=== PATIENT | male | born 1975 | race African-American/Black ===

== ENCOUNTER 2017-09-12 15:11 | Inpatient (IN) | payer OTHER, SELFPAY ==
[2017-09-12 17:13] LABS: Absolute Lymphocytes (CBC) 0.6 K/uL (0.7-4.9); Absolute Monocytes 0.4 K/uL (0.1-1.3); Absolute Neutrophil 1.8 K/uL (1.8-8.0); Basophils % 1.1 % (0-1.3); Eosinophils % 9.7 % (0-4.4); Hematocrit 29.4 % (39.6-49.0); Lymphocytes % 19.4 % (15.3-44.8); MCH 25.6 pg (27.0-35.0); MCV 79.4 fL (80-100); Monocytes % 11.7 % (3.3-12.3)
[2017-09-12 17:22] LABS: Protime INR 1.03
[2017-09-12 17:29] LABS: Albumin 4.4 g/dL (3.2-5.5); Bilirubin Direct 0.1 mg/dL (0-0.2); Bilirubin Total 0.9 mg/dL (0.3-1.2); Magnesium 2.2 mg/dL (1.8-2.5); Protein, Total 7.5 g/dL (6.0-8.3)
[2017-09-12 17:32] LABS: CKMB Creatine Kinase MB 6.7 ng/ml (0.3-4.0)
--- NOTE | 2017-09-12 17:41 | EDPHYS ---
Physician Documentation [facility] Name: Jermaine Rivera Age: 42 yrs Sex: Male : 1975 Arrival Date: 09/12/2017 Time: 15:15 Bed 19 Private MD: ED Physician Riley Stovall HPI: 09/12 17:35 This 42 yrs old Black Male presents to ER via Ambulatory with complaints of Vomiting, iris Feet Swelling. 17:35 The patient presents to the emergency department with nausea. Onset: The iris symptoms/episode began/occurred 3 day(s) ago. 17:36 The patient presents with swelling. Modifying factors: The symptoms are alleviated by iris nothing. the symptoms are aggravated by nothing. Associated signs and symptoms: The patient has no apparent associated signs or symptoms. Possible causes: renal failure. The symptoms are aggravated by nothing. The symptoms are alleviated by nothing. Historical: - Allergies: 15:19 No Known Allergies; hj - PMHx: 15:19 Hypertension; Renal Disease; hj - PSHx: 15:19 None; hj - Immunization history:: Adult Immunizations unknown. - Social history:: Smoking status: Patient/guardian denies using tobacco. - Family history:: not pertinent. ROS: 17:37 Constitutional: Negative for fever, chills, and weight loss, Eyes: Negative for injury, iris pain, redness, and discharge, ENT: Negative for injury, pain, and discharge, Neck: Negative for injury, pain, and swelling, Cardiovascular: Negative for chest pain, palpitations, and edema, Abdomen/GI: Negative for abdominal pain, nausea, vomiting, diarrhea, and constipation, Back: Negative for injury and pain, : Negative for injury, bleeding, discharge, and swelling, MS/Extremity: Negative for injury and deformity, Skin: Negative for injury, rash, and discoloration, Neuro: Negative for headache, weakness, numbness, tingling, and seizure, Psych: Negative for depression, anxiety, suicide ideation, homicidal ideation, and hallucinations, Allergy/Immunology: Negative for hives, rash, and allergies, Endocrine: Negative for neck swelling, polydipsia, polyuria, polyphagia, and marked weight changes, Hematologic/Lymphatic: Negative for swollen nodes, abnormal bleeding, and unusual bruising. 17:37 Respiratory: Positive for cough, shortness of breath. Exam: 17:37 Constitutional: This is a well developed, well nourished patient who is awake, alert, iris and in no acute distress. Head/Face: Normocephalic, atraumatic. Eyes: Pupils equal round and reactive to light, extra-ocular motions intact. Lids and lashes normal. Conjunctiva and sclera are non-icteric and not injected. Cornea within normal limits. Periorbital areas with no swelling, redness, or edema. ENT: Nares patent. No nasal discharge, no septal abnormalities noted. Tympanic membranes are normal and external auditory canals are clear. Oropharynx with no redness, swelling, or masses, exudates, or evidence of obstruction, uvula midline. Mucous membranes moist. Neck: Trachea midline, no thyromegaly or masses palpated, and no cervical lymphadenopathy. Supple, full range of motion without nuchal rigidity, or vertebral point tenderness. No Meningismus. Chest/axilla: Normal chest wall appearance and motion. Nontender with no deformity. No lesions are appreciated. Cardiovascular: Regular rate and rhythm with a normal S1 and S2. No gallops, murmurs, or rubs. Normal PMI, no JVD. No pulse deficits. Respiratory: Lungs have equal breath sounds bilaterally, clear to auscultation and percussion. No rales, rhonchi or wheezes noted. No increased work of breathing, no retractions or nasal flaring. Abdomen/GI: Soft, non-tender, with normal bowel sounds. No distension or tympany. No guarding or rebound. No evidence of tenderness throughout. Back: No spinal tenderness. No costovertebral tenderness. Full range of motion. Skin: Warm, dry with normal turgor. Normal color with no rashes, no lesions, and no evidence of cellulitis. Neuro: Awake and alert, GCS 15, oriented to person, place, time, and situation. Cranial nerves II-XII grossly intact. Motor strength 5/5 in all extremities. Sensory grossly intact. Cerebellar exam normal. Normal gait. Psych: Awake, alert, with orientation to person, place and time. Behavior, mood, and affect are within normal limits. 17:37 Musculoskeletal/extremity: Extremities: grossly normal except: swelling, ROM: full active range of motion, full passive range of motion, Circulation is intact in all extremities. Compartment Syndrome exam of affected extremity: is normal. DVT Exam: no pain, no tenderness, negative Homans' sign noted on exam, no appreciated bluish discoloration, no erythema, no increased warmth, swelling. Vital Signs: 15:19 BP 166 / 103; Pulse 87; Resp 18; Temp 98.4(TE); Pulse Ox 100% on R/A; Weight 83.91 kg; hj Height 6 ft. 1 in. (185.42 cm); 17:04 BP 165 / 105; Pulse 74; Resp 18; Temp 98.1; Pulse Ox 99% on R/A; Pain 8/10; ch 19:18 BP 171 / 105; Pulse 81; Resp 20; Temp 98.2; Pulse Ox 99% on R/A; Pain 7/10; ch 15:19 Body Mass Index 24.41 (83.91 kg, 185.42 cm) hj MDM: 15:47 Patient medically screened. [facility] 17:38 Data reviewed: vital signs, nurses notes, lab test result(s), EKG, radiologic studies, iris plain films. 09/12 16:38 Order name: Basic Metabolic Panel [facility] 09/12 16:38 Order name: BNP; Complete Time: 17:54 [facility] 09/12 16:38 Order name: CBC with Diff; Complete Time: 17:14 [facility] 09/12 16:38 Order name: Ckmb [facility] 09/12 16:38 Order name: CPK [facility] 09/12 16:38 Order name: LFT's 09/12 16:38 Order name: Magnesium [facility] 09/12 16:38 Order name: PT-INR; Complete Time: 17:54 09/12 16:38 Order name: Ptt, Activated; Complete Time: 17:54 [facility] 09/12 16:38 Order name: Troponin (emerg Dept Use Only); Complete Time: 17:32 09/12 16:38 Order name: XRAY Chest (1 view) 09/12 16:38 Order name: EKG; Complete Time: 16:39 09/12 16:38 Order name: Cardiac monitoring; Complete Time: 17:08 09/12 16:38 Order name: EKG - Nurse/Tech; Complete Time: 18:35 09/12 16:38 Order name: IV Saline Lock; Complete Time: 17:09 09/12 16:38 Order name: Labs collected and sent; Complete Time: 17:09 [facility] 09/12 16:38 Order name: O2 Per Protocol; Complete Time: 17: [facility] 09/12 16:38 Order name: O2 Sat Monitoring; Complete Time: 17: [facility] 09/12 17:44 Order name: CONS Physician Consult EDMS Administered Medications: 17:55 Drug: Kayexalate 45 grams Route: PO; ch 18:38 Follow up: Response: No adverse reaction; Marked relief of symptoms ch 17:55 Drug: Zofran 4 mg Route: IVP; Site: left forearm; ch 18:37 Follow up: Response: No adverse reaction; Marked relief of symptoms ch 18:00 Drug: D50W 50 ml Route: IVP; Site: left forearm; ch 18:37 Follow up: Response: No adverse reaction; Marked relief of symptoms ch 18:00 Drug: Albuterol - atroVENT (3:1) (2.5 mg - 0.5 mg) 3 ml Route: Nebulizer; ch 18:37 Follow up: Response: No adverse reaction; Marked relief of symptoms ch 18:05 Drug: Sodium Bicarbonate 1 amp Route: IVP; Site: left forearm; ch 19:20 Follow up: Response: No adverse reaction; Marked relief of symptoms ch 18:05 Drug: Insulin Regular Human 10 units {Co-Signature: ae1 (Teja Lao RN).} Route: ch IVP; Site: left forearm; 19:30 Follow up: Response: No adverse reaction ch 18:15 Drug: Calcium Gluconate 1 grams Route: IVPB; Infused Over: 20 mins; Site: left forearm; ch 18:38 Follow up: IV Status: Completed infusion ch 19:20 Follow up: IV Status: Completed infusion ch Disposition: 09/12/17 17:40 Hospitalization ordered by Jeferson Mccrary for Inpatient Admission. Preliminary diagnosis are Unspecified kidney failure - acute on chronic, Hyperkalemia, Essential (primary) hypertension. - Bed requested for Telemetry/MedSurg (Inpatient). - Status is Inpatient Admission. ch - Condition is Fair. - Problem is new. - Symptoms have improved. UTI on Admission? No Signatures: Dispatcher [employer] EDMS Vanessa Maravilla RN RN ch Anderson, Corey, MD MD cha Joaquin, Henry, RN RN Kate Tan RN RN yaya Lao RN ae1
--- NOTE | 2017-09-12 17:41 | ER ---
Nurse's Notes [facility] Name: Jermaine Rivera Age: 42 yrs Sex: Male : 1975 Arrival Date: 09/12/2017 Time: 15:15 Bed 19 Private MD: Diagnosis: Unspecified kidney failure-acute on chronic;Hyperkalemia;Essential (primary) hypertension Presentation: 09/12 15:17 Presenting complaint: Patient states: i noticed my feet is swollen for a week now, hx hj of renal failure, haven't had dialysis for a month; reports nausea;. Transition of care: patient was not received from another setting of care. Onset of symptoms was September 12, 2017. Care prior to arrival: None. 15:17 Method Of Arrival: Ambulatory 15:17 Acuity: FERNANDA 3 hj Triage Assessment: 15:19 General: Appears in no apparent distress. uncomfortable, Behavior is calm, cooperative, hj appropriate for age. Pain: Complains of pain in right leg and left leg. GI: Reports lower abdominal pain, upper abdominal pain, nausea. Historical: - Allergies: 15:19 No Known Allergies; hj - PMHx: 15:19 Hypertension; Renal Disease; hj - PSHx: 15:19 None; hj - Immunization history:: Adult Immunizations unknown. - Social history:: Smoking status: Patient/guardian denies using tobacco. - Family history:: not pertinent. Screenin:04 Abuse screen: Denies threats or abuse. Denies injuries from another. Nutritional ch screening: No deficits noted. Tuberculosis screening: No symptoms or risk factors identified. Fall Risk None identified. Assessment: 15:19 GI: Abdomen is non-distended. hj 17:04 General: Appears in no apparent distress. uncomfortable, Behavior is calm, cooperative, ch appropriate for age. Pain: Complains of pain in abdomen, right foot, left foot, right cruz, anterior aspect of right ankle, dorsum of right foot, left cruz, anterior aspect of left ankle and dorsum of left foot Pain currently is 8 out of 10 on a pain scale. Pain began suddenly. Neuro: No deficits noted. Respiratory: Airway is patent Respiratory effort is even, unlabored, Breath sounds are coarse bilaterally. GI: Bowel sounds present X 4 quads. Abd is soft X 4 quads Abd is non tender X 4 quads. : Reports PT STATES HE URINATES BUT NOT MUCH. Derm: Skin is intact, Skin is dry, Skin is normal, Skin temperature is warm. Musculoskeletal: Reports pain in abdomen, right foot, left foot, right leg and left leg. 18:12 Reassessment: duck tape removed from dialysis port, wound cleaned very well with galdino vail and re dressed with central line dressing kit. pt tolerated well. 18:36 Reassessment: Patient appears in no apparent distress at this time. No changes from previously documented assessment. Patient and/or family updated on plan of care and expected duration. Pain level reassessed. Patient is alert, oriented x 3, equal unlabored respirations, skin warm/dry/pink. 19:18 Reassessment: Patient appears in no apparent distress at this time. Patient and/or ch family updated on plan of care and expected duration. Pain level reassessed. Patient is alert, oriented x 3, equal unlabored respirations, skin warm/dry/pink. Patient states symptoms have improved. 19:31 Reassessment: Patient appears in no apparent distress at this time. pt cannot urinate ch for me in the room. report given to Dialysis nurse, and dialysis nurse takes pt from room. she states she will take the pt to his room in 3-4 hours when the dialysis is finished. 19:43 Reassessment: Patient appears in no apparent distress at this time. report given to Hetal Meng on floor. pt will be transported to floor after dialysis by the dialysis nurse. family verb understanding of where pt will be, family takes all fo pt belongings. Vital Signs: 15:19 BP 166 / 103; Pulse 87; Resp 18; Temp 98.4(TE); Pulse Ox 100% on R/A; Weight 83.91 kg; Height 6 ft. 1 in. (185.42 cm); 17:04 BP 165 / 105; Pulse 74; Resp 18; Temp 98.1; Pulse Ox 99% on R/A; Pain 8/10; ch 19:18 BP 171 / 105; Pulse 81; Resp 20; Temp 98.2; Pulse Ox 99% on R/A; Pain 7/10; ch 15:19 Body Mass Index 24.41 (83.91 kg, 185.42 cm) ED Course: 15:15 Patient arrived in ED. mr 15:18 Triage completed. hj 15:19 Arm band placed on left wrist. hj 15:47 Riley Stovall MD is Attending Physician. iris 16:46 Vanessa Maravilla, CHRISTOPHE is Primary Nurse. ch 17:04 No apparent distress. Resting quietly. ch 17:04 Patient has correct armband on for positive identification. Placed in gown. Bed in low ch position. Call light in reach. Side rails up X 1. street department dispatcher on. Pulse ox on. NIBP on. Warm blanket given. 17:04 No provider procedures requiring assistance completed. Initial lab(s) drawn, by hi, ch sent to lab. Inserted saline lock: 22 gauge in left forearm, using aseptic technique. Blood collected. 17:32 EKG done, by therapy technician. reviewed by Riley Stovall MD. at1 17:34 X-ray completed. Portable x-ray completed in exam room. Patient tolerated procedure ag1 well. 17:36 XRAY Chest (1 view) In Process Unspecified. EDCT 17:39 Jeferson Mccrary DO is Hospitalizing Provider. iris 19:18 Patient admitted, IV remains in place. ch Administered Medications: 17:55 Drug: Kayexalate 45 grams Route: PO; ch 18:38 Follow up: Response: No adverse reaction; Marked relief of symptoms ch 17:55 Drug: Zofran 4 mg Route: IVP; Site: left forearm; ch 18:37 Follow up: Response: No adverse reaction; Marked relief of symptoms ch 18:00 Drug: D50W 50 ml Route: IVP; Site: left forearm; ch 18:37 Follow up: Response: No adverse reaction; Marked relief of symptoms ch 18:00 Drug: Albuterol - atroVENT (3:1) (2.5 mg - 0.5 mg) 3 ml Route: Nebulizer; ch 18:37 Follow up: Response: No adverse reaction; Marked relief of symptoms ch 18:05 Drug: Sodium Bicarbonate 1 amp Route: IVP; Site: left forearm; ch 19:20 Follow up: Response: No adverse reaction; Marked relief of symptoms ch 18:05 Drug: Insulin Regular Human 10 units {Co-Signature: ae1 (Teja Lao RN).} Route: ch IVP; Site: left forearm; 19:30 Follow up: Response: No adverse reaction ch 18:15 Drug: Calcium Gluconate 1 grams Route: IVPB; Infused Over: 20 mins; Site: left forearm; 18:38 Follow up: IV Status: Completed infusion 19:20 Follow up: IV Status: Completed infusion Outcome: 17:40 Decision to Hospitalize by Provider. [facility] 19:19 Admitted to Med/surg 19:19 Condition: stable 19:44 Patient left the ED. Signatures: Dispatcher [employer] EDMS Vanessa Maravilla RN RN Riley Johns MD MD cha Rivera, Maria mr Britt moses, chief contract officer EKG Tat1 Rukhsana Neri ag1 Alex Ozuna RN RN Teja Lao RN ae1
--- NOTE | 2017-09-12 17:53 | RAD REPORT ---
EXAM DESCRIPTION: RAD - Chest Single View - 09/12/2017 5:36 pm CLINICAL HISTORY: Chest pain, nausea COMPARISON: 08/15/2017 FINDINGS: Portable technique limits examination quality. The lungs are grossly clear. The heart is normal in size. No displaced fractures.Right-sided venous c atheter its tip in the SVC. IMPRESSION: No acute intrathoracic process suspected.
[2017-09-12 17:57] LABS: Potassium 6.4 mEq/L (3.6-5.0)
[2017-09-12] MEDS ORDERED: CALCIUM GLUCONATE 1gm/100 ML NS (4.65 mEq/100mL) IV ONE ×2 (18:00)
[2017-09-12] MEDS ORDERED: IPRATROPIUM BROM 0.5MG/2.5ML ONE (18:04)
[2017-09-12] MEDS ORDERED: ALBUTEROL 2.5 MG/3 ML NEB SOL ONE (18:04)
[2017-09-12] MEDS ORDERED: INSULIN -REGULAR HUMAN 50 UNIT/0.5 ML ML ONE (18:04)
[2017-09-12] MEDS ORDERED: SOD POLYSTYREN SUL 15 GM/60 ML UCUP ONE (18:05)
[2017-09-12] MEDS ORDERED: SODIUM BICARB 50 MEQ/50ML VIAL ONE (18:05)
[2017-09-12] MEDS ORDERED: D50W 25 GM/50 ML SYRINGE IV ONE (18:06)
[2017-09-12] MEDS ORDERED: ACETAMINOPHEN 500 MG TAB PO PRN (18:10)
[2017-09-12] MEDS ORDERED: ONDANSETRON 4 MG/2 ML VIAL IV PRN (18:10)
[2017-09-12] MEDS ORDERED: ONDANSETRON 4 MG/2 ML VIAL ONE (18:13)
--- NOTE | 2017-09-12 18:29 | P.HP ---
Certification for Inpatient Patient admitted to: Inpatient With expected LOS: >2 Midnights Patient will require the following post-hospital care: Other Practitioner: I am a practitioner with admitting privileges, knowledge of patient current condition, hospital course, and medical plan of care. Services: Services provided to patient in accordance with Admission requirements found in Title 42 Section 412.3 of the Code of Federal Regulations Patient History Date of Service: 09/12/17 Primary Care Provider: Dr. Lomeli Reason for admission: Fatigue, acute renal failure History of Present Illness: 42-year-old male presented emergency room with increasing fatigue, lower extremity pain and acute renal failure. Patient has history of end-stage renal disease and hypertension. He is not able to get dialysis due to insurance purposes. He is waiting to get Medicare. Once Medicare approves for him to get dialysis then he will start. Today he was complaining of pain to the lower extremities. He had some mild shortness of breath. No chest pain was noted. Increasing nausea and vomiting was noted. He reported some fatigue and poor appetite. He has not eaten well over the last week. His last dialysis was about 1 month ago. In the ER the patient was evaluated. White count 3.0, hemoglobin 9.5, platelet count of 86. Chest x-ray unremarkable. Sodium 133, potassium 6.4, BUN of 167. Creatinine 40. GFR of 1. Glucose 81. Alk-phos 32. CK of 6.7. Troponin 0.21. BNP 231. The patient was treated for his hyperkalemia in the emergency room. He will be admitted for dialysis. Nephrology has been consulted. When I saw the patient ER, he appeared comfortable. He did report some fatigue. No significant nausea vomiting noted. Patient appears compliant with his medications. Allergies No Known Allergies Allergy (Verified 08/06/17 01:36) Home medications list reviewed: Yes Home Medications: Metoprolol Tartrate [Lopressor*] 100 mg PO BID #60 tab 05/17/17 Terazosin HCl [Hytrin*] 10 mg PO BID #60 cap 05/17/17 Calcitrol [Rocaltrol*] 0.5 mcg PO DAILY #30 cap 08/12/17 Cholecalciferol (Vitamin D3) [Vitamin D 5,000 IU Cap*] 5,000 unit PO DAILY #30 cap 08/12/17 Hydralazine HCl [Apresoline] 100 mg PO TID #90 tablet 08/12/17 Levofloxacin [Levaquin*] 500 mg PO Q48H #5 tab 08/12/17 Nifedipine [Procardia Xl] 90 mg PO BID #60 tab.er.24 08/12/17 Ramipril [Altace] 10 mg PO DAILY #30 capsule 08/12/17 Sevelamer Carbonate [Renvela*] 1,600 mg PO TIDWM #90 tablet 08/12/17 - Past Medical/Surgical History Diabetic: No -: Hypertension -: End-stage renal disease -: Diastolic CHF -: Anemia of chronic disease -: Thrombocytopenia -: Left foot sx Psychosocial/ Personal History: The patient is single. He has 9 children. He does not work. He recently got out of residential in May of 2016. - Family History Mother -: Heart disease, Hypertension, Kidney disease - Social History Smoking Status: Unknown if ever smoked Alcohol use: No CD- Drugs: No Caffeine use: Yes Place of Residence: Home Review of Systems General: Weakness, Malaise, As per HPI Eyes: Unremarkable ENT: Unremarkable Respiratory: Shortness of Breath, As per HPI Cardiovascular: As per HPI Gastrointestinal: Nausea, Vomiting, As per HPI Genitourinary: Unremarkable Musculoskeletal: Leg Pain, As per HPI Integumentary: Unremarkable Neurological: Weakness, As per HPI Lymphatics: Unremarkable Physical Examination - Physical Exam General: Alert, In no apparent distress, Oriented x3, Cooperative HEENT: Atraumatic, Normocephalic, PERRLA, Other (Dry mucous membranes) Neck: Supple, No Thyromegaly Respiratory: Clear to auscultation bilaterally, Normal air movement Cardiovascular: Normal pulses, Regular rate/rhythm Gastrointestinal: Normal bowel sounds, Soft and benign, Non-distended, No tenderness, No masses, No rebound, No guarding Musculoskeletal: No erythema, No warmth, Tenderness (Pain to the lower extremities bilateral. No significant edema noted.) Integumentary: No tenderness/swelling, No erythema, No warmth, No cyanosis Neurological: Normal speech, Normal strength at 5/5 x4 extr, Normal tone, Normal affect Lymphatics: No axilla or inguinal lymphadenopathy - Studies Laboratory Data (last 24 hrs) 09/12/17 17:00: PT 12.2, INR 1.03, APTT 26.8 09/12/17 17:00: WBC 3.0 L, Hgb 9.5 L, Hct 29.4 L, Plt Count 86 L 09/12/17 17:00: B-Natriuretic Peptide 238 H 09/12/17 17:00: Sodium 133 L, Potassium 6.4 H*, BUN 162 H, Creatinine 40.46 H*, Glucose 81, Magnesium 2.2, Total Bilirubin 0.9, AST 21, ALT 10, Alkaline Phosphatase 32 L Assessment and Plan - Problems (Diagnosis) (1) Chronic renal disease Current Visit: Yes Status: Acute Plan: His last dialysis was 1 month ago. Patient will need a emergent dialysis. ER has contacted nephrology. Patient will be given medication for hyperkalemia. Will continue with his blood pressure medication. Anticipate better control of blood pressure and symptoms after dialysis. Will monitor closely. Qualifiers: Chronic kidney disease stage: stage 5, not on chronic dialysis Qualified Code(s): N18.5 - Chronic kidney disease, stage 5 (2) CHF (congestive heart failure) Current Visit: Yes Status: Chronic Plan: Patient with chronic CHF. Will monitor closely. Qualifiers: Heart failure type: diastolic Heart failure chronicity: chronic Qualified Code(s): I50.32 - Chronic diastolic (congestive) heart failure (3) Pulmonary hypertension Current Visit: Yes Status: Chronic Plan: Patient with chronic pulmonary hypertension. Will restart home medications. (4) Thrombocytopenia Current Visit: Yes Status: Chronic Plan: Thrombocytopenia noted. Likely from chronic disease. Will monitor closely. (5) Hyperkalemia Current Visit: Yes Status: Acute Plan: Patient given medication in the ER. Patient will need dialysis. Nephrology consulted. (6) Nausea and vomiting Current Visit: Yes Status: Acute Plan: Will provide medication as needed. This is likely from uremia. Qualifiers: Vomiting type: unspecified Vomiting Intractability: unspecified Qualified Code(s): R11.2 - Nausea with vomiting, unspecified (7) Anemia Onset Date: 08/07/17 Current Visit: No Status: Chronic Plan: This is likely from chronic disease. Will monitor closely. Qualifiers: Anemia type: due to chronic kidney disease Chronic kidney disease stage: stage 5, not on chronic dialysis Qualified Code(s): N18.5 - Chronic kidney disease, stage 5; D63.1 - Anemia in chronic kidney disease; D63.1 - Anemia in chronic kidney disease Discharge Plan: Home Plan to discharge in: Greater than 2 days - Advance Directives Does patient have a Living Will: No Does patient have a Durable POA for Healthcare: No - Code Status/Comfort Care Code Status Assessed: Yes Time Spent Managing Pts Care (In Minutes): 55
--- NOTE | 2017-09-12 19:06 | EKG ---
Test Date: 2017-09-12 Test Time: 17:20:46 [employer] Mason: NATALIA MEASUREMENT RESULTS: Intervals: Rate: 87 NC: 132 QRSD: 94 QT: 396 QTc: 476 [place]: P: 79 NC: 132 QRS: 53 T: 121 INTERPRETIVE STATEMENTS: Normal sinus rhythm Minimal voltage criteria for LVH, may be normal variant T wave abnormality, consider lateral ischemia Prolonged QT Abnormal ECG Compared to ECG 08/15/2017 13:28:12 Left ventricular hypertrophy now present Prolonged QT interval now present T-wave abnormality still present Electronically Signed On 09-12-17 19:05:36 CDT by Naveen Vasquez
[2017-09-12] MEDS: NIFEDIPINE XL 90 MG TABLET PO SCH (21:49)
[2017-09-12] MEDS: METOPROLOL TAR 50 MG TAB PO SCH (21:49)
[2017-09-12] MEDS ORDERED: SODIUM CHLORIDE 0.9% 10ML INJ IV PRN (21:49)
[2017-09-12] MEDS: HYDRALAZINE HCL 25 MG TABLET PO SCH (21:49)
[2017-09-12] MEDS: TERAZOSIN HCL 5 MG CAP PO SCH (21:49)
[2017-09-12] MEDS: ENOXAPARIN 30 MG/0.3 ML SQ SCH (22:40)
[2017-09-12 23:44] VITALS: BMI 19.3
[2017-09-13] MEDS ORDERED: HYDRALAZINE HCL 20 MG/ML VIAL IV PRN (03:02)
[2017-09-13] MEDS ORDERED: ZOLPIDEM TARTRATE 10 MG TABLET PO ONE (03:22)
[2017-09-13 06:12] LABS: Absolute Lymphocytes (CBC) 0.6 K/uL (0.7-4.9); Absolute Monocytes 0.3 K/uL (0.1-1.3); Absolute Neutrophil 1.9 K/uL (1.8-8.0); Basophils % 0.9 % (0-1.3); Eosinophils % 5.3 % (0-4.4); Hematocrit 27.6 % (39.6-49.0); Lymphocytes % 20.9 % (15.3-44.8); MCH 26.3 pg (27.0-35.0); MCV 77.4 fL (80-100); MPV 8.1 fL (7.6-11.3); Monocytes % 10.9 % (3.3-12.3); RBC Red Blood Cell Count 3.57 M/uL (4.33-5.43)
[2017-09-13 08:07] LABS: Blood Morphology Comment NOT SEEN (NOT SEEN); Platelet Estimate DECR; Urine White Blood Cell Casts OK
--- NOTE | 2017-09-13 08:26 | P.PN ---
Subjective Date of Service: 09/13/17 Primary Care Provider: Dr. Lomeli Chief Complaint: Fatigue, acute renal failure Subjective: Improving (Patient doing better than yesterday. Patient did receive dialysis yesterday) Physical Examination - Vital Signs Temperature: 98.4 F Blood Pressure: 165/79 Pulse: 92 Respirations: 16 Pulse Ox (%): 98 - Physical Exam General: Alert, In no apparent distress, Oriented x3, Cooperative HEENT: Atraumatic Neck: Supple, No Thyromegaly Respiratory: Clear to auscultation bilaterally, Normal air movement Cardiovascular: Normal pulses, Regular rate/rhythm Gastrointestinal: Normal bowel sounds, Soft and benign, Non-distended, No tenderness, No masses, No rebound, No guarding Musculoskeletal: No erythema, No tenderness, No warmth Integumentary: No tenderness/swelling, No erythema, No warmth, No cyanosis Neurological: Normal speech, Normal strength at 5/5 x4 extr, Normal tone, Normal affect - Studies Laboratory Data (last 24 hrs) 09/12/17 17:00: PT 12.2, INR 1.03, APTT 26.8 09/12/17 17:00: WBC 3.0 L, Hgb 9.5 L, Hct 29.4 L, Plt Count 86 L 09/12/17 17:00: B-Natriuretic Peptide 238 H 09/12/17 17:00: Sodium 133 L, Potassium 6.4 H*, BUN 162 H, Creatinine 40.46 H*, Glucose 81, Magnesium 2.2, Total Bilirubin 0.9, AST 21, ALT 10, Alkaline Phosphatase 32 L Medications List Reviewed: Yes Assessment & Plan - Problems (Diagnosis) (1) Chronic renal disease Current Visit: Yes Status: Acute Plan: His last dialysis was 1 month ago. Patient did receive dialysis yesterday. Anticipate he received it again today peer away to review lab. Will discuss with nephrology. Will have social service consulted to see if chronic dialysis can be expedited. Patient waiting to get on chronic dialysis. I will be out of town this weekend. Dr. Green will cover for me. Qualifiers: Chronic kidney disease stage: stage 5, not on chronic dialysis Qualified Code(s): N18.5 - Chronic kidney disease, stage 5 (2) CHF (congestive heart failure) Current Visit: Yes Status: Chronic Plan: Patient with chronic CHF. Will monitor closely. Qualifiers: Heart failure type: diastolic Heart failure chronicity: chronic Qualified Code(s): I50.32 - Chronic diastolic (congestive) heart failure (3) Pulmonary hypertension Current Visit: Yes Status: Chronic Plan: Patient with chronic pulmonary hypertension. Will continue to adjust blood pressure medication. Overall improved. (4) Thrombocytopenia Current Visit: Yes Status: Chronic Plan: Thrombocytopenia noted. Likely from chronic disease. Will monitor closely. (5) Hyperkalemia Current Visit: Yes Status: Acute Plan: Patient given medication in the ER. Patient did receive dialysis yesterday. Patient to get dialysis again today. (6) Nausea and vomiting Current Visit: Yes Status: Acute Plan: Will provide medication as needed. This is likely from uremia. Overall this has improved. Qualifiers: Vomiting type: unspecified Vomiting Intractability: unspecified Qualified Code(s): R11.2 - Nausea with vomiting, unspecified (7) Anemia Onset Date: 08/07/17 Current Visit: No Status: Chronic Plan: This is likely from chronic disease. Will monitor closely. Qualifiers: Anemia type: due to chronic kidney disease Chronic kidney disease stage: stage 5, not on chronic dialysis Qualified Code(s): N18.5 - Chronic kidney disease, stage 5; D63.1 - Anemia in chronic kidney disease; D63.1 - Anemia in chronic kidney disease Discharge Plan: Home Plan to discharge in: 48 Hours Time Spent Managing Pts Care (In Minutes): 55
[2017-09-13] MEDS: TERAZOSIN HCL 5 MG CAP PO SCH ×2 (09:00→20:41)
[2017-09-13] MEDS: HYDRALAZINE HCL 25 MG TABLET PO SCH ×3 (09:00→20:42)
[2017-09-13] MEDS: NIFEDIPINE XL 90 MG TABLET PO SCH ×2 (09:00→20:42)
[2017-09-13 10:17] LABS: Magnesium 1.9 mg/dL (1.8-2.5); Potassium 3.9 mEq/L (3.6-5.0); Thyroid Stimulating Hormone 0.61 uIU/mL (0.34-5.60)
[2017-09-13] MEDS: ENOXAPARIN 30 MG/0.3 ML SQ SCH (10:55)
[2017-09-13] MEDS: PANTOPRAZOLE 40 MG INJ IVP SCH (11:41)
[2017-09-13] MEDS: METOPROLOL TAR 50 MG TAB PO SCH ×2 (11:41→20:41)
[2017-09-13] MEDS ORDERED: MANNITOL 25% 12.5 GM/50 ML VIAL IV PRN (14:10)
[2017-09-13] MEDS ORDERED: NA CHLORIDE 0.9% 1,000 ML IV PRN (14:10)
--- NOTE | 2017-09-13 14:17 | P.CNS ---
Date of Consult: 09/13/17 Reason for Consult: ESRD Requesting Physician: Jeferson Mccrray Primary Care Provider: Dr. Lomeli Chief Complaint: Fatigue, acute renal failure History of Present Illness: 42-year-old male presented emergency room with increasing fatigue, lower extremity pain and acute renal failure. Patient has history of end-stage renal disease and hypertension. He is not able to get dialysis due to insurance purposes. He is waiting to get Medicare. Once Medicare approves for him to get dialysis then he will start. Today he was complaining of pain to the lower extremities. He had some mild shortness of breath. No chest pain was noted. Increasing nausea and vomiting was noted. He reported some fatigue and poor appetite. He has not eaten well over the last week. His last dialysis was about 1 month ago. 17:35 This 42 yrs old Black Male presents to ER via Ambulatory with complaints of Vomiting, iris Feet Swelling. 17:35 The patient presents to the emergency department with nausea. Onset: The iris symptoms/episode began/occurred 3 day(s) ago. 17:36 The patient presents with swelling. Modifying factors: The symptoms are alleviated by iris nothing. the symptoms are aggravated by nothing. Associated signs and symptoms: The patient has no apparent associated signs or symptoms. Possible causes: renal failure. The symptoms are aggravated by nothing. The symptoms are alleviated by nothing. Allergies No Known Allergies Allergy (Verified 08/06/17 01:36) Home medications list reviewed: Yes Home Medications: Calcitrol [Rocaltrol*] 0.5 mcg PO DAILY #30 cap 08/12/17 Cholecalciferol (Vitamin D3) [Vitamin D 5,000 IU Cap*] 5,000 unit PO DAILY #30 cap 08/12/17 Hydralazine HCl [Apresoline] 100 mg PO TID #90 tablet 08/12/17 Levofloxacin [Levaquin*] 500 mg PO Q48H #5 tab 08/12/17 Nifedipine [Procardia Xl] 90 mg PO BID #60 tab.er.24 08/12/17 Ramipril [Altace] 10 mg PO DAILY #30 capsule 08/12/17 Sevelamer Carbonate [Renvela*] 1,600 mg PO TIDWM #90 tablet 08/12/17 - Past Medical/Surgical History Diabetic: No -: Hypertension -: End-stage renal disease -: Diastolic CHF -: Anemia of chronic disease -: Thrombocytopenia -: Left foot sx Psychosocial/ Personal History: The patient is single. He has 9 children. He does not work. He recently got out of [facility] in May of 2016. - Family History Mother Medical History: Heart disease, Hypertension, Kidney disease - Social History Alcohol use: No CD- Drugs: No Caffeine use: No Place of Residence: Home Review of Systems 10-point ROS is otherwise unremarkable General: Weakness, Malaise Respiratory: SOB with Excertion Physical Examination Temp Pulse Resp BP Pulse Ox 98.7 F 97 H 16 179/88 H 99 09/13/17 11:36 09/13/17 11:41 09/13/17 11:36 09/13/17 11:41 09/13/17 11:36 General: Oriented x3, Cooperative HEENT: Atraumatic Neck: Supple Cardiovascular: No edema, Regular rate/rhythm Gastrointestinal: Soft and benign, Non-distended, No guarding Musculoskeletal: No clubbing, No contractures Integumentary: No rashes, No cyanosis Neurological: Normal speech Laboratory Data (last 24 hrs) 09/12/17 17:00: PT 12.2, INR 1.03, APTT 26.8 09/12/17 17:00: WBC 3.0 L, Hgb 9.5 L, Hct 29.4 L, Plt Count 86 L 09/12/17 17:00: B-Natriuretic Peptide 238 H 09/12/17 17:00: Sodium 133 L, Potassium 6.4 H*, BUN 162 H, Creatinine 40.46 H*, Glucose 81, Magnesium 2.2, Total Bilirubin 0.9, AST 21, ALT 10, Alkaline Phosphatase 32 L Imagings Data: EXAM DESCRIPTION: RAD - Chest Single View - 09/12/2017 5:36 pm CLINICAL HISTORY: Chest pain, nausea COMPARISON: 08/15/2017 FINDINGS: Portable technique limits examination quality. The lungs are grossly clear. The heart is normal in size. No displaced fractures.Right-sided venous catheter its tip in the SVC. IMPRESSION: No acute intrathoracic process suspected. Conclusions/Impression: A/ ESRD. Hyponatremia. HTN with CKD. Diastolic CHF, chronic. Anemia in CKD. Iron deficiency. GRAY/ Secondary HyperPTH. P/ Continue current POC and medications. Arrange for acute HD. Restart home medications as indicated. No NSAIDs. AM labs. Daily weight. Medicaid pending. Thank you kindly for the consultation. Case discussed with Dr. Mccrary.
[2017-09-13] MEDS ORDERED: ALBUMIN HUMAN 25% 50 ML IV SCH (15:00)
[2017-09-13] MEDS: EPOETIN ALFA 10,000 UNIT/ML VIAL IV SCH (17:34)
[2017-09-14 07:21] LABS: Absolute Lymphocytes (CBC) 0.5 K/uL (0.7-4.9); Absolute Monocytes 0.4 K/uL (0.1-1.3); Absolute Neutrophil 1.5 K/uL (1.8-8.0); Basophils % 0.7 % (0-1.3); Eosinophils % 7.3 % (0-4.4); Hematocrit 29.4 % (39.6-49.0); Lymphocytes % 20.5 % (15.3-44.8); MCH 25.5 pg (27.0-35.0); MCV 78.7 fL (80-100); MPV 8.4 fL (7.6-11.3); Monocytes % 14.3 % (3.3-12.3); RBC Red Blood Cell Count 3.74 M/uL (4.33-5.43)
[2017-09-14 07:38] LABS: Urine Appearance CLOUDY; Urine Blood NEGATIVE (NEG); Urine Color YELLOW; Urine Glucose NEGATIVE (NEG); Urine Protein 2+ (NEG); Urine Specific Gravity 1.015 (1.005-1.030); Urine Urobilinogen 0.2 mg/dL (0.2-1.0)
[2017-09-14 07:39] LABS: Phosphorus 7.7 mg/dL (2.5-4.3); Potassium 4.5 mEq/L (3.6-5.0)
[2017-09-14 08:02] LABS: Anisocytosis 1+; Blood Morphology Comment NOTED (NOT SEEN); Platelet Estimate DECR; Urine White Blood Cell Casts OK
[2017-09-14 08:11] LABS: Urine Bilirubin NEGATIVE (NEG); Urine Microscopic Reflex ORDER UMIC
[2017-09-14 08:12] LABS: Urine Amorphous Sediment 3+ /HPF (NONE SEEN); Urine Bacteria <20 /HPF (NONE SEEN); Urine Culture Reflex Order NOT NEEDED; Urine RBC <5 /HPF (NONE SEEN)
[2017-09-14] MEDS: PANTOPRAZOLE 40 MG INJ IVP SCH (08:53)
[2017-09-14] MEDS ORDERED: VITAMIN D 5,000 UNIT CAP PO SCH (09:00)
[2017-09-14] MEDS: HYDRALAZINE HCL 25 MG TABLET PO SCH ×2 (09:00→14:00)
[2017-09-14] MEDS: METOPROLOL TAR 50 MG TAB PO SCH (09:00)
[2017-09-14] MEDS: TERAZOSIN HCL 5 MG CAP PO SCH (09:00)
[2017-09-14] MEDS: ENOXAPARIN 30 MG/0.3 ML SQ SCH (09:00)
[2017-09-14] MEDS: NIFEDIPINE XL 90 MG TABLET PO SCH (09:00)
[2017-09-14] MEDS ORDERED: CALCITROL 0.25 MCG CAP PO SCH (09:00)
--- NOTE | 2017-09-14 10:54 | P.DS ---
Admission Date: 09/12/17 Discharge Date: 09/14/17 Primary Care Provider: Dr. Lomeli Disposition: ROUTINE DISCHARGE Discharge Condition: FAIR Reason for Admission: Fatigue, acute renal failure Brief History of Present Illness: Patient is 42 years of age admitted with fatigue had renal failure Hospital Course: No problems during the course of the stay he underwent dialysis that day of discharge was complaining feeling dizzy vital signs all stable orthostatics blood pressures ordered mild anemia nephrology consulted At the time of discharge he was alert oriented responsive claimed that he had and slept for 5 days this feeling a little dizzy this chest is clear cardiovascular system AH sounds normal abdomen soft extremities minimal edema laboratory dated patient in satisfactory condition prior to discharge Vital Signs/Physical Exam: Temp Pulse Resp BP Pulse Ox 99.3 F 58 16 133/84 95 09/14/17 08:00 09/14/17 08:00 09/14/17 08:00 09/14/17 08:00 09/14/17 08:00 Laboratory Data at Discharge: WBC 2.7 K/uL (4.3-10.9) L 09/14/17 05:37 Hgb 9.5 g/dL (13.6-17.9) L 09/14/17 05:37 Hct 29.4 % (39.6-49.0) L 09/14/17 05:37 Plt Count 80 K/uL (152-406) L 09/14/17 05:37 PT 12.2 SECONDS (9.5-12.5) 09/12/17 17:00 INR 1.03 09/12/17 17:00 APTT 26.8 SECONDS (24.3-36.9) 09/12/17 17:00 Sodium 135 mEq/L (135-145) 09/14/17 05:37 Potassium 4.5 mEq/L (3.6-5.0) 09/14/17 05:37 BUN 70 mg/dL (6-20) H D 09/14/17 05:37 Creatinine 22.63 mg/dL (0.61-1.24) H* D 09/14/17 05:37 Glucose 100 mg/dL (65-120) 09/14/17 05:37 Phosphorus 7.7 mg/dL (2.5-4.3) H 09/14/17 05:37 Magnesium 2.0 mg/dL (1.8-2.5) 09/14/17 05:37 Total Bilirubin 0.9 mg/dL (0.3-1.2) 09/12/17 17:00 AST 21 IU/L (10-42) 09/12/17 17:00 ALT 10 IU/L (10-60) 09/12/17 17:00 Alkaline Phosphatase 32 IU/L (42-121) L 09/12/17 17:00 Troponin I 0.27 ng/mL (<0.03) H 09/13/17 10:30 B-Natriuretic Peptide 238 pg/ml (<=100) H 09/12/17 17:00 Triglycerides 85 mg/dL (35-160) 09/13/17 05:52 Cholesterol 174 mg/dL (<200) 09/13/17 05:52 HDL Cholesterol 49 mg/dL (27-67) 09/13/17 05:52 Cholesterol/HDL Ratio 3.55 09/13/17 05:52 Home Medications: Calcitrol [Rocaltrol*] 0.5 mcg PO DAILY #30 cap 08/12/17 Cholecalciferol (Vitamin D3) [Vitamin D 5,000 IU Cap*] 5,000 unit PO DAILY #30 cap 08/12/17 Hydralazine HCl [Apresoline] 100 mg PO TID #90 tablet 08/12/17 Nifedipine [Procardia Xl] 90 mg PO BID #60 tab.er.24 08/12/17 Ramipril [Altace] 10 mg PO DAILY #30 capsule 08/12/17 Sevelamer Carbonate [Renvela*] 1,600 mg PO TIDWM #90 tablet 08/12/17 Patient Discharge Instructions: Patient up to follow up with Nephrology Diet: Low sodium Activity: Ad lisa
[2017-09-14 11:30] VITALS: O2SAT 95
[2017-09-14] MEDS ORDERED: CA ACETATE 667 MG CAP PO SCH (12:00)
[2017-09-14 12:31] VITALS: BP 137/85; TEMP 98.4
[2017-09-14] MEDS: EPOETIN ALFA 10,000 UNIT/ML VIAL IV SCH (13:08)
[2017-09-16 03:34] LABS: HBsAG Nonreactive (Nonreactive); Hepatitis A IgM Antibody Nonreactive
== END 2017-09-14 16:39 | disposition home or self-care (01) | DRG 291 ==
LOC: ER 15:11 → ERHOLD 17:42 → 4TH 19:09
PROVIDERS: ADMIT Family Medicine; ATTEND Internal Medicine Sleep Medicine
PROC: 5A1D70Z Performance of Urinary Filtration, Intermittent, Less than 6 Hours Per Day (ICD-10-PCS; principal; 2017-09-12)
PROC: 5A1D70Z Performance of Urinary Filtration, Intermittent, Less than 6 Hours Per Day (ICD-10-PCS; 2017-09-13)
PROC: 5A1D70Z Performance of Urinary Filtration, Intermittent, Less than 6 Hours Per Day (ICD-10-PCS; 2017-09-14)
DX: I13.2 Hypertensive heart and chronic kidney disease with heart failure and with stage 5 chronic kidney disease, or end stage renal disease (principal); N18.6 End stage renal disease; I50.32 Chronic diastolic (congestive) heart failure; N17.9 Acute kidney failure, unspecified; E21.3 Hyperparathyroidism, unspecified; I27.20 Pulmonary hypertension, unspecified; E87.5 Hyperkalemia; D63.1 Anemia in chronic kidney disease; D69.6 Thrombocytopenia, unspecified; Z99.2 Dependence on renal dialysis
CPT/HCPCS: 36415; 71045; 80048; 80061; 80074; 80076; 81003; 81015; 82550; 82553; 83735; 83880; 84100; 84439; 84443; 84484; 85025; 85610; 85730; 86317; 90935; 93005; 94640; 96365; 96375; 99285; C9113; G0257; J0360; J0610; J1650; J2405; P9047; Q4081

== ENCOUNTER 2017-09-30 22:24 | Inpatient (IN) | payer OTHER, SELFPAY ==
[2017-09-30] MEDS ORDERED: cloNIDine HCl 0.1 MG TAB ONE (23:17)
[2017-09-30] MEDS ORDERED: NA CHLORIDE 0.9% 500 ML ONE (23:18)
[2017-09-30] MEDS ORDERED: MORPHINE 4 MG/ML SYR ONE (23:18)
[2017-09-30] MEDS ORDERED: ONDANSETRON 4 MG/2 ML VIAL ONE (23:18)
[2017-09-30] MEDS ORDERED: FAMOTIDINE 20 MG/2 ML VIAL IV ONE (23:18)
[2017-10-01 00:26] LABS: Absolute Lymphocytes (CBC) 0.5 K/uL (0.7-4.9); Absolute Monocytes 0.4 K/uL (0.1-1.3); Absolute Neutrophil 2.8 K/uL (1.8-8.0); Basophils % 1.1 % (0-1.3); Eosinophils % 2.2 % (0-4.4); Hematocrit 23.9 % (39.6-49.0); Lymphocytes % 12.9 % (15.3-44.8); MCV 79.9 fL (80-100); MPV 7.6 fL (7.6-11.3); Monocytes % 9.8 % (3.3-12.3)
[2017-10-01 00:37] LABS: Albumin 3.6 g/dL (3.2-5.5); Bilirubin Direct 0.1 mg/dL (0-0.2); Bilirubin Total 0.9 mg/dL (0.3-1.2)
[2017-10-01 00:49] LABS: Potassium 6.4 mEq/L (3.6-5.0)
[2017-10-01] MEDS ORDERED: SOD POLYSTYREN SUL 15 GM/60 ML UCUP ONE (01:07)
[2017-10-01] MEDS ORDERED: LISINOPRIL 20 MG TAB ONE (01:07)
[2017-10-01] MEDS ORDERED: INSULIN -REGULAR HUMAN 50 UNIT/0.5 ML ML ONE (01:07)
[2017-10-01] MEDS ORDERED: D50W 25 GM/50 ML SYRINGE IV ONE (01:07)
[2017-10-01] MEDS ORDERED: ALBUTEROL 2.5 MG/3 ML NEB SOL ONE ×2 (01:07→01:42)
[2017-10-01] MEDS ORDERED: CALCIUM GLUCONATE 1 GM IVPB 1 GM/50 ML BAG IV ONE (01:12)
--- NOTE | 2017-10-01 01:53 | EDPHYS ---
Physician Documentation [facility] Name: Jermaine Rivera Age: 42 yrs Sex: Male : 1975 Arrival Date: 09/30/2017 Time: 22:25 Bed 5 Private MD: Fredrick Lomeli ED Physician Roger Chowdhury HPI: 10/01 01:13 This 42 yrs old Black Male presents to ER via Ambulatory with complaints of Abdominal kdr Pain, Feet Swelling. 01:13 The patient states that she has not been to dialysis for about three weeks and has been kdr having worsening abdominal pain. Onset: The symptoms/episode began/occurred gradually, 3 week(s) ago. Severity of symptoms: At their worst the symptoms were mild moderate just prior to arrival, in the emergency department the symptoms are unchanged. It is unknown whether or not the patient has had similar symptoms in the past. The patient has not recently seen a physician. Historical: - Allergies: 09/30 22:37 No Known Allergies; aa1 - PMHx: 22:37 Hypertension; Renal Disease; Dialysis; aa1 - PSHx: 22:37 None; aa1 - Immunization history:: Flu vaccine is up to date. - Social history:: Smoking status: Patient/guardian denies using tobacco. ROS: 10/01 01:13 Constitutional: Negative for fever, chills, and weight loss, Eyes: Negative for injury, kdr pain, redness, and discharge, ENT: Negative for injury, pain, and discharge, Neck: Negative for injury, pain, and swelling, Cardiovascular: Negative for chest pain, palpitations, and edema, Respiratory: Negative for shortness of breath, cough, wheezing, and pleuritic chest pain, Back: Negative for injury and pain, : Negative for injury, bleeding, discharge, and swelling, MS/Extremity: Negative for injury and deformity, Skin: Negative for injury, rash, and discoloration, Neuro: Negative for headache, weakness, numbness, tingling, and seizure activity. Psych: Negative for depression, anxiety, suicide ideation, homicidal ideation, and hallucinations, Allergy/Immunology: Negative for hives, rash, and allergies, Endocrine: Negative for neck swelling, polydipsia, polyuria, polyphagia, and marked weight changes, Hematologic/Lymphatic: Negative for swollen nodes, abnormal bleeding, and unusual bruising. Abdomen/GI: Positive for abdominal pain. Exam: 01:57 Constitutional: This is a well developed, well nourished patient who is awake, alert, kdr and in mild distress. Head/Face: Normocephalic, atraumatic. Eyes: Pupils equal round and reactive to light, extra-ocular motions intact. Lids and lashes normal. Conjunctiva and sclera are non-icteric and not injected. Cornea within normal limits. Periorbital areas with no swelling, redness, or edema. Neck: Trachea midline, no thyromegaly or masses palpated, and no cervical lymphadenopathy. Supple, full range of motion without nuchal rigidity, or vertebral point tenderness. No Meningismus. Chest/axilla: Normal chest wall appearance and motion. Nontender with no deformity. No lesions are appreciated. Cardiovascular: Regular rate and rhythm with a normal S1 and S2. No gallops, murmurs, or rubs. Normal PMI, no JVD. No pulse deficits. Respiratory: Lungs have equal breath sounds bilaterally, clear to auscultation and percussion. No rales, rhonchi or wheezes noted. No increased work of breathing, no retractions or nasal flaring. Back: No spinal tenderness. No costovertebral tenderness. Full range of motion. Skin: Warm, dry with normal turgor. Normal color with no rashes, no lesions, and no evidence of cellulitis. MS/ Extremity: Pulses equal, no cyanosis. Neurovascular intact. Full, normal range of motion. Neuro: Awake and alert, GCS 15, oriented to person, place, time, and situation. Cranial nerves II-XII grossly intact. Motor strength 5/5 in all extremities. Sensory grossly intact. Cerebellar exam normal. Normal gait. Psych: Awake, alert, with orientation to person, place and time. Behavior, mood, and affect are within normal limits. 01:57 Abdomen/GI: Inspection: abdomen appears normal, Bowel sounds: active, diminished, in all quadrants, Palpation: soft, mild abdominal tenderness, in all quadrants. Vital Signs: 09/30 22:37 BP 231 / 150; Pulse 100; Resp 18; Temp 99.0; Pulse Ox 100% on R/A; Weight 74.84 kg; aa1 Height 6 ft. 1 in. (185.42 cm); Pain 9/10; 23:29 BP 230 / 153; Pulse 98; Resp 18; Pulse Ox 100% on R/A; mt 10/01 00:09 BP 221 / 148; Pulse 96; Resp 18; Pulse Ox 100% on R/A; mt 00:55 BP 194 / 124; Pulse 100; Resp 18 S; Pulse Ox 98% on R/A; Pain 0/10; ea 01:15 BP 186 / 122; Pulse 99; Resp 18; Pulse Ox 100% ; ea 01:45 BP 177 / 113; Pulse 120; Resp 20 S; Pulse Ox 100% on 8% Nebulizer Mask; bb 02:45 BP 165 / 95; Pulse 110; Resp 18; Pulse Ox 97% on R/A; Pain 0/10; ea 09/30 22:37 Body Mass Index 21.77 (74.84 kg, 185.42 cm) aa1 MDM: 09/30 22:43 Patient medically screened. kdr 10/01 01:57 Data reviewed: vital signs, nurses notes, lab test result(s), radiologic studies. kdr Counseling: I had a detailed discussion with the patient and/or guardian regarding: the historical points, exam findings, and any diagnostic results supporting the discharge/admit diagnosis, lab results, radiology results, the need for further work-up and treatment in the hospital. 09/30 23:14 Order name: Amylase, Serum; Complete Time: 01:45 kdr 09/30 23:14 Order name: Basic Metabolic Panel; Complete Time: 01:45 kdr 09/30 23:14 Order name: CBC with Diff; Complete Time: 01:45 kdr 09/30 23:14 Order name: Hepatic Function; Complete Time: 01:45 kdr 09/30 23:14 Order name: Lipase; Complete Time: 01:45 kdr 09/30 23:14 Order name: Urine Microscopic Only kdr 09/30 23:36 Order name: Abdomen EDMS 09/30 23:14 Order name: IV Saline Lock; Complete Time: 00:15 kdr 09/30 23:14 Order name: Labs collected and sent; Complete Time: 00:15 kdr Administered Medications: 09/30 23:20 Drug: cloNIDine 0.2 mg Route: PO; ea 10/01 01:15 Follow up: BP 186 / 122; Pulse 99 bpm; Resp 18 bpm; Pulse Ox 100% ea 00:00 Drug: Pepcid 20 mg Route: IVP; Site: right antecubital; ea 01:14 Follow up: Response: No adverse reaction ea 00:10 Drug: morphine 4 mg Route: IVP; Site: right antecubital; ea 01:00 Follow up: Response: Pain is decreased ea 00:10 Drug: Zofran 4 mg Route: IVP; Site: right antecubital; ea 01:14 Follow up: Response: No adverse reaction ea 00:21 Drug: NS 0.9% 250 ml Route: IV; Rate: bolus; Site: right antecubital; ea 03:11 Follow up: Response: No adverse reaction; IV Status: Completed infusion ea 03:31 Follow up: IV Intake: 250ml bb 01:10 Drug: Lisinopril 20 mg Route: PO; bb 03:09 Follow up: Response: No adverse reaction ea 03:09 Follow up: Response: Blood pressure is lowered ea 01:13 Drug: Albuterol 2.5 mg Route: Inhalation; bb 01:16 Drug: Insulin Regular Human 10 units {Co-Signature: aminta (Raeann Worley RN).} Route: IVP; bb Site: right antecubital; 03:08 Follow up: Response: No adverse reaction ea 01:16 Drug: D50W 50 ml Route: IVP; Site: right antecubital; bb 03:08 Follow up: Response: No adverse reaction ea 01:19 Drug: Sodium Bicarbonate 1 amp Route: IVP; Site: right antecubital; bb 03:08 Follow up: Response: No adverse reaction ea 01:30 Drug: Calcium Gluconate 1 grams Route: IVPB; Infused Over: 60 mins; Site: right bb antecubital; 02:30 Follow up: IV Intake: 100ml bb 03:10 Follow up: Response: No adverse reaction; IV Status: Completed infusion ea 01:33 Drug: Albuterol 2.5 mg Route: Inhalation; bb 01:39 Drug: Kayexalate 60 grams Route: PO; bb 03:08 Follow up: Response: No adverse reaction ea 01:44 Drug: Albuterol 2.5 mg Route: Inhalation; bb 03:09 Follow up: Response: No adverse reaction ea Disposition: 10/01/17 01:52 Hospitalization ordered by Alta Pace for Inpatient Admission. Preliminary diagnosis is Acute on Chronic renal failure, Hypertension, abdominal pain. - Bed requested for Telemetry/MedSurg (Inpatient). - Status is Inpatient Admission. bb - Condition is Fair. - Problem is an acute exacerbation. - Symptoms have improved. UTI on Admission? No Signatures: Dispatcher [employer] EDMS Bobbi Laura, RN Jayla Marquez RN RN aa1 Roger Chowdhury MD MD kdr Ballard, Brenda, RN RN bb Antunez, Elena, RN RN ea Elena Antunez RN ea Corrections: (The following items were deleted from the chart) 09/30 23:36 23:16 Abdomen Pelvis W Con+CT.RAD.BRZ ordered. EDMS EDMS 10/01 00:22 09/30 23:14 Creatinine for Radiology+C.LAB.BRZ ordered. EDMS EDMS
--- NOTE | 2017-10-01 01:53 | ER ---
Nurse's Notes [facility] Name: Jermaine Rivera Age: 42 yrs Sex: Male : 1975 Arrival Date: 09/30/2017 Time: 22:25 Bed 5 Private MD: Fredrick Lomeli Diagnosis: Acute on Chronic renal failure, Hypertension, abdominal pain Presentation: 09/30 22:35 Presenting complaint: Patient states: abd pain, N/V, and swelling in feet x 2 days. aa1 Reports he has missed about 3 weeks of dialysis. Transition of care: patient was not received from another setting of care. Onset of symptoms was September 28, 2017. Initial Sepsis Screen: Does the patient meet any 2 criteria? No. Patient's initial sepsis screen is negative. Does the patient have a suspected source of infection? No. Patient's initial sepsis screen is negative. Care prior to arrival: None. 22:35 Method Of Arrival: Ambulatory aa1 22:35 Acuity: FERNANDA 2 aa1 Triage Assessment: 22:37 General: Appears in no apparent distress. comfortable, Behavior is calm, cooperative, aa1 appropriate for age. Historical: - Allergies: 22:37 No Known Allergies; aa1 - PMHx: 22:37 Hypertension; Renal Disease; Dialysis; aa1 - PSHx: 22:37 None; aa1 - Immunization history:: Flu vaccine is up to date. - Social history:: Smoking status: Patient/guardian denies using tobacco. Screenin:35 Abuse screen: Denies threats or abuse. Nutritional screening: No deficits noted. ea Tuberculosis screening: No symptoms or risk factors identified. Fall Risk None identified. Assessment: 23:20 General: Appears uncomfortable, Behavior is calm, cooperative. Pain: Complains of pain ea in right upper quadrant and left upper quadrant Pain currently is 9 out of 10 on a pain scale. Quality of pain is described as aching. Neuro: Level of Consciousness is awake, alert, obeys commands, Oriented to person, place, time, situation. Cardiovascular: Heart tones present Patient's skin is warm and dry. Respiratory: Airway is patent Respiratory effort is even, unlabored, Respiratory pattern is regular, symmetrical, Breath sounds are clear bilaterally. GI: Bowel sounds present X 4 quads. Abd is soft X 4 quads Abdomen is tender to palpation in right upper quadrant and left upper quadrant. : No signs and/or symptoms were reported regarding the genitourinary system. EENT: No signs and/or symptoms were reported regarding the EENT system. Derm: Skin is dry, Skin is normal, Skin temperature is warm. 10/01 01:44 Reassessment: Patient and/or family updated on plan of care and expected duration. Pain bb level reassessed. Patient is alert, oriented x 3, equal unlabored respirations, skin warm/dry/pink. resting quietly, IV site patent, intact. 02:40 Reassessment: Pt resting with eyes closed, respirations even and unlabored, chest ea expansions even and symmetrical. No s/s of pain or discomfort noted at this time. 03:34 Reassessment: Patient is alert, oriented x 3, equal unlabored respirations, skin bb warm/dry/pink. IV site intact, no signs of distress noted. Vital Signs: 09/30 22:37 BP 231 / 150; Pulse 100; Resp 18; Temp 99.0; Pulse Ox 100% on R/A; Weight 74.84 kg; aa1 Height 6 ft. 1 in. (185.42 cm); Pain 9/10; 23:29 BP 230 / 153; Pulse 98; Resp 18; Pulse Ox 100% on R/A; mt 10/01 00:09 BP 221 / 148; Pulse 96; Resp 18; Pulse Ox 100% on R/A; mt 00:55 BP 194 / 124; Pulse 100; Resp 18 S; Pulse Ox 98% on R/A; Pain 0/10; ea 01:15 BP 186 / 122; Pulse 99; Resp 18; Pulse Ox 100% ; ea 01:45 BP 177 / 113; Pulse 120; Resp 20 S; Pulse Ox 100% on 8% Nebulizer Mask; bb 02:45 BP 165 / 95; Pulse 110; Resp 18; Pulse Ox 97% on R/A; Pain 0/10; ea 09/30 22:37 Body Mass Index 21.77 (74.84 kg, 185.42 cm) aa1 ED Course: 09/30 22:25 Patient arrived in ED. am2 22:25 Fredrick Lomeli DO is Private Physician. am2 22:36 Triage completed. aa1 22:37 Arm band placed on right wrist. Patient placed in an exam room, on a stretcher. aa1 22:43 Rittger, Roger, MD is Attending Physician. kdr 23:20 Patient has correct armband on for positive identification. Bed in low position. Call ea light in reach. Side rails up X 1. 23:20 Missed attempt(s): 20 gauge in left forearm. Bleeding controlled, band aid applied, ea catheter tip intact. 23:34 Raeann Worley, RN is Primary Nurse. ea 23:39 Abdomen In Process Unspecified. EDMS 23:58 Missed attempt(s): 22 gauge in right hand. Bleeding controlled, band aid applied, ea catheter tip intact. 10/01 00:09 Inserted saline lock: 22 gauge in right antecubital area, using aseptic technique. mt Blood collected. 00:50 Notified ED physician of a critical lab result(s). potassium 6.4, Co2 13, Creat 36.86, fc Hgb 7.8. 01:50 Alta Pace MD is Hospitalizing Provider. kdr 03:06 No provider procedures requiring assistance completed. Patient admitted, IV remains in ea place. Administered Medications: 09/30 23:20 Drug: cloNIDine 0.2 mg Route: PO; ea 10/01 01:15 Follow up: BP 186 / 122; Pulse 99 bpm; Resp 18 bpm; Pulse Ox 100% ea 00:00 Drug: Pepcid 20 mg Route: IVP; Site: right antecubital; ea 01:14 Follow up: Response: No adverse reaction ea 00:10 Drug: morphine 4 mg Route: IVP; Site: right antecubital; ea 01:00 Follow up: Response: Pain is decreased ea 00:10 Drug: Zofran 4 mg Route: IVP; Site: right antecubital; ea 01:14 Follow up: Response: No adverse reaction ea 00:21 Drug: NS 0.9% 250 ml Route: IV; Rate: bolus; Site: right antecubital; ea 03:11 Follow up: Response: No adverse reaction; IV Status: Completed infusion ea 03:31 Follow up: IV Intake: 250ml bb 01:10 Drug: Lisinopril 20 mg Route: PO; bb 03:09 Follow up: Response: No adverse reaction ea 03:09 Follow up: Response: Blood pressure is lowered ea 01:13 Drug: Albuterol 2.5 mg Route: Inhalation; bb 01:16 Drug: Insulin Regular Human 10 units {Co-Signature: aminta (Reaann Worley RN).} Route: IVP; bb Site: right antecubital; 03:08 Follow up: Response: No adverse reaction ea 01:16 Drug: D50W 50 ml Route: IVP; Site: right antecubital; bb 03:08 Follow up: Response: No adverse reaction ea 01:19 Drug: Sodium Bicarbonate 1 amp Route: IVP; Site: right antecubital; bb 03:08 Follow up: Response: No adverse reaction ea 01:30 Drug: Calcium Gluconate 1 grams Route: IVPB; Infused Over: 60 mins; Site: right bb antecubital; 02:30 Follow up: IV Intake: 100ml bb 03:10 Follow up: Response: No adverse reaction; IV Status: Completed infusion ea 01:33 Drug: Albuterol 2.5 mg Route: Inhalation; bb 01:39 Drug: Kayexalate 60 grams Route: PO; bb 03:08 Follow up: Response: No adverse reaction ea 01:44 Drug: Albuterol 2.5 mg Route: Inhalation; bb 03:09 Follow up: Response: No adverse reaction ea Intake: 02:30 IV: 100ml; Total: 100ml. bb 03:31 IV: 250ml; Total: 350ml. bb Outcome: 01:52 Decision to Hospitalize by Provider. kdr 02:00 Instructed on the need for admit. ea 03:26 Admitted to Tele accompanied by tech, via wheelchair, room 411, with chart, Report bb called to Rossy SAEED 03:26 Condition: improved 03:37 Patient left the ED. bb Signatures: Dispatcher [employer] Jayla Navarro RN RN [email or web address] Roger Chowdhury MD MD kdr Chretien, Felicia RN Stefany Lagos RN RN bb Moreno, Amanda am2 Thompson, Moriah mt Antunez, Elena, RN RN ea Elena Antunez RN ea
[2017-10-01] MEDS ORDERED: ACETAMINOPHEN 500 MG TAB PO PRN (02:32)
[2017-10-01] MEDS ORDERED: ONDANSETRON 4 MG/2 ML VIAL IV PRN (02:32)
[2017-10-01] MEDS ORDERED: MORPHINE 2 MG/ML SYR IV PRN (02:32)
[2017-10-01] MEDS: FUROSEMIDE 40 MG/4 ML VIAL IV SCH ×4 (04:05→20:12)
[2017-10-01 05:48] LABS: Absolute Lymphocytes (CBC) 0.5 K/uL (0.7-4.9); Absolute Monocytes 0.5 K/uL (0.1-1.3); Absolute Neutrophil 1.9 K/uL (1.8-8.0); Basophils % 1.1 % (0-1.3); Eosinophils % 4.3 % (0-4.4); Hematocrit 23.3 % (39.6-49.0); MCH 25.9 pg (27.0-35.0); MCV 79.1 fL (80-100); MPV 8.1 fL (7.6-11.3); Monocytes % 15.9 % (3.3-12.3); RBC Red Blood Cell Count 2.94 M/uL (4.33-5.43)
--- NOTE | 2017-10-01 07:01 | RAD REPORT ---
EXAM DESCRIPTION: CT - Abdomen Pelvis Wo Contrast - 10/01/2017 4:42 am CLINICAL HISTORY: Abdominal pain, nausea and vomiting ; lower extremity swelling, dialysis patient o verdue for dialysis A preliminary written report was provided at the time of the study, and the report was reviewed prio r to final dictation. COMPARISON: CT study August 05 TECHNIQUE: Axial [address] imaging of the abdomen and pelvis was performed without IV contrast. No IV contrast was given because of allergy, abnormal renal function, patient refusal or physician re quest. No oral contrast administered. All CT scans are performed using dose optimization technique as appropriate and may include automated exposure control or mA/KV adjustment according to patient size. FINDINGS: Lung base pneumonia changes have cleared since July examination. No acute lung base fi nding. Heart size is upper normal. No pericardial effusion. The liver, spleen and pancreas show no suspicious findings on non-contrast imaging. Gallbladder and b iliary tree are also without suspicious finding. Gallstones can be occult. No hydronephrosis or suspicious renal mass. Right kidney is incompletely rotated and positioned more in the anterior mid right abdomen. No significant adrenal finding. Isodense renal masses and pyelonep hritis cannot be excluded in the absence of IV contrast. Urinary bladder is mostly contracted. No dilated bowel loops or bowel wall thickening. Minimal hyperdensity within the colon is presumed to be contrast from a remote study or an ingested medication. Patient has scattered diverticulosis but no specific finding for diverticulitis. No hernia, mass or bulky lymphadenopathy. Mild to moderate fluid retention in the peritoneal and subcutaneous fatty tissues. No suspicious bony findings. IMPRESSION: Mild to moderate ascites/anasarca pattern due to delayed dialysis. No bowel obstruction or surgically emergent finding seen. Full assessment is limited is the absence of IV contrast.
[2017-10-01 07:05] LABS: Albumin 3.5 g/dL (3.2-5.5); Bilirubin Total 0.9 mg/dL (0.3-1.2); Potassium 4.1 mEq/L (3.6-5.0); Protein, Total 6.7 g/dL (6.0-8.3)
--- NOTE | 2017-10-01 07:06 | P.HP ---
Certification for Inpatient Patient admitted to: Inpatient With expected LOS: >2 Midnights Patient will require the following post-hospital care: None Practitioner: I am a practitioner with admitting privileges, knowledge of patient current condition, hospital course, and medical plan of care. Services: Services provided to patient in accordance with Admission requirements found in Title 42 Section 412.3 of the Code of Federal Regulations Patient History Date of Service: 09/30/17 Reason for admission: Hyperkalemia and metabolic acidosis History of Present Illness: Patient is a 42-year-old gentleman who came into the hospital with shortness of breath. Patient was worked up in the emergency room and was found to be hyperkalemic with a metabolic acidosis. Patient has a history of end-stage renal disease and apparently was supposed to have a chair time on his last admission. For whatever reason this did not work out. Patient has not had hemodialysis for 3 weeks. Patient came into the hospital short of breath and was found to have a metabolic acidosis and multiple electrolyte abnormalities. Patient will be admitted to the hospital for further evaluation and treatment with hemodialysis. Patient is high risk of having morbidity or mortality if he is not hemodialyzed regularly. I did explain this to him. He is hoping he can get a chair time prior to discharge. Allergies No Known Allergies Allergy (Verified 08/06/17 01:36) Home Medications: Calcitrol [Rocaltrol*] 0.5 mcg PO DAILY #30 cap 08/12/17 Cholecalciferol (Vitamin D3) [Vitamin D 5,000 IU Cap*] 5,000 unit PO DAILY #30 cap 08/12/17 Hydralazine HCl [Apresoline] 100 mg PO TID #90 tablet 08/12/17 Nifedipine [Procardia Xl] 90 mg PO BID #60 tab.er.24 08/12/17 Ramipril [Altace] 10 mg PO DAILY #30 capsule 08/12/17 Sevelamer Carbonate [Renvela*] 1,600 mg PO TIDWM #90 tablet 08/12/17 - Past Medical/Surgical History Has patient received pneumonia vaccine in the past: No Diabetic: No -: Hypertension -: End-stage renal disease -: Diastolic CHF -: Anemia of chronic disease -: Thrombocytopenia -: Left foot sx Psychosocial/ Personal History: The patient is single. He has 9 children. He does not work. He recently got out of [facility] May of 2016. - Family History Mother Medical History: Heart disease, Hypertension, Kidney disease - Social History Smoking Status: Never smoker Alcohol use: Yes CD- Drugs: No Caffeine use: No Place of Residence: Home Review of Systems 10-point ROS is otherwise unremarkable Physical Examination - Vital Signs Temperature: 98.0 F Blood Pressure: 156/90 Pulse: 112 Respirations: 20 Pulse Ox (%): 96 - Physical Exam General: Alert, In no apparent distress, Oriented x3 HEENT: Atraumatic, PERRLA, Mucous membr. moist/pink, EOMI, Sclerae nonicteric Neck: Supple, 2+ carotid pulse no bruit, No LAD, Without JVD or thyroid abnormality Respiratory: Clear to auscultation bilaterally, Normal air movement Cardiovascular: Regular rate/rhythm, Normal S1 S2, No murmurs Gastrointestinal: Normal bowel sounds, Soft and benign, Non-distended, No tenderness Musculoskeletal: No clubbing, No swelling, No tenderness Integumentary: No rashes Neurological: Normal gait, Normal speech, Normal strength at 5/5 x4 extr, Normal tone, Sensation intact, Cranial nerves 3-12 intact, Normal affect Lymphatics: No axilla or inguinal lymphadenopathy - Studies Laboratory Data (last 24 hrs) 09/30/17 23:59: Creatinine Cancelled 09/30/17 23:59: WBC 3.7 L, Hgb 7.8 L*, Hct 23.9 L, Plt Count 105 L 09/30/17 23:59: Sodium 133 L, Potassium 6.4 H*, BUN 164 H, Creatinine 36.86 H*, Glucose 85, Total Bilirubin 0.9, AST 21, ALT 11, Alkaline Phosphatase 33 L, Amylase 197 H, Lipase 44 Assessment & Plan - Problems (Diagnosis) (1) End stage renal disease Current Visit: Yes Status: Acute (2) Hyperkalemia Current Visit: Yes Status: Acute (3) Metabolic acidosis Current Visit: Yes Status: Acute (4) Anemia Current Visit: Yes Status: Acute (5) Malignant hypertension Onset Date: 08/07/17 Current Visit: No Status: Acute - Plan Plan: 1. Nephrology consultation for hemodialysis 2. IV bicarb along with 1 amp of D 50 and insulin to keep potassium level down 3. IV Lasix high dosage 4. Monitor electrolytes 5. Bicarb supplementation as well as additional renal medications to keep electrolytes stable 6. GI and DVT prophylaxis Discharge Plan: Home Plan to discharge in: 24 Hours - Advance Directives Does patient have a Living Will: No Does patient have a Durable POA for Healthcare: No - Code Status/Comfort Care Code Status Assessed: Yes Code Status: Full Code Critical Care: No Time Spent Managing PTS Care (In Minutes): 50
[2017-10-01] MEDS ORDERED: Morphine 2 MG/2 ML SYR IV PRN (07:40)
[2017-10-01 08:12] LABS: Blood Morphology Comment NOT SEEN (NOT SEEN); Platelet Estimate ADEQ; Urine White Blood Cell Casts OK
[2017-10-01] MEDS ORDERED: MANNITOL 25% 12.5 GM/50 ML VIAL IV PRN (09:12)
[2017-10-01] MEDS ORDERED: NA CHLORIDE 0.9% 1,000 ML IV PRN (09:12)
[2017-10-01] MEDS: METOPROLOL TAR 50 MG TAB PO SCH ×2 (09:58→20:13)
[2017-10-01] MEDS: NIFEDIPINE XL 90 MG TABLET PO SCH ×2 (10:00→20:13)
[2017-10-01] MEDS ORDERED: ALBUMIN HUMAN 25% 50 ML IV SCH (10:00)
--- NOTE | 2017-10-01 11:24 | EKG ---
Test Date: 2017-10-01 Test Time: 09:31:01 Plastic Tool Maker: NATALIA MEASUREMENT RESULTS: Intervals: Rate: 158 MD: QRSD: 98 QT: 314 QTc: 509 [place]: P: MD: QRS: 25 T: 127 INTERPRETIVE STATEMENTS: Atrial fibrillation with rapid ventricular response with premature ventricular or aberrantly conducted complexes ST & T wave abnormality, consider lateral ischemia or digitalis effect Abnormal ECG Compared to ECG 09/12/2017 17:20:46 Ventricular premature complex(es) now present ST (T wave) deviation now present Sinus rhythm no longer present Left ventricular hypertrophy no longer present T-wave abnormality no longer present Prolonged QT interval no longer present Possible ischemia still present Electronically Signed On 10-01-17 11:23:33 CDT by Loki Mitchell
[2017-10-01] MEDS: EPOETIN ALFA 10,000 UNIT/ML VIAL IV SCH (12:56)
[2017-10-01] MEDS: HYDRALAZINE HCL 25 MG TABLET PO SCH ×2 (13:47→20:13)
[2017-10-01] MEDS: SEVELAMER CARBONATE 800 MG TABLET PO SCH ×2 (13:47→16:48)
--- NOTE | 2017-10-01 15:35 | P.PN ---
Subjective Date of Service: 10/01/17 Chief Complaint: Hyperkalemia and metabolic acidosis Patient seen and examined at bedside with RN. Chart reviewed. Case discussed with nephrology. Currently patient is in AFib with RVR. Has home medication metoprolol 100 mg b.i.d.. Is given 1st dose now. We will get a stat EKG and nephrology will be doing stat dialysis for the patient today. Review of Systems General: As per HPI Physical Examination - Vital Signs Temperature: 98.0 F Blood Pressure: 170/96 Pulse: 82 Respirations: 18 Pulse Ox (%): 96 - Physical Exam General: Alert, In no apparent distress HEENT: Atraumatic, PERRLA, EOMI Neck: Supple, JVD not distended Respiratory: Clear to auscultation bilaterally, Normal air movement Cardiovascular: Normal S1 S2, Irregular heart rate/rhythm Gastrointestinal: Normal bowel sounds, No tenderness Musculoskeletal: No tenderness Integumentary: No rashes Neurological: Normal speech, Normal tone, Normal affect Lymphatics: No axilla or inguinal lymphadenopathy - Studies Laboratory Data (last 24 hrs) 09/30/17 23:59: Creatinine Cancelled 09/30/17 23:59: WBC 3.7 L, Hgb 7.8 L*, Hct 23.9 L, Plt Count 105 L 09/30/17 23:59: Sodium 133 L, Potassium 6.4 H*, BUN 164 H, Creatinine 36.86 H*, Glucose 85, Total Bilirubin 0.9, AST 21, ALT 11, Alkaline Phosphatase 33 L, Amylase 197 H, Lipase 44 Medications List Reviewed: Yes Assessment & Plan - Problems (Diagnosis) (1) Afib Current Visit: Yes Status: Acute Plan: New Onset AFib with RVR. Could be secondary to Electrolyte abnormality due to Missed dialysis -Currently on Started on metoprolol 100mg BID -Will get ECHO and Start on Anticoagulation if continues to be in Afib Qualifiers: Atrial fibrillation type: unspecified Qualified Code(s): I48.91 - Unspecified atrial fibrillation (2) End stage renal disease Onset Date: 10/01/17 Current Visit: Yes Status: Chronic Plan: On HD. Currently Unfunded to setup dialysis -Pt will need to be setup for dialysis outpt and will need to f.u with Nephrology -BUN/CR elevated -pt to get dialysis today and jose here in the hospital (3) CHF (congestive heart failure) Onset Date: 09/13/17 Current Visit: No Status: Chronic Qualifiers: Heart failure type: diastolic Heart failure chronicity: chronic Qualified Code(s): I50.32 - Chronic diastolic (congestive) heart failure (4) Pulmonary hypertension Onset Date: 09/13/17 Current Visit: No Status: Chronic Discharge Plan: Home Plan to discharge in: 48 Hours - Code Status/Comfort Care Code Status Assessed: Yes Critical Care: No
[2017-10-01 21:47] LABS: Urine Appearance CLOUDY; Urine Bilirubin NEGATIVE (NEG); Urine Blood NEGATIVE (NEG); Urine Color YELLOW; Urine Glucose NEGATIVE (NEG); Urine Protein 2+ (NEG); Urine Specific Gravity 1.015 (1.005-1.030); Urine Urobilinogen 0.2 mg/dL (0.2-1.0); Urine pH 5.5 (5.0-7.0)
[2017-10-01 22:33] LABS: Urine Amorphous Sediment 1+ /HPF (NONE SEEN); Urine Bacteria <20 /HPF (NONE SEEN); Urine Culture Reflex Order NOT NEEDED; Urine RBC <5 /HPF (NONE SEEN)
--- NOTE | 2017-10-01 23:34 | P.CNS ---
Date of Consult: 10/01/17 Reason for Consult: ESRD Requesting Physician: Cathy Apple Chief Complaint: Hyperkalemia and metabolic acidosis History of Present Illness: Patient is a 42-year-old gentleman who came into the hospital with shortness of breath. Patient was worked up in the emergency room and was found to be hyperkalemic with a metabolic acidosis. Patient has a history of end-stage renal disease and apparently was supposed to have a chair time on his last admission. For whatever reason this did not work out. Patient has not had hemodialysis for 3 weeks. Patient came into the hospital short of breath and was found to have a metabolic acidosis and multiple electrolyte abnormalities. Patient will be admitted to the hospital for further evaluation and treatment with hemodialysis. Patient is high risk of having morbidity or mortality if he is not hemodialyzed regularly. I did explain this to him. He is hoping he can get a chair time prior to discharge. 01:13 This 42 yrs old Black Male presents to ER via Ambulatory with complaints of Abdominal kdr Pain, Feet Swelling. 01:13 The patient states that she has not been to dialysis for about three weeks and has been kdr having worsening abdominal pain. Onset: The symptoms/episode began/ occurred gradually, 3 week(s) ago. Severity of symptoms: At their worst the symptoms were mild moderate just prior to arrival, in the emergency department the symptoms are unchanged. It is unknown whether or not the patient has had similar symptoms in the past. The patient has not recently seen a physician. Allergies No Known Allergies Allergy (Verified 08/06/17 01:36) Home medications list reviewed: Yes Home Medications: Calcitrol [Rocaltrol*] 0.5 mcg PO DAILY #30 cap 08/12/17 Cholecalciferol (Vitamin D3) [Vitamin D 5,000 IU Cap*] 5,000 unit PO DAILY #30 cap 08/12/17 Hydralazine HCl [Apresoline] 100 mg PO TID #90 tablet 08/12/17 Nifedipine [Procardia Xl] 90 mg PO BID #60 tab.er.24 08/12/17 Ramipril [Altace] 10 mg PO DAILY #30 capsule 08/12/17 Sevelamer Carbonate [Renvela*] 1,600 mg PO TIDWM #90 tablet 08/12/17 - Past Medical/Surgical History Diabetic: No -: Hypertension -: End-stage renal disease -: Diastolic CHF -: Anemia of chronic disease -: Thrombocytopenia -: Left foot sx Psychosocial/ Personal History: The patient is single. He has 9 children. He does not work. [facility] out of [facility] of [facility]. - Family History Mother Medical History: Heart disease, Hypertension, Kidney disease - Social History Alcohol use: Yes CD- Drugs: No Caffeine use: No Place of Residence: Home Review of Systems 10-point ROS is otherwise unremarkable General: Weakness, Malaise Physical Examination Temp Pulse Resp BP Pulse Ox 98.5 F 95 H 17 140/86 95 10/01/17 20:00 10/01/17 20:13 10/01/17 20:00 10/01/17 20:13 10/01/17 20:00 General: In no apparent distress, Oriented x3, Cooperative HEENT: Atraumatic, Mucous membr. moist/pink Neck: Supple Respiratory: Clear to auscultation bilaterally Cardiovascular: No edema, Regular rate/rhythm, No rubs Gastrointestinal: Soft and benign, Non-distended Musculoskeletal: No clubbing, No contractures Integumentary: No rashes, No cyanosis Neurological: Normal speech Laboratory Data (last 24 hrs) 09/30/17 23:59: Creatinine Cancelled 09/30/17 23:59: WBC 3.7 L, Hgb 7.8 L*, Hct 23.9 L, Plt Count 105 L 09/30/17 23:59: Sodium 133 L, Potassium 6.4 H*, BUN 164 H, Creatinine 36.86 H*, Glucose 85, Total Bilirubin 0.9, AST 21, ALT 11, Alkaline Phosphatase 33 L, Amylase 197 H, Lipase 44 Imagings Data: Reason for Exam: ABD PAIN Report Status: Signed EXAM DESCRIPTION: CT - Abdomen Pelvis Wo Contrast - 10/01/2017 4:42 am CLINICAL HISTORY: Abdominal pain, nausea and vomiting ; lower extremity swelling, dialysis patient overdue for dialysis A preliminary written report was provided at the time of the study, and the report was reviewed prior to final dictation. COMPARISON: CT study August 05 TECHNIQUE: Axial [address] imaging of the abdomen and pelvis was performed without IV contrast. No IV contrast was given because of allergy, abnormal renal function, patient refusal or physician request. No oral contrast administered. All CT scans are performed using dose optimization technique as appropriate and may include automated exposure control or mA/KV adjustment according to patient size. FINDINGS: Lung base pneumonia changes have cleared since July examination. No acute lung base finding. Heart size is upper normal. No pericardial effusion. The liver, spleen and pancreas show no suspicious findings on non-contrast imaging. Gallbladder and biliary tree are also without suspicious finding. Gallstones can be occult. No hydronephrosis or suspicious renal mass. Right kidney is incompletely rotated and positioned more in the anterior mid right abdomen. No significant adrenal finding. Isodense renal masses and pyelonephritis cannot be excluded in the absence of IV contrast. Urinary bladder is mostly contracted. No dilated bowel loops or bowel wall thickening. Minimal hyperdensity within the colon is presumed to be contrast from a remote study or an ingested medication. Patient has scattered diverticulosis but no specific finding for diverticulitis. No hernia, mass or bulky lymphadenopathy. Mild to moderate fluid retention in the peritoneal and subcutaneous fatty tissues. No suspicious bony findings. IMPRESSION: Mild to moderate ascites/anasarca pattern due to delayed dialysis. No bowel obstruction or surgically emergent finding seen. Full assessment is limited is the absence of IV contrast. Conclusions/Impression: A/ ESRD on HD. HTN with CKD. Diastolic CHF, chronic. Anemia in CKD. Acidosis. P/ Continue current POC and Medications. Arrange for acute HD today. Next HD tomorrow. Restart home medications as indicated. Give Epo. AM labs. Daily weight. No NSAIDs. Thank you kindly for the consultation.
[2017-10-02 04:21] LABS: Absolute Lymphocytes (CBC) 0.4 K/uL (0.7-4.9); Absolute Monocytes 0.4 K/uL (0.1-1.3); Absolute Neutrophil 1.8 K/uL (1.8-8.0); Eosinophils % 5.6 % (0-4.4); Lymphocytes % 14.2 % (15.3-44.8); MCH 25.8 pg (27.0-35.0); MCV 78.8 fL (80-100); MPV 7.7 fL (7.6-11.3); Monocytes % 15.6 % (3.3-12.3); RBC Red Blood Cell Count 3.04 M/uL (4.33-5.43)
[2017-10-02 04:34] LABS: Albumin 3.5 g/dL (3.2-5.5); Bilirubin Total 0.7 mg/dL (0.3-1.2); Potassium 3.7 mEq/L (3.6-5.0); Protein, Total 6.2 g/dL (6.0-8.3)
[2017-10-02 06:48] VITALS: BMI 20.4
[2017-10-02] MEDS: SEVELAMER CARBONATE 800 MG TABLET PO SCH ×2 (08:00→12:57)
[2017-10-02 08:51] VITALS: TEMP 98.8
[2017-10-02] MEDS: FUROSEMIDE 40 MG/4 ML VIAL IV SCH ×2 (09:00→12:58)
[2017-10-02] MEDS ORDERED: VITAMIN D 5,000 UNIT CAP PO SCH (09:00)
[2017-10-02] MEDS ORDERED: CALCITROL 0.25 MCG CAP PO SCH (09:00)
[2017-10-02] MEDS ORDERED: RAMIPRIL 5 MG CAP PO SCH (09:00)
[2017-10-02] MEDS: HYDRALAZINE HCL 25 MG TABLET PO SCH ×2 (09:00→12:59)
[2017-10-02 09:51] VITALS: O2SAT 96
[2017-10-02] MEDS: EPOETIN ALFA 10,000 UNIT/ML VIAL IV SCH (09:52)
--- NOTE | 2017-10-02 10:32 | P.PN ---
Subjective Date of Service: 10/02/17 Chief Complaint: Hyperkalemia and metabolic acidosis Patient seen and examined at bedside with RN. Chart reviewed. Case discussed with nephrology. Currently in Dialysis. Sitting on the chair comfortably. No other complains to offer. Review of Systems General: As per HPI Physical Examination - Vital Signs Temperature: 98.8 F Blood Pressure: 156/92 Pulse: 76 Respirations: 18 Pulse Ox (%): 96 - Physical Exam General: Alert, In no apparent distress, Oriented x3 HEENT: Atraumatic, PERRLA, EOMI Neck: Supple, JVD not distended Respiratory: Clear to auscultation bilaterally, Normal air movement Cardiovascular: Regular rate/rhythm, Normal S1 S2 Gastrointestinal: Normal bowel sounds, No tenderness Musculoskeletal: No tenderness Integumentary: No rashes Neurological: Normal speech, Normal tone, Normal affect Lymphatics: No axilla or inguinal lymphadenopathy - Studies Medications List Reviewed: Yes Assessment & Plan - Problems (Diagnosis) (1) Afib Current Visit: Yes Status: Acute Plan: Prosxymal AFib with RVR. Could be secondary to Electrolyte abnormality due to Missed dialysis. Now in sinus rhythm -Currently on Started on metoprolol 100mg BID -ECHO in jul with EF of >50% Qualifiers: Atrial fibrillation type: paroxysmal Qualified Code(s): I48.0 - Paroxysmal atrial fibrillation (2) End stage renal disease Onset Date: 10/01/17 Current Visit: Yes Status: Chronic Plan: On HD. Currently Unfunded to setup dialysis -Pt will need to be setup for dialysis outpt and will need to f.u with Nephrology -BUN/CR elevated -pt to get dialysis today here in the hospital (3) CHF (congestive heart failure) Onset Date: 09/13/17 Current Visit: No Status: Chronic Qualifiers: Heart failure type: diastolic Heart failure chronicity: chronic Qualified Code(s): I50.32 - Chronic diastolic (congestive) heart failure (4) Pulmonary hypertension Onset Date: 09/13/17 Current Visit: No Status: Chronic
[2017-10-02] MEDS: METOPROLOL TAR 50 MG TAB PO SCH (12:58)
[2017-10-02 12:59] VITALS: BP 144/82
[2017-10-02] MEDS: NIFEDIPINE XL 90 MG TABLET PO SCH (12:59)
--- NOTE | 2017-10-02 13:35 | P.DS ---
Admission Date: 10/01/17 Discharge Date: 10/02/17 Disposition: ROUTINE DISCHARGE Discharge Condition: GOOD Reason for Admission: Hyperkalemia and metabolic acidosis Consultations: Nephrology Procedures: HD - Problems (1) Afib Current Visit: Yes Status: Resolved Qualifiers: Atrial fibrillation type: paroxysmal Qualified Code(s): I48.0 - Paroxysmal atrial fibrillation (2) End stage renal disease Onset Date: 10/01/17 Current Visit: Yes Status: Chronic (3) CHF (congestive heart failure) Onset Date: 09/13/17 Current Visit: No Status: Chronic Qualifiers: Heart failure type: diastolic Heart failure chronicity: chronic Qualified Code(s): I50.32 - Chronic diastolic (congestive) heart failure (4) Pulmonary hypertension Onset Date: 09/13/17 Current Visit: No Status: Chronic Brief History of Present Illness: See HPI Hospital Course: Overall during the hospital stay patient remained stable. The patient was initially admitted to the hospital for Volume overload due to Missed dialysis. Dr. Sanchez from nephrology was consulted who saw the patient here in the hospital and recommended that pt get Dialysis here in the hospital for 2 days. Pt received HD for 2 days and his symptoms improved. The patient was then seen by social workers and case management, who assisted the patient in attempting to set up dialysis chair. However, due to patient's previous incarceration and no work history pt is not regularly accepted for medicaid. The patient will have a hearing soon for disability evaluation and has also applied for [facility]. For the meantime pt wants to be discharged home and will be a floater in the ER. He will be coming to the ER for his HD. The patient was discharged home in fair condition. Vital Signs/Physical Exam: Temp Pulse Resp BP Pulse Ox 98.8 F 98 H 18 144/82 H 96 10/02/17 10:32 10/02/17 12:59 10/02/17 10:32 10/02/17 12:59 10/02/17 10:32 General: Alert, In no apparent distress HEENT: Atraumatic, PERRLA, EOMI Neck: Supple, JVD not distended Respiratory: Clear to auscultation bilaterally, Normal air movement Cardiovascular: Regular rate/rhythm, Normal S1 S2 Gastrointestinal: Normal bowel sounds, No tenderness Musculoskeletal: No tenderness Integumentary: No rashes Neurological: Normal speech, Normal tone, Normal affect Lymphatics: No axilla or inguinal lymphadenopathy Laboratory Data at Discharge: WBC 2.8 K/uL (4.3-10.9) L 10/02/17 03:43 Hgb 7.8 g/dL (13.6-17.9) L* 10/02/17 03:43 Hct 24.0 % (39.6-49.0) L 10/02/17 03:43 Plt Count 118 K/uL (152-406) L 10/02/17 03:43 Sodium 138 mEq/L (135-145) 10/02/17 03:43 Potassium 3.7 mEq/L (3.6-5.0) 10/02/17 03:43 BUN 77 mg/dL (6-20) H D 10/02/17 03:43 Creatinine 20.39 mg/dL (0.61-1.24) H* D 10/02/17 03:43 Glucose 111 mg/dL (65-120) 10/02/17 03:43 Total Bilirubin 0.7 mg/dL (0.3-1.2) 10/02/17 03:43 AST 18 IU/L (10-42) 10/02/17 03:43 ALT 7 IU/L (10-60) L 10/02/17 03:43 Alkaline Phosphatase 31 IU/L (42-121) L 10/02/17 03:43 Amylase 197 U/L (28-100) H 09/30/17 23:59 Lipase 44 U/L (22-51) 09/30/17 23:59 Home Medications: Calcitrol [Rocaltrol*] 0.5 mcg PO DAILY #30 cap 08/12/17 Cholecalciferol (Vitamin D3) [Vitamin D 5,000 IU Cap*] 5,000 unit PO DAILY #30 cap 08/12/17 Hydralazine HCl [Apresoline] 100 mg PO TID #90 tablet 08/12/17 Nifedipine [Procardia Xl] 90 mg PO BID #60 tab.er.24 08/12/17 Ramipril [Altace] 10 mg PO DAILY #30 capsule 08/12/17 Sevelamer Carbonate [Renvela*] 1,600 mg PO TIDWM #90 tablet 08/12/17 Furosemide [Lasix] 20 mg PO BIDL #60 tab 10/02/17 Metoprolol Tartrate [Lopressor*] 100 mg PO BID #60 tab 10/02/17 New Medications: Furosemide [Lasix] 20 mg PO BIDL #60 tab Metoprolol Tartrate [Lopressor*] 100 mg PO BID #60 tab Patient Discharge Instructions: Please f/u with Nephrology in 1 to 2 week post discharge. New medication. Metoprolol 100mg BID. Lasix 20mg BID daily. You will need to come to the ER for your HD Diet: Regular Activity: Ad lisa Followup: Fredrick Lomeli DO [Primary Care Provider] - 1-2 Weeks (please diallo the office to make an appointment in 1-2 weeks. )
== END 2017-10-02 14:17 | disposition home or self-care (01) | DRG 291 ==
LOC: ER 22:24 → ERHOLD 10-01 01:48 → 4TH 10-01 03:18
PROVIDERS: ADMIT Hospitalist; ATTEND Family Medicine
PROC: 5A1D70Z Performance of Urinary Filtration, Intermittent, Less than 6 Hours Per Day (ICD-10-PCS; principal; 2017-10-01)
PROC: 5A1D70Z Performance of Urinary Filtration, Intermittent, Less than 6 Hours Per Day (ICD-10-PCS; 2017-10-02)
DX: I13.2 Hypertensive heart and chronic kidney disease with heart failure and with stage 5 chronic kidney disease, or end stage renal disease (principal); N18.6 End stage renal disease; I50.30 Unspecified diastolic (congestive) heart failure; R18.8 Other ascites; E87.2 Acidosis; E87.5 Hyperkalemia; D63.1 Anemia in chronic kidney disease; I27.20 Pulmonary hypertension, unspecified; I48.0 Paroxysmal atrial fibrillation; Z99.2 Dependence on renal dialysis
CPT/HCPCS: 36415; 74176; 80048; 80053; 80076; 81001; 82150; 83690; 85025; 90935; 93005; 96365; 96366; 96375; 99285; G0257; J0610; J2270; J2405; Q4081

== ENCOUNTER 2017-10-13 07:10 | Inpatient (IN) | payer OTHER, SELFPAY ==
[2017-10-13] MEDS ORDERED: FUROSEMIDE 20 MG/ 2ML VIAL ONE (07:39)
[2017-10-13] MEDS ORDERED: NITROGLYCERIN 1 GM PKT TD ONE (07:39)
[2017-10-13] MEDS ORDERED: FUROSEMIDE 40 MG/4 ML VIAL ONE (07:39)
[2017-10-13 07:48] LABS: Absolute Lymphocytes (CBC) 0.6 K/uL (0.7-4.9); Absolute Monocytes 0.5 K/uL (0.1-1.3); Absolute Neutrophil 3.9 K/uL (1.8-8.0); Basophils % 1.2 % (0-1.3); Eosinophils % 1.7 % (0-4.4); Hematocrit 23.5 % (39.6-49.0); MCH 25.9 pg (27.0-35.0); MCV 82.2 fL (80-100); MPV 7.2 fL (7.6-11.3); Monocytes % 10.2 % (3.3-12.3); RBC Red Blood Cell Count 2.86 M/uL (4.33-5.43)
[2017-10-13 08:14] LABS: Potassium 5.4 mEq/L (3.6-5.0)
[2017-10-13] MEDS ORDERED: D50W 25 GM/50 ML SYRINGE IV ONE (08:46)
[2017-10-13] MEDS ORDERED: INSULIN -REGULAR HUMAN 50 UNIT/0.5 ML ML ONE (08:46)
[2017-10-13] MEDS ORDERED: HYDRALAZINE HCL 20 MG/ML VIAL ONE (08:46)
--- NOTE | 2017-10-13 08:52 | ER ---
Nurse's Notes [facility] Emergency Department Name: Jermaine Rivera Age: 42 yrs Sex: Male : 1975 Arrival Date: 10/13/2017 Time: 07:13 Bed 7 Private MD: Diagnosis: Pulmonary edema;End stage renal disease;Hyperkalemia;Acidosis Presentation: 10/13 07:23 Presenting complaint: Patient states: shortness of breath, abd pain and leg swelling x ss 3 weeks. Pt reports last dialysis session was 3 weeks ago. Transition of care: patient was not received from another setting of care. Onset of symptoms is unknown. Initial Sepsis Screen: Does the patient meet any 2 criteria? RR > 20 per min. HR > 90 bpm. Does the patient have a suspected source of infection? No. Patient's initial sepsis screen is negative. Care prior to arrival: None. 07:23 Method Of Arrival: Ambulatory ss 07:23 Acuity: FERNANDA 2 ss Triage Assessment: 07:25 General: Behavior is calm, cooperative. Respiratory: the patient has moderate shortness aa5 of breath. Respiratory: Respiratory pattern is tachypnea. 07:25 General: Appears comfortable. aa5 Historical: - Allergies: 07:25 No Known Allergies; ss - PMHx: 07:25 Dialysis; Hypertension; Renal Disease; ss - Immunization history:: Adult Immunizations up to date. - Social history:: Smoking status: Patient/guardian denies using tobacco. - Family history:: not pertinent. - Hospitalizations: : No recent hospitalization is reported. Screenin:54 Abuse screen: Denies threats or abuse. Nutritional screening: No deficits noted. aa5 Tuberculosis screening: No symptoms or risk factors identified. Fall Risk IV access (20 points). Total Ceja Fall Scale indicates No Risk (0-24 pts). Assessment: 07:25 General: Appears uncomfortable. Pain: Complains of pain in right upper quadrant, left aa5 upper quadrant, right lower quadrant and left lower quadrant Pain does not radiate. Pain currently is 8 out of 10 on a pain scale. Quality of pain is described as pressure, Pain began 2-3 days ago. Is continuous. Neuro: Level of Consciousness is awake, alert, obeys commands, Oriented to person, place, time, situation. Cardiovascular: Heart tones S1 S2 present Dialysis catheter noted to right upper chest . Edema 2+ pitting edema noted to frank lower extremities Rhythm is sinus tachycardia. Respiratory: Reports shortness of breath cough that is productive, since yesterday Airway is patent Respiratory effort is even, unlabored, Respiratory pattern is tachypnea Breath sounds are clear in right upper lobe, left upper lobe, right middle lobe, left lower lobe, right lower lobe, left posterior upper lobe and right posterior upper lobe Breath sounds with crackles in left posterior lower lobe, right posterior middle lobe and right posterior lower lobe. GI: Abdomen is flat, non-distended, Bowel sounds present X 4 quads. Abd is soft and non tender X 4 quads. Patient currently denies nausea, vomiting. : No signs and/or symptoms were reported regarding the genitourinary system. EENT: No signs and/or symptoms were reported regarding the EENT system. Derm: Skin is dry, Skin is normal, Skin temperature is warm. Musculoskeletal: Range of motion: intact in all extremities. 07:25 Reassessment: Pt states "the last time I had dialysis was in the hospital and I am aa5 still trying to get outpatient dialysis set up due to insurance problems" . 08:30 Reassessment: Patient and/or family updated on plan of care and expected duration. Pain aa5 level reassessed. Neuro: Level of Consciousness is awake, alert, obeys commands, Oriented to person, place, time, situation. Respiratory: Airway is patent Respiratory effort is even, unlabored, Respiratory pattern is tachypnea. Derm: Skin is dry, Skin is normal, Skin temperature is warm. 09:14 Reassessment: Patient and/or family updated on plan of care and expected duration. Pain aa5 level reassessed. Pt reports SOB has improved, pt currently denies abd pain. Neuro: Level of Consciousness is awake, alert, obeys commands, Oriented to person, place, time, situation. Cardiovascular: Rhythm is sinus rhythm. Respiratory: Airway is patent Respiratory effort is even, unlabored, Respiratory pattern is tachypnea. Derm: Skin is dry, Skin is normal, Skin temperature is warm. 10:15 Reassessment: Patient and/or family updated on plan of care and expected duration. Pain aa5 level reassessed. Patient denies pain at this time. Pt resting in bed with eyes closed, respirations even and unlabored. Skin is normal/warm/dry . 11:15 Reassessment: Pt continues to rest in bed with eyes closed, respirations even and aa5 unlabored. . Vital Signs: 07:25 BP 235 / 168; Pulse 112; Resp 34; Pulse Ox 92% on R/A; Weight 81.65 kg (R); Height 6 ss ft. 1 in. (185.42 cm); 07:27 Temp 97.8(O); aa5 07:35 BP 222 / 161; Pulse 106; Resp 30 S; Pulse Ox 95% on 2 lpm NC; aa5 07:50 BP 215 / 155; Pulse 105; Resp 30 S; Pulse Ox 97% on 2 lpm NC; aa5 08:00 BP 217 / 155; Pulse 105; Resp 28; Pulse Ox 97% on 2 lpm NC; aa5 08:11 BP 213 / 154; Pulse 101; Resp 28 S; Pulse Ox 96% on 2 lpm NC; aa5 08:30 BP 210 / 151; Pulse 98; Resp 28 S; Pulse Ox 97% on 2 lpm NC; aa5 08:50 BP 204 / 145; Pulse 105; Resp 26 S; Pulse Ox 96% on 2 lpm NC; Pain 0/10; aa5 09:05 BP 204 / 138; Pulse 99; Resp 28 S; Pulse Ox 96% on 2 lpm NC; aa5 09:53 BP 198 / 142; Pulse 105; Resp 26 S; Pulse Ox 96% on 2 lpm NC; aa5 10:19 BP 180 / 129; Pulse 108; Resp 24 S; Pulse Ox 96% on 2 lpm NC; aa5 11:20 BP 190 / 128; Pulse 105; Resp 24 S; Temp 98.0(O); Pulse Ox 96% on 2 lpm NC; Pain 0/10; aa5 07:25 Body Mass Index 23.75 (81.65 kg, 185.42 cm) ED Course: 07:13 Patient arrived in ED. sb2 07:14 Kumar Kimbrough MD is Attending Physician. rn 07:19 Cris Cagle, CHRISTOPHE is Primary Nurse. aa5 07:24 Triage completed. ss 07:25 Arm band placed on right wrist. ss 07:25 Patient has correct armband on for positive identification. Placed in gown. Bed in low aa5 position. Call light in reach. Side rails up X2. alarm security or surveillance monitor on. Pulse ox on. NIBP on. 07:30 Initial lab(s) drawn, by me, sent to lab. Inserted saline lock: 20 gauge in right aa5 forearm, using aseptic technique. Blood collected. 07:30 No provider procedures requiring assistance completed. aa5 08:01 X-ray completed. Portable x-ray completed in exam room. Patient tolerated procedure la2 well. 08:50 Jeferson Mccrary DO is Hospitalizing Provider. rn 11:45 Patient admitted, IV remains in place. aa5 Administered Medications: 07:40 Drug: Nitro-Bid Ointment 2 % 1 inches Route: Transdermal; Site: anterior chest wall; aa5 07:42 Drug: Lasix 60 mg Route: IVP; Site: right forearm; aa5 07:50 Follow up: Response: No adverse reaction aa5 08:42 Drug: hydrALAZINE 10 mg Route: IV; Rate: 1 calculated rate; Site: right forearm; aa5 08:57 Follow up: Response: No adverse reaction aa5 08:43 Drug: D50W 50 ml Route: IVP; Site: right forearm; aa5 08:57 Follow up: Response: No adverse reaction aa5 08:48 Drug: Insulin Regular Human 5 units {Co-Signature: [email or web address] (Annemarie Obregon RN).} Route: IVP; aa5 Site: right forearm; 08:57 Follow up: Response: No adverse reaction aa5 08:57 Drug: Sodium Bicarbonate 1 amp Route: IVP; Site: right forearm; aa5 09:13 Follow up: Response: No adverse reaction aa5 09:53 Drug: hydrALAZINE 10 mg Route: IV; Rate: bolus; Site: right forearm; aa5 Outcome: 08:51 Decision to Hospitalize by Provider. rn 11:45 Admitted to Med/surg accompanied by tech, via wheelchair, with oxygen, Report called to aa5 CHRISTOPHE Hernandez 11:45 Condition: stable 11:45 Instructed on the need for admit, Demonstrated understanding of instructions. 11:48 Patient left the ED. aa5 Signatures: Kumar Kimbrough MD MD rn Calderon, Audri, RN RN aa5 Iza Sousa RN RN ss Ardoin, Leslie la2 Rowena Sol 2 Annemarie Obregon RN [email or web address]
--- NOTE | 2017-10-13 08:52 | EDPHYS ---
Physician Documentation [facility] Name: Jermaine Rivera Age: 42 yrs Sex: Male : 1975 Arrival Date: 10/13/2017 Time: 07:13 Bed 7 Private MD: ED Physician Kumar Kimbrough HPI: 10/13 07:28 This 42 yrs old Black Male presents to ER via Ambulatory with complaints of Shortness rn Of Breath, Abdominal Pain, Feet Swelling. 07:28 The patient has shortness of breath at rest, with light activity. Onset: The rn symptoms/episode began/occurred at an unknown time. Duration: The symptoms are continuous. The patient's shortness of breath is aggravated by light activity, supine position, talking, walking. Associated signs and symptoms: Pertinent positives: productive cough, Pertinent negatives: fever, hemoptysis, loss of consciousness. Severity of symptoms: At their worst the symptoms were moderate in the emergency department the symptoms are unchanged. The patient has experienced similar episodes in the past. Reports began dialysis 90 days ago, hasn't had dialysis for 3 weeks for unclear reason, reports sob, cough of yellow sputum, no fever, + abd pain, similar symptoms in past when needed dialysis last time. No vomiting/diarrhea. Does make urine. . Historical: - Allergies: 07:25 No Known Allergies; ss - PMHx: 07:25 Dialysis; Hypertension; Renal Disease; ss - Immunization history:: Adult Immunizations up to date. - Social history:: Smoking status: Patient/guardian denies using tobacco. - Family history:: not pertinent. - Hospitalizations: : No recent hospitalization is reported. ROS: 07:28 Constitutional: Negative for fever, chills, and weight loss, Eyes: Negative for injury, rn pain, redness, and discharge, Neck: Negative for injury, pain, and swelling, Cardiovascular: Negative for chest pain, palpitations, and edema, Respiratory: Negative for wheezing, and pleuritic chest pain, Abdomen/GI: Negative for vomiting, diarrhea, and constipation, MS/Extremity: Negative for injury and deformity, Skin: Negative for injury, rash, and discoloration, Neuro: Negative for headache, weakness, numbness, tingling, and seizure. Exam: 07:28 Constitutional: This is a well developed, well nourished patient who is awake, alert, rn and in no acute distress. Head/Face: Normocephalic, atraumatic. Eyes: Pupils equal round and reactive to light, extra-ocular motions intact. Lids and lashes normal. Conjunctiva and sclera are non-icteric and not injected. Cornea within normal limits. Periorbital areas with no swelling, redness, or edema. Cardiovascular: tachycardic, regular, no murmur Respiratory: + mild tachypnea with intercostal retractions, + bibasilar crackles Abdomen/GI: Soft, non-tender, with normal bowel sounds. No distension or tympany. No guarding or rebound. No evidence of tenderness throughout. MS/ Extremity: 2+ pitting edema bilateral lower ext Neuro: Awake and alert, GCS 15, oriented to person, place, time, and situation. Cranial nerves II-XII grossly intact. Motor strength 5/5 in all extremities. Sensory grossly intact. Cerebellar exam normal. Normal gait. Vital Signs: 07:25 BP 235 / 168; Pulse 112; Resp 34; Pulse Ox 92% on R/A; Weight 81.65 kg (R); Height 6 ss ft. 1 in. (185.42 cm); 07:27 Temp 97.8(O); aa5 07:35 BP 222 / 161; Pulse 106; Resp 30 S; Pulse Ox 95% on 2 lpm NC; aa5 07:50 BP 215 / 155; Pulse 105; Resp 30 S; Pulse Ox 97% on 2 lpm NC; aa5 08:00 BP 217 / 155; Pulse 105; Resp 28; Pulse Ox 97% on 2 lpm NC; aa5 08:11 BP 213 / 154; Pulse 101; Resp 28 S; Pulse Ox 96% on 2 lpm NC; aa5 08:30 BP 210 / 151; Pulse 98; Resp 28 S; Pulse Ox 97% on 2 lpm NC; aa5 08:50 BP 204 / 145; Pulse 105; Resp 26 S; Pulse Ox 96% on 2 lpm NC; Pain 0/10; aa5 09:05 BP 204 / 138; Pulse 99; Resp 28 S; Pulse Ox 96% on 2 lpm NC; aa5 09:53 BP 198 / 142; Pulse 105; Resp 26 S; Pulse Ox 96% on 2 lpm NC; aa5 10:19 BP 180 / 129; Pulse 108; Resp 24 S; Pulse Ox 96% on 2 lpm NC; aa5 11:20 BP 190 / 128; Pulse 105; Resp 24 S; Temp 98.0(O); Pulse Ox 96% on 2 lpm NC; Pain 0/10; aa5 07:25 Body Mass Index 23.75 (81.65 kg, 185.42 cm) ss MDM: 07:14 Patient medically screened. rn 08:49 Differential diagnosis: Anemia pulmonary edema. Data reviewed: vital signs, nurses rn notes, lab test result(s), EKG, radiologic studies, plain films, and as a result, I will admit patient. Counseling: I had a detailed discussion with the patient and/or guardian regarding: the historical points, exam findings, and any diagnostic results supporting the discharge/admit diagnosis, the presence of at least one elevated blood pressure reading (>120/80) during this emergency department visit, lab results, radiology results, the need for further work-up and treatment in the hospital. Response to treatment: the patient's symptoms have mildly improved after treatment, and as a result, I will admit patient. Admission orders: after a detailed discussion of the patient's condition and case, the admit orders are written by me. ED course: Paging Dr Yepez, regarding patient's need for dialysis. 08:56 ED course: Spoke with Dr. yepez, will arrange dialysis today.. rn 10/13 07:24 Order name: CBC with Diff; Complete Time: 08:37 rn 10/13 07:24 Order name: Basic Metabolic Panel; Complete Time: 08:37 rn 10/13 07:24 Order name: BNP; Complete Time: 08:37 rn 10/13 07:24 Order name: Troponin (emerg Dept Use Only); Complete Time: 08:37 rn 10/13 07:24 Order name: XRAY Chest (1 view) rn 10/13 07:24 Order name: IV Start; Complete Time: 07:37 rn 10/13 07:24 Order name: EKG; Complete Time: 07:25 rn 10/13 07:24 Order name: EKG - Nurse/Tech; Complete Time: 07:37 rn Administered Medications: 07:40 Drug: Nitro-Bid Ointment 2 % 1 inches Route: Transdermal; Site: anterior chest wall; aa5 07:42 Drug: Lasix 60 mg Route: IVP; Site: right forearm; aa5 07:50 Follow up: Response: No adverse reaction aa5 08:42 Drug: hydrALAZINE 10 mg Route: IV; Rate: 1 calculated rate; Site: right forearm; aa5 08:57 Follow up: Response: No adverse reaction aa5 08:43 Drug: D50W 50 ml Route: IVP; Site: right forearm; aa5 08:57 Follow up: Response: No adverse reaction aa5 08:48 Drug: Insulin Regular Human 5 units {Co-Signature: [email or web address] (Annemarie Obregon RN).} Route: IVP; aa5 Site: right forearm; 08:57 Follow up: Response: No adverse reaction aa5 08:57 Drug: Sodium Bicarbonate 1 amp Route: IVP; Site: right forearm; aa5 09:13 Follow up: Response: No adverse reaction aa5 09:53 Drug: hydrALAZINE 10 mg Route: IV; Rate: bolus; Site: right forearm; aa5 Disposition: 10/13/17 08:51 Hospitalization ordered by Jeferson Mccrary for Inpatient Admission. Preliminary diagnosis are Pulmonary edema, End stage renal disease, Hyperkalemia, Acidosis. - Bed requested for Telemetry/MedSurg (Inpatient). - Status is Inpatient Admission. aa5 - Condition is Stable. - Problem is an ongoing problem. - Symptoms have improved. UTI on Admission? No Signatures: Dispatcher [employer] EDMS Kumar Kimbrough MD MD rn Calderon, Audri, RN RN aa5 Iza Sousa RN RN Jes Paredes Annemarie Obregon RN [email or web address] Corrections: (The following items were deleted from the chart) 09:02 08:51 Hospitalization Ordered by Jeferson Mccrary DO for Inpatient Admission. Preliminary eb diagnosis is Pulmonary edema; End stage renal disease; Hyperkalemia; Acidosis. Bed requested for Telemetry/MedSurg (Inpatient). Status is Inpatient Admission. Condition is Stable. Problem is an ongoing problem. Symptoms have improved. UTI on Admission? No. rn 10:00 09:02 10/13/2017 08:51 Hospitalization Ordered by Jeferson Mccrary DO for Inpatient eb Admission. Preliminary diagnosis is Pulmonary edema; End stage renal disease; Hyperkalemia; Acidosis. Bed requested for Telemetry/MedSurg (Inpatient). Status is Inpatient Admission. Condition is Stable. Problem is an ongoing problem. Symptoms have improved. UTI on Admission? No. eb 10:26 10:00 10/13/2017 08:51 Hospitalization Ordered by Jeferson Mccrary DO for Inpatient eb Admission. Preliminary diagnosis is Pulmonary edema; End stage renal disease; Hyperkalemia; Acidosis. Bed requested for Telemetry/MedSurg (Inpatient). Status is Inpatient Admission. Condition is Stable. Problem is an ongoing problem. Symptoms have improved. UTI on Admission? No. eb 10:40 10:26 10/13/2017 08:51 Hospitalization Ordered by Jeferson Mccrary DO for Inpatient eb Admission. Preliminary diagnosis is Pulmonary edema; End stage renal disease; Hyperkalemia; Acidosis. Bed requested for Telemetry/MedSurg (Inpatient). Status is Inpatient Admission. Condition is Stable. Problem is an ongoing problem. Symptoms have improved. UTI on Admission? No. eb 11:48 10:40 10/13/2017 08:51 Hospitalization Ordered by Jeferson Mccrary DO for Inpatient aa5 Admission. Preliminary diagnosis is Pulmonary edema; End stage renal disease; Hyperkalemia; Acidosis. Bed requested for Telemetry/MedSurg (Inpatient). Status is Inpatient Admission. Condition is Stable. Problem is an ongoing problem. Symptoms have improved. UTI on Admission? No. eb
[2017-10-13] MEDS ORDERED: NA CHLORIDE 0.9% 1,000 ML IV PRN (11:18)
[2017-10-13] MEDS ORDERED: MANNITOL 25% 12.5 GM/50 ML VIAL IV PRN (11:18)
[2017-10-13] MEDS ORDERED: EPOETIN ALFA 10,000 UNIT/ML VIAL IV SCH (11:30)
[2017-10-13] MEDS ORDERED: ALBUMIN HUMAN 25% 50 ML IV SCH (12:00)
--- NOTE | 2017-10-13 12:05 | RAD REPORT ---
EXAM DESCRIPTION: RAD - Chest Single View - 10/13/2017 10:52 am CLINICAL HISTORY: Shortness of breath COMPARISON: 09/12/2017 FINDINGS: Portable technique limits examination quality. Since the comparative study, an area of airspace opacity has developed in the right lower lobe. Most likely, this represents an area of pneumonia. The heart is mildly to moderately enlarged. Right-sided venous catheter tip in the SVC. No displaced fractures.
[2017-10-13] MEDS ORDERED: ACETAMINOPHEN 500 MG TAB PO PRN (17:22)
--- NOTE | 2017-10-13 17:30 | P.HP ---
Certification for Inpatient With expected LOS: >2 Midnights Patient will require the following post-hospital care: None Practitioner: I am a practitioner with admitting privileges, knowledge of patient current condition, hospital course, and medical plan of care. Services: Services provided to patient in accordance with Admission requirements found in Title 42 Section 412.3 of the Code of Federal Regulations Patient History Date of Service: 10/13/17 Reason for admission: shortness of breath History of Present Illness: 42 year old male with history of DM II,hypertension, ESRD not on routine HD due to funding issues who presented with complaint of shortness of breath.Per patient symptom has been ongoing for weeks but appears to slowly get owrse with each day.SOB said to occur both at rest and on exertion.Associated with cough and lower extremity edema.He denies any fever, chest pain , hemoptysis, PND or orthopnea.Patient states that he was started on HD about 3 months ago but has not had any dialysis in 3 weeks.He still makes urine.Denies any abdominal pain, nausea or vomiting. Allergies No Known Allergies Allergy (Verified 08/06/17 01:36) Home Medications: Calcitrol [Rocaltrol*] 0.5 mcg PO DAILY #30 cap 08/12/17 Cholecalciferol (Vitamin D3) [Vitamin D 5,000 IU Cap*] 5,000 unit PO DAILY #30 cap 08/12/17 Hydralazine HCl [Apresoline] 100 mg PO TID #90 tablet 08/12/17 Nifedipine [Procardia Xl] 90 mg PO BID #60 tab.er.24 08/12/17 Ramipril [Altace] 10 mg PO DAILY #30 capsule 08/12/17 Sevelamer Carbonate [Renvela*] 1,600 mg PO TIDWM #90 tablet 08/12/17 Metoprolol Tartrate [Lopressor*] 100 mg PO BID #60 tab 10/02/17 Terazosin HCl [Hytrin] 10 mg PO BID 10/13/17 - Past Medical/Surgical History Has patient received pneumonia vaccine in the past: No Diabetic: No -: Hypertension -: End-stage renal disease -: Diastolic CHF -: Anemia of chronic disease -: Thrombocytopenia -: Left foot sx Psychosocial/ Personal History: The patient is single. He has 9 children. He does not work. He recently got out of correction in May of 2016. - Family History Mother -: Heart disease, Hypertension, Kidney disease - Social History Smoking Status: Never smoker Alcohol use: No CD- Drugs: No Caffeine use: Yes Place of Residence: Home Review of Systems 10-point ROS is otherwise unremarkable Physical Examination - Vital Signs Temperature: 98.7 F Blood Pressure: 187/119 Pulse: 104 Respirations: 18 Pulse Ox (%): 99 - Physical Exam General: Alert, Oriented x3, Mild distress HEENT: Atraumatic, Normocephalic, PERRLA Neck: Supple, No Thyromegaly, No LAD Respiratory: Crackles/rales Cardiovascular: Regular rate/rhythm, Normal S1 S2, Other (tachycardia), Edema Gastrointestinal: Normal bowel sounds, Soft and benign, W/out hepatosplenomegaly , No tenderness, No masses, No rebound, No guarding Neurological: Normal gait, Normal speech, Normal strength at 5/5 x4 extr, Normal tone, Sensation intact - Studies Laboratory Data (last 24 hrs) 10/13/17 07:30: B-Natriuretic Peptide > 48709 H 10/13/17 07:30: Sodium 137, Potassium 5.4 H, BUN 120 H D, Creatinine 24.47 H* D , Glucose 101 10/13/17 07:30: WBC 5.2 D, Hgb 7.4 L*, Hct 23.5 L, Plt Count 176 D Assessment and Plan - Problems (Diagnosis) (1) Acute pulmonary edema Onset Date: 05/13/17 Current Visit: No Status: Acute Plan: secondary to volume overload from ESRD stat HD per renal continue lasix post HD (2) Anemia Onset Date: 10/01/17 Current Visit: No Status: Acute Plan: likely secondary to chronic disease blood transfusion with HD continue epo denies any bleeding Qualifiers: Anemia type: due to chronic kidney disease Chronic kidney disease stage: on chronic dialysis Qualified Code(s): N18.6 - End stage renal disease; D63.1 - Anemia in chronic kidney disease; Z99.2 - Dependence on renal dialysis (3) Malignant hypertension Onset Date: 08/07/17 Current Visit: No Status: Acute Plan: stat HD resume home meds will adjust medications post HD as needed (4) End stage renal disease Onset Date: 10/01/17 Current Visit: No Status: Chronic Plan: Renal consulted, plan to dialyze immediately resume home medications I/O Discharge Plan: Home - Advance Directives Does patient have a Living Will: No Does patient have a Durable POA for Healthcare: Yes Physician Review: Patient Assessed, Agree with Above Assessment and Plan Time Spent Managing Pts Care (In Minutes): 40
[2017-10-13] MEDS ORDERED: GLUCAGON 1 MG/VIAL IM PRN (17:45)
[2017-10-13] MEDS ORDERED: D50W 25 GM/50 ML SYRINGE IV PRN (17:45)
[2017-10-13] MEDS: RAMIPRIL 5 MG CAP PO SCH (18:33)
[2017-10-13] MEDS: CALCITROL 0.25 MCG CAP PO SCH (18:33)
[2017-10-13] MEDS: INSULIN -REGULAR HUMAN 50 UNIT/0.5 ML ML SQ SCH (21:00)
[2017-10-13] MEDS ORDERED: HOME MED 1 EA UNK (Hydralazine Hcl [Apresoline] 100 MG) PO SCH (21:00)
[2017-10-13] MEDS ORDERED: TERAZOSIN HCL 10 MG PO SCH (21:00)
[2017-10-13] MEDS: HYDRALAZINE HCL 25 MG TABLET PO SCH (21:02)
[2017-10-13] MEDS: TERAZOSIN HCL 5 MG CAP PO SCH (21:02)
[2017-10-13] MEDS: NIFEDIPINE XL 90 MG TABLET PO SCH (21:02)
[2017-10-13] MEDS: METOPROLOL TAR 50 MG TAB PO SCH (21:03)
[2017-10-14 02:19] LABS: Urine Appearance CLEAR; Urine Bilirubin NEGATIVE (NEG); Urine Blood NEGATIVE (NEG); Urine Color YELLOW; Urine Glucose NEGATIVE (NEG); Urine Protein 2+ (NEG); Urine Urobilinogen 0.2 mg/dL (0.2-1.0)
[2017-10-14 02:20] LABS: Urine Microscopic Reflex ORDER UMIC
[2017-10-14 05:03] LABS: Urine Bacteria <20 /HPF (NONE SEEN); Urine Culture Reflex Order NOT NEEDED; Urine RBC <5 /HPF (NONE SEEN)
[2017-10-14 05:32] LABS: Absolute Lymphocytes (CBC) 0.7 K/uL (0.7-4.9); Absolute Monocytes 0.6 K/uL (0.1-1.3); Absolute Neutrophil 1.7 K/uL (1.8-8.0); Basophils % 1.3 % (0-1.3); Eosinophils % 4.6 % (0-4.4); Lymphocytes % 23.1 % (15.3-44.8); MCH 26.2 pg (27.0-35.0); MCV 80.1 fL (80-100); MPV 7.5 fL (7.6-11.3); Monocytes % 17.4 % (3.3-12.3); RBC Red Blood Cell Count 2.58 M/uL (4.33-5.43)
[2017-10-14 05:39] LABS: Hematocrit 20.6 % (39.6-49.0)
[2017-10-14 06:00] LABS: Magnesium 1.6 mg/dL (1.8-2.5); Phosphorus 6.3 mg/dL (2.5-4.3); Potassium 4.1 mEq/L (3.6-5.0)
[2017-10-14 06:17] LABS: Anisocytosis 2+; Blood Morphology Comment NOTED (NOT SEEN); Hypochromasia 1+; Platelet Estimate ADEQ; Urine White Blood Cell Casts OK
--- NOTE | 2017-10-14 06:56 | EKG ---
Test Date: 2017-10-13 Test Time: 07:45:38 Chemical Production Machine Operator: DIANDRA MEASUREMENT RESULTS: Intervals: Rate: 104 LA: 142 QRSD: 88 QT: 390 QTc: 512 Archie: P: 67 LA: 142 QRS: -11 T: 63 INTERPRETIVE STATEMENTS: Sinus tachycardia Otherwise normal ECG Compared to ECG 10/01/2017 09:31:01 Atrial fibrillation no longer present Ventricular premature complex(es) no longer present ST (T wave) deviation no longer present Possible ischemia no longer present Electronically Signed On 10-14-17 06:53:52 CDT by Loki Mitchell
[2017-10-14 07:21] VITALS: BMI 23.0
[2017-10-14] MEDS: INSULIN -REGULAR HUMAN 50 UNIT/0.5 ML ML SQ SCH ×3 (07:30→16:30)
[2017-10-14] MEDS: RAMIPRIL 5 MG CAP PO SCH ×2 (09:00→15:10)
[2017-10-14] MEDS: HYDRALAZINE HCL 25 MG TABLET PO SCH ×2 (09:00→13:09)
[2017-10-14] MEDS: TERAZOSIN HCL 5 MG CAP PO SCH (09:00)
[2017-10-14] MEDS: METOPROLOL TAR 50 MG TAB PO SCH ×2 (09:00→13:09)
[2017-10-14] MEDS ORDERED: HOME MED 1 EA UNK (Ramipril [Altace] 10 MG) PO SCH (09:00)
[2017-10-14] MEDS ORDERED: VITAMIN D 5,000 UNIT CAP PO SCH (09:00)
[2017-10-14] MEDS: NIFEDIPINE XL 90 MG TABLET PO SCH (09:00)
[2017-10-14] MEDS: CALCITROL 0.25 MCG CAP PO SCH (10:11)
[2017-10-14] MEDS: SEVELAMER CARBONATE 800 MG TABLET PO SCH ×3 (10:11→16:47)
[2017-10-14 10:19] LABS: A1c Component 0.26 mg/dL; Hemoglobin A1c 5.5 % (4-6.0)
[2017-10-14] MEDS ORDERED: NA CHLORIDE 0.9% 250 ML ONE (10:57)
[2017-10-14 11:35] VITALS: O2SAT 98
[2017-10-14 12:50] VITALS: BP 159/102; TEMP 97.9
[2017-10-14 17:08] LABS: Hematocrit 27.4 % (39.6-49.0)
--- NOTE | 2017-10-14 17:09 | P.PN ---
Subjective Date of Service: 10/14/17 Primary Care Provider: none Chief Complaint: shortness of breath Subjective: Improving Physical Examination - Vital Signs Temperature: 97.9 F Blood Pressure: 159/102 Pulse: 73 Respirations: 18 Pulse Ox (%): 99 - Physical Exam General: Alert, In no apparent distress, Oriented x3, Cooperative HEENT: Atraumatic Neck: Supple Respiratory: Diminished (Slightly diminished) Cardiovascular: Normal pulses, Regular rate/rhythm Gastrointestinal: Normal bowel sounds, Soft and benign, Non-distended, No tenderness, No masses, No rebound, No guarding Musculoskeletal: No erythema, No tenderness, No warmth Integumentary: No erythema, No warmth, No cyanosis, Tenderness/swelling (mild edema to the lower ext) Neurological: Normal speech, Normal strength at 5/5 x4 extr, Normal tone, Normal affect - Studies Medications List Reviewed: Yes Assessment & Plan - Problems (Diagnosis) (1) Pulmonary edema Current Visit: Yes Status: Acute Plan: Improved with dialysis. Will monitor. Spoke with nephrology. Patient will have dialysis again today. Will discuss with social work job titles about the possibility of set up for chronic dialysis as an outpatient. Will recheck chest x-ray. Qualifiers: Chronicity: acute Qualified Code(s): J81.0 - Acute pulmonary edema (2) HTN (hypertension) Current Visit: Yes Status: Chronic Plan: Continue with medication. Will monitor and adjust appropriately. Qualifiers: Hypertension type: essential hypertension Qualified Code(s): I10 - Essential (primary) hypertension (3) End stage renal disease Onset Date: 10/01/17 Current Visit: Yes Status: Chronic Plan: Patient has end-stage renal disease. Will continue with dialysis at this time. Will discuss with social work job titles and nephrology about setting up dialysis as an outpatient. Possible discharge soon if this can be arranged. Discharge Plan: Home Plan to discharge in: 24 Hours Time Spent Managing Pts Care (In Minutes): 55
--- NOTE | 2017-10-14 17:24 | P.DS ---
Admission Date: 10/13/17 Discharge Date: 10/14/17 Primary Care Provider: none Disposition: ROUTINE DISCHARGE Discharge Condition: GOOD Reason for Admission: shortness of breath Consultations: Nephrology-Dr. Lomeli - Problems (1) Pulmonary edema Current Visit: Yes Status: Acute Qualifiers: Chronicity: acute Qualified Code(s): J81.0 - Acute pulmonary edema (2) HTN (hypertension) Current Visit: Yes Status: Chronic Qualifiers: Hypertension type: essential hypertension Qualified Code(s): I10 - Essential (primary) hypertension (3) End stage renal disease Onset Date: 10/01/17 Current Visit: Yes Status: Chronic (4) Anemia Onset Date: 10/01/17 Current Visit: Yes Status: Acute Qualifiers: Anemia type: due to chronic kidney disease Chronic kidney disease stage: on chronic dialysis Qualified Code(s): N18.6 - End stage renal disease; D63.1 - Anemia in chronic kidney disease; Z99.2 - Dependence on renal dialysis Brief History of Present Illness: 42-year-old male presented emergency room with increasing shortness of breath. Patient found to be in acute pulmonary edema secondary to end-stage renal disease. Patient is in the process of trying to obtain outpatient dialysis. Patient was evaluated the emergency room. He was admitted for dialysis treatment. Hospital Course: During his hospital stay his condition improved. Shortness of breath resolved. Repeat x-ray showed improvement. Patient did not require any oxygen at discharge. At discharge patient will need to follow up with Nephrology to further assess his end-stage renal disease. He is to follow up with social science teacher to help arrange for outpatient dialysis. He will hopefully get some information from the State soon concerning this. Patient has a history of hypertension. Patient will continue with his medication. Further adjustment can be done by his PCP or nephrology. Patient has anemia of chronic disease. Hemoglobin was low. Patient did receive 2 units of blood during dialysis. This can be followed up as an outpatient. Vital Signs/Physical Exam: Temp Pulse Resp BP Pulse Ox 97.9 F 73 18 159/102 H 99 10/14/17 17:09 10/14/17 17:09 10/14/17 17:09 10/14/17 17:09 10/14/17 17:09 General: Alert, In no apparent distress, Oriented x3, Cooperative HEENT: Atraumatic, Mucous membr. moist/pink Neck: Supple, No Thyromegaly Respiratory: Clear to auscultation bilaterally, Normal air movement Cardiovascular: Normal pulses, Regular rate/rhythm Gastrointestinal: Normal bowel sounds, Soft and benign, Non-distended, No tenderness, No masses, No rebound, No guarding Musculoskeletal: No erythema, No tenderness, No warmth Integumentary: No tenderness/swelling, No erythema, No warmth, No cyanosis Neurological: Normal speech, Normal strength at 5/5 x4 extr, Normal tone, Normal affect Lymphatics: No axilla or inguinal lymphadenopathy Laboratory Data at Discharge: WBC 3.2 K/uL (4.3-10.9) L D 10/14/17 04:30 Hgb 8.9 g/dL (13.6-17.9) L 10/14/17 16:23 Hct 27.4 % (39.6-49.0) L D 10/14/17 16:23 Plt Count 144 K/uL (152-406) L 10/14/17 04:30 Sodium 137 mEq/L (135-145) 10/14/17 04:30 Potassium 4.1 mEq/L (3.6-5.0) 10/14/17 04:30 BUN 78 mg/dL (6-20) H D 10/14/17 04:30 Creatinine 16.96 mg/dL (0.61-1.24) H* D 10/14/17 04:30 Glucose 105 mg/dL (65-120) 10/14/17 04:30 Phosphorus 6.3 mg/dL (2.5-4.3) H 10/14/17 04:30 Magnesium 1.6 mg/dL (1.8-2.5) L 10/14/17 04:30 B-Natriuretic Peptide > 73552 pg/ml (<=100) H 10/13/17 07:30 Home Medications: Calcitrol [Rocaltrol*] 0.5 mcg PO DAILY #30 cap 08/12/17 Cholecalciferol (Vitamin D3) [Vitamin D 5,000 IU Cap*] 5,000 unit PO DAILY #30 cap 08/12/17 Hydralazine HCl [Apresoline] 100 mg PO TID #90 tablet 08/12/17 Nifedipine [Procardia Xl] 90 mg PO BID #60 tab.er.24 08/12/17 Ramipril [Altace] 10 mg PO DAILY #30 capsule 08/12/17 Sevelamer Carbonate [Renvela*] 1,600 mg PO TIDWM #90 tablet 08/12/17 Metoprolol Tartrate [Lopressor*] 100 mg PO BID #60 tab 10/02/17 Terazosin HCl [Hytrin] 10 mg PO BID 10/13/17 Patient Discharge Instructions: 1. Patient will need to follow up with his PCP to further monitor and follow up this hospitalization. 2. Patient presented with acute pulmonary edema secondary to end-stage renal disease. Patient received dialysis. Patient will follow up with nephrology as an outpatient. Patient making arrangements to set up outpatient hemodialysis. He is to follow up with social science teacher to further address. 3. Patient has hypertension. Patient will continue with his medications. 4. Patient will continue with his renal medications. 5. Patient with anemia of chronic disease. Patient received 2 units of blood during dialysis. This can be followed up as an outpatient. Diet: Renal Activity: Ad lisa Time spent managing pt's care (in minutes): 55
== END 2017-10-14 18:52 | disposition home or self-care (01) | DRG 291 ==
LOC: ER 07:10 → ERHOLD 08:51 → 2ND 11:13
PROVIDERS: ADMIT Internal Medicine; ATTEND Internal Medicine
PROC: 30233N1 Transfusion of Nonautologous Red Blood Cells into Peripheral Vein, Percutaneous Approach (ICD-10-PCS; principal; 2017-10-13)
PROC: 5A1D70Z Performance of Urinary Filtration, Intermittent, Less than 6 Hours Per Day (ICD-10-PCS; 2017-10-13)
PROC: 5A1D70Z Performance of Urinary Filtration, Intermittent, Less than 6 Hours Per Day (ICD-10-PCS; 2017-10-13)
DX: I13.2 Hypertensive heart and chronic kidney disease with heart failure and with stage 5 chronic kidney disease, or end stage renal disease (principal); N18.6 End stage renal disease; I50.32 Chronic diastolic (congestive) heart failure; D63.1 Anemia in chronic kidney disease
CPT/HCPCS: 36415; 71045; 80048; 81003; 81015; 82962; 83036; 83735; 83880; 84100; 84484; 85014; 85018; 85025; 86850; 86900; 86901; 90935; 93005; 96374; 96375; 99285; J0360; J1940; P9016; Q4081

== ENCOUNTER 2017-10-21 02:16 | Inpatient (IN) | payer OTHER ==
[2017-10-21] MEDS ORDERED: HYDRALAZINE HCL 20 MG/ML VIAL ONE (02:51)
[2017-10-21 03:42] LABS: Absolute Lymphocytes (CBC) 0.7 K/uL (0.7-4.9); Absolute Monocytes 0.5 K/uL (0.1-1.3); Absolute Neutrophil 4.3 K/uL (1.8-8.0); Basophils % 1.1 % (0-1.3); Hematocrit 26.1 % (39.6-49.0); Lymphocytes % 12.6 % (15.3-44.8); MCH 26.9 pg (27.0-35.0); MCV 84.1 fL (80-100); MPV 7.8 fL (7.6-11.3); Monocytes % 8.5 % (3.3-12.3)
--- NOTE | 2017-10-21 04:02 | EDPHYS ---
Physician Documentation [facility] Name: Jermaine Rivera Age: 42 yrs Sex: Male : 1975 Arrival Date: 10/21/2017 Time: 02:16 Bed 2 Private MD: ED Physician Yonis Edward HPI: 10/21 03:52 This 42 yrs old Black Male presents to ER via Ambulatory with complaints of Shortness tw4 Of Breath. 03:52 The patient has shortness of breath at rest. Onset: The symptoms/episode began/occurred tw4 2 day(s) ago. Duration: The symptoms are continuous, and are steadily getting worse. The patient's shortness of breath is aggravated by exertion. Associated signs and symptoms: The patient has no apparent associated signs or symptoms. Severity of symptoms: At their worst the symptoms were moderate in the emergency department the symptoms are unchanged. The patient has not experienced similar symptoms in the past. Historical: - Allergies: 02:25 No Known Allergies; aa1 - PMHx: 02:25 Dialysis; Hypertension; Renal Disease; aa1 - PSHx: 02:25 None; aa1 - Immunization history:: Flu vaccine is up to date. - Social history:: Smoking status: Patient/guardian denies using tobacco. ROS: 03:52 Constitutional: Negative for fever, chills, and weight loss, Neck: Negative for injury, tw4 pain, and swelling, Cardiovascular: Negative for chest pain, palpitations, and edema, Abdomen/GI: Negative for abdominal pain, nausea, vomiting, diarrhea, and constipation, Back: Negative for injury and pain. 03:52 Respiratory: Positive for shortness of breath, Negative for cough, dyspnea on exertion, hemoptysis, orthopnea, pleurisy. Exam: 03:52 Head/Face: Normocephalic, atraumatic. tw4 03:52 MS/ Extremity: Pulses equal, no cyanosis. Neurovascular intact. Full, normal range of motion. Neuro: Awake and alert, GCS 15, oriented to person, place, time, and situation. Cranial nerves II-XII grossly intact. Motor strength 5/5 in all extremities. Sensory grossly intact. Cerebellar exam normal. Normal gait. 03:52 Constitutional: The patient appears in obvious distress, mildly distressed, uncomfortable. 03:52 Cardiovascular: Rate: tachycardic, Rhythm: regular. 03:52 Respiratory: moderate respiratory distress is noted, Respirations: labored breathing, Breath sounds: rales. Vital Signs: 02:25 BP 214 / 131; Pulse 105; Resp 22; Temp 98.8; Pulse Ox 84% on R/A; Weight 77.11 kg; aa1 Height 6 ft. 1 in. (185.42 cm); Pain 8/10; 03:30 BP 177 / 114; Pulse 103; Resp 14; Pulse Ox 100% on BiPAP; ao 04:45 BP 146 / 96; Pulse 104; Resp 18; Pulse Ox 97% on 2 lpm NC; Pain 0/10; ao 02:25 Body Mass Index 22.43 (77.11 kg, 185.42 cm) aa1 MDM: 02:45 Patient medically screened. tw4 03:52 Differential diagnosis: Anemia Anxiety Reaction. Immunization status:. Data reviewed: vital signs, nurses notes. Counseling: I had a detailed discussion with the patient and/or guardian regarding: the historical points, exam findings, and any diagnostic results supporting the discharge/admit diagnosis, lab results, radiology results. Physician consultation: Alta Pace MD regarding admission, patient's condition, need to come to ED to see patient, and will see patient in ED. 10/21 02:32 Order name: Basic Metabolic Panel 10/21 02:32 Order name: BNP; Complete Time: 04:49 10/21 02:32 Order name: CBC with Diff; Complete Time: 04:49 10/21 02:32 Order name: Ckmb 10/21 02:32 Order name: CPK 10/21 02:32 Order name: LFT's 10/21 02:32 Order name: Magnesium 10/21 02:32 Order name: PT-INR; Complete Time: 04:49 10/21 02:32 Order name: Ptt, Activated; Complete Time: 04:49 10/21 02:32 Order name: Troponin (emerg Dept Use Only) 10/21 05:05 Order name: CBC with Automated Diff EDMS 10/21 05:05 Order name: CBC with Automated Diff EDMS 10/21 05:05 Order name: Comprehensive Metabolic Panel EDMS 10/21 05:05 Order name: Comprehensive Metabolic Panel DC 10/21 02:32 Order name: XRAY Chest (1 view) tw 10/21 02:32 Order name: EKG; Complete Time: 02:33 tw4 10/21 02:32 Order name: Cardiac monitoring; Complete Time: 02:57 tw4 10/21 02:32 Order name: EKG - Nurse/Tech; Complete Time: 02:57 tw4 10/21 02:32 Order name: IV Saline Lock; Complete Time: 02:57 tw4 10/21 02:32 Order name: Labs collected and sent; Complete Time: 02:57 tw4 10/21 02:32 Order name: O2 Per Protocol; Complete Time: 02:57 tw 10/21 03:11 Order name: BIPAP snw 10/21 05:05 Order name: CONS Pharmacy Consult EDDC 10/21 05:05 Order name: CONS Physician Consult EDDC 10/21 05:05 Order name: Renal EDDC 10/21 05:05 Order name: Chest Single View EDDC 10/21 05:05 Order name: Chest Single View EDDC 10/21 05:08 Order name: ABG Arterial Blood Gas EDDC Administered Medications: 02:57 Drug: hydrALAZINE 10 mg Route: IV; Rate: bolus; Site: left antecubital; ao Disposition: 10/21/17 04:01 Hospitalization ordered by Alta Pace for Inpatient Admission. Preliminary diagnosis is Acute pulmonary edema. - Bed requested for Telemetry/MedSurg (observation). - Status is Inpatient Admission. ao - Condition is Fair. - Problem is an ongoing problem. - Symptoms have worsened. UTI on Admission? No Signatures: Dispatcher [employer] EDDC Cristel Mora RN RN mw Kern, Alissa RN RN aa1 Olvin Preston RN Yonis Medel MD MD tw4 Corrections: (The following items were deleted from the chart) 04:27 04:01 Hospitalization Ordered by Alta Pace MD for Inpatient Admission. Preliminary jose diagnosis is Acute pulmonary edema. Bed requested for Telemetry/MedSurg (observation). Status is Inpatient Admission. Condition is Fair. Problem is an ongoing problem. Symptoms have worsened. UTI on Admission? No. tw4 05:57 04:27 10/21/2017 04:01 Hospitalization Ordered by Alta Pace MD for Inpatient ao Admission. Preliminary diagnosis is Acute pulmonary edema. Bed requested for Telemetry/MedSurg (observation). Status is Inpatient Admission. Condition is Fair. Problem is an ongoing problem. Symptoms have worsened. UTI on Admission? No. mw
--- NOTE | 2017-10-21 04:02 | ER ---
Nurse's Notes [facility] Name: Jermaine Rivera Age: 42 yrs Sex: Male : 1975 Arrival Date: 10/21/2017 Time: 02:16 Bed 2 Private MD: Diagnosis: Acute pulmonary edema Presentation: 10/21 02:23 Presenting complaint: Patient states: SOB, abd pain, and swelling in feet since last aa1 night. Pt reports he has missed dialysis for the past week. Transition of care: patient was not received from another setting of care. Onset of symptoms was October 20, 2017. Initial Sepsis Screen: Does the patient meet any 2 criteria? RR > 20 per min. HR > 90 bpm. Yes Does the patient have a suspected source of infection? Yes: Acute abdominal pain. Care prior to arrival: None. 02:23 Method Of Arrival: Ambulatory aa1 02:23 Acuity: FERNANDA 2 aa1 Triage Assessment: 02:25 General:. aa1 03:00 Respiratory: Reports shortness of breath Onset: The symptoms/episode began/occurred at ao an unknown time. the patient has moderate shortness of breath. Historical: - Allergies: 02:25 No Known Allergies; aa1 - PMHx: 02:25 Dialysis; Hypertension; Renal Disease; aa1 - PSHx: 02:25 None; aa1 - Immunization history:: Flu vaccine is up to date. - Social history:: Smoking status: Patient/guardian denies using tobacco. Screenin:59 Abuse screen: Denies threats or abuse. Denies injuries from another. Nutritional ao screening: No deficits noted. Tuberculosis screening: No symptoms or risk factors identified. Fall Risk None identified. Assessment: 02:57 General: Appears in no apparent distress. uncomfortable, Behavior is cooperative. Pain: ao Complains of pain in chest. Neuro: Level of Consciousness is awake, alert, obeys commands, Oriented to person, place, time, situation, Appropriate for age Moves all extremities. Speech is normal, Facial symmetry appears normal. Cardiovascular: Capillary refill < 3 seconds Patient's skin is warm and dry. Rhythm is regular. Respiratory: Airway is patent Respiratory effort is labored, Respiratory pattern is regular, symmetrical, Patient in BIPAP at this moment. GI: Abdomen is non-distended. : No signs and/or symptoms were reported regarding the genitourinary system. EENT: No signs and/or symptoms were reported regarding the EENT system. Derm: No signs and/or symptoms reported regarding the dermatologic system. Musculoskeletal: No signs and/or symptoms reported regarding the musculoskeletal system. 02:57 Respiratory: Breath sounds with wheezes bilaterally. ao 03:55 Reassessment: Patient appears in no apparent distress at this time. Patient and/or ao family updated on plan of care and expected duration. Pain level reassessed. Patient is alert, oriented x 3, equal unlabored respirations, skin warm/dry/pink. 04:55 Reassessment: Patient appears in no apparent distress at this time. Patient and/or ao family updated on plan of care and expected duration. Pain level reassessed. Patient is alert, oriented x 3, equal unlabored respirations, skin warm/dry/pink. Waiting on Dr orders to take patient to his room. Vital Signs: 02:25 BP 214 / 131; Pulse 105; Resp 22; Temp 98.8; Pulse Ox 84% on R/A; Weight 77.11 kg; aa1 Height 6 ft. 1 in. (185.42 cm); Pain 8/10; 03:30 BP 177 / 114; Pulse 103; Resp 14; Pulse Ox 100% on BiPAP; ao 04:45 BP 146 / 96; Pulse 104; Resp 18; Pulse Ox 97% on 2 lpm NC; Pain 0/10; ao 02:25 Body Mass Index 22.43 (77.11 kg, 185.42 cm) aa1 ED Course: 02:16 Patient arrived in ED. ds1 02:24 Triage completed. aa1 02:25 Arm band placed on right wrist. Patient placed in an exam room, on a stretcher, on aa1 oxygen. 02:31 Yonis Edward MD is Attending Physician. tw4 02:38 Olvin Preston, CHRISTOPHE is Primary Nurse. ao 02:41 X-ray completed. Portable x-ray completed in exam room. Patient tolerated procedure kw well. 02:41 XRAY Chest (1 view) In Process Unspecified. EDMS 02:50 Inserted saline lock: 20 gauge in right forearm, using aseptic technique. Blood ao collected. 02:59 Patient has correct armband on for positive identification. clinical research monitor on. Pulse ao ox on. NIBP on. 04:00 Alta Pace MD is Hospitalizing Provider. tw4 05:55 No provider procedures requiring assistance completed. Patient admitted, IV remains in ao place. Administered Medications: 02:57 Drug: hydrALAZINE 10 mg Route: IV; Rate: bolus; Site: left antecubital; ao Outcome: 04:01 Decision to Hospitalize by Provider. tw4 05:56 Admitted to Tele accompanied by nurse, room 430. ao 05:56 Condition: stable 05:56 Instructed on the need for admit. 05:57 Patient left the ED. ao Signatures: Dispatcher [employer] EDJayla Nath, RN RN aa1 Dorothy Connor ds1 Dionna Vidal Alex, RN RN ao Yonis Edward MD MD tw4 Corrections: (The following items were deleted from the chart) 02:26 02:23 Presenting complaint: Patient states: SOB, abd pain, and swelling in feet since aa1 last night aa1 02:27 02:23 Acuity: FERNANDA 3 aa1 aa1
[2017-10-21] MEDS ORDERED: ONDANSETRON 4 MG/2 ML VIAL IV PRN (05:02)
[2017-10-21] MEDS ORDERED: MORPHINE 2 MG/ML SYR IV PRN (05:02)
[2017-10-21] MEDS ORDERED: ACETAMINOPHEN 500 MG TAB PO PRN (05:02)
[2017-10-21] MEDS ORDERED: FUROSEMIDE 40 MG/4 ML VIAL IV ONE (05:04)
[2017-10-21 05:09] LABS: Arterial Blood Carboxyhemoglob 1.3 % (0-1.5); Blood Gas Oxyhemoglobin 88.6 % (94-97); Blood O2 Saturation 91.1 % (92-98.5)
--- NOTE | 2017-10-21 05:13 | P.HP ---
Certification for Inpatient Patient admitted to: Inpatient With expected LOS: >2 Midnights Patient will require the following post-hospital care: None Practitioner: I am a practitioner with admitting privileges, knowledge of patient current condition, hospital course, and medical plan of care. Services: Services provided to patient in accordance with Admission requirements found in Title 42 Section 412.3 of the Code of Federal Regulations Patient History Date of Service: 10/21/17 Reason for admission: Respiratory distress History of Present Illness: Patient is a 42-year-old gentleman who came into the hospital with respiratory distress. Patient has end-stage renal disease but has not been able to get dialysis. He comes into the hospital repeatedly and is discharge after being dialyze. However he does not have any place to going he becomes short of breath a few days later. He requires readmission and urgent to emergent hemodialysis. Patient's prognosis is poor a less he is able to get hemodialysis. He will be admitted to the hospital for hemodialysis. Allergies No Known Allergies Allergy (Verified 08/06/17 01:36) Home Medications: Calcitrol [Rocaltrol*] 0.5 mcg PO DAILY #30 cap 08/12/17 Cholecalciferol (Vitamin D3) [Vitamin D 5,000 IU Cap*] 5,000 unit PO DAILY #30 cap 08/12/17 Hydralazine HCl [Apresoline] 100 mg PO TID #90 tablet 08/12/17 Nifedipine [Procardia Xl] 90 mg PO BID #60 tab.er.24 08/12/17 Ramipril [Altace] 10 mg PO DAILY #30 capsule 08/12/17 Sevelamer Carbonate [Renvela*] 1,600 mg PO TIDWM #90 tablet 08/12/17 Metoprolol Tartrate [Lopressor*] 100 mg PO BID #60 tab 10/02/17 Terazosin HCl [Hytrin] 10 mg PO BID 10/13/17 - Past Medical/Surgical History Diabetic: No -: Hypertension -: End-stage renal disease -: Diastolic CHF -: Anemia of chronic disease -: Thrombocytopenia -: Left foot sx Psychosocial/ Personal History: The patient is single. He has 9 children. He does not work. He recently got out of half-way in May of 2016. - Family History Mother Medical History: Heart disease, Hypertension, Kidney disease - Social History Alcohol use: No CD- Drugs: No Caffeine use: Yes Review of Systems 10-point ROS is otherwise unremarkable Physical Examination - Vital Signs Temperature: 98 F Blood Pressure: 190/110 Pulse: 90 Respirations: 28 Pulse Ox (%): 90 - Physical Exam General: Alert, In no apparent distress, Oriented x3 HEENT: Atraumatic, PERRLA, Mucous membr. moist/pink, EOMI, Sclerae nonicteric Neck: Supple, 2+ carotid pulse no bruit, No LAD, Without JVD or thyroid abnormality Respiratory: Clear to auscultation bilaterally, Normal air movement Cardiovascular: Regular rate/rhythm, Normal S1 S2, No murmurs Gastrointestinal: Normal bowel sounds, Soft and benign, Non-distended, No tenderness Musculoskeletal: No clubbing, No tenderness, Swelling Integumentary: No rashes Neurological: Normal gait, Normal speech, Normal strength at 5/5 x4 extr, Normal tone, Sensation intact, Cranial nerves 3-12 intact, Normal affect Lymphatics: No axilla or inguinal lymphadenopathy - Studies Laboratory Data (last 24 hrs) 10/21/17 02:45: PT 11.8, INR 1.00, APTT 28.5 10/21/17 02:45: B-Natriuretic Peptide 6980 H 10/21/17 02:32: WBC 5.6 D, Hgb 8.3 L, Hct 26.1 L, Plt Count 181 D Assessment & Plan - Problems (Diagnosis) (1) End-stage renal disease Current Visit: Yes Status: Acute (2) Hypoxemia Current Visit: Yes Status: Acute (3) Acute pulmonary edema Onset Date: 05/13/17 Current Visit: No Status: Acute (4) Pulmonary edema Current Visit: No Status: Acute Qualifiers: Chronicity: acute Qualified Code(s): J81.0 - Acute pulmonary edema (5) HTN (hypertension) Current Visit: No Status: Chronic Qualifiers: Hypertension type: essential hypertension Qualified Code(s): I10 - Essential (primary) hypertension - Plan Plan: 1. Nephrology consultation 2. Hemodialysis 3. IV diuretics 4. Strict blood pressure control 5. Patient states he has contacted social sciences chair but is waiting for a return call. He has had multiple Re admissions for similar complaints. He will be admitted to the hospital for further evaluation 6. GI and DVT prophylaxis - Advance Directives Does patient have a Living Will: No Does patient have a Durable POA for Healthcare: Yes - Code Status/Comfort Care Code Status Assessed: Yes Code Status: Full Code Critical Care: No Time Spent Managing PTS Care (In Minutes): 50
[2017-10-21] MEDS ORDERED: Morphine 2 MG/2 ML SYR IV PRN (07:03)
[2017-10-21] MEDS: SEVELAMER CARBONATE 800 MG TABLET PO SCH ×3 (07:21→17:12)
[2017-10-21 08:03] LABS: Albumin 3.9 g/dL (3.2-5.5); Bilirubin Direct 0.1 mg/dL (0-0.2); Bilirubin Total 0.7 mg/dL (0.3-1.2); CKMB Creatine Kinase MB 5.1 ng/ml (0.3-4.0); Magnesium 1.9 mg/dL (1.8-2.5); Potassium 5.5 mEq/L (3.6-5.0)
[2017-10-21] MEDS: SOD POLYSTYREN SUL 15 GM/60 ML UCUP PO ONE ×2 (08:16→08:43)
[2017-10-21] MEDS: CALCITROL 0.25 MCG CAP PO SCH (08:46)
[2017-10-21] MEDS: VITAMIN D 5,000 UNIT CAP PO SCH (08:46)
--- NOTE | 2017-10-21 08:57 | RAD REPORT ---
EXAM DESCRIPTION: RAD - Chest Single View - 10/21/2017 2:52 am CLINICAL HISTORY: Shortness of breath. COMPARISON: 10/13/2017 FINDINGS: Portable technique limits examination quality. Bilateral pulmonary opacities, greater on the right, appear mildly progressive since the comparative study. The heart is mildly enlarged in size. Right-sided venous catheter its tip in the SVC. No displ aced fractures. IMPRESSION: Mild worsening in lung aeration since comparative study.
[2017-10-21] MEDS: METOPROLOL TAR 50 MG TAB PO SCH ×3 (09:00→22:40)
[2017-10-21] MEDS: TERAZOSIN HCL 5 MG CAP PO SCH ×3 (09:00→22:41)
[2017-10-21] MEDS: HYDRALAZINE HCL 25 MG TABLET PO SCH ×3 (09:00→22:40)
--- NOTE | 2017-10-21 13:42 | P.PN ---
Subjective Date of Service: 10/21/17 Primary Care Provider: None; Nephrology-Dr. Lomeli Chief Complaint: Respiratory distress Subjective: Other (Edema to the lower ext. Feels weak. SOB is slightly improved. ) Physical Examination - Vital Signs Temperature: 99.6 F Blood Pressure: 207/128 Pulse: 95 Respirations: 18 Pulse Ox (%): 98 - Physical Exam General: Alert, In no apparent distress, Oriented x3, Cooperative HEENT: Atraumatic Neck: Supple Respiratory: Diminished (to the bases bilaterally) Cardiovascular: Normal pulses, Regular rate/rhythm Gastrointestinal: Normal bowel sounds, Soft and benign, Non-distended Musculoskeletal: No tenderness, No warmth Integumentary: Tenderness/swelling (1-2 pluss pitting edema to the lower ext. ) Neurological: Normal speech, Normal strength at 5/5 x4 extr, Normal tone - Studies Laboratory Data (last 24 hrs) 10/21/17 02:45: PT 11.8, INR 1.00, APTT 28.5 10/21/17 02:45: B-Natriuretic Peptide 6980 H 10/21/17 02:32: WBC 5.6 D, Hgb 8.3 L, Hct 26.1 L, Plt Count 181 D Medications List Reviewed: Yes Assessment & Plan - Problems (Diagnosis) (1) End-stage renal disease Onset Date: 10/21/17 Current Visit: Yes Status: Acute Plan: Patient needing dialysis. It has been over a week since his last dialysis. He is still waiting on confirmation from insurance to see if they will approve for him to get dialysis as outpatient. Nephrology consulted. Await recommendations. Will have social service help in the status of his outpatient dialysis approval. (2) Pulmonary edema Onset Date: 10/21/17 Current Visit: Yes Status: Acute Plan: Will provide Lasix. Will need dialysis soon to help with this. Will maintain oxygen above 90%. Qualifiers: Chronicity: acute Qualified Code(s): J81.0 - Acute pulmonary edema (3) HTN (hypertension) Onset Date: 10/21/17 Current Visit: Yes Status: Chronic Plan: Will restart his multiple meds. Will need dialysis for improvement. Qualifiers: Hypertension type: essential hypertension Qualified Code(s): I10 - Essential (primary) hypertension (4) Anemia Onset Date: 10/01/17 Current Visit: No Status: Chronic Plan: Overall stable. Will monitor Qualifiers: Anemia type: due to chronic kidney disease Chronic kidney disease stage: on chronic dialysis Qualified Code(s): N18.6 - End stage renal disease; D63.1 - Anemia in chronic kidney disease; Z99.2 - Dependence on renal dialysis (5) Hyperkalemia Onset Date: 09/13/17 Current Visit: No Status: Acute Plan: Kaxeylate given. Lasix also given. Will get dialysis today. (6) Metabolic acidosis Onset Date: 10/01/17 Current Visit: No Status: Acute Plan: Will need dialysis. Will monitor lab. Discharge Plan: Home Plan to discharge in: 48 Hours Time Spent Managing Pts Care (In Minutes): 55
[2017-10-21] MEDS: NIFEDIPINE XL 90 MG TABLET PO SCH ×2 (13:54→22:42)
[2017-10-21] MEDS: FUROSEMIDE 40 MG/4 ML VIAL IV SCH ×2 (13:54→17:12)
--- NOTE | 2017-10-21 14:43 | EKG ---
Test Date: 2017-10-21 Test Time: 03:04:40 Hygiene Teacher: [place] MEASUREMENT RESULTS: Intervals: Rate: 105 [place]: 142 QRSD: 86 QT: 370 QTc: 489 [place]: P: 75 [place]: 142 QRS: 19 T: 33 INTERPRETIVE STATEMENTS: Sinus tachycardia Otherwise normal ECG Compared to ECG 10/13/2017 07:45:38 No significant changes Electronically Signed On 10-21-17 14:43:27 CDT by Naveen Vasquez
[2017-10-21] MEDS ORDERED: MANNITOL 25% 12.5 GM/50 ML VIAL IV PRN (16:01)
[2017-10-21] MEDS ORDERED: NA CHLORIDE 0.9% 1,000 ML IV PRN (16:01)
[2017-10-21] MEDS ORDERED: LABETALOL 20 MG/4ML SYRINGE IV PRN (16:05)
[2017-10-21] MEDS ORDERED: EPOETIN ALFA 10,000 UNIT/ML VIAL IV SCH (16:15)
[2017-10-21] MEDS ORDERED: ALBUMIN HUMAN 25% 50 ML IV SCH (17:00)
--- NOTE | 2017-10-21 21:43 | P.CNS ---
Date of Consult: 10/21/17 Reason for Consult: ESRD Requesting Physician: Jeferson Mccrary Primary Care Provider: None; Nephrology-Dr. Lomeli Chief Complaint: Respiratory distress History of Present Illness: Patient is a 42-year-old gentleman who came into the hospital with respiratory distress. Patient has end-stage renal disease but has not been able to get dialysis. He comes into the hospital repeatedly and is discharge after being dialyze. However he does not have any place to going he becomes short of breath a few days later. He requires readmission and urgent to emergent hemodialysis. Patient's prognosis is poor a less he is able to get hemodialysis. He will be admitted to the hospital for hemodialysis. 03:52 This 42 yrs old Black Male presents to ER via Ambulatory with complaints of Shortness tw4 Of Breath. 03:52 The patient has shortness of breath at rest. Onset: The symptoms/episode began/occurred tw4 2 day(s) ago. Duration: The symptoms are continuous, and are steadily getting worse. The patient's shortness of breath is aggravated by exertion. Associated signs and symptoms: The patient has no apparent associated signs or symptoms. Severity of symptoms: At their worst the symptoms were moderate in the emergency department the symptoms are unchanged. The patient has not experienced similar symptoms in the past. Allergies No Known Allergies Allergy (Verified 08/06/17 01:36) Home medications list reviewed: Yes Home Medications: Calcitrol [Rocaltrol*] 0.5 mcg PO DAILY #30 cap 08/12/17 Cholecalciferol (Vitamin D3) [Vitamin D 5,000 IU Cap*] 5,000 unit PO DAILY #30 cap 08/12/17 Hydralazine HCl [Apresoline] 100 mg PO TID #90 tablet 08/12/17 Nifedipine [Procardia Xl] 90 mg PO BID #60 tab.er.24 08/12/17 Sevelamer Carbonate [Renvela*] 1,600 mg PO TIDWM #90 tablet 08/12/17 Metoprolol Tartrate [Lopressor*] 100 mg PO BID #60 tab 10/02/17 - Past Medical/Surgical History Diabetic: No -: Hypertension -: End-stage renal disease -: Diastolic CHF -: Anemia of chronic disease -: Thrombocytopenia -: Left foot sx Psychosocial/ Personal History: The patient is single. He has 9 children. He does not work. He recently got out of detention in May of 2016. - Family History Mother Medical History: Heart disease, Hypertension, Kidney disease - Social History Alcohol use: No CD- Drugs: No Caffeine use: No Place of Residence: Home Review of Systems 10-point ROS is otherwise unremarkable General: Weakness, Malaise Physical Examination Temp Pulse Resp BP Pulse Ox 99.1 F 75 20 204/128 H 99 10/21/17 16:00 10/21/17 18:53 10/21/17 16:00 10/21/17 18:53 10/21/17 16:00 General: Oriented x3 HEENT: Atraumatic Neck: Supple Respiratory: Clear to auscultation bilaterally Cardiovascular: Edema Gastrointestinal: Soft and benign, Non-distended Musculoskeletal: No clubbing, No contractures Integumentary: No rashes, No cyanosis Neurological: Normal speech Laboratory Data (last 24 hrs) 10/21/17 06:13: Sodium 135, Potassium 5.5 H, BUN 120 H D, Creatinine 18.96 H* D , Glucose 102, Magnesium 1.9, Total Bilirubin 0.7, AST 68 H, ALT 57, Alkaline Phosphatase 80 10/21/17 02:45: PT 11.8, INR 1.00, APTT 28.5 10/21/17 02:45: B-Natriuretic Peptide 6980 H 10/21/17 02:32: WBC 5.6 D, Hgb 8.3 L, Hct 26.1 L, Plt Count 181 D Imagings Data: EXAM DESCRIPTION: RAD - Chest Single View - 10/21/2017 2:52 am CLINICAL HISTORY: Shortness of breath. COMPARISON: 10/13/2017 FINDINGS: Portable technique limits examination quality. Bilateral pulmonary opacities, greater on the right, appear mildly progressive since the comparative study. The heart is mildly enlarged in size. Right-sided venous catheter its tip in the SVC. No displaced fractures. IMPRESSION: Mild worsening in lung aeration since comparative study. Conclusions/Impression: A/ ESRD on HD. HTN with CKD. Diastolic CHF, chronic. Anemia in CKD. GRAY/ Secondary HyperPTH. P/ Continue current POC and Medications. Acute HD today and tomorrow as ordered. Restart home medications. Give Epo. No NSAIDs. AM labs. Daily weight. Thank you kindly for the consultation.
[2017-10-21 21:44] VITALS: O2SAT 97
[2017-10-22 04:52] LABS: Albumin 3.2 g/dL (3.2-5.5); Bilirubin Total 0.6 mg/dL (0.3-1.2); Magnesium 1.9 mg/dL (1.8-2.5); Potassium 3.4 mEq/L (3.6-5.0); Protein, Total 5.5 g/dL (6.0-8.3)
[2017-10-22 04:58] LABS: Absolute Lymphocytes (CBC) 0.7 K/uL (0.7-4.9); Absolute Monocytes 0.4 K/uL (0.1-1.3); Absolute Neutrophil 1.5 K/uL (1.8-8.0); Basophils % 1.5 % (0-1.3); Eosinophils % 4.6 % (0-4.4); Hematocrit 22.3 % (39.6-49.0); Lymphocytes % 25.4 % (15.3-44.8); MCH 27.3 pg (27.0-35.0); MCV 82.1 fL (80-100); MPV 7.5 fL (7.6-11.3); Monocytes % 14.8 % (3.3-12.3); RBC Red Blood Cell Count 2.72 M/uL (4.33-5.43)
[2017-10-22 05:05] VITALS: BMI 24.7
[2017-10-22 05:48] LABS: Blood Morphology Comment NOTED (NOT SEEN); Hypochromasia 1+; Platelet Estimate ADEQ; Urine White Blood Cell Casts OK
--- NOTE | 2017-10-22 07:11 | RAD REPORT ---
EXAM DESCRIPTION: RAD - Chest Single View - 10/22/2017 6:30 am CLINICAL HISTORY: Pulmonary edema COMPARISON: October 21 TECHNIQUE: AP portable chest image was obtained 0617 hours . FINDINGS: Lung volumes are similar to the prior study. The mid and lower lung field airspace opacifi cation has substantially improved. There is minimal remnant airspace disease. Heart remains mildly en larged and central vasculature is mildly prominent but improved. Trachea is midline. Double-lumen kaushal lysis catheter is in place. No measurable pleural effusion and no pneumothorax. No gross bony abnorma lity seen. No acute aortic findings suspected. IMPRESSION: Substantial improvement in the pulmonary edema pattern. Heart size is prominent but probably improved slightly. Vasculature has decreased in prominence.
[2017-10-22] MEDS: SEVELAMER CARBONATE 800 MG TABLET PO SCH ×2 (08:18→12:48)
[2017-10-22] MEDS: VITAMIN D 5,000 UNIT CAP PO SCH (08:42)
[2017-10-22] MEDS: FUROSEMIDE 40 MG/4 ML VIAL IV SCH (08:42)
[2017-10-22] MEDS: CALCITROL 0.25 MCG CAP PO SCH (08:44)
[2017-10-22] MEDS: TERAZOSIN HCL 5 MG CAP PO SCH ×2 (08:48→14:40)
[2017-10-22] MEDS: HYDRALAZINE HCL 25 MG TABLET PO SCH ×2 (08:48→14:40)
[2017-10-22] MEDS: NIFEDIPINE XL 90 MG TABLET PO SCH ×2 (08:49→14:39)
[2017-10-22] MEDS: METOPROLOL TAR 50 MG TAB PO SCH ×2 (08:49→14:40)
[2017-10-22 15:06] LABS: Hematocrit 25.1 % (39.6-49.0)
--- NOTE | 2017-10-22 15:33 | P.DS ---
Admission Date: 10/21/17 Discharge Date: 10/22/17 Primary Care Provider: None; Nephrology-Dr. Lomeli Disposition: ROUTINE DISCHARGE Discharge Condition: FAIR Reason for Admission: Respiratory distress Consultations: Nephrology Dr. Lomeli - Problems (1) End-stage renal disease Onset Date: 10/21/17 Current Visit: Yes Status: Acute (2) Pulmonary edema Onset Date: 10/21/17 Current Visit: Yes Status: Acute Qualifiers: Chronicity: acute Qualified Code(s): J81.0 - Acute pulmonary edema (3) HTN (hypertension) Onset Date: 10/21/17 Current Visit: Yes Status: Chronic Qualifiers: Hypertension type: essential hypertension Qualified Code(s): I10 - Essential (primary) hypertension (4) Hyperkalemia Onset Date: 09/13/17 Current Visit: No Status: Acute (5) Anemia Onset Date: 09/13/17 Current Visit: No Status: Chronic Qualifiers: Anemia type: due to chronic kidney disease Chronic kidney disease stage: on chronic dialysis Qualified Code(s): N18.6 - End stage renal disease; D63.1 - Anemia in chronic kidney disease; Z99.2 - Dependence on renal dialysis Brief History of Present Illness: From H and P Patient is a 42-year-old gentleman who came into the hospital with respiratory distress. Patient has end-stage renal disease but has not been able to get dialysis. He comes into the hospital repeatedly and is discharge after being dialyze. However he does not have any place to going he becomes short of breath a few days later. He requires readmission and urgent to emergent hemodialysis. Patient's prognosis is poor a less he is able to get hemodialysis. He will be admitted to the hospital for hemodialysis. Hospital Course: Patient is a 42-year-old male with past medical history of end-stage renal disease on hemodialysis who had not had dialysis for over a week came in with the shortness of breath. Patient was found to have fluid overload pulmonary edema and effusion. Patient was seen by nephrology and had [id number] dialysis. Patient's condition improved. His repeat chest x-ray showed resolution of the effusion. Patient was no longer on supplemental oxygen and able to ambulate without getting hypoxic 97% on room air. Patient was then cleared for discharge from nephrology standpoint. Patient's insurance still pending therefore cannot have dialysis chair time setup. Patient was treated for the hyperkalemia which corrected. Patient was then cleared for discharge and sent home in a stable condition Vital Signs/Physical Exam: Temp Pulse Resp BP Pulse Ox 99.8 F 85 16 193/97 H 97 10/22/17 07:49 10/22/17 14:40 10/22/17 07:49 10/22/17 14:40 10/22/17 07:49 Other Physical/Emotional Findings: FOR PHYSICAL EXAM FINDINGS PLEASE SEE PROGRESS NOTE DICTATED ON THE DAY OF DISCHARGE Laboratory Data at Discharge: WBC 2.8 K/uL (4.3-10.9) L D 10/22/17 03:45 Hgb 8.1 g/dL (13.6-17.9) L 10/22/17 14:54 Hct 25.1 % (39.6-49.0) L 10/22/17 14:54 Plt Count 145 K/uL (152-406) L 10/22/17 03:45 PT 11.8 SECONDS (9.5-12.5) 10/21/17 02:45 INR 1.00 10/21/17 02:45 APTT 28.5 SECONDS (24.3-36.9) 10/21/17 02:45 Sodium 138 mEq/L (135-145) 10/22/17 03:45 Potassium 3.4 mEq/L (3.6-5.0) L 10/22/17 03:45 BUN 78 mg/dL (6-20) H D 10/22/17 03:45 Creatinine 14.07 mg/dL (0.61-1.24) H* D 10/22/17 03:45 Glucose 104 mg/dL (65-120) 10/22/17 03:45 Magnesium 1.9 mg/dL (1.8-2.5) 10/22/17 03:45 Total Bilirubin 0.6 mg/dL (0.3-1.2) 10/22/17 03:45 AST 32 IU/L (10-42) 10/22/17 03:45 ALT 38 IU/L (10-60) 10/22/17 03:45 Alkaline Phosphatase 61 IU/L (42-121) 10/22/17 03:45 B-Natriuretic Peptide 6980 pg/ml (<=100) H 10/21/17 02:45 Home Medications: Calcitrol [Rocaltrol*] 0.5 mcg PO DAILY #30 cap 08/12/17 Cholecalciferol (Vitamin D3) [Vitamin D 5,000 IU Cap*] 5,000 unit PO DAILY #30 cap 08/12/17 Hydralazine HCl [Apresoline] 100 mg PO TID #90 tablet 08/12/17 Nifedipine [Procardia Xl] 90 mg PO BID #60 tab.er.24 08/12/17 Sevelamer Carbonate [Renvela*] 1,600 mg PO TIDWM #90 tablet 08/12/17 Metoprolol Tartrate [Lopressor*] 100 mg PO BID #60 tab 10/02/17 Furosemide [Lasix] 40 mg PO DAILY #30 tab 10/22/17 Terazosin HCl [Hytrin*] 10 mg PO BID #60 cap 10/22/17 New Medications: Furosemide [Lasix] 40 mg PO DAILY #30 tab Terazosin HCl [Hytrin*] 10 mg PO BID #60 cap Patient Discharge Instructions: Establish care with primary care physician. Follow up with casting supervisor in 1 week. return to ER for worsening condition Diet: Renal Activity: Ad lisa Time spent managing pt's care (in minutes): 41
[2017-10-22 16:25] VITALS: BP 170/90
[2017-10-22 16:57] VITALS: TEMP 98.2
--- NOTE | 2017-10-22 20:52 | PN ---
Date of Progress Note: 10/22/2017 Subjective: The patient seen and examined, chart reviewed and case discussed with RN. The patient is going for hemodialysis again today. Treatment plan explained, all questions answered. Review of Systems: Negative except as above. Medications: Reviewed. Physical Examination: Vital Signs: Temperature 99.8, heart rate 80, blood pressure 147/89, respirations 16, O2 97% on room air. General: Awake, alert, oriented x3, not in any acute distress. CV: S1, S2. No murmurs. Regular rate and rhythm. Peripheral pulses present. Respiratory: Diminished breath sounds. No wheezing or crackles. Gastrointestinal: Abdomen is soft, nontender, nondistended. Positive bowel sounds. Extremities: No clubbing, cyanosis, peripheral edema is present. Neurologic: Nonfocal. Laboratory Data: Sodium 138, potassium 3.4, chloride 99, CO2 28, BUN 78, creatinine 2.7, glucose 104, calcium 7.6, magnesium 1.9. Hepatitis panel pending. INR 1. WBC 2.8, H and H 7.4, 22.3. Platelets 145, neutrophils 83.7. Chest x-ray, personally reviewed, shows substantial improvement in pulmonary edema pattern. Heart size prominent but probably improved slightly. Vasculature has decreased in prominence. Assessment And Plan: A 42-year-old male with known pulmonary edema likely secondary to end-stage renal disease, currently requiring oxygen. We will wean off as tolerated. Chest x-ray shows improvement with dialysis. 1. End-stage renal disease. The patient has not had dialysis for 1 week and is still waiting on confirmation from insurance to approve dialysis as outpatient. Appreciate Nephrology input. The patient was on dialysis again today. 2. Essential hypertension, stable. Resume home medications. 3. Anemia of chronic disease. H and H dropped slightly. We will continue to monitor. Transfuse if less than 7. 4. Hyperkalemia, corrected. We will continue to monitor. 5. Metabolic acidosis. We will continue to monitor, improving. Plan: Continue dialysis. DM Voice ID: [id number] Report ID: [id number] KIARA
[2017-10-23 14:04] LABS: HBsAG Nonreactive (Nonreactive)
== END 2017-10-22 16:32 | disposition home or self-care (01) | DRG 291 ==
LOC: ER 02:16 → 4TH 05:29 → OBSVTOIN 14:37
PROVIDERS: ADMIT Hospitalist; ATTEND Hospitalist
PROC: 5A1D70Z Performance of Urinary Filtration, Intermittent, Less than 6 Hours Per Day (ICD-10-PCS; principal; 2017-10-21)
PROC: 5A1D70Z Performance of Urinary Filtration, Intermittent, Less than 6 Hours Per Day (ICD-10-PCS; 2017-10-22)
DX: I13.2 Hypertensive heart and chronic kidney disease with heart failure and with stage 5 chronic kidney disease, or end stage renal disease (principal); N18.6 End stage renal disease; I50.32 Chronic diastolic (congestive) heart failure; E87.2 Acidosis; R09.02 Hypoxemia; E87.5 Hyperkalemia; D63.1 Anemia in chronic kidney disease
CPT/HCPCS: 36415; 71045; 80048; 80053; 80076; 82550; 82553; 82805; 83735; 83880; 84484; 85014; 85018; 85025; 85610; 85730; 86317; 86704; 86706; 87340; 90935; 93005; 94660; 96374; 99285; G0378; J0360; J2270; Q4081

== ENCOUNTER 2017-11-04 01:55 | Observation (INO) | payer OTHER ==
[2017-11-04] MEDS ORDERED: ASPIRIN 81 MG CHEWABLE TABLET ONE (02:22)
[2017-11-04 02:33] LABS: Absolute Lymphocytes (CBC) 0.9 K/uL (0.7-4.9); Absolute Monocytes 0.5 K/uL (0.1-1.3); Absolute Neutrophil 3.6 K/uL (1.8-8.0); Basophils % 0.8 % (0-1.3); Eosinophils % 4.2 % (0-4.4); Hematocrit 27.7 % (39.6-49.0); Lymphocytes % 17.4 % (15.3-44.8); MCH 27.1 pg (27.0-35.0); MCV 85.7 fL (80-100); MPV 8.4 fL (7.6-11.3); Monocytes % 8.6 % (3.3-12.3); RBC Red Blood Cell Count 3.24 M/uL (4.33-5.43)
[2017-11-04 02:47] LABS: Protime INR 1.04
[2017-11-04 02:48] LABS: Potassium 3.9 mEq/L (3.6-5.0)
[2017-11-04 03:10] LABS: Albumin 3.6 g/dL (3.2-5.5); Bilirubin Direct 0.1 mg/dL (0-0.2); Bilirubin Total 0.5 mg/dL (0.3-1.2); Magnesium 1.9 mg/dL (1.8-2.5)
--- NOTE | 2017-11-04 04:32 | ER ---
Nurse's Notes [facility] Name: Jermaine Rivera Age: 42 yrs Sex: Male : 1975 Arrival Date: 11/04/2017 Time: 01:56 Bed 2 Private MD: Fredrick Lomeli Diagnosis: acute dyspnea;hypertensive emergency;CHF Presentation: 11/04 02:11 Presenting complaint: Patient states: he is having SOB since approx 1400 yesterday bb afternoon and he has swelling in both feet, pt is a dialysis pt and had dialysis on Saturday. Transition of care: patient was not received from another setting of care. Onset of symptoms was November 03, 2017 at 14:00. Risk Assessment: Do you want to hurt yourself or someone else? Patient reports no desire to harm self or others. Initial Sepsis Screen: Does the patient meet any 2 criteria? No. Patient's initial sepsis screen is negative. Does the patient have a suspected source of infection? No. Patient's initial sepsis screen is negative. Care prior to arrival: None. 02:11 Method Of Arrival: Wheelchair bb 02:11 Acuity: FERNANDA 1 bb Triage Assessment: 02:45 General: Behavior is cooperative. Respiratory: Reports shortness of breath at rest ak1 Onset: The symptoms/episode began/occurred this morning, the patient has moderate shortness of breath. Historical: - Allergies: 02:18 No Known Allergies; bb - Home Meds: 02:18 furosemide 40 mg Oral tab 1 tab once daily [Active]; calcitriol 0.5 mcg oral cap 1 cap bb once daily [Active]; terazosin 5 mg oral cap 2 caps twice a day [Active]; hydralazine 100 mg Oral tab 1 tab 3 times per day [Active]; sevelamer HCl oral oral [Active]; nifedipine 90 mg Oral TbER 1 tab twice a day [Active]; metoprolol tartrate 50 mg Oral tab 2 tabs 2 times per day [Active]; - PMHx: 02:18 Dialysis; Hypertension; Renal Disease; bb - Immunization history:: Adult Immunizations up to date. - Ebola Screening: : No symptoms or risks identified at this time. - Social history:: Smoking status: unknown. Screenin:44 Abuse screen: Denies threats or abuse. Denies injuries from another. Nutritional ak1 screening: No deficits noted. Tuberculosis screening: No symptoms or risk factors identified. Fall Risk None identified. Assessment: 02:44 General: Appears distressed, uncomfortable. Pain: Denies pain. Neuro: No deficits ak1 noted. Cardiovascular: Rhythm is regular. Respiratory: Airway is patent Respiratory effort is labored, Breath sounds are clear. GI: No signs and/or symptoms were reported involving the gastrointestinal system. : No signs and/or symptoms were reported regarding the genitourinary system. EENT: No signs and/or symptoms were reported regarding the EENT system. Derm: Reports swelling to bilateral feet. Musculoskeletal: Swelling present in right leg and left leg. 03:27 Reassessment: Pt resting with eyes closed, respirations even and unlabored, chest ea expansions even and symmetrical. No s/s of pain or discomfort noted at this time. Pt remains on bipap, tolerating well. 04:10 Reassessment: Resting with eyes closed, respirations even and unlabored, chest ea expansions even and symmetrical. No s/s of pain or discomfort noted at this time. Pt remains on BiPAP, tolerating well. 05:09 Reassessment: Patient appears in no apparent distress at this time. No changes from ak1 previously documented assessment. Vital Signs: 02:18 BP 242 / 148; Pulse 105; Resp 24 S; Temp 98.6(O); Pulse Ox 83% on R/A; Weight 90.72 kg bb (R); Height 6 ft. 1 in. (185.42 cm) (R); Pain 2/10; 02:38 BP 232 / 157; Pulse 93; Resp 30; Pulse Ox 98% on 60% BiPAP; ak1 03:22 BP 222 / 144; Pulse 104; Resp 28; Pulse Ox 92% on 60% BiPAP; ak1 03:44 BP 217 / 140; Pulse 101; Resp 24; Pulse Ox 97% on 60% BiPAP; ak1 04:25 BP 208 / 133; Pulse 96; Resp 26; Temp 98.6; Pulse Ox 100% on 60% BiPAP; ak1 05:08 BP 215 / 137; Pulse 95; Resp 22; Temp 98.6; Pulse Ox 100% on 60% BiPAP; ak1 05:47 BP 186 / ???; Pulse 131; Resp 21; Pulse Ox 98% on 60% BiPAP; cb2 07:07 BP 184 / 128; Pulse 84; Resp 16; Pulse Ox 97% on 60% BiPAP; sv 02:18 Body Mass Index 26.39 (90.72 kg, 185.42 cm) bb ED Course: 01:56 Patient arrived in ED. ds1 01:56 Fredrick Lomeli DO is Private Physician. ds1 02:12 Triage completed. bb 02:12 Satish Garcia MD is Attending Physician. wa 02:17 Initial lab(s) drawn, by me, sent to lab. EKG done, by ED staff, reviewed by Satish Garcia MD. Inserted saline lock: 20 gauge in left antecubital area, using aseptic technique. Blood collected. O2 via Bipap - IPap 12, EPap 6, rate 12, 60% oxygen. 02:18 Arm band placed on Patient placed in an exam room, on a stretcher, on oxygen, on bb quality assurance monitor, on pulse oximetry, pt placed on Bipap 100% oxygen. 02:22 X-ray completed. Portable x-ray completed in exam room. Patient tolerated procedure jw2 well. 02:23 XRAY CXR (1 view) In Process Unspecified. EDMS 02:43 No provider procedures requiring assistance completed. ak1 02:46 Patient has correct armband on for positive identification. Bed in low position. Call ak1 light in reach. Side rails up X 1. child monitor on. Pulse ox on. NIBP on. 03:20 Notified ED physician of a critical lab result(s). 10.02 creatin. ak1 04:25 Laura Helms, RN is Primary Nurse. ak1 04:31 Alta Pace MD is Hospitalizing Provider. wa 05:07 Patient admitted, IV remains in place. ak1 Administered Medications: 02:16 Drug: Nitroglycerin 0.4 mg Route: Sublingual; ak1 03:10 Follow up: Response: Blood pressure is lowered ak1 02:20 Drug: Aspirin Chewable Tablet 324 mg Route: PO; ak1 03:11 Follow up: Response: No adverse reaction ak1 Outcome: 04:32 Decision to Hospitalize by Provider. wa 05:08 Instructed on the need for admit. ak1 05:08 Condition: improved ak1 07:36 Admitted to Tele accompanied by tech, via stretcher, room 207, with oxygen, with chart, sv Report called to Fozia SAEED 07:46 Patient left the ED. Signatures: Dispatcher [employer] EDSwati Enamorado RN Dorothy Ramos ds1 Stefany Luis RN RN bb Krenek, Amber, RN RN ak1 Alyssa Mejia jw2 Paxton Christian Elena, RN RN ea Appiah, William, MD MD wa Corrections: (The following items were deleted from the chart) 02:20 02:11 Acuity: FERNANDA 2 bb sharri
--- NOTE | 2017-11-04 04:32 | EDPHYS ---
Physician Documentation [facility] Name: Jermaine Rivera Age: 42 yrs Sex: Male : 1975 Arrival Date: 11/04/2017 Time: 01:56 Bed 2 Private MD: Fredrick Lomeli ED Physician Satish Garcia HPI: 11/04 02:25 This 42 yrs old Black Male presents to ER via Wheelchair with complaints of Shortness wa Of Breath. 02:25 The patient has shortness of breath at rest, and the patient has a history of ESRD and wa HTN. Onset: The symptoms/episode began/occurred yesterday. Duration: The symptoms are continuous, and are steadily getting worse. The patient's shortness of breath is aggravated by exertion, is alleviated by nothing. Associated signs and symptoms: Pertinent positives: lower extremity swelling, Pertinent negatives: chest pain, non-productive cough, productive cough, dizziness, fever. Severity of symptoms: At their worst the symptoms were moderate in the emergency department the symptoms are worse markedly. The patient has experienced similar episodes in the past, several times. The patient has not recently seen a physician. Historical: - Allergies: 02:18 No Known Allergies; bb - Home Meds: 02:18 furosemide 40 mg Oral tab 1 tab once daily [Active]; calcitriol 0.5 mcg oral cap 1 cap bb once daily [Active]; terazosin 5 mg oral cap 2 caps twice a day [Active]; hydralazine 100 mg Oral tab 1 tab 3 times per day [Active]; sevelamer HCl oral oral [Active]; nifedipine 90 mg Oral TbER 1 tab twice a day [Active]; metoprolol tartrate 50 mg Oral tab 2 tabs 2 times per day [Active]; - PMHx: 02:18 Dialysis; Hypertension; Renal Disease; bb - Immunization history:: Adult Immunizations up to date. - Ebola Screening: : No symptoms or risks identified at this time. - Social history:: Smoking status: unknown. ROS: 02:27 Constitutional: Negative for fever, chills, and weight loss, Eyes: Negative for injury, wa pain, redness, and discharge, ENT: Negative for injury, pain, and discharge, Neck: Negative for injury, pain, and swelling, Abdomen/GI: Negative for abdominal pain, nausea, vomiting, diarrhea, and constipation, Back: Negative for injury and pain, : Negative for injury, bleeding, discharge, and swelling, Skin: Negative for injury, rash, and discoloration, Neuro: Negative for headache, weakness, numbness, tingling, and seizure, Psych: Negative for depression, anxiety, suicide ideation, homicidal ideation, and hallucinations. 02:27 Cardiovascular: Positive for edema, Negative for chest pain, palpitations, paroxysmal nocturnal dyspnea. 02:27 Respiratory: Positive for shortness of breath, on exertion. Negative for cough. 02:27 MS/extremity: Positive for swelling, both legs. Exam: 02:29 Constitutional: This is a well developed, well nourished patient who is awake, alert, wa and in no acute distress. Head/Face: Normocephalic, atraumatic. Eyes: Pupils equal round and reactive to light, extra-ocular motions intact. Lids and lashes normal. Conjunctiva and sclera are non-icteric and not injected. Cornea within normal limits. Periorbital areas with no swelling, redness, or edema. ENT: Nares patent. No nasal discharge, no septal abnormalities noted. Tympanic membranes are normal and external auditory canals are clear. Oropharynx with no redness, swelling, or masses, exudates, or evidence of obstruction, uvula midline. Mucous membranes moist. Neck: Trachea midline, no thyromegaly or masses palpated, and no cervical lymphadenopathy. Supple, full range of motion without nuchal rigidity, or vertebral point tenderness. No Meningismus. Chest/axilla: Normal chest wall appearance and motion. Nontender with no deformity. No lesions are appreciated. Abdomen/GI: Soft, non-tender, with normal bowel sounds. No distension or tympany. No guarding or rebound. No evidence of tenderness throughout. Back: No spinal tenderness. No costovertebral tenderness. Full range of motion. Skin: Warm, dry with normal turgor. Normal color with no rashes, no lesions, and no evidence of cellulitis. Neuro: Awake and alert, GCS 15, oriented to person, place, time, and situation. Cranial nerves II-XII grossly intact. Motor strength 5/5 in all extremities. Sensory grossly intact. Cerebellar exam normal. Normal gait. Psych: Awake, alert, with orientation to person, place and time. Behavior, mood, and affect are within normal limits. 02:29 Cardiovascular: Rate: tachycardic, Rhythm: regular, Heart sounds: normal, Edema: 2+ edema to level of left midcalf, left ankle, left foot, right midcalf, right ankle and right foot, JVD: is not appreciated. 02:29 Respiratory: mild respiratory distress is noted, Respirations: normal, Breath sounds: bilateral crackles auscultated, Respiratory rate: tachypneic Vital Signs: 02:18 BP 242 / 148; Pulse 105; Resp 24 S; Temp 98.6(O); Pulse Ox 83% on R/A; Weight 90.72 kg bb (R); Height 6 ft. 1 in. (185.42 cm) (R); Pain 2/10; 02:38 BP 232 / 157; Pulse 93; Resp 30; Pulse Ox 98% on 60% BiPAP; ak1 03:22 BP 222 / 144; Pulse 104; Resp 28; Pulse Ox 92% on 60% BiPAP; ak1 03:44 BP 217 / 140; Pulse 101; Resp 24; Pulse Ox 97% on 60% BiPAP; ak1 04:25 BP 208 / 133; Pulse 96; Resp 26; Temp 98.6; Pulse Ox 100% on 60% BiPAP; ak1 05:08 BP 215 / 137; Pulse 95; Resp 22; Temp 98.6; Pulse Ox 100% on 60% BiPAP; ak1 05:47 BP 186 / ???; Pulse 131; Resp 21; Pulse Ox 98% on 60% BiPAP; cb2 07:07 BP 184 / 128; Pulse 84; Resp 16; Pulse Ox 97% on 60% BiPAP; sv 02:18 Body Mass Index 26.39 (90.72 kg, 185.42 cm) MDM: 02:12 Patient medically screened. 02:31 Differential diagnosis: severely elevated BP in a pt with ESRD. consider fluid wa overload. r/o acute hypertensive emergency. Data reviewed: vital signs, nurses notes. Test interpretation: by ED physician or midlevel provider: EKG: HR 87. non-specific ST-T changes. 11/04 02:14 Order name: BMP; Complete Time: 03:11/04 02:14 Order name: BNP; Complete Time: 03:11/04 02:14 Order name: CBC with Diff; Complete Time: 03:11/04 02:14 Order name: CPK; Complete Time: 03:11/04 02:14 Order name: Hepatic Function; Complete Time: 03:11/04 02:14 Order name: Magnesium; Complete Time: 03:11/04 02:14 Order name: XRAY CXR (1 view) nj 11/04 02:14 Order name: PT-INR; Complete Time: 03:11/04 02:14 Order name: Troponin (emerg Dept Use Only); Complete Time: 03:11/04 02:14 Order name: EKG; Complete Time: 02:15 11/04 02:14 Order name: Cardiac monitoring; Complete Time: 02:11/04 03:10 Order name: BIPAP [facility] 11/04 02:14 Order name: EKG - Nurse/Tech; Complete Time: 02:17 11/04 02:14 Order name: IV Saline Lock; Complete Time: 02:17 11/04 02:14 Order name: Labs collected and sent; Complete Time: 02:11/04 02:14 Order name: O2 Per Protocol; Complete Time: 02: nj 11/04 02:14 Order name: O2 Sat Monitoring; Complete Time: 02:17 nj Administered Medications: 02:16 Drug: Nitroglycerin 0.4 mg Route: Sublingual; ak1 03:10 Follow up: Response: Blood pressure is lowered ak1 02:20 Drug: Aspirin Chewable Tablet 324 mg Route: PO; ak1 03:11 Follow up: Response: No adverse reaction ak1 Disposition: 11/04/17 04:32 Hospitalization ordered by Alta Pace for Inpatient Admission. Preliminary diagnosis are acute dyspnea, hypertensive emergency, CHF. - Bed requested for Telemetry/MedSurg (Inpatient). - Status is Inpatient Admission. sv - Condition is Stable. - Problem is an acute exacerbation. - Symptoms have improved. UTI on Admission? No Signatures: Dispatcher [employer] Swati Dial RN Cristel Shepard RN Stefany Villarreal RN RN bb Krenek, Amber, RN RN ak1 Satish Garcia MD MD nj Corrections: (The following items were deleted from the chart) 04:50 04:32 Hospitalization Ordered by Alta Pace MD for Inpatient Admission. Preliminary mw diagnosis is acute dyspnea; hypertensive emergency; CHF. Bed requested for Telemetry/MedSurg (Inpatient). Status is Inpatient Admission. Condition is Stable. Problem is an acute exacerbation. Symptoms have improved. UTI on Admission? No. wa 07:46 04:50 11/04/2017 04:32 Hospitalization Ordered by Alta Pace MD for Inpatient sv Admission. Preliminary diagnosis is acute dyspnea; hypertensive emergency; CHF. Bed requested for Telemetry/MedSurg (Inpatient). Status is Inpatient Admission. Condition is Stable. Problem is an acute exacerbation. Symptoms have improved. UTI on Admission? No. mw
[2017-11-04] MEDS ORDERED: ONDANSETRON 4 MG/2 ML VIAL IV PRN (05:35)
[2017-11-04] MEDS ORDERED: FUROSEMIDE 40 MG/4 ML VIAL IV ONE (05:35)
[2017-11-04] MEDS ORDERED: ALPRAZOLAM 0.25 MG TABLET PO PRN (05:35)
[2017-11-04] MEDS ORDERED: ACETAMINOPHEN 500 MG TAB PO PRN (05:35)
[2017-11-04] MEDS ORDERED: MAGNESIUM HYDROXIDE 8% 30 ML PO PRN (05:35)
[2017-11-04 08:00] VITALS: O2SAT 97
--- NOTE | 2017-11-04 08:07 | P.HP ---
Certification for Inpatient Patient admitted to: Observation With expected LOS: <2 Midnights Patient will require the following post-hospital care: None Practitioner: I am a practitioner with admitting privileges, knowledge of patient current condition, hospital course, and medical plan of care. Services: Services provided to patient in accordance with Admission requirements found in Title 42 Section 412.3 of the Code of Federal Regulations Patient History Date of Service: 11/04/17 Reason for admission: Fluid overload/hypertensive emergency History of Present Illness: Patient is a 42-year-old gentleman who came into the hospital with shortness of breath. Patient once again is fluid overloaded. He states that he started going to hemodialysis clinic and Saturday. He went on Saturday and he states he has been tolerating dialysis well. He did not have any problems. However, yesterday he started becoming more short of breath. By the time he arrived to the hospital his blood pressure was significantly elevated and he was volume overloaded. He was placed on BiPAP. His admitted for observation and we Consulted nephrology for hemodialysis this morning. Anticipate he will be able to go home after this is done as long as is blood pressure is stable. He will need at least 24 hrs of hospital care pending dialysis and further testing. Allergies No Known Allergies Allergy (Verified 08/06/17 01:36) Home Medications: Calcitrol [Rocaltrol*] 0.5 mcg PO DAILY #30 cap 08/12/17 Cholecalciferol (Vitamin D3) [Vitamin D 5,000 IU Cap*] 5,000 unit PO DAILY #30 cap 08/12/17 Hydralazine HCl [Apresoline] 100 mg PO TID #90 tablet 08/12/17 Nifedipine [Procardia Xl] 90 mg PO BID #60 tab.er.24 08/12/17 Sevelamer Carbonate [Renvela*] 1,600 mg PO TIDWM #90 tablet 08/12/17 Metoprolol Tartrate [Lopressor*] 100 mg PO BID #60 tab 10/02/17 Furosemide [Lasix] 40 mg PO DAILY #30 tab 10/22/17 Terazosin HCl [Hytrin*] 10 mg PO BID #60 cap 10/22/17 - Past Medical/Surgical History Diabetic: No -: Hypertension -: End-stage renal disease -: Diastolic CHF -: Anemia of chronic disease -: Thrombocytopenia -: Left foot sx Psychosocial/ Personal History: The patient is single. He has 9 children. He does not work. He recently got out of long term in May of 2016. - Family History Mother Medical History: Heart disease, Hypertension, Kidney disease - Social History Alcohol use: No CD- Drugs: No Caffeine use: No Review of Systems 10-point ROS is otherwise unremarkable Physical Examination - Vital Signs Temperature: 98.6 F Blood Pressure: 184/128 Pulse: 84 Respirations: 16 Pulse Ox (%): 89 - Physical Exam General: Alert, In no apparent distress, Oriented x3, Other (Currently on BiPAP) HEENT: Atraumatic, PERRLA, Mucous membr. moist/pink, EOMI, Sclerae nonicteric Neck: Supple, 2+ carotid pulse no bruit, No LAD, Without JVD or thyroid abnormality Respiratory: Clear to auscultation bilaterally, Normal air movement Cardiovascular: Regular rate/rhythm, Normal S1 S2, No murmurs Gastrointestinal: Normal bowel sounds, Soft and benign, Non-distended, No tenderness Musculoskeletal: No clubbing, No erythema, No tenderness, Swelling Integumentary: No rashes Neurological: Normal gait, Normal speech, Normal strength at 5/5 x4 extr, Normal tone, Sensation intact, Cranial nerves 3-12 intact, Normal affect Lymphatics: No axilla or inguinal lymphadenopathy - Studies Laboratory Data (last 24 hrs) 11/04/17 02:24: PT 12.3, INR 1.04 11/04/17 02:24: WBC 5.2 D, Hgb 8.8 L, Hct 27.7 L, Plt Count 200 D 11/04/17 02:24: B-Natriuretic Peptide 5816 H 11/04/17 02:24: Sodium 138, Potassium 3.9, BUN 43 H D, Creatinine 10.02 H* D, Glucose 93, Magnesium 1.9, Total Bilirubin 0.5, AST 70 H, ALT 59, Alkaline Phosphatase 93 Assessment & Plan - Problems (Diagnosis) (1) Fluid overload Current Visit: Yes Status: Acute (2) Acute pulmonary edema Onset Date: 05/13/17 Current Visit: No Status: Acute (3) End-stage renal disease Onset Date: 10/21/17 Current Visit: No Status: Acute (4) Anemia Onset Date: 09/13/17 Current Visit: No Status: Chronic Qualifiers: Anemia type: due to chronic kidney disease Chronic kidney disease stage: on chronic dialysis Qualified Code(s): N18.6 - End stage renal disease; D63.1 - Anemia in chronic kidney disease; Z99.2 - Dependence on renal dialysis (5) HTN (hypertension) Onset Date: 10/21/17 Current Visit: No Status: Chronic Qualifiers: Hypertension type: essential hypertension Qualified Code(s): I10 - Essential (primary) hypertension (6) Afib Current Visit: No Status: Resolved Qualifiers: Atrial fibrillation type: paroxysmal Qualified Code(s): I48.0 - Paroxysmal atrial fibrillation - Plan Plan: 1. Diuresis 2. Nephrology consultation 3. Continue Beta amna 4. Strict I's and O's 5. Repeat CXR 6. Daily weights 7. Education regarding diet and treatment of congestive heart failure - Advance Directives Does patient have a Living Will: No Does patient have a Durable POA for Healthcare: No - Code Status/Comfort Care Code Status Assessed: Yes Code Status: Full Code Critical Care: No Time Spent Managing PTS Care (In Minutes): 50
[2017-11-04 08:13] VITALS: BMI 26.4
[2017-11-04] MEDS: ALBUTEROL 2.5 MG/3 ML NEB SOL NEB SCH ×3 (08:46→20:00)
[2017-11-04] MEDS: IPRATROPIUM BROM 0.5MG/2.5ML NEB SCH ×3 (08:46→20:00)
[2017-11-04] MEDS ORDERED: EPOETIN ALFA 10,000 UNIT/ML SQ ONE (08:50)
[2017-11-04] MEDS ORDERED: LABETALOL HCL 100 MG/20 ML IV PRN (08:51)
[2017-11-04] MEDS ORDERED: NIFEDIPINE XL 90 MG TABLET PO SCH (09:00)
[2017-11-04] MEDS ORDERED: VITAMIN D 5,000 UNIT CAP PO SCH (09:00)
[2017-11-04] MEDS ORDERED: CALCITROL 0.25 MCG CAP PO SCH (09:00)
[2017-11-04] MEDS ORDERED: TERAZOSIN HCL 5 MG CAP PO SCH (09:00)
[2017-11-04] MEDS ORDERED: METOPROLOL TAR 50 MG TAB PO SCH (09:00)
[2017-11-04 09:07] LABS: Urine Appearance CLEAR; Urine Bilirubin NEGATIVE (NEG); Urine Blood NEGATIVE (NEG); Urine Color YELLOW; Urine Glucose NEGATIVE (NEG); Urine Protein 2+ (NEG); Urine Urobilinogen 0.2 mg/dL (0.2-1.0); Urine pH 7.5 (5.0-7.0)
[2017-11-04 09:31] LABS: Urine Microscopic Reflex ORDER UMIC
--- NOTE | 2017-11-04 09:46 | RAD REPORT ---
EXAM DESCRIPTION: RAD - Chest Single View - 11/04/2017 2:24 am CLINICAL HISTORY: Shortness of breath COMPARISON: October 22 TECHNIQUE: AP portable chest image was obtained 0213 hours . FINDINGS: Lung volumes are normal. Dialysis catheter remains in place on the right. There is new rig ht base airspace opacification obscuring the right hemidiaphragm. Left base opacification is present to a lesser degree. Left heart border and left hemidiaphragm are still defined. Heart size is promine nt but not substantially different. Mild vascular engorgement compared to prior study. Trachea is mid line. No pneumothorax. No acute aortic findings suspected. IMPRESSION: Vascular engorgement, increased lung parenchymal opacification and right greater than le ft pleural effusions. Failure or volume overload are favored over pneumonia.
[2017-11-04 10:08] LABS: Urine Bacteria <20 /HPF (NONE SEEN); Urine Culture Reflex Order NOT NEEDED; Urine RBC <5 /HPF (NONE SEEN)
[2017-11-04] MEDS: SEVELAMER CARBONATE 800 MG TABLET PO SCH ×2 (11:24→17:00)
--- NOTE | 2017-11-04 12:44 | EKG ---
Test Date: 2017-11-04 Test Time: 02:12:02 [place] Custodian: TITA MEASUREMENT RESULTS: Intervals: Rate: 87 NV: 138 QRSD: 94 QT: 418 QTc: 502 [place]: P: 61 NV: 138 QRS: -4 T: 82 INTERPRETIVE STATEMENTS: Normal sinus rhythm Possible Left atrial enlargement Nonspecific T wave abnormality Prolonged QT Abnormal ECG Compared to ECG 10/21/2017 03:04:40 T-wave abnormality now present Prolonged QT interval now present Sinus tachycardia no longer present Electronically Signed On 11-04-17 12:43:26 CDT by Loki Mitchell
[2017-11-04] MEDS ORDERED: HYDRALAZINE HCL 25 MG TABLET PO SCH (14:00)
[2017-11-04] MEDS ORDERED: NA CHLORIDE 0.9% 1,000 ML IV PRN (14:05)
[2017-11-04] MEDS ORDERED: MANNITOL 25% 12.5 GM/50 ML VIAL IV PRN (14:05)
[2017-11-04] MEDS ORDERED: EPOETIN ALFA 10,000 UNIT/ML VIAL IV SCH (14:15)
--- NOTE | 2017-11-04 14:40 | PN ---
Date of Progress Note: 11/04/2017 Subjective: The patient seen and examined. Chart reviewed and case discussed with RN and Dr. Cary benavidez. The patient states his breathing is better, however, still on supplemental oxygen. Has lower ext remity edema. Review of Systems: Negative except as above. Medications: Reviewed. Physical Examination: Vital Signs: Temperature 97.9, heart rate 95, blood pressure 184/128, respirations 18, O2 96% on 3 L via nasal cannula. General: Awake, alert, oriented x3, not in any acute distress. CV: S1, S2. Regular rate and rhythm. Peripheral pulses present. No murmurs. Respiratory: Diminished breath sounds. Some crackles are heard. No wheezing or stridor. No use of accessory muscles. Gastrointestinal: Abdomen is soft, nontender, nondistended. Positive bowel sounds. Extremities: No clubbing, cyanosis. 3+ lower extremity edema up to the shins. Neurologic: Nonfocal. Skin: Dialysis catheter in place, right chest. Laboratory Data: Troponin 0.10. BNP 5816. Chest x-ray personally reviewed, shows vascular engorgem ent, increased lung parenchymal opacification, right greater than left pleural effusions. Failure or volume overload are favored over pneumonia. Assessment And Plan: A 42-year-old male with. 1.Acute pulmonary edema secondary to end-stage renal disease. Chest x-ray shows bilateral pleural e ffusions. 2.Fluid overload with bilateral pleural effusions. We will anticipate improvement with dialysis. 3.End-stage renal disease, on hemodialysis. Appreciate Dr. Lomeli's input. We will dialyze the pa tient today. 4.Anemia of chronic disease. We will monitor H and H. 5.With accelerated hypertension, we will add p.r.n. medications, resume home medications. 6.Paroxysmal atrial fibrillation, currently in sinus rhythm. 7.Diastolic congestive heart failure, chronic. SA/MODL Voice ID: [id number] Report ID: [id number]
[2017-11-04] MEDS ORDERED: ALBUMIN HUMAN 25% 50 ML IV SCH (15:00)
[2017-11-04 20:02] VITALS: BP 173/103; TEMP 98.9
[2017-11-04] MEDS ORDERED: RAMIPRIL 5 MG CAP PO SCH (21:00)
[2017-11-05] MEDS ORDERED: FUROSEMIDE 40 MG TABLET PO SCH (09:00)
--- NOTE | 2017-11-07 05:08 | DS ---
Date of Discharge: 11/04/2017 The patient left AMA same day. Discharge Diagnoses: 1.Acute pulmonary edema. 2.End-stage renal disease, on hemodialysis. 3.Fluid overload. 4.Bilateral pleural effusions. 5.Anemia of chronic disease. 6.Accelerated hypertension. 7.Paroxysmal atrial fibrillation, currently in sinus rhythm. 8.Diastolic congestive heart failure, chronic. Hospital Course: The patient is a 42-year-old male who has history of end-stage renal disease, comes in with shortness of breath, acute pulmonary edema secondary to his end-stage renal disease. The celine joel's chest x-ray showed effusion. He was hypoxic and required supplemental oxygen. The patient w as seen by Dr. Lomeli with Nephrology, and dialysis was initiated on the day of admission to relieve his symptoms. After dialysis, the patient, however, decided to leave against medical advice. /ANTHONY Voice ID: [id number] Report ID: [id number]
[2017-11-07 13:31] LABS: HBsAG Nonreactive (Nonreactive)
== END 2017-11-04 20:25 | disposition left against medical advice (07) ==
LOC: ER 01:55 → ERHOLD 04:50 → INTOOBSV 04:50 → 2ND 05:54
PROVIDERS: ADMIT Hospitalist; ATTEND Hospitalist
PROC: 5A09357 Assistance with Respiratory Ventilation, Less than 24 Consecutive Hours, Continuous Positive Airway Pressure (ICD-10-PCS; principal; 2017-11-04)
DX: I13.2 Hypertensive heart and chronic kidney disease with heart failure and with stage 5 chronic kidney disease, or end stage renal disease (principal); N18.6 End stage renal disease; I50.32 Chronic diastolic (congestive) heart failure; I48.0 Paroxysmal atrial fibrillation; D63.1 Anemia in chronic kidney disease; E87.70 Fluid overload, unspecified
CPT/HCPCS: 36415; 71045; 80048; 80076; 81003; 81015; 82550; 82962; 83735; 83880; 84484; 85025; 85610; 86317; 86704; 86706; 87340; 90935; 93005; 94640; 94660; 99291; 99292; G0378; J0885; Q4081

== ENCOUNTER 2017-11-18 00:06 | Observation (INO) | payer OTHER ==
[2017-11-18 00:50] LABS: Arterial Blood Carboxyhemoglob 1.5 % (0-1.5); Blood O2 Saturation 92.4 % (92-98.5)
[2017-11-18] MEDS ORDERED: NITROGLYCERIN 0.4 MG/TAB SL ONE (00:51)
[2017-11-18 00:58] LABS: Absolute Lymphocytes (CBC) 0.7 K/uL (0.7-4.9); Absolute Monocytes 0.4 K/uL (0.1-1.3); Basophils % 0.9 % (0-1.3); Eosinophils % 2.5 % (0-4.4); Hematocrit 26.3 % (39.6-49.0); Lymphocytes % 9.5 % (15.3-44.8); MCH 27.8 pg (27.0-35.0); MCV 85.3 fL (80-100); MPV 7.6 fL (7.6-11.3); RBC Red Blood Cell Count 3.08 M/uL (4.33-5.43)
[2017-11-18 01:02] LABS: Protime INR 1.12
[2017-11-18 01:15] LABS: Bicarbonate 20 mEq/L (21-31); Glucose Level 102 mg/dL (65-120); Potassium 4.3 mEq/L (3.6-5.0); Sodium Level 141 mEq/L (135-145)
[2017-11-18 01:21] LABS: ALT/SGPT 63 IU/L (10-60); AST/SGOT 65 IU/L (10-42); Albumin 3.7 g/dL (3.2-5.5); Alkaline Phosphatase 125 IU/L (42-121); BUN Blood Urea Nitrogen 76 mg/dL (6-20); Bilirubin Direct < 0.1 mg/dL (0-0.2); Bilirubin Total 0.4 mg/dL (0.3-1.2); Creatine Phosphokinase 145 IU/L (22-269); Magnesium 1.9 mg/dL (1.8-2.5); Protein, Total 7.5 g/dL (6.0-8.3)
[2017-11-18 01:22] LABS: CKMB Creatine Kinase MB 2.1 ng/ml (0.3-4.0)
[2017-11-18] MEDS ORDERED: ASPIRIN 81 MG CHEWABLE TABLET ONE (01:58)
[2017-11-18] MEDS ORDERED: FUROSEMIDE 100 MG/10 ML VIAL IV ONE (01:58)
--- NOTE | 2017-11-18 02:09 | ER ---
Nurse's Notes [facility] Name: Jermaine Rivera Age: 42 yrs Sex: Male : 1975 Arrival Date: 11/18/2017 Time: 00:07 Bed 17 Private MD: Fredrick Lomeli Diagnosis: Hypoxemia;Pulmonary edema;End stage renal disease;Hypertensive heart and chronic kidney disease Presentation: 11/18 00:20 Presenting complaint: Patient states: SOB x 3 hrs. Pt reports last dialysis was 11/16 and aa1 4L fluid removed. Initial RA O2 sat of 78% which increased to 90% on 5L NC. Transition of care: patient was not received from another setting of care. Onset of symptoms was November 17, 2017 at 21:00. Risk Assessment: Do you want to hurt yourself or someone else? Patient reports no desire to harm self or others. Initial Sepsis Screen: Does the patient meet any 2 criteria? No. Patient's initial sepsis screen is negative. Does the patient have a suspected source of infection? No. Patient's initial sepsis screen is negative. Care prior to arrival: None. 00:20 Method Of Arrival: Ambulatory aa1 00:20 Acuity: FERNANDA 2 aa1 Triage Assessment: 03:42 General: Appears uncomfortable, Behavior is cooperative, appropriate for age. jd3 Respiratory: Onset: The symptoms/episode began/occurred suddenly, the patient has moderate shortness of breath. Historical: - Allergies: 00:32 No Known Allergies; aa1 - PMHx: 00:32 Dialysis; Hypertension; Renal Disease; aa1 - Immunization history:: Adult Immunizations up to date. - Social history:: Smoking status: Patient/guardian denies using tobacco. - Ebola Screening: : No symptoms or risks identified at this time. Screenin:43 Abuse screen: Denies threats or abuse. Nutritional screening: No deficits noted. jd3 Tuberculosis screening: No symptoms or risk factors identified. Fall Risk IV access (20 points). Ambulatory Aid- None/Bed Rest/Nurse Assist (0 pts). Gait- Weak (10 pts.). Mental Status- Oriented to own ability (0 pts). Total Ceja Fall Scale indicates Low Risk Score (25-44 pts). Fall prevention measures have been instituted. Side Rails Up X 2 Placed close to Nursing Station Frequent Obs/Assesments occuring. Assessment: 00:45 General: Appears uncomfortable, Behavior is cooperative. Pain: Complains of pain in jd3 chest Quality of pain is described as aching, pressure, Is continuous. Neuro: Level of Consciousness is awake, alert, obeys commands, Oriented to person, place, time, situation. Cardiovascular: Heart tones S1 S2 present Murmur present Capillary refill < 3 seconds Patient's skin is warm and dry. Rhythm is sinus rhythm. Respiratory: Reports shortness of breath at rest Airway is patent Respiratory effort is labored, Respiratory pattern is regular, symmetrical, Breath sounds are clear bilaterally. GI: Abdomen is flat, Bowel sounds present X 4 quads. Abd is soft and non tender X 4 quads. : No signs and/or symptoms were reported regarding the genitourinary system. EENT: No signs and/or symptoms were reported regarding the EENT system. Derm: Skin is intact, Skin is moist, Skin is normal, Skin temperature is warm. Musculoskeletal: Circulation, motion, and sensation intact. Range of motion: intact in all extremities. 01:41 Reassessment: Patient appears in no apparent distress at this time. Patient and/or jd3 family updated on plan of care and expected duration. Pain level reassessed. Patient is alert, oriented x 3, equal unlabored respirations, skin warm/dry/pink. Patient states feeling better. 01:41 Respiratory: Airway is patent Respiratory effort is even, unlabored, Respiratory jd3 pattern is regular, symmetrical. 02:45 Reassessment: Patient appears in no apparent distress at this time. Patient and/or jd3 family updated on plan of care and expected duration. Pain level reassessed. Patient is alert, oriented x 3, equal unlabored respirations, skin warm/dry/pink. pt resting in bed, eyes closed, even and unlabored respirations, call mohan in reach, no distress noted at this time. Patient states feeling better. 03:36 Reassessment: Patient appears in no apparent distress at this time. No changes from jd3 previously documented assessment. Patient and/or family updated on plan of care and expected duration. Pain level reassessed. Patient is alert, oriented x 3, equal unlabored respirations, skin warm/dry/pink. 04:15 Reassessment: Patient appears in no apparent distress at this time. Patient and/or jd3 family updated on plan of care and expected duration. Pain level reassessed. Patient is alert, oriented x 3, equal unlabored respirations, skin warm/dry/pink. pt reported understanding of need for admission. Vital Signs: 00:20 BP 199 / 124; Pulse 89; Resp 22; Temp 98.3; Pulse Ox 78% on R/A; Weight 86.18 kg; aa1 Height 6 ft. 1 in. (185.42 cm); Pain 0/10; 00:25 Pulse Ox 90% on 5 lpm NC; aa1 01:40 BP 185 / 125; Pulse 88; Resp 20 S; Pulse Ox 98% on R/A; Pain 0/10; jd3 02:44 BP 189 / 128; Pulse 82; Resp 18 S; Pulse Ox 98% on BiPAP; Pain 0/10; jd3 03:35 BP 171 / 110; Pulse 83; Resp 18 S; Pulse Ox 98% on R/A; Pain 0/10; jd3 04:19 BP 161 / 103; Pulse 80; Resp 18 S; Pulse Ox 99% on R/A; Pain 0/10; jd3 00:20 Body Mass Index 25.07 (86.18 kg, 185.42 cm) aa1 ED Course: 00:07 Patient arrived in ED. ds1 00:07 Fredrick Lomeli DO is Private Physician. ds1 00:20 Arm band placed on right wrist. Patient placed in an exam room, on a stretcher. aa1 00:21 Oxygen administration via nasal cannula \T\ 5L/min. aa1 00:25 EKG done, by ED staff, reviewed by Odilon Burgess MD. aa1 00:31 Triage completed. aa1 00:32 Riley Jaquez PA is PHCP. cp 00:32 Odilon Burgess MD is Attending Physician. cp 00:40 Initial lab(s) drawn, by me, sent to lab. Inserted saline lock: 20 gauge in left aa1 antecubital area, using aseptic technique. Blood collected. 00:47 Adonis Parra, CHRISTOPHE is Primary Nurse. jd3 00:59 X-ray completed. Portable x-ray completed in exam room. Patient tolerated procedure kw well. 01:00 XRAY Chest (1 view) In Process Unspecified. EDMS 02:06 Alta Pace MD is Hospitalizing Provider. cp 03:43 Patient has correct armband on for positive identification. Placed in gown. Bed in low jd3 position. Call light in reach. Side rails up X2. 03:43 No provider procedures requiring assistance completed. Patient admitted, IV remains in jd3 place. Administered Medications: 00:54 Drug: Nitroglycerin 0.4 mg Route: Sublingual; jd3 01:40 Drug: Nitroglycerin 0.4 mg Route: Sublingual; jd3 02:53 Follow up: Response: No adverse reaction; Pain is decreased jd3 02:53 Follow up: Response: No adverse reaction; Pain is decreased jd3 02:02 Drug: Aspirin Chewable Tablet 324 mg Route: PO; jd3 02:54 Follow up: Response: No adverse reaction jd3 02:02 Drug: Lasix 100 mg Route: IVP; Site: left antecubital; jd3 02:54 Follow up: Response: No adverse reaction jd3 03:07 Drug: hydrALAZINE 10 mg Route: IV; Rate: calculated rate; Site: left antecubital; jd3 03:44 Follow up: Response: No adverse reaction; IV Status: Completed infusion jd3 Outcome: 02:08 Decision to Hospitalize by Provider. cp 04:14 Admitted to Tele accompanied by tech, via stretcher, room 403, with oxygen, with chart, jd3 Report called to Sujey SAEED 04:14 Admitted to 04:14 Condition: stable 04:14 Instructed on the need for admit, Demonstrated understanding of instructions. 04:17 Patient left the ED. jd3 Signatures: Dispatcher [employer] EDJayla Nath RN RN [email or web address] Dorothy Connor ds1 Dionna Vidal Corey, SOURAV PA Adonis Martin RN RN jd3
--- NOTE | 2017-11-18 02:09 | EDPHYS ---
Physician Documentation [facility] Name: Jermaine Rivera Age: 42 yrs Sex: Male : 1975 Arrival Date: 11/18/2017 Time: 00:07 Bed 17 Private MD: Fredrick Lomeli ED Physician Odilon Burgess HPI: 11/18 00:40 This 42 yrs old Black Male presents to ER via Ambulatory with complaints of Shortness cp Of Breath. 00:40 The patient has shortness of breath at rest. Onset: The symptoms/episode began/occurred cp suddenly, 3 hour(s) ago. Duration: The symptoms are continuous, and are steadily getting worse. 00:40 Associated signs and symptoms: Pertinent positives: non-productive cough, Pertinent cp negatives: chest pain, fever, headache. 00:40 Severity of symptoms: in the emergency department the symptoms are unchanged despite cp home interventions. Patient reports he may have ingested too much fluids today. Reports he was last dialyzed Saturday. Historical: - Allergies: 00:32 No Known Allergies; aa1 - PMHx: 00:32 Dialysis; Hypertension; Renal Disease; aa1 - Immunization history:: Adult Immunizations up to date. - Social history:: Smoking status: Patient/guardian denies using tobacco. - Ebola Screening: : No symptoms or risks identified at this time. ROS: 00:45 Constitutional: Negative for body aches, chills, fever, poor PO intake. cp 00:45 Eyes: Negative for injury, pain, redness, and discharge. cp 00:45 ENT: Negative for drainage from ear(s), ear pain, sore throat, difficulty swallowing, difficulty handling secretions. 00:45 Cardiovascular: Positive for edema, Negative for chest pain, palpitations. 00:45 Respiratory: Positive for cough, shortness of breath, at rest. Negative for hemoptysis. 00:45 Abdomen/GI: Negative for abdominal pain, nausea, vomiting, and diarrhea, black/tarry stool, rectal bleeding. 00:45 Back: Negative for pain at rest, pain with movement, radiated pain. 00:45 : Negative for urinary symptoms. 00:45 MS/extremity: Positive for swelling, of the right lower leg and left lower leg, Negative for injury or acute deformity, decreased range of motion, pain. 00:45 Skin: Negative for cellulitis, rash. 00:45 Neuro: Negative for altered mental status, headache, syncope, near syncope. 00:45 All other systems are negative. Exam: 00:30 ECG was reviewed by the Attending Physician. cp 00:49 Head/Face: Normocephalic, atraumatic. Eyes: Pupils equal round and reactive to light, cp extra-ocular motions intact. Lids and lashes normal. Conjunctiva and sclera are non-icteric and not injected. Cornea within normal limits. Periorbital areas with no swelling, redness, or edema. ENT: Nares patent. No nasal discharge, no septal abnormalities noted. Tympanic membranes are normal and external auditory canals are clear. Oropharynx with no redness, swelling, or masses, exudates, or evidence of obstruction, uvula midline. Mucous membranes moist. Neck: Trachea midline, no thyromegaly or masses palpated, and no cervical lymphadenopathy. Supple, full range of motion without nuchal rigidity, or vertebral point tenderness. No Meningismus. Chest/axilla: Normal chest wall appearance and motion. Nontender with no deformity. No lesions are appreciated. 00:49 Constitutional: The patient appears alert, awake, non-diaphoretic, non-toxic, well developed, well nourished, in obvious distress, mildly distressed. 00:49 Cardiovascular: Rate: normal, Rhythm: regular, Pulses: Pulses are 2+ in right radial artery and left radial artery. Edema: ankle edema, that is moderate, JVD: is not appreciated. 00:49 Respiratory: mild respiratory distress is noted, Respirations: labored breathing, that is mild, shallow respirations, that is mild, tachypnea, that is mild, Breath sounds: rales, that are moderate, are located in both bases, decreased breath sounds, that are mild, throughout, stridor, is not appreciated. 00:49 Abdomen/GI: Inspection: abdomen appears normal, Bowel sounds: active, all quadrants, Palpation: abdomen is soft and non-tender, in all quadrants. 00:49 Back: pain, is absent, ROM is normal. 00:49 Skin: cellulitis, is not appreciated, no rash present. cp 00:49 Neuro: Orientation: to person, place \T\ time. Mentation: lucid, able to follow commands, Cerebellar function: is grossly normal, Motor: moves all fours, strength is normal, Sensation: no obvious gross deficits. Vital Signs: 00:20 BP 199 / 124; Pulse 89; Resp 22; Temp 98.3; Pulse Ox 78% on R/A; Weight 86.18 kg; aa1 Height 6 ft. 1 in. (185.42 cm); Pain 0/10; 00:25 Pulse Ox 90% on 5 lpm NC; aa1 01:40 BP 185 / 125; Pulse 88; Resp 20 S; Pulse Ox 98% on R/A; Pain 0/10; jd3 02:44 BP 189 / 128; Pulse 82; Resp 18 S; Pulse Ox 98% on BiPAP; Pain 0/10; jd3 03:35 BP 171 / 110; Pulse 83; Resp 18 S; Pulse Ox 98% on R/A; Pain 0/10; jd3 04:19 BP 161 / 103; Pulse 80; Resp 18 S; Pulse Ox 99% on R/A; Pain 0/10; jd3 00:20 Body Mass Index 25.07 (86.18 kg, 185.42 cm) aa1 MDM: 00:39 Patient medically screened. cp 01:48 Physician consultation: Alta Pace MD was called at 01:49, was contacted at 01:49, cp regarding admission, to the telemetry unit. patient's condition. 02:05 Data reviewed: vital signs, nurses notes, lab test result(s), EKG, radiologic studies, cp plain films. 02:05 Test interpretation: by ED physician or midlevel provider: ECG, plain radiologic cp studies. Counseling: I had a detailed discussion with the patient and/or guardian regarding: the historical points, exam findings, and any diagnostic results supporting the discharge/admit diagnosis, lab results, radiology results, the need for further work-up and treatment in the hospital. Response to treatment: the patient's symptoms have markedly improved after treatment. 11/18 00:35 Order name: Basic Metabolic Panel; Complete Time: 01:30 cp 11/18 01:30 Interpretation: Normal except: CO2 20; CA 8.2; BUN 76; GFR 6. cp 11/18 00:35 Order name: BNP; Complete Time: 02:01 cp 11/18 02:01 Interpretation: BNP 5361; Reviewed. cp 11/18 00:35 Order name: CBC with Diff; Complete Time: 01:30 cp 11/18 01:30 Interpretation: Normal except: WBC 7.3; RBC 3.08; HGB 8.6; HCT 26.3; RDW 17.7; ZACK% cp 82.1; LYM% 9.5. 11/18 00:35 Order name: Ckmb; Complete Time: 01:30 cp 11/18 00:35 Order name: CPK; Complete Time: :30 cp 11/18 00:35 Order name: LFT's; Complete Time: :30 cp 11/18 01:30 Interpretation: Normal except: SGOT 65; SGPT 63; ALK 125; GLOB 3.8; A/G 1.0. cp 11/18 00:35 Order name: Magnesium; Complete Time: :30 cp 11/18 00:35 Order name: PT-INR; Complete Time: 30 cp 11/18 00:35 Order name: Ptt, Activated; Complete Time: :30 cp 11/18 00:35 Order name: Troponin (emerg Dept Use Only); Complete Time: :30 cp 11/18 01:31 Interpretation: Abnormal: TROPED 0.08. cp 11/18 00:35 Order name: XRAY Chest (1 view) cp 11/18 00:35 Order name: ABG; Complete Time: :30 cp 11/18 00:35 Order name: EKG; Complete Time: 00:35 cp 11/18 00:35 Order name: Cardiac monitoring; Complete Time: 00:47 cp 11/18 00:35 Order name: EKG - Nurse/Tech; Complete Time: 00:47 cp 11/18 00:35 Order name: IV Saline Lock; Complete Time: 00:47 cp 11/18 00:35 Order name: Labs collected and sent; Complete Time: 00:47 cp 11/18 00:35 Order name: O2 Per Protocol; Complete Time: 00:47 cp 11/18 00:35 Order name: O2 Sat Monitoring; Complete Time: 00:47 cp 11/18 01:34 Order name: Vital Signs; Complete Time: 01:42 cp 11/18 02:13 Order name: CONS Physician Consult EDMS EC:30 Rate is 86 beats/min. Rhythm is regular. MS interval is normal. QRS interval is normal. cp QT interval is normal. T waves are Inverted in lead aVL. No ST changes noted. Interpreted by me. Reviewed by me. Administered Medications: 00:54 Drug: Nitroglycerin 0.4 mg Route: Sublingual; jd3 01:40 Drug: Nitroglycerin 0.4 mg Route: Sublingual; jd3 02:53 Follow up: Response: No adverse reaction; Pain is decreased jd3 02:53 Follow up: Response: No adverse reaction; Pain is decreased jd3 02:02 Drug: Aspirin Chewable Tablet 324 mg Route: PO; jd3 02:54 Follow up: Response: No adverse reaction jd3 02:02 Drug: Lasix 100 mg Route: IVP; Site: left antecubital; jd3 02:54 Follow up: Response: No adverse reaction jd3 03:07 Drug: hydrALAZINE 10 mg Route: IV; Rate: calculated rate; Site: left antecubital; jd3 03:44 Follow up: Response: No adverse reaction; IV Status: Completed infusion jd3 Disposition: 06:13 Co-signature as Attending Physician, Odilon Burgess MD. pklaura Disposition: 11/18/17 02:08 Hospitalization ordered by Alta Pace for Observation. Preliminary diagnosis are Hypoxemia, Pulmonary edema, End stage renal disease, Hypertensive heart and chronic kidney disease. - Bed requested for Telemetry/MedSurg (observation). - Status is Observation. jd3 - Condition is Stable. - Problem is an acute exacerbation. - Symptoms have improved. UTI on Admission? No Signatures: Dispatcher [employer] EDMS Jayla Sneed RN RN aa1 Odilon Burgess MD MD pkl Riley Jaquez PA PA cp Thompson, Moriah mt Davies, Jonathon, RN RN jd3 Corrections: (The following items were deleted from the chart) 00:51 00:35 Urine Dipstick-Ancillary ordered. cp aa1 02:09 02:08 Hospitalization Ordered by Alta Pace MD for Observation. Preliminary cp diagnosis is Hypoxemia; Pulmonary edema; End stage renal disease. Bed requested for Telemetry/MedSurg (observation). Status is Observation. Condition is Stable. Problem is an acute exacerbation. Symptoms have improved. UTI on Admission? No. cp 02:09 02:09 11/18/2017 02:08 Hospitalization Ordered by Alta Pace MD for Observation. mt Preliminary diagnosis is Hypoxemia; Pulmonary edema; End stage renal disease; Hypertensive heart and chronic kidney disease. Bed requested for Telemetry/MedSurg (observation). Status is Observation. Condition is Stable. Problem is an acute exacerbation. Symptoms have improved. UTI on Admission? No. cp 04:17 02:09 11/18/2017 02:08 Hospitalization Ordered by Alta Pace MD for Observation. jd3 Preliminary diagnosis is Hypoxemia; Pulmonary edema; End stage renal disease. Bed requested for Telemetry/MedSurg (observation). Status is Observation. Condition is Stable. Problem is an acute exacerbation. Symptoms have improved. UTI on Admission? No. mt
[2017-11-18] MEDS ORDERED: HYDRALAZINE HCL 20 MG/ML VIAL ONE (03:01)
[2017-11-18] MEDS ORDERED: ACETAMINOPHEN 500 MG TAB PO PRN (03:04)
[2017-11-18] MEDS ORDERED: MORPHINE 2 MG/ML SYR IV PRN (03:04)
[2017-11-18] MEDS ORDERED: ONDANSETRON 4 MG/2 ML VIAL IV PRN (03:04)
[2017-11-18 04:36] VITALS: BMI 25.3
[2017-11-18] MEDS ORDERED: FUROSEMIDE 40 MG/4 ML VIAL IV ONE (06:00)
[2017-11-18] MEDS ORDERED: FUROSEMIDE 40 MG/4 ML VIAL ONE (06:19)
--- NOTE | 2017-11-18 06:29 | EKG ---
Test Date: 2017-11-18 Test Time: 00:24:28 Casting Machine Service Operator: ROCHELLE MEASUREMENT RESULTS: Intervals: Rate: 86 HI: 144 QRSD: 90 QT: 420 QTc: 502 Rollins: P: 63 HI: 144 QRS: 19 T: 77 INTERPRETIVE STATEMENTS: Sinus rhythm with occasional premature ventricular complexes Nonspecific T wave abnormality Prolonged QT Abnormal ECG Compared to ECG 11/04/2017 02:12:02 Ventricular premature complex(es) now present T-wave abnormality still present Electronically Signed On 11-18-17 06:28:02 CDT by Naveen Vasquez
[2017-11-18] MEDS ORDERED: MORPHINE 4 MG/ML SYR IV PRN (07:17)
--- NOTE | 2017-11-18 07:23 | P.HP ---
Certification for Inpatient Patient admitted to: Observation With expected LOS: <2 Midnights Patient will require the following post-hospital care: None Practitioner: I am a practitioner with admitting privileges, knowledge of patient current condition, hospital course, and medical plan of care. Services: Services provided to patient in accordance with Admission requirements found in Title 42 Section 412.3 of the Code of Federal Regulations Patient History Date of Service: 11/18/17 Reason for admission: Volume overload/ESRD History of Present Illness: Patient is a 42-year-old gentleman who was admitted to the hospital with volume overload. Patient was recently started on hemodialysis and has been going to the hemodialysis clinic lately. Over the we can, he was going to watching his son play baseball. He states that during the week and his volume intake was higher than it should then. This resulted in him going into volume overload. He was started on BiPAP in the emergency room. He came into the emergency room and we gave him IV diuretics. His symptoms are improving. Await hemodialysis this morning and possible discharge after hemodialysis is completed Allergies No Known Allergies Allergy (Verified 11/04/17 08:13) Home Medications: Calcitriol [Rocaltrol] 0.5 mcg PO DAILY 11/04/17 Furosemide 40 mg PO DAILY 11/04/17 Hydralazine HCl [Apresoline] 100 mg PO TID 11/04/17 Metoprolol Succinate [Toprol Xl*] 100 mg PO BID 11/04/17 Nifedipine [Nifedipine ER] 90 mg PO BID 11/04/17 Sevelamer Carbonate [Renvela*] 1,600 mg PO TID 11/04/17 Terazosin HCl 5 mg PO BID 11/04/17 Ramipril [Altace] 10 mg PO 11/18/17 - Past Medical/Surgical History Has patient received pneumonia vaccine in the past: Yes Diabetic: No -: Hypertension -: End-stage renal disease -: Diastolic CHF -: Anemia of chronic disease -: Thrombocytopenia -: Left foot sx -: dialysis access Psychosocial/ Personal History: The patient is single. He has 9 children. He does not work. He recently got out of senior living in May of 2016. - Family History Mother Medical History: Heart disease, Hypertension, Kidney disease - Social History Smoking Status: Never smoker Alcohol use: No CD- Drugs: No Caffeine use: No Place of Residence: Home Review of Systems 10-point ROS is otherwise unremarkable Physical Examination - Vital Signs Temperature: 98.6 F Blood Pressure: 170/105 Pulse: 78 Respirations: 18 Pulse Ox (%): 97 - Physical Exam General: Alert, In no apparent distress, Oriented x3 HEENT: Atraumatic, PERRLA, Mucous membr. moist/pink, EOMI, Sclerae nonicteric Neck: Supple, 2+ carotid pulse no bruit, No LAD, Without JVD or thyroid abnormality Respiratory: Crackles/rales, Expiratory wheezes Cardiovascular: Regular rate/rhythm, Normal S1 S2, No murmurs Gastrointestinal: Normal bowel sounds, Soft and benign, Non-distended, No tenderness Musculoskeletal: No clubbing, No tenderness, Swelling Integumentary: No rashes Neurological: Normal gait, Normal speech, Normal strength at 5/5 x4 extr, Normal tone, Sensation intact, Cranial nerves 3-12 intact, Normal affect Lymphatics: No axilla or inguinal lymphadenopathy - Studies Laboratory Data (last 24 hrs) 11/18/17 00:40: PT 13.2 H, INR 1.12, APTT 30.5 11/18/17 00:40: WBC 7.3 D, Hgb 8.6 L, Hct 26.3 L, Plt Count 219 11/18/17 00:40: B-Natriuretic Peptide 5361 H 11/18/17 00:40: Sodium 141, Potassium 4.3, BUN 76 H D, Creatinine 11.59 H* D, Glucose 102, Magnesium 1.9, Total Bilirubin 0.4, AST 65 H, ALT 63 H, Alkaline Phosphatase 125 H Assessment & Plan - Problems (Diagnosis) (1) Acute pulmonary edema Onset Date: 05/13/17 Current Visit: No Status: Acute (2) End-stage renal disease Onset Date: 10/21/17 Current Visit: No Status: Acute (3) Fluid overload Current Visit: No Status: Acute (4) Pulmonary edema Onset Date: 10/21/17 Current Visit: No Status: Acute Qualifiers: (5) Pulmonary hypertension Onset Date: 09/13/17 Current Visit: No Status: Chronic (6) Afib Current Visit: No Status: Resolved Qualifiers: (7) Malignant hypertension Onset Date: 08/07/17 Current Visit: No Status: Acute - Plan Plan: 1. IV Lasix 2. Nephrology Consult for hemodialysis 3. Rubbing Bed Operator regarding fluid intake 4. Monitor blood pressure closely 5. Monitor electrolytes 6. GI and DVT prophylaxis Discharge Plan: Home Plan to discharge in: 24 Hours - Advance Directives Does patient have a Living Will: No Does patient have a Durable POA for Healthcare: Yes - Code Status/Comfort Care Code Status Assessed: Yes Code Status: Full Code Critical Care: No Time Spent Managing PTS Care (In Minutes): 50
[2017-11-18] MEDS: TERAZOSIN HCL 5 MG CAP PO SCH ×2 (08:15→20:30)
[2017-11-18] MEDS: HYDRALAZINE HCL 25 MG TABLET PO SCH ×4 (08:16→20:36)
[2017-11-18] MEDS: METOPROLOL XL 100 MG TAB PO SCH ×2 (08:16→20:30)
[2017-11-18] MEDS: NIFEDIPINE XL 90 MG TABLET PO SCH ×2 (08:17→20:30)
--- NOTE | 2017-11-18 08:20 | RAD REPORT ---
EXAM DESCRIPTION: [facility] Single View11/18/2017 1:00 am CLINICAL HISTORY: Shortness of breath COMPARISON: Nov 04 2017 FINDINGS: Extensive bilateral pulmonary opacities are present. The heart is enlarged. A central sonia ous catheter remains in place. IMPRESSION: Extensive bilateral pulmonary opacities probably represent pulmonary edema. Pneumonia ca n also have this appearance
[2017-11-18] MEDS ORDERED: RAMIPRIL 5 MG CAP PO SCH (09:00)
[2017-11-18] MEDS ORDERED: HYDRALAZINE HCL 25 MG TABLET PO SCH (09:00)
[2017-11-18 10:48] VITALS: O2SAT 96
[2017-11-18 11:20] LABS: Absolute Lymphocytes (CBC) 0.8 K/uL (0.7-4.9); Absolute Monocytes 0.4 K/uL (0.1-1.3); Absolute Neutrophil 4.5 K/uL (1.8-8.0); Basophils % 0.8 % (0-1.3); Eosinophils % 2.7 % (0-4.4); Hematocrit 22.4 % (39.6-49.0); Lymphocytes % 14.2 % (15.3-44.8); MCH 27.5 pg (27.0-35.0); MCV 85.3 fL (80-100); MPV 7.6 fL (7.6-11.3); Monocytes % 7.2 % (3.3-12.3); RBC Red Blood Cell Count 2.62 M/uL (4.33-5.43)
[2017-11-18] MEDS: HYDRALAZINE HCL 20 MG/ML VIAL IV PRN ×2 (11:56→20:31)
[2017-11-18 12:09] LABS: Magnesium 1.9 mg/dL (1.8-2.5); Potassium 4.7 mEq/L (3.6-5.0)
[2017-11-18] MEDS ORDERED: MANNITOL 25% 12.5 GM/50 ML VIAL IV PRN (14:19)
[2017-11-18] MEDS ORDERED: NA CHLORIDE 0.9% 1,000 ML IV PRN (14:19)
[2017-11-18] MEDS ORDERED: EPOETIN ALFA 10,000 UNIT/ML VIAL IV SCH (14:30)
[2017-11-18] MEDS ORDERED: ALBUMIN HUMAN 25% 50 ML IV SCH (15:00)
[2017-11-18] MEDS ORDERED: NA CHLORIDE 0.9% 250 ML ONE ×2 (15:43→16:55)
[2017-11-18 20:31] VITALS: BP 179/96
[2017-11-18 21:38] VITALS: TEMP 98.7
--- NOTE | 2017-11-18 21:59 | P.CNS ---
Date of Consult: 11/18/17 Reason for Consult: ESRD Requesting Physician: Alta Pace Chief Complaint: Volume overload/ESRD History of Present Illness: Patient is a 42-year-old gentleman who was admitted to the hospital with volume overload. Patient was recently started on hemodialysis and has been going to the hemodialysis clinic lately. Over the we can, he was going to watching his son play baseball. He states that during the week and his volume intake was higher than it should then. This resulted in him going into volume overload. He was started on BiPAP in the emergency room. He came into the emergency room and we gave him IV diuretics. His symptoms are improving. Await hemodialysis this morning and possible discharge after hemodialysis is completed 00:40 This 42 yrs old Black Male presents to ER via Ambulatory with complaints of Shortness cp Of Breath. 00:40 The patient has shortness of breath at rest. Onset: The symptoms/episode began/occurred cp suddenly, 3 hour(s) ago. Duration: The symptoms are continuous, and are steadily getting worse. Allergies No Known Allergies Allergy (Verified 11/04/17 08:13) Home medications list reviewed: Yes Home Medications: Calcitriol [Rocaltrol] 0.5 mcg PO DAILY 11/04/17 Hydralazine HCl [Apresoline] 100 mg PO TID 11/04/17 Metoprolol Succinate [Toprol Xl*] 100 mg PO BID 11/04/17 Nifedipine [Nifedipine ER] 90 mg PO BID 11/04/17 Sevelamer Carbonate [Renvela*] 1,600 mg PO TID 11/04/17 Terazosin HCl 5 mg PO BID 11/04/17 Furosemide 40 mg PO DAILY #30 tablet 11/18/17 Ramipril [Altace] 10 mg PO 11/18/17 - Past Medical/Surgical History Diabetic: No -: Hypertension -: End-stage renal disease -: Diastolic CHF -: Anemia of chronic disease -: Thrombocytopenia -: Left foot sx -: dialysis access Psychosocial/ Personal History: The patient is single. He has 9 children. He does not work. He recently got out of residential in May of 2016. - Family History Mother Medical History: Heart disease, Hypertension, Kidney disease - Social History Smoking Status: Unknown if ever smoked Alcohol use: No CD- Drugs: No Caffeine use: No Place of Residence: Home Review of Systems 10-point ROS is otherwise unremarkable General: Weakness, Malaise Respiratory: SOB with Excertion Cardiovascular: Edema Physical Examination Temp Pulse Resp BP Pulse Ox 98.7 F 83 18 179/96 H 96 11/18/17 20:00 11/18/17 20:30 11/18/17 20:00 11/18/17 20:30 11/18/17 20:00 General: In no apparent distress, Oriented x3, Cooperative HEENT: Atraumatic, Mucous membr. moist/pink Neck: Supple, JVD distended Respiratory: Clear to auscultation bilaterally, Diminished Cardiovascular: Regular rate/rhythm, No rubs, Edema Gastrointestinal: Soft and benign, Non-distended, No guarding Musculoskeletal: No clubbing, No contractures Integumentary: No rashes, No cyanosis Neurological: Normal speech Laboratory Data (last 24 hrs) 11/18/17 00:40: PT 13.2 H, INR 1.12, APTT 30.5 11/18/17 00:40: WBC 7.3 D, Hgb 8.6 L, Hct 26.3 L, Plt Count 219 11/18/17 00:40: B-Natriuretic Peptide 5361 H 11/18/17 00:40: Sodium 141, Potassium 4.3, BUN 76 H D, Creatinine 11.59 H* D, Glucose 102, Magnesium 1.9, Total Bilirubin 0.4, AST 65 H, ALT 63 H, Alkaline Phosphatase 125 H Imagings Data: EXAM DESCRIPTION: [facility] Single View11/18/2017 1:00 am CLINICAL HISTORY: Shortness of breath COMPARISON: Nov 04 2017 FINDINGS: Extensive bilateral pulmonary opacities are present. The heart is enlarged. A central venous catheter remains in place. IMPRESSION: Extensive bilateral pulmonary opacities probably represent pulmonary edema. Pneumonia can also have this appearance Conclusions/Impression: A/ ESRD on HD. HTN with CKD. Acidosis. Diastolic CHF, A/C. Anemia in CKD. GRAY/ Secondary HyperPTH. HyperPO4. P/ Continue current POC and Medications. Arrange for acute HD. Next HD tomorrow. Seen and examined on HD. Give PRBCs X2 with HD. Restart home medications as indicated. Give Epo. No NSAIDs. AM labs. Daily weight. Thank you kindly for the consultation.
--- NOTE | 2017-11-19 07:31 | P.DS ---
Discharge Date: 11/18/17 Disposition: ROUTINE DISCHARGE Discharge Condition: GOOD Reason for Admission: Volume overload/ESRD - Problems (1) Acute pulmonary edema Onset Date: 05/13/17 Status: Acute (2) End-stage renal disease Onset Date: 10/21/17 Status: Acute (3) Fluid overload Onset Date: 11/18/17 Status: Acute (4) Pulmonary edema Onset Date: 10/21/17 Status: Acute Qualifiers: (5) Pulmonary hypertension Onset Date: 09/13/17 Status: Chronic (6) Afib Status: Resolved Qualifiers: (7) Malignant hypertension Onset Date: 08/07/17 Status: Acute Brief History of Present Illness: Patient is a 42-year-old gentleman who was admitted to the hospital with volume overload. Patient was recently started on hemodialysis and has been going to the hemodialysis clinic lately. Over the we can, he was going to watching his son play baseball. He states that during the week and his volume intake was higher than it should then. This resulted in him going into volume overload. He was started on BiPAP in the emergency room. He came into the emergency room and we gave him IV diuretics. His symptoms are improving. Await hemodialysis this morning and possible discharge after hemodialysis is completed Hospital Course: Patient did well during his hospital stay. He was initially given IV Lasix and made a few 100 cc of urine. Afterwards he was dialyzed. He was re- educated on the amount of fluids to take and how to use Lasix in addition if he starts feeling short of breath prior to coming to the hospital. Clinically he appears to be doing better and will be discharged home once dialysis is completed. Vital Signs/Physical Exam: Temp Pulse Resp BP Pulse Ox 98.7 F 83 18 179/96 H 96 11/18/17 20:00 11/18/17 20:30 11/18/17 20:00 11/18/17 20:30 11/18/17 20:00 General: Alert, In no apparent distress, Oriented x3 Laboratory Data at Discharge: WBC 6.0 K/uL (4.3-10.9) D 11/18/17 10:38 Hgb 7.2 g/dL (13.6-17.9) L* 11/18/17 10:38 Hct 22.4 % (39.6-49.0) L 11/18/17 10:38 Plt Count 180 K/uL (152-406) 11/18/17 10:38 PT 13.2 SECONDS (9.5-12.5) H 11/18/17 00:40 INR 1.12 11/18/17 00:40 APTT 30.5 SECONDS (24.3-36.9) 11/18/17 00:40 Sodium 141 mEq/L (135-145) 11/18/17 10:38 Potassium 4.7 mEq/L (3.6-5.0) 11/18/17 10:38 BUN 79 mg/dL (6-20) H 11/18/17 10:38 Creatinine 11.80 mg/dL (0.61-1.24) H* 11/18/17 10:38 Glucose 89 mg/dL (65-120) 11/18/17 10:38 Phosphorus 8.0 mg/dL (2.5-4.3) H 11/18/17 10:38 Magnesium 1.9 mg/dL (1.8-2.5) 11/18/17 10:38 Total Bilirubin 0.4 mg/dL (0.3-1.2) 11/18/17 00:40 AST 65 IU/L (10-42) H 11/18/17 00:40 ALT 63 IU/L (10-60) H 11/18/17 00:40 Alkaline Phosphatase 125 IU/L (42-121) H 11/18/17 00:40 B-Natriuretic Peptide 5361 pg/ml (<=100) H 11/18/17 00:40 Home Medications: Calcitriol [Rocaltrol] 0.5 mcg PO DAILY 11/04/17 Hydralazine HCl [Apresoline] 100 mg PO TID 11/04/17 Metoprolol Succinate [Toprol Xl*] 100 mg PO BID 11/04/17 Nifedipine [Nifedipine ER] 90 mg PO BID 11/04/17 Sevelamer Carbonate [Renvela*] 1,600 mg PO TID 11/04/17 Terazosin HCl 5 mg PO BID 11/04/17 Furosemide 40 mg PO DAILY #30 tablet 11/18/17 Ramipril [Altace] 10 mg PO 11/18/17 New Medications: Furosemide 40 mg PO DAILY #30 tablet Patient Discharge Instructions: OK TO DC IV AND DC HOME after hemodialysis and if okay with Nephrology. FOLLOW-UP WITH PRIMARY CARE PROVIDER IN 1-2 WEEKS. FOLLOW-UP WITH Nephrology in 1-[address] or TEXT [address] CASTAÑEDA AT [phone] IF ANY QUESTIONS REGARDING HOSPITAL STAY. PLEASE CALL THE FLOOR AT IF ANY MEDICATION OR NURSING QUESTIONS. Diet: Renal Activity: Fall precautions Followup: Fredrick Lomeli DO [Primary Care Provider] - 1-2 Weeks (call the office to make an appointment in 1-2 weeks. ) Time spent managing pt's care (in minutes): 30
== END 2017-11-18 22:21 | disposition home or self-care (01) ==
LOC: ER 00:06 → ERHOLD 02:10 → 4TH 03:11
PROVIDERS: ADMIT Hospitalist; ATTEND Hospitalist
PROC: 30233H1 Transfusion of Nonautologous Whole Blood into Peripheral Vein, Percutaneous Approach (ICD-10-PCS; principal; 2017-11-18)
PROC: 5A1D70Z Performance of Urinary Filtration, Intermittent, Less than 6 Hours Per Day (ICD-10-PCS; 2017-11-18)
DX: I13.2 Hypertensive heart and chronic kidney disease with heart failure and with stage 5 chronic kidney disease, or end stage renal disease (principal); N18.6 End stage renal disease; I50.33 Acute on chronic diastolic (congestive) heart failure; D63.1 Anemia in chronic kidney disease
CPT/HCPCS: 36415; 36430; 71045; 80048; 80076; 82550; 82553; 82805; 83735; 83880; 84100; 84484; 85025; 85610; 85730; 86850; 86900; 86901; 90935; 93005; 94660; 96365; 96375; 99285; G0378; J0360; J2270; P9016; Q4081

== ENCOUNTER 2018-02-04 01:50 | Observation (INO) | payer OTHER ==
--- OUTSIDE RECORDS SUMMARY | 2018-02-04 01:52 | XMS REPORT | Clinical Summary ---
:1975 Author Organization [facility] Address [address] [place] [address] Phone Care Team Providers Name Role Phone Unavailable Primary Care Provider Unavailable Allergies No Known Allergies Current Medications Not on file Active Problems Not on file Encounters Date Type Specialty Care Team Description 01/08/2018 Documentation Transplant Andressa Mina 01/01/2018 Office Visit Transplant ESRD (end stage renal disease) on dialysis (HCC) (Primary Dx);Pre-transplant evaluation for chronic kidney disease;Hypertensive renal disease 01/01/2018 Telephone Transplant Elva Ruiz Kidney Transplant Pre- evaluation 12/31/2017 Documentation Transplant Andressa Mina 12/27/2017 Abstract Transplant Elva Ruiz 12/18/2017 Abstract Transplant Elva Ruiz 12/09/2017 Telephone Transplant Elva Ruiz Kidney Transplant Pre- evaluation 12/09/2017 Abstract Elva Trimble after 02/03/2017 Social History Tobacco Use Types Packs/Day Years Used Date Never Assessed Sex Assigned at Date Recorded Not on file Last Filed Vital Signs Vital Sign Reading Time Taken Blood Pressure - - Pulse - - Temperature - - Respiratory Rate - - Oxygen Saturation - - Inhaled Oxygen Concentration - - Weight 86.2 kg (190 lb) 12/09/2017 2:49 PM CDT Height 185.4 cm (6' 1") 12/09/2017 2:49 PM CDT Body Mass Index 25.07 12/09/2017 2:49 PM CDT Plan of Treatment Date Type Specialty Care Team Description 02/07/2018 Orders Only Lab Lnidsey Almonte MD [address] [id number] 02/07/2018 Appointment Cardiology Lindsey Almonte MD [address] [id number] 02/07/2018 Appointment Cardiology Lindsey Almonte MD [address] [phone] 02/07/2018 Appointment Lindsey Almonte MD [address] [id number] 02/07/2018 Appointment Radiology Lindsey Almonte MD [address] [phone] 02/26/2018 Office Visit Transplant 02/26/2018 Orders Only Transplant Hepatology Results Not on fileafter 02/03/2017
[2018-02-04] MEDS ORDERED: ACETAMINOPHEN 325 MG TABLET ONE (02:42)
[2018-02-04] MEDS ORDERED: VANCOMYCIN 1 GM/250 ML BAG ONE (04:06)
[2018-02-04] MEDS ORDERED: PIPER/TAZO/NS 2.25gm 2.25 GM/50 ML BAG ONE (04:06)
[2018-02-04 04:11] LABS: Absolute Lymphocytes (CBC) 0.7 K/uL (0.7-4.9); Absolute Neutrophil 8.9 K/uL (1.8-8.0); Basophils % 0.3 % (0-1.3); Eosinophils % 0.8 % (0-4.4); Hematocrit 30.2 % (39.6-49.0); Lymphocytes % 6.6 % (15.3-44.8); MCH 28.3 pg (27.0-35.0); MCV 83.6 fL (80-100); MPV 8.4 fL (7.6-11.3); Monocytes % 9.6 % (3.3-12.3); RBC Red Blood Cell Count 3.62 M/uL (4.33-5.43)
[2018-02-04] MEDS ORDERED: ACETAMINOPHEN 500 MG TAB PO PRN (04:24)
[2018-02-04] MEDS ORDERED: ONDANSETRON 4 MG/2 ML VIAL IV PRN (04:24)
--- NOTE | 2018-02-04 04:30 | EDPHYS ---
Physician Documentation [facility] Name: Jermaine Rivera Age: 42 yrs Sex: Male : 1975 Arrival Date: 02/04/2018 Time: 01:51 Bed 15 Private MD: ED Physician Yonis Edward HPI: 02/04 06:02 This 42 yrs old Black Male presents to ER via Ambulatory with complaints of Shortness tw4 Of Breath. 06:02 The patient has shortness of breath at rest. Onset: The symptoms/episode began/occurred tw4 today. Duration: The symptoms are continuous, and are unchanged since they started. The patient's shortness of breath has no apparent modifying factors. Associated signs and symptoms: The patient has no apparent associated signs or symptoms. Severity of symptoms: At their worst the symptoms were mild. The patient has not experienced similar symptoms in the past. Historical: - Allergies: 02:11 No Known Allergies; bs1 - Home Meds: 02:11 metoprolol tartrate 50 mg Oral tab 2 tabs 2 times per day [Active]; nifedipine 90 mg bs1 Oral TbER 1 tab twice a day [Active]; hydralazine 100 mg Oral tab 1 tab 3 times per day [Active]; terazosin 5 mg Oral cap 2 caps twice a day [Active]; Crystal-Angie oral oral [Active]; Renagel Oral [Active]; - PMHx: 02:11 Dialysis; Hypertension; Renal Disease; bs1 - PSHx: 02:11 dialysis port; foot sx; bs1 - Immunization history:: Adult Immunizations up to date. - Social history:: Smoking status: Patient/guardian denies using tobacco. - Ebola Screening: : Patient negative for fever greater than or equal to 101.5 degrees Fahrenheit, and additional compatible Ebola Virus Disease symptoms Patient denies exposure to infectious person. ROS: 06:02 Constitutional: Negative for fever, chills, and weight loss, Cardiovascular: Negative tw4 for chest pain, palpitations, and edema, Abdomen/GI: Negative for abdominal pain, nausea, vomiting, diarrhea, and constipation, Back: Negative for injury and pain. 06:02 MS/Extremity: Negative for injury and deformity, Skin: Negative for injury, rash, and discoloration, Neuro: Negative for headache, weakness, numbness, tingling, and seizure. 06:02 : Positive for testicular pain Exam: 06:02 Constitutional: This is a well developed, well nourished patient who is awake, alert, tw4 and in no acute distress. Head/Face: Normocephalic, atraumatic. Chest/axilla: Normal chest wall appearance and motion. Nontender with no deformity. No lesions are appreciated. Cardiovascular: Regular rate and rhythm with a normal S1 and S2. No gallops, murmurs, or rubs. Normal PMI, no JVD. No pulse deficits. Respiratory: Lungs have equal breath sounds bilaterally, clear to auscultation and percussion. No rales, rhonchi or wheezes noted. No increased work of breathing, no retractions or nasal flaring. Abdomen/GI: Soft, non-tender, with normal bowel sounds. No distension or tympany. No guarding or rebound. No evidence of tenderness throughout. 06:02 : Male external genitalia: swelling, of the right testicle is noted, scrotal, is noted in the right inguinal area, that is moderate, tenderness. Vital Signs: 02:00 BP 136 / 74; Pulse 89; Resp 18; Temp 100.4(O); Pulse Ox 97% on R/A; Weight 83.46 kg; bs1 Height 6 ft. 1 in. (185.42 cm); Pain 5/10; 03:00 BP 124 / 61; Pulse 85; Resp 16; Pulse Ox 97% on R/A; bs1 03:40 BP 118 / 56; Pulse 78; Resp 16; Pulse Ox 99% on R/A; bs1 03:46 Temp 99.5(O); bs1 04:40 BP 126 / 71; Pulse 75; Resp 16; Pulse Ox 97% on R/A; bs1 05:40 BP 125 / 66; Pulse 78; Resp 16; Pulse Ox 96% on R/A; bs1 06:00 BP 132 / 65; Pulse 75; Resp 16 S; Pulse Ox 92% on R/A; bs1 07:15 BP 125 / 65; Pulse 79; Resp 18; Temp 98.5(O); Pulse Ox 96% on R/A; Pain 0/10; cc3 02:00 Body Mass Index 24.28 (83.46 kg, 185.42 cm) bs1 MDM: 01:52 Patient medically screened. tw4 06:02 Differential diagnosis: Anemia Anxiety Reaction reactive airway disease. Data reviewed: tw4 vital signs, nurses notes. Data interpreted: Pulse oximetry: Interpretation: normal. Counseling: I had a detailed discussion with the patient and/or guardian regarding: the historical points, exam findings, and any diagnostic results supporting the discharge/admit diagnosis. Physician consultation: Alta Pace MD regarding admission, need to evaluate the patient as soon as possible, and will see patient in inpatient room. 02/04 03:15 Order name: CBC with Diff; Complete Time: 04:24 tw4 02/04 03:15 Order name: CMP tw4 02/04 03:15 Order name: Blood Culture Adult (2) tw 02/04 04:28 Order name: CBC with Automated Diff EDMS 02/04 04:28 Order name: CBC with Automated Diff EDWI 02/04 04:28 Order name: Comprehensive Metabolic Panel EDWI 02/04 02:01 Order name: Chest Single View XRAY tw 02/04 03:32 Order name: US Scrotum Testicles tw4 02/04 04:28 Order name: Comprehensive Metabolic Panel EDMS 02/04 04:28 Order name: Protime (+INR) EDMS 02/04 04:28 Order name: Protime (+INR) EDWI 02/04 04:28 Order name: PTT, Activated Partial Thromb EDMS 02/04 04:28 Order name: PTT, Activated Partial Thromb EDMS 02/04 03:18 Order name: EKG; Complete Time: 03:18 ak1 02/04 03:18 Order name: EKG - Nurse/Tech; Complete Time: 03:18 ak1 02/04 04:28 Order name: CONS Pharmacy Consult EDMS 02/04 04:28 Order name: CONS Physician Consult EDMS 02/04 04:28 Order name: Renal EDMS EC:06 Rate is 86 beats/min. Rhythm is regular. QRS [place] is Normal. DE interval is normal. QRS tw4 interval is normal. QT interval is normal. No Q waves. T waves are Inverted in leads V2, V4, V5, V6. No ST changes noted. Clinical impression: Abnormal EKG without significant change. Interpreted by me. Reviewed by me. Administered Medications: 02:39 Drug: Tylenol 650 mg Route: PO; bs1 03:45 Follow up: Response: No adverse reaction bs1 04:28 Drug: Zosyn 2.25 grams Route: IVPB; Infused Over: 60 mins; Site: right antecubital; bs1 06:14 Follow up: IV Status: Completed infusion bs1 05:02 Drug: vancoMYCIN 1 grams Route: IVPB; Infused Over: 2 hrs; Site: right antecubital; bs1 07:11 Follow up: IV Status: Completed infusion bs1 Disposition: 02/04/18 04:29 Hospitalization ordered by Alta Pace for Inpatient Admission. Preliminary diagnosis are Cellulitis of other sites, Cellulitis and acute lymphangitis of other sites, Chronic kidney disease, stage 5. - Bed requested for Telemetry/MedSurg (Inpatient). - Status is Inpatient Admission. hj - Condition is Stable. - Problem is new. - Symptoms are unchanged. UTI on Admission? No Signatures: Dispatcher [employer] EDMS Pia Sloan [place] rg2 Laura Helms RN RN ak1 Alex Ozuna RN RN hj Salazar, Brittany, RN RN bs1 Yonis Edward MD MD tw4 Corrections: (The following items were deleted from the chart) 06:22 04:29 Hospitalization Ordered by Alta Pace MD for Inpatient Admission. Preliminary rg2 diagnosis is Cellulitis of other sites; Cellulitis and acute lymphangitis of other sites; Chronic kidney disease, stage 5. Bed requested for Telemetry/MedSurg (Inpatient). Status is Inpatient Admission. Condition is Stable. Problem is new. Symptoms are unchanged. UTI on Admission? No. tw4 09:49 06:22 02/04/2018 04:29 Hospitalization Ordered by Alta Pace MD for Inpatient bd Admission. Preliminary diagnosis is Cellulitis of other sites; Cellulitis and acute lymphangitis of other sites; Chronic kidney disease, stage 5. Bed requested for [facility] ER HOLD. Status is Inpatient Admission. Condition is Stable. Problem is new. Symptoms are unchanged. UTI on Admission? No. rg2 11:31 09:49 02/04/2018 04:29 Hospitalization Ordered by Alta Pace MD for Inpatient hj Admission. Preliminary diagnosis is Cellulitis of other sites; Cellulitis and acute lymphangitis of other sites; Chronic kidney disease, stage 5. Bed requested for Telemetry/MedSurg (Inpatient). Status is Inpatient Admission. Condition is Stable. Problem is new. Symptoms are unchanged. UTI on Admission? No. bd
--- NOTE | 2018-02-04 04:30 | ER ---
Nurse's Notes [facility] Name: Jermaine Rivera Age: 42 yrs Sex: Male : 1975 Arrival Date: 02/04/2018 Time: 01:51 Bed 15 Private MD: Diagnosis: Cellulitis of other sites;Cellulitis and acute lymphangitis of other sites;Chronic kidney disease, stage 5 Presentation: 02/04 02:06 Presenting complaint: Patient states: "I have been feeling short of breathe for about 2 bs1 days, I was out in the heat and I think I drank too much water, I also think I have a staph infection on my testicle.". Transition of care: patient was not received from another setting of care. Onset of symptoms was February 02, 2018. Risk Assessment: Do you want to hurt yourself or someone else? Patient reports no desire to harm self or others. Initial Sepsis Screen: Does the patient meet any 2 criteria? Temp <36.0*C (96.8*F)) or > 38.3*C (100.4*F). Does the patient have a suspected source of infection? No. Patient's initial sepsis screen is negative. Care prior to arrival: None. 02:06 Method Of Arrival: Ambulatory bs1 02:06 Acuity: FERNANDA 3 bs1 Triage Assessment: 02:34 General: Appears in no apparent distress. Respiratory: Onset: The symptoms/episode bs1 began/occurred gradually, the patient has mild shortness of breath. Respiratory: Reports shortness of breath at rest on exertion Airway is patent. Historical: - Allergies: 02:11 No Known Allergies; bs1 - Home Meds: 02:11 metoprolol tartrate 50 mg Oral tab 2 tabs 2 times per day [Active]; nifedipine 90 mg bs1 Oral TbER 1 tab twice a day [Active]; hydralazine 100 mg Oral tab 1 tab 3 times per day [Active]; terazosin 5 mg Oral cap 2 caps twice a day [Active]; Crystal-Angie oral oral [Active]; Renagel Oral [Active]; - PMHx: 02:11 Dialysis; Hypertension; Renal Disease; bs1 - PSHx: 02:11 dialysis port; foot sx; bs1 - Immunization history:: Adult Immunizations up to date. - Social history:: Smoking status: Patient/guardian denies using tobacco. - Ebola Screening: : Patient negative for fever greater than or equal to 101.5 degrees Fahrenheit, and additional compatible Ebola Virus Disease symptoms Patient denies exposure to infectious person. Screenin:29 Abuse screen: Denies threats or abuse. Denies injuries from another. Nutritional bs1 screening: No deficits noted. Tuberculosis screening: No symptoms or risk factors identified. Fall Risk None identified. Assessment: 02:13 General: Appears in no apparent distress. uncomfortable, Behavior is calm, cooperative, bs1 appropriate for age. Pain: Complains of pain in testicle. Neuro: Level of Consciousness is awake, alert, obeys commands, Oriented to person, place, time, situation, Appropriate for age. Cardiovascular: Denies chest pain, shortness of breath, Heart tones S1 S2 present Capillary refill < 3 seconds Edema is 2+ to left ankle, left foot, right ankle and right foot Rhythm is regular. Respiratory: Reports shortness of breath at rest on exertion Airway is patent Trachea midline Respiratory effort is even, unlabored, Respiratory pattern is regular, symmetrical, Breath sounds are clear bilaterally. GI: No signs and/or symptoms were reported involving the gastrointestinal system. : Reports pain testicle. EENT: No signs and/or symptoms were reported regarding the EENT system. Derm: No signs and/or symptoms reported regarding the dermatologic system. Musculoskeletal: Capillary refill < 3 seconds, Range of motion: intact in all extremities. 03:30 Reassessment: Per patient, he did not want a female in the room to examine his bs1 testicles with Dr Edward. Dr Edward and [facility] at bedside. 05:04 Reassessment: pending results of US. Patient admitted to hospital ER Hold. bs1 06:09 Reassessment: Patient appears in no apparent distress at this time. Pending Bed bs1 assignment, patient resting in bed. No further needs. 07:10 Reassessment: Report given to CHRISTOPHE Johnson. bs1 07:15 Reassessment: Patient appears in no apparent distress at this time. Patient and/or cc3 family updated on plan of care and expected duration. Pain level reassessed. Patient is alert, oriented x 3, equal unlabored respirations, skin warm/dry/pink. Received from film processing shift supervisor with IV cannula gauge 20 at the right antecubital area, with right upper chest porth for hemodialysis access noted, with dressing dry and intact. Patient denies pain at this time. 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 11:00 Reassessment: Patient admitted to room 205 in stable condition and not in distress and cc3 report handed over to RN Merlyn Harrison for continuity of care. Vital Signs: 02:00 BP 136 / 74; Pulse 89; Resp 18; Temp 100.4(O); Pulse Ox 97% on R/A; Weight 83.46 kg; bs1 Height 6 ft. 1 in. (185.42 cm); Pain 5/10; 03:00 BP 124 / 61; Pulse 85; Resp 16; Pulse Ox 97% on R/A; bs1 03:40 BP 118 / 56; Pulse 78; Resp 16; Pulse Ox 99% on R/A; bs1 03:46 Temp 99.5(O); bs1 04:40 BP 126 / 71; Pulse 75; Resp 16; Pulse Ox 97% on R/A; bs1 05:40 BP 125 / 66; Pulse 78; Resp 16; Pulse Ox 96% on R/A; bs1 06:00 BP 132 / 65; Pulse 75; Resp 16 S; Pulse Ox 92% on R/A; bs1 07:15 BP 125 / 65; Pulse 79; Resp 18; Temp 98.5(O); Pulse Ox 96% on R/A; Pain 0/10; cc3 02:00 Body Mass Index 24.28 (83.46 kg, 185.42 cm) bs1 ED Course: 01:51 Patient arrived in ED. ds1 01:52 Yonis Edward MD is Attending Physician. tw4 02:06 Aniya Bella, CHRISTOPHE is Primary Nurse. bs1 02:08 Triage completed. bs1 02:16 X-ray completed. Portable x-ray completed in exam room. Patient tolerated procedure kw well. 02:17 Chest Single View XRAY In Process Unspecified. EDMS 02:29 Patient has correct armband on for positive identification. Bed in low position. Call bs1 light in reach. Side rails up X 1. Pulse ox on. NIBP on. 02:29 Arm band placed on right wrist. bs1 03:40 Inserted saline lock: 20 gauge in right antecubital area, using aseptic technique. bs1 Blood collected. 03:55 First set of blood cultures drawn by me, Second set of blood cultures drawn by me. bs1 04:01 US Scrotum Testicles In Process Unspecified. EDMS 04:25 Ultrasound completed. hr 04:28 Alta Pace MD is Hospitalizing Provider. tw4 04:32 Notified ED physician of a critical lab result(s). creatinine 15.8, no further orders. bs1 06:09 No provider procedures requiring assistance completed. Patient admitted, IV remains in bs1 place. intact. Administered Medications: 02:39 Drug: Tylenol 650 mg Route: PO; bs1 03:45 Follow up: Response: No adverse reaction bs1 04:28 Drug: Zosyn 2.25 grams Route: IVPB; Infused Over: 60 mins; Site: right antecubital; bs1 06:14 Follow up: IV Status: Completed infusion bs1 05:02 Drug: vancoMYCIN 1 grams Route: IVPB; Infused Over: 2 hrs; Site: right antecubital; bs1 07:11 Follow up: IV Status: Completed infusion bs1 Outcome: 04:29 Decision to Hospitalize by Provider. tw4 11:00 Admitted to Med/surg accompanied by nurse, via wheelchair, room 205, Other with SBAR cc3 Report called to CHRISTOPHE Harrison 11:00 Condition: stable 11:00 Instructed on the need for admit. 11:31 Patient left the ED. Signatures: Dispatcher [employer] EDVT Vania Zepeda Demi ds1 Dionna Vidal Henry RN RN hj Aniya Bella RN RN bs1 Yonis Edward MD MD tw4 Joyce Abdul cc3
[2018-02-04 04:31] LABS: Albumin 3.2 g/dL (3.4-5.0); Bilirubin Total 0.6 mg/dL (0.2-1.0); Potassium 4.2 mmol/L (3.5-5.1); Protein, Total 6.8 g/dL (6.4-8.2)
[2018-02-04] MEDS ORDERED: VANCOMYCIN 1 GM in NA CHLORIDE 0.9% 250 ML IVPB SCH (05:00)
--- NOTE | 2018-02-04 06:44 | EKG ---
Test Date: 2018-02-04 Test Time: 02:03:52 Substation Manager: HARSHA MEASUREMENT RESULTS: Intervals: Rate: 86 VA: 134 QRSD: 86 QT: 380 QTc: 454 [place]: P: 75 VA: 134 QRS: 0 T: 93 INTERPRETIVE STATEMENTS: Sinus rhythm with premature atrial complexes Nonspecific T wave abnormality Abnormal ECG Compared to ECG 11/18/2017 00:24:28 Atrial premature complex(es) now present Ventricular premature complex(es) no longer present Prolonged QT interval no longer present T-wave abnormality still present Electronically Signed On 02-04-18 06:44:03 CDT by Naveen Vasquez
[2018-02-04] MEDS ORDERED: PNEUMOCOCCAL VACCINE 0.5 ML IMVAC ONE (08:00)
[2018-02-04] MEDS ORDERED: Levofloxacin500mg IV 500 MG/100 ML BAG IV ONE ×2 (08:00→08:57)
--- NOTE | 2018-02-04 08:08 | RAD REPORT ---
EXAM DESCRIPTION: US - Scrotum Testicles - 02/04/2018 4:18 am CLINICAL HISTORY: PAIN<Reason For Exam>PAIN Right-sided scrotal pain and swelling COMPARISON: No comparisons<Comparisons> FINDINGS: Right testicle is 3.7 x 2.0 x 2.9 cm. Left testicle is 2.4 x 3.0 x 1.8 cm. No focal intrat esticular mass lesion. Doppler evaluation shows both testicles to be hyperemic. There is prominent ed wilmar and hypervascularity of the surrounding scrotal wall tissue. There is hyperemia of the extratesti cular tissue. This is probably enlarged and hyperemic epididymal tissue. Clearly discrete or distinct margins of the epididymal tissue not seen. Patient may have a left varicocele. This is difficult to analyze in the setting of edematous and hyperemic tissue. No discrete, drainable fluid collections se en. . IMPRESSION: Hyperemic testicular and epididymal tissue consistent with an epididymo orchitis pattern . No torsion or focal testicular mass. Diffuse scrotal wall thickening and edema with hyperemia of the extratesticular tissue as well. A discrete abscess or drainable fluid collection is not seen.
[2018-02-04] MEDS ORDERED: ASPIRIN EC 81 MG TAB PO ONE (08:43)
--- NOTE | 2018-02-04 09:26 | RAD REPORT ---
EXAM DESCRIPTION: RAD - Chest Single View - 02/04/2018 2:17 am CLINICAL HISTORY: SOB<Reason For Exam>SOB COMPARISON: Chest Single View dated 11/18/2017; Chest Single View dated 11/04/2017; Chest Single View dated 10/22/2017; Chest Single View dated 10/21/2017<Comparisons> TECHNIQUE: AP portable chest image was obtained 0211 hours . FINDINGS: No focal mass or consolidation. There is some hazy opacification over the lower lung field s. Dialysis catheter is in place. Cardiomegaly is present without significant vascular engorgement. H eart size and vasculature are slightly less than seen on November 18. No measurable pleural effusion and no pneumothorax. No gross bony abnormality seen. No acute aortic findings suspected. IMPRESSION: Cardiomegaly and mild vascular engorgement improved from the November 18 study. Hazy a lung base opacification. A mild failure or volume overload is suspected.
--- NOTE | 2018-02-04 09:50 | P.HP ---
Certification for Inpatient Patient admitted to: Inpatient With expected LOS: >2 Midnights Patient will require the following post-hospital care: None Practitioner: I am a practitioner with admitting privileges, knowledge of patient current condition, hospital course, and medical plan of care. Services: Services provided to patient in accordance with Admission requirements found in Title 42 Section 412.3 of the Code of Federal Regulations Patient History Date of Service: 02/04/18 Reason for admission: Scrotal cellulitis History of Present Illness: Patient is a 42-year-old gentleman who comes into the hospital with fever shakes and chills. Patient apparently has missed dialysis over the last week although he did go on his last dialysis session on Saturday. He apparently had been out of town on vacation so he missed a few of his dialysis sessions over the last couple weeks. He has become more swollen and edematous in his lower extremity. He also developed some scrotal edema. He started developing fever shakes and chills. It appears he has some cellulitic changes of the scrotum. He will be admitted to the hospital with IV antibiotic therapy and will get urology consultation. Will also do blood cultures. Will look for other sources of infection as he does have some mild erythema but no significant tenderness is noted. Patient has been not compliant with his medical care for quite a while. He jeopardizes his health whenever he becomes not compliant and we have spoken to him regarding this. Hopefully he starts becoming more compliant with his care in the future. Allergies No Known Allergies Allergy (Verified 11/04/17 08:13) Home Medications: Hydralazine HCl [Apresoline] 100 mg PO TID 11/04/17 Metoprolol Succinate [Toprol Xl*] 50 mg PO BID 11/04/17 Nifedipine [Nifedipine ER] 90 mg PO BID 11/04/17 Terazosin HCl 10 mg PO BID 11/04/17 Minoxidil [Loniten*] 2.5 mg PO DAILY 02/04/18 Sevelamer HCl [Renagel] 800 mg PO TID 02/04/18 - Past Medical/Surgical History Has patient received pneumonia vaccine in the past: No Diabetic: No -: Hypertension -: End-stage renal disease -: Diastolic CHF -: Anemia of chronic disease -: Thrombocytopenia -: pulmonary edema -: hx-afib- resolved -: Left foot sx -: dialysis access-right chest wall Psychosocial/ Personal History: The patient is single. He has 9 children. He does not work. He recently got out of shelter in May of 2016. - Family History Mother Medical History: Heart disease, Hypertension, Kidney disease - Social History Smoking Status: Never smoker Alcohol use: No CD- Drugs: No Caffeine use: No Place of Residence: Home Review of Systems 10-point ROS is otherwise unremarkable Physical Examination - Vital Signs Temperature: 99.9 F Blood Pressure: 150/80 Pulse: 99 Respirations: 18 Pulse Ox (%): 98 - Physical Exam General: Alert, In no apparent distress, Oriented x3 HEENT: Atraumatic, PERRLA, Mucous membr. moist/pink, EOMI, Sclerae nonicteric Neck: Supple, 2+ carotid pulse no bruit, No LAD, Without JVD or thyroid abnormality Respiratory: Clear to auscultation bilaterally, Normal air movement Cardiovascular: Regular rate/rhythm, Normal S1 S2 Gastrointestinal: Normal bowel sounds, Soft and benign, Non-distended, No tenderness Musculoskeletal: No clubbing, No tenderness, Swelling Integumentary: No rashes, No breakdown, No significant lesion Neurological: Normal gait, Normal speech, Normal strength at 5/5 x4 extr, Normal tone, Sensation intact, Cranial nerves 3-12 intact, Normal affect Lymphatics: No axilla or inguinal lymphadenopathy External genitalia: Edema, Tenderness, Other (Scrotal edema) - Studies Laboratory Data (last 24 hrs) 02/04/18 03:40: Sodium 138, Potassium 4.2, BUN 75 H, Creatinine 15.80 H*, Glucose 103, Total Bilirubin 0.6, AST 27, ALT 28, Alkaline Phosphatase 89 02/04/18 03:40: WBC 10.7, Hgb 10.2 L, Hct 30.2 L, Plt Count 161 Male Exam - Male Exam Scrotum: Edema, Tenderness Assessment & Plan - Problems (Diagnosis) (1) Scrotal edema Current Visit: Yes Status: Acute (2) Fluid overload Current Visit: Yes Status: Acute (3) End-stage renal disease Onset Date: 10/21/17 Current Visit: No Status: Acute (4) Fever Onset Date: 08/07/17 Current Visit: No Status: Acute (5) Malignant hypertension Onset Date: 08/07/17 Current Visit: No Status: Acute (6) HTN (hypertension) Onset Date: 10/21/17 Current Visit: No Status: Chronic Qualifiers: - Plan Plan: 1. IV antibiotics 2. Pain control 3. Nephrology consultation 4. Urology consultation 5. Blood culture x2 6. Monitor for other source of infection 7. Strict blood pressure and blood sugar control 8. GI and DVT prophylax Discharge Plan: Home Plan to discharge in: Greater than 2 days - Advance Directives Does patient have a Living Will: No Does patient have a Durable POA for Healthcare: Yes - Code Status/Comfort Care Code Status Assessed: Yes Code Status: Full Code Critical Care: No Time Spent Managing PTS Care (In Minutes): 50
[2018-02-04] MEDS ORDERED: MANNITOL 25% 12.5 GM/50 ML VIAL IV PRN (13:29)
[2018-02-04] MEDS ORDERED: NA CHLORIDE 0.9% 1,000 ML IV PRN (13:29)
[2018-02-04] MEDS ORDERED: EPOETIN ALFA 10,000 UNIT/ML VIAL IV SCH (13:30)
[2018-02-04] MEDS ORDERED: ALBUMIN HUMAN 25% 50 ML IV SCH (14:00)
--- NOTE | 2018-02-04 15:44 | CON ---
History Of Present Illness: A 42-year-old gentleman, history of hypertension, on dialysis, missed dialysis over the last week, he was out of town on vacation , he thought he could do without it and now he comes in with a fever, shakes, right scrotal cellulitis and scrotal edema, also trouble breathing. He said he was admitted to the hospital for IV antibiotic therapy. I was consulted for the scrotum. Normally he does not have any kidney stones or urinary issues. He urinates about 2 cups of urine a day due to being on dialysis 3 times daily. But he says when he drinks any extra fluid he swells up, feet falls up. He has been noncompliant with therapy. Hopefully, he will become more compliant now. Allergies: NO KNOWN DRUG ALLERGIES. Home Medication: Hydralazine, metoprolol, nifedipine, terazosin, minoxidil, sevelamer. Past Medical History: Hypertension, end-stage renal disease, diastolic CHF, anemia of chronic disease, thrombocytopenia, pulmonary edema. History of atrial fibrillation, resolved. Left foot symptoms. Dialysis access to the right chest wall. Psychosocial History: He is single, has 9 children. He does not work. He is recently out of senior care in 2015. Family History: Significant for heart disease, hypertension, kidney disease. Social History: Never smoked. No alcohol. No drug use. No caffeine use. Resides at home. Review of Systems: A 10-point review of systems unremarkable. Physical Examination: Vital Signs: Temperature 99.9, BP 150/80, pulse 99, respirations 18. General Appearance: In no acute distress. Alert and oriented x3. Normal appearing male. HEENT: Atraumatic, normocephalic. Neck: Supple. Respiratory: Clear. Cardiovascular: S1, S2. Gastrointestinal: Soft, benign. Musculoskeletal: No clubbing. Skin: No breakdown. Rash in the right scrotum. Neurologic: Alert and oriented. Lymphatics: Negative. External Genitalia: Left testicle palpable, nontender. Right scrotum is swollen, not red, nontender. Right testis not palp due to swelling of scrotal skin. Phallus normal. Laboratory Data: White count 10.7, H and H 10 and 30, platelet count 161. Chemistry: Sodium 131, potassium 4.3, chloride 103, carbon dioxide 22, BUN 75, creatinine 15.8, GFR 4, ___. Glucose 103, calcium 8.6. No urine studies so far. Assessment: Right scrotal cellulitis. The patient is on gram negative coverage and will add vancomycin. I will just see how he does, try to send a UA , micro and culture if possible. He also needs to be dialyzed. We will follow the patient with you. Also scrotal support recommended. RICO/ANTHONY Voice ID: [id number] Report ID: [id number] MTDD
[2018-02-04] MEDS: SEVELAMER CARBONATE 800 MG TABLET PO SCH (17:26)
[2018-02-05 05:24] VITALS: BMI 23.2
[2018-02-05 06:02] LABS: Absolute Lymphocytes (CBC) 0.4 K/uL (0.7-4.9); Absolute Monocytes 0.6 K/uL (0.1-1.3); Absolute Neutrophil 6.2 K/uL (1.8-8.0); Basophils % 0.4 % (0-1.3); Hematocrit 31.6 % (39.6-49.0); Lymphocytes % 5.2 % (15.3-44.8); MCV 82.9 fL (80-100); Monocytes % 8.5 % (3.3-12.3); RBC Red Blood Cell Count 3.82 M/uL (4.33-5.43)
[2018-02-05 06:07] LABS: Protime INR 1.17
[2018-02-05 06:11] LABS: Albumin 3.3 g/dL (3.4-5.0); Bilirubin Total 0.5 mg/dL (0.2-1.0); Potassium 3.6 mmol/L (3.5-5.1); Protein, Total 7.7 g/dL (6.4-8.2)
[2018-02-05] MEDS: SEVELAMER CARBONATE 800 MG TABLET PO SCH ×3 (08:31→17:21)
[2018-02-05] MEDS: CALCITROL 0.25 MCG CAP PO SCH (08:31)
[2018-02-05] MEDS: VITAMIN D 5,000 UNIT CAP PO SCH (08:31)
[2018-02-05] MEDS: HYDRALAZINE HCL 20 MG/ML VIAL ONE ×2 (11:36→13:08)
[2018-02-05] MEDS ORDERED: HYDRALAZINE HCL 20 MG/ML VIAL IV ONE (12:53)
[2018-02-05] MEDS ORDERED: NA CHLORIDE 0.9% 500 ML ONE (13:07)
[2018-02-05] MEDS ORDERED: BACITRACIN OINTMENT 15 GM TUBE TOP ONE (13:09)
[2018-02-05] MEDS ORDERED: LIDOCAINE 1% MPF 2 ML AMPULE ONE (13:09)
[2018-02-05] MEDS ORDERED: PROPOFOL 200 MG/20 ML VIAL IV ONE (13:14)
[2018-02-05] MEDS ORDERED: MIDAZOLAM HCL 2 MG/2 ML INJ ONE (13:15)
[2018-02-05] MEDS ORDERED: FENTANYL CITR 250 MCG/5 ML ONE (13:15)
[2018-02-05] MEDS ORDERED: ONDANSETRON HCL 40 MG/20 ML VIAL ONE (13:16)
[2018-02-05] MEDS: BUPIVACAINE 0.25% PF 10 ML VIAL ONE ×2 (13:26→13:50)
[2018-02-05] MEDS: HYDRALAZINE HCL 25 MG TABLET PO SCH ×2 (14:00→21:26)
[2018-02-05] MEDS ORDERED: HOME MED 1 EA UNK (Sevelamer Hcl 800 MG) PO SCH (14:00)
[2018-02-05] MEDS ORDERED: HOME MED 1 EA UNK (Hydralazine Hcl [Apresoline] 100 MG) PO SCH (14:00)
[2018-02-05] MEDS ORDERED: COLLAGENASE 30 GM OINTMENT TOP ONE (14:24)
--- NOTE | 2018-02-05 14:32 | P.OP ---
Preoperative diagnosis: Right Buttock Abscess Postoperative diagnosis: Right Buttock Abscess Primary procedure: Incision and Drainage of Right Buttock Abscess Anesthesia: GETA + Local Estimated blood loss: <10cc Specimen: cultures from buttock abscess obtained Findings: small ~3cm loculated abscess of right buttock Complications: None Transferred to: Recovery Room Condition: Good
--- NOTE | 2018-02-05 16:37 | P.PN ---
Subjective Date of Service: 02/05/18 Chief Complaint: Scrotal cellulitis Patient seen and examined at bedside with RN. Chart reviewed. No complaints to offer overnight. States that he has been feeling well overall. Has been having some purulent discharge in the right scrotal area. No other complaints to offer at this time. Review of Systems 10-point ROS is otherwise unremarkable General: As per HPI Physical Examination - Vital Signs Temperature: 98.3 F Blood Pressure: 185/97 Pulse: 97 Respirations: 20 Pulse Ox (%): 95 - Physical Exam General: Alert, In no apparent distress HEENT: Atraumatic, PERRLA, EOMI Neck: Supple, JVD not distended Respiratory: Clear to auscultation bilaterally, Normal air movement Cardiovascular: Regular rate/rhythm, Normal S1 S2 Gastrointestinal: Normal bowel sounds, Soft and benign, Non-distended, No tenderness Integumentary: No rashes, Tenderness/swelling, Erythema, Warmth Neurological: Normal speech, Normal tone, Normal affect Lymphatics: No axilla or inguinal lymphadenopathy - Studies Medications List Reviewed: Yes Assessment And Plan - Current Problems (Diagnosis) (1) Scrotal abscess Current Visit: Yes Status: Acute Plan: Scrotal abscess on physical examination. -urology consulted. Currently patient is made NPO for possible surgical procedure. -on IV Levaquin and vanc at this time. (2) Chronic renal disease Onset Date: 09/13/17 Current Visit: No Status: Acute Plan: Acute on chronic kidney disease. Patient missed dialysis for 1 week as he was out on vacation. -nephrology consulted will resume dialysis here in the hospital. Qualifiers: Chronic kidney disease stage: stage 5, not on chronic dialysis Qualified Code(s): N18.5 - Chronic kidney disease, stage 5 (3) CHF (congestive heart failure) Onset Date: 09/13/17 Current Visit: No Status: Chronic Qualifiers: Heart failure type: diastolic Heart failure chronicity: chronic Qualified Code(s): I50.32 - Chronic diastolic (congestive) heart failure (4) End stage renal disease Onset Date: 10/01/17 Current Visit: No Status: Chronic (5) HTN (hypertension) Onset Date: 10/21/17 Current Visit: No Status: Chronic Qualifiers: (6) Pulmonary hypertension Onset Date: 09/13/17 Current Visit: No Status: Chronic - Plan Currently awaiting clinical improvement. Patient scrotal area had purulent discharge today. Urology was consulted who recommended the patient be placed NPO and having a surgical procedure today. Currently awaiting surgical procedure. Initially patient did wanted to leave AMA however after having extensive conversation patient did agree to stay for the procedure and to talk to the urologist. Discharge Plan: Home Plan to discharge in: 48 Hours - Code Status/Comfort Care Code Status Assessed: Yes Critical Care: No
[2018-02-05] MEDS: NIFEDIPINE XL 90 MG TABLET PO SCH ×2 (17:22→21:27)
[2018-02-05] MEDS: METOPROLOL XL 50 MG TAB PO SCH ×2 (17:22→21:26)
--- NOTE | 2018-02-05 18:55 | CON ---
Date of Consultation: 02/05/2018 INTRAOPERATIVE SURGICAL CONSULTATION Brief History Of Present Illness: The patient is a 42-year-old gentleman who comes to the hospital with fever, shakes, and chills. He is dialysis dependent with a history of end-stage renal disease, who had missed his last week of dialysis while on vacation, and as such, came to the emergency room with shaking chills, some swelling, edema in lower extremities, scrotal edema, and jaime lulitic changes over the area of the scrotum. He was seen in the emergency room and admitted for ant ibiotics as well as initiation of dialysis. He has had some noncompliance issues. Past Medical History: Significant for hypertension, end-stage renal disease, diastolic CHF, anemia, chronic disease, thrombocytopenia, pulmonary edema, atrial fibrillation, currently resolved. Past Surgical History: Dialysis access to the right chest wall and left foot surgery. Psychosocial History: Single, 9 children. Does not work. He recently got out of assisted in May 2016. Home Medications: Include hydralazine, Toprol, nifedipine, terazosin, minoxidil, sevelamer. Review of Systems: Unable to obtain. Physical Examination: This is an intraoperative consult, and as such it was a focused examination of the right buttock and scrotal area. He has a right scrotal abscess and a right buttock abscess. They do not appear to com municate as there is significant distance between them. The gluteal abscess is beyond the ischium on the right, on the gluteal wall with an area of necrosis over the top, approximately 2-3 cm fluctuant area. There does not appear to be a tract that I can discern on the outside at this time or any com munication in any other direction. This seems to be an isolated abscess of this region, which is par tially drained through a skin wound. Laboratory Data: Reveals a white blood count of 7.5, hemoglobin 10.7, hematocrit 31.6, platelet coun t is 184. His sodium is 141, potassium 3.4, chloride 104, carbon dioxide 28, BUN 48, creatinine 11.9 , it was 15.8 on admission. His glucose is 145. He had imaging including a chest x-ray performed on 02/04/2018, which was officially read as cardiomegaly, mild vascular engorgement, improved from [facility] 11 study, hazy lung base opacification, mild failure of volume overload is suspected. He additional ly had a scrotal ultrasound on 02/04/2018 officially read as hyperemic testicular and epididymal tiss ue consistent with epididymo-orchitis pattern. No torsion or focal testicular mass, diffuse growth, wall thickening, and edema with hyperemia of the extratesticular tissue as well. A discrete abscess draining fluid collection is not seen at this time. Assessment And Plan: This is a 42-year-old male who presents with signs and symptoms of a possible s crotal abscess and gluteal buttock abscess on the right. 1.The patient is currently in the operating room as this is an intraoperative consult. He has recei chadd IV antibiotics and IV fluid hydration. He is receiving medical management with respect to dialys is. 2.I will perform an incision and drainage of his buttock abscess. Dr. Dye has explained the risks , benefits, alternatives prior to surgical intervention that he would likely need incision and draina ge of this buttock abscess prior to my arrival and the patient agreed to proceed per his signature of the form. However, I did not have the opportunity to speak with the patient directly prior to surgi diallo intervention, and as this is an intraoperative consult, we will perform the incision and drainage of the abscess. Thank you for this interesting consult. SUMIT/ANTHONY Voice ID: [id number] Report ID: [id number]
[2018-02-05] MEDS ORDERED: HOME MED 1 EA UNK (Nifedipine [Nifedipine Er] 90 MG) PO SCH (21:00)
[2018-02-05] MEDS ORDERED: METOPROLOL XL 50 MG TAB PO SCH (21:00)
--- NOTE | 2018-02-05 21:27 | P.CNS ---
Date of Consult: 02/05/18 Reason for Consult: ESRD Requesting Physician: Cathy Apple Chief Complaint: Scrotal cellulitis History of Present Illness: 42 yo BM CKD presented to the ER with several days of moderate, progressive malaise with associated fever and chills in the setting of scrotal cellulitis. Patient is a 42-year-old gentleman who comes into the hospital with fever shakes and chills. Patient apparently has missed dialysis over the last week although he did go on his last dialysis session on Saturday. He apparently had been out of town on vacation so he missed a few of his dialysis sessions over the last couple weeks. He has become more swollen and edematous in his lower extremity. He also developed some scrotal edema. He started developing fever shakes and chills. It appears he has some cellulitic changes of the scrotum. He will be admitted to the hospital with IV antibiotic therapy and will get urology consultation. Will also do blood cultures. Will look for other sources of infection as he does have some mild erythema but no significant tenderness is noted. Patient has been not compliant with his medical care for quite a while. He jeopardizes his health whenever he becomes not compliant and we have spoken to him regarding this. Hopefully he starts becoming more compliant with his care in the future. Allergies No Known Allergies Allergy (Verified 11/04/17 08:13) Home medications list reviewed: Yes Home Medications: Hydralazine HCl [Apresoline] 100 mg PO TID 11/04/17 Metoprolol Succinate [Toprol Xl*] 50 mg PO BID 11/04/17 Nifedipine [Nifedipine ER] 90 mg PO BID 11/04/17 Terazosin HCl 10 mg PO BID 11/04/17 Minoxidil [Loniten*] 2.5 mg PO DAILY 02/04/18 Sevelamer HCl [Renagel] 800 mg PO TID 02/04/18 - Past Medical/Surgical History Diabetic: No -: Hypertension -: End-stage renal disease -: Diastolic CHF -: Anemia of chronic disease -: Thrombocytopenia -: pulmonary edema -: hx-afib- resolved -: Left foot sx -: dialysis access-right chest wall Psychosocial/ Personal History: The patient is single. He has 9 children. He does not work. He recently got out of detention in May of 2016. - Family History Mother Medical History: Heart disease, Hypertension, Kidney disease - Social History Smoking Status: Unknown if ever smoked Alcohol use: No CD- Drugs: No Caffeine use: No Place of Residence: Home Review of Systems 10-point ROS is otherwise unremarkable General: Malaise Cardiovascular: Edema Neurological: Confusion Physical Examination Temp Pulse Resp BP Pulse Ox 98.3 F 94 H 20 164/103 H 95 02/05/18 16:40 02/05/18 17:22 02/05/18 16:40 02/05/18 17:22 02/05/18 16:40 General: In no apparent distress, Cooperative HEENT: Mucous membr. moist/pink Neck: Supple Respiratory: Normal air movement Cardiovascular: Regular rate/rhythm, No rubs, Edema Gastrointestinal: Soft and benign, Non-distended, No guarding Musculoskeletal: No clubbing, No contractures Integumentary: No rashes, No cyanosis Neurological: Normal speech Hgb 10.7 Blood work reviewed in the chart. Imagings Data: EXAM DESCRIPTION: RAD - Chest Single View - 02/04/2018 2:17 am CLINICAL HISTORY: SOB<Reason For Exam>SOB COMPARISON: Chest Single View dated 11/18/2017; Chest Single View dated 2017; Chest Single View dated 10/22/2017; Chest Single View dated 10/21/2017< Comparisons> TECHNIQUE: AP portable chest image was obtained 0211 hours . FINDINGS: No focal mass or consolidation. There is some hazy opacification over the lower lung montiel. Dialysis catheter is in place. Cardiomegaly is present without significant vascular engorgement. Heart size and vasculature are slightly less than seen on November 18. No measurable pleural effusion and no pneumothorax. No gross bony abnormality seen. No acute aortic findings suspected. IMPRESSION: Cardiomegaly and mild vascular engorgement improved from the November 18 study. Hazy a lung base opacification. A mild failure or volume overload is suspected. Conclusions/Impression: A/ ESRD on HD. HTN with CKD. Diastolic CHF, chronic. Anemia in CKD. GRAY/ Secondary HyperPTH. Buttock/ Scrotal Abscess. P/ Continue current POC and Medications. Acute HD on Saturday and . Restart home medications as indicated. Give Epo. Follow up with surgery. No NSAIDs. AM labs. Daily weight. Thank you kindly for the consultation. Case discussed with Dr. Apple.
[2018-02-05] MEDS: TERAZOSIN HCL 5 MG CAP PO SCH (21:28)
--- NOTE | 2018-02-06 01:41 | OP ---
Date of Procedure: 02/05/2018 Surgeon: Akshat Warner MD, Preoperative Diagnosis: Right buttock abscess. Postoperative Diagnosis: Right buttock abscess. Procedure Performed: Incision and drainage of right buttock abscess. Anesthesia: General endotracheal plus local with 0.25% Marcaine. Estimated Blood Loss: Less than 10 cc. Specimen: Culture from buttock abscess obtained for both aerobic and anaerobic. Findings: A small approximately 3 cm loculated abscess of the right buttock. No communication to th e scrotal tissue. Complications: None. Disposition: Transferred to recovery room in good condition. Procedure In Detail: After informed consent was obtained, the patient was brought to the operating r oom, prepped and draped in the usual sterile fashion. After adequate anesthesia was achieved, a line ar incision was made over an area of necrosis on the right buttock area approximately 2 cm in size. The necrotic tissue was excised completely. The abscess was encountered immediately. I digitized th e abscess to break up any loculations as there was no communication beyond this. After completely di gitizing the area and ensuring the abscess was completely drained, the area was copiously irrigated m ultiple times. Hemostasis was achieved with electrocautery, and the wound was then packed with half- inch iodoform packing after placing Santyl into the area. A sterile dressing was placed over the top . The patient tolerated the procedure well without evidence of complication. I will transfer to Dr. Dye's care at this point, who will proceed with the incision and drainage of the scrotal abscess. All counts were correct at my portion of the procedure. Please see Dr. Dye's note for complete det ails. TK/MODL Voice ID: [id number] Report ID: [id number]
--- NOTE | 2018-02-06 01:41 | OP ---
Surgeon: Tong Dye MD Preoperative Diagnosis: Right hemiscrotal abscess. Postoperative Diagnoses: 1. Right hemiscrotal abscess. 2. Right buttock abscess. Procedure Performed: Incision and drainage of right hemiscrotal abscess , culture sent. Anesthesia: General. Indication: A 42-year-old male with history of hypertension, kidney disease, end-stage renal disease, on dialysis, noncompliant, who came in for his dialysis through the ER, but was found to have a right hemiscrotal abscess that started to drain today, so it was deemed necessary to drain the pus. In preop, it showed me a right buttock abscess for which we consulted Dr. Warner for and got informed consent to do both procedures. Description Of Procedure: He was properly identified, taken to the operative suite, placed in a supine position. Area was shaved, prepped and draped in usual sterile fashion. Dr. Warner went ahead and did his first I and D of the right buttock abscess, packed with iodoform gauze, Santyl, and gauze on top. I did similar on the right hemiscrotal, a small superficial abscess that I drained , cultured, packed with Santyl and iodoform gauze and dry 4x4 with Tegaderm on top. Dressing will be changed in the morning. The patient tolerated the procedure well, was awoken, and went to recovery room in stable condition. No complications. Both abscesses were not communicating. RICO/ANTHONY Voice ID: [id number] Report ID: [id number] KIARA
[2018-02-06] MEDS: MORPHINE 2 MG/ML SYR IV PRN ×2 (04:57→13:22)
[2018-02-06] MEDS: SEVELAMER CARBONATE 800 MG TABLET PO SCH ×3 (08:00→18:22)
[2018-02-06] MEDS ORDERED: Levofloxacin 250mg IV 250 MG/50 ML BAG IV SCH (08:00)
[2018-02-06] MEDS: NIFEDIPINE XL 90 MG TABLET PO SCH ×2 (09:00→22:21)
[2018-02-06] MEDS: HYDRALAZINE HCL 25 MG TABLET PO SCH ×3 (09:00→22:20)
[2018-02-06] MEDS: TERAZOSIN HCL 5 MG CAP PO SCH ×2 (09:00→22:19)
[2018-02-06] MEDS: VITAMIN D 5,000 UNIT CAP PO SCH (09:00)
[2018-02-06] MEDS: CALCITROL 0.25 MCG CAP PO SCH (09:00)
[2018-02-06] MEDS ORDERED: MINOXIDIL 2.5 MG TAB PO SCH (09:00)
[2018-02-06] MEDS: METOPROLOL XL 50 MG TAB PO SCH ×2 (09:00→22:21)
[2018-02-06 11:24] LABS: Absolute Lymphocytes (CBC) 0.7 K/uL (0.7-4.9); Absolute Monocytes 0.8 K/uL (0.1-1.3); Absolute Neutrophil 3.4 K/uL (1.8-8.0); Basophils % 0.6 % (0-1.3); Eosinophils % 3.8 % (0-4.4); Hematocrit 32.3 % (39.6-49.0); Lymphocytes % 13.2 % (15.3-44.8); MCH 27.4 pg (27.0-35.0); MCV 82.8 fL (80-100); MPV 7.6 fL (7.6-11.3); Monocytes % 15.8 % (3.3-12.3); RBC Red Blood Cell Count 3.89 M/uL (4.33-5.43)
[2018-02-06 11:44] LABS: Albumin 3.3 g/dL (3.4-5.0); Bilirubin Total 0.5 mg/dL (0.2-1.0); Potassium 4.2 mmol/L (3.5-5.1); Protein, Total 7.8 g/dL (6.4-8.2)
--- NOTE | 2018-02-06 13:30 | P.PN ---
Subjective Date of Service: 02/06/18 Chief Complaint: Scrotal cellulitis Patient seen and examined at bedside with RN. Chart reviewed. No complaints to offer overnight. States that he has been feeling well overall. Now s/p I&d of the scrotum and right buttock area. Currently in Dialysis Review of Systems 10-point ROS is otherwise unremarkable Physical Examination - Vital Signs Temperature: 98.6 F Blood Pressure: 160/80 Pulse: 92 Respirations: 18 Pulse Ox (%): 95 - Physical Exam General: Alert, In no apparent distress HEENT: Atraumatic, PERRLA, EOMI Neck: Supple, JVD not distended Respiratory: Clear to auscultation bilaterally, Normal air movement Cardiovascular: Regular rate/rhythm, Normal S1 S2 Gastrointestinal: Normal bowel sounds, No tenderness Musculoskeletal: No tenderness Integumentary: No rashes, Tenderness/swelling, Erythema Neurological: Normal speech, Normal tone, Normal affect Lymphatics: No axilla or inguinal lymphadenopathy External genitalia: Edema, Tenderness, Other (Right scrotal packing and right buttock packing in place ) - Studies Medications List Reviewed: Yes Assessment And Plan - Current Problems (Diagnosis) (1) Scrotal abscess Onset Date: 02/05/18 Current Visit: Yes Status: Acute Plan: Scrotal abscess on physical examination. -urology consulted. Appreciate Reccs -S.p I&D of the scrotal Abscess POD # 1 -on IV Levaquin and vanc at this time. (2) Abscess of right buttock Current Visit: Yes Status: Acute Plan: -S/P I&D POD # 1 with General Surgery -Culture pending -Packing in place - for Wound care (3) Chronic renal disease Onset Date: 09/13/17 Current Visit: No Status: Acute Plan: Acute on chronic kidney disease. Patient missed dialysis for 1 week as he was out on vacation. -Pt to get Dialysis here in the hospital Qualifiers: Chronic kidney disease stage: stage 5, not on chronic dialysis Qualified Code(s): N18.5 - Chronic kidney disease, stage 5 (4) CHF (congestive heart failure) Onset Date: 09/13/17 Current Visit: No Status: Chronic Qualifiers: Heart failure type: diastolic Heart failure chronicity: chronic Qualified Code(s): I50.32 - Chronic diastolic (congestive) heart failure (5) End stage renal disease Onset Date: 10/01/17 Current Visit: No Status: Chronic (6) HTN (hypertension) Onset Date: 10/21/17 Current Visit: No Status: Chronic Qualifiers: (7) Pulmonary hypertension Onset Date: 09/13/17 Current Visit: No Status: Chronic - Plan Currently awaiting clinical improvement. The patient is status post incision and debridement of the right scrotal abscess and the right buttock abscess. The will follow up with wound culture at this time. Currently patient is receiving dialysis. Will follow up with nephrology for further dialysis order. Discharge Plan: Home Plan to discharge in: 24 Hours - Code Status/Comfort Care Code Status Assessed: Yes Critical Care: No
--- NOTE | 2018-02-06 19:09 | PN ---
Subjective: The patient is stable. Had I and D of his buttock abscess and right scrotal abscess. Stable. Doing well. Objective: Vital Signs: 98.6, 92, 18, 160/80, 95% saturation. I's and O's 1216 taken, 427 output. Laboratory Data: White count down to 5.7, was as high as 10.7, H and H stable at 10 and 32. Platelet count 196. Microbiology, all pending. Assessment: The patient has been attempting to sign out AMA for some reason. He felt like in the past he got barely the minimum care, and if only he had insurance he felt like more would have been done for him. He is disappointed in that I guess. Anyway, it does not matter if he has insurance or not, especially if there is an emergency. The wound dressing was taken down scrotally, looks good, nice red, beefy red and fresh, was packed with wet-to- dry. The buttock wound will be checked by Dr. Warner. From my point of view, he can go home with dressing changes wet-to-dry once or twice a day. Follow up with Dr. Warner for both wounds [facility] and should be good from my point of view. He will go home on some pain medication, antibiotics per Dr. Warner. RICO/ANTHONY Voice ID: [id number] Report ID: [id number] MTDD
--- NOTE | 2018-02-06 21:55 | P.PN ---
Date of Service: 02/06/18 Vital Signs Temp Pulse Resp BP Pulse Ox 99.7 F 77 18 166/98 H 98 02/06/18 20:00 02/06/18 20:00 02/06/18 20:00 02/06/18 20:00 02/06/18 20:00 Medications Acetaminophen (Tylenol -Extra Strength) 500 mg PO Q6H PRN PRN Reason: [id number]-xo-[id number] Stop: 03/06/18 04:25 Calcitriol (Rocaltrol) 0.5 mcg PO DAILY MADHAV Stop: 03/07/18 09:01 Last Admin: 02/06/18 09:00 Dose: Not Given Cholecalciferol (Vitamin D 5,000 Iu Cap) 5,000 unit PO DAILY MADHAV Stop: 03/07/18 09:01 Last Admin: 02/06/18 09:00 Dose: Not Given Epoetin Anselmo (Procrit) 10,000 unit IV EVERY HD MADHAV Stop: 03/06/18 13:31 Last Admin: 02/06/18 08:39 Dose: 10,000 unit Heparin Sodium (Porcine) (Heparin 1,000 Units/Ml) 6,000 unit IV EVERY HD PRN PRN Reason: FLUSH AFTER EACH USE Stop: 03/06/18 13:30 Last Admin: 02/06/18 08:39 Dose: 6,000 unit Hydralazine HCl (Apresoline) 100 mg PO TID MADHAV Stop: 03/07/18 14:01 Last Admin: 02/06/18 14:59 Dose: 100 mg Vancomycin HCl 1 gm/ Sodium (Chloride) 250 mls @ 125 mls/hr IVPB AFTER EACH DIALYSIS MADHAV; Protocol Stop: 03/06/18 05:01 Last Admin: 02/06/18 10:49 Dose: 250 mls Levofloxacin/Dextrose (Levaquin 250mg/50 Ml Ivpb) 250 mg in 50 mls @ 50 mls/hr IV Q48H MADHAV Stop: 03/08/18 08:01 Last Admin: 02/06/18 08:00 Dose: Not Given Albumin Human (Albumin 25%) 50 mls @ 100 mls/hr IV EVERY HD MADHAV Stop: 03/06/18 14:01 Mannitol (Mannitol 12.5 Gm/50 Ml Vial) 12.5 gm IV EVERY HD PRN PRN Reason: BP support at hemodialysis Stop: 03/06/18 13:30 Metoprolol Succinate (Toprol Xl) 50 mg PO BID [facility] Stop: 03/07/18 14:01 Last Admin: 02/06/18 09:00 Dose: Not Given Minoxidil (Loniten) 2.5 mg PO BID [facility] Stop: 03/09/18 09:01 Morphine Sulfate (Morphine Sulfate) 2 mg IV Q4H PRN PRN Reason: PAIN MODERATE TO SEVERE Stop: 03/06/18 04:25 Last Admin: 02/06/18 13:22 Dose: 2 mg Nifedipine (Procardia Xl) 90 mg PO BID [facility] Stop: 03/07/18 14:01 Last Admin: 02/06/18 09:00 Dose: Not Given Ondansetron HCl (Zofran) 4 mg IV Q4H PRN PRN Reason: NAUSEA / VOMITING Stop: 03/06/18 04:25 Sevelamer Carbonate (Renvela) 800 mg PO TIDWM [facility] Stop: 03/07/18 17:01 Last Admin: 02/06/18 18:22 Dose: 800 mg Sodium Chloride (Normal Saline Flush) 10 ml IV BID [facility] Stop: 03/06/18 09:01 Last Admin: 02/06/18 09:00 Dose: Not Given Terazosin HCl (Hytrin) 10 mg PO BID [facility] Stop: 03/07/18 21:01 Last Admin: 02/06/18 09:00 Dose: Not Given Microbiology Results 02/04/18 03:55 Blood - Blood Aerobic Blood Culture - Preliminary No growth in 24 hours. 02/04/18 03:55 Blood - Blood Anaerobic Blood Culture - Preliminary No growth in 24 hours. 02/04/18 03:40 Blood - Blood Aerobic Blood Culture - Preliminary No growth in 24 hours. 02/04/18 03:40 Blood - Blood Anaerobic Blood Culture - Preliminary No growth in 24 hours. Assessment/ Plan: Nephrology. Feeling much better today. CPS stable without CP or SOB. No acute events overnight. Vitals, medications, blood work and imaging reviewed in the chart. General: In no apparent distress, Cooperative HEENT: Mucous membr. moist/pink Neck: Supple Respiratory: Normal air movement Cardiovascular: Regular rate/rhythm, No rubs, Edema Gastrointestinal: Soft and benign, Non-distended, No guarding Musculoskeletal: No clubbing, No contractures Integumentary: No rashes, No cyanosis Neurological: Normal speech Hgb 10.7 Blood work reviewed in the chart. Imagings Data: EXAM DESCRIPTION: RAD - Chest Single View - 02/04/2018 2:17 am CLINICAL HISTORY: SOB<Reason For Exam>SOB COMPARISON: Chest Single View dated 11/18/2017; Chest Single View dated 2017; Chest Single View dated 10/22/2017; Chest Single View dated 10/21/2017< Comparisons> TECHNIQUE: AP portable chest image was obtained 0211 hours . FINDINGS: No focal mass or consolidation. There is some hazy opacification over the lower lung montiel. Dialysis catheter is in place. Cardiomegaly is present without significant vascular engorgement. Heart size and vasculature are slightly less than seen on November 18. No measurable pleural effusion and no pneumothorax. No gross bony abnormality seen. No acute aortic findings suspected. IMPRESSION: Cardiomegaly and mild vascular engorgement improved from the November 18 study. Hazy a lung base opacification. A mild failure or volume overload is suspected. Conclusions/Impression: A/ ESRD on HD. HTN with CKD. Diastolic CHF, chronic. Anemia in CKD. GRAY/ Secondary HyperPTH. Buttock/ Scrotal Abscess. P/ Continue current POC and Medications. Seen and examined on HD; doing well. Agree with abx. Medications reviewed with the patient. Follow up with surgery. No NSAIDs. AM labs. Daily weight.
[2018-02-07 05:39] VITALS: O2SAT 97
[2018-02-07 08:21] VITALS: BP 167/99; TEMP 97.5
[2018-02-07] MEDS: CALCITROL 0.25 MCG CAP PO SCH (08:31)
[2018-02-07] MEDS: TERAZOSIN HCL 5 MG CAP PO SCH (08:32)
[2018-02-07] MEDS: SEVELAMER CARBONATE 800 MG TABLET PO SCH (08:32)
[2018-02-07] MEDS: VITAMIN D 5,000 UNIT CAP PO SCH (08:33)
[2018-02-07] MEDS: METOPROLOL XL 50 MG TAB PO SCH (08:33)
[2018-02-07] MEDS: NIFEDIPINE XL 90 MG TABLET PO SCH (08:33)
[2018-02-07] MEDS: HYDRALAZINE HCL 25 MG TABLET PO SCH (08:34)
[2018-02-07] MEDS ORDERED: MINOXIDIL 2.5 MG TAB PO SCH (09:00)
--- NOTE | 2018-02-07 16:35 | P.DS ---
Admission Date: 02/04/18 Discharge Date: 02/07/18 Disposition: ROUTINE DISCHARGE Reason for Admission: Scrotal cellulitis Consultations: General Surgery Urology - Problems (1) Scrotal abscess Onset Date: 02/05/18 Status: Acute (2) Abscess of right buttock Status: Acute (3) Chronic renal disease Onset Date: 09/13/17 Status: Acute Qualifiers: Chronic kidney disease stage: stage 5, not on chronic dialysis Qualified Code(s): N18.5 - Chronic kidney disease, stage 5 (4) CHF (congestive heart failure) Onset Date: 09/13/17 Status: Chronic Qualifiers: Heart failure type: diastolic Heart failure chronicity: chronic Qualified Code(s): I50.32 - Chronic diastolic (congestive) heart failure (5) End stage renal disease Onset Date: 10/01/17 Status: Chronic (6) HTN (hypertension) Onset Date: 10/21/17 Status: Chronic Qualifiers: (7) Pulmonary hypertension Onset Date: 09/13/17 Status: Chronic Brief History of Present Illness: Patient is a 42-year-old gentleman who comes into the hospital with fever shakes and chills. Patient apparently has missed dialysis over the last week although he did go on his last dialysis session on Saturday. He apparently had been out of town on vacation so he missed a few of his dialysis sessions over the last couple weeks. He has become more swollen and edematous in his lower extremity. He also developed some scrotal edema. He started developing fever shakes and chills. It appears he has some cellulitic changes of the scrotum. He will be admitted to the hospital with IV antibiotic therapy and will get urology consultation. Will also do blood cultures. Will look for other sources of infection as he does have some mild erythema but no significant tenderness is noted. Patient has been not compliant with his medical care for quite a while. He jeopardizes his health whenever he becomes not compliant and we have spoken to him regarding this. Hopefully he starts becoming more compliant with his care in the future. Hospital Course: Overall during the hospital stay patient remained stable Patient was initially admitted to the hospital for scrotal cellulites after he missed dialysis for over a week. Patient was found to have acute kidney injury on chronic kidney disease due to noncompliance with dialysis. Patient received dialysis here in the hospital and had marked improvement in symptoms. Patient scrotal cellulitis initially had no purulent discharge over 24 hr developed purulent discharge urology was consulted who took the patient to the OR for incision and drainage. Patient was also found to have a but talked abscess which general surgery was consulted from the OR and had successful incision and drainage of the buttock area as well. Cultures were still pending. Patient however was insisting on going home this was discharged home under stable condition. Wound care was set up for the patient for wound packing. Patient was to continue with dialysis from tomorrow. Patient was given oral antibiotics to go home with for total of 10 days. No other complaints to offer. Patient was then discharged home under stable condition under the understanding of continuing the antibiotics and wound care at home. Vital Signs/Physical Exam: Temp Pulse Resp BP Pulse Ox 97.5 F 75 16 167/99 H 98 02/07/18 08:00 02/07/18 08:33 02/07/18 08:00 02/07/18 08:33 02/07/18 08:00 General: Alert, In no apparent distress HEENT: Atraumatic, PERRLA, EOMI Neck: Supple, JVD not distended Respiratory: Clear to auscultation bilaterally, Normal air movement Cardiovascular: Regular rate/rhythm, Normal S1 S2 Gastrointestinal: Normal bowel sounds, No tenderness Musculoskeletal: No tenderness Integumentary: No rashes Neurological: Normal speech, Normal tone, Normal affect Lymphatics: No axilla or inguinal lymphadenopathy External genitalia: Edema, Lesions Laboratory Data at Discharge: WBC 5.1 K/uL (4.3-10.9) D 02/06/18 11:07 Hgb 10.7 g/dL (13.6-17.9) L 02/06/18 11:07 Hct 32.3 % (39.6-49.0) L 02/06/18 11:07 Plt Count 196 K/uL (152-406) 02/06/18 11:07 PT 13.8 SECONDS (9.5-12.5) H 02/05/18 05:30 INR 1.17 02/05/18 05:30 APTT 30.6 SECONDS (24.3-36.9) 02/05/18 05:30 Sodium 141 mmol/L (136-145) 02/06/18 11:07 Potassium 4.2 mmol/L (3.5-5.1) 02/06/18 11:07 BUN 31 mg/dL (7-18) H 02/06/18 11:07 Creatinine 8.20 mg/dL (0.55-1.3) H* D 02/06/18 11:07 Glucose 115 mg/dL (74-106) H 02/06/18 11:07 Total Bilirubin 0.5 mg/dL (0.2-1.0) 02/06/18 11:07 AST 13 U/L (15-37) L 02/06/18 11:07 ALT 22 U/L (12-78) 02/06/18 11:07 Alkaline Phosphatase 88 U/L (45-117) 02/06/18 11:07 Home Medications: RX: Hydralazine HCl [Apresoline] 100 mg PO TID 11/04/17 RX: Metoprolol Succinate [Toprol Xl*] 50 mg PO BID 11/04/17 RX: Nifedipine [Nifedipine ER] 90 mg PO BID 11/04/17 RX: Terazosin HCl 10 mg PO BID 11/04/17 RX: Minoxidil [Loniten*] 2.5 mg PO DAILY 02/04/18 Sevelamer HCl [Renagel] 800 mg PO TID 02/04/18 Followup: Akshat Warner MD [ACTIVE - CAN ADMIT] -
--- NOTE | 2018-02-07 21:34 | P.PN ---
Date of Service: 02/07/18 Vital Signs Temp Pulse Resp BP Pulse Ox 97.5 F 75 16 167/99 H 98 02/07/18 08:00 02/07/18 08:33 02/07/18 08:00 02/07/18 08:33 02/07/18 08:00 Microbiology Results 02/04/18 03:55 Blood - Blood Aerobic Blood Culture - Preliminary No growth in 24 hours. 02/04/18 03:55 Blood - Blood Anaerobic Blood Culture - Preliminary No growth in 24 hours. 02/04/18 03:40 Blood - Blood Aerobic Blood Culture - Preliminary No growth in 24 hours. 02/04/18 03:40 Blood - Blood Anaerobic Blood Culture - Preliminary No growth in 24 hours. Assessment/ Plan: Nephrology. Feeling much better today. CPS stable without CP or SOB. No acute events overnight. Vitals, medications, blood work and imaging reviewed in the chart. General: In no apparent distress, Cooperative HEENT: Mucous membr. moist/pink Neck: Supple Respiratory: Normal air movement Cardiovascular: Regular rate/rhythm, No rubs, Edema Gastrointestinal: Soft and benign, Non-distended, No guarding Musculoskeletal: No clubbing, No contractures Integumentary: No rashes, No cyanosis Neurological: Normal speech Hgb 10.7 Blood work reviewed in the chart. Imagings Data: EXAM DESCRIPTION: RAD - Chest Single View - 02/04/2018 2:17 am CLINICAL HISTORY: SOB<Reason For Exam>SOB COMPARISON: Chest Single View dated 11/18/2017; Chest Single View dated 2017; Chest Single View dated 10/22/2017; Chest Single View dated 10/21/2017< Comparisons> TECHNIQUE: AP portable chest image was obtained 0211 hours . FINDINGS: No focal mass or consolidation. There is some hazy opacification over the lower lung montiel. Dialysis catheter is in place. Cardiomegaly is present without significant vascular engorgement. Heart size and vasculature are slightly less than seen on November 18. No measurable pleural effusion and no pneumothorax. No gross bony abnormality seen. No acute aortic findings suspected. IMPRESSION: Cardiomegaly and mild vascular engorgement improved from the November 18 study. Hazy a lung base opacification. A mild failure or volume overload is suspected. Conclusions/Impression: A/ ESRD on HD. HTN with CKD. Diastolic CHF, chronic. Anemia in CKD. GRAY/ Secondary HyperPTH. Buttock/ Scrotal Abscess. P/ Continue current POC and Medications. Next HD Saturday. Agree with abx. Follow up with surgery. No NSAIDs. AM labs. Daily weight.
[2018-02-08 19:08] LABS: HBsAG Nonreactive (Nonreactive)
== END 2018-02-07 10:40 | disposition home health service (06) ==
LOC: ER 01:50 → INTOOBSV 04:30 → ERHOLD 04:30 → 2ND 10:25
PROVIDERS: ADMIT Hospitalist; ATTEND Family Medicine
PROC: 0J990ZZ Drainage of Buttock Subcutaneous Tissue and Fascia, Open Approach (ICD-10-PCS; principal; 2018-02-05 13:00)
DX: N50.89 Other specified disorders of the male genital organs (principal); N18.6 End stage renal disease; L02.31 Cutaneous abscess of buttock; I13.2 Hypertensive heart and chronic kidney disease with heart failure and with stage 5 chronic kidney disease, or end stage renal disease; I50.32 Chronic diastolic (congestive) heart failure; N25.81 Secondary hyperparathyroidism of renal origin; E87.70 Fluid overload, unspecified; D63.1 Anemia in chronic kidney disease; Z99.2 Dependence on renal dialysis; Z28.21 Immunization not carried out because of patient refusal
CPT/HCPCS: 36415; 71045; 76870; 80053; 80202; 85025; 85610; 85730; 86317; 86704; 86706; 87040; 87070; 87075; 87077; 87186; 87205; 87340; 88304; 90935; 93005; 96365; 96366; 96368; 99285; G0378; J0360; J2001; J2250; J2270; J2405; J2543; J3370; J3590; Q4081

== ENCOUNTER 2019-02-02 10:25 | Emergency (ER) | payer OTHER ==
--- OUTSIDE RECORDS SUMMARY | 2019-02-02 10:32 | XMS REPORT ---
:1975 Author Organization [facility] Address [address] [place] [address] Care Team Providers Name Role Phone Unavailable Unavailable Unavailable Problems This patient has no known problems. Allergies, Adverse Reactions, Alerts This patient has no known allergies or adverse reactions. Medications This patient has no known medications.
--- OUTSIDE RECORDS SUMMARY | 2019-02-02 10:32 | XMS REPORT | Clinical Summary ---
:1975 Author Organization [facility] Address [address] [place] [address] Care Team Providers Name Role Phone Pcp, No Primary Care Provider Unavailable Allergies No Known Allergies Medications Medication Sig Dispensed Refills Start Date End Date Status calcitriol (ROCALTROL) Take 0.5 mcg by 0 Active 0.5 MCG capsule mouth daily. cholecalciferol, vitamin Take 5,000 Units 0 Active D3, 5,000 unit Tab by mouth daily. hydrALAZINE (APRESOLINE) Take 100 mg by 0 Active 100 MG tablet mouth 3 (three) times daily. levoFLOXacin (LEVAQUIN) Take 500 mg by 0 Active 500 MG tablet mouth every other day. NIFEdipine (ADALAT CC) Take 90 mg by 0 Active 90 MG 24 hr tablet mouth 2 (two) times daily. ramipril (ALTACE) 10 MG Take 10 mg by 0 Active capsule mouth daily. sevelamer (RENVELA) 800 Take 800 mg by 0 Active mg tablet mouth 3 (three) times daily with meals. Active Problems Not on file Encounters Date Type Specialty Care Team Description 01/13/2019 Documentation Transplant Toshia Car RN 05/29/2018 Abstract Transplant Kimber Martinez RN 02/26/2018 Orders Only Transplant Lindsey Almonte ESRD (end stage renal disease ) on dialysis (HCC); Hepatology MD Luc Pre-transplant evaluation for chronic kidney disease; Hypertensive renal disease 02/26/2018 Office Visit Transplant Lindsey Almonte ESRD (end stage renal disease) (HCC) (Primary Dx); MD Luc Pre-transplant evaluation for chronic kidney disease; [place], Hypertension, unspecified type; Toshia Still RN Diastolic congestive heart failure, unspecified HF chronicity (HCC); Anemia of renal disease 02/07/2018 Hospital Encounter Radiology Lindsey Almonte ESRD (end stage renal disease) on dialysis ([facility]); MD Luc Pre-transplant evaluation for chronic kidney disease; Hypertensive renal disease after 02/01/2018 Social History Tobacco Use Types Packs/Day Years Used Date Never Assessed Sex Assigned at Date Recorded Not on file Job Start Date Occupation Industry Not on file Not on file Not on file Travel History Travel Start Travel End No recent travel history available. Last Filed Vital Signs Not on file Plan of Treatment Not on file Procedures Procedure Name Priority Date/Time Associated Comments Diagnosis TRANSFUSION SERVICE 02/27/2018 5:55 REPORT - SCAN PM CDT TYPE AND SCREEN, Routine 02/26/2018 10:56 ESRD (end stage Results for this AUTOMATED AM CDT renal disease) on procedure are in dialysis ([facility]) the results Pre-transplant section. evaluation for chronic kidney disease Hypertensive renal disease after 02/01/2018 Results TRANSFUSION SERVICE REPORT - SCAN (02/27/2018 5:55 PM CDT) Narrative Performed At Type and Screen, Automated (02/26/2018 10:56 AM CDT) ABO/RH AUTOMATED (BEAKER) O NEGATIVE [facility] Ab Scrn NEGATIVE [facility] Specimen Blood Performing Organization Address City/State/Zipcode Phone Number [facility] [address] [place] [address] after 02/01/2018 Insurance Payer Benefit Plan / Group Subscriber ID Type Phone Address OPTUM NON UNITED - [employer]UM NON-UNITED [place]AR xxxxxxxxx MEDICAID [place] MEDICAID MEDICAID OF [place] xxxxxxxxx Medicaid (Home) [address] [place] [address]
[2019-02-02 11:33] LABS: Absolute Lymphocytes (CBC) 0.6 K/uL (0.7-4.9); Basophils % 0.9 % (0-1.3); Hematocrit 25.8 % (39.6-49.0); Lymphocytes % 16.7 % (15.3-44.8); MPV 8.2 fL (7.6-11.3); RBC Red Blood Cell Count 2.87 M/uL (4.33-5.43)
[2019-02-02 11:56] LABS: Potassium 6.5 mmol/L (3.5-5.1)
[2019-02-02] MEDS ORDERED: INSULIN -REGULAR HUMAN 50 UNIT/0.5 ML ML ONE (12:20)
[2019-02-02] MEDS ORDERED: D50W 25 GM/50 ML SYRINGE IV ONE ×2 (12:21→14:05)
[2019-02-02] MEDS ORDERED: CALCIUM GLUCONATE 1gm/100 ML NS (4.65 mEq/100mL) IV ONE ×2 (12:30)
--- NOTE | 2019-02-02 12:41 | EKG ---
Test Date: 2019-02-02 Test Time: 11:07:40 Sand Filler: FAISAL MEASUREMENT RESULTS: Intervals: Rate: 71 GA: 146 QRSD: 88 QT: 408 QTc: 443 Forbes: P: 67 GA: 146 QRS: -6 T: 100 INTERPRETIVE STATEMENTS: Normal sinus rhythm T wave abnormality, consider lateral ischemia Abnormal ECG Compared to ECG 02/04/2018 02:03:52 Possible ischemia now present Atrial premature complex(es) no longer present T-wave abnormality still present Electronically Signed On 02-02-19 12:40:26 CDT by Naveen Vasquez
[2019-02-02] MEDS ORDERED: SOD POLYSTYREN SUL 15 GM/60 ML UCUP ONE (15:04)
--- NOTE | 2019-02-02 15:26 | ER ---
Nurse's Notes [facility] Name: Jermaine Rivera Age: 43 yrs Sex: Male : 1975 Arrival Date: 02/02/2019 Time: 10:29 Bed 25 Private MD: Diagnosis: Hyperkalemia;Other complication of vascular dialysis catheter Presentation: 02/02 10:42 Presenting complaint: Patient states: SCHEDULED DIALYSIS PT, LAST HD ON SATURDAY, [place] bp PORT REVISIONS, RECENTLY PORT REMOVED AND NOT REPLACED. Transition of care: patient was not received from another setting of care. Onset of symptoms is unknown. Risk Assessment: Do you want to hurt yourself or someone else? Patient reports no desire to harm self or others. Initial Sepsis Screen: Does the patient meet any 2 criteria? No. Patient's initial sepsis screen is negative. Does the patient have a suspected source of infection? No. Patient's initial sepsis screen is negative. Care prior to arrival: None. 10:42 Method Of Arrival: Ambulatory bp 10:42 Acuity: FERNANDA 3 bp Triage Assessment: 10:45 General: Appears in no apparent distress. comfortable, Behavior is calm, cooperative, bp appropriate for age. Pain: Denies pain. EENT: No deficits noted. Neuro: No deficits noted. Cardiovascular: No deficits noted. Respiratory: No deficits noted. GI: No signs and/or symptoms were reported involving the gastrointestinal system. : No signs and/or symptoms were reported regarding the genitourinary system. Derm: No deficits noted. Musculoskeletal: No deficits noted. Historical: - Allergies: 10:45 No Known Allergies; bp - Home Meds: 10:45 hydralazine 100 mg Oral tab 1 tab 3 times per day [Active]; metoprolol tartrate 50 mg bp Oral tab 2 tabs 2 times per day [Active]; nifedipine 90 mg Oral cpER 1 tab twice a day [Active]; Renagel Oral [Active]; Crystal-Angie Oral [Active]; terazosin 5 mg Oral cap 2 caps twice a day [Active]; - PMHx: 10:45 Dialysis; Hypertension; Renal Disease; bp - Immunization history:: Adult Immunizations up to date. - Social history:: Smoking status: Patient/guardian denies using tobacco. - Ebola Screening: : No symptoms or risks identified at this time. Screenin:45 Abuse screen: Denies threats or abuse. Denies injuries from another. Nutritional bp screening: No deficits noted. Tuberculosis screening: No symptoms or risk factors identified. Fall Risk None identified. Assessment: 10:45 General: SEE TRIAGE NOTE. bp 12:15 Reassessment: MEDICATION PENDING FROM PHARMACY, TRANSFER INITIATED FOR VASCULAR SURGERY.bp 13:37 Reassessment: AWAITING NEPHROLOGY RESPONSE FOR DISPO. bp 14:49 Reassessment: PT EATING. DISPOSITION PENDING. bp 15:42 Reassessment: REPORT TO ZACKERY SAEED AT [facility], TRANSPORT PENDING. bp 16:21 Reassessment: [facility] AT B/S FOR TRANSPORT. bp Vital Signs: 10:45 BP 123 / 74; Pulse 73; Resp 16; Temp 98; Pulse Ox 99% ; Weight 87.09 kg; Height 6 ft. 1 bp in. (185.42 cm); 12:16 BP 123 / 82; Pulse 65; Resp 16; Pulse Ox 100% ; bp 13:36 BP 135 / 75; Pulse 69; Resp 16; Pulse Ox 97% ; bp 14:48 BP 121 / 68; Pulse 83; Resp 18; Pulse Ox 98% ; bp 15:42 BP 136 / 76; Pulse 78; Resp 14; Temp 98; Pulse Ox 98% ; bp 10:45 Body Mass Index 25.33 (87.09 kg, 185.42 cm) bp ED Course: 10:29 Patient arrived in ED. mr 10:36 Gabriel Booth MD is Attending Physician. gs 10:36 Jeffrey Vickers, CHRISTOPHE is Primary Nurse. bp 10:43 Triage completed. bp 10:45 Arm band placed on. bp 10:45 Patient has correct armband on for positive identification. Placed in gown. Bed in low bp position. Call light in reach. Side rails up X2. 11:14 Inserted saline lock: 20 gauge in left forearm, using aseptic technique. Blood bp collected. 11:15 EKG done, by program technician. reviewed by Gabriel Booth MD. sm3 14:01 Diet: Patient given water. jp3 15:43 No provider procedures requiring assistance completed. Patient transferred, IV remains bp in place. Administered Medications: 13:00 Drug: Calcium Gluconate 1 grams Route: IVPB; Infused Over: 60 mins; Site: left forearm; bp 14:00 Follow up: IV Status: Completed infusion; IV Intake: 100ml bp 13:00 Drug: Insulin Regular Human 10 units {Co-Signature: paulina (Melissa Roth RN).} Route: bp IVP; Site: left forearm; 13:35 Follow up: Response: No adverse reaction bp 13:00 Drug: D50W 50 ml Route: IVP; Site: left forearm; bp 13:35 Follow up: Response: No adverse reaction bp 15:07 Drug: Kayexalate 30 grams Route: PO; bp 15:44 Follow up: Response: No adverse reaction bp Point of Care Testing: Blood Glucose: 13:46 Blood Glucose: 63 mg/dL; bp Ranges: Intake: 14:00 IV: 100ml; Total: 100ml. bp Outcome: 15:24 ER care complete, transfer ordered by . 15:43 Transferred by [facility] to [facility], Transfer form completed. bp 15:43 Condition: stable 15:43 Instructed on the need for transfer. 16:24 Patient left the ED. bp Signatures: Nazanin Stroud Gregory, MD MD gs Peltier, Brian, RN RN bp Kiana Pace sm3 Radhames Perez jp3 Melissa gallardo
--- NOTE | 2019-02-02 15:26 | EDPHYS ---
Physician Documentation [facility] Name: Jermiane Rivera Age: 43 yrs Sex: Male : 1975 Arrival Date: 02/02/2019 Time: 10:29 Bed 25 Private MD: ED Physician Gabriel Booth HPI: 02/02 15:46 This 43 yrs old Black Male presents to ER via Ambulatory with complaints of Dialysis gs port not working. 15:46 Onset: The symptoms/episode began/occurred last week. Severity of symptoms: At their gs worst the symptoms were severe. The patient has experienced similar episodes in the past, a few times. replaced dialysis catheter wasn't working removed attempted replacement unsuccessful here to get fixed. Historical: - Allergies: 10:45 No Known Allergies; bp - Home Meds: 10:45 hydralazine 100 mg Oral tab 1 tab 3 times per day [Active]; metoprolol tartrate 50 mg bp Oral tab 2 tabs 2 times per day [Active]; nifedipine 90 mg Oral cpER 1 tab twice a day [Active]; Renagel Oral [Active]; Crystal-Angie Oral [Active]; terazosin 5 mg Oral cap 2 caps twice a day [Active]; - PMHx: 10:45 Dialysis; Hypertension; Renal Disease; bp - Immunization history:: Adult Immunizations up to date. - Social history:: Smoking status: Patient/guardian denies using tobacco. - Ebola Screening: : No symptoms or risks identified at this time. ROS: 15:46 All other systems are negative. gs Exam: 15:46 Head/Face: Normocephalic, atraumatic. Eyes: Pupils equal round and reactive to light, gs extra-ocular motions intact. Lids and lashes normal. Conjunctiva and sclera are non-icteric and not injected. Cornea within normal limits. Periorbital areas with no swelling, redness, or edema. ENT: Nares patent. No nasal discharge, no septal abnormalities noted. Tympanic membranes are normal and external auditory canals are clear. Oropharynx with no redness, swelling, or masses, exudates, or evidence of obstruction, uvula midline. Mucous membranes moist. Neck: Trachea midline, no thyromegaly or masses palpated, and no cervical lymphadenopathy. Supple, full range of motion without nuchal rigidity, or vertebral point tenderness. No Meningismus. Chest/axilla: Normal chest wall appearance and motion. Nontender with no deformity. No lesions are appreciated. Cardiovascular: Regular rate and rhythm with a normal S1 and S2. No gallops, murmurs, or rubs. Normal PMI, no JVD. No pulse deficits. Respiratory: Lungs have equal breath sounds bilaterally, clear to auscultation and percussion. No rales, rhonchi or wheezes noted. No increased work of breathing, no retractions or nasal flaring. Abdomen/GI: Soft, non-tender, with normal bowel sounds. No distension or tympany. No guarding or rebound. No evidence of tenderness throughout. Back: No spinal tenderness. No costovertebral tenderness. Full range of motion. Skin: Warm, dry with normal turgor. Normal color with no rashes, no lesions, and no evidence of cellulitis. MS/ Extremity: Pulses equal, no cyanosis. Neurovascular intact. Full, normal range of motion. Neuro: Awake and alert, GCS 15, oriented to person, place, time, and situation. Cranial nerves II-XII grossly intact. Motor strength 5/5 in all extremities. Sensory grossly intact. Cerebellar exam normal. Normal gait. 15:46 Constitutional: The patient appears alert, awake. 15:46 ECG was reviewed by the Attending Physician. Vital Signs: 10:45 BP 123 / 74; Pulse 73; Resp 16; Temp 98; Pulse Ox 99% ; Weight 87.09 kg; Height 6 ft. 1 bp in. (185.42 cm); 12:16 BP 123 / 82; Pulse 65; Resp 16; Pulse Ox 100% ; bp 13:36 BP 135 / 75; Pulse 69; Resp 16; Pulse Ox 97% ; bp 14:48 BP 121 / 68; Pulse 83; Resp 18; Pulse Ox 98% ; bp 15:42 BP 136 / 76; Pulse 78; Resp 14; Temp 98; Pulse Ox 98% ; bp 10:45 Body Mass Index 25.33 (87.09 kg, 185.42 cm) bp MDM: 10:50 Patient medically screened. 15:46 Data reviewed: vital signs, nurses notes. ED course: spoke with yeimy, says pt needs IR to fix sc vein stenosis higher level of care so transfer. they want to dialyze at receiving facility not here.. 02/02 10:51 Order name: CBC with Diff; Complete Time: 11:55 02/02 10:51 Order name: Basic Metabolic Panel; Complete Time: 12:24 02/02 10:51 Order name: Protime (+inr); Complete Time: 11:55 02/02 13:30 Order name: Potassium; Complete Time: 14:12 02/02 10:51 Order name: EKG; Complete Time: 10:53 02/02 10:51 Order name: EKG - Nurse/Tech; Complete Time: 11:14 02/02 13:33 Order name: Accucheck Blood Glucose; Complete Time: 13:46 gs EC:46 Rate is 71 beats/min. KS interval is normal. QRS interval is normal. T waves are gs Normal. Clinical impression: Normal ECG. Interpreted by me. Administered Medications: 13:00 Drug: Calcium Gluconate 1 grams Route: IVPB; Infused Over: 60 mins; Site: left forearm; bp 14:00 Follow up: IV Status: Completed infusion; IV Intake: 100ml bp 13:00 Drug: Insulin Regular Human 10 units {Co-Signature: iw (Melissa Roth RN).} Route: bp IVP; Site: left forearm; 13:35 Follow up: Response: No adverse reaction bp 13:00 Drug: D50W 50 ml Route: IVP; Site: left forearm; bp 13:35 Follow up: Response: No adverse reaction bp 15:07 Drug: Kayexalate 30 grams Route: PO; bp 15:44 Follow up: Response: No adverse reaction bp Point of Care Testing: Blood Glucose: 13:46 Blood Glucose: 63 mg/dL; bp Ranges: Critical Glucose Levels:Adult <50 mg/dl or >400 mg/dl <40 mg/dl or >180 mg/dl Disposition: 02/02/19 15:[address] [facility]. Diagnosis are Hyperkalemia, Other complication of vascular dialysis catheter. - Reason for transfer: Higher level of care. - Accepting physician is nalam. - Condition is Stable. - Problem is new. - Symptoms are unchanged. Signatures: Dispatcher [facility] Gabriel Arnold MD MD gs Peltier, Brian RN RN bp Melissa Roth RN iw Corrections: (The following items were deleted from the chart) 16:24 15:24 02/02/2019 15:[address] [facility]. Diagnosis is bp Hyperkalemia; Other complication of vascular dialysis catheter. Reason for transfer: Higher level of care. Accepting physician is raciel. Condition is Stable. Problem is new. Symptoms are unchanged. gs
[2019-02-02 16:29] VITALS: TEMP 98
[2019-02-02 16:36] VITALS: BP 136/76; O2SAT 98
== END 2019-02-02 16:24 | disposition short-term general hospital (02) ==
LOC: ER 10:25
DX: E87.5 Hyperkalemia (principal); I12.0 Hypertensive chronic kidney disease with stage 5 chronic kidney disease or end stage renal disease; N18.6 End stage renal disease; Z99.2 Dependence on renal dialysis
CPT/HCPCS: 96365; 93005; 85025; 80048; 36415; 84132; 85610; 82962; 96375; 99285; J0610

== ENCOUNTER 2019-03-15 15:30 | Emergency (ER) | payer OTHER ==
[2019-03-15] MEDS ORDERED: Nicardipine/NS 25 MG/250 ML KIT IV ONE (15:38)
[2019-03-15] MEDS ORDERED: ONDANSETRON 4 MG/2 ML VIAL ONE (15:48)
[2019-03-15] MEDS ORDERED: levETIRAcetam 1,000 MG in NA CHLORIDE 0.9% 100 ML IV ONE (16:00)
[2019-03-15] MEDS ORDERED: LABETALOL HCL 100 MG/20 ML ONE (16:01)
[2019-03-15 16:06] LABS: Absolute Lymphocytes (CBC) 0.9 K/uL (0.7-4.9); Basophils % 0.8 % (0-1.3); Lymphocytes % 21.4 % (15.3-44.8); MPV 8.2 fL (7.6-11.3); RBC Red Blood Cell Count 3.81 M/uL (4.33-5.43)
[2019-03-15 16:08] LABS: Protime INR 1.03
--- NOTE | 2019-03-15 16:13 | EDPHYS ---
Physician Documentation [facility] Name: Jermaine Rivera Age: 43 yrs Sex: Male : 1975 Arrival Date: 03/15/2019 Time: 15:34 Bed 4 Private MD: ED Physician Kumar Kimbrough HPI: 03/15 15:57 This 43 yrs old Black Male presents to ER via Unassigned with complaints of left arm rn weakness. 15:57 The patient presents to the emergency department with weakness of the left upper rn extremity. Onset: The symptoms/episode began/occurred at 15:00. Associated signs and symptoms: Pertinent positives: paresthesias, weakness. Severity of symptoms: At their worst the symptoms were moderate in the emergency department the symptoms are unchanged. Current symptoms: paralysis or paresis, that is moderate. The patient has not experienced similar symptoms in the past. Reports sudden onset of left arm weakness and numbness, began at 3pm today, no trauma, has afib and supposed to take blood thinner but has not in last 2 weeks. Reports mild headache. . Historical: - Allergies: 15:40 No Known Allergies; aa5 - PMHx: 15:40 Dialysis; Hypertension; Renal Disease; aa5 - PSHx: 15:40 Dialysis catheter to left side of chest; aa5 - Family history:: not pertinent. - Ebola Screening: : No symptoms or risks identified at this time. - Hospitalizations: : No recent hospitalization is reported. ROS: 15:57 Constitutional: Negative for fever, chills, and weight loss, Eyes: Negative for injury, rn pain, redness, and discharge, Neck: Negative for injury, pain, and swelling, Cardiovascular: Negative for chest pain, palpitations, and edema, Respiratory: Negative for shortness of breath, cough, wheezing, and pleuritic chest pain, Abdomen/GI: Negative for abdominal pain, nausea, vomiting, diarrhea, and constipation, MS/Extremity: Negative for injury and deformity, Skin: Negative for injury, rash, and discoloration, Neuro: + headache and left arm weakness Exam: 15:57 Constitutional: This is a well developed, well nourished patient who is awake, alert, rn appears anxious Head/Face: Normocephalic, atraumatic. Eyes: Pupils equal round and reactive to light, extra-ocular motions intact. Lids and lashes normal. Conjunctiva and sclera are non-icteric and not injected. Cornea within normal limits. Periorbital areas with no swelling, redness, or edema. Cardiovascular: Tachycardic, regular, no murmur Respiratory: + mild tachypnea, no retractions Abdomen/GI: soft, nontender MS/ Extremity: Pulses equal, no cyanosis. Neurovascular intact. Neuro: Awake and alert, GCS 15, oriented to person, place, time, and situation. Cranial nerves II-XII grossly intact. Some effort against gravity but + drift, + decreased sensation to soft touch left arm, normal strength and sensation rest of body. Vital Signs: 15:37 BP 216 / 129; Pulse 102; Resp 20 S; Temp 98.0(TE); Pulse Ox 98% on R/A; Pain 0/10; aa5 15:42 BP 211 / 124; Pulse 105; Resp 18 S; Pulse Ox 98% on R/A; aa5 15:50 BP 203 / 132; Pulse 107; Resp 18 S; Pulse Ox 99% on R/A; aa5 15:57 BP 203 / 131; Pulse 109; Resp 20 S; Pulse Ox 99% on R/A; aa5 16:06 BP 189 / 115; Pulse 109; Resp 20 S; Pulse Ox 99% on R/A; aa5 16:10 BP 185 / 114; Pulse 100; Resp 22 S; Pulse Ox 98% on R/A; aa5 16:15 BP 186 / 118; Pulse 102; Resp 18 S; Pulse Ox 98% on R/A; aa5 16:25 BP 188 / 104; Pulse 110; Resp 16 S; Temp 98.1(TE); Pulse Ox 98% on R/A; aa5 16:45 BP 185 / 111; Pulse 111; Resp 20 S; Pulse Ox 98% on R/A; aa5 17:00 BP 183 / 112; Pulse 106; Resp 20 S; Pulse Ox 99% on R/A; aa5 NIH Stroke Scale Scores: 15:38 NIHSS Score: 3 aa5 16:00 NIHSS Score: 3 aa5 16:30 NIHSS Score: 3 aa5 MDM: 15:34 Patient medically screened. rn 15:57 Data reviewed: vital signs, nurses notes, radiologic studies, CT scan, and as a result, rn I will admit patient. Counseling: I had a detailed discussion with the patient and/or guardian regarding: the historical points, exam findings, and any diagnostic results supporting the discharge/admit diagnosis, radiology results, the need to transfer to another facility, for higher level of care, [facility] does not immediately have the required specialist. Response to treatment: the patient's symptoms have mildly improved after treatment. Admission orders: after a detailed discussion of the patient's condition and case, the admit orders are written by me. ED course: initiated transfer to [facility], for life flight for hypertensive hemorrhage right thalamus, cardene drip started, and keppra given. requests [facility] for care. Explained results and treatment to family, as well as need for transfer. . 16:11 ED course: Accepted for transfer to [facility] by Dr. Stephens. . rn 03/15 15:38 Order name: Basic Metabolic Panel; Complete Time: 17:03 hb 03/15 15:38 Order name: CBC with Diff; Complete Time: 17:03 hb 03/15 15:38 Order name: Protime (+inr); Complete Time: 17:03 hb 03/15 15:38 Order name: Ptt, Activated; Complete Time: 17:03 hb 03/15 15:38 Order name: CT Stroke Brain w/o Contrast; Complete Time: 17:03 hb 03/15 15:38 Order name: Stroke CXR 1 View; Complete Time: 17:03 hb 03/15 15:38 Order name: EKG; Complete Time: 15:38 hb 03/15 15:38 Order name: Accucheck; Complete Time: 15:54 hb 03/15 15:38 Order name: Cardiac monitoring; Complete Time: 15:54 hb 03/15 15:38 Order name: EKG - Nurse/Tech; Complete Time: 15:54 hb 03/15 15:38 Order name: IV Saline Lock; Complete Time: 15:54 hb 03/15 15:38 Order name: Labs collected and sent; Complete Time: 15:54 hb 03/15 15:38 Order name: NPO; Complete Time: 15:54 hb 03/15 15:38 Order name: O2 Per Protocol; Complete Time: 15:55 hb 03/15 15:38 Order name: O2 Sat Monitoring; Complete Time: 15:55 hb 03/15 15:38 Order name: Stroke Swallow Screen; Complete Time: 16:42 hb Administered Medications: 15:42 Drug: niCARdipine (25mg/250ml) 5 mg/hr {Note: VO received at 1540.} Route: IV; Rate: 1 aa5 calculated rate; Site: right antecubital; 15:57 Follow up: Started infusion at 5mg/hr at 1542, increased to 10mg/hr at 1550 per MD, aa5 increased to 15mg/hr per MD at 1557. 16:00 Drug: Keppra 1000 mg Route: IV; Rate: calculated rate; Site: left forearm; aa5 16:15 Follow up: Response: No adverse reaction; IV Status: Completed infusion aa5 16:04 Drug: Labetalol 10 mg Route: IVP; Site: left forearm; aa5 16:06 Follow up: Response: No adverse reaction; No adverse reaction. Blood pressure has aa5 improved. 16:11 CANCELLED (Patient Refused): Zofran 4 mg IVP once; over 2 minutes aa5 Point of Care Testing: Blood Glucose: 15:40 Blood Glucose: 93 mg/dL; aa5 Ranges: Critical Glucose Levels:Adult <50 mg/dl or >400 mg/dl <40 mg/dl or >180 mg/dl Disposition: 03/15/19 16:13 Transfer ordered to [facility]. Diagnosis are Intracerebral hemorrhage, right thalamus, Malignant Hypertension. - Reason for transfer: Higher level of care. - Accepting physician is Dr. Stephens. - Condition is Fair. - Problem is new. - Symptoms have improved. Critical care time excluding procedures: 16:11 Critical care time: Bedside Care: 25 minutes, Consultation: 5 minutes. Total time: 30 rn minutes NIH Stroke Scale - NIH Stroke Score Date: 03/15/2019 Time: 15:38 Total Score = 3 1a. Level of Consciousness (LOC) - 0(Alert) 1b. Level of Consciousness (LOC) (Year \T\ Age) - 0(Both) 1c. LOC Commands (Open \T\ Closes Eyes/Installation Supervisor) - 0(Both) 2. Best Gaze (Lateral Gaze Paresis) - 0(Normal) 3. Visual Field Loss - 0(No visual loss) 4. Facial Palsy - 0(Normal) 5a. Left Arm: Motor (10-second hold) - 2(Drift, some effort against gravity) 5b. Right Arm: Motor (10-second hold) - 0(No drift) 6a. Left Leg: Motor (5-second hold - always test supine) - 0(No drift) 6b. Right Leg: Motor (5-second hold - always test supine) - 0(No drift) 7. Limb Ataxia (finger/nose \T\ heel/cruz - test with eyes open) - 0(Absent) 8. Sensory Loss (pinprick arms/legs/face) - 1(Mild to moderate loss) 9. Best Language: Aphasia (description/naming/reading) - 0(No aphasia) 10. Dysarthria (speech clarity - read or repeat words) - 0(Normal) 11. Extinction and Inattention (visual/tactile/auditory/spatial/personal) - 0(No abnormality) Initials: [facility] NIH Stroke Scale - NIH Stroke Score Date: 03/15/2019 Time: 16:00 Total Score = 3 1a. Level of Consciousness (LOC) - 0(Alert) 1b. Level of Consciousness (LOC) (Year \T\ Age) - 0(Both) 1c. LOC Commands (Open \T\ Closes Eyes/Installation Supervisor) - 0(Both) 2. Best Gaze (Lateral Gaze Paresis) - 0(Normal) 3. Visual Field Loss - 0(No visual loss) 4. Facial Palsy - 0(Normal) 5a. Left Arm: Motor (10-second hold) - 2(Drift, some effort against gravity) 5b. Right Arm: Motor (10-second hold) - 0(No drift) 6a. Left Leg: Motor (5-second hold - always test supine) - 0(No drift) 6b. Right Leg: Motor (5-second hold - always test supine) - 0(No drift) 7. Limb Ataxia (finger/nose \T\ heel/cruz - test with eyes open) - 0(Absent) 8. Sensory Loss (pinprick arms/legs/face) - 1(Mild to moderate loss) 9. Best Language: Aphasia (description/naming/reading) - 0(No aphasia) 10. Dysarthria (speech clarity - read or repeat words) - 0(Normal) 11. Extinction and Inattention (visual/tactile/auditory/spatial/personal) - 0(No abnormality) Initials: aa5 NIH Stroke Scale - NIH Stroke Score Date: 03/15/2019 Time: 16:30 Total Score = 3 1a. Level of Consciousness (LOC) - 0(Alert) 1b. Level of Consciousness (LOC) (Year \T\ Age) - 0(Both) 1c. LOC Commands (Open \T\ Closes Eyes/Installation Supervisor) - 0(Both) 2. Best Gaze (Lateral Gaze Paresis) - 0(Normal) 3. Visual Field Loss - 0(No visual loss) 4. Facial Palsy - 0(Normal) 5a. Left Arm: Motor (10-second hold) - 2(Drift, some effort against gravity) 5b. Right Arm: Motor (10-second hold) - 0(No drift) 6a. Left Leg: Motor (5-second hold - always test supine) - 0(No drift) 6b. Right Leg: Motor (5-second hold - always test supine) - 0(No drift) 7. Limb Ataxia (finger/nose \T\ heel/cruz - test with eyes open) - 0(Absent) 8. Sensory Loss (pinprick arms/legs/face) - 1(Mild to moderate loss) 9. Best Language: Aphasia (description/naming/reading) - 0(No aphasia) 10. Dysarthria (speech clarity - read or repeat words) - 0(Normal) 11. Extinction and Inattention (visual/tactile/auditory/spatial/personal) - 0(No abnormality) Initials: christine Signatures: Dispatcher [employer] EDKumar Andres MD MD rn Calderon, Audri, RN RN aa5 Baxter, Heather, RN RN Corrections: (The following items were deleted from the chart) 16:11 15:44 Zofran 4 mg IVP once; over 2 minutes ordered. joann king 17:05 16:13 03/15/2019 16:13 Transfer ordered to [address] Diagnosis is Intracerebral hemorrhage, right thalamus; Malignant Hypertension. Reason for transfer: Higher level of care. Accepting physician is Dr. Stephens. Condition is Fair. Problem is new. Symptoms have improved. joann
--- NOTE | 2019-03-15 16:13 | ER ---
Nurse's Notes [facility] Name: Jermaine Rivera Age: 43 yrs Sex: Male : 1975 Arrival Date: 03/15/2019 Time: 15:34 Bed 4 Private MD: Diagnosis: Intracerebral hemorrhage, right thalamus;Malignant Hypertension Presentation: 03/15 15:34 Note Pt currently in CT accompanied by Gladys Zarco RN. aa5 15:37 Presenting complaint: EMS states: pt was in the shower when left arm weakness began at aa5 1500. Pt reports decreased sensation to left arm. Left arm drift noted. 15:37 Transition of care: patient was not received from another setting of care. Onset of aa5 symptoms was March 15, 2019. Risk Assessment: Do you want to hurt yourself or someone else? Patient reports no desire to harm self or others. Initial Sepsis Screen: Does the patient meet any 2 criteria? HR > 90 bpm. Does the patient have a suspected source of infection? No. Patient's initial sepsis screen is negative. Care prior to arrival: IV initiated. 18 GA, in the right antecubital area. 15:37 Method Of Arrival: EMS: [facility] aa5 15:37 Acuity: FERNANDA 2 aa5 15:37 An acute neurological deficit is present. The patients blood glucose was checked before aa5 arriving to the hospital and was found to be normal. Triage Assessment: 15:37 The onset of the patients symptoms was March 15, 2019 at 15:00. aa5 Stroke Activation: Symptom onset < 3 hours Physician: Stroke Attending; Name: ; Notified At: ; Arrived At: Physician: Chief Stroke Resident; Name: ; Notified At: ; Arrived At: Physician: Stroke Resident; Name: ; Notified At: ; Arrived At: Physician: ED Attending; Name: ; Notified At: ; Arrived At: Physician: ED Resident; Name: ; Notified At: ; Arrived At: Historical: - Allergies: 15:40 No Known Allergies; aa5 - PMHx: 15:40 Dialysis; Hypertension; Renal Disease; aa5 - PSHx: 15:40 Dialysis catheter to left side of chest; aa5 - Family history:: not pertinent. - Ebola Screening: : No symptoms or risks identified at this time. - Hospitalizations: : No recent hospitalization is reported. Screenin:00 Abuse screen: Denies threats or abuse. Nutritional screening: No deficits noted. aa5 Tuberculosis screening: No symptoms or risk factors identified. Fall Risk Secondary diagnosis (15 points) CVA, IV access (20 points). Total Ceja Fall Scale indicates Low Risk Score (25-44 pts). Fall prevention measures have been instituted. Side Rails Up X 2 Placed close to Nursing Station. Assessment: 15:37 Reassessment: Pt back from CT . aa5 15:37 General: Appears comfortable, Behavior is calm, cooperative. Pain: Denies pain. Neuro: aa5 Level of Consciousness is awake, alert, obeys commands, Oriented to person, place, time, situation, Broke Worker are weak on left Moves all extremities. Weakness in left leg(s) Speech is normal, Facial symmetry appears normal, Pupils are PERRLA, Decreased sensation to left arm . Cardiovascular: Heart tones S1 S2 present Rhythm is regular. Respiratory: Airway is patent Respiratory effort is even, unlabored, Respiratory pattern is regular, symmetrical, Breath sounds are clear bilaterally. GI: Abdomen is round non-distended, Bowel sounds present X 4 quads. Abd is soft and non tender X 4 quads. : No signs and/or symptoms were reported regarding the genitourinary system. EENT: No signs and/or symptoms were reported regarding the EENT system. Derm: Skin is dry, Skin is normal, Skin temperature is warm. Musculoskeletal: Range of motion: intact in all extremities. 15:37 Reassessment: Pt states "I am supposed to be taking a blood thinner but I stopped aa5 taking it about 2 weeks ago" . 15:38 VAN Scoring: Arm Drift: Severe drift Visual Disturbance: No visual disturbance noted. aa5 Aphasia: No aphasia noted. Neglect: No neglect noted. 15:40 T-PA (Activase) Screening: Contraindications: Intracranial hemorrhage and its risk aa5 factor and suspicion of subarachnoid bleed: Yes. 16:00 Neuro: Level of Consciousness is awake, alert, obeys commands, Oriented to person, aa5 place, time, situation. Respiratory: Airway is patent Respiratory effort is even, unlabored, Respiratory pattern is regular, symmetrical. Derm: Skin is dry, Skin is normal, Skin temperature is warm. 16:30 Patient has been NPO before screening. The patient is alert, and able to follow aa5 commands. The patient does not exhibit slurred or garbled speech. The patient is not exhibiting difficulty speaking. The patient does not exhibit difficulty understanding words. The patient is able to swallow own secretions with no drooling or need for suction. Patient tolerated one teaspoon of water. No drooling, immediate coughing, gurgling, or clearing of the throat was noted. The patient tolerated 90mL of water. No drooling, immediate coughing, gurgling, or clearing of the throat was noted. The patient passed the bedside swallow screening. Oral medications may be given as ordered. Contact Physician for further diet orders. Provider notified of bedside swallow screening results: Kumar Kimbrough MD. 16:30 Neuro: Level of Consciousness is awake, alert, obeys commands, Oriented to person, aa5 place, time, situation, Broke Worker are weak on left Moves all extremities. Weakness in left leg(s) Speech is normal, Facial symmetry appears normal, Pupils are PERRLA, decreased sensation to left arm . Respiratory: Airway is patent Respiratory effort is even, unlabored, Respiratory pattern is regular, symmetrical. Derm: Skin is dry, Skin is normal, Skin temperature is warm. 16:45 Reassessment: Life flight at bedside. . aa5 Vital Signs: 15:37 BP 216 / 129; Pulse 102; Resp 20 S; Temp 98.0(TE); Pulse Ox 98% on R/A; Pain 0/10; aa5 15:42 BP 211 / 124; Pulse 105; Resp 18 S; Pulse Ox 98% on R/A; aa5 15:50 BP 203 / 132; Pulse 107; Resp 18 S; Pulse Ox 99% on R/A; aa5 15:57 BP 203 / 131; Pulse 109; Resp 20 S; Pulse Ox 99% on R/A; aa5 16:06 BP 189 / 115; Pulse 109; Resp 20 S; Pulse Ox 99% on R/A; aa5 16:10 BP 185 / 114; Pulse 100; Resp 22 S; Pulse Ox 98% on R/A; aa5 16:15 BP 186 / 118; Pulse 102; Resp 18 S; Pulse Ox 98% on R/A; aa5 16:25 BP 188 / 104; Pulse 110; Resp 16 S; Temp 98.1(TE); Pulse Ox 98% on R/A; aa5 16:45 BP 185 / 111; Pulse 111; Resp 20 S; Pulse Ox 98% on R/A; aa5 17:00 BP 183 / 112; Pulse 106; Resp 20 S; Pulse Ox 99% on R/A; aa5 NIH Stroke Scale Scores: 15:38 NIHSS Score: 3 aa5 16:00 NIHSS Score: 3 aa5 16:30 NIHSS Score: 3 aa5 ED Course: 15:30 No provider procedures requiring assistance completed. aa5 15:34 Patient arrived in ED. hb 15:34 Kumar Kimbrough MD is Attending Physician. rn 15:37 Arm band placed on. aa5 15:37 Patient has correct armband on for positive identification. Placed in gown. Bed in low aa5 position. Call light in reach. Side rails up X2. 15:42 CT Stroke Brain w/o Contrast In Process Unspecified. EDMS 15:55 EKG done, by ED staff, reviewed by Kumar Kimbrough MD. ms 15:55 Inserted saline lock: 22 gauge in left forearm, using aseptic technique. aa5 15:55 Maintain EMS IV. Gauge \\T\\ site: 18 G to R AC . aa5 16:11 Cris Cagle, CHRISTOPHE is Primary Nurse. aa5 16:18 Triage completed. aa5 16:23 Stroke CXR 1 View In Process Unspecified. EDMS 16:25 initiated transfer to [facility]. spoke with sylwia ponce. \\T\\[id number]. 16:28 \\T\\1610 dr kimbrough spoke with dr burrell. 16:29 \\T\\1615 sylwia ponce gave administrative approval patient going to [facility] neuro icu. 16:30 faxed facesheet and MOT to [phone]. 17:00 Patient transferred, IV remains in place. aa5 Administered Medications: 15:42 Drug: niCARdipine (25mg/250ml) 5 mg/hr {Note: VO received at 1540.} Route: IV; Rate: 1 aa5 calculated rate; Site: right antecubital; 15:57 Follow up: Started infusion at 5mg/hr at 1542, increased to 10mg/hr at 1550 per MD, aa5 increased to 15mg/hr per MD at 1557. 16:00 Drug: Keppra 1000 mg Route: IV; Rate: calculated rate; Site: left forearm; aa5 16:15 Follow up: Response: No adverse reaction; IV Status: Completed infusion aa5 16:04 Drug: Labetalol 10 mg Route: IVP; Site: left forearm; aa5 16:06 Follow up: Response: No adverse reaction; No adverse reaction. Blood pressure has aa5 improved. 16:11 CANCELLED (Patient Refused): Zofran 4 mg IVP once; over 2 minutes aa5 Point of Care Testing: Blood Glucose: 15:40 Blood Glucose: 93 mg/dL; aa5 Ranges: Intake: Outcome: 16:13 ER care complete, transfer ordered by . rn 17:00 Transferred by helicopter Transfer form completed. X-rays sent w/ patient. Note: To aa5 [facility] ICU bed 4. Report given to life flight. 17:00 Condition: stable aa5 17:00 Discharge instructions given to patient, significant other, Instructed on the need for transfer, Demonstrated understanding of instructions. 17:05 Patient left the ED. aa5 NIH Stroke Scale - NIH Stroke Score Date: 03/15/2019 Time: 15:38 Total Score = 3 1a. Level of Consciousness (LOC) - 0(Alert) 1b. Level of Consciousness (LOC) (Year \\T\\ Age) - 0(Both) 1c. LOC Commands (Open \\T\\ Closes Eyes/Foam Machine Operator) - 0(Both) 2. Best Gaze (Lateral Gaze Paresis) - 0(Normal) 3. Visual Field Loss - 0(No visual loss) 4. Facial Palsy - 0(Normal) 5a. Left Arm: Motor (10-second hold) - 2(Drift, some effort against gravity) 5b. Right Arm: Motor (10-second hold) - 0(No drift) 6a. Left Leg: Motor (5-second hold - always test supine) - 0(No drift) 6b. Right Leg: Motor (5-second hold - always test supine) - 0(No drift) 7. Limb Ataxia (finger/nose \\T\\ heel/cruz - test with eyes open) - 0(Absent) 8. Sensory Loss (pinprick arms/legs/face) - 1(Mild to moderate loss) 9. Best Language: Aphasia (description/naming/reading) - 0(No aphasia) 10. Dysarthria (speech clarity - read or repeat words) - 0(Normal) 11. Extinction and Inattention (visual/tactile/auditory/spatial/personal) - 0(No abnormality) Initials: aa5 NIH Stroke Scale - NIH Stroke Score Date: 03/15/2019 Time: 16:00 Total Score = 3 1a. Level of Consciousness (LOC) - 0(Alert) 1b. Level of Consciousness (LOC) (Year \\T\\ Age) - 0(Both) 1c. LOC Commands (Open \\T\\ Closes Eyes/Foam Machine Operator) - 0(Both) 2. Best Gaze (Lateral Gaze Paresis) - 0(Normal) 3. Visual Field Loss - 0(No visual loss) 4. Facial Palsy - 0(Normal) 5a. Left Arm: Motor (10-second hold) - 2(Drift, some effort against gravity) 5b. Right Arm: Motor (10-second hold) - 0(No drift) 6a. Left Leg: Motor (5-second hold - always test supine) - 0(No drift) 6b. Right Leg: Motor (5-second hold - always test supine) - 0(No drift) 7. Limb Ataxia (finger/nose \\T\\ heel/cruz - test with eyes open) - 0(Absent) 8. Sensory Loss (pinprick arms/legs/face) - 1(Mild to moderate loss) 9. Best Language: Aphasia (description/naming/reading) - 0(No aphasia) 10. Dysarthria (speech clarity - read or repeat words) - 0(Normal) 11. Extinction and Inattention (visual/tactile/auditory/spatial/personal) - 0(No abnormality) Initials: aa5 NIH Stroke Scale - NIH Stroke Score Date: 03/15/2019 Time: 16:30 Total Score = 3 1a. Level of Consciousness (LOC) - 0(Alert) 1b. Level of Consciousness (LOC) (Year \\T\\ Age) - 0(Both) 1c. LOC Commands (Open \\T\\ Closes Eyes/Foam Machine Operator) - 0(Both) 2. Best Gaze (Lateral Gaze Paresis) - 0(Normal) 3. Visual Field Loss - 0(No visual loss) 4. Facial Palsy - 0(Normal) 5a. Left Arm: Motor (10-second hold) - 2(Drift, some effort against gravity) 5b. Right Arm: Motor (10-second hold) - 0(No drift) 6a. Left Leg: Motor (5-second hold - always test supine) - 0(No drift) 6b. Right Leg: Motor (5-second hold - always test supine) - 0(No drift) 7. Limb Ataxia (finger/nose \\T\\ heel/cruz - test with eyes open) - 0(Absent) 8. Sensory Loss (pinprick arms/legs/face) - 1(Mild to moderate loss) 9. Best Language: Aphasia (description/naming/reading) - 0(No aphasia) 10. Dysarthria (speech clarity - read or repeat words) - 0(Normal) 11. Extinction and Inattention (visual/tactile/auditory/spatial/personal) - 0(No abnormality) Initials: aa5 Signatures: Dispatcher [employer] EDMS Lenora Gonzales ms, Roman, MD MD rn Calderon, Audri, RN RN aa5 Gladys Zarco RN RN hb Moya, Gabriella gm Corrections: (The following items were deleted from the chart) 17:46 16:13 Patient transferred, IV remains in place. aa5 aa5
--- NOTE | 2019-03-15 16:17 | RAD REPORT ---
EXAM DESCRIPTION: CT - Ct Stroke Brain Wo Cont - 03/15/2019 3:41 pm CLINICAL HISTORY: Acute stroke symptoms CLINICAL HISTORY: CT head July 2017 TECHNIQUE: Axial 5 millimeter thick images of the head were obtained without IV contrast. All CT scans are performed using dose optimization technique as appropriate and may include automated exposure control or mA/KV adjustment according to patient size. FINDINGS: A 3.5 centimeter intraparenchymal acute hemorrhage is present centered in the lateral aspe ct of the right thalamus at the posterior limb internal capsule. This extends superiorly into the marija p periventricular white matter of the posterior right frontal lobe. No midline shift. No other site o f hemorrhage. No cortical edema. No intraventricular extension. No vascular malformation or AVN ident ified. No acute infarction identifiable. No extra-axial fluid collections. Muro matter-white matter differe ntiation is preserved. No globe or orbital content abnormality. Ventricles are normal. Visualized portions of the mastoid air cells, paranasal sinuses, and orbits are unremarkable. Images were initially only available in the exceptions folder which precludes immediate dictation of the report. Findings were telephoned to the referring clinician 1539 hours. IMPRESSION: Acute 3.5 centimeter intraparenchymal bleed in the lateral right thalamus posterior limb internal capsule region. This bleed extends superiorly into the deep periventricular white matter of the posterior right frontal lobe.
[2019-03-15 16:32] LABS: Potassium 3.5 mmol/L (3.5-5.1)
--- NOTE | 2019-03-15 16:41 | RAD REPORT ---
EXAM DESCRIPTION: RAD - Chest Single View - 03/15/2019 4:22 pm CLINICAL HISTORY: Code stroke chest film COMPARISON: January 2018 TECHNIQUE: AP portable chest image was obtained 1614 hours . FINDINGS: No focal mass or consolidation. Cardiomegaly is present increased slightly from comparison . Vascular engorgement is seen centrally. Left-sided dialysis catheter has been placed. Catheter has been repositioned since the prior imaging. Trachea is midline. No measurable pleural effusion and no pneumothorax. No acute bony abnormality seen. No acute aortic findings suspected. IMPRESSION: Cardiomegaly and vascular engorgement without significant interstitial edema in the nicole pheral lung montiel. No focal mass or consolidation.
[2019-03-15 18:26] VITALS: TEMP 98; O2SAT 98
[2019-03-15 18:28] VITALS: BP 185/114
--- NOTE | 2019-03-16 09:46 | EKG ---
Test Date: 2019-03-15 Test Time: 15:50:52 Storage Architect: MEASUREMENT RESULTS: Intervals: Rate: 108 DE: 142 QRSD: 92 QT: 358 QTc: 479 [place]: P: 76 DE: 142 QRS: 9 T: 104 INTERPRETIVE STATEMENTS: Sinus tachycardia with occasional premature ventricular complexes T wave abnormality, consider lateral ischemia Abnormal ECG Compared to ECG 02/02/2019 11:07:40 Ventricular premature complex(es) now present Sinus rhythm no longer present T-wave abnormality still present Possible ischemia still present Electronically Signed On 03-16-19 09:46:25 CDT by Naveen Vasquez
== END 2019-03-15 17:05 | disposition short-term general hospital (02) ==
LOC: ER 15:30
DX: I61.8 Other nontraumatic intracerebral hemorrhage (principal); I10 Essential (primary) hypertension
CPT/HCPCS: 93005; 85025; 80048; 36415; 85610; 82962; 85730; 70450; 71045; 96375; 96374; 99285; J1953; J2405

== ENCOUNTER 2019-03-21 22:29 | Emergency (ER) | payer OTHER ==
[~2019-03-21 22:29] MED LIST: ALBUTEROL 2.5 MG/3 ML NEB SOL ONE; IPRATROPIUM BROM 0.5MG/2.5ML ONE
[2019-03-21 23:40] LABS: Absolute Lymphocytes (CBC) 0.4 K/uL (0.7-4.9); Hematocrit 29.9 % (39.6-49.0); Lymphocytes % 13.7 % (15.3-44.8); MPV 7.7 fL (7.6-11.3); Protime INR 1.04; RBC Red Blood Cell Count 3.49 M/uL (4.33-5.43)
[2019-03-22 00:07] LABS: Albumin 3.4 g/dL (3.4-5.0); Bilirubin Direct 0.1 mg/dL (0-0.2); Bilirubin Total 0.3 mg/dL (0.2-1.0); Protein, Total 7.3 g/dL (6.4-8.2)
[2019-03-22 00:08] LABS: Magnesium 2.4 mg/dL (1.8-2.4); Troponin (Emerg Dept Use Only) 0.1 ng/mL (0.0-0.045)
--- NOTE | 2019-03-22 03:10 | EDPHYS ---
Physician Documentation [facility] Name: Jermaine Rivera Age: 43 yrs Sex: Male : 1975 Arrival Date: 03/21/2019 Time: 22:33 Bed 20 Private MD: ED Physician Gabriel Booth HPI: 03/22 04:32 This 43 yrs old Black Male presents to ER via EMS with complaints of Anxiety. gs 04:32 The patient has shortness of breath at rest. Onset: The symptoms/episode began/occurred gs 2 hour(s) ago. 04:39 Duration: The symptoms lasted 10 minutes then resolved. The patient's shortness of gs breath is alleviated by nothing. Associated signs and symptoms: Pertinent negatives: chest pain, diaphoresis, visual changes, vomiting. Severity of symptoms: At their worst the symptoms were moderate in the emergency department the symptoms have resolved. The patient has experienced similar episodes in the past, a few times. Historical: - Allergies: 03/21 22:43 No Known Allergies; rr5 - Home Meds: 22:43 hydralazine 100 mg Oral tab 1 tab 3 times per day [Active]; metoprolol tartrate 50 mg rr5 Oral tab 2 tabs 2 times per day [Active]; nifedipine 90 mg Oral cpER 1 tab twice a day [Active]; Renagel Oral [Active]; Crystal-Angie Oral [Active]; terazosin 5 mg Oral cap 2 caps twice a day [Active]; - PMHx: 22:43 Dialysis; Hypertension; Renal Disease; brain bleed; rr5 - PSHx: 22:43 None; rr5 - Immunization history:: Adult Immunizations up to date. - Social history:: Smoking status: Patient/guardian denies using tobacco, Patient/guardian denies using alcohol, street drugs. - Ebola Screening: : Patient negative for fever greater than or equal to 101.5 degrees Fahrenheit, and additional compatible Ebola Virus Disease symptoms Patient denies exposure to infectious person Patient denies travel to an Ebola-affected area in the 21 days before illness onset. ROS: 03/22 04:39 All other systems are negative. gs Exam: 04:39 Head/Face: Normocephalic, atraumatic. Eyes: Pupils equal round and reactive to light, gs extra-ocular motions intact. Lids and lashes normal. Conjunctiva and sclera are non-icteric and not injected. Cornea within normal limits. Periorbital areas with no swelling, redness, or edema. ENT: Nares patent. No nasal discharge, no septal abnormalities noted. Tympanic membranes are normal and external auditory canals are clear. Oropharynx with no redness, swelling, or masses, exudates, or evidence of obstruction, uvula midline. Mucous membranes moist. Neck: Trachea midline, no thyromegaly or masses palpated, and no cervical lymphadenopathy. Supple, full range of motion without nuchal rigidity, or vertebral point tenderness. No Meningismus. Chest/axilla: Normal chest wall appearance and motion. Nontender with no deformity. No lesions are appreciated. Cardiovascular: Regular rate and rhythm with a normal S1 and S2. No gallops, murmurs, or rubs. Normal PMI, no JVD. No pulse deficits. Respiratory: Lungs have equal breath sounds bilaterally, clear to auscultation and percussion. No rales, rhonchi or wheezes noted. No increased work of breathing, no retractions or nasal flaring. Abdomen/GI: Soft, non-tender, with normal bowel sounds. No distension or tympany. No guarding or rebound. No evidence of tenderness throughout. Back: No spinal tenderness. No costovertebral tenderness. Full range of motion. Skin: Warm, dry with normal turgor. Normal color with no rashes, no lesions, and no evidence of cellulitis. MS/ Extremity: Pulses equal, no cyanosis. Neurovascular intact. Full, normal range of motion. 04:39 Constitutional: The patient appears alert, awake. 04:39 Neuro: Exam negative for acute changes, Orientation: to person, place, time \T\ situation. Motor: left sided paresis recent cva. Vital Signs: 03/21 22:35 BP 112 / 58; Pulse 87; Resp 17; Temp 99; Pulse Ox 97% ; Weight 90.72 kg; Height 6 ft. rr5 (182.88 cm); Pain 0/10; 23:29 BP 92 / 42; Pulse 84; Resp 15; Pulse Ox 98% on R/A; rr5 03/22 00:08 BP 100 / 46; Pulse 87; Resp 19; Pulse Ox 98% on R/A; rr5 01:00 BP 115 / 79; Pulse 85; Resp 16; Pulse Ox 100% ; rr5 01:46 BP 121 / 67; Pulse 90; Resp 14; Pulse Ox 98% ; Pain 0/10; rr5 03:00 BP 97 / 41; Pulse 93; Resp 16; Pulse Ox 97% ; rr5 03:23 BP 105 / 62; Pulse 88; Resp 16; Temp 99.2; Pulse Ox 99% ; Pain 0/10; rr5 03/21 22:35 Body Mass Index 27.12 (90.72 kg, 182.88 cm) rr5 MDM: 03/21 23:08 Patient medically screened. 03/22 04:39 Differential diagnosis: CHF exacerbation, Myocardial Infarction pneumonia. Data gs reviewed: vital signs, nurses notes, old medical records, lab test result(s), EKG, radiologic studies. Counseling: I had a detailed discussion with the patient and/or guardian regarding: the historical points, exam findings, and any diagnostic results supporting the discharge/admit diagnosis, lab results, radiology results, the need for outpatient follow up. Response to treatment: the patient's symptoms have resolved after treatment, the patient's condition has returned to base line. 03/21 23:10 Order name: Basic Metabolic Panel; Complete Time: 00:17 03/21 23:10 Order name: CBC with Diff; Complete Time: 00:17 03/21 23:10 Order name: LFT's; Complete Time: 00:17 03/21 23:10 Order name: Magnesium; Complete Time: 00:17 03/21 23:10 Order name: NT PRO-BNP; Complete Time: 00:17 03/21 23:10 Order name: PT-INR; Complete Time: 00:17 03/21 23:10 Order name: Troponin (emerg Dept Use Only); Complete Time: 00:17 03/21 23:10 Order name: XRAY Chest (1 view) 03/21 23:10 Order name: EKG; Complete Time: 23:11 03/21 23:10 Order name: Cardiac monitoring; Complete Time: 23:11 03/21 23:10 Order name: EKG - Nurse/Tech; Complete Time: 23:28 03/21 23:10 Order name: IV Saline Lock; Complete Time: : 03/21 23:10 Order name: Labs collected and sent; Complete Time: 23:28 03/22 00:59 Order name: Troponin (emerg Dept Use Only); Complete Time: 02:46 gs 03/21 23:10 Order name: O2 Per Protocol; Complete Time: 23:30 gs 03/21 23:10 Order name: O2 Sat Monitoring; Complete Time: 23:30 gs Administered Medications: No medications were administered Disposition: 03/22/19 03:10 Discharged to Home. Impression: Dyspnea. - Condition is Stable. - Discharge Instructions: Shortness of Breath, [id number]. - Medication Reconciliation Form, Thank You Letter, Antibiotic Education, Prescription Opioid Use form. - Follow up: Private Physician; When: 2 - 3 days; Reason: Re-evaluation by your physician. - Problem is new. - Symptoms are resolved. Signatures: Dispatcher [employer] EDGabriel Hillman MD MD gs Roque, Raymond RN RN rr5 Corrections: (The following items were deleted from the chart) 03:24 03:10 03/22/2019 03:10 Discharged to Home. Impression: Dyspnea. Condition is Stable. rr5 Forms are Medication Reconciliation Form, Thank You Letter, Antibiotic Education, Prescription Opioid Use. Follow up: Private Physician; When: 2 - 3 days; Reason: Re-evaluation by your physician. Problem is new. Symptoms are resolved.
--- NOTE | 2019-03-22 03:10 | ER ---
Nurse's Notes [facility] Name: Jermaine Rivera Age: 43 yrs Sex: Male : 1975 Arrival Date: 03/21/2019 Time: 22:33 Bed 20 Private MD: Diagnosis: Dyspnea Presentation: 03/21 22:30 Presenting complaint: EMS states: patient complaint of SOB. he was here couple of days rr5 ago for the diagnosis of brain bleed and was transfer, with left side deficit. vitally stable. 22:30 Transition of care: patient was not received from another setting of care. Onset of rr5 symptoms was March 21, 2019 at 21:30. Risk Assessment: Do you want to hurt yourself or someone else? Patient reports no desire to harm self or others. Initial Sepsis Screen: Does the patient meet any 2 criteria? No. Patient's initial sepsis screen is negative. Does the patient have a suspected source of infection? No. Patient's initial sepsis screen is negative. Note patient states had a shortness of breath started 2130H and got panic attack, called 911. right now i feel fine denies any pain. Care prior to arrival: None. 22:30 Method Of Arrival: EMS: [facility] rr5 22:30 Acuity: FERNANDA 3 rr5 Historical: - Allergies: 22:43 No Known Allergies; rr5 - Home Meds: 22:43 hydralazine 100 mg Oral tab 1 tab 3 times per day [Active]; metoprolol tartrate 50 mg rr5 Oral tab 2 tabs 2 times per day [Active]; nifedipine 90 mg Oral cpER 1 tab twice a day [Active]; Renagel Oral [Active]; Crystal-Angie Oral [Active]; terazosin 5 mg Oral cap 2 caps twice a day [Active]; - PMHx: 22:43 Dialysis; Hypertension; Renal Disease; brain bleed; rr5 - PSHx: 22:43 None; rr5 - Immunization history:: Adult Immunizations up to date. - Social history:: Smoking status: Patient/guardian denies using tobacco, Patient/guardian denies using alcohol, street drugs. - Ebola Screening: : Patient negative for fever greater than or equal to 101.5 degrees Fahrenheit, and additional compatible Ebola Virus Disease symptoms Patient denies exposure to infectious person Patient denies travel to an Ebola-affected area in the 21 days before illness onset. Screenin:35 Abuse screen: Denies threats or abuse. Denies injuries from another. Nutritional rr5 screening: No deficits noted. Tuberculosis screening: No symptoms or risk factors identified. Fall Risk Ambulatory Aid- Crutches/Cane/Walker (15 pts). Gait- Impaired (20 pts.). Mental Status- Oriented to own ability (0 pts). Total Ceja Fall Scale indicates Low Risk Score (25-44 pts). Fall prevention measures have been instituted. Side Rails Up X 2 Placed close to Nursing Station Frequent Obs/Assesments occuring Family Present and informed to notify staff if they need to leave bedside As available Patient and Family Educated on Fall Prevention Program and strategies. Assessment: 22:35 General: Appears in no apparent distress. comfortable, Behavior is calm, cooperative, rr5 appropriate for age. 22:35 Pain: Denies pain. Neuro: Level of Consciousness is awake, alert, obeys commands, rr5 Oriented to person, place, time, situation, Appropriate for age Weakness in left hand(s) arm(s) leg(s) foot/feet Speech is normal. Cardiovascular: Capillary refill < 3 seconds Patient's skin is warm and dry. Respiratory: Airway is patent Respiratory effort is even, unlabored, Respiratory pattern is regular, symmetrical. GI: No signs and/or symptoms were reported involving the gastrointestinal system. : No signs and/or symptoms were reported regarding the genitourinary system. EENT: No signs and/or symptoms were reported regarding the EENT system. Derm: Skin is intact, Skin temperature is warm. Musculoskeletal: Capillary refill < 3 seconds, Range of motion: limited in left arm and left leg. 23:29 Reassessment: Patient appears in no apparent distress at this time. No changes from rr5 previously documented assessment. Patient and/or family updated on plan of care and expected duration. Pain level reassessed. Patient is alert, oriented x 3, equal unlabored respirations, skin warm/dry/pink. 03/22 00:30 Reassessment: Patient appears in no apparent distress at this time. No changes from rr5 previously documented assessment. Patient and/or family updated on plan of care and expected duration. Pain level reassessed. Patient is alert, oriented x 3, equal unlabored respirations, skin warm/dry/pink. chatting with his day treatment clinician/art therapist no complaints made. 01:35 Reassessment: Patient appears in no apparent distress at this time. Patient is alert, rr5 oriented x 3, equal unlabored respirations, skin warm/dry/pink. repeat troponin extracted and sent to laboratory. 02:20 Reassessment: Patient appears in no apparent distress at this time. No changes from rr5 previously documented assessment. 03:03 Reassessment: Patient appears in no apparent distress at this time. Patient is alert, rr5 oriented x 3, equal unlabored respirations, skin warm/dry/pink. ED provider spoke to patient patient agreed for the plan of care. 03:22 Reassessment: Patient appears in no apparent distress at this time. Patient is alert, rr5 oriented x 3, equal unlabored respirations, skin warm/dry/pink. discharge instruction given and explained without complaints made, verbalized understanding. Patient states feeling better. Patient states symptoms have improved. Vital Signs: 03/21 22:35 BP 112 / 58; Pulse 87; Resp 17; Temp 99; Pulse Ox 97% ; Weight 90.72 kg; Height 6 ft. rr5 (182.88 cm); Pain 0/10; 23:29 BP 92 / 42; Pulse 84; Resp 15; Pulse Ox 98% on R/A; rr5 13 00:08 BP 100 / 46; Pulse 87; Resp 19; Pulse Ox 98% on R/A; rr5 01:00 BP 115 / 79; Pulse 85; Resp 16; Pulse Ox 100% ; rr5 01:46 BP 121 / 67; Pulse 90; Resp 14; Pulse Ox 98% ; Pain 0/10; rr5 03:00 BP 97 / 41; Pulse 93; Resp 16; Pulse Ox 97% ; rr5 03:23 BP 105 / 62; Pulse 88; Resp 16; Temp 99.2; Pulse Ox 99% ; Pain 0/10; rr5 03/21 22:35 Body Mass Index 27.12 (90.72 kg, 182.88 cm) rr5 ED Course: 03/21 22:33 Patient arrived in ED. bb 22:33 Carlos Carpenter, CHRISTOPHE is Primary Nurse. rr5 22:38 Triage completed. rr5 22:38 Gabriel Booth MD is Attending Physician. gs 22:43 Arm band placed on. rr5 22:49 Patient has correct armband on for positive identification. Bed in low position. Call rr5 light in reach. Side rails up X2. nurse monitoring on. Pulse ox on. NIBP on. 23:25 Inserted saline lock: 22 gauge in right forearm, using aseptic technique. Blood rr5 collected. 23:25 EKG done, by ED staff, reviewed by Gabriel Booth MD. rr5 23:40 X-ray completed. Portable x-ray completed in exam room. Patient tolerated procedure mh1 well. 23:41 XRAY Chest (1 view) In Process Unspecified. EDVT 03/22 01:35 Repeat lab(s) drawn. by hi, sent to lab. rr5 03:24 No provider procedures requiring assistance completed. IV discontinued, intact, rr5 bleeding controlled, No redness/swelling at site. Pressure dressing applied. Administered Medications: No medications were administered Outcome: 03:10 Discharge ordered by . 03:24 Discharged to home via wheelchair, with family. rr5 03:24 Condition: stable 03:24 Discharge instructions given to patient, Instructed on discharge instructions, follow up and referral plans. Demonstrated understanding of instructions, follow-up care. 03:24 Patient left the ED. rr5 Signatures: Dispatcher [employer] EDVT [facility] Stefany Luis, RN RN Gabriel Booth MD MD Carlos Carpenter RN RN rr5 Corrections: (The following items were deleted from the chart) 03:11 03:03 Reassessment: Patient appears in no apparent distress at this time. Patient is rr5 alert, oriented x 3, equal unlabored respirations, skin warm/dry/pink. ED provider spoke to patient and advised for admission. patient agreed for the plan of care. rr5
[2019-03-22 03:38] VITALS: BP 105/62; TEMP 99.2; O2SAT 99
--- NOTE | 2019-03-22 08:14 | RAD REPORT ---
EXAM DESCRIPTION: RAD - Chest Single View - 03/21/2019 11:41 pm CLINICAL HISTORY: Shortness of breath, history of recent right-sided intracranial hemorrhage COMPARISON: March 15 TECHNIQUE: AP portable chest image was obtained 2335 hours . FINDINGS: No focal mass or consolidation. Heart size is normal, much smaller than March 15 imaging. Central vasculature is mildly prominent. Interstitial markings are mildly prominent. Left-sided dial ysis catheter is in place. Heart and vasculature are normal. No measurable pleural effusion and no pn eumothorax. No acute bony abnormality seen. No acute aortic findings suspected. IMPRESSION: No focal lung parenchymal process seen. Central vasculature and lung markings are minimally prominent. No significant failure or volume overl oad. Chest findings are improved from March 15.
--- NOTE | 2019-03-22 13:04 | EKG ---
Test Date: 2019-03-21 Test Time: 23:18:07 X Ray Operator: RR MEASUREMENT RESULTS: Intervals: Rate: 84 HI: 136 QRSD: 92 QT: 408 QTc: 482 [place]: P: 68 HI: 136 QRS: 9 T: 104 INTERPRETIVE STATEMENTS: Normal sinus rhythm ST & T wave abnormality, consider lateral ischemia Prolonged QT Abnormal ECG Compared to ECG 03/15/2019 15:50:52 ST (T wave) deviation now present Prolonged QT interval now present Sinus tachycardia no longer present Ventricular premature complex(es) no longer present T-wave abnormality no longer present Possible ischemia still present Electronically Signed On 03-22-19 13:03:23 CDT by Loki Mitchell
== END 2019-03-22 03:24 | disposition home or self-care (01) ==
LOC: ER 22:29
DX: R06.00 Dyspnea, unspecified (principal); I10 Essential (primary) hypertension
CPT/HCPCS: 36415; 71045; 80048; 80076; 83735; 83880; 84484; 85025; 85610; 93005; 99284

== ENCOUNTER 2019-04-14 21:51 | Emergency (ER) | payer OTHER ==
[2019-04-14] MEDS ORDERED: MUPIROCIN 2% OINT 22GM TUBE TOP ONE (23:12)
--- NOTE | 2019-04-14 23:24 | EDPHYS ---
Physician Documentation [facility] Name: Jermaine Rivera Age: 44 yrs Sex: Male : 1975 Arrival Date: 04/14/2019 Time: 22:03 Bed 17 Private MD: ED Physician Kumar Kimbrough HPI: 04/14 22:50 This 44 yrs old Black Male presents to ER via Wheelchair with complaints of Arm snw swelling, Eye Problem. 22:50 Onset: The symptoms/episode began/occurred suddenly. Associated signs and symptoms: The snw patient has no apparent associated signs or symptoms. 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 The patient has not experienced similar symptoms in the past. started PT s/p CVA, using left arm/elbow with increased frequency. Historical: - Allergies: 22:15 No Known Allergies; lp1 - Home Meds: 22:15 hydralazine 100 mg Oral tab 1 tab 3 times per day [Active]; metoprolol tartrate 50 mg lp1 Oral tab 2 tabs 2 times per day [Active]; nifedipine 90 mg Oral cpER 1 tab twice a day [Active]; terazosin 5 mg Oral cap 2 caps twice a day [Active]; Renagel Oral [Active]; Crystal-Angie Oral [Active]; - PMHx: 22:15 Brain bleed; Dialysis; Hypertension; Renal Disease; CVA; lp1 - PSHx: 22:15 None; lp1 - Immunization history:: Adult Immunizations up to date. - Social history:: Smoking status: Patient/guardian denies using tobacco. - Ebola Screening: : No symptoms or risks identified at this time. ROS: 22:49 Constitutional: Negative for fever, chills, and weight loss, ENT: Negative for injury, snw pain, and discharge, Neck: Negative for injury, pain, and swelling, Cardiovascular: Negative for chest pain, palpitations, and edema, Respiratory: Negative for shortness of breath, cough, wheezing, and pleuritic chest pain, Abdomen/GI: Negative for abdominal pain, nausea, vomiting, diarrhea, and constipation, Back: Negative for injury and pain, : Negative for injury, bleeding, discharge, and swelling, Skin: Negative for injury, rash, and discoloration, Neuro: Negative for headache, weakness, numbness, tingling, and seizure, Psych: Negative for depression, anxiety, suicide ideation, homicidal ideation, and hallucinations. 22:49 Eyes: Positive for blood red area in left medial eye, no pain, no visual changes. 22:49 MS/extremity: Positive for swelling, tenderness, of the left elbow. Exam: 22:41 Constitutional: This is a well developed, well nourished patient who is awake, alert, snw and in no acute distress. Head/Face: Normocephalic, atraumatic. Eyes: Pupils equal round and reactive to light, extra-ocular motions intact. Lids and lashes normal. Conjunctiva and sclera are non-icteric and not injected. Subconjunctival hemorrhage in medial aspect of left eye. Cornea within normal limits. Periorbital areas with no swelling, redness, or edema. ENT: Nares patent. No nasal discharge, no septal abnormalities noted. Tympanic membranes are normal and external auditory canals are clear. Oropharynx with no redness, swelling, or masses, exudates, or evidence of obstruction, uvula midline. Mucous membranes moist. Neck: Trachea midline, no thyromegaly or masses palpated, and no cervical lymphadenopathy. Supple, full range of motion without nuchal rigidity, or vertebral point tenderness. No Meningismus. Chest/axilla: Normal chest wall appearance and motion. Nontender with no deformity. No lesions are appreciated. Cardiovascular: Regular rate and rhythm with a normal S1 and S2. No gallops or rubs. + murmur. Normal PMI, no JVD. No pulse deficits. Respiratory: Lungs have equal breath sounds bilaterally, clear to auscultation and percussion. No rales, rhonchi or wheezes noted. No increased work of breathing, no retractions or nasal flaring. Abdomen/GI: Soft, non-tender, with normal bowel sounds. No distension or tympany. No guarding or rebound. No evidence of tenderness throughout. Back: No spinal tenderness. No costovertebral tenderness. Full range of motion. Neuro: Awake and alert, GCS 15, oriented to person, place, time, and situation. Cranial nerves II-XII grossly intact. Motor strength 5/5 in all extremities. Sensory grossly intact. Cerebellar exam normal. Normal gait. Psych: Awake, alert, with orientation to person, place and time. Behavior, mood, and affect are within normal limits. 22:41 Skin: Appearance: normal except for affected area, lesion(s), noted, and can be described as erythematous, ruptured pustule with mild scabbing, no surrounding erythema, at lateral elbow, FROM to bilateral elbows. Left posterior elbow with some edema, minimal increase in warmth to left. . Vital Signs: 22:12 BP 136 / 77; Pulse 74; Resp 18; Temp 98.3(O); Pulse Ox 98% on R/A; Weight 86.18 kg; lp1 Height 6 ft. 1 in. (185.42 cm); Pain 2/10; 23:45 BP 132 / 81; Pulse 76; Resp 18; Pulse Ox 99% on R/A; wh 22:12 Body Mass Index 25.07 (86.18 kg, 185.42 cm) lp1 MDM: 22:36 Patient medically screened. snw 23:24 Data reviewed: vital signs, nurses notes. Data interpreted: Pulse oximetry: on room air snw is 98 %. Interpretation: normal. Counseling: I had a detailed discussion with the patient and/or guardian regarding: the historical points, exam findings, and any diagnostic results supporting the discharge/admit diagnosis, radiology results, the need for outpatient follow up, to return to the emergency department if symptoms worsen or persist or if there are any questions or concerns that arise at home. Special discussion: Based on the history and exam findings, there is no indication for further emergent testing or inpatient evaluation. I discussed with the patient/guardian the need to see the orthopedic surgeon for further evaluation of the symptoms. I discussed with the patient/guardian the need to see the primary care provider for further evaluation of the symptoms. 04/14 22:48 Order name: US Extremity Venous Unilateral Ltd snw 04/14 23:22 Order name: Shalom; Complete Time: 23:35 snw Administered Medications: 23:23 Drug: Bactroban Ointment 2 % 1 application Route: Topical; Site: affected area; wh 23:40 Drug: [place] 5 mg-325 mg 1 tabs Route: PO; wh 23:57 Follow up: Response: No adverse reaction; Pain is decreased; RASS: Alert and Calm (0) wh Disposition: 04/15 00:46 Co-signature as Attending Physician, Kumar Kimbrough MD. rn Disposition: 04/14/19 23:23 Discharged to Home. Impression: Other bursitis of elbow, left elbow, Subconjunctival hemorrhage. - Condition is Stable. - Discharge Instructions: Bursitis, Repetitive Strain Injuries, Subconjunctival Hemorrhage, Heat Therapy. - Prescriptions for Bactroban 2 % Topical Ointment - apply 1 application by INTRANASAL route every 12 hours for 5 days; 15 gram. - Medication Reconciliation Form, Thank You Letter, Antibiotic Education, Prescription Opioid Use form. - Follow up: Emergency Department; When: As needed; Reason: Worsening of condition. Signatures: Dispatcher [employer] EDMS Mckenzie Boyer, FARHEEN-C UNISHEAR OPERATOR-Csnw Kumar Kimbrough MD MD rn Pena, Laura, RN RN lp1 Giuseppe Favainsusan Corrections: (The following items were deleted from the chart) 04/14 23:58 23:23 04/14/2019 23:23 Discharged to Home. Impression: Other bursitis of elbow, left wh elbow; Subconjunctival hemorrhage. Condition is Stable. Forms are Medication Reconciliation Form, Thank You Letter, Antibiotic Education, Prescription Opioid Use. Follow up: Emergency Department; When: As needed; Reason: Worsening of condition. snw
--- NOTE | 2019-04-14 23:24 | ER ---
Nurse's Notes [facility] Name: Jermaine Rivera Age: 44 yrs Sex: Male : 1975 Arrival Date: 04/14/2019 Time: 22:03 Bed 17 Private MD: Diagnosis: Other bursitis of elbow, left elbow;Subconjunctival hemorrhage Presentation: 04/14 22:13 Presenting complaint: Patient states: redness to left eye that he noticed this morning; lp1 Swelling to left elbow that began yesterday; Denies any fever at home. Transition of care: patient was not received from another setting of care. Onset of symptoms was April 14, 2019. Risk Assessment: Do you want to hurt yourself or someone else? Patient reports no desire to harm self or others. Initial Sepsis Screen: Does the patient meet any 2 criteria? No. Patient's initial sepsis screen is negative. Does the patient have a suspected source of infection? No. Patient's initial sepsis screen is negative. Care prior to arrival: None. 22:13 Method Of Arrival: Wheelchair lp1 22:13 Acuity: FERNANDA 3 lp1 Historical: - Allergies: 22:15 No Known Allergies; lp1 - Home Meds: 22:15 hydralazine 100 mg Oral tab 1 tab 3 times per day [Active]; metoprolol tartrate 50 mg lp1 Oral tab 2 tabs 2 times per day [Active]; nifedipine 90 mg Oral cpER 1 tab twice a day [Active]; terazosin 5 mg Oral cap 2 caps twice a day [Active]; Renagel Oral [Active]; Crystal-Angie Oral [Active]; - PMHx: 22:15 Brain bleed; Dialysis; Hypertension; Renal Disease; CVA; lp1 - PSHx: 22:15 None; lp1 - Immunization history:: Adult Immunizations up to date. - Social history:: Smoking status: Patient/guardian denies using tobacco. - Ebola Screening: : No symptoms or risks identified at this time. Screenin:16 Abuse screen: Denies threats or abuse. Denies injuries from another. Nutritional lp1 screening: No deficits noted. Tuberculosis screening: No symptoms or risk factors identified. 22:30 Fall Risk None identified. wh Assessment: 22:30 General: Appears in no apparent distress. Behavior is calm, cooperative, appropriate wh for age. Pain: Complains of pain in left elbow Pain does not radiate. Pain currently is 6 out of 10 on a pain scale. Quality of pain is described as aching, Pain began gradually. Neuro: Level of Consciousness is awake, alert, obeys commands, Oriented to person, place, time, situation, Appropriate for age. Cardiovascular: Capillary refill < 3 seconds Dialysis shunt: Left Upper Chest wall. Respiratory: Airway is patent Respiratory effort is even, unlabored, Respiratory pattern is regular, symmetrical. GI: Abdomen is flat, non-distended. : No signs and/or symptoms were reported regarding the genitourinary system. EENT: No signs and/or symptoms were reported regarding the EENT system. Derm: Skin is intact, is healthy with good turgor, Skin is pink, warm \T\ dry. normal. Musculoskeletal: Circulation, motion, and sensation intact. Hx of Stroke with some weakness. 23:50 Reassessment: Patient appears in no apparent distress at this time. No changes from previously documented assessment. Patient and/or family updated on plan of care and expected duration. Pain level reassessed. Patient is alert, oriented x 3, equal unlabored respirations, skin warm/dry/pink. Patient states feeling better. Patient states symptoms have improved. Vital Signs: 22:12 BP 136 / 77; Pulse 74; Resp 18; Temp 98.3(O); Pulse Ox 98% on R/A; Weight 86.18 kg; lp1 Height 6 ft. 1 in. (185.42 cm); Pain 2/10; 23:45 BP 132 / 81; Pulse 76; Resp 18; Pulse Ox 99% on R/A; wh 22:12 Body Mass Index 25.07 (86.18 kg, 185.42 cm) lp1 ED Course: 22:03 Patient arrived in ED. cf2 22:14 Triage completed. lp1 22:16 Arm band placed on right wrist. lp1 22:17 Andreia Chin is Primary Nurse. wh 22:30 Patient has correct armband on for positive identification. Bed in low position. Call light in reach. Side rails up X 1. Pulse ox on. NIBP on. 22:35 Mckenzie Boyer FNP-C is PHCP. snw 22:35 Kumra Kimbrough MD is Attending Physician. snw 23:28 Extremity Venous Unilateral Ltd In Process Unspecified. EDMS 23:48 No provider procedures requiring assistance completed. Patient did not have IV access during this emergency room visit. Administered Medications: 23:23 Drug: Bactroban Ointment 2 % 1 application Route: Topical; Site: affected area; 23:40 Drug: [place] 5 mg-325 mg 1 tabs Route: PO; 23:57 Follow up: Response: No adverse reaction; Pain is decreased; RASS: Alert and Calm (0) Outcome: 23:23 Discharge ordered by . snw 23:48 Discharged to home via wheelchair, with family. 23:48 Condition: stable 23:48 Discharge instructions given to patient, family, Instructed on discharge instructions, follow up and referral plans. medication usage, POC Bursitis Demonstrated understanding of instructions, follow-up care, medications, POC Prescriptions given X 1. 23:58 Patient left the ED. Signatures: Dispatcher [employer] EDMS Mckenzie Boyer, LINEN SORTER-C LINEN SORTER-Csnw Ara Colindres, RN RN lp1 Andreia Chin Najma Green cf2
[2019-04-14] MEDS ORDERED: HYDROCODONE/APAP 5/325 MG TAB ONE (23:29)
[2019-04-15 02:20] VITALS: TEMP 98.3
[2019-04-15 02:21] VITALS: BP 132/81; O2SAT 99
--- NOTE | 2019-04-15 07:08 | RAD REPORT ---
EXAM DESCRIPTION: US - Extremity Venous Uni Ltd - 04/14/2019 11:28 pm CLINICAL HISTORY: Left arm pain and swelling COMPARISON: None. TECHNIQUE: Real-time sonographic evaluation of the left upper extremity deep venous systems was perf ormed. FINDINGS: Normal compressibility, flow augmentation, phasic flow and spontaneous flow are identified in the left upper extremity deep venous system. No intraluminal filling defects seen. Internal jugul ar and subclavian veins are normal as well. IMPRESSION: No DVT in the left upper extremity.
--- OUTSIDE RECORDS SUMMARY | 2019-04-20 00:12 | XMS REPORT ---
:1975 [facility] [address] [place] [address] Care Team Providers Name Role Phone RIVKA PATIÑO Unavailable Unavailable Problems This patient has no known problems. Allergies, Adverse Reactions, Alerts This patient has no known allergies or adverse reactions. Medications This patient has no known medications. Encounters Start End Encounter Admission Attending Care Care Encounter Date/Time Date/Time Type Type Clinicians Facility Department ID 2019-03-15 Inpatient [facility]UL [id number] 17:40:00 Results Test Description Test Time Test Comments Text Results Atomic Results Result Comments ANG, TUNNELED CATHETER 2019-02-03 10:49:00 FINAL REPORT PATIENT ID: INSERTION [id number] TUNNELED DIALYSIS CATHETER PLACEMENT, UNDER FLUOROSCOPY History provided: Renal failure PROCEDURE: Informed consent was obtained. Patient's medication list was reviewed. Timeout procedure was performed. All elements of strict sterile barrier were employed, including cap, mask, sterile gloves, and sterile drape. Moderate conscious sedation was achieved utilizing two mg IV Versed and 150 ug IV Fentanyl while continuously monitoring cardiorespiratory function. The patient was monitored by the radiology nurse. Sedation time was 30 minutes. Ultrasound evaluation of potential access sites was performed. Sterile ultrasound techniques were employed, including sterile gel and sterile probe cover. 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 After successfully identifying a patent left internal jugular vein , real-time ultrasound guidance was used to puncture the vessel. A permanent recording was created for the patient's record. Over a guidewire, a large peel-away sheath was placed. A 23 cm tip to cuff Duraflow catheter was tunneled from a left anterior chest wall approach and brought out adjacent to the peel-away sheath. The catheter was inserted down the peel-away sheath, which was then removed. Both ports were packed with heparin. Skin puncture site was closed with two 2-0 silk sutures. Catheter secured at the exit site with a single 2-0 proline suture. Sterile dressing applied. Spot film performed for documentation. Catheter is ready for immediate use. Fluoroscopy time: 0.5 minutes Radiation dose (Ka,r): 10 mGy Signed: Riky Boone MDReport Verified Date/Time: 02/03/2019 10:49:11 Reading Location: [facility] [id number] Angio Body Reading Room REHENSIVE METABOLIC PANEL 2019-02-03 07:04:00 Test Item Value Reference Range Comments TOTAL PROTEIN (BEAKER) (test 6.4 gm/dL 6.0-8.3 vwcb=769) ALBUMIN (BEAKER) (test 3.6 g/dL 3.5-5.0 bsrk=5005) ALKALINE PHOSPHATASE (BEAKER) 50 U/L 40-150 (test ruzy=491) BILIRUBIN TOTAL (BEAKER) 0.4 mg/dL 0.2-1.2 (test qhiz=220) SODIUM (BEAKER) (test 136 meq/L 136-145 lxuk=522) POTASSIUM (BEAKER) (test 5.0 meq/L 3.5-5.1 amqb=245) CHLORIDE (BEAKER) (test 104 meq/L 98-107 wlmv=557) CO2 (BEAKER) (test dgce=388) 19 meq/L 22-29 BLOOD UREA NITROGEN (BEAKER) 97 mg/dL 7-21 (test ljhg=283) CREATININE (BEAKER) (test 25.95 mg/dL 0.57-1.25 ixrp=470) GLUCOSE RANDOM (BEAKER) (test 115 mg/dL 70-105 inip=859) CALCIUM (BEAKER) (test 8.6 mg/dL 8.4-10.2 aqts=486) AST (SGOT) (BEAKER) (test 9 U/L 5-34 cker=595) ALT (SGPT) (BEAKER) (test < U/L 6-55 jpet=111) EGFR (BEAKER) (test 2 mL/min/1.73 sq m ESTIMATED GFR IS NOT bsaw=4115) ACCURATE CREATININE CLEARANCE IN PREDICTING GLOMERULAR FILTRATION RATE. ESTIMATED GFR IS NOT APPLICABLE FOR DIALYSIS PATIENTS. CBC (HEMOGRAM ONLY)2019-02-03 06:04:00 Test Item Value Reference Range Comments WHITE BLOOD CELL COUNT (BEAKER) (test yykl=611) 3.7 K/ L 3.5-10.5 RED BLOOD CELL COUNT (BEAKER) (test nkpa=014) 2.81 M/ L 4.63-6.08 HEMOGLOBIN (BEAKER) (test dnia=341) 8.3 GM/DL 13.7-17.5 HEMATOCRIT (BEAKER) (test ccgd=406) 25.5 % 40.1-51.0 MEAN CORPUSCULAR VOLUME (BEAKER) (test gpmt=904) 90.7 fL 79.0-92.2 MEAN CORPUSCULAR HEMOGLOBIN (BEAKER) (test 29.5 pg 25.7-32.2 wsjc=918) MEAN CORPUSCULAR HEMOGLOBIN CONC (BEAKER) (test 32.5 GM/DL 32.3-36.5 ozbo=693) RED CELL DISTRIBUTION WIDTH (BEAKER) (test 14.8 % 11.6-14.4 lkmw=348) PLATELET COUNT (BEAKER) (test cjdv=390) 150 K/CU MM 150-450 MEAN PLATELET VOLUME (BEAKER) (test rxrv=940) 10.2 fL 9.4-12.4 NUCLEATED RED BLOOD CELLS (BEAKER) (test 0 /100 WBC 0-0 amjw=101) HEPATITIS B SURFACE [id number] 01:25:00 Test Item Value Reference Range Comments HEPATITIS B SURFACE ANTIGEN (2) (BEAKER) (test Nonreactive Nonreactive qoet=9179) BASIC METABOLIC [id number] 01:10:00 Test Item Value Reference Range Comments SODIUM (BEAKER) (test 136 meq/L 136-145 yofa=543) POTASSIUM (BEAKER) (test 5.4 meq/L 3.5-5.1 tcjq=897) CHLORIDE (BEAKER) (test 105 meq/L 98-107 hspd=713) CO2 (BEAKER) (test 17 meq/L 22-29 tweg=553) BLOOD UREA NITROGEN 100 mg/dL 7-21 (BEAKER) (test dvfy=414) CREATININE (BEAKER) (test 26.64 mg/dL 0.57-1.25 cikx=127) GLUCOSE RANDOM (BEAKER) 69 mg/dL 70-105 (test gzop=755) CALCIUM (BEAKER) (test 8.8 mg/dL 8.4-10.2 yovi=060) EGFR (BEAKER) (test 2 mL/min/1.73 sq m ESTIMATED GFR IS NOT zfzm=0640) ACCURATE CREATININE CLEARANCE IN PREDICTING GLOMERULAR FILTRATION RATE. ESTIMATED GFR IS NOT APPLICABLE FOR DIALYSIS PATIENTS. [id number] 01:03:00 Test Item Value Reference Range Comments POTASSIUM (BEAKER) (test ivoe=049) 5.4 meq/L 3.5-5.1 PROTHROMBIN TIME/[id number] 01:01:00 Test Item Value Reference Range Comments PROTIME (BEAKER) (test nlba=933) 14.1 seconds 11.9-14.2 INR (BEAKER) (test esac=665) 1.1 <=5.9 Effective 11/05/2018: PT Reference Range ChangeNew: 11.9-14.2 Previous: 11.7- 14.7RECOMMENDED COUMADIN/WARFARIN INR THERAPY RANGESSTANDARD DOSE: 2.0-3.0 Includes: PROPHYLAXIS for venous thrombosis, systemic embolization; TREATMENT for venous thrombosis and/or pulmonary embolus.HIGH RISK: Target INR is2.5-3.5 for patients wiht mechanical heart valves.BASIC METABOLIC [id number] 19:02: 00 Test Item Value Reference Range Comments SODIUM (BEAKER) (test 137 meq/L 136-145 qisv=137) POTASSIUM (BEAKER) (test 6.1 meq/L 3.5-5.1 sogj=658) CHLORIDE (BEAKER) (test 104 meq/L 98-107 sokc=223) CO2 (BEAKER) (test 18 meq/L 22-29 vcjm=450) BLOOD UREA NITROGEN 97 mg/dL 7-21 (BEAKER) (test apyu=784) CREATININE (BEAKER) (test 26.82 mg/dL 0.57-1.25 lcjc=974) GLUCOSE RANDOM (BEAKER) 120 mg/dL 70-105 (test ogsb=466) CALCIUM (BEAKER) (test 9.0 mg/dL 8.4-10.2 appv=601) EGFR (BEAKER) (test 2 mL/min/1.73 sq m ESTIMATED GFR IS NOT dhkj=9288) ACCURATE CREATININE CLEARANCE IN PREDICTING GLOMERULAR FILTRATION RATE. ESTIMATED GFR IS NOT APPLICABLE FOR DIALYSIS PATIENTS.
== END 2019-04-14 23:58 | disposition home or self-care (01) ==
LOC: ER 21:51
DX: M71.522 Other bursitis, not elsewhere classified, left elbow (principal); H11.32 Conjunctival hemorrhage, left eye; I12.0 Hypertensive chronic kidney disease with stage 5 chronic kidney disease or end stage renal disease; N18.6 End stage renal disease; Z99.2 Dependence on renal dialysis; Z86.73 Personal history of transient ischemic attack (TIA), and cerebral infarction without residual deficits
CPT/HCPCS: 93971; 99284

== ENCOUNTER 2020-09-12 21:25 | Emergency (ER) | payer OTHER ==
--- OUTSIDE RECORDS SUMMARY | 2020-09-12 21:28 | XMS REPORT | Continuity of Care Document ---
:1975 Author Organization [facility] t Address [address] [place] [address] Care Team Providers Name Role Phone Pcp Primary Care Physician Unavailable Jona King Attending Clinician Faculty, Surg Attending Clinician Unavailable Andrés FAYE Attending Clinician Joceline RN, P Attending Clinician Unavailable Burns Attending Clinician Unavailable RACHEL PATIÑO Attending Clinician Unavailable RACHEL PATIÑO Admitting Clinician Unavailable Payers Payer Name Policy Type Policy Effective Date Expiration Date Sour ce Number MEDICAID - [id number] 2018 [facility] MEDICAID MGD 00:00:00 - Medical CARED [facility]LY [facility] Center STAR [id number] /2018-PresentMedi caid Contracted Problems Condition Condition Condition Status Onset Resolution Last Treating Co mments Source Name Details Category Date Date Treatment Clinician Date HYPERTENSI Diagnosis Active 2018-062019-04-02 Memoria VE THALAMI 0-06 22:34:00 l 00:00: Demond HYPERTENSI 00 VE THALAMI Active 03/15/2019 [facility] Hyperkalem Hyperkalem Disease Active 2018- [facility] 02-02 kes - 00:00: [place] [address] Center HYPERTENSI Diagnosis Active 2019-04-02 Memoria VE 22:34:00 l EMERGENCY Demond HYPERTENSI VE EMERGENCY Active [facility] Allergies, Adverse Reactions, Alerts This patient has no known allergies or adverse reactions. Social History Social Habit Start Date Stop Date Quantity Comments Source Sex [facility] At [facility] History SDOH [facility] Std Drinks [facility] History SDOH [facility] - Alcohol Binge Medical Eleuterio ter Tobacco use and 2019-02-18 2019-02-[address] [facility] - exposure 00:00:00 00:00:00 Medical Center Alcohol intake 2019-02-18 2019-02-[address] [facility] - 00:00:00 00:00:00 non-drinker of Medical Ce nter alcohol (finding) History [facility] 2019-02-18 2019-02-[address] [facility] - Alcohol Frequency 00:00:00 00:00:00 Medical Center Smoking Status Start Date Stop Date Source Never smoker [facility] Medications Ordered Filled Start Stop Current Ordering Indication Dosage Frequency Signature Comments Components Source Medication Medication Date Date Medication? Clinician (SIG) Name Name calcitriol 2018- Yes .5ug QD Take 0.[address] [facility] [address] (ROCALTROL) 9-11 mcg by [facility] - 0.5 MCG 13:41: mouth Medical capsule 30 daily. Center cholecalcif Yes 5000U QD Take 5,[address] [facility] [address] dori, 9-11 Units by [facility] - vitamin D3, 13:41: mouth Medic al 5,000 unit 30 daily. Center Tab hydrALAZINE Yes 100mg [id number] Take [address] (APRESOLINE 9-11 [id number] mg by L ukes - ) 100 MG 13:41: 3D mouth 3 Medica l tablet 30 (three) Center times daily. NIFEdipine Yes 90mg Q.5D Take [address] (ADALAT CC) 9-11 by mouth 2 [facility] - 90 MG 24 hr 13:41: (two) Medic al tablet 30 times Center daily. ramipril Yes 10mg QD Take [address] (ALTACE) 10 9-11 by mouth Luke s - MG capsule 13:41: daily. Medic al 30 Center sevelamer Yes 800mg Take [address] (RENVELA) 9-11 mg by [facility]ukes - 800 mg 13:41: mouth 3 Medical tablet 30 (three) Center times daily with meals. acetaminoph 2020- No 650mg Take [address] en 02-03 08-21 tablets [facility] - (TYLENOL) 00:00: 23:59 (650 mg Medi diallo 325 MG 00 :00 total) by Center tablet mouth every 6 (six) hours as needed for up to 360 days. Procedures This patient has no known procedures. Plan of Care Planned Activity Planned Date Details Comments Source Future Scheduled 2020-02-[address] [facility] - Test 00:00:00 (#1) [code = [facility] INFLUENZA VACCINE (#1)] Future Scheduled [address] [facility] Test 00:00:00 (procedure) [code = [facility] [id number]] Encounters Start End Encounter Admission Attending Care Care Encounter Source Date/Time Date/Time Type Type Clinicians Facility Department ID 2019-03-15 Inpatient [facility] PUL [id number] [facility] W 17:40:00 2020-02-01 2020-02-01 Telephone [facility] [id number] 00:00:00 00:00:00 [facility] R SPECIALTY [id number] CARE [id number] CENTER AT [id number] [address] 2019-12-22 2019-12-22 Telephone [facility], [facility] [id number] 00:00:00 00:00:00 Vascular Y HEALTH [id number] Surg CLINICS [id number] 2019-11-19 2019-11-19 Telephone [facility] [id number] 00:00:00 00:00:00 Ted HEALTH [id number] CLINICS [id number] 2019-11-04 2019-11-04 [id number] 00:00:00 00:00:00 [facility] [id number] CLINICS [id number] Results Test Description Test Time Test Comments Results Result [facility] e Comments HANNA CARLOS 2019-02-03 FINAL REPORT PATIENT CATHETER 10:49:00 ID: [id number] TUNNELED INSERTION DIALYSIS CATHETER PLACEMENT, UNDER FLUOROSCOPY History provided: [...] minutes Radiation dose (Ka,r): 10 mGy Signed: Barby Boone MDReport Verified Date/Time: 02/03/2019 10:49:11 Reading Location: [place] [address] Angio Body Reading Room REHENSIVE METABOLIC PANEL 2019-02-03 07:04:00 Test Item Value Reference Range Interpretation Comme nts TOTAL PROTEIN (BEAKER) (test 6.4 gm/dL 6.0-8.3 code = 770) ALBUMIN (BEAKER) (test code 3.6 g/dL 3.5-5.0 = 1145) ALKALINE PHOSPHATASE 50 U/L 40-150 (BEAKER) (test code = 346) BILIRUBIN TOTAL (BEAKER) 0.4 mg/dL 0.2-1.2 (test code = 377) SODIUM (BEAKER) (test code = 136 meq/L 136-145 381) POTASSIUM (BEAKER) (test 5.0 meq/L 3.5-5.1 code = 379) CHLORIDE (BEAKER) (test code 104 meq/L 98-107 = 382) CO2 (BEAKER) (test code = 19 meq/L 22-29 L 355) BLOOD UREA NITROGEN (BEAKER) 97 mg/dL 7-21 H (test code = 354) CREATININE (BEAKER) (test 25.95 mg/dL 0.57-1.25 H code = 358) GLUCOSE RANDOM (BEAKER) 115 mg/dL 70-105 H (test code = 652) CALCIUM (BEAKER) (test code 8.6 mg/dL 8.4-10.2 = 697) AST (SGOT) (BEAKER) (test 9 U/L 5-34 code = 353) ALT (SGPT) (BEAKER) (test < U/L 6-55 L code = 347) EGFR (BEAKER) (test code = 2 mL/min/1.73 sq m ESTIMATED GFR IS NOT 1092) ACCURATE CRE ATININE CLEARANCE IN [place] EDICTING GLOMERULAR FILT RATION RATE. ESTIMATED GFR IS NOT APPLICABLE FOR DIALYSIS PATIENTS. CBC (HEMOGRAM ONLY)2019-02-03 06:04:00 Test Item Value Reference Range Interpretation Comments WHITE BLOOD CELL COUNT (BEAKER) 3.7 K/ L 3.5-10.5 (test code = 775) RED BLOOD CELL COUNT (BEAKER) 2.81 M/ L 4.63-6.08 L (test code = 761) HEMOGLOBIN (BEAKER) (test code = 8.3 GM/DL 13.7-17.5 L 410) HEMATOCRIT (BEAKER) (test code = 25.5 % 40.1-51.0 L 411) MEAN CORPUSCULAR VOLUME (BEAKER) 90.7 fL 79.0-92.2 (test code = 753) MEAN CORPUSCULAR HEMOGLOBIN 29.5 pg 25.7-32.2 (BEAKER) (test code = 751) MEAN CORPUSCULAR HEMOGLOBIN CONC 32.5 GM/DL 32.3-36.5 (BEAKER) (test code = 752) RED CELL DISTRIBUTION WIDTH 14.8 % 11.6-14.4 H (BEAKER) (test code = 412) PLATELET COUNT (BEAKER) (test 150 K/CU MM 150-450 code = 756) MEAN PLATELET VOLUME (BEAKER) 10.2 fL 9.4-12.4 (test code = 754) NUCLEATED RED BLOOD CELLS 0 /100 WBC 0-0 (BEAKER) (test code = 413) HEPATITIS B SURFACE [id number] 01:25:00 Test Item Value Reference Range Interpretation Comments HEPATITIS B SURFACE ANTIGEN (2) Nonreactive Nonreactive (BEAKER) (test code = 2585) BASIC METABOLIC [id number] 01:10:00 Test Item Value Reference Range Interpretation Comments SODIUM (BEAKER) 136 meq/L 136-145 (test code = 381) POTASSIUM (BEAKER) 5.4 meq/L 3.5-5.1 H (test code = 379) CHLORIDE (BEAKER) 105 meq/L 98-107 (test code = 382) CO2 (BEAKER) (test 17 meq/L 22-29 L code = 355) BLOOD UREA NITROGEN 100 mg/dL 7-21 H (BEAKER) (test code = 354) CREATININE (BEAKER) 26.64 mg/dL 0.57-1.25 H (test code = 358) GLUCOSE RANDOM 69 mg/dL 70-105 L (BEAKER) (test code = 652) CALCIUM (BEAKER) 8.8 mg/dL 8.4-10.2 (test code = 697) EGFR (BEAKER) (test 2 mL/min/1.73 ESTIMAT ED GFR IS code = 1092) sq m NOT ACCURATE CREATININE CLEARANCE IN PREDICTING GLOMERULAR FILTRATION RATE . ESTIMATED GFR I S NOT APPLICABLE FOR DIALYSIS PATIEN TS. [id number] 01:03:00 Test Item Value Reference Range Interpretation Comments POTASSIUM (BEAKER) (test code = 5.4 meq/L 3.5-5.1 H 379) PROTHROMBIN TIME/[id number] 01:01:00 Test Item Value Reference Range Interpretation Comments PROTIME (BEAKER) (test code = 14.1 seconds 11.9-14.2 759) INR (BEAKER) (test code = 370) 1.1 <=5.9 Effective 11/05/2018: PT Reference Range ChangeNew: 11.9-14.2 Previous: 11.7- 14.7RECOMMENDED COUMADIN/WARFARIN INR THERAPY RANGESSTANDARD DOSE: 2.0-3.0 Includes: PROPHYLAXIS for venous thrombosis, systemic embolization; TREATMENT for venous thrombosis and/or pulmonary embolus.HIGH RISK: Target INR is2.5-3.5 for patients wiht mechanical heart valves.BASIC METABOLIC [id number] 19:02:00 Test Item Value Reference Range Interpretation Comments SODIUM (BEAKER) 137 meq/L 136-145 (test code = 381) POTASSIUM (BEAKER) 6.1 meq/L 3.5-5.1 HH (test code = 379) CHLORIDE (BEAKER) 104 meq/L 98-107 (test code = 382) CO2 (BEAKER) (test 18 meq/L 22-29 L code = 355) BLOOD UREA NITROGEN 97 mg/dL 7-21 H (BEAKER) (test code = 354) CREATININE (BEAKER) 26.82 mg/dL 0.57-1.25 H (test code = 358) GLUCOSE RANDOM 120 mg/dL 70-105 H (BEAKER) (test code = 652) CALCIUM (BEAKER) 9.0 mg/dL 8.4-10.2 (test code = 697) EGFR (BEAKER) (test 2 mL/min/1.73 ESTIMAT ED GFR IS code = 1092) sq m NOT ACCURATE CREATININE CLEARANCE IN PREDICTING GLOMERULAR FILTRATION RATE . ESTIMATED GFR I S NOT APPLICABLE FOR DIALYSIS PATIEN TS.
[2020-09-13 01:02] LABS: Absolute Lymphocytes (CBC) 0.5 K/uL (0.7-4.9); Basophils % 0.7 % (0-1.3); Hematocrit 24.4 % (39.6-49.0); Lymphocytes % 7.9 % (15.3-44.8); MPV 7.2 fL (7.6-11.3); RBC Red Blood Cell Count 2.87 M/uL (4.33-5.43)
[2020-09-13 01:22] LABS: Albumin 2.9 g/dL (3.4-5.0); Bilirubin Direct 0.1 mg/dL (0-0.2); Bilirubin Total 0.4 mg/dL (0.2-1.0); Potassium 4.5 mmol/L (3.5-5.1); Protein, Total 7.1 g/dL (6.4-8.2)
[2020-09-13] MEDS ORDERED: HYDROCODONE/APAP 5/325 MG TAB ONE ×2 (01:49→06:03)
--- NOTE | 2020-09-13 05:50 | ER ---
Nurse's Notes [facility] Name: Jermaine Rivera Age: 45 yrs Sex: Male : 1975 Arrival Date: 09/12/2020 Time: 21:28 Bed 6 Private MD: Diagnosis: Left flank pain. Chronic renal disease Presentation: 09/12 21:43 Chief complaint: Patient states: Fever 100.1 today, L back pain, and entire L side of ll1 body pain for 1 day. States he thinks he has a kidney infection now. They wouldn't do his dialysis today because a of fever. Last dialysis Saturday. Coronavirus screen: Client denies travel out of the [place] in the last 14 days. At this time, the client does not indicate any symptoms associated with coronavirus-19. Ebola Screen: Patient denies travel to an Ebola-affected area in the 21 days before illness onset. Initial Sepsis Screen: Does the patient meet any 2 criteria? No. Patient's initial sepsis screen is negative. Does the patient have a suspected source of infection? Yes: Dysuria/Frequency/Urgency/UTI. Risk Assessment: Do you want to hurt yourself or someone else? Patient reports no desire to harm self or others. Onset of symptoms was September 12, 2020. 21:43 Method Of Arrival: Wheelchair ll1 21:43 Acuity: FERNANDA 3 ll1 Historical: - Allergies: 21:48 No Known Allergies; ll1 - PMHx: 21:48 Brain bleed; CVA; Dialysis; Hypertension; Renal Disease; ll1 - PSHx: 21:48 None; ll1 - Immunization history:: Flu vaccine is up to date. - Social history:: Smoking status: Patient denies any tobacco usage or history of. Screenin/06 00:26 Abuse screen: Denies threats or abuse. Denies injuries from another. Nutritional mg2 screening: No deficits noted. Tuberculosis screening: No symptoms or risk factors identified. Fall Risk IV access (20 points). Assessment: 00:27 General: Appears in no apparent distress. comfortable, Behavior is calm, cooperative. mg2 Pain: Complains of pain in back. Neuro: Level of Consciousness is awake, alert, obeys commands, Oriented to person, place, time, situation. Cardiovascular: Capillary refill < 3 seconds Patient's skin is warm and dry. Respiratory: Airway is patent Respiratory effort is even, unlabored, Respiratory pattern is regular, symmetrical. GI: No signs and/or symptoms were reported involving the gastrointestinal system. : Reports pain flank(s). EENT: No signs and/or symptoms were reported regarding the EENT system. Derm: Skin is intact, is healthy with good turgor, Skin is pink, warm \T\ dry. normal. Musculoskeletal: Circulation, motion, and sensation intact. Capillary refill < 3 seconds. 01:30 Reassessment: Patient appears in no apparent distress at this time. Patient and/or jb4 family updated on plan of care and expected duration. Pain level reassessed. Patient is alert, oriented x 3, equal unlabored respirations, skin warm/dry/pink. 03:00 Reassessment: Patient appears in no apparent distress at this time. Patient and/or jb4 family updated on plan of care and expected duration. Pain level reassessed. Patient is alert, oriented x 3, equal unlabored respirations, skin warm/dry/pink. Patient denies pain at this time. 04:00 Reassessment: Patient appears in no apparent distress at this time. Patient and/or jb4 family updated on plan of care and expected duration. Pain level reassessed. Patient is alert, oriented x 3, equal unlabored respirations, skin warm/dry/pink. 05:56 Reassessment: Patient appears in no apparent distress at this time. Patient and/or mg2 family updated on plan of care and expected duration. Pain level reassessed. Vital Signs: 09/12 21:43 BP 134 / 86; Pulse 86; Resp 17; Temp 98.3; Pulse Ox 98% ; Weight 89.36 kg; Height 5 ft. ll1 11 in. (180.34 cm); Pain 6/10; 09/13 02:00 BP 174 / 113; Pulse 93; Resp 18; Pulse Ox 100% ; jb4 03:31 BP 169 / 119; Pulse 89; Resp 16; Pulse Ox 95% on R/A; jb4 05:36 BP 178 / 119; Pulse 80; Resp 18; Pulse Ox 95% on R/A; mg2 09/12 21:43 Body Mass Index 27.48 (89.36 kg, 180.34 cm) ll1 ED Course: 09/12 21:28 Patient arrived in ED. cf2 21:47 Triage completed. ll1 21:48 Arm band placed on. ll1 04 00:23 Chidi Wei, RN is Primary Nurse. mg2 00:26 No provider procedures requiring assistance completed. mg2 00:27 Patient has correct armband on for positive identification. mg2 00:49 Inserted saline lock: 20 gauge in right forearm, using aseptic technique. Blood mg2 collected. 01:01 Primary Nurse role handed off by Chidi Wei RN jb4 01:01 Michael Edge, RN is Primary Nurse. jb4 01:06 Odilon Burgess MD is Attending Physician. pkl 01:12 Notified ED physician of a critical lab result(s). HGB of 7.9 Dr Burgess notified. bb 01:23 Notified ED physician of a critical lab result(s). creatinine of 16.4 Dr Burgess notified. bb 02:40 CT Abd/Pelvis - Without Contrast In Process Unspecified. EDMS 04:00 Door closed. mg2 05:56 IV discontinued, intact, bleeding controlled, No redness/swelling at site. Pressure mg2 dressing applied. Administered Medications: 01:15 Drug: HYDROcodone-acetaminophen 5 mg-325 mg 1 tabs Route: PO; jb4 05:47 Drug: [place] (HYDROcodone-acetaminophen) 5 mg-325 mg 1 tabs Route: PO; mg2 Outcome: 05:50 Discharge ordered by . pkl 05:56 Discharged to home via wheelchair. mg2 05:56 Condition: good 05:56 Discharge instructions given to patient, Instructed on discharge instructions, follow up and referral plans. medication usage, Demonstrated understanding of instructions, follow-up care, medications. 05:57 Patient left the ED. mg2 Signatures: Dispatcher [employer] EDMS Odilon Burgess MD MD pkStefany Blackwell RN RN bb Michael Edge, RN RN jb4 Chidi Wei, CHRISTOPHE RN mg2 Najma Green cf2 Hipolito Laura RN RN ll1 Corrections: (The following items were deleted from the chart) 02:15 01:30 BP 174 / 113; Pulse 93bpm; Resp 18bpm; Pulse Ox 100%; jb4 jb4
--- NOTE | 2020-09-13 05:50 | EDPHYS ---
Physician Documentation [facility] Name: Jermaine Rivera Age: 45 yrs Sex: Male : 1975 Arrival Date: 09/12/2020 Time: 21:28 Bed 6 Private MD: ED Physician Odilon Burgess HPI: 09/13 05:38 This 45 yrs old Black Male presents to ER via Wheelchair with complaints of Fever, Back pkl Pain. 05:38 The patient complains of pain in the left flank. The pain does not radiate. Onset: The pkl symptoms/episode began/occurred today. Associated signs and symptoms: Pertinent positives: low grade fever. 05:40 Patient has H/O Chronic renal disease and on dialysis. pkl Historical: - Allergies: 09/12 21:48 No Known Allergies; ll1 - PMHx: 21:48 Brain bleed; CVA; Dialysis; Hypertension; Renal Disease; ll1 - PSHx: 21:48 None; ll1 - Immunization history:: Flu vaccine is up to date. - Social history:: Smoking status: Patient denies any tobacco usage or history of. ROS: 09/13 05:40 Eyes: Negative for injury, pain, redness, and discharge, ENT: Negative for injury, pkl pain, and discharge, Neck: Negative for injury, pain, and swelling, Cardiovascular: Negative for chest pain, palpitations, and edema, Respiratory: Negative for shortness of breath, cough, wheezing, and pleuritic chest pain, Abdomen/GI: Negative for abdominal pain, nausea, vomiting, diarrhea, and constipation. Back: Positive for flank pain, on the left. : Negative for urinary symptoms. MS/extremity: Negative for acute changes. Skin: Negative for rash. Neuro: Negative for altered mental status. Exam: 05:40 Head/Face: Normocephalic, atraumatic. Eyes: Pupils equal round and reactive to light, pkl extra-ocular motions intact. Lids and lashes normal. Conjunctiva and sclera are non-icteric and not injected. Cornea within normal limits. Periorbital areas with no swelling, redness, or edema. ENT: Nares patent. No nasal discharge, no septal abnormalities noted. Tympanic membranes are normal and external auditory canals are clear. Oropharynx with no redness, swelling, or masses, exudates, or evidence of obstruction, uvula midline. Mucous membranes moist. Neck: Trachea midline, no thyromegaly or masses palpated, and no cervical lymphadenopathy. Supple, full range of motion without nuchal rigidity, or vertebral point tenderness. No Meningismus. Chest/axilla: Normal chest wall appearance and motion. Nontender with no deformity. No lesions are appreciated. Cardiovascular: Regular rate and rhythm with a normal S1 and S2. No gallops, murmurs, or rubs. Normal PMI, no JVD. No pulse deficits. Respiratory: Lungs have equal breath sounds bilaterally, clear to auscultation and percussion. No rales, rhonchi or wheezes noted. No increased work of breathing, no retractions or nasal flaring. Abdomen/GI: Soft, non-tender, with normal bowel sounds. No distension or tympany. No guarding or rebound. No evidence of tenderness throughout. Back: No spinal tenderness. No costovertebral tenderness. Full range of motion. Skin: Warm, dry with normal turgor. Normal color with no rashes, no lesions, and no evidence of cellulitis. MS/ Extremity: Pulses equal, no cyanosis. Neurovascular intact. Full, normal range of motion. Neuro: Awake and alert, GCS 15, oriented to person, place, time, and situation. Cranial nerves II-XII grossly intact. Motor strength 5/5 in all extremities. Sensory grossly intact. Cerebellar exam normal. Normal gait. Vital Signs: 09/12 21:43 BP 134 / 86; Pulse 86; Resp 17; Temp 98.3; Pulse Ox 98% ; Weight 89.36 kg; Height 5 ft. ll1 11 in. (180.34 cm); Pain 6/10; 09/13 02:00 BP 174 / 113; Pulse 93; Resp 18; Pulse Ox 100% ; jb4 03:31 BP 169 / 119; Pulse 89; Resp 16; Pulse Ox 95% on R/A; jb4 05:36 BP 178 / 119; Pulse 80; Resp 18; Pulse Ox 95% on R/A; mg2 09/12 21:43 Body Mass Index 27.48 (89.36 kg, 180.34 cm) ll1 MDM: 01:06 Patient medically screened. pkl 05:46 Data reviewed: vital signs, nurses notes, lab test result(s), radiologic studies, CT pkl scan. ED course: Patient feeling better. Discussed lab and CT Scan results with patient. Advised to continue dialysis today and see his Finance Controller. Patient understood instructions. 04 00:26 Order name: Basic Metabolic Panel mg2 09/13 00:26 Order name: CBC with Diff mg2 09/13 00:26 Order name: Hepatic Function; Complete Time: 05:40 mg2 09/13 00:26 Order name: Lipase; Complete Time: 05:40 mg2 09/13 00:28 Order name: Basic Metabolic Panel; Complete Time: 05:40 EDMS 04 00:28 Order name: CBC with Automated Diff; Complete Time: 01:16 EDMS 09/13 00:26 Order name: IV Saline Lock; Complete Time: 00:49 mg2 09/13 00:26 Order name: Labs collected and sent; Complete Time: 00:49 mg2 09/13 01:24 Order name: CT Abd/Pelvis - Without Contrast pkl Administered Medications: 01:15 Drug: HYDROcodone-acetaminophen 5 mg-325 mg 1 tabs Route: PO; jb4 05:47 Drug: [place] (HYDROcodone-acetaminophen) 5 mg-325 mg 1 tabs Route: PO; mg2 Disposition: 09/13/20 05:50 Discharged to Home. Impression: Left flank pain. Chronic renal disease. - Condition is Stable. - Medication Reconciliation Form, Thank You Letter, Antibiotic Education, Prescription Opioid Use form. - Follow up: Private Physician; When: Today; Reason: Re-evaluation by your physician. - Problem is new. - Symptoms have improved. Signatures: Dispatcher [employer] EDIA Odilon Burgess MD MD pkl Michael Edge RN RN jb4 Chidi Wei RN RN mg2 Hipolito Laura RN RN ll1 Corrections: (The following items were deleted from the chart) 05:57 05:50 09/13/2020 05:50 Discharged to Home. Impression: Left flank pain. Chronic renal mg2 disease. Condition is Stable. Forms are Medication Reconciliation Form, Thank You Letter, Antibiotic Education, Prescription Opioid Use. Follow up: Private Physician; When: Today; Reason: Re-evaluation by your physician. Problem is new. Symptoms have improved. pkl
[2020-09-13 06:32] VITALS: TEMP 98.3
[2020-09-13 06:35] VITALS: O2SAT 95
[2020-09-13 06:36] VITALS: BP 178/119
--- NOTE | 2020-09-13 10:35 | RAD REPORT ---
EXAM DESCRIPTION: CT - Abdomen Pelvis Wo Contrast - 09/13/2020 6:30 am CLINICAL HISTORY: Left flank pain TECHNIQUE: Contiguous axial images obtained through the abdomen and pelvis without IV contrast. Angelo nal and sagittal reformatted images were provided. This exam was performed according to our departmental dose-optimization program, which includes autom ated exposure control, adjustment of the mA and/or kV according to patient size and/or use of iterati ve reconstruction technique. COMPARISON: 09/30/2017 FINDINGS: Artifacts: Streak artifact from patient arm positioning and external leads. Lung bases: Mild mosaic attenuation of the lung bases bilaterally. The heart is enlarged. Coronary ar debora and mitral annular calcification. Liver: The liver is enlarged. Gallbladder and biliary system: The gallbladder is not definitively visualized, possibly contracted o r surgically absent. Pancreas: Grossly unremarkable Spleen: Grossly unremarkable Adrenals: Unremarkable Kidneys: Ptotic right kidney. Multiple bilateral cysts, progressed from the prior. Subtle punctate ca lcifications bilaterally which may be within the collecting system or cortical. No definite hydroneph rosis. Bowel: Moderate stool. Colonic diverticula without definite adjacent inflammatory change. No obstruct ion. No appreciable mucosal thickening. Appendix: Normal caliber appendix. No findings to suggest acute appendicitis. Urinary bladder: Decompressed Reproductive: Unremarkable as visualized Lymph nodes: Bilateral inguinal lymph nodes measuring up to 15 mm in short axis. Technically limited evaluation for lymphadenopathy within the abdomen and pelvis. Peritoneum: Small amount of free fluid within the abdomen and pelvis. No free air. Vessels: Mild atherosclerotic disease. No abdominal aortic aneurysm. Abdominal wall: Generalized body wall edema. Bones: Unremarkable IMPRESSION: 1. Technically limited study. Subtle punctate renal calcifications bilaterally which m ay be within the collecting system or cortical. No definite ureteral or bladder calculi. No definite evidence for renal obstruction. 2. Small amount of free fluid within the abdomen and pelvis. 3. Mild mosaic attenuation of the lung bases bilaterally. This can be seen in the setting of small airways disease. 4. Other findings as above. Electronically signed by: Arpit Wesley MD 09/13/2020 3:03 AM CDT Due to temporary technical issues with the PACS/Fluency reporting system, reports are being signed by the in house radiologist without review as a courtesy to ensure prompt reporting. The interpreting r adiologist is fully responsible for the content of the report.
== END 2020-09-13 05:57 | disposition home or self-care (01) ==
LOC: ER 21:25
DX: R10.9 Unspecified abdominal pain (principal); I12.0 Hypertensive chronic kidney disease with stage 5 chronic kidney disease or end stage renal disease; N18.6 End stage renal disease; Z99.2 Dependence on renal dialysis
CPT/HCPCS: 36415; 74176; 80048; 80076; 83690; 85025; 99284

== ENCOUNTER 2020-09-30 00:35 | Emergency (ER) | payer OTHER ==
--- OUTSIDE RECORDS SUMMARY | 2020-09-30 00:38 | XMS REPORT | Continuity of Care Document ---
:1975 Author Organization [facility] t Address [address] [place] [address] Care Team Providers Name Role Phone Pcp Primary Care Physician Unavailable Vesta BENJAMIN R Attending Clinician Faculty, Surg Attending Clinician Unavailable Andrés FAYE Attending Clinician Joceline RN, P Attending Clinician Unavailable RACHEL PATIÑO Attending Clinician Unavailable RACHEL PATIÑO Admitting Clinician Unavailable Payers Payer Name Policy Type Policy Effective Date Expiration Date Sour ce Number MEDICAID - [id number] 2018 [facility] MEDICAID MGD 00:00:00 - Medical CARED [facility] STAR [id number] caid Contracted Problems Condition Condition Condition Status Onset Resolution Last Treating Co mments Source Name Details Category Date Date Treatment Clinician Date Hyperkalem Hyperkalem Disease Active [facility] - [facility]00: Medical 00 Center Allergies, Adverse Reactions, Alerts This patient has no known allergies or adverse reactions. Social History Social Habit Start Date Stop Date Quantity Comments Source History SDOH [facility] - Alcohol Std Drinks Medica l Center History SDOH [facility] Gonzalo - Alcohol Binge Medical Eleuterio ter Sex Assigned At [facility] Tobacco use and 2019-02-18 2019-02-18 Never used [facility] - exposure 00:00:00 00:00:00 Medical Center Alcohol intake 2019-02-18 2019-02-[address] [facility] - 00:00:00 00:00:00 non-drinker of Medical Ce nter alcohol (finding) History SDOH 2019-02-18 2019-02-[address] [facility] - Alcohol Frequency 00:00:00 00:00:00 [facility] Center Smoking Status Start Date Stop Date Source Never smoker [facility] M ed[facility] Center Medications Ordered Filled Start Stop Current Ordering Indication Dosage Frequency Signature Comments Components Source Medication Medication Date Date Medication? Clinician (SIG) Name Name calcitriol 2019- Yes .5ug QD Take 0.[address] [facility] (ROCALTROL) 9-11 mcg by [facility] - 0.5 MCG 13:41: mouth Medical capsule 30 daily. Center cholecalcif Yes 5000U QD Take 5,[address] [facility] dori, 9-11 Units by [facility] - vitamin D3, 13:41: mouth Medic al 5,000 unit 30 daily. Center Tab hydrALAZINE Yes 100mg [id number] Take [address] (APRESOLINE 9-11 [id number] mg by L ukes - ) 100 MG 13:41: 3D mouth 3 Medica l tablet 30 (three) Center times daily. NIFEdipine 2018- Yes 90mg Q.5D Take 90 mg C [...] (three) Center times daily with meals. acetaminoph 2019- No 650mg Take [address] [facility] 8 08-21 tablets [facility] - (TYLENOL) 00:00: 23:59 (650 mg Medi diallo 325 MG 00 :00 total) by Center tablet mouth every 6 (six) hours as needed for up to 360 days. Procedures This patient has no known procedures. Plan of Care Planned Activity Planned Date Details Comments Source Future Scheduled 2020-02-[address] [facility] - Test 00:00:00 (#1) [code = [facility] INFLUENZA VACCINE (#1)] Future Scheduled [address] [facility] - Test 00:00:00 (procedure) [code = [facility] [id number]] Encounters Start End Encounter Admission Attending Care Care Encounter Source Date/Time Date/Time Type Type Clinicians Facility Department ID 2019-03-15 Inpatient [facility] [id number] [facility] W 17:40:00 2020-02-01 2020-02-01 Telephone Vesta [facility] [id number] 00:00:00 00:00:00 Agus R SPECIALTY [id number] CARE [id number] [facility] [id number] [address] 2019-12-22 2019-12-22 Telephone [facility] [id number] 00:00:00 00:00:00 Vascular Y HEALTH [id number] Surg CLINICS [id number] 2019-11-19 2019-11-19 Telephone Count includes the [facility] [id number] 00:00:00 00:00:00 [facility] [id number] CLINICS [id number] 2019-11-04 2019-11-04 Telephone [facility] [id number] 00:00:00 00:00:00 [facility] [id number] CLINICS [id number] Results Test Description Test Time Test Comments Results Result [facility] e Comments BREANNA TUNNELED 2019-02-03 FINAL REPORT PATIENT CATHETER 10:49:00 ID: [id number] TUNNELED INSERTION DIALYSIS CATHETER PLACEMENT, UNDER FLUOROSCOPY [...] MDReport Verified Date/Time: 02/03/2019 10:49:11 Reading Location: [place] [address] Angio Body Reading Room REHENSIVE METABOLIC PANEL [...] NOT 1092) ACCURATE CRE ATININE CLEARANCE IN [place] EDICTING GLOMERULAR FILT RATION RATE. ESTIMATED GFR [...] (test code = 413) HEPATITIS B SURFACE [id number] 01:25:00 Test Item Value Reference Range Interpretation Comments HEPATITIS B SURFACE ANTIGEN (2) Nonreactive Nonreactive (BEAKER) (test code = 2585) BASIC METABOLIC [id number] 01:10:00 Test Item Value Reference Range Interpretation [...] S NOT APPLICABLE FOR DIALYSIS PATIEN TS. [id number] 01:03:00 Test Item Value Reference Range Interpretation Comments POTASSIUM (BEAKER) (test code = 5.4 meq/L 3.5-5.1 H 379) PROTHROMBIN TIME/[id number] 01:01:00 Test Item Value Reference Range Interpretation [...] for patients wiht mechanical heart valves.BASIC METABOLIC [id number] 19:02:00 Test Item Value Reference Range Interpretation [...]
--- NOTE | 2020-09-30 01:39 | ER ---
Nurse's Notes [facility] Name: Jermaine Rivera Age: 45 yrs Sex: Male : 1975 Arrival Date: 09/30/2020 Time: 00:36 Bed 3 Private MD: Diagnosis: Displacement of vascular dialysis catheter Presentation: 09/30 00:53 Chief complaint: Patient states: just had his dialysis catheter replaced in his chest iw yesterday, started bleeding about an hour ago, bright red blood noted under Tegaderm dressing, is a pt od Dr. Lomeli, had catheter replaced in [place]. Coronavirus screen: At this time, the client does not indicate any symptoms associated with coronavirus-19. Ebola Screen: Patient negative for fever greater than or equal to 101.5 degrees Fahrenheit, and additional compatible Ebola Virus Disease symptoms Patient denies exposure to infectious person. Patient denies travel to an Ebola-affected area in the 21 days before illness onset. No symptoms or risks identified at this time. Initial Sepsis Screen: Does the patient meet any 2 criteria? No. Patient's initial sepsis screen is negative. Does the patient have a suspected source of infection? No. Patient's initial sepsis screen is negative. Risk Assessment: Do you want to hurt yourself or someone else? Patient reports no desire to harm self or others. Onset of symptoms was September 30, 2020. 00:53 Method Of Arrival: Ambulatory iw 00:53 Acuity: FERNANDA 3 iw Historical: - Allergies: 00:57 No Known Allergies; iw - Home Meds: 00:57 hydralazine 100 mg Oral tab 1 tab 3 times per day [Active]; metoprolol tartrate 50 mg iw Oral tab 2 tabs 2 times per day [Active]; nifedipine 90 mg Oral cpER 1 tab twice a day [Active]; Crystal-Angie Oral [Active]; terazosin 5 mg Oral cap 2 caps twice a day [Active]; Renagel Oral [Active]; - PMHx: 00:57 Brain bleed; CVA; Dialysis; Hypertension; Renal Disease; iw - PSHx: 00:57 None; iw - Immunization history:: Adult Immunizations not up to date. - Social history:: Smoking status: Patient denies any tobacco usage or history of. Screenin:10 Abuse screen: Denies threats or abuse. Denies injuries from another. Nutritional rr5 screening: No deficits noted. Tuberculosis screening: No symptoms or risk factors identified. Fall Risk None identified. Total Ceja Fall Scale indicates No Risk (0-24 pts). Assessment: 01:10 General: Appears in no apparent distress. uncomfortable, Behavior is calm, cooperative, rr5 appropriate for age. 01:10 Pain: Denies pain. Neuro: Level of Consciousness is awake, alert, obeys commands, rr5 Oriented to person, place, time. Cardiovascular: Capillary refill < 3 seconds Patient's skin is warm and dry. dialysis prot left chest, blood on the dressing noted. Respiratory: Airway is patent Respiratory effort is even, unlabored, Respiratory pattern is regular, symmetrical. Derm: Skin is intact, is healthy with good turgor, Skin temperature is warm. Musculoskeletal: Capillary refill < 3 seconds. 01:50 Reassessment: Patient appears in no apparent distress at this time. Patient is alert, rr5 oriented x 3, equal unlabored respirations, skin warm/dry/pink. discharge instruction given and explained without complaints made. Vital Signs: 00:53 BP 141 / 73; Pulse 84; Resp 16; Temp 98.3(TE); Pulse Ox 98% on R/A; Weight 88 kg; iw Height 5 ft. 11 in. (180.34 cm); 01:55 BP 140 / 70; Pulse 80; Resp 17; Pulse Ox 99% ; rr5 00:53 Body Mass Index 27.06 (88.00 kg, 180.34 cm) iw ED Course: 00:36 Patient arrived in ED. am4 00:56 Triage completed. iw 00:57 Arm band placed on. iw 01:10 Patient has correct armband on for positive identification. Bed in low position. Call rr5 light in reach. 01:18 Yonis Edward MD is Attending Physician. tw4 01:26 Carlos Carpenter RN is Primary Nurse. rr5 01:30 Wound care: to dialysis port left chest located on left clavicle was cleaned with rr5 Hibiclens, dressed with 4X4s, surgicel, Patient tolerated well. 01:40 No provider procedures requiring assistance completed. Patient did not have IV access rr5 during this emergency room visit. intact, bleeding controlled, No redness/swelling at site. Pressure dressing applied. Administered Medications: No medications were administered Outcome: 01:38 Discharge ordered by . tw4 01:55 Discharged to home ambulatory. rr5 01:55 Condition: stable 01:55 Discharge instructions given to patient, Instructed on discharge instructions, follow rr5 up and referral plans. Demonstrated understanding of instructions, follow-up care. 01:55 Patient left the ED. rr5 Signatures: Melissa Roth RN RN iw Yonis Edward MD MD tw4 Carlos Carpenter RN RN rr5 Rukhsana Lopez [facility] Corrections: (The following items were deleted from the chart) 01:24 00:53 BP 141 / 73; Pulse 84bpm; Resp 16bpm; Pulse Ox 98% RA; 88 kg; Height 5 ft. 11 iw in.; BMI: 27.0; iw
--- NOTE | 2020-09-30 01:39 | EDPHYS ---
Physician Documentation [facility] Name: Jermaine Rivera Age: 45 yrs Sex: Male : 1975 Arrival Date: 09/30/2020 Time: 00:36 Bed 3 Private MD: ED Physician Yonis Edward HPI: 09/30 01:32 This 45 yrs old Black Male presents to ER via Ambulatory with complaints of Dialysis tw4 Catheter Problem. 01:32 Type of problem: bleeding at site. Onset: The symptoms/episode began/occurred today. tw4 The malfunction was discovered at home. Dialysis schedule: . Associated signs and symptoms: Pertinent positives: None. Pertinent negatives: None. The patient has not experienced similar symptoms in the past. 01:35 The patient has a dialysis catheter in the left subclavian area. Type of problem: tw4 bleeding at site. Historical: - Allergies: 00:57 No Known Allergies; iw - Home Meds: 00:57 hydralazine 100 mg Oral tab 1 tab 3 times per day [Active]; metoprolol tartrate 50 mg iw Oral tab 2 tabs 2 times per day [Active]; nifedipine 90 mg Oral cpER 1 tab twice a day [Active]; Crystal-Angie Oral [Active]; terazosin 5 mg Oral cap 2 caps twice a day [Active]; Renagel Oral [Active]; - PMHx: 00:57 Brain bleed; CVA; Dialysis; Hypertension; Renal Disease; iw - PSHx: 00:57 None; iw - Immunization history:: Adult Immunizations not up to date. - Social history:: Smoking status: Patient denies any tobacco usage or history of. ROS: 01:32 Constitutional: Negative for fever, chills, and weight loss, Eyes: Negative for injury, tw4 pain, redness, and discharge, Cardiovascular: Negative for chest pain, palpitations, and edema, Respiratory: Negative for shortness of breath, cough, wheezing, and pleuritic chest pain, Abdomen/GI: Negative for abdominal pain, nausea, vomiting, diarrhea, and constipation, Back: Negative for injury and pain, MS/Extremity: Negative for injury and deformity, Skin: Negative for injury, rash, and discoloration, Neuro: Negative for headache, weakness, numbness, tingling, and seizure, Psych: Negative for depression, anxiety, suicide ideation, homicidal ideation, and hallucinations. Exam: 01:32 Constitutional: This is a well developed, well nourished patient who is awake, alert, tw4 and in no acute distress. Head/Face: Normocephalic, atraumatic. Cardiovascular: Regular rate and rhythm with a normal S1 and S2. No gallops, murmurs, or rubs. Normal PMI, no JVD. No pulse deficits. Respiratory: Lungs have equal breath sounds bilaterally, clear to auscultation and percussion. No rales, rhonchi or wheezes noted. No increased work of breathing, no retractions or nasal flaring. Abdomen/GI: Soft, non-tender, with normal bowel sounds. No distension or tympany. No guarding or rebound. No evidence of tenderness throughout. Back: No spinal tenderness. No costovertebral tenderness. Full range of motion. Skin: Warm, dry with normal turgor. Normal color with no rashes, no lesions, and no evidence of cellulitis. MS/ Extremity: Pulses equal, no cyanosis. Neurovascular intact. Full, normal range of motion. 01:32 Chest/axilla: Inspection: dialysis catheter in left chest mild bleeding at insertion site. Vital Signs: 00:53 BP 141 / 73; Pulse 84; Resp 16; Temp 98.3(TE); Pulse Ox 98% on R/A; Weight 88 kg; iw Height 5 ft. 11 in. (180.34 cm); 01:55 BP 140 / 70; Pulse 80; Resp 17; Pulse Ox 99% ; rr5 00:53 Body Mass Index 27.06 (88.00 kg, 180.34 cm) iw MDM: 01:19 Patient medically screened. tw4 01:36 Differential diagnosis: shunt malfunction, infected shunt. Data reviewed: vital signs, tw4 nurses notes. Data interpreted: Pulse oximetry: Interpretation: normal. Counseling: I had a detailed discussion with the patient and/or guardian regarding: the historical points, exam findings, and any diagnostic results supporting the discharge/admit diagnosis. Special discussion: I discussed with the patient/guardian in detail that at this point there is no indication for admission to the hospital. It is understood, however, that if the symptoms persist or worsen the patient needs to return immediately for re-evaluation. 09/30 01:50 Order name: Dressing - Wound: change dressing, put surgicel on affected area(around rr5 dialysis port); Complete Time: 01:50 Administered Medications: No medications were administered Disposition: 09/30/20 01:38 Discharged to Home. Impression: Displacement of vascular dialysis catheter. - Condition is Stable. - Discharge Instructions: Dialysis Vascular Access Malfunction. - Medication Reconciliation Form, Thank You Letter, Antibiotic Education, Prescription Opioid Use form. - Follow up: Private Physician; When: Upon discharge from the Emergency Department; Reason: Recheck today's complaints, Continuance of care, Re-evaluation by your physician. - Problem is new. - Symptoms have improved. Signatures: Melissa Roth RN RN iw Yonis Edward MD MD tw4 Carlos Carpenter RN RN rr5 Corrections: (The following items were deleted from the chart) 01:35 01:32 The patient has a dialysis catheter in the right subclavian area, tw4 tw4 01:55 01:38 09/30/2020 01:38 Discharged to Home. Impression: Displacement of vascular rr5 dialysis catheter. Condition is Stable. Forms are Medication Reconciliation Form, Thank You Letter, Antibiotic Education, Prescription Opioid Use. Follow up: Private Physician; When: Upon discharge from the Emergency Department; Reason: Recheck today's complaints, Continuance of care, Re-evaluation by your physician. Problem is new. Symptoms have improved. tw4
[2020-09-30 02:07] VITALS: TEMP 98.3
[2020-09-30 02:09] VITALS: BP 140/70; O2SAT 99
== END 2020-09-30 01:55 | disposition home or self-care (01) ==
LOC: ER 00:35
DX: T82.42XA Displacement of vascular dialysis catheter, initial encounter (principal); I12.0 Hypertensive chronic kidney disease with stage 5 chronic kidney disease or end stage renal disease; N18.6 End stage renal disease; Z99.2 Dependence on renal dialysis; Z86.73 Personal history of transient ischemic attack (TIA), and cerebral infarction without residual deficits
CPT/HCPCS: 99283

== ENCOUNTER 2020-12-07 00:12 | Emergency (ER) | payer OTHER ==
--- OUTSIDE RECORDS SUMMARY | 2020-12-07 00:15 | XMS REPORT | Continuity of Care Document ---
:1975 Author Organization [facility] t Address [address] [place] [address] Care Team Providers Name Role Phone Pcp Primary Care Physician Unavailable Jona King Attending Clinician Faculty, Surg Attending Clinician Unavailable Andrés FAYE Attending Clinician RACHEL PATIÑO Attending Clinician Unavailable RACHEL PATIÑO Admitting Clinician Unavailable Problems Condition Condition Condition Status Onset Resolution Last Treating Co mments Source Name Details Category Date Date Treatment Clinician Date HYPERTENSI Diagnosis Active 2018-062019-04-02 Memoria VE THALAMI 0-06 22:34:00 l 00:00: Demond HYPERTENSI 00 VE THALAMI Active 03/15/2019 [facility] Hyperkalem Hyperkalem Disease [facility] HYPERTENSI Diagnosis Active 2019-04-02 Memoria VE 22:34:00 l EMERGENCY [place] HYPERTENSI VE EMERGENCY Active [facility] [place] Allergies, Adverse Reactions, Alerts This patient has no known allergies or adverse reactions. Social History Social Habit Start Date Stop Date Quantity Comments Source History SDOH [facility] - Alcohol Std Drinks Medica l Center History SDOH [facility] - Alcohol Binge Medical Eleuterio ter Sex Assigned At [facility] Tobacco use and 2019-02-18 2019-02-18 Never used [facility] - exposure 00:00:00 00:00:00 [facility] Alcohol intake 2019-02-18 2019-02-18 Current [facility] [...] 30 daily. Center Tab hydrALAZINE Yes 100mg [id number] Take [address] (APRESOLINE 9-11 [id number] mg by L ukes - ) 100 [...] [facility] - Test 00:00:00 (#1) [code = [facility] INFLUENZA VACCINE (#1)] Future Scheduled [address] [facility] Test 00:00:00 (procedure) [code = [facility] [id number]] Encounters Start End Encounter Admission Attending Care Care Encounter Source Date/Time Date/Time Type Type Clinicians Facility Department ID 2019-03-15 Inpatient [facility] [id number] [facility] W 17:40:00 2020-02-01 2020-02-01 Telephone [facility] [id number] 00:00:00 00:00:00 [facility] R SPECIALTY [id number] [facility] [id number] [facility] [id number] [address] 2019-12-22 2019-12-22 Telephone [facility] [id number] 00:00:00 00:00:00 Vascular Y HEALTH [id number] Surg CLINICS [id number] 2019-11-19 2019-11-[address]114 [id number] 00:00:00 00:00:00 [facility] [id number] [employer] [id number] 2019-11-04 2019-11-04 [address]114 [id number] 00:00:00 00:00:00 [facility] [id number] [employer] [id number] [id number] Results Test Description Test Time Test Comments Results Result [facility] e Comments BREANNA MATHEUSDIANNA 2019-02-03 FINAL REPORT PATIENT CATHETER 10:49:00 ID: [id number] TUNNELED INSERTION DIALYSIS CATHETER PLACEMENT, UNDER FLUOROSCOPY [...] MDReport Verified Date/Time: 02/03/2019 10:49:11 Reading Location: [place] [address] Angio Body Reading Room REHENSIVE METABOLIC PANEL [...] NOT 1092) ACCURATE CRE ATININE CLEARANCE IN [place] EDICTING GLOMERULAR FILT RATION RATE. ESTIMATED GFR [...] (test code = 413) HEPATITIS B SURFACE [id number] 01:25:00 Test Item Value Reference Range Interpretation Comments HEPATITIS B SURFACE ANTIGEN (2) Nonreactive Nonreactive (BEAKER) (test code = 2585) BASIC METABOLIC [id number] 01:10:00 Test Item Value Reference Range Interpretation [...] S NOT APPLICABLE FOR DIALYSIS PATIEN TS. [id number] 01:03:00 Test Item Value Reference Range Interpretation Comments POTASSIUM (BEAKER) (test code = 5.4 meq/L 3.5-5.1 H 379) PROTHROMBIN TIME/[id number] 01:01:00 Test Item Value Reference Range Interpretation [...] for patients wiht mechanical heart valves.BASIC METABOLIC [id number] 19:02:00 Test Item Value Reference Range Interpretation [...]
--- NOTE | 2020-12-07 00:49 | EDPHYS ---
Physician Documentation [facility] Name: Jermaine Rivera Age: 45 yrs Sex: Male : 1975 Arrival Date: 12/07/2020 Time: 00:15 Bed 5 Private MD: ED Physician Alta Garner HPI: 12/07 00:45 This 45 yrs old Black Male presents to ER via Ambulatory with complaints of ma2 Palpitations. 00:45 This 45 yrs old Black Male presents to ER via Ambulatory with complaints of send from ma2 dialysis for evaluation. 00:45 Onset: The symptoms/episode began/occurred gradually, 2 year(s) ago. Associated signs ma2 and symptoms: Pertinent negatives: anxiety, chest pain, cough, fever, lightheadedness, near-syncope, vertigo, vomiting. The patient has experienced similar episodes in the past. patient has always been having irregular heart rate, he is here because dialysis team told him to go to er for evaluation of irregular heart beat. he has no symptoms, no recnt change to medication he has a cereal popper and scheduled appointmtn in 3 weeks, does not want to do any test in er or any blood work.. i explained that we need to check troponin, potassium and h/h, and rule out emergency he insisted on not doing any blood and states he had this for long time and has no symptoms at this time and feels great . Historical: - Allergies: 00:28 No Known Allergies; em - PMHx: 00:28 Hypertension; Dialysis; CVA; Brain bleed; Renal Disease; em - PSHx: 00:28 None; em - Immunization history:: Adult Immunizations up to date, Client reports having NOT received the Covid vaccine. - Social history:: Smoking status: Patient denies any tobacco usage or history of. - Family history:: not pertinent. ROS: 00:45 Constitutional: Negative for fever, chills, and weight loss. ma2 00:45 All other systems are negative. Exam: 00:45 Constitutional: This is a well developed, well nourished patient who is awake, alert, ma2 and in no acute distress. Neck: Trachea midline, no thyromegaly or masses palpated, and no cervical lymphadenopathy. Supple, full range of motion without nuchal rigidity, or vertebral point tenderness. No Meningismus. Chest/axilla: Normal chest wall appearance and motion. Nontender with no deformity. No lesions are appreciated. Cardiovascular: Regular rate and rhythm with a normal S1 and S2. No gallops, murmurs, or rubs. Normal PMI, no JVD. No pulse deficits. Respiratory: Lungs have equal breath sounds bilaterally, clear to auscultation and percussion. No rales, rhonchi or wheezes noted. No increased work of breathing, no retractions or nasal flaring. Abdomen/GI: Soft, non-tender, with normal bowel sounds. No distension or tympany. No guarding or rebound. No evidence of tenderness throughout. MS/ Extremity: Pulses equal, no cyanosis. Neurovascular intact. Full, normal range of motion. Neuro: Awake and alert, GCS 15, oriented to person, place, time, and situation. Cranial nerves II-XII grossly intact. Motor strength 5/5 in all extremities. Sensory grossly intact. Cerebellar exam normal. Normal gait. Vital Signs: 00:26 BP 144 / 86; Pulse 64; Resp 18; Temp 97.6; Pulse Ox 99% on R/A; Weight 84.82 kg; Height em 5 ft. 11 in. (180.34 cm); Pain 4/10; 00:26 Body Mass Index 26.08 (84.82 kg, 180.34 cm) em MDM: 00:45 Patient medically screened. ma2 00:45 Data reviewed: vital signs, nurses notes. Counseling: I had a detailed discussion with ma2 the patient and/or guardian regarding: the historical points, exam findings, and any diagnostic results supporting the discharge/admit diagnosis, the presence of at least one elevated blood pressure reading (>120/80) during this emergency department visit, the need for outpatient follow up. Administered Medications: No medications were administered Disposition Summary: 12/07/20 00:49 Discharge Ordered Location: Home ma2 Condition: Stable ma2 Diagnosis - Essential (primary) hypertension ma2 Followup: ma2 - With: Private Physician - When: Tomorrow - Reason: Continuance of care Discharge Instructions: - Discharge Summary Sheet ma2 - Hypertension, Adult ma2 Forms: - Medication Reconciliation Form ma2 - Thank You Letter ma2 - Antibiotic Education ma2 - Prescription Opioid Use ma2 Signatures: Kelechi Richey Alta Pina RN, MD MD ma2 Corrections: (The following items were deleted from the chart) 00:50 00:49 Chronic systolic (congestive) heart failure morteza ma2
--- NOTE | 2020-12-07 00:49 | ER ---
Nurse's Notes [facility] Name: Jermaine Rivera Age: 45 yrs Sex: Male : 1975 Arrival Date: 12/07/2020 Time: 00:15 Bed 5 Private MD: Diagnosis: Essential (primary) hypertension Presentation: 12/07 00:26 Chief complaint: Patient states: was at dialysis on Saturday and was told to come to the em ED because he had an irregular, denies chest pain or shortness of breath. Coronavirus screen: Client denies travel out of the [place] in the last 14 days. Ebola Screen: Patient negative for fever greater than or equal to 101.5 degrees Fahrenheit, and additional compatible Ebola Virus Disease symptoms Patient denies exposure to infectious person. Patient denies travel to an Ebola-affected area in the 21 days before illness onset. No symptoms or risks identified at this time. Initial Sepsis Screen: Does the patient meet any 2 criteria? No. Patient's initial sepsis screen is negative. Does the patient have a suspected source of infection? No. Patient's initial sepsis screen is negative. Risk Assessment: Do you want to hurt yourself or someone else? Patient reports no desire to harm self or others. Onset of symptoms was December 07, 2020. 00:26 Method Of Arrival: Ambulatory em 00:26 Acuity: FERNANDA 3 em Historical: - Allergies: 00:28 No Known Allergies; em - PMHx: 00:28 Hypertension; Dialysis; CVA; Brain bleed; Renal Disease; em - PSHx: 00:28 None; em - Immunization history:: Adult Immunizations up to date, Client reports having NOT received the Covid vaccine. - Social history:: Smoking status: Patient denies any tobacco usage or history of. - Family history:: not pertinent. Screenin:50 Abuse screen: Denies threats or abuse. Nutritional screening: No deficits noted. bb Tuberculosis screening: No symptoms or risk factors identified. Fall Risk None identified. Assessment: 00:50 General: Appears in no apparent distress. slender, Behavior is calm, cooperative. Pain: bb Denies pain. Neuro: Level of Consciousness is awake, alert, obeys commands, Oriented to person, place, time, situation. Cardiovascular: Capillary refill < 3 seconds Patient's skin is warm and dry. Rhythm is irregular. Respiratory: Airway is patent Respiratory effort is even, unlabored, Respiratory pattern is regular. GI: No signs and/or symptoms were reported involving the gastrointestinal system. Derm: Skin is dry, Skin is normal, Skin temperature is warm. Musculoskeletal: Circulation, motion, and sensation intact. 00:52 Reassessment: Dr Trammell at bedside for discussion of pt's complaint pt denies symptoms bb at this time is aware of his irregular heart rate and had appt with rodding machine tender December 25, 2020. After long discussion pt decided to leave with out treatment. Vital Signs: 00:26 BP 144 / 86; Pulse 64; Resp 18; Temp 97.6; Pulse Ox 99% on R/A; Weight 84.82 kg; Height em 5 ft. 11 in. (180.34 cm); Pain 4/10; 00:26 Body Mass Index 26.08 (84.82 kg, 180.34 cm) em ED Course: 00:15 Patient arrived in ED. cf2 00:28 Triage completed. em 00:28 Arm band placed on. em 00:38 EKG done, by ED staff, reviewed by Alta Garner MD. em 00:45 Alta Garner MD is Attending Physician. ma2 00:50 Stefany Luis RN is Primary Nurse. bb 00:50 Patient has correct armband on for positive identification. Placed in gown. Bed in low bb position. Call light in reach. Side rails up X 1. Pulse ox on. NIBP on. 00:50 No provider procedures requiring assistance completed. Patient did not have IV access bb during this emergency room visit. Administered Medications: No medications were administered Outcome: 00:49 Discharge ordered by . ma2 00:54 Discharged to home ambulatory. bb 00:54 Condition: stable 00:54 Discharge instructions given to patient, Instructed on discharge instructions, follow up and referral plans. Demonstrated understanding of instructions, follow-up care. 00:54 Patient left the ED. bb Signatures: Kelechi Richey, RN RN Stefany Luis, CHRISTOPHE RN Alta Garner MD MD [facility] Najma Green cf2
[2020-12-07 01:06] VITALS: BP 144/86; TEMP 97.6; O2SAT 99
--- NOTE | 2020-12-07 16:34 | EKG ---
Test Date: 2020-12-07 Test Time: 00:36:46 [employer] Starcher: FABIÁN MEASUREMENT RESULTS: Intervals: Rate: 94 DC: 216 QRSD: 88 QT: 348 QTc: 435 Anthony: P: DC: 216 QRS: -27 T: 97 INTERPRETIVE STATEMENTS: Sinus rhythm with 1st degree AV block with premature supraventricular complexes with frequent and consecutive premature ventric Nonspecific T wave abnormality Abnormal ECG Compared to ECG 03/21/2019 23:18:07 Atrial premature complex(es) now present First degree AV block now present T-wave abnormality now present ST (T wave) deviation no longer present Possible ischemia no longer present Prolonged QT interval no longer present Electronically Signed On 12-07-20 16:33:00 CDT by Loki Mitchell
== END 2020-12-07 00:54 | disposition home or self-care (01) ==
LOC: ER 00:12
DX: I12.0 Hypertensive chronic kidney disease with stage 5 chronic kidney disease or end stage renal disease (principal); N18.6 End stage renal disease; Z99.2 Dependence on renal dialysis
CPT/HCPCS: 93005

== ENCOUNTER 2021-01-05 15:38 | Emergency (ER) | payer OTHER ==
--- OUTSIDE RECORDS SUMMARY | 2021-01-05 15:41 | XMS REPORT | Continuity of Care Document ---
:1975 Author Organization [facility] t Address [address] [place] [address] Care Team Providers Name Role Phone Pcp [...] Memoria VE THALAMI 0-06 22:34:00 l 00:00: [place] HYPERTENSI 00 VE THALAMI Active 03/15/2019 [facility] Hyperkalem Hyperkalem Disease Active 2018- [facility] H[facility]SI Diagnosis Active 2019-04-02 Memoria VE 22:34:00 l EMERGENCY [place] HYPERTENSI VE EMERGENCY Active [facility] Allergies, Adverse Reactions, Alerts This patient has no known allergies or adverse reactions. Social History Social Habit Start Date Stop Date Quantity Comments Source History SDOH [facility] Std Drinks [facility] Binge Medical Eleuterio ter Sex Assigned At [facility] Tobacco use and 2019-02-18 2019-02-18 Never used [facility] kes - exposure 00:00:00 00:00:00 [facility] Alcohol intake 2019-02-18 2019-02-18 Current [...] 30 daily. Center Tab hydrALAZINE Yes 100mg [id number] Take [address] (APRESOLINE 9-11 [id number] mg by L ukes - ) 100 [...] [facility] - Test 00:00:00 (#1) [code = Medical Center INFLUENZA VACCINE (#1)] Future Scheduled [address] [facility] - Test 00:00:00 (procedure) [code = [facility] [id number]] Encounters Start End Encounter Admission Attending Care Care Encounter Source Date/Time Date/Time Type Type Clinicians Facility Department ID 2019-03-15 Inpatient [facility] [id number] [facility] 17:40:00 2020-02-01 2020-02-01 Telephone [facility] [id number] 00:00:00 00:00:00 [facility] R SPECIALTY [id number] CARE [id number] [facility] [id number] 2019-12-22 2019-12-22 Telephone [facility] [id number] 00:00:00 00:00:00 Vascular Y HEALTH [id number] Surg CLINICS [id number] 2019-11-19 2019-11-19 Telephone [facility] [id number] 00:00:00 00:00:00 Ted [facility] [id number] CLINICS [id number] 2019-11-04 2019-11-04 Telephone [facility] [id number] 00:00:00 00:00:00 [facility] [id number] CLINICS [id number] Results Test Description Test Time Test Comments Results Result [facility] e Comments BREANNA TUNNELED 2019-02-03 FINAL REPORT PATIENT CATHETER 10:49:00 ID: [id number] TUNNELED INSERTION DIALYSIS CATHETER PLACEMENT, UNDER FLUOROSCOPY [...] MDReport Verified Date/Time: 02/03/2019 10:49:11 Reading Location: [place] [address] Angio Body Reading Room REHENSIVE METABOLIC PANEL [...] NOT 1092) ACCURATE CRE ATININE CLEARANCE IN NC EDICTING GLOMERULAR FILT RATION RATE. ESTIMATED GFR [...] (test code = 413) HEPATITIS B SURFACE [id number] 01:25:00 Test Item Value Reference Range Interpretation Comments HEPATITIS B SURFACE ANTIGEN (2) Nonreactive Nonreactive (BEAKER) (test code = 2585) BASIC METABOLIC [id number] 01:10:00 Test Item Value Reference Range Interpretation [...] S NOT APPLICABLE FOR DIALYSIS PATIEN TS. [id number] 01:03:00 Test Item Value Reference Range Interpretation Comments POTASSIUM (BEAKER) (test code = 5.4 meq/L 3.5-5.1 H 379) PROTHROMBIN TIME/[id number] 01:01:00 Test Item Value Reference Range Interpretation [...] for patients wiht mechanical heart valves.BASIC METABOLIC [id number] 19:02:00 Test Item Value Reference Range Interpretation [...]
[2021-01-05 16:02] LABS: Absolute Lymphocytes (CBC) 0.2 K/uL (0.7-4.9); Basophils % 0.3 % (0-1.3); Hematocrit 34.9 % (39.6-49.0); Lymphocytes % 1.7 % (15.3-44.8); MPV 7.6 fL (7.6-11.3); RBC Red Blood Cell Count 3.99 M/uL (4.33-5.43)
[2021-01-05 16:03] LABS: Protime INR 1.29
[2021-01-05 16:27] LABS: Albumin 2.4 g/dL (3.4-5.0); Bilirubin Direct 0.3 mg/dL (0-0.2); Bilirubin Total 0.6 mg/dL (0.2-1.0); Magnesium 1.9 mg/dL (1.8-2.4); Potassium 4.5 mmol/L (3.5-5.1); Protein, Total 6.2 g/dL (6.4-8.2)
[2021-01-05 16:28] LABS: Troponin (Emerg Dept Use Only) 1.03 ng/mL (0.0-0.045)
[2021-01-05] MEDS ORDERED: ACETAMINOPHEN 500 MG TAB ONE ×2 (16:33→18:51)
--- NOTE | 2021-01-05 16:42 | RAD REPORT ---
EXAM DESCRIPTION: RAD - Chest Single View - 01/05/2021 4:33 pm CLINICAL HISTORY: SOB COMPARISON: Chest Single View dated 03/21/2019; Chest Single View dated 03/15/2019; Chest Single View dated 02/04/2018; Chest Single View dated 11/18/2017 FINDINGS: Cardiomegaly. Left IJ approach dialysis catheter. Increased prominence of the pulmonary in terstitium. No acute osseous abnormality. No significant pleural effusions or pneumothorax. IMPRESSION: Developing pulmonary edema.
[2021-01-05 16:43] LABS: Platelet Estimate DECR; White Blood Cell Scan OK (OK)
[2021-01-05 16:44] LABS: Blood Morphology Comment NOT SEEN (NOT SEEN)
--- NOTE | 2021-01-05 17:55 | RAD REPORT ---
EXAM DESCRIPTION: CT - Chest Abd Pelvis Wo Con - 01/05/2021 5:44 pm CLINICAL HISTORY: Chest and abdomen pain. diarrhea COMPARISON: Chest Single View dated 01/05/2021; Abdomen Pelvis Wo Contrast dated 09/13/2020 TECHNIQUE: Approximately 100 mL nonionic IV contrast was not administered to the patient. All CT scans are performed using dose optimization technique as appropriate and may include automated exposure control or mA/KV adjustment according to patient size. FINDINGS: Diffuse interlobular septal thickening and mild scattered ground-glass opacities. Subpleur al nodularity in the right lung base similar. Cardiomegaly. Multi-vessel coronary artery disease. Lef t upper chest wall dialysis catheter.No pleural or pericardial effusion.No intrathoracic adenopathy. Hepatomegaly. No focal liver lesions are identified. Gallbladder is not well assessed without contras t. The kidneys are not well assessed without contrast. There are multiple left renal lesions which ar e not well characterized. The right kidney is not well-visualized. Small volume of ascites. Mild pros tatomegaly. No bowel obstruction is seen. Nonspecific sclerotic foci in the right iliac bone are unch anged. Anasarca. Likely reactive inguinal lymph nodes. IMPRESSION: 1. Anasarca including mild pulmonary edema, body wall edema, and ascites. 2. No significant change or definite acute finding is present within the abdomen or pelvis. Limited d ue to lack of intra-abdominal fat and lack of contrast.
--- NOTE | 2021-01-05 18:34 | EDPHYS ---
Physician Documentation [facility] Name: Jermaine Rivera Age: 45 yrs Sex: Male : 1975 Arrival Date: 01/05/2021 Time: 15:39 Bed 23 Private MD: ED Physician Riley Stovall HPI: 01/05 15:53 This 45 yrs old Black Male presents to ER via EMS with complaints of Diarrhea. cp 15:53 The patient presents to the emergency department with vomiting, that is intermittent, cp diarrhea, that is continuous. 15:54 Onset: The symptoms/episode began/occurred 2 day(s) ago. Possible causes: bad food cp exposure, mother's gumbo. Associated signs and symptoms: Pertinent positives: abdominal pain, fever, shortness of breath, Pertinent negatives: GI bleeding, chest pain. Severity of symptoms: in the emergency department the symptoms are unchanged despite home interventions. Historical: - Allergies: 16:05 No Known Allergies; aa5 - Home Meds: 15:42 hydralazine 100 mg Oral tab 1 tab 3 times per day [Active]; metoprolol tartrate 50 mg iw Oral tab 2 tabs 2 times per day [Active]; nifedipine 90 mg Oral cpER 1 tab twice a day [Active]; Renagel Oral [Active]; terazosin 5 mg Oral cap 2 caps twice a day [Active]; Crystal-Angie Oral [Active]; - PMHx: 15:42 Brain bleed; CVA; Dialysis; Hypertension; Renal Disease; iw - Immunization history:: Client reports having NOT received the Covid vaccine. Flu vaccine is not up to date. - Social history:: Smoking status: Patient denies any tobacco usage or history of. ROS: 15:55 Eyes: Negative for pain, redness. cp 15:55 Respiratory: Negative for cough, wheezing. 15:55 Abdomen/GI: Positive for abdominal pain, nausea, vomiting, and diarrhea, anorexia, Negative for constipation, hematemesis, black/tarry stool, rectal bleeding. 15:55 Neuro: Negative for altered mental status, headache, syncope, weakness. 15:55 All other systems are negative. Exam: 15:56 Head/Face: Normocephalic, atraumatic. cp 15:56 Constitutional: The patient appears in no acute distress, alert, awake, non-diaphoretic, non-toxic, well developed, well nourished. 15:56 Eyes: Periorbital structures: appear normal, Conjunctiva: normal, no exudate, no injection, Sclera: no appreciated abnormality, Lids and lashes: appear normal, bilaterally. 15:56 ENT: External ear(s): are unremarkable, Nose: is normal, Mouth: Lips: moist, Oral mucosa: moist, Posterior pharynx: Airway: no evidence of obstruction, patent. 15:56 Chest/axilla: Inspection: normal. 15:56 Respiratory: the patient does not display signs of respiratory distress, Respirations: normal, no use of accessory muscles, no retractions, labored breathing, is not present, Breath sounds: are clear throughout, no decreased breath sounds. 15:56 Abdomen/GI: Inspection: abdomen appears normal, Bowel sounds: active, all quadrants, Palpation: soft, in all quadrants, mild abdominal tenderness, in all quadrants. 15:56 Back: pain, is absent, ROM is normal. 15:56 Neuro: Orientation: to person, place \T\ time. Mentation: is normal. 17:24 ECG was reviewed by the Attending Physician. Vital Signs: 16:00 BP 107 / 59; Pulse 99; Resp 20 S; Temp 101.5(O); Pulse Ox 96% on R/A; Weight 86.18 kg aa5 (R); Height 6 ft. 1 in. (185.42 cm) (R); 19:15 BP 111 / 75; Pulse 85; Resp 18; Pulse Ox 97% on 2 lpm NC; tr6 16:00 Body Mass Index 25.07 (86.18 kg, 185.42 cm) aa5 MDM: 16:00 Differential diagnosis: gastritis, pancreatitis, appendicitis, diverticulitis, viral cp gastroenteritis, gastroenteritis, sepsis, acute MA. 17:08 Patient medically screened. 18:00 Data reviewed: vital signs, nurses notes, lab test result(s), EKG, radiologic studies, cp CT scan, plain films, I have discussed the patient's presentation/case with the attending Emergency Department Physician; and as a result, I will admit patient. 18:00 Counseling: I had a detailed discussion with the patient and/or guardian regarding: the historical points, exam findings, and any diagnostic results supporting the discharge/admit diagnosis, lab results, radiology results, the need for further work-up and treatment in the hospital. 01/05 15:44 Order name: Basic Metabolic Panel 01/05 15:44 Order name: CBC with Diff 01/05 15:44 Order name: LFT's 01/05 15:44 Order name: Magnesium; Complete Time: 16:30 01/05 15:44 Order name: NT PRO-BNP; Complete Time: 16:30 01/05 16:30 Interpretation: Abnormal: NT PRO-BNP [id number]. 01/05 15:44 Order name: PT-INR; Complete Time: 16:30 01/05 15:44 Order name: Troponin (emerg Dept Use Only); Complete Time: 16:30 01/05 16:30 Interpretation: Abnormal: TROPED 1.03. 01/05 15:44 Order name: Lipase; Complete Time: 16:30 01/05 15:44 Order name: Basic Metabolic Panel; Complete Time: 16:30 [facility] 01/05 17:09 Interpretation: Normal except: BUN 52; CRE 11.10; GFR 6. 01/05 15:44 Order name: CBC with Automated Diff; Complete Time: 17:09 [facility] 01/05 16:31 Interpretation: Normal except: RBC 3.99; HGB 11.3; HCT 34.9; PLT 94; ZACK% 91.5; LYM% cp 1.7; NEUT A 9.5; LYMA 0.2. 01/05 15:44 Order name: Liver (Hepatic) Function; Complete Time: 16:30 [facility] 01/05 16:43 Order name: CBC Smear Scan; Complete Time: 17:09 [facility] 01/05 17:10 Order name: Influenza Screen (a \T\ B) 01/05 15:44 Order name: XRAY Chest (1 view); Complete Time: 17:09 01/05 17:16 Order name: Blood Culture Adult (2) 01/05 17:16 Order name: Lactate 01/05 17:16 Order name: Procalcitonin 01/05 17:16 Order name: CT Chest Abdomen Pelvis W/O Contrast; Complete Time: 17:57 01/05 17:54 Order name: Fecal Leukocyte Stain [facility] 01/05 17:54 Order name: Ova And Parasites [facility] 01/05 17:54 Order name: Stool Culture [facility] 01/05 17:54 Order name: C.difficile [facility] 01/05 15:44 Order name: EKG; Complete Time: 15:44 01/05 15:44 Order name: Cardiac monitoring; Complete Time: 18:33 01/05 15:44 Order name: EKG - Nurse/Tech; Complete Time: 18:33 01/05 15:44 Order name: IV Saline Lock; Complete Time: 18: 01/05 15:44 Order name: Labs collected and sent; Complete Time: 18: 01/05 15:44 Order name: O2 Per Protocol; Complete Time: 18: 01/05 15:44 Order name: O2 Sat Monitoring; Complete Time: 18: EC:24 Rate is 92 beats/min. Rhythm is regular. HI interval is normal. QRS interval is normal. cp QT interval is normal. T waves are Inverted in leads I, aVR, V6. Interpreted by me. Reviewed by me. Administered Medications: 16:12 Drug: Tylenol 1000 mg Route: PO; aa5 18:33 Drug: Aspirin Chewable Tablet 324 mg Route: PO; tr6 Disposition: 19:30 Chart complete. cp 01/06 06:28 Co-signature as Attending Physician, Riley Stovall MD I agree with the assessment and iris plan of care. Disposition Summary: 01/05/21 19:24 Left Against Medical Advice Location: Home(01/05/21 19:24) cp Problem: new(01/05/21 19:24) cp Symptoms: have improved(01/05/21 19:24) cp Condition: Stable(01/05/21 19:24) cp Diagnosis - Subsequent non-ST elevation (NSTEMI) myocardial infarction(01/05/21 19:24) cp - Fever, unspecified(01/05/21 19:24) cp - Diarrhea, unspecified(01/05/21 19:24) cp Followup: cp - With: Emergency Department - When: As needed - Reason: Worsening of condition Signatures: Dispatcher [employer] EDRiley Mueller MD MD cha Williams, Irene, RN RN Cris Cagle RN RN aa5 Kang Malone, WEIGHT TRAINING INSTRUCTOR-C WEIGHT TRAINING INSTRUCTOR-Cla1 Riley Jaquez PA PA cp Ramnanan, Tiffany, RN RN tr6 Corrections: (The following items were deleted from the chart) 01/05 18:40 17:11 CORONAVIRUS+MR.LAB.BRZ ordered. EDMS EDMS 19:23 18:34 Inpatient Admission cp cp 19:23 18:34 NuhaStan benavidez cp cp 19:23 18:34 Telemetry/MedSurg (Inpatient) cp cp 19:23 18:34 Stable cp cp 19:23 18:34 new cp cp 19:23 18:34 have improved cp cp 19:23 18:34 Standard cp cp 19:23 18:34 cp cp 19:23 18:34 Diarrhea, unspecified cp cp 19:23 18:34 Fever, unspecified cp cp 19:23 18:34 Subsequent non-ST elevation (NSTEMI) myocardial infarction cp cp 01/06 16:34 01/05 15:54 Associated signs and symptoms: Pertinent positives: abdominal pain, fever, cp Pertinent negatives: GI bleeding, cp
--- NOTE | 2021-01-05 18:34 | ER ---
Nurse's Notes [facility] Name: Jermaine Rivera Age: 45 yrs Sex: Male : 1975 Arrival Date: 01/05/2021 Time: 15:39 Bed 23 Private MD: Diagnosis: Subsequent non-ST elevation (NSTEMI) myocardial infarction;Fever, unspecified;Diarrhea, unspecified Presentation: 01/05 15:41 Chief complaint: EMS states: diarrhea since Saturday after eating gumbo, also reports iw some SOB, temp was 99.8 , hx of dialysis, last dialyzed yesterday. Coronavirus screen: diarrhea, fever, Client presents with at least one sign or symptom that may indicate coronavirus-19. Ebola Screen: Patient negative for fever greater than or equal to 101.5 degrees Fahrenheit, and additional compatible Ebola Virus Disease symptoms Patient denies exposure to infectious person. Patient denies travel to an Ebola-affected area in the 21 days before illness onset. No symptoms or risks identified at this time. Risk Assessment: Do you want to hurt yourself or someone else? Patient reports no desire to harm self or others. Onset of symptoms was January 03, 2021. 15:41 Method Of Arrival: EMS: [facility] iw 16:00 Initial Sepsis Screen: Does the patient meet any 2 criteria? Temp <36.0*C (96.8*F)) or aa5 > 38.3*C (100.9*F). HR > 90 bpm. Yes Does the patient have a suspected source of infection? Yes:. 16:00 Acuity: FERNANDA 2 aa5 Historical: - Allergies: 16:05 No Known Allergies; aa5 - Home Meds: 15:42 hydralazine 100 mg Oral tab 1 tab 3 times per day [Active]; metoprolol tartrate 50 mg iw Oral tab 2 tabs 2 times per day [Active]; nifedipine 90 mg Oral cpER 1 tab twice a day [Active]; Renagel Oral [Active]; terazosin 5 mg Oral cap 2 caps twice a day [Active]; Crystal-Angie Oral [Active]; - PMHx: 15:42 Brain bleed; CVA; Dialysis; Hypertension; Renal Disease; iw - Immunization history:: Client reports having NOT received the Covid vaccine. Flu vaccine is not up to date. - Social history:: Smoking status: Patient denies any tobacco usage or history of. Assessment: 18:00 General: Appears in no apparent distress. Behavior is appropriate for age. Pain: Denies tr6 pain. Neuro: No deficits noted. Level of Consciousness is awake, alert, obeys commands, Oriented to person, place, time, situation, Appropriate for age. Cardiovascular: No deficits noted. Respiratory: No deficits noted. GI: Parent/caregiver reports the patient having diarrhea. : No deficits noted. EENT: No deficits noted. Derm: No deficits noted. Musculoskeletal: No deficits noted. 19:13 Reassessment: pt AOx3, family at bedside. pt wishes to sign out AMA. PA Page at bedside tr6 to discuss risks of signing out AMA. pt verbalized understanding. AMA form signed. pt d/c via wheelchair with family. Vital Signs: 16:00 BP 107 / 59; Pulse 99; Resp 20 S; Temp 101.5(O); Pulse Ox 96% on R/A; Weight 86.18 kg aa5 (R); Height 6 ft. 1 in. (185.42 cm) (R); 19:15 BP 111 / 75; Pulse 85; Resp 18; Pulse Ox 97% on 2 lpm NC; tr6 16:00 Body Mass Index 25.07 (86.18 kg, 185.42 cm) aa5 ED Course: 15:39 Patient arrived in ED. iw 15:42 Triage completed. iw 15:43 Arm band placed on. iw 15:53 Riley Jaquez PA is PHCP. cp 15:53 Riley Stovall MD is Attending Physician. cp 16:33 XRAY Chest (1 view) In Process Unspecified. EDMS 17:44 CT Chest Abdomen Pelvis W/O Contrast In Process Unspecified. EDMS 17:46 Ana Harrison, CHRISTOPHE is Primary Nurse. tr6 18:33 Stan Chaudhary is Hospitalizing Provider. cp 18:37 Patient has correct armband on for positive identification. Bed in low position. Call 5 light in reach. Side rails up X 1. Pillow given. Pulse ox on. NIBP on. 18:37 COVID swab sent to lab. 5 Administered Medications: 16:12 Drug: Tylenol 1000 mg Route: PO; aa5 18:33 Drug: Aspirin Chewable Tablet 324 mg Route: PO; tr6 Outcome: 18:34 Decision to Hospitalize by Provider. cp 19:34 Patient left the ED. ld1 Signatures: Dispatcher [employer] Melissa Sprague RN RN Cris Cagle RN RN aa5 Riley Jaquez PA PA cp Martinez, Maria [facility] Saloni Jason RN RN ld1 Ana Harrison RN RN tr6 Corrections: (The following items were deleted from the chart) 16:04 15:41 Coronavirus screen: diarrhea, Client presents with at least one sign or symptom aa5 that may indicate coronavirus-19. 16:04 15:41 Initial Sepsis Screen: Does the patient meet any 2 criteria? No. Patient's aa5 initial sepsis screen is negative. Does the patient have a suspected source of infection? No. Patient's initial sepsis screen is negative. 16:05 16:00 Initial Sepsis Screen: Does the patient meet any 2 criteria? Temp <36.0*C aa5 (96.8*F)) or > 38.3*C (100.9*F). HR > 90 bpm. Yes Does the patient have a suspected source of infection? Yes: aa5 16:06 15:41 Acuity: FERNANDA 3 iw aa5 18:40 18:36 CORONAVIRUS+ drawn and sent. [facility]
[2021-01-05] MEDS ORDERED: ASPIRIN 81 MG CHEWABLE TABLET ONE (18:51)
[2021-01-06 01:21] VITALS: TEMP 101.5
[2021-01-06 01:23] VITALS: BP 111/75; O2SAT 97
== END 2021-01-05 19:34 | disposition left against medical advice (07) ==
LOC: ER 15:38
DX: I21.4 Non-ST elevation (NSTEMI) myocardial infarction (principal); R19.7 Diarrhea, unspecified; I12.0 Hypertensive chronic kidney disease with stage 5 chronic kidney disease or end stage renal disease; N18.6 End stage renal disease; Z99.2 Dependence on renal dialysis; Z86.73 Personal history of transient ischemic attack (TIA), and cerebral infarction without residual deficits; Z20.822 Contact with and (suspected) exposure to COVID-19
CPT/HCPCS: 93005; 87040 ×2; 85025; 80048; 36415; 83735; 87205 ×4; 85610; 80076; 83605; 87077 ×2; 87186 ×2; 84484; 83690; 84145; 83880; 87804 ×2; 71250; 74176; 71045; 99284; U0003

== ENCOUNTER 2021-01-06 10:08 | Inpatient (IN) | payer OTHER ==
--- OUTSIDE RECORDS SUMMARY | 2021-01-06 10:12 | XMS REPORT | Continuity of Care Document ---
:1975 Author Organization [facility] t Address [address] [place] [address] Care Team Providers Name Role Phone Pcp [...] Memoria VE THALAMI 0-06 22:34:00 l 00:00: [place] HYPERTENSI 00 VE THALAMI Active 03/15/2019 [facility] Hyperkalem Hyperkalem Disease Active 2018- [facility] HYP[facility]ENSI Diagnosis Active 2019-04-02 Memoria VE 22:34:00 l EMERGENCY Dem[facility] HYPERTENSI VE EMERGENCY Active [facility] Allergies, Adverse Reactions, Alerts This patient has no known allergies or adverse reactions. Social History Social Habit Start Date Stop Date Quantity Comments Source History SDOH [facility] Std Drinks [facility] History [facility] Binge Medical Eleuterio ter Sex Assigned At [facility] Tobacco use and 2019-02-18 2019-02-18 Never used [facility] kes - exposure 00:00:00 00:00:00 [facility] Center Alcohol intake 2019-02-18 2019-02-18 Current [facility] [...] 30 daily. Center Tab hydrALAZINE Yes 100mg [id number] Take [address] (APRESOLINE 9-11 [id number] mg by L ukes - ) 100 [...] s - Test 00:00:00 (procedure) [code = [facility] [id number]] Encounters Start End Encounter Admission Attending Care Care Encounter Source Date/Time Date/Time Type Type Clinicians Facility Department ID 2019-03-15 Inpatient [facility] PUL [id number] [facility] W 17:40:00 2020-02-01 2020-02-01 Telephone [facility] [id number] 00:00:00 00:00:00 Agus R SPECIALTY [id number] CARE [id number] [facility] [id number] 2019-12-22 2019-12-22 Telephone [facility] [id number] 00:00:00 00:00:00 Vascular Y HEALTH [id number] Surg CLINICS [id number] 2019-11-19 2019-11-19 Telephone [facility] [id number] 00:00:00 00:00:[address] [facility] [id number] CLINICS [id number] 2019-11-04 2019-11-04 Telephone [facility] [id number] 00:00:00 00:00:00 [facility] [id number] CLINICS [id number] Results Test Description Test Time Test Comments Results Result [facility] e Comments BREANNA TUNNELED 2019-02-03 FINAL REPORT PATIENT CATHETER 10:49:00 ID: [id number] TUNNELED INSERTION DIALYSIS CATHETER PLACEMENT, UNDER FLUOROSCOPY [...] MDReport Verified Date/Time: 02/03/2019 10:49:11 Reading Location: [place] [address] Angio Body Reading Room REHENSIVE METABOLIC PANEL [...] NOT 1092) ACCURATE CRE ATININE CLEARANCE IN CT EDICTING GLOMERULAR FILT RATION RATE. ESTIMATED GFR [...] (test code = 413) HEPATITIS B SURFACE [id number] 01:25:00 Test Item Value Reference Range Interpretation Comments HEPATITIS B SURFACE ANTIGEN (2) Nonreactive Nonreactive (BEAKER) (test code = 2585) BASIC METABOLIC [id number] 01:10:00 Test Item Value Reference Range Interpretation [...] S NOT APPLICABLE FOR DIALYSIS PATIEN TS. [id number] 01:03:00 Test Item Value Reference Range Interpretation Comments POTASSIUM (BEAKER) (test code = 5.4 meq/L 3.5-5.1 H 379) PROTHROMBIN TIME/[id number] 01:01:00 Test Item Value Reference Range Interpretation [...] for patients wiht mechanical heart valves.BASIC METABOLIC [id number] 19:02:00 Test Item Value Reference Range Interpretation [...]
[2021-01-06 10:32] LABS: Absolute Lymphocytes (CBC) 0.2 K/uL (0.7-4.9); Basophils % 0.5 % (0-1.3); Hematocrit 35.8 % (39.6-49.0); Lymphocytes % 1.5 % (15.3-44.8); MPV 8.4 fL (7.6-11.3); RBC Red Blood Cell Count 4.15 M/uL (4.33-5.43)
[2021-01-06 10:39] LABS: Protime INR 1.29
--- NOTE | 2021-01-06 10:41 | RAD REPORT ---
EXAM DESCRIPTION: CT - Ct Stroke Brain Wo Cont - 01/06/2021 10:24 am CLINICAL HISTORY: Left-sided weakness COMPARISON: 2019 TECHNIQUE: Computed axial tomography of the head was obtained. All CT scans are performed using dose optimization technique as appropriate and may include automated exposure control or mA/KV adjustment according to patient size. FINDINGS: An intracranial bleed is not seen . The ventricles are normal in caliber. No extra-axial fluid collection is noted. Low-density within the right cerebrum secondary to an old bleed. Mild low-density areas within deep and subcortical white matter presumably chronic. Fluid within the sinuses/ mastoids is not seen. IMPRESSION: No acute intracranial abnormality is seen. If patient's symptoms persist MRI of the bra in would be recommended. Dr Stovall of the emergency room was notified at 10:25 a.m. January 06, 2021
[2021-01-06 10:51] LABS: Potassium 4.7 mmol/L (3.5-5.1)
[2021-01-06 11:02] LABS: Toxic Granulation PRESENT
[2021-01-06 11:03] LABS: Blood Morphology Comment NOT SEEN (NOT SEEN); Platelet Estimate DECR
--- NOTE | 2021-01-06 11:10 | RAD REPORT ---
EXAM DESCRIPTION: [facility] Single View01/06/2021 10:56 am CLINICAL HISTORY: Code stroke/cardiomegaly COMPARISON: January 05, 2021 FINDINGS: Mild bilateral pulmonary opacities. Marked cardiomegaly. Central venous catheter in place IMPRESSION: Mild pulmonary edema
[2021-01-06 11:13] LABS: Troponin (Emerg Dept Use Only) 1.19 ng/mL (0.0-0.045)
[2021-01-06] MEDS ORDERED: VANCOMYCIN/NS 1 gm 1 GM/250 ML BAG IV ONE (11:15)
[2021-01-06] MEDS ORDERED: CEFEPIME/SWI 1gm 10 ML ONE (11:33)
[2021-01-06] MEDS ORDERED: ACETAMINOPHEN 500 MG TAB ONE (11:41)
--- NOTE | 2021-01-06 13:00 | ER ---
Nurse's Notes [facility] Name: Jermaine Rivera Age: 45 yrs Sex: Male : 1975 Arrival Date: 01/06/2021 Time: 10:12 Bed 5 Private MD: Diagnosis: Altered mental status, unspecified;Severe sepsis without septic shock Presentation: 01/06 10:15 Chief complaint: EMS states: were called out for AMS and weakness, was seen here last iw night and left AMA, pt was confused and uncooperative on scene, pt presents with left sided weakness and confused about time and place, pt last known well was last night. Coronavirus screen: At this time, the client does not indicate any symptoms associated with coronavirus-19. Ebola Screen: Patient negative for fever greater than or equal to 101.5 degrees Fahrenheit, and additional compatible Ebola Virus Disease symptoms Patient denies exposure to infectious person. Patient denies travel to an Ebola-affected area in the 21 days before illness onset. No symptoms or risks identified at this time. Risk Assessment: Do you want to hurt yourself or someone else? Patient reports no desire to harm self or others. 10:15 Method Of Arrival: EMS: [facility] iw 10:15 Acuity: FERNANDA 2 iw 10:26 Onset of symptoms was January 05, 2021. iw 10:32 Initial Sepsis Screen: Does the patient have a suspected source of infection? No. iw Patient's initial sepsis screen is negative. Historical: - Allergies: 10:22 No Known Allergies; sv - PMHx: 10:22 CVA; sv - Immunization history:: Adult Immunizations unknown. - Social history:: Smoking status: unknown. Screenin:53 Abuse screen: Denies threats or abuse. Denies injuries from another. Nutritional hb screening: No deficits noted. Tuberculosis screening: No symptoms or risk factors identified. Fall Risk Total Ceja Fall Scale indicates High Risk Score (45 or more points). Fall prevention measures have been instituted. Side Rails Up X 2 Frequent Obs/Assessments Occuring As available patient and family educated on Fall Prevention Program and Strategies. Assessment: 10:12 Reassessment: Code Stroke called. sv 10:15 Reassessment: Pt to CT. hb 10:57 Reassessment: Pt agitated, swinging towards staff with closed fist, wants to go home. SOURAV Ybarra notified. 10:59 Reassessment: SOURAV Ybarra at Charge Nurse Melissa SAEED at bedside. hb 11:16 Reassessment: pt uncooperative, trying to get out of bed, refusing treatment SOURAV Ybarra iw at bedside , pt still confused to time and place, pt encouraged to stay in bed, pt agrees to have antibiotics. 11:39 Reassessment: Family at bedside, NAD. VSS. hb 12:16 Reassessment: Pt agitated, sitting up in bed, stated "get the fuck out of here, you hb said this shit three fucking hours ago" after IV medication started. NAD. VSS. 13:20 Reassessment: Swati [phone]. hb 13:35 Reassessment: Patient appears in no apparent distress at this time. Patient and/or hb family updated on plan of care and expected duration. Pain level reassessed. 14:27 Reassessment: Patient appears in no apparent distress at this time. No changes from hb previously documented assessment. 16:19 Reassessment: Patient appears in no apparent distress at this time. No changes from hb previously documented assessment. Patient and/or family updated on plan of care and expected duration. Pain level reassessed. 17:43 Reassessment: Patient appears in no apparent distress at this time. No changes from hb previously documented assessment. Patient and/or family updated on plan of care and expected duration. Pain level reassessed. 18:29 Reassessment: Patient appears in no apparent distress at this time. No changes from hb previously documented assessment. Patient and/or family updated on plan of care and expected duration. Pain level reassessed. 20:14 Reassessment: Patient and/or family updated on plan of care and expected duration. Pain ea level reassessed. Pt admitted to second floor, left ED via stretcher per a&p technician, pt tolerating well. Vital Signs: 10:34 BP 106 / 64; Pulse 104; Resp 16 S; Temp 100.5(TE); Pulse Ox 96% on R/A; iw 11:00 BP 110 / 71; Pulse 102; Resp 16; Pulse Ox 96% ; sv 12:00 BP 116 / 76; Pulse 100; Resp 15; Temp 98.9; Pulse Ox 100% on R/A; hb 13:35 BP 122 / 74; Pulse 92; Resp 15; Pulse Ox 99% on R/A; hb 14:45 BP 107 / 68; Pulse 106; Resp 14; Pulse Ox 100% ; sv 15:30 BP 115 / 75; Pulse 116; Resp 16; Pulse Ox 100% ; sv 16:19 BP 107 / 75; Pulse 109; Resp 19; Pulse Ox 99% on R/A; sv 17:00 BP 104 / 74; Pulse 112; Resp 16; Pulse Ox 99% ; sv 17:45 BP 125 / 99; Pulse 112; Resp 16; Pulse Ox 99% ; sv 18:30 BP 101 / 45; Pulse 116; Resp 19; Pulse Ox 98% on R/A; hb 20:13 BP 116 / 72; Pulse 113; Resp 18; Pulse Ox 99% ; ea NIH Stroke Scale Scores: 12:36 NIHSS Score: 9 jr8 ED Course: 10:12 Patient arrived in ED. jr8 10:17 Tate Stanley PA is PHCP. jr8 10:17 Riley Stovall MD is Attending Physician. jr8 10:17 Inserted saline lock: 20 gauge in right antecubital area, using aseptic technique. sv Blood collected. Flushed right antecubital with 5 ml normal saline. 10:[address] via stretcher. sv 10:22 Arm band placed on. sv 10:24 CT Stroke Brain w/o Contrast In Process Unspecified. EDMS 10:26 Triage completed. iw 10:26 Gladys Zarco, RN is Primary Nurse. hb 10:53 Patient has correct armband on for positive identification. Placed in gown. Bed in low hb position. Call light in reach. Side rails up X2. hospital monitor on. Pulse ox on. NIBP on. 10:56 Stroke CXR 1 View In Process Unspecified. EDMS 12:04 Patient moved back from MRI. sv 12:59 Stan Chaudhary is Hospitalizing Provider. jr8 19:10 Report given to Raeann SAEED and Johnathon RN. sv 19:34 No provider procedures requiring assistance completed. Patient admitted, IV remains in ea place. 19:54 Primary Nurse role handed off by Gladys Zarco, RN mw2 Administered Medications: 11:15 Drug: Cefepime 1 grams Route: IVPB; Rate: 200 ml/hr; Infused Over: 30 mins; Site: right iw antecubital; 11:18 Follow up: Response: No adverse reaction; IV Status: Completed infusion; IV Intake: 10mlsv 11:23 Drug: Tylenol 1000 mg Route: PO; iw 12:00 Follow up: Response: No adverse reaction sv 12:00 Drug: vancoMYCIN 1 grams Route: IVPB; Infused Over: 2 hrs; Site: right antecubital; hb 13:23 Drug: Ativan (LORazepam) 1 mg Route: IVP; Site: right antecubital; sv 14:36 Follow up: Response: No adverse reaction sv 16:39 Drug: NS 0.9% 250 ml Route: IV; Rate: bolus; Site: right antecubital; sv 16:58 Follow up: Response: No adverse reaction; IV Status: Completed infusion; IV Intake: sv 250ml Point of Care Testing: Blood Glucose: 10:15 Blood Glucose: 104 mg/dL; sv Ranges: Intake: 11:18 IV: 10ml; Total: 10ml. sv 16:58 IV: 250ml; Total: 260ml. sv Outcome: 13:00 Decision to Hospitalize by Provider. jacqueline 19:34 Admitted to Med/surg accompanied by tech. lemos 19:34 Condition: stable 19:34 Discharge instructions given to patient, Instructed on the need for admit, Demonstrated understanding of instructions. 20:13 Patient left the ED. aminta NIH Stroke Scale - NIH Stroke Score Date: 01/06/2021 Time: 12:36 Total Score = 9 1a. Level of Consciousness (LOC) - 0(Alert) 1b. Level of Consciousness (LOC) (Month \\T\\ Age) - 2(Neither) 1c. LOC Commands (Open \\T\\ Closes Eyes/Public Health Worker) - 0(Both) 2. Best Gaze (Lateral Gaze Paresis) - 0(Normal) 3. Visual Field Loss - 0(No visual loss) 4. Facial Palsy - 0(Normal) 5a. Left Arm: Motor (10-second hold) - 2(Drift, some effort against gravity) 5b. Right Arm: Motor (10-second hold) - 0(No drift) 6a. Left Leg: Motor (5-second hold - always test supine) - 3(No effort against gravity) 6b. Right Leg: Motor (5-second hold - always test supine) - 0(No drift) 7. Limb Ataxia (finger/nose \\T\\ heel/cruz - test with eyes open) - 0(Absent) 8. Sensory Loss (pinprick arms/legs/face) - 0(Normal) 9. Best Language: Aphasia (description/naming/reading) - 1(Mild to moderate aphasia) 10. Dysarthria (speech clarity - read or repeat words) - 1(Mild to Moderate) 11. Extinction and Inattention (visual/tactile/auditory/spatial/personal) - 0(No abnormality) Initials: jacqueline Signatures: Dispatcher [employer] Swati Dial, RN CHRISTOPHE Melissa Roth RN RN iw Tate Stanley PA PA jr8 Gladys Zarco RN RN Raeann Worley, RN Mauri Pollock ea mw2 Corrections: (The following items were deleted from the chart) 10:35 10:34 BP 106 / 64; Pulse 104bpm; Resp 16bpm; Spontaneous; Pulse Ox 96% RA; iw iw 16:51 16:19 BP 101 / 75; Pulse 109bpm; Resp 19bpm; Pulse Ox 99% RA; hb sv
--- NOTE | 2021-01-06 13:00 | EDPHYS ---
Physician Documentation [facility] Name: Jermaine Rivera Age: 45 yrs Sex: Male : 1975 Arrival Date: 01/06/2021 Time: 10:12 Bed 5 Private MD: ED Physician Riley Stovall HPI: 01/06 12:36 This 45 yrs old Black Male presents to ER via EMS with complaints of S/S of Possible jr8 Stroke. 12:36 The patient presents with confusion, decreased mental status. Onset: The jr8 symptoms/episode began/occurred acutely, today. Possible causes: CVA or TIA, also reports dysphasia. Associated signs and symptoms: Pertinent positives: fever. Current symptoms: In the emergency department the patient's symptoms are unchanged from the initial presentation. Patient's baseline: Neuro: alert and fully oriented, Motor: left-sided weakness, Speech: normal. It is unknown whether or not the patient has had similar symptoms in the past. The patient has been recently seen by a physician:. Patient was seen yesterday for diarrhea and general weakness. Patient was worked up in the emergency room and found to have fever with infectious findings on blood work. Intent was to admit patient for further evaluation and antibiotic therapy but refused and left AGAINST MEDICAL ADVICE. Family stated that they called EMS again this morning because patient now was altered and appeared to be having worsening neurologic deficits. Patient has a history of stroke in the past with left-sided weakness but was more pronounced today and was having aphasia.. Historical: - Allergies: 10:22 No Known Allergies; sv - PMHx: 10:22 CVA; sv - Immunization history:: Adult Immunizations unknown. - Social history:: Smoking status: unknown. ROS: 12:36 Constitutional: Positive for fever. jr8 12:36 Neuro: Positive for altered mental status, speech changes, weakness. 12:36 All other systems are negative. Exam: 12:36 Eyes: Pupils equal round and reactive to light, extra-ocular motions intact. Lids and jr8 lashes normal. Conjunctiva and sclera are non-icteric and not injected. Cornea within normal limits. Periorbital areas with no swelling, redness, or edema. ENT: Nares patent. No nasal discharge, no septal abnormalities noted. Tympanic membranes are normal and external auditory canals are clear. Oropharynx with no redness, swelling, or masses, exudates, or evidence of obstruction, uvula midline. Mucous membranes dry Neck: Trachea midline, no thyromegaly or masses palpated, and no cervical lymphadenopathy. Supple, full range of motion without nuchal rigidity, or vertebral point tenderness. No Meningismus. Cardiovascular: Tachycardic rate with a normal S1 and S2. No gallops, murmurs, or rubs. Normal PMI, no JVD. No pulse deficits. Respiratory: Lungs have equal breath sounds bilaterally, clear to auscultation and percussion. No rales, rhonchi or wheezes noted. No increased work of breathing, no retractions or nasal flaring. Abdomen/GI: Soft, non-tender, with normal bowel sounds. No distension or tympany. No guarding or rebound. No evidence of tenderness throughout. Back: No spinal tenderness. No costovertebral tenderness. Full range of motion. Skin: Warm, dry with normal turgor. Normal color with no rashes, no lesions, and no evidence of cellulitis. MS/ Extremity: Pulses equal, no cyanosis. Neurovascular intact. 12:36 Neuro: Orientation: to person, Mentation: able to follow commands, slow to respond, confused, Cranial nerves: CN I not tested, CN II- XII are normal as tested, extraocular movements are intact, Facial palsy and sensory deficits are absent. Speech is slowed, slurred, Tongue strength is normal, Cerebellar function: normal finger to nose testing, heel to cruz testing is normal, Motor: strength is 5/5 in the right arm and right leg, Sensation: no obvious gross deficits, seizure activity, is not displayed by the patient, Abnormal movements: there are no abnormal movements. Vital Signs: 10:34 BP 106 / 64; Pulse 104; Resp 16 S; Temp 100.5(TE); Pulse Ox 96% on R/A; iw 11:00 BP 110 / 71; Pulse 102; Resp 16; Pulse Ox 96% ; sv 12:00 BP 116 / 76; Pulse 100; Resp 15; Temp 98.9; Pulse Ox 100% on R/A; hb 13:35 BP 122 / 74; Pulse 92; Resp 15; Pulse Ox 99% on R/A; hb 14:45 BP 107 / 68; Pulse 106; Resp 14; Pulse Ox 100% ; sv 15:30 BP 115 / 75; Pulse 116; Resp 16; Pulse Ox 100% ; sv 16:19 BP 107 / 75; Pulse 109; Resp 19; Pulse Ox 99% on R/A; sv 17:00 BP 104 / 74; Pulse 112; Resp 16; Pulse Ox 99% ; sv 17:45 BP 125 / 99; Pulse 112; Resp 16; Pulse Ox 99% ; sv 18:30 BP 101 / 45; Pulse 116; Resp 19; Pulse Ox 98% on R/A; hb 20:13 BP 116 / 72; Pulse 113; Resp 18; Pulse Ox 99% ; ea NIH Stroke Scale Scores: 12:36 NIHSS Score: 9 jr8 MDM: 10:17 Patient medically screened. jr8 12:36 Differential Diagnosis: CVA, electrolyte abnormality, hypoglycemia, intracranial bleed, jr8 meningitis, overdose, pneumonia, sepsis, UTI, volume depletion. Data reviewed: vital signs, nurses notes, lab test result(s), EKG, radiologic studies, CT scan, plain films. Data interpreted: Pulse oximetry: on room air is 100 %. Interpretation: normal. Counseling: I had a detailed discussion with the patient and/or guardian regarding: the historical points, exam findings, and any diagnostic results supporting the discharge/admit diagnosis, lab results, radiology results, the need for further work-up and treatment in the hospital. 12:50 ED course: Patient continues to refuse MRI. Has been objecting to staying as well. jr8 Explained to him that he remains confused. Will admit for further evaluation. Mother and brother of patient has been up here and agrees that he is not himself and needs to be admitted. They have also talked to patient . 01/06 10:13 Order name: Basic Metabolic Panel; Complete Time: 10:55 01/06 10:13 Order name: CBC with Diff; Complete Time: 11:15 01/06 10:13 Order name: Protime (+inr); Complete Time: 10:53 01/06 10:13 Order name: Ptt, Activated; Complete Time: 10:53 01/06 10:24 Order name: Troponin (emerg Dept Use Only); Complete Time: 11:15 [facility] 01/06 10:24 Order name: BNP; Complete Time: 11:15 [facility] 01/06 10:25 Order name: Magnesium; Complete Time: 11:15 01/06 10:27 Order name: Glucose, Ancillary Testing; Complete Time: 10:30 EDMS 01/06 10:33 Order name: Blood Culture Adult (2) 01/06 10:33 Order name: Procal; Complete Time: 12:29 01/06 10:53 Order name: Lactate; Complete Time: 11:42 01/06 11:02 Order name: Manual Differential; Complete Time: 11:15 EDMS 01/06 11:16 Order name: Urine Microscopic Only 01/06 12:56 Order name: UDS; Complete Time: 14:19 iw 01/06 10:13 Order name: CT Stroke Brain w/o Contrast; Complete Time: 10:53 sv 01/06 10:13 Order name: Stroke CXR 1 View; Complete Time: 11:15 sv 01/06 10:13 Order name: EKG; Complete Time: 10:13 sv 01/06 10:13 Order name: Accucheck; Complete Time: 10:24 sv 01/06 10:13 Order name: Cardiac monitoring; Complete Time: 10:24 sv 01/06 10:13 Order name: EKG - Nurse/Tech; Complete Time: 10:51 sv 01/06 10:13 Order name: IV Saline Lock; Complete Time: 10:24 sv 01/06 10:13 Order name: Labs collected and sent; Complete Time: 10:24 sv 01/06 10:13 Order name: NPO; Complete Time: 10:24 sv 01/06 10:13 Order name: O2 Per Protocol; Complete Time: 10:24 sv 01/06 10:30 Order name: MRI - Brain Wo Cont 01/06 10:13 Order name: O2 Sat Monitoring; Complete Time: 10: sv 01/06 10:13 Order name: Stroke Swallow Screen; Complete Time: 10:51 sv Administered Medications: 11:15 Drug: Cefepime 1 grams Route: IVPB; Rate: 200 ml/hr; Infused Over: 30 mins; Site: right iw antecubital; 11:18 Follow up: Response: No adverse reaction; IV Status: Completed infusion; IV Intake: 10mlsv 11:23 Drug: Tylenol 1000 mg Route: PO; iw 12:00 Follow up: Response: No adverse reaction sv 12:00 Drug: vancoMYCIN 1 grams Route: IVPB; Infused Over: 2 hrs; Site: right antecubital; hb 13:23 Drug: Ativan (LORazepam) 1 mg Route: IVP; Site: right antecubital; sv 14:36 Follow up: Response: No adverse reaction sv 16:39 Drug: NS 0.9% 250 ml Route: IV; Rate: bolus; Site: right antecubital; sv 16:58 Follow up: Response: No adverse reaction; IV Status: Completed infusion; IV Intake: sv 250ml Point of Care Testing: Blood Glucose: 10:15 Blood Glucose: 104 mg/dL; sv Ranges: Critical Glucose Levels:Adult <50 mg/dl or >400 mg/dl <40 mg/dl or >180 mg/dl Disposition Summary: 01/06/21 13:00 Hospitalization Ordered Hospitalization Status: Inpatient Admission jr8 Provider: Stan Chaudhary Location: Telemetry/MedSurg (Inpatient) jr8 Condition: Fair jr8 Problem: new jr8 Symptoms: are unchanged jr8 Bed/Room Type: [facility] Room Assignment: 220(01/06/21 18:38) dw Diagnosis - Altered mental status, unspecified jr8 - Severe sepsis without septic shock jr8 Forms: - Medication Reconciliation Form jr8 - SBAR form jr8 NIH Stroke Scale - NIH Stroke Score Date: 01/06/2021 Time: 12:36 Total Score = 9 1a. Level of Consciousness (LOC) - 0(Alert) 1b. Level of Consciousness (LOC) (Month \T\ Age) - 2(Neither) 1c. LOC Commands (Open \T\ Closes Eyes/Risk Control Product Liability Director) - 0(Both) 2. Best Gaze (Lateral Gaze Paresis) - 0(Normal) 3. Visual Field Loss - 0(No visual loss) 4. Facial Palsy - 0(Normal) 5a. Left Arm: Motor (10-second hold) - 2(Drift, some effort against gravity) 5b. Right Arm: Motor (10-second hold) - 0(No drift) 6a. Left Leg: Motor (5-second hold - always test supine) - 3(No effort against gravity) 6b. Right Leg: Motor (5-second hold - always test supine) - 0(No drift) 7. Limb Ataxia (finger/nose \T\ heel/cruz - test with eyes open) - 0(Absent) 8. Sensory Loss (pinprick arms/legs/face) - 0(Normal) 9. Best Language: Aphasia (description/naming/reading) - 1(Mild to moderate aphasia) 10. Dysarthria (speech clarity - read or repeat words) - 1(Mild to Moderate) 11. Extinction and Inattention (visual/tactile/auditory/spatial/personal) - 0(No abnormality) Initials: jacqueline Addendum: 01/09/2021 06:48 Co-signature as Attending Physician, Riley Stovall MD I agree with the [facility] assessment and plan of care. Signatures: Dispatcher [employer] EDSwati Enamorado, RN RN Griselda Lutz RN RN dw Anderson, Corey, MD MD cha Williams, Irene RN Tate Richard PA PA jrGladys Godfrey, CHRISTOPHE SAEED Corrections: (The following items were deleted from the chart) 01/06 18:38 13:00 jacqueline abrams
[2021-01-06 13:46] LABS: Barbiturates NEGATIVE (NEGATIVE); Benzodiazepines NEGATIVE (NEGATIVE); Cocaine NEGATIVE (NEGATIVE); METHAMPHETAM NEGATIVE (NEGATIVE); Methadone NEGATIVE (NEGATIVE); Opiates NEGATIVE (NEGATIVE); Phencyclidine NEGATIVE (NEGATIVE); THC Cannibis NEGATIVE (NEGATIVE)
--- NOTE | 2021-01-06 15:51 | P.HP ---
Certification for Inpatient Patient admitted to: Inpatient With expected LOS: >2 Midnights Practitioner: I am a practitioner with admitting privileges, knowledge of patient current condition, hospital course, and medical plan of care. Services: Services provided to patient in accordance with Admission requirements found in Title 42 Section 412.3 of the Code of Federal Regulations Patient History Date of Service: 01/06/21 Reason for admission: Altered mental status History of Present Illness: 45-year-old gentleman with a history of end-stage renal disease on hemodialysis was brought to the emergency department due to altered mental status. Patient was in the emergency department last night but left against medical advice. No seizures reported. Workup in the emergency department shows markedly elevated pro calcitonin, WBC count of 12,000, tachycardia and temperature of 100.5. Patient meets criteria for sepsis. Lactic acid level is normal. Patient with altered mental status and could not provide any history. Sepsis protocol initiated in the ED. He was given 250 mL normal saline bolus. He is admitted for further management. Allergies No Known Allergies Allergy (Verified 11/04/17 08:13) Home Medications: Hydralazine HCl [Apresoline] 100 mg PO TID 11/04/17 Metoprolol Succinate [Toprol Xl*] 50 mg PO BID 11/04/17 Nifedipine [Nifedipine ER] 90 mg PO BID 11/04/17 Terazosin HCl 10 mg PO BID 11/04/17 Sevelamer HCl [Renagel] 800 mg PO TID 02/04/18 minoxidiL [Loniten*] 2.5 mg PO DAILY 02/04/18 Clindamycin HCl 600 mg PO TID #21 capsule 02/08/18 Tramadol HCl [Ultram] 50 mg PO TID PRN #21 tablet 02/08/18 - Past Medical/Surgical History Diabetic: No -: Hypertension -: End-stage renal disease -: Diastolic CHF -: Anemia of chronic disease -: Thrombocytopenia -: pulmonary edema -: hx-afib- resolved -: Left foot sx -: dialysis access-right chest wall Psychosocial/ Personal History: The patient is single. He has 9 children. He does not work. He recently got out of [facility] in May of 2016. - Family History Mother -: Heart disease, Hypertension, Kidney disease - Social History Alcohol use: No CD- Drugs: No Caffeine use: No Review of Systems is unable to be obtained (Due to altered mental status) Physical Examination - Physical Exam General: Unresponsive HEENT: Other (Dry oral mucosa) Neck: Supple, JVD not distended Respiratory: Clear to auscultation bilaterally, Normal air movement Cardiovascular: No edema, Normal S1 S2, Other (Tachycardia) Gastrointestinal: Normal bowel sounds, Soft and benign, Non-distended, No tenderness Musculoskeletal: No contractures, Swelling (Right elbow reported as chronic.) Integumentary: No rashes, No erythema Neurological: Other (unresponse. He moves all extremities, no focal deficit.) Lymphatics: No axilla or inguinal lymphadenopathy - Studies Laboratory Data (last 24 hrs) 01/06/21 10:19: PT 14.9 H, INR 1.29, APTT 29.2 01/06/21 10:19: WBC 12.50 H D, Hgb 11.4 L, Hct 35.8 L, Plt Count 95 L 01/06/21 10:19: Sodium 136, Potassium 4.7, BUN 74 H D, Creatinine 12.60 H* D, Glucose 103 01/06/21 10:10: Magnesium 2.0 Assessment and Plan - Problems (Diagnosis) (1) Sepsis Current Visit: Yes Status: Acute (2) End-stage renal disease Onset Date: 10/21/17 Current Visit: No Status: Acute (3) Elevated troponin Current Visit: No Status: Acute - Plan Sepsis of unknown source. Admit to the medical floor. Sepsis protocol initiated Hydrate slowly IV normal saline. Aggressive antibiotic-cefepime and vancomycin. Follow cultures. Monitor vitals closely. Consult to nephrology-Dr. Lomeli. Elevated troponin likely secondary to decreased clearance from ESRD. Monitor troponin. - Advance Directives Does patient have a Living Will: No Does patient have a Durable POA for Healthcare: Yes
[2021-01-06] MEDS ORDERED: NA CHLORIDE 0.9% 250 ML ONE (16:53)
[2021-01-06] MEDS ORDERED: NA CHLORIDE 0.9% 500 ML IV ONE (20:20)
[2021-01-06] MEDS ORDERED: ONDANSETRON 4 MG/2 ML VIAL IV PRN (20:20)
[2021-01-06] MEDS ORDERED: CEFEPIME 2 GM VIAL IV SCH (20:20)
[2021-01-06] MEDS ORDERED: ACETAMINOPHEN 500 MG TAB PO PRN (20:20)
[2021-01-06 20:46] LABS: Arterial Blood Carboxyhemoglob 1.5 % (0-1.5); Blood Gas Oxyhemoglobin 93.1 % (94-97); Blood O2 Saturation 95.5 % (92-98.5)
[2021-01-06] MEDS ORDERED: NA CHLORIDE 0.9% 0 ML ONE (21:12)
[2021-01-06] MEDS: HEPARIN 5000 UNIT/ML 1 ML VIAL SQ SCH (21:27)
[2021-01-06] MEDS ORDERED: LORazepam 2 MG/ML VIAL IV ONE (21:48)
[2021-01-07] MEDS: HEPARIN 5000 UNIT/ML 1 ML VIAL SQ SCH (01:00)
[2021-01-07] MEDS ORDERED: HEPARIN 5000 UNIT/ML 1 ML VIAL SQ SCH (03:00)
[2021-01-07] MEDS ORDERED: METOPROLOL TARTRATE 5 MG/5 ML INJ IV STA ×2 (03:25→05:55)
[2021-01-07] MEDS ORDERED: DIGOXIN 0.25 MG/ML AMP IV ONE (04:03)
[2021-01-07] MEDS ORDERED: NA CHLORIDE 0.9% 250 ML IV ONE (05:36)
[2021-01-07 05:50] LABS: Absolute Lymphocytes (CBC) 0.3 K/uL (0.7-4.9); Basophils % 0.6 % (0-1.3); Hematocrit 33.3 % (39.6-49.0); MPV 8.4 fL (7.6-11.3); RBC Red Blood Cell Count 3.89 M/uL (4.33-5.43)
[2021-01-07] MEDS ORDERED: DILTIAZEM INJ 125 MG in NA CHLORIDE 0.9% 100 ML IVPB PRN (06:03)
--- NOTE | 2021-01-07 06:06 | P.PN ---
Date of Service: 01/07/21 Patient with tachycardia this morning, combination PAC/A. fib RVR/SVT periodically with rates between 110 and 180. Given multiple rounds of Lopressor IV/1 dose of digoxin 0.5 IV. Blood pressure has maintained around 100-110 systolic throughout this time. Patient appears to be decompensating, second troponin was elevated as well at 2. Started on heparin drip, case was discussed with hospitalist attending recommendation for Cardizem drip as well, this has been ordered. Case discussed with joss house keeper will transfer patient to ICU for higher level of care. Patient may also need additional access, hospitalist attending to discuss case further with general surgery. Cardiology has also been consulted.
[2021-01-07] MEDS: HEPARIN/D5W 25,000 UNIT/500 ML BAG IV SCH (06:10)
[2021-01-07 06:11] LABS: Albumin 2.2 g/dL (3.4-5.0); Bilirubin Total 0.6 mg/dL (0.2-1.0); Potassium 5.2 mmol/L (3.5-5.1); Protein, Total 5.8 g/dL (6.4-8.2)
[2021-01-07 07:49] VITALS: BMI 24.3
[2021-01-07 08:50] LABS: Magnesium 2.3 mg/dL (1.8-2.4)
[2021-01-07] MEDS ORDERED: CEFEPIME 1 GM in WATER FOR INJ,STERILE 10 ML IV SCH (09:00)
[2021-01-07] MEDS ORDERED: VANCOMYCIN 1 GM in NA CHLORIDE 0.9% 250 ML IVPB SCH ×2 (09:00→13:00)
[2021-01-07] MEDS: CEFEPIME/SWI 1gm 10 ML IV SCH (09:46)
[2021-01-07] MEDS ORDERED: CEFEPIME/SWI 1gm 10 ML ONE (09:50)
--- NOTE | 2021-01-07 11:11 | P.CNS ---
Date of Consult: 01/06/21 Reason for Consult: ESRD Requesting Physician: taya kamara Chief Complaint: Altered mental status History of Present Illness: 45-year-old gentleman with a history of end-stage renal disease on hemodialysis was brought to the emergency department due to altered mental status. Patient was in the emergency department last night but left against medical advice. No seizures reported. Workup in the emergency department shows markedly elevated pro calcitonin, WBC count of 12,000, tachycardia and temperature of 100.5. Patient meets criteria for sepsis. Lactic acid level is normal. Patient with altered mental status and could not provide any history. Sepsis protocol initiated in the ED. He was given 250 mL normal saline bolus. He is admitted for further management. 12:36 This 45 yrs old Black Male presents to ER via EMS with complaints of S/S of Possible jr8 Stroke. 12:36 The patient presents with confusion, decreased mental status. Onset: The jr8 symptoms/episode began/occurred acutely, today. Possible causes: CVA or TIA, also reports dysphasia. Associated signs and symptoms: Pertinent positives: fever. Current symptoms: In the emergency department the patient's symptoms are unchanged from the initial presentation. Patient's baseline: Neuro: alert and fully oriented, Motor: left-sided weakness, Speech: normal. It is unknown whether or not the patient has had similar symptoms in the past. The patient has been recently seen by a physician:. Patient was seen yesterday for diarrhea and general weakness. Patient was worked up in the emergency room and found to have fever with infectious findings on blood work. Intent was to admit patient for further evaluation and antibiotic therapy but refused and left AGAINST MEDICAL ADVICE. Family stated that they called EMS again this morning because patient now was altered and appeared to be having worsening neurologic deficits. Patient has a history of stroke in the past with left-sided weakness but was more pronounced today and was having aphasia.. Allergies No Known Allergies Allergy (Verified 11/04/17 08:13) Home medications list reviewed: Yes Home Medications: Hydralazine HCl [Apresoline] 100 mg PO TID 11/04/17 Metoprolol Succinate [Toprol Xl*] 50 mg PO BID 11/04/17 Nifedipine [Nifedipine ER] 90 mg PO BID 11/04/17 Terazosin HCl 10 mg PO BID 11/04/17 Sevelamer HCl [Renagel] 800 mg PO TID 02/04/18 minoxidiL [Loniten*] 2.5 mg PO DAILY 02/04/18 Clindamycin HCl 600 mg PO TID #21 capsule 02/08/18 Tramadol HCl [Ultram] 50 mg PO TID PRN #21 tablet 02/08/18 - Past Medical/Surgical History Diabetic: No -: Hypertension -: End-stage renal disease -: Diastolic CHF -: Anemia of chronic disease -: Thrombocytopenia -: pulmonary edema -: hx-afib- resolved -: Dialysis access placement-rt chest wall -: dialysis access-right chest wall Psychosocial/ Personal History: The patient is single. He has 9 children. He does not work. He recently got out of [facility] in May of 2016. - Family History Mother Medical History: Heart disease Father History Unknown: Yes - Social History Smoking Status: Unknown if ever smoked Alcohol use: No CD- Drugs: No Caffeine use: Yes Place of Residence: Home Review of Systems 10-point ROS is otherwise unremarkable General: Malaise Neurological: Confusion Physical Examination Temp Pulse Resp BP Pulse Ox 100.3 F 127 H 36 H 114/68 98 01/07/21 08:00 01/07/21 11:00 01/07/21 11:00 01/07/21 11:00 01/07/21 11:00 General: Moderate distress, Delirious, Other (Not cooperative) HEENT: Atraumatic Neck: Supple Respiratory: Clear to auscultation bilaterally Cardiovascular: No edema, Regular rate/rhythm, Systolic murmur Gastrointestinal: Soft and benign, Non-distended Musculoskeletal: No clubbing, No contractures Integumentary: No rashes, No cyanosis, Skin lesion Neurological: Normal speech Laboratory Data (last 24 hrs) 01/06/21 10:10: Magnesium 2.0 Imagings Data: EXAM DESCRIPTION: [facility] Single View01/06/2021 10:56 am CLINICAL HISTORY: Code stroke/cardiomegaly COMPARISON: January 05, 2021 FINDINGS: Mild bilateral pulmonary opacities. Marked cardiomegaly. Central venous catheter in place IMPRESSION: Mild pulmonary edema EXAM DESCRIPTION: CT - Ct Stroke Brain Wo Cont - 01/06/2021 10:24 am CLINICAL HISTORY: Left-sided weakness COMPARISON: 2018 TECHNIQUE: Computed axial tomography of the head was obtained. All CT scans are performed using dose optimization technique as appropriate and may include automated exposure control or mA/KV adjustment according to patient size. FINDINGS: An intracranial bleed is not seen . The ventricles are normal in caliber. No extra-axial fluid collection is noted. Low-density within the right cerebrum secondary to an old bleed. Mild low-density areas within deep and subcortical white matter presumably chronic. Fluid within the sinuses/ mastoids is not seen. IMPRESSION: No acute intracranial abnormality is seen. If patient's symptoms persist MRI of the brain would be recommended. Conclusions/Impression: ESRD on HD -Arrange for acute HD Saturday Hyperkalemia -HD TIW -Renal diet HTN with CKD/ CHF complicated by hypotension -IVF bolus as needed Diastolic CHF, chronic -Low sodium diet -Daily weight Moderate malnutrition -Encourage nutrition -Start Nepro Anemia in chronic illness -Start Retacrit GRAY/ Secondary HyperPTH -Start Vitamin D3 and Calcitriol Sepsis with GPC -Follow up culture -Continue Vanco and Cefepime Thank you kindly for the consultation. Case reviewed with the ER provider.
--- NOTE | 2021-01-07 11:57 | P.PN ---
Date of Service: 01/07/21 Vital Signs Temp Pulse Resp BP Pulse Ox 100.3 F 127 H 36 H 114/68 98 01/07/21 08:00 01/07/21 11:00 01/07/21 11:00 01/07/21 11:00 01/07/21 11:00 Medications Acetaminophen (Acetaminophen 500 Mg Tab) 500 mg PO Q4HP PRN PRN Reason: TEMP > 100' F Heparin Sodium (Porcine) (Heparin 1,000 Unit/Ml Vial) 0 unit IV PRN PRN PRN Reason: Heparin Re-Bolus Per Protocol Last Admin: 01/07/21 11:07 Dose: 3,000 unit Documented by: Vancomycin HCl 1 gm/ Sodium (Chloride) 250 mls @ 125 mls/hr IVPB Q48H [facility]; Protocol Heparin Sodium/Dextrose (Heparin Drip 25,000 Units/5oo Ml Premix) 25,000 unit in 500 mls @ 0 mls/hr IV UD [facility]; Protocol Last Admin: 01/07/21 06:10 Dose: 500 mls Documented by: Diltiazem HCl 125 mg/ Sodium (Chloride) 125 mls @ 5 mls/hr IVPB PRN PRN; Protocol PRN Reason: Hemodynamic Parameters Last Admin: 01/07/21 07:26 Dose: 125 mls Documented by: Cefepime HCl (Maxipime 1 Gm/10 Ml Ivp) 10 mls @ 60 mls/hr IV Q24H [facility] Last Admin: 01/07/21 09:46 Dose: 10 mls Documented by: Ondansetron HCl (Ondansetron 4 Mg/2 Ml Vial) 4 mg IV Q6HP PRN PRN Reason: NAUSEA / VOMITING Sodium Chloride (Flush Normal Saline 10 Ml) 10 ml IV BID [facility] Last Admin: 01/07/21 09:47 Dose: 10 ml Documented by: Lab Results (last 24 hrs) 01/06/21 13:22: Opiates Screen Negative, Methadone Screen Negative, Ur Barbiturates Screen Negative, Ur Phencyclidine Scrn Negative, Amphetamines Screen Negative, Benzodiazepines Screen Negative, Cocaine Screen Negative, Ur THC Screen Negative 01/06/21 11:16: Urine RBC Cancelled, Urine WBC Cancelled, Ur Squamous Epith Cells Cancelled, Ur Urothelial Cells Cancelled, Calcium Oxalate Crystal Cancelled, Uric Acid Crystals Cancelled, Triple Phos Crystals Cancelled, Other Crystals Cancelled, Amorphous Sediment Cancelled, Glitter Cells Cancelled, Urine Bacteria Cancelled, Hyaline Casts Cancelled, Fine Granular Casts Cancelled, Coarse Granular Casts Cancelled, Waxy Casts Cancelled, RBC Casts Cancelled, WBC Casts Cancelled, Urine Mucus Cancelled, Urine Other Cancelled, Urine Trichomonas Cancelled, Urine Yeast Cancelled, Ur Yeast w Hyphae Cancelled, Urine Yeast (Budding) Cancelled, Urine Sperm Cancelled, Urine Culture Reflexed Cancelled, Urine Total Volume Cancelled 01/06/21 10:45: Procalcitonin 106.60 H Microbiology Results 01/06/21 11:00 Blood - Blood Aerobic Blood Culture - Preliminary 01/06/21 11:00 Blood - Blood Blood Culture Gram Stain - Preliminary 01/06/21 11:00 Blood - Blood Anaerobic Blood Culture - Preliminary 01/06/21 11:00 Blood - Blood Gram Stain - Preliminary 01/06/21 10:45 Blood - Blood Aerobic Blood Culture - Preliminary 01/06/21 10:45 Blood - Blood Blood Culture Gram Stain - Preliminary 01/06/21 10:45 Blood - Blood Anaerobic Blood Culture - Preliminary 01/06/21 10:45 Blood - Blood Gram Stain - Preliminary Assessment/ Plan: Nephrology Limited IH/ ROS due to delirium. Rapid heart rate Restless Vitals, medications, blood work and imaging reviewed in the chart. General: Moderate distress, Delirious HEENT: Atraumatic Neck: Supple Respiratory: Clear to auscultation bilaterally Cardiovascular: No edema, Regular rate/rhythm, Systolic murmur Gastrointestinal: Soft and benign, Non-distended Musculoskeletal: No clubbing, No contractures Integumentary: No rashes, No cyanosis, Skin lesion Neurological: Normal speech Greater than 30min patient care Laboratory Data (last 24 hrs) 01/06/21 10:10: Magnesium 2.0 Imagings Data: EXAM DESCRIPTION: [facility] Single View01/06/2021 10:56 am CLINICAL HISTORY: Code stroke/cardiomegaly COMPARISON: January 05, 2021 FINDINGS: Mild bilateral pulmonary opacities. Marked cardiomegaly. Central venous catheter in place IMPRESSION: Mild pulmonary edema EXAM DESCRIPTION: CT - Ct Stroke Brain Wo Cont - 01/06/2021 10:24 am CLINICAL HISTORY: Left-sided weakness COMPARISON: 2018 TECHNIQUE: Computed axial tomography of the head was obtained. FINDINGS: An intracranial bleed is not seen . The ventricles are normal in caliber. No extra-axial fluid collection is noted. Low-density within the right cerebrum secondary to an old bleed. Mild low-density areas within deep and subcortical white matter presumably chronic. Fluid within the sinuses/ mastoids is not seen. IMPRESSION: No acute intracranial abnormality is seen. If patient's symptoms persist MRI of the brain would be recommended. Conclusions/Impression: ESRD on HD -Arrange for acute HD today Hyperkalemia -HD TIW -Renal diet HTN with CKD/ CHF complicated by hypotension Rapid Afib -IVF bolus as needed -Cardiology to evaluate Diastolic CHF, chronic -Low sodium diet -Daily weight Moderate malnutrition -Encourage nutrition Anemia in chronic illness -Start Retacrit GRAY/ Secondary HyperPTH -Start Vitamin D3 and Calcitriol Sepsis/ Septic Shock with GPC -Follow up cultures -Continue Vanco and Cefepime -Start gentle IVF -IVF bolus prn -Check echocardiogram Case reviewed with Dr. Chaudhary
[2021-01-07] MEDS ORDERED: D5 0.9 NS 1,000 ML IV SCH (12:00)
[2021-01-07] MEDS ORDERED: MANNITOL 25% 12.5 GM/50 ML VIAL IV PRN (12:01)
[2021-01-07] MEDS ORDERED: NA CHLORIDE 0.9% 1,000 ML IV PRN (12:01)
[2021-01-07] MEDS ORDERED: ALBUMIN HUMAN 25% 100 ML IV ONE ×2 (12:08→13:53)
[2021-01-07] MEDS ORDERED: ALBUMIN HUMAN 25% 50 ML IV SCH (13:00)
[2021-01-07] MEDS ORDERED: D5 0.9 NS 1,000 ML IV ONE (13:24)
--- NOTE | 2021-01-07 14:28 | P.PN ---
Subjective Date of Service: 01/07/21 Chief Complaint: Altered mental status Patient remained confused. He went to atrial fibrillation last night. Also has frequent PVC and occasional nonsustained VT. He has intermittent fever. Physical Examination - Vital Signs Temperature: 100.3 F Blood Pressure: 103/65 Pulse: 100 Respirations: 32 Pulse Ox (%): 98 - Physical Exam General: Unresponsive HEENT: Other (Dry mouth) Neck: Supple, JVD not distended Respiratory: Clear to auscultation bilaterally, Normal air movement Cardiovascular: No edema, Irregular heart rate/rhythm, Systolic murmur Gastrointestinal: Soft and benign, Non-distended Musculoskeletal: Other (Swelling right elbow-chronic.) Integumentary: No rashes Neurological: Other (No focal motor deficit. Patient moves all his extremities spontaneously) Lymphatics: No axilla or inguinal lymphadenopathy Assessment And Plan - Current Problems (Diagnosis) (1) Sepsis Current Visit: Yes Status: Acute (2) End-stage renal disease Onset Date: 10/21/17 Current Visit: No Status: Acute (3) Elevated troponin Current Visit: No Status: Acute - Plan Sepsis of unknown source. Patient transferred to the ICU given atrial fibrillation and nonsustained VT. Blood pressure is soft. Continue IV cefepime and vancomycin. Troponin trended up to 2. Patient started on heparin drip. Also started on Cardizem drip for atrial fibrillation. Was switched Cardizem drip to amiodarone drip. Discussed volume status with nephrology-Dr. Lomeli. Patient is NPO. Dr. Lomeli plans intermittent boluses for fluid maintenance Blood cultures growing Gram positive cocci. Monitor vitals closely. Dr. Lomeli input appreciated. Hemodialysis per Dr. Lomeli. Obtain blood culture from the dialysis catheter Cardiology consulted for AFib, nonsustained VT and elevated troponin. Obtain echocardiogram.
[2021-01-07] MEDS ORDERED: LORazepam 2 MG/ML VIAL ONE ×2 (14:55→22:01)
[2021-01-07 16:00] LABS: Magnesium 2.3 mg/dL (1.8-2.4)
[2021-01-07] MEDS ORDERED: AMIODARONE HCL 150 MG in D5W 100 ML IV ONE (16:00)
--- NOTE | 2021-01-07 16:52 | CON ---
Date of Consultation: 01/07/2021 Reason For Consultation: [id number] myocardial infarction. History Of Present Illness: This is a 45-year-old male on hemodialysis, who was in the hospital rece ntly and signed out against medical advice. The patient has history of hypertension; end-stage renal disease, on hemodialysis; diastolic heart failure, anemia, presented with altered mental status, fou nd to be septic and was started on treatment for sepsis. The patient apparently was having runs of f ast atrial fibrillation with rapid ventricular response. He was started on a Cardizem drip. He also had multiple short runs of nonsustained ventricular tachycardia. The patient is altered and unable to get history from him. Past Medical History: As outlined above in HPI. Medications: Refer reconciliation sheet for detailed list. Allergies: NO KNOWN DRUG ALLERGIES. Social History: Smoker. Does not drink. Family History: No premature coronary artery disease or cancer. Review of Systems: All systems reviewed and they were negative except for mentioned in HPI. Physical Examination: Vital Signs: Reviewed. Head and Neck: Pupils are reactive to light. Mucous membranes are dry. Lungs: Decreased breathing sounds with rhonchi bilaterally. No accessory muscle use or muscle retra ction. Heart: Irregularly irregular. No extra sounds. Abdomen: Soft. Bowel sounds positive. No rigidity or rebound. Extremities: No clubbing or cyanosis. Skin: No rashes. Neuro: He is altered. Moving all extremities. Lymph Nodes: No cervical or axillary lymphadenopathy. Investigations: Troponin peaked at 2.07, so far creatinine is 14. White blood cell count is 14.5, h emoglobin 10.8. Assessment And Recommendations: 1.Atrial fibrillation with rapid ventricular response. I will discontinue Cardizem drip and start h im on amiodarone load with 150 mg over 10 minutes and then 1 mg/minute for 6 hours and then 0.5 mg/mi nute for 16 hours. 2.Shc-JE-efipwyjow myocardial infarction. Recommend full anticoagulation with heparin, aspirin thro ugh an NG tube or rectally and monitor troponins further. Keep trending them until they trend down. This could be demand ischemia. However, the patient could be also a coronary artery disease as he h as significant risk factors. At this point, I recommend once the sepsis condition is under control, we will proceed with coronary angiogram. Meanwhile, we will treat medically unless the patient's con dition becomes unstable. 3.Ventricular tachycardia, short runs. It could be a combination of the sepsis and the [id number] tion NE. We are using amiodarone for now to control the heart rate and hopefully prevent further sonia tricular tachycardia episodes. Please maintain potassium level above 4 and magnesium above 2, and tr end the cardiac troponins further until they trend down. Thank you for the consult. /ANTHONY Voice ID: [id number] Report ID: [id number]
[2021-01-07] MEDS: AMIODARONE HCL 900 MG in Dextrose 5%-Water 482 ML IV SCH (17:05)
[2021-01-07] MEDS ORDERED: ACETAMINOPHEN 500 MG TAB ONE (21:15)
[2021-01-07] MEDS: LORazepam 2 MG/ML VIAL IV PRN (21:41)
[2021-01-07] MEDS ORDERED: HEPARIN 5000 UNIT/ML 1 ML VIAL ONE (22:33)
[2021-01-08] MEDS ORDERED: METOPROLOL TARTRATE 5 MG/5 ML INJ IV STA ×2 (02:27→05:04)
[2021-01-08] MEDS ORDERED: METOPROLOL TARTRATE 5 MG/5 ML INJ IV ONE ×2 (02:47→05:24)
[2021-01-08] MEDS: LORazepam 2 MG/ML VIAL IV PRN ×2 (04:35→22:50)
[2021-01-08] MEDS ORDERED: LORazepam 2 MG/ML VIAL ONE ×2 (04:56→23:10)
[2021-01-08 05:07] LABS: Absolute Lymphocytes (CBC) 0.4 K/uL (0.7-4.9); Basophils % 0.1 % (0-1.3); Hematocrit 32.9 % (39.6-49.0); Lymphocytes % 2.6 % (15.3-44.8); MPV 8.5 fL (7.6-11.3); RBC Red Blood Cell Count 3.84 M/uL (4.33-5.43)
[2021-01-08 05:35] LABS: Albumin 2.1 g/dL (3.4-5.0); Phosphorus 6.8 mg/dL (2.5-4.9)
[2021-01-08] MEDS: ACETAMINOPHEN 650MG/RECT SUPP PR PRN ×2 (07:52→17:48)
[2021-01-08] MEDS ORDERED: ACETAMINOPHEN 650MG/RECT SUPP PR ONE ×2 (08:14→17:48)
[2021-01-08] MEDS: AMIODARONE HCL 900 MG in Dextrose 5%-Water 482 ML IV SCH (08:41)
[2021-01-08] MEDS: HEPARIN/D5W 25,000 UNIT/500 ML BAG IV SCH (08:41)
[2021-01-08] MEDS ORDERED: CEFEPIME/SWI 1gm 10 ML ONE (09:11)
[2021-01-08] MEDS: CEFEPIME/SWI 1gm 10 ML IV SCH (09:27)
--- NOTE | 2021-01-08 09:57 | RAD REPORT ---
EXAM DESCRIPTION: RAD - Chest Single View - 01/08/2021 9:45 am CLINICAL HISTORY: Hypoxia Chest pain. COMPARISON: Chest Single View dated 01/06/2021; Chest Single View dated 01/05/2021; Chest Single View dated 03/21/2019; Chest Single View dated 03/15/2019 FINDINGS: Portable technique limits examination quality. Significant asymmetric lung opacity is present, greater on the right, most compatible with asymmetric pulmonary edema. The heart is enlarged in size. Left-sided venous catheter has tip in the SVC. IMPRESSION: Worsening in lung aeration is seen with significant asymmetric pulmonary edema suspected involving the right lung.
[2021-01-08 10:42] LABS: Arterial Blood Carboxyhemoglob 1.6 % (0-1.5); Blood Gas Oxyhemoglobin 86.1 % (94-97); Blood O2 Saturation 88.5 % (92-98.5)
--- NOTE | 2021-01-08 16:17 | P.PN ---
Subjective Date of Service: 01/08/21 Chief Complaint: Altered mental status Patient remain unresponsive. He is in atrial fibrillation with a rate from 110 to 120. Blood pressure is soft. Also has frequent PVC and occasional nonsustained VT. He has intermittent fever. Patient coughing up blood this morning. Blood cultures growing coagulase positive Staph. Blood culture from the dialysis catheter growing Gram positive cocci. Physical Examination - Vital Signs Temperature: 99.8 F Blood Pressure: 99/73 Pulse: 115 Respirations: 44 Pulse Ox (%): 91 - Physical Exam General: Unresponsive HEENT: Other (Dry mucous membrane) Neck: JVD not distended Respiratory: Diminished, Crackles/rales (Bibasilar crackles) Cardiovascular: Normal S1 S2, Irregular heart rate/rhythm, Systolic murmur Gastrointestinal: Normal bowel sounds, Non-distended, No tenderness Musculoskeletal: No contractures, No tenderness Integumentary: No rashes Neurological: Other (Moves all extremities spontaneously.) Assessment And Plan - Current Problems (Diagnosis) (1) Sepsis Current Visit: Yes Status: Acute (2) End-stage renal disease Onset Date: 10/21/17 Current Visit: No Status: Acute (3) Elevated troponin Current Visit: No Status: Acute - Plan Patient growing Gram positive cocci/coagulase positive Staph. Continue IV cefepime and vancomycin. Follow blood cultures. Catheter-related bacteremia. Removed dialysis catheter per Dr. Lomeli. General surgery consulted for central line placement. Heparin drip discontinued due to hemoptysis. Chest x-ray shows dense opacity in the right lung. Suspecting pneumonia/infiltrate more than fluid. Patient currently requiring high-flow oxygen with 100% FiO2. Pulmonary consulted to assist with management. Infectious disease consulted for Gram positive bacteremia. He is on amiodarone drip for atrial fibrillation and nonsustained VT. Patient is NPO. Status post hemodialysis yesterday. Hemodialysis was stopped given patient's arrhythmia. Fluid boluses as needed. Patient may require Jame catheter if he need emergent hemodialysis Hemodialysis per Dr. Lomeli. Cardiology-Dr. Curran's input appreciated. Obtain echocardiogram.
[2021-01-08] MEDS ORDERED: BUPIVACAINE 0.5% PF 10 ML VIAL ONE (17:52)
--- NOTE | 2021-01-08 17:54 | P.CNS ---
Date of Consult: 01/08/21 PC: I was asked to see this 45-year-old male regards to having a dialysis catheter removed HPC: Patient apparently is septic, and the source was felt to be his dialysis catheter. Nephrology has requested its removal PSHx: Insertion of a dialysis catheter July PMHx: End-stage renal disease Social Hx: No known allergies O/E: Clinical appearance of sepsis, has bloodstained sputum HEENT: Within normal limits Chest: Has a left subclavian catheter that appears to have been placed supraclavicularly Abd: Negative [place]: No evidence of any clavicular fractures Impression: Sepsis due to possible infected catheter Plan: I have discussed this case with the medical physician. The patient is going to require intubation, as well as removal of this catheter and will require a central line. The central line [femoral line] was placed by our ER colleagues. He will be taken to the OR where he will be intubated and while a sleep, we can remove this catheter with appropriate conditions including lighting and instrumentation. We will also send the catheter for culture and sensitivity. The risks of this procedure was explained to his significant other. She understands and wants to proceed.
--- NOTE | 2021-01-08 18:14 | PN ---
Date of Progress Note: 01/08/2021 Subjective: The patient was seen by bedside. He is very lethargic, unable to answer questions. He has been febrile, tachypneic, hypoxic with borderline blood pressure. Heart rate has been running be tween 110 and 120 to 125. Still in AFib and still on amiodarone drip. Physical Examination: Vital Signs: Temperature is 99.8, heart rate 115, breathing at 44, blood pressure is 99/70, saturati ng 91% with high-flow oxygen. General: This is a young male, appears ill. Head and Neck: Pupils are equal, reactive to light. Intact eye movements. No JVD. No cervical lym phadenopathy. Neck: Supple. Thyroid is not enlarged. Lungs: Rhonchi bilaterally. No accessory muscle use or muscle retraction. Heart: Irregularly irregular. Tachycardiac. Abdomen: Soft, nontender. Bowel sounds positive. No organomegaly. No masses or hernia. No rigidi ty or rebound. Extremities: No clubbing, cyanosis. Skin: No rashes. Neuro: He is very lethargic. Unable to examine further due to mental status. Investigations: No further troponins were done after the last one that was reported as 1.19. His bl ood cultures are all positive and likely it is line sepsis. Assessment And Recommendations: 1.Elevated troponin suggestive of non-ST elevation myocardial infarction. This could be demand isch emia. Please obtain another troponin now until it trends down and obtain echocardiogram. We will co ntinue efforts to try to control his heart rate; however, his heart rate is being affected significan tly with the sepsis status. Continue aspirin rectally and the patient started to have hemoptysis, so heparin was held. We will plan to do a complete ischemic workup on this patient once the sepsis con dition is cleared and his blood cultures are sterilized. 2.Atrial fibrillation. Rate is acceptable for now. Continue amiodarone drip and please obtain live r function tests on daily basis. Again, obtain liver function tests on a daily basis while on amioda dania drip. Thank you for allowing me to help care for your patient. SR/MODL Voice ID: [id number] Report ID: [id number]
[2021-01-08] MEDS ORDERED: SUCCINYLCHOLINE 20 MG/ML (10 ML) IV ONE (18:23)
[2021-01-08] MEDS ORDERED: propofoL 200 MG/20 ML VIAL IV ONE (18:25)
[2021-01-08] MEDS ORDERED: FENTANYL CITR 100 MCG/2 ML ONE ×2 (18:25→20:04)
--- NOTE | 2021-01-08 18:40 | P.OP ---
Preoperative diagnosis: Sepsis Postoperative diagnosis: Sepsis Primary procedure: Removal of left tunneled subclavian Dialysis catheter Secondary procedure: Intubating patient Anesthesia: General Estimated blood loss: Less than 10 cc Specimen: Tip of catheter sent for culture and sensitivity Operative Technique: The patient brought to the operating room on a rebreather mask. While on the transfer bed, the patient was intubated under general anesthesia by the anesthesiologist. The endotracheal tube having been placed, and is position clinically confirmed, the area of the left clavicular area neck and chest was prepped with a DuraPrep solution and draped in the usual manner. The insertion site was inspected. An old suture was removed. The area was now infiltrated with 0.25% Marcaine. A skin incision was made just at the junction of the catheter with the skin. Here we encountered the cuff that was helping to hold it in position. The cuff was dissected free from the surrounding tissue. The catheter was now removed. Attention was turned back towards the insertion site. There was some chronic granulation tissue in that area. It was treated with electrocautery. The skin was then loosely approximated with an interrupted suture of 2-0 chromic. Adequate hemostasis having been achieved, a sterile dressing was applied. He was stable, intubated, when discharged from the OR. Complications: None Transferred to: ICU Condition: Serious
[2021-01-08] MEDS ORDERED: ROCURONIUM 50 MG/5 ML VIAL IV ONE (19:04)
[2021-01-08] MEDS ORDERED: HALOPERIDOL LACT 5 MG/ML INJ IV PRN (19:15)
[2021-01-08] MEDS ORDERED: MIDAZOLAM HCL 2 MG/2 ML INJ IV PRN (19:15)
[2021-01-08] MEDS ORDERED: NA CHLORIDE 0.9% 1,000 ML ONE (19:42)
[2021-01-08] MEDS: FENTANYL CITR 100 MCG/2 ML IV PRN (19:43)
[2021-01-08] MEDS ORDERED: FAMOTIDINE 20 MG/2 ML VIAL IV ONE (20:00)
--- NOTE | 2021-01-08 20:05 | RAD REPORT ---
EXAM DESCRIPTION: RAD - Chest Single View - 01/08/2021 7:42 pm CLINICAL HISTORY: Patient was intubated Chest pain. COMPARISON: Chest Single View dated 01/08/2021; Chest Single View dated 01/06/2021; Chest Single View d ated 01/05/2021; Chest Single View dated 03/21/2019 FINDINGS: Portable technique limits examination quality. Tip of the endotracheal tube is at the level of the superior aortic arch. Enteric tube tip is proxima l stomach near the esophagogastric junction. Asymmetric bilateral pulmonary opacities are noted, sign ificantly greater on the right. Heart is moderately enlarged.
--- NOTE | 2021-01-08 20:17 | P.PN ---
Date of Service: 01/08/21 Vital Signs Temp Pulse Resp BP Pulse Ox 100.5 F 135 H 30 H 110/67 99 01/08/21 17:48 01/08/21 18:00 01/08/21 19:43 01/08/21 18:00 01/08/21 19:43 Medications Acetaminophen (Acetaminophen 500 Mg Tab) 500 mg PO Q4HP PRN PRN Reason: TEMP > 100' F Last Admin: 01/07/21 21:00 Dose: 500 mg Documented by: Acetaminophen (Acetaminophen 650mg/Rect Supp) 650 mg IL Q6H PRN PRN Reason: TEMP > 100' F Last Admin: 01/08/21 17:48 Dose: 650 mg Documented by: Famotidine (Famotidine 20 Mg/2 Ml Vial) 20 mg IV BID MADHAV Fentanyl Citrate (Fentanyl Citr 100 Mcg/2 Ml) 25 mcg IV Q4HP PRN PRN Reason: Pain scale 8-10 (Severe) Last Admin: 01/08/21 19:43 Dose: 25 mcg Documented by: Haloperidol Lactate (Haloperidol Lact 5 Mg/Ml Inj) 2 mg IV Q4HP PRN PRN Reason: AGITATION Heparin Sodium (Porcine) (Heparin 1,000 Unit/Ml Vial) 0 unit IV PRN PRN PRN Reason: Heparin Re-Bolus Per Protocol Last Admin: 01/08/21 05:59 Dose: 3,000 unit Documented by: Heparin Sodium (Porcine) (Heparin 1,000 Unit/Ml Vial) 6,000 unit IV EVERY HD PRN PRN Reason: AFTER EACH Heparin Sodium/Dextrose (Heparin Drip 25,000 Units/5oo Ml Premix) 25,000 unit in 500 mls @ 0 mls/hr IV UD MADHAV; Protocol Last Admin: 01/08/21 08:41 Dose: 500 mls Documented by: Cefepime HCl (Maxipime 1 Gm/10 Ml Ivp) 10 mls @ 60 mls/hr IV Q24H MADHAV Last Admin: 01/08/21 09:27 Dose: 10 mls Documented by: Albumin Human (Albumin 25%) 50 mls @ 100 mls/hr IV EVERY HD MADAHV Vancomycin HCl 1 gm/ Sodium (Chloride) 250 mls @ 125 mls/hr IVPB EVERY HD MADHAV; Protocol Last Admin: 01/07/21 18:42 Dose: 250 mls Documented by: Amiodarone HCl 900 mg/ (Dextrose) 500 mls @ 0 mls/hr IV CONT MADHAV; Protocol Last Admin: 01/08/21 08:41 Dose: 500 mls Documented by: Lorazepam (Lorazepam 2 Mg/Ml Vial) 2 mg IV Q2HP PRN PRN Reason: SEDATION Mannitol (Mannitol 25% 12.5 Gm/50 Ml Vial) 12.5 gm IV EVERY HD PRN PRN Reason: Titrate to SBP (MUST DEFINE) Midazolam HCl (Midazolam Hcl 2 Mg/2 Ml Inj) 2 mg IV Q2HP PRN PRN Reason: SEDATION Ondansetron HCl (Ondansetron 4 Mg/2 Ml Vial) 4 mg IV Q6HP PRN PRN Reason: NAUSEA / VOMITING Sodium Chloride (Flush Normal Saline 10 Ml) 10 ml IV BID [facility] Last Admin: 01/08/21 07:53 Dose: 10 ml Documented by: Microbiology Results 01/06/21 11:00 Blood - Blood Aerobic Blood Culture - Preliminary 01/06/21 11:00 Blood - Blood Blood Culture Gram Stain - Preliminary 01/06/21 11:00 Blood - Blood Anaerobic Blood Culture - Preliminary 01/06/21 11:00 Blood - Blood Gram Stain - Preliminary 01/06/21 10:45 Blood - Blood Aerobic Blood Culture - Preliminary 01/06/21 10:45 Blood - Blood Blood Culture Gram Stain - Preliminary 01/06/21 10:45 Blood - Blood Anaerobic Blood Culture - Preliminary 01/06/21 10:45 Blood - Blood Gram Stain - Preliminary Assessment/ Plan: Nephrology/ ICU Limited IH/ ROS due to intubation. Intubated today due to worsening dyspnea Vitals, medications, blood work and imaging reviewed in the chart. General: Moderate distress, Delirious HEENT: Atraumatic Neck: Supple Respiratory: Rhonchi bilaterally Cardiovascular: No edema, Regular rate/rhythm, Systolic murmur Gastrointestinal: Soft and benign, Non-distended Musculoskeletal: No clubbing, No contractures Integumentary: No rashes, No cyanosis, Skin lesion Neurological: Normal speech Greater than 30min patient care Laboratory Data (last 24 hrs) 01/06/21 10:10: Magnesium 2.0 Imagings Data: EXAM DESCRIPTION: [facility] Single View01/06/2021 10:56 am CLINICAL HISTORY: Code stroke/cardiomegaly COMPARISON: January 05, 2021 FINDINGS: Mild bilateral pulmonary opacities. Marked cardiomegaly. Central venous catheter in place IMPRESSION: Mild pulmonary edema EXAM DESCRIPTION: CT - Ct Stroke Brain Wo Cont - 01/06/2021 10:24 am CLINICAL HISTORY: Left-sided weakness COMPARISON: 2018 TECHNIQUE: Computed axial tomography of the head was obtained. FINDINGS: An intracranial bleed is not seen . The ventricles are normal in caliber. No extra-axial fluid collection is noted. Low-density within the right cerebrum secondary to an old bleed. Mild low-density areas within deep and subcortical white matter presumably chronic. Fluid within the sinuses/ mastoids is not seen. IMPRESSION: No acute intracranial abnormality is seen. If patient's symptoms persist MRI of the brain would be recommended. Conclusions/Impression: ESRD on HD -HD PRN -Remove HD CVC and send for culture -May need a temporary CVC due to sepsis -Insert rodriguez Hyperkalemia -NPO HTN with CKD/ CHF complicated by hypotension Rapid Afib -IVF bolus as needed -Continue Amiodarone Diastolic CHF, chronic -Low sodium diet -Daily weight Moderate malnutrition -Consider tube feeds Anemia in chronic illness -Continue Retacrit GRAY/ Secondary HyperPTH -Continue Vitamin D3 and Calcitriol Sepsis/ Septic Shock with GPC -Follow up cultures -Continue Vanco and Cefepime -Stop IVF -IVF bolus prn -Check echocardiogram -ID Consult Acute hypoxic respiratory failure suspicious for ARDS -Intubated 01-08-21 -Pulmonary consult Case reviewed with Dr. Chaudhary
[2021-01-08 21:43] LABS: Hematocrit 33.1 % (39.6-49.0); RBC Red Blood Cell Count 3.77 M/uL (4.33-5.43)
[2021-01-08 22:26] LABS: Protime INR 1.1
[2021-01-09] MEDS: FENTANYL CITR 100 MCG/2 ML IV PRN (00:36)
[2021-01-09 05:20] LABS: Absolute Lymphocytes (CBC) 2.1 K/uL (0.7-4.9); Basophils % 0.2 % (0-1.3); Hematocrit 33.5 % (39.6-49.0); Lymphocytes % 11.8 % (15.3-44.8); MPV 9.1 fL (7.6-11.3); RBC Red Blood Cell Count 3.86 M/uL (4.33-5.43)
[2021-01-09 05:50] LABS: Blood Gas Oxyhemoglobin 93.4 % (94-97); Blood O2 Saturation 95.4 % (92-98.5)
[2021-01-09 06:02] LABS: Albumin 2.2 g/dL (3.4-5.0); Bilirubin Direct 0.3 mg/dL (0-0.2); Bilirubin Total 0.7 mg/dL (0.2-1.0); Protein, Total 6.3 g/dL (6.4-8.2); Uric Acid 9.2 mg/dL (3.5-7.2)
[2021-01-09 06:16] LABS: Potassium 6.3 mmol/L (3.5-5.1)
[2021-01-09 06:17] LABS: Phosphorus 9.9 mg/dL (2.5-4.9)
[2021-01-09] MEDS: LORazepam 2 MG/ML VIAL IV PRN ×3 (07:30→17:36)
[2021-01-09] MEDS ORDERED: LORazepam 2 MG/ML VIAL ONE ×3 (07:34→17:52)
--- NOTE | 2021-01-09 08:25 | P.CNS ---
Date of Consult: 01/09/21 (PT agreed to TV) Reason for Consult: REsp failure Chief Complaint: Resp failure and septic shock History of Present Illness: PT AW septic shock and resp failure/ Has ESRD / On vent / Dialysis catheter was remoed yesterday/ Stable Allergies No Known Allergies Allergy (Verified 11/04/17 08:13) Home Medications: Hydralazine HCl [Apresoline] 100 mg PO TID 11/04/17 Metoprolol Succinate [Toprol Xl*] 50 mg PO BID 11/04/17 Nifedipine [Nifedipine ER] 90 mg PO BID 11/04/17 Terazosin HCl 10 mg PO BID 11/04/17 Sevelamer HCl [Renagel] 800 mg PO TID 02/04/18 minoxidiL [Loniten*] 2.5 mg PO DAILY 02/04/18 Clindamycin HCl 600 mg PO TID #21 capsule 02/08/18 Tramadol HCl [Ultram] 50 mg PO TID PRN #21 tablet 02/08/18 - Past Medical/Surgical History Diabetic: No -: Hypertension -: End-stage renal disease -: Diastolic CHF -: Anemia of chronic disease -: Thrombocytopenia -: pulmonary edema -: hx-afib- resolved -: Dialysis access placement-rt chest wall -: dialysis access-right chest wall Psychosocial/ Personal History: The patient is single. He has 9 children. He does not work. He recently got out of custodial in May of 2016. - Family History Mother Medical History: Heart disease Father History Unknown: Yes - Social History Smoking Status: Unknown if ever smoked Alcohol use: No CD- Drugs: No Caffeine use: Yes Place of Residence: Home Review of Systems is unable to be obtained Physical Examination Temp Pulse Resp BP Pulse Ox 97.1 F 107 H 31 H 111/69 98 01/09/21 04:00 01/09/21 06:00 01/09/21 06:00 01/09/21 06:00 01/09/21 06:00 General: Unresponsive - Problems (1) Septic shock Current Visit: Yes Status: Acute Plan: Aw septic shock now stable. BC os for Staph/ on vent/ Dialysis catheter removed/ Labs removed/cxry most likley pulmonary edema/ Wean doen on Fio2/ pt onAfib on vanc and cefepime/ NE of GIb/DC cefepime
--- NOTE | 2021-01-09 09:07 | EKG ---
Test Date: 2021-01-07 Test Time: 05:54:02 Boring Machine Set Up Operator: RT-O MEASUREMENT RESULTS: Intervals: Rate: 148 VA: QRSD: 84 QT: 274 QTc: 430 [place]: P: VA: QRS: 40 T: -63 INTERPRETIVE STATEMENTS: Atrial fibrillation with rapid ventricular response with premature ventricular or aberrantly conducted complexes Inferior infarct, age undetermined T wave abnormality, consider lateral ischemia or digitalis effect Abnormal ECG Compared to ECG 01/06/2021 10:30:58 Ventricular premature complex(es) now present Myocardial infarct finding now present Sinus tachycardia no longer present Atrial premature complex(es) no longer present Aberrant conduction of supraventricular beat(s) no longer present T-wave abnormality still present Possible ischemia still present Electronically Signed On 01-09-21 09:04:11 CDT by Loki Mitchell
[2021-01-09] MEDS: CEFEPIME/SWI 1gm 10 ML IV SCH (10:00)
[2021-01-09] MEDS ORDERED: CEFEPIME/SWI 1gm 10 ML IV SCH (11:00)
[2021-01-09] MEDS ORDERED: HALOPERIDOL LACT 5 MG/ML INJ ONE (11:18)
--- NOTE | 2021-01-09 11:19 | RAD REPORT ---
EXAM DESCRIPTION: RAD - Chest Single View - 01/09/2021 10:58 am CLINICAL HISTORY: ETT r/o pulm edema COMPARISON: January 08 TECHNIQUE: AP portable chest image was obtained 01/09/2021 10:58 am . FINDINGS: ET tube in place with the tip 2.5 cm above the nitin. NG tube extends below the diaphragm , off the field of view. There has been substantial resolution of the airspace opacification in the r ight hemithorax. Residual interstitial and alveolar opacities are present but far less prominent. Air space opacification of the left lung field is not substantially different. Cardiomegaly remains. Pulmonary vasculature is prominent. No measurable pleural effusion and no pneum othorax. No acute bony abnormality seen. No acute aortic findings suspected. IMPRESSION: Very substantial but incomplete resolution of pulmonary opacities in the right hemithora x. Left hemithorax opacification not substantially different. ET tube tip in good position 2.5 cm above the nitin. NG tube tip and side port of the tubing within the lumen of the stomach.
--- NOTE | 2021-01-09 11:21 | RAD REPORT ---
EXAM DESCRIPTION: RAD - Abdomen 1 View (KUB) - 01/09/2021 10:58 am CLINICAL HISTORY: OGT placement COMPARISON: Chest Single View dated 01/09/2021; Chest Single View dated 01/08/2021 FINDINGS: OG tube is in place. Tip of the tube is in the lateral left upper quadrant corresponding t o the greater curvature proximal stomach. Side port of the tubing within the lumen of the stomach promise r the GE junction. Tube is well positioned. Remainder the examination without acute or significant finding.
[2021-01-09] MEDS ORDERED: SOD POLYSTYREN SUL 15 GM/60 ML UCUP FT ONE (11:58)
--- NOTE | 2021-01-09 12:27 | PREOPCON ---
Date of Consultation: 01/09/2021 Reason: The patient needs urgent dialysis. History Of Present Illness: The patient is a 45-year-old gentleman who came in with altered mental s tatus on January 06 and was found being in sepsis. He had his catheter removed. He was growing out s taph and he needs urgent dialysis. He has hyperkalemia right now. His potassium is 6.3. I was call ed a few minutes ago by Dr. Bucio stating that he wants to urgently dialyze this patient. Therefore, I evaluated the patient, he is intubated. He is unable to give any review of systems. He is sedated . Review of Systems: Otherwise unremarkable. Medical History: Significant for hypertension, end-stage renal disease, diastolic CHF, anemia of chr onic disease, thrombocytopenia, pulmonary edema, history of AFib. Past Surgical History: Dialysis access, left foot surgery. Social History: The patient does not drink or smoke. No alcohol. Family History: Significant for heart disease, hypertension and kidney disease. Physical Examination: Vital signs: He is tachycardic slightly and tachypneic and afebrile currently. Head and neck: Intubated. Chest: Clear. Heart: S1, S2. Abdomen: Soft. Extremities: Neurovascularly intact. Neurologic: Nonfocal. Laboratory Data: Reviewed. White count is 18.1 with a left shift. INR is 1.10. Blood gas reviewed . Chemistry reviewed. Potassium is 6.3. BUN is 96, creatinine is 12.8. Phosphorus is 9.9. Procal citonin was 61.4. Cultures reviewed. Blood cultures growing Staph aureus. Assessment: Sepsis. The patient with end-stage renal disease requiring urgent dialysis for hyperkal emia. Recommendations: I discussed the case in detail with Dr. Bucio. We will proceed with a Jame jessica ter placement in the femoral region because this will need to be removed when the patient is not sept ic and then a new catheter will be placed in a different location. Family understands risks, benefit s, and alternatives and agrees to procedure. /MODL Voice ID: [id number] Report ID: [id number]
[2021-01-09] MEDS ORDERED: propofoL 200 MG/20 ML VIAL IV ONE (12:35)
[2021-01-09] MEDS ORDERED: EPHEDRINE SULF 50 MG/ML VIAL ONE (12:35)
[2021-01-09] MEDS ORDERED: HEPARIN 5000 UNIT/ML 1 ML VIAL ONE (12:48)
[2021-01-09] MEDS ORDERED: NA CHLORIDE 0.9% 100 ML IV ONE (12:48)
[2021-01-09] MEDS ORDERED: NS 0.9% VIAL 10 ML ONE ×2 (12:48→13:19)
[2021-01-09] MEDS ORDERED: LIDOCAINE 1% 20 ML MDV ONE (12:49)
[2021-01-09] MEDS ORDERED: propofoL 1,000 MG/100 ML VIAL IV PRN (12:58)
[2021-01-09] MEDS ORDERED: OXACILLIN SODIUM 2 GM in NA CHLORIDE 0.9% 100 ML IVPB SCH (13:00)
[2021-01-09] MEDS ORDERED: NAFCILLIN SODIUM 2 GM in NA CHLORIDE 0.9% 100 ML IVPB SCH (13:00)
[2021-01-09] MEDS: NA CHLORIDE 0.9% 500 ML ONE ×2 (13:10→13:40)
[2021-01-09] MEDS ORDERED: FENTANYL CITR 100 MCG/2 ML ONE (13:15)
[2021-01-09] MEDS ORDERED: ROCURONIUM 50 MG/5 ML VIAL IV ONE (13:18)
--- NOTE | 2021-01-09 13:18 | ECHO ---
HEIGHT: 6 ft 1 in WEIGHT: 184 lb 0 oz DATE OF STUDY: 01/09/[address]: Fredrick Lomeli DO 2-DIMENSIONAL: YES M.MODE: YES DOPPLER: YES COLOR FLOW: YES TDS: NO PORTABLE: NO DEFINITY: NO BUBBLE STUDY: NO DIAGNOSIS: SYSTOLIC MURMUR, BACTERMIA CARDIAC HISTORY: CATHERIZATION: SURGERY: PROSTHETIC VALVE: PACEMAKER: MEASUREMENTS (cm) DIASTOLIC (NORMALS) SYSTOLIC (NORMALS) IVSd 1.5 (0.6-1.2) LA Diam 5.0 (1.9-4.0) LVEF 72% LVIDd 5.2 (3.5-5.7) LVIDs 3.0 (2.0-3.5) %FS 42% LVPWd 1.8 (0.6-1.2) Ao Diam 3.3 (2.0-3.7) 2 DIMENSIONAL ASSESSMENT: RIGHT ATRIUM: NORMAL LEFT ATRIUM: DILATED RIGHT VENTRICLE: NORMAL LEFT VENTRICLE: LEFT VENTRICULAR HYPERTROPHY TRICUSPID VALVE: NORMAL MITRAL VALVE: PULMONIC VALVE: NORMAL AORTIC VALVE: NORMAL PERICARDIAL EFFUSION: TRACE AORTIC ROOT: NORMAL LEFT VENTRICULAR WALL MOTION: NORMAL DOPPLER/COLOR FLOW: MODERATE TRICUSPID REGURGITATION. SEVERE PULMONARY HYPERTENSION. SEVERE MITRAL REGURGITATION. COMMENTS: SEVERE PULMONARY HYPERTENSION. RIGHT VENTRICULAR SYSTOLIC PRESSURE >100 NORMAL LEFT VENTRICULAR EJECTION FRACTION. TRACE PERICARDIAL EFFUSION. LEFT VENTRICULAR HYPERTROPHY CONCENTRIC. LARGE MITRAL VALVE POSTERIOR LEAFLET VEGETATION WITH SEVERE MITRAL REGURGITATION. INDICTIVE OF MITRAL VALVE ENDOCARDITIS. TECHNOLOGIST: Pricila IZQUIERDO
--- NOTE | 2021-01-09 13:25 | P.OP ---
Stem Setter: NONE,NONE Preoperative diagnosis: Septic Endocarditis and Hyperkalemia (ESRD) Postoperative diagnosis: same Primary procedure: Left Femoral Jame Catheter Placement Anesthesia: General Estimated blood loss: min Specimen: none Findings: as above Complications: None Transferred to: ICU Condition: Serious
[2021-01-09] MEDS ORDERED: Phenylephrine HCl 10 MG/ML 1 ML VIAL ONE (13:38)
--- NOTE | 2021-01-09 13:51 | PN ---
The patient is seen in emergency room hold in room 11. Subjective: The patient is intubated. He is not alert to answer questions. He did have fever last night up to a temperature of 100.5. His blood pressure is running low with a range of 90 to 110. Hi s potassium is elevated. He does seem to have some volume overload with crackles in the lungs and al so has lower extremity trace swelling. His dialysis catheter has been removed over the weekend to gi ve him a holiday from that as he had Staph aureus growing in the blood. He had an echocardiogram jus t done and the report to me was that he may have endocarditis. I discussed the case with the cardiol ogist, Dr. Yaw Curran who reviewed the echocardiogram and advises me that the patient does have si gnificant mitral regurgitation with huge vegetation on the mitral valve area. The patient at this po int is in the OR to get a femoral catheter temporary done as we were planning on dialyzing him today given his lab work, shortness of breath and given his potassium of 6.3. The patient has also been gi sonia Kayexalate 30 g. He also has had imaging of his head done because of his decreased mentation. T here was also some thought of getting maybe EEG done. At this point, the patient's heart rate has be en running on the higher side at about 110 to 120 with atrial fibrillation and blood pressure is runn ing between 90 to 110. The patient has been on heparin. He has been on amiodarone. He has been see n by Cardiology. Dr. Curran has evaluated him as well. Objective: Vital signs: Currently show systolic blood pressure running in the 90 to 110 range. His pulse is running about 120, irregularly irregular. Abdomen: Soft. Extremities: Reveal trace edema. Lungs: Do reveal some crackles at the bases. Neurologic: The patient is not able to respond. He is intubated. He does have an OG tube placed. Laboratory Data: Reviewed. Labs show WBC 18.1. This is an increase from 12.5 on 01/06 and an incre ase from yesterday when it was 17.3. Hemoglobin, hematocrit at 10.9 and 35.5. Platelet count of 85. Chemistry shows sodium 139, potassium 6.3, chloride 104, bicarb is 23, BUN is 96, creatinine 12.8, uric acid level 9.2, phosphorus 9.9, magnesium 2.3. C-reactive protein at 178. ProBNP at 173,949. Albumin at 2.2. Prolactin level at 61.4. Cortisol level at 50.49. Assessment And Plan: The patient with end-stage renal disease, on dialysis, currently getting a dial ysis holiday with Staphylococcus aureus bacteremia; septic shock; currently in very guarded condition ; mitral valve regurgitation with vegetation reported to me by the outer diameter technician who just reviewed the echocardiogram. The patient was going to be dialyzed today. We were planning to dialyze him with a temporary catheter given his sepsis. His potassium in the dialysate, I kept it at 4 due to the becky mmendations of the outer diameter technician also that they would like to keep the potassium higher than 4 to keep the patient's rhythm better controlled. He is currently in RVR with heart rate of about 120, blood pressure running between 90 to 110. He has low-grade fever. His mentation is still declined and not sure if he has had some brain damage or if he has had some anoxic brain injury from his shock. His CT scan of the brain done on January 06 did not reveal any evidence of bleeding. It did not show any intracranial abnormalities. At this point, if the patient is still in this hospital, I have put in d ialysis orders for 2 hours to get 1.5 L of fluid off him with caution and to [facility], especially given his blood pressure issues and septic shock and intubation st atus. I discussed the case also with outer diameter technician and the patient's hospitalist, Dr. Chaudhary. Given his guarded condition, given the mitral valve regurgitation, the patient would likely benefit from [facility] level of care where cardiothoracic surgery is available in case the patient is needing to go in that route. The patient's overall condition with multiorgan failure, septic shock, now with mitral r egurgitation and cardiac vegetation in the setting of endocarditis puts him at a very high risk and e sonia with dialysis, it will be difficult to dialyze him given his low blood pressures and atrial fibri llation and his septic shock. The patient if stays stable enough for dialysis, may benefit from CRRT . Given these facts, I recommend the patient be transferred to a tertiary setting if a bed can be fo und and this is acceptable to the primary team. I have discussed the case with Dr. Chaudhary, the hospitalist and also with Dr. Curran, the [facility] ologist. /ANTHONY Voice ID: [id number] Report ID: [id number]
[2021-01-09] MEDS ORDERED: CEFAZOLIN/SWI 2gm 2 GM/20 ML SYR IVP SCH (14:00)
--- NOTE | 2021-01-09 14:03 | OP ---
Date of Procedure: 01/09/2021 Surgeon: Nikita Rodriguez MD Merchandising Stock Associate: None. Preoperative Diagnoses: Septic endocarditis and hyperkalemia in a patient with end-stage renal disea se. Postoperative Diagnoses: Septic endocarditis and hyperkalemia in a patient with end-stage renal dise ase. Procedure: Placement of left femoral Jame catheter placement. Doppler device was used to help id entify the location of the femoral vein. Estimated Blood Loss: Minimal. Specimen: None. Findings: Normal anatomy. Anesthesia: General. Complication: None. Disposition: The patient tolerated the procedure, taken back to ICU in serious, but stable condition . Procedure In Detail: The patient was prepped and draped in usual sterile fashion in the left groin. Lidocaine 1% infiltrated locally and a Doppler device was used to identify the left femoral artery, immediately to that the left femoral vein was accessed via an 18-gauge needle. Guidewire was passed. Seldinger technique was used, vein dilated, and then catheter was placed and secured with 2-0 nylon . Jame catheter was flushed with heparin and packed with heparin. Sterile dressing was applied. The patient tolerated the procedure, in stable condition. There was good blood flow in the catheter and the patient was taken back to ICU intubated in serious, but stable condition. /MODL Voice ID: [id number] Report ID: [id number]
[2021-01-09] MEDS: AMIODARONE HCL 900 MG in Dextrose 5%-Water 482 ML IV SCH (14:14)
--- NOTE | 2021-01-09 14:33 | CON ---
Reason For Consultation: Consulted for bacteremia secondary to Staphylococcus aureus. History Of Present Illness: The patient is currently being treated with vancomycin and cefepime. Th e patient just has received drug to sedate him, so he is not able to give much of any history. Most of the history was obtained from the staff and medical records. The patient came to the emergency ro on 01/06 growing Staph aureus in his blood, also a dialysis patient secondary to hypertension, kaushal stolic congestive heart failure, anemia of chronic disease, thrombocytopenia, history of atrial fibri llation, left foot surgery, dialysis access to right chest wall. The patient is going to get a new c atheter today. Past Medical History: As per HPI. Social History: Nonsmoker, nondrinker. Family History: Noncontributory. Medications: Vancomycin and cefepime. See MAR for other medications. Allergies: NO KNOWN DRUG ALLERGIES. Review of Systems: Unable to obtain. Physical Examination: General: This is a 45-year-old unfortunate male, lying in bed, not in any acute distress, on ventila tor at this time. Vital Signs: Currently on 40% FiO2, afebrile, pulse 116, respirations 39, blood pressure 123/92. HEENT: ET tube in place. Neck: Supple. Lungs: Clear to auscultation. Heart: S1, S2. Regular. Abdomen: Soft. Bowel sounds present. Extremities: No edema. No petechiae noted on his feet, sole and palms. Laboratory Data: Shows WBC 18,000, hemoglobin 10.9, platelets are 85. Chemistry shows sodium 139, p otassium 6.3, chloride 104, bicarb 23, BUN 96, creatinine 12.8, glucose is 109. AST is 236, ALT is 1 10, albumin level is 2.2. Micro data; blood cultures growing Staph aureus, sensitive to oxacillin. Assessment And Plan: Bacteremia and sepsis secondary to Staphylococcus aureus, possible from his IV line for dialysis. For the source of infection, we will recommend to switch antibiotic to nafcillin 2 g IV q.4 hours. Continue antibiotic for 2 more weeks for the blood cultures being negative. The p atient is being also checked for possible endocarditis. Quite likely in his case, the patient has a dialysis catheter possible source of infection. If that is the case, we will continue the antibiotic for 4 weeks. Consider long-term acute care, continue supportive care, and antibiotic and we will fo llow the patient closely. Thank you Dr. Chaudhary for consult. NOE/ANTHONY Voice ID: [id number] Report ID: [id number]
--- NOTE | 2021-01-09 16:13 | P.PN ---
Subjective Date of Service: 01/09/21 Chief Complaint: Resp failure and septic shock Patient remain altered. He is in atrial fibrillation with a rate from 110 to 120. Blood pressure is soft. Intermittent fever Multiple blood cultures growing Staph aureus Physical Examination - Vital Signs Temperature: 97.5 F Blood Pressure: 94/64 Pulse: 103 Respirations: 20 Pulse Ox (%): 96 - Physical Exam General: Unresponsive, Other (Look sick) HEENT: PERRLA, Sclerae nonicteric Neck: JVD not distended Respiratory: Normal air movement, Crackles/rales (Right greater than left) Cardiovascular: No edema, Irregular heart rate/rhythm, Systolic murmur Gastrointestinal: Normal bowel sounds, Soft and benign, Non-distended Musculoskeletal: No swelling Integumentary: No erythema, No cyanosis Neurological: Other (Moves all extremities spontaneously.) - Studies Microbiology Data (last 24 hrs): 01/06/21 10:45 Blood - Blood Aerobic Blood Culture - Final Staph Aureus 01/06/21 10:45 Blood - Blood Blood Culture Gram Stain - Final 01/06/21 10:45 Blood - Blood Anaerobic Blood Culture - Final Staph Aureus 01/06/21 10:45 Blood - Blood Gram Stain - Final 01/06/21 11:00 Blood - Blood Aerobic Blood Culture - Final Staph Aureus 01/06/21 11:00 Blood - Blood Blood Culture Gram Stain - Final 01/06/21 11:00 Blood - Blood Anaerobic Blood Culture - Final Staph Aureus 01/06/21 11:00 Blood - Blood Gram Stain - Final Assessment And Plan - Current Problems (Diagnosis) (1) Sepsis Current Visit: Yes Status: Acute (2) End-stage renal disease Onset Date: 10/21/17 Current Visit: No Status: Acute (3) Elevated troponin Current Visit: No Status: Acute (4) Endocarditis Current Visit: Yes Status: Acute - Plan Multiple blood cultures; MSSA. Echocardiogram suggest large mitral endocarditis with mitral insufficiency Cardiology recommended transfer to a tertiary center for CT surgery intervention. Dialysis catheter removed yesterday. Seen by infectious disease-Dr. Lemus was recommended nafcillin. Patient noted to be hyperkalemic. Nephrology recommend dialysis today. Dr. Rodriguez placed placed Jame catheter for urgent hemodialysis today. Follow blood cultures. Femoral catheter placed. Heparin drip discontinued due to hemoptysis. Chest x-ray shows dense opacity in the right lung. Suspecting pneumonia/infiltrate more than fluid. Patient currently requiring high-flow oxygen with 100% FiO2. Pulmonary consulted to assist with management. He is on amiodarone drip for atrial fibrillation and nonsustained VT. Cardiology is following. Patient is NPO. Hemodialysis and fluid management per nephrology. Critical Care: Yes (Critical care time spent on bacteremia, respiratory failure, afib is 40 min) Time Spent Managing PTS Care (In Minutes): 62
[2021-01-09] MEDS ORDERED: ALBUMIN HUMAN 25% 100 ML IV ONE (16:14)
--- NOTE | 2021-01-09 19:57 | PN ---
Date of Progress Note: 01/09/2021 Subjective: The patient was seen by bedside. He is intubated and unable to give any history; howeve r, he has been lethargic, febrile throughout. Physical Examination: Vital Signs: Temperature is 97.5, heart rate 103, breathing at 20, blood pressure is 94/64, saturati ng 96%. General: This is a young male, appears ill. Head and Neck: Pupils are equal, reactive to light. No JVD. No cervical lymphadenopathy. Lungs: Crackles in both lungs. No accessory muscle use or muscle retraction. Heart: Irregularly irregular with systolic murmur. Abdomen: Soft, nontender. Bowel sounds positive. No organomegaly. No masses or hernia. No rigidi ty or rebound. Extremities: No clubbing, cyanosis. Intact pulses. Skin: No rash. Neuro: He is sedated on the vent. Investigations: Creatinine 12.8, last troponin was 1.48, and potassium 6.3. White blood cell count is 18.1, hemoglobin 10.9. Echo was done today, evaluated. The patient has a large posterior leaflet of the mitral valve regurgitation with severe mitral valve regurgitation. Assessment And Recommendations: 1.Mitral valve endocarditis with large regurgitation of the posterior leaflet and severe mitral valv e regurgitation. The patient needs to be transferred to higher level care facility for mitral valve replacement. I discussed the case with Dr. Trey Nelson from Cardiac Surgery at [facility] and the patient was accepted for a transfer. Meanwhile, continue wid e-spectrum antibiotics to cover methicillin-resistant Staphylococcus aureus that was isolated from bl ood. 2.Respiratory failure, likely due to acute heart failure from the severe mitral regurgitation and de finitive management will be with a valve replacement. 3.Atrial fibrillation, rate is controlled. Continue amiodarone infusion. SR/MODL Voice ID: [id number] Report ID: [id number]
--- NOTE | 2021-01-09 20:45 | P.DS ---
Admission Date: 01/06/21 Discharge Date: 01/09/21 Disposition: TRANSFER TO [facility] Discharge Condition: CRITICAL Reason for Admission: Resp failure and septic shock - Problems (1) Sepsis Current Visit: Yes Status: Acute (2) End-stage renal disease Onset Date: 10/21/17 Current Visit: No Status: Acute (3) Elevated troponin Current Visit: No Status: Acute (4) Endocarditis Current Visit: Yes Status: Acute Brief History of Present Illness: 45-year-old gentleman with a history of end-stage renal disease on hemodialysis was brought to the emergency department due to altered mental status. Patient was in the emergency department last night but left against medical advice. No seizures reported. Workup in the emergency department shows markedly elevated pro calcitonin, WBC count of 12,000, tachycardia and temperature of 100.5. Patient meets criteria for sepsis. Lactic acid level is normal. Patient with altered mental status and could not provide any history. Sepsis protocol initiated in the ED. He was given 250 mL normal saline bolus. He is admitted for further management. Hospital Course: Patient admitted to the ICU on sepsis protocol initiated. Patient initially treated with IV cefepime and vancomycin. Multiple blood cultures; MSSA. Echocardiogram suggest large mitral endocarditis with mitral insufficiency Cardiology recommended transfer to a tertiary center for CT surgery intervention. Had permanent Dialysis catheter which was removed yesterday. Nephrology saw patient and performed hemodialysis x2. He has a new Jame catheter. Dr. Rodriguez placed placed Jame catheter for urgent hemodialysis today. Seen by infectious disease-Dr. Lemus who recommended nafcillin. Femoral catheter also placed. Initially on Heparin drip for elevated troponin but this was discontinued due to hemoptysis. Chest x-ray shows dense opacity in the right lung. Suspecting pneumonia /infiltrate more than fluid. Intubated and on mechanical ventilation. Pulmonary consulted to assist with management. He is on amiodarone drip for atrial fibrillation and nonsustained VT. Patient is NPO. No improvement in altered mental status. Patient need urgent CT surgery for large mitral endocarditis with severe mitral regurgitation per cardiology-Dr. Curran. Dr. Nelson CT surgery has accepted patient for transfer to [facility]. Vital Signs/Physical Exam: Temp Pulse Resp BP Pulse Ox 97.5 F 107 H 16 96/54 L 99 01/09/21 16:18 01/09/21 18:00 01/09/21 18:00 01/09/21 18:00 01/09/21 18:00 General: Unresponsive HEENT: Other (Intubated) Respiratory: Diminished, Crackles/rales (Bilateral bases worse on the right) Cardiovascular: No edema, Irregular heart rate/rhythm, Systolic murmur Gastrointestinal: Soft and benign, Non-distended Musculoskeletal: No swelling Laboratory Data at Discharge: WBC 18.10 K/uL (4.3-10.9) H 01/09/21 04:24 Hgb 10.9 g/dL (13.6-17.9) L 01/09/21 04:24 Hct 33.5 % (39.6-49.0) L 01/09/21 04:24 Plt Count 85 K/uL (152-406) L 01/09/21 04:24 PT 12.7 SECONDS (9.5-12.5) H 01/08/21 21:21 INR 1.10 01/08/21 21:21 APTT 28.7 SECONDS (24.3-36.9) 01/08/21 21:21 Sodium 139 mmol/L (136-145) 01/09/21 04:24 Potassium 6.3 mmol/L (3.5-5.1) H* 01/09/21 04:24 BUN 96 mg/dL (7-18) H D 01/09/21 04:24 Creatinine 12.80 mg/dL (0.55-1.3) H* D 01/09/21 04:24 Glucose 109 mg/dL (74-106) H 01/09/21 04:24 Uric Acid 9.2 mg/dL (3.5-7.2) H 01/09/21 04:24 Phosphorus 9.9 mg/dL (2.5-4.9) H* 01/09/21 04:24 Magnesium 2.3 mg/dL (1.8-2.4) 01/08/21 04:56 Total Bilirubin 0.7 mg/dL (0.2-1.0) 01/09/21 04:24 AST 236 U/L (15-37) H D 01/09/21 04:24 ALT 120 U/L (12-78) H 01/09/21 04:24 Alkaline Phosphatase 111 U/L (45-117) 01/09/21 04:24 Troponin I 1.48 ng/mL (0.0-0.045) H* 01/08/21 16:41 Home Medications: Hydralazine HCl [Apresoline] 100 mg PO TID 11/04/17 Metoprolol Succinate [Toprol Xl*] 50 mg PO BID 11/04/17 Nifedipine [Nifedipine ER] 90 mg PO BID 11/04/17 Terazosin HCl 10 mg PO BID 11/04/17 Sevelamer HCl [Renagel] 800 mg PO TID 02/04/18 minoxidiL [Loniten*] 2.5 mg PO DAILY 02/04/18 Clindamycin HCl 600 mg PO TID #21 capsule 02/08/18 Tramadol HCl [Ultram] 50 mg PO TID PRN #21 tablet 02/08/18 Followup: Unknown,U [Primary Care Provider] - Time spent managing pt's care (in minutes): 40
[2021-01-09] MEDS ORDERED: METOPROLOL TARTRATE 5 MG/5 ML INJ IV STA ×2 (20:54→22:00)
[2021-01-09] MEDS ORDERED: METOPROLOL TARTRATE 5 MG/5 ML INJ IV ONE ×2 (21:18→22:20)
[2021-01-10] MEDS: ACETAMINOPHEN 650MG/RECT SUPP PR PRN (00:09)
[2021-01-10] MEDS: FENTANYL CITR 100 MCG/2 ML IV PRN ×2 (00:19→12:18)
[2021-01-10] MEDS ORDERED: ACETAMINOPHEN 650MG/RECT SUPP PR ONE (00:29)
[2021-01-10] MEDS: LORazepam 2 MG/ML VIAL IV PRN ×2 (01:15→08:31)
[2021-01-10] MEDS ORDERED: LORazepam 2 MG/ML VIAL ONE ×2 (01:33→08:52)
[2021-01-10 02:08] VITALS: TEMP 98.3
[2021-01-10 04:57] LABS: Absolute Lymphocytes (CBC) 1.2 K/uL (0.7-4.9); Basophils % 0.5 % (0-1.3); Hematocrit 30.2 % (39.6-49.0); Lymphocytes % 7.4 % (15.3-44.8); MPV 9.6 fL (7.6-11.3); RBC Red Blood Cell Count 3.48 M/uL (4.33-5.43)
[2021-01-10 05:22] LABS: Albumin 2.2 g/dL (3.4-5.0); Bilirubin Direct 0.4 mg/dL (0-0.2); Bilirubin Total 0.9 mg/dL (0.2-1.0); Potassium 4.8 mmol/L (3.5-5.1); Protein, Total 5.8 g/dL (6.4-8.2)
[2021-01-10 07:39] LABS: Blood Morphology Comment NOTED (NOT SEEN); Platelet Estimate DECR
[2021-01-10 07:40] LABS: Burr Cells 1+; Poikilocytosis SLIGHT; Target Cells 1+
[2021-01-10] MEDS ORDERED: FAMOTIDINE 20 MG/2 ML VIAL IV ONE (08:52)
[2021-01-10] MEDS ORDERED: FAMOTIDINE 20 MG/2 ML VIAL IV SCH (09:00)
[2021-01-10 09:14] VITALS: O2SAT 97
--- NOTE | 2021-01-10 10:44 | P.PN ---
Subjective Date of Service: 01/10/21 Chief Complaint: Resp failure and septic shock Patient seen examined at bedside, intubated. Review of Systems 10-point ROS is otherwise unremarkable Physical Examination - Vital Signs Temperature: 98.3 F Blood Pressure: 96/68 Pulse: 104 Respirations: 19 Pulse Ox (%): 96 - Physical Exam General: Cachectic, Other (Intubated) HEENT: Atraumatic, Normocephalic Neck: Supple, 2+ carotid pulse no bruit, JVD not distended Respiratory: Crackles/rales (bilaterally ) Cardiovascular: Irregular heart rate/rhythm, Systolic murmur Capillary refill: <2 Seconds Gastrointestinal: Soft and benign, Non-distended Musculoskeletal: No clubbing, No swelling, No contractures Integumentary: No rashes, No breakdown - Studies Laboratory Last Values WBC 12.50 K/uL (4.3-10.9) H D 01/06/21 10:19 RBC 4.15 M/uL (4.33-5.43) L 01/06/21 10:19 Hgb 11.4 g/dL (13.6-17.9) L 01/06/21 10:19 Hct 35.8 % (39.6-49.0) L 01/06/21 10:19 MCV 86.1 fL (80-100) 01/06/21 10:19 MCH 27.5 pg (27.0-35.0) 01/06/21 10:19 MCHC 32.0 g/dL (32.0-36.0) 01/06/21 10:19 RDW 15.3 % (12.1-15.2) H 01/06/21 10:19 Plt Count 95 K/uL (152-406) L 01/06/21 10:19 MPV 8.4 fL (7.6-11.3) D 01/06/21 10:19 Neutrophils % 89.9 % (41.7-73.7) H 01/06/21 10:19 Lymphocytes % 1.5 % (15.3-44.8) L 01/06/21 10:19 Monocytes % 7.4 % (3.3-12.3) 01/06/21 10:19 Eosinophils % 0.7 % (0-4.4) 01/06/21 10:19 Basophils % 0.5 % (0-1.3) 01/06/21 10:19 Absolute Neutrophils 11.2 K/uL (1.8-8.0) H 01/06/21 10:19 Segmented Neutrophils 88 % (40-80) H 01/06/21 10:19 Absolute Lymphocytes 0.2 K/uL (0.7-4.9) L 01/06/21 10:19 Lymphocytes 3 % (15-42) L 01/06/21 10:19 Monocytes 9 % (0-10) 01/06/21 10:19 Absolute Monocytes 0.9 K/uL (0.1-1.3) 01/06/21 10:19 Absolute Eosinophils 0.1 K/uL (0-0.5) 01/06/21 10:19 Absolute Basophils 0.1 K/uL (0-0.5) 01/06/21 10:19 Toxic Granulation Present 01/06/21 10:19 Platelet Estimate Decr 01/06/21 10:19 Morphology Comment Not seen (NOT SEEN) 01/06/21 10:19 PT 14.9 SECONDS (9.5-12.5) H 01/06/21 10:19 INR 1.29 01/06/21 10:19 APTT 29.2 SECONDS (24.3-36.9) 01/06/21 10:19 Sodium 136 mmol/L (136-145) 01/06/21 10:19 Potassium 4.7 mmol/L (3.5-5.1) 01/06/21 10:19 Chloride 101 mmol/L (98-107) 01/06/21 10:19 Carbon Dioxide 24 mmol/L (21-32) 01/06/21 10:19 BUN 74 mg/dL (7-18) H D 01/06/21 10:19 Creatinine 12.60 mg/dL (0.55-1.3) H* D 01/06/21 10:19 Estimated GFR 5 mL/min (=/>90) L 01/06/21 10:19 Glucose 103 mg/dL (74-106) 01/06/21 10:19 POC Glucose 104 mg/dL (65-120) 01/06/21 10:13 Lactic Acid 1.3 mmol/L (0.4-2.0) 01/06/21 10:58 Calcium 8.4 mg/dL (8.5-10.1) L 01/06/21 10:19 Magnesium 2.0 mg/dL (1.8-2.4) 01/06/21 10:10 Rapid Troponin I 1.19 ng/mL (0.0-0.045) H* 01/06/21 10:10 NT-Pro-B Natriuret Pep 178795 pg/mL (<125) H 01/06/21 10:10 Procalcitonin 106.60 ng/mL (<0.050) H 01/06/21 10:45 Urine RBC Cancelled 01/06/21 11:16 Urine WBC Cancelled 01/06/21 11:16 Ur Squamous Epith Cells Cancelled 01/06/21 11:16 Ur Urothelial Cells Cancelled 01/06/21 11:16 Calcium Oxalate Crystal Cancelled 01/06/21 11:16 Uric Acid Crystals Cancelled 01/06/21 11:16 Triple Phos Crystals Cancelled 01/06/21 11:16 Other Crystals Cancelled 01/06/21 11:16 Amorphous Sediment Cancelled 01/06/21 11:16 Glitter Cells Cancelled 01/06/21 11:16 Urine Bacteria Cancelled 01/06/21 11:16 Hyaline Casts Cancelled 01/06/21 11:16 Fine Granular Casts Cancelled 01/06/21 11:16 Coarse Granular Casts Cancelled 01/06/21 11:16 Waxy Casts Cancelled 01/06/21 11:16 RBC Casts Cancelled 01/06/21 11:16 WBC Casts Cancelled 01/06/21 11:16 Urine Mucus Cancelled 01/06/21 11:16 Urine Other Cancelled 01/06/21 11:16 Urine Trichomonas Cancelled 01/06/21 11:16 Urine Yeast Cancelled 01/06/21 11:16 Ur Yeast w Hyphae Cancelled 01/06/21 11:16 Urine Yeast (Budding) Cancelled 01/06/21 11:16 Urine Sperm Cancelled 01/06/21 11:16 Urine Culture Reflexed Cancelled 01/06/21 11:16 Urine Total Volume Cancelled 01/06/21 11:16 Opiates Screen Negative (NEGATIVE) 01/06/21 13:22 Methadone Screen Negative (NEGATIVE) 01/06/21 13:22 Ur Barbiturates Screen Negative (NEGATIVE) 01/06/21 13:22 Ur Phencyclidine Scrn Negative (NEGATIVE) 01/06/21 13:22 Amphetamines Screen Negative (NEGATIVE) 01/06/21 13:22 Benzodiazepines Screen Negative (NEGATIVE) 01/06/21 13:22 Cocaine Screen Negative (NEGATIVE) 01/06/21 13:22 Ur THC Screen Negative (NEGATIVE) 01/06/21 13:22 Microbiology Data (last 24 hrs): 01/06/21 10:45 Blood - Blood Aerobic Blood Culture - Final Staph Aureus 01/06/21 10:45 Blood - Blood Blood Culture Gram Stain - Final 01/06/21 10:45 Blood - Blood Anaerobic Blood Culture - Final Staph Aureus 01/06/21 10:45 Blood - Blood Gram Stain - Final 01/06/21 11:00 Blood - Blood Aerobic Blood Culture - Final Staph Aureus 01/06/21 11:00 Blood - Blood Blood Culture Gram Stain - Final 01/06/21 11:00 Blood - Blood Anaerobic Blood Culture - Final Staph Aureus 01/06/21 11:00 Blood - Blood Gram Stain - Final Assessment And Plan - Plan Assessment: -MSSA bacteremia source of infection: dialysis catheter -ESRD on HD -mitral valve endocarditis -atrial fibrillation -thrombocytopenia -anemia -elevated liver enzymes AST>ALT -protein caloric malnutrition Plan: -blood cultures growing methicillin-susceptible Staphylococcus aureus. Continue IV cefazolin. Patient will need at least 2 weeks of IV antibiotics following a negative blood culture. Source of infection: Dialysis catheter. Dialysis catheter has been removed and temporary femoral line has been placed for emergent dialysis. Echocardiogram showed mitral valve endocarditis, patient will need mitral valve replacement. Currently awaiting transfer. -medical management per primary team -continue monitor CBC and BMP Plan of care discussed with Dr. Lemus Thank you for consultation
[2021-01-10] MEDS ORDERED: FENTANYL CITR 100 MCG/2 ML ONE (12:25)
--- NOTE | 2021-01-10 12:25 | PN ---
Date of Progress Note: 01/10/2021 Subjective: The patient is seen in Emergency Room HOLD in the Intensive Care HOLD. The patient's co ndition continues to be critical. He is still intubated, requiring sedation p.r.n. He is unresponsi ve. He was found to have severe MR and he is in atrial fibrillation with rate somewhat uncontrolled with rate going anywhere from 90s to 130s in atrial fibrillation. His blood pressures have been runn ing in the 90 systolic range and were down to 80s on dialysis yesterday. The patient did tolerate di alysis yesterday and a 2-hour treatment was completed. His numbers have improved. His potassium, bi carb are in reasonably normal range currently. His volume status seems to be somewhat stable, but hi s blood pressures are low and he has severe MR, which makes difficult to even dialyze him and perhaps if the condition continues to worsen, he may need CRRT at some point. He also is awaiting surgery f or treatment of his MR seems like the mitral valve is severely impacted with vegetation, which is lik elisabeth secondary to the blood infection that the patient has with Staph aureus. He is currently on anti biotics and awaiting transfer. Objective: Vital Signs: Last blood pressure around 96/68, pulse was about 105-110 and irregularly i rregular, respirations on ventilator. The patient is tolerating ventilation well with AC setting of 12, O2 of 40%, and PEEP of 5, tidal volume setting at about 600. Lungs: His lungs are clear anteriorly with few crackles at the very bases. He has a better air entry and better air movement compared to yesterday. Abdomen: Soft. Extremities: Reveal no edema. Heart: Sounds are irregularly irregular with a murmur. Laboratory Data: Reviewed. Labs show WBC of 16.1, improved from 18.1 yesterday. Hemoglobin and hem atocrit are relatively stable at 9.7 and 30.2, platelet count of 102. Chemistry shows sodium 144, po tassium 4.8, chloride 106, bicarb is 26, BUN is 91, creatinine 10.8, glucose 108. His BUN and creati nine were 96 and 12.8 yesterday. Potassium was 6.3 yesterday. This is improved down to 4.8 today. His CRP level is still 171, was 178 yesterday. His prolactin level day before yesterday was 61, yest erday was 50.5. Assessment And Plan: The patient is in critical condition with Staphylococcus aureus bacteremia with endocarditis with mitral valve regurgitation with wall destruction with vegetation, awaiting surgery . At this point, the patient seems to be reasonably stable from his electrolytes and kidney point of view. He is going to require dialysis, perhaps by tomorrow. I do not see an urgent emergent need f or dialysis today. Would also possibly need CRRT if his blood pressures continue to drop and special ly post cardiac surgery. If the blood pressure is low and the patient is going to be dialyzed, may n eed to be transferred to CRRT. CRRT is not available at this hospital, but the patient is awaiting t [facility] to [facility] where I am sure CRRT and other modalities will be available as w ell if the patient will need so. The patient's condition continues to be critical and will need to b e continued to monitor in ICU setting. Will likely need cardiac surgery with valve replacement or va lve vegetation surgery JARRED to allow the patient to get well from this endocarditis episode and also to stabilize his cardiac condition. The patient's atrial fibrillation and volume issues are partly r elated to the fact that he has wide-open MR currently. /ANTHONY Voice ID: [id number] Report ID: [id number]
--- NOTE | 2021-01-10 12:29 | P.DS ---
Admission Date: 01/06/21 Discharge Date: 01/10/21 Disposition: TRANSFER TO [facility] Discharge Condition: CRITICAL Reason for Admission: Resp failure and septic shock, endocarditis Consultations: Infectious diseaseDrJennifer Lemus Nephrology - Dr. Bucio / Dr. Lomeli Cardiology - Dr. Curran / Dr. Mitchell General Surgery - Dr. Mcfarland / Dr. Rodriguez Procedures: CT brain (01/06): FINDINGS: An intracranial bleed is not seen . The ventricles are normal in caliber. No extra-axial fluid collection is noted. Low-density within the right cerebrum secondary to an old bleed. Mild low-density areas within deep and subcortical white matter presumably chronic. Fluid within the sinuses/ mastoids is not seen. IMPRESSION: No acute intracranial abnormality is seen. If patient's symptoms persist MRI of the brain would be recommended. CXR (01/06): FINDINGS: Mild bilateral pulmonary opacities. Marked cardiomegaly. Central venous catheter in place IMPRESSION: Mild pulmonary edema CXR (01/08): Tip of the endotracheal tube is at the level of the superior aortic arch. Enteric tube tip is proximal stomach near the esophagogastric junction. Asymmetric bilateral pulmonary opacities are noted, significantly greater on the right. Heart is moderately enlarged. CXR (01/09): FINDINGS: ET tube in place with the tip 2.5 cm above the nitin. NG tube extends below the diaphragm, off the field of view. There has been substantial resolution of the airspace opacification in the right hemithorax. Residual interstitial and alveolar opacities are present but far less prominent. Airspace opacification of the left lung field is not substantially different. Cardiomegaly remains. Pulmonary vasculature is prominent. No measurable pleural effusion and no pneumothorax. No acute bony abnormality seen. No acute aortic findings suspected. IMPRESSION: Very substantial but incomplete resolution of pulmonary opacities in the right hemithorax. Left hemithorax opacification not substantially different. ET tube tip in good position 2.5 cm above the nitin. NG tube tip and side port of the tubing within the lumen of the stomach. KUB (01/09): FINDINGS: OG tube is in place. Tip of the tube is in the lateral left upper quadrant corresponding to the greater curvature proximal stomach. Side port of the tubing within the lumen of the stomach near the GE junction. Tube is well positioned. Remainder the examination without acute or significant finding. TTE (01/09): Severe pulmonary hypertension. Right ventricular systolic pressure > 100. Normal LVEF (72%). Trace pericardial effusion. LV hypertrophy concentric. Large mitral valve posterior leaflet vegetation with severe mitral regurgitation. Indicative of mitral valve endocarditis. Removal of left tunneled subclavian dialysis catheter (01/08) by Crow Mcfarland Left femoral Jame catheter placement (01/09) by Dr. Rodriguez Problem List Mitral valve endocarditis Sepsis secondary to MSSA bacteremia, source: dialysis catheter ESRD on HD Atrial fibrillation Thrombocytopenia Elevated liver enzymes moderate protein calorie malnutrition Brief History of Present Illness: 45-year-old gentleman with a history of end-stage renal disease on hemodialysis was brought to the emergency department due to altered mental status. Patient was in the emergency department last night but left against medical advice. No seizures reported. Workup in the emergency department shows markedly elevated pro calcitonin, WBC count of 12,000, tachycardia and temperature of 100.5. Patient meets criteria for sepsis. Lactic acid level is normal. Patient with altered mental status and could not provide any history. Sepsis protocol initiated in the ED. He was given 250 mL normal saline bolus. He is admitted for further management. Hospital Course: Patient admitted to the ICU on sepsis protocol initiated. Patient initially treated with IV cefepime and vancomycin. Multiple blood cultures; MSSA. Echocardiogram suggestive of large mitral endocarditis with mitral insufficiency Cardiology recommended transfer to a tertiary center for CT surgery intervention. Had permanent Dialysis catheter removed. and a new Jame catheter was placed. Nephrology saw patient and performed hemodialysis x2. Seen by infectious disease-Dr. Lemus who recommended nafcillin. Initially on Heparin drip for elevated troponin but this was discontinued due to hemoptysis. Chest x-ray shows dense opacity in the right lung. Suspecting pneumonia/infiltrate more than fluid. Intubated and on mechanical ventilation. Pulmonary was consulted to assist with management. He is on amiodarone drip for atrial fibrillation and nonsustained VT. Patient is NPO. No improvement in altered mental status. Patient need urgent CT surgery for large mitral endocarditis with severe mitral regurgitation per cardiology-Dr. Curran. Dr. Nelson CT surgery has accepted patient for transfer to [facility]. Vital Signs/Physical Exam: Physical exam General: Unresponsive, on ventilator HEENT: Intubated, normal conjunctiva Respiratory: Diminished, Crackles/rales (Bilateral bases worse on the right) Cardiovascular: No edema, Irregular heart rate/rhythm, Systolic murmur Gastrointestinal: Soft and benign, Non-distended Musculoskeletal: No swelling Temp Pulse Resp BP Pulse Ox 98.3 F 107 H 18 126/82 97 01/10/21 10:44 01/10/21 12:00 01/10/21 12:18 01/10/21 12:00 01/10/21 12:18 Laboratory Data at Discharge: WBC 16.10 K/uL (4.3-10.9) H 01/10/21 04:30 Hgb 9.7 g/dL (13.6-17.9) L 01/10/21 04:30 Hct 30.2 % (39.6-49.0) L 01/10/21 04:30 Plt Count 102 K/uL (152-406) L 01/10/21 04:30 PT 12.7 SECONDS (9.5-12.5) H 01/08/21 21:21 INR 1.10 01/08/21 21:21 APTT 28.7 SECONDS (24.3-36.9) 01/08/21 21:21 Sodium 144 mmol/L (136-145) 01/10/21 04:30 Potassium 4.8 mmol/L (3.5-5.1) 01/10/21 04:30 BUN 91 mg/dL (7-18) H 01/10/21 04:30 Creatinine 10.80 mg/dL (0.55-1.3) H* D 01/10/21 04:30 Glucose 108 mg/dL (74-106) H 01/10/21 04:30 Uric Acid 9.2 mg/dL (3.5-7.2) H 01/09/21 04:24 Phosphorus 9.0 mg/dL (2.5-4.9) H* 01/10/21 04:30 Magnesium 2.7 mg/dL (1.8-2.4) H 01/10/21 04:30 Total Bilirubin 0.9 mg/dL (0.2-1.0) 01/10/21 04:30 AST 284 U/L (15-37) H 01/10/21 04:30 ALT 203 U/L (12-78) H 01/10/21 04:30 Alkaline Phosphatase 92 U/L (45-117) 01/10/21 04:30 Troponin I 1.48 ng/mL (0.0-0.045) H* 01/08/21 16:41 Home Medications: Hydralazine HCl [Apresoline] 100 mg PO TID 11/04/17 Metoprolol Succinate [Toprol Xl*] 50 mg PO BID 11/04/17 Nifedipine [Nifedipine ER] 90 mg PO BID 11/04/17 Terazosin HCl 10 mg PO BID 11/04/17 Sevelamer HCl [Renagel] 800 mg PO TID 02/04/18 minoxidiL [Loniten*] 2.5 mg PO DAILY 02/04/18 Clindamycin HCl 600 mg PO TID #21 capsule 02/08/18 Tramadol HCl [Ultram] 50 mg PO TID PRN #21 tablet 02/08/18 Followup: Unknown,U [Primary Care Provider] - Time spent managing pt's care (in minutes): 45
[2021-01-10 13:05] VITALS: BP 112/83
[2021-01-11 18:18] LABS: HBsAG Nonreactive (Nonreactive)
--- NOTE | 2021-01-12 11:27 | PN ---
Date of Progress Note: 01/10/2021 Mr. Rivera had came in with sepsis, possible endocarditis, end-stage renal disease. Echocardiogram s howed severe pulmonary hypertension, right ventricular systolic pressure more than 100, trace pericar dial effusion, severe mitral regurgitation with posterior mitral valve leaflet vegetation indicative of mitral valve endocarditis. Plan is to transfer the patient to Dr. Lomeli. Primary care physicia n is aware. We are awaiting his transfer to [facility]. DEBO/ANTHONY Voice ID: [id number] Report ID: [id number]
== END 2021-01-10 13:39 | disposition short-term general hospital (02) | DRG 252 ==
LOC: ER 10:08 → ERHOLD 15:35 → 2ND 19:31 → ERHOLD 01-07 06:29
PROVIDERS: ADMIT Internal Medicine; ATTEND Internal Medicine
PROC: 05PY03Z Removal of Infusion Device from Upper Vein, Open Approach (ICD-10-PCS; 2021-01-08)
PROC: 0BH17EZ Insertion of Endotracheal Airway into Trachea, Via Natural or Artificial Opening (ICD-10-PCS; 2021-01-08)
PROC: 5A1945Z Respiratory Ventilation, 24-96 Consecutive Hours (ICD-10-PCS; 2021-01-08)
PROC: 5A1D70Z Performance of Urinary Filtration, Intermittent, Less than 6 Hours Per Day (ICD-10-PCS; 2021-01-09)
PROC: 06HN33Z Insertion of Infusion Device into Left Femoral Vein, Percutaneous Approach (ICD-10-PCS; principal; 2021-01-09 10:45)
DX: T82.7XXA Infection and inflammatory reaction due to other cardiac and vascular devices, implants and grafts, initial encounter (principal); A41.01 Sepsis due to Methicillin susceptible Staphylococcus aureus; N18.6 End stage renal disease; J96.01 Acute respiratory failure with hypoxia; I33.0 Acute and subacute infective endocarditis; J18.9 Pneumonia, unspecified organism; R65.21 Severe sepsis with septic shock; E44.0 Moderate protein-calorie malnutrition; I13.2 Hypertensive heart and chronic kidney disease with heart failure and with stage 5 chronic kidney disease, or end stage renal disease; I50.32 Chronic diastolic (congestive) heart failure; I31.3 Pericardial effusion (noninflammatory); G93.40 Encephalopathy, unspecified; I48.91 Unspecified atrial fibrillation; D69.6 Thrombocytopenia, unspecified; R74.8 Abnormal levels of other serum enzymes; Z68.24 Body mass index [BMI] 24.0-24.9, adult; E87.5 Hyperkalemia; D63.8 Anemia in other chronic diseases classified elsewhere; I27.20 Pulmonary hypertension, unspecified; I34.0 Nonrheumatic mitral (valve) insufficiency; Z20.822 Contact with and (suspected) exposure to COVID-19
CPT/HCPCS: 36415; 70450; 71045; 71250; 74018; 74176; 80048; 80053; 80069; 80076; 80202; 80307; 82533; 82805; 82947; 83605; 83690; 83735; 83880; 84100; 84145; 84484; 84550; 85025; 85027; 85379; 85384; 85610; 85652; 85730; 86140; 86317; 86704; 87040; 87070; 87077; 87186; 87205; 87340; 87804; 90935; 93005; 93306; 94002; 94003; 96365; 96375; 99284; 99285; J0282; J0330; J0690; J0692; J1160; J1630; J1644; J2370; J2700; J2704; J3010; J3370; J7030; J7040; J7042; J7050; J7060; P9047; U0003

== ENCOUNTER → 2021-04-19 | Day surgery (SDC) | payer OTHER ==
[~2021-04-19] MED LIST changes: -ALBUTEROL 2.5 MG/3 ML NEB SOL ONE; -IPRATROPIUM BROM 0.5MG/2.5ML ONE; +NA CHLORIDE 0.9% 250 ML ONE; +cloNIDine HCL 0.1 MG TAB PO ONE
[2021-04-19 11:41] VITALS: BMI 22.4
[2021-04-19 13:52] VITALS: TEMP 99; O2SAT 98
[2021-04-19 14:13] VITALS: BP 164/103
[2021-04-19 16:29] LABS: Hematocrit 26.8 % (39.6-49.0)
== END ==
LOC: DS 10:23
PROVIDERS: ATTEND Internal Medicine Nephrology
DX: D64.9 Anemia, unspecified (principal)
CPT/HCPCS: 36415; 86900; 86850; 86901; 85018; 85014; 36430; P9016; J7050

== ENCOUNTER 2021-07-08 00:56 | Emergency (ER) | payer OTHER ==
--- OUTSIDE RECORDS SUMMARY | 2021-07-08 01:36 | XMS REPORT | Continuity of Care Document ---
:1975 Author Organization [facility] t Address [address] [place] [address] Care Team Providers Name Role Phone Pcp MD Primary Care Physician Unavailable ELICIA Attending Clinician Unavailable KARLENE WITT Attending Clinician Unavailable STAN Attending Clinician Unavailable SUE ORTIZ Attending Clinician Unavailable Xena Galvez MD Attending Clinician Annita FAYE Attending Clinician Vikash Arias MD Attending Clinician Layne Dash Attending Clinician Unavailable Naveen Richardson MD Attending Clinician Nithin Mendez MD Attending Clinician Ignacia FAYE Attending Clinician XENA GALVEZ Attending Clinician Unavailable Elias STRAUSS Attending Clinician Unavailable Tam King Attending Clinician Faculty, Surg Attending Clinician Unavailable Elicia FAYE Attending Clinician Doctor Unassigned, Name Attending Clinician Unavailable RACHEL PATIÑO Attending Clinician Unavailable ELICIA Admitting Clinician Unavailable KARLENE WITT Admitting Clinician Unavailable NIXON GRIGGS Admitting Clinician Unavailable RACHEL PATIÑO Admitting Clinician Unavailable Payers Payer Name Policy Type Policy Number Effective Date Expiration Date S harish [facility] STAR [id number] 2017 PLUS 00:00:00 MEDICAID OF [place] [id number] 2019 00:00:00 FORMERLY [facility] STAR [id number] 2018 PLAN 00:00:00 Problems Condition Condition Condition Status Onset Resolution Last Treating Co mments Source Name Details Category Date Date Treatment Clinician Date s/p s/p Disease Active [facility] MV[facility] MVReplace 01-11 [facility] - [facility] - [facility]) - 00:00: Medica l Omar - Omar - 00 Cent er 01/11/21 01/11/21 Endocardit Endocardit Disease Active [facility] is is [facility]11 [facility] - 00:[facility]: Medical 00 [place] Mitral Mitral Disease Active [facility]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 01-11 [facility] - regurgitat regurgitat 00:00: Me dical ion ion 00 Center ESRD (end ESRD (end Disease Active Overview: Univers stage stage 3-11 Added ity of renal renal 00:00: automatic [place] disease) disease) 00 ally from [facility] request Branch for surgery [id number] HYPERTENSI Diagnosis Active 2018-062019-04-02 Memoria VE THALAMI 0-06 22:34:00 l 00:00: [place] HYPERTENSI 00 VE THALAMI Active 03/15/2019 [facility] Hyperkalem Hyperkalem Disease Active [facility] ia ia 02-02kes - 00:00: Medical 00 Center Shock Shock Disease Active [facility] Right Right Disease Active [facility] ventricula ventricula [facility] - r r Medical dysfunctio dysfunctio Ce nter n n Acute Acute Disease Active [facility] blood loss blood loss [facility] anemia anemia [facility] Thrombocyt Thrombocyt Disease Active [facility] openia openia [facility] Hyperglyce Hyperglyce Disease Active [facility] sylwia sylwia [facility] ESRD (end ESRD (end Disease Active [facility] stage stage [facility] - renal renal Medical disease) disease) Center on on dialysis dialysis Delirium Delirium Disease Active [facility] t due to due to [facility] medical medical Medical condition condition Cent er with with behavioral behavioral disturbanc disturbanc e e Essential Essential Disease Active [facility] hypertensi hypertensi [facility] - on on Medical Center Cardiac Cardiac Disease Active [facility] arrest arrest [facility] Cardiogeni Cardiogeni Disease Active [facility] c shock c shock [facility] PEA PEA Disease Active [facility] (Pulseless (Pulseless [facility] - electrical electrical Me dical activity) activity) Cent er Hypovolemi Hypovolemi Disease Active [facility] c shock c shock [facility] Hemorrhagi Hemorrhagi Disease Active [facility] c shock c shock [facility] Metabolic Metabolic Disease Active [facility] acidosis acidosis [facility] Lactic Lactic Disease Active [facility] acidosis acidosis [facility] Hypoglycem Hypoglycem Disease Active [facility] ia ia [facility] Hemothorax Hemothorax Disease Active [facility] on left on left [facility] Coagulopat Coagulopat Disease Active [facility] hy hy [facility] Vasogenic Vasogenic Disease Active [facility] shock shock [facility] Anemia, Anemia, Disease Active [facility] unspecifie unspecifie [facility] - d type d type [facility] Center Acute Acute Disease Active [facility] respirator respirator [facility] - y failure y failure Medi diallo with with Center hypoxia hypoxia HYPERTENSI Diagnosis Active 2019-04-02 Memoria VE 22:34:00 l EMERGENCY [place] HYPERTENSI VE EMERGENCY Active [facility] Allergies, Adverse Reactions, Alerts Allergy Allergy Status Severity Reaction(s) Onset Inactive Treating Comm ents Source Name Type Date Date Clinician NO KNOWN Allergy Active [facility] ALLERGIE [facility] NO KNOWN Drug Active [facility] ALLERGIE Class ity of [facility] Social History Social Habit Start Date Stop Date Quantity Comments Source [facility] History SDOH [facility] - Alcohol Std Medical Cente r Drinks History SDDE [facility] - Alcohol Binge Medical Eleuterio ter Exposure to Not sure [facility] - SARS-CoV-2 [facility] (event) Alcohol intake 2021-01-23 2021-01-[address] [facility] - 00:00:00 00:00:00 non-drinker of Medical Ce nter alcohol (finding) Tobacco use and 2019-08-19 2019-08-19 Never used Universit y of exposure 00:00:00 00:00:00 [facility] History SDOH 2019-02-18 2019-02-[address] [facility] - Alcohol Frequency 00:00:00 00:00:00 Medical Center Smoking Status Start Date Stop Date Source Never smoker [facility] - edical [place] Unknown if ever smoked [facility] Medications Ordered Filled Start Stop Current Ordering Indication Dosage Frequency Signature Comments Components Source Medication Medication Date Date Medication? Clinician (SIG) Name Name NIFEdipine 0 2020- No 90mg Q.5D Take [address] (ADALAT CC) 8 08-04 by mouth 2 L ukes - 90 MG 24 hr 22:58: 00:00 (two) Medi diallo tablet 20 :00 times Center daily. NIFEdipine 2020-0 2020- No 90mg Q.5D Take [address] (ADALAT CC) 8 08-04 by mouth 2 L ukes - 90 MG 24 hr 22:58: 00:00 (two) Medi diallo tablet 20 :00 times Center daily. NIFEdipine 2020-0 2020- No 90mg Q.5D Take [address] (ADALAT CC) 01-11 08-04 by mouth 2 L ukes - 90 MG 24 hr 22:58: 00:00 (two) Medi diallo tablet 20 :00 times Center daily. calcitriol Yes .5ug QD Take 0.[address] (ROCALTROL) 8-03 mcg by Lukes - 0.5 MCG 16:49: mouth Medical capsule 21 daily. [place] cholecalcif Yes 5000U QD Take 5,[address] dori, 8-03 Units by [facility]ukes - vitamin D3, 16:49: mouth Medic al 5,000 unit 21 daily. [place] Tab hydrALAZINE Yes 100mg Q.[id number] Take [address] (APRESOLINE 8-03 [id number] mg by L ukes - ) 100 MG 16:49: 3D mouth 3 Medica l tablet 21 (three) Center times daily. ramipril Yes 10mg QD Take [address] (ALTACE) 10 8-03 by mouth Luke s - MG capsule 16:49: daily. Medic al 21 [place] sevelamer 0 Yes 800mg Take [address] (RENVELA) 8-03 mg by [facility]ukes - 800 mg 16:49: mouth 3 Medical tablet 21 (three) Center times daily with meals. calcitriol Yes .5ug QD Take 0.[address] (ROCALTROL) 8-03 mcg by Lukes - 0.5 MCG 16:49: mouth Medical capsule 21 daily. [place] cholecalcif Yes 5000U QD Take 5,[address] dori, 8-03 Units by [facility] - vitamin D3, 16:49: mouth Medic al 5,000 unit 21 daily. Center Tab hydrALAZINE 0 Yes 100mg Q.[id number] Take [address] (APRESOLINE 8-03 [id number] mg by L ukes - ) 100 MG 16:49: 3D mouth 3 Medica l tablet 21 (three) Center times daily. ramipril 0 Yes 10mg QD Take [address] (ALTACE) 10 8-03 by mouth Luke s - MG capsule 16:49: daily. Medic al 21 Center sevelamer 0 Yes 800mg Take [address] (RENVELA) 8-03 mg by [facility]ukes - 800 mg 16:49: mouth 3 Medical tablet 21 (three) Center times daily with meals. calcitriol Yes .5ug QD Take 0.[address] (ROCALTROL) 8-03 mcg by [facility]ukes - 0.5 MCG 16:49: mouth Medical capsule 21 daily. Center cholecalcif Yes 5000U QD Take 5,[address] dori, 8-03 Units by [facility]ukes - vitamin D3, 16:49: mouth Medic al 5,000 unit 21 daily. Center Tab hydrALAZINE Yes 100mg Q.[id number] Take [address] (APRESOLINE 8-03 [id number] mg by L ukes - ) 100 MG 16:49: 3D mouth 3 Medica l tablet 21 (three) Center times daily. ramipril 0 Yes 10mg QD Take [address] (ALTACE) 10 8-03 by mouth Luke s - MG capsule 16:49: daily. Medic al 21 Center sevelamer 0 Yes 800mg Take [address] (RENVELA) 8-03 mg by [facility]ukes - 800 mg 16:49: mouth 3 Medical tablet 21 (three) Center times daily with meals. minoxidiL 0 Yes 1{tbl} QD Take [address] (LONITEN) 5-24 tablet by [facility]ukes - 2.5 MG 00:00: mouth Medical tablet 00 daily. Center terazosin 0 Yes 1{capsu Take [address] (HYTRIN) 10 5-24 le} capsule by [facility] - MG capsule 00:00: mouth 2 Medi diallo 00 (two) Center times daily as needed. minoxidiL 0 Yes 1{tbl} QD Take [address] (LONITEN) 5-24 tablet by [facility]ukes - 2.5 MG 00:00: mouth Medical tablet 00 daily. [place] terazosin 0 Yes 1{capsu Take [address] (HYTRIN) 10 5-24 le} capsule by [facility] - MG capsule 00:00: mouth 2 Medi diallo 00 (two) Center times daily as needed. minoxidiL Yes 1{tbl} QD Take [address] (LONITEN) 5-24 tablet by [facility]ukes - 2.5 MG 00:00: mouth Medical tablet 00 daily. [place] terazosin Yes 1{capsu Take [address] (HYTRIN) 10 5-24 le} capsule by [facility] - MG capsule 00:00: mouth 2 Medi diallo 00 (two) Center times daily as needed. metoprolol Yes 1{tbl} QD Take [address] tartrate 5-17 tablet by Lukes - (LOPRESSOR) 00:00: mouth Medic al 100 MG 00 daily. [place] tablet metoprolol 0 Yes 1{tbl} QD Take [address] tartrate 5-17 tablet by [facility]ukes - (LOPRESSOR) 00:00: mouth Medic al 100 MG 00 daily. [place] tablet metoprolol Yes 1{tbl} QD Take [address] tartrate 5-17 tablet by Lukes - (LOPRESSOR) 00:00: mouth Medic al 100 MG 00 daily. [place] tablet SEVELAMER 2019-0 Yes Take by [facility] ers HCL ORAL 6-08 mouth. ity of 14:19: [address] METOPROLOL 2019-0 Yes Take by Uni vers TARTRATE 6-08 mouth. ity of ORAL 14:19: [address] terazosin 2019-0 Yes Take by [facility] ers HCl (HYTRIN 6-08 mouth. ity of ORAL) 14:19: [address] RAMIPRIL 2019-0 Yes [facility] 6-08 mouth. ity of 14:19: [address] SEVELAMER 2020-0 Yes Take by Univ ers HCL ORAL 6-08 mouth. ity of 14:19: [address] METOPROLOL 0 Yes Take by Uni vers TARTRATE 6-08 mouth. ity of ORAL 14:19: [address] terazosin 2019-0 Yes Take by Univ ers HCl (HYTRIN 6-08 mouth. ity of ORAL) 14:19: [address] RAMIPRIL Yes Take by Unive rs ORAL 6-08 mouth. ity of 14:19: [address] SEVELAMER 2019-0 Yes Take by Univ ers HCL ORAL 6-08 mouth. ity of 14:19: [address] METOPROLOL Yes Take by Uni vers TARTRATE 6-08 mouth. ity of ORAL 14:19: [address] terazosin 2019-0 Yes Take by Univ ers HCl (HYTRIN 6-08 mouth. ity of ORAL) 14:19: [address] RAMIPRIL Yes Take by Unive rs ORAL 6-08 mouth. ity of 14:19: [address] No known No Univers medications ity [facility] No known No Univers medications ity [facility] No known No Univers medications ity [facility] No known No Univers medications ity [facility] No known No Univers medications ity [facility] No known No Univers medications ity [facility] No known No [facility] Vital Name Observation Time Observation Value Comments Source HEIGHT 2021-04-05 15:33:00 188 cm WEIGHT 2021-04-05 15:33:00 63.504 kg WEIGHT 2021-03-22 09:00:00 63.866 kg WEIGHT 2021-03-20 18:01:00 62.4 kg WEIGHT 2021-03-17 12:00:00 66.4 kg WEIGHT 2021-03-15 12:20:00 71.4 kg WEIGHT 2021-03-14 06:00:00 71.4 kg WEIGHT 2021-03-13 10:30:00 71.4 kg WEIGHT 2021-03-13 04:00:00 76.4 kg WEIGHT 2021-03-11 10:37:00 77.2 kg WEIGHT 2021-03-09 11:00:00 80.2 kg WEIGHT 2021-03-07 16:11:00 74 kg WEIGHT 2021-03-04 11:00:00 77 kg WEIGHT 2021-03-04 08:15:00 80 kg WEIGHT 2021-03-02 14:10:00 69 kg WEIGHT 2021-02-28 17:45:00 69 kg WEIGHT 2021-02-28 14:30:00 72 kg WEIGHT 2021-02-24 15:35:00 72 kg WEIGHT 2021-02-22 11:30:00 73 kg WEIGHT 2021-02-22 08:45:00 76 kg WEIGHT 2021-02-20 12:15:00 76 kg WEIGHT 2021-02-20 09:10:00 79 kg WEIGHT 2021-02-18 12:45:00 78.9 kg WEIGHT 2021-02-17 12:00:00 81.9 kg WEIGHT 2021-02-15 15:45:00 82.6 kg WEIGHT 2021-02-15 06:00:00 85.6 kg WEIGHT 2021-02-14 01:00:00 88.5 kg WEIGHT 2021-02-12 13:00:00 84.6 kg WEIGHT 2021-02-11 05:00:00 82.736 kg WEIGHT 2021-02-10 11:45:00 81.5 kg WEIGHT 2021-02-10 06:00:00 84.505 kg WEIGHT 2021-02-09 05:00:00 79.788 kg WEIGHT 2021-02-08 13:45:00 78.1 kg WEIGHT 2021-02-08 06:00:00 81.103 kg WEIGHT 2021-02-06 15:10:00 72.4 kg WEIGHT 2021-02-05 03:00:00 72.394 kg WEIGHT 2021-02-03 05:00:00 72.213 kg WEIGHT 2021-01-31 06:00:00 70.217 kg WEIGHT 2021-01-30 17:30:00 68.2 kg WEIGHT 2021-01-30 13:30:00 70.2 kg WEIGHT 2021-01-30 04:15:00 70.217 kg WEIGHT 2021-01-29 05:15:00 69 kg WEIGHT 2021-01-28 13:00:00 69.6 kg WEIGHT 2021-01-28 06:00:00 73.074 kg WEIGHT 2021-01-27 05:00:00 72.621 kg WEIGHT 2021-01-26 06:00:00 73.301 kg WEIGHT 2021-01-24 06:00:00 79.7 kg WEIGHT 2021-01-23 06:00:00 80.8 kg WEIGHT 2021-01-21 06:00:00 76.4 kg WEIGHT 2021-01-19 04:00:00 78.5 kg WEIGHT 2021-01-18 06:00:00 79.5 kg WEIGHT 2021-01-17 05:00:00 80.6 kg WEIGHT 2021-01-16 06:09:00 77.021 kg WEIGHT 2021-01-15 06:00:00 77.6 kg WEIGHT 2021-01-14 16:00:00 75.8 kg WEIGHT 2021-01-14 12:00:00 79.3 kg WEIGHT 2021-01-14 06:00:00 79.3 kg WEIGHT 2021-01-11 04:00:00 81.5 kg HEIGHT 2021-01-10 15:00:00 188 cm WEIGHT 2021-01-10 15:00:00 84 kg WEIGHT 2021-03-22 09:00:00 63.866 kg WEIGHT 2021-03-20 18:01:00 62.4 kg WEIGHT 2021-03-17 12:00:00 66.4 kg WEIGHT 2021-03-15 12:20:00 71.4 kg WEIGHT 2021-03-14 06:00:00 71.4 kg WEIGHT 2021-03-13 10:30:00 71.4 kg WEIGHT 2021-03-13 04:00:00 76.4 kg WEIGHT 2021-03-11 10:37:00 77.2 kg WEIGHT 2021-03-09 11:00:00 80.2 kg WEIGHT 2021-03-07 16:11:00 74 kg WEIGHT 2021-03-04 11:00:00 77 kg WEIGHT 2021-03-04 08:15:00 80 kg WEIGHT 2021-03-02 14:10:00 69 kg WEIGHT 2021-02-28 17:45:00 69 kg WEIGHT 2021-02-28 14:30:00 72 kg WEIGHT 2021-02-24 15:35:00 72 kg WEIGHT 2021-02-22 11:30:00 73 kg WEIGHT 2021-02-22 08:45:00 76 kg WEIGHT 2021-02-20 12:15:00 76 kg WEIGHT 2021-02-20 09:10:00 79 kg WEIGHT 2021-02-18 12:45:00 78.9 kg WEIGHT 2021-02-17 12:00:00 81.9 kg WEIGHT 2021-02-15 15:45:00 82.6 kg WEIGHT 2021-02-15 06:00:00 85.6 kg WEIGHT 2021-02-14 01:00:00 88.5 kg WEIGHT 2021-02-12 13:00:00 84.6 kg WEIGHT 2021-02-11 05:00:00 82.736 kg WEIGHT 2021-02-10 11:45:00 81.5 kg WEIGHT 2021-02-10 06:00:00 84.505 kg WEIGHT 2021-02-09 05:00:00 79.788 kg WEIGHT 2021-02-08 13:45:00 78.1 kg WEIGHT 2021-02-08 06:00:00 81.103 kg WEIGHT 2021-02-06 15:10:00 72.4 kg WEIGHT 2021-02-05 03:00:00 72.394 kg WEIGHT 2021-02-03 05:00:00 72.213 kg WEIGHT 2021-01-31 06:00:00 70.217 kg WEIGHT 2021-01-30 17:30:00 68.2 kg WEIGHT 2021-01-30 13:30:00 70.2 kg WEIGHT 2021-01-30 04:15:00 70.217 kg WEIGHT 2021-01-29 05:15:00 69 kg WEIGHT 2021-01-28 13:00:00 69.6 kg WEIGHT 2021-01-28 06:00:00 73.074 kg WEIGHT 2021-01-27 05:00:00 72.621 kg WEIGHT 2021-01-26 06:00:00 73.301 kg WEIGHT 2021-01-24 06:00:00 79.7 kg WEIGHT 2021-01-23 06:00:00 80.8 kg WEIGHT 2021-01-21 06:00:00 76.4 kg WEIGHT 2021-01-19 04:00:00 78.5 kg WEIGHT 2021-01-18 06:00:00 79.5 kg WEIGHT 2021-01-17 05:00:00 80.6 kg WEIGHT 2021-01-16 06:09:00 77.021 kg WEIGHT 2021-01-15 06:00:00 77.6 kg WEIGHT 2021-01-14 16:00:00 75.8 kg WEIGHT 2021-01-14 12:00:00 79.3 kg WEIGHT 2021-01-14 06:00:00 79.3 kg WEIGHT 2021-01-11 04:00:00 81.5 kg HEIGHT 2021-01-10 15:00:00 188 cm WEIGHT 2021-01-10 15:00:00 84 kg Systolic blood 2019-08-19 16:08:00 121 mm[Hg] [facility] Diastolic blood 2019-08-19 16:08:00 57 mm[Hg] Unive rsity [facility] Heart rate 2019-08-19 16:08:00 76 /min [facility] Body temperature 2019-08-19 16:08:00 36.5 [place] [facility] Respiratory rate 2019-08-19 16:08:00 18 /min [facility] height 2019-08-19 16:08:00 180.3 cm [facility] Body weight 2019-08-19 16:08:00 86.773 kg [facility] BMI 2019-08-19 16:08:00 26.68 kg/m2 [facility] Heart rate 2021-02-02 12:00:00 63 /min [facility] Body temperature 2021-02-02 12:00:00 37.44 [place] [facility] Respiratory rate 2021-02-02 12:00:00 21 /min [facility] Oxygen saturation in 2021-02-02 12:00:00 100 /min [facility] - Arterial blood by Medical Ce nter Pulse oximetry Heart rate 2021-02-02 10:45:00 63 /min [facility] Respiratory rate 2021-02-02 10:45:00 20 /min [facility] Oxygen saturation in 2021-02-02 10:45:00 100 /min [facility] - Arterial blood by Medical Ce nter Pulse oximetry Body temperature 2021-02-02 08:00:00 37.33 [place] [facility] Systolic blood 2021-02-02 03:46:00 172 mm[Hg] [facility] Diastolic blood 2021-02-02 03:46:00 89 mm[Hg] [facility] Body weight 2021-01-31 06:00:00 70.217 kg [facility] BMI 2021-01-31 06:00:00 19.88 kg/m2 [facility] Body height 2021-01-10 15:00:00 188 cm [facility] Procedures Procedure Date / Time Performing Clinician Source Performed POCT-GLUCOSE METER 2021-02-[address] [facility] - 07:25:00 [facility] POCT-GLUCOSE METER 2021-02-[address] [facility] - 03:45:00 [facility] PROTHROMBIN TIME/INR 2021-02-[address] [facility] - 03:36:00 [facility] CALCIUM, IONIZED 2021-02-[address] [facility] - 03:36:00 [facility] CBC W/PLT COUNT & AUTO [facility] - DIFFERENTIAL 03:36:00 [facility] MAGNESIUM 2021-02-02 [facility] Kasia Mcgrath [facility] - 03:36:00 [facility] PHOSPHORUS 2021-02-02 [facility] - 03:36:00 [facility] BASIC METABOLIC PANEL (7) 2021-02-[address] [place] [address] [facility] - 03:36:00 [facility] PTH, INTACT 2021-02-[address] [facility] - 03:36:00 [facility] XR CHEST 1 VIEW PORTABLE / 2021-02-[address] [facility] - BEDSIDE 00:16:00 [facility] POCT-GLUCOSE METER 2021-02-[address] [facility] - 23:57:00 [facility] POCT-GLUCOSE METER 2021-02-[address] [facility] - 15:26:00 [facility] HEMODIALYSIS INPATIENT 2021-02-[address] [facility] - 14:59:53 [facility] POCT-GLUCOSE METER 2021-02-[address] [facility] - 14:47:[address] [facility] CT CHEST WITHOUT IV CONTRAST 2021-02-[address] [facility] - 12:29:00 [facility] POCT-GLUCOSE METER 2021-02-[address] [facility] - 11:36:00 [facility] CALCIUM, IONIZED 2021-02-[address] [facility] - 04:21:00 [facility] CBC W/PLT COUNT & AUTO 2021-02-[address] [facility] - DIFFERENTIAL 04:21:00 [facility] MAGNESIUM 2021-02-[address] [facility] - 04:21:00 [facility] PHOSPHORUS 2021-02-[address] [facility] - 04:21:00 [facility] BASIC METABOLIC PANEL (7) 2021-02-[address] [place] [facility] - 04:21:00 [facility] PROTHROMBIN TIME/INR 2021-02-[address] [facility] - 04:21:00 [facility] POCT-GLUCOSE METER 2021-02-[address] [facility] - 01:05:00 [facility] XR CHEST 1 VIEW PORTABLE / 2021-02-[address] [facility] BED[facility] 00:21:00 [facility] POCT-GLUCOSE METER 2021-01-[address] [facility] - 21:51:00 [facility] HEMOGLOBIN AND HEMATOCRIT 2021-01-[address] [facility] - 17:12:00 [facility] POCT-GLUCOSE METER 2021-01-[address] [facility] - 11:25:00 [facility] POCT-GLUCOSE METER 2021-01-[address] [facility] - 07:13:00 [facility] PT/APTT 2021-01-[address] [facility] - 04:25:00 [facility] APTT 2021-01-31 Beram, Luz [facility] - 04:25:00 [facility] BLOOD GAS, ARTERIAL 2021-01-31 Beram, Jihad [facility] - 04:25:00 [facility] CALCIUM, IONIZED 2021-01-31 Beram, Jihad [facility] - 04:25:00 [facility] Center LACTIC ACID, ARTERIAL 2021-01-31 Richeybulmaro Mcgrath, Kasia [facility]00 [facility] CBC W/PLT COUNT & AUTO 2021-01-[address] [facility] - DIFFERENTIAL 04:25:00 [facility] MAGNESIUM 2021-01-31 Richey Mcgrath, Kasia [facility] - 04:[facility]:00 [facility] PHOSPHORUS 2021-01-31 Richey Mcgrath, Kasia [facility] - 04:[facility]:00 [facility] BASIC METABOLIC PANEL (7) 2021-01-[address] [facility] - 04:25:00 [facility] XR CHEST 1 VIEW PORTABLE / 2021-01-[address] [facility] 00:45:00 [facility] PREPARE LEUKO-REDUCED RBC 2021-01-[address] [facility] - 23:54:00 [facility] Center BLOOD GAS, ARTERIAL 2021-01-[address] [facility] - 21:04:00 [facility] BLOOD GAS, ARTERIAL 2021-01-[address] [facility] - 21:03:00 [facility] SODIUM NA-STAT LAB 2021-01-[address] [facility] - 21:03:00 [facility] POTASSIUM-STAT LAB 2021-01-[address] [facility] - 21:03:00 [facility] GLUCOSE-STAT LAB 2021-01-[address] [facility] - 21:03:00 [facility] HGB/HCT (H&H) - STAT LAB 2021-01-[address] [facility] - 21:03:00 [facility] PROTHROMBIN TIME/INR 2021-01-[address] [facility] - 19:20:00 Medical Center MAGNESIUM 2021-01-30 Beram, Luz [facility] - 19:20:00 [facility] CALCIUM, IONIZED 2021-01-30 Beram, Jihad [facility] - 19:20:00 [facility] BASIC METABOLIC PANEL (7) 2021-01-[address] [facility]00 [facility] POCT-GLUCOSE METER 2021-01-[address] [facility] - 18:36:00 [facility] HEMODIALYSIS INPATIENT 2021-01-[address] [facility] - 14:24:20 [facility] Center POCT-GLUCOSE METER 2021-01-[address] [facility] - 12:27:00 [facility] Center PROTHROMBIN TIME/INR 2021-01-[address] [facility] - 12:18:00 [facility] Center POCT-GLUCOSE METER 2021-01-[address] [facility] - 06:08:00 [facility] Center BLOOD GAS, ARTERIAL 2021-01-30 Beram, Jijoe [facility] - 04:30:00 [facility] Center BLOOD GAS, ARTERIAL 2021-01-30 Beram, Luz [facility] - 02:05:00 [facility] Center CALCIUM, IONIZED 2021-01-30 Beram, Luz [facility] - 02:05:00 [facility] Center LACTIC ACID, ARTERIAL 2021-01-30 Kaiden Mcgrath, Kasia [facility] 02:05:00 [facility] OXYGEN SATURATION, MEASURED 2021-01-[address] [facility] - 02:05:00 [facility] PT/APTT 2021-01-[address] [facility] - 02:04:00 [facility] APTT 2021-01-[address] [facility] - 02:04:00 [facility] CBC W/PLT COUNT & AUTO 2021-01-30 [facility] Mcgrath, Kasia [facility] - DIFFERENTIAL 02:04:00 [facility] MAGNESIUM 2021-01-30 [facility] Mcgrath, Kasia [facility]:00 [facility] PHOSPHORUS 2021-01-30 [facility] Mcgrath, Kasia [facility] - 02:04:00 [facility] BASIC METABOLIC PANEL (7) 2021-01-30 [facility] Alcides, Kasia [facility] 02:[facility]:00 [facility] XR CHEST 1 VIEW PORTABLE / 2021-01-30 [facility] TulsajiaKasia [facility] - BEDSIDE 00:36:00 [facility] POCT-GLUCOSE METER 2021-01-29 Valluri Yuk[address] Hailetik [facility] - 23:18:00 [facility] TRANSFUSE LEUKO-REDUCED RED 2021-01-[address] [facility] - BLOOD CELLS 23:08:22 [facility] CBC W/PLT COUNT & AUTO 2021-01-29 [facility] Alcides, Kasia [facility] - DIFFERENTIAL 19:08:00 [facility] TRANSFUSE LEUKO-REDUCED RED 2021-01-29 Dilshad Vera Back [facility] - BLOOD CELLS 18:10:59 [facility] POCT-GLUCOSE METER 2021-01-29 Valluri Yuko Nixon [facility] - 18:04:00 [facility] PROTHROMBIN TIME/INR 2021-01-29 Martin Yungbud Back [facility] - 17:57:[address] [facility] [address] BRAIN WITHOUT IV CONTRAST 2021-01-29 [address]in [facility] - 17:28:00 [facility] CTA BRAIN 2021-01-29 Vera Yung Nazanin [facility] - 17:28:00 [facility] APTT 2021-01-[address] [facility] - 15:06:00 [facility] PROTHROMBIN TIME/INR 2021-01-[address] [facility] - 15:06:00 [facility] ABORH, MANUAL 2021-01-[address] [facility] - 13:49:00 [facility] POCT-GLUCOSE METER 2021-01-[address] [facility] - 12:15:[address] [facility] [address] BRAIN WITHOUT IV CONTRAST 2021-01-[address] [facility] - 09:32:00 [facility] RED BLOOD CELL COUNT 2021-01-[address] [facility] - 09:12:00 [facility] PT/APTT 2021-01-[address] [facility] - 09:12:00 [facility] POCT-GLUCOSE METER 2021-01-[address] [facility] - 07:18:00 [facility] PHOSPHORUS 2021-01-[address] [facility] - 06:11:00 [facility] MAGNESIUM 2021-01-[address] [facility] - 06:11:00 [facility] APTT 2021-01-[address] [facility] - 06:11:00 [facility] BLOOD GAS, ARTERIAL 2021-01-[address] [facility] - 06:11:00 [facility] CALCIUM, IONIZED 2021-01-29 [facility], Luz [facility] - 06:11:00 [facility] LACTIC ACID, ARTERIAL 2021-01-29 K[facility] Rubio [facility]00 [facility] OXYGEN SATURATION, MEASURED 2021-01-[address] [facility] - 06:11:00 [facility] CBC W/PLT COUNT & AUTO 2021-01-[address] [facility] - DIFFERENTIAL 06:11:00 [facility] HEPATIC FUNCTION PANEL 2021-01-[address] [facility] - 06:11:00 [facility] DIGOXIN LEVEL 2021-01-[address] [facility] - 06:11:00 [facility] BASIC METABOLIC PANEL (7) 2021-01-[address] [facility] - 06:11:00 [facility] XR CHEST 1 VIEW PORTABLE / 2021-01-[address] [facility] - BEDSIDE 00:52:00 [facility] POCT-GLUCOSE METER 2021-01-[address] [facility] [facility] - 00:43:00 [facility] POCT-GLUCOSE METER 2021-01-28 Valluri, Yuko Alicea [facility] - 18:17:00 [facility] BLOOD GAS, ARTERIAL 2021-01-[address] [facility] - 18:13:00 [facility] POTASSIUM 2021-01-[address] [facility] - 18:11:00 [facility] MAGNESIUM 2021-01-[address] [facility] - 18:11:00 [facility] PHOSPHORUS 2021-01-[address] [facility] - 18:11:00 [facility] SODIUM 2021-01-[address] [facility] - 18:11:00 [facility] XR CHEST 1 VIEW PORTABLE / 2021-01-28 Darya [facility]kson [facility] 17:33:00 [facility] HEMODIALYSIS INPATIENT 2021-01-28 Vasile Moran [facility] - 12:55:00 [facility] POCT-GLUCOSE METER 2021-01-[address] [facility] - 11:44:00 [facility] BASIC METABOLIC PANEL (7) 2021-01-[address] [facility] - 08:38:00 [facility] MAGNESIUM 2021-01-[address] [facility] - 08:38:00 [facility] PHOSPHORUS 2021-01-[address] [facility] - 08:38:00 [facility] PROTHROMBIN TIME/INR 2021-01-[address] [facility] - 08:36:00 [facility] POCT-GLUCOSE METER 2021-01-[address] [facility] - 06:13:00 [facility] POTASSIUM 2021-01-28 Valluana maria, Yuko Nixon [facility] - 04:58:00 [facility] APTT 2021-01-28 Beram, Luz [facility] - 04:58:00 [facility] BLOOD GAS, ARTERIAL 2021-01-28 Beram, Joyceremy [facility] - 04:58:00 [facility] LACTIC ACID, ARTERIAL 2021-01-28 [facility] OXYGEN SATURATION, MEASURED 2021-01-28 [facility], Kasia [facility] 04:[facility]00 [facility] CBC W/PLT COUNT & AUTO 2021-01-28 [facility], Kasia [facility] - DIFFERENTIAL 04:58:00 [facility] MAGNESIUM 2021-01-28 [facility], Kasia [facility] - 04:58:00 [facility] PHOSPHORUS 2021-01-28 [facility], Kasia [facility] - 04:58:00 [facility] HEPATIC FUNCTION PANEL 2021-01-[address] [facility] - 04:58:00 [facility] PROTHROMBIN TIME/INR 2021-01-[address] [facility] - 04:58:00 [facility] CALCIUM, IONIZED 2021-01-28 Ber, Jessejoe [facility] - 04:57:00 [facility] XR CHEST 1 VIEW PORTABLE / 2021-01-28 [facility] 03:13:00 [facility] POCT-GLUCOSE METER 2021-01-[address] [facility] - 23:51:00 [facility] POTASSIUM 2021-01-[address] [facility] - 20:43:00 [facility] BLOOD GAS, ARTERIAL 2021-01-27 Uk, Nddorian Bowen [facility] - 20:43:00 [facility] LACTIC ACID, ARTERIAL 2021-01-27 Ukah, Nduka Bowen [facility] - 20:43:00 [facility] Center CBC (HEMOGRAM ONLY) 2021-01-[address] [facility] - 20:43:00 [facility] XR CHEST 1 VIEW PORTABLE / 2021-01-[address] [facility] 20:25:00 [facility] POTASSIUM 2021-01-27 Beatriz, Yuko Hailetik [facility] - 18:02:00 [facility] MAGNESIUM 2021-01-27 Neagra, Vasile [facility] - 18:02:00 [facility] PHOSPHORUS 2021-01-27 Neagra, Christopher [facility] - 18:02:00 [facility] SODIUM 2021-01-27 Neagra, Christopher [facility] - 18:02:00 [facility] POCT-GLUCOSE METER 2021-01-27 Elizabethri, Yuko Hailetik [facility] - 11:42:00 [facility] MAGNESIUM 2021-01-27 Beram, Luz [facility] - 11:18:00 [facility] PHOSPHORUS 2021-01-27 Neagra, Vasile [facility] - 11:18:00 [facility] POTASSIUM 2021-01-27 Valluri, Yuko Nixon [facility] - 11:18:00 [facility] Center PROTHROMBIN TIME/INR 2021-01-[address] [facility] - 06:40:00 [facility] BASIC METABOLIC PANEL (7) 2021-01-[address] [facility] - 06:40[facility]00 [facility] POTASSIUM 2021-01-27 Valluri, Yuko Alicea [facility] - 03:31:00 [facility] Center APTT 2021-01-27 Beram, Luz [facility] - 03:31:00 [facility] Center CALCIUM, IONIZED 2021-01-27 Beram, Jihad [facility] - 03:31:00 [facility] Center LACTIC ACID, ARTERIAL 2021-01-27 [facility] Rubio [facility] OXYGEN SATURATION, MEASURED 2021-01-[address] [facility] - 03:31:00 [facility] CBC W/PLT COUNT & AUTO 2021-01-27 Richey Mcgrath, Kasia [facility] - DIFFERENTIAL 03:31:00 [facility] MAGNESIUM 2021-01-27 Richeybulmaro Pickarda, Kasia [facility] - 03:31:00 [facility] PHOSPHORUS 2021-01-27 Kaiden Pickarda, Kasia [facility] - 03:31:00 [facility] HEPATIC FUNCTION PANEL 2021-01-[address] [facility] - 03:31:00 [facility] BLOOD GAS, ARTERIAL 2021-01-27 Beram, Luz [facility] - 03:30:00 [facility] XR CHEST 1 VIEW PORTABLE / 2021-01-27 [facility] Alcides, Kasia [facility] 00:45:00 [facility] ID INSERT 2021-01-[address] [facility] - CATH,ART,PERCUT,SHORTTERM 23:51:37 [facility] POCT-GLUCOSE METER 2021-01-26 Valluri, Yuko Lillyk [facility] - 22:02:00 [facility] PHOSPHORUS 2021-01-26 Neagra, Chuckyopher [facility] - 20:28:00 [facility] CALCIUM, IONIZED 2021-01-26 Beram, Jihad [facility] - 20:28:00 [facility] MAGNESIUM 2021-01-26 Beram, Jihad [facility] - 20:28:00 [facility] BASIC METABOLIC PANEL (7) 2021-01-26 Richey McgrathKasia hermosillo [facility]:28:00 [facility] POTASSIUM 2021-01-26 Valluri, Yuko Nixon [facility] - 16:49:00 [facility] POCT-GLUCOSE METER 2021-01-26 Valluri, Sri Nixon [facility] - 16:41:00 [facility] POTASSIUM 2021-01-26 Valluri, Sri Nixon [facility] - 12:13:00 [facility] POCT-GLUCOSE METER 2021-01-26 Valluri, Sri Nixon [facility] - 12:06:00 [facility] PREPARE RBC 2021-01-[address] [facility] - 08:26:[address] [facility] PREPARE RBC 2021-01-[address] [facility] - 08:24:[address] [facility] MAGNESIUM 2021-01-[address] [facility] - 08:13:00 [facility] PHOSPHORUS 2021-01-26 Neagra, Vasile [facility] - 08:13:00 [facility] POTASSIUM 2021-01-[address] [facility] - 08:13:00 [facility] Center POCT-GLUCOSE METER 2021-01-26 Valluri, Yuko Alicea [facility] - 08:13:00 [facility] BLOOD GAS, ARTERIAL 2021-01-26 Beram, Jessehad [facility] - 06:16:00 [facility] BLOOD GAS, ARTERIAL 2021-01-26 Beram, Jihad [facility] - 04:48:00 [facility] BLOOD GAS, ARTERIAL 2021-01-26 Beram, Jihad [facility] - 04:04:00 [facility] Center APTT 2021-01-26 Beram, Jessehad [facility] - 04:02:00 [facility] CALCIUM, IONIZED 2021-01-26 Beram, Jihad [facility] - 04:02:00 [facility] LACTIC ACID, ARTERIAL 2021-01-26 RicheyKasia Aguirre [facility] OXYGEN SATURATION, MEASURED 2021-01-[address] [facility] - 04:02:00 [facility] CBC W/PLT COUNT & AUTO 2021-01-26 Richey Kasia Mcgrath [facility] DIFFERENTIAL 04:02:00 [facility] MAGNESIUM 2021-01-26 Richey Mcgrath, Kasia [facility] - 04:[facility]:00 [facility] PHOSPHORUS 2021-01-26 Richey Mcgrath, Kasia [facility] - 04:02:00 [facility] PROTHROMBIN TIME/INR 2021-01-26 Richey Mcgrath, Kasia [facility] - 04:02:00 [facility] DIGOXIN LEVEL 2021-01-[address] [facility] - 04:02:00 [facility] BASIC METABOLIC PANEL (7) 2021-01-[address] [facility] - 04:02:00 [facility] XR CHEST 1 VIEW PORTABLE / 2021-01-[address] [facility] - BED[facility]IDE 00:20:00 [facility] POCT-GLUCOSE METER 2021-01-25 Valluri, Yuko Alicea [facility] - 21:59:00 [facility] BASIC METABOLIC PANEL (7) 2021-01-[address] [facility]00 [facility] MAGNESIUM 2021-01-25 Beram, Joyceremy [facility] - 20:28:00 [facility] POCT-GLUCOSE METER 2021-01-25 Valluri, Yuko Alicea [facility] - 18:07:00 [facility] XR ABDOMEN / KUB 1 VIEW 2021-01-[address] [facility] - 18:01:00 [facility] POTASSIUM 2021-01-25 Neagra, Rafater [facility] - 16:07:00 [facility] PHOSPHORUS 2021-01-25 Beram, Luz [facility] - 16:07:00 [facility] MAGNESIUM 2021-01-25 Neagra, Christopher [facility] - 16:07:00 [facility] SODIUM 2021-01-25 Neagra, Christopher [facility] - 16:07:00 [facility] BLOOD GAS, ARTERIAL 2021-01-25 Beram, Jihad [facility] - 16:07:00 [facility] CBC W/PLT COUNT & AUTO 2021-01-[address] [facility] - DIFFERENTIAL 13:55:00 [facility] POCT-GLUCOSE METER 2021-01-25 Valluri, Yuko Alicea [facility] - 13:20:00 [facility] PHOSPHORUS 2021-01-25 Beram, Jihad [facility] - 11:42:00 [facility] BASIC METABOLIC PANEL (7) 2021-01-25 Vas[address] [facility] - 11:42:00 [facility] MAGNESIUM 2021-01-25 Neagra, Christopher [facility] - 11:42:00 [facility] Center CALCIUM, IONIZED 2021-01-25 Neagra, Christopher [facility] - 11:42:00 [facility] POCT-GLUCOSE METER 2021-01-[address] [facility] - 08:07:00 [facility] BLOOD GAS, ARTERIAL 2021-01-25 Beram, Jihad [facility] - 03:29:00 [facility] APTT 2021-01-25 Beram, Jihad [facility] - 03:28:00 [facility] CALCIUM, IONIZED 2021-01-25 Beram, Jihad [facility] - 03:28:00 [facility] LACTIC ACID, ARTERIAL 2021-01-25 [facility], Kasia [facility] - 03:28:00 [facility] OXYGEN SATURATION, MEASURED 2021-01-25 [facility]00 [facility] CBC W/PLT COUNT & AUTO 2021-01-25 [facility] - DIFFERENTIAL 03:28:00 [facility] BASIC METABOLIC PANEL (7) 2021-01-25 Richey McgrathKasia hermosillo [facility] 03:28[facility]00 [facility] MAGNESIUM 2021-01-25 Richey Mcgrath, Kasia [facility]00 [facility] PHOSPHORUS 2021-01-25 Richey Mcgrath, Kasia [facility] - 03:[facility]:00 [facility] PROTHROMBIN TIME/INR 2021-01-25 [facility] 03:28:00 [facility] XR CHEST 1 VIEW PORTABLE / 2021-01-[address] [facility] B[facility]IDE 02:31:00 [facility] POCT-GLUCOSE METER 2021-01-[address] [facility] - 00:13:00 [facility] PREPARE LEUKO-REDUCED 2021-01-[address] [facility] - PLATELETS 23:55:00 [facility] PREPARE PLASMA 2021-01-[address] [facility] - 23:55:00 [facility] PREPARE PLATELETS 2021-01-[address] [facility] - 23:55:[address] [facility] PREPARE PLASMA 2021-01-[address] [facility] - 23:54:00 [facility] PREPARE RBC 2021-01-[address] [facility] - 23:54:[address] [facility] PREPARE LEUKO-REDUCED 2021-01-[address] - PLATELETS 23:54:00 [facility] SODIUM NA-STAT LAB 2021-01-[address] [facility] - 21:42:00 [facility] POTASSIUM-STAT LAB 2021-01-[address] [facility] - 21:42:00 [facility] GLUCOSE-STAT LAB 2021-01-[address] [facility] - 21:42:00 [facility] HGB/HCT (H&H) - STAT LAB 2021-01-[address] [facility] - 21:42:00 [facility] BLOOD GAS, ARTERIAL 2021-01-[address] [facility] - 21:41:00 [facility] PHOSPHORUS 2021-01-24 Beram, Luz [facility] - 18:16:00 [facility] BASIC METABOLIC PANEL (7) 2021-01-[address] [facility] - 18:16:00 [facility] MAGNESIUM 2021-01-24 Beram, Luz [facility] - 18:16:00 [facility] CBC W/PLT COUNT & AUTO 2021-01-[address] [facility] - DIFFERENTIAL 12:21:00 [facility] PHOSPHORUS 2021-01-24 Beram, Jihad [facility] - 10:25:00 [facility] POTASSIUM 2021-01-24 Beram, Jihad [facility] - 10:25:00 [facility] Center MAGNESIUM 2021-01-24 Beram, Jihad [facility] - 10:25:00 [facility] BLOOD GAS, ARTERIAL 2021-01-24 Beram, Jihad [facility] - 10:25:00 [facility] POCT-GLUCOSE METER 2021-01-[address] [facility] - 08:56:00 [facility] APTT 2021-01-24 Beram, Jessesabinoremy [facility] - 03:18:00 [facility] BLOOD GAS, ARTERIAL 2021-01-24 Beram, Jihad [facility] - 03:18:00 [facility] CALCIUM, IONIZED 2021-01-24 Beram, Jihad [facility] - 03:18:00 [facility] LACTIC ACID, ARTERIAL 2021-01-24 [facility]:18[facility]00 [facility] OXYGEN SATURATION, MEASURED 2021-01-24 [facility], Kasia [facility] - 03:18:00 [facility] BASIC METABOLIC PANEL (7) 2021-01-24 [facility]00 [facility] MAGNESIUM 2021-01-24 [facility], Kasia [facility]00 [facility] PHOSPHORUS 2021-01-24 [facility], Kasia [facility] - 03:[facility]:00 [facility] PROTHROMBIN TIME/INR 2021-01-24 [facility], Kasia [facility] - 03:18:00 [facility] CBC W/PLT COUNT & AUTO 2021-01-[address] [facility] - DIFFERENTIAL 03:18:00 [facility] HEPATIC FUNCTION PANEL 2021-01-[address] [facility] - 03:18:00 [facility] XR CHEST 1 VIEW PORTABLE / 2021-01-24 [facility] 01:39:00 [facility] CBC W/PLT COUNT & AUTO 2021-01-[address] [facility] - DIFFERENTIAL 00:31:00 [facility] BLOOD GAS, ARTERIAL 2021-01-24 [place], Uselyn [facility] - 00:31:00 [facility] LACTIC ACID, ARTERIAL 2021-01-24 [place], Usejosiah [facility] - 00:31:00 [facility] PREPARE LEUKO-REDUCED RBC 2021-01-23 Elin [facility]quez [facility] 23:54:00 [facility] PREPARE RBC 2021-01-[address] [facility] - 23:54:00 [facility] TRANSFUSE LEUKO-REDUCED RED 2021-01-23 [place], Uselyn [facility] - BLOOD CELLS 23:42:34 [facility] POCT-GLUCOSE METER 2021-01-[address] [facility] - 23:10:00 [facility] TRANSFUSE PLASMA 2021-01-23 Jeanette, Zaira [facility] - 21:55:06 [facility] BASIC METABOLIC PANEL (7) 2021-01-[address] [facility] 21:26:00 [facility] PROTHROMBIN TIME/INR 2021-01-[address] [facility] - 21:26:00 [facility] APTT 2021-01-23 [place], Uselyn [facility] - 21:26:00 [facility] FIBRINOGEN 2021-01-23 [place], Uselyn [facility] - 21:26:00 [facility] MAGNESIUM 2021-01-23 [place], Uselyn [facility] - 21:26:00 [facility] PHOSPHORUS 2021-01-23 [place], Uselyn [facility] - 21:26:00 [facility] CALCIUM, IONIZED 2021-01-23 [place], Uselyn [facility] - 21:26:00 [facility] CBC W/PLT COUNT & AUTO 2021-01-23 [place], Uselyn [facility] - DIFFERENTIAL 21:26:00 [facility] BLOOD GAS, ARTERIAL 2021-01-23 [place], Uselyn [facility] - 21:26:00 [facility] TRANSFUSE LEUKO-REDUCED 2021-01-23 Jeanette, Zaira [facility] - PLATELETS 20:46:34 [facility] TRANSFUSE LEUKO-REDUCED RED 2021-01-23 Richey Kasia Mcgrath [facility] - BLOOD CELLS 19:36:37 [facility] POCT-GLUCOSE METER 2021-01-[address] [facility] - 18:47:00 [facility] CBC W/PLT COUNT & AUTO 2021-01-23 Richey McgrathKasia cain [facility] - DIFFERENTIAL 17:47:00 [facility] OXYGEN SATURATION, MEASURED 2021-01-[address] - 17:43:00 [facility] XR CHEST 1 VIEW PORTABLE / 2021-01-23 Richeybulmaro PickardKasia cain [facility] - BEDSIDE 15:54:00 [facility] BLOOD GAS, ARTERIAL 2021-01-23 Richeybulmaro Mcgrath, Kasia [facility] 15:[facility]:00 [facility] CBC W/PLT COUNT & AUTO 2021-01-23 [facility] McgrathKasia [facility] - DIFFERENTIAL 15:48:00 [facility] COMPREHENSIVE METABOLIC 2021-01-[address] [facility] - PANEL 15:48:00 [facility] MAGNESIUM 2021-01-[address] [facility] 15:48:00 [facility] PHOSPHORUS 2021-01-[address] [facility] - 15:48:00 [facility] LACTIC ACID, ARTERIAL 2021-01-23 [facility] McgrathKasia [facility]00 [facility] BLOOD GAS, ARTERIAL 2021-01-[address] [facility] - 15:48:00 [facility] PROTHROMBIN TIME/INR 2021-01-[address] [facility] - 15:48:00 [facility] APTT 2021-01-[address] [facility] - 15:48:00 [facility] FIBRINOGEN 2021-01-[address] [facility] - 15:48:00 [facility] SODIUM NA-STAT LAB 2021-01-[address] [facility] - 15:48:00 [facility] POTASSIUM-STAT LAB 2021-01-23 [facility] McgrathKasia [facility] - 15:48:00 [facility] GLUCOSE-STAT LAB 2021-01-[address] [facility] - 15:48:00 [facility] HGB/HCT (H&H) - STAT LAB 2021-01-[address] [facility]00 [facility] TRANSFUSE PLASMA 2021-01-23 Royalnanci, Alyce [facility] - 14:22:50 [facility] TRANSFUSE LEUKO-REDUCED 2021-01-[address] [facility] - PLATELETS 14:17:35 [facility] TRANSFUSE PLASMA 2021-01-23 Royalnanci, [facility]ce [facility] - 14:16:35 [facility] BLOOD GAS, ARTERIAL 2021-01-23 Prasanna, [facility]lyce [facility] - 13:33:39 [facility] CALCIUM, IONIZED 2021-01-23 Royalnanci, Alyce [facility] - 13:33:39 [facility] APTT 2021-01-23 Prasanna, Alyce [facility] - 13:33:39 [facility] PROTHROMBIN TIME/INR 2021-01-[address] [facility] - 13:33:39 [facility] FIBRINOGEN 2021-01-23 Royalnanci, [facility]ce [facility] - 13:33:39 [facility] PLATELET COUNT 2021-01-23 Prasanna, [facility]lyce [facility] - 13:33:39 [facility] SODIUM NA-STAT LAB 2021-01-[address] [facility] - 13:33:39 [facility] POTASSIUM-STAT LAB 2021-01-23 Royalnanci[facility] - 13:33:39 [facility] GLUCOSE-STAT LAB 2021-01-23 Royalnanci, [facility]ce [facility] - 13:33:39 [facility] HGB/HCT (H&H) - STAT LAB 2021-01-23 [facility] - 13:33:39 [facility] TRANSFUSE PLASMA 2021-01-23 Chapo Kennedy [facility] - 13:18:07 [facility] TRANSFUSE LEUKO-REDUCED 2021-01-[address] [facility] - [facility] 13:14:42 [facility] EXPLORATION,MEDIASTINAL 2021-01-[address] [facility] - 12:39:[address] [facility] TRANSFUSE LEUKO-REDUCED 2021-01-[address] [facility] - PLATELETS 11:04:16 [facility] POCT-GLUCOSE METER 2021-01-[address] [facility] - 09:50:00 [facility] TRANSFUSE PLASMA 2021-01-[address] [facility] - 09:36:12 [facility] PHOSPHORUS 2021-01-23 Beram, Jessesabinoremy [facility] - 09:32:00 [facility] CBC (HEMOGRAM ONLY) 2021-01-23 Beram, Luz [facility] - 09:32:00 [facility] MAGNESIUM 2021-01-23 Beram, Luz [facility] - 09:32:00 [facility] LACTIC ACID, ARTERIAL 2021-01-[address] [facility] - 04:04:00 [facility] XR CHEST 1 VIEW PORTABLE / 2021-01-23 Leonidas [facility]campo [facility] B[facility] 03:53:00 [facility] BLOOD GAS, ARTERIAL 2021-01-23 Zhaoam, [facility] - 03:49:00 [facility] OXYGEN SATURATION, MEASURED 2021-01-[address] [facility] - 03:49:00 [facility] APTT 2021-01-23 Bob, Luz [facility] - 03:48:00 [facility] CBC W/PLT COUNT & AUTO 2021-01-[address] [facility] - DIFFERENTIAL 03:48:00 [facility] PROTHROMBIN TIME/INR 2021-01-[address] [facility] - 03:48:00 [facility] MAGNESIUM 2021-01-[address] [facility] - 03:48:00 [facility] PHOSPHORUS 2021-01-[address] [facility] - 03:48:00 [facility] CALCIUM, IONIZED 2021-01-23 Zhaoam, Luz [facility] - 03:48:00 [facility] BASIC METABOLIC PANEL (7) 2021-01-23 [facility] - 03:48:00 [facility] (CELLAVISION MANUAL DIFF) 2021-01-23 [facility] - 03:48:00 [facility] TRANSFUSE LEUKO-REDUCED RED 2021-01-[address] [facility] - BLOOD CELLS 01:18:21 [facility] LACTIC ACID, ARTERIAL 2021-01-[address] [facility] - 00:14:00 [facility] MAGNESIUM 2021-01-23 Beram, Jessesabinoremy [facility] - 00:14:00 [facility] CALCIUM, IONIZED 2021-01-23 Beram, Jihad [facility] - 00:14:00 [facility] BLOOD GAS, ARTERIAL 2021-01-23 Beram, Jisabinod [facility] - 00:14:00 [facility] BASIC METABOLIC PANEL (7) 2021-01-23 [facility] - 00:14:00 [facility] TRANSFUSE LEUKO-REDUCED RED 2021-01-[address] [facility] - BLOOD CELLS 21:28:48 [facility] BLOOD GAS, ARTERIAL 2021-01-22 Zhao, Luz [facility] - 20:16:00 [facility] CBC (HEMOGRAM ONLY) 2021-01-[address] [facility] - 20:15:00 [facility] LACTIC ACID, ARTERIAL 2021-01-22 [facility] - 20:14:00 [facility] OXYGEN SATURATION, MEASURED 2021-01-22 Elin Vasquez [facility] - 20:14:00 [facility] SODIUM NA-STAT LAB 2021-01-[address] [facility] - 20:14:00 [facility] POTASSIUM-STAT LAB 2021-01-[address] [facility] - 20:14:00 [facility] GLUCOSE-STAT LAB 2021-01-[address] [facility] - 20:14:00 [facility] HGB/HCT (H&H) - STAT LAB 2021-01-22 [facility] - 20:14:00 [facility] PHOSPHORUS 2021-01-[address] [facility] - 20:14:00 [facility] PROTHROMBIN TIME/INR 2021-01-22 Ramos, Jes [facility] - 20:14:00 [facility] APTT 2021-01-[address] [facility] - 20:14:00 [facility] FIBRINOGEN 2021-01-22 Ramos, Jes [facility] - 20:14:00 [facility] TRANSFUSE LEUKO-REDUCED RED 2021-01-22 [facility] - BLOOD CELLS 19:33:22 [facility] CT CHEST WITH IV CONTRAST 2021-01-22 [facility] - 19:16:00 [facility] CT ABDOMEN/PELVIS WITH IV 2021-01-22 Elin Vasquez [facility] - CONTRAST 19:16:00 [facility] BLOOD GAS, ARTERIAL 2021-01-22 Elin Vasquez [facility] - 18:20:00 [facility] XR CHEST 1 VIEW PORTABLE / 2021-01-22 Elin Vasquez [facility] - BEDSIDE 17:57:00 [facility] POCT-GLUCOSE METER 2021-01-[address] [facility] - 16:31:00 [facility] PREPARE PLASMA 2021-01-22 Elin Vasquez [facility] - 14:56:00 [facility] BLOOD GAS, ARTERIAL 2021-01-22 Elin Vasquez [facility] - 14:41:00 [facility] POCT-GLUCOSE METER 2021-01-22 [facility] - 14:21:00 [facility] OXYGEN SATURATION, MEASURED 2021-01-22 Elin Vasquez [facility] - 13:58:00 [facility] POCT-GLUCOSE METER 2021-01-[address] [facility] - 13:57:00 [facility] SODIUM NA-STAT LAB 2021-01-22 [facility] - 13:56:00 [facility] POTASSIUM-STAT LAB 2021-01-22 Elin Vasquez [facility] - 13:56:00 [facility] GLUCOSE-STAT LAB 2021-01-22 Elin Vasquez [facility] - 13:56:00 [facility] HGB/HCT (H&H) - STAT LAB 2021-01-[address] [facility] - 13:56:00 [facility] CALCIUM, IONIZED 2021-01-22 Pedro, [facility]in [facility] - 13:56:00 [facility] CBC W/PLT COUNT & AUTO 2021-01-22 Elin Vasquez [facility] - DIFFERENTIAL 13:56:00 [facility] BLOOD GAS, ARTERIAL 2021-01-22 Pedro, [facility] - 13:56:00 [facility] (CELLAVISION MANUAL DIFF) 2021-01-22 [facility] - 13:56:00 [facility] LACTIC ACID, ARTERIAL 2021-01-[address] [facility] - 13:55:00 [facility] BASIC METABOLIC PANEL (7) 2021-01-22 [facility] - 13:55:00 [facility] MAGNESIUM 2021-01-[address] [facility] - 13:55:00 [facility] PHOSPHORUS 2021-01-[address] [facility] - 13:55:00 [facility] PROTHROMBIN TIME/INR 2021-01-[address] [facility] - 13:54:00 [facility] APTT 2021-01-22 [facility]quezloni [facility] - 13:54:00 [facility] FIBRINOGEN 2021-01-22 [facility]as[facility]inder [facility]quezloni [facility] - 13:54:00 [facility] POCT-GLUCOSE METER 2021-01-22 Ca Nolan [facility] - 13:23:00 [facility] BLOOD GAS, ARTERIAL 2021-01-[address] [facility] - 12:04:00 [facility] POCT-GLUCOSE METER 2021-01-22 Ca Nolan [facility] - 11:45:00 [facility] TRANSFUSE LEUKO-REDUCED RED 2021-01-22 Elin Vasquez [facility] - BLOOD CELLS 11:30:51 [facility] POCT-GLUCOSE METER 2021-01-22 Ca Nolan [facility] - 11:19:00 [facility] POCT-GLUCOSE METER 2021-01-22 [facility], Ca DominguezJennifer [facility] - 11:06:00 [facility] POCT-GLUCOSE METER 2021-01-22 [facility], Ca Irizarry [facility] - 10:55:00 [facility] POCT-GLUCOSE METER 2021-01-22 [facility], Ca AngelicaJennifer [facility] - 10:48:00 [facility] 2D ECHO W/ DOPPLER 2021-01-22 Jes Ramos [facility] - (CW/PW/COLOR) 10:39:48 [facility] LACTIC ACID, ARTERIAL 2021-01-22 Elin Vasquez [facility] - 10:36:00 [facility] OXYGEN SATURATION, MEASURED 2021-01-22 Elin Vasquez [facility] - 10:36:00 [facility] SODIUM NA-STAT LAB 2021-01-22 Elin Vasquez [facility] - 10:36:00 [facility] POTASSIUM-STAT LAB 2021-01-22 Elin Vasquez [facility] - 10:36:00 [facility] GLUCOSE-STAT LAB 2021-01-[address] [facility] - 10:36:00 [facility] HGB/HCT (H&H) - STAT LAB 2021-01-22 Elin Vasquez [facility] - 10:36:00 [facility] TRANSFUSE LEUKO-REDUCED RED 2021-01-22 Jes Ramos [facility] - BLOOD CELLS 09:58:57 [facility] CONTINUOUS VENOVENOUS 2021-01-22 [facility], Luz [facility] - HEMODIALYSIS 09:18:10 [facility] APTT 2021-01-22 [facility], Luz [facility] - 09:13:00 [facility] XR CHEST 1 VIEW PORTABLE / 2021-01-22 Elin Vasquez [facility] - BEDSIDE 08:57:00 [facility] LACTIC ACID, ARTERIAL 2021-01-22 Elin Vasquez [facility] - 08:09:00 [facility] OXYGEN SATURATION, MEASURED 2021-01-22 Elin Vasquez [facility] - 08:09:00 [facility] SODIUM NA-STAT LAB 2021-01-[address] [facility] - 08:09:00 [facility] POTASSIUM-STAT LAB 2021-01-22 Pedro, [facility] - 08:09:00 [facility] GLUCOSE-STAT LAB 2021-01-22 ePdro, [facility]in [facility] - 08:09:00 [facility] HGB/HCT (H&H) - STAT LAB 2021-01-[address] [facility] - 08:09:00 [facility] BLOOD GAS, ARTERIAL 2021-01-22 Pedro, [facility] - 08:09:00 [facility] APTT 2021-01-[address] [facility] - 07:42:00 [facility] XR CHEST 1 VIEW PORTABLE / 2021-01-[address] [facility] - BEDSIDE 07:08:00 [facility] HEMOGLOBIN AND HEMATOCRIT 2021-01-22 Jes [facility] - 06:37:00 [facility] BASIC METABOLIC PANEL (7) 2021-01-22 Jse Ramos [facility] - 06:35:00 [facility] CALCIUM, IONIZED 2021-01-[address] [facility] - 06:35:00 [facility] PROTHROMBIN TIME/INR 2021-01-[address] [facility] [facility] - 06:35:00 [facility] APTT 2021-01-[address] [facility] - 06:35:00 [facility] FIBRINOGEN 2021-01-[address] [facility] - 06:35:00 [facility] B-TYPE NATRIURETIC FACTOR 2021-01-22 Jes [facility] - (BNP) 06:35:00 [facility] HEPATIC FUNCTION PANEL 2021-01-[address] [facility] - 06:35:00 [facility] MAGNESIUM 2021-01-[address] [facility] - 06:35:00 [facility] [place] PHOSPHORUS 2021-01-[address] [facility] - 06:35:00 [facility] LACTIC ACID, ARTERIAL 2021-01-[address] [facility] [facility] - 06:31:00 [facility] BLOOD GAS, ARTERIAL 2021-01-[address] [facility] - 06:31:00 [facility] OXYGEN SATURATION, MEASURED 2021-01-[address] [facility] - 06:30:00 [facility] TYPE AND SCREEN, AUTOMATED 2021-01-[address] [facility] - 04:55:00 [facility] BLOOD GAS, ARTERIAL 2021-01-22 Zhaoam, Luz [facility] - 02:28:00 [facility] CBC W/PLT COUNT & AUTO 2021-01-[address] [facility] - DIFFERENTIAL 02:28:00 [facility] PROTHROMBIN TIME/INR 2021-01-[address] [facility] - 02:28:00 [facility] MAGNESIUM 2021-01-[address] [facility] - 02:28:00 [facility] PHOSPHORUS 2021-01-[address] [facility] - 02:28:00 [facility] CALCIUM, IONIZED 2021-01-22 Bob, Luz [facility] - 02:28:00 [facility] LACTIC ACID, ARTERIAL 2021-01-[address] [facility] - 02:28:00 [facility] BASIC METABOLIC PANEL (7) 2021-01-22 Nanette [facility]azael [facility] - 02:28:00 [facility] OXYGEN SATURATION, MEASURED 2021-01-[address] [facility] - 02:28:00 [facility] XR CHEST 1 VIEW PORTABLE / 2021-01-22 Leonidas [facility]campo [facility] 01:25:00 [facility] APTT 2021-01-[address] [facility] - 01:11:00 [facility] PREPARE LEUKO-REDUCED RBC 2021-01-21 [facility] - 23:54:00 [facility] HEMOGLOBIN AND HEMATOCRIT 2021-01-21 Jes [facility] - 22:41:00 [facility] APTT 2021-01-[address] [facility] - 22:41:00 [facility] ECG 12-LEAD 2021-01-21 Unknown, Hl7 Doctor [facility] - 22:11:18 [facility] POCT-GLUCOSE METER 2021-01-21 An [address] [facility] - 21:40:00 [facility] BASIC METABOLIC PANEL (7) 2021-01-21 Omi, Omar [facility] - 21:32:00 [facility] PHOSPHORUS 2021-01-21 Omi, Omar [facility] - 21:32:00 [facility] MAGNESIUM 2021-01-21 Omi, Omar [facility] - 21:32:00 [facility] BLOOD GAS, ARTERIAL 2021-01-[address] [facility] - 18:59:00 [facility] POCT-GLUCOSE METER 2021-01-[address] [facility] - 18:23:00 [facility] PT/APTT 2021-01-[address] [facility] - 17:17:00 [facility] POCT-GLUCOSE METER 2021-01-[address] [facility] - 12:07:00 [facility] BLOOD GAS, ARTERIAL 2021-01-[address] [facility] - 11:50:00 [facility] PT/APTT 2021-01-[address] [facility] - 11:49:00 [facility] MAGNESIUM 2021-01-[address] [facility] - 09:06:00 [facility] PHOSPHORUS 2021-01-[address] [facility] - 09:06:00 [facility] POTASSIUM 2021-01-[address] [facility] - 09:06:00 [facility] POCT-GLUCOSE METER 2021-01-21 Ca Nolan [address] [facility] - 08:39:00 [facility] PH, ARTERIAL 2021-01-[address] [facility] - 08:18:00 [facility] XR CHEST 1 VIEW PORTABLE / 2021-01-21 Leonidas [facility]campo [facility] 03:14:00 [facility] BLOOD GAS, ARTERIAL 2021-01-[address] [facility] - 03:10:00 [facility] CALCIUM, IONIZED 2021-01-[address] [facility] - 03:10:00 [facility] CBC W/PLT COUNT & AUTO 2021-01-[address] [facility] - DIFFERENTIAL 03:09:00 [facility] MAGNESIUM 2021-01-[address] [facility] - 03:09:00 [facility] APTT 2021-01-[address] [facility] - 03:09:00 [facility] HEPATIC FUNCTION PANEL 2021-01-[address] [facility] - 03:09:00 [facility] PROTHROMBIN TIME/INR 2021-01-[address] [facility] - 03:09:00 [facility] BASIC METABOLIC PANEL (7) 2021-01-[address] [facility] - 03:09:00 [facility] PREPARE LEUKO-REDUCED RBC 2021-01-[address] [facility] - 23:54:00 [facility] POCT-GLUCOSE METER 2021-01-[address] [facility] - 23:46:00 [facility] POTASSIUM 2021-01-[address] [facility] - 21:38:00 [facility] MAGNESIUM 2021-01-[address] [facility] - 21:38:00 [facility] PH, ARTERIAL 2021-01-20 Jarod, Jingyin [facility] - 21:38:00 [facility] PHOSPHORUS 2021-01-[address] [facility] - 21:38:00 [facility] POTASSIUM 2021-01-[address] [facility] - 18:19:00 [facility] POCT-GLUCOSE METER 2021-01-20 Ca Nolan [address] [facility] - 18:08:00 [facility] IR TUNNELED CATHETER 2021-01-[address] [facility] - INSERTION 17:08:00 [facility] TRANSFUSE LEUKO-REDUCED RED 2021-01-[address] [facility] - BLOOD CELLS 13:47:22 [facility] POTASSIUM 2021-01-[address] [facility] - 13:16:00 [facility] POCT-GLUCOSE METER 2021-01-[address] [facility] - 11:45:00 [facility] APTT 2021-01-20 Bertoro[facility] Joyceremy [facility] - 09:08:00 [facility] MAGNESIUM 2021-01-20 Jarod, Sadi [facility] - 09:07:00 [facility] PH, ARTERIAL 2021-01-20 Jarod, Sadi [facility] - 09:07:00 [facility] PHOSPHORUS 2021-01-20 Jarod, Sadi [facility] - 09:07:00 [facility] BLOOD GAS, ARTERIAL 2021-01-20 Bob, Luz [facility] - 03:49:00 [facility] CBC W/PLT COUNT & AUTO 2021-01-[address] [facility] - DIFFERENTIAL 03:48:00 [facility] MAGNESIUM 2021-01-[address] [facility] - 03:48:00 [facility] CALCIUM, IONIZED 2021-01-[address] [facility] - 03:48:00 [facility] PROTHROMBIN TIME/INR 2021-01-[address] [facility] - 03:48:00 [facility] BASIC METABOLIC PANEL (7) 2021-01-20 Jarod, Sadi [facility] - 03:48:00 [facility] HEPATIC FUNCTION PANEL 2021-01-[address] [facility] - 03:48:00 [facility] APTT 2021-01-20 Zhaotoro, [facility]z [facility] - 02:04:00 [facility] XR CHEST 1 VIEW PORTABLE / 2021-01-20 Leonidas [facility]campo [facility] - BED[facility] 01:18:00 [facility] POTASSIUM 2021-01-[address] [facility] - 00:38:00 [facility] POCT-GLUCOSE METER 2021-01-[address] [facility] - 00:20:00 [facility] HEMOGLOBIN AND HEMATOCRIT 2021-01-20 Jes Ramos [facility] - 00:19:00 [facility] TRANSFUSE LEUKO-REDUCED RED 2021-01-[address] [facility] - BLOOD CELLS 22:29:21 [facility] PH, ARTERIAL 2021-01-[address] [facility] - 20:23:00 [facility] POTASSIUM 2021-01-[address] [facility] - 20:19:00 [facility] MAGNESIUM 2021-01-[address] [facility] - 20:19:00 [facility] PHOSPHORUS 2021-01-[address] [facility] - 20:19:00 [facility] Center APTT 2021-01-[address] [facility] - 20:19:00 [facility] POTASSIUM 2021-01-[address] [facility] - 17:12:00 [facility] Center VANCOMYCIN LEVEL, TROUGH 2021-01-[address] [facility] - 17:12:00 [facility] CBC W/PLT COUNT & AUTO 2021-01-[address] [facility] [facility] - DIFFERENTIAL 17:12:00 [facility] POCT-GLUCOSE METER 2021-01-[address] [facility] - 11:39:00 [facility] POTASSIUM 2021-01-[address] [facility] - 11:24:00 [facility] PT/APTT 2021-01-[address] [facility] - 11:24:00 [facility] PHOSPHORUS 2021-01-[address] [facility] - 08:49:00 [facility] BLOOD GAS, ARTERIAL 2021-01-[address] [facility] - 08:49:00 [facility] POCT-GLUCOSE METER 2021-01-[address] [facility] - 06:23:00 [facility] HEMOGLOBIN AND HEMATOCRIT 2021-01-[address] [facility] - 05:41:00 [facility] CBC W/PLT COUNT & AUTO 2021-01-[address] [facility] - DIFFERENTIAL 05:41:00 [facility] BLOOD GAS, ARTERIAL 2021-01-19 Beram, Jihad [facility] - 03:47:00 [facility] CBC W/PLT COUNT & AUTO 2021-01-[address] [facility] - DIFFERENTIAL 03:46:00 [facility] MAGNESIUM 2021-01-[address] [facility] - 03:46:00 [facility] APTT 2021-01-[address] [facility] - 03:46:00 [facility] COMPREHENSIVE METABOLIC 2021-01-[address] [facility] - PANEL 03:46:00 [facility] CALCIUM, IONIZED 2021-01-[address] [facility] - 03:46:00 [facility] HEPATIC FUNCTION PANEL 2021-01-[address] [facility] - 03:46:00 [facility] PROTHROMBIN TIME/INR 2021-01-[address] [facility] - 03:46:00 [facility] (CELLAVISION MANUAL DIFF) 2021-01-[address] [facility] - 03:46:00 [facility] XR CHEST 1 VIEW PORTABLE / 2021-01-19 [facility] - [facility] 01:50:00 [facility] XR ABDOMEN / KUB 1 VIEW 2021-01-[address] [facility] - 01:50:00 [facility] POCT-GLUCOSE METER 2021-01-[address] [facility] - 01:38:00 [facility] POCT-GLUCOSE METER 2021-01-19 [facility] - 00:22:00 [facility] PREPARE PLASMA 2021-01-[address] [facility] - 23:55:00 [facility] PREPARE LEUKO-REDUCED RBC 2021-01-18 [facility] - 23:55:00 [facility] POTASSIUM 2021-01-[address] [facility] - 20:05:00 [facility] MAGNESIUM 2021-01-[address] [facility] - 20:05:00 [facility] PH, ARTERIAL 2021-01-[address] [facility] - 20:05:00 [facility] PHOSPHORUS 2021-01-[address] [facility] - 20:05:00 [facility] Center HEMOGLOBIN AND HEMATOCRIT 2021-01-18 [facility] - 20:05:00 [facility] POCT-GLUCOSE METER 2021-01-18 Kendrickkluis Ca T. [facility] - 17:48:00 [facility] POTASSIUM 2021-01-[address] [facility] - 15:40:00 [facility] POTASSIUM 2021-01-[address] [facility] - 12:28:00 [facility] POCT-GLUCOSE METER 2021-01-18 [place], Ca T. [facility] - 12:28:00 [facility] XR CHEST 1 VIEW PORTABLE / 2021-01-18 Estefany Mcwilliams [facility] - BEDSIDE 08:24:00 [facility] POTASSIUM 2021-01-[address] [facility] - 08:09:00 [facility] MAGNESIUM 2021-01-[address] [facility] - 08:09:00 [facility] PHOSPHORUS 2021-01-[address] [facility] - 08:09:00 [facility] HEMOGLOBIN AND HEMATOCRIT 2021-01-18 Jes [facility] - 04:31:00 [facility] BLOOD GAS, ARTERIAL 2021-01-[address] [facility] - 03:20:00 [facility] SARS-COV2/RT-PCR (HS & REF 2021-01-[address] [facility] - LABS) 03:16:00 [facility] CBC W/PLT COUNT & AUTO 2021-01-[address] [facility] - DIFFERENTIAL 03:13:00 [facility] MAGNESIUM 2021-01-[address] [facility] - 03:13:00 [facility] APTT 2021-01-[address] [facility] - 03:13:00 [facility] COMPREHENSIVE METABOLIC 2021-01-[address] [facility] - PANEL 03:13:00 [facility] PROTHROMBIN TIME/INR 2021-01-[address] [facility] - 03:13:00 [facility] Center LACTIC ACID, ARTERIAL 2021-01-[address] [facility] - 03:13:00 [facility] POCT-GLUCOSE METER 2021-01-[address] [facility] - 01:05:00 [facility] XR CHEST 1 VIEW PORTABLE / 2021-01-18 Leonidas [facility]campo [facility] - BED[facility] 00:21:00 [facility] PREPARE LEUKO-REDUCED RBC 2021-01-17 Jes Ramos [facility] - 23:55:00 [facility] HEMOGLOBIN AND HEMATOCRIT 2021-01-17 Jes Ramos [facility] - 19:55:00 [facility] POTASSIUM 2021-01-[address] [facility] - 19:49:00 [facility] MAGNESIUM 2021-01-[address] [facility] - 19:49:00 [facility] PH, ARTERIAL 2021-01-17 Jarod, Sadi [facility] - 19:49:00 [facility] PHOSPHORUS 2021-01-[address] - 19:49:00 [facility] TRANSFUSE LEUKO-REDUCED RED 2021-01-[address] [facility] - BLOOD CELLS 19:14:33 [facility] POCT-GLUCOSE METER 2021-01-[address] [facility] - 18:19:00 [facility] PROTHROMBIN TIME/INR 2021-01-[address] [facility] - 14:41:00 [facility] APTT 2021-01-[address] [facility] - 14:41:00 [facility] FIBRINOGEN 2021-01-[address] [facility] - 14:41:00 [facility] PLATELET COUNT 2021-01-[address] [facility] - 14:41:00 [facility] HEMOGLOBIN AND HEMATOCRIT 2021-01-[address] [facility] - 14:06:00 [facility] POCT-GLUCOSE METER 2021-01-[address] [facility] - 12:31:00 [facility] XR ABDOMEN / KUB 1 VIEW 2021-01-[address] [facility] - 12:11:00 [facility] POTASSIUM 2021-01-17 Jarod, Sadi [facility] 11[facility]43:00 [facility] TRANSFUSE PLASMA 2021-01-[address] [facility] - 11:34:18 [facility] POTASSIUM 2021-01-17 Jarod, [facility] - 07:59:00 [facility] MAGNESIUM 2021-01-17 Jarod, Sadi [facility] - 07:59:00 [facility] PH, ARTERIAL 2021-01-17 Jarod, Edelin [facility] - 07:59:00 [facility] PHOSPHORUS 2021-01-17 [facility], [facility] - 07:59:00 [facility] HEMOGLOBIN AND HEMATOCRIT 2021-01-[address] [facility] - 07:59:00 [facility] LACTIC ACID, ARTERIAL 2021-01-[address] [facility] - 04:08:00 [facility] CBC W/PLT COUNT & AUTO 2021-01-[address] [facility] - DIFFERENTIAL 04:08:00 [facility] MAGNESIUM 2021-01-[address] [facility] - 04:08:00 [facility] APTT 2021-01-[address] [facility] - 04:08:00 [facility] COMPREHENSIVE METABOLIC 2021-01-[address] [facility] - PANEL 04:08:00 [facility] HEPATIC FUNCTION PANEL 2021-01-[address] [facility] - 04:08:00 [facility] BLOOD GAS, ARTERIAL 2021-01-[address] [facility] - 04:08:00 [facility] PROTHROMBIN TIME/INR 2021-01-[address] [facility] 04:08:00 [facility] TYPE AND SCREEN, AUTOMATED 2021-01-[address] [facility] - 04:08:00 [facility] (CELLAVISION MANUAL DIFF) 2021-01-[address] [facility] - 04:08:00 [facility] TRANSFUSE LEUKO-REDUCED RED 2021-01-[address] [facility] - BLOOD CELLS 03:55:34 [facility] POCT-GLUCOSE METER 2021-01-[address] [facility] - 03:32:00 [facility] Center XR CHEST 1 VIEW PORTABLE / 2021-01-17 Leon[facility]o [facility] 00:37:00 Medical Center POTASSIUM 2021-01-16 Jarod, Jinarias [facility] - 23:11:00 [facility] PROTHROMBIN TIME/INR 2021-01-16 Ramos, Jes [facility] - 23:11:00 Medical Center APTT 2021-01-16 Ramos, Jes [facility] - 23:11:00 [facility] FIBRINOGEN 2021-01-16 Ramos, Jes [facility] - 23:11:00 Medical Center POCT-GLUCOSE METER 2021-01-16 [place], Ca Irizarry [facility] - 22:09:00 [facility] TRANSFUSE LEUKO-REDUCED RED 2021-01-[address] [facility] - BLOOD CELLS 20:31:58 [facility] LACTIC ACID, ARTERIAL 2021-01-[address] [facility] [facility] - 20:29:00 Medical Center POTASSIUM 2021-01-16 Jarod, Jingyin [facility] - 20:29:00 [facility] Center MAGNESIUM 2021-01-16 Jarod, Jingyin [facility] - 20:29:00 Medical Center PH, ARTERIAL 2021-01-16 Jarod, Jingyin [facility] - 20:29:00 Medical Center PHOSPHORUS 2021-01-16 Jarod, Jingyin [facility] - 20:29:00 Medical Center PT/APTT 2021-01-[address] [facility] - 20:29:00 Medical Center HEMOGLOBIN AND HEMATOCRIT 2021-01-[address] [facility] - 20:29:00 Medical Center BLOOD CULTURE 2021-01-[address] [facility] - 18:23:00 [facility] BLOOD CULTURE 2021-01-[address] [facility] - 18:11:00 [facility] TRANSFUSE LEUKO-REDUCED RED 2021-01-[address] [facility] - BLOOD CELLS 18:01:26 [facility] BLOOD GAS, ARTERIAL 2021-01-16 Kenny, Ara Magdaleno [facility] - 17:03:00 [facility] LACTIC ACID, ARTERIAL 2021-01-16 Kenny, Ara Sharla [facility] - 17:02:00 [facility] SPUTUM CULTURE + GRAM STAIN 2021-01-16 Kenny, [facility] - 17:02:00 [facility] ID INSERT 2021-01-[address] [facility] - CATH,ART,PERCUT,SHORTTERM 16:45:00 [facility] XR CHEST 1 VIEW PORTABLE / 2021-01-[address] [facility] - [facility] 16:18:00 [facility] PREPARE PLASMA 2021-01-16 Kenny, Ara Magdaleno [facility] - 16:15:00 [facility] XR CHEST 1 VIEW PORTABLE / 2021-01-[address] [facility] - BEDSIDE 15:43:00 [facility] BLOOD GAS, ARTERIAL 2021-01-16 Kenny, Ara Magdaleno [facility] - 15:41:00 [facility] BLOOD GAS, ARTERIAL 2021-01-16 Kenny, Ara Magdaleno [facility] - 15:17:00 [facility] 2D ECHO W/ DOPPLER 2021-01-[address] [facility] - (CW/PW/COLOR) 15:12:45 [facility] CBC W/PLT COUNT & AUTO 2021-01-[address] [facility] - DIFFERENTIAL 15:08:00 [facility] COMPREHENSIVE METABOLIC 2021-01-16 Kenny, Ara Magdaleno [facility] - PANEL 15:08:00 [facility] MAGNESIUM 2021-01-16 Kenny, Ara Magdaleno [facility] - 15:08:00 [facility] PHOSPHORUS 2021-01-16 Kenny, Ara Magdaleno [facility] - 15:08:00 [facility] CALCIUM, IONIZED 2021-01-16 Kenny, [facility]eno [facility] - 15:08:00 [facility] LACTIC ACID, ARTERIAL 2021-01-16 Kenny, [facility] 15:08:00 [facility] PT/APTT 2021-01-16 Gillet, Ara Magdaleno [facility] - 15:08:00 Medical Center TYPE AND SCREEN, AUTOMATED 2021-01-16 Gillet, Ara Magdaleno [facility] - 15:08:00 [facility] (CELLAVISION MANUAL DIFF) 2021-01-16 Gillet, Ara Magdaleno [facility] - 15:08:00 Medical Center POCT-BLOOD GASES, ARTERIAL 2021-01-16 Tyrel, [facility] 14:32[facility]00 [facility] POCT-SODIUM 2021-01-16 Tyrel, Zakia [facility] - 14:32:00 Medical Center POCT-POTASSIUM 2021-01-16 Tyrel, Zakia [facility] - 14:32:00 Medical Center POCT-HEMOGLOBIN 2021-01-16 Tyrel, Zakia [facility] - 14:32:00 Medical Center POCT-HEMATOCRIT 2021-01-16 Tyrel, Zakia [facility] - 14:32:00 Medical Center POCT-GLUCOSE 2021-01-16 Tyrel, Zakia [facility] - 14:32:00 Medical Center POCT-GLUCOSE METER 2021-01-16 Tyrel, Zakia [facility] - 14:21:00 [facility] POCT-BLOOD GASES, VENOUS 2021-01-16 Tyrel, Zakia [facility] - 14:14:00 Medical Center POCT-SODIUM 2021-01-16 Tyrel, Zakia [facility] - 14:14:00 Medical Center POCT-POTASSIUM 2021-01-16 Tyrel, Zakia [facility] - 14:14:00 Medical Center POCT-HEMOGLOBIN 2021-01-16 Tryel, Zakia [facility] - 14:14:00 Medical Center POCT-HEMATOCRIT 2021-01-16 Tyrel, Zakia [facility] - 14:14:00 Medical Center POCT-GLUCOSE 2021-01-16 Tyrel, Zakia [facility] - 14:14:00 Medical Center ECG 12-LEAD 2021-01-16 Unknown, Hl7 Doctor [facility] - 09:23:17 Medical Center ECG 12-LEAD 2021-01-16 Unknown, Hl7 Doctor [facility] - 09:22:46 Medical Center APTT 2021-01-[address] [facility] - 07:04:00 [facility] APTT 2021-01-[address] [facility] - 04:47:00 [facility] PROTHROMBIN TIME/INR 2021-01-[address] 04:47:00 [facility] CBC W/PLT COUNT & AUTO 2021-01-[address] [facility] - DIFFERENTIAL 03:24:00 [facility] MAGNESIUM 2021-01-[address] [facility] - 03:24:00 [facility] BASIC METABOLIC PANEL (7) 2021-01-[address] [facility] - 03:24:00 [facility] PHOSPHORUS 2021-01-[address] [facility] - 03:24:00 [facility] (CELLAVISION MANUAL DIFF) 2021-01-[address] [facility] - 03:24:00 [facility] XR CHEST 1 VIEW PORTABLE / 2021-01-16 Leon[facility]o [facility] 00:28:00 [facility] POCT-GLUCOSE METER 2021-01-[address] [facility] - 00:04:00 [facility] LIPID PANEL 2021-01-[address] [facility] - 22:24:00 [facility] APTT 2021-01-[address] [facility] - 22:24:00 [facility] POCT-GLUCOSE METER 2021-01-[address] [facility] - 12:14:00 [facility] XR CHEST 1 VIEW PORTABLE / 2021-01-15 Leonidas [facility]campo [facility] 09:00:00 [facility] APTT 2021-01-[address] [facility] - 08:48:00 [facility] POCT-GLUCOSE METER 2021-01-[address] [facility] - 08:12:00 [facility] CBC W/PLT COUNT & AUTO 2021-01-[address] [facility] - DIFFERENTIAL 03:16:00 [facility] COMPREHENSIVE METABOLIC 2021-01-15 [facility] PANEL 03:16:00 [facility] MAGNESIUM 2021-01-[address] [facility] - 03:16:00 [facility] PROTHROMBIN TIME/INR 2021-01-[address] [facility] - 03:16:00 [facility] (CELLAVISION MANUAL DIFF) 2021-01-[address] [facility] - 03:16:00 [facility] POCT-GLUCOSE METER 2021-01-[address] [facility] - 21:14:00 [facility] PROTHROMBIN TIME/INR 2021-01-[address] [facility] - 13:01:00 [facility] HEMODIALYSIS INPATIENT 2021-01-14 [facility] - 12:00:15 [facility] ECG 12-LEAD 2021-01-14 Unknown, Hl7 Doctor [facility] - 11:17:11 [facility] HEPATITIS B SURFACE ANTIGEN 2021-01-[address] [facility] - 10:41:00 [facility] POCT-GLUCOSE METER 2021-01-[address] [facility] - 07:20:[address] [facility] POCT-GLUCOSE METER 2021-01-14 [facility] 03:[facility] [facility] CBC W/PLT COUNT & AUTO 2021-01-14 Taye [facility]atoro [facility] - DIFFERENTIAL 03:29:00 [facility] COMPREHENSIVE METABOLIC 2021-01-14 [facility] PANEL 03:29:00 [facility] MAGNESIUM 2021-01-[address] [facility] - 03:29:00 [facility] (CELLAVISION MANUAL DIFF) 2021-01-[address] [facility] - 03:29:00 [facility] XR CHEST 1 VIEW PORTABLE / 2021-01-14 [facility] 01:35:00 [facility] XR CHEST 1 VIEW PORTABLE / 2021-01-13 Chapo Kennedy [facility] 19:12:00 [facility] INSERT NON-TUNNEL CV CATH 2021-01-13 [facility] 18:52:29 [facility] POCT-GLUCOSE METER 2021-01-[address] [facility] - 17:25:[address] [facility] BASIC METABOLIC PANEL (7) 2021-01-[address] [facility] - 15:28:00 [facility] MAGNESIUM 2021-01-[address] [facility] - 15:28:00 [facility] BLOOD GAS, ARTERIAL 2021-01-[address] [facility] - 15:28:00 [facility] POTASSIUM 2021-01-[address] [facility] - 12:29:00 [facility] BLOOD GAS, ARTERIAL 2021-01-[address] [facility] - 11:59:00 [facility] POCT-GLUCOSE METER 2021-01-[address] [facility] - 11:47:[address] [facility] BLOOD GAS, ARTERIAL 2021-01-[address] [facility] - 09:15:[address] [facility] SODIUM NA-STAT LAB 2021-01-[address] [facility] - 09:15:[address] [facility] POTASSIUM-STAT LAB 2021-01-[address] [facility] - 09:15:[address] [facility] GLUCOSE-STAT LAB 2021-01-[address] [facility] - 09:15:[address] [facility] HGB/HCT (H&H) - STAT LAB 2021-01-[address] [facility] - 09:15:[address] [facility] POTASSIUM 2021-01-[address] [facility] - 09:14:00 [facility] MAGNESIUM 2021-01-13 [facility], Galen [facility] - 09:14:00 [facility] PHOSPHORUS 2021-01-[address] [facility] - 09:14:00 [facility] (CELLAVISION MANUAL DIFF) 2021-01-[address] [facility] - 03:51:00 [facility] CBC W/PLT COUNT & AUTO 2021-01-13 Taye Villatoro [facility] - DIFFERENTIAL 03:51:00 [facility] COMPREHENSIVE METABOLIC 2021-01-13 [facility] PANEL 03:51:00 [facility] Center MAGNESIUM 2021-01-[address] [facility] - 03:51:00 [facility] Center PHOSPHORUS 2021-01-[address] [facility] - 03:51:00 [facility] XR CHEST 1 VIEW PORTABLE / 2021-01-13 [facility] 00:14:00 [facility] PREPARE PLASMA 2021-01-[address] [facility] - 23:56:[address] [facility] PREPARE RBC 2021-01-[address] [facility] - 23:55:[address] [facility] PREPARE PLATELETS 2021-01-[address] [facility] - 23:55:[address] [facility] PH, ARTERIAL 2021-01-12 [place], Galen [facility] - 21:20:00 Medical Center POTASSIUM 2021-01-12 [place], Galen [facility] - 21:20:00 [facility] Center MAGNESIUM 2021-01-12 [place], Galen [facility] - 21:20:00 Medical Center PHOSPHORUS 2021-01-12 [place], Galen [facility] - 21:20:00 Medical Center BASIC METABOLIC PANEL (7) 2021-01-12 [place], Galen [facility] - 14:27:00 Medical Center PHOSPHORUS 2021-01-12 [place], Galen [facility] - 14:27:00 Medical Center MAGNESIUM 2021-01-12 [place], Galen [facility] - 14:27:00 Medical Center SPUTUM CULTURE + GRAM STAIN 2021-01-[address] [facility] - 12:19:00 [facility] BRONCHIAL CULTURE + GRAM 2021-01-[address] [facility] - STAIN 12:19:00 [facility] MAGNESIUM 2021-01-12 [place], Galen [facility] - 09:17:00 Medical Center PHOSPHORUS 2021-01-12 [place], Galen [facility] - 09:17:00 Medical Center BASIC METABOLIC PANEL (7) 2021-01-12 [place], Galen [facility] - 09:17:00 Medical Center POCT-GLUCOSE METER 2021-01-[address] [facility] - 06:29:[address] [facility] POCT-GLUCOSE METER 2021-01-[address] [facility] - 03:26:[address] [facility] CALCIUM, IONIZED 2021-01-12 , Nacho Wiseman [facility] - 03:15:00 [facility] LACTIC ACID, ARTERIAL 2021-01-12 Uk, Nacho Wiseman [facility] - 03:15:00 [facility] OXYGEN SATURATION, MEASURED 2021-01-12 Uk, Nacho Wiseman [facility] - 03:15:00 [facility] (CELLAVISION MANUAL DIFF) 2021-01-[address] [facility] - 03:07:00 [facility] PHOSPHORUS 2021-01-12 Wor[facility] - 03:07:00 [facility] MAGNESIUM 2021-01-12 Wor, Galen [facility] - 03:07:00 [facility] CBC W/PLT COUNT & AUTO 2021-01-[address] [facility] - DIFFERENTIAL 03:07:00 [facility] COMPREHENSIVE METABOLIC 2021-01-12 T[facility] PANEL 03:07:00 [facility] BLOOD GAS, ARTERIAL 2021-01-[address] [facility] - 03:07:00 [facility] XR CHEST 1 VIEW PORTABLE / 2021-01-12 Scotty [facility] 00:18:00 [facility] BLOOD GAS, ARTERIAL 2021-01-11 Uk, Nach[facility] Wiseman [facility] - 22:20:00 [facility] BASIC METABOLIC PANEL (7) 2021-01-11 Uk, [facility]neth [facility] - 22:20:00 [facility] LACTIC ACID, ARTERIAL 2021-01-11 Uk, Nacho Wiseman [facility] - 22:20:00 [facility] BLOOD GAS, ARTERIAL 2021-01-[address] [facility] - 20:48:00 [facility] OXYGEN SATURATION, MEASURED 2021-01-[address] [facility] - 20:46:00 [facility] XR CHEST 1 VIEW PORTABLE / 2021-01-11 , Ndu[facility] 19:44:00 [facility] BLOOD GAS, ARTERIAL 2021-01-11 [facility], Nach[facility] Wiseman [facility] - 19:36:00 Medical Center PROTHROMBIN TIME/INR 2021-01-11 [facility], Nacho Wiseman [facility] - 19:36:00 Medical Center APTT 2021-01-11 [facility], Nacho Wiseman [facility] - 19:36:00 Medical Center FIBRINOGEN 2021-01-11 [facility], Nacho Wiseman [facility] - 19:36:00 [facility] THROMBOELASTOGRAPH (TEG) 2021-01-11 [facility], Nacho Wiseman [facility] - 19:36:00 [facility] CALCIUM, IONIZED 2021-01-11 Wor, Galen [facility] - 19:35:00 [facility] BASIC METABOLIC PANEL (7) 2021-01-11 Mcwilliams, Ramires-Vu Mcwilliams [facility] - 19:35:00 [facility] MAGNESIUM 2021-01-11 Mcwilliams, Ramires-Vu Mcwilliams [facility] - 19:35:00 [facility] PHOSPHORUS 2021-01-11 Mcwilliams, Ramires-Vu Mcwilliams [facility] - 19:35:00 [facility] BLOOD GAS, ARTERIAL 2021-01-11 [facility], Nach[facility] Wiseman [facility] - 19:35:00 [facility] LACTIC ACID, ARTERIAL 2021-01-11 [facility], Nacho Wiseman [facility] - 19:35:00 [facility] Center CBC (HEMOGRAM ONLY) 2021-01-11 [facility], Nach[facility] Wiseman [facility] - 19:35:00 [facility] Center SODIUM NA-STAT LAB 2021-01-11 [facility], [facility] Wis[facility] - 19:35:00 [facility] POTASSIUM-STAT LAB 2021-01-11 [facility], Nach[facility] Wiseman [facility] - 19:35:00 [facility] GLUCOSE-STAT LAB 2021-01-11 [facility], Nach[facility] Wismean [facility] - 19:35:00 [facility] HGB/HCT (H&H) - STAT LAB 2021-01-11 [facility], Nacho Wiseman [facility] - 19:35:00 [facility] [place] TRANSFUSE PLASMA 2021-01-[address] [facility] - 18:01:22 [facility] BLOOD GAS, ARTERIAL 2021-01-[address] [facility] - 17:36:44 [facility] CALCIUM, IONIZED 2021-01-[address] [facility] - 17:36:44 [facility] SODIUM NA-STAT LAB 2021-01-[address] [facility] - 17:36:44 [facility] POTASSIUM-STAT LAB 2021-01-[address] [facility] - 17:36:44 [facility] GLUCOSE-STAT LAB 2021-01-[address] [facility] - 17:36:44 [facility] HGB/HCT (H&H) - STAT LAB 2021-01-[address] [facility] - 17:36:44 [facility] TRANSFUSE LEUKO-REDUCED RED 2021-01-11 Andrea Sharon Weller [facility] - BLOOD CELLS 17:35:09 [facility] TRANSFUSE LEUKO-REDUCED 2021-01-[address] [facility] - PLATELETS 17:34:22 [facility] TRANSFUSE LEUKO-REDUCED 2021-01-[address] [facility] - PLATELETS 17:33:58 [facility] POCT-ACT 2021-01-[address] [facility] - 17:28:00 [facility] BLOOD GAS, ARTERIAL 2021-01-[address] [facility] - 17:09:25 [facility] CALCIUM, IONIZED 2021-01-[address] [facility] - 17:09:25 [facility] PROTHROMBIN TIME/INR 2021-01-[address] [facility] - 17:09:25 [facility] APTT 2021-01-[address] [facility] - 17:09:25 [facility] FIBRINOGEN 2021-01-[address] [facility] - 17:09:25 [facility] PLATELET COUNT 2021-01-[address] [facility] - 17:09:25 [facility] SODIUM NA-STAT LAB 2021-01-[address] [facility] - 17:09:25 [facility] POTASSIUM-STAT LAB 2021-01-[address] [facility] - 17:09:25 [facility] GLUCOSE-STAT LAB 2021-01-[address] [facility] - 17:09:25 [facility] HGB/HCT (H&H) - STAT LAB 2021-01-[address] [facility] - 17:09:25 [facility] (CELLAVISION MANUAL DIFF) 2021-01-11 Estef[address] Mcwilliams [facility] - 17:09:00 [facility] CBC W/PLT COUNT & AUTO 2021-01-11 Estef[facility]illiams [facility] - DIFFERENTIAL 17:09:00 [facility] POCT-ACT 2021-01-[address] - 17:08:00 [facility] BLOOD GAS, ARTERIAL 2021-01-[address] [facility] - 16:42:49 [facility] CALCIUM, IONIZED 2021-01-[address] [facility] - 16:42:49 [facility] SODIUM NA-STAT LAB 2021-01-[address] [facility] - 16:42:49 [facility] POTASSIUM-STAT LAB 2021-01-[address] [facility] - 16:42:49 [facility] GLUCOSE-STAT LAB 2021-01-[address] [facility] - 16:42:49 [facility] HGB/HCT (H&H) - STAT LAB 2021-01-[address] [facility] - 16:42:49 [facility] FUNGUS CULTURE + SMEAR 2021-01-[address] [facility] - 16:15:[address] [facility] SURGICALLY OBTAINED CULTURE 2021-01-[address] [facility] - + GRAM STAIN 16:15:[address] [facility] POCT-ACT 2021-01-[address] [facility] - 16:01:00 [facility] BLOOD GAS, ARTERIAL 2021-01-[address] [facility] - 15:58:[address] [facility] SODIUM NA-STAT LAB 2021-01-[address] [facility] - 15:58:[address] [facility] POTASSIUM-STAT LAB 2021-01-[address] [facility] - 15:58:[address] [facility] GLUCOSE-STAT LAB 2021-01-[address] [facility] - 15:58:[address] [facility] HGB/HCT (H&H) - STAT LAB 2021-01-[address] [facility] - 15:58:[address] [facility] TISSUE EXAM 2021-01-[address] [facility] - 15:53:[address] [facility] POCT-ACT 2021-01-11 Benedicto Witt [facility] - 15:33:00 [facility] BLOOD GAS, ARTERIAL 2021-01-[address] [facility] - 15:30:[address] [facility] SODIUM NA-STAT LAB 2021-01-[address] [facility] - 15:30:[address] [facility] POTASSIUM-STAT LAB 2021-01-[address] [facility] - 15:30:[address] [facility] GLUCOSE-STAT LAB 2021-01-[address] [facility] - 15:30:[address] [facility] HGB/HCT (H&H) - STAT LAB 2021-01-[address] [facility] - 15:30:[address] [facility] BLOOD GAS, ARTERIAL 2021-01-[address] [facility] - 14:57:[address] [facility] SODIUM NA-STAT LAB 2021-01-[address] [facility] - 14:57:[address] [facility] POTASSIUM-STAT LAB 2021-01-[address] [facility] - 14:57:[address] [facility] GLUCOSE-STAT LAB 2021-01-[address] [facility] - 14:57:[address] [facility] HGB/HCT (H&H) - STAT LAB 2021-01-[address] [facility] - 14:57:[address] [facility] POCT-ACT 2021-01-[address] [facility] - 14:48:00 [facility] ANESTHESIA VANCE 2021-01-[address] [facility] - 14:31:03 [facility] POCT-ACT 2021-01-[address] [facility] - 14:28:00 [facility] BLOOD GAS, ARTERIAL 2021-01-[address] [facility] - 14:06:20 [facility] SODIUM NA-STAT LAB 2021-01-[address] [facility] - 14:06:20 [facility] POTASSIUM-STAT LAB 2021-01-[address] [facility] - 14:06:20 [facility] GLUCOSE-STAT LAB 2021-01-[address] [facility] - 14:06:20 [facility] HGB/HCT (H&H) - STAT LAB 2021-01-[address] [facility] - 14:06:20 [facility] REPLACEMENT,VALVE MITRAL 2021-01-[address] [facility] - 13:12:[address] [facility] VANCE,3D 2021-01-[address] [facility] - 13:12:[address] [facility] POCT-GLUCOSE METER 2021-01-[address] [facility] - 12:41:00 [facility] [facility] BLOOD GAS, ARTERIAL 2021-01-[address] [facility] 09:38:00 [facility] BASIC METABOLIC PANEL (7) 2021-01-11 [facility] [place] [facility] - 09:22:00 [facility] CALCIUM, IONIZED 2021-01-11 [facility] [place] [facility] - 09:22:00 [facility] Center PHOSPHORUS 2021-01-11 [facility] [place] [facility] - 09:22:00 [facility] MAGNESIUM 2021-01-11 [facility] [place] [facility] - 09:22:00 [facility] XR CHEST 1 VIEW PORTABLE / 2021-01-11 Benedicto Witt [facility] - BEDSIDE 09:19:00 [facility] POCT-GLUCOSE METER 2021-01-[address] [facility] - 06:47:00 [facility] COMPREHENSIVE METABOLIC 2021-01-11 [facility]o [facility] - PANEL 04:05:00 [facility] MAGNESIUM 2021-01-[address] [place] [facility] - 04:05:00 [facility] PHOSPHORUS 2021-01-[address] [facility] - 04:05:00 [facility] BLOOD GAS, ARTERIAL 2021-01-[address] [facility] - 04:05:00 [facility] (CELLAVISION MANUAL DIFF) 2021-01-[address] [facility] - 04:04:00 [facility] CBC W/PLT COUNT & AUTO 2021-01-[address] [facility] - DIFFERENTIAL 04:04:00 [facility] CALCIUM, IONIZED 2021-01-[address] [facility] [facility] - 04:04:00 [facility] POCT-GLUCOSE METER 2021-01-[address] [facility] - 00:08:00 [facility] SARS-COV2/RT-PCR (HS & REF 2021-01-[address] [facility] - LABS) 23:17:00 [facility] BASIC METABOLIC PANEL (7) 2021-01-10 [facility]:14[facility]00 [facility] CALCIUM, IONIZED 2021-01-10 [facility] [place] [facility] - 23:14:00 [facility] PHOSPHORUS 2021-01-10 [facility] [place] [facility] - 23:14:00 [facility] MAGNESIUM 2021-01-10 [facility] [place] [facility] - 23:14:00 [facility] ID INSERT 2021-01-[address] [facility] - CATH,ART,PERCUT,SHORTTERM 19:00:12 [facility] SPUTUM CULTURE + GRAM STAIN 2021-01-[address] [facility] - 17:15:00 [facility] BLOOD CULTURE 2021-01-[address] [facility] - 17:15:00 [facility] 2D ECHO W/ DOPPLER 2021-01-10 Taye Villatoro [facility] - (CW/PW/COLOR) 16:47:17 [facility] PROTHROMBIN TIME/INR 2021-01-[address] [facility] - 16:25:00 [facility] APTT 2021-01-10 Irving, Taye Kapadia [facility] - 16:25:00 [facility] Center FIBRINOGEN 2021-01-10 Irving, Taye Kapadia [facility] - 16:25:00 [facility] BLOOD GAS, VENOUS 2021-01-10 [place], Taye [facility]adia [facility] - 16:25:00 [facility] XR CHEST 1 VIEW PORTABLE / 2021-01-10 [place], [facility]ia [facility] 15:41:00 [facility] Center TYPE AND SCREEN, AUTOMATED 2021-01-10 [place], [facility]ia [facility] - 15:38:00 [facility] (CELLAVISION MANUAL DIFF) 2021-01-10 [place], [place] [facility] - 15:38:00 [facility] CBC W/PLT COUNT & AUTO 2021-01-10 [place], [place]Kang Soloriokes - DIFFERENTIAL 15:38:00 [facility] COMPREHENSIVE METABOLIC 2021-01-10 [place], [place] [facility] - PANEL 15:38:00 [facility] MAGNESIUM 2021-01-10 Irving, Taye Kapadia [facility] - 15:38:00 [facility] PHOSPHORUS 2021-01-10 Irving, Taye Kapadia [facility] - 15:38:00 [facility] LACTIC ACID, VENOUS 2021-01-10 Irving, Taye Kapadia [facility] St [facility]idi [facility] - 15:38:00 [facility] POCT-GLUCOSE METER 2021-01-10 Trey Galvez [facility] - 15:01:[address] [facility] ECG 12-LEAD 2021-01-10 Unknown, Hl[facility] Doctor [facility] - 14:08:05 [facility] EXTERNAL PROVIDER RECORDS 2019-08-03 Doctor Unassigned, [facility] 06:01:00 [facility] Plan of Care Planned Activity Planned Date Details Comments Source Future Scheduled 2024-01-[address] [facility] Test 00:00:00 (procedure) [code = [facility] [id number]] Future Scheduled 2024-01-[address] [facility] Test 00:00:00 (procedure) [code = [facility] [id number]] Future Scheduled 2024-01-[address] [facility] Test 00:00:00 (procedure) [code = [facility] [id number]] Future Scheduled 2021-02-[address] [facility] Test 00:00:00 (#1) [code = Medical Center INFLUENZA VACCINE (#1)] Future Scheduled 2021-02-[address] [facility] - Test 00:00:00 (#1) [code = Medical Center INFLUENZA VACCINE (#1)] Future Scheduled 2021-02-[address] [facility] - Test 00:00:00 (#1) [code = Medical Center INFLUENZA VACCINE (#1)] Future Scheduled 2020-06-[address] [facility] - Test 00:00:00 (12+) [code = Medical Center DEPRESSION SCREENING (12+)] Future Scheduled 2020-06-[address] [facility] - Test 00:00:00 (12+) [code = Medical Center DEPRESSION SCREENING (12+)] Future Scheduled 2020-06-[address] [facility] - Test 00:00:00 (12+) [code = Medical Center DEPRESSION SCREENING (12+)] Future Scheduled 1996 DTAP/TDAP/TD VACCINES [facility] 00:00:00 (1 - Tdap) [code = Medical C enter DTAP/TDAP/TD VACCINES (1 - Tdap)] Future Scheduled 1996 DTAP/TDAP/TD VACCINES [facility] 00:00:00 (1 - Tdap) [code = Medical C enter DTAP/TDAP/TD VACCINES (1 - Tdap)] Future Scheduled 1996 DTAP/TDAP/TD VACCINES [facility] 00:00:00 (1 - Tdap) [code = Medical C enter DTAP/TDAP/TD VACCINES (1 - Tdap)] Future Scheduled 1995 HEPATITIS C [facility]CRE[facility]ING [facility]00 [code = HEPATITIS C Medical Center SCREENING] Future Scheduled 1995 HEPATITIS C [facility]00 [code = HEPATITIS C Medical Center SCREENING] Future Scheduled 1995 HE[facility]ITIS C [facility]00 [code = HEPATITIS C Medical Center SCREENING] Future Scheduled 1989 COVID-19 VACCINE (1) [facility] Test 00:00:00 [code = COVID-[address] VACCINE (1)] Future Scheduled 1989 COVID-19 VACCINE (1) [facility] Test 00:00:00 [code = COVID-[address] VACCINE (1)] Future Scheduled 1989 COVID-19 VACCINE (1) [facility] Test 00:00:00 [code = COVID-[address] VACCINE (1)] Encounters Start End Encounter Admission Attending Care Care Encounter Source Date/Time Date/Time Type Type Clinicians Facility Department ID 2021-04-06 Outpatient [facility] [id number] Univers 23:36:40 [facility] 2021-04-06 Outpatient [facility] [id number] Univers 13:49:25 [facility] 2021-03-14 Outpatient [id number] Memoria 16:36:28 [id number] [place] [id number] 2021-01-09 [facility] [id number] 00:00:00 Encounter [facility] 2019-03-15 Inpatient [facility] PUL [id number] [facility] W 17:40:00 2021-04-12 2021-04-12 Outpatient DEDE [facility] [id number] [facility] 13:05:26 13:05:26 [facility] 2021-04-04 2021-04-04 [facility] [id number] [facility] 00:00:00 00:00:00 [facility] 2021-03-27 2021-03-27 [facility]patient [facility] [id number] [facility] 00:00:00 00:00:00 [facility] 2021-03-27 2021-03-27 Outpatient [facility] [id number] [facility] 00:00:00 00:00:00 [facility] 2021-01-10 2021-03-25 Inpatient DEDE ORTIZ [facility] Emergency [id number] [facility] 14:49:00 17:10:00 AHMED 2021-03-20 2021-03-20 Outpatient STAN [facility] [id number] [facility] 00:00:00 00:00:00 [facility] 2021-03-20 2021-03-20 Outpatient STAN, [facility] [id number] [facility] 00:00:00 00:00:00 [facility] 2021-03-10 2021-03-10 Outpatient STAN [facility] [id number] [facility] 00:00:00 00:00:00 [facility] 2021-03-01 2021-03-01 Outpatient STAN [facility] [id number] [facility] 00:00:00 00:00:00 [facility] 2021-02-15 2021-02-15 Outpatient STAN [facility] [id number] [facility] 00:00:00 00:00:00 [facility] 2021-02-15 2021-02-15 Outpatient STAN [facility] [id number] [facility] 00:00:00 00:00:00 [facility] 2021-01-31 2021-01-31 Outpatient STAN [facility] [id number] [facility] 00:00:00 00:00:00 [facility] 2021-01-23 2021-01-23 Outpatient [facility] [id number] [facility] 11:45:00 23:59:00 Ellie 2021-01-23 2021-01-23 Surgery Omar, [facility] [id number] [facility] 14:18:00 16:57:00 [facility] 2021-01-23 2021-01-23 Anesthesia Jaison Ariza [facility] [id number] 12:46:00 15:41:00 Event Alden Arias [facility] 2021-01-22 2021-01-22 Anesthesia Ekta, [facility] [id number] 06:27:40 06:27:40 Event Francheska [facility] 2021-01-21 2021-01-21 Travel [facility] [id number] [facility] 00:00:00 00:00:00 [facility] 2021-01-16 2021-01-16 Outpatient BCM BC [id number] [facility] 00:00:00 23:59:00 [facility] 2021-01-16 2021-01-16 Anesthesia Debra, [facility] [id number] 14:00:00 14:00:00 Event Arcadio Hodge [facility] 2021-01-11 2021-01-11 Anesthesia Sharon Mendez [facility] [id number] 13:02:00 19:30:00 Event Suzie Beth [facility] 2021-01-11 2021-01-11 Surgery Omar [facility] [id number] 13:43:00 16:58:00 Man [facility] 2021-01-10 2021-01-10 Outpatient BCM BCM [id number] [facility] 14:49:00 23:59:00 [facility] 2021-01-10 2021-01-10 Outpatient BCM BC [id number] [facility] 14:49:00 14:49:00 [facility] 2021-01-10 2021-01-10 Orders [facility] [id number] 00:00:00 00:00:00 Only [facility] 2020-12-15 2020-12-15 Outpatient [facility] [id number] Univers 13:30:00 13:30:00 WONDIFUL [id number] ity o f [facility] 2020-12-15 2020-12-15 Outpatient Tam [facility] [id number] Univers 13:30:00 13:30:00 WONDIFUL ity o f [facility] 2020-02-01 2020-02-01 [facility] [id number] 00:00:00 00:00:00 Agus Tenorio SPECIALTY [id number] [facility] 4.2.7.2.686 CENTER AT [id number] [address] 2020-02-01 2020-02-01 [facility]phone [facility] [id number] Univers 00:00:00 00:00:00 Agus R SPECIALTY [id number] it[place] [phone] Ut beth PEREZ [address] [place] [address] 2019-12-22 2019-12-22 Telephone Faculty, [facility] [id number] 00:00:00 00:00:00 Vascular Y HEALTH [id number] Surg CLINICS [id number] [facility] 2019-12-22 2019-12-22 Telephone Faculty, [facility] [id number] Univers 00:00:00 00:00:00 Vascular Y HEALTH [id number] ity of Surg CL[place]ICS [place] [phone] [facility] [address] 2019-11-19 2019-11-19 Telephone [facility], [facility] [id number] 00:00:00 00:00:00 Ted Y HEALTH [id number] CLINICS [id number] [id number] [facility] 2019-11-19 2019-11-19 Telephone [facility], [facility] 1.2.840.114 [id number] Univers 00:00:00 00:00:00 Ted Y HEALTH [id number] i ty of [place] [id number] [place] [address] [address] 2019-11-04 2019-11-04 Telephone [facility], [facility] 1.2.840.114 [id number] 00:00:00 00:00:00 Ted Y HEALTH [id number] CLINICS [id number] [id number] [facility] 2019-11-04 2019-11-04 Telephone Bowen, [facility] 1.2.840.114 [id number] Univers 00:00:00 00:00:00 Ted Y HEALTH [id number] i [place] [id number] [address] 2019-08-19 2019-09-01 Office NICOLE Bowen [id number] Univers 11:01:36 12:14:59 Visit Ted Dyson [facility] 350.1.13.10 i ty of CLINICS 4.2.7.2.686 [place] maurer [phone] [address] 2019-08-19 2019-08-19 Outpatient R [facility] [id number] Univers 10:15:00 10:15:00 TED ity of [facility] 2019-08-03 2019-08-03 Orders Doctor BRENT 1.2.840.114 [id number] Univers 00:00:00 00:00:00 Only Unassigned, ROXIE [id number] ity of [place] [facility] 4.2.7.2.686 Mark as [phone] [address] Results Test Description Test Time Test Comments Results Result Comments Source PROTHROMBIN TIME/INR 2021-03-25 06:33:53 Test Item Value Reference Range Interpretation Comme nts PROTIME (BEAKER) (test code 28.1 seconds 11.9-14.2 H = 759) INR (BEAKER) (test code = 2.67 See_Comment [ Automated message] The [employer]) system which ge nerated this result transmit ari reference range: <=5.90. The reference range was not u sed to interpret this result as normal/abnormal . RECOMMENDED COUMADIN/WARFARIN INR THERAPY RANGESSTANDARD DOSE: 2.0 - 3.0 Includes: PROPHYLAXIS forvenous thrombosis, systemic embolization; TREATMENT for venous thrombosis and/or pulmonary embolus.HIGH RISK: Target INR is 2.5-3.5 for patients with mechanical heart valves.SARS-COV2/RT-PCR ([facility]) 2021-03-25 03:01:02 Test Item Value Reference Range Interpretation Comments SARS-COV2/RT-PCR (test code = Negative Negative [id number]) Negative result for this test determines that SARS-CoV-2 RNA was not present in the specimen above the Limit of Detection (LOD). However, Negative results do not preclude SARS-CoV-2 infection and should not be used as the sole basis for treatment or patient management decisions. Negative results must be combined with clinical observations, patient history, and epidemiological information. A false negative result may occur if a specimen is improperly collected, transported, or handled. A false negative result should be considered if patient's recent exposures or clinical presentation indicate that COVID-19 (SARS-CoV-2) is likely and diagnostic tests for other causes of illness are negative. Re-testing should be considered in cases of suspected false negatives.The limit of detection for this assay is 100 copies/mL.This SARS-CoV-2 test is a real-time RT_PCR test intended for the qualitative detection of nucleic acid from SARS-CoV-2 in a nasopharyngeal swab specimen collected from individuals suspected of COVID-19 by their healthcare provider.This test has not been Food and Drug Administration (FDA) cleared or approved. This is a modified version of an approved Emergency Use Authorization (EUA) and is in the process of review by the FDA. Once authorized by the FDA, the issued EUA will be e ffective until the declaration that circumstances exist justifying the authorization of the emergency use of in vitro diagnostic tests for detection and/or diagnosis of COVID-19 is terminated under Section 564(b)(2) of the Act or the EUA is revoked under Section 564(g) of the Act.Testing was performedusing the Mcdonald SARS-CoV-2 assay.Fact Sheet for Healthcare Providers:https://www.molecular.mcdonald/jermaine/RT SARS-CoV-2 HCP Fact Sheet 51- 415580.pdfFact Sheet for Healthcare Patients:https://www.molecular.mcdonald/jermaine/RT SARS-CoV-2 Patient Fact Sheet EN 51-512925I2.pdfBASI METABOLIC [id number] 16:24:38 Test Item Value Reference Range Interpretation Comments SODIUM (BEAKER) 135 meq/L 136-145 L (test code = 381) POTASSIUM (BEAKER) 4.7 meq/L 3.5-5.1 Specimen slightly (test code = 379) hemolyzed CHLORIDE (BEAKER) 99 meq/L 98-107 (test code = 382) CO2 (BEAKER) (test 21 meq/L 22-29 L code = 355) BLOOD UREA NITROGEN 49 mg/dL 7-21 H (BEAKER) (test code = 354) CREATININE (BEAKER) 6.27 mg/dL 0.57-1.25 H Specimen slightly (test code = 358) hemolyzed GLUCOSE RANDOM 100 mg/dL 70-105 (BEAKER) (test code = 652) CALCIUM (BEAKER) 9.6 mg/dL 8.4-10.2 (test code = 697) EGFR (BEAKER) (test 12 mL/min/1.73 ESTIMA ARI GFR IS code = 1092) sq m NOT ACCURATE CREATININE CLEARANCE IN PREDICTING GLOMERULAR FILTRATION RATE . ESTIMATED GFR I S NOT APPLICABLE FOR DIALYSIS PATIEN TS. Stock Driver ID - [id number] (HEMOGRAM ONLY)2021-03-24 16:04:46 Test Item Value Reference Range Interpretation Comments WHITE BLOOD CELL COUNT (BEAKER) 7.2 K/ L 3.5-10.5 (test code = 775) RED BLOOD CELL COUNT (BEAKER) 2.93 M/ L 4.63-6.08 L (test code = 761) HEMOGLOBIN (BEAKER) (test code = 8.3 GM/DL 13.7-17.5 L 410) HEMATOCRIT (BEAKER) (test code = 27.1 % 40.1-51.0 L 411) MEAN CORPUSCULAR VOLUME (BEAKER) 92.5 fL 79.0-92.2 H (test code = 753) MEAN CORPUSCULAR HEMOGLOBIN 28.3 pg 25.7-32.2 (BEAKER) (test code = 751) MEAN CORPUSCULAR HEMOGLOBIN CONC 30.6 GM/DL 32.3-36.5 L (BEAKER) (test code = 752) RED CELL DISTRIBUTION WIDTH 14.5 % 11.6-14.4 H (BEAKER) (test code = 412) PLATELET COUNT (BEAKER) (test 247 K/CU MM 150-450 code = 756) MEAN PLATELET VOLUME (BEAKER) 8.9 fL 9.4-12.4 L (test code = 754) NUCLEATED RED BLOOD CELLS 0 /100 WBC 0-0 (BEAKER) (test code = 413) RAD, CHEST, 1 VIEW, NON [id number] 15:20:00Reason for exam:->chfShould this be performed at the bedside?->Yes [facility] CROW KAUR : 1975 Sex: MAddendum BeginsREPORT STATUS:A Addendum: No evidence of active tuberculosis. Signed: Re Cantueport Verified Date/Time: 03/24/2021 15:20:26 Reading Location: [address] Neuro Reading RoomAddendum EndsFINAL REPORT RAD, CHEST, 1 VIEW, NON DEPT INDICATION: chf COMPARISON: Prior day's exam FINDINGS: Portable frontal view of the chest. I MPRESSION: Support Lines: Dialysis catheter tip overlies the atriocaval junction Lungs and pleura:Bilateral airspace opacities concerning for multifocal pneumonia versus multifocal edema. No significant pneumothorax. Heart and mediastinum: Stable contours. Additional findings: None. Signed: Re Cantuort Verified Date/Time: 03/14/2021 07:27:07 Reading Location: [facility] Reading Room PROTHROMBIN TIME/[id number] 04:54:57 Test Item Value Reference Range Interpretation Comments PROTIME (BEAKER) 27.8 seconds 11.9-14.2 H (test code = 759) INR (BEAKER) (test 2.63 See_Comment [Automat ed message] code = 370) The system Umeng generated this result transmitted ref erence range: <=5.90. The reference range was not used to int erpret this result as normal/abnormal . RECOMMENDED COUMADIN/WARFARIN INR THERAPY RANGESSTANDARD DOSE: 2.0 - 3.0 Includes: PROPHYLAXIS forvenous thrombosis, systemic embolization; TREATMENT for venous thrombosis and/or pulmonary embolus.HIGH RISK: Target INR is 2.5-3.5 for patients with mechanical heart valves.PROTHROMBIN TIME/[id number] 05:42:02 Test Item Value Reference Range Interpretation Comments PROTIME (BEAKER) 25.9 seconds 11.9-14.2 H (test code = 759) INR (BEAKER) (test 2.40 See_Comment [Automat ed message] code = 370) The system Umeng generated this result transmitted ref erence range: <=5.90. The reference range was not used to int erpret this result as normal/abnormal . RECOMMENDED COUMADIN/WARFARIN INR THERAPY RANGESSTANDARD DOSE: 2.0 - 3.0 Includes: PROPHYLAXIS forvenous thrombosis, systemic embolization; TREATMENT for venous thrombosis and/or pulmonary embolus.HIGH RISK: Target INR is 2.5-3.5 for patients with mechanical heart valves.BASIC METABOLIC [id number] 07:39:53 Test Item Value Reference Range Interpretation Comments SODIUM (BEAKER) 134 meq/L 136-145 L (test code = 381) POTASSIUM (BEAKER) 4.6 meq/L 3.5-5.1 (test code = 379) CHLORIDE (BEAKER) 101 meq/L 98-107 (test code = 382) CO2 (BEAKER) (test 26 meq/L 22-29 code = 355) BLOOD UREA NITROGEN 37 mg/dL 7-21 H (BEAKER) (test code = 354) CREATININE (BEAKER) 6.36 mg/dL 0.57-1.25 H (test code = 358) GLUCOSE RANDOM 99 mg/dL 70-105 (BEAKER) (test code = 652) CALCIUM (BEAKER) 9.4 mg/dL 8.4-10.2 (test code = 697) EGFR (BEAKER) (test 12 mL/min/1.73 ESTIMA ARI GFR IS code = 1092) sq m NOT ACCURATE CREATININE CLEARANCE IN PREDICTING GLOMERULAR FILTRATION RATE . ESTIMATED GFR I S NOT APPLICABLE FOR DIALYSIS PATIEN TS. Stock Driver ID - PIAYA LPROTHROMBIN TIME/[id number] 06:23:41 Test Item Value Reference Range Interpretation Comments PROTIME (BEAKER) 26.2 seconds 11.9-14.2 H (test code = 759) INR (BEAKER) (test 2.43 See_Comment [Automat ed message] code = 370) The system Umeng generated this result transmitted ref erence range: <=5.90. The reference range was not used to int erpret this result as normal/abnormal . RECOMMENDED COUMADIN/WARFARIN INR THERAPY RANGESSTANDARD DOSE: 2.0 - 3.0 Includes: PROPHYLAXIS forvenous thrombosis, systemic embolization; TREATMENT for venous thrombosis and/or pulmonary embolus.HIGH RISK: Target INR is 2.5-3.5 for patients with mechanical heart valves.CBC W/PLT COUNT & AUTO DIFFERENTIAL 2021-03-22 06:03:13 Test Item Value Reference Range Interpretation Comments WHITE BLOOD CELL COUNT (BEAKER) 8.0 K/ L 3.5-10.5 (test code = 775) RED BLOOD CELL COUNT (BEAKER) 3.10 M/ L 4.63-6.08 L (test code = 761) HEMOGLOBIN (BEAKER) (test code = 8.9 GM/DL 13.7-17.5 L 410) HEMATOCRIT (BEAKER) (test code = 28.8 % 40.1-51.0 L 411) MEAN CORPUSCULAR VOLUME (BEAKER) 92.9 fL 79.0-92.2 H (test code = 753) MEAN CORPUSCULAR HEMOGLOBIN 28.7 pg 25.7-32.2 (BEAKER) (test code = 751) MEAN CORPUSCULAR HEMOGLOBIN CONC 30.9 GM/DL 32.3-36.5 L (BEAKER) (test code = 752) RED CELL DISTRIBUTION WIDTH 14.7 % 11.6-14.4 H (BEAKER) (test code = 412) PLATELET COUNT (BEAKER) (test 238 K/CU MM 150-450 code = 756) MEAN PLATELET VOLUME (BEAKER) 8.4 fL 9.4-12.4 L (test code = 754) NUCLEATED RED BLOOD CELLS 0 /100 WBC 0-0 (BEAKER) (test code = 413) NEUTROPHILS RELATIVE PERCENT 65 % (BEAKER) (test code = 429) LYMPHOCYTES RELATIVE PERCENT 18 % (BEAKER) (test code = 430) MONOCYTES RELATIVE PERCENT 11 % (BEAKER) (test code = 431) EOSINOPHILS RELATIVE PERCENT 5 % (BEAKER) (test code = 432) BASOPHILS RELATIVE PERCENT 1 % (BEAKER) (test code = 437) NEUTROPHILS ABSOLUTE COUNT 5.19 K/ L 1.78-5.38 (BEAKER) (test code = 670) LYMPHOCYTES ABSOLUTE COUNT 1.41 K/ L 1.32-3.57 (BEAKER) (test code = 414) MONOCYTES ABSOLUTE COUNT (BEAKER) 0.84 K/ L 0.30-0.82 H (test code = 415) EOSINOPHILS ABSOLUTE COUNT 0.40 K/ L 0.04-0.54 (BEAKER) (test code = 416) BASOPHILS ABSOLUTE COUNT (BEAKER) 0.08 K/ L 0.01-0.08 (test code = 417) IMMATURE GRANULOCYTES-RELATIVE 0 % 0-1 PERCENT (BEAKER) (test code = 2801) BASIC METABOLIC [id number] 07:28:56 Test Item Value Reference Range Interpretation Comments SODIUM (BEAKER) 137 meq/L 136-145 (test code = 381) POTASSIUM (BEAKER) 3.9 meq/L 3.5-5.1 (test code = 379) CHLORIDE (BEAKER) 103 meq/L 98-107 (test code = 382) CO2 (BEAKER) (test 23 meq/L 22-29 code = 355) BLOOD UREA NITROGEN 19 mg/dL 7-21 (BEAKER) (test code = 354) CREATININE (BEAKER) 4.33 mg/dL 0.57-1.25 H (test code = 358) GLUCOSE RANDOM 90 mg/dL 70-105 (BEAKER) (test code = 652) CALCIUM (BEAKER) 9.1 mg/dL 8.4-10.2 (test code = 697) EGFR (BEAKER) (test 18 mL/min/1.73 ESTIMA ARI GFR IS code = 1092) sq m NOT ACCURATE CREATININE CLEARANCE IN PREDICTING GLOMERULAR FILTRATION RATE . ESTIMATED GFR I S NOT APPLICABLE FOR DIALYSIS PATIEN TS. Stock Driver ID - [id number] 05:52:11 Test Item Value Reference Range Interpretation Comments PROTIME (BEAKER) 25.3 seconds 11.9-14.2 H (test code = 759) INR (BEAKER) (test 2.33 See_Comment [Automat ed message] code = 370) The system [employer] generated this result transmitted ref erence range: <=5.90. The reference range was not used to int erpret this result as normal/abnormal . RECOMMENDED COUMADIN/WARFARIN INR THERAPY RANGESSTANDARD DOSE: 2.0 - 3.0 Includes: PROPHYLAXIS forvenous thrombosis, systemic embolization; TREATMENT for venous thrombosis and/or pulmonary embolus.HIGH RISK: Target INR is 2.5-3.5 for patients with mechanical heart valves.CBC W/PLT COUNT & AUTO DIFFERENTIAL 2021-03-21 05:43:50 Test Item Value Reference Range Interpretation Comments WHITE BLOOD CELL COUNT (BEAKER) 5.8 K/ L 3.5-10.5 (test code = 775) RED BLOOD CELL COUNT (BEAKER) 3.18 M/ L 4.63-6.08 L (test code = 761) HEMOGLOBIN (BEAKER) (test code = 9.0 GM/DL 13.7-17.5 L 410) HEMATOCRIT (BEAKER) (test code = 28.6 % 40.1-51.0 L 411) MEAN CORPUSCULAR VOLUME (BEAKER) 89.9 fL 79.0-92.2 (test code = 753) MEAN CORPUSCULAR HEMOGLOBIN 28.3 pg 25.7-32.2 (BEAKER) (test code = 751) MEAN CORPUSCULAR HEMOGLOBIN CONC 31.5 GM/DL 32.3-36.5 L (BEAKER) (test code = 752) RED CELL DISTRIBUTION WIDTH 14.4 % 11.6-14.4 (BEAKER) (test code = 412) PLATELET COUNT (BEAKER) (test 231 K/CU MM 150-450 code = 756) MEAN PLATELET VOLUME (BEAKER) 8.9 fL 9.4-12.4 L (test code = 754) NUCLEATED RED BLOOD CELLS 0 /100 WBC 0-0 (BEAKER) (test code = 413) NEUTROPHILS RELATIVE PERCENT 58 % (BEAKER) (test code = 429) LYMPHOCYTES RELATIVE PERCENT 20 % (BEAKER) (test code = 430) MONOCYTES RELATIVE PERCENT 15 % (BEAKER) (test code = 431) EOSINOPHILS RELATIVE PERCENT 5 % (BEAKER) (test code = 432) BASOPHILS RELATIVE PERCENT 1 % (BEAKER) (test code = 437) NEUTROPHILS ABSOLUTE COUNT 3.39 K/ L 1.78-5.38 (BEAKER) (test code = 670) LYMPHOCYTES ABSOLUTE COUNT 1.18 K/ L 1.32-3.57 L (BEAKER) (test code = 414) MONOCYTES ABSOLUTE COUNT (BEAKER) 0.86 K/ L 0.30-0.82 H (test code = 415) EOSINOPHILS ABSOLUTE COUNT 0.31 K/ L 0.04-0.54 (BEAKER) (test code = 416) BASOPHILS ABSOLUTE COUNT (BEAKER) 0.07 K/ L 0.01-0.08 (test code = 417) IMMATURE GRANULOCYTES-RELATIVE 0 % 0-1 PERCENT (BEAKER) (test code = 2801) BASIC METABOLIC [id number] 06:54:24 Test Item Value Reference Range Interpretation Comments SODIUM (BEAKER) 133 meq/L 136-145 L (test code = 381) POTASSIUM (BEAKER) 4.2 meq/L 3.5-5.1 (test code = 379) CHLORIDE (BEAKER) 99 meq/L 98-107 (test code = 382) CO2 (BEAKER) (test 26 meq/L 22-29 code = 355) BLOOD UREA NITROGEN 42 mg/dL 7-21 H (BEAKER) (test code = 354) CREATININE (BEAKER) 7.21 mg/dL 0.57-1.25 H (test code = 358) GLUCOSE RANDOM 90 mg/dL 70-105 (BEAKER) (test code = 652) CALCIUM (BEAKER) 8.7 mg/dL 8.4-10.2 (test code = 697) EGFR (BEAKER) (test 10 mL/min/1.73 ESTIMA ARI GFR IS code = 1092) sq m NOT ACCURATE CREATININE CLEARANCE IN PREDICTING GLOMERULAR FILTRATION RATE . ESTIMATED GFR I S NOT APPLICABLE FOR DIALYSIS PATIEN TS. Stock Driver ID - PIAYA [id number] 06:42:10 Test Item Value Reference Range Interpretation Comments MAGNESIUM (BEAKER) (test code = 2.4 mg/dL 1.6-2.6 627) Stock Driver ID - PIAYA LPROTHROMBIN [id number] 04:45:47 Test Item Value Reference Range Interpretation Comments PROTIME (BEAKER) 27.8 seconds 11.9-14.2 H (test code = 759) INR (BEAKER) (test 2.62 See_Comment [Automat ed message] code = 370) The system [employer] generated this result transmitted ref erence range: <=5.90. The reference range was not used to int erpret this result as normal/abnormal . RECOMMENDED COUMADIN/WARFARIN INR THERAPY RANGESSTANDARD DOSE: 2.0 - 3.0 Includes: PROPHYLAXIS forvenous thrombosis, systemic embolization; TREATMENT for venous thrombosis and/or pulmonary embolus.HIGH RISK: Target INR is 2.5-3.5 for patients with mechanical heart valves.CBC W/PLT COUNT & AUTO DIFFERENTIAL 2021-03-20 04:40:30 Test Item Value Reference Range Interpretation Comments WHITE BLOOD CELL COUNT (BEAKER) 6.8 K/ L 3.5-10.5 (test code = 775) RED BLOOD CELL COUNT (BEAKER) 3.06 M/ L 4.63-6.08 L (test code = 761) HEMOGLOBIN (BEAKER) (test code = 8.8 GM/DL 13.7-17.5 L 410) HEMATOCRIT (BEAKER) (test code = 27.1 % 40.1-51.0 L 411) MEAN CORPUSCULAR VOLUME (BEAKER) 88.6 fL 79.0-92.2 (test code = 753) MEAN CORPUSCULAR HEMOGLOBIN 28.8 pg 25.7-32.2 (BEAKER) (test code = 751) MEAN CORPUSCULAR HEMOGLOBIN CONC 32.5 GM/DL 32.3-36.5 (BEAKER) (test code = 752) RED CELL DISTRIBUTION WIDTH 14.2 % 11.6-14.4 (BEAKER) (test code = 412) PLATELET COUNT (BEAKER) (test 207 K/CU MM 150-450 code = 756) MEAN PLATELET VOLUME (BEAKER) 8.8 fL 9.4-12.4 L (test code = 754) NUCLEATED RED BLOOD CELLS 0 /100 WBC 0-0 (BEAKER) (test code = 413) NEUTROPHILS RELATIVE PERCENT 63 % (BEAKER) (test code = 429) LYMPHOCYTES RELATIVE PERCENT 18 % (BEAKER) (test code = 430) MONOCYTES RELATIVE PERCENT 11 % (BEAKER) (test code = 431) EOSINOPHILS RELATIVE PERCENT 7 % (BEAKER) (test code = 432) BASOPHILS RELATIVE PERCENT 1 % (BEAKER) (test code = 437) NEUTROPHILS ABSOLUTE COUNT 4.25 K/ L 1.78-5.38 (BEAKER) (test code = 670) LYMPHOCYTES ABSOLUTE COUNT 1.23 K/ L 1.32-3.57 L (BEAKER) (test code = 414) MONOCYTES ABSOLUTE COUNT (BEAKER) 0.72 K/ L 0.30-0.82 (test code = 415) EOSINOPHILS ABSOLUTE COUNT 0.46 K/ L 0.04-0.54 (BEAKER) (test code = 416) BASOPHILS ABSOLUTE COUNT (BEAKER) 0.09 K/ L 0.01-0.08 H (test code = 417) IMMATURE GRANULOCYTES-RELATIVE 1 % 0-1 PERCENT (BEAKER) (test code = 2801) BASIC METABOLIC [id number] 06:18:33 Test Item Value Reference Range Interpretation Comments SODIUM (BEAKER) 135 meq/L 136-145 L (test code = 381) POTASSIUM (BEAKER) 4.3 meq/L 3.5-5.1 (test code = 379) CHLORIDE (BEAKER) 100 meq/L 98-107 (test code = 382) CO2 (BEAKER) (test 26 meq/L 22-29 code = 355) BLOOD UREA NITROGEN 30 mg/dL 7-21 H (BEAKER) (test code = 354) CREATININE (BEAKER) 5.80 mg/dL 0.57-1.25 H (test code = 358) GLUCOSE RANDOM 84 mg/dL 70-105 (BEAKER) (test code = 652) CALCIUM (BEAKER) 9.0 mg/dL 8.4-10.2 (test code = 697) EGFR (BEAKER) (test 13 mL/min/1.73 ESTIMA ARI GFR IS code = 1092) sq m NOT ACCURATE CREATININE CLEARANCE IN PREDICTING GLOMERULAR FILTRATION RATE . ESTIMATED GFR I S NOT APPLICABLE FOR DIALYSIS PATIEN TS. Stock Driver ID - LINA [id number] 06:17:36 Test Item Value Reference Range Interpretation Comments MAGNESIUM (BEAKER) (test code = 2.3 mg/dL 1.6-2.6 627) Stock Driver ID - LINA LPROTHROMBIN TIME/[id number] 05:08:54 Test Item Value Reference Range Interpretation Comments PROTIME (BEAKER) 25.0 seconds 11.9-14.2 H (test code = 759) INR (BEAKER) (test 2.30 See_Comment [Automat ed message] code = 370) The system [employer] generated this result transmitted ref erence range: <=5.90. The reference range was not used to int erpret this result as normal/abnormal . RECOMMENDED COUMADIN/WARFARIN INR THERAPY RANGESSTANDARD DOSE: 2.0 - 3.0 Includes: PROPHYLAXIS forvenous thrombosis, systemic embolization; TREATMENT for venous thrombosis and/or pulmonary embolus.HIGH RISK: Target INR is 2.5-3.5 for patients with mechanical heart valves.CBC W/PLT COUNT & AUTO DIFFERENTIAL 2021-03-19 04:44:43 Test Item Value Reference Range Interpretation Comments WHITE BLOOD CELL COUNT (BEAKER) 6.0 K/ L 3.5-10.5 (test code = 775) RED BLOOD CELL COUNT (BEAKER) 3.27 M/ L 4.63-6.08 L (test code = 761) HEMOGLOBIN (BEAKER) (test code = 9.5 GM/DL 13.7-17.5 L 410) HEMATOCRIT (BEAKER) (test code = 29.8 % 40.1-51.0 L 411) MEAN CORPUSCULAR VOLUME (BEAKER) 91.1 fL 79.0-92.2 (test code = 753) MEAN CORPUSCULAR HEMOGLOBIN 29.1 pg 25.7-32.2 (BEAKER) (test code = 751) MEAN CORPUSCULAR HEMOGLOBIN CONC 31.9 GM/DL 32.3-36.5 L (BEAKER) (test code = 752) RED CELL DISTRIBUTION WIDTH 14.1 % 11.6-14.4 (BEAKER) (test code = 412) PLATELET COUNT (BEAKER) (test 207 K/CU MM 150-450 code = 756) MEAN PLATELET VOLUME (BEAKER) 8.6 fL 9.4-12.4 L (test code = 754) NUCLEATED RED BLOOD CELLS 0 /100 WBC 0-0 (BEAKER) (test code = 413) NEUTROPHILS RELATIVE PERCENT 64 % (BEAKER) (test code = 429) LYMPHOCYTES RELATIVE PERCENT 19 % (BEAKER) (test code = 430) MONOCYTES RELATIVE PERCENT 10 % (BEAKER) (test code = 431) EOSINOPHILS RELATIVE PERCENT 6 % (BEAKER) (test code = 432) BASOPHILS RELATIVE PERCENT 1 % (BEAKER) (test code = 437) NEUTROPHILS ABSOLUTE COUNT 3.84 K/ L 1.78-5.38 (BEAKER) (test code = 670) LYMPHOCYTES ABSOLUTE COUNT 1.14 K/ L 1.32-3.57 L (BEAKER) (test code = 414) MONOCYTES ABSOLUTE COUNT (BEAKER) 0.57 K/ L 0.30-0.82 (test code = 415) EOSINOPHILS ABSOLUTE COUNT 0.33 K/ L 0.04-0.54 (BEAKER) (test code = 416) BASOPHILS ABSOLUTE COUNT (BEAKER) 0.07 K/ L 0.01-0.08 (test code = 417) IMMATURE GRANULOCYTES-RELATIVE 0 % 0-1 PERCENT (BEAKER) (test code = 2801) PROTHROMBIN TIME/[id number] 08:29:25 Test Item Value Reference Range Interpretation Comments PROTIME (BEAKER) 21.5 seconds 11.9-14.2 H (test code = 759) INR (BEAKER) (test 1.90 See_Comment [Automat ed message] code = 370) The system [employer] generated this result transmitted ref erence range: <=5.90. The reference range was not used to int erpret this result as normal/abnormal . RECOMMENDED COUMADIN/WARFARIN INR THERAPY RANGESSTANDARD DOSE: 2.0 - 3.0 Includes: PROPHYLAXIS forvenous thrombosis, systemic embolization; TREATMENT for venous thrombosis and/or pulmonary embolus.HIGH RISK: Target INR is 2.5-3.5 for patients with mechanical heart valves.BASIC METABOLIC [id number] 08:04:03 Test Item Value Reference Range Interpretation Comments SODIUM (BEAKER) 134 meq/L 136-145 L (test code = 381) POTASSIUM (BEAKER) 3.7 meq/L 3.5-5.1 (test code = 379) CHLORIDE (BEAKER) 100 meq/L 98-107 (test code = 382) CO2 (BEAKER) (test 26 meq/L 22-29 code = 355) BLOOD UREA NITROGEN 18 mg/dL 7-21 (BEAKER) (test code = 354) CREATININE (BEAKER) 4.25 mg/dL 0.57-1.25 H (test code = 358) GLUCOSE RANDOM 83 mg/dL 70-105 (BEAKER) (test code = 652) CALCIUM (BEAKER) 8.9 mg/dL 8.4-10.2 (test code = 697) EGFR (BEAKER) (test 19 mL/min/1.73 ESTIMA ARI GFR IS code = 1092) sq m NOT ACCURATE CREATININE CLEARANCE IN PREDICTING GLOMERULAR FILTRATION RATE . ESTIMATED GFR I S NOT APPLICABLE FOR DIALYSIS PATIEN TS. Stock Driver ID - [id number] 07:56:20 Test Item Value Reference Range Interpretation Comments MAGNESIUM (BEAKER) (test code = 2.2 mg/dL 1.6-2.6 627) Stock Driver ID - DBCBC W/PLT COUNT & AUTO [id number] 06:24:39 Test Item Value Reference Range Interpretation Comments WHITE BLOOD CELL COUNT (BEAKER) 5.7 K/ L 3.5-10.5 (test code = 775) RED BLOOD CELL COUNT (BEAKER) 2.97 M/ L 4.63-6.08 L (test code = 761) HEMOGLOBIN (BEAKER) (test code = 8.5 GM/DL 13.7-17.5 L 410) HEMATOCRIT (BEAKER) (test code = 26.9 % 40.1-51.0 L 411) MEAN CORPUSCULAR VOLUME (BEAKER) 90.6 fL 79.0-92.2 (test code = 753) MEAN CORPUSCULAR HEMOGLOBIN 28.6 pg 25.7-32.2 (BEAKER) (test code = 751) MEAN CORPUSCULAR HEMOGLOBIN CONC 31.6 GM/DL 32.3-36.5 L (BEAKER) (test code = 752) RED CELL DISTRIBUTION WIDTH 14.3 % 11.6-14.4 (BEAKER) (test code = 412) PLATELET COUNT (BEAKER) (test 201 K/CU MM 150-450 code = 756) MEAN PLATELET VOLUME (BEAKER) 8.9 fL 9.4-12.4 L (test code = 754) NUCLEATED RED BLOOD CELLS 0 /100 WBC 0-0 (BEAKER) (test code = 413) NEUTROPHILS RELATIVE PERCENT 56 % (BEAKER) (test code = 429) LYMPHOCYTES RELATIVE PERCENT 24 % (BEAKER) (test code = 430) MONOCYTES RELATIVE PERCENT 13 % (BEAKER) (test code = 431) EOSINOPHILS RELATIVE PERCENT 6 % (BEAKER) (test code = 432) BASOPHILS RELATIVE PERCENT 1 % (BEAKER) (test code = 437) NEUTROPHILS ABSOLUTE COUNT 3.20 K/ L 1.78-5.38 (BEAKER) (test code = 670) LYMPHOCYTES ABSOLUTE COUNT 1.38 K/ L 1.32-3.57 (BEAKER) (test code = 414) MONOCYTES ABSOLUTE COUNT (BEAKER) 0.71 K/ L 0.30-0.82 (test code = 415) EOSINOPHILS ABSOLUTE COUNT 0.32 K/ L 0.04-0.54 (BEAKER) (test code = 416) BASOPHILS ABSOLUTE COUNT (BEAKER) 0.06 K/ L 0.01-0.08 (test code = 417) IMMATURE GRANULOCYTES-RELATIVE 0 % 0-1 PERCENT (BEAKER) (test code = 2801) BASIC METABOLIC [id number] 05:13:11 Test Item Value Reference Range Interpretation Comments SODIUM (BEAKER) 137 meq/L 136-145 (test code = 381) POTASSIUM (BEAKER) 4.1 meq/L 3.5-5.1 (test code = 379) CHLORIDE (BEAKER) 100 meq/L 98-107 (test code = 382) CO2 (BEAKER) (test 29 meq/L 22-29 code = 355) BLOOD UREA NITROGEN 25 mg/dL 7-21 H (BEAKER) (test code = 354) CREATININE (BEAKER) 5.23 mg/dL 0.57-1.25 H (test code = 358) GLUCOSE RANDOM 82 mg/dL 70-105 (BEAKER) (test code = 652) CALCIUM (BEAKER) 9.2 mg/dL 8.4-10.2 (test code = 697) EGFR (BEAKER) (test 15 mL/min/1.73 ESTIMA ARI GFR IS code = 1092) sq m NOT ACCURATE CREATININE CLEARANCE IN PREDICTING GLOMERULAR FILTRATION RATE . ESTIMATED GFR I S NOT APPLICABLE FOR DIALYSIS PATIEN TS. Stock Driver ID - [id number] 05:12:41 Test Item Value Reference Range Interpretation Comments MAGNESIUM (BEAKER) (test code = 2.0 mg/dL 1.6-2.6 627) Stock Driver ID - jrlPROTHROMBIN TIME/[id number] 04:43:24 Test Item Value Reference Range Interpretation Comments PROTIME (BEAKER) 19.8 seconds 11.9-14.2 H (test code = 759) INR (BEAKER) (test 1.70 See_Comment [Automat ed message] code = 370) The system [employer] generated this result transmitted ref erence range: <=5.90. The reference range was not used to int erpret this result as normal/abnormal . RECOMMENDED COUMADIN/WARFARIN INR THERAPY RANGESSTANDARD DOSE: 2.0 - 3.0 Includes: PROPHYLAXIS forvenous thrombosis, systemic embolization; TREATMENT for venous thrombosis and/or pulmonary embolus.HIGH RISK: Target INR is 2.5-3.5 for patients with mechanical heart valves.CBC W/PLT COUNT & AUTO DIFFERENTIAL 2021-03-17 04:35:16 Test Item Value Reference Range Interpretation Comments WHITE BLOOD CELL COUNT (BEAKER) 5.0 K/ L 3.5-10.5 (test code = 775) RED BLOOD CELL COUNT (BEAKER) 2.80 M/ L 4.63-6.08 L (test code = 761) HEMOGLOBIN (BEAKER) (test code = 8.1 GM/DL 13.7-17.5 L 410) HEMATOCRIT (BEAKER) (test code = 24.4 % 40.1-51.0 L 411) MEAN CORPUSCULAR VOLUME (BEAKER) 87.1 fL 79.0-92.2 (test code = 753) MEAN CORPUSCULAR HEMOGLOBIN 28.9 pg 25.7-32.2 (BEAKER) (test code = 751) MEAN CORPUSCULAR HEMOGLOBIN CONC 33.2 GM/DL 32.3-36.5 (BEAKER) (test code = 752) RED CELL DISTRIBUTION WIDTH 14.3 % 11.6-14.4 (BEAKER) (test code = 412) PLATELET COUNT (BEAKER) (test 187 K/CU MM 150-450 code = 756) MEAN PLATELET VOLUME (BEAKER) 8.9 fL 9.4-12.4 L (test code = 754) NUCLEATED RED BLOOD CELLS 0 /100 WBC 0-0 (BEAKER) (test code = 413) NEUTROPHILS RELATIVE PERCENT 59 % (BEAKER) (test code = 429) LYMPHOCYTES RELATIVE PERCENT 21 % (BEAKER) (test code = 430) MONOCYTES RELATIVE PERCENT 12 % (BEAKER) (test code = 431) EOSINOPHILS RELATIVE PERCENT 7 % (BEAKER) (test code = 432) BASOPHILS RELATIVE PERCENT 1 % (BEAKER) (test code = 437) NEUTROPHILS ABSOLUTE COUNT 2.92 K/ L 1.78-5.38 (BEAKER) (test code = 670) LYMPHOCYTES ABSOLUTE COUNT 1.05 K/ L 1.32-3.57 L (BEAKER) (test code = 414) MONOCYTES ABSOLUTE COUNT (BEAKER) 0.58 K/ L 0.30-0.82 (test code = 415) EOSINOPHILS ABSOLUTE COUNT 0.37 K/ L 0.04-0.54 (BEAKER) (test code = 416) BASOPHILS ABSOLUTE COUNT (BEAKER) 0.06 K/ L 0.01-0.08 (test code = 417) IMMATURE GRANULOCYTES-RELATIVE 0 % 0-1 PERCENT (BEAKER) (test code = 2801) BASIC METABOLIC [id number] 06:02:17 Test Item Value Reference Range Interpretation Comments SODIUM (BEAKER) 136 meq/L 136-145 (test code = 381) POTASSIUM (BEAKER) 3.8 meq/L 3.5-5.1 (test code = 379) CHLORIDE (BEAKER) 101 meq/L 98-107 (test code = 382) CO2 (BEAKER) (test 28 meq/L 22-29 code = 355) BLOOD UREA NITROGEN 18 mg/dL 7-21 (BEAKER) (test code = 354) CREATININE (BEAKER) 3.58 mg/dL 0.57-1.25 H (test code = 358) GLUCOSE RANDOM 79 mg/dL 70-105 (BEAKER) (test code = 652) CALCIUM (BEAKER) 9.1 mg/dL 8.4-10.2 (test code = 697) EGFR (BEAKER) (test 23 mL/min/1.73 ESTIMA ARI GFR IS code = 1092) sq m NOT ACCURATE CREATININE CLEARANCE IN PREDICTING GLOMERULAR FILTRATION RATE . ESTIMATED GFR I S NOT APPLICABLE FOR DIALYSIS PATIEN TS. Stock Driver ID - LINA [id number] 05:58:16 Test Item Value Reference Range Interpretation Comments PHOSPHORUS (BEAKER) (test code = 3.5 mg/dL 2.3-4.7 604) Stock Driver ID - LINA [id number] 05:58:15 Test Item Value Reference Range Interpretation Comments MAGNESIUM (BEAKER) (test code = 2.0 mg/dL 1.6-2.6 627) Stock Driver ID - LINA LCBC W/PLT COUNT & AUTO [id number] 05:27:17 Test Item Value Reference Range Interpretation Comments WHITE BLOOD CELL COUNT (BEAKER) 5.7 K/ L 3.5-10.5 (test code = 775) RED BLOOD CELL COUNT (BEAKER) 3.09 M/ L 4.63-6.08 L (test code = 761) HEMOGLOBIN (BEAKER) (test code = 8.9 GM/DL 13.7-17.5 L 410) HEMATOCRIT (BEAKER) (test code = 28.1 % 40.1-51.0 L 411) MEAN CORPUSCULAR VOLUME (BEAKER) 90.9 fL 79.0-92.2 (test code = 753) MEAN CORPUSCULAR HEMOGLOBIN 28.8 pg 25.7-32.2 (BEAKER) (test code = 751) MEAN CORPUSCULAR HEMOGLOBIN CONC 31.7 GM/DL 32.3-36.5 L (BEAKER) (test code = 752) RED CELL DISTRIBUTION WIDTH 14.6 % 11.6-14.4 H (BEAKER) (test code = 412) PLATELET COUNT (BEAKER) (test 205 K/CU MM 150-450 code = 756) MEAN PLATELET VOLUME (BEAKER) 8.8 fL 9.4-12.4 L (test code = 754) NUCLEATED RED BLOOD CELLS 0 /100 WBC 0-0 (BEAKER) (test code = 413) NEUTROPHILS RELATIVE PERCENT 65 % (BEAKER) (test code = 429) LYMPHOCYTES RELATIVE PERCENT 16 % (BEAKER) (test code = 430) MONOCYTES RELATIVE PERCENT 11 % (BEAKER) (test code = 431) EOSINOPHILS RELATIVE PERCENT 7 % (BEAKER) (test code = 432) BASOPHILS RELATIVE PERCENT 1 % (BEAKER) (test code = 437) NEUTROPHILS ABSOLUTE COUNT 3.73 K/ L 1.78-5.38 (BEAKER) (test code = 670) LYMPHOCYTES ABSOLUTE COUNT 0.89 K/ L 1.32-3.57 L (BEAKER) (test code = 414) MONOCYTES ABSOLUTE COUNT (BEAKER) 0.62 K/ L 0.30-0.82 (test code = 415) EOSINOPHILS ABSOLUTE COUNT 0.40 K/ L 0.04-0.54 (BEAKER) (test code = 416) BASOPHILS ABSOLUTE COUNT (BEAKER) 0.08 K/ L 0.01-0.08 (test code = 417) IMMATURE GRANULOCYTES-RELATIVE 0 % 0-1 PERCENT (BEAKER) (test code = 2801) PROTHROMBIN [id number] 05:24:58 Test Item Value Reference Range Interpretation Comments PROTIME (BEAKER) 19.3 seconds 11.9-14.2 H (test code = 759) INR (BEAKER) (test 1.65 See_Comment [Automat ed message] code = 370) The system [employer] generated this result transmitted ref erence range: <=5.90. The reference range was not used to int erpret this result as normal/abnormal . RECOMMENDED COUMADIN/WARFARIN INR THERAPY RANGESSTANDARD DOSE: 2.0 - 3.0 Includes: PROPHYLAXIS forvenous thrombosis, systemic embolization; TREATMENT for venous thrombosis and/or pulmonary embolus.HIGH RISK: Target INR is 2.5-3.5 for patients with mechanical heart valves.CALCIUM, [id number] 05:17:50 Test Item Value Reference Range Interpretation Comments CALCIUM IONIZED (BEAKER) (test 1.18 mmol/L 1.12-1.27 code = 698) PH, BLOOD (BEAKER) (test code = 7.44 1810) BASIC METABOLIC [id number] 04:50:11 Test Item Value Reference Range Interpretation Comments SODIUM (BEAKER) 135 meq/L 136-145 L (test code = 381) POTASSIUM (BEAKER) 4.8 meq/L 3.5-5.1 (test code = 379) CHLORIDE (BEAKER) 100 meq/L 98-107 (test code = 382) CO2 (BEAKER) (test 26 meq/L 22-29 code = 355) BLOOD UREA NITROGEN 37 mg/dL 7-21 H (BEAKER) (test code = 354) CREATININE (BEAKER) 5.52 mg/dL 0.57-1.25 H (test code = 358) GLUCOSE RANDOM 83 mg/dL 70-105 (BEAKER) (test code = 652) CALCIUM (BEAKER) 9.8 mg/dL 8.4-10.2 (test code = 697) EGFR (BEAKER) (test 14 mL/min/1.73 ESTIMA ARI GFR IS code = 1092) sq m NOT ACCURATE CREATININE CLEARANCE IN PREDICTING GLOMERULAR FILTRATION RATE . ESTIMATED GFR I S NOT APPLICABLE FOR DIALYSIS PATIEN TS. Stock Driver ID - [id number] 04:37:45 Test Item Value Reference Range Interpretation Comments MAGNESIUM (BEAKER) (test code = 2.1 mg/dL 1.6-2.6 627) Stock Driver ID - jrlPROTHROMBIN TIME/[id number] 04:31:43 Test Item Value Reference Range Interpretation Comments PROTIME (BEAKER) 17.3 seconds 11.9-14.2 H (test code = 759) INR (BEAKER) (test 1.44 See_Comment [Automat ed message] code = 370) The system [employer] generated this result transmitted ref erence range: <=5.90. The reference range was not used to int erpret this result as normal/abnormal . RECOMMENDED COUMADIN/WARFARIN INR THERAPY RANGESSTANDARD DOSE: 2.0 - 3.0 Includes: PROPHYLAXIS forvenous thrombosis, systemic embolization; TREATMENT for venous thrombosis and/or pulmonary embolus.HIGH RISK: Target INR is 2.5-3.5 for patients with mechanical heart valves.CBC W/PLT COUNT & AUTO DIFFERENTIAL 2021-03-15 04:16:33 Test Item Value Reference Range Interpretation Comments WHITE BLOOD CELL COUNT (BEAKER) 5.7 K/ L 3.5-10.5 (test code = 775) RED BLOOD CELL COUNT (BEAKER) 3.20 M/ L 4.63-6.08 L (test code = 761) HEMOGLOBIN (BEAKER) (test code = 9.2 GM/DL 13.7-17.5 L 410) HEMATOCRIT (BEAKER) (test code = 29.5 % 40.1-51.0 L 411) MEAN CORPUSCULAR VOLUME (BEAKER) 92.2 fL 79.0-92.2 (test code = 753) MEAN CORPUSCULAR HEMOGLOBIN 28.8 pg 25.7-32.2 (BEAKER) (test code = 751) MEAN CORPUSCULAR HEMOGLOBIN CONC 31.2 GM/DL 32.3-36.5 L (BEAKER) (test code = 752) RED CELL DISTRIBUTION WIDTH 14.8 % 11.6-14.4 H (BEAKER) (test code = 412) PLATELET COUNT (BEAKER) (test 228 K/CU MM 150-450 code = 756) MEAN PLATELET VOLUME (BEAKER) 8.9 fL 9.4-12.4 L (test code = 754) NUCLEATED RED BLOOD CELLS 0 /100 WBC 0-0 (BEAKER) (test code = 413) NEUTROPHILS RELATIVE PERCENT 65 % (BEAKER) (test code = 429) LYMPHOCYTES RELATIVE PERCENT 18 % (BEAKER) (test code = 430) MONOCYTES RELATIVE PERCENT 8 % (BEAKER) (test code = 431) EOSINOPHILS RELATIVE PERCENT 7 % (BEAKER) (test code = 432) BASOPHILS RELATIVE PERCENT 2 % (BEAKER) (test code = 437) NEUTROPHILS ABSOLUTE COUNT 3.69 K/ L 1.78-5.38 (BEAKER) (test code = 670) LYMPHOCYTES ABSOLUTE COUNT 1.03 K/ L 1.32-3.57 L (BEAKER) (test code = 414) MONOCYTES ABSOLUTE COUNT (BEAKER) 0.47 K/ L 0.30-0.82 (test code = 415) EOSINOPHILS ABSOLUTE COUNT 0.37 K/ L 0.04-0.54 (BEAKER) (test code = 416) BASOPHILS ABSOLUTE COUNT (BEAKER) 0.09 K/ L 0.01-0.08 H (test code = 417) IMMATURE GRANULOCYTES-RELATIVE 1 % 0-1 PERCENT (BEAKER) (test code = 2801) PROTHROMBIN TIME/[id number] 07:23:37 Test Item Value Reference Range Interpretation Comments PROTIME (BEAKER) 18.6 seconds 11.9-14.2 H (test code = 759) INR (BEAKER) (test 1.58 See_Comment [Automat ed message] code = 370) The system [employer] generated this result transmitted ref erence range: <=5.90. The reference range was not used to int erpret this result as normal/abnormal . RECOMMENDED COUMADIN/WARFARIN INR THERAPY RANGESSTANDARD DOSE: 2.0 - 3.0 Includes: PROPHYLAXIS forvenous thrombosis, systemic embolization; TREATMENT for venous thrombosis and/or pulmonary embolus.HIGH RISK: Target INR is 2.5-3.5 for patients with mechanical heart valves.SARS-COV2/RT-PCR ([facility]) 2021-03-14 05:57:12 Test Item Value Reference Range Interpretation Comments SARS-COV2/RT-PCR (test code = Negative Negative [id number]) Negative result for this test determines that SARS-CoV-2 RNA was not present in the specimen above the Limit of Detection (LOD). However, Negative results do not preclude SARS-CoV-2 infection and should not be used as the sole basis for treatment or patient management decisions. Negative results must be combined with clinical observations, patient history, and epidemiological information. A false negative result may occur if a specimen is improperly collected, transported, or handled. A false negative result should be considered if patient's recent exposures or clinical presentation indicate that COVID-19 (SARS-CoV-2) is likely and diagnostic tests for other causes of illness are negative. Re-testing should be considered in cases of suspected false negatives.The limit of detection for this assay is 100 copies/mL.This SARS-CoV-2 test is a real-time RT_PCR test intended for the qualitative detection of nucleic acid from SARS-CoV-2 in a nasopharyngeal swab specimen collected from individuals suspected of COVID-19 by their healthcare provider.This test has not been Food and Drug Administration (FDA) cleared or approved. This is a modified version of an approved Emergency Use Authorization (EUA) and is in the process of review by the FDA. Once authorized by the FDA, the issued EUA will be e ffective until the declaration that circumstances exist justifying the authorization of the emergency use of in vitro diagnostic tests for detection and/or diagnosis of COVID-19 is terminated under Section 564(b)(2) of the Act or the EUA is revoked under Section 564(g) of the Act.Testing was performedusing the Mcdonald SARS-CoV-2 assay.Fact Sheet for Healthcare Providers:https://www.molecular.mcdonald/jermaine/RT SARS-CoV-2 HCP Fact Sheet 51- 871376.pdfFact Sheet for Healthcare Patients:https://www.molecular.mcdonald/jermaine/RT SARS-CoV-2 Patient Fact Sheet EN 51-206626H9.[id number] 02:21:39 Test Item Value Reference Range Interpretation Comments MAGNESIUM (BEAKER) (test code = 1.9 mg/dL 1.6-2.6 627) Stock Driver ID - VALDEZ MBASIC METABOLIC [id number] 02:14:15 Test Item Value Reference Range Interpretation Comments SODIUM (BEAKER) 137 meq/L 136-145 (test code = 381) POTASSIUM (BEAKER) 3.9 meq/L 3.5-5.1 (test code = 379) CHLORIDE (BEAKER) 102 meq/L 98-107 (test code = 382) CO2 (BEAKER) (test 26 meq/L 22-29 code = 355) BLOOD UREA NITROGEN 26 mg/dL 7-21 H (BEAKER) (test code = 354) CREATININE (BEAKER) 4.10 mg/dL 0.57-1.25 H (test code = 358) GLUCOSE RANDOM 115 mg/dL 70-105 H (BEAKER) (test code = 652) CALCIUM (BEAKER) 9.3 mg/dL 8.4-10.2 (test code = 697) EGFR (BEAKER) (test 19 mL/min/1.73 ESTIMA ARI GFR IS code = 1092) sq m NOT ACCURATE CREATININE CLEARANCE IN PREDICTING GLOMERULAR FILTRATION RATE . ESTIMATED GFR I S NOT APPLICABLE FOR DIALYSIS PATIEN TS. Stock Driver ID - VALDEZ MHEMOGLOBIN AND [id number] 01:40:58 Test Item Value Reference Range Interpretation Comments HEMOGLOBIN (BEAKER) (test code = 8.2 GM/DL 13.7-17.5 L 410) HEMATOCRIT (BEAKER) (test code = 25.5 % 40.1-51.0 L 411) Stock Driver ID - [id number], [id number] 23:45:00Unlisted Reason for Exam - Click Yes and Enter Reason Below->NoWill this procedure require oral co ntrast?->NoRAN[facility]: [facility] : 1975 Sex: MFINAL REPORT CLINICAL HISTORY: GI bleed FINDINGS: Multiple axial iliana ges of the abdomen and pelvis were performed without intravenous contrast. Oral contrast was not given. This exam was performed according to our departmental dose-optimization program, which includes automated exposure control, adjustment of the mA and/or kV according to patient size and/or use of theiterative reconstruction technique. The examination is limited by lack of IV contrast. Comparison:01/22/2021 Lower chest: Calcified granulomas in the right lower lung. Small bilateral pleural effusions and right greater than left basilar opacities. Elevated left hemidiaphragm. Cardiomegaly. Previous mitral valve replacement. Liver: Hepatomegaly, measuring 18.4 cm in craniocaudal dimension of the right midclavicular line. Gallbladder and biliary tree: No significant findings. Spleen: No significant findings. Adrenal Glands: No significant findings. Kidneys and ureters: Poor visualization of the involuted, multicystic kidneys. Stomach and Duodenum: No significant findings. Pancreas: No significant fin dings. Bowel: Moderate fecal burden, including a large ball of formed stool in the rectum. Right colonic diverticulosis. No bowel obstruction or pneumatosis intestinalis. Appendix: Normal. Bladder: Decompressed Major vascular structures: Atherosclerotic calcifications. Engorgement of the IVC and hepatic veins suggesting right heart dysfunction. Reproductive organs: No significant findings. Other: Diffuse mesenteric edema and diffuse subcutaneous edema. No free intraperitoneal air. Skeleton: No acutebony abnormality. IMPRESSION: The examination is limited by lack of IV contrast and minimal intra-abdominal fat, as well as extensive mesenteric edema. Moderate fecal burden in normal caliber large intestine, possibly constipation. There is a significant ball of formed stool in the rectum which could reflect fecal impaction. No definite source of gastrointestinal bleeding is identified on this limited examination. Evaluation with nuclear medicine tagged red blood cell scan can be considered, if indic ated. Right colonic diverticulosis. Small bilateral pleural effusions. Left greater than right pulmonary opacities which may reflect some combination of atelectasis and edema. Pneumonitis should be excluded clinically. Cardiomegaly. Hepatomegaly. Poor visualization of the involuted, multicystic kidneys. Signed: Domingo Duron MDReport Verified Date/Time: 03/13/2021 23:45:08 HAPTOGLOBIN 2021-03-13 16:59:02 Test Item Value Reference Range Interpretation Comments HAPTOGLOBIN (BEAKER) (test code = 25 mg/dL 14-258 366) Stock Driver ID - [id number] 15:44:30 Test Item Value Reference Range Interpretation Comments FERRITIN (BEAKER) (test code = 1918.52 ng/mL 5.00-275.00 H 361) Stock Driver ID - DBOperator ID - DBVITAMIN B12 AND [id number] 15:41:58 Test Item Value Reference Range Interpretation Comments VITAMIN B12 (BEAKER) 524 pg/mL 213-816 (test code = 774) FOLATE (BEAKER) 6.10 ng/mL See_Comment L [Automated message] (test code = 362) The system which generated this result transmitted ref erence range: >=7.00. The reference range was not used to interpr et this result as normal/abnormal . Stock Driver ID - DBOperator ID - DBLACTATE DEHYDROGENASE (LDH)2021-03-13 14:43:19 Test Item Value Reference Range Interpretation Comments LACTATE DEHYDROGENASE 580 U/L 125-220 H Specim en moderately (BEAKER) (test code = hemoly zed 635) Stock Driver ID - GEMINI GILBERTYRN, TIBC, % SAT. (WITHOUT FERRITIN)2021-03-13 14:39:07 Test Item Value Reference Range Interpretation Comments IRON (BEAKER) (test code = 547) 63.0 ug/dL 40.0-160.0 TOTAL IRON BINDING CAPACITY 155 ug/dL 250-450 L (BEAKER) (test code = 769) IRON % SATURATION (2) (BEAKER) 41 % 20-55 (test code = 2590) Stock Driver ID - GEMINI FPLASMA FREE [id number] 14:30:24 Test Item Value Reference Range Interpretation Comments HEMOGLOBIN PLASMA (BEAKER) (test 90.0 mg/dl 0.0-30.0 H code = 1054) HEMOGLOBIN AND [id number] 14:23:29 Test Item Value Reference Range Interpretation Comments HEMOGLOBIN (BEAKER) (test code = 8.2 GM/DL 13.7-17.5 L 410) HEMATOCRIT (BEAKER) (test code = 24.8 % 40.1-51.0 L 411) Stock Driver ID - GretaRETICULOCYTE [id number] 14:23:27 Test Item Value Reference Range Interpretation Comments RETICULOCYTE COUNT PCT (BEAKER) (test 2.3 % 0.5-1.8 H code = 575) Stock Driver ID - [id number], CHEST, 1 VIEW, NON [id number] 09:09:00Reason for exam:->chfShould this be performed at the bedside?->Yesafter HD today qt [facility] : 1975 Sex: MFINAL REPORT RAD, CHEST, 1 VIEW, NON DEPT INDICATION: chf COMPARISON: Prior day's exam FINDINGS: Portable frontal view of the chest. IMPRESSION: Support Lines: Dialysis catheter tip overlies the atriocaval junction Lungs and pleura: Bilateral airspace opacities concerning for multifocal pneumonia versus multifocal edema. No significant pneumothorax. Heart and mediastinum: Normal contours. Additional findings: None. Signed: Re Cantu Verified Date/Time: 03/13/2021 09:09:22 Reading Location: [facility] Reading Room BASIC METABOLIC [id number] 04:12:57 Test Item Value Reference Range Interpretation Comments SODIUM (BEAKER) 137 meq/L 136-145 (test code = 381) POTASSIUM (BEAKER) 4.7 meq/L 3.5-5.1 (test code = 379) CHLORIDE (BEAKER) 104 meq/L 98-107 (test code = 382) CO2 (BEAKER) (test 24 meq/L 22-29 code = 355) BLOOD UREA NITROGEN 49 mg/dL 7-21 H (BEAKER) (test code = 354) CREATININE (BEAKER) 6.39 mg/dL 0.57-1.25 H (test code = 358) GLUCOSE RANDOM 84 mg/dL 70-105 (BEAKER) (test code = 652) CALCIUM (BEAKER) 9.5 mg/dL 8.4-10.2 (test code = 697) EGFR (BEAKER) (test 12 mL/min/1.73 ESTIMA ARI GFR IS code = 1092) sq m NOT ACCURATE CREATININE CLEARANCE IN PREDICTING GLOMERULAR FILTRATION RATE . ESTIMATED GFR I S NOT APPLICABLE FOR DIALYSIS PATIEN TS. Stock Driver ID - KENNETH [id number] 04:09:45 Test Item Value Reference Range Interpretation Comments MAGNESIUM (BEAKER) (test code = 2.3 mg/dL 1.6-2.6 627) Stock Driver ID Doretha COOPER WPROTHROMBIN TIME/[id number] 03:56:35 Test Item Value Reference Range Interpretation Comments PROTIME (BEAKER) 19.0 seconds 11.9-14.2 H (test code = 759) INR (BEAKER) (test 1.62 See_Comment [Automat ed message] code = 370) The system Umeng generated this result transmitted ref erence range: <=5.90. The reference range was not used to int erpret this result as normal/abnormal . RECOMMENDED COUMADIN/WARFARIN INR THERAPY RANGESSTANDARD DOSE: 2.0 - 3.0 Includes: PROPHYLAXIS forvenous thrombosis, systemic embolization; TREATMENT for venous thrombosis and/or pulmonary embolus.HIGH RISK: Target INR is 2.5-3.5 for patients with mechanical heart valves.CBC W/PLT COUNT & AUTO DIFFERENTIAL 2021-03-13 03:46:11 Test Item Value Reference Range Interpretation Comments WHITE BLOOD CELL COUNT (BEAKER) 7.1 K/ L 3.5-10.5 (test code = 775) RED BLOOD CELL COUNT (BEAKER) 2.31 M/ L 4.63-6.08 L (test code = 761) HEMOGLOBIN (BEAKER) (test code = 6.8 GM/DL 13.7-17.5 L 410) HEMATOCRIT (BEAKER) (test code = 20.9 % 40.1-51.0 L 411) MEAN CORPUSCULAR VOLUME (BEAKER) 90.5 fL 79.0-92.2 (test code = 753) MEAN CORPUSCULAR HEMOGLOBIN 29.4 pg 25.7-32.2 (BEAKER) (test code = 751) MEAN CORPUSCULAR HEMOGLOBIN CONC 32.5 GM/DL 32.3-36.5 (BEAKER) (test code = 752) RED CELL DISTRIBUTION WIDTH 14.6 % 11.6-14.4 H (BEAKER) (test code = 412) PLATELET COUNT (BEAKER) (test 167 K/CU MM 150-450 code = 756) MEAN PLATELET VOLUME (BEAKER) 9.0 fL 9.4-12.4 L (test code = 754) NUCLEATED RED BLOOD CELLS 0 /100 WBC 0-0 (BEAKER) (test code = 413) NEUTROPHILS RELATIVE PERCENT 68 % (BEAKER) (test code = 429) LYMPHOCYTES RELATIVE PERCENT 18 % (BEAKER) (test code = 430) MONOCYTES RELATIVE PERCENT 9 % (BEAKER) (test code = 431) EOSINOPHILS RELATIVE PERCENT 4 % (BEAKER) (test code = 432) BASOPHILS RELATIVE PERCENT 1 % (BEAKER) (test code = 437) NEUTROPHILS ABSOLUTE COUNT 4.86 K/ L 1.78-5.38 (BEAKER) (test code = 670) LYMPHOCYTES ABSOLUTE COUNT 1.26 K/ L 1.32-3.57 L (BEAKER) (test code = 414) MONOCYTES ABSOLUTE COUNT (BEAKER) 0.66 K/ L 0.30-0.82 (test code = 415) EOSINOPHILS ABSOLUTE COUNT 0.26 K/ L 0.04-0.54 (BEAKER) (test code = 416) BASOPHILS ABSOLUTE COUNT (BEAKER) 0.06 K/ L 0.01-0.08 (test code = 417) IMMATURE GRANULOCYTES-RELATIVE 0 % 0-1 PERCENT (BEAKER) (test code = 2801) SARS-COV2/RT-PCR ([facility])2021-03-12 10:44:31 Test Item Value Reference Range Interpretation Comments SARS-COV2/RT-PCR (test Negative Not Detected, Negative, code = 3160412) See external report for linked test SARS-COV-2 PERFORMING LAB [facility] (test code = 4848221) Negative result for this test determines that SARS-CoV-2 RNA was not present in the specimen above the Limit of Detection (LOD). However, Negative results do not preclude SARS-CoV-2 infection and should not be used as the sole basis for treatment or patient management decisions. Negative results mustbe combined with clinical observations, patient history, and epidemiological information. A false negative result may occur if a specimen is improperly collected, transported or handled. A false negative result should be considered if patient's recent exposures or clinical presentation indicate that COVID-19 (SARS-CoV-2) is likely and diagnostic tests for other causes of illness are negative. Re-testing should be considered in cases of suspected false negatives.The limit of detection for this assay is 800 copies/mL.This SARS CoV-2 test is a real-time RT-PCR test intended for the qualitative detection of nucleic acid from SARS-CoV-2 in a nasopharyngeal swab specimen collected from individuals susp ected of COVID-19 by their healthcare provider.This test has not been Food and Drug Administration (FDA) cleared or approved. This is a modified version of an approved Emergency Use Authorization (EUA) and is in the process of review by the FDA. Once authorized by the FDA, the issued EUA will be effective until the declaration that circumstances exist justifying the authorization of the emergency use of in vitro diagnostic tests for detection and/or diagnosis of COVID-19 is terminated under Section 564(b)(2) of the Act or the EUA is revoked under Section 564(g) of the Act.Fact Sheet for Healthcare Providers:https://www.Shot Stats.Lookback/sites/default/files/product/documents/Fact_Shee q_GI_Ubtfxofvf_Vkcd_GDBR-YiK-3.pdfFact Sheet for Healthcare Patients:https://www.Shot Stats.Lookback/sites/default/files/product/ documents/Qehm_Cuhfb_Mdpcdkvp_Mltv_EOCN-WyA-4.pdfPerforming Laboratory:[facility], [place] [address]DOC, CHEST, 1 VIEW, NON [id number] 08:32:00Reason for exam:->Assess cardiopulmonary statusShould this be performed at the bedside?->Yes [facility] : 1975 Sex: MFINAL REPORT TECHNIQUE: Frontal view of the chest. INDICATION: Assess cardiopulmonary status COMPARISON: 03/11/2021. FINDINGS: LINES/TUBES: Right IJ dialysis catheter tip terminates over the right atrium. LUNGS: Diffuse bilateral pleural and parenchymal opacities are not significantly changed since previous exam. No new consolidation. No pneumothorax. HEART AND MEDIASTINUM: The cardiomediastinal silhouette is stable status post median sternotomy. SOFT TISSUES AND BONES: Unremarkable. IMPRESSION:No significant interval change.. Signed: Jarrell [facility] Verified Date/Time: 03/12/2021 08:32:05 Reading Location: [facility] B1 C013Y CT Body Reading Room BASIC METABOLIC [id number] 07:41:58 Test Item Value Reference Range Interpretation Comments SODIUM (BEAKER) 138 meq/L 136-145 (test code = 381) POTASSIUM (BEAKER) 4.9 meq/L 3.5-5.1 Specimen slightly (test code = 379) hemolyzed CHLORIDE (BEAKER) 104 meq/L 98-107 (test code = 382) CO2 (BEAKER) (test 25 meq/L 22-29 code = 355) BLOOD UREA NITROGEN 35 mg/dL 7-21 H (BEAKER) (test code = 354) CREATININE (BEAKER) 5.12 mg/dL 0.57-1.25 H Specimen slightly (test code = 358) hemolyzed GLUCOSE RANDOM 88 mg/dL 70-105 (BEAKER) (test code = 652) CALCIUM (BEAKER) 9.2 mg/dL 8.4-10.2 (test code = 697) EGFR (BEAKER) (test 15 mL/min/1.73 ESTIMA ARI GFR IS code = 1092) sq m NOT ACCURATE CREATININE CLEARANCE IN PREDICTING GLOMERULAR FILTRATION RATE . ESTIMATED GFR I S NOT APPLICABLE FOR DIALYSIS PATIEN TS. Stock Driver ID Doretha COOPER [facility] (HEMOGRAM ONLY)2021-03-12 05:39:27 Test Item Value Reference Range Interpretation Comments WHITE BLOOD CELL COUNT 12.1 K/ L 3.5-10.5 H (BEAKER) (test code = 775) RED BLOOD CELL COUNT 2.52 M/ L 4.63-6.08 L (BEAKER) (test code = 761) HEMOGLOBIN (BEAKER) 7.3 GM/DL 13.7-17.5 L (test code = 410) HEMATOCRIT (BEAKER) 22.6 % 40.1-51.0 L (test code = 411) MEAN CORPUSCULAR 89.7 fL 79.0-92.2 Discordant MCV VOLUME (BEAKER) (test result s compared to code = 753) previous result s; clinical correl ation required. MEAN CORPUSCULAR 29.0 pg 25.7-32.2 HEMOGLOBIN (BEAKER) (test code = 751) MEAN CORPUSCULAR 32.3 GM/DL 32.3-36.5 HEMOGLOBIN CONC (BEAKER) (test code = 752) RED CELL DISTRIBUTION 14.7 % 11.6-14.4 H WIDTH (BEAKER) (test code = 412) PLATELET COUNT 181 K/CU MM 150-450 (BEAKER) (test code = 756) MEAN PLATELET VOLUME 9.0 fL 9.4-12.4 L (BEAKER) (test code = 754) NUCLEATED RED BLOOD 0 /100 WBC 0-0 CELLS (BEAKER) (test code = 413) BASIC METABOLIC [id number] 04:49:56 Test Item Value Reference Range Interpretation Comments SODIUM (BEAKER) 138 meq/L 136-145 (test code = 381) POTASSIUM (BEAKER) 4.7 meq/L 3.5-5.1 (test code = 379) CHLORIDE (BEAKER) 105 meq/L 98-107 (test code = 382) CO2 (BEAKER) (test 24 meq/L 22-29 code = 355) BLOOD UREA NITROGEN 35 mg/dL 7-21 H (BEAKER) (test code = 354) CREATININE (BEAKER) 4.98 mg/dL 0.57-1.25 H (test code = 358) GLUCOSE RANDOM 89 mg/dL 70-105 (BEAKER) (test code = 652) CALCIUM (BEAKER) 9.1 mg/dL 8.4-10.2 (test code = 697) EGFR (BEAKER) (test 16 mL/min/1.73 ESTIMA ARI GFR IS code = 1092) sq m NOT ACCURATE CREATININE CLEARANCE IN PREDICTING GLOMERULAR FILTRATION RATE . ESTIMATED GFR I S NOT APPLICABLE FOR DIALYSIS PATIEN TS. Stock Driver ID - KENNETH RUBIYOHANA SENSITIVITY TROPONIN [id number] 04:31:11 Test Item Value Reference Range Interpretation Comments HIGH SENSITIVITY 113 pg/ml See_Comment H [Automated message] TROPONIN I (test code The sy stem which = [id number]) generated this result transmitted ref erence range: <=35. Th e reference range was not used to int erpret this result as normal/abnormal . Stock Driver ID - KENNETH WThe DIRECTOR [facility] STAT High Sensitivity Troponin-I results should be used in conjunction with other diagnostic information such as ECG, clinical observations and information, and patient symptoms to aid in the diagnosis of OK.PROTHROMBIN TIME/[id number] 04:20:43 Test Item Value Reference Range Interpretation Comments PROTIME (BEAKER) 19.7 seconds 11.9-14.2 H (test code = 759) INR (BEAKER) (test 1.69 See_Comment [Automat ed message] code = 370) The system Umeng generated this result transmitted ref erence range: <=5.90. The reference range was not used to int erpret this result as normal/abnormal . RECOMMENDED COUMADIN/WARFARIN INR THERAPY RANGESSTANDARD DOSE: 2.0 - 3.0 Includes: PROPHYLAXIS forvenous thrombosis, systemic embolization; TREATMENT for venous thrombosis and/or pulmonary embolus.HIGH RISK: Target INR is 2.5-3.5 for patients with mechanical heart valves.BASIC METABOLIC [id number] 21:53:20 Test Item Value Reference Range Interpretation Comments SODIUM (BEAKER) 137 meq/L 136-145 (test code = 381) POTASSIUM (BEAKER) 4.2 meq/L 3.5-5.1 (test code = 379) CHLORIDE (BEAKER) 102 meq/L 98-107 (test code = 382) CO2 (BEAKER) (test 25 meq/L 22-29 code = 355) BLOOD UREA NITROGEN 33 mg/dL 7-21 H (BEAKER) (test code = 354) CREATININE (BEAKER) 4.86 mg/dL 0.57-1.25 H (test code = 358) GLUCOSE RANDOM 97 mg/dL 70-105 (BEAKER) (test code = 652) CALCIUM (BEAKER) 9.0 mg/dL 8.4-10.2 (test code = 697) EGFR (BEAKER) (test 16 mL/min/1.73 ESTIMA ARI GFR IS code = 1092) sq m NOT ACCURATE CREATININE CLEARANCE IN PREDICTING GLOMERULAR FILTRATION RATE . ESTIMATED GFR I S NOT APPLICABLE FOR DIALYSIS PATIEN TS. Stock Driver ID - [id number] 21:52:49 Test Item Value Reference Range Interpretation Comments PHOSPHORUS (BEAKER) (test code = 3.7 mg/dL 2.3-4.7 604) Stock Driver ID - DBCBC W/PLT COUNT & AUTO [id number] 21:37:55 Test Item Value Reference Range Interpretation Comments WHITE BLOOD CELL COUNT (BEAKER) 11.6 K/ L 3.5-10.5 H (test code = 775) RED BLOOD CELL COUNT (BEAKER) 2.87 M/ L 4.63-6.08 L (test code = 761) HEMOGLOBIN (BEAKER) (test code = 8.4 GM/DL 13.7-17.5 L 410) HEMATOCRIT (BEAKER) (test code = 27.5 % 40.1-51.0 L 411) MEAN CORPUSCULAR VOLUME (BEAKER) 95.8 fL 79.0-92.2 H (test code = 753) MEAN CORPUSCULAR HEMOGLOBIN 29.3 pg 25.7-32.2 (BEAKER) (test code = 751) MEAN CORPUSCULAR HEMOGLOBIN CONC 30.5 GM/DL 32.3-36.5 L (BEAKER) (test code = 752) RED CELL DISTRIBUTION WIDTH 15.0 % 11.6-14.4 H (BEAKER) (test code = 412) PLATELET COUNT (BEAKER) (test 199 K/CU MM 150-450 code = 756) MEAN PLATELET VOLUME (BEAKER) 9.0 fL 9.4-12.4 L (test code = 754) NUCLEATED RED BLOOD CELLS 0 /100 WBC 0-0 (BEAKER) (test code = 413) NEUTROPHILS RELATIVE PERCENT 87 % (BEAKER) (test code = 429) LYMPHOCYTES RELATIVE PERCENT 7 % (BEAKER) (test code = 430) MONOCYTES RELATIVE PERCENT 5 % (BEAKER) (test code = 431) EOSINOPHILS RELATIVE PERCENT 1 % (BEAKER) (test code = 432) BASOPHILS RELATIVE PERCENT 1 % (BEAKER) (test code = 437) NEUTROPHILS ABSOLUTE COUNT 10.01 K/ L 1.78-5.38 H (BEAKER) (test code = 670) LYMPHOCYTES ABSOLUTE COUNT 0.75 K/ L 1.32-3.57 L (BEAKER) (test code = 414) MONOCYTES ABSOLUTE COUNT (BEAKER) 0.57 K/ L 0.30-0.82 (test code = 415) EOSINOPHILS ABSOLUTE COUNT 0.15 K/ L 0.04-0.54 (BEAKER) (test code = 416) BASOPHILS ABSOLUTE COUNT (BEAKER) 0.06 K/ L 0.01-0.08 (test code = 417) IMMATURE GRANULOCYTES-RELATIVE 0 % 0-1 PERCENT (BEAKER) (test code = 2801) B-TYPE NATRIURETIC FACTOR (BNP)2021-03-11 20:09:11 Test Item Value Reference Range Interpretation Comments B-TYPE NATRIURETIC PEPTIDE 4884 pg/mL 0-100 H (BEAKER) (test code = 700) Stock Driver ID - KT GRAD, CHEST, 1 VIEW, NON [id number] 19:27:00Reason for exam:->[facility] : 1975 Sex: MFINAL REPORT History: Shortness of breath. Comparison: 02/25/2021 Michele jimenezs: A single view of the chest is submitted. There is stable enlargement of the cardiac silhouette. The patient has undergone previous cardiac valve replacement. There are extensive bilateral interstitial and airspace opacities, which could reflect some combination of pulmonary edema and atelectasis. Multifocal pneumonitis should be excluded clinically. There is no pneumothorax or acute bony abnormality. A tunneled right IJ dialysis catheter is in stable position. Signed: Domingo Duron MDReport Verified Date/Time: 03/11/2021 19:27:48 [id number] 19:26:03 Test Item Value Reference Range Interpretation Comments POC-GLUCOSE ([facility] 101 mg/dL 70-110 : TESTE D AT [place] [address] (test code = 1855) [facility], [address]: Stock Driver/Techni won ID = [id number] for MARF [place], LUCA [id number] 19:26:01 Test Item Value Reference Range Interpretation Comments POC-HEMATOCRIT 27 % 40-50 L : Stock Driver/Te chnician ID = ([facility] (test code = 749088 for MARFIL, LUCA 185) [id number] 19:25:59 Test Item Value Reference Range Interpretation Comments POC-HEMOGLOBIN 9.2 g/dL 13.0-16.8 L : TESTED AT [place] [address] ([facility] (test code = NORM [place] [facility], 1856) [address]: Stock Driver/Techni won ID = [id number] for MARF [place], [place] [id number] 19:25:57 Test Item Value Reference Range Interpretation Comments POC-POTASSIUM 4.1 meq/L 3.6-5.5 : TESTED AT [place] [address] ([facility] (test code [facility], = 1540) [address]: Stock Driver/Techni won ID = [id number] for MARF [place], [place] [id number] 19:25:55 Test Item Value Reference Range Interpretation Comments POC-SODIUM ([facility] 140 meq/L 135-148 : TESTED AT [facility] [address] (test code = 1542) [place] [facility] [place], [address]: Stock Driver/Techni won ID = [id number] for LUCA ARAMBULA POCT-BLOOD GASES, [id number] 19:25:53 Test Item Value Reference Range Interpretation Comments TEMP, CELSIUS-POC 98.0 (BEAKER) (test code = 1834) FIO2-POC (BEAKER) 40 (test code = 1835) PH, ARTERIAL-POC 7.375 7.350-7.450 (BEAKER) (test code = 1836) PCO2, ARTERIAL-POC 52.1 mm Hg 35.0-45.0 H If pO2 is >180, pCO2 may (BEAKER) (test code be posit ively biased = 1837) PO2, ARTERIAL-POC 26.0 mm Hg 80.0-90.0 LL (BEAKER) (test code = 1838) SO2, ARTERIAL-POC 46.0 % 96.0-97.0 L (BEAKER) (test code = 1839) HCO3, ARTERIAL-POC 30.6 meq/L 21.0-29.0 H (BEAKER) (test code = 1840) BASE EXCESS, 5.0 meq/L -2.0-3.0 H : TESTED AT [facility] [address] ARTERIAL-POC [facility], (BEAKER) (test code [address]: = 1841) Stock Driver/Techni won ID = [id number] for LUCA ARAMBULA PROTHROMBIN [id number] 05:38:58 Test Item Value Reference Range Interpretation Comments PROTIME (BEAKER) 22.0 seconds 11.9-14.2 H (test code = 759) INR (BEAKER) (test 1.95 See_Comment [Automat ed message] code = 370) The system [employer] generated this result transmitted ref erence range: <=5.90. The reference range was not used to int erpret this result as normal/abnormal . RECOMMENDED COUMADIN/WARFARIN INR THERAPY RANGESSTANDARD DOSE: 2.0 - 3.0 Includes: PROPHYLAXIS forvenous thrombosis, systemic embolization; TREATMENT for venous thrombosis and/or pulmonary embolus.HIGH RISK: Target INR is 2.5-3.5 for patients with mechanical heart valves.BASIC METABOLIC [id number] 07:13:10 Test Item Value Reference Range Interpretation Comments SODIUM (BEAKER) 137 meq/L 136-145 (test code = 381) POTASSIUM (BEAKER) 4.5 meq/L 3.5-5.1 (test code = 379) CHLORIDE (BEAKER) 102 meq/L 98-107 (test code = 382) CO2 (BEAKER) (test 26 meq/L 22-29 code = 355) BLOOD UREA NITROGEN 50 mg/dL 7-21 H (BEAKER) (test code = 354) CREATININE (BEAKER) 6.71 mg/dL 0.57-1.25 H (test code = 358) GLUCOSE RANDOM 82 mg/dL 70-105 (BEAKER) (test code = 652) CALCIUM (BEAKER) 9.2 mg/dL 8.4-10.2 (test code = 697) EGFR (BEAKER) (test 11 mL/min/1.73 ESTIMA ARI GFR IS code = 1092) sq m NOT ACCURATE CREATININE CLEARANCE IN PREDICTING GLOMERULAR FILTRATION RATE . ESTIMATED GFR I S NOT APPLICABLE FOR DIALYSIS PATIEN TS. Stock Driver ID - [id number] 07:11:21 Test Item Value Reference Range Interpretation Comments PHOSPHORUS (BEAKER) (test code = 5.0 mg/dL 2.3-4.7 H 604) Stock Driver ID - ADMINPROTHROMBIN TIME/[id number] 06:33:50 Test Item Value Reference Range Interpretation Comments PROTIME (BEAKER) 33.3 seconds 11.9-14.2 H (test code = 759) INR (BEAKER) (test 3.30 See_Comment [Automat ed message] code = 370) The system Umeng generated this result transmitted ref erence range: <=5.90. The reference range was not used to int erpret this result as normal/abnormal . RECOMMENDED COUMADIN/WARFARIN INR THERAPY RANGESSTANDARD DOSE: 2.0 - 3.0 Includes: PROPHYLAXIS forvenous thrombosis, systemic embolization; TREATMENT for venous thrombosis and/or pulmonary embolus.HIGH RISK: Target INR is 2.5-3.5 for patients with mechanical heart valves.BASIC METABOLIC [id number] 08:17:53 Test Item Value Reference Range Interpretation Comments SODIUM (BEAKER) 137 meq/L 136-145 (test code = 381) POTASSIUM (BEAKER) 4.0 meq/L 3.5-5.1 (test code = 379) CHLORIDE (BEAKER) 103 meq/L 98-107 (test code = 382) CO2 (BEAKER) (test 25 meq/L 22-29 code = 355) BLOOD UREA NITROGEN 38 mg/dL 7-21 H (BEAKER) (test code = 354) CREATININE (BEAKER) 5.31 mg/dL 0.57-1.25 H (test code = 358) GLUCOSE RANDOM 89 mg/dL 70-105 (BEAKER) (test code = 652) CALCIUM (BEAKER) 8.7 mg/dL 8.4-10.2 (test code = 697) EGFR (BEAKER) (test 14 mL/min/1.73 ESTIMA ARI GFR IS code = 1092) sq m NOT ACCURATE CREATININE CLEARANCE IN PREDICTING GLOMERULAR FILTRATION RATE . ESTIMATED GFR I S NOT APPLICABLE FOR DIALYSIS PATIEN TS. Stock Driver ID - ADMINPROTHROMBIN TIME/[id number] 06:12:32 Test Item Value Reference Range Interpretation Comments PROTIME (BEAKER) 35.0 seconds 11.9-14.2 H (test code = 759) INR (BEAKER) (test 3.52 See_Comment [Automat ed message] code = 370) The system Umeng generated this result transmitted ref erence range: <=5.90. The reference range was not used to int erpret this result as normal/abnormal . RECOMMENDED COUMADIN/WARFARIN INR THERAPY RANGESSTANDARD DOSE: 2.0 - 3.0 Includes: PROPHYLAXIS forvenous thrombosis, systemic embolization; TREATMENT for venous thrombosis and/or pulmonary embolus.HIGH RISK: Target INR is 2.5-3.5 for patients with mechanical heart valves.CBC W/PLT COUNT & AUTO DIFFERENTIAL 2021-03-08 06:09:25 Test Item Value Reference Range Interpretation Comments WHITE BLOOD CELL COUNT (BEAKER) 6.7 K/ L 3.5-10.5 (test code = 775) RED BLOOD CELL COUNT (BEAKER) 2.57 M/ L 4.63-6.08 L (test code = 761) HEMOGLOBIN (BEAKER) (test code = 7.5 GM/DL 13.7-17.5 L 410) HEMATOCRIT (BEAKER) (test code = 23.9 % 40.1-51.0 L 411) MEAN CORPUSCULAR VOLUME (BEAKER) 93.0 fL 79.0-92.2 H (test code = 753) MEAN CORPUSCULAR HEMOGLOBIN 29.2 pg 25.7-32.2 (BEAKER) (test code = 751) MEAN CORPUSCULAR HEMOGLOBIN CONC 31.4 GM/DL 32.3-36.5 L (BEAKER) (test code = 752) RED CELL DISTRIBUTION WIDTH 15.4 % 11.6-14.4 H (BEAKER) (test code = 412) PLATELET COUNT (BEAKER) (test 171 K/CU MM 150-450 code = 756) MEAN PLATELET VOLUME (BEAKER) 8.7 fL 9.4-12.4 L (test code = 754) NUCLEATED RED BLOOD CELLS 0 /100 WBC 0-0 (BEAKER) (test code = 413) NEUTROPHILS RELATIVE PERCENT 68 % (BEAKER) (test code = 429) LYMPHOCYTES RELATIVE PERCENT 15 % (BEAKER) (test code = 430) MONOCYTES RELATIVE PERCENT 10 % (BEAKER) (test code = 431) EOSINOPHILS RELATIVE PERCENT 5 % (BEAKER) (test code = 432) BASOPHILS RELATIVE PERCENT 1 % (BEAKER) (test code = 437) NEUTROPHILS ABSOLUTE COUNT 4.56 K/ L 1.78-5.38 (BEAKER) (test code = 670) LYMPHOCYTES ABSOLUTE COUNT 1.02 K/ L 1.32-3.57 L (BEAKER) (test code = 414) MONOCYTES ABSOLUTE COUNT (BEAKER) 0.65 K/ L 0.30-0.82 (test code = 415) EOSINOPHILS ABSOLUTE COUNT 0.34 K/ L 0.04-0.54 (BEAKER) (test code = 416) BASOPHILS ABSOLUTE COUNT (BEAKER) 0.07 K/ L 0.01-0.08 (test code = 417) IMMATURE GRANULOCYTES-RELATIVE 1 % 0-1 PERCENT (BEAKER) (test code = 2801) HEMOGLOBIN AND [id number] 08:45:35 Test Item Value Reference Range Interpretation Comments HEMOGLOBIN (BEAKER) (test code = 6.7 GM/DL 13.7-17.5 L 410) HEMATOCRIT (BEAKER) (test code = 21.5 % 40.1-51.0 L 411) Stock Driver ID - [id number] METABOLIC [id number] 07:38:51 Test Item Value Reference Range Interpretation Comments SODIUM (BEAKER) 134 meq/L 136-145 L (test code = 381) POTASSIUM (BEAKER) 4.8 meq/L 3.5-5.1 (test code = 379) CHLORIDE (BEAKER) 101 meq/L 98-107 (test code = 382) CO2 (BEAKER) (test 24 meq/L 22-29 code = 355) BLOOD UREA NITROGEN 61 mg/dL 7-21 H (BEAKER) (test code = 354) CREATININE (BEAKER) 7.42 mg/dL 0.57-1.25 H (test code = 358) GLUCOSE RANDOM 83 mg/dL 70-105 (BEAKER) (test code = 652) CALCIUM (BEAKER) 8.8 mg/dL 8.4-10.2 (test code = 697) EGFR (BEAKER) (test 10 mL/min/1.73 ESTIMA ARI GFR IS code = 1092) sq m NOT ACCURATE CREATININE CLEARANCE IN PREDICTING GLOMERULAR FILTRATION RATE . ESTIMATED GFR I S NOT APPLICABLE FOR DIALYSIS PATIEN TS. Stock Driver ID - GEMINI FPROTHROMBIN TIME/[id number] 07:17:17 Test Item Value Reference Range Interpretation Comments PROTIME (BEAKER) 38.7 seconds 11.9-14.2 H (test code = 759) INR (BEAKER) (test 4.00 See_Comment [Automat ed message] code = 370) The system Umeng generated this result transmitted ref erence range: <=5.90. The reference range was not used to int erpret this result as normal/abnormal . RECOMMENDED COUMADIN/WARFARIN INR THERAPY RANGESSTANDARD DOSE: 2.0 - 3.0 Includes: PROPHYLAXIS forvenous thrombosis, systemic embolization; TREATMENT for venous thrombosis and/or pulmonary embolus.HIGH RISK: Target INR is 2.5-3.5 for patients with mechanical heart valves.CBC W/PLT COUNT & AUTO DIFFERENTIAL 2021-03-07 07:01:38 Test Item Value Reference Range Interpretation Comments WHITE BLOOD CELL COUNT (BEAKER) 6.8 K/ L 3.5-10.5 (test code = 775) RED BLOOD CELL COUNT (BEAKER) 2.27 M/ L 4.63-6.08 L (test code = 761) HEMOGLOBIN (BEAKER) (test code = 6.6 GM/DL 13.7-17.5 L 410) HEMATOCRIT (BEAKER) (test code = 21.5 % 40.1-51.0 L 411) MEAN CORPUSCULAR VOLUME (BEAKER) 94.7 fL 79.0-92.2 H (test code = 753) MEAN CORPUSCULAR HEMOGLOBIN 29.1 pg 25.7-32.2 (BEAKER) (test code = 751) MEAN CORPUSCULAR HEMOGLOBIN CONC 30.7 GM/DL 32.3-36.5 L (BEAKER) (test code = 752) RED CELL DISTRIBUTION WIDTH 15.7 % 11.6-14.4 H (BEAKER) (test code = 412) PLATELET COUNT (BEAKER) (test 166 K/CU MM 150-450 code = 756) MEAN PLATELET VOLUME (BEAKER) 9.0 fL 9.4-12.4 L (test code = 754) NUCLEATED RED BLOOD CELLS 0 /100 WBC 0-0 (BEAKER) (test code = 413) NEUTROPHILS RELATIVE PERCENT 68 % (BEAKER) (test code = 429) LYMPHOCYTES RELATIVE PERCENT 18 % (BEAKER) (test code = 430) MONOCYTES RELATIVE PERCENT 9 % (BEAKER) (test code = 431) EOSINOPHILS RELATIVE PERCENT 4 % (BEAKER) (test code = 432) BASOPHILS RELATIVE PERCENT 1 % (BEAKER) (test code = 437) NEUTROPHILS ABSOLUTE COUNT 4.60 K/ L 1.78-5.38 (BEAKER) (test code = 670) LYMPHOCYTES ABSOLUTE COUNT 1.25 K/ L 1.32-3.57 L (BEAKER) (test code = 414) MONOCYTES ABSOLUTE COUNT (BEAKER) 0.60 K/ L 0.30-0.82 (test code = 415) EOSINOPHILS ABSOLUTE COUNT 0.26 K/ L 0.04-0.54 (BEAKER) (test code = 416) BASOPHILS ABSOLUTE COUNT (BEAKER) 0.07 K/ L 0.01-0.08 (test code = 417) IMMATURE GRANULOCYTES-RELATIVE 0 % 0-1 PERCENT (BEAKER) (test code = 2801) PROTHROMBIN TIME/[id number] 06:57:22 Test Item Value Reference Range Interpretation Comments PROTIME (BEAKER) 39.4 seconds 11.9-14.2 H (test code = 759) INR (BEAKER) (test 4.08 See_Comment [Automat ed message] code = 370) The system Umeng generated this result transmitted ref erence range: <=5.90. The reference range was not used to int erpret this result as normal/abnormal . RECOMMENDED COUMADIN/WARFARIN INR THERAPY RANGESSTANDARD DOSE: 2.0 - 3.0 Includes: PROPHYLAXIS forvenous thrombosis, systemic embolization; TREATMENT for venous thrombosis and/or pulmonary embolus.HIGH RISK: Target INR is 2.5-3.5 for patients with mechanical heart valves.PROTHROMBIN TIME/[id number] 05:52:25 Test Item Value Reference Range Interpretation Comments PROTIME (BEAKER) 36.7 seconds 11.9-14.2 H (test code = 759) INR (BEAKER) (test 3.74 See_Comment [Automat ed message] code = 370) The system Umeng generated this result transmitted ref erence range: <=5.90. The reference range was not used to int erpret this result as normal/abnormal . RECOMMENDED COUMADIN/WARFARIN INR THERAPY RANGESSTANDARD DOSE: 2.0 - 3.0 Includes: PROPHYLAXIS forvenous thrombosis, systemic embolization; TREATMENT for venous thrombosis and/or pulmonary embolus.HIGH RISK: Target INR is 2.5-3.5 for patients with mechanical heart valves.BASIC METABOLIC [id number] 05:13:18 Test Item Value Reference Range Interpretation Comments SODIUM (BEAKER) 138 meq/L 136-145 (test code = 381) POTASSIUM (BEAKER) 4.1 meq/L 3.5-5.1 (test code = 379) CHLORIDE (BEAKER) 103 meq/L 98-107 (test code = 382) CO2 (BEAKER) (test 24 meq/L 22-29 code = 355) BLOOD UREA NITROGEN 49 mg/dL 7-21 H (BEAKER) (test code = 354) CREATININE (BEAKER) 6.10 mg/dL 0.57-1.25 H (test code = 358) GLUCOSE RANDOM 102 mg/dL 70-105 (BEAKER) (test code = 652) CALCIUM (BEAKER) 9.0 mg/dL 8.4-10.2 (test code = 697) EGFR (BEAKER) (test 12 mL/min/1.73 ESTIMA ARI GFR IS code = 1092) sq m NOT ACCURATE CREATININE CLEARANCE IN PREDICTING GLOMERULAR FILTRATION RATE . ESTIMATED GFR I S NOT APPLICABLE FOR DIALYSIS PATIEN TS. Stock Driver ID - VALDEZ MCBC W/PLT COUNT & AUTO [id number] 05:00:45 Test Item Value Reference Range Interpretation Comments WHITE BLOOD CELL COUNT (BEAKER) 7.7 K/ L 3.5-10.5 (test code = 775) RED BLOOD CELL COUNT (BEAKER) 2.54 M/ L 4.63-6.08 L (test code = 761) HEMOGLOBIN (BEAKER) (test code = 7.5 GM/DL 13.7-17.5 L 410) HEMATOCRIT (BEAKER) (test code = 23.1 % 40.1-51.0 L 411) MEAN CORPUSCULAR VOLUME (BEAKER) 90.9 fL 79.0-92.2 (test code = 753) MEAN CORPUSCULAR HEMOGLOBIN 29.5 pg 25.7-32.2 (BEAKER) (test code = 751) MEAN CORPUSCULAR HEMOGLOBIN CONC 32.5 GM/DL 32.3-36.5 (BEAKER) (test code = 752) RED CELL DISTRIBUTION WIDTH 15.3 % 11.6-14.4 H (BEAKER) (test code = 412) PLATELET COUNT (BEAKER) (test 162 K/CU MM 150-450 code = 756) MEAN PLATELET VOLUME (BEAKER) 9.2 fL 9.4-12.4 L (test code = 754) NUCLEATED RED BLOOD CELLS 0 /100 WBC 0-0 (BEAKER) (test code = 413) NEUTROPHILS RELATIVE PERCENT 70 % (BEAKER) (test code = 429) LYMPHOCYTES RELATIVE PERCENT 16 % (BEAKER) (test code = 430) MONOCYTES RELATIVE PERCENT 9 % (BEAKER) (test code = 431) EOSINOPHILS RELATIVE PERCENT 4 % (BEAKER) (test code = 432) BASOPHILS RELATIVE PERCENT 1 % (BEAKER) (test code = 437) NEUTROPHILS ABSOLUTE COUNT 5.35 K/ L 1.78-5.38 (BEAKER) (test code = 670) LYMPHOCYTES ABSOLUTE COUNT 1.21 K/ L 1.32-3.57 L (BEAKER) (test code = 414) MONOCYTES ABSOLUTE COUNT (BEAKER) 0.72 K/ L 0.30-0.82 (test code = 415) EOSINOPHILS ABSOLUTE COUNT 0.28 K/ L 0.04-0.54 (BEAKER) (test code = 416) BASOPHILS ABSOLUTE COUNT (BEAKER) 0.06 K/ L 0.01-0.08 (test code = 417) IMMATURE GRANULOCYTES-RELATIVE 1 % 0-1 PERCENT (BEAKER) (test code = 2801) PROTHROMBIN TIME/[id number] 04:50:41 Test Item Value Reference Range Interpretation Comments PROTIME (BEAKER) 32.7 seconds 11.9-14.2 H (test code = 759) INR (BEAKER) (test 3.23 See_Comment [Automat ed message] code = 370) The system Umeng generated this result transmitted ref erence range: <=5.90. The reference range was not used to int erpret this result as normal/abnormal . RECOMMENDED COUMADIN/WARFARIN INR THERAPY RANGESSTANDARD DOSE: 2.0 - 3.0 Includes: PROPHYLAXIS forvenous thrombosis, systemic embolization; TREATMENT for venous thrombosis and/or pulmonary embolus.HIGH RISK: Target INR is 2.5-3.5 for patients with mechanical heart valves.HEPATITIS B [id number] 07:32:34 Test Item Value Reference Range Interpretation Comments HEPATITIS B CORE TOTAL ANTIBODY Nonreactive Nonreactive (BEAKER) (test code = 497) HEPATITIS B SURFACE ANTIBODY 2822.9 mIU/mL <8.0 H (BEAKER) (test code = 647) HEPATITIS B SURFACE ANTIGEN (2) Nonreactive Nonreactive (BEAKER) (test code = 2585) Stock Driver ID - EMERSONOperator ID - EMERSONBASIC METABOLIC [id number] 06:32:52 Test Item Value Reference Range Interpretation Comments SODIUM (BEAKER) 139 meq/L 136-145 (test code = 381) POTASSIUM (BEAKER) 4.2 meq/L 3.5-5.1 (test code = 379) CHLORIDE (BEAKER) 104 meq/L 98-107 (test code = 382) CO2 (BEAKER) (test 27 meq/L 22-29 code = 355) BLOOD UREA NITROGEN 37 mg/dL 7-21 H (BEAKER) (test code = 354) CREATININE (BEAKER) 4.87 mg/dL 0.57-1.25 H (test code = 358) GLUCOSE RANDOM 82 mg/dL 70-105 (BEAKER) (test code = 652) CALCIUM (BEAKER) 8.7 mg/dL 8.4-10.2 (test code = 697) EGFR (BEAKER) (test 16 mL/min/1.73 ESTIMA ARI GFR IS code = 1092) sq m NOT ACCURATE CREATININE CLEARANCE IN PREDICTING GLOMERULAR FILTRATION RATE . ESTIMATED GFR I S NOT APPLICABLE FOR DIALYSIS PATIEN TS. Stock Driver ID - JRLPROTHROMBIN TIME/[id number] 05:58:24 Test Item Value Reference Range Interpretation Comments PROTIME (BEAKER) 32.5 seconds 11.9-14.2 H (test code = 759) INR (BEAKER) (test 3.20 See_Comment [Automat ed message] code = 370) The system Umeng generated this result transmitted ref erence range: <=5.90. The reference range was not used to int erpret this result as normal/abnormal . RECOMMENDED COUMADIN/WARFARIN INR THERAPY RANGESSTANDARD DOSE: 2.0 - 3.0 Includes: PROPHYLAXIS forvenous thrombosis, systemic embolization; TREATMENT for venous thrombosis and/or pulmonary embolus.HIGH RISK: Target INR is 2.5-3.5 for patients with mechanical heart valves.CBC W/PLT COUNT & AUTO DIFFERENTIAL 2021-03-03 05:52:02 Test Item Value Reference Range Interpretation Comments WHITE BLOOD CELL COUNT (BEAKER) 7.9 K/ L 3.5-10.5 (test code = 775) RED BLOOD CELL COUNT (BEAKER) 2.55 M/ L 4.63-6.08 L (test code = 761) HEMOGLOBIN (BEAKER) (test code = 7.5 GM/DL 13.7-17.5 L 410) HEMATOCRIT (BEAKER) (test code = 22.9 % 40.1-51.0 L 411) MEAN CORPUSCULAR VOLUME (BEAKER) 89.8 fL 79.0-92.2 (test code = 753) MEAN CORPUSCULAR HEMOGLOBIN 29.4 pg 25.7-32.2 (BEAKER) (test code = 751) MEAN CORPUSCULAR HEMOGLOBIN CONC 32.8 GM/DL 32.3-36.5 (BEAKER) (test code = 752) RED CELL DISTRIBUTION WIDTH 15.7 % 11.6-14.4 H (BEAKER) (test code = 412) PLATELET COUNT (BEAKER) (test 158 K/CU MM 150-450 code = 756) MEAN PLATELET VOLUME (BEAKER) 9.2 fL 9.4-12.4 L (test code = 754) NUCLEATED RED BLOOD CELLS 0 /100 WBC 0-0 (BEAKER) (test code = 413) NEUTROPHILS RELATIVE PERCENT 73 % (BEAKER) (test code = 429) LYMPHOCYTES RELATIVE PERCENT 14 % (BEAKER) (test code = 430) MONOCYTES RELATIVE PERCENT 9 % (BEAKER) (test code = 431) EOSINOPHILS RELATIVE PERCENT 4 % (BEAKER) (test code = 432) BASOPHILS RELATIVE PERCENT 1 % (BEAKER) (test code = 437) NEUTROPHILS ABSOLUTE COUNT 5.77 K/ L 1.78-5.38 H (BEAKER) (test code = 670) LYMPHOCYTES ABSOLUTE COUNT 1.09 K/ L 1.32-3.57 L (BEAKER) (test code = 414) MONOCYTES ABSOLUTE COUNT (BEAKER) 0.68 K/ L 0.30-0.82 (test code = 415) EOSINOPHILS ABSOLUTE COUNT 0.29 K/ L 0.04-0.54 (BEAKER) (test code = 416) BASOPHILS ABSOLUTE COUNT (BEAKER) 0.07 K/ L 0.01-0.08 (test code = 417) IMMATURE GRANULOCYTES-RELATIVE 0 % 0-1 PERCENT (BEAKER) (test code = 2801) BASIC METABOLIC [id number] 08:24:48 Test Item Value Reference Range Interpretation Comments SODIUM (BEAKER) 135 meq/L 136-145 L (test code = 381) POTASSIUM (BEAKER) 4.5 meq/L 3.5-5.1 (test code = 379) CHLORIDE (BEAKER) 102 meq/L 98-107 (test code = 382) CO2 (BEAKER) (test 23 meq/L 22-29 code = 355) BLOOD UREA NITROGEN 54 mg/dL 7-21 H (BEAKER) (test code = 354) CREATININE (BEAKER) 6.48 mg/dL 0.57-1.25 H (test code = 358) GLUCOSE RANDOM 81 mg/dL 70-105 (BEAKER) (test code = 652) CALCIUM (BEAKER) 8.8 mg/dL 8.4-10.2 (test code = 697) EGFR (BEAKER) (test 11 mL/min/1.73 ESTIMA ARI GFR IS code = 1092) sq m NOT ACCURATE CREATININE CLEARANCE IN PREDICTING GLOMERULAR FILTRATION RATE . ESTIMATED GFR I S NOT APPLICABLE FOR DIALYSIS PATIEN TS. Stock Driver ID - PIAYA LPROTHROMBIN TIME/[id number] 07:16:29 Test Item Value Reference Range Interpretation Comments PROTIME (BEAKER) 28.4 seconds 11.9-14.2 H (test code = 759) INR (BEAKER) (test 2.70 See_Comment [Automat ed message] code = 370) The system Umeng generated this result transmitted ref erence range: <=5.90. The reference range was not used to int erpret this result as normal/abnormal . RECOMMENDED COUMADIN/WARFARIN INR THERAPY RANGESSTANDARD DOSE: 2.0 - 3.0 Includes: PROPHYLAXIS forvenous thrombosis, systemic embolization; TREATMENT for venous thrombosis and/or pulmonary embolus.HIGH RISK: Target INR is 2.5-3.5 for patients with mechanical heart valves.CBC W/PLT COUNT & AUTO DIFFERENTIAL 2021-03-02 07:11:58 Test Item Value Reference Range Interpretation Comments WHITE BLOOD CELL COUNT (BEAKER) 7.5 K/ L 3.5-10.5 (test code = 775) RED BLOOD CELL COUNT (BEAKER) 2.79 M/ L 4.63-6.08 L (test code = 761) HEMOGLOBIN (BEAKER) (test code = 8.1 GM/DL 13.7-17.5 L 410) HEMATOCRIT (BEAKER) (test code = 26.0 % 40.1-51.0 L 411) MEAN CORPUSCULAR VOLUME (BEAKER) 93.2 fL 79.0-92.2 H (test code = 753) MEAN CORPUSCULAR HEMOGLOBIN 29.0 pg 25.7-32.2 (BEAKER) (test code = 751) MEAN CORPUSCULAR HEMOGLOBIN CONC 31.2 GM/DL 32.3-36.5 L (BEAKER) (test code = 752) RED CELL DISTRIBUTION WIDTH 15.7 % 11.6-14.4 H (BEAKER) (test code = 412) PLATELET COUNT (BEAKER) (test 168 K/CU MM 150-450 code = 756) MEAN PLATELET VOLUME (BEAKER) 8.5 fL 9.4-12.4 L (test code = 754) NUCLEATED RED BLOOD CELLS 0 /100 WBC 0-0 (BEAKER) (test code = 413) NEUTROPHILS RELATIVE PERCENT 72 % (BEAKER) (test code = 429) LYMPHOCYTES RELATIVE PERCENT 15 % (BEAKER) (test code = 430) MONOCYTES RELATIVE PERCENT 8 % (BEAKER) (test code = 431) EOSINOPHILS RELATIVE PERCENT 4 % (BEAKER) (test code = 432) BASOPHILS RELATIVE PERCENT 1 % (BEAKER) (test code = 437) NEUTROPHILS ABSOLUTE COUNT 5.33 K/ L 1.78-5.38 (BEAKER) (test code = 670) LYMPHOCYTES ABSOLUTE COUNT 1.14 K/ L 1.32-3.57 L (BEAKER) (test code = 414) MONOCYTES ABSOLUTE COUNT (BEAKER) 0.58 K/ L 0.30-0.82 (test code = 415) EOSINOPHILS ABSOLUTE COUNT 0.30 K/ L 0.04-0.54 (BEAKER) (test code = 416) BASOPHILS ABSOLUTE COUNT (BEAKER) 0.07 K/ L 0.01-0.08 (test code = 417) IMMATURE GRANULOCYTES-RELATIVE 0 % 0-1 PERCENT (BEAKER) (test code = 2801) SARS-COV2/RT-PCR ([facility])2021-03-01 11:26:13 Test Item Value Reference Range Interpretation Comments SARS-COV2/RT-PCR (test Negative Not Detected, Negative, code = 2418255) See external report for linked test SARS-COV-2 PERFORMING LAB [facility] (test code = 5697444) Negative result for this test determines that SARS-CoV-2 RNA was not present in the specimen above the Limit of Detection (LOD). However, Negative results do not preclude SARS-CoV-2 infection and should not be used as the sole basis for treatment or patient management decisions. Negative results mustbe combined with clinical observations, patient history, and epidemiological information. A false negative result may occur if a specimen is improperly collected, transported or handled. A false negative result should be considered if patient's recent exposures or clinical presentation indicate that COVID-19 (SARS-CoV-2) is likely and diagnostic tests for other causes of illness are negative. Re-testing should be considered in cases of suspected false negatives.The limit of detection for this assay is 800 copies/mL.This SARS CoV-2 test is a real-time RT-PCR test intended for the qualitative detection of nucleic acid from SARS-CoV-2 in a nasopharyngeal swab specimen collected from individuals susp ected of COVID-19 by their healthcare provider.This test has not been Food and Drug Administration (FDA) cleared or approved. This is a modified version of an approved Emergency Use Authorization (EUA) and is in the process of review by the FDA. Once authorized by the FDA, the issued EUA will be effective until the declaration that circumstances exist justifying the authorization of the emergency use of in vitro diagnostic tests for detection and/or diagnosis of COVID-19 is terminated under Section 564(b)(2) of the Act or the EUA is revoked under Section 564(g) of the Act.Fact Sheet for Healthcare Providers:https://www.[employer]/sites/default/files/product/documents/Fact_Shee k_GF_Dbrcrfmjk_Mokc_WEPE-VoS-0.pdfFact Sheet for Healthcare Patients:https://www.[employer]/sites/default/files/product/ documents/Ckua_Fhuhq_Kaosvubz_Rsbf_SWXW-VqW-0.pdfPerforming Laboratory:[facility].[place], [place] [address]GYVASROFSGH TIME/INR 2021-03-01 04:16:38 Test Item Value Reference Range Interpretation Comments PROTIME (BEAKER) 25.5 seconds 11.9-14.2 H (test code = 759) INR (BEAKER) (test 2.35 See_Comment [Automat ed message] code = 370) The system Umeng generated this result transmitted ref erence range: <=5.90. The reference range was not used to int erpret this result as normal/abnormal . RECOMMENDED COUMADIN/WARFARIN INR THERAPY RANGESSTANDARD DOSE: 2.0 - 3.0 Includes: PROPHYLAXIS forvenous thrombosis, systemic embolization; TREATMENT for venous thrombosis and/or pulmonary embolus.HIGH RISK: Target INR is 2.5-3.5 for patients with mechanical heart valves.CBC W/PLT COUNT & AUTO DIFFERENTIAL 2021-03-01 04:10:26 Test Item Value Reference Range Interpretation Comments WHITE BLOOD CELL COUNT (BEAKER) 7.5 K/ L 3.5-10.5 (test code = 775) RED BLOOD CELL COUNT (BEAKER) 2.53 M/ L 4.63-6.08 L (test code = 761) HEMOGLOBIN (BEAKER) (test code = 7.3 GM/DL 13.7-17.5 L 410) HEMATOCRIT (BEAKER) (test code = 22.7 % 40.1-51.0 L 411) MEAN CORPUSCULAR VOLUME (BEAKER) 89.7 fL 79.0-92.2 (test code = 753) MEAN CORPUSCULAR HEMOGLOBIN 28.9 pg 25.7-32.2 (BEAKER) (test code = 751) MEAN CORPUSCULAR HEMOGLOBIN CONC 32.2 GM/DL 32.3-36.5 L (BEAKER) (test code = 752) RED CELL DISTRIBUTION WIDTH 16.0 % 11.6-14.4 H (BEAKER) (test code = 412) PLATELET COUNT (BEAKER) (test 166 K/CU MM 150-450 code = 756) MEAN PLATELET VOLUME (BEAKER) 8.7 fL 9.4-12.4 L (test code = 754) NUCLEATED RED BLOOD CELLS 0 /100 WBC 0-0 (BEAKER) (test code = 413) NEUTROPHILS RELATIVE PERCENT 69 % (BEAKER) (test code = 429) LYMPHOCYTES RELATIVE PERCENT 15 % (BEAKER) (test code = 430) MONOCYTES RELATIVE PERCENT 10 % (BEAKER) (test code = 431) EOSINOPHILS RELATIVE PERCENT 4 % (BEAKER) (test code = 432) BASOPHILS RELATIVE PERCENT 1 % (BEAKER) (test code = 437) NEUTROPHILS ABSOLUTE COUNT 5.21 K/ L 1.78-5.38 (BEAKER) (test code = 670) LYMPHOCYTES ABSOLUTE COUNT 1.15 K/ L 1.32-3.57 L (BEAKER) (test code = 414) MONOCYTES ABSOLUTE COUNT (BEAKER) 0.75 K/ L 0.30-0.82 (test code = 415) EOSINOPHILS ABSOLUTE COUNT 0.33 K/ L 0.04-0.54 (BEAKER) (test code = 416) BASOPHILS ABSOLUTE COUNT (BEAKER) 0.06 K/ L 0.01-0.08 (test code = 417) IMMATURE GRANULOCYTES-RELATIVE 1 % 0-1 PERCENT (BEAKER) (test code = 2801) PROTHROMBIN TIME/[id number] 04:21:23 Test Item Value Reference Range Interpretation Comments PROTIME (BEAKER) 23.9 seconds 11.9-14.2 H (test code = 759) INR (BEAKER) (test 2.17 See_Comment [Automat ed message] code = 370) The system [employer] generated this result transmitted ref erence range: <=5.90. The reference range was not used to int erpret this result as normal/abnormal . RECOMMENDED COUMADIN/WARFARIN INR THERAPY RANGESSTANDARD DOSE: 2.0 - 3.0 Includes: PROPHYLAXIS forvenous thrombosis, systemic embolization; TREATMENT for venous thrombosis and/or pulmonary embolus.HIGH RISK: Target INR is 2.5-3.5 for patients with mechanical heart valves.CBC W/PLT COUNT & AUTO DIFFERENTIAL 2021-02-28 04:09:33 Test Item Value Reference Range Interpretation Comments WHITE BLOOD CELL COUNT (BEAKER) 7.6 K/ L 3.5-10.5 (test code = 775) RED BLOOD CELL COUNT (BEAKER) 2.33 M/ L 4.63-6.08 L (test code = 761) HEMOGLOBIN (BEAKER) (test code = 6.8 GM/DL 13.7-17.5 L 410) HEMATOCRIT (BEAKER) (test code = 21.1 % 40.1-51.0 L 411) MEAN CORPUSCULAR VOLUME (BEAKER) 90.6 fL 79.0-92.2 (test code = 753) MEAN CORPUSCULAR HEMOGLOBIN 29.2 pg 25.7-32.2 (BEAKER) (test code = 751) MEAN CORPUSCULAR HEMOGLOBIN CONC 32.2 GM/DL 32.3-36.5 L (BEAKER) (test code = 752) RED CELL DISTRIBUTION WIDTH 16.3 % 11.6-14.4 H (BEAKER) (test code = 412) PLATELET COUNT (BEAKER) (test 146 K/CU MM 150-450 L code = 756) MEAN PLATELET VOLUME (BEAKER) 8.4 fL 9.4-12.4 L (test code = 754) NUCLEATED RED BLOOD CELLS 0 /100 WBC 0-0 (BEAKER) (test code = 413) NEUTROPHILS RELATIVE PERCENT 70 % (BEAKER) (test code = 429) LYMPHOCYTES RELATIVE PERCENT 15 % (BEAKER) (test code = 430) MONOCYTES RELATIVE PERCENT 9 % (BEAKER) (test code = 431) EOSINOPHILS RELATIVE PERCENT 5 % (BEAKER) (test code = 432) BASOPHILS RELATIVE PERCENT 1 % (BEAKER) (test code = 437) NEUTROPHILS ABSOLUTE COUNT 5.28 K/ L 1.78-5.38 (BEAKER) (test code = 670) LYMPHOCYTES ABSOLUTE COUNT 1.15 K/ L 1.32-3.57 L (BEAKER) (test code = 414) MONOCYTES ABSOLUTE COUNT (BEAKER) 0.66 K/ L 0.30-0.82 (test code = 415) EOSINOPHILS ABSOLUTE COUNT 0.36 K/ L 0.04-0.54 (BEAKER) (test code = 416) BASOPHILS ABSOLUTE COUNT (BEAKER) 0.06 K/ L 0.01-0.08 (test code = 417) IMMATURE GRANULOCYTES-RELATIVE 1 % 0-1 PERCENT (BEAKER) (test code = 2801) BASIC METABOLIC [id number] 05:21:01 Test Item Value Reference Range Interpretation Comments SODIUM (BEAKER) 137 meq/L 136-145 (test code = 381) POTASSIUM (BEAKER) 4.3 meq/L 3.5-5.1 Specimen slightly (test code = 379) hemolyzed CHLORIDE (BEAKER) 103 meq/L 98-107 (test code = 382) CO2 (BEAKER) (test 25 meq/L 22-29 code = 355) BLOOD UREA NITROGEN 41 mg/dL 7-21 H (BEAKER) (test code = 354) CREATININE (BEAKER) 5.14 mg/dL 0.57-1.25 H Specimen slightly (test code = 358) hemolyzed GLUCOSE RANDOM 85 mg/dL 70-105 (BEAKER) (test code = 652) CALCIUM (BEAKER) 8.4 mg/dL 8.4-10.2 (test code = 697) EGFR (BEAKER) (test 15 mL/min/1.73 ESTIMA ARI GFR IS code = 1092) sq m NOT ACCURATE CREATININE CLEARANCE IN PREDICTING GLOMERULAR FILTRATION RATE . ESTIMATED GFR I S NOT APPLICABLE FOR DIALYSIS PATIEN TS. Stock Driver ID - KT [facility] (HEMOGRAM ONLY)2021-02-27 05:14:08 Test Item Value Reference Range Interpretation Comments WHITE BLOOD CELL COUNT (BEAKER) 10.3 K/ L 3.5-10.5 (test code = 775) RED BLOOD CELL COUNT (BEAKER) 2.36 M/ L 4.63-6.08 L (test code = 761) HEMOGLOBIN (BEAKER) (test code = 7.0 GM/DL 13.7-17.5 L 410) HEMATOCRIT (BEAKER) (test code = 21.3 % 40.1-51.0 L 411) MEAN CORPUSCULAR VOLUME (BEAKER) 90.3 fL 79.0-92.2 (test code = 753) MEAN CORPUSCULAR HEMOGLOBIN 29.7 pg 25.7-32.2 (BEAKER) (test code = 751) MEAN CORPUSCULAR HEMOGLOBIN CONC 32.9 GM/DL 32.3-36.5 (BEAKER) (test code = 752) RED CELL DISTRIBUTION WIDTH 16.6 % 11.6-14.4 H (BEAKER) (test code = 412) PLATELET COUNT (BEAKER) (test 167 K/CU MM 150-450 code = 756) MEAN PLATELET VOLUME (BEAKER) 9.3 fL 9.4-12.4 L (test code = 754) NUCLEATED RED BLOOD CELLS 0 /100 WBC 0-0 (BEAKER) (test code = 413) B-TYPE NATRIURETIC FACTOR (BNP)2021-02-27 05:13:25 Test Item Value Reference Range Interpretation Comments B-TYPE NATRIURETIC PEPTIDE 4485 pg/mL 0-100 H (BEAKER) (test code = 700) Stock Driver ID - ADMINPROTHROMBIN [id number] 04:56:59 Test Item Value Reference Range Interpretation Comments PROTIME (BEAKER) 22.7 seconds 11.9-14.2 H (test code = 759) INR (BEAKER) (test 2.03 See_Comment [Automat ed message] code = 370) The system Umeng generated this result transmitted ref erence range: <=5.90. The reference range was not used to int erpret this result as normal/abnormal . RECOMMENDED COUMADIN/WARFARIN INR THERAPY RANGESSTANDARD DOSE: 2.0 - 3.0 Includes: PROPHYLAXIS forvenous thrombosis, systemic embolization; TREATMENT for venous thrombosis and/or pulmonary embolus.HIGH RISK: Target INR is 2.5-3.5 for patients with mechanical heart valves.PROTHROMBIN [id number] 15:31:42 Test Item Value Reference Range Interpretation Comments PROTIME (BEAKER) 23.5 seconds 11.9-14.2 H (test code = 759) INR (BEAKER) (test 2.12 See_Comment [Automat ed message] code = 370) The system Umeng generated this result transmitted ref erence range: <=5.90. The reference range was not used to int erpret this result as normal/abnormal . RECOMMENDED COUMADIN/WARFARIN INR THERAPY RANGESSTANDARD DOSE: 2.0 - 3.0 Includes: PROPHYLAXIS forvenous thrombosis, systemic embolization; TREATMENT for venous thrombosis and/or pulmonary embolus.HIGH RISK: Target INR is 2.5-3.5 for patients with mechanical heart valves.BLOOD GAS, [id number] 05:16:22 Test Item Value Reference Range Interpretation Comments PH ARTERIAL (BEAKER) (test code = 7.47 7.35-7.45 H 383) PCO2 ARTERIAL (BEAKER) (test code 35 mm Hg 35-45 = 384) PO2 ARTERIAL (BEAKER) (test code = 203 mm Hg 80-90 H 385) O2 SATURATION ARTERIAL (BEAKER) 99.5 % 96.0-97.0 H (test code = 386) HCO3 ARTERIAL (BEAKER) (test code 25 mmol/L 21-29 = 388) BASE EXCESS ARTERIAL (BEAKER) 1.3 mmol/L -2.0-3.0 (test code = 387) PATIENT TEMPERATURE (BEAKER) (test 37.0 code = 1818) FIO2 (BEAKER) (test code = 1819) 50.0 COMPREHENSIVE METABOLIC [id number] 23:42:13 Test Item Value Reference Range Interpretation Comments TOTAL PROTEIN 7.1 gm/dL 6.0-8.3 Specimen sligh tly (BEAKER) (test code = hemoly zed 770) ALBUMIN (BEAKER) 2.3 g/dL 3.5-5.0 L Specimen sl ightly (test code = 1145) hemolyzed ALKALINE PHOSPHATASE 115 U/L 40-150 (BEAKER) (test code = 346) BILIRUBIN TOTAL 0.4 mg/dL 0.2-1.2 Specimen sli ghtly (BEAKER) (test code = hemoly zed 377) SODIUM (BEAKER) (test 134 meq/L 136-145 L code = 381) POTASSIUM (BEAKER) 4.7 meq/L 3.5-5.1 Specimen slightly (test code = 379) hemolyzed CHLORIDE (BEAKER) 100 meq/L 98-107 (test code = 382) CO2 (BEAKER) (test 23 meq/L 22-29 code = 355) BLOOD UREA NITROGEN 55 mg/dL 7-21 H (BEAKER) (test code = 354) CREATININE (BEAKER) 6.26 mg/dL 0.57-1.25 H Specimen slightly (test code = 358) hemolyzed GLUCOSE RANDOM 96 mg/dL 70-105 (BEAKER) (test code = 652) CALCIUM (BEAKER) 8.9 mg/dL 8.4-10.2 (test code = 697) AST (SGOT) (BEAKER) 27 U/L 5-34 Specimen slightly (test code = 353) hemolyzed ALT (SGPT) (BEAKER) 14 U/L 6-55 Specimen slightly (test code = 347) hemolyzed EGFR (BEAKER) (test 12 mL/min/1.73 ESTIMA ARI GFR IS code = 1092) sq m NOT ACCURATE CREATININE CLEARANCE IN PREDICTING GLOMERULAR FILTRATION RATE . ESTIMATED GFR I S NOT APPLICABLE FOR DIALYSIS PATIEN TS. Stock Driver ID - DBHIGH SENSITIVITY TROPONIN [id number] 23:38:42 Test Item Value Reference Range Interpretation Comments HIGH SENSITIVITY 128 pg/ml See_Comment H [Automated message] TROPONIN I (test code The stem which = [id number]) generated this result transmitted ref erence range: <=35. Th e reference range was not used to int erpret this result as normal/abnormal . Stock Driver ID - DBThe [facility] STAT High Sensitivity Troponin-I results should be used in conjunctionwith other diagnostic information such as ECG, clinical observations and information, and patient symptoms to aid in the diagnosis of [place].LACTIC ACID, [id number] 23:28:44 Test Item Value Reference Range Interpretation Comments LACTATE BLOOD VENOUS 0.82 mmol/L 0.50-2.20 Specime n slightly (2) (BEAKER) (test hemolyzed code = 2872) Stock Driver ID - DBCBC W/PLT COUNT & AUTO [id number] 23:13:06 Test Item Value Reference Range Interpretation Comments WHITE BLOOD CELL COUNT (BEAKER) 11.3 K/ L 3.5-10.5 H (test code = 775) RED BLOOD CELL COUNT (BEAKER) 2.75 M/ L 4.63-6.08 L (test code = 761) HEMOGLOBIN (BEAKER) (test code = 8.1 GM/DL 13.7-17.5 L 410) HEMATOCRIT (BEAKER) (test code = 25.1 % 40.1-51.0 L 411) MEAN CORPUSCULAR VOLUME (BEAKER) 91.3 fL 79.0-92.2 (test code = 753) MEAN CORPUSCULAR HEMOGLOBIN 29.5 pg 25.7-32.2 (BEAKER) (test code = 751) MEAN CORPUSCULAR HEMOGLOBIN CONC 32.3 GM/DL 32.3-36.5 (BEAKER) (test code = 752) RED CELL DISTRIBUTION WIDTH 16.8 % 11.6-14.4 H (BEAKER) (test code = 412) PLATELET COUNT (BEAKER) (test 191 K/CU MM 150-450 code = 756) MEAN PLATELET VOLUME (BEAKER) 8.9 fL 9.4-12.4 L (test code = 754) NUCLEATED RED BLOOD CELLS 0 /100 WBC 0-0 (BEAKER) (test code = 413) NEUTROPHILS RELATIVE PERCENT 82 % (BEAKER) (test code = 429) LYMPHOCYTES RELATIVE PERCENT 7 % (BEAKER) (test code = 430) MONOCYTES RELATIVE PERCENT 8 % (BEAKER) (test code = 431) EOSINOPHILS RELATIVE PERCENT 2 % (BEAKER) (test code = 432) BASOPHILS RELATIVE PERCENT 1 % (BEAKER) (test code = 437) NEUTROPHILS ABSOLUTE COUNT 9.25 K/ L 1.78-5.38 H (BEAKER) (test code = 670) LYMPHOCYTES ABSOLUTE COUNT 0.83 K/ L 1.32-3.57 L (BEAKER) (test code = 414) MONOCYTES ABSOLUTE COUNT (BEAKER) 0.85 K/ L 0.30-0.82 H (test code = 415) EOSINOPHILS ABSOLUTE COUNT 0.22 K/ L 0.04-0.54 (BEAKER) (test code = 416) BASOPHILS ABSOLUTE COUNT (BEAKER) 0.08 K/ L 0.01-0.08 (test code = 417) IMMATURE GRANULOCYTES-RELATIVE 0 % 0-1 PERCENT (BEAKER) (test code = 2801) RAD, CHEST, 1 VIEW, NON [id number] 23:11:00Reason for exam:- >hypoxiaShould this be performed at the bedside?->Yes [facility] : 1975 Sex: MFINAL REPORT EXAM: Chest one view COMPARISON: February 19, 2021 CLIN ICAL HISTORY: Hypoxia FINDINGS: Interval Development of bilateral airway opacities are noted which may represent edema versus pneumonitis. The right internal jugular tunneled dialysis catheter appears unchanged in position. There is persistent severe cardiomegaly. There is no evidence of pneumothorax. Bilateral hemidiaphragms are not well seen which may represent effusion. The regional osseous structures are unremarkable. Signed: Kelsie Briones MDRthe institute of living Verified Date/Time: 02/25/2021 23:11:55 [id number] 22:36:53 Test Item Value Reference Range Interpretation Comments POC-GLUCOSE (BEAKER) 96 mg/dL 70-110 : TESTE D AT [facility] 67[address] (test code = 1855) [place], [address]: Stock Driver/Techni won ID = [id number] for JESUS MANUEL SAENZ [id number] 22:36:52 Test Item Value Reference Range Interpretation Comments POC-HEMATOCRIT 25 % 40-50 L : Stock Driver/Te chnician ID = (BEAKER) (test code = 409582 for JESUS MANUEL ZAYAS 1857) [id number] 22:36:51 Test Item Value Reference Range Interpretation Comments POC-HEMOGLOBIN 8.5 g/dL 13.0-16.8 L : TESTED AT [facility] 67[address] (BEAKER) (test code = NORM [place] [facility], 185) [id number]: Stock Driver/Techni won ID = [id number] for RUMB AOA, JESUS MANUEL [id number] 22:36:50 Test Item Value Reference Range Interpretation Comments POC-SODIUM (BEAKER) 135 meq/L 135-148 : TESTED AT [facility] [address] (test code = 1542) [place] [facility], [address]: Stock Driver/Techni won ID = [id number] for RUMB AOA, JESUS MANUEL [id number] 22:36:50 Test Item Value Reference Range Interpretation Comments POC-POTASSIUM 4.2 meq/L 3.6-5.5 : TESTED AT [facility] 67 (BEAKER) (test code [facility], = 1540) [id number]: Stock Driver/Techni won ID = [id number] for RUMB AOA, JESUS MANUEL POCT-BLOOD GASES, [id number] 22:36:49 Test Item Value Reference Range Interpretation Comments TEMP, CELSIUS-POC 97.3 (BEAKER) (test code = 1834) FIO2-POC (BEAKER) 50 (test code = 1835) PH, ARTERIAL-POC 7.423 7.350-7.450 (BEAKER) (test code = 1836) PCO2, ARTERIAL-POC 39.1 mm Hg 35.0-45.0 If pO2 is >180, pCO2 may (BEAKER) (test code be posit ively biased = 1837) PO2, ARTERIAL-POC 63.0 mm Hg 80.0-90.0 L (BEAKER) (test code = 1838) SO2, ARTERIAL-POC 93.0 % 96.0-97.0 L (BEAKER) (test code = 1839) HCO3, ARTERIAL-POC 25.7 meq/L 21.0-29.0 (BEAKER) (test code = 1840) BASE EXCESS, 1.0 meq/L -2.0-3.0 : TESTED AT [facility] 6720 ARTERIAL-POC [facility], (BEAKER) (test code [address]: = 1841) Stock Driver/Techni won ID = [id number] for JESUS MANUEL SAENZ CBC W/PLT COUNT & AUTO [id number] 07:09:54 Test Item Value Reference Range Interpretation Comments WHITE BLOOD CELL COUNT (BEAKER) 8.6 K/ L 3.5-10.5 (test code = 775) RED BLOOD CELL COUNT (BEAKER) 2.67 M/ L 4.63-6.08 L (test code = 761) HEMOGLOBIN (BEAKER) (test code = 8.0 GM/DL 13.7-17.5 L 410) HEMATOCRIT (BEAKER) (test code = 24.4 % 40.1-51.0 L 411) MEAN CORPUSCULAR VOLUME (BEAKER) 91.4 fL 79.0-92.2 (test code = 753) MEAN CORPUSCULAR HEMOGLOBIN 30.0 pg 25.7-32.2 (BEAKER) (test code = 751) MEAN CORPUSCULAR HEMOGLOBIN CONC 32.8 GM/DL 32.3-36.5 (BEAKER) (test code = 752) RED CELL DISTRIBUTION WIDTH 16.9 % 11.6-14.4 H (BEAKER) (test code = 412) PLATELET COUNT (BEAKER) (test 169 K/CU MM 150-450 code = 756) MEAN PLATELET VOLUME (BEAKER) 9.2 fL 9.4-12.4 L (test code = 754) NUCLEATED RED BLOOD CELLS 0 /100 WBC 0-0 (BEAKER) (test code = 413) NEUTROPHILS RELATIVE PERCENT 74 % (BEAKER) (test code = 429) LYMPHOCYTES RELATIVE PERCENT 13 % (BEAKER) (test code = 430) MONOCYTES RELATIVE PERCENT 9 % (BEAKER) (test code = 431) EOSINOPHILS RELATIVE PERCENT 3 % (BEAKER) (test code = 432) BASOPHILS RELATIVE PERCENT 1 % (BEAKER) (test code = 437) NEUTROPHILS ABSOLUTE COUNT 6.41 K/ L 1.78-5.38 H (BEAKER) (test code = 670) LYMPHOCYTES ABSOLUTE COUNT 1.09 K/ L 1.32-3.57 L (BEAKER) (test code = 414) MONOCYTES ABSOLUTE COUNT (BEAKER) 0.81 K/ L 0.30-0.82 (test code = 415) EOSINOPHILS ABSOLUTE COUNT 0.22 K/ L 0.04-0.54 (BEAKER) (test code = 416) BASOPHILS ABSOLUTE COUNT (BEAKER) 0.07 K/ L 0.01-0.08 (test code = 417) IMMATURE GRANULOCYTES-RELATIVE 1 % 0-1 PERCENT (BEAKER) (test code = 2801) BASIC METABOLIC [id number] 06:39:44 Test Item Value Reference Range Interpretation Comments SODIUM (BEAKER) 137 meq/L 136-145 (test code = 381) POTASSIUM (BEAKER) 4.5 meq/L 3.5-5.1 (test code = 379) CHLORIDE (BEAKER) 103 meq/L 98-107 (test code = 382) CO2 (BEAKER) (test 25 meq/L 22-29 code = 355) BLOOD UREA NITROGEN 45 mg/dL 7-21 H (BEAKER) (test code = 354) CREATININE (BEAKER) 5.18 mg/dL 0.57-1.25 H (test code = 358) GLUCOSE RANDOM 84 mg/dL 70-105 (BEAKER) (test code = 652) CALCIUM (BEAKER) 8.5 mg/dL 8.4-10.2 (test code = 697) EGFR (BEAKER) (test 15 mL/min/1.73 ESTIMA ARI GFR IS code = 1092) sq m NOT ACCURATE CREATININE CLEARANCE IN PREDICTING GLOMERULAR FILTRATION RATE . ESTIMATED GFR I S NOT APPLICABLE FOR DIALYSIS PATIEN TS. Stock Driver ID - KT GCALCIUM, [id number] 06:23:23 Test Item Value Reference Range Interpretation Comments CALCIUM IONIZED (BEAKER) (test 1.14 mmol/L 1.12-1.27 code = 698) PH, BLOOD (BEAKER) (test code = 7.40 1810) [id number] 06:05:48 Test Item Value Reference Range Interpretation Comments PHOSPHORUS (BEAKER) (test code = 4.7 mg/dL 2.3-4.7 604) Stock Driver ID - KT [id number] 06:05:46 Test Item Value Reference Range Interpretation Comments MAGNESIUM (BEAKER) (test code = 2.1 mg/dL 1.6-2.6 627) Stock Driver ID - KT GPROTHROMBIN [id number] 05:51:22 Test Item Value Reference Range Interpretation Comments PROTIME (BEAKER) 21.2 seconds 11.9-14.2 H (test code = 759) INR (BEAKER) (test 1.86 See_Comment [Automat ed message] code = 370) The system Umeng generated this result transmitted ref erence range: <=5.90. The reference range was not used to int erpret this result as normal/abnormal . RECOMMENDED COUMADIN/WARFARIN INR THERAPY RANGESSTANDARD DOSE: 2.0 - 3.0 Includes: PROPHYLAXIS forvenous thrombosis, systemic embolization; TREATMENT for venous thrombosis and/or pulmonary embolus.HIGH RISK: Target INR is 2.5-3.5 for patients with mechanical heart valves.BASIC METABOLIC [id number] 04:44:34 Test Item Value Reference Range Interpretation Comments SODIUM (BEAKER) 137 meq/L 136-145 (test code = 381) POTASSIUM (BEAKER) 4.8 meq/L 3.5-5.1 (test code = 379) CHLORIDE (BEAKER) 103 meq/L 98-107 (test code = 382) CO2 (BEAKER) (test 24 meq/L 22-29 code = 355) BLOOD UREA NITROGEN 60 mg/dL 7-21 H (BEAKER) (test code = 354) CREATININE (BEAKER) 6.68 mg/dL 0.57-1.25 H (test code = 358) GLUCOSE RANDOM 106 mg/dL 70-105 H (BEAKER) (test code = 652) CALCIUM (BEAKER) 8.6 mg/dL 8.4-10.2 (test code = 697) EGFR (BEAKER) (test 11 mL/min/1.73 ESTIMA ARI GFR IS code = 1092) sq m NOT ACCURATE CREATININE CLEARANCE IN PREDICTING GLOMERULAR FILTRATION RATE . ESTIMATED GFR I S NOT APPLICABLE FOR DIALYSIS PATIEN TS. Stock Driver ID - KT [id number] 04:43:05 Test Item Value Reference Range Interpretation Comments PHOSPHORUS (BEAKER) (test code = 6.2 mg/dL 2.3-4.7 H 604) Stock Driver ID - KT [id number] 04:43:03 Test Item Value Reference Range Interpretation Comments MAGNESIUM (BEAKER) (test code = 2.2 mg/dL 1.6-2.6 627) Stock Driver ID - KT GPROTHROMBIN [id number] 04:31:37 Test Item Value Reference Range Interpretation Comments PROTIME (BEAKER) 24.3 seconds 11.9-14.2 H (test code = 759) INR (BEAKER) (test 2.21 See_Comment [Automat ed message] code = 370) The system Umeng generated this result transmitted ref erence range: <=5.90. The reference range was not used to int erpret this result as normal/abnormal . RECOMMENDED COUMADIN/WARFARIN INR THERAPY RANGESSTANDARD DOSE: 2.0 - 3.0 Includes: PROPHYLAXIS forvenous thrombosis, systemic embolization; TREATMENT for venous thrombosis and/or pulmonary embolus.HIGH RISK: Target INR is 2.5-3.5 for patients with mechanical heart valves.CBC W/PLT COUNT & AUTO DIFFERENTIAL 2021-02-24 04:30:06 Test Item Value Reference Range Interpretation Comments WHITE BLOOD CELL COUNT (BEAKER) 7.7 K/ L 3.5-10.5 (test code = 775) RED BLOOD CELL COUNT (BEAKER) 2.33 M/ L 4.63-6.08 L (test code = 761) HEMOGLOBIN (BEAKER) (test code = 6.9 GM/DL 13.7-17.5 L 410) HEMATOCRIT (BEAKER) (test code = 21.6 % 40.1-51.0 L 411) MEAN CORPUSCULAR VOLUME (BEAKER) 92.7 fL 79.0-92.2 H (test code = 753) MEAN CORPUSCULAR HEMOGLOBIN 29.6 pg 25.7-32.2 (BEAKER) (test code = 751) MEAN CORPUSCULAR HEMOGLOBIN CONC 31.9 GM/DL 32.3-36.5 L (BEAKER) (test code = 752) RED CELL DISTRIBUTION WIDTH 16.4 % 11.6-14.4 H (BEAKER) (test code = 412) PLATELET COUNT (BEAKER) (test 167 K/CU MM 150-450 code = 756) MEAN PLATELET VOLUME (BEAKER) 8.8 fL 9.4-12.4 L (test code = 754) NUCLEATED RED BLOOD CELLS 0 /100 WBC 0-0 (BEAKER) (test code = 413) NEUTROPHILS RELATIVE PERCENT 74 % (BEAKER) (test code = 429) LYMPHOCYTES RELATIVE PERCENT 13 % (BEAKER) (test code = 430) MONOCYTES RELATIVE PERCENT 9 % (BEAKER) (test code = 431) EOSINOPHILS RELATIVE PERCENT 3 % (BEAKER) (test code = 432) BASOPHILS RELATIVE PERCENT 1 % (BEAKER) (test code = 437) NEUTROPHILS ABSOLUTE COUNT 5.72 K/ L 1.78-5.38 H (BEAKER) (test code = 670) LYMPHOCYTES ABSOLUTE COUNT 0.96 K/ L 1.32-3.57 L (BEAKER) (test code = 414) MONOCYTES ABSOLUTE COUNT (BEAKER) 0.72 K/ L 0.30-0.82 (test code = 415) EOSINOPHILS ABSOLUTE COUNT 0.21 K/ L 0.04-0.54 (BEAKER) (test code = 416) BASOPHILS ABSOLUTE COUNT (BEAKER) 0.06 K/ L 0.01-0.08 (test code = 417) IMMATURE GRANULOCYTES-RELATIVE 1 % 0-1 PERCENT (BEAKER) (test code = 2801) CALCIUM, [id number] 04:16:25 Test Item Value Reference Range Interpretation Comments CALCIUM IONIZED (BEAKER) (test 1.14 mmol/L 1.12-1.27 code = 698) PH, BLOOD (BEAKER) (test code = 7.43 1810) BASIC METABOLIC [id number] 06:34:09 Test Item Value Reference Range Interpretation Comments SODIUM (BEAKER) 137 meq/L 136-145 (test code = 381) POTASSIUM (BEAKER) 4.4 meq/L 3.5-5.1 (test code = 379) CHLORIDE (BEAKER) 104 meq/L 98-107 (test code = 382) CO2 (BEAKER) (test 25 meq/L 22-29 code = 355) BLOOD UREA NITROGEN 46 mg/dL 7-21 H (BEAKER) (test code = 354) CREATININE (BEAKER) 5.50 mg/dL 0.57-1.25 H (test code = 358) GLUCOSE RANDOM 88 mg/dL 70-105 (BEAKER) (test code = 652) CALCIUM (BEAKER) 8.4 mg/dL 8.4-10.2 (test code = 697) EGFR (BEAKER) (test 14 mL/min/1.73 ESTIMA ARI GFR IS code = 1092) sq m NOT ACCURATE CREATININE CLEARANCE IN PREDICTING GLOMERULAR FILTRATION RATE . ESTIMATED GFR I S NOT APPLICABLE FOR DIALYSIS PATIEN TS. Stock Driver ID - KT GCBC W/PLT COUNT & AUTO [id number] 06:34:05 Test Item Value Reference Range Interpretation Comments WHITE BLOOD CELL COUNT (BEAKER) 7.0 K/ L 3.5-10.5 (test code = 775) RED BLOOD CELL COUNT (BEAKER) 2.28 M/ L 4.63-6.08 L (test code = 761) HEMOGLOBIN (BEAKER) (test code = 6.7 GM/DL 13.7-17.5 L 410) HEMATOCRIT (BEAKER) (test code = 21.7 % 40.1-51.0 L 411) MEAN CORPUSCULAR VOLUME (BEAKER) 95.2 fL 79.0-92.2 H (test code = 753) MEAN CORPUSCULAR HEMOGLOBIN 29.4 pg 25.7-32.2 (BEAKER) (test code = 751) MEAN CORPUSCULAR HEMOGLOBIN CONC 30.9 GM/DL 32.3-36.5 L (BEAKER) (test code = 752) RED CELL DISTRIBUTION WIDTH 17.0 % 11.6-14.4 H (BEAKER) (test code = 412) PLATELET COUNT (BEAKER) (test 155 K/CU MM 150-450 code = 756) MEAN PLATELET VOLUME (BEAKER) 8.6 fL 9.4-12.4 L (test code = 754) NUCLEATED RED BLOOD CELLS 0 /100 WBC 0-0 (BEAKER) (test code = 413) NEUTROPHILS RELATIVE PERCENT 69 % (BEAKER) (test code = 429) LYMPHOCYTES RELATIVE PERCENT 16 % (BEAKER) (test code = 430) MONOCYTES RELATIVE PERCENT 10 % (BEAKER) (test code = 431) EOSINOPHILS RELATIVE PERCENT 4 % (BEAKER) (test code = 432) BASOPHILS RELATIVE PERCENT 1 % (BEAKER) (test code = 437) NEUTROPHILS ABSOLUTE COUNT 4.82 K/ L 1.78-5.38 (BEAKER) (test code = 670) LYMPHOCYTES ABSOLUTE COUNT 1.12 K/ L 1.32-3.57 L (BEAKER) (test code = 414) MONOCYTES ABSOLUTE COUNT (BEAKER) 0.69 K/ L 0.30-0.82 (test code = 415) EOSINOPHILS ABSOLUTE COUNT 0.26 K/ L 0.04-0.54 (BEAKER) (test code = 416) BASOPHILS ABSOLUTE COUNT (BEAKER) 0.06 K/ L 0.01-0.08 (test code = 417) IMMATURE GRANULOCYTES-RELATIVE 0 % 0-1 PERCENT (BEAKER) (test code = 2801) [id number] 06:25:36 Test Item Value Reference Range Interpretation Comments MAGNESIUM (BEAKER) (test code = 2.0 mg/dL 1.6-2.6 627) Stock Driver ID - KT [id number] 06:25:36 Test Item Value Reference Range Interpretation Comments PHOSPHORUS (BEAKER) (test code = 5.7 mg/dL 2.3-4.7 H 604) Stock Driver ID - KT GCALCIUM, [id number] 06:03:49 Test Item Value Reference Range Interpretation Comments CALCIUM IONIZED (BEAKER) (test 1.16 mmol/L 1.12-1.27 code = 698) PH, BLOOD (BEAKER) (test code = 7.37 1810) PROTHROMBIN [id number] 06:02:59 Test Item Value Reference Range Interpretation Comments PROTIME (BEAKER) 29.9 seconds 11.9-14.2 H (test code = 759) INR (BEAKER) (test 2.89 See_Comment [Automat ed message] code = 370) The system [employer] generated this result transmitted ref erence range: <=5.90. The reference range was not used to int erpret this result as normal/abnormal . RECOMMENDED COUMADIN/WARFARIN INR THERAPY RANGESSTANDARD DOSE: 2.0 - 3.0 Includes: PROPHYLAXIS forvenous thrombosis, systemic embolization; TREATMENT for venous thrombosis and/or pulmonary embolus.HIGH RISK: Target INR is 2.5-3.5 for patients with mechanical heart valves.HEPATITIS PANEL, [id number] 13:18:27 Test Item Value Reference Range Interpretation Comments HEPATITIS A IGM ANTIBODY (BEAKER) Nonreactive Nonreactive (test code = 498) HEPATITIS B CORE IGM ANTIBODY Nonreactive Nonreactive (BEAKER) (test code = 645) HEPATITIS C ANTIBODY (BEAKER) Nonreactive Nonreactive (test code = 367) HEPATITIS B SURFACE ANTIGEN (2) Nonreactive Nonreactive (BEAKER) (test code = 2585) Stock Driver ID - VALDEZ MBASIC METABOLIC [id number] 06:25:00 Test Item Value Reference Range Interpretation Comments SODIUM (BEAKER) 136 meq/L 136-145 (test code = 381) POTASSIUM (BEAKER) 5.3 meq/L 3.5-5.1 H Specimen slightly (test code = 379) hemolyzed CHLORIDE (BEAKER) 103 meq/L 98-107 (test code = 382) CO2 (BEAKER) (test 23 meq/L 22-29 code = 355) BLOOD UREA NITROGEN 63 mg/dL 7-21 H (BEAKER) (test code = 354) CREATININE (BEAKER) 6.64 mg/dL 0.57-1.25 H Specimen slightly (test code = 358) hemolyzed GLUCOSE RANDOM 77 mg/dL 70-105 (BEAKER) (test code = 652) CALCIUM (BEAKER) 8.9 mg/dL 8.4-10.2 (test code = 697) EGFR (BEAKER) (test 11 mL/min/1.73 ESTIMA ARI GFR IS code = 1092) sq m NOT ACCURATE CREATININE CLEARANCE IN PREDICTING GLOMERULAR FILTRATION RATE . ESTIMATED GFR I S NOT APPLICABLE FOR DIALYSIS PATIEN TS. Stock Driver ID - VALDEZ [id number] 06:02:13 Test Item Value Reference Range Interpretation Comments PHOSPHORUS (BEAKER) 7.5 mg/dL 2.3-4.7 H Specimen slightly (test code = 604) hemolyzed Stock Driver ID - VALDEZ [id number] 06:02:12 Test Item Value Reference Range Interpretation Comments MAGNESIUM (BEAKER) 2.2 mg/dL 1.6-2.6 Specimen slightly (test code = 627) hemolyzed Stock Driver ID - VALDEZ MCALCIUM, [id number] 05:35:58 Test Item Value Reference Range Interpretation Comments CALCIUM IONIZED (BEAKER) (test 1.12 mmol/L 1.12-1.27 code = 698) PH, BLOOD (BEAKER) (test code = 7.35 1810) CBC W/PLT COUNT & AUTO [id number] 05:09:10 Test Item Value Reference Range Interpretation Comments WHITE BLOOD CELL COUNT (BEAKER) 10.3 K/ L 3.5-10.5 (test code = 775) RED BLOOD CELL COUNT (BEAKER) 2.47 M/ L 4.63-6.08 L (test code = 761) HEMOGLOBIN (BEAKER) (test code = 7.3 GM/DL 13.7-17.5 L 410) HEMATOCRIT (BEAKER) (test code = 23.2 % 40.1-51.0 L 411) MEAN CORPUSCULAR VOLUME (BEAKER) 93.9 fL 79.0-92.2 H (test code = 753) MEAN CORPUSCULAR HEMOGLOBIN 29.6 pg 25.7-32.2 (BEAKER) (test code = 751) MEAN CORPUSCULAR HEMOGLOBIN CONC 31.5 GM/DL 32.3-36.5 L (BEAKER) (test code = 752) RED CELL DISTRIBUTION WIDTH 16.9 % 11.6-14.4 H (BEAKER) (test code = 412) PLATELET COUNT (BEAKER) (test 180 K/CU MM 150-450 code = 756) MEAN PLATELET VOLUME (BEAKER) 10.0 fL 9.4-12.4 (test code = 754) NUCLEATED RED BLOOD CELLS 0 /100 WBC 0-0 (BEAKER) (test code = 413) NEUTROPHILS RELATIVE PERCENT 77 % (BEAKER) (test code = 429) LYMPHOCYTES RELATIVE PERCENT 12 % (BEAKER) (test code = 430) MONOCYTES RELATIVE PERCENT 8 % (BEAKER) (test code = 431) EOSINOPHILS RELATIVE PERCENT 3 % (BEAKER) (test code = 432) BASOPHILS RELATIVE PERCENT 1 % (BEAKER) (test code = 437) NEUTROPHILS ABSOLUTE COUNT 7.87 K/ L 1.78-5.38 H (BEAKER) (test code = 670) LYMPHOCYTES ABSOLUTE COUNT 1.18 K/ L 1.32-3.57 L (BEAKER) (test code = 414) MONOCYTES ABSOLUTE COUNT (BEAKER) 0.78 K/ L 0.30-0.82 (test code = 415) EOSINOPHILS ABSOLUTE COUNT 0.30 K/ L 0.04-0.54 (BEAKER) (test code = 416) BASOPHILS ABSOLUTE COUNT (BEAKER) 0.08 K/ L 0.01-0.08 (test code = 417) IMMATURE GRANULOCYTES-RELATIVE 0 % 0-1 PERCENT (BEAKER) (test code = 2801) PROTHROMBIN [id number] 05:08:20 Test Item Value Reference Range Interpretation Comments PROTIME (BEAKER) 32.7 seconds 11.9-14.2 H (test code = 759) INR (BEAKER) (test 3.22 See_Comment [Automat ed message] code = 370) The system Umeng generated this result transmitted ref erence range: <=5.90. The reference range was not used to int erpret this result as normal/abnormal . RECOMMENDED COUMADIN/WARFARIN INR THERAPY RANGESSTANDARD DOSE: 2.0 - 3.0 Includes: PROPHYLAXIS forvenous thrombosis, systemic embolization; TREATMENT for venous thrombosis and/or pulmonary embolus.HIGH RISK: Target INR is 2.5-3.5 for patients with mechanical heart valves.PROTHROMBIN TIME/[id number] 05:04:40 Test Item Value Reference Range Interpretation Comments PROTIME (BEAKER) 32.1 seconds 11.9-14.2 H (test code = 759) INR (BEAKER) (test 3.15 See_Comment [Automat ed message] code = 370) The system Umeng generated this result transmitted ref erence range: <=5.90. The reference range was not used to int erpret this result as normal/abnormal . RECOMMENDED COUMADIN/WARFARIN INR THERAPY RANGESSTANDARD DOSE: 2.0 - 3.0 Includes: PROPHYLAXIS forvenous thrombosis, systemic embolization; TREATMENT for venous thrombosis and/or pulmonary embolus.HIGH RISK: Target INR is 2.5-3.5 for patients with mechanical heart valves.SARS-COV2/RT-PCR ([facility]) 2021-02-21 20:29:02 Test Item Value Reference Range Interpretation Comments SARS-COV2/RT-PCR (test code = Negative Negative [id number]) Negative result for this test determines that SARS-CoV-2 RNA was not present in the specimen above the Limit of Detection (LOD). However, Negative results do not preclude SARS-CoV-2 infection and should not be used as the sole basis for treatment or patient management decisions. Negative results must be combined with clinical observations, patient history, and epidemiological information. A false negative result may occur if a specimen is improperly collected, transported, or handled. A false negative result should be considered if patient's recent exposures or clinical presentation indicate that COVID-19 (SARS-CoV-2) is likely and diagnostic tests for other causes of illness are negative. Re-testing should be considered in cases of suspected false negatives.The limit of detection for this assay is 100 copies/mL.This SARS-CoV-2 test is a real-time RT_PCR test intended for the qualitative detection of nucleic acid from SARS-CoV-2 in a nasopharyngeal swab specimen collected from individuals suspected of COVID-19 by their healthcare provider.This test has not been Food and Drug Administration (FDA) cleared or approved. This is a modified version of an approved Emergency Use Authorization (EUA) and is in the process of review by the FDA. Once authorized by the FDA, the issued EUA will be e ffective until the declaration that circumstances exist justifying the authorization of the emergency use of in vitro diagnostic tests for detection and/or diagnosis of COVID-19 is terminated under Section 564(b)(2) of the Act or the EUA is revoked under Section 564(g) of the Act.Testing was performedusing the Mcdonald SARS-CoV-2 assay.Fact Sheet for Healthcare Providers:https://www.molecular.mcdonald/jermaine/RT SARS-CoV-2 HCP Fact Sheet 51- 161501.pdfFact Sheet for Healthcare Patients:[email or web address]://www.molecular.mcdonald/jermaine/RT SARS-CoV-2 Patient Fact Sheet EN 51-149975V6.pdfBASI METABOLIC [id number] 06:13:04 Test Item Value Reference Range Interpretation Comments SODIUM (BEAKER) 136 meq/L 136-145 (test code = 381) POTASSIUM (BEAKER) 4.6 meq/L 3.5-5.1 (test code = 379) CHLORIDE (BEAKER) 103 meq/L 98-107 (test code = 382) CO2 (BEAKER) (test 24 meq/L 22-29 code = 355) BLOOD UREA NITROGEN 48 mg/dL 7-21 H (BEAKER) (test code = 354) CREATININE (BEAKER) 5.62 mg/dL 0.57-1.25 H (test code = 358) GLUCOSE RANDOM 94 mg/dL 70-105 (BEAKER) (test code = 652) CALCIUM (BEAKER) 8.2 mg/dL 8.4-10.2 L (test code = 697) EGFR (BEAKER) (test 13 mL/min/1.73 ESTIMA ARI GFR IS code = 1092) sq m NOT ACCURATE CREATININE CLEARANCE IN PREDICTING GLOMERULAR FILTRATION RATE . ESTIMATED GFR I S NOT APPLICABLE FOR DIALYSIS PATIEN TS. Stock Driver ID - [id number] 05:59:30 Test Item Value Reference Range Interpretation Comments PHOSPHORUS (BEAKER) (test code = 5.6 mg/dL 2.3-4.7 H 604) Stock Driver ID - [id number] 05:59:28 Test Item Value Reference Range Interpretation Comments MAGNESIUM (BEAKER) (test code = 2.0 mg/dL 1.6-2.6 627) Stock Driver ID - BSCBC W/PLT COUNT & AUTO [id number] 05:39:00 Test Item Value Reference Range Interpretation Comments WHITE BLOOD CELL COUNT (BEAKER) 10.7 K/ L 3.5-10.5 H (test code = 775) RED BLOOD CELL COUNT (BEAKER) 2.21 M/ L 4.63-6.08 L (test code = 761) HEMOGLOBIN (BEAKER) (test code = 6.5 GM/DL 13.7-17.5 L 410) HEMATOCRIT (BEAKER) (test code = 21.0 % 40.1-51.0 L 411) MEAN CORPUSCULAR VOLUME (BEAKER) 95.0 fL 79.0-92.2 H (test code = 753) MEAN CORPUSCULAR HEMOGLOBIN 29.4 pg 25.7-32.2 (BEAKER) (test code = 751) MEAN CORPUSCULAR HEMOGLOBIN CONC 31.0 GM/DL 32.3-36.5 L (BEAKER) (test code = 752) RED CELL DISTRIBUTION WIDTH 17.4 % 11.6-14.4 H (BEAKER) (test code = 412) PLATELET COUNT (BEAKER) (test 168 K/CU MM 150-450 code = 756) MEAN PLATELET VOLUME (BEAKER) 8.8 fL 9.4-12.4 L (test code = 754) NUCLEATED RED BLOOD CELLS 0 /100 WBC 0-0 (BEAKER) (test code = 413) NEUTROPHILS RELATIVE PERCENT 79 % (BEAKER) (test code = 429) LYMPHOCYTES RELATIVE PERCENT 10 % (BEAKER) (test code = 430) MONOCYTES RELATIVE PERCENT 8 % (BEAKER) (test code = 431) EOSINOPHILS RELATIVE PERCENT 3 % (BEAKER) (test code = 432) BASOPHILS RELATIVE PERCENT 1 % (BEAKER) (test code = 437) NEUTROPHILS ABSOLUTE COUNT 8.47 K/ L 1.78-5.38 H (BEAKER) (test code = 670) LYMPHOCYTES ABSOLUTE COUNT 1.03 K/ L 1.32-3.57 L (BEAKER) (test code = 414) MONOCYTES ABSOLUTE COUNT (BEAKER) 0.83 K/ L 0.30-0.82 H (test code = 415) EOSINOPHILS ABSOLUTE COUNT 0.28 K/ L 0.04-0.54 (BEAKER) (test code = 416) BASOPHILS ABSOLUTE COUNT (BEAKER) 0.07 K/ L 0.01-0.08 (test code = 417) IMMATURE GRANULOCYTES-RELATIVE 1 % 0-1 PERCENT (BEAKER) (test code = 2801) PROTHROMBIN TIME/[id number] 05:38:20 Test Item Value Reference Range Interpretation Comments PROTIME (BEAKER) 37.7 seconds 11.9-14.2 H (test code = 759) INR (BEAKER) (test 3.86 See_Comment [Automat ed message] code = 370) The system Umeng generated this result transmitted ref erence range: <=5.90. The reference range was not used to int erpret this result as normal/abnormal . RECOMMENDED COUMADIN/WARFARIN INR THERAPY RANGESSTANDARD DOSE: 2.0 - 3.0 Includes: PROPHYLAXIS forvenous thrombosis, systemic embolization; TREATMENT for venous thrombosis and/or pulmonary embolus.HIGH RISK: Target INR is 2.5-3.5 for patients with mechanical heart valves.PROTHROMBIN TIME/[id number] 05:38:15 Test Item Value Reference Range Interpretation Comments PROTIME (BEAKER) 38.1 seconds 11.9-14.2 H (test code = 759) INR (BEAKER) (test 3.92 See_Comment [Automat ed message] code = 370) The system Umeng generated this result transmitted ref erence range: <=5.90. The reference range was not used to int erpret this result as normal/abnormal . RECOMMENDED COUMADIN/WARFARIN INR THERAPY RANGESSTANDARD DOSE: 2.0 - 3.0 Includes: PROPHYLAXIS forvenous thrombosis, systemic embolization; TREATMENT for venous thrombosis and/or pulmonary embolus.HIGH RISK: Target INR is 2.5-3.5 for patients with mechanical heart valves.CALCIUM, [id number] 05:28:08 Test Item Value Reference Range Interpretation Comments CALCIUM IONIZED (BEAKER) (test 1.12 mmol/L 1.12-1.27 code = 698) PH, BLOOD (BEAKER) (test code = 7.41 1810) PERIPHERAL BLOOD SMEAR - PATHOLOGIST [id number] 14:07:25 Test Item Value Reference Range Interpretation Comments PERIPHERAL SMR Normocytic normochromic REVIEW (BEAKER) anemia with mild (test code = 7121) anisopoikilocytosis and polychromasia. Rare schistocytes (0.6 per HPF). WBCs include predominantly mature granulocytes. Platelets are decreased, no clumping/satellitism seen. [id number] Anita Zamora, 112 (BEAKER) (test M.D code = 2849) RETICULOCYTE [id number] 11:37:09 Test Item Value Reference Range Interpretation Comments RETICULOCYTE COUNT PCT (BEAKER) (test 3.6 % 0.5-1.8 H code = 575) Stock Driver ID - [id number], [id number] 08:12:42 Test Item Value Reference Range Interpretation Comments CALCIUM IONIZED (BEAKER) (test 1.12 mmol/L 1.12-1.27 code = 698) PH, BLOOD (BEAKER) (test code = 7.41 1810) CBC W/PLT COUNT & AUTO [id number] 07:49:07 Test Item Value Reference Range Interpretation Comments WHITE BLOOD CELL COUNT (BEAKER) 11.5 K/ L 3.5-10.5 H (test code = 775) RED BLOOD CELL COUNT (BEAKER) 2.51 M/ L 4.63-6.08 L (test code = 761) HEMOGLOBIN (BEAKER) (test code = 7.3 GM/DL 13.7-17.5 L 410) HEMATOCRIT (BEAKER) (test code = 23.0 % 40.1-51.0 L 411) MEAN CORPUSCULAR VOLUME (BEAKER) 91.6 fL 79.0-92.2 (test code = 753) MEAN CORPUSCULAR HEMOGLOBIN 29.1 pg 25.7-32.2 (BEAKER) (test code = 751) MEAN CORPUSCULAR HEMOGLOBIN CONC 31.7 GM/DL 32.3-36.5 L (BEAKER) (test code = 752) RED CELL DISTRIBUTION WIDTH 16.8 % 11.6-14.4 H (BEAKER) (test code = 412) PLATELET COUNT (BEAKER) (test 190 K/CU MM 150-450 code = 756) MEAN PLATELET VOLUME (BEAKER) 9.4 fL 9.4-12.4 (test code = 754) NUCLEATED RED BLOOD CELLS 0 /100 WBC 0-0 (BEAKER) (test code = 413) NEUTROPHILS RELATIVE PERCENT 81 % (BEAKER) (test code = 429) LYMPHOCYTES RELATIVE PERCENT 10 % (BEAKER) (test code = 430) MONOCYTES RELATIVE PERCENT 6 % (BEAKER) (test code = 431) EOSINOPHILS RELATIVE PERCENT 2 % (BEAKER) (test code = 432) BASOPHILS RELATIVE PERCENT 1 % (BEAKER) (test code = 437) NEUTROPHILS ABSOLUTE COUNT 9.26 K/ L 1.78-5.38 H (BEAKER) (test code = 670) LYMPHOCYTES ABSOLUTE COUNT 1.17 K/ L 1.32-3.57 L (BEAKER) (test code = 414) MONOCYTES ABSOLUTE COUNT (BEAKER) 0.67 K/ L 0.30-0.82 (test code = 415) EOSINOPHILS ABSOLUTE COUNT 0.25 K/ L 0.04-0.54 (BEAKER) (test code = 416) BASOPHILS ABSOLUTE COUNT (BEAKER) 0.07 K/ L 0.01-0.08 (test code = 417) IMMATURE GRANULOCYTES-RELATIVE 1 % 0-1 PERCENT (BEAKER) (test code = 2801) BASIC METABOLIC [id number] 07:19:01 Test Item Value Reference Range Interpretation Comments SODIUM (BEAKER) 136 meq/L 136-145 (test code = 381) POTASSIUM (BEAKER) 4.8 meq/L 3.5-5.1 Specimen slightly (test code = 379) hemolyzed CHLORIDE (BEAKER) 103 meq/L 98-107 (test code = 382) CO2 (BEAKER) (test 24 meq/L 22-29 code = 355) BLOOD UREA NITROGEN 49 mg/dL 7-21 H (BEAKER) (test code = 354) CREATININE (BEAKER) 5.25 mg/dL 0.57-1.25 H Specimen slightly (test code = 358) hemolyzed GLUCOSE RANDOM 86 mg/dL 70-105 (BEAKER) (test code = 652) CALCIUM (BEAKER) 8.3 mg/dL 8.4-10.2 L (test code = 697) EGFR (BEAKER) (test 15 mL/min/1.73 ESTIMA ARI GFR IS code = 1092) sq m NOT ACCURATE CREATININE CLEARANCE IN PREDICTING GLOMERULAR FILTRATION RATE . ESTIMATED GFR I S NOT APPLICABLE FOR DIALYSIS PATIEN TS. Stock Driver ID - VALDEZ [id number] 07:18:50 Test Item Value Reference Range Interpretation Comments PHOSPHORUS (BEAKER) 5.4 mg/dL 2.3-4.7 H Specimen slightly (test code = 604) hemolyzed Stock Driver ID - VALDEZ [id number] 07:18:49 Test Item Value Reference Range Interpretation Comments MAGNESIUM (BEAKER) 2.0 mg/dL 1.6-2.6 Specimen slightly (test code = 627) hemolyzed Stock Driver ID - VALDEZ MPROTHROMBIN TIME/[id number] 06:39:12 Test Item Value Reference Range Interpretation Comments PROTIME (BEAKER) 33.7 seconds 11.9-14.2 H (test code = 759) INR (BEAKER) (test 3.35 See_Comment [Automat ed message] code = 370) The system Umeng generated this result transmitted ref erence range: <=5.90. The reference range was not used to int erpret this result as normal/abnormal . RECOMMENDED COUMADIN/WARFARIN INR THERAPY RANGESSTANDARD DOSE: 2.0 - 3.0 Includes: PROPHYLAXIS forvenous thrombosis, systemic embolization; TREATMENT for venous thrombosis and/or pulmonary embolus.HIGH RISK: Target INR is 2.5-3.5 for patients with mechanical heart valves.RAD, CHEST, 1 VIEW, NON [id number] 06:01:00Reason for exam:->intubatedShould this be performed at the bedside?->Yes[facility] : 1975 Sex: MFINAL REPORT RAD, CHEST, 1 VIEW, NON DEPT INDICATION: intubated TESFAYE RISON: Prior day's exam FINDINGS: Portable frontal view of the chest. IMPRESSION: Support Lines: Dialysis catheter tip overlies right atrium. Sternotomy wires. Lungs and pleura: Unchanged bilateralairspace opacities concerning for multifocal pneumonia versus multifocal edema. No significant pneumothorax. Heart and mediastinum: Stable contours. Additional findings: None. Signed: Re Cantu MDReport Verified Date/Time: 02/19/2021 06:01:44 , CHEST, 1 VIEW, NON [id number] 07:41:00Reason for exam:- >intubatedShould this be performed at the bedside?->Yes [facility] : 1975 Sex: MFINAL REPORT RAD, CHEST, 1 VIEW, NON DEPT INDICATION: intubated TESFAYE RISON: Prior day's exam FINDINGS: Portable frontal view of the chest. IMPRESSION: Support Lines: Dialysis catheter tip overlies right atrium. Sternotomy wires. Lungs and pleura: Unchanged bilateralairspace opacities concerning for multifocal pneumonia versus multifocal edema. No significant pneumothorax. Heart and mediastinum: Stable contours. Additional findings: None. Signed: Re Cantueport Verified Date/Time: 02/18/2021 07:41:38 B- TYPE NATRIURETIC FACTOR (BNP)2021-02-18 06:52:03 Test Item Value Reference Range Interpretation Comments B-TYPE NATRIURETIC PEPTIDE 8228 pg/mL 0-100 H (BEAKER) (test code = 700) Stock Driver ID - DBOperator ID - DBBASIC METABOLIC [id number] 06:26:54 Test Item Value Reference Range Interpretation Comments SODIUM (BEAKER) 136 meq/L 136-145 (test code = 381) POTASSIUM (BEAKER) 4.5 meq/L 3.5-5.1 (test code = 379) CHLORIDE (BEAKER) 101 meq/L 98-107 (test code = 382) CO2 (BEAKER) (test 28 meq/L 22-29 code = 355) BLOOD UREA NITROGEN 35 mg/dL 7-21 H (BEAKER) (test code = 354) CREATININE (BEAKER) 3.86 mg/dL 0.57-1.25 H (test code = 358) GLUCOSE RANDOM 81 mg/dL 70-105 (BEAKER) (test code = 652) CALCIUM (BEAKER) 8.2 mg/dL 8.4-10.2 L (test code = 697) EGFR (BEAKER) (test 21 mL/min/1.73 ESTIMA ARI GFR IS code = 1092) sq m NOT ACCURATE CREATININE CLEARANCE IN PREDICTING GLOMERULAR FILTRATION RATE . ESTIMATED GFR I S NOT APPLICABLE FOR DIALYSIS PATIEN TS. Stock Driver ID - VALDEZ MPROTHROMBIN TIME/[id number] 06:17:35 Test Item Value Reference Range Interpretation Comments PROTIME (BEAKER) 29.3 seconds 11.9-14.2 H (test code = 759) INR (BEAKER) (test 2.80 See_Comment [Automat ed message] code = 370) The system Umeng generated this result transmitted ref erence range: <=5.90. The reference range was not used to int erpret this result as normal/abnormal . RECOMMENDED COUMADIN/WARFARIN INR THERAPY RANGESSTANDARD DOSE: 2.0 - 3.0 Includes: PROPHYLAXIS forvenous thrombosis, systemic embolization; TREATMENT for venous thrombosis and/or pulmonary embolus.HIGH RISK: Target INR is 2.5-3.5 for patients with mechanical heart valves.CBC W/PLT COUNT & AUTO DIFFERENTIAL 2021-02-18 06:15:58 Test Item Value Reference Range Interpretation Comments WHITE BLOOD CELL COUNT (BEAKER) 8.1 K/ L 3.5-10.5 (test code = 775) RED BLOOD CELL COUNT (BEAKER) 2.40 M/ L 4.63-6.08 L (test code = 761) HEMOGLOBIN (BEAKER) (test code = 7.0 GM/DL 13.7-17.5 L 410) HEMATOCRIT (BEAKER) (test code = 22.1 % 40.1-51.0 L 411) MEAN CORPUSCULAR VOLUME (BEAKER) 92.1 fL 79.0-92.2 (test code = 753) MEAN CORPUSCULAR HEMOGLOBIN 29.2 pg 25.7-32.2 (BEAKER) (test code = 751) MEAN CORPUSCULAR HEMOGLOBIN CONC 31.7 GM/DL 32.3-36.5 L (BEAKER) (test code = 752) RED CELL DISTRIBUTION WIDTH 16.6 % 11.6-14.4 H (BEAKER) (test code = 412) PLATELET COUNT (BEAKER) (test 165 K/CU MM 150-450 code = 756) MEAN PLATELET VOLUME (BEAKER) 9.3 fL 9.4-12.4 L (test code = 754) NUCLEATED RED BLOOD CELLS 0 /100 WBC 0-0 (BEAKER) (test code = 413) NEUTROPHILS RELATIVE PERCENT 71 % (BEAKER) (test code = 429) LYMPHOCYTES RELATIVE PERCENT 15 % (BEAKER) (test code = 430) MONOCYTES RELATIVE PERCENT 8 % (BEAKER) (test code = 431) EOSINOPHILS RELATIVE PERCENT 4 % (BEAKER) (test code = 432) BASOPHILS RELATIVE PERCENT 1 % (BEAKER) (test code = 437) NEUTROPHILS ABSOLUTE COUNT 5.81 K/ L 1.78-5.38 H (BEAKER) (test code = 670) LYMPHOCYTES ABSOLUTE COUNT 1.23 K/ L 1.32-3.57 L (BEAKER) (test code = 414) MONOCYTES ABSOLUTE COUNT (BEAKER) 0.67 K/ L 0.30-0.82 (test code = 415) EOSINOPHILS ABSOLUTE COUNT 0.31 K/ L 0.04-0.54 (BEAKER) (test code = 416) BASOPHILS ABSOLUTE COUNT (BEAKER) 0.08 K/ L 0.01-0.08 (test code = 417) IMMATURE GRANULOCYTES-RELATIVE 1 % 0-1 PERCENT (BEAKER) (test code = 2801) [id number] 06:10:34 Test Item Value Reference Range Interpretation Comments PHOSPHORUS (BEAKER) (test code = 4.2 mg/dL 2.3-4.7 604) Stock Driver ID - VALDEZ [id number] 06:10:33 Test Item Value Reference Range Interpretation Comments MAGNESIUM (BEAKER) (test code = 1.9 mg/dL 1.6-2.6 627) Stock Driver ID - VALDEZ MBLOOD GAS, [id number] 05:54:10 Test Item Value Reference Range Interpretation Comments PH VENOUS (BEAKER) (test code = 7.41 7.32-7.42 701) PCO2 VENOUS (BEAKER) (test code = 46 mm Hg 41-51 755) PO2 VENOUS (BEAKER) (test code = 64 mm Hg 25-40 H 702) O2 SATURATION VENOUS (BEAKER) 93.0 % 40.0-70.0 H (test code = 703) HCO3 VENOUS (BEAKER) (test code = 29 mmol/L 21-29 705) BASE EXCESS VENOUS (BEAKER) (test 3.6 mmol/L -2.0-3.0 H code = 704) PATIENT TEMPERATURE (BEAKER) (test 36.6 code = 1818) FIO2 (BEAKER) (test code = 1819) 21.0 CALCIUM, [id number] 05:53:59 Test Item Value Reference Range Interpretation Comments CALCIUM IONIZED (BEAKER) (test 1.14 mmol/L 1.12-1.27 code = 698) PH, BLOOD (BEAKER) (test code = 7.40 1810) VITAMIN B12 AND [id number] 10:29:00 Test Item Value Reference Range Interpretation Comments VITAMIN B12 (BEAKER) 816 pg/mL 213-816 (test code = 774) FOLATE (BEAKER) 8.40 ng/mL See_Comment [Automated message] (test code = 362) The system which generated this result transmitted ref erence range: >=7.00. The reference range was not used to interpr et this result as normal/abnormal . Stock Driver ID - JESUS CBASIC METABOLIC [id number] 08:43:00 Test Item Value Reference Range Interpretation Comments SODIUM (BEAKER) 135 meq/L 136-145 L (test code = 381) POTASSIUM (BEAKER) 5.1 meq/L 3.5-5.1 Specimen slightly (test code = 379) hemolyzed CHLORIDE (BEAKER) 103 meq/L 98-107 (test code = 382) CO2 (BEAKER) (test 22 meq/L 22-29 code = 355) BLOOD UREA NITROGEN 43 mg/dL 7-21 H (BEAKER) (test code = 354) CREATININE (BEAKER) 5.09 mg/dL 0.57-1.25 H Specimen slightly (test code = 358) hemolyzed GLUCOSE RANDOM 82 mg/dL 70-105 (BEAKER) (test code = 652) CALCIUM (BEAKER) 8.4 mg/dL 8.4-10.2 (test code = 697) EGFR (BEAKER) (test 15 mL/min/1.73 ESTIMA ARI GFR IS code = 1092) sq m NOT ACCURATE CREATININE CLEARANCE IN PREDICTING GLOMERULAR FILTRATION RATE . ESTIMATED GFR I S NOT APPLICABLE FOR DIALYSIS PATIEN TS. Stock Driver ID - SAROJAYA LRAD, CHEST, 1 VIEW, NON [id number] 08:32:00Reason for exam:->intubatedShould this be performed at the bedside?->Yes [facility] 1975 Sex: MFINAL REPORT Chest AP portable Comparison exam: 02/16/2021 History prov ided: Intubated Despite history provided, no ET tube is visualized. Heart size magnified by projection. Dialysis catheter in place. Widespread bilateral airspace disease unchanged. Signed: Riky BooneMDReport Verified Date/Time: 02/17/2021 08:32:52 Reading Location: [facility] Radiology Reading Room MAGNESIUM 2021-02-17 07:55:00 Test Item Value Reference Range Interpretation Comments MAGNESIUM (BEAKER) 2.0 mg/dL 1.6-2.6 Specimen slightly (test code = 627) hemolyzed Stock Driver ID - PIAYA [id number] 07:55:00 Test Item Value Reference Range Interpretation Comments PHOSPHORUS (BEAKER) 4.7 mg/dL 2.3-4.7 Specimen slightly (test code = 604) hemolyzed Stock Driver ID - PIAYA LPROTHROMBIN TIME/[id number] 06:54:00 Test Item Value Reference Range Interpretation Comments PROTIME (BEAKER) 29.4 seconds 11.9-14.2 H (test code = 759) INR (BEAKER) (test 2.82 See_Comment [Automat ed message] code = 370) The system Umeng generated this result transmitted ref erence range: <=5.90. The reference range was not used to int erpret this result as normal/abnormal . RECOMMENDED COUMADIN/WARFARIN INR THERAPY RANGESSTANDARD DOSE: 2.0 - 3.0 Includes: PROPHYLAXIS forvenous thrombosis, systemic embolization; TREATMENT for venous thrombosis and/or pulmonary embolus.HIGH RISK: Target INR is 2.5-3.5 for patients with mechanical heart valves.CALCIUM, [id number] 06:54:00 Test Item Value Reference Range Interpretation Comments CALCIUM IONIZED (BEAKER) (test 1.16 mmol/L 1.12-1.27 code = 698) PH, BLOOD (BEAKER) (test code = 7.39 1810) CBC W/PLT COUNT & AUTO [id number] 06:53:00 Test Item Value Reference Range Interpretation Comments WHITE BLOOD CELL COUNT (BEAKER) 8.4 K/ L 3.5-10.5 (test code = 775) RED BLOOD CELL COUNT (BEAKER) 2.59 M/ L 4.63-6.08 L (test code = 761) HEMOGLOBIN (BEAKER) (test code = 7.7 GM/DL 13.7-17.5 L 410) HEMATOCRIT (BEAKER) (test code = 23.9 % 40.1-51.0 L 411) MEAN CORPUSCULAR VOLUME (BEAKER) 92.3 fL 79.0-92.2 H (test code = 753) MEAN CORPUSCULAR HEMOGLOBIN 29.7 pg 25.7-32.2 (BEAKER) (test code = 751) MEAN CORPUSCULAR HEMOGLOBIN CONC 32.2 GM/DL 32.3-36.5 L (BEAKER) (test code = 752) RED CELL DISTRIBUTION WIDTH 16.6 % 11.6-14.4 H (BEAKER) (test code = 412) PLATELET COUNT (BEAKER) (test 164 K/CU MM 150-450 code = 756) MEAN PLATELET VOLUME (BEAKER) 9.4 fL 9.4-12.4 (test code = 754) NUCLEATED RED BLOOD CELLS 0 /100 WBC 0-0 (BEAKER) (test code = 413) NEUTROPHILS RELATIVE PERCENT 72 % (BEAKER) (test code = 429) LYMPHOCYTES RELATIVE PERCENT 15 % (BEAKER) (test code = 430) MONOCYTES RELATIVE PERCENT 9 % (BEAKER) (test code = 431) EOSINOPHILS RELATIVE PERCENT 3 % (BEAKER) (test code = 432) BASOPHILS RELATIVE PERCENT 1 % (BEAKER) (test code = 437) NEUTROPHILS ABSOLUTE COUNT 5.99 K/ L 1.78-5.38 H (BEAKER) (test code = 670) LYMPHOCYTES ABSOLUTE COUNT 1.22 K/ L 1.32-3.57 L (BEAKER) (test code = 414) MONOCYTES ABSOLUTE COUNT (BEAKER) 0.73 K/ L 0.30-0.82 (test code = 415) EOSINOPHILS ABSOLUTE COUNT 0.28 K/ L 0.04-0.54 (BEAKER) (test code = 416) BASOPHILS ABSOLUTE COUNT (BEAKER) 0.09 K/ L 0.01-0.08 H (test code = 417) IMMATURE GRANULOCYTES-RELATIVE 1 % 0-1 PERCENT (BEAKER) (test code = 2801) POCT-GLUCOSE [id number] 21:32:00 Test Item Value Reference Range Interpretation Comments POC-GLUCOSE METER 103 mg/dL 70-110 : TESTED A T [facility] 6720 (BEAKER) (test code = [employer] [facility], 1538) 45164: Stock Driver/Techni won ID = [id number] for MARÍA AMAYA POCT-GLUCOSE [id number] 16:27:00 Test Item Value Reference Range Interpretation Comments POC-GLUCOSE METER 101 mg/dL 70-110 : TESTED A T [facility] 6720 (BEAKER) (test code = [employer] [facility], 1538) 769[address]: Stock Driver/Techni won ID = [id number] for Delmer Janelle Daly RAD, ANKLE, MIN 3 VIEWS, [id number] 13:26:00Reason for exam:->Ankle pain [facility] : 1975 Sex: MFINAL REPORT CLINICAL HISTORY: Ankle pain TECHNIQUE: Three views of t he left ankle COMPARISON: None IMPRESSION: There is diffuse soft tissue swelling throughout the ankle with an ankle joint effusion. There is no evidence for fracture or dislocation. There is a dorsal calcaneal spur. Signed: Melodie Zarate MDReport Verified Date/Time: 02/16/2021 13:26:52 Reading Location: [facility] Reading Room POCT-GLUCOSE [id number] 12:24:00 Test Item Value Reference Range Interpretation Comments POC-GLUCOSE METER 97 mg/dL 70-110 : TESTED A T [facility] 6720 (BEAKER) (test code = [place], 1538) 05652: Stock Driver/Techni won ID = [id number] for Janelle Powers BASIC METABOLIC [id number] 12:00:00 Test Item Value Reference Range Interpretation Comments SODIUM (BEAKER) 135 meq/L 136-145 L (test code = 381) POTASSIUM (BEAKER) 4.4 meq/L 3.5-5.1 (test code = 379) CHLORIDE (BEAKER) 102 meq/L 98-107 (test code = 382) CO2 (BEAKER) (test 29 meq/L 22-29 code = 355) BLOOD UREA NITROGEN 30 mg/dL 7-21 H (BEAKER) (test code = 354) CREATININE (BEAKER) 3.66 mg/dL 0.57-1.25 H (test code = 358) GLUCOSE RANDOM 85 mg/dL 70-105 (BEAKER) (test code = 652) CALCIUM (BEAKER) 8.0 mg/dL 8.4-10.2 L (test code = 697) EGFR (BEAKER) (test 22 mL/min/1.73 ESTIMA ARI GFR IS code = 1092) sq m NOT ACCURATE CREATININE CLEARANCE IN PREDICTING GLOMERULAR FILTRATION RATE . ESTIMATED GFR I S NOT APPLICABLE FOR DIALYSIS PATIEN TS. Stock Driver ID - GEMINI [id number] 11:52:00 Test Item Value Reference Range Interpretation Comments MAGNESIUM (BEAKER) (test code = 1.8 mg/dL 1.6-2.6 627) Stock Driver ID - GEMINI [id number] 11:52:00 Test Item Value Reference Range Interpretation Comments PHOSPHORUS (BEAKER) (test code = 4.0 mg/dL 2.3-4.7 604) Stock Driver ID - GEMINI BRUNO, CHEST, 1 VIEW, NON [id number] 10:51:00Reason for exam:->Pulmonary vascular congestion; ESRD on HDShould this be performed at the bedside?->Yes [facility] 1975 Sex: MFINAL REPORT CLINICAL HISTORY: Pulmonary vascular congestion; ESRD on HD TECHNIQUE: 1 view of the chest. COMPARISON: 02/15/2021 IMPRESSION: The right central line is unchanged. Diffuse bilateral airspace opacities appear slightly decreased. A small left pleural effusion is again noted. The cardiomediastinal silhouette is magnified by technique with sternotomy wires. Signed: Melodie Zarate Verified Date/Time: 02/16/2021 10:51:39 Reading Location: [facility] Reading Room POCT-GLUCOSE [id number] 07:52:00 Test Item Value Reference Range Interpretation Comments POC-GLUCOSE METER 100 mg/dL 70-110 : TESTED A T [facility] 6720 (BEAKER) (test code = RAYMONJACQUELINE Tenorio [facility], 1538) [address]: Stock Driver/Techni won ID = [id number] for Delmer Janelle Daly CALCIUM, [id number] 06:46:00 Test Item Value Reference Range Interpretation Comments CALCIUM IONIZED (BEAKER) (test 1.14 mmol/L 1.12-1.27 code = 698) PH, BLOOD (BEAKER) (test code = 7.43 1810) PROTHROMBIN [id number] 06:38:00 Test Item Value Reference Range Interpretation Comments PROTIME (BEAKER) 29.2 seconds 11.9-14.2 H (test code = 759) INR (BEAKER) (test 2.80 See_Comment [Automat ed message] code = 370) The system Umeng generated this result transmitted ref erence range: <=5.90. The reference range was not used to int erpret this result as normal/abnormal . RECOMMENDED COUMADIN/WARFARIN INR THERAPY RANGESSTANDARD DOSE: 2.0 - 3.0 Includes: PROPHYLAXIS forvenous thrombosis, systemic embolization; TREATMENT for venous thrombosis and/or pulmonary embolus.HIGH RISK: Target INR is 2.5-3.5 for patients with mechanical heart valves.CBC W/PLT COUNT & AUTO DIFFERENTIAL 2021-02-16 06:36:00 Test Item Value Reference Range Interpretation Comments WHITE BLOOD CELL COUNT (BEAKER) 7.1 K/ L 3.5-10.5 (test code = 775) RED BLOOD CELL COUNT (BEAKER) 2.29 M/ L 4.63-6.08 L (test code = 761) HEMOGLOBIN (BEAKER) (test code = 6.7 GM/DL 13.7-17.5 L 410) HEMATOCRIT (BEAKER) (test code = 21.4 % 40.1-51.0 L 411) MEAN CORPUSCULAR VOLUME (BEAKER) 93.4 fL 79.0-92.2 H (test code = 753) MEAN CORPUSCULAR HEMOGLOBIN 29.3 pg 25.7-32.2 (BEAKER) (test code = 751) MEAN CORPUSCULAR HEMOGLOBIN CONC 31.3 GM/DL 32.3-36.5 L (BEAKER) (test code = 752) RED CELL DISTRIBUTION WIDTH 16.8 % 11.6-14.4 H (BEAKER) (test code = 412) PLATELET COUNT (BEAKER) (test 157 K/CU MM 150-450 code = 756) MEAN PLATELET VOLUME (BEAKER) 8.9 fL 9.4-12.4 L (test code = 754) NUCLEATED RED BLOOD CELLS 0 /100 WBC 0-0 (BEAKER) (test code = 413) NEUTROPHILS RELATIVE PERCENT 69 % (BEAKER) (test code = 429) LYMPHOCYTES RELATIVE PERCENT 16 % (BEAKER) (test code = 430) MONOCYTES RELATIVE PERCENT 10 % (BEAKER) (test code = 431) EOSINOPHILS RELATIVE PERCENT 4 % (BEAKER) (test code = 432) BASOPHILS RELATIVE PERCENT 1 % (BEAKER) (test code = 437) NEUTROPHILS ABSOLUTE COUNT 4.88 K/ L 1.78-5.38 (BEAKER) (test code = 670) LYMPHOCYTES ABSOLUTE COUNT 1.13 K/ L 1.32-3.57 L (BEAKER) (test code = 414) MONOCYTES ABSOLUTE COUNT (BEAKER) 0.71 K/ L 0.30-0.82 (test code = 415) EOSINOPHILS ABSOLUTE COUNT 0.25 K/ L 0.04-0.54 (BEAKER) (test code = 416) BASOPHILS ABSOLUTE COUNT (BEAKER) 0.07 K/ L 0.01-0.08 (test code = 417) IMMATURE GRANULOCYTES-RELATIVE 0 % 0-1 PERCENT (BEAKER) (test code = 2801) PROTHROMBIN [id number] 23:36:00 Test Item Value Reference Range Interpretation Comments PROTIME (BEAKER) 28.8 seconds 11.9-14.2 H (test code = 759) INR (BEAKER) (test 2.74 See_Comment [Automat ed message] code = 370) The system Umeng generated this result transmitted ref erence range: <=5.90. The reference range was not used to int erpret this result as normal/abnormal . RECOMMENDED COUMADIN/WARFARIN INR THERAPY RANGESSTANDARD DOSE: 2.0 - 3.0 Includes: PROPHYLAXIS forvenous thrombosis, systemic embolization; TREATMENT for venous thrombosis and/or pulmonary embolus.HIGH RISK: Target INR is 2.5-3.5 for patients with mechanical heart valves.HEMOGLOBIN AND [id number] 23:26:00 Test Item Value Reference Range Interpretation Comments HEMOGLOBIN (BEAKER) (test code = 6.9 GM/DL 13.7-17.5 L 410) HEMATOCRIT (BEAKER) (test code = 21.4 % 40.1-51.0 L 411) Stock Driver ID - 6000POCT-GLUCOSE [id number] 12:19:00 Test Item Value Reference Range Interpretation Comments POC-GLUCOSE METER 123 mg/dL 70-110 H : TESTED A T [facility] 6720 (BEAKER) (test code [facility], = 1538) 11207: Stock Driver/Techni won ID = [id number] for Maikel robledo (contract), Syt damien RAD, CHEST, 1 VIEW, NON [id number] 07:27:00Reason for exam:->Pulmonary vascular congestion; ESRD on HDShould this be performed at the bedside?->Yes [facility] : 1975 Sex: MFINAL REPORT CLINICAL HISTORY: Pulmonary vascular congestion; ESRD on HD TECHNIQUE: 1 view of the chest. COMPARISON: 02/14/2021 IMPRESSION: The right central line is unchanged. Diffuse bilateral airspace opacities appear slightly increased. Small pleural effusions cannot be excluded. Cardiomegaly is again seen poststernotomy with valvular repair. Signed: Melodie Zarate MDReport Verified Date/Time: 02/15/2021 07:27:43 Reading Location: [facility] Reading Room BASIC METABOLIC [id number] 06:32:00 Test Item Value Reference Range Interpretation Comments SODIUM (BEAKER) 137 meq/L 136-145 (test code = 381) POTASSIUM (BEAKER) 3.7 meq/L 3.5-5.1 (test code = 379) CHLORIDE (BEAKER) 105 meq/L 98-107 (test code = 382) CO2 (BEAKER) (test 24 meq/L 22-29 code = 355) BLOOD UREA NITROGEN 30 mg/dL 7-21 H (BEAKER) (test code = 354) CREATININE (BEAKER) 3.14 mg/dL 0.57-1.25 H (test code = 358) GLUCOSE RANDOM 82 mg/dL 70-105 (BEAKER) (test code = 652) CALCIUM (BEAKER) 7.9 mg/dL 8.4-10.2 L (test code = 697) EGFR (BEAKER) (test 26 mL/min/1.73 ESTIMA ARI GFR IS code = 1092) sq m NOT ACCURATE CREATININE CLEARANCE IN PREDICTING GLOMERULAR FILTRATION RATE . ESTIMATED GFR I S NOT APPLICABLE FOR DIALYSIS PATIEN TS. Stock Driver ID - LINA [id number] 06:31:00 Test Item Value Reference Range Interpretation Comments MAGNESIUM (BEAKER) (test code = 1.7 mg/dL 1.6-2.6 627) Stock Driver ID - LINA [id number] 06:31:00 Test Item Value Reference Range Interpretation Comments PHOSPHORUS (BEAKER) (test code = 3.6 mg/dL 2.3-4.7 604) Stock Driver ID - LINA LCBC W/PLT COUNT & AUTO [id number] 06:22:00 Test Item Value Reference Range Interpretation Comments WHITE BLOOD CELL COUNT (BEAKER) 5.1 K/ L 3.5-10.5 (test code = 775) RED BLOOD CELL COUNT (BEAKER) 2.33 M/ L 4.63-6.08 L (test code = 761) HEMOGLOBIN (BEAKER) (test code = 6.8 GM/DL 13.7-17.5 L 410) HEMATOCRIT (BEAKER) (test code = 21.6 % 40.1-51.0 L 411) MEAN CORPUSCULAR VOLUME (BEAKER) 92.7 fL 79.0-92.2 H (test code = 753) MEAN CORPUSCULAR HEMOGLOBIN 29.2 pg 25.7-32.2 (BEAKER) (test code = 751) MEAN CORPUSCULAR HEMOGLOBIN CONC 31.5 GM/DL 32.3-36.5 L (BEAKER) (test code = 752) RED CELL DISTRIBUTION WIDTH 16.8 % 11.6-14.4 H (BEAKER) (test code = 412) PLATELET COUNT (BEAKER) (test 147 K/CU MM 150-450 L code = 756) MEAN PLATELET VOLUME (BEAKER) 9.5 fL 9.4-12.4 (test code = 754) NUCLEATED RED BLOOD CELLS 0 /100 WBC 0-0 (BEAKER) (test code = 413) NEUTROPHILS RELATIVE PERCENT 67 % (BEAKER) (test code = 429) LYMPHOCYTES RELATIVE PERCENT 18 % (BEAKER) (test code = 430) MONOCYTES RELATIVE PERCENT 10 % (BEAKER) (test code = 431) EOSINOPHILS RELATIVE PERCENT 4 % (BEAKER) (test code = 432) BASOPHILS RELATIVE PERCENT 1 % (BEAKER) (test code = 437) NEUTROPHILS ABSOLUTE COUNT 3.44 K/ L 1.78-5.38 (BEAKER) (test code = 670) LYMPHOCYTES ABSOLUTE COUNT 0.92 K/ L 1.32-3.57 L (BEAKER) (test code = 414) MONOCYTES ABSOLUTE COUNT (BEAKER) 0.50 K/ L 0.30-0.82 (test code = 415) EOSINOPHILS ABSOLUTE COUNT 0.20 K/ L 0.04-0.54 (BEAKER) (test code = 416) BASOPHILS ABSOLUTE COUNT (BEAKER) 0.06 K/ L 0.01-0.08 (test code = 417) IMMATURE GRANULOCYTES-RELATIVE 0 % 0-1 PERCENT (BEAKER) (test code = 2801) CALCIUM, [id number] 06:13:00 Test Item Value Reference Range Interpretation Comments CALCIUM IONIZED (BEAKER) (test 1.18 mmol/L 1.12-1.27 code = 698) PH, BLOOD (BEAKER) (test code = 7.41 1810) SARS-COV2/RT-PCR ([facility])2021-02-15 02:44:00 Test Item Value Reference Range Interpretation Comments SARS-COV2/RT-PCR (test code = Negative Negative [id number]) Negative result for this test determines that SARS-CoV-2 RNA was not present in the specimen above the Limit of Detection (LOD). However, Negative results do not preclude SARS-CoV-2 infection and should not be used as the sole basis for treatment or patient management decisions. Negative results must be combined with clinical observations, patient history, and epidemiological information. A false negative result may occur if a specimen is improperly collected, transported, or handled. A false negative result should be considered if patient's recent exposures or clinical presentation indicate that COVID-19 (SARS-CoV-2) is likely and diagnostic tests for other causes of illness are negative. Re-testing should be considered in cases of suspected false negatives.The limit of detection for this assay is 100 copies/mL.This SARS-CoV-2 test is a real-time RT_PCR test intended for the qualitative detection of nucleic acid from SARS-CoV-2 in a nasopharyngeal swab specimen collected from individuals suspected of COVID-19 by their healthcare provider.This test has not been Food and Drug Administration (FDA) cleared or approved. This is a modified version of an approved Emergency Use Authorization (EUA) and is in the process of review by the FDA. Once authorized by the FDA, the issued EUA will be e ffective until the declaration that circumstances exist justifying the authorization of the emergency use of in vitro diagnostic tests for detection and/or diagnosis of COVID-19 is terminated under Section 564(b)(2) of the Act or the EUA is revoked under Section 564(g) of the Act.Testing was performedusing the Mcdonald SARS-CoV-2 assay.Fact Sheet for Healthcare Providers:https://www.[email or web address]/jermaine/RT SARS-CoV-2 HCP Fact Sheet 51- 838171.pdfFact Sheet for Healthcare Patients:https://www.[email or web address].mcdonald/jermaine/RT SARS-CoV-2 Patient Fact Sheet EN 51-207734J1.pdfBASIC METABOLIC [id number] 23:48:00 Test Item Value Reference Range Interpretation Comments SODIUM (BEAKER) 135 meq/L 136-145 L (test code = 381) POTASSIUM (BEAKER) 5.1 meq/L 3.5-5.1 Specimen slightly (test code = 379) hemolyzed CHLORIDE (BEAKER) 103 meq/L 98-107 (test code = 382) CO2 (BEAKER) (test 22 meq/L 22-29 code = 355) BLOOD UREA NITROGEN 49 mg/dL 7-21 H (BEAKER) (test code = 354) CREATININE (BEAKER) 4.94 mg/dL 0.57-1.25 H Specimen slightly (test code = 358) hemolyzed GLUCOSE RANDOM 86 mg/dL 70-105 (BEAKER) (test code = 652) CALCIUM (BEAKER) 8.2 mg/dL 8.4-10.2 L (test code = 697) EGFR (BEAKER) (test 16 mL/min/1.73 ESTIMA ARI GFR IS code = 1092) sq m NOT ACCURATE CREATININE CLEARANCE IN PREDICTING GLOMERULAR FILTRATION RATE . ESTIMATED GFR I S NOT APPLICABLE FOR DIALYSIS PATIEN TS. Stock Driver ID - LINA [id number] 23:39:00 Test Item Value Reference Range Interpretation Comments MAGNESIUM (BEAKER) 2.0 mg/dL 1.6-2.6 Specimen slightly (test code = 627) hemolyzed Stock Driver ID - LINA [id number] 23:39:00 Test Item Value Reference Range Interpretation Comments PHOSPHORUS (BEAKER) 6.0 mg/dL 2.3-4.7 H Specimen slightly (test code = 604) hemolyzed Stock Driver ID - LINA LPOCT-GLUCOSE [id number] 18:16:00 Test Item Value Reference Range Interpretation Comments POC-GLUCOSE METER 130 mg/dL 70-110 H : TESTED A T [facility] 6720 (BEAKER) (test code = NORM Tenorio [facility], 1538) [address]: Stock Driver/Techni won ID = [id number] for Da vis, Paige RAD, CHEST, 1 VIEW, NON [id number] 08:33:00Reason for exam:->Pulmonary vascular congestion; ESRD on HDShould this be performed at the bedside?->Yes [facility] : 1975 Sex: MFINAL REPORT RAD, CHEST, 1 VIEW, NON DEPT TECHNIQUE: Frontal view(s)of the chest. INDICATION: Pulmonary vascular congestion; ESRD on HD. COMPARISON: Chest radiograph one day prior FINDINGS/IMPRESSION: Lines/Tubes: Unchanged Lungs/pleura: Mid to lower lung predominant airspace opacities bilaterally have partially improved since 02/13/2021. No definite pleural effusion. No pneumothorax. Heart and Mediastinum: Unchanged. Soft Tissues and Bones: Unchanged. Signed: Delano Castro Verified Date/Time: 02/14/2021 08:33:43 Reading Location: [facility] Diagnostic Imaging Reading Room - [place] [address] HEPATITIS B SURFACE [id number] 07:31:00 Test Item Value Reference Range Interpretation Comments HEPATITIS B SURFACE ANTIGEN (2) Nonreactive Nonreactive (BEAKER) (test code = 2585) Specimen is considered negative for HBsAg.BASIC METABOLIC [id number] 06:29:00 Test Item Value Reference Range Interpretation Comments SODIUM (BEAKER) 138 meq/L 136-145 (test code = 381) POTASSIUM (BEAKER) 3.8 meq/L 3.5-5.1 (test code = 379) CHLORIDE (BEAKER) 102 meq/L 98-107 (test code = 382) CO2 (BEAKER) (test 25 meq/L 22-29 code = 355) BLOOD UREA NITROGEN 23 mg/dL 7-21 H (BEAKER) (test code = 354) CREATININE (BEAKER) 3.45 mg/dL 0.57-1.25 H (test code = 358) GLUCOSE RANDOM 81 mg/dL 70-105 (BEAKER) (test code = 652) CALCIUM (BEAKER) 8.7 mg/dL 8.4-10.2 (test code = 697) EGFR (BEAKER) (test 24 mL/min/1.73 ESTIMA ARI GFR IS code = 1092) sq m NOT ACCURATE CREATININE CLEARANCE IN PREDICTING GLOMERULAR FILTRATION RATE . ESTIMATED GFR I S NOT APPLICABLE FOR DIALYSIS PATIEN TS. Stock Driver ID - VALDEZ [id number] 06:12:00 Test Item Value Reference Range Interpretation Comments MAGNESIUM (BEAKER) (test code = 1.9 mg/dL 1.6-2.6 627) Stock Driver ID - VALDEZ [id number] 06:12:00 Test Item Value Reference Range Interpretation Comments PHOSPHORUS (BEAKER) (test code = 4.1 mg/dL 2.3-4.7 604) Stock Driver ID - VALDEZ MPROTHROMBIN [id number] 06:07:00 Test Item Value Reference Range Interpretation Comments PROTIME (BEAKER) 24.0 seconds 11.9-14.2 H (test code = 759) INR (BEAKER) (test 2.17 See_Comment [Automat ed message] code = 370) The system Umeng generated this result transmitted ref erence range: <=5.90. The reference range was not used to int erpret this result as normal/abnormal . RECOMMENDED COUMADIN/WARFARIN INR THERAPY RANGESSTANDARD DOSE: 2.0 - 3.0 Includes: PROPHYLAXIS forvenous thrombosis, systemic embolization; TREATMENT for venous thrombosis and/or pulmonary embolus.HIGH RISK: Target INR is 2.5-3.5 for patients with mechanical heart valves.CBC W/PLT COUNT & AUTO DIFFERENTIAL 2021-02-14 05:56:00 Test Item Value Reference Range Interpretation Comments WHITE BLOOD CELL COUNT (BEAKER) 11.4 K/ L 3.5-10.5 H (test code = 775) RED BLOOD CELL COUNT (BEAKER) 3.05 M/ L 4.63-6.08 L (test code = 761) HEMOGLOBIN (BEAKER) (test code = 8.9 GM/DL 13.7-17.5 L 410) HEMATOCRIT (BEAKER) (test code = 27.8 % 40.1-51.0 L 411) MEAN CORPUSCULAR VOLUME (BEAKER) 91.1 fL 79.0-92.2 (test code = 753) MEAN CORPUSCULAR HEMOGLOBIN 29.2 pg 25.7-32.2 (BEAKER) (test code = 751) MEAN CORPUSCULAR HEMOGLOBIN CONC 32.0 GM/DL 32.3-36.5 L (BEAKER) (test code = 752) RED CELL DISTRIBUTION WIDTH 16.9 % 11.6-14.4 H (BEAKER) (test code = 412) PLATELET COUNT (BEAKER) (test 187 K/CU MM 150-450 code = 756) MEAN PLATELET VOLUME (BEAKER) 9.3 fL 9.4-12.4 L (test code = 754) NUCLEATED RED BLOOD CELLS 0 /100 WBC 0-0 (BEAKER) (test code = 413) NEUTROPHILS RELATIVE PERCENT 83 % (BEAKER) (test code = 429) LYMPHOCYTES RELATIVE PERCENT 10 % (BEAKER) (test code = 430) MONOCYTES RELATIVE PERCENT 7 % (BEAKER) (test code = 431) EOSINOPHILS RELATIVE PERCENT 0 % (BEAKER) (test code = 432) BASOPHILS RELATIVE PERCENT 1 % (BEAKER) (test code = 437) NEUTROPHILS ABSOLUTE COUNT 9.41 K/ L 1.78-5.38 H (BEAKER) (test code = 670) LYMPHOCYTES ABSOLUTE COUNT 1.09 K/ L 1.32-3.57 L (BEAKER) (test code = 414) MONOCYTES ABSOLUTE COUNT (BEAKER) 0.74 K/ L 0.30-0.82 (test code = 415) EOSINOPHILS ABSOLUTE COUNT 0.02 K/ L 0.04-0.54 L (BEAKER) (test code = 416) BASOPHILS ABSOLUTE COUNT (BEAKER) 0.07 K/ L 0.01-0.08 (test code = 417) IMMATURE GRANULOCYTES-RELATIVE 0 % 0-1 PERCENT (BEAKER) (test code = 2801) BLOOD GAS, [id number] 05:49:00 Test Item Value Reference Range Interpretation Comments PH VENOUS (BEAKER) (test code = 7.41 7.32-7.42 701) PCO2 VENOUS (BEAKER) (test code = 46 mm Hg 41-51 755) PO2 VENOUS (BEAKER) (test code = 44 mm Hg 25-40 H 702) O2 SATURATION VENOUS (BEAKER) 80.6 % 40.0-70.0 H (test code = 703) HCO3 VENOUS (BEAKER) (test code = 29 mmol/L 21-29 705) BASE EXCESS VENOUS (BEAKER) (test 3.7 mmol/L -2.0-3.0 H code = 704) PATIENT TEMPERATURE (BEAKER) (test 36.7 code = 1818) FIO2 (BEAKER) (test code = 1819) 40.0 CALCIUM, [id number] 05:48:00 Test Item Value Reference Range Interpretation Comments CALCIUM IONIZED (BEAKER) (test 1.12 mmol/L 1.12-1.27 code = 698) PH, BLOOD (BEAKER) (test code = 7.41 1810) BASIC METABOLIC [id number] 04:12:00 Test Item Value Reference Range Interpretation Comments SODIUM (BEAKER) 137 meq/L 136-145 (test code = 381) POTASSIUM (BEAKER) 5.8 meq/L 3.5-5.1 H (test code = 379) CHLORIDE (BEAKER) 102 meq/L 98-107 (test code = 382) CO2 (BEAKER) (test 21 meq/L 22-29 L code = 355) BLOOD UREA NITROGEN 67 mg/dL 7-21 H (BEAKER) (test code = 354) CREATININE (BEAKER) 6.96 mg/dL 0.57-1.25 H (test code = 358) GLUCOSE RANDOM 78 mg/dL 70-105 (BEAKER) (test code = 652) CALCIUM (BEAKER) 8.9 mg/dL 8.4-10.2 (test code = 697) EGFR (BEAKER) (test 11 mL/min/1.73 ESTIMA ARI GFR IS code = 1092) sq m NOT ACCURATE CREATININE CLEARANCE IN PREDICTING GLOMERULAR FILTRATION RATE . ESTIMATED GFR I S NOT APPLICABLE FOR DIALYSIS PATIEN TS. Stock Driver ID - VALDEZ MOperator SHELBI - LINA LPROTHROMBIN [id number] 03:42:00 Test Item Value Reference Range Interpretation Comments PROTIME (BEAKER) 25.4 seconds 11.9-14.2 H (test code = 759) INR (BEAKER) (test 2.34 See_Comment [Automat ed message] code = 370) The system Umeng generated this result transmitted ref erence range: <=5.90. The reference range was not used to int erpret this result as normal/abnormal . RECOMMENDED COUMADIN/WARFARIN INR THERAPY RANGESSTANDARD DOSE: 2.0 - 3.0 Includes: PROPHYLAXIS forvenous thrombosis, systemic embolization; TREATMENT for venous thrombosis and/or pulmonary embolus.HIGH RISK: Target INR is 2.5-3.5 for patients with mechanical heart valves.[id number] 03:40:00 Test Item Value Reference Range Interpretation Comments MAGNESIUM (BEAKER) (test code = 2.0 mg/dL 1.6-2.6 627) Stock Driver ID - LINA [id number] 03:19:00 Test Item Value Reference Range Interpretation Comments PHOSPHORUS (BEAKER) (test code = 7.9 mg/dL 2.3-4.7 H 604) Stock Driver ID - VALDEZ MCBC W/PLT COUNT & AUTO [id number] 03:06:00 Test Item Value Reference Range Interpretation Comments WHITE BLOOD CELL COUNT (BEAKER) 11.7 K/ L 3.5-10.5 H (test code = 775) RED BLOOD CELL COUNT (BEAKER) 2.86 M/ L 4.63-6.08 L (test code = 761) HEMOGLOBIN (BEAKER) (test code = 8.4 GM/DL 13.7-17.5 L 410) HEMATOCRIT (BEAKER) (test code = 25.8 % 40.1-51.0 L 411) MEAN CORPUSCULAR VOLUME (BEAKER) 90.2 fL 79.0-92.2 (test code = 753) MEAN CORPUSCULAR HEMOGLOBIN 29.4 pg 25.7-32.2 (BEAKER) (test code = 751) MEAN CORPUSCULAR HEMOGLOBIN CONC 32.6 GM/DL 32.3-36.5 (BEAKER) (test code = 752) RED CELL DISTRIBUTION WIDTH 16.8 % 11.6-14.4 H (BEAKER) (test code = 412) PLATELET COUNT (BEAKER) (test 187 K/CU MM 150-450 code = 756) MEAN PLATELET VOLUME (BEAKER) 9.4 fL 9.4-12.4 (test code = 754) NUCLEATED RED BLOOD CELLS 0 /100 WBC 0-0 (BEAKER) (test code = 413) NEUTROPHILS RELATIVE PERCENT 85 % (BEAKER) (test code = 429) LYMPHOCYTES RELATIVE PERCENT 7 % (BEAKER) (test code = 430) MONOCYTES RELATIVE PERCENT 7 % (BEAKER) (test code = 431) EOSINOPHILS RELATIVE PERCENT 0 % (BEAKER) (test code = 432) BASOPHILS RELATIVE PERCENT 1 % (BEAKER) (test code = 437) NEUTROPHILS ABSOLUTE COUNT 9.91 K/ L 1.78-5.38 H (BEAKER) (test code = 670) LYMPHOCYTES ABSOLUTE COUNT 0.79 K/ L 1.32-3.57 L (BEAKER) (test code = 414) MONOCYTES ABSOLUTE COUNT (BEAKER) 0.86 K/ L 0.30-0.82 H (test code = 415) EOSINOPHILS ABSOLUTE COUNT 0.02 K/ L 0.04-0.54 L (BEAKER) (test code = 416) BASOPHILS ABSOLUTE COUNT (BEAKER) 0.06 K/ L 0.01-0.08 (test code = 417) IMMATURE GRANULOCYTES-RELATIVE 0 % 0-1 PERCENT (BEAKER) (test code = 2801) BLOOD GAS, [id number] 03:01:00 Test Item Value Reference Range Interpretation Comments PH VENOUS (BEAKER) (test code = 7.35 7.32-7.42 701) PCO2 VENOUS (BEAKER) (test code = 44 mm Hg 41-51 755) PO2 VENOUS (BEAKER) (test code = 76 mm Hg 25-40 H 702) O2 SATURATION VENOUS (BEAKER) 94.5 % 40.0-70.0 H (test code = 703) HCO3 VENOUS (BEAKER) (test code = 23 mmol/L 21-29 705) BASE EXCESS VENOUS (BEAKER) (test -2.2 mmol/L -2.0-3.0 L code = 704) PATIENT TEMPERATURE (BEAKER) 37.0 (test code = 1818) FIO2 (BEAKER) (test code = 1819) 100.0 CALCIUM, [id number] 03:01:00 Test Item Value Reference Range Interpretation Comments CALCIUM IONIZED (BEAKER) (test 1.12 mmol/L 1.12-1.27 code = 698) PH, BLOOD (BEAKER) (test code = 7.35 1810) RAD, CHEST, 1 VIEW, NON [id number] 23:28:00Reason for exam:->assess volume statusShould this be performed at the bedside?->Yes [facility] : 1975 Sex: MFINAL REPORT RAD, CHEST, 1 VIEW, NON DEPT INDICATION: assess volume s tatus COMPARISON: Prior day's exam FINDINGS: Portable frontal view of the chest. IMPRESSION: Support Lines: Stable. Lungs and pleura: Unchanged moderately extensive bilateral hazy airspace opacitiescompatible with edema and left pleural effusion. No pneumothorax.Heart and mediastinum: Stable contou rs.Additional findings: None. Signed: Sharon Krishnan Verified Date/Time: 02/13/2021 23:28:46 RAD, CHEST, 1 VIEW, NON [id number] 23:20:00Reason for exam:->difficulty of breathingShould this be performed at the bedside?->Yes[facility] : 1975 Sex: MFINAL REPORT RAD, CHEST, 1 VIEW, NON DEPT INDICATION: difficulty of b reathing COMPARISON: Exam from two hours prior FINDINGS: Portable frontal view of the chest. IMPRESSION: Support Lines: Stable. Lungs and pleura: There are increasing bilateral airspace opacities compatible with worsening edema or pneumonia. Small to moderate bilateral pleural effusions are likely present. No pneumothorax.Heart and mediastinum: Stable contours and postsurgical changes.Additional findings: None. Signed: Sharon Krishnan Verified Date/Time: 02/13/2021 23:20:13 POCT-BLOOD GASES, [id number] 23:09:00 Test Item Value Reference Range Interpretation Comments TEMP, CELSIUS-POC (BEAKER) (test code = 1834) FIO2-POC (BEAKER) (test code = 1835) PH, ARTERIAL-POC 7.405 7.350-7.450 (BEAKER) (test code = 1836) PCO2, ARTERIAL-POC 37.7 mm Hg 35.0-45.0 If pO2 is >180, pCO2 may (BEAKER) (test code be posit ively biased = 1837) PO2, ARTERIAL-POC 57.0 mm Hg 80.0-90.0 L (BEAKER) (test code = 1838) SO2, ARTERIAL-POC 90.0 % 96.0-97.0 L (BEAKER) (test code = 1839) HCO3, ARTERIAL-POC 23.6 meq/L 21.0-29.0 (BEAKER) (test code = 1840) BASE EXCESS, -1.0 meq/L -2.0-3.0 : TESTED AT [facility] 6720 ARTERIAL-POC [facility], (BEAKER) (test code 12064: = 1841) Stock Driver/Techni won ID = [id number] for SUBI A, ARGELIA [id number] 23:09:00 Test Item Value Reference Range Interpretation Comments POC-SODIUM (BEAKER) 135 meq/L 135-148 : TESTED AT [place] [address] (test code = 1542) [facility], [address]: Stock Driver/Techni won ID = [id number] for SUBI A, ARGELIA [id number] 23:09:00 Test Item Value Reference Range Interpretation Comments POC-POTASSIUM 5.7 meq/L 3.6-5.5 H : TESTED AT [place] [address] (BEAKER) (test code [facility], = 1540) [address]: Stock Driver/Techni won ID = [id number] for SUBI A, ARGELIA [id number] 23:09:00 Test Item Value Reference Range Interpretation Comments POC-HEMOGLOBIN 9.5 g/dL 13.0-16.8 L : TESTED AT [place] [address] (BEAKER) (test code = [facility], 1856) [address]: Stock Driver/Techni won ID = [id number] for SUBI A, ARGELIA [id number] 23:09:00 Test Item Value Reference Range Interpretation Comments POC-HEMATOCRIT 28 % 40-50 L : Stock Driver/Te chnician ID = (BEAKER) (test code = 615012 for ARGELIA ORTEGA 1857) [id number] 23:09:00 Test Item Value Reference Range Interpretation Comments POC-GLUCOSE (BEAKER) 97 mg/dL 70-110 : [facility] (test code = 1855[facility], [address]: Stock Driver/Techni won ID = [id number] for SUBI A, ARGELIA POCT-GLUCOSE [id number] 22:30:00 Test Item Value Reference Range Interpretation Comments POC-GLUCOSE METER 102 mg/dL 70-110 : [facility] (BE[facility]ER[facility] (test code = [facility], 1538) [address]: Stock Driver/Techni won ID = [id number] for DE NNJERAMIE, FRED POCT-GLUCOSE [id number] 17:26:00 Test Item Value Reference Range Interpretation Comments POC-GLUCOSE METER 85 mg/dL 70-110 : [facility] (test code [facility], = 1538) [address]: Stock Driver/Techni won ID = [id number] for DORIAN SHAHID BASIC METABOLIC [id number] 07:01:00 Test Item Value Reference Range Interpretation Comments SODIUM (BEAKER) 135 meq/L 136-145 L (test code = 381) POTASSIUM (BEAKER) 4.9 meq/L 3.5-5.1 (test code = 379) CHLORIDE (BEAKER) 102 meq/L 98-107 (test code = 382) CO2 (BEAKER) (test 24 meq/L 22-29 code = 355) BLOOD UREA NITROGEN 50 mg/dL 7-21 H (BEAKER) (test code = 354) CREATININE (BEAKER) 5.68 mg/dL 0.57-1.25 H (test code = 358) GLUCOSE RANDOM 82 mg/dL 70-105 (BEAKER) (test code = 652) CALCIUM (BEAKER) 8.6 mg/dL 8.4-10.2 (test code = 697) EGFR (BEAKER) (test 13 mL/min/1.73 ESTIMA ARI GFR IS code = 1092) sq m NOT ACCURATE CREATININE CLEARANCE IN PREDICTING GLOMERULAR FILTRATION RATE . ESTIMATED GFR I S NOT APPLICABLE FOR DIALYSIS PATIEN TS. Stock Driver ID - KENNETH [id number] 06:57:00 Test Item Value Reference Range Interpretation Comments MAGNESIUM (BEAKER) (test code = 2.0 mg/dL 1.6-2.6 627) Stock Driver ID - KENNETH [id number] 06:57:00 Test Item Value Reference Range Interpretation Comments PHOSPHORUS (BEAKER) (test code = 6.2 mg/dL 2.3-4.7 H 604) Stock Driver ID Doretha COOPER WPROTHROMBIN [id number] 06:18:00 Test Item Value Reference Range Interpretation Comments PROTIME (BEAKER) 25.8 seconds 11.9-14.2 H (test code = 759) INR (BEAKER) (test 2.39 See_Comment [Automat ed message] code = 370) The system Umeng generated this result transmitted ref erence range: <=5.90. The reference range was not used to int erpret this result as normal/abnormal . RECOMMENDED COUMADIN/WARFARIN INR THERAPY RANGESSTANDARD DOSE: 2.0 - 3.0 Includes: PROPHYLAXIS forvenous thrombosis, systemic embolization; TREATMENT for venous thrombosis and/or pulmonary embolus.HIGH RISK: Target INR is 2.5-3.5 for patients with mechanical heart valves.CALCIUM, [id number] 06:05:00 Test Item Value Reference Range Interpretation Comments CALCIUM IONIZED (BEAKER) (test 1.17 mmol/L 1.12-1.27 code = 698) PH, BLOOD (BEAKER) (test code = 7.39 6670) CBC W/PLT COUNT & AUTO [id number] 05:52:00 Test Item Value Reference Range Interpretation Comments WHITE BLOOD CELL COUNT (BEAKER) 6.9 K/ L 3.5-10.5 (test code = 775) RED BLOOD CELL COUNT (BEAKER) 2.60 M/ L 4.63-6.08 L (test code = 761) HEMOGLOBIN (BEAKER) (test code = 7.7 GM/DL 13.7-17.5 L 410) HEMATOCRIT (BEAKER) (test code = 23.9 % 40.1-51.0 L 411) MEAN CORPUSCULAR VOLUME (BEAKER) 91.9 fL 79.0-92.2 (test code = 753) MEAN CORPUSCULAR HEMOGLOBIN 29.6 pg 25.7-32.2 (BEAKER) (test code = 751) MEAN CORPUSCULAR HEMOGLOBIN CONC 32.2 GM/DL 32.3-36.5 L (BEAKER) (test code = 752) RED CELL DISTRIBUTION WIDTH 16.7 % 11.6-14.4 H (BEAKER) (test code = 412) PLATELET COUNT (BEAKER) (test 146 K/CU MM 150-450 L code = 756) MEAN PLATELET VOLUME (BEAKER) 9.6 fL 9.4-12.4 (test code = 754) NUCLEATED RED BLOOD CELLS 0 /100 WBC 0-0 (BEAKER) (test code = 413) NEUTROPHILS RELATIVE PERCENT 70 % (BEAKER) (test code = 429) LYMPHOCYTES RELATIVE PERCENT 15 % (BEAKER) (test code = 430) MONOCYTES RELATIVE PERCENT 10 % (BEAKER) (test code = 431) EOSINOPHILS RELATIVE PERCENT 4 % (BEAKER) (test code = 432) BASOPHILS RELATIVE PERCENT 1 % (BEAKER) (test code = 437) NEUTROPHILS ABSOLUTE COUNT 4.84 K/ L 1.78-5.38 (BEAKER) (test code = 670) LYMPHOCYTES ABSOLUTE COUNT 1.03 K/ L 1.32-3.57 L (BEAKER) (test code = 414) MONOCYTES ABSOLUTE COUNT (BEAKER) 0.68 K/ L 0.30-0.82 (test code = 415) EOSINOPHILS ABSOLUTE COUNT 0.26 K/ L 0.04-0.54 (BEAKER) (test code = 416) BASOPHILS ABSOLUTE COUNT (BEAKER) 0.06 K/ L 0.01-0.08 (test code = 417) IMMATURE GRANULOCYTES-RELATIVE 1 % 0-1 PERCENT (BEAKER) (test code = 2801) POCT-GLUCOSE [id number] 20:40:00 Test Item Value Reference Range Interpretation Comments POC-GLUCOSE METER 94 mg/dL 70-110 : Notified RN/MD: TESTED (BEAKER) (test code = AT [facility] 67[address] [facility] 1538) [facility], [address]: Stock Driver/Techni won ID = [id number] for MICHELLE DAMIAN POCT-GLUCOSE [id number] 18:06:00 Test Item Value Reference Range Interpretation Comments POC-GLUCOSE METER 114 mg/dL 70-110 H : TESTED A T [facility] 6720 (BEAKER) (test code = [facility], 1538) [address]: Stock Driver/Techni won ID = [id number] for Kendy Sparrow HEMOGLOBIN AND [id number] 13:01:00 Test Item Value Reference Range Interpretation Comments HEMOGLOBIN (BEAKER) (test code = 8.7 GM/DL 13.7-17.5 L 410) HEMATOCRIT (BEAKER) (test code = 27.0 % 40.1-51.0 L 411) Stock Driver ID - 6000POCT-GLUCOSE [id number] 11:48:00 Test Item Value Reference Range Interpretation Comments POC-GLUCOSE METER 96 mg/dL 70-110 : TESTED A T [facility] 6720 (BEAKER) (test code = [facility], 1538) [address]: Stock Driver/Techni won ID = [id number] for Bent on, Gladys [id number] 10:57:00 Test Item Value Reference Range Interpretation Comments HAPTOGLOBIN (BEAKER) (test code = < mg/dL 14-258 L 366) Stock Driver ID - AAHAMIDPLASMA FREE [id number] 10:29:00 Test Item Value Reference Range Interpretation Comments HEMOGLOBIN PLASMA (BEAKER) (test 20.0 mg/dl 0.0-30.0 code = 1054) HEPATIC FUNCTION [id number] 10:21:00 Test Item Value Reference Range Interpretation Comments TOTAL PROTEIN (BEAKER) (test code = 5.4 gm/dL 6.0-8.3 L 770) ALBUMIN (BEAKER) (test code = 1145) 1.9 g/dL 3.5-5.0 L BILIRUBIN TOTAL (BEAKER) (test code 0.4 mg/dL 0.2-1.2 = 377) BILIRUBIN DIRECT (BEAKER) (test 0.2 mg/dL 0.1-0.5 code = 706) ALKALINE PHOSPHATASE (BEAKER) (test 127 U/L 40-150 code = 346) AST (SGOT) (BEAKER) (test code = 46 U/L 5-34 H 353) ALT (SGPT) (BEAKER) (test code = 42 U/L 6-55 347) Stock Driver ID - KENNETH MADERAAD, CHEST, 1 VIEW, NON [id number] 07:07:00Reason for exam:->intubatedShould this be performed at the bedside?->Yes [facility] : 1975 Sex: MFINAL REPORT RAD, CHEST, 1 VIEW, NON DEPT INDICATION: intubated TESFAYE RISON: Prior day's exam FINDINGS: Portable frontal view of the chest. IMPRESSION: Support Lines: Dialysis catheter tip overlies right atrium. Lungs and pleura: Bilateral lower lobe airspace diseaseis increased compared to prior exam concerning for worsening volume overload, or, possibly, worsening infection. Lungs are again hypoinflated. No significant pneumothorax. Heart and mediastinum: Stablecontours. Additional findings: None. Signed: Re Cantu Verified Date/Time: 02/12/2021 07:07:38 LACTATE DEHYDROGENASE (LDH) 2021-02-12 06:46:00 Test Item Value Reference Range Interpretation Comments LACTATE DEHYDROGENASE (BEAKER) (test 444 U/L 125-220 H code = 635) Stock Driver ID - KENNETH WBASIC METABOLIC [id number] 05:03:00 Test Item Value Reference Range Interpretation Comments SODIUM (BEAKER) 136 meq/L 136-145 (test code = 381) POTASSIUM (BEAKER) 4.9 meq/L 3.5-5.1 (test code = 379) CHLORIDE (BEAKER) 102 meq/L 98-107 (test code = 382) CO2 (BEAKER) (test 24 meq/L 22-29 code = 355) BLOOD UREA NITROGEN 61 mg/dL 7-21 H (BEAKER) (test code = 354) CREATININE (BEAKER) 6.60 mg/dL 0.57-1.25 H (test code = 358) GLUCOSE RANDOM 103 mg/dL 70-105 (BEAKER) (test code = 652) CALCIUM (BEAKER) 8.7 mg/dL 8.4-10.2 (test code = 697) EGFR (BEAKER) (test 11 mL/min/1.73 ESTIMA ARI GFR IS code = 1092) sq m NOT ACCURATE CREATININE CLEARANCE IN PREDICTING GLOMERULAR FILTRATION RATE . ESTIMATED GFR I S NOT APPLICABLE FOR DIALYSIS PATIEN TS. Stock Driver ID - KENNETH [id number] 04:57:00 Test Item Value Reference Range Interpretation Comments MAGNESIUM (BEAKER) (test code = 2.1 mg/dL 1.6-2.6 627) Stock Driver ID - KENNETH [id number] 04:57:00 Test Item Value Reference Range Interpretation Comments PHOSPHORUS (BEAKER) (test code = 7.1 mg/dL 2.3-4.7 H 604) Stock Driver ID - KENNETH WCALCIUM, [id number] 04:35:00 Test Item Value Reference Range Interpretation Comments CALCIUM IONIZED (BEAKER) (test 1.09 mmol/L 1.12-1.27 L code = 698) PH, BLOOD (BEAKER) (test code = 7.37 1810) PROTHROMBIN [id number] 04:31:00 Test Item Value Reference Range Interpretation Comments PROTIME (BEAKER) 22.9 seconds 11.9-14.2 H (test code = 759) INR (BEAKER) (test 2.05 See_Comment [Automat ed message] code = 370) The system Umeng generated this result transmitted ref erence range: <=5.90. The reference range was not used to int erpret this result as normal/abnormal . RECOMMENDED COUMADIN/WARFARIN INR THERAPY RANGESSTANDARD DOSE: 2.0 - 3.0 Includes: PROPHYLAXIS forvenous thrombosis, systemic embolization; TREATMENT for venous thrombosis and/or pulmonary embolus.HIGH RISK: Target INR is 2.5-3.5 for patients with mechanical heart valves.CBC W/PLT COUNT & AUTO DIFFERENTIAL 2021-02-12 04:20:00 Test Item Value Reference Range Interpretation Comments WHITE BLOOD CELL COUNT (BEAKER) 7.8 K/ L 3.5-10.5 (test code = 775) RED BLOOD CELL COUNT (BEAKER) 2.59 M/ L 4.63-6.08 L (test code = 761) HEMOGLOBIN (BEAKER) (test code = 7.6 GM/DL 13.7-17.5 L 410) HEMATOCRIT (BEAKER) (test code = 23.6 % 40.1-51.0 L 411) MEAN CORPUSCULAR VOLUME (BEAKER) 91.1 fL 79.0-92.2 (test code = 753) MEAN CORPUSCULAR HEMOGLOBIN 29.3 pg 25.7-32.2 (BEAKER) (test code = 751) MEAN CORPUSCULAR HEMOGLOBIN CONC 32.2 GM/DL 32.3-36.5 L (BEAKER) (test code = 752) RED CELL DISTRIBUTION WIDTH 16.5 % 11.6-14.4 H (BEAKER) (test code = 412) PLATELET COUNT (BEAKER) (test 156 K/CU MM 150-450 code = 756) MEAN PLATELET VOLUME (BEAKER) 9.2 fL 9.4-12.4 L (test code = 754) NUCLEATED RED BLOOD CELLS 0 /100 WBC 0-0 (BEAKER) (test code = 413) NEUTROPHILS RELATIVE PERCENT 71 % (BEAKER) (test code = 429) LYMPHOCYTES RELATIVE PERCENT 14 % (BEAKER) (test code = 430) MONOCYTES RELATIVE PERCENT 10 % (BEAKER) (test code = 431) EOSINOPHILS RELATIVE PERCENT 4 % (BEAKER) (test code = 432) BASOPHILS RELATIVE PERCENT 1 % (BEAKER) (test code = 437) NEUTROPHILS ABSOLUTE COUNT 5.54 K/ L 1.78-5.38 H (BEAKER) (test code = 670) LYMPHOCYTES ABSOLUTE COUNT 1.10 K/ L 1.32-3.57 L (BEAKER) (test code = 414) MONOCYTES ABSOLUTE COUNT (BEAKER) 0.74 K/ L 0.30-0.82 (test code = 415) EOSINOPHILS ABSOLUTE COUNT 0.29 K/ L 0.04-0.54 (BEAKER) (test code = 416) BASOPHILS ABSOLUTE COUNT (BEAKER) 0.07 K/ L 0.01-0.08 (test code = 417) IMMATURE GRANULOCYTES-RELATIVE 1 % 0-1 PERCENT (BEAKER) (test code = 2801) POCT-GLUCOSE [id number] 21:06:00 Test Item Value Reference Range Interpretation Comments POC-GLUCOSE METER 108 mg/dL 70-110 : TESTED A T [facility] 6720 (BEAKER) (test code [facility], = 1538) [address]: Stock Driver/Techni won ID = [id number] for Moni szymanski (contract)Rola faustino LACTATE DEHYDROGENASE (LDH)2021-02-11 10:34:00 Test Item Value Reference Range Interpretation Comments LACTATE DEHYDROGENASE (BEAKER) (test 559 U/L 125-220 H code = 635) Stock Driver ID - AAHAMIDPOCT-GLUCOSE [id number] 07:41:00 Test Item Value Reference Range Interpretation Comments POC-GLUCOSE METER 86 mg/dL 70-110 : TESTED A T [facility] 6720 (BEAKER) (test code = [facility], 1538) [address]: Stock Driver/Techni won ID = [id number] for COSME NORMAN BASIC METABOLIC [id number] 06:26:00 Test Item Value Reference Range Interpretation Comments SODIUM (BEAKER) 133 meq/L 136-145 L (test code = 381) POTASSIUM (BEAKER) 4.8 meq/L 3.5-5.1 (test code = 379) CHLORIDE (BEAKER) 102 meq/L 98-107 (test code = 382) CO2 (BEAKER) (test 21 meq/L 22-29 L code = 355) BLOOD UREA NITROGEN 48 mg/dL 7-21 H (BEAKER) (test code = 354) CREATININE (BEAKER) 5.68 mg/dL 0.57-1.25 H (test code = 358) GLUCOSE RANDOM 97 mg/dL 70-105 (BEAKER) (test code = 652) CALCIUM (BEAKER) 8.5 mg/dL 8.4-10.2 (test code = 697) EGFR (BEAKER) (test 13 mL/min/1.73 ESTIMA ARI GFR IS code = 1092) sq m NOT ACCURATE CREATININE CLEARANCE IN PREDICTING GLOMERULAR FILTRATION RATE . ESTIMATED GFR I S NOT APPLICABLE FOR DIALYSIS PATIEN TS. Stock Driver ID - [id number] 06:07:00 Test Item Value Reference Range Interpretation Comments MAGNESIUM (BEAKER) (test code = 2.0 mg/dL 1.6-2.6 627) Stock Driver ID - [id number] 06:07:00 Test Item Value Reference Range Interpretation Comments PHOSPHORUS (BEAKER) (test code = 6.1 mg/dL 2.3-4.7 H 604) Stock Driver ID - DBRAD, CHEST, 1 VIEW, NON [id number] 05:49:00Reason for exam:- >intubatedShould this be performed at the bedside?->Yes [facility] : 1975 Sex: MFINAL REPORT RAD, CHEST, 1 VIEW, NON DEPT INDICATION: intubated TESFAYE RISON: Prior day's exam FINDINGS: Portable frontal view of the chest. IMPRESSION: Support Lines: Dialysis catheter tip overlies right atrium. Sternotomy wires. Lungs and pleura: Obscuration of lefthemidiaphragm concerning for small effusion. Unchanged bilateral airspace disease. No significant pne umothorax. Heart and mediastinum: Stable contours. Additional findings: None. Signed: Re Cantu Verified Date/Time: 02/11/2021 05:49:15 CBC W/PLT COUNT & AUTO [id number] 05:29:00 Test Item Value Reference Range Interpretation Comments WHITE BLOOD CELL COUNT (BEAKER) 7.9 K/ L 3.5-10.5 (test code = 775) RED BLOOD CELL COUNT (BEAKER) 2.84 M/ L 4.63-6.08 L (test code = 761) HEMOGLOBIN (BEAKER) (test code = 8.2 GM/DL 13.7-17.5 L 410) HEMATOCRIT (BEAKER) (test code = 25.9 % 40.1-51.0 L 411) MEAN CORPUSCULAR VOLUME (BEAKER) 91.2 fL 79.0-92.2 (test code = 753) MEAN CORPUSCULAR HEMOGLOBIN 28.9 pg 25.7-32.2 (BEAKER) (test code = 751) MEAN CORPUSCULAR HEMOGLOBIN CONC 31.7 GM/DL 32.3-36.5 L (BEAKER) (test code = 752) RED CELL DISTRIBUTION WIDTH 16.5 % 11.6-14.4 H (BEAKER) (test code = 412) PLATELET COUNT (BEAKER) (test 132 K/CU MM 150-450 L code = 756) MEAN PLATELET VOLUME (BEAKER) 9.9 fL 9.4-12.4 (test code = 754) NUCLEATED RED BLOOD CELLS 0 /100 WBC 0-0 (BEAKER) (test code = 413) NEUTROPHILS RELATIVE PERCENT 76 % (BEAKER) (test code = 429) LYMPHOCYTES RELATIVE PERCENT 12 % (BEAKER) (test code = 430) MONOCYTES RELATIVE PERCENT 7 % (BEAKER) (test code = 431) EOSINOPHILS RELATIVE PERCENT 4 % (BEAKER) (test code = 432) BASOPHILS RELATIVE PERCENT 1 % (BEAKER) (test code = 437) NEUTROPHILS ABSOLUTE COUNT 5.98 K/ L 1.78-5.38 H (BEAKER) (test code = 670) LYMPHOCYTES ABSOLUTE COUNT 0.92 K/ L 1.32-3.57 L (BEAKER) (test code = 414) MONOCYTES ABSOLUTE COUNT (BEAKER) 0.58 K/ L 0.30-0.82 (test code = 415) EOSINOPHILS ABSOLUTE COUNT 0.30 K/ L 0.04-0.54 (BEAKER) (test code = 416) BASOPHILS ABSOLUTE COUNT (BEAKER) 0.08 K/ L 0.01-0.08 (test code = 417) IMMATURE GRANULOCYTES-RELATIVE 1 % 0-1 PERCENT (BEAKER) (test code = 2801) POCT-GLUCOSE [id number] 21:00:00 Test Item Value Reference Range Interpretation Comments POC-GLUCOSE METER 137 mg/dL 70-110 H : TESTED A T [facility] 6720 (BEAKER) (test code = NORM Tenorio [facility], 1538) [address]: Stock Driver/Techni won ID = [id number] for Manuelito Chavez BASIC METABOLIC [id number] 17:01:00 Test Item Value Reference Range Interpretation Comments SODIUM (BEAKER) 137 meq/L 136-145 (test code = 381) POTASSIUM (BEAKER) 4.2 meq/L 3.5-5.1 (test code = 379) CHLORIDE (BEAKER) 102 meq/L 98-107 (test code = 382) CO2 (BEAKER) (test 25 meq/L 22-29 code = 355) BLOOD UREA NITROGEN 40 mg/dL 7-21 H (BEAKER) (test code = 354) CREATININE (BEAKER) 4.95 mg/dL 0.57-1.25 H (test code = 358) GLUCOSE RANDOM 122 mg/dL 70-105 H (BEAKER) (test code = 652) CALCIUM (BEAKER) 8.9 mg/dL 8.4-10.2 (test code = 697) EGFR (BEAKER) (test 16 mL/min/1.73 ESTIMA ARI GFR IS code = 1092) sq m NOT ACCURATE CREATININE CLEARANCE IN PREDICTING GLOMERULAR FILTRATION RATE . ESTIMATED GFR I S NOT APPLICABLE FOR DIALYSIS PATIEN TS. Stock Driver ID - [id number] 17:00:00 Test Item Value Reference Range Interpretation Comments POTASSIUM (BEAKER) (test code = 4.2 meq/L 3.5-5.1 379) [id number] 17:00:00 Test Item Value Reference Range Interpretation Comments MAGNESIUM (BEAKER) (test code = 2.0 mg/dL 1.6-2.6 627) Stock Driver ID - DBLACTATE DEHYDROGENASE (LDH)2021-02-10 17:00:00 Test Item Value Reference Range Interpretation Comments LACTATE DEHYDROGENASE (BEAKER) (test 506 U/L 125-220 H code = 635) Stock Driver ID - DBCBC W/PLT COUNT & AUTO [id number] 16:38:00 Test Item Value Reference Range Interpretation Comments WHITE BLOOD CELL COUNT (BEAKER) 8.5 K/ L 3.5-10.5 (test code = 775) RED BLOOD CELL COUNT (BEAKER) 3.08 M/ L 4.63-6.08 L (test code = 761) HEMOGLOBIN (BEAKER) (test code = 9.1 GM/DL 13.7-17.5 L 410) HEMATOCRIT (BEAKER) (test code = 27.2 % 40.1-51.0 L 411) MEAN CORPUSCULAR VOLUME (BEAKER) 88.3 fL 79.0-92.2 (test code = 753) MEAN CORPUSCULAR HEMOGLOBIN 29.5 pg 25.7-32.2 (BEAKER) (test code = 751) MEAN CORPUSCULAR HEMOGLOBIN CONC 33.5 GM/DL 32.3-36.5 (BEAKER) (test code = 752) RED CELL DISTRIBUTION WIDTH 16.1 % 11.6-14.4 H (BEAKER) (test code = 412) PLATELET COUNT (BEAKER) (test 186 K/CU MM 150-450 code = 756) MEAN PLATELET VOLUME (BEAKER) 9.1 fL 9.4-12.4 L (test code = 754) NUCLEATED RED BLOOD CELLS 0 /100 WBC 0-0 (BEAKER) (test code = 413) NEUTROPHILS RELATIVE PERCENT 75 % (BEAKER) (test code = 429) LYMPHOCYTES RELATIVE PERCENT 11 % (BEAKER) (test code = 430) MONOCYTES RELATIVE PERCENT 9 % (BEAKER) (test code = 431) EOSINOPHILS RELATIVE PERCENT 3 % (BEAKER) (test code = 432) BASOPHILS RELATIVE PERCENT 1 % (BEAKER) (test code = 437) NEUTROPHILS ABSOLUTE COUNT 6.43 K/ L 1.78-5.38 H (BEAKER) (test code = 670) LYMPHOCYTES ABSOLUTE COUNT 0.96 K/ L 1.32-3.57 L (BEAKER) (test code = 414) MONOCYTES ABSOLUTE COUNT (BEAKER) 0.73 K/ L 0.30-0.82 (test code = 415) EOSINOPHILS ABSOLUTE COUNT 0.29 K/ L 0.04-0.54 (BEAKER) (test code = 416) BASOPHILS ABSOLUTE COUNT (BEAKER) 0.08 K/ L 0.01-0.08 (test code = 417) IMMATURE GRANULOCYTES-RELATIVE 1 % 0-1 PERCENT (BEAKER) (test code = 2801) POCT-GLUCOSE [id number] 14:15:00 Test Item Value Reference Range Interpretation Comments POC-GLUCOSE METER 135 mg/dL 70-110 H : TESTED A T [facility] 6720 (BEAKER) (test code = [place], 1538) [address]: Stock Driver/Techni won ID = [id number] for Paige Russell [id number] 11:35:00 Test Item Value Reference Range Interpretation Comments PREALBUMIN (BEAKER) (test code = 20 mg/dL 14-45 586) Stock Driver ID - DBC-REACTIVE [id number] 10:53:00 Test Item Value Reference Range Interpretation Comments C-REACTIVE PROTEIN (BEAKER) (test 2.09 mg/dL 0.00-0.50 H code = 676) Stock Driver ID - DBRAD, CHEST, 1 VIEW, NON [id number] 07:13:00Reason for exam:- >intubatedShould this be performed at the bedside?->Yes [facility] : 1975 Sex: MFINAL REPORT RAD, CHEST, 1 VIEW, NON DEPT INDICATION: intubated TESFAYE RISON: Prior day's exam FINDINGS: Portable frontal view of the chest. IMPRESSION: Support Lines: Stable. Lungs and pleura: Unchanged interstitial, airspace, and pleural opacities. No pneumothorax.Heart and mediastinum: Stable contours. Stable surgical changes.Additional findings: None. Signed: Monico lindsay JR, Taye Taylor Verified Date/Time: 02/10/2021 07:13:47 Reading Location: [facility] Reading Room CALCIUM, [id number] 03:42:00 Test Item Value Reference Range Interpretation Comments CALCIUM IONIZED (BEAKER) (test 1.24 mmol/L 1.12-1.27 code = 698) PH, BLOOD (BEAKER) (test code = 7.40 1810) BASIC METABOLIC [id number] 03:33:00 Test Item Value Reference Range Interpretation Comments SODIUM (BEAKER) 135 meq/L 136-145 L (test code = 381) POTASSIUM (BEAKER) 5.0 meq/L 3.5-5.1 (test code = 379) CHLORIDE (BEAKER) 103 meq/L 98-107 (test code = 382) CO2 (BEAKER) (test 21 meq/L 22-29 L code = 355) BLOOD UREA NITROGEN 58 mg/dL 7-21 H (BEAKER) (test code = 354) CREATININE (BEAKER) 7.14 mg/dL 0.57-1.25 H (test code = 358) GLUCOSE RANDOM 92 mg/dL 70-105 (BEAKER) (test code = 652) CALCIUM (BEAKER) 9.6 mg/dL 8.4-10.2 (test code = 697) EGFR (BEAKER) (test 10 mL/min/1.73 ESTIMA ARI GFR IS code = 1092) sq m NOT ACCURATE CREATININE CLEARANCE IN PREDICTING GLOMERULAR FILTRATION RATE . ESTIMATED GFR I S NOT APPLICABLE FOR DIALYSIS PATIEN TS. Stock Driver ID - KENNETH [id number] 03:32:00 Test Item Value Reference Range Interpretation Comments MAGNESIUM (BEAKER) (test code = 2.3 mg/dL 1.6-2.6 627) Stock Driver ID - KENNETH [id number] 03:32:00 Test Item Value Reference Range Interpretation Comments PHOSPHORUS (BEAKER) (test code = 7.1 mg/dL 2.3-4.7 H 604) Stock Driver SHELBI COOPER WPROTHROMBIN TIME/[id number] 03:31:00 Test Item Value Reference Range Interpretation Comments PROTIME (BEAKER) 18.9 seconds 11.9-14.2 H (test code = 759) INR (BEAKER) (test 1.61 See_Comment [Automat ed message] code = 370) The system Umeng generated this result transmitted ref erence range: <=5.90. The reference range was not used to int erpret this result as normal/abnormal . RECOMMENDED COUMADIN/WARFARIN INR THERAPY RANGESSTANDARD DOSE: 2.0 - 3.0 Includes: PROPHYLAXIS forvenous thrombosis, systemic embolization; TREATMENT for venous thrombosis and/or pulmonary embolus.HIGH RISK: Target INR is 2.5-3.5 for patients with mechanical heart valves.CBC W/PLT COUNT & AUTO DIFFERENTIAL 2021-02-10 03:17:00 Test Item Value Reference Range Interpretation Comments WHITE BLOOD CELL COUNT (BEAKER) 10.1 K/ L 3.5-10.5 (test code = 775) RED BLOOD CELL COUNT (BEAKER) 3.09 M/ L 4.63-6.08 L (test code = 761) HEMOGLOBIN (BEAKER) (test code = 9.0 GM/DL 13.7-17.5 L 410) HEMATOCRIT (BEAKER) (test code = 26.9 % 40.1-51.0 L 411) MEAN CORPUSCULAR VOLUME (BEAKER) 87.1 fL 79.0-92.2 (test code = 753) MEAN CORPUSCULAR HEMOGLOBIN 29.1 pg 25.7-32.2 (BEAKER) (test code = 751) MEAN CORPUSCULAR HEMOGLOBIN CONC 33.5 GM/DL 32.3-36.5 (BEAKER) (test code = 752) RED CELL DISTRIBUTION WIDTH 16.3 % 11.6-14.4 H (BEAKER) (test code = 412) PLATELET COUNT (BEAKER) (test 169 K/CU MM 150-450 code = 756) MEAN PLATELET VOLUME (BEAKER) 8.4 fL 9.4-12.4 L (test code = 754) NUCLEATED RED BLOOD CELLS 0 /100 WBC 0-0 (BEAKER) (test code = 413) NEUTROPHILS RELATIVE PERCENT 77 % (BEAKER) (test code = 429) LYMPHOCYTES RELATIVE PERCENT 11 % (BEAKER) (test code = 430) MONOCYTES RELATIVE PERCENT 8 % (BEAKER) (test code = 431) EOSINOPHILS RELATIVE PERCENT 3 % (BEAKER) (test code = 432) BASOPHILS RELATIVE PERCENT 1 % (BEAKER) (test code = 437) NEUTROPHILS ABSOLUTE COUNT 7.70 K/ L 1.78-5.38 H (BEAKER) (test code = 670) LYMPHOCYTES ABSOLUTE COUNT 1.12 K/ L 1.32-3.57 L (BEAKER) (test code = 414) MONOCYTES ABSOLUTE COUNT (BEAKER) 0.79 K/ L 0.30-0.82 (test code = 415) EOSINOPHILS ABSOLUTE COUNT 0.29 K/ L 0.04-0.54 (BEAKER) (test code = 416) BASOPHILS ABSOLUTE COUNT (BEAKER) 0.11 K/ L 0.01-0.08 H (test code = 417) IMMATURE GRANULOCYTES-RELATIVE 0 % 0-1 PERCENT (BEAKER) (test code = 2801) POCT-GLUCOSE [id number] 22:04:00 Test Item Value Reference Range Interpretation Comments POC-GLUCOSE METER 125 mg/dL 70-110 H : TESTED A T [facility] 6720 (BEAKER) (test code = [facility], 153) [id number]: Stock Driver/Techni won ID = [id number] for September POCT-GLUCOSE [id number] 16:29:00 Test Item Value Reference Range Interpretation Comments POC-GLUCOSE METER 112 mg/dL 70-110 H : TESTED A T [facility] 6720 (BEAKER) (test code = [facility], 153) 00005: Stock Driver/Techni won ID = [id number] for DELMER SHANTHIMARSHALLTHOMAS POCT-GLUCOSE [id number] 11:26:00 Test Item Value Reference Range Interpretation Comments POC-GLUCOSE METER 97 mg/dL 70-110 : TESTED A T [facility] 6720 (BEAKER) (test code = [facility], 1538) 76432: Stock Driver/Techni won ID = [id number] for DIPESH Rubi, THOMAS POCT-GLUCOSE [id number] 07:49:00 Test Item Value Reference Range Interpretation Comments POC-GLUCOSE METER 82 mg/dL 70-110 : TESTED A T [facility] 6720 (BEAKER) (test code = [facility] [place], 1538) 82[address]: Stock Driver/Techni won ID = [id number] for THOMAS STEVENS BASIC METABOLIC [id number] 05:07:00 Test Item Value Reference Range Interpretation Comments SODIUM (BEAKER) 135 meq/L 136-145 L (test code = 381) POTASSIUM (BEAKER) 4.4 meq/L 3.5-5.1 (test code = 379) CHLORIDE (BEAKER) 104 meq/L 98-107 (test code = 382) CO2 (BEAKER) (test 23 meq/L 22-29 code = 355) BLOOD UREA NITROGEN 44 mg/dL 7-21 H (BEAKER) (test code = 354) CREATININE (BEAKER) 5.67 mg/dL 0.57-1.25 H (test code = 358) GLUCOSE RANDOM 99 mg/dL 70-105 (BEAKER) (test code = 652) CALCIUM (BEAKER) 8.7 mg/dL 8.4-10.2 (test code = 697) EGFR (BEAKER) (test 13 mL/min/1.73 ESTIMA ARI GFR IS code = 1092) sq m NOT ACCURATE CREATININE CLEARANCE IN PREDICTING GLOMERULAR FILTRATION RATE . ESTIMATED GFR I S NOT APPLICABLE FOR DIALYSIS PATIEN TS. Stock Driver ID - VALDEZ [id number] 05:01:00 Test Item Value Reference Range Interpretation Comments MAGNESIUM (BEAKER) (test code = 2.2 mg/dL 1.6-2.6 627) Stock Driver ID - VALDEZ [id number] 05:01:00 Test Item Value Reference Range Interpretation Comments PHOSPHORUS (BEAKER) (test code = 5.4 mg/dL 2.3-4.7 H 604) Stock Driver ID - VALDEZ MCALCIUM, [id number] 04:47:00 Test Item Value Reference Range Interpretation Comments CALCIUM IONIZED (BEAKER) (test 1.22 mmol/L 1.12-1.27 code = 698) PH, BLOOD (BEAKER) (test code = 7.42 1810) PROTHROMBIN [id number] 04:38:00 Test Item Value Reference Range Interpretation Comments PROTIME (BEAKER) 18.8 seconds 11.9-14.2 H (test code = 759) INR (BEAKER) (test 1.60 See_Comment [Automat ed message] code = 370) The system Umeng generated this result transmitted ref erence range: <=5.90. The reference range was not used to int erpret this result as normal/abnormal . RECOMMENDED COUMADIN/WARFARIN INR THERAPY RANGESSTANDARD DOSE: 2.0 - 3.0 Includes: PROPHYLAXIS forvenous thrombosis, systemic embolization; TREATMENT for venous thrombosis and/or pulmonary embolus.HIGH RISK: Target INR is 2.5-3.5 for patients with mechanical heart valves.CBC W/PLT COUNT & AUTO DIFFERENTIAL 2021-02-09 04:30:00 Test Item Value Reference Range Interpretation Comments WHITE BLOOD CELL COUNT (BEAKER) 8.4 K/ L 3.5-10.5 (test code = 775) RED BLOOD CELL COUNT (BEAKER) 2.56 M/ L 4.63-6.08 L (test code = 761) HEMOGLOBIN (BEAKER) (test code = 7.4 GM/DL 13.7-17.5 L 410) HEMATOCRIT (BEAKER) (test code = 22.9 % 40.1-51.0 L 411) MEAN CORPUSCULAR VOLUME (BEAKER) 89.5 fL 79.0-92.2 (test code = 753) MEAN CORPUSCULAR HEMOGLOBIN 28.9 pg 25.7-32.2 (BEAKER) (test code = 751) MEAN CORPUSCULAR HEMOGLOBIN CONC 32.3 GM/DL 32.3-36.5 (BEAKER) (test code = 752) RED CELL DISTRIBUTION WIDTH 16.5 % 11.6-14.4 H (BEAKER) (test code = 412) PLATELET COUNT (BEAKER) (test 179 K/CU MM 150-450 code = 756) MEAN PLATELET VOLUME (BEAKER) 9.1 fL 9.4-12.4 L (test code = 754) NUCLEATED RED BLOOD CELLS 0 /100 WBC 0-0 (BEAKER) (test code = 413) NEUTROPHILS RELATIVE PERCENT 76 % (BEAKER) (test code = 429) LYMPHOCYTES RELATIVE PERCENT 11 % (BEAKER) (test code = 430) MONOCYTES RELATIVE PERCENT 7 % (BEAKER) (test code = 431) EOSINOPHILS RELATIVE PERCENT 3 % (BEAKER) (test code = 432) BASOPHILS RELATIVE PERCENT 1 % (BEAKER) (test code = 437) NEUTROPHILS ABSOLUTE COUNT 6.42 K/ L 1.78-5.38 H (BEAKER) (test code = 670) LYMPHOCYTES ABSOLUTE COUNT 0.94 K/ L 1.32-3.57 L (BEAKER) (test code = 414) MONOCYTES ABSOLUTE COUNT (BEAKER) 0.59 K/ L 0.30-0.82 (test code = 415) EOSINOPHILS ABSOLUTE COUNT 0.29 K/ L 0.04-0.54 (BEAKER) (test code = 416) BASOPHILS ABSOLUTE COUNT (BEAKER) 0.10 K/ L 0.01-0.08 H (test code = 417) IMMATURE GRANULOCYTES-RELATIVE 1 % 0-1 PERCENT (BEAKER) (test code = 2801) RAD, CHEST, 1 VIEW, NON [id number] 04:04:00Reason for exam:- >intubatedShould this be performed at the bedside?->Yes [facility] : 1975 Sex: MFINAL REPORT RAD, CHEST, 1 VIEW, NON DEPT INDICATION: intubated TESFAYE RISON: Prior day's exam FINDINGS: Portable frontal view of the chest. IMPRESSION: Support Lines: Stable. Lungs and pleura: Unchanged bilateral airspace and pleural opacities. No pneumothorax.Heart and mediastinum: Stable contours and postsurgical changes.Additional findings: None. Signed: Pedro Krishnan [facility] SYSTEMeport Verified Date/Time: 02/09/2021 04:04:14 POCT-GLUCOSE [id number] 22:18:00 Test Item Value Reference Range Interpretation Comments POC-GLUCOSE METER 98 mg/dL 70-110 : TESTED A T [facility] 6720 (BEAKER) (test code = [facility], 1538) 69704: Stock Driver/Techni won ID = [id number] for MESERET DELVALLESeptember [id number] 19:37:00 Test Item Value Reference Range Interpretation Comments MAGNESIUM (BEAKER) 1.9 mg/dL 1.6-2.6 Specimen slightly (test code = 627) hemolyzed Stock Driver ID - BSHEMOGLOBIN AND [id number] 19:16:00 Test Item Value Reference Range Interpretation Comments HEMOGLOBIN (BEAKER) (test code = 8.3 GM/DL 13.7-17.5 L 410) HEMATOCRIT (BEAKER) (test code = 24.9 % 40.1-51.0 L 411) Stock Driver ID - [id number]-GLUCOSE [id number] 17:27:00 Test Item Value Reference Range Interpretation Comments POC-GLUCOSE METER 82 mg/dL 70-110 : TESTED A T [facility] 6720 (BEAKER) (test code = [facility], 1538) 25298: Stock Driver/Techni won ID = [id number] for RONAL BROCK [id number] 15:52:00 Test Item Value Reference Range Interpretation Comments FERRITIN (BEAKER) (test code = 2985.27 ng/mL 5.00-275.00 H 361) Stock Driver ID - BSOperator ID - BSIRON, TIBC, % SAT. (WITHOUT FERRITIN)2021-02-08 14:59:00 Test Item Value Reference Range Interpretation Comments IRON (BEAKER) (test code = 547) 68.0 ug/dL 40.0-160.0 TOTAL IRON BINDING CAPACITY 136 ug/dL 250-450 L (BEAKER) (test code = 769) IRON % SATURATION (2) (BEAKER) 50 % 20-55 (test code = 2590) Stock Driver ID - BSPROTHROMBIN TIME/[id number] 14:45:00 Test Item Value Reference Range Interpretation Comments PROTIME (BEAKER) 19.5 seconds 11.9-14.2 H (test code = 759) INR (BEAKER) (test 1.67 See_Comment [Automat ed message] code = 370) The system Umeng generated this result transmitted ref erence range: <=5.90. The reference range was not used to int erpret this result as normal/abnormal . RECOMMENDED COUMADIN/WARFARIN INR THERAPY RANGESSTANDARD DOSE: 2.0 - 3.0 Includes: PROPHYLAXIS forvenous thrombosis, systemic embolization; TREATMENT for venous thrombosis and/or pulmonary embolus.HIGH RISK: Target INR is 2.5-3.5 for patients with mechanical heart valves.POCT-GLUCOSE [id number] 11:26:00 Test Item Value Reference Range Interpretation Comments POC-GLUCOSE METER 112 mg/dL 70-110 H : TESTED A T [facility] 6720 (BEAKER) (test code = [facility], 1538) 69029: Stock Driver/Techni won ID = [id number] for BETH PEREZAN POCT-GLUCOSE [id number] 07:47:00 Test Item Value Reference Range Interpretation Comments POC-GLUCOSE METER 75 mg/dL 70-110 : TESTED A T [facility] 6720 (BEAKER) (test code = [employer] [place] [facility], 1538) 68323: Stock Driver/Techni won ID = [id number] for RONAL BROCK RAD, CHEST, 1 VIEW, NON [id number] 07:43:00Reason for exam:- >intubatedShould this be performed at the bedside?->Yes [facility] : 1975 Sex: MFINAL REPORT RAD, CHEST, 1 VIEW, NON DEPT INDICATION: intubated TESFAYE RISON: Prior day's exam FINDINGS: Portable frontal view of the chest. IMPRESSION: Support Lines: Stable. Lungs and pleura: Worsening interstitial edema and effusions. No pneumothorax.Heart and mediastinum: Stable contours. Stable surgical changes.Additional findings: None. Signed: JR Tate Robert MDReport Verified Date/Time: 02/08/2021 07:43:26 Reading Location: [facility] Reading Room BASIC METABOLIC [id number] 04:08:00 Test Item Value Reference Range Interpretation Comments SODIUM (BEAKER) 133 meq/L 136-145 L (test code = 381) POTASSIUM (BEAKER) 4.8 meq/L 3.5-5.1 (test code = 379) CHLORIDE (BEAKER) 102 meq/L 98-107 (test code = 382) CO2 (BEAKER) (test 20 meq/L 22-29 L code = 355) BLOOD UREA NITROGEN 50 mg/dL 7-21 H (BEAKER) (test code = 354) CREATININE (BEAKER) 6.64 mg/dL 0.57-1.25 H (test code = 358) GLUCOSE RANDOM 99 mg/dL 70-105 (BEAKER) (test code = 652) CALCIUM (BEAKER) 8.5 mg/dL 8.4-10.2 (test code = 697) EGFR (BEAKER) (test 11 mL/min/1.73 ESTIMA ARI GFR IS code = 1092) sq m NOT ACCURATE CREATININE CLEARANCE IN PREDICTING GLOMERULAR FILTRATION RATE . ESTIMATED GFR I S NOT APPLICABLE FOR DIALYSIS PATIEN TS. Stock Driver ID - PIRAFY [id number] 04:07:00 Test Item Value Reference Range Interpretation Comments MAGNESIUM (BEAKER) (test code = 1.7 mg/dL 1.6-2.6 627) Stock Driver ID - LINA [id number] 04:07:00 Test Item Value Reference Range Interpretation Comments PHOSPHORUS (BEAKER) (test code = 6.1 mg/dL 2.3-4.7 H 604) Stock Driver ID - PIRAFY LCALCIUM, [id number] 04:02:00 Test Item Value Reference Range Interpretation Comments CALCIUM IONIZED (BEAKER) (test 1.19 mmol/L 1.12-1.27 code = 698) PH, BLOOD (BEAKER) (test code = 7.40 1810) CBC W/PLT COUNT & AUTO [id number] 03:56:00 Test Item Value Reference Range Interpretation Comments WHITE BLOOD CELL COUNT (BEAKER) 9.1 K/ L 3.5-10.5 (test code = 775) RED BLOOD CELL COUNT (BEAKER) 2.52 M/ L 4.63-6.08 L (test code = 761) HEMOGLOBIN (BEAKER) (test code = 7.4 GM/DL 13.7-17.5 L 410) HEMATOCRIT (BEAKER) (test code = 22.6 % 40.1-51.0 L 411) MEAN CORPUSCULAR VOLUME (BEAKER) 89.7 fL 79.0-92.2 (test code = 753) MEAN CORPUSCULAR HEMOGLOBIN 29.4 pg 25.7-32.2 (BEAKER) (test code = 751) MEAN CORPUSCULAR HEMOGLOBIN CONC 32.7 GM/DL 32.3-36.5 (BEAKER) (test code = 752) RED CELL DISTRIBUTION WIDTH 16.0 % 11.6-14.4 H (BEAKER) (test code = 412) PLATELET COUNT (BEAKER) (test 198 K/CU MM 150-450 code = 756) MEAN PLATELET VOLUME (BEAKER) 8.8 fL 9.4-12.4 L (test code = 754) NUCLEATED RED BLOOD CELLS 0 /100 WBC 0-0 (BEAKER) (test code = 413) NEUTROPHILS RELATIVE PERCENT 80 % (BEAKER) (test code = 429) LYMPHOCYTES RELATIVE PERCENT 9 % (BEAKER) (test code = 430) MONOCYTES RELATIVE PERCENT 6 % (BEAKER) (test code = 431) EOSINOPHILS RELATIVE PERCENT 3 % (BEAKER) (test code = 432) BASOPHILS RELATIVE PERCENT 1 % (BEAKER) (test code = 437) NEUTROPHILS ABSOLUTE COUNT 7.31 K/ L 1.78-5.38 H (BEAKER) (test code = 670) LYMPHOCYTES ABSOLUTE COUNT 0.81 K/ L 1.32-3.57 L (BEAKER) (test code = 414) MONOCYTES ABSOLUTE COUNT (BEAKER) 0.57 K/ L 0.30-0.82 (test code = 415) EOSINOPHILS ABSOLUTE COUNT 0.27 K/ L 0.04-0.54 (BEAKER) (test code = 416) BASOPHILS ABSOLUTE COUNT (BEAKER) 0.08 K/ L 0.01-0.08 (test code = 417) IMMATURE GRANULOCYTES-RELATIVE 1 % 0-1 PERCENT (BEAKER) (test code = 2801) PROTHROMBIN [id number] 03:52:00 Test Item Value Reference Range Interpretation Comments PROTIME (BEAKER) 19.3 seconds 11.9-14.2 H (test code = 759) INR (BEAKER) (test 1.65 See_Comment [Automat ed message] code = 370) The system Umeng generated this result transmitted ref erence range: <=5.90. The reference range was not used to int erpret this result as normal/abnormal . RECOMMENDED COUMADIN/WARFARIN INR THERAPY RANGESSTANDARD DOSE: 2.0 - 3.0 Includes: PROPHYLAXIS forvenous thrombosis, systemic embolization; TREATMENT for venous thrombosis and/or pulmonary embolus.HIGH RISK: Target INR is 2.5-3.5 for patients with mechanical heart valves.POCT-GLUCOSE [id number] 22:32:00 Test Item Value Reference Range Interpretation Comments POC-GLUCOSE METER 93 mg/dL 70-110 : TESTED A T [facility] 6720 (BEAKER) (test code = [employer] [facility], 1538) 65124: Stock Driver/Techni won ID = [id number] for MESERET DELVALLESeptember POCT-GLUCOSE [id number] 17:21:00 Test Item Value Reference Range Interpretation Comments POC-GLUCOSE METER 81 mg/dL 70-110 : TESTED A T [facility] 6720 (BEAKER) (test code = [employer] [facility], 1538) 74930: Stock Driver/Techni won ID = [id number] for RONAL BROCK HEMOGLOBIN AND [id number] 13:35:00 Test Item Value Reference Range Interpretation Comments HEMOGLOBIN (BEAKER) (test code = 7.1 GM/DL 13.7-17.5 L 410) HEMATOCRIT (BEAKER) (test code = 21.6 % 40.1-51.0 L 411) Stock Driver ID - [id number]-GLUCOSE [id number] 12:35:00 Test Item Value Reference Range Interpretation Comments POC-GLUCOSE METER 90 mg/dL 70-110 : TESTED Elias Dominguez [facility] 6720 (TAMARA) (test code = [facility], 1538) 589[address]: Stock Driver/Techni won ID = [id number] for RONAL BROCK CT, BRAIN, WITHOUT [id number] 11:47:00Reason for exam:->lt hemiparesis What is the patient's sedation requirement?->No Sedation [facility] : 1975 Sex: MAddendum BeginsREPORT STATUS:A Addendum: Questionable subcentimeter region of infarction within the right inferior frontal lobe (axial image 19), not seen on prior exam.Findings discussed with ordering provider by Dr. Cantu at time of this addendum. Signed: Re Cantu MDReport Verified Date/Time: 02/07/2021 11:47:29 Reading Location: [facility] C013V Neuro Reading RoomAddendum EndsFINAL REPORT CT, BRAIN, WITHOUT CONTRAST CLINICAL INDICATION: Neuro deficit, acute, persistent or progressinglt hemiparesis COMPARISON: 01/29/2021 TECHNIQUE: Noncontrast axial CT imaging of the brain and skull. DOSE REDUCTION: Dose modulation, iterative reconstruction, and/or weight-based adjustment of the mA/kV was utilized to reduce the radiation dose to as low as reasonably achievable. FINDINGS:There is some residual subarachnoid hemorrhage within the left parietal sulci, not significantly increased from prior exam. Although hemorrhage appears linear onsagittal and coronal series, axial images demonstrate questionable underlying hemorrhagic lesion, which may represent residual contusion, small hemorrhagic infarct and/or hemorrhagic metastasis. No newintracranial hemorrhage. 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 Scattered foci of hypoattenuation are present throughout the periventricular and subcortical white matter, and, although nonspecific by imaging, statistically represent mild chronic microvascular ischemic changes in this age group. No hydrocephalus. Orbits are within normal limits. No obstructiveparanasal sinus disease. IMPRESSION: There is some residual subarachnoid hemorrhage within the left parietal sulci, not significantly increased from prior exam. Although hemorrhage appears linear on sagittal and coronal series, axial images demonstrate questionable underlying hemorrhagic lesion, which may represent residual contusion, small hemorrhagic infarct and/or hemorrhagic metastasis. MRI brain with and without contrast is suggested when clinically feasible for further assessment. No new intracranial hemorrhage. If there is persistent clinical concern for intracranial pathology, MR examination is recommended for further characterization. Signed: Re Cantu MDReport Verified Date/Time:02/07/2021 10:56:22 Reading Location: [address] Neuro Reading Room POCT-GLUCOSE METER 2021-02-07 07:42:00 Test Item Value Reference Range Interpretation Comments POC-GLUCOSE METER 104 mg/dL 70-110 : TESTED A T [facility] 6720 (BEAKER) (test code = [facility] [place] [facility], 1538) 17534: Stock Driver/Techni won ID = [id number] for LACY Karis RONAL RAD, CHEST, 1 VIEW, NON [id number] 07:24:00Reason for exam:- >intubatedShould this be performed at the bedside?->Yes [facility] : 1975 Sex: MFINAL REPORT RAD, CHEST, 1 VIEW, NON DEPT INDICATION: intubated TESFAYE RISON: Prior day's exam FINDINGS: Portable frontal view of the chest. IMPRESSION: Support Lines: Stable. Lungs and pleura: Improved but persistent interstitial edema. No pneumothorax.Heart and mediastinum: Stable contours. Stable surgical changes.Additional findings: None. Signed: JR Bebeto, Taye Taylor Verified Date/Time: 02/07/2021 07:24:30 Reading Location: [facility] Reading Room CALCIUM, [id number] 05:07:00 Test Item Value Reference Range Interpretation Comments CALCIUM IONIZED (BEAKER) (test 1.17 mmol/L 1.12-1.27 code = 698) PH, BLOOD (BEAKER) (test code = 7.45 1810) BASIC METABOLIC [id number] 03:45:00 Test Item Value Reference Range Interpretation Comments SODIUM (BEAKER) 136 meq/L 136-145 (test code = 381) POTASSIUM (BEAKER) 4.1 meq/L 3.5-5.1 (test code = 379) CHLORIDE (BEAKER) 102 meq/L 98-107 (test code = 382) CO2 (BEAKER) (test 24 meq/L 22-29 code = 355) BLOOD UREA NITROGEN 36 mg/dL 7-21 H (BEAKER) (test code = 354) CREATININE (BEAKER) 5.28 mg/dL 0.57-1.25 H (test code = 358) GLUCOSE RANDOM 97 mg/dL 70-105 (BEAKER) (test code = 652) CALCIUM (BEAKER) 8.6 mg/dL 8.4-10.2 (test code = 697) EGFR (BEAKER) (test 14 mL/min/1.73 ESTIMA ARI GFR IS code = 1092) sq m NOT ACCURATE CREATININE CLEARANCE IN PREDICTING GLOMERULAR FILTRATION RATE . ESTIMATED GFR I S NOT APPLICABLE FOR DIALYSIS PATIEN TS. Stock Driver ID - VALDEZ [id number] 03:40:00 Test Item Value Reference Range Interpretation Comments MAGNESIUM (BEAKER) (test code = 1.7 mg/dL 1.6-2.6 627) Stock Driver ID - VALDEZ [id number] 03:40:00 Test Item Value Reference Range Interpretation Comments PHOSPHORUS (BEAKER) (test code = 4.9 mg/dL 2.3-4.7 H 604) Stock Driver ID - VALDEZ MPROTHROMBIN [id number] 03:29:00 Test Item Value Reference Range Interpretation Comments PROTIME (BEAKER) 18.4 seconds 11.9-14.2 H (test code = 759) INR (BEAKER) (test 1.55 See_Comment [Automat ed message] code = 370) The system Um[employer] generated this result transmitted ref erence range: <=5.90. The reference range was not used to int erpret this result as normal/abnormal . RECOMMENDED COUMADIN/WARFARIN INR THERAPY RANGESSTANDARD DOSE: 2.0 - 3.0 Includes: PROPHYLAXIS forvenous thrombosis, systemic embolization; TREATMENT for venous thrombosis and/or pulmonary embolus.HIGH RISK: Target INR is 2.5-3.5 for patients with mechanical heart valves.CBC W/PLT COUNT & AUTO DIFFERENTIAL 2021-02-07 03:13:00 Test Item Value Reference Range Interpretation Comments WHITE BLOOD CELL COUNT (BEAKER) 9.2 K/ L 3.5-10.5 (test code = 775) RED BLOOD CELL COUNT (BEAKER) 2.51 M/ L 4.63-6.08 L (test code = 761) HEMOGLOBIN (BEAKER) (test code = 7.4 GM/DL 13.7-17.5 L 410) HEMATOCRIT (BEAKER) (test code = 22.5 % 40.1-51.0 L 411) MEAN CORPUSCULAR VOLUME (BEAKER) 89.6 fL 79.0-92.2 (test code = 753) MEAN CORPUSCULAR HEMOGLOBIN 29.5 pg 25.7-32.2 (BEAKER) (test code = 751) MEAN CORPUSCULAR HEMOGLOBIN CONC 32.9 GM/DL 32.3-36.5 (BEAKER) (test code = 752) RED CELL DISTRIBUTION WIDTH 16.1 % 11.6-14.4 H (BEAKER) (test code = 412) PLATELET COUNT (BEAKER) (test 233 K/CU MM 150-450 code = 756) MEAN PLATELET VOLUME (BEAKER) 9.3 fL 9.4-12.4 L (test code = 754) NUCLEATED RED BLOOD CELLS 0 /100 WBC 0-0 (BEAKER) (test code = 413) NEUTROPHILS RELATIVE PERCENT 79 % (BEAKER) (test code = 429) LYMPHOCYTES RELATIVE PERCENT 10 % (BEAKER) (test code = 430) MONOCYTES RELATIVE PERCENT 7 % (BEAKER) (test code = 431) EOSINOPHILS RELATIVE PERCENT 3 % (BEAKER) (test code = 432) BASOPHILS RELATIVE PERCENT 1 % (BEAKER) (test code = 437) NEUTROPHILS ABSOLUTE COUNT 7.29 K/ L 1.78-5.38 H (BEAKER) (test code = 670) LYMPHOCYTES ABSOLUTE COUNT 0.93 K/ L 1.32-3.57 L (BEAKER) (test code = 414) MONOCYTES ABSOLUTE COUNT (BEAKER) 0.60 K/ L 0.30-0.82 (test code = 415) EOSINOPHILS ABSOLUTE COUNT 0.30 K/ L 0.04-0.54 (BEAKER) (test code = 416) BASOPHILS ABSOLUTE COUNT (BEAKER) 0.08 K/ L 0.01-0.08 (test code = 417) IMMATURE GRANULOCYTES-RELATIVE 0 % 0-1 PERCENT (BEAKER) (test code = 2801) FUNGUS CULTURE + [id number] 22:52:00 Test Item Value Reference Range Interpretation Comments CULTURE (BEAKER) (test No fungus isolated in code = 1095) 28 days FUNGUS SMEAR (BEAKER) No fungi seen (test code = 1406) POCT-GLUCOSE [id number] 16:41:00 Test Item Value Reference Range Interpretation Comments POC-GLUCOSE METER 97 mg/dL 70-110 : TESTED A T [facility] 6720 (BEAKER) (test code = NORM PARDO, 1538) 16781: Stock Driver/Techni won ID = [id number] for IVONE ZHAO POCT-GLUCOSE [id number] 11:40:00 Test Item Value Reference Range Interpretation Comments POC-GLUCOSE METER 102 mg/dL 70-110 : TESTED A T [facility] 6720 (BEAKER) (test code = NORM [place], 1538) 09152: Stock Driver/Techni won ID = [id number] for IVONE RIBEIRO HEPATIC FUNCTION [id number] 08:31:00 Test Item Value Reference Range Interpretation Comments TOTAL PROTEIN (BEAKER) (test code = 5.6 gm/dL 6.0-8.3 L 770) ALBUMIN (BEAKER) (test code = 1145) 2.1 g/dL 3.5-5.0 L BILIRUBIN TOTAL (BEAKER) (test code 0.5 mg/dL 0.2-1.2 = 377) BILIRUBIN DIRECT (BEAKER) (test 0.3 mg/dL 0.1-0.5 code = 706) ALKALINE PHOSPHATASE (BEAKER) (test 106 U/L 40-150 code = 346) AST (SGOT) (BEAKER) (test code = 33 U/L 5-34 353) ALT (SGPT) (BEAKER) (test code = 37 U/L 6-55 347) Stock Driver ID - VALDEZ CAROLD, CHEST, 1 VIEW, NON [id number] 07:58:00Reason for exam:->intubatedShould this be performed at the bedside?->Yes [facility] : 1975 Sex: MFINAL REPORT RAD, CHEST, 1 VIEW, NON DEPT INDICATION: intubated TESFAYE RISON: Prior day's exam FINDINGS: Portable frontal view of the chest. IMPRESSION: Support Lines: Stable. Lungs and pleura: Unchanged airspace and pleural opacities. No pneumothorax.Heart and mediastinum: Stable contours. Stable surgical changes.Additional findings: None. Signed: JR Tate Ro bert MDReport Verified Date/Time: 02/06/2021 07:58:22 Reading Location: [facility] Reading Room POCT-GLUCOSE [id number] 06:40:00 Test Item Value Reference Range Interpretation Comments POC-GLUCOSE METER 102 mg/dL 70-110 : TESTED A T [facility] 6720 (BEAKER) (test code = NORM [place], 1538) [address]: Stock Driver/Techni won ID = [id number] for Cynthia Laird BASIC METABOLIC [id number] 04:44:00 Test Item Value Reference Range Interpretation Comments SODIUM (BEAKER) 133 meq/L 136-145 L (test code = 381) POTASSIUM (BEAKER) 4.4 meq/L 3.5-5.1 (test code = 379) CHLORIDE (BEAKER) 100 meq/L 98-107 (test code = 382) CO2 (BEAKER) (test 22 meq/L 22-29 code = 355) BLOOD UREA NITROGEN 47 mg/dL 7-21 H (BEAKER) (test code = 354) CREATININE (BEAKER) 6.51 mg/dL 0.57-1.25 H (test code = 358) GLUCOSE RANDOM 111 mg/dL 70-105 H (BEAKER) (test code = 652) CALCIUM (BEAKER) 8.7 mg/dL 8.4-10.2 (test code = 697) EGFR (BEAKER) (test 11 mL/min/1.73 ESTIMA ARI GFR IS code = 1092) sq m NOT ACCURATE CREATININE CLEARANCE IN PREDICTING GLOMERULAR FILTRATION RATE . ESTIMATED GFR I S NOT APPLICABLE FOR DIALYSIS PATIEN TS. Stock Driver ID - [id number] 04:20:00 Test Item Value Reference Range Interpretation Comments MAGNESIUM (BEAKER) (test code = 1.8 mg/dL 1.6-2.6 627) Stock Driver ID - [id number] 04:20:00 Test Item Value Reference Range Interpretation Comments PHOSPHORUS (BEAKER) (test code = 6.3 mg/dL 2.3-4.7 H 604) Stock Driver ID - DBPROTHROMBIN [id number] 04:19:00 Test Item Value Reference Range Interpretation Comments PROTIME (BEAKER) 22.0 seconds 11.9-14.2 H (test code = 759) INR (BEAKER) (test 1.95 See_Comment [Automat ed message] code = 370) The system Umeng generated this result transmitted ref erence range: <=5.90. The reference range was not used to int erpret this result as normal/abnormal . RECOMMENDED COUMADIN/WARFARIN INR THERAPY RANGESSTANDARD DOSE: 2.0 - 3.0 Includes: PROPHYLAXIS forvenous thrombosis, systemic embolization; TREATMENT for venous thrombosis and/or pulmonary embolus.HIGH RISK: Target INR is 2.5-3.5 for patients with mechanical heart valves.CALCIUM, [id number] 03:29:00 Test Item Value Reference Range Interpretation Comments CALCIUM IONIZED (BEAKER) (test 1.18 mmol/L 1.12-1.27 code = 698) PH, BLOOD (BEAKER) (test code = 7.43 1810) CBC W/PLT COUNT & AUTO [id number] 03:28:00 Test Item Value Reference Range Interpretation Comments WHITE BLOOD CELL COUNT (BEAKER) 9.8 K/ L 3.5-10.5 (test code = 775) RED BLOOD CELL COUNT (BEAKER) 2.80 M/ L 4.63-6.08 L (test code = 761) HEMOGLOBIN (BEAKER) (test code = 8.0 GM/DL 13.7-17.5 L 410) HEMATOCRIT (BEAKER) (test code = 24.1 % 40.1-51.0 L 411) MEAN CORPUSCULAR VOLUME (BEAKER) 86.1 fL 79.0-92.2 (test code = 753) MEAN CORPUSCULAR HEMOGLOBIN 28.6 pg 25.7-32.2 (BEAKER) (test code = 751) MEAN CORPUSCULAR HEMOGLOBIN CONC 33.2 GM/DL 32.3-36.5 (BEAKER) (test code = 752) RED CELL DISTRIBUTION WIDTH 15.9 % 11.6-14.4 H (BEAKER) (test code = 412) PLATELET COUNT (BEAKER) (test 230 K/CU MM 150-450 code = 756) MEAN PLATELET VOLUME (BEAKER) 8.7 fL 9.4-12.4 L (test code = 754) NUCLEATED RED BLOOD CELLS 0 /100 WBC 0-0 (BEAKER) (test code = 413) NEUTROPHILS RELATIVE PERCENT 79 % (BEAKER) (test code = 429) LYMPHOCYTES RELATIVE PERCENT 10 % (BEAKER) (test code = 430) MONOCYTES RELATIVE PERCENT 7 % (BEAKER) (test code = 431) EOSINOPHILS RELATIVE PERCENT 3 % (BEAKER) (test code = 432) BASOPHILS RELATIVE PERCENT 1 % (BEAKER) (test code = 437) NEUTROPHILS ABSOLUTE COUNT 7.67 K/ L 1.78-5.38 H (BEAKER) (test code = 670) LYMPHOCYTES ABSOLUTE COUNT 0.98 K/ L 1.32-3.57 L (BEAKER) (test code = 414) MONOCYTES ABSOLUTE COUNT (BEAKER) 0.70 K/ L 0.30-0.82 (test code = 415) EOSINOPHILS ABSOLUTE COUNT 0.27 K/ L 0.04-0.54 (BEAKER) (test code = 416) BASOPHILS ABSOLUTE COUNT (BEAKER) 0.10 K/ L 0.01-0.08 H (test code = 417) IMMATURE GRANULOCYTES-RELATIVE 1 % 0-1 PERCENT (BEAKER) (test code = 2801) POCT-GLUCOSE [id number] 21:26:00 Test Item Value Reference Range Interpretation Comments POC-GLUCOSE METER 115 mg/dL 70-110 H : TESTED A T [facility] 6720 (BEAKER) (test code = [facility], 1538) [address]: Stock Driver/Techni won ID = [id number] for Go Cynthia slaughter [id number] 18:57:00 Test Item Value Reference Range Interpretation Comments MAGNESIUM (BEAKER) (test code = 1.8 mg/dL 1.6-2.6 627) Stock Driver ID - LINA LPOCT-GLUCOSE [id number] 18:44:00 Test Item Value Reference Range Interpretation Comments POC-GLUCOSE METER 102 mg/dL 70-110 : TESTED A T [facility] 6720 (BEAKER) (test code = [facility], 153) [address]: Stock Driver/Techni won ID = [id number] for Am inu, Aleksandarfayat POCT-GLUCOSE [id number] 12:50:00 Test Item Value Reference Range Interpretation Comments POC-GLUCOSE METER 84 mg/dL 70-110 : TESTED A T [facility] 6720 (TAMARA) (test code = NORM [place] [facility], 1538) [address]: Stock Driver/Techni won ID = [id number] for RONAL BROCK POCT-GLUCOSE [id number] 07:48:00 Test Item Value Reference Range Interpretation Comments POC-GLUCOSE METER 88 mg/dL 70-110 : TESTED A T [facility] 6720 (TAMARA) (test code = NORM [place] [facility], 1538) [address]: Stock Driver/Techni won ID = [id number] for RONAL BROCK RAD, CHEST, 1 VIEW, NON [id number] 06:09:00Reason for exam:- >intubatedShould this be performed at the bedside?->Yes [facility] : 1975 Sex: MFINAL REPORT RAD, CHEST, 1 VIEW, NON DEPT INDICATION: intubated TESFAYE RISON: Prior day's exam FINDINGS: Portable frontal view of the chest. IMPRESSION: Support Lines: Central catheter tip overlies right atrium. Cardiac valvular prosthesis. Prior sternotomy. Lungs and pleura: Increased basilar airspace disease. Superimposed small bilateral effusions are suspected. No pneumothorax. Heart and mediastinum: Stable contours. Stable surgical changes.Additional findings: None. Signed: Re Cantu Verified Date/Time: 02/05/2021 06:09:25 BASIC METABOLIC [id number] 04:35:00 Test Item Value Reference Range Interpretation Comments SODIUM (BEAKER) 133 meq/L 136-145 L (test code = 381) POTASSIUM (BEAKER) 4.2 meq/L 3.5-5.1 (test code = 379) CHLORIDE (BEAKER) 101 meq/L 98-107 (test code = 382) CO2 (BEAKER) (test 23 meq/L 22-29 code = 355) BLOOD UREA NITROGEN 32 mg/dL 7-21 H (BEAKER) (test code = 354) CREATININE (BEAKER) 5.02 mg/dL 0.57-1.25 H (test code = 358) GLUCOSE RANDOM 96 mg/dL 70-105 (BEAKER) (test code = 652) CALCIUM (BEAKER) 8.1 mg/dL 8.4-10.2 L (test code = 697) EGFR (BEAKER) (test 15 mL/min/1.73 ESTIMA ARI GFR IS code = 1092) sq m NOT ACCURATE CREATININE CLEARANCE IN PREDICTING GLOMERULAR FILTRATION RATE . ESTIMATED GFR I S NOT APPLICABLE FOR DIALYSIS PATIEN TS. Stock Driver ID - LINA [id number] 04:16:00 Test Item Value Reference Range Interpretation Comments MAGNESIUM (BEAKER) (test code = 1.6 mg/dL 1.6-2.6 627) Stock Driver ID - LINA [id number] 04:16:00 Test Item Value Reference Range Interpretation Comments PHOSPHORUS (BEAKER) (test code = 5.1 mg/dL 2.3-4.7 H 604) Stock Driver ID - LINA LCBC W/PLT COUNT & AUTO [id number] 04:13:00 Test Item Value Reference Range Interpretation Comments WHITE BLOOD CELL COUNT (BEAKER) 10.9 K/ L 3.5-10.5 H (test code = 775) RED BLOOD CELL COUNT (BEAKER) 2.60 M/ L 4.63-6.08 L (test code = 761) HEMOGLOBIN (BEAKER) (test code = 7.5 GM/DL 13.7-17.5 L 410) HEMATOCRIT (BEAKER) (test code = 22.9 % 40.1-51.0 L 411) MEAN CORPUSCULAR VOLUME (BEAKER) 88.1 fL 79.0-92.2 (test code = 753) MEAN CORPUSCULAR HEMOGLOBIN 28.8 pg 25.7-32.2 (BEAKER) (test code = 751) MEAN CORPUSCULAR HEMOGLOBIN CONC 32.8 GM/DL 32.3-36.5 (BEAKER) (test code = 752) RED CELL DISTRIBUTION WIDTH 16.2 % 11.6-14.4 H (BEAKER) (test code = 412) PLATELET COUNT (BEAKER) (test 233 K/CU MM 150-450 code = 756) MEAN PLATELET VOLUME (BEAKER) 8.8 fL 9.4-12.4 L (test code = 754) NUCLEATED RED BLOOD CELLS 0 /100 WBC 0-0 (BEAKER) (test code = 413) NEUTROPHILS RELATIVE PERCENT 80 % (BEAKER) (test code = 429) LYMPHOCYTES RELATIVE PERCENT 10 % (BEAKER) (test code = 430) MONOCYTES RELATIVE PERCENT 6 % (BEAKER) (test code = 431) EOSINOPHILS RELATIVE PERCENT 3 % (BEAKER) (test code = 432) BASOPHILS RELATIVE PERCENT 1 % (BEAKER) (test code = 437) NEUTROPHILS ABSOLUTE COUNT 8.66 K/ L 1.78-5.38 H (BEAKER) (test code = 670) LYMPHOCYTES ABSOLUTE COUNT 1.06 K/ L 1.32-3.57 L (BEAKER) (test code = 414) MONOCYTES ABSOLUTE COUNT (BEAKER) 0.64 K/ L 0.30-0.82 (test code = 415) EOSINOPHILS ABSOLUTE COUNT 0.37 K/ L 0.04-0.54 (BEAKER) (test code = 416) BASOPHILS ABSOLUTE COUNT (BEAKER) 0.09 K/ L 0.01-0.08 H (test code = 417) IMMATURE GRANULOCYTES-RELATIVE 1 % 0-1 PERCENT (BEAKER) (test code = 2801) PROTHROMBIN [id number] 03:39:00 Test Item Value Reference Range Interpretation Comments PROTIME (BEAKER) 27.9 seconds 11.9-14.2 H (test code = 759) INR (BEAKER) (test 2.64 See_Comment [Automat ed message] code = 370) The system Umeng generated this result transmitted ref erence range: <=5.90. The reference range was not used to int erpret this result as normal/abnormal . RECOMMENDED COUMADIN/WARFARIN INR THERAPY RANGESSTANDARD DOSE: 2.0 - 3.0 Includes: PROPHYLAXIS forvenous thrombosis, systemic embolization; TREATMENT for venous thrombosis and/or pulmonary embolus.HIGH RISK: Target INR is 2.5-3.5 for patients with mechanical heart valves.CALCIUM, [id number] 03:35:00 Test Item Value Reference Range Interpretation Comments CALCIUM IONIZED (BEAKER) (test 1.11 mmol/L 1.12-1.27 L code = 698) PH, BLOOD (BEAKER) (test code = 7.48 1810) POCT-GLUCOSE [id number] 21:54:00 Test Item Value Reference Range Interpretation Comments POC-GLUCOSE METER 105 mg/dL 70-110 : TESTED A T [facility] 6720 (BEPBC Lasers) (test code = NORM [place] [facility], 1538) [address]: Stock Driver/Techni won ID = [id number] for September PROTHROMBIN [id number] 20:05:00 Test Item Value Reference Range Interpretation Comments PROTIME (BEAKER) 30.9 seconds 11.9-14.2 H (test code = 759) INR (BEAKER) (test 3.01 See_Comment [Automat ed message] code = 370) The system Umeng generated this result transmitted ref erence range: <=5.90. The reference range was not used to int erpret this result as normal/abnormal . RECOMMENDED COUMADIN/WARFARIN INR THERAPY RANGESSTANDARD DOSE: 2.0 - 3.0 Includes: PROPHYLAXIS forvenous thrombosis, systemic embolization; TREATMENT for venous thrombosis and/or pulmonary embolus.HIGH RISK: Target INR is 2.5-3.5 for patients with mechanical heart valves.POCT-GLUCOSE [id number] 19:04:00 Test Item Value Reference Range Interpretation Comments POC-GLUCOSE METER 128 mg/dL 70-110 H : TESTED A T [facility] 6720 (BEPBC Lasers) (test code = NORM [place] [facility], 1538) [address]: Stock Driver/Techni won ID = [id number] for Fo ntenotSengLevy CBC W/PLT COUNT & AUTO [id number] 15:37:00 Test Item Value Reference Range Interpretation Comments WHITE BLOOD CELL COUNT (BEAKER) 8.5 K/ L 3.5-10.5 (test code = 775) RED BLOOD CELL COUNT (BEAKER) 2.50 M/ L 4.63-6.08 L (test code = 761) HEMOGLOBIN (BEAKER) (test code = 7.4 GM/DL 13.7-17.5 L 410) HEMATOCRIT (BEAKER) (test code = 22.1 % 40.1-51.0 L 411) MEAN CORPUSCULAR VOLUME (BEAKER) 88.4 fL 79.0-92.2 (test code = 753) MEAN CORPUSCULAR HEMOGLOBIN 29.6 pg 25.7-32.2 (BEAKER) (test code = 751) MEAN CORPUSCULAR HEMOGLOBIN CONC 33.5 GM/DL 32.3-36.5 (BEAKER) (test code = 752) RED CELL DISTRIBUTION WIDTH 15.8 % 11.6-14.4 H (BEAKER) (test code = 412) PLATELET COUNT (BEAKER) (test 234 K/CU MM 150-450 code = 756) MEAN PLATELET VOLUME (BEAKER) 8.9 fL 9.4-12.4 L (test code = 754) NUCLEATED RED BLOOD CELLS 0 /100 WBC 0-0 (BEAKER) (test code = 413) NEUTROPHILS RELATIVE PERCENT 79 % (BEAKER) (test code = 429) LYMPHOCYTES RELATIVE PERCENT 9 % (BEAKER) (test code = 430) MONOCYTES RELATIVE PERCENT 6 % (BEAKER) (test code = 431) EOSINOPHILS RELATIVE PERCENT 5 % (BEAKER) (test code = 432) BASOPHILS RELATIVE PERCENT 1 % (BEAKER) (test code = 437) NEUTROPHILS ABSOLUTE COUNT 6.70 K/ L 1.78-5.38 H (BEAKER) (test code = 670) LYMPHOCYTES ABSOLUTE COUNT 0.78 K/ L 1.32-3.57 L (BEAKER) (test code = 414) MONOCYTES ABSOLUTE COUNT (BEAKER) 0.49 K/ L 0.30-0.82 (test code = 415) EOSINOPHILS ABSOLUTE COUNT 0.39 K/ L 0.04-0.54 (BEAKER) (test code = 416) BASOPHILS ABSOLUTE COUNT (BEAKER) 0.05 K/ L 0.01-0.08 (test code = 417) IMMATURE GRANULOCYTES-RELATIVE 1 % 0-1 PERCENT (BEAKER) (test code = 2801) POCT-GLUCOSE [id number] 11:48:00 Test Item Value Reference Range Interpretation Comments POC-GLUCOSE METER 113 mg/dL 70-110 H : TESTED A T [facility] 6720 (BEAKER) (test code = NORM [place] [facility], 1538) [address]: Stock Driver/Techni won ID = [id number] for THOMAS BRYANT POCT-GLUCOSE [id number] 07:41:00 Test Item Value Reference Range Interpretation Comments POC-GLUCOSE METER 119 mg/dL 70-110 H : TESTED A T [facility] 6720 (BEAKER) (test code = NORM [place] [facility], 1538) [address]: Stock Driver/Techni won ID = [id number] for THOMAS BRYANT PROTHROMBIN [id number] 06:34:00 Test Item Value Reference Range Interpretation Comments PROTIME (BEAKER) 35.3 seconds 11.9-14.2 H (test code = 759) INR (BEAKER) (test 3.56 See_Comment [Automat ed message] code = 370) The system Umeng generated this result transmitted ref erence range: <=5.90. The reference range was not used to int erpret this result as normal/abnormal . RECOMMENDED COUMADIN/WARFARIN INR THERAPY RANGESSTANDARD DOSE: 2.0 - 3.0 Includes: PROPHYLAXIS forvenous thrombosis, systemic embolization; TREATMENT for venous thrombosis and/or pulmonary embolus.HIGH RISK: Target INR is 2.5-3.5 for patients with mechanical heart valves.RAD, CHEST, 1 VIEW, NON [id number] 06:02:00Reason for exam:->intubatedShould this be performed at the bedside?->Yes[facility] : 1975 Sex: MFINAL REPORT RAD, CHEST, 1 VIEW, NON DEPT INDICATION: intubated TESFAYE CHE: Prior day's exam FINDINGS: Portable frontal view of the chest. IMPRESSION: Support Lines: Central catheter tip overlies right atrium. Cardiac valvular prosthesis. Prior sternotomy. Lungs and pleura: Basilar effusions and adjacent compressive atelectasis, likely with basilar airspace edema, all unchanged. No pneumothorax.Heart and mediastinum: Stable contours. Stable surgical changes.Additional findings: None. Signed: Re Cantu MDReport Verified Date/Time: 02/04/2021 06:02:13 BASIC METABOLIC [id number] 05:16:00 Test Item Value Reference Range Interpretation Comments SODIUM (BEAKER) 138 meq/L 136-145 (test code = 381) POTASSIUM (BEAKER) 4.8 meq/L 3.5-5.1 (test code = 379) CHLORIDE (BEAKER) 102 meq/L 98-107 (test code = 382) CO2 (BEAKER) (test 24 meq/L 22-29 code = 355) BLOOD UREA NITROGEN 62 mg/dL 7-21 H (BEAKER) (test code = 354) CREATININE (BEAKER) 7.48 mg/dL 0.57-1.25 H (test code = 358) GLUCOSE RANDOM 109 mg/dL 70-105 H (BEAKER) (test code = 652) CALCIUM (BEAKER) 8.2 mg/dL 8.4-10.2 L (test code = 697) EGFR (BEAKER) (test 10 mL/min/1.73 ESTIMA ARI GFR IS code = 1092) sq m NOT ACCURATE CREATININE CLEARANCE IN PREDICTING GLOMERULAR FILTRATION RATE . ESTIMATED GFR I S NOT APPLICABLE FOR DIALYSIS PATIEN TS. Stock Driver ID - VALDEZ [id number] 05:09:00 Test Item Value Reference Range Interpretation Comments PHOSPHORUS (BEAKER) (test code = 6.8 mg/dL 2.3-4.7 H 604) Stock Driver ID - VALDEZ [id number] 05:08:00 Test Item Value Reference Range Interpretation Comments MAGNESIUM (BEAKER) (test code = 1.9 mg/dL 1.6-2.6 627) Stock Driver ID - VALDEZ MCALCIUM, [id number] 05:01:00 Test Item Value Reference Range Interpretation Comments CALCIUM IONIZED (BEAKER) (test 1.12 mmol/L 1.12-1.27 code = 698) PH, BLOOD (BEAKER) (test code = 7.43 1810) CBC W/PLT COUNT & AUTO [id number] 04:49:00 Test Item Value Reference Range Interpretation Comments WHITE BLOOD CELL COUNT (BEAKER) 9.1 K/ L 3.5-10.5 (test code = 775) RED BLOOD CELL COUNT (BEAKER) 2.40 M/ L 4.63-6.08 L (test code = 761) HEMOGLOBIN (BEAKER) (test code = 7.0 GM/DL 13.7-17.5 L 410) HEMATOCRIT (BEAKER) (test code = 21.0 % 40.1-51.0 L 411) MEAN CORPUSCULAR VOLUME (BEAKER) 87.5 fL 79.0-92.2 (test code = 753) MEAN CORPUSCULAR HEMOGLOBIN 29.2 pg 25.7-32.2 (BEAKER) (test code = 751) MEAN CORPUSCULAR HEMOGLOBIN CONC 33.3 GM/DL 32.3-36.5 (BEAKER) (test code = 752) RED CELL DISTRIBUTION WIDTH 16.0 % 11.6-14.4 H (BEAKER) (test code = 412) PLATELET COUNT (BEAKER) (test 255 K/CU MM 150-450 code = 756) MEAN PLATELET VOLUME (BEAKER) 9.4 fL 9.4-12.4 (test code = 754) NUCLEATED RED BLOOD CELLS 0 /100 WBC 0-0 (BEAKER) (test code = 413) NEUTROPHILS RELATIVE PERCENT 78 % (BEAKER) (test code = 429) LYMPHOCYTES RELATIVE PERCENT 9 % (BEAKER) (test code = 430) MONOCYTES RELATIVE PERCENT 7 % (BEAKER) (test code = 431) EOSINOPHILS RELATIVE PERCENT 4 % (BEAKER) (test code = 432) BASOPHILS RELATIVE PERCENT 1 % (BEAKER) (test code = 437) NEUTROPHILS ABSOLUTE COUNT 7.15 K/ L 1.78-5.38 H ([facility] (test code = 670) LYMPHOCYTES ABSOLUTE COUNT 0.85 K/ L 1.32-3.57 L (BEAKER) (test code = 414) MONOCYTES ABSOLUTE COUNT (BEAKER) 0.67 K/ L 0.30-0.82 (test code = 415) EOSINOPHILS ABSOLUTE COUNT 0.37 K/ L 0.04-0.54 (BEAKER) (test code = 416) BASOPHILS ABSOLUTE COUNT (BEAKER) 0.06 K/ L 0.01-0.08 (test code = 417) IMMATURE GRANULOCYTES-RELATIVE 0 % 0-1 PERCENT ([facility] (test code = 2801) POCT-GLUCOSE [id number] 00:50:00 Test Item Value Reference Range Interpretation Comments POC-GLUCOSE METER 115 mg/dL 70-110 H : Notified RN/MD: ([facility] (test code = TESTED AT [place] [address]) [facility], [address]: Stock Driver/Techni won ID = [id number] for Vinod Canas POCT-GLUCOSE [id number] 17:39:00 Test Item Value Reference Range Interpretation Comments POC-GLUCOSE METER 101 mg/dL 70-110 : TESTED A T [place] [address] ([facility] (test code = [facility], 153) [address]: Stock Driver/Techni won ID = [id number] for RONAL PEREZ POCT-GLUCOSE [id number] 11:33:00 Test Item Value Reference Range Interpretation Comments POC-GLUCOSE METER 90 mg/dL 70-110 : TESTED A T [place] [address] ([facility] (test code = [facility], [facility]) [address]: Stock Driver/Techni won ID = [id number] for VINOD, RONAL RAD, CHEST, 1 VIEW, NON [id number] 09:24:00Reason for exam:- >intubatedShould this be performed at the bedside?->Yes [facility] : 1975 Sex: MFINAL REPORT RAD, CHEST, 1 VIEW, NON DEPT INDICATION: intubated TESFAYE RISON: Prior day's exam FINDINGS: Portable frontal view of the chest. IMPRESSION: Support Lines: DOS is catheter tip overlies right atrium Lungs and pleura: The lateral airspace opacities, predominantly within the lower lobes, unchanged, representing multifocal edema and/or multifocal pneumonia. No pneumothorax.Heart and mediastinum: Stable contours.Additional findings: None. Signed: Re Cantu Verified Date/Time: 02/03/2021 09:24:45 Reading Location: [facility] Reading Room POCT-GLUCOSE METER 2021-02-03 07:45:00 Test Item Value Reference Range Interpretation Comments POC-GLUCOSE METER 87 mg/dL 70-110 : TESTED A T [facility] 6720 (BEAKER) (test code [facility], = 1538) [address]: Stock Driver/Techni won ID = [id number] for Timmy hernandez [id number]), [facility] BASIC METABOLIC [id number] 05:08:00 Test Item Value Reference Range Interpretation Comments SODIUM (BEAKER) 136 meq/L 136-145 (test code = 381) POTASSIUM (BEAKER) 4.7 meq/L 3.5-5.1 (test code = 379) CHLORIDE (BEAKER) 103 meq/L 98-107 (test code = 382) CO2 (BEAKER) (test 23 meq/L 22-29 code = 355) BLOOD UREA NITROGEN 50 mg/dL 7-21 H (BEAKER) (test code = 354) CREATININE (BEAKER) 5.87 mg/dL 0.57-1.25 H (test code = 358) GLUCOSE RANDOM 92 mg/dL 70-105 (BEAKER) (test code = 652) CALCIUM (BEAKER) 8.3 mg/dL 8.4-10.2 L (test code = 697) EGFR (BEAKER) (test 13 mL/min/1.73 ESTIMA ARI GFR IS code = 1092) sq m NOT ACCURATE CREATININE CLEARANCE IN PREDICTING GLOMERULAR FILTRATION RATE . ESTIMATED GFR I S NOT APPLICABLE FOR DIALYSIS PATIEN TS. Stock Driver ID - PIRAFY [id number] 05:07:00 Test Item Value Reference Range Interpretation Comments MAGNESIUM (BEAKER) (test code = 1.9 mg/dL 1.6-2.6 627) Stock Driver ID - PIRAFY [id number] 05:07:00 Test Item Value Reference Range Interpretation Comments PHOSPHORUS (BEAKER) (test code = 5.9 mg/dL 2.3-4.7 H 604) Stock Driver ID - PIRAFY LCALCIUM, [id number] 03:59:00 Test Item Value Reference Range Interpretation Comments CALCIUM IONIZED (BEAKER) (test 1.13 mmol/L 1.12-1.27 code = 698) PH, BLOOD (BEAKER) (test code = 7.43 1810) CBC W/PLT COUNT & AUTO [id number] 03:45:00 Test Item Value Reference Range Interpretation Comments WHITE BLOOD CELL COUNT (BEAKER) 9.6 K/ L 3.5-10.5 (test code = 775) RED BLOOD CELL COUNT (BEAKER) 2.51 M/ L 4.63-6.08 L (test code = 761) HEMOGLOBIN (BEAKER) (test code = 7.3 GM/DL 13.7-17.5 L 410) HEMATOCRIT (BEAKER) (test code = 22.6 % 40.1-51.0 L 411) MEAN CORPUSCULAR VOLUME (BEAKER) 90.0 fL 79.0-92.2 (test code = 753) MEAN CORPUSCULAR HEMOGLOBIN 29.1 pg 25.7-32.2 (BEAKER) (test code = 751) MEAN CORPUSCULAR HEMOGLOBIN CONC 32.3 GM/DL 32.3-36.5 (BEAKER) (test code = 752) RED CELL DISTRIBUTION WIDTH 16.7 % 11.6-14.4 H (BEAKER) (test code = 412) PLATELET COUNT (BEAKER) (test 233 K/CU MM 150-450 code = 756) MEAN PLATELET VOLUME (BEAKER) 9.5 fL 9.4-12.4 (test code = 754) NUCLEATED RED BLOOD CELLS 0 /100 WBC 0-0 (BEAKER) (test code = 413) NEUTROPHILS RELATIVE PERCENT 79 % (BEAKER) (test code = 429) LYMPHOCYTES RELATIVE PERCENT 8 % (BEAKER) (test code = 430) MONOCYTES RELATIVE PERCENT 7 % (BEAKER) (test code = 431) EOSINOPHILS RELATIVE PERCENT 4 % (BEAKER) (test code = 432) BASOPHILS RELATIVE PERCENT 1 % (BEAKER) (test code = 437) NEUTROPHILS ABSOLUTE COUNT 7.57 K/ L 1.78-5.38 H (BEAKER) (test code = 670) LYMPHOCYTES ABSOLUTE COUNT 0.80 K/ L 1.32-3.57 L (BEAKER) (test code = 414) MONOCYTES ABSOLUTE COUNT (BEAKER) 0.70 K/ L 0.30-0.82 (test code = 415) EOSINOPHILS ABSOLUTE COUNT 0.40 K/ L 0.04-0.54 (BEAKER) (test code = 416) BASOPHILS ABSOLUTE COUNT (BEAKER) 0.07 K/ L 0.01-0.08 (test code = 417) IMMATURE GRANULOCYTES-RELATIVE 1 % 0-1 PERCENT (BEAKER) (test code = 2801) PROTHROMBIN [id number] 03:38:00 Test Item Value Reference Range Interpretation Comments PROTIME (BEAKER) 28.4 seconds 11.9-14.2 H (test code = 759) INR (BEAKER) (test 2.70 See_Comment [Automat ed message] code = 370) The system [employer] generated this result transmitted ref erence range: <=5.90. The reference range was not used to int erpret this result as normal/abnormal . RECOMMENDED COUMADIN/WARFARIN INR THERAPY RANGESSTANDARD DOSE: 2.0 - 3.0 Includes: PROPHYLAXIS forvenous thrombosis, systemic embolization; TREATMENT for venous thrombosis and/or pulmonary embolus.HIGH RISK: Target INR is 2.5-3.5 for patients with mechanical heart valves.POCT-GLUCOSE [id number] 22:10:00 Test Item Value Reference Range Interpretation Comments POC-GLUCOSE METER 85 mg/dL 70-110 : [facility] A T [facility] (test code = [facility], 1538) [address]: Stock Driver/Techni won ID = [id number] for MESERET DE SOUZA AUBREY POCT-GLUCOSE [id number] 16:43:00 Test Item Value Reference Range Interpretation Comments POC-GLUCOSE METER 88 mg/dL 70-110 : TESTED A T [facility] 6720 [facility] (test code = [facility], 1538) [address]: Stock Driver/Techni won ID = [id number] for IVONE ZHAO POCT-GLUCOSE [id number] 12:16:00 Test Item Value Reference Range Interpretation Comments POC-GLUCOSE METER 94 mg/dL 70-110 : [facility]ED A T [facility] 67[facility] (test code = [facility], 1538) [address]: Stock Driver/Techni won ID = [id number] for IVONE ZHAO RAD, CHEST, 1 VIEW, NON [id number] 08:20:00Reason for exam:- >intubatedShould this be performed at the bedside?->Yes [facility] : 1975 Sex: MFINAL REPORT RAD, CHEST, 1 VIEW, NON DEPT INDICATION: intubated TESFAYE RISON: Prior day's exam FINDINGS: Portable frontal view of the chest. IMPRESSION: Support Lines: Dialysis catheter tip overlies right atrium. Sternotomy wires. Lungs and pleura: Bilateral effusions with adjacent compressive atelectasis. No pneumothorax.Heart and mediastinum: Stable contours. Stablesurgical changes.Additional findings: None. Signed: Re Cantu Verified Date/Time: 02/02/2021 08:20:25 Reading Location: [facility] Reading Room XR chest 1 view portable / [id number] 08:20:00Interface, External Ris In - 02/02/2021 8:22 AM CDTFINAL REPORT RAD, CHEST, 1 VIEW, NON DEPT INDICATION: intubated COMPARISON: Prior day's exam FINDINGS: Portable frontal view of the chest. IMPRESSION: Support Lines: Dialysis catheter tip overlies right atrium. Sternotomy wires. Lungs and pleura: Bilateral effusions with adjacent compressive atelectasis. No pneumothorax.Heart and mediastinum: Stable contours. Stable surgical changes.Additional findings: None. Signed: Re Cantu Verified Date/Time: 02/02/2021 08:20:25 Reading Location[facility] / [id number] 08:20:00Interface, External Ris In - 02/02/2021 8:22 AM CDTFINAL REPORT RAD, CHEST, 1 VIEW, NON DEPT INDICATION: intubated COMPARISON: Prior day's exam FINDINGS: Portable frontal view of the chest. IMPRESSION: Support Lines: Dialysis catheter tip overlies right atrium. Sternotomy wires. Lungs and pleura: Bilateral effusions with adjacent compressive atelectasis. No pneumothorax.Heart and mediastinum: Stable contours. Stable surgical changes.Additional findings: None. Signed: Re Cantu Verified Date/Time: 02/02/2021 08:20:25 Reading Location: [facility] / [id number] 08:20:00Interface, External Ris In - 02/02/2021 8:22 AM CDTFINAL REPORT RAD, CHEST, 1 VIEW, NON DEPT INDICATION: intubated COMPARISON: Prior day's exam FINDINGS: Portable frontal view of the chest. IMPRESSION: Support Lines: Dialysis catheter tip overlies right atrium. Sternotomy wires. Lungs and pleura: Bilateral effusions with adjacent compressive atelectasis. No pneumothorax.Heart and mediastinum: Stable contours. Stable surgical changes.Additional findings: None. Signed: Re Cantu Verified Date/Time: 02/02/2021 08:20:25 Reading Location: [facility] Reading Room [facility]-Glucose [id number] 07:38:00 Test Item Value Reference Range Interpretation Comments POC-Glucose Meter (test 83 mg/dL 70-110 : TE STED AT [facility] code = 1538) [address] [place] [address], 770 30: Stock Driver/Techni won ID = [id number] for VINOD, RONAL Lab Interpretation (test Normal code = 00771-6) [facility]-Glucose [id number] 07:38:00 Test Item Value Reference Range Interpretation Comments POC-Glucose Meter (test 83 mg/dL 70-110 : TE STED AT [facility] code = 1538) [address] [place] [address], 770 30: Stock Driver/Techni won ID = [id number] for VINOD, RONAL Lab Interpretation (test Normal code = 12698-5) [facility]-Glucose [id number] 07:38:00 Test Item Value Reference Range Interpretation Comments POC-Glucose Meter (test 83 mg/dL 70-110 : TE STED AT [facility] code = 1538) [address] [place] [address], 770 30: Stock Driver/Techni won ID = [id number] for VINOD, RONAL Lab Interpretation (test Normal code = 75404-4) [facility]-GLUCOSE [id number] 07:38:00 Test Item Value Reference Range Interpretation Comments POC-GLUCOSE METER 83 mg/dL 70-110 : TESTED A T [facility] 6720 (BEAKER) (test code = [facility], 1538) [address]: Stock Driver/Techni won ID = [id number] for RONAL BROCK Calcium, [id number] 06:32:00 Test Item Value Reference Range Interpretation Comments Calcium, Ion (test code = 1993-08) 1.09 mmol/L 1.12-1.27 L pH, Blood (test code = 15430-7) 7.42 Lab Interpretation (test code = Abnormal 77975-9) [facility] [id number] 06:32:00 Test Item Value Reference Range Interpretation Comments Calcium, Ion (test code = 1993-08) 1.09 mmol/L 1.12-1.27 L pH, Blood (test code = 87828-9) 7.42 Lab Interpretation (test code = Abnormal 49642-2) [facility], [id number] 06:32:00 Test Item Value Reference Range Interpretation Comments Calcium, Ion (test code = 1993-08) 1.09 mmol/L 1.12-1.27 L pH, Blood (test code = 77683-9) 7.42 Lab Interpretation (test code = Abnormal 87473-6) [facility], [id number] 06:32:00 Test Item Value Reference Range Interpretation Comments CALCIUM IONIZED (BEAKER) (test 1.09 mmol/L 1.12-1.27 L code = 698) PH, BLOOD (BEAKER) (test code = 7.42 1810) CBC with platelet count + automated [id number] 04:38:00 Test Item Value Reference Range Interpretation Comments WBC (test code = 6690-2) 8.8 See_Comment [A utomated message] The system Umeng generated this result transmitted ref erence range: 3.5 - 10 .5 K/L. The refe rence range was not u sed to interpret this result as normal/abnor mal. RBC (test code = 789-8) 2.72 See_Comment L [Au tomated message] The system Umeng generated this result transmitted ref erence range: 4.63 - 6 .08 M/L. The refe rence range was not u sed to interpret this result as normal/abnor mal. MCHC (test code = 786-4) 32.2 See_Comment L [A utomated message] The system Umeng generated this result transmitted ref erence range: 32.3 - 3 6.5 GM/DL. The refe rence range was not u sed to interpret this result as normal/abnor mal. Hematocrit (test code = 24.5 % 40.1-51 L 4544-3) MCV (test code = 787-2) 90.1 fL 79-92.2 MCH (test code = 785-6) 29.0 pg 25.7-32.2 RDW (test code = 788-0) 16.9 % 11.6-14.4 H Platelets (test code = 233 See_Comment [Aut omated message] 777-3) The system Umeng generated this result transmitted ref erence range: 150 - 45 0 K/CU MM. The referen ce range was not u sed to interpret this result as normal/abnor mal. MPV (test code = 9.9 fL 9.4-12.4 59447-7) nRBC (test code = 413) 0 See_Comment [Aut omated message] The system Umeng generated this result transmitted ref erence range: 0 - 0 /1 00 WBC. The refere nce range was not u sed to interpret this result as normal/abnor mal. % Neutros (test code = 78 % 429) % Lymphs (test code = 7 % 430) % Monos (test code = 9 % 431) % Eos (test code = 432) 5 % % Baso (test code = 437) 1 % # Neutros (test code = 6.88 See_Comment H [Aut omated message] 670) The system Umeng generated this result transmitted ref erence range: 1.78 - 5 .38 K/L. The refe rence range was not u sed to interpret this result as normal/abnor mal. # Lymphs (test code = 0.63 See_Comment L [Auto mated message] 414) The system Umeng generated this result transmitted ref erence range: 1.32 - 3 .57 K/L. The refe rence range was not u sed to interpret this result as normal/abnor mal. # Monos (test code = 0.76 See_Comment [Autom ated message] 415) The system Umeng generated this result transmitted ref erence range: 0.30 - 0 .82 K/L. The refe rence range was not u sed to interpret this result as normal/abnor mal. # Eos (test code = 416) 0.44 See_Comment [Au tomated message] The system Umeng generated this result transmitted ref erence range: 0.04 - 0 .54 K/L. The refe rence range was not u sed to interpret this result as normal/abnor mal. # Baso (test code = 417) 0.07 See_Comment [A utomated message] The system Umeng generated this result transmitted ref erence range: 0.01 - 0 .08 K/L. The refe rence range was not u sed to interpret this result as normal/abnor mal. Immature 1 % 0-1 Granulocytes-Relative (test code = 2801) Lab Interpretation (test Abnormal code = 31770-0) [facility] with platelet count + automated [id number] 04:38:00 Test Item Value Reference Range Interpretation Comments WBC (test code = 6690-2) 8.8 See_Comment [A utomated message] The system Umeng generated this result transmitted ref erence range: 3.5 - 10 .5 K/L. The refe rence range was not u sed to interpret this result as normal/abnor mal. RBC (test code = 789-8) 2.72 See_Comment L [Au tomated message] The system Umeng generated this result transmitted ref erence range: 4.63 - 6 .08 M/L. The refe rence range was not u sed to interpret this result as normal/abnor mal. MCHC (test code = 786-4) 32.2 See_Comment L [A utomated message] The system Umeng generated this result transmitted ref erence range: 32.3 - 3 6.5 GM/DL. The refe rence range was not u sed to interpret this result as normal/abnor mal. Hematocrit (test code = 24.5 % 40.1-51 L 4544-3) MCV (test code = 787-2) 90.1 fL 79-92.2 MCH (test code = 785-6) 29.0 pg 25.7-32.2 RDW (test code = 788-0) 16.9 % 11.6-14.4 H Platelets (test code = 233 See_Comment [Aut omated message] 777-3) The system Umeng generated this result transmitted ref erence range: 150 - 45 0 K/CU MM. The referen ce range was not u sed to interpret this result as normal/abnor mal. MPV (test code = 9.9 fL 9.4-12.4 02791-7) nRBC (test code = 413) 0 See_Comment [Aut omated message] The system Umeng generated this result transmitted ref erence range: 0 - 0 /1 00 WBC. The refere nce range was not u sed to interpret this result as normal/abnor mal. % Neutros (test code = 78 % 429) % Lymphs (test code = 7 % 430) % Monos (test code = 9 % 431) % Eos (test code = 432) 5 % % Baso (test code = 437) 1 % # Neutros (test code = 6.88 See_Comment H [Aut omated message] 670) The system Umeng generated this result transmitted ref erence range: 1.78 - 5 .38 K/L. The refe rence range was not u sed to interpret this result as normal/abnor mal. # Lymphs (test code = 0.63 See_Comment L [Auto mated message] 414) The system Umeng generated this result transmitted ref erence range: 1.32 - 3 .57 K/L. The refe rence range was not u sed to interpret this result as normal/abnor mal. # Monos (test code = 0.76 See_Comment [Autom ated message] 415) The system Umeng generated this result transmitted ref erence range: 0.30 - 0 .82 K/L. The refe rence range was not u sed to interpret this result as normal/abnor mal. # Eos (test code = 416) 0.44 See_Comment [Au tomated message] The system Umeng generated this result transmitted ref erence range: 0.04 - 0 .54 K/L. The refe rence range was not u sed to interpret this result as normal/abnor mal. # Baso (test code = 417) 0.07 See_Comment [A utomated message] The system Umeng generated this result transmitted ref erence range: 0.01 - 0 .08 K/L. The refe rence range was not u sed to interpret this result as normal/abnor mal. Immature 1 % 0-1 Granulocytes-Relative (test code = 2801) Lab Interpretation (test Abnormal code = 61237-2) [facility] with platelet count + automated [id number] 04:38:00 Test Item Value Reference Range Interpretation Comments WBC (test code = 6690-2) 8.8 See_Comment [A utomated message] The system Umeng generated this result transmitted ref erence range: 3.5 - 10 .5 K/L. The refe rence range was not u sed to interpret this result as normal/abnor mal. RBC (test code = 789-8) 2.72 See_Comment L [Au tomated message] The system Umeng generated this result transmitted ref erence range: 4.63 - 6 .08 M/L. The refe rence range was not u sed to interpret this result as normal/abnor mal. MCHC (test code = 786-4) 32.2 See_Comment L [A utomated message] The system Umeng generated this result transmitted ref erence range: 32.3 - 3 6.5 GM/DL. The refe rence range was not u sed to interpret this result as normal/abnor mal. Hematocrit (test code = 24.5 % 40.1-51 L 4544-3) MCV (test code = 787-2) 90.1 fL 79-92.2 MCH (test code = 785-6) 29.0 pg 25.7-32.2 RDW (test code = 788-0) 16.9 % 11.6-14.4 H Platelets (test code = 233 See_Comment [Aut omated message] 727-3) The system Umeng generated this result transmitted ref erence range: 150 - 45 0 K/CU MM. The referen ce range was not u sed to interpret this result as normal/abnor mal. MPV (test code = 9.9 fL 9.4-12.4 13413-0) nRBC (test code = 413) 0 See_Comment [Aut omated message] The system Umeng generated this result transmitted ref erence range: 0 - 0 /1 00 WBC. The refere nce range was not u sed to interpret this result as normal/abnor mal. % Neutros (test code = 78 % 429) % Lymphs (test code = 7 % 430) % Monos (test code = 9 % 431) % Eos (test code = 432) 5 % % Baso (test code = 437) 1 % # Neutros (test code = 6.88 See_Comment H [Aut omated message] 670) The system Umeng generated this result transmitted ref erence range: 1.78 - 5 .38 K/L. The refe rence range was not u sed to interpret this result as normal/abnor mal. # Lymphs (test code = 0.63 See_Comment L [Auto mated message] 414) The system Umeng generated this result transmitted ref erence range: 1.32 - 3 .57 K/L. The refe rence range was not u sed to interpret this result as normal/abnor mal. # Monos (test code = 0.76 See_Comment [Autom ated message] 415) The system Umeng generated this result transmitted ref erence range: 0.30 - 0 .82 K/L. The refe rence range was not u sed to interpret this result as normal/abnor mal. # Eos (test code = 416) 0.44 See_Comment [Au tomated message] The system Umeng generated this result transmitted ref erence range: 0.04 - 0 .54 K/L. The refe rence range was not u sed to interpret this result as normal/abnor mal. # Baso (test code = 417) 0.07 See_Comment [A utomated message] The system Umeng generated this result transmitted ref erence range: 0.01 - 0 .08 K/L. The refe rence range was not u sed to interpret this result as normal/abnor mal. Immature 1 % 0-1 Granulocytes-Relative (test code = 2801) Lab Interpretation (test Abnormal code = 48907-0) [facility] W/PLT COUNT & AUTO [id number] 04:38:00 Test Item Value Reference Range Interpretation Comments WHITE BLOOD CELL COUNT (BEAKER) 8.8 K/ L 3.5-10.5 (test code = 775) RED BLOOD CELL COUNT (BEAKER) 2.72 M/ L 4.63-6.08 L (test code = 761) HEMOGLOBIN (BEAKER) (test code = 7.9 GM/DL 13.7-17.5 L 410) HEMATOCRIT (BEAKER) (test code = 24.5 % 40.1-51.0 L 411) MEAN CORPUSCULAR VOLUME (BEAKER) 90.1 fL 79.0-92.2 (test code = 753) MEAN CORPUSCULAR HEMOGLOBIN 29.0 pg 25.7-32.2 (BEAKER) (test code = 751) MEAN CORPUSCULAR HEMOGLOBIN CONC 32.2 GM/DL 32.3-36.5 L (BEAKER) (test code = 752) RED CELL DISTRIBUTION WIDTH 16.9 % 11.6-14.4 H (BEAKER) (test code = 412) PLATELET COUNT (BEAKER) (test 233 K/CU MM 150-450 code = 756) MEAN PLATELET VOLUME (BEAKER) 9.9 fL 9.4-12.4 (test code = 754) NUCLEATED RED BLOOD CELLS 0 /100 WBC 0-0 (BEAKER) (test code = 413) NEUTROPHILS RELATIVE PERCENT 78 % (BEAKER) (test code = 429) LYMPHOCYTES RELATIVE PERCENT 7 % (BEAKER) (test code = 430) MONOCYTES RELATIVE PERCENT 9 % (BEAKER) (test code = 431) EOSINOPHILS RELATIVE PERCENT 5 % (BEAKER) (test code = 432) BASOPHILS RELATIVE PERCENT 1 % (BEAKER) (test code = 437) NEUTROPHILS ABSOLUTE COUNT 6.88 K/ L 1.78-5.38 H (BEAKER) (test code = 670) LYMPHOCYTES ABSOLUTE COUNT 0.63 K/ L 1.32-3.57 L (BEAKER) (test code = 414) MONOCYTES ABSOLUTE COUNT (BEAKER) 0.76 K/ L 0.30-0.82 (test code = 415) EOSINOPHILS ABSOLUTE COUNT 0.44 K/ L 0.04-0.54 (BEAKER) (test code = 416) BASOPHILS ABSOLUTE COUNT (BEAKER) 0.07 K/ L 0.01-0.08 (test code = 417) IMMATURE GRANULOCYTES-RELATIVE 1 % 0-1 PERCENT (BEAKER) (test code = 2801) Basic Metabolic [id number] 04:28:00 Test Item Value Reference Range Interpretation Comments Sodium (test code = 138 meq/L 360-438 1636-2) Potassium (test code = 4.4 meq/L 3.5-5.1 2823-3) Chloride (test code = 104 meq/L 98-107 2075-0) CO2 (test code = 24 meq/L -2027-) BUN (test code = 40 mg/dL 7-21 H 3094-0) Creatinine (test code 4.27 mg/dL 0.57-1.25 H = 2160-0) Glucose (test code = 94 mg/dL 70-105 2345-7) Calcium (test code = 8.3 mg/dL 8.4-10.2 L 71875-8) EGFR (test code = 19 mL/min/1.[place] [address]-7) NOT ACCURATE CREATININE CLEARANCE IN PREDICTING GLOMERULAR FILTRATION RATE . ESTIMATED GFR I S NOT APPLICABLE FOR DIALYSIS PATIENTS. CARLEY (test code = CARLEY) Stock Driver ID - VALDEZ M Lab Interpretation Abnormal (test code = 25395-3) [facility] Met[facility] [id number] 04:28:00 Test Item Value Reference Range Interpretation Comments Sodium (test code = 138 meq/L 423-369 2454-2) Potassium (test code = 4.4 meq/L 3.5-5.1 2823-3) Chloride (test code = 104 meq/L 98-107 2075-0) CO2 (test code = 24 meq/L -9) BUN (test code = 40 mg/dL 7-21 H 3094-0) Creatinine (test code 4.27 mg/dL 0.57-1.25 H = 2160-0) Glucose (test code = 94 mg/dL 70-105 2345-7) Calcium (test code = 8.3 mg/dL 8.4-10.2 L 54053-5) EGFR (test code = 19 mL/min/1.[place] [address]-3) NOT ACCURATE CREATININE CLEARANCE IN PREDICTING GLOMERULAR FILTRATION RATE . ESTIMATED GFR I S NOT APPLICABLE FOR DIALYSIS PATIENTS. CARLEY (test code = CARLEY) Stock Driver ID - VALDEZ M Lab Interpretation Abnormal (test code = 85884-0) [facility] Metabolic [id number] 04:28:00 Test Item Value Reference Range Interpretation Comments Sodium (test code = 138 meq/L 518-219 2906-2) Potassium (test code = 4.4 meq/L 3.5-5.1 2823-3) Chloride (test code = 104 meq/L 98-107 5-0) CO2 (test code = 24 meq/L 22-29 8-9) BUN (test code = 40 mg/dL 7-21 H 3094-0) Creatinine (test code 4.27 mg/dL 0.57-1.25 H = 2160-0) Glucose (test code = 94 mg/dL 70-105 2345-7) Calcium (test code = 8.3 mg/dL 8.4-10.2 L 48298-4) EGFR (test code = 19 mL/min/1.[place] [address]-7) NOT ACCURATE CREATININE CLEARANCE IN PREDICTING GLOMERULAR FILTRATION RATE . ESTIMATED GFR I S NOT APPLICABLE FOR DIALYSIS PATIENTS. CARLEY (test code = CARLEY) Stock Driver ID - VALDEZ M Lab Interpretation Abnormal (test code = 88332-1) [facility] METABOLIC [id number] 04:28:00 Test Item Value Reference Range Interpretation Comments SODIUM (BEAKER) 138 meq/L 136-145 (test code = 381) POTASSIUM (BEAKER) 4.4 meq/L 3.5-5.1 (test code = 379) CHLORIDE (BEAKER) 104 meq/L 98-107 (test code = 382) CO2 (BEAKER) (test 24 meq/L 22-29 code = 355) BLOOD UREA NITROGEN 40 mg/dL 7-21 H (BEAKER) (test code = 354) CREATININE (BEAKER) 4.27 mg/dL 0.57-1.25 H (test code = 358) GLUCOSE RANDOM 94 mg/dL 70-105 (BEAKER) (test code = 652) CALCIUM (AKER) 8.3 mg/dL 8.4-10.2 L (test code = 697) EGFR (BEAKER) (test 19 mL/min/1.73 ESTIMA ARI GFR IS code = 1092) sq m NOT ACCURATE CREATININE CLEARANCE IN PREDICTING GLOMERULAR FILTRATION RATE . ESTIMATED GFR I S NOT APPLICABLE FOR DIALYSIS PATIEN TS. [facility] 04:14:00 Test Item Value Reference Range Interpretation Comments Magnesium (test code = 2.0 mg/dL 1.6-2.6 62176-5) CARLEY (test code = CARLEY) Stock Driver ID - [facility] Lab Interpretation (test Normal code = 20226-7) [facility]2021-08-26 04:14:00 Test Item Value Reference Range Interpretation Comments Phosphorus (test code = 4.6 mg/dL 2.3-4.7 2777-1) CARLEY (test code = CARLEY) Stock Driver ID - [facility] Lab Interpretation (test Normal code = 08193-0) [facility] 04:14:00 Test Item Value Reference Range Interpretation Comments Magnesium (test code = 2.0 mg/dL 1.6-2.6 46178-0) CARLEY (test code = CARLEY) Stock Driver ID - [facility] Lab Interpretation (test Normal code = 81103-0) [facility]2021-08-26 04:14:00 Test Item Value Reference Range Interpretation Comments Phosphorus (test code = 4.6 mg/dL 2.3-4.7 2777-1) CARLEY (test code = CARLEY) Stock Driver ID - [facility] Lab Interpretation (test Normal code = 85128-7) [facility] 04:14:00 Test Item Value Reference Range Interpretation Comments Magnesium (test code = 2.0 mg/dL 1.6-2.6 44550-4) CARLEY (test code = CARLEY) Stock Driver ID - [facility] Lab Interpretation (test Normal code = 98951-7) [facility]2021-08-26 04:14:00 Test Item Value Reference Range Interpretation Comments Phosphorus (test code = 4.6 mg/dL 2.3-4.7 2777-1) CARLEY (test code = CARLEY) Stock Driver ID Doretha KELLOGG M Lab Interpretation (test Normal code = 44230-2) [facility] 04:14:00 Test Item Value Reference Range Interpretation Comments MAGNESIUM (BEAKER) (test code = 2.0 mg/dL 1.6-2.6 627) Stock Driver ID - VALDEZ [id number] 04:14:00 Test Item Value Reference Range Interpretation Comments PHOSPHORUS (BEAKER) (test code = 4.6 mg/dL 2.3-4.7 604) Stock Driver ID - [facility], [id number] 04:12:00 Test Item Value Reference Range Interpretation Comments PTH (test code = 2731-8) 237.8 pg/mL 8.5-72.5 H CARLEY (test code = CARLEY) Stock Driver SHELBI KELLOGG Lab Interpretation (test Abnormal code = 33545-7) [facility], [id number] 04:12:00 Test Item Value Reference Range Interpretation Comments PTH (test code = 2731-8) 237.8 pg/mL 8.5-72.5 H CARLEY (test code = CARLEY) Stock Driver SHELBI KELLOGG Lab Interpretation (test Abnormal code = 51788-7) [facility], [id number] 04:12:00 Test Item Value Reference Range Interpretation Comments PTH (test code = 2731-8) 237.8 pg/mL 8.5-72.5 H CARLEY (test code = CARLEY) Stock Driver SHELBI KELLOGG Lab Interpretation (test Abnormal code = 40673-1) [facility], [id number] 04:12:00 Test Item Value Reference Range Interpretation Comments PARATHYROID HORMONE INTACT 237.8 pg/mL 8.5-72.5 H (BEAKER) (test code = 577) Stock Driver SHELBI Chen Prothrombin time/INR while on [id number] 03:58:00 Test Item Value Reference Interpretation Comments Range Protime (test code = 19.8 See_Comment H [Autom ated 5902-2) message] The system which generated this result transmitted reference range : 11.9 - 14.2 seconds. The reference range was not used to interpret this result as normal/abnormal . INR (test code = 1.71 See_Comment [Automated Gigamon1-6) message] The system which generated this result transmitted reference range : <=5.90. The reference range was not used to interpret this result as normal/abnormal . CARLEY (test code = RECOMMENDED CARLEY) COUMADIN/WARFARIN INR THERAPY RANGESSTANDARD DOSE: 2.0 - 3.0 Includes: PROPHYLAXIS for venous thrombosis, systemic embolization; TREATMENT for venous thrombosis and/or pulmonary embolus.HIGH RISK: Target INR is 2.5-3.5 for patients with mechanical heart valves. Lab Interpretation Abnormal (test code = 09104-1) [facility]R while on warfarin 2021-02-02 03:58:00 Test Item Value Reference Interpretation Comments Range Protime (test code = 19.8 See_Comment H [Autom ated 5902-2) message] The system which generated this result transmitted reference range : 11.9 - 14.2 seconds. The reference range was not used to interpret this result as normal/abnormal . INR (test code = 1.71 See_Comment [Automated Gigamon1-6) message] The system which generated this result transmitted reference range : <=5.90. The reference range was not used to interpret this result as normal/abnormal . CARLEY (test code = RECOMMENDED CARLEY) COUMADIN/WARFARIN INR THERAPY RANGESSTANDARD DOSE: 2.0 - 3.0 Includes: PROPHYLAXIS for venous thrombosis, systemic embolization; TREATMENT for venous thrombosis and/or pulmonary embolus.HIGH RISK: Target INR is 2.5-3.5 for patients with mechanical heart valves. Lab Interpretation Abnormal (test code = 51524-8) [facility] while on warfarin 2021-02-02 03:58:00 Test Item Value Reference Interpretation Comments Range Protime (test code = 19.8 See_Comment H [Autom ated 5902-2) message] The system which generated this result transmitted reference range : 11.9 - 14.2 seconds. The reference range was not used to interpret this result as normal/abnormal . INR (test code = 1.71 See_Comment [Automated 6301-6) message] The system which generated this result transmitted reference range : <=5.90. The reference range was not used to interpret this result as normal/abnormal . CARLEY (test code = RECOMMENDED CARLEY) COUMADIN/WARFARIN INR THERAPY RANGESSTANDARD DOSE: 2.0 - 3.0 Includes: PROPHYLAXIS for venous thrombosis, systemic embolization; TREATMENT for venous thrombosis and/or pulmonary embolus.HIGH RISK: Target INR is 2.5-3.5 for patients with mechanical heart valves. Lab Interpretation Abnormal (test code = 66665-9) [facility] CenterPROTHROMBIN [id number] 03:58:00 Test Item Value Reference Range Interpretation Comments PROTIME (BEAKER) 19.8 seconds 11.9-14.2 H (test code = 759) INR (BEAKER) (test 1.71 See_Comment [Automat ed message] code = 370) The system Umeng generated this result transmitted ref erence range: <=5.90. The reference range was not used to int erpret this result as normal/abnormal . RECOMMENDED COUMADIN/WARFARIN INR THERAPY RANGESSTANDARD DOSE: 2.0 - 3.0 Includes: PROPHYLAXIS forvenous thrombosis, systemic embolization; TREATMENT for venous thrombosis and/or pulmonary embolus.HIGH RISK: Target INR is 2.5-3.5 for patients with mechanical heart valves.POCT-GLUCOSE [id number] 03:56:00 Test Item Value Reference Range Interpretation Comments POC-GLUCOSE METER 94 mg/dL 70-110 : TESTED A T [facility] 6720 (Stkr.it) (test code = [employer] [facility], 153) 85593: Stock Driver/Techni won ID = [id number] for Comp uesto, Ana Mariazacaseyo POCT-GLUCOSE [id number] 00:10:00 Test Item Value Reference Range Interpretation Comments POC-GLUCOSE METER 83 mg/dL 70-110 : TESTED A T [facility] 6720 (Stkr.it) (test code = [employer] [facility], 153) 72342: Stock Driver/Techni won ID = [id number] for Brody Ovalle POCT-GLUCOSE [id number] 15:37:00 Test Item Value Reference Range Interpretation Comments POC-GLUCOSE METER 73 mg/dL 70-110 : TESTED A T [facility] 6720 (Stkr.it) (test code = [employer] [facility], 1538) 68834: Stock Driver/Techni won ID = [id number] for Atwo od (V), Anurag POCT-GLUCOSE [id number] 14:59:00 Test Item Value Reference Range Interpretation Comments POC-GLUCOSE METER 68 mg/dL 70-110 L : TESTED A T [facility] 6720 (BEAKER) (test code = NORM Tenorio [facility], 1538) 22031: Stock Driver/Techni won ID = [id number] for Atwo od (V), Anurag CT, CHEST, WITHOUT [id number] 14:15:00ICU attending Dr. SteveUnlisted Reason for Exam - Click Yes and Enter Reason Below->YesUnlisted Reason for Exam->Evaluate pleural effusion [facility] : 1975 Sex: MFINAL REPORT TECHNIQUE: CT of the chest WITHOUT intravenous contras t. Dose modulation, iterative reconstruction, and/or weight-based adjustment of the mA/kV was utilized to reduce the radiation dose to as low as reasonably achievable. INDICATION: 45-year-old man with pleural effusion. COMPARISON: Chest CT 01/22/2021. FINDINGS: ABSENCE OF INTRAVENOUS CONTRAST DECREASES SENSITIVITY FOR DETECTION OF FOCAL LESIONS AND VASCULAR PATHOLOGY. LINES/TUBES: Right internal jugular dual lumen catheter terminates in the right atrium. LUNGS AND AIRWAYS: Consolidative opacities in the dependent portions of both lungs, left greater than right. Groundglass attenuation throughout both lungs. PLEURA: Previously described left hemothorax has essentially resolved with residual small simple left pleural effusion. Small simple right pleural effusion. HEART AND MEDIASTINUM: Visualized thyroid gland is normal. No significant mediastinal, hilar, or axillary lymphadenopathy. Cardiomegaly. Unchanged prosthetic mitral valve. Marked decrease in size of the hemopericardium, now trace. Athero sclerotic coronary artery calcifications. BONES AND SOFT TISSUES: No acute osseous abnormality. No sternal dehiscence. Anasarca. UPPER ABDOMEN: Persistent 1.5 x 1 cm hypodensity in the spleen, likely benign. IMPRESSION:Markedly decreased size of the hemopericardium, now trace. Essentially resolved left hemothorax. Small simple bilateral pleural effusions. Consolidative opacities in the dependent portions of both lungs likely represent atelectasis. Superimposed aspiration/pneumonia cannot be excluded. Groundglass attenuation in both lungs may represent pulmonary edema. Signed: Araseli Browning MDReport Verified Date/Time: 02/01/2021 14:15:18 Reading Location: [facility] C013Y CT Body Reading Room CT chest without IV [id number] 14:15:00Interface, External Ris In - 02/01/2021 2:17 PM CDTFINAL REPORT TECHNIQUE:CT of the chest WITHOUT intravenous contrast. Dose modulation, iterative reconstruction, and/or weight-based adjustment of the mA/kV was utilized to reduce the radiation dose to as low as reasonably achievable. INDICATION: 45-year-old man with pleural effusion. COMPARISON: Chest CT 01/22/2021. FINDINGS: ABSENCE OF INTRAVENOUS CONTRAST DECREASES SENSITIVITY FOR DETECTION OF FOCAL LESIONS AND VASCULARPATHOLOGY. LINES/TUBES: Right internal jugular dual lumen catheter terminates in the right atrium. LUNGS AND AIRWAYS: Consolidative opacities in the dependent portions of both lungs, left greater than right. Groundglass attenuation throughout both lungs. PLEURA: Previously described left hemothorax has essentially resolved with residual small simple left pleural effusion. Small simple right pleural effusion. HEART AND MEDIASTINUM: Visualized thyroid gland is normal. No significant mediastinal, hilar, or axillary lymphadenopathy. Cardiomegaly. Unchanged prosthetic mitral valve. Marked decrease in size of the hemopericardium, now trace. Atherosclerotic coronary artery calcifications. BONES AND SOFT TISSUES: No acute osseous abnormality. No sternal dehiscence. Anasarca. UPPER ABDOMEN: Persistent 1.5x 1 cm hypodensity in the spleen, likely benign. IMPRESSION:Markedly decreased size of the hemopericardium, now trace. Essentially resolved left hemothorax. Small simple bilateral pleural effusions. Consolidative opacities in the dependent portions of both lungs likely represent atelectasis. Superimposed aspiration/pneumonia cannot be excluded. Groundglass attenuation in both lungs may represent pulmonary edema. Signed: Araseli Browning MDReport Verified Date/Time: 02/01/2021 14:15:18 Reading Location: [facility] C013Y CT [facility] 2021-02-01 14:15:00Interface, External Ris In - 02/01/2021 2:17 PM CDTFINAL REPORT TECHNIQUE:CT of the chest WITHOUT intravenous contrast. Dose modulation, iterative reconstruction, and/or weight-based adjustment of the mA/kV was utilized to reduce the radiation dose to as low as reasonably achievable. INDICATION: 45-year-old man with pleural effusion. COMPARISON: Chest CT 01/22/2021. FINDINGS: ABSENCE OF INTRAVENOUS CONTRAST DECREASES SENSITIVITY FOR DETECTION OF FOCAL LESIONS AND VASCULARPATHOLOGY. LINES/TUBES: Right internal jugular dual lumen catheter terminates in the right atrium. LUNGS AND AIRWAYS: Consolidative opacities in the dependent portions of both lungs, left greater than right. Groundglass attenuation throughout both lungs. PLEURA: Previously described left hemothorax has essentially resolved with residual small simple left pleural effusion. Small simple right pleural ef fusion. HEART AND MEDIASTINUM: Visualized thyroid gland is normal. No significant mediastinal, hilar, or axillary lymphadenopathy. Cardiomegaly. Unchanged prosthetic mitral valve. Marked decrease in size of the hemopericardium, now trace. Atherosclerotic coronary artery calcifications. BONES AND SOFT TISSUES: No acute osseous abnormality. No sternal dehiscence. Anasarca. UPPER ABDOMEN: Persistent 1.5x 1 cm hypodensity in the spleen, likely benign. IMPRESSION:Markedly decreased size of the hemopericardium, now trace. Essentially resolved left hemothorax. Small simple bilateral pleural effusions. Consolidative opacities in the dependent portions of both lungs likely represent atelectasis. Superimposed aspiration/pneumonia cannot be excluded. Groundglass attenuation in both lungs may represent pulmonary edema. Signed: Araseli Browning MDReport Verified Date/Time: 02/01/2021 14:15:18 Reading Location: [facility] C013Y CT [facility] 2021-02-01 14:15:00Interface, External Ris In - 02/01/2021 2:17 PM CDTFINAL REPORT TECHNIQUE:CT of the chest WITHOUT intravenous contrast. Dose modulation, iterative reconstruction, and/or weight-based adjustment of the mA/kV was utilized to reduce the radiation dose to as low as reasonably achievable. INDICATION: 45-year-old man with pleural effusion. COMPARISON: Chest CT 01/22/2021. FINDINGS: ABSENCE OF INTRAVENOUS CONTRAST DECREASES SENSITIVITY FOR DETECTION OF FOCAL LESIONS AND VASCULARPATHOLOGY. LINES/TUBES: Right internal jugular dual lumen catheter terminates in the right atrium. LUNGS AND AIRWAYS: Consolidative opacities in the dependent portions of both lungs, left greater than right. Groundglass attenuation throughout both lungs. PLEURA: Previously described left hemothorax has essentially resolved with residual small simple left pleural effusion. Small simple right pleural ef fusion. HEART AND MEDIASTINUM: Visualized thyroid gland is normal. No significant mediastinal, hilar, or axillary lymphadenopathy. Cardiomegaly. Unchanged prosthetic mitral valve. Marked decrease in size of the hemopericardium, now trace. Atherosclerotic coronary artery calcifications. BONES AND SOFT TISSUES: No acute osseous abnormality. No sternal dehiscence. Anasarca. UPPER ABDOMEN: Persistent 1.5x 1 cm hypodensity in the spleen, likely benign. IMPRESSION:Markedly decreased size of the hemopericardium, now trace. Essentially resolved left hemothorax. Small simple bilateral pleural effusions. Consolidative opacities in the dependent portions of both lungs likely represent atelectasis. Superimposed aspiration/pneumonia cannot be excluded. Groundglass attenuation in both lungs may represent pulmonary edema. Signed: Araseli Browning MDReport Verified Date/Time: 02/01/2021 14:15:18 Reading Location: [facility] B1 C013Y CT Body Reading [facility] [id number] 11:48:00 Test Item Value Reference Range Interpretation Comments POC-GLUCOSE METER 64 mg/dL 70-110 L : TESTED A T [facility] 6720 (BEAKER) (test code = NORM [place], 1538) 207[address]: Stock Driver/Techni won ID = [id number] for Edwin gardner (contract)Terence RAD, CHEST, 1 VIEW, NON [id number] 07:53:00Reason for exam:- >intubatedShould this be performed at the bedside?->Yes [facility] : 1975 Sex: MFINAL REPORT RAD, CHEST, 1 VIEW, NON DEPT INDICATION: intubated TESFAYE RISON: Prior day's exam FINDINGS: Portable frontal view of the chest. IMPRESSION: Support Lines: Dialysis catheter tip overlies right atrium. Sternotomy wires. Lungs and pleura: Bilateral airspace opacities concerning for multifocal pneumonia versus multifocal edema. Bilateral effusions are increased. No pneumothorax.Heart and mediastinum: Stable contours. Stable surgical changes.Additional findings: None. Signed: Re Cantu Verified Date/Time: 02/01/2021 07:53:28 Reading Location:[facility] Reading Room CALCIUM, [id number] 05:25:00 Test Item Value Reference Range Interpretation Comments CALCIUM IONIZED (BEAKER) (test 1.09 mmol/L 1.12-1.27 L code = 698) PH, BLOOD (BEAKER) (test code = 7.44 1810) BASIC METABOLIC [id number] 05:19:00 Test Item Value Reference Range Interpretation Comments SODIUM (BEAKER) 134 meq/L 136-145 L (test code = 381) POTASSIUM (BEAKER) 4.8 meq/L 3.5-5.1 (test code = 379) CHLORIDE (BEAKER) 101 meq/L 98-107 (test code = 382) CO2 (BEAKER) (test 24 meq/L 22-29 code = 355) BLOOD UREA NITROGEN 60 mg/dL 7-21 H (BEAKER) (test code = 354) CREATININE (BEAKER) 5.14 mg/dL 0.57-1.25 H (test code = 358) GLUCOSE RANDOM 94 mg/dL 70-105 (BEAKER) (test code = 652) CALCIUM (BEAKER) 8.1 mg/dL 8.4-10.2 L (test code = 697) EGFR (BEAKER) (test 15 mL/min/1.73 ESTIMA ARI GFR IS code = 1092) sq m NOT ACCURATE CREATININE CLEARANCE IN PREDICTING GLOMERULAR FILTRATION RATE . ESTIMATED GFR I S NOT APPLICABLE FOR DIALYSIS PATIEN TS. Stock Driver ID - PIRAFY [id number] 05:13:00 Test Item Value Reference Range Interpretation Comments MAGNESIUM (BEAKER) (test code = 2.0 mg/dL 1.6-2.6 627) Stock Driver ID - LINA [id number] 05:13:00 Test Item Value Reference Range Interpretation Comments PHOSPHORUS (BEAKER) (test code = 4.9 mg/dL 2.3-4.7 H 604) Stock Driver ID - LINA LPROTHROMBIN TIME/[id number] 04:50:00 Test Item Value Reference Range Interpretation Comments PROTIME (BEAKER) 17.7 seconds 11.9-14.2 H (test code = 759) INR (BEAKER) (test 1.48 See_Comment [Automat ed message] code = 370) The system Umeng generated this result transmitted ref erence range: <=5.90. The reference range was not used to int erpret this result as normal/abnormal . RECOMMENDED COUMADIN/WARFARIN INR THERAPY RANGESSTANDARD DOSE: 2.0 - 3.0 Includes: PROPHYLAXIS forvenous thrombosis, systemic embolization; TREATMENT for venous thrombosis and/or pulmonary embolus.HIGH RISK: Target INR is 2.5-3.5 for patients with mechanical heart valves.CBC W/PLT COUNT & AUTO DIFFERENTIAL 2021-02-01 04:41:00 Test Item Value Reference Range Interpretation Comments WHITE BLOOD CELL COUNT (BEAKER) 10.9 K/ L 3.5-10.5 H (test code = 775) RED BLOOD CELL COUNT (BEAKER) 2.57 M/ L 4.63-6.08 L (test code = 761) HEMOGLOBIN (BEAKER) (test code = 7.5 GM/DL 13.7-17.5 L 410) HEMATOCRIT (BEAKER) (test code = 23.1 % 40.1-51.0 L 411) MEAN CORPUSCULAR VOLUME (BEAKER) 89.9 fL 79.0-92.2 (test code = 753) MEAN CORPUSCULAR HEMOGLOBIN 29.2 pg 25.7-32.2 (BEAKER) (test code = 751) MEAN CORPUSCULAR HEMOGLOBIN CONC 32.5 GM/DL 32.3-36.5 (BEAKER) (test code = 752) RED CELL DISTRIBUTION WIDTH 16.8 % 11.6-14.4 H (BEAKER) (test code = 412) PLATELET COUNT (BEAKER) (test 207 K/CU MM 150-450 code = 756) MEAN PLATELET VOLUME (BEAKER) 10.3 fL 9.4-12.4 (test code = 754) NUCLEATED RED BLOOD CELLS 0 /100 WBC 0-0 (BEAKER) (test code = 413) NEUTROPHILS RELATIVE PERCENT 83 % (BEAKER) (test code = 429) LYMPHOCYTES RELATIVE PERCENT 6 % (BEAKER) (test code = 430) MONOCYTES RELATIVE PERCENT 7 % (BEAKER) (test code = 431) EOSINOPHILS RELATIVE PERCENT 3 % (BEAKER) (test code = 432) BASOPHILS RELATIVE PERCENT 1 % (BEAKER) (test code = 437) NEUTROPHILS ABSOLUTE COUNT 9.02 K/ L 1.78-5.38 H (BEAKER) (test code = 670) LYMPHOCYTES ABSOLUTE COUNT 0.64 K/ L 1.32-3.57 L (BEAKER) (test code = 414) MONOCYTES ABSOLUTE COUNT (BEAKER) 0.78 K/ L 0.30-0.82 (test code = 415) EOSINOPHILS ABSOLUTE COUNT 0.29 K/ L 0.04-0.54 (BEAKER) (test code = 416) BASOPHILS ABSOLUTE COUNT (BEAKER) 0.06 K/ L 0.01-0.08 (test code = 417) IMMATURE GRANULOCYTES-RELATIVE 1 % 0-1 PERCENT (BEAKER) (test code = 2801) POCT-GLUCOSE [id number] 01:16:00 Test Item Value Reference Range Interpretation Comments POC-GLUCOSE METER 79 mg/dL 70-110 : TESTED A T [facility] 6720 (BEAKER) (test code = [facility], 1538) 82685: Stock Driver/Techni won ID = [id number] for MUSE BE, CRESCENCIO POCT-GLUCOSE [id number] 22:03:00 Test Item Value Reference Range Interpretation Comments POC-GLUCOSE METER 83 mg/dL 70-110 : TESTED A T [facility] 6720 (BEAKER) (test code = [facility] [employer] [facility], 1538) 99134: Stock Driver/Techni won ID = [id number] for MUSE BE, CRESCENCIO Hemoglobin and [id number] 17:25:00 Test Item Value Reference Range Interpretation Comments Hemoglobin (test code 7.5 See_Comment L [Auto mated = 786-4) message] The system which generated this result transmit ari reference range : 13.7 - 17.5 GM/ DL. The reference range was not u sed to interpret th is result as normal/abnormal . Hematocrit (test code 23.1 % 40.1-51 L = 4544-3) CARLEY (test code = CARLEY) Stock Driver ID - [id number] Lab Interpretation Abnormal (test code = 60334-8) [facility] Center[facility]em[facility] and [id number] 17:25:00 Test Item Value Reference Range Interpretation Comments Hemoglobin (test code 7.5 See_Comment L [Auto mated = 786-4) message] The system which generated this result transmit ari reference range : 13.7 - 17.5 GM/ DL. The reference range was not u sed to interpret th is result as normal/abnormal . Hematocrit (test code 23.1 % 40.1-51 L = 4544-3) CARLEY (test code = CARLEY) Stock Driver ID - [id number] Lab Interpretation Abnormal (test code = 95954-4) [facility] CenterHemoglobin and [id number] 17:25:00 Test Item Value Reference Range Interpretation Comments Hemoglobin (test code 7.5 See_Comment L [Auto mated = 786-4) message] The system which generated this result transmit ari reference range : 13.7 - 17.5 GM/ DL. The reference range was not u sed to interpret th is result as normal/abnormal . Hematocrit (test code 23.1 % 40.1-51 L = 4544-3) CARLEY (test code = CARLEY) Stock Driver ID - [id number] Lab Interpretation Abnormal (test code = 98733-9) [facility] CenterHEMOGLOBIN AND [id number] 17:25:00 Test Item Value Reference Range Interpretation Comments HEMOGLOBIN (BEAKER) (test code = 7.5 GM/DL 13.7-17.5 L 410) HEMATOCRIT (BEAKER) (test code = 23.1 % 40.1-51.0 L 411) Stock Driver ID - [id number]-GLUCOSE [id number] 11:36:00 Test Item Value Reference Range Interpretation Comments POC-GLUCOSE METER 105 mg/dL 70-110 : TESTED A T [facility] 6720 (BEAKER) (test code = [facility] [employer] [facility], 1538) 26394: Stock Driver/Techni won ID = [id number] for RONAL PEREZ POCT-GLUCOSE [id number] 07:26:00 Test Item Value Reference Range Interpretation Comments POC-GLUCOSE METER 69 mg/dL 70-110 L : TESTED A T [facility] 6720 (BEAKER) (test code = [employer] [facility], 1538) 23754: Stock Driver/Techni won ID = [id number] for RONAL BROCK BASIC METABOLIC [id number] 05:40:00 Test Item Value Reference Range Interpretation Comments SODIUM (BEAKER) 137 meq/L 136-145 (test code = 381) POTASSIUM (BEAKER) 4.5 meq/L 3.5-5.1 (test code = 379) CHLORIDE (BEAKER) 103 meq/L 98-107 (test code = 382) CO2 (BEAKER) (test 27 meq/L 22-29 code = 355) BLOOD UREA NITROGEN 40 mg/dL 7-21 H (BEAKER) (test code = 354) CREATININE (BEAKER) 3.43 mg/dL 0.57-1.25 H (test code = 358) GLUCOSE RANDOM 85 mg/dL 70-105 (BEAKER) (test code = 652) CALCIUM (BEAKER) 8.3 mg/dL 8.4-10.2 L (test code = 697) EGFR (BEAKER) (test 24 mL/min/1.73 ESTIMA ARI GFR IS code = 1092) sq m NOT ACCURATE CREATININE CLEARANCE IN PREDICTING GLOMERULAR FILTRATION RATE . ESTIMATED GFR I S NOT APPLICABLE FOR DIALYSIS PATIEN TS. Stock Driver ID - LINA [id number] 05:24:00 Test Item Value Reference Range Interpretation Comments MAGNESIUM (BEAKER) (test code = 2.0 mg/dL 1.6-2.6 627) Stock Driver ID - LINA [id number] 05:24:00 Test Item Value Reference Range Interpretation Comments PHOSPHORUS (BEAKER) (test code = 4.1 mg/dL 2.3-4.7 604) Stock Driver ID - LINA LCBC W/PLT COUNT & AUTO [id number] 05:04:00 Test Item Value Reference Range Interpretation Comments WHITE BLOOD CELL COUNT (BEAKER) 9.1 K/ L 3.5-10.5 (test code = 775) RED BLOOD CELL COUNT (BEAKER) 2.62 M/ L 4.63-6.08 L (test code = 761) HEMOGLOBIN (BEAKER) (test code = 7.6 GM/DL 13.7-17.5 L 410) HEMATOCRIT (BEAKER) (test code = 23.9 % 40.1-51.0 L 411) MEAN CORPUSCULAR VOLUME (BEAKER) 91.2 fL 79.0-92.2 (test code = 753) MEAN CORPUSCULAR HEMOGLOBIN 29.0 pg 25.7-32.2 (BEAKER) (test code = 751) MEAN CORPUSCULAR HEMOGLOBIN CONC 31.8 GM/DL 32.3-36.5 L (BEAKER) (test code = 752) RED CELL DISTRIBUTION WIDTH 17.1 % 11.6-14.4 H (BEAKER) (test code = 412) PLATELET COUNT (BEAKER) (test 165 K/CU MM 150-450 code = 756) MEAN PLATELET VOLUME (BEAKER) 10.8 fL 9.4-12.4 (test code = 754) NUCLEATED RED BLOOD CELLS 0 /100 WBC 0-0 (BEAKER) (test code = 413) NEUTROPHILS RELATIVE PERCENT 81 % (BEAKER) (test code = 429) LYMPHOCYTES RELATIVE PERCENT 6 % (BEAKER) (test code = 430) MONOCYTES RELATIVE PERCENT 8 % (BEAKER) (test code = 431) EOSINOPHILS RELATIVE PERCENT 5 % (BEAKER) (test code = 432) BASOPHILS RELATIVE PERCENT 0 % (BEAKER) (test code = 437) NEUTROPHILS ABSOLUTE COUNT 7.34 K/ L 1.78-5.38 H (BEAKER) (test code = 670) LYMPHOCYTES ABSOLUTE COUNT 0.56 K/ L 1.32-3.57 L (BEAKER) (test code = 414) MONOCYTES ABSOLUTE COUNT (BEAKER) 0.69 K/ L 0.30-0.82 (test code = 415) EOSINOPHILS ABSOLUTE COUNT 0.41 K/ L 0.04-0.54 (BEAKER) (test code = 416) BASOPHILS ABSOLUTE COUNT (BEAKER) 0.04 K/ L 0.01-0.08 (test code = 417) IMMATURE GRANULOCYTES-RELATIVE 1 % 0-1 PERCENT (BEAKER) (test code = 2801) Lactic Acid, [id number] 04:53:00 Test Item Value Reference Range Interpretation Comments Lactate, Art (test code = 0.4 mmol/L 0.5-2.2 L 2874) CARLEY (test code = CARLEY) Stock Driver ID - PIAYA L Lab Interpretation (test Abnormal code = 61956-7) [facility] CenterL[facility], [id number] 04:53:00 Test Item Value Reference Range Interpretation Comments Lactate, Art (test code = 0.4 mmol/L 0.5-2.2 L 2874) CARLEY (test code = CARLEY) Stock Driver ID - PIAYA L Lab Interpretation (test Abnormal code = 05490-6) [facility] CenterL[facility], [id number] 04:53:00 Test Item Value Reference Range Interpretation Comments Lactate, Art (test code = 0.4 mmol/L 0.5-2.2 L 2874) CARLEY (test code = CARLEY) Stock Driver ID - PIAYA L Lab Interpretation (test Abnormal code = 83306-7) [facility] CenterLACTIC ACID, [id number] 04:53:00 Test Item Value Reference Range Interpretation Comments LACTATE BLOOD ARTERIAL (2) 0.4 mmol/L 0.5-2.2 L (BEAKER) (test code = 2874) Stock Driver ID - LINA [id number] 04:49:00 Test Item Value Reference Range Interpretation Comments PTT (test code = 40.1 See_Comment H [Automated message] 90825-6) The system Umeng generated this result transmitted ref erence range: 22.5 - 3 6.0 seconds. The reference range was not used to int erpret this result as normal/abnormal . Lab Interpretation (test Abnormal code = 68509-2) [facility] CenterPT/[id number] 04:49:00 Test Item Value Reference Interpretation Comments Range Protime (test code = 17.9 See_Comment H [Autom ated 5902-2) message] The system which generated this result transmitted reference range : 11.9 - 14.2 seconds. The reference range was not used to interpret this result as normal/abnormal . INR (test code = 1.50 See_Comment [Automated 8944-6) message] The system which generated this result transmitted reference range : <=5.90. The reference range was not used to interpret this result as normal/abnormal . PTT (test code = 40.1 See_Comment H [Automated 12403-3) message] The system which generated this result transmitted reference range : 22.5 - 36.0 seconds. The reference range was not used to interpret this result as normal/abnormal . CARLEY (test code = RECOMMENDED CARLEY) COUMADIN/WARFARIN INR THERAPY RANGESSTANDARD DOSE: 2.0 - 3.0 Includes: PROPHYLAXIS for venous thrombosis, systemic embolization; TREATMENT for venous thrombosis and/or pulmonary embolus.HIGH RISK: Target INR is 2.5-3.5 for patients with mechanical heart valves. Lab Interpretation Abnormal (test code = 02301-9) [facility] [id number] 04:49:00 Test Item Value Reference Range Interpretation Comments PTT (test code = 40.1 See_Comment H [Automated message] 71562-6) The system Um[employer] generated this result transmitted ref erence range: 22.5 - 3 6.0 seconds. The reference range was not used to int erpret this result as normal/abnormal . Lab Interpretation (test Abnormal code = 71688-4) [id number] 04:[facility]:00 Test Item Value Reference Interpretation Comments Range Protime (test code = 17.9 See_Comment H [Autom ated 5902-2) message] The system which generated this result transmitted reference range : 11.9 - 14.2 seconds. The reference range was not used to interpret this result as normal/abnormal . INR (test code = 1.50 See_Comment [Automated 6201-6) message] The system which generated this result transmitted reference range : <=5.90. The reference range was not used to interpret this result as normal/abnormal . PTT (test code = 40.1 See_Comment H [Automated 94118-9) message] The system which generated this result transmitted reference range : 22.5 - 36.0 seconds. The reference range was not used to interpret this result as normal/abnormal . CARLEY (test code = RECOMMENDED CARLEY) COUMADIN/WARFARIN INR THERAPY RANGESSTANDARD DOSE: 2.0 - 3.0 Includes: PROPHYLAXIS for venous thrombosis, systemic embolization; TREATMENT for venous thrombosis and/or pulmonary embolus.HIGH RISK: Target INR is 2.5-3.5 for patients with mechanical heart valves. Lab Interpretation Abnormal (test code = 44557-1) [facility] Test Item Value Reference Range Interpretation Comments PTT (test code = 40.1 See_Comment H [Automated message] 94775-5) The system [employer] h generated this result transmitted ref erence range: 22.5 - 3 6.0 seconds. The reference range was not used to int erpret this result as normal/abnormal . Lab Interpretation (test Abnormal code = 64914-5) [facility][id number] 04:49:00 Test Item Value Reference Interpretation Comments Range Protime (test code = 17.9 See_Comment H [Autom ated 5902-2) message] The system which generated this result transmitted reference range : 11.9 - 14.2 seconds. The reference range was not used to interpret this result as normal/abnormal . INR (test code = 1.50 See_Comment [Automated 6521-6) message] The system which generated this result transmitted reference range : <=5.90. The reference range was not used to interpret this result as normal/abnormal . PTT (test code = 40.1 See_Comment H [Automated 94184-7) message] The system which generated this result transmitted reference range : 22.5 - 36.0 seconds. The reference range was not used to interpret this result as normal/abnormal . CARLEY (test code = RECOMMENDED CARLEY) COUMADIN/WARFARIN INR THERAPY RANGESSTANDARD DOSE: 2.0 - 3.0 Includes: PROPHYLAXIS for venous thrombosis, systemic embolization; TREATMENT for venous thrombosis and/or pulmonary embolus.HIGH RISK: Target INR is 2.5-3.5 for patients with mechanical heart valves. Lab Interpretation Abnormal (test code = 79740-5) [facility] Test Item Value Reference Range Interpretation Comments PARTIAL THROMBOPLASTIN TIME 40.1 seconds 22.5-36.0 H (BEAKER) (test code = 760) [id number] 04:49:00 Test Item Value Reference Range Interpretation Comments PROTIME (BEAKER) (test 17.9 seconds 11.9-14.2 H code = 759) INR (BEAKER) (test 1.50 See_Comment [Automat ed code = 370) message] The sy stem which generated this result transmitted reference range : <=5.90. The reference range was not used to interpret this result as normal/abnormal . PARTIAL THROMBOPLASTIN 40.1 seconds 22.5-36.0 H TIME (BEAKER) (test code = 760) RECOMMENDED COUMADIN/WARFARIN INR THERAPY RANGESSTANDARD DOSE: 2.0 - 3.0 Includes: PROPHYLAXIS forvenous thrombosis, systemic embolization; TREATMENT for venous thrombosis and/or pulmonary embolus.HIGH RISK: Target INR is 2.5-3.5 for patients with mechanical heart valves.PROTHROMBIN TIME/[id number] 04:48:00 Test Item Value Reference Range Interpretation Comments PROTIME (BEAKER) 17.9 seconds 11.9-14.2 H (test code = 759) INR (BEAKER) (test 1.50 See_Comment [Automat ed message] code = 370) The system whic h generated this result transmitted ref erence range: <=5.90. The reference range was not used to int erpret this result as normal/abnormal . RECOMMENDED COUMADIN/WARFARIN INR THERAPY RANGESSTANDARD DOSE: 2.0 - 3.0 Includes: PROPHYLAXIS forvenous thrombosis, systemic embolization; TREATMENT for venous thrombosis and/or pulmonary embolus.HIGH RISK: Target INR is 2.5-3.5 for patients with mechanical heart valves.Blood gas, [id number] 04:44:00 Test Item Value Reference Range Interpretation Comments pH, Arterial (test code 7.49 7.35-7.45 H = 2744-1) pCO2, Arterial (test 37 See_Comment [Autom ated message] code = 2019-01) The system [facility] generated this result transmit ari reference range : 35 - 45 mm Hg. The reference range was not used to interpret this result as normal/abnormal . pO2, Arterial (test 130 See_Comment H [Automa ari message] code = 2703-7) The system [facility] generated this result transmit ari reference range : 80 - 90 mm Hg. The reference range was not used to interpret this result as normal/abnormal . O2 Sat, Arterial (test 98.8 % 96-97 H code = 2708-6) HCO3, Arterial (test 28 mmol/L 21-29 code = 1960-4) Base Excess, Arterial 4.6 mmol/L -2-3 H (test code = 1925-7) Patient Temperature 37.0 (test code = 8310-5) FIO2 (test code = 1819) 35 Lab Interpretation Abnormal (test code = 24746-4) [facility], [id number] 04:44:00 Test Item Value Reference Range Interpretation Comments pH, Arterial (test code 7.49 7.35-7.45 H = 2744-1) pCO2, Arterial (test 37 See_Comment [Autom ated message] code = 2019-01) The system [facility] generated this result transmit ari reference range : 35 - 45 mm Hg. The reference range was not used to interpret this result as normal/abnormal . pO2, Arterial (test 130 See_Comment H [Automa ari message] code = 2703-7) The system [facility] generated this result transmit ari reference range : 80 - 90 mm Hg. The reference range was not used to interpret this result as normal/abnormal . O2 Sat, Arterial (test 98.8 % 96-97 H code = 2708-6) HCO3, Arterial (test 28 mmol/L 21-29 code = 1960-4) Base Excess, Arterial 4.6 mmol/L -2-3 H (test code = 1925-7) Patient Temperature 37.0 (test code = 8310-5) FIO2 (test code = 1819) 35 Lab Interpretation Abnormal (test code = 03745-5) [facility], [id number] 04:44:00 Test Item Value Reference Range Interpretation Comments pH, Arterial (test code 7.49 7.35-7.45 H = 2744-1) pCO2, Arterial (test 37 See_Comment [Autom ated message] code = 2019-8) The system [employer] generated this result transmit ari reference range : 35 - 45 mm Hg. The reference range was not used to interpret this result as normal/abnormal . pO2, Arterial (test 130 See_Comment H [Automa ari message] code = 2703-7) The system [employer] generated this result transmit ari reference range : 80 - 90 mm Hg. The reference range was not used to interpret this result as normal/abnormal . O2 Sat, Arterial (test 98.8 % 96-97 H code = 2708-6) HCO3, Arterial (test 28 mmol/L 21-29 code = 1960-4) Base Excess, Arterial 4.6 mmol/L -2-3 H (test code = 1925-7) Patient Temperature 37.0 (test code = 8310-5) FIO2 (test code = 1819) 35 Lab Interpretation Abnormal (test code = 97537-9) [facility] GAS, [id number] 04:44:00 Test Item Value Reference Range Interpretation Comments PH ARTERIAL (BEAKER) (test code = 7.49 7.35-7.45 H 383) PCO2 ARTERIAL (BEAKER) (test code 37 mm Hg 35-45 = 384) PO2 ARTERIAL (BEAKER) (test code = 130 mm Hg 80-90 H 385) O2 SATURATION ARTERIAL (BEAKER) 98.8 % 96.0-97.0 H (test code = 386) HCO3 ARTERIAL (BEAKER) (test code 28 mmol/L 21-29 = 388) BASE EXCESS ARTERIAL (BEAKER) 4.6 mmol/L -2.0-3.0 H (test code = 387) PATIENT TEMPERATURE (BEAKER) (test 37.0 code = 1818) FIO2 (BEAKER) (test code = 1819) 35.0 CALCIUM, [id number] 04:44:00 Test Item Value Reference Range Interpretation Comments CALCIUM IONIZED (BEAKER) (test 1.11 mmol/L 1.12-1.27 L code = 698) PH, BLOOD (BEAKER) (test code = 7.49 1810) RAD, CHEST, 1 VIEW, NON [id number] 04:44:00Reason for exam:- >intubatedShould this be performed at the bedside?->Yes [facility] : 1975 Sex: MFINAL REPORT Chest one view. Clinical history: intubated Comparison: Chest radiograph 01/30/2021. Technique: A single frontal view of the chest was obtained. Findings:There is a right IJ central venous catheter with tip in the right atrium. There is a left axillary line. There has been interval removal of enteric tube. An endotracheal tube is not identified. There is a cardiac valve prosthesis. There are median sternotomy wires.The cardiomediastinal contours are stable. There are persistent diffuse bilateral airspace opacities. There are small bilateral perfusions. There is no pneumothorax. Signed: Buck Warren MDReport Verified Date/Time: 01/31/2021 04:44:53 Prepare Leuko-Red [id number] 23:54:00 Test Item Value Reference Range Interpretation Comments CROSSMATCH (test code = 2264) COMPATIBLE Unit ABO (test code = O Neg 6260515) UNIT NUMBER (test code = [id number] 934-0) Status (test code = 7597362) TX_TIMEINCHART Blood Bank Product (test code RED BLOOD CELLS = 2263) PRODUCT CODE (test code = N6931E02 933-2) [facility] [id number] 23:54:00 Test Item Value Reference Range Interpretation Comments CROSSMATCH (test code = 2264) COMPATIBLE Unit ABO (test code = O Neg 1373541) UNIT NUMBER (test code = [id number] 934-0) Status (test code = 1860967) TX_TIMEINCHART Blood Bank Product (test code RED BLOOD CELLS = 2263) PRODUCT CODE (test code = R3548V12 933-2) [facility] [id number] 23:54:00 Test Item Value Reference Range Interpretation Comments CROSSMATCH (test code = 2264) COMPATIBLE Unit ABO (test code = O Neg 6452893) UNIT NUMBER (test code = [id number] 934-0) Status (test code = 3187318) TX_TIMEINCHART Blood Bank Product (test code RED BLOOD CELLS = 2263) PRODUCT CODE (test code = M0098P35 933-2) [facility]Stat [id number] 21:11:00 Test Item Value Reference Range Interpretation Comments Hemoglobin (test code = 7.8 See_Comment L [Au tomated message] 786-4) The system [employer] generated this result transmitted ref erence range: 13.0 - 1 6.8 GM/DL. The refe rence range was not u sed to interpret this result as normal/abnor mal. Hematocrit (test code = 23.0 % 40-50 L 4544-3) Lab Interpretation (test Abnormal code = 22067-2) [facility] [id number] 21:11:00 Test Item Value Reference Range Interpretation Comments Hemoglobin (test code = 7.8 See_Comment L [Au tomated message] 786-4) The system [employer] generated this result transmitted ref erence range: 13.0 - 1 6.8 GM/DL. The refe rence range was not u sed to interpret this result as normal/abnor mal. Hematocrit (test code = 23.0 % 40-50 L 4544-3) Lab Interpretation (test Abnormal code = 73524-4) [facility] [id number] 21:11:00 Test Item Value Reference Range Interpretation Comments Hemoglobin (test code = 7.8 See_Comment L [Au tomated message] 786-4) The system [employer] generated this result transmitted ref erence range: 13.0 - 1 6.8 GM/DL. The refe rence range was not u sed to interpret this result as normal/abnor mal. Hematocrit (test code = 23.0 % 40-50 L 4544-3) Lab Interpretation (test Abnormal code = 77317-4) [facility], [id number] 21:11:00 Test Item Value Reference Range Interpretation Comments PH ARTERIAL (BEAKER) (test code = 7.50 7.35-7.45 H 383) PCO2 ARTERIAL (BEAKER) (test code 38 mm Hg 35-45 = 384) PO2 ARTERIAL (BEAKER) (test code = 97 mm Hg 80-90 H 385) O2 SATURATION ARTERIAL (BEAKER) 97.9 % 96.0-97.0 H (test code = 386) HCO3 ARTERIAL (BEAKER) (test code 29 mmol/L 21-29 = 388) BASE EXCESS ARTERIAL (BEAKER) 5.8 mmol/L -2.0-3.0 H (test code = 387) PATIENT TEMPERATURE (BEAKER) (test 37.0 code = 1818) FIO2 (BEAKER) (test code = 1819) 35.0 HGB/HCT (H&H) - STAT [id number] 21:11:00 Test Item Value Reference Range Interpretation Comments HEMOGLOBIN (BEAKER) (test code = 7.8 GM/DL 13.0-16.8 L 410) HEMATOCRIT (BEAKER) (test code = 23.0 % 40.0-50.0 L 411) Glucose-Stat [id number] 21:10:00 Test Item Value Reference Range Interpretation Comments Glucose (test code = 2345-7) 106 mg/dL 70-110 Lab Interpretation (test code = Normal 39607-0) [facility] [id number] 21:10:00 Test Item Value Reference Range Interpretation Comments Sodium (test code = 2951-2) 135 meq/L 136-145 L Lab Interpretation (test code = Abnormal 29241-0) [facility] [id number] 21:10:00 Test Item Value Reference Range Interpretation Comments Potassium (test code = 2823-3) 3.8 meq/L 3.6-5.5 Lab Interpretation (test code = Normal 37382-6) [facility] [id number] 21:10:00 Test Item Value Reference Range Interpretation Comments Glucose (test code = 2345-7) 106 mg/dL 70-110 Lab Interpretation (test code = Normal 52655-2) [facility] Na-Stat [id number] 21:10:00 Test Item Value Reference Range Interpretation Comments Sodium (test code = 2951-2) 135 meq/L 136-145 L Lab Interpretation (test code = Abnormal 90322-2) [facility]Stat [id number] 21:10:00 Test Item Value Reference Range Interpretation Comments Potassium (test code = 2823-3) 3.8 meq/L 3.6-5.5 Lab Interpretation (test code = Normal 23671-6) [facility]Stat [id number] 21:10:00 Test Item Value Reference Range Interpretation Comments Glucose (test code = 2345-7) 106 mg/dL 70-110 Lab Interpretation (test code = Normal 79084-1) [facility] Na-Stat [id number] 21:10:00 Test Item Value Reference Range Interpretation Comments Sodium (test code = 2951-2) 135 meq/L 136-145 L Lab Interpretation (test code = Abnormal 84167-5) [facility]assium[facility]Stat [id number] 21:10:00 Test Item Value Reference Range Interpretation Comments Potassium (test code = 2823-3) 3.8 meq/L 3.6-5.5 Lab Interpretation (test code = Normal 32574-1) [facility]SE[facility] [id number] 21:10:00 Test Item Value Reference Range Interpretation Comments GLUCOSE RANDOM (BEAKER) (test code 106 mg/dL 70-110 = 652) SODIUM NA-STAT [id number] 21:10:00 Test Item Value Reference Range Interpretation Comments SODIUM (BEAKER) (test code = 381) 135 meq/L 136-145 L POTASSIUM-STAT [id number] 21:10:00 Test Item Value Reference Range Interpretation Comments POTASSIUM (BEAKER) (test code = 3.8 meq/L 3.6-5.5 379) BASIC METABOLIC [id number] 19:47:00 Test Item Value Reference Range Interpretation Comments SODIUM (BEAKER) 137 meq/L 136-145 (test code = 381) POTASSIUM (BEAKER) 3.8 meq/L 3.5-5.1 (test code = 379) CHLORIDE (BEAKER) 103 meq/L 98-107 (test code = 382) CO2 (BEAKER) (test 25 meq/L 22-29 code = 355) BLOOD UREA NITROGEN 32 mg/dL 7-21 H (BEAKER) (test code = 354) CREATININE (BEAKER) 2.77 mg/dL 0.57-1.25 H (test code = 358) GLUCOSE RANDOM 111 mg/dL 70-105 H (BEAKER) (test code = 652) CALCIUM (BEAKER) 8.0 mg/dL 8.4-10.2 L (test code = 697) EGFR (BEAKER) (test 31 mL/min/1.73 ESTIMA ARI GFR IS code = 1092) sq m NOT ACCURATE CREATININE CLEARANCE IN PREDICTING GLOMERULAR FILTRATION RATE . ESTIMATED GFR I S NOT APPLICABLE FOR DIALYSIS PATIEN TS. Stock Driver ID - [id number] 19:47:00 Test Item Value Reference Range Interpretation Comments MAGNESIUM (BEAKER) (test code = 1.8 mg/dL 1.6-2.6 627) Stock Driver ID - [id number] TIME/[id number] 19:36:00 Test Item Value Reference Range Interpretation Comments PROTIME (BEAKER) 19.1 seconds 11.9-14.2 H (test code = 759) INR (BEAKER) (test 1.63 See_Comment [Automat ed message] code = 370) The system [employer] generated this result transmitted ref erence range: <=5.90. The reference range was not used to int erpret this result as normal/abnormal . RECOMMENDED COUMADIN/WARFARIN INR THERAPY RANGESSTANDARD DOSE: 2.0 - 3.0 Includes: PROPHYLAXIS forvenous thrombosis, systemic embolization; TREATMENT for venous thrombosis and/or pulmonary embolus.HIGH RISK: Target INR is 2.5-3.5 for patients with mechanical heart valves.CALCIUM, [id number] 19:26:00 Test Item Value Reference Range Interpretation Comments CALCIUM IONIZED (BEAKER) (test 1.15 mmol/L 1.12-1.27 code = 698) PH, BLOOD (BEAKER) (test code = 7.50 1810) POCT-GLUCOSE [id number] 18:48:00 Test Item Value Reference Range Interpretation Comments POC-GLUCOSE METER 94 mg/dL 70-110 : TESTED A T [facility] 6720 (BEAKER) (test code = [employer] [facility], 1538) [address]: Stock Driver/Techni won ID = [id number] for Gianfranco s, Paige POCT-GLUCOSE [id number] 12:38:00 Test Item Value Reference Range Interpretation Comments POC-GLUCOSE METER 111 mg/dL 70-110 H : TESTED A T [facility] 6720 (BEAKER) (test code = [employer] [facility], 1538) 13793: Stock Driver/Techni won ID = [id number] for Da vis, Paige PROTHROMBIN TIME/[id number] 12:37:00 Test Item Value Reference Range Interpretation Comments PROTIME (BEAKER) 19.6 seconds 11.9-14.2 H (test code = 759) INR (BEAKER) (test 1.68 See_Comment [Automat ed message] code = 370) The system [employer] generated this result transmitted ref erence range: <=5.90. The reference range was not used to int erpret this result as normal/abnormal . RECOMMENDED COUMADIN/WARFARIN INR THERAPY RANGESSTANDARD DOSE: 2.0 - 3.0 Includes: PROPHYLAXIS forvenous thrombosis, systemic embolization; TREATMENT for venous thrombosis and/or pulmonary embolus.HIGH RISK: Target INR is 2.5-3.5 for patients with mechanical heart valves.POCT-GLUCOSE [id number] 06:19:00 Test Item Value Reference Range Interpretation Comments POC-GLUCOSE METER 100 mg/dL 70-110 : TESTED A T [facility] 6720 (BEAKER) (test code = [employer] [facility], 1538) [address]86: Stock Driver/Techni won ID = [id number] for VINOD CHAUDHARY BLOOD GAS, [id number] 05:07:00 Test Item Value Reference Range Interpretation Comments PH ARTERIAL (BEAKER) (test code = 7.46 7.35-7.45 H 383) PCO2 ARTERIAL (BEAKER) (test code 37 mm Hg 35-45 = 384) PO2 ARTERIAL (BEAKER) (test code = 124 mm Hg 80-90 H 385) O2 SATURATION ARTERIAL (BEAKER) 98.6 % 96.0-97.0 H (test code = 386) HCO3 ARTERIAL (BEAKER) (test code 25 mmol/L 21-29 = 388) BASE EXCESS ARTERIAL (BEAKER) 1.4 mmol/L -2.0-3.0 (test code = 387) PATIENT TEMPERATURE (BEAKER) (test 37.1 code = 1818) FIO2 (BEAKER) (test code = 1819) 60.0 RAD, CHEST, 1 VIEW, NON [id number] 04:36:00Reason for exam:- >intubatedShould this be performed at the bedside?->Yes [facility] : 1975 Sex: MFINAL REPORT Chest one view. Clinical history: intubated Comparison: Chest radiograph 01/29/2021. Technique: A single frontal view of the chest was obtained. Findings:Support lines and tubes are in satisfactory positions. There are median sternotomy wires. There is a cardiac valve prosthesis.The cardiomediastinal contours are stable. There are diffuse bilateral airspace opacities, not significantly changed. There are small bilateral pleural effusions. There is no pneumothorax. Signed: Buck Warren Verified Date/Time: 01/30/2021 04:36:28 BASIC METABOLIC [id number] 02:59:00 Test Item Value Reference Range Interpretation Comments SODIUM (BEAKER) 136 meq/L 136-145 (test code = 381) POTASSIUM (BEAKER) 4.4 meq/L 3.5-5.1 (test code = 379) CHLORIDE (BEAKER) 103 meq/L 98-107 (test code = 382) CO2 (BEAKER) (test 23 meq/L 22-29 code = 355) BLOOD UREA NITROGEN 62 mg/dL 7-21 H (BEAKER) (test code = 354) CREATININE (BEAKER) 4.32 mg/dL 0.57-1.25 H (test code = 358) GLUCOSE RANDOM 113 mg/dL 70-105 H (BEAKER) (test code = 652) CALCIUM (BEAKER) 8.4 mg/dL 8.4-10.2 (test code = 697) EGFR (BEAKER) (test 18 mL/min/1.73 ESTIMA ARI GFR IS code = 1092) sq m NOT ACCURATE CREATININE CLEARANCE IN PREDICTING GLOMERULAR FILTRATION RATE . ESTIMATED GFR I S NOT APPLICABLE FOR DIALYSIS PATIEN TS. Stock Driver ID - [id number] 02:45:00 Test Item Value Reference Range Interpretation Comments MAGNESIUM (BEAKER) (test code = 2.1 mg/dL 1.6-2.6 627) Stock Driver ID - [id number] 02:45:00 Test Item Value Reference Range Interpretation Comments PHOSPHORUS (BEAKER) (test code = 4.6 mg/dL 2.3-4.7 604) Stock Driver ID - [id number] 02:42:00 Test Item Value Reference Range Interpretation Comments PARTIAL THROMBOPLASTIN TIME 44.4 seconds 22.5-36.0 H (BEAKER) (test code = 760) [id number] 02:42:00 Test Item Value Reference Range Interpretation Comments PROTIME (BEAKER) (test 20.9 seconds 11.9-14.2 H code = 759) INR (BEAKER) (test 1.83 See_Comment [Automat ed code = 370) message] The [employer] stem which generated this result transmitted reference range : <=5.90. The reference range was not used to interpret this result as normal/abnormal . PARTIAL THROMBOPLASTIN 44.4 seconds 22.5-36.0 H TIME (BEAKER) (test code = 760) RECOMMENDED COUMADIN/WARFARIN INR THERAPY RANGESSTANDARD DOSE: 2.0 - 3.0 Includes: PROPHYLAXIS forvenous thrombosis, systemic embolization; TREATMENT for venous thrombosis and/or pulmonary embolus.HIGH RISK: Target INR is 2.5-3.5 for patients with mechanical heart valves.PROTHROMBIN TIME/[id number] 02:41:00 Test Item Value Reference Range Interpretation Comments PROTIME (BEAKER) 20.9 seconds 11.9-14.2 H (test code = 759) INR (BEAKER) (test 1.83 See_Comment [Automat ed message] code = 370) The system [employer] generated this result transmitted ref erence range: <=5.90. The reference range was not used to int erpret this result as normal/abnormal . RECOMMENDED COUMADIN/WARFARIN INR THERAPY RANGESSTANDARD DOSE: 2.0 - 3.0 Includes: PROPHYLAXIS forvenous thrombosis, systemic embolization; TREATMENT for venous thrombosis and/or pulmonary embolus.HIGH RISK: Target INR is 2.5-3.5 for patients with mechanical heart valves.LACTIC ACID, [id number] 02:40:00 Test Item Value Reference Range Interpretation Comments LACTATE BLOOD ARTERIAL (2) 0.6 mmol/L 0.5-2.2 (BEAKER) (test code = 2874) Stock Driver ID - DBCALCIUM, [id number] 02:34:00 Test Item Value Reference Range Interpretation Comments CALCIUM IONIZED (BEAKER) (test 1.15 mmol/L 1.12-1.27 code = 698) PH, BLOOD (BEAKER) (test code = 7.47 1810) BLOOD GAS, [id number] 02:34:00 Test Item Value Reference Range Interpretation Comments PH ARTERIAL (BEAKER) (test code = 7.47 7.35-7.45 H 383) PCO2 ARTERIAL (BEAKER) (test code 35 mm Hg 35-45 = 384) PO2 ARTERIAL (BEAKER) (test code = 79 mm Hg 80-90 L 385) O2 SATURATION ARTERIAL (BEAKER) 96.4 % 96.0-97.0 (test code = 386) HCO3 ARTERIAL (BEAKER) (test code 25 mmol/L 21-29 = 388) BASE EXCESS ARTERIAL (BEAKER) 1.5 mmol/L -2.0-3.0 (test code = 387) PATIENT TEMPERATURE (BEAKER) (test 37.1 code = 1818) FIO2 (BEAKER) (test code = 1819) 50.0 CBC W/PLT COUNT & AUTO [id number] 02:33:00 Test Item Value Reference Range Interpretation Comments WHITE BLOOD CELL COUNT (BEAKER) 11.9 K/ L 3.5-10.5 H (test code = 775) RED BLOOD CELL COUNT (BEAKER) 2.63 M/ L 4.63-6.08 L (test code = 761) HEMOGLOBIN (BEAKER) (test code = 7.7 GM/DL 13.7-17.5 L 410) HEMATOCRIT (BEAKER) (test code = 23.8 % 40.1-51.0 L 411) MEAN CORPUSCULAR VOLUME (BEAKER) 90.5 fL 79.0-92.2 (test code = 753) MEAN CORPUSCULAR HEMOGLOBIN 29.3 pg 25.7-32.2 (BEAKER) (test code = 751) MEAN CORPUSCULAR HEMOGLOBIN CONC 32.4 GM/DL 32.3-36.5 (BEAKER) (test code = 752) RED CELL DISTRIBUTION WIDTH 17.2 % 11.6-14.4 H (BEAKER) (test code = 412) PLATELET COUNT (BEAKER) (test 137 K/CU MM 150-450 L code = 756) MEAN PLATELET VOLUME (BEAKER) 10.6 fL 9.4-12.4 (test code = 754) NUCLEATED RED BLOOD CELLS 0 /100 WBC 0-0 (BEAKER) (test code = 413) NEUTROPHILS RELATIVE PERCENT 84 % (BEAKER) (test code = 429) LYMPHOCYTES RELATIVE PERCENT 5 % (BEAKER) (test code = 430) MONOCYTES RELATIVE PERCENT 8 % (BEAKER) (test code = 431) EOSINOPHILS RELATIVE PERCENT 2 % (BEAKER) (test code = 432) BASOPHILS RELATIVE PERCENT 0 % (BEAKER) (test code = 437) NEUTROPHILS ABSOLUTE COUNT 9.94 K/ L 1.78-5.38 H (BEAKER) (test code = 670) LYMPHOCYTES ABSOLUTE COUNT 0.57 K/ L 1.32-3.57 L (BEAKER) (test code = 414) MONOCYTES ABSOLUTE COUNT (BEAKER) 0.93 K/ L 0.30-0.82 H (test code = 415) EOSINOPHILS ABSOLUTE COUNT 0.29 K/ L 0.04-0.54 (BEAKER) (test code = 416) BASOPHILS ABSOLUTE COUNT (BEAKER) 0.03 K/ L 0.01-0.08 (test code = 417) IMMATURE GRANULOCYTES-RELATIVE 1 % 0-1 PERCENT (BEAKER) (test code = 2801) Oxygen saturation, [id number] 02:32:00 Test Item Value Reference Range Interpretation Comments O2 Saturation (Measured) (test code = 66.8 % 18883-0) [facility] [id number] 02:32:00 Test Item Value Reference Range Interpretation Comments O2 Saturation (Measured) (test code = 66.8 % 39321-7) [facility], [id number] 02:32:00 Test Item Value Reference Range Interpretation Comments O2 Saturation (Measured) (test code = 66.8 % 10080-2) [facility]ATION, [id number] 02:32:00 Test Item Value Reference Range Interpretation Comments O2 SATURATION (MEASURED) (BEAKER) 66.8 % (test code = 1455) CT, BRAIN, WITHOUT [id number] 02:20:00Unlisted Reason for Exam - Click Yes and Enter Reason Below->No [facility] 1975 Sex: MFINAL REPORT EXAM: CT, CT Angio, Brain. CT Carotid Angio CLINICAL HI STORY: Subarachnoid hemorrhage, follow-up. Unlisted Reason for Examr/o mycotic aneurysm. COMPARISON:Noncontrast Head CT 01/29/2021, 9:24 AM. TECHNIQUE: Noncontrast head CT was performed. CT angiogram of the head was performed with intravenous contrast. 2-D and 3-D reformatted images were obtained. This exam was performed according to our departmental dose optimization program which includes automated exposure control, adjustment of the mA and/or kV according to patient's size and/or use of iterative reconstructive technique. Stenosis evaluation reported in compliance with NASCET criteria. FINDINGS: Noncontrast CT head: There is small volume subarachnoid hemorrhage in the left parietal lobe. There are mild white matter microvascular ischemic changes. There are chronic lacunar infarcts in the right centrum semiovale and bilateral thalami. There is a small chronic right cerebellar infarct. There is no extra-axial fluid collection, mass effect, herniation or hydrocephalus. The basal cisterns are p atent. There is no large demarcated acute territorial infarct. The visualized orbits are normal. The visualized paranasal sinuses and tympanomastoid cavities are clear. The skull base and calvarium are intact. There is an indwelling nasogastric tube. CTA head: There is mild intracranial calcific atherosclerosis. There is good flow related enhancement of the bilateral anterior, middle and posteriorcerebral arteries and within the basilar artery. The intracranial and skull base internal carotid arteries as well as the vertebral arteries demonstrate normal flow-related enhancement.The dural venous sinuses are patent.There is no vessel occlusion or flow-limiting stenosis.There is no aneurysm. IMPRESSION: Noncontrast CT head:Small volume left parietal subarachnoid hemorrhage, not significantly changed.Mild white matter microvascular ischemic changes.Chronic infarcts as described. CTA head:No intr acranial aneurysm. Signed: Buck Warren [facility] Verified Date/Time: 01/30/2021 02:20:02 [facility] [place], CTANGIO [id number] 02:20:00Unlisted Reason for Exam - Click Yes and Enter Reason Below->YesUnlisted Reason for Exam->r/o m ycotic anuerysmRAN[facility] : 1975 Sex: MFINAL REPORT EXAM: CT, CT Angio, Brain. CT Carotid Angio CLINICAL HI STORY: Subarachnoid hemorrhage, follow-up. Unlisted Reason for Examr/o mycotic aneurysm. COMPARISON:Noncontrast Head CT 01/29/2021, 9:24 AM. TECHNIQUE: Noncontrast head CT was performed. CT angiogram of the head was performed with intravenous contrast. 2-D and 3-D reformatted images were obtained. This exam was performed according to our departmental dose optimization program which includes automated exposure control, adjustment of the mA and/or kV according to patient's size and/or use of iterative reconstructive technique. Stenosis evaluation reported in compliance with NASCET criteria. FINDINGS: Noncontrast CT head: There is small volume subarachnoid hemorrhage in the left parietal lobe. There are mild white matter microvascular ischemic changes. There are chronic lacunar infarcts in the right centrum semiovale and bilateral thalami. There is a small chronic right cerebellar infarct. There is no extra-axial fluid collection, mass effect, herniation or hydrocephalus. The basal cisterns are p atent. There is no large demarcated acute territorial infarct. The visualized orbits are normal. The visualized paranasal sinuses and tympanomastoid cavities are clear. The skull base and calvarium are intact. There is an indwelling nasogastric tube. CTA head: There is mild intracranial calcific atherosclerosis. There is good flow related enhancement of the bilateral anterior, middle and posteriorcerebral arteries and within the basilar artery. The intracranial and skull base internal carotid arteries as well as the vertebral arteries demonstrate normal flow-related enhancement.The dural venous sinuses are patent.There is no vessel occlusion or flow-limiting stenosis.There is no aneurysm. IMPRESSION: Noncontrast CT head:Small volume left parietal subarachnoid hemorrhage, not significantly changed.Mild white matter microvascular ischemic changes.Chronic infarcts as described. CTA head:No intr acranial aneurysm. Signed: Buck Warren [facility] Verified Date/Time: 01/30/2021 02:20:02 [facility] [id number] 02:20:00Interface, External Ris In - 01/30/2021 2:23 AM CDTFINAL REPORT EXAM: CT, CTAngio, Brain. CT Carotid Angio CLINICAL HISTORY: Subarachnoid hemorrhage, follow-up. Unlisted Reason for Examr/o mycotic aneurysm. COMPARISON: Noncontrast Head CT 01/29/2021, 9:24 AM. TECHNIQUE: Noncontrast head CT was performed. CT angiogram of the head was performed with intravenous contrast. 2-D and 3-D reformatted images were obtained. This exam was performed according to our departmental dose optimization program which includes automated exposure control, adjustment of the mA and/or kV according to patient's size and/or use of iterative reconstructive technique. Stenosis evaluation reported in compliance with NASCET criteria. FINDINGS: Noncontrast CT head: There is small volume subarachnoid hemorrhage in the left parietal lobe. There are mild white matter microvascular ischemic changes. There are chronic lacunar infarcts in the right centrum semiovale and bilateral thalami. There is a small chronic right cerebellar infarct. There is no extra-axial fluid collection, mass effect, herniation or hydrocephalus. The basal cisterns are patent. There is no large demarcated acute territorial infarct. The visualized orbits are normal. The visualized paranasal sinuses and tympanomastoid cavities are clear. The skull base and calvarium are intact. There is an indwelling nasogastric tube. CTA head: There is mild intracranial calcific atherosclerosis. There is good flow related enhancement of the bilateral anterior, middle and posterior cerebral arteries and within the basilar artery. The intracranial and skull base internal carotid arteries as well as the vertebral arteries demonstrate normal flow-related enhancement.The dural venous sinuses are patent.There is no vessel occlusion or flow-limiting stenosis.There is no aneurysm. IMPRESSION: Noncontrast CT head:Small volume left parietal subarachnoid hemorrhage, not significantly changed.Mild white matter microvascular ischemic changes.Chronic infarcts as described. CTA head:No intracranial aneurysm. Signed: Buck Warren [facility] Verified Date/Time: 01/30/2021 02:20:02 [facility] [id number] 02:20:00Interface, External Ris In - 01/30/2021 2:23 AM CDTFINAL REPORT EXAM: CT, CTAngio, Brain. CT Carotid Angio CLINICAL HISTORY: Subarachnoid hemorrhage, follow-up. Unlisted Reason for Examr/o mycotic aneurysm. COMPARISON: Noncontrast Head CT 01/29/2021, 9:24 AM. TECHNIQUE: Noncontrast head CT was performed. CT angiogram of the head was performed with intravenous contrast. 2-D and 3-D reformatted images were obtained. This exam was performed according to our departmental dose op timization program which includes automated exposure control, adjustment of the mA and/or kV according to patient's size and/or use of iterative reconstructive technique. Stenosis evaluation reported in compliance with NASCET criteria. FINDINGS: Noncontrast CT head: There is small volume subarachnoidhemorrhage in the left parietal lobe. There are mild white matter microvascular ischemic changes. There are chronic lacunar infarcts in the right centrum semiovale and bilateral thalami. There is a small chronic right cerebellar infarct. There is no extra-axial fluid collection, mass effect, herniation or hydrocephalus. The basal cisterns are patent. There is no large demarcated acute territorial inf arct. The visualized orbits are normal. The visualized paranasal sinuses and tympanomastoid cavities are clear. The skull base and calvarium are intact. There is an indwelling nasogastric tube. CTA head: There is mild intracranial calcific atherosclerosis. There is good flow related enhancement of the bilateral anterior, middle and posterior cerebral arteries and within the basilar artery. The intracranial and skull base internal carotid arteries as well as the vertebral arteries demonstrate normal flow-related enhancement.The dural venous sinuses are patent.There is no vessel occlusion or flow-limiting stenosis.There is no aneurysm. IMPRESSION: Noncontrast CT head:Small volume left parietal subarachnoid hemorrhage, not significantly changed.Mild white matter microvascular ischemic changes.Chronic infarcts as described. CTA head:No intracranial aneurysm. Signed: [facility] Verified Date/Time: 01/30/2021 02:20:02 [facility]CT[facility] [id number] 02:20:00 Interface, External Ris In - 01/30/2021 2:23 AM CDTFINAL REPORT EXAM: CT, CTAngio, Brain. CT Carotid Angio CLINICAL HISTORY: Subarachnoid hemorrhage, follow-up. Unlisted Reason for Examr/o mycotic aneurysm. COMPARISON: Noncontrast Head CT 01/29/2021, 9:24 AM. TECHNIQUE: Noncont rast head CT was performed. CT angiogram of the head was performed with intravenous contrast. 2-D and 3-D reformatted images were obtained. This exam was performed according to our departmental dose optimization program which includes automated exposure control, adjustment of the mA and/or kV according to patient's size and/or use of iterative reconstructive technique. Stenosis evaluation reported in compliance with NASCET criteria. FINDINGS: Noncontrast CT head: There is small volume subarachnoidhemorrhage in the left parietal lobe. There are mild white matter microvascular ischemic changes. There are chronic lacunar infarcts in the right centrum semiovale and bilateral thalami. There is a small chronic right cerebellar infarct. There is no extra-axial fluid collection, mass effect, herniation or hydrocephalus. The basal cisterns are patent. There is no large demarcated acute territorial infarct. The visualized orbits are normal. The visualized paranasal sinuses and tympanomastoid cavities are clear. The skull base and calvarium are intact. There is an indwelling nasogastric tube. CTA head: There is mild intracranial calcific atherosclerosis. There is good flow related enhancement of the bilateral anterior, middle and posterior cerebral arteries and within the basilar artery. The intracranial and skull base internal carotid arteries as well as the vertebral arteries demonstrate normal flow-related enhancement.The dural venous sinuses are patent.There is no vessel occlusion or flow-limiting stenosis.There is no aneurysm. IMPRESSION: Noncontrast CT head:Small volume left parietal sub arachnoid hemorrhage, not significantly changed.Mild white matter microvascular ischemic changes.Chronic infarcts as described. CTA head:No intracranial aneurysm. Signed: Buck Warren [facility] Verified Date/Time: 01/30/2021 02:20:02 [facility]CT [facility] IV [id number] 02:20:00Interface, External Ris In - 01/30/2021 2:23 AM CDTFINAL REPORT EXAM: CT, CTAngio, Brain. CT Carotid Angio CLINICAL HISTORY: Subarachnoid hemorrhage, follow-up. Unlisted Reason for Examr/o mycotic aneurysm. COMPARISON: Noncontrast Head CT 01/29/2021, 9:24 AM. TECHNIQUE: Noncont rast head CT was performed. CT angiogram of the head was performed with intravenous contrast. 2-D and 3-D reformatted images were obtained. This exam was performed according to our departmental dose optimization program which includes automated exposure control, adjustment of the mA and/or kV according to patient's size and/or use of iterative reconstructive technique. Stenosis evaluation reported in compliance with NASCET criteria. FINDINGS: Noncontrast CT head: There is small volume subarachnoidhemorrhage in the left parietal lobe. There are mild white matter microvascular ischemic changes. There are chronic lacunar infarcts in the right centrum semiovale and bilateral thalami. There is a small chronic right cerebellar infarct. There is no extra-axial fluid collection, mass effect, herniation or hydrocephalus. The basal cisterns are patent. There is no large demarcated acute territorial infarct. The visualized orbits are normal. The visualized paranasal sinuses and tympanomastoid cavities are clear. The skull base and calvarium are intact. There is an indwelling nasogastric tube. CTA head: There is mild intracranial calcific atherosclerosis. There is good flow related enhancement of the bilateral anterior, middle and posterior cerebral arteries and within the basilar artery. The intracranial and skull base internal carotid arteries as well as the vertebral arteries demonstrate normal flow-related enhancement.The dural venous sinuses are patent.There is no vessel occlusion or flow-limiting stenosis.There is no aneurysm. IMPRESSION: Noncontrast CT head:Small volume left parietal sub arachnoid hemorrhage, not significantly changed.Mild white matter microvascular ischemic changes.Chronic infarcts as described. CTA head:No intracranial aneurysm. Signed: Buck Warren [facility] Verified Date/Time: 01/30/2021 02:20:02 [facility]CT[facility] [id number] 02:20:00Interface, External Ris In - 01/30/2021 2:23 AM CDTFINAL REPORT EXAM: CT, CTAngio, Brain. CT Carotid Angio CLINICAL HISTORY: Subarachnoid hemorrhage, follow-up. Unlisted Reason for Examr/o mycotic aneurysm. COMPARISON: Noncontrast Head CT 01/29/2021, 9:24 AM. TECHNIQUE: Noncontrast head CT was performed. CT angiogram of the head was performed with intravenous contrast. 2- D and 3-D reformatted images were obtained. This exam was performed according to our departmental dose optimization program which includes automated exposure control, adjustment of the mA and/or kV according to patient's size and/or use of iterative reconstructive technique. Stenosis evaluation reported in compliance with NASCET criteria. FINDINGS: Noncontrast CT head: There is small volume subarachnoidhemorrhage in the left parietal lobe. There are mild white matter microvascular ischemic changes. There are chronic lacunar infarcts in the right centrum semiovale and bilateral thalami. There is a small chronic right cerebellar infarct. There is no extra-axial fluid collection, mass effect, herniation or hydrocephalus. The basal cisterns are patent. There is no large demarcated acute territorial infarct. The visualized orbits are normal. The visualized paranasal sinuses and tympanomastoid cavities are clear. The skull base and calvarium are intact. There is an indwelling nasogastric tube. CTA he ad: There is mild intracranial calcific atherosclerosis. There is good flow related enhancement of the bilateral anterior, middle and posterior cerebral arteries and within the basilar artery. The intracranial and skull base internal carotid arteries as well as the vertebral arteries demonstrate normal flow-related enhancement.The dural venous sinuses are patent.There is no vessel occlusion or flow-limiting stenosis.There is no aneurysm. IMPRESSION: Noncontrast CT head:Small volume left parietal subarachnoid hemorrhage, not significantly changed.Mild white matter microvascular ischemic changes.Chronic infarcts as described. CTA head:No intracranial aneurysm. Signed: Buck Warren [facility] Verified Date/Time: 01/30/2021 02:20:02 [facility]CT [facility] IV [id number] 02:20:00Interface, External Ris In - 01/30/2021 2:23 AM CDTFINAL REPORT EXAM: CT, CTAngio, Brain. CT Carotid Angio CLINICAL HISTORY: Subarachnoid hemorrhage, follow-up. Unlisted Reason for Examr/o mycotic aneurysm. COMPARISON: Noncontrast Head CT 01/29/2021, 9:24 AM. TECHNIQUE: Noncontrast head CT was performed. CT angiogram of the head was performed with intravenous contrast. 2-D and 3-D reformatted images were obtained. This exam was performed according to our departmental dose optimization program which includes automated exposure control, adjustment of the mA and/or kV according to patient's size and/or use of iterative reconstructive technique. Stenosis evaluation reported in compliance with NASCET criteria. FINDINGS: Noncontrast CT head: There is small volume subarachnoid hemorrhage in the left parietal lobe. There are mild white matter microvascular ischemic changes. There are chronic lacunar infarcts in the right centrum semiovale and bilateral thalami. There is a small chronic right cerebellar infarct. There is no extra-axial fluid collection, mass effect, herniation or hydrocephalus. The basal cisterns are patent. There is no large demarcated acute territorial infarct. The visualized orbits are normal. The visualized paranasal sinuses and tympanomastoid cavities are clear. The skull base and calvarium are intact. There is an indwelling nasogastric tube. CTA head: There is mild intracranial calcific atherosclerosis. There is good flow related enhancement of the bilateral anterior, middle and posterior cerebral arteries and within the basilar artery. The intracranial and skull base internal carotid arteries as well as the vertebral arteries demonstrate normal flow-related enhancement.The dural venous sinuses are patent.There is no vessel occlusion or flow-limiting stenosis.There is no aneurysm. IMPRESSION: Noncontrast CT head:Small volume left parietal subarachnoid hemorrhage, not significantly changed.Mild white matter microvascular ischemic changes.Chronic infarcts as described. CTA head:No intracranial aneurysm. Signed: [facility] Verified Date/Time: 01/30/2021 02:20:02 [facility]PO[facility] [id number] 23:30:00 Test Item Value Reference Range Interpretation Comments POC-GLUCOSE METER 107 mg/dL 70-110 : TESTED A T [facility] 6720 (BEAKER) (test code = NORM [place] [facility], 1538) [address]: Stock Driver/Techni won ID = [id number] for VINOD CHAUDHARY CBC W/PLT COUNT & AUTO [id number] 19:35:00 Test Item Value Reference Range Interpretation Comments WHITE BLOOD CELL COUNT (BEAKER) 11.0 K/ L 3.5-10.5 H (test code = 775) RED BLOOD CELL COUNT (BEAKER) 2.33 M/ L 4.63-6.08 L (test code = 761) HEMOGLOBIN (BEAKER) (test code = 6.9 GM/DL 13.7-17.5 L 410) HEMATOCRIT (BEAKER) (test code = 21.3 % 40.1-51.0 L 411) MEAN CORPUSCULAR VOLUME (BEAKER) 91.4 fL 79.0-92.2 (test code = 753) MEAN CORPUSCULAR HEMOGLOBIN 29.6 pg 25.7-32.2 (BEAKER) (test code = 751) MEAN CORPUSCULAR HEMOGLOBIN CONC 32.4 GM/DL 32.3-36.5 (BEAKER) (test code = 752) RED CELL DISTRIBUTION WIDTH 17.8 % 11.6-14.4 H (BEAKER) (test code = 412) PLATELET COUNT (BEAKER) (test 133 K/CU MM 150-450 L code = 756) MEAN PLATELET VOLUME (BEAKER) 10.6 fL 9.4-12.4 (test code = 754) NUCLEATED RED BLOOD CELLS 0 /100 WBC 0-0 (BEAKER) (test code = 413) NEUTROPHILS RELATIVE PERCENT 84 % (BEAKER) (test code = 429) LYMPHOCYTES RELATIVE PERCENT 5 % (BEAKER) (test code = 430) MONOCYTES RELATIVE PERCENT 8 % (BEAKER) (test code = 431) EOSINOPHILS RELATIVE PERCENT 2 % (BEAKER) (test code = 432) BASOPHILS RELATIVE PERCENT 0 % (BEAKER) (test code = 437) NEUTROPHILS ABSOLUTE COUNT 9.21 K/ L 1.78-5.38 H (BEAKER) (test code = 670) LYMPHOCYTES ABSOLUTE COUNT 0.50 K/ L 1.32-3.57 L (BEAKER) (test code = 414) MONOCYTES ABSOLUTE COUNT (BEAKER) 0.89 K/ L 0.30-0.82 H (test code = 415) EOSINOPHILS ABSOLUTE COUNT 0.26 K/ L 0.04-0.54 (BEAKER) (test code = 416) BASOPHILS ABSOLUTE COUNT (BEAKER) 0.03 K/ L 0.01-0.08 (test code = 417) IMMATURE GRANULOCYTES-RELATIVE 1 % 0-1 PERCENT (BEAKER) (test code = 2801) POCT-GLUCOSE [id number] 18:16:00 Test Item Value Reference Range Interpretation Comments POC-GLUCOSE METER 99 mg/dL 70-110 : TESTED A T [facility] 6720 (BEAKER) (test code = NORM [place], 1538) [address]: Stock Driver/Techni won ID = [id number] for RONAL BROCK PROTHROMBIN [id number] 18:16:00 Test Item Value Reference Range Interpretation Comments PROTIME (BEAKER) 21.4 seconds 11.9-14.2 H (test code = 759) INR (BEAKER) (test 1.89 See_Comment [Automat ed message] code = 370) The system Um[employer] generated this result transmitted ref erence range: <=5.90. The reference range was not used to int erpret this result as normal/abnormal . RECOMMENDED COUMADIN/WARFARIN INR THERAPY RANGESSTANDARD DOSE: 2.0 - 3.0 Includes: PROPHYLAXIS forvenous thrombosis, systemic embolization; TREATMENT for venous thrombosis and/or pulmonary embolus.HIGH RISK: Target INR is 2.5-3.5 for patients with mechanical heart valves.PROTHROMBIN [id number] 15:23:00 Test Item Value Reference Range Interpretation Comments PROTIME (BEAKER) 21.5 seconds 11.9-14.2 H (test code = 759) INR (BEAKER) (test 1.90 See_Comment [Automat ed message] code = 370) The system [employer] generated this result transmitted ref erence range: <=5.90. The reference range was not used to int erpret this result as normal/abnormal . RECOMMENDED COUMADIN/WARFARIN INR THERAPY RANGESSTANDARD DOSE: 2.0 - 3.0 Includes: PROPHYLAXIS forvenous thrombosis, systemic embolization; TREATMENT for venous thrombosis and/or pulmonary embolus.HIGH RISK: Target INR is 2.5-3.5 for patients with mechanical heart valves.[id number] 15:23:00 Test Item Value Reference Range Interpretation Comments PARTIAL THROMBOPLASTIN TIME 52.7 seconds 22.5-36.0 H (BEAKER) (test code = 760) [facility], [id number] 14:38:00 Test Item Value Reference Range Interpretation Comments ABO Grouping (test O Anti-A 0, Anti-B 0, A1 4+, code = 2588) B 4+, Anti D 4+ . Typing as O positive due to multiple transfusions of O positive RBC due to O ne g RBC shortage. Rh Factor (test code = NEG 2589) [facility] [id number] 14:38:00 Test Item Value Reference Range Interpretation Comments ABO Grouping (test O Anti-A 0, Anti-B 0, A1 4+, code = 2588) B 4+, Anti D 4+ . Typing as O positive due to multiple transfusions of O positive RBC due to O ne g RBC shortage. Rh Factor (test code = NEG 2589) [facility], [id number] 14:38:00 Test Item Value Reference Range Interpretation Comments ABO Grouping (test O Anti-A 0, Anti-B 0, A1 4+, code = 2588) B 4+, Anti D 4+ . Typing as O positive due to multiple transfusions of O positive RBC due to O ne g RBC shortage. Rh Factor (test code = NEG 2589) [facility], [id number] 14:32:00 Test Item Value Reference Range Interpretation Comments Ab Scrn (test code = 890-4) NEGATIVE [facility], [id number] 14:32:00 Test Item Value Reference Range Interpretation Comments Ab Scrn (test code = 890-4) NEGATIVE [facility], [id number] 14:32:00 Test Item Value Reference Range Interpretation Comments Ab Scrn (test code = 890-4) NEGATIVE [facility] [id number] 14:30:00 Test Item Value Reference Range Interpretation Comments POC-GLUCOSE METER 105 mg/dL 70-110 : TESTED A T [facility] 6720 (BEAKER) (test code = RAYMONJACQUELINE [place], 1538) [address]: Stock Driver/Techni won ID = [id number] for RONAL PEREZ CT, BRAIN, WITHOUT [id number] 10:14:00Unlisted Reason for Exam - Click Yes and Enter Reason Below->No [facility] : 1975 Sex: MAddendum BeginsREPORT STATUS:A The findings were discussed with SOURAV Park on 01/29/2021 10:13 AM. Signed: Celso Fernandesting Verified Date/Time: 01/29/2021 10:14:[address], BRAIN, WITHOUT CONTRAST INDICATION: Ataxia, stroke suspected TECHNIQUE: Noncontrast axial imaging was obtained from the vertex to the skull base. Axial images were reconstructed using a bone algorithm. DOSE REDUCTION: Dose modulation, iterative reconstruction, and/or weight-based adjustment of the mA/kV was utilized to reduce the radiation dose to as low as reasonably achievable. COMPARISON: None. FINDINGS: Intracranial: Small volume subarachnoid hemorrhage in the left parietal sulci. No significant mass effect. No evidence of acute territorial infarct. No hydrocephalus. Age-indeterminate lacunar infarct within the left thalamus. Generalized cerebral atrophy with ex vacuo dilatation of the ventricular system proportionate to sulci. Scattered foci of hypoattenuation within the periventricular and subcortical white matter are a nonspecific finding commonly attributed to chronic small vessel ischemic disease. Prominent pineal region calcification. Osseous structures: No fracture. No suspicious lesion. Paranasal sinuses and mastoid air cells: No evidence of sinusitis. Mastoids are clear. Orbital contents: Globes are intact. IMPRESSION: Small volume left parietal subarachnoid hemorrhage. Addendum will be made to this report upon successful communication with the ordering physician. Signed: Celso Fernandes Verified Date/Time: 01/29/2021 10:07:24 /[id number] 09:36:00 Test Item Value Reference Range Interpretation Comments PROTIME (BEAKER) (test 20.8 seconds 11.9-14.2 H code = 759) INR (BEAKER) (test 1.82 See_Comment [Automat ed code = 370) message] The sy stem which generated this result transmitted reference range : <=5.90. The reference range was not used to interpret this result as normal/abnormal . PARTIAL THROMBOPLASTIN 43.1 seconds 22.5-36.0 H TIME (BEAKER) (test code = 760) RECOMMENDED COUMADIN/WARFARIN INR THERAPY RANGESSTANDARD DOSE: 2.0 - 3.0 Includes: PROPHYLAXIS forvenous thrombosis, systemic embolization; TREATMENT for venous thrombosis and/or pulmonary embolus.HIGH RISK: Target INR is 2.5-3.5 for patients with mechanical heart valves.Red blood cell [id number] 09:29:00 Test Item Value Reference Range Interpretation Comments RBC (test code = 2.37 See_Comment L [Automated 789-8) message] The system which generated this result transmit ari reference range : 4.63 - 6.08 M/ L. The reference range was not u sed to interpret th is result as normal/abnormal . CARLEY (test code = CARLEY) Stock Driver ID - [id number] ID - [id number] Lab Interpretation Abnormal (test code = 91358-6) [facility] [id number] 09:29:00 Test Item Value Reference Range Interpretation Comments RBC (test code = 2.37 See_Comment L [Automated 789-8) message] The system which generated this result transmit ari reference range : 4.63 - 6.08 M/ L. The reference range was not u sed to interpret th is result as normal/abnormal . CARLEY (test code = CARLEY) Stock Driver ID - [id number] ID - [id number] Lab Interpretation Abnormal (test code = 54920-4) [facility] [id number] 09:29:00 Test Item Value Reference Range Interpretation Comments RBC (test code = 2.37 See_Comment L [Automated 789-8) message] The system which generated this result transmit ari reference range : 4.63 - 6.08 M/ L. The reference range was not u sed to interpret th is result as normal/abnormal . CARLEY (test code = CARLEY) Stock Driver ID - [id number] ID - [id number] Lab Interpretation Abnormal (test code = 39672-9) [facility] Center[facility] CE[facility] [id number] 09:29:00 Test Item Value Reference Range Interpretation Comments RED BLOOD CELL COUNT (BEAKER) (test 2.37 M/ L 4.63-6.08 L code = 761) Stock Driver ID - [id number] ID - [id number] [id number] 08:25:00 Test Item Value Reference Range Interpretation Comments Digoxin Lvl (test code = 1.06 ng/mL 0.8-2 39850-1) CARLEY (test code = CARLEY) Stock Driver ID - SIMA W Lab Interpretation (test Normal code = 19455-3) [facility] CenterDig[facility] [id number] 08:25:00 Test Item Value Reference Range Interpretation Comments Digoxin Lvl (test code = 1.06 ng/mL 0.8-2 58624-4) CARLEY (test code = CARLEY) Stock Driver ID - SIMA W Lab Interpretation (test Normal code = 72504-9) [facility] Center[facility] [id number] 08:25:00 Test Item Value Reference Range Interpretation Comments Digoxin Lvl (test code = 1.06 ng/mL 0.8-2 27139-5) CARLEY (test code = CARLEY) Stock Driver ID - SIMA W Lab Interpretation (test Normal code = 50703-2) [facility] CenterDIGOXIN [id number] 08:25:00 Test Item Value Reference Range Interpretation Comments DIGOXIN LEVEL (BEAKER) (test code 1.06 ng/mL 0.80-2.00 = 669) Stock Driver ID - SIMA MIDDLETONOCT-GLUCOSE [id number] 07:31:00 Test Item Value Reference Range Interpretation Comments POC-GLUCOSE METER 97 mg/dL 70-110 : TESTED A T [facility] 6720 ([facility] (test code = NORM [place], 1538) [address]: Stock Driver/Techni won ID = [id number] for RONAL BROCK [id number] 07:26:00 Test Item Value Reference Range Interpretation Comments PARTIAL THROMBOPLASTIN TIME 35.6 seconds 22.5-36.0 ([facility] (test code = 760) CBC W/PLT COUNT & AUTO [id number] 07:23:00 Test Item Value Reference Range Interpretation Comments WHITE BLOOD CELL COUNT (AKER) 10.0 K/ L 3.5-10.5 (test code = 775) RED BLOOD CELL COUNT (AKER) 2.35 M/ L 4.63-6.08 L (test code = 761) HEMOGLOBIN (BEAKER) (test code = 7.0 GM/DL 13.7-17.5 L 410) HEMATOCRIT (BEAKER) (test code = 21.8 % 40.1-51.0 L 411) MEAN CORPUSCULAR VOLUME (BEAKER) 92.8 fL 79.0-92.2 H (test code = 753) MEAN CORPUSCULAR HEMOGLOBIN 29.8 pg 25.7-32.2 (BEAKER) (test code = 751) MEAN CORPUSCULAR HEMOGLOBIN CONC 32.1 GM/DL 32.3-36.5 L (BEAKER) (test code = 752) RED CELL DISTRIBUTION WIDTH 18.8 % 11.6-14.4 H (BEAKER) (test code = 412) PLATELET COUNT (BEAKER) (test 130 K/CU MM 150-450 L code = 756) MEAN PLATELET VOLUME (BEAKER) 11.1 fL 9.4-12.4 (test code = 754) NUCLEATED RED BLOOD CELLS 0 /100 WBC 0-0 (BEAKER) (test code = 413) NEUTROPHILS RELATIVE PERCENT 80 % (BEAKER) (test code = 429) LYMPHOCYTES RELATIVE PERCENT 6 % (BEAKER) (test code = 430) MONOCYTES RELATIVE PERCENT 9 % (BEAKER) (test code = 431) EOSINOPHILS RELATIVE PERCENT 2 % (BEAKER) (test code = 432) BASOPHILS RELATIVE PERCENT 0 % (BEAKER) (test code = 437) NEUTROPHILS ABSOLUTE COUNT 8.05 K/ L 1.78-5.38 H (BEAKER) (test code = 670) LYMPHOCYTES ABSOLUTE COUNT 0.61 K/ L 1.32-3.57 L (BEAKER) (test code = 414) MONOCYTES ABSOLUTE COUNT (BEAKER) 0.94 K/ L 0.30-0.82 H (test code = 415) EOSINOPHILS ABSOLUTE COUNT 0.24 K/ L 0.04-0.54 (BEAKER) (test code = 416) BASOPHILS ABSOLUTE COUNT (BEAKER) 0.04 K/ L 0.01-0.08 (test code = 417) IMMATURE GRANULOCYTES-RELATIVE 1 % 0-1 PERCENT (BEAKER) (test code = 2801) Hepatic function [id number] 07:21:00 Test Item Value Reference Range Interpretation Comments Protein, Total (test 5.6 See_Comment L [Autom ated code = 2885-2) message] The system which generated this result transmit ari reference range : 6.0 - 8.3 gm/dL . The reference range was not u sed to interpret th is result as normal/abnormal . Albumin (test code = 2.3 g/dL 3.5-5 L 90820-3) Total Bilirubin (test 0.6 mg/dL 0.2-1.2 code = 1974-2) Bilirubin, Direct 0.5 mg/dL 0.1-0.5 (test code = 1967-7) Alkaline Phosphatase 134 U/L 40-150 (test code = 6768-6) AST (test code = 39 U/L 5-34 H 1920-8) ALT (test code = 125 U/L 6-55 H 1742-6) CARLEY (test code = CARLEY) Stock Driver ID - KENNETH Leon Lab Interpretation Abnormal (test code = 38000-8) [facility] CenterHepatic function [id number] 07:21:00 Test Item Value Reference Range Interpretation Comments Protein, Total (test 5.6 See_Comment L [Autom ated code = 2885-2) message] The system which generated this result transmit ari reference range : 6.0 - 8.3 gm/dL . The reference range was not u sed to interpret th is result as normal/abnormal . Albumin (test code = 2.3 g/dL 3.5-5 L 61502-6) Total Bilirubin (test 0.6 mg/dL 0.2-1.2 code = 1974-2) Bilirubin, Direct 0.5 mg/dL 0.1-0.5 (test code = 1967-7) Alkaline Phosphatase 134 U/L 40-150 (test code = 6768-6) AST (test code = 39 U/L 5-34 H 1920-8) ALT (test code = 125 U/L 6-55 H 1742-6) CARLEY (test code = CARLEY) Stock Driver ID - KENNETH W Lab Interpretation Abnormal (test code = 08523-8) [facility] CenterHepatic function [id number] 07:21:00 Test Item Value Reference Range Interpretation Comments Protein, Total (test 5.6 See_Comment L [Autom ated code = 2885-2) message] The system which generated this result transmit ari reference range : 6.0 - 8.3 gm/dL . The reference range was not u sed to interpret th is result as normal/abnormal . Albumin (test code = 2.3 g/dL 3.5-5 L 86466-8) Total Bilirubin (test 0.6 mg/dL 0.2-1.2 code = 1975-2) Bilirubin, Direct 0.5 mg/dL 0.1-0.5 (test code = 1968-7) Alkaline Phosphatase 134 U/L 40-150 (test code = 6768-6) AST (test code = 39 U/L 5-34 H 1920-8) ALT (test code = 125 U/L 6-55 H 1742-6) CARLEY (test code = CARLEY) Stock Driver ID Doretha COOPER W Lab Interpretation Abnormal (test code = 78054-0) [facility] METABOLIC [id number] 07:21:00 Test Item Value Reference Range Interpretation Comments SODIUM (BEAKER) 137 meq/L 136-145 (test code = 381) POTASSIUM (BEAKER) 4.3 meq/L 3.5-5.1 (test code = 379) CHLORIDE (BEAKER) 103 meq/L 98-107 (test code = 382) CO2 (BEAKER) (test 26 meq/L 22-29 code = 355) BLOOD UREA NITROGEN 36 mg/dL 7-21 H (BEAKER) (test code = 354) CREATININE (BEAKER) 2.84 mg/dL 0.57-1.25 H (test code = 358) GLUCOSE RANDOM 102 mg/dL 70-105 (BEAKER) (test code = 652) CALCIUM (BEAKER) 8.3 mg/dL 8.4-10.2 L (test code = 697) EGFR (BEAKER) (test 30 mL/min/1.73 ESTIMA ARI GFR IS code = 1092) sq m NOT ACCURATE CREATININE CLEARANCE IN PREDICTING GLOMERULAR FILTRATION RATE . ESTIMATED GFR I S NOT APPLICABLE FOR DIALYSIS PATIEN TS. Stock Driver ID - KENNETH [id number] 07:21:00 Test Item Value Reference Range Interpretation Comments MAGNESIUM (BEAKER) (test code = 2.0 mg/dL 1.6-2.6 627) Stock Driver ID Doretha COOPER [id number] 07:21:00 Test Item Value Reference Range Interpretation Comments PHOSPHORUS (BEAKER) (test code = 3.7 mg/dL 2.3-4.7 604) Stock Driver ID - KENNETH WHEPATIC FUNCTION [id number] 07:21:00 Test Item Value Reference Range Interpretation Comments TOTAL PROTEIN (BEAKER) (test code = 5.6 gm/dL 6.0-8.3 L 770) ALBUMIN (BEAKER) (test code = 1145) 2.3 g/dL 3.5-5.0 L BILIRUBIN TOTAL (BEAKER) (test code 0.6 mg/dL 0.2-1.2 = 377) BILIRUBIN DIRECT (BEAKER) (test 0.5 mg/dL 0.1-0.5 code = 706) ALKALINE PHOSPHATASE (BEAKER) (test 134 U/L 40-150 code = 346) AST (SGOT) (BEAKER) (test code = 39 U/L 5-34 H 353) ALT (SGPT) (BEAKER) (test code = 125 U/L 6-55 H 347) Stock Driver ID Doretha COOPER WLACTIC ACID, [id number] 07:18:00 Test Item Value Reference Range Interpretation Comments LACTATE BLOOD 0.7 mmol/L 0.5-2.2 Specimen sligh tly ARTERIAL (2) (BEAKER) hemoly zed (test code = 2874) Stock Driver ID Doretha COOPER WBLOOD GAS, [id number] 06:44:00 Test Item Value Reference Range Interpretation Comments PH ARTERIAL (BEAKER) (test code = 7.49 7.35-7.45 H 383) PCO2 ARTERIAL (BEAKER) (test code 39 mm Hg 35-45 = 384) PO2 ARTERIAL (BEAKER) (test code = 117 mm Hg 80-90 H 385) O2 SATURATION ARTERIAL (BEAKER) 98.5 % 96.0-97.0 H (test code = 386) HCO3 ARTERIAL (BEAKER) (test code 29 mmol/L 21-29 = 388) BASE EXCESS ARTERIAL (BEAKER) 5.3 mmol/L -2.0-3.0 H (test code = 387) PATIENT TEMPERATURE (BEAKER) (test 37.4 code = 1818) FIO2 (BEAKER) (test code = 1819) 70.0 CALCIUM, [id number] 06:42:00 Test Item Value Reference Range Interpretation Comments CALCIUM IONIZED (BEAKER) (test 1.13 mmol/L 1.12-1.27 code = 698) PH, BLOOD (BEAKER) (test code = 7.50 1810) OXYGEN SATURATION, [id number] 06:41:00 Test Item Value Reference Range Interpretation Comments O2 SATURATION (MEASURED) (BEAKER) 74.5 % (test code = 1455) RAD, CHEST, 1 VIEW, NON [id number] 04:31:00Reason for exam:- >intubatedShould this be performed at the bedside?->Yes [facility] : 1975 Sex: MFINAL REPORT Chest one view. Clinical history: intubated Comparison: Chest radiograph 01/28/2021, 5:33 PM. Technique: A single frontal view of the chest was obtained. Findings:Support lines and tubes are in satisfactory positions. The patient is status post median sternotomy. There is a cardiac valve prosthesis.The cardiomediastinal contours are stable. There are diffuse bilateral airspace opacities, mildly decreased. There are small bilateral pleural effusions. There is no pneumothorax. Signed: Buck Warren MDReport Verified Date/Time: 01/29/2021 04:31:34 POCT-GLUCOSE [id number] 00:55:00 Test Item Value Reference Range Interpretation Comments POC-GLUCOSE METER 116 mg/dL 70-110 H : TESTED A T [facility] 6720 (BEAKER) (test code = NORM R [facility], 1538) [address]: Stock Driver/Techni won ID = [id number] for VINOD CHAUDHARY [id number] 18:45:00 Test Item Value Reference Range Interpretation Comments Potassium (test code = 3.9 meq/L 3.5-5.1 2823-3) CARLEY (test code = CARLEY) Stock Driver ID - DB Lab Interpretation (test Normal code = 60994-6) [facility] Test Item Value Reference Range Interpretation Comments Sodium (test code = 2951-2) 137 meq/L 136-145 CARLEY (test code = CARLEY) Stock Driver ID - DB Lab Interpretation (test Normal code = 63306-1) [facility] 18:45:00 Test Item Value Reference Range Interpretation Comments Potassium (test code = 3.9 meq/L 3.5-5.1 2823-3) CARLEY (test code = CARLEY) Stock Driver ID - DB Lab Interpretation (test Normal code = 93433-3) [facility] 18:45:00 Test Item Value Reference Range Interpretation Comments Sodium (test code = 2951-2) 137 meq/L 136-145 CARLEY (test code = CARLEY) Stock Driver ID - DB Lab Interpretation (test Normal code = 22711-0) [facility] 18:45:00 Test Item Value Reference Range Interpretation Comments Potassium (test code = 3.9 meq/L 3.5-5.1 2823-3) CARLEY (test code = CARLEY) Stock Driver ID - DB Lab Interpretation (test Normal code = 55518-6) [facility] 18:45:00 Test Item Value Reference Range Interpretation Comments Sodium (test code = 2951-2) 137 meq/L 136-145 CARLEY (test code = CARLEY) Stock Driver ID - DB Lab Interpretation (test Normal code = 30306-1) [facility] 18:45:00 Test Item Value Reference Range Interpretation Comments MAGNESIUM (BEAKER) (test code = 1.9 mg/dL 1.6-2.6 627) Stock Driver ID - [id number] 18:45:00 Test Item Value Reference Range Interpretation Comments PHOSPHORUS (BEAKER) (test code = 2.7 mg/dL 2.3-4.7 604) Stock Driver ID - [id number] 18:45:00 Test Item Value Reference Range Interpretation Comments POTASSIUM (BEAKER) (test code = 3.9 meq/L 3.5-5.1 379) Stock Driver ID - [id number] 18:45:00 Test Item Value Reference Range Interpretation Comments SODIUM (BEAKER) (test code = 381) 137 meq/L 136-145 Stock Driver ID - DBRAD, CHEST, 1 VIEW, NON [id number] 18:36:00Reason for exam:- >Hypoxia, eval chest tubeShould this be performed at the bedside?->Yes [facility] : 1975 Sex: MFINAL REPORT Exam: RAD, CHEST, 1 VIEW, NON DEPTDate: 01/28/2021 6:34 PM Indication: Hypoxia Comparison: Chest radiograph earlier the same day FINDINGS: Lines/Tubes:Left basilar chest tube in unchanged position. Right IJ tunneled dialysis catheter and feeding tube also unchanged. Lungs:The lungs are moderately inflated. Unchanged bilateral diffuse hazy airspace opacities. Pleura:Unchanged bilateral layering pleural effusions. No pneumothorax. Heart/Mediastinum:Cardiomediastinal silhouette is stably enlarged. Bones/Soft Tissues: No acute osseous injury. Sternotomy wires unchanged. Abdomen: No free air below the diaphragm. IMPRESSION:No significant interval change. Signed: Pierre, Kaiming MDReport Verified Date/Time: 01/28/2021 18:36:09 Reading Location: [facility] C013Y [facility] Reading Room POCT-GLUCOSE [id number] 18:29:00 Test Item Value Reference Range Interpretation Comments POC-GLUCOSE METER 91 mg/dL 70-110 : TESTED A T [facility] 6720 (BEAKER) (test code = NORM [place], 1538) [address]: Stock Driver/Techni won ID = [id number] for RONAL BROCK BLOOD GAS, [id number] 18:20:00 Test Item Value Reference Range Interpretation Comments PH ARTERIAL (BEAKER) (test code = 7.53 7.35-7.45 H 383) PCO2 ARTERIAL (BEAKER) (test code 35 mm Hg 35-45 = 384) PO2 ARTERIAL (BEAKER) (test code = 111 mm Hg 80-90 H 385) O2 SATURATION ARTERIAL (BEAKER) 98.5 % 96.0-97.0 H (test code = 386) HCO3 ARTERIAL (BEAKER) (test code 29 mmol/L 21-29 = 388) BASE EXCESS ARTERIAL (BEAKER) 5.9 mmol/L -2.0-3.0 H (test code = 387) PATIENT TEMPERATURE (BEAKER) (test 37.5 code = 1818) FIO2 (BEAKER) (test code = 1819) 100.0 HEMODIALYSIS [id number] 12:55:00Kimmy Mitchell RN 01/28/2021 12:55 PMLab Results Component Value Date WBC 12.6 (H) 01/28/2021 HGB 7.5 (L) 01/28/2021 HCT 23.9 (L) 01/28/2021 MCV 93.4 (H) 01/28/2021 PLT 121 (L) 01/28/2021ab Results Component Value Date GLUCOSE 114 (H) 01/28/2021 CALCIUM 8.9 01/28/2021 NA 135 (L) 01/28/2021 K 4.5 01/28/2021 CO2 27 01/28/2021 CL 103 01/28/2021 BUN 35 (H) 01/28/2021 CREATININE 2.83 (H) 01/28/2021 Lab Results Component Value Date HEPBSAG Nonreactive 01/14/2021 HD X 4 hours comp leted via right IJ tunneled catheter. Net UF -3.5L. Hypertensive during treatment. Scheduled metoprolol and prn labetalol given during treatment with minimal effect. Report given to primary RN. JOSE Talbot [facility] [id number] 12:55:00Kimmy Mitchell RN 01/28/2021 12:55 PMLab Results Component Value Date WBC 12.6 (H) 01/28/2021 HGB 7.5 (L) 01/28/2021 HCT 23.9 (L) 01/28/2021 MCV 93.4 (H) 01/28/2021 PLT 121 (L) 01/28/2021ab Results Component Value Date GLUCOSE 114 (H) 01/28/2021 CALCIUM 8.9 01/28/2021 NA 135 (L) 01/28/2021 K 4.5 01/28/2021 CO2 27 01/28/2021 CL 103 01/28/2021 BUN 35 (H) 01/28/2021 CREATININE 2.83 (H) 01/28/2021 Lab Results Component Value Date HEPBSAG Nonreactive 01/14/2021 HD X 4 hours completed via right IJ tunneled catheter. Net UF -3.5L. Hypertensive during treatment. Scheduled metoprolol and prn labetalol given during treatment with minimal effect. Report given to primary RN. JOSE Talbot [facility] [id number] 12:55:00Kimmy Mitchell RN 01/28/2021 12:55 PMLab Results Component Value Date WBC 12.6 (H) 01/28/2021 HGB 7.5 (L) 01/28/2021 HCT 23.9 (L) 01/28/2021 MCV 93.4 (H) 01/28/2021 PLT 121 (L) 01/28/2021ab Results Component Value Date GLUCOSE 114 (H) 01/28/2021 CALCIUM 8.9 01/28/2021 NA 135 (L) 01/28/2021 K 4.5 01/28/2021 CO2 27 01/28/2021 CL 103 01/28/2021 BUN 35 (H) 01/28/2021 CREATININE 2.83 (H) 01/28/2021 Lab Results Component Value Date HEPBSAG Nonreactive 01/14/2021 HD X 4 hours completed via right IJ tunneled catheter. Net UF -3.5L. Hypertensive during treatment. Scheduled metoprolol and prn labetalol given during treatment with minimal effect. Report given to primary RN. Kimmy Mitchell RNCHI [facility]arePOCT-GLU[facility]SE [id number] 11:56:00 Test Item Value Reference Range Interpretation Comments POC-GLUCOSE METER 97 mg/dL 70-110 : TESTED A T [facility] 6720 (BEAKER) (test code = [place], 1538) [address]: Stock Driver/Techni won ID = [id number] for RONAL BROCK PROTHROMBIN [id number] 09:33:00 Test Item Value Reference Range Interpretation Comments PROTIME (BEAKER) 19.1 seconds 11.9-14.2 H (test code = 759) INR (BEAKER) (test 1.63 See_Comment [Automat ed message] code = 370) The system [employer] generated this result transmitted ref erence range: <=5.90. The reference range was not used to int erpret this result as normal/abnormal . RECOMMENDED COUMADIN/WARFARIN INR THERAPY RANGESSTANDARD DOSE: 2.0 - 3.0 Includes: PROPHYLAXIS forvenous thrombosis, systemic embolization; TREATMENT for venous thrombosis and/or pulmonary embolus.HIGH RISK: Target INR is 2.5-3.5 for patients with mechanical heart valves.BASIC METABOLIC [id number] 09:07:00 Test Item Value Reference Range Interpretation Comments SODIUM (BEAKER) 135 meq/L 136-145 L (test code = 381) POTASSIUM (BEAKER) 4.5 meq/L 3.5-5.1 (test code = 379) CHLORIDE (BEAKER) 103 meq/L 98-107 (test code = 382) CO2 (BEAKER) (test 27 meq/L 22-29 code = 355) BLOOD UREA NITROGEN 35 mg/dL 7-21 H (BEAKER) (test code = 354) CREATININE (BEAKER) 2.83 mg/dL 0.57-1.25 H (test code = 358) GLUCOSE RANDOM 114 mg/dL 70-105 H (BEAKER) (test code = 652) CALCIUM (BEAKER) 8.9 mg/dL 8.4-10.2 (test code = 697) EGFR (BEAKER) (test 30 mL/min/1.73 ESTIMA ARI GFR IS code = 1092) sq m NOT ACCURATE CREATININE CLEARANCE IN PREDICTING GLOMERULAR FILTRATION RATE . ESTIMATED GFR I S NOT APPLICABLE FOR DIALYSIS PATIEN TS. Stock Driver ID - VALDEZ [id number] 09:07:00 Test Item Value Reference Range Interpretation Comments MAGNESIUM (BEAKER) (test code = 2.2 mg/dL 1.6-2.6 627) Stock Driver ID - VALDEZ [id number] 09:07:00 Test Item Value Reference Range Interpretation Comments PHOSPHORUS (BEAKER) (test code = 3.3 mg/dL 2.3-4.7 604) Stock Driver ID - VALDEZ MPROTHROMBIN TIME/[id number] 07:41:00 Test Item Value Reference Range Interpretation Comments PROTIME (BEAKER) 18.6 seconds 11.9-14.2 H (test code = 759) INR (BEAKER) (test 1.58 See_Comment [Automat ed message] code = 370) The system Um[employer] generated this result transmitted ref erence range: <=5.90. The reference range was not used to int erpret this result as normal/abnormal . RECOMMENDED COUMADIN/WARFARIN INR THERAPY RANGESSTANDARD DOSE: 2.0 - 3.0 Includes: PROPHYLAXIS forvenous thrombosis, systemic embolization; TREATMENT for venous thrombosis and/or pulmonary embolus.HIGH RISK: Target INR is 2.5-3.5 for patients with mechanical heart valves.HEPATIC FUNCTION [id number] 06:56:00 Test Item Value Reference Range Interpretation Comments TOTAL PROTEIN (BEAKER) (test code = 5.6 gm/dL 6.0-8.3 L 770) ALBUMIN (BEAKER) (test code = 1145) 2.5 g/dL 3.5-5.0 L BILIRUBIN TOTAL (BEAKER) (test code 0.7 mg/dL 0.2-1.2 = 377) BILIRUBIN DIRECT (BEAKER) (test 0.5 mg/dL 0.1-0.5 code = 706) ALKALINE PHOSPHATASE (BEAKER) (test 154 U/L 40-150 H code = 346) AST (SGOT) (BEAKER) (test code = 52 U/L 5-34 H 353) ALT (SGPT) (BEAKER) (test code = 184 U/L 6-55 H 347) Stock Driver ID - VALDEZ [id number] 06:56:00 Test Item Value Reference Range Interpretation Comments MAGNESIUM (BEAKER) (test code = 2.2 mg/dL 1.6-2.6 627) Stock Driver ID - VALDEZ [id number] 06:56:00 Test Item Value Reference Range Interpretation Comments PHOSPHORUS (BEAKER) (test code = 3.1 mg/dL 2.3-4.7 604) Stock Driver ID - VALDEZ [id number] 06:56:00 Test Item Value Reference Range Interpretation Comments POTASSIUM (BEAKER) (test code = 4.5 meq/L 3.5-5.1 379) Stock Driver ID - VALDEZ MRAD, CHEST, 1 VIEW, NON [id number] 06:36:00Reason for exam:->intubatedShould this be performed at the bedside?->Yes [facility] : 1975 Sex: MFINAL REPORT RAD, CHEST, 1 VIEW, NON DEPT INDICATION: intubated TESFAYE RISON: Prior day's exam FINDINGS: Portable frontal view of the chest. IMPRESSION: Support Lines: Dialysis catheter tip overlies right atrium. Feeding tube descends below the diaphragm. Drainage tubeoverlies the left pleura and upper abdomen. Lungs and pleura: Bilateral airspace disease and adjacent small bilateral effusions. No pneumothorax.Heart and mediastinum: Stable contours.Additional findings: None. Signed: Re Cantu MDReport Verified Date/Time: 01/28/2021 06:36:37 CBC W/PLT COUNT & AUTO DIFFERENTIAL 2021-01-28 06:31:00 Test Item Value Reference Range Interpretation Comments WHITE BLOOD CELL COUNT (BEAKER) 12.6 K/ L 3.5-10.5 H (test code = 775) RED BLOOD CELL COUNT (BEAKER) 2.56 M/ L 4.63-6.08 L (test code = 761) HEMOGLOBIN (BEAKER) (test code = 7.5 GM/DL 13.7-17.5 L 410) HEMATOCRIT (BEAKER) (test code = 23.9 % 40.1-51.0 L 411) MEAN CORPUSCULAR VOLUME (BEAKER) 93.4 fL 79.0-92.2 H (test code = 753) MEAN CORPUSCULAR HEMOGLOBIN 29.3 pg 25.7-32.2 (BEAKER) (test code = 751) MEAN CORPUSCULAR HEMOGLOBIN CONC 31.4 GM/DL 32.3-36.5 L (BEAKER) (test code = 752) RED CELL DISTRIBUTION WIDTH 18.6 % 11.6-14.4 H (BEAKER) (test code = 412) PLATELET COUNT (BEAKER) (test 121 K/CU MM 150-450 L code = 756) MEAN PLATELET VOLUME (BEAKER) 11.0 fL 9.4-12.4 (test code = 754) NUCLEATED RED BLOOD CELLS 0 /100 WBC 0-0 (BEAKER) (test code = 413) NEUTROPHILS RELATIVE PERCENT 84 % (BEAKER) (test code = 429) LYMPHOCYTES RELATIVE PERCENT 5 % (BEAKER) (test code = 430) MONOCYTES RELATIVE PERCENT 8 % (BEAKER) (test code = 431) EOSINOPHILS RELATIVE PERCENT 2 % (BEAKER) (test code = 432) BASOPHILS RELATIVE PERCENT 0 % (BEAKER) (test code = 437) NEUTROPHILS ABSOLUTE COUNT 10.48 K/ L 1.78-5.38 H (BEAKER) (test code = 670) LYMPHOCYTES ABSOLUTE COUNT 0.57 K/ L 1.32-3.57 L (BEAKER) (test code = 414) MONOCYTES ABSOLUTE COUNT (BEAKER) 1.00 K/ L 0.30-0.82 H (test code = 415) EOSINOPHILS ABSOLUTE COUNT 0.21 K/ L 0.04-0.54 (BEAKER) (test code = 416) BASOPHILS ABSOLUTE COUNT (BEAKER) 0.03 K/ L 0.01-0.08 (test code = 417) IMMATURE GRANULOCYTES-RELATIVE 2 % 0-1 H PERCENT (BEAKER) (test code = 2801) LACTIC ACID, [id number] 06:30:00 Test Item Value Reference Range Interpretation Comments LACTATE BLOOD ARTERIAL (2) 0.9 mmol/L 0.5-2.2 (BEAKER) (test code = 2874) Stock Driver ID - VALDEZ [id number] 06:29:00 Test Item Value Reference Range Interpretation Comments PARTIAL THROMBOPLASTIN TIME 37.9 seconds 22.5-36.0 H (BEAKER) (test code = 760) POCT-GLUCOSE [id number] 06:25:00 Test Item Value Reference Range Interpretation Comments POC-GLUCOSE METER 94 mg/dL 70-110 : TESTED A T [facility] [address] (BEAKER) (test code = [place], 1538) [address]: Stock Driver/Techni won ID = [id number] for Asa longManuelito OXYGEN SATURATION, [id number] 05:45:00 Test Item Value Reference Range Interpretation Comments O2 SATURATION (MEASURED) (BEAKER) 84.7 % (test code = 1455) BLOOD GAS, [id number] 05:43:00 Test Item Value Reference Range Interpretation Comments PH ARTERIAL (BEAKER) (test code = 7.48 7.35-7.45 H 383) PCO2 ARTERIAL (BEAKER) (test code 36 mm Hg 35-45 = 384) PO2 ARTERIAL (BEAKER) (test code = 98 mm Hg 80-90 H 385) O2 SATURATION ARTERIAL (BEAKER) 97.9 % 96.0-97.0 H (test code = 386) HCO3 ARTERIAL (BEAKER) (test code 26 mmol/L 21-29 = 388) BASE EXCESS ARTERIAL (BEAKER) 2.5 mmol/L -2.0-3.0 (test code = 387) PATIENT TEMPERATURE (BEAKER) (test 36.9 code = 1818) FIO2 (BEAKER) (test code = 1819) 44.0 CALCIUM, [id number] 05:42:00 Test Item Value Reference Range Interpretation Comments CALCIUM IONIZED (BEAKER) (test 1.19 mmol/L 1.12-1.27 code = 698) PH, BLOOD (BEAKER) (test code = 7.47 1810) POCT-GLUCOSE [id number] 00:02:00 Test Item Value Reference Range Interpretation Comments POC-GLUCOSE METER 97 mg/dL 70-110 : TESTED A T [facility] [address] (BEAKER) (test code = [place], 1538) [id number]: Stock Driver/Techni won ID = [id number] for AsaManuelito curiel RAD, CHEST, 1 VIEW, NON [id number] 21:24:00Reason for exam:- >tachypnea/assess left side hemothoraxShould this be performed at the bedside?->YesR[facility] : 1975 Sex: MFINAL REPORT RAD, CHEST, 1 VIEW, NON DEPT TECHNIQUE: Frontal view(s)of the chest. INDICATION: tachypnea/assess left side hemothorax. COMPARISON: 01/27/2021 at 0038 hoursFINDINGS/IMPRESSION: Lines/Tubes: Left-sided chest tube, Corpak tube, and right sided tunneled dialysis catheter with tip in the right atrium. Lungs/pleura: No convincing change in bilateral parenchymal opacities. No convincing change in a left-sided pleural effusion. No pneumothorax. Heart and Mediastinum: Unchanged cardiomegaly and vascular congestion. Soft Tissues and Bones: Unchanged. Signed: Delano Castro Verified Date/Time: 01/27/2021 21:24:57 Reading Location: [facility] TransitionalReading Room LACTIC ACID, [id number] 21:23:00 Test Item Value Reference Range Interpretation Comments LACTATE BLOOD ARTERIAL (2) 1.1 mmol/L 0.5-2.2 (BEAKER) (test code = 2874) Stock Driver ID - CAROLINA [id number] 21:12:00 Test Item Value Reference Range Interpretation Comments POTASSIUM (BEAKER) (test code = 4.5 meq/L 3.5-5.1 379) Stock Driver ID - CDPCBC (Hemogram only)2021-01-27 21:05:00 Test Item Value Reference Range Interpretation Comments WBC (test code = 6690-2) 12.5 See_Comment H [A utomated message] The system Umeng generated this result transmitted ref erence range: 3.5 - 10 .5 K/L. The refe rence range was not u sed to interpret this result as normal/abnor mal. RBC (test code = 789-8) 2.71 See_Comment L [Au tomated message] The system Umeng generated this result transmitted ref erence range: 4.63 - 6 .08 M/L. The refe rence range was not u sed to interpret this result as normal/abnor mal. MCHC (test code = 786-4) 32.4 See_Comment L [A utomated message] The system Umeng generated this result transmitted ref erence range: 32.3 - 3 6.5 GM/DL. The refe rence range was not u sed to interpret this result as normal/abnor mal. Hematocrit (test code = 24.7 % 40.1-51 L 4544-3) MCV (test code = 787-2) 91.1 fL 79-92.2 MCH (test code = 785-6) 29.5 pg 25.7-32.2 RDW (test code = 788-0) 18.4 % 11.6-14.4 H Platelets (test code = 116 See_Comment L [Aut omated message] 777-3) The system Umeng generated this result transmitted ref erence range: 150 - 45 0 K/CU MM. The referen ce range was not u sed to interpret this result as normal/abnor mal. MPV (test code = 11.2 fL 9.4-12.4 91082-1) nRBC (test code = 413) 0 See_Comment [Aut omated message] The system Umeng generated this result transmitted ref erence range: 0 - 0 /1 00 WBC. The refere nce range was not u sed to interpret this result as normal/abnor mal. Lab Interpretation (test Abnormal code = 80895-5) [facility] (Hemogram only)2021-01-27 21:05:00 Test Item Value Reference Range Interpretation Comments WBC (test code = 6690-2) 12.5 See_Comment H [A utomated message] The system Umeng generated this result transmitted ref erence range: 3.5 - 10 .5 K/L. The refe rence range was not u sed to interpret this result as normal/abnor mal. RBC (test code = 789-8) 2.71 See_Comment L [Au tomated message] The system Umeng generated this result transmitted ref erence range: 4.63 - 6 .08 M/L. The refe rence range was not u sed to interpret this result as normal/abnor mal. MCHC (test code = 786-4) 32.4 See_Comment L [A utomated message] The system Umeng generated this result transmitted ref erence range: 32.3 - 3 6.5 GM/DL. The refe rence range was not u sed to interpret this result as normal/abnor mal. Hematocrit (test code = 24.7 % 40.1-51 L 4544-3) MCV (test code = 787-2) 91.1 fL 79-92.2 MCH (test code = 785-6) 29.5 pg 25.7-32.2 RDW (test code = 788-0) 18.4 % 11.6-14.4 H Platelets (test code = 116 See_Comment L [Aut omated message] 777-3) The system Umeng generated this result transmitted ref erence range: 150 - 45 0 K/CU MM. The referen ce range was not u sed to interpret this result as normal/abnor mal. MPV (test code = 11.2 fL 9.4-12.4 63176-9) nRBC (test code = 413) 0 See_Comment [Aut omated message] The system Umeng generated this result transmitted ref erence range: 0 - 0 /1 00 WBC. The refere nce range was not u sed to interpret this result as normal/abnor mal. Lab Interpretation (test Abnormal code = 79739-8) [facility] (Hemogram only)2021-01-27 21:05:00 Test Item Value Reference Range Interpretation Comments WBC (test code = 6690-2) 12.5 See_Comment H [A utomated message] The system Umeng generated this result transmitted ref erence range: 3.5 - 10 .5 K/L. The refe rence range was not u sed to interpret this result as normal/abnor mal. RBC (test code = 789-8) 2.71 See_Comment L [Au tomated message] The system Umeng generated this result transmitted ref erence range: 4.63 - 6 .08 M/L. The refe rence range was not u sed to interpret this result as normal/abnor mal. MCHC (test code = 786-4) 32.4 See_Comment L [A utomated message] The system Umeng generated this result transmitted ref erence range: 32.3 - 3 6.5 GM/DL. The refe rence range was not u sed to interpret this result as normal/abnor mal. Hematocrit (test code = 24.7 % 40.1-51 L 4544-3) MCV (test code = 787-2) 91.1 fL 79-92.2 MCH (test code = 785-6) 29.5 pg 25.7-32.2 RDW (test code = 788-0) 18.4 % 11.6-14.4 H Platelets (test code = 116 See_Comment L [Aut omated message] 777-3) The system Umeng generated this result transmitted ref erence range: 150 - 45 0 K/CU MM. The referen ce range was not u sed to interpret this result as normal/abnor mal. MPV (test code = 11.2 fL 9.4-12.4 62971-5) nRBC (test code = 413) 0 See_Comment [Aut omated message] The system Umeng generated this result transmitted ref erence range: 0 - 0 /1 00 WBC. The refere nce range was not u sed to interpret this result as normal/abnor mal. Lab Interpretation (test Abnormal code = 00983-4) [facility] (HEMOGRAM ONLY)2021-01-27 21:05:00 Test Item Value Reference Range Interpretation Comments WHITE BLOOD CELL COUNT (BEAKER) 12.5 K/ L 3.5-10.5 H (test code = 775) RED BLOOD CELL COUNT (BEAKER) 2.71 M/ L 4.63-6.08 L (test code = 761) HEMOGLOBIN (BEAKER) (test code = 8.0 GM/DL 13.7-17.5 L 410) HEMATOCRIT (BEAKER) (test code = 24.7 % 40.1-51.0 L 411) MEAN CORPUSCULAR VOLUME (BEAKER) 91.1 fL 79.0-92.2 (test code = 753) MEAN CORPUSCULAR HEMOGLOBIN 29.5 pg 25.7-32.2 (BEAKER) (test code = 751) MEAN CORPUSCULAR HEMOGLOBIN CONC 32.4 GM/DL 32.3-36.5 (BEAKER) (test code = 752) RED CELL DISTRIBUTION WIDTH 18.4 % 11.6-14.4 H (BEAKER) (test code = 412) PLATELET COUNT (BEAKER) (test 116 K/CU MM 150-450 L code = 756) MEAN PLATELET VOLUME (BEAKER) 11.2 fL 9.4-12.4 (test code = 754) NUCLEATED RED BLOOD CELLS 0 /100 WBC 0-0 (BEAKER) (test code = 413) BLOOD GAS, [id number] 20:50:00 Test Item Value Reference Range Interpretation Comments PH ARTERIAL (BEAKER) (test code = 7.52 7.35-7.45 H 383) PCO2 ARTERIAL (BEAKER) (test code 33 mm Hg 35-45 L = 384) PO2 ARTERIAL (BEAKER) (test code = 72 mm Hg 80-90 L 385) O2 SATURATION ARTERIAL (BEAKER) 96.1 % 96.0-97.0 (test code = 386) HCO3 ARTERIAL (BEAKER) (test code 27 mmol/L 21-29 = 388) BASE EXCESS ARTERIAL (BEAKER) 3.6 mmol/L -2.0-3.0 H (test code = 387) PATIENT TEMPERATURE (BEAKER) (test 36.9 code = 1818) FIO2 (BEAKER) (test code = 1819) 36.0 [id number] 18:51:00 Test Item Value Reference Range Interpretation Comments MAGNESIUM (BEAKER) (test code = 2.2 mg/dL 1.6-2.6 627) Stock Driver ID - [id number] 18:51:00 Test Item Value Reference Range Interpretation Comments PHOSPHORUS (BEAKER) (test code = 3.2 mg/dL 2.3-4.7 604) Stock Driver ID - [id number] 18:51:00 Test Item Value Reference Range Interpretation Comments POTASSIUM (BEAKER) (test code = 4.3 meq/L 3.5-5.1 379) Stock Driver ID - [id number] 18:51:00 Test Item Value Reference Range Interpretation Comments SODIUM (BEAKER) (test code = 381) 135 meq/L 136-145 L Stock Driver ID - [id number] 12:12:00 Test Item Value Reference Range Interpretation Comments MAGNESIUM (BEAKER) (test code = 2.1 mg/dL 1.6-2.6 627) Stock Driver ID - GEMINI [id number] 12:12:00 Test Item Value Reference Range Interpretation Comments PHOSPHORUS (BEAKER) (test code = 2.9 mg/dL 2.3-4.7 604) Stock Driver ID - GEMINI [id number] 12:12:00 Test Item Value Reference Range Interpretation Comments POTASSIUM (BEAKER) (test code = 4.4 meq/L 3.5-5.1 379) Stock Driver ID - GEMINI FPOCT-GLUCOSE [id number] 11:53:00 Test Item Value Reference Range Interpretation Comments POC-GLUCOSE METER 91 mg/dL 70-110 : TESTED Elias Dominguez [facility] [address] (TAMARA) (test code = [place], 1538) [address]: Stock Driver/Techni won ID = [id number] for RONAL BROCK, CHEST, 1 VIEW, NON [id number] 07:51:00Reason for exam:- >intubatedShould this be performed at the bedside?->Yes [facility] : 1975 Sex: MFINAL REPORT TECHNIQUE: One view of the chest. INDICATION: Intubated. COMPARISON: Chest radiograph 01/26/2021. FINDINGS: LINES/TUBES: Interval extubation. Other lines/tubes are not significantly changed in position. LUNGS: Central pulmonary vascular congestion with bilateral airspace opacities. PLEURA: Suspected small bilateral pleural effusions. No pneumothorax. 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 Unchanged cardiac valve prosthesis. BONES AND SOFT TISSUES: Unchanged median sternotomywires. Soft tissues are unremarkable. IMPRESSION:Lines/tubes as above. Central pulmonary vascular congestion with bilateral airspace opacities, suspicious for pulmonary edema. Superimposed aspiration/pneumonia cannot be excluded. Otherwise, no significant change since 01/26/2021. Signed: Araseli Browningepting Verified Date/Time: 01/27/2021 07:51:17 Reading Location: [facility] Diagnostic Imaging Reading Room - SLSWV F1 1129 BASIC METABOLIC [id number] 07:12:00 Test Item Value Reference Range Interpretation Comments SODIUM (BEAKER) 135 meq/L 136-145 L (test code = 381) POTASSIUM (BEAKER) 4.3 meq/L 3.5-5.1 (test code = 379) CHLORIDE (BEAKER) 104 meq/L 98-107 (test code = 382) CO2 (BEAKER) (test 24 meq/L 22-29 code = 355) BLOOD UREA NITROGEN 18 mg/dL 7-21 (BEAKER) (test code = 354) CREATININE (BEAKER) 1.56 mg/dL 0.57-1.25 H (test code = 358) GLUCOSE RANDOM 127 mg/dL 70-105 H (BEAKER) (test code = 652) CALCIUM (BEAKER) 8.6 mg/dL 8.4-10.2 (test code = 697) EGFR (BEAKER) (test 59 mL/min/1.73 ESTIMA ARI GFR IS code = 1092) sq m NOT ACCURATE CREATININE CLEARANCE IN PREDICTING GLOMERULAR FILTRATION RATE . ESTIMATED GFR I S NOT APPLICABLE FOR DIALYSIS PATIEN TS. Stock Driver ID - GEMINI FPROTHROMBIN [id number] 07:09:00 Test Item Value Reference Range Interpretation Comments PROTIME (BEAKER) 17.1 seconds 11.9-14.2 H (test code = 759) INR (BEAKER) (test 1.42 See_Comment [Automat ed message] code = 370) The system Umeng generated this result transmitted ref erence range: <=5.90. The reference range was not used to int erpret this result as normal/abnormal . RECOMMENDED COUMADIN/WARFARIN INR THERAPY RANGESSTANDARD DOSE: 2.0 - 3.0 Includes: PROPHYLAXIS forvenous thrombosis, systemic embolization; TREATMENT for venous thrombosis and/or pulmonary embolus.HIGH RISK: Target INR is 2.5-3.5 for patients with mechanical heart valves.HEPATIC FUNCTION [id number] 04:21:00 Test Item Value Reference Range Interpretation Comments TOTAL PROTEIN (BEAKER) (test code = 5.5 gm/dL 6.0-8.3 L 770) ALBUMIN (BEAKER) (test code = 1145) 2.5 g/dL 3.5-5.0 L BILIRUBIN TOTAL (BEAKER) (test code 0.9 mg/dL 0.2-1.2 = 377) BILIRUBIN DIRECT (BEAKER) (test 0.6 mg/dL 0.1-0.5 H code = 706) ALKALINE PHOSPHATASE (BEAKER) (test 140 U/L 40-150 code = 346) AST (SGOT) (BEAKER) (test code = 89 U/L 5-34 H 353) ALT (SGPT) (BEAKER) (test code = 248 U/L 6-55 H 347) Stock Driver ID - LINA [id number] 04:21:00 Test Item Value Reference Range Interpretation Comments MAGNESIUM (BEAKER) (test code = 2.1 mg/dL 1.6-2.6 627) Stock Driver ID - LINA [id number] 04:21:00 Test Item Value Reference Range Interpretation Comments PHOSPHORUS (BEAKER) (test code = 2.5 mg/dL 2.3-4.7 604) Stock Driver ID - LINA [id number] 04:21:00 Test Item Value Reference Range Interpretation Comments POTASSIUM (BEAKER) (test code = 4.0 meq/L 3.5-5.1 379) Stock Driver ID - LINA [id number] 04:14:00 Test Item Value Reference Range Interpretation Comments PARTIAL THROMBOPLASTIN TIME 35.4 seconds 22.5-36.0 (BEAKER) (test code = 760) LACTIC ACID, [id number] 04:05:00 Test Item Value Reference Range Interpretation Comments LACTATE BLOOD ARTERIAL (2) 0.9 mmol/L 0.5-2.2 (BEAKER) (test code = 2874) Stock Driver ID - LINA LCBC W/PLT COUNT & AUTO [id number] 03:58:00 Test Item Value Reference Range Interpretation Comments WHITE BLOOD CELL COUNT (BEAKER) 10.8 K/ L 3.5-10.5 H (test code = 775) RED BLOOD CELL COUNT (BEAKER) 2.57 M/ L 4.63-6.08 L (test code = 761) HEMOGLOBIN (BEAKER) (test code = 7.6 GM/DL 13.7-17.5 L 410) HEMATOCRIT (BEAKER) (test code = 23.8 % 40.1-51.0 L 411) MEAN CORPUSCULAR VOLUME (BEAKER) 92.6 fL 79.0-92.2 H (test code = 753) MEAN CORPUSCULAR HEMOGLOBIN 29.6 pg 25.7-32.2 (BEAKER) (test code = 751) MEAN CORPUSCULAR HEMOGLOBIN CONC 31.9 GM/DL 32.3-36.5 L (BEAKER) (test code = 752) RED CELL DISTRIBUTION WIDTH 18.0 % 11.6-14.4 H (BEAKER) (test code = 412) PLATELET COUNT (BEAKER) (test code 99 K/CU MM 150-450 L = 756) MEAN PLATELET VOLUME (BEAKER) 10.8 fL 9.4-12.4 (test code = 754) NUCLEATED RED BLOOD CELLS (BEAKER) 0 /100 WBC 0-0 (test code = 413) NEUTROPHILS RELATIVE PERCENT 87 % (BEAKER) (test code = 429) LYMPHOCYTES RELATIVE PERCENT 4 % (BEAKER) (test code = 430) MONOCYTES RELATIVE PERCENT 6 % (BEAKER) (test code = 431) EOSINOPHILS RELATIVE PERCENT 2 % (BEAKER) (test code = 432) BASOPHILS RELATIVE PERCENT 0 % (BEAKER) (test code = 437) NEUTROPHILS ABSOLUTE COUNT 9.34 K/ L 1.78-5.38 H (BEAKER) (test code = 670) LYMPHOCYTES ABSOLUTE COUNT 0.42 K/ L 1.32-3.57 L (BEAKER) (test code = 414) MONOCYTES ABSOLUTE COUNT (BEAKER) 0.64 K/ L 0.30-0.82 (test code = 415) EOSINOPHILS ABSOLUTE COUNT 0.19 K/ L 0.04-0.54 (BEAKER) (test code = 416) BASOPHILS ABSOLUTE COUNT (BEAKER) 0.02 K/ L 0.01-0.08 (test code = 417) IMMATURE GRANULOCYTES-RELATIVE 2 % 0-1 H PERCENT (BEAKER) (test code = 2801) BLOOD GAS, [id number] 03:52:00 Test Item Value Reference Range Interpretation Comments PH ARTERIAL (BEAKER) (test code = 7.47 7.35-7.45 H 383) PCO2 ARTERIAL (BEAKER) (test code 39 mm Hg 35-45 = 384) PO2 ARTERIAL (BEAKER) (test code = 93 mm Hg 80-90 H 385) O2 SATURATION ARTERIAL (BEAKER) 97.5 % 96.0-97.0 H (test code = 386) HCO3 ARTERIAL (BEAKER) (test code 28 mmol/L 21-29 = 388) BASE EXCESS ARTERIAL (BEAKER) 3.6 mmol/L -2.0-3.0 H (test code = 387) PATIENT TEMPERATURE (BEAKER) (test 37.0 code = 1818) FIO2 (BEAKER) (test code = 1819) 100.0 OXYGEN SATURATION, [id number] 03:50:00 Test Item Value Reference Range Interpretation Comments O2 SATURATION (MEASURED) (BEAKER) 64.2 % (test code = 1455) CALCIUM, [id number] 03:50:00 Test Item Value Reference Range Interpretation Comments CALCIUM IONIZED (BEAKER) (test 1.15 mmol/L 1.12-1.27 code = 698) PH, BLOOD (BEAKER) (test code = 7.43 1810) Insert Arterial [id number] 23:51:37Jes Ramos NP 01/26/2021 11:56 PMInsert Arterial Line Date/Time: 01/26/2021 11:51 PMPerformed by: Jes Ramos NPAuthorized by: Jes Ramos NP Consent: The procedure was performed in an emergent situation. Verbal consent obtained. Written consent not obtained.Risks and benefits discussed: Patient had previous A-line.Consent given by: patientPatient understanding: patient states understanding of the procedure being performedImaging studies: imaging studies available (Ultra sound gu ided)Required items: required blood products, implants, devices, and special equipment availablePatient identity confirmed: verbally with patient, arm band, provided demographic data and hospital-assigned identification numberTime out: Immediately prior to procedure a "time out" was called to verify the correct patient, procedure, equipment, senior support engineer and site/side marked as required.Preparation:Patient was prepped and draped in the usual sterile fashion.Indications: multiple ABGs and hemodynamic monitoringLocation: left radialAnesthesia: local infiltration Anesthesia:Local Anesthetic: lidocaine 2% without epinephrine Sedation:Patient sedated: no Parish's test normal: yesNeedle gauge: 20Seldinger technique: Seldinger technique usedPost-procedure: line sutured and dressing appliedPost-procedure CMS: [facility] Arterial [id number] 23:51:37Jes Ramos NP 01/26/2021 11:56 PMInsert Arterial Line Date/Time: 01/26/2021 11:51 PMPerformed by: Jes Ramos NPAuthorized by: Jes Ramos NP Consent: The procedure was performed in an emergent situation. Verbal consent obtained. Written consent not obtained.Risks and benefits discussed: Patient had previous A-line.Consent given by: patientPatient understanding: patient states understanding of the procedure being performedImaging studies: imaging studies available (Ultra sound gu ided)Required items: required blood products, implants, devices, and special equipment availablePatient identity confirmed: verbally with patient, arm band, provided demographic data and hospital-assigned identification numberTime out: Immediately prior to procedure a "time out" was called to verify the correct patient, procedure, equipment, senior support engineer and site/side marked as required.Preparation:Patient was prepped and draped in the usual sterile fashion.Indications: multiple ABGs and hemodynamic monitoringLocation: left radialAnesthesia: local infiltration Anesthesia:Local Anesthetic: lidocaine 2% without epinephrine Sedation:Patient sedated: no Parish's test normal: yesNeedle gauge: 20Seldinger technique: Seldinger technique usedPost-procedure: line sutured and dressing appliedPost-procedure CMS: [facility] Arterial [id number] 23:51:37Jes Ramos NP 01/26/2021 11:56 PMInsert Arterial Line Date/Time: 01/26/2021 11:51 PMPerformed by: Jes Ramos NPAuthorized by: Jes Ramos NP Consent: The procedure was performed in an emergent situation. Verbal consent obtained. Written consent not obtained.Risks and benefits discussed: Patient had previous A-line.Consent given by: patientPatient understanding: patient states understanding of the procedure being performedImaging studies: imaging studies available (Ultra sound gu ided)Required items: required blood products, implants, devices, and special equipment availablePatient identity confirmed: verbally with patient, arm band, provided demographic data and hospital-assigned identification numberTime out: Immediately prior to procedure a "time out" was called to verify the correct patient, procedure, equipment, senior support engineer and site/side marked as required.Preparation:Patient was prepped and draped in the usual sterile fashion.Indications: multiple ABGs and hemodynamic monitoringLocation: left radialAnesthesia: local infiltration Anesthesia:Local Anesthetic: lidocaine 2% without epinephrine Sedation:Patient sedated: no Parish's test normal: yesNeedle gauge: 20Seldinger technique: Seldinger technique usedPost-procedure: line sutured and dressing appliedPost-procedure [facility] [id number] 22:14:00 Test Item Value Reference Range Interpretation Comments POC-GLUCOSE METER 107 mg/dL 70-110 : TESTED A T [facility] [address] (BEAKER) (test code = [place], 1538) [address]: Stock Driver/Techni won ID = [id number] for DO September BASIC METABOLIC [id number] 21:01:00 Test Item Value Reference Range Interpretation Comments SODIUM (BEAKER) 134 meq/L 136-145 L (test code = 381) POTASSIUM (BEAKER) 4.2 meq/L 3.5-5.1 (test code = 379) CHLORIDE (BEAKER) 103 meq/L 98-107 (test code = 382) CO2 (BEAKER) (test 24 meq/L 22-29 code = 355) BLOOD UREA NITROGEN 16 mg/dL 7-21 (BEAKER) (test code = 354) CREATININE (BEAKER) 1.63 mg/dL 0.57-1.25 H (test code = 358) GLUCOSE RANDOM 107 mg/dL 70-105 H (BEAKER) (test code = 652) CALCIUM (BEAKER) 8.9 mg/dL 8.4-10.2 (test code = 697) EGFR (BEAKER) (test 56 mL/min/1.73 ESTIMA ARI GFR IS code = 1092) sq m NOT ACCURATE CREATININE CLEARANCE IN PREDICTING GLOMERULAR FILTRATION RATE . ESTIMATED GFR I S NOT APPLICABLE FOR DIALYSIS PATIEN TS. Stock Driver ID - [id number] 21:01:00 Test Item Value Reference Range Interpretation Comments MAGNESIUM (BEAKER) (test code = 2.2 mg/dL 1.6-2.6 627) Stock Driver ID - [id number] 21:01:00 Test Item Value Reference Range Interpretation Comments PHOSPHORUS (BEAKER) (test code = 2.0 mg/dL 2.3-4.7 L 604) Stock Driver ID - BSCALCIUM, [id number] 20:38:00 Test Item Value Reference Range Interpretation Comments CALCIUM IONIZED (BEAKER) (test 1.24 mmol/L 1.12-1.27 code = 698) PH, BLOOD (BEAKER) (test code = 7.43 1810) [id number] 17:42:00 Test Item Value Reference Range Interpretation Comments POTASSIUM (BEAKER) (test code = 4.2 meq/L 3.5-5.1 379) Stock Driver ID - BSPOCT-GLUCOSE [id number] 17:02:00 Test Item Value Reference Range Interpretation Comments POC-GLUCOSE METER 105 mg/dL 70-110 : TESTED A T [facility] 6720 (BEAKER) (test code = [facility], 1538) [address]: Stock Driver/Techni won ID = [id number] for ABRAN PALOMINO [id number] 12:47:00 Test Item Value Reference Range Interpretation Comments POTASSIUM (BEAKER) (test code = 4.3 meq/L 3.5-5.1 379) Stock Driver ID - AMARISONPOCT-GLUCOSE [id number] 12:25:00 Test Item Value Reference Range Interpretation Comments POC-GLUCOSE METER 100 mg/dL 70-110 : TESTED A T [facility] 6720 (BEAKER) (test code = [facility], 1538) [address]: Stock Driver/Techni won ID = [id number] for ABRAN PALOMINO [id number] 08:42:00 Test Item Value Reference Range Interpretation Comments MAGNESIUM (BEAKER) (test code = 2.1 mg/dL 1.6-2.6 627) Stock Driver ID - [id number] 08:42:00 Test Item Value Reference Range Interpretation Comments PHOSPHORUS (BEAKER) (test code = 2.7 mg/dL 2.3-4.7 604) Stock Driver ID - [id number] 08:42:00 Test Item Value Reference Range Interpretation Comments POTASSIUM (BEAKER) (test code = 4.4 meq/L 3.5-5.1 379) Stock Driver ID - JOJOPrepare [id number] 08:26:00 Test Item Value Reference Range Interpretation Comments Unit ABO (test code = O Pos 7355623) UNIT NUMBER (test code = [id number] 934-0) Status (test code = RETURNED FROM ISSUE 15100819) Blood Bank Product (test RED BLOOD CELLS code = 2263) PRODUCT CODE (test code = B6329H50 933-2) CROSSMATCH (test code = COMPATIBLE 4) [facility] [id number] 08:26:00 Test Item Value Reference Range Interpretation Comments Unit ABO (test code = O Pos 9178353) UNIT NUMBER (test code = [id number] 934-0) Status (test code = RETURNED FROM ISSUE 15100819) Blood Bank Product (test RED BLOOD CELLS code = 2263) PRODUCT CODE (test code = Z6738Z28 933-2) CROSSMATCH (test code = COMPATIBLE 2264) [facility] [id number] 08:26:00 Test Item Value Reference Range Interpretation Comments Unit ABO (test code = O Pos 5268025) UNIT NUMBER (test code = [id number] 934-0) Status (test code = RETURNED FROM ISSUE 15100819) Blood Bank Product (test RED BLOOD CELLS code = 2263) PRODUCT CODE (test code = M4125X68 933-2) CROSSMATCH (test code = COMPATIBLE 2264) [facility] [id number] 08:26:00 Test Item Value Reference Range Interpretation Comments POC-GLUCOSE METER 103 mg/dL 70-110 : TESTED A T [facility] 6720 (BEAKER) (test code = [facility] [place], 1538) [address]: Stock Driver/Techni won ID = [id number] for SYLWIA TIAN NCREZA CALCIUM, [id number] 07:15:00 Test Item Value Reference Range Interpretation Comments CALCIUM IONIZED (BEAKER) (test 1.19 mmol/L 1.12-1.27 code = 698) PH, BLOOD (BEAKER) (test code = 7.41 1810) BLOOD GAS, [id number] 06:40:00 Test Item Value Reference Range Interpretation Comments PH ARTERIAL (BEAKER) (test code = 7.46 7.35-7.45 H 383) PCO2 ARTERIAL (BEAKER) (test code 41 mm Hg 35-45 = 384) PO2 ARTERIAL (BEAKER) (test code = 159 mm Hg 80-90 H 385) O2 SATURATION ARTERIAL (BEAKER) 99.1 % 96.0-97.0 H (test code = 386) HCO3 ARTERIAL (BEAKER) (test code 28 mmol/L 21-29 = 388) BASE EXCESS ARTERIAL (BEAKER) 4.3 mmol/L -2.0-3.0 H (test code = 387) PATIENT TEMPERATURE (BEAKER) (test 37.0 code = 1818) FIO2 (BEAKER) (test code = 1819) 40.0 DIGOXIN [id number] 05:24:00 Test Item Value Reference Range Interpretation Comments DIGOXIN LEVEL (BEAKER) (test code 0.76 ng/mL 0.80-2.00 L = 669) Stock Driver ID - VALDEZ MOXYGEN SATURATION, [id number] 05:13:00 Test Item Value Reference Range Interpretation Comments O2 SATURATION (MEASURED) (BEAKER) 62.6 % (test code = 1455) BLOOD GAS, [id number] 05:11:00 Test Item Value Reference Range Interpretation Comments PH ARTERIAL (BEAKER) (test code = 7.59 7.35-7.45 H 383) PCO2 ARTERIAL (BEAKER) (test code 31 mm Hg 35-45 L = 384) PO2 ARTERIAL (BEAKER) (test code = 196 mm Hg 80-90 H 385) O2 SATURATION ARTERIAL (BEAKER) 99.5 % 96.0-97.0 H (test code = 386) HCO3 ARTERIAL (BEAKER) (test code 29 mmol/L 21-29 = 388) BASE EXCESS ARTERIAL (BEAKER) 6.5 mmol/L -2.0-3.0 H (test code = 387) PATIENT TEMPERATURE (BEAKER) (test 37.0 code = 1818) FIO2 (BEAKER) (test code = 1819) 40.0 [id number] 05:04:00 Test Item Value Reference Range Interpretation Comments PHOSPHORUS (BEAKER) (test code = 1.0 mg/dL 2.3-4.7 LL 604) Stock Driver ID - VALDEZ MBASIC METABOLIC [id number] 04:53:00 Test Item Value Reference Range Interpretation Comments SODIUM (BEAKER) 135 meq/L 136-145 L (test code = 381) POTASSIUM (BEAKER) 4.2 meq/L 3.5-5.1 (test code = 379) CHLORIDE (BEAKER) 102 meq/L 98-107 (test code = 382) CO2 (BEAKER) (test 26 meq/L 22-29 code = 355) BLOOD UREA NITROGEN 14 mg/dL 7-21 (BEAKER) (test code = 354) CREATININE (BEAKER) 1.47 mg/dL 0.57-1.25 H (test code = 358) GLUCOSE RANDOM 109 mg/dL 70-105 H (BEAKER) (test code = 652) CALCIUM (BEAKER) 8.9 mg/dL 8.4-10.2 (test code = 697) EGFR (BEAKER) (test 63 mL/min/1.73 ESTIMA ARI GFR IS code = 1092) sq m NOT ACCURATE CREATININE CLEARANCE IN PREDICTING GLOMERULAR FILTRATION RATE . ESTIMATED GFR I S NOT APPLICABLE FOR DIALYSIS PATIEN TS. Stock Driver ID - VALDEZ [id number] 04:53:00 Test Item Value Reference Range Interpretation Comments MAGNESIUM (BEAKER) (test code = 2.3 mg/dL 1.6-2.6 627) Stock Driver ID - VALDEZ [id number] 04:44:00 Test Item Value Reference Range Interpretation Comments PARTIAL THROMBOPLASTIN TIME 35.3 seconds 22.5-36.0 (BEAKER) (test code = 760) PROTHROMBIN TIME/[id number] 04:43:00 Test Item Value Reference Range Interpretation Comments PROTIME (BEAKER) 16.6 seconds 11.9-14.2 H (test code = 759) INR (BEAKER) (test 1.36 See_Comment [Automat ed message] code = 370) The system [employer] generated this result transmitted ref erence range: <=5.90. The reference range was not used to int erpret this result as normal/abnormal . RECOMMENDED COUMADIN/WARFARIN INR THERAPY RANGESSTANDARD DOSE: 2.0 - 3.0 Includes: PROPHYLAXIS forvenous thrombosis, systemic embolization; TREATMENT for venous thrombosis and/or pulmonary embolus.HIGH RISK: Target INR is 2.5-3.5 for patients with mechanical heart valves.CBC W/PLT COUNT & AUTO DIFFERENTIAL 2021-01-26 04:40:00 Test Item Value Reference Range Interpretation Comments WHITE BLOOD CELL COUNT (BEAKER) 8.7 K/ L 3.5-10.5 (test code = 775) RED BLOOD CELL COUNT (BEAKER) 2.55 M/ L 4.63-6.08 L (test code = 761) HEMOGLOBIN (BEAKER) (test code = 7.4 GM/DL 13.7-17.5 L 410) HEMATOCRIT (BEAKER) (test code = 23.4 % 40.1-51.0 L 411) MEAN CORPUSCULAR VOLUME (BEAKER) 91.8 fL 79.0-92.2 (test code = 753) MEAN CORPUSCULAR HEMOGLOBIN 29.0 pg 25.7-32.2 (BEAKER) (test code = 751) MEAN CORPUSCULAR HEMOGLOBIN CONC 31.6 GM/DL 32.3-36.5 L (BEAKER) (test code = 752) RED CELL DISTRIBUTION WIDTH 18.0 % 11.6-14.4 H (BEAKER) (test code = 412) PLATELET COUNT (BEAKER) (test code 82 K/CU MM 150-450 L = 756) MEAN PLATELET VOLUME (BEAKER) 10.7 fL 9.4-12.4 (test code = 754) NUCLEATED RED BLOOD CELLS (BEAKER) 1 /100 WBC 0-0 H (test code = 413) NEUTROPHILS RELATIVE PERCENT 87 % (BEAKER) (test code = 429) LYMPHOCYTES RELATIVE PERCENT 5 % (BEAKER) (test code = 430) MONOCYTES RELATIVE PERCENT 5 % (BEAKER) (test code = 431) EOSINOPHILS RELATIVE PERCENT 2 % (BEAKER) (test code = 432) BASOPHILS RELATIVE PERCENT 0 % (BEAKER) (test code = 437) NEUTROPHILS ABSOLUTE COUNT 7.50 K/ L 1.78-5.38 H (BEAKER) (test code = 670) LYMPHOCYTES ABSOLUTE COUNT 0.44 K/ L 1.32-3.57 L (BEAKER) (test code = 414) MONOCYTES ABSOLUTE COUNT (BEAKER) 0.40 K/ L 0.30-0.82 (test code = 415) EOSINOPHILS ABSOLUTE COUNT 0.15 K/ L 0.04-0.54 (BEAKER) (test code = 416) BASOPHILS ABSOLUTE COUNT (BEAKER) 0.01 K/ L 0.01-0.08 (test code = 417) IMMATURE GRANULOCYTES-RELATIVE 2 % 0-1 H PERCENT (BEAKER) (test code = 2801) LACTIC ACID, [id number] 04:38:00 Test Item Value Reference Range Interpretation Comments LACTATE BLOOD ARTERIAL (2) 1.5 mmol/L 0.5-2.2 (BEAKER) (test code = 2874) Stock Driver ID - VALDEZ MBLOOD GAS, [id number] 04:34:00 Test Item Value Reference Range Interpretation Comments PH ARTERIAL (BEAKER) (test code = 7.54 7.35-7.45 H 383) PCO2 ARTERIAL (BEAKER) (test code 34 mm Hg 35-45 L = 384) PO2 ARTERIAL (BEAKER) (test code = 40 mm Hg 80-90 LL 385) O2 SATURATION ARTERIAL (BEAKER) 81.7 % 96.0-97.0 L (test code = 386) HCO3 ARTERIAL (BEAKER) (test code 29 mmol/L 21-29 = 388) BASE EXCESS ARTERIAL (BEAKER) 5.7 mmol/L -2.0-3.0 H (test code = 387) PATIENT TEMPERATURE (BEAKER) (test 37.0 code = 1818) FIO2 (BEAKER) (test code = 1819) 40.0 RAD, CHEST, 1 VIEW, NON [id number] 02:40:00Reason for exam:- >intubatedShould this be performed at the bedside?->Yes [facility] : 1975 Sex: MFINAL REPORT RAD, CHEST, 1 VIEW, NON DEPT INDICATION: intubated TESFAYE RISON: Prior day's exam FINDINGS: Portable frontal view of the chest. IMPRESSION: Support Lines: No significant change. Lungs and pleura: Unchanged airspace and pleural opacities. No pneumothorax.Heart and mediastinum: Stable cardiomegaly. Additional findings: None. Signed: Abhay Melo Verified Date/Time: 01/26/2021 02:40:28 RAD, ABDOMEN/KUB, 1 VIEW [id number] 00:28:00Reason for exam:->Corpak position [facility] : 1975 Sex: MFINAL REPORT Abdomen one view Comparison: Abdominal radiograph 021. Reason for exam: Corpak position Findings: Supine view of the abdomen was obtained.There is anenteric tube with tip in the gastric body. There is mild gaseous distention of small and large bowelloops, which may represent an ileus.There are mediastinal and bilateral chest tubes. There are bibasilar opacities, which may represent atelectasis and/or pneumonia. There is a probable left pleural effusion. Signed: Amuta, Buck MDReport Verified Date/Time: 01/26/2021 00:28:31 XR abdomen / KUB 1 [id number] 00:28:00Interface, External Ris In - 01/26/2021 12:30 AM CDTFINAL REPORT Abdomen one view Comparison: Abdominal radiograph 01/19/2021. Reason for exam: Corpak position Findings: Supine view of the abdomen was obtained.There is an enteric tube with tip in the gastric body. There is mild gaseous distention of small and large bowel loops, which may represent an ileus.There are mediastinaland bilateral chest tubes. There are bibasilar opacities, which may represent atelectasis and/or pneumonia. There is a probable left pleural effusion. Signed: Buck Warren Verified Date/Time: 01/26/2021 00:28:31 [facility] [id number] 00:28:00Interface, External Ris In - 01/26/2021 12:30 AM CDTFINAL REPORT Abdomen one view Comparison: Abdominal radiograph 01/19/2021. Reason for exam: Corpak position Findings: Supine view of the abdomen was obtained.There is an enteric tube with tip in the gastric body. There is mild gaseous distention of small and large bowel loops, which may represent an ileus.There are mediastinal and bilateral chest tubes. There are bibasilar opacities, which may represent atelectasis and/or pneumonia. There is a probable left pleural effusion. Signed: Buck Warren Verified Date/Time: 01/26/2021 00:28:31 [facility] KUB 1 [id number] 00:28:00Interface, External Ris In - 01/26/2021 12:30 AM CDTFINAL REPORT Abdomen one view Comparison: Abdominal radiograph 01/19/2021. Reason for exam: Corpak position Findings: Supine view of the abdomen was obtained.There is an enteric tube with tip in the gastric body. There is mild gaseous distention of small and large bowel loops, which may represent an ileus.There are mediastinal and bilateral chest tubes. There are bibasilar opacities, which may represent atelectasis and/or pneumonia. There is a probable left pleural effusion. Signed: Buck Warreneport Verified Date/Time: 01/26/2021 00:28:31 [facility] [id number] 22:11:00 Test Item Value Reference Range Interpretation Comments POC-GLUCOSE METER 97 mg/dL 70-110 : TESTED A T [facility] 6720 (BEAKER) (test code = [facility] [place], 1538) [address]: Stock Driver/Techni won ID = [id number] for MESERET ETTSeptember BASIC METABOLIC [id number] 20:58:00 Test Item Value Reference Range Interpretation Comments SODIUM (BEAKER) 134 meq/L 136-145 L (test code = 381) POTASSIUM (BEAKER) 4.1 meq/L 3.5-5.1 (test code = 379) CHLORIDE (BEAKER) 103 meq/L 98-107 (test code = 382) CO2 (BEAKER) (test 24 meq/L 22-29 code = 355) BLOOD UREA NITROGEN 14 mg/dL 7-21 (BEAKER) (test code = 354) CREATININE (BEAKER) 1.50 mg/dL 0.57-1.25 H (test code = 358) GLUCOSE RANDOM 110 mg/dL 70-105 H (BEAKER) (test code = 652) CALCIUM (BEAKER) 8.7 mg/dL 8.4-10.2 (test code = 697) EGFR (BEAKER) (test 62 mL/min/1.73 ESTIMA RAI GFR IS code = 1092) sq m NOT ACCURATE CREATININE CLEARANCE IN PREDICTING GLOMERULAR FILTRATION RATE . ESTIMATED GFR I S NOT APPLICABLE FOR DIALYSIS PATIEN TS. Stock Driver ID - [id number] 20:58:00 Test Item Value Reference Range Interpretation Comments MAGNESIUM (BEAKER) (test code = 1.9 mg/dL 1.6-2.6 627) Stock Driver ID - CDPPOCT-GLUCOSE [id number] 18:18:00 Test Item Value Reference Range Interpretation Comments POC-GLUCOSE METER 103 mg/dL 70-110 : TESTED A T [facility] 6720 (BEAKER) (test code = [facility], 1538) [address]: Stock Driver/Techni won ID = [id number] for LEVY BARBOZA [id number] 17:35:00 Test Item Value Reference Range Interpretation Comments MAGNESIUM (BEAKER) (test code = 2.1 mg/dL 1.6-2.6 627) Stock Driver ID - [id number] 17:35:00 Test Item Value Reference Range Interpretation Comments PHOSPHORUS (BEAKER) (test code = 2.0 mg/dL 2.3-4.7 L 604) Stock Driver ID - [id number] 17:35:00 Test Item Value Reference Range Interpretation Comments POTASSIUM (BEAKER) (test code = 3.8 meq/L 3.5-5.1 379) Stock Driver ID - [id number] 17:35:00 Test Item Value Reference Range Interpretation Comments SODIUM (BEAKER) (test code = 381) 136 meq/L 136-145 Stock Driver ID - CDPBLOOD GAS, [id number] 16:13:00 Test Item Value Reference Range Interpretation Comments PH ARTERIAL (BEAKER) (test code = 7.45 7.35-7.45 383) PCO2 ARTERIAL (BEAKER) (test code 41 mm Hg 35-45 = 384) PO2 ARTERIAL (BEAKER) (test code = 112 mm Hg 80-90 H 385) O2 SATURATION ARTERIAL (BEAKER) 98.2 % 96.0-97.0 H (test code = 386) HCO3 ARTERIAL (BEAKER) (test code 28 mmol/L 21-29 = 388) BASE EXCESS ARTERIAL (BEAKER) 3.6 mmol/L -2.0-3.0 H (test code = 387) PATIENT TEMPERATURE (BEAKER) (test 37.0 code = 1818) FIO2 (BEAKER) (test code = 1819) 40.0 CBC W/PLT COUNT & AUTO [id number] 14:29:00 Test Item Value Reference Range Interpretation Comments WHITE BLOOD CELL COUNT (BEAKER) 11.7 K/ L 3.5-10.5 H (test code = 775) RED BLOOD CELL COUNT (BEAKER) 2.85 M/ L 4.63-6.08 L (test code = 761) HEMOGLOBIN (BEAKER) (test code = 8.2 GM/DL 13.7-17.5 L 410) HEMATOCRIT (BEAKER) (test code = 25.9 % 40.1-51.0 L 411) MEAN CORPUSCULAR VOLUME (BEAKER) 90.9 fL 79.0-92.2 (test code = 753) MEAN CORPUSCULAR HEMOGLOBIN 28.8 pg 25.7-32.2 (BEAKER) (test code = 751) MEAN CORPUSCULAR HEMOGLOBIN CONC 31.7 GM/DL 32.3-36.5 L (BEAKER) (test code = 752) RED CELL DISTRIBUTION WIDTH 17.9 % 11.6-14.4 H (BEAKER) (test code = 412) PLATELET COUNT (BEAKER) (test code 94 K/CU MM 150-450 L = 756) MEAN PLATELET VOLUME (BEAKER) 10.6 fL 9.4-12.4 (test code = 754) NUCLEATED RED BLOOD CELLS (BEAKER) 1 /100 WBC 0-0 H (test code = 413) NEUTROPHILS RELATIVE PERCENT 88 % (BEAKER) (test code = 429) LYMPHOCYTES RELATIVE PERCENT 5 % (BEAKER) (test code = 430) MONOCYTES RELATIVE PERCENT 5 % (BEAKER) (test code = 431) EOSINOPHILS RELATIVE PERCENT 1 % (BEAKER) (test code = 432) BASOPHILS RELATIVE PERCENT 0 % (BEAKER) (test code = 437) NEUTROPHILS ABSOLUTE COUNT 10.29 K/ L 1.78-5.38 H (BEAKER) (test code = 670) LYMPHOCYTES ABSOLUTE COUNT 0.62 K/ L 1.32-3.57 L (BEAKER) (test code = 414) MONOCYTES ABSOLUTE COUNT (BEAKER) 0.53 K/ L 0.30-0.82 (test code = 415) EOSINOPHILS ABSOLUTE COUNT 0.09 K/ L 0.04-0.54 (BEAKER) (test code = 416) BASOPHILS ABSOLUTE COUNT (BEAKER) 0.02 K/ L 0.01-0.08 (test code = 417) IMMATURE GRANULOCYTES-RELATIVE 2 % 0-1 H PERCENT (BEAKER) (test code = 2801) POCT-GLUCOSE [id number] 13:31:00 Test Item Value Reference Range Interpretation Comments POC-GLUCOSE METER 92 mg/dL 70-110 : TESTED A T [facility] 6720 (BEAKER) (test code = [place], 1538) [address]: Stock Driver/Techni won ID = [id number] for LEVY MINER BASIC METABOLIC [id number] 12:31:00 Test Item Value Reference Range Interpretation Comments SODIUM (BEAKER) 137 meq/L 136-145 (test code = 381) POTASSIUM (BEAKER) 3.8 meq/L 3.5-5.1 (test code = 379) CHLORIDE (BEAKER) 103 meq/L 98-107 (test code = 382) CO2 (BEAKER) (test 27 meq/L 22-29 code = 355) BLOOD UREA NITROGEN 16 mg/dL 7-21 (BEAKER) (test code = 354) CREATININE (BEAKER) 1.52 mg/dL 0.57-1.25 H (test code = 358) GLUCOSE RANDOM 109 mg/dL 70-105 H (BEAKER) (test code = 652) CALCIUM (BEAKER) 9.0 mg/dL 8.4-10.2 (test code = 697) EGFR (BEAKER) (test 61 mL/min/1.73 ESTIMA ARI GFR IS code = 1092) sq m NOT ACCURATE CREATININE CLEARANCE IN PREDICTING GLOMERULAR FILTRATION RATE . ESTIMATED GFR I S NOT APPLICABLE FOR DIALYSIS PATIEN TS. Stock Driver ID - [id number] 12:31:00 Test Item Value Reference Range Interpretation Comments MAGNESIUM (BEAKER) (test code = 2.0 mg/dL 1.6-2.6 627) Stock Driver ID - [id number] 12:31:00 Test Item Value Reference Range Interpretation Comments PHOSPHORUS (BEAKER) (test code = 2.0 mg/dL 2.3-4.7 L 604) Stock Driver ID - EMERSONCALCIUM, [id number] 12:07:00 Test Item Value Reference Range Interpretation Comments CALCIUM IONIZED (BEAKER) (test 1.22 mmol/L 1.12-1.27 code = 698) PH, BLOOD (BEAKER) (test code = 7.50 1810) RAD, CHEST, 1 VIEW, NON [id number] 09:54:00Reason for exam:- >intubatedShould this be performed at the bedside?->Yes [facility] : 1975 Sex: MFINAL REPORT CLINICAL HISTORY: intubated TECHNIQUE: 1 view of the [address] COMPARISON: 01/24/2021 IMPRESSION: The supporting lines and tubes are similar appearing. Bilateral airspace opacities and a left pleural effusion are grossly unchanged. The cardiomediastinal silhouette is magnified by technique with sternotomy wires. Signed: Melodie Zarateort Verified Date/Time: 01/25/2021 09:54:23 Reading Location: [facility] Reading Room POCT- GLUCOSE [id number] 08:19:00 Test Item Value Reference Range Interpretation Comments POC-GLUCOSE METER 106 mg/dL 70-110 : TESTED A T [facility] 6720 (BEAKER) (test code = [place], 1538) [address]: Stock Driver/Techni won ID = [id number] for LISA SWENSONYohan LEVY CALCIUM, [id number] 04:51:00 Test Item Value Reference Range Interpretation Comments CALCIUM IONIZED (BEAKER) (test 1.20 mmol/L 1.12-1.27 code = 698) PH, BLOOD (BEAKER) (test code = 7.44 1810) BLOOD GAS, [id number] 04:50:00 Test Item Value Reference Range Interpretation Comments PH ARTERIAL (BEAKER) (test code = 7.44 7.35-7.45 383) PCO2 ARTERIAL (BEAKER) (test code 43 mm Hg 35-45 = 384) PO2 ARTERIAL (BEAKER) (test code = 160 mm Hg 80-90 H 385) O2 SATURATION ARTERIAL (BEAKER) 99.1 % 96.0-97.0 H (test code = 386) HCO3 ARTERIAL (BEAKER) (test code 28 mmol/L 21-29 = 388) BASE EXCESS ARTERIAL (BEAKER) 3.6 mmol/L -2.0-3.0 H (test code = 387) PATIENT TEMPERATURE (BEAKER) (test 37.0 code = 1818) FIO2 (BEAKER) (test code = 1819) 40.0 OXYGEN SATURATION, [id number] 04:48:00 Test Item Value Reference Range Interpretation Comments O2 SATURATION (MEASURED) (BEAKER) 96.3 % (test code = 1455) [id number] 04:39:00 Test Item Value Reference Range Interpretation Comments PHOSPHORUS (BEAKER) (test code = 2.1 mg/dL 2.3-4.7 L 604) Stock Driver ID - KENNETH WBASIC METABOLIC [id number] 04:39:00 Test Item Value Reference Range Interpretation Comments SODIUM (BEAKER) 137 meq/L 136-145 (test code = 381) POTASSIUM (BEAKER) 4.1 meq/L 3.5-5.1 (test code = 379) CHLORIDE (BEAKER) 104 meq/L 98-107 (test code = 382) CO2 (BEAKER) (test 26 meq/L 22-29 code = 355) BLOOD UREA NITROGEN 16 mg/dL 7-21 (BEAKER) (test code = 354) CREATININE (BEAKER) 1.47 mg/dL 0.57-1.25 H (test code = 358) GLUCOSE RANDOM 97 mg/dL 70-105 (BEAKER) (test code = 652) CALCIUM (BEAKER) 8.8 mg/dL 8.4-10.2 (test code = 697) EGFR (BEAKER) (test 63 mL/min/1.73 ESTIMA ARI GFR IS code = 1092) sq m NOT ACCURATE CREATININE CLEARANCE IN PREDICTING GLOMERULAR FILTRATION RATE . ESTIMATED GFR I S NOT APPLICABLE FOR DIALYSIS PATIEN TS. Stock Driver ID - KENNETH [id number] 04:39:00 Test Item Value Reference Range Interpretation Comments MAGNESIUM (BEAKER) (test code = 2.0 mg/dL 1.6-2.6 627) Stock Driver ID - KENNETH WLACTIC ACID, [id number] 04:30:00 Test Item Value Reference Range Interpretation Comments LACTATE BLOOD ARTERIAL (2) 0.7 mmol/L 0.5-2.2 (BEAKER) (test code = 2874) Stock Driver ID - LINA [id number] 04:26:00 Test Item Value Reference Range Interpretation Comments PARTIAL THROMBOPLASTIN TIME 35.4 seconds 22.5-36.0 (BEAKER) (test code = 760) PROTHROMBIN TIME/[id number] 04:25:00 Test Item Value Reference Range Interpretation Comments PROTIME (BEAKER) 16.3 seconds 11.9-14.2 H (test code = 759) INR (BEAKER) (test 1.34 See_Comment [Automat ed message] code = 370) The system [employer] generated this result transmitted ref erence range: <=5.90. The reference range was not used to int erpret this result as normal/abnormal . RECOMMENDED COUMADIN/WARFARIN INR THERAPY RANGESSTANDARD DOSE: 2.0 - 3.0 Includes: PROPHYLAXIS forvenous thrombosis, systemic embolization; TREATMENT for venous thrombosis and/or pulmonary embolus.HIGH RISK: Target INR is 2.5-3.5 for patients with mechanical heart valves.CBC W/PLT COUNT & AUTO DIFFERENTIAL 2021-01-25 04:24:00 Test Item Value Reference Range Interpretation Comments WHITE BLOOD CELL COUNT (BEAKER) 12.4 K/ L 3.5-10.5 H (test code = 775) RED BLOOD CELL COUNT (BEAKER) 2.56 M/ L 4.63-6.08 L (test code = 761) HEMOGLOBIN (BEAKER) (test code = 7.5 GM/DL 13.7-17.5 L 410) HEMATOCRIT (BEAKER) (test code = 23.1 % 40.1-51.0 L 411) MEAN CORPUSCULAR VOLUME (BEAKER) 90.2 fL 79.0-92.2 (test code = 753) MEAN CORPUSCULAR HEMOGLOBIN 29.3 pg 25.7-32.2 (BEAKER) (test code = 751) MEAN CORPUSCULAR HEMOGLOBIN CONC 32.5 GM/DL 32.3-36.5 (BEAKER) (test code = 752) RED CELL DISTRIBUTION WIDTH 17.5 % 11.6-14.4 H (BEAKER) (test code = 412) PLATELET COUNT (BEAKER) (test code 95 K/CU MM 150-450 L = 756) MEAN PLATELET VOLUME (BEAKER) 10.6 fL 9.4-12.4 (test code = 754) NUCLEATED RED BLOOD CELLS (BEAKER) 1 /100 WBC 0-0 H (test code = 413) NEUTROPHILS RELATIVE PERCENT 88 % (BEAKER) (test code = 429) LYMPHOCYTES RELATIVE PERCENT 4 % (BEAKER) (test code = 430) MONOCYTES RELATIVE PERCENT 6 % (BEAKER) (test code = 431) EOSINOPHILS RELATIVE PERCENT 1 % (BEAKER) (test code = 432) BASOPHILS RELATIVE PERCENT 0 % (BEAKER) (test code = 437) NEUTROPHILS ABSOLUTE COUNT 10.94 K/ L 1.78-5.38 H (BEAKER) (test code = 670) LYMPHOCYTES ABSOLUTE COUNT 0.55 K/ L 1.32-3.57 L (BEAKER) (test code = 414) MONOCYTES ABSOLUTE COUNT (BEAKER) 0.68 K/ L 0.30-0.82 (test code = 415) EOSINOPHILS ABSOLUTE COUNT 0.07 K/ L 0.04-0.54 (BEAKER) (test code = 416) BASOPHILS ABSOLUTE COUNT (BEAKER) 0.01 K/ L 0.01-0.08 (test code = 417) IMMATURE GRANULOCYTES-RELATIVE 1 % 0-1 PERCENT (BEAKER) (test code = 2801) POCT-GLUCOSE [id number] 00:25:00 Test Item Value Reference Range Interpretation Comments POC-GLUCOSE METER 87 mg/dL 70-110 : TESTED A T [facility] 6720 (BEAKER) (test code = NORM PARDO, 1538) [address]: Stock Driver/Techni won ID = [id number] for JAYLA DOWNEY Prepare [id number] 23:55:00 Test Item Value Reference Range Interpretation Comments Unit ABO (test code = 5098117) A Pos UNIT NUMBER (test code = [id number] 934-0) Status (test code = 5168699) TX_TIMEINCHART Blood Bank Product (test code FFP = 2263) PRODUCT CODE (test code = [id number] 933-2) [facility] [id number] 23:55:00 Test Item Value Reference Range Interpretation Comments Unit ABO (test code = 2372936) O Neg UNIT NUMBER (test code = [id number] 934-0) Status (test code = 5455444) TX_TIMEINCHART Blood Bank Product (test code PLATELETS = 2263) PRODUCT CODE (test code = [id number] 933-2) [facility] Leuko-Red [id number] 23:55:00 Test Item Value Reference Range Interpretation Comments Unit ABO (test code = 5270904) O Neg UNIT NUMBER (test code = [id number] 934-0) Status (test code = 6882294) TX_TIMEINCHART Blood Bank Product (test code PLATELETS = 2263) PRODUCT CODE (test code = H8767V97 933-2) [facility] [id number] 23:55:00 Test Item Value Reference Range Interpretation Comments Unit ABO (test code = 3712724) A Pos UNIT NUMBER (test code = [id number] 934-0) Status (test code = 4464497) TX_TIMEINCHART Blood Bank Product (test code FFP = 2263) PRODUCT CODE (test code = P4935T78 933-2) [facility] [id number] 23:55:00 Test Item Value Reference Range Interpretation Comments Unit ABO (test code = 6000323) O Neg UNIT NUMBER (test code = [id number] 934-0) Status (test code = 1657759) TX_TIMEINCHART Blood Bank Product (test code PLATELETS = 2263) PRODUCT CODE (test code = G9772Z44 933-2) [facility] Leuko-Red [id number] 23:55:00 Test Item Value Reference Range Interpretation Comments Unit ABO (test code = 1386414) O Neg UNIT NUMBER (test code = [id number] 934-0) Status (test code = 3692643) TX_TIMEINCHART Blood Bank Product (test code PLATELETS = 2263) PRODUCT CODE (test code = J1697V03 933-2) [facility] [id number] 23:55:00 Test Item Value Reference Range Interpretation Comments Unit ABO (test code = 4870831) A Pos UNIT NUMBER (test code = [id number] 934-0) Status (test code = 8578451) TX_TIMEINCHART Blood Bank Product (test code FFP = 2263) PRODUCT CODE (test code = O8609X40 933-2) [facility] [id number] 23:55:00 Test Item Value Reference Range Interpretation Comments Unit ABO (test code = 5348535) O Neg UNIT NUMBER (test code = [id number] 934-0) Status (test code = 8355020) TX_TIMEINCHART Blood Bank Product (test code PLATELETS = 2263) PRODUCT CODE (test code = Y7539I26 933-2) [facility] [id number] 23:55:00 Test Item Value Reference Range Interpretation Comments Unit ABO (test code = 7929251) O Neg UNIT NUMBER (test code = [id number] 934-0) Status (test code = 6049633) TX_TIMEINCHART Blood Bank Product (test code PLATELETS = 2263) PRODUCT CODE (test code = S3502W54 933-2) [facility] [id number] 22:10:00 Test Item Value Reference Range Interpretation Comments SODIUM (BEAKER) (test code = 381) 134 meq/L 136-145 L GLUCOSE-STAT [id number] 22:10:00 Test Item Value Reference Range Interpretation Comments GLUCOSE RANDOM (BEAKER) (test code 115 mg/dL 70-110 H = 652) HGB/HCT (H&H) - STAT [id number] 22:10:00 Test Item Value Reference Range Interpretation Comments HEMOGLOBIN (BEAKER) (test code = 7.6 GM/DL 13.0-16.8 L 410) HEMATOCRIT (BEAKER) (test code = 22.0 % 40.0-50.0 L 411) BLOOD GAS, [id number] 22:10:00 Test Item Value Reference Range Interpretation Comments PH ARTERIAL (BEAKER) (test code = 7.44 7.35-7.45 383) PCO2 ARTERIAL (BEAKER) (test code 43 mm Hg 35-45 = 384) PO2 ARTERIAL (BEAKER) (test code = 181 mm Hg 80-90 H 385) O2 SATURATION ARTERIAL (BEAKER) 99.3 % 96.0-97.0 H (test code = 386) HCO3 ARTERIAL (BEAKER) (test code 28 mmol/L 21-29 = 388) BASE EXCESS ARTERIAL (BEAKER) 3.9 mmol/L -2.0-3.0 H (test code = 387) PATIENT TEMPERATURE (BEAKER) (test 37.0 code = 1818) FIO2 (BEAKER) (test code = 1819) 40.0 POTASSIUM-STAT [id number] 22:07:00 Test Item Value Reference Range Interpretation Comments POTASSIUM (BEAKER) (test code = 3.8 meq/L 3.6-5.5 379) BASIC METABOLIC [id number] 18:50:00 Test Item Value Reference Range Interpretation Comments SODIUM (BEAKER) 136 meq/L 136-145 (test code = 381) POTASSIUM (BEAKER) 4.3 meq/L 3.5-5.1 (test code = 379) CHLORIDE (BEAKER) 103 meq/L 98-107 (test code = 382) CO2 (BEAKER) (test 26 meq/L 22-29 code = 355) BLOOD UREA NITROGEN 16 mg/dL 7-21 (BEAKER) (test code = 354) CREATININE (BEAKER) 1.60 mg/dL 0.57-1.25 H (test code = 358) GLUCOSE RANDOM 99 mg/dL 70-105 (BEAKER) (test code = 652) CALCIUM (BEAKER) 8.8 mg/dL 8.4-10.2 (test code = 697) EGFR (BEAKER) (test 57 mL/min/1.73 ESTIMA ARI GFR IS code = 1092) sq m NOT ACCURATE CREATININE CLEARANCE IN PREDICTING GLOMERULAR FILTRATION RATE . ESTIMATED GFR I S NOT APPLICABLE FOR DIALYSIS PATIEN TS. Stock Driver ID - [id number] 18:50:00 Test Item Value Reference Range Interpretation Comments MAGNESIUM (BEAKER) (test code = 2.2 mg/dL 1.6-2.6 627) Stock Driver ID - [id number] 18:50:00 Test Item Value Reference Range Interpretation Comments PHOSPHORUS (BEAKER) (test code = 3.1 mg/dL 2.3-4.7 604) Stock Driver ID - CDPPOCT-GLUCOSE [id number] 13:09:00 Test Item Value Reference Range Interpretation Comments POC-GLUCOSE METER 101 mg/dL 70-110 : TESTED A T [facility] 6720 (BEAKER) (test code = NORM SHULTZ [place], 1538) [address]: Stock Driver/Techni won ID = [id number] for KISHORE VELASQUEZ CBC W/PLT COUNT & AUTO [id number] 12:45:00 Test Item Value Reference Range Interpretation Comments WHITE BLOOD CELL COUNT (BEAKER) 15.8 K/ L 3.5-10.5 H (test code = 775) RED BLOOD CELL COUNT (BEAKER) 2.62 M/ L 4.63-6.08 L (test code = 761) HEMOGLOBIN (BEAKER) (test code = 7.7 GM/DL 13.7-17.5 L 410) HEMATOCRIT (BEAKER) (test code = 23.5 % 40.1-51.0 L 411) MEAN CORPUSCULAR VOLUME (BEAKER) 89.7 fL 79.0-92.2 (test code = 753) MEAN CORPUSCULAR HEMOGLOBIN 29.4 pg 25.7-32.2 (BEAKER) (test code = 751) MEAN CORPUSCULAR HEMOGLOBIN CONC 32.8 GM/DL 32.3-36.5 (BEAKER) (test code = 752) RED CELL DISTRIBUTION WIDTH 17.1 % 11.6-14.4 H (BEAKER) (test code = 412) PLATELET COUNT (BEAKER) (test 100 K/CU MM 150-450 L code = 756) MEAN PLATELET VOLUME (BEAKER) 10.3 fL 9.4-12.4 (test code = 754) NUCLEATED RED BLOOD CELLS 1 /100 WBC 0-0 H (BEAKER) (test code = 413) NEUTROPHILS RELATIVE PERCENT 91 % (BEAKER) (test code = 429) LYMPHOCYTES RELATIVE PERCENT 3 % (BEAKER) (test code = 430) MONOCYTES RELATIVE PERCENT 5 % (BEAKER) (test code = 431) EOSINOPHILS RELATIVE PERCENT 0 % (BEAKER) (test code = 432) BASOPHILS RELATIVE PERCENT 0 % (BEAKER) (test code = 437) NEUTROPHILS ABSOLUTE COUNT 14.31 K/ L 1.78-5.38 H (BEAKER) (test code = 670) LYMPHOCYTES ABSOLUTE COUNT 0.47 K/ L 1.32-3.57 L (BEAKER) (test code = 414) MONOCYTES ABSOLUTE COUNT (BEAKER) 0.77 K/ L 0.30-0.82 (test code = 415) EOSINOPHILS ABSOLUTE COUNT 0.00 K/ L 0.04-0.54 L (BEAKER) (test code = 416) BASOPHILS ABSOLUTE COUNT (BEAKER) 0.02 K/ L 0.01-0.08 (test code = 417) IMMATURE GRANULOCYTES-RELATIVE 2 % 0-1 H PERCENT (BEAKER) (test code = 2801) [id number] 12:38:00 Test Item Value Reference Range Interpretation Comments MAGNESIUM (BEAKER) (test code = 2.0 mg/dL 1.6-2.6 627) Stock Driver ID - LINA [id number] 12:38:00 Test Item Value Reference Range Interpretation Comments PHOSPHORUS (BEAKER) (test code = 3.5 mg/dL 2.3-4.7 604) Stock Driver ID - LINA [id number] 12:38:00 Test Item Value Reference Range Interpretation Comments POTASSIUM (BEAKER) (test code = 4.4 meq/L 3.5-5.1 379) Stock Driver ID - LINA LHEPATIC FUNCTION [id number] 10:44:00 Test Item Value Reference Range Interpretation Comments TOTAL PROTEIN (BEAKER) (test code = 5.0 gm/dL 6.0-8.3 L 770) ALBUMIN (BEAKER) (test code = 1145) 2.4 g/dL 3.5-5.0 L BILIRUBIN TOTAL (BEAKER) (test code 0.6 mg/dL 0.2-1.2 = 377) BILIRUBIN DIRECT (BEAKER) (test 0.5 mg/dL 0.1-0.5 code = 706) ALKALINE PHOSPHATASE (BEAKER) (test 82 U/L 40-150 code = 346) AST (SGOT) (BEAKER) (test code = 512 U/L 5-34 H 353) ALT (SGPT) (BEAKER) (test code = 427 U/L 6-55 H 347) Stock Driver ID - LINA LBLOOD GAS, [id number] 10:40:00 Test Item Value Reference Range Interpretation Comments PH ARTERIAL (BEAKER) (test code = 7.44 7.35-7.45 383) PCO2 ARTERIAL (BEAKER) (test code 43 mm Hg 35-45 = 384) PO2 ARTERIAL (BEAKER) (test code = 184 mm Hg 80-90 H 385) O2 SATURATION ARTERIAL (BEAKER) 99.3 % 96.0-97.0 H (test code = 386) HCO3 ARTERIAL (BEAKER) (test code 28 mmol/L 21-29 = 388) BASE EXCESS ARTERIAL (BEAKER) 3.7 mmol/L -2.0-3.0 H (test code = 387) PATIENT TEMPERATURE (BEAKER) (test 36.5 code = 1818) FIO2 (BEAKER) (test code = 1819) 40.0 RAD, CHEST, 1 VIEW, NON [id number] 08:49:00Reason for exam:- >intubatedShould this be performed at the bedside?->Yes [facility] : 1975 Sex: MFINAL REPORT CLINICAL HISTORY: intubated TECHNIQUE: 1 view of the [address] COMPARISON: 01/23/2021 IMPRESSION: The supporting lines and tubes are similar appearing. Bilateral airspace opacities are similar. A small pleural effusions unchanged. The cardiomediastinal silhouette is magnified by technique with sternotomy wires. Signed: Melodie Zarate MDReport Verified Date/Time: 01/24/2021 08:49:07 Reading Location: [facility] Reading Room BASIC METABOLIC [id number] 03:54:00 Test Item Value Reference Range Interpretation Comments SODIUM (BEAKER) 138 meq/L 136-145 (test code = 381) POTASSIUM (BEAKER) 4.1 meq/L 3.5-5.1 (test code = 379) CHLORIDE (BEAKER) 105 meq/L 98-107 (test code = 382) CO2 (BEAKER) (test 27 meq/L 22-29 code = 355) BLOOD UREA NITROGEN 17 mg/dL 7-21 (BEAKER) (test code = 354) CREATININE (BEAKER) 1.62 mg/dL 0.57-1.25 H (test code = 358) GLUCOSE RANDOM 114 mg/dL 70-105 H (BEAKER) (test code = 652) CALCIUM (BEAKER) 8.7 mg/dL 8.4-10.2 (test code = 697) EGFR (BEAKER) (test 57 mL/min/1.73 ESTIMA ARI GFR IS code = 1092) sq m NOT ACCURATE CREATININE CLEARANCE IN PREDICTING GLOMERULAR FILTRATION RATE . ESTIMATED GFR I S NOT APPLICABLE FOR DIALYSIS PATIEN TS. Stock Driver ID - VALDEZ [id number] 03:54:00 Test Item Value Reference Range Interpretation Comments MAGNESIUM (BEAKER) (test code = 2.2 mg/dL 1.6-2.6 627) Stock Driver ID - VALDEZ [id number] 03:54:00 Test Item Value Reference Range Interpretation Comments PHOSPHORUS (BEAKER) (test code = 2.8 mg/dL 2.3-4.7 604) Stock Driver ID - VALDEZ [id number] 03:49:00 Test Item Value Reference Range Interpretation Comments PARTIAL THROMBOPLASTIN TIME 36.8 seconds 22.5-36.0 H (BEAKER) (test code = 760) PROTHROMBIN TIME/ 03:48:00 Test Item Value Reference Range Interpretation Comments PROTIME (BEAKER) 18.6 seconds 11.9-14.2 H (test code = 759) INR (BEAKER) (test 1.57 See_Comment [Automat ed message] code = 370) The system [employer] generated this result transmitted ref erence range: <=5.90. The reference range was not used to int erpret this result as normal/abnormal . RECOMMENDED COUMADIN/WARFARIN INR THERAPY RANGESSTANDARD DOSE: 2.0 - 3.0 Includes: PROPHYLAXIS forvenous thrombosis, systemic embolization; TREATMENT for venous thrombosis and/or pulmonary embolus.HIGH RISK: Target INR is 2.5-3.5 for patients with mechanical heart valves.CBC W/PLT COUNT & AUTO DIFFERENTIAL 2021-01-24 03:40:00 Test Item Value Reference Range Interpretation Comments WHITE BLOOD CELL COUNT (BEAKER) 13.4 K/ L 3.5-10.5 H (test code = 775) RED BLOOD CELL COUNT (BEAKER) 2.63 M/ L 4.63-6.08 L (test code = 761) HEMOGLOBIN (BEAKER) (test code = 7.7 GM/DL 13.7-17.5 L 410) HEMATOCRIT (BEAKER) (test code = 22.7 % 40.1-51.0 L 411) MEAN CORPUSCULAR VOLUME (BEAKER) 86.3 fL 79.0-92.2 (test code = 753) MEAN CORPUSCULAR HEMOGLOBIN 29.3 pg 25.7-32.2 (BEAKER) (test code = 751) MEAN CORPUSCULAR HEMOGLOBIN CONC 33.9 GM/DL 32.3-36.5 (BEAKER) (test code = 752) RED CELL DISTRIBUTION WIDTH 16.6 % 11.6-14.4 H (BEAKER) (test code = 412) PLATELET COUNT (BEAKER) (test code 92 K/CU MM 150-450 L = 756) MEAN PLATELET VOLUME (BEAKER) 9.7 fL 9.4-12.4 (test code = 754) NUCLEATED RED BLOOD CELLS (BEAKER) 1 /100 WBC 0-0 H (test code = 413) NEUTROPHILS RELATIVE PERCENT 90 % (BEAKER) (test code = 429) LYMPHOCYTES RELATIVE PERCENT 4 % (BEAKER) (test code = 430) MONOCYTES RELATIVE PERCENT 5 % (BEAKER) (test code = 431) EOSINOPHILS RELATIVE PERCENT 0 % (BEAKER) (test code = 432) BASOPHILS RELATIVE PERCENT 0 % (BEAKER) (test code = 437) NEUTROPHILS ABSOLUTE COUNT 12.05 K/ L 1.78-5.38 H (BEAKER) (test code = 670) LYMPHOCYTES ABSOLUTE COUNT 0.47 K/ L 1.32-3.57 L (BEAKER) (test code = 414) MONOCYTES ABSOLUTE COUNT (BEAKER) 0.64 K/ L 0.30-0.82 (test code = 415) EOSINOPHILS ABSOLUTE COUNT 0.00 K/ L 0.04-0.54 L (BEAKER) (test code = 416) BASOPHILS ABSOLUTE COUNT (BEAKER) 0.01 K/ L 0.01-0.08 (test code = 417) IMMATURE GRANULOCYTES-RELATIVE 2 % 0-1 H PERCENT (BEAKER) (test code = 2801) LACTIC ACID, [id number] 03:37:00 Test Item Value Reference Range Interpretation Comments LACTATE BLOOD ARTERIAL (2) 1.4 mmol/L 0.5-2.2 (BEAKER) (test code = 2874) Stock Driver ID - VALDEZ MBLOOD GAS, [id number] 03:26:00 Test Item Value Reference Range Interpretation Comments PH ARTERIAL (BEAKER) (test code = 7.49 7.35-7.45 H 383) PCO2 ARTERIAL (BEAKER) (test code 36 mm Hg 35-45 = 384) PO2 ARTERIAL (BEAKER) (test code = 183 mm Hg 80-90 H 385) O2 SATURATION ARTERIAL (BEAKER) 99.4 % 96.0-97.0 H (test code = 386) HCO3 ARTERIAL (BEAKER) (test code 27 mmol/L 21-29 = 388) BASE EXCESS ARTERIAL (BEAKER) 3.3 mmol/L -2.0-3.0 H (test code = 387) PATIENT TEMPERATURE (BEAKER) (test 36.3 code = 1818) FIO2 (BEAKER) (test code = 1819) 40.0 CALCIUM, [id number] 03:24:00 Test Item Value Reference Range Interpretation Comments CALCIUM IONIZED (BEAKER) (test 1.20 mmol/L 1.12-1.27 code = 698) PH, BLOOD (BEAKER) (test code = 7.48 1810) OXYGEN SATURATION, [id number] 03:23:00 Test Item Value Reference Range Interpretation Comments O2 SATURATION (MEASURED) (BEAKER) 64.1 % (test code = 1455) CBC W/PLT COUNT & AUTO [id number] 01:33:00 Test Item Value Reference Range Interpretation Comments WHITE BLOOD CELL COUNT (BEAKER) 13.3 K/ L 3.5-10.5 H (test code = 775) RED BLOOD CELL COUNT (BEAKER) 2.70 M/ L 4.63-6.08 L (test code = 761) HEMOGLOBIN (BEAKER) (test code = 7.8 GM/DL 13.7-17.5 L 410) HEMATOCRIT (BEAKER) (test code = 23.4 % 40.1-51.0 L 411) MEAN CORPUSCULAR VOLUME (BEAKER) 86.7 fL 79.0-92.2 (test code = 753) MEAN CORPUSCULAR HEMOGLOBIN 28.9 pg 25.7-32.2 (BEAKER) (test code = 751) MEAN CORPUSCULAR HEMOGLOBIN CONC 33.3 GM/DL 32.3-36.5 (BEAKER) (test code = 752) RED CELL DISTRIBUTION WIDTH 16.3 % 11.6-14.4 H (BEAKER) (test code = 412) PLATELET COUNT (BEAKER) (test code 99 K/CU MM 150-450 L = 756) MEAN PLATELET VOLUME (BEAKER) 10.8 fL 9.4-12.4 (test code = 754) NUCLEATED RED BLOOD CELLS (BEAKER) 1 /100 WBC 0-0 H (test code = 413) NEUTROPHILS RELATIVE PERCENT 89 % (BEAKER) (test code = 429) LYMPHOCYTES RELATIVE PERCENT 4 % (BEAKER) (test code = 430) MONOCYTES RELATIVE PERCENT 5 % (BEAKER) (test code = 431) EOSINOPHILS RELATIVE PERCENT 0 % (BEAKER) (test code = 432) BASOPHILS RELATIVE PERCENT 0 % (BEAKER) (test code = 437) NEUTROPHILS ABSOLUTE COUNT 11.85 K/ L 1.78-5.38 H (BEAKER) (test code = 670) LYMPHOCYTES ABSOLUTE COUNT 0.53 K/ L 1.32-3.57 L (BEAKER) (test code = 414) MONOCYTES ABSOLUTE COUNT (BEAKER) 0.61 K/ L 0.30-0.82 (test code = 415) EOSINOPHILS ABSOLUTE COUNT 0.00 K/ L 0.04-0.54 L (BEAKER) (test code = 416) BASOPHILS ABSOLUTE COUNT (BEAKER) 0.02 K/ L 0.01-0.08 (test code = 417) IMMATURE GRANULOCYTES-RELATIVE 2 % 0-1 H PERCENT (BEAKER) (test code = 2801) LACTIC ACID, [id number] 00:48:00 Test Item Value Reference Range Interpretation Comments LACTATE BLOOD ARTERIAL (2) 1.4 mmol/L 0.5-2.2 (BEAKER) (test code = 2874) Stock Driver ID - LINA LBLOOD GAS, [id number] 00:37:00 Test Item Value Reference Range Interpretation Comments PH ARTERIAL (BEAKER) (test code = 7.57 7.35-7.45 H 383) PCO2 ARTERIAL (BEAKER) (test code 30 mm Hg 35-45 L = 384) PO2 ARTERIAL (BEAKER) (test code = 191 mm Hg 80-90 H 385) O2 SATURATION ARTERIAL (BEAKER) 99.5 % 96.0-97.0 H (test code = 386) HCO3 ARTERIAL (BEAKER) (test code 27 mmol/L 21-29 = 388) BASE EXCESS ARTERIAL (BEAKER) 4.2 mmol/L -2.0-3.0 H (test code = 387) PATIENT TEMPERATURE (BEAKER) (test 36.3 code = 1818) FIO2 (BEAKER) (test code = 1819) 40.0 POCT-GLUCOSE [id number] 23:22:00 Test Item Value Reference Range Interpretation Comments POC-GLUCOSE METER 102 mg/dL 70-110 : TESTED A T [facility] 6720 (BEAKER) (test code = NORM SHULT[place], 1538) [address]: Stock Driver/Techni won ID = [id number] for ARI MAYER [id number] 22:00:00 Test Item Value Reference Range Interpretation Comments MAGNESIUM (BEAKER) 2.1 mg/dL 1.6-2.6 Specimen slightly (test code = 627) hemolyzed Stock Driver ID - [id number] 22:00:00 Test Item Value Reference Range Interpretation Comments PHOSPHORUS (BEAKER) 3.0 mg/dL 2.3-4.7 Specimen slightly (test code = 604) hemolyzed Stock Driver ID - DBBASIC METABOLIC [id number] 22:00:00 Test Item Value Reference Range Interpretation Comments SODIUM (BEAKER) 138 meq/L 136-145 (test code = 381) POTASSIUM (BEAKER) 4.1 meq/L 3.5-5.1 Specimen slightly (test code = 379) hemolyzed CHLORIDE (BEAKER) 105 meq/L 98-107 (test code = 382) CO2 (BEAKER) (test 23 meq/L 22-29 code = 355) BLOOD UREA NITROGEN 21 mg/dL 7-21 (BEAKER) (test code = 354) CREATININE (BEAKER) 1.91 mg/dL 0.57-1.25 H Specimen slightly (test code = 358) hemolyzed GLUCOSE RANDOM 114 mg/dL 70-105 H (BEAKER) (test code = 652) CALCIUM (BEAKER) 8.6 mg/dL 8.4-10.2 (test code = 697) EGFR (BEAKER) (test 47 mL/min/1.73 ESTIMA ARI GFR IS code = 1092) sq m NOT ACCURATE CREATININE CLEARANCE IN PREDICTING GLOMERULAR FILTRATION RATE . ESTIMATED GFR I S NOT APPLICABLE FOR DIALYSIS PATIEN TS. Stock Driver ID - DBCBC W/PLT COUNT & AUTO [id number] 21:49:00 Test Item Value Reference Range Interpretation Comments WHITE BLOOD CELL COUNT (BEAKER) 13.8 K/ L 3.5-10.5 H (test code = 775) RED BLOOD CELL COUNT (BEAKER) 2.36 M/ L 4.63-6.08 L (test code = 761) HEMOGLOBIN (BEAKER) (test code = 6.9 GM/DL 13.7-17.5 L 410) HEMATOCRIT (BEAKER) (test code = 20.7 % 40.1-51.0 L 411) MEAN CORPUSCULAR VOLUME (BEAKER) 87.7 fL 79.0-92.2 (test code = 753) MEAN CORPUSCULAR HEMOGLOBIN 29.2 pg 25.7-32.2 (BEAKER) (test code = 751) MEAN CORPUSCULAR HEMOGLOBIN CONC 33.3 GM/DL 32.3-36.5 (BEAKER) (test code = 752) RED CELL DISTRIBUTION WIDTH 17.1 % 11.6-14.4 H (BEAKER) (test code = 412) PLATELET COUNT (BEAKER) (test 118 K/CU MM 150-450 L code = 756) MEAN PLATELET VOLUME (BEAKER) 10.7 fL 9.4-12.4 (test code = 754) NUCLEATED RED BLOOD CELLS 1 /100 WBC 0-0 H (BEAKER) (test code = 413) NEUTROPHILS RELATIVE PERCENT 88 % (BEAKER) (test code = 429) LYMPHOCYTES RELATIVE PERCENT 4 % (BEAKER) (test code = 430) MONOCYTES RELATIVE PERCENT 6 % (BEAKER) (test code = 431) EOSINOPHILS RELATIVE PERCENT 0 % (BEAKER) (test code = 432) BASOPHILS RELATIVE PERCENT 0 % (BEAKER) (test code = 437) NEUTROPHILS ABSOLUTE COUNT 12.13 K/ L 1.78-5.38 H (BEAKER) (test code = 670) LYMPHOCYTES ABSOLUTE COUNT 0.54 K/ L 1.32-3.57 L (BEAKER) (test code = 414) MONOCYTES ABSOLUTE COUNT (BEAKER) 0.78 K/ L 0.30-0.82 (test code = 415) EOSINOPHILS ABSOLUTE COUNT 0.01 K/ L 0.04-0.54 L (BEAKER) (test code = 416) BASOPHILS ABSOLUTE COUNT (BEAKER) 0.02 K/ L 0.01-0.08 (test code = 417) IMMATURE GRANULOCYTES-RELATIVE 2 % 0-1 H PERCENT (BEAKER) (test code = 2801) [id number] 21:45:00 Test Item Value Reference Range Interpretation Comments Fibrinogen (test code = 3255-7) 253 mg/dl 225-434 Lab Interpretation (test code = Normal 76954-6) [facility] Test Item Value Reference Range Interpretation Comments Fibrinogen (test code = 3255-7) 253 mg/dl 225-434 Lab Interpretation (test code = Normal 65498-3) [facility] 21:45:00 Test Item Value Reference Range Interpretation Comments Fibrinogen (test code = 3255-7) 253 mg/dl 225-434 Lab Interpretation (test code = Normal 09131-6) [facility] Test Item Value Reference Range Interpretation Comments FIBRINOGEN LEVEL (BEAKER) (test 253 mg/dl 225-434 code = 658) [id number] 21:45:00 Test Item Value Reference Range Interpretation Comments PARTIAL THROMBOPLASTIN TIME 37.3 seconds 22.5-36.0 H (BEAKER) (test code = 760) PROTHROMBIN TIME/[id number] 21:44:00 Test Item Value Reference Range Interpretation Comments PROTIME (BEAKER) 19.4 seconds 11.9-14.2 H (test code = 759) INR (BEAKER) (test 1.66 See_Comment [Automat ed message] code = 370) The system [employer] generated this result transmitted ref erence range: <=5.90. The reference range was not used to int erpret this result as normal/abnormal . RECOMMENDED COUMADIN/WARFARIN INR THERAPY RANGESSTANDARD DOSE: 2.0 - 3.0 Includes: PROPHYLAXIS forvenous thrombosis, systemic embolization; TREATMENT for venous thrombosis and/or pulmonary embolus.HIGH RISK: Target INR is 2.5-3.5 for patients with mechanical heart valves.CALCIUM, [id number] 21:36:00 Test Item Value Reference Range Interpretation Comments CALCIUM IONIZED (BEAKER) (test 1.10 mmol/L 1.12-1.27 L code = 698) PH, BLOOD (BEAKER) (test code = 7.54 1810) BLOOD GAS, [id number] 21:36:00 Test Item Value Reference Range Interpretation Comments PH ARTERIAL (BEAKER) (test code = 7.55 7.35-7.45 H 383) PCO2 ARTERIAL (BEAKER) (test code 29 mm Hg 35-45 L = 384) PO2 ARTERIAL (BEAKER) (test code = 193 mm Hg 80-90 H 385) O2 SATURATION ARTERIAL (BEAKER) 99.5 % 96.0-97.0 H (test code = 386) HCO3 ARTERIAL (BEAKER) (test code 26 mmol/L 21-29 = 388) BASE EXCESS ARTERIAL (BEAKER) 3.9 mmol/L -2.0-3.0 H (test code = 387) PATIENT TEMPERATURE (BEAKER) (test 36.4 code = 1818) FIO2 (BEAKER) (test code = 1819) 40.0 POCT-GLUCOSE [id number] 18:58:00 Test Item Value Reference Range Interpretation Comments POC-GLUCOSE METER 84 mg/dL 70-110 : TESTED A T [facility] 6720 (BEAKER) (test code = [place], 1538) [address]484: Stock Driver/Techni won ID = [id number] for Mirna Tanner (contract) Tania lowery CBC W/PLT COUNT & AUTO [id number] 18:08:00 Test Item Value Reference Range Interpretation Comments WHITE BLOOD CELL COUNT (BEAKER) 14.5 K/ L 3.5-10.5 H (test code = 775) RED BLOOD CELL COUNT (BEAKER) 2.23 M/ L 4.63-6.08 L (test code = 761) HEMOGLOBIN (BEAKER) (test code = 6.4 GM/DL 13.7-17.5 L 410) HEMATOCRIT (BEAKER) (test code = 19.0 % 40.1-51.0 L 411) MEAN CORPUSCULAR VOLUME (BEAKER) 85.2 fL 79.0-92.2 (test code = 753) MEAN CORPUSCULAR HEMOGLOBIN 28.7 pg 25.7-32.2 (BEAKER) (test code = 751) MEAN CORPUSCULAR HEMOGLOBIN CONC 33.7 GM/DL 32.3-36.5 (BEAKER) (test code = 752) RED CELL DISTRIBUTION WIDTH 17.4 % 11.6-14.4 H (BEAKER) (test code = 412) PLATELET COUNT (BEAKER) (test 104 K/CU MM 150-450 L code = 756) MEAN PLATELET VOLUME (BEAKER) 10.3 fL 9.4-12.4 (test code = 754) NUCLEATED RED BLOOD CELLS 1 /100 WBC 0-0 H (BEAKER) (test code = 413) NEUTROPHILS RELATIVE PERCENT 84 % (BEAKER) (test code = 429) LYMPHOCYTES RELATIVE PERCENT 7 % (BEAKER) (test code = 430) MONOCYTES RELATIVE PERCENT 7 % (BEAKER) (test code = 431) EOSINOPHILS RELATIVE PERCENT 0 % (BEAKER) (test code = 432) BASOPHILS RELATIVE PERCENT 0 % (BEAKER) (test code = 437) NEUTROPHILS ABSOLUTE COUNT 12.13 K/ L 1.78-5.38 H (BEAKER) (test code = 670) LYMPHOCYTES ABSOLUTE COUNT 1.02 K/ L 1.32-3.57 L (BEAKER) (test code = 414) MONOCYTES ABSOLUTE COUNT (BEAKER) 0.98 K/ L 0.30-0.82 H (test code = 415) EOSINOPHILS ABSOLUTE COUNT 0.00 K/ L 0.04-0.54 L (BEAKER) (test code = 416) BASOPHILS ABSOLUTE COUNT (BEAKER) 0.03 K/ L 0.01-0.08 (test code = 417) IMMATURE GRANULOCYTES-RELATIVE 2 % 0-1 H PERCENT (BEAKER) (test code = 2801) OXYGEN SATURATION, [id number] 17:48:00 Test Item Value Reference Range Interpretation Comments O2 SATURATION (MEASURED) (BEAKER) 82.4 % (test code = 1455) CBC W/PLT COUNT & AUTO [id number] 17:46:00 Test Item Value Reference Range Interpretation Comments WHITE BLOOD CELL COUNT (BEAKER) 16.2 K/ L 3.5-10.5 H (test code = 775) RED BLOOD CELL COUNT (BEAKER) 2.32 M/ L 4.63-6.08 L (test code = 761) HEMOGLOBIN (BEAKER) (test code = 6.6 GM/DL 13.7-17.5 L 410) HEMATOCRIT (BEAKER) (test code = 20.3 % 40.1-51.0 L 411) MEAN CORPUSCULAR VOLUME (BEAKER) 87.5 fL 79.0-92.2 (test code = 753) MEAN CORPUSCULAR HEMOGLOBIN 28.4 pg 25.7-32.2 (BEAKER) (test code = 751) MEAN CORPUSCULAR HEMOGLOBIN CONC 32.5 GM/DL 32.3-36.5 (BEAKER) (test code = 752) RED CELL DISTRIBUTION WIDTH 17.4 % 11.6-14.4 H (BEAKER) (test code = 412) PLATELET COUNT (BEAKER) (test 128 K/CU MM 150-450 L code = 756) MEAN PLATELET VOLUME (BEAKER) 10.2 fL 9.4-12.4 (test code = 754) NUCLEATED RED BLOOD CELLS 1 /100 WBC 0-0 H (BEAKER) (test code = 413) NEUTROPHILS RELATIVE PERCENT 86 % (BEAKER) (test code = 429) LYMPHOCYTES RELATIVE PERCENT 5 % (BEAKER) (test code = 430) MONOCYTES RELATIVE PERCENT 6 % (BEAKER) (test code = 431) EOSINOPHILS RELATIVE PERCENT 0 % (BEAKER) (test code = 432) BASOPHILS RELATIVE PERCENT 0 % (BEAKER) (test code = 437) NEUTROPHILS ABSOLUTE COUNT 13.81 K/ L 1.78-5.38 H (BEAKER) (test code = 670) LYMPHOCYTES ABSOLUTE COUNT 0.75 K/ L 1.32-3.57 L (BEAKER) (test code = 414) MONOCYTES ABSOLUTE COUNT (BEAKER) 0.99 K/ L 0.30-0.82 H (test code = 415) EOSINOPHILS ABSOLUTE COUNT 0.01 K/ L 0.04-0.54 L (BEAKER) (test code = 416) BASOPHILS ABSOLUTE COUNT (BEAKER) 0.03 K/ L 0.01-0.08 (test code = 417) IMMATURE GRANULOCYTES-RELATIVE 3 % 0-1 H PERCENT (BEAKER) (test code = 2801) Comprehensive metabolic [id number] 16:31:00 Test Item Value Reference Range Interpretation Comments Protein, Total (test 5.2 See_Comment L [Autom ated code = 2885-2) message] The system which generated this result transmit ari reference range : 6.0 - 8.3 gm/dL . The reference range was not u sed to interpret th is result as normal/abnormal . Albumin (test code = 2.6 g/dL 3.5-5 L 78389-4) Alkaline Phosphatase 89 U/L 40-150 (test code = 6768-6) Total Bilirubin (test 0.8 mg/dL 0.2-1.2 code = 1974-2) Sodium (test code = 139 meq/L 839-727 2113-2) Potassium (test code 4.1 meq/L 3.5-5.1 = 2823-3) Chloride (test code = 105 meq/L 98-107 2074-0) CO2 (test code = 26 meq/L 22-29 2027-9) BUN (test code = 20 mg/dL 12-28 3094-0) Creatinine (test code 1.88 mg/dL 0.57-1.25 H = 2160-0) Glucose (test code = 113 mg/dL 70-105 H 2345-7) Calcium (test code = 8.2 mg/dL 8.4-10.2 L 73716-9) AST (test code = 772 U/L 5-34 H 1920-8) ALT (test code = 533 U/L 6-55 H 1742-6) EGFR (test code = 48 mL/min/1.[place] [address]-0) NOT ACCURATE CREATININE CLEARANCE IN PREDICTING GLOMERULAR FILTRATION RATE . ESTIMATED GFR I S NOT APPLICABLE FOR DIALYSIS PATIEN CARLEY (test code = CARLEY) Stock Driver ID - JUN Lab Interpretation Abnormal (test code = 55879-4) [facility] [id number] 16:31:00 Test Item Value Reference Range Interpretation Comments Protein, Total (test 5.2 See_Comment L [Autom ated code = 2885-2) message] The system which generated this result transmit ari reference range : 6.0 - 8.3 gm/dL . The reference range was not u sed to interpret th is result as normal/abnormal . Albumin (test code = 2.6 g/dL 3.5-5 L 09710-6) Alkaline Phosphatase 89 U/L 40-150 (test code = 6768-6) Total Bilirubin (test 0.8 mg/dL 0.2-1.2 code = 1974-2) Sodium (test code = 139 meq/L 837-764 9335-2) Potassium (test code 4.1 meq/L 3.5-5.1 = 2823-3) Chloride (test code = 105 meq/L 98-107 5-0) CO2 (test code = 26 meq/L -2028-02) BUN (test code = 20 mg/dL 12-28 3094-0) Creatinine (test code 1.88 mg/dL 0.57-1.25 H = 2160-0) Glucose (test code = 113 mg/dL 70-105 H 2345-7) Calcium (test code = 8.2 mg/dL 8.4-10.2 L 71569-9) AST (test code = 772 U/L 5-34 H 1920-8) ALT (test code = 533 U/L 6-55 H 1742-6) EGFR (test code = 48 mL/min/1.[place] [address]-8) NOT ACCURATE CREATININE CLEARANCE IN PREDICTING GLOMERULAR FILTRATION RATE . ESTIMATED GFR I S NOT APPLICABLE FOR DIALYSIS PATIEN TS. HOWE (test code = CARLEY) Stock Driver ID - JUN Lab Interpretation Abnormal (test code = 01895-2) [facility] [id number] 16:31:00 Test Item Value Reference Range Interpretation Comments Protein, Total (test 5.2 See_Comment L [Autom ated code = 2885-2) message] The system which generated this result transmit ari reference range : 6.0 - 8.3 gm/dL . The reference range was not u sed to interpret th is result as normal/abnormal . Albumin (test code = 2.6 g/dL 3.5-5 L 17258-5) Alkaline Phosphatase 89 U/L 40-150 (test code = 6768-6) Total Bilirubin (test 0.8 mg/dL 0.2-1.2 code = 1974-2) Sodium (test code = 139 meq/L 423-401 3022-2) Potassium (test code 4.1 meq/L 3.5-5.1 = 2823-3) Chloride (test code = 105 meq/L 98-107 2075-0) CO2 (test code = 26 meq/L 22-29 8-9) BUN (test code = 20 mg/dL 7- 3094-0) Creatinine (test code 1.88 mg/dL 0.57-1.25 H = 2160-0) Glucose (test code = 113 mg/dL 70-105 H 2345-7) Calcium (test code = 8.2 mg/dL 8.4-10.2 L 19026-9) AST (test code = 772 U/L 5-34 H 1920-8) ALT (test code = 533 U/L 6-55 H 1742-6) EGFR (test code = 48 mL/min/1.[place] [address]-7) NOT ACCURATE CREATININE CLEARANCE IN PREDICTING GLOMERULAR FILTRATION RATE . ESTIMATED GFR I S NOT APPLICABLE FOR DIALYSIS PATIEN TS. CARLEY (test code = CARLEY) Stock Driver ID - JESUS Lab Interpretation Abnormal (test code = 69862-5) [facility] [id number] 16:31:00 Test Item Value Reference Range Interpretation Comments TOTAL PROTEIN 5.2 gm/dL 6.0-8.3 L (BEAKER) (test code = 770) ALBUMIN (BEAKER) 2.6 g/dL 3.5-5.0 L (test code = 1145) ALKALINE PHOSPHATASE 89 U/L 40-150 (BEAKER) (test code = 346) BILIRUBIN TOTAL 0.8 mg/dL 0.2-1.2 (BEAKER) (test code = 377) SODIUM (BEAKER) (test 139 meq/L 136-145 code = 381) POTASSIUM (BEAKER) 4.1 meq/L 3.5-5.1 (test code = 379) CHLORIDE (BEAKER) 105 meq/L 98-107 (test code = 382) CO2 (BEAKER) (test 26 meq/L 22-29 code = 355) BLOOD UREA NITROGEN 20 mg/dL 7-21 (BEAKER) (test code = 354) CREATININE (BEAKER) 1.88 mg/dL 0.57-1.25 H (test code = 358) GLUCOSE RANDOM 113 mg/dL 70-105 H (BEAKER) (test code = 652) CALCIUM (BEAKER) 8.2 mg/dL 8.4-10.2 L (test code = 697) AST (SGOT) (BEAKER) 772 U/L 5-34 H (test code = 353) ALT (SGPT) (BEAKER) 533 U/L 6-55 H (test code = 347) EGFR (BEAKER) (test 48 mL/min/1.73 ESTIMA ARI GFR IS code = 1092) sq m NOT ACCURATE CREATININE CLEARANCE IN PREDICTING GLOMERULAR FILTRATION RATE . ESTIMATED GFR I S NOT APPLICABLE FOR DIALYSIS PATIEN TS. Stock Driver ID - [id number] 16:31:00 Test Item Value Reference Range Interpretation Comments MAGNESIUM (BEAKER) (test code = 2.3 mg/dL 1.6-2.6 627) Stock Driver ID - [id number] 16:31:00 Test Item Value Reference Range Interpretation Comments PHOSPHORUS (BEAKER) (test code = 4.2 mg/dL 2.3-4.7 604) Stock Driver ID - JESUSLACTIC ACID, [id number] 16:27:00 Test Item Value Reference Range Interpretation Comments LACTATE BLOOD ARTERIAL (2) 2.0 mmol/L 0.5-2.2 (BEAKER) (test code = 2874) Stock Driver ID - JENAE, CHEST, 1 VIEW, NON [id number] 16:17:00Reason for exam:->post opShould this be performed at the bedside?->Yes [facility] : 1975 Sex: MFINAL REPORT Chest, one view. HISTORY: post op COMPARISON: Radiograph from earlier today IMPRESSION: Interval placement of bilateral chest tubes, a mediastinal drain, and an additional drain over the mid thorax. And ovary removal of a right chest pigtail pleural catheter and a left chest tube. Otherwise, the support lines and tubes are unchanged in position. There is pulmonary edema as well as left basilar atelectasis. There is mild left apical pleural thickening could be due to a small effusion. No definite pneumothorax. The cardiac silhouette is unchanged in size. No acute bone abnormality. Signed: Jerzy Ferrell Verified Date/Time: 01/23/2021 16:17:46 Reading Location: [facility] C0[facility] Consult Reading Room [id number] 16:15:00 Test Item Value Reference Range Interpretation Comments FIBRINOGEN LEVEL (BEAKER) (test 274 mg/dl 225-434 code = 658) [id number] 16:15:00 Test Item Value Reference Range Interpretation Comments PARTIAL THROMBOPLASTIN TIME 39.6 seconds 22.5-36.0 H (BEAKER) (test code = 760) PROTHROMBIN [id number] 16:14:00 Test Item Value Reference Range Interpretation Comments PROTIME (BEAKER) 19.0 seconds 11.9-14.2 H (test code = 759) INR (BEAKER) (test 1.62 See_Comment [Automat ed message] code = 370) The system Umeng generated this result transmitted ref erence range: <=5.90. The reference range was not used to int erpret this result as normal/abnormal . RECOMMENDED COUMADIN/WARFARIN INR THERAPY RANGESSTANDARD DOSE: 2.0 - 3.0 Includes: PROPHYLAXIS forvenous thrombosis, systemic embolization; TREATMENT for venous thrombosis and/or pulmonary embolus.HIGH RISK: Target INR is 2.5-3.5 for patients with mechanical heart valves.BLOOD GAS, [id number] 16:01:00 Test Item Value Reference Range Interpretation Comments PH ARTERIAL (BEAKER) (test code = 7.47 7.35-7.45 H 383) PCO2 ARTERIAL (BEAKER) (test code 38 mm Hg 35-45 = 384) PO2 ARTERIAL (BEAKER) (test code = 200 mm Hg 80-90 H 385) O2 SATURATION ARTERIAL (BEAKER) 99.4 % 96.0-97.0 H (test code = 386) HCO3 ARTERIAL (BEAKER) (test code 28 mmol/L 21-29 = 388) BASE EXCESS ARTERIAL (BEAKER) 3.5 mmol/L -2.0-3.0 H (test code = 387) PATIENT TEMPERATURE (BEAKER) (test 36.7 code = 1818) FIO2 (BEAKER) (test code = 1819) 60.0 POTASSIUM-STAT [id number] 16:01:00 Test Item Value Reference Range Interpretation Comments POTASSIUM (BEAKER) (test code = 3.9 meq/L 3.6-5.5 379) GLUCOSE-STAT [id number] 16:01:00 Test Item Value Reference Range Interpretation Comments GLUCOSE RANDOM (BEAKER) (test code 117 mg/dL 70-110 H = 652) HGB/HCT (H&H) - STAT [id number] 16:01:00 Test Item Value Reference Range Interpretation Comments HEMOGLOBIN (BEAKER) (test code = 7.6 GM/DL 13.0-16.8 L 410) HEMATOCRIT (BEAKER) (test code = 22.0 % 40.0-50.0 L 411) SODIUM NA-STAT [id number] 16:00:00 Test Item Value Reference Range Interpretation Comments SODIUM (BEAKER) (test code = 381) 136 meq/L 136-145 [id number] 14:05:00 Test Item Value Reference Range Interpretation Comments FIBRINOGEN LEVEL (BEAKER) (test 265 mg/dl 225-434 code = 658) [id number] 14:05:00 Test Item Value Reference Range Interpretation Comments PARTIAL THROMBOPLASTIN TIME 51.7 seconds 22.5-36.0 H (BEAKER) (test code = 760) PROTHROMBIN [id number] 14:04:00 Test Item Value Reference Range Interpretation Comments PROTIME (BEAKER) 19.9 seconds 11.9-14.2 H (test code = 759) INR (BEAKER) (test 1.72 See_Comment [Automat ed message] code = 370) The system Umeng generated this result transmitted ref erence range: <=5.90. The reference range was not used to int erpret this result as normal/abnormal . RECOMMENDED COUMADIN/WARFARIN INR THERAPY RANGESSTANDARD DOSE: 2.0 - 3.0 Includes: PROPHYLAXIS forvenous thrombosis, systemic embolization; TREATMENT for venous thrombosis and/or pulmonary embolus.HIGH RISK: Target INR is 2.5-3.5 for patients with mechanical heart valves.Platelet [id number] 14:01:00 Test Item Value Reference Range Interpretation Comments Platelets (test code 113 See_Comment L [Autom ated = 777-3) message] The system which generated this result transmit ari reference range : 150 - 450 K/CU MM. The reference range was not u sed to interpret th is result as normal/abnormal . CARLEY (test code = CARLEY) Stock Driver ID - [id number] ID - [id number] Lab Interpretation Abnormal (test code = 74147-1) [facility] [id number] 14:01:00 Test Item Value Reference Range Interpretation Comments Platelets (test code 113 See_Comment L [Autom ated = 777-3) message] The system which generated this result transmit ari reference range : 150 - 450 K/CU MM. The reference range was not u sed to interpret th is result as normal/abnormal . CARLEY (test code = CARLEY) Stock Driver ID - [id number] ID - [id number] Lab Interpretation Abnormal (test code = 55191-1) [facility] [id number] 14:01:00 Test Item Value Reference Range Interpretation Comments Platelets (test code 113 See_Comment L [Autom ated = 777-3) message] The system which generated this result transmit ari reference range : 150 - 450 K/CU MM. The reference range was not u sed to interpret th is result as normal/abnormal . CARLEY (test code = CARLEY) Stock Driver ID - [id number] ID - [id number] Lab Interpretation Abnormal (test code = 02914-1) [facility] [id number] 14:01:00 Test Item Value Reference Range Interpretation Comments PLATELET COUNT (BEAKER) (test 113 K/CU MM 150-450 L code = 756) Stock Driver ID - [id number] ID - [id number] NA-STAT [id number] 13:50:00 Test Item Value Reference Range Interpretation Comments SODIUM (BEAKER) (test code = 381) 136 meq/L 136-145 POTASSIUM-STAT [id number] 13:50:00 Test Item Value Reference Range Interpretation Comments POTASSIUM (BEAKER) (test code = 4.4 meq/L 3.6-5.5 379) CALCIUM, [id number] 13:50:00 Test Item Value Reference Range Interpretation Comments CALCIUM IONIZED (BEAKER) (test 1.13 mmol/L 1.12-1.27 code = 698) PH, BLOOD (BEAKER) (test code = 7.43 1810) BLOOD GAS, [id number] 13:50:00 Test Item Value Reference Range Interpretation Comments PH ARTERIAL (BEAKER) (test code = 7.44 7.35-7.45 383) PCO2 ARTERIAL (BEAKER) (test code 40 mm Hg 35-45 = 384) PO2 ARTERIAL (BEAKER) (test code = 163 mm Hg 80-90 H 385) O2 SATURATION ARTERIAL (BEAKER) 99.1 % 96.0-97.0 H (test code = 386) HCO3 ARTERIAL (BEAKER) (test code 27 mmol/L 21-29 = 388) BASE EXCESS ARTERIAL (BEAKER) 2.3 mmol/L -2.0-3.0 (test code = 387) PATIENT TEMPERATURE (BEAKER) (test 36.8 code = 1818) FIO2 (BEAKER) (test code = 1819) 50.0 GLUCOSE-STAT [id number] 13:50:00 Test Item Value Reference Range Interpretation Comments GLUCOSE RANDOM (BEAKER) (test code 111 mg/dL 70-110 H = 652) HGB/HCT (H&H) - STAT [id number] 13:50:00 Test Item Value Reference Range Interpretation Comments HEMOGLOBIN (BEAKER) (test code = 8.8 GM/DL 13.0-16.8 L 410) HEMATOCRIT (BEAKER) (test code = 26.0 % 40.0-50.0 L 411) ANG, TUNNELED CATHETER [id number] 11:20:00Reason for Central Line/PICC?->Need for hemodialysis accessReason for exam:->TDC [facility] : 1975 Sex: MFINAL REPORT Tunneled dialysis catheter insertion. History: Renal failure. Modality: Sonography and fluoroscopy. Sedation: none Hvac Service Tech: Williams Garrett M.D. Steel Fabricator: Vannesa Owne MD. Approach: Right internal jugular vein Estimated blood loss: < 5 cc. Specimen: None. Fluoroscopy Time: 1.0 min. Dose (Ka,r): 5 mGy. Technique: Informed written consent was obtained. Discussion of risks, benefits, and alternatives were madewith the patient. The patient expressed understanding and agreed to proceed. All elements maximal sterile barrier technique was utilized for this procedure, including utilization of sterile scrub solution for skin prep, a large sterile sheet to cover the areas of the patient that were not prepped, and hand hygiene, mask, head covering, and sterile gown for performing radiologist and scrub technologist. The skin was anesthetized with 2% lidocaine.Ultrasound evaluation showed a patent and compressible right internal jugular vein, which was punctured under direct real-time ultrasound guidance with amicropuncture needle. An ultrasound image was saved to PACS. A 0.018 inch wire was placed through the needle into the right atrium. A 4 Bruneian micropuncture sheath was placed and a 0.035 wire was advanced into the IVC. A subcutaneous tunnel was created in the right anterior chest wall by blunt dissection. A 19 cm tip to cuff 15.5 Bruneian Duraflow 2 catheter was brought through the tunnel. The vessel tract was serially dilated. A peel-away sheath was placed in the right IJ vein and the catheter was advanced through the sheath, with its distal tip terminating in the superior right atrium. The peel-away sheath was removed. The ports were flushed and aspirated easily following placement. Thecatheter was sutured to the skin to secure its placement. The small jugular incision site was closed using Dermabond. A resorbable purse-string suture was placed at the catheter exit site. Vital signs were monitored throughout the procedure by a nurse, and remained stable. The patient tolerated theprocedure well and left the department in the same condition. Results: Spot radiograph of the chest demonstrates the newdialysis catheter to lie in the expected position with its tip overlying the superior right atrium. Impression: Successful, uncomplicated placement of a right internal jugular tunneled dialysis catheter using sonographic and fluoroscopic guidance and conscious sedation. Signed: Williams Garrett MDReport Verified Date/Time: 01/23/2021 11:20:38 IR Tunneled Catheter [id number] 11:20:00Interface, External Ris In - 01/23/2021 11:22 AM CDTFINAL REPORT Tunneled dialysis catheter insertion. History: Renal failure. Modality: Sonography and fluoroscopy. Sedation: none Hvac Service Tech: Williams Garrett M.D. Steel Fabricator: Vannesa Owen MD. Approach: Right internal jugular vein Estimated blood loss: < 5 cc. Specimen: None. Fluoroscopy Time: 1.0 min. Dose (Ka,r): 5 mGy. Technique: Informed written consent was obtained. Discussion of risks, benefits, and alternatives were made with the patient. The patient expressed understanding and agreed to proceed. All elements maximal sterile barrier technique was utilized for this procedure, including utilization of sterile scrub solution for skin prep, a large sterile sheet to cover the areas of the patient that were not prepped, and hand hygiene, mask, head covering, and sterile gown for performing radiologist and scrub technologist. The skin was anesthetized with 2% lidocaine.Ultrasound evaluation showed a patent and compressible right internal jugular vein, which was punctured under direct real-time ultrasound guidance with a micropuncture needle. An ultrasound image was saved to PACS. A 0.018 inch wire was placed through the needle into the right atrium. A 4 Bruneian micropuncture sheath was placed and a 0.035 wire was advanced into the IVC. A subcutaneous tunnel was created in the right anterior chest wall by blunt dissection. A 19 cm tip to cuff 15.5 [place] Duraflow 2 catheter was brought through the tunnel. The vessel tract was serially dilated. A peel-away sheath was placed in the right IJ vein and the catheter was advanced through the sheath, with its distal tip terminating in the superior right atrium. The peel-away sheath was removed. The ports were flushed andaspirated easily following placement. The catheter was sutured to the skin to secure its placement. The small jugular incision site was closed using Dermabond. A resorbable purse-string suture was placed at the catheter exit site. Vital signs were monitored throughout the procedure by a nurse, and remained stable. The patient tolerated the procedure well and left the department in the same condition. Results: Spot radiograph of the chest demonstrates the new dialysis catheter to lie in the expected position with its tip overlying the superior right atrium. Impression: Successful, uncomplicated placement of a right internal jugular tunneled dialysis catheter using sonographic and fluoroscopic guidance and conscious s edation. Signed: Williams Garrett MDReport Verified Date/Time: 01/23/2021 11:20:38 [facility] [id number] 11:20:00Interface, External Ris In - 01/23/2021 11:22 AM CDTFINAL REPORT Tunneled dialysis catheter insertion. History: Renal failure. Modality: Sonography and fluoroscopy. Sedation: none Hvac Service Tech: Williams Garrett M.D. Steel Fabricator: Vannesa Owen MD. Approach: Right internal jugular vein Estimated blood loss: < 5 cc. Specimen: None. Fluoroscopy Time: 1.0 min. Dose (Ka,r): 5 mGy. Technique: Informed written consent was obtained. Discussion of risks, benefits, and alternatives were made with the patient. The patient expressed understanding andagreed to proceed. All elements maximal sterile barrier technique was utilized for this procedure, including utilization of sterile scrub solution for skin prep, a large sterile sheet to cover the areas of the patient that were not prepped, and hand hygiene, mask, head covering, and sterile gown for performing radiologist and scrub technologist. The skin was anesthetized with 2% lidocaine.Ultrasound evaluation showed a patent and compressible right internal jugular vein, which was punctured under direct real- time ultrasound guidance with a micropuncture needle. An ultrasound image was saved to PACS. A 0.018 inch wire was placed through the needle into the right atrium. A 4 Bruneian micropuncture sheath was placed and a 0.035 wire was advanced into the IVC. A subcutaneous tunnel was created in the right anterior chest wall by blunt dissection. A 19 cm tip to cuff 15.5 Bruneian Duraflow 2 cat heter was brought through the tunnel. The vessel tract was serially dilated. A peel-away sheath was placed in the right IJ vein and the catheter was advanced through the sheath, with its distal tip terminating in the superior right atrium. The peel-away sheath was removed. The ports were flushed andaspirated easily following placement. The catheter was sutured to the skin to secure its placement. The small jugular incision site was closed using Dermabond. A resorbable purse-string suture was placed at the catheter exit site. Vital signs were monitored throughout the procedure by a nurse, and remained stable. The patient tolerated the procedure well and left the department in the same condition. Results: Spot radiograph of the chest demonstrates the new dialysis catheter to lie in the expected position with its tip overlying the superior right atrium. Impression: Successful, uncomplicated placement of a right internal jugular tunneled dialysis catheter using sonographic and fluoroscopic guidance and conscious s edation. Signed: Williams Garrett MDReport Verified Date/Time: 01/23/2021 11:20:38 [facility] [id number] 11:20:00Interface, External Ris In - 01/23/2021 11:22 AM CDTFINAL REPORT Tunneled dialysis catheter insertion. History: Renal failure. Modality: Sonography and fluoroscopy. Sedation: none Hvac Service Tech: Williams Garrett M.D. Steel Fabricator: Vannesa Owen MD. Approach: Right internal jugular vein Estimated blood loss: < 5 cc. Specimen: None. Fluoroscopy Time: 1.0 min. Dose (Ka,r): 5 mGy. Technique: Informed written consent was obtained. Discussion of risks, benefits, and alternatives were made with the patient. The patient expressed understanding andagreed to proceed. All elements maximal sterile barrier technique was utilized for this procedure, including utilization of sterile scrub solution for skin prep, a large sterile sheet to cover the areas of the patient that were not prepped, and hand hygiene, mask, head covering, and sterile gown for performing radiologist and scrub technologist. The skin was anesthetized with 2% lidocaine.Ultrasound evaluation showed a patent and compressible right internal jugular vein, which was punctured under direct real- time ultrasound guidance with a micropuncture needle. An ultrasound image was saved to PACS. A 0.018 inch wire was placed through the needle into the right atrium. A 4 Bruneian micropuncture sheath was placed and a 0.035 wire was advanced into the IVC. A subcutaneous tunnel was created in the right anterior chest wall by blunt dissection. A 19 cm tip to cuff 15.5 [place] Duraflow 2 cat heter was brought through the tunnel. The vessel tract was serially dilated. A peel-away sheath was placed in the right IJ vein and the catheter was advanced through the sheath, with its distal tip terminating in the superior right atrium. The peel-away sheath was removed. The ports were flushed andaspirated easily following placement. The catheter was sutured to the skin to secure its placement. The small jugular incision site was closed using Dermabond. A resorbable purse-string suture was placed at the catheter exit site. Vital signs were monitored throughout the procedure by a nurse, and remained stable. The patient tolerated the procedure well and left the department in the same condition. Results: Spot radiograph of the chest demonstrates the new dialysis catheter to lie in the expected position with its tip overlying the superior right atrium. Impression: Successful, uncomplicated placement of a right internal jugular tunneled dialysis catheter using sonographic and fluoroscopic guidance and conscious s edation. Signed: Williams Garrett MDReport Verified Date/Time: 01/23/2021 11:20:38 [facility] [id number] 10:57:00 Test Item Value Reference Range Interpretation Comments % Neutros (test code = 92 % 2816) % Lymphs (test code = 2 % 2817) % Monos (test code = 1 % 2818) % Myelo (test code = 1 % 0-0 H 2822) % Bands (test code = 4 % 0-10 2826) # Neutros (test code = 24.01 K/ul 1.78-5.38 H 2830) # Lymphs (test code = 0.52 K/ul 1.32-3.57 L 2831) # Monos (test code = 0.26 K/uL 0.3-0.82 L 2832) # Myelo (test code = 0.26 K/uL 0-0 H 2837) # Bands (test code = 1.04 K/uL 0-0.8 H 2840) Total Counted (test code 100 = 1351) Smudge Cells (test code = Present 1371) Giant Platelet (test code Present = 313) Polychromasia (test code 1+ few = 478) Anisocytosis (test code = 1+ few 961) Poikilocytes (test code = 2+ moderate 966) Chikis Cells (test code = 3+ many 474) Platelet Conc (test code Decreased = 3438) CARLEY (test code = CARLEY) Stock Driver ID - [id number] ID - Sun Menendez comments: Slide comments: Lab Interpretation (test Abnormal code = 48754-3) [facility] [id number] 10:57:00 Test Item Value Reference Range Interpretation Comments % Neutros (test code = 92 % 2816) % Lymphs (test code = 2 % 2817) % Monos (test code = 1 % 2818) % Myelo (test code = 1 % 0-0 H 2822) % Bands (test code = 4 % 0-10 2826) # Neutros (test code = 24.01 K/ul 1.78-5.38 H 2830) # Lymphs (test code = 0.52 K/ul 1.32-3.57 L 2831) # Monos (test code = 0.26 K/uL 0.3-0.82 L 2832) # Myelo (test code = 0.26 K/uL 0-0 H 2837) # Bands (test code = 1.04 K/uL 0-0.8 H 2840) Total Counted (test code 100 = 1351) Smudge Cells (test code = Present 1371) Giant Platelet (test code Present = 313) Polychromasia (test code 1+ few = 478) Anisocytosis (test code = 1+ few 961) Poikilocytes (test code = 2+ moderate 966) Chikis Cells (test code = 3+ many 474) Platelet Conc (test code Decreased = 3438) CARLEY (test code = CARLEY) Stock Driver ID - [id number] ID - Sun Menendez comments: Slide comments: Lab Interpretation (test Abnormal code = 36723-6) [facility] [id number] 10:57:00 Test Item Value Reference Range Interpretation Comments % Neutros (test code = 92 % 2816) % Lymphs (test code = 2 % 2817) % Monos (test code = 1 % 2818) % Myelo (test code = 1 % 0-0 H 2822) % Bands (test code = 4 % 0-10 2826) # Neutros (test code = 24.01 K/ul 1.78-5.38 H 2830) # Lymphs (test code = 0.52 K/ul 1.32-3.57 L 2831) # Monos (test code = 0.26 K/uL 0.3-0.82 L 2832) # Myelo (test code = 0.26 K/uL 0-0 H 2837) # Bands (test code = 1.04 K/uL 0-0.8 H 2840) Total Counted (test code 100 = 1351) Smudge Cells (test code = Present 1371) Giant Platelet (test code Present = 313) Polychromasia (test code 1+ few = 478) Anisocytosis (test code = 1+ few 961) Poikilocytes (test code = 2+ moderate 966) Chikis Cells (test code = 3+ many 474) Platelet Conc (test code Decreased = 3438) CARLEY (test code = CARLEY) Stock Driver ID - [id number] ID - Sun Shon comments: Slide comments: Lab Interpretation (test Abnormal code = 78944-7) [facility](CELLAVISION MANUAL DIFF)2021-01-23 10:57:00 Test Item Value Reference Range Interpretation Comments NEUTROPHILS - REL 92 % (CELLAVISION)(BEAKER) (test code = 2816) LYMPHOCYTES - REL 2 % (CELLAVISION)(BEAKER) (test code = 2817) MONOCYTES - REL 1 % (CELLAVISION)(BEAKER) (test code = 2818) MYELOCYTES - REL 1 % 0-0 H (CELLAVISION)(BEAKER) (test code = 2822) BANDS - REL (CELLAVISION)(BEAKER) 4 % 0-10 (test code = 2826) NEUTROPHILS - ABS 24.01 K/ul 1.78-5.38 H (CELLAVISION)(BEAKER) (test code = 2830) LYMPHOCYTES - ABS 0.52 K/ul 1.32-3.57 L (CELLAVISION)(BEAKER) (test code = 2831) MONOCYTES - ABS 0.26 K/uL 0.30-0.82 L (CELLAVISION)(BEAKER) (test code = 2832) MYELOCYTES-ABS 0.26 K/uL 0.00-0.00 H (CELLAVISION)(BEAKER) (test code = 2837) BANDS - ABS (CELLAVISION)(BEAKER) 1.04 K/uL 0.00-0.80 H (test code = 2840) TOTAL COUNTED (BEAKER) (test code 100 = 1351) SMUDGE CELLS (BEAKER) (test code Present = 1371) GIANT PLATELETS (BEAKER) (test Present code = 313) POLYCHROMATOPHILLIC RBCS(BEAKER) 1+ few (test code = 478) ANISOCYTOSIS (BEAKER) (test code 1+ few = 961) POIKILOCYTES (BEAKER) (test code 2+ moderate = 966) CHIKIS CELLS (BEAKER) (test code = 3+ many 474) PLATELET CONCENTRATION Decreased (CELLAVISION)(BEAKER) (test code = 3438) Stock Driver ID - [id number] ID - Sun Menendez comments: Slide comments:MAGNESIUM 2021-01-23 10:10:00 Test Item Value Reference Range Interpretation Comments MAGNESIUM (BEAKER) 2.2 mg/dL 1.6-2.6 Specimen slightly (test code = 627) hemolyzed Stock Driver ID - [id number] 10:10:00 Test Item Value Reference Range Interpretation Comments PHOSPHORUS (BEAKER) 3.5 mg/dL 2.3-4.7 Specimen slightly (test code = 604) hemolyzed Stock Driver ID - JANPOCT-GLUCOSE [id number] 10:01:00 Test Item Value Reference Range Interpretation Comments POC-GLUCOSE METER 108 mg/dL 70-110 : TESTED A T [facility] 6720 (BEAKER) (test code = [place], 1538) [address]: Stock Driver/Techni won ID = [id number] for Fo xaviert, Levy CBC (HEMOGRAM ONLY)2021-01-23 09:50:00 Test Item Value Reference Range Interpretation Comments WHITE BLOOD CELL COUNT (BEAKER) 21.5 K/ L 3.5-10.5 H (test code = 775) RED BLOOD CELL COUNT (BEAKER) 3.24 M/ L 4.63-6.08 L (test code = 761) HEMOGLOBIN (BEAKER) (test code = 9.2 GM/DL 13.7-17.5 L 410) HEMATOCRIT (BEAKER) (test code = 27.8 % 40.1-51.0 L 411) MEAN CORPUSCULAR VOLUME (BEAKER) 85.8 fL 79.0-92.2 (test code = 753) MEAN CORPUSCULAR HEMOGLOBIN 28.4 pg 25.7-32.2 (BEAKER) (test code = 751) MEAN CORPUSCULAR HEMOGLOBIN CONC 33.1 GM/DL 32.3-36.5 (BEAKER) (test code = 752) RED CELL DISTRIBUTION WIDTH 17.1 % 11.6-14.4 H (BEAKER) (test code = 412) PLATELET COUNT (BEAKER) (test code 74 K/CU MM 150-450 L = 756) MEAN PLATELET VOLUME (BEAKER) 11.2 fL 9.4-12.4 (test code = 754) NUCLEATED RED BLOOD CELLS (BEAKER) 1 /100 WBC 0-0 H (test code = 413) BASIC METABOLIC [id number] 04:53:00 Test Item Value Reference Range Interpretation Comments SODIUM (BEAKER) 136 meq/L 136-145 (test code = 381) POTASSIUM (BEAKER) 4.4 meq/L 3.5-5.1 (test code = 379) CHLORIDE (BEAKER) 104 meq/L 98-107 (test code = 382) CO2 (BEAKER) (test 22 meq/L 22-29 code = 355) BLOOD UREA NITROGEN 20 mg/dL 7-21 (BEAKER) (test code = 354) CREATININE (BEAKER) 1.78 mg/dL 0.57-1.25 H (test code = 358) GLUCOSE RANDOM 102 mg/dL 70-105 (BEAKER) (test code = 652) CALCIUM (BEAKER) 8.9 mg/dL 8.4-10.2 (test code = 697) EGFR (BEAKER) (test 51 mL/min/1.73 ESTIMA ARI GFR IS code = 1092) sq m NOT ACCURATE CREATININE CLEARANCE IN PREDICTING GLOMERULAR FILTRATION RATE . ESTIMATED GFR I S NOT APPLICABLE FOR DIALYSIS PATIEN TS. Stock Driver ID - [id number] 04:53:00 Test Item Value Reference Range Interpretation Comments MAGNESIUM (BEAKER) (test code = 2.2 mg/dL 1.6-2.6 627) Stock Driver ID - [id number] 04:53:00 Test Item Value Reference Range Interpretation Comments PHOSPHORUS (BEAKER) (test code = 2.9 mg/dL 2.3-4.7 604) Stock Driver ID - DBPROTHROMBIN [id number] 04:43:00 Test Item Value Reference Range Interpretation Comments PROTIME (BEAKER) 24.0 seconds 11.9-14.2 H (test code = 759) INR (BEAKER) (test 2.17 See_Comment [Automat ed message] code = 370) The system Umeng generated this result transmitted ref erence range: <=5.90. The reference range was not used to int erpret this result as normal/abnormal . RECOMMENDED COUMADIN/WARFARIN INR THERAPY RANGESSTANDARD DOSE: 2.0 - 3.0 Includes: PROPHYLAXIS forvenous thrombosis, systemic embolization; TREATMENT for venous thrombosis and/or pulmonary embolus.HIGH RISK: Target INR is 2.5-3.5 for patients with mechanical heart valves.[id number] 04:43:00 Test Item Value Reference Range Interpretation Comments PARTIAL THROMBOPLASTIN TIME 46.2 seconds 22.5-36.0 H (BEAKER) (test code = 760) CBC W/PLT COUNT & AUTO [id number] 04:38:00 Test Item Value Reference Range Interpretation Comments WHITE BLOOD CELL COUNT (BEAKER) 26.1 K/ L 3.5-10.5 H (test code = 775) RED BLOOD CELL COUNT (BEAKER) 3.28 M/ L 4.63-6.08 L (test code = 761) HEMOGLOBIN (BEAKER) (test code = 9.5 GM/DL 13.7-17.5 L 410) HEMATOCRIT (BEAKER) (test code = 28.5 % 40.1-51.0 L 411) MEAN CORPUSCULAR VOLUME (BEAKER) 86.9 fL 79.0-92.2 (test code = 753) MEAN CORPUSCULAR HEMOGLOBIN 29.0 pg 25.7-32.2 (BEAKER) (test code = 751) MEAN CORPUSCULAR HEMOGLOBIN CONC 33.3 GM/DL 32.3-36.5 (BEAKER) (test code = 752) RED CELL DISTRIBUTION WIDTH 16.7 % 11.6-14.4 H (BEAKER) (test code = 412) PLATELET COUNT (BEAKER) (test code 76 K/CU MM 150-450 L = 756) MEAN PLATELET VOLUME (BEAKER) 11.7 fL 9.4-12.4 (test code = 754) NUCLEATED RED BLOOD CELLS (BEAKER) 0 /100 WBC 0-0 (test code = 413) LACTIC ACID, [id number] 04:27:00 Test Item Value Reference Range Interpretation Comments LACTATE BLOOD 2.2 mmol/L 0.5-2.2 Specimen sligh tly ARTERIAL (2) (BEAKER) hemoly zed (test code = 2874) Stock Driver ID - DBBLOOD GAS, [id number] 04:14:00 Test Item Value Reference Range Interpretation Comments PH ARTERIAL (BEAKER) (test code = 7.51 7.35-7.45 H 383) PCO2 ARTERIAL (BEAKER) (test code 31 mm Hg 35-45 L = 384) PO2 ARTERIAL (BEAKER) (test code = 221 mm Hg 80-90 H 385) O2 SATURATION ARTERIAL (BEAKER) 99.6 % 96.0-97.0 H (test code = 386) HCO3 ARTERIAL (BEAKER) (test code 25 mmol/L 21-29 = 388) BASE EXCESS ARTERIAL (BEAKER) 1.8 mmol/L -2.0-3.0 (test code = 387) PATIENT TEMPERATURE (BEAKER) (test 36.4 code = 1818) FIO2 (BEAKER) (test code = 1819) 60.0 OXYGEN SATURATION, [id number] 04:14:00 Test Item Value Reference Range Interpretation Comments O2 SATURATION (MEASURED) (BEAKER) 67.7 % (test code = 1455) CALCIUM, [id number] 04:14:00 Test Item Value Reference Range Interpretation Comments CALCIUM IONIZED (BEAKER) (test 1.18 mmol/L 1.12-1.27 code = 698) PH, BLOOD (BEAKER) (test code = 7.50 1810) RAD, CHEST, 1 VIEW, NON [id number] 03:56:00Reason for exam:->chest tubes, s/p cardiac surgeryShould this be performed at the bedside?->Yes [facility] 1975 Sex: MFINAL REPORT RAD, CHEST, 1 VIEW, NON DEPT INDICATION: chest tubes, s/p cardiac surgery COMPARISON: Prior day's exam FINDINGS: Portable frontal view of the chest. IMPRESSION: Support Lines: Stable. Lungs and pleura: Unchanged airspace and pleural opacities. No pneumothorax.Heart and mediastinum: Stable contours. Stable surgical changes.Additional findings: None. Signed: Sae Pinon Verified Date/Time: 01/23/2021 03:56:28 [id number] 01:12:00 Test Item Value Reference Range Interpretation Comments MAGNESIUM (BEAKER) 1.6 mg/dL 1.6-2.6 Specimen slightly (test code = 627) hemolyzed Stock Driver ID - DBBASIC METABOLIC [id number] 01:12:00 Test Item Value Reference Range Interpretation Comments SODIUM (BEAKER) 136 meq/L 136-145 (test code = 381) POTASSIUM (BEAKER) 4.4 meq/L 3.5-5.1 Specimen slightly (test code = 379) hemolyzed CHLORIDE (BEAKER) 104 meq/L 98-107 (test code = 382) CO2 (BEAKER) (test 21 meq/L 22-29 L code = 355) BLOOD UREA NITROGEN 22 mg/dL 7-21 H (BEAKER) (test code = 354) CREATININE (BEAKER) 1.93 mg/dL 0.57-1.25 H Specimen slightly (test code = 358) hemolyzed GLUCOSE RANDOM 95 mg/dL 70-105 (BEAKER) (test code = 652) CALCIUM (BEAKER) 8.8 mg/dL 8.4-10.2 (test code = 697) EGFR (BEAKER) (test 46 mL/min/1.73 ESTIMA ARI GFR IS code = 1092) sq m NOT ACCURATE CREATININE CLEARANCE IN PREDICTING GLOMERULAR FILTRATION RATE . ESTIMATED GFR I S NOT APPLICABLE FOR DIALYSIS PATIEN TS. Stock Driver ID - DBLACTIC ACID, [id number] 01:08:00 Test Item Value Reference Range Interpretation Comments LACTATE BLOOD 2.9 mmol/L 0.5-2.2 H Specimen sligh tly ARTERIAL (2) (BEAKER) hemoly zed (test code = 2874) Stock Driver ID - DBCALCIUM, [id number] 00:35:00 Test Item Value Reference Range Interpretation Comments CALCIUM IONIZED (BEAKER) (test 1.17 mmol/L 1.12-1.27 code = 698) PH, BLOOD (BEAKER) (test code = 7.50 1810) BLOOD GAS, [id number] 00:35:00 Test Item Value Reference Range Interpretation Comments PH ARTERIAL (BEAKER) (test code = 7.51 7.35-7.45 H 383) PCO2 ARTERIAL (BEAKER) (test code 30 mm Hg 35-45 L = 384) PO2 ARTERIAL (BEAKER) (test code = 224 mm Hg 80-90 H 385) O2 SATURATION ARTERIAL (BEAKER) 99.6 % 96.0-97.0 H (test code = 386) HCO3 ARTERIAL (BEAKER) (test code 24 mmol/L 21-29 = 388) BASE EXCESS ARTERIAL (BEAKER) 0.7 mmol/L -2.0-3.0 (test code = 387) PATIENT TEMPERATURE (BEAKER) (test 36.6 code = 1818) FIO2 (BEAKER) (test code = 1819) 60.0 [id number] 21:21:00 Test Item Value Reference Range Interpretation Comments PARTIAL THROMBOPLASTIN TIME 54.6 seconds 22.5-36.0 H (BEAKER) (test code = 760) PROTHROMBIN [id number] 21:20:00 Test Item Value Reference Range Interpretation Comments PROTIME (BEAKER) 28.7 seconds 11.9-14.2 H (test code = 759) INR (BEAKER) (test 2.73 See_Comment [Automat ed message] code = 370) The system Umeng generated this result transmitted ref erence range: <=5.90. The reference range was not used to int erpret this result as normal/abnormal . RECOMMENDED COUMADIN/WARFARIN INR THERAPY RANGESSTANDARD DOSE: 2.0 - 3.0 Includes: PROPHYLAXIS forvenous thrombosis, systemic embolization; TREATMENT for venous thrombosis and/or pulmonary embolus.HIGH RISK: Target INR is 2.5-3.5 for patients with mechanical heart valves.[id number] 21:20:00 Test Item Value Reference Range Interpretation Comments FIBRINOGEN LEVEL (BEAKER) (test 228 mg/dl 225-434 code = 658) [id number] 21:02:00 Test Item Value Reference Range Interpretation Comments PHOSPHORUS (BEAKER) (test code = 4.2 mg/dL 2.3-4.7 604) Stock Driver ID - DBLACTIC ACID, [id number] 21:00:00 Test Item Value Reference Range Interpretation Comments LACTATE BLOOD ARTERIAL (2) 3.6 mmol/L 0.5-2.2 H (BEAKER) (test code = 2874) Stock Driver ID - DBCBC (HEMOGRAM ONLY)2021-01-22 20:50:00 Test Item Value Reference Range Interpretation Comments WHITE BLOOD CELL COUNT (BEAKER) 36.3 K/ L 3.5-10.5 H (test code = 775) RED BLOOD CELL COUNT (BEAKER) 2.88 M/ L 4.63-6.08 L (test code = 761) HEMOGLOBIN (BEAKER) (test code = 8.2 GM/DL 13.7-17.5 L 410) HEMATOCRIT (BEAKER) (test code = 25.4 % 40.1-51.0 L 411) MEAN CORPUSCULAR VOLUME (BEAKER) 88.2 fL 79.0-92.2 (test code = 753) MEAN CORPUSCULAR HEMOGLOBIN 28.5 pg 25.7-32.2 (BEAKER) (test code = 751) MEAN CORPUSCULAR HEMOGLOBIN CONC 32.3 GM/DL 32.3-36.5 (BEAKER) (test code = 752) RED CELL DISTRIBUTION WIDTH 17.2 % 11.6-14.4 H (BEAKER) (test code = 412) PLATELET COUNT (BEAKER) (test code 97 K/CU MM 150-450 L = 756) MEAN PLATELET VOLUME (BEAKER) 10.0 fL 9.4-12.4 (test code = 754) NUCLEATED RED BLOOD CELLS (BEAKER) 1 /100 WBC 0-0 H (test code = 413) BLOOD GAS, [id number] 20:37:00 Test Item Value Reference Range Interpretation Comments PH ARTERIAL (BEAKER) (test code = 7.42 7.35-7.45 383) PCO2 ARTERIAL (BEAKER) (test code 34 mm Hg 35-45 L = 384) PO2 ARTERIAL (BEAKER) (test code 207 mm Hg 80-90 H = 385) O2 SATURATION ARTERIAL (BEAKER) 99.4 % 96.0-97.0 H (test code = 386) HCO3 ARTERIAL (BEAKER) (test code 22 mmol/L 21-29 = 388) BASE EXCESS ARTERIAL (BEAKER) -2.7 mmol/L -2.0-3.0 L (test code = 387) PATIENT TEMPERATURE (BEAKER) 36.7 (test code = 1818) FIO2 (BEAKER) (test code = 1819) 60.0 OXYGEN SATURATION, [id number] 20:37:00 Test Item Value Reference Range Interpretation Comments O2 SATURATION (MEASURED) (BEAKER) 45.7 % (test code = 1455) HGB/HCT (H&H) - STAT [id number] 20:37:00 Test Item Value Reference Range Interpretation Comments HEMOGLOBIN (BEAKER) (test code = 8.7 GM/DL 13.0-16.8 L 410) HEMATOCRIT (BEAKER) (test code = 26.0 % 40.0-50.0 L 411) GLUCOSE-STAT [id number] 20:36:00 Test Item Value Reference Range Interpretation Comments GLUCOSE RANDOM (BEAKER) (test code 110 mg/dL 70-110 = 652) SODIUM NA-STAT [id number] 20:36:00 Test Item Value Reference Range Interpretation Comments SODIUM (BEAKER) (test code = 381) 136 meq/L 136-145 POTASSIUM-STAT [id number] 20:36:00 Test Item Value Reference Range Interpretation Comments POTASSIUM (BEAKER) (test code = 4.2 meq/L 3.6-5.5 379) CT, CHEST, WITH [id number] 20:16:00Unlisted Reason for Exam - Click Yes and Enter Reason Below->No [facility] 1975 Sex: MFINAL REPORT CT, ABDOMEN \\T\\ PELVIS, WITH IV CONTRAST, CT, CHEST, WITH CONTRAST INDICATION: Unlisted Reason for Examrule out bleed COMPARISON: None TECHNIQUE: Post contrast axially oriented images were obtained from the thoracic inlet through the pelvis. Coronal and sagittal reformats were provided. DOSE REDUCTION: Dose modulation, iterative reconstruction, and/or weight-based adjustment of the mA/kV was utilized to reduce the radiation dose to as low as reasonably achievable. FINDINGS: Examination extremely limited due to poor timing of contrast bolus possibly due to poor cardiac output. Chest:Lines and tubes: Right IJ central venous catheter with tip terminating in the right atrium. An enteric tube is seen coursing inferiorly with tip terminating in the gastric antrum. Endotracheal tube terminates at the level of T3-4. There is a left common femoral vein central venous catheter with tip terminating in the external iliac vein however difficult to evaluate on this examination. Right- sided pleural pigtail catheter. Left-sided chest tube is seen with tip terminati ng in the posterior superior pleural space.Lungs and Pleura: Loculated heterogeneously predominantlyhyperdense large left pleural effusion consistent with large hemopneumothorax with near complete collapse of the left lung. Consolidative airspace opacity in the dependent right lower lobe with associated groundglass airspace opacities. Few right-sided pulmonary nodules, the largest of which measures 9 mm associated with the major fissure. No right sided pleural effusion or pneumothorax. Central airways: Patent.Mediastinum: No adenopathy. The esophagus is not well seen. Limited evaluation for mediastinal adenopathy due to timing of contrast. Thyroid gland is grossly unremarkable.Heart and pericardium: The heart is globally enlarged. There is a large heterogeneous hemopericardium/hemomediastinum .Great vessels: Normal calibers. Post surgical changes of a mitral valve repair. Severe coronary artery calcifications. 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 Acute obliquely oriented fracture deformity of the sternum Acute fracture deformity of the second left lateral rib. Soft tissues: Total body anasarca. No axillary adenopathy. Likely intramuscular hematoma within the left lateral chest wall. Abdomen and Pelvis:Liver: No acute ab normality with limited evaluation due to timing of contrast.. Hepatomegaly.Gallbladder and biliary tree: Gallbladder is normal in size. Common bile duct not well-seen on this examination..Pancreas: No acute findings.Spleen: Heterogeneity of the spleen may be related to timing of contrast however diffic ult to exclude splenic lesion versus multifocal areas of infarction.. Inferior deviation of the spleen due to the large left hemothorax.Adrenal Glands: No acute findings.Kidneys and ureters: Atrophic multicystic kidneys bilaterally, not well evaluated on this examination.. No hydronephrosis or hydroure ter.Bladder and reproductive organs: Bladder is decompressed which limits evaluation. The prostate gland is unremarkable..Stomach and Duodenum: No significant findings.Small and large intestine: Normalcalibers.Appendix: Not identified.Major vascular structures: Normal aortic caliber. Gas within the left iliac veins likely related to left common femoral central venous catheter. Peritoneum and retroperitoneum: Small volume intra-abdominal ascites. No definite pneumoperitoneum is identified on this examination however difficult due to anasarca and poor visualization bowel wall. No pathologically enlarged intra-abdominal lymph nodes. Skeleton: No acute bony abnormality. Additional Findings: Totalbody anasarca. IMPRESSION:Examination extremely limited due to poor timing of contrast bolus possibly due to poor cardiac output. Large left hemothorax, hemopericardium and hemomediastinum.There is near complete collapse of the left lung. Consolidative airspace opacity in the dependent right lower l obe with associated groundglass airspace opacities possibly related atelectasis however aspiration or pneumonia can have this appearance. Few right-sided pulmonary nodules, the largest of which measures 9 mm associated with the major fissure possibly inflammatory or infectious in etiology however recommend follow-up CT chest in three months to ensure resolution. Global cardiomegaly. Acute obliquely oriented fracture deformity of the sternum as well as an acute fracture of the second left lateral rib. Likely intramuscular /subcutaneous hematoma within the left lateral chest wall. Hepatomegaly. Heterogeneity of the spleen may be related to timing of contrast however difficult to exclude spleniclesion versus multifocal areas of infarction.. Atrophic multicystic kidneys bilaterally, not well evaluated on this examination.. Small volume intra-abdominal ascites. NOTIFICATION: The significantresults of this study were discussed with and acknowledged by critical care team, by telephone on 01/08 8:01 PM. Signed: Sae Pinon Verified Date/Time: 01/22/2021 20:16:28 CT, [id number] 20:16:00Unlisted Reason for Exam - Click Yes and Enter Reason Below->YesUnlisted Reason for Exam->ruleout bleedWill this procedure require oral contrast?->No [facility] : 1975 Sex: MFINAL REPORT CT, ABDOMEN \\T\\ PELVIS, WITH IV CONTRAST, CT, CHEST, WITH CONTRAST INDICATION: Unlisted Reason for Examrule out bleed COMPARISON: None TECHNIQUE: Post contrast axially oriented images were obtained from the thoracic inlet through the pelvis. Coronal and sagittal reformats were provided. DOSE REDUCTION: Dose modulation, iterative reconstruction, and/or weight-based adjustment of the mA/kV was utilized to reduce the radiation dose to as low as reasonably achievable. FINDINGS: Examination extremely limited due to poor timing of contrast bolus possibly due to poor cardiac output. Chest:Lines and tubes: Right IJ central venous catheter with tip terminating in the right atrium. An enteric tube is seen coursing inferiorly with tip terminating in the gastric antrum. Endotracheal tube terminates at the level of T3-4. There is a left common femoral vein central venous catheter with tip terminating in the external iliac vein however difficult to evaluate on this examination. Right- sided pleural pigtail catheter. Left-sided chest tube is seen with tip terminati ng in the posterior superior pleural space.Lungs and Pleura: Loculated heterogeneously predominantlyhyperdense large left pleural effusion consistent with large hemopneumothorax with near complete collapse of the left lung. Consolidative airspace opacity in the dependent right lower lobe with associated groundglass airspace opacities. Few right-sided pulmonary nodules, the largest of which measures 9 mm associated with the major fissure. No right sided pleural effusion or pneumothorax. Central airways: Patent.Mediastinum: No adenopathy. The esophagus is not well seen. Limited evaluation for mediastinal adenopathy due to timing of contrast. Thyroid gland is grossly unremarkable.Heart and pericardium: The heart is globally enlarged. There is a large heterogeneous hemopericardium/hemomediastinum .Great vessels: Normal calibers. Post surgical changes of a mitral valve repair. Severe coronary artery calcifications. 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 Acute obliquely oriented fracture deformity of the sternum Acute fracture deformity of the second left lateral rib. Soft tissues: Total body anasarca. No axillary adenopathy. Likely intramuscular hematoma within the left lateral chest wall. Abdomen and Pelvis:Liver: No acute ab normality with limited evaluation due to timing of contrast.. Hepatomegaly.Gallbladder and biliary tree: Gallbladder is normal in size. Common bile duct not well-seen on this examination..Pancreas: No acute findings.Spleen: Heterogeneity of the spleen may be related to timing of contrast however diffic ult to exclude splenic lesion versus multifocal areas of infarction.. Inferior deviation of the spleen due to the large left hemothorax.Adrenal Glands: No acute findings.Kidneys and ureters: Atrophic multicystic kidneys bilaterally, not well evaluated on this examination.. No hydronephrosis or hydroure ter.Bladder and reproductive organs: Bladder is decompressed which limits evaluation. The prostate gland is unremarkable..Stomach and Duodenum: No significant findings.Small and large intestine: Normalcalibers.Appendix: Not identified.Major vascular structures: Normal aortic caliber. Gas within the left iliac veins likely related to left common femoral central venous catheter. Peritoneum and retroperitoneum: Small volume intra-abdominal ascites. No definite pneumoperitoneum is identified on this examination however difficult due to anasarca and poor visualization bowel wall. No pathologically enlarged intra-abdominal lymph nodes. Skeleton: No acute bony abnormality. Additional Findings: Totalbody anasarca. IMPRESSION:Examination extremely limited due to poor timing of contrast bolus possibly due to poor cardiac output. Large left hemothorax, hemopericardium and hemomediastinum.There is near complete collapse of the left lung. Consolidative airspace opacity in the dependent right lower l obe with associated groundglass airspace opacities possibly related atelectasis however aspiration or pneumonia can have this appearance. Few right-sided pulmonary nodules, the largest of which measures 9 mm associated with the major fissure possibly inflammatory or infectious in etiology however recommend follow-up CT chest in three months to ensure resolution. Global cardiomegaly. Acute obliquely oriented fracture deformity of the sternum as well as an acute fracture of the second left lateral rib. Likely intramuscular /subcutaneous hematoma within the left lateral chest wall. Hepatomegaly. Heterogeneity of the spleen may be related to timing of contrast however difficult to exclude spleniclesion versus multifocal areas of infarction.. Atrophic multicystic kidneys bilaterally, not well evaluated on this examination.. Small volume intra-abdominal ascites. NOTIFICATION: The significantresults of this study were discussed with and acknowledged by critical care team, by telephone on 01/08 8:01 PM. Signed: Sae Pinonort Verified Date/Time: 01/22/2021 20:16:28 CT chest with IV [id number] 20:16:00Interface, External Ris In - 01/22/2021 8:[address], ABDOMEN \\T\\ PELVIS, WITH IV CONTRAST, CT, CHEST, WITH CONTRAST INDICATION: Unlisted Reason for Examrule out bleed COMPARISON: None TECHNIQUE: Post contrast axially oriented images were obtained from the thoracic inlet through the pelvis. Coronal and sagittal reformats were provided. DOSE REDUCTION: Dose modulation, iterative reconstruction, and/or weight-based adjustment of the mA/kV was utilized to reduce the radiation dose to as low as reasonably achievable. FINDINGS: Examination extremely limited due to poor timing of contrast bolus possibly due to poor cardiac output. Chest:Lines and tubes: Right IJ central venous catheter with tip terminating in the right atrium. An enteric tube is seen coursing inferiorly with tip terminating in the gastric antrum. Endotracheal tube terminates at the level of T3-4.There is a left common femoral vein central venous catheter with tip terminating in the external iliac vein however difficult to evaluate on this examination. Right-sided pleural pigtail catheter. Left-sided chest tube is seen with tip terminating in the posterior superior pleural space.Lungs and Pleura: Loculated heterogeneously predominantly hyperdense large left pleural effusion consistent with large hemopneumothorax with near complete collapse of the left lung. Consolidative airspace opacity in the dependent right lower lobe with associated groundglass airspace opacities. Few right-sided pulmonary nodules, the largest of which measures 9 mm associated with the major fissure. No right sided pleural effusion or pneumothorax. Central airways: Patent.Mediastinum: No adenopathy. The esophagus is not well seen. Limited evaluation for mediastinal adenopathy due to timing of contrast. Thyroid glandis grossly unremarkable.Heart and pericardium: The heart is globally enlarged. There is a large heterogeneous hemopericardium/hemomediastinum .Great vessels: Normal calibers. Post surgical changes of amitral valve repair. Severe coronary artery calcifications. 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 Acute obliquely oriented fracturedeformity of the sternum Acute fracture deformity of the second left lateral rib. Soft tissues: Total body anasarca. No axillary adenopathy. Likely intramuscular hematoma within the left lateral chest wall. Abdomen and Pelvis:Liver: No acute abnormality with limited evaluation due to timing of contrast.. Hepatomegaly.Gallbladder and biliary tree: Gallbladder is normal in size. Common bile duct not well-seen on this examination..Pancreas: No acute findings.Spleen: Heterogeneity of the spleen may be related to timing of contrast however difficult to exclude splenic lesion versus multifocal areas of infarction.. Inferior deviation of the spleen due to the large left hemothorax.Adrenal Glands: No acute findings.Kidneys and ureters: Atrophic multicystic kidneys bilaterally, not well evaluated on this examination.. No hydronephrosis or hydroureter.Bladder and reproductive organs: Bladder is decompressed which limits evaluation. The prostate gland is unremarkable..Stomach and Duodenum: No significantfindings.Small and large intestine: Normal calibers.Appendix: Not identified.Major vascular structures: Normal aortic caliber. Gas within the left iliac veins likely related to left common femoral central venous catheter. Peritoneum and retroperitoneum: Small volume intra-abdominal ascites. No definite pneumoperitoneum is identified on this examination however difficult due to anasarca and poor visualization bowel wall. No pathologically enlarged intra-abdominal lymph nodes. Skeleton: No acute bony abnormality. Additional Findings: Total body anasarca. IMPRESSION:Examination extremely limited due to poor timing of contrast bolus possibly due to poor cardiac output. Large left hemothorax, hemopericardium and hemomediastinum.There is near complete collapse of the left lung. Consolidative airspace opacity in the dependent right lower lobe with associated groundglass airspace opacities possibly related atelectasis however aspiration or pneumonia can have this appearance. Few right-sided pulmonary nodules, the largest of which measures 9 mm associated with the major fissure possibly inflammatory or infectious in etiology however recommend follow-up CT chest in three months to ensure resolution. Global cardiomegaly. Acute obliquely oriented fracture deformity of the sternum as well as anacute fracture of the second left lateral rib. Likely intramuscular /subcutaneous hematoma within the left lateral chest wall. Hepatomegaly. Heterogeneity of the spleen may be related to timing of contrast however difficult to exclude splenic lesion versus multifocal areas of infarction.. Atrophic multicystic kidneys bilaterally, not well evaluated on this examination.. Small volume intra-abdominal ascites. NOTIFICATION: The significant results of this study were discussed with and acknowledged by critical care team, by telephone on 01/22/2021 8:01 PM. Signed: Sae Pinon Verified Date/Time: 01/22/2021 [facility]16:[facility] [id number] 20:16:00Interface, External Ris In - 01/22/2021 8:[address], ABDOMEN \\T\\ PELVIS, WITH IV CONTRAST, CT, CHEST, WITH CONTRAST INDICATION: Unlisted Reason for Examrule out bleed COMPARISON: None TECHNIQUE: Post contrast axially oriented images were obtained from the thoracic inlet through the pelvis. Coronal and sagittal reformats were provided. DOSE REDUCTION: Dose modulation, iterative reconstruction, and/or weight-based adjustment of the mA/kV was utilized to reduce the radiation dose to as low as reasonably achievable. FINDINGS: Examination extremely limited due to poor timing of contrast bolus possibly due to poor cardiac output. Chest:Lines and tubes: Right IJ central venous catheter with tip terminating in the right atrium. An enteric tube is seen coursing inferiorly with tip terminating in the gastric antrum. Endotracheal tube terminates at the level of T3-4.There is a left common femoral vein central venous catheter with tip terminating in the external iliac vein however difficult to evaluate on this examination. Right-sided pleural pigtail catheter. Left-sided chest tube is seen with tip terminating in the posterior superior pleural space.Lungs and Pleura: Loculated heterogeneously predominantly hyperdense large left pleural effusion consistent with large hemopneumothorax with near complete collapse of the left lung. Consolidative airspace opacity in the dependent right lower lobe with associated groundglass airspace opacities. Few right-sided pulmonary nodules, the largest of which measures 9 mm associated with the major fissure. No right sided pleural effusion or pneumothorax. Central airways: Patent.Mediastinum: No adenopathy. The esophagus is not well seen. Limited evaluation for mediastinal adenopathy due to timing of contrast. Thyroid glandis grossly unremarkable.Heart and pericardium: The heart is globally enlarged. There is a large heterogeneous hemopericardium/hemomediastinum .Great vessels: Normal calibers. Post surgical changes of amitral valve repair. Severe coronary artery calcifications. 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 Acute obliquely oriented fracturedeformity of the sternum Acute fracture deformity of the second left lateral rib. Soft tissues: Total body anasarca. No axillary adenopathy. Likely intramuscular hematoma within the left lateral chest wall. Abdomen and Pelvis:Liver: No acute abnormality with limited evaluation due to timing of contrast.. Hepatomegaly.Gallbladder and biliary tree: Gallbladder is normal in size. Common bile duct not well-seen on this examination..Pancreas: No acute findings.Spleen: Heterogeneity of the spleen may be related to timing of contrast however difficult to exclude splenic lesion versus multifocal areas of infarction.. Inferior deviation of the spleen due to the large left hemothorax.Adrenal Glands: No acute findings.Kidneys and ureters: Atrophic multicystic kidneys bilaterally, not well evaluated on this examination.. No hydronephrosis or hydroureter.Bladder and reproductive organs: Bladder is decompressed which limits evaluation. The prostate gland is unremarkable..Stomach and Duodenum: No significantfindings.Small and large intestine: Normal calibers.Appendix: Not identified.Major vascular structures: Normal aortic caliber. Gas within the left iliac veins likely related to left common femoral central venous catheter. Peritoneum and retroperitoneum: Small volume intra-abdominal ascites. No definite pneumoperitoneum is identified on this examination however difficult due to anasarca and poor visualization bowel wall. No pathologically enlarged intra-abdominal lymph nodes. Skeleton: No acute bony abnormality. Additional Findings: Total body anasarca. IMPRESSION:Examination extremely limited due to poor timing of contrast bolus possibly due to poor cardiac output. Large left hemothorax, hemopericardium and hemomediastinum.There is near complete collapse of the left lung. Consolidative airspace opacity in the dependent right lower lobe with associated groundglass airspace opacities possibly related atelectasis however aspiration or pneumonia can have this appearance. Few right-sided pulmonary nodules, the largest of which measures 9 mm associated with the major fissure possibly inflammatory or infectious in etiology however recommend follow-up CT chest in three months to ensure resolution. Global cardiomegaly. Acute obliquely oriented fracture deformity of the sternum as well as anacute fracture of the second left lateral rib. Likely intramuscular /subcutaneous hematoma within the left lateral chest wall. Hepatomegaly. Heterogeneity of the spleen may be related to timing of contrast however difficult to exclude splenic lesion versus multifocal areas of infarction.. Atrophic multicystic kidneys bilaterally, not well evaluated on this examination.. Small volume intra-abdominal ascites. NOTIFICATION: The significant results of this study were discussed with and acknowledged by critical care team, by telephone on 01/22/2021 8:01 PM. Signed: Sae Pinon Verified Date/Time: 01/22/2021 20:16:[facility] [id number] 20:16:00Interface, External Ris In - 01/22/2021 8:[address], ABDOMEN \\T\\ PELVIS, WITH IV CONTRAST, CT, CHEST, WITH CONTRAST INDICATION: Unlisted Reason for Examrule out bleed COMPARISON: None TECHNIQUE: Post contrast axially oriented images were obtained from the thoracic inlet through the pelvis. Coronal and sagittal reformats were provided. DOSE REDUCTION: Dose modulation, iterative reconstruction, and/or weight-based adjustment of the mA/kV was utilized to reduce the radiation dose to as low as reasonably achievable. FINDINGS: Examination extremely limited due to poor timing of contrast bolus possibly due to poor cardiac output. Chest:Lines and tubes: Right IJ central venous catheter with tip terminating in the right atrium. An enteric tube is seen coursing inferiorly with tip terminating in the gastric antrum. Endotracheal tube terminates at the level of T3-4.There is a left common femoral vein central venous catheter with tip terminating in the external iliac vein however difficult to evaluate on this examination. Right-sided pleural pigtail catheter. Left-sided chest tube is seen with tip terminating in the posterior superior pleural space.Lungs and Pleura: Loculated heterogeneously predominantly hyperdense large left pleural effusion consistent with large hemopneumothorax with near complete collapse of the left lung. Consolidative airspace opacity in the dependent right lower lobe with associated groundglass airspace opacities. Few right-sided pulmonary nodules, the largest of which measures 9 mm associated with the major fissure. No right sided pleural effusion or pneumothorax. Central airways: Patent.Mediastinum: No adenopathy. The esophagus is not well seen. Limited evaluation for mediastinal adenopathy due to timing of contrast. Thyroid glandis grossly unremarkable.Heart and pericardium: The heart is globally enlarged. There is a large heterogeneous hemopericardium/hemomediastinum .Great vessels: Normal calibers. Post surgical changes of amitral valve repair. Severe coronary artery calcifications. 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 Acute obliquely oriented fracturedeformity of the sternum Acute fracture deformity of the second left lateral rib. Soft tissues: Total body anasarca. No axillary adenopathy. Likely intramuscular hematoma within the left lateral chest wall. Abdomen and Pelvis:Liver: No acute abnormality with limited evaluation due to timing of contrast.. Hepatomegaly.Gallbladder and biliary tree: Gallbladder is normal in size. Common bile duct not well-seen on this examination..Pancreas: No acute findings.Spleen: Heterogeneity of the spleen may be related to timing of contrast however difficult to exclude splenic lesion versus multifocal areas of infarction.. Inferior deviation of the spleen due to the large left hemothorax.Adrenal Glands: No acute findings.Kidneys and ureters: Atrophic multicystic kidneys bilaterally, not well evaluated on this examination.. No hydronephrosis or hydroureter.Bladder and reproductive organs: Bladder is decompressed which limits evaluation. The prostate gland is unremarkable..Stomach and Duodenum: No significantfindings.Small and large intestine: Normal calibers.Appendix: Not identified.Major vascular structures: Normal aortic caliber. Gas within the left iliac veins likely related to left common femoral central venous catheter. Peritoneum and retroperitoneum: Small volume intra-abdominal ascites. No definite pneumoperitoneum is identified on this examination however difficult due to anasarca and poor visualization bowel wall. No pathologically enlarged intra-abdominal lymph nodes. Skeleton: No acute bony abnormality. Additional Findings: Total body anasarca. IMPRESSION:Examination extremely limited due to poor timing of contrast bolus possibly due to poor cardiac output. Large left hemothorax, hemopericardium and hemomediastinum.There is near complete collapse of the left lung. Consolidative airspace opacity in the dependent right lower lobe with associated groundglass airspace opacities possibly related atelectasis however aspiration or pneumonia can have this appearance. Few right-sided pulmonary nodules, the largest of which measures 9 mm associated with the major fissure possibly inflammatory or infectious in etiology however recommend follow-up CT chest in three months to ensure resolution. Global cardiomegaly. Acute obliquely oriented fracture deformity of the sternum as well as anacute fracture of the second left lateral rib. Likely intramuscular /subcutaneous hematoma within the left lateral chest wall. Hepatomegaly. Heterogeneity of the spleen may be related to timing of contrast however difficult to exclude splenic lesion versus multifocal areas of infarction.. Atrophic multicystic kidneys bilaterally, not well evaluated on this examination.. Small volume intra-abdominal ascites. NOTIFICATION: The significant results of this study were discussed with and acknowledged by critical care team, by telephone on 01/22/2021 8:01 PM. Signed: Sae Pinon Verified Date/Time: 01/22/2021 20:16:28 [facility] [id number] 20:16:00Interface, External Ris In - 01/22/2021 8:[address], ABDOMEN \\T\\ PELVIS, WITH IV CONTRAST, CT, CHEST, WITH CONTRAST INDICATION: Unlisted Reason for Examrule out bleed COMPARISON: None TECHNIQUE: Post contrast axially oriented images were obtained from the thoracic inlet through the pelvis. Coronal and sagittal reformats were provided. DOSE REDUCTION: Dose modulation, iterative reconstruction, and/or weight-based adjustment of the mA/kV was utilized to reduce the radiation dose to as low as reasonably achievable. FINDINGS: Examination extremely limited due to poor timing of contrast bolus possibly due to poor cardiac output. Chest:Lines and tubes: Right IJ central venous catheter with tip terminating in the right atrium. An enteric tube is seen coursing inferiorly with tip terminating in the gastric antrum. Endotracheal tube terminates at the level of T3-4.There is a left common femoral vein central venous catheter with tip terminating in the external iliac vein however difficult to evaluate on this examination. Right-sided pleural pigtail catheter. Left-sided chest tube is seen with tip terminating in the posterior superior pleural space.Lungs and Pleura: Loculated heterogeneously predominantly hyperdense large left pleural effusion consistent with large hemopneumothorax with near complete collapse of the left lung. Consolidative airspace opacity in the dependent right lower lobe with associated groundglass airspace opacities. Few right-sided pulmonary nodules, the largest of which measures 9 mm associated with the major fissure. No right sided pleural effusion or pneumothorax. Central airways: Patent.Mediastinum: No adenopathy. The esophagus is not well seen. Limited evaluation for mediastinal adenopathy due to timing of contrast. Thyroid glandis grossly unremarkable.Heart and pericardium: The heart is globally enlarged. There is a large heterogeneous hemopericardium/hemomediastinum .Great vessels: Normal calibers. Post surgical changes of amitral valve repair. Severe coronary artery calcifications. 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 Acute obliquely oriented fracturedeformity of the sternum Acute fracture deformity of the second left lateral rib. Soft tissues: Total body anasarca. No axillary adenopathy. Likely intramuscular hematoma within the left lateral chest wall. Abdomen and Pelvis:Liver: No acute abnormality with limited evaluation due to timing of contrast.. Hepatomegaly.Gallbladder and biliary tree: Gallbladder is normal in size. Common bile duct not well-seen on this examination..Pancreas: No acute findings.Spleen: Heterogeneity of the spleen may be related to timing of contrast however difficult to exclude splenic lesion versus multifocal areas of infarction.. Inferior deviation of the spleen due to the large left hemothorax.Adrenal Glands: No acute findings.Kidneys and ureters: Atrophic multicystic kidneys bilaterally, not well evaluated on this examination.. No hydronephrosis or hydroureter.Bladder and reproductive organs: Bladder is decompressed which limits evaluation. The prostate gland is unremarkable..Stomach and Duodenum: No significantfindings.Small and large intestine: Normal calibers.Appendix: Not identified.Major vascular structures: Normal aortic caliber. Gas within the left iliac veins likely related to left common femoral central venous catheter. Peritoneum and retroperitoneum: Small volume intra-abdominal ascites. No definite pneumoperitoneum is identified on this examination however difficult due to anasarca and poor visualization bowel wall. No pathologically enlarged intra-abdominal lymph nodes. Skeleton: No acute bony abnormality. Additional Findings: Total body anasarca. IMPRESSION:Examination extremely limited due to poor timing of contrast bolus possibly due to poor cardiac output. Large left hemothorax, hemopericardium and hemomediastinum.There is near complete collapse of the left lung. Consolidative airspace opacity in the dependent right lower lobe with associated groundglass airspace opacities possibly related atelectasis however aspiration or pneumonia can have this appearance. Few right-sided pulmonary nodules, the largest of which measures 9 mm associated with the major fissure possibly inflammatory or infectious in etiology however recommend follow-up CT chest in three months to ensure resolution. Global cardiomegaly. Acute obliquely oriented fracture deformity of the sternum as well as anacute fracture of the second left lateral rib. Likely intramuscular /subcutaneous hematoma within the left lateral chest wall. Hepatomegaly. Heterogeneity of the spleen may be related to timing of contrast however difficult to exclude splenic lesion versus multifocal areas of infarction.. Atrophic multicystic kidneys bilaterally, not well evaluated on this examination.. Small volume intra-abdominal ascites. NOTIFICATION: The significant results of this study were discussed with and acknowledged by critical care team, by telephone on 01/22/2021 8:01 PM. Signed: Sae Pinon Verified Date/Time: 01/22/2021 20:16:[facility] [id number] 20:16:00Interface, External Ris In - 01/22/2021 8:[address], ABDOMEN \\T\\ PELVIS, WITH IV CONTRAST, CT, CHEST, WITH CONTRAST INDICATION: Unlisted Reason for Examrule out bleed COMPARISON: None TECHNIQUE: Post contrast axially oriented images were obtained from the thoracic inlet through the pelvis. Coronal and sagittal reformats were provided. DOSE REDUCTION: Dose modulation, iterative reconstruction, and/or weight-based adjustment of the mA/kV was utilized to reduce the radiation dose to as low as reasonably achievable. FINDINGS: Examination extremely limited due to poor timing of contrast bolus possibly due to poor cardiac output. Chest:Lines and tubes: Right IJ central venous catheter with tip terminating in the right atrium. An enteric tube is seen coursing inferiorly with tip terminating in the gastric antrum. Endotracheal tube terminates at the level of T3-4.There is a left common femoral vein central venous catheter with tip terminating in the external iliac vein however difficult to evaluate on this examination. Right-sided pleural pigtail catheter. Left-sided chest tube is seen with tip terminating in the posterior superior pleural space.Lungs and Pleura: Loculated heterogeneously predominantly hyperdense large left pleural effusion consistent with large hemopneumothorax with near complete collapse of the left lung. Consolidative airspace opacity in the dependent right lower lobe with associated groundglass airspace opacities. Few right-sided pulmonary nodules, the largest of which measures 9 mm associated with the major fissure. No right sided pleural effusion or pneumothorax. Central airways: Patent.Mediastinum: No adenopathy. The esophagus is not well seen. Limited evaluation for mediastinal adenopathy due to timing of contrast. Thyroid glandis grossly unremarkable.Heart and pericardium: The heart is globally enlarged. There is a large heterogeneous hemopericardium/hemomediastinum .Great vessels: Normal calibers. Post surgical changes of amitral valve repair. Severe coronary artery calcifications. 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 Acute obliquely oriented fracturedeformity of the sternum Acute fracture deformity of the second left lateral rib. Soft tissues: Total body anasarca. No axillary adenopathy. Likely intramuscular hematoma within the left lateral chest wall. Abdomen and Pelvis:Liver: No acute abnormality with limited evaluation due to timing of contrast.. Hepatomegaly.Gallbladder and biliary tree: Gallbladder is normal in size. Common bile duct not well-seen on this examination..Pancreas: No acute findings.Spleen: Heterogeneity of the spleen may be related to timing of contrast however difficult to exclude splenic lesion versus multifocal areas of infarction.. Inferior deviation of the spleen due to the large left hemothorax.Adrenal Glands: No acute findings.Kidneys and ureters: Atrophic multicystic kidneys bilaterally, not well evaluated on this examination.. No hydronephrosis or hydroureter.Bladder and reproductive organs: Bladder is decompressed which limits evaluation. The prostate gland is unremarkable..Stomach and Duodenum: No significantfindings.Small and large intestine: Normal calibers.Appendix: Not identified.Major vascular structures: Normal aortic caliber. Gas within the left iliac veins likely related to left common femoral central venous catheter. Peritoneum and retroperitoneum: Small volume intra-abdominal ascites. No definite pneumoperitoneum is identified on this examination however difficult due to anasarca and poor visualization bowel wall. No pathologically enlarged intra-abdominal lymph nodes. Skeleton: No acute bony abnormality. Additional Findings: Total body anasarca. IMPRESSION:Examination extremely limited due to poor timing of contrast bolus possibly due to poor cardiac output. Large left hemothorax, hemopericardium and hemomediastinum.There is near complete collapse of the left lung. Consolidative airspace opacity in the dependent right lower lobe with associated groundglass airspace opacities possibly related atelectasis however aspiration or pneumonia can have this appearance. Few right-sided pulmonary nodules, the largest of which measures 9 mm associated with the major fissure possibly inflammatory or infectious in etiology however recommend follow-up CT chest in three months to ensure resolution. Global cardiomegaly. Acute obliquely oriented fracture deformity of the sternum as well as anacute fracture of the second left lateral rib. Likely intramuscular /subcutaneous hematoma within the left lateral chest wall. Hepatomegaly. Heterogeneity of the spleen may be related to timing of contrast however difficult to exclude splenic lesion versus multifocal areas of infarction.. Atrophic multicystic kidneys bilaterally, not well evaluated on this examination.. Small volume intra-abdominal ascites. NOTIFICATION: The significant results of this study were discussed with and acknowledged by critical care team, by telephone on 01/22/2021 8:01 PM. Signed: Sae Pinonort Verified Date/Time: 01/22/2021 20:16:28 [facility] [id number] 20:16:00Interface, External Ris In - 01/22/2021 8:[address], ABDOMEN \\T\\ PELVIS, WITH IV CONTRAST, CT, CHEST, WITH CONTRAST INDICATION: Unlisted Reason for Examrule out bleed COMPARISON: None TECHNIQUE: Post contrast axially oriented images were obtained from the thoracic inlet through the pelvis. Coronal and sagittal reformats were provided. DOSE REDUCTION: Dose modulation, iterative reconstruction, and/or weight-based adjustment of the mA/kV was utilized to reduce the radiation dose to as low as reasonably achievable. FINDINGS: Examination extremely limited due to poor timing of contrast bolus possibly due to poor cardiac output. Chest:Lines and tubes: Right IJ central venous catheter with tip terminating in the right atrium. An enteric tube is seen coursing inferiorly with tip terminating in the gastric antrum. Endotracheal tube terminates at the level of T3-4.There is a left common femoral vein central venous catheter with tip terminating in the external iliac vein however difficult to evaluate on this examination. Right-sided pleural pigtail catheter. Left-sided chest tube is seen with tip terminating in the posterior superior pleural space.Lungs and Pleura: Loculated heterogeneously predominantly hyperdense large left pleural effusion consistent with large hemopneumothorax with near complete collapse of the left lung. Consolidative airspace opacity in the dependent right lower lobe with associated groundglass airspace opacities. Few right-sided pulmonary nodules, the largest of which measures 9 mm associated with the major fissure. No right sided pleural effusion or pneumothorax. Central airways: Patent.Mediastinum: No adenopathy. The esophagus is not well seen. Limited evaluation for mediastinal adenopathy due to timing of contrast. Thyroid glandis grossly unremarkable.Heart and pericardium: The heart is globally enlarged. There is a large heterogeneous hemopericardium/hemomediastinum .Great vessels: Normal calibers. Post surgical changes of amitral valve repair. Severe coronary artery calcifications. 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 Acute obliquely oriented fracturedeformity of the sternum Acute fracture deformity of the second left lateral rib. Soft tissues: Total body anasarca. No axillary adenopathy. Likely intramuscular hematoma within the left lateral chest wall. Abdomen and Pelvis:Liver: No acute abnormality with limited evaluation due to timing of contrast.. Hepatomegaly.Gallbladder and biliary tree: Gallbladder is normal in size. Common bile duct not well-seen on this examination..Pancreas: No acute findings.Spleen: Heterogeneity of the spleen may be related to timing of contrast however difficult to exclude splenic lesion versus multifocal areas of infarction.. Inferior deviation of the spleen due to the large left hemothorax.Adrenal Glands: No acute findings.Kidneys and ureters: Atrophic multicystic kidneys bilaterally, not well evaluated on this examination.. No hydronephrosis or hydroureter.Bladder and reproductive organs: Bladder is decompressed which limits evaluation. The prostate gland is unremarkable..Stomach and Duodenum: No significantfindings.Small and large intestine: Normal calibers.Appendix: Not identified.Major vascular structures: Normal aortic caliber. Gas within the left iliac veins likely related to left common femoral central venous catheter. Peritoneum and retroperitoneum: Small volume intra-abdominal ascites. No definite pneumoperitoneum is identified on this examination however difficult due to anasarca and poor visualization bowel wall. No pathologically enlarged intra-abdominal lymph nodes. Skeleton: No acute bony abnormality. Additional Findings: Total body anasarca. IMPRESSION:Examination extremely limited due to poor timing of contrast bolus possibly due to poor cardiac output. Large left hemothorax, hemopericardium and hemomediastinum.There is near complete collapse of the left lung. Consolidative airspace opacity in the dependent right lower lobe with associated groundglass airspace opacities possibly related atelectasis however aspiration or pneumonia can have this appearance. Few right-sided pulmonary nodules, the largest of which measures 9 mm associated with the major fissure possibly inflammatory or infectious in etiology however recommend follow-up CT chest in three months to ensure resolution. Global cardiomegaly. Acute obliquely oriented fracture deformity of the sternum as well as anacute fracture of the second left lateral rib. Likely intramuscular /subcutaneous hematoma within the left lateral chest wall. Hepatomegaly. Heterogeneity of the spleen may be related to timing of contrast however difficult to exclude splenic lesion versus multifocal areas of infarction.. Atrophic multicystic kidneys bilaterally, not well evaluated on this examination.. Small volume intra-abdominal ascites. NOTIFICATION: The significant results of this study were discussed with and acknowledged by critical care team, by telephone on 01/22/2021 8:01 PM. Signed: Sae Pinon Verified Date/Time: 01/22/2021 20:16:28 [facility] [facility], [id number] 18:28:00 Test Item Value Reference Range Interpretation Comments PH ARTERIAL (BEAKER) (test code = 7.42 7.35-7.45 383) PCO2 ARTERIAL (BEAKER) (test code 29 mm Hg 35-45 L = 384) PO2 ARTERIAL (BEAKER) (test code 289 mm Hg 80-90 H = 385) O2 SATURATION ARTERIAL (BEAKER) 99.7 % 96.0-97.0 H (test code = 386) HCO3 ARTERIAL (BEAKER) (test code 18 mmol/L 21-29 L = 388) BASE EXCESS ARTERIAL (BEAKER) -5.7 mmol/L -2.0-3.0 L (test code = 387) PATIENT TEMPERATURE (BEAKER) 36.2 (test code = 1818) FIO2 (BEAKER) (test code = 1819) 60.0 RAD, CHEST, 1 VIEW, NON [id number] 18:14:00Reason for exam:->chest tubeShould this be performed at the bedside?->Yes [facility] : 1975 Sex: MFINAL REPORT Chest one view. Clinical history: chest tube Comparison: 01/22/2021 Discussion: A frontal chest is provided. Cardiomediastinal contours are unchanged. Lines and tubes are in stable position. Left pleural- parenchymal opacities are unchanged. No pneumothorax. Signed: Sharla Lopez Verified Date/Time: 01/22/2021 18:14:34 Reading Location: [address] Ortho Consult Reading Room POCT-GLUCOSE [id number] 16:43:00 Test Item Value Reference Range Interpretation Comments POC-GLUCOSE METER 88 mg/dL 70-110 : TESTED A T [facility] 6720 (BEAKER) (test code = NORM [place], 1538) [address]: Stock Driver/Techni won ID = [id number] for Font ensurjit Levy 2D Echo W/Doppler(CW/PW/Color)2021-01-22 15:11:52Ejection FractionSLE ECHO HEARTLAB MKCKESSON CPACSInterface, External Ris In - 01/22/2021 3:12 PM C DTTransthoracic Echocardiography Report (TTE) Demographics Patient Name CROW KAUR Date ofStudy 01/22/2021 SHELBY SR. Gender Male Visit Number [id number] Race Unknown Room Number C823 Number Date of 1975 Referring Jes Ramos NP Physician Age 45 year(s) Loom Tuner Jeffrey Montes [facility] Disabilities Caregiver Olvin Butler Interpreting Physician YUNIER Marks Procedure Type of Study TTE procedure:2DECHO W DOPPLER(CW/PW/COLOR) (STAT) Indications:Eval EF Function.Clinical HistoryESRDHypertension01/11/21 MVR - 31mm SJM Master SeriesHGB 5.4HCT 18.5 %Height: 74 inches Weight: 76.2 kg (168 lbs) BSA: 2.02 m^2 BMI: 21.57kg/m^2HR: 113 bpm BP: 103/68 mmHg Summary 1. LV chamber is small. Severe LVH. All of the LV segmentsare hyperkinetic . LVEF is increased (>70%) . 2. A small posterior pericardial effusion is present . Pericardial hematoma anterior is suspected. 3. A mechanical MV prosthesis is visualized with normal function by Doppler .Mean Gradient: 1.87 mmHg 4. RV chamber size is small . Global RV systolic function is depressed .The RV wall thickness is mildly increased . Previous Study Compared to the previous study there was no significant change. Signature Findings Left Ventricle The left ventricle is chamber size (by PSLAX dimension) is small . Severe concentric LV hypertrophy. All of the LV segments are hyperkinetic . Estimated LVEF by qualitative assessment is increased (>70%) . LV SVI is reduced. Left Atrium LA size is severely enlarged (>48 ml/m2) . Right Ventricle RV chamber size is small . Global RV systolic function is depressed . The RV wall thickness is mildly increased . Right Atrium Right atrium dilated. RA catheter is visualized .Aortic Valve Mild AoV cusp thickening. Mild aortic regurgitation. Mitral Valve A mechanical MV prosthesis is visualized with normal function by Doppler .Mean Gradient: 1.87 mmHg Tricuspid Valve Mild tricuspid regurgitation. Pulmonic Valve PV is not well visualized. Aorta Aortic root size (SInus of Valsalva diameter) is normal . Pericardium A small posterior pericardial effusion is present . Pericardial hematoma anterior is suspected. IVC/SVC/PA/PV/Pleural The estimated RA pressure by IVC dynamics >20mmHg . Chambers/Structures Left Atrium LA Volume: 170.77 ml LA Area: 40.76 cm^2 LA Vol. Index:85 ml/m^2 Left Ventricle LVIDd: 3.38 cm LVEDV:34.81 ml LV Septum Diastolic: 1.77 cm LV PW Diastolic: 1.79 cm LVOT Diameter: 1.76 cm Aorta Ao Root S of Arlen.: 3.03 cm Doppler/Quantitative Measurements Mitral Valve Mean Velocity: 0.62 m/s Mean Gradient: 1.87 mmHg Area (continuity): 1.83 cm^2 MV VTI: 14.57 cm MV Anshul. Peak: 1.09 m/s Aortic Valve Peak Velocity: 1.49 m/s Mean Velocity: 0.94 m/s Peak Gradient: 8.9 mmHg Mean Gradient: 4.3 mmHg AV Area (continuity): 2.14 cm^2 AV VTI: 12.45 cm AV DVI: 0.88 LVOT Peak Velocity: 0.94 m/s Peak Gradient: 3.63 mmHg Mean Velocity: 0.65 m/s Mean Gradient: 1.97 mmHg LVOT Diameter: 1.76 cm LVOT VTI: 10.95 cm LVOT Area: 2.43 cm^2 LVOT SV:26.63 ml LVOT CO: 3.01 l/min LVOT CI: 1.49 l/min/m^2 Tricuspid Valve TR Velocity: 2.68 m/s TR Gradient: 28.64 mmHgSuburban Medical Center2D Echo W/Doppler(CW/PW/Color)2021-01-22 15:11:52Ejection FractionSLEH ECHO HEARTLAB MKKIMBERLEY CPACSInterface, External Ris In - 01/22/2021 3:12 PM CDTTransthoracic Echocardiography Report (TTE) Demographics Patient Name CROW KAUR Date ofStudy 01/22/2021 RYAN SR. Gender Male Visit Number [id number] Race Unknown Room Number C823 Number Date of 1975 Referring Jes Ramos NP Physician Age 45 year(s) Loom Tuner Jeffrey Montes [facility] Disabilities Caregiver Olvin Butler Interpreting Physician YUNIER Marks Procedure Type of Study TTE procedure:2DECHO W DOPPLER(CW/PW/COLOR) (STAT) Indications:Eval EF Function.Clinical HistoryESRDHypertension01/11/21 MVR - 31mm M Master SeriesHGB 5.4HCT 18.5 %Height: 74 inches Weight: 76.2 kg (168 lbs) BSA: 2.02 m^2 BMI: 21.57kg/m^2HR: 113 bpm BP: 103/68 mmHg Summary 1. LV chamber is small. Severe LVH. All of the LV segmentsare hyperkinetic . LVEF is increased (>70%) . 2. A small posterior pericardial effusion is present . Pericardial hematoma anterior is suspected. 3. A mechanical MV prosthesis is visualized with normal function by Doppler .Mean Gradient: 1.87 mmHg 4. RV chamber size is small . Global RV systolic function is depressed .The RV wall thickness is mildly increased . Previous Study Compared to the previous study there was no significant change. Signature Findings Left Ventricle The left ventricle is chamber size (by PSLAX dimension) is small . Severe concentric LV hypertrophy. All of the LV segments are hyperkinetic . Estimated LVEF by qualitative assessment is increased (>70%) . LV SVI is reduced. Left Atrium LA size is severely enlarged (>48 ml/m2) . Right Ventricle RV chamber size is small . Global RV systolic function is depressed . The RV wall thickness is mildly increased . Right Atrium Right atrium dilated. RA catheter is visualized .Aortic Valve Mild AoV cusp thickening. Mild aortic regurgitation. Mitral Valve A mechanical MV prosthesis is visualized with normal function by Doppler .Mean Gradient: 1.87 mmHg Tricuspid Valve Mild tricuspid regurgitation. Pulmonic Valve PV is not well visualized. Aorta Aortic root size (SInus of Valsalva diameter) is normal . Pericardium A small posterior pericardial effusion is present . Pericardial hematoma anterior is suspected. IVC/SVC/PA/PV/Pleural The estimated RA pressure by IVC dynamics >20mmHg . Chambers/Structures Left Atrium LA Volume: 170.77 ml LA Area: 40.76 cm^2 LA Vol. Index:85 ml/m^2 Left Ventricle LVIDd: 3.38 cm LVEDV:34.81 ml LV Septum Diastolic: 1.77 cm LV PW Diastolic: 1.79 cm LVOT Diameter: 1.76 cm Aorta Ao Root S of Arlen.: 3.03 cm Doppler/Quantitative Measurements Mitral Valve Mean Velocity: 0.62 m/s Mean Gradient: 1.87 mmHg Area (continuity): 1.83 cm^2 MV VTI: 14.57 cm MV Anshul. Peak: 1.09 m/s Aortic Valve Peak Velocity: 1.49 m/s Mean Velocity: 0.94 m/s Peak Gradient: 8.9 mmHg Mean Gradient: 4.3 mmHg AV Area (continuity): 2.14 cm^2 AV VTI: 12.45 cm AV DVI: 0.88 LVOT Peak Velocity: 0.94 m/s Peak Gradient: 3.63 mmHg Mean Velocity: 0.65 m/s Mean Gradient: 1.97 mmHg LVOT Diameter: 1.76 cm LVOT VTI: 10.95 cm LVOT Area: 2.43 cm^2 LVOT SV:26.63 ml LVOT CO: 3.01 l/min LVOT CI: 1.49 l/min/m^2 Tricuspid Valve TR Velocity: 2.68 m/s TR Gradient: 28.64 mmHgSuburban Medical Center2D Echo W/Doppler(CW/PW/Color)2021-01-22 15:11:52Ejection FractionSLEH ECHO HEARTLAB MKCKESSON CPACSInterface, External Ris In - 01/22/2021 3:12 PM CDTTransthoracic Echocardiography Report (TTE) Demographics Patient Name CROW KAUR Date ofStudy 01/22/2021 RYAN SR. Gender Male Visit Number [id number] Race Unknown Room Number C823 Number Date of 1975 Referring Jes Ramos NP Physician Age 45 year(s) Loom Tuner Jeffrey Montes [facility] Disabilities Caregiver Olvin Butler Interpreting Physician YUNIER Marks Procedure Type of Study TTE procedure:2DECHO W DOPPLER(CW/PW/COLOR) (STAT) Indications:Eval EF Function.Clinical HistoryESRDHypertension01/11/21 MVR - 31mm SJM Master SeriesHGB 5.4HCT 18.5 %Height: 74 inches Weight: 76.2 kg (168 lbs) BSA: 2.02 m^2 BMI: 21.57kg/m^2HR: 113 bpm BP: 103/68 mmHg Summary 1. LV chamber is small. Severe LVH. All of the LV segmentsare hyperkinetic . LVEF is increased (>70%) . 2. A small posterior pericardial effusion is present . Pericardial hematoma anterior is suspected. 3. A mechanical MV prosthesis is visualized with normal function by Doppler .Mean Gradient: 1.87 mmHg 4. RV chamber size is small . Global RV systolic function is depressed .The RV wall thickness is mildly increased . Previous Study Compared to the previous study there was no significant change. Signature Findings Left Ventricle The left ventricle is chamber size (by PSLAX dimension) is small . Severe concentric LV hypertrophy. All of the LV segments are hyperkinetic . Estimated LVEF by qualitative assessment is increased (>70%) . LV SVI is reduced. Left Atrium LA size is severely enlarged (>48 ml/m2) . Right Ventricle RV chamber size is small . Global RV systolic function is depressed . The RV wall thickness is mildly increased . Right Atrium Right atrium dilated. RA catheter is visualized .Aortic Valve Mild AoV cusp thickening. Mild aortic regurgitation. Mitral Valve A mechanical MV prosthesis is visualized with normal function by Doppler .Mean Gradient: 1.87 mmHg Tricuspid Valve Mild tricuspid regurgitation. Pulmonic Valve PV is not well visualized. Aorta Aortic root size (SInus of Valsalva diameter) is normal . Pericardium A small posterior pericardial effusion is present . Pericardial hematoma anterior is suspected. IVC/SVC/PA/PV/Pleural The estimated RA pressure by IVC dynamics >20mmHg . Chambers/Structures Left Atrium LA Volume: 170.77 ml LA Area: 40.76 cm^2 LA Vol. Index:85 ml/m^2 Left Ventricle LVIDd: 3.38 cm LVEDV:34.81 ml LV Septum Diastolic: 1.77 cm LV PW Diastolic: 1.79 cm LVOT Diameter: 1.76 cm Aorta Ao Root S of Arlen.: 3.03 cm Doppler/Quantitative Measurements Mitral Valve Mean Velocity: 0.62 m/s Mean Gradient: 1.87 mmHg Area (continuity): 1.83 cm^2 MV VTI: 14.57 cm MV Anshul. Peak: 1.09 m/s Aortic Valve Peak Velocity: 1.49 m/s Mean Velocity: 0.94 m/s Peak Gradient: 8.9 mmHg Mean Gradient: 4.3 mmHg AV Area (continuity): 2.14 cm^2 AV VTI: 12.45 cm AV DVI: 0.88 LVOT Peak Velocity: 0.94 m/s Peak Gradient: 3.63 mmHg Mean Velocity: 0.65 m/s Mean Gradient: 1.97 mmHg LVOT Diameter: 1.76 cm LVOT VTI: 10.95 cm LVOT Area: 2.43 cm^2 LVOT SV:26.63 ml LVOT CO: 3.01 l/min LVOT CI: 1.49 l/min/m^2 Tricuspid Valve TR Velocity: 2.68 m/s TR Gradient: 28.64 mmHgSuburban Medical CenterBLOOD GAS, [id number] 15:01:00 Test Item Value Reference Range Interpretation Comments PH ARTERIAL (BEAKER) (test code = 7.40 7.35-7.45 383) PCO2 ARTERIAL (BEAKER) (test code 24 mm Hg 35-45 L = 384) PO2 ARTERIAL (BEAKER) (test code 210 mm Hg 80-90 H = 385) O2 SATURATION ARTERIAL (BEAKER) 99.5 % 96.0-97.0 H (test code = 386) HCO3 ARTERIAL (BEAKER) (test code 14 mmol/L 21-29 L = 388) BASE EXCESS ARTERIAL (BEAKER) -9.7 mmol/L -2.0-3.0 L (test code = 387) PATIENT TEMPERATURE (BEAKER) 35.8 (test code = 1818) FIO2 (BEAKER) (test code = 1819) 60.0 CBC W/PLT COUNT & AUTO [id number] 14:49:00 Test Item Value Reference Range Interpretation Comments WHITE BLOOD CELL COUNT (BEAKER) 34.1 K/ L 3.5-10.5 H (test code = 775) RED BLOOD CELL COUNT (BEAKER) 2.19 M/ L 4.63-6.08 L (test code = 761) HEMOGLOBIN (BEAKER) (test code = 6.5 GM/DL 13.7-17.5 L 410) HEMATOCRIT (BEAKER) (test code = 20.9 % 40.1-51.0 L 411) MEAN CORPUSCULAR VOLUME (BEAKER) 95.4 fL 79.0-92.2 H (test code = 753) MEAN CORPUSCULAR HEMOGLOBIN 29.7 pg 25.7-32.2 (BEAKER) (test code = 751) MEAN CORPUSCULAR HEMOGLOBIN CONC 31.1 GM/DL 32.3-36.5 L (BEAKER) (test code = 752) RED CELL DISTRIBUTION WIDTH 16.2 % 11.6-14.4 H (BEAKER) (test code = 412) PLATELET COUNT (BEAKER) (test 108 K/CU MM 150-450 L code = 756) MEAN PLATELET VOLUME (BEAKER) 10.4 fL 9.4-12.4 (test code = 754) NUCLEATED RED BLOOD CELLS 2 /100 WBC 0-0 H (BEAKER) (test code = 413) (CELLAVISION MANUAL DIFF)2021-01-22 14:49:00 Test Item Value Reference Range Interpretation Comments NEUTROPHILS - REL 83 % (CELLAVISION)(BEAKER) (test code = 2816) LYMPHOCYTES - REL 4 % (CELLAVISION)(BEAKER) (test code = 2817) MONOCYTES - REL 8 % (CELLAVISION)(BEAKER) (test code = 2818) BASOPHILS - REL 1 % (CELLAVISION)(BEAKER) (test code = 2820) METAMYELOCYTES - REL 1 % 0-0 H (CELLAVISION)(BEAKER) (test code = 2821) BANDS - REL (CELLAVISION)(BEAKER) 3 % 0-10 (test code = 2826) NEUTROPHILS - ABS 28.30 K/ul 1.78-5.38 H (CELLAVISION)(BEAKER) (test code = 2830) LYMPHOCYTES - ABS 1.36 K/ul 1.32-3.57 (CELLAVISION)(BEAKER) (test code = 2831) MONOCYTES - ABS 2.73 K/uL 0.30-0.82 H (CELLAVISION)(BEAKER) (test code = 2832) BASOPHILS - ABS 0.34 K/uL 0.01-0.08 H (CELLAVISION)(BEAKER) (test code = 2835) METAMYELOCYTES - ABS 0.34 K/uL 0.00-0.00 H (CELLAVISION)(BEAKER) (test code = 2836) BANDS - ABS (CELLAVISION)(BEAKER) 1.02 K/uL 0.00-0.80 H (test code = 2840) TOTAL COUNTED (BEAKER) (test code 100 = 1351) MANUAL NRBC PER 100 CELLS 3 /100 WBC 0-0 H (BEAKER) (test code = 1353) WBC MORPHOLOGY (BEAKER) (test Normal code = 487) PLT MORPHOLOGY (BEAKER) (test Normal code = 486) POLYCHROMATOPHILLIC RBCS(BEAKER) 1+ few (test code = 478) ANISOCYTOSIS (BEAKER) (test code 1+ few = 961) MACROCYTES (BEAKER) (test code = 1+ few 964) POIKILOCYTES (BEAKER) (test code 2+ moderate = 966) OVALOCYTES (BEAKER) (test code = 1+ few 477) CHIKIS CELLS (BEAKER) (test code = 2+ moderate 474) ARTIFACT (CELLAVISION)(BEAKER) Present (test code = 3432) PLATELET CONCENTRATION Decreased (CELLAVISION)(BEAKER) (test code = 3438) Stock Driver ID - [id number] ID - Dariela OverholtUser comments: Slide comments: LACTIC ACID, [id number] 14:46:00 Test Item Value Reference Range Interpretation Comments LACTATE BLOOD ARTERIAL (2) (BEAKER) > mmol/L 0.5-2.2 HH (test code = 2874) Stock Driver ID - VALDEZ MBLOOD GAS, [id number] 14:45:00 Test Item Value Reference Range Interpretation Comments PH ARTERIAL (BEAKER) (test code 7.35 7.35-7.45 = 383) PCO2 ARTERIAL (BEAKER) (test 23 mm Hg 35-45 L code = 384) PO2 ARTERIAL (BEAKER) (test code 205 mm Hg 80-90 H = 385) O2 SATURATION ARTERIAL (BEAKER) 99.4 % 96.0-97.0 H (test code = 386) HCO3 ARTERIAL (BEAKER) (test 13 mmol/L 21-29 L code = 388) BASE EXCESS ARTERIAL (BEAKER) -11.7 mmol/L -2.0-3.0 L (test code = 387) PATIENT TEMPERATURE (BEAKER) 37.0 (test code = 1818) FIO2 (BEAKER) (test code = 1819) 100.0 POCT-GLUCOSE [id number] 14:33:00 Test Item Value Reference Range Interpretation Comments POC-GLUCOSE METER 139 mg/dL 70-110 H : TESTED A T [facility] 6720 (BEAKER) (test code = [place], 1538) [id number]: Stock Driver/Techni won ID = [id number] for Ob i, Joyce BASIC METABOLIC [id number] 14:30:00 Test Item Value Reference Range Interpretation Comments SODIUM (BEAKER) 141 meq/L 136-145 (test code = 381) POTASSIUM (BEAKER) 4.0 meq/L 3.5-5.1 (test code = 379) CHLORIDE (BEAKER) 105 meq/L 98-107 (test code = 382) CO2 (BEAKER) (test 11 meq/L 22-29 L code = 355) BLOOD UREA NITROGEN 24 mg/dL 7-21 H (BEAKER) (test code = 354) CREATININE (BEAKER) 2.35 mg/dL 0.57-1.25 H (test code = 358) GLUCOSE RANDOM 60 mg/dL 70-105 L (BEAKER) (test code = 652) CALCIUM (BEAKER) 8.9 mg/dL 8.4-10.2 (test code = 697) EGFR (BEAKER) (test 37 mL/min/1.73 ESTIMA ARI GFR IS code = 1092) sq m NOT ACCURATE CREATININE CLEARANCE IN PREDICTING GLOMERULAR FILTRATION RATE . ESTIMATED GFR I S NOT APPLICABLE FOR DIALYSIS PATIEN TS. Stock Driver ID - VALDEZ [id number] 14:30:00 Test Item Value Reference Range Interpretation Comments MAGNESIUM (BEAKER) (test code = 2.0 mg/dL 1.6-2.6 627) Stock Driver ID - VALDEZ [id number] 14:30:00 Test Item Value Reference Range Interpretation Comments PHOSPHORUS (BEAKER) (test code = 5.0 mg/dL 2.3-4.7 H 604) Stock Driver ID - VALDEZ MSODIUM NA-STAT [id number] 14:23:00 Test Item Value Reference Range Interpretation Comments SODIUM (BEAKER) (test code = 381) 138 meq/L 136-145 POTASSIUM-STAT [id number] 14:23:00 Test Item Value Reference Range Interpretation Comments POTASSIUM (BEAKER) (test code = 3.8 meq/L 3.6-5.5 379) CALCIUM, [id number] 14:23:00 Test Item Value Reference Range Interpretation Comments CALCIUM IONIZED (BEAKER) (test 1.18 mmol/L 1.12-1.27 code = 698) PH, BLOOD (BEAKER) (test code = 7.36 1810) GLUCOSE-STAT [id number] 14:23:00 Test Item Value Reference Range Interpretation Comments GLUCOSE RANDOM (BEAKER) (test code = 58 mg/dL 70-110 L 652) HGB/HCT (H&H) - STAT [id number] 14:23:00 Test Item Value Reference Range Interpretation Comments HEMOGLOBIN (BEAKER) (test code = 7.0 GM/DL 13.0-16.8 L 410) HEMATOCRIT (BEAKER) (test code = 21.0 % 40.0-50.0 L 411) OXYGEN SATURATION, [id number] 14:22:00 Test Item Value Reference Range Interpretation Comments O2 SATURATION (MEASURED) (BEAKER) 24.2 % (test code = 1455) [id number] 14:19:00 Test Item Value Reference Range Interpretation Comments PARTIAL THROMBOPLASTIN TIME 59.4 seconds 22.5-36.0 H (BEAKER) (test code = 760) PROTHROMBIN [id number] 14:18:00 Test Item Value Reference Range Interpretation Comments PROTIME (BEAKER) 28.1 seconds 11.9-14.2 H (test code = 759) INR (BEAKER) (test 2.66 See_Comment [Automat ed message] code = 370) The system Umeng generated this result transmitted ref erence range: <=5.90. The reference range was not used to int erpret this result as normal/abnormal . RECOMMENDED COUMADIN/WARFARIN INR THERAPY RANGESSTANDARD DOSE: 2.0 - 3.0 Includes: PROPHYLAXIS forvenous thrombosis, systemic embolization; TREATMENT for venous thrombosis and/or pulmonary embolus.HIGH RISK: Target INR is 2.5-3.5 for patients with mechanical heart valves.[id number] 14:18:00 Test Item Value Reference Range Interpretation Comments FIBRINOGEN LEVEL (BEAKER) (test 237 mg/dl 225-434 code = 658) POCT-GLUCOSE [id number] 14:08:00 Test Item Value Reference Range Interpretation Comments POC-GLUCOSE METER 57 mg/dL 70-110 L : TESTED A T [facility] 6720 (BEAKER) (test code = [facility], 1538) [address]: Stock Driver/Techni won ID = [id number] for Atwo od (V), Anurag POCT-GLUCOSE [id number] 13:35:00 Test Item Value Reference Range Interpretation Comments POC-GLUCOSE METER 66 mg/dL 70-110 L : TESTED A T [facility] 6720 (BEAKER) (test code = [facility], 1538) [address]: Stock Driver/Techni won ID = [id number] for Atwo od (V), Anurag BLOOD GAS, [id number] 12:16:00 Test Item Value Reference Range Interpretation Comments PH ARTERIAL (BEAKER) (test code 7.37 7.35-7.45 = 383) PCO2 ARTERIAL (BEAKER) (test 21 mm Hg 35-45 L code = 384) PO2 ARTERIAL (BEAKER) (test code 209 mm Hg 80-90 H = 385) O2 SATURATION ARTERIAL (BEAKER) 99.4 % 96.0-97.0 H (test code = 386) HCO3 ARTERIAL (BEAKER) (test 12 mmol/L 21-29 L code = 388) BASE EXCESS ARTERIAL (BEAKER) -12.4 mmol/L -2.0-3.0 L (test code = 387) PATIENT TEMPERATURE (BEAKER) 36.4 (test code = 1818) FIO2 (BEAKER) (test code = 1819) 60.0 LACTIC ACID, [id number] 11:59:00 Test Item Value Reference Range Interpretation Comments LACTATE BLOOD ARTERIAL (2) (BEAKER) > mmol/L 0.5-2.2 HH (test code = 2874) Stock Driver ID - VALDEZ MPOCT-GLUCOSE [id number] 11:57:00 Test Item Value Reference Range Interpretation Comments POC-GLUCOSE METER 84 mg/dL 70-110 : TESTED A T [facility] 6720 (BEAKER) (test code = [facility], 1538) 318[address]: Stock Driver/Techni won ID = [id number] for RONAL BROCK POCT-GLUCOSE [id number] 11:31:00 Test Item Value Reference Range Interpretation Comments POC-GLUCOSE METER 222 mg/dL 70-110 H : TESTED A T [facility] 6720 (BEAKER) (test code = [facility], 1538) 99[address]: Stock Driver/Techni won ID = [id number] for Curtis white (Anurag Arevalo POCT-GLUCOSE [id number] 11:29:00 Test Item Value Reference Range Interpretation Comments POC-GLUCOSE METER < mg/dL 70-110 LL : TESTED A T [facility] 6720 (BEAKER) (test code = [facility], 1538) 04778: Stock Driver/Techni won ID = [id number] for RONAL BROCK POCT-GLUCOSE [id number] 11:17:00 Test Item Value Reference Range Interpretation Comments POC-GLUCOSE METER 290 mg/dL 70-110 H : TESTED A T [facility] 6720 (BEAKER) (test code = [facility], 1538) [address]48[address]: Stock Driver/Techni won ID = [id number] for Howard nena Mica POCT-GLUCOSE [id number] 11:14:00 Test Item Value Reference Range Interpretation Comments POC-GLUCOSE METER 45 mg/dL 70-110 L : TESTED A T [facility] 6720 (BEAKER) (test code = [facility], 1538) 717[address]: Stock Driver/Techni won ID = [id number] for Margareth noemíMica ECG 12 [id number] 10:49:43Interface, External Ris In 01/22/2021 10:49 AM CDTVentricular Rate 117 BPMAtrial Rate 141 BPMQRS Duration 104 msQ-T Interval 368 msQTC Calculation(Bazett) 513 msR [place] -10 degreesT [place] 130 degreesAtrial fibrillation with rapid ventricular responseST elevation consider inferior injury or acute infarctAbnormal ECGWhen compared with ECG of 16-JAN-2021 09:23,ST less depressed in Lateral leadsConfirmedby MD MOUNIKA, DELMAR ([id number]) on 01/22/2021 10:49:36 [facility] [id number] 10:49:43 Interface, External Ris In 01/22/2021 10:49 AM CDTVentricular Rate 117 BPMAtrial Rate 141 BPMQRS Duration 104 msQ-T Interval 368 msQTC Calculation(Bazett) 513 msR [place] -10 degreesT [place] 130 degreesAtrial fibrillation with rapid ventricular responseST elevation consider inferior injury or acute infarctAbnormal ECGWhen compared with ECG of 16-JAN-2021 09:23,ST less depressed in Lateral leadsConfirmedevelyn RIBERA MD, RUPA ([id number]) on 01/22/2021 10:49:36 [facility] [id number] 10:49:43 Interface, External Ris In - 01/22/2021 10:49 AM CDTVentricular Rate 117 BPMAtrial Rate 141 BPMQRS Duration 104 msQ-T Interval 368 msQTC Calculation(Bazett) 513 msR [place] -10 degreesT [place] 130 degreesAtrial fibrillation with rapid ventricular responseST elevation consider inferior injury or acute infarctAbnormal ECGWhen compared with ECG of 16-JAN-2021 09:23,ST less depressed in Lateral leadsConfirmedevelyn RIBERA MD, RUPA ([id number]) on 01/22/2021 10:49:36 [facility] [id number] 10:46:00 Test Item Value Reference Range Interpretation Comments GLUCOSE RANDOM (BEAKER) (test code = 14 mg/dL 70-110 LL 652) SODIUM NA-STAT [id number] 10:43:00 Test Item Value Reference Range Interpretation Comments SODIUM (BEAKER) (test code = 381) 139 meq/L 136-145 POTASSIUM-STAT [id number] 10:43:00 Test Item Value Reference Range Interpretation Comments POTASSIUM (BEAKER) (test code = 4.4 meq/L 3.6-5.5 379) OXYGEN SATURATION, [id number] 10:43:00 Test Item Value Reference Range Interpretation Comments O2 SATURATION (MEASURED) (BEAKER) 39.1 % (test code = 1455) HGB/HCT (H&H) - STAT [id number] 10:43:00 Test Item Value Reference Range Interpretation Comments HEMOGLOBIN (BEAKER) (test code = 7.4 GM/DL 13.0-16.8 L 410) HEMATOCRIT (BEAKER) (test code = 22.0 % 40.0-50.0 L 411) [id number] 09:58:00 Test Item Value Reference Range Interpretation Comments PARTIAL THROMBOPLASTIN TIME 100.2 seconds 22.5-36.0 H (BEAKER) (test code = 760) RAD, CHEST, 1 VIEW, NON [id number] 09:56:00Reason for exam:->left chest tube placementShould this be performed at the bedside?->Yes [facility] CENTERName: [facility] : 1975 Sex: MFINAL REPORT Chest, one view. HISTORY: left chest tube placement COM PARISON: Radiograph from yesterday IMPRESSION: Unchanged positioning of the right chest pigtail pleural catheter, endotracheal tube, partially visualized feeding tube, and the right IJ tunneled hemodialysis catheter. Interval placement of a left chest tube. Left lung aeration has slightly improved. Ho wever, there is still a large residual pleural effusion. The cardiac silhouette is obscured but similar to the prior examinations. No acute bone abnormality. Signed: Jerzy Ferrell MDReport Verified Date/Time: 01/22/2021 09:56:49 Reading Location: [address] Body Reading Room LACTIC ACID, [id number] 09:38:00 Test Item Value Reference Range Interpretation Comments LACTATE BLOOD ARTERIAL (2) 11.8 mmol/L 0.5-2.2 HH (BEAKER) (test code = 2874) Stock Driver ID - VALDEZ [id number] 08:42:00 Test Item Value Reference Range Interpretation Comments PARTIAL THROMBOPLASTIN TIME > seconds 22.5-36.0 HH (BEAKER) (test code = 760) BLOOD GAS, [id number] 08:41:00 Test Item Value Reference Range Interpretation Comments PH ARTERIAL (BEAKER) (test code = 7.37 7.35-7.45 383) PCO2 ARTERIAL (BEAKER) (test code 31 mm Hg 35-45 L = 384) PO2 ARTERIAL (BEAKER) (test code 301 mm Hg 80-90 H = 385) O2 SATURATION ARTERIAL (BEAKER) 99.7 % 96.0-97.0 H (test code = 386) HCO3 ARTERIAL (BEAKER) (test code 18 mmol/L 21-29 L = 388) BASE EXCESS ARTERIAL (BEAKER) -7.1 mmol/L -2.0-3.0 L (test code = 387) PATIENT TEMPERATURE (BEAKER) 37.0 (test code = 1818) FIO2 (BEAKER) (test code = 1819) 100.0 HGB/HCT (H&H) - STAT [id number] 08:31:00 Test Item Value Reference Range Interpretation Comments HEMOGLOBIN (BEAKER) (test code = 6.0 GM/DL 13.0-16.8 LL 410) HEMATOCRIT (BEAKER) (test code = 18.0 % 40.0-50.0 L 411) GLUCOSE-STAT [id number] 08:21:00 Test Item Value Reference Range Interpretation Comments GLUCOSE RANDOM (BEAKER) (test code = 75 mg/dL 70-110 652) SODIUM NA-STAT [id number] 08:21:00 Test Item Value Reference Range Interpretation Comments SODIUM (BEAKER) (test code = 381) 136 meq/L 136-145 POTASSIUM-STAT [id number] 08:21:00 Test Item Value Reference Range Interpretation Comments POTASSIUM (BEAKER) (test code = 4.0 meq/L 3.6-5.5 379) OXYGEN SATURATION, [id number] 08:21:00 Test Item Value Reference Range Interpretation Comments O2 SATURATION (MEASURED) (BEAKER) 38.7 % (test code = 1455) RAD, CHEST, 1 VIEW, NON [id number] 07:21:00Reason for exam:->s/p code, intubationShould this be performed at the bedside?->Yes [facility] : 1975 Sex: MFINAL REPORT RAD, CHEST, 1 VIEW, NON DEPT INDICATION: s/p code, intub ation COMPARISON: Prior day's exam FINDINGS: Portable frontal view of the chest. IMPRESSION: Support Lines: Right pleural catheter. This catheter tip overlies the atriocaval junction. Feeding tube descends below the diaphragm. ET tube tip is 2 cm superior to the nitin Lungs and pleura: Unchanged opacification of the left hemithorax. No pneumothorax.Heart and mediastinum: Stable contours.Additional findings: None. Signed: Re Cantu MDReport Verified Date/Time: 01/22/2021 07:21:40 Reading Location: [address] Neuro Reading Room HEMOGLOBIN AND [id number] 07:19:00 Test Item Value Reference Range Interpretation Comments HEMOGLOBIN (BEAKER) (test code = 5.4 GM/DL 13.7-17.5 LL 410) HEMATOCRIT (BEAKER) (test code = 18.5 % 40.1-51.0 L 411) Stock Driver ID - [id number] ID - [id number] ID - [id number] Natriuretic Factor (BNP)2021-01-22 07:17:00 Test Item Value Reference Range Interpretation Comments BNP (test code = 40578-4) 2620 pg/mL 0-100 H CARLEY (test code = CARLEY) Stock Driver ID - VALDEZ M Lab Interpretation (test Abnormal code = 56817-5) [facility]22 07:17:00 Test Item Value Reference Range Interpretation Comments BNP (test code = 89784-0) 2620 pg/mL 0-100 H ACRLEY (test code = CARLEY) Stock Driver ID - VALDEZ M Lab Interpretation (test Abnormal code = 51263-6) [facility]2021-01-22 07:17:00 Test Item Value Reference Range Interpretation Comments BNP (test code = 64010-9) 2620 pg/mL 0-100 H CARLEY (test code = CARLEY) Stock Driver ID - VALDEZ M Lab Interpretation (test Abnormal code = 32910-8) [facility] ([facility]NP[facility]2021-01-22 07:17:00 Test Item Value Reference Range Interpretation Comments B-TYPE NATRIURETIC PEPTIDE 2620 pg/mL 0-100 H (BEAKER) (test code = 700) Stock Driver ID - VALDEZ [id number] 07:16:00 Test Item Value Reference Range Interpretation Comments PARTIAL THROMBOPLASTIN TIME > seconds 22.5-36.0 HH (BEAKER) (test code = 760) BASIC METABOLIC [id number] 07:11:00 Test Item Value Reference Range Interpretation Comments SODIUM (BEAKER) 143 meq/L 136-145 (test code = 381) POTASSIUM (BEAKER) 3.3 meq/L 3.5-5.1 L (test code = 379) CHLORIDE (BEAKER) 106 meq/L 98-107 (test code = 382) CO2 (BEAKER) (test 16 meq/L 22-29 L code = 355) BLOOD UREA NITROGEN 21 mg/dL 7-21 (BEAKER) (test code = 354) CREATININE (BEAKER) 2.19 mg/dL 0.57-1.25 H (test code = 358) GLUCOSE RANDOM 90 mg/dL 70-105 (BEAKER) (test code = 652) CALCIUM (BEAKER) 9.5 mg/dL 8.4-10.2 (test code = 697) EGFR (BEAKER) (test 40 mL/min/1.73 ESTIMA ARI GFR IS code = 1092) sq m NOT ACCURATE CREATININE CLEARANCE IN PREDICTING GLOMERULAR FILTRATION RATE . ESTIMATED GFR I S NOT APPLICABLE FOR DIALYSIS PATIEN TS. Stock Driver ID - VALDEZ [id number] 07:10:00 Test Item Value Reference Range Interpretation Comments MAGNESIUM (BEAKER) (test code = 2.1 mg/dL 1.6-2.6 627) Stock Driver ID - VALDEZ [id number] 07:10:00 Test Item Value Reference Range Interpretation Comments PHOSPHORUS (BEAKER) (test code = 7.0 mg/dL 2.3-4.7 H 604) Stock Driver ID - VALDEZ MHEPATIC FUNCTION [id number] 07:10:00 Test Item Value Reference Range Interpretation Comments TOTAL PROTEIN (BEAKER) (test code = 4.7 gm/dL 6.0-8.3 L 770) ALBUMIN (BEAKER) (test code = 1145) 2.1 g/dL 3.5-5.0 L BILIRUBIN TOTAL (BEAKER) (test code 0.9 mg/dL 0.2-1.2 = 377) BILIRUBIN DIRECT (BEAKER) (test 0.7 mg/dL 0.1-0.5 H code = 706) ALKALINE PHOSPHATASE (BEAKER) (test 107 U/L 40-150 code = 346) AST (SGOT) (BEAKER) (test code = 133 U/L 5-34 H 353) ALT (SGPT) (BEAKER) (test code = 261 U/L 6-55 H 347) Stock Driver ID - VALDEZ MLACTIC ACID, [id number] 07:09:00 Test Item Value Reference Range Interpretation Comments LACTATE BLOOD ARTERIAL (2) 12.6 mmol/L 0.5-2.2 HH (BEAKER) (test code = 2874) Stock Driver ID - VALDEZ MPROTHROMBIN TIME/[id number] 07:02:00 Test Item Value Reference Range Interpretation Comments PROTIME (BEAKER) 22.6 seconds 11.9-14.2 H (test code = 759) INR (BEAKER) (test 2.01 See_Comment [Automat ed message] code = 370) The system Umeng generated this result transmitted ref erence range: <=5.90. The reference range was not used to int erpret this result as normal/abnormal . RECOMMENDED COUMADIN/WARFARIN INR THERAPY RANGESSTANDARD DOSE: 2.0 - 3.0 Includes: PROPHYLAXIS forvenous thrombosis, systemic embolization; TREATMENT for venous thrombosis and/or pulmonary embolus.HIGH RISK: Target INR is 2.5-3.5 for patients with mechanical heart valves.[id number] 07:02:00 Test Item Value Reference Range Interpretation Comments FIBRINOGEN LEVEL (BEAKER) (test 306 mg/dl 225-434 code = 658) CALCIUM, [id number] 06:48:00 Test Item Value Reference Range Interpretation Comments CALCIUM IONIZED (BEAKER) (test 1.34 mmol/L 1.12-1.27 H code = 698) PH, BLOOD (BEAKER) (test code = 7.30 1810) BLOOD GAS, [id number] 06:47:00 Test Item Value Reference Range Interpretation Comments PH ARTERIAL (BEAKER) (test code = 7.31 7.35-7.45 L 383) PCO2 ARTERIAL (BEAKER) (test code 34 mm Hg 35-45 L = 384) PO2 ARTERIAL (BEAKER) (test code 334 mm Hg 80-90 H = 385) O2 SATURATION ARTERIAL (BEAKER) 99.7 % 96.0-97.0 H (test code = 386) HCO3 ARTERIAL (BEAKER) (test code 17 mmol/L 21-29 L = 388) BASE EXCESS ARTERIAL (BEAKER) -8.8 mmol/L -2.0-3.0 L (test code = 387) PATIENT TEMPERATURE (BEAKER) 36.1 (test code = 1818) FIO2 (BEAKER) (test code = 1819) 100.0 OXYGEN SATURATION, [id number] 06:47:00 Test Item Value Reference Range Interpretation Comments O2 SATURATION (MEASURED) (BEAKER) 48.0 % (test code = 1455) CBC W/PLT COUNT & AUTO [id number] 03:53:00 Test Item Value Reference Range Interpretation Comments WHITE BLOOD CELL COUNT (BEAKER) 15.4 K/ L 3.5-10.5 H (test code = 775) RED BLOOD CELL COUNT (BEAKER) 2.39 M/ L 4.63-6.08 L (test code = 761) HEMOGLOBIN (BEAKER) (test code = 6.8 GM/DL 13.7-17.5 L 410) HEMATOCRIT (BEAKER) (test code = 22.3 % 40.1-51.0 L 411) MEAN CORPUSCULAR VOLUME (BEAKER) 93.3 fL 79.0-92.2 H (test code = 753) MEAN CORPUSCULAR HEMOGLOBIN 28.5 pg 25.7-32.2 (BEAKER) (test code = 751) MEAN CORPUSCULAR HEMOGLOBIN CONC 30.5 GM/DL 32.3-36.5 L (BEAKER) (test code = 752) RED CELL DISTRIBUTION WIDTH 16.5 % 11.6-14.4 H (BEAKER) (test code = 412) PLATELET COUNT (BEAKER) (test 125 K/CU MM 150-450 L code = 756) MEAN PLATELET VOLUME (BEAKER) 10.6 fL 9.4-12.4 (test code = 754) NUCLEATED RED BLOOD CELLS 2 /100 WBC 0-0 H (BEAKER) (test code = 413) NEUTROPHILS RELATIVE PERCENT 82 % (BEAKER) (test code = 429) LYMPHOCYTES RELATIVE PERCENT 4 % (BEAKER) (test code = 430) MONOCYTES RELATIVE PERCENT 8 % (BEAKER) (test code = 431) EOSINOPHILS RELATIVE PERCENT 0 % (BEAKER) (test code = 432) BASOPHILS RELATIVE PERCENT 0 % (BEAKER) (test code = 437) NEUTROPHILS ABSOLUTE COUNT 12.68 K/ L 1.78-5.38 H (BEAKER) (test code = 670) LYMPHOCYTES ABSOLUTE COUNT 0.61 K/ L 1.32-3.57 L (BEAKER) (test code = 414) MONOCYTES ABSOLUTE COUNT (BEAKER) 1.21 K/ L 0.30-0.82 H (test code = 415) EOSINOPHILS ABSOLUTE COUNT 0.02 K/ L 0.04-0.54 L (BEAKER) (test code = 416) BASOPHILS ABSOLUTE COUNT (BEAKER) 0.05 K/ L 0.01-0.08 (test code = 417) IMMATURE GRANULOCYTES-RELATIVE 5 % 0-1 H PERCENT (BEAKER) (test code = 2801) PROTHROMBIN [id number] 03:47:00 Test Item Value Reference Range Interpretation Comments PROTIME (BEAKER) 16.4 seconds 11.9-14.2 H (test code = 759) INR (BEAKER) (test 1.34 See_Comment [Automat ed message] code = 370) The system Umeng generated this result transmitted ref erence range: <=5.90. The reference range was not used to int erpret this result as normal/abnormal . RECOMMENDED COUMADIN/WARFARIN INR THERAPY RANGESSTANDARD DOSE: 2.0 - 3.0 Includes: PROPHYLAXIS forvenous thrombosis, systemic embolization; TREATMENT for venous thrombosis and/or pulmonary embolus.HIGH RISK: Target INR is 2.5-3.5 for patients with mechanical heart valves.LACTIC ACID, [id number] 03:35:00 Test Item Value Reference Range Interpretation Comments LACTATE BLOOD ARTERIAL (2) 8.3 mmol/L 0.5-2.2 HH (BEAKER) (test code = 2874) Stock Driver ID - VALDEZ [id number] 03:06:00 Test Item Value Reference Range Interpretation Comments MAGNESIUM (BEAKER) 2.2 mg/dL 1.6-2.6 Specimen slightly (test code = 627) hemolyzed Stock Driver ID - VALDEZ [id number] 03:06:00 Test Item Value Reference Range Interpretation Comments PHOSPHORUS (BEAKER) 4.7 mg/dL 2.3-4.7 Specimen slightly (test code = 604) hemolyzed Stock Driver ID - VALDEZ MBASIC METABOLIC [id number] 03:06:00 Test Item Value Reference Range Interpretation Comments SODIUM (BEAKER) 136 meq/L 136-145 (test code = 381) POTASSIUM (BEAKER) 4.5 meq/L 3.5-5.1 Specimen slightly (test code = 379) hemolyzed CHLORIDE (BEAKER) 105 meq/L 98-107 (test code = 382) CO2 (BEAKER) (test 16 meq/L 22-29 L code = 355) BLOOD UREA NITROGEN 17 mg/dL 7-21 (BEAKER) (test code = 354) CREATININE (BEAKER) 1.81 mg/dL 0.57-1.25 H Specimen slightly (test code = 358) hemolyzed GLUCOSE RANDOM 164 mg/dL 70-105 H (BEAKER) (test code = 652) CALCIUM (BEAKER) 8.1 mg/dL 8.4-10.2 L (test code = 697) EGFR (BEAKER) (test 50 mL/min/1.73 ESTIMA ARI GFR IS code = 1092) sq m NOT ACCURATE CREATININE CLEARANCE IN PREDICTING GLOMERULAR FILTRATION RATE . ESTIMATED GFR I S NOT APPLICABLE FOR DIALYSIS PATIEN TS. Stock Driver ID - VALDEZ MCALCIUM, [id number] 02:59:00 Test Item Value Reference Range Interpretation Comments CALCIUM IONIZED (BEAKER) (test 1.21 mmol/L 1.12-1.27 code = 698) PH, BLOOD (BEAKER) (test code = 7.37 1810) BLOOD GAS, [id number] 02:59:00 Test Item Value Reference Range Interpretation Comments PH ARTERIAL (BEAKER) (test code = 7.38 7.35-7.45 383) PCO2 ARTERIAL (BEAKER) (test code 31 mm Hg 35-45 L = 384) PO2 ARTERIAL (BEAKER) (test code 103 mm Hg 80-90 H = 385) O2 SATURATION ARTERIAL (BEAKER) 98.0 % 96.0-97.0 H (test code = 386) HCO3 ARTERIAL (BEAKER) (test code 18 mmol/L 21-29 L = 388) BASE EXCESS ARTERIAL (BEAKER) -6.4 mmol/L -2.0-3.0 L (test code = 387) PATIENT TEMPERATURE (BEAKER) 35.8 (test code = 1818) FIO2 (BEAKER) (test code = 1819) 36.0 OXYGEN SATURATION, [id number] 02:58:00 Test Item Value Reference Range Interpretation Comments O2 SATURATION (MEASURED) (BEAKER) 30.2 % (test code = 1455) [id number] 02:09:00 Test Item Value Reference Range Interpretation Comments PARTIAL THROMBOPLASTIN TIME 64.2 seconds 22.5-36.0 H (BEAKER) (test code = 760) RAD, CHEST, 1 VIEW, NON [id number] 01:42:00Reason for exam:->chest tubes, s/p cardiac surgeryShould this be performed at the bedside?->Yes [facility] : 1975 Sex: MFINAL REPORT EXAM/TECHNIQUE: Single view frontal radiograph of the est. INDICATION: Chest tubes, status post cardiac surgery. COMPARISON: Chest radiography from 01/21/2021. FINDINGS: Devices/Objects: Right internal jugular central venous catheter terminates in the upper right atrium. Status post aortic valve placement. Feeding tube course below the diaphragm terminates below ifqow-[id number]. Right chest tube is present. Lungs: Substantial increase in left pulmonary opacity and pleural effusion. Similar right basilar predominant pulmonary opacities. Heart/Mediastinum:Unchanged cardiomegaly. No interstitial thickening. Osseous: No acute osseous process. No suspiciousosseous lesion. Upper abdomen: Unremarkable. Impression: Substantial increase in left pleural effusion and pulmonary opacity. Signed: Philipp Booker MDReport Verified Date/Time: 01/22/2021 01:42:05 [id number] 23:19:00 Test Item Value Reference Range Interpretation Comments PARTIAL THROMBOPLASTIN TIME 113.7 seconds 22.5-36.0 H (BEAKER) (test code = 760) HEMOGLOBIN AND [id number] 22:54:00 Test Item Value Reference Range Interpretation Comments HEMOGLOBIN (BEAKER) (test code = 8.1 GM/DL 13.7-17.5 L 410) HEMATOCRIT (BEAKER) (test code = 26.2 % 40.1-51.0 L 411) Stock Driver ID - [id number] METABOLIC [id number] 22:17:00 Test Item Value Reference Range Interpretation Comments SODIUM (BEAKER) 134 meq/L 136-145 L (test code = 381) POTASSIUM (BEAKER) 3.8 meq/L 3.5-5.1 (test code = 379) CHLORIDE (BEAKER) 103 meq/L 98-107 (test code = 382) CO2 (BEAKER) (test 23 meq/L 22-29 code = 355) BLOOD UREA NITROGEN 17 mg/dL 7-21 (BEAKER) (test code = 354) CREATININE (BEAKER) 1.84 mg/dL 0.57-1.25 H (test code = 358) GLUCOSE RANDOM 133 mg/dL 70-105 H (BEAKER) (test code = 652) CALCIUM (BEAKER) 8.9 mg/dL 8.4-10.2 (test code = 697) EGFR (BEAKER) (test 49 mL/min/1.73 ESTIMA ARI GFR IS code = 1092) sq m NOT ACCURATE CREATININE CLEARANCE IN PREDICTING GLOMERULAR FILTRATION RATE . ESTIMATED GFR I S NOT APPLICABLE FOR DIALYSIS PATIEN TS. Stock Driver ID - [id number] 22:17:00 Test Item Value Reference Range Interpretation Comments MAGNESIUM (BEAKER) (test code = 2.0 mg/dL 1.6-2.6 627) Stock Driver ID - [id number] 22:17:00 Test Item Value Reference Range Interpretation Comments PHOSPHORUS (BEAKER) (test code = 2.8 mg/dL 2.3-4.7 604) Stock Driver ID - DBPOCT-GLUCOSE [id number] 21:52:00 Test Item Value Reference Range Interpretation Comments POC-GLUCOSE METER 133 mg/dL 70-110 H : [facility] (test code = NORM Tenorio [facility], 1538) [address]: Stock Driver/Techni won ID = [id number] for VINOD CHAUDHARY Blood Culture - Routine (Left Venipuncture)2021-01-21 20:00:00 Test Item Value Reference Range Interpretation Comments Result (test code = No growth in 5 days 6463-4) [facility]-21 20:00:00 Test Item Value Reference Range Interpretation Comments Result (test code = No growth in 5 days 6463-4) [facility] 2021-01-21 20:00:00 Test Item Value Reference Range Interpretation Comments Result (test code = No growth in 5 days 6463-4) [id number] Test Item Value Reference Range Interpretation Comments CULTURE (BEAKER) (test No growth in 5 days code = 1095) BLOOD [id number] 20:00:00 Test Item Value Reference Range Interpretation Comments CULTURE (BEAKER) (test No growth in 5 days code = 1095) BLOOD GAS, [id number] 19:08:00 Test Item Value Reference Range Interpretation Comments PH ARTERIAL (BEAKER) (test code = 7.45 7.35-7.45 383) PCO2 ARTERIAL (BEAKER) (test code 40 mm Hg 35-45 = 384) PO2 ARTERIAL (BEAKER) (test code = 106 mm Hg 80-90 H 385) O2 SATURATION ARTERIAL (BEAKER) 98.2 % 96.0-97.0 H (test code = 386) HCO3 ARTERIAL (BEAKER) (test code 27 mmol/L 21-29 = 388) BASE EXCESS ARTERIAL (BEAKER) 3.0 mmol/L -2.0-3.0 (test code = 387) PATIENT TEMPERATURE (BEAKER) (test 36.4 code = 1818) FIO2 (BEAKER) (test code = 1819) 36.0 POCT-GLUCOSE [id number] 18:34:00 Test Item Value Reference Range Interpretation Comments POC-GLUCOSE METER 110 mg/dL 70-110 : TESTED A T [facility] 6720 (BEAKER) (test code = NORM [place], 1538) [address]: Stock Driver/Techni won ID = [id number] for RONAL PEREZ [id number] 17:37:00 Test Item Value Reference Range Interpretation Comments PROTIME (BEAKER) (test 14.8 seconds 11.9-14.2 H code = 759) INR (BEAKER) (test 1.18 See_Comment [Automat ed code = 370) message] The sy stem which generated this result transmitted reference range : <=5.90. The reference range was not used to interpret this result as normal/abnormal . PARTIAL THROMBOPLASTIN 95.6 seconds 22.5-36.0 H TIME (BEAKER) (test code = 760) RECOMMENDED COUMADIN/WARFARIN INR THERAPY RANGESSTANDARD DOSE: 2.0 - 3.0 Includes: PROPHYLAXIS forvenous thrombosis, systemic embolization; TREATMENT for venous thrombosis and/or pulmonary embolus.HIGH RISK: Target INR is 2.5-3.5 for patients with mechanical heart valves.[id number] 12:20:00 Test Item Value Reference Range Interpretation Comments PROTIME (BEAKER) (test 15.0 seconds 11.9-14.2 H code = 759) INR (BEAKER) (test 1.20 See_Comment [Automat ed code = 370) message] The sy stem which generated this result transmitted reference range : <=5.90. The reference range was not used to interpret this result as normal/abnormal . PARTIAL THROMBOPLASTIN 68.4 seconds 22.5-36.0 H TIME (BEAKER) (test code = 760) RECOMMENDED COUMADIN/WARFARIN INR THERAPY RANGESSTANDARD DOSE: 2.0 - 3.0 Includes: PROPHYLAXIS forvenous thrombosis, systemic embolization; TREATMENT for venous thrombosis and/or pulmonary embolus.HIGH RISK: Target INR is 2.5-3.5 for patients with mechanical heart valves.POCT-GLUCOSE [id number] 12:19:00 Test Item Value Reference Range Interpretation Comments POC-GLUCOSE METER 79 mg/dL 70-110 : TESTED A T [facility] 6720 (BEAKER) (test code = NORM Tam [facility], 1538) [address]: Stock Driver/Techni won ID = [id number] for RONAL BROCK BLOOD GAS, [id number] 12:04:00 Test Item Value Reference Range Interpretation Comments PH ARTERIAL (BEAKER) (test code = 7.42 7.35-7.45 383) PCO2 ARTERIAL (BEAKER) (test code 45 mm Hg 35-45 = 384) PO2 ARTERIAL (BEAKER) (test code = 164 mm Hg 80-90 H 385) O2 SATURATION ARTERIAL (BEAKER) 99.1 % 96.0-97.0 H (test code = 386) HCO3 ARTERIAL (BEAKER) (test code 29 mmol/L 21-29 = 388) BASE EXCESS ARTERIAL (BEAKER) 3.7 mmol/L -2.0-3.0 H (test code = 387) PATIENT TEMPERATURE (BEAKER) (test 36.4 code = 1818) FIO2 (BEAKER) (test code = 1819) 40.0 [id number] 10:02:00 Test Item Value Reference Range Interpretation Comments MAGNESIUM (BEAKER) 2.3 mg/dL 1.6-2.6 Specimen moderately (test code = 627) hemolyzed Stock Driver ID - [id number] 10:02:00 Test Item Value Reference Range Interpretation Comments PHOSPHORUS (BEAKER) 3.0 mg/dL 2.3-4.7 Specimen moderately (test code = 604) hemolyzed Stock Driver ID - [id number] 10:02:00 Test Item Value Reference Range Interpretation Comments POTASSIUM (BEAKER) 4.3 meq/L 3.5-5.1 Specimen moderately (test code = 379) hemolyzed Stock Driver ID - BSPOCT-GLUCOSE [id number] 08:50:00 Test Item Value Reference Range Interpretation Comments POC-GLUCOSE METER 123 mg/dL 70-110 H : [facility] ([facility]ER[facility] (test code = NORM [place], 1538) [address]: Stock Driver/Techni won ID = [id number] for LACY Dyson RONAL pH, [id number] 08:34:00 Test Item Value Reference Range Interpretation Comments pH, Arterial (test code = 2744-1) 7.44 7.35-7.45 Lab Interpretation (test code = Normal 99392-7) [facility], [id number] 08:34:00 Test Item Value Reference Range Interpretation Comments pH, Arterial (test code = 2744-1) 7.44 7.35-7.45 Lab Interpretation (test code = Normal 98547-9) [facility], [id number] 08:34:00 Test Item Value Reference Range Interpretation Comments pH, Arterial (test code = 2744-1) 7.44 7.35-7.45 Lab Interpretation (test code = Normal 90352-3) [facility], [id number] 08:34:00 Test Item Value Reference Range Interpretation Comments PH ARTERIAL (BEAKER) (test code = 383) 7.44 7.35-7.45 RAD, CHEST, 1 VIEW, NON [id number] 07:58:00Reason for exam:->chest tubes, s/p cardiac surgeryShould this be performed at the bedside?->Yes [facility] : 1975 Sex: MFINAL REPORT Chest, one view. HISTORY: chest tubes, s/p cardiac surge ry COMPARISON: Radiograph from yesterday IMPRESSION: Interval insertion of a right IJ tunneled hemodialysis catheter with the tip over the high right atrium. Interval removal of the left IJ central venous catheter. Or removal of the left chest tube. Otherwise, the support lines and tubes are unchanged in position. The interstitial opacities of lungs have slightly decreased, but there is residual interstitial pulmonary edema. The small left pleural effusion is unchanged. No pneumothorax. There is likely a trace amount of effusion in the left apex. The cardiac silhouette is unchanged in size. No acute bone abnormality. Signed: Jerzy Ferrell MDReport Verified Date/Time: 01/21/2021 07:58:34 Reading Location: [facility] C013Y CT Body Reading Room BASIC METABOLIC PANEL 2021-01-21 05:44:00 Test Item Value Reference Range Interpretation Comments SODIUM (BEAKER) 136 meq/L 136-145 (test code = 381) POTASSIUM (BEAKER) 3.6 meq/L 3.5-5.1 (test code = 379) CHLORIDE (BEAKER) 104 meq/L 98-107 (test code = 382) CO2 (BEAKER) (test 24 meq/L 22-29 code = 355) BLOOD UREA NITROGEN 17 mg/dL 7-21 (BEAKER) (test code = 354) CREATININE (BEAKER) 1.87 mg/dL 0.57-1.25 H (test code = 358) GLUCOSE RANDOM 108 mg/dL 70-105 H (BEAKER) (test code = 652) CALCIUM (BEAKER) 8.3 mg/dL 8.4-10.2 L (test code = 697) EGFR (BEAKER) (test 48 mL/min/1.73 ESTIMA ARI GFR IS code = 1092) sq m NOT ACCURATE CREATININE CLEARANCE IN PREDICTING GLOMERULAR FILTRATION RATE . ESTIMATED GFR I S NOT APPLICABLE FOR DIALYSIS PATIEN TS. Stock Driver ID - VALDEZ [id number] 05:44:00 Test Item Value Reference Range Interpretation Comments MAGNESIUM (BEAKER) (test code = 2.2 mg/dL 1.6-2.6 627) Stock Driver ID - VALDEZ MHEPATIC FUNCTION [id number] 05:44:00 Test Item Value Reference Range Interpretation Comments TOTAL PROTEIN (BEAKER) (test code = 5.7 gm/dL 6.0-8.3 L 770) ALBUMIN (BEAKER) (test code = 1145) 2.2 g/dL 3.5-5.0 L BILIRUBIN TOTAL (BEAKER) (test code 1.0 mg/dL 0.2-1.2 = 377) BILIRUBIN DIRECT (BEAKER) (test 0.7 mg/dL 0.1-0.5 H code = 706) ALKALINE PHOSPHATASE (BEAKER) (test 130 U/L 40-150 code = 346) AST (SGOT) (BEAKER) (test code = 206 U/L 5-34 H 353) ALT (SGPT) (BEAKER) (test code = 476 U/L 6-55 H 347) Stock Driver ID - VALDEZ [id number] 03:57:00 Test Item Value Reference Range Interpretation Comments PARTIAL THROMBOPLASTIN TIME 86.2 seconds 22.5-36.0 H (BEAKER) (test code = 760) PROTHROMBIN [id number] 03:56:00 Test Item Value Reference Range Interpretation Comments PROTIME (BEAKER) 14.6 seconds 11.9-14.2 H (test code = 759) INR (BEAKER) (test 1.16 See_Comment [Automat ed message] code = 370) The system Umeng generated this result transmitted ref erence range: <=5.90. The reference range was not used to int erpret this result as normal/abnormal . RECOMMENDED COUMADIN/WARFARIN INR THERAPY RANGESSTANDARD DOSE: 2.0 - 3.0 Includes: PROPHYLAXIS forvenous thrombosis, systemic embolization; TREATMENT for venous thrombosis and/or pulmonary embolus.HIGH RISK: Target INR is 2.5-3.5 for patients with mechanical heart valves.CBC W/PLT COUNT & AUTO DIFFERENTIAL 2021-01-21 03:54:00 Test Item Value Reference Range Interpretation Comments WHITE BLOOD CELL COUNT (BEAKER) 11.6 K/ L 3.5-10.5 H (test code = 775) RED BLOOD CELL COUNT (BEAKER) 2.95 M/ L 4.63-6.08 L (test code = 761) HEMOGLOBIN (BEAKER) (test code = 8.4 GM/DL 13.7-17.5 L 410) HEMATOCRIT (BEAKER) (test code = 26.7 % 40.1-51.0 L 411) MEAN CORPUSCULAR VOLUME (BEAKER) 90.5 fL 79.0-92.2 (test code = 753) MEAN CORPUSCULAR HEMOGLOBIN 28.5 pg 25.7-32.2 (BEAKER) (test code = 751) MEAN CORPUSCULAR HEMOGLOBIN CONC 31.5 GM/DL 32.3-36.5 L (BEAKER) (test code = 752) RED CELL DISTRIBUTION WIDTH 16.2 % 11.6-14.4 H (BEAKER) (test code = 412) PLATELET COUNT (BEAKER) (test 130 K/CU MM 150-450 L code = 756) MEAN PLATELET VOLUME (BEAKER) 10.0 fL 9.4-12.4 (test code = 754) NUCLEATED RED BLOOD CELLS 0 /100 WBC 0-0 (BEAKER) (test code = 413) NEUTROPHILS RELATIVE PERCENT 82 % (BEAKER) (test code = 429) LYMPHOCYTES RELATIVE PERCENT 5 % (BEAKER) (test code = 430) MONOCYTES RELATIVE PERCENT 9 % (BEAKER) (test code = 431) EOSINOPHILS RELATIVE PERCENT 1 % (BEAKER) (test code = 432) BASOPHILS RELATIVE PERCENT 1 % (BEAKER) (test code = 437) NEUTROPHILS ABSOLUTE COUNT 9.46 K/ L 1.78-5.38 H (BEAKER) (test code = 670) LYMPHOCYTES ABSOLUTE COUNT 0.60 K/ L 1.32-3.57 L (BEAKER) (test code = 414) MONOCYTES ABSOLUTE COUNT (BEAKER) 1.05 K/ L 0.30-0.82 H (test code = 415) EOSINOPHILS ABSOLUTE COUNT 0.06 K/ L 0.04-0.54 (BEAKER) (test code = 416) BASOPHILS ABSOLUTE COUNT (BEAKER) 0.07 K/ L 0.01-0.08 (test code = 417) IMMATURE GRANULOCYTES-RELATIVE 3 % 0-1 H PERCENT (BEAKER) (test code = 2801) BLOOD GAS, [id number] 03:43:00 Test Item Value Reference Range Interpretation Comments PH ARTERIAL (BEAKER) (test code = 7.43 7.35-7.45 383) PCO2 ARTERIAL (BEAKER) (test code 41 mm Hg 35-45 = 384) PO2 ARTERIAL (BEAKER) (test code = 155 mm Hg 80-90 H 385) O2 SATURATION ARTERIAL (BEAKER) 99.1 % 96.0-97.0 H (test code = 386) HCO3 ARTERIAL (BEAKER) (test code 27 mmol/L 21-29 = 388) BASE EXCESS ARTERIAL (BEAKER) 2.3 mmol/L -2.0-3.0 (test code = 387) PATIENT TEMPERATURE (BEAKER) (test 36.8 code = 1818) FIO2 (BEAKER) (test code = 1819) 40.0 CALCIUM, [id number] 03:42:00 Test Item Value Reference Range Interpretation Comments CALCIUM IONIZED (BEAKER) (test 1.22 mmol/L 1.12-1.27 code = 698) PH, BLOOD (BEAKER) (test code = 7.43 1810) POCT-GLUCOSE [id number] 00:09:00 Test Item Value Reference Range Interpretation Comments POC-GLUCOSE METER 103 mg/dL 70-110 : [facility] ([facility] (test code = [place], 1538) [address]: Stock Driver/Techni won ID = [id number] for MARITZA LAURABRYLACYY [id number] 22:06:00 Test Item Value Reference Range Interpretation Comments MAGNESIUM (BEAKER) 2.0 mg/dL 1.6-2.6 Specimen slightly (test code = 627) hemolyzed Stock Driver ID - [id number] 22:06:00 Test Item Value Reference Range Interpretation Comments PHOSPHORUS (BEAKER) 3.4 mg/dL 2.3-4.7 Specimen slightly (test code = 604) hemolyzed Stock Driver ID - [id number] 22:06:00 Test Item Value Reference Range Interpretation Comments POTASSIUM (BEAKER) 3.9 meq/L 3.5-5.1 Specimen slightly (test code = 379) hemolyzed Stock Driver ID - BSPH, [id number] 21:48:00 Test Item Value Reference Range Interpretation Comments PH ARTERIAL (BEAKER) (test code = 383) 7.44 7.35-7.45 [id number] 18:35:00 Test Item Value Reference Range Interpretation Comments POTASSIUM (BEAKER) 3.8 meq/L 3.5-5.1 Specimen slightly (test code = 379) hemolyzed Stock Driver ID - ADMINPOCT-GLUCOSE [id number] 18:20:00 Test Item Value Reference Range Interpretation Comments POC-GLUCOSE METER 92 mg/dL 70-110 : TESTED A T [facility] 6720 (BEAKER) (test code = [facility] [employer] [facility], 1538) [address]: Stock Driver/Techni won ID = [id number] for RONAL BROCK [id number] 13:41:00 Test Item Value Reference Range Interpretation Comments POTASSIUM (BEAKER) 4.1 meq/L 3.5-5.1 Specimen slightly (test code = 379) hemolyzed Stock Driver ID - ADMINPOCT-GLUCOSE [id number] 11:57:00 Test Item Value Reference Range Interpretation Comments POC-GLUCOSE METER 91 mg/dL 70-110 : TESTED A T [facility] 6720 (BEAKER) (test code = [facility] [employer] [facility], 1538) [address]: Stock Driver/Techni won ID = [id number] for RONAL BROCK [id number] 10:33:00 Test Item Value Reference Range Interpretation Comments MAGNESIUM (BEAKER) (test code = 2.3 mg/dL 1.6-2.6 627) Stock Driver ID - [id number] 10:33:00 Test Item Value Reference Range Interpretation Comments PHOSPHORUS (BEAKER) (test code = 3.2 mg/dL 2.3-4.7 604) Stock Driver ID - [id number] 09:38:00 Test Item Value Reference Range Interpretation Comments PARTIAL THROMBOPLASTIN TIME 54.0 seconds 22.5-36.0 H (BEAKER) (test code = 760) PH, [id number] 09:17:00 Test Item Value Reference Range Interpretation Comments PH ARTERIAL (BEAKER) (test code = 383) 7.43 7.35-7.45 HEPATIC FUNCTION [id number] 07:42:00 Test Item Value Reference Range Interpretation Comments TOTAL PROTEIN (BEAKER) (test code = 5.1 gm/dL 6.0-8.3 L 770) ALBUMIN (BEAKER) (test code = 1145) 2.1 g/dL 3.5-5.0 L BILIRUBIN TOTAL (BEAKER) (test code 0.9 mg/dL 0.2-1.2 = 377) BILIRUBIN DIRECT (BEAKER) (test 0.6 mg/dL 0.1-0.5 H code = 706) ALKALINE PHOSPHATASE (BEAKER) (test 115 U/L 40-150 code = 346) AST (SGOT) (BEAKER) (test code = 497 U/L 5-34 H 353) ALT (SGPT) (BEAKER) (test code = 659 U/L 6-55 H 347) Stock Driver ID - ADMINBASIC METABOLIC [id number] 04:51:00 Test Item Value Reference Range Interpretation Comments SODIUM (BEAKER) 137 meq/L 136-145 (test code = 381) POTASSIUM (BEAKER) 3.8 meq/L 3.5-5.1 (test code = 379) CHLORIDE (BEAKER) 104 meq/L 98-107 (test code = 382) CO2 (BEAKER) (test 25 meq/L 22-29 code = 355) BLOOD UREA NITROGEN 21 mg/dL 7-21 (BEAKER) (test code = 354) CREATININE (BEAKER) 2.06 mg/dL 0.57-1.25 H (test code = 358) GLUCOSE RANDOM 102 mg/dL 70-105 (BEAKER) (test code = 652) CALCIUM (BEAKER) 7.9 mg/dL 8.4-10.2 L (test code = 697) EGFR (BEAKER) (test 43 mL/min/1.73 ESTIMA ARI GFR IS code = 1092) sq m NOT ACCURATE CREATININE CLEARANCE IN PREDICTING GLOMERULAR FILTRATION RATE . ESTIMATED GFR I S NOT APPLICABLE FOR DIALYSIS PATIEN TS. Stock Driver ID - [id number] 04:49:00 Test Item Value Reference Range Interpretation Comments MAGNESIUM (BEAKER) (test code = 2.2 mg/dL 1.6-2.6 627) Stock Driver ID - ADMINPROTHROMBIN [id number] 04:19:00 Test Item Value Reference Range Interpretation Comments PROTIME (BEAKER) 16.2 seconds 11.9-14.2 H (test code = 759) INR (BEAKER) (test 1.33 See_Comment [Automat ed message] code = 370) The system Umeng generated this result transmitted ref erence range: <=5.90. The reference range was not used to int erpret this result as normal/abnormal . RECOMMENDED COUMADIN/WARFARIN INR THERAPY RANGESSTANDARD DOSE: 2.0 - 3.0 Includes: PROPHYLAXIS forvenous thrombosis, systemic embolization; TREATMENT for venous thrombosis and/or pulmonary embolus.HIGH RISK: Target INR is 2.5-3.5 for patients with mechanical heart valves.CBC W/PLT COUNT & AUTO DIFFERENTIAL 2021-01-20 04:13:00 Test Item Value Reference Range Interpretation Comments WHITE BLOOD CELL COUNT (BEAKER) 14.6 K/ L 3.5-10.5 H (test code = 775) RED BLOOD CELL COUNT (BEAKER) 2.56 M/ L 4.63-6.08 L (test code = 761) HEMOGLOBIN (BEAKER) (test code = 7.2 GM/DL 13.7-17.5 L 410) HEMATOCRIT (BEAKER) (test code = 23.4 % 40.1-51.0 L 411) MEAN CORPUSCULAR VOLUME (BEAKER) 91.4 fL 79.0-92.2 (test code = 753) MEAN CORPUSCULAR HEMOGLOBIN 28.1 pg 25.7-32.2 (BEAKER) (test code = 751) MEAN CORPUSCULAR HEMOGLOBIN CONC 30.8 GM/DL 32.3-36.5 L (BEAKER) (test code = 752) RED CELL DISTRIBUTION WIDTH 16.4 % 11.6-14.4 H (BEAKER) (test code = 412) PLATELET COUNT (BEAKER) (test 145 K/CU MM 150-450 L code = 756) MEAN PLATELET VOLUME (BEAKER) 10.2 fL 9.4-12.4 (test code = 754) NUCLEATED RED BLOOD CELLS 1 /100 WBC 0-0 H (BEAKER) (test code = 413) NEUTROPHILS RELATIVE PERCENT 83 % (BEAKER) (test code = 429) LYMPHOCYTES RELATIVE PERCENT 4 % (BEAKER) (test code = 430) MONOCYTES RELATIVE PERCENT 9 % (BEAKER) (test code = 431) EOSINOPHILS RELATIVE PERCENT 0 % (BEAKER) (test code = 432) BASOPHILS RELATIVE PERCENT 1 % (BEAKER) (test code = 437) NEUTROPHILS ABSOLUTE COUNT 12.09 K/ L 1.78-5.38 H (BEAKER) (test code = 670) LYMPHOCYTES ABSOLUTE COUNT 0.64 K/ L 1.32-3.57 L (BEAKER) (test code = 414) MONOCYTES ABSOLUTE COUNT (BEAKER) 1.26 K/ L 0.30-0.82 H (test code = 415) EOSINOPHILS ABSOLUTE COUNT 0.06 K/ L 0.04-0.54 (BEAKER) (test code = 416) BASOPHILS ABSOLUTE COUNT (BEAKER) 0.09 K/ L 0.01-0.08 H (test code = 417) IMMATURE GRANULOCYTES-RELATIVE 3 % 0-1 H PERCENT (BEAKER) (test code = 2801) BLOOD GAS, [id number] 03:56:00 Test Item Value Reference Range Interpretation Comments PH ARTERIAL (BEAKER) (test code = 7.44 7.35-7.45 383) PCO2 ARTERIAL (BEAKER) (test code 42 mm Hg 35-45 = 384) PO2 ARTERIAL (BEAKER) (test code = 176 mm Hg 80-90 H 385) O2 SATURATION ARTERIAL (BEAKER) 99.3 % 96.0-97.0 H (test code = 386) HCO3 ARTERIAL (BEAKER) (test code 28 mmol/L 21-29 = 388) BASE EXCESS ARTERIAL (BEAKER) 3.6 mmol/L -2.0-3.0 H (test code = 387) PATIENT TEMPERATURE (BEAKER) (test 37.0 code = 1818) FIO2 (BEAKER) (test code = 1819) 40.0 CALCIUM, [id number] 03:56:00 Test Item Value Reference Range Interpretation Comments CALCIUM IONIZED (BEAKER) (test 1.17 mmol/L 1.12-1.27 code = 698) PH, BLOOD (BEAKER) (test code = 7.44 1810) RAD, CHEST, 1 VIEW, NON [id number] 03:04:00Reason for exam:->chest tubes, s/p cardiac surgeryShould this be performed at the bedside?->Yes [facility] 1975 Sex: MFINAL REPORT EXAM/TECHNIQUE: Single view frontal radiograph of the est. INDICATION: Chest tubes, status post cardiac surgery. COMPARISON: Chest radiography from 01/19/2021. FINDINGS: Devices/Objects: Feeding tube course below the diaphragm and terminates below [id number]-nb-ggrv. Endotracheal tube is unchanged. Left internal jugular central venous catheter is unchanged. Es ophageal temperature probe is present. Bilateral chest tubes are present. Lungs: Increased bilateralbasilar pulmonary opacities. No visible pneumothorax. Heart/Mediastinum: Unchanged cardiomegaly. Osseous: No acute osseous process. No suspicious osseous lesion. Upper abdomen: Unremarkable. Impression: Increasing bilateral basilar pulmonary opacities. Signed: Philipp Booker MDReport Verified Date/Time: 01/20/2021 03:04:06 [id number] 02:28:00 Test Item Value Reference Range Interpretation Comments PARTIAL THROMBOPLASTIN TIME 44.7 seconds 22.5-36.0 H (BEAKER) (test code = 760) [id number] 01:31:00 Test Item Value Reference Range Interpretation Comments POTASSIUM (BEAKER) 4.2 meq/L 3.5-5.1 Specimen slightly (test code = 379) hemolyzed Stock Driver ID - [id number] 00:31:00 Test Item Value Reference Range Interpretation Comments POC-GLUCOSE METER 107 mg/dL 70-110 : [facility] ([facility] (test code = [place], 1538) [address]: Stock Driver/Techni won ID = [id number] for Sadia Black HEMOGLOBIN AND [id number] 00:28:00 Test Item Value Reference Range Interpretation Comments HEMOGLOBIN (BEAKER) (test code = 7.5 GM/DL 13.7-17.5 L 410) HEMATOCRIT (BEAKER) (test code = 24.1 % 40.1-51.0 L 411) Stock Driver ID - [id number] 21:20:00 Test Item Value Reference Range Interpretation Comments MAGNESIUM (BEAKER) (test code = 2.0 mg/dL 1.6-2.6 627) Stock Driver ID - [id number] 21:20:00 Test Item Value Reference Range Interpretation Comments PHOSPHORUS (BEAKER) (test code = 3.6 mg/dL 2.3-4.7 604) Stock Driver ID - [id number] 21:20:00 Test Item Value Reference Range Interpretation Comments POTASSIUM (BEAKER) (test code = 3.7 meq/L 3.5-5.1 379) Stock Driver ID - [id number] 20:52:00 Test Item Value Reference Range Interpretation Comments PARTIAL THROMBOPLASTIN TIME 41.1 seconds 22.5-36.0 H (BEAKER) (test code = 760) PH, [id number] 20:36:00 Test Item Value Reference Range Interpretation Comments PH ARTERIAL (BEAKER) (test code = 383) 7.41 7.35-7.45 Vancomycin level, [id number] 17:55:00 Test Item Value Reference Range Interpretation Comments Vancomycin Tr (test code = 13.4 ug/mL 03-29 4092-3) CARLEY (test code = CARLEY) Stock Driver ID - ADMIN Lab Interpretation (test Normal code = 44089-1) [facility] [id number] 17:55:00 Test Item Value Reference Range Interpretation Comments Vancomycin Tr (test code = 13.4 ug/mL 10-20 4092-3) CARLEY (test code = CARLEY) Stock Driver ID - ADMIN Lab Interpretation (test Normal code = 60863-6) [facility], [id number] 17:55:00 Test Item Value Reference Range Interpretation Comments Vancomycin Tr (test code = 13.4 ug/mL 10-20 4092-3) CARLEY (test code = CARLEY) Stock Driver ID - ADMIN Lab Interpretation (test Normal code = 83459-5) [facility] [id number] 17:55:00 Test Item Value Reference Range Interpretation Comments VANCOMYCIN TROUGH (BEAKER) (test 13.4 ug/mL 10.0-20.0 code = 522) Stock Driver ID - [id number] 17:39:00 Test Item Value Reference Range Interpretation Comments POTASSIUM (BEAKER) (test code = 3.7 meq/L 3.5-5.1 379) Stock Driver ID - DBCBC W/PLT COUNT & AUTO [id number] 17:29:00 Test Item Value Reference Range Interpretation Comments WHITE BLOOD CELL COUNT (BEAKER) 18.2 K/ L 3.5-10.5 H (test code = 775) RED BLOOD CELL COUNT (BEAKER) 2.37 M/ L 4.63-6.08 L (test code = 761) HEMOGLOBIN (BEAKER) (test code = 6.7 GM/DL 13.7-17.5 L 410) HEMATOCRIT (BEAKER) (test code = 21.8 % 40.1-51.0 L 411) MEAN CORPUSCULAR VOLUME (BEAKER) 92.0 fL 79.0-92.2 (test code = 753) MEAN CORPUSCULAR HEMOGLOBIN 28.3 pg 25.7-32.2 (BEAKER) (test code = 751) MEAN CORPUSCULAR HEMOGLOBIN CONC 30.7 GM/DL 32.3-36.5 L (BEAKER) (test code = 752) RED CELL DISTRIBUTION WIDTH 16.3 % 11.6-14.4 H (BEAKER) (test code = 412) PLATELET COUNT (BEAKER) (test 159 K/CU MM 150-450 code = 756) MEAN PLATELET VOLUME (BEAKER) 9.8 fL 9.4-12.4 (test code = 754) NUCLEATED RED BLOOD CELLS 0 /100 WBC 0-0 (BEAKER) (test code = 413) NEUTROPHILS RELATIVE PERCENT 85 % (BEAKER) (test code = 429) LYMPHOCYTES RELATIVE PERCENT 4 % (BEAKER) (test code = 430) MONOCYTES RELATIVE PERCENT 7 % (BEAKER) (test code = 431) EOSINOPHILS RELATIVE PERCENT 0 % (BEAKER) (test code = 432) BASOPHILS RELATIVE PERCENT 1 % (BEAKER) (test code = 437) NEUTROPHILS ABSOLUTE COUNT 15.41 K/ L 1.78-5.38 H (BEAKER) (test code = 670) LYMPHOCYTES ABSOLUTE COUNT 0.63 K/ L 1.32-3.57 L (BEAKER) (test code = 414) MONOCYTES ABSOLUTE COUNT (BEAKER) 1.27 K/ L 0.30-0.82 H (test code = 415) EOSINOPHILS ABSOLUTE COUNT 0.08 K/ L 0.04-0.54 (BEAKER) (test code = 416) BASOPHILS ABSOLUTE COUNT (BEAKER) 0.13 K/ L 0.01-0.08 H (test code = 417) IMMATURE GRANULOCYTES-RELATIVE 4 % 0-1 H PERCENT (BEAKER) (test code = 2801) [id number] 11:58:00 Test Item Value Reference Range Interpretation Comments POTASSIUM (BEAKER) (test code = 4.0 meq/L 3.5-5.1 379) Stock Driver ID - ADMINPOCT-GLUCOSE [id number] 11:51:00 Test Item Value Reference Range Interpretation Comments POC-GLUCOSE METER 72 mg/dL 70-110 : TESTED A T [facility] 6720 (BEAKER) (test code = [place], 1538) [address]: Stock Driver/Techni won ID = [id number] for FIDELIA MENJIVAR [id number] 11:47:00 Test Item Value Reference Range Interpretation Comments PROTIME (BEAKER) (test 17.6 seconds 11.9-14.2 H code = 759) INR (BEAKER) (test 1.47 See_Comment [Automat ed code = 370) message] The sy stem which generated this result transmitted reference range : <=5.90. The reference range was not used to interpret this result as normal/abnormal . PARTIAL THROMBOPLASTIN 41.6 seconds 22.5-36.0 H TIME (BEAKER) (test code = 760) RECOMMENDED COUMADIN/WARFARIN INR THERAPY RANGESSTANDARD DOSE: 2.0 - 3.0 Includes: PROPHYLAXIS forvenous thrombosis, systemic embolization; TREATMENT for venous thrombosis and/or pulmonary embolus.HIGH RISK: Target INR is 2.5-3.5 for patients with mechanical heart valves.CBC W/PLT COUNT & AUTO DIFFERENTIAL 2021-01-19 10:41:00 Test Item Value Reference Range Interpretation Comments WHITE BLOOD CELL COUNT (BEAKER) 25.6 K/ L 3.5-10.5 H (test code = 775) RED BLOOD CELL COUNT (BEAKER) 2.60 M/ L 4.63-6.08 L (test code = 761) HEMOGLOBIN (BEAKER) (test code = 7.3 GM/DL 13.7-17.5 L 410) HEMATOCRIT (BEAKER) (test code = 24.5 % 40.1-51.0 L 411) MEAN CORPUSCULAR VOLUME (BEAKER) 94.2 fL 79.0-92.2 H (test code = 753) MEAN CORPUSCULAR HEMOGLOBIN 28.1 pg 25.7-32.2 (BEAKER) (test code = 751) MEAN CORPUSCULAR HEMOGLOBIN CONC 29.8 GM/DL 32.3-36.5 L (BEAKER) (test code = 752) RED CELL DISTRIBUTION WIDTH 16.6 % 11.6-14.4 H (BEAKER) (test code = 412) PLATELET COUNT (BEAKER) (test 229 K/CU MM 150-450 code = 756) MEAN PLATELET VOLUME (BEAKER) 11.0 fL 9.4-12.4 (test code = 754) NUCLEATED RED BLOOD CELLS 1 /100 WBC 0-0 H (BEAKER) (test code = 413) [id number] 10:06:00 Test Item Value Reference Range Interpretation Comments PHOSPHORUS (BEAKER) (test code = 3.8 mg/dL 2.3-4.7 604) Stock Driver ID - ADMINBLOOD GAS, [id number] 09:13:00 Test Item Value Reference Range Interpretation Comments PH ARTERIAL (BEAKER) (test code = 7.45 7.35-7.45 383) PCO2 ARTERIAL (BEAKER) (test code 40 mm Hg 35-45 = 384) PO2 ARTERIAL (BEAKER) (test code = 199 mm Hg 80-90 H 385) O2 SATURATION ARTERIAL (BEAKER) 99.4 % 96.0-97.0 H (test code = 386) HCO3 ARTERIAL (BEAKER) (test code 27 mmol/L 21-29 = 388) BASE EXCESS ARTERIAL (BEAKER) 2.4 mmol/L -2.0-3.0 (test code = 387) PATIENT TEMPERATURE (BEAKER) (test 37.5 code = 1818) FIO2 (BEAKER) (test code = 1819) 40.0 CBC W/PLT COUNT & AUTO [id number] 07:00:00 Test Item Value Reference Range Interpretation Comments WHITE BLOOD CELL COUNT (BEAKER) 27.6 K/ L 3.5-10.5 H (test code = 775) RED BLOOD CELL COUNT (BEAKER) 2.63 M/ L 4.63-6.08 L (test code = 761) HEMOGLOBIN (BEAKER) (test code = 7.3 GM/DL 13.7-17.5 L 410) HEMATOCRIT (BEAKER) (test code = 24.5 % 40.1-51.0 L 411) MEAN CORPUSCULAR VOLUME (BEAKER) 93.2 fL 79.0-92.2 H (test code = 753) MEAN CORPUSCULAR HEMOGLOBIN 27.8 pg 25.7-32.2 (BEAKER) (test code = 751) MEAN CORPUSCULAR HEMOGLOBIN CONC 29.8 GM/DL 32.3-36.5 L (BEAKER) (test code = 752) RED CELL DISTRIBUTION WIDTH 16.5 % 11.6-14.4 H (BEAKER) (test code = 412) PLATELET COUNT (BEAKER) (test 246 K/CU MM 150-450 code = 756) MEAN PLATELET VOLUME (BEAKER) 10.3 fL 9.4-12.4 (test code = 754) NUCLEATED RED BLOOD CELLS 1 /100 WBC 0-0 H (BEAKER) (test code = 413) (CELLAVISION MANUAL DIFF)2021-01-19 07:00:00 Test Item Value Reference Range Interpretation Comments NEUTROPHILS - REL 93 % (CELLAVISION)(BEAKER) (test code = 2816) LYMPHOCYTES - REL 2 % (CELLAVISION)(BEAKER) (test code = 2817) MONOCYTES - REL 4 % (CELLAVISION)(BEAKER) (test code = 2818) BASOPHILS - REL 1 % (CELLAVISION)(BEAKER) (test code = 2820) NEUTROPHILS - ABS 25.67 K/ul 1.78-5.38 H (CELLAVISION)(BEAKER) (test code = 2830) LYMPHOCYTES - ABS 0.55 K/ul 1.32-3.57 L (CELLAVISION)(BEAKER) (test code = 2831) MONOCYTES - ABS 1.10 K/uL 0.30-0.82 H (CELLAVISION)(BEAKER) (test code = 2832) BASOPHILS - ABS 0.28 K/uL 0.01-0.08 H (CELLAVISION)(BEAKER) (test code = 2835) TOTAL COUNTED (BEAKER) (test code 100 = 1351) WBC MORPHOLOGY (BEAKER) (test Normal code = 487) PLT MORPHOLOGY (BEAKER) (test Normal code = 486) ANISOCYTOSIS (BEAKER) (test code 1+ few = 961) POIKILOCYTES (BEAKER) (test code 2+ moderate = 966) OVALOCYTES (BEAKER) (test code = 2+ moderate 477) CHIKIS CELLS (BEAKER) (test code = 1+ few 474) ARTIFACT (CELLAVISION)(BEAKER) Present (test code = 3432) PLATELET CONCENTRATION Adequate (CELLAVISION)(BEAKER) (test code = 3438) Stock Driver ID - Dariela OverholtUser comments: Slide comments:HEMOGLOBIN AND [id number] 06:48:00 Test Item Value Reference Range Interpretation Comments HEMOGLOBIN (BEAKER) (test code = 7.2 GM/DL 13.7-17.5 L 410) HEMATOCRIT (BEAKER) (test code = 23.6 % 40.1-51.0 L 411) Stock Driver ID - 6000POCT-GLUCOSE [id number] 06:35:00 Test Item Value Reference Range Interpretation Comments POC-GLUCOSE METER 92 mg/dL 70-110 : TESTED A T [facility] 6720 (BEAKER) (test code = [place], 1538) [address]: Stock Driver/Techni won ID = [id number] for MESERET ETT, SEPTEMBER CALCIUM, [id number] 05:04:00 Test Item Value Reference Range Interpretation Comments CALCIUM IONIZED (BEAKER) (test 1.13 mmol/L 1.12-1.27 code = 698) PH, BLOOD (BEAKER) (test code = 7.41 1810) BLOOD GAS, [id number] 05:01:00 Test Item Value Reference Range Interpretation Comments PH ARTERIAL (BEAKER) (test code = 7.41 7.35-7.45 383) PCO2 ARTERIAL (BEAKER) (test code 42 mm Hg 35-45 = 384) PO2 ARTERIAL (BEAKER) (test code = 161 mm Hg 80-90 H 385) O2 SATURATION ARTERIAL (BEAKER) 99.1 % 96.0-97.0 H (test code = 386) HCO3 ARTERIAL (BEAKER) (test code 26 mmol/L 21-29 = 388) BASE EXCESS ARTERIAL (BEAKER) 1.0 mmol/L -2.0-3.0 (test code = 387) PATIENT TEMPERATURE (BEAKER) (test 37.0 code = 1818) FIO2 (BEAKER) (test code = 1819) 40.0 COMPREHENSIVE METABOLIC [id number] 04:56:00 Test Item Value Reference Range Interpretation Comments TOTAL PROTEIN 4.9 gm/dL 6.0-8.3 L (BEAKER) (test code = 770) ALBUMIN (BEAKER) 2.1 g/dL 3.5-5.0 L (test code = 1145) ALKALINE PHOSPHATASE 127 U/L 40-150 (BEAKER) (test code = 346) BILIRUBIN TOTAL 1.0 mg/dL 0.2-1.2 (BEAKER) (test code = 377) SODIUM (BEAKER) (test 137 meq/L 136-145 code = 381) POTASSIUM (BEAKER) 3.9 meq/L 3.5-5.1 (test code = 379) CHLORIDE (BEAKER) 104 meq/L 98-107 (test code = 382) CO2 (BEAKER) (test 24 meq/L 22-29 code = 355) BLOOD UREA NITROGEN 24 mg/dL 7-21 H (BEAKER) (test code = 354) CREATININE (BEAKER) 2.58 mg/dL 0.57-1.25 H (test code = 358) GLUCOSE RANDOM 99 mg/dL 70-105 (BEAKER) (test code = 652) CALCIUM (BEAKER) 8.0 mg/dL 8.4-10.2 L (test code = 697) AST (SGOT) (BEAKER) 1533 U/L 5-34 H (test code = 353) ALT (SGPT) (BEAKER) 995 U/L 6-55 H (test code = 347) EGFR (BEAKER) (test 33 mL/min/1.73 ESTIMA ARI GFR IS code = 1092) sq m NOT ACCURATE CREATININE CLEARANCE IN PREDICTING GLOMERULAR FILTRATION RATE . ESTIMATED GFR I S NOT APPLICABLE FOR DIALYSIS PATIEN TS. Stock Driver ID - [id number] 04:56:00 Test Item Value Reference Range Interpretation Comments MAGNESIUM (BEAKER) (test code = 2.1 mg/dL 1.6-2.6 627) Stock Driver ID - ADMINHEPATIC FUNCTION [id number] 04:56:00 Test Item Value Reference Range Interpretation Comments TOTAL PROTEIN (BEAKER) (test code = 4.9 gm/dL 6.0-8.3 L 770) ALBUMIN (BEAKER) (test code = 1145) 2.1 g/dL 3.5-5.0 L BILIRUBIN TOTAL (BEAKER) (test code 1.0 mg/dL 0.2-1.2 = 377) BILIRUBIN DIRECT (BEAKER) (test 0.7 mg/dL 0.1-0.5 H code = 706) ALKALINE PHOSPHATASE (BEAKER) (test 127 U/L 40-150 code = 346) AST (SGOT) (BEAKER) (test code = 1533 U/L 5-34 H 353) ALT (SGPT) (BEAKER) (test code = 995 U/L 6-55 H 347) Stock Driver ID - [id number] 04:28:00 Test Item Value Reference Range Interpretation Comments PARTIAL THROMBOPLASTIN TIME 39.7 seconds 22.5-36.0 H (BEAKER) (test code = 760) PROTHROMBIN [id number] 04:27:00 Test Item Value Reference Range Interpretation Comments PROTIME (TAMARA) 18.5 seconds 11.9-14.2 H (test code = 759) INR (TAMARA) (test 1.57 See_Comment [Automat ed message] code = 370) The system [employer] generated this result transmitted ref erence range: <=5.90. The reference range was not used to int erpret this result as normal/abnormal . RECOMMENDED COUMADIN/WARFARIN INR THERAPY RANGESSTANDARD DOSE: 2.0 - 3.0 Includes: PROPHYLAXIS forvenous thrombosis, systemic embolization; TREATMENT for venous thrombosis and/or pulmonary embolus.HIGH RISK: Target INR is 2.5-3.5 for patients with mechanical heart valves.RAD, CHEST, 1 VIEW, NON [id number] 01:51:00Reason for exam:->chest tubes, s/p cardiac surgeryShould this be performed at the bedside?->Yes [facility] 1975 Sex: MFINAL REPORT EXAM/TECHNIQUE: Single view frontal radiograph of the ch est. Supine radiograph of the abdomen. INDICATION: Feeding tube, chest tubes. COMPARISON: Chest radiography from 01/18/2021. FINDINGS: Devices/Objects: Endotracheal tube terminates about 5 cm above thecarina. Feeding tube course below the diaphragm and terminates in the gastric antrum versus proximal duodenum. Left internal jugular central venous catheter terminates near the confluence of the SVC. Aortic valve prosthesis is present. Esophageal temperature probe projects over the upper chest. Lungs:Grossly similar retrocardiac opacity. Heart/Mediastinum: Unchanged cardiomegaly. Osseous: No acute osseous process. No suspicious osseous lesion. Abdomen: Unremarkable. Impression: Grossly similar retrocardiac opacity.Feeding tube terminates in the gastric antrum versus proximal duodenum. Signed: Philipp Booker Verified Date/Time: 01/19/2021 01:51:42 RAD, ABDOMEN/KUB, 1 VIEW [id number] 01:51:00Reason for exam:->Verify corpak placementShould this be performed at the bedside?->Yes [facility] : 1975 Sex: MFINAL REPORT EXAM/TECHNIQUE: Single view frontal radiograph of the ch est. Supine radiograph of the abdomen. INDICATION: Feeding tube, chest tubes. COMPARISON: Chest radiography from 01/18/2021. FINDINGS: Devices/Objects: Endotracheal tube terminates about 5 cm above thecarina. Feeding tube course below the diaphragm and terminates in the gastric antrum versus proximal duodenum. Left internal jugular central venous catheter terminates near the confluence of the SVC. Aortic valve prosthesis is present. Esophageal temperature probe projects over the upper chest. Lungs:Grossly similar retrocardiac opacity. Heart/Mediastinum: Unchanged cardiomegaly. Osseous: No acute osseous process. No suspicious osseous lesion. Abdomen: Unremarkable. Impression: Grossly similar retrocardiac opacity.Feeding tube terminates in the gastric antrum versus proximal duodenum. Signed: Philipp Booker MDRjonathanort Verified Date/Time: 01/19/2021 01:51:42 POCT-GLUCOSE [id number] 01:49:00 Test Item Value Reference Range Interpretation Comments POC-GLUCOSE METER 121 mg/dL 70-110 H : TESTED A T [facility] 6720 (BEAKER) (test code = NORM Ten[place] [facility], 1538) [address]: Stock Driver/Techni won ID = [id number] for DO KUSeptember POCT-GLUCOSE [id number] 00:34:00 Test Item Value Reference Range Interpretation Comments POC-GLUCOSE METER 68 mg/dL 70-110 L : Will Rep eat Test: (BEAKER) (test code = Notifi ed RN/MD: TESTED 1538) AT [facility] [address] [facility], 7[address]: Stock Driver/Techni won ID = [id number] for MESERET DELVALLET, SEPTEMBER [id number] 20:31:00 Test Item Value Reference Range Interpretation Comments MAGNESIUM (BEAKER) 1.8 mg/dL 1.6-2.6 Specimen moderately (test code = 627) hemolyzed Stock Driver ID - [id number] 20:31:00 Test Item Value Reference Range Interpretation Comments PHOSPHORUS (BEAKER) 3.9 mg/dL 2.3-4.7 Specimen moderately (test code = 604) hemolyzed Stock Driver ID - [id number] 20:31:00 Test Item Value Reference Range Interpretation Comments POTASSIUM (BEAKER) 4.4 meq/L 3.5-5.1 Specimen moderately (test code = 379) hemolyzed Stock Driver ID - ADMINHEMOGLOBIN AND [id number] 20:15:00 Test Item Value Reference Range Interpretation Comments HEMOGLOBIN (BEAKER) (test code = 8.0 GM/DL 13.7-17.5 L 410) HEMATOCRIT (BEAKER) (test code = 25.6 % 40.1-51.0 L 411) Stock Driver ID - 6000PH, [id number] 20:13:00 Test Item Value Reference Range Interpretation Comments PH ARTERIAL (BEAKER) (test code = 383) 7.45 7.35-7.45 POCT-GLUCOSE [id number] 18:00:00 Test Item Value Reference Range Interpretation Comments POC-GLUCOSE METER 74 mg/dL 70-110 : TESTED A T [facility] 6720 (BEAKER) (test code = [place], 1538) [address]: Stock Driver/Techni won ID = [id number] for Ezra Gregorio [id number] 17:36:00 Test Item Value Reference Range Interpretation Comments POTASSIUM (TAMARA) 4.2 meq/L 3.5-5.1 Specimen slightly (test code = 379) hemolyzed SARS-CoV2/RT-PCR (Asymptomatic ONLY)2021-01-18 14:08:00 Test Item Value Reference Range Interpretation Comments SARS-COV2/RT-PCR Negative Not Detected, (test code = Negative, See 30473-3) external report for linked test SARS-COV-2 [facility] PERFORMING LAB (test code = 49103-8) CARLEY (test code = Negative result for this CARLEY) test determines that SARS-CoV-2 RNA was not present in the specimen above the Limit of Detection (LOD). However, Negative results do not preclude SARS-CoV-2 infection and should not be used as the sole basis for treatment or patient management decisions. Negative results must be combined with clinical observations, patient history, and epidemiological information. A false negative result may occur if a specimen is improperly collected, transported or handled. A false negative result should be considered if patient's recent exposures or clinical presentation indicate that COVID-19 (SARS-CoV-2) is likely and diagnostic tests for other causes of illness are negative. Re-testing should be considered in cases of suspected false negatives. The limit of detection for this assay is 800 copies/mL. This SARS CoV-2 test is a real-time RT-PCR test intended for the qualitative detection of nucleic acid from SARS-CoV-2 in a nasopharyngeal swab specimen collected from individuals suspected of COVID-19 by their healthcare provider. This test has not been Food and Drug Administration (FDA) cleared or approved. This is a modified version of an approved Emergency Use Authorization (EUA) and is in the process of review by the FDA. Once authorized by the FDA, the issued EUA will be effective until the declaration that circumstances exist justifying the authorization of the emergency use of in vitro diagnostic tests for detection and/or diagnosis of COVID-19 is terminated under Section 564(b)(2) of the Act or the EUA is revoked under Section 564(g) of the Act. Fact Sheet for Healthcare Providers:https://www.Identyxl.Lookback/sites/default/f carlita/product/documents/F act_Sheet_HC_Providers_L hcz_IWHH-YbK-1.pdf Fact Sheet for Healthcare Patients:https://www.idiag/sites/default/fi les/product/documents/Fa ct_Sheet_Patients_Lyra_S ARS-CoV-2.pdf Performing Laboratory:[facility] [place] [address] [facility]2021-01-18 14:08:00 Test Item Value Reference Range Interpretation Comments SARS-COV2/RT-PCR Negative Not Detected, (test code = Negative, See 17733-6) external report for linked test SARS-COV-2 [facility] PERFORM[facility] (test code = 30774-0) CARLEY (test code = Negative result for this CARLEY) test determines that SARS-CoV-2 RNA was not present in the specimen above the Limit of Detection (LOD). However, Negative results do not preclude SARS-CoV-2 infection and should not be used as the sole basis for treatment or patient management decisions. Negative results must be combined with clinical observations, patient history, and epidemiological information. A false negative result may occur if a specimen is improperly collected, transported or handled. A false negative result should be considered if patient's recent exposures or clinical presentation indicate that COVID-19 (SARS-CoV-2) is likely and diagnostic tests for other causes of illness are negative. Re-testing should be considered in cases of suspected false negatives. The limit of detection for this assay is 800 copies/mL. This SARS CoV-2 test is a real-time RT-PCR test intended for the qualitative detection of nucleic acid from SARS-CoV-2 in a nasopharyngeal swab specimen collected from individuals suspected of COVID-19 by their healthcare provider. This test has not been Food and Drug Administration (FDA) cleared or approved. This is a modified version of an approved Emergency Use Authorization (EUA) and is in the process of review by the FDA. Once authorized by the FDA, the issued EUA will be effective until the declaration that circumstances exist justifying the authorization of the emergency use of in vitro diagnostic tests for detection and/or diagnosis of COVID-19 is terminated under Section 564(b)(2) of the Act or the EUA is revoked under Section 564(g) of the Act. Fact Sheet for Healthcare Providers:https://www.[employer]/sites/default/f carlita/product/documents/F act_Sheet_HC_Providers_L vxw_KFJW-AdG-7.pdf Fact Sheet for Healthcare Patients:https://www.idiag/sites/default/fi les/product/documents/Fa ct_Sheet_Patients_Lyra_S ARS-CoV-2.pdf Performing Laboratory:[facility] [place] [address] [facility]Asymptomatic ONLY)2021-01-18 14:08:00 Test Item Value Reference Range Interpretation Comments SARS-COV2/RT-PCR Negative Not Detected, (test code = Negative, See 23629-4) external report for linked test SARS-COV-2 [facility] PER[facility] (test code = 64324-1) CARLEY (test code = Negative result for this CARLEY) test determines that SARS-CoV-2 RNA was not present in the specimen above the Limit of Detection (LOD). However, Negative results do not preclude SARS-CoV-2 infection and should not be used as the sole basis for treatment or patient management decisions. Negative results must be combined with clinical observations, patient history, and epidemiological information. A false negative result may occur if a specimen is improperly collected, transported or handled. A false negative result should be considered if patient's recent exposures or clinical presentation indicate that COVID-19 (SARS-CoV-2) is likely and diagnostic tests for other causes of illness are negative. Re-testing should be considered in cases of suspected false negatives. The limit of detection for this assay is 800 copies/mL. This SARS CoV-2 test is a real-time RT-PCR test intended for the qualitative detection of nucleic acid from SARS-CoV-2 in a nasopharyngeal swab specimen collected from individuals suspected of COVID-19 by their healthcare provider. This test has not been Food and Drug Administration (FDA) cleared or approved. This is a modified version of an approved Emergency Use Authorization (EUA) and is in the process of review by the FDA. Once authorized by the FDA, the issued EUA will be effective until the declaration that circumstances exist justifying the authorization of the emergency use of in vitro diagnostic tests for detection and/or diagnosis of COVID-19 is terminated under Section 564(b)(2) of the Act or the EUA is revoked under Section 564(g) of the Act. Fact Sheet for Healthcare Providers:https://www.[employer]/sites/default/f carlita/product/documents/F act_Sheet_HC_Providers_L wud_IWFX-TyR-2.pdf Fact Sheet for Healthcare Patients:https://www.idiag/sites/default/fi les/product/documents/Fa ct_Sheet_Patients_Lyra_S ARS-CoV-2.pdf Performing Laboratory:[facility] [place] [address] [facility])2021-01-18 14:08:00 Test Item Value Reference Range Interpretation Comments SARS-COV2/RT-PCR (test Negative Not Detected, Negative, code = 4676004) See external report for linked test SARS-COV-2 PERFORMING LAB [facility] (test code = 2257836) Negative result for this test determines that SARS-CoV-2 RNA was not present in the specimen above the Limit of Detection (LOD). However, Negative results do not preclude SARS-CoV-2 infection and should not be used as the sole basis for treatment or patient management decisions. Negative results mustbe combined with clinical observations, patient history, and epidemiological information. A false negative result may occur if a specimen is improperly collected, transported or handled. A false negative result should be considered if patient's recent exposures or clinical presentation indicate that COVID-19 (SARS-CoV-2) is likely and diagnostic tests for other causes of illness are negative. Re-testing should be considered in cases of suspected false negatives.The limit of detection for this assay is 800 copies/mL.This SARS CoV-2 test is a real-time RT-PCR test intended for the qualitative detection of nucleic acid from SARS-CoV-2 in a nasopharyngeal swab specimen collected from individuals susp ected of COVID-19 by their healthcare provider.This test has not been Food and Drug Administration (FDA) cleared or approved. This is a modified version of an approved Emergency Use Authorization (EUA) and is in the process of review by the FDA. Once authorized by the FDA, the issued EUA will be effective until the declaration that circumstances exist justifying the authorization of the emergency use of in vitro diagnostic tests for detection and/or diagnosis of COVID-19 is terminated under Section 564(b)(2) of the Act or the EUA is revoked under Section 564(g) of the Act.Fact Sheet for Healthcare Providers:https://www.[employer]/sites/default/files/product/documents/Fact_Shee p_LV_Adlwmljki_Hboq_YJFZ-GwZ-8.pdfFact Sheet for Healthcare Patients:https://www.[employer]/sites/default/files/product/ documents/Dxdo_Vgfhk_Iibloapw_Mvlq_TJDR-QjZ-7.pdfPerforming Laboratory:[facility].[place], [place] [id number] 12:57:00 Test Item Value Reference Range Interpretation Comments POTASSIUM (BEAKER) (test code = 4.0 meq/L 3.6-5.5 379) POCT-GLUCOSE [id number] 12:40:00 Test Item Value Reference Range Interpretation Comments POC-GLUCOSE METER 81 mg/dL 70-110 : TESTED A T [facility] 6720 (BEAKER) (test code = NORM [facility], 1538) [address]: Stock Driver/Techni won ID = [id number] for Bent on, Gladys Sputum Culture + Gram [id number] 11:19:00 Test Item Value Reference Range Interpretation Comments Gram Stain Result 1+ gram positive cocci in (test code = 1123) pairs and clusters CARLEY (test code = 4+ Normal respiratory CARLEY) [facility] [id number] 11:19:00 Test Item Value Reference Range Interpretation Comments Gram Stain Result 1+ gram positive cocci in (test code = 1123) pairs and clusters CARLEY (test code = 4+ Normal respiratory CARLEY) [facility] [id number] 11:19:00 Test Item Value Reference Range Interpretation Comments Gram Stain Result 1+ gram positive cocci in (test code = 1123) pairs and clusters CARLEY (test code = 4+ Normal respiratory CARLEY) [facility]AM [id number] 11:19:00 Test Item Value Reference Range Interpretation Comments GRAM STAIN RESULT <1+ WBCs (BEAKER) (test code = 1123) GRAM STAIN RESULT 0-5 epithelial cells (BEAKER) (test code = 438450) GRAM STAIN RESULT <1+ gram negative rods (BEAKER) (test code = 215232) GRAM STAIN RESULT 1+ gram positive cocci (BEAKER) (test code = in pairs and clusters 856232) 4+ Normal respiratory mendy [id number] 10:15:00 Test Item Value Reference Range Interpretation Comments PHOSPHORUS (BEAKER) (test code = 4.7 mg/dL 2.3-4.7 604) [id number] 10:09:00 Test Item Value Reference Range Interpretation Comments POTASSIUM (BEAKER) (test code = 3.8 meq/L 3.5-5.1 379) [id number] 10:09:00 Test Item Value Reference Range Interpretation Comments MAGNESIUM (BEAKER) (test code = 1.9 mg/dL 1.6-2.6 627) RAD, CHEST, 1 VIEW, NON [id number] 08:45:00Reason for exam:->pigtail chest tube placementShould this be performed at the bedside?->Yes [facility] : 1975 Sex: MFINAL REPORT RAD, CHEST, 1 VIEW, NON DEPT INDICATION: pigtail chest t ube placement COMPARISON: Numerous seven hours prior FINDINGS: Portable frontal view of the chest.IMPRESSION: Support Lines: Pigtail catheter has been placed over the right hemithorax. The left IJ central venous catheter has been retracted now terminating at the junction of the brachiocephalic vein and superior vena cava. Remaining support hardware is stable. Lungs and pleura: Unchanged airspace and pleural opacities. Near-complete resolution of the right pneumothorax.Heart and mediastinum: Stable contours. Stable surgical changes.Additional findings: None. Signed: JR Tate Robert MDReport Verified Date/Time: 01/18/2021 08:45:59 Reading Location: [facility] Reading Room [id number] 07:01:00 Test Item Value Reference Range Interpretation Comments MAGNESIUM (BEAKER) 2.1 mg/dL 1.6-2.6 Specimen slightly (test code = 627) hemolyzed COMPREHENSIVE METABOLIC [id number] 06:55:00 Test Item Value Reference Range Interpretation Comments TOTAL PROTEIN 4.7 gm/dL 6.0-8.3 L Specimen sligh tly (BEAKER) (test code = hemoly zed 770) ALBUMIN (BEAKER) 2.4 g/dL 3.5-5.0 L Specimen sl ightly (test code = 1145) hemolyzed ALKALINE PHOSPHATASE 111 U/L 40-150 (BEAKER) (test code = 346) BILIRUBIN TOTAL 0.6 mg/dL 0.2-1.2 Specimen sli ghtly (BEAKER) (test code = hemoly zed 377) SODIUM (BEAKER) (test 138 meq/L 136-145 code = 381) POTASSIUM (BEAKER) 4.0 meq/L 3.5-5.1 Specimen slightly (test code = 379) hemolyzed CHLORIDE (BEAKER) 104 meq/L 98-107 (test code = 382) CO2 (BEAKER) (test 24 meq/L 22-29 code = 355) BLOOD UREA NITROGEN 29 mg/dL 7-21 H (BEAKER) (test code = 354) CREATININE (BEAKER) 2.93 mg/dL 0.57-1.25 H Specimen slightly (test code = 358) hemolyzed GLUCOSE RANDOM 86 mg/dL 70-105 (BEAKER) (test code = 652) CALCIUM (BEAKER) 8.6 mg/dL 8.4-10.2 (test code = 697) AST (SGOT) (BEAKER) > U/L 5-34 H Specimen slightly (test code = 353) hemolyzed ALT (SGPT) (BEAKER) 1274 U/L 6-55 H Specimen slightly (test code = 347) hemolyzed EGFR (BEAKER) (test 29 mL/min/1.73 ESTIMA ARI GFR IS code = 1092) sq m NOT ACCURATE CREATININE CLEARANCE IN PREDICTING GLOMERULAR FILTRATION RATE . ESTIMATED GFR I S NOT APPLICABLE FOR DIALYSIS PATIEN TS. LACTIC ACID, [id number] 05:22:00 Test Item Value Reference Range Interpretation Comments LACTATE BLOOD ARTERIAL (2) 1.0 mmol/L 0.5-2.2 (BEAKER) (test code = 2874) HEMOGLOBIN AND [id number] 04:50:00 Test Item Value Reference Range Interpretation Comments HEMOGLOBIN (BEAKER) (test code = 8.4 GM/DL 13.7-17.5 L 410) HEMATOCRIT (BEAKER) (test code = 26.9 % 40.1-51.0 L 411) Stock Driver ID - [id number], CHEST, 1 VIEW, NON [id number] 04:47:00Reason for exam:->chest tubes, s/p cardiac surgeryShould this be performed at the bedside?->Yes[facility] : 1975 Sex: MFINAL REPORT RAD, CHEST, 1 VIEW, NON DEPT INDICATION: chest tubes, s/p cardiac surgery COMPARISON: Prior day's exam FINDINGS: Portable frontal view of the chest. IMPRESSION: Support Lines: Stable. Lungs and pleura: Unchanged bilateral peripheral opacities and small left pleural effusion. There is a new small to moderate right pneumothorax with pleural separation of 3.1 cm.Heart and mediastinum: Stable contours.Additional findings: None. The findings were discussed with nurse on 01/18/2021 at the time of dictation who will relay them to the physician. Signed: Sharon Krishnaneport Verified Date/Time: 01/18/2021 04:47:41 BLOOD GAS, [id number] 03:37:00 Test Item Value Reference Range Interpretation Comments PH ARTERIAL (BEAKER) (test code = 7.46 7.35-7.45 H 383) PCO2 ARTERIAL (BEAKER) (test code 39 mm Hg 35-45 = 384) PO2 ARTERIAL (BEAKER) (test code = 183 mm Hg 80-90 H 385) O2 SATURATION ARTERIAL (BEAKER) 99.3 % 96.0-97.0 H (test code = 386) HCO3 ARTERIAL (BEAKER) (test code 27 mmol/L 21-29 = 388) BASE EXCESS ARTERIAL (BEAKER) 2.6 mmol/L -2.0-3.0 (test code = 387) PATIENT TEMPERATURE (BEAKER) (test 36.5 code = 1818) FIO2 (BEAKER) (test code = 1819) 40.0 PROTHROMBIN [id number] 03:29:00 Test Item Value Reference Range Interpretation Comments PROTIME (BEAKER) 22.0 seconds 11.9-14.2 H (test code = 759) INR (BEAKER) (test 1.95 See_Comment [Automat ed message] code = 370) The system [employer] generated this result transmitted ref erence range: <=5.90. The reference range was not used to int erpret this result as normal/abnormal . RECOMMENDED COUMADIN/WARFARIN INR THERAPY RANGESSTANDARD DOSE: 2.0 - 3.0 Includes: PROPHYLAXIS forvenous thrombosis, systemic embolization; TREATMENT for venous thrombosis and/or pulmonary embolus.HIGH RISK: Target INR is 2.5-3.5 for patients with mechanical heart valves.[id number] 03:29:00 Test Item Value Reference Range Interpretation Comments PARTIAL THROMBOPLASTIN TIME 36.3 seconds 22.5-36.0 H (BEAKER) (test code = 760) CBC W/PLT COUNT & AUTO [id number] 03:23:00 Test Item Value Reference Range Interpretation Comments WHITE BLOOD CELL COUNT (BEAKER) 23.2 K/ L 3.5-10.5 H (test code = 775) RED BLOOD CELL COUNT (BEAKER) 2.91 M/ L 4.63-6.08 L (test code = 761) HEMOGLOBIN (BEAKER) (test code = 8.2 GM/DL 13.7-17.5 L 410) HEMATOCRIT (BEAKER) (test code = 26.6 % 40.1-51.0 L 411) MEAN CORPUSCULAR VOLUME (BEAKER) 91.4 fL 79.0-92.2 (test code = 753) MEAN CORPUSCULAR HEMOGLOBIN 28.2 pg 25.7-32.2 (BEAKER) (test code = 751) MEAN CORPUSCULAR HEMOGLOBIN CONC 30.8 GM/DL 32.3-36.5 L (BEAKER) (test code = 752) RED CELL DISTRIBUTION WIDTH 16.5 % 11.6-14.4 H (BEAKER) (test code = 412) PLATELET COUNT (BEAKER) (test 219 K/CU MM 150-450 code = 756) MEAN PLATELET VOLUME (BEAKER) 10.1 fL 9.4-12.4 (test code = 754) NUCLEATED RED BLOOD CELLS 1 /100 WBC 0-0 H (BEAKER) (test code = 413) NEUTROPHILS RELATIVE PERCENT 83 % (BEAKER) (test code = 429) LYMPHOCYTES RELATIVE PERCENT 5 % (BEAKER) (test code = 430) MONOCYTES RELATIVE PERCENT 6 % (BEAKER) (test code = 431) EOSINOPHILS RELATIVE PERCENT 1 % (BEAKER) (test code = 432) BASOPHILS RELATIVE PERCENT 1 % (BEAKER) (test code = 437) NEUTROPHILS ABSOLUTE COUNT 19.13 K/ L 1.78-5.38 H (BEAKER) (test code = 670) LYMPHOCYTES ABSOLUTE COUNT 1.07 K/ L 1.32-3.57 L (BEAKER) (test code = 414) MONOCYTES ABSOLUTE COUNT (BEAKER) 1.45 K/ L 0.30-0.82 H (test code = 415) EOSINOPHILS ABSOLUTE COUNT 0.15 K/ L 0.04-0.54 (BEAKER) (test code = 416) BASOPHILS ABSOLUTE COUNT (BEAKER) 0.16 K/ L 0.01-0.08 H (test code = 417) IMMATURE GRANULOCYTES-RELATIVE 5 % 0-1 H PERCENT (BEAKER) (test code = 2801) POCT-GLUCOSE [id number] 01:17:00 Test Item Value Reference Range Interpretation Comments POC-GLUCOSE METER 80 mg/dL 70-110 : TESTED A T [facility] 6720 (BEAKER) (test code = NORM [place], 1538) [address]: Stock Driver/Techni won ID = [id number] for MESERET ETSeptember [id number] 22:01:00 Test Item Value Reference Range Interpretation Comments PHOSPHORUS (BEAKER) 5.1 mg/dL 2.3-4.7 H Specimen slightly (test code = 604) hemolyzed [id number] 22:01:00 Test Item Value Reference Range Interpretation Comments MAGNESIUM (BEAKER) 1.9 mg/dL 1.6-2.6 Specimen slightly (test code = 627) hemolyzed [id number] 22:00:00 Test Item Value Reference Range Interpretation Comments POTASSIUM (BEAKER) 4.0 meq/L 3.5-5.1 Specimen slightly (test code = 379) hemolyzed PH, [id number] 20:14:00 Test Item Value Reference Range Interpretation Comments PH ARTERIAL (BEAKER) (test code = 383) 7.49 7.35-7.45 H HEMOGLOBIN AND [id number] 20:04:00 Test Item Value Reference Range Interpretation Comments HEMOGLOBIN (BEAKER) (test code = 8.1 GM/DL 13.7-17.5 L 410) HEMATOCRIT (BEAKER) (test code = 26.0 % 40.1-51.0 L 411) Stock Driver ID - [id number]-GLUCOSE [id number] 18:31:00 Test Item Value Reference Range Interpretation Comments POC-GLUCOSE METER 81 mg/dL 70-110 : TESTED A T [facility] 6720 (BEAKER) (test code = NORM [place], 1538) [address]: Stock Driver/Techni won ID = [id number] for RONAL BROCK Tissue [id number] 16:48:00 Test Item Value Reference Range Interpretation Comments Case Report (test code Surgical Pathology = 104) Report Case: [id number] Authorizing Provider: Trey Galvez, Collected: 01/11/2021 03:53 PM Ordering Location: [address] Received: 01/12/2021 08:17 AM Pathologist: Fredi Hermosillo MD Specimen: Mitral Valve, Mitral Valve (send for C/S first) DIAGNOSIS (test code = x2uqtZKmOGXqu2daTIVomY 3220) FuZzEwMzNcZnRuYmpcdWMx IHtccnRmMVxlcGljOTIwMl mdfgEmGZJecHIpP7Letihw WRpsWN0aXR9bsFghfBOxbP DjCQQmZbFot1mvd085cKOa h6wdUJJZvdhxxLu2oPcoN2 4hd2E6KvmaQ92jxGSrJFgh bGFpblxmczIwIEhFQVJULC BNSVRSQUwgVkFMVkUsIFZB BCLZVBCOJJ5CISbgpLZoEJ KDUiRJCg0WJWIDONPPHPZT EOxMUCTOFC0TNURQXlDGMS 4VMcykHIHJBX6HNyRRKPAp DuOEMYLYIODLMWFSV0QHWN BhciBMRUFGTEVUUyBXSVRI VSOMS4XXYH4ZFCUSFPDCMH LEHOMGHepQWLJKFGYAJ8MH EJNAB0YNIjKqdBEmiXyxvd ErEUvzs6WfZKigNPVbZW5j uTiwTDInUF7jUBBfA3xjlA 3fmvm3NhNcDXYgMpJ1BBHx afR5Dcf3QERyBMaik7reb1 AwAVFeVVk9xNsrOjOmERNj c6djnyGrZjNzPITuSCFeGN HwlNFjA223w3ixw8nlhqWx gIY7DHEyFDN1DFgggwGfxe V4UMmyxJXfZpW2VRdujuWj TDrpewVwmbGgWqh8ULGvN9 39QRY7bGtiy1ypSCO5VDDj AWReDkRoWi4wgBQzC718AF QqIBOZIGRqzRg1LKZdmmMk qmPtfKIGr757J913p9rfBV DntuPqgCcPhxaoz4skQ202 XHBhcGVydzEyMjQwXHBhcG FxxDC5SLCeKG5fycynVBov HNmnLXZbsfX8KTXwtMZkE3 LsAHAxAC4tcqsdZRF3LDzz OWGvFMX8WpLxMOGpq4Nipn m4CvEreo8rbx74IRK2d7Sv dGnmEQW9NUJ9MwAbQc8pzX OzOJQfOU1fViBxbSFpVPBm nn62jZjvMHmxKOQ1TTDbcr Loa4Qjh6kiPaKdwaGlW0tp V6NrDPBcAMXzHDGpWkEyra Ngs9Rpr9GlcIMctUn2y8ax WQFnBHArgKwxo0mdDKS3RM FwjYYhO6dwhF2pHDXjLD6q gdnbo1yeAVjiJZbbASOnvI S6ggP9AWYwnCYgO6ZtgD5v IFVkCWqqBKCzdey8FjToZd 9vdGVyeTcyMFxzYmtwYWdl XHBnbmNvbnRccGduZGVjXH BsYWluXHBsYWluXGYwXGZz MjRccWxcbGFuZzEwMzNcaG ljaFxmMVxkYmNoXGYxXGxv R8ufEhZrLtFnGta5KHVjhN ImBTEqJae6VZJcmBJwJBIC dQkjeA1eRWRsaNbrtE9mcE G9AAPhhyWlnRFDbG2dQMVW mK3aQyQ3KjQcDyX3HZu4TP FccGFyfX0= COMMENT (test code = b2vrmNCqCUNywWJ6EiPdQW 3359) Hvb6vlx4LifPXisCQzZNia ePMqyzNmtq88wTF7cO93ZV 9iRVUxPhM0WIBxckT7Eps9 JWMnTHPvwLIdB187b2dat9 vsktRmpQL7cIzqNUEaYFJk YWluXGZzMjAgVGhlIGJhY3 ZfwjbaSLMkmsAneI4gZGDt mxC9xPZadyRfGZBdqJsgld QicsFaTYGvJE1wgfP0IHKg MK6qZLNytjhtNah6RSE9XK ddgK9fVVcxoMddgNuhy3Vm MBwdIG6pMMH3HRzzzvQeio NvN79UZFP8BFtqshbnXhE9 WQVeBKLdajHgv15qbnKfhS Cvr1VbwT1mm7h9QLxeEBFi QYIto8AgP26qA5tiCXvbDJ J9 CPT Code(s) (test code n8xllSSrXUYnaPF6YvGeNI = 3357) Qbm0fxh3KhoLUywMHnIPjz mRHsjdBdji27mOG5kK54KR 9vBFAqMcO8IALokzO4Iej5 SXUaDURyyGTfY088z2mcd1 fonvEymWX2nZemMTSvJOQk CLliPGImJxGeKPrpNXR3JR y6VbKvCSytZ2rwLHV1 CLINICAL HISTORY (test e9vrhMDaPGPppPP4SrDmIU code = 3356) Goo6hls9TakXRgeTMvNQvs fHNbivXjfq72oLP7yG15RK 5uUXDfMvW8TBDatwB5Pxk1 GLCfCORguZRhR696b1unk8 uqudJxuKE3eOnqYYOmNRLj UIucUUQlTmRhJR4di9Hawe QhjJnfSF8lKF4ktQSnxAM4 MXe0KMNpjRDebY== SPECIMEN SOURCE (test e8zhvSIxXQIohLE7XpOeSV code = 3377) Pci8wmt1DdgKIeuRGyKUnx rSIdspRvew27eQO0sN91JD 1xMGLtZdH6LDUvzjM4Tzv2 LQKeHSAnaIIhQ792j5oro7 akqvPptRG1lWpaGYFxUICo ODpmKESfGkQqCSc1fcCbJV ZhbHZlIFxwYXJ9 GROSS DESCRIPTION (test r0vuhIUnZWDgdVKqExVyYR code = 3366) BtFMOaz8rxEPYvnANnVaHd MzNcZnRuYmpcdWMxXGRlZm Srm6hjr404oKPsl6hjUUUA nugyvEm9b5kiSWCoMkU6eL XhKDgbR0bnodWgkUIiAPPs QTx4nQ45KZZdtH6boFJcAK gfoaLvUrO0PMkeHXKkCnM9 XBXebKWgQDIhP4jkNAOhZL eeNQXxRCwezTWuKUZ8tKgy l7S3zZVyvTFkvDprPwKjZl YuBHJVe9YgCOm4oLkzD5Ku XILzBjZ2sPCwBSPfCQvwJM YlWWKlruC1zC39GBafgrG6 nHPfk9Yuu29vy328cS3cxJ QsWUM1NLQjSPXqbLToZFNj UWB2OGRczBKvW2w9EkHbgB NxR1Z8DwChcZGaM0M0LbWe jZSgW1L5VdAwvTXhGHVkzL RzHu3yyDBguSTavp9rkx73 QVV7g6KzkLouIDD8CWV6Fg VqTf4gkTBfCBIhFWGqoRTc RTBcUE9vhCXwLJTpyP6wnt xjXHBnYnJkcmhlYWRccGdi jnGhPc0emUiyZGP2RKqwN2 gkeW0yWnX6GBubQ4didQ8e JVc6JEansEI0UCGguI8jAT 1tuxmlj9vhUuKdYX6xvlxd u7xzGkPuUM4nbfj0w0tyDe DrBK0xplvna9arZdIgVRrs BMQllqjxYKReq9JbunjxNX Opl4CbN2FoiCdyH53foShb H11oGXZsoYvxlM6pmWtwxR 5cZjBcZnMyNFxwYXJkXHBs YWluXGYxXGZzMjBcbGFuZz EwMzNcaGljaFxmMVxkYmNo BVNmQIuwJ3czGhByGtQwIA BSZWNlaXZlZCBmcmVzaCBs YWJlbGVkIHdpdGggdGhlIH AayIeatiWzeiNzWY0xKUWy LFUgL8GdNRZrQ89oUZWntG 1iZXIgbnVtYmVyIGFuZCAi bYq0rjAwUJSoeRFzMjUfab WjESGcBYT6WCPlFXE3VLUp PNYipQHfO6bnQZdogWCvc8 YgdGFuLXBpbmsgdmFsdnVs MPPavHkxv8BvFSwrtMraAC B3FDJdBDKdA9Bcn0CdgEA4 ddEvuYTok3OueOXmJ1tmfv ErXDV5HB4pwX7gOI2fCAba IHNwZWNpbWVuIGlzIHNlcm lcsHo2YHOlR8Ypv76oCYW9 ixUlKECgUTeoGxCmD8q0OY ieiMgbcgF8xsV3WH7nGAHr ww1nYRK3oEFgwCQtWQDyvb F0bJMqDGCgtRJuGieyTFOj s25zEI1kPIR5ruuzCfL2cA C3raRaYzGvF60xQLOrlYNy i6XnkVK5lDPpEQUyH3Msy2 2yLZDfMUXljICuiNG1EKUf iC4cL2Kkj0T0kSMoPKPzWm 6dmU50rN8uAIOugPNhAZKz M9YiX0cvlKWibFmabc7qAV fZJ2K7BTDvqg4= MICROSCOPIC DESCRIPTION e0ylsOXsRTVuwHC4VcYiYG (test code = 3371) Max8wbw0IwtSUnsSWiFEgb hLQippEcsa44hTX9zO89DG 5qDMYsZyS3FSAtpzX8Ewt6 KPQqYVOugCBsY203u6uln0 tnznZroCO0jHnrGZFqHTLd BQxsZSFrLtNoMMFdAk1evJ VkXHBhcn0= SPECIAL STUDIES (test d1ldjXKxYWCmp5zeSQFvbS code = 3376) FuZzEwMzNcZnRuYmpcdWMx UXzcllIiNLcrx7VyP1TdHe AwMFxhbnNpXGRlZmxhbmcx VYRuLXT6wuTqAIHoBXlbKE QjILleDb4mxVNuiDbgUkWc YROvr4okwqJChrppwKx0l8 tsWFVeOgH2wHLtEFhsH3db keKpmVVmV1GafJHwcHh9z6 dsCfXhMpG9rGExRAuzW4xs cxUuwMTsBLToUQa6tW40OW HwuC0nhHByUPqttrUxBzY1 YBzpFICwMsG8RNMlcFRkJN FvG5ooQLKmOLwmKOQmVVdq kBOdWGX9rPmxp5M3sTBaoQ BgfUlgRnYvXkOpXyHXh5Jj QEt2mKvyG4ZkXRQmRfU3uB QgUGFyYWdyYXBoIEZvbnQ7 lAltjlUsy94rsCZsJHMkRI ZaBbLwyInoRIRjJFRJu0Vb kXdjRMB3tFa0fNrlBzheLS K2Dmw0OA2fae55swf3eQcp XMQtybjrIoR8DEmiSLKhin kkSMf5LUrmGUCzpLW7HEAd iAHjG1MnLVDvHX4ibdw6IR W5WYthPIFmCxP3APLskJIr QFKloFqhBEsro666UIA7Mv MsLH7aT2Hlo3F0sC3gqWUb QFLzjUBeDiVdZDZrgz2wjL AkYEyai8LgAQY3lbH3wXYu sMIaLXXzWR58Zgefe9JcVm jmh4RxJ22yxCQ6TZavm2fh SY3uOnY4wiIoOFtts8ksxE 5aShZ4RZwwBH3gGG6nXTXx gS2nlkfxCKOgAdFfndgjDC UtjGmkvuIsIa6tuHlaUGV3 BDkoT9hxnO4nDqN0DLnjJ8 avmI5wJQt8XXguwRV3URUo gE3eLO2zhiwun6yqSKsqDY jeNKMtnqN7rvC3IMMlwPKn Y9GbuK9qCPDjCZ9haqkuj5 qnFYS4JWtwVQNvLNU8VuTq BEJja8Zluet3RyEyh5NxuY QiELktI11dx257MRTzndIe V2vmgFJwkkvwfKJpharbIQ bmiqE0RRDhEFKjUGuxAMVp XGZzMjJcbGFuZzEwMzNcaG ljaFxmMVxkYmNoXGYxXGxv E7xkKcWtU0SfRBAfUrEjYD uxOCwriLRtgKQtwFW2sS4w XM0uPFEzrPCuD1KoIFVlvr RkpCFwNSI7kUOcoSPjSB5g GFkesZNye1qtx1UhX9imgR atuUI1RR4vXVXbBDGsBDav u8YqwL9eHmjfpHAjdbjxST xmczIyXGxhbmcxMDMzXGhp M8glPrTxDCGtfJxdDVijr8 NoXGYxXGNmMlxmczIyXGx0 cmNoXHBhclxwYXJccGxhaW 0nTcFoPrUrRxtfHY1bLSEz G0kyoAPkANFxNLWwI5aqUy ZuqV4gsEqdWYcmPxKjAaKj AnDLj927sa5bASIrpQDruc FCyDAfyH0wTNnbQRqoOJqn mMQkGQxxx7pvOHWhr3i3oS XdEMYklhLqb4mnVFwdzhGs SSNjkXAvwLOjWYKzy87pIN jksNuaiAyoCWWqu7FydJer y5AzGvXrSRuai8JhN79jdB JvbCBzbGlkZXMgcnVuIGFs c23kt1crVUVuKeY6zZVsrU Y2bQQzrKSkk7FymOjdBQEn j8inCKXmqk0yugysjMFsn9 JruN3vyomaSQjevGUxrlCd WSOfr3f8fBKfQWOlUEXyTI dkwGy1ZVCco948hc9jxyE8 wXTzGHM0IVwrLXOtSHOtqp UgZXZhbHVhdGVkXHBsYWlu XGYxXGZzMjJcbGFuZzEwMz NcaGljaFxmMVxkYmNoXGYx QIzoN0cnEnVvX7ZyJCZeYn XloQXjY0pggCRjPYKuFYwo XGYxXGZzMjJcbGFuZzEwMz NcaGljaFxmMVxkYmNoXGYx RKokO0hzPvNtG8BeZPDyNc IgIFxwbGFpblxmMVxmczIy LVqdotxyHQMvXDsoE3diTv UyIAWklDljZSdit4HnWINl YFWwVjwzsnTjVIz9fiPqFS BhclxwbGFpblxmMVxmczIy FVyczatxKDSyZVjsO9ypPs ZbTSQiwWpkQAbid7LoQDQc XGNmMlxmczIyIEltbXVub2 izv0YvA8hkbEgxlJL7UEQq B9gryMCfwIY2TLY2nV3sXX ydouDtBUOfz9OfVJWiVAIn PcY5tL4bAZW6SuIBmShlOG BsYWluXGYxXGZzMjJcbGFu ZzEwMzNcaGljaFxmMVxkYm CeUEKeIXroH9nmQsWfO0Qr RUMfUvPqeJmaUEwkFPa6Lo xwbGFpblxmMVxmczIyXGxh vjmkRDLiHDiiJ7kwWxYdFZ TscQhtDWtjj2UiPMOrAICn MlxmczIyIHMgTWVkaWNhbC OBDZ37ZUIrGKFuwJlmxX7b wOLRUBVvgbW9x2Y4EFdcCO LoJMp7MQrrbqXfVSWctL3c LQKtTP7jBBd9xqBpGNPis5 QyTA7wKJShoYYbXPQ5FBJw z5YuH6Yrn9CqUBCxDHMaxs 2qrqVdXoGGeDLtLLUirq78 JKOiLW3yW6xxBXGlCSMshm QibOJyp4ScSTIyeOB2pWIm BU1FTsHZk28lTUXvVOAQjq HhWCMelBrkwJK6izR0wM6h LiBUaGUgRkRBIGhhcyBkZX Kbrk3kkrVaCNKoNNVxa7Qu uAZgeSVdqfRgN9Hwc8TcNQ Gzyl52IFcvpRIzbo01HO5a I2Wrn9VsbI3fVPwnNIVpd0 RklXVckVPgQSBds5GgV8tj sgjfEJgbfLTuiG7dAMYuQD u4YESfc9XzEJGpa3AmRcIy rgYaRRPoVGLnWSBtjX55LN S7tMoolNucbkSjOZ5xRUKp izArODRhQDHzdP2jHXpbzm VzXUAulaA5c5F0UNsgHUPx ytBuXtffRZG4nvCbsuJ9qH RwD1ocgcwoWHwgDCYyr8Xx xL1hlOWSkHAas3YbwTQlpY DNeVNtCS8wcpDnTD8zDKL9 ODggKENMSUEtODgpIGFzIH W5ZZydGlzrNJY1osMjPJJy e5BiJZqnW4tgL19xvKejsN p3cQTdfLmusLPbyXMdONRl lhX9r9B4IYHls7RmssjqKV BsYWluXGYyXGZzMjJcbGFu ZzEwMzNcaGljaFxmMlxkYm YpHZGvSYlnN9evEcOeQtVo ForrKLA3fN== [facility] [id number] 16:48:00 Test Item Value Reference Range Interpretation Comments Case Report (test code Surgical Pathology = 104) Report Case: [id number] Authorizing Provider: Trey Galvez, Collected: 01/11/2021 03:53 PM Ordering Location: [address] Received: 01/12/2021 08:17 AM Pathologist: Fredi Hermosillo MD Specimen: Mitral Valve, Mitral Valve (send for C/S first) DIAGNOSIS (test code = [id number] 3220) FuZzEwMzNcZnRuYmpcdWMx IHtccnRmMVxlcGljOTIwMl sasgYbEPYtaLLqB0Mcjrtw LWxoUZ6eVF8asMloiSPuoR XrVKVeOzNoa0qse471iVEf h2hbWFTZdlpomBm0oIewB9 0cd8S1BqwgC09wrRVyTIzm bGFpblxmczIwIEhFQVJULC BNSVRSQUwgVkFMVkUsIFZB SXLBDBINPS8OIMbudMSwNE BRRmAEBn5WABDYMDAXMRIO AKzJAQWCKQ5TCTYNXmRWSD 0KElcuHCHWJI6XEgDVYPMs AtNVSHQRYAEPJSPZN0PJDE BhciBMRUFGTEVUUyBXSVRI AMZSR9GBCX6ACQOCXFJEEP CTCTLBQbmLHOHIPJPNK5VL LNYOS2TSDySvhVLrlOoojz EwAAcsg2LlOZqwESDlGH2h xZgtFYQoEF2nLJDaE2shaJ 1qezu1FoVzCJOeZeM3ETEt gyJ5Nvy2NFVeYOifv1vzl7 KcFIGmCMb0xRokMwGoDMAp o7xccgNyToPdTXKeXPRfEB FppZMaV990h5ujs4eihyJf vNS0SNUdKUV7OWouhdKgyi M9YWvofYIuGyU1FSfrotLy TYozeoOiqqRcCin7XJUrU7 94BLR6iMhpf6vlPYN6BTRg WSBdQgTqOa3roRWkE576YY DlNTATJSYssMa7NRHwrrOm wiRxvLLWj025N999b0btJP EvqnOpbMtHhqscu0gkC807 XHBhcGVydzEyMjQwXHBhcG FujOZ0HOTxJH6ilqmvIXuf PTsbBANdqsR5ZTDcaRFsK1 EdPSQmFI7pgaixGET0GGhg GMBxUKR1XoZsITPjo6Qcfh o9UdHabq6xlu95FHN2x8Ve tUgoNYA0NOF0TfZfXh7imZ KrIEPjVU8zCvDfbDOcKSWh dl85sPraYVwbEYF9PHNzdl Xbc6Lwv5gbZoKxxoOhF3ny F9TyMNBiCKWxUIUkAnGuvv Ucj5Lrb1RfoOZefOu9i1hl EFXcDSKnnMzon6meQGR3KL KooTRdV8temE4jGUShVG3p fvtsd5ecQKbgYMaaFJKvrS O8siA8AQRazVGfL5OllW4m PMXzRMavWISblyz5IrBhEc 9vdGVyeTcyMFxzYmtwYWdl XHBnbmNvbnRccGduZGVjXH BsYWluXHBsYWluXGYwXGZz MjRccWxcbGFuZzEwMzNcaG ljaFxmMVxkYmNoXGYxXGxv G0mvNqAyLdTdXab0OBKmmO GnKZXwZmy4GHEclZVeZADF sFzhsN2oGBFhtWtypE4laQ F0IHYivqKtlYWHgG6bYQOS uC2tAaJ3AjBpZyH7DAq7EI FccGFyfX0= COMMENT (test code = f9pwsWJvGPEfyPH8AvUgLV 3357) Mwu2bxl0MusZMqaCHmAJrc oYHduqOwgb37yPY9iL12FY 6iIZJfGmD1NDMvdyT9Lfn4 SJKfGUCpkYKmY541g1aqm5 mkmjEglVV5dDfvOPAjDECf YWluXGZzMjAgVGhlIGJhY3 OuishhJVPhytXsjP3mACBn mxE5dSHyhnJdJZTnlJxgth NnxpTsXTNcQC7vmeV2SDFg OI5wNSQuvnbwBfn8CCK3QD qqhB5zAZyphDvrvWtep4Nt RPvlOY5gGLW7AEyuksUtdo GnX87RMRU6YPxccxcyGkH5 PCRgJNLhriBox75xqpWzhW Nwi7RhkG0xu2i5REnmHKWy LZUsz1FuJ74uT1omNNgdRN J9 CPT Code(s) (test code v2tasFGxLEErnGK2TrFdVG = 3357) Dqy4zdq5LevHBegMCyRIkm cALizwRwiq39jCW3nD83BU 7jEOXwRgJ3FHYkitU1Vst8 QPEjFHPqlJKdR405v8rkx9 twvlQbuJF1dSbxAXBpDCHf AMzjYDPaLaCsCLknLCP7TT e3GtZiEJyxU1jqVUY6 CLINICAL HISTORY (test x5iucEWgFFTdbKH4WmNyAL code = 3356) Xhc0gds1JqbSNdjBPoMGtx tLBtrnArjn60eWQ2zP15NF 1aRPTaKeI3KUIxwoG7Ain8 OXZqEPMlnDQrW527w5uxy1 frwvHooUE4eHhjANQuNWOs HHziNVJeXhGlGP1ub5Kctx CgoAwnGR2vOB3xaRNnmFQ1 LSy0CSDkdYNmiD== SPECIMEN SOURCE (test t5urnNAgYHQflMC8JcThIM code = 3377) Plu6wpu1TjlWLywGVcIBtt aCIgdkZuqp62fTY4sD32AF 1sCOGhWrT5JTWnxrF3Jzi8 HKKfKSHnyIPnQ293b8lbi0 qqknAjfJL8xWbqLRTcQOMk MCekTXYmJpUyUVc9wbDmJI ZhbHZlIFxwYXJ9 GROSS DESCRIPTION (test g9wnoBOrLVXmhNVzHiMnAZ code = 3366) ShBAUub9mtFWTjyVVlZhPh MzNcZnRuYmpcdWMxXGRlZm Pub5qvi198bSWze1gbWCUI adqpiPg2d2bvFWKyLrX6eR FtMXckE9llwfVleYQqNEJw KBr5sW05ODEbsF9voWXaAG fwwwVlLsQ3HVlpKDRzIiN9 IDNadLBdBUIrR1dcHJSyJY kbTWDdLXwwhMEdCVN4vTzu x6J9eQLinYAtrJevNbUuLc CkKZQDm5UpOCa2oYkfN3Ta OMXrSjQ8yPQdNNCjYHphBB OmKGLclxM1hS76PFsbbxT9 pLVty7Hbt41ej026bO2mpF XgTHC1DDHpAHCgfUDuCKEl CZT4EAVjoFWwJ3f5LsCwyP YkC7I5YdGzmXPmK8L4LeWr xGPdN6F5OdLjgKHuNISghO LhNe0cfLSuyAZofw6oeo70 UQI9u9DdqBfzTKW2LUQ6Wk HfCq9trMNhOZWfQVPuqFLu OXYeFB3iaHAnHTZfbU9bsx xjXHBnYnJkcmhlYWRccGdi jlKxXa4iaLoiISW1PGiuT1 upoD5yQnM7EAayN7ythV3u AGl0RNnmjID0EXYgnI8nHZ 2eemrir8flDmEcRN8zhgpy v0laWgMcMN3fstb6n2kkMa JqHX5jywtlf0ikPfFqGJtp AQBneosmSSVdo2DnewqvMH Ziw7XiK7QwqOmhS92wbWgf R27vLLXfyEaoeZ2raFklrM 5cZjBcZnMyNFxwYXJkXHBs YWluXGYxXGZzMjBcbGFuZz EwMzNcaGljaFxmMVxkYmNo ROYlTWdfT6laLjIzZeAkEX BSZWNlaXZlZCBmcmVzaCBs YWJlbGVkIHdpdGggdGhlIH XduAmjgiBbrpNjHT9qJVLo LXMvE9WmQOXdL12fEWNkuK 1iZXIgbnVtYmVyIGFuZCAi aNv8lzWdCDOolTIbRyNaep DcYZRdCWS9SRQdHIN6ZTVi ERRwcLCmQ8hjZLbowWFzt6 YgdGFuLXBpbmsgdmFsdnVs BCCfvEpsu3KmTJileZesDM V7QBQnPSRnR2Ryw1LkyET5 wqXxrLKij7ZszRJxT3dvau UjWTE1PX3vxO8eRZ7xHXrd IHNwZWNpbWVuIGlzIHNlcm hlhSf1RHAiK7Kuo14nDJY2 pjIkTVZgCZlvEqLtO8d7QU dktEcgivQ1qsL7AS2fWFZo lt8sNIJ7fDDiwSRcSRRqxx W1iBSdGBKkxJSyYnsoVJXd w09aCM3gZAL4ibvlEmW6mK Y6bjMxYcQvB09lJVFjwAUk d7CqiSU4qJBgNDBcQ3Jqh2 8lQOEcHXAsdNEeuMN6TUXp oF6zV7Fcl9I5kBQqBEKyMd 8pkM48dF3nZMMziHGgLGLc M2HwR3qglJIfpCnoed9aDC dFU4P2TDMrmq9= MICROSCOPIC DESCRIPTION j6weoQUiIUHmwBZ3XqMiYD (test code = 3371) Oxv5jtg3FrcBOjmIYnLMvv rFZauwQnul47nHB9cH56RB 5eYOSoImN6JZZcqpV5Faz2 FQJiEUIoiEJpE907d7nms1 dzsqAvkOX8rJkcJAOdKDOe OZvrMKSpHwWqHUScRc1faT VkXHBhcn0= SPECIAL STUDIES (test r3rjmQWyLVYej1zyPDSibM code = 3376) FuZzEwMzNcZnRuYmpcdWMx OLypgtFrDVnjg1HfN6DlGh AwMFxhbnNpXGRlZmxhbmcx PYVxZSZ2qzGjOUSzYPveZC BhVQvdTq5ldBBluGunRyOs SKQbd3hhbgGNztjtiKe5s7 gnATCiOhE6aTZvAZnbY9bp ijVvyCBtB5HilNHhyVq3e9 xyYdZiBoI9fTHcGSunO6ul rwUbiANdVNRvCDu5tO73QJ AswO1lkMAcCGdfeuUtIgT4 NHcnGVNoNeL4XLCkcEFiUU RuB2ppFPZzBVjqOHMiBTzj iEPsRFM2tAzxm6G6gTZilN TbdCmgBrAnQdKbSpKAx1Vq HGv7wLzmB5JxDLHkRaP0oZ QgUGFyYWdyYXBoIEZvbnQ7 hLakgoSaz16yyHLkQZRcIU NlYlAihSqfSAZpWEONa0Gs jRudZTA2tNv7eJnwUgddHW Z5Pov2JZ4lgs05mla1aOcy JWBzptmoXeF5GMkiHCRigg sbWOt8ELnoLXMynHL9VGUj rNGqA0WxGRGzVU7mhjl4KO T4BJrtESWzKcD1JBWlwKXm UFMhsFjcVFajr067QFX3Qp QpPA3kM4Fiz6K0bN9vnVDl LFRtfVMfHvOsDMEzhc2evR OmSHacs5EtQUX8nxY8aQTo fMOfWFPhIK02Zxdim6FmQd kpr9JaR79vgBA1HTboc8ch OC2kLlE2dyPsJHdzn0blcN 6kArY7NWomVX5ySQ4zQKBc bF3sxhnkHCLvKiEjalauSF KkfOqkheUfQy4ppLvsGMU0 KIziM3hosF4zFiZ2DIrgZ1 hsfL7uMXx5GAaruJX3OCBv iL5tDY4nixerb2zpKYjrCX arZMZqhcB0puG0YJBpnNIy X8PyxF1rLAAiGN0cdesvr9 bjUUD0QWnpXEQhPYC7BlIf EYByo6Fpikw3FsAeo2OidL GbZQaeO83of274RSXniwHx P9sbyIGvelnfpSQovgjcEZ cxojA0QGZtCAYkWKquKBSv XGZzMjJcbGFuZzEwMzNcaG ljaFxmMVxkYmNoXGYxXGxv U6wcCzGvM9NyIULdSwOjRH snXIxywJJceWEqtDI5qP4j QY3vBETwhKFwN9UdYAIguu RjbVPmSKQ7oYMgvNXlFW3i UJsmpOMyv4asp9SlN3irwS dcgND9EM8zVUQiZFLzGOwv n5EavD5mRengfXAviiibDW xmczIyXGxhbmcxMDMzXGhp Q0chBdObPHHeqUaxNPemg0 NoXGYxXGNmMlxmczIyXGx0 cmNoXHBhclxwYXJccGxhaW 3dNaDrZrOoUkbqCJ0mEZVv A7iujNPrGNAuPRXwX6clMv EfiY3wpDedFJffDiDjYuBw XkFZs732yf8uWDBxtOKsqd OVzXDfmR4zYVnvOZiwNLdu fCAvFNuni8agVFWcb4f7eJ AhUOSxvkXcv8hqEXpdncWf LKBxyGEerHYlENVar02lBU gmkVlznQexCLJif9YsqJys o6SxYdTuRCbon3SnU58juQ JvbCBzbGlkZXMgcnVuIGFs c73ku7jpCPAhFlV0hXQejH E5nJVjkYZst8DniAyvZYWl a6bqAQBuwo7bbkolbMPgp6 OyqB6fwanxGYgpfMBgdgDs SMRtc6d6kPEmNXIvYNKxZY gxbKu2XFVyc525as7ofgE4 eZHuGPX5XMcdXCGtVHCfsa UgZXZhbHVhdGVkXHBsYWlu XGYxXGZzMjJcbGFuZzEwMz NcaGljaFxmMVxkYmNoXGYx WSnqC0waQaGvQ8OrNRBtKb SpuPXmV5ayhERbPKOmACml XGYxXGZzMjJcbGFuZzEwMz NcaGljaFxmMVxkYmNoXGYx RQnfM9qvUwIiC9RrGODmNc IgIFxwbGFpblxmMVxmczIy JKuewtwxWCCzLKwlF8cdUg InJNGstMtcYThgy8MtNEPn PPKmDudndjDaDKv2uyHvJF BhclxwbGFpblxmMVxmczIy HBfyxrrhRUNhSOvzF9mpGa WeYUWmoFisDVxye3ZfZAWc XGNmMlxmczIyIEltbXVub2 iin6QvH1ctzSidhYA9ZSTi L9pgqZVjfUM3QWI7fV7fYG yjexUtSEOmd0CqPBPrMRJa OdZ5uZ7hZQF5YeGHiByiWZ BsYWluXGYxXGZzMjJcbGFu ZzEwMzNcaGljaFxmMVxkYm DeNRJjTEgmR6rsOjKsO2Ur TBIoVzFypPjjJUglOZw2Eg xwbGFpblxmMVxmczIyXGxh jhevDZNaEWilK6drOlKfVF NsqBrdMGqpj6YrXFXqBDBh MlxmczIyIHMgTWVkaWNhbC OUAI96EHAkAPLkpSshcK7h hUJBEZBgskN9l9K2ZFzoBD KmGUp2FVumurKfJRCpgS5f OBSlZW5rJNa2gjFpOEDod3 TyDC6zUXLuhUNkCTC7XALy s4OxD2Mca6TwPUDdYNAsxb 6yumQwJgWRvODkGNNrma23 ISKmQI0jF9llQMPlFOIwqv IbkVDuj8LuGAZnwJH1tGTa WB8AVjCFg94xANDvRDIGzw ObEURvzIvjfRH3vpA0dE9n LiBUaGUgRkRBIGhhcyBkZX Bqzh9lxfQtWCBnRSRkd5Ja nANblYWpcqTtU8Oat8YmEK Fhee87GEidpPCrmh67WQ2e S6Lyq0OvwJ8tGUpbOXWua2 LxeWIlfWOpEVPfw5MgN4jx buzqOYgoqHUhoD3eHGNcJK d7FZBir3PyKXVsd7XoWfTb kdYzIKAsCOGxPGEjnZ07YK Z5gDvphVtcdjOyHY2bZRAu zoZjCJRzRUWthE4ySIduxf KeFPUkcsH7y6J1PXjuKRRg mnRwNlwvCLV1moBdlnM5oX LmX3ikzppwPPwyHMLwp0Gq wB0dqJOSzSZjo0WgbIOvyB LHjADhBZ0azzZeLN9iSLL7 ODggKENMSUEtODgpIGFzIH E4LCxdShqcAUO9skGvBZRr o7OvYIqwJ9oyV74acLmqkV h9oQWutDjjiJWxlKRkSYBi faE3p5L3NJZal1DcjskpYU BsYWluXGYyXGZzMjJcbGFu ZzEwMzNcaGljaFxmMlxkYm UeTLPyGKrjV1wlTtKkCpTo OwuiANX6cN== [facility] [id number] 16:48:00 Test Item Value Reference Range Interpretation Comments Case Report (test code Surgical Pathology = 104) Report Case: [id number] Authorizing Provider: Trey Galvez, Collected: 01/11/2021 03:53 PM MD Ordering Location: [address] Received: 01/12/2021 08:17 AM Pathologist: Fredi Hermosillo MD Specimen: Mitral Valve, Mitral Valve (send for C/S first) DIAGNOSIS (test code = k2ogaQGeNADkj7sdXCVycJ 3220) FuZzEwMzNcZnRuYmpcdWMx IHtccnRmMVxlcGljOTIwMl sryoXcRDSmnWInQ2Nrxyad OYvyKD3eVI2uqNzmjMPcuV UxVRWaGrFhy4bid815uWYm e1wfDAUMljvazEp8rZsiD0 4ef1Q5WjrhS95zlDIsGLst bGFpblxmczIwIEhFQVJULC BNSVRSQUwgVkFMVkUsIFZB ZVGGAOHCSC3NGRzdfTAuJW PEJmDKKx9BACLGKVPBKJUE DAkBGTELWL2YXDLXGlKMXR 8EWyohPOWYCD9HOzYUBZNs JkYYLBBHTGXPFHIFW1MYLX BhciBMRUFGTEVUUyBXSVRI VWGHN2LOHT0LVJOHUWXNVM ENTAJOUgbIYAKOMEAIU0OB HBKCS1FPEuSowVCvdRmomq GkICnim7TnGNrqNINeSV8k qNpmBQCfIZ6sCSOwS6nftC 3bjyf9VpEvOABrGeH6NQAk fnE5Lnw3GYAcAUkmw5nsm2 YzQYJcZXv4sCzoGoDxJKZd h6rzewXhFaFvXYQlEZFvYO BspYDlL128n0nlu3lzqlTx eIB4NCIrPFN2VVrbsbXevj D6TJmyjYPkPpP5KJipozYb JQcxvsAfpuLlYgm5XSSuM6 69XPU7xRari5qoRZD6ARXv ZPOgUgTrFz4yaVLrT769DM OmYTPMOYBmfXd3WZDwtnPv ioCzpXTQv156K583y5rfGF QskkDtmRrAorrfz6wpU872 XHBhcGVydzEyMjQwXHBhcG YvfQL4WUFaVH1nbdonSZtd MSsmJNFxidQ5VTVprOFuN2 WrWJYxKR0uoqefVLM4CZmc NVOiWGY2DbCqSPPyu9Ncif h9NhZuvb4cis37XMF0c6Gj lTglVFN5XDY9EzTnVb3edR ZxEPMsRJ3tNgVqnVZzONTd vu65oLzfNGexEAP3OUDwoy Iyh7Iei4feFbWyqhSoS1nq U0HxJBLdBXEsOVBaHrOfdr Xai7Bqb0ZrpGHqtEh6w9ej BWYnILGhgZpkk8suMGF3EX CjdWXuU8dfsP2zAGLlFM3u lnsgf5peZAwfMXvoPJXiiX Q7kiK7AREilTWhM8EvsS7t OMZxMObpHDEmxmm4RdJjFj 9vdGVyeTcyMFxzYmtwYWdl XHBnbmNvbnRccGduZGVjXH BsYWluXHBsYWluXGYwXGZz MjRccWxcbGFuZzEwMzNcaG ljaFxmMVxkYmNoXGYxXGxv H5tvXbVrLzRiTrg4KHLqnH UbRZIaPhl0RIUyqKWsUADE aWsthF9rAIXklTsfsK8hvS M4PQJupwUopJRKxJ0gIOPM uA1gVrZ2IjKhCwH9GUg2IN FccGFyfX0= COMMENT (test code = g4mcoBVtHSSbnLS1JoAaZR 9925) Uuh5qqh7PvdFEqbJXgIEff xHAyddZmne26vEB9pE87GA 5uVOKoRjO3WKBmkvF5Dyp0 MMPvLLZggWCwI181h7fve3 qizdWibOF9dImaWPYvKDTq YWluXGZzMjAgVGhlIGJhY3 RozfggROTxfuSxtE0uXJDv msX1dQKagzLrONXmvYadzo HwvaEjYNKqEM6suiQ2VFVr QH5mTFNwjpsxXgh7ZZH0VR nqzI7pNFsedQmtcYxkc5Ll FLxfQJ7dNUQ0WBslbuWwoq PjL06OEKP5GZemwzmpXpB9 SFJqZARiwsIzi74ywzSfmB Kbg4EawE6qh2u7KItxVDRk YZSrp8PyS84uT8myAHypNL J9 CPT Code(s) (test code i5wosTJiEALlmLR0FpRrXR = 3357) Frq4rku6QdcGWdzGOpFCmx aOMotbQtfx02cRS5mR44VK 0gCTLzJjC6QTKagmQ3Emh5 UVCzQPFkzJNfR582a5iwj2 adldKqbKQ1jFeeNULbQYQh HOgmFGUiBjFbYSxmQPB6OT s2KdXvWBqyQ3baGLF3 CLINICAL HISTORY (test d8udbFZyAXZxyBN9ExKgWE code = 3356) Tqf4zma9FtqTVvlGMxFZaq bSPiamQsxc69fUX0hI77IM 4qTYLsElM9CDOtdxC5Weq0 MVMiOTDsxJWhE458h3jak0 vrnzKjvEV6aZawHTCpMZTd HFrbCTThYfRdZU7hw6Tdlb VliQyeGF0sOQ9kqFZymXR1 KIy2ROLdsJOyqP== SPECIMEN SOURCE (test p6zatFXcZBSxtCJ3KdDzDQ code = 3377) Chr7smr4TrsBQxfZZvEIob xRXlddYenr24iWT7qT49AO 8rXACoVcY9SDJboaW0Ukt9 LWNeHDTfuZNyZ400i4ttd7 vgqnJwxWQ7pJtcXFVaEVAd JBsnSDQwZrCmRAj2ylGaII ZhbHZlIFxwYXJ9 GROSS DESCRIPTION (test h9zlvBFmRFHcrZKqZjAmEP code = 3366) VqMVNdw7byQCWwrVVhNcCc MzNcZnRuYmpcdWMxXGRlZm Siw1are552jZNnm7zaOVUR lsysvJf7o6yzPENrTfT3jG RlVCkwC0byhqYjkCTlHCBf FCu0vU00WIVbiX8uoBWpFO bahtVfHsB8IYptMHGcEeW4 OKOftDVnJDUuL9lmIFUtEY jkGMWrVBowaWWvZUO9uYkb b6S1xQEhaVNwoDifHfCmQa MeVNXHy4JiSFj3oWgjD7Xd NXOeXlV6jONeZMLaREckPJ PzQUKgvmZ7gP01FTxzreE5 bGWou6Rtr54ov014uF2wzM EtHVO4VRCqJHWjqGYuBZNb AQP3WNNgqJEfO4o5WfJkfG YyI3F7QzTnbAMgX4M6HbBo mFCjI6N3XgCotQFeSLBkyZ IkCh1tsFKgzEQmni7ops28 SNF1l0PpcMxeKMR4QQH9Mq ShOn2dhKCiZKJmJSRniMFd PKCwRN1iyHYjGYOodD0sjp xjXHBnYnJkcmhlYWRccGdi teEqGg7wkIlvZEF0IWgxN4 onrB0eXyR5STtqR8awdR9n ZWo5RJcvyRX3JYLqrP6bDO 8msuckj4ppJwPfID9amera h0fiHfCzUM1vche6h6qaVt CmKM2pegqdk5nbVkLoTJzv CDRprvrtVHFxp1AonsssDE Gnn3KgI5ZmpPwiZ31rqYkk V40nPDKeaJzerI9ofSkfkZ 5cZjBcZnMyNFxwYXJkXHBs YWluXGYxXGZzMjBcbGFuZz EwMzNcaGljaFxmMVxkYmNo GTLbRZweF2tvFjUgNyYnBL BSZWNlaXZlZCBmcmVzaCBs YWJlbGVkIHdpdGggdGhlIH YweEcfawDkgtQmFP4nBNXu EWQaS1GzOVQmR93qHONtdL 1iZXIgbnVtYmVyIGFuZCAi wAf6tpSeBKQqfTEcOwOtct CcZTXbUVF0WAZdZBJ8EVNt ZZDiwJCnU7uqCPeaxLRtp8 YgdGFuLXBpbmsgdmFsdnVs QUEtfCtao7PuFCopgWzhFG F3BUMaCWOhE1Izu4XtyXZ3 mwFcsFAhj3HgyPUuV5dtlj XxNNG8UQ4otP5dQI2pENzb IHNwZWNpbWVuIGlzIHNlcm hewJt3YWSwH1Aet04mIRC1 tiEaSCRmJOagDpUhH2k9WU rrgXbsxwV8noR3GF1aJMBz wy2xKQH1jAQjgYGdKUMutu M7zUAzPBCaxKTxPksoJANb k46mNM0rSGL0uvcsCiJ6jF U4hwFlDbRyG92tVJKnsJVs h6TkdVK8kYHkEQSvF9Kdd6 7uPKMwGZUvsJBuvHZ6GEQs pW7vV1Npc2N3bNSoRNMuUy 0tmG31eH4gMHSybDAtKTJx N3HyE8bfsLLtmKffbo9iAM hJP9Z5VNYbbz7= MICROSCOPIC DESCRIPTION m0bfnPTdTLRttLZ9WxJdTT (test code = 3371) Nhk6smu5LxfWZhiHLhLLvl wLTwisHbxj38vHI2mV18UT 6cSUMuZeV3GRCjwgI1Wtb0 DBBbCNSteDSbP527v1tuc8 mzotXbgOS1sWbgOPRdOXTl TCubFYRvTsJwENSqLb7qpH VkXHBhcn0= SPECIAL STUDIES (test c5ayoUHkTLYfu6ieWZMnoF code = 3376) FuZzEwMzNcZnRuYmpcdWMx CBquzbOlYSnrf7ToD3JwFm AwMFxhbnNpXGRlZmxhbmcx UJDnXUR1dkCxGAGeYLasED NyTPjxVn5obKNtlRqrLlOz LDFjt3hrooUJqnemmIy4q1 xbKZIwLoK4sDKcZMtdQ2ul bkWgpSZaN2NjsCQxeKu7q5 zgGwTvFgL5qPSgASmdP6uw nzCpiXCdXOOnIUk9aE74YU QrmS8cnIDkXWhqtxVqFbB0 KTzrKBOzXxL7RTJewYSlJJ UdA0ksGAImIArtSYPwWLqc xANwFHF4qDhzj0H5gFAnyD LwcGhpLyGsZyAlBbZPw4Za YLr1pDvxR2NpIARcNcI0cA QgUGFyYWdyYXBoIEZvbnQ7 dGrzwwDje91ljNVlRFZaMF UdJwFuvDduEKJwFQDEj0Fj rNaeOKK5vVm1uElaEqtmTH E3Yrl3DO0wqw42mpn8jZod JJPqdjzsVmP9NZbeIOFdda cnVUa8CPpaRJDluWA7RLCp kMLbJ1MpSDPiQB1jqaw0VU I0VNwwLCWwHqQ6ADEfuMZf ARQkdGsdFTsdq403QYZ8Ig ZhND0kI4Gxs5G1jF5hnKQb TMXpjSKuPzPoLQZskr0zjV YlEPpvg8OpDLO2vaU4oCTk yGWuKMFlNP55Kbhyr0TqMd wow4MbX51weYF4IOmby4xb FM6xRmE9srTfGAncg1eacV 6fIeA9OFqaLW2sJQ9eMEKk eW5mzcudLSMwTmMsehuxBL SlxIqranPzSs6ntFqkFJS8 RJyrL3xscC1hSwL4FPakD6 turH9rGSc9ANhvkMO9TTBa yO5nBE1buvpqd7azADluHL koIVFvvzH6gbA0ARZjaVTu O2ZnwN9sDMMnSB9qbuifp2 mhKES8YQevFZNlGXL0UbXn PZUlk0Rpsiu6EcDgj5QevZ LdEFffW06tm134GWNaxtUe D0aouFJaifrqxHXluuelSZ pjurK4XFGzMMWgONcfUAKy XGZzMjJcbGFuZzEwMzNcaG ljaFxmMVxkYmNoXGYxXGxv R8pdKwHbU8NiWNBvWgXqAU rpSImzlVSgqOHzgWI3nP5f OP3rJNPdvOXuK6XpDTIkcm EcgDIxPRU3rVEzpJZkYH0f YLgbuVSsa2zrj6WsO7mmiR seaKG6JB7pGVExOAXoFPkl x3EuxK3hAybzvSErbwchZC xmczIyXGxhbmcxMDMzXGhp U4zrQyZhEOEvkDsdDMflo8 NoXGYxXGNmMlxmczIyXGx0 cmNoXHBhclxwYXJccGxhaW 9kHrKhXfEmMmdzDQ2qOXXi Y7vlpQDhGDRyTWEqK2jtLh AyyX5bsIshKQpcDfXiIoNd ApSWr626oe3rRWHjwXJtlk HSxPBlmW5dPHncYNofKFyb vGAyKZmkh2coIAYyx9d8hP ZlIFWqiuRyl5lmAPtfkmHs LTWhmBVabFDoNAGly50rUK onsOvjpUvwKEBto6HfwYre g9SkTqZgVJtxq8UpA48ihT JvbCBzbGlkZXMgcnVuIGFs i22wq1aqRUPtNaA1hTSpjH Y1oBHrsWHjg4SwtQtwLIFs q1ooVOQpey0dnogyvOGpd7 BicN4oqpuaXNgtvZHfkmXr FLObr5b6jWDrROIsQDJyXT qggOg2ZUUlr000gs9nmrY1 gXWjXPB2QBpfUXDmWGJzty UgZXZhbHVhdGVkXHBsYWlu XGYxXGZzMjJcbGFuZzEwMz NcaGljaFxmMVxkYmNoXGYx GMwfC8bePbShJ7TtVVIwGe HpqWHdP2fuyXJtPCObSIfe XGYxXGZzMjJcbGFuZzEwMz NcaGljaFxmMVxkYmNoXGYx LMswL1eqNwOnT8YbYRBpJj IgIFxwbGFpblxmMVxmczIy OLztsqqnSWFcTBwsR0uxEe HbZIFvsCkzVArzc1CvFZQq MPNuBhdoxdWtGCz1ojQwEG BhclxwbGFpblxmMVxmczIy GPyfmkrdEREzUYfiG4tvZj CfCJCpkZguTDizn3ZvTYFo XGNmMlxmczIyIEltbXVub2 jjd4EkH7itgVzdiOB1NXLh Z5frrYIphVG2KLW6dA7iGT hfiaThXOQqh7FcSFRhMAPa KhW2uG4wWMY0DbJOvQybLV BsYWluXGYxXGZzMjJcbGFu ZzEwMzNcaGljaFxmMVxkYm QiSKHtCHsjB7xtPlDeR1Or WAFmMhKgfOgaWXrjMGt4Cn xwbGFpblxmMVxmczIyXGxh vitgIAFlMPsxQ9apXcDpUI RfdQgwTDqmo7GpDDMmKGVg MlxmczIyIHMgTWVkaWNhbC AIAU75WGWtCNIblGojjX5r yEWAZQPnrbB1t0Q0JKuqTZ FaLAx7KNuhbxLmFGEglJ5p RJQcTR6cGIn7buHgZGAcd3 FjFC5eZMEybEUxSLC7LDJp u1MxV1Eet8TgVBSjRGLpvf 7ihiNeJeYSdQMgCMVitr25 ACOfYO2cF6uuOECtUKRvdz NjrJGmy8RhRNUtaJQ0uYQl GR0NEpFDl93nQOKhBCVQjz PoBSUfvRcwdSX4bfS9hN8n LiBUaGUgRkRBIGhhcyBkZX Vvvu5dfvJiJHCkYRFrk1Rv gYYfnLIygfLlX7Gbg2MkCG Paba64WEmutBEtwu64QW1q S5Hah1PswU2rBOkkOWDsi4 AtuHLrjUSjDBOsg6EaY2ls arwsAJbziHArcT8cJVZtSO h5OEYky0CaAICbv8OuXgLi zmExYENiFCFfBVDkaL44WP X0iPgbcPohjoJwYJ6nBQJr nrIeLRYyEKErvR9pJZjdcr CkWJEowtK4e5R8NQinWAHp rjVtXbwwJNA3emEbdoT9iJ HnW1dsmnbmOBuhMTGfw1Ci gG7wxFHUkPMry4NutEEwnL YAkOAtCJ9vueAaVN5kFUY0 ODggKENMSUEtODgpIGFzIH A4THgkGtlgFUS0ukHiYQLb s3QwKGlxW3dqM16mtLjroF k5vYCveOsdlVJgeXLgCVWh afB5i7E9KOZea2NzmerzWC BsYWluXGYyXGZzMjJcbGFu ZzEwMzNcaGljaFxmMlxkYm JsCPAnEFkjX3krVnEaZiDx JtywJBZ7sH== [facility] [id number] 16:48:00Surgical Pathology Report Case: [id number] Authorizing Provider: Trey Galvez, Collected: 01/11/2021 03:53 PM [facility] Received: 01/12/2021 08:17 AM Pathologist: Fredi Hermosillo MD Specimen: Mitral Valve, Mitral Valve (send for C/S first) HEART, MITRAL VALVE, VALVULECTOMY:FIBRINOPURULENT VEGETATION CONTAINING DEGENERATED BACTERIAL COCCILEAFLETS WITH FOCALMODERATE CALCIFIC ATHEROSCLEROSIS Signing Pathologist Direct Phone Line: [phone] signed by Fredi Hermosillo MD on 01/17/2021 at 4:48 PMThe bacteria contained in the vegetation are degenerated and variably staining with tissue grams stains and GMS stains, but the predominant morphology is that of cocci. [id number]; 50127 x 3Endocarditis of mitral valve Mitral valve Received fresh labeled with the patient's name, medical record number number and "mitral valve" is a 4.4 x 1.9 x 0.8 cm aggregate of everett-pink valvular tissue with attached grossly unremarkable chordae tendinea. The specimen is serially sectioned to reveal bright-yellow to everett, firm, cut surfaces with calcifications measuring up to 0.4 cm. Sample Patternmaker sections are submitted in cassette A1 following brief decalcifica tion. MJP/ewPerformedThe interpretation of this case included the use of immunohistochemistry or special stains.Control Slides Examined: In-house known positive controls were evaluated along with the test tissue. These control slides run alongside of the patients sample show appropriate staining. Internal positive and negative controls when available are evaluated Immunohistochemistry technical testing was performed at [facility], Pathology Laboratory where it was developed and its performance characteristics were determined. It has not been cleared or approved by the U.S. Food and Drug Administration. The FDA has determined that such clearance or approval is not necessary.The test is used for clinical purposes. It should not be regarded as investigational or for research. This laboratory is certified under the Clinical Laboratory Improvement Amendments of 1988 (CLIA-88)as qualified to perform high complexity clinical laboratory testing.[id number] 15:29:00 Test Item Value Reference Range Interpretation Comments FIBRINOGEN LEVEL (BEAKER) (test 273 mg/dl 225-434 code = 658) [id number] 15:29:00 Test Item Value Reference Range Interpretation Comments PARTIAL THROMBOPLASTIN TIME 41.3 seconds 22.5-36.0 H (BEAKER) (test code = 760) PROTHROMBIN TIME/[id number] 15:28:00 Test Item Value Reference Range Interpretation Comments PROTIME (BEAKER) 25.4 seconds 11.9-14.2 H (test code = 759) INR (BEAKER) (test 2.34 See_Comment [Automat ed message] code = 370) The system [employer] generated this result transmitted ref erence range: <=5.90. The reference range was not used to int erpret this result as normal/abnormal . RECOMMENDED COUMADIN/WARFARIN INR THERAPY RANGESSTANDARD DOSE: 2.0 - 3.0 Includes: PROPHYLAXIS forvenous thrombosis, systemic embolization; TREATMENT for venous thrombosis and/or pulmonary embolus.HIGH RISK: Target INR is 2.5-3.5 for patients with mechanical heart valves.PLATELET [id number] 15:21:00 Test Item Value Reference Range Interpretation Comments PLATELET COUNT (BEAKER) (test 224 K/CU MM 150-450 code = 756) Stock Driver ID - [id number] AND [id number] 14:15:00 Test Item Value Reference Range Interpretation Comments HEMOGLOBIN (BEAKER) (test code = 7.2 GM/DL 13.7-17.5 L 410) HEMATOCRIT (BEAKER) (test code = 22.4 % 40.1-51.0 L 411) Stock Driver ID - [id number] 13:21:00 Test Item Value Reference Range Interpretation Comments POTASSIUM (BEAKER) 4.0 meq/L 3.5-5.1 Specimen slightly (test code = 379) hemolyzed POCT-GLUCOSE [id number] 12:43:00 Test Item Value Reference Range Interpretation Comments POC-GLUCOSE METER 84 mg/dL 70-110 : TESTED A T [facility] 6720 (BEAKER) (test code = [place], 1538) [id number]: Stock Driver/Techni won ID = [id number] for RONAL BROCK RAD, ABDOMEN/KUB, 1 VIEW [id number] 12:27:00Reason for exam:->DHT placementShould this be performed at the bedside?->Yes [facility] 1975 Sex: MFINAL REPORT RAD, ABDOMEN/KUB, 1 VIEW AP CLINICAL INDICATION: DHT pl acement COMPARISON: None TECHNIQUE: Two frontal of the abdomen. IMPRESSION: The bowel gas patternis nonspecific, but nonobstructive. A feeding tube is not visible in the provided images and may be coiled in the hypopharynx. The regional skeleton is intact. Signed: JR Tate Robert MDReportVerified Date/Time: 01/17/2021 12:27:08 Reading Location: [facility] Reading Room [id number] 11:30:00 Test Item Value Reference Range Interpretation Comments MAGNESIUM (BEAKER) 2.0 mg/dL 1.6-2.6 Specimen slightly (test code = 627) hemolyzed [id number] 11:25:00 Test Item Value Reference Range Interpretation Comments POTASSIUM (BEAKER) 4.1 meq/L 3.5-5.1 Specimen slightly (test code = 379) hemolyzed [id number] 11:25:00 Test Item Value Reference Range Interpretation Comments PHOSPHORUS (BEAKER) 6.1 mg/dL 2.3-4.7 H Specimen slightly (test code = 604) hemolyzed LACTIC ACID, [id number] 09:47:00 Test Item Value Reference Range Interpretation Comments LACTATE BLOOD ARTERIAL (2) 1.6 mmol/L 0.5-2.2 (BEAKER) (test code = 2874) RAD, CHEST, 1 VIEW, NON [id number] 09:17:00Reason for exam:->chest tubes, s/p cardiac surgeryShould this be performed at the bedside?->Yes [facility] : 1975 Sex: MFINAL REPORT RAD, CHEST, 1 VIEW, NON DEPT INDICATION: chest tubes, s/p cardiac surgery COMPARISON: Prior day's exam FINDINGS: Portable frontal view of the chest. IMPRESSION: Support Lines: Stable. Lungs and pleura: Unchanged airspace and pleural opacities. No pneumothorax.Heart and mediastinum: Stable contours. Stable surgical changes.Additional findings: None. Signed: JR Tate Robert MDReport Verified Date/Time: 01/17/2021 09:17:24 Reading Location: [facility] Reading Room HEPATIC FUNCTION PANEL 2021-01-17 09:03:00 Test Item Value Reference Range Interpretation Comments TOTAL PROTEIN (BEAKER) 4.5 gm/dL 6.0-8.3 L Speci men slightly (test code = 770) hemolyzed ALBUMIN (BEAKER) (test 2.4 g/dL 3.5-5.0 L Speci men slightly code = 1145) hemolyzed BILIRUBIN TOTAL 0.7 mg/dL 0.2-1.2 Specimen sli ghtly (BEAKER) (test code = hemoly zed 377) BILIRUBIN DIRECT 0.5 mg/dL 0.1-0.5 Specimen sl ightly (BEAKER) (test code = hemoly zed 706) ALKALINE PHOSPHATASE 90 U/L 40-150 (BEAKER) (test code = 346) AST (SGOT) (BEAKER) > U/L 5-34 H Specimen slightly (test code = 353) hemolyzed ALT (SGPT) (BEAKER) 1109 U/L 6-55 H Specimen slightly (test code = 347) hemolyzed COMPREHENSIVE METABOLIC [id number] 08:52:00 Test Item Value Reference Range Interpretation Comments TOTAL PROTEIN 4.5 gm/dL 6.0-8.3 L Specimen sligh tly (BEAKER) (test code = hemoly zed 770) ALBUMIN (BEAKER) 2.4 g/dL 3.5-5.0 L Specimen sl ightly (test code = 1145) hemolyzed ALKALINE PHOSPHATASE 90 U/L 40-150 (BEAKER) (test code = 346) BILIRUBIN TOTAL 0.7 mg/dL 0.2-1.2 Specimen sli ghtly (BEAKER) (test code = hemoly zed 377) SODIUM (BEAKER) (test 139 meq/L 136-145 code = 381) POTASSIUM (BEAKER) 4.2 meq/L 3.5-5.1 Specimen slightly (test code = 379) hemolyzed CHLORIDE (BEAKER) 102 meq/L 98-107 (test code = 382) CO2 (BEAKER) (test 27 meq/L 22-29 code = 355) BLOOD UREA NITROGEN 43 mg/dL 7-21 H (BEAKER) (test code = 354) CREATININE (BEAKER) 4.55 mg/dL 0.57-1.25 H Specimen slightly (test code = 358) hemolyzed GLUCOSE RANDOM 77 mg/dL 70-105 (BEAKER) (test code = 652) CALCIUM (BEAKER) 9.2 mg/dL 8.4-10.2 (test code = 697) AST (SGOT) (BEAKER) > U/L 5-34 H Specimen slightly (test code = 353) hemolyzed ALT (SGPT) (BEAKER) 1109 U/L 6-55 H Specimen slightly (test code = 347) hemolyzed EGFR (BEAKER) (test 17 mL/min/1.73 ESTIMA ARI GFR IS code = 1092) sq m NOT ACCURATE CREATININE CLEARANCE IN PREDICTING GLOMERULAR FILTRATION RATE . ESTIMATED GFR I S NOT APPLICABLE FOR DIALYSIS PATIEN TS. [id number] 08:45:00 Test Item Value Reference Range Interpretation Comments MAGNESIUM (BEAKER) 2.1 mg/dL 1.6-2.6 Specimen slightly (test code = 627) hemolyzed HEMOGLOBIN AND [id number] 08:12:00 Test Item Value Reference Range Interpretation Comments HEMOGLOBIN (BEAKER) (test code = 7.6 GM/DL 13.7-17.5 L 410) HEMATOCRIT (BEAKER) (test code = 23.3 % 40.1-51.0 L 411) Stock Driver ID - [id number], [id number] 08:04:00 Test Item Value Reference Range Interpretation Comments PH ARTERIAL (BEAKER) (test code = 383) 7.49 7.35-7.45 H CBC W/PLT COUNT & AUTO [id number] 06:06:00 Test Item Value Reference Range Interpretation Comments WHITE BLOOD CELL COUNT 36.8 K/ L 3.5-10.5 H (BEAKER) (test code = 775) RED BLOOD CELL COUNT 2.64 M/ L 4.63-6.08 L (BEAKER) (test code = 761) HEMOGLOBIN (BEAKER) 7.6 GM/DL 13.7-17.5 L (test code = 410) HEMATOCRIT (BEAKER) 23.1 % 40.1-51.0 L (test code = 411) MEAN CORPUSCULAR 87.5 fL 79.0-92.2 Discordant MCV VOLUME (BEAKER) (test result s compared to code = 753) previous result s; clinical correl ation required. MEAN CORPUSCULAR 28.8 pg 25.7-32.2 HEMOGLOBIN (BEAKER) (test code = 751) MEAN CORPUSCULAR 32.9 GM/DL 32.3-36.5 HEMOGLOBIN CONC (BEAKER) (test code = 752) RED CELL DISTRIBUTION 16.0 % 11.6-14.4 H WIDTH (BEAKER) (test code = 412) PLATELET COUNT 181 K/CU MM 150-450 (BEAKER) (test code = 756) MEAN PLATELET VOLUME 11.5 fL 9.4-12.4 (BEAKER) (test code = 754) NUCLEATED RED BLOOD 0 /100 WBC 0-0 CELLS (BEAKER) (test code = 413) (CELLAVISION MANUAL DIFF)2021-01-17 06:06:00 Test Item Value Reference Range Interpretation Comments NEUTROPHILS - REL 96 % (CELLAVISION)(BEAKER) (test code = 2816) MONOCYTES - REL 3 % (CELLAVISION)(BEAKER) (test code = 2818) MYELOCYTES - REL 1 % 0-0 H (CELLAVISION)(BEAKER) (test code = 2822) NEUTROPHILS - ABS 35.33 K/ul 1.78-5.38 H (CELLAVISION)(BEAKER) (test code = 2830) MONOCYTES - ABS 1.10 K/uL 0.30-0.82 H (CELLAVISION)(BEAKER) (test code = 2832) MYELOCYTES-ABS 0.37 K/uL 0.00-0.00 H (CELLAVISION)(BEAKER) (test code = 2837) TOTAL COUNTED (BEAKER) (test code 100 = 1351) WBC MORPHOLOGY (BEAKER) (test Normal code = 487) LARGE PLT(BEAKER) (test code = Present 2156) POLYCHROMATOPHILLIC RBCS(BEAKER) 1+ few (test code = 478) ANISOCYTOSIS (BEAKER) (test code 1+ few = 961) MACROCYTES (BEAKER) (test code = 1+ few 964) POIKILOCYTES (BEAKER) (test code 2+ moderate = 966) SCHISTOCYTES (BEAKER) (test code 1+ few = 765) SPHEROCYTES (BEAKER) (test code = 1+ few 768) OVALOCYTES (BEAKER) (test code = 1+ few 477) CHIKIS CELLS (BEAKER) (test code = 2+ moderate 474) ARTIFACT (CELLAVISION)(BEAKER) Present (test code = 3432) PLATELET CONCENTRATION Adequate (CELLAVISION)(BEAKER) (test code = 3438) Stock Driver ID - Imelda comments: Slide comments:[id number] 05:18:00 Test Item Value Reference Range Interpretation Comments PARTIAL THROMBOPLASTIN TIME 44.6 seconds 22.5-36.0 H (BEAKER) (test code = 760) PROTHROMBIN [id number] 05:17:00 Test Item Value Reference Range Interpretation Comments PROTIME (BEAKER) 30.0 seconds 11.9-14.2 H (test code = 759) INR (BEAKER) (test 2.89 See_Comment [Automat ed message] code = 370) The system Um[employer] generated this result transmitted ref erence range: <=5.90. The reference range was not used to int erpret this result as normal/abnormal . RECOMMENDED COUMADIN/WARFARIN INR THERAPY RANGESSTANDARD DOSE: 2.0 - 3.0 Includes: PROPHYLAXIS forvenous thrombosis, systemic embolization; TREATMENT for venous thrombosis and/or pulmonary embolus.HIGH RISK: Target INR is 2.5-3.5 for patients with mechanical heart valves.BLOOD GAS, [id number] 04:54:00 Test Item Value Reference Range Interpretation Comments PH ARTERIAL (BEAKER) (test code = 7.48 7.35-7.45 H 383) PCO2 ARTERIAL (BEAKER) (test code 38 mm Hg 35-45 = 384) PO2 ARTERIAL (BEAKER) (test code = 264 mm Hg 80-90 H 385) O2 SATURATION ARTERIAL (BEAKER) 99.7 % 96.0-97.0 H (test code = 386) HCO3 ARTERIAL (BEAKER) (test code 28 mmol/L 21-29 = 388) BASE EXCESS ARTERIAL (BEAKER) 3.8 mmol/L -2.0-3.0 H (test code = 387) PATIENT TEMPERATURE (BEAKER) (test 36.5 code = 1818) FIO2 (BEAKER) (test code = 1819) 80.0 POCT-GLUCOSE [id number] 03:44:00 Test Item Value Reference Range Interpretation Comments POC-GLUCOSE METER 81 mg/dL 70-110 : TESTED A T [facility] 6720 (BEAKER) (test code = [place], 1538) [address]: Stock Driver/Techni won ID = [id number] for MESERET ETT, SEPTEMBER [id number] 02:05:00 Test Item Value Reference Range Interpretation Comments PHOSPHORUS (BEAKER) 10.0 mg/dL 2.3-4.7 HH Specimen slightly (test code = 604) hemolyzed [id number] 01:53:00 Test Item Value Reference Range Interpretation Comments MAGNESIUM (BEAKER) 2.4 mg/dL 1.6-2.6 Specimen slightly (test code = 627) hemolyzed [id number] 01:53:00 Test Item Value Reference Range Interpretation Comments POTASSIUM (BEAKER) 4.3 meq/L 3.5-5.1 Specimen slightly (test code = 379) hemolyzed [id number] 01:40:00 Test Item Value Reference Range Interpretation Comments POTASSIUM (BEAKER) 4.3 meq/L 3.5-5.1 Specimen slightly (test code = 379) hemolyzed LACTIC ACID, [id number] 01:14:00 Test Item Value Reference Range Interpretation Comments LACTATE BLOOD 6.4 mmol/L 0.5-2.2 HH Specimen sligh tly ARTERIAL (2) (BEAKER) hemoly zed (test code = 2874) Stock Driver ID - DBLACTIC ACID, [id number] 00:55:00 Test Item Value Reference Range Interpretation Comments LACTATE BLOOD 2.6 mmol/L 0.5-2.2 H Specimen sligh tly ARTERIAL (2) (BEAKER) hemoly zed (test code = 2874) [id number] 23:45:00 Test Item Value Reference Range Interpretation Comments FIBRINOGEN LEVEL (BEAKER) (test 261 mg/dl 225-434 code = 658) [id number] 23:45:00 Test Item Value Reference Range Interpretation Comments PARTIAL THROMBOPLASTIN TIME 49.5 seconds 22.5-36.0 H (BEAKER) (test code = 760) PROTHROMBIN [id number] 23:44:00 Test Item Value Reference Range Interpretation Comments PROTIME (BEAKER) 31.2 seconds 11.9-14.2 H (test code = 759) INR (BEAKER) (test 3.04 See_Comment [Automat ed message] code = 370) The system [employer] h generated this result transmitted ref erence range: <=5.90. The reference range was not used to int erpret this result as normal/abnormal . RECOMMENDED COUMADIN/WARFARIN INR THERAPY RANGESSTANDARD DOSE: 2.0 - 3.0 Includes: PROPHYLAXIS forvenous thrombosis, systemic embolization; TREATMENT for venous thrombosis and/or pulmonary embolus.HIGH RISK: Target INR is 2.5-3.5 for patients with mechanical heart valves.POCT-GLUCOSE [id number] 22:21:00 Test Item Value Reference Range Interpretation Comments POC-GLUCOSE METER 96 mg/dL 70-110 : TESTED A T [facility] 6720 (BEAKER) (test code = [place], 1538) [address]: Stock Driver/Techni won ID = [id number] for MESERET ETT, SEPTEMBER [id number] 21:19:00 Test Item Value Reference Range Interpretation Comments PROTIME (BEAKER) (test 30.9 seconds 11.9-14.2 H code = 759) INR (BEAKER) (test 3.00 See_Comment [Automat ed code = 370) message] The sy stem which generated this result transmitted reference range : <=5.90. The reference range was not used to interpret this result as normal/abnormal . PARTIAL THROMBOPLASTIN 49.6 seconds 22.5-36.0 H TIME (BEAKER) (test code = 760) RECOMMENDED COUMADIN/WARFARIN INR THERAPY RANGESSTANDARD DOSE: 2.0 - 3.0 Includes: PROPHYLAXIS forvenous thrombosis, systemic embolization; TREATMENT for venous thrombosis and/or pulmonary embolus.HIGH RISK: Target INR is 2.5-3.5 for patients with mechanical heart valves.HEMOGLOBIN AND [id number] 20:53:00 Test Item Value Reference Range Interpretation Comments HEMOGLOBIN (BEAKER) (test code = 7.1 GM/DL 13.7-17.5 L 410) HEMATOCRIT (BEAKER) (test code = 22.1 % 40.1-51.0 L 411) Stock Driver ID - [id number], [id number] 20:47:00 Test Item Value Reference Range Interpretation Comments PH ARTERIAL (BEAKER) (test code = 383) 7.45 7.35-7.45 BLOOD GAS, [id number] 17:08:00 Test Item Value Reference Range Interpretation Comments PH ARTERIAL (BEAKER) (test code = 7.44 7.35-7.45 383) PCO2 ARTERIAL (BEAKER) (test code 37 mm Hg 35-45 = 384) PO2 ARTERIAL (BEAKER) (test code = 228 mm Hg 80-90 H 385) O2 SATURATION ARTERIAL (BEAKER) 99.5 % 96.0-97.0 H (test code = 386) HCO3 ARTERIAL (BEAKER) (test code 25 mmol/L 21-29 = 388) BASE EXCESS ARTERIAL (BEAKER) 0.5 mmol/L -2.0-3.0 (test code = 387) PATIENT TEMPERATURE (BEAKER) (test 37.0 code = 1818) FIO2 (BEAKER) (test code = 1819) 100.0 2D Echo W/Doppler(CW/PW/Color)2021-01-16 16:58:48Ejection FractionSLEH ECHO HEARTLAB MKCKESSON CPACSInterface, External Ris In - 01/16/2021 4:59 PM C DTTransthoracic Echocardiography Report (TTE) Demographics Patient Name CROW KAUR Date of Study 01/16/2021 SR. Gender Male Visit Number [id number] Race Unknown Room Number C823 Number Date of 1975 Referring Physician Zakia Sarah Age 45 year(s) Loom Tuner Estela Mann [facility] Disabilities Caregiver Olvin Butler Interpreting Stan Murrell Physician Procedure Type of Study TTE procedure:2DECHO W DOPPLER(CW/PW/COLOR) (STAT) Indications:Sustained or non sustained Afib, SVT or VT.Clinical HistoryESRD, HTN, MVR 01/11/21, S/P CARDIAC ARRESTHGB 7.9HCT 26.1 %Height: 74 inches Weight: 83.01 kg (183 lbs) BSA: 2.09 m^2 BMI: 23.5 kg/m^2HR: 72 bpm BP: 106/68 mmHg Summary The left ventricle ischamber size (by vol index) is normal (male - LVED vol - 34-74ml/m2). Severe concentric LV hypertrophy. All of the LV segments contract normally . Estimated LVEF by qualitative assessment is increased ( >60%) . Degree of diastolic dysfunction (LAP assessment) is inconclusive due to prosthetic MV .A mechanical MV prosthesis is visualized with normal function by Doppler . Estimated peak systolic PA pressure is 45-50 mmHg (mild pulmonary hypertension) . Previous Study In comparison with the prior exam 01/10/2021 the following changes are noted: S/P MVR . Signature Findings Left Ventricle The left ventricle is chamber size (by vol index) is normal (male - LVED vol - 34-74ml/m2). Severe concentric LV hypertrophy. Allof the LV segments contract normally . Global LV systolic function hyperdynamic . Estimated LVEF by qualitative assessment is increased (>60%) . Degree of diastolic dysfunction (LAP assessment) is inconclusive due to prosthetic MV . Left Atrium LA size is severely enlarged(>48 ml/m2) . Right Ventricle Normal right ventricle structure and function. Right Atrium Right atrium dilated. Aortic Valve Normal AoV structure. 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 Tricuspid Valve Mild tricuspid regurgitation. Estimated peak systolic PA pressure is 45- 50 mmHg (mild pulmonary hypertension) .Pulmonic Valve Normal PV structure and function by limited views and Doppler. Aorta Aortic root size (SInus of Valsalva diameter) is normal . Pericardium No evidence of pericardial effusion. IVC/SVC/PA/PV/Pleural Theestimated RA pressure by IVC dynamics 16-20mmHg . A left and right pleural effusion is noted. Chambers/Structures Left Atrium LA Volume: 121.99 ml LA Area: 33.63 cm^2 LA Vol. Index: 58 ml/m^2 Left Ventricle LVIDd: 4.65 cm LVEDV:99.85 ml LV Septum Diastolic: 1.9 cm LV PW Diastolic: 1.95 cm LVEDV Suresh's:100.61 ml LVESV Suresh's:29.6 ml LVEF Suresh's: 70.6 % LVEDVI: 48 ml/m^2 LVESVI: 14 ml/m^2 LVOT Diameter: 1.95 cm Right Ventricle RVOT VTI: 18.03 cm Aorta Ascending Aorta: 2.91 cm Doppler/Quantitative Measurements Mitral Valve MV Peak E-Wave: 1.4 m/s MV Peak A-Wave: 0.52 m/s E/A Ratio: 2.69 Mean Velocity: 0.89 m/s Peak Gradient: 7.81 mmHg Mean Gradient: 4.02 mmHg Deceleration Time: 208.8 msec Area (continuity): 2.17 cm^2 MV VTI: 37.36 cm MV Anshul. Peak: 1.52 m/s Aortic Valve Peak Velocity: 2.27 m/s Mean Velocity: 1.36 m/s Peak Gradient: 20.54 mmHg Mean Gradient: 8.88 mmHg AV Area (continuity): 2.25 cm^2 AV VTI: 36.13 cm AV DVI: 0.75 LVOT Peak Velocity: 1.43 m/s Peak Gradient: 8.17 mmHg Mean Velocity: 1.16 m/s Mean Gradient: 5.77 mmHg LVOT Diameter: 1.95 cm LVOT VTI: 27.22 cm LVOT Area: 2.99 cm^2 LVOT SV:81.25 ml LVOT CO: 5.85 l/min LVOT CI: 2.8 l/min/m^2 Tricuspid Valve TR Velocity: 2.61 m/s TR Gradient: 27.15 mmHgSub[facility] Center2D Echo W/Doppler(CW/PW/Color)2021-01-16 16:58:48Ejection FractionSLEH ECHO HEARTLAB MKCKESSON CPACSInterface, External Ris In - 01/16/2021 4:59 PM CDTTransthoracic Echocardiography Report (TTE) Demographics Patient Name CROW KAUR Date of Study 01/16/2021 SR. Gender Male Visit Number [id number] Race Unknown Room Number C823 Number Date of 1975 Referring Physician Zakia Sarah Age 45 year(s) Loom Tuner Estela Mann [facility] Disabilities Caregiver Olvin Butler Interpreting Physician YUNIER Carter Procedure Type of Study TTE procedure:2DECHO W DOPPLER(CW/PW/COLOR) (STAT) Indications:Sustained or non sustained Afib, SVT or VT.Clinical HistoryESRD, HTN, MVR 01/11/21, S/P CARDIAC ARRESTHGB 7.9HCT 26.1 %Height: 74 inches Weight: 83.01 kg (183 lbs) BSA: 2.09 m^2 BMI: 23.5 kg/m^2HR: 72 bpm BP: 106/68 mmHg Summary The left ventricle ischamber size (by vol index) is normal (male - LVED vol - 34-74ml/m2). Severe concentric LV hypertrophy. All of the LV segments contract normally . Estimated LVEF by qualitative assessment is increased ( >60%) . Degree of diastolic dysfunction (LAP assessment) is inconclusive due to prosthetic MV .A mechanical MV prosthesis is visualized with normal function by Doppler . Estimated peak systolic PA pressure is 45-50 mmHg (mild pulmonary hypertension) . Previous Study In comparison with the prior exam 01/10/2021 the following changes are noted: S/P MVR . Signature Findings Left Ventricle The left ventricle is chamber size (by vol index) is normal (male - LVED vol - 34-74ml/m2). Severe concentric LV hypertrophy. Allof the LV segments contract normally . Global LV systolic function hyperdynamic . Estimated LVEF by qualitative assessment is increased (>60%) . Degree of diastolic dysfunction (LAP assessment) is inconclusive due to prosthetic MV . Left Atrium LA size is severely enlarged(>48 ml/m2) . Right Ventricle Normal right ventricle structure and function. Right Atrium Right atrium dilated. Aortic Valve Normal AoV structure. 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 Tricuspid Valve Mild tricuspid regurgitation. Estimated peak systolic PA pressure is 45- 50 mmHg (mild pulmonary hypertension) .Pulmonic Valve Normal PV structure and function by limited views and Doppler. Aorta Aortic root size (SInus of Valsalva diameter) is normal . Pericardium No evidence of pericardial effusion. IVC/SVC/PA/PV/Pleural Theestimated RA pressure by IVC dynamics 16-20mmHg . A left and right pleural effusion is noted. Chambers/Structures Left Atrium LA Volume: 121.99 ml LA Area: 33.63 cm^2 LA Vol. Index: 58 ml/m^2 Left Ventricle LVIDd: 4.65 cm LVEDV:99.85 ml LV Septum Diastolic: 1.9 cm LV PW Diastolic: 1.95 cm LVEDV Suresh's:100.61 ml LVESV Suresh's:29.6 ml LVEF Suresh's: 70.6 % LVEDVI: 48 ml/m^2 LVESVI: 14 ml/m^2 LVOT Diameter: 1.95 cm Right Ventricle RVOT VTI: 18.03 cm Aorta Ascending Aorta: 2.91 cm Doppler/Quantitative Measurements Mitral Valve MV Peak E-Wave: 1.4 m/s MV Peak A-Wave: 0.52 m/s E/A Ratio: 2.69 Mean Velocity: 0.89 m/s Peak Gradient: 7.81 mmHg Mean Gradient: 4.02 mmHg Deceleration Time: 208.8 msec Area (continuity): 2.17 cm^2 MV VTI: 37.36 cm MV Anshul. Peak: 1.52 m/s Aortic Valve Peak Velocity: 2.27 m/s Mean Velocity: 1.36 m/s Peak Gradient: 20.54 mmHg Mean Gradient: 8.88 mmHg AV Area (continuity): 2.25 cm^2 AV VTI: 36.13 cm AV DVI: 0.75 LVOT Peak Velocity: 1.43 m/s Peak Gradient: 8.17 mmHg Mean Velocity: 1.16 m/s Mean Gradient: 5.77 mmHg LVOT Diameter: 1.95 cm LVOT VTI: 27.22 cm LVOT Area: 2.99 cm^2 LVOT SV:81.25 ml LVOT CO: 5.85 l/min LVOT CI: 2.8 l/min/m^2 Tricuspid Valve TR Velocity: 2.61 m/s TR Gradient: 27.15 mmHgSuburban Medical Center2D Echo W/Doppler(CW/PW/Color)2021-01-16 16:58:48Ejection FractionSLEH ECHO HEARTLAB MKCKESSON CPACSInterface, External Ris In - 01/16/2021 4:59 PM CDTTransthoracic Echocardiography Report (TTE) Demographics Patient Name CROW KAUR Date of Study 01/16/2021 SR. Gender Male Visit Number [id number] Race Unknown Room Number C823 Number Date of 1975 Referring Physician Zakia Sarah Age 45 year(s) Loom Tuner Estela Mann [facility] Disabilities Caregiver Olvin Butler Interpreting Stan Murrell, Physician Procedure Type of Study TTE procedure:2DECHO W DOPPLER(CW/PW/COLOR) (STAT) Indications:Sustained or non sustained Afib, SVT or VT.Clinical HistoryESRD, HTN, MVR 01/11/21, S/P CARDIAC ARRESTHGB 7.9HCT 26.1 %Height: 74 inches Weight: 83.01 kg (183 lbs) BSA: 2.09 m^2 BMI: 23.5 kg/m^2HR: 72 bpm BP: 106/68 mmHg Summary The left ventricle ischamber size (by vol index) is normal (male - LVED vol - 34-74ml/m2). Severe concentric LV hypertrophy. All of the LV segments contract normally . Estimated LVEF by qualitative assessment is increased ( >60%) . Degree of diastolic dysfunction (LAP assessment) is inconclusive due to prosthetic MV .A mechanical MV prosthesis is visualized with normal function by Doppler . Estimated peak systolic PA pressure is 45-50 mmHg (mild pulmonary hypertension) . Previous Study In comparison with the prior exam 01/10/2021 the following changes are noted: S/P MVR . Signature Findings Left Ventricle The left ventricle is chamber size (by vol index) is normal (male - LVED vol - 34-74ml/m2). Severe concentric LV hypertrophy. Allof the LV segments contract normally . Global LV systolic function hyperdynamic . Estimated LVEF by qualitative assessment is increased (>60%) . Degree of diastolic dysfunction (LAP assessment) is inconclusive due to prosthetic MV . Left Atrium LA size is severely enlarged(>48 ml/m2) . Right Ventricle Normal right ventricle structure and function. Right Atrium Right atrium dilated. Aortic Valve Normal AoV structure. 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 Tricuspid Valve Mild tricuspid regurgitation. Estimated peak systolic PA pressure is 45- 50 mmHg (mild pulmonary hypertension) .Pulmonic Valve Normal PV structure and function by limited views and Doppler. Aorta Aortic root size (SInus of Valsalva diameter) is normal . Pericardium No evidence of pericardial effusion. IVC/SVC/PA/PV/Pleural Theestimated RA pressure by IVC dynamics 16-20mmHg . A left and right pleural effusion is noted. Chambers/Structures Left Atrium LA Volume: 121.99 ml LA Area: 33.63 cm^2 LA Vol. Index: 58 ml/m^2 Left Ventricle LVIDd: 4.65 cm LVEDV:99.85 ml LV Septum Diastolic: 1.9 cm LV PW Diastolic: 1.95 cm LVEDV Suresh's:100.61 ml LVESV Suresh's:29.6 ml LVEF Suresh's: 70.6 % LVEDVI: 48 ml/m^2 LVESVI: 14 ml/m^2 LVOT Diameter: 1.95 cm Right Ventricle RVOT VTI: 18.03 cm Aorta Ascending Aorta: 2.91 cm Doppler/Quantitative Measurements Mitral Valve MV Peak E-Wave: 1.4 m/s MV Peak A-Wave: 0.52 m/s E/A Ratio: 2.69 Mean Velocity: 0.89 m/s Peak Gradient: 7.81 mmHg Mean Gradient: 4.02 mmHg Deceleration Time: 208.8 msec Area (continuity): 2.17 cm^2 MV VTI: 37.36 cm MV Anshul. Peak: 1.52 m/s Aortic Valve Peak Velocity: 2.27 m/s Mean Velocity: 1.36 m/s Peak Gradient: 20.54 mmHg Mean Gradient: 8.88 mmHg AV Area (continuity): 2.25 cm^2 AV VTI: 36.13 cm AV DVI: 0.75 LVOT Peak Velocity: 1.43 m/s Peak Gradient: 8.17 mmHg Mean Velocity: 1.16 m/s Mean Gradient: 5.77 mmHg LVOT Diameter: 1.95 cm LVOT VTI: 27.22 cm LVOT Area: 2.99 cm^2 LVOT SV:81.25 ml LVOT CO: 5.85 l/min LVOT CI: 2.8 l/min/m^2 Tricuspid Valve TR Velocity: 2.61 m/s TR Gradient: 27.15 mmHgSuburban Medical CenterRAD, CHEST, 1 VIEW, NON [id number] 16:44:00Reason for exam:->s/p left pleural CTShould this be performed at the bedside?->Yes [facility] 1975 Sex: MFINAL REPORT RAD, CHEST, 1 VIEW, NON DEPT TECHNIQUE: Frontal view(s)of the chest. INDICATION: s/p left pleural CT. COMPARISON: Chest radiograph same day at 1543 hours FINDINGS/IMPRESSION: Lines/Tubes: New left-sided chest tube. Otherwise unchanged, including left transjugular catheter with tip likely in the azygos vein. Lungs/pleura: Improved aeration of the left upper lung. Persistent hazy opacification throughout the aerated portions of the bilateral lungs and a dense retrocardiac opacity with air bronchograms. Improved left pleural effusion. No pneumothorax. Heart and Mediastinum: Unchanged. Soft Tissues and Bones: Unchanged. Signed: Delano Castro VerifiedDate/Time: 01/16/2021 16:44:51 Reading Location: [address] Transitional Reading Room [facility] signed by: DELANO CASTRO MD on 01/16/2021 04:44 PMRAD, CHEST, 1 VIEW, NON [id number] 16:24:00Reason for exam:->confirm ET placement, and post ROSC evaluationShould this be performed at the bedside?->Yes [facility] : 1975 Sex: MFINAL REPORT RAD, CHEST, 1 VIEW, NON DEPT TECHNIQUE: Frontal view(s)of the chest. INDICATION: confirm ET placement, and post ROSC evaluation. COMPARISON: Chest radiograph same day at 0018 hours FINDINGS/IMPRESSION: Lines/Tubes: Endotracheal tube tip 4.5 cm above the nitin. Otherwise no change Lungs/pleura: Increasing left lung opacification. Increasing left pleural ef fusion. No pneumothorax. Heart and Mediastinum: Unchanged. Soft Tissues and Bones: Unchanged. Signed: Delano Castro Verified Date/Time: 01/16/2021 16:24:00 Reading Location: [facility] C013T Transitional Reading Room BLOOD GAS, [id number] 15:46:00 Test Item Value Reference Range Interpretation Comments PH ARTERIAL (BEAKER) (test code = 7.35 7.35-7.45 383) PCO2 ARTERIAL (BEAKER) (test code 43 mm Hg 35-45 = 384) PO2 ARTERIAL (BEAKER) (test code 128 mm Hg 80-90 H = 385) O2 SATURATION ARTERIAL (BEAKER) 98.4 % 96.0-97.0 H (test code = 386) HCO3 ARTERIAL (BEAKER) (test code 23 mmol/L 21-29 = 388) BASE EXCESS ARTERIAL (BEAKER) -2.6 mmol/L -2.0-3.0 L (test code = 387) PATIENT TEMPERATURE (BEAKER) 37.0 (test code = 1818) FIO2 (BEAKER) (test code = 1819) 100.0 (CELLAVISION MANUAL DIFF)2021-01-16 15:46:00 Test Item Value Reference Range Interpretation Comments NEUTROPHILS - REL 88 % (CELLAVISION)(BEAKER) (test code = 2816) LYMPHOCYTES - REL 2 % (CELLAVISION)(BEAKER) (test code = 2817) MONOCYTES - REL 1 % (CELLAVISION)(BEAKER) (test code = 2818) METAMYELOCYTES - REL 4 % 0-0 H (CELLAVISION)(BEAKER) (test code = 2821) MYELOCYTES - REL 3 % 0-0 H (CELLAVISION)(BEAKER) (test code = 2822) BANDS - REL (CELLAVISION)(BEAKER) 2 % 0-10 (test code = 2826) NEUTROPHILS - ABS 31.15 K/ul 1.78-5.38 H (CELLAVISION)(BEAKER) (test code = 2830) LYMPHOCYTES - ABS 0.71 K/ul 1.32-3.57 L (CELLAVISION)(BEAKER) (test code = 2831) MONOCYTES - ABS 0.35 K/uL 0.30-0.82 (CELLAVISION)(BEAKER) (test code = 2832) METAMYELOCYTES - ABS 1.42 K/uL 0.00-0.00 H (CELLAVISION)(BEAKER) (test code = 2836) MYELOCYTES-ABS 1.06 K/uL 0.00-0.00 H (CELLAVISION)(BEAKER) (test code = 2837) BANDS - ABS (CELLAVISION)(BEAKER) 0.71 K/uL 0.00-0.80 (test code = 2840) TOTAL COUNTED (BEAKER) (test code 100 = 1351) WBC MORPHOLOGY (BEAKER) (test Normal code = 487) PLT MORPHOLOGY (BEAKER) (test Normal code = 486) ANISOCYTOSIS (BEAKER) (test code 1+ few = 961) MACROCYTES (BEAKER) (test code = 1+ few 964) POIKILOCYTES (BEAKER) (test code 2+ moderate = 966) SPHEROCYTES (BEAKER) (test code = 1+ few 768) ELLIPTOCYTES (BEAKER) (test code 1+ few = 962) CHIKIS CELLS (BEAKER) (test code = 1+ few 474) ARTIFACT (CELLAVISION)(BEAKER) Present (test code = 3432) PLATELET CONCENTRATION Adequate (CELLAVISION)(BEAKER) (test code = 3438) Stock Driver ID - Maryan Phillips comments: Slide comments:PT/[id number] 15:43:00 Test Item Value Reference Range Interpretation Comments PROTIME (BEAKER) (test 30.0 seconds 11.9-14.2 H code = 759) INR (BEAKER) (test 2.89 See_Comment [Automat ed code = 370) message] The sy stem which generated this result transmitted reference range : <=5.90. The reference range was not used to interpret this result as normal/abnormal . PARTIAL THROMBOPLASTIN 64.2 seconds 22.5-36.0 H TIME (BEAKER) (test code = 760) RECOMMENDED COUMADIN/WARFARIN INR THERAPY RANGESSTANDARD DOSE: 2.0 - 3.0 Includes: PROPHYLAXIS forvenous thrombosis, systemic embolization; TREATMENT for venous thrombosis and/or pulmonary embolus.HIGH RISK: Target INR is 2.5-3.5 for patients with mechanical heart valves.[id number] 15:39:00 Test Item Value Reference Range Interpretation Comments PHOSPHORUS (BEAKER) (test code = 12.0 mg/dL 2.3-4.7 HH 604) Stock Driver ID - [id number] 15:38:00 Test Item Value Reference Range Interpretation Comments MAGNESIUM (BEAKER) (test code = 3.0 mg/dL 1.6-2.6 H 627) Stock Driver ID - DBCOMPREHENSIVE METABOLIC [id number] 15:38:00 Test Item Value Reference Range Interpretation Comments TOTAL PROTEIN 4.3 gm/dL 6.0-8.3 L (BEAKER) (test code = 770) ALBUMIN (BEAKER) 1.9 g/dL 3.5-5.0 L (test code = 1145) ALKALINE PHOSPHATASE 73 U/L 40-150 (BEAKER) (test code = 346) BILIRUBIN TOTAL 0.7 mg/dL 0.2-1.2 (BEAKER) (test code = 377) SODIUM (BEAKER) (test 138 meq/L 136-145 code = 381) POTASSIUM (BEAKER) 4.5 meq/L 3.5-5.1 (test code = 379) CHLORIDE (BEAKER) 100 meq/L 98-107 (test code = 382) CO2 (BEAKER) (test 18 meq/L 22-29 L code = 355) BLOOD UREA NITROGEN 57 mg/dL 7-21 H (BEAKER) (test code = 354) CREATININE (BEAKER) 7.00 mg/dL 0.57-1.25 H (test code = 358) GLUCOSE RANDOM 168 mg/dL 70-105 H (BEAKER) (test code = 652) CALCIUM (BEAKER) 10.3 mg/dL 8.4-10.2 H (test code = 697) AST (SGOT) (BEAKER) 1547 U/L 5-34 H (test code = 353) ALT (SGPT) (BEAKER) 437 U/L 6-55 H (test code = 347) EGFR (BEAKER) (test 10 mL/min/1.73 ESTIMA ARI GFR IS code = 1092) sq m NOT ACCURATE CREATININE CLEARANCE IN PREDICTING GLOMERULAR FILTRATION RATE . ESTIMATED GFR I S NOT APPLICABLE FOR DIALYSIS PATIEN TS. Stock Driver ID - DBLACTIC ACID, [id number] 15:33:00 Test Item Value Reference Range Interpretation Comments LACTATE BLOOD ARTERIAL (2) 10.2 mmol/L 0.5-2.2 HH (BEAKER) (test code = 2874) Stock Driver ID - DBCBC W/PLT COUNT & AUTO [id number] 15:20:00 Test Item Value Reference Range Interpretation Comments WHITE BLOOD CELL COUNT (BEAKER) 35.4 K/ L 3.5-10.5 H (test code = 775) RED BLOOD CELL COUNT (BEAKER) 2.20 M/ L 4.63-6.08 L (test code = 761) HEMOGLOBIN (BEAKER) (test code = 6.1 GM/DL 13.7-17.5 L 410) HEMATOCRIT (BEAKER) (test code = 20.5 % 40.1-51.0 L 411) MEAN CORPUSCULAR VOLUME (BEAKER) 93.2 fL 79.0-92.2 H (test code = 753) MEAN CORPUSCULAR HEMOGLOBIN 27.7 pg 25.7-32.2 (BEAKER) (test code = 751) MEAN CORPUSCULAR HEMOGLOBIN CONC 29.8 GM/DL 32.3-36.5 L (BEAKER) (test code = 752) RED CELL DISTRIBUTION WIDTH 16.1 % 11.6-14.4 H (BEAKER) (test code = 412) PLATELET COUNT (BEAKER) (test 175 K/CU MM 150-450 code = 756) MEAN PLATELET VOLUME (BEAKER) 10.3 fL 9.4-12.4 (test code = 754) NUCLEATED RED BLOOD CELLS 0 /100 WBC 0-0 (BEAKER) (test code = 413) BLOOD GAS, [id number] 15:19:00 Test Item Value Reference Range Interpretation Comments PH ARTERIAL (BEAKER) (test code = 7.26 7.35-7.45 L 383) PCO2 ARTERIAL (BEAKER) (test code 42 mm Hg 35-45 = 384) PO2 ARTERIAL (BEAKER) (test code 162 mm Hg 80-90 H = 385) O2 SATURATION ARTERIAL (BEAKER) 98.8 % 96.0-97.0 H (test code = 386) HCO3 ARTERIAL (BEAKER) (test code 18 mmol/L 21-29 L = 388) BASE EXCESS ARTERIAL (BEAKER) -8.0 mmol/L -2.0-3.0 L (test code = 387) PATIENT TEMPERATURE (BEAKER) 37.0 (test code = 1818) CALCIUM, [id number] 15:19:00 Test Item Value Reference Range Interpretation Comments CALCIUM IONIZED (BEAKER) (test 1.35 mmol/L 1.12-1.27 H code = 698) PH, BLOOD (BEAKER) (test code = 7.26 1810) POC-Blood gases, [id number] 14:45:00 Test Item Value Reference Range Interpretation Comments Temp. Celsius-POC (test code = 1834) FIO2-POC (test code = 1835) pH, Arterial-POC (test 7.212 7.350-7.450 L code = 1836) PCO2, Arterial-POC 46.4 See_Comment H If pO2 is >180, pCO2 (test code = 1837) may be po sitively biased [Automat ed message] The sy stem which generated this result transmit ari reference range : 35.0 - 45.0 mm Hg. The reference r kevin was not used to interpret this result as normal/abnormal . PO2, Arterial-POC (test 96.0 See_Comment H [Au tomated message] code = 1838) The system [facility] h generated this result transmit ari reference range : 80.0 - 90.0 mm Hg. The reference r kevin was not used to interpret this result as normal/abnormal . SO2, Arterial-POC (test 96.0 % 96-97 code = 1839) HCO3, Arterilal-POC 18.6 meq/L 21-29 L (test code = 1840) BE, Arterial-POC (test -9.0 meq/L -2-3 L : HAL[facility]A [facility] AT [facility] code = 1841) [address] [place], [address]: Stock Driver/Techni won ID = [id number] for DIANNA GANDARAEN Lab Interpretation Abnormal (test code = 58781-2) [facility] Center[id number] 14:45:00 Test Item Value Reference Range Interpretation Comments POC-Potassium (test code 5.7 meq/L 3.6-5.5 H : T ESTED AT [facility] = 1540) [address] [place] [address], 770 30: Stock Driver/Techni won ID = [id number] for IBAY, MIGUEL Lab Interpretation (test Abnormal code = 14333-3) [facility]-[id number] 14:45:00 Test Item Value Reference Range Interpretation Comments POC-Sodium (test code = 134 meq/L 135-148 L : [facility] [facility] 1542) [address] [place] [address], 770 30: Stock Driver/Techni won ID = [id number] for IBAY, MIGUEL Lab Interpretation (test Abnormal code = 62774-9) [facility]-[id number] 14:45:00 Test Item Value Reference Range Interpretation Comments POC-Glucose (test code = 264 mg/dL 70-110 H : T ESTED AT [facility] 1855) [address] [place] [address], 770 30: Stock Driver/Techni won ID = [id number] for IBAY, MIGUEL Lab Interpretation (test Abnormal code = 63821-4) [facility]-[id number] 14:45:00 Test Item Value Reference Range Interpretation Comments POC-Hemoglobin (test code 6.5 g/dL 13-16.8 L : TESTED AT [facility] = 1856) [address] [place] [address], 770 30: Stock Driver/Techni won ID = [id number] for IBAY, MIGUEL Lab Interpretation (test Abnormal code = 44029-0) [facility]-[id number] 14:45:00 Test Item Value Reference Range Interpretation Comments POC-Hematocrit (test code 19 % 40-50 L : = 1857) Stock Driver/Techni won ID = [id number] for IBAY, MIGUEL Lab Interpretation (test Abnormal code = 35835-8) [facility]-Blood gases, [id number] 14:45:00 Test Item Value Reference Range Interpretation Comments Temp. Celsius-POC (test code = 1834) FIO2-POC (test code = 1835) pH, Arterial-POC (test 7.212 7.350-7.450 L code = 1836) PCO2, Arterial-POC 46.4 See_Comment H If pO2 is >180, pCO2 (test code = 1837) may be po sitively biased [Automat ed message] The sy stem which generated this result transmit ari reference range : 35.0 - 45.0 mm Hg. The reference r kevin was not used to interpret this result as normal/abnormal . PO2, Arterial-POC (test 96.0 See_Comment H [Au tomated message] code = 1838) The system whic h generated this result transmit ari reference range : 80.0 - 90.0 mm Hg. The reference r kevin was not used to interpret this result as normal/abnormal . SO2, Arterial-POC (test 96.0 % 96-97 code = 1839) HCO3, Arterilal-POC 18.6 meq/L 21-29 L (test code = 1840) BE, Arterial-POC (test -9.0 meq/L -2-3 L : HALIMA ARI AT [facility] code = 1841) [address] [place] [address], [address]: Stock Driver/Techni won ID = [id number] for IBAY, MIGUEL Lab Interpretation Abnormal (test code = 45034-5) [facility]-[id number] 14:45:00 Test Item Value Reference Range Interpretation Comments POC-Potassium (test code 5.7 meq/L 3.6-5.5 H : T ESTED AT [facility] = 1540) [address] [place] [address], 770 30: Stock Driver/Techni won ID = [id number] for IBAY, MIGUEL Lab Interpretation (test Abnormal code = 01176-4) [facility]-[id number] 14:45:00 Test Item Value Reference Range Interpretation Comments POC-Sodium (test code = 134 meq/L 135-148 L : TE STED AT [facility] 1542) [address] [place] [address], 770 30: Stock Driver/Techni won ID = [id number] for IBAY, MIGUEL Lab Interpretation (test Abnormal code = 78232-1) [facility]-[id number] 14:45:00 Test Item Value Reference Range Interpretation Comments POC-Glucose (test code = 264 mg/dL 70-110 H : T ESTED AT [facility] 1855) [address] [facility], 770 30: Stock Driver/Techni won ID = [id number] for IBAKaris MIGUEL Lab Interpretation (test Abnormal code = 25316-3) [facility]-[id number] 14:45:00 Test Item Value Reference Range Interpretation Comments POC-Hemoglobin (test code 6.5 g/dL 13-16.8 L : TESTED AT [facility] = 1856) [address] [facility], 770 30: Stock Driver/Techni won ID = [id number] for IBAY, MIGUEL Lab Interpretation (test Abnormal code = 86134-8) [facility]-[id number] 14:45:00 Test Item Value Reference Range Interpretation Comments POC-Hematocrit (test code 19 % 40-50 L : = 1857) Stock Driver/Techni won ID = [id number] for IBAY, MIGUEL Lab Interpretation (test Abnormal code = 76210-6) [facility]-Blood gases, [id number] 14:45:00 Test Item Value Reference Range Interpretation Comments Temp. Celsius-POC (test code = 1834) FIO2-POC (test code = 1835) pH, Arterial-POC (test 7.212 7.350-7.450 L code = 1836) PCO2, Arterial-POC 46.4 See_Comment H If pO2 is >180, pCO2 (test code = 1837) may be po sitively biased [Automat ed message] The sy stem which generated this result transmit ari reference range : 35.0 - 45.0 mm Hg. The reference r kevin was not used to interpret this result as normal/abnormal . PO2, Arterial-POC (test 96.0 See_Comment H [Au tomated message] code = 1838) The system whic h generated this result transmit ari reference range : 80.0 - 90.0 mm Hg. The reference r kevin was not used to interpret this result as normal/abnormal . SO2, Arterial-POC (test 96.0 % 96-97 code = 1839) HCO3, Arterilal-POC 18.6 meq/L 21-29 L (test code = 1840) BE, Arterial-POC (test -9.0 meq/L -2-3 L : [facility] code = 1841) 6720 [facility], [address]: Stock Driver/Techni won ID = [id number] for IBAY, MIGUEL Lab Interpretation Abnormal (test code = 10526-8) [facility]-[id number] 14:45:00 Test Item Value Reference Range Interpretation Comments POC-Potassium (test code 5.7 meq/L 3.6-5.5 H : T ESTED AT [facility] = 1540) [address] [place] [address], 770 30: Stock Driver/Techni won ID = [id number] for IBAY, MIGUEL Lab Interpretation (test Abnormal code = 56689-2) [facility]-[id number] 14:45:00 Test Item Value Reference Range Interpretation Comments POC-Sodium (test code = 134 meq/L 135-148 L : TE STED AT [facility] 1542) [address] [place] [address], 770 30: Stock Driver/Techni won ID = [id number] for IBAY, MIGUEL Lab Interpretation (test Abnormal code = 16317-6) [facility]-[id number] 14:45:00 Test Item Value Reference Range Interpretation Comments POC-Glucose (test code = 264 mg/dL 70-110 H : T ESTED AT [facility] 1855) [address] [place] [address], 770 30: Stock Driver/Techni won ID = [id number] for IBAY, MIGUEL Lab Interpretation (test Abnormal code = 52589-2) [facility]-[id number] 14:45:00 Test Item Value Reference Range Interpretation Comments POC-Hemoglobin (test code 6.5 g/dL 13-16.8 L : TESTED AT [facility] = 1856) [address] [place] [address], 770 30: Stock Driver/Techni won ID = [id number] for IBAY, MIGUEL Lab Interpretation (test Abnormal code = 91151-7) [facility]-[id number] 14:45:00 Test Item Value Reference Range Interpretation Comments POC-Hematocrit (test code 19 % 40-50 L : = 1857) Stock Driver/Techni won ID = [id number] for IBAY, MIGUEL Lab Interpretation (test Abnormal code = 93670-1) [facility] [id number] 14:45:00 Test Item Value Reference Range Interpretation Comments TEMP, CELSIUS-POC (BEAKER) (test code = 1834) FIO2-POC (BEAKER) (test code = 1835) PH, ARTERIAL-POC 7.212 7.350-7.450 L (BEAKER) (test code = 1836) PCO2, ARTERIAL-POC 46.4 mm Hg 35.0-45.0 H If pO2 is >180, pCO2 may (BEAKER) (test code be posit ively biased = 1837) PO2, ARTERIAL-POC 96.0 mm Hg 80.0-90.0 H (BEAKER) (test code = 1838) SO2, ARTERIAL-POC 96.0 % 96.0-97.0 (BEAKER) (test code = 1839) HCO3, ARTERIAL-POC 18.6 meq/L 21.0-29.0 L (BEAKER) (test code = 1840) BASE EXCESS, -9.0 meq/L -2.0-3.0 L : TESTED AT [facility] 6720 ARTERIAL-POC [facility], (BEAKER) (test code 92[address]: = 1841) Stock Driver/Techni won ID = [id number] for MIGUEL GANDARA [id number] 14:45:00 Test Item Value Reference Range Interpretation Comments POC-SODIUM (BEAKER) 134 meq/L 135-148 L : TESTED AT [place] [address] (test code = 1542) [facility], [address]: Stock Driver/Techni won ID = [id number] for MIGUEL GANDARA [id number] 14:45:00 Test Item Value Reference Range Interpretation Comments POC-POTASSIUM 5.7 meq/L 3.6-5.5 H : TESTED AT [place] [address] (BEAKER) (test code [facility], = 1540) [address]: Stock Driver/Techni won ID = [id number] for MIGUEL GANDARA [id number] 14:45:00 Test Item Value Reference Range Interpretation Comments POC-HEMOGLOBIN 6.5 g/dL 13.0-16.8 L : TESTED AT [facility] 6720 ([facility] (test code = [place], 185) [address]: Stock Driver/Techni won ID = [id number] for MIGUEL GANDARA [id number] 14:45:00 Test Item Value Reference Range Interpretation Comments POC-HEMATOCRIT 19 % 40-50 L : Stock Driver/Te chnician ID = ([facility] (test code = 281521 for MIGUEL GANDARA 185) [id number] 14:45:00 Test Item Value Reference Range Interpretation Comments POC-GLUCOSE ([facility] 264 mg/dL 70-110 H : TESTE D AT [facility] 6720 (test code = 1855) [place], [address]: Stock Driver/Techni won ID = [id number] for MIGUEL GANDARA POCT-GLUCOSE [id number] 14:32:00 Test Item Value Reference Range Interpretation Comments POC-GLUCOSE METER 70 mg/dL 70-110 : TESTED A T [facility] 67 ([facility] (test code = [place], 1538) [address]: Stock Driver/Techni won ID = [id number] for [facility] JACOBY BLEVINS POC-Blood gases, [id number] 14:27:00 Test Item Value Reference Range Interpretation Comments Temp. Celsius-POC (test code = 1834) FIO2-POC (test code = 1835) pH, Venous-POC (test 7.225 7.320-7.420 L : TESTE D AT [facility] code = 1842) [address] [facility] [place], [address] PCO2, Venous-POC (test 57.9 See_Comment H If pO 2 is >180, pCO2 code = 1843) may be positive ly biased [Automat ed message] The sy stem which generated this result transmit ari reference range : 41.0 - 51.0 mm Hg. The reference r kevin was not used to interpret this result as normal/abnormal . PO2, Venous-POC (test 26.0 See_Comment [Auto mated message] code = 1844) The system whic h generated this result transmit ari reference range : 25.0 - 40.0 mm Hg. The reference r kevin was not used to interpret this result as normal/abnormal . SO2, Venous-POC (test 35.0 % 40-70 L code = 1845) HCO3, Venous-POC (test 24.0 meq/L 21-29 code = 1846) BE, Venous-POC (test -4.0 meq/L -2-3 L : code = 1847) Stock Driver/Techni won ID = [id number] for MIGUEL GANDARA Lab Interpretation Abnormal (test code = 50902-6) [facility]-Blood gases, [id number] 14:27:00 Test Item Value Reference Range Interpretation Comments Temp. Celsius-POC (test code = 1834) FIO2-POC (test code = 1835) pH, Venous-POC (test 7.225 7.320-7.420 L : TESTE D AT [facility] code = 1842) [address], [address] PCO2, Venous-POC (test 57.9 See_Comment H If pO 2 is >180, pCO2 code = 1843) may be positive ly biased [Automat ed message] The sy stem which generated this result transmit ari reference range : 41.0 - 51.0 mm Hg. The reference r kevin was not used to interpret this result as normal/abnormal . PO2, Venous-POC (test 26.0 See_Comment [Auto mated message] code = 1844) The system Umeng generated this result transmit ari reference range : 25.0 - 40.0 mm Hg. The reference r kevin was not used to interpret this result as normal/abnormal . SO2, Venous-POC (test 35.0 % 40-70 L code = 1845) HCO3, Venous-POC (test 24.0 meq/L 21-29 code = 1846) BE, Venous-POC (test -4.0 meq/L -2-3 L : code = 1847) Stock Driver/Techni won ID = [id number] for IBAKaris MIGUEL Lab Interpretation Abnormal (test code = 46866-3) [facility]-Blood gases, [id number] 14:27:00 Test Item Value Reference Range Interpretation Comments Temp. Celsius-POC (test code = 1834) FIO2-POC (test code = 1835) pH, Venous-POC (test 7.225 7.320-7.420 L : TESTE D AT [facility] code = 1842) [address] [place], [address] PCO2, Venous-POC (test 57.9 See_Comment H If pO 2 is >180, pCO2 code = 1843) may be positive ly biased [Automat ed message] The sy stem which generated this result transmit ari reference range : 41.0 - 51.0 mm Hg. The reference r kevin was not used to interpret this result as normal/abnormal . PO2, Venous-POC (test 26.0 See_Comment [Auto mated message] code = 1844) The system Deepclass h generated this result transmit ari reference range : 25.0 - 40.0 mm Hg. The reference r kevin was not used to interpret this result as normal/abnormal . SO2, Venous-POC (test 35.0 % 40-70 L code = 1845) HCO3, Venous-POC (test 24.0 meq/L 21-29 code = 1846) BE, Venous-POC (test -4.0 meq/L -2-3 L : code = 1847) Stock Driver/Techni won ID = [id number] for MIGUEL GANDARA Lab Interpretation Abnormal (test code = 59249-5) [facility], [id number] 14:27:00 Test Item Value Reference Range Interpretation Comments TEMP, CELSIUS-POC (BEAKER) (test code = 1834) FIO2-POC (BEAKER) (test code = 1835) PH, VENOUS-POC 7.225 7.320-7.420 L : TESTED AT [facility] 6720 (BEAKER) (test code [facility], = 1842) [address] PCO2, VENOUS-POC 57.9 mm Hg 41.0-51.0 H If pO2 is > 180, pCO2 may (BEAKER) (test code be posit ively biased = 1843) PO2, VENOUS-POC 26.0 mm Hg 25.0-40.0 (BEAKER) (test code = 1844) SO2, VENOUS-POC 35.0 % 40.0-70.0 L (BEAKER) (test code = 1845) HCO3, VENOUS-POC 24.0 meq/L 21.0-29.0 (BEAKER) (test code = 1846) BASE EXCESS, -4.0 meq/L -2.0-3.0 L : Stock Driver/Tech nician ID VENOUS-POC ([facility] = [id number] for MIGUEL GANDARA (test code = 1847) [id number] 14:27:00 Test Item Value Reference Range Interpretation Comments [facility]-SODIUM [facility] 138 meq/L 135-148 : TESTED AT [place] [address] (test code = 1542) SHANNA [facility], [address]: Stock Driver/Techni won ID = [id number] for MIGUEL GANDARA YOLN-[id number] 14:27:00 Test Item Value Reference Range Interpretation Comments POC-POTASSIUM 6.2 meq/L 3.6-5.5 HH : TESTED AT [place] [address] ([facility] (test code [facility], = 1540) [address]: Stock Driver/Techni won ID = [id number] for MIGUEL GANDARA SOYO-[id number] 14:27:00 Test Item Value Reference Range Interpretation Comments POC-HEMOGLOBIN 6.5 g/dL 13.0-16.8 L : TESTED AT [place] [address] ([facility] (test code = [place] [facility], 1856) [address]: Stock Driver/Techni won ID = [id number] for MIGUEL GANDARA GUNO-[id number] 14:27:00 Test Item Value Reference Range Interpretation Comments POC-HEMATOCRIT 19 % 40-50 L : Stock Driver/Te chnician ID = ([facility] (test code = 555502 for MIGUEL GANDARA 1857) [id number] 14:27:00 Test Item Value Reference Range Interpretation Comments POC-GLUCOSE ([facility] 43 mg/dL 70-110 L : TESTE D AT [place] [address] (test code = 1855) [facility], [address]: Stock Driver/Techni won ID = [id number] for MIGUEL GANDARA CBC W/PLT COUNT & AUTO [id number] 11:27:00 Test Item Value Reference Range Interpretation Comments WHITE BLOOD CELL COUNT ([facility] 17.2 K/ L 3.5-10.5 H (test code = 775) RED BLOOD CELL COUNT ([facility])) 2.89 M/ L 4.63-6.08 L (test code = 761) HEMOGLOBIN (BEAKER) (test code = 7.9 GM/DL 13.7-17.5 L 410) HEMATOCRIT (BEAKER) (test code = 26.1 % 40.1-51.0 L 411) MEAN CORPUSCULAR VOLUME (BEAKER) 90.3 fL 79.0-92.2 (test code = 753) MEAN CORPUSCULAR HEMOGLOBIN 27.3 pg 25.7-32.2 (BEAKER) (test code = 751) MEAN CORPUSCULAR HEMOGLOBIN CONC 30.3 GM/DL 32.3-36.5 L (BEAKER) (test code = 752) RED CELL DISTRIBUTION WIDTH 15.9 % 11.6-14.4 H (BEAKER) (test code = 412) PLATELET COUNT (BEAKER) (test 225 K/CU MM 150-450 code = 756) MEAN PLATELET VOLUME (BEAKER) 10.4 fL 9.4-12.4 (test code = 754) NUCLEATED RED BLOOD CELLS 0 /100 WBC 0-0 (BEAKER) (test code = 413) (CELLAVISION MANUAL DIFF)[id number] 11:27:00 Test Item Value Reference Range Interpretation Comments NEUTROPHILS - REL 78 % (CELLAVISION)(BEAKER) (test code = 2816) LYMPHOCYTES - REL 5 % (CELLAVISION)(BEAKER) (test code = 2817) MONOCYTES - REL 9 % (CELLAVISION)(BEAKER) (test code = 2818) EOSINOPHILS - REL 1 % (CELLAVISION)(BEAKER) (test code = 2819) METAMYELOCYTES - REL 2 % 0-0 H (CELLAVISION)(BEAKER) (test code = 2821) MYELOCYTES - REL 3 % 0-0 H (CELLAVISION)(BEAKER) (test code = 2822) PROMYELOCYTES - REL 1 % 0-0 H (CELLAVSION)(BEAKER) (test code = 2825) BANDS - REL (CELLAVISION)(BEAKER) 1 % 0-10 (test code = 2826) NEUTROPHILS - ABS 13.42 K/ul 1.78-5.38 H (CELLAVISION)(BEAKER) (test code = 2830) LYMPHOCYTES - ABS 0.86 K/ul 1.32-3.57 L (CELLAVISION)(BEAKER) (test code = 2831) MONOCYTES - ABS 1.55 K/uL 0.30-0.82 H (CELLAVISION)(BEAKER) (test code = 2832) EOSINOPHILS - ABS 0.17 K/uL 0.04-0.54 (CELLAVISION)(BEAKER) (test code = 2834) METAMYELOCYTES - ABS 0.34 K/uL 0.00-0.00 H (CELLAVISION)(BEAKER) (test code = 2836) MYELOCYTES-ABS 0.52 K/uL 0.00-0.00 H (CELLAVISION)(BEAKER) (test code = 2837) PROMYELOCYTES - ABS 0.17 K/uL 0.00-0.00 H (CELLAVISION)(BEAKER) (test code = 2838) BANDS - ABS (CELLAVISION)(BEAKER) 0.17 K/uL 0.00-0.80 (test code = 2840) TOTAL COUNTED (BEAKER) (test code 100 = 1351) PLT MORPHOLOGY (BEAKER) (test code Normal = 486) TOXIC GRANULATION (BEAKER) (test Present code = 771) POLYCHROMATOPHILLIC RBCS(BEAKER) 1+ few (test code = 478) ANISOCYTOSIS (BEAKER) (test code = 1+ few 961) MACROCYTES (BEAKER) (test code = 1+ few 964) POIKILOCYTES (BEAKER) (test code = 1+ few 966) SCHISTOCYTES (BEAKER) (test code = 1+ few 765) ELLIPTOCYTES (BEAKER) (test code = 1+ few 962) OVALOCYTES (BEAKER) (test code = 1+ few 477) ACANTHOCYTES (BEAKER) (test code = 1+ few 471) ARTIFACT (CELLAVISION)(BEAKER) Present (test code = 3432) PLATELET CONCENTRATION Adequate (CELLAVISION)(BEAKER) (test code = 3438) Stock Driver ID - Loren Sethi comments: Slide comments:SPUTUM CULTURE + GRAM [id number] 08:40:00 Test Item Value Reference Range Interpretation Comments CULTURE A <1+ Same organi sm has (BEAKER) (test been isolated from code = 1095) cultures(s) of the same body site and collection date . Repeat identification and susceptibility testing performed only after consultation wi th the clinical microb iology laboratory.Refe r to previous cultur e ofStaphylococcu s aureus GRAM STAIN <1+ WBCs RESULT (BEAKER) (test code = 1123) GRAM STAIN 0-5 epithelial RESULT cells (BEAKER) (test code = 749604) GRAM STAIN No organisms seen RESULT (BEAKER) (test code = 701446) <1+ Normal respiratory mendy presentBRONCHIAL CULTURE + GRAM [id number] 08:39:00 Test Item Value Reference Interpretation Comments Range CULTURE (BEAKER) STAPHYLOCOCCUS A <1+ Staph ylococcus (test code = 1095) AUREUS aureus Clindamycin (test S code = 10) Erythromycin (test S code = 4) Linezolid (test code S = 40) Nitrofurantoin (test S code = 23) Oxacillin (test code S = 14) Rifampin (test code = S 43) Tetracycline (test S code = 2) Trimethoprim + S Sulfamethoxazole (test code = 47) Vancomycin (test code S = 13) GRAM STAIN RESULT 3+ WBCs (BEAKER) (test code = 1123) GRAM STAIN RESULT No organisms seen (BEAKER) (test code = 052163) 1+ Normal respiratory mendy [id number] 07:27:00 Test Item Value Reference Range Interpretation Comments PARTIAL THROMBOPLASTIN TIME 77.8 seconds 22.5-36.0 H (BEAKER) (test code = 760) [id number] 06:36:00 Test Item Value Reference Range Interpretation Comments PARTIAL THROMBOPLASTIN TIME 65.8 seconds 22.5-36.0 H (BEAKER) (test code = 760) PROTHROMBIN [id number] 06:35:00 Test Item Value Reference Range Interpretation Comments PROTIME (BEAKER) 16.1 seconds 11.9-14.2 H (test code = 759) INR (BEAKER) (test 1.31 See_Comment [Automat ed message] code = 370) The system Umeng generated this result transmitted ref erence range: <=5.90. The reference range was not used to int erpret this result as normal/abnormal . RECOMMENDED COUMADIN/WARFARIN INR THERAPY RANGESSTANDARD DOSE: 2.0 - 3.0 Includes: PROPHYLAXIS forvenous thrombosis, systemic embolization; TREATMENT for venous thrombosis and/or pulmonary embolus.HIGH RISK: Target INR is 2.5-3.5 for patients with mechanical heart valves.BASIC METABOLIC [id number] 05:07:00 Test Item Value Reference Range Interpretation Comments SODIUM (BEAKER) 136 meq/L 136-145 (test code = 381) POTASSIUM (BEAKER) 3.8 meq/L 3.5-5.1 (test code = 379) CHLORIDE (BEAKER) 102 meq/L 98-107 (test code = 382) CO2 (BEAKER) (test 20 meq/L 22-29 L code = 355) BLOOD UREA NITROGEN 50 mg/dL 7-21 H (BEAKER) (test code = 354) CREATININE (BEAKER) 6.49 mg/dL 0.57-1.25 H (test code = 358) GLUCOSE RANDOM 96 mg/dL 70-105 (BEAKER) (test code = 652) CALCIUM (BEAKER) 8.8 mg/dL 8.4-10.2 (test code = 697) EGFR (BEAKER) (test 11 mL/min/1.73 ESTIMA ARI GFR IS code = 1092) sq m NOT ACCURATE CREATININE CLEARANCE IN PREDICTING GLOMERULAR FILTRATION RATE . ESTIMATED GFR I S NOT APPLICABLE FOR DIALYSIS PATIEN TS. Stock Driver ID - [id number] 04:57:00 Test Item Value Reference Range Interpretation Comments MAGNESIUM (BEAKER) (test code = 2.2 mg/dL 1.6-2.6 627) Stock Driver ID - [id number] 04:57:00 Test Item Value Reference Range Interpretation Comments PHOSPHORUS (BEAKER) (test code = 6.4 mg/dL 2.3-4.7 H 604) Stock Driver ID - ADMINRAD, CHEST, 1 VIEW, NON [id number] 01:08:00Reason for exam:->chest tubes, s/p cardiac surgeryShould this be performed at the bedside?->YesRANCHO [facility]Name: CROW KAUR : 1975 Sex: MFINAL REPORT CLINICAL INDICATION: Postop Comparison: 01/15/2021 The ca rdiomediastinal contours are stable. Central pulmonary vascular congestion and bilateral parenchymalopacities are similar to previous. There is no pneumothorax. A left chest tube has been removed. A left IJ CVC remains in place. Signed: Domingo Duroneport Verified Date/Time: 01/16/2021 01:08:13 POCT- GLUCOSE [id number] 00:14:00 Test Item Value Reference Range Interpretation Comments POC-GLUCOSE METER 96 mg/dL 70-110 : TESTED A T [facility] 6720 (TAMARA) (test code = [place], 1538) [address]: Stock Driver/Techni won ID = [id number] for CRESCENCIO PRIETO [id number] 23:26:00 Test Item Value Reference Range Interpretation Comments PARTIAL THROMBOPLASTIN TIME 54.3 seconds 22.5-36.0 H (DEISIAKER) (test code = 760) Lipid [id number] 22:53:00 Test Item Value Reference Range Interpretation Comments Triglycerides (test 84 mg/dL code = 2571-8) Cholesterol (test code 111 mg/dL = 2093-3) HDL (test code = 25 mg/dL 2085-9) LDL Calculated (test 69 mg/dL code = 10408-2) CARLEY (test code = CARLEY) Triglyceride Reference Range: Low Risk <150 Borderline 150-199 High Risk 200-499 Very High Risk >=500 Cholesterol Reference Range: Low Risk <200 Borderline 200-239 High Risk >240 HDL Cholesterol Reference Range: Low Risk >=60 High Risk <40 LDL Cholesterol Reference Range: Optimal <100 Near Optimal 100-129 Borderline 130-159 High 160-189 Very High >=190 Stock Driver [id number] 22:53:00 Test Item Value Reference Range Interpretation Comments Triglycerides (test 84 mg/dL code = 2571-8) Cholesterol (test code 111 mg/dL = 2093-3) HDL (test code = 25 mg/dL 2084-9) LDL Calculated (test 69 mg/dL code = 94411-6) CARLEY (test code = CARLEY) Triglyceride Reference Range: Low Risk <150 Borderline 150-199 High Risk 200-499 Very High Risk >=500 Cholesterol Reference Range: Low Risk <200 Borderline 200-239 High Risk >240 HDL Cholesterol Reference Range: Low Risk >=60 High Risk <40 LDL Cholesterol Reference Range: Optimal <100 Near Optimal 100-129 Borderline 130-159 High 160-189 Very High >=190 Stock Driver ID - [facility] [id number] 22:53:00 Test Item Value Reference Range Interpretation Comments Triglycerides (test 84 mg/dL code = 2571-8) Cholesterol (test code 111 mg/dL = 3-3) HDL (test code = 25 mg/dL 9) LDL Calculated (test 69 mg/dL code = 40776-9) CARLEY (test code = CARLEY) Triglyceride Reference Range: Low Risk <150 Borderline 150-199 High Risk 200-499 Very High Risk >=500 Cholesterol Reference Range: Low Risk <200 Borderline 200-239 High Risk >240 HDL Cholesterol Reference Range: Low Risk >=60 High Risk <40 LDL Cholesterol Reference Range: Optimal <100 Near Optimal 100-129 Borderline 130-159 High 160-189 Very High >=190 Stock Driver ID - DB [facility] CenterLIPID [id number] 22:53:00 Test Item Value Reference Range Interpretation Comments TRIGLYCERIDES (BEAKER) (test code = 84 mg/dL 540) CHOLESTEROL (BEAKER) (test code = 111 mg/dL 631) HDL CHOLESTEROL (BEAKER) (test code 25 mg/dL = 976) LDL CHOLESTEROL CALCULATED (BEAKER) 69 mg/dL (test code = 633) Triglyceride Reference Range: Low Risk <150 Borderline 150-199 High Risk 200-499 Very High Risk >=500Cholesterol Reference Range: Low Risk <200 Borderline 200-239 High Risk >240HDL Cholesterol Reference Range: Low Risk >=60 High Risk <40LDL Cholesterol Reference Range: Optimal <100 Near Optimal 100-129 Borderline 130-159 High 160-189 Very High >=190 Stock Driver ID - DBBLOOD [id number] 19:01:00 Test Item Value Reference Range Interpretation Comments CULTURE (BEAKER) (test No growth in 5 days code = 1095) BLOOD [id number] 18:01:00 Test Item Value Reference Range Interpretation Comments CULTURE (BEAKER) (test No growth in 5 days code = 1095) POCT-GLUCOSE [id number] 12:26:00 Test Item Value Reference Range Interpretation Comments POC-GLUCOSE METER 101 mg/dL 70-110 : TESTED A T [facility] 6720 (BEAKER) (test code = [place], 1538) [address]: Stock Driver/Techni won ID = [id number] for Paige Russell [id number] 09:21:00 Test Item Value Reference Range Interpretation Comments PARTIAL THROMBOPLASTIN TIME 35.0 seconds 22.5-36.0 (BEAKER) (test code = 760) RAD, CHEST, 1 VIEW, NON [id number] 09:14:00Reason for exam:->chest tubes, s/p cardiac surgeryShould this be performed at the bedside?->Yes [facility] : 1975 Sex: MFINAL REPORT RAD, CHEST, 1 VIEW, NON DEPT INDICATION: chest tubes, s/p cardiac surgery COMPARISON: Prior day's exam FINDINGS: Portable frontal view of the chest. IMPRESSION: Support Lines: Stable. Lungs and pleura: Unchanged airspace and interstitial opacities. No pneumothorax.Heart and mediastinum: Stable contours. Stable surgical changes.Additional findings: None.Signed: JR Tate Robert MDReport Verified Date/Time: 01/15/2021 09:14:18 Reading Location:[address] Neuro Reading Room POCT-GLUCOSE [id number] 08:23:00 Test Item Value Reference Range Interpretation Comments POC-GLUCOSE METER 104 mg/dL 70-110 : TESTED A T [facility] 6720 (BEAKER) (test code = [place], 1538) [address]: Stock Driver/Techni won ID = [id number] for Da vis, Paige CBC W/PLT COUNT & AUTO [id number] 06:50:00 Test Item Value Reference Range Interpretation Comments WHITE BLOOD CELL COUNT (BEAKER) 16.0 K/ L 3.5-10.5 H (test code = 775) RED BLOOD CELL COUNT (BEAKER) 2.89 M/ L 4.63-6.08 L (test code = 761) HEMOGLOBIN (BEAKER) (test code = 8.0 GM/DL 13.7-17.5 L 410) HEMATOCRIT (BEAKER) (test code = 26.0 % 40.1-51.0 L 411) MEAN CORPUSCULAR VOLUME (BEAKER) 90.0 fL 79.0-92.2 (test code = 753) MEAN CORPUSCULAR HEMOGLOBIN 27.7 pg 25.7-32.2 (BEAKER) (test code = 751) MEAN CORPUSCULAR HEMOGLOBIN CONC 30.8 GM/DL 32.3-36.5 L (BEAKER) (test code = 752) RED CELL DISTRIBUTION WIDTH 15.9 % 11.6-14.4 H (BEAKER) (test code = 412) PLATELET COUNT (BEAKER) (test 167 K/CU MM 150-450 code = 756) MEAN PLATELET VOLUME (BEAKER) 10.1 fL 9.4-12.4 (test code = 754) NUCLEATED RED BLOOD CELLS 0 /100 WBC 0-0 (BEAKER) (test code = 413) (CELLAVISION MANUAL DIFF)2021-01-15 06:50:00 Test Item Value Reference Range Interpretation Comments NEUTROPHILS - REL 86 % (CELLAVISION)(BEAKER) (test code = 2816) LYMPHOCYTES - REL 6 % (CELLAVISION)(BEAKER) (test code = 2817) MONOCYTES - REL 5 % (CELLAVISION)(BEAKER) (test code = 2818) METAMYELOCYTES - REL 1 % 0-0 H (CELLAVISION)(BEAKER) (test code = 2821) MYELOCYTES - REL 2 % 0-0 H (CELLAVISION)(BEAKER) (test code = 2822) NEUTROPHILS - ABS 13.76 K/ul 1.78-5.38 H (CELLAVISION)(BEAKER) (test code = 2830) LYMPHOCYTES - ABS 0.96 K/ul 1.32-3.57 L (CELLAVISION)(BEAKER) (test code = 2831) MONOCYTES - ABS 0.80 K/uL 0.30-0.82 (CELLAVISION)(BEAKER) (test code = 2832) METAMYELOCYTES - ABS 0.16 K/uL 0.00-0.00 H (CELLAVISION)(BEAKER) (test code = 2836) MYELOCYTES-ABS 0.32 K/uL 0.00-0.00 H (CELLAVISION)(BEAKER) (test code = 2837) TOTAL COUNTED (BEAKER) (test code 100 = 1351) WBC MORPHOLOGY (BEAKER) (test code Normal = 487) PLT MORPHOLOGY (BEAKER) (test code Normal = 486) POLYCHROMATOPHILLIC RBCS(BEAKER) 1+ few (test code = 478) HYPOCHROMIA (BEAKER) (test code = 1+ few 963) ANISOCYTOSIS (BEAKER) (test code = 1+ few 961) MACROCYTES (BEAKER) (test code = 1+ few 964) POIKILOCYTES (BEAKER) (test code = 1+ few 966) BASOPHILIC STIPPLING (BEAKER) Present (test code = 473) ARTIFACT (CELLAVISION)(BEAKER) Present (test code = 3432) PLATELET CONCENTRATION Adequate (CELLAVISION)(BEAKER) (test code = 3432) Stock Driver ID - Dariela OverholtUser comments: Slide comments:[id number] 04:17:00 Test Item Value Reference Range Interpretation Comments MAGNESIUM (BEAKER) (test code = 2.1 mg/dL 1.6-2.6 627) Stock Driver ID - KENNETH WCOMPREHENSIVE METABOLIC [id number] 04:17:00 Test Item Value Reference Range Interpretation Comments TOTAL PROTEIN 5.6 gm/dL 6.0-8.3 L (BEAKER) (test code = 770) ALBUMIN (BEAKER) 2.5 g/dL 3.5-5.0 L (test code = 1145) ALKALINE PHOSPHATASE 96 U/L 40-150 (BEAKER) (test code = 346) BILIRUBIN TOTAL 0.5 mg/dL 0.2-1.2 (BEAKER) (test code = 377) SODIUM (BEAKER) (test 136 meq/L 136-145 code = 381) POTASSIUM (BEAKER) 3.9 meq/L 3.5-5.1 (test code = 379) CHLORIDE (BEAKER) 102 meq/L 98-107 (test code = 382) CO2 (BEAKER) (test 23 meq/L 22-29 code = 355) BLOOD UREA NITROGEN 37 mg/dL 7-21 H (BEAKER) (test code = 354) CREATININE (BEAKER) 4.48 mg/dL 0.57-1.25 H (test code = 358) GLUCOSE RANDOM 124 mg/dL 70-105 H (BEAKER) (test code = 652) CALCIUM (BEAKER) 8.7 mg/dL 8.4-10.2 (test code = 697) AST (SGOT) (BEAKER) 37 U/L 5-34 H (test code = 353) ALT (SGPT) (BEAKER) 17 U/L 6-55 (test code = 347) EGFR (BEAKER) (test 18 mL/min/1.73 ESTIMA ARI GFR IS code = 1092) sq m NOT ACCURATE CREATININE CLEARANCE IN PREDICTING GLOMERULAR FILTRATION RATE . ESTIMATED GFR I S NOT APPLICABLE FOR DIALYSIS PATIEN TS. Stock Driver ID - KENNETH WPROTHROMBIN [id number] 03:53:00 Test Item Value Reference Range Interpretation Comments PROTIME (BEAKER) 15.1 seconds 11.9-14.2 H (test code = 759) INR (BEAKER) (test 1.21 See_Comment [Automat ed message] code = 370) The system Um[employer] generated this result transmitted ref erence range: <=5.90. The reference range was not used to int erpret this result as normal/abnormal . RECOMMENDED COUMADIN/WARFARIN INR THERAPY RANGESSTANDARD DOSE: 2.0 - 3.0 Includes: PROPHYLAXIS forvenous thrombosis, systemic embolization; TREATMENT for venous thrombosis and/or pulmonary embolus.HIGH RISK: Target INR is 2.5-3.5 for patients with mechanical heart valves.POCT-GLUCOSE [id number] 21:26:00 Test Item Value Reference Range Interpretation Comments POC-GLUCOSE METER 77 mg/dL 70-110 : Notified RN/MD: TESTED (BEAKER) (test code = AT [facility] [address] [facility] 1538) [facility], [facility] 30: Stock Driver/Techni won ID = [id number] for Tiago calvo (contract), [place] PROTHROMBIN [id number] 13:30:00 Test Item Value Reference Range Interpretation Comments PROTIME (BEAKER) 15.3 seconds 11.9-14.2 H (test code = 759) INR (BEAKER) (test 1.23 See_Comment [Automat ed message] code = 370) The system Um[employer] generated this result transmitted ref erence range: <=5.90. The reference range was not used to int erpret this result as normal/abnormal . RECOMMENDED COUMADIN/WARFARIN INR THERAPY RANGESSTANDARD DOSE: 2.0 - 3.0 Includes: PROPHYLAXIS forvenous thrombosis, systemic embolization; TREATMENT for venous thrombosis and/or pulmonary embolus.HIGH RISK: Target INR is 2.5-3.5 for patients with mechanical heart valves.Hepatitis B surface [id number] 11:35:00 Test Item Value Reference Range Interpretation Comments HBsAg Screen (test code Nonreactive Nonreactive = 5195-3) CARLEY (test code = CARLEY) Specimen is considered negative for HBsAg. Lab Interpretation (test Normal code = 44235-9) [facility]Hep[facility] surface [id number] 11:35:00 Test Item Value Reference Range Interpretation Comments HBsAg Screen (test code Nonreactive Nonreactive = 5195-3) CARLEY (test code = CARLEY) Specimen is considered negative for HBsAg. Lab Interpretation (test Normal code = 33240-8) [facility] B surface [id number] 11:35:00 Test Item Value Reference Range Interpretation Comments HBsAg Screen (test code Nonreactive Nonreactive = 5195-3) CARLEY (test code = CARLEY) Specimen is considered negative for HBsAg. Lab Interpretation (test Normal code = 43748-4) [facility] SURFACE [id number] 11:35:00 Test Item Value Reference Range Interpretation Comments HEPATITIS B SURFACE ANTIGEN (2) Nonreactive Nonreactive (BEAKER) (test code = 2585) Specimen is considered negative for HBsAg.SURGICALLY OBTAINED CULTURE + GRAM [id number] 08:16:00 Test Item Value Reference Interpretation Comments Range CULTURE (BEAKER) STAPHYLOCOCCUS A <1+ Staph ylococcus (test code = 1095) AUREUS aureus Clindamycin (test S code = 10) Erythromycin (test S code = 4) Linezolid (test code S = 40) Nitrofurantoin (test S code = 23) Oxacillin (test code S = 14) Rifampin (test code = S 43) Tetracycline (test S code = 2) Trimethoprim + S Sulfamethoxazole (test code = 47) Vancomycin (test code S = 13) GRAM STAIN RESULT <1+ WBCs (BEAKER) (test code = 1123) GRAM STAIN RESULT No organisms seen (BEAKER) (test code = 677104) CBC W/PLT COUNT & AUTO [id number] 08:08:00 Test Item Value Reference Range Interpretation Comments WHITE BLOOD CELL COUNT (BEAKER) 17.5 K/ L 3.5-10.5 H (test code = 775) RED BLOOD CELL COUNT (BEAKER) 2.79 M/ L 4.63-6.08 L (test code = 761) HEMOGLOBIN (BEAKER) (test code = 7.6 GM/DL 13.7-17.5 L 410) HEMATOCRIT (BEAKER) (test code = 25.1 % 40.1-51.0 L 411) MEAN CORPUSCULAR VOLUME (BEAKER) 90.0 fL 79.0-92.2 (test code = 753) MEAN CORPUSCULAR HEMOGLOBIN 27.2 pg 25.7-32.2 (BEAKER) (test code = 751) MEAN CORPUSCULAR HEMOGLOBIN CONC 30.3 GM/DL 32.3-36.5 L (BEAKER) (test code = 752) RED CELL DISTRIBUTION WIDTH 15.8 % 11.6-14.4 H (BEAKER) (test code = 412) PLATELET COUNT (BEAKER) (test 129 K/CU MM 150-450 L code = 756) MEAN PLATELET VOLUME (BEAKER) 10.7 fL 9.4-12.4 (test code = 754) NUCLEATED RED BLOOD CELLS 0 /100 WBC 0-0 (BEAKER) (test code = 413) (CELLAVISION MANUAL DIFF)2021-01-14 08:08:00 Test Item Value Reference Range Interpretation Comments NEUTROPHILS - REL 86 % (CELLAVISION)(BEAKER) (test code = 2816) LYMPHOCYTES - REL 3 % (CELLAVISION)(BEAKER) (test code = 2817) MONOCYTES - REL 5 % (CELLAVISION)(BEAKER) (test code = 2818) METAMYELOCYTES - REL 2 % 0-0 H (CELLAVISION)(BEAKER) (test code = 2821) MYELOCYTES - REL 1 % 0-0 H (CELLAVISION)(BEAKER) (test code = 2822) PROMYELOCYTES - REL 1 % 0-0 H (CELLAVSION)(BEAKER) (test code = 2825) BANDS - REL (CELLAVISION)(BEAKER) 2 % 0-10 (test code = 2826) NEUTROPHILS - ABS 15.05 K/ul 1.78-5.38 H (CELLAVISION)(BEAKER) (test code = 2830) LYMPHOCYTES - ABS 0.53 K/ul 1.32-3.57 L (CELLAVISION)(BEAKER) (test code = 2831) MONOCYTES - ABS 0.88 K/uL 0.30-0.82 H (CELLAVISION)(BEAKER) (test code = 2832) METAMYELOCYTES - ABS 0.35 K/uL 0.00-0.00 H (CELLAVISION)(BEAKER) (test code = 2836) MYELOCYTES-ABS 0.18 K/uL 0.00-0.00 H (CELLAVISION)(BEAKER) (test code = 2837) PROMYELOCYTES - ABS 0.18 K/uL 0.00-0.00 H (CELLAVISION)(BEAKER) (test code = 2838) BANDS - ABS (CELLAVISION)(BEAKER) 0.35 K/uL 0.00-0.80 (test code = 2840) TOTAL COUNTED (BEAKER) (test code 100 = 1351) WBC MORPHOLOGY (BEAKER) (test Normal code = 487) PLT MORPHOLOGY (BEAKER) (test Normal code = 486) HYPOCHROMIA (BEAKER) (test code = 1+ few 963) ANISOCYTOSIS (BEAKER) (test code 1+ few = 961) POIKILOCYTES (BEAKER) (test code 2+ moderate = 966) OVALOCYTES (BEAKER) (test code = 2+ moderate 477) ARTIFACT (CELLAVISION)(BEAKER) Present (test code = 3432) PLATELET CONCENTRATION Decreased (CELLAVISION)(BEAKER) (test code = 3438) Stock Driver ID - Dariela OverholtUser comments: Slide comments:POCT-GLUCOSE METER 2021-01-14 07:33:00 Test Item Value Reference Range Interpretation Comments POC-GLUCOSE METER 103 mg/dL 70-110 : TESTED A T [facility] 6720 (BEAKER) (test code = [place], 1538) [address]: Stock Driver/Techni won ID = [id number] for Manuelito Chavez RAD, CHEST, 1 VIEW, NON [id number] 05:56:00Reason for exam:->ettShould this be performed at the bedside?->Yes [facility] : 1975 Sex: MFINAL REPORT RAD, CHEST, 1 VIEW, NON DEPT INDICATION: ett COMPARISON: Prior day's exam FINDINGS: Portable frontal view of the chest. IMPRESSION: Support Lines: Left-sided dialysis catheter with tip overlying the junction of the brachiocephalic vein and SVC, unchangedfrom prior exam. Left chest tube. A second tube now projects to the right of the spine (formerly projected over the left hemidiaphragm).Lungs and pleura: Bilateral lower lobe airspace disease is slightly increased from prior exam. No pneumothorax.Heart and mediastinum: Stable contours. Stable surgicalchanges.Additional findings: None. Signed: Re Cantu MDReport Verified Date/Time: 01/14/2021 05:56:32 [id number] 04:21:00 Test Item Value Reference Range Interpretation Comments MAGNESIUM (BEAKER) (test code = 2.3 mg/dL 1.6-2.6 627) Stock Driver ID - VALDEZ MCOMPREHENSIVE METABOLIC [id number] 04:05:00 Test Item Value Reference Range Interpretation Comments TOTAL PROTEIN 5.2 gm/dL 6.0-8.3 L (BEAKER) (test code = 770) ALBUMIN (BEAKER) 2.3 g/dL 3.5-5.0 L (test code = 1145) ALKALINE PHOSPHATASE 72 U/L 40-150 (BEAKER) (test code = 346) BILIRUBIN TOTAL 0.6 mg/dL 0.2-1.2 (BEAKER) (test code = 377) SODIUM (BEAKER) (test 138 meq/L 136-145 code = 381) POTASSIUM (BEAKER) 4.4 meq/L 3.5-5.1 (test code = 379) CHLORIDE (BEAKER) 105 meq/L 98-107 (test code = 382) CO2 (BEAKER) (test 20 meq/L 22-29 L code = 355) BLOOD UREA NITROGEN 55 mg/dL 7-21 H (BEAKER) (test code = 354) CREATININE (BEAKER) 5.56 mg/dL 0.57-1.25 H (test code = 358) GLUCOSE RANDOM 93 mg/dL 70-105 (BEAKER) (test code = 652) CALCIUM (BEAKER) 8.3 mg/dL 8.4-10.2 L (test code = 697) AST (SGOT) (BEAKER) 36 U/L 5-34 H (test code = 353) ALT (SGPT) (BEAKER) 18 U/L 6-55 (test code = 347) EGFR (BEAKER) (test 14 mL/min/1.73 ESTIMA ARI GFR IS code = 1092) sq m NOT ACCURATE CREATININE CLEARANCE IN PREDICTING GLOMERULAR FILTRATION RATE . ESTIMATED GFR I S NOT APPLICABLE FOR DIALYSIS PATIEN TS. Stock Driver ID - DBPOCT-GLUCOSE [id number] 03:46:00 Test Item Value Reference Range Interpretation Comments POC-GLUCOSE METER 83 mg/dL 70-110 : TESTED A T [facility] 67[address] [facility] (test code = [place], 1538) [address]: Stock Driver/Techni won ID = [id number] for Manuelito Busby RAD, CHEST, 1 VIEW, NON [id number] 19:37:00Reason for exam:->[facility] HD catheter placementShould this be performed at the bedside?->Yes [facility] : 1975 Sex: MFINAL REPORT Chest, one view. HISTORY: [facility] HD catheter placement COM PARISON: Radiograph from earlier today IMPRESSION: Interval extubation and removal of the left IJ pulmonary arterial catheter. Interval insertion of a left IJ hemodialysis catheter with the tip at thejunction of the left brachiocephalic vein and superior vena cava. To left-sided chest tubes are unchanged in position There has been increased hazy opacity of the lungs which is most likely due to pulmonary edema. A left retrocardiac opacity is increasing and most likely due to atelectasis. Aspirationis considered less likely. No pleural effusion or pneumothorax. The cardiac silhouette is unchanged in size. No acute bone abnormality. Signed: Jerzy Ferrell MDRepting Verified Date/Time: 01/13/2021 19:37: 01 Reading Location: [facility] B1 C013W Consult Reading Room Central Line (HD catheter J-Wire)2021-01-13 18:52:29Chapo Kennedy NP 01/13/2021 6:58 PMCentral Line (HD catheter J-Wire) Date/Time: 15:30 PMPerformed by: Chapo Kennedy NPAuthorized by: Benedicto Witt MD Consent: Verbal consent obtained. Written consent obtained.Risks and benefits: risks, benefits and alternatives were discussedConsent given by: power of attorneyPatient understanding: patient states understanding ofthe procedure being performedPatient consent: the patient's understanding of the procedure matches consent givenProcedure consent: procedure consent matches procedure scheduledRelevant documents: relevant documents present and verifiedTest results: test results available and properly labeledSite marked: the operative site was markedImaging studies: imaging studies availablePatient identity confirmed:arm bandTime out: Immediately prior to procedure a "time out" was called to verify the correct patient, procedure, equipment, senior support engineer and site/side marked as required.Indications: vascular access(dialysis catheter) Anesthesia:Local Anesthetic: lidocaine 1% without epinephrineAnesthetic total: 1 mL Sedation:Patient sedated: no Preparation: skin prepped with 2% chlorhexidine and skin prepped with BetadineSkin prep agent dried: skin prep agent completely dried prior to procedureSterile barriers:all five maximum sterile barriers used - cap, mask, sterile gown, sterile gloves, and large sterile sheetHand hygiene: hand hygiene performed prior to central venous catheter insertionLocation details:left internal jugularPatient position: flatCatheter type: double lumenCatheter size: 12 FrPre-procedure: landmarks identifiedUltrasound guidance: noNumber of attempts: 1Successful placement: yesPost-procedure: line sutured and dressing appliedAssessment: placement verified by x-rayPatient tolerance: sourav joel tolerated the procedure well with no immediate complicationsImmediate Post-Procedure Note Date/Time: 01/13/2021 6:58 PMAssistants to the procedure: NonePre-procedure diagnosis: s/p MVRPost-procedure diagnosis: s/p MVRProcedures Performed: Central Line (HD catheter J-Wire)Specimens removed: NoneEstimated blood loss (mL): NoneComplications: NoneType of anesthesia: NoneGrafts or Implants: NoneCH[facility]areCentral [facility] (HD catheter J-Wire) 2021-01-13 18:52:29Chapo Kennedy NP 01/13/2021 6:58 PMCentral Line (HD catheter J-Wire) Date/Time: 15:30 PMPerformed by: Chapo Kennedy NPAuthorized by: Benedicto Witt MD Consent: Verbal consent obtained. Written consent obtained.Risks and benefits: risks, benefits and alternatives were discussedConsent given by: power of attorneyPatient understanding: patient states understanding ofthe procedure being performedPatient consent: the patient's understanding of the procedure matches consent givenProcedure consent: procedure consent matches procedure scheduledRelevant documents: relevant documents present and verifiedTest results: test results available and properly labeledSite marked: the operative site was markedImaging studies: imaging studies availablePatient identity confirmed:arm bandTime out: Immediately prior to procedure a "time out" was called to verify the correct patient, procedure, equipment, senior support engineer and site/side marked as required.Indications: vascular access(dialysis catheter) Anesthesia:Local Anesthetic: lidocaine 1% without epinephrineAnesthetic total: 1 mL Sedation:Patient sedated: no Preparation: skin prepped with 2% chlorhexidine and skin prepped with BetadineSkin prep agent dried: skin prep agent completely dried prior to procedureSterile barriers:all five maximum sterile barriers used - cap, mask, sterile gown, sterile gloves, and large sterile sheetHand hygiene: hand hygiene performed prior to central venous catheter insertionLocation details:left internal jugularPatient position: flatCatheter type: double lumenCatheter size: 12 FrPre-procedure: landmarks identifiedUltrasound guidance: noNumber of attempts: 1Successful placement: yesPost-procedure: line sutured and dressing appliedAssessment: placement verified by x-rayPatient tolerance: sourav joel tolerated the procedure well with no immediate complicationsImmediate Post-Procedure Note Date/Time: 01/13/2021 6:58 PMAssistants to the procedure: NonePre-procedure diagnosis: s/p MVRPost-procedure diagnosis: s/p MVRProcedures Performed: Central Line (HD catheter J-Wire)Specimens removed: NoneEstimated blood loss (mL): NoneComplications: NoneType of anesthesia: NoneGrafts or Implants: NoneCH[facility] TulareCentral Line (HD catheter J-Wire) 2021-01-13 18:52:29Chapo Kennedy NP 01/13/2021 6:58 PMCentral Line (HD catheter J-Wire) Date/Time: 15:30 PMPerformed by: Chapo Kennedy NPAuthorized by: Benedicto Witt MD Consent: Verbal consent obtained. Written consent obtained.Risks and benefits: risks, benefits and alternatives were discussedConsent given by: power of attorneyPatient understanding: patient states understanding ofthe procedure being performedPatient consent: the patient's understanding of the procedure matches consent givenProcedure consent: procedure consent matches procedure scheduledRelevant documents: relevant documents present and verifiedTest results: test results available and properly labeledSite marked: the operative site was markedImaging studies: imaging studies availablePatient identity confirmed:arm bandTime out: Immediately prior to procedure a "time out" was called to verify the correct patient, procedure, equipment, senior support engineer and site/side marked as required.Indications: vascular access(dialysis catheter) Anesthesia:Local Anesthetic: lidocaine 1% without epinephrineAnesthetic total: 1 mL Sedation:Patient sedated: no Preparation: skin prepped with 2% chlorhexidine and skin prepped with BetadineSkin prep agent dried: skin prep agent completely dried prior to procedureSterile barriers:all five maximum sterile barriers used - cap, mask, sterile gown, sterile gloves, and large sterile sheetHand hygiene: hand hygiene performed prior to central venous catheter insertionLocation details:left internal jugularPatient position: flatCatheter type: double lumenCatheter size: 12 FrPre-procedure: landmarks identifiedUltrasound guidance: noNumber of attempts: 1Successful placement: yesPost-procedure: line sutured and dressing appliedAssessment: placement verified by x-rayPatient tolerance: sourav edwardsreena tolerated the procedure well with no immediate complicationsImmediate Post-Procedure Note Date/Time: 01/13/2021 6:58 PMAssistants to the procedure: NonePre-procedure diagnosis: s/p MVRPost-procedure diagnosis: s/p MVRProcedures Performed: Central Line (HD catheter J-Wire)Specimens removed: NoneEstimated blood loss (mL): NoneComplications: NoneType of anesthesia: NoneGrafts or Implants: NoneCH[facility] TularePOCT-GLUCOSE [id number] 17:36:00 Test Item Value Reference Range Interpretation Comments POC-GLUCOSE METER 100 mg/dL 70-110 : TESTED A T [facility] 6720 (BEAKER) (test code = NORM [place] [facility], 1538) [id number]: Stock Driver/Techni won ID = [id number] for NICK MARIANABRAN [employer]ER[employer] METABOLIC [id number] 15:58:00 Test Item Value Reference Range Interpretation Comments SODIUM (BEAKER) 140 meq/L 136-145 (test code = 381) POTASSIUM (BEAKER) 4.0 meq/L 3.5-5.1 (test code = 379) CHLORIDE (BEAKER) 104 meq/L 98-107 (test code = 382) CO2 (BEAKER) (test 24 meq/L 22-29 code = 355) BLOOD UREA NITROGEN 47 mg/dL 7-21 H (BEAKER) (test code = 354) CREATININE (BEAKER) 4.62 mg/dL 0.57-1.25 H (test code = 358) GLUCOSE RANDOM 105 mg/dL 70-105 (BEAKER) (test code = 652) CALCIUM (BEAKER) 8.4 mg/dL 8.4-10.2 (test code = 697) EGFR (BEAKER) (test 17 mL/min/1.73 ESTIMA ARI GFR IS code = 1092) sq m NOT ACCURATE CREATININE CLEARANCE IN PREDICTING GLOMERULAR FILTRATION RATE . ESTIMATED GFR I S NOT APPLICABLE FOR DIALYSIS PATIEN TS. Stock Driver ID - [id number] 15:56:00 Test Item Value Reference Range Interpretation Comments MAGNESIUM (BEAKER) (test code = 2.2 mg/dL 1.6-2.6 627) Stock Driver ID - DBBLOOD GAS, [id number] 15:43:00 Test Item Value Reference Range Interpretation Comments PH ARTERIAL (BEAKER) (test code = 7.44 7.35-7.45 383) PCO2 ARTERIAL (BEAKER) (test code 38 mm Hg 35-45 = 384) PO2 ARTERIAL (BEAKER) (test code = 130 mm Hg 80-90 H 385) O2 SATURATION ARTERIAL (BEAKER) 98.7 % 96.0-97.0 H (test code = 386) HCO3 ARTERIAL (BEAKER) (test code 25 mmol/L 21-29 = 388) BASE EXCESS ARTERIAL (BEAKER) 0.6 mmol/L -2.0-3.0 (test code = 387) PATIENT TEMPERATURE (BEAKER) (test 37.5 code = 1818) FIO2 (BEAKER) (test code = 1819) 40.0 [id number] 12:57:00 Test Item Value Reference Range Interpretation Comments POTASSIUM (BEAKER) (test code = 3.9 meq/L 3.5-5.1 379) Stock Driver ID - VIRGILIO MBLOOD GAS, [id number] 12:14:00 Test Item Value Reference Range Interpretation Comments PH ARTERIAL (BEAKER) (test code = 7.44 7.35-7.45 383) PCO2 ARTERIAL (BEAKER) (test code 36 mm Hg 35-45 = 384) PO2 ARTERIAL (BEAKER) (test code = 173 mm Hg 80-90 H 385) O2 SATURATION ARTERIAL (BEAKER) 99.2 % 96.0-97.0 H (test code = 386) HCO3 ARTERIAL (BEAKER) (test code 24 mmol/L 21-29 = 388) BASE EXCESS ARTERIAL (BEAKER) 0.1 mmol/L -2.0-3.0 (test code = 387) PATIENT TEMPERATURE (BEAKER) (test 37.5 code = 1818) FIO2 (BEAKER) (test code = 1819) 40.0 POCT-GLUCOSE [id number] 12:04:00 Test Item Value Reference Range Interpretation Comments POC-GLUCOSE METER 105 mg/dL 70-110 : TESTED A T [facility] 6720 (BEAKER) (test code = [place], 1538) [address]: Stock Driver/Techni won ID = [id number] for DU ABRAN ESPANA [id number] 09:59:00 Test Item Value Reference Range Interpretation Comments MAGNESIUM (BEAKER) (test code = 2.2 mg/dL 1.6-2.6 627) Stock Driver ID - [id number] 09:59:00 Test Item Value Reference Range Interpretation Comments PHOSPHORUS (BEAKER) (test code = 4.6 mg/dL 2.3-4.7 604) Stock Driver ID - [id number] 09:59:00 Test Item Value Reference Range Interpretation Comments POTASSIUM (BEAKER) (test code = 3.7 meq/L 3.5-5.1 379) Stock Driver ID - BSGLUCOSE-STAT [id number] 09:38:00 Test Item Value Reference Range Interpretation Comments GLUCOSE RANDOM (BEAKER) (test code 119 mg/dL 70-110 H = 652) HGB/HCT (H&H) - STAT [id number] 09:38:00 Test Item Value Reference Range Interpretation Comments HEMOGLOBIN (BEAKER) (test code = 8.3 GM/DL 13.0-16.8 L 410) HEMATOCRIT (BEAKER) (test code = 24.0 % 40.0-50.0 L 411) POTASSIUM-STAT [id number] 09:38:00 Test Item Value Reference Range Interpretation Comments POTASSIUM (BEAKER) (test code = 3.4 meq/L 3.6-5.5 L 379) BLOOD GAS, [id number] 09:37:00 Test Item Value Reference Range Interpretation Comments PH ARTERIAL (BEAKER) (test code = 7.46 7.35-7.45 H 383) PCO2 ARTERIAL (BEAKER) (test code 36 mm Hg 35-45 = 384) PO2 ARTERIAL (BEAKER) (test code = 127 mm Hg 80-90 H 385) O2 SATURATION ARTERIAL (BEAKER) 98.7 % 96.0-97.0 H (test code = 386) HCO3 ARTERIAL (BEAKER) (test code 25 mmol/L 21-29 = 388) BASE EXCESS ARTERIAL (BEAKER) 0.8 mmol/L -2.0-3.0 (test code = 387) PATIENT TEMPERATURE (BEAKER) (test 36.2 code = 1818) FIO2 (BEAKER) (test code = 1819) 40.0 SODIUM NA-STAT [id number] 09:34:00 Test Item Value Reference Range Interpretation Comments SODIUM (BEAKER) (test code = 381) 135 meq/L 136-145 L SPUTUM CULTURE + GRAM [id number] 08:30:00 Test Item Value Reference Interpretation Comments Range CULTURE (BEAKER) STAPHYLOCOCCUS A <1+ Staph ylococcus (test code = 1095) AUREUS aureus Clindamycin (test S code = 10) Erythromycin (test S code = 4) Linezolid (test code S = 40) Nitrofurantoin (test S code = 23) Oxacillin (test code S = 14) Rifampin (test code = S 43) Tetracycline (test S code = 2) Trimethoprim + S Sulfamethoxazole (test code = 47) Vancomycin (test code S = 13) GRAM STAIN RESULT <1+ WBCs (BEAKER) (test code = 1123) GRAM STAIN RESULT 5-10 epithelial (BEAKER) (test code = cells 384752) GRAM STAIN RESULT No organisms seen (BEAKER) (test code = 249854) <1+ Normal respiratory mendy presentCBC W/PLT COUNT & AUTO DIFFERENTIAL 2021-01-13 08:23:00 Test Item Value Reference Range Interpretation Comments WHITE BLOOD CELL COUNT (BEAKER) 19.0 K/ L 3.5-10.5 H (test code = 775) RED BLOOD CELL COUNT (BEAKER) 2.79 M/ L 4.63-6.08 L (test code = 761) HEMOGLOBIN (BEAKER) (test code = 7.8 GM/DL 13.7-17.5 L 410) HEMATOCRIT (BEAKER) (test code = 24.7 % 40.1-51.0 L 411) MEAN CORPUSCULAR VOLUME (BEAKER) 88.5 fL 79.0-92.2 (test code = 753) MEAN CORPUSCULAR HEMOGLOBIN 28.0 pg 25.7-32.2 (BEAKER) (test code = 751) MEAN CORPUSCULAR HEMOGLOBIN CONC 31.6 GM/DL 32.3-36.5 L (BEAKER) (test code = 752) RED CELL DISTRIBUTION WIDTH 15.7 % 11.6-14.4 H (BEAKER) (test code = 412) PLATELET COUNT (BEAKER) (test 105 K/CU MM 150-450 L code = 756) MEAN PLATELET VOLUME (BEAKER) 12.0 fL 9.4-12.4 (test code = 754) NUCLEATED RED BLOOD CELLS 0 /100 WBC 0-0 (BEAKER) (test code = 413) (CELLAVISION MANUAL DIFF)2021-01-13 08:23:00 Test Item Value Reference Range Interpretation Comments NEUTROPHILS - REL 87 % (CELLAVISION)(BEAKER) (test code = 2816) LYMPHOCYTES - REL 2 % (CELLAVISION)(BEAKER) (test code = 2817) MONOCYTES - REL 3 % (CELLAVISION)(BEAKER) (test code = 2818) EOSINOPHILS - REL 1 % (CELLAVISION)(BEAKER) (test code = 2819) METAMYELOCYTES - REL 2 % 0-0 H (CELLAVISION)(BEAKER) (test code = 2821) MYELOCYTES - REL 2 % 0-0 H (CELLAVISION)(BEAKER) (test code = 2822) PROMYELOCYTES - REL 2 % 0-0 H (CELLAVSION)(BEAKER) (test code = 2825) BANDS - REL (CELLAVISION)(BEAKER) 1 % 0-10 (test code = 2826) NEUTROPHILS - ABS 16.53 K/ul 1.78-5.38 H (CELLAVISION)(BEAKER) (test code = 2830) LYMPHOCYTES - ABS 0.38 K/ul 1.32-3.57 L (CELLAVISION)(BEAKER) (test code = 2831) MONOCYTES - ABS 0.57 K/uL 0.30-0.82 (CELLAVISION)(BEAKER) (test code = 2832) EOSINOPHILS - ABS 0.19 K/uL 0.04-0.54 (CELLAVISION)(BEAKER) (test code = 2834) METAMYELOCYTES - ABS 0.38 K/uL 0.00-0.00 H (CELLAVISION)(BEAKER) (test code = 2836) MYELOCYTES-ABS 0.38 K/uL 0.00-0.00 H (CELLAVISION)(BEAKER) (test code = 2837) PROMYELOCYTES - ABS 0.38 K/uL 0.00-0.00 H (CELLAVISION)(BEAKER) (test code = 2838) BANDS - ABS (CELLAVISION)(BEAKER) 0.19 K/uL 0.00-0.80 (test code = 2840) TOTAL COUNTED (BEAKER) (test code 100 = 1351) SMUDGE CELLS (BEAKER) (test code Present = 1371) GIANT PLATELETS (BEAKER) (test Present code = 313) HYPOCHROMIA (BEAKER) (test code = 1+ few 963) ANISOCYTOSIS (BEAKER) (test code 1+ few = 961) POIKILOCYTES (BEAKER) (test code 1+ few = 966) OVALOCYTES (BEAKER) (test code = 2+ moderate 477) TEAR DROP CELLS (BEAKER) (test 1+ few code = 481) PLATELET CONCENTRATION Decreased (CELLAVISION)(BEAKER) (test code = 3438) Stock Driver ID - Sun Menendez comments: Slide comments:RAD, CHEST, 1 VIEW, NON [id number] 07:21:00Reason for exam:->ettShould this be performed at the bedside?->Yes[facility] : 1975 Sex: MFINAL REPORT RAD, CHEST, 1 VIEW, NON DEPT INDICATION: ett COMPARISON: Prior day's exam FINDINGS: Portable frontal view of the chest. IMPRESSION: Support Lines: Stable. Lungs and pleura: No new consolidation. No pneumothorax.Heart and mediastinum: Stable contours. Stable surgical changes.Additional findings: None. Signed: JR Bebeto, Taye Taylor Verified Date/Time: 01/13/2021 07:21:00 Reading Location: [facility] Reading Room COMPREHENSIVE METABOLIC [id number] 04:58:00 Test Item Value Reference Range Interpretation Comments TOTAL PROTEIN 5.2 gm/dL 6.0-8.3 L (BEAKER) (test code = 770) ALBUMIN (BEAKER) 2.5 g/dL 3.5-5.0 L (test code = 1145) ALKALINE PHOSPHATASE 70 U/L 40-150 (BEAKER) (test code = 346) BILIRUBIN TOTAL 0.8 mg/dL 0.2-1.2 (BEAKER) (test code = 377) SODIUM (BEAKER) (test 138 meq/L 136-145 code = 381) POTASSIUM (BEAKER) 3.8 meq/L 3.5-5.1 (test code = 379) CHLORIDE (BEAKER) 104 meq/L 98-107 (test code = 382) CO2 (BEAKER) (test 23 meq/L 22-29 code = 355) BLOOD UREA NITROGEN 46 mg/dL 7-21 H (BEAKER) (test code = 354) CREATININE (BEAKER) 4.19 mg/dL 0.57-1.25 H (test code = 358) GLUCOSE RANDOM 110 mg/dL 70-105 H (BEAKER) (test code = 652) CALCIUM (BEAKER) 8.4 mg/dL 8.4-10.2 (test code = 697) AST (SGOT) (BEAKER) 45 U/L 5-34 H (test code = 353) ALT (SGPT) (BEAKER) 25 U/L 6-55 (test code = 347) EGFR (BEAKER) (test 19 mL/min/1.73 ESTIMA ARI GFR IS code = 1092) sq m NOT ACCURATE CREATININE CLEARANCE IN PREDICTING GLOMERULAR FILTRATION RATE . ESTIMATED GFR I S NOT APPLICABLE FOR DIALYSIS PATIEN TS. Stock Driver ID - LINA [id number] 04:46:00 Test Item Value Reference Range Interpretation Comments MAGNESIUM (BEAKER) (test code = 2.2 mg/dL 1.6-2.6 627) Stock Driver ID - LINA [id number] 04:46:00 Test Item Value Reference Range Interpretation Comments PHOSPHORUS (BEAKER) (test code = 4.3 mg/dL 2.3-4.7 604) Stock Driver ID - LINA LBLOOD GAS, [id number] 04:11:00 Test Item Value Reference Range Interpretation Comments PH ARTERIAL (BEAKER) (test code = 7.48 7.35-7.45 H 383) PCO2 ARTERIAL (BEAKER) (test code 33 mm Hg 35-45 L = 384) PO2 ARTERIAL (BEAKER) (test code = 150 mm Hg 80-90 H 385) O2 SATURATION ARTERIAL (BEAKER) 99.1 % 96.0-97.0 H (test code = 386) HCO3 ARTERIAL (BEAKER) (test code 24 mmol/L 21-29 = 388) BASE EXCESS ARTERIAL (BEAKER) 0.7 mmol/L -2.0-3.0 (test code = 387) PATIENT TEMPERATURE (BEAKER) (test 36.2 code = 1818) FIO2 (BEAKER) (test code = 1819) 40.0 [id number] 21:46:00 Test Item Value Reference Range Interpretation Comments MAGNESIUM (BEAKER) (test code = 2.3 mg/dL 1.6-2.6 627) Stock Driver ID - [id number] 21:46:00 Test Item Value Reference Range Interpretation Comments PHOSPHORUS (BEAKER) (test code = 4.3 mg/dL 2.3-4.7 604) Stock Driver ID - [id number] 21:46:00 Test Item Value Reference Range Interpretation Comments POTASSIUM (BEAKER) (test code = 4.2 meq/L 3.5-5.1 379) Stock Driver ID - BSPH, [id number] 21:28:00 Test Item Value Reference Range Interpretation Comments PH ARTERIAL (BEAKER) (test code = 383) 7.46 7.35-7.45 H BASIC METABOLIC [id number] 15:47:00 Test Item Value Reference Range Interpretation Comments SODIUM (BEAKER) 142 meq/L 136-145 (test code = 381) POTASSIUM (BEAKER) 4.4 meq/L 3.5-5.1 (test code = 379) CHLORIDE (BEAKER) 107 meq/L 98-107 (test code = 382) CO2 (BEAKER) (test 23 meq/L 22-29 code = 355) BLOOD UREA NITROGEN 59 mg/dL 7-21 H (BEAKER) (test code = 354) CREATININE (BEAKER) 5.31 mg/dL 0.57-1.25 H (test code = 358) GLUCOSE RANDOM 106 mg/dL 70-105 H (BEAKER) (test code = 652) CALCIUM (BEAKER) 8.4 mg/dL 8.4-10.2 (test code = 697) EGFR (BEAKER) (test 14 mL/min/1.73 ESTIMA ARI GFR IS code = 1092) sq m NOT ACCURATE CREATININE CLEARANCE IN PREDICTING GLOMERULAR FILTRATION RATE . ESTIMATED GFR I S NOT APPLICABLE FOR DIALYSIS PATIEN TS. Stock Driver ID - VALDEZ [id number] 15:39:00 Test Item Value Reference Range Interpretation Comments MAGNESIUM (BEAKER) (test code = 2.4 mg/dL 1.6-2.6 627) Stock Driver ID - VALDEZ [id number] 15:39:00 Test Item Value Reference Range Interpretation Comments PHOSPHORUS (BEAKER) (test code = 5.1 mg/dL 2.3-4.7 H 604) Stock Driver ID - VALDEZ MBASIC METABOLIC [id number] 10:19:00 Test Item Value Reference Range Interpretation Comments SODIUM (BEAKER) 142 meq/L 136-145 (test code = 381) POTASSIUM (BEAKER) 4.7 meq/L 3.5-5.1 (test code = 379) CHLORIDE (BEAKER) 106 meq/L 98-107 (test code = 382) CO2 (BEAKER) (test 23 meq/L 22-29 code = 355) BLOOD UREA NITROGEN 66 mg/dL 7-21 H (BEAKER) (test code = 354) CREATININE (BEAKER) 6.09 mg/dL 0.57-1.25 H (test code = 358) GLUCOSE RANDOM 111 mg/dL 70-105 H (BEAKER) (test code = 652) CALCIUM (BEAKER) 8.5 mg/dL 8.4-10.2 (test code = 697) EGFR (BEAKER) (test 12 mL/min/1.73 ESTIMA ARI GFR IS code = 1092) sq m NOT ACCURATE CREATININE CLEARANCE IN PREDICTING GLOMERULAR FILTRATION RATE . ESTIMATED GFR I S NOT APPLICABLE FOR DIALYSIS PATIEN TS. Stock Driver ID - VALDEZ [id number] 10:18:00 Test Item Value Reference Range Interpretation Comments MAGNESIUM (BEAKER) (test code = 2.5 mg/dL 1.6-2.6 627) Stock Driver ID - VALDEZ [id number] 10:18:00 Test Item Value Reference Range Interpretation Comments PHOSPHORUS (BEAKER) (test code = 5.9 mg/dL 2.3-4.7 H 604) Stock Driver ID - VALDEZ MCBC W/PLT COUNT & AUTO [id number] 08:15:00 Test Item Value Reference Range Interpretation Comments WHITE BLOOD CELL COUNT (BEAKER) 28.3 K/ L 3.5-10.5 H (test code = 775) RED BLOOD CELL COUNT (BEAKER) 2.83 M/ L 4.63-6.08 L (test code = 761) HEMOGLOBIN (BEAKER) (test code = 7.8 GM/DL 13.7-17.5 L 410) HEMATOCRIT (BEAKER) (test code = 24.9 % 40.1-51.0 L 411) MEAN CORPUSCULAR VOLUME (BEAKER) 88.0 fL 79.0-92.2 (test code = 753) MEAN CORPUSCULAR HEMOGLOBIN 27.6 pg 25.7-32.2 (BEAKER) (test code = 751) MEAN CORPUSCULAR HEMOGLOBIN CONC 31.3 GM/DL 32.3-36.5 L (BEAKER) (test code = 752) RED CELL DISTRIBUTION WIDTH 15.6 % 11.6-14.4 H (BEAKER) (test code = 412) PLATELET COUNT (BEAKER) (test 141 K/CU MM 150-450 L code = 756) MEAN PLATELET VOLUME (BEAKER) 11.2 fL 9.4-12.4 (test code = 754) NUCLEATED RED BLOOD CELLS 1 /100 WBC 0-0 H (BEAKER) (test code = 413) (CELLAVISION MANUAL DIFF)2021-01-12 08:15:00 Test Item Value Reference Range Interpretation Comments NEUTROPHILS - REL 89 % (CELLAVISION)(BEAKER) (test code = 2816) LYMPHOCYTES - REL 1 % (CELLAVISION)(BEAKER) (test code = 2817) MONOCYTES - REL 4 % (CELLAVISION)(BEAKER) (test code = 2818) METAMYELOCYTES - REL 3 % 0-0 H (CELLAVISION)(BEAKER) (test code = 2821) BANDS - REL (CELLAVISION)(BEAKER) 2 % 0-10 (test code = 2826) ATYPICAL LYMPHOCYTES - REL 1 % 0-0 H (CELLAVISION)(BEAKER) (test code = 2829) NEUTROPHILS - ABS 25.19 K/ul 1.78-5.38 H (CELLAVISION)(BEAKER) (test code = 2830) LYMPHOCYTES - ABS 0.28 K/ul 1.32-3.57 L (CELLAVISION)(BEAKER) (test code = 2831) MONOCYTES - ABS 1.13 K/uL 0.30-0.82 H (CELLAVISION)(BEAKER) (test code = 2832) METAMYELOCYTES - ABS 0.85 K/uL 0.00-0.00 H (CELLAVISION)(BEAKER) (test code = 2836) BANDS - ABS (CELLAVISION)(BEAKER) 0.57 K/uL 0.00-0.80 (test code = 2840) ATYPICAL LYMPHOCYTES - ABS 0.28 K/uL 0.00-0.00 H (CELLAVISION)(BEAKER) (test code = 2858) TOTAL COUNTED (BEAKER) (test code 100 = 1351) WBC MORPHOLOGY (BEAKER) (test code Normal = 487) PLT MORPHOLOGY (BEAKER) (test code Normal = 486) POLYCHROMATOPHILLIC RBCS(BEAKER) 1+ few (test code = 478) ANISOCYTOSIS (BEAKER) (test code = 1+ few 961) POIKILOCYTES (BEAKER) (test code = 1+ few 966) SCHISTOCYTES (BEAKER) (test code = 1+ few 765) ELLIPTOCYTES (BEAKER) (test code = 1+ few 962) OVALOCYTES (BEAKER) (test code = 1+ few 477) TEAR DROP CELLS (BEAKER) (test 1+ few code = 481) ARTIFACT (CELLAVISION)(BEAKER) Present (test code = 3432) HELMET CELLS (CELLAVISION)(BEAKER) 1+ few (test code = 3434) PLATELET CONCENTRATION Decreased (CELLAVISION)(BEAKER) (test code = 3438) Stock Driver ID - Zaira Simons comments: Slide comments:POCT-GLUCOSE METER 2021-01-12 07:17:00 Test Item Value Reference Range Interpretation Comments POC-GLUCOSE METER 129 mg/dL 70-110 H : TESTED Elias T [facility] 6720 (BEAKER) (test code = [place], 1538) [address]: Stock Driver/Techni won ID = [id number] for Be rki, Meti COMPREHENSIVE METABOLIC [id number] 04:04:00 Test Item Value Reference Range Interpretation Comments TOTAL PROTEIN 5.0 gm/dL 6.0-8.3 L (BEAKER) (test code = 770) ALBUMIN (BEAKER) 2.5 g/dL 3.5-5.0 L (test code = 1145) ALKALINE PHOSPHATASE 70 U/L 40-150 (BEAKER) (test code = 346) BILIRUBIN TOTAL 1.0 mg/dL 0.2-1.2 (BEAKER) (test code = 377) SODIUM (BEAKER) (test 142 meq/L 136-145 code = 381) POTASSIUM (BEAKER) 4.7 meq/L 3.5-5.1 (test code = 379) CHLORIDE (BEAKER) 106 meq/L 98-107 (test code = 382) CO2 (BEAKER) (test 23 meq/L 22-29 code = 355) BLOOD UREA NITROGEN 69 mg/dL 7-21 H (BEAKER) (test code = 354) CREATININE (BEAKER) 6.20 mg/dL 0.57-1.25 H (test code = 358) GLUCOSE RANDOM 139 mg/dL 70-105 H (BEAKER) (test code = 652) CALCIUM (BEAKER) 8.7 mg/dL 8.4-10.2 (test code = 697) AST (SGOT) (BEAKER) 68 U/L 5-34 H (test code = 353) ALT (SGPT) (BEAKER) 40 U/L 6-55 (test code = 347) EGFR (BEAKER) (test 12 mL/min/1.73 ESTIMA ARI GFR IS code = 1092) sq m NOT ACCURATE CREATININE CLEARANCE IN PREDICTING GLOMERULAR FILTRATION RATE . ESTIMATED GFR I S NOT APPLICABLE FOR DIALYSIS PATIEN TS. Stock Driver ID - VALDEZ [id number] 03:58:00 Test Item Value Reference Range Interpretation Comments MAGNESIUM (BEAKER) (test code = 2.7 mg/dL 1.6-2.6 H 627) Stock Driver ID - VALDEZ [id number] 03:58:00 Test Item Value Reference Range Interpretation Comments PHOSPHORUS (BEAKER) (test code = 5.8 mg/dL 2.3-4.7 H 604) Stock Driver ID - VALDEZ MLACTIC ACID, [id number] 03:50:00 Test Item Value Reference Range Interpretation Comments LACTATE BLOOD ARTERIAL (2) 1.0 mmol/L 0.5-2.2 (BEAKER) (test code = 2874) Stock Driver ID - VALDEZ MOXYGEN SATURATION, [id number] 03:42:00 Test Item Value Reference Range Interpretation Comments O2 SATURATION (MEASURED) (BEAKER) 70.7 % (test code = 1455) BLOOD GAS, [id number] 03:42:00 Test Item Value Reference Range Interpretation Comments PH ARTERIAL (BEAKER) (test code = 7.45 7.35-7.45 383) PCO2 ARTERIAL (BEAKER) (test code 35 mm Hg 35-45 = 384) PO2 ARTERIAL (BEAKER) (test code = 156 mm Hg 80-90 H 385) O2 SATURATION ARTERIAL (BEAKER) 99.1 % 96.0-97.0 H (test code = 386) HCO3 ARTERIAL (BEAKER) (test code 24 mmol/L 21-29 = 388) BASE EXCESS ARTERIAL (BEAKER) 0.1 mmol/L -2.0-3.0 (test code = 387) PATIENT TEMPERATURE (BEAKER) (test 36.2 code = 1818) FIO2 (BEAKER) (test code = 1819) 40.0 CALCIUM, [id number] 03:41:00 Test Item Value Reference Range Interpretation Comments CALCIUM IONIZED (BEAKER) (test 1.15 mmol/L 1.12-1.27 code = 698) PH, BLOOD (BEAKER) (test code = 7.44 1810) POCT-GLUCOSE [id number] 03:37:00 Test Item Value Reference Range Interpretation Comments POC-GLUCOSE METER 132 mg/dL 70-110 H : TESTED A T [facility] 6720 (BEAKER) (test code = [place], 1538) [address]: Stock Driver/Techni won ID = [id number] for Be rki, Meti RAD, CHEST, 1 VIEW, NON [id number] 03:17:00Reason for exam:->ettShould this be performed at the bedside?->Yes [facility] : 1975 Sex: MFINAL REPORT CLINICAL INDICATION: Support lines. Comparison: 01/11/2021 at 1946 hours The patient is rotated to the left. The cardiomediastinal contours are stable. Central pulmonary vascular congestion and bilateral parenchymal opacities are unchanged. There is no pneumothorax. Support lines are stable. Signed: Domingo Duron Verified Date/Time: 01/12/2021 03:17:44 BASIC METABOLIC [id number] 22:54:00 Test Item Value Reference Range Interpretation Comments SODIUM (BEAKER) 138 meq/L 136-145 (test code = 381) POTASSIUM (BEAKER) 4.9 meq/L 3.5-5.1 (test code = 379) CHLORIDE (BEAKER) 103 meq/L 98-107 (test code = 382) CO2 (BEAKER) (test 20 meq/L 22-29 L code = 355) BLOOD UREA NITROGEN 77 mg/dL 7-21 H (BEAKER) (test code = 354) CREATININE (BEAKER) 6.80 mg/dL 0.57-1.25 H (test code = 358) GLUCOSE RANDOM 182 mg/dL 70-105 H (BEAKER) (test code = 652) CALCIUM (BEAKER) 8.9 mg/dL 8.4-10.2 (test code = 697) EGFR (BEAKER) (test 11 mL/min/1.73 ESTIMA ARI GFR IS code = 1092) sq m NOT ACCURATE CREATININE CLEARANCE IN PREDICTING GLOMERULAR FILTRATION RATE . ESTIMATED GFR I S NOT APPLICABLE FOR DIALYSIS PATIEN TS. Stock Driver ID - BSLACTIC ACID, [id number] 22:45:00 Test Item Value Reference Range Interpretation Comments LACTATE BLOOD ARTERIAL (2) 1.9 mmol/L 0.5-2.2 (BEAKER) (test code = 2874) Stock Driver ID - BSBLOOD GAS, [id number] 22:37:00 Test Item Value Reference Range Interpretation Comments PH ARTERIAL (BEAKER) (test code = 7.39 7.35-7.45 383) PCO2 ARTERIAL (BEAKER) (test code 36 mm Hg 35-45 = 384) PO2 ARTERIAL (BEAKER) (test code 145 mm Hg 80-90 H = 385) O2 SATURATION ARTERIAL (BEAKER) 98.9 % 96.0-97.0 H (test code = 386) HCO3 ARTERIAL (BEAKER) (test code 22 mmol/L 21-29 = 388) BASE EXCESS ARTERIAL (BEAKER) -2.9 mmol/L -2.0-3.0 L (test code = 387) PATIENT TEMPERATURE (BEAKER) 36.3 (test code = 1818) FIO2 (BEAKER) (test code = 1819) 40.0 Thromboelastograph (TEG)2021-01-11 21:36:00 Test Item Value Reference Range Interpretation Comments TEG Activated Clotting 5.6 See_Comment [Aut omated message] Time (test code = The system which 99561-5) generated this result transmitted ref erence range: 4.0 - 7. 0 minutes. The re ference range was not u sed to interpret this result as normal/abnor mal. TEG Fibrinogen Activity 71.6 See_Comment [Au tomated message] (test code = 61215-1) The sy stem which generated this result transmitted ref erence range: 61.0 - 7 3.0 degrees. The re ference range was not u sed to interpret this result as normal/abnor mal. TEG Platelet Aggregation 64.6 See_Comment [A utomated message] (test code = 43547-0) The sy stem which generated this result transmitted ref erence range: 55.0 - 6 5.0 MM. The reference r kevin was not used to interpret this result as normal/abnor mal. TEG Fibrinolysis (test 0.0 % 0-5 code = 78554-8) TEG-H Activated Clotting 5.8 See_Comment [A utomated message] Time (test code = 1411) The system which generated this result transmitted ref erence range: 4.0 - 7. 0 minutes. The re ference range was not u sed to interpret this result as normal/abnor mal. TEG-H Fibrinogen Activity 69.3 See_Comment [ Automated message] (test code = 1412) The syste m which generated this result transmitted ref erence range: 61.0 - 7 3.0 degrees. The re ference range was not u sed to interpret this result as normal/abnor mal. TEG-H Platelet 59.3 See_Comment [Automated m essage] Aggregation (test code = The system which 1413) generated this result transmitted ref erence range: 55.0 - 6 5.0 MM. The reference r kevin was not used to interpret this result as normal/abnor mal. TEG-H Fibrinolysis (test 0.3 % 0-5 code = 1414) Lab Interpretation (test Normal code = 67098-3) [facility]00 Test Item Value Reference Range Interpretation Comments TEG Activated Clotting 5.6 See_Comment [Aut omated message] Time (test code = The system which 09789-8) generated this result transmitted ref erence range: 4.0 - 7. 0 minutes. The re ference range was not u sed to interpret this result as normal/abnor mal. TEG Fibrinogen Activity 71.6 See_Comment [Au tomated message] (test code = 85196-0) The sy stem which generated this result transmitted ref erence range: 61.0 - 7 3.0 degrees. The re ference range was not u sed to interpret this result as normal/abnor mal. TEG Platelet Aggregation 64.6 See_Comment [A utomated message] (test code = 54549-8) The sy stem which generated this result transmitted ref erence range: 55.0 - 6 5.0 MM. The reference r kevin was not used to interpret this result as normal/abnor mal. TEG Fibrinolysis (test 0.0 % 0-5 code = 29507-6) TEG-H Activated Clotting 5.8 See_Comment [A utomated message] Time (test code = 1411) The system which generated this result transmitted ref erence range: 4.0 - 7. 0 minutes. The re ference range was not u sed to interpret this result as normal/abnor mal. TEG-H Fibrinogen Activity 69.3 See_Comment [ Automated message] (test code = 1412) The syste m which generated this result transmitted ref erence range: 61.0 - 7 3.0 degrees. The re ference range was not u sed to interpret this result as normal/abnor mal. TEG-H Platelet 59.3 See_Comment [Automated m essage] Aggregation (test code = The system which 1413) generated this result transmitted ref erence range: 55.0 - 6 5.0 MM. The reference r kevin was not used to interpret this result as normal/abnor mal. TEG-H Fibrinolysis (test 0.3 % 0-5 code = 1414) Lab Interpretation (test Normal code = 43408-1) [facility] 21:36:00 Test Item Value Reference Range Interpretation Comments TEG Activated Clotting 5.6 See_Comment [Aut omated message] Time (test code = The system which 34088-3) generated this result transmitted ref erence range: 4.0 - 7. 0 minutes. The re ference range was not u sed to interpret this result as normal/abnor mal. TEG Fibrinogen Activity 71.6 See_Comment [Au tomated message] (test code = 95570-8) The sy stem which generated this result transmitted ref erence range: 61.0 - 7 3.0 degrees. The re ference range was not u sed to interpret this result as normal/abnor mal. TEG Platelet Aggregation 64.6 See_Comment [A utomated message] (test code = 45469-3) The sy stem which generated this result transmitted ref erence range: 55.0 - 6 5.0 MM. The reference r kevin was not used to interpret this result as normal/abnor mal. TEG Fibrinolysis (test 0.0 % 0-5 code = 73937-5) TEG-H Activated Clotting 5.8 See_Comment [A utomated message] Time (test code = 1411) The system which generated this result transmitted ref erence range: 4.0 - 7. 0 minutes. The re ference range was not u sed to interpret this result as normal/abnor mal. TEG-H Fibrinogen Activity 69.3 See_Comment [ Automated message] (test code = 1412) The syste m which generated this result transmitted ref erence range: 61.0 - 7 3.0 degrees. The re ference range was not u sed to interpret this result as normal/abnor mal. TEG-H Platelet 59.3 See_Comment [Automated m essage] Aggregation (test code = The system which 1413) generated this result transmitted ref erence range: 55.0 - 6 5.0 MM. The reference r kevin was not used to interpret this result as normal/abnor mal. TEG-H Fibrinolysis (test 0.3 % 0-5 code = 1414) Lab Interpretation (test Normal code = 37695-0) [facility] 21:36:00 Test Item Value Reference Range Interpretation Comments TEG ACTIVATED CLOTTING TIME 5.6 minutes 4.0-7.0 (BEAKER) (test code = 1407) TEG FIBRINOGEN ACTIVITY (BEAKER) 71.6 degrees 61.0-73.0 (test code = 1408) TEG PLT. AGGREGATION (BEAKER) 64.6 MM 55.0-65.0 (test code = 1409) TEG FIBRINOLYSIS (BEAKER) (test 0.0 % 0.0-5.0 code = 1410) [facility] ACTIVATED CLOTTING TIME 5.8 minutes 4.0-7.0 (BEAKER) (test code = 1411) [facility] FIBRINOGEN ACTIVITY (BEAKER) 69.3 degrees 61.0-73.0 (test code = 1412) [facility] PLT. AGGREGATION (BEAKER) 59.3 MM 55.0-65.0 (test code = 1413) [facility] FIBRINOLYSIS (BEAKER) (test 0.3 % 0.0-5.0 code = 1414) (CELLAVISION MANUAL DIFF)2021-01-11 21:11:00 Test Item Value Reference Range Interpretation Comments NEUTROPHILS - REL 79 % (CELLAVISION)(BEAKER) (test code = 2816) LYMPHOCYTES - REL 2 % (CELLAVISION)(BEAKER) (test code = 2817) MONOCYTES - REL 3 % (CELLAVISION)(BEAKER) (test code = 2818) EOSINOPHILS - REL 1 % (CELLAVISION)(BEAKER) (test code = 2819) METAMYELOCYTES - REL 2 % 0-0 H (CELLAVISION)(BEAKER) (test code = 2821) BANDS - REL (CELLAVISION)(BEAKER) 12 % 0-10 H (test code = 2826) ATYPICAL LYMPHOCYTES - REL 2 % 0-0 H (CELLAVISION)(BEAKER) (test code = 2829) NEUTROPHILS - ABS 31.52 K/ul 1.78-5.38 H (CELLAVISION)(BEAKER) (test code = 2830) LYMPHOCYTES - ABS 0.80 K/ul 1.32-3.57 L (CELLAVISION)(BEAKER) (test code = 2831) MONOCYTES - ABS 1.20 K/uL 0.30-0.82 H (CELLAVISION)(BEAKER) (test code = 2832) EOSINOPHILS - ABS 0.40 K/uL 0.04-0.54 (CELLAVISION)(BEAKER) (test code = 2834) METAMYELOCYTES - ABS 0.80 K/uL 0.00-0.00 H (CELLAVISION)(BEAKER) (test code = 2836) BANDS - ABS (CELLAVISION)(BEAKER) 4.79 K/uL 0.00-0.80 H (test code = 2840) ATYPICAL LYMPHOCYTES - ABS 0.80 K/uL 0.00-0.00 H (CELLAVISION)(BEAKER) (test code = 2858) TOTAL COUNTED (BEAKER) (test code 100 = 1351) MANUAL NRBC PER 100 CELLS 1 /100 WBC 0-0 H (BEAKER) (test code = 1353) PLT MORPHOLOGY (BEAKER) (test Normal code = 486) VACUOLATED NEUTROPHILS (BEAKER) Present (test code = 483) ANISOCYTOSIS (BEAKER) (test code 2+ moderate = 961) MACROCYTES (BEAKER) (test code = 2+ moderate 964) POIKILOCYTES (BEAKER) (test code 3+ many = 966) SCHISTOCYTES (BEAKER) (test code 1+ few = 765) ELLIPTOCYTES (BEAKER) (test code 1+ few = 962) TEAR DROP CELLS (BEAKER) (test 1+ few code = 481) CHIKIS CELLS (BEAKER) (test code = 1+ few 474) ARTIFACT (CELLAVISION)(BEAKER) Present (test code = 3432) PLATELET CONCENTRATION Decreased (CELLAVISION)(BEAKER) (test code = 3438) Stock Driver ID - ToritoSimran comments: Slide comments:BLOOD GAS, ARTERIAL 2021-01-11 21:00:00 Test Item Value Reference Range Interpretation Comments PH ARTERIAL (BEAKER) (test code = 7.41 7.35-7.45 383) PCO2 ARTERIAL (BEAKER) (test code 35 mm Hg 35-45 = 384) PO2 ARTERIAL (BEAKER) (test code 198 mm Hg 80-90 H = 385) O2 SATURATION ARTERIAL (BEAKER) 99.4 % 96.0-97.0 H (test code = 386) HCO3 ARTERIAL (BEAKER) (test code 22 mmol/L 21-29 = 388) BASE EXCESS ARTERIAL (BEAKER) -3.2 mmol/L -2.0-3.0 L (test code = 387) PATIENT TEMPERATURE (BEAKER) 34.3 (test code = 1818) FIO2 (BEAKER) (test code = 1819) 60.0 OXYGEN SATURATION, [id number] 20:58:00 Test Item Value Reference Range Interpretation Comments O2 SATURATION (MEASURED) (BEAKER) 76.5 % (test code = 1455) BASIC METABOLIC [id number] 20:23:00 Test Item Value Reference Range Interpretation Comments SODIUM (BEAKER) 140 meq/L 136-145 (test code = 381) POTASSIUM (BEAKER) 4.8 meq/L 3.5-5.1 (test code = 379) CHLORIDE (BEAKER) 105 meq/L 98-107 (test code = 382) CO2 (BEAKER) (test 21 meq/L 22-29 L code = 355) BLOOD UREA NITROGEN 74 mg/dL 7-21 H (BEAKER) (test code = 354) CREATININE (BEAKER) 6.71 mg/dL 0.57-1.25 H (test code = 358) GLUCOSE RANDOM 179 mg/dL 70-105 H (BEAKER) (test code = 652) CALCIUM (BEAKER) 9.3 mg/dL 8.4-10.2 (test code = 697) EGFR (BEAKER) (test 11 mL/min/1.73 ESTIMA ARI GFR IS code = 1092) sq m NOT ACCURATE CREATININE CLEARANCE IN PREDICTING GLOMERULAR FILTRATION RATE . ESTIMATED GFR I S NOT APPLICABLE FOR DIALYSIS PATIEN TS. Stock Driver ID - BSBLOOD GAS, [id number] 20:19:00 Test Item Value Reference Range Interpretation Comments PH ARTERIAL (BEAKER) (test code = 7.30 7.35-7.45 L 383) PCO2 ARTERIAL (BEAKER) (test code 42 mm Hg 35-45 = 384) PO2 ARTERIAL (BEAKER) (test code 151 mm Hg 80-90 H = 385) O2 SATURATION ARTERIAL (BEAKER) 98.8 % 96.0-97.0 H (test code = 386) HCO3 ARTERIAL (BEAKER) (test code 21 mmol/L 21-29 = 388) BASE EXCESS ARTERIAL (BEAKER) -5.6 mmol/L -2.0-3.0 L (test code = 387) PATIENT TEMPERATURE (BEAKER) 36.7 (test code = 1818) FIO2 (BEAKER) (test code = 1819) 60.0 GLUCOSE-STAT [id number] 20:19:00 Test Item Value Reference Range Interpretation Comments GLUCOSE RANDOM (BEAKER) (test code 172 mg/dL 70-110 H = 652) HGB/HCT (H&H) - STAT [id number] 20:19:00 Test Item Value Reference Range Interpretation Comments HEMOGLOBIN (BEAKER) (test code = 9.4 GM/DL 13.0-16.8 L 410) HEMATOCRIT (BEAKER) (test code = 28.0 % 40.0-50.0 L 411) SODIUM NA-STAT [id number] 20:17:00 Test Item Value Reference Range Interpretation Comments SODIUM (BEAKER) (test code = 381) 137 meq/L 136-145 POTASSIUM-STAT [id number] 20:17:00 Test Item Value Reference Range Interpretation Comments POTASSIUM (BEAKER) (test code = 4.4 meq/L 3.6-5.5 379) CALCIUM, [id number] 20:17:00 Test Item Value Reference Range Interpretation Comments CALCIUM IONIZED (BEAKER) (test 1.21 mmol/L 1.12-1.27 code = 698) PH, BLOOD (BEAKER) (test code = 7.28 1810) [id number] 20:13:00 Test Item Value Reference Range Interpretation Comments MAGNESIUM (BEAKER) (test code = 2.7 mg/dL 1.6-2.6 H 627) Stock Driver ID - [id number] 20:13:00 Test Item Value Reference Range Interpretation Comments PHOSPHORUS (BEAKER) (test code = 8.8 mg/dL 2.3-4.7 H 604) Stock Driver ID - BSLACTIC ACID, [id number] 20:08:00 Test Item Value Reference Range Interpretation Comments LACTATE BLOOD ARTERIAL (2) 2.4 mmol/L 0.5-2.2 H (BEAKER) (test code = 2874) Stock Driver ID - BSRAD, CHEST, 1 VIEW, NON [id number] 20:04:00Reason for exam:- >s/p cv surgeryShould this be performed at the bedside?->Yes [facility] : 1975 Sex: MFINAL REPORT History: Postop. Comparison: None. Findings: A single v iew of the chest is submitted. There is been interval sternotomy and cardiac valve surgery. The cardiac silhouette is within normal limits for size. There is mild central vascular engorgement and diffuse interstitial opacification, which is likely exaggerated by supine positioning but may reflect mild pulmonary edema. Patchy mid and lower lung airspace opacities may reflect a combination of atelectasis and edema but pneumonitis should be excluded clinically. There is no pneumothorax or large pleural collection. The tip of an endotracheal tube is 3.7 cm above the nitin. A left IJ PA catheter tipoverlies the right pulmonary artery. An enteric tube tip overlies left upper quadrant. A mediastinaldrain and left chest tube are in place. Signed: Domingo Duron [facility] Verified Date/Time: 01/11/2021 20:04:03 [id number] 20:02:00 Test Item Value Reference Range Interpretation Comments FIBRINOGEN LEVEL (BEAKER) (test 318 mg/dl 225-434 code = 658) [id number] 20:02:00 Test Item Value Reference Range Interpretation Comments PARTIAL THROMBOPLASTIN TIME 30.3 seconds 22.5-36.0 (BEAKER) (test code = 760) PROTHROMBIN [id number] 20:01:00 Test Item Value Reference Range Interpretation Comments PROTIME (BEAKER) 18.8 seconds 11.9-14.2 H (test code = 759) INR (BEAKER) (test 1.60 See_Comment [Automat ed message] code = 370) The system [employer] generated this result transmitted ref erence range: <=5.90. The reference range was not used to int erpret this result as normal/abnormal . RECOMMENDED COUMADIN/WARFARIN INR THERAPY RANGESSTANDARD DOSE: 2.0 - 3.0 Includes: PROPHYLAXIS forvenous thrombosis, systemic embolization; TREATMENT for venous thrombosis and/or pulmonary embolus.HIGH RISK: Target INR is 2.5-3.5 for patients with mechanical heart valves.CBC (HEMOGRAM ONLY)2021-01-11 20:00:00 Test Item Value Reference Range Interpretation Comments WHITE BLOOD CELL COUNT (BEAKER) 43.5 K/ L 3.5-10.5 H (test code = 775) RED BLOOD CELL COUNT (BEAKER) 3.20 M/ L 4.63-6.08 L (test code = 761) HEMOGLOBIN (BEAKER) (test code = 8.9 GM/DL 13.7-17.5 L 410) HEMATOCRIT (BEAKER) (test code = 29.2 % 40.1-51.0 L 411) MEAN CORPUSCULAR VOLUME (BEAKER) 91.3 fL 79.0-92.2 (test code = 753) MEAN CORPUSCULAR HEMOGLOBIN 27.8 pg 25.7-32.2 (BEAKER) (test code = 751) MEAN CORPUSCULAR HEMOGLOBIN CONC 30.5 GM/DL 32.3-36.5 L (BEAKER) (test code = 752) RED CELL DISTRIBUTION WIDTH 15.6 % 11.6-14.4 H (BEAKER) (test code = 412) PLATELET COUNT (BEAKER) (test 143 K/CU MM 150-450 L code = 756) MEAN PLATELET VOLUME (BEAKER) 10.8 fL 9.4-12.4 (test code = 754) NUCLEATED RED BLOOD CELLS 0 /100 WBC 0-0 (BEAKER) (test code = 413) CBC W/PLT COUNT & AUTO [id number] 19:48:00 Test Item Value Reference Range Interpretation Comments WHITE BLOOD CELL COUNT (BEAKER) 39.9 K/ L 3.5-10.5 H (test code = 775) RED BLOOD CELL COUNT (BEAKER) 2.86 M/ L 4.63-6.08 L (test code = 761) HEMOGLOBIN (BEAKER) (test code = 8.1 GM/DL 13.7-17.5 L 410) HEMATOCRIT (BEAKER) (test code = 26.3 % 40.1-51.0 L 411) MEAN CORPUSCULAR VOLUME (BEAKER) 92.0 fL 79.0-92.2 (test code = 753) MEAN CORPUSCULAR HEMOGLOBIN 28.3 pg 25.7-32.2 (BEAKER) (test code = 751) MEAN CORPUSCULAR HEMOGLOBIN CONC 30.8 GM/DL 32.3-36.5 L (BEAKER) (test code = 752) RED CELL DISTRIBUTION WIDTH 15.3 % 11.6-14.4 H (BEAKER) (test code = 412) PLATELET COUNT (BEAKER) (test code 70 K/CU MM 150-450 L = 756) MEAN PLATELET VOLUME (BEAKER) 11.8 fL 9.4-12.4 (test code = 754) NUCLEATED RED BLOOD CELLS (BEAKER) 1 /100 WBC 0-0 H (test code = 413) POC ACTIVATED CLOTTING [id number] 18:26:00 Test Item Value Reference Range Interpretation Comments Activated Clotting Time 125 sec : 74 -137 seconds, (test code = 441) Baseline: TESTED AT [address], [address]: Stock Driver/Techni won ID = [id number] for CAST RO, JESSICA [facility] ACTIVATED CLOTTING [id number] 18:26:00 Test Item Value Reference Range Interpretation Comments Activated Clotting Time 125 sec : 74 -137 seconds, (test code = 441) Baseline: TESTED AT [address], [address]: Stock Driver/Techni won ID = [id number] for CAST RO, JESSICA [facility] ACTIVATED CLOTTING [id number] 18:26:00 Test Item Value Reference Range Interpretation Comments Activated Clotting Time 125 sec : 74 -137 seconds, (test code = 441) Baseline: TESTED AT [address], [address]: Stock Driver/Techni won ID = [id number] for CAST RO, JESSICA [id number] 18:26:00 Test Item Value Reference Range Interpretation Comments ACTIVATED CLOTTING TIME 125 sec : 74 -137 seconds, (BEAKER) (test code = Baseli ne: TESTED AT 441) [address], [address]: Stock Driver/Techni won ID = [id number] for CA STRO, JESSICA [id number] 18:25:00 Test Item Value Reference Range Interpretation Comments ACTIVATED CLOTTING TIME 120 sec : 74 -137 seconds, (BEAKER) (test code = Baseli ne: TESTED AT 441) [address], [facility] 30: Stock Driver/Techni won ID = [id number] for CA STRO, JESSICA [id number] 18:25:00 Test Item Value Reference Range Interpretation Comments ACTIVATED CLOTTING TIME 571 sec : 74 -137 seconds, (BEAKER) (test code = Baseli ne: TESTED AT 441) [address], [facility] 30: Stock Driver/Techni won ID = [id number] for CA STRO, JESSICA [id number] 18:25:00 Test Item Value Reference Range Interpretation Comments ACTIVATED CLOTTING TIME 687 sec : 74 -137 seconds, (BEAKER) (test code = Baseli ne: TESTED AT 441) [address], [address]: Stock Driver/Techni won ID = [id number] for CA STRO, JESSICA [id number] 18:25:00 Test Item Value Reference Range Interpretation Comments ACTIVATED CLOTTING TIME 543 sec : 74 -137 seconds, (BEAKER) (test code = Baseli ne: TESTED AT 441) [address], [facility] 30: Stock Driver/Techni won ID = [id number] for CA STRO, JESSICA [id number] 18:25:00 Test Item Value Reference Range Interpretation Comments ACTIVATED CLOTTING TIME 368 sec : 74 -137 seconds, (BEAKER) (test code = Baseli ne: TESTED AT 441) [address], [facility] 30: Stock Driver/Techni won ID = [id number] for CA STRO, JESSICA PLATELET [id number] 18:11:00 Test Item Value Reference Range Interpretation Comments PLATELET COUNT (BEAKER) (test code 70 K/CU MM 150-450 L = 756) Stock Driver ID - [id number] ID - [id number] ID - [id number] 17:51:00 Test Item Value Reference Range Interpretation Comments FIBRINOGEN LEVEL (BEAKER) (test 334 mg/dl 225-434 code = 658) [id number] 17:51:00 Test Item Value Reference Range Interpretation Comments PARTIAL THROMBOPLASTIN TIME 29.2 seconds 22.5-36.0 (BEAKER) (test code = 760) BLOOD GAS, [id number] 17:50:00 Test Item Value Reference Range Interpretation Comments PH ARTERIAL (BEAKER) (test code = 7.38 7.35-7.45 383) PCO2 ARTERIAL (BEAKER) (test code 35 mm Hg 35-45 = 384) PO2 ARTERIAL (BEAKER) (test code 269 mm Hg 80-90 H = 385) O2 SATURATION ARTERIAL (BEAKER) 99.6 % 96.0-97.0 H (test code = 386) HCO3 ARTERIAL (BEAKER) (test code 21 mmol/L 21-29 = 388) BASE EXCESS ARTERIAL (BEAKER) -4.8 mmol/L -2.0-3.0 L (test code = 387) PATIENT TEMPERATURE (BEAKER) 34.5 (test code = 1818) FIO2 (BEAKER) (test code = 1819) 60.0 GLUCOSE-STAT [id number] 17:50:00 Test Item Value Reference Range Interpretation Comments GLUCOSE RANDOM (BEAKER) (test code 165 mg/dL 70-110 H = 652) HGB/HCT (H&H) - STAT [id number] 17:50:00 Test Item Value Reference Range Interpretation Comments HEMOGLOBIN (BEAKER) (test code = 8.9 GM/DL 13.0-16.8 L 410) HEMATOCRIT (BEAKER) (test code = 26.0 % 40.0-50.0 L 411) CALCIUM, [id number] 17:50:00 Test Item Value Reference Range Interpretation Comments CALCIUM IONIZED (BEAKER) (test 1.16 mmol/L 1.12-1.27 code = 698) PH, BLOOD (BEAKER) (test code = 7.34 1810) PROTHROMBIN TIME/[id number] 17:50:00 Test Item Value Reference Range Interpretation Comments PROTIME (BEAKER) 21.8 seconds 11.9-14.2 H (test code = 759) INR (BEAKER) (test 1.93 See_Comment [Automat ed message] code = 370) The system Um[employer] generated this result transmitted ref erence range: <=5.90. The reference range was not used to int erpret this result as normal/abnormal . RECOMMENDED COUMADIN/WARFARIN INR THERAPY RANGESSTANDARD DOSE: 2.0 - 3.0 Includes: PROPHYLAXIS forvenous thrombosis, systemic embolization; TREATMENT for venous thrombosis and/or pulmonary embolus.HIGH RISK: Target INR is 2.5-3.5 for patients with mechanical heart valves.SODIUM NA-STAT [id number] 17:45:00 Test Item Value Reference Range Interpretation Comments SODIUM (BEAKER) (test code = 381) 137 meq/L 136-145 POTASSIUM-STAT [id number] 17:45:00 Test Item Value Reference Range Interpretation Comments POTASSIUM (BEAKER) (test code = 4.5 meq/L 3.6-5.5 379) SODIUM NA-STAT [id number] 17:24:00 Test Item Value Reference Range Interpretation Comments SODIUM (BEAKER) (test code = 381) 136 meq/L 136-145 POTASSIUM-STAT [id number] 17:24:00 Test Item Value Reference Range Interpretation Comments POTASSIUM (BEAKER) (test code = 4.3 meq/L 3.6-5.5 379) GLUCOSE-STAT [id number] 17:24:00 Test Item Value Reference Range Interpretation Comments GLUCOSE RANDOM (BEAKER) (test code 161 mg/dL 70-110 H = 652) HGB/HCT (H&H) - STAT [id number] 17:24:00 Test Item Value Reference Range Interpretation Comments HEMOGLOBIN (BEAKER) (test code = 8.7 GM/DL 13.0-16.8 L 410) HEMATOCRIT (BEAKER) (test code = 26.0 % 40.0-50.0 L 411) BLOOD GAS, [id number] 17:24:00 Test Item Value Reference Range Interpretation Comments PH ARTERIAL (BEAKER) (test code = 7.33 7.35-7.45 L 383) PCO2 ARTERIAL (BEAKER) (test code 40 mm Hg 35-45 = 384) PO2 ARTERIAL (BEAKER) (test code 260 mm Hg 80-90 H = 385) O2 SATURATION ARTERIAL (BEAKER) 99.6 % 96.0-97.0 H (test code = 386) HCO3 ARTERIAL (BEAKER) (test code 21 mmol/L 21-29 = 388) BASE EXCESS ARTERIAL (BEAKER) -4.7 mmol/L -2.0-3.0 L (test code = 387) PATIENT TEMPERATURE (BEAKER) 37.0 (test code = 1818) FIO2 (BEAKER) (test code = 1819) 21.0 CALCIUM, [id number] 17:22:00 Test Item Value Reference Range Interpretation Comments CALCIUM IONIZED (BEAKER) (test 1.34 mmol/L 1.12-1.27 H code = 698) PH, BLOOD (BEAKER) (test code = 7.33 1810) CALCIUM, [id number] 16:49:00 Test Item Value Reference Range Interpretation Comments CALCIUM IONIZED (BEAKER) (test 1.12 mmol/L 1.12-1.27 code = 698) PH, BLOOD (BEAKER) (test code = 7.46 1810) BLOOD GAS, [id number] 16:49:00 Test Item Value Reference Range Interpretation Comments PH ARTERIAL (BEAKER) (test code = 7.39 7.35-7.45 383) PCO2 ARTERIAL (BEAKER) (test code 37 mm Hg 35-45 = 384) PO2 ARTERIAL (BEAKER) (test code 284 mm Hg 80-90 H = 385) O2 SATURATION ARTERIAL (BEAKER) 99.7 % 96.0-97.0 H (test code = 386) HCO3 ARTERIAL (BEAKER) (test code 22 mmol/L 21-29 = 388) BASE EXCESS ARTERIAL (BEAKER) -3.1 mmol/L -2.0-3.0 L (test code = 387) PATIENT TEMPERATURE (BEAKER) 34.9 (test code = 1818) FIO2 (BEAKER) (test code = 1819) 97.0 GLUCOSE-STAT [id number] 16:49:00 Test Item Value Reference Range Interpretation Comments GLUCOSE RANDOM (BEAKER) (test code 152 mg/dL 70-110 H = 652) HGB/HCT (H&H) - STAT [id number] 16:49:00 Test Item Value Reference Range Interpretation Comments HEMOGLOBIN (BEAKER) (test code = 9.0 GM/DL 13.0-16.8 L 410) HEMATOCRIT (BEAKER) (test code = 26.0 % 40.0-50.0 L 411) SODIUM NA-STAT [id number] 16:48:00 Test Item Value Reference Range Interpretation Comments SODIUM (BEAKER) (test code = 381) 139 meq/L 136-145 POTASSIUM-STAT [id number] 16:48:00 Test Item Value Reference Range Interpretation Comments POTASSIUM (BEAKER) (test code = 5.0 meq/L 3.6-5.5 379) BLOOD GAS, [id number] 16:08:00 Test Item Value Reference Range Interpretation Comments PH ARTERIAL (BEAKER) (test code = 7.38 7.35-7.45 383) PCO2 ARTERIAL (BEAKER) (test code 40 mm Hg 35-45 = 384) PO2 ARTERIAL (BEAKER) (test code 282 mm Hg 80-90 H = 385) O2 SATURATION ARTERIAL (BEAKER) 99.6 % 96.0-97.0 H (test code = 386) HCO3 ARTERIAL (BEAKER) (test code 24 mmol/L 21-29 = 388) BASE EXCESS ARTERIAL (BEAKER) -2.1 mmol/L -2.0-3.0 L (test code = 387) PATIENT TEMPERATURE (BEAKER) 34.4 (test code = 1818) FIO2 (BEAKER) (test code = 1819) 70.0 POTASSIUM-STAT [id number] 16:08:00 Test Item Value Reference Range Interpretation Comments POTASSIUM (BEAKER) (test code = 5.8 meq/L 3.6-5.5 H 379) GLUCOSE-STAT [id number] 16:08:00 Test Item Value Reference Range Interpretation Comments GLUCOSE RANDOM (BEAKER) (test code 170 mg/dL 70-110 H = 652) HGB/HCT (H&H) - STAT [id number] 16:08:00 Test Item Value Reference Range Interpretation Comments HEMOGLOBIN (BEAKER) (test code = 9.0 GM/DL 13.0-16.8 L 410) HEMATOCRIT (BEAKER) (test code = 26.0 % 40.0-50.0 L 411) SODIUM NA-STAT [id number] 16:07:00 Test Item Value Reference Range Interpretation Comments SODIUM (BEAKER) (test code = 381) 135 meq/L 136-145 L BLOOD GAS, [id number] 15:42:00 Test Item Value Reference Range Interpretation Comments PH ARTERIAL (BEAKER) (test code = 7.43 7.35-7.45 383) PCO2 ARTERIAL (BEAKER) (test code 33 mm Hg 35-45 L = 384) PO2 ARTERIAL (BEAKER) (test code 335 mm Hg 80-90 H = 385) O2 SATURATION ARTERIAL (BEAKER) 99.8 % 96.0-97.0 H (test code = 386) HCO3 ARTERIAL (BEAKER) (test code 23 mmol/L 21-29 = 388) BASE EXCESS ARTERIAL (BEAKER) -2.6 mmol/L -2.0-3.0 L (test code = 387) PATIENT TEMPERATURE (BEAKER) 30.0 (test code = 1818) FIO2 (BEAKER) (test code = 1819) 70.0 GLUCOSE-STAT [id number] 15:42:00 Test Item Value Reference Range Interpretation Comments GLUCOSE RANDOM (BEAKER) (test code 153 mg/dL 70-110 H = 652) HGB/HCT (H&H) - STAT [id number] 15:42:00 Test Item Value Reference Range Interpretation Comments HEMOGLOBIN (BEAKER) (test code = 9.6 GM/DL 13.0-16.8 L 410) HEMATOCRIT (BEAKER) (test code = 28.0 % 40.0-50.0 L 411) SODIUM NA-STAT [id number] 15:40:00 Test Item Value Reference Range Interpretation Comments SODIUM (BEAKER) (test code = 381) 136 meq/L 136-145 POTASSIUM-STAT [id number] 15:40:00 Test Item Value Reference Range Interpretation Comments POTASSIUM (BEAKER) (test code = 5.1 meq/L 3.6-5.5 379) BLOOD GAS, [id number] 15:13:00 Test Item Value Reference Range Interpretation Comments PH ARTERIAL (BEAKER) (test code = 7.41 7.35-7.45 383) PCO2 ARTERIAL (BEAKER) (test code 36 mm Hg 35-45 = 384) PO2 ARTERIAL (BEAKER) (test code 346 mm Hg 80-90 H = 385) O2 SATURATION ARTERIAL (BEAKER) 99.8 % 96.0-97.0 H (test code = 386) HCO3 ARTERIAL (BEAKER) (test code 24 mmol/L 21-29 = 388) BASE EXCESS ARTERIAL (BEAKER) -2.1 mmol/L -2.0-3.0 L (test code = 387) PATIENT TEMPERATURE (BEAKER) 30.0 (test code = 1818) FIO2 (BEAKER) (test code = 1819) 70.0 GLUCOSE-STAT [id number] 15:13:00 Test Item Value Reference Range Interpretation Comments GLUCOSE RANDOM (BEAKER) (test code 139 mg/dL 70-110 H = 652) HGB/HCT (H&H) - STAT [id number] 15:13:00 Test Item Value Reference Range Interpretation Comments HEMOGLOBIN (BEAKER) (test code = 8.9 GM/DL 13.0-16.8 L 410) HEMATOCRIT (BEAKER) (test code = 26.0 % 40.0-50.0 L 411) SODIUM NA-STAT [id number] 15:11:00 Test Item Value Reference Range Interpretation Comments SODIUM (BEAKER) (test code = 381) 139 meq/L 136-145 POTASSIUM-STAT [id number] 15:11:00 Test Item Value Reference Range Interpretation Comments POTASSIUM (BEAKER) (test code = 4.9 meq/L 3.6-5.5 379) [id number] 14:31:03Glenn Peraza Jr., MD 01/11/2021 8:54 PMTEE Date: 01/11/2021 2:31 PM Sex: Male Location: ORRequesting Physician: Trey Galvez MD Examiner: Glenn Peraza Jr., MD Intubated Sedated Patient screened for esoph disease: Yes Insertion: easy Probe Type: multiplane Modalities:2D, CFM, CWD and PWD Inotrope: epinephrine/norepinephrine Aorta Size Dissection Plaque Thick PlaqueMobile Ascending Ao normal No < 3mm No Ao Arch normal No < 3mm No Descending Ao normal No <3mm No Valves Annulus Stenosis Area (cm3) Gradient Regurgitation Leaflet Morphology Leaflet Motion Not Visualized Aortic valve normal none none normal normal Mitral valve dilated none severe (4+)vegetation restricted Tricuspid normal none moderate (3+) normal normal Atria Size SEC ThrombusTumor Device Right Atrium normal No No No No Left Atrium No No No device Interatrial Septum: Morphology: normalASD: Shunt: Interventricular Septum: Morphology: Defect: Shunt: Ventricles Cavity sizeDimension Hypertrophy Thrombus Global FXN EF Right ventricle normal Yes No normal Left ventricle normal Yes normal 50-55% Pre Intervention Summary: Aorta: No aneurysm, no dissection, no mobile plaquesAV: trileaflet morphology, no aortic stenosis, trace aortic regurgitationLV: normal chamber size , mild- moderate LVH, normal systolic function (EF 50-55%), no RWMA, no thrombusMV: severe mitral regurgitation with 2cm posterior leaflet vegetation, no MS, No SAMRV: normal sized chamber, moderately reduced function (especially at apex), hypertrophic RV, D shaped intraventricular septum likely due to increased afterloadTV: normal morphology, moderate-servere tricuspid regurgitationRA: no thrombus No PFO by color dopper flow All findings communicated to surgical team. Post Intervention Summary:S/p mechanical mitral valve replacement and ERIC closure LV size and function unchanged, No RWMARV function improved, mildly reduced systolic functionMechanical MV well seated, no significant paravalvular leaks, mean gradient 3mmHgLAA appears closed with no flow, left upper pulmonary vein patent with good laminar flowAV structure and function unchangedTR improved, now mild-moderate TRNo pericardial effusion or aortic dissection All findings communicated to surgical team.[facility] 2021-01-11 14:31:03Glenn Peraza Jr., MD 01/11/2021 8:54 PMTEE Date: 01/11/2021 2:31 PM Sex: Male [place] Trey Galvez MD Examiner: Glenn Peraza Jr., MD Intubated Sedated Patient screened for esoph disease: Yes Insertion: easy Probe Type: multiplane Modalities:2D, CFM, CWD and PWD Inotrope: epinephrine/norepinephrine Aorta Size Dissection Plaque Thick PlaqueMobile Ascending Ao normal No < 3mm No Ao Arch normal No < 3mm No Descending Ao normal No <3mm No Valves Annulus Stenosis Area (cm3) Gradient Regurgitation Leaflet Morphology Leaflet Motion Not Visualized Aortic valve normal none none normal normal Mitral valve dilated none severe (4+)vegetation restricted Tricuspid normal none moderate (3+) normal normal Atria Size SEC ThrombusTumor Device Right Atrium normal No No No No Left Atrium No No No device Interatrial Septum: Morphology: normalASD: Shunt: Interventricular Septum: Morphology: Defect: Shunt: Ventricles Cavity sizeDimension Hypertrophy Thrombus Global FXN EF Right ventricle normal Yes No normal Left ventricle normal Yes normal 50-55% Pre Intervention Summary: Aorta: No aneurysm, no dissection, no mobile plaquesAV: trileaflet morphology, no aortic stenosis, trace aortic regurgitationLV: normal chamber size , mild- moderate LVH, normal systolic function (EF 50-55%), no RWMA, no thrombusMV: severe mitral regurgitation with 2cm posterior leaflet vegetation, no MS, No SAMRV: normal sized chamber, moderately reduced function (especially at apex), hypertrophic RV, D shaped intraventricular septum likely due to increased afterloadTV: normal morphology, moderate-servere tricuspid regurgitationRA: no thrombus No PFO by color dopper flow All findings communicated to surgical team. Post Intervention Summary:S/p mechanical mitral valve replacement and ERIC closure LV size and function unchanged, No RWMARV function improved, mildly reduced systolic functionMechanical MV well seated, no significant paravalvular leaks, mean gradient 3mmHgLAA appears closed with no flow, left upper pulmonary vein patent with good laminar flowAV structure and function unchangedTR improved, now mild-moderate TRNo pericardial effusion or aortic dissection All findings communicated to surgical team.[facility] 2021-01-11 14:31:03Glenn Peraza Jr., MD 01/11/2021 8:54 PMTEE Date: 01/11/2021 2:31 PM Sex: Male Location: [facility] Physician: Trey Galvez MD Examiner: Glenn Peraza Jr., MD Intubated Sedated Patient screened for esoph disease: Yes Insertion: easy Probe Type: multiplane Modalities:2D, CFM, CWD and PWD Inotrope: epinephrine/norepinephrine Aorta Size Dissection Plaque Thick PlaqueMobile Ascending Ao normal No < 3mm No Ao Arch normal No < 3mm No Descending Ao normal No <3mm No Valves Annulus Stenosis Area (cm3) Gradient Regurgitation Leaflet Morphology Leaflet Motion Not Visualized Aortic valve normal none none normal normal Mitral valve dilated none severe (4+)vegetation restricted Tricuspid normal none moderate (3+) normal normal Atria Size SEC ThrombusTumor Device Right Atrium normal No No No No Left Atrium No No No device Interatrial Septum: Morphology: normalASD: Shunt: Interventricular Septum: Morphology: Defect: Shunt: Ventricles Cavity sizeDimension Hypertrophy Thrombus Global FXN EF Right ventricle normal Yes No normal Left ventricle normal Yes normal 50-55% Pre Intervention Summary: Aorta: No aneurysm, no dissection, no mobile plaquesAV: trileaflet morphology, no aortic stenosis, trace aortic regurgitationLV: normal chamber size , mild- moderate LVH, normal systolic function (EF 50-55%), no RWMA, no thrombusMV: severe mitral regurgitation with 2cm posterior leaflet vegetation, no MS, No SAMRV: normal sized chamber, moderately reduced function (especially at apex), hypertrophic RV, D shaped intraventricular septum likely due to increased afterloadTV: normal morphology, moderate-servere tricuspid regurgitationRA: no thrombus No PFO by color dopper flow All findings communicated to surgical team. Post Intervention Summary:S/p mechanical mitral valve replacement and ERIC closure LV size and function unchanged, No RWMARV function improved, mildly reduced systolic functionMechanical MV well seated, no significant paravalvular leaks, mean gradient 3mmHgLAA appears closed with no flow, left upper pulmonary vein patent with good laminar flowAV structure and function unchangedTR improved, now mild-moderate TRNo pericardial effusion or aortic dissection All findings communicated to surgical team.[facility] [id number] 14:22:00 Test Item Value Reference Range Interpretation Comments GLUCOSE RANDOM (BEAKER) (test code 109 mg/dL 70-110 = 652) SODIUM NA-STAT [id number] 14:22:00 Test Item Value Reference Range Interpretation Comments SODIUM (BEAKER) (test code = 381) 138 meq/L 136-145 POTASSIUM-STAT [id number] 14:22:00 Test Item Value Reference Range Interpretation Comments POTASSIUM (BEAKER) (test code = 4.4 meq/L 3.6-5.5 379) BLOOD GAS, [id number] 14:22:00 Test Item Value Reference Range Interpretation Comments PH ARTERIAL (BEAKER) (test code = 7.32 7.35-7.45 L 383) PCO2 ARTERIAL (BEAKER) (test code 49 mm Hg 35-45 H = 384) PO2 ARTERIAL (BEAKER) (test code 182 mm Hg 80-90 H = 385) O2 SATURATION ARTERIAL (BEAKER) 99.1 % 96.0-97.0 H (test code = 386) HCO3 ARTERIAL (BEAKER) (test code 25 mmol/L 21-29 = 388) BASE EXCESS ARTERIAL (BEAKER) -1.8 mmol/L -2.0-3.0 (test code = 387) PATIENT TEMPERATURE (BEAKER) 36.9 (test code = 1818) FIO2 (BEAKER) (test code = 1819) 100.0 HGB/HCT (H&H) - STAT [id number] 14:22:00 Test Item Value Reference Range Interpretation Comments HEMOGLOBIN (BEAKER) (test code = 10.1 GM/DL 13.0-16.8 L 410) HEMATOCRIT (BEAKER) (test code = 30.0 % 40.0-50.0 L 411) POCT-GLUCOSE [id number] 12:53:00 Test Item Value Reference Range Interpretation Comments POC-GLUCOSE METER 121 mg/dL 70-110 H : TESTED A T [facility] 6720 (BEAKER) (test code [facility] = 1538) [address]: Stock Driver/Techni won ID = [id number] for Maikel robledo (contract), Syt damien RAD, CHEST, 1 VIEW, NON [id number] 10:43:00Reason for exam:->ettShould this be performed at the bedside?->Yes [facility]ame[facility] CROW [facility]UR : 1975 Sex: MFINAL REPORT RAD, CHEST, 1 VIEW, NON DEPT INDICATION: ett COMPARISON: Prior day's exam FINDINGS: Portable frontal view of the chest. IMPRESSION: Support Lines: Stable. Lungs and pleura: Stable patchy bilateral airspace disease. No pneumothorax.Heart and mediastinum: Stable contours. Additional findings: None. Signed: JR Tate Robert MDReport Verified Date/Time: 01/11/2021 10:43:44 Reading Location: [facility] Reading Room BASIC METABOLIC [id number] 10:11:00 Test Item Value Reference Range Interpretation Comments SODIUM (BEAKER) 141 meq/L 136-145 (test code = 381) POTASSIUM (BEAKER) 4.3 meq/L 3.5-5.1 (test code = 379) CHLORIDE (BEAKER) 104 meq/L 98-107 (test code = 382) CO2 (BEAKER) (test 24 meq/L 22-29 code = 355) BLOOD UREA NITROGEN 70 mg/dL 7-21 H (BEAKER) (test code = 354) CREATININE (BEAKER) 6.80 mg/dL 0.57-1.25 H (test code = 358) GLUCOSE RANDOM 112 mg/dL 70-105 H (BEAKER) (test code = 652) CALCIUM (BEAKER) 9.1 mg/dL 8.4-10.2 (test code = 697) EGFR (BEAKER) (test 11 mL/min/1.73 ESTIMA ARI GFR IS code = 1092) sq m NOT ACCURATE CREATININE CLEARANCE IN PREDICTING GLOMERULAR FILTRATION RATE . ESTIMATED GFR I S NOT APPLICABLE FOR DIALYSIS PATIEN TS. Stock Driver ID - VIRGILIO [id number] 10:10:00 Test Item Value Reference Range Interpretation Comments MAGNESIUM (BEAKER) (test code = 2.3 mg/dL 1.6-2.6 627) Stock Driver ID - VIRGILIO [id number] 10:10:00 Test Item Value Reference Range Interpretation Comments PHOSPHORUS (BEAKER) (test code = 6.2 mg/dL 2.3-4.7 H 604) Stock Driver ID - VIRGILIO MBLOOD GAS, [id number] 09:38:00 Test Item Value Reference Range Interpretation Comments PH ARTERIAL (BEAKER) (test code = 7.45 7.35-7.45 383) PCO2 ARTERIAL (BEAKER) (test code 37 mm Hg 35-45 = 384) PO2 ARTERIAL (BEAKER) (test code = 99 mm Hg 80-90 H 385) O2 SATURATION ARTERIAL (BEAKER) 97.9 % 96.0-97.0 H (test code = 386) HCO3 ARTERIAL (BEAKER) (test code 25 mmol/L 21-29 = 388) BASE EXCESS ARTERIAL (BEAKER) 1.1 mmol/L -2.0-3.0 (test code = 387) PATIENT TEMPERATURE (BEAKER) (test 36.2 code = 1818) FIO2 (BEAKER) (test code = 1819) 40.0 CALCIUM, [id number] 09:34:00 Test Item Value Reference Range Interpretation Comments CALCIUM IONIZED (BEAKER) (test 1.19 mmol/L 1.12-1.27 code = 698) PH, BLOOD (BEAKER) (test code = 7.44 1810) POCT-GLUCOSE [id number] 06:58:00 Test Item Value Reference Range Interpretation Comments POC-GLUCOSE METER 108 mg/dL 70-110 : TESTED A T [facility] 6720 (BEAKER) (test code = NORM [facility], 1538) [address]: Stock Driver/Techni won ID = [id number] for September COMPREHENSIVE METABOLIC [id number] 06:13:00 Test Item Value Reference Range Interpretation Comments TOTAL PROTEIN 5.4 gm/dL 6.0-8.3 L (BEAKER) (test code = 770) ALBUMIN (BEAKER) 2.4 g/dL 3.5-5.0 L (test code = 1145) ALKALINE PHOSPHATASE 89 U/L 40-150 (BEAKER) (test code = 346) BILIRUBIN TOTAL 0.9 mg/dL 0.2-1.2 (BEAKER) (test code = 377) SODIUM (BEAKER) (test 141 meq/L 136-145 code = 381) POTASSIUM (BEAKER) 4.2 meq/L 3.5-5.1 (test code = 379) CHLORIDE (BEAKER) 107 meq/L 98-107 (test code = 382) CO2 (BEAKER) (test 20 meq/L 22-29 L code = 355) BLOOD UREA NITROGEN 81 mg/dL 7-21 H (BEAKER) (test code = 354) CREATININE (BEAKER) 8.01 mg/dL 0.57-1.25 H (test code = 358) GLUCOSE RANDOM 116 mg/dL 70-105 H (BEAKER) (test code = 652) CALCIUM (BEAKER) 8.5 mg/dL 8.4-10.2 (test code = 697) AST (SGOT) (BEAKER) 71 U/L 5-34 H (test code = 353) ALT (SGPT) (BEAKER) 63 U/L 6-55 H (test code = 347) EGFR (BEAKER) (test 9 mL/min/1.73 ESTIMAT ED GFR IS code = 1092) sq m NOT ACCURATE CREATININE CLEARANCE IN PREDICTING GLOMERULAR FILTRATION RATE . ESTIMATED GFR I S NOT APPLICABLE FOR DIALYSIS PATIEN TS. Stock Driver ID - LINA LOperator ID - LINA LCBC W/PLT COUNT & AUTO [id number] 06:08:00 Test Item Value Reference Range Interpretation Comments WHITE BLOOD CELL COUNT (BEAKER) 18.8 K/ L 3.5-10.5 H (test code = 775) RED BLOOD CELL COUNT (BEAKER) 3.29 M/ L 4.63-6.08 L (test code = 761) HEMOGLOBIN (BEAKER) (test code = 9.0 GM/DL 13.7-17.5 L 410) HEMATOCRIT (BEAKER) (test code = 29.0 % 40.1-51.0 L 411) MEAN CORPUSCULAR VOLUME (BEAKER) 88.1 fL 79.0-92.2 (test code = 753) MEAN CORPUSCULAR HEMOGLOBIN 27.4 pg 25.7-32.2 (BEAKER) (test code = 751) MEAN CORPUSCULAR HEMOGLOBIN CONC 31.0 GM/DL 32.3-36.5 L (BEAKER) (test code = 752) RED CELL DISTRIBUTION WIDTH 15.3 % 11.6-14.4 H (BEAKER) (test code = 412) PLATELET COUNT (BEAKER) (test 103 K/CU MM 150-450 L code = 756) MEAN PLATELET VOLUME (BEAKER) 11.6 fL 9.4-12.4 (test code = 754) NUCLEATED RED BLOOD CELLS 0 /100 WBC 0-0 (BEAKER) (test code = 413) (CELLAVISION MANUAL DIFF)2021-01-11 06:08:00 Test Item Value Reference Range Interpretation Comments NEUTROPHILS - REL 84 % (CELLAVISION)(BEAKER) (test code = 2816) LYMPHOCYTES - REL 10 % (CELLAVISION)(BEAKER) (test code = 2817) MONOCYTES - REL 2 % (CELLAVISION)(BEAKER) (test code = 2818) METAMYELOCYTES - REL 1 % 0-0 H (CELLAVISION)(BEAKER) (test code = 2821) MYELOCYTES - REL 2 % 0-0 H (CELLAVISION)(BEAKER) (test code = 2822) BANDS - REL (CELLAVISION)(BEAKER) 1 % 0-10 (test code = 2826) NEUTROPHILS - ABS 15.79 K/ul 1.78-5.38 H (CELLAVISION)(BEAKER) (test code = 2830) LYMPHOCYTES - ABS 1.88 K/ul 1.32-3.57 (CELLAVISION)(BEAKER) (test code = 2831) MONOCYTES - ABS 0.38 K/uL 0.30-0.82 (CELLAVISION)(BEAKER) (test code = 2832) METAMYELOCYTES - ABS 0.19 K/uL 0.00-0.00 H (CELLAVISION)(BEAKER) (test code = 2836) MYELOCYTES-ABS 0.38 K/uL 0.00-0.00 H (CELLAVISION)(BEAKER) (test code = 2837) BANDS - ABS (CELLAVISION)(BEAKER) 0.19 K/uL 0.00-0.80 (test code = 2840) TOTAL COUNTED (BEAKER) (test code 100 = 1351) MANUAL NRBC PER 100 CELLS 1 /100 WBC 0-0 H (BEAKER) (test code = 1353) WBC MORPHOLOGY (BEAKER) (test Normal code = 487) PLT MORPHOLOGY (BEAKER) (test Normal code = 486) HYPOCHROMIA (BEAKER) (test code = 2+ moderate 963) ANISOCYTOSIS (BEAKER) (test code 1+ few = 961) MACROCYTES (BEAKER) (test code = 1+ few 964) POIKILOCYTES (BEAKER) (test code 2+ moderate = 966) SCHISTOCYTES (BEAKER) (test code 1+ few = 765) OVALOCYTES (BEAKER) (test code = 2+ moderate 477) TEAR DROP CELLS (BEAKER) (test 1+ few code = 481) CHIKIS CELLS (BEAKER) (test code = 1+ few 474) ARTIFACT (CELLAVISION)(BEAKER) Present (test code = 3432) HELMET CELLS 1+ few (CELLAVISION)(BEAKER) (test code = 3434) PLATELET CONCENTRATION Decreased (CELLAVISION)(BEAKER) (test code = 3438) Stock Driver ID - Zaira Simons comments: Slide comments:MAGNESIUM 2021-01-11 04:57:00 Test Item Value Reference Range Interpretation Comments MAGNESIUM (BEAKER) (test code = 2.3 mg/dL 1.6-2.6 627) Stock Driver ID - LINA [id number] 04:57:00 Test Item Value Reference Range Interpretation Comments PHOSPHORUS (BEAKER) (test code = 6.4 mg/dL 2.3-4.7 H 604) Stock Driver ID - LINA LCALCIUM, [id number] 04:43:00 Test Item Value Reference Range Interpretation Comments CALCIUM IONIZED (BEAKER) (test 1.13 mmol/L 1.12-1.27 code = 698) PH, BLOOD (BEAKER) (test code = 7.51 1810) BLOOD GAS, [id number] 04:42:00 Test Item Value Reference Range Interpretation Comments PH ARTERIAL (BEAKER) (test code = 7.51 7.35-7.45 H 383) PCO2 ARTERIAL (BEAKER) (test code 30 mm Hg 35-45 L = 384) PO2 ARTERIAL (BEAKER) (test code = 98 mm Hg 80-90 H 385) O2 SATURATION ARTERIAL (BEAKER) 98.1 % 96.0-97.0 H (test code = 386) HCO3 ARTERIAL (BEAKER) (test code 24 mmol/L 21-29 = 388) BASE EXCESS ARTERIAL (BEAKER) 1.2 mmol/L -2.0-3.0 (test code = 387) PATIENT TEMPERATURE (BEAKER) (test 36.8 code = 1818) FIO2 (BEAKER) (test code = 1819) 40.0 SARS-COV2/RT-PCR ([facility])2021-01-11 02:44:00 Test Item Value Reference Range Interpretation Comments SARS-COV2/RT-PCR Negative Negative The SARS-Co V-2 target (test code = 1522664) nuclei c acids are not detected in thi s specimen. The presence of SARS-CoV-2/FLU/RSV viral nucleic acids cannot rule out co- infections or disease caused by other viral or bacterial pathogens. As with any molecular test, mutations within the target regions of the Xpert Xpress SARS-CoV-2/Flu/RSV test could affect primer and/or probe binding resulting in failure to detect the presence of virus or the virus being detected less predictably. False negative results may occur if the virus is present at levels below the analytical limit of detection in this specimen.This Xpert Xpress SARS-CoV-2/Flu/RSV test is a rapid, real-time RT-PCR test intended for the qualitative detection of nucleic acid from Xpert Xpress SARS-CoV-2/Flu/RSV in a nasopharyngeal swab specimen collected from individuals suspected of Xpert Xpress SARS-CoV-2/Flu/RSV by their healthcare provider. Results from [facility] Xpert Xpress SARS-CoV-2/Flu/RSV test should be correlated with the clinical history, epidemiological data, and other data available to the clinician evaluating the patient. Viral nucleic acid may persist in vivo, independent of virus viability. Detection of analyte target(s) does not imply that the corresponding virus(es) are infectious or are the causative agents for clinical symptoms.This test has not been Food and Drug Administration (FDA) cleared or approved and has been authorized by FDA under an Emergency Use Authorization (EUA). This EUA will be effective until the declaration that circumstances exist justifying the authorization of the emergency use of in vitro diagnostic tests for detection and/or diagnosis of COVID-19 is terminated under Section 564(b)(2) of the Act or the EUA is revoked under Section 564(g) of the Act.Fact Sheet for Healthcare Providers :https://www.[employer]/Documents/Xpert%20Xpress%20SARS%20CoV-2/Fact%20Sheets/3 02-3902%29RGOX-DDX-5%20HEALTHCARE%20PROVIDERS%20FACT%20SHEET.pdfFact Sheet for Healthcare Patients:https://www.[employer] /Documents/Xpert%20Xpress%20SARS%20Cov-2/Fact%20Sheets/302-3801%73BYEV-AKV-4%20P ATIENT%20FACT%20SHEET.pdfPOCT-GLUCOSE [id number] 00:19:00 Test Item Value Reference Range Interpretation Comments POC-GLUCOSE METER 88 mg/dL 70-110 : TESTED A T [facility] 6720 (BEAKER) (test code = NORM [place], 1538) [address]: Stock Driver/Techni won ID = [id number] for Manuelito Busby [id number] 00:01:00 Test Item Value Reference Range Interpretation Comments PHOSPHORUS (BEAKER) (test code = 9.7 mg/dL 2.3-4.7 HH 604) Stock Driver ID - BSBASIC METABOLIC [id number] 00:00:00 Test Item Value Reference Range Interpretation Comments SODIUM (BEAKER) 142 meq/L 136-145 (test code = 381) POTASSIUM (BEAKER) 4.8 meq/L 3.5-5.1 (test code = 379) CHLORIDE (BEAKER) 105 meq/L 98-107 (test code = 382) CO2 (BEAKER) (test 19 meq/L 22-29 L code = 355) BLOOD UREA NITROGEN 107 mg/dL 7-21 H (BEAKER) (test code = 354) CREATININE (BEAKER) 10.93 mg/dL 0.57-1.25 H (test code = 358) GLUCOSE RANDOM 111 mg/dL 70-105 H (BEAKER) (test code = 652) CALCIUM (BEAKER) 8.9 mg/dL 8.4-10.2 (test code = 697) EGFR (BEAKER) (test 6 mL/min/1.73 ESTIMAT ED GFR IS code = 1092) sq m NOT ACCURATE CREATININE CLEARANCE IN PREDICTING GLOMERULAR FILTRATION RATE . ESTIMATED GFR I S NOT APPLICABLE FOR DIALYSIS PATIEN TS. Stock Driver ID - [id number] 23:57:00 Test Item Value Reference Range Interpretation Comments MAGNESIUM (BEAKER) (test code = 2.8 mg/dL 1.6-2.6 H 627) Stock Driver ID - BSCALCIUM, [id number] 23:42:00 Test Item Value Reference Range Interpretation Comments CALCIUM IONIZED (BEAKER) (test 1.10 mmol/L 1.12-1.27 L code = 698) PH, BLOOD (BEAKER) (test code = 7.43 1810) 2D Echo W/Doppler(CW/PW/Color)2021-01-10 18:38:44Ejection FractionSLEH ECHO HEARTLAB MKCKESSON CPACSInterface, External Ris In - 01/10/2021 6:39 PM C DTTransthoracic Echocardiography Report (TTE) Demographics Patient Name CROW KAUR Date of Study 01/10/2021 SR. Gender Male Visit Number [id number] Race Unknown Room Number C826 Number Date of 1975 Referring Physician Taye Villatoro NP Age 45 year(s) Loom Tuner Estela Mann [facility] Disabilities Caregiver Radha Spence [facility] Interpreting Shama Duran MD Physician Procedure Type of Study TTE procedure:2DECHO W DOPPLER(CW/PW/COLOR) (Routine) Indications:Respiratory failure or hypoxemia .Clinical HistoryESRD, HTN, Mitral endocarditis, diastolic CHFHeight: 74 inches Weight: 83.01 kg (183 lbs) BSA: 2.09 m^2 BMI: 23.5 kg/m^2HR: 130 bpm BP: 103/77 mmHg Summary 1. The left ventricle is chamber size (by vol index) is normal (male - LVED vol - 34-74ml/m2). LV septal thickness is normal (0.6-1.1cm). LV posterior wall thickness is mildly increased (1.2-1.4cm) . All of the LV segments contract normally . Global LV systolic function normal . LVEF by Simps on's method of disk assessment is normal (60%) . 2. RV chamber size is moderately enlarged . GlobalRV systolic function is depressed. 3. LA size is severely enlarged (>48 ml/m2) . RA cavity size is mildly enlarged . IV saline contrast injection was negative for a PFO (patent foramen ovale) at rest and post Valsalva . 4. Endocardidits of the mitral valve. There is a large ehogenic mass attachedto the posterior mitral valve leaflet. The mass measures 2.0 cm x 2.1 cm. Severe mitral regurgitation noted with systolic flow reversal in the pulmonary veins. 5. Dilation of the tricuspid annulus noted. Tricuspid valve leaflets appear normal. There is moderate to severe tricuspid regurgitation. Estimated peak systolic PA pressure is > 90 mmHg assuming RAP > 20 mm Hg. 6. Previous Study No prior studies available for comparison. Primary team aware of findings. Signature Findings Technical Quality: Technically adequate exam. Left Ventricle The left ventricle is chamber size (by vol index) is normal (male - LVED vol - 34-74ml/m2). LV septal thickness is normal (0.6-1.1cm). LV posterior wall thickness is mildly increased (1.2-1.4cm) . All of the LV segments contract normally . Global LV systolic function normal . LVEF by Suresh's method of disk assessment is normal (60%) . Degree of diastolic dysfunction (LAP assessment) is inconclusive due to significant MR . Left Atrium LA size is severely enlarged (>48 ml/m2) . Right Ventricle RV chamber size is moderately enlarged . Global RV systolic function is depressed. Right Atrium RA cavity size is mildly enlarged . Atrial Septum IV saline contrast injection was negative for a PFO (patent foramen ovale) at rest and post Valsalva . Aortic Valve Normal AoV structure. Mild aortic regurgitation. Mitral Valve Endocardidits of the mitral valve. There is a large ehogenic mass attached to the posterior mitral valve leaflet. The mass measures 2.0 cm x 2.1 cm. Severe mitral regurgitation noted with systolic flow reversal in the pulmonary veins. Tricuspid Valve Dilation of the tricuspid annulus noted. Tricuspid valve leaflets appear normal. There is moderate to severe tricuspid regurgitation. Estimated peak systolic PA pressure is > 90mmHg assuming RAP > 20 mm Hg. Pulmonic Valve Normal PV structure and function. Aorta Aortic root size (SInus of Valsalva diameter) is normal . Pericardium A trace pericardial effusion is present with fluid around the right atrium. IVC/SVC/PA/PV/Pleural The inferior vena cava size is severely dilated . Systolic flow reversal noted in the hepatic vein. The estimated RA pressure by IVC dynamics is > 20mmHg . Chambers/Str uctures Left Atrium LA Volume: 208.23 ml LA Area: 32.9 cm^2 LA Vol. Index: 100ml/m^2 Left Ventricle LVIDd: 6.09 cm LVEDV:186.01 ml LV Septum Diastolic: 1.16 cm LV PW Diastolic: 1.26 cm LVEDV Suresh's:101.33 ml LVESV Suresh's:40.15 ml LVEF Suresh's: 60.4 % LVEDVI: 48 ml/m^2 LVESVI: 19 ml/m^2 LVOT Diameter: 1.86 cm Right Atrium RA Area: 29.39 cm^2 RightVentricle RV Diast Dim.: 4.8 cm RV Systolic Pressure: 92.37 mmHg RVOT VTI: 11.42 cm Aorta Ao Root S of Arlen.: 3.31 cm Ascending Aorta: 3.12 cm Doppler/Quantitative Measurements Aortic Valve Peak Velocity: 1.57 m/s Mean Velocity: 1.21 m/s Peak Gradient: 9.82 mmHg Mean Gradient: 6.21 mmHg AV Area (continuity): 2.09 cm^2 AV VTI: 21.19 cm AV DVI: 0.77 LVOT Peak Velocity: 1.17 m/s Peak Gradient: 5.46 mmHg Mean Velocity: 0.87 m/s Mean Gradient: 3.39 mmHg LVOT Diameter: 1.86 cm LVOT VTI: 16.27 cm LVOT Area: 2.72 cm^2 LVOT SV:44.19 ml LVOT CO: 5.74 l/min LVOTCI: 2.75 l/min/m^2 Tricuspid Valve Estimated RAP: 20 mmHg TR Velocity: 4.25 m/s TR Gradient: 72.37 mmHg Pulmonic Valve Estimated PASP: 92.37 [facility]Sub[facility] Center2[facility] W/Doppler(CW/PW/Color)2021-01-10 18:38:44Ejection FractionSLEH ECHO HEARTLAB MKCKESSON CPACSInterface, External Ris In - 01/10/2021 6:39 PM C DTTransthoracic Echocardiography Report (TTE) Demographics Patient Name CROW KAUR Date of Study 01/10/2021 SR. Gender Male Visit Number [id number] Race Unknown Room Number C826 Number Date of 1975 Referring Physician Taye Villatoro NP Age 45 year(s) Loom Tuner Estela Mann [facility] Disabilities Caregiver Radha Spence CS Interpreting Shama Duran MD Physician Procedure Type of Study TTE procedure:2DECHO W DOPPLER(CW/PW/COLOR) (Routine) Indications:Respiratory failure or hypoxemia .Clinical HistoryESRD, HTN, Mitral endocarditis, diastolic CHFHeight: 74 inches Weight: 83.01 kg (183 lbs) BSA: 2.09 m^2 BMI: 23.5 kg/m^2HR: 130 bpm BP: 103/77 mmHg Summary 1. The left ventricle is chamber size (by vol index) is normal (male - LVED vol - 34-74ml/m2). LV septal thickness is normal (0.6-1.1cm). LV posterior wall thickness is mildly increased (1.2-1.4cm) . All of the LV segments contract normally . Global LV systolic function normal . LVEF by Simps on's method of disk assessment is normal (60%) . 2. RV chamber size is moderately enlarged . GlobalRV systolic function is depressed. 3. LA size is severely enlarged (>48 ml/m2) . RA cavity size is mildly enlarged . IV saline contrast injection was negative for a PFO (patent foramen ovale) at rest and post Valsalva . 4. Endocardidits of the mitral valve. There is a large ehogenic mass attachedto the posterior mitral valve leaflet. The mass measures 2.0 cm x 2.1 cm. Severe mitral regurgitation noted with systolic flow reversal in the pulmonary veins. 5. Dilation of the tricuspid annulus noted. Tricuspid valve leaflets appear normal. There is moderate to severe tricuspid regurgitation. Estimated peak systolic PA pressure is > 90 mmHg assuming RAP > 20 mm Hg. 6. Previous Study No prior studies available for comparison. Primary team aware of findings. Signature Findings Technical Quality: Technically adequate exam. Left Ventricle The left ventricle is chamber size (by vol index) is normal (male - LVED vol - 34-74ml/m2). LV septal thickness is normal (0.6-1.1cm). LV posterior wall thickness is mildly increased (1.2-1.4cm) . All of the LV segments contract normally . Global LV systolic function normal . LVEF by Suresh's method of disk assessment is normal (60%) . Degree of diastolic dysfunction (LAP assessment) is inconclusive due to significant MR . Left Atrium LA size is severely enlarged (>48 ml/m2) . Right Ventricle RV chamber size is moderately enlarged . Global RV systolic function is depressed. Right Atrium RA cavity size is mildly enlarged . Atrial Septum IV saline contrast injection was negative for a PFO (patent foramen ovale) at rest and post Valsalva . Aortic Valve Normal AoV structure. Mild aortic regurgitation. Mitral Valve Endocardidits of the mitral valve. There is a large ehogenic mass attached to the posterior mitral valve leaflet. The mass measures 2.0 cm x 2.1 cm. Severe mitral regurgitation noted with systolic flow reversal in the pulmonary veins. Tricuspid Valve Dilation of the tricuspid annulus noted. Tricuspid valve leaflets appear normal. There is moderate to severe tricuspid regurgitation. Estimated peak systolic PA pressure is > 90mmHg assuming RAP > 20 mm Hg. Pulmonic Valve Normal PV structure and function. Aorta Aortic root size (SInus of Valsalva diameter) is normal . Pericardium A trace pericardial effusion is present with fluid around the right atrium. IVC/SVC/PA/PV/Pleural The inferior vena cava size is severely dilated . Systolic flow reversal noted in the hepatic vein. The estimated RA pressure by IVC dynamics is > 20mmHg . Chambers/Str uctures Left Atrium LA Volume: 208.23 ml LA Area: 32.9 cm^2 LA Vol. Index: 100ml/m^2 Left Ventricle LVIDd: 6.09 cm LVEDV:186.01 ml LV Septum Diastolic: 1.16 cm LV PW Diastolic: 1.26 cm LVEDV Suresh's:101.33 ml LVESV Suresh's:40.15 ml LVEF Suresh's: 60.4 % LVEDVI: 48 ml/m^2 LVESVI: 19 ml/m^2 LVOT Diameter: 1.86 cm Right Atrium RA Area: 29.39 cm^2 RightVentricle RV Diast Dim.: 4.8 cm RV Systolic Pressure: 92.37 mmHg RVOT VTI: 11.42 cm Aorta Ao Root S of Arlen.: 3.31 cm Ascending Aorta: 3.12 cm Doppler/Quantitative Measurements Aortic Valve Peak Velocity: 1.57 m/s Mean Velocity: 1.21 m/s Peak Gradient: 9.82 mmHg Mean Gradient: 6.21 mmHg AV Area (continuity): 2.09 cm^2 AV VTI: 21.19 cm AV DVI: 0.77 LVOT Peak Velocity: 1.17 m/s Peak Gradient: 5.46 mmHg Mean Velocity: 0.87 m/s Mean Gradient: 3.39 mmHg LVOT Diameter: 1.86 cm LVOT VTI: 16.27 cm LVOT Area: 2.72 cm^2 LVOT SV:44.19 ml LVOT CO: 5.74 l/min LVOTCI: 2.75 l/min/m^2 Tricuspid Valve Estimated RAP: 20 mmHg TR Velocity: 4.25 m/s TR Gradient: 72.37 mmHg Pulmonic Valve Estimated PASP: 92.37 mmHgCH[facility] W/Doppler(CW/PW/Color)2021-01-10 18:38:44Ejection FractionSLEH ECHO HEARTLAB ANGEL CPACSInterface, External Ris In - 01/10/2021 6:39 PM C DTTransthoracic Echocardiography Report (TTE) Demographics Patient Name CROW KAUR Date of Study 01/10/2021 SR. Gender Male Visit Number [id number] Race Unknown Room Number C826 Number Date of 1975 Referring Physician Taye Villatoro NP Age 45 year(s) Loom Tuner Estela Mann [facility] Disabilities Caregiver Radha Spence [facility] Interpreting Shama Duran MD Physician Procedure Type of Study TTE procedure:2DECHO W DOPPLER(CW/PW/COLOR) (Routine) Indications:Respiratory failure or hypoxemia .Clinical HistoryESRD, HTN, Mitral endocarditis, diastolic CHFHeight: 74 inches Weight: 83.01 kg (183 lbs) BSA: 2.09 m^2 BMI: 23.5 kg/m^2HR: 130 bpm BP: 103/77 mmHg Summary 1. The left ventricle is chamber size (by vol index) is normal (male - LVED vol - 34-74ml/m2). LV septal thickness is normal (0.6-1.1cm). LV posterior wall thickness is mildly increased (1.2-1.4cm) . All of the LV segments contract normally . Global LV systolic function normal . LVEF by Simps on's method of disk assessment is normal (60%) . 2. RV chamber size is moderately enlarged . GlobalRV systolic function is depressed. 3. LA size is severely enlarged (>48 ml/m2) . RA cavity size is mildly enlarged . IV saline contrast injection was negative for a PFO (patent foramen ovale) at rest and post Valsalva . 4. Endocardidits of the mitral valve. There is a large ehogenic mass attachedto the posterior mitral valve leaflet. The mass measures 2.0 cm x 2.1 cm. Severe mitral regurgitation noted with systolic flow reversal in the pulmonary veins. 5. Dilation of the tricuspid annulus noted. Tricuspid valve leaflets appear normal. There is moderate to severe tricuspid regurgitation. Estimated peak systolic PA pressure is > 90 mmHg assuming RAP > 20 mm Hg. 6. Previous Study No prior studies available for comparison. Primary team aware of findings. Signature Findings Technical Quality: Technically adequate exam. Left Ventricle The left ventricle is chamber size (by vol index) is normal (male - LVED vol - 34-74ml/m2). LV septal thickness is normal (0.6-1.1cm). LV posterior wall thickness is mildly increased (1.2-1.4cm) . All of the LV segments contract normally . Global LV systolic function normal . LVEF by Suresh's method of disk assessment is normal (60%) . Degree of diastolic dysfunction (LAP assessment) is inconclusive due to significant MR . Left Atrium LA size is severely enlarged (>48 ml/m2) . Right Ventricle RV chamber size is moderately enlarged . Global RV systolic function is depressed. Right Atrium RA cavity size is mildly enlarged . Atrial Septum IV saline contrast injection was negative for a PFO (patent foramen ovale) at rest and post Valsalva . Aortic Valve Normal AoV structure. Mild aortic regurgitation. Mitral Valve Endocardidits of the mitral valve. There is a large ehogenic mass attached to the posterior mitral valve leaflet. The mass measures 2.0 cm x 2.1 cm. Severe mitral regurgitation noted with systolic flow reversal in the pulmonary veins. Tricuspid Valve Dilation of the tricuspid annulus noted. Tricuspid valve leaflets appear normal. There is moderate to severe tricuspid regurgitation. Estimated peak systolic PA pressure is > 90mmHg assuming RAP > 20 mm Hg. Pulmonic Valve Normal PV structure and function. Aorta Aortic root size (SInus of Valsalva diameter) is normal . Pericardium A trace pericardial effusion is present with fluid around the right atrium. IVC/SVC/PA/PV/Pleural The inferior vena cava size is severely dilated . Systolic flow reversal noted in the hepatic vein. The estimated RA pressure by IVC dynamics is > 20mmHg . Chambers/Str uctures Left Atrium LA Volume: 208.23 ml LA Area: 32.9 cm^2 LA Vol. Index: 100ml/m^2 Left Ventricle LVIDd: 6.09 cm LVEDV:186.01 ml LV Septum Diastolic: 1.16 cm LV PW Diastolic: 1.26 cm LVEDV Suresh's:101.33 ml LVESV Suresh's:40.15 ml LVEF Suresh's: 60.4 % LVEDVI: 48 ml/m^2 LVESVI: 19 ml/m^2 LVOT Diameter: 1.86 cm Right Atrium RA Area: 29.39 cm^2 RightVentricle RV Diast Dim.: 4.8 cm RV Systolic Pressure: 92.37 mmHg RVOT VTI: 11.42 cm Aorta Ao Root S of Arlen.: 3.31 cm Ascending Aorta: 3.12 cm Doppler/Quantitative Measurements Aortic Valve Peak Velocity: 1.57 m/s Mean Velocity: 1.21 m/s Peak Gradient: 9.82 mmHg Mean Gradient: 6.21 mmHg AV Area (continuity): 2.09 cm^2 AV VTI: 21.19 cm AV DVI: 0.77 LVOT Peak Velocity: 1.17 m/s Peak Gradient: 5.46 mmHg Mean Velocity: 0.87 m/s Mean Gradient: 3.39 mmHg LVOT Diameter: 1.86 cm LVOT VTI: 16.27 cm LVOT Area: 2.72 cm^2 LVOT SV:44.19 ml LVOT CO: 5.74 l/min LVOTCI: 2.75 l/min/m^2 Tricuspid Valve Estimated RAP: 20 mmHg TR Velocity: 4.25 m/s TR Gradient: 72.37 mmHg Pulmonic Valve Estimated PASP: 92.37 mmHgCHI [facility] Health [id number] 17:13:00 Test Item Value Reference Range Interpretation Comments FIBRINOGEN LEVEL (DEISIAKER) (test 417 mg/dl 225-434 code = 658) [id number] 17:13:00 Test Item Value Reference Range Interpretation Comments PARTIAL THROMBOPLASTIN TIME 29.6 seconds 22.5-36.0 (BEAKER) (test code = 760) (CELLAVISION MANUAL DIFF)2021-01-10 17:13:00 Test Item Value Reference Range Interpretation Comments NEUTROPHILS - REL 81 % (CELLAVISION)(BEAKER) (test code = 2816) LYMPHOCYTES - REL 5 % (CELLAVISION)(BEAKER) (test code = 2817) MONOCYTES - REL 10 % (CELLAVISION)(BEAKER) (test code = 2818) METAMYELOCYTES - REL 2 % 0-0 H (CELLAVISION)(BEAKER) (test code = 2821) MYELOCYTES - REL 1 % 0-0 H (CELLAVISION)(BEAKER) (test code = 2822) PROMYELOCYTES - REL 1 % 0-0 H (CELLAVSION)(BEAKER) (test code = 2825) BANDS - REL (CELLAVISION)(BEAKER) 1 % 0-10 (test code = 2826) NEUTROPHILS - ABS 14.66 K/ul 1.78-5.38 H (CELLAVISION)(BEAKER) (test code = 2830) LYMPHOCYTES - ABS 0.91 K/ul 1.32-3.57 L (CELLAVISION)(BEAKER) (test code = 2831) MONOCYTES - ABS 1.81 K/uL 0.30-0.82 H (CELLAVISION)(BEAKER) (test code = 2832) METAMYELOCYTES - ABS 0.36 K/uL 0.00-0.00 H (CELLAVISION)(BEAKER) (test code = 2836) MYELOCYTES-ABS 0.18 K/uL 0.00-0.00 H (CELLAVISION)(BEAKER) (test code = 2837) PROMYELOCYTES - ABS 0.18 K/uL 0.00-0.00 H (CELLAVISION)(BEAKER) (test code = 2838) BANDS - ABS (CELLAVISION)(BEAKER) 0.18 K/uL 0.00-0.80 (test code = 2840) TOTAL COUNTED (BEAKER) (test code 100 = 1351) GIANT PLATELETS (BEAKER) (test Present code = 313) TOXIC GRANULATION (BEAKER) (test Present code = 771) ANISOCYTOSIS (BEAKER) (test code 2+ moderate = 961) MACROCYTES (BEAKER) (test code = 2+ moderate 964) POIKILOCYTES (BEAKER) (test code 3+ many = 966) ELLIPTOCYTES (BEAKER) (test code 2+ moderate = 962) TEAR DROP CELLS (BEAKER) (test 1+ few code = 481) CHIKIS CELLS (BEAKER) (test code = 1+ few 474) PLATELET CONCENTRATION Decreased (CELLAVISION)(BEAKER) (test code = 3438) Stock Driver ID - Samantha comments: Slide comments:PROTHROMBIN TIME/INR 2021-01-10 17:12:00 Test Item Value Reference Range Interpretation Comments PROTIME (BEAKER) 16.0 seconds 11.9-14.2 H (test code = 759) INR (BEAKER) (test 1.30 See_Comment [Automat ed message] code = 370) The system Um[employer] generated this result transmitted ref erence range: <=5.90. The reference range was not used to int erpret this result as normal/abnormal . RECOMMENDED COUMADIN/WARFARIN INR THERAPY RANGESSTANDARD DOSE: 2.0 - 3.0 Includes: PROPHYLAXIS forvenous thrombosis, systemic embolization; TREATMENT for venous thrombosis and/or pulmonary embolus.HIGH RISK: Target INR is 2.5-3.5 for patients with mechanical heart valves.Blood gas, [id number] 16:44:00 Test Item Value Reference Range Interpretation Comments pH, Roque (test code = 7.28 7.32-7.42 L 2746-6) pCO2, Roque (test code = 56 See_Comment H [Aut omated 015) message] The sy stem which generated this result transmitted reference range : 41 - 51 mm Hg. The reference range was not used to interpret this result as normal/abnormal . pO2, Roque (test code = 43 See_Comment H [Auto mated 8365-2) message] The sy stem which generated this result transmitted reference range : 25 - 40 mm Hg. The reference range was not used to interpret this result as normal/abnormal . O2 Sat, Roque (test code 71.2 % 40-70 H = 2711-0) HCO3, Roque (test code = 26 mmol/L 21-29 44654-4) Base Excess, Roque (test -1.3 mmol/L -2-3 code = 1927-3) Patient Temperature 37.3 (test code = 8310-5) FIO2 (test code = 1819) 50 Lab Interpretation Abnormal (test code = 50471-1) [facility] gas, [id number] 16:44:00 Test Item Value Reference Range Interpretation Comments pH, Roque (test code = 7.28 7.32-7.42 L 2746-6) pCO2, Roque (test code = 56 See_Comment H [Aut omated 755) message] The sy stem which generated this result transmitted reference range : 41 - 51 mm Hg. The reference range was not used to interpret this result as normal/abnormal . pO2, Roque (test code = 43 See_Comment H [Auto mated 2705-2) message] The sy stem which generated this result transmitted reference range : 25 - 40 mm Hg. The reference range was not used to interpret this result as normal/abnormal . O2 Sat, Roque (test code 71.2 % 40-70 H = 2711-0) HCO3, Roque (test code = 26 mmol/L 21-29 23395-0) Base Excess, Roque (test -1.3 mmol/L -2-3 code = 1927-3) Patient Temperature 37.3 (test code = 8310-5) FIO2 (test code = 1819) 50 Lab Interpretation Abnormal (test code = 68168-4) [facility] gas, [id number] 16:44:00 Test Item Value Reference Range Interpretation Comments pH, Roque (test code = 7.28 7.32-7.42 L 2746-6) pCO2, Roque (test code = 56 See_Comment H [Aut omated 755) message] The sy stem which generated this result transmitted reference range : 41 - 51 mm Hg. The reference range was not used to interpret this result as normal/abnormal . pO2, Roque (test code = 43 See_Comment H [Auto mated 2705-2) message] The sy stem which generated this result transmitted reference range : 25 - 40 mm Hg. The reference range was not used to interpret this result as normal/abnormal . O2 Sat, Roque (test code 71.2 % 40-70 H = 2711-0) HCO3, Roque (test code = 26 mmol/L 21-29 02393-9) Base Excess, Roque (test -1.3 mmol/L -2-3 code = 1927-3) Patient Temperature 37.3 (test code = 8310-5) FIO2 (test code = 1819) 50 Lab Interpretation Abnormal (test code = 55584-9) [facility] [id number] 16:44:00 Test Item Value Reference Range Interpretation Comments PH VENOUS (BEAKER) (test code = 7.28 7.32-7.42 L 701) PCO2 VENOUS (BEAKER) (test code = 56 mm Hg 41-51 H 755) PO2 VENOUS (BEAKER) (test code = 43 mm Hg 25-40 H 702) O2 SATURATION VENOUS (BEAKER) 71.2 % 40.0-70.0 H (test code = 703) HCO3 VENOUS (BEAKER) (test code = 26 mmol/L 21-29 705) BASE EXCESS VENOUS (BEAKER) (test -1.3 mmol/L -2.0-3.0 code = 704) PATIENT TEMPERATURE (BEAKER) 37.3 (test code = 1818) FIO2 (BEAKER) (test code = 1819) 50.0 [id number] 16:42:00 Test Item Value Reference Range Interpretation Comments PHOSPHORUS (BEAKER) (test code = 10.1 mg/dL 2.3-4.7 HH 604) Stock Driver ID - ADMINCOMPREHENSIVE METABOLIC [id number] 16:41:00 Test Item Value Reference Range Interpretation Comments TOTAL PROTEIN 5.9 gm/dL 6.0-8.3 L (BEAKER) (test code = 770) ALBUMIN (BEAKER) 2.7 g/dL 3.5-5.0 L (test code = 1145) ALKALINE PHOSPHATASE 95 U/L 40-150 (BEAKER) (test code = 346) BILIRUBIN TOTAL 0.9 mg/dL 0.2-1.2 (BEAKER) (test code = 377) SODIUM (BEAKER) (test 144 meq/L 136-145 code = 381) POTASSIUM (BEAKER) 5.0 meq/L 3.5-5.1 (test code = 379) CHLORIDE (BEAKER) 103 meq/L 98-107 (test code = 382) CO2 (BEAKER) (test 24 meq/L 22-29 code = 355) BLOOD UREA NITROGEN 105 mg/dL 7-21 H (BEAKER) (test code = 354) CREATININE (BEAKER) 12.03 mg/dL 0.57-1.25 H (test code = 358) GLUCOSE RANDOM 114 mg/dL 70-105 H (BEAKER) (test code = 652) CALCIUM (BEAKER) 9.1 mg/dL 8.4-10.2 (test code = 697) AST (SGOT) (BEAKER) 113 U/L 5-34 H (test code = 353) ALT (SGPT) (BEAKER) 104 U/L 6-55 H (test code = 347) EGFR (BEAKER) (test 6 mL/min/1.73 ESTIMAT ED GFR IS code = 1092) sq m NOT ACCURATE CREATININE CLEARANCE IN PREDICTING GLOMERULAR FILTRATION RATE . ESTIMATED GFR I S NOT APPLICABLE FOR DIALYSIS PATIEN TS. Stock Driver ID - [id number] 16:30:00 Test Item Value Reference Range Interpretation Comments MAGNESIUM (BEAKER) (test code = 2.8 mg/dL 1.6-2.6 H 627) Stock Driver ID - ADMINLactic acid, [id number] 16:25:00 Test Item Value Reference Range Interpretation Comments Lactate, Venous (test code 1.21 mmol/L 0.5-2.2 = 2872) CARLEY (test code = CARLEY) Stock Driver ID - ADMIN Lab Interpretation (test Normal code = 42820-5) [facility] [id number] 16:25:00 Test Item Value Reference Range Interpretation Comments Lactate, Venous (test code 1.21 mmol/L 0.5-2.2 = 2872) CARLEY (test code = CARLEY) Stock Driver ID - ADMIN Lab Interpretation (test Normal code = 20729-9) [facility], [id number] 16:25:00 Test Item Value Reference Range Interpretation Comments Lactate, Venous (test code 1.21 mmol/L 0.5-2.2 = 2872) CARLEY (test code = CARLEY) Stock Driver ID - ADMIN Lab Interpretation (test Normal code = 72558-6) [facility], [id number] 16:25:00 Test Item Value Reference Range Interpretation Comments LACTATE BLOOD VENOUS (2) (BEAKER) 1.21 mmol/L 0.50-2.20 (test code = 2872) Stock Driver ID - ADMINCBC W/PLT COUNT & AUTO [id number] 16:13:00 Test Item Value Reference Range Interpretation Comments WHITE BLOOD CELL COUNT (BEAKER) 18.1 K/ L 3.5-10.5 H (test code = 775) RED BLOOD CELL COUNT (BEAKER) 3.60 M/ L 4.63-6.08 L (test code = 761) HEMOGLOBIN (BEAKER) (test code = 9.9 GM/DL 13.7-17.5 L 410) HEMATOCRIT (BEAKER) (test code = 32.3 % 40.1-51.0 L 411) MEAN CORPUSCULAR VOLUME (BEAKER) 89.7 fL 79.0-92.2 (test code = 753) MEAN CORPUSCULAR HEMOGLOBIN 27.5 pg 25.7-32.2 (BEAKER) (test code = 751) MEAN CORPUSCULAR HEMOGLOBIN CONC 30.7 GM/DL 32.3-36.5 L (BEAKER) (test code = 752) RED CELL DISTRIBUTION WIDTH 15.2 % 11.6-14.4 H (BEAKER) (test code = 412) PLATELET COUNT (BEAKER) (test 110 K/CU MM 150-450 L code = 756) MEAN PLATELET VOLUME (BEAKER) 12.3 fL 9.4-12.4 (test code = 754) NUCLEATED RED BLOOD CELLS 0 /100 WBC 0-0 (BEAKER) (test code = 413) NEUTROPHILS RELATIVE PERCENT 81 % (BEAKER) (test code = 429) LYMPHOCYTES RELATIVE PERCENT 4 % (BEAKER) (test code = 430) MONOCYTES RELATIVE PERCENT 8 % (BEAKER) (test code = 431) EOSINOPHILS RELATIVE PERCENT 0 % (BEAKER) (test code = 432) BASOPHILS RELATIVE PERCENT 0 % (BEAKER) (test code = 437) NEUTROPHILS ABSOLUTE COUNT 14.68 K/ L 1.78-5.38 H (BEAKER) (test code = 670) LYMPHOCYTES ABSOLUTE COUNT 0.79 K/ L 1.32-3.57 L (BEAKER) (test code = 414) MONOCYTES ABSOLUTE COUNT (BEAKER) 1.40 K/ L 0.30-0.82 H (test code = 415) EOSINOPHILS ABSOLUTE COUNT 0.04 K/ L 0.04-0.54 (BEAKER) (test code = 416) BASOPHILS ABSOLUTE COUNT (BEAKER) 0.05 K/ L 0.01-0.08 (test code = 417) IMMATURE GRANULOCYTES-RELATIVE 6 % 0-1 H PERCENT (BEAKER) (test code = 2801) RAD, CHEST, 1 VIEW, NON [id number] 16:00:00Reason for exam:->ETTShould this be performed at the bedside?->Yes [facility] : 1975 Sex: MFINAL REPORT TECHNIQUE: Frontal view of the chest. INDICATION: ETT CO MPARISON:None DISCUSSION:Limited evaluation due to portable technique. Lines and hardware: Endotracheal tube is identified with tip projecting 4.6 cm above the nitin. Subdiaphragmatic enteric tube is noted. Overlying EKG leads are noted.Heart and mediastinum: Within normal limits for technique.Lungs and pleura: Multifocal bilateral airspace opacities are noted with a perihilar predominance. Negativefor large effusion or pneumothorax.Soft tissues and bones: No acute abnormality. IMPRESSION:Multifocal bilateral perihilar predominant airspace opacities concerning for fluid overload/pulmonary edema versus multifocal pneumonia. Signed: Williams Garrett MDReport Verified Date/Time: 01/10/2021 16:00:56 Reading Location: [facility] POCT-GLUCOSE [id number] 15:13:00 Test Item Value Reference Range Interpretation Comments POC-GLUCOSE METER 114 mg/dL 70-110 H : TESTED Elias Dominguez [facility] [address] (TAMARA) (test code = [place], 1538) [address]: Stock Driver/Techni won ID = [id number] for ABRAN PALOMINO, TUNNELED CATHETER [id number] 10:49:00FINAL REPORT TUNNELED DIALYSIS CATHETER PLACEMENT, UNDER FLUOROSCOPY History p rovided: Renal failure PROCEDURE: Informed consent was obtained. Patient's medication list was reviewed. Timeout procedure was performed. All elements of strict sterile barrier were employed, includingcap, mask, sterile gloves, and sterile drape. Moderate conscious sedation was achieved utilizing twomg IV Versed and 150 ug IV Fentanyl [...] a patent left internal jugular vein , real- time ultrasound guidancewas used to puncture the vessel. A permanent [...] use. Fluoroscopy time: 0.5 minutes Radiation dose (tam Huertas): 10 mGy Signed: Riky Boone MDReport Verified Date/Time: 02/03/2019 10:49:11 Reading Location: [place] [address] Angio Body Reading Room COMPREHENSIVE METABOLIC [id number] 07:04:00 Test Item Value Reference Range Interpretation Comments TOTAL PROTEIN 6.4 gm/dL 6.0-8.3 (BEAKER) (test code = 770) ALBUMIN (BEAKER) 3.6 g/dL 3.5-5.0 (test code = 1145) ALKALINE PHOSPHATASE 50 U/L 40-150 (BEAKER) (test code = 346) BILIRUBIN TOTAL 0.4 mg/dL 0.2-1.2 (BEAKER) (test code = 377) SODIUM (BEAKER) (test 136 meq/L 136-145 code = 381) POTASSIUM (BEAKER) 5.0 meq/L 3.5-5.1 (test code = 379) CHLORIDE (BEAKER) 104 meq/L 98-107 (test code = 382) CO2 (BEAKER) (test 19 meq/L 22-29 L code = 355) BLOOD UREA NITROGEN 97 mg/dL 7-21 H (BEAKER) (test code = 354) CREATININE (BEAKER) 25.95 mg/dL 0.57-1.25 H (test code = 358) GLUCOSE RANDOM 115 mg/dL 70-105 H (BEAKER) (test code = 652) CALCIUM (BEAKER) 8.6 mg/dL 8.4-10.2 (test code = 697) AST (SGOT) (BEAKER) 9 U/L 5-34 (test code = 353) ALT (SGPT) (BEAKER) < U/L 6-55 L (test code = 347) EGFR (BEAKER) (test 2 mL/min/1.73 ESTIMAT ED GFR IS code = 1092) sq m NOT ACCURATE CREATININE CLEARANCE IN PREDICTING GLOMERULAR FILTRATION RATE . ESTIMATED GFR I S NOT APPLICABLE FOR DIALYSIS PATIEN TS. CBC (HEMOGRAM ONLY)2019-02-03 06:04:00 Test Item Value [...] (test code = 413) HEPATITIS B SURFACE [id number] 01:25:00 Test Item Value Reference Range Interpretation Comments HEPATITIS B SURFACE ANTIGEN (2) Nonreactive Nonreactive (BEAKER) (test code = 2585) BASIC METABOLIC [id number] 01:10:00 Test Item Value Reference Range Interpretation [...] S NOT APPLICABLE FOR DIALYSIS PATIEN TS. [id number] 01:03:00 Test Item Value Reference Range Interpretation Comments POTASSIUM (BEAKER) (test code = 5.4 meq/L 3.5-5.1 H 379) PROTHROMBIN TIME/[id number] 01:01:00 Test Item Value Reference Range Interpretation [...] for patients wiht mechanical heart valves.BASIC METABOLIC [id number] 19:02:00 Test Item Value Reference Range Interpretation [...]
[2021-07-08] MEDS ORDERED: LIDOCAINE 1% MPF 2 ML AMPULE ONE (01:54)
[2021-07-08] MEDS ORDERED: AZITHROMYCIN 250 MG TAB ONE (01:54)
[2021-07-08] MEDS ORDERED: CEFTRIAXONE 500 MG/VIAL ONE (01:54)
--- NOTE | 2021-07-08 03:07 | ER ---
Nurse's Notes [facility] Name: Jermaine Rivera Age: 46 yrs Sex: Male : 1975 Arrival Date: 07/08/2021 Time: 01:00 Bed 18 Private MD: Diagnosis: Other inflammatory disorders of penis-Possible sexually transmitted disease exposure Presentation: 07/08 01:07 Chief complaint: Patient states: Head of Penis is red and swollen, started seven days sf1 ago. Has been taking an "otc antibiotic"Dialysis patient goes Tues, Thurs, Sat. Coronavirus screen: Vaccine status: Patient reports receiving the 1st dose of the Covid vaccine. Client denies travel out of the [place] in the last 14 days. Ebola Screen: Patient negative for fever greater than or equal to 101.5 degrees Fahrenheit, and additional compatible Ebola Virus Disease symptoms Patient denies exposure to infectious person. Patient denies travel to an Ebola-affected area in the 21 days before illness onset. Onset: The symptoms/episode began/occurred gradually. Anaphylaxis evaluation, the patient reports or I have noted the following symptoms which indicate a significant risk of anaphylaxis: no signs or symptoms of anaphylaxis were noted. Initial Sepsis Screen: Does the patient meet any 2 criteria? No. Patient's initial sepsis screen is negative. Does the patient have a suspected source of infection? No. Patient's initial sepsis screen is negative. Risk Assessment: Do you want to hurt yourself or someone else? Patient reports no desire to harm self or others. Onset of symptoms was June 30, 2021. 01:07 Method Of Arrival: Wheelchair sf1 01:07 Acuity: FERNANDA 3 sf1 Triage Assessment: 01:11 General: Appears in no apparent distress. Behavior is calm, cooperative, drowsy. Pain: sf1 Complains of pain in groin. Historical: - Allergies: 01:11 No Known Allergies; sf1 - Home Meds: 01:11 terazosin 5 mg Oral cap 2 caps twice a day [Active]; Crystal-Angie Oral [Active]; Renagel sf1 Oral [Active]; nifedipine 90 mg Oral cpER 1 tab twice a day [Active]; metoprolol tartrate 50 mg Oral tab 2 tabs 2 times per day [Active]; hydralazine 100 mg Oral tab 1 tab 3 times per day [Active]; - PMHx: 01:11 Brain bleed; CVA; Dialysis; Hypertension; Renal Disease; CVA; sf1 - PSHx: 01:11 heart surgery valve replaced; sf1 - Immunization history:: Flu vaccine is up to date. - Social history:: Smoking status: Patient denies any tobacco usage or history of. Patient/guardian denies using alcohol, street drugs. Screenin:11 Abuse screen: Denies threats or abuse. Nutritional screening: No deficits noted. ll3 Tuberculosis screening: No symptoms or risk factors identified. Fall Risk Secondary diagnosis (15 points) impaired mobility, Gait- Weak (10 pts.). Total Ceja Fall Scale indicates Low Risk Score (25-44 pts). Fall prevention measures have been instituted. Side Rails Up X 2 Placed close to Nursing Station Frequent Obs/Assesments occuring. Assessment: 01:14 General: Appears in no apparent distress. uncomfortable, Behavior is calm, cooperative. ll3 Pain: Complains of pain in head of penis. Cardiovascular: Patient's skin is warm and dry. Respiratory: Airway is patent Respiratory effort is even, unlabored, Respiratory pattern is regular, symmetrical, Breath sounds are clear bilaterally. : Lesions noted on penis Reports discharge, from penis that is Discharge after urination. Derm: Skin is pink, warm \\T\\ dry. Wound noted head of penis Wound is Black lesion to head of penis, states occurred 7 days ago. 01:15 Reassessment: Patient appears in no apparent distress at this time. No changes from ll3 previously documented assessment. Patient and/or family updated on plan of care and expected duration. Pain level reassessed. Patient is alert, oriented x 3, equal unlabored respirations, skin warm/dry/pink. 02:30 Reassessment: Patient appears in no apparent distress at this time. No changes from ll3 previously documented assessment. Patient and/or family updated on plan of care and expected duration. Pain level reassessed. Patient is alert, oriented x 3, equal unlabored respirations, skin warm/dry/pink. 03:30 Reassessment: Patient appears in no apparent distress at this time. No changes from ll3 previously documented assessment. Patient and/or family updated on plan of care and expected duration. Pain level reassessed. Patient is alert, oriented x 3, equal unlabored respirations, skin warm/dry/pink. Vital Signs: 01:07 BP 132 / 92; Pulse 77; Resp 18; Temp 98.66; Pulse Ox 99% on R/A; Weight 79.38 kg; 1 Height 6 ft. (182.88 cm); Pain 7/10; 03:30 BP 133 / 90; Pulse 76; Resp 17; Pulse Ox 99% on R/A; ll3 01:07 Body Mass Index 23.73 (79.38 kg, 182.88 cm) 1 ED Course: 01:00 Patient arrived in ED. 01:07 Alyce Mccoy, RN is Primary Nurse. sf1 01:11 Triage completed. sf1 01:11 Arm band placed on right wrist. 1 01:14 Dada Petty MD is Attending Physician. [facility] 02:11 Patient has correct armband on for positive identification. Bed in low position. Call ll3 light in reach. Side rails up X 1. 03:05 John Cole MD is Referral Physician. [facility] 03:17 Initial lab(s) drawn, by nc, sent to lab. 5 03:18 Rpr Sent. tw5 04:04 No provider procedures requiring assistance completed. Patient did not have IV access ll3 during this emergency room visit. Administered Medications: 02:08 Drug: Rocephin (cefTRIAXone) 500 mg Route: IM; Site: left gluteus; ll3 02:08 Drug: AZITHromycin 1 grams Route: PO; ll3 Outcome: 03:06 [address] . [facility] 04:04 Discharged to home via wheelchair, with family. 3 04:04 Condition: stable 04:04 Discharge instructions given to patient, Instructed on discharge instructions, follow up and referral plans. Demonstrated understanding of instructions, follow-up care. 04:05 Patient left the ED. 3 Signatures: Dada Petty MD MD [facility] Camilla Powell Ana Gonzalez [facility] Matt Barkley RN RN 3 Alyce Mccoy RN RN 1
--- NOTE | 2021-07-08 03:07 | EDPHYS ---
Physician Documentation [facility] Name: Jermaine Rivera Age: 46 yrs Sex: Male : 1975 Arrival Date: 07/08/2021 Time: 01:00 Bed 18 Private MD: ED Physician Dada Petty HPI: 07/08 01:47 This 46 yrs old Black Male presents to ER via Wheelchair with complaints of Itching - mh7 Genital, Penile Discharge. 01:48 The patient presents with a possible STD exposure, symptoms include yellow penile mh7 discharge, ulceration of the head of penis. Onset: The symptoms/episode began/occurred 1 week(s) ago. Modifying factors: The symptoms are alleviated by nothing, the symptoms are aggravated by nothing. Associated signs and symptoms: Pertinent negatives: abdominal pain, constipation, diarrhea, dysuria, fever, hematuria, nausea, vomiting. Severity of symptoms: At their worst the symptoms were mild, 4 day(s) ago, in the emergency department the symptoms are unchanged. Historical: - Allergies: 01:11 No Known Allergies; sf1 - Home Meds: 01:11 terazosin 5 mg Oral cap 2 caps twice a day [Active]; Crystal-Angie Oral [Active]; Renagel sf1 Oral [Active]; nifedipine 90 mg Oral cpER 1 tab twice a day [Active]; metoprolol tartrate 50 mg Oral tab 2 tabs 2 times per day [Active]; hydralazine 100 mg Oral tab 1 tab 3 times per day [Active]; - PMHx: 01:11 Brain bleed; CVA; Dialysis; Hypertension; Renal Disease; CVA; sf1 - PSHx: 01:11 heart surgery valve replaced; sf1 - Immunization history:: Flu vaccine is up to date. - Social history:: Smoking status: Patient denies any tobacco usage or history of. Patient/guardian denies using alcohol, street drugs. ROS: 01:48 Constitutional: Negative for fever, chills, and weight loss, Eyes: Negative for injury, mh7 pain, redness, and discharge, ENT: Negative for injury, pain, and discharge, Neck: Negative for injury, pain, and swelling, Cardiovascular: Negative for chest pain, palpitations, and edema, Respiratory: Negative for shortness of breath, cough, wheezing, and pleuritic chest pain, Abdomen/GI: Negative for abdominal pain, nausea, vomiting, diarrhea, and constipation, Back: Negative for injury and pain, MS/Extremity: Negative for injury and deformity, Skin: Negative for injury, rash, and discoloration, Neuro: Negative for headache, weakness, numbness, tingling, and seizure, Psych: Negative for depression, anxiety, suicide ideation, homicidal ideation, and hallucinations, Allergy/Immunology: Negative for hives, rash, and allergies, Endocrine: Negative for neck swelling, polydipsia, polyuria, polyphagia, and marked weight changes, Hematologic/Lymphatic: Negative for swollen nodes, abnormal bleeding, and unusual bruising. Exam: 01:48 Constitutional: This is a well developed, well nourished patient who is awake, alert, mh7 and in no acute distress. Head/Face: Normocephalic, atraumatic. Eyes: Pupils equal round and reactive to light, extra-ocular motions intact. Lids and lashes normal. Conjunctiva and sclera are non-icteric and not injected. Cornea within normal limits. Periorbital areas with no swelling, redness, or edema. Neck: Trachea midline, no thyromegaly or masses palpated, and no cervical lymphadenopathy. Supple, full range of motion without nuchal rigidity, or vertebral point tenderness. No Meningismus. Chest/axilla: Normal chest wall appearance and motion. Nontender with no deformity. No lesions are appreciated. Cardiovascular: Regular rate and rhythm with a normal S1 and S2. No gallops, murmurs, or rubs. Normal PMI, no JVD. No pulse deficits. Respiratory: Lungs have equal breath sounds bilaterally, clear to auscultation and percussion. No rales, rhonchi or wheezes noted. No increased work of breathing, no retractions or nasal flaring. Abdomen/GI: Soft, non-tender, with normal bowel sounds. No distension or tympany. No guarding or rebound. No evidence of tenderness throughout. Back: No spinal tenderness. No costovertebral tenderness. Full range of motion. Skin: Warm, dry with normal turgor. Normal color with no rashes, no lesions, and no evidence of cellulitis. MS/ Extremity: Pulses equal, no cyanosis. Neurovascular intact. Full, normal range of motion. Neuro: Awake and alert, GCS 15, oriented to person, place, time, and situation. Cranial nerves II-XII grossly intact. Motor strength 5/5 in all extremities. Sensory grossly intact. Cerebellar exam normal. Normal gait. Psych: Awake, alert, with orientation to person, place and time. Behavior, mood, and affect are within normal limits. 01:48 : CVA tenderness, is absent, Male external genitalia: lesion, of the head of penis, 7 erythematous, Ulcerated lesion with scab formation, penile discharge, is absent, puncture, is not present, swelling, is not appreciated, tenderness, is not appreciated, ulceration, of the head of penis is present, that is small, without appreciated drainage, Bladder: is normal, Rectal exam: is refused by patient or guardian. Vital Signs: 01:07 BP 132 / 92; Pulse 77; Resp 18; Temp 98.66; Pulse Ox 99% on R/A; Weight 79.38 kg; sf1 Height 6 ft. (182.88 cm); Pain 7/10; 03:30 BP 133 / 90; Pulse 76; Resp 17; Pulse Ox 99% on R/A; ll3 01:07 Body Mass Index 23.73 (79.38 kg, 182.88 cm) 1 MDM: 03:03 Differential diagnosis: UTI, urethritis, STD infection/exposure. Data reviewed: [facility] signs, nurses notes. Data interpreted: Pulse oximetry: on room air is 99 %. Interpretation: normal. Counseling: I had a detailed discussion with the patient and/or guardian regarding: the historical points, exam findings, and any diagnostic results supporting the discharge/admit diagnosis, the presence of at least one elevated blood pressure reading (>120/80) during this emergency department visit, the need for outpatient follow up, to return to the emergency department if symptoms worsen or persist or if there are any questions or concerns that arise at home. Response to treatment: the patient's symptoms have markedly improved after treatment. 03:06 Patient medically screened. [facility] 07/08 01:38 Order name: Rpr; Complete Time: 03:54 [facility] 07/08 01:38 Order name: GC (GONORR/CHLAMYDIA) Probe [facility] 07/08 02:39 Order name: Glucose, Ancillary Testing; Complete Time: 03:54 EDMS Administered Medications: 02:08 Drug: Rocephin (cefTRIAXone) 500 mg Route: IM; Site: left gluteus; ll3 02:08 Drug: AZITHromycin 1 grams Route: PO; ll3 Disposition Summary: 07/08/21 03:06 Discharge Ordered Location: Home [facility] Problem: new [facility] Symptoms: have improved mh Condition: Stable [facility] Diagnosis - Other inflammatory disorders of penis - Possible sexually transmitted disease [facility] exposure Followup: [facility] - With: Private Physician - When: 1 - 2 days - Reason: Worsening of condition, Recheck today's complaints, Continuance of care, Re-evaluation by your physician Followup: [facility] - With: John Cole MD - When: 2 - 3 days - Reason: Worsening of condition, Recheck today's complaints Discharge Instructions: - Discharge Summary Sheet [facility] - Preventing Sexually Transmitted Infections, Adult [facility] Forms: - Medication Reconciliation Form [facility] - Thank You Letter [facility] - Antibiotic Education [facility] - Prescription Opioid Use [facility] Signatures: Dispatcher [employer] Dada Banda MD MD 7 Matt Barkley RN RN ll3 Alyce Mccoy RN RN sf1 Corrections: (The following items were deleted from the chart) 01:50 01:47 The patient presents [place] [id number]
[2021-07-08 04:29] VITALS: BP 133/90; O2SAT 99
[2021-07-09 21:26] LABS: RPR (Rapid Plasma Reagin) NON-REACT (NON-REACT)
== END 2021-07-08 04:05 | disposition home or self-care (01) ==
LOC: ER 00:56
DX: N48.29 Other inflammatory disorders of penis (principal); I12.0 Hypertensive chronic kidney disease with stage 5 chronic kidney disease or end stage renal disease; N18.6 End stage renal disease; Z99.2 Dependence on renal dialysis; Z95.4 Presence of other heart-valve replacement
CPT/HCPCS: 36415; 82947; 86592; 87590; 87490; 96372; 99283; J0696

== ENCOUNTER 2021-07-31 01:48 | Observation (INO) | payer OTHER ==
--- OUTSIDE RECORDS SUMMARY | 2021-07-31 02:25 | XMS REPORT | Continuity of Care Document ---
:1975 Author Organization [facility] t Address [address] [place] [address] Care Team Providers Name Role Phone Pcp [...] Number Effective Date Expiration Date S harish [facility] [id number] 2017 PLUS 00:00:00 [place]ICAID [place] [id number] 2019 00:00:00 [facility] ST[facility] [id number] 2018 PLAN 00:00:00 Problems Condition Condition Condition Status Onset Resolution Last Treating Co mments Source Name Details Category Date Date Treatment Clinician Date s/p s/p Disease Active [facility] MV[facility] MVReplace 01-11 [facility] - 00:00: Medica l Omra - Omar - 00 Cent er 01/11/21 01/11/21 Endocardit Endocardit Disease Active [facility] is is 01-11 [facility] - 00:00: Medical 00 [place] Mitral Mitral Disease Active [facility]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 01-11 [facility] - regurgitat regurgitat 00:00: Me dical ion ion 00 Center ESRD (end ESRD (end Disease Active Overview: Univers stage stage 3-11 Added ity of renal renal 00:00: automatic [place] disease) disease) 00 ally from [facility] request Branch for surgery [id number] HYPERTENSI Diagnosis Active 2018-062019-04-02 Memoria VE THALAMI 0-06 22:34:00 l 00:00: Demond HYPERTENSI 00 VE THALAMI Active 03/15/2019 [facility] Hyperkalem Hyperkalem Disease Active [facility] ia ia 02-02kes - 00:00: Medical 00 Center Shock Shock Disease Active [facility] Right Right Disease Active [facility] ventricula ventricula [facility] - r r Medical dysfunctio dysfunctio Ce nter n n Acute Acute Disease Active [facility] blood loss blood loss [facility] anemia anemia [facility] Thrombocyt Thrombocyt Disease Active [facility] openia openia [facility] Hyperglyce Hyperglyce Disease Active [facility] sylwia sylwia [facility] ESRD (end ESRD (end Disease Active [facility] stage stage [facility] - renal renal Medical disease) disease) Center on on dialysis dialysis Delirium Delirium Disease Active [facility] t due to due to [facility] medical medical Medical condition condition Cent er with with behavioral behavioral disturbanc disturbanc e e Essential Essential Disease Active [facility] hypertensi hypertensi [facility] - on on Medical Center Cardiac Cardiac Disease Active [facility] arrest arrest [facility] Cardiogeni Cardiogeni Disease Active [facility] c shock c shock [facility] PEA PEA Disease Active [facility] (Pulseless (Pulseless [facility] - electrical electrical Me dical activity) activity) Cent er Hypovolemi Hypovolemi Disease Active [facility] c shock c shock [facility] Hemorrhagi Hemorrhagi Disease Active [facility] c shock c shock [facility] Metabolic Metabolic Disease Active [facility] acidosis acidosis [facility] Lactic Lactic Disease Active [facility] acidosis acidosis [facility] Hypoglycem Hypoglycem Disease Active [facility] ia ia [facility] Hemothorax Hemothorax Disease Active [facility] on left on left [facility] Coagulopat Coagulopat Disease Active [facility] hy hy [facility] Vasogenic Vasogenic Disease Active [facility] shock shock [facility] Anemia, Anemia, Disease Active [facility] unspecifie unspecifie Chidi s - d type d type [facility] Center Acute Acute Disease Active [facility] respirator respirator [facility] - y failure y failure Medi diallo with with Center hypoxia hypoxia HYPERTENSI Diagnosis Active 2019-04-02 Memoria VE 22:34:00 l EMERGENCY Demond HYPERTENSI VE EMERGENCY Active [facility] Allergies, Adverse Reactions, Alerts Allergy Allergy Status Severity Reaction(s) Onset Inactive Treating Comm ents Source Name Type Date Date Clinician NO KNOWN Drug Active Univers ALLERGIE Class [facility] NO KNOWN Allergy Active [facility] ALLERGIE [facility] Social History Social Habit Start Date Stop Date Quantity Comments Source History SDNC [facility] - Alcohol Std Medical Cente r Drinks History [facility] - Alcohol Binge Medical Eleuterio ter Exposure to Not sure [facility] - SARS-CoV-2 [facility] Center (event) Sex Assigned At [facility] Alcohol intake 2021-01-23 2021-01-[address] [facility] - 00:00:00 00:00:00 non-drinker of Medical Ce nter alcohol (finding) Tobacco use and 2019-08-19 2019-08-19 Never used Universit y of exposure 00:00:00 00:00:00 [facility] History SDOH 2019-02-18 2019-02-[address] [facility] - Alcohol Frequency 00:00:00 00:00:00 Medical Center Smoking Status Start Date Stop Date Source Never smoker [facility] Unknown if ever smoked [facility] Medications Ordered Filled Start Stop [...] MCG 16:49: mouth Medical capsule 21 daily. [place] cholecalcif Yes 5000U QD Take 5,[address] dori, 8-03 Units by [facility] - vitamin D3, 16:49: mouth Medic al 5,000 unit 21 daily. [place] Tab hydrALAZINE Yes 100mg [id number] Take [address] (APRESOLINE 8-03 [id number] mg by L ukes - ) 100 MG 16:49: 3D mouth 3 Medica l tablet 21 (three) Center times daily. ramipril Yes 10mg QD Take [address] (ALTACE) 10 8-03 by mouth Luke s - MG capsule 16:49: daily. Medic al 21 [place] sevelamer 0 Yes 800mg Take [address] (RENVELA) 8-03 mg by [facility] - 800 mg 16:49: mouth 3 Medical tablet 21 (three) Center times daily with meals. calcitriol Yes .5ug QD Take 0.[address] (ROCALTROL) 8-03 mcg by [facility]ukes - 0.5 MCG 16:49: mouth Medical capsule 21 daily. [place] cholecalcif Yes 5000U QD Take 5,[address] dori, 8-03 Units by [facility] - vitamin D3, 16:49: mouth Medic al 5,000 unit 21 daily. Center Tab hydrALAZINE 0 Yes 100mg [id number] Take [address] (APRESOLINE 8-03 [id number] mg by L ukes - ) 100 [...] 21 daily. Center Tab hydrALAZINE Yes 100mg Q.[id number] Take [address] (APRESOLINE 8-03 [id number] mg by L ukes - ) 100 [...] MG 00:00: mouth Medical tablet 00 daily. [place] terazosin 0 Yes 1{capsu Take [address] (HYTRIN) 10 5-24 le} capsule by [facility]idi kes - MG capsule 00:00: mouth 2 Medi diallo 00 (two) Center times daily as needed. minoxidiL Yes 1{tbl} QD Take [address] (LONITEN) 5-24 tablet by [facility]ukes - 2.5 MG 00:00: mouth Medical tablet 00 daily. [place] terazosin 0 Yes 1{capsu Take [address] (HYTRIN) 10 5-24 le} capsule by Chidi kes - MG capsule 00:00: mouth 2 Medi diallo 00 (two) Center times daily as needed. metoprolol 0 Yes 1{tbl} QD Take [address] tartrate 5-17 tablet by Lukes - (LOPRESSOR) 00:00: mouth Medic al 100 MG 00 daily. [place] tablet metoprolol 0 Yes 1{tbl} QD Take [address] tartrate 5-17 tablet by Lukes - (LOPRESSOR) 00:00: mouth Medic al 100 MG 00 daily. [place] tablet metoprolol 0 Yes 1{tbl} QD Take [address] tartrate 5-17 tablet by Lukes - (LOPRESSOR) 00:00: mouth Medic al 100 MG 00 daily. [place] tablet [facility]IPRIL 2019-0 [facility] mouth. ity of 14:19: [address] SEVELAMER 2019-0 Yes Take by Univ ers HCL ORAL 6-08 mouth. ity of 14:19: [address] METOPROLOL 2019-0 Yes Take by Uni vers TARTRATE 6-08 mouth. ity of ORAL 14:19: [address] terazosin 2019-0 Yes Take by Univ ers HCl (HYTRIN 6-08 mouth. ity of ORAL) 14:19: [address] RAMIPRIL 2020-0 Yes Take by Unive rs ORAL 6-08 mouth. ity of 14:19: [address] SEVELAMER 2019-0 Yes Take by Univ ers HCL ORAL 6-08 mouth. ity of 14:19: [address] METOPROLOL 2019-0 Yes Take by Uni vers TARTRATE 6-08 mouth. ity of ORAL 14:19: [address] terazosin 0 Yes Take by Univ ers HCl (HYTRIN 6-08 mouth. ity of ORAL) 14:19: [address] RAMIPRIL 2019-0 Yes Take by Unive rs ORAL 6-08 mouth. ity of 14:19: [address] SEVELAMER 2019-0 Yes Take by Univ ers HCL ORAL 6-08 mouth. ity of 14:19: [address] METOPROLOL 2019-0 Yes Take by Uni vers TARTRATE 6-08 mouth. ity of ORAL 14:19: [address] terazosin Yes Take by Univ ers HCl (HYTRIN 6-08 mouth. ity of ORAL) 14:19: [address] No known No Univers medications ity [facility] No known No Univers medications ity [facility] No known No Univers medications ity [facility] No known No Univers medications ity [facility] No known No Univers medications ity [facility] No known No Univers medications ity [facility] No known No [facility] Vital Signs Vital Name Observation Time Observation [...] 2019-08-19 16:08:00 121 mm[Hg] [facility]iver [facility] Diastolic blood 2019-08-19 16:08:00 57 mm[Hg] Unive rsity [facility] Heart rate 2019-08-19 16:08:00 76 /min [facility] Body temperature 2019-08-19 16:08:00 36.5 [facility] Respiratory rate 2019-08-19 16:08:00 18 /min [facility] height 2019-08-19 16:08:00 180.3 cm [facility] Body weight 2019-08-19 16:08:00 86.773 kg [facility] BMI 2019-08-19 16:08:00 26.68 kg/m2 [facility] Heart rate 2021-02-02 12:00:00 63 /min [facility] Body temperature 2021-02-02 12:00:00 37.44 [place] [facility] Respiratory rate 2021-02-02 12:00:00 21 /min [facility] Oxygen saturation in 2021-02-02 12:00:00 100 /min [facility] blood by Medical Ce nter Pulse oximetry Heart rate 2021-02-02 10:45:00 63 /min [facility] Respiratory rate 2021-02-02 10:45:00 20 /min [facility] Oxygen saturation in 2021-02-02 10:45:00 100 /min [facility] Arterial blood by Medical Ce nter Pulse oximetry Body temperature 2021-02-02 08:00:00 37.33 [place] [facility] Systolic blood 2021-02-02 03:46:00 172 mm[Hg] [facility] Diastolic blood 2021-02-02 03:46:00 89 mm[Hg] [facility] Body weight 2021-01-31 06:00:00 70.217 kg [facility] BMI 2021-01-31 06:00:00 19.88 kg/m2 [facility] Body height 2021-01-10 15:00:00 188 cm [facility] Procedures Procedure Date / Time Performing Clinician Source Performed POCT-GLUCOSE METER 2021-02-02 Michael Steve [facility] - 07:25:00 [facility] POCT-GLUCOSE METER 2021-02-02 SteveMichael rios [facility] - 03:45:00 [facility] PROTHROMBIN TIME/INR 2021-02-02 Leonidas Ocampo [facility] - 03:36:00 [facility] CALCIUM, IONIZED 2021-02-02 Luz Rojas [facility] - 03:36:00 [facility] CBC W/PLT COUNT & AUTO 2021-02-02 [facility] - DIFFERENTIAL 03:36:00 [facility] MAGNESIUM 2021-02-02 [facility] Kasia Mcgrath [facility] - 03:36:00 [facility] PHOSPHORUS 2021-02-02 [facility] cain [facility] - 03:36:00 [facility] BASIC METABOLIC PANEL (7) 2021-02-[address] [facility] - 03:36:00 [facility] PTH, INTACT 2021-02-02 Lizeth Armstrong [facility] - 03:36:00 [facility] XR CHEST 1 VIEW PORTABLE / 2021-02-02 RicheyKasia Aguirre [facility] - BEDSIDE 00:16:00 [facility] POCT-GLUCOSE METER 2021-02-[address] [facility] - 23:57:00 [facility] POCT-GLUCOSE METER 2021-02-[address] [facility] - 15:26:00 [facility] HEMODIALYSIS INPATIENT 2021-02-[address] [facility] - 14:59:53 [facility] POCT-GLUCOSE METER 2021-02-[address] [facility] - 14:47:[address] [facility] [address] CHEST WITHOUT IV CONTRAST 2021-02-[address] [facility] - 12:29:00 [facility] POCT-GLUCOSE METER 2021-02-[address] [facility] - 11:36:00 [facility] CALCIUM, IONIZED 2021-02-[address] [facility] - 04:21:00 [facility] CBC W/PLT COUNT & AUTO 2021-02-[address] [facility] - DIFFERENTIAL 04:21:00 [facility] MAGNESIUM 2021-02-[address] [facility] [facility] - 04:21:00 [facility] PHOSPHORUS 2021-02-[address] [facility] - 04:21:00 [facility] BASIC METABOLIC PANEL (7) 2021-02-[address] [facility] - 04:21:00 [facility] PROTHROMBIN TIME/INR 2021-02-[address] [facility] - 04:21:00 [facility] POCT-GLUCOSE METER 2021-02-[address] [facility] - 01:05:00 [facility] XR CHEST 1 VIEW PORTABLE / 2021-02-[address] [facility] - BEDSIDE 00:21:00 [facility] POCT-GLUCOSE METER 2021-01-[address] [facility] - 21:51:00 [facility] HEMOGLOBIN AND HEMATOCRIT 2021-01-[address] [facility] - 17:12:00 [facility] POCT-GLUCOSE METER 2021-01-[address] [facility] - 11:25:00 [facility] POCT-GLUCOSE METER 2021-01-[address] [facility] - 07:13:00 [facility] PT/APTT 2021-01-[address] [facility] - 04:25:00 [facility] APTT 2021-01-31 Beram, Luz [facility] - 04:25:00 [facility] BLOOD GAS, ARTERIAL 2021-01-31 Beram, Jihad [facility] - 04:25:00 [facility] CALCIUM, IONIZED 2021-01-31 Beram, Jihad [facility] - 04:25:00 [facility] Center LACTIC ACID, ARTERIAL 2021-01-31 Richeybulmaro Mcgrath, Kasia [facility] - 04:25:00 [facility] CBC W/PLT COUNT & AUTO 2021-01-[address] [facility] - DIFFERENTIAL 04:25:00 [facility] MAGNESIUM 2021-01-31 Richey Mcgrath, Kasia [facility] - 04:25:00 [facility] PHOSPHORUS 2021-01-31 Richey Mcgrath, Kasia [facility] - 04:25:00 [facility] BASIC METABOLIC PANEL (7) 2021-01-[address] [facility] - 04:25:00 [facility] XR CHEST 1 VIEW PORTABLE / 2021-01-[address] [facility] - BEDSIDE 00:45:00 [facility] PREPARE LEUKO-REDUCED RBC 2021-01-[address] [facility] - 23:54:00 [facility] Center BLOOD GAS, ARTERIAL 2021-01-[address] [facility] - 21:04:00 [facility] BLOOD GAS, ARTERIAL 2021-01-[address] [facility] - 21:03:00 [facility] SODIUM NA-STAT LAB 2021-01-[address] [facility] - 21:03:00 [facility] POTASSIUM-STAT LAB 2021-01-[address] [facility] - 21:03:00 [facility] GLUCOSE-STAT LAB 2021-01-[address] [facility] - 21:03:00 [facility] HGB/HCT (H&H) - STAT LAB 2021-01-[address] [facility] - 21:03:00 [facility] PROTHROMBIN TIME/INR 2021-01-[address] [facility] - 19:20:00 Medical Center MAGNESIUM 2021-01-30 Beram, Luz [facility] - 19:20:00 [facility] CALCIUM, IONIZED 2021-01-30 Beram, Jihad [facility] - 19:20:00 [facility] BASIC METABOLIC PANEL (7) 2021-01-[address] [facility] - 19:20:00 [facility] POCT-GLUCOSE METER 2021-01-[address] [facility] - 18:36:00 [facility] HEMODIALYSIS INPATIENT 2021-01-[address] [facility] - 14:24:20 [facility] Center POCT-GLUCOSE METER 2021-01-[address] [facility] - 12:27:00 [facility] Center PROTHROMBIN TIME/INR 2021-01-[address] [facility] - 12:18:00 [facility] Center POCT-GLUCOSE METER 2021-01-[address] [facility] - 06:08:00 [facility] Center BLOOD GAS, ARTERIAL 2021-01-30 Beram, Jijoe [facility] - 04:30:00 [facility] Center BLOOD GAS, ARTERIAL 2021-01-30 Beram, Luz [facility] - 02:05:00 [facility] Center CALCIUM, IONIZED 2021-01-30 Beram, Luz [facility] - 02:05:00 [facility] Center LACTIC ACID, ARTERIAL 2021-01-30 Kaiden Mcgrath, Kasia [facility] - 02:05:00 [facility] OXYGEN SATURATION, MEASURED 2021-01-[address] [facility] - 02:05:00 [facility] PT/APTT 2021-01-[address] [facility] - 02:04:00 [facility] APTT 2021-01-[address] [facility] - 02:04:00 [facility] CBC W/PLT COUNT & AUTO 2021-01-30 [facility] Mcgrath, Kasia [facility] - DIFFERENTIAL 02:04:00 [facility] MAGNESIUM 2021-01-30 [facility] Mcgrath, Kasia [facility] - 02:04:00 [facility] PHOSPHORUS 2021-01-30 [facility] Mcgrath, Kasia [facility] - 02:04:00 [facility] BASIC METABOLIC PANEL (7) 2021-01-30 [facility] Alcides, Kasia Moon [facility] - 02:04:00 [facility] XR CHEST 1 VIEW PORTABLE / 2021-01-30 [facility] 00:36:00 [facility] POCT-GLUCOSE METER 2021-01-29 Valluri Yuk[address] Hailetik [facility] - 23:18:00 [facility] TRANSFUSE LEUKO-REDUCED RED 2021-01-29 Maura Pierce [facility] - BLOOD CELLS 23:08:22 [facility] CBC W/PLT COUNT & AUTO 2021-01-29 [facility] Alcides, Kasia [facility] - DIFFERENTIAL 19:08:00 [facility] TRANSFUSE LEUKO-REDUCED RED 2021-01-29 Dilshad Vera Back [facility] - BLOOD CELLS 18:10:59 [facility] POCT-GLUCOSE METER 2021-01-29 Valluri Yuko Nixon [facility] - 18:04:00 [facility] PROTHROMBIN TIME/INR 2021-01-29 Martin Yungbud Back [facility] - 17:57:00 [facility] CT BRAIN WITHOUT IV CONTRAST 2021-01-[address] [facility] - 17:28:00 [facility] CTA BRAIN 2021-01-29 Vera [address]ung [address]anin [facility] - 17:28:00 [facility] APTT 2021-01-[address] [facility] - 15:06:00 [facility] PROTHROMBIN TIME/INR 2021-01-[address] [facility] - 15:06:00 [facility] ABORH, MANUAL 2021-01-[address] [facility] - 13:49:00 [facility] POCT-GLUCOSE METER 2021-01-[address] [facility] - 12:15:00 [facility] CT BRAIN WITHOUT IV CONTRAST 2021-01-[address] [facility] - 09:32:00 [facility] RED BLOOD CELL COUNT 2021-01-[address] [facility] - 09:12:00 [facility] PT/APTT 2021-01-[address] [facility] - 09:12:00 [facility] POCT-GLUCOSE METER 2021-01-[address] [facility] - 07:18:00 [facility] PHOSPHORUS 2021-01-[address] [facility] - 06:11:00 [facility] MAGNESIUM 2021-01-[address] [facility] - 06:11:00 [facility] APTT 2021-01-[address] [facility] - 06:11:00 [facility] BLOOD GAS, ARTERIAL 2021-01-[address] [facility] - 06:11:00 [facility] CALCIUM, IONIZED 2021-01-29 [facility], Luz [facility] - 06:11:00 [facility] LACTIC ACID, ARTERIAL 2021-01-29 Kasia Rubio [facility] - 06:11:00 [facility] OXYGEN SATURATION, MEASURED 2021-01-[address] [facility] - 06:11:00 [facility] CBC W/PLT COUNT & AUTO 2021-01-[address] [facility] - DIFFERENTIAL 06:11:00 [facility] HEPATIC FUNCTION PANEL 2021-01-[address] [facility] - 06:11:00 [facility] DIGOXIN LEVEL 2021-01-[address] [facility] - 06:11:00 [facility] BASIC METABOLIC PANEL (7) 2021-01-[address] [facility] - 06:11:00 [facility] XR CHEST 1 VIEW PORTABLE / 2021-01-[address] [facility] - BED[facility]IDE 00:52:00 [facility] POCT-GLUCOSE METER 2021-01-[address] [facility] - 00:43:00 [facility] Center POCT-GLUCOSE METER 2021-01-28 Valluri, Yuko Alicea [facility] - 18:17:00 [facility] BLOOD GAS, ARTERIAL 2021-01-[address] [facility] - 18:13:00 [facility] Center POTASSIUM 2021-01-[address] [facility] - 18:11:00 [facility] MAGNESIUM 2021-01-[address] [facility] - 18:11:00 [facility] Center PHOSPHORUS 2021-01-[address] [facility] - 18:11:00 [facility] Center SODIUM 2021-01-[address] [facility] - 18:11:00 [facility] Center XR CHEST 1 VIEW PORTABLE / 2021-01-28 [facility]kson [facility] 17:33:00 [facility] HEMODIALYSIS INPATIENT 2021-01-28 Vasile Moran [facility] - 12:55:00 [facility] Center POCT-GLUCOSE METER 2021-01-[address] [facility] - 11:44:00 [facility] BASIC METABOLIC PANEL (7) 2021-01-[address] [facility] - 08:38:00 [facility] Center MAGNESIUM 2021-01-[address] [facility] - 08:38:00 [facility] Center PHOSPHORUS 2021-01-[address] [facility] - 08:38:00 [facility] Center PROTHROMBIN TIME/INR 2021-01-[address] [facility] - 08:36:00 [facility] Center POCT-GLUCOSE METER 2021-01-[address] [facility] - 06:13:00 [facility] POTASSIUM 2021-01-28 Valluana maria, Yuko Nixon [facility] - 04:58:00 [facility] APTT 2021-01-28 Beram, Luz [facility] - 04:58:00 [facility] BLOOD GAS, ARTERIAL 2021-01-28 Beram, Joyceremy [facility] - 04:58:00 [facility] LACTIC ACID, ARTERIAL 2021-01-28 [facility], [facility] 04:58:00 [facility] OXYGEN SATURATION, MEASURED 2021-01-28 [facility], [facility]asia [facility] - 04:58:00 [facility] CBC W/PLT COUNT & AUTO 2021-01-28 [facility], Kasia [facility] - DIFFERENTIAL 04:58:00 [facility] MAGNESIUM 2021-01-28 [facility], Kasia [facility] - 04:58:00 [facility] PHOSPHORUS 2021-01-28 [facility], Kasia [facility] - 04:58:00 [facility] HEPATIC FUNCTION PANEL 2021-01-[address] [facility] - 04:58:00 [facility] PROTHROMBIN TIME/INR 2021-01-[address] [facility] - 04:58:00 [facility] CALCIUM, IONIZED 2021-01-28 Ber, Jessejoe [facility] - 04:57:00 [facility] Center XR CHEST 1 VIEW PORTABLE / 2021-01-28 [facility]ain [facility] - BEDSIDE 03:13:00 [facility] POCT-GLUCOSE METER 2021-01-[address] [facility] - 23:51:00 [facility] POTASSIUM 2021-01-[address] [facility] - 20:43:00 [facility] BLOOD GAS, ARTERIAL 2021-01-27 Uk, Nddorian Bowen [facility] - 20:43:00 [facility] LACTIC ACID, ARTERIAL 2021-01-27 Ukah, Nduka Bowen [facility] - 20:43:00 [facility] Center CBC (HEMOGRAM ONLY) 2021-01-27 [...] Rubio [facility] - 03:31:00 [facility] OXYGEN SATURATION, MEASURED 2021-01-[address] [facility] - 03:31:00 [facility] CBC W/PLT COUNT & AUTO 2021-01-27 Richey Mcgrath, Kasia [facility] - DIFFERENTIAL 03:31:00 [facility] MAGNESIUM 2021-01-27 Richeybulmaro Pickarda, Kasia [facility] - 03:31:00 [facility] PHOSPHORUS 2021-01-27 Kaiden Pickarda, Kasia [facility] - 03:31:00 [facility] HEPATIC FUNCTION PANEL 2021-01-[address] [facility] - 03:31:00 [facility] BLOOD GAS, ARTERIAL 2021-01-27 Beram, Luz [facility] - 03:30:00 [facility] XR CHEST 1 VIEW PORTABLE / 2021-01-27 [facility] Alcides, Kasia [facility] - BEDSIDE 00:45:00 [facility] NM INSERT 2021-01-26 Jes Ramos [facility] - CATH,ART,PERCUT,SHORTTERM 23:51:37 [facility] POCT-GLUCOSE METER 2021-01-26 Valluri, Yuko Lillyk [facility] - 22:02:00 [facility] PHOSPHORUS 2021-01-26 Neagra, Chuckyopher [facility] - 20:28:00 [facility] CALCIUM, IONIZED 2021-01-26 Beram, Jihad [facility] - 20:28:00 [facility] MAGNESIUM 2021-01-26 Beram, Jihad [facility] - 20:28:00 [facility] BASIC METABOLIC PANEL (7) 2021-01-26 [address]athKasia hermosillo [facility] - 20:28:00 [facility] POTASSIUM 2021-01-26 Valluri, Yuko Nixon [facility] - 16:49:00 [facility] POCT-GLUCOSE METER 2021-01-26 Valluri, Sri Nixon [facility] - 16:41:00 [facility] POTASSIUM 2021-01-26 Valluri, Sri Nixon [facility] - 12:13:00 [facility] POCT-GLUCOSE METER 2021-01-26 Valluri, Sri Nixon [facility] - 12:06:00 [facility] PREPARE RBC 2021-01-[address] [facility] - 08:26:00 [facility] PREPARE RBC 2021-01-[address] [facility] - 08:24:00 [facility] MAGNESIUM 2021-01-[address] [facility] [...] Beram, Jihad [facility] - 04:48:00 [facility] Center BLOOD GAS, ARTERIAL 2021-01-26 Beram, Jihad [facility] - 04:04:00 [facility] Center APTT 2021-01-26 Beram, Jessehad [facility] - 04:02:00 [facility] CALCIUM, IONIZED 2021-01-26 Beram, Jihad [facility] - 04:02:00 [facility] Center LACTIC ACID, ARTERIAL 2021-01-26 RicheyKasia Aguirre [facility] - 04:02:00 [facility] OXYGEN SATURATION, MEASURED 2021-01-[address] [facility] - 04:02:00 [facility] CBC W/PLT COUNT & AUTO 2021-01-26 Richey Kasia Mcgrath [facility] - DIFFERENTIAL 04:02:00 [facility] MAGNESIUM 2021-01-26 Richey Mcgrath, Kasia [facility] - 04:02:00 [facility] PHOSPHORUS 2021-01-26 Richey Mcgrath, Kasia [facility] - 04:02:00 [facility] PROTHROMBIN TIME/INR 2021-01-26 Richey Mcgrath, Kasia [facility] - 04:02:00 [facility] DIGOXIN LEVEL 2021-01-[address] [facility] - 04:02:00 [facility] BASIC METABOLIC PANEL (7) 2021-01-[address] [facility] - 04:02:00 [facility] XR CHEST 1 VIEW PORTABLE / 2021-01-[address] [facility] - BEDSIDE 00:20:00 [facility] POCT-GLUCOSE METER 2021-01-25 Valluri, Yuko Alicea [facility] - 21:59:00 [facility] BASIC METABOLIC PANEL (7) 2021-01-[address] [facility] - 20:28:00 [facility] MAGNESIUM 2021-01-25 Beram, Joyceremy [facility] - 20:28:00 [facility] POCT-GLUCOSE METER 2021-01-25 Valluri, Yuko Alicea [facility] - 18:07:00 [facility] XR ABDOMEN / KUB 1 VIEW 2021-01-[address] [facility] - 18:01:00 [facility] POTASSIUM 2021-01-25 Neagra, Rafater [facility] - 16:07:00 [facility] PHOSPHORUS 2021-01-25 Beram, Luz [facility] - 16:07:00 [facility] MAGNESIUM 2021-01-25 Neagra, Christopher [facility] - 16:07:00 [facility] SODIUM 2021-01-25 Neagra, Christopher [facility] - 16:07:00 [facility] Center BLOOD GAS, ARTERIAL 2021-01-25 Beram, Jihad [facility] - 16:07:00 [facility] CBC W/PLT COUNT & AUTO 2021-01-[address] [facility] - DIFFERENTIAL 13:55:00 [facility] POCT-GLUCOSE METER 2021-01-25 Valluri, Yuko Alicea [facility] - 13:20:00 [facility] PHOSPHORUS 2021-01-25 Beram, Jihad [facility] - 11:42:00 [facility] BASIC METABOLIC PANEL (7) 2021-01-[address] [facility] - 11:42:00 [facility] MAGNESIUM 2021-01-25 Neagra, Christopher [facility] - 11:42:00 [facility] Center CALCIUM, IONIZED 2021-01-25 Neagra, Christopher [facility] - 11:42:00 [facility] POCT-GLUCOSE METER 2021-01-[address] [facility] - 08:07:00 [facility] BLOOD GAS, ARTERIAL 2021-01-25 Beram, Jihad [facility] - 03:29:00 [facility] APTT 2021-01-25 Beram, Jihad [facility] - 03:28:00 [facility] Center CALCIUM, IONIZED 2021-01-25 Beram, Jihad [facility] - 03:28:00 [facility] LACTIC ACID, ARTERIAL 2021-01-25 [facility], Kasia [facility] - 03:28:00 [facility] OXYGEN SATURATION, MEASURED 2021-01-25 [facility] - 03:28:00 [facility] CBC W/PLT COUNT & AUTO 2021-01-25 [facility] - DIFFERENTIAL 03:28:00 [facility] BASIC METABOLIC PANEL (7) 2021-01-25 Richey McgrathKasia hermosillo [facility] - 03:28:00 [facility] MAGNESIUM 2021-01-25 Richey Mcgrath, Kasia [facility] - 03:28:00 [facility] PHOSPHORUS 2021-01-25 Richey Mcgrath, Kasia [facility] - 03:28:00 [facility] PROTHROMBIN TIME/INR 2021-01-25 [facility] - 03:28:00 [facility] XR CHEST 1 VIEW PORTABLE / 2021-01-25 Richey McgrathLisbeta [facility] - BEDSIDE 02:31:00 [facility] POCT-GLUCOSE METER 2021-01-25 Yuko Griggs [facility] - 00:13:00 [facility] PREPARE LEUKO-REDUCED 2021-01-24 Chapo Kennedy [facility] - PL[facility]TS 23:55:00 [facility] [place]ASMA 2021-01-[address] [facility] - 23:55:00 [facility] PREPARE PLATELETS 2021-01-24 Trey Galvez [facility] - 23:55:00 [facility] PREPARE PLASMA 2021-01-[address] [facility] - 23:54:00 [facility]PARE RBC 2021-01-[address] [facility] - 23:54:00 [facility] PREPARE LEUKO-REDUCED 2021-01-[address] [facility] - PLATELETS 23:54:00 [facility] SODIUM NA-STAT LAB 2021-01-[address] [facility] - 21:42:00 [facility] POTASSIUM-STAT LAB 2021-01-[address] [facility] - 21:42:00 [facility] GLUCOSE-STAT LAB 2021-01-[address] [facility] - 21:42:00 [facility] HGB/HCT (H&H) - STAT LAB 2021-01-[address] [facility] - 21:42:00 [facility] BLOOD GAS, ARTERIAL 2021-01-[address] [facility] - 21:41:00 [facility] PHOSPHORUS 2021-01-24 Beram, Luz [facility] - 18:16:00 [facility] BASIC METABOLIC PANEL (7) 2021-01-[address] [facility] - 18:16:00 [facility] MAGNESIUM 2021-01-24 Beram, Luz [facility] - 18:16:00 [facility] CBC W/PLT COUNT & AUTO 2021-01-[address] [facility] - DIFFERENTIAL 12:21:00 [facility] PHOSPHORUS 2021-01-24 Beram, Jihad [facility] - 10:25:00 [facility] POTASSIUM 2021-01-24 Beram, Jihad [facility] - 10:25:00 [facility] Center MAGNESIUM 2021-01-24 Beram, Jihad [facility] - 10:25:00 [facility] BLOOD GAS, ARTERIAL 2021-01-24 Beram, Jihad [facility] - 10:25:00 [facility] POCT-GLUCOSE METER 2021-01-[address] [facility] - 08:56:00 [facility] APTT 2021-01-24 Beram, Jessesabinoremy [facility] - 03:18:00 [facility] BLOOD GAS, ARTERIAL 2021-01-24 Beram, Jihad [facility] - 03:18:00 [facility] CALCIUM, IONIZED 2021-01-24 Beram, Jihad [facility] - 03:18:00 [facility] LACTIC ACID, ARTERIAL 2021-01-24 [facility], Kasia [facility] - 03:18:00 [facility] OXYGEN SATURATION, MEASURED 2021-01-24 [facility], Kasia [facility] - 03:18:00 [facility] BASIC METABOLIC PANEL (7) 2021-01-24 [facility] - 03:18:00 [facility] MAGNESIUM 2021-01-24 [facility], Kasia [facility] - 03:18:00 [facility] PHOSPHORUS 2021-01-24 [facility], Kasia [facility] - 03:18:00 [facility] PROTHROMBIN TIME/INR 2021-01-24 [facility], Kasia [facility] - 03:18:00 [facility] CBC W/PLT COUNT & AUTO 2021-01-[address] [facility] - DIFFERENTIAL 03:18:00 [facility] HEPATIC FUNCTION PANEL 2021-01-[address] [facility] - 03:18:00 [facility] XR CHEST 1 VIEW PORTABLE / 2021-01-24 [facility] - BED[facility] 01:39:00 [facility] CBC W/PLT COUNT & AUTO 2021-01-[address] [facility] - DIFFERENTIAL 00:31:00 [facility] BLOOD GAS, ARTERIAL 2021-01-24 Beaver, Uselyn [facility] - 00:31:00 [facility] LACTIC ACID, ARTERIAL 2021-01-24 Beaver, Usejosiah [facility] - 00:31:00 [facility] PREPARE LEUKO-REDUCED RBC 2021-01-23 Elin Vasquez [facility] - 23:54:00 [facility] PREPARE RBC 2021-01-[address] [facility] - 23:54:00 [facility] TRANSFUSE LEUKO-REDUCED RED 2021-01-23 Beaver, Uselyn [facility] - BLOOD CELLS 23:42:34 [facility] POCT-GLUCOSE METER 2021-01-[address] [facility] [facility] - 23:10:00 [facility] TRANSFUSE PLASMA 2021-01-23 Jeanette, Zaira [facility] - 21:55:06 [facility] BASIC METABOLIC PANEL (7) 2021-01-[address] [facility] - 21:26:00 [facility] PROTHROMBIN TIME/INR 2021-01-[address] [facility] - 21:26:00 [facility] APTT 2021-01-23 Beaver, Uselyn [facility] - 21:26:00 [facility] FIBRINOGEN 2021-01-23 Beaver, Uselyn [facility] - 21:26:00 [facility] MAGNESIUM 2021-01-23 Beaver, Uselyn [facility] - 21:26:00 [facility] PHOSPHORUS 2021-01-23 Beaver, Uselyn [facility] - 21:26:00 [facility] CALCIUM, IONIZED 2021-01-23 Beaver, Uselyn [facility] - 21:26:00 [facility] CBC W/PLT COUNT & AUTO 2021-01-23 Beaver, Uselyn [facility] - DIFFERENTIAL 21:26:00 [facility] BLOOD GAS, ARTERIAL 2021-01-23 Beaver, Uselyn [facility] - 21:26:00 [facility] TRANSFUSE LEUKO-REDUCED 2021-01-23 Jeanette, Zaira [facility] - PLATELETS 20:46:34 [facility] TRANSFUSE LEUKO-REDUCED RED 2021-01-23 Richey Kasia Mcgrath [facility] - BLOOD CELLS 19:36:37 [facility] POCT-GLUCOSE METER 2021-01-[address] [facility] - 18:47:00 [facility] CBC W/PLT COUNT & AUTO 2021-01-[address] Richey McgrathKasia cain [facility] - DIFFERENTIAL 17:47:00 [facility] OXYGEN SATURATION, MEASURED 2021-01-[address] [facility] - 17:43:00 [facility] XR CHEST 1 VIEW PORTABLE / 2021-01-23 Richeybulmaro PickardKasia cain [facility] - BEDSIDE 15:54:00 [facility] BLOOD GAS, ARTERIAL 2021-01-23 Richeybulmaro Mcgrath, Kasia [facility] - 15:50:00 [facility] CBC W/PLT COUNT & AUTO 2021-01-23 [facility] McgrathKasia [facility] - DIFFERENTIAL 15:48:00 [facility] COMPREHENSIVE METABOLIC 2021-01-[address] [facility] - PANEL 15:48:00 [facility] MAGNESIUM 2021-01-[address] [facility] - 15:48:00 [facility] PHOSPHORUS 2021-01-[address] [facility] - 15:48:00 [facility] LACTIC ACID, ARTERIAL 2021-01-23 [facility] McgrathKasia [facility] - 15:48:00 [facility] BLOOD GAS, ARTERIAL 2021-01-[address] [facility] - 15:48:00 [facility] PROTHROMBIN TIME/INR 2021-01-[address] [facility] - 15:48:00 [facility] APTT 2021-01-[address] [facility] - 15:48:00 [facility] FIBRINOGEN 2021-01-[address] [facility] - 15:48:00 [facility] SODIUM NA-STAT LAB 2021-01-[address] [facility] - 15:48:00 [facility] POTASSIUM-STAT LAB 2021-01-23 [facility] McgrathKasia [facility] - 15:48:00 [facility] GLUCOSE-STAT LAB 2021-01-[address] [facility] - 15:48:00 [facility] HGB/HCT (H&H) - STAT LAB 2021-01-[address] [facility] - 15:48:00 [facility] TRANSFUSE PLASMA 2021-01-23 Royalnanci, Alyce [facility] - 14:22:50 [facility] TRANSFUSE LEUKO-REDUCED 2021-01-[address] [facility] - PLATELETS 14:17:35 [facility] TRANSFUSE PLASMA 2021-01-23 Royalnanci, Alyce [facility] - 14:16:35 [facility] BLOOD GAS, ARTERIAL 2021-01-23 Prasanna, Alyce [facility] - 13:33:39 [facility] CALCIUM, IONIZED 2021-01-23 Royalnanci, Alyce [facility] - 13:33:39 [facility] APTT 2021-01-23 Prasanna, Alyce [facility] - 13:33:39 [facility] PROTHROMBIN TIME/INR 2021-01-[address] [facility] - 13:33:39 [facility] FIBRINOGEN 2021-01-23 Royalnanci, Alyce [facility] - 13:33:39 [facility] PLATELET COUNT 2021-01-23 Prasanna, Alyce [facility] - 13:33:39 [facility] SODIUM NA-STAT LAB 2021-01-[address] [facility] - 13:33:39 [facility] POTASSIUM-STAT LAB 2021-01-23 Royalnanci, Alyce [facility] - 13:33:39 [facility] GLUCOSE-STAT LAB 2021-01-23 Royalnanci, Alyce [facility] - 13:33:39 [facility] HGB/HCT (H&H) - STAT LAB 2021-01-23 [facility]ims [facility] - 13:33:39 [facility] TRANSFUSE PLASMA 2021-01-23 [facility] 13:18:07 [facility] [place]SFUSE LEUKO-REDUCED 2021-01-[address] [facility] - [place] 13:14:42 [facility] EXPLORATION,MEDIASTINAL 2021-01-[address] [facility] - 12:39:00 [facility] TRANSFUSE LEUKO-REDUCED 2021-01-[address] [facility] - PL[facility]LETS 11:04:16 [facility] POCT-GLUCOSE METER 2021-01-[address] [facility] - 09:50:00 [facility] TRANSFUSE PLASMA 2021-01-[address] [facility] - 09:36:12 [facility] PHOSPHORUS 2021-01-23 Beram, Jessesabinoremy [facility] - 09:32:00 [facility] CBC (HEMOGRAM ONLY) 2021-01-23 Beram, Luz [facility] - 09:32:00 [facility] MAGNESIUM 2021-01-23 Beram, Luz [facility] - 09:32:00 [facility] LACTIC ACID, ARTERIAL 2021-01-[address] [facility] [facility] - 04:04:00 [facility] XR CHEST 1 VIEW PORTABLE / 2021-01-23 [facility] 03:53:00 [facility] BLOOD GAS, ARTERIAL 2021-01-23 Zhaoam, Luz [facility] - 03:49:00 [facility] OXYGEN SATURATION, MEASURED 2021-01-[address] [facility] - 03:49:00 [facility] APTT 2021-01-23 Bob, Luz [facility] - 03:48:00 [facility] CBC W/PLT COUNT & AUTO 2021-01-[address] [facility] - DIFFERENTIAL 03:48:00 [facility] PROTHROMBIN TIME/INR 2021-01-[address] [facility] - 03:48:00 [facility] MAGNESIUM 2021-01-[address] [facility] - 03:48:00 [facility] PHOSPHORUS 2021-01-[address] [facility] - 03:48:00 [facility] CALCIUM, IONIZED 2021-01-23 Zhaoam, Luz [facility] - 03:48:00 [facility] BASIC METABOLIC PANEL (7) 2021-01-23 Jes Ramos [facility] - 03:48:00 [facility] Center (CELLAVISION MANUAL DIFF) 2021-01-23 Jes Ramos [facility] - 03:48:00 [facility] TRANSFUSE LEUKO-REDUCED RED 2021-01-[address] [facility] - BLOOD CELLS 01:18:21 [facility] LACTIC ACID, ARTERIAL 2021-01-[address] [facility] - 00:14:00 [facility] MAGNESIUM 2021-01-23 Beram, Jessesabinoremy [facility] - 00:14:00 [facility] CALCIUM, IONIZED 2021-01-23 Beram, Jihad [facility] - 00:14:00 [facility] BLOOD GAS, ARTERIAL 2021-01-23 Beram, Jisabinod [facility] - 00:14:00 [facility] BASIC METABOLIC PANEL (7) 2021-01-23 Jes Ramos [facility] 00:14:00 [facility] TRANSFUSE LEUKO-REDUCED RED 2021-01-[address] [facility] - BLOOD CELLS 21:28:48 [facility] BLOOD GAS, ARTERIAL 2021-01-22 Zhao, Luz [facility] - 20:16:00 [facility] CBC (HEMOGRAM ONLY) 2021-01-[address] [facility] - 20:15:00 [facility] LACTIC ACID, ARTERIAL 2021-01-22 El[facility] Vasquez [facility] 20:14:00 [facility] OXYGEN SATURATION, MEASURED 2021-01-22 Elin Vasquez [facility] - 20:14:00 [facility] SODIUM NA-STAT LAB 2021-01-[address] [facility] - 20:14:00 [facility] POTASSIUM-STAT LAB 2021-01-[address] [facility] - 20:14:00 [facility] GLUCOSE-STAT LAB 2021-01-[address] [facility] - 20:14:00 [facility] HGB/HCT (H&H) - STAT LAB 2021-01-22 [facility] 20:14:00 [facility] PHOSPHORUS 2021-01-[address] [facility] - 20:14:00 [facility] PROTHROMBIN TIME/INR 2021-01-22 Ramos, Jes [facility] - 20:14:00 [facility] APTT 2021-01-[address] [facility] - 20:14:00 [facility] FIBRINOGEN 2021-01-22 Ramos, Jes [facility] - 20:14:00 [facility] TRANSFUSE LEUKO-REDUCED RED 2021-01-22 [facility] BLOOD CELLS 19:33:22 [facility] CT CHEST WITH IV CONTRAST 2021-01-22 [facility] 19:16:00 [facility] CT ABDOMEN/PELVIS WITH IV 2021-01-22 Elin Vasquez [facility] - CONTRAST 19:16:00 [facility] BLOOD GAS, ARTERIAL 2021-01-22 Elin Vasquez [facility] - 18:20:00 [facility] XR CHEST 1 VIEW PORTABLE / 2021-01-22 Elin Vasquez [facility] - BEDSIDE 17:57:00 [facility] POCT-GLUCOSE METER 2021-01-[address] [facility] - 16:31:00 [facility] PREPARE PLASMA 2021-01-22 Elin Vasquez [facility] - 14:56:00 [facility] BLOOD GAS, ARTERIAL 2021-01-22 Elin Vasquez [facility] - 14:41:00 [facility] POCT-GLUCOSE METER 2021-01-22 Ca [facility] - 14:21:00 [facility] OXYGEN SATURATION, MEASURED 2021-01-22 Elin Vasquez [facility] - 13:58:00 [facility] POCT-GLUCOSE METER 2021-01-[address] [facility] - 13:57:00 [facility] SODIUM NA-STAT LAB 2021-01-22 [facility]quez [facility] 13:56:00 [facility] POTASSIUM-STAT LAB 2021-01-22 Elin Vasquez [facility] - 13:56:00 [facility] GLUCOSE-STAT LAB 2021-01-22 Elin Vasquez [facility] - 13:56:00 [facility] HGB/HCT (H&H) - STAT LAB 2021-01-[address] [facility] - 13:56:00 [facility] CALCIUM, IONIZED 2021-01-22 Pedro, Elin [facility] - 13:56:00 [facility] CBC W/PLT COUNT & AUTO 2021-01-22 Elin Vasquez [facility] - DIFFERENTIAL 13:56:00 [facility] BLOOD GAS, ARTERIAL 2021-01-22 Pedro, [facility] - 13:56:00 [facility] (CELLAVISION MANUAL DIFF) 2021-01-22 [facility] 13:56:00 [facility] LACTIC ACID, ARTERIAL 2021-01-[address] [facility] - 13:55:00 [facility] BASIC METABOLIC PANEL (7) 2021-01-22 [facility] 13:55:00 [facility] MAGNESIUM 2021-01-[address] [facility] - 13:55:00 [facility] PHOSPHORUS 2021-01-[address] [facility] [facility] - 13:55:00 [facility] PROTHROMBIN TIME/INR 2021-01-[address] [facility] - 13:54:00 [facility] [facility] APTT 2021-01-22 Jaswinder Vasquezloni [facility] - 13:54:00 [facility] FIBRINOGEN 2021-01-22 Jaswinder Vasquezloni [facility] - 13:54:00 [facility] POCT-GLUCOSE METER 2021-01-22 Ca Nolan [facility] - 13:23:00 [facility] BLOOD GAS, ARTERIAL 2021-01-[address] [facility] - 12:04:00 [facility] POCT-GLUCOSE METER 2021-01-22 Ca Nolan [facility] - 11:45:00 [facility] TRANSFUSE LEUKO-REDUCED RED 2021-01-22 Elin Vasquez [facility] - BLOOD CELLS 11:30:51 [facility] POCT-GLUCOSE METER 2021-01-22 Ca Nolan [facility] - 11:19:00 [facility] POCT-GLUCOSE METER 2021-01-22 [facility], Ca DominguezJennifer [facility] - 11:06:00 [facility] POCT-GLUCOSE METER 2021-01-22 [facility], Ca Irizarry [facility] - 10:55:00 [facility] POCT-GLUCOSE METER 2021-01-22 [facility], Ca AngelicaJennifer [facility] - 10:48:00 [facility] 2D ECHO W/ DOPPLER 2021-01-22 Jes Ramos [facility] - (CW/PW/COLOR) 10:39:48 [facility] LACTIC ACID, ARTERIAL 2021-01-22 Elin Vasquez [facility] - 10:36:00 [facility] OXYGEN SATURATION, MEASURED 2021-01-22 Elin Vasquez [facility] - 10:36:00 [facility] SODIUM NA-STAT LAB 2021-01-22 Elin Vasquez [facility] - 10:36:00 [facility] POTASSIUM-STAT LAB 2021-01-22 Elin Vasquez [facility] - 10:36:00 [facility] GLUCOSE-STAT LAB 2021-01-[address] [facility] - 10:36:00 [facility] HGB/HCT (H&H) - STAT LAB 2021-01-22 Elin Vasquez [facility] - 10:36:00 [facility] TRANSFUSE LEUKO-REDUCED RED 2021-01-22 Jes Ramos [facility] - BLOOD CELLS 09:58:57 [facility] CONTINUOUS VENOVENOUS 2021-01-22 [facility], Luz [facility] - HEMODIALYSIS 09:18:10 [facility] APTT 2021-01-22 [facility], Luz [facility] - 09:13:00 [facility] XR CHEST 1 VIEW PORTABLE / 2021-01-22 Elin Vasquez [facility] - BEDSIDE 08:57:00 [facility] LACTIC ACID, ARTERIAL 2021-01-22 Elin Vasquez [facility] - 08:09:00 [facility] OXYGEN SATURATION, MEASURED 2021-01-22 Elin Vasquez [facility] - 08:09:00 [facility] SODIUM NA-STAT LAB 2021-01-[address] [facility] - 08:09:00 [facility] POTASSIUM-STAT LAB 2021-01-22 Pedro, Elin [facility] - 08:09:00 [facility] GLUCOSE-STAT LAB 2021-01-22 Pedro, Elin [facility] - 08:09:00 [facility] HGB/HCT (H&H) - STAT LAB 2021-01-[address] [facility] - 08:09:00 [facility] BLOOD GAS, ARTERIAL 2021-01-22 Pedro, [facility] - 08:09:00 [facility] APTT 2021-01-[address] [facility] - 07:42:00 [facility] XR CHEST 1 VIEW PORTABLE / 2021-01-[address] [facility] - BEDSIDE 07:08:00 [facility] HEMOGLOBIN AND HEMATOCRIT 2021-01-22 [facility] - 06:37:00 [facility] BASIC METABOLIC PANEL (7) 2021-01-22 [facility] - 06:35:00 [facility] CALCIUM, IONIZED 2021-01-[address] [facility] - 06:35:00 [facility] PROTHROMBIN TIME/INR 2021-01-[address] [facility] - 06:35:00 [facility] APTT 2021-01-[address] [facility] - 06:35:00 [facility] FIBRINOGEN 2021-01-[address] [facility] - 06:35:00 [facility] B-TYPE NATRIURETIC FACTOR 2021-01-22 Jes [facility] - (BNP) 06:35:00 [facility] HEPATIC FUNCTION PANEL 2021-01-[address] [facility] - 06:35:00 [facility] MAGNESIUM 2021-01-[address] [facility] - 06:35:00 [facility] [place] PHOSPHORUS 2021-01-[address] [facility] - 06:35:00 [facility] LACTIC ACID, ARTERIAL 2021-01-[address] [facility] - 06:31:00 [facility] BLOOD GAS, ARTERIAL 2021-01-[address] [facility] - 06:31:00 [facility] OXYGEN SATURATION, MEASURED 2021-01-[address] [facility] - 06:30:00 [facility] TYPE AND SCREEN, AUTOMATED 2021-01-[address] [facility] - 04:55:00 [facility] BLOOD GAS, ARTERIAL 2021-01-22 Zhaoam, Luz [facility] - 02:28:00 [facility] CBC W/PLT COUNT & AUTO 2021-01-[address] [facility] - DIFFERENTIAL 02:28:00 [facility] PROTHROMBIN TIME/INR 2021-01-[address] [facility] - 02:28:00 [facility] MAGNESIUM 2021-01-[address] [facility] - 02:28:00 [facility] PHOSPHORUS 2021-01-[address] [facility] - 02:28:00 [facility] CALCIUM, IONIZED 2021-01-22 Bob, Luz [facility] - 02:28:00 [facility] LACTIC ACID, ARTERIAL 2021-01-[address] [facility] - 02:28:00 [facility] BASIC METABOLIC PANEL (7) 2021-01-22 Nanette [facility]azael [facility] - 02:28:00 [facility] OXYGEN SATURATION, MEASURED 2021-01-[address] [facility] - 02:28:00 [facility] XR CHEST 1 VIEW PORTABLE / 2021-01-22 Leonidas [facility]campo [facility] - B[facility] 01:25:00 [facility] APTT 2021-01-[address] [facility] - 01:11:00 [facility] PREPARE LEUKO-REDUCED RBC 2021-01-21 [facility] - 23:54:00 [facility] HEMOGLOBIN AND HEMATOCRIT 2021-01-21 [facility] - 22:41:00 [facility] APTT 2021-01-[address] [facility] - 22:41:00 [facility] ECG 12-LEAD 2021-01-21 Unknown, Hl7 Doctor [facility] - 22:11:18 [facility] POCT-GLUCOSE METER 2021-01-21 An Ca T[address] [facility] - 21:40:00 [facility] BASIC METABOLIC PANEL (7) 2021-01-21 Omi, Omar [facility] - 21:32:00 [facility] PHOSPHORUS 2021-01-21 Omi, Omar [facility] - 21:32:00 [facility] MAGNESIUM 2021-01-21 Omi, Omar [facility] - 21:32:00 [facility] BLOOD GAS, ARTERIAL 2021-01-[address] [facility] - 18:59:00 [facility] POCT-GLUCOSE METER 2021-01-[address] [facility] - 18:23:00 [facility] PT/APTT 2021-01-[address] [facility] - 17:17:00 [facility] POCT-GLUCOSE METER 2021-01-[address] [facility] - 12:07:00 [facility] BLOOD GAS, ARTERIAL 2021-01-[address] [facility] - 11:50:00 [facility] PT/APTT 2021-01-[address] [facility] - 11:49:00 [facility] MAGNESIUM 2021-01-[address] [facility] - 09:06:00 [facility] PHOSPHORUS 2021-01-[address] [facility] - 09:06:00 [facility] POTASSIUM 2021-01-[address] [facility] - 09:06:00 [facility] POCT-GLUCOSE METER 2021-01-21 Ca Nolan [address] [facility] - 08:39:00 [facility] PH, ARTERIAL 2021-01-[address] [facility] - 08:18:00 [facility] XR CHEST 1 VIEW PORTABLE / 2021-01-21 Leonidas Ocampo [facility] - BEDSIDE 03:14:00 [facility] BLOOD GAS, ARTERIAL 2021-01-[address] [facility] - 03:10:00 [facility] CALCIUM, IONIZED 2021-01-[address] [facility] - 03:10:00 [facility] CBC W/PLT COUNT & AUTO 2021-01-21 Taye Villatoro [facility] - DIFFERENTIAL 03:09:00 [facility] MAGNESIUM 2021-01-[address] [facility] - 03:09:00 [facility] APTT 2021-01-[address] [facility] - 03:09:00 [facility] HEPATIC FUNCTION PANEL 2021-01-21 Ara Cox [facility] - 03:09:00 [facility] PROTHROMBIN TIME/INR 2021-01-21 Jerry Candice [facility] - 03:09:00 [facility] BASIC METABOLIC PANEL (7) 2021-01-[address] [facility] - 03:09:00 [facility] PREPARE LEUKO-REDUCED RBC 2021-01-20 Cami Al [facility] - 23:54:00 [facility] POCT-GLUCOSE METER 2021-01-[address] [facility] - 23:46:00 [facility] POTASSIUM 2021-01-[address] [facility] - 21:38:00 [facility] MAGNESIUM 2021-01-[address] [facility] - 21:38:00 [facility] PH, ARTERIAL 2021-01-20 Jarod, Jingyin [facility] - 21:38:00 [facility] PHOSPHORUS 2021-01-[address] [facility] - 21:38:00 [facility] Center POTASSIUM 2021-01-[address] [facility] - 18:19:00 [facility] POCT-GLUCOSE METER 2021-01-[address] Ca Nolan [address] [facility] - 18:08:00 [facility] IR TUNNELED CATHETER 2021-01-20 Neptali Vargas [facility] - INSERTION 17:08:00 [facility] TRANSFUSE LEUKO-REDUCED RED 2021-01-[address] [facility] - BLOOD CELLS 13:47:22 [facility] POTASSIUM 2021-01-[address] [facility] - 13:16:00 Medical [...] Jarod, Sadi [facility] - 09:07:00 [facility] BLOOD GAS, ARTERIAL 2021-01-20 Bob, Luz [facility] - 03:49:00 [facility] CBC W/PLT COUNT & AUTO 2021-01-20 Taye Villatoro [facility] - DIFFERENTIAL 03:48:00 [facility] MAGNESIUM 2021-01-[address] [facility] - 03:48:00 [facility] CALCIUM, IONIZED 2021-01-[address] [facility] - 03:48:00 [facility] PROTHROMBIN TIME/INR 2021-01-[address] [facility] - 03:48:00 [facility] BASIC METABOLIC PANEL (7) 2021-01-20 Jarod, Sadi [facility] - 03:48:00 [facility] HEPATIC FUNCTION PANEL 2021-01-[address] [facility] - 03:48:00 [facility] APTT 2021-01-20 Zhaotoro, Luz [facility] - 02:04:00 [facility] XR CHEST 1 VIEW PORTABLE / 2021-01-20 Leonidas Ocampo [facility] - BEDSIDE 01:18:00 [facility] POTASSIUM 2021-01-[address] [facility] - 00:38:00 [facility] POCT-GLUCOSE METER 2021-01-[address] [facility] - 00:20:00 [facility] HEMOGLOBIN AND HEMATOCRIT 2021-01-20 Jes Ramos [facility] - 00:19:00 [facility] TRANSFUSE LEUKO-REDUCED RED 2021-01-[address] [facility] - BLOOD CELLS 22:29:21 [facility] PH, ARTERIAL 2021-01-[address] [...] Candice Edwards [facility] - 17:12:00 [facility] CBC W/PLT COUNT & AUTO 2021-01-[address] [facility] - DIFFERENTIAL 17:12:00 [facility] POCT-GLUCOSE METER 2021-01-[address] [facility] - 11:39:00 [facility] POTASSIUM 2021-01-[address] [facility] - 11:24:00 [facility] Center PT/APTT 2021-01-[address] [facility] - 11:24:00 [facility] PHOSPHORUS 2021-01-[address] [facility] - 08:49:00 [facility] BLOOD GAS, ARTERIAL 2021-01-[address] [facility] - 08:49:00 [facility] POCT-GLUCOSE METER 2021-01-[address] [facility] - 06:23:00 [facility] Center HEMOGLOBIN AND HEMATOCRIT 2021-01-[address] [facility] - 05:41:00 [facility] CBC W/PLT COUNT & AUTO 2021-01-[address] [facility] - DIFFERENTIAL 05:41:00 [facility] Center BLOOD GAS, ARTERIAL 2021-01-19 Beram, Jihad [facility] - 03:47:00 [facility] CBC W/PLT COUNT & AUTO 2021-01-[address] [facility] - DIFFERENTIAL 03:46:00 [facility] MAGNESIUM 2021-01-[address] [facility] - 03:46:00 [facility] APTT 2021-01-[address] [facility] - 03:46:00 [facility] COMPREHENSIVE METABOLIC 2021-01-[address] [facility] - PANEL 03:46:00 [facility] CALCIUM, IONIZED 2021-01-[address] [facility] - 03:46:00 [facility] HEPATIC FUNCTION PANEL 2021-01-[address] [facility] - 03:46:00 [facility] PROTHROMBIN TIME/INR 2021-01-[address] [facility] - 03:46:00 [facility] (CELLAVISION MANUAL DIFF) 2021-01-[address] [facility] - 03:46:00 [facility] XR CHEST 1 VIEW PORTABLE / 2021-01-19 Leonidas [facility]campo [facility] - B[facility]IDE 01:50:00 [facility] XR ABDOMEN / KUB 1 VIEW 2021-01-[address] [facility] - 01:50:00 [facility] POCT-GLUCOSE METER 2021-01-[address] [facility] - 01:38:00 [facility] POCT-GLUCOSE METER 2021-01-19 Ca [facility] - 00:22:00 [facility] PREPARE PLASMA 2021-01-[address] [facility] - 23:55:00 [facility] PREPARE LEUKO-REDUCED RBC 2021-01-18 [facility]in [facility] - 23:55:00 [facility] POTASSIUM 2021-01-[address] [facility] - 20:05:00 [facility] MAGNESIUM 2021-01-[address] [facility] - 20:05:00 [facility] PH, ARTERIAL 2021-01-[address] [facility] - 20:05:00 [facility] PHOSPHORUS 2021-01-[address] [facility] - 20:05:00 [facility] Center HEMOGLOBIN AND HEMATOCRIT 2021-01-18 Jes [facility] - 20:05:00 [facility] POCT-GLUCOSE METER 2021-01-18 Kendrickkluis Ca T. [facility] - 17:48:00 [facility] POTASSIUM 2021-01-[address] [facility] - 15:40:00 [facility] POTASSIUM 2021-01-[address] [facility] - 12:28:00 [facility] POCT-GLUCOSE METER 2021-01-18 [place], Ca T. [facility] - 12:28:00 [facility] XR CHEST 1 VIEW PORTABLE / 2021-01-18 Estef[address]willi[address] [facility] - BEDSIDE 08:24:00 [facility] POTASSIUM 2021-01-[address] [facility] - 08:09:00 [facility] MAGNESIUM 2021-01-[address] [facility] - 08:09:00 [facility] PHOSPHORUS 2021-01-[address] [facility] - 08:09:00 [facility] HEMOGLOBIN AND HEMATOCRIT 2021-01-18 Jes Ramos [facility] - 04:31:00 [facility] BLOOD GAS, ARTERIAL 2021-01-[address] [facility] - 03:20:00 [facility] SARS-COV2/RT-PCR (HS & REF 2021-01-[address] [facility] - LABS) 03:16:00 [facility] CBC W/PLT COUNT & AUTO 2021-01-[address] [facility] - DIFFERENTIAL 03:13:00 [facility] MAGNESIUM 2021-01-[address] [facility] - 03:13:00 [facility] APTT 2021-01-[address] [facility] - 03:13:00 [facility] COMPREHENSIVE METABOLIC 2021-01-[address] [facility] - PANEL 03:13:00 [facility] PROTHROMBIN TIME/INR 2021-01-[address] [facility] - 03:13:00 [facility] Center LACTIC ACID, ARTERIAL 2021-01-[address] [facility] - 03:13:00 [facility] POCT-GLUCOSE METER 2021-01-[address] [facility] - 01:05:00 [facility] XR CHEST 1 VIEW PORTABLE / 2021-01-18 Leonidas Ocampo [facility] - BEDSIDE 00:21:00 [facility] PREPARE LEUKO-REDUCED RBC 2021-01-17 Jes Ramos [facility] - 23:55:00 [facility] HEMOGLOBIN AND HEMATOCRIT 2021-01-17 Jes Ramos [facility] - 19:55:00 [facility] POTASSIUM 2021-01-[address] [facility] - 19:49:00 [facility] MAGNESIUM 2021-01-[address] [facility] - 19:49:00 [facility] PH, ARTERIAL 2021-01-17 Jarod, Sadi [facility] - 19:49:00 [facility] PHOSPHORUS 2021-01-[address] [facility] - 19:49:00 [facility] TRANSFUSE LEUKO-REDUCED RED 2021-01-[address] [facility] - BLOOD CELLS 19:14:33 [facility] POCT-GLUCOSE METER 2021-01-[address] [facility] - 18:19:00 [facility] PROTHROMBIN TIME/INR 2021-01-[address] [facility] - 14:41:00 [facility] APTT 2021-01-[address] [facility] - 14:41:00 [facility] FIBRINOGEN 2021-01-[address] [facility] - 14:41:00 [facility] PLATELET COUNT 2021-01-[address] [facility] - 14:41:00 [facility] HEMOGLOBIN AND HEMATOCRIT 2021-01-[address] [facility] - 14:06:00 [facility] POCT-GLUCOSE METER 2021-01-[address] [facility] - 12:31:00 [facility] XR ABDOMEN / KUB 1 VIEW 2021-01-[address] [facility] - 12:11:00 [facility] POTASSIUM 2021-01-17 Jarod, Sadi [facility] - 11:43:00 [facility] TRANSFUSE PLASMA 2021-01-17 Ara Cox [facility] - 11:34:18 [facility] POTASSIUM 2021-01-17 Jarod, Sadi [facility] - 07:59:00 [facility] MAGNESIUM 2021-01-17 Jarod, Sadi [facility] - 07:59:00 [facility] PH, ARTERIAL 2021-01-17 Jarod, Edelin [facility] - 07:59:00 [facility] PHOSPHORUS 2021-01-17 [facility], [facility] - 07:59:00 [facility] HEMOGLOBIN AND HEMATOCRIT 2021-01-17 Ara Cox [facility] - 07:59:00 [facility] LACTIC ACID, ARTERIAL 2021-01-17 Ara Cox [facility] - 04:08:00 [facility] CBC W/PLT COUNT & AUTO 2021-01-17 Taye Villatoro [facility] - DIFFERENTIAL 04:08:00 [facility] MAGNESIUM 2021-01-17 Taye Villatoro [facility] - 04:08:00 [facility] APTT 2021-01-17 Jesse Rojassabinoremy [facility] - 04:08:00 [facility] COMPREHENSIVE METABOLIC 2021-01-17 Ara Cox [facility] - PANEL 04:08:00 [facility] HEPATIC FUNCTION PANEL 2021-01-17 Jes Ramos [facility] - 04:08:00 [facility] BLOOD GAS, ARTERIAL 2021-01-17 Jesse Rojassabinoremy [facility] - 04:08:00 [facility] PROTHROMBIN TIME/INR 2021-01-17 Candice Edwards [facility] - 04:08:00 [facility] TYPE AND SCREEN, AUTOMATED 2021-01-17 Jes Ramos [facility] - 04:08:00 [facility] (CELLAVISION MANUAL DIFF) 2021-01-17 Taye Villatoro [facility] - 04:08:00 [facility] TRANSFUSE LEUKO-REDUCED RED 2021-01-[address] [facility] - BLOOD CELLS 03:55:34 [facility] POCT-GLUCOSE METER 2021-01-[address] [facility] - 03:32:00 [facility] XR CHEST 1 VIEW PORTABLE / 2021-01-17 Leonidas Ocampo [facility] - [facility] 00:37:00 [facility] POTASSIUM 2021-01-16 Jarod, Jinarias [facility] - 23:11:00 [facility] PROTHROMBIN TIME/INR 2021-01-16 Ramos, Jes [facility] - 23:11:00 [facility] APTT 2021-01-16 Ramos, Jes [facility] - 23:11:00 [facility] FIBRINOGEN 2021-01-16 Ramos, Jes [facility] - 23:11:00 [facility] POCT-GLUCOSE METER 2021-01-16 [place], Ca Irizarry [facility] - 22:09:00 [facility] TRANSFUSE LEUKO-REDUCED RED 2021-01-[address] [facility] - BLOOD CELLS 20:31:58 [facility] LACTIC ACID, ARTERIAL 2021-01-16 [...] Ara Cox [facility] - 18:23:00 [facility] BLOOD CULTURE 2021-01-[address] [facility] - 18:11:00 [facility] TRANSFUSE LEUKO-REDUCED RED 2021-01-[address] [facility] - BLOOD CELLS 18:01:26 [facility] BLOOD GAS, ARTERIAL 2021-01-16 Kenny, Ara Magdaleno [facility] - 17:03:00 [facility] LACTIC ACID, ARTERIAL 2021-01-16 Kenny, Ara Sharla [facility] - 17:02:00 [facility] SPUTUM CULTURE + GRAM STAIN 2021-01-16 Kenny, [facility] - 17:02:00 [facility] NM INSERT 2021-01-[address] [facility] - CATH,ART,PERCUT,SHORTTERM 16:45:00 [facility] XR CHEST 1 VIEW PORTABLE / 2021-01-[address] - BEDSIDE 16:18:00 [facility] PREPARE PLASMA 2021-01-16 Kenny, [facility] Magdaleno [facility] - 16:15:00 [facility] XR CHEST 1 VIEW PORTABLE / 2021-01-16 Demetrius Burgess [facility] - BEDSIDE 15:43:00 [facility] BLOOD GAS, ARTERIAL 2021-01-16 Kenny, Ara Magdaleno [facility] - 15:41:00 [facility] BLOOD GAS, ARTERIAL 2021-01-16 Kenny, Ara Magdaleno [facility] - 15:17:00 [facility] 2D ECHO W/ DOPPLER 2021-01-[address] [facility] - (CW/PW/COLOR) 15:12:45 [facility] CBC W/PLT COUNT & AUTO 2021-01-16 Ara Cox [facility] - DIFFERENTIAL 15:08:00 [facility] COMPREHENSIVE METABOLIC 2021-01-16 Kenny, Ara Magdaleno [facility] - PANEL 15:08:00 [facility] MAGNESIUM 2021-01-16 Kenny, Ara Magdaleno [facility] - 15:08:00 [facility] PHOSPHORUS 2021-01-16 Kenny, Ara Magdaleno [facility] - 15:08:00 [facility] CALCIUM, IONIZED 2021-01-16 Kenny, [facility] - 15:08:00 [facility] LACTIC ACID, ARTERIAL 2021-01-16 Kenny, Ara Magdaleno [facility] - 15:08:00 [facility] PT/APTT 2021-01-16 Gillet, Ara Magdaleno [facility] - 15:08:00 [facility] TYPE AND SCREEN, AUTOMATED 2021-01-16 Gillet, Ara Magdaleno [facility] - 15:08:00 [facility] (CELLAVISION MANUAL DIFF) 2021-01-16 [...] Tyrel, Zakia [facility] - 14:21:00 [facility] POCT-BLOOD GASES, VENOUS 2021-01-16 Tyrel, Zakia [facility] - 14:14:00 [facility] POCT-SODIUM 2021-01-16 Tyrel, Zakia [facility] - 14:14:00 [facility] Center POCT-POTASSIUM 2021-01-16 Tyrel, Zakia [facility] - 14:14:00 [facility] POCT-HEMOGLOBIN 2021-01-16 Tyrel[facility] Zakia [facility] [...] Leonidas Ocampo [facility] - 07:04:00 [facility] APTT 2021-01-[address] [facility] - 04:47:00 [facility] PROTHROMBIN TIME/INR 2021-01-[address] 04:47:00 [facility] CBC W/PLT COUNT & AUTO 2021-01-[address] [facility] - DIFFERENTIAL 03:24:00 [facility] MAGNESIUM 2021-01-[address] [facility] - 03:24:00 [facility] BASIC METABOLIC PANEL (7) 2021-01-[address] [facility] - 03:24:00 [facility] PHOSPHORUS 2021-01-[address] [facility] - 03:24:00 [facility] (CELLAVISION MANUAL DIFF) 2021-01-[address] [facility] - 03:24:00 [facility] XR CHEST 1 VIEW PORTABLE / 2021-01-16 [facility] 00:28:00 [facility] POCT-GLUCOSE METER 2021-01-[address] [facility] - 00:04:00 [facility] LIPID PANEL 2021-01-[address] [facility] - 22:24:00 [facility] APTT 2021-01-[address] [facility] - 22:24:00 [facility] POCT-GLUCOSE METER 2021-01-[address] [facility] - 12:14:00 [facility] XR CHEST 1 VIEW PORTABLE / 2021-01-15 Leon[facility] - [facility] 09:00:00 [facility] APTT 2021-01-[address] [facility] - 08:48:00 [facility] POCT-GLUCOSE METER 2021-01-[address] [facility] - 08:12:00 [facility] CBC W/PLT COUNT & AUTO 2021-01-[address] [facility] - DIFFERENTIAL 03:16:00 [facility] COMPREHENSIVE METABOLIC 2021-01-15 [facility] - PANEL 03:16:00 [facility] MAGNESIUM 2021-01-[address] [facility] - 03:16:00 [facility] PROTHROMBIN TIME/INR 2021-01-[address] [facility] - 03:16:00 [facility] (CELLAVISION MANUAL DIFF) 2021-01-[address] [facility] - 03:16:00 [facility] POCT-GLUCOSE METER 2021-01-[address] [facility] - 21:14:00 [facility] PROTHROMBIN TIME/INR 2021-01-[address] [facility] - 13:01:00 [facility] HEMODIALYSIS INPATIENT 2021-01-14 [facility] - 12:00:15 [facility] ECG 12-LEAD 2021-01-14 Unknown, Hl7 Doctor [facility] - 11:17:11 [facility] HEPATITIS B SURFACE ANTIGEN 2021-01-[address] [facility] - 10:41:00 [facility] POCT-GLUCOSE METER 2021-01-[address] [facility] - 07:20:00 [facility] POCT-GLUCOSE METER 2021-01-[facility] 03:35:00 [facility] CBC W/PLT COUNT & AUTO 2021-01-14 Taye Villatoro [facility] - DIFFERENTIAL 03:29:00 [facility] COMPREHENSIVE METABOLIC 2021-01-14 [facility] - PANEL 03:29:00 [facility] MAGNESIUM 2021-01-[address] [facility] - 03:29:00 [facility] (CELLAVISION MANUAL DIFF) 2021-01-[address] [facility] - 03:29:00 [facility] XR CHEST 1 VIEW PORTABLE / 2021-01-14 [facility] 01:35:00 [facility] XR CHEST 1 VIEW PORTABLE / 2021-01-13 Chapo Kennedy [facility] 19:12:00 [facility] [place] NON[place]TUNNEL CV CATH 2021-01-13 [facility] 18:52[facility]29 [facility] POCT-GLUCOSE METER 2021-01-[address] [facility] - 17:25:00 [facility] BASIC METABOLIC PANEL (7) 2021-01-[address] [facility] - 15:28:00 [facility] MAGNESIUM 2021-01-[address] [facility] - 15:28:00 [facility] BLOOD GAS, ARTERIAL 2021-01-[address] [facility] - 15:28:00 [facility] POTASSIUM 2021-01-[address] [facility] - 12:29:00 [facility] BLOOD GAS, ARTERIAL 2021-01-[address] [facility] - 11:59:00 [facility] POCT-GLUCOSE METER 2021-01-[address] [facility] - 11:47:00 [facility] BLOOD GAS, ARTERIAL 2021-01-[address] [facility] - 09:15:00 [facility] SODIUM NA-STAT LAB 2021-01-[address] [facility] - 09:15:00 [facility] POTASSIUM-STAT LAB 2021-01-[address] [facility] - 09:15:00 [facility] GLUCOSE-STAT LAB 2021-01-[address] [facility] - 09:15:00 [facility] HGB/HCT (H&H) - STAT LAB 2021-01-[address] [facility] - 09:15:00 [facility] POTASSIUM 2021-01-[address] [facility] - 09:14:00 [facility] MAGNESIUM 2021-01-13 [facility] [place] [facility] - 09:14:00 [facility] PHOSPHORUS 2021-01-[address] [facility] - 09:14:00 [facility] (CELLAVISION MANUAL DIFF) 2021-01-[address] [facility] - 03:51:00 [facility] CBC W/PLT COUNT & AUTO 2021-01-13 Taye Villatoro [facility] - DIFFERENTIAL 03:51:00 [facility] COMPREHENSIVE METABOLIC 2021-01-13 [facility] PANEL 03:51:00 [facility] Center MAGNESIUM 2021-01-[address] [facility] - 03:51:00 Medical Center PHOSPHORUS 2021-01-[address] [facility] - 03:51:00 [facility] XR CHEST 1 VIEW PORTABLE / 2021-01-13 [facility] 00:14:00 [facility] PREPARE PLASMA 2021-01-[address] [facility] - 23:56:00 [facility] PREPARE RBC 2021-01-[address] [facility] - 23:55:00 [facility] PREPARE PLATELETS 2021-01-[address] [facility] - 23:55:00 [facility] PH, ARTERIAL 2021-01-12 [place], [place] [facility] [...] Elin Vasquez [facility] - 12:19:00 [facility] BRONCHIAL CULTURE + GRAM 2021-01-12 Elin Vasquez [facility] - STAIN 12:19:00 [facility] MAGNESIUM 2021-01-12 Worah, [place] [facility] - 09:17:00 Medical Center PHOSPHORUS 2021-01-12 Worah, [place] [facility] - 09:17:00 Medical Center BASIC METABOLIC PANEL (7) 2021-01-12 Worah, [place]en [facility] - 09:17:00 Medical Center POCT-GLUCOSE METER 2021-01-[address] [facility] - 06:29:00 [facility] POCT-GLUCOSE METER 2021-01-[address] [facility] - 03:26:00 [facility] CALCIUM, IONIZED 2021-01-12 , Nacho Wiseman [facility] - 03:15:00 [facility] LACTIC ACID, ARTERIAL 2021-01-12 Uk, Nacho Wiseman [facility] - 03:15:00 [facility] OXYGEN SATURATION, MEASURED 2021-01-12 Uk, Nacho Wiseman [facility] - 03:15:00 [facility] (CELLAVISION MANUAL DIFF) 2021-01-[address] [facility] - 03:07:00 [facility] PHOSPHORUS 2021-01-12 Wor[facility] [facility] - 03:07:00 [facility] MAGNESIUM 2021-01-12 Wor, [place] [facility] - 03:07:00 [facility] CBC W/PLT COUNT & AUTO 2021-01-[address] [facility] - DIFFERENTIAL 03:07:00 [facility] COMPREHENSIVE METABOLIC 2021-01-12 [facility] PANEL 03:07:00 [facility] BLOOD GAS, ARTERIAL 2021-01-[address] [facility] - 03:07:00 [facility] XR CHEST 1 VIEW PORTABLE / 2021-01-12 Scotty [facility] 00:18:00 [facility] BLOOD GAS, ARTERIAL 2021-01-11 Uk, Nach[facility] Wiseman [facility] - 22:20:00 [facility] BASIC METABOLIC PANEL (7) 2021-01-11 Uk, [facility]neth [facility] - 22:20:00 [facility] LACTIC ACID, ARTERIAL 2021-01-11 Uk, Nacho Wiseman [facility] - 22:20:00 [facility] BLOOD GAS, ARTERIAL 2021-01-[address] [facility] - 20:48:00 [facility] OXYGEN SATURATION, MEASURED 2021-01-[address] [facility] - 20:46:00 [facility] XR CHEST 1 VIEW PORTABLE / 2021-01-11 , Ndu[facility] Bowen [facility] 19:44:00 [facility] BLOOD GAS, ARTERIAL 2021-01-11 [facility], Nach[facility] Wiseman [facility] - 19:36:00 [facility] Center PROTHROMBIN TIME/INR 2021-01-11 [facility], Nacho Wiseman [facility] - 19:36:00 Medical Center APTT 2021-01-11 [facility], Nacho Wiseman [facility] - 19:36:00 Medical Center FIBRINOGEN 2021-01-11 [facility], Nacho Wiseman [facility] - 19:36:00 [facility] THROMBOELASTOGRAPH (TEG) 2021-01-11 [facility], Nacho Wiseman [facility] - 19:36:00 [facility] CALCIUM, IONIZED 2021-01-11 Wor, [place] [facility] - 19:35:00 [facility] BASIC METABOLIC PANEL (7) 2021-01-11 Mcwilliams, Ramires-Vu Mcwilliams [facility] - 19:35:00 [facility] MAGNESIUM 2021-01-11 Mcwilliams, Ramires-Vu Mcwilliams [facility] - 19:35:00 [facility] PHOSPHORUS 2021-01-11 Mcwilliams, Ramires-Vu Mcwilliams [facility] - 19:35:00 [facility] BLOOD GAS, ARTERIAL 2021-01-11 [facility], Nach[facility] Wiseman [facility] - 19:35:00 [facility] LACTIC ACID, ARTERIAL 2021-01-11 [facility], Nacho Wiseman [facility] - 19:35:00 [facility] CBC (HEMOGRAM ONLY) 2021-01-11 [facility], [facility] Wiseman [facility] - 19:35:00 [facility] SODIUM NA-STAT LAB 2021-01-11 [facility], [facility] Wis[facility] - 19:35:00 [facility] POTASSIUM-STAT LAB 2021-01-11 [facility], Nach[facility] Wiseman [facility] - 19:35:00 [facility] GLUCOSE-STAT LAB 2021-01-11 [facility], Nach[facility] Wiseman [facility] - 19:35:00 [facility] HGB/HCT (H&H) - STAT LAB 2021-01-11 [facility], Nacho Wiseman [facility] - 19:35:00 [facility] [place] TRANSFUSE PLASMA 2021-01-[address] [facility] - 18:01:22 [facility] BLOOD GAS, ARTERIAL 2021-01-[address] [facility] - 17:36:44 [facility] CALCIUM, IONIZED 2021-01-[address] [facility] [facility] - 17:36:44 [facility] SODIUM NA-STAT LAB 2021-01-[address] [facility] - 17:36:44 [facility] POTASSIUM-STAT LAB 2021-01-[address] [facility] - 17:36:44 [facility] GLUCOSE-STAT LAB 2021-01-[address] [facility] - 17:36:44 [facility] HGB/HCT (H&H) - STAT LAB 2021-01-[address] [facility] - 17:36:44 [facility] TRANSFUSE LEUKO-REDUCED RED 2021-01-11 Andrea Sharon Weller [facility] - BLOOD CELLS 17:35:09 [facility] TRANSFUSE LEUKO-REDUCED 2021-01-[address] [facility] - PLATELETS 17:34:22 [facility] TRANSFUSE LEUKO-REDUCED 2021-01-[address] [facility] - PLATELETS 17:33:58 [facility] POCT-ACT 2021-01-[address] [facility] - 17:28:00 [facility] BLOOD GAS, ARTERIAL 2021-01-[address] [facility] - 17:09:25 [facility] CALCIUM, IONIZED 2021-01-[address] [facility] - 17:09:25 [facility] PROTHROMBIN TIME/INR 2021-01-[address] [facility] - 17:09:25 [facility] APTT 2021-01-[address] [facility] - 17:09:25 [facility] FIBRINOGEN 2021-01-[address] [facility] - 17:09:25 [facility] PLATELET COUNT 2021-01-[address] [facility] - 17:09:25 [facility] SODIUM NA-STAT LAB 2021-01-[address] [facility] - 17:09:25 [facility] POTASSIUM-STAT LAB 2021-01-[address] [facility] - 17:09:25 [facility] GLUCOSE-STAT LAB 2021-01-[address] [facility] - 17:09:25 [facility] HGB/HCT (H&H) - STAT LAB 2021-01-[address] [facility] - 17:09:25 [facility] (CELLAVISION MANUAL DIFF) 2021-01-11 [address]ef[address] Mcwilliams [facility] - 17:09:00 [facility] CBC W/PLT COUNT & AUTO 2021-01-11 Estefany [facility]illiams [facility] - DIFFERENTIAL 17:09:00 [facility] POCT-ACT 2021-01-[address] [facility] - 17:08:00 [facility] BLOOD GAS, ARTERIAL 2021-01-[address] [facility] - 16:42:49 [facility] CALCIUM, IONIZED 2021-01-[address] [facility] - 16:42:49 [facility] SODIUM NA-STAT LAB 2021-01-[address] [facility] - 16:42:49 [facility] POTASSIUM-STAT LAB 2021-01-[address] [facility] - 16:42:49 [facility] GLUCOSE-STAT LAB 2021-01-[address] [facility] - 16:42:49 [facility] HGB/HCT (H&H) - STAT LAB 2021-01-[address] [facility] - 16:42:49 [facility] FUNGUS CULTURE + SMEAR 2021-01-[address] [facility] - 16:15:01 [facility] SURGICALLY OBTAINED CULTURE 2021-01-[address] [facility] - + GRAM STAIN 16:15:01 [facility] POCT-ACT 2021-01-[address] [facility] - 16:01:00 [facility] BLOOD GAS, ARTERIAL 2021-01-[address] [facility] - 15:58:32 [facility] SODIUM NA-STAT LAB 2021-01-[address] [facility] - 15:58:32 [facility] POTASSIUM-STAT LAB 2021-01-[address] [facility] - 15:58:32 [facility] GLUCOSE-STAT LAB 2021-01-[address] [facility] - 15:58:32 [facility] HGB/HCT (H&H) - STAT LAB 2021-01-[address] [facility] - 15:58:32 [facility] TISSUE EXAM 2021-01-[address] [facility] - 15:53:00 [facility] POCT-ACT 2021-01-11 Benedicto Witt [facility] - 15:33:00 [facility] BLOOD GAS, ARTERIAL 2021-01-[address] [facility] - 15:30:10 [facility] SODIUM NA-STAT LAB 2021-01-[address] [facility] - 15:30:10 [facility] POTASSIUM-STAT LAB 2021-01-[address] [facility] - 15:30:10 [facility] GLUCOSE-STAT LAB 2021-01-[address] [facility] - 15:30:10 [facility] HGB/HCT (H&H) - STAT LAB 2021-01-[address] [facility] - 15:30:10 [facility] BLOOD GAS, ARTERIAL 2021-01-[address] [facility] - 14:57:31 [facility] SODIUM NA-STAT LAB 2021-01-[address] [facility] - 14:57:31 [facility] POTASSIUM-STAT LAB 2021-01-[address] [facility] - 14:57:31 [facility] GLUCOSE-STAT LAB 2021-01-[address] [facility] - 14:57:31 [facility] HGB/HCT (H&H) - STAT LAB 2021-01-[address] [facility] - 14:57:31 [facility] POCT-ACT 2021-01-[address] [facility] - 14:48:00 [facility] ANESTHESIA VANCE 2021-01-[address] [facility] - 14:31:03 [facility] POCT-ACT 2021-01-[address] [facility] - 14:28:00 [facility] BLOOD GAS, ARTERIAL 2021-01-[address] [facility] - 14:06:20 [facility] SODIUM NA-STAT LAB 2021-01-[address] [facility] - 14:06:20 [facility] POTASSIUM-STAT LAB 2021-01-[address] [facility] - 14:06:20 [facility] GLUCOSE-STAT LAB 2021-01-[address] [facility] - 14:06:20 [facility] HGB/HCT (H&H) - STAT LAB 2021-01-[address] [facility] - 14:06:20 [facility] REPLACEMENT,VALVE MITRAL 2021-01-[address] [facility] - 13:12:00 [facility] VANCE,3D 2021-01-[address] [facility] - 13:12:00 [facility] POCT-GLUCOSE METER 2021-01-[address] [facility] - 12:41:00 [facility] BLOOD GAS, ARTERIAL 2021-01-[address] [facility] - 09:38:00 [facility] BASIC METABOLIC PANEL (7) 2021-01-11 [facility] [place] [facility] - 09:22:00 [facility] CALCIUM, IONIZED 2021-01-11 [facility] [place] [facility] - 09:22:00 [facility] PHOSPHORUS 2021-01-11 [facility] - 09:22:00 [facility] MAGNESIUM 2021-01-11 [facility] [place] [facility] - 09:22:00 [facility] XR CHEST 1 VIEW PORTABLE / 2021-01-11 Benedicto Witt [facility] - BEDSIDE 09:19:00 [facility] POCT-GLUCOSE METER 2021-01-[address] [facility] - 06:47:00 [facility] COMPREHENSIVE METABOLIC 2021-01-11 [facility]o [facility] - PANEL 04:05:00 [facility] MAGNESIUM 2021-01-11 Irving Colonia [facility] - 04:05:00 [facility] PHOSPHORUS 2021-01-11 Taye Villatoro [facility] - 04:05:00 [facility] BLOOD GAS, ARTERIAL 2021-01-[address] [facility] - 04:05:00 [facility] (CELLAVISION MANUAL DIFF) 2021-01-[address] [facility] - 04:04:00 [facility] CBC W/PLT COUNT & AUTO 2021-01-[address] [facility] - DIFFERENTIAL 04:04:00 [facility] CALCIUM, IONIZED 2021-01-11 Vilma [place] [facility] - 04:04:00 [facility] POCT-GLUCOSE METER 2021-01-[address] [facility] - 00:08:00 [facility] SARS-COV2/RT-PCR (HS & REF 2021-01-10 Luz Rojas [facility] - LABS) 23:17:00 [facility] BASIC METABOLIC PANEL (7) 2021-01-10 [facility] 23:14:00 [facility] CALCIUM, IONIZED 2021-01-10 [facility] [place] [facility] - 23:14:00 [facility] PHOSPHORUS 2021-01-10 [facility] - 23:14:00 [facility] MAGNESIUM 2021-01-10 [facility] [facility] - 23:14:00 [facility] NM INSERT 2021-01-[address] [facility] - CATH,ART,PERCUT,SHORTTERM 19:00:12 [facility] SPUTUM CULTURE + GRAM STAIN 2021-01-[address] [facility] - 17:15:00 [facility] BLOOD CULTURE 2021-01-[address] [facility] - 17:15:00 [facility] 2D ECHO W/ DOPPLER 2021-01-10 Taye Villatoro [facility] - (CW/PW/COLOR) 16:47:17 [facility] PROTHROMBIN TIME/INR 2021-01-[address] [facility] [facility] - 16:25:00 [facility] APTT 2021-01-10 Irving, Taye Kapadia [facility] - 16:25:00 [facility] FIBRINOGEN 2021-01-10 Irving, Taye Kapadia [facility] - 16:25:00 [facility] BLOOD GAS, VENOUS 2021-01-10 Irving, Taye Kapadia [facility] - 16:25:00 [facility] XR CHEST 1 VIEW PORTABLE / 2021-01-10 Irving, [facility] 15:41:00 [facility] TYPE AND SCREEN, AUTOMATED 2021-01-10 Irving, [facility] - 15:38:00 [facility] (CELLAVISION MANUAL DIFF) 2021-01-10 [place], [place] [facility] - 15:38:00 [facility] CBC W/PLT COUNT & AUTO 2021-01-10 Irving, ColoniaKang Soloriokes - DIFFERENTIAL 15:38:00 [facility] COMPREHENSIVE METABOLIC 2021-01-10 [place], [place] [facility] - PANEL 15:38:00 [facility] MAGNESIUM 2021-01-10 Irving, Taye Kapadia [facility] - 15:38:00 [facility] PHOSPHORUS 2021-01-10 Irving, Taye Kapadia [facility] - 15:38:00 [facility] LACTIC ACID, VENOUS 2021-01-10 [place], Taye Kapadia [facility] - 15:38:00 [facility] POCT-GLUCOSE METER 2021-01-10 Trey Galvez [facility] - 15:01:00 [facility] ECG 12-LEAD 2021-01-10 Unknown, Hl7 Doctor [facility] - 14:08:05 [facility] EXTERNAL PROVIDER RECORDS 2019-08-03 Doctor Unassigned, [facility] 06:01:00 [facility] Plan of Care Planned Activity Planned Date Details Comments Source Future Scheduled 2024-01-[address] [facility] - Test 00:00:00 (procedure) [code = [facility] [id number]] Future Scheduled 2024-01-[address] [facility] - Test 00:00:00 (procedure) [code = [facility] [id number]] Future Scheduled 2024-01-[address] [facility] - Test 00:00:00 (procedure) [code = [facility] [id number]] Future Scheduled 2021-02-[address] [...] Type Clinicians Facility Department ID 2021-04-06 Outpatient [facility] [id number] [facility] 23:36:40 2021-04-06 Outpatient [facility] [id number] Univers 13:49:25 2021-03-14 Outpatient [id number] Memoria 16:36:28 [id number] [place] [id number] 2021-01-09 [facility] Cardiology [id number] 00:[facility]:00 Encounter [facility] 2019-03-15 Inpatient [facility] PUL [id number] [facility] W 17:40:00 2021-04-12 2021-04-12 Outpatient DEDE [facility] [id number] [facility] 13:05:26 13:05:26 [facility] 2021-04-04 2021-04-04 [facility] [id number] [facility] 00:00:00 00:00:00 [facility] 2021-03-27 2021-03-27 Outpatient STAN [facility] [id number] [facility] 00:00:00 00:00:00 [facility] 2021-03-27 2021-03-27 Outpatient STAN [facility] [id number] [facility] 00:00:00 00:00:00 [facility] 2021-01-10 2021-03-25 Inpatient DEDE ORTIZ [facility] Emergency [id number] [facility] 14:49:00 17:10:00 [facility] 2021-03-20 2021-03-20 Outpatient STAN [facility] [id number] [facility] 00:00:00 00:00:00 [facility] 2021-03-20 2021-03-20 Outpatient STAN, [facility]H [facility] [id number] [facility] 00:00:00 00:00:00 [facility] 2021-03-10 2021-03-10 Outpatient STAN [facility] [id number] [facility] 00:00:00 00:00:00 [facility] 2021-03-01 2021-03-01 Outpatient [facility] [id number] [facility] 00:00:00 00:00:00 [facility] 2021-02-15 2021-02-15 Outpatient [facility] [id number] [facility] 00:00:00 00:00:00 [facility] 2021-02-15 2021-02-15 Outpatient [facility]AN [facility] [id number] [facility] 00:00:00 00:00:00 [facility] 2021-01-31 2021-01-31 Outpatient [facility] [id number] [facility] 00:00:00 00:00:00 [facility] 2021-01-23 2021-01-23 Outpatient [facility] [id number] [facility] 11:45:00 23:59:00 Ellie 2021-01-23 2021-01-23 Surgery Omar, [facility] [id number] [facility] 14:18:00 16:57:00 Trey [facility] 2021-01-23 2021-01-[address] [facility] [id number] [facility] 12:46:00 15:41:00 Event Alden Arias [facility] 2021-01-22 2021-01-22 Anesthesia Ekta, [facility] [id number] 06:27:40 06:27:40 Event Francheska [facility] 2021-01-21 2021-01-21 Travel [facility] [id number] [facility] 00[facility] 00:[facility]:00 [facility] 2021-01-16 2021-01-16 Outpatient BCM BC [id number] [facility] 00:00:00 23:59:00 [facility] 2021-01-16 2021-01-16 Anesthesia Debra, [facility] [id number] [address] 14:00:00 14:00:00 Event Arcadio Hodge [facility] 2021-01-11 2021-01-[address] [facility] [id number] [facility] 13:02:00 19:30:00 Event Suzie Beth [facility] 2021-01-11 2021-01-[address] [facility] [id number] 13:43:00 16:58:00 [facility] 2021-01-10 2021-01-10 Outpatient BCM BCM [id number] [facility] 14:49:00 23:59:00 [facility] 2021-01-10 2021-01-10 Outpatient BCM BC [id number] [facility] 14:49:00 14:49:00 [facility] 2021-01-10 2021-01-[address] [facility] [id number] 00:00:00 00:00:00 Only [facility] 2020-12-15 2020-12-15 [facility] [id number] Univers 13:30:00 13:30:00 WONDIFUL [id number] ity o f [facility] 2020-12-15 2020-12-15 Outpatient Tam [facility] [id number] Univers 13:30:00 13:30:00 WONDIFUL ity o f [facility] 2020-02-01 2020-02-01 [facility] 1.2.840.114 [id number] 00:00:00 00:00:00 Agus Tenorio SPECIALTY 350.1.13.10 [facility] 4.2.7.2.686 CENTER AT [id number] [address] 2020-02-01 2020-02-01 Telephone [facility] 1.2.840.114 [id number] Univers 00:00:00 00:00:00 Agus R SPECIALTY 350.1.13.10 it[place] [id number] Ms beth PEREZ [address] [place] [address] 2019-12-22 2019-12-22 Telephone Faculty, [facility] 1.2.840.114 [id number] 00:00:00 00:00:00 Vascular Y HEALTH 350.1.13.10 Surg CLINICS 4.2.7.2.686 [id number] [facility] 2019-12-22 2019-12-22 Telephone Faculty, [facility] 1.2.840.114 [id number] Univers 00:00:00 00:00:00 Vascular Y HEALTH 350.1.13.10 ity of Surg CL[place]ICS [place] [id number] [facility] [address] 2019-11-19 2019-11-19 Telephone [facility], [facility] 1.2.840.114 [id number] 00:00:00 00:00:00 Ted Y HEALTH 350.1.13.10 CLINICS 4.2.7.2.686 [id number] [facility] 2019-11-19 2019-11-19 Telephone [facility], [facility] 1.2.840.114 [id number] Univers 00:00:00 00:00:00 Ted Y HEALTH 350.1.13.10 i ty [place] [id number] [place] [address] [address] 2019-11-04 2019-11-04 Telephone [facility], [facility] 1.2.840.114 [id number] 00:00:00 00:00:00 Ted Y HEALTH 350.1.13.10 CLINICS 4.2.7.2.686 [id number] [facility] 2019-11-04 2019-11-04 Telephone Bowen, [facility] 1.2.840.114 [id number] Univers 00:00:00 00:00:00 Ted Y HEALTH 350.1.13.10 i [place] [id number] [address] 2019-08-19 2019-09-01 Office NICOLE Bowen [id number] Univers 11:01:36 12:14:59 Visit Ted Dyson [facility] 350.1.13.10 i ty of CLINICS 4.2.7.2.686 [place] maurer [id number] [address] 2019-08-19 2019-08-19 Outpatient R [facility] [id number] Univers 10:15:00 10:15:00 TED ity of [facility] 2019-08-03 2019-08-03 Orders Doctor BRENT 1.2.840.114 [id number] Univers 00:00:00 00:00:00 Only Unassigned, ROXIE 350.1.13.[address] [facility] 4.2.7.2.686 Mark as [phone] [address] Results Test Description Test Time Test Comments Results Result Comments Source PROTHROMBIN TIME/INR 2021-03-25 06:33:53 Test Item Value Reference Range Interpretation Comme nts PROTIME (BEAKER) (test code 28.1 seconds 11.9-14.2 H = 759) INR (BEAKER) (test code = 2.67 See_Comment [ Automated message] The [employer]) system which ge nerated this result transmit ari reference range: <=5.90. The reference range was not u sed to interpret this result as normal/abnormal . RECOMMENDED COUMADIN/WARFARIN INR THERAPY RANGESSTANDARD DOSE: 2.0 - 3.0 Includes: PROPHYLAXIS forvenous thrombosis, systemic embolization; TREATMENT for venous thrombosis and/or pulmonary embolus.HIGH RISK: Target INR is 2.5-3.5 for patients with mechanical heart valves.SARS-COV2/RT-PCR ([facility]) 2021-03-25 03:01:02 Test Item Value Reference Range Interpretation Comments SARS-COV2/RT-PCR (test code = Negative Negative 1616191) Negative result for this test determines that [...] Healthcare Providers:https://www.molecular.mcdonald/jermaine/RT SARS-CoV-2 HCP Fact Sheet 51- 620182.pdfFact Sheet for Healthcare Patients:https://www.molecular.mcdonald/jermaine/RT SARS-CoV-2 Patient Fact Sheet EN 51-556725M9.pdfBASI METABOLIC [id number] 16:24:38 Test Item Value Reference Range Interpretation [...] S NOT APPLICABLE FOR DIALYSIS PATIEN TS. Automation Engineering Technician ID - DBCBC (HEMOGRAM ONLY)2021-03-24 16:04:46 Test [...] = 413) RAD, CHEST, 1 VIEW, NON [id number] 15:20:00Reason for exam:->chfShould this be performed at the bedside?->Yes [facility] 1975 Sex: MAddendum BeginsREPORT STATUS:A Addendum: No evidence of active tuberculosis. Signed: Re Cantueport Verified Date/Time: 03/24/2021 15:20:26 Reading Location: [address] Neuro Reading RoomAddendum EndsFINAL REPORT RAD, [...] Cantuort Verified Date/Time: 03/14/2021 07:27:07 Reading Location: [facility] Radiology Reading Room PROTHROMBIN TIME/[id number] 04:54:57 Test Item Value Reference Range Interpretation Comments PROTIME (BEAKER) 27.8 seconds 11.9-14.2 H (test code = 759) INR (BEAKER) (test 2.63 See_Comment [Automat ed message] code = 370) The system [employer] generated this result transmitted ref erence range: <=5.90. The reference range was not used to int erpret this result as normal/abnormal . RECOMMENDED COUMADIN/WARFARIN INR THERAPY RANGESSTANDARD DOSE: 2.0 - 3.0 Includes: PROPHYLAXIS forvenous thrombosis, systemic embolization; TREATMENT for venous thrombosis and/or pulmonary embolus.HIGH RISK: Target INR is 2.5-3.5 for patients with mechanical heart valves.PROTHROMBIN TIME/[id number] 05:42:02 Test Item Value Reference Range Interpretation Comments PROTIME (BEAKER) 25.9 seconds 11.9-14.2 H (test code = 759) INR (BEAKER) (test 2.40 See_Comment [Automat ed message] code = 370) The system [employer] generated this result transmitted ref erence range: <=5.90. The reference range was not used to int erpret this result as normal/abnormal . RECOMMENDED COUMADIN/WARFARIN INR THERAPY RANGESSTANDARD DOSE: 2.0 - 3.0 Includes: PROPHYLAXIS forvenous thrombosis, systemic embolization; TREATMENT for venous thrombosis and/or pulmonary embolus.HIGH RISK: Target INR is 2.5-3.5 for patients with mechanical heart valves.BASIC METABOLIC [id number] 07:39:53 Test Item Value Reference Range Interpretation [...] S NOT APPLICABLE FOR DIALYSIS PATIEN TS. Automation Engineering Technician ID - PIAYA LPROTHROMBIN TIME/[id number] 06:23:41 Test Item Value Reference Range Interpretation Comments PROTIME (BEAKER) 26.2 seconds 11.9-14.2 H (test code = 759) INR (BEAKER) (test 2.43 See_Comment [Automat ed message] code = 370) The system [employer] generated this result transmitted ref erence range: [...] (BEAKER) (test code = 2801) BASIC METABOLIC [id number] 07:28:56 Test Item Value Reference Range Interpretation [...] S NOT APPLICABLE FOR DIALYSIS PATIEN TS. Automation Engineering Technician ID - KT GPROTHROMBIN TIME/[id number] 05:52:11 Test Item Value Reference Range Interpretation Comments PROTIME (BEAKER) 25.3 seconds 11.9-14.2 H (test code = 759) INR (BEAKER) (test 2.33 See_Comment [Automat ed message] code = 370) The system [employer] generated this result transmitted ref erence range: [...] (BEAKER) (test code = 2801) BASIC METABOLIC [id number] 06:54:24 Test Item Value Reference Range Interpretation [...] S NOT APPLICABLE FOR DIALYSIS PATIEN TS. Automation Engineering Technician ID - PIAYA [id number] 06:42:10 Test Item Value Reference Range Interpretation Comments MAGNESIUM (BEAKER) (test code = 2.4 mg/dL 1.6-2.6 627) Automation Engineering Technician ID - PIAYA LPROTHROMBIN TIME/[id number] 04:45:47 Test Item Value Reference Range Interpretation Comments PROTIME (BEAKER) 27.8 seconds 11.9-14.2 H (test code = 759) INR (BEAKER) (test 2.62 See_Comment [Automat ed message] code = 370) The system [employer] generated this result transmitted ref erence range: [...] (BEAKER) (test code = 2801) BASIC METABOLIC [id number] 06:18:33 Test Item Value Reference Range Interpretation [...] S NOT APPLICABLE FOR DIALYSIS PATIEN TS. Automation Engineering Technician ID - LINA [id number] 06:17:36 Test Item Value Reference Range Interpretation Comments MAGNESIUM (BEAKER) (test code = 2.3 mg/dL 1.6-2.6 627) Automation Engineering Technician ID - LINA LPROTHROMBIN TIME/[id number] 05:08:54 Test Item Value Reference Range Interpretation Comments PROTIME (BEAKER) 25.0 seconds 11.9-14.2 H (test code = 759) INR (BEAKER) (test 2.30 See_Comment [Automat ed message] code = 370) The system [employer] generated this result transmitted ref erence range: [...] PERCENT (BEAKER) (test code = 2801) PROTHROMBIN TIME/[id number] 08:29:25 Test Item Value Reference Range Interpretation Comments PROTIME (BEAKER) 21.5 seconds 11.9-14.2 H (test code = 759) INR (BEAKER) (test 1.90 See_Comment [Automat ed message] code = 370) The system [employer] generated this result transmitted ref erence range: <=5.90. The reference range was not used to int erpret this result as normal/abnormal . RECOMMENDED COUMADIN/WARFARIN INR THERAPY RANGESSTANDARD DOSE: 2.0 - 3.0 Includes: PROPHYLAXIS forvenous thrombosis, systemic embolization; TREATMENT for venous thrombosis and/or pulmonary embolus.HIGH RISK: Target INR is 2.5-3.5 for patients with mechanical heart valves.BASIC METABOLIC [id number] 08:04:03 Test Item Value Reference Range Interpretation [...] S NOT APPLICABLE FOR DIALYSIS PATIEN TS. Automation Engineering Technician ID - [id number] 07:56:20 Test Item Value Reference Range Interpretation Comments MAGNESIUM (BEAKER) (test code = 2.2 mg/dL 1.6-2.6 627) Automation Engineering Technician ID - DBCBC W/PLT COUNT & AUTO [id number] 06:24:39 Test Item Value Reference Range Interpretation [...] (BEAKER) (test code = 2801) BASIC METABOLIC [id number] 05:13:11 Test Item Value Reference Range Interpretation [...] S NOT APPLICABLE FOR DIALYSIS PATIEN TS. Automation Engineering Technician ID - [id number] 05:12:41 Test Item Value Reference Range Interpretation Comments MAGNESIUM (BEAKER) (test code = 2.0 mg/dL 1.6-2.6 627) Automation Engineering Technician ID - jrlPROTHROMBIN TIME/[id number] 04:43:24 Test Item Value Reference Range Interpretation Comments PROTIME (BEAKER) 19.8 seconds 11.9-14.2 H (test code = 759) INR (BEAKER) (test 1.70 See_Comment [Automat ed message] code = 370) The system [employer] generated this result transmitted ref erence range: [...] (BEAKER) (test code = 2801) BASIC METABOLIC [id number] 06:02:17 Test Item Value Reference Range Interpretation [...] S NOT APPLICABLE FOR DIALYSIS PATIEN TS. Automation Engineering Technician ID - LINA [id number] 05:58:16 Test Item Value Reference Range Interpretation Comments PHOSPHORUS (BEAKER) (test code = 3.5 mg/dL 2.3-4.7 604) Automation Engineering Technician ID - LINA [id number] 05:58:15 Test Item Value Reference Range Interpretation Comments MAGNESIUM (BEAKER) (test code = 2.0 mg/dL 1.6-2.6 627) Automation Engineering Technician ID - LINA LCBC W/PLT COUNT & AUTO [id number] 05:27:17 Test Item Value Reference Range Interpretation [...] PERCENT (BEAKER) (test code = 2801) PROTHROMBIN TIME/[id number] 05:24:58 Test Item Value Reference Range Interpretation Comments PROTIME (BEAKER) 19.3 seconds 11.9-14.2 H (test code = 759) INR (BEAKER) (test 1.65 See_Comment [Automat ed message] code = 370) The system [employer] generated this result transmitted ref erence range: <=5.90. The reference range was not used to int erpret this result as normal/abnormal . RECOMMENDED COUMADIN/WARFARIN INR THERAPY RANGESSTANDARD DOSE: 2.0 - 3.0 Includes: PROPHYLAXIS forvenous thrombosis, systemic embolization; TREATMENT for venous thrombosis and/or pulmonary embolus.HIGH RISK: Target INR is 2.5-3.5 for patients with mechanical heart valves.CALCIUM, [id number] 05:17:50 Test Item Value Reference Range Interpretation Comments CALCIUM IONIZED (BEAKER) (test 1.18 mmol/L 1.12-1.27 code = 698) PH, BLOOD (BEAKER) (test code = 7.44 1810) BASIC METABOLIC [id number] 04:50:11 Test Item Value Reference Range Interpretation [...] S NOT APPLICABLE FOR DIALYSIS PATIEN TS. Automation Engineering Technician ID - [id number] 04:37:45 Test Item Value Reference Range Interpretation Comments MAGNESIUM (BEAKER) (test code = 2.1 mg/dL 1.6-2.6 627) Automation Engineering Technician ID - jrlPROTHROMBIN TIME/[id number] 04:31:43 Test Item Value Reference Range Interpretation Comments PROTIME (BEAKER) 17.3 seconds 11.9-14.2 H (test code = 759) INR (BEAKER) (test 1.44 See_Comment [Automat ed message] code = 370) The system [employer] generated this result transmitted ref erence range: [...] PERCENT (BEAKER) (test code = 2801) PROTHROMBIN TIME/[id number] 07:23:37 Test Item Value Reference Range Interpretation Comments PROTIME (BEAKER) 18.6 seconds 11.9-14.2 H (test code = 759) INR (BEAKER) (test 1.58 See_Comment [Automat ed message] code = 370) The system [employer] generated this result transmitted ref erence range: <=5.90. The reference range was not used to int erpret this result as normal/abnormal . RECOMMENDED COUMADIN/WARFARIN INR THERAPY RANGESSTANDARD DOSE: 2.0 - 3.0 Includes: PROPHYLAXIS forvenous thrombosis, systemic embolization; TREATMENT for venous thrombosis and/or pulmonary embolus.HIGH RISK: Target INR is 2.5-3.5 for patients with mechanical heart valves.SARS-COV2/RT-PCR ([facility]) 2021-03-14 05:57:12 Test Item Value Reference Range Interpretation Comments SARS-COV2/RT-PCR (test code = Negative Negative 2520683) Negative result for this test determines that [...] Healthcare Providers:https://www.molecular.mcdonald/jermaine/RT SARS-CoV-2 HCP Fact Sheet 51- 121632.pdfFact Sheet for Healthcare Patients:https://www.molecular.mcdonald/jermaine/RT SARS-CoV-2 Patient Fact Sheet EN [id number].[id number] 02:21:39 Test Item Value Reference Range Interpretation Comments MAGNESIUM (BEAKER) (test code = 1.9 mg/dL 1.6-2.6 627) Automation Engineering Technician ID - VALDEZ MBASIC METABOLIC [id number] 02:14:15 Test Item Value Reference Range Interpretation [...] S NOT APPLICABLE FOR DIALYSIS PATIEN TS. Automation Engineering Technician ID - VALDEZ MHEMOGLOBIN AND [id number] 01:40:58 Test Item Value Reference Range Interpretation Comments HEMOGLOBIN (BEAKER) (test code = 8.2 GM/DL 13.7-17.5 L 410) HEMATOCRIT (BEAKER) (test code = 25.5 % 40.1-51.0 L 411) Automation Engineering Technician ID - [id number], [id number] 23:45:00Unlisted Reason for Exam - Click Yes and Enter Reason Below->NoWill this procedure require oral co ntrast?->NoHOLLYWO[facility] : 1975 Sex: MFINAL REPORT [...] (test code = 25 mg/dL 14-258 366) Automation Engineering Technician ID - [id number] 15:44:30 Test Item Value Reference Range Interpretation Comments FERRITIN (BEAKER) (test code = 1918.52 ng/mL 5.00-275.00 H 361) Automation Engineering Technician ID - DBOperator ID - DBVITAMIN B12 AND [id number] 15:41:58 Test Item Value Reference Range Interpretation Comments VITAMIN B12 (BEAKER) 524 pg/mL 213-816 (test code = 774) FOLATE (BEAKER) 6.10 ng/mL See_Comment L [Automated message] (test code = 362) The system which generated this result transmitted ref erence range: >=7.00. The reference range was not used to interpr et this result as normal/abnormal . Automation Engineering Technician ID - DBOperator ID - DBLACTATE DEHYDROGENASE (LDH)2021-03-13 14:43:19 Test Item Value Reference Range Interpretation Comments LACTATE DEHYDROGENASE 580 U/L 125-220 H Specim en moderately (BEAKER) (test code = hemoly zed 635) Automation Engineering Technician ID - GEMINI GILBERTYRN, TIBC, % SAT. (WITHOUT FERRITIN)2021-03-13 14:39:07 Test Item Value Reference Range Interpretation Comments IRON (BEAKER) (test code = 547) 63.0 ug/dL 40.0-160.0 TOTAL IRON BINDING CAPACITY 155 ug/dL 250-450 L (BEAKER) (test code = 769) IRON % SATURATION (2) (BEAKER) 41 % 20-55 (test code = 2590) Automation Engineering Technician ID - GEMINI FPLASMA FREE [id number] 14:30:24 Test Item Value Reference Range Interpretation Comments HEMOGLOBIN PLASMA (BEAKER) (test 90.0 mg/dl 0.0-30.0 H code = 1054) HEMOGLOBIN AND [id number] 14:23:29 Test Item Value Reference Range Interpretation Comments HEMOGLOBIN (BEAKER) (test code = 8.2 GM/DL 13.7-17.5 L 410) HEMATOCRIT (BEAKER) (test code = 24.8 % 40.1-51.0 L 411) Automation Engineering Technician ID - GretaRETICULOCYTE [id number] 14:23:27 Test Item Value Reference Range Interpretation Comments RETICULOCYTE COUNT PCT (BEAKER) (test 2.3 % 0.5-1.8 H code = 575) Automation Engineering Technician ID - [id number], CHEST, 1 VIEW, NON [id number] 09:09:00Reason for exam:->chfShould this be performed at the bedside?->Yesafter HD today qt 11 [facility] : 1975 Sex: [...] Cantu Verified Date/Time: 03/13/2021 09:09:22 Reading Location: [facility] Radiology Reading Room BASIC METABOLIC [id number] 04:12:57 Test Item Value Reference Range Interpretation [...] S NOT APPLICABLE FOR DIALYSIS PATIEN TS. Automation Engineering Technician ID - KENNETH [id number] 04:09:45 Test Item Value Reference Range Interpretation Comments MAGNESIUM (BEAKER) (test code = 2.3 mg/dL 1.6-2.6 627) Automation Engineering Technician ID Doretha COOPER WPROTHROMBIN TIME/[id number] 03:56:35 Test Item Value Reference Range Interpretation Comments PROTIME (BEAKER) 19.0 seconds 11.9-14.2 H (test code = 759) INR (BEAKER) (test 1.62 See_Comment [Automat ed message] code = 370) The system [employer] generated this result transmitted ref erence range: [...] PERCENT (BEAKER) (test code = 2801) SARS-COV2/RT-PCR ([facility])2021-03-12 10:44:31 Test Item Value Reference Range Interpretation Comments SARS-COV2/RT-PCR (test Negative Not Detected, Negative, code = 5008109) See external report for linked test SARS-COV-2 PERFORMING LAB [facility] (test code = 1120952) Negative result for this test determines that [...] 564(g) of the Act.Fact Sheet for Healthcare Providers:https://www.Adan.mobiManage/sites/default/files/product/documents/Fact_Shee p_DF_Yedfzsksr_Gbso_HDPS-JdX-9.pdfFact Sheet for Healthcare Patients:https://www.[employer]an.mobiManage/sites/default/files/product/ documents/Sqnj_Tpuyg_Oiktshpa_Sela_XLFN-AsB-0.pdfPerforming Laboratory:[facility], [place] [address]AQQ, CHEST, 1 VIEW, NON [id number] 08:32:00Reason for exam:->Assess cardiopulmonary statusShould this be performed at the bedside?->Yes [facility] : 1975 Sex: MFINAL REPORT [...] Unremarkable. IMPRESSION:No significant interval change.. Signed: [facility] Verified Date/Time: 03/12/2021 08:32:05 Reading Location: [facility] B1 C013Y CT Body Reading Room BASIC METABOLIC [id number] 07:41:58 Test Item Value Reference Range Interpretation [...] S NOT APPLICABLE FOR DIALYSIS PATIEN TS. Automation Engineering Technician ID Doretha COOPER [facility] (HEMOGRAM ONLY)2021-03-12 05:39:27 Test Item Value Reference [...] (BEAKER) (test code = 413) BASIC METABOLIC [id number] 04:49:56 Test Item Value Reference Range Interpretation [...] S NOT APPLICABLE FOR DIALYSIS PATIEN TS. Automation Engineering Technician ID - KENNETH RUBIYOHANA SENSITIVITY TROPONIN [id number] 04:31:11 Test Item Value Reference Range Interpretation Comments HIGH SENSITIVITY 113 pg/ml See_Comment H [Automated message] TROPONIN I (test code The sy stem which = 7190518) generated this result transmitted ref erence range: <=35. Th e reference range was not used to int erpret this result as normal/abnormal . Automation Engineering Technician ID - KENNETH [employer] High Sensitivity Troponin-I results should be used in conjunction with other diagnostic information such as ECG, clinical observations and information, and patient symptoms to aid in the diagnosis of [place].PROTHROMBIN TIME/[id number] 04:20:43 Test Item Value Reference Range Interpretation Comments PROTIME (BEAKER) 19.7 seconds 11.9-14.2 H (test code = 759) INR (BEAKER) (test 1.69 See_Comment [Automat ed message] code = 370) The system [employer] generated this result transmitted ref erence range: <=5.90. The reference range was not used to int erpret this result as normal/abnormal . RECOMMENDED COUMADIN/WARFARIN INR THERAPY RANGESSTANDARD DOSE: 2.0 - 3.0 Includes: PROPHYLAXIS forvenous thrombosis, systemic embolization; TREATMENT for venous thrombosis and/or pulmonary embolus.HIGH RISK: Target INR is 2.5-3.5 for patients with mechanical heart valves.BASIC METABOLIC [id number] 21:53:20 Test Item Value Reference Range Interpretation [...] S NOT APPLICABLE FOR DIALYSIS PATIEN TS. Automation Engineering Technician ID - [id number] 21:52:49 Test Item Value Reference Range Interpretation Comments PHOSPHORUS (BEAKER) (test code = 3.7 mg/dL 2.3-4.7 604) Automation Engineering Technician ID - DBCBC W/PLT COUNT & AUTO [id number] 21:37:55 Test Item Value Reference Range Interpretation [...] 0-100 H (BEAKER) (test code = 700) Automation Engineering Technician ID - KT GRAD, CHEST, 1 VIEW, NON [id number] 19:27:00Reason for exam:->SOBHOLLYWO[facility]: [facility]OW [facility] : 1975 Sex: MFINAL REPORT [...] Domingo Duron MDReport Verified Date/Time: 03/11/2021 19:27:48 [id number] 19:26:03 Test Item Value Reference Range Interpretation Comments POC-GLUCOSE ([facility]) 101 mg/dL 70-110 : TESTE D AT [place] [address] (test code = 1855) [facility], [address]: Automation Engineering Technician/Techni won ID = [id number] for MARF [place], LUCA GALL-[id number] 19:26:01 Test Item Value Reference Range Interpretation Comments POC-HEMATOCRIT 27 % 40-50 L : Automation Engineering Technician/Te chnician ID = ([facility]) (test code = 616206 for MARFIL, LUCA 185) [id number] 19:25:59 Test Item Value Reference Range Interpretation Comments POC-HEMOGLOBIN 9.2 g/dL 13.0-16.8 L : TESTED AT [place] [address] ([facility]) (test code = NORM [place] [facility], 1856) [address]: Automation Engineering Technician/Techni won ID = [id number] for MARF IL, LUCA [id number] 19:25:57 Test Item Value Reference Range Interpretation Comments POC-POTASSIUM 4.1 meq/L 3.6-5.5 : TESTED AT [place] [address] ([facility]) (test code [facility], = 1540) [address]: Automation Engineering Technician/Techni won ID = [id number] for MARF IL, LUCA [id number] 19:25:55 Test Item Value Reference Range Interpretation Comments POC-SODIUM ([facility]) 140 meq/L 135-148 : TESTED AT [facility] 6720 (test code = 1542) [place], [address]: Automation Engineering Technician/Techni won ID = [id number] for LUCA ARAMBULA POCT-BLOOD GASES, [id number] 19:25:53 Test Item Value Reference Range Interpretation [...] 5.0 meq/L -2.0-3.0 H : TESTED AT [facility] 67[address] ARTERIAL-POC [facility], (BEAKER) (test code [address]36[address]: = 1841) Automation Engineering Technician/Techni won ID = [id number] for LUCA ARAMBULA PROTHROMBIN TIME/[id number] 05:38:58 Test Item Value Reference Range Interpretation Comments PROTIME (BEAKER) 22.0 seconds 11.9-14.2 H (test code = 759) INR (BEAKER) (test 1.95 See_Comment [Automat ed message] code = 370) The system [employer] generated this result transmitted ref erence range: <=5.90. The reference range was not used to int erpret this result as normal/abnormal . RECOMMENDED COUMADIN/WARFARIN INR THERAPY RANGESSTANDARD DOSE: 2.0 - 3.0 Includes: PROPHYLAXIS forvenous thrombosis, systemic embolization; TREATMENT for venous thrombosis and/or pulmonary embolus.HIGH RISK: Target INR is 2.5-3.5 for patients with mechanical heart valves.BASIC METABOLIC [id number] 07:13:10 Test Item Value Reference Range Interpretation [...] S NOT APPLICABLE FOR DIALYSIS PATIEN TS. Automation Engineering Technician ID - [id number] 07:11:21 Test Item Value Reference Range Interpretation Comments PHOSPHORUS (BEAKER) (test code = 5.0 mg/dL 2.3-4.7 H 604) Automation Engineering Technician ID - ADMINPROTHROMBIN TIME/[id number] 06:33:50 Test Item Value Reference Range Interpretation Comments PROTIME (BEAKER) 33.3 seconds 11.9-14.2 H (test code = 759) INR (BEAKER) (test 3.30 See_Comment [Automat ed message] code = 370) The system [employer] generated this result transmitted ref erence range: <=5.90. The reference range was not used to int erpret this result as normal/abnormal . RECOMMENDED COUMADIN/WARFARIN INR THERAPY RANGESSTANDARD DOSE: 2.0 - 3.0 Includes: PROPHYLAXIS forvenous thrombosis, systemic embolization; TREATMENT for venous thrombosis and/or pulmonary embolus.HIGH RISK: Target INR is 2.5-3.5 for patients with mechanical heart valves.BASIC METABOLIC [id number] 08:17:53 Test Item Value Reference Range Interpretation [...] S NOT APPLICABLE FOR DIALYSIS PATIEN TS. Automation Engineering Technician ID - ADMINPROTHROMBIN TIME/[id number] 06:12:32 Test Item Value Reference Range Interpretation Comments PROTIME (BEAKER) 35.0 seconds 11.9-14.2 H (test code = 759) INR (BEAKER) (test 3.52 See_Comment [Automat ed message] code = 370) The system [employer] generated this result transmitted ref erence range: [...] (BEAKER) (test code = 2801) HEMOGLOBIN AND [id number] 08:45:35 Test Item Value Reference Range Interpretation Comments HEMOGLOBIN (BEAKER) (test code = 6.7 GM/DL 13.7-17.5 L 410) HEMATOCRIT (BEAKER) (test code = 21.5 % 40.1-51.0 L 411) Automation Engineering Technician ID - [id number] METABOLIC [id number] 07:38:51 Test Item Value Reference Range Interpretation [...] S NOT APPLICABLE FOR DIALYSIS PATIEN TS. Automation Engineering Technician ID - GEMINI FPROTHROMBIN TIME/[id number] 07:17:17 Test Item Value Reference Range Interpretation Comments PROTIME (BEAKER) 38.7 seconds 11.9-14.2 H (test code = 759) INR (BEAKER) (test 4.00 See_Comment [Automat ed message] code = 370) The system [employer] generated this result transmitted ref erence range: [...] PERCENT (BEAKER) (test code = 2801) PROTHROMBIN TIME/[id number] 06:57:22 Test Item Value Reference Range Interpretation Comments PROTIME (BEAKER) 39.4 seconds 11.9-14.2 H (test code = 759) INR (BEAKER) (test 4.08 See_Comment [Automat ed message] code = 370) The system [employer] generated this result transmitted ref erence range: <=5.90. The reference range was not used to int erpret this result as normal/abnormal . RECOMMENDED COUMADIN/WARFARIN INR THERAPY RANGESSTANDARD DOSE: 2.0 - 3.0 Includes: PROPHYLAXIS forvenous thrombosis, systemic embolization; TREATMENT for venous thrombosis and/or pulmonary embolus.HIGH RISK: Target INR is 2.5-3.5 for patients with mechanical heart valves.PROTHROMBIN TIME/[id number] 05:52:25 Test Item Value Reference Range Interpretation Comments PROTIME (BEAKER) 36.7 seconds 11.9-14.2 H (test code = 759) INR (BEAKER) (test 3.74 See_Comment [Automat ed message] code = 370) The system [employer] generated this result transmitted ref erence range: <=5.90. The reference range was not used to int erpret this result as normal/abnormal . RECOMMENDED COUMADIN/WARFARIN INR THERAPY RANGESSTANDARD DOSE: 2.0 - 3.0 Includes: PROPHYLAXIS forvenous thrombosis, systemic embolization; TREATMENT for venous thrombosis and/or pulmonary embolus.HIGH RISK: Target INR is 2.5-3.5 for patients with mechanical heart valves.BASIC METABOLIC [id number] 05:13:18 Test Item Value Reference Range Interpretation [...] S NOT APPLICABLE FOR DIALYSIS PATIEN TS. Automation Engineering Technician ID - VALDEZ MCBC W/PLT COUNT & AUTO [id number] 05:00:45 Test Item Value Reference Range Interpretation [...] PERCENT (BEAKER) (test code = 2801) PROTHROMBIN TIME/[id number] 04:50:41 Test Item Value Reference Range Interpretation Comments PROTIME (BEAKER) 32.7 seconds 11.9-14.2 H (test code = 759) INR (BEAKER) (test 3.23 See_Comment [Automat ed message] code = 370) The system [employer] generated this result transmitted ref erence range: <=5.90. The reference range was not used to int erpret this result as normal/abnormal . RECOMMENDED COUMADIN/WARFARIN INR THERAPY RANGESSTANDARD DOSE: 2.0 - 3.0 Includes: PROPHYLAXIS forvenous thrombosis, systemic embolization; TREATMENT for venous thrombosis and/or pulmonary embolus.HIGH RISK: Target INR is 2.5-3.5 for patients with mechanical heart valves.HEPATITIS B [id number] 07:32:34 Test Item Value Reference Range Interpretation Comments HEPATITIS B CORE TOTAL ANTIBODY Nonreactive Nonreactive (BEAKER) (test code = 497) HEPATITIS B SURFACE ANTIBODY 2822.9 mIU/mL <8.0 H (BEAKER) (test code = 647) HEPATITIS B SURFACE ANTIGEN (2) Nonreactive Nonreactive (BEAKER) (test code = 2585) Automation Engineering Technician ID - EMERSONOperator ID - EMERSONBASIC METABOLIC [id number] 06:32:52 Test Item Value Reference Range Interpretation [...] S NOT APPLICABLE FOR DIALYSIS PATIEN TS. Automation Engineering Technician ID - JRLPROTHROMBIN TIME/[id number] 05:58:24 Test Item Value Reference Range Interpretation Comments PROTIME (BEAKER) 32.5 seconds 11.9-14.2 H (test code = 759) INR (BEAKER) (test 3.20 See_Comment [Automat ed message] code = 370) The system [employer] generated this result transmitted ref erence range: [...] (BEAKER) (test code = 2801) BASIC METABOLIC [id number] 08:24:48 Test Item Value Reference Range Interpretation [...] S NOT APPLICABLE FOR DIALYSIS PATIEN TS. Automation Engineering Technician ID - PIAYA LPROTHROMBIN TIME/[id number] 07:16:29 Test Item Value Reference Range Interpretation Comments PROTIME (BEAKER) 28.4 seconds 11.9-14.2 H (test code = 759) INR (BEAKER) (test 2.70 See_Comment [Automat ed message] code = 370) The system [employer] generated this result transmitted ref erence range: [...] PERCENT (BEAKER) (test code = 2801) SARS-COV2/RT-PCR ([facility])2021-03-01 11:26:13 Test Item Value Reference Range Interpretation Comments SARS-COV2/RT-PCR (test Negative Not Detected, Negative, code = 8739960) See external report for linked test SARS-COV-2 PERFORMING LAB [facility] (test code = 6305516) Negative result for this test determines that [...] 564(g) of the Act.Fact Sheet for Healthcare Providers:https://www.[employer]/sites/default/files/product/documents/Fact_Shee j_JU_Nuytdlaye_Msld_CAUL-FgS-2.pdfFact Sheet for Healthcare Patients:https://www.[employer]/sites/default/files/product/ documents/Ozpy_Frkwr_Tkbovwuc_Xcod_ICDA-DvB-6.pdfPerforming Laboratory:[facility], [place] [address]EMTCJXZPSHY TIME/INR 2021-03-01 04:16:38 Test Item Value Reference Range Interpretation Comments PROTIME (BEAKER) 25.5 seconds 11.9-14.2 H (test code = 759) INR (BEAKER) (test 2.35 See_Comment [Automat ed message] code = 370) The system [employer] generated this result transmitted ref erence range: [...] PERCENT (BEAKER) (test code = 2801) PROTHROMBIN TIME/[id number] 04:21:23 Test Item Value Reference Range Interpretation Comments PROTIME (BEAKER) 23.9 seconds 11.9-14.2 H (test code = 759) INR (BEAKER) (test 2.17 See_Comment [Automat ed message] code = 370) The system [employer] generated this result transmitted ref erence range: [...] (BEAKER) (test code = 2801) BASIC METABOLIC [id number] 05:21:01 Test Item Value Reference Range Interpretation [...] S NOT APPLICABLE FOR DIALYSIS PATIEN TS. Automation Engineering Technician ID - KT [facility] (HEMOGRAM ONLY)2021-02-27 05:14:08 Test Item Value Reference [...] 0-100 H (BEAKER) (test code = 700) Automation Engineering Technician ID - ADMINPROTHROMBIN TIME/[id number] 04:56:59 Test Item Value Reference Range Interpretation Comments PROTIME (BEAKER) 22.7 seconds 11.9-14.2 H (test code = 759) INR (BEAKER) (test 2.03 See_Comment [Automat ed message] code = 370) The system [employer] generated this result transmitted ref erence range: <=5.90. The reference range was not used to int erpret this result as normal/abnormal . RECOMMENDED COUMADIN/WARFARIN INR THERAPY RANGESSTANDARD DOSE: 2.0 - 3.0 Includes: PROPHYLAXIS forvenous thrombosis, systemic embolization; TREATMENT for venous thrombosis and/or pulmonary embolus.HIGH RISK: Target INR is 2.5-3.5 for patients with mechanical heart valves.PROTHROMBIN TIME/[id number] 15:31:42 Test Item Value Reference Range Interpretation Comments PROTIME (BEAKER) 23.5 seconds 11.9-14.2 H (test code = 759) INR (BEAKER) (test 2.12 See_Comment [Automat ed message] code = 370) The system [employer] generated this result transmitted ref erence range: <=5.90. The reference range was not used to int erpret this result as normal/abnormal . RECOMMENDED COUMADIN/WARFARIN INR THERAPY RANGESSTANDARD DOSE: 2.0 - 3.0 Includes: PROPHYLAXIS forvenous thrombosis, systemic embolization; TREATMENT for venous thrombosis and/or pulmonary embolus.HIGH RISK: Target INR is 2.5-3.5 for patients with mechanical heart valves.BLOOD GAS, [id number] 05:16:22 Test Item Value Reference Range Interpretation [...] (test code = 1819) 50.0 COMPREHENSIVE METABOLIC [id number] 23:42:13 Test Item Value Reference Range Interpretation [...] S NOT APPLICABLE FOR DIALYSIS PATIEN TS. Automation Engineering Technician ID - DBHIGH SENSITIVITY TROPONIN [id number] 23:38:42 Test Item Value Reference Range Interpretation Comments HIGH SENSITIVITY 128 pg/ml See_Comment H [Automated message] TROPONIN I (test code The stem which = 3631997) generated this result transmitted ref erence range: <=35. Th e reference range was not used to int erpret this result as normal/abnormal . Automation Engineering Technician ID - DBThe [employer] STAT High Sensitivity Troponin-I results should be used in conjunctionwith other diagnostic information such as ECG, clinical observations and information, and patient symptoms to aid in the diagnosis of LA.LACTIC ACID, [id number] 23:28:44 Test Item Value Reference Range Interpretation Comments LACTATE BLOOD VENOUS 0.82 mmol/L 0.50-2.20 Specime n slightly (2) (BEAKER) (test hemolyzed code = 2872) Automation Engineering Technician ID - DBCBC W/PLT COUNT & AUTO [id number] 23:13:06 Test Item Value Reference Range Interpretation [...] = 2801) RAD, CHEST, 1 VIEW, NON [id number] 23:11:00Reason for exam:- >hypoxiaShould this be performed at the bedside?->Yes [facility] 1975 Sex: [...] osseous structures are unremarkable. Signed: Kelsie Briones [facility] Verified Date/Time: 02/25/2021 23:11:55 [id number] 22:36:53 Test Item Value Reference Range Interpretation Comments POC-GLUCOSE (BEAKER) 96 mg/dL 70-110 : TESTE D AT [facility] 6720 (test code = 1855) [place], [address]: Automation Engineering Technician/Techni won ID = [id number] for JESUS MANUEL SAENZ [id number] 22:36:52 Test Item Value Reference Range Interpretation Comments POC-HEMATOCRIT 25 % 40-50 L : Automation Engineering Technician/Te chnician ID = (BEAKER) (test code = 528382 for JESUS MANUEL ZAYAS 1857) [id number] 22:36:51 Test Item Value Reference Range Interpretation Comments POC-HEMOGLOBIN 8.5 g/dL 13.0-16.8 L : TESTED AT [facility] 6720 (BEAKER) (test code = NORM [place] [facility], 185) [address]: Automation Engineering Technician/Techni won ID = [id number] for RUMB AOA, JESUS MANUEL [id number] 22:36:50 Test Item Value Reference Range Interpretation Comments POC-SODIUM (BEAKER) 135 meq/L 135-148 : TESTED AT [facility] 67 (test code = 1542) [place] [facility], [address]: Automation Engineering Technician/Techni won ID = [id number] for RUMB AOA, JESUS MANUEL [id number] 22:36:50 Test Item Value Reference Range Interpretation Comments POC-POTASSIUM 4.2 meq/L 3.6-5.5 : TESTED AT [facility] 67 (BEAKER) (test code [facility], = 1540) [address]: Automation Engineering Technician/Techni won ID = [id number] for RUMB AOA, JESUS MANUEL POCT-BLOOD GASES, [id number] 22:36:49 Test Item Value Reference Range Interpretation [...] EXCESS, 1.0 meq/L -2.0-3.0 : TESTED AT [facility] 67[address] ARTERIAL-POC [facility], (BEAKER) (test code [address]: = 1841) Automation Engineering Technician/Techni won ID = [id number] for JESUS MANUEL SAENZ CBC W/PLT COUNT & AUTO [id number] 07:09:54 Test Item Value Reference Range Interpretation [...] (BEAKER) (test code = 2801) BASIC METABOLIC [id number] 06:39:44 Test Item Value Reference Range Interpretation [...] S NOT APPLICABLE FOR DIALYSIS PATIEN TS. Automation Engineering Technician ID - KT GCALCIUM, [id number] 06:23:23 Test Item Value Reference Range Interpretation Comments CALCIUM IONIZED (BEAKER) (test 1.14 mmol/L 1.12-1.27 code = 698) PH, BLOOD (BEAKER) (test code = 7.40 1810) [id number] 06:05:48 Test Item Value Reference Range Interpretation Comments PHOSPHORUS (BEAKER) (test code = 4.7 mg/dL 2.3-4.7 604) Automation Engineering Technician ID - KT [id number] 06:05:46 Test Item Value Reference Range Interpretation Comments MAGNESIUM (BEAKER) (test code = 2.1 mg/dL 1.6-2.6 627) Automation Engineering Technician ID - KT GPROTHROMBIN TIME/[id number] 05:51:22 Test Item Value Reference Range Interpretation Comments PROTIME (BEAKER) 21.2 seconds 11.9-14.2 H (test code = 759) INR (BEAKER) (test 1.86 See_Comment [Automat ed message] code = 370) The system [employer] generated this result transmitted ref erence range: <=5.90. The reference range was not used to int erpret this result as normal/abnormal . RECOMMENDED COUMADIN/WARFARIN INR THERAPY RANGESSTANDARD DOSE: 2.0 - 3.0 Includes: PROPHYLAXIS forvenous thrombosis, systemic embolization; TREATMENT for venous thrombosis and/or pulmonary embolus.HIGH RISK: Target INR is 2.5-3.5 for patients with mechanical heart valves.BASIC METABOLIC [id number] 04:44:34 Test Item Value Reference Range Interpretation [...] S NOT APPLICABLE FOR DIALYSIS PATIEN TS. Automation Engineering Technician ID - KT [id number] 04:43:05 Test Item Value Reference Range Interpretation Comments PHOSPHORUS (BEAKER) (test code = 6.2 mg/dL 2.3-4.7 H 604) Automation Engineering Technician ID - KT [id number] 04:43:03 Test Item Value Reference Range Interpretation Comments MAGNESIUM (BEAKER) (test code = 2.2 mg/dL 1.6-2.6 627) Automation Engineering Technician ID - KT GPROTHROMBIN TIME/[id number] 04:31:37 Test Item Value Reference Range Interpretation Comments PROTIME (BEAKER) 24.3 seconds 11.9-14.2 H (test code = 759) INR (BEAKER) (test 2.21 See_Comment [Automat ed message] code = 370) The system [employer] generated this result transmitted ref erence range: [...] PERCENT (BEAKER) (test code = 2801) CALCIUM, [id number] 04:16:25 Test Item Value Reference Range Interpretation Comments CALCIUM IONIZED (BEAKER) (test 1.14 mmol/L 1.12-1.27 code = 698) PH, BLOOD (BEAKER) (test code = 7.43 1810) BASIC METABOLIC [id number] 06:34:09 Test Item Value Reference Range Interpretation [...] S NOT APPLICABLE FOR DIALYSIS PATIEN TS. Automation Engineering Technician ID - KT GCBC W/PLT COUNT & AUTO [id number] 06:34:05 Test Item Value Reference Range Interpretation [...] 0-1 PERCENT (BEAKER) (test code = 2801) [id number] 06:25:36 Test Item Value Reference Range Interpretation Comments MAGNESIUM (BEAKER) (test code = 2.0 mg/dL 1.6-2.6 627) Automation Engineering Technician ID - KT [id number] 06:25:36 Test Item Value Reference Range Interpretation Comments PHOSPHORUS (BEAKER) (test code = 5.7 mg/dL 2.3-4.7 H 604) Automation Engineering Technician ID - KT GCALCIUM, [id number] 06:03:49 Test Item Value Reference Range Interpretation Comments CALCIUM IONIZED (BEAKER) (test 1.16 mmol/L 1.12-1.27 code = 698) PH, BLOOD (BEAKER) (test code = 7.37 1810) PROTHROMBIN TIME/[id number] 06:02:59 Test Item Value Reference Range Interpretation Comments PROTIME (BEAKER) 29.9 seconds 11.9-14.2 H (test code = 759) INR (BEAKER) (test 2.89 See_Comment [Automat ed message] code = 370) The system [employer] generated this result transmitted ref erence range: <=5.90. The reference range was not used to int erpret this result as normal/abnormal . RECOMMENDED COUMADIN/WARFARIN INR THERAPY RANGESSTANDARD DOSE: 2.0 - 3.0 Includes: PROPHYLAXIS forvenous thrombosis, systemic embolization; TREATMENT for venous thrombosis and/or pulmonary embolus.HIGH RISK: Target INR is 2.5-3.5 for patients with mechanical heart valves.HEPATITIS PANEL, [id number] 13:18:27 Test Item Value Reference Range Interpretation Comments HEPATITIS A IGM ANTIBODY (BEAKER) Nonreactive Nonreactive (test code = 498) HEPATITIS B CORE IGM ANTIBODY Nonreactive Nonreactive (BEAKER) (test code = 645) HEPATITIS C ANTIBODY (BEAKER) Nonreactive Nonreactive (test code = 367) HEPATITIS B SURFACE ANTIGEN (2) Nonreactive Nonreactive (BEAKER) (test code = 2585) Automation Engineering Technician ID - VALDEZ MBASIC METABOLIC [id number] 06:25:00 Test Item Value Reference Range Interpretation [...] S NOT APPLICABLE FOR DIALYSIS PATIEN TS. Automation Engineering Technician ID - VALDEZ [id number] 06:02:13 Test Item Value Reference Range Interpretation Comments PHOSPHORUS (BEAKER) 7.5 mg/dL 2.3-4.7 H Specimen slightly (test code = 604) hemolyzed Automation Engineering Technician ID - VALDEZ [id number] 06:02:12 Test Item Value Reference Range Interpretation Comments MAGNESIUM (BEAKER) 2.2 mg/dL 1.6-2.6 Specimen slightly (test code = 627) hemolyzed Automation Engineering Technician ID - VALDEZ MCALCIUM, [id number] 05:35:58 Test Item Value Reference Range Interpretation Comments CALCIUM IONIZED (BEAKER) (test 1.12 mmol/L 1.12-1.27 code = 698) PH, BLOOD (BEAKER) (test code = 7.35 1810) CBC W/PLT COUNT & AUTO [id number] 05:09:10 Test Item Value Reference Range Interpretation [...] PERCENT (BEAKER) (test code = 2801) PROTHROMBIN TIME/[id number] 05:08:20 Test Item Value Reference Range Interpretation Comments PROTIME (BEAKER) 32.7 seconds 11.9-14.2 H (test code = 759) INR (BEAKER) (test 3.22 See_Comment [Automat ed message] code = 370) The system [employer] generated this result transmitted ref erence range: <=5.90. The reference range was not used to int erpret this result as normal/abnormal . RECOMMENDED COUMADIN/WARFARIN INR THERAPY RANGESSTANDARD DOSE: 2.0 - 3.0 Includes: PROPHYLAXIS forvenous thrombosis, systemic embolization; TREATMENT for venous thrombosis and/or pulmonary embolus.HIGH RISK: Target INR is 2.5-3.5 for patients with mechanical heart valves.PROTHROMBIN TIME/[id number] 05:04:40 Test Item Value Reference Range Interpretation Comments PROTIME (BEAKER) 32.1 seconds 11.9-14.2 H (test code = 759) INR (BEAKER) (test 3.15 See_Comment [Automat ed message] code = 370) The system [employer] generated this result transmitted ref erence range: <=5.90. The reference range was not used to int erpret this result as normal/abnormal . RECOMMENDED COUMADIN/WARFARIN INR THERAPY RANGESSTANDARD DOSE: 2.0 - 3.0 Includes: PROPHYLAXIS forvenous thrombosis, systemic embolization; TREATMENT for venous thrombosis and/or pulmonary embolus.HIGH RISK: Target INR is 2.5-3.5 for patients with mechanical heart valves.SARS-COV2/RT-PCR ([facility]) 2021-02-21 20:29:02 Test Item Value Reference Range Interpretation Comments SARS-COV2/RT-PCR (test code = Negative Negative [id number]) Negative result for this test determines that [...] Healthcare Providers:https://www.molecular.mcdonald/jermaine/RT SARS-CoV-2 HCP Fact Sheet 51- 719335.pdfFact Sheet for Healthcare Patients:https://www.molecular.mcdonald/jermaine/RT SARS-CoV-2 Patient Fact Sheet EN 51-157269F3.pdfBASI METABOLIC [id number] 06:13:04 Test Item Value Reference Range Interpretation [...] S NOT APPLICABLE FOR DIALYSIS PATIEN TS. Automation Engineering Technician ID - [id number] 05:59:30 Test Item Value Reference Range Interpretation Comments PHOSPHORUS (BEAKER) (test code = 5.6 mg/dL 2.3-4.7 H 604) Automation Engineering Technician ID - [id number] 05:59:28 Test Item Value Reference Range Interpretation Comments MAGNESIUM (BEAKER) (test code = 2.0 mg/dL 1.6-2.6 627) Automation Engineering Technician ID - BSCBC W/PLT COUNT & AUTO [id number] 05:39:00 Test Item Value Reference Range Interpretation [...] PERCENT (BEAKER) (test code = 2801) PROTHROMBIN TIME/[id number] 05:38:20 Test Item Value Reference Range Interpretation Comments PROTIME (BEAKER) 37.7 seconds 11.9-14.2 H (test code = 759) INR (BEAKER) (test 3.86 See_Comment [Automat ed message] code = 370) The system [employer] generated this result transmitted ref erence range: <=5.90. The reference range was not used to int erpret this result as normal/abnormal . RECOMMENDED COUMADIN/WARFARIN INR THERAPY RANGESSTANDARD DOSE: 2.0 - 3.0 Includes: PROPHYLAXIS forvenous thrombosis, systemic embolization; TREATMENT for venous thrombosis and/or pulmonary embolus.HIGH RISK: Target INR is 2.5-3.5 for patients with mechanical heart valves.PROTHROMBIN TIME/[id number] 05:38:15 Test Item Value Reference Range Interpretation Comments PROTIME (BEAKER) 38.1 seconds 11.9-14.2 H (test code = 759) INR (BEAKER) (test 3.92 See_Comment [Automat ed message] code = 370) The system [employer] generated this result transmitted ref erence range: <=5.90. The reference range was not used to int erpret this result as normal/abnormal . RECOMMENDED COUMADIN/WARFARIN INR THERAPY RANGESSTANDARD DOSE: 2.0 - 3.0 Includes: PROPHYLAXIS forvenous thrombosis, systemic embolization; TREATMENT for venous thrombosis and/or pulmonary embolus.HIGH RISK: Target INR is 2.5-3.5 for patients with mechanical heart valves.CALCIUM, [id number] 05:28:08 Test Item Value Reference Range Interpretation Comments CALCIUM IONIZED (BEAKER) (test 1.12 mmol/L 1.12-1.27 code = 698) PH, BLOOD (BEAKER) (test code = 7.41 1810) PERIPHERAL BLOOD SMEAR - PATHOLOGIST [id number] 14:07:25 Test Item Value Reference Range Interpretation Comments PERIPHERAL SMR Normocytic normochromic REVIEW (BEAKER) anemia with mild (test code = 9262) anisopoikilocytosis and polychromasia. Rare schistocytes (0.6 per HPF). WBCs include predominantly mature granulocytes. Platelets are decreased, no clumping/satellitism seen. [id number] Anita Zamora, 112 (BEAKER) (test M.D code = 2849) RETICULOCYTE [id number] 11:37:09 Test Item Value Reference Range Interpretation Comments RETICULOCYTE COUNT PCT (BEAKER) (test 3.6 % 0.5-1.8 H code = 575) Automation Engineering Technician ID - [id number], [id number] 08:12:42 Test Item Value Reference Range Interpretation Comments CALCIUM IONIZED (BEAKER) (test 1.12 mmol/L 1.12-1.27 code = 698) PH, BLOOD (BEAKER) (test code = 7.41 1810) CBC W/PLT COUNT & AUTO [id number] 07:49:07 Test Item Value Reference Range Interpretation [...] (BEAKER) (test code = 2801) BASIC METABOLIC [id number] 07:19:01 Test Item Value Reference Range Interpretation [...] S NOT APPLICABLE FOR DIALYSIS PATIEN TS. Automation Engineering Technician ID - VALDEZ [id number] 07:18:50 Test Item Value Reference Range Interpretation Comments PHOSPHORUS (BEAKER) 5.4 mg/dL 2.3-4.7 H Specimen slightly (test code = 604) hemolyzed Automation Engineering Technician ID - VALDEZ [id number] 07:18:49 Test Item Value Reference Range Interpretation Comments MAGNESIUM (BEAKER) 2.0 mg/dL 1.6-2.6 Specimen slightly (test code = 627) hemolyzed Automation Engineering Technician ID - VALDEZ MPROTHROMBIN TIME/[id number] 06:39:12 Test Item Value Reference Range Interpretation Comments PROTIME (BEAKER) 33.7 seconds 11.9-14.2 H (test code = 759) INR (BEAKER) (test 3.35 See_Comment [Automat ed message] code = 370) The system Rupee[employer] generated this result transmitted ref erence range: <=5.90. The reference range was not used to int erpret this result as normal/abnormal . RECOMMENDED COUMADIN/WARFARIN INR THERAPY RANGESSTANDARD DOSE: 2.0 - 3.0 Includes: PROPHYLAXIS forvenous thrombosis, systemic embolization; TREATMENT for venous thrombosis and/or pulmonary embolus.HIGH RISK: Target INR is 2.5-3.5 for patients with mechanical heart valves.RAD, CHEST, 1 VIEW, NON [id number] 06:01:00Reason for exam:->intubatedShould this be performed at the bedside?->[facility] 1975 Sex: MFINAL REPORT [...] 02/19/2021 06:01:44 , CHEST, 1 VIEW, NON [id number] 07:41:00Reason for exam:- >intubatedShould this be performed at the bedside?->Yes [facility] : 1975 Sex: MFINAL REPORT [...] 0-100 H (BEAKER) (test code = 700) Automation Engineering Technician ID - DBOperator ID - DBBASIC METABOLIC [id number] 06:26:54 Test Item Value Reference Range Interpretation [...] S NOT APPLICABLE FOR DIALYSIS PATIEN TS. Automation Engineering Technician ID - VALDEZ MPROTHROMBIN TIME/[id number] 06:17:35 Test Item Value Reference Range Interpretation Comments PROTIME (BEAKER) 29.3 seconds 11.9-14.2 H (test code = 759) INR (BEAKER) (test 2.80 See_Comment [Automat ed message] code = 370) The system [employer] generated this result transmitted ref erence range: [...] 0-1 PERCENT (BEAKER) (test code = 2801) [id number] 06:10:34 Test Item Value Reference Range Interpretation Comments PHOSPHORUS (BEAKER) (test code = 4.2 mg/dL 2.3-4.7 604) Automation Engineering Technician ID - VALDEZ [id number] 06:10:33 Test Item Value Reference Range Interpretation Comments MAGNESIUM (BEAKER) (test code = 1.9 mg/dL 1.6-2.6 627) Automation Engineering Technician ID - VALDEZ MBLOOD GAS, [id number] 05:54:10 Test Item Value Reference Range Interpretation [...] (BEAKER) (test code = 1819) 21.0 CALCIUM, [id number] 05:53:59 Test Item Value Reference Range Interpretation Comments CALCIUM IONIZED (BEAKER) (test 1.14 mmol/L 1.12-1.27 code = 698) PH, BLOOD (BEAKER) (test code = 7.40 1810) VITAMIN B12 AND [id number] 10:29:00 Test Item Value Reference Range Interpretation Comments VITAMIN B12 (BEAKER) 816 pg/mL 213-816 (test code = 774) FOLATE (BEAKER) 8.40 ng/mL See_Comment [Automated message] (test code = 362) The system which generated this result transmitted ref erence range: >=7.00. The reference range was not used to interpr et this result as normal/abnormal . Automation Engineering Technician ID - JESUS CBASIC METABOLIC [id number] 08:43:00 Test Item Value Reference Range Interpretation [...] S NOT APPLICABLE FOR DIALYSIS PATIEN TS. Automation Engineering Technician ID - SAROJAYA LRAD, CHEST, 1 VIEW, NON [id number] 08:32:00Reason for exam:->intubatedShould this be performed at the bedside?->Yes [facility] 1975 Sex: MFINAL REPORT Chest AP portable Comparison exam: 02/16/2021 History prov ided: Intubated Despite history provided, no ET tube is visualized. Heart size magnified by projection. Dialysis catheter in place. Widespread bilateral airspace disease unchanged. Signed: Riky BooneMDReport Verified Date/Time: 02/17/2021 08:32:52 Reading Location: [facility] Radiology Reading Room MAGNESIUM 2021-02-17 07:55:00 Test Item Value Reference Range Interpretation Comments MAGNESIUM (BEAKER) 2.0 mg/dL 1.6-2.6 Specimen slightly (test code = 627) hemolyzed Automation Engineering Technician ID - PIAYA [id number] 07:55:00 Test Item Value Reference Range Interpretation Comments PHOSPHORUS (BEAKER) 4.7 mg/dL 2.3-4.7 Specimen slightly (test code = 604) hemolyzed Automation Engineering Technician ID - PIAYA LPROTHROMBIN TIME/[id number] 06:54:00 Test Item Value Reference Range Interpretation Comments PROTIME (BEAKER) 29.4 seconds 11.9-14.2 H (test code = 759) INR (BEAKER) (test 2.82 See_Comment [Automat ed message] code = 370) The system [employer] generated this result transmitted ref erence range: <=5.90. The reference range was not used to int erpret this result as normal/abnormal . RECOMMENDED COUMADIN/WARFARIN INR THERAPY RANGESSTANDARD DOSE: 2.0 - 3.0 Includes: PROPHYLAXIS forvenous thrombosis, systemic embolization; TREATMENT for venous thrombosis and/or pulmonary embolus.HIGH RISK: Target INR is 2.5-3.5 for patients with mechanical heart valves.CALCIUM, [id number] 06:54:00 Test Item Value Reference Range Interpretation Comments CALCIUM IONIZED (BEAKER) (test 1.16 mmol/L 1.12-1.27 code = 698) PH, BLOOD (BEAKER) (test code = 7.39 1810) CBC W/PLT COUNT & AUTO [id number] 06:53:00 Test Item Value Reference Range Interpretation [...] PERCENT (BEAKER) (test code = 2801) POCT-GLUCOSE [id number] 21:32:00 Test Item Value Reference Range Interpretation Comments POC-GLUCOSE METER 103 mg/dL 70-110 : TESTED A T [facility] 6720 (BEAKER) (test code = [employer] [facility], 1538) 33[address]: Automation Engineering Technician/Techni won ID = [id number] for MARÍA AMAYA POCT-GLUCOSE [id number] 16:27:00 Test Item Value Reference Range Interpretation Comments POC-GLUCOSE METER 101 mg/dL 70-110 : TESTED A T [facility] 6720 (BEAKER) (test code = [employer] [facility], 1538) 12604: Automation Engineering Technician/Techni won ID = [id number] for Delmer Janelle Daly RAD, ANKLE, MIN 3 VIEWS, [id number] 13:26:00Reason for exam:->Ankle pain [facility] : 1975 Sex: MFINAL REPORT CLINICAL HISTORY: Ankle pain TECHNIQUE: Three views of t he left ankle COMPARISON: None IMPRESSION: There is diffuse soft tissue swelling throughout the ankle with an ankle joint effusion. There is no evidence for fracture or dislocation. There is a dorsal calcaneal spur. Signed: Melodie Zarate MDReport Verified Date/Time: 02/16/2021 13:26:52 Reading Location: [facility] Radiology Reading Room POCT-GLUCOSE [id number] 12:24:00 Test Item Value Reference Range Interpretation Comments POC-GLUCOSE METER 97 mg/dL 70-110 : TESTED A T [facility] 6720 (BEAKER) (test code = [place], 1538) [address]: Automation Engineering Technician/Techni won ID = [id number] for Janelle Powers BASIC METABOLIC [id number] 12:00:00 Test Item Value Reference Range Interpretation [...] S NOT APPLICABLE FOR DIALYSIS PATIEN TS. Automation Engineering Technician ID - GEMINI [id number] 11:52:00 Test Item Value Reference Range Interpretation Comments MAGNESIUM (BEAKER) (test code = 1.8 mg/dL 1.6-2.6 627) Automation Engineering Technician ID - GEMINI [id number] 11:52:00 Test Item Value Reference Range Interpretation Comments PHOSPHORUS (BEAKER) (test code = 4.0 mg/dL 2.3-4.7 604) Automation Engineering Technician ID - GEMINI BRUNO, CHEST, 1 VIEW, NON [id number] 10:51:00Reason for exam:->Pulmonary vascular congestion; ESRD on HDShould this be performed at the bedside?->Yes [facility] : 1975 [...] Zarate Verified Date/Time: 02/16/2021 10:51:39 Reading Location: [facility] Radiology Reading Room POCT-GLUCOSE [id number] 07:52:00 Test Item Value Reference Range Interpretation Comments POC-GLUCOSE METER 100 mg/dL 70-110 : TESTED A T [facility] 6720 (BEAKER) (test code = RAYMONJACQUELINE [employer] [facility], 1538) 509[address]: Automation Engineering Technician/Techni won ID = [id number] for Delmer Janelle Daly CALCIUM, [id number] 06:46:00 Test Item Value Reference Range Interpretation Comments CALCIUM IONIZED (BEAKER) (test 1.14 mmol/L 1.12-1.27 code = 698) PH, BLOOD (BEAKER) (test code = 7.43 1810) PROTHROMBIN [id number] 06:38:00 Test Item Value Reference Range Interpretation Comments PROTIME (BEAKER) 29.2 seconds 11.9-14.2 H (test code = 759) INR (BEAKER) (test 2.80 See_Comment [Automat ed message] code = 370) The system [employer] generated this result transmitted ref erence range: [...] PERCENT (BEAKER) (test code = 2801) PROTHROMBIN [id number] 23:36:00 Test Item Value Reference Range Interpretation Comments PROTIME (BEAKER) 28.8 seconds 11.9-14.2 H (test code = 759) INR (BEAKER) (test 2.74 See_Comment [Automat ed message] code = 370) The system [employer] generated this result transmitted ref erence range: <=5.90. The reference range was not used to int erpret this result as normal/abnormal . RECOMMENDED COUMADIN/WARFARIN INR THERAPY RANGESSTANDARD DOSE: 2.0 - 3.0 Includes: PROPHYLAXIS forvenous thrombosis, systemic embolization; TREATMENT for venous thrombosis and/or pulmonary embolus.HIGH RISK: Target INR is 2.5-3.5 for patients with mechanical heart valves.HEMOGLOBIN AND [id number] 23:26:00 Test Item Value Reference Range Interpretation Comments HEMOGLOBIN (BEAKER) (test code = 6.9 GM/DL 13.7-17.5 L 410) HEMATOCRIT (BEAKER) (test code = 21.4 % 40.1-51.0 L 411) Automation Engineering Technician ID - 6000POCT-GLUCOSE [id number] 12:19:00 Test Item Value Reference Range Interpretation Comments POC-GLUCOSE METER 123 mg/dL 70-110 H : TESTED A T [facility] 6720 (BEAKER) (test code [facility], = 1538) [address]: Automation Engineering Technician/Techni won ID = [id number] for Maikel robledo (contract), Syt damien RAD, CHEST, 1 VIEW, NON [id number] 07:27:00Reason for exam:->Pulmonary vascular congestion; ESRD on HDShould this be performed at the bedside?->Yes [facility] 1975 Sex: MFINAL REPORT CLINICAL HISTORY: Pulmonary vascular congestion; ESRD on HD TECHNIQUE: 1 view of the chest. COMPARISON: 02/14/2021 IMPRESSION: The right central line is unchanged. Diffuse bilateral airspace opacities appear slightly increased. Small pleural effusions cannot be excluded. Cardiomegaly is again seen poststernotomy with valvular repair. Signed: Melodie Zarate MDReport Verified Date/Time: 02/15/2021 07:27:43 Reading Location: [facility] Radiology Reading Room BASIC METABOLIC [id number] 06:32:00 Test Item Value Reference Range Interpretation [...] S NOT APPLICABLE FOR DIALYSIS PATIEN TS. Automation Engineering Technician ID - LINA [id number] 06:31:00 Test Item Value Reference Range Interpretation Comments MAGNESIUM (BEAKER) (test code = 1.7 mg/dL 1.6-2.6 627) Automation Engineering Technician ID - LINA [id number] 06:31:00 Test Item Value Reference Range Interpretation Comments PHOSPHORUS (BEAKER) (test code = 3.6 mg/dL 2.3-4.7 604) Automation Engineering Technician ID - LINA LCBC W/PLT COUNT & AUTO [id number] 06:22:00 Test Item Value Reference Range Interpretation [...] PERCENT (BEAKER) (test code = 2801) CALCIUM, [id number] 06:13:00 Test Item Value Reference Range Interpretation Comments CALCIUM IONIZED (BEAKER) (test 1.18 mmol/L 1.12-1.27 code = 698) PH, BLOOD (BEAKER) (test code = 7.41 1810) SARS-COV2/RT-PCR ([facility])2021-02-15 02:44:00 Test Item Value Reference Range Interpretation Comments SARS-COV2/RT-PCR (test code = Negative Negative 4442123) Negative result for this test determines that [...] the Mcdonald SARS-CoV-2 assay.Fact Sheet for Healthcare Providers:https://www.[employer]uespec.mcdonald/jermaine/RT SARS-CoV-2 HCP Fact Sheet 51- 350858.pdfFact Sheet for Healthcare Patients:https://www.[employer]uespec.mcdonald/jermaine/RT SARS-CoV-2 Patient Fact Sheet EN 51-011371U3.pdfBASIC METABOLIC [id number] 23:48:00 Test Item Value Reference Range Interpretation [...] S NOT APPLICABLE FOR DIALYSIS PATIEN TS. Automation Engineering Technician ID - LINA [id number] 23:39:00 Test Item Value Reference Range Interpretation Comments MAGNESIUM (BEAKER) 2.0 mg/dL 1.6-2.6 Specimen slightly (test code = 627) hemolyzed Automation Engineering Technician ID - LINA [id number] 23:39:00 Test Item Value Reference Range Interpretation Comments PHOSPHORUS (BEAKER) 6.0 mg/dL 2.3-4.7 H Specimen slightly (test code = 604) hemolyzed Automation Engineering Technician ID - LINA LPOCT-GLUCOSE [id number] 18:16:00 Test Item Value Reference Range Interpretation Comments POC-GLUCOSE METER 130 mg/dL 70-110 H : TESTED A T [facility] 6720 (BEAKER) (test code = [employer] [facility], 1538) [address]: Automation Engineering Technician/Techni won ID = [id number] for Da vis, Paige RAD, CHEST, 1 VIEW, NON [id number] 08:33:00Reason for exam:->Pulmonary vascular congestion; ESRD on HDShould this be performed at the bedside?->Yes [facility] : 1975 Sex: MFINAL REPORT [...] Castro Verified Date/Time: 02/14/2021 08:33:43 Reading Location: [facility] Diagnostic Imaging Reading Room - [place] [address] HEPATITIS B SURFACE [id number] 07:31:00 Test Item Value Reference Range Interpretation Comments HEPATITIS B SURFACE ANTIGEN (2) Nonreactive Nonreactive (BEAKER) (test code = 2585) Specimen is considered negative for HBsAg.BASIC METABOLIC [id number] 06:29:00 Test Item Value Reference Range Interpretation [...] S NOT APPLICABLE FOR DIALYSIS PATIEN TS. Automation Engineering Technician ID - VALDEZ [id number] 06:12:00 Test Item Value Reference Range Interpretation Comments MAGNESIUM (BEAKER) (test code = 1.9 mg/dL 1.6-2.6 627) Automation Engineering Technician ID - VALDEZ [id number] 06:12:00 Test Item Value Reference Range Interpretation Comments PHOSPHORUS (BEAKER) (test code = 4.1 mg/dL 2.3-4.7 604) Automation Engineering Technician ID - VALDEZ MPROTHROMBIN TIME/[id number] 06:07:00 Test Item Value Reference Range Interpretation Comments PROTIME (BEAKER) 24.0 seconds 11.9-14.2 H (test code = 759) INR (BEAKER) (test 2.17 See_Comment [Automat ed message] code = 370) The system [employer] generated this result transmitted ref erence range: [...] (BEAKER) (test code = 2801) BLOOD GAS, [id number] 05:49:00 Test Item Value Reference Range Interpretation [...] (BEAKER) (test code = 1819) 40.0 CALCIUM, [id number] 05:48:00 Test Item Value Reference Range Interpretation Comments CALCIUM IONIZED (BEAKER) (test 1.12 mmol/L 1.12-1.27 code = 698) PH, BLOOD (BEAKER) (test code = 7.41 1810) BASIC METABOLIC [id number] 04:12:00 Test Item Value Reference Range Interpretation [...] S NOT APPLICABLE FOR DIALYSIS PATIEN TS. Automation Engineering Technician ID - VALDEZ MOperator SHELBI - LINA LPROTHROMBIN TIME/[id number] 03:42:00 Test Item Value Reference Range Interpretation Comments PROTIME (BEAKER) 25.4 seconds 11.9-14.2 H (test code = 759) INR (BEAKER) (test 2.34 See_Comment [Automat ed message] code = 370) The system [employer] generated this result transmitted ref erence range: <=5.90. The reference range was not used to int erpret this result as normal/abnormal . RECOMMENDED COUMADIN/WARFARIN INR THERAPY RANGESSTANDARD DOSE: 2.0 - 3.0 Includes: PROPHYLAXIS forvenous thrombosis, systemic embolization; TREATMENT for venous thrombosis and/or pulmonary embolus.HIGH RISK: Target INR is 2.5-3.5 for patients with mechanical heart valves.[id number] 03:40:00 Test Item Value Reference Range Interpretation Comments MAGNESIUM (BEAKER) (test code = 2.0 mg/dL 1.6-2.6 627) Automation Engineering Technician ID - LINA [id number] 03:19:00 Test Item Value Reference Range Interpretation Comments PHOSPHORUS (BEAKER) (test code = 7.9 mg/dL 2.3-4.7 H 604) Automation Engineering Technician ID - VALDEZ MCBC W/PLT COUNT & AUTO [id number] 03:06:00 Test Item Value Reference Range Interpretation [...] (BEAKER) (test code = 2801) BLOOD GAS, [id number] 03:01:00 Test Item Value Reference Range Interpretation [...] (BEAKER) (test code = 1819) 100.0 CALCIUM, [id number] 03:01:00 Test Item Value Reference Range Interpretation Comments CALCIUM IONIZED (BEAKER) (test 1.12 mmol/L 1.12-1.27 code = 698) PH, BLOOD (BEAKER) (test code = 7.35 1810) RAD, CHEST, 1 VIEW, NON [id number] 23:28:00Reason for exam:->assess volume statusShould this be performed at the bedside?->Yes [facility] 1975 Sex: [...] 02/13/2021 23:28:46 RAD, CHEST, 1 VIEW, NON [id number] 23:20:00Reason for exam:->difficulty of breathingShould this be performed at the bedside?->[facility] : 1975 Sex: MFINAL REPORT [...] Krishnan Verified Date/Time: 02/13/2021 23:20:13 POCT-BLOOD GASES, [id number] 23:09:00 Test Item Value Reference Range Interpretation [...] EXCESS, -1.0 meq/L -2.0-3.0 : TESTED AT [facility] 6720 ARTERIAL-POC [facility], (BEAKER) (test code [address]: = 1841) Automation Engineering Technician/Techni won ID = [id number] for SUBI A, ARGELIA [id number] 23:09:00 Test Item Value Reference Range Interpretation Comments POC-SODIUM (BEAKER) 135 meq/L 135-148 : TESTED AT [place] [address] (test code = 1542) [facility], [address]: Automation Engineering Technician/Techni won ID = [id number] for SUBI A, ARGELIA [id number] 23:09:00 Test Item Value Reference Range Interpretation Comments POC-POTASSIUM 5.7 meq/L 3.6-5.5 H : TESTED AT [place] [address] (BEAKER) (test code [facility], = 1540) [address]: Automation Engineering Technician/Techni won ID = [id number] for SUBI A, ARGELIA [id number] 23:09:00 Test Item Value Reference Range Interpretation Comments POC-HEMOGLOBIN 9.5 g/dL 13.0-16.8 L : TESTED AT [place] [address] (BEAKER) (test code = [facility], 1856) [address]: Automation Engineering Technician/Techni won ID = [id number] for SUBI A, ARGELIA [id number] 23:09:00 Test Item Value Reference Range Interpretation Comments POC-HEMATOCRIT 28 % 40-50 L : Automation Engineering Technician/Te chnician ID = (BEAKER) (test code = 576229 for ARGELIA ORTEGA 1857) [id number] 23:09:00 Test Item Value Reference Range Interpretation Comments POC-GLUCOSE (BEAKER) 97 mg/dL 70-110 : [facility] (test code = 1855) [facility], [address]: Automation Engineering Technician/Techni won ID = [id number] for SUBI A, ARGELIA POCT-GLUCOSE [id number] 22:30:00 Test Item Value Reference Range Interpretation Comments POC-GLUCOSE METER 102 mg/dL 70-110 : [facility] (BEAKER) (test code = [facility], 1538) [address]: Automation Engineering Technician/Techni won ID = [id number] for DE NNJERAMIE, FRED POCT-GLUCOSE [id number] 17:26:00 Test Item Value Reference Range Interpretation Comments POC-GLUCOSE METER 85 mg/dL 70-110 : [facility] (test code [facility], = 1538) [address]: Automation Engineering Technician/Techni won ID = [id number] for DORIAN SHAHID BASIC METABOLIC [id number] 07:01:00 Test Item Value Reference Range Interpretation [...] S NOT APPLICABLE FOR DIALYSIS PATIEN TS. Automation Engineering Technician ID - KENNETH [id number] 06:57:00 Test Item Value Reference Range Interpretation Comments MAGNESIUM (BEAKER) (test code = 2.0 mg/dL 1.6-2.6 627) Automation Engineering Technician ID - KENNETH [id number] 06:57:00 Test Item Value Reference Range Interpretation Comments PHOSPHORUS (BEAKER) (test code = 6.2 mg/dL 2.3-4.7 H 604) Automation Engineering Technician ID Doretha COOPER WPROTHROMBIN TIME/[id number] 06:18:00 Test Item Value Reference Range Interpretation Comments PROTIME (BEAKER) 25.8 seconds 11.9-14.2 H (test code = 759) INR (BEAKER) (test 2.39 See_Comment [Automat ed message] code = 370) The system [employer] generated this result transmitted ref erence range: <=5.90. The reference range was not used to int erpret this result as normal/abnormal . RECOMMENDED COUMADIN/WARFARIN INR THERAPY RANGESSTANDARD DOSE: 2.0 - 3.0 Includes: PROPHYLAXIS forvenous thrombosis, systemic embolization; TREATMENT for venous thrombosis and/or pulmonary embolus.HIGH RISK: Target INR is 2.5-3.5 for patients with mechanical heart valves.CALCIUM, [id number] 06:05:00 Test Item Value Reference Range Interpretation Comments CALCIUM IONIZED (BEAKER) (test 1.17 mmol/L 1.12-1.27 code = 698) PH, BLOOD (BEAKER) (test code = 7.39 1120) CBC W/PLT COUNT & AUTO [id number] 05:52:00 Test Item Value Reference Range Interpretation [...] PERCENT (BEAKER) (test code = 2801) POCT-GLUCOSE [id number] 20:40:00 Test Item Value Reference Range Interpretation Comments POC-GLUCOSE METER 94 mg/dL 70-110 : Notified RN/MD: TESTED (BEAKER) (test code = AT [facility] [address] [facility] 1538) [facility], [address]: Automation Engineering Technician/Techni won ID = [id number] for MICHELLE DAMIAN POCT-GLUCOSE [id number] 18:06:00 Test Item Value Reference Range Interpretation Comments POC-GLUCOSE METER 114 mg/dL 70-110 H : TESTED A T [facility] 6720 (BEAKER) (test code = [facility], 1538) [address]: Automation Engineering Technician/Techni won ID = [id number] for Kendy Sparrow HEMOGLOBIN AND [id number] 13:01:00 Test Item Value Reference Range Interpretation Comments HEMOGLOBIN (BEAKER) (test code = 8.7 GM/DL 13.7-17.5 L 410) HEMATOCRIT (BEAKER) (test code = 27.0 % 40.1-51.0 L 411) Automation Engineering Technician ID - [id number]-GLUCOSE [id number] 11:48:00 Test Item Value Reference Range Interpretation Comments POC-GLUCOSE METER 96 mg/dL 70-110 : TESTED A T [facility] 6720 (BEAKER) (test code = [facility], 1538) [address]: Automation Engineering Technician/Techni won ID = [id number] for Bent on, Gladys [id number] 10:57:00 Test Item Value Reference Range Interpretation Comments HAPTOGLOBIN (BEAKER) (test code = < mg/dL 14-258 L 366) Automation Engineering Technician ID - AAHAMIDPLASMA FREE [id number] 10:29:00 Test Item Value Reference Range Interpretation Comments HEMOGLOBIN PLASMA (BEAKER) (test 20.0 mg/dl 0.0-30.0 code = 1054) HEPATIC FUNCTION [id number] 10:21:00 Test Item Value Reference Range Interpretation [...] (test code = 42 U/L 6-55 347) Automation Engineering Technician ID - KENNETH MADERAAD, CHEST, 1 VIEW, NON [id number] 07:07:00Reason for exam:->intubatedShould this be performed at the bedside?->Yes [facility] 1975 Sex: [...] 444 U/L 125-220 H code = 635) Automation Engineering Technician ID - KENNETH WBASIC METABOLIC [id number] 05:03:00 Test Item Value Reference Range Interpretation [...] S NOT APPLICABLE FOR DIALYSIS PATIEN TS. Automation Engineering Technician ID - KENNETH [id number] 04:57:00 Test Item Value Reference Range Interpretation Comments MAGNESIUM (BEAKER) (test code = 2.1 mg/dL 1.6-2.6 627) Automation Engineering Technician ID - KENNETH [id number] 04:57:00 Test Item Value Reference Range Interpretation Comments PHOSPHORUS (BEAKER) (test code = 7.1 mg/dL 2.3-4.7 H 604) Automation Engineering Technician ID - KENNETH WCALCIUM, [id number] 04:35:00 Test Item Value Reference Range Interpretation Comments CALCIUM IONIZED (BEAKER) (test 1.09 mmol/L 1.12-1.27 L code = 698) PH, BLOOD (BEAKER) (test code = 7.37 1810) PROTHROMBIN [id number] 04:31:00 Test Item Value Reference Range Interpretation Comments PROTIME (BEAKER) 22.9 seconds 11.9-14.2 H (test code = 759) INR (BEAKER) (test 2.05 See_Comment [Automat ed message] code = 370) The system [employer] generated this result transmitted ref erence range: [...] PERCENT (BEAKER) (test code = 2801) POCT-GLUCOSE [id number] 21:06:00 Test Item Value Reference Range Interpretation Comments POC-GLUCOSE METER 108 mg/dL 70-110 : TESTED A T [facility] 6720 (BEAKER) (test code [facility], = 1538) 61771: Automation Engineering Technician/Techni won ID = [id number] for Moni szymanski (contract)Rola faustino LACTATE DEHYDROGENASE (LDH)2021-02-11 10:34:00 Test Item Value Reference Range Interpretation Comments LACTATE DEHYDROGENASE (BEAKER) (test 559 U/L 125-220 H code = 635) Automation Engineering Technician ID - AAHAMIDPOCT-GLUCOSE [id number] 07:41:00 Test Item Value Reference Range Interpretation Comments POC-GLUCOSE METER 86 mg/dL 70-110 : TESTED A T [facility] 6720 (BEAKER) (test code = [facility], 1538) 54941: Automation Engineering Technician/Techni won ID = [id number] for COSME NORMAN BASIC METABOLIC [id number] 06:26:00 Test Item Value Reference Range Interpretation [...] S NOT APPLICABLE FOR DIALYSIS PATIEN TS. Automation Engineering Technician ID - [id number] 06:07:00 Test Item Value Reference Range Interpretation Comments MAGNESIUM (BEAKER) (test code = 2.0 mg/dL 1.6-2.6 627) Automation Engineering Technician ID - [id number] 06:07:00 Test Item Value Reference Range Interpretation Comments PHOSPHORUS (BEAKER) (test code = 6.1 mg/dL 2.3-4.7 H 604) Automation Engineering Technician ID - DBRAD, CHEST, 1 VIEW, NON [id number] 05:49:00Reason for exam:- >intubatedShould this be performed at the bedside?->Yes [facility] : 1975 Sex: MFINAL REPORT [...] 02/11/2021 05:49:15 CBC W/PLT COUNT & AUTO [id number] 05:29:00 Test Item Value Reference Range Interpretation [...] PERCENT (BEAKER) (test code = 2801) POCT-GLUCOSE [id number] 21:00:00 Test Item Value Reference Range Interpretation Comments POC-GLUCOSE METER 137 mg/dL 70-110 H : TESTED A T [facility] 6720 (BEAKER) (test code = NORM Tenorio [facility], 1538) 08876: Automation Engineering Technician/Techni won ID = [id number] for Manuelito Chavez BASIC METABOLIC [id number] 17:01:00 Test Item Value Reference Range Interpretation [...] S NOT APPLICABLE FOR DIALYSIS PATIEN TS. Automation Engineering Technician ID - [id number] 17:00:00 Test Item Value Reference Range Interpretation Comments POTASSIUM (BEAKER) (test code = 4.2 meq/L 3.5-5.1 379) [id number] 17:00:00 Test Item Value Reference Range Interpretation Comments MAGNESIUM (BEAKER) (test code = 2.0 mg/dL 1.6-2.6 627) Automation Engineering Technician ID - DBLACTATE DEHYDROGENASE (LDH)2021-02-10 17:00:00 Test Item Value Reference Range Interpretation Comments LACTATE DEHYDROGENASE (BEAKER) (test 506 U/L 125-220 H code = 635) Automation Engineering Technician ID - DBCBC W/PLT COUNT & AUTO [id number] 16:38:00 Test Item Value Reference Range Interpretation [...] PERCENT (BEAKER) (test code = 2801) POCT-GLUCOSE [id number] 14:15:00 Test Item Value Reference Range Interpretation Comments POC-GLUCOSE METER 135 mg/dL 70-110 H : TESTED A T [facility] 6720 (BEAKER) (test code = [facility] [place], 1538) 84586: Automation Engineering Technician/Techni won ID = [id number] for Paige Russell [id number] 11:35:00 Test Item Value Reference Range Interpretation Comments PREALBUMIN (BEAKER) (test code = 20 mg/dL 14-45 586) Automation Engineering Technician ID - DBC-REACTIVE [id number] 10:53:00 Test Item Value Reference Range Interpretation Comments C-REACTIVE PROTEIN (BEAKER) (test 2.09 mg/dL 0.00-0.50 H code = 676) Automation Engineering Technician ID - DBRAD, CHEST, 1 VIEW, NON [id number] 07:13:00Reason for exam:- >intubatedShould this be performed at the bedside?->Yes [facility] : 1975 Sex: MFINAL REPORT RAD, CHEST, 1 VIEW, NON DEPT INDICATION: intubated TESFAYE RISON: Prior day's exam FINDINGS: Portable frontal view of the chest. IMPRESSION: Support Lines: Stable. Lungs and pleura: Unchanged interstitial, airspace, and pleural opacities. No pneumothorax.Heart and mediastinum: Stable contours. Stable surgical changes.Additional findings: None. Signed: Monico lindsay JR, Taye Taylor Verified Date/Time: 02/10/2021 07:13:47 Reading Location: [facility] Radiology Reading Room CALCIUM, [id number] 03:42:00 Test Item Value Reference Range Interpretation Comments CALCIUM IONIZED (BEAKER) (test 1.24 mmol/L 1.12-1.27 code = 698) PH, BLOOD (BEAKER) (test code = 7.40 1810) BASIC METABOLIC [id number] 03:33:00 Test Item Value Reference Range Interpretation [...] S NOT APPLICABLE FOR DIALYSIS PATIEN TS. Automation Engineering Technician ID - KENNETH [id number] 03:32:00 Test Item Value Reference Range Interpretation Comments MAGNESIUM (BEAKER) (test code = 2.3 mg/dL 1.6-2.6 627) Automation Engineering Technician ID - KENNETH [id number] 03:32:00 Test Item Value Reference Range Interpretation Comments PHOSPHORUS (BEAKER) (test code = 7.1 mg/dL 2.3-4.7 H 604) Automation Engineering Technician SHELBI COOPER WPROTHROMBIN TIME/[id number] 03:31:00 Test Item Value Reference Range Interpretation Comments PROTIME (BEAKER) 18.9 seconds 11.9-14.2 H (test code = 759) INR (BEAKER) (test 1.61 See_Comment [Automat ed message] code = 370) The system [employer] generated this result transmitted ref erence range: [...] PERCENT (BEAKER) (test code = 2801) POCT-GLUCOSE [id number] 22:04:00 Test Item Value Reference Range Interpretation Comments POC-GLUCOSE METER 125 mg/dL 70-110 H : TESTED A T [facility] 6720 (BEAKER) (test code = [facility], 153) 25694: Automation Engineering Technician/Techni won ID = [id number] for September POCT-GLUCOSE [id number] 16:29:00 Test Item Value Reference Range Interpretation Comments POC-GLUCOSE METER 112 mg/dL 70-110 H : TESTED A T [facility] 6720 (BEAKER) (test code = [facility], 153) 04618: Automation Engineering Technician/Techni won ID = [id number] for DELMER SHANTHIMARSHALLTHOMAS POCT-GLUCOSE [id number] 11:26:00 Test Item Value Reference Range Interpretation Comments POC-GLUCOSE METER 97 mg/dL 70-110 : TESTED A T [facility] 6720 (BEAKER) (test code = [facility], 1538) 00457: Automation Engineering Technician/Techni won ID = [id number] for DIPESH Rubi, THOMAS POCT-GLUCOSE [id number] 07:49:00 Test Item Value Reference Range Interpretation Comments POC-GLUCOSE METER 82 mg/dL 70-110 : TESTED A T [facility] 6720 (BEAKER) (test code = [facility] [place] [place], 1538) 61374: Automation Engineering Technician/Techni won ID = [id number] for THOMAS STEVENS BASIC METABOLIC [id number] 05:07:00 Test Item Value Reference Range Interpretation [...] S NOT APPLICABLE FOR DIALYSIS PATIEN TS. Automation Engineering Technician ID - VALDEZ [id number] 05:01:00 Test Item Value Reference Range Interpretation Comments MAGNESIUM (BEAKER) (test code = 2.2 mg/dL 1.6-2.6 627) Automation Engineering Technician ID - VALDEZ [id number] 05:01:00 Test Item Value Reference Range Interpretation Comments PHOSPHORUS (BEAKER) (test code = 5.4 mg/dL 2.3-4.7 H 604) Automation Engineering Technician ID - VALDEZ MCALCIUM, [id number] 04:47:00 Test Item Value Reference Range Interpretation Comments CALCIUM IONIZED (BEAKER) (test 1.22 mmol/L 1.12-1.27 code = 698) PH, BLOOD (BEAKER) (test code = 7.42 1810) PROTHROMBIN TIME/[id number] 04:38:00 Test Item Value Reference Range Interpretation Comments PROTIME (BEAKER) 18.8 seconds 11.9-14.2 H (test code = 759) INR (BEAKER) (test 1.60 See_Comment [Automat ed message] code = 370) The system [employer] generated this result transmitted ref erence range: [...] = 2801) RAD, CHEST, 1 VIEW, NON [id number] 04:04:00Reason for exam:- >intubatedShould this be performed at the bedside?->Yes [facility] : 1975 Sex: MFINAL REPORT RAD, CHEST, 1 VIEW, NON DEPT INDICATION: intubated TESFAYE RISON: Prior day's exam FINDINGS: Portable frontal view of the chest. IMPRESSION: Support Lines: Stable. Lungs and pleura: Unchanged bilateral airspace and pleural opacities. No pneumothorax.Heart and mediastinum: Stable contours and postsurgical changes.Additional findings: None. Signed: Pedro Krishnan [facility]USeport Verified Date/Time: 02/09/2021 04:04:14 POCT-GLUCOSE [id number] 22:18:00 Test Item Value Reference Range Interpretation Comments POC-GLUCOSE METER 98 mg/dL 70-110 : TESTED A T [facility] 6720 (BEAKER) (test code = NORM Tenorio [facility], 1538) 78315: Automation Engineering Technician/Techni won ID = [id number] for MESERET DELVALLESeptember [id number] 19:37:00 Test Item Value Reference Range Interpretation Comments MAGNESIUM (BEAKER) 1.9 mg/dL 1.6-2.6 Specimen slightly (test code = 627) hemolyzed Automation Engineering Technician ID - BSHEMOGLOBIN AND [id number] 19:16:00 Test Item Value Reference Range Interpretation Comments HEMOGLOBIN (BEAKER) (test code = 8.3 GM/DL 13.7-17.5 L 410) HEMATOCRIT (BEAKER) (test code = 24.9 % 40.1-51.0 L 411) Automation Engineering Technician ID - 6000POCT-GLUCOSE [id number] 17:27:00 Test Item Value Reference Range Interpretation Comments POC-GLUCOSE METER 82 mg/dL 70-110 : TESTED A T [facility] 6720 (BEAKER) (test code = [facility], 1538) 93035: Automation Engineering Technician/Techni won ID = [id number] for RONAL BROCK [id number] 15:52:00 Test Item Value Reference Range Interpretation Comments FERRITIN (BEAKER) (test code = 2985.27 ng/mL 5.00-275.00 H 361) Automation Engineering Technician ID - BSOperator ID - BSIRON, TIBC, % SAT. (WITHOUT FERRITIN)2021-02-08 14:59:00 Test Item Value Reference Range Interpretation Comments IRON (BEAKER) (test code = 547) 68.0 ug/dL 40.0-160.0 TOTAL IRON BINDING CAPACITY 136 ug/dL 250-450 L (BEAKER) (test code = 769) IRON % SATURATION (2) (BEAKER) 50 % 20-55 (test code = 2590) Automation Engineering Technician ID - BSPROTHROMBIN TIME/[id number] 14:45:00 Test Item Value Reference Range Interpretation Comments PROTIME (BEAKER) 19.5 seconds 11.9-14.2 H (test code = 759) INR (BEAKER) (test 1.67 See_Comment [Automat ed message] code = 370) The system [employer] generated this result transmitted ref erence range: <=5.90. The reference range was not used to int erpret this result as normal/abnormal . RECOMMENDED COUMADIN/WARFARIN INR THERAPY RANGESSTANDARD DOSE: 2.0 - 3.0 Includes: PROPHYLAXIS forvenous thrombosis, systemic embolization; TREATMENT for venous thrombosis and/or pulmonary embolus.HIGH RISK: Target INR is 2.5-3.5 for patients with mechanical heart valves.POCT-GLUCOSE [id number] 11:26:00 Test Item Value Reference Range Interpretation Comments POC-GLUCOSE METER 112 mg/dL 70-110 H : TESTED A T [facility] 6720 (BEAKER) (test code = NORM [facility], 1538) 76553: Automation Engineering Technician/Techni won ID = [id number] for BETH PEREZAN POCT-GLUCOSE [id number] 07:47:00 Test Item Value Reference Range Interpretation Comments POC-GLUCOSE METER 75 mg/dL 70-110 : TESTED A T [facility] 6720 (BEAKER) (test code = [employer] Ten[facility], 1538) 80483: Automation Engineering Technician/Techni won ID = [id number] for RONAL BROCK RAD, CHEST, 1 VIEW, NON [id number] 07:43:00Reason for exam:- >intubatedShould this be performed at the bedside?->Yes [facility] : 1975 Sex: MFINAL REPORT RAD, CHEST, 1 VIEW, NON DEPT INDICATION: intubated TESFAYE RISON: Prior day's exam FINDINGS: Portable frontal view of the chest. IMPRESSION: Support Lines: Stable. Lungs and pleura: Worsening interstitial edema and effusions. No pneumothorax.Heart and mediastinum: Stable contours. Stable surgical changes.Additional findings: None. Signed: JR Tate Robert MDReport Verified Date/Time: 02/08/2021 07:43:26 Reading Location: [facility] Radiology Reading Room BASIC METABOLIC [id number] 04:08:00 Test Item Value Reference Range Interpretation [...] S NOT APPLICABLE FOR DIALYSIS PATIEN TS. Automation Engineering Technician ID - PIRAFY [id number] 04:07:00 Test Item Value Reference Range Interpretation Comments MAGNESIUM (BEAKER) (test code = 1.7 mg/dL 1.6-2.6 627) Automation Engineering Technician ID - LINA [id number] 04:07:00 Test Item Value Reference Range Interpretation Comments PHOSPHORUS (BEAKER) (test code = 6.1 mg/dL 2.3-4.7 H 604) Automation Engineering Technician ID - PIRAFY LCALCIUM, [id number] 04:02:00 Test Item Value Reference Range Interpretation Comments CALCIUM IONIZED (BEAKER) (test 1.19 mmol/L 1.12-1.27 code = 698) PH, BLOOD (BEAKER) (test code = 7.40 1810) CBC W/PLT COUNT & AUTO [id number] 03:56:00 Test Item Value Reference Range Interpretation [...] PERCENT (BEAKER) (test code = 2801) PROTHROMBIN TIME/[id number] 03:52:00 Test Item Value Reference Range Interpretation Comments PROTIME (BEAKER) 19.3 seconds 11.9-14.2 H (test code = 759) INR (BEAKER) (test 1.65 See_Comment [Automat ed message] code = 370) The system [employer] generated this result transmitted ref erence range: <=5.90. The reference range was not used to int erpret this result as normal/abnormal . RECOMMENDED COUMADIN/WARFARIN INR THERAPY RANGESSTANDARD DOSE: 2.0 - 3.0 Includes: PROPHYLAXIS forvenous thrombosis, systemic embolization; TREATMENT for venous thrombosis and/or pulmonary embolus.HIGH RISK: Target INR is 2.5-3.5 for patients with mechanical heart valves.POCT-GLUCOSE [id number] 22:32:00 Test Item Value Reference Range Interpretation Comments POC-GLUCOSE METER 93 mg/dL 70-110 : TESTED A T [facility] 6720 (BEAKER) (test code = [employer] [facility], 1538) 48819: Automation Engineering Technician/Techni won ID = [id number] for MESERET DELVALLESeptember POCT-GLUCOSE [id number] 17:21:00 Test Item Value Reference Range Interpretation Comments POC-GLUCOSE METER 81 mg/dL 70-110 : TESTED A T [facility] 6720 (BEAKER) (test code = [employer] [facility], 1538) 57852: Automation Engineering Technician/Techni won ID = [id number] for RONAL BROCK HEMOGLOBIN AND [id number] 13:35:00 Test Item Value Reference Range Interpretation Comments HEMOGLOBIN (BEAKER) (test code = 7.1 GM/DL 13.7-17.5 L 410) HEMATOCRIT (BEAKER) (test code = 21.6 % 40.1-51.0 L 411) Automation Engineering Technician ID - [id number]-GLUCOSE [id number] 12:35:00 Test Item Value Reference Range Interpretation Comments POC-GLUCOSE METER 90 mg/dL 70-110 : TESTED Elias Dominguez [facility] 6720 (TAMARA) (test code = [facility] [place], 1538) 98312: Automation Engineering Technician/Techni won ID = [id number] for RONAL BROCK CT, BRAIN, WITHOUT [id number] 11:47:00Reason for exam:->lt hemiparesis What is the patient's sedation requirement?->No Sedation [facility] : 1975 Sex: MAddendum BeginsREPORT STATUS:A Addendum: Questionable subcentimeter region of infarction within the right inferior frontal lobe (axial image 19), not seen on prior exam.Findings discussed with ordering provider by Dr. Cantu at time of this addendum. Signed: Re Cantu MDReport Verified Date/Time: 02/07/2021 11:47:29 Reading Location: [facility] C013V Neuro Reading RoomAddendum EndsFINAL REPORT CT, [...] Cantu MDReport Verified Date/Time:02/07/2021 10:56:22 Reading Location: [address] Neuro Reading Room POCT-GLUCOSE METER 2021-02-07 07:42:00 Test Item Value Reference Range Interpretation Comments POC-GLUCOSE METER 104 mg/dL 70-110 : TESTED A T [facility] 6720 (BEAKER) (test code = NORM [facility], 1538) 87242: Automation Engineering Technician/Techni won ID = [id number] for LACY Karis RONAL RAD, CHEST, 1 VIEW, NON [id number] 07:24:00Reason for exam:- >intubatedShould this be performed at the bedside?->Yes [facility] : 1975 Sex: MFINAL REPORT RAD, CHEST, 1 VIEW, NON DEPT INDICATION: intubated TESFAYE RISON: Prior day's exam FINDINGS: Portable frontal view of the chest. IMPRESSION: Support Lines: Stable. Lungs and pleura: Improved but persistent interstitial edema. No pneumothorax.Heart and mediastinum: Stable contours. Stable surgical changes.Additional findings: None. Signed: JR Bebeto, Taye Taylor Verified Date/Time: 02/07/2021 07:24:30 Reading Location: [facility] Radiology Reading Room CALCIUM, [id number] 05:07:00 Test Item Value Reference Range Interpretation Comments CALCIUM IONIZED (BEAKER) (test 1.17 mmol/L 1.12-1.27 code = 698) PH, BLOOD (BEAKER) (test code = 7.45 1810) BASIC METABOLIC [id number] 03:45:00 Test Item Value Reference Range Interpretation [...] S NOT APPLICABLE FOR DIALYSIS PATIEN TS. Automation Engineering Technician ID - VALDEZ [id number] 03:40:00 Test Item Value Reference Range Interpretation Comments MAGNESIUM (BEAKER) (test code = 1.7 mg/dL 1.6-2.6 627) Automation Engineering Technician ID - VALDEZ [id number] 03:40:00 Test Item Value Reference Range Interpretation Comments PHOSPHORUS (BEAKER) (test code = 4.9 mg/dL 2.3-4.7 H 604) Automation Engineering Technician ID - VALDEZ MPROTHROMBIN TIME/[id number] 03:29:00 Test Item Value Reference Range Interpretation Comments PROTIME (BEAKER) 18.4 seconds 11.9-14.2 H (test code = 759) INR (BEAKER) (test 1.55 See_Comment [Automat ed message] code = 370) The system [employer] generated this result transmitted ref erence range: [...] (test code = 2801) FUNGUS CULTURE + [id number] 22:52:00 Test Item Value Reference Range Interpretation Comments CULTURE (BEAKER) (test No fungus isolated in code = 1095) 28 days FUNGUS SMEAR (BEAKER) No fungi seen (test code = 1406) POCT-GLUCOSE [id number] 16:41:00 Test Item Value Reference Range Interpretation Comments POC-GLUCOSE METER 97 mg/dL 70-110 : TESTED A T [facility] 6720 (BEAKER) (test code = NORM [place], 1538) 55592: Automation Engineering Technician/Techni won ID = [id number] for IVONE ZHAO POCT-GLUCOSE [id number] 11:40:00 Test Item Value Reference Range Interpretation Comments POC-GLUCOSE METER 102 mg/dL 70-110 : TESTED A T [facility] 6720 (BEAKER) (test code = NORM [facility], 1538) 71204: Automation Engineering Technician/Techni won ID = [id number] for IVONE RIBEIRO HEPATIC FUNCTION [id number] 08:31:00 Test Item Value Reference Range Interpretation [...] (test code = 37 U/L 6-55 347) Automation Engineering Technician ID - VALDEZ CAROLD, CHEST, 1 VIEW, NON [id number] 07:58:00Reason for exam:->intubatedShould this be performed at the bedside?->Yes [facility] : 1975 Sex: MFINAL REPORT RAD, CHEST, 1 VIEW, NON DEPT INDICATION: intubated TESFAYE RISON: Prior day's exam FINDINGS: Portable frontal view of the chest. IMPRESSION: Support Lines: Stable. Lungs and pleura: Unchanged airspace and pleural opacities. No pneumothorax.Heart and mediastinum: Stable contours. Stable surgical changes.Additional findings: None. Signed: JR Tate Ro bert MDReport Verified Date/Time: 02/06/2021 07:58:22 Reading Location: [facility] Radiology Reading Room POCT-GLUCOSE [id number] 06:40:00 Test Item Value Reference Range Interpretation Comments POC-GLUCOSE METER 102 mg/dL 70-110 : TESTED A T [facility] 6720 (BEAKER) (test code = [facility] [place], 1538) 96289: Automation Engineering Technician/Techni won ID = [id number] for Cynthia Laird BASIC METABOLIC [id number] 04:44:00 Test Item Value Reference Range Interpretation [...] S NOT APPLICABLE FOR DIALYSIS PATIEN TS. Automation Engineering Technician ID - [id number] 04:20:00 Test Item Value Reference Range Interpretation Comments MAGNESIUM (BEAKER) (test code = 1.8 mg/dL 1.6-2.6 627) Automation Engineering Technician ID - [id number] 04:20:00 Test Item Value Reference Range Interpretation Comments PHOSPHORUS (BEAKER) (test code = 6.3 mg/dL 2.3-4.7 H 604) Automation Engineering Technician ID - DBPROTHROMBIN TIME/[id number] 04:19:00 Test Item Value Reference Range Interpretation Comments PROTIME (BEAKER) 22.0 seconds 11.9-14.2 H (test code = 759) INR (BEAKER) (test 1.95 See_Comment [Automat ed message] code = 370) The system [employer] generated this result transmitted ref erence range: <=5.90. The reference range was not used to int erpret this result as normal/abnormal . RECOMMENDED COUMADIN/WARFARIN INR THERAPY RANGESSTANDARD DOSE: 2.0 - 3.0 Includes: PROPHYLAXIS forvenous thrombosis, systemic embolization; TREATMENT for venous thrombosis and/or pulmonary embolus.HIGH RISK: Target INR is 2.5-3.5 for patients with mechanical heart valves.CALCIUM, [id number] 03:29:00 Test Item Value Reference Range Interpretation Comments CALCIUM IONIZED (BEAKER) (test 1.18 mmol/L 1.12-1.27 code = 698) PH, BLOOD (BEAKER) (test code = 7.43 1810) CBC W/PLT COUNT & AUTO [id number] 03:28:00 Test Item Value Reference Range Interpretation [...] PERCENT (BEAKER) (test code = 2801) POCT-GLUCOSE [id number] 21:26:00 Test Item Value Reference Range Interpretation Comments POC-GLUCOSE METER 115 mg/dL 70-110 H : TESTED A T [facility] 6720 (BEAKER) (test code = [facility], 1538) 03442: Automation Engineering Technician/Techni won ID = [id number] for Go Cynthia slaughter [id number] 18:57:00 Test Item Value Reference Range Interpretation Comments MAGNESIUM (BEAKER) (test code = 1.8 mg/dL 1.6-2.6 627) Automation Engineering Technician ID - LINA LPOCT-GLUCOSE [id number] 18:44:00 Test Item Value Reference Range Interpretation Comments POC-GLUCOSE METER 102 mg/dL 70-110 : TESTED A T [facility] 6720 (BEAKER) (test code = [facility], 153) 34924: Automation Engineering Technician/Techni won ID = [id number] for Am inu, Aleksandarfayat POCT-GLUCOSE [id number] 12:50:00 Test Item Value Reference Range Interpretation Comments POC-GLUCOSE METER 84 mg/dL 70-110 : TESTED A T [facility] 6720 (TAMARA) (test code = N[facility], 1538) 54720: Automation Engineering Technician/Techni won ID = [id number] for RONAL BROCK POCT-GLUCOSE [id number] 07:48:00 Test Item Value Reference Range Interpretation Comments POC-GLUCOSE METER 88 mg/dL 70-110 : TESTED A T [facility] 6720 (TAMARA) (test code = NORM [facility], 1538) [address]: Automation Engineering Technician/Techni won ID = [id number] for RONAL BROCK RAD, CHEST, 1 VIEW, NON [id number] 06:09:00Reason for exam:- >intubatedShould this be performed at the bedside?->Yes [facility] : 1975 Sex: MFINAL REPORT [...] Cantu Verified Date/Time: 02/05/2021 06:09:25 BASIC METABOLIC [id number] 04:35:00 Test Item Value Reference Range Interpretation [...] S NOT APPLICABLE FOR DIALYSIS PATIEN TS. Automation Engineering Technician ID - LINA [id number] 04:16:00 Test Item Value Reference Range Interpretation Comments MAGNESIUM (BEAKER) (test code = 1.6 mg/dL 1.6-2.6 627) Automation Engineering Technician ID - LINA [id number] 04:16:00 Test Item Value Reference Range Interpretation Comments PHOSPHORUS (BEAKER) (test code = 5.1 mg/dL 2.3-4.7 H 604) Automation Engineering Technician ID - LINA LCBC W/PLT COUNT & AUTO [id number] 04:13:00 Test Item Value Reference Range Interpretation [...] PERCENT (BEAKER) (test code = 2801) PROTHROMBIN [id number] 03:39:00 Test Item Value Reference Range Interpretation Comments PROTIME (BEAKER) 27.9 seconds 11.9-14.2 H (test code = 759) INR (BEAKER) (test 2.64 See_Comment [Automat ed message] code = 370) The system [employer] generated this result transmitted ref erence range: <=5.90. The reference range was not used to int erpret this result as normal/abnormal . RECOMMENDED COUMADIN/WARFARIN INR THERAPY RANGESSTANDARD DOSE: 2.0 - 3.0 Includes: PROPHYLAXIS forvenous thrombosis, systemic embolization; TREATMENT for venous thrombosis and/or pulmonary embolus.HIGH RISK: Target INR is 2.5-3.5 for patients with mechanical heart valves.CALCIUM, [id number] 03:35:00 Test Item Value Reference Range Interpretation Comments CALCIUM IONIZED (BEAKER) (test 1.11 mmol/L 1.12-1.27 L code = 698) PH, BLOOD (BEAKER) (test code = 7.48 1810) POCT-GLUCOSE [id number] 21:54:00 Test Item Value Reference Range Interpretation Comments POC-GLUCOSE METER 105 mg/dL 70-110 : TESTED A T [facility] 6720 (BEkubo financiero) (test code = NORM [facility], 1538) [address]: Automation Engineering Technician/Techni own ID = [id number] for September PROTHROMBIN [id number] 20:05:00 Test Item Value Reference Range Interpretation Comments PROTIME (BEAKER) 30.9 seconds 11.9-14.2 H (test code = 759) INR (BEAKER) (test 3.01 See_Comment [Automat ed message] code = 370) The system [employer] generated this result transmitted ref erence range: <=5.90. The reference range was not used to int erpret this result as normal/abnormal . RECOMMENDED COUMADIN/WARFARIN INR THERAPY RANGESSTANDARD DOSE: 2.0 - 3.0 Includes: PROPHYLAXIS forvenous thrombosis, systemic embolization; TREATMENT for venous thrombosis and/or pulmonary embolus.HIGH RISK: Target INR is 2.5-3.5 for patients with mechanical heart valves.POCT-GLUCOSE [id number] 19:04:00 Test Item Value Reference Range Interpretation Comments POC-GLUCOSE METER 128 mg/dL 70-110 H : TESTED A T [facility] 6720 (BEkubo financiero) (test code = NORM [facility], 1538) 23[address]: Automation Engineering Technician/Techni won ID = [id number] for Fo ntenotSengLevy CBC W/PLT COUNT & AUTO [id number] 15:37:00 Test Item Value Reference Range Interpretation [...] PERCENT (BEAKER) (test code = 2801) POCT-GLUCOSE [id number] 11:48:00 Test Item Value Reference Range Interpretation Comments POC-GLUCOSE METER 113 mg/dL 70-110 H : TESTED A T [facility] 6720 (BEAKER) (test code = NORM [facility], 1538) [address]: Automation Engineering Technician/Techni won ID = [id number] for THOMAS BRYANT POCT-GLUCOSE [id number] 07:41:00 Test Item Value Reference Range Interpretation Comments POC-GLUCOSE METER 119 mg/dL 70-110 H : TESTED A T [facility] 6720 (BEAKER) (test code = NORM [facility], 1538) 30461: Automation Engineering Technician/Techni won ID = [id number] for THOMAS BRYANT PROTHROMBIN TIME/[id number] 06:34:00 Test Item Value Reference Range Interpretation Comments PROTIME (BEAKER) 35.3 seconds 11.9-14.2 H (test code = 759) INR (BEAKER) (test 3.56 See_Comment [Automat ed message] code = 370) The system [employer] generated this result transmitted ref erence range: <=5.90. The reference range was not used to int erpret this result as normal/abnormal . RECOMMENDED COUMADIN/WARFARIN INR THERAPY RANGESSTANDARD DOSE: 2.0 - 3.0 Includes: PROPHYLAXIS forvenous thrombosis, systemic embolization; TREATMENT for venous thrombosis and/or pulmonary embolus.HIGH RISK: Target INR is 2.5-3.5 for patients with mechanical heart valves.RAD, CHEST, 1 VIEW, NON [id number] 06:02:00Reason for exam:->intubatedShould this be performed at the bedside?->[facility] : 1975 Sex: MFINAL REPORT [...] MDReport Verified Date/Time: 02/04/2021 06:02:13 BASIC METABOLIC [id number] 05:16:00 Test Item Value Reference Range Interpretation [...] S NOT APPLICABLE FOR DIALYSIS PATIEN TS. Automation Engineering Technician ID - VALDEZ [id number] 05:09:00 Test Item Value Reference Range Interpretation Comments PHOSPHORUS (BEAKER) (test code = 6.8 mg/dL 2.3-4.7 H 604) Automation Engineering Technician ID - VALDEZ [id number] 05:08:00 Test Item Value Reference Range Interpretation Comments MAGNESIUM (BEAKER) (test code = 1.9 mg/dL 1.6-2.6 627) Automation Engineering Technician ID - VALDEZ MCALCIUM, [id number] 05:01:00 Test Item Value Reference Range Interpretation Comments CALCIUM IONIZED (BEAKER) (test 1.12 mmol/L 1.12-1.27 code = 698) PH, BLOOD (BEAKER) (test code = 7.43 1810) CBC W/PLT COUNT & AUTO [id number] 04:49:00 Test Item Value Reference Range Interpretation [...] ABSOLUTE COUNT 7.15 K/ L 1.78-5.38 H ([facility]) (test code = 670) LYMPHOCYTES ABSOLUTE COUNT 0.85 K/ L 1.32-3.57 L (BEAKER) (test code = 414) MONOCYTES ABSOLUTE COUNT (BEAKER) 0.67 K/ L 0.30-0.82 (test code = 415) EOSINOPHILS ABSOLUTE COUNT 0.37 K/ L 0.04-0.54 (BEAKER) (test code = 416) BASOPHILS ABSOLUTE COUNT (BEAKER) 0.06 K/ L 0.01-0.08 (test code = 417) IMMATURE GRANULOCYTES-RELATIVE 0 % 0-1 PERCENT ([facility]) (test code = 2801) POCT-GLUCOSE [id number] 00:50:00 Test Item Value Reference Range Interpretation Comments POC-GLUCOSE METER 115 mg/dL 70-110 H : Notified RN/MD: ([facility]) (test code = TESTED AT [place] [address]) [facility], [address]: Automation Engineering Technician/Techni won ID = [id number] for Vinod Canas POCT-GLUCOSE [id number] 17:39:00 Test Item Value Reference Range Interpretation Comments POC-GLUCOSE METER 101 mg/dL 70-110 : TESTED A T [place] [address] ([facility]) (test code = [facility], 153) [address]: Automation Engineering Technician/Techni won ID = [id number] for RONAL PEREZ POCT-GLUCOSE [id number] 11:33:00 Test Item Value Reference Range Interpretation Comments POC-GLUCOSE METER 90 mg/dL 70-110 : TESTED A T [place] [address] ([facility]) (test code = [facility], [facility]) [address]: Automation Engineering Technician/Techni won ID = [id number] for VINOD, RONAL RAD, CHEST, 1 VIEW, NON [id number] 09:24:00Reason for exam:- >intubatedShould this be performed at the bedside?->Yes [facility] 1975 Sex: [...] Cantu Verified Date/Time: 02/03/2021 09:24:45 Reading Location: [facility] Radiology Reading Room POCT-GLUCOSE METER 2021-02-03 07:45:00 Test Item Value Reference Range Interpretation Comments POC-GLUCOSE METER 87 mg/dL 70-110 : TESTED A T [facility] 6720 (BEAKER) (test code [facility], = 1538) [address]: Automation Engineering Technician/Techni won ID = [id number] for Timmy hernandez [id number]), [facility] BASIC METABOLIC [id number] 05:08:00 Test Item Value Reference Range Interpretation [...] S NOT APPLICABLE FOR DIALYSIS PATIEN TS. Automation Engineering Technician ID - PIRAFY [id number] 05:07:00 Test Item Value Reference Range Interpretation Comments MAGNESIUM (BEAKER) (test code = 1.9 mg/dL 1.6-2.6 627) Automation Engineering Technician ID - PIRAFY [id number] 05:07:00 Test Item Value Reference Range Interpretation Comments PHOSPHORUS (BEAKER) (test code = 5.9 mg/dL 2.3-4.7 H 604) Automation Engineering Technician ID - PIRAFY LCALCIUM, [id number] 03:59:00 Test Item Value Reference Range Interpretation Comments CALCIUM IONIZED (BEAKER) (test 1.13 mmol/L 1.12-1.27 code = 698) PH, BLOOD (BEAKER) (test code = 7.43 1810) CBC W/PLT COUNT & AUTO [id number] 03:45:00 Test Item Value Reference Range Interpretation [...] PERCENT (BEAKER) (test code = 2801) PROTHROMBIN [id number] 03:38:00 Test Item Value Reference Range Interpretation Comments PROTIME (BEAKER) 28.4 seconds 11.9-14.2 H (test code = 759) INR (BEAKER) (test 2.70 See_Comment [Automat ed message] code = 370) The system [employer] generated this result transmitted ref erence range: <=5.90. The reference range was not used to int erpret this result as normal/abnormal . RECOMMENDED COUMADIN/WARFARIN INR THERAPY RANGESSTANDARD DOSE: 2.0 - 3.0 Includes: PROPHYLAXIS forvenous thrombosis, systemic embolization; TREATMENT for venous thrombosis and/or pulmonary embolus.HIGH RISK: Target INR is 2.5-3.5 for patients with mechanical heart valves.POCT-GLUCOSE [id number] 22:10:00 Test Item Value Reference Range Interpretation Comments POC-GLUCOSE METER 85 mg/dL 70-110 : [facility] (test code = [facility], 1538) [address]: Automation Engineering Technician/Techni won ID = [id number] for MESERET DE SOUZA AUBREY POCT-GLUCOSE [id number] 16:43:00 Test Item Value Reference Range Interpretation Comments POC-GLUCOSE METER 88 mg/dL 70-110 : [facility] T [facility] 67[facility] (test code = [facility], 1538) [address]: Automation Engineering Technician/Techni won ID = [id number] for IVONE ZHAO POCT-GLUCOSE [id number] 12:16:00 Test Item Value Reference Range Interpretation Comments POC-GLUCOSE METER 94 mg/dL 70-110 : TESTED A T [facility] 6720 ([facility]) (test code = [facility], 1538) [address]: Automation Engineering Technician/Techni won ID = [id number] for IVONE ZHAO RAD, CHEST, 1 VIEW, NON [id number] 08:20:00Reason for exam:- >intubatedShould this be performed at the bedside?->Yes [facility] : 1975 Sex: MFINAL REPORT [...] Cantu Verified Date/Time: 02/02/2021 08:20:25 Reading Location: [facility] Radiology Reading Room XR chest 1 view portable / [id number] 08:20:00Interface, External Ris In - 02/02/2021 8:22 [...] Cantu Verified Date/Time: 02/02/2021 08:20:25 Reading Location: [facility] / [id number] 08:20:00Interface, External Ris In - 02/02/2021 8:22 [...] Cantu Verified Date/Time: 02/02/2021 08:20:25 Reading Location: [facility] Radiology [facility] / [id number] 08:20:00Interface, External Ris In - 02/02/2021 8:22 [...] Cantu Verified Date/Time: 02/02/2021 08:20:25 Reading Location: [facility] Radiology Reading Room [facility]-Glucose [id number] 07:38:00 Test Item Value Reference Range Interpretation Comments POC-Glucose Meter (test 83 mg/dL 70-110 : TE STED AT [facility] code = 1538) [address] [place] [address], [address]: Automation Engineering Technician/Techni won ID = [id number] for VINOD, RONAL Lab Interpretation (test Normal code = 65970-8) [facility]-Glucose [id number] 07:38:00 Test Item Value Reference Range Interpretation Comments POC-Glucose Meter (test 83 mg/dL 70-110 : TE STED AT [facility] code = 1538) [address] [place] [address], [address]: Automation Engineering Technician/Techni won ID = [id number] for VINOD, RONAL Lab Interpretation (test Normal code = 77639-5) [facility]-Glucose [id number] 07:38:00 Test Item Value Reference Range Interpretation Comments POC-Glucose Meter (test 83 mg/dL 70-110 : TE STED AT [facility] code = 1538) [address] [place] [address], [address]: Automation Engineering Technician/Techni won ID = [id number] for VINOD, RONAL Lab Interpretation (test Normal code = 72632-2) [facility]-GLUCOSE [id number] 07:38:00 Test Item Value Reference Range Interpretation Comments POC-GLUCOSE METER 83 mg/dL 70-110 : TESTED A T [facility] 6720 (BEAKER) (test code = NORM [facility], 1538) [address]: Automation Engineering Technician/Techni won ID = [id number] for RONAL BROCK Calcium, [id number] 06:32:00 Test Item Value Reference Range Interpretation Comments Calcium, Ion (test code = 1993-08) 1.09 mmol/L 1.12-1.27 L pH, Blood (test code = 46164-8) 7.42 Lab Interpretation (test code = Abnormal 15461-1) [facility] [id number] 06:32:00 Test Item Value Reference Range Interpretation Comments Calcium, Ion (test code = 1993-08) 1.09 mmol/L 1.12-1.27 L pH, Blood (test code = 19317-2) 7.42 Lab Interpretation (test code = Abnormal 93762-4) [facility], [id number] 06:32:00 Test Item Value Reference Range Interpretation Comments Calcium, Ion (test code = 1993-08) 1.09 mmol/L 1.12-1.27 L pH, Blood (test code = 56670-3) 7.42 Lab Interpretation (test code = Abnormal 40456-7) [facility], [id number] 06:32:00 Test Item Value Reference Range Interpretation Comments CALCIUM IONIZED (BEAKER) (test 1.09 mmol/L 1.12-1.27 L code = 698) PH, BLOOD (BEAKER) (test code = 7.42 1810) CBC with platelet count + automated [id number] 04:38:00 Test Item Value Reference Range Interpretation Comments WBC (test code = 6690-2) 8.8 See_Comment [A utomated message] The system [employer] generated this result transmitted ref erence range: 3.5 - 10 .5 K/L. The refe rence range was not u sed to interpret this result as normal/abnor mal. RBC (test code = 789-8) 2.72 See_Comment L [Au tomated message] The system [employer] generated this result transmitted ref erence range: 4.63 - 6 .08 M/L. The refe rence range was not u sed to interpret this result as normal/abnor mal. MCHC (test code = 786-4) 32.2 See_Comment L [A utomated message] The system [employer] generated this result transmitted ref erence range: [...] See_Comment [Aut omated message] 777-3) The system [employer] generated this result transmitted ref erence range: 150 - 45 0 K/CU MM. The referen ce range was not u sed to interpret this result as normal/abnor mal. MPV (test code = 9.9 fL 9.4-12.4 50325-2) nRBC (test code = 413) 0 See_Comment [Aut omated message] The system [employer] generated this result transmitted ref erence range: [...] H [Aut omated message] 670) The system [employer] generated this result transmitted ref erence range: 1.78 - 5 .38 K/L. The refe rence range was not u sed to interpret this result as normal/abnor mal. # Lymphs (test code = 0.63 See_Comment L [Auto mated message] 414) The system [employer] generated this result transmitted ref erence range: 1.32 - 3 .57 K/L. The refe rence range was not u sed to interpret this result as normal/abnor mal. # Monos (test code = 0.76 See_Comment [Autom ated message] 415) The system [employer] generated this result transmitted ref erence range: 0.30 - 0 .82 K/L. The refe rence range was not u sed to interpret this result as normal/abnor mal. # Eos (test code = 416) 0.44 See_Comment [Au tomated message] The system [employer] generated this result transmitted ref erence range: 0.04 - 0 .54 K/L. The refe rence range was not u sed to interpret this result as normal/abnor mal. # Baso (test code = 417) 0.07 See_Comment [A utomated message] The system [employer] generated this result transmitted ref erence range: 0.01 - 0 .08 K/L. The refe rence range was not u sed to interpret this result as normal/abnor mal. Immature 1 % 0-1 Granulocytes-Relative (test code = 2801) Lab Interpretation (test Abnormal code = 75081-5) [facility] with platelet count + automated [id number] 04:38:00 Test Item Value Reference Range Interpretation Comments WBC (test code = 6690-2) 8.8 See_Comment [A utomated message] The system [employer] generated this result transmitted ref erence range: 3.5 - 10 .5 K/L. The refe rence range was not u sed to interpret this result as normal/abnor mal. RBC (test code = 789-8) 2.72 See_Comment L [Au tomated message] The system [employer] generated this result transmitted ref erence range: 4.63 - 6 .08 M/L. The refe rence range was not u sed to interpret this result as normal/abnor mal. MCHC (test code = 786-4) 32.2 See_Comment L [A utomated message] The system [employer] generated this result transmitted ref erence range: [...] See_Comment [Aut omated message] 777-3) The system [employer] generated this result transmitted ref erence range: 150 - 45 0 K/CU MM. The referen ce range was not u sed to interpret this result as normal/abnor mal. MPV (test code = 9.9 fL 9.4-12.4 32103-6) nRBC (test code = 413) 0 See_Comment [Aut omated message] The system [employer] generated this result transmitted ref erence range: [...] H [Aut omated message] 670) The system [employer] generated this result transmitted ref erence range: 1.78 - 5 .38 K/L. The refe rence range was not u sed to interpret this result as normal/abnor mal. # Lymphs (test code = 0.63 See_Comment L [Auto mated message] 414) The system [employer] generated this result transmitted ref erence range: 1.32 - 3 .57 K/L. The refe rence range was not u sed to interpret this result as normal/abnor mal. # Monos (test code = 0.76 See_Comment [Autom ated message] 415) The system [employer] generated this result transmitted ref erence range: 0.30 - 0 .82 K/L. The refe rence range was not u sed to interpret this result as normal/abnor mal. # Eos (test code = 416) 0.44 See_Comment [Au tomated message] The system [employer] generated this result transmitted ref erence range: 0.04 - 0 .54 K/L. The refe rence range was not u sed to interpret this result as normal/abnor mal. # Baso (test code = 417) 0.07 See_Comment [A utomated message] The system [employer] generated this result transmitted ref erence range: 0.01 - 0 .08 K/L. The refe rence range was not u sed to interpret this result as normal/abnor mal. Immature 1 % 0-1 Granulocytes-Relative (test code = 2801) Lab Interpretation (test Abnormal code = 86660-7) [facility] with platelet count + automated [id number] 04:38:00 Test Item Value Reference Range Interpretation Comments WBC (test code = 6690-2) 8.8 See_Comment [A utomated message] The system [employer] generated this result transmitted ref erence range: 3.5 - 10 .5 K/L. The refe rence range was not u sed to interpret this result as normal/abnor mal. RBC (test code = 789-8) 2.72 See_Comment L [Au tomated message] The system [employer] generated this result transmitted ref erence range: 4.63 - 6 .08 M/L. The refe rence range was not u sed to interpret this result as normal/abnor mal. MCHC (test code = 786-4) 32.2 See_Comment L [A utomated message] The system [employer] generated this result transmitted ref erence range: [...] code = 233 See_Comment [Aut omated message] 207-3) The system [employer] generated this result transmitted ref erence range: 150 - 45 0 K/CU MM. The referen ce range was not u sed to interpret this result as normal/abnor mal. MPV (test code = 9.9 fL 9.4-12.4 38302-4) nRBC (test code = 413) 0 See_Comment [Aut omated message] The system [employer] generated this result transmitted ref erence range: [...] H [Aut omated message] 670) The system [employer] generated this result transmitted ref erence range: 1.78 - 5 .38 K/L. The refe rence range was not u sed to interpret this result as normal/abnor mal. # Lymphs (test code = 0.63 See_Comment L [Auto mated message] 414) The system [employer] generated this result transmitted ref erence range: 1.32 - 3 .57 K/L. The refe rence range was not u sed to interpret this result as normal/abnor mal. # Monos (test code = 0.76 See_Comment [Autom ated message] 415) The system [employer] generated this result transmitted ref erence range: 0.30 - 0 .82 K/L. The refe rence range was not u sed to interpret this result as normal/abnor mal. # Eos (test code = 416) 0.44 See_Comment [Au tomated message] The system [employer] generated this result transmitted ref erence range: 0.04 - 0 .54 K/L. The refe rence range was not u sed to interpret this result as normal/abnor mal. # Baso (test code = 417) 0.07 See_Comment [A utomated message] The system [employer] generated this result transmitted ref erence range: 0.01 - 0 .08 K/L. The refe rence range was not u sed to interpret this result as normal/abnor mal. Immature 1 % 0-1 Granulocytes-Relative (test code = 2801) Lab Interpretation (test Abnormal code = 34975-0) [facility] W/PLT COUNT & AUTO [id number] 04:38:00 Test Item Value Reference Range Interpretation [...] (BEAKER) (test code = 2801) Basic Metabolic [id number] 04:28:00 Test Item Value Reference Range Interpretation Comments Sodium (test code = 138 meq/L 156-551 8920-2) Potassium (test code = 4.4 meq/L 3.5-5.1 2823-3) Chloride (test code = 104 meq/L 98-107 2075-0) CO2 (test code = 24 meq/L -2027-) BUN (test code = 40 mg/dL 7-21 H 3094-0) Creatinine (test code 4.27 mg/dL 0.57-1.25 H = 2160-0) Glucose (test code = 94 mg/dL 70-105 2345-7) Calcium (test code = 8.3 mg/dL 8.4-10.2 L 00205-6) EGFR (test code = 19 mL/min/1[place] [address]-7) NOT ACCURATE CREATININE CLEARANCE IN PREDICTING GLOMERULAR FILTRATION RATE . ESTIMATED GFR I S NOT APPLICABLE FOR DIALYSIS PATIENTS. CARLEY (test code = CARLEY) Automation Engineering Technician ID - VALDEZ M Lab Interpretation Abnormal (test code = 44798-4) [facility] [id number] 04:28:00 Test Item Value Reference Range Interpretation Comments Sodium (test code = 138 meq/L 818-026 0441-2) Potassium (test code = 4.4 meq/L 3.5-5.1 2823-3) Chloride (test code = 104 meq/L 98-107 2075-0) CO2 (test code = 24 meq/L -9) BUN (test code = 40 mg/dL 7-21 H 3094-0) Creatinine (test code 4.27 mg/dL 0.57-1.25 H = 2160-0) Glucose (test code = 94 mg/dL 70-105 2345-7) Calcium (test code = 8.3 mg/dL 8.4-10.2 L 51635-2) EGFR (test code = 19 mL/min/1[place] [address]-9) NOT ACCURATE CREATININE CLEARANCE IN PREDICTING GLOMERULAR FILTRATION RATE . ESTIMATED GFR I S NOT APPLICABLE FOR DIALYSIS PATIENTS. CARLEY (test code = CARLEY) Automation Engineering Technician ID - VALDEZ M Lab Interpretation Abnormal (test code = 26362-7) [facility] Metabolic [id number] 04:28:00 Test Item Value Reference Range Interpretation Comments Sodium (test code = 138 meq/L 454-035 4195-2) Potassium (test code = 4.4 meq/L 3.5-5.1 2823-3) Chloride (test code = 104 meq/L 98-107 5-0) CO2 (test code = 24 meq/L 22-29 8-9) BUN (test code = 40 mg/dL 7-21 H 3094-0) Creatinine (test code 4.27 mg/dL 0.57-1.25 H = 2160-0) Glucose (test code = 94 mg/dL 70-105 2345-7) Calcium (test code = 8.3 mg/dL 8.4-10.2 L 63117-7) EGFR (test code = 19 mL/min/1.[place] [address]-3) NOT ACCURATE CREATININE CLEARANCE IN PREDICTING GLOMERULAR FILTRATION RATE . ESTIMATED GFR I S NOT APPLICABLE FOR DIALYSIS PATIENTS. CARLEY (test code = CARLEY) Automation Engineering Technician ID - VALDEZ M Lab Interpretation Abnormal (test code = 08660-7) [facility] METABOLIC [id number] 04:28:00 Test Item Value Reference Range Interpretation [...] S NOT APPLICABLE FOR DIALYSIS PATIEN TS. Automation Engineering Technician [facility]:14[facility]00 Test Item Value Reference Range Interpretation Comments Magnesium (test code = 2.0 mg/dL 1.6-2.6 09593-8) CARLEY (test code = CARLEY) Automation Engineering Technician ID - [facility] Lab Interpretation (test Normal code = 89067-1) [place]2021-08-26 04:14:00 Test Item Value Reference Range Interpretation Comments Phosphorus (test code = 4.6 mg/dL 2.3-4.7 2777-1) CARLEY (test code = CARLEY) Automation Engineering Technician ID - [facility] Lab Interpretation (test Normal code = 91210-6) [facility]00 Test Item Value Reference Range Interpretation Comments Magnesium (test code = 2.0 mg/dL 1.6-2.6 55682-5) CARLEY (test code = CARLEY) Automation Engineering Technician ID - [facility] Lab Interpretation (test Normal code = 75813-2) [place]2021-08-26 04:14:00 Test Item Value Reference Range Interpretation Comments Phosphorus (test code = 4.6 mg/dL 2.3-4.7 2777-1) CARLEY (test code = CARLEY) Automation Engineering Technician ID - [facility] Lab Interpretation (test Normal code = 36866-6) [facility] 04[facility]00 Test Item Value Reference Range Interpretation Comments Magnesium (test code = 2.0 mg/dL 1.6-2.6 83295-3) CARLEY (test code = CARLEY) Automation Engineering Technician ID - [facility] Lab Interpretation (test Normal code = 70716-0) [place]2021-08-26 04:14:00 Test Item Value Reference Range Interpretation Comments Phosphorus (test code = 4.6 mg/dL 2.3-4.7 2777-1) CARLEY (test code = CARLEY) Automation Engineering Technician ID Doretha KELLOGG M Lab Interpretation (test Normal code = 86221-7) [facility] 04:14:00 Test Item Value Reference Range Interpretation Comments MAGNESIUM (BEAKER) (test code = 2.0 mg/dL 1.6-2.6 627) Automation Engineering Technician ID - VALDEZ RPKFYSZEOLB2806-26-02 04:14:00 Test Item Value Reference Range Interpretation Comments PHOSPHORUS (BEAKER) (test code = 4.6 mg/dL 2.3-4.7 604) Automation Engineering Technician ID - [facility], ekmjyr1743-33-29 04:12:00 Test Item Value Reference Range Interpretation Comments PTH (test code = 2731-8) 237.8 pg/mL 8.5-72.5 H CARLEY (test code = CARLEY) Automation Engineering Technician SHELBI KELLOGG Lab Interpretation (test Abnormal code = 29128-3) [facility], [id number] 04:12:00 Test Item Value Reference Range Interpretation Comments PTH (test code = 2731-8) 237.8 pg/mL 8.5-72.5 H CARLEY (test code = CARLEY) Automation Engineering Technician SHELBI KELLOGG Lab Interpretation (test Abnormal code = 17693-5) [facility], wxidai6056-72-97 04:12:00 Test Item Value Reference Range Interpretation Comments PTH (test code = 2731-8) 237.8 pg/mL 8.5-72.5 H CARLEY (test code = CARLEY) Automation Engineering Technician SHELBI KELLOGG Lab Interpretation (test Abnormal code = 98711-6) [facility], [id number] 04:12:00 Test Item Value Reference Range Interpretation Comments PARATHYROID HORMONE INTACT 237.8 pg/mL 8.5-72.5 H (BEAKER) (test code = 577) Automation Engineering Technician SHELBI Chen Prothrombin time/INR while on adjfxumc9356-56-64 03:58:00 Test Item Value Reference Interpretation Comments Range Protime (test code = 19.8 See_Comment H [Autom ated 5902-2) message] The system which generated this result transmitted reference range : 11.9 - 14.2 seconds. The reference range was not used to interpret this result as normal/abnormal . INR (test code = 1.71 See_Comment [Automated to be1-6) message] The system which generated this result [...] valves. Lab Interpretation Abnormal (test code = 53733-1) [facility]/INR while on warfarin 2021-02-02 03:58:00 Test Item Value Reference Interpretation Comments Range Protime (test code = 19.8 See_Comment H [Autom ated 5902-2) message] The system which generated this result transmitted reference range : 11.9 - 14.2 seconds. The reference range was not used to interpret this result as normal/abnormal . INR (test code = 1.71 See_Comment [Automated to be1-6) message] The system which generated this result [...] valves. Lab Interpretation Abnormal (test code = 82489-4) [facility] Pro[facility]/INR while on warfarin 2021-02-02 03:58:00 [...] valves. Lab Interpretation Abnormal (test code = 82708-4) [facility]PROTHROMBIN TIME/[id number] 03:58:00 Test Item Value Reference Range Interpretation Comments PROTIME (BEAKER) 19.8 seconds 11.9-14.2 H (test code = 759) INR (BEAKER) (test 1.71 See_Comment [Automat ed message] code = 370) The system [employer] generated this result transmitted ref erence range: <=5.90. The reference range was not used to int erpret this result as normal/abnormal . RECOMMENDED COUMADIN/WARFARIN INR THERAPY RANGESSTANDARD DOSE: 2.0 - 3.0 Includes: PROPHYLAXIS forvenous thrombosis, systemic embolization; TREATMENT for venous thrombosis and/or pulmonary embolus.HIGH RISK: Target INR is 2.5-3.5 for patients with mechanical heart valves.POCT-GLUCOSE [id number] 03:56:00 Test Item Value Reference Range Interpretation Comments POC-GLUCOSE METER 94 mg/dL 70-110 : TESTED A T [facility] 6720 (iPowow) (test code = [employer] [facility], 153) 82414: Automation Engineering Technician/Techni won ID = [id number] for Comp uesto, Ana Mariazacaseyo POCT-GLUCOSE [id number] 00:10:00 Test Item Value Reference Range Interpretation Comments POC-GLUCOSE METER 83 mg/dL 70-110 : TESTED A T [facility] 6720 (iPowow) (test code = [employer] [facility], 153) 76561: Automation Engineering Technician/Techni won ID = [id number] for Brody Ovalle POCT-GLUCOSE [id number] 15:37:00 Test Item Value Reference Range Interpretation Comments POC-GLUCOSE METER 73 mg/dL 70-110 : TESTED A T [facility] 6720 (iPowow) (test code = [employer] [facility], 1538) 84382: Automation Engineering Technician/Techni won ID = [id number] for Atwo od (V), Anurag POCT-GLUCOSE [id number] 14:59:00 Test Item Value Reference Range Interpretation Comments POC-GLUCOSE METER 68 mg/dL 70-110 L : TESTED A T [facility] 6720 (BEAKER) (test code = NORM [employer] [facility], 1538) 22787: Automation Engineering Technician/Techni won ID = [id number] for Atwo od (V), Anurag CT, CHEST, WITHOUT [id number] 14:15:00ICU attending Dr. SteveUnlisted Reason for Exam - Click Yes and Enter Reason Below->YesUnlisted Reason for Exam->Evaluate [facility] effusion [facility] : 1975 Sex: MFINAL REPORT [...] MDReport Verified Date/Time: 02/01/2021 14:15:18 Reading Location: [facility] C013Y CT Body Reading Room CT chest without IV kqidtjuc8994-14-97 14:15:00Interface, External Ris In - 02/01/2021 2:17 [...] MDReport Verified Date/Time: 02/01/2021 14:15:18 Reading Location: [facility] C013Y CT [facility] 2021-02-01 14:15:00Interface, [...] MDReport Verified Date/Time: 02/01/2021 14:15:18 Reading Location: [facility] C013Y CT Body [facility] 2021-02-01 14:15:00Interface, [...] MDReport Verified Date/Time: 02/01/2021 14:15:18 Reading Location: [facility] B1 C013Y CT Body [facility] [id number] 11:48:00 Test Item Value Reference Range Interpretation Comments POC-GLUCOSE METER 64 mg/dL 70-110 L : TESTED A T [facility] 6720 (BEAKER) (test code = N[facility] [place], 1538) 42985: Automation Engineering Technician/Techni won ID = [id number] for Edwin gardner (contract)Terence RAD, CHEST, 1 VIEW, NON [id number] 07:53:00Reason for exam:- >intubatedShould this be performed at the bedside?->Yes [facility] : 1975 Sex: MFINAL REPORT [...] Re Cantu Verified Date/Time: 02/01/2021 07:53:28 Reading Location:[facility] Radiology Reading Room CALCIUM, [id number] 05:25:00 Test Item Value Reference Range Interpretation Comments CALCIUM IONIZED (BEAKER) (test 1.09 mmol/L 1.12-1.27 L code = 698) PH, BLOOD (BEAKER) (test code = 7.44 1810) BASIC METABOLIC [id number] 05:19:00 Test Item Value Reference Range Interpretation [...] S NOT APPLICABLE FOR DIALYSIS PATIEN TS. Automation Engineering Technician ID - PIRAFY ZHZZHNQQBD5511-47-58 05:13:00 Test Item Value Reference Range Interpretation Comments MAGNESIUM (BEAKER) (test code = 2.0 mg/dL 1.6-2.6 627) Automation Engineering Technician ID - LINA XUHDDMLNLWD3392-74-72 05:13:00 Test Item Value Reference Range Interpretation Comments PHOSPHORUS (BEAKER) (test code = 4.9 mg/dL 2.3-4.7 H 604) Automation Engineering Technician ID - LINA LPROTHROMBIN TIME/[id number] 04:50:00 Test Item Value Reference Range Interpretation Comments PROTIME (BEAKER) 17.7 seconds 11.9-14.2 H (test code = 759) INR (BEAKER) (test 1.48 See_Comment [Automat ed message] code = 370) The system [employer] generated this result transmitted ref erence range: [...] PERCENT (BEAKER) (test code = 2801) POCT-GLUCOSE [id number] 01:16:00 Test Item Value Reference Range Interpretation Comments POC-GLUCOSE METER 79 mg/dL 70-110 : TESTED A T [facility] 6720 (BEAKER) (test code = [facility], 1538) 35698: Automation Engineering Technician/Techni won ID = [id number] for MUSE BE, CRESCENCIO POCT-GLUCOSE [id number] 22:03:00 Test Item Value Reference Range Interpretation Comments POC-GLUCOSE METER 83 mg/dL 70-110 : TESTED A T [facility] 6720 (BEAKER) (test code = [facility] [employer] [facility], 1538) 49945: Automation Engineering Technician/Techni won ID = [id number] for MUSE BE, CRESCENCIO Hemoglobin and znvnrtefag5888-06-29 17:25:00 Test Item Value Reference Range Interpretation [...] = 4544-3) CARLEY (test code = CARLEY) Automation Engineering Technician ID - [id number] Lab Interpretation Abnormal (test code = 17072-3) [facility] and rawlnbakod4663-26-75 17:25:00 Test Item Value Reference Range Interpretation [...] = 4544-3) CARLEY (test code = CARLEY) Automation Engineering Technician ID - [id number] Lab Interpretation Abnormal (test code = 70770-4) [facility]Hemoglobin and eemsoxpaji6403-03-00 17:25:00 Test Item Value Reference Range Interpretation [...] = 4544-3) CARLEY (test code = CARLEY) Automation Engineering Technician ID - [id number] Lab Interpretation Abnormal (test code = 60021-4) [facility]HEMOGLOBIN AND [id number] 17:25:00 Test Item Value Reference Range Interpretation Comments HEMOGLOBIN (BEAKER) (test code = 7.5 GM/DL 13.7-17.5 L 410) HEMATOCRIT (BEAKER) (test code = 23.1 % 40.1-51.0 L 411) Automation Engineering Technician ID - [id number]-GLUCOSE [id number] 11:36:00 Test Item Value Reference Range Interpretation Comments POC-GLUCOSE METER 105 mg/dL 70-110 : TESTED A T [facility] 6720 (BEAKER) (test code = [facility] [employer] [facility], 1538) 85202: Automation Engineering Technician/Techni won ID = [id number] for RONAL PEREZ POCT-GLUCOSE [id number] 07:26:00 Test Item Value Reference Range Interpretation Comments POC-GLUCOSE METER 69 mg/dL 70-110 L : TESTED A T [facility] 6720 (BEAKER) (test code = [employer] [facility], 1538) 65696: Automation Engineering Technician/Techni won ID = [id number] for RONAL BROCK BASIC METABOLIC [id number] 05:40:00 Test Item Value Reference Range Interpretation [...] S NOT APPLICABLE FOR DIALYSIS PATIEN TS. Automation Engineering Technician ID - LINA YKCRWVSOZK8366-51-59 05:24:00 Test Item Value Reference Range Interpretation Comments MAGNESIUM (BEAKER) (test code = 2.0 mg/dL 1.6-2.6 627) Automation Engineering Technician ID - LINA RPWJBGWLTUN7579-62-62 05:24:00 Test Item Value Reference Range Interpretation Comments PHOSPHORUS (BEAKER) (test code = 4.1 mg/dL 2.3-4.7 604) Automation Engineering Technician ID - LINA LCBC W/PLT COUNT & AUTO [id number] 05:04:00 Test Item Value Reference Range Interpretation [...] (BEAKER) (test code = 2801) Lactic Acid, [id number] 04:53:00 Test Item Value Reference Range Interpretation Comments Lactate, Art (test code = 0.4 mmol/L 0.5-2.2 L 2874) CRALEY (test code = CARLEY) Automation Engineering Technician ID - PIAYA L Lab Interpretation (test Abnormal code = 84602-5) [facility], [id number] 04:53:00 Test Item Value Reference Range Interpretation Comments Lactate, Art (test code = 0.4 mmol/L 0.5-2.2 L 2874) CARLEY (test code = CARLEY) Automation Engineering Technician ID - PIAYA L Lab Interpretation (test Abnormal code = 06448-6) [facility], Hdxedbrj7762-48-26 04:53:00 Test Item Value Reference Range Interpretation Comments Lactate, Art (test code = 0.4 mmol/L 0.5-2.2 L 2874) CARLEY (test code = CARLEY) Automation Engineering Technician ID - PIAYA L Lab Interpretation (test Abnormal code = 49878-5) [facility]LACTIC ACID, [id number] 04:53:00 Test Item Value Reference Range Interpretation Comments LACTATE BLOOD ARTERIAL (2) 0.4 mmol/L 0.5-2.2 L (BEAKER) (test code = 2874) Automation Engineering Technician ID - LINA MartinezQrMPG0269-97-17 04:49:00 Test Item Value Reference Range Interpretation Comments PTT (test code = 40.1 See_Comment H [Automated message] 86697-5) The system [employer] generated this result transmitted ref erence range: 22.5 - 3 6.0 seconds. The reference range was not used to int erpret this result as normal/abnormal . Lab Interpretation (test Abnormal code = 72553-4) [facility]PT/[id number] 04:49:00 Test Item Value Reference Interpretation Comments Range Protime (test code = 17.9 See_Comment H [Autom ated 5902-2) message] The system which generated this result transmitted reference range : 11.9 - 14.2 seconds. The reference range was not used to interpret this result as normal/abnormal . INR (test code = 1.50 See_Comment [Automated 3570-6) message] The system which generated this result transmitted reference range : <=5.90. The reference range was not used to interpret this result as normal/abnormal . PTT (test code = 40.1 See_Comment H [Automated 25286-6) message] The system which generated this result [...] valves. Lab Interpretation Abnormal (test code = 73584-2) [facility]aPTT20[facility] 04:49:00 Test Item Value Reference Range Interpretation Comments PTT (test code = 40.1 See_Comment H [Automated message] 36284-5) The system [employer] generated this result transmitted ref erence range: 22.5 - 3 6.0 seconds. The reference range was not used to int erpret this result as normal/abnormal . Lab Interpretation (test Abnormal code = 43914-2) [place] campusPT/[id number] 04:49:00 Test Item Value Reference Interpretation Comments Range Protime (test code = 17.9 See_Comment H [Autom ated 5902-2) message] The system which generated this result transmitted reference range : 11.9 - 14.2 seconds. The reference range was not used to interpret this result as normal/abnormal . INR (test code = 1.50 See_Comment [Automated 6671-6) message] The system which generated this result transmitted reference range : <=5.90. The reference range was not used to interpret this result as normal/abnormal . PTT (test code = 40.1 See_Comment H [Automated 01901-6) message] The system which generated this result [...] valves. Lab Interpretation Abnormal (test code = 08513-6) [facility]aPTT[facility] 04:49:00 Test Item Value Reference Range Interpretation Comments PTT (test code = 40.1 See_Comment H [Automated message] 38669-2) The system [employer] generated this result transmitted ref erence range: 22.5 - 3 6.0 seconds. The reference range was not used to int erpret this result as normal/abnormal . Lab Interpretation (test Abnormal code = 45450-4) [facility]PT/[id number] 04:49:00 Test Item Value Reference Interpretation Comments Range Protime (test code = 17.9 See_Comment H [Autom ated 5902-2) message] The system which generated this result transmitted reference range : 11.9 - 14.2 seconds. The reference range was not used to interpret this result as normal/abnormal . INR (test code = 1.50 See_Comment [Automated 7621-6) message] The system which generated this result transmitted reference range : <=5.90. The reference range was not used to interpret this result as normal/abnormal . PTT (test code = 40.1 See_Comment H [Automated 09620-5) message] The system which generated this result transmitted reference range : 22.5 - 36.0 seconds. The reference range was not used to interpret this result as normal/abnormal . CARLEY (test code = RECOMMENDED ACRLEY) COUMADIN/WARFARIN INR THERAPY RANGESSTANDARD DOSE: 2.0 - 3.0 Includes: PROPHYLAXIS for venous thrombosis, systemic embolization; TREATMENT for venous thrombosis and/or pulmonary embolus.HIGH RISK: Target INR is 2.5-3.5 for patients with mechanical heart valves. Lab Interpretation Abnormal (test code = 22474-1) [facility]APTT[facility] 04:49:00 Test Item Value Reference Range Interpretation Comments PARTIAL THROMBOPLASTIN TIME 40.1 seconds 22.5-36.0 H (BEAKER) (test code = 760) PT/[id number] 04:49:00 Test Item Value Reference Range Interpretation [...] 2.5-3.5 for patients with mechanical heart valves.PROTHROMBIN TIME/[id number] 04:48:00 Test Item Value Reference Range Interpretation [...] for patients with mechanical heart valves.Blood gas, qhprsdaz6936-65-43 04:44:00 Test Item Value Reference Range Interpretation Comments pH, Arterial (test code 7.49 7.35-7.45 H = 2744-1) pCO2, Arterial (test 37 See_Comment [Autom ated message] code = 2019-01) The system [facility] generated this result transmit ari reference range : 35 - 45 mm Hg. The reference range was not used to interpret this result as normal/abnormal . pO2, Arterial (test 130 See_Comment H [Automa ari message] code = 2703-7) The system [facility] generated this result transmit ari reference range [...] 35 Lab Interpretation Abnormal (test code = 68160-4) [facility], [id number] 04:44:00 Test Item Value Reference Range Interpretation Comments pH, Arterial (test code 7.49 7.35-7.45 H = 2744-1) pCO2, Arterial (test 37 See_Comment [Autom ated message] code = 2019-01) The system [facility] generated this result transmit ari reference range : 35 - 45 mm Hg. The reference range was not used to interpret this result as normal/abnormal . pO2, Arterial (test 130 See_Comment H [Automa ari message] code = 2703-7) The system [facility] generated this result transmit ari reference range [...] 35 Lab Interpretation Abnormal (test code = 68017-5) [facility]Blood gas, [id number] 04:44:00 Test Item Value Reference Range Interpretation Comments pH, Arterial (test code 7.49 7.35-7.45 H = 2744-1) pCO2, Arterial (test 37 See_Comment [Autom ated message] code = 2019-8) The system [employer] generated this result transmit ari reference range : 35 - 45 mm Hg. The reference range was not used to interpret this result as normal/abnormal . pO2, Arterial (test 130 See_Comment H [Automa ari message] code = 2703-7) The system [employer] generated this result transmit ari reference range [...] 35 Lab Interpretation Abnormal (test code = 99446-0) [facility] GAS, [id number] 04:44:00 Test Item Value Reference Range Interpretation [...] (BEAKER) (test code = 1819) 35.0 CALCIUM, [id number] 04:44:00 Test Item Value Reference Range Interpretation Comments CALCIUM IONIZED (BEAKER) (test 1.11 mmol/L 1.12-1.27 L code = 698) PH, BLOOD (BEAKER) (test code = 7.49 1810) RAD, CHEST, 1 VIEW, NON [id number] 04:44:00Reason for exam:- >intubatedShould this be performed at the bedside?->Yes [facility] : 1975 Sex: MFINAL REPORT [...] MDReport Verified Date/Time: 01/31/2021 04:44:53 Prepare Leuko-Red [id number] 23:54:00 Test Item Value Reference Range Interpretation Comments CROSSMATCH (test code = 2264) COMPATIBLE Unit ABO (test code = O Neg 4985640) UNIT NUMBER (test code = [id number] 934-0) Status (test code = 7681610) TX_TIMEINCHART Blood Bank Product (test code RED BLOOD CELLS = 2263) PRODUCT CODE (test code = [id number] 933-2) [facility] [id number] 23:54:00 Test Item Value Reference Range Interpretation Comments CROSSMATCH (test code = 2264) COMPATIBLE Unit ABO (test code = O Neg 6806740) UNIT NUMBER (test code = [id number] 934-0) Status (test code = 6486132) TX_TIMEINCHART Blood Bank Product (test code RED BLOOD CELLS = 2263) PRODUCT CODE (test code = [id number] 933-2) [facility]Prepare Leuko-Red [id number] 23:54:00 Test Item Value Reference Range Interpretation Comments CROSSMATCH (test code = 2264) COMPATIBLE Unit ABO (test code = O Neg 0243801) UNIT NUMBER (test code = [id number] 934-0) Status (test code = 5620723) TX_TIMEINCHART Blood Bank Product (test code RED BLOOD CELLS = 2263) PRODUCT CODE (test code = [id number] 933-2) [facility] campusHGB/HCT (H&H)-Stat [id number] 21:11:00 Test Item Value Reference Range Interpretation Comments Hemoglobin (test code = 7.8 See_Comment L [Au tomated message] 786-4) The system [employer] generated this result transmitted ref erence range: 13.0 - 1 6.8 GM/DL. The refe rence range was not u sed to interpret this result as normal/abnor mal. Hematocrit (test code = 23.0 % 40-50 L 4544-3) Lab Interpretation (test Abnormal code = 17216-6) [facility]HGB/HCT (H&H)-Stat [id number] 21:11:00 Test Item Value Reference Range Interpretation Comments Hemoglobin (test code = 7.8 See_Comment L [Au tomated message] 786-4) The system [employer] generated this result transmitted ref erence range: 13.0 - 1 6.8 GM/DL. The refe rence range was not u sed to interpret this result as normal/abnor mal. Hematocrit (test code = 23.0 % 40-50 L 4544-3) Lab Interpretation (test Abnormal code = 23316-1) [facility]HGB/HCT (H&H)-Stat [id number] 21:11:00 Test Item Value Reference Range Interpretation Comments Hemoglobin (test code = 7.8 See_Comment L [Au tomated message] 786-4) The system [employer] generated this result transmitted ref erence range: 13.0 - 1 6.8 GM/DL. The refe rence range was not u sed to interpret this result as normal/abnor mal. Hematocrit (test code = 23.0 % 40-50 L 4544-3) Lab Interpretation (test Abnormal code = 08849-8) [place] campusBLOOD GAS, [id number] 21:11:00 Test Item Value Reference Range Interpretation [...] = 1819) 35.0 HGB/HCT (H&H) - STAT [id number] 21:11:00 Test Item Value Reference Range Interpretation Comments HEMOGLOBIN (BEAKER) (test code = 7.8 GM/DL 13.0-16.8 L 410) HEMATOCRIT (BEAKER) (test code = 23.0 % 40.0-50.0 L 411) Glucose-Stat [id number] 21:10:00 Test Item Value Reference Range Interpretation Comments Glucose (test code = 2345-7) 106 mg/dL 70-110 Lab Interpretation (test code = Normal 18853-4) [facility] [id number] 21:10:00 Test Item Value Reference Range Interpretation Comments Sodium (test code = 2951-2) 135 meq/L 136-145 L Lab Interpretation (test code = Abnormal 37525-1) [facility] campusPotassium-Stat [id number] 21:10:00 Test Item Value Reference Range Interpretation Comments Potassium (test code = 2823-3) 3.8 meq/L 3.6-5.5 Lab Interpretation (test code = Normal 87083-1) [facility]Glucose-Stat [id number] 21:10:00 Test Item Value Reference Range Interpretation Comments Glucose (test code = 2345-7) 106 mg/dL 70-110 Lab Interpretation (test code = Normal 76491-8) [facility] Na-Stat [id number] 21:10:00 Test Item Value Reference Range Interpretation Comments Sodium (test code = 2951-2) 135 meq/L 136-145 L Lab Interpretation (test code = Abnormal 15001-8) [facility]assium[facility]Stat [id number] 21:10:00 Test Item Value Reference Range Interpretation Comments Potassium (test code = 2823-3) 3.8 meq/L 3.6-5.5 Lab Interpretation (test code = Normal 36640-0) [facility]ucose[facility] [id number] 21:10:00 Test Item Value Reference Range Interpretation Comments Glucose (test code = 2345-7) 106 mg/dL 70-110 Lab Interpretation (test code = Normal 04672-6) [facility] Na-Stat [id number] 21:10:00 Test Item Value Reference Range Interpretation Comments Sodium (test code = 2951-2) 135 meq/L 136-145 L Lab Interpretation (test code = Abnormal 29552-9) [facility] [id number] 21:10:00 Test Item Value Reference Range Interpretation Comments Potassium (test code = 2823-3) 3.8 meq/L 3.6-5.5 Lab Interpretation (test code = Normal 16309-7) [facility] [place] [facility]UCOSE-STAT [id number] 21:10:00 Test Item Value Reference Range Interpretation Comments GLUCOSE RANDOM (BEAKER) (test code 106 mg/dL 70-110 = 652) SODIUM NA-STAT [id number] 21:10:00 Test Item Value Reference Range Interpretation Comments SODIUM (BEAKER) (test code = 381) 135 meq/L 136-145 L POTASSIUM-STAT [id number] 21:10:00 Test Item Value Reference Range Interpretation Comments POTASSIUM (BEAKER) (test code = 3.8 meq/L 3.6-5.5 379) BASIC METABOLIC [id number] 19:47:00 Test Item Value Reference Range Interpretation [...] S NOT APPLICABLE FOR DIALYSIS PATIEN TS. Automation Engineering Technician ID - [id number] 19:47:00 Test Item Value Reference Range Interpretation Comments MAGNESIUM (BEAKER) (test code = 1.8 mg/dL 1.6-2.6 627) Automation Engineering Technician ID - DBPROTHROMBIN TIME/[id number] 19:36:00 Test Item Value Reference Range Interpretation Comments PROTIME (BEAKER) 19.1 seconds 11.9-14.2 H (test code = 759) INR (BEAKER) (test 1.63 See_Comment [Automat ed message] code = 370) The system [employer] generated this result transmitted ref erence range: <=5.90. The reference range was not used to int erpret this result as normal/abnormal . RECOMMENDED COUMADIN/WARFARIN INR THERAPY RANGESSTANDARD DOSE: 2.0 - 3.0 Includes: PROPHYLAXIS forvenous thrombosis, systemic embolization; TREATMENT for venous thrombosis and/or pulmonary embolus.HIGH RISK: Target INR is 2.5-3.5 for patients with mechanical heart valves.CALCIUM, [id number] 19:26:00 Test Item Value Reference Range Interpretation Comments CALCIUM IONIZED (BEAKER) (test 1.15 mmol/L 1.12-1.27 code = 698) PH, BLOOD (BEAKER) (test code = 7.50 1810) POCT-GLUCOSE [id number] 18:48:00 Test Item Value Reference Range Interpretation Comments POC-GLUCOSE METER 94 mg/dL 70-110 : TESTED A T [facility] 6720 (BEAKER) (test code = [employer] [facility], 1538) 03247: Automation Engineering Technician/Techni won ID = [id number] for Gianfranco s, Paige POCT-GLUCOSE [id number] 12:38:00 Test Item Value Reference Range Interpretation Comments POC-GLUCOSE METER 111 mg/dL 70-110 H : TESTED A T [facility] 6720 (BEAKER) (test code = [employer] [facility], 1538) 57528: Automation Engineering Technician/Techni won ID = [id number] for Da vis, Paige PROTHROMBIN TIME/[id number] 12:37:00 Test Item Value Reference Range Interpretation Comments PROTIME (BEAKER) 19.6 seconds 11.9-14.2 H (test code = 759) INR (BEAKER) (test 1.68 See_Comment [Automat ed message] code = 370) The system [employer] generated this result transmitted ref erence range: <=5.90. The reference range was not used to int erpret this result as normal/abnormal . RECOMMENDED COUMADIN/WARFARIN INR THERAPY RANGESSTANDARD DOSE: 2.0 - 3.0 Includes: PROPHYLAXIS forvenous thrombosis, systemic embolization; TREATMENT for venous thrombosis and/or pulmonary embolus.HIGH RISK: Target INR is 2.5-3.5 for patients with mechanical heart valves.POCT-GLUCOSE [id number] 06:19:00 Test Item Value Reference Range Interpretation Comments POC-GLUCOSE METER 100 mg/dL 70-110 : TESTED A T [facility] 6720 (BEAKER) (test code = NORM [employer] [facility], 1538) 35156: Automation Engineering Technician/Techni won ID = [id number] for VINOD CHAUDHARY BLOOD GAS, [id number] 05:07:00 Test Item Value Reference Range Interpretation [...] 1819) 60.0 RAD, CHEST, 1 VIEW, NON [id number] 04:36:00Reason for exam:- >intubatedShould this be performed at the bedside?->Yes [facility] : 1975 Sex: MFINAL REPORT [...] Warren Verified Date/Time: 01/30/2021 04:36:28 BASIC METABOLIC [id number] 02:59:00 Test Item Value Reference Range Interpretation [...] S NOT APPLICABLE FOR DIALYSIS PATIEN TS. Automation Engineering Technician ID - [id number] 02:45:00 Test Item Value Reference Range Interpretation Comments MAGNESIUM (BEAKER) (test code = 2.1 mg/dL 1.6-2.6 627) Automation Engineering Technician ID - [id number] 02:45:00 Test Item Value Reference Range Interpretation Comments PHOSPHORUS (BEAKER) (test code = 4.6 mg/dL 2.3-4.7 604) Automation Engineering Technician ID - [id number] 02:42:00 Test Item Value Reference Range Interpretation Comments PARTIAL THROMBOPLASTIN TIME 44.4 seconds 22.5-36.0 H (BEAKER) (test code = 760) PT/[id number] 02:42:00 Test Item Value Reference Range Interpretation Comments PROTIME (BEAKER) (test 20.9 seconds 11.9-14.2 H code = 759) INR (BEAKER) (test 1.83 See_Comment [Automat ed code = 370) message] The [employer] stem which generated this result transmitted reference [...] 2.5-3.5 for patients with mechanical heart valves.PROTHROMBIN TIME/[id number] 02:41:00 Test Item Value Reference Range Interpretation Comments PROTIME (BEAKER) 20.9 seconds 11.9-14.2 H (test code = 759) INR (BEAKER) (test 1.83 See_Comment [Automat ed message] code = 370) The system [employer] generated this result transmitted ref erence range: <=5.90. The reference range was not used to int erpret this result as normal/abnormal . RECOMMENDED COUMADIN/WARFARIN INR THERAPY RANGESSTANDARD DOSE: 2.0 - 3.0 Includes: PROPHYLAXIS forvenous thrombosis, systemic embolization; TREATMENT for venous thrombosis and/or pulmonary embolus.HIGH RISK: Target INR is 2.5-3.5 for patients with mechanical heart valves.LACTIC ACID, [id number] 02:40:00 Test Item Value Reference Range Interpretation Comments LACTATE BLOOD ARTERIAL (2) 0.6 mmol/L 0.5-2.2 (BEAKER) (test code = 2874) Automation Engineering Technician ID - DBCALCIUM, [id number] 02:34:00 Test Item Value Reference Range Interpretation Comments CALCIUM IONIZED (BEAKER) (test 1.15 mmol/L 1.12-1.27 code = 698) PH, BLOOD (BEAKER) (test code = 7.47 1810) BLOOD GAS, [id number] 02:34:00 Test Item Value Reference Range Interpretation [...] 1819) 50.0 CBC W/PLT COUNT & AUTO [id number] 02:33:00 Test Item Value Reference Range Interpretation [...] (BEAKER) (test code = 2801) Oxygen saturation, [id number] 02:32:00 Test Item Value Reference Range Interpretation Comments O2 Saturation (Measured) (test code = 66.8 % 11455-0) [facility]Oxygen saturation, [id number] 02:32:00 Test Item Value Reference Range Interpretation Comments O2 Saturation (Measured) (test code = 66.8 % 23373-0) [facility]Oxygen saturation, [id number] 02:32:00 Test Item Value Reference Range Interpretation Comments O2 Saturation (Measured) (test code = 66.8 % 36780-2) [place] campusOXYGEN SATURATION, [id number] 02:32:00 Test Item Value Reference Range Interpretation Comments O2 SATURATION (MEASURED) (BEAKER) 66.8 % (test code = 1455) CT, BRAIN, WITHOUT [id number] 02:20:00Unlisted Reason for Exam - Click Yes and Enter Reason Below->No [facility]OW [facility] : 1975 [...] Buck Warren MDReport Verified Date/Time: 01/30/2021 02:20:02 [facility], CTANGIO [id number] 02:20:00Unlisted Reason for Exam - Click Yes and Enter Reason Below->YesUnlisted Reason for Exam->r/o m ycotic anuerysmHOLLYWO[facility] : 1975 Sex: MFINAL REPORT [...] Buck Warren MDReport Verified Date/Time: 01/30/2021 02:20:02 [facility] [id number] 02:20:00Interface, External Ris In - 01/30/2021 2:23 [...] CTA head:No intracranial aneurysm. Signed: Buck [facility] Verified Date/Time: 01/30/2021 02:20:02 [facility] [id number] 02:20:00Interface, External Ris In - 01/30/2021 2:23 [...] as described. CTA head:No intracranial aneurysm. Signed: [facility] Date/Time: 01/30/2021 02:20:02 [facility] [id number] 02:20:00 Interface, External Ris In - 01/30/2021 [...] CTA head:No intracranial aneurysm. Signed: Buck [facility] Verified Date/Time: 01/30/2021 02:20:02 [facility] [id number] 02:20:00Interface, External Ris In - 01/30/2021 2:23 [...] CTA head:No intracranial aneurysm. Signed: [facility] Ver[facility] Date/Time: 01/30/2021 02:20:02 [facility] [id number] 02:20:00Interface, External Ris In - 01/30/2021 2:23 [...] CTA head:No intracranial aneurysm. Signed: [facility] Ver[facility] Date/Time: 01/30/2021 02:20:02 [facility] IV [id number] 02:20:00Interface, External Ris In - 01/30/2021 2:23 [...] described. CTA head:No intracranial aneurysm. Signed: [facility] Verified Date/Time: 01/30/2021 02:20:02 [facility] [id number] 23:30:00 Test Item Value Reference Range Interpretation Comments POC-GLUCOSE METER 107 mg/dL 70-110 : TESTED A T [facility] 6720 (BEAKER) (test code = NORM [employer] [facility], 1538) 14125: Automation Engineering Technician/Techni won ID = [id number] for VINOD CHAUDHARY CBC W/PLT COUNT & AUTO [id number] 19:35:00 Test Item Value Reference Range Interpretation [...] PERCENT (BEAKER) (test code = 2801) POCT-GLUCOSE [id number] 18:16:00 Test Item Value Reference Range Interpretation Comments POC-GLUCOSE METER 99 mg/dL 70-110 : TESTED A T [facility] 6720 (BEAKER) (test code = NORM [place], 1538) [address]: Automation Engineering Technician/Techni won ID = [id number] for RONAL BROCK PROTHROMBIN TIME/[id number] 18:16:00 Test Item Value Reference Range Interpretation Comments PROTIME (BEAKER) 21.4 seconds 11.9-14.2 H (test code = 759) INR (BEAKER) (test 1.89 See_Comment [Automat ed message] code = 370) The system [employer] generated this result transmitted ref erence range: <=5.90. The reference range was not used to int erpret this result as normal/abnormal . RECOMMENDED COUMADIN/WARFARIN INR THERAPY RANGESSTANDARD DOSE: 2.0 - 3.0 Includes: PROPHYLAXIS forvenous thrombosis, systemic embolization; TREATMENT for venous thrombosis and/or pulmonary embolus.HIGH RISK: Target INR is 2.5-3.5 for patients with mechanical heart valves.PROTHROMBIN TIME/[id number] 15:23:00 Test Item Value Reference Range Interpretation Comments PROTIME (BEAKER) 21.5 seconds 11.9-14.2 H (test code = 759) INR (BEAKER) (test 1.90 See_Comment [Automat ed message] code = 370) The system [employer] generated this result transmitted ref erence range: <=5.90. The reference range was not used to int erpret this result as normal/abnormal . RECOMMENDED COUMADIN/WARFARIN INR THERAPY RANGESSTANDARD DOSE: 2.0 - 3.0 Includes: PROPHYLAXIS forvenous thrombosis, systemic embolization; TREATMENT for venous thrombosis and/or pulmonary embolus.HIGH RISK: Target INR is 2.5-3.5 for patients with mechanical heart valves.[id number] 15:23:00 Test Item Value Reference Range Interpretation Comments PARTIAL THROMBOPLASTIN TIME 52.7 seconds 22.5-36.0 H (BEAKER) (test code = 760) [facility], [id number] 14:38:00 Test Item Value Reference Range Interpretation Comments ABO Grouping (test O Anti-A 0, Anti-B 0, A1 4+, code = 2588) B 4+, Anti D 4+ . Typing as O positive due to multiple transfusions of O positive RBC due to O ne g RBC shortage. Rh Factor (test code = NEG 2589) [facility]AB[facility] [id number] 14:38:00 Test Item Value Reference Range Interpretation Comments ABO Grouping (test O Anti-A 0, Anti-B 0, A1 4+, code = 2588) B 4+, Anti D 4+ . Typing as O positive due to multiple transfusions of O positive RBC due to O ne g RBC shortage. Rh Factor (test code = NEG 2589) [place] campusABORH, [id number] 14:38:00 Test Item Value Reference Range Interpretation Comments ABO Grouping (test O Anti-A 0, Anti-B 0, A1 4+, code = 2588) B 4+, Anti D 4+ . Typing as O positive due to multiple transfusions of O positive RBC due to O ne g RBC shortage. Rh Factor (test code = NEG 2589) [facility] [place] campusType and screen, [id number] 14:32:00 Test Item Value Reference Range Interpretation Comments Ab Scrn (test code = 890-4) NEGATIVE [facility] campusType and screen, [id number] 14:32:00 Test Item Value Reference Range Interpretation Comments Ab Scrn (test code = 890-4) NEGATIVE [facility] [place] campusType and screen, [id number] 14:32:00 Test Item Value Reference Range Interpretation Comments Ab Scrn (test code = 890-4) NEGATIVE [place] campusPOCT-GLUCOSE [id number] 14:30:00 Test Item Value Reference Range Interpretation Comments POC-GLUCOSE METER 105 mg/dL 70-110 : TESTED A T [facility] 6720 (BEAKER) (test code = [place]ACQUELINE [place], 1538) [address]: Automation Engineering Technician/Techni won ID = [id number] for RONAL PEREZ CT, BRAIN, WITHOUT [id number] 10:14:00Unlisted Reason for Exam - Click Yes and Enter Reason Below->No [facility] : 1975 Sex: MAddendum BeginsREPORT [...] Signed: Celso Fernandes Verified Date/Time: 01/29/2021 10:07:24 /[id number] 09:36:00 Test Item Value Reference Range Interpretation [...] patients with mechanical heart valves.Red blood cell [id number] 09:29:00 Test Item Value Reference Range Interpretation Comments RBC (test code = 2.37 See_Comment L [Automated 789-8) message] The system which generated this result transmit ari reference range : 4.63 - 6.08 M/ L. The reference range was not u sed to interpret th is result as normal/abnormal . CARLEY (test code = CARLEY) Automation Engineering Technician ID - [id number] ID - [id number] Lab Interpretation Abnormal (test code = 21995-3) [facility] campusRed blood cell [id number] 09:29:00 Test Item Value Reference Range Interpretation Comments RBC (test code = 2.37 See_Comment L [Automated 789-8) message] The system which generated this result transmit ari reference range : 4.63 - 6.08 M/ L. The reference range was not u sed to interpret th is result as normal/abnormal . CARLEY (test code = CARLEY) Automation Engineering Technician ID - [id number] ID - [id number] Lab Interpretation Abnormal (test code = 84215-3) [facility] campusRed blood cell [id number] 09:29:00 Test Item Value Reference Range Interpretation Comments RBC (test code = 2.37 See_Comment L [Automated 789-8) message] The system which generated this result transmit ari reference range : 4.63 - 6.08 M/ L. The reference range was not u sed to interpret th is result as normal/abnormal . CARLEY (test code = CARLEY) Automation Engineering Technician ID - [id number] ID - [id number] Lab Interpretation Abnormal (test code = 04355-3) [facility] [place] campusRED BLOOD CELL [id number] 09:29:00 Test Item Value Reference Range Interpretation Comments RED BLOOD CELL COUNT (BEAKER) (test 2.37 M/ L 4.63-6.08 L code = 761) Automation Engineering Technician ID - [id number] ID - [id number] [id number] 08:25:00 Test Item Value Reference Range Interpretation Comments Digoxin Lvl (test code = 1.06 ng/mL 0.8-2 12474-6) CARLEY (test code = CRALEY) Automation Engineering Technician ID - SIMA W Lab Interpretation (test Normal code = 75818-0) [facility] campusDigoxin [id number] 08:25:00 Test Item Value Reference Range Interpretation Comments Digoxin Lvl (test code = 1.06 ng/mL 0.8-2 37674-5) CARLEY (test code = CARLEY) Automation Engineering Technician ID - SIMA W Lab Interpretation (test Normal code = 87676-3) [facility] campusDigoxin [id number] 08:25:00 Test Item Value Reference Range Interpretation Comments Digoxin Lvl (test code = 1.06 ng/mL 0.8-2 79027-3) CARLEY (test code = CARLEY) Automation Engineering Technician ID - SIMA W Lab Interpretation (test Normal code = 88932-3) [place] campusDIGOXIN [id number] 08:25:00 Test Item Value Reference Range Interpretation Comments DIGOXIN LEVEL (BEAKER) (test code 1.06 ng/mL 0.80-2.00 = 669) Automation Engineering Technician ID - SIMA MIDDLETONOCT-GLUCOSE [id number] 07:31:00 Test Item Value Reference Range Interpretation Comments POC-GLUCOSE METER 97 mg/dL 70-110 : TESTED A T [facility] 6720 ([facility]) (test code = [place], 1538) 69328: Automation Engineering Technician/Techni won ID = [id number] for RONAL BROCK [id number] 07:26:00 Test Item Value Reference Range Interpretation Comments PARTIAL THROMBOPLASTIN TIME 35.6 seconds 22.5-36.0 ([facility]) (test code = 760) CBC W/PLT COUNT & AUTO [id number] 07:23:00 Test Item Value Reference Range Interpretation [...] (BEAKER) (test code = 2801) Hepatic function [id number] 07:21:00 Test Item Value Reference Range Interpretation Comments Protein, Total (test 5.6 See_Comment L [Autom ated code = 2885-2) message] The system which generated this result transmit ari reference range : 6.0 - 8.3 gm/dL . The reference range was not u sed to interpret th is result as normal/abnormal . Albumin (test code = 2.3 g/dL 3.5-5 L 21941-9) Total Bilirubin (test 0.6 mg/dL 0.2-1.2 code = 1974-2) Bilirubin, Direct 0.5 mg/dL 0.1-0.5 (test code = 1967-7) Alkaline Phosphatase 134 U/L 40-150 (test code = 6768-6) AST (test code = 39 U/L 5-34 H 1920-8) ALT (test code = 125 U/L 6-55 H 1742-6) CARLEY (test code = CARLEY) Automation Engineering Technician ID - KENNETH Leon Lab Interpretation Abnormal (test code = 39887-5) [facility] campusHepatic function [id number] 07:21:00 Test Item Value Reference Range Interpretation Comments Protein, Total (test 5.6 See_Comment L [Autom ated code = 2885-2) message] The system which generated this result transmit ari reference range : 6.0 - 8.3 gm/dL . The reference range was not u sed to interpret th is result as normal/abnormal . Albumin (test code = 2.3 g/dL 3.5-5 L 17216-3) Total Bilirubin (test 0.6 mg/dL 0.2-1.2 code = 1974-2) Bilirubin, Direct 0.5 mg/dL 0.1-0.5 (test code = 1967-7) Alkaline Phosphatase 134 U/L 40-150 (test code = 6768-6) AST (test code = 39 U/L 5-34 H 1920-8) ALT (test code = 125 U/L 6-55 H 1742-6) CARLEY (test code = CARLEY) Automation Engineering Technician ID - KENNETH W Lab Interpretation Abnormal (test code = 04544-5) [facility] campusHepatic function [id number] 07:21:00 Test Item Value Reference Range Interpretation Comments Protein, Total (test 5.6 See_Comment L [Autom ated code = 2885-2) message] The system which generated this result transmit ari reference range : 6.0 - 8.3 gm/dL . The reference range was not u sed to interpret th is result as normal/abnormal . Albumin (test code = 2.3 g/dL 3.5-5 L 41737-2) Total Bilirubin (test 0.6 mg/dL 0.2-1.2 code = 1975-2) Bilirubin, Direct 0.5 mg/dL 0.1-0.5 (test code = 1968-7) Alkaline Phosphatase 134 U/L 40-150 (test code = 6768-6) AST (test code = 39 U/L 5-34 H 1920-8) ALT (test code = 125 U/L 6-55 H 1742-6) CARLEY (test code = CARLEY) Automation Engineering Technician ID Doretha COOPER W Lab Interpretation Abnormal (test code = 38808-5) [facility] METABOLIC [id number] 07:21:00 Test Item Value Reference Range Interpretation [...] S NOT APPLICABLE FOR DIALYSIS PATIEN TS. Automation Engineering Technician ID - KENNETH [id number] 07:21:00 Test Item Value Reference Range Interpretation Comments MAGNESIUM (BEAKER) (test code = 2.0 mg/dL 1.6-2.6 627) Automation Engineering Technician ID Doretha COOPER [id number] 07:21:00 Test Item Value Reference Range Interpretation Comments PHOSPHORUS (BEAKER) (test code = 3.7 mg/dL 2.3-4.7 604) Automation Engineering Technician ID - KENNETH WHEPATIC FUNCTION [id number] 07:21:00 Test Item Value Reference Range Interpretation [...] code = 125 U/L 6-55 H 347) Automation Engineering Technician ID Doretha COOPER WLACTIC ACID, [id number] 07:18:00 Test Item Value Reference Range Interpretation Comments LACTATE BLOOD 0.7 mmol/L 0.5-2.2 Specimen sligh tly ARTERIAL (2) (BEAKER) hemoly zed (test code = 2874) Automation Engineering Technician ID Doretha COOPER WBLOOD GAS, [id number] 06:44:00 Test Item Value Reference Range Interpretation [...] (BEAKER) (test code = 1819) 70.0 CALCIUM, [id number] 06:42:00 Test Item Value Reference Range Interpretation Comments CALCIUM IONIZED (BEAKER) (test 1.13 mmol/L 1.12-1.27 code = 698) PH, BLOOD (BEAKER) (test code = 7.50 1810) OXYGEN SATURATION, [id number] 06:41:00 Test Item Value Reference Range Interpretation Comments O2 SATURATION (MEASURED) (BEAKER) 74.5 % (test code = 1455) RAD, CHEST, 1 VIEW, NON [id number] 04:31:00Reason for exam:- >intubatedShould this be performed at the bedside?->Yes [facility] : 1975 Sex: MFINAL REPORT [...] Warren MDReport Verified Date/Time: 01/29/2021 04:31:34 POCT-GLUCOSE [id number] 00:55:00 Test Item Value Reference Range Interpretation Comments POC-GLUCOSE METER 116 mg/dL 70-110 H : TESTED A T [facility] 6720 (BEAKER) (test code = NORM R [facility], 1538) 44247: Automation Engineering Technician/Techni won ID = [id number] for VINOD CHAUDHARY [id number] 18:45:00 Test Item Value Reference Range Interpretation Comments Potassium (test code = 3.9 meq/L 3.5-5.1 2823-3) CARLEY (test code = CARLEY) Automation Engineering Technician ID - DB Lab Interpretation (test Normal code = 01005-9) [facility]00 Test Item Value Reference Range Interpretation Comments Sodium (test code = 2951-2) 137 meq/L 136-145 CARLEY (test code = CARLEY) Automation Engineering Technician ID - DB Lab Interpretation (test Normal code = 08330-9) [facility]Potassium20[facility] 18:45:00 Test Item Value Reference Range Interpretation Comments Potassium (test code = 3.9 meq/L 3.5-5.1 2823-3) CARLEY (test code = CARLEY) Automation Engineering Technician ID - DB Lab Interpretation (test Normal code = 73411-5) [facility] 18:45:00 Test Item Value Reference Range Interpretation Comments Sodium (test code = 2951-2) 137 meq/L 136-145 CARLEY (test code = CARLEY) Automation Engineering Technician ID - DB Lab Interpretation (test Normal code = 01898-6) [facility]Potassium20[facility] 18:45:00 Test Item Value Reference Range Interpretation Comments Potassium (test code = 3.9 meq/L 3.5-5.1 2823-3) CARLEY (test code = CARLEY) Automation Engineering Technician ID - DB Lab Interpretation (test Normal code = 66237-1) [facility] 18:45:00 Test Item Value Reference Range Interpretation Comments Sodium (test code = 2951-2) 137 meq/L 136-145 CARLEY (test code = CARLEY) Automation Engineering Technician ID - DB Lab Interpretation (test Normal code = 48861-8) [facility] [place] [facility]MAGNESIUM2021-08-21 18:45:00 Test Item Value Reference Range Interpretation Comments MAGNESIUM (BEAKER) (test code = 1.9 mg/dL 1.6-2.6 627) Automation Engineering Technician ID - [id number] 18:45:00 Test Item Value Reference Range Interpretation Comments PHOSPHORUS (BEAKER) (test code = 2.7 mg/dL 2.3-4.7 604) Automation Engineering Technician ID - [id number] 18:45:00 Test Item Value Reference Range Interpretation Comments POTASSIUM (BEAKER) (test code = 3.9 meq/L 3.5-5.1 379) Automation Engineering Technician ID - [id number] 18:45:00 Test Item Value Reference Range Interpretation Comments SODIUM (BEAKER) (test code = 381) 137 meq/L 136-145 Automation Engineering Technician ID - DBRAD, CHEST, 1 VIEW, NON [id number] 18:36:00Reason for exam:- >Hypoxia, eval chest tubeShould this be performed at the bedside?->Yes [facility] : 1975 Sex: MFINAL REPORT [...] MDReport Verified Date/Time: 01/28/2021 18:36:09 Reading Location: [facility] C013Y [facility] Reading Room POCT-GLUCOSE [id number] 18:29:00 Test Item Value Reference Range Interpretation Comments POC-GLUCOSE METER 91 mg/dL 70-110 : TESTED A T [facility] 6720 (BEAKER) (test code = NORM [place], 1538) [address]: Automation Engineering Technician/Techni won ID = [id number] for RONAL BROCK BLOOD GAS, [id number] 18:20:00 Test Item Value Reference Range Interpretation [...] (BEAKER) (test code = 1819) 100.0 HEMODIALYSIS [id number] 12:55:00Kimmy Mitchell RN 01/28/2021 12:55 PMLab Results [...] Report given to primary RN. [facility]SE [facility] [id number] 12:55:00Kimmy Mitchell RN 01/28/2021 12:55 PMLab Results [...] Report given to primary RN. JOSE [facility] CenterHEMODIALYS[facility] [id number] 12:55:00Kimmy Mitchell RN 01/28/2021 12:55 PMLab Results [...] given to primary RN. Kimmy Mitchell RNCHI St. [facility] CenterPOCT-GLUCOSE [id number] 11:56:00 Test Item Value Reference Range Interpretation Comments POC-GLUCOSE METER 97 mg/dL 70-110 : TESTED A T [facility] 6720 (BEAKER) (test code = NORM [place], 1538) [address]: Automation Engineering Technician/Techni won ID = [id number] for RONAL BROCK PROTHROMBIN TIME/[id number] 09:33:00 Test Item Value Reference Range Interpretation Comments PROTIME (BEAKER) 19.1 seconds 11.9-14.2 H (test code = 759) INR (BEAKER) (test 1.63 See_Comment [Automat ed message] code = 370) The system [employer] generated this result transmitted ref erence range: <=5.90. The reference range was not used to int erpret this result as normal/abnormal . RECOMMENDED COUMADIN/WARFARIN INR THERAPY RANGESSTANDARD DOSE: 2.0 - 3.0 Includes: PROPHYLAXIS forvenous thrombosis, systemic embolization; TREATMENT for venous thrombosis and/or pulmonary embolus.HIGH RISK: Target INR is 2.5-3.5 for patients with mechanical heart valves.BASIC METABOLIC [id number] 09:07:00 Test Item Value Reference Range Interpretation [...] S NOT APPLICABLE FOR DIALYSIS PATIEN TS. Automation Engineering Technician ID - VALDEZ [id number] 09:07:00 Test Item Value Reference Range Interpretation Comments MAGNESIUM (BEAKER) (test code = 2.2 mg/dL 1.6-2.6 627) Automation Engineering Technician ID - VALDEZ [id number] 09:07:00 Test Item Value Reference Range Interpretation Comments PHOSPHORUS (BEAKER) (test code = 3.3 mg/dL 2.3-4.7 604) Automation Engineering Technician ID - VALDEZ MPROTHROMBIN TIME/[id number] 07:41:00 Test Item Value Reference Range Interpretation Comments PROTIME (BEAKER) 18.6 seconds 11.9-14.2 H (test code = 759) INR (BEAKER) (test 1.58 See_Comment [Automat ed message] code = 370) The system [employer] generated this result transmitted ref erence range: <=5.90. The reference range was not used to int erpret this result as normal/abnormal . RECOMMENDED COUMADIN/WARFARIN INR THERAPY RANGESSTANDARD DOSE: 2.0 - 3.0 Includes: PROPHYLAXIS forvenous thrombosis, systemic embolization; TREATMENT for venous thrombosis and/or pulmonary embolus.HIGH RISK: Target INR is 2.5-3.5 for patients with mechanical heart valves.HEPATIC FUNCTION [id number] 06:56:00 Test Item Value Reference Range Interpretation [...] code = 184 U/L 6-55 H 347) Automation Engineering Technician ID - VALDEZ [id number] 06:56:00 Test Item Value Reference Range Interpretation Comments MAGNESIUM (BEAKER) (test code = 2.2 mg/dL 1.6-2.6 627) Automation Engineering Technician ID - VALDEZ [id number] 06:56:00 Test Item Value Reference Range Interpretation Comments PHOSPHORUS (BEAKER) (test code = 3.1 mg/dL 2.3-4.7 604) Automation Engineering Technician ID - VALDEZ [id number] 06:56:00 Test Item Value Reference Range Interpretation Comments POTASSIUM (BEAKER) (test code = 4.5 meq/L 3.5-5.1 379) Automation Engineering Technician ID - VALDEZ MRAD, CHEST, 1 VIEW, NON [id number] 06:36:00Reason for exam:->intubatedShould this be performed at the bedside?->Yes [facility] : 1975 Sex: MFINAL REPORT [...] (BEAKER) (test code = 2801) LACTIC ACID, [id number] 06:30:00 Test Item Value Reference Range Interpretation Comments LACTATE BLOOD ARTERIAL (2) 0.9 mmol/L 0.5-2.2 (BEAKER) (test code = 2874) Automation Engineering Technician ID - VALDEZ [id number] 06:29:00 Test Item Value Reference Range Interpretation Comments PARTIAL THROMBOPLASTIN TIME 37.9 seconds 22.5-36.0 H (BEAKER) (test code = 760) POCT-GLUCOSE [id number] 06:25:00 Test Item Value Reference Range Interpretation Comments POC-GLUCOSE METER 94 mg/dL 70-110 : TESTED A T [facility] 6720 (BEAKER) (test code = NORM [place], 1538) [id number]: Automation Engineering Technician/Techni won ID = [id number] for Asa longManuelito OXYGEN SATURATION, [id number] 05:45:00 Test Item Value Reference Range Interpretation Comments O2 SATURATION (MEASURED) (BEAKER) 84.7 % (test code = 1455) BLOOD GAS, [id number] 05:43:00 Test Item Value Reference Range Interpretation [...] (BEAKER) (test code = 1819) 44.0 CALCIUM, [id number] 05:42:00 Test Item Value Reference Range Interpretation Comments CALCIUM IONIZED (BEAKER) (test 1.19 mmol/L 1.12-1.27 code = 698) PH, BLOOD (BEAKER) (test code = 7.47 1810) POCT-GLUCOSE [id number] 00:02:00 Test Item Value Reference Range Interpretation Comments POC-GLUCOSE METER 97 mg/dL 70-110 : TESTED A T [facility] 6720 (BEAKER) (test code = NORM [place], 1538) 51450: Automation Engineering Technician/Techni won ID = [id number] for AsaManuelito curiel RAD, CHEST, 1 VIEW, NON [id number] 21:24:00Reason for exam:- >tachypnea/assess left side hemothoraxShould this be performed at the bedside?->[facility] : 1975 Sex: MFINAL REPORT [...] Castro Verified Date/Time: 01/27/2021 21:24:57 Reading Location: [facility] LACTIC ACID, [id number] 21:23:00 Test Item Value Reference Range Interpretation Comments LACTATE BLOOD ARTERIAL (2) 1.1 mmol/L 0.5-2.2 (BEAKER) (test code = 2874) Automation Engineering Technician ID - CAROLINA [id number] 21:12:00 Test Item Value Reference Range Interpretation Comments POTASSIUM (BEAKER) (test code = 4.5 meq/L 3.5-5.1 379) Automation Engineering Technician ID - CDPCBC (Hemogram only)2021-01-27 21:05:00 Test Item Value Reference Range Interpretation Comments WBC (test code = 6690-2) 12.5 See_Comment H [A utomated message] The system [employer]Times generated this result transmitted ref erence range: 3.5 - 10 .5 K/L. The refe rence range was not u sed to interpret this result as normal/abnor mal. RBC (test code = 789-8) 2.71 See_Comment L [Au tomated message] The system [employer] generated this result transmitted ref erence range: 4.63 - 6 .08 M/L. The refe rence range was not u sed to interpret this result as normal/abnor mal. MCHC (test code = 786-4) 32.4 See_Comment L [A utomated message] The system [employer] generated this result transmitted ref erence range: [...] L [Aut omated message] 777-3) The system [employer] generated this result transmitted ref erence range: 150 - 45 0 K/CU MM. The referen ce range was not u sed to interpret this result as normal/abnor mal. MPV (test code = 11.2 fL 9.4-12.4 41845-7) nRBC (test code = 413) 0 See_Comment [Aut omated message] The system [employer] generated this result transmitted ref erence range: 0 - 0 /1 00 WBC. The refere nce range was not u sed to interpret this result as normal/abnor mal. Lab Interpretation (test Abnormal code = 77483-2) [facility] (Hemogram only)2021-01-27 21:05:00 Test Item Value Reference Range Interpretation Comments WBC (test code = 6690-2) 12.5 See_Comment H [A utomated message] The system [employer] generated this result transmitted ref erence range: 3.5 - 10 .5 K/L. The refe rence range was not u sed to interpret this result as normal/abnor mal. RBC (test code = 789-8) 2.71 See_Comment L [Au tomated message] The system [employer] generated this result transmitted ref erence range: 4.63 - 6 .08 M/L. The refe rence range was not u sed to interpret this result as normal/abnor mal. MCHC (test code = 786-4) 32.4 See_Comment L [A utomated message] The system [employer] generated this result transmitted ref erence range: [...] L [Aut omated message] 777-3) The system [employer] generated this result transmitted ref erence range: 150 - 45 0 K/CU MM. The referen ce range was not u sed to interpret this result as normal/abnor mal. MPV (test code = 11.2 fL 9.4-12.4 29749-3) nRBC (test code = 413) 0 See_Comment [Aut omated message] The system [employer] generated this result transmitted ref erence range: 0 - 0 /1 00 WBC. The refere nce range was not u sed to interpret this result as normal/abnor mal. Lab Interpretation (test Abnormal code = 15152-6) [facility] (Hemogram only)2021-01-27 21:05:00 Test Item Value Reference Range Interpretation Comments WBC (test code = 6690-2) 12.5 See_Comment H [A utomated message] The system [employer] generated this result transmitted ref erence range: 3.5 - 10 .5 K/L. The refe rence range was not u sed to interpret this result as normal/abnor mal. RBC (test code = 789-8) 2.71 See_Comment L [Au tomated message] The system [employer] generated this result transmitted ref erence range: 4.63 - 6 .08 M/L. The refe rence range was not u sed to interpret this result as normal/abnor mal. MCHC (test code = 786-4) 32.4 See_Comment L [A utomated message] The system [employer] generated this result transmitted ref erence range: [...] L [Aut omated message] 777-3) The system [employer] generated this result transmitted ref erence range: 150 - 45 0 K/CU MM. The referen ce range was not u sed to interpret this result as normal/abnor mal. MPV (test code = 11.2 fL 9.4-12.4 86199-7) nRBC (test code = 413) 0 See_Comment [Aut omated message] The system [employer] generated this result transmitted ref erence range: 0 - 0 /1 00 WBC. The refere nce range was not u sed to interpret this result as normal/abnor mal. Lab Interpretation (test Abnormal code = 42361-9) [facility] (HEMOGRAM ONLY)2021-01-27 21:05:00 Test Item Value Reference [...] (BEAKER) (test code = 413) BLOOD GAS, [id number] 20:50:00 Test Item Value Reference Range Interpretation [...] FIO2 (BEAKER) (test code = 1819) 36.0 [id number] 18:51:00 Test Item Value Reference Range Interpretation Comments MAGNESIUM (BEAKER) (test code = 2.2 mg/dL 1.6-2.6 627) Automation Engineering Technician ID - [id number] 18:51:00 Test Item Value Reference Range Interpretation Comments PHOSPHORUS (BEAKER) (test code = 3.2 mg/dL 2.3-4.7 604) Automation Engineering Technician ID - [id number] 18:51:00 Test Item Value Reference Range Interpretation Comments POTASSIUM (BEAKER) (test code = 4.3 meq/L 3.5-5.1 379) Automation Engineering Technician ID - [id number] 18:51:00 Test Item Value Reference Range Interpretation Comments SODIUM (BEAKER) (test code = 381) 135 meq/L 136-145 L Automation Engineering Technician ID - [id number] 12:12:00 Test Item Value Reference Range Interpretation Comments MAGNESIUM (BEAKER) (test code = 2.1 mg/dL 1.6-2.6 627) Automation Engineering Technician ID - GEMINI [id number] 12:12:00 Test Item Value Reference Range Interpretation Comments PHOSPHORUS (BEAKER) (test code = 2.9 mg/dL 2.3-4.7 604) Automation Engineering Technician ID - GEMINI [id number] 12:12:00 Test Item Value Reference Range Interpretation Comments POTASSIUM (BEAKER) (test code = 4.4 meq/L 3.5-5.1 379) Automation Engineering Technician ID - GEMINI FPOCT-GLUCOSE [id number] 11:53:00 Test Item Value Reference Range Interpretation Comments POC-GLUCOSE METER 91 mg/dL 70-110 : TESTED Elias Dominguez [facility] 6720 (TAMARA) (test code = NORM [address] [place], 1538) [address]24: Automation Engineering Technician/Techni won ID = [id number] for RONAL BROCK, CHEST, 1 VIEW, NON [id number] 07:51:00Reason for exam:- >intubatedShould this be performed at the bedside?->Yes [facility] : 1975 Sex: MFINAL REPORT [...] Browning[place]ing Verified Date/Time: 01/27/2021 07:51:17 Reading Location: [facility] Diagnostic Imaging Reading Room - SLSWV F1 1129 BASIC METABOLIC [id number] 07:12:00 Test Item Value Reference Range Interpretation [...] S NOT APPLICABLE FOR DIALYSIS PATIEN TS. Automation Engineering Technician ID - GEMINI FPROTHROMBIN TIME/[id number] 07:09:00 Test Item Value Reference Range Interpretation Comments PROTIME (BEAKER) 17.1 seconds 11.9-14.2 H (test code = 759) INR (BEAKER) (test 1.42 See_Comment [Automat ed message] code = 370) The system [employer] generated this result transmitted ref erence range: <=5.90. The reference range was not used to int erpret this result as normal/abnormal . RECOMMENDED COUMADIN/WARFARIN INR THERAPY RANGESSTANDARD DOSE: 2.0 - 3.0 Includes: PROPHYLAXIS forvenous thrombosis, systemic embolization; TREATMENT for venous thrombosis and/or pulmonary embolus.HIGH RISK: Target INR is 2.5-3.5 for patients with mechanical heart valves.HEPATIC FUNCTION [id number] 04:21:00 Test Item Value Reference Range Interpretation [...] code = 248 U/L 6-55 H 347) Automation Engineering Technician ID - LINA [id number] 04:21:00 Test Item Value Reference Range Interpretation Comments MAGNESIUM (BEAKER) (test code = 2.1 mg/dL 1.6-2.6 627) Automation Engineering Technician ID - LINA [id number] 04:21:00 Test Item Value Reference Range Interpretation Comments PHOSPHORUS (BEAKER) (test code = 2.5 mg/dL 2.3-4.7 604) Automation Engineering Technician ID - LINA [id number] 04:21:00 Test Item Value Reference Range Interpretation Comments POTASSIUM (BEAKER) (test code = 4.0 meq/L 3.5-5.1 379) Automation Engineering Technician ID - LINA [id number] 04:14:00 Test Item Value Reference Range Interpretation Comments PARTIAL THROMBOPLASTIN TIME 35.4 seconds 22.5-36.0 (BEAKER) (test code = 760) LACTIC ACID, [id number] 04:05:00 Test Item Value Reference Range Interpretation Comments LACTATE BLOOD ARTERIAL (2) 0.9 mmol/L 0.5-2.2 (BEAKER) (test code = 2874) Automation Engineering Technician ID - LINA LCBC W/PLT COUNT & AUTO [id number] 03:58:00 Test Item Value Reference Range Interpretation [...] (BEAKER) (test code = 2801) BLOOD GAS, [id number] 03:52:00 Test Item Value Reference Range Interpretation [...] (test code = 1819) 100.0 OXYGEN SATURATION, [id number] 03:50:00 Test Item Value Reference Range Interpretation Comments O2 SATURATION (MEASURED) (BEAKER) 64.2 % (test code = 1455) CALCIUM, [id number] 03:50:00 Test Item Value Reference Range Interpretation Comments CALCIUM IONIZED (BEAKER) (test 1.15 mmol/L 1.12-1.27 code = 698) PH, BLOOD (BEAKER) (test code = 7.43 1810) Insert Arterial [id number] 23:51:37Jes Ramos NP 01/26/2021 11:56 PMInsert Arterial [...] to verify the correct patient, procedure, equipment, integrated logistics support manager and site/side marked as required.Preparation:Patient was prepped and draped in the usual sterile fashion.Indications: multiple ABGs and hemodynamic monitoringLocation: left radialAnesthesia: local infiltration Anesthesia:Local Anesthetic: lidocaine 2% without epinephrine Sedation:Patient sedated: no Parish's test normal: yesNeedle gauge: 20Seldinger technique: Seldinger technique usedPost-procedure: line sutured and dressing appliedPost-procedure CMS: [facility] Arterial [id number] 23:51:37Jes Ramos NP 01/26/2021 11:56 PMInsert Arterial [...] to verify the correct patient, procedure, equipment, integrated logistics support manager and site/side marked as required.Preparation:Patient was prepped and draped in the usual sterile fashion.Indications: multiple ABGs and hemodynamic monitoringLocation: left radialAnesthesia: local infiltration Anesthesia:Local Anesthetic: lidocaine 2% without epinephrine Sedation:Patient sedated: no Parish's test normal: yesNeedle gauge: 20Seldinger technique: Seldinger technique usedPost-procedure: line sutured and dressing appliedPost-procedure CMS: [facility] Arterial [id number] 23:51:37Jes Ramos NP 01/26/2021 11:56 PMInsert Arterial [...] to verify the correct patient, procedure, equipment, integrated logistics support manager and site/side marked as required.Preparation:Patient was prepped and draped in the usual sterile fashion.Indications: multiple ABGs and hemodynamic monitoringLocation: left radialAnesthesia: local infiltration Anesthesia:Local Anesthetic: lidocaine 2% without epinephrine Sedation:Patient sedated: no Parish's test normal: yesNeedle gauge: 20Seldinger technique: Seldinger technique usedPost-procedure: line sutured and dressing appliedPost-procedure [facility] [id number] 22:14:00 Test Item Value Reference Range Interpretation Comments POC-GLUCOSE METER 107 mg/dL 70-110 : TESTED A T [facility] 6720 (BEAKER) (test code = NORM [place], 1538) 29844: Automation Engineering Technician/Techni won ID = [id number] for DO September BASIC METABOLIC [id number] 21:01:00 Test Item Value Reference Range Interpretation [...] S NOT APPLICABLE FOR DIALYSIS PATIEN TS. Automation Engineering Technician ID - [id number] 21:01:00 Test Item Value Reference Range Interpretation Comments MAGNESIUM (BEAKER) (test code = 2.2 mg/dL 1.6-2.6 627) Automation Engineering Technician ID - [id number] 21:01:00 Test Item Value Reference Range Interpretation Comments PHOSPHORUS (BEAKER) (test code = 2.0 mg/dL 2.3-4.7 L 604) Automation Engineering Technician ID - BSCALCIUM, [id number] 20:38:00 Test Item Value Reference Range Interpretation Comments CALCIUM IONIZED (BEAKER) (test 1.24 mmol/L 1.12-1.27 code = 698) PH, BLOOD (BEAKER) (test code = 7.43 1810) [id number] 17:42:00 Test Item Value Reference Range Interpretation Comments POTASSIUM (BEAKER) (test code = 4.2 meq/L 3.5-5.1 379) Automation Engineering Technician ID - BSPOCT-GLUCOSE [id number] 17:02:00 Test Item Value Reference Range Interpretation Comments POC-GLUCOSE METER 105 mg/dL 70-110 : TESTED A T [facility] 6720 (BEAKER) (test code = [facility], 1538) [address]: Automation Engineering Technician/Techni won ID = [id number] for ABRAN PALOMINO [id number] 12:47:00 Test Item Value Reference Range Interpretation Comments POTASSIUM (BEAKER) (test code = 4.3 meq/L 3.5-5.1 379) Automation Engineering Technician ID - AMARISONPOCT-GLUCOSE [id number] 12:25:00 Test Item Value Reference Range Interpretation Comments POC-GLUCOSE METER 100 mg/dL 70-110 : TESTED A T [facility] 6720 (BEAKER) (test code = [facility], 1538) 87703: Automation Engineering Technician/Techni won ID = [id number] for ABRAN PALOMINO [id number] 08:42:00 Test Item Value Reference Range Interpretation Comments MAGNESIUM (BEAKER) (test code = 2.1 mg/dL 1.6-2.6 627) Automation Engineering Technician ID - [id number] 08:42:00 Test Item Value Reference Range Interpretation Comments PHOSPHORUS (BEAKER) (test code = 2.7 mg/dL 2.3-4.7 604) Automation Engineering Technician ID - [id number] 08:42:00 Test Item Value Reference Range Interpretation Comments POTASSIUM (BEAKER) (test code = 4.4 meq/L 3.5-5.1 379) Automation Engineering Technician ID - JOJOPrepare [id number] 08:26:00 Test Item Value Reference Range Interpretation Comments Unit ABO (test code = O Pos 0392203) UNIT NUMBER (test code = [id number] 934-0) Status (test code = RETURNED FROM ISSUE 15100819) Blood Bank Product (test RED BLOOD CELLS code = 2263) PRODUCT CODE (test code = G4140C15 933-2) CROSSMATCH (test code = COMPATIBLE 4) [facility] [id number] 08:26:00 Test Item Value Reference Range Interpretation Comments Unit ABO (test code = O Pos 4060624) UNIT NUMBER (test code = [id number] 934-0) Status (test code = RETURNED FROM ISSUE 15100819) Blood Bank Product (test RED BLOOD CELLS code = 2263) PRODUCT CODE (test code = C9784A99 933-2) CROSSMATCH (test code = COMPATIBLE 2264) [facility] [id number] 08:26:00 Test Item Value Reference Range Interpretation Comments Unit ABO (test code = O Pos 5947643) UNIT NUMBER (test code = [id number] 934-0) Status (test code = RETURNED FROM ISSUE 15100819) Blood Bank Product (test RED BLOOD CELLS code = 2263) PRODUCT CODE (test code = C5173U45 933-2) CROSSMATCH (test code = COMPATIBLE 2264) [place] [facility]POCT-GLUCOSE [id number] 08:26:00 Test Item Value Reference Range Interpretation Comments POC-GLUCOSE METER 103 mg/dL 70-110 : TESTED A T [facility] 6720 (BEAKER) (test code = [place], 1538) [address]: Automation Engineering Technician/Techni won ID = [id number] for SYLWIA TIAN NCREZA CALCIUM, [id number] 07:15:00 Test Item Value Reference Range Interpretation Comments CALCIUM IONIZED (BEAKER) (test 1.19 mmol/L 1.12-1.27 code = 698) PH, BLOOD (BEAKER) (test code = 7.41 1810) BLOOD GAS, [id number] 06:40:00 Test Item Value Reference Range Interpretation [...] (BEAKER) (test code = 1819) 40.0 DIGOXIN [id number] 05:24:00 Test Item Value Reference Range Interpretation Comments DIGOXIN LEVEL (BEAKER) (test code 0.76 ng/mL 0.80-2.00 L = 669) Automation Engineering Technician ID - VALDEZ MOXYGEN SATURATION, [id number] 05:13:00 Test Item Value Reference Range Interpretation Comments O2 SATURATION (MEASURED) (BEAKER) 62.6 % (test code = 1455) BLOOD GAS, [id number] 05:11:00 Test Item Value Reference Range Interpretation [...] FIO2 (BEAKER) (test code = 1819) 40.0 [id number] 05:04:00 Test Item Value Reference Range Interpretation Comments PHOSPHORUS (BEAKER) (test code = 1.0 mg/dL 2.3-4.7 LL 604) Automation Engineering Technician ID - VALDEZ MBASIC METABOLIC [id number] 04:53:00 Test Item Value Reference Range Interpretation [...] S NOT APPLICABLE FOR DIALYSIS PATIEN TS. Automation Engineering Technician ID - VALDEZ [id number] 04:53:00 Test Item Value Reference Range Interpretation Comments MAGNESIUM (BEAKER) (test code = 2.3 mg/dL 1.6-2.6 627) Automation Engineering Technician ID - VALDEZ [id number] 04:44:00 Test Item Value Reference Range Interpretation Comments PARTIAL THROMBOPLASTIN TIME 35.3 seconds 22.5-36.0 (BEAKER) (test code = 760) PROTHROMBIN [id number] 04:43:00 Test Item Value Reference Range Interpretation Comments PROTIME (BEAKER) 16.6 seconds 11.9-14.2 H (test code = 759) INR (BEAKER) (test 1.36 See_Comment [Automat ed message] code = 370) The system [employer] generated this result transmitted ref erence range: [...] (BEAKER) (test code = 2801) LACTIC ACID, [id number] 04:38:00 Test Item Value Reference Range Interpretation Comments LACTATE BLOOD ARTERIAL (2) 1.5 mmol/L 0.5-2.2 (BEAKER) (test code = 2874) Automation Engineering Technician ID - VALDEZ MBLOOD GAS, [id number] 04:34:00 Test Item Value Reference Range Interpretation [...] 1819) 40.0 RAD, CHEST, 1 VIEW, NON [id number] 02:40:00Reason for exam:- >intubatedShould this be performed at the bedside?->Yes [facility] 1975 Sex: MFINAL REPORT RAD, CHEST, 1 VIEW, NON DEPT INDICATION: intubated TESFAYE RISON: Prior day's exam FINDINGS: Portable frontal view of the chest. IMPRESSION: Support Lines: No significant change. Lungs and pleura: Unchanged airspace and pleural opacities. No pneumothorax.Heart and mediastinum: Stable cardiomegaly. Additional findings: None. Signed: Abhay Melo Verified Date/Time: 01/26/2021 02:40:28 RAD, ABDOMEN/KUB, 1 VIEW [id number] 00:28:00Reason for exam:->Corpak position [facility] : 1975 Sex: MFINAL REPORT [...] 01/26/2021 00:28:31 XR abdomen / KUB 1 [id number] 00:28:00Interface, External Ris In - 01/26/2021 12:30 [...] Signed: Buck Warren Verified Date/Time: 01/26/2021 00:28:31 [facility] [id number] 00:28:00Interface, External Ris In - 01/26/2021 12:30 [...] Signed: Buck Warren Verified Date/Time: 01/26/2021 00:28:31 [facility] [id number] 00:28:00Interface, External Ris In - 01/26/2021 12:30 [...] Signed: Buck Warreneport Verified Date/Time: 01/26/2021 00:28:31 [facility] [id number] 22:11:00 Test Item Value Reference Range Interpretation Comments POC-GLUCOSE METER 97 mg/dL 70-110 : TESTED A T [facility] 6720 (BEAKER) (test code = [place], 1538) [address]: Automation Engineering Technician/Techni won ID = [id number] for MESERET ETTSeptember BASIC METABOLIC [id number] 20:58:00 Test Item Value Reference Range Interpretation [...] 697) EGFR (BEAKER) (test 62 mL/min/1.73 ESTIMA ARI GFR IS code = 1092) sq m NOT ACCURATE CREATININE CLEARANCE IN PREDICTING GLOMERULAR FILTRATION RATE . ESTIMATED GFR I S NOT APPLICABLE FOR DIALYSIS PATIEN TS. Automation Engineering Technician ID - KNCIDWMPRJUW3304-07-66 20:58:00 Test Item Value Reference Range Interpretation Comments MAGNESIUM (BEAKER) (test code = 1.9 mg/dL 1.6-2.6 627) Automation Engineering Technician ID - CDPPOCT-GLUCOSE [id number] 18:18:00 Test Item Value Reference Range Interpretation Comments POC-GLUCOSE METER 103 mg/dL 70-110 : TESTED A T [facility] 6720 (BEAKER) (test code = [place], 1538) [address]: Automation Engineering Technician/Techni won ID = [id number] for LEVY BARBOZA [id number] 17:35:00 Test Item Value Reference Range Interpretation Comments MAGNESIUM (BEAKER) (test code = 2.1 mg/dL 1.6-2.6 627) Automation Engineering Technician ID - [id number] 17:35:00 Test Item Value Reference Range Interpretation Comments PHOSPHORUS (BEAKER) (test code = 2.0 mg/dL 2.3-4.7 L 604) Automation Engineering Technician ID - [id number] 17:35:00 Test Item Value Reference Range Interpretation Comments POTASSIUM (BEAKER) (test code = 3.8 meq/L 3.5-5.1 379) Automation Engineering Technician ID - [id number] 17:35:00 Test Item Value Reference Range Interpretation Comments SODIUM (BEAKER) (test code = 381) 136 meq/L 136-145 Automation Engineering Technician ID - CDPBLOOD GAS, [id number] 16:13:00 Test Item Value Reference Range Interpretation [...] 1819) 40.0 CBC W/PLT COUNT & AUTO [id number] 14:29:00 Test Item Value Reference Range Interpretation [...] PERCENT (BEAKER) (test code = 2801) POCT-GLUCOSE [id number] 13:31:00 Test Item Value Reference Range Interpretation Comments POC-GLUCOSE METER 92 mg/dL 70-110 : TESTED A T [facility] 6720 (BEAKER) (test code = [place], 1538) [address]: Automation Engineering Technician/Techni won ID = [id number] for LEVY MINER BASIC METABOLIC [id number] 12:31:00 Test Item Value Reference Range Interpretation [...] S NOT APPLICABLE FOR DIALYSIS PATIEN TS. Automation Engineering Technician ID - [id number] 12:31:00 Test Item Value Reference Range Interpretation Comments MAGNESIUM (BEAKER) (test code = 2.0 mg/dL 1.6-2.6 627) Automation Engineering Technician ID - BPKUXLCGROIYQHQMS4726-11-62 12:31:00 Test Item Value Reference Range Interpretation Comments PHOSPHORUS (BEAKER) (test code = 2.0 mg/dL 2.3-4.7 L 604) Automation Engineering Technician ID - EMERSONCALCIUM, [id number] 12:07:00 Test Item Value Reference Range Interpretation Comments CALCIUM IONIZED (BEAKER) (test 1.22 mmol/L 1.12-1.27 code = 698) PH, BLOOD (BEAKER) (test code = 7.50 1810) RAD, CHEST, 1 VIEW, NON [id number] 09:54:00Reason for exam:- >intubatedShould this be performed at the bedside?->Yes [facility] : 1975 Sex: MFINAL REPORT CLINICAL HISTORY: intubated TECHNIQUE: [address] COMPARISON: 01/24/2021 IMPRESSION: The supporting lines and tubes are similar appearing. Bilateral airspace opacities and a left pleural effusion are grossly unchanged. The cardiomediastinal silhouette is magnified by technique with sternotomy wires. Signed: Melodie Zarateort Verified Date/Time: 01/25/2021 09:54:23 Reading Location: [facility] Radiology Reading Room POCT- GLUCOSE [id number] 08:19:00 Test Item Value Reference Range Interpretation Comments POC-GLUCOSE METER 106 mg/dL 70-110 : TESTED A T [facility] 6720 (BEAKER) (test code = [place], 1538) [address]: Automation Engineering Technician/Techni won ID = [id number] for LISA SWENSONYohan LEVY CALCIUM, [id number] 04:51:00 Test Item Value Reference Range Interpretation Comments CALCIUM IONIZED (BEAKER) (test 1.20 mmol/L 1.12-1.27 code = 698) PH, BLOOD (BEAKER) (test code = 7.44 1810) BLOOD GAS, [id number] 04:50:00 Test Item Value Reference Range Interpretation [...] (test code = 1819) 40.0 OXYGEN SATURATION, [id number] 04:48:00 Test Item Value Reference Range Interpretation Comments O2 SATURATION (MEASURED) (BEAKER) 96.3 % (test code = 1455) BASIC METABOLIC [id number] 04:39:00 Test Item Value Reference Range Interpretation [...] S NOT APPLICABLE FOR DIALYSIS PATIEN TS. Automation Engineering Technician ID - KENNETH [id number] 04:39:00 Test Item Value Reference Range Interpretation Comments MAGNESIUM (BEAKER) (test code = 2.0 mg/dL 1.6-2.6 627) Automation Engineering Technician ID - KENNETH [id number] 04:39:00 Test Item Value Reference Range Interpretation Comments PHOSPHORUS (BEAKER) (test code = 2.1 mg/dL 2.3-4.7 L 604) Automation Engineering Technician ID - KENNETH WLACTIC ACID, [id number] 04:30:00 Test Item Value Reference Range Interpretation Comments LACTATE BLOOD ARTERIAL (2) 0.7 mmol/L 0.5-2.2 (BEAKER) (test code = 2874) Automation Engineering Technician ID - LINA [id number] 04:26:00 Test Item Value Reference Range Interpretation Comments PARTIAL THROMBOPLASTIN TIME 35.4 seconds 22.5-36.0 (BEAKER) (test code = 760) PROTHROMBIN [id number] 04:25:00 Test Item Value Reference Range Interpretation Comments PROTIME (BEAKER) 16.3 seconds 11.9-14.2 H (test code = 759) INR (BEAKER) (test 1.34 See_Comment [Automat ed message] code = 370) The system [employer] generated this result transmitted ref erence range: [...] PERCENT (BEAKER) (test code = 2801) POCT-GLUCOSE [id number] 00:25:00 Test Item Value Reference Range Interpretation Comments POC-GLUCOSE METER 87 mg/dL 70-110 : TESTED A T [facility] 6720 (BEAKER) (test code = [place], 1538) [address]: Automation Engineering Technician/Techni won ID = [id number] for JAYLA DOWNEY Prepare [id number] 23:55:00 Test Item Value Reference Range Interpretation Comments Unit ABO (test code = 5091398) A Pos UNIT NUMBER (test code = [id number] 934-0) Status (test code = 6160680) [place]_TIMEINCHART Blood Bank Product (test code FFP = 2263) PRODUCT CODE (test code = Q1273C71 933-2) [facility] [id number] 23:55:00 Test Item Value Reference Range Interpretation Comments Unit ABO (test code = 3071399) O Neg UNIT NUMBER (test code = [id number] 934-0) Status (test code = 5917066) TX_TIMEINCHART Blood Bank Product (test code PLATELETS = 2263) PRODUCT CODE (test code = K9274R22 933-2) [facility] Leuko-Red [id number] 23:55:00 Test Item Value Reference Range Interpretation Comments Unit ABO (test code = 7572263) O Neg UNIT NUMBER (test code = [id number] 934-0) Status (test code = 1513971) TX_TIMEINCHART Blood Bank Product (test code PLATELETS = 2263) PRODUCT CODE (test code = F7046C61 933-2) [facility] [id number] 23:55:00 Test Item Value Reference Range Interpretation Comments Unit ABO (test code = 1580774) A Pos UNIT NUMBER (test code = [id number] 934-0) Status (test code = 2054011) TX_TIMEINCHART Blood Bank Product (test code FFP = 2263) PRODUCT CODE (test code = U2055Z99 933-2) [facility] [id number] 23:55:00 Test Item Value Reference Range Interpretation Comments Unit ABO (test code = 2746385) O Neg UNIT NUMBER (test code = [id number] 934-0) Status (test code = 0371879) TX_TIMEINCHART Blood Bank Product (test code PLATELETS = 2263) PRODUCT CODE (test code = M1099L27 933-2) [facility] Leuko-Red [id number] 23:55:00 Test Item Value Reference Range Interpretation Comments Unit ABO (test code = 9968381) O Neg UNIT NUMBER (test code = [id number] 934-0) Status (test code = 6595097) [place]_TIMEINCHART Blood Bank Product (test code PLATELETS = 2263) PRODUCT CODE (test code = E0290R15 933-2) [facility] [id number] 23:55:00 Test Item Value Reference Range Interpretation Comments Unit ABO (test code = 6875074) A Pos UNIT NUMBER (test code = [id number] 934-0) Status (test code = 5764374) TX_TIMEINCHART Blood Bank Product (test code FFP = 2263) PRODUCT CODE (test code = A6890G87 933-2) [facility] [id number] 23:55:00 Test Item Value Reference Range Interpretation Comments Unit ABO (test code = 7073911) O Neg UNIT NUMBER (test code = [id number] 934-0) Status (test code = 3244397) TX_TIMEINCHART Blood Bank Product (test code PLATELETS = 2263) PRODUCT CODE (test code = V8885V44 933-2) [facility] Leuk[facility] [id number] 23:55:00 Test Item Value Reference Range Interpretation Comments Unit ABO (test code = 5239422) O Neg UNIT NUMBER (test code = [id number] 934-0) Status (test code = 2778989) TX_TIMEINCHART Blood Bank Product (test code PLATELETS = 2263) PRODUCT CODE (test code = B8047T47 933-2) [facility] [id number] 22:10:00 Test Item Value Reference Range Interpretation Comments SODIUM (BEAKER) (test code = 381) 134 meq/L 136-145 L GLUCOSE-STAT [id number] 22:10:00 Test Item Value Reference Range Interpretation Comments GLUCOSE RANDOM (BEAKER) (test code 115 mg/dL 70-110 H = 652) HGB/HCT (H&H) - STAT [id number] 22:10:00 Test Item Value Reference Range Interpretation Comments HEMOGLOBIN (BEAKER) (test code = 7.6 GM/DL 13.0-16.8 L 410) HEMATOCRIT (BEAKER) (test code = 22.0 % 40.0-50.0 L 411) BLOOD GAS, [id number] 22:10:00 Test Item Value Reference Range Interpretation [...] (BEAKER) (test code = 1819) 40.0 POTASSIUM-STAT [id number] 22:07:00 Test Item Value Reference Range Interpretation Comments POTASSIUM (BEAKER) (test code = 3.8 meq/L 3.6-5.5 379) BASIC METABOLIC [id number] 18:50:00 Test Item Value Reference Range Interpretation [...] S NOT APPLICABLE FOR DIALYSIS PATIEN TS. Automation Engineering Technician ID - [id number] 18:50:00 Test Item Value Reference Range Interpretation Comments MAGNESIUM (BEAKER) (test code = 2.2 mg/dL 1.6-2.6 627) Automation Engineering Technician ID - [id number] 18:50:00 Test Item Value Reference Range Interpretation Comments PHOSPHORUS (BEAKER) (test code = 3.1 mg/dL 2.3-4.7 604) Automation Engineering Technician ID - CDPPOCT-GLUCOSE [id number] 13:09:00 Test Item Value Reference Range Interpretation Comments POC-GLUCOSE METER 101 mg/dL 70-110 : TESTED A T [facility] 6720 (BEAKER) (test code = [place], 1538) [address]: Automation Engineering Technician/Techni won ID = [id number] for KISHORE VELASQUEZ CBC W/PLT COUNT & AUTO [id number] 12:45:00 Test Item Value Reference Range Interpretation [...] H PERCENT (BEAKER) (test code = 2801) [id number] 12:38:00 Test Item Value Reference Range Interpretation Comments MAGNESIUM (BEAKER) (test code = 2.0 mg/dL 1.6-2.6 627) Automation Engineering Technician ID - LINA [id number] 12:38:00 Test Item Value Reference Range Interpretation Comments PHOSPHORUS (BEAKER) (test code = 3.5 mg/dL 2.3-4.7 604) Automation Engineering Technician ID - LINA [id number] 12:38:00 Test Item Value Reference Range Interpretation Comments POTASSIUM (BEAKER) (test code = 4.4 meq/L 3.5-5.1 379) Automation Engineering Technician ID - LINA LHEPATIC FUNCTION [id number] 10:44:00 Test Item Value Reference Range Interpretation [...] code = 427 U/L 6-55 H 347) Automation Engineering Technician ID - LINA LBLOOD GAS, [id number] 10:40:00 Test Item Value Reference Range Interpretation [...] 1819) 40.0 RAD, CHEST, 1 VIEW, NON [id number] 08:49:00Reason for exam:- >intubatedShould this be performed at the bedside?->Yes [facility] : 1975 Sex: MFINAL REPORT CLINICAL HISTORY: intubated TECHNIQUE: 1 [address] of the [address] COMPARISON: 01/23/2021 IMPRESSION: The supporting lines and tubes are similar appearing. Bilateral airspace opacities are similar. A small pleural effusions unchanged. The cardiomediastinal silhouette is magnified by technique with sternotomy wires. Signed: Melodie Zarate MDReport Verified Date/Time: 01/24/2021 08:49:07 Reading Location: [facility] Radiology Reading Room BASIC METABOLIC [id number] 03:54:00 Test Item Value Reference Range Interpretation [...] S NOT APPLICABLE FOR DIALYSIS PATIEN TS. Automation Engineering Technician ID - VALDEZ [id number] 03:54:00 Test Item Value Reference Range Interpretation Comments MAGNESIUM (BEAKER) (test code = 2.2 mg/dL 1.6-2.6 627) Automation Engineering Technician ID - VALDEZ [id number] 03:54:00 Test Item Value Reference Range Interpretation Comments PHOSPHORUS (BEAKER) (test code = 2.8 mg/dL 2.3-4.7 604) Automation Engineering Technician ID - VALDEZ [id number] 03:49:00 Test Item Value Reference Range Interpretation Comments PARTIAL THROMBOPLASTIN TIME 36.8 seconds 22.5-36.0 H (BEAKER) (test code = 760) PROTHROMBIN TIME/[id number] 03:48:00 Test Item Value Reference Range Interpretation Comments PROTIME (BEAKER) 18.6 seconds 11.9-14.2 H (test code = 759) INR (BEAKER) (test 1.57 See_Comment [Automat ed message] code = 370) The system [employer] generated this result transmitted ref erence range: [...] (BEAKER) (test code = 2801) LACTIC ACID, [id number] 03:37:00 Test Item Value Reference Range Interpretation Comments LACTATE BLOOD ARTERIAL (2) 1.4 mmol/L 0.5-2.2 (BEAKER) (test code = 2874) Automation Engineering Technician ID - VALDEZ MBLOOD GAS, [id number] 03:26:00 Test Item Value Reference Range Interpretation [...] (BEAKER) (test code = 1819) 40.0 CALCIUM, [id number] 03:24:00 Test Item Value Reference Range Interpretation Comments CALCIUM IONIZED (BEAKER) (test 1.20 mmol/L 1.12-1.27 code = 698) PH, BLOOD (BEAKER) (test code = 7.48 1810) OXYGEN SATURATION, [id number] 03:23:00 Test Item Value Reference Range Interpretation Comments O2 SATURATION (MEASURED) (BEAKER) 64.1 % (test code = 1455) CBC W/PLT COUNT & AUTO [id number] 01:33:00 Test Item Value Reference Range Interpretation [...] (BEAKER) (test code = 2801) LACTIC ACID, [id number] 00:48:00 Test Item Value Reference Range Interpretation Comments LACTATE BLOOD ARTERIAL (2) 1.4 mmol/L 0.5-2.2 (BEAKER) (test code = 2874) Automation Engineering Technician ID - LINA LBLOOD GAS, [id number] 00:37:00 Test Item Value Reference Range Interpretation [...] (BEAKER) (test code = 1819) 40.0 POCT-GLUCOSE [id number] 23:22:00 Test Item Value Reference Range Interpretation Comments POC-GLUCOSE METER 102 mg/dL 70-110 : TESTED A T [facility] 6720 (BEAKER) (test code = [place], 1538) [address]: Automation Engineering Technician/Techni won ID = [id number] for ARI MAYER [id number] 22:00:00 Test Item Value Reference Range Interpretation Comments MAGNESIUM (BEAKER) 2.1 mg/dL 1.6-2.6 Specimen slightly (test code = 627) hemolyzed Automation Engineering Technician ID - [id number] 22:00:00 Test Item Value Reference Range Interpretation Comments PHOSPHORUS (BEAKER) 3.0 mg/dL 2.3-4.7 Specimen slightly (test code = 604) hemolyzed Automation Engineering Technician ID - DBBASIC METABOLIC [id number] 22:00:00 Test Item Value Reference Range Interpretation [...] S NOT APPLICABLE FOR DIALYSIS PATIEN TS. Automation Engineering Technician ID - DBCBC W/PLT COUNT & AUTO [id number] 21:49:00 Test Item Value Reference Range Interpretation [...] H PERCENT (BEAKER) (test code = 2801) [id number] 21:45:00 Test Item Value Reference Range Interpretation Comments Fibrinogen (test code = 3255-7) 253 mg/dl 225-434 Lab Interpretation (test code = Normal 86655-5) [facility] 21:45:00 Test Item Value Reference Range Interpretation Comments Fibrinogen (test code = 3255-7) 253 mg/dl 225-434 Lab Interpretation (test code = Normal 90013-8) [facility] 21:45:00 Test Item Value Reference Range Interpretation Comments Fibrinogen (test code = 3255-7) 253 mg/dl 225-434 Lab Interpretation (test code = Normal 90746-2) [facility]2021-[facility] 21:45:00 Test Item Value Reference Range Interpretation Comments FIBRINOGEN LEVEL (BEAKER) (test 253 mg/dl 225-434 code = 658) [id number] 21:45:00 Test Item Value Reference Range Interpretation Comments PARTIAL THROMBOPLASTIN TIME 37.3 seconds 22.5-36.0 H (BEAKER) (test code = 760) PROTHROMBIN TIME/[id number] 21:44:00 Test Item Value Reference Range Interpretation Comments PROTIME (BEAKER) 19.4 seconds 11.9-14.2 H (test code = 759) INR (BEAKER) (test 1.66 See_Comment [Automat ed message] code = 370) The system [employer] generated this result transmitted ref erence range: <=5.90. The reference range was not used to int erpret this result as normal/abnormal . RECOMMENDED COUMADIN/WARFARIN INR THERAPY RANGESSTANDARD DOSE: 2.0 - 3.0 Includes: PROPHYLAXIS forvenous thrombosis, systemic embolization; TREATMENT for venous thrombosis and/or pulmonary embolus.HIGH RISK: Target INR is 2.5-3.5 for patients with mechanical heart valves.CALCIUM, [id number] 21:36:00 Test Item Value Reference Range Interpretation Comments CALCIUM IONIZED (BEAKER) (test 1.10 mmol/L 1.12-1.27 L code = 698) PH, BLOOD (BEAKER) (test code = 7.54 1810) BLOOD GAS, [id number] 21:36:00 Test Item Value Reference Range Interpretation [...] (BEAKER) (test code = 1819) 40.0 POCT-GLUCOSE [id number] 18:58:00 Test Item Value Reference Range Interpretation Comments POC-GLUCOSE METER 84 mg/dL 70-110 : TESTED A T [facility] 6720 (BEAKER) (test code = [place], 1538) [address]: Automation Engineering Technician/Techni won ID = [id number] for Mirna Tanner (contract), Tania lowery CBC W/PLT COUNT & AUTO [id number] 18:08:00 Test Item Value Reference Range Interpretation [...] (BEAKER) (test code = 2801) OXYGEN SATURATION, [id number] 17:48:00 Test Item Value Reference Range Interpretation Comments O2 SATURATION (MEASURED) (BEAKER) 82.4 % (test code = 1455) CBC W/PLT COUNT & AUTO [id number] 17:46:00 Test Item Value Reference Range Interpretation [...] (BEAKER) (test code = 2801) Comprehensive metabolic [id number] 16:31:00 Test Item Value Reference Range Interpretation Comments Protein, Total (test 5.2 See_Comment L [Autom ated code = 2885-2) message] The system which generated this result transmit ari reference range : 6.0 - 8.3 gm/dL . The reference range was not u sed to interpret th is result as normal/abnormal . Albumin (test code = 2.6 g/dL 3.5-5 L 94052-6) Alkaline Phosphatase 89 U/L 40-150 (test code = 6768-6) Total Bilirubin (test 0.8 mg/dL 0.2-1.2 code = 1974-2) Sodium (test code = 139 meq/L 430-813 8466-2) Potassium (test code 4.1 meq/L 3.5-5.1 = 2823-3) Chloride (test code = 105 meq/L 98-107 2074-0) CO2 (test code = 26 meq/L 22-29 2027-9) BUN (test code = 20 mg/dL 12-28 3094-0) Creatinine (test code 1.88 mg/dL 0.57-1.25 H = 2160-0) Glucose (test code = 113 mg/dL 70-105 H 2345-7) Calcium (test code = 8.2 mg/dL 8.4-10.2 L 93319-1) AST (test code = 772 U/L 5-34 H 1920-8) ALT (test code = 533 U/L 6-55 H 1742-6) EGFR (test code = 48 mL/min/1.[place] [address]-3) NOT ACCURATE CREATININE CLEARANCE IN PREDICTING GLOMERULAR FILTRATION RATE . ESTIMATED GFR I S NOT APPLICABLE FOR DIALYSIS PATIEN CARLEY (test code = CARLEY) Automation Engineering Technician ID - JESUS Lab Interpretation Abnormal (test code = 93224-8) [facility] [id number] 16:31:00 Test Item Value Reference Range Interpretation Comments Protein, Total (test 5.2 See_Comment L [Autom ated code = 2885-2) message] The system which generated this result transmit ari reference range : 6.0 - 8.3 gm/dL . The reference range was not u sed to interpret th is result as normal/abnormal . Albumin (test code = 2.6 g/dL 3.5-5 L 64231-9) Alkaline Phosphatase 89 U/L 40-150 (test code = 6768-6) Total Bilirubin (test 0.8 mg/dL 0.2-1.2 code = 1974-2) Sodium (test code = 139 meq/L 036-426 9110-2) Potassium (test code 4.1 meq/L 3.5-5.1 = 2823-3) Chloride (test code = 105 meq/L 98-107 2075-0) CO2 (test code = 26 meq/L 2028-02) BUN (test code = 20 mg/dL 12-28 3094-0) Creatinine (test code 1.88 mg/dL 0.57-1.25 H = 2160-0) Glucose (test code = 113 mg/dL 70-105 H 2345-7) Calcium (test code = 8.2 mg/dL 8.4-10.2 L 20048-4) AST (test code = 772 U/L 5-34 H 1920-8) ALT (test code = 533 U/L 6-55 H 1742-6) EGFR (test code = 48 mL/min/1.73 [place] [address]-2) NOT ACCURATE CREATININE CLEARANCE IN PREDICTING GLOMERULAR FILTRATION RATE . ESTIMATED GFR I S NOT APPLICABLE FOR DIALYSIS PATIEN TS. HOWE (test code = CARLEY) Automation Engineering Technician ID - JUN Lab Interpretation Abnormal (test code = 91759-5) [facility] [id number] 16:31:00 Test Item Value Reference Range Interpretation Comments Protein, Total (test 5.2 See_Comment L [Autom ated code = 2885-2) message] The system which generated this result transmit ari reference range : 6.0 - 8.3 gm/dL . The reference range was not u sed to interpret th is result as normal/abnormal . Albumin (test code = 2.6 g/dL 3.5-5 L 45247-9) Alkaline Phosphatase 89 U/L 40-150 (test code = 6768-6) Total Bilirubin (test 0.8 mg/dL 0.2-1.2 code = 1974-2) Sodium (test code = 139 meq/L 251-628 6684-2) Potassium (test code 4.1 meq/L 3.5-5.1 = 2823-3) Chloride (test code = 105 meq/L 98-107 2075-0) CO2 (test code = 26 meq/L 22-29 2027-9) BUN (test code = 20 mg/dL 7- 3094-0) Creatinine (test code 1.88 mg/dL 0.57-1.25 H = 2160-0) Glucose (test code = 113 mg/dL 70-105 H 2345-7) Calcium (test code = 8.2 mg/dL 8.4-10.2 L 03502-1) AST (test code = 772 U/L 5-34 H 1920-8) ALT (test code = 533 U/L 6-55 H 1742-6) EGFR (test code = 48 mL/min/1.[place] [address]-3) NOT ACCURATE CREATININE CLEARANCE IN PREDICTING GLOMERULAR FILTRATION RATE . ESTIMATED GFR I S NOT APPLICABLE FOR DIALYSIS PATIEN TS. CARLEY (test code = CARLEY) Automation Engineering Technician ID - JESUS Lab Interpretation Abnormal (test code = 88173-1) [facility] [id number] 16:31:00 Test Item Value Reference Range Interpretation [...] S NOT APPLICABLE FOR DIALYSIS PATIEN TS. Automation Engineering Technician ID - [id number] 16:31:00 Test Item Value Reference Range Interpretation Comments MAGNESIUM (BEAKER) (test code = 2.3 mg/dL 1.6-2.6 627) Automation Engineering Technician ID - [id number] 16:31:00 Test Item Value Reference Range Interpretation Comments PHOSPHORUS (BEAKER) (test code = 4.2 mg/dL 2.3-4.7 604) Automation Engineering Technician ID - JESUSLACTIC ACID, [id number] 16:27:00 Test Item Value Reference Range Interpretation Comments LACTATE BLOOD ARTERIAL (2) 2.0 mmol/L 0.5-2.2 (BEAKER) (test code = 2874) Automation Engineering Technician ID - JENAE, CHEST, 1 VIEW, NON [id number] 16:17:00Reason for exam:->post opShould this be performed at the bedside?->Yes [facility] 1975 Sex: [...] Ferrell Verified Date/Time: 01/23/2021 16:17:46 Reading Location: [address] Reading Room [id number] 16:15:00 Test Item Value Reference Range Interpretation Comments FIBRINOGEN LEVEL (BEAKER) (test 274 mg/dl 225-434 code = 658) [id number] 16:15:00 Test Item Value Reference Range Interpretation Comments PARTIAL THROMBOPLASTIN TIME 39.6 seconds 22.5-36.0 H (BEAKER) (test code = 760) PROTHROMBIN [id number] 16:14:00 Test Item Value Reference Range Interpretation Comments PROTIME (BEAKER) 19.0 seconds 11.9-14.2 H (test code = 759) INR (BEAKER) (test 1.62 See_Comment [Automat ed message] code = 370) The system RupeeTimes generated this result transmitted ref erence range: <=5.90. The reference range was not used to int erpret this result as normal/abnormal . RECOMMENDED COUMADIN/WARFARIN INR THERAPY RANGESSTANDARD DOSE: 2.0 - 3.0 Includes: PROPHYLAXIS forvenous thrombosis, systemic embolization; TREATMENT for venous thrombosis and/or pulmonary embolus.HIGH RISK: Target INR is 2.5-3.5 for patients with mechanical heart valves.BLOOD GAS, [id number] 16:01:00 Test Item Value Reference Range Interpretation [...] (BEAKER) (test code = 1819) 60.0 POTASSIUM-STAT [id number] 16:01:00 Test Item Value Reference Range Interpretation Comments POTASSIUM (BEAKER) (test code = 3.9 meq/L 3.6-5.5 379) GLUCOSE-STAT [id number] 16:01:00 Test Item Value Reference Range Interpretation Comments GLUCOSE RANDOM (BEAKER) (test code 117 mg/dL 70-110 H = 652) HGB/HCT (H&H) - STAT [id number] 16:01:00 Test Item Value Reference Range Interpretation Comments HEMOGLOBIN (BEAKER) (test code = 7.6 GM/DL 13.0-16.8 L 410) HEMATOCRIT (BEAKER) (test code = 22.0 % 40.0-50.0 L 411) SODIUM NA-STAT [id number] 16:00:00 Test Item Value Reference Range Interpretation Comments SODIUM (BEAKER) (test code = 381) 136 meq/L 136-145 [id number] 14:05:00 Test Item Value Reference Range Interpretation Comments FIBRINOGEN LEVEL (BEAKER) (test 265 mg/dl 225-434 code = 658) [id number] 14:05:00 Test Item Value Reference Range Interpretation Comments PARTIAL THROMBOPLASTIN TIME 51.7 seconds 22.5-36.0 H (BEAKER) (test code = 760) PROTHROMBIN [id number] 14:04:00 Test Item Value Reference Range Interpretation Comments PROTIME (BEAKER) 19.9 seconds 11.9-14.2 H (test code = 759) INR (BEAKER) (test 1.72 See_Comment [Automat ed message] code = 370) The system [employer] generated this result transmitted ref erence range: <=5.90. The reference range was not used to int erpret this result as normal/abnormal . RECOMMENDED COUMADIN/WARFARIN INR THERAPY RANGESSTANDARD DOSE: 2.0 - 3.0 Includes: PROPHYLAXIS forvenous thrombosis, systemic embolization; TREATMENT for venous thrombosis and/or pulmonary embolus.HIGH RISK: Target INR is 2.5-3.5 for patients with mechanical heart valves.Platelet [id number] 14:01:00 Test Item Value Reference Range Interpretation Comments Platelets (test code 113 See_Comment L [Autom ated = 777-3) message] The system which generated this result transmit ari reference range : 150 - 450 K/CU MM. The reference range was not u sed to interpret th is result as normal/abnormal . CARLEY (test code = CARLEY) Automation Engineering Technician ID - [id number] ID - [id number] Lab Interpretation Abnormal (test code = 84583-1) [facility] [id number] 14:01:00 Test Item Value Reference Range Interpretation Comments Platelets (test code 113 See_Comment L [Autom ated = 777-3) message] The system which generated this result transmit ari reference range : 150 - 450 K/CU MM. The reference range was not u sed to interpret th is result as normal/abnormal . CARLEY (test code = CARLEY) Automation Engineering Technician ID - [id number] ID - [id number] Lab Interpretation Abnormal (test code = 47789-0) [facility] [id number] 14:01:00 Test Item Value Reference Range Interpretation Comments Platelets (test code 113 See_Comment L [Autom ated = 777-3) message] The system which generated this result transmit ari reference range : 150 - 450 K/CU MM. The reference range was not u sed to interpret th is result as normal/abnormal . CARLEY (test code = CARLEY) Automation Engineering Technician ID - [id number] ID - [id number] Lab Interpretation Abnormal (test code = 04741-4) [facility] [id number] 14:01:00 Test Item Value Reference Range Interpretation Comments PLATELET COUNT (BEAKER) (test 113 K/CU MM 150-450 L code = 756) Automation Engineering Technician ID - [id number] ID - [id number] NA-STAT [id number] 13:50:00 Test Item Value Reference Range Interpretation Comments SODIUM (BEAKER) (test code = 381) 136 meq/L 136-145 POTASSIUM-STAT [id number] 13:50:00 Test Item Value Reference Range Interpretation Comments POTASSIUM (BEAKER) (test code = 4.4 meq/L 3.6-5.5 379) CALCIUM, [id number] 13:50:00 Test Item Value Reference Range Interpretation Comments CALCIUM IONIZED (BEAKER) (test 1.13 mmol/L 1.12-1.27 code = 698) PH, BLOOD (BEAKER) (test code = 7.43 1810) BLOOD GAS, [id number] 13:50:00 Test Item Value Reference Range Interpretation [...] (BEAKER) (test code = 1819) 50.0 GLUCOSE-STAT [id number] 13:50:00 Test Item Value Reference Range Interpretation Comments GLUCOSE RANDOM (BEAKER) (test code 111 mg/dL 70-110 H = 652) HGB/HCT (H&H) - STAT [id number] 13:50:00 Test Item Value Reference Range Interpretation Comments HEMOGLOBIN (BEAKER) (test code = 8.8 GM/DL 13.0-16.8 L 410) HEMATOCRIT (BEAKER) (test code = 26.0 % 40.0-50.0 L 411) ANG, TUNNELED CATHETER [id number] 11:20:00Reason for Central Line/PICC?->Need for hemodialysis accessReason for exam:->TDC [facility] : 1975 Sex: MFINAL REPORT Tunneled dialysis catheter insertion. History: Renal failure. Modality: Sonography and fluoroscopy. Sedation: none Skip Tender: Williams Garrett M.D. Theology Professor: Vannesa Owen MD. Approach: Right internal jugular [...] needle into the right atrium. A 4 Russian micropuncture sheath was placed and a 0.035 wire was advanced into the IVC. A subcutaneous tunnel was created in the right anterior chest wall by blunt dissection. A 19 cm tip to cuff 15.5 Russian Duraflow 2 catheter was brought through the [...] Verified Date/Time: 01/23/2021 11:20:38 IR Tunneled Catheter [id number] 11:20:00Interface, External Ris In - 01/23/2021 11:22 AM CDTFINAL REPORT Tunneled dialysis catheter insertion. History: Renal failure. Modality: Sonography and fluoroscopy. Sedation: none Skip Tender: Williams Garrett M.D. Theology Professor: Vannesa Owen MD. Approach: Right internal jugular [...] needle into the right atrium. A 4 Russian micropuncture sheath was placed and a 0.035 wire was advanced into the IVC. A subcutaneous tunnel was created in the right anterior chest wall by blunt dissection. A 19 cm tip to cuff 15.5 Russian Duraflow 2 catheter was brought through the [...] Williams Garrett MDReport Verified Date/Time: 01/23/2021 11:20:38 [facility] [id number] 11:20:00Interface, External Ris In - 01/23/2021 11:22 AM CDTFINAL REPORT Tunneled dialysis catheter insertion. History: Renal failure. Modality: Sonography and fluoroscopy. Sedation: none Skip Tender: Williams Garrett M.D. Theology Professor: Vannesa Owen MD. Approach: Right internal jugular [...] needle into the right atrium. A 4 Russian micropuncture sheath was placed and a 0.035 wire was advanced into the IVC. A subcutaneous tunnel was created in the right anterior chest wall by blunt dissection. A 19 cm tip to cuff 15.5 Russian Duraflow 2 cat heter was brought through [...] Williams Garrett MDReport Verified Date/Time: 01/23/2021 11:20:38 [facility] [id number] 11:20:00Interface, External Ris In - 01/23/2021 11:22 AM CDTFINAL REPORT Tunneled dialysis catheter insertion. History: Renal failure. Modality: Sonography and fluoroscopy. Sedation: none Skip Tender: Williams Garrett M.D. Theology Professor: Vannesa Owen MD. Approach: Right internal jugular [...] needle into the right atrium. A 4 Russian micropuncture sheath was placed and a 0.035 wire was advanced into the IVC. A subcutaneous tunnel was created in the right anterior chest wall by blunt dissection. A 19 cm tip to cuff 15.5 Russian Duraflow 2 cat heter was brought through [...] Williams Garrett MDReport Verified Date/Time: 01/23/2021 11:20:38 [facility] HospitalManual [id number] 10:57:00 Test Item Value Reference Range Interpretation [...] Poikilocytes (test code = 2+ moderate 966) Austin Cells (test code = 3+ many 474) Platelet Conc (test code Decreased = 3438) CARLEY (test code = CARLEY) Automation Engineering Technician ID - [id number] ID - Sun Menendez comments: Slide comments: Lab Interpretation (test Abnormal code = 86577-3) [facility] [id number] 10:57:00 Test Item Value Reference Range Interpretation [...] = 3438) CARLEY (test code = CARLEY) Automation Engineering Technician ID - [id number] ID - Sun Menendez comments: Slide comments: Lab Interpretation (test Abnormal code = 41726-0) [facility] [id number] 10:57:00 Test Item Value Reference Range Interpretation [...] = 3438) CARLEY (test code = CARLEY) Automation Engineering Technician ID - [id number] ID - Sun Shon comments: Slide comments: Lab Interpretation (test Abnormal code = 82716-3) [facility](CELLAVISION MANUAL DIFF)2021-01-23 10:57:00 Test Item Value Reference [...] CONCENTRATION Decreased (CELLAVISION)(BEAKER) (test code = 3438) Automation Engineering Technician ID - [id number] ID - Sun Shon comments: Slide comments:MAGNESIUM 2021-01-23 10:10:00 Test Item Value Reference Range Interpretation Comments MAGNESIUM (BEAKER) 2.2 mg/dL 1.6-2.6 Specimen slightly (test code = 627) hemolyzed Automation Engineering Technician ID - [id number] 10:10:00 Test Item Value Reference Range Interpretation Comments PHOSPHORUS (BEAKER) 3.5 mg/dL 2.3-4.7 Specimen slightly (test code = 604) hemolyzed Automation Engineering Technician ID - JANPOCT-GLUCOSE [id number] 10:01:00 Test Item Value Reference Range Interpretation Comments POC-GLUCOSE METER 108 mg/dL 70-110 : TESTED A T [facility] 6720 (BEAKER) (test code = [address]ORM [address], 1538) [id number]: Automation Engineering Technician/Techni won ID = [id number] for Fo ntroquet, Levy CBC (HEMOGRAM ONLY)2021-01-23 09:50:00 Test Item [...] H (test code = 413) BASIC METABOLIC [id number] 04:53:00 Test Item Value Reference Range Interpretation [...] S NOT APPLICABLE FOR DIALYSIS PATIEN TS. Automation Engineering Technician ID - [id number] 04:53:00 Test Item Value Reference Range Interpretation Comments MAGNESIUM (BEAKER) (test code = 2.2 mg/dL 1.6-2.6 627) Automation Engineering Technician ID - [id number] 04:53:00 Test Item Value Reference Range Interpretation Comments PHOSPHORUS (BEAKER) (test code = 2.9 mg/dL 2.3-4.7 604) Automation Engineering Technician ID - DBPROTHROMBIN TIME/[id number] 04:43:00 Test Item Value Reference Range Interpretation Comments PROTIME (BEAKER) 24.0 seconds 11.9-14.2 H (test code = 759) INR (BEAKER) (test 2.17 See_Comment [Automat ed message] code = 370) The system [employer] generated this result transmitted ref erence range: <=5.90. The reference range was not used to int erpret this result as normal/abnormal . RECOMMENDED COUMADIN/WARFARIN INR THERAPY RANGESSTANDARD DOSE: 2.0 - 3.0 Includes: PROPHYLAXIS forvenous thrombosis, systemic embolization; TREATMENT for venous thrombosis and/or pulmonary embolus.HIGH RISK: Target INR is 2.5-3.5 for patients with mechanical heart valves.[id number] 04:43:00 Test Item Value Reference Range Interpretation Comments PARTIAL THROMBOPLASTIN TIME 46.2 seconds 22.5-36.0 H (BEAKER) (test code = 760) CBC W/PLT COUNT & AUTO [id number] 04:38:00 Test Item Value Reference Range Interpretation [...] 0-0 (test code = 413) LACTIC ACID, [id number] 04:27:00 Test Item Value Reference Range Interpretation Comments LACTATE BLOOD 2.2 mmol/L 0.5-2.2 Specimen sligh tly ARTERIAL (2) (BEAKER) hemoly zed (test code = 2874) Automation Engineering Technician ID - DBBLOOD GAS, [id number] 04:14:00 Test Item Value Reference Range Interpretation [...] (test code = 1819) 60.0 OXYGEN SATURATION, [id number] 04:14:00 Test Item Value Reference Range Interpretation Comments O2 SATURATION (MEASURED) (BEAKER) 67.7 % (test code = 1455) CALCIUM, [id number] 04:14:00 Test Item Value Reference Range Interpretation Comments CALCIUM IONIZED (BEAKER) (test 1.18 mmol/L 1.12-1.27 code = 698) PH, BLOOD (BEAKER) (test code = 7.50 1810) RAD, CHEST, 1 VIEW, NON [id number] 03:56:00Reason for exam:->chest tubes, s/p cardiac surgeryShould this be performed at the bedside?->Yes [facility] 1975 Sex: MFINAL REPORT RAD, CHEST, 1 VIEW, NON DEPT INDICATION: chest tubes, s/p cardiac surgery COMPARISON: Prior day's exam FINDINGS: Portable frontal view of the chest. IMPRESSION: Support Lines: Stable. Lungs and pleura: Unchanged airspace and pleural opacities. No pneumothorax.Heart and mediastinum: Stable contours. Stable surgical changes.Additional findings: None. Signed: Sae Pinon Verified Date/Time: 01/23/2021 03:56:28 [id number] 01:12:00 Test Item Value Reference Range Interpretation Comments MAGNESIUM (BEAKER) 1.6 mg/dL 1.6-2.6 Specimen slightly (test code = 627) hemolyzed Automation Engineering Technician ID - DBBASIC METABOLIC [id number] 01:12:00 Test Item Value Reference Range Interpretation [...] S NOT APPLICABLE FOR DIALYSIS PATIEN TS. Automation Engineering Technician ID - DBLACTIC ACID, [id number] 01:08:00 Test Item Value Reference Range Interpretation Comments LACTATE BLOOD 2.9 mmol/L 0.5-2.2 H Specimen sligh tly ARTERIAL (2) (BEAKER) hemoly zed (test code = 2874) Automation Engineering Technician ID - DBCALCIUM, [id number] 00:35:00 Test Item Value Reference Range Interpretation Comments CALCIUM IONIZED (BEAKER) (test 1.17 mmol/L 1.12-1.27 code = 698) PH, BLOOD (BEAKER) (test code = 7.50 1810) BLOOD GAS, [id number] 00:35:00 Test Item Value Reference Range Interpretation [...] FIO2 (BEAKER) (test code = 1819) 60.0 [id number] 21:21:00 Test Item Value Reference Range Interpretation Comments PARTIAL THROMBOPLASTIN TIME 54.6 seconds 22.5-36.0 H (BEAKER) (test code = 760) PROTHROMBIN [id number] 21:20:00 Test Item Value Reference Range Interpretation Comments PROTIME (BEAKER) 28.7 seconds 11.9-14.2 H (test code = 759) INR (BEAKER) (test 2.73 See_Comment [Automat ed message] code = 370) The system [employer] generated this result transmitted ref erence range: <=5.90. The reference range was not used to int erpret this result as normal/abnormal . RECOMMENDED COUMADIN/WARFARIN INR THERAPY RANGESSTANDARD DOSE: 2.0 - 3.0 Includes: PROPHYLAXIS forvenous thrombosis, systemic embolization; TREATMENT for venous thrombosis and/or pulmonary embolus.HIGH RISK: Target INR is 2.5-3.5 for patients with mechanical heart valves.[id number] 21:20:00 Test Item Value Reference Range Interpretation Comments FIBRINOGEN LEVEL (BEAKER) (test 228 mg/dl 225-434 code = 658) [id number] 21:02:00 Test Item Value Reference Range Interpretation Comments PHOSPHORUS (BEAKER) (test code = 4.2 mg/dL 2.3-4.7 604) Automation Engineering Technician ID - DBLACTIC ACID, [id number] 21:00:00 Test Item Value Reference Range Interpretation Comments LACTATE BLOOD ARTERIAL (2) 3.6 mmol/L 0.5-2.2 H (BEAKER) (test code = 2874) Automation Engineering Technician ID - DBCBC (HEMOGRAM ONLY)2021-01-22 20:50:00 Test [...] H (test code = 413) BLOOD GAS, [id number] 20:37:00 Test Item Value Reference Range Interpretation [...] (test code = 1819) 60.0 OXYGEN SATURATION, [id number] 20:37:00 Test Item Value Reference Range Interpretation Comments O2 SATURATION (MEASURED) (BEAKER) 45.7 % (test code = 1455) HGB/HCT (H&H) - STAT [id number] 20:37:00 Test Item Value Reference Range Interpretation Comments HEMOGLOBIN (BEAKER) (test code = 8.7 GM/DL 13.0-16.8 L 410) HEMATOCRIT (BEAKER) (test code = 26.0 % 40.0-50.0 L 411) GLUCOSE-STAT [id number] 20:36:00 Test Item Value Reference Range Interpretation Comments GLUCOSE RANDOM (BEAKER) (test code 110 mg/dL 70-110 = 652) SODIUM NA-STAT [id number] 20:36:00 Test Item Value Reference Range Interpretation Comments SODIUM (BEAKER) (test code = 381) 136 meq/L 136-145 POTASSIUM-STAT [id number] 20:36:00 Test Item Value Reference Range Interpretation Comments POTASSIUM (BEAKER) (test code = 4.2 meq/L 3.6-5.5 379) CT, CHEST, WITH [id number] 20:16:00Unlisted Reason for Exam - Click Yes and Enter Reason Below->No [facility] 1975 Sex: [...] Sae Pinon Verified Date/Time: 01/22/2021 20:16:28 CT, [id number] 20:16:00Unlisted Reason for Exam - Click Yes and Enter Reason Below->YesUnlisted Reason for Exam->ruleout bleedWill this procedure require oral contrast?->No [facility] 1975 Sex: MFINAL REPORT [...] Signed: Sae Pinon Verified Date/Time: 01/22/2021 20:16:28 CT chest with IV [id number] 20:16:00Interface, External Ris In - 01/22/2021 8:19 [...] Signed: Sae Pinon Verified Date/Time: 01/22/2021 20:16:28 [facility] [id number] 20:16:00Interface, External Ris In - 01/22/2021 8:19 [...] Signed: Sae Pinon Verified Date/Time: 01/22/2021 20:16:28 [facility] [id number] 20:16:00Interface, External Ris In - 01/22/2021 8:19 [...] Signed: Sae Pinon Verified Date/Time: 01/22/2021 20:16:28 [facility]vis with IV [id number] 20:16:00Interface, External Ris In - 01/22/2021 8:19 [...] Signed: Sae Pinon Verified Date/Time: 01/22/2021 20:16:28 [facility] [id number] 20:16:00Interface, External Ris In - 01/22/2021 8:19 [...] Signed: Sae Pinon Verified Date/Time: 01/22/2021 20:16:28 [facility]pelvis with IV [id number] 20:16:00Interface, External Ris In - 01/22/2021 8:19 [...] Signed: Sae Pinon Verified Date/Time: 01/22/2021 20:16:28 [facility] HospitalBLOOD GAS, [id number] 18:28:00 Test Item Value Reference Range Interpretation [...] 1819) 60.0 RAD, CHEST, 1 VIEW, NON [id number] 18:14:00Reason for exam:->chest tubeShould this be performed at the bedside?->Yes [facility] : 1975 Sex: MFINAL REPORT Chest one view. Clinical history: chest tube Comparison: 01/22/2021 Discussion: A frontal chest is provided. Cardiomediastinal contours are unchanged. Lines and tubes are in stable position. Left pleural- parenchymal opacities are unchanged. No pneumothorax. Signed: Sharla Lopez Verified Date/Time: 01/22/2021 18:14:34 Reading Location: [address] Ortho Consult Reading Room POCT-GLUCOSE [id number] 16:43:00 Test Item Value Reference Range Interpretation Comments POC-GLUCOSE METER 88 mg/dL 70-110 : TESTED A T [facility] 6720 (BEAKER) (test code = [address]ORM [address]ULT[address] NE, 1538) 65638: Automation Engineering Technician/Techni won ID = [id number] for Font Levy allen 2D Echo W/Doppler(CW/PW/Color)2021-01-22 15:11:52Ejection [facility]ractionSCLEARW[facility] ECHO HEART[facility] MKCKESSON CPACSInterface, External Ris In - 01/22/2021 3:12 PM C DTTransthoracic Echocardiography Report (TTE) Demographics Patient Name CROW KAUR Date ofStudy 01/22/2021 RYAN SR. Gender Male Visit Number [id number] Race Unknown Room Number C823 Number Date of 1975 Referring Jes Ramos NP Physician Age 45 year(s) Floorleader Jeffrey Montes [facility] Supervisory Clerk Olvin Butler Interpreting Physician YUNIER Marks Procedure [...] TR Velocity: 2.68 m/s TR Gradient: 28.64 mmHgMission Bay campus2D Echo W/Doppler(CW/PW/Color)2021-01-22 15:11:52Ejection FractionSLEH ECHO HEARTLAB ANGEL CPACSInterface, External Ris In - 01/22/2021 3:12 PM CDTTransthoracic Echocardiography Report (TTE) Demographics Patient Name CROW KAUR Date ofStudy 01/22/2021 RYAN SR. Gender Male Visit Number [id number] Race Unknown Room Number C823 Number Date of 1975 Referring Jes Ramos NP Physician Age 45 year(s) Floorleader Jeffrey Montes [facility] Supervisory Clerk Olvin Butler Interpreting Physician YUNIER Marks Procedure [...] TR Velocity: 2.68 m/s TR Gradient: 28.64 mmHgMission Bay campus2D Echo W/Doppler(CW/PW/Color)2021-01-22 15:11:52Ejection FractionSLEH ECHO HEARTLAB MKCKESSON CPACSInterface, External Ris In - 01/22/2021 3:12 PM CDTTransthoracic Echocardiography Report (TTE) Demographics Patient Name CROW KAUR Date ofStudy 01/22/2021 RYAN SR. Gender Male Visit Number [id number] Race Unknown Room Number C823 Number Date of 1975 Referring Jes Ramos NP Physician Age 45 year(s) Floorleader Jeffrey Montes [facility] Supervisory Clerk Olvin Butler Interpreting Physician YUNIER Marks Procedure [...] TR Velocity: 2.68 m/s TR Gradient: 28.64 mmHgMission Bay campusBLOOD GAS, [id number] 15:01:00 Test Item Value Reference Range Interpretation [...] 1819) 60.0 CBC W/PLT COUNT & AUTO [id number] 14:49:00 Test Item Value Reference Range Interpretation [...] CONCENTRATION Decreased (CELLAVISION)(BEAKER) (test code = 3438) Automation Engineering Technician ID - [id number] ID - Dariela OverholtUser comments: Slide comments: LACTIC ACID, [id number] 14:46:00 Test Item Value Reference Range Interpretation Comments LACTATE BLOOD ARTERIAL (2) (BEAKER) > mmol/L 0.5-2.2 HH (test code = 4344) Automation Engineering Technician ID - VALDEZ MBLOOD GAS, [id number] 14:45:00 Test Item Value Reference Range Interpretation [...] (BEAKER) (test code = 1819) 100.0 POCT-GLUCOSE [id number] 14:33:00 Test Item Value Reference Range Interpretation Comments POC-GLUCOSE METER 139 mg/dL 70-110 H : TESTED A T [facility] 6720 (BEAKER) (test code = NORM SHULTZ NE, 1538) 36517: Automation Engineering Technician/Techni won ID = [id number] for Ob iJoyce BASIC METABOLIC [id number] 14:30:00 Test Item Value Reference Range Interpretation [...] S NOT APPLICABLE FOR DIALYSIS PATIEN TS. Automation Engineering Technician ID - VALDEZ [id number] 14:30:00 Test Item Value Reference Range Interpretation Comments MAGNESIUM (BEAKER) (test code = 2.0 mg/dL 1.6-2.6 627) Automation Engineering Technician ID - VALDEZ [id number] 14:30:00 Test Item Value Reference Range Interpretation Comments PHOSPHORUS (BEAKER) (test code = 5.0 mg/dL 2.3-4.7 H 604) Automation Engineering Technician ID - VALDEZ MCALCIUM, [id number] 14:23:00 Test Item Value Reference Range Interpretation Comments CALCIUM IONIZED (BEAKER) (test 1.18 mmol/L 1.12-1.27 code = 698) PH, BLOOD (BEAKER) (test code = 7.36 1810) GLUCOSE-STAT [id number] 14:23:00 Test Item Value Reference Range Interpretation Comments GLUCOSE RANDOM (BEAKER) (test code = 58 mg/dL 70-110 L 652) HGB/HCT (H&H) - STAT [id number] 14:23:00 Test Item Value Reference Range Interpretation Comments HEMOGLOBIN (BEAKER) (test code = 7.0 GM/DL 13.0-16.8 L 410) HEMATOCRIT (BEAKER) (test code = 21.0 % 40.0-50.0 L 411) SODIUM NA-STAT [id number] 14:23:00 Test Item Value Reference Range Interpretation Comments SODIUM (BEAKER) (test code = 381) 138 meq/L 136-145 POTASSIUM-STAT [id number] 14:23:00 Test Item Value Reference Range Interpretation Comments POTASSIUM (BEAKER) (test code = 3.8 meq/L 3.6-5.5 379) OXYGEN SATURATION, [id number] 14:22:00 Test Item Value Reference Range Interpretation Comments O2 SATURATION (MEASURED) (BEAKER) 24.2 % (test code = 1455) [id number] 14:19:00 Test Item Value Reference Range Interpretation Comments PARTIAL THROMBOPLASTIN TIME 59.4 seconds 22.5-36.0 H (BEAKER) (test code = 760) PROTHROMBIN [id number] 14:18:00 Test Item Value Reference Range Interpretation Comments PROTIME (BEAKER) 28.1 seconds 11.9-14.2 H (test code = 759) INR (BEAKER) (test 2.66 See_Comment [Automat ed message] code = 370) The system [employer] generated this result transmitted ref erence range: <=5.90. The reference range was not used to int erpret this result as normal/abnormal . RECOMMENDED COUMADIN/WARFARIN INR THERAPY RANGESSTANDARD DOSE: 2.0 - 3.0 Includes: PROPHYLAXIS forvenous thrombosis, systemic embolization; TREATMENT for venous thrombosis and/or pulmonary embolus.HIGH RISK: Target INR is 2.5-3.5 for patients with mechanical heart valves.[id number] 14:18:00 Test Item Value Reference Range Interpretation Comments FIBRINOGEN LEVEL (BEAKER) (test 237 mg/dl 225-434 code = 658) POCT-GLUCOSE [id number] 14:08:00 Test Item Value Reference Range Interpretation Comments POC-GLUCOSE METER 57 mg/dL 70-110 L : TESTED A T [facility] 6720 (BEAKER) (test code = [facility], 1538) 78675: Automation Engineering Technician/Techni won ID = [id number] for Atwo od (V), Anurag POCT-GLUCOSE [id number] 13:35:00 Test Item Value Reference Range Interpretation Comments POC-GLUCOSE METER 66 mg/dL 70-110 L : TESTED A T [facility] 6720 (BEAKER) (test code = [facility], 1538) 07709: Automation Engineering Technician/Techni won ID = [id number] for Atwo od (V), Anurag BLOOD GAS, [id number] 12:16:00 Test Item Value Reference Range Interpretation [...] (test code = 1819) 60.0 LACTIC ACID, [id number] 11:59:00 Test Item Value Reference Range Interpretation Comments LACTATE BLOOD ARTERIAL (2) (BEAKER) > mmol/L 0.5-2.2 HH (test code = 2874) Automation Engineering Technician ID - VALDEZ MPOCT-GLUCOSE [id number] 11:57:00 Test Item Value Reference Range Interpretation Comments POC-GLUCOSE METER 84 mg/dL 70-110 : TESTED A T [facility] 6720 (BEAKER) (test code = [facility], 1538) 88408: Automation Engineering Technician/Techni won ID = [id number] for VINOD, RONAL POCT-GLUCOSE [id number] 11:31:00 Test Item Value Reference Range Interpretation Comments POC-GLUCOSE METER 222 mg/dL 70-110 H : TESTED A T [facility] 6720 (BEAKER) (test code = [facility], 1538) 09977: Automation Engineering Technician/Techni won ID = [id number] for Curtis white (Anurag Arevalo POCT-GLUCOSE [id number] 11:29:00 Test Item Value Reference Range Interpretation Comments POC-GLUCOSE METER < mg/dL 70-110 LL : TESTED A T [facility] 6720 (BEAKER) (test code = [facility], 1538) 42492: Automation Engineering Technician/Techni won ID = [id number] for RONAL BROCK POCT-GLUCOSE [id number] 11:17:00 Test Item Value Reference Range Interpretation Comments POC-GLUCOSE METER 290 mg/dL 70-110 H : TESTED A T [facility] 6720 (BEAKER) (test code = [facility], 1538) 82890: Automation Engineering Technician/Techni won ID = [id number] for Mica Wynn POCT-GLUCOSE [id number] 11:14:00 Test Item Value Reference Range Interpretation Comments POC-GLUCOSE METER 45 mg/dL 70-110 L : TESTED A T [facility] 6720 (BEAKER) (test code = [facility], 1538) 17429: Automation Engineering Technician/Techni won ID = [id number] for Margareth noemíMica ECG 12 [id number] 10:49:43Interface, External Ris In 01/22/2021 10:49 AM CDTVentricular Rate 117 BPMAtrial Rate 141 BPMQRS Duration 104 msQ-T Interval 368 msQTC Calculation(Bazett) 513 msR Interior -10 degreesT Interior 130 degreesAtrial fibrillation with rapid ventricular responseST elevation consider inferior injury or acute infarctAbnormal ECGWhen compared with ECG of 16-JAN-2021 09:23,ST less depressed in Lateral leadsConfirmedby MD MOUNIKA, DELMAR ([id number]) on 01/22/2021 10:49:36 [facility] [id number] 10:49:43 Interface, External Ris In 01/22/2021 10:49 AM CDTVentricular Rate 117 BPMAtrial Rate 141 BPMQRS Duration 104 msQ-T Interval 368 msQTC Calculation(Bazett) 513 msR Interior -10 degreesT Interior 130 degreesAtrial fibrillation with rapid ventricular responseST elevation consider inferior injury or acute infarctAbnormal ECGWhen compared with ECG of 16-JAN-2021 09:23,ST less depressed in Lateral leadsConfirmedevelyn RIBERA MD, RUPA ([id number]) on 01/22/2021 10:49:36 [facility] [id number] 10:49:43 Interface, External Ris In - 01/22/2021 10:49 AM CDTVentricular Rate 117 BPMAtrial Rate 141 BPMQRS Duration 104 msQ-T Interval 368 msQTC Calculation(Bazett) 513 msR Interior -10 degreesT Interior 130 degreesAtrial fibrillation with rapid ventricular responseST elevation consider inferior injury or acute infarctAbnormal ECGWhen compared with ECG of 16-JAN-2021 09:23,ST less depressed in Lateral leadsConfirbrendon RIBERA MD, RUPA ([id number]) on 01/22/2021 10:49:36 [facility] [id number] 10:46:00 Test Item Value Reference Range Interpretation Comments GLUCOSE RANDOM (BEAKER) (test code = 14 mg/dL 70-110 LL 652) SODIUM NA-STAT [id number] 10:43:00 Test Item Value Reference Range Interpretation Comments SODIUM (BEAKER) (test code = 381) 139 meq/L 136-145 POTASSIUM-STAT [id number] 10:43:00 Test Item Value Reference Range Interpretation Comments POTASSIUM (BEAKER) (test code = 4.4 meq/L 3.6-5.5 379) OXYGEN SATURATION, [id number] 10:43:00 Test Item Value Reference Range Interpretation Comments O2 SATURATION (MEASURED) (BEAKER) 39.1 % (test code = 1455) HGB/HCT (H&H) - STAT [id number] 10:43:00 Test Item Value Reference Range Interpretation Comments HEMOGLOBIN (BEAKER) (test code = 7.4 GM/DL 13.0-16.8 L 410) HEMATOCRIT (BEAKER) (test code = 22.0 % 40.0-50.0 L 411) [id number] 09:58:00 Test Item Value Reference Range Interpretation Comments PARTIAL THROMBOPLASTIN TIME 100.2 seconds 22.5-36.0 H (BEAKER) (test code = 760) RAD, CHEST, 1 VIEW, NON [id number] 09:56:00Reason for exam:->left chest tube placementShould this be performed at the bedside?->Yes [facility] 1975 Sex: MFINAL REPORT [...] MDReport Verified Date/Time: 01/22/2021 09:56:49 Reading Location: [address] Body Reading Room LACTIC ACID, [id number] 09:38:00 Test Item Value Reference Range Interpretation Comments LACTATE BLOOD ARTERIAL (2) 11.8 mmol/L 0.5-2.2 HH (BEAKER) (test code = 2874) Automation Engineering Technician ID - VALDEZ [id number] 08:42:00 Test Item Value Reference Range Interpretation Comments PARTIAL THROMBOPLASTIN TIME > seconds 22.5-36.0 HH (BEAKER) (test code = 760) BLOOD GAS, [id number] 08:41:00 Test Item Value Reference Range Interpretation [...] = 1819) 100.0 HGB/HCT (H&H) - STAT [id number] 08:31:00 Test Item Value Reference Range Interpretation Comments HEMOGLOBIN (BEAKER) (test code = 6.0 GM/DL 13.0-16.8 LL 410) HEMATOCRIT (BEAKER) (test code = 18.0 % 40.0-50.0 L 411) GLUCOSE-STAT [id number] 08:21:00 Test Item Value Reference Range Interpretation Comments GLUCOSE RANDOM (BEAKER) (test code = 75 mg/dL 70-110 652) SODIUM NA-STAT [id number] 08:21:00 Test Item Value Reference Range Interpretation Comments SODIUM (BEAKER) (test code = 381) 136 meq/L 136-145 POTASSIUM-STAT [id number] 08:21:00 Test Item Value Reference Range Interpretation Comments POTASSIUM (BEAKER) (test code = 4.0 meq/L 3.6-5.5 379) OXYGEN SATURATION, [id number] 08:21:00 Test Item Value Reference Range Interpretation Comments O2 SATURATION (MEASURED) (BEAKER) 38.7 % (test code = 1455) RAD, CHEST, 1 VIEW, NON [id number] 07:21:00Reason for exam:->s/p code, intubationShould this be performed at the bedside?->Yes [facility] 1975 Sex: [...] mediastinum: Stable contours.Additional findings: None. Signed: Re Cantueport Verified Date/Time: 01/22/2021 07:21:40 Reading Location: [address] Neuro Reading Room HEMOGLOBIN AND [id number] 07:19:00 Test Item Value Reference Range Interpretation Comments HEMOGLOBIN (BEAKER) (test code = 5.4 GM/DL 13.7-17.5 LL 410) HEMATOCRIT (BEAKER) (test code = 18.5 % 40.1-51.0 L 411) Automation Engineering Technician ID - [id number] ID - [id number] ID - [id number]-type Natriuretic Factor (BNP)2021-01-22 07:17:00 Test Item Value Reference Range Interpretation Comments BNP (test code = 69035-6) 2620 pg/mL 0-100 H CARLEY (test code = CARLEY) Automation Engineering Technician ID - VALDEZ M Lab Interpretation (test Abnormal code = 31848-4) [facility]21-01-22 07:17:00 Test Item Value Reference Range Interpretation Comments BNP (test code = 89946-8) 2620 pg/mL 0-100 H CARLEY (test code = CARLEY) Automation Engineering Technician ID - VALDEZ M Lab Interpretation (test Abnormal code = 69455-9) [facility] (BNP[facility]2021-01-22 07:17:00 Test Item Value Reference Range Interpretation Comments BNP (test code = 72646-2) 2620 pg/mL 0-100 H CARLEY (test code = CARLEY) Automation Engineering Technician ID - VALDEZ M Lab Interpretation (test Abnormal code = 07537-1) [facility] NATRIURET[facility] FACTOR (BNP)2021-01-22 07:17:00 Test Item Value Reference Range Interpretation Comments B-TYPE NATRIURETIC PEPTIDE 2620 pg/mL 0-100 H (BEAKER) (test code = 700) Automation Engineering Technician ID - VALDEZ [id number] 07:16:00 Test Item Value Reference Range Interpretation Comments PARTIAL THROMBOPLASTIN TIME > seconds 22.5-36.0 HH (BEAKER) (test code = 760) BASIC METABOLIC [id number] 07:11:00 Test Item Value Reference Range Interpretation [...] S NOT APPLICABLE FOR DIALYSIS PATIEN TS. Automation Engineering Technician ID - VALDEZ [id number] 07:10:00 Test Item Value Reference Range Interpretation Comments MAGNESIUM (BEAKER) (test code = 2.1 mg/dL 1.6-2.6 627) Automation Engineering Technician ID - VALDEZ [id number] 07:10:00 Test Item Value Reference Range Interpretation Comments PHOSPHORUS (BEAKER) (test code = 7.0 mg/dL 2.3-4.7 H 604) Automation Engineering Technician ID - VALDEZ MHEPATIC FUNCTION [id number] 07:10:00 Test Item Value Reference Range Interpretation [...] code = 261 U/L 6-55 H 347) Automation Engineering Technician ID - VALDEZ MLACTIC ACID, [id number] 07:09:00 Test Item Value Reference Range Interpretation Comments LACTATE BLOOD ARTERIAL (2) 12.6 mmol/L 0.5-2.2 HH (BEAKER) (test code = 2874) Automation Engineering Technician ID - VALDEZ MPROTHROMBIN [id number] 07:02:00 Test Item Value Reference Range Interpretation Comments PROTIME (BEAKER) 22.6 seconds 11.9-14.2 H (test code = 759) INR (BEAKER) (test 2.01 See_Comment [Automat ed message] code = 370) The system [employer] generated this result transmitted ref erence range: <=5.90. The reference range was not used to int erpret this result as normal/abnormal . RECOMMENDED COUMADIN/WARFARIN INR THERAPY RANGESSTANDARD DOSE: 2.0 - 3.0 Includes: PROPHYLAXIS forvenous thrombosis, systemic embolization; TREATMENT for venous thrombosis and/or pulmonary embolus.HIGH RISK: Target INR is 2.5-3.5 for patients with mechanical heart valves.[id number] 07:02:00 Test Item Value Reference Range Interpretation Comments FIBRINOGEN LEVEL (BEAKER) (test 306 mg/dl 225-434 code = 658) CALCIUM, [id number] 06:48:00 Test Item Value Reference Range Interpretation Comments CALCIUM IONIZED (BEAKER) (test 1.34 mmol/L 1.12-1.27 H code = 698) PH, BLOOD (BEAKER) (test code = 7.30 1810) BLOOD GAS, [id number] 06:47:00 Test Item Value Reference Range Interpretation [...] (test code = 1819) 100.0 OXYGEN SATURATION, [id number] 06:47:00 Test Item Value Reference Range Interpretation Comments O2 SATURATION (MEASURED) (BEAKER) 48.0 % (test code = 1455) CBC W/PLT COUNT & AUTO [id number] 03:53:00 Test Item Value Reference Range Interpretation [...] PERCENT (BEAKER) (test code = 2801) PROTHROMBIN [id number] 03:47:00 Test Item Value Reference Range Interpretation Comments PROTIME (BEAKER) 16.4 seconds 11.9-14.2 H (test code = 759) INR (BEAKER) (test 1.34 See_Comment [Automat ed message] code = 370) The system [employer] generated this result transmitted ref erence range: <=5.90. The reference range was not used to int erpret this result as normal/abnormal . RECOMMENDED COUMADIN/WARFARIN INR THERAPY RANGESSTANDARD DOSE: 2.0 - 3.0 Includes: PROPHYLAXIS forvenous thrombosis, systemic embolization; TREATMENT for venous thrombosis and/or pulmonary embolus.HIGH RISK: Target INR is 2.5-3.5 for patients with mechanical heart valves.LACTIC ACID, [id number] 03:35:00 Test Item Value Reference Range Interpretation Comments LACTATE BLOOD ARTERIAL (2) 8.3 mmol/L 0.5-2.2 HH (BEAKER) (test code = 2874) Automation Engineering Technician ID - VALDEZ [id number] 03:06:00 Test Item Value Reference Range Interpretation Comments MAGNESIUM (BEAKER) 2.2 mg/dL 1.6-2.6 Specimen slightly (test code = 627) hemolyzed Automation Engineering Technician ID - VALDEZ [id number] 03:06:00 Test Item Value Reference Range Interpretation Comments PHOSPHORUS (BEAKER) 4.7 mg/dL 2.3-4.7 Specimen slightly (test code = 604) hemolyzed Automation Engineering Technician ID - VALDEZ MBASIC METABOLIC [id number] 03:06:00 Test Item Value Reference Range Interpretation [...] S NOT APPLICABLE FOR DIALYSIS PATIEN TS. Automation Engineering Technician ID - VALDEZ MCALCIUM, [id number] 02:59:00 Test Item Value Reference Range Interpretation Comments CALCIUM IONIZED (BEAKER) (test 1.21 mmol/L 1.12-1.27 code = 698) PH, BLOOD (BEAKER) (test code = 7.37 1810) BLOOD GAS, [id number] 02:59:00 Test Item Value Reference Range Interpretation [...] (test code = 1819) 36.0 OXYGEN SATURATION, [id number] 02:58:00 Test Item Value Reference Range Interpretation Comments O2 SATURATION (MEASURED) (BEAKER) 30.2 % (test code = 1455) [id number] 02:09:00 Test Item Value Reference Range Interpretation Comments PARTIAL THROMBOPLASTIN TIME 64.2 seconds 22.5-36.0 H (BEAKER) (test code = 760) RAD, CHEST, 1 VIEW, NON [id number] 01:42:00Reason for exam:->chest tubes, s/p cardiac surgeryShould this be performed at the bedside?->Yes [facility] 1975 Sex: MFINAL REPORT EXAM/TECHNIQUE: Single view frontal radiograph of the est. INDICATION: Chest tubes, status post cardiac surgery. COMPARISON: Chest radiography from 01/21/2021. FINDINGS: Devices/Objects: Right internal jugular central venous catheter terminates in the upper right atrium. Status post aortic valve placement. Feeding tube course below the diaphragm terminates below iesgt-no-axua. Right chest tube is present. Lungs: Substantial increase in left pulmonary opacity and pleural effusion. Similar right basilar predominant pulmonary opacities. Heart/Mediastinum:Unchanged cardiomegaly. No interstitial thickening. Osseous: No acute osseous process. No suspiciousosseous lesion. Upper abdomen: Unremarkable. Impression: Substantial increase in left pleural effusion and pulmonary opacity. Signed: Philipp Booker MDReport Verified Date/Time: 01/22/2021 01:42:05 [id number] 23:19:00 Test Item Value Reference Range Interpretation Comments PARTIAL THROMBOPLASTIN TIME 113.7 seconds 22.5-36.0 H (BEAKER) (test code = 760) HEMOGLOBIN AND [id number] 22:54:00 Test Item Value Reference Range Interpretation Comments HEMOGLOBIN (BEAKER) (test code = 8.1 GM/DL 13.7-17.5 L 410) HEMATOCRIT (BEAKER) (test code = 26.2 % 40.1-51.0 L 411) Automation Engineering Technician ID - [id number] METABOLIC [id number] 22:17:00 Test Item Value Reference Range Interpretation [...] S NOT APPLICABLE FOR DIALYSIS PATIEN TS. Automation Engineering Technician ID - [id number] 22:17:00 Test Item Value Reference Range Interpretation Comments MAGNESIUM (BEAKER) (test code = 2.0 mg/dL 1.6-2.6 627) Automation Engineering Technician ID - [id number] 22:17:00 Test Item Value Reference Range Interpretation Comments PHOSPHORUS (BEAKER) (test code = 2.8 mg/dL 2.3-4.7 604) Automation Engineering Technician ID - DBPOCT-GLUCOSE [id number] 21:52:00 Test Item Value Reference Range Interpretation Comments POC-GLUCOSE METER 133 mg/dL 70-110 H : [facility] (BEAKER) (test code = [place], 1538) [id number]: Automation Engineering Technician/Techni won ID = [id number] for VINOD CHAUDHARY Blood Culture - Routine (Left Venipuncture)2021-01-21 20:00:00 Test Item Value Reference Range Interpretation Comments Result (test code = No growth in 5 days 6463-4) [facility] 2021-01-21 20:00:00 Test Item Value Reference Range Interpretation Comments Result (test code = No growth in 5 days 6463-4) [facility] 2021-01-21 20:00:00 Test Item Value Reference Range Interpretation Comments Result (test code = No growth in 5 days 6463-4) [facility] [id number] 20:00:00 Test Item Value Reference Range Interpretation Comments CULTURE (BEAKER) (test No growth in 5 days code = 1095) BLOOD [id number] 20:00:00 Test Item Value Reference Range Interpretation Comments CULTURE (BEAKER) (test No growth in 5 days code = 1095) BLOOD GAS, [id number] 19:08:00 Test Item Value Reference Range Interpretation [...] (BEAKER) (test code = 1819) 36.0 POCT-GLUCOSE [id number] 18:34:00 Test Item Value Reference Range Interpretation Comments POC-GLUCOSE METER 110 mg/dL 70-110 : TESTED A T [facility] 6720 (BEAKER) (test code = NORM [place] [facility], 1538) 94176: Automation Engineering Technician/Techni won ID = [id number] for RONAL PEREZ [id number] 17:37:00 Test Item Value Reference Range Interpretation [...] is 2.5-3.5 for patients with mechanical heart valves.[id number] 12:20:00 Test Item Value Reference Range Interpretation [...] 2.5-3.5 for patients with mechanical heart valves.POCT-GLUCOSE [id number] 12:19:00 Test Item Value Reference Range Interpretation Comments POC-GLUCOSE METER 79 mg/dL 70-110 : TESTED A T [facility] 6720 (BEAKER) (test code = NORM Tam [facility], 1538) 67773: Automation Engineering Technician/Techni won ID = [id number] for RONAL BROCK BLOOD GAS, [id number] 12:04:00 Test Item Value Reference Range Interpretation [...] FIO2 (BEAKER) (test code = 1819) 40.0 [id number] 10:02:00 Test Item Value Reference Range Interpretation Comments MAGNESIUM (BEAKER) 2.3 mg/dL 1.6-2.6 Specimen moderately (test code = 627) hemolyzed Automation Engineering Technician ID - [id number] 10:02:00 Test Item Value Reference Range Interpretation Comments PHOSPHORUS (BEAKER) 3.0 mg/dL 2.3-4.7 Specimen moderately (test code = 604) hemolyzed Automation Engineering Technician ID - [id number] 10:02:00 Test Item Value Reference Range Interpretation Comments POTASSIUM (BEAKER) 4.3 meq/L 3.5-5.1 Specimen moderately (test code = 379) hemolyzed Automation Engineering Technician ID - BSPOCT-GLUCOSE [id number] 08:50:00 Test Item Value Reference Range Interpretation Comments POC-GLUCOSE METER 123 mg/dL 70-110 H : [facility] (BEAKER) (test code = [place], 1538) 866[address]: Automation Engineering Technician/Techni won ID = [id number] for RONAL PEREZ pH, [id number] 08:34:00 Test Item Value Reference Range Interpretation Comments pH, Arterial (test code = 2744-1) 7.44 7.35-7.45 Lab Interpretation (test code = Normal 62971-8) [facility], [id number] 08:34:00 Test Item Value Reference Range Interpretation Comments pH, Arterial (test code = 2744-1) 7.44 7.35-7.45 Lab Interpretation (test code = Normal 16812-4) [facility], [id number] 08:34:00 Test Item Value Reference Range Interpretation Comments pH, Arterial (test code = 2744-1) 7.44 7.35-7.45 Lab Interpretation (test code = Normal 77469-7) [facility], [id number] 08:34:00 Test Item Value Reference Range Interpretation Comments PH ARTERIAL (BEAKER) (test code = 383) 7.44 7.35-7.45 RAD, CHEST, 1 VIEW, NON [id number] 07:58:00Reason for exam:->chest tubes, s/p cardiac surgeryShould this be performed at the bedside?->Yes [facility] 1975 Sex: MFINAL [...] MDReport Verified Date/Time: 01/21/2021 07:58:34 Reading Location: [address] Body Reading Room BASIC METABOLIC PANEL [...] S NOT APPLICABLE FOR DIALYSIS PATIEN TS. Automation Engineering Technician ID - VALDEZ [id number] 05:44:00 Test Item Value Reference Range Interpretation Comments MAGNESIUM (BEAKER) (test code = 2.2 mg/dL 1.6-2.6 627) Automation Engineering Technician ID - VALDEZ MHEPATIC FUNCTION [id number] 05:44:00 Test Item Value Reference Range Interpretation [...] code = 476 U/L 6-55 H 347) Automation Engineering Technician ID - VALDEZ [id number] 03:57:00 Test Item Value Reference Range Interpretation Comments PARTIAL THROMBOPLASTIN TIME 86.2 seconds 22.5-36.0 H (BEAKER) (test code = 760) PROTHROMBIN [id number] 03:56:00 Test Item Value Reference Range Interpretation Comments PROTIME (BEAKER) 14.6 seconds 11.9-14.2 H (test code = 759) INR (BEAKER) (test 1.16 See_Comment [Automat ed message] code = 370) The system [employer] generated this result transmitted ref erence range: [...] (BEAKER) (test code = 2801) BLOOD GAS, [id number] 03:43:00 Test Item Value Reference Range Interpretation [...] (BEAKER) (test code = 1819) 40.0 CALCIUM, [id number] 03:42:00 Test Item Value Reference Range Interpretation Comments CALCIUM IONIZED (BEAKER) (test 1.22 mmol/L 1.12-1.27 code = 698) PH, BLOOD (BEAKER) (test code = 7.43 1810) POCT-GLUCOSE [id number] 00:09:00 Test Item Value Reference Range Interpretation Comments POC-GLUCOSE METER 103 mg/dL 70-110 : [facility] (BEAKER) (test code = [place], 1538) 13875: Automation Engineering Technician/Techni won ID = [id number] for MARITZA LAURAVINOD LONDONO [id number] 22:06:00 Test Item Value Reference Range Interpretation Comments MAGNESIUM (BEAKER) 2.0 mg/dL 1.6-2.6 Specimen slightly (test code = 627) hemolyzed Automation Engineering Technician ID - [id number] 22:06:00 Test Item Value Reference Range Interpretation Comments PHOSPHORUS (BEAKER) 3.4 mg/dL 2.3-4.7 Specimen slightly (test code = 604) hemolyzed Automation Engineering Technician ID - [id number] 22:06:00 Test Item Value Reference Range Interpretation Comments POTASSIUM (BEAKER) 3.9 meq/L 3.5-5.1 Specimen slightly (test code = 379) hemolyzed Automation Engineering Technician ID - BSPH, [id number] 21:48:00 Test Item Value Reference Range Interpretation Comments PH ARTERIAL (BEAKER) (test code = 383) 7.44 7.35-7.45 [id number] 18:35:00 Test Item Value Reference Range Interpretation Comments POTASSIUM (BEAKER) 3.8 meq/L 3.5-5.1 Specimen slightly (test code = 379) hemolyzed Automation Engineering Technician ID - ADMINPOCT-GLUCOSE [id number] 18:20:00 Test Item Value Reference Range Interpretation Comments POC-GLUCOSE METER 92 mg/dL 70-110 : TESTED A T [facility] 6720 (BEAKER) (test code = [facility], 1538) 77422: Automation Engineering Technician/Techni won ID = [id number] for RONAL BROCK [id number] 13:41:00 Test Item Value Reference Range Interpretation Comments POTASSIUM (BEAKER) 4.1 meq/L 3.5-5.1 Specimen slightly (test code = 379) hemolyzed Automation Engineering Technician ID - ADMINPOCT-GLUCOSE [id number] 11:57:00 Test Item Value Reference Range Interpretation Comments POC-GLUCOSE METER 91 mg/dL 70-110 : TESTED A T [facility] 6720 (BEAKER) (test code = [facility], 1538) 28378: Automation Engineering Technician/Techni won ID = [id number] for RONAL BROCK [id number] 10:33:00 Test Item Value Reference Range Interpretation Comments MAGNESIUM (BEAKER) (test code = 2.3 mg/dL 1.6-2.6 627) Automation Engineering Technician ID - [id number] 10:33:00 Test Item Value Reference Range Interpretation Comments PHOSPHORUS (BEAKER) (test code = 3.2 mg/dL 2.3-4.7 604) Automation Engineering Technician ID - [id number] 09:38:00 Test Item Value Reference Range Interpretation Comments PARTIAL THROMBOPLASTIN TIME 54.0 seconds 22.5-36.0 H (BEAKER) (test code = 760) PH, [id number] 09:17:00 Test Item Value Reference Range Interpretation Comments PH ARTERIAL (BEAKER) (test code = 383) 7.43 7.35-7.45 HEPATIC FUNCTION [id number] 07:42:00 Test Item Value Reference Range Interpretation [...] code = 659 U/L 6-55 H 347) Automation Engineering Technician ID - ADMINBASIC METABOLIC [id number] 04:51:00 Test Item Value Reference Range Interpretation [...] S NOT APPLICABLE FOR DIALYSIS PATIEN TS. Automation Engineering Technician ID - [id number] 04:49:00 Test Item Value Reference Range Interpretation Comments MAGNESIUM (BEAKER) (test code = 2.2 mg/dL 1.6-2.6 627) Automation Engineering Technician ID - ADMINPROTHROMBIN TIME/[id number] 04:19:00 Test Item Value Reference Range Interpretation Comments PROTIME (BEAKER) 16.2 seconds 11.9-14.2 H (test code = 759) INR (BEAKER) (test 1.33 See_Comment [Automat ed message] code = 370) The system RupeeTimes generated this result transmitted ref erence range: [...] (BEAKER) (test code = 2801) BLOOD GAS, [id number] 03:56:00 Test Item Value Reference Range Interpretation [...] (BEAKER) (test code = 1819) 40.0 CALCIUM, [id number] 03:56:00 Test Item Value Reference Range Interpretation Comments CALCIUM IONIZED (BEAKER) (test 1.17 mmol/L 1.12-1.27 code = 698) PH, BLOOD (BEAKER) (test code = 7.44 1810) RAD, CHEST, 1 VIEW, NON [id number] 03:04:00Reason for exam:->chest tubes, s/p cardiac surgeryShould this be performed at the bedside?->Yes [facility] 1975 Sex: MFINAL REPORT EXAM/TECHNIQUE: Single view frontal radiograph of the est. INDICATION: Chest tubes, status post cardiac surgery. COMPARISON: Chest radiography from 01/19/2021. FINDINGS: Devices/Objects: Feeding tube course below the diaphragm and terminates below gaeiv-ii-lfhv. Endotracheal tube is unchanged. Left internal jugular central venous catheter is unchanged. Es ophageal temperature probe is present. Bilateral chest tubes are present. Lungs: Increased bilateralbasilar pulmonary opacities. No visible pneumothorax. Heart/Mediastinum: Unchanged cardiomegaly. Osseous: No acute osseous process. No suspicious osseous lesion. Upper abdomen: Unremarkable. Impression: Increasing bilateral basilar pulmonary opacities. Signed: Philipp Booker MDReport Verified Date/Time: 01/20/2021 03:04:06 [id number] 02:28:00 Test Item Value Reference Range Interpretation Comments PARTIAL THROMBOPLASTIN TIME 44.7 seconds 22.5-36.0 H (BEAKER) (test code = 760) [id number] 01:31:00 Test Item Value Reference Range Interpretation Comments POTASSIUM (BEAKER) 4.2 meq/L 3.5-5.1 Specimen slightly (test code = 379) hemolyzed Automation Engineering Technician ID - DBPOCT-GLUCOSE [id number] 00:31:00 Test Item Value Reference Range Interpretation Comments POC-GLUCOSE METER 107 mg/dL 70-110 : TESTED A T [facility] 6720 (BEAKER) (test code = [place], 1538) [address]: Automation Engineering Technician/Techni won ID = [id number] for Sadia Black HEMOGLOBIN AND [id number] 00:28:00 Test Item Value Reference Range Interpretation Comments HEMOGLOBIN (BEAKER) (test code = 7.5 GM/DL 13.7-17.5 L 410) HEMATOCRIT (BEAKER) (test code = 24.1 % 40.1-51.0 L 411) Automation Engineering Technician ID - [id number] 21:20:00 Test Item Value Reference Range Interpretation Comments MAGNESIUM (BEAKER) (test code = 2.0 mg/dL 1.6-2.6 627) Automation Engineering Technician ID - [id number] 21:20:00 Test Item Value Reference Range Interpretation Comments PHOSPHORUS (BEAKER) (test code = 3.6 mg/dL 2.3-4.7 604) Automation Engineering Technician ID - [id number] 21:20:00 Test Item Value Reference Range Interpretation Comments POTASSIUM (BEAKER) (test code = 3.7 meq/L 3.5-5.1 379) Automation Engineering Technician ID - [id number] 20:52:00 Test Item Value Reference Range Interpretation Comments PARTIAL THROMBOPLASTIN TIME 41.1 seconds 22.5-36.0 H (BEAKER) (test code = 760) PH, [id number] 20:36:00 Test Item Value Reference Range Interpretation Comments PH ARTERIAL (BEAKER) (test code = 383) 7.41 7.35-7.45 Vancomycin level, [id number] 17:55:00 Test Item Value Reference Range Interpretation Comments Vancomycin Tr (test code = 13.4 ug/mL 03-29 4092-3) CARLEY (test code = CARLEY) Automation Engineering Technician ID - ADMIN Lab Interpretation (test Normal code = 80946-0) [facility] [id number] 17:55:00 Test Item Value Reference Range Interpretation Comments Vancomycin Tr (test code = 13.4 ug/mL 10-20 4092-3) CARLEY (test code = CARLEY) Automation Engineering Technician ID - ADMIN Lab Interpretation (test Normal code = 39078-6) [facility], [id number] 17:55:00 Test Item Value Reference Range Interpretation Comments Vancomycin Tr (test code = 13.4 ug/mL 10-20 4092-3) CARLEY (test code = CARLEY) Automation Engineering Technician ID - ADMIN Lab Interpretation (test Normal code = 63469-9) [facility] campusVANCOMYCIN LEVEL, [id number] 17:55:00 Test Item Value Reference Range Interpretation Comments VANCOMYCIN TROUGH (BEAKER) (test 13.4 ug/mL 10.0-20.0 code = 522) Automation Engineering Technician ID - [id number] 17:39:00 Test Item Value Reference Range Interpretation Comments POTASSIUM (BEAKER) (test code = 3.7 meq/L 3.5-5.1 379) Automation Engineering Technician ID - DBCBC W/PLT COUNT & AUTO [id number] 17:29:00 Test Item Value Reference Range Interpretation [...] H PERCENT (BEAKER) (test code = 2801) [id number] 11:58:00 Test Item Value Reference Range Interpretation Comments POTASSIUM (BEAKER) (test code = 4.0 meq/L 3.5-5.1 379) Automation Engineering Technician ID - ADMINPOCT-GLUCOSE [id number] 11:51:00 Test Item Value Reference Range Interpretation Comments POC-GLUCOSE METER 72 mg/dL 70-110 : TESTED A T [facility] 6720 (BEAKER) (test code = [place], 1538) [address]: Automation Engineering Technician/Techni won ID = [id number] for FIDELIA MENJIVAR [id number] 11:47:00 Test Item Value Reference Range Interpretation [...] 0-0 H (BEAKER) (test code = 413) [id number] 10:06:00 Test Item Value Reference Range Interpretation Comments PHOSPHORUS (BEAKER) (test code = 3.8 mg/dL 2.3-4.7 604) Automation Engineering Technician ID - ADMINBLOOD GAS, [id number] 09:13:00 Test Item Value Reference Range Interpretation [...] 1819) 40.0 CBC W/PLT COUNT & AUTO [id number] 07:00:00 Test Item Value Reference Range Interpretation [...] CONCENTRATION Adequate (CELLAVISION)(BEAKER) (test code = 3438) Automation Engineering Technician ID - Dariela OverholtUser comments: Slide comments:HEMOGLOBIN AND [id number] 06:48:00 Test Item Value Reference Range Interpretation Comments HEMOGLOBIN (BEAKER) (test code = 7.2 GM/DL 13.7-17.5 L 410) HEMATOCRIT (BEAKER) (test code = 23.6 % 40.1-51.0 L 411) Automation Engineering Technician ID - 6000POCT-GLUCOSE [id number] 06:35:00 Test Item Value Reference Range Interpretation Comments POC-GLUCOSE METER 92 mg/dL 70-110 : TESTED A T [facility] 6720 (BEAKER) (test code = [place], 1538) [address]: Automation Engineering Technician/Techni won ID = [id number] for MESERET ETT, SEPTEMBER CALCIUM, [id number] 05:04:00 Test Item Value Reference Range Interpretation Comments CALCIUM IONIZED (BEAKER) (test 1.13 mmol/L 1.12-1.27 code = 698) PH, BLOOD (BEAKER) (test code = 7.41 1810) BLOOD GAS, [id number] 05:01:00 Test Item Value Reference Range Interpretation [...] (test code = 1819) 40.0 COMPREHENSIVE METABOLIC [id number] 04:56:00 Test Item Value Reference Range Interpretation [...] S NOT APPLICABLE FOR DIALYSIS PATIEN TS. Automation Engineering Technician ID - [id number] 04:56:00 Test Item Value Reference Range Interpretation Comments MAGNESIUM (BEAKER) (test code = 2.1 mg/dL 1.6-2.6 627) Automation Engineering Technician ID - ADMINHEPATIC FUNCTION [id number] 04:56:00 Test Item Value Reference Range Interpretation [...] code = 995 U/L 6-55 H 347) Automation Engineering Technician ID - [id number] 04:28:00 Test Item Value Reference Range Interpretation Comments PARTIAL THROMBOPLASTIN TIME 39.7 seconds 22.5-36.0 H (BEAKER) (test code = 760) PROTHROMBIN [id number] 04:27:00 Test Item Value Reference Range Interpretation Comments PROTIME (TAMARA) 18.5 seconds 11.9-14.2 H (test code = 759) INR (TAMARA) (test 1.57 See_Comment [Automat ed message] code = 370) The system RupeeTimes generated this result transmitted ref erence range: <=5.90. The reference range was not used to int erpret this result as normal/abnormal . RECOMMENDED COUMADIN/WARFARIN INR THERAPY RANGESSTANDARD DOSE: 2.0 - 3.0 Includes: PROPHYLAXIS forvenous thrombosis, systemic embolization; TREATMENT for venous thrombosis and/or pulmonary embolus.HIGH RISK: Target INR is 2.5-3.5 for patients with mechanical heart valves.RAD, CHEST, 1 VIEW, NON [id number] 01:51:00Reason for exam:->chest tubes, s/p cardiac surgeryShould this be performed at the bedside?->Yes [facility] 1975 Sex: MFINAL REPORT [...] gastric antrum versus proximal duodenum. Signed: Philipp Bookerort Verified Date/Time: 01/19/2021 01:51:42 RAD, ABDOMEN/KUB, 1 VIEW [id number] 01:51:00Reason for exam:->Verify corpak placementShould this be performed at the bedside?->Yes [facility] : 1975 Sex: MFINAL REPORT [...] Booker MDRjonathanort Verified Date/Time: 01/19/2021 01:51:42 POCT-GLUCOSE [id number] 01:49:00 Test Item Value Reference Range Interpretation Comments POC-GLUCOSE METER 121 mg/dL 70-110 H : TESTED A T [facility] 6720 (BEAKER) (test code = NORM Ten[place] [facility], 1538) [address]: Automation Engineering Technician/Techni won ID = [id number] for DO KUSeptember POCT-GLUCOSE [id number] 00:34:00 Test Item Value Reference Range Interpretation Comments POC-GLUCOSE METER 68 mg/dL 70-110 L : Will Rep eat Test: (BEAKER) (test code = Notifi ed RN/MD: TESTED 1538) AT [facility] [address] [facility], 770 30: Automation Engineering Technician/Techni won ID = [id number] for MESERET DE SOUZASeptember [id number] 20:31:00 Test Item Value Reference Range Interpretation Comments MAGNESIUM (BEAKER) 1.8 mg/dL 1.6-2.6 Specimen moderately (test code = 627) hemolyzed Automation Engineering Technician ID - [id number] 20:31:00 Test Item Value Reference Range Interpretation Comments PHOSPHORUS (BEAKER) 3.9 mg/dL 2.3-4.7 Specimen moderately (test code = 604) hemolyzed Automation Engineering Technician ID - [id number] 20:31:00 Test Item Value Reference Range Interpretation Comments POTASSIUM (BEAKER) 4.4 meq/L 3.5-5.1 Specimen moderately (test code = 379) hemolyzed Automation Engineering Technician ID - ADMINHEMOGLOBIN AND [id number] 20:15:00 Test Item Value Reference Range Interpretation Comments HEMOGLOBIN (BEAKER) (test code = 8.0 GM/DL 13.7-17.5 L 410) HEMATOCRIT (BEAKER) (test code = 25.6 % 40.1-51.0 L 411) Automation Engineering Technician ID - [id number], [id number] 20:13:00 Test Item Value Reference Range Interpretation Comments PH ARTERIAL (BEAKER) (test code = 383) 7.45 7.35-7.45 POCT-GLUCOSE [id number] 18:00:00 Test Item Value Reference Range Interpretation Comments POC-GLUCOSE METER 74 mg/dL 70-110 : TESTED A T [facility] 6720 (BEAKER) (test code = [place], 1538) [address]: Automation Engineering Technician/Techni won ID = [id number] for Ezra Gregorio [id number] 17:36:00 Test Item Value Reference Range Interpretation Comments POTASSIUM (TAMARA) 4.2 meq/L 3.5-5.1 Specimen slightly (test code = 379) hemolyzed SARS-CoV2/RT-PCR (Asymptomatic ONLY)2021-01-18 14:08:00 Test Item Value Reference Range Interpretation Comments SARS-COV2/RT-PCR Negative Not Detected, (test code = Negative, See 67077-9) external report for linked test SARS-COV-2 [facility] SADI PERFORMING LAB (test code = 61384-5) CARLEY (test code = Negative result for [...] of the Act. Fact Sheet for Healthcare Providers:https://www.[employer].mobiManage/sites/default/f carlita/product/documents/F act_Sheet_HC_Providers_L jlo_ETNQ-FkV-2.pdf Fact Sheet for Healthcare Patients:https://www.[employer]/sites/default/fi les/product/documents/Fa ct_Sheet_Patients_Lyra_S ARS-CoV-2.pdf Performing Laboratory:[facility] [place] [address] [facility] (Asymptomatic ONLY)2021-01-18 14:08:00 Test Item Value Reference Range Interpretation Comments SARS-COV2/RT-PCR Negative Not Detected, (test code = Negative, See 72190-0) external report for linked test SARS-COV-2 [facility] PERFORMING LAB (test code = 39829-9) CARLEY (test code = Negative result for [...] of the Act. Fact Sheet for Healthcare Providers:https://www.[employer]/sites/default/f carlita/product/documents/F act_Sheet_HC_Providers_L ose_NUPW-PbT-6.pdf Fact Sheet for Healthcare Patients:https://www.[employer]/sites/default/fi les/product/documents/Fa ct_Sheet_Patients_Lyra_S ARS-CoV-2.pdf Performing Laboratory:[facility]-CoV2/RT-PCR (Asymptomatic ONLY)2021-01-18 14:08:00 Test Item Value Reference Range Interpretation Comments SARS-COV2/RT-PCR Negative Not Detected, (test code = Negative, See 82139-7) external report for linked test SARS-COV-2 [facility] PERFORMING LAB (test code = 46714-6) CARLEY (test code = Negative result for [...] of the Act. Fact Sheet for Healthcare Providers:https://www.[employer]/sites/default/f carlita/product/documents/F act_Sheet_HC_Providers_L rqg_XLQJ-XrG-3.pdf Fact Sheet for Healthcare Patients:https://www.[employer]/sites/default/fi les/product/documents/Fa ct_Sheet_Patients_Lyra_S ARS-CoV-2.pdf Performing Laboratory:[facility] [place] [address] [facility]OV[facility] ([facility])2021-01-18 14:08:00 Test Item Value Reference Range Interpretation Comments SARS-COV2/RT-PCR (test Negative Not Detected, Negative, code = 0507394) See external report for linked test SARS-COV-2 PERFORMING LAB [facility] SADI (test code = 9520989) Negative result for this test determines that [...] 564(g) of the Act.Fact Sheet for Healthcare Providers:https://www.[employer]/sites/default/files/product/documents/Fact_Shee w_GC_Wusstxsps_Kbei_FLNH-MgJ-7.pdfFact Sheet for Healthcare Patients:https://www.[employer]/sites/default/files/product/ documents/Lywe_Kpsao_Aaxjtzsu_Gzln_YBJY-VoC-6.pdfPerforming Laboratory:[facility], [place] [id number] 12:57:00 Test Item Value Reference Range Interpretation Comments POTASSIUM (BEAKER) (test code = 4.0 meq/L 3.6-5.5 379) POCT-GLUCOSE [id number] 12:40:00 Test Item Value Reference Range Interpretation Comments POC-GLUCOSE METER 81 mg/dL 70-110 : TESTED A T [facility] 6720 (BEAKER) (test code = NORM Ten[place] [facility], 1538) [address]: Automation Engineering Technician/Techni won ID = [id number] for Bent on, Gladys Sputum Culture + Gram [id number] 11:19:00 Test Item Value Reference Range Interpretation Comments Gram Stain Result 1+ gram positive cocci in (test code = 1123) pairs and clusters CARLEY (test code = 4+ Normal respiratory CARLEY) mendy present [facility] Centerputum [facility] + Gram [id number] 11:19:00 Test Item Value Reference Range Interpretation Comments Gram Stain Result 1+ gram positive cocci in (test code = 1123) pairs and clusters CARLEY (test code = 4+ Normal respiratory CARLEY) mendy present [facility] Centerput[facility] + Gram [id number] 11:19:00 Test Item Value Reference Range Interpretation Comments Gram Stain Result 1+ gram positive cocci in (test code = 1123) pairs and clusters CARLEY (test code = 4+ Normal respiratory CARLEY) mendy present [facility] CenterPUTUM CULTURE + GRAM [id number] 11:19:00 Test Item Value Reference Range Interpretation Comments GRAM STAIN RESULT <1+ WBCs (BEAKER) (test code = 1123) GRAM STAIN RESULT 0-5 epithelial cells (BEAKER) (test code = 399371) GRAM STAIN RESULT <1+ gram negative rods (BEAKER) (test code = 820567) GRAM STAIN RESULT 1+ gram positive cocci (BEAKER) (test code = in pairs and clusters 934373) 4+ Normal respiratory mendy [id number] 10:15:00 Test Item Value Reference Range Interpretation Comments PHOSPHORUS (BEAKER) (test code = 4.7 mg/dL 2.3-4.7 604) [id number] 10:09:00 Test Item Value Reference Range Interpretation Comments POTASSIUM (BEAKER) (test code = 3.8 meq/L 3.5-5.1 379) [id number] 10:09:00 Test Item Value Reference Range Interpretation Comments MAGNESIUM (BEAKER) (test code = 1.9 mg/dL 1.6-2.6 627) RAD, CHEST, 1 VIEW, NON [id number] 08:45:00Reason for exam:->pigtail chest tube placementShould this be performed at the bedside?->Yes [facility] : 1975 Sex: MFINAL REPORT [...] MDReport Verified Date/Time: 01/18/2021 08:45:59 Reading Location: [facility] Radiology Reading Room [id number] 07:01:00 Test Item Value Reference Range Interpretation Comments MAGNESIUM (BEAKER) 2.1 mg/dL 1.6-2.6 Specimen slightly (test code = 627) hemolyzed COMPREHENSIVE METABOLIC [id number] 06:55:00 Test Item Value Reference Range Interpretation [...] APPLICABLE FOR DIALYSIS PATIEN TS. LACTIC ACID, [id number] 05:22:00 Test Item Value Reference Range Interpretation Comments LACTATE BLOOD ARTERIAL (2) 1.0 mmol/L 0.5-2.2 (BEAKER) (test code = 2874) HEMOGLOBIN AND [id number] 04:50:00 Test Item Value Reference Range Interpretation Comments HEMOGLOBIN (BEAKER) (test code = 8.4 GM/DL 13.7-17.5 L 410) HEMATOCRIT (BEAKER) (test code = 26.9 % 40.1-51.0 L 411) Automation Engineering Technician ID - [id number], CHEST, 1 VIEW, NON [id number] 04:47:00Reason for exam:->chest tubes, s/p cardiac surgeryShould this be performed at the bedside?->[facility] : 1975 Sex: MFINAL REPORT [...] relay them to the physician. Signed: Sharon Krishnanepting Verified Date/Time: 01/18/2021 04:47:41 BLOOD GAS, [id number] 03:37:00 Test Item Value Reference Range Interpretation [...] (BEAKER) (test code = 1819) 40.0 PROTHROMBIN [id number] 03:29:00 Test Item Value Reference Range Interpretation Comments PROTIME (BEAKER) 22.0 seconds 11.9-14.2 H (test code = 759) INR (BEAKER) (test 1.95 See_Comment [Automat ed message] code = 370) The system RupeeTimes generated this result transmitted ref erence range: <=5.90. The reference range was not used to int erpret this result as normal/abnormal . RECOMMENDED COUMADIN/WARFARIN INR THERAPY RANGESSTANDARD DOSE: 2.0 - 3.0 Includes: PROPHYLAXIS forvenous thrombosis, systemic embolization; TREATMENT for venous thrombosis and/or pulmonary embolus.HIGH RISK: Target INR is 2.5-3.5 for patients with mechanical heart valves.[id number] 03:29:00 Test Item Value Reference Range Interpretation Comments PARTIAL THROMBOPLASTIN TIME 36.3 seconds 22.5-36.0 H (BEAKER) (test code = 760) CBC W/PLT COUNT & AUTO [id number] 03:23:00 Test Item Value Reference Range Interpretation [...] PERCENT (BEAKER) (test code = 2801) POCT-GLUCOSE [id number] 01:17:00 Test Item Value Reference Range Interpretation Comments POC-GLUCOSE METER 80 mg/dL 70-110 : TESTED A T [facility] 6720 (BEAKER) (test code = [place], 1538) [address]: Automation Engineering Technician/Techni won ID = [id number] for MESERET ETSeptember [id number] 22:01:00 Test Item Value Reference Range Interpretation Comments PHOSPHORUS (BEAKER) 5.1 mg/dL 2.3-4.7 H Specimen slightly (test code = 604) hemolyzed [id number] 22:01:00 Test Item Value Reference Range Interpretation Comments MAGNESIUM (BEAKER) 1.9 mg/dL 1.6-2.6 Specimen slightly (test code = 627) hemolyzed [id number] 22:00:00 Test Item Value Reference Range Interpretation Comments POTASSIUM (BEAKER) 4.0 meq/L 3.5-5.1 Specimen slightly (test code = 379) hemolyzed PH, [id number] 20:14:00 Test Item Value Reference Range Interpretation Comments PH ARTERIAL (BEAKER) (test code = 383) 7.49 7.35-7.45 H HEMOGLOBIN AND [id number] 20:04:00 Test Item Value Reference Range Interpretation Comments HEMOGLOBIN (BEAKER) (test code = 8.1 GM/DL 13.7-17.5 L 410) HEMATOCRIT (BEAKER) (test code = 26.0 % 40.1-51.0 L 411) Automation Engineering Technician ID - [id number]-GLUCOSE [id number] 18:31:00 Test Item Value Reference Range Interpretation Comments POC-GLUCOSE METER 81 mg/dL 70-110 : TESTED A T [facility] 6720 (TAMARA) (test code = NORM [place] [place], 1538) [address]: Automation Engineering Technician/Techni won ID = [id number] for RONAL BRCOK Tissue [id number] 16:48:00 Test Item Value Reference Range Interpretation Comments Case Report (test code Surgical Pathology = 104) Report Case: [id number] Authorizing Provider: Trey Galvez, Collected: 01/11/2021 03:53 PM Ordering Location: [address] Received: 01/12/2021 08:17 AM Pathologist: Fredi Hermosillo MD Specimen: Mitral Valve, Mitral Valve (send for C/S first) DIAGNOSIS (test code = [id number] 3220) FuZzEwMzNcZnRuYmpcdWMx IHtccnRmMVxlcGljOTIwMl pkozHsICHjoJMzU4Hdfihw LAmzHR7rZC6tzZubqWMnaV VpYRPmZgMyd0yzg848yICb f8rxASPAfmvgsDl1gNmvA0 0mq0V9NasaL00hfNMpYZnr bGFpblxmczIwIEhFQVJULC BNSVRSQUwgVkFMVkUsIFZB UOYEFRCOQA1YKGvauPQoGI IXWdEFJe6EAZNVFAIZEKIJ ATcHEMVJOI6AKLMPSdSKHM 8VLahbBTEPAG7LMhYEHQHe GlJLCZKFUGQELSZCZ3JVYZ BhciBMRUFGTEVUUyBXSVRI UNWAU0YBMS2MBRXKGSGKMM DXQZBCGjoOUEIAEHYDZ8CC WGKJO6LMCuFkuSEorSdzrc FfCUprh7ExJNemEDBeEN6r tIdlLCMdGS1oQMShO8turK 2wqfq3KjWgSUNhLwF5UGEo tbG0Jwn5HIRbTIbbg7juf8 TcIDFwMTy7xQkjNyWhLZXg l8qupwRnOeKuYKCjOJLdZV BnpVLdA648l0srm4urgsCh lBO3DFYyJCX1QCcqfbDnvq I6WExjgKXwIwC2WQfdpqNa MJkhxwRjvdXeXzn2IMWxM3 26MCG6yOtjh7iyAAW4CVYf BDZaDaGkNg0hyCGmA771LV VoFWNDPEEteMc0BFTvzmSe brZozGNOf663X297c5hzAK WoewKsxIqGkegbs9lgC420 XHBhcGVydzEyMjQwXHBhcG JtwBN8XTJvAP2fhxfmJLrt DUicTUCpswL6KYDjtWYxA4 IqZPHbFA1thtxqRMA8NMdy UWVhRXY0HiKuLPFjg6Bazy p7BrWsiu1ney91XBT9l6Ro wZadYXE1JJY4BuMxBp6uzR QcUETgDK8cTtZckBJwJDWy it97jFybHKglZCL6MBZlix Hvc8Wlj8ynSqQnbcShK0qd U3CbAMHjOGYrFZDaIqRhor Dff3Ejd7KunJFucUm2g7mf AAWtGSMqzPllm4oxJPK8XE FovWGgW2ryeK6vKHUxTE3j gcmwk9bhGUlzXOyqXNSgqF G4cmI0DXYiuAGeN1BzpF9x UFFeYAjnXBUxhpc7IfLcRr 9vdGVyeTcyMFxzYmtwYWdl XHBnbmNvbnRccGduZGVjXH BsYWluXHBsYWluXGYwXGZz MjRccWxcbGFuZzEwMzNcaG ljaFxmMVxkYmNoXGYxXGxv Z4xoYuDxGkDrRim0FQBvfB VhSASlSys3PDPfrJSmSQOL jUmpqQ6eKSMbdWgigK0tmH Z2LYKzexOuxKHJxK8mTPRD uA9eEeO7PtGyUhL1GCn7RQ FccGFyfX0= COMMENT (test code = i0dizJXfFBMzgKL0IhFzSY 3359) Eye0rnu1WavNCxzXRyUAwz xSCegkBkcc61aGG9hC96JB 2dPJBrYqX5HKNtmjP5Mux3 KCKwDAXnbYFlM655e1jmq0 jehaGpdSH7aFlrMHAdIQYw YWluXGZzMjAgVGhlIGJhY3 LlwfprUMGnvqDbqM4zLPLi mxV6hADulkKyRFBhlKvkgq CihkHvMZHaOL9lepO0NEXk WF3mACVhkgjuTcc5TOC1TC ufuD7aEUilsJvfuZwwe5Qn HAjtOT7tUJJ9MBmwtdWmmk PdP06FETA5VVwjdqadHbW4 VTVwUKQwukGwp26sreQbdN Cyd4ItsX3sh7d4HNlrPEEs GZQiz5WhJ72zW5mvWIkvAK J9 CPT Code(s) (test code t3fehVSmZUBkwCV1HmPwTJ = 3357) Gkv2lfz7OvaUSfsKSmWHtn aWQzkuBiof13zIS3eQ31CL 5vBHJrDfK1BIHjpcY8Awk9 WLNaBAMxgRHbT565o0kpt2 tiqgKgyVZ4gLqgYRGlEJHw XEmaNNPiLkCzEEwrTEW7SF x5KgNuQCzkE8zpDNC5 CLINICAL HISTORY (test y4migKMbEIAnnOD4TpJeMV code = 3356) Nef9wie5TtkZDxcQRvRQme qYRxpbTftb12eXO4gD83GG 4xHYYaKyF0ZXNjvvO8Xit6 VLTsQHKzdSOsP882a1huw5 ubbbRjzCW9hMefLTOjSBJm SRjzZYEvKxYiTP9oo8Fntg JglBynUK7uMV7gtITpoRJ1 QYb2QQVowWCxpE== SPECIMEN SOURCE (test b2fjoUTlWJNfiBV6GiHhMK code = 3377) Jgo4nmd8QzuUFliLZiWOda kSOfbbVwaf73cAL0gL20FR 6cFBKoNkO3WODjlbB7Jty9 VRPtTBWgaRDdL699l5umo3 ealpWmdUV3hZveROYlATNm YGtqVGSwFvDcLMv1mlTfRI ZhbHZlIFxwYXJ9 GROSS DESCRIPTION (test m7pwmAKbKLIqiEApHfJaLI code = 3366) WjWBDfe9tmAGRsePLlBlQi MzNcZnRuYmpcdWMxXGRlZm Kpz1uri162qGQhq8efKOEO aitxdTu2e2psKVDxToR9bX QkHUblW4byrxXxnKWhHSAi QDz0eP66DLLbyW7wuBSyGT ewkvZtCoK0TRjoHOKxUcR8 MKTriOJqVWXfR8hhZZXjLX bsOTVzDMlaeRZrEGO7lCvk y9F3oCWrrARnoKwtOoDzNz KxFJJMv8QpYLy1wBcuX7Xl RJOsShJ9lEOyRZBtJHvwTJ YcCMRicoG2rI79HEntxzX9 jARzk3Lrm01md654mX0ckZ YyDAT8HTDcJPVrhVZbCLKq MFB4QDDixTGyE2t1IrNseD BuF0Z0WiHbpHKtO0R3ThWo rGYnA4F1AaAeoPFnPBVieD GoDd7elZAhgCOdjn7kbv32 SMZ7x3EuvBpeKHJ5GYW9Mi ZuSs2bjRHnSSMpTMRoxGZu KKLrXL6beTNdKMLyrT9yem xjXHBnYnJkcmhlYWRccGdi vsFkOu2chGxzEJV8XGawR6 zjiD8yBlG7EQfoR7dlkV7w CRj2SNfphFJ1QXEvwI1kYW 7ducjvp5fyRySvSH6yckdt a2buQvSwLX9jjxo2s3ryPl YpXH5duajly1kqIcIyIIzl WPYqpewaYBNom3EfrlunEH Tsp3TjJ5HtuNguU27nuUvj J90aFUZnfKtgrA2ikSivmD 5cZjBcZnMyNFxwYXJkXHBs YWluXGYxXGZzMjBcbGFuZz EwMzNcaGljaFxmMVxkYmNo DHZoSGbeK2vhVtIxEjUpPR BSZWNlaXZlZCBmcmVzaCBs YWJlbGVkIHdpdGggdGhlIH UdyTiocrVvpnCjLO4xBASx WOMuU7GqTUIsK95wKOZhmV 1iZXIgbnVtYmVyIGFuZCAi yVv5evVvGJDpyKHjZlIrrz TbASLlRFC1GTDwDZS9NZXu UKUrvFGkU7suPWwwpKNpk9 YgdGFuLXBpbmsgdmFsdnVs INCrtZyqs6FgRIsagBufHV D8USHyYSDuO5Xxf2JqnXA6 ppWasFStb4NidOEaL5gtuf NzZXX7OV6ksM9cDJ5eNUrz IHNwZWNpbWVuIGlzIHNlcm yyrQn9GPVgY2Oqz50dFOQ7 awKaAYYsBCpzShCuT2w5PO kgdNbdrpW6hdI5RQ3gFMMg up9cEMI2dESzoVQoAILpfb Z4aBHfYNFpqJBvZuinRHVh h55sGA3bKQW9xbylAbN7nE V3bgNmGxIqL30aILJfmCXg b4YyvEK1cMJoVSWnR9Fvy7 2vOKGiBPBdaQVmeOZ2COEn mI4bX1Clx2P0vDCgGKJfSx 6bhH14eJ6bCQAgsRBlTTXc P8ClS3waiGYesVhfun4rTV rXY6M2BZBibg1= MICROSCOPIC DESCRIPTION r5syzPHkKUCifZW8HrGqMC (test code = 3371) Gwe0egi1AyvFPhgOPkZZjv pRDqufWloc51cVZ1kD82OZ 9wCMIcNsZ6RSBnhuK0Igi8 SNOoZONfhZKyV118s1dtm9 evisJbvCM9zXsgZKSaBLOd HUzdULYsEyBjBYBnFl3ykM VkXHBhcn0= SPECIAL STUDIES (test g0ljwRXmZYXky8eeUGEzqA code = 3376) FuZzEwMzNcZnRuYmpcdWMx YElagcDgKGgnc4IeW2IgLs AwMFxhbnNpXGRlZmxhbmcx FMCeVNB7mdEdEHZmRDzeHU JaHYqoXj7vdFAtdYpnYtIv PFBlc5ixqoHPktebuYk1b4 xhBHMrLwR4vIJlKUqqG4qx cgMceYTtV5WgiLWswWb0p4 kxCpNfAcD1qZDwFOqmU8va slNozJSaDTKpIVy4yB00DW OasN2dbGBmKNkqvtBsQuW6 SBftWICqCnK5AZBhtBLvMP OzJ4udWHFdQVwiSEVhCHeb yLFxQLI3lVelv6A1rAIfvW HdiNdlHtOwHvAfZgMBg1Nc LSj8hOcnL5TtDRUaQbG6nG QgUGFyYWdyYXBoIEZvbnQ7 vLwfimRqq29luTDiHYTiZK QoFvMqgQslRKVaRVXXp1Wz zFhjZRC1tTo6zJcsRxixVQ H1Upm6AR6dfa67sis6qZrk MLKllypxSwC4LRnuRMVnou bwZRs8EKtzJXQegHH2NRPo bRByW0NeTXYlBN5qefj5SX Z1WMfeHUDwHdG4SVEbgMEp SHQokFwtTSutd192ICX7Gd NoUW1wH2Ptr4V0wS3fiQBl YBOerLIwTzTrVERnsn7cjR OeYHwls8GjGKU9nyC3eKTm zABkHUXcUI32Emdma1XhMj bqf9RzW85veCH0CGbns7wv PJ1vOxW5fbNiPEblp7eplG 3dNdT9MQfoEW7iHC3aCQWv sZ2bznwtUCCuZdHhscogGW MmwMicpiBsBp9qxTriQHA3 LNhsD3rqvJ0jLmS0LVftD1 disY3sQNj7EUpsxCV0CROx xJ1fGH3zahqob3jkIFxeUD pwPFMamtP9cyC2KUGkkZMh M7SwzR9nBJGiKX1qvqhwa7 fwNVC4WPzhGLMdOUK2JtTe OVFye8Bhmno3EaFgd0QkbW PgPUjnB35xg392TXJnxdPx I4lcaKIzpgijrCZedpjlWI uvqeW6FAImGQZoNZviGFXg XGZzMjJcbGFuZzEwMzNcaG ljaFxmMVxkYmNoXGYxXGxv K7soRvPkF7TpQKEsNuMfDM kzXIinrVXrbWKfkTH2wW3n ZP7zGUPvwGWpI8UdRDFlxz OqrHSyORG9eNWjdACnTC1s RJpqdLRke1pnu7ZxP0aacY nueHO4UB0kBJAoTEXdDWxg i4OmmX4qDiqqfQLyorrdAK xmczIyXGxhbmcxMDMzXGhp W9esLdRhKBTbcUpzUXriq1 NoXGYxXGNmMlxmczIyXGx0 cmNoXHBhclxwYXJccGxhaW 9gChBhRjAtTnbwUO2yJEHh W1fweSPmBELbWHXtI9uuEu YmpD9uvGgeNPulNgAuDuBv JdKVx266nu1zIMOigXZcks HAxPLgoC6bNIewLAvjLKbm qMEeDVanw8ufHWUry9m3cG LrDGWirjAzm2fgAXecrzRm XBFoyJUgvXSzCXBuz20rRO rhqXttyYyoXTYkf2WbwTwb v1QtDdBaZZrtm3BvP57cfF JvbCBzbGlkZXMgcnVuIGFs z59uq5dvIXXlMtF4tWYmpA V7rEMwdDAkx4TrhVzdCLOq r3syNRZpvk0wjyewsHMge3 XlpU0zfxkvQHgmzZBjyzPh QZVcd4e1vRFfOEUdLEMhVF gtvFk0LLYqf454jf3ruvK2 pTBsAMK9LMjfUONuAUBlyg UgZXZhbHVhdGVkXHBsYWlu XGYxXGZzMjJcbGFuZzEwMz NcaGljaFxmMVxkYmNoXGYx UHyaW4blRsCuQ9BkZBXoSd FucPVqJ7vshNBcTKWbAJrb XGYxXGZzMjJcbGFuZzEwMz NcaGljaFxmMVxkYmNoXGYx JKygD9iqHiUjA4HrLSJfTs IgIFxwbGFpblxmMVxmczIy VGpeofnrTNVaIClkD5dxPa CzTPIbvUysWXkkk7OuIGEi IABnLjtvumAkIQd9yzQrZZ BhclxwbGFpblxmMVxmczIy OKfmzzluPRSoFWeuY8afGy OuOVKjuQggNHamf1GkNDQf XGNmMlxmczIyIEltbXVub2 tio3SwQ0frwYpvzXJ8WVXy Y2pgnSVxbTH2YYJ4xX3jVT xkdnNrVJQvs7DaTFZdUFYc JjR1jK2oYGC0CyWMcSwiDZ BsYWluXGYxXGZzMjJcbGFu ZzEwMzNcaGljaFxmMVxkYm KvZUYmYWvfZ8edVsFfD4Be TTLjWbZoaFoxJColKTp6Ys xwbGFpblxmMVxmczIyXGxh icynOWOfCGceN9nhIsRfRQ HubWftTJwpp3MpSGRlHRHe MlxmczIyIHMgTWVkaWNhbC AYTG88ELLuCNAbtOaftW5i fMILIHCsqwR1f9Q8PRkzQN AdJBj0YQvkukTwAOWtzZ0g QXOyYJ2bXLn3xbGyLZAcc4 PbLL4nFDPflZWcRPG4EMKy g1TxK5Vps2ZuZNBvTCAqhh 6skxQxRjOFhXNyGXFgot68 AXOgAN6yG4kvHQNwKZPcdz BlrXFiw3PcNDKrhJO9sWPt EE8LSaWLe53qJEFgKZLZts SzXDKhgZkwzKC0cwH0sG7t LiBUaGUgRkRBIGhhcyBkZX Yedh5tnmBsKGEbYCHfk7Xw bSUvyGFxzdVnQ4Dpl3CmJH Zsbl29THnxeLCbqc77UH6m B2Sat1GadR3uPUvwDUHtq5 OekUOmrIVxYQRza2JfA0we dsdqJLpjcANgsG5xIDIfZP e9AKWzh6UyHMWnl6XlKoKh aeMwTOQnUDHhEZMcvN18MO E4rUtuhYtudcBmRT6vPGCw kyXwSKErOBTrsA7bHQvagj DcCGZfdlE4v2P8PDbiSYDx jyBjYknvSAC1zjUxvaK6qW PwV0hjfkfxNZvxETFuu9Zk lT1ecIBZfUOdj1HvsJElxA CGpSLbIS1qrwGcOA3jNMQ0 ODggKENMSUEtODgpIGFzIH B3FIssMdbiOSO1csKkSOXx n4VjOYhnR4riY82deEetsI t1oQOwuTyjwGPidWOpBPRx kuT2u6H2OLCjy2OukgcjCY BsYWluXGYyXGZzMjJcbGFu ZzEwMzNcaGljaFxmMlxkYm HbEQJlDXiiZ3vnRsJaCuNj YmkxSIM6cM== [facility] [id number] 16:48:00 Test Item Value Reference Range Interpretation Comments Case Report (test code Surgical Pathology = 104) Report Case: [id number] Authorizing Provider: Trey Galvez, Collected: 01/11/2021 03:53 PM Ordering Location: [address] Received: 01/12/2021 08:17 AM Pathologist: Fredi Hermosillo MD Specimen: Mitral Valve, Mitral Valve (send for C/S first) DIAGNOSIS (test code = [id number] 3220) FuZzEwMzNcZnRuYmpcdWMx IHtccnRmMVxlcGljOTIwMl ccpdTlBJLsmFOdJ4Kvjdru YGlcPX0qJM3gsXgrgJKjdH TcERSbFdPvq3rzh513sNJa q8uxXSNXdsghwDt3sLliQ8 4va2T5GyayH42chEOcCAyw bGFpblxmczIwIEhFQVJULC BNSVRSQUwgVkFMVkUsIFZB VZOXFGTGOS5KOCfuvMTmZN BSBdIYBh8CILNKWGWBTEZQ BMwQBHCBLN5XGSPDSyMXLA 9HLambHFDPGY7NIyISJIPa BpGUKLRPCNDJRGNVO3OESC BhciBMRUFGTEVUUyBXSVRI OYGYI9MJBR2PPZEWNDXWLI OCCFXTCmnYIZBQHPKSR2FY KCDDX2HXGvXpzBFmbOlnpv IzFQtgp6CaHKbdBHAvYW8e nEmqJKBgLO6sEEJkA2jxqJ 7veiy6ByEtOKAiYiW1KGCk mgI2Sdi7UVQcVWmgv6lbb9 HkLAZvFVt9vJntPpWtCHLi s1dcfyOsAnUtVCOvMLHbPI JguJHzW534y8qjq5azvxVi wSR9IWMfHSZ2PGrmneIrps X6LWdskLKaOzY6PNozvsWg TAxfzuAfjnErLuh0YYQgL8 56XGO1uDwnr7aeSZN1TOWg XYSbHaPkYp7jnCQdI259WW HhNJALHQMovPo3ZSWojeVt pfLmnCATb843E847f1yjWV VgexVbfNfXjkigm8fyP641 XHBhcGVydzEyMjQwXHBhcG WepWW4JPDpET9xbqtsVXtn FSfmFCWgmcS6NTLliKEdR7 WwPQQxYY8jfuxoRMX6DIgs OIXxUJO1LbCdCVGmd7Ymkg t1LqJrlg7ula07MGX9i6Na bKwjCMM7DZA2ZtAvNk7xlG DqWAXxGA1qOhUetQFjKLOm bq16uSkuDDhmZXE2JECoum Tcp4Bwm6mpScRchdEsE3bw S2TnBYYlPUEkHDQiIyFmny Wuc1Eed3ReiNKbxKs2o7gr LDZpGFLtzOqgl2wmLNL6WG WqyDHtF0gbkC7mIEFcAI4g noklj5ehSCvtQSshVERuqA C3fdN9XHTbkMOfG6YugD4z SGWhUDiqTPBcvvo9TtCuLp 9vdGVyeTcyMFxzYmtwYWdl XHBnbmNvbnRccGduZGVjXH BsYWluXHBsYWluXGYwXGZz MjRccWxcbGFuZzEwMzNcaG ljaFxmMVxkYmNoXGYxXGxv B0bbFgFpUbMhNyt3KBJchT DkBEKdLpi5UDSvkJVcYLWB hIaefW0rFABugLwmgQ5zwN O7SGIxmnYqfUOWfG7bQGFR oS2cLoW3MkMkRdW2RYw6XX FccGFyfX0= COMMENT (test code = z7xpnFMdHHCqmAP3HpAsHE 1097) Vkz5hro1NuwFAugIWkDEng rGDpkqHltb46dTE5kP40JR 4rCQOcKaJ5LJNssrV1Qxf1 NIZtDJCmnVSlC903j1elj7 jzhzJoaJM3jQwqSHTlWBNu YWluXGZzMjAgVGhlIGJhY3 RuolknKPTfhlUlxS8cDNNs xwD7pTJznsMiAWOtdXjjei ZggnVeWSSrVK2cdmM9ICUa LI3xNAXsezmeAjl4SQH4XJ tlmQ7hJFnsoYfdeRnkl9Hp MWtdHZ0nPDV9EGfxiiPbqn SuV95YFUI3PXnzdnmxHoV0 VORtQATrlfNmr88yfsTzqI Zcx5LcfQ4cx9t5VLbcYTCv TZYzi2KaK52yG4asTKtzUN J9 CPT Code(s) (test code i0uteFIjAWCqtRX6JdAiUK = 3357) Wjf1fsr5KvbBPehMThLWhu wNOwqjTpqd56oVZ3tM45PM 6iFTLxAfG1XAJdsjJ7Bti9 XMDtAPRjoRCwF270l3scf4 uoxcAacPX1lMjwWZAmNSCj LTvaFMSjFuWvVSbfNZN7SQ t0ZcSoGFqyC2jvOFP5 CLINICAL HISTORY (test z0tmpCQqYDTpmFD7ZaDyJT code = 3356) Frt0wea7HddQLmkSPtLEwg fXYgvhQyhv44eWD3yI37UD 4qBAXbDsI9VFLdjzD0Ghw6 STYzEBOmsXNmS155x8rjn1 lqciRmyNW6aErjROQnMRDi KBgbLHWdFvOnVR1ad7Zrff LgfGwqDW3cVF8ikVRcjKS1 YBq6ITNqlAQocQ== SPECIMEN SOURCE (test l1utzSYxKJAwvYC0EeVbHQ code = 3377) Jem0clb4FywHTzvLMdTRqg eWGvjzHcmf77wQW0fS29SR 8eXWKrUbL1TTYoycS4Zdl5 ANYjHBIerVMdH167b3kif0 mfasKeuUF3gBnkEPVzPKRz XQdjVZKwUzUaZAm4gmJlRD ZhbHZlIFxwYXJ9 GROSS DESCRIPTION (test i0okrXMzVFWznLOyWvAxEW code = 3366) TtOWDvb9umOFUyuIWuBoMl MzNcZnRuYmpcdWMxXGRlZm Yxp5lna480sYSqz2yuYGTX lnobcDw7k0yoSSDaPaR2bN WnUFqaN1rvhsOquWMfYQJi UQv7mN70HKKbvF9vwFRaNG ibtqRcUiE6RXhgDKMtOaB7 ALOsqIJjROFeY4sxSVUpOM fzMTCoESbqvFSdWMB0rSja k9R0wUAsfVKmmBmkPtOyGy CnKQAKr4ObAVv8kAiiC1Cz SSRiFzT0tAQgBTKoLXogOS OzFHHrogX9xR18LWktmrZ6 qYZkc3Wdz50kz213kB6bnP RoDBK1ALRbCAPoeDNuYYAt WXP4BLPukHUtC5i2MvTlvL KeD6C3AqSueGFcT1W4PuRt qLSqC7P3AoZkwZVtJWYmvZ TkWe2ugHMqjCFvph0axq58 WQS1d4JwcThaOFX3KTT5At RrNf8sxPLsICFvDLPbpUMr ZCIkGO2zsWIoBNPevP8zkn xjXHBnYnJkcmhlYWRccGdi ulIcRp8bqGlyNST0POeeL3 csjI9bIxG2LBpdV4nyrV7i OVr5MNjowXC6EARwsV2jHK 7ybdmfo2orUaWoBE3srwrn j3pvZaZpAB3awam7y3mcVo JjMK0mhqkrm5fsKcAoDCte UQEcolntZNQph1PywhmdLQ Ekw0UuD5BqtHauL82beUhi Z09bNBHgtHqhkD2ztKesbT 5cZjBcZnMyNFxwYXJkXHBs YWluXGYxXGZzMjBcbGFuZz EwMzNcaGljaFxmMVxkYmNo SUBhRHvnV3ieDnUnHyAcGW BSZWNlaXZlZCBmcmVzaCBs YWJlbGVkIHdpdGggdGhlIH DcyUocqaBjtvQhCJ8lFMVr QYWbC6EwXRNnF11rWHNhjL 1iZXIgbnVtYmVyIGFuZCAi tBw4azChFDVtmDXtTbWpnz ZwSUKyDUF4DGQiGTP3HWSw VAXlvLOvF7iwYDkqdGOcy3 YgdGFuLXBpbmsgdmFsdnVs WOKknVebf7EkAJqnaFpqQV A3EFDgYVLlU3Fzj0XbnVU4 twToyRSqc0VfsWLgB0bybs XhNMH7UU0lbC6xWO7lAUdu IHNwZWNpbWVuIGlzIHNlcm nyjQk9BNHvM2Cxm20aDQO8 niLrMRYiYAehNxKpH6g8MI aifDkzrsH5bdJ9WW3tVAOb av2aYNA5eINqnMNyTRZdci V4bQMzWBZszUBeRjeiXKIy b83oCQ9dJKL5sgafTuC1eW D6ewLgTrUqA88lSOEjrUEy y6IziBR6aFAvYHGoW4Ocz5 1dLYJhBYZyyTZvbBE2SRRu vG1gY6Nsv2B2vDZzBSJsKv 4vnU27pZ0cXHGvqQEbXYTf U0RfY4nnePPukLnury9wOS zUW4I5TDGclx7= MICROSCOPIC DESCRIPTION b2vioPZkSMNddVS3KiAsMW (test code = 3371) Lup2mgy3OlqPXreTDqRIzi yFRqemFuec96wHR0yM13HH 5tWLTvZcD3PCCqwcB8Pjl3 IMYlBRJarIQfP069x8hju7 hmmbWzjSY3dCgiWLMvMGBe XAixOFKgHhCeVCFjLm0enV VkXHBhcn0= SPECIAL STUDIES (test b2exsXBdYARid6bjRWAkeS code = 3376) FuZzEwMzNcZnRuYmpcdWMx COvxhlVjJEbsv4XcX0QgOl AwMFxhbnNpXGRlZmxhbmcx PZCzYLX0khAgQMVcPCxiOI KbHNnnLt2vyPHudBbxRkFq DIMzk7lauwCZavoviGv1x2 tqWAIoLvI5oEJfKRsbK1oe pvSeqQGdI2UdaPXmbCm2u7 xhQjLiZiA1qMKxJZaeJ8mg icGtuCAjQJYdENl7yI51XH MdmC8tbGPxKEdjdaUeHwE7 MWdvZSHkJfP2OSRuhGYwMM RfU3fcINLxMRuoACPqWEnk tXEwBRB4xMvgz6M0gKDnoH HtrEmsLaVpLxEsXrSDn1Su DAy4fVxnU3GvPLRmGlG2zZ QgUGFyYWdyYXBoIEZvbnQ7 pCkemxEsy18pgFWwLPPjBE XlWmCriUoxTCNlGCYLx2Qg mDtqTPT9xZc2xYyuBxhlCD R3Qvp0VY6pfq61dnv3rPgp HYLmymkzAuR4SXmhUHPvmd fjFNx9FQyrKHVpwDN3TGXg vILvU9TmFTOsJJ5stsw5BG K9OTyhAAZyDnB8MZBxqYWi HTTahEsgOKpjw566ZRW5Cu CkEE2nW9Psw4X1iV5ceVVm ABAxtIKaPcCpTUDsdg9taJ TnZCavk3UmBTX9chI5iOMf aDIwPEJqRB63Lklgf8IkMj cpc0KhV90amZI8KRvnd6cx VK9wQmJ7cqNyJAzyb3xdbE 5yHkL4HLrmNA7xTS7rVVYl tW9shnxuLIYtIcTfjrikTV IdnQxklcFqLo6adAnkLFF6 UVrkV2dwqR0vZbR5LZuqK7 qyrB7vGQa1OQxmuZF9YMFv nS2yKI7qpcpet5trRQqdRN faYFDkgqJ1vqF9KBMtqIKw D7FhtU9xVLYpRI4csppzk2 osHRI5QPvsWTSnSQU9GeYz RZCaj1Btphq2LvSrq4AnxV BeWDnsY20wv199TBShahQu J3ecpRWzwylvcJHfcdxdVY jmbgB6RERkFFAfFBmcWUPk XGZzMjJcbGFuZzEwMzNcaG ljaFxmMVxkYmNoXGYxXGxv A6esSdKvI7YlNLIjFjDvZD wgBIaqeZVmjWHuoSY5bE2z NB0hRIXgdGJpZ1WnOZAcsj HioIJiCSN0oQBhhNPdDD3m VWsowCOyr1yjh8MnJ6umaT hmoYT6EA9eQAHtOWYtDBco m6DtlZ8mKlrzcTVsbuqgRP xmczIyXGxhbmcxMDMzXGhp V4icDlCyQRLdbOidXAkls6 NoXGYxXGNmMlxmczIyXGx0 cmNoXHBhclxwYXJccGxhaW 7mPbQhRdNiKxwqMK3xDPTo Y5bnpKVmECWlJDMsW7czGt XolZ4bzBwmULsuEhZrAkFj OyCVa664zb1iOGDzmMEysn YGfDHdtN5rRMuwDOuwAWpy rVXzKPmrt8pxNFXzn8p6wL DqYFYqomQvk4nxLGvvetVw NEOgrXLutNGhWEHdj28vBC qiwHazdHfxDYAvj5SqyRde d5CzWfHmLOmbx4HrS08dcD JvbCBzbGlkZXMgcnVuIGFs p97zf3xeFPKmNvM6aCYvnP H9sGJepWKwc6VwbBhdVLTd n6npKKYgku8txnwfqGHrc1 RvwV6ltjkdOTjafUBjokUp AWDtc5o1fJEeZWKxMDTxLZ dahVr2ZKSbm621gy5howL8 iYEyEKX7QIsvLTEtSIGape UgZXZhbHVhdGVkXHBsYWlu XGYxXGZzMjJcbGFuZzEwMz NcaGljaFxmMVxkYmNoXGYx PDbcR0opPrCrZ7VnCYCxWd KscGGnK0fdhFBtVHRtGQiu XGYxXGZzMjJcbGFuZzEwMz NcaGljaFxmMVxkYmNoXGYx OIfvM2slJkHfY0UhYTAzHb IgIFxwbGFpblxmMVxmczIy AYpzwjfkJRJfAZypD1ucVm BxWTSheBilVNdfr9XzAJUn DWWpXfcnrrRbHTh2nbAuVG BhclxwbGFpblxmMVxmczIy OGlrtwmbKLIdEZjoD5veIa BqVNQusYwfQGplo4FsJJXe XGNmMlxmczIyIEltbXVub2 yjc4CjH3rsqQhiiHG8UJPc P3iooGUvtDL6YQB0xY8qYH aespQbYIFec9CkKUPcXVPw QeG4sP7aLWX8XpGCbGhxOZ BsYWluXGYxXGZzMjJcbGFu ZzEwMzNcaGljaFxmMVxkYm XqPBIfVKaxJ6axXjSmZ2Mc RNVtMsWqjLzxWVkqNTw9Xh xwbGFpblxmMVxmczIyXGxh wnpvIMAmHWvuT1glIbNbLX BkxGkqFYrzz3JmQIFiIAFk MlxmczIyIHMgTWVkaWNhbC LDDY45TISfVDPosBgcfW7j aNWIQCKrkpY3d4P1TWvgUN JoRGq7GHqdjlQnFRDhuJ2p EGCfUW0bBRx6zhRoDCLiz0 EqAS4zMDKvrSChFSB8NBLl z8UnC9Zqv1EmJNJrKCLdxc 6oaiDqGvMMlISpQSSjic62 AMWzMP4dA2wkBVCcRTXcrc DzmGQtk8JmMPKmcJC4zDUx PO9RSpVOe51hUZJpEPWCfz XeVWTesGfgxAV5cdE9tE0e LiBUaGUgRkRBIGhhcyBkZX Lxpk7csuNdQDHlSQQxz4Si lAVswJZnujNyD1Ccr2NxDY Oxyu69UHskzPPlvc76YM3j E6Qud0ImmO8eARxsAKBnz3 IhdCKlvHCjYLAmv7QbC7jp lvvnUMgriFYwnY8aXIWgIE i6FAQbl2LeJRBya8VcTzAq lxMtKBTyMUJxIZBwiA07BY S0gQqzzLctpjMhAK2vRBZu zeKqOBTvKXLldT3kDDlgsp FoOVKjgpL8r9G1AFzhPBPo nhStBaqkZTT6dbEibfE1yY CdE7bdckniJMnaBRQtf3Xz cS8shPTBfHNmd3QzjMSkxH THsCTwQR6vrySzID1nHEQ7 ODggKENMSUEtODgpIGFzIH H5CDpsNezhJNJ7wqNtYKXy r5CmAXynV0yxN44drSojjG u1vSSbyExmdPIakJJiFHYg aoZ7i9U8EASqk2IwjpgjXX BsYWluXGYyXGZzMjJcbGFu ZzEwMzNcaGljaFxmMlxkYm PhAILpHHgzF4hiJcZyTaNf TvfhEWK1mX== [facility] [id number] 16:48:00 Test Item Value Reference Range Interpretation Comments Case Report (test code Surgical Pathology = 104) Report Case: [id number] Authorizing Provider: Trey Galvez, Collected: 01/11/2021 03:53 PM MD Ordering Location: [address] Received: 01/12/2021 08:17 AM Pathologist: Fredi Hermosillo MD Specimen: Mitral Valve, Mitral Valve (send for C/S first) DIAGNOSIS (test code = o0kgqNFrDINyf1guTWVphY 3220) FuZzEwMzNcZnRuYmpcdWMx IHtccnRmMVxlcGljOTIwMl vuylOaEOWgsBZzL5Ysvtms HHjiAI7iYF7twIkcfYRpeW ZvPKPkRcPdn7pen968dHXq q1juXZVNwnbttWy5uPrgF4 6km5C6HcueJ69ykRDyZOvz bGFpblxmczIwIEhFQVJULC BNSVRSQUwgVkFMVkUsIFZB EAEVXQZOWV4JTAxmwHQvTE ZKXlCUIf8EUKXXFXPRCFZQ DFhWQSFOGI1SOKZAKnAFNX 8KDukvMLKZNA7JOgGVQZBo KlKPTLQONZVLNINPO9DYAA BhciBMRUFGTEVUUyBXSVRI ELLKP1HTAW7QHPPADJJTTV RIIADBOojMOMAEUNLEX1XJ TKPVM7LRKsFseHKysOacdv ReOChmx4QsTRijUDQgLG8c uSkwXJFdGS6gQMOjA1buuC 7boph0YgGkLZUxJfG9EZHp vgO0Fup7BOHlWObor9kts7 MnZHOnJYq0fEmvCzYrVASh y7mwveKmXaVoNGUfPNDrTH WkmUCrT400b0xkn9hsliWi gMD7OXZhVPL8XIvtswJfao T1HWqpwQPsBqO6DIatdeSi ECxffyOjqgFrOry5IBKmQ6 69RTD4oLurj4byAPP7ZHLr WXTdZfUcRq2zvSShX232FM CgALVAXEUnlOw2RCTyzfVh tyKpqJZVl785G416i8wvJR RcyxDkkZsLpingy9noB291 XHBhcGVydzEyMjQwXHBhcG MvkMX9NUXdII2efapeTIxg GQmjPDKpzlQ5YMWptAMtC2 SyMBNrOB8ahbgsSGV5LPfj QZSbYCQ1WcDzUFHut6Deda h8PgBqiw0klt19PHM6f6Ur xCnrHKI5RIL3UnMjTo8dqO WxBMJwRU7yUjLpzAWqJNNv ed12uUarZBrpKKI0PUDwrv Ggf8Ecw2ywBqHgzxNiX0sk V4JdSYJwKQToUGGtIcFire Imp9Jqz4JzqGBbuQx8c2xr TBHtQRIagGyzz2elQBI1HX SyfXDuE8hmsM6kZUUsUL9n gfvvb8grNFqpSWanQGZmxX J7ymC8NTTdoSMsP1ZzpV2i EOAnZAhzYIYccec1LgSbCq 9vdGVyeTcyMFxzYmtwYWdl XHBnbmNvbnRccGduZGVjXH BsYWluXHBsYWluXGYwXGZz MjRccWxcbGFuZzEwMzNcaG ljaFxmMVxkYmNoXGYxXGxv V7mbTlReOnEyDiv0SWPdaF TeAOMmIrn8ODDjaTBwUSNG tTbohH0eAPYjaQsxgB9mbG X6KIWeweKrnLULxR5oUFVZ yX6xTfG6QwGtMtO6WVc1LU FccGFyfX0= COMMENT (test code = o7oonGNsBPUynRO7PoVqRM 5942) Dmh8epa3CgxVVqoVGcDZxz sHSnrpUfrp59vPE9yN73BK 8iHCSpIhX6GOYhviU7Shn8 TEDtFWXbwFTfV015a4ahm6 cfejBtkYE6lYhkWXSuMDFh YWluXGZzMjAgVGhlIGJhY3 FuuoivKINtgkDmhG4uWJCc qlW6dDSevzVcMJYdkCttje QgpcQcLXUzYE6ikyS4QWYs JU1sAVRmezphInm7LPF5KE txlB1pRPaeoHrskNqzr6Oc LClfDP6jZFC5DLjjaeHrvq AtV32ONDY3LQhhvmwnAvX3 XCUiBPDuolFwh04ozyUkoH Mqb8MteM1qa9x9BKhnSRGo HWTwx2XzW23fE5bfYLntSG J9 CPT Code(s) (test code r6botSJxUGSxiLU4SuYuCZ = 3357) Jmq5whv3VupYZheYIyMGsp qVTzrvJcnd33sZB3oB32TU 7qCOMxEnY5NZQbkfB7Qcj3 XOAbZVFxuKRbD398w6iyq1 vgqyOsvPO5oZqtGBReVEVn MZqqAJYlWsMjPSbcJSF5HU c8QmQnLYeiS8znJBF5 CLINICAL HISTORY (test m5wrgUBxHXNvcEM3HbClHU code = 3356) Npk4knk0HrwJJzwHDaGKss rQZmeyUrbw41pKJ1yM47AT 7dSUHmWgJ7DBJivxZ8Fhf4 WFNoCSJtxKRnK191k6uaw0 uvzgUzrVG9oGpbZROnROSr VThsRFGvHvKvLG6xf8Mwdm FfrWabAD7zMH2hsDUvhIM0 MXc1SHUokHXhwL== SPECIMEN SOURCE (test y8dpyZYaUWKeuEH2PoAqYK code = 3377) Sqn5wpd2HkbOEfvTQrNPvw cAYcojKeqp13dKK5mJ16XR 9tLJFgJqE9OWJolhN9Vbc7 XMXyJEIaaXZfX408b1xrc9 boukTdoBJ8cNuqHMXwDAGh VWdfBZXdOoIwBKf9jpHeLA ZhbHZlIFxwYXJ9 GROSS DESCRIPTION (test z7hdxYAfYADdrEIvGxDaPR code = 3366) MtPNYob6nmLXUquQFiVnEw MzNcZnRuYmpcdWMxXGRlZm Ixn7tne602uEAhi8aaADOJ utosuOk1s7fkOPFqLoW4dW EjQHbyL9hfriDfxKYzXMQd VRd1mY12ONEpdU5qjENeNJ agjdTdOfH5XXehIMTeYxO8 KECbdCTbMDTyH3lqUHEwWF rjEXTfZPmpwFPdBBA5aAcg x2C5yQRnfGQlxTjvThRrHa KbZULRd5YxJAw2jVosU1Jf NCSzGvB8aDHsIXRnZSdmCL LfYNCiulI2iB15SStmvnX6 xMZsq3Ukb04qg890hV9snH DtGOE5PRRlPPThdQPrVQLm SVB5GNQcuXHdI6h0CvEgwK GwT8D8CwGmaZRvZ8U2AoHb uDCtN6S7UeDhuDYlYMAxrH AzVb0thNMhiSWhfx9szd81 DBJ7a5ZhmFstMQP1PDM9Ih NyOv7idBOeLXGzCXMtwUBk RRPmMK9vaKLfFXEugH3gmv xjXHBnYnJkcmhlYWRccGdi srOxAv6piIamUIY8VMlxO2 jhhY4aLnH0SBeuV3eqwE5q PEs8ZJaazWX8ZPKlcW9oTS 6kdkpmy7qfUhJgGU1eyvqa q9kgLaEgSO4pezf3j2nqYb UzSM4dwzkri6ppWlMgNDxy LITxvwtsWRRrm9DlbhxmVI Nkw4JjF8EkjMhkE60bcIwj R53bVRAbjShwtI0kcYlbgB 5cZjBcZnMyNFxwYXJkXHBs YWluXGYxXGZzMjBcbGFuZz EwMzNcaGljaFxmMVxkYmNo QJLsNOibE5zqBpSoCuTcTY BSZWNlaXZlZCBmcmVzaCBs YWJlbGVkIHdpdGggdGhlIH KxzWuymvJlncCyJO2kLQNh FWSxS1RsGDWzE40bXRFkhV 1iZXIgbnVtYmVyIGFuZCAi mNo0wrStPWLiiZBuUkKamo GtKELlONB3DIMbPVT4BZCo RJYspKZdK6voZBglzUCrf1 YgdGFuLXBpbmsgdmFsdnVs NMYokHmay1AmEOpwtCgiDF Y4CZEtUFOzW0Zrl7RjrWD6 ybNbeGGcp0NakLHoX9sewd LwJHN7SH4qiB4rTH8iSIqa IHNwZWNpbWVuIGlzIHNlcm sdbNm4QUQhL6Veb12oJMR6 rpEtFADzQMouLbLiQ5o0UC wkyDnhdaS7oaA1PY3mCWFf ye3mPKI6uIPnoYFqKNLkpc J3eJAxSNRddFThRnegLKDf u11nKA2nLNB2auybLsN2yD R5dwZfMpCtQ96iHANtrMQe c0XyrYK0pNYqIDLvT0Wtp6 4vLIBfVOOtnRPwwSO3YMYx qT8sS4Jro6B3gOFoTUWwZa 0gyB75bU2tMOByxRKmTMHx L8MbB4uefJEcuBddat7nWB pPH6X3UIKses0= MICROSCOPIC DESCRIPTION w1vakDMyQUOiiAN1VeUlEV (test code = 3371) Pee9pzf9HdgJFwmHUkVBly qHXohvXgdh71lVG4bP87ZH 8yPJVoAzU2JMIottW4Tds4 TOKjCQJonZYgS105s2bkb6 hfkxTcpNH3aQjvCFXsVDAl QLdcNHIqOcYgNBLtLu4jpZ VkXHBhcn0= SPECIAL STUDIES (test r0slvIJkUYCka9ysDBKopF code = 3376) FuZzEwMzNcZnRuYmpcdWMx GGmjzdAwAPrrp9NvW8VwGz AwMFxhbnNpXGRlZmxhbmcx MZBbWAO3ahFdQQApUNggRA JbAVqvJe6vwKIlxNdwHsMl ABEqa3ejnzGMxukiyAx2j8 xrFJZqJdJ3sZOgBIunU5yn ibJyeORpL4MoxJHjwMr7r8 nnGhEfVjH1qRHrQWkaC8fi bnKrvVXyDULhUVd4lC87TR PlhA8kyRMhQWqnufHxGcP6 CCcjYKVgUxK3FCDcbWLuDC AbW6liGFFxDYzqBEQbNDyv oNIqJEP5zSfbg2D8iUEpeQ GjnUomHdUtFtLeUePWe5Gk CUv2xLxiZ4HaYAYiUsE9rQ QgUGFyYWdyYXBoIEZvbnQ7 aCatxiEhg39sjAAdPRZvHY DtNrHpzUgnYNWbCGBTk7Ss uBnkLMZ7mOt0hTsrOzwiQM P3Jhz0MR3vvk83hos1vJfv SQWprbvvKxL5IRfqMMCjtz qeKWa7SLdpTILybDZ4ACKl iMHuC1TeDBEePL4xilj2KY N3GOblWOZjHyP9QSFfqCYf LWNpuEveTOdhd518HAI0Js RwXD3uL7Qnl8Q6rL1woJKc HMWirLKiTsBhHORptk6lhH CoOUorf5KsSHP5ezR9iINy eOIbKWCeWI56Phtyr7JoXb tet8VxL10qvVA4EXcbl8yb BQ1qZlO3omOtAJhwu3ggkC 2uVeS3HXyqLD3aZL2tXBEo dH2fbihyUKOjLwIqhbjxIA HavGihirIiLr7idAvtPSF8 WTywB3mgjO8aYmK5YUylV9 wlyI6yUWu8EFkghMK8XGTx qL5aFG1cmkscu8dbFYbgSV lqOGUymsQ5poL1YRWndYFk Z5MaaM9dVIOdYX1hyhmps9 kjUFK8YJuxEFFgYCE1BhKn RSBpt8Cmawq0GtJsp4HdkK AgOBphE01lg894NORsltSt O0tkwHBfvmcrpUDwxmsmCM dwveY9UDIgUSMfQHkkNTEp XGZzMjJcbGFuZzEwMzNcaG ljaFxmMVxkYmNoXGYxXGxv S4usAnRkY6DbOZHoPcTnUA kgJNblrIMfkDCshXC4pR4z AR5xBWXaoUVhC0IrKSNofc ZdiQHkLHX4kWVynPLfDP3q THywjEMnx1vtb1LnV0akiN cjeEA6OL5mILFeSVBzYIra y1WfnS2iSfnmbGWqzqrdVB xmczIyXGxhbmcxMDMzXGhp I7owRiFeYAMzmMkaEMaga4 NoXGYxXGNmMlxmczIyXGx0 cmNoXHBhclxwYXJccGxhaW 0qVdCdZpOtDydvNV0jEGTt J5rgdLRmLLOoFUJhE7qiWq CvxY5avTblLOjeVhXmHoMt AoEAb980lx0sLKElvFXvmp JLeIJiuW5nOJksDGtsVFde mVXfNQqnm0kyUXQys3b4lF UcNTYvptDpj1toEBuqbeCm VKRigLJenPMgWBYmz69pJD vgiTeknTulPPXpg0IprXak a5WbKwYiHXohh0OoE53mzC JvbCBzbGlkZXMgcnVuIGFs h57ik6ubDZFsZkP2kNVjxP K4xXDogZHgh5GeeVimRBLo s7gxWNDdfs4yqpgqaFQzz2 YjcI3dacxrBKjsfHPdslTz QOAwb1e5iRIwYWGvWYSeRI fjhXy5ESUwg036yt5atcZ3 bVZtVTF6AJlaLFPaMREwol UgZXZhbHVhdGVkXHBsYWlu XGYxXGZzMjJcbGFuZzEwMz NcaGljaFxmMVxkYmNoXGYx LRkzU6xpQaBwA1GoPPYeKf EcuPQrX3ylvWEwNXMgKHdd XGYxXGZzMjJcbGFuZzEwMz NcaGljaFxmMVxkYmNoXGYx DJmlD8psVlKuE4XyJRGzZj IgIFxwbGFpblxmMVxmczIy EGhmqhxmHFHlFFwcU1biAk HrJIDlsReiIPmrq4ApODWi DPSzJlrkztFjADi5etEuDQ BhclxwbGFpblxmMVxmczIy DHyqvevpVXAkILdbB4yqIz YjSGYxzUpaIBsju8EoAFGj XGNmMlxmczIyIEltbXVub2 dzj8AfO1nsaOqllBP0SSWx D9rxdXVwuED6HUU9sU3uZI iqaoCrEEDnl9VcOSZtKFQb EhP3pB7xCVG6XbVHrQubLA BsYWluXGYxXGZzMjJcbGFu ZzEwMzNcaGljaFxmMVxkYm NlKNKdOWbvW8eoYyArC7Mx WONiXzCypDmzWXavVWb4Jl xwbGFpblxmMVxmczIyXGxh mpxjPVYzKHdxZ8gwGoGlIT XbeZquTZoym7TeMHFtTUDd MlxmczIyIHMgTWVkaWNhbC OKGD96UJZjWYMfjImpwJ2v gIUNQWIozpG2j4E0EIxyTU AzDVw2LItcxhLqIXBxeT4o IYRlNW0aHZg5rvLrARJog8 VuLW3yUSMwyZCoDDR9SNAv a9EeR2Jis2ClHSOjYSQzoe 0yiqOoRzBPbFWrXEVnpu61 WWYsTM9lO4acDLVgNIAebj NphEWie8XbIGGquKE8sXMb IH6DXbNLw97iGHCpTDYYvi KdNXGovHqxqAP1vkK8aD0b LiBUaGUgRkRBIGhhcyBkZX Ntuw2odtJpCYSaPJCtu3Zm kVVgsHLwpcYuS9Kug5ObUW Ocru70UZrizIWreo17QY9a H8Kqa8DonO9eIDbjKBBye8 RxsPWulNOlBIFuy0CrL5kt uajmLDgbpGQqiK0aUFOgMT a1AHGcx7GkBIWem4UwGbId ucRdMNFmZRCoXQUvnY57HI M3bDkewIouitQnLD4tICOa rwJlWUQqFOEjaX3fWWrtaf BwJPWuapU5t4V1JOwoVYVt keZvBfgaNKA8ukYezbF3sR TzM3iilygyCSmtQYVlu3Jb nY0opCWKnGRze4ScfNLuuV YAnQOyDB8ynoItCL4iZBG2 ODggKENMSUEtODgpIGFzIH J5TJulYzzyHHF8txUiVHEs b1LrBGkoO9lwT17chKsafY b9cTWauCspvFBctUZuGBVy vbI3j0L8POSpd6FuihoyEN BsYWluXGYyXGZzMjJcbGFu ZzEwMzNcaGljaFxmMlxkYm DmOVZsMYlmO6dvEuZaLhFu XhqpHHJ4mB== [facility] [id number] 16:48:00Surgical Pathology Report Case: [id number] Authorizing Provider: Trey Galvez, Collected: 01/11/2021 03:53 PM [facility]ingLocation[facility] [address] [address] Received: 01/12/2021 08:17 AM Pathologist: Fredi Hermosillo MD Specimen: Mitral Valve, Mitral Valve (send for C/S first) HEART, MITRAL VALVE, VALVULECTOMY:FIBRINOPURULENT VEGETATION CONTAINING DEGENERATED BACTERIAL COCCILEAFLETS WITH FOCALMODERATE CALCIFIC ATHEROSCLEROSIS Signing Pathologist Direct Phone Line: [phone] signed by Fredi Hermosillo MD on 01/17/2021 at 4:48 PMThe bacteria contained in the vegetation are degenerated and variably staining with tissue grams stains and GMS stains, but the predominant morphology is that of cocci. [id number]; 23633 x 3Endocarditis of mitral valve Mitral valve Received fresh labeled with the patient's name, medical record number number and "mitral valve" is a 4.4 x 1.9 x 0.8 cm aggregate of everett-pink valvular tissue with attached grossly unremarkable chordae tendinea. The specimen is serially sectioned to reveal bright-yellow to everett, firm, cut surfaces with calcifications measuring up to 0.4 cm. Babysitter sections are submitted in cassette A1 following brief decalcifica tion. MJP/ewPerformedThe interpretation of this case included the use of immunohistochemistry or special stains.Control Slides Examined: In-house known positive controls were evaluated along with the test tissue. These control slides run alongside of the patients sample show appropriate staining. Internal positive and negative controls when available are evaluated Immunohistochemistry technical testing was performed at [facility], Pathology Laboratory where it was developed [...] qualified to perform high complexity clinical laboratory testing.[id number] 15:29:00 Test Item Value Reference Range Interpretation Comments FIBRINOGEN LEVEL (BEAKER) (test 273 mg/dl 225-434 code = 658) [id number] 15:29:00 Test Item Value Reference Range Interpretation Comments PARTIAL THROMBOPLASTIN TIME 41.3 seconds 22.5-36.0 H (BEAKER) (test code = 760) PROTHROMBIN TIME/[id number] 15:28:00 Test Item Value Reference Range Interpretation Comments PROTIME (BEAKER) 25.4 seconds 11.9-14.2 H (test code = 759) INR (BEAKER) (test 2.34 See_Comment [Automat ed message] code = 370) The system [employer] generated this result transmitted ref erence range: <=5.90. The reference range was not used to int erpret this result as normal/abnormal . RECOMMENDED COUMADIN/WARFARIN INR THERAPY RANGESSTANDARD DOSE: 2.0 - 3.0 Includes: PROPHYLAXIS forvenous thrombosis, systemic embolization; TREATMENT for venous thrombosis and/or pulmonary embolus.HIGH RISK: Target INR is 2.5-3.5 for patients with mechanical heart valves.PLATELET [id number] 15:21:00 Test Item Value Reference Range Interpretation Comments PLATELET COUNT (BEAKER) (test 224 K/CU MM 150-450 code = 756) Automation Engineering Technician ID - [id number] AND [id number] 14:15:00 Test Item Value Reference Range Interpretation Comments HEMOGLOBIN (BEAKER) (test code = 7.2 GM/DL 13.7-17.5 L 410) HEMATOCRIT (BEAKER) (test code = 22.4 % 40.1-51.0 L 411) Automation Engineering Technician ID - [id number] 13:21:00 Test Item Value Reference Range Interpretation Comments POTASSIUM (BEAKER) 4.0 meq/L 3.5-5.1 Specimen slightly (test code = 379) hemolyzed POCT-GLUCOSE [id number] 12:43:00 Test Item Value Reference Range Interpretation Comments POC-GLUCOSE METER 84 mg/dL 70-110 : TESTED Elias Dominguez [facility] 6720 (BEAKER) (test code = [place], 1538) [address]: Automation Engineering Technician/Techni won ID = [id number] for RONAL BROCK RAD, ABDOMEN/KUB, 1 VIEW [id number] 12:27:00Reason for exam:->DHT placementShould this be performed at the bedside?->Yes [facility] 1975 Sex: [...] Robert MDReportVerified Date/Time: 01/17/2021 12:27:08 Reading Location: [facility] Radiology Reading Room [id number] 11:30:00 Test Item Value Reference Range Interpretation Comments MAGNESIUM (BEAKER) 2.0 mg/dL 1.6-2.6 Specimen slightly (test code = 627) hemolyzed [id number] 11:25:00 Test Item Value Reference Range Interpretation Comments POTASSIUM (BEAKER) 4.1 meq/L 3.5-5.1 Specimen slightly (test code = 379) hemolyzed [id number] 11:25:00 Test Item Value Reference Range Interpretation Comments PHOSPHORUS (BEAKER) 6.1 mg/dL 2.3-4.7 H Specimen slightly (test code = 604) hemolyzed LACTIC ACID, [id number] 09:47:00 Test Item Value Reference Range Interpretation Comments LACTATE BLOOD ARTERIAL (2) 1.6 mmol/L 0.5-2.2 (BEAKER) (test code = 2874) RAD, CHEST, 1 VIEW, NON [id number] 09:17:00Reason for exam:->chest tubes, s/p cardiac surgeryShould this be performed at the bedside?->Yes [facility] : 1975 Sex: MFINAL REPORT [...] MDReport Verified Date/Time: 01/17/2021 09:17:24 Reading Location: [facility] Radiology Reading Room HEPATIC FUNCTION PANEL 2021-01-17 [...] (test code = 347) hemolyzed COMPREHENSIVE METABOLIC [id number] 08:52:00 Test Item Value Reference Range Interpretation [...] S NOT APPLICABLE FOR DIALYSIS PATIEN TS. [id number] 08:45:00 Test Item Value Reference Range Interpretation Comments MAGNESIUM (BEAKER) 2.1 mg/dL 1.6-2.6 Specimen slightly (test code = 627) hemolyzed HEMOGLOBIN AND [id number] 08:12:00 Test Item Value Reference Range Interpretation Comments HEMOGLOBIN (BEAKER) (test code = 7.6 GM/DL 13.7-17.5 L 410) HEMATOCRIT (BEAKER) (test code = 23.3 % 40.1-51.0 L 411) Automation Engineering Technician ID - [id number], [id number] 08:04:00 Test Item Value Reference Range Interpretation Comments PH ARTERIAL (BEAKER) (test code = 383) 7.49 7.35-7.45 H CBC W/PLT COUNT & AUTO [id number] 06:06:00 Test Item Value Reference Range Interpretation [...] CONCENTRATION Adequate (CELLAVISION)(BEAKER) (test code = 3438) Automation Engineering Technician ID - Imelda comments: Slide comments:[id number] 05:18:00 Test Item Value Reference Range Interpretation Comments PARTIAL THROMBOPLASTIN TIME 44.6 seconds 22.5-36.0 H (BEAKER) (test code = 760) PROTHROMBIN TIME/[id number] 05:17:00 Test Item Value Reference Range Interpretation Comments PROTIME (BEAKER) 30.0 seconds 11.9-14.2 H (test code = 759) INR (BEAKER) (test 2.89 See_Comment [Automat ed message] code = 370) The system [employer] generated this result transmitted ref erence range: <=5.90. The reference range was not used to int erpret this result as normal/abnormal . RECOMMENDED COUMADIN/WARFARIN INR THERAPY RANGESSTANDARD DOSE: 2.0 - 3.0 Includes: PROPHYLAXIS forvenous thrombosis, systemic embolization; TREATMENT for venous thrombosis and/or pulmonary embolus.HIGH RISK: Target INR is 2.5-3.5 for patients with mechanical heart valves.BLOOD GAS, [id number] 04:54:00 Test Item Value Reference Range Interpretation [...] (BEAKER) (test code = 1819) 80.0 POCT-GLUCOSE [id number] 03:44:00 Test Item Value Reference Range Interpretation Comments POC-GLUCOSE METER 81 mg/dL 70-110 : TESTED A T [facility] 6720 (BEAKER) (test code = NORM [place], 1538) [address]: Automation Engineering Technician/Techni won ID = [id number] for MESERET ETTSeptember [id number] 02:05:00 Test Item Value Reference Range Interpretation Comments PHOSPHORUS (BEAKER) 10.0 mg/dL 2.3-4.7 HH Specimen slightly (test code = 604) hemolyzed [id number] 01:53:00 Test Item Value Reference Range Interpretation Comments MAGNESIUM (BEAKER) 2.4 mg/dL 1.6-2.6 Specimen slightly (test code = 627) hemolyzed [id number] 01:53:00 Test Item Value Reference Range Interpretation Comments POTASSIUM (BEAKER) 4.3 meq/L 3.5-5.1 Specimen slightly (test code = 379) hemolyzed [id number] 01:40:00 Test Item Value Reference Range Interpretation Comments POTASSIUM (BEAKER) 4.3 meq/L 3.5-5.1 Specimen slightly (test code = 379) hemolyzed LACTIC ACID, [id number] 01:14:00 Test Item Value Reference Range Interpretation Comments LACTATE BLOOD 6.4 mmol/L 0.5-2.2 HH Specimen sligh tly ARTERIAL (2) (BEAKER) hemoly zed (test code = 2874) Automation Engineering Technician ID - DBLACTIC ACID, [id number] 00:55:00 Test Item Value Reference Range Interpretation Comments LACTATE BLOOD 2.6 mmol/L 0.5-2.2 H Specimen sligh tly ARTERIAL (2) (BEAKER) hemoly zed (test code = 2874) [id number] 23:45:00 Test Item Value Reference Range Interpretation Comments FIBRINOGEN LEVEL (BEAKER) (test 261 mg/dl 225-434 code = 658) [id number] 23:45:00 Test Item Value Reference Range Interpretation Comments PARTIAL THROMBOPLASTIN TIME 49.5 seconds 22.5-36.0 H (BEAKER) (test code = 760) PROTHROMBIN TIME/[id number] 23:44:00 Test Item Value Reference Range Interpretation Comments PROTIME (BEAKER) 31.2 seconds 11.9-14.2 H (test code = 759) INR (BEAKER) (test 3.04 See_Comment [Automat ed message] code = 370) The system [employer] generated this result transmitted ref erence range: <=5.90. The reference range was not used to int erpret this result as normal/abnormal . RECOMMENDED COUMADIN/WARFARIN INR THERAPY RANGESSTANDARD DOSE: 2.0 - 3.0 Includes: PROPHYLAXIS forvenous thrombosis, systemic embolization; TREATMENT for venous thrombosis and/or pulmonary embolus.HIGH RISK: Target INR is 2.5-3.5 for patients with mechanical heart valves.POCT-GLUCOSE [id number] 22:21:00 Test Item Value Reference Range Interpretation Comments POC-GLUCOSE METER 96 mg/dL 70-110 : TESTED A T [facility] 6720 (BEAKER) (test code = [place], 1538) [address]: Automation Engineering Technician/Techni won ID = [id number] for MESERET ETT, SEPTEMBER PT/[id number] 21:19:00 Test Item Value Reference Range Interpretation [...] for patients with mechanical heart valves.HEMOGLOBIN AND [id number] 20:53:00 Test Item Value Reference Range Interpretation Comments HEMOGLOBIN (BEAKER) (test code = 7.1 GM/DL 13.7-17.5 L 410) HEMATOCRIT (BEAKER) (test code = 22.1 % 40.1-51.0 L 411) Automation Engineering Technician ID - [id number], [id number] 20:47:00 Test Item Value Reference Range Interpretation Comments PH ARTERIAL (BEAKER) (test code = 383) 7.45 7.35-7.45 BLOOD GAS, [id number] 17:08:00 Test Item Value Reference Range Interpretation [...] Study 01/16/2021 SR. Gender Male Visit Number [id number] Race Unknown Room Number C823 Number Date of 1975 Referring Physician Zakia Sarah Age 45 year(s) Floorleader Estela Mann [facility] Supervisory Clerk Olvin Butler Interpreting Stan Murrell Physician Procedure [...] TR Velocity: 2.61 m/s TR Gradient: 27.15 mmHgMission Bay campus2D Echo W/Doppler(CW/PW/Color)2021-01-16 16:58:48Ejection FractionSLEH ECHO HEARTLAB MKCKESSON CPACSInterface, External Ris In - 01/16/2021 4:59 PM CDTTransthoracic Echocardiography Report (TTE) Demographics Patient Name CROW KAUR Date of Study 01/16/2021 SR. Gender Male Visit Number [id number] Race Unknown Room Number C823 Number Date of 1975 Referring Physician Zakia Sarah Age 45 year(s) Floorleader Estela Mann [facility] Supervisory Clerk Olvin Butler Interpreting Physician YUNIER Carter Procedure [...] TR Velocity: 2.61 m/s TR Gradient: 27.15 mmHgMission Bay campus2D Echo W/Doppler(CW/PW/Color)2021-01-16 16:58:48Ejection FractionSLEH ECHO HEARTLAB MKCKESSON CPACSInterface, External Ris In - 01/16/2021 4:59 PM CDTTransthoracic Echocardiography Report (TTE) Demographics Patient Name CROW KAUR Date of Study 01/16/2021 SR. Gender Male Visit Number [id number] Race Unknown Room Number C823 Number Date of 1975 Referring Physician Zakia Sarah Age 45 year(s) Floorleader Estela Mann [facility] Supervisory Clerk Olvin Butler Interpreting Stan Murrell, Physician Procedure [...] TR Velocity: 2.61 m/s TR Gradient: 27.15 mmHgMission Bay campusRAD, CHEST, 1 VIEW, NON [id number] 16:44:00Reason for exam:->s/p left pleural CTShould this be performed at the bedside?->Yes [facility] : 1975 Sex: MFINAL REPORT [...] Delano Castro VerifiedDate/Time: 01/16/2021 16:44:51 Reading Location: [address] Transitional Reading Room [facility] signed by: DELANO CASTRO MD on 01/16/2021 04:44 PMRAD, CHEST, 1 VIEW, NON [id number] 16:24:00Reason for exam:->confirm ET placement, and post ROSC evaluationShould this be performed at the bedside?->Yes [facility] : 1975 Sex: MFINAL REPORT [...] Castro Verified Date/Time: 01/16/2021 16:24:00 Reading Location: [facility] BLOOD GAS, [id number] 15:46:00 Test Item Value Reference Range Interpretation [...] CONCENTRATION Adequate (CELLAVISION)(BEAKER) (test code = 3438) Automation Engineering Technician ID - Maryan Phillips comments: Slide comments:PT/[id number] 15:43:00 Test Item Value Reference Range Interpretation [...] is 2.5-3.5 for patients with mechanical heart valves.[id number] 15:39:00 Test Item Value Reference Range Interpretation Comments PHOSPHORUS (BEAKER) (test code = 12.0 mg/dL 2.3-4.7 HH 604) Automation Engineering Technician ID - [id number] 15:38:00 Test Item Value Reference Range Interpretation Comments MAGNESIUM (BEAKER) (test code = 3.0 mg/dL 1.6-2.6 H 627) Automation Engineering Technician ID - DBCOMPREHENSIVE METABOLIC [id number] 15:38:00 Test Item Value Reference Range Interpretation [...] S NOT APPLICABLE FOR DIALYSIS PATIEN TS. Automation Engineering Technician ID - DBLACTIC ACID, [id number] 15:33:00 Test Item Value Reference Range Interpretation Comments LACTATE BLOOD ARTERIAL (2) 10.2 mmol/L 0.5-2.2 HH (BEAKER) (test code = 2874) Automation Engineering Technician ID - DBCBC W/PLT COUNT & AUTO [id number] 15:20:00 Test Item Value Reference Range Interpretation [...] (BEAKER) (test code = 413) BLOOD GAS, [id number] 15:19:00 Test Item Value Reference Range Interpretation [...] (BEAKER) 37.0 (test code = 1818) CALCIUM, [id number] 15:19:00 Test Item Value Reference Range Interpretation Comments CALCIUM IONIZED (BEAKER) (test 1.35 mmol/L 1.12-1.27 H code = 698) PH, BLOOD (BEAKER) (test code = 7.26 1810) POC-Blood gases, [id number] 14:45:00 Test Item Value Reference Range Interpretation [...] tomated message] code = 1838) The system [employer] generated this result transmit ari reference range : 80.0 - 90.0 mm Hg. The reference r kevin was not used to interpret this result as normal/abnormal . SO2, Arterial-POC (test 96.0 % 96-97 code = 1839) HCO3, Arterilal-POC 18.6 meq/L 21-29 L (test code = 1840) BE, Arterial-POC (test -9.0 meq/L -2-3 L : HALIMA ARI AT [facility] code = 1841) [address] [place], [address]: Automation Engineering Technician/Techni won ID = [id number] for MIGUEL GANDARA Lab Interpretation Abnormal (test code = 50086-0) [facility]-[id number] 14:45:00 Test Item Value Reference Range Interpretation Comments POC-Potassium (test code 5.7 meq/L 3.6-5.5 H : T ESTED AT [facility] = 1540) [address] [place] [address], [address]: Automation Engineering Technician/Techni won ID = [id number] for IBAY, MIGUEL Lab Interpretation (test Abnormal code = 38733-3) [facility]-[id number] 14:45:00 Test Item Value Reference Range Interpretation Comments POC-Sodium (test code = 134 meq/L 135-148 L : TE STED AT [facility] 1542) [address] [place] [address], [address]: Automation Engineering Technician/Techni won ID = [id number] for IBAY, MIGUEL Lab Interpretation (test Abnormal code = 64519-5) [facility]-[id number] 14:45:00 Test Item Value Reference Range Interpretation Comments POC-Glucose (test code = 264 mg/dL 70-110 H : T ESTED AT [facility] 1855) [address] [place] [address], 7[address]: Automation Engineering Technician/Techni won ID = [id number] for IBAY, MIGUEL Lab Interpretation (test Abnormal code = 99918-1) [facility]-[id number] 14:45:00 Test Item Value Reference Range Interpretation Comments POC-Hemoglobin (test code 6.5 g/dL 13-16.8 L : TESTED AT [facility] = 1856) [address] [place] [address], [address]: Automation Engineering Technician/Techni won ID = [id number] for IBAY, MIGUEL Lab Interpretation (test Abnormal code = 75455-0) [facility]-[id number] 14:45:00 Test Item Value Reference Range Interpretation Comments POC-Hematocrit (test code 19 % 40-50 L : = 1857) Automation Engineering Technician/Techni won ID = [id number] for IBAY, MIGUEL Lab Interpretation (test Abnormal code = 06287-1) [facility]-Blood gases, [id number] 14:45:00 Test Item Value Reference Range Interpretation [...] tomated message] code = 1838) The system [employer] h generated this result transmit ari reference range : 80.0 - 90.0 mm Hg. The reference r kevin was not used to interpret this result as normal/abnormal . SO2, Arterial-POC (test 96.0 % 96-97 code = 1839) HCO3, Arterilal-POC 18.6 meq/L 21-29 L (test code = 1840) BE, Arterial-POC (test -9.0 meq/L -2-3 L : [facility] AT [facility] code = 1841) [address] [place] [address], [address]: Automation Engineering Technician/Techni won ID = [id number] for IBAY, MIGUEL Lab Interpretation Abnormal (test code = 62281-7) [facility]-Hbwyyrknq6290-07-35 14:45:00 Test Item Value Reference Range Interpretation Comments POC-Potassium (test code 5.7 meq/L 3.6-5.5 H : T ESTED AT [facility] = 1540) [address] [place] [address], [address]: Automation Engineering Technician/Techni won ID = [id number] for IBAY, MIGUEL Lab Interpretation (test Abnormal code = 97990-6) [facility]-Kicull5879-01-07 14:45:00 Test Item Value Reference Range Interpretation Comments POC-Sodium (test code = 134 meq/L 135-148 L : TE STED AT [facility] 1542) [address] [place] [address], [address]: Automation Engineering Technician/Techni won ID = [id number] for IBAY, MIGUEL Lab Interpretation (test Abnormal code = 06420-8) [facility]-[id number] 14:45:00 Test Item Value Reference Range Interpretation Comments POC-Glucose (test code = 264 mg/dL 70-110 H : T ESTED AT [facility] 1855) [address] [facility], [address]: Automation Engineering Technician/Techni won ID = [id number] for MIGUEL GANDARA Lab Interpretation (test Abnormal code = 78922-3) [facility]-[id number] 14:45:00 Test Item Value Reference Range Interpretation Comments POC-Hemoglobin (test code 6.5 g/dL 13-16.8 L : TESTED AT [facility] = 1856) [address] [facility], [address]: Automation Engineering Technician/Techni won ID = [id number] for BIRGITY MIGUEL Lab Interpretation (test Abnormal code = 03449-4) [facility]-[id number] 14:45:00 Test Item Value Reference Range Interpretation Comments POC-Hematocrit (test code 19 % 40-50 L : = 1857) Automation Engineering Technician/Techni won ID = [id number] for IBAY MIGUEL Lab Interpretation (test Abnormal code = 79595-1) [facility]-Blood gases, [id number] 14:45:00 Test Item Value Reference Range Interpretation [...] meq/L -2-3 L : HALIMA ARI AT [facility] code = 1841) [address] [place], [address]: Automation Engineering Technician/Techni won ID = [id number] for IBAY, MIGUEL Lab Interpretation Abnormal (test code = 42720-4) [facility]-Oowhkkhuf7800-29-07 14:45:00 Test Item Value Reference Range Interpretation Comments POC-Potassium (test code 5.7 meq/L 3.6-5.5 H : T ESTED AT [facility] = 1540) [address] [place] [address], [address]: Automation Engineering Technician/Techni won ID = [id number] for IBAY, MIGUEL Lab Interpretation (test Abnormal code = 02988-0) [facility]-Xvblvt2428-03-68 14:45:00 Test Item Value Reference Range Interpretation Comments POC-Sodium (test code = 134 meq/L 135-148 L : TE STED AT [facility] 1542) [address] [place] [address], [address]: Automation Engineering Technician/Techni won ID = [id number] for IBAY, MIGUEL Lab Interpretation (test Abnormal code = 56942-4) [facility]-[id number] 14:45:00 Test Item Value Reference Range Interpretation Comments POC-Glucose (test code = 264 mg/dL 70-110 H : T ESTED AT [facility] 1855) [address] [place] [address], [address]: Automation Engineering Technician/Techni won ID = [id number] for IBAY, MIGUEL Lab Interpretation (test Abnormal code = 31312-7) [facility]-[id number] 14:45:00 Test Item Value Reference Range Interpretation Comments POC-Hemoglobin (test code 6.5 g/dL 13-16.8 L : TESTED AT [facility] = 1856) [address] [place] [address], [address]: Automation Engineering Technician/Techni won ID = [id number] for IBAY, MIGUEL Lab Interpretation (test Abnormal code = 19798-3) [facility]-[id number] 14:45:00 Test Item Value Reference Range Interpretation Comments POC-Hematocrit (test code 19 % 40-50 L : = 1857) Automation Engineering Technician/Techni won ID = [id number] for IBAY, MIGUEL Lab Interpretation (test Abnormal code = 73212-4) [facility], [id number] 14:45:00 Test Item Value Reference Range Interpretation [...] -9.0 meq/L -2.0-3.0 L : TESTED AT [facility] [address] ARTERIAL-POC [facility], (BEAKER) (test code [address]: = 1841) Automation Engineering Technician/Techni won ID = [id number] for MIGUEL GANDARA GAAY-[id number] 14:45:00 Test Item Value Reference Range Interpretation Comments POC-SODIUM (BEAKER) 134 meq/L 135-148 L : TESTED AT [place] [address] (test code = 1542) [facility], [address]: Automation Engineering Technician/Techni won ID = [id number] for MIGUEL GANDARA [place]QU[place]-[id number] 14:45:00 Test Item Value Reference Range Interpretation Comments POC-POTASSIUM 5.7 meq/L 3.6-5.5 H : TESTED AT [place] [address] (BEAKER) (test code [facility], = 1540) [address]: Automation Engineering Technician/Techni won ID = [id number] for MIGUEL GANDARA OTPX-[id number] 14:45:00 Test Item Value Reference Range Interpretation Comments POC-HEMOGLOBIN 6.5 g/dL 13.0-16.8 L : TESTED AT [facility] 6720 ([facility]) (test code = [place], 1856) [address]: Automation Engineering Technician/Techni won ID = [id number] for MIGUEL GANDARA DUXJ-[id number] 14:45:00 Test Item Value Reference Range Interpretation Comments POC-HEMATOCRIT 19 % 40-50 L : Automation Engineering Technician/Te chnician ID = ([facility]) (test code = 386333 for MIGUEL GANDARA 185) OVRA-[id number] 14:45:00 Test Item Value Reference Range Interpretation Comments POC-GLUCOSE ([facility]) 264 mg/dL 70-110 H : TESTE D AT [facility] 6720 (test code = 1855) SHANNA Lott [facility] [place], [address]: Automation Engineering Technician/Techni won ID = [id number] for MIGUEL GANDARA POCT-GLUCOSE [id number] 14:32:00 Test Item Value Reference Range Interpretation Comments POC-GLUCOSE METER 70 mg/dL 70-110 : TESTED A T [facility] 67[address] ([facility]) (test code = NORM Tenorio [facility], 1538) [address]: Automation Engineering Technician/Techni won ID = [id number] for [facility] POC-Blood gases, [id number] 14:27:00 Test Item Value Reference Range Interpretation Comments Temp. Celsius-POC (test code = 1834) FIO2-POC (test code = 1835) pH, Venous-POC (test 7.225 7.320-7.420 L : TESTE D AT [facility] code = 1842) [address] [facility] [place] [address] PCO2, Venous-POC (test 57.9 See_Comment H If [...] meq/L -2-3 L : code = 1847) Automation Engineering Technician/Techni won ID = [id number] for MIGUEL GANDARA Lab Interpretation Abnormal (test code = 27360-6) [facility]-Blood gases, [id number] 14:27:00 Test Item Value Reference Range Interpretation Comments Temp. Celsius-POC (test code = 1834) FIO2-POC (test code = 1835) pH, Venous-POC (test 7.225 7.320-7.420 L : TESTE D AT [facility] code = 1842) [address] [place], [address] PCO2, Venous-POC (test 57.9 See_Comment H If [...] mated message] code = 1844) The system [employer] generated this result transmit ari reference range : 25.0 - 40.0 mm Hg. The reference r kevin was not used to interpret this result as normal/abnormal . SO2, Venous-POC (test 35.0 % 40-70 L code = 1845) HCO3, Venous-POC (test 24.0 meq/L 21-29 code = 1846) BE, Venous-POC (test -4.0 meq/L -2-3 L : code = 1847) Automation Engineering Technician/Techni won ID = [id number] for MIGUEL GANDARA Lab Interpretation Abnormal (test code = 64319-8) [facility]-Blood gases, [id number] 14:27:00 Test Item Value Reference Range Interpretation Comments Temp. Celsius-POC (test code = 1834) FIO2-POC (test code = 1835) pH, Venous-POC (test 7.225 7.320-7.420 L : TESTE D AT [facility] code = 1842) [address] [place], [address] PCO2, Venous-POC (test 57.9 See_Comment H If [...] mated message] code = 1844) The system [employer] h generated this result transmit ari reference range : 25.0 - 40.0 mm Hg. The reference r kevin was not used to interpret this result as normal/abnormal . SO2, Venous-POC (test 35.0 % 40-70 L code = 1845) HCO3, Venous-POC (test 24.0 meq/L 21-29 code = 1846) BE, Venous-POC (test -4.0 meq/L -2-3 L : code = 1847) Automation Engineering Technician/Techni won ID = [id number] for MIGUEL GANDARA Lab Interpretation Abnormal (test code = 83738-8) [facility], [id number] 14:27:00 Test Item Value Reference Range Interpretation Comments TEMP, CELSIUS-POC (BEAKER) (test code = 1834) FIO2-POC (BEAKER) (test code = 1835) PH, VENOUS-POC 7.225 7.320-7.420 L : TESTED AT [facility] 6720 (BEAKER) (test code [facility], = 1842) [address] PCO2, VENOUS-POC 57.9 mm Hg 41.0-51.0 H If pO2 is > 180, pCO2 may (BEAKER) (test code be posit ively biased = 1843) PO2, VENOUS-POC 26.0 mm Hg 25.0-40.0 (BEAKER) (test code = 1844) SO2, VENOUS-POC 35.0 % 40.0-70.0 L (BEAKER) (test code = 1845) HCO3, VENOUS-POC 24.0 meq/L 21.0-29.0 (BEAKER) (test code = 1846) BASE EXCESS, -4.0 meq/L -2.0-3.0 L : Automation Engineering Technician/Tech nician ID VENOUS-POC ([facility]) = [id number] for MIGUEL GANDARA (test code = 1847) [id number] 14:27:00 Test Item Value Reference Range Interpretation Comments [facility] 138 meq/L 135-148 : TESTED AT [place] [address] (test code = 1542) [facility] [address]: Automation Engineering Technician/Techni won ID = [id number] for MIGUEL GANDARA [id number] 14:27:00 Test Item Value Reference Range Interpretation Comments POC-POTASSIUM 6.2 meq/L 3.6-5.5 HH : TESTED AT [place] [address] [facility] (test code [facility], = 1540) [address]: Automation Engineering Technician/Techni won ID = [id number] for MIGUEL GANDARA [id number] 14:27:00 Test Item Value Reference Range Interpretation Comments POC-HEMOGLOBIN 6.5 g/dL 13.0-16.8 L : TESTED AT [place] [address] (BEAKER) (test code = NORM [place] [facility], 1856) [address]: Automation Engineering Technician/Techni won ID = [id number] for MIGUEL GANDARA [id number] 14:27:00 Test Item Value Reference Range Interpretation Comments POC-HEMATOCRIT 19 % 40-50 L : Automation Engineering Technician/Te chnician ID = ([facility]) (test code = 496914 for MIGUEL GANDARA 1857) [id number] 14:27:00 Test Item Value Reference Range Interpretation Comments POC-GLUCOSE ([facility]) 43 mg/dL 70-110 L : TESTE D AT [place] [address] (test code = 1855) [facility], [address]: Automation Engineering Technician/Techni won ID = [id number] for MIGUEL GANDARA CBC W/PLT COUNT & AUTO [id number] 11:27:00 Test Item Value Reference Range Interpretation Comments WHITE BLOOD CELL COUNT ([facility]) 17.2 K/ L 3.5-10.5 H (test code = 775) RED BLOOD CELL COUNT ([facility]) 2.89 M/ L 4.63-6.08 L (test code [...] CONCENTRATION Adequate (CELLAVISION)(BEAKER) (test code = 3438) Automation Engineering Technician ID - Loren Sethi comments: Slide comments:SPUTUM CULTURE + GRAM [id number] 08:40:00 Test Item Value Reference Range Interpretation [...] epithelial RESULT cells (BEAKER) (test code = 202797) GRAM STAIN No organisms seen RESULT (BEAKER) (test code = 975633) <1+ Normal respiratory mendy presentBRONCHIAL CULTURE + GRAM [id number] 08:39:00 Test Item Value Reference Interpretation Comments [...] No organisms seen (BEAKER) (test code = 671844) 1+ Normal respiratory mendy [id number] 07:27:00 Test Item Value Reference Range Interpretation Comments PARTIAL THROMBOPLASTIN TIME 77.8 seconds 22.5-36.0 H (BEAKER) (test code = 760) [id number] 06:36:00 Test Item Value Reference Range Interpretation Comments PARTIAL THROMBOPLASTIN TIME 65.8 seconds 22.5-36.0 H (BEAKER) (test code = 760) PROTHROMBIN [id number] 06:35:00 Test Item Value Reference Range Interpretation Comments PROTIME (BEAKER) 16.1 seconds 11.9-14.2 H (test code = 759) INR (BEAKER) (test 1.31 See_Comment [Automat ed message] code = 370) The system RupeeTimes generated this result transmitted ref erence range: <=5.90. The reference range was not used to int erpret this result as normal/abnormal . RECOMMENDED COUMADIN/WARFARIN INR THERAPY RANGESSTANDARD DOSE: 2.0 - 3.0 Includes: PROPHYLAXIS forvenous thrombosis, systemic embolization; TREATMENT for venous thrombosis and/or pulmonary embolus.HIGH RISK: Target INR is 2.5-3.5 for patients with mechanical heart valves.BASIC METABOLIC [id number] 05:07:00 Test Item Value Reference Range Interpretation [...] S NOT APPLICABLE FOR DIALYSIS PATIEN TS. Automation Engineering Technician ID - [id number] 04:57:00 Test Item Value Reference Range Interpretation Comments MAGNESIUM (BEAKER) (test code = 2.2 mg/dL 1.6-2.6 627) Automation Engineering Technician ID - [id number] 04:57:00 Test Item Value Reference Range Interpretation Comments PHOSPHORUS (BEAKER) (test code = 6.4 mg/dL 2.3-4.7 H 604) Automation Engineering Technician ID - ADMINRAD, CHEST, 1 VIEW, NON [id number] 01:08:00Reason for exam:->chest tubes, s/p cardiac surgeryShould this be performed at the bedside?->[facility] : 1975 Sex: MFINAL REPORT CLINICAL INDICATION: Postop Comparison: 01/15/2021 The ca rdiomediastinal contours are stable. Central pulmonary vascular congestion and bilateral parenchymalopacities are similar to previous. There is no pneumothorax. A left chest tube has been removed. A left IJ CVC remains in place. Signed: Domingo Duron MDReport Verified Date/Time: 01/16/2021 01:08:13 POCT- GLUCOSE [id number] 00:14:00 Test Item Value Reference Range Interpretation Comments POC-GLUCOSE METER 96 mg/dL 70-110 : TESTED A T [facility] 6720 (TAMARA) (test code = N[place], 1538) [address]: Automation Engineering Technician/Techni won ID = [id number] for CRESCENCIO PRIETO [id number] 23:26:00 Test Item Value Reference Range Interpretation Comments PARTIAL THROMBOPLASTIN TIME 54.3 seconds 22.5-36.0 H (TAMARA) (test code = 760) Lipid [id number] 22:53:00 Test Item Value Reference Range Interpretation Comments Triglycerides (test 84 mg/dL code = 2571-8) Cholesterol (test code 111 mg/dL = 2093-3) HDL (test code = 25 mg/dL 5-9) LDL Calculated (test 69 mg/dL code = 01862-3) CARLEY (test code = CARLEY) Triglyceride Reference Range: Low Risk <150 Borderline 150-199 High Risk 200-499 Very High Risk >=500 Cholesterol Reference Range: Low Risk <200 Borderline 200-239 High Risk >240 HDL Cholesterol Reference Range: Low Risk >=60 High Risk <40 LDL Cholesterol Reference Range: Optimal <100 Near Optimal 100-129 Borderline 130-159 High 160-189 Very High >=190 Automation Engineering Technician ID - [facility] [id number] 22:53:00 Test Item Value Reference Range Interpretation Comments Triglycerides (test 84 mg/dL code = 2571-8) Cholesterol (test code 111 mg/dL = 2093-3) HDL (test code = 25 mg/dL 2084-9) LDL Calculated (test 69 mg/dL code = 34740-3) CARLEY (test code = CARLEY) Triglyceride Reference Range: Low Risk <150 Borderline 150-199 High Risk 200-499 Very High Risk >=500 Cholesterol Reference Range: Low Risk <200 Borderline 200-239 High Risk >240 HDL Cholesterol Reference Range: Low Risk >=60 High Risk <40 LDL Cholesterol Reference Range: Optimal <100 Near Optimal 100-129 Borderline 130-159 High 160-189 Very High >=190 Automation Engineering Technician ID - DB [facility] campusLipid [id number] 22:53:00 Test Item Value Reference Range Interpretation Comments Triglycerides (test 84 mg/dL code = 2571-8) Cholesterol (test code 111 mg/dL = 2093-3) HDL (test code = 25 mg/dL 2085-02) LDL Calculated (test 69 mg/dL code = 84874-1) CARLEY (test code = CARLEY) Triglyceride Reference Range: Low Risk <150 Borderline 150-199 High Risk 200-499 Very High Risk >=500 Cholesterol Reference Range: Low Risk <200 Borderline 200-239 High Risk >240 HDL Cholesterol Reference Range: Low Risk >=60 High Risk <40 LDL Cholesterol Reference Range: Optimal <100 Near Optimal 100-129 Borderline 130-159 High 160-189 Very High >=190 Automation Engineering Technician ID - DB [facility] campusLIPID [id number] 22:53:00 Test Item Value Reference Range Interpretation [...] Borderline 130-159 High 160-189 Very High >=190 Automation Engineering Technician ID - DBBLOOD [id number] 19:01:00 Test Item Value Reference Range Interpretation Comments CULTURE (BEAKER) (test No growth in 5 days code = 1095) BLOOD [id number] 18:01:00 Test Item Value Reference Range Interpretation Comments CULTURE (BEAKER) (test No growth in 5 days code = 1095) POCT-GLUCOSE [id number] 12:26:00 Test Item Value Reference Range Interpretation Comments POC-GLUCOSE METER 101 mg/dL 70-110 : TESTED A T [facility] 6720 (BEAKER) (test code = [place], 1538) [address]: Automation Engineering Technician/Techni won ID = [id number] for Paige Russell [id number] 09:21:00 Test Item Value Reference Range Interpretation Comments PARTIAL THROMBOPLASTIN TIME 35.0 seconds 22.5-36.0 (BEAKER) (test code = 760) RAD, CHEST, 1 VIEW, NON [id number] 09:14:00Reason for exam:->chest tubes, s/p cardiac surgeryShould this be performed at the bedside?->Yes [facility] : 1975 Sex: MFINAL REPORT RAD, CHEST, 1 VIEW, NON DEPT INDICATION: chest tubes, s/p cardiac surgery COMPARISON: Prior day's exam FINDINGS: Portable frontal view of the chest. IMPRESSION: Support Lines: Stable. Lungs and pleura: Unchanged airspace and interstitial opacities. No pneumothorax.Heart and mediastinum: Stable contours. Stable surgical changes.Additional findings: None.Signed: JR Tate Robert MDReport Verified Date/Time: 01/15/2021 09:14:18 Reading Location:[address] Neuro Reading Room POCT-GLUCOSE [id number] 08:23:00 Test Item Value Reference Range Interpretation Comments POC-GLUCOSE METER 104 mg/dL 70-110 : TESTED A T [facility] 6720 (BEAKER) (test code = [place], 1538) [address]: Automation Engineering Technician/Techni won ID = [id number] for Da vis, Paige CBC W/PLT COUNT & AUTO [id number] 06:50:00 Test Item Value Reference Range Interpretation [...] CONCENTRATION Adequate (CELLAVISION)(BEAKER) (test code = 3438) Automation Engineering Technician ID - Dariela OverholtUser comments: Slide comments:[id number] 04:17:00 Test Item Value Reference Range Interpretation Comments MAGNESIUM (BEAKER) (test code = 2.1 mg/dL 1.6-2.6 627) Automation Engineering Technician ID Doretha COOPER WCOMPREHENSIVE METABOLIC [id number] 04:17:00 Test Item Value Reference Range Interpretation [...] S NOT APPLICABLE FOR DIALYSIS PATIEN TS. Automation Engineering Technician ID Doretha COOPER WPROTHROMBIN TIME/[id number] 03:53:00 Test Item Value Reference Range Interpretation Comments PROTIME (BEAKER) 15.1 seconds 11.9-14.2 H (test code = 759) INR (BEAKER) (test 1.21 See_Comment [Automat ed message] code = 370) The system [employer] generated this result transmitted ref erence range: <=5.90. The reference range was not used to int erpret this result as normal/abnormal . RECOMMENDED COUMADIN/WARFARIN INR THERAPY RANGESSTANDARD DOSE: 2.0 - 3.0 Includes: PROPHYLAXIS forvenous thrombosis, systemic embolization; TREATMENT for venous thrombosis and/or pulmonary embolus.HIGH RISK: Target INR is 2.5-3.5 for patients with mechanical heart valves.POCT-GLUCOSE [id number] 21:26:00 Test Item Value Reference Range Interpretation Comments POC-GLUCOSE METER 77 mg/dL 70-110 : Notified RN/MD: TESTED (BEAKER) (test code = AT [facility] [address] [facility] 1538) [facility], [address]: Automation Engineering Technician/Techni won ID = [id number] for Tiago calvo (contract), [place] PROTHROMBIN TIME/[id number] 13:30:00 Test Item Value Reference Range Interpretation Comments PROTIME (BEAKER) 15.3 seconds 11.9-14.2 H (test code = 759) INR (BEAKER) (test 1.23 See_Comment [Automat ed message] code = 370) The system [employer] generated this result transmitted ref erence range: <=5.90. The reference range was not used to int erpret this result as normal/abnormal . RECOMMENDED COUMADIN/WARFARIN INR THERAPY RANGESSTANDARD DOSE: 2.0 - 3.0 Includes: PROPHYLAXIS forvenous thrombosis, systemic embolization; TREATMENT for venous thrombosis and/or pulmonary embolus.HIGH RISK: Target INR is 2.5-3.5 for patients with mechanical heart valves.Hepatitis B surface [id number] 11:35:00 Test Item Value Reference Range Interpretation Comments HBsAg Screen (test code Nonreactive Nonreactive = 5195-3) CARLEY (test code = CARLEY) Specimen is considered negative for HBsAg. Lab Interpretation (test Normal code = 12558-5) [facility]Hepatitis B surface [id number] 11:35:00 Test Item Value Reference Range Interpretation Comments HBsAg Screen (test code Nonreactive Nonreactive = 5195-3) CARLEY (test code = CARLEY) Specimen is considered negative for HBsAg. Lab Interpretation (test Normal code = 18815-1) [facility]Hep[facility] B surface [id number] 11:35:00 Test Item Value Reference Range Interpretation Comments HBsAg Screen (test code Nonreactive Nonreactive = 5195-3) CARLEY (test code = CARLEY) Specimen is considered negative for HBsAg. Lab Interpretation (test Normal code = 67873-8) [facility] B SURFACE [id number] 11:35:00 Test Item Value Reference Range Interpretation Comments HEPATITIS B SURFACE ANTIGEN (2) Nonreactive Nonreactive (BEAKER) (test code = 2585) Specimen is considered negative for HBsAg.SURGICALLY OBTAINED CULTURE + GRAM [id number] 08:16:00 Test Item Value Reference Interpretation Comments [...] No organisms seen (BEAKER) (test code = 748398) CBC W/PLT COUNT & AUTO [id number] 08:08:00 Test Item Value Reference Range Interpretation [...] CONCENTRATION Decreased (CELLAVISION)(BEAKER) (test code = 3438) Automation Engineering Technician ID - Dariela OverholtUser comments: Slide comments:POCT-GLUCOSE METER 2021-01-14 07:33:00 Test Item Value Reference Range Interpretation Comments POC-GLUCOSE METER 103 mg/dL 70-110 : TESTED A T [facility] 6720 (BEAKER) (test code = [place], 1538) [address]: Automation Engineering Technician/Techni won ID = [id number] for Manuelito Chavez RAD, CHEST, 1 VIEW, NON [id number] 05:56:00Reason for exam:->ettShould this be performed at the bedside?->Yes [facility] : 1975 Sex: MFINAL REPORT [...] Re Cantu MDReport Verified Date/Time: 01/14/2021 05:56:32 [id number] 04:21:00 Test Item Value Reference Range Interpretation Comments MAGNESIUM (BEAKER) (test code = 2.3 mg/dL 1.6-2.6 627) Automation Engineering Technician ID - VALDEZ OMPREHENSIVE METABOLIC [id number] 04:05:00 Test Item Value Reference Range Interpretation [...] S NOT APPLICABLE FOR DIALYSIS PATIEN TS. Automation Engineering Technician ID - DBPOCT-GLUCOSE [id number] 03:46:00 Test Item Value Reference Range Interpretation Comments POC-GLUCOSE METER 83 mg/dL 70-110 : TESTED A T [facility] 6720 [facility] (test code = [place], 1538) [address]: Automation Engineering Technician/Techni won ID = [id number] for Manuelito Busby RAD, CHEST, 1 VIEW, NON [id number] 19:37:00Reason for exam:->LIJ HD catheter placementShould this be performed at the bedside?->Yes [facility] : 1975 Sex: MFINAL REPORT [...] Verified Date/Time: 01/13/2021 19:37: 01 Reading Location: [facility] B1 C013W Consult Reading Room Central Line [...] to verify the correct patient, procedure, equipment, integrated logistics support manager and site/side marked as required.Indications: vascular access(dialysis [...] NoneType of anesthesia: NoneGrafts or Implants: NoneCHI St. [facility] CenterCentral Line (HD catheter J-Wire) 2021-01-13 18:52:29Chapo Kennedy [...] to verify the correct patient, procedure, equipment, integrated logistics support manager and site/side marked as required.Indications: vascular access(dialysis [...] dressing appliedAssessment: placement verified by x-rayPatient tolerance: pa marycruz tolerated the procedure well with no immediate complicationsImmediate Post-Procedure Note Date/Time: 01/13/2021 6:58 PMAssistants to the procedure: NonePre-procedure diagnosis: s/p MVRPost-procedure diagnosis: s/p MVRProcedures Performed: Central Line (HD catheter J-Wire)Specimens removed: NoneEstimated blood loss (mL): NoneComplications: NoneType of anesthesia: NoneGrafts or Implants: NoneCH[facility] CenterCentral Line (HD catheter J-Wire) 2021-01-13 18:52:29Chapo Kennedy [...] to verify the correct patient, procedure, equipment, integrated logistics support manager and site/side marked as required.Indications: vascular access(dialysis [...] appliedAssessment: placement verified by x-rayPatient tolerance: sourav marycruz tolerated the procedure well with no immediate complicationsImmediate Post-Procedure Note Date/Time: 01/13/2021 6:58 PMAssistants to the procedure: NonePre-procedure diagnosis: s/p MVRPost-procedure diagnosis: s/p MVRProcedures Performed: Central Line (HD catheter J-Wire)Specimens removed: NoneEstimated blood loss (mL): NoneComplications: NoneType of anesthesia: NoneGrafts or Implants: NoneCHI St. Mary'S Medical CenterPOCT-GLUCOSE [id number] 17:36:00 Test Item Value Reference Range Interpretation Comments POC-GLUCOSE METER 100 mg/dL 70-110 : TESTED A T [facility] 6720 (BEAKER) (test code = NORM [place] [facility], 1538) [address]: Automation Engineering Technician/Techni won ID = [id number] for NICK FONSECAABRAN STERLING BASIC METABOLIC [id number] 15:58:00 Test Item Value Reference Range Interpretation [...] S NOT APPLICABLE FOR DIALYSIS PATIEN TS. Automation Engineering Technician ID - [id number] 15:56:00 Test Item Value Reference Range Interpretation Comments MAGNESIUM (BEAKER) (test code = 2.2 mg/dL 1.6-2.6 627) Automation Engineering Technician ID - DBBLOOD GAS, [id number] 15:43:00 Test Item Value Reference Range Interpretation [...] FIO2 (BEAKER) (test code = 1819) 40.0 [id number] 12:57:00 Test Item Value Reference Range Interpretation Comments POTASSIUM (BEAKER) (test code = 3.9 meq/L 3.5-5.1 379) Automation Engineering Technician ID - VIRGILIO MBLOOD GAS, [id number] 12:14:00 Test Item Value Reference Range Interpretation [...] (BEAKER) (test code = 1819) 40.0 POCT-GLUCOSE [id number] 12:04:00 Test Item Value Reference Range Interpretation Comments POC-GLUCOSE METER 105 mg/dL 70-110 : TESTED A T [facility] 6720 (BEAKER) (test code = [place], 1538) [address]: Automation Engineering Technician/Techni won ID = [id number] for DU ABRAN ESPANA [id number] 09:59:00 Test Item Value Reference Range Interpretation Comments MAGNESIUM (BEAKER) (test code = 2.2 mg/dL 1.6-2.6 627) Automation Engineering Technician ID - [id number] 09:59:00 Test Item Value Reference Range Interpretation Comments PHOSPHORUS (BEAKER) (test code = 4.6 mg/dL 2.3-4.7 604) Automation Engineering Technician ID - [id number] 09:59:00 Test Item Value Reference Range Interpretation Comments POTASSIUM (BEAKER) (test code = 3.7 meq/L 3.5-5.1 379) Automation Engineering Technician ID - BSGLUCOSE-STAT [id number] 09:38:00 Test Item Value Reference Range Interpretation Comments GLUCOSE RANDOM (BEAKER) (test code 119 mg/dL 70-110 H = 652) HGB/HCT (H&H) - STAT [id number] 09:38:00 Test Item Value Reference Range Interpretation Comments HEMOGLOBIN (BEAKER) (test code = 8.3 GM/DL 13.0-16.8 L 410) HEMATOCRIT (BEAKER) (test code = 24.0 % 40.0-50.0 L 411) POTASSIUM-STAT [id number] 09:38:00 Test Item Value Reference Range Interpretation Comments POTASSIUM (BEAKER) (test code = 3.4 meq/L 3.6-5.5 L 379) BLOOD GAS, [id number] 09:37:00 Test Item Value Reference Range Interpretation [...] (test code = 1819) 40.0 SODIUM NA-STAT [id number] 09:34:00 Test Item Value Reference Range Interpretation Comments SODIUM (BEAKER) (test code = 381) 135 meq/L 136-145 L SPUTUM CULTURE + GRAM [id number] 08:30:00 Test Item Value Reference Interpretation Comments [...] 5-10 epithelial (BEAKER) (test code = cells 920501) GRAM STAIN RESULT No organisms seen (BEAKER) (test code = 041158) <1+ Normal respiratory mendy presentCBC W/PLT COUNT [...] CONCENTRATION Decreased (CELLAVISION)(BEAKER) (test code = 3438) Automation Engineering Technician ID - Sun Menendez comments: Slide comments:RAD, CHEST, 1 VIEW, NON [id number] 07:21:00Reason for exam:->ettShould this be performed at the bedside?->[facility] : 1975 Sex: MFINAL REPORT RAD, CHEST, 1 VIEW, NON DEPT INDICATION: ett COMPARISON: Prior day's exam FINDINGS: Portable frontal view of the chest. IMPRESSION: Support Lines: Stable. Lungs and pleura: No new consolidation. No pneumothorax.Heart and mediastinum: Stable contours. Stable surgical changes.Additional findings: None. Signed: JR Bebeto, Taye FRAGAepting Verified Date/Time: 01/13/2021 07:21:00 Reading Location: [facility] Radiology Reading Room COMPREHENSIVE METABOLIC [id number] 04:58:00 Test Item Value Reference Range Interpretation [...] S NOT APPLICABLE FOR DIALYSIS PATIEN TS. Automation Engineering Technician ID - LINA [id number] 04:46:00 Test Item Value Reference Range Interpretation Comments MAGNESIUM (BEAKER) (test code = 2.2 mg/dL 1.6-2.6 627) Automation Engineering Technician ID - LINA [id number] 04:46:00 Test Item Value Reference Range Interpretation Comments PHOSPHORUS (BEAKER) (test code = 4.3 mg/dL 2.3-4.7 604) Automation Engineering Technician ID - LINA LBLOOD GAS, [id number] 04:11:00 Test Item Value Reference Range Interpretation [...] FIO2 (BEAKER) (test code = 1819) 40.0 [id number] 21:46:00 Test Item Value Reference Range Interpretation Comments MAGNESIUM (BEAKER) (test code = 2.3 mg/dL 1.6-2.6 627) Automation Engineering Technician ID - [id number] 21:46:00 Test Item Value Reference Range Interpretation Comments PHOSPHORUS (BEAKER) (test code = 4.3 mg/dL 2.3-4.7 604) Automation Engineering Technician ID - [id number] 21:46:00 Test Item Value Reference Range Interpretation Comments POTASSIUM (BEAKER) (test code = 4.2 meq/L 3.5-5.1 379) Automation Engineering Technician ID - BSPH, [id number] 21:28:00 Test Item Value Reference Range Interpretation Comments PH ARTERIAL (BEAKER) (test code = 383) 7.46 7.35-7.45 H BASIC METABOLIC [id number] 15:47:00 Test Item Value Reference Range Interpretation [...] S NOT APPLICABLE FOR DIALYSIS PATIEN TS. Automation Engineering Technician ID - VALDEZ [id number] 15:39:00 Test Item Value Reference Range Interpretation Comments MAGNESIUM (BEAKER) (test code = 2.4 mg/dL 1.6-2.6 627) Automation Engineering Technician ID - VALDEZ [id number] 15:39:00 Test Item Value Reference Range Interpretation Comments PHOSPHORUS (BEAKER) (test code = 5.1 mg/dL 2.3-4.7 H 604) Automation Engineering Technician ID - VALDEZ MBASIC METABOLIC [id number] 10:19:00 Test Item Value Reference Range Interpretation [...] S NOT APPLICABLE FOR DIALYSIS PATIEN TS. Automation Engineering Technician ID - VALDEZ [id number] 10:18:00 Test Item Value Reference Range Interpretation Comments MAGNESIUM (BEAKER) (test code = 2.5 mg/dL 1.6-2.6 627) Automation Engineering Technician ID - VALDEZ [id number] 10:18:00 Test Item Value Reference Range Interpretation Comments PHOSPHORUS (BEAKER) (test code = 5.9 mg/dL 2.3-4.7 H 604) Automation Engineering Technician ID - VALDEZ MCBC W/PLT COUNT & AUTO [id number] 08:15:00 Test Item Value Reference Range Interpretation [...] CONCENTRATION Decreased (CELLAVISION)(BEAKER) (test code = 3438) Automation Engineering Technician ID - Zaira Simons comments: Slide comments:POCT-GLUCOSE METER 2021-01-12 07:17:00 Test Item Value Reference Range Interpretation Comments POC-GLUCOSE METER 129 mg/dL 70-110 H : [facility] (BEAKER) (test code = [place], 1538) [address]: Automation Engineering Technician/Techni won ID = [id number] for Be rki, Meti COMPREHENSIVE METABOLIC [id number] 04:04:00 Test Item Value Reference Range Interpretation [...] S NOT APPLICABLE FOR DIALYSIS PATIEN TS. Automation Engineering Technician ID - VALDEZ [id number] 03:58:00 Test Item Value Reference Range Interpretation Comments MAGNESIUM (BEAKER) (test code = 2.7 mg/dL 1.6-2.6 H 627) Automation Engineering Technician ID - VALDEZ [id number] 03:58:00 Test Item Value Reference Range Interpretation Comments PHOSPHORUS (BEAKER) (test code = 5.8 mg/dL 2.3-4.7 H 604) Automation Engineering Technician ID - VALDEZ MLACTIC ACID, [id number] 03:50:00 Test Item Value Reference Range Interpretation Comments LACTATE BLOOD ARTERIAL (2) 1.0 mmol/L 0.5-2.2 (BEAKER) (test code = 2874) Automation Engineering Technician ID - VALDEZ MOXYGEN SATURATION, [id number] 03:42:00 Test Item Value Reference Range Interpretation Comments O2 SATURATION (MEASURED) (BEAKER) 70.7 % (test code = 1455) BLOOD GAS, [id number] 03:42:00 Test Item Value Reference Range Interpretation [...] (BEAKER) (test code = 1819) 40.0 CALCIUM, [id number] 03:41:00 Test Item Value Reference Range Interpretation Comments CALCIUM IONIZED (BEAKER) (test 1.15 mmol/L 1.12-1.27 code = 698) PH, BLOOD (BEAKER) (test code = 7.44 1810) POCT-GLUCOSE [id number] 03:37:00 Test Item Value Reference Range Interpretation Comments POC-GLUCOSE METER 132 mg/dL 70-110 H : TESTED A T [facility] 6720 (BEAKER) (test code = NORM Ten[facility], 1538) [address]: Automation Engineering Technician/Techni won ID = [id number] for Be rki, Meti RAD, CHEST, 1 VIEW, NON [id number] 03:17:00Reason for exam:->ettShould this be performed at the bedside?->Yes [facility] : 1975 Sex: MFINAL REPORT CLINICAL INDICATION: Support lines. Comparison: 01/11/2021 at 1946 hours The patient is rotated to the left. The cardiomediastinal contours are stable. Central pulmonary vascular congestion and bilateral parenchymal opacities are unchanged. There is no pneumothorax. Support lines are stable. Signed: Domingo Duron Verified Date/Time: 01/12/2021 03:17:44 BASIC METABOLIC [id number] 22:54:00 Test Item Value Reference Range Interpretation [...] S NOT APPLICABLE FOR DIALYSIS PATIEN TS. Automation Engineering Technician ID - BSLACTIC ACID, [id number] 22:45:00 Test Item Value Reference Range Interpretation Comments LACTATE BLOOD ARTERIAL (2) 1.9 mmol/L 0.5-2.2 (BEAKER) (test code = 2874) Automation Engineering Technician ID - BSBLOOD GAS, [id number] 22:37:00 Test Item Value Reference Range Interpretation [...] Time (test code = The system which 65006-4) generated this result transmitted ref erence range: 4.0 - 7. 0 minutes. The re ference range was not u sed to interpret this result as normal/abnor mal. TEG Fibrinogen Activity 71.6 See_Comment [Au tomated message] (test code = 26798-7) The sy stem which generated this result transmitted ref erence range: 61.0 - 7 3.0 degrees. The re ference range was not u sed to interpret this result as normal/abnor mal. TEG Platelet Aggregation 64.6 See_Comment [A utomated message] (test code = 19830-2) The sy stem which generated this result transmitted ref erence range: 55.0 - 6 5.0 MM. The reference r kevin was not used to interpret this result as normal/abnor mal. TEG Fibrinolysis (test 0.0 % 0-5 code = 02020-1) TEG-H Activated Clotting 5.8 See_Comment [A utomated [...] 1414) Lab Interpretation (test Normal code = 78780-1) [facility] 21:36:00 Test Item Value Reference Range Interpretation Comments TEG Activated Clotting 5.6 See_Comment [Aut omated message] Time (test code = The system which 16618-5) generated this result transmitted ref erence range: 4.0 - 7. 0 minutes. The re ference range was not u sed to interpret this result as normal/abnor mal. TEG Fibrinogen Activity 71.6 See_Comment [Au tomated message] (test code = 61807-2) The sy stem which generated this result transmitted ref erence range: 61.0 - 7 3.0 degrees. The re ference range was not u sed to interpret this result as normal/abnor mal. TEG Platelet Aggregation 64.6 See_Comment [A utomated message] (test code = 53814-3) The sy stem which generated this result transmitted ref erence range: 55.0 - 6 5.0 MM. The reference r kevin was not used to interpret this result as normal/abnor mal. TEG Fibrinolysis (test 0.0 % 0-5 code = 83193-6) TEG-H Activated Clotting 5.8 See_Comment [A utomated [...] 1414) Lab Interpretation (test Normal code = 21818-5) [facility]-11 21:36:00 Test Item Value Reference Range Interpretation Comments TEG Activated Clotting 5.6 See_Comment [Aut omated message] Time (test code = The system which 82461-6) generated this result transmitted ref erence range: 4.0 - 7. 0 minutes. The re ference range was not u sed to interpret this result as normal/abnor mal. TEG Fibrinogen Activity 71.6 See_Comment [Au tomated message] (test code = 95024-8) The sy stem which generated this result transmitted ref erence range: 61.0 - 7 3.0 degrees. The re ference range was not u sed to interpret this result as normal/abnor mal. TEG Platelet Aggregation 64.6 See_Comment [A utomated message] (test code = 90941-1) The sy stem which generated this result transmitted ref erence range: 55.0 - 6 5.0 MM. The reference r kevin was not used to interpret this result as normal/abnor mal. TEG Fibrinolysis (test 0.0 % 0-5 code = 86540-1) TEG-H Activated Clotting 5.8 See_Comment [A utomated [...] 1414) Lab Interpretation (test Normal code = 62393-4) [facility]ROMBOELASTOGRAPH (TEG)2021-01-11 21:36:00 Test Item Value Reference Range [...] CONCENTRATION Decreased (CELLAVISION)(BEAKER) (test code = 3438) Automation Engineering Technician ID - ToritoSimran comments: Slide comments:BLOOD GAS, [...] (test code = 1819) 60.0 OXYGEN SATURATION, [id number] 20:58:00 Test Item Value Reference Range Interpretation Comments O2 SATURATION (MEASURED) (BEAKER) 76.5 % (test code = 1455) BASIC METABOLIC [id number] 20:23:00 Test Item Value Reference Range Interpretation [...] S NOT APPLICABLE FOR DIALYSIS PATIEN TS. Automation Engineering Technician ID - BSBLOOD GAS, [id number] 20:19:00 Test Item Value Reference Range Interpretation [...] (BEAKER) (test code = 1819) 60.0 GLUCOSE-STAT [id number] 20:19:00 Test Item Value Reference Range Interpretation Comments GLUCOSE RANDOM (BEAKER) (test code 172 mg/dL 70-110 H = 652) HGB/HCT (H&H) - STAT [id number] 20:19:00 Test Item Value Reference Range Interpretation Comments HEMOGLOBIN (BEAKER) (test code = 9.4 GM/DL 13.0-16.8 L 410) HEMATOCRIT (BEAKER) (test code = 28.0 % 40.0-50.0 L 411) SODIUM NA-STAT [id number] 20:17:00 Test Item Value Reference Range Interpretation Comments SODIUM (BEAKER) (test code = 381) 137 meq/L 136-145 POTASSIUM-STAT [id number] 20:17:00 Test Item Value Reference Range Interpretation Comments POTASSIUM (BEAKER) (test code = 4.4 meq/L 3.6-5.5 379) CALCIUM, [id number] 20:17:00 Test Item Value Reference Range Interpretation Comments CALCIUM IONIZED (BEAKER) (test 1.21 mmol/L 1.12-1.27 code = 698) PH, BLOOD (BEAKER) (test code = 7.28 1810) [id number] 20:13:00 Test Item Value Reference Range Interpretation Comments MAGNESIUM (BEAKER) (test code = 2.7 mg/dL 1.6-2.6 H 627) Automation Engineering Technician ID - [id number] 20:13:00 Test Item Value Reference Range Interpretation Comments PHOSPHORUS (BEAKER) (test code = 8.8 mg/dL 2.3-4.7 H 604) Automation Engineering Technician ID - BSLACTIC ACID, [id number] 20:08:00 Test Item Value Reference Range Interpretation Comments LACTATE BLOOD ARTERIAL (2) 2.4 mmol/L 0.5-2.2 H (BEAKER) (test code = 2874) Automation Engineering Technician ID - BSRAD, CHEST, 1 VIEW, NON [id number] 20:04:00Reason for exam:- >s/p cv surgeryShould this be performed at the bedside?->Yes [facility] : 1975 [...] tube are in place. Signed: Domingo Duron [facility] Verified Date/Time: 01/11/2021 20:04:03 [id number] 20:02:00 Test Item Value Reference Range Interpretation Comments FIBRINOGEN LEVEL (BEAKER) (test 318 mg/dl 225-434 code = 658) [id number] 20:02:00 Test Item Value Reference Range Interpretation Comments PARTIAL THROMBOPLASTIN TIME 30.3 seconds 22.5-36.0 (BEAKER) (test code = 760) PROTHROMBIN [id number] 20:01:00 Test Item Value Reference Range Interpretation Comments PROTIME (BEAKER) 18.8 seconds 11.9-14.2 H (test code = 759) INR (BEAKER) (test 1.60 See_Comment [Automat ed message] code = 370) The system [employer] generated this result transmitted ref erence range: [...] = 413) CBC W/PLT COUNT & AUTO [id number] 19:48:00 Test Item Value Reference Range Interpretation [...] (test code = 413) POC ACTIVATED CLOTTING [id number] 18:26:00 Test Item Value Reference Range Interpretation Comments Activated Clotting Time 125 sec : 74 -137 seconds, (test code = 441) Baseline: TESTED AT [address], [facility] 30: Automation Engineering Technician/Techni won ID = [id number] for CAST RO[facility] ACTIV[facility] [id number] 18:26:00 Test Item Value Reference Range Interpretation Comments Activated Clotting Time 125 sec : 74 -137 seconds, (test code = 441) Baseline: TESTED AT [address], 770 30: Automation Engineering Technician/Techni won ID = [id number] for CAST RO, JESSICA [facility] ACTIVATED CLOTTING [id number] 18:26:00 Test Item Value Reference Range Interpretation Comments Activated Clotting Time 125 sec : 74 -137 seconds, (test code = 441) Baseline: TESTED AT [address], [facility] 30: Automation Engineering Technician/Techni won ID = [id number] for CAST RO, JESSICA [facility][id number] 18:26:00 Test Item Value Reference Range Interpretation Comments ACTIVATED CLOTTING TIME 125 sec : 74 -137 seconds, (BEAKER) (test code = Baseli ne: TESTED AT 441) [address], [facility] 30: Automation Engineering Technician/Techni won ID = [id number] for CA STRO, JESSICA [id number] 18:25:00 Test Item Value Reference Range Interpretation Comments ACTIVATED CLOTTING TIME 120 sec : 74 -137 seconds, (BEAKER) (test code = Baseli ne: TESTED AT 441) [address], [facility] 30: Automation Engineering Technician/Techni won ID = [id number] for CA STRO, JESSICA [id number] 18:25:00 Test Item Value Reference Range Interpretation Comments ACTIVATED CLOTTING TIME 571 sec : 74 -137 seconds, (BEAKER) (test code = Baseli ne: TESTED AT 441) [address], [facility] 30: Automation Engineering Technician/Techni won ID = [id number] for CA STRO, JESSICA [id number] 18:25:00 Test Item Value Reference Range Interpretation Comments ACTIVATED CLOTTING TIME 687 sec : 74 -137 seconds, (BEAKER) (test code = Baseli ne: TESTED AT 441) [address], [facility] 30: Automation Engineering Technician/Techni won ID = [id number] for CA STRO, JESSICA [id number] 18:25:00 Test Item Value Reference Range Interpretation Comments ACTIVATED CLOTTING TIME 543 sec : 74 -137 seconds, (BEAKER) (test code = Baseli ne: TESTED AT 441) [address], [facility] 30: Automation Engineering Technician/Techni won ID = [id number] for CA STRO, JESSICA [id number] 18:25:00 Test Item Value Reference Range Interpretation Comments ACTIVATED CLOTTING TIME 368 sec : 74 -137 seconds, (BEAKER) (test code = Baseli ne: TESTED AT 441) [address], [facility] 30: Automation Engineering Technician/Techni won ID = [id number] for CA STRO, JESSICA PLATELET [id number] 18:11:00 Test Item Value Reference Range Interpretation Comments PLATELET COUNT (BEAKER) (test code 70 K/CU MM 150-450 L = 756) Automation Engineering Technician ID - [id number] ID - [id number] ID - [id number] 17:51:00 Test Item Value Reference Range Interpretation Comments FIBRINOGEN LEVEL (BEAKER) (test 334 mg/dl 225-434 code = 658) [id number] 17:51:00 Test Item Value Reference Range Interpretation Comments PARTIAL THROMBOPLASTIN TIME 29.2 seconds 22.5-36.0 (BEAKER) (test code = 760) BLOOD GAS, [id number] 17:50:00 Test Item Value Reference Range Interpretation [...] (BEAKER) (test code = 1819) 60.0 GLUCOSE-STAT [id number] 17:50:00 Test Item Value Reference Range Interpretation Comments GLUCOSE RANDOM (BEAKER) (test code 165 mg/dL 70-110 H = 652) HGB/HCT (H&H) - STAT [id number] 17:50:00 Test Item Value Reference Range Interpretation Comments HEMOGLOBIN (BEAKER) (test code = 8.9 GM/DL 13.0-16.8 L 410) HEMATOCRIT (BEAKER) (test code = 26.0 % 40.0-50.0 L 411) CALCIUM, [id number] 17:50:00 Test Item Value Reference Range Interpretation Comments CALCIUM IONIZED (BEAKER) (test 1.16 mmol/L 1.12-1.27 code = 698) PH, BLOOD (BEAKER) (test code = 7.34 1810) PROTHROMBIN [id number] 17:50:00 Test Item Value Reference Range Interpretation Comments PROTIME (BEAKER) 21.8 seconds 11.9-14.2 H (test code = 759) INR (BEAKER) (test 1.93 See_Comment [Automat ed message] code = 370) The system [employer] generated this result transmitted ref erence range: <=5.90. The reference range was not used to int erpret this result as normal/abnormal . RECOMMENDED COUMADIN/WARFARIN INR THERAPY RANGESSTANDARD DOSE: 2.0 - 3.0 Includes: PROPHYLAXIS forvenous thrombosis, systemic embolization; TREATMENT for venous thrombosis and/or pulmonary embolus.HIGH RISK: Target INR is 2.5-3.5 for patients with mechanical heart valves.SODIUM NA-STAT [id number] 17:45:00 Test Item Value Reference Range Interpretation Comments SODIUM (BEAKER) (test code = 381) 137 meq/L 136-145 POTASSIUM-STAT [id number] 17:45:00 Test Item Value Reference Range Interpretation Comments POTASSIUM (BEAKER) (test code = 4.5 meq/L 3.6-5.5 379) SODIUM NA-STAT [id number] 17:24:00 Test Item Value Reference Range Interpretation Comments SODIUM (BEAKER) (test code = 381) 136 meq/L 136-145 POTASSIUM-STAT [id number] 17:24:00 Test Item Value Reference Range Interpretation Comments POTASSIUM (BEAKER) (test code = 4.3 meq/L 3.6-5.5 379) GLUCOSE-STAT [id number] 17:24:00 Test Item Value Reference Range Interpretation Comments GLUCOSE RANDOM (BEAKER) (test code 161 mg/dL 70-110 H = 652) HGB/HCT (H&H) - STAT [id number] 17:24:00 Test Item Value Reference Range Interpretation Comments HEMOGLOBIN (BEAKER) (test code = 8.7 GM/DL 13.0-16.8 L 410) HEMATOCRIT (BEAKER) (test code = 26.0 % 40.0-50.0 L 411) BLOOD GAS, [id number] 17:24:00 Test Item Value Reference Range Interpretation [...] (BEAKER) (test code = 1819) 21.0 CALCIUM, [id number] 17:22:00 Test Item Value Reference Range Interpretation Comments CALCIUM IONIZED (BEAKER) (test 1.34 mmol/L 1.12-1.27 H code = 698) PH, BLOOD (BEAKER) (test code = 7.33 1810) CALCIUM, [id number] 16:49:00 Test Item Value Reference Range Interpretation Comments CALCIUM IONIZED (BEAKER) (test 1.12 mmol/L 1.12-1.27 code = 698) PH, BLOOD (BEAKER) (test code = 7.46 1810) BLOOD GAS, [id number] 16:49:00 Test Item Value Reference Range Interpretation [...] (BEAKER) (test code = 1819) 97.0 GLUCOSE-STAT [id number] 16:49:00 Test Item Value Reference Range Interpretation Comments GLUCOSE RANDOM (BEAKER) (test code 152 mg/dL 70-110 H = 652) HGB/HCT (H&H) - STAT [id number] 16:49:00 Test Item Value Reference Range Interpretation Comments HEMOGLOBIN (BEAKER) (test code = 9.0 GM/DL 13.0-16.8 L 410) HEMATOCRIT (BEAKER) (test code = 26.0 % 40.0-50.0 L 411) SODIUM NA-STAT [id number] 16:48:00 Test Item Value Reference Range Interpretation Comments SODIUM (BEAKER) (test code = 381) 139 meq/L 136-145 POTASSIUM-STAT [id number] 16:48:00 Test Item Value Reference Range Interpretation Comments POTASSIUM (BEAKER) (test code = 5.0 meq/L 3.6-5.5 379) BLOOD GAS, [id number] 16:08:00 Test Item Value Reference Range Interpretation [...] (BEAKER) (test code = 1819) 70.0 POTASSIUM-STAT [id number] 16:08:00 Test Item Value Reference Range Interpretation Comments POTASSIUM (BEAKER) (test code = 5.8 meq/L 3.6-5.5 H 379) GLUCOSE-STAT [id number] 16:08:00 Test Item Value Reference Range Interpretation Comments GLUCOSE RANDOM (BEAKER) (test code 170 mg/dL 70-110 H = 652) HGB/HCT (H&H) - STAT [id number] 16:08:00 Test Item Value Reference Range Interpretation Comments HEMOGLOBIN (BEAKER) (test code = 9.0 GM/DL 13.0-16.8 L 410) HEMATOCRIT (BEAKER) (test code = 26.0 % 40.0-50.0 L 411) SODIUM NA-STAT [id number] 16:07:00 Test Item Value Reference Range Interpretation Comments SODIUM (BEAKER) (test code = 381) 135 meq/L 136-145 L BLOOD GAS, [id number] 15:42:00 Test Item Value Reference Range Interpretation [...] (BEAKER) (test code = 1819) 70.0 GLUCOSE-STAT [id number] 15:42:00 Test Item Value Reference Range Interpretation Comments GLUCOSE RANDOM (BEAKER) (test code 153 mg/dL 70-110 H = 652) HGB/HCT (H&H) - STAT [id number] 15:42:00 Test Item Value Reference Range Interpretation Comments HEMOGLOBIN (BEAKER) (test code = 9.6 GM/DL 13.0-16.8 L 410) HEMATOCRIT (BEAKER) (test code = 28.0 % 40.0-50.0 L 411) SODIUM NA-STAT [id number] 15:40:00 Test Item Value Reference Range Interpretation Comments SODIUM (BEAKER) (test code = 381) 136 meq/L 136-145 POTASSIUM-STAT [id number] 15:40:00 Test Item Value Reference Range Interpretation Comments POTASSIUM (BEAKER) (test code = 5.1 meq/L 3.6-5.5 379) BLOOD GAS, [id number] 15:13:00 Test Item Value Reference Range Interpretation [...] (BEAKER) (test code = 1819) 70.0 GLUCOSE-STAT [id number] 15:13:00 Test Item Value Reference Range Interpretation Comments GLUCOSE RANDOM (BEAKER) (test code 139 mg/dL 70-110 H = 652) HGB/HCT (H&H) - STAT [id number] 15:13:00 Test Item Value Reference Range Interpretation Comments HEMOGLOBIN (BEAKER) (test code = 8.9 GM/DL 13.0-16.8 L 410) HEMATOCRIT (BEAKER) (test code = 26.0 % 40.0-50.0 L 411) SODIUM NA-STAT [id number] 15:11:00 Test Item Value Reference Range Interpretation Comments SODIUM (BEAKER) (test code = 381) 139 meq/L 136-145 POTASSIUM-STAT [id number] 15:11:00 Test Item Value Reference Range Interpretation Comments POTASSIUM (BEAKER) (test code = 4.9 meq/L 3.6-5.5 379) [id number] 14:31:03Glenn Peraza Jr., MD 01/11/2021 8:54 PMTEE [...] aortic dissection All findings communicated to surgical team.[facility] 2021-01-11 14:31:03Glenn Peraza Jr., MD 01/11/2021 8:54 [...] aortic dissection All findings communicated to surgical team.[facility] 2021-01-11 14:31:03Glenn Peraza Jr., MD 01/11/2021 8:54 PMTEE Date: 01/11/2021 2:31 PM Sex: Male [place] Trey Galvez MD Examiner: Glenn Peraza [...] aortic dissection All findings communicated to surgical team.[facility] [id number] 14:22:00 Test Item Value Reference Range Interpretation Comments GLUCOSE RANDOM (BEAKER) (test code 109 mg/dL 70-110 = 652) SODIUM NA-STAT [id number] 14:22:00 Test Item Value Reference Range Interpretation Comments SODIUM (BEAKER) (test code = 381) 138 meq/L 136-145 POTASSIUM-STAT [id number] 14:22:00 Test Item Value Reference Range Interpretation Comments POTASSIUM (BEAKER) (test code = 4.4 meq/L 3.6-5.5 379) BLOOD GAS, [id number] 14:22:00 Test Item Value Reference Range Interpretation [...] = 1819) 100.0 HGB/HCT (H&H) - STAT [id number] 14:22:00 Test Item Value Reference Range Interpretation Comments HEMOGLOBIN (BEAKER) (test code = 10.1 GM/DL 13.0-16.8 L 410) HEMATOCRIT (BEAKER) (test code = 30.0 % 40.0-50.0 L 411) POCT-GLUCOSE [id number] 12:53:00 Test Item Value Reference Range Interpretation Comments POC-GLUCOSE METER 121 mg/dL 70-110 H : TESTED A T [facility] 6720 (BEAKER) (test [facility] = 1538) [address]: Automation Engineering Technician/Techni won ID = [id number] for Maikel robledo (contract), Syt damien RAD, CHEST, 1 VIEW, NON [id number] 10:43:00Reason for exam:->ettShould this be performed at the bedside?->Yes [facility] : 1975 Sex: MFINAL REPORT RAD, CHEST, 1 VIEW, NON DEPT INDICATION: ett COMPARISON: Prior day's exam FINDINGS: Portable frontal view of the chest. IMPRESSION: Support Lines: Stable. Lungs and pleura: Stable patchy bilateral airspace disease. No pneumothorax.Heart and mediastinum: Stable contours. Additional findings: None. Signed: JR Bebeto, Taye Taylor Verified Date/Time: 01/11/2021 10:43:44 Reading Location: [facility] Radiology Reading Room BASIC METABOLIC [id number] 10:11:00 Test Item Value Reference Range Interpretation [...] S NOT APPLICABLE FOR DIALYSIS PATIEN TS. Automation Engineering Technician ID - VIRGILIO [id number] 10:10:00 Test Item Value Reference Range Interpretation Comments MAGNESIUM (BEAKER) (test code = 2.3 mg/dL 1.6-2.6 627) Automation Engineering Technician ID - VIRGILIO [id number] 10:10:00 Test Item Value Reference Range Interpretation Comments PHOSPHORUS (BEAKER) (test code = 6.2 mg/dL 2.3-4.7 H 604) Automation Engineering Technician ID - VIRGILIO BAILEYOOD GAS, [id number] 09:38:00 Test Item Value Reference Range Interpretation [...] (BEAKER) (test code = 1819) 40.0 CALCIUM, [id number] 09:34:00 Test Item Value Reference Range Interpretation Comments CALCIUM IONIZED (BEAKER) (test 1.19 mmol/L 1.12-1.27 code = 698) PH, BLOOD (BEAKER) (test code = 7.44 1810) POCT-GLUCOSE [id number] 06:58:00 Test Item Value Reference Range Interpretation Comments POC-GLUCOSE METER 108 mg/dL 70-110 : TESTED A T [facility] 6720 (BEAKER) (test code = RAYMONJACQUELINE Tenorio [facility], 1538) [address]: Automation Engineering Technician/Techni won ID = [id number] for September COMPREHENSIVE METABOLIC [id number] 06:13:00 Test Item Value Reference Range Interpretation [...] S NOT APPLICABLE FOR DIALYSIS PATIEN TS. Automation Engineering Technician ID - LINA LOperator ID - PIRAFY LCBC W/PLT COUNT & AUTO [id number] 06:08:00 Test Item Value Reference Range Interpretation [...] CONCENTRATION Decreased (CELLAVISION)(BEAKER) (test code = 3438) Automation Engineering Technician ID - Zaira Simons comments: Slide comments:MAGNESIUM 2021-01-11 04:57:00 Test Item Value Reference Range Interpretation Comments MAGNESIUM (BEAKER) (test code = 2.3 mg/dL 1.6-2.6 627) Automation Engineering Technician ID - LINA [id number] 04:57:00 Test Item Value Reference Range Interpretation Comments PHOSPHORUS (BEAKER) (test code = 6.4 mg/dL 2.3-4.7 H 604) Automation Engineering Technician ID - LINA LCALCIUM, [id number] 04:43:00 Test Item Value Reference Range Interpretation Comments CALCIUM IONIZED (BEAKER) (test 1.13 mmol/L 1.12-1.27 code = 698) PH, BLOOD (BEAKER) (test code = 7.51 1810) BLOOD GAS, [id number] 04:42:00 Test Item Value Reference Range Interpretation [...] (BEAKER) (test code = 1819) 40.0 SARS-COV2/RT-PCR ([facility])2021-01-11 02:44:00 Test Item Value Reference Range Interpretation Comments SARS-COV2/RT-PCR Negative Negative The SARS-Co V-2 target (test code = 5250135) nuclei c acids are not detected in [...] SARS-CoV-2/Flu/RSV by their healthcare provider. Results from [facility] Xpert Xpress SARS-CoV-2/Flu/RSV test should be correlated [...] of the Act.Fact Sheet for Healthcare Providers :https://www.[employer]/Documents/Xpert%20Xpress%20SARS%20CoV-2/Fact%20Sheets/3 02-3902%02APET-UEJ-6%20HEALTHCARE%20PROVIDERS%20FACT%20SHEET.pdfFact Sheet for Healthcare Patients:https://www.[employer] /Documents/Xpert%20Xpress%20SARS%20Cov-2/Fact%20Sheets/302-3801%50SQSO-ZZF-4%20P ATIENT%20FACT%20SHEET.pdfPOCT-GLUCOSE [id number] 00:19:00 Test Item Value Reference Range Interpretation Comments POC-GLUCOSE METER 88 mg/dL 70-110 : TESTED A T [facility] 6720 (BEAKER) (test code = NORM Tenorio [place], 1538) [address]: Automation Engineering Technician/Techni won ID = [id number] for Manuelito Busby [id number] 00:01:00 Test Item Value Reference Range Interpretation Comments PHOSPHORUS (BEAKER) (test code = 9.7 mg/dL 2.3-4.7 HH 604) Automation Engineering Technician ID - BSBASIC METABOLIC [id number] 00:00:00 Test Item Value Reference Range Interpretation [...] S NOT APPLICABLE FOR DIALYSIS PATIEN TS. Automation Engineering Technician ID - [id number] 23:57:00 Test Item Value Reference Range Interpretation Comments MAGNESIUM (BEAKER) (test code = 2.8 mg/dL 1.6-2.6 H 627) Automation Engineering Technician ID - BSCALCIUM, [id number] 23:42:00 Test Item Value Reference Range Interpretation Comments CALCIUM IONIZED (BEAKER) (test 1.10 mmol/L 1.12-1.27 L code = 698) PH, BLOOD (BEAKER) (test code = 7.43 1810) 2D Echo W/Doppler(CW/PW/Color)2021-01-10 18:38:44Ejection FractionSLEH ECHO HEARTLAB MKCKESSON CPACSInterface, External Ris In - 01/10/2021 6:39 PM C DTTransthoracic Echocardiography Report (TTE) Demographics Patient Name CROW KAUR Date of Study 01/10/2021 SR. Gender Male Visit Number [id number] Race Unknown Room Number C826 Number Date of 1975 Referring Physician Taye Villatoro NP Age 45 year(s) Floorleader Estela Mann [facility] Supervisory Clerk Radha Spence [facility] Interpreting Shama Duran MD Physician Procedure Type [...] 72.37 mmHg Pulmonic Valve Estimated PASP: [facility] W/Doppler(CW/PW/Color)2021-01-10 18:38:44Ejection FractionSLEH ECHO HEARTLAB MKCKESSON CPACSInterface, External Ris In - 01/10/2021 6:39 PM C DTTransthoracic Echocardiography Report (TTE) Demographics Patient Name CROW KAUR Date of Study 01/10/2021 SR. Gender Male Visit Number [id number] Race Unknown Room Number C826 Number Date of 1975 Referring Physician Taye Villatoro NP Age 45 year(s) Floorleader Estela Mann [facility] Supervisory Clerk Radha Spence [facility] Interpreting Shama Duran MD Physician Procedure Type [...] 72.37 mmHg Pulmonic Valve Estimated PASP: 92.37 [facility] campus2D Echo W/Doppler(CW/PW/Color)2021-01-10 18:38:44Ejection FractionSLEH ECHO HEARTLAB ANGEL CPACSInterface, External Ris In - 01/10/2021 6:39 PM C DTTransthoracic Echocardiography Report (TTE) Demographics Patient Name CROW KAUR Date of Study 01/10/2021 SR. Gender Male Visit Number [id number] Race Unknown Room Number C826 Number Date of 1975 Referring Physician Taye Villatoro NP Age 45 year(s) Floorleader Estela Mann [facility] Supervisory Clerk Radha Spence [facility] Interpreting Shama Duran MD Physician Procedure Type [...] mmHg Pulmonic Valve Estimated PASP: 92.[address] [facility] [id number] 17:13:00 Test Item Value Reference Range Interpretation Comments FIBRINOGEN LEVEL (DEISIAKER) (test 417 mg/dl 225-434 code = 658) [id number] 17:13:00 Test Item Value Reference Range Interpretation [...] CONCENTRATION Decreased (CELLAVISION)(BEAKER) (test code = 3438) Automation Engineering Technician ID - Samantha comments: Slide comments:PROTHROMBIN TIME/INR 2021-01-10 17:12:00 Test Item Value Reference Range Interpretation Comments PROTIME (BEAKER) 16.0 seconds 11.9-14.2 H (test code = 759) INR (BEAKER) (test 1.30 See_Comment [Automat ed message] code = 370) The system [employer] generated this result transmitted ref erence range: <=5.90. The reference range was not used to int erpret this result as normal/abnormal . RECOMMENDED COUMADIN/WARFARIN INR THERAPY RANGESSTANDARD DOSE: 2.0 - 3.0 Includes: PROPHYLAXIS forvenous thrombosis, systemic embolization; TREATMENT for venous thrombosis and/or pulmonary embolus.HIGH RISK: Target INR is 2.5-3.5 for patients with mechanical heart valves.Blood gas, [id number] 16:44:00 Test Item Value Reference Range Interpretation Comments pH, Roque (test code = 7.28 7.32-7.42 L 2746-6) pCO2, Roque (test code = 56 See_Comment H [Aut omated 285) message] The sy stem which generated this result transmitted reference range : 41 - 51 mm Hg. The reference range was not used to interpret this result as normal/abnormal . pO2, Roque (test code = 43 See_Comment H [Auto mated 5215-2) message] The sy stem which generated this result transmitted reference range : 25 - 40 mm Hg. The reference range was not used to interpret this result as normal/abnormal . O2 Sat, Roque (test code 71.2 % 40-70 H = 2711-0) HCO3, Roque (test code = 26 mmol/L 21-29 84326-8) Base Excess, Roque (test -1.3 mmol/L -2-3 code = 1927-3) Patient Temperature 37.3 (test code = 8310-5) FIO2 (test code = 1819) 50 Lab Interpretation Abnormal (test code = 92737-1) [facility], [id number] 16:44:00 Test Item Value Reference Range Interpretation [...] Roque (test code = 26 mmol/L 21-29 41269-0) Base Excess, Roque (test -1.3 mmol/L -2-3 code = 1927-3) Patient Temperature 37.3 (test code = 8310-5) FIO2 (test code = 1819) 50 Lab Interpretation Abnormal (test code = 63731-8) [facility], [id number] 16:44:00 Test Item Value Reference Range Interpretation [...] Roque (test code = 26 mmol/L 21-29 15547-2) Base Excess, Roque (test -1.3 mmol/L -2-3 code = 1927-3) Patient Temperature 37.3 (test code = 8310-5) FIO2 (test code = 1819) 50 Lab Interpretation Abnormal (test code = 27307-7) [facility] [id number] 16:44:00 Test Item Value Reference Range Interpretation [...] FIO2 (BEAKER) (test code = 1819) 50.0 [id number] 16:42:00 Test Item Value Reference Range Interpretation Comments PHOSPHORUS (BEAKER) (test code = 10.1 mg/dL 2.3-4.7 HH 604) Automation Engineering Technician ID - ADMINCOMPREHENSIVE METABOLIC [id number] 16:41:00 Test Item Value Reference Range Interpretation [...] S NOT APPLICABLE FOR DIALYSIS PATIEN TS. Automation Engineering Technician ID - [id number] 16:30:00 Test Item Value Reference Range Interpretation Comments MAGNESIUM (BEAKER) (test code = 2.8 mg/dL 1.6-2.6 H 627) Automation Engineering Technician ID - ADMINLactic acid, [id number] 16:25:00 Test Item Value Reference Range Interpretation Comments Lactate, Venous (test code 1.21 mmol/L 0.5-2.2 = 2872) CARLEY (test code = CARLEY) Automation Engineering Technician ID - ADMIN Lab Interpretation (test Normal code = 04131-1) [facility] [id number] 16:25:00 Test Item Value Reference Range Interpretation Comments Lactate, Venous (test code 1.21 mmol/L 0.5-2.2 = 2872) CARLEY (test code = CARLEY) Automation Engineering Technician ID - ADMIN Lab Interpretation (test Normal code = 99348-4) [facility], [id number] 16:25:00 Test Item Value Reference Range Interpretation Comments Lactate, Venous (test code 1.21 mmol/L 0.5-2.2 = 2872) CARLEY (test code = CARLEY) Automation Engineering Technician ID - ADMIN Lab Interpretation (test Normal code = 51148-3) [facility] CenterLACTIC ACID, [id number] 16:25:00 Test Item Value Reference Range Interpretation Comments LACTATE BLOOD VENOUS (2) (BEAKER) 1.21 mmol/L 0.50-2.20 (test code = 2872) Automation Engineering Technician ID - ADMINCBC W/PLT COUNT & AUTO [id number] 16:13:00 Test Item Value Reference Range Interpretation [...] = 2801) RAD, CHEST, 1 VIEW, NON [id number] 16:00:00Reason for exam:->ETTShould this be performed at the bedside?->Yes [facility] 1975 Sex: MFINAL REPORT [...] MDReport Verified Date/Time: 01/10/2021 16:00:56 Reading Location: [facility] POCT-GLUCOSE [id number] 15:13:00 Test Item Value Reference Range Interpretation Comments POC-GLUCOSE METER 114 mg/dL 70-110 H : TESTED A T [facility] 6720 (TAMARA) (test code = NORM [place], 1538) [address]: Automation Engineering Technician/Techni won ID = [id number] for ABRAN PALOMINO, TUNNELED CATHETER [id number] 10:49:00FINAL REPORT TUNNELED DIALYSIS CATHETER PLACEMENT, UNDER [...] MDReport Verified Date/Time: 02/03/2019 10:49:11 Reading Location: [place] [address] Angio Body Reading Room COMPREHENSIVE METABOLIC [id number] 07:04:00 Test Item Value Reference Range Interpretation [...] (test code = 413) HEPATITIS B SURFACE [id number] 01:25:00 Test Item Value Reference Range Interpretation Comments HEPATITIS B SURFACE ANTIGEN (2) Nonreactive Nonreactive (BEAKER) (test code = 2585) BASIC METABOLIC [id number] 01:10:00 Test Item Value Reference Range Interpretation [...] S NOT APPLICABLE FOR DIALYSIS PATIEN TS. [id number] 01:03:00 Test Item Value Reference Range Interpretation Comments POTASSIUM (BEAKER) (test code = 5.4 meq/L 3.5-5.1 H 379) PROTHROMBIN TIME/[id number] 01:01:00 Test Item Value Reference Range Interpretation [...] for patients wiht mechanical heart valves.BASIC METABOLIC [id number] 19:02:00 Test Item Value Reference Range Interpretation [...]
[2021-07-31 04:55] LABS: Hematocrit 40.8 % (39.6-49.0); Lymphocytes % 17.9 % (15.3-44.8); MPV 6.7 fL (7.6-11.3); RBC Red Blood Cell Count 4.63 M/uL (4.33-5.43)
[2021-07-31 05:23] LABS: Potassium 7.9 mmol/L (3.5-5.1)
[2021-07-31 05:27] LABS: Anisocytosis 1+; Blood Morphology Comment NOTED (NOT SEEN); Platelet Estimate ADEQ; White Blood Cell Scan OK (OK)
--- NOTE | 2021-07-31 06:20 | ER ---
Nurse's Notes [facility] Name: Jermaine Rivera Age: 46 yrs Sex: Male : 1975 Arrival Date: 07/31/2021 Time: 01:52 Bed 25 Private MD: Diagnosis: Hyperkalemia;End stage renal disease Presentation: 07/31 02:02 Chief complaint: Patient states: missed dialysis on Saturday. started having tingling tw5 to L side at 930pm. no deficits noted on L side. Coronavirus screen: Vaccine status:. Ebola Screen: No symptoms or risks identified at this time. Initial Sepsis Screen: Does the patient meet any 2 criteria? No. Patient's initial sepsis screen is negative. Does the patient have a suspected source of infection? No. Patient's initial sepsis screen is negative. Risk Assessment: Do you want to hurt yourself or someone else? Patient reports no desire to harm self or others. Onset of symptoms was July 30, 2021 at 21:30. 02:02 Method Of Arrival: Wheelchair tw5 02:02 Acuity: FERNANDA 3 tw5 Triage Assessment: 02:13 General: Appears in no apparent distress. Behavior is cooperative. Pain: Denies pain. sm5 Neuro: Level of Consciousness is awake, alert, obeys commands, Oriented to person, place, time, situation, Management Engineer are equal bilaterally Moves all extremities. Speech is normal, Facial symmetry appears normal. Historical: - Allergies: 02:14 No Known Allergies; sm5 - PMHx: 02:03 Brain bleed; CVA; Dialysis; Hypertension; Renal Disease; tw5 - PSHx: 02:03 heart surgery valve replaced; tw5 - Immunization history:: Client reports receiving the 2nd dose of the Covid vaccine. - Social history:: Smoking status: Patient denies any tobacco usage or history of. Screenin:04 Abuse screen: Denies threats or abuse. Denies injuries from another. Nutritional tw5 screening: No deficits noted. Tuberculosis screening: No symptoms or risk factors identified. Fall Risk None identified. Assessment: 02:00 General: Appears in no apparent distress. uncomfortable, Behavior is cooperative, vc1 appropriate for age. Neuro: Level of Consciousness is awake, alert, obeys commands, Oriented to person, place, time, situation, Appropriate for age. Cardiovascular: Patient's skin is warm and dry. Respiratory: Airway is patent Respiratory effort is even, unlabored. 03:00 Reassessment: Patient and/or family updated on plan of care and expected duration. Pain vc1 level reassessed. Patient is alert, oriented x 3, equal unlabored respirations, skin warm/dry/pink. 04:00 Reassessment: Patient and/or family updated on plan of care and expected duration. Pain vc1 level reassessed. Patient is alert, oriented x 3, equal unlabored respirations, skin warm/dry/pink. 05:00 Reassessment: Patient and/or family updated on plan of care and expected duration. Pain vc1 level reassessed. Patient is alert, oriented x 3, equal unlabored respirations, skin warm/dry/pink. 05:46 Reassessment: Patient and/or family updated on plan of care and expected duration. Pain vc1 level reassessed. Patient is alert, oriented x 3, equal unlabored respirations, skin warm/dry/pink. General: Appears in no apparent distress. Behavior is calm, cooperative, appropriate for age. Neuro: Level of Consciousness is alert, obeys commands, Oriented to person, place, time, situation, Appropriate for age. Cardiovascular: Patient's skin is warm and dry. Rhythm is sinus rhythm. Respiratory: No deficits noted. 07:30 General: Appears in no apparent distress. Behavior is sleeping. Cardiovascular: ww Patient's skin is warm and dry. Rhythm is sinus rhythm. Respiratory: Airway is patent Respiratory effort is even, unlabored, Respiratory pattern is regular, symmetrical. 08:25 General: Appears in no apparent distress. Behavior is calm, cooperative. Neuro: Level ww of Consciousness is awake, alert, obeys commands, Oriented to person, place, time, situation. Respiratory: Airway is patent Respiratory effort is even, unlabored, Respiratory pattern is regular, symmetrical. Derm: Skin is intact. 08:26 Reassessment: Blood sugar 41. ER MD notified. Apple juice, soda and breakfast tray ww given. 09:00 Reassessment: Patient appears in no apparent distress at this time. blood sugar 61. ww Soda given and requested another tray. 09:15 Reassessment: Patient appears in no apparent distress at this time. No changes from ww previously documented assessment. Patient and/or family updated on plan of care and expected duration. Pain level reassessed. Patient is alert, oriented x 3, equal unlabored respirations, skin warm/dry/pink. assisted to bedside. Vital Signs: 02:02 BP 155 / 111; Pulse 71; Resp 18; Temp 98.1(O); Pulse Ox 99% on R/A; Weight 80.74 kg; tw5 Height 6 ft. 0 in. (182.88 cm); 05:30 BP 172 / 117; Pulse 70; Resp 22; Pulse Ox 94% on R/A; vc1 06:00 BP 172 / 120; Pulse 70; Resp 24; Pulse Ox 92% on R/A; vc1 06:46 BP 190 / 125; Pulse 70; Resp 29 S; Pulse Ox 100% on R/A; vc1 07:30 BP 181 / 116; Pulse 73; Resp 18; Pulse Ox 100% on Simple Mask; ww 08:30 BP 184 / 121; Pulse 75; Resp 20; Pulse Ox 100% on R/A; ww 09:15 BP 194 / 130; Pulse 72; Resp 24; Pulse Ox 96% on R/A; ww 02:02 Body Mass Index 24.14 (80.74 kg, 182.88 cm) tw5 ED Course: 01:52 Patient arrived in ED. ja2 02:03 Triage completed. tw5 02:03 Arm band placed on right wrist. tw5 02:04 Omar Benson, RN is Primary Nurse. as6 02:05 Patient has correct armband on for positive identification. Bed in low position. Call vc1 light in reach. 02:11 Roger Chowdhury MD is Attending Physician. kdr 02:30 Missed attempt(s): 22 gauge in right forearm. Bleeding controlled, band aid applied, vc1 catheter tip intact. 02:35 Inserted saline lock: 22 gauge in right forearm, using aseptic technique. No blood vc1 return, flushes well. 03:07 CT Head Brain wo Cont In Process Unspecified. EDMS 04:48 Lab(s) recollected, by me, sent to lab. Inserted saline lock: 22 gauge in right hand, tw5 using aseptic technique. Blood collected. 06:14 Alta Pace MD is Hospitalizing Provider. kdr Administered Medications: 06:13 CANCELLED (Physician Discretion): Kayexalate (polystyrene) 60 grams PO once as6 06:40 Drug: Albuterol - atroVENT (ipratropium) (3:1) (2.5 mg - 0.5 mg) 3 ml Route: Nebulizer; as6 07:07 Follow up: Response: No adverse reaction vc1 06:42 Drug: D50W 50 ml {Note: due to the D50 shortage per hospital protocol D10W 250ML is as6 being used .} Route: IVP; Site: right forearm; 07:08 Follow up: Response: No adverse reaction vc1 06:42 Drug: Sodium Bicarbonate 1 amp Route: IVP; Site: right forearm; as6 07:07 Follow up: Response: No adverse reaction vc1 06:49 Drug: Calcium Gluconate 1 grams Route: IVPB; Infused Over: 60 mins; Site: right forearm;as6 07:08 Follow up: Response: No adverse reaction; IV Status: Completed infusion; IV Intake: vc1 100ml 07:06 Drug: Insulin Regular Human 10 units {Co-Signature: as6 (Omar Benson RN).} Route: vc1 IVP; Site: right forearm; 07:08 Follow up: Response: No adverse reaction vc1 Intake: 07:08 IV: 100ml; Total: 100ml. vc1 Outcome: 06:19 Decision to Hospitalize by Provider. kdr 21:08 Patient left the ED. mw2 Signatures: Dispatcher [employer] EDRoger Hyde MD MD kdr [place], MyKena mw2 Joyce Miller Tiffany tw5 Omar Benson RN RN as6 Modesta Ashford RN RN 5 Padmini Gonzalez RN RN ww Calcote, Vanessa, RN RN vc1 Omar Benson RN as6 Corrections: (The following items were deleted from the chart) 02:03 02:03 PMHx: CVA; charlee5 tw5
--- NOTE | 2021-07-31 06:20 | EDPHYS ---
Physician Documentation [facility] Name: Jermaine Rivera Age: 46 yrs Sex: Male : 1975 Arrival Date: 07/31/2021 Time: 01:52 Bed 25 Private MD: ED Physician Roger Chowdhury HPI: 07/31 04:35 This 46 yrs old Black Male presents to ER via Wheelchair with complaints of LEFT FEELS kdr TIGHT. 04:35 The patient missed dialysis on Saturday and is now concerned that he may be having a kdr stroke since his left side upper and lower extremity appear to be more stiff. To demonstrate this he lifted his leg and held it up for an extended period of time. Additionally held up his left arm for an extended period of time. He indicated that he might have been able to hold his leg up longer but due to had a very heavy shoe, he was not able to continue holding his leg up. Patient otherwise had no focal complaints and no other focal deficits. He indicated that he had missed dialysis on Saturday due to attending his son and daughter [employer] games.. Onset: The symptoms/episode began/occurred gradually, yesterday. Severity of symptoms: At their worst the symptoms were mild moderate just prior to arrival, in the emergency department the symptoms are unchanged. The patient has not experienced similar symptoms in the past. The patient has not recently seen a physician. Historical: - Allergies: 02:14 No Known Allergies; sm5 - PMHx: 02:03 Brain bleed; CVA; Dialysis; Hypertension; Renal Disease; tw5 - PSHx: 02:03 heart surgery valve replaced; tw5 - Immunization history:: Client reports receiving the 2nd dose of the Covid vaccine. - Social history:: Smoking status: Patient denies any tobacco usage or history of. ROS: 04:35 Constitutional: Negative for fever, chills, and weight loss, Eyes: Negative for injury, kdr pain, redness, and discharge, ENT: Negative for injury, pain, and discharge, Neck: Negative for injury, pain, and swelling, Cardiovascular: Negative for chest pain, palpitations, and edema, Respiratory: Negative for shortness of breath, cough, wheezing, and pleuritic chest pain, Abdomen/GI: Negative for abdominal pain, nausea, vomiting, diarrhea, and constipation, Back: Negative for injury and pain, : Negative for injury, bleeding, discharge, and swelling, Skin: Negative for injury, rash, and discoloration, Neuro: Negative for headache, weakness, numbness, tingling, and seizure activity. Psych: Negative for depression, anxiety, suicide ideation, homicidal ideation, and hallucinations, Allergy/Immunology: Negative for hives, rash, and allergies, Endocrine: Negative for neck swelling, polydipsia, polyuria, polyphagia, and marked weight changes, Hematologic/Lymphatic: Negative for swollen nodes, abnormal bleeding, and unusual bruising. 04:35 MS/extremity: Positive for Left upper and lower extremity are more stiff than usual, Negative for acute changes. Exam: 04:35 Constitutional: This is a well developed, well nourished patient who is awake, alert, kdr and in no acute distress. Head/Face: Normocephalic, atraumatic. Eyes: Pupils equal round and reactive to light, extra-ocular motions intact. Lids and lashes normal. Conjunctiva and sclera are non-icteric and not injected. Cornea within normal limits. Periorbital areas with no swelling, redness, or edema. Neck: Trachea midline, no thyromegaly or masses palpated, and no cervical lymphadenopathy. Supple, full range of motion without nuchal rigidity, or vertebral point tenderness. No Meningismus. Chest/axilla: Normal chest wall appearance and motion. Nontender with no deformity. No lesions are appreciated. Cardiovascular: Regular rate and rhythm with a normal S1 and S2. No gallops, murmurs, or rubs. Normal PMI, no JVD. No pulse deficits. Respiratory: Lungs have equal breath sounds bilaterally, clear to auscultation and percussion. No rales, rhonchi or wheezes noted. No increased work of breathing, no retractions or nasal flaring. Abdomen/GI: Soft, non-tender, with normal bowel sounds. No distension or tympany. No guarding or rebound. No evidence of tenderness throughout. Back: No spinal tenderness. No costovertebral tenderness. Full range of motion. Skin: Warm, dry with normal turgor. Normal color with no rashes, no lesions, and no evidence of cellulitis. MS/ Extremity: Pulses equal, no cyanosis. Neurovascular intact. Full, normal range of motion. Neuro: Awake and alert, GCS 15, oriented to person, place, time, and situation. Cranial nerves II-XII grossly intact. Motor strength 5/5 in all extremities. Sensory grossly intact. Cerebellar exam normal. Normal gait. Psych: Awake, alert, with orientation to person, place and time. Behavior, mood, and affect are within normal limits. Vital Signs: 02:02 BP 155 / 111; Pulse 71; Resp 18; Temp 98.1(O); Pulse Ox 99% on R/A; Weight 80.74 kg; tw5 Height 6 ft. 0 in. (182.88 cm); 05:30 BP 172 / 117; Pulse 70; Resp 22; Pulse Ox 94% on R/A; vc1 06:00 BP 172 / 120; Pulse 70; Resp 24; Pulse Ox 92% on R/A; vc1 06:46 BP 190 / 125; Pulse 70; Resp 29 S; Pulse Ox 100% on R/A; vc1 07:30 BP 181 / 116; Pulse 73; Resp 18; Pulse Ox 100% on Simple Mask; ww 08:30 BP 184 / 121; Pulse 75; Resp 20; Pulse Ox 100% on R/A; ww 09:15 BP 194 / 130; Pulse 72; Resp 24; Pulse Ox 96% on R/A; ww 02:02 Body Mass Index 24.14 (80.74 kg, 182.88 cm) tw5 MDM: 04:21 ED course: [facility] reports no acute intracranial findings. kdr 04:35 Data reviewed: vital signs, nurses notes, lab test result(s), radiologic studies. kdr Counseling: I had a detailed discussion with the patient and/or guardian regarding: the historical points, exam findings, and any diagnostic results supporting the discharge/admit diagnosis, lab results, radiology results, the need for outpatient follow up. ED course: [facility] radiology reports no acute intracranial findings. 06:19 Patient medically screened. kdr 07/31 02:24 Order name: CBC with Diff kdr 07/31 02:24 Order name: Chem 7 kdr 07/31 04:59 Order name: CBC Smear Scan EDMS 07/31 08:08 Order name: COVID-19 SARS RT PCR (Document "Date of Onset" if Symptomatic) jl7 07/31 08:35 Order name: Glucose, Ancillary Testing EDMS 07/31 08:54 Order name: Comprehensive Metabolic Panel EDMS 07/31 08:54 Order name: Comprehensive Metabolic Panel EDMS 07/31 08:54 Order name: Protime (+INR) EDMS 07/31 08:55 Order name: CBC with Automated Diff EDMS 07/31 08:55 Order name: CBC with Automated Diff EDMS 07/31 08:55 Order name: Protime (+INR) EDMS 07/31 08:55 Order name: PTT, Activated Partial Thromb EDMS 07/31 08:55 Order name: PTT, Activated Partial Thromb EDMS 07/31 09:05 Order name: Glucose, Ancillary Testing EDMS 07/31 02:24 Order name: CT Head Brain wo Cont kdr 07/31 06:12 Order name: EKG Strip; Complete Time: 06:46 kdr 07/31 07:19 Order name: EKG Electrocardiogram EDMS 07/31 08:52 Order name: Diet Renal; Complete Time: 08:53 ww 07/31 08:55 Order name: CONS Physician Consult EDMS 07/31 08:55 Order name: Renal EDMS 07/31 10:28 Order name: Glucose, Ancillary Testing EDMS 07/31 18:47 Order name: Glucose, Ancillary Testing EDMS Administered Medications: 06:13 CANCELLED (Physician Discretion): Kayexalate (polystyrene) 60 grams PO once as6 06:40 Drug: Albuterol - atroVENT (ipratropium) (3:1) (2.5 mg - 0.5 mg) 3 ml Route: Nebulizer; as6 07:07 Follow up: Response: No adverse reaction vc1 06:42 Drug: D50W 50 ml {Note: due to the D50 shortage per hospital protocol D10W 250ML is as6 being used .} Route: IVP; Site: right forearm; 07:08 Follow up: Response: No adverse reaction vc1 06:42 Drug: Sodium Bicarbonate 1 amp Route: IVP; Site: right forearm; as6 07:07 Follow up: Response: No adverse reaction vc1 06:49 Drug: Calcium Gluconate 1 grams Route: IVPB; Infused Over: 60 mins; Site: right forearm;as6 07:08 Follow up: Response: No adverse reaction; IV Status: Completed infusion; IV Intake: vc1 100ml 07:06 Drug: Insulin Regular Human 10 units {Co-Signature: as6 (Omar Benson RN).} Route: vc1 IVP; Site: right forearm; 07:08 Follow up: Response: No adverse reaction vc1 Disposition Summary: 07/31/21 06:19 Hospitalization Ordered Hospitalization Status: Inpatient Admission kdr Provider: Alta Pace Condition: Serious kdr Problem: an acute exacerbation kdr Symptoms: have improved kdr Bed/Room Type: Standard kdr Location: [facility] ER HOLD(07/31/21 18:32) iw Room Assignment: ERHOLD-(07/31/21 18:32) iw Diagnosis - Hyperkalemia kdr - End stage renal disease kdr Forms: - Medication Reconciliation Form kdr - SBAR form kdr Signatures: Dispatcher [employer] EDMS Pia Sloan Kevin, MD MD kdr Melissa Roth, RN CHRISTOPHE iw Tyler Reyes RN RN ja1 nAa Gonzalez tw5 Omar Benson RN RN as6 Modesta Ashford RN RN 5 Mavis So RN RN vc1 Omar Benson RN as6 Corrections: (The following items were deleted from the chart) 02:03 02:03 PMHx: CVA; tw5 tw5 06:13 06:09 Kayexalate (polystyrene) 60 grams PO once ordered. kdr as6 10:16 06:19 Telemetry/MedSurg (Inpatient) kdr ja1 10:16 06:19 kdr ja1 18:13 10:16 [facility] ER HOLD ja1 bd 18:13 10:16 ERHOLD- ja1 bd 18:32 18:13 Telemetry/MedSurg (Inpatient) bd iw 18:32 18:13 223 bd iw
[2021-07-31] MEDS ORDERED: INSULIN -REGULAR HUMAN 50 UNIT/0.5 ML ML ONE (06:24)
[2021-07-31] MEDS ORDERED: ALBUTEROL 2.5 MG/3 ML NEB SOL ONE (06:24)
[2021-07-31] MEDS ORDERED: IPRATROPIUM BROM 0.5MG/2.5ML ONE (06:25)
[2021-07-31] MEDS ORDERED: CALCIUM GLUCONATE 1 GM IVPB 1 GM/50 ML BAG IV ONE (06:25)
[2021-07-31] MEDS ORDERED: SOD BICARB 8.4% PEDI 10 mEq/10 mL SYR IVP ONE (06:25)
[2021-07-31] MEDS ORDERED: D10W 250 ML IV ONE (06:37)
[2021-07-31] MEDS ORDERED: MORPHINE 2 MG/ML SYR IV PRN (08:49)
[2021-07-31] MEDS ORDERED: ONDANSETRON 4 MG/2 ML VIAL IV PRN (08:49)
[2021-07-31] MEDS ORDERED: ACETAMINOPHEN 500 MG TAB PO PRN (08:49)
[2021-07-31] MEDS ORDERED: cloNIDine HCL 0.1 MG TAB ONE ×2 (12:24→18:16)
[2021-07-31] MEDS ORDERED: CLONIDINE HCL 0.3 MG TAB PO ONE ×2 (12:30→17:59)
[2021-07-31] MEDS ORDERED: HYDRALAZINE HCL 20 MG/ML VIAL IV ONE ×2 (14:08→17:00)
[2021-07-31] MEDS ORDERED: HYDRALAZINE HCL 20 MG/ML VIAL ONE ×2 (14:39→16:54)
--- NOTE | 2021-07-31 15:00 | RAD REPORT ---
EXAM DESCRIPTION: CT - Head Brain Wo Cont - 07/31/2021 4:43 am CLINICAL HISTORY: Left extremity stiffness COMPARISON: 12/07/2020. TECHNIQUE: CT HEAD WITHOUT IV CONTRAST on 07/31/2021 2:24 AM CSTThis exam was performed according to our departmental dose-optimization program, which includes automated exposure control, adjustment of the mA and/or kV according to patient size and/or use of iterative reconstruction technique. FINDINGS: There is no acute hemorrhage, mass effect or midline shift. There is mild encephalomalacia in the anterior left parietal lobe. There is no hydrocephalus. There is no significant volume loss f or age.The calvarium is intact. Orbits and globes are unremarkable. The paranasal sinuses are clear. Mastoid air cells are clear. IMPRESSION: No acute intracranial findings. Electronically signed by: Vamshi Parekh MD 07/31/2021 3:55 AM [employer] Due to temporary technical issues with the PACS/Fluency reporting system, reports are being signed by the in house radiologists without review as a courtesy to insure prompt reporting. The interpreting radiologist is fully responsible for the content of the report.
[2021-07-31] MEDS ORDERED: MORPHINE 2 MG/ML SYR IV ONE (17:59)
[2021-07-31] MEDS ORDERED: clonazePAM 1 MG TAB PO ONE (17:59)
[2021-07-31] MEDS ORDERED: clonazePAM 0.5 MG TAB ONE (18:17)
--- NOTE | 2021-07-31 20:28 | P.CNS ---
Date of Consult: 07/31/21 Reason for Consult: Hyperkalemia Requesting Physician: Alta Pace Chief Complaint: Muscle stiffness History of Present Illness: 04:35 This 46 yrs old Black Male presents to ER via Wheelchair with complaints of LEFT FEELS kdr TIGHT. 04:35 The patient missed dialysis on Saturday and is now concerned that he may be having a kdr stroke since his left side upper and lower extremity appear to be more stiff. To demonstrate this he lifted his leg and held it up for an extended period of time. Additionally held up his left arm for an extended period of time. He indicated that he might have been able to hold his leg up longer but due to had a very heavy shoe, he was not able to continue holding his leg up. Patient otherwise had no focal complaints and no other focal deficits. He indicated that he had missed dialysis on Saturday due to attending his son and daughter spinal games.. Onset: The symptoms/episode began/occurred gradually, yesterday. Severity of symptoms: At their worst the symptoms were mild moderate just prior to arrival, in the emergency department the symptoms are unchanged. The patient has not experienced similar symptoms in the past. The patient has not recently seen a physician. Allergies No Known Allergies Allergy (Verified 11/04/17 08:13) Home medications list reviewed: Yes Home Medications: Hydralazine HCl [Apresoline] 25 mg PO TID 11/04/17 Nifedipine [Nifedipine ER] 60 mg PO DAILY 11/04/17 Terazosin HCl 10 mg PO BID 11/04/17 Sevelamer HCl [Renagel] 800 mg PO TID 02/04/18 Clindamycin HCl 600 mg PO TID #21 capsule 02/08/18 Tramadol HCl [Ultram] 50 mg PO TID PRN #21 tablet 02/08/18 Amiodarone HCl [Pacerone] 100 mg PO DAILY 07/31/21 Bupropion *Xl* [Wellbutrin XL*] 150 mg PO DAILY 07/31/21 Carvedilol [Coreg] 25 mg PO BID 07/31/21 Gabapentin 100 mg PO BID 07/31/21 Losartan Potassium 50 mg PO DAILY 07/31/21 Pantoprazole [Protonix Tab*] 40 mg PO DAILY 07/31/21 Warfarin Sodium [Coumadin*] 5 mg PO DAILY 07/31/21 cloNIDine HCL [Catapres] 0.3 mg PO TID 07/31/21 - Past Medical/Surgical History Diabetic: No -: Hypertension -: End-stage renal disease -: Diastolic CHF -: Anemia of chronic disease -: Thrombocytopenia -: pulmonary edema -: hx-afib- resolved -: Dialysis access placement-rt chest wall -: dialysis access-right chest wall Psychosocial/ Personal History: The patient is single. He has 9 children. He does not work. He recently got out of skilled nursing in May of 2016. - Family History Mother Medical History: Heart disease - Social History Smoking Status: Unknown if ever smoked Alcohol use: No CD- Drugs: No Caffeine use: Yes Review of Systems 10-point ROS is otherwise unremarkable Respiratory: SOB with Excertion Neurological: Weakness Physical Examination Temp Pulse Resp BP Pulse Ox 99.3 F 117 H 20 140/91 H 95 07/31/21 16:16 07/31/21 18:45 07/31/21 18:45 07/31/21 18:45 07/31/21 18:45 General: Oriented x3, Cooperative Neck: Supple Respiratory: Normal air movement Cardiovascular: Regular rate/rhythm, Edema Gastrointestinal: Non-distended, No guarding Musculoskeletal: No clubbing, No contractures Integumentary: No rashes, No cyanosis Neurological: Normal speech Laboratory Data (last 24 hrs) 07/31/21 04:45: Sodium 133 L, Potassium 7.9 H*, BUN 90 H, Creatinine 13.90 H*, Glucose 90 07/31/21 04:45: WBC 5.30, Hgb 12.7 L, Hct 40.8, Plt Count 190 Imagings Data: EXAM DESCRIPTION: CT - Head Brain Wo Cont - 07/31/2021 4:43 am CLINICAL HISTORY: Left extremity stiffness COMPARISON: 12/07/2020. TECHNIQUE: CT HEAD WITHOUT IV CONTRAST on 07/31/2021 2:24 AM CSTThis exam was performed according to our departmental dose-optimization program, which includes automated exposure control, adjustment of the mA and/or kV according to patient size and/or use of iterative reconstruction technique. FINDINGS: There is no acute hemorrhage, mass effect or midline shift. There is mild encephalomalacia in the anterior left parietal lobe. There is no hydrocephalus. There is no significant volume loss for age.The calvarium is intact. Orbits and globes are unremarkable. The paranasal sinuses are clear. Mastoid air cells are clear. IMPRESSION: No acute intracranial findings. Conclusions/Impression: ESRD -Acute HD now -Will repeat HD in the morning. Critical Hyperkalemia -Acute HD now -NPO HTN with CKD/ CHF -Restart Losartan BID -Restart Nifedipine BID Diastolic CHF, chronic -Acute HD with UF now CKD MBD -Start Vitamin D -NPO Thank you kindly for the consultation. Case reviewed with Dr. Pace Critical Care: Yes
[2021-07-31 20:41] VITALS: BP 216/142; TEMP 98.3
--- NOTE | 2021-07-31 20:52 | P.HP ---
Certification for Inpatient Patient admitted to: Observation With expected LOS: <2 Midnights Patient will require the following post-hospital care: None Practitioner: I am a practitioner with admitting privileges, knowledge of patient current condition, hospital course, and medical plan of care. Services: Services provided to patient in accordance with Admission requirements found in Title 42 Section 412.3 of the Code of Federal Regulations Patient History Date of Service: 07/31/21 Reason for admission: Uncontrolled hypertension History of Present Illness: Patient is a 46-year-old gentleman who came to the hospital with uncontrolled hypertension. Patient's blood pressure was 240/140. Patient was also on hemodialysis. Patient has not been compliant with his hemodialysis. Patient came into the emergency room for further evaluation. Allergies No Known Allergies Allergy (Verified 11/04/17 08:13) Home Medications: Hydralazine HCl [Apresoline] 25 mg PO TID 11/04/17 Nifedipine [Nifedipine ER] 60 mg PO DAILY 11/04/17 Terazosin HCl 10 mg PO BID 11/04/17 Sevelamer HCl [Renagel] 800 mg PO TID 02/04/18 Clindamycin HCl 600 mg PO TID #21 capsule 02/08/18 Tramadol HCl [Ultram] 50 mg PO TID PRN #21 tablet 02/08/18 Amiodarone HCl [Pacerone] 100 mg PO DAILY 07/31/21 Bupropion *Xl* [Wellbutrin XL*] 150 mg PO DAILY 07/31/21 Carvedilol [Coreg] 25 mg PO BID 07/31/21 Gabapentin 100 mg PO BID 07/31/21 Losartan Potassium 50 mg PO DAILY 07/31/21 Pantoprazole [Protonix Tab*] 40 mg PO DAILY 07/31/21 Warfarin Sodium [Coumadin*] 5 mg PO DAILY 07/31/21 cloNIDine HCL [Catapres] 0.3 mg PO TID 07/31/21 - Past Medical/Surgical History Diabetic: No -: Hypertension -: End-stage renal disease -: Diastolic CHF -: Anemia of chronic disease -: Thrombocytopenia -: pulmonary edema -: hx-afib- resolved -: Dialysis access placement-rt chest wall -: dialysis access-right chest wall Psychosocial/ Personal History: The patient is single. He has 9 children. He does not work. He recently got out of correction in May of 2016. - Family History Mother Medical History: Heart disease - Social History Alcohol use: No CD- Drugs: No Caffeine use: Yes Review of Systems 10-point ROS is otherwise unremarkable Physical Examination - Vital Signs Temperature: 98.3 F Blood Pressure: 216/142 Pulse: 72 Respirations: 18 Pulse Ox (%): 97 - Physical Exam General: Alert, In no apparent distress, Oriented x3 HEENT: Atraumatic, PERRLA, Mucous membr. moist/pink, EOMI, Sclerae nonicteric Neck: Supple, 2+ carotid pulse no bruit, No LAD, Without JVD or thyroid abnormality Respiratory: Clear to auscultation bilaterally, Normal air movement Cardiovascular: Regular rate/rhythm, Normal S1 S2 Gastrointestinal: Normal bowel sounds, No tenderness Musculoskeletal: No tenderness Integumentary: No rashes Neurological: Normal gait, Normal speech, Normal strength at 5/5 x4 extr, Normal tone, Normal affect Lymphatics: No axilla or inguinal lymphadenopathy - Studies Laboratory Data (last 24 hrs) 07/31/21 04:45: Sodium 133 L, Potassium 7.9 H*, BUN 90 H, Creatinine 13.90 H*, Glucose 90 07/31/21 04:45: WBC 5.30, Hgb 12.7 L, Hct 40.8, Plt Count 190 Assessment & Plan - Problems (Diagnosis) (1) Atrial fibrillation Onset Date: 11/18/17 Current Visit: No Status: Acute (2) CHF (congestive heart failure) Onset Date: 09/13/17 Current Visit: No Status: Chronic Qualifiers: Heart failure type: diastolic Heart failure chronicity: chronic Qualified Code(s): I50.32 - Chronic diastolic (congestive) heart failure (3) End stage renal disease Onset Date: 10/01/17 Current Visit: No Status: Chronic (4) HTN (hypertension) Onset Date: 10/21/17 Current Visit: No Status: Chronic (5) Pulmonary hypertension Onset Date: 09/13/17 Current Visit: No Status: Chronic (6) Afib Current Visit: No Status: Resolved Qualifiers: - Plan Plan: 1. Strict blood pressure control 2. Hemodialysis 3. Continue cardiac meds 4. Cardiology consultation 5. Echocardiogram 6. Nephrology consultation for dialysis 7. GI and DVT prophylaxis Discharge Plan: Home Plan to discharge in: Greater than 2 days - Advance Directives Does patient have a Living Will: No Does patient have a Durable POA for Healthcare: No - Code Status/Comfort Care Code Status Assessed: Yes Code Status: Full Code Critical Care: No Time Spent Managing PTS Care (In Minutes): 45
[2021-07-31] MEDS ORDERED: GABAPENTIN 100 MG CAP PO SCH (21:00)
[2021-07-31] MEDS ORDERED: Nicardipine in Saline, Iso-Osm 20 MG/200 ML IV.SOLN. IV SCH (21:00)
[2021-07-31] MEDS ORDERED: carvediloL 25 MG TAB PO SCH (21:00)
[2021-07-31] MEDS ORDERED: HYDRALAZINE HCL 25 MG TABLET PO SCH (21:00)
[2021-07-31] MEDS ORDERED: CLONIDINE HCL 0.3 MG TAB PO SCH (21:00)
[2021-07-31] MEDS ORDERED: HOME MED 1 EA UNK (Nifedipine [Nifedipine Er] 60 MG) PO SCH (21:15)
[2021-07-31] MEDS ORDERED: LOSARTAN POTASSIUM 50 MG TABLET PO SCH (21:15)
--- NOTE | 2021-07-31 21:16 | P.DS ---
Discharge Date: 07/31/21 Disposition: AMA-LEFT AGAINST MEDICAL ADVIC Reason for Admission: Uncontrolled hypertension - Problems (1) Atrial fibrillation Onset Date: 11/18/17 Current Visit: No Status: Acute (2) CHF (congestive heart failure) Onset Date: 09/13/17 Current Visit: No Status: Chronic Qualifiers: Heart failure type: diastolic Heart failure chronicity: chronic Qualified Code(s): I50.32 - Chronic diastolic (congestive) heart failure (3) End stage renal disease Onset Date: 10/01/17 Current Visit: No Status: Chronic (4) HTN (hypertension) Onset Date: 10/21/17 Current Visit: No Status: Chronic (5) Pulmonary hypertension Onset Date: 09/13/17 Current Visit: No Status: Chronic (6) Afib Current Visit: No Status: Resolved Qualifiers: Brief History of Present Illness: Patient is a 46-year-old gentleman who came to the hospital with uncontrolled hypertension. Patient's blood pressure was 240/140. Patient was also on hemodialysis. Patient has not been compliant with his hemodialysis. Patient came into the emergency room for further evaluation. Hospital Course: Patient did not want remain in the hospital. He decided to sign out against medical advice. Vital Signs/Physical Exam: Temp Pulse Resp BP Pulse Ox 98.3 F 72 18 216/142 H 97 07/31/21 20:52 07/31/21 20:52 07/31/21 20:52 07/31/21 20:52 07/31/21 20:52 General: Alert, In no apparent distress, Oriented x3 Laboratory Data at Discharge: WBC 5.30 K/uL (4.3-10.9) 07/31/21 04:45 Hgb 12.7 g/dL (13.6-17.9) L 07/31/21 04:45 Hct 40.8 % (39.6-49.0) 07/31/21 04:45 Plt Count 190 K/uL (152-406) 07/31/21 04:45 Sodium 133 mmol/L (136-145) L 07/31/21 04:45 Potassium 7.9 mmol/L (3.5-5.1) H* 07/31/21 04:45 BUN 90 mg/dL (7-18) H 07/31/21 04:45 Creatinine 13.90 mg/dL (0.55-1.3) H* 07/31/21 04:45 Glucose 90 mg/dL (74-106) 07/31/21 04:45 Home Medications: Hydralazine HCl [Apresoline] 25 mg PO TID 11/04/17 Nifedipine [Nifedipine ER] 60 mg PO DAILY 11/04/17 Terazosin HCl 10 mg PO BID 11/04/17 Sevelamer HCl [Renagel] 800 mg PO TID 02/04/18 Clindamycin HCl 600 mg PO TID #21 capsule 02/08/18 Tramadol HCl [Ultram] 50 mg PO TID PRN #21 tablet 02/08/18 Amiodarone HCl [Pacerone] 100 mg PO DAILY 07/31/21 Bupropion *Xl* [Wellbutrin XL*] 150 mg PO DAILY 07/31/21 Carvedilol [Coreg] 25 mg PO BID 07/31/21 Gabapentin 100 mg PO BID 07/31/21 Losartan Potassium 50 mg PO DAILY 07/31/21 Pantoprazole [Protonix Tab*] 40 mg PO DAILY 07/31/21 Warfarin Sodium [Coumadin*] 5 mg PO DAILY 07/31/21 cloNIDine HCL [Catapres] 0.3 mg PO TID 07/31/21 Physician Discharge Instructions: Patient left against medical advice Followup: CARRIE ETIENNE [Primary Care Provider] - Time spent managing pt's care (in minutes): 35
[2021-07-31 21:44] VITALS: O2SAT 96
[2021-08-01] MEDS ORDERED: LOSARTAN POTASSIUM 50 MG TABLET PO SCH (09:00)
[2021-08-01] MEDS ORDERED: AMIODARONE HCL 200 MG TAB PO SCH (09:00)
[2021-08-01] MEDS ORDERED: HOME MED 1 EA UNK (Nifedipine [Nifedipine Er] 90 MG Tablet.Er) PO SCH (09:00)
[2021-08-01] MEDS ORDERED: BUPROPION HCL XL 150 MG TAB PO SCH (09:00)
[2021-08-01] MEDS ORDERED: PANTOPRAZOLE 40MG TABLET PO SCH (09:00)
== END 2021-07-31 21:10 | disposition left against medical advice (07) ==
LOC: ER 01:48 → ERHOLD 08:44
PROVIDERS: ADMIT Hospitalist; ATTEND Hospitalist
PROC: 5A1D70Z Performance of Urinary Filtration, Intermittent, Less than 6 Hours Per Day (ICD-10-PCS; principal; 2021-07-31)
DX: E87.5 Hyperkalemia (principal); I13.2 Hypertensive heart and chronic kidney disease with heart failure and with stage 5 chronic kidney disease, or end stage renal disease; N18.6 End stage renal disease; I50.32 Chronic diastolic (congestive) heart failure; I27.20 Pulmonary hypertension, unspecified; Z53.29 Procedure and treatment not carried out because of patient's decision for other reasons; Z99.2 Dependence on renal dialysis; Z20.822 Contact with and (suspected) exposure to COVID-19
CPT/HCPCS: 96365; 93005; 85025; 80048; 36415; 82947 ×4; 70450; 90935; 94640; 96375; 99285; U0003; J0360 ×2; J1644 ×2; J0610

== ENCOUNTER 2021-08-22 16:24 | Emergency (ER) | payer OTHER ==
--- OUTSIDE RECORDS SUMMARY | 2021-08-22 16:48 | XMS REPORT | Continuity of Care Document ---
:1975 Author Organization [facility] t Address [address] [place] [address] Care Team Providers Name Role Phone Pcp [...] Number Effective Date Expiration Date S harish [facility] [id number] 2017 PLUS 00:00:00 MEDICAID OF [place] [id number] 2019 00:00:00 [facility] [id number] 2018 PLAN 00:00:00 Problems Condition Condition Condition Status Onset Resolution Last Treating Co mments Source Name Details Category Date Date Treatment Clinician Date s/p s/p Disease Active [facility] MVReplace MVReplace 01-11 [facility] - [facility] - 00:00: Medica l Omar - Omar - 00 Cent er 01/11/21 01/11/21 Endocardit Endocardit Disease Active [facility] is is 01-11 [facility] - 00:00: Medical 00 [place] Mitral Mitral Disease Active [facility]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 01-11 [facility] - regurgitat regurgitat 00:00: Me dical ion ion 00 Center ESRD (end ESRD (end Disease Active Overview: Univers stage stage 3-11 Added ity of renal renal 00:00: automatic [place] disease) disease) 00 ally from [facility] request Branch for surgery [id number] HYPERTENSI Diagnosis Active 2018-062019-04-02 Memoria VE THALAMI 0-06 22:34:00 l 00:00: [place] HYPERTENSI 00 VE THALAMI Active 03/15/2019 [facility] Hyperkalem Hyperkalem Disease Active [facility] ia ia 02-02kes - 00:00: Medical 00 Center Shock Shock Disease Active [facility] Right Right Disease Active [facility] ventricula ventricula Chidi kes - r r Medical dysfunctio dysfunctio Ce nter n n Acute Acute Disease Active [facility] blood loss blood loss [facility] anemia anemia [facility] Thrombocyt Thrombocyt Disease Active [facility] openia openia [facility] Hyperglyce Hyperglyce Disease Active [facility] sylwia sylwia [facility] ESRD (end ESRD (end Disease Active [facility] stage stage [facility] - renal renal Medical disease) disease) Center on on dialysis dialysis Delirium Delirium Disease Active [facility] t due to due to [facility] medical medical Medical condition condition Cent er with with behavioral behavioral disturbanc disturbanc e e Essential Essential Disease Active [facility] hypertensi hypertensi [facility]idi kes - on on Medical Center Cardiac Cardiac Disease Active [facility] arrest arrest [facility] Cardiogeni Cardiogeni Disease Active [facility] c shock c shock [facility] PEA PEA Disease Active [facility] (Pulseless (Pulseless Chidi kes - electrical electrical Me dical activity) activity) Cent er Hypovolemi Hypovolemi Disease Active [facility] c shock c shock [facility] Hemorrhagi Hemorrhagi Disease Active [facility] c shock c shock [facility] Metabolic Metabolic Disease Active [facility] acidosis acidosis [facility] Lactic Lactic Disease Active [facility] acidosis acidosis [facility] Hypoglycem Hypoglycem Disease Active [facility] ia ia [facility] Hemothorax Hemothorax Disease Active C [facility] on left on left [facility] Coagulopat Coagulopat Disease Active C [facility] hy hy [facility] Vasogenic Vasogenic Disease Active [facility] shock shock [facility] Anemia, Anemia, Disease Active [facility] unspecifie unspecifie Chidi s - d type d type [facility] Acute Acute Disease Active [facility] respirator respirator [facility]idi kes - y failure y failure Medi diallo with with Center hypoxia hypoxia HYPERTENSI Diagnosis Active 2019-04-02 Memoria VE 22:34:00 l EMERGENCY [place] HYPERTENSI VE EMERGENCY Active [facility] Allergies, Adverse Reactions, Alerts Allergy Allergy Status Severity Reaction(s) Onset Inactive Treating Comm ents Source Name Type Date Date Clinician NO KNOWN Drug Active Univers ALLERGIE [facility] NO KNOWN Allergy Active [facility] ALLERGIE [facility] Social History Social Habit Start Date Stop Date Quantity Comments Source History SD[facility] - Alcohol Std Medical Cente r Drinks History [facility] - Alcohol Binge Medical Eleuterio ter Exposure to Not sure [facility] - SARS-CoV-2 [facility] (event[facility] Sex Assigned At [facility] Alcohol intake 2021-01-23 2021-01-[address] - 00:00:00 00:00:00 non-drinker of Medical Ce nter alcohol (finding) Tobacco use and 2019-08-19 2019-08-19 Never used Universit y of exposure 00:00:00 00:00:00 [facility] History SDOH 2019-02-18 2019-02-[address] [facility] - Alcohol Frequency 00:00:00 00:00:00 Medical Center Smoking Status Start Date Stop Date Source Never smoker [facility] Unknown if ever smoked [facility] Medications Ordered Filled Start Stop Current Ordering [...] MCG 16:49: mouth Medical capsule 21 daily. [place] cholecalcif Yes 5000U QD Take 5,[address] dori, 8-03 Units by [facility] - vitamin D3, 16:49: mouth Medic al 5,000 unit 21 daily. [place] Tab hydrALAZINE Yes 100mg [id number] Take [address] (APRESOLINE 8-03 [id number] mg by L ukes - ) 100 MG 16:49: 3D mouth 3 Medica l tablet 21 (three) Center times daily. ramipril Yes 10mg QD Take [address] (ALTACE) 10 8-03 by mouth Luke s - MG capsule 16:49: daily. Medic al 21 [place] sevelamer 0 Yes 800mg Take [address] (RENVELA) 8-03 mg by [facility] - 800 mg 16:49: mouth 3 Medical tablet 21 (three) Center times daily with meals. calcitriol Yes .5ug QD Take 0.[address] (ROCALTROL) 8-03 mcg by [facility]ukes - 0.5 MCG 16:49: mouth Medical capsule 21 daily. [place] cholecalcif Yes 5000U QD Take 5,[address] dori, 8-03 Units by [facility]ukes - vitamin D3, 16:49: mouth Medic al 5,000 unit 21 daily. Center Tab hydrALAZINE 0 Yes 100mg [id number] Take [address] (APRESOLINE 8-03 [id number] mg by L ukes - ) 100 [...] 21 daily. Center Tab hydrALAZINE Yes 100mg Q.[id number] Take [address] (APRESOLINE 8-03 [id number] mg by L ukes - ) 100 [...] MG 00:00: mouth Medical tablet 00 daily. [place] terazosin 0 Yes 1{capsu Take [address] (HYTRIN) 10 5-24 le} capsule by Chidi kes - MG capsule 00:00: mouth 2 Medi diallo 00 (two) Center times daily as needed. minoxidiL Yes 1{tbl} QD Take [address] (LONITEN) 5-24 tablet by [facility] - 2.5 MG 00:00: mouth Medical tablet 00 daily. [place] terazosin 0 Yes 1{capsu Take [address] (HYTRIN) 10 5-24 le} capsule by Chidi kes - MG capsule 00:00: mouth 2 Medi diallo 00 (two) Center times daily as needed. metoprolol 0 Yes 1{tbl} QD Take [address] tartrate 5-17 tablet by Lukes - (LOPRESSOR) 00:00: mouth Medic al 100 MG 00 daily. [place] tablet metoprolol 0 Yes 1{tbl} QD Take [address] tartrate 5-17 tablet by Lukes - (LOPRESSOR) 00:00: mouth Medic al 100 MG 00 daily. [place] tablet metoprolol 0 Yes 1{tbl} QD Take [address] tartrate 5-17 tablet by Lukes - (LOPRESSOR) 00:00: mouth Medic al 100 MG 00 daily. [place] tablet RAMIPRIL 2019-0 Yes Take by [facility] rs ORAL 6-08 mouth. ity of 14:19: [address] SEVELAMER 2019-0 Yes Take by Univ ers HCL ORAL 6-08 mouth. ity of 14:19: [address] METOPROLOL 2019-0 Yes Take by Uni vers TARTRATE 6-08 mouth. ity of ORAL 14:19: [address] terazosin 2019-0 Yes Take by Univ ers HCl (HYTRIN 6-08 mouth. ity of ORAL) 14:19: [address] RAMIPRIL 2020-0 Yes Take by Unive rs ORAL 6-08 mouth. ity of 14:19: [address] SEVELAMER 2019-0 Yes Take by Univ ers HCL ORAL 6-08 mouth. ity of 14:19: [address] METOPROLOL 2019-0 Yes Take by Uni vers TARTRATE 6-08 mouth. ity of ORAL 14:19: [address] terazosin 0 Yes Take by Univ ers HCl (HYTRIN 6-08 mouth. ity of ORAL) 14:19: [address] RAMIPRIL 2019-0 Yes Take by Unive rs ORAL 6-08 mouth. ity of 14:19: [address] SEVELAMER 2019-0 Yes Take by Univ ers HCL ORAL 6-08 mouth. ity of 14:19: [address] METOPROLOL 2019-0 Yes Take by Uni vers TARTRATE 6-08 mouth. ity of ORAL 14:19: [address] terazosin Yes Take by Univ ers HCl (HYTRIN 6-08 mouth. ity of ORAL) 14:19: [address] No known No Univers medications ity [facility] No known No Univers medications ity [facility] No known No Univers medications ity [facility] No known No Univers medications ity [facility] No known No Univers medications ity [facility] No known No Univers medications ity [facility] No known No [facility] Vital Signs Vital Name Observation [...] 2019-08-19 16:08:00 121 mm[Hg] Univer sity of [facility] Diastolic blood 2019-08-19 16:08:00 57 mm[Hg] [facility] Heart rate 2019-08-19 16:08:00 76 /min [facility] Body temperature 2019-08-19 16:08:00 36.5 Floridalma [facility] Respiratory rate 2019-08-19 16:08:00 18 /min [facility] Body height 2019-08-19 16:08:00 180.3 cm [facility] Body weight 2019-08-19 16:08:00 86.773 kg [facility] BMI 2019-08-19 16:08:00 26.68 kg/m2 [facility] Heart rate 2021-02-02 12:00:00 63 /min [facility] Body temperature 2021-02-02 12:00:00 37.44 Floridalma [facility] Respiratory rate 2021-02-02 12:00:00 21 /min [facility] Oxygen saturation in 2021-02-02 12:00:00 100 /min [facility] - Arterial blood by Medical Ce nter Pulse oximetry Heart rate 2021-02-02 10:45:00 63 /min [facility] Respiratory rate 2021-02-02 10:45:00 20 /min [facility] Oxygen saturation in 2021-02-02 10:45:00 100 /min [facility] - Arterial blood by Medical Ce nter Pulse oximetry Body temperature 2021-02-02 08:00:00 37.33 Floridalma [facility] Systolic blood 2021-02-02 03:46:00 172 mm[Hg] [facility] Diastolic blood 2021-02-02 03:46:00 89 mm[Hg] [facility] Body weight 2021-01-31 06:00:00 70.217 kg [facility] BMI 2021-01-31 06:00:00 19.88 kg/m2 [facility] Body height 2021-01-10 15:00:00 188 cm [facility] Procedures Procedure Date / Time Performing Clinician Source Performed POCT-GLUCOSE METER 2021-02-[address] [facility] - 07:25:00 [facility] POCT-GLUCOSE METER 2021-02-[address] [facility] - 03:45:00 [facility] PROTHROMBIN TIME/INR 2021-02-[address] [facility] - 03:36:[address] [facility] CALCIUM, IONIZED 2021-02-[address] [facility] - 03:36:[address] [facility] CBC W/PLT COUNT & AUTO 2021-02-[address] [facility] - DIFFERENTIAL 03:36:00 [facility] MAGNESIUM 2021-02-02 [facility] Kasia Mcgrath [facility] - 03:36:00 [facility] PHOSPHORUS 2021-02-[address] [facility] - 03:36:00 [facility] BASIC METABOLIC PANEL (7) 2021-02-[address] [facility] - 03:36:00 [facility] PTH, INTACT 2021-02-[address] [facility] - 03:36:[address] [facility] XR CHEST 1 VIEW PORTABLE / 2021-02-[address] [facility] - BEDSIDE 00:16:00 [facility] POCT-GLUCOSE METER 2021-02-[address] [facility] - 23:57:00 [facility] POCT-GLUCOSE METER 2021-02-[address] [facility] - 15:26:00 [facility] HEMODIALYSIS INPATIENT 2021-02-[address] [facility] - 14:59:[address] [facility] POCT-GLUCOSE METER 2021-02-[address] [facility] - 14:47:00 [facility] CT CHEST WITHOUT IV CONTRAST 2021-02-[address] [facility] - 12:29:00 [facility] [place] POCT-GLUCOSE METER 2021-02-[address] [facility] - 11:36:00 [facility] CALCIUM, IONIZED 2021-02-[address] [facility] - 04:21:[address] [facility] CBC W/PLT COUNT & AUTO 2021-02-[address] [facility] - DIFFERENTIAL 04:21:00 [facility] MAGNESIUM 2021-02-[address] [facility] - 04:21:00 [facility] PHOSPHORUS 2021-02-[address] [facility] - 04:21:00 [facility] BASIC METABOLIC PANEL (7) 2021-02-[address] [facility] - 04:21:00 [facility] PROTHROMBIN TIME/INR 2021-02-[address] [facility] - 04:21:[address] [facility] POCT-GLUCOSE METER 2021-02-[address] [facility] - 01:05:00 [facility] XR CHEST 1 VIEW PORTABLE / 2021-02-[address] [facility] - BEDSIDE 00:21:00 [facility] POCT-GLUCOSE METER 2021-01-[address] [facility] - 21:51:00 [facility] HEMOGLOBIN AND HEMATOCRIT 2021-01-[address] [facility] - 17:12:00 [facility] [place] POCT-GLUCOSE METER 2021-01-[address] [facility] - 11:25:00 [facility] POCT-GLUCOSE METER 2021-01-[address] [facility] - 07:13:00 [facility] PT/APTT 2021-01-[address] [facility] - 04:25:00 [facility] APTT 2021-01-31 Beram, Luz [facility] - 04:25:[address] [facility] BLOOD GAS, ARTERIAL 2021-01-31 Beram, Jihad [facility] - 04:25:[address] [facility] CALCIUM, IONIZED 2021-01-31 Beram, Jihad [facility] - 04:25:00 [facility] LACTIC ACID, ARTERIAL 2021-01-31 Richeybulmaro Mcgrath, Kasia [facility] - 04:25:00 [facility] CBC W/PLT COUNT & AUTO 2021-01-[address] [facility] - DIFFERENTIAL 04:25:00 [facility] MAGNESIUM 2021-01-31 Richey Mcgrath, Kasia [facility] - 04:25:00 [facility] PHOSPHORUS 2021-01-31 Richey Mcgrath, Kasia [facility] - 04:25:00 [facility] BASIC METABOLIC PANEL (7) 2021-01-[address] [facility] - 04:25:00 [facility] XR CHEST 1 VIEW PORTABLE / 2021-01-[address] [facility] - BEDSIDE 00:45:00 [facility] PREPARE LEUKO-REDUCED RBC 2021-01-[address] [facility] - 23:54:00 [facility] BLOOD GAS, ARTERIAL 2021-01-[address] [facility] - 21:04:00 [facility] BLOOD GAS, ARTERIAL 2021-01-[address] [facility] - 21:03:00 [facility] SODIUM NA-STAT LAB 2021-01-[address] [facility] - 21:03:00 [facility] POTASSIUM-STAT LAB 2021-01-[address] [facility] - 21:03:00 [facility] GLUCOSE-STAT LAB 2021-01-[address] [facility] [facility] - 21:03:00 [facility] HGB/HCT (H&H) - STAT LAB 2021-01-[address] [facility] - 21:03:00 [facility] PROTHROMBIN TIME/INR 2021-01-[address] [facility] - 19:20:00 Medical Center MAGNESIUM 2021-01-30 Beram, Luz [facility] - 19:20:[address] [facility] CALCIUM, IONIZED 2021-01-30 Beram, Jihad [facility] - 19:20:[address] [facility] BASIC METABOLIC PANEL (7) 2021-01-[address] [facility] - 19:20:00 [facility] POCT-GLUCOSE METER 2021-01-[address] [facility] - 18:36:[address] [facility] HEMODIALYSIS INPATIENT 2021-01-[address] [facility] - 14:24:20 [facility] POCT-GLUCOSE METER 2021-01-[address] [facility] - 12:27:00 [facility] PROTHROMBIN TIME/INR 2021-01-[address] [facility] - 12:18:00 [facility] POCT-GLUCOSE METER 2021-01-[address] [facility] - 06:08:00 [facility] BLOOD GAS, ARTERIAL 2021-01-30 Beram, Jijoe [facility] - 04:30:00 [facility] BLOOD GAS, ARTERIAL 2021-01-30 Beram, Luz [facility] - 02:05:00 [facility] CALCIUM, IONIZED 2021-01-30 Beram, Luz [facility] - 02:05:00 [facility] LACTIC ACID, ARTERIAL 2021-01-30 Kaiden Mcgrath, Kasia [facility] - 02:05:00 [facility] OXYGEN SATURATION, MEASURED 2021-01-[address] [facility] - 02:05:00 [facility] PT/APTT 2021-01-[address] [facility] - 02:04:00 [facility] APTT 2021-01-[address] [facility] - 02:04:[address] [facility] CBC W/PLT COUNT & AUTO 2021-01-30 [facility] Mcgrath, Kasia [facility] - DIFFERENTIAL 02:04:00 [facility] MAGNESIUM 2021-01-30 [facility] Mcgrath, Kasia [facility] - 02:04:00 [facility] PHOSPHORUS 2021-01-30 [facility] Mcgrath, Kasia [facility] - 02:04:00 [facility] BASIC METABOLIC PANEL (7) 2021-01-30 [facility] Alcides, Kasia Moon [facility] - 02:04:00 [facility] XR CHEST 1 VIEW PORTABLE / 2021-01-[facility] - [facility]ED[facility] 00:36:00 [facility] POCT-GLUCOSE METER 2021-01-29 Vall[address] Hailetik [facility] - 23:18:[address] [facility] TRANSFUSE LEUKO-REDUCED RED 2021-01-[address] [facility] - BLOOD CELLS 23:08:[address] [facility] CBC W/PLT COUNT & AUTO 2021-01-29 [facility] Alcides, Kasia [facility] - DIFFERENTIAL 19:08:00 [facility] TRANSFUSE LEUKO-REDUCED RED 2021-01-[address] [facility] - BLOOD CELLS 18:10:[address] [facility] POCT-GLUCOSE METER 2021-01-29 Valluri Yuko Nixon [facility] - 18:04:[address] [facility] PROTHROMBIN TIME/INR 2021-01-29 Martin Yungbud Back [facility] - 17:57:[address] [facility] CT BRAIN WITHOUT IV CONTRAST 2021-01-29 [address]in [facility] - 17:28:[address] [facility] CTA BRAIN 2021-01-29 Vera Yung Nazanin [facility] - 17:28:[address] [facility] APTT 2021-01-[address] [facility] - 15:06:[address] [facility] PROTHROMBIN TIME/INR 2021-01-[address] [facility] - 15:06:[address] [facility] ABORH, MANUAL 2021-01-[address] [facility] - 13:49:[address] [facility] POCT-GLUCOSE METER 2021-01-[address] [facility] - 12:15:[address] [facility] CT BRAIN WITHOUT IV CONTRAST 2021-01-[address] [facility] - 09:32:[address] [facility] RED BLOOD CELL COUNT 2021-01-[address] [facility] - 09:12:[address] [facility] PT/APTT 2021-01-[address] [facility] - 09:12:00 [facility] POCT-GLUCOSE METER 2021-01-[address] [facility] - 07:18:[address] [facility] PHOSPHORUS 2021-01-[address] [facility] - 06:11:00 [facility] MAGNESIUM 2021-01-[address] [facility] - 06:11:00 [facility] APTT 2021-01-[address] [facility] - 06:11:[address] [facility] BLOOD GAS, ARTERIAL 2021-01-[address] [facility] - 06:11:[address] [facility] CALCIUM, IONIZED 2021-01-29 [facility], Luz [facility] - 06:11:[address] [facility] LACTIC ACID, ARTERIAL 2021-01-29 Kasia Rubio [facility] - 06:11:00 [facility] OXYGEN SATURATION, MEASURED 2021-01-[address] [facility] - 06:11:00 [facility] CBC W/PLT COUNT & AUTO 2021-01-[address] [facility] - DIFFERENTIAL 06:11:00 [facility] HEPATIC FUNCTION PANEL 2021-01-[address] [facility] - 06:11:00 [facility] DIGOXIN LEVEL 2021-01-[address] [facility] - 06:11:00 [facility] BASIC METABOLIC PANEL (7) 2021-01-[address] [facility] - 06:11:00 [facility] XR CHEST 1 VIEW PORTABLE / 2021-01-[address] [facility] - BEDSIDE 00:52:00 [facility] POCT-GLUCOSE METER 2021-01-[address] [facility] - 00:43:00 [facility] POCT-GLUCOSE METER 2021-01-28 Valluri, Yuko Alicea [facility] - 18:17:[address] [facility] BLOOD GAS, ARTERIAL 2021-01-[address] [facility] - 18:13:00 [facility] POTASSIUM 2021-01-[address] [facility] - 18:11:[address] [facility] MAGNESIUM 2021-01-[address] [facility] - 18:11:00 [facility] PHOSPHORUS 2021-01-[address] [facility] - 18:11:00 [facility] SODIUM 2021-01-[address] [facility] - 18:11:00 [facility] XR CHEST 1 VIEW PORTABLE / 2021-01-28 [facility]kson [facility] 17:33:00 [facility] HEMODIALYSIS INPATIENT 2021-01-28 Vasile Moran [facility] - 12:55:00 [facility] POCT-GLUCOSE METER 2021-01-[address] [facility] - 11:44:[address] [facility] BASIC METABOLIC PANEL (7) 2021-01-[address] [facility] - 08:38:00 [facility] MAGNESIUM 2021-01-[address] [facility] - 08:38:00 [facility] PHOSPHORUS 2021-01-[address] [facility] - 08:38:00 [facility] PROTHROMBIN TIME/INR 2021-01-[address] [facility] - 08:36:00 [facility] POCT-GLUCOSE METER 2021-01-[address] [facility] - 06:13:[address] [facility] POTASSIUM 2021-01-28 Valluana maria, Yuko Nixon [facility] - 04:58:[address] [facility] APTT 2021-01-28 Beram, Luz [facility] - 04:58:[address] [facility] BLOOD GAS, ARTERIAL 2021-01-28 Beram, Joyceremy [facility] - 04:58:[address] [facility] LACTIC ACID, ARTERIAL 2021-01-28 [facility] Kasia [facility] - 04:58:00 [facility] OXYGEN SATURATION, MEASURED 2021-01-28 [facility], Kasia [facility] - 04:58:00 [facility] CBC W/PLT COUNT & AUTO 2021-01-28 [facility], Kasia [facility] - DIFFERENTIAL 04:58:00 [facility] MAGNESIUM 2021-01-28 [facility], Kasia [facility] - 04:58:00 [facility] [facility] PHOSPHORUS 2021-01-28 [facility] [place], Kasia [facility] - 04:58:00 [facility] HEPATIC FUNCTION PANEL 2021-01-[address] [facility] - 04:58:00 [facility] PROTHROMBIN TIME/INR 2021-01-[address] [facility] - 04:58:00 [facility] CALCIUM, IONIZED 2021-01-28 Ber, Jessejoe [facility] - 04:57:[address] [facility] XR CHEST 1 VIEW PORTABLE / 2021-01-28 Car[address]asia cain [facility] - BEDSIDE 03:13:00 [facility] POCT-GLUCOSE METER 2021-01-[address] [facility] - 23:51:[address] [facility] POTASSIUM 2021-01-[address] [facility] - 20:43:[address] [facility] BLOOD GAS, ARTERIAL 2021-01-27 Uk, Nddorian Bowen [facility] - 20:43:[address] [facility] LACTIC ACID, ARTERIAL 2021-01-27 Ukah, Nduka Bowen [facility] - 20:43:00 [facility] CBC (HEMOGRAM ONLY) 2021-01-27 Nacho Ayala [...] - 11:18:00 [facility] PROTHROMBIN TIME/INR 2021-01-[address] [facility] - 06:40:00 [...] [facility] 03:31:00 [facility] OXYGEN SATURATION, MEASURED 2021-01-[address] [facility] - 03:31:00 [facility] CBC W/PLT COUNT & AUTO 2021-01-27 Richey Mcgrath, Kasia [facility] - DIFFERENTIAL 03:31:00 [facility] MAGNESIUM 2021-01-27 Richeybulmaro Pickarda, Kasia [facility] - 03:31:00 [facility] PHOSPHORUS 2021-01-27 Kaiden Pickarda, Kasia [facility] - 03:31:00 [facility] HEPATIC FUNCTION PANEL 2021-01-[address] [facility] - 03:31:00 [facility] BLOOD GAS, ARTERIAL 2021-01-27 Beram, Luz [facility] - 03:30:[address] [facility] XR CHEST 1 VIEW PORTABLE / 2021-01-27 [facility] Alcides, Kasia [facility] - BEDSIDE 00:45:00 [facility] ND INSERT 2021-01-[address] [facility] - CATH,ART,PERCUT,SHORTTERM 23:51:37 [facility] POCT-GLUCOSE METER 2021-01-26 Valluri, Yuko Lillyk [facility] - 22:02:[address] [facility] PHOSPHORUS 2021-01-26 Neagra, Chuckyopher [facility] - 20:28:[address] [facility] CALCIUM, IONIZED 2021-01-26 Beram, Jihad [facility] - 20:28:[address] [facility] MAGNESIUM 2021-01-26 Beram, Jihad [facility] - 20:28:[address] [facility] BASIC METABOLIC PANEL (7) 2021-01-26 [address] Mc[address]athKasia hermosillo [facility] - 20:28:00 [facility] POTASSIUM 2021-01-26 Valluri, Yuko Nixon [facility] - 16:49:[address] [facility] POCT-GLUCOSE METER 2021-01-26 Valluri, Sri Nixon [facility] - 16:41:[address] [facility] POTASSIUM 2021-01-26 Valluri, Sri Nixon [facility] - 12:13:[address] [facility] POCT-GLUCOSE METER 2021-01-26 Valluri, Sri Nixon [facility] - 12:06:[address] [facility] PREPARE RBC 2021-01-[address] [facility] - 08:26:00 [facility] PREPARE RBC 2021-01-[address] [facility] - 08:24:00 [facility] MAGNESIUM 2021-01-[address] [facility] - [...] Beram, Jihad [facility] - 04:48:00 [facility] BLOOD GAS, ARTERIAL 2021-01-26 Beram, Jihad [facility] - 04:04:00 [facility] APTT 2021-01-26 Beram, Jessehad [facility] - 04:02:[address] [facility] CALCIUM, IONIZED 2021-01-26 Beram, Jihad [facility] - 04:02:00 [facility] LACTIC ACID, ARTERIAL 2021-01-26 RicheyKasia Aguirre [facility] 04:02:00 [facility] OXYGEN SATURATION, MEASURED 2021-01-[address] [facility] - 04:02:00 [facility] CBC W/PLT COUNT & AUTO 2021-01-[address] [facility] - DIFFERENTIAL 04:02:00 [facility] MAGNESIUM 2021-01-26 Richey Mcgrath, Kasia [facility] - 04:02:00 [facility] PHOSPHORUS 2021-01-26 Richey Mcgrath, Kasia [facility] - 04:02:00 [facility] PROTHROMBIN TIME/INR 2021-01-26 Richey Mcgrath, Kasia [facility] - 04:02:00 [facility] DIGOXIN LEVEL 2021-01-[address] [facility] - 04:02:[address] [facility] BASIC METABOLIC PANEL (7) 2021-01-[address] [facility] - 04:02:[address] [facility] XR CHEST 1 VIEW PORTABLE / 2021-01-[address] [facility] - BEDSIDE 00:20:00 [facility] POCT-GLUCOSE METER 2021-01-25 Valluri, Yuko Alicea [facility] - 21:59:00 [facility] BASIC METABOLIC PANEL (7) 2021-01-[address] [facility] - 20:28:00 [facility] MAGNESIUM 2021-01-25 Beram, Joyceremy [facility] - 20:28:00 [facility] POCT-GLUCOSE METER 2021-01-25 Valluri, Yuko Alicea [facility] - 18:07:[address] [facility] XR ABDOMEN / KUB 1 VIEW 2021-01-[address] [facility] - 18:01:[address] [facility] POTASSIUM 2021-01-25 Neagra, Rafater [facility] - 16:07:[address] [facility] PHOSPHORUS 2021-01-25 Beram, Luz [facility] - 16:07:00 [facility] MAGNESIUM 2021-01-25 Neagra, Christopher [facility] - 16:07:[address] [facility] SODIUM 2021-01-25 Neagra, Christopher [facility] - 16:07:00 [facility] BLOOD GAS, ARTERIAL 2021-01-25 Beram, Jihad [facility] - 16:07:00 [facility] CBC W/PLT COUNT & AUTO 2021-01-[address] [facility] - DIFFERENTIAL 13:55:00 [facility] POCT-GLUCOSE METER 2021-01-25 Valluri, Yuko Alicea [facility] - 13:20:00 [facility] PHOSPHORUS 2021-01-25 Beram, Jihad [facility] - 11:42:00 [facility] BASIC METABOLIC PANEL (7) 2021-01-25 [address] [facility] - 11:42:00 [facility] MAGNESIUM 2021-01-25 Neagra, Christopher [facility] - 11:42:00 [facility] CALCIUM, IONIZED 2021-01-25 Neagra, Christopher [facility] - 11:42:[address] [facility] POCT-GLUCOSE METER 2021-01-[address] [facility] [facility] - 08:07:[address] [facility] BLOOD GAS, ARTERIAL 2021-01-25 Beram, Jihad [facility] - 03:29:[address] [facility] APTT 2021-01-25 Beram, Jihad [facility] - 03:28:00 [facility] CALCIUM, IONIZED 2021-01-25 Beram, Jihad [facility] - 03:28:00 [facility] LACTIC ACID, ARTERIAL 2021-01-25 [facility] [place], Kasia [facility] - 03:28:00 [facility] OXYGEN SATURATION, MEASURED 2021-01-[address] [facility] [facility] - 03:28:00 [facility] CBC W/PLT COUNT & AUTO 2021-01-[address] [facility] - DIFFERENTIAL 03:28:00 [facility] BASIC METABOLIC PANEL (7) 2021-01-25 Richey McgrathKasia hermosillo C [facility] - 03:28:00 [facility] MAGNESIUM 2021-01-25 Richey Mcgrath, Kasia [facility] - 03:28:00 [facility] PHOSPHORUS 2021-01-25 Richey Mcgrath, Kasia [facility] - 03:28:00 [facility] PROTHROMBIN TIME/INR 2021-01-[address] [facility] - 03:28:00 [facility] XR CHEST 1 VIEW PORTABLE / 2021-01-[address] [facility] - BEDSIDE 02:31:00 [facility] POCT-GLUCOSE METER 2021-01-[address] [facility] - 00:13:[address] [facility] PREPARE LEUKO-REDUCED 2021-01-[address] [facility] - PLATELETS 23:55:00 [facility] PREPARE PLASMA 2021-01-[address] [facility] - 23:55:[address] [facility] PREPARE PLATELETS 2021-01-[address] [facility] - 23:55:00 [facility] PREPARE PLASMA 2021-01-[address] [facility] 23:[facility]:00 [facility] PREPARE RBC 2021-01-[address] [facility] - 23:54:00 [facility] PREPARE LEUKO-REDUCED 2021-01-[address] [facility] - PLATELETS 23:54:[address] [facility] SODIUM NA-STAT LAB 2021-01-[address] [facility] - 21:42:00 [facility] POTASSIUM-STAT LAB 2021-01-[address] [facility] - 21:42:00 [facility] GLUCOSE-STAT LAB 2021-01-[address] [facility] - 21:42:00 [facility] HGB/HCT (H&H) - STAT LAB 2021-01-[address] [facility] - 21:42:00 [facility] BLOOD GAS, ARTERIAL 2021-01-[address] [facility] - 21:41:00 [facility] PHOSPHORUS 2021-01-24 Beram, Luz [facility] - 18:16:00 [facility] BASIC METABOLIC PANEL (7) 2021-01-[address] [facility] - 18:16:00 [facility] MAGNESIUM 2021-01-24 Beram, Luz [facility] - 18:16:00 [facility] CBC W/PLT COUNT & AUTO 2021-01-[address] [facility] - DIFFERENTIAL 12:21:00 [facility] PHOSPHORUS 2021-01-24 Beram, Jihad [facility] - 10:25:00 [facility] POTASSIUM 2021-01-24 Beram, Jihad [facility] - 10:25:00 [facility] MAGNESIUM 2021-01-24 Beram, Jihad [facility] - 10:25:[address] [facility] BLOOD GAS, ARTERIAL 2021-01-24 Beram, Jihad [facility] - 10:25:00 [facility] POCT-GLUCOSE METER 2021-01-[address] [facility] - 08:56:[address] [facility] APTT 2021-01-24 Beram, Jessesabinoremy [facility] - 03:18:[address] [facility] BLOOD GAS, ARTERIAL 2021-01-24 Beram, Jihad [facility] - 03:18:[address] [facility] CALCIUM, IONIZED 2021-01-24 Beram, Jihad [facility] - 03:18:[address] [facility] LACTIC ACID, ARTERIAL 2021-01-24 Caro Centera, Kasia [facility] - 03:18:00 [facility] OXYGEN SATURATION, MEASURED 2021-01-24 [facility] [place], Kasia [facility] - 03:18:00 [facility] BASIC METABOLIC PANEL (7) 2021-01-[address] [facility] [address] [facility] - 03:18:00 [facility] MAGNESIUM 2021-01-24 [facility] [place], Kasia [facility] - 03:18:00 [facility] PHOSPHORUS 2021-01-24 [facility] [place], Kasia [facility] - 03:18:00 [facility] PROTHROMBIN TIME/INR 2021-01-24 [facility] [place], Kasia [facility] - 03:18:00 [facility] CBC W/PLT COUNT & AUTO 2021-01-[address] [facility] - DIFFERENTIAL 03:18:00 [facility] HEPATIC FUNCTION PANEL 2021-01-[address] [facility] - 03:18:[address] [facility] XR CHEST 1 VIEW PORTABLE / 2021-01-24 Caro CenterKasia cain [facility] - BEDSIDE 01:39:00 [facility] CBC W/PLT COUNT & AUTO 2021-01-[address] [facility] - DIFFERENTIAL 00:31:00 [facility] BLOOD GAS, ARTERIAL 2021-01-24 Parkdale, Uselyn [facility] - 00:31:00 [facility] LACTIC ACID, ARTERIAL 2021-01-24 [place], Usejosiah [facility] - 00:31:00 [facility] PREPARE LEUKO-REDUCED RBC 2021-01-23 Elin [facility]quez [facility] PREPARE RBC 2021-01-[address] [facility] - 23:54:[address] [facility] TRANSFUSE LEUKO-REDUCED RED 2021-01-23 [place], Uselyn [facility] - BLOOD CELLS 23:42:34 [facility] POCT-GLUCOSE METER 2021-01-[address] [facility] - 23:10:[address] [facility] TRANSFUSE PLASMA 2021-01-23 Jeanette, Zaira [facility] - 21:55:[address] [facility] BASIC METABOLIC PANEL (7) 2021-01-[address] [facility] - 21:26:00 [facility] PROTHROMBIN TIME/INR 2021-01-[address] [facility] - 21:26:00 [facility] APTT 2021-01-23 Park[place], Uselyn [facility] - 21:26:00 [facility] FIBRINOGEN 2021-01-23 [place], Uselyn [facility] - 21:26:00 [facility] MAGNESIUM 2021-01-23 [place], Uselyn [facility] - 21:26:00 [facility] PHOSPHORUS 2021-01-23 [place], Uselyn [facility] - 21:26:00 [facility] CALCIUM, IONIZED 2021-01-23 [place], Uselyn [facility] - 21:26:00 [facility] CBC W/PLT COUNT & AUTO 2021-01-23 [place], Uselyn [facility] - DIFFERENTIAL 21:26:00 [facility] BLOOD GAS, ARTERIAL 2021-01-23 [place], Uselyn [facility] - 21:26:00 [facility] TRANSFUSE LEUKO-REDUCED 2021-01-23 Jeanette, Zaira [facility] - PLATELETS 20:46:[address] [facility] TRANSFUSE LEUKO-REDUCED RED 2021-01-23 Richey Kasia Mcgrath [facility] - BLOOD CELLS 19:36:37 [facility] POCT-GLUCOSE METER 2021-01-[address] [facility] - 18:47:[address] [facility] CBC W/PLT COUNT & AUTO 2021-01-23 Richey McgrathKasia cain [facility] - DIFFERENTIAL 17:47:00 [facility] OXYGEN SATURATION, MEASURED 2021-01-[address] - 17:43:00 [facility] XR CHEST 1 VIEW PORTABLE / 2021-01-23 Richeybulmaro PickardKasia cain [facility] - BEDSIDE 15:54:00 [facility] BLOOD GAS, ARTERIAL 2021-01-23 Richeybulmaro Mcgrath, Kasia [facility] - 15:50:00 [facility] CBC W/PLT COUNT & AUTO 2021-01-23 [facility] McgrathKasia [facility] - DIFFERENTIAL 15:48:00 [facility] COMPREHENSIVE METABOLIC 2021-01-[address] [facility] - PANEL 15:48:00 [facility] MAGNESIUM 2021-01-[address] [facility] - 15:48:00 [facility] PHOSPHORUS 2021-01-[address] [facility] - 15:48:00 [facility] LACTIC ACID, ARTERIAL 2021-01-23 [facility]grathKasia [facility] 15:48:00 [facility] BLOOD GAS, ARTERIAL 2021-01-[address] [facility] - 15:48:00 [facility] PROTHROMBIN TIME/INR 2021-01-[address] [facility] - 15:48:00 [facility] APTT 2021-01-[address] [facility] - 15:48:00 [facility] FIBRINOGEN 2021-01-[address] [facility] - 15:48:00 [facility] SODIUM NA-STAT LAB 2021-01-[address] [facility] - 15:48:00 [facility] POTASSIUM-STAT LAB 2021-01-23 [facility] McgrathKasia [facility] - 15:48:00 [facility] GLUCOSE-STAT LAB 2021-01-[address] [facility] - 15:48:00 [facility] HGB/HCT (H&H) - STAT LAB 2021-01-[address] [facility] - 15:48:00 [facility] TRANSFUSE PLASMA 2021-01-23 Royalnanci, Alyce [facility] - 14:22:50 [facility] TRANSFUSE LEUKO-REDUCED 2021-01-[address] [facility] - PLATELETS 14:17:35 [facility] TRANSFUSE PLASMA 2021-01-23 Royalnanci, Alyce [facility] - 14:16:35 [facility] BLOOD GAS, ARTERIAL 2021-01-23 Prasanna, Alyce [facility] - 13:33:39 [facility] CALCIUM, IONIZED 2021-01-23 Royalnanci, Alyce [facility] - 13:33:39 [facility] APTT 2021-01-23 Prasanna, Alyce [facility] - 13:33:39 [facility] PROTHROMBIN TIME/INR 2021-01-[address] [facility] - 13:33:39 [facility] FIBRINOGEN 2021-01-23 Royalnanci, Alyce [facility] - 13:33:39 [facility] PLATELET COUNT 2021-01-23 Prasanna, Alyce [facility] - 13:33:39 [facility] SODIUM NA-STAT LAB 2021-01-[address] [facility] - 13:33:39 [facility] POTASSIUM-STAT LAB 2021-01-23 Royalnanci, Alyce [facility] - 13:33:39 [facility] GLUCOSE-STAT LAB 2021-01-23 Royalnanci, Alyce [facility] - 13:33:39 [facility] HGB/HCT (H&H) - STAT LAB 2021-01-23 [facility]ims [facility] 13:33:39 [facility] TRANSFUSE PLASMA 2021-01-23 [facility] TRANSFUSE LEUKO-REDUCED 2021-01-[address] [facility] - PLATELETS 13:14:42 [facility] EXPLORATION,MEDIASTINAL 2021-01-[address] [facility] - 12:39:00 [facility] TRANSFUSE LEUKO-REDUCED 2021-01-[address] [facility] - PLATELETS 11:04:16 [facility] POCT-GLUCOSE METER 2021-01-[address] [facility] - 09:50:[address] [facility] TRANSFUSE PLASMA 2021-01-[address] [facility] - 09:36:12 [facility] PHOSPHORUS 2021-01-23 Beram, Jessesabinoremy [facility] - 09:32:[address] [facility] CBC (HEMOGRAM ONLY) 2021-01-23 Beram, Luz [facility] - 09:32:[address] [facility] MAGNESIUM 2021-01-23 Beram, Luz [facility] - 09:32:[address] [facility] LACTIC ACID, ARTERIAL 2021-01-[address] [facility] [facility] - 04:04:[address] [facility] XR CHEST 1 VIEW PORTABLE / 2021-01-23 [facility] 03:53:[address] [facility] BLOOD GAS, ARTERIAL 2021-01-23 Zhaoam, Luz [facility] - 03:49:[address] [facility] OXYGEN SATURATION, MEASURED 2021-01-[address] [facility] - 03:49:00 [facility] APTT 2021-01-23 Bob, Luz [facility] - 03:48:00 [facility] CBC W/PLT COUNT & AUTO 2021-01-[address] [facility] - DIFFERENTIAL 03:48:00 [facility] PROTHROMBIN TIME/INR 2021-01-[address] [facility] - 03:48:00 [facility] MAGNESIUM 2021-01-[address] [facility] - 03:48:00 [facility] PHOSPHORUS 2021-01-[address] [facility] - 03:48:00 [facility] CALCIUM, IONIZED 2021-01-23 Zhaoam, Luz [facility] - 03:48:00 [facility] BASIC METABOLIC PANEL (7) 2021-01-23 [facility] 03:48:00 [facility] (CELLAVISION MANUAL DIFF) 2021-01-23 Jes [facility]:[address] [facility] TRANSFUSE LEUKO-REDUCED RED 2021-01-[address] [facility] - BLOOD CELLS 01:18:21 [facility] LACTIC ACID, ARTERIAL 2021-01-[address] [facility] - 00:14:00 [facility] MAGNESIUM 2021-01-23 Beram, Jessesabinoremy [facility] - 00:14:[address] [facility] CALCIUM, IONIZED 2021-01-23 Beram, Jihad [facility] - 00:14:[address] [facility] BLOOD GAS, ARTERIAL 2021-01-23 Beram, Jisabinod [facility] - 00:14:[address] [facility] BASIC METABOLIC PANEL (7) 2021-01-23 Jes Ramos [facility] 00:14:00 [facility] TRANSFUSE LEUKO-REDUCED RED 2021-01-[address] [facility] - BLOOD CELLS 21:28:48 [facility] BLOOD GAS, ARTERIAL 2021-01-22 Zhao, Luz [facility] - 20:16:[address] [facility] CBC (HEMOGRAM ONLY) 2021-01-[address] [facility] - 20:15:[address] [facility] LACTIC ACID, ARTERIAL 2021-01-22 El[facility]quez [facility]00 [facility] OXYGEN SATURATION, MEASURED 2021-01-22 Elin [facility]quez [facility]00 [facility] SODIUM NA-STAT LAB 2021-01-[address] [facility] - 20:14:00 [facility] POTASSIUM-STAT LAB 2021-01-[address] [facility] - 20:14:00 [facility] GLUCOSE-STAT LAB 2021-01-[address] [facility] - 20:14:00 [facility] HGB/HCT (H&H) - STAT LAB 2021-01-22 [facility]00 [facility] PHOSPHORUS 2021-01-[address] [facility] - 20:14:[address] [facility] PROTHROMBIN TIME/INR 2021-01-22 Ramos, Jes [facility] - 20:14:[address] [facility] APTT 2021-01-[address] [facility] - 20:14:[address] [facility] FIBRINOGEN 2021-01-22 Ramos, Jes [facility] - 20:14:[address] [facility] TRANSFUSE LEUKO-REDUCED RED 2021-01-22 [facility] BLOOD CELLS 19:33:22 [facility] CT CHEST WITH IV CONTRAST 2021-01-22 [facility]00 [facility] CT ABDOMEN/PELVIS WITH IV 2021-01-22 Elin Vasquez [facility] - CONTRAST 19:16:00 [facility] BLOOD GAS, ARTERIAL 2021-01-22 [facility]in [facility]quez [facility]00 [facility] XR CHEST 1 VIEW PORTABLE / 2021-01-22 Elin Vasquez [facility] - BEDSIDE 17:57:00 [facility] POCT-GLUCOSE METER 2021-01-[address] [facility] - 16:31:[address] [facility] PREPARE PLASMA 2021-01-22 Elin Vasquez [facility] 14:[facility]00 [facility] BLOOD GAS, ARTERIAL 2021-01-22 Elin Vasquez [facility]00 [facility] POCT-GLUCOSE METER 2021-01-22 [facility] 14:21:[address] [facility] OXYGEN SATURATION, MEASURED 2021-01-22 Elin Vasquez [facility] 13:[facility]00 [facility] POCT-GLUCOSE METER 2021-01-[address] [facility] [facility] - 13:57:[address] [facility] SODIUM NA-STAT LAB 2021-01-22 [facility]00 [facility] POTASSIUM-STAT LAB 2021-01-22 Elin Vasquez [facility] 13:[facility]00 [facility] GLUCOSE-STAT LAB 2021-01-22 Elin Vasquez [facility] 13:[facility]00 [facility] HGB/HCT (H&H) - STAT LAB 2021-01-[address] [facility] - 13:56:00 [facility] CALCIUM, IONIZED 2021-01-22 Pedro, Elin [facility] 13:56:00 [facility] CBC W/PLT COUNT & AUTO 2021-01-22 Elin Vasquez [facility] - DIFFERENTIAL 13:56:00 [facility] BLOOD GAS, ARTERIAL 2021-01-22 Pedro, Elin [facility]:00 [facility] (CELLAVISION MANUAL DIFF) 2021-01-22 [facility] LACTIC ACID, ARTERIAL 2021-01-[address] [facility] - 13:55:00 [facility] BASIC METABOLIC PANEL (7) 2021-01-22 [facility]00 [facility] MAGNESIUM 2021-01-[address] [facility] - 13:55:00 [facility] PHOSPHORUS 2021-01-[address] [facility] - 13:55:00 [facility] PROTHROMBIN TIME/INR 2021-01-[address] [facility] - 13:54:00 [facility] APTT 2021-01-22 Jaswinder Vasquezloni [facility] - 13:54:00 [facility] FIBRINOGEN 2021-01-22 Jaswinder [facility]quezloni [facility] - 13:54:00 [facility] POCT-GLUCOSE METER 2021-01-22 Ca Nolan [facility] - 13:23:[address] [facility] BLOOD GAS, ARTERIAL 2021-01-[address] [facility] - 12:04:00 [facility] POCT-GLUCOSE METER 2021-01-22 Ca Nolan [facility] - 11:45:[address] [facility] TRANSFUSE LEUKO-REDUCED RED 2021-01-22 Elin Vasquez [facility] - BLOOD CELLS 11:30:51 [facility] POCT-GLUCOSE METER 2021-01-22 Ca Nolan [facility] - 11:19:[address] [facility] POCT-GLUCOSE METER 2021-01-22 [facility], Ca DominguezJennifer [facility] - 11:06:00 [facility] POCT-GLUCOSE METER 2021-01-22 [facility], [facility] Irizarry [facility] - 10:55:[address] [facility] POCT-GLUCOSE METER 2021-01-22 [facility], Ca AngelicaJennifer [facility] - 10:48:[address] [facility] 2D ECHO W/ DOPPLER 2021-01-22 Jes Ramos [facility] - (CW/PW/COLOR) 10:39:[address] [facility] LACTIC ACID, ARTERIAL 2021-01-22 Elin Vasquez [facility] - 10:36:00 [facility] OXYGEN SATURATION, MEASURED 2021-01-22 Elin Vasquez [facility] - 10:36:00 [facility] SODIUM NA-STAT LAB 2021-01-22 Elin Vasquez [facility] - 10:36:00 [facility] POTASSIUM-STAT LAB 2021-01-22 Elin Vasquez [facility] - 10:36:00 [facility] GLUCOSE-STAT LAB 2021-01-[address] [facility] - 10:36:00 [facility] HGB/HCT (H&H) - STAT LAB 2021-01-22 Elin Vasquez [facility] - 10:36:00 [facility] TRANSFUSE LEUKO-REDUCED RED 2021-01-22 Jes Ramos [facility] - BLOOD CELLS 09:58:[address] [facility] CONTINUOUS VENOVENOUS 2021-01-22 [facility], Luz [facility] - HEMODIALYSIS 09:18:[address] [facility] APTT 2021-01-22 [facility], Luz [facility] - 09:13:[address] [facility] XR CHEST 1 VIEW PORTABLE / 2021-01-22 Elin Vasquez [facility] - BEDSIDE 08:57:00 [facility] LACTIC ACID, ARTERIAL 2021-01-22 Elin Vasquez [facility] - 08:09:00 [facility] OXYGEN SATURATION, MEASURED 2021-01-22 Elin Vasquez [facility] - 08:09:00 [facility] SODIUM NA-STAT LAB 2021-01-[address] [facility] - 08:09:00 [facility] POTASSIUM-STAT LAB 2021-01-22 Pedro, [facility]in [facility] - 08:09:00 [facility] GLUCOSE-STAT LAB 2021-01-22 Pedro, Elin [facility] - 08:09:00 [facility] HGB/HCT (H&H) - STAT LAB 2021-01-[address] [facility] - 08:09:00 [facility] BLOOD GAS, ARTERIAL 2021-01-22 Pedro, Elin [facility] - 08:09:00 [facility] APTT 2021-01-[address] [facility] - 07[facility]42:[address] [facility] XR CHEST 1 VIEW PORTABLE / 2021-01-[address] [facility] - BEDSIDE 07:08:[address] [facility] HEMOGLOBIN AND HEMATOCRIT 2021-01-22 [facility] - 06:37:[address] [facility] BASIC METABOLIC PANEL (7) 2021-01-22 [facility] - 06:35:[address] [facility] CALCIUM, IONIZED 2021-01-[address] [facility] - 06:35:[address] [facility] PROTHROMBIN TIME/INR 2021-01-[address] [facility] [facility] - 06:35:00 [facility] APTT 2021-01-[address] [facility] - 06:35:[address] [facility] FIBRINOGEN 2021-01-[address] [facility] - 06[facility]35:00 [facility] B-TYPE NATRIURETIC FACTOR 2021-01-22 [facility] - (BNP) 06:35:00 [facility] HEPATIC FUNCTION PANEL 2021-01-[address] [facility] - 06:35:[address] [facility] MAGNESIUM 2021-01-[address] [facility] - 06:35:00 [facility] [place] PHOSPHORUS 2021-01-[address] [facility] - 06:35:[address] [facility] LACTIC ACID, ARTERIAL 2021-01-22 Jes Ramos [facility] [...] [facility] - DIFFERENTIAL 02:28:00 [facility] PROTHROMBIN TIME/INR 2021-01-[address] [facility] - 02:28:00 [facility] MAGNESIUM 2021-01-[address] [facility] - 02:28:00 [facility] PHOSPHORUS 2021-01-[address] [facility] - 02:28:00 [facility] CALCIUM, IONIZED 2021-01-22 Bob, Luz [facility] - 02:28:00 [facility] LACTIC ACID, ARTERIAL 2021-01-[address] [facility] - 02:28:00 [facility] BASIC METABOLIC PANEL (7) 2021-01-22 Nanette [facility]azael [facility] - 02:28:00 [facility] OXYGEN SATURATION, MEASURED 2021-01-[address] [facility] - 02:28:00 [facility] XR CHEST 1 VIEW PORTABLE / 2021-01-22 Leonidas [facility]campo [facility] - B[facility] 01:25:00 [facility] APTT 2021-01-[address] [facility] - 01:11:00 [facility] PREPARE LEUKO-REDUCED RBC 2021-01-21 [facility] - 23:54:00 [facility] HEMOGLOBIN AND HEMATOCRIT 2021-01-21 [facility]so [facility] - 22:41:00 [facility] APTT 2021-01-[address] [facility] - 22:41:00 [facility] ECG 12-LEAD 2021-01-21 Unknown, Hl7 Doctor [facility] - 22:11:18 [facility] POCT-GLUCOSE METER 2021-01-21 An Ca T[address] [facility] - 21:40:00 [facility] BASIC METABOLIC PANEL (7) 2021-01-21 Omi, Omar [facility] - 21:32:00 [facility] PHOSPHORUS 2021-01-21 Omi, Omar [facility] - 21:32:00 [facility] MAGNESIUM 2021-01-21 Omi, Omar [facility] - 21:32:00 [facility] BLOOD GAS, ARTERIAL 2021-01-[address] [facility] - 18:59:[address] [facility] POCT-GLUCOSE METER 2021-01-[address] [facility] [facility] - 18:23:[address] [facility] PT/APTT 2021-01-[address] [facility] - 17:17:00 [facility] POCT-GLUCOSE METER 2021-01-[address] [facility] [facility] - 12:07:[address] [facility] BLOOD GAS, ARTERIAL 2021-01-[address] [facility] - 11:50:00 [facility] PT/APTT 2021-01-[address] [facility] - 11:49:00 [facility] MAGNESIUM 2021-01-[address] [facility] - 09:06:[address] [facility] PHOSPHORUS 2021-01-[address] [facility] - 09:06:[address] [facility] POTASSIUM 2021-01-[address] [facility] - 09:06:00 [facility] POCT-GLUCOSE METER 2021-01-21 Ca Nolan [address] [facility] - 08:39:00 [facility] PH, ARTERIAL 2021-01-[address] [facility] - 08:18:[address] [facility] XR CHEST 1 VIEW PORTABLE / 2021-01-21 Leonidas [facility]campo [facility] - BED[facility]IDE 03:14:00 [facility] BLOOD GAS, ARTERIAL 2021-01-[address] [facility] - 03:10:[address] [facility] CALCIUM, IONIZED 2021-01-[address] [facility] - 03:10:00 [facility] CBC W/PLT COUNT & AUTO 2021-01-[address] [facility] - DIFFERENTIAL 03:09:[address] [facility] MAGNESIUM 2021-01-[address] [facility] - 03:09:[address] [facility] APTT 2021-01-[address] [facility] - 03:09:[address] [facility] HEPATIC FUNCTION PANEL 2021-01-[address] [facility] - 03:09:[address] [facility] PROTHROMBIN TIME/INR 2021-01-[address] [facility] - 03:09:[address] [facility] BASIC METABOLIC PANEL (7) 2021-01-[address] [facility] - 03:09:[address] [facility] PREPARE LEUKO-REDUCED RBC 2021-01-[address] [facility] - 23:54:00 [facility] POCT-GLUCOSE METER 2021-01-[address] [facility] - 23:46:[address] [facility] POTASSIUM 2021-01-[address] [facility] - 21:38:00 [facility] MAGNESIUM 2021-01-[address] [facility] - 21:38:[address] [facility] PH, ARTERIAL 2021-01-20 Jarod, Jingyin [facility] - 21:38:00 [facility] PHOSPHORUS 2021-01-[address] [facility] - 21:38:00 [facility] POTASSIUM 2021-01-[address] [facility] - 18:19:00 [facility] POCT-GLUCOSE METER 2021-01-20 Ca Nolan T[address] [facility] - 18:08:00 [facility] IR TUNNELED CATHETER 2021-01-[address] [facility] - INSERTION 17:08:[address] [facility] TRANSFUSE LEUKO-REDUCED RED 2021-01-[address] [facility] - BLOOD CELLS 13:47:[address] [facility] POTASSIUM 2021-01-[address] [facility] [...] Jarod, Sadi [facility] - 09:07:00 [facility] BLOOD GAS, ARTERIAL 2021-01-20 Bob, Luz [facility] - 03:49:00 [facility] CBC W/PLT COUNT & AUTO 2021-01-[address] [facility] - DIFFERENTIAL 03:48:[address] [facility] MAGNESIUM 2021-01-[address] [facility] - 03:48:00 [facility] CALCIUM, IONIZED 2021-01-[address] [facility] - 03:48:00 [facility] PROTHROMBIN TIME/INR 2021-01-[address] [facility] - 03:48:00 [facility] BASIC METABOLIC PANEL (7) 2021-01-20 Jarod, Sadi [facility] - 03:48:00 [facility] HEPATIC FUNCTION PANEL 2021-01-[address] [facility] - 03:48:00 [facility] [place] APTT 2021-01-20 Zhaotoro, Luz [facility] - 02:04:00 [facility] XR CHEST 1 VIEW PORTABLE / 2021-01-20 Leonidas [facility]campo [facility] - BEDSIDE 01:18:[address] [facility] POTASSIUM 2021-01-[address] [facility] - 00:38:00 [facility] POCT-GLUCOSE METER 2021-01-[address] [facility] [facility] - 00:20:00 [facility] HEMOGLOBIN AND HEMATOCRIT 2021-01-20 Jes [facility] - 00:19:00 [facility] TRANSFUSE LEUKO-REDUCED RED 2021-01-[address] [facility] - BLOOD CELLS 22:29:21 [facility] [place] PH, ARTERIAL 2021-01-[address] [...] Candice Edwards [facility] - 17:12:00 [facility] CBC W/PLT COUNT & AUTO 2021-01-[address] [facility] - DIFFERENTIAL 17:12:00 [facility] POCT-GLUCOSE METER 2021-01-[address] [facility] [facility] - 11:39:00 [facility] POTASSIUM 2021-01-[address] [facility] - 11:24:00 [facility] PT/APTT 2021-01-[address] [facility] - 11:24:00 [facility] PHOSPHORUS 2021-01-[address] [facility] - 08:49:00 [facility] BLOOD GAS, ARTERIAL 2021-01-[address] [facility] - 08:49:00 [facility] POCT-GLUCOSE METER 2021-01-[address] [facility] - 06:23:00 [facility] HEMOGLOBIN AND HEMATOCRIT 2021-01-[address] [facility] - 05:41:00 [facility] CBC W/PLT COUNT & AUTO 2021-01-[address] [facility] - DIFFERENTIAL 05:41:00 [facility] BLOOD GAS, ARTERIAL 2021-01-19 Beram, Jihad [facility] - 03:47:00 [facility] CBC W/PLT COUNT & AUTO 2021-01-[address] [facility] - DIFFERENTIAL 03:46:[address] [facility] MAGNESIUM 2021-01-[address] [facility] - 03:46:00 [facility] APTT 2021-01-[address] [facility] - 03:46:[address] [facility] COMPREHENSIVE METABOLIC 2021-01-[address] [facility] - PANEL 03:46:[address] [facility] CALCIUM, IONIZED 2021-01-[address] [facility] - 03:46:00 [facility] HEPATIC FUNCTION PANEL 2021-01-[address] [facility] [facility] - 03:46:00 [facility] PROTHROMBIN TIME/INR 2021-01-[address] [facility] - 03:46:[address] [facility] (CELLAVISION MANUAL DIFF) 2021-01-[address] [facility] - 03:46:[address] [facility] XR CHEST 1 VIEW PORTABLE / 2021-01-19 [facility] 01:50:[address] [facility] XR ABDOMEN / KUB 1 VIEW 2021-01-[address] [facility] - 01:50:00 [facility] POCT-GLUCOSE METER 2021-01-[address] [facility] - 01:38:[address] [facility] POCT-GLUCOSE METER 2021-01-19 [facility] - 00:22:[address] [facility] PREPARE PLASMA 2021-01-[address] [facility] - 23:55:[address] [facility] PREPARE LEUKO-REDUCED RBC 2021-01-18 [facility]in [facility]00 [facility] POTASSIUM 2021-01-[address] [facility] - 20:05:[address] [facility] MAGNESIUM 2021-01-[address] [facility] - 20:05:[address] [facility] PH, ARTERIAL 2021-01-[address] [facility] - 20:05:00 [facility] PHOSPHORUS 2021-01-[address] [facility] - 20:05:00 [facility] HEMOGLOBIN AND HEMATOCRIT 2021-01-18 [facility] - 20:05:00 [facility] POCT-GLUCOSE METER 2021-01-18 Kendrickkluis Ca T. [facility] - 17:48:00 [facility] POTASSIUM 2021-01-[address] [facility] - 15:40:00 [facility] POTASSIUM 2021-01-[address] [facility] - 12:28:00 [facility] POCT-GLUCOSE METER 2021-01-18 [place], Ca T. [facility] - 12:28:00 [facility] XR CHEST 1 VIEW PORTABLE / 2021-01-18 Estefany Mcwilliams [facility] 08:24:00 [facility] POTASSIUM 2021-01-[address] [facility] - 08:09:00 [facility] MAGNESIUM 2021-01-[address] [facility] - 08:09:00 [facility] PHOSPHORUS 2021-01-[address] [facility] - 08:09:00 [facility] HEMOGLOBIN AND HEMATOCRIT 2021-01-18 Jes [facility] - 04:31:00 [facility] BLOOD GAS, ARTERIAL 2021-01-[address] [facility] - 03:20:[address] [facility] SARS-COV2/RT-PCR (HS & REF 2021-01-[address] [facility] - LABS) 03:16:00 [facility] CBC W/PLT COUNT & AUTO 2021-01-[address] [facility] - DIFFERENTIAL 03:13:[address] [facility] MAGNESIUM 2021-01-[address] [facility] - 03:13:00 [facility] APTT 2021-01-[address] [facility] - 03:13:[address] [facility] COMPREHENSIVE METABOLIC 2021-01-[address] [facility] - PANEL 03:13:00 [facility] PROTHROMBIN TIME/INR 2021-01-[address] [facility] - 03:13:00 [facility] LACTIC ACID, ARTERIAL 2021-01-[address] [facility] - 03:13:[address] [facility] POCT-GLUCOSE METER 2021-01-[address] [facility] - 01:05:[address] [facility] XR CHEST 1 VIEW PORTABLE / 2021-01-18 Leonidas [facility]campo [facility] 00:21:[address] [facility] PREPARE LEUKO-REDUCED RBC 2021-01-17 Jes Ramos [facility] - 23:55:[address] [facility] HEMOGLOBIN AND HEMATOCRIT 2021-01-17 Jes Ramos [facility] - 19:55:[address] [facility] POTASSIUM 2021-01-[address] [facility] - 19:49:00 [facility] MAGNESIUM 2021-01-[address] [facility] - 19:49:[address] [facility] PH, ARTERIAL 2021-01-17 Jarod, Sadi [facility] - 19:49:[address] [facility] PHOSPHORUS 2021-01-[address] - 19:49:[address] [facility] TRANSFUSE LEUKO-REDUCED RED 2021-01-[address] [facility] - BLOOD CELLS 19:14:33 [facility] POCT-GLUCOSE METER 2021-01-[address] [facility] - 18:19:[address] [facility] PROTHROMBIN TIME/INR 2021-01-[address] [facility] - 14:41:00 [facility] APTT 2021-01-[address] [facility] - 14:41:00 [facility] FIBRINOGEN 2021-01-[address] [facility] - 14:41:00 [facility] PLATELET COUNT 2021-01-[address] [facility] - 14:41:00 [facility] HEMOGLOBIN AND HEMATOCRIT 2021-01-[address] [facility] - 14:06:[address] [facility] POCT-GLUCOSE METER 2021-01-[address] [facility] - 12:31:[address] [facility] XR ABDOMEN / KUB 1 VIEW 2021-01-[address] [facility] - 12:11:00 [facility] POTASSIUM 2021-01-17 Jarod, Sadi [facility] - 11:43:00 [facility] TRANSFUSE PLASMA 2021-01-[address] [facility] - 11:34:[address] [facility] POTASSIUM 2021-01-17 Jarod, S[facility] - 07:59:[address] [facility] MAGNESIUM 2021-01-17 Jarod, Sadi [facility] - 07:59:00 [facility] PH, ARTERIAL 2021-01-17 Jarod, Edelin [facility] - 07:59:00 [facility] PHOSPHORUS 2021-01-17 [facility] - 07:59:00 [facility] HEMOGLOBIN AND HEMATOCRIT 2021-01-[address] [facility] - 07:59:[address] [facility] LACTIC ACID, ARTERIAL 2021-01-[address] [facility] - 04:08:00 [facility] CBC W/PLT COUNT & AUTO 2021-01-[address] [facility] - DIFFERENTIAL 04:08:[address] [facility] MAGNESIUM 2021-01-[address] [facility] - 04:08:[address] [facility] APTT 2021-01-[address] [facility] - 04:08:[address] [facility] COMPREHENSIVE METABOLIC 2021-01-[address] [facility] - PANEL 04:08:[address] [facility] HEPATIC FUNCTION PANEL 2021-01-[address] [facility] - 04:08:[address] [facility] BLOOD GAS, ARTERIAL 2021-01-[address] [facility] - 04:08:00 [facility] PROTHROMBIN TIME/INR 2021-01-[address] [facility] - 04:08:00 [facility] TYPE AND SCREEN, AUTOMATED 2021-01-[address] [facility] - 04:08:[address] [facility] (CELLAVISION MANUAL DIFF) 2021-01-[address] [facility] - 04:08:[address] [facility] TRANSFUSE LEUKO-REDUCED RED 2021-01-[address] [facility] - BLOOD CELLS 03:55:34 [facility] POCT-GLUCOSE METER 2021-01-[address] [facility] - 03:32:00 [facility] XR CHEST 1 VIEW PORTABLE / 2021-01-17 Leon[facility]campo [facility] 00:37:00 [facility] POTASSIUM 2021-01-16 Jarod, Jinarias [facility] - 23:11:00 [facility] PROTHROMBIN TIME/INR 2021-01-16 Ramos, Jes [facility] - 23:11:00 [facility] APTT 2021-01-16 Ramos, Jes [facility] - 23:11:00 [facility] FIBRINOGEN 2021-01-16 Ramos, Jes [facility] - 23:11:00 [facility] POCT-GLUCOSE METER 2021-01-16 Flkway, Ca Irizarry [facility] - 22:09:00 [facility] TRANSFUSE LEUKO-REDUCED RED 2021-01-[address] [facility] - BLOOD CELLS 20:31:58 [facility] LACTIC ACID, ARTERIAL 2021-01-16 Ara Cox [...] Ara Cox [facility] - 18:23:00 [facility] BLOOD CULTURE 2021-01-[address] [facility] - 18:11:00 [facility] TRANSFUSE LEUKO-REDUCED RED 2021-01-[address] [facility] - BLOOD CELLS 18:01:[address] [facility] BLOOD GAS, ARTERIAL 2021-01-16 Kenny, Ara Magdaleno [facility] - 17:03:[address] [facility] LACTIC ACID, ARTERIAL 2021-01-16 Kenny, Ara Sharla [facility] - 17:02:[address] [facility] SPUTUM CULTURE + GRAM STAIN 2021-01-16 Kenny, [facility] - 17:02:[address] [facility] ND INSERT 2021-01-[address] [facility] - CATH,ART,PERCUT,SHORTTERM 16:45:00 [facility] XR CHEST 1 VIEW PORTABLE / 2021-01-[address] [facility] - BEDSIDE 16:18:[address] [facility] PREPARE PLASMA 2021-01-16 Kenny, Ara Magdaleno [facility] - 16:15:[address] [facility] XR CHEST 1 VIEW PORTABLE / 2021-01-[address] [facility] - BEDSIDE 15:43:[address] [facility] BLOOD GAS, ARTERIAL 2021-01-16 Kenny, Ara Magdaleno [facility] - 15:41:[address] [facility] BLOOD GAS, ARTERIAL 2021-01-16 Kenny, Ara Magdaleno [facility] - 15:17:[address] [facility] 2D ECHO W/ DOPPLER 2021-01-[address] [facility] - (CW/PW/COLOR) 15:12:[address] [facility] CBC W/PLT COUNT & AUTO 2021-01-[address] [facility] - DIFFERENTIAL 15:08:[address] [facility] COMPREHENSIVE METABOLIC 2021-01-16 Kenny, Ara Magdaleno [facility] - PANEL 15:08:[address] [facility] MAGNESIUM 2021-01-16 Kenny, Ara Magdaleno [facility] [facility] [facility] PHOSPHORUS 2021-01-16 Kenny, Ara Magdaleno [facility]08:[address] [facility] CALCIUM, IONIZED 2021-01-16 Kenny, Ara Magdaleno [facility] - 15:08:[address] [facility] LACTIC ACID, ARTERIAL 2021-01-16 Kenny, Ara Magdaleno [facility] - 15:08:[address] [facility] PT/APTT 2021-01-16 Gillet, Ara Magdaleno [facility] - 15[facility]08[facility]00 [facility] TYPE AND SCREEN, AUTOMATED 2021-01-16 Gillet, Ara Magdaleno [facility] - 15:08:00 [facility] (CELLAVISION MANUAL DIFF) 2021-01-16 Gillet, Ara [...] Tyrel, Zakia [facility] - 14:21:00 [facility] POCT-BLOOD GASES, VENOUS 2021-01-16 Tyrel, Zakia [...] Leonidas Ocampo [facility] - 07:04:00 [facility] APTT 2021-01-[address] [facility] - 04:47:00 [facility] PROTHROMBIN TIME/INR 2021-01-[address] [facility] - 04:47:00 [facility] CBC W/PLT COUNT & AUTO 2021-01-[address] [facility] - DIFFERENTIAL 03:24:00 [facility] MAGNESIUM 2021-01-[address] [facility] - 03:24:00 [facility] BASIC METABOLIC PANEL (7) 2021-01-[address] [facility] - 03:24:00 [facility] PHOSPHORUS 2021-01-[address] [facility] - 03:24:00 [facility] (CELLAVISION MANUAL DIFF) 2021-01-[address] [facility] - 03:24:00 [facility] XR CHEST 1 VIEW PORTABLE / 2021-01-16 [facility]:28:[address] [facility] POCT-GLUCOSE METER 2021-01-[address] [facility] - 00:04:00 [facility] LIPID PANEL 2021-01-[address] [facility] - 22:24:[address] [facility] APTT 2021-01-[address] [facility] - 22:24:[address] [facility] POCT-GLUCOSE METER 2021-01-[address] [facility] - 12:14:00 [facility] XR CHEST 1 VIEW PORTABLE / 2021-01-15 Leon[facility] 09:00:00 [facility] APTT 2021-01-[address] [facility] - 08:48:00 [facility] POCT-GLUCOSE METER 2021-01-[address] [facility] - 08:12:00 [facility] CBC W/PLT COUNT & AUTO 2021-01-[address] [facility] - DIFFERENTIAL 03:16:00 [facility] COMPREHENSIVE METABOLIC 2021-01-15 [facility] PANEL 03:16:[address] [facility] MAGNESIUM 2021-01-[address] [facility] - 03:16:[address] [facility] PROTHROMBIN TIME/INR 2021-01-[address] [facility] - 03:16:[address] [facility] (CELLAVISION MANUAL DIFF) 2021-01-[address] [facility] - 03:16:[address] [facility] POCT-GLUCOSE METER 2021-01-[address] [facility] - 21:14:00 [facility] PROTHROMBIN TIME/INR 2021-01-[address] [facility] - 13:01:[address] [facility] HEMODIALYSIS INPATIENT 2021-01-14 [facility] - 12:00:15 [facility] ECG 12-LEAD 2021-01-14 Unknown, Hl7 Doctor [facility] - 11:17:[address] [facility] HEPATITIS B SURFACE ANTIGEN 2021-01-[address] [facility] - 10:41:00 [facility] POCT-GLUCOSE METER 2021-01-[address] [facility] - 07:20:00 [facility] POCT-GLUCOSE METER 2021-01-[facility]:35[facility] CBC W/PLT COUNT & AUTO 2021-01-14 Taye Villatoro [facility] - DIFFERENTIAL 03:29:[address] [facility] COMPREHENSIVE METABOLIC 2021-01-14 [facility] PANEL 03:29:[address] [facility] MAGNESIUM 2021-01-[address] [facility] - 03:29:[address] [facility] (CELLAVISION MANUAL DIFF) 2021-01-[address] [facility] - 03:29:[address] [facility] XR CHEST 1 VIEW PORTABLE / 2021-01-14 [facility] 01:35:00 [facility] XR CHEST 1 VIEW PORTABLE / 2021-01-13 Chapo Kennedy [facility] 19:12:00 [facility] INSERT NON-TUNNEL CV CATH 2021-01-13 [facility]29 [facility] POCT-GLUCOSE METER 2021-01-[address] [facility] - 17:25:00 [facility] BASIC METABOLIC PANEL (7) 2021-01-[address] [facility] - 15:28:00 [facility] MAGNESIUM 2021-01-[address] [facility] - 15:28:00 [facility] BLOOD GAS, ARTERIAL 2021-01-[address] [facility] - 15:28:00 [facility] POTASSIUM 2021-01-[address] [facility] - 12:29:[address] [facility] BLOOD GAS, ARTERIAL 2021-01-[address] [facility] - 11:59:[address] [facility] POCT-GLUCOSE METER 2021-01-[address] [facility] - 11:47:00 [facility] BLOOD GAS, ARTERIAL 2021-01-[address] [facility] - 09:15:00 [facility] SODIUM NA-STAT LAB 2021-01-[address] [facility] - 09:15:00 [facility] POTASSIUM-STAT LAB 2021-01-[address] [facility] - 09:15:00 [facility] GLUCOSE-STAT LAB 2021-01-[address] [facility] - 09:15:00 [facility] HGB/HCT (H&H) - STAT LAB 2021-01-[address] [facility] - 09:15:00 [facility] POTASSIUM 2021-01-[address] [facility] - 09:14:[address] [facility] MAGNESIUM 2021-01-13 [facility] [place] [facility] - 09:14:[address] [facility] PHOSPHORUS 2021-01-[address] [facility] - 09:14:[address] [facility] (CELLAVISION MANUAL DIFF) 2021-01-[address] [facility] - 03:51:[address] [facility] CBC W/PLT COUNT & AUTO 2021-01-13 Taye Villatoro [facility] - DIFFERENTIAL 03:51:[address] [facility] COMPREHENSIVE METABOLIC 2021-01-13 [facility] PANEL 03:51:00 [facility] Center MAGNESIUM 2021-01-[address] [facility] - 03:51:00 [facility] PHOSPHORUS 2021-01-[address] [facility] - 03:51:00 [facility] XR CHEST 1 VIEW PORTABLE / 2021-01-13 [facility] 00:14:00 [facility] PREPARE PLASMA 2021-01-[address] [facility] - 23:56:00 [facility] PREPARE RBC 2021-01-[address] [facility] - 23:55:00 [facility] PREPARE PLATELETS 2021-01-[address] [facility] - 23:55:00 [facility] PH, ARTERIAL 2021-01-12 Worah, [place] [facility] [...] Elin Vasquez [facility] - 12:19:00 [facility] BRONCHIAL CULTURE + GRAM 2021-01-[address] [facility] - STAIN 12:19:00 [facility] MAGNESIUM 2021-01-12 [place], [place] [facility] - 09:17:00 Medical Center PHOSPHORUS 2021-01-12 [place], [place] [facility] - 09:17:00 [facility] Center BASIC METABOLIC PANEL (7) 2021-01-12 Worah, [place] [facility] - 09:17:00 [facility] POCT-GLUCOSE METER 2021-01-[address] [facility] - 06:29:00 [facility] POCT-GLUCOSE METER 2021-01-[address] [facility] - 03:26:00 [facility] CALCIUM, IONIZED 2021-01-12 , Nacho Wiseman [facility] - 03:15:[address] [facility] LACTIC ACID, ARTERIAL 2021-01-12 Uk, Nacho Wiseman [facility] - 03:15:[address] [facility] OXYGEN SATURATION, MEASURED 2021-01-12 Uk, Nacho Wiseman [facility] - 03:15:[address] [facility] (CELLAVISION MANUAL DIFF) 2021-01-[address] [facility] - 03:07:00 [facility] PHOSPHORUS 2021-01-12 Wor, [place] [facility] - 03:07:00 [facility] MAGNESIUM 2021-01-12 Wor, [place] [facility] - 03:07:00 [facility] CBC W/PLT COUNT & AUTO 2021-01-[address] [facility] - DIFFERENTIAL 03:07:[address] [facility] COMPREHENSIVE METABOLIC 2021-01-12 T[facility] PANEL 03:07:[address] [facility] BLOOD GAS, ARTERIAL 2021-01-[address] [facility] - 03:07:00 [facility] XR CHEST 1 VIEW PORTABLE / 2021-01-12 Scotty [facility] 00:18:00 [facility] BLOOD GAS, ARTERIAL 2021-01-11 Uk, Nacho Wiseman [facility] - 22:20:[address] [facility] BASIC METABOLIC PANEL (7) 2021-01-11 Uk, Nacho Annneth [facility] - [facility]:20:[address] [facility] LACTIC ACID, ARTERIAL 2021-01-11 Uk, Nacho Wiseman [facility] - 22:20:00 [facility] BLOOD GAS, ARTERIAL 2021-01-[address] [facility] - 20:48:00 [facility] OXYGEN SATURATION, MEASURED 2021-01-[address] [facility] - 20:46:00 [facility] XR CHEST 1 VIEW PORTABLE / 2021-01-11 , Nduka Bowen [facility] 19:44:00 [facility] BLOOD GAS, ARTERIAL 2021-01-11 [facility], Nacho Wiseman [facility] - 19:36:00 Medical Center PROTHROMBIN TIME/INR 2021-01-11 [facility], Nacho Wiseman [facility] - 19:36:00 Medical Center APTT 2021-01-11 [facility], Nacho Wiseman [facility] - 19:36:00 Medical Center FIBRINOGEN 2021-01-11 [facility], Nacho Wiseman [facility] - 19:36:00 [facility] THROMBOELASTOGRAPH (TEG) 2021-01-11 [facility], Nacho Wiseman [facility] - 19:36:[address] [facility] CALCIUM, IONIZED 2021-01-11 Wor, [place] [facility] - 19:35:[address] [facility] BASIC METABOLIC PANEL (7) 2021-01-11 Mcwilliams, Ramires-Vu Mcwilliams [facility]:00 [facility] MAGNESIUM 2021-01-11 Mcwilliams, Ramires-Vu Mcwilliams [facility] - 19:35:00 [facility] PHOSPHORUS 2021-01-11 Mcwilliams, Ramires-Vu Mcwilliams [facility] - 19:[facility]:00 [facility] BLOOD GAS, ARTERIAL 2021-01-11 [facility], Nacho Wiseman [facility] - 19:35:00 [facility] LACTIC ACID, ARTERIAL 2021-01-11 [facility], Nacho Wiseman [facility] - 19:35:00 Medical Center CBC (HEMOGRAM ONLY) 2021-01-11 [facility], Nach[facility] Wiseman [facility] - 19:35:00 Medical Center SODIUM NA-STAT LAB 2021-01-11 [facility], Nach[facility] Wiseman [facility] - 19:35:00 [facility] Center POTASSIUM-STAT LAB 2021-01-11 [facility], Nacho Wiseman [facility] - 19:35:00 [facility] GLUCOSE-STAT LAB 2021-01-11 [facility], Nach[facility] Wiseman [facility] - 19:35:00 [facility] HGB/HCT (H&H) - STAT LAB 2021-01-11 [facility], Nacho Wiseman [facility] - 19:35:00 [facility] [place] TRANSFUSE PLASMA 2021-01-[address] [facility] - 18:01:[address] [facility] BLOOD GAS, ARTERIAL 2021-01-[address] [facility] - 17:36:[address] [facility] CALCIUM, IONIZED 2021-01-[address] [facility] - 17:36:[address] [facility] SODIUM NA-STAT LAB 2021-01-[address] [facility] [facility] - 17:36:44 [facility] POTASSIUM-STAT LAB 2021-01-[address] [facility] [facility] - 17:36:[address] [facility] GLUCOSE-STAT LAB 2021-01-[address] [facility] - 17:36:[address] [facility] HGB/HCT (H&H) - STAT LAB 2021-01-[address] [facility] 17:36:[address] [facility] TRANSFUSE LEUKO-REDUCED RED 2021-01-11 Andrea Sharon Weller [facility] - BLOOD CELLS 17:35:[address] [facility] TRANSFUSE LEUKO-REDUCED 2021-01-[address] [facility] - PLATELETS 17:34:[address] [facility] TRANSFUSE LEUKO-REDUCED 2021-01-[address] [facility] - PLATELETS 17:33:[address] [facility] POCT-ACT 2021-01-[address] [facility] - 17:28:00 [facility] BLOOD GAS, ARTERIAL 2021-01-[address] [facility] - 17:09:25 [facility] CALCIUM, IONIZED 2021-01-[address] [facility] - 17:09:25 [facility] PROTHROMBIN TIME/INR 2021-01-[address] [facility] - 17:09:25 [facility] APTT 2021-01-[address] [facility] - 17:09:25 [facility] FIBRINOGEN 2021-01-[address] [facility] - 17:09:25 [facility] PLATELET COUNT 2021-01-[address] [facility] - 17:09:25 [facility] SODIUM NA-STAT LAB 2021-01-[address] [facility] - 17:09:25 [facility] POTASSIUM-STAT LAB 2021-01-[address] [facility] - 17:09:25 [facility] GLUCOSE-STAT LAB 2021-01-[address] [facility] - 17:09:25 [facility] HGB/HCT (H&H) - STAT LAB 2021-01-[address] [facility] - 17:09:25 [facility] (CELLAVISION MANUAL DIFF) 2021-01-11 [address] [facility]:09:00 [facility] CBC W/PLT COUNT & AUTO 2021-01-11 Estef[facility]illiams [facility] DIFFERENTIAL 17:09:00 [facility] POCT-ACT 2021-01-[address] [facility] - 17:08:00 [facility] BLOOD GAS, ARTERIAL 2021-01-[address] [facility] - 16:42:49 [facility] CALCIUM, IONIZED 2021-01-[address] [facility] - 16:42:49 [facility] SODIUM NA-STAT LAB 2021-01-[address] [facility] - 16:42:49 [facility] POTASSIUM-STAT LAB 2021-01-[address] [facility] - 16:42:49 [facility] GLUCOSE-STAT LAB 2021-01-[address] [facility] - 16:42:49 [facility] HGB/HCT (H&H) - STAT LAB 2021-01-[address] [facility] - 16:42:49 [facility] FUNGUS CULTURE + SMEAR 2021-01-[address] [facility] - 16:15:01 [facility] SURGICALLY OBTAINED CULTURE 2021-01-[address] [facility] - + GRAM STAIN 16:15:01 [facility] POCT-ACT 2021-01-[address] [facility] - 16:01:00 [facility] BLOOD GAS, ARTERIAL 2021-01-[address] [facility] - 15:58:32 [facility] SODIUM NA-STAT LAB 2021-01-[address] [facility] - 15:58:32 [facility] POTASSIUM-STAT LAB 2021-01-[address] [facility] - 15:58:32 [facility] GLUCOSE-STAT LAB 2021-01-[address] [facility] - 15:58:32 [facility] HGB/HCT (H&H) - STAT LAB 2021-01-[address] [facility] - 15:58:32 [facility] TISSUE EXAM 2021-01-[address] [facility] - 15:53:00 [facility] POCT-ACT 2021-01-11 Benedicto Witt [facility] - 15:33:00 [facility] BLOOD GAS, ARTERIAL 2021-01-[address] [facility] - 15:30:10 [facility] SODIUM NA-STAT LAB 2021-01-[address] [facility] - 15:30:10 [facility] POTASSIUM-STAT LAB 2021-01-[address] [facility] - 15:30:10 [facility] GLUCOSE-STAT LAB 2021-01-[address] [facility] - 15:30:10 [facility] HGB/HCT (H&H) - STAT LAB 2021-01-[address] [facility] - 15:30:10 [facility] BLOOD GAS, ARTERIAL 2021-01-[address] [facility] - 14:57:31 [facility] SODIUM NA-STAT LAB 2021-01-[address] [facility] - 14:57:31 [facility] POTASSIUM-STAT LAB 2021-01-[address] [facility] - 14:57:31 [facility] GLUCOSE-STAT LAB 2021-01-[address] [facility] - 14:57:31 [facility] HGB/HCT (H&H) - STAT LAB 2021-01-[address] [facility] - 14:57:31 [facility] POCT-ACT 2021-01-[address] [facility] - 14:48:00 [facility] ANESTHESIA VANCE 2021-01-[address] [facility] - 14:31:03 [facility] POCT-ACT 2021-01-[address] [facility] - 14:28:00 [facility] BLOOD GAS, ARTERIAL 2021-01-[address] [facility] - 14:06:20 [facility] SODIUM NA-STAT LAB 2021-01-[address] [facility] - 14:06:20 [facility] POTASSIUM-STAT LAB 2021-01-[address] [facility] - 14:06:20 [facility] GLUCOSE-STAT LAB 2021-01-[address] [facility] - 14:06:20 [facility] HGB/HCT (H&H) - STAT LAB 2021-01-[address] [facility] - 14:06:20 [facility] REPLACEMENT,VALVE MITRAL 2021-01-[address] [facility] - 13:12:00 [facility] VANCE,3D 2021-01-[address] [facility] - 13:12:00 [facility] POCT-GLUCOSE METER 2021-01-[address] [facility] - 12:41:00 [facility] BLOOD GAS, ARTERIAL 2021-01-[address] [facility] - 09:38:00 [facility] BASIC METABOLIC PANEL (7) 2021-01-11 [facility] [place] [facility] - 09:22:[address] [facility] CALCIUM, IONIZED 2021-01-11 [facility] [place] [facility] - 09:22:00 [facility] PHOSPHORUS 2021-01-11 [facility] [place] [facility] 09:22:[address] [facility] MAGNESIUM 2021-01-11 [facility] [place] [facility] - 09:22:[address] [facility] XR CHEST 1 VIEW PORTABLE / 2021-01-11 Benedicto Witt [facility] 09:19:00 [facility] POCT-GLUCOSE METER 2021-01-[address] [facility] - 06:47:00 [facility] COMPREHENSIVE METABOLIC 2021-01-11 [facility] PANEL 04:05:[address] [facility] MAGNESIUM 2021-01-[address] [place] [address] [facility] - 04:05:[address] [facility] PHOSPHORUS 2021-01-[address] [facility] - 04:05:[address] [facility] BLOOD GAS, ARTERIAL 2021-01-[address] [facility] - 04:05:00 [facility] (CELLAVISION MANUAL DIFF) 2021-01-[address] [facility] - 04:04:[address] [facility] CBC W/PLT COUNT & AUTO 2021-01-[address] [facility] - DIFFERENTIAL 04:04:[address] [facility] CALCIUM, IONIZED 2021-01-[address] [facility] - 04:04:[address] [facility] POCT-GLUCOSE METER 2021-01-[address] [facility] - 00:08:00 [facility] SARS-COV2/RT-PCR (HS & REF 2021-01-[address] [facility] - LABS) 23:17:[address] [facility] BASIC METABOLIC PANEL (7) [facility]01[facility] [facility] CALCIUM, IONIZED 2021-01-10 [facility] [place] [facility] - 23:14:[address] [facility] PHOSPHORUS 2021-01-10 [facility] [place] [facility] - 23:14:[address] [facility] MAGNESIUM 2021-01-10 [facility] [place] [facility] - 23:14:[address] [facility] ND INSERT 2021-01-[address] [facility] - CATH,ART,PERCUT,SHORTTERM 19:00:12 [facility] SPUTUM CULTURE + GRAM STAIN 2021-01-[address] [facility] - 17:15:[address] [facility] BLOOD CULTURE 2021-01-[address] [facility] - 17:15:[address] [facility] 2D ECHO W/ DOPPLER 2021-01-10 Taye Villatoro [facility] - (CW/PW/COLOR) 16:47:[address] [facility] PROTHROMBIN TIME/INR 2021-01-[address] [facility] - 16:25:[address] [facility] APTT 2021-01-10 [place], Taye Kapadia [facility] - 16:25:00 [facility] FIBRINOGEN 2021-01-10 Irving, Taye Kapadia [facility] - 16:25:[address] [facility] BLOOD GAS, VENOUS 2021-01-10 Irving, Taye Kapadia [facility] - 16:25:[address] [facility] XR CHEST 1 VIEW PORTABLE / 2021-01-10 [place], [facility]ia [facility] 15:41:00 [facility] TYPE AND SCREEN, AUTOMATED 2021-01-10 [place], T[facility]adia [facility] - 15:38:[address] [facility] (CELLAVISION MANUAL DIFF) 2021-01-10 [place], [place] [facility] - 15:38:[address] [facility] CBC W/PLT COUNT & AUTO 2021-01-10 [place], [place] - DIFFERENTIAL 15:38:[address] [facility] COMPREHENSIVE METABOLIC 2021-01-10 [place], [place] [facility] - PANEL 15:38:[address] [facility] MAGNESIUM 2021-01-10 Irving, Taye Kapadia [facility] - 15:38:[address] [facility] PHOSPHORUS 2021-01-10 [place], Taye Kapadia [facility] - 15:38:[address] [facility] LACTIC ACID, VENOUS 2021-01-10 Irving, Taye Kapadia [facility] - 15:38:[address] [facility] POCT-GLUCOSE METER 2021-01-10 Trey Galvez [facility] - 15:01:00 [facility] ECG 12-LEAD 2021-01-10 Unknown, Hl7 Doctor [facility] 14:08:[address] [facility] EXTERNAL PROVIDER RECORDS 2019-08-03 Doctor Unassigned, [facility] 06:01:00 [facility] Plan of Care Planned Activity Planned Date Details Comments Source Future Scheduled 2024-01-[address] [facility] - Test 00:00:00 (procedure) [code = [facility] [id number]] Future Scheduled 2024-01-[address] [facility] - Test 00:00:00 (procedure) [code = [facility] [id number]] Future Scheduled 2024-01-[address] [facility] - Test 00:00:00 (procedure) [code = [facility] [id number]] Future Scheduled 2021-02-[address] [...] Type Clinicians Facility Department ID 2021-04-06 Outpatient [facility] [id number] [facility] 23:36:40 [facility] 2021-04-06 Outpatient [facility] [id number] Univers 13:49:25 [facility] 2021-03-14 Outpatient [id number] Memoria 16:36:28 [id number] 2021-01-09 [facility] Cardiology [id number] 00:00:00 Encounter [facility] 2019-03-15 Inpatient [facility] PUL [id number] [facility] W 17:40:00 2021-04-12 2021-04-12 Outpatient DEDE STAN [facility] [id number] 13:05:26 13:05:26 [facility] 2021-04-04 2021-04-04 [facility] [id number] [facility] 00:00:00 00:00:00 [facility] 2021-03-27 2021-03-27 Outpatient STAN [facility] [id number] [facility] 00:00:00 00:00:00 [facility] 2021-03-27 2021-03-27 Outpatient STAN [facility] [id number] [facility] 00:00:00 00:00:00 [facility] 2021-01-10 2021-03-25 Inpatient DEDE ORTIZ [facility] Emergency [id number] [facility] 14:49:00 17:10:00 AHMED 2021-03-20 2021-03-20 Outpatient STAN [facility] [id number] [facility] 00:00:00 00:00:00 [facility] 2021-03-20 2021-03-20 Outpatient STAN, [facility] [id number] [facility] 00:00:00 00:00:00 [facility] 2021-03-10 2021-03-10 Outpatient STAN [facility] [id number] [facility] 00:00:00 00:00:00 [facility] 2021-03-01 2021-03-01 Outpatient STAN [facility] [id number] [facility] 00:00:00 00:00:00 [facility] 2021-02-15 2021-02-15 Outpatient STAN [facility] [id number] [facility] 00:00:00 00:00:00 [facility] 2021-02-15 2021-02-15 Outpatient STAN [facility] [id number] [facility] 00:00:00 00:00:00 [facility] 2021-01-31 2021-01-31 Outpatient STAN [facility] [id number] [facility] 00:00:00 00:00:00 [facility] 2021-01-23 2021-01-23 Outpatient [facility] [id number] [facility] 11:45:00 23:59:00 Ellie 2021-01-23 2021-01-23 Surgery Omar, [facility] [id number] 14:18:00 16:57:00 Trey [facility] 2021-01-23 2021-01-23 Anesthesia Jaison Ariza [facility] [id number] [facility] 12:46:00 15:41:00 Event Alden Arias [facility] 2021-01-22 2021-01-22 Anesthesia Ekta, [facility] [id number] 06:27:40 06:27:40 Event Francheska [facility] 2021-01-21 2021-01-21 Travel [facility] [id number] [facility] 00:00:00 00:00:00 [facility] 2021-01-16 2021-01-16 Outpatient [place]CM [place] [id number] [facility] 00:00:00 23:59:00 [facility] 2021-01-16 2021-01-16 Anesthesia Debra, [facility] [id number] 14:00:00 14:00:00 Event Arcadio Hodge [facility] 2021-01-11 2021-01-11 Anesthesia Sharon Mendez [facility] [id number] [facility] 13:02:00 19:30:00 Event Suzie Beth [facility] 2021-01-11 2021-01-11 Surgery Omar [facility] [id number] 13:43:00 16:58:00 [facility] 2021-01-10 2021-01-10 Outpatient BCM BCM [id number] [facility] 14:49:00 23:59:00 [facility] 2021-01-10 2021-01-10 Outpatient BCM BC [id number] [facility] 14:49:00 14:49:00 [facility] 2021-01-10 2021-01-10 Orders [facility] [id number] 00:00:00 00:00:00 Only [facility] 2020-12-15 2020-12-15 [facility] [id number] Univers 13:30:00 13:30:00 WONDIFUL [id number] ity o f [facility] 2020-12-15 2020-12-15 Outpatient Tam STRAUSS [facility] [id number] Univers 13:30:00 13:30:00 WONDIFUL ity o f [facility] 2020-02-01 2020-02-01 [facility] 1.2.840.114 [id number] 00:00:00 00:00:00 Agus Tenorio SPECIALTY 350.1.13.10 [facility] 4.2.7.2.686 CENTER AT [phone] [address] 2020-02-01 2020-02-01 [facility] 1.2.840.114 [id number] Univers 00:00:00 00:00:00 Agus R SPECIALTY 350.1.13.10 it[place] [id number] Nh beth PEREZ [address] [place] [address] 2019-12-22 2019-12-22 Telephone Faculty, [facility] 1.2.840.114 [id number] 00:00:00 00:00:00 Vascular Y HEALTH 350.1.13.10 Surg CLINICS 4.2.7.2.686 [id number] [facility] 2019-12-22 2019-12-22 Telephone Faculty, [facility] 1.2.840.114 [id number] Univers 00:00:00 00:00:00 Vascular Y HEALTH 350.1.13.10 ity [place] Surg CL[place]ICS [place] [id number] [facility] [address] 2019-11-19 2019-11-[address] [facility], [facility] 1.2.840.114 [id number] 00:00:00 00:00:00 Ted Y HEALTH 350.1.13.10 CLINICS 4.2.7.2.686 [id number] [facility] 2019-11-19 2019-11-[address] [facility], [facility] 1.2.840.114 [id number] Univers 00:00:00 00:00:00 Ted Y HEALTH 350.1.13.10 i ty [place] CL[place] [id number] [place] [address] 2019-11-04 2019-11-[address] [facility], [facility] 1.2.840.114 [id number] 00:00:00 00:00:00 Ted Y HEALTH 350.1.13.10 CLINICS 4.2.7.2.686 [id number] [facility] 2019-11-04 2019-11-04 Telephone Bowen, [facility] 1.2.840.114 [id number] Univers 00:00:00 00:00:00 Ted Y HEALTH 350.1.13.10 i [place] [id number] [address] 2019-08-19 2019-09-01 Office NICOLE Bowen [id number] [id number] Univers 11:01:36 12:14:59 Visit Ted Dyson [facility] 350.1.13.10 i ty of CLINICS 4.2.7.2.686 [place] maurer [id number] [address] 2019-08-19 2019-08-19 Outpatient R ELICIA [facility] [id number] Univers 10:15:00 10:15:00 TED ity of [facility] 2019-08-03 2019-08-03 Orders Doctor BRENT 1.2.840.114 [id number] Univers 00:00:00 00:00:00 Only Unassigned, ROXIE 350.1.13.10 ity of Alafaya [facility] 4.2.7.2.686 Mark as [phone] [address] Results Test Description Test Time Test Comments Results Result Comments Source PROTHROMBIN TIME/INR 2021-03-25 06:33:53 Test Item Value Reference Range Interpretation Comme nts PROTIME (BEAKER) (test code 28.1 seconds 11.9-14.2 H = 759) INR (BEAKER) (test code = 2.67 See_Comment [ Automated message] The [employer]) system which ge nerated this result transmit ari reference range: <=5.90. The reference range was not u sed to interpret this result as normal/abnormal . RECOMMENDED COUMADIN/WARFARIN INR THERAPY RANGESSTANDARD DOSE: 2.0 - 3.0 Includes: PROPHYLAXIS forvenous thrombosis, systemic embolization; TREATMENT for venous thrombosis and/or pulmonary embolus.HIGH RISK: Target INR is 2.5-3.5 for patients with mechanical heart valves.SARS-COV2/RT-PCR ([facility]) 2021-03-25 03:01:02 Test Item Value Reference Range Interpretation Comments SARS-COV2/RT-PCR (test code = Negative Negative [id number]) Negative result for this test determines that [...] Healthcare Providers:https://www.molecular.mcdonald/jermaine/RT SARS-CoV-2 HCP Fact Sheet 51- 473044.pdfFact Sheet for Healthcare Patients:https://www.molecular.mcdonald/jermaine/RT SARS-CoV-2 Patient Fact Sheet EN 51-193788Z0.pdfBASI METABOLIC [id number] 16:24:38 Test Item Value Reference Range Interpretation [...] S NOT APPLICABLE FOR DIALYSIS PATIEN TS. Quality Control Associate ID - DBCBC (HEMOGRAM ONLY)2021-03-24 16:04:46 Test [...] = 413) RAD, CHEST, 1 VIEW, NON [id number] 15:20:00Reason for exam:->chfShould this be performed at the bedside?->Yes [facility] 1975 Sex: MAddendum BeginsREPORT STATUS:A Addendum: No evidence of active tuberculosis. Signed: Re Cantueport Verified Date/Time: 03/24/2021 15:20:26 Reading Location: [address] Neuro Reading RoomAddendum EndsFINAL REPORT RAD, [...] Cantuort Verified Date/Time: 03/14/2021 07:27:07 Reading Location: [facility] Radiology Reading Room PROTHROMBIN TIME/[id number] 04:54:57 Test Item Value Reference Range Interpretation Comments PROTIME (BEAKER) 27.8 seconds 11.9-14.2 H (test code = 759) INR (BEAKER) (test 2.63 See_Comment [Automat ed message] code = 370) The system [employer] generated this result transmitted ref erence range: <=5.90. The reference range was not used to int erpret this result as normal/abnormal . RECOMMENDED COUMADIN/WARFARIN INR THERAPY RANGESSTANDARD DOSE: 2.0 - 3.0 Includes: PROPHYLAXIS forvenous thrombosis, systemic embolization; TREATMENT for venous thrombosis and/or pulmonary embolus.HIGH RISK: Target INR is 2.5-3.5 for patients with mechanical heart valves.PROTHROMBIN TIME/[id number] 05:42:02 Test Item Value Reference Range Interpretation Comments PROTIME (BEAKER) 25.9 seconds 11.9-14.2 H (test code = 759) INR (BEAKER) (test 2.40 See_Comment [Automat ed message] code = 370) The system [employer] generated this result transmitted ref erence range: <=5.90. The reference range was not used to int erpret this result as normal/abnormal . RECOMMENDED COUMADIN/WARFARIN INR THERAPY RANGESSTANDARD DOSE: 2.0 - 3.0 Includes: PROPHYLAXIS forvenous thrombosis, systemic embolization; TREATMENT for venous thrombosis and/or pulmonary embolus.HIGH RISK: Target INR is 2.5-3.5 for patients with mechanical heart valves.BASIC METABOLIC [id number] 07:39:53 Test Item Value Reference Range Interpretation [...] S NOT APPLICABLE FOR DIALYSIS PATIEN TS. Quality Control Associate ID - PIAYA LPROTHROMBIN TIME/[id number] 06:23:41 Test Item Value Reference Range Interpretation Comments PROTIME (BEAKER) 26.2 seconds 11.9-14.2 H (test code = 759) INR (BEAKER) (test 2.43 See_Comment [Automat ed message] code = 370) The system [employer] generated this result transmitted ref erence range: [...] (BEAKER) (test code = 2801) BASIC METABOLIC [id number] 07:28:56 Test Item Value Reference Range Interpretation [...] S NOT APPLICABLE FOR DIALYSIS PATIEN TS. Quality Control Associate ID - KT GPROTHROMBIN TIME/[id number] 05:52:11 Test Item Value Reference Range Interpretation Comments PROTIME (BEAKER) 25.3 seconds 11.9-14.2 H (test code = 759) INR (BEAKER) (test 2.33 See_Comment [Automat ed message] code = 370) The system [employer] generated this result transmitted ref erence range: [...] (BEAKER) (test code = 2801) BASIC METABOLIC [id number] 06:54:24 Test Item Value Reference Range Interpretation [...] S NOT APPLICABLE FOR DIALYSIS PATIEN TS. Quality Control Associate ID - PIAYA [id number] 06:42:10 Test Item Value Reference Range Interpretation Comments MAGNESIUM (BEAKER) (test code = 2.4 mg/dL 1.6-2.6 627) Quality Control Associate ID - PIAYA LPROTHROMBIN TIME/[id number] 04:45:47 Test Item Value Reference Range Interpretation Comments PROTIME (BEAKER) 27.8 seconds 11.9-14.2 H (test code = 759) INR (BEAKER) (test 2.62 See_Comment [Automat ed message] code = 370) The system [employer] generated this result transmitted ref erence range: [...] (BEAKER) (test code = 2801) BASIC METABOLIC [id number] 06:18:33 Test Item Value Reference Range Interpretation [...] S NOT APPLICABLE FOR DIALYSIS PATIEN TS. Quality Control Associate ID - LINA [id number] 06:17:36 Test Item Value Reference Range Interpretation Comments MAGNESIUM (BEAKER) (test code = 2.3 mg/dL 1.6-2.6 627) Quality Control Associate ID - LINA LPROTHROMBIN TIME/[id number] 05:08:54 Test Item Value Reference Range Interpretation Comments PROTIME (BEAKER) 25.0 seconds 11.9-14.2 H (test code = 759) INR (BEAKER) (test 2.30 See_Comment [Automat ed message] code = 370) The system [employer] generated this result transmitted ref erence range: [...] PERCENT (BEAKER) (test code = 2801) PROTHROMBIN TIME/[id number] 08:29:25 Test Item Value Reference Range Interpretation Comments PROTIME (BEAKER) 21.5 seconds 11.9-14.2 H (test code = 759) INR (BEAKER) (test 1.90 See_Comment [Automat ed message] code = 370) The system [employer] generated this result transmitted ref erence range: <=5.90. The reference range was not used to int erpret this result as normal/abnormal . RECOMMENDED COUMADIN/WARFARIN INR THERAPY RANGESSTANDARD DOSE: 2.0 - 3.0 Includes: PROPHYLAXIS forvenous thrombosis, systemic embolization; TREATMENT for venous thrombosis and/or pulmonary embolus.HIGH RISK: Target INR is 2.5-3.5 for patients with mechanical heart valves.BASIC METABOLIC [id number] 08:04:03 Test Item Value Reference Range Interpretation [...] S NOT APPLICABLE FOR DIALYSIS PATIEN TS. Quality Control Associate ID - [id number] 07:56:20 Test Item Value Reference Range Interpretation Comments MAGNESIUM (BEAKER) (test code = 2.2 mg/dL 1.6-2.6 627) Quality Control Associate ID - DBCBC W/PLT COUNT & AUTO [id number] 06:24:39 Test Item Value Reference Range Interpretation [...] (BEAKER) (test code = 2801) BASIC METABOLIC [id number] 05:13:11 Test Item Value Reference Range Interpretation [...] S NOT APPLICABLE FOR DIALYSIS PATIEN TS. Quality Control Associate ID - [id number] 05:12:41 Test Item Value Reference Range Interpretation Comments MAGNESIUM (BEAKER) (test code = 2.0 mg/dL 1.6-2.6 627) Quality Control Associate ID - jrlPROTHROMBIN TIME/[id number] 04:43:24 Test Item Value Reference Range Interpretation Comments PROTIME (BEAKER) 19.8 seconds 11.9-14.2 H (test code = 759) INR (BEAKER) (test 1.70 See_Comment [Automat ed message] code = 370) The system [employer] generated this result transmitted ref erence range: [...] (BEAKER) (test code = 2801) BASIC METABOLIC [id number] 06:02:17 Test Item Value Reference Range Interpretation [...] S NOT APPLICABLE FOR DIALYSIS PATIEN TS. Quality Control Associate ID - LINA [id number] 05:58:16 Test Item Value Reference Range Interpretation Comments PHOSPHORUS (BEAKER) (test code = 3.5 mg/dL 2.3-4.7 604) Quality Control Associate ID - LINA [id number] 05:58:15 Test Item Value Reference Range Interpretation Comments MAGNESIUM (BEAKER) (test code = 2.0 mg/dL 1.6-2.6 627) Quality Control Associate ID - LINA LCBC W/PLT COUNT & AUTO [id number] 05:27:17 Test Item Value Reference Range Interpretation [...] PERCENT (BEAKER) (test code = 2801) PROTHROMBIN TIME/[id number] 05:24:58 Test Item Value Reference Range Interpretation Comments PROTIME (BEAKER) 19.3 seconds 11.9-14.2 H (test code = 759) INR (BEAKER) (test 1.65 See_Comment [Automat ed message] code = 370) The system [employer] generated this result transmitted ref erence range: <=5.90. The reference range was not used to int erpret this result as normal/abnormal . RECOMMENDED COUMADIN/WARFARIN INR THERAPY RANGESSTANDARD DOSE: 2.0 - 3.0 Includes: PROPHYLAXIS forvenous thrombosis, systemic embolization; TREATMENT for venous thrombosis and/or pulmonary embolus.HIGH RISK: Target INR is 2.5-3.5 for patients with mechanical heart valves.CALCIUM, [id number] 05:17:50 Test Item Value Reference Range Interpretation Comments CALCIUM IONIZED (BEAKER) (test 1.18 mmol/L 1.12-1.27 code = 698) PH, BLOOD (BEAKER) (test code = 7.44 1810) BASIC METABOLIC [id number] 04:50:11 Test Item Value Reference Range Interpretation [...] S NOT APPLICABLE FOR DIALYSIS PATIEN TS. Quality Control Associate ID - [id number] 04:37:45 Test Item Value Reference Range Interpretation Comments MAGNESIUM (BEAKER) (test code = 2.1 mg/dL 1.6-2.6 627) Quality Control Associate ID - jrlPROTHROMBIN TIME/[id number] 04:31:43 Test Item Value Reference Range Interpretation Comments PROTIME (BEAKER) 17.3 seconds 11.9-14.2 H (test code = 759) INR (BEAKER) (test 1.44 See_Comment [Automat ed message] code = 370) The system [employer] generated this result transmitted ref erence range: [...] PERCENT (BEAKER) (test code = 2801) PROTHROMBIN TIME/[id number] 07:23:37 Test Item Value Reference Range Interpretation Comments PROTIME (BEAKER) 18.6 seconds 11.9-14.2 H (test code = 759) INR (BEAKER) (test 1.58 See_Comment [Automat ed message] code = 370) The system [employer] generated this result transmitted ref erence range: <=5.90. The reference range was not used to int erpret this result as normal/abnormal . RECOMMENDED COUMADIN/WARFARIN INR THERAPY RANGESSTANDARD DOSE: 2.0 - 3.0 Includes: PROPHYLAXIS forvenous thrombosis, systemic embolization; TREATMENT for venous thrombosis and/or pulmonary embolus.HIGH RISK: Target INR is 2.5-3.5 for patients with mechanical heart valves.SARS-COV2/RT-PCR ([facility]) 2021-03-14 05:57:12 Test Item Value Reference Range Interpretation Comments SARS-COV2/RT-PCR (test code = Negative Negative [id number]) Negative result for this test determines that [...] Healthcare Providers:https://www.molecular.mcdonald/jermaine/RT SARS-CoV-2 HCP Fact Sheet 51- 170004.pdfFact Sheet for Healthcare Patients:https://www.molecular.mcdonald/jermaine/RT SARS-CoV-2 Patient Fact Sheet EN [id number].[id number] 02:21:39 Test Item Value Reference Range Interpretation Comments MAGNESIUM (BEAKER) (test code = 1.9 mg/dL 1.6-2.6 627) Quality Control Associate ID - VALDEZ MBASIC METABOLIC [id number] 02:14:15 Test Item Value Reference Range Interpretation [...] S NOT APPLICABLE FOR DIALYSIS PATIEN TS. Quality Control Associate ID - VALDEZ MHEMOGLOBIN AND [id number] 01:40:58 Test Item Value Reference Range Interpretation Comments HEMOGLOBIN (BEAKER) (test code = 8.2 GM/DL 13.7-17.5 L 410) HEMATOCRIT (BEAKER) (test code = 25.5 % 40.1-51.0 L 411) Quality Control Associate ID - [id number], [id number] 23:45:00Unlisted Reason for Exam - Click Yes and Enter Reason Below->NoWill this procedure require oral co ntrast?->[facility] : 1975 Sex: [...] (test code = 25 mg/dL 14-258 366) Quality Control Associate ID - [id number] 15:44:30 Test Item Value Reference Range Interpretation Comments FERRITIN (BEAKER) (test code = 1918.52 ng/mL 5.00-275.00 H 361) Quality Control Associate ID - DBOperator ID - DBVITAMIN B12 AND [id number] 15:41:58 Test Item Value Reference Range Interpretation Comments VITAMIN B12 (BEAKER) 524 pg/mL 213-816 (test code = 774) FOLATE (BEAKER) 6.10 ng/mL See_Comment L [Automated message] (test code = 362) The system which generated this result transmitted ref erence range: >=7.00. The reference range was not used to interpr et this result as normal/abnormal . Quality Control Associate ID - DBOperator ID - DBLACTATE DEHYDROGENASE (LDH)2021-03-13 14:43:19 Test Item Value Reference Range Interpretation Comments LACTATE DEHYDROGENASE 580 U/L 125-220 H Specim en moderately (BEAKER) (test code = hemoly zed 635) Quality Control Associate ID - GEMINI GILBERTYRN, TIBC, % SAT. (WITHOUT FERRITIN)2021-03-13 14:39:07 Test Item Value Reference Range Interpretation Comments IRON (BEAKER) (test code = 547) 63.0 ug/dL 40.0-160.0 TOTAL IRON BINDING CAPACITY 155 ug/dL 250-450 L (BEAKER) (test code = 769) IRON % SATURATION (2) (BEAKER) 41 % 20-55 (test code = 2590) Quality Control Associate ID - GEMINI FPLASMA FREE [id number] 14:30:24 Test Item Value Reference Range Interpretation Comments HEMOGLOBIN PLASMA (BEAKER) (test 90.0 mg/dl 0.0-30.0 H code = 1054) HEMOGLOBIN AND [id number] 14:23:29 Test Item Value Reference Range Interpretation Comments HEMOGLOBIN (BEAKER) (test code = 8.2 GM/DL 13.7-17.5 L 410) HEMATOCRIT (BEAKER) (test code = 24.8 % 40.1-51.0 L 411) Quality Control Associate ID - GretaRETICULOCYTE [id number] 14:23:27 Test Item Value Reference Range Interpretation Comments RETICULOCYTE COUNT PCT (BEAKER) (test 2.3 % 0.5-1.8 H code = 575) Quality Control Associate ID - [id number], CHEST, 1 VIEW, NON [id number] 09:09:00Reason for exam:->chfShould this be performed at the bedside?->Yesafter HD today qt 11 [facility] : 1975 Sex: MFINAL REPORT [...] Cantu Verified Date/Time: 03/13/2021 09:09:22 Reading Location: [facility] Radiology Reading Room BASIC METABOLIC [id number] 04:12:57 Test Item Value Reference Range Interpretation [...] S NOT APPLICABLE FOR DIALYSIS PATIEN TS. Quality Control Associate ID - KENNETH [id number] 04:09:45 Test Item Value Reference Range Interpretation Comments MAGNESIUM (BEAKER) (test code = 2.3 mg/dL 1.6-2.6 627) Quality Control Associate ID Doretha COOPER WPROTHROMBIN TIME/[id number] 03:56:35 Test Item Value Reference Range Interpretation Comments PROTIME (BEAKER) 19.0 seconds 11.9-14.2 H (test code = 759) INR (BEAKER) (test 1.62 See_Comment [Automat ed message] code = 370) The system [employer] generated this result transmitted ref erence range: [...] PERCENT (BEAKER) (test code = 2801) SARS-COV2/RT-PCR ([facility])2021-03-12 10:44:31 Test Item Value Reference Range Interpretation Comments SARS-COV2/RT-PCR (test Negative Not Detected, Negative, code = 1518877) See external report for linked test SARS-COV-2 PERFORMING LAB [facility] (test code = 0457330) Negative result for this test determines that [...] 564(g) of the Act.Fact Sheet for Healthcare Providers:https://www.[employer].Gidsy/sites/default/files/product/documents/Fact_Shee l_JB_Smkvqrdxc_Pber_EVAT-SuD-8.pdfFact Sheet for Healthcare Patients:https://www.[employer].Gidsy/sites/default/files/product/ documents/Zpbv_Chjdu_Lrjksise_Heba_FVSU-JtM-3.pdfPerforming Laboratory:[facility], [place] [address]GEO, CHEST, 1 VIEW, NON [id number] 08:32:00Reason for exam:->Assess cardiopulmonary statusShould this be performed at the bedside?->Yes [facility] : 1975 Sex: [...] Unremarkable. IMPRESSION:No significant interval change.. Signed: [facility] Verified Date/Time: 03/12/2021 08:32:05 Reading Location: [facility] B1 C013Y CT Body Reading Room BASIC METABOLIC [id number] 07:41:58 Test Item Value Reference Range Interpretation [...] S NOT APPLICABLE FOR DIALYSIS PATIEN TS. Quality Control Associate ID Doretha COOPER [facility] (HEMOGRAM ONLY)2021-03-12 05:39:27 Test Item Value Reference [...] (BEAKER) (test code = 413) BASIC METABOLIC [id number] 04:49:56 Test Item Value Reference Range Interpretation [...] S NOT APPLICABLE FOR DIALYSIS PATIEN TS. Quality Control Associate ID - KENNETH RUBIYOHANA SENSITIVITY TROPONIN [id number] 04:31:11 Test Item Value Reference Range Interpretation Comments HIGH SENSITIVITY 113 pg/ml See_Comment H [Automated message] TROPONIN I (test code The sy stem which = 8957906) generated this result transmitted ref erence range: <=35. Th e reference range was not used to int erpret this result as normal/abnormal . Quality Control Associate ID - KENNETH WThe TANKER DRIVER STAT High Sensitivity Troponin-I results should be used in conjunction with other diagnostic information such as ECG, clinical observations and information, and patient symptoms to aid in the diagnosis of [place].PROTHROMBIN TIME/[id number] 04:20:43 Test Item Value Reference Range Interpretation Comments PROTIME (BEAKER) 19.7 seconds 11.9-14.2 H (test code = 759) INR (BEAKER) (test 1.69 See_Comment [Automat ed message] code = 370) The system [employer] generated this result transmitted ref erence range: <=5.90. The reference range was not used to int erpret this result as normal/abnormal . RECOMMENDED COUMADIN/WARFARIN INR THERAPY RANGESSTANDARD DOSE: 2.0 - 3.0 Includes: PROPHYLAXIS forvenous thrombosis, systemic embolization; TREATMENT for venous thrombosis and/or pulmonary embolus.HIGH RISK: Target INR is 2.5-3.5 for patients with mechanical heart valves.BASIC METABOLIC [id number] 21:53:20 Test Item Value Reference Range Interpretation [...] S NOT APPLICABLE FOR DIALYSIS PATIEN TS. Quality Control Associate ID - [id number] 21:52:49 Test Item Value Reference Range Interpretation Comments PHOSPHORUS (BEAKER) (test code = 3.7 mg/dL 2.3-4.7 604) Quality Control Associate ID - DBCBC W/PLT COUNT & AUTO [id number] 21:37:55 Test Item Value Reference Range Interpretation [...] 0-100 H (BEAKER) (test code = 700) Quality Control Associate ID - KT GRAD, CHEST, 1 VIEW, NON [id number] 19:27:00Reason for exam:->[facility] 1975 Sex: [...] Domingo Duron MDReport Verified Date/Time: 03/11/2021 19:27:48 [id number] 19:26:03 Test Item Value Reference Range Interpretation Comments POC-GLUCOSE ([facility]) 101 mg/dL 70-110 : TESTE D AT [place] [address] (test code = 1855) [place] [facility], [address]: Quality Control Associate/Techni won ID = [id number] for MARF IL, LUCA [id number] 19:26:01 Test Item Value Reference Range Interpretation Comments POC-HEMATOCRIT 27 % 40-50 L : Quality Control Associate/Te chnician ID = ([facility]) (test code = 410057 for MARFIL, LUCA 185) [id number] 19:25:59 Test Item Value Reference Range Interpretation Comments POC-HEMOGLOBIN 9.2 g/dL 13.0-16.8 L : TESTED AT [place] [address] ([facility]) (test code = NORM [place] [facility], 1856) [address]: Quality Control Associate/Techni won ID = [id number] for MARF IL, LUCA [id number] 19:25:57 Test Item Value Reference Range Interpretation Comments POC-POTASSIUM 4.1 meq/L 3.6-5.5 : TESTED AT [place] [address] ([facility]) (test code [place] [facility], = 1540) [address]: Quality Control Associate/Techni won ID = [id number] for MARF IL, LUCA [id number] 19:25:55 Test Item Value Reference Range Interpretation Comments POC-SODIUM ([facility]) 140 meq/L 135-148 : TESTED AT [facility] 6720 (test code = 1542) [place] [place] [place], [address]: Quality Control Associate/Techni won ID = [id number] for LUCA ARAMBULA POCT-BLOOD GASES, [id number] 19:25:53 Test Item Value Reference Range Interpretation [...] 5.0 meq/L -2.0-3.0 H : TESTED AT [facility] [address] ARTERIAL-POC [facility], (BEAKER) (test code [address]: = 1841) Quality Control Associate/Techni won ID = [id number] for LUCA ARAMBULA PROTHROMBIN TIME/[id number] 05:38:58 Test Item Value Reference Range Interpretation Comments PROTIME (BEAKER) 22.0 seconds 11.9-14.2 H (test code = 759) INR (BEAKER) (test 1.95 See_Comment [Automat ed message] code = 370) The system [employer] generated this result transmitted ref erence range: <=5.90. The reference range was not used to int erpret this result as normal/abnormal . RECOMMENDED COUMADIN/WARFARIN INR THERAPY RANGESSTANDARD DOSE: 2.0 - 3.0 Includes: PROPHYLAXIS forvenous thrombosis, systemic embolization; TREATMENT for venous thrombosis and/or pulmonary embolus.HIGH RISK: Target INR is 2.5-3.5 for patients with mechanical heart valves.BASIC METABOLIC [id number] 07:13:10 Test Item Value Reference Range Interpretation [...] S NOT APPLICABLE FOR DIALYSIS PATIEN TS. Quality Control Associate ID - [id number] 07:11:21 Test Item Value Reference Range Interpretation Comments PHOSPHORUS (BEAKER) (test code = 5.0 mg/dL 2.3-4.7 H 604) Quality Control Associate ID - ADMINPROTHROMBIN TIME/[id number] 06:33:50 Test Item Value Reference Range Interpretation Comments PROTIME (BEAKER) 33.3 seconds 11.9-14.2 H (test code = 759) INR (BEAKER) (test 3.30 See_Comment [Automat ed message] code = 370) The system [employer] generated this result transmitted ref erence range: <=5.90. The reference range was not used to int erpret this result as normal/abnormal . RECOMMENDED COUMADIN/WARFARIN INR THERAPY RANGESSTANDARD DOSE: 2.0 - 3.0 Includes: PROPHYLAXIS forvenous thrombosis, systemic embolization; TREATMENT for venous thrombosis and/or pulmonary embolus.HIGH RISK: Target INR is 2.5-3.5 for patients with mechanical heart valves.BASIC METABOLIC [id number] 08:17:53 Test Item Value Reference Range Interpretation [...] S NOT APPLICABLE FOR DIALYSIS PATIEN TS. Quality Control Associate ID - ADMINPROTHROMBIN TIME/[id number] 06:12:32 Test Item Value Reference Range Interpretation Comments PROTIME (BEAKER) 35.0 seconds 11.9-14.2 H (test code = 759) INR (BEAKER) (test 3.52 See_Comment [Automat ed message] code = 370) The system [employer] generated this result transmitted ref erence range: [...] (BEAKER) (test code = 2801) HEMOGLOBIN AND [id number] 08:45:35 Test Item Value Reference Range Interpretation Comments HEMOGLOBIN (BEAKER) (test code = 6.7 GM/DL 13.7-17.5 L 410) HEMATOCRIT (BEAKER) (test code = 21.5 % 40.1-51.0 L 411) Quality Control Associate ID - [id number] METABOLIC [id number] 07:38:51 Test Item Value Reference Range Interpretation [...] S NOT APPLICABLE FOR DIALYSIS PATIEN TS. Quality Control Associate ID - GEMINI FPROTHROMBIN TIME/[id number] 07:17:17 Test Item Value Reference Range Interpretation Comments PROTIME (BEAKER) 38.7 seconds 11.9-14.2 H (test code = 759) INR (BEAKER) (test 4.00 See_Comment [Automat ed message] code = 370) The system [employer] generated this result transmitted ref erence range: [...] PERCENT (BEAKER) (test code = 2801) PROTHROMBIN TIME/[id number] 06:57:22 Test Item Value Reference Range Interpretation Comments PROTIME (BEAKER) 39.4 seconds 11.9-14.2 H (test code = 759) INR (BEAKER) (test 4.08 See_Comment [Automat ed message] code = 370) The system [employer] generated this result transmitted ref erence range: <=5.90. The reference range was not used to int erpret this result as normal/abnormal . RECOMMENDED COUMADIN/WARFARIN INR THERAPY RANGESSTANDARD DOSE: 2.0 - 3.0 Includes: PROPHYLAXIS forvenous thrombosis, systemic embolization; TREATMENT for venous thrombosis and/or pulmonary embolus.HIGH RISK: Target INR is 2.5-3.5 for patients with mechanical heart valves.PROTHROMBIN TIME/[id number] 05:52:25 Test Item Value Reference Range Interpretation Comments PROTIME (BEAKER) 36.7 seconds 11.9-14.2 H (test code = 759) INR (BEAKER) (test 3.74 See_Comment [Automat ed message] code = 370) The system [employer] generated this result transmitted ref erence range: <=5.90. The reference range was not used to int erpret this result as normal/abnormal . RECOMMENDED COUMADIN/WARFARIN INR THERAPY RANGESSTANDARD DOSE: 2.0 - 3.0 Includes: PROPHYLAXIS forvenous thrombosis, systemic embolization; TREATMENT for venous thrombosis and/or pulmonary embolus.HIGH RISK: Target INR is 2.5-3.5 for patients with mechanical heart valves.BASIC METABOLIC [id number] 05:13:18 Test Item Value Reference Range Interpretation [...] S NOT APPLICABLE FOR DIALYSIS PATIEN TS. Quality Control Associate ID - VALDEZ MCBC W/PLT COUNT & AUTO [id number] 05:00:45 Test Item Value Reference Range Interpretation [...] PERCENT (BEAKER) (test code = 2801) PROTHROMBIN TIME/[id number] 04:50:41 Test Item Value Reference Range Interpretation Comments PROTIME (BEAKER) 32.7 seconds 11.9-14.2 H (test code = 759) INR (BEAKER) (test 3.23 See_Comment [Automat ed message] code = 370) The system [employer] generated this result transmitted ref erence range: <=5.90. The reference range was not used to int erpret this result as normal/abnormal . RECOMMENDED COUMADIN/WARFARIN INR THERAPY RANGESSTANDARD DOSE: 2.0 - 3.0 Includes: PROPHYLAXIS forvenous thrombosis, systemic embolization; TREATMENT for venous thrombosis and/or pulmonary embolus.HIGH RISK: Target INR is 2.5-3.5 for patients with mechanical heart valves.HEPATITIS B [id number] 07:32:34 Test Item Value Reference Range Interpretation Comments HEPATITIS B CORE TOTAL ANTIBODY Nonreactive Nonreactive (BEAKER) (test code = 497) HEPATITIS B SURFACE ANTIBODY 2822.9 mIU/mL <8.0 H (BEAKER) (test code = 647) HEPATITIS B SURFACE ANTIGEN (2) Nonreactive Nonreactive (BEAKER) (test code = 2585) Quality Control Associate ID - EMERSONOperator ID - EMERSONBASIC METABOLIC [id number] 06:32:52 Test Item Value Reference Range Interpretation [...] S NOT APPLICABLE FOR DIALYSIS PATIEN TS. Quality Control Associate ID - JRLPROTHROMBIN TIME/[id number] 05:58:24 Test Item Value Reference Range Interpretation Comments PROTIME (BEAKER) 32.5 seconds 11.9-14.2 H (test code = 759) INR (BEAKER) (test 3.20 See_Comment [Automat ed message] code = 370) The system [employer] generated this result transmitted ref erence range: [...] (BEAKER) (test code = 2801) BASIC METABOLIC [id number] 08:24:48 Test Item Value Reference Range Interpretation [...] S NOT APPLICABLE FOR DIALYSIS PATIEN TS. Quality Control Associate ID - PIAYA LPROTHROMBIN TIME/[id number] 07:16:29 Test Item Value Reference Range Interpretation Comments PROTIME (BEAKER) 28.4 seconds 11.9-14.2 H (test code = 759) INR (BEAKER) (test 2.70 See_Comment [Automat ed message] code = 370) The system [employer] generated this result transmitted ref erence range: [...] PERCENT (BEAKER) (test code = 2801) SARS-COV2/RT-PCR ([facility])2021-03-01 11:26:13 Test Item Value Reference Range Interpretation Comments SARS-COV2/RT-PCR (test Negative Not Detected, Negative, code = 8631256) See external report for linked test SARS-COV-2 PERFORMING LAB [facility] (test code = 0339659) Negative result for this test determines that [...] 564(g) of the Act.Fact Sheet for Healthcare Providers:https://www.Lovejuice/sites/default/files/product/documents/Fact_Shee j_LC_Joxewaltu_Ifwq_AXCE-FwG-8.pdfFact Sheet for Healthcare Patients:https://www.[employer]/sites/default/files/product/ documents/Xokc_Bhduj_Qcacevxx_Lvmi_AVEY-UcM-1.pdfPerforming Laboratory:[facility], [place] [address]ONDWGVPMOJE TIME/INR 2021-03-01 04:16:38 Test Item Value Reference Range Interpretation Comments PROTIME (BEAKER) 25.5 seconds 11.9-14.2 H (test code = 759) INR (BEAKER) (test 2.35 See_Comment [Automat ed message] code = 370) The system [employer] generated this result transmitted ref erence range: [...] PERCENT (BEAKER) (test code = 2801) PROTHROMBIN TIME/[id number] 04:21:23 Test Item Value Reference Range Interpretation Comments PROTIME (BEAKER) 23.9 seconds 11.9-14.2 H (test code = 759) INR (BEAKER) (test 2.17 See_Comment [Automat ed message] code = 370) The system [employer] generated this result transmitted ref erence range: [...] (BEAKER) (test code = 2801) BASIC METABOLIC [id number] 05:21:01 Test Item Value Reference Range Interpretation [...] S NOT APPLICABLE FOR DIALYSIS PATIEN TS. Quality Control Associate ID - KT [facility] (HEMOGRAM ONLY)2021-02-27 05:14:08 Test Item Value Reference [...] 0-100 H (BEAKER) (test code = 700) Quality Control Associate ID - ADMINPROTHROMBIN TIME/[id number] 04:56:59 Test Item Value Reference Range Interpretation Comments PROTIME (BEAKER) 22.7 seconds 11.9-14.2 H (test code = 759) INR (BEAKER) (test 2.03 See_Comment [Automat ed message] code = 370) The system [employer] generated this result transmitted ref erence range: <=5.90. The reference range was not used to int erpret this result as normal/abnormal . RECOMMENDED COUMADIN/WARFARIN INR THERAPY RANGESSTANDARD DOSE: 2.0 - 3.0 Includes: PROPHYLAXIS forvenous thrombosis, systemic embolization; TREATMENT for venous thrombosis and/or pulmonary embolus.HIGH RISK: Target INR is 2.5-3.5 for patients with mechanical heart valves.PROTHROMBIN TIME/[id number] 15:31:42 Test Item Value Reference Range Interpretation Comments PROTIME (BEAKER) 23.5 seconds 11.9-14.2 H (test code = 759) INR (BEAKER) (test 2.12 See_Comment [Automat ed message] code = 370) The system [employer] generated this result transmitted ref erence range: <=5.90. The reference range was not used to int erpret this result as normal/abnormal . RECOMMENDED COUMADIN/WARFARIN INR THERAPY RANGESSTANDARD DOSE: 2.0 - 3.0 Includes: PROPHYLAXIS forvenous thrombosis, systemic embolization; TREATMENT for venous thrombosis and/or pulmonary embolus.HIGH RISK: Target INR is 2.5-3.5 for patients with mechanical heart valves.BLOOD GAS, [id number] 05:16:22 Test Item Value Reference Range Interpretation [...] (test code = 1819) 50.0 COMPREHENSIVE METABOLIC [id number] 23:42:13 Test Item Value Reference Range Interpretation [...] S NOT APPLICABLE FOR DIALYSIS PATIEN TS. Quality Control Associate ID - DBHIGH SENSITIVITY TROPONIN [id number] 23:38:42 Test Item Value Reference Range Interpretation Comments HIGH SENSITIVITY 128 pg/ml See_Comment H [Automated message] TROPONIN I (test code The stem which = 5099993) generated this result transmitted ref erence range: <=35. Th e reference range was not used to int erpret this result as normal/abnormal . Quality Control Associate ID - DBThe TANKER DRIVER STAT High Sensitivity Troponin-I results should be used in conjunctionwith other diagnostic information such as ECG, clinical observations and information, and patient symptoms to aid in the diagnosis of MO.LACTIC ACID, [id number] 23:28:44 Test Item Value Reference Range Interpretation Comments LACTATE BLOOD VENOUS 0.82 mmol/L 0.50-2.20 Specime n slightly (2) (BEAKER) (test hemolyzed code = 2872) Quality Control Associate ID - DBCBC W/PLT COUNT & AUTO [id number] 23:13:06 Test Item Value Reference Range Interpretation [...] = 2801) RAD, CHEST, 1 VIEW, NON [id number] 23:11:00Reason for exam:- >hypoxiaShould this be performed at the bedside?->Yes [facility] 1975 Sex: MFINAL REPORT [...] osseous structures are unremarkable. Signed: Kelsie Briones MDRhospital for special care Verified Date/Time: 02/25/2021 23:11:55 [id number] 22:36:53 Test Item Value Reference Range Interpretation Comments POC-GLUCOSE (BEAKER) 96 mg/dL 70-110 : TESTE D AT [facility] 6720 (test code = 1855) [place], [address]: Quality Control Associate/Techni won ID = [id number] for JESUS MANUEL SAENZ [id number] 22:36:52 Test Item Value Reference Range Interpretation Comments POC-HEMATOCRIT 25 % 40-50 L : Quality Control Associate/Te chnician ID = (BEAKER) (test code = 932771 for JESUS MANUEL ZAYAS 1857) [id number] 22:36:51 Test Item Value Reference Range Interpretation Comments POC-HEMOGLOBIN 8.5 g/dL 13.0-16.8 L : TESTED AT [facility] 6720 (BEAKER) (test code = NORM [place] [facility], 185) [address]: Quality Control Associate/Techni won ID = [id number] for RUMB AOA, JESUS MANUEL [id number] 22:36:50 Test Item Value Reference Range Interpretation Comments POC-SODIUM (BEAKER) 135 meq/L 135-148 : TESTED AT [facility] 67 (test code = 1542) [place] [facility], [address]: Quality Control Associate/Techni won ID = [id number] for RUMB AOA, JESUS MANUEL [id number] 22:36:50 Test Item Value Reference Range Interpretation Comments POC-POTASSIUM 4.2 meq/L 3.6-5.5 : TESTED AT [facility] 67 (BEAKER) (test code [facility], = 1540) [address]: Quality Control Associate/Techni won ID = [id number] for RUMB AOA, JESUS MANUEL POCT-BLOOD GASES, [id number] 22:36:49 Test Item Value Reference Range Interpretation [...] EXCESS, 1.0 meq/L -2.0-3.0 : TESTED AT [facility] [address] ARTERIAL-POC [facility], (BEAKER) (test code [address]: = 1841) Quality Control Associate/Techni won ID = [id number] for JESUS MANUEL SAENZ CBC W/PLT COUNT & AUTO [id number] 07:09:54 Test Item Value Reference Range Interpretation [...] (BEAKER) (test code = 2801) BASIC METABOLIC [id number] 06:39:44 Test Item Value Reference Range Interpretation [...] S NOT APPLICABLE FOR DIALYSIS PATIEN TS. Quality Control Associate ID - KT GCALCIUM, [id number] 06:23:23 Test Item Value Reference Range Interpretation Comments CALCIUM IONIZED (BEAKER) (test 1.14 mmol/L 1.12-1.27 code = 698) PH, BLOOD (BEAKER) (test code = 7.40 1810) [id number] 06:05:48 Test Item Value Reference Range Interpretation Comments PHOSPHORUS (BEAKER) (test code = 4.7 mg/dL 2.3-4.7 604) Quality Control Associate ID - KT [id number] 06:05:46 Test Item Value Reference Range Interpretation Comments MAGNESIUM (BEAKER) (test code = 2.1 mg/dL 1.6-2.6 627) Quality Control Associate ID - KT GPROTHROMBIN TIME/[id number] 05:51:22 Test Item Value Reference Range Interpretation Comments PROTIME (BEAKER) 21.2 seconds 11.9-14.2 H (test code = 759) INR (BEAKER) (test 1.86 See_Comment [Automat ed message] code = 370) The system [employer] generated this result transmitted ref erence range: <=5.90. The reference range was not used to int erpret this result as normal/abnormal . RECOMMENDED COUMADIN/WARFARIN INR THERAPY RANGESSTANDARD DOSE: 2.0 - 3.0 Includes: PROPHYLAXIS forvenous thrombosis, systemic embolization; TREATMENT for venous thrombosis and/or pulmonary embolus.HIGH RISK: Target INR is 2.5-3.5 for patients with mechanical heart valves.BASIC METABOLIC [id number] 04:44:34 Test Item Value Reference Range Interpretation [...] S NOT APPLICABLE FOR DIALYSIS PATIEN TS. Quality Control Associate ID - KT [id number] 04:43:05 Test Item Value Reference Range Interpretation Comments PHOSPHORUS (BEAKER) (test code = 6.2 mg/dL 2.3-4.7 H 604) Quality Control Associate ID - KT [id number] 04:43:03 Test Item Value Reference Range Interpretation Comments MAGNESIUM (BEAKER) (test code = 2.2 mg/dL 1.6-2.6 627) Quality Control Associate ID - KT GPROTHROMBIN TIME/[id number] 04:31:37 Test Item Value Reference Range Interpretation Comments PROTIME (BEAKER) 24.3 seconds 11.9-14.2 H (test code = 759) INR (BEAKER) (test 2.21 See_Comment [Automat ed message] code = 370) The system [employer] generated this result transmitted ref erence range: [...] PERCENT (BEAKER) (test code = 2801) CALCIUM, [id number] 04:16:25 Test Item Value Reference Range Interpretation Comments CALCIUM IONIZED (BEAKER) (test 1.14 mmol/L 1.12-1.27 code = 698) PH, BLOOD (BEAKER) (test code = 7.43 1810) BASIC METABOLIC [id number] 06:34:09 Test Item Value Reference Range Interpretation [...] S NOT APPLICABLE FOR DIALYSIS PATIEN TS. Quality Control Associate ID - KT GCBC W/PLT COUNT & AUTO [id number] 06:34:05 Test Item Value Reference Range Interpretation [...] 0-1 PERCENT (BEAKER) (test code = 2801) [id number] 06:25:36 Test Item Value Reference Range Interpretation Comments MAGNESIUM (BEAKER) (test code = 2.0 mg/dL 1.6-2.6 627) Quality Control Associate ID - KT [id number] 06:25:36 Test Item Value Reference Range Interpretation Comments PHOSPHORUS (BEAKER) (test code = 5.7 mg/dL 2.3-4.7 H 604) Quality Control Associate ID - KT GCALCIUM, [id number] 06:03:49 Test Item Value Reference Range Interpretation Comments CALCIUM IONIZED (BEAKER) (test 1.16 mmol/L 1.12-1.27 code = 698) PH, BLOOD (BEAKER) (test code = 7.37 1810) PROTHROMBIN TIME/[id number] 06:02:59 Test Item Value Reference Range Interpretation Comments PROTIME (BEAKER) 29.9 seconds 11.9-14.2 H (test code = 759) INR (BEAKER) (test 2.89 See_Comment [Automat ed message] code = 370) The system [employer] generated this result transmitted ref erence range: <=5.90. The reference range was not used to int erpret this result as normal/abnormal . RECOMMENDED COUMADIN/WARFARIN INR THERAPY RANGESSTANDARD DOSE: 2.0 - 3.0 Includes: PROPHYLAXIS forvenous thrombosis, systemic embolization; TREATMENT for venous thrombosis and/or pulmonary embolus.HIGH RISK: Target INR is 2.5-3.5 for patients with mechanical heart valves.HEPATITIS PANEL, [id number] 13:18:27 Test Item Value Reference Range Interpretation Comments HEPATITIS A IGM ANTIBODY (BEAKER) Nonreactive Nonreactive (test code = 498) HEPATITIS B CORE IGM ANTIBODY Nonreactive Nonreactive (BEAKER) (test code = 645) HEPATITIS C ANTIBODY (BEAKER) Nonreactive Nonreactive (test code = 367) HEPATITIS B SURFACE ANTIGEN (2) Nonreactive Nonreactive (BEAKER) (test code = 2585) Quality Control Associate ID - VALDEZ MBASIC METABOLIC [id number] 06:25:00 Test Item Value Reference Range Interpretation [...] S NOT APPLICABLE FOR DIALYSIS PATIEN TS. Quality Control Associate ID - VALDEZ [id number] 06:02:13 Test Item Value Reference Range Interpretation Comments PHOSPHORUS (BEAKER) 7.5 mg/dL 2.3-4.7 H Specimen slightly (test code = 604) hemolyzed Quality Control Associate ID - VALDEZ [id number] 06:02:12 Test Item Value Reference Range Interpretation Comments MAGNESIUM (BEAKER) 2.2 mg/dL 1.6-2.6 Specimen slightly (test code = 627) hemolyzed Quality Control Associate ID - VALDEZ MCALCIUM, [id number] 05:35:58 Test Item Value Reference Range Interpretation Comments CALCIUM IONIZED (BEAKER) (test 1.12 mmol/L 1.12-1.27 code = 698) PH, BLOOD (BEAKER) (test code = 7.35 1810) CBC W/PLT COUNT & AUTO [id number] 05:09:10 Test Item Value Reference Range Interpretation [...] PERCENT (BEAKER) (test code = 2801) PROTHROMBIN TIME/[id number] 05:08:20 Test Item Value Reference Range Interpretation Comments PROTIME (BEAKER) 32.7 seconds 11.9-14.2 H (test code = 759) INR (BEAKER) (test 3.22 See_Comment [Automat ed message] code = 370) The system [employer] generated this result transmitted ref erence range: <=5.90. The reference range was not used to int erpret this result as normal/abnormal . RECOMMENDED COUMADIN/WARFARIN INR THERAPY RANGESSTANDARD DOSE: 2.0 - 3.0 Includes: PROPHYLAXIS forvenous thrombosis, systemic embolization; TREATMENT for venous thrombosis and/or pulmonary embolus.HIGH RISK: Target INR is 2.5-3.5 for patients with mechanical heart valves.PROTHROMBIN TIME/[id number] 05:04:40 Test Item Value Reference Range Interpretation Comments PROTIME (BEAKER) 32.1 seconds 11.9-14.2 H (test code = 759) INR (BEAKER) (test 3.15 See_Comment [Automat ed message] code = 370) The system [employer] generated this result transmitted ref erence range: <=5.90. The reference range was not used to int erpret this result as normal/abnormal . RECOMMENDED COUMADIN/WARFARIN INR THERAPY RANGESSTANDARD DOSE: 2.0 - 3.0 Includes: PROPHYLAXIS forvenous thrombosis, systemic embolization; TREATMENT for venous thrombosis and/or pulmonary embolus.HIGH RISK: Target INR is 2.5-3.5 for patients with mechanical heart valves.SARS-COV2/RT-PCR ([facility]) 2021-02-21 20:29:02 Test Item Value Reference Range Interpretation Comments SARS-COV2/RT-PCR (test code = Negative Negative [id number]) Negative result for this test determines that [...] Healthcare Providers:https://www.molecular.mcdonald/jermaine/RT SARS-CoV-2 HCP Fact Sheet 51- 887167.pdfFact Sheet for Healthcare Patients:https://www.molecular.mcdonald/jermaine/RT SARS-CoV-2 Patient Fact Sheet EN 51-822200H2.pdfBASI METABOLIC [id number] 06:13:04 Test Item Value Reference Range Interpretation [...] S NOT APPLICABLE FOR DIALYSIS PATIEN TS. Quality Control Associate ID - [id number] 05:59:30 Test Item Value Reference Range Interpretation Comments PHOSPHORUS (BEAKER) (test code = 5.6 mg/dL 2.3-4.7 H 604) Quality Control Associate ID - [id number] 05:59:28 Test Item Value Reference Range Interpretation Comments MAGNESIUM (BEAKER) (test code = 2.0 mg/dL 1.6-2.6 627) Quality Control Associate ID - BSCBC W/PLT COUNT & AUTO [id number] 05:39:00 Test Item Value Reference Range Interpretation [...] PERCENT (BEAKER) (test code = 2801) PROTHROMBIN TIME/[id number] 05:38:20 Test Item Value Reference Range Interpretation Comments PROTIME (BEAKER) 37.7 seconds 11.9-14.2 H (test code = 759) INR (BEAKER) (test 3.86 See_Comment [Automat ed message] code = 370) The system [employer] generated this result transmitted ref erence range: <=5.90. The reference range was not used to int erpret this result as normal/abnormal . RECOMMENDED COUMADIN/WARFARIN INR THERAPY RANGESSTANDARD DOSE: 2.0 - 3.0 Includes: PROPHYLAXIS forvenous thrombosis, systemic embolization; TREATMENT for venous thrombosis and/or pulmonary embolus.HIGH RISK: Target INR is 2.5-3.5 for patients with mechanical heart valves.PROTHROMBIN TIME/[id number] 05:38:15 Test Item Value Reference Range Interpretation Comments PROTIME (BEAKER) 38.1 seconds 11.9-14.2 H (test code = 759) INR (BEAKER) (test 3.92 See_Comment [Automat ed message] code = 370) The system [employer] generated this result transmitted ref erence range: <=5.90. The reference range was not used to int erpret this result as normal/abnormal . RECOMMENDED COUMADIN/WARFARIN INR THERAPY RANGESSTANDARD DOSE: 2.0 - 3.0 Includes: PROPHYLAXIS forvenous thrombosis, systemic embolization; TREATMENT for venous thrombosis and/or pulmonary embolus.HIGH RISK: Target INR is 2.5-3.5 for patients with mechanical heart valves.CALCIUM, [id number] 05:28:08 Test Item Value Reference Range Interpretation Comments CALCIUM IONIZED (BEAKER) (test 1.12 mmol/L 1.12-1.27 code = 698) PH, BLOOD (BEAKER) (test code = 7.41 1810) PERIPHERAL BLOOD SMEAR - PATHOLOGIST [id number] 14:07:25 Test Item Value Reference Range Interpretation Comments PERIPHERAL SMR Normocytic normochromic REVIEW (BEAKER) anemia with mild (test code = 8663) anisopoikilocytosis and polychromasia. Rare schistocytes (0.6 per HPF). WBCs include predominantly mature granulocytes. Platelets are decreased, no clumping/satellitism seen. [id number] Anita Zamora, 112 (BEAKER) (test M.D code = 2849) RETICULOCYTE [id number] 11:37:09 Test Item Value Reference Range Interpretation Comments RETICULOCYTE COUNT PCT (BEAKER) (test 3.6 % 0.5-1.8 H code = 575) Quality Control Associate ID - [id number], [id number] 08:12:42 Test Item Value Reference Range Interpretation Comments CALCIUM IONIZED (BEAKER) (test 1.12 mmol/L 1.12-1.27 code = 698) PH, BLOOD (BEAKER) (test code = 7.41 1810) CBC W/PLT COUNT & AUTO [id number] 07:49:07 Test Item Value Reference Range Interpretation [...] (BEAKER) (test code = 2801) BASIC METABOLIC [id number] 07:19:01 Test Item Value Reference Range Interpretation [...] S NOT APPLICABLE FOR DIALYSIS PATIEN TS. Quality Control Associate ID - VALDEZ [id number] 07:18:50 Test Item Value Reference Range Interpretation Comments PHOSPHORUS (BEAKER) 5.4 mg/dL 2.3-4.7 H Specimen slightly (test code = 604) hemolyzed Quality Control Associate ID - VALDEZ [id number] 07:18:49 Test Item Value Reference Range Interpretation Comments MAGNESIUM (BEAKER) 2.0 mg/dL 1.6-2.6 Specimen slightly (test code = 627) hemolyzed Quality Control Associate ID - VALDEZ MPROTHROMBIN TIME/[id number] 06:39:12 Test Item Value Reference Range Interpretation Comments PROTIME (BEAKER) 33.7 seconds 11.9-14.2 H (test code = 759) INR (BEAKER) (test 3.35 See_Comment [Automat ed message] code = 370) The system [employer] generated this result transmitted ref erence range: <=5.90. The reference range was not used to int erpret this result as normal/abnormal . RECOMMENDED COUMADIN/WARFARIN INR THERAPY RANGESSTANDARD DOSE: 2.0 - 3.0 Includes: PROPHYLAXIS forvenous thrombosis, systemic embolization; TREATMENT for venous thrombosis and/or pulmonary embolus.HIGH RISK: Target INR is 2.5-3.5 for patients with mechanical heart valves.RAD, CHEST, 1 VIEW, NON [id number] 06:01:00Reason for exam:->intubatedShould this be performed at the bedside?->[facility] 1975 Sex: [...] 02/19/2021 06:01:44 , CHEST, 1 VIEW, NON [id number] 07:41:00Reason for exam:- >intubatedShould this be performed at the bedside?->Yes [facility] 1975 Sex: [...] 0-100 H (BEAKER) (test code = 700) Quality Control Associate ID - DBOperator ID - DBBASIC METABOLIC [id number] 06:26:54 Test Item Value Reference Range Interpretation [...] S NOT APPLICABLE FOR DIALYSIS PATIEN TS. Quality Control Associate ID - VALDEZ MPROTHROMBIN TIME/[id number] 06:17:35 Test Item Value Reference Range Interpretation Comments PROTIME (BEAKER) 29.3 seconds 11.9-14.2 H (test code = 759) INR (BEAKER) (test 2.80 See_Comment [Automat ed message] code = 370) The system [employer] generated this result transmitted ref erence range: [...] 0-1 PERCENT (BEAKER) (test code = 2801) [id number] 06:10:34 Test Item Value Reference Range Interpretation Comments PHOSPHORUS (BEAKER) (test code = 4.2 mg/dL 2.3-4.7 604) Quality Control Associate ID - VALDEZ [id number] 06:10:33 Test Item Value Reference Range Interpretation Comments MAGNESIUM (BEAKER) (test code = 1.9 mg/dL 1.6-2.6 627) Quality Control Associate ID - VALDEZ MBLOOD GAS, [id number] 05:54:10 Test Item Value Reference Range Interpretation [...] (BEAKER) (test code = 1819) 21.0 CALCIUM, [id number] 05:53:59 Test Item Value Reference Range Interpretation Comments CALCIUM IONIZED (BEAKER) (test 1.14 mmol/L 1.12-1.27 code = 698) PH, BLOOD (BEAKER) (test code = 7.40 1810) VITAMIN B12 AND [id number] 10:29:00 Test Item Value Reference Range Interpretation Comments VITAMIN B12 (BEAKER) 816 pg/mL 213-816 (test code = 774) FOLATE (BEAKER) 8.40 ng/mL See_Comment [Automated message] (test code = 362) The system which generated this result transmitted ref erence range: >=7.00. The reference range was not used to interpr et this result as normal/abnormal . Quality Control Associate ID - JESUS CBASIC METABOLIC [id number] 08:43:00 Test Item Value Reference Range Interpretation [...] S NOT APPLICABLE FOR DIALYSIS PATIEN TS. Quality Control Associate ID - SAROJAYA LRAD, CHEST, 1 VIEW, NON [id number] 08:32:00Reason for exam:->intubatedShould this be performed at the bedside?->Yes [facility] 1975 Sex: MFINAL REPORT Chest AP portable Comparison exam: 02/16/2021 History prov ided: Intubated Despite history provided, no ET tube is visualized. Heart size magnified by projection. Dialysis catheter in place. Widespread bilateral airspace disease unchanged. Signed: Riky BooneMDReport Verified Date/Time: 02/17/2021 08:32:52 Reading Location: [facility] Radiology Reading Room MAGNESIUM 2021-02-17 07:55:00 Test Item Value Reference Range Interpretation Comments MAGNESIUM (BEAKER) 2.0 mg/dL 1.6-2.6 Specimen slightly (test code = 627) hemolyzed Quality Control Associate ID - PIAYA [id number] 07:55:00 Test Item Value Reference Range Interpretation Comments PHOSPHORUS (BEAKER) 4.7 mg/dL 2.3-4.7 Specimen slightly (test code = 604) hemolyzed Quality Control Associate ID - PIAYA LPROTHROMBIN TIME/[id number] 06:54:00 Test Item Value Reference Range Interpretation Comments PROTIME (BEAKER) 29.4 seconds 11.9-14.2 H (test code = 759) INR (BEAKER) (test 2.82 See_Comment [Automat ed message] code = 370) The system [employer] generated this result transmitted ref erence range: <=5.90. The reference range was not used to int erpret this result as normal/abnormal . RECOMMENDED COUMADIN/WARFARIN INR THERAPY RANGESSTANDARD DOSE: 2.0 - 3.0 Includes: PROPHYLAXIS forvenous thrombosis, systemic embolization; TREATMENT for venous thrombosis and/or pulmonary embolus.HIGH RISK: Target INR is 2.5-3.5 for patients with mechanical heart valves.CALCIUM, [id number] 06:54:00 Test Item Value Reference Range Interpretation Comments CALCIUM IONIZED (BEAKER) (test 1.16 mmol/L 1.12-1.27 code = 698) PH, BLOOD (BEAKER) (test code = 7.39 1810) CBC W/PLT COUNT & AUTO [id number] 06:53:00 Test Item Value Reference Range Interpretation [...] PERCENT (BEAKER) (test code = 2801) POCT-GLUCOSE [id number] 21:32:00 Test Item Value Reference Range Interpretation Comments POC-GLUCOSE METER 103 mg/dL 70-110 : TESTED A T [facility] 6720 (BEAKER) (test code = [employer] [facility], 1538) [address]: Quality Control Associate/Techni won ID = [id number] for MARÍA AMAYA POCT-GLUCOSE [id number] 16:27:00 Test Item Value Reference Range Interpretation Comments POC-GLUCOSE METER 101 mg/dL 70-110 : TESTED A T [facility] 6720 (BEAKER) (test code = [employer] [facility], 1538) [address]: Quality Control Associate/Techni won ID = [id number] for Delmer Janelle Daly RAD, ANKLE, MIN 3 VIEWS, [id number] 13:26:00Reason for exam:->Ankle pain [facility] 1975 Sex: MFINAL REPORT CLINICAL HISTORY: Ankle pain TECHNIQUE: Three views of t he left ankle COMPARISON: None IMPRESSION: There is diffuse soft tissue swelling throughout the ankle with an ankle joint effusion. There is no evidence for fracture or dislocation. There is a dorsal calcaneal spur. Signed: Melodie Zarate MDReport Verified Date/Time: 02/16/2021 13:26:52 Reading Location: [facility] Radiology Reading Room POCT-GLUCOSE [id number] 12:24:00 Test Item Value Reference Range Interpretation Comments POC-GLUCOSE METER 97 mg/dL 70-110 : TESTED A T [facility] 6720 (BEAKER) (test code = NORM [place], 1538) [address]: Quality Control Associate/Techni won ID = [id number] for Janelle Powers BASIC METABOLIC [id number] 12:00:00 Test Item Value Reference Range Interpretation [...] S NOT APPLICABLE FOR DIALYSIS PATIEN TS. Quality Control Associate ID - GEMINI [id number] 11:52:00 Test Item Value Reference Range Interpretation Comments MAGNESIUM (BEAKER) (test code = 1.8 mg/dL 1.6-2.6 627) Quality Control Associate ID - GEMINI [id number] 11:52:00 Test Item Value Reference Range Interpretation Comments PHOSPHORUS (BEAKER) (test code = 4.0 mg/dL 2.3-4.7 604) Quality Control Associate ID - GEMINI BRUNO, CHEST, 1 VIEW, NON [id number] 10:51:00Reason for exam:->Pulmonary vascular congestion; ESRD on HDShould this be performed at the bedside?->Yes [facility] 1975 Sex: MFINAL [...] Zarate Verified Date/Time: 02/16/2021 10:51:39 Reading Location: [facility] Radiology Reading Room POCT-GLUCOSE [id number] 07:52:00 Test Item Value Reference Range Interpretation Comments POC-GLUCOSE METER 100 mg/dL 70-110 : TESTED A T [facility] 6720 (BEAKER) (test code = RAYMONJACQUELINE [employer] [facility], 1538) [address]: Quality Control Associate/Techni won ID = [id number] for Delmer Janelle Daly CALCIUM, [id number] 06:46:00 Test Item Value Reference Range Interpretation Comments CALCIUM IONIZED (BEAKER) (test 1.14 mmol/L 1.12-1.27 code = 698) PH, BLOOD (BEAKER) (test code = 7.43 1810) PROTHROMBIN [id number] 06:38:00 Test Item Value Reference Range Interpretation Comments PROTIME (BEAKER) 29.2 seconds 11.9-14.2 H (test code = 759) INR (BEAKER) (test 2.80 See_Comment [Automat ed message] code = 370) The system [employer] generated this result transmitted ref erence range: [...] PERCENT (BEAKER) (test code = 2801) PROTHROMBIN TIME/[id number] 23:36:00 Test Item Value Reference Range Interpretation Comments PROTIME (BEAKER) 28.8 seconds 11.9-14.2 H (test code = 759) INR (BEAKER) (test 2.74 See_Comment [Automat ed message] code = 370) The system [employer] generated this result transmitted ref erence range: <=5.90. The reference range was not used to int erpret this result as normal/abnormal . RECOMMENDED COUMADIN/WARFARIN INR THERAPY RANGESSTANDARD DOSE: 2.0 - 3.0 Includes: PROPHYLAXIS forvenous thrombosis, systemic embolization; TREATMENT for venous thrombosis and/or pulmonary embolus.HIGH RISK: Target INR is 2.5-3.5 for patients with mechanical heart valves.HEMOGLOBIN AND [id number] 23:26:00 Test Item Value Reference Range Interpretation Comments HEMOGLOBIN (BEAKER) (test code = 6.9 GM/DL 13.7-17.5 L 410) HEMATOCRIT (BEAKER) (test code = 21.4 % 40.1-51.0 L 411) Quality Control Associate ID - [id number]-GLUCOSE [id number] 12:19:00 Test Item Value Reference Range Interpretation Comments POC-GLUCOSE METER 123 mg/dL 70-110 H : TESTED A T [facility] 6720 (BEAKER) (test code [facility], = 1538) [address]: Quality Control Associate/Techni won ID = [id number] for Maikel robledo (contract), Syt damien RAD, CHEST, 1 VIEW, NON [id number] 07:27:00Reason for exam:->Pulmonary vascular congestion; ESRD on HDShould this be performed at the bedside?->Yes [facility] 1975 Sex: MFINAL REPORT CLINICAL HISTORY: Pulmonary vascular congestion; ESRD on HD TECHNIQUE: 1 view of the chest. COMPARISON: 02/14/2021 IMPRESSION: The right central line is unchanged. Diffuse bilateral airspace opacities appear slightly increased. Small pleural effusions cannot be excluded. Cardiomegaly is again seen poststernotomy with valvular repair. Signed: Melodie Zarate MDReport Verified Date/Time: 02/15/2021 07:27:43 Reading Location: [facility] Radiology Reading Room BASIC METABOLIC [id number] 06:32:00 Test Item Value Reference Range Interpretation [...] S NOT APPLICABLE FOR DIALYSIS PATIEN TS. Quality Control Associate ID - LINA [id number] 06:31:00 Test Item Value Reference Range Interpretation Comments MAGNESIUM (BEAKER) (test code = 1.7 mg/dL 1.6-2.6 627) Quality Control Associate ID - LINA [id number] 06:31:00 Test Item Value Reference Range Interpretation Comments PHOSPHORUS (BEAKER) (test code = 3.6 mg/dL 2.3-4.7 604) Quality Control Associate ID - LINA LCBC W/PLT COUNT & AUTO [id number] 06:22:00 Test Item Value Reference Range Interpretation [...] PERCENT (BEAKER) (test code = 2801) CALCIUM, [id number] 06:13:00 Test Item Value Reference Range Interpretation Comments CALCIUM IONIZED (BEAKER) (test 1.18 mmol/L 1.12-1.27 code = 698) PH, BLOOD (BEAKER) (test code = 7.41 1810) SARS-COV2/RT-PCR ([facility])2021-02-15 02:44:00 Test Item Value Reference Range Interpretation Comments SARS-COV2/RT-PCR (test code = Negative Negative 7321474) Negative result for this test determines that [...] the Mcdonald SARS-CoV-2 assay.Fact Sheet for Healthcare Providers:https://www.[employer].mcdonald/jermaine/RT SARS-CoV-2 HCP Fact Sheet 51- 422438.pdfFact Sheet for Healthcare Patients:https://www.[employer].mcdonald/jermaine/RT SARS-CoV-2 Patient Fact Sheet EN 51-466595M9.pdfBASIC METABOLIC [id number] 23:48:00 Test Item Value Reference Range Interpretation [...] S NOT APPLICABLE FOR DIALYSIS PATIEN TS. Quality Control Associate ID - LINA [id number] 23:39:00 Test Item Value Reference Range Interpretation Comments MAGNESIUM (BEAKER) 2.0 mg/dL 1.6-2.6 Specimen slightly (test code = 627) hemolyzed Quality Control Associate ID - LINA [id number] 23:39:00 Test Item Value Reference Range Interpretation Comments PHOSPHORUS (BEAKER) 6.0 mg/dL 2.3-4.7 H Specimen slightly (test code = 604) hemolyzed Quality Control Associate ID - LINA LPOCT-GLUCOSE [id number] 18:16:00 Test Item Value Reference Range Interpretation Comments POC-GLUCOSE METER 130 mg/dL 70-110 H : TESTED A T [facility] 6720 (BEAKER) (test code = NORM [employer] [facility], 1538) [address]: Quality Control Associate/Techni won ID = [id number] for Da vis, Paige RAD, CHEST, 1 VIEW, NON [id number] 08:33:00Reason for exam:->Pulmonary vascular congestion; ESRD on HDShould this be performed at the bedside?->Yes [facility] 1975 Sex: [...] Castro Verified Date/Time: 02/14/2021 08:33:43 Reading Location: [facility] Diagnostic Imaging Reading Room - [place] [address] HEPATITIS B SURFACE [id number] 07:31:00 Test Item Value Reference Range Interpretation Comments HEPATITIS B SURFACE ANTIGEN (2) Nonreactive Nonreactive (BEAKER) (test code = 2585) Specimen is considered negative for HBsAg.BASIC METABOLIC [id number] 06:29:00 Test Item Value Reference Range Interpretation [...] S NOT APPLICABLE FOR DIALYSIS PATIEN TS. Quality Control Associate ID - VALDEZ [id number] 06:12:00 Test Item Value Reference Range Interpretation Comments MAGNESIUM (BEAKER) (test code = 1.9 mg/dL 1.6-2.6 627) Quality Control Associate ID - VALDEZ [id number] 06:12:00 Test Item Value Reference Range Interpretation Comments PHOSPHORUS (BEAKER) (test code = 4.1 mg/dL 2.3-4.7 604) Quality Control Associate ID - VALDEZ MPROTHROMBIN TIME/[id number] 06:07:00 Test Item Value Reference Range Interpretation Comments PROTIME (BEAKER) 24.0 seconds 11.9-14.2 H (test code = 759) INR (BEAKER) (test 2.17 See_Comment [Automat ed message] code = 370) The system [employer] generated this result transmitted ref erence range: [...] (BEAKER) (test code = 2801) BLOOD GAS, [id number] 05:49:00 Test Item Value Reference Range Interpretation [...] (BEAKER) (test code = 1819) 40.0 CALCIUM, [id number] 05:48:00 Test Item Value Reference Range Interpretation Comments CALCIUM IONIZED (BEAKER) (test 1.12 mmol/L 1.12-1.27 code = 698) PH, BLOOD (BEAKER) (test code = 7.41 1810) BASIC METABOLIC [id number] 04:12:00 Test Item Value Reference Range Interpretation [...] S NOT APPLICABLE FOR DIALYSIS PATIEN TS. Quality Control Associate ID - VALDEZ MOperator SHELBI - LINA LPROTHROMBIN TIME/[id number] 03:42:00 Test Item Value Reference Range Interpretation Comments PROTIME (BEAKER) 25.4 seconds 11.9-14.2 H (test code = 759) INR (BEAKER) (test 2.34 See_Comment [Automat ed message] code = 370) The system [employer] generated this result transmitted ref erence range: <=5.90. The reference range was not used to int erpret this result as normal/abnormal . RECOMMENDED COUMADIN/WARFARIN INR THERAPY RANGESSTANDARD DOSE: 2.0 - 3.0 Includes: PROPHYLAXIS forvenous thrombosis, systemic embolization; TREATMENT for venous thrombosis and/or pulmonary embolus.HIGH RISK: Target INR is 2.5-3.5 for patients with mechanical heart valves.[id number] 03:40:00 Test Item Value Reference Range Interpretation Comments MAGNESIUM (BEAKER) (test code = 2.0 mg/dL 1.6-2.6 627) Quality Control Associate ID - LINA [id number] 03:19:00 Test Item Value Reference Range Interpretation Comments PHOSPHORUS (BEAKER) (test code = 7.9 mg/dL 2.3-4.7 H 604) Quality Control Associate ID - VALDEZ MCBC W/PLT COUNT & AUTO [id number] 03:06:00 Test Item Value Reference Range Interpretation [...] (BEAKER) (test code = 2801) BLOOD GAS, [id number] 03:01:00 Test Item Value Reference Range Interpretation [...] (BEAKER) (test code = 1819) 100.0 CALCIUM, [id number] 03:01:00 Test Item Value Reference Range Interpretation Comments CALCIUM IONIZED (BEAKER) (test 1.12 mmol/L 1.12-1.27 code = 698) PH, BLOOD (BEAKER) (test code = 7.35 1810) RAD, CHEST, 1 VIEW, NON [id number] 23:28:00Reason for exam:->assess volume statusShould this be performed at the bedside?->Yes [facility] 1975 Sex: MFINAL REPORT [...] 02/13/2021 23:28:46 RAD, CHEST, 1 VIEW, NON [id number] 23:20:00Reason for exam:->difficulty of breathingShould this be performed at the bedside?->[facility] : 1975 Sex: [...] Krishnan Verified Date/Time: 02/13/2021 23:20:13 POCT-BLOOD GASES, [id number] 23:09:00 Test Item Value Reference Range Interpretation [...] EXCESS, -1.0 meq/L -2.0-3.0 : TESTED AT [facility] 6720 ARTERIAL-POC [facility], (BEAKER) (test code [address]: = 1841) Quality Control Associate/Techni won ID = [id number] for SUBI A, ARGELIA [id number] 23:09:00 Test Item Value Reference Range Interpretation Comments POC-SODIUM (BEAKER) 135 meq/L 135-148 : TESTED AT [place] [address] (test code = 1542) [facility], [address]: Quality Control Associate/Techni won ID = [id number] for SUBI A, ARGELIA [id number] 23:09:00 Test Item Value Reference Range Interpretation Comments POC-POTASSIUM 5.7 meq/L 3.6-5.5 H : TESTED AT [place] [address] (BEAKER) (test code [facility], = 1540) [address]: Quality Control Associate/Techni won ID = [id number] for SUBI A, ARGELIA [id number] 23:09:00 Test Item Value Reference Range Interpretation Comments POC-HEMOGLOBIN 9.5 g/dL 13.0-16.8 L : TESTED AT [place] [address] (BEAKER) (test code = [facility], 1856) [address]: Quality Control Associate/Techni won ID = [id number] for SUBI A, ARGELIA [id number] 23:09:00 Test Item Value Reference Range Interpretation Comments POC-HEMATOCRIT 28 % 40-50 L : Quality Control Associate/Te chnician ID = (BEAKER) (test code = 008775 for ARGELIA ORTEGA 1857) [id number] 23:09:00 Test Item Value Reference Range Interpretation Comments POC-GLUCOSE (BEAKER) 97 mg/dL 70-110 : [facility] (test code = 1855) [facility], [address]: Quality Control Associate/Techni won ID = [id number] for SUBI A, ARGELIA POCT-GLUCOSE [id number] 22:30:00 Test Item Value Reference Range Interpretation Comments POC-GLUCOSE METER 102 mg/dL 70-110 : [facility] (BEAKER) (test code = [facility], 1538) [address]: Quality Control Associate/Techni won ID = [id number] for DE NNEJRAMIE, FRED POCT-GLUCOSE [id number] 17:26:00 Test Item Value Reference Range Interpretation Comments POC-GLUCOSE METER 85 mg/dL 70-110 : [facility] (test code [facility], = 1538) [address]: Quality Control Associate/Techni won ID = [id number] for DORIAN SHAHID BASIC METABOLIC [id number] 07:01:00 Test Item Value Reference Range Interpretation [...] S NOT APPLICABLE FOR DIALYSIS PATIEN TS. Quality Control Associate ID - KENNETH [id number] 06:57:00 Test Item Value Reference Range Interpretation Comments MAGNESIUM (BEAKER) (test code = 2.0 mg/dL 1.6-2.6 627) Quality Control Associate ID - KENNETH [id number] 06:57:00 Test Item Value Reference Range Interpretation Comments PHOSPHORUS (BEAKER) (test code = 6.2 mg/dL 2.3-4.7 H 604) Quality Control Associate ID Doretha COOPER WPROTHROMBIN TIME/[id number] 06:18:00 Test Item Value Reference Range Interpretation Comments PROTIME (BEAKER) 25.8 seconds 11.9-14.2 H (test code = 759) INR (BEAKER) (test 2.39 See_Comment [Automat ed message] code = 370) The system [employer] generated this result transmitted ref erence range: <=5.90. The reference range was not used to int erpret this result as normal/abnormal . RECOMMENDED COUMADIN/WARFARIN INR THERAPY RANGESSTANDARD DOSE: 2.0 - 3.0 Includes: PROPHYLAXIS forvenous thrombosis, systemic embolization; TREATMENT for venous thrombosis and/or pulmonary embolus.HIGH RISK: Target INR is 2.5-3.5 for patients with mechanical heart valves.CALCIUM, [id number] 06:05:00 Test Item Value Reference Range Interpretation Comments CALCIUM IONIZED (BEAKER) (test 1.17 mmol/L 1.12-1.27 code = 698) PH, BLOOD (BEAKER) (test code = 7.39 3080) CBC W/PLT COUNT & AUTO [id number] 05:52:00 Test Item Value Reference Range Interpretation [...] PERCENT (BEAKER) (test code = 2801) POCT-GLUCOSE [id number] 20:40:00 Test Item Value Reference Range Interpretation Comments POC-GLUCOSE METER 94 mg/dL 70-110 : Notified RN/MD: TESTED (BEAKER) (test code = AT [facility] 6720 [facility] 1538) [facility], [address]: Quality Control Associate/Techni won ID = [id number] for MICHELLE DAMIAN POCT-GLUCOSE [id number] 18:06:00 Test Item Value Reference Range Interpretation Comments POC-GLUCOSE METER 114 mg/dL 70-110 H : TESTED A T [facility] 6720 (BEAKER) (test code = [facility], 1538) [address]: Quality Control Associate/Techni won ID = [id number] for Kendy Sparrow HEMOGLOBIN AND [id number] 13:01:00 Test Item Value Reference Range Interpretation Comments HEMOGLOBIN (BEAKER) (test code = 8.7 GM/DL 13.7-17.5 L 410) HEMATOCRIT (BEAKER) (test code = 27.0 % 40.1-51.0 L 411) Quality Control Associate ID - [id number]-GLUCOSE [id number] 11:48:00 Test Item Value Reference Range Interpretation Comments POC-GLUCOSE METER 96 mg/dL 70-110 : TESTED A T [facility] 6720 (BEAKER) (test code = [facility], 1538) 10556: Quality Control Associate/Techni won ID = [id number] for Bent on, Gladys [id number] 10:57:00 Test Item Value Reference Range Interpretation Comments HAPTOGLOBIN (BEAKER) (test code = < mg/dL 14-258 L 366) Quality Control Associate ID - AAHAMIDPLASMA FREE [id number] 10:29:00 Test Item Value Reference Range Interpretation Comments HEMOGLOBIN PLASMA (BEAKER) (test 20.0 mg/dl 0.0-30.0 code = 1054) HEPATIC FUNCTION [id number] 10:21:00 Test Item Value Reference Range Interpretation [...] (test code = 42 U/L 6-55 347) Quality Control Associate ID - KENNETH MADERAAD, CHEST, 1 VIEW, NON [id number] 07:07:00Reason for exam:->intubatedShould this be performed at the bedside?->Yes [facility] 1975 Sex: MFINAL REPORT [...] 444 U/L 125-220 H code = 635) Quality Control Associate ID - KENNETH WBASIC METABOLIC [id number] 05:03:00 Test Item Value Reference Range Interpretation [...] S NOT APPLICABLE FOR DIALYSIS PATIEN TS. Quality Control Associate ID - KENNETH [id number] 04:57:00 Test Item Value Reference Range Interpretation Comments MAGNESIUM (BEAKER) (test code = 2.1 mg/dL 1.6-2.6 627) Quality Control Associate ID - KENNETH [id number] 04:57:00 Test Item Value Reference Range Interpretation Comments PHOSPHORUS (BEAKER) (test code = 7.1 mg/dL 2.3-4.7 H 604) Quality Control Associate ID - KENNETH WCALCIUM, [id number] 04:35:00 Test Item Value Reference Range Interpretation Comments CALCIUM IONIZED (BEAKER) (test 1.09 mmol/L 1.12-1.27 L code = 698) PH, BLOOD (BEAKER) (test code = 7.37 1810) PROTHROMBIN [id number] 04:31:00 Test Item Value Reference Range Interpretation Comments PROTIME (BEAKER) 22.9 seconds 11.9-14.2 H (test code = 759) INR (BEAKER) (test 2.05 See_Comment [Automat ed message] code = 370) The system [employer] generated this result transmitted ref erence range: [...] PERCENT (BEAKER) (test code = 2801) POCT-GLUCOSE [id number] 21:06:00 Test Item Value Reference Range Interpretation Comments POC-GLUCOSE METER 108 mg/dL 70-110 : TESTED A T [facility] 6720 (BEAKER) (test code [facility], = 1538) 48709: Quality Control Associate/Techni won ID = [id number] for Moni szymanski (contract)Rola faustino LACTATE DEHYDROGENASE (LDH)2021-02-11 10:34:00 Test Item Value Reference Range Interpretation Comments LACTATE DEHYDROGENASE (BEAKER) (test 559 U/L 125-220 H code = 635) Quality Control Associate ID - AAHAMIDPOCT-GLUCOSE [id number] 07:41:00 Test Item Value Reference Range Interpretation Comments POC-GLUCOSE METER 86 mg/dL 70-110 : TESTED A T [facility] 6720 (BEAKER) (test [facility] = [facility] [place] [facility], 1538) 55603: Quality Control Associate/Techni won ID = [id number] for COSME NORMAN BASIC METABOLIC [id number] 06:26:00 Test Item Value Reference Range Interpretation [...] S NOT APPLICABLE FOR DIALYSIS PATIEN TS. Quality Control Associate ID - [id number] 06:07:00 Test Item Value Reference Range Interpretation Comments MAGNESIUM (BEAKER) (test code = 2.0 mg/dL 1.6-2.6 627) Quality Control Associate ID - [id number] 06:07:00 Test Item Value Reference Range Interpretation Comments PHOSPHORUS (BEAKER) (test code = 6.1 mg/dL 2.3-4.7 H 604) Quality Control Associate ID - DBRAD, CHEST, 1 VIEW, NON [id number] 05:49:00Reason for exam:- >intubatedShould this be performed at the bedside?->Yes [facility] 1975 Sex: [...] 02/11/2021 05:49:15 CBC W/PLT COUNT & AUTO [id number] 05:29:00 Test Item Value Reference Range Interpretation [...] PERCENT (BEAKER) (test code = 2801) POCT-GLUCOSE [id number] 21:00:00 Test Item Value Reference Range Interpretation Comments POC-GLUCOSE METER 137 mg/dL 70-110 H : TESTED A T [facility] 6720 (BEAKER) (test code = NORM [place] [facility], 1538) 10601: Quality Control Associate/Techni won ID = [id number] for Manuelito Chavez BASIC METABOLIC [id number] 17:01:00 Test Item Value Reference Range Interpretation [...] S NOT APPLICABLE FOR DIALYSIS PATIEN TS. Quality Control Associate ID - [id number] 17:00:00 Test Item Value Reference Range Interpretation Comments POTASSIUM (BEAKER) (test code = 4.2 meq/L 3.5-5.1 379) [id number] 17:00:00 Test Item Value Reference Range Interpretation Comments MAGNESIUM (BEAKER) (test code = 2.0 mg/dL 1.6-2.6 627) Quality Control Associate ID - DBLACTATE DEHYDROGENASE (LDH)2021-02-10 17:00:00 Test Item Value Reference Range Interpretation Comments LACTATE DEHYDROGENASE (BEAKER) (test 506 U/L 125-220 H code = 635) Quality Control Associate ID - DBCBC W/PLT COUNT & AUTO [id number] 16:38:00 Test Item Value Reference Range Interpretation [...] PERCENT (BEAKER) (test code = 2801) POCT-GLUCOSE [id number] 14:15:00 Test Item Value Reference Range Interpretation Comments POC-GLUCOSE METER 135 mg/dL 70-110 H : TESTED A T [facility] 6720 (BEAKER) (test code = [facility] [place], 1538) 73557: Quality Control Associate/Techni won ID = [id number] for Paige Russell [id number] 11:35:00 Test Item Value Reference Range Interpretation Comments PREALBUMIN (BEAKER) (test code = 20 mg/dL 14-45 586) Quality Control Associate ID - DBC-REACTIVE [id number] 10:53:00 Test Item Value Reference Range Interpretation Comments C-REACTIVE PROTEIN (BEAKER) (test 2.09 mg/dL 0.00-0.50 H code = 676) Quality Control Associate ID - DBRAD, CHEST, 1 VIEW, NON [id number] 07:13:00Reason for exam:- >intubatedShould this be performed at the bedside?->Yes [facility] : 1975 Sex: MFINAL REPORT RAD, CHEST, 1 VIEW, NON DEPT INDICATION: intubated TEFSAYE RISON: Prior day's exam FINDINGS: Portable frontal view of the chest. IMPRESSION: Support Lines: Stable. Lungs and pleura: Unchanged interstitial, airspace, and pleural opacities. No pneumothorax.Heart and mediastinum: Stable contours. Stable surgical changes.Additional findings: None. Signed: Monico lindsay JR, Taye Taylor Verified Date/Time: 02/10/2021 07:13:47 Reading Location: [facility] Radiology Reading Room CALCIUM, [id number] 03:42:00 Test Item Value Reference Range Interpretation Comments CALCIUM IONIZED (BEAKER) (test 1.24 mmol/L 1.12-1.27 code = 698) PH, BLOOD (BEAKER) (test code = 7.40 1810) BASIC METABOLIC [id number] 03:33:00 Test Item Value Reference Range Interpretation [...] S NOT APPLICABLE FOR DIALYSIS PATIEN TS. Quality Control Associate ID - KENNETH [id number] 03:32:00 Test Item Value Reference Range Interpretation Comments MAGNESIUM (BEAKER) (test code = 2.3 mg/dL 1.6-2.6 627) Quality Control Associate ID - KENNETH [id number] 03:32:00 Test Item Value Reference Range Interpretation Comments PHOSPHORUS (BEAKER) (test code = 7.1 mg/dL 2.3-4.7 H 604) Quality Control Associate SHELBI COOPER WPROTHROMBIN [id number] 03:31:00 Test Item Value Reference Range Interpretation Comments PROTIME (BEAKER) 18.9 seconds 11.9-14.2 H (test code = 759) INR (BEAKER) (test 1.61 See_Comment [Automat ed message] code = 370) The system [employer] generated this result transmitted ref erence range: [...] PERCENT (BEAKER) (test code = 2801) POCT-GLUCOSE [id number] 22:04:00 Test Item Value Reference Range Interpretation Comments POC-GLUCOSE METER 125 mg/dL 70-110 H : TESTED A T [facility] 6720 (BEAKER) (test code = [facility], 153) 37467: Quality Control Associate/Techni won ID = [id number] for September POCT-GLUCOSE [id number] 16:29:00 Test Item Value Reference Range Interpretation Comments POC-GLUCOSE METER 112 mg/dL 70-110 H : TESTED A T [facility] 6720 (BEAKER) (test code = [facility], 153) 52314: Quality Control Associate/Techni won ID = [id number] for DELMER SHANTHIMARSHALLTHOMAS POCT-GLUCOSE [id number] 11:26:00 Test Item Value Reference Range Interpretation Comments POC-GLUCOSE METER 97 mg/dL 70-110 : TESTED A T [facility] 6720 (BEAKER) (test code = [facility], 1538) 09306: Quality Control Associate/Techni won ID = [id number] for DIPESH Rubi, THOMAS POCT-GLUCOSE [id number] 07:49:00 Test Item Value Reference Range Interpretation Comments POC-GLUCOSE METER 82 mg/dL 70-110 : TESTED A T [facility] 6720 (BEAKER) (test code = [facility] [place] [place], 1538) 28511: Quality Control Associate/Techni won ID = [id number] for THOMAS STEVENS BASIC METABOLIC [id number] 05:07:00 Test Item Value Reference Range Interpretation [...] S NOT APPLICABLE FOR DIALYSIS PATIEN TS. Quality Control Associate ID - VALDEZ [id number] 05:01:00 Test Item Value Reference Range Interpretation Comments MAGNESIUM (BEAKER) (test code = 2.2 mg/dL 1.6-2.6 627) Quality Control Associate ID - VALDEZ [id number] 05:01:00 Test Item Value Reference Range Interpretation Comments PHOSPHORUS (BEAKER) (test code = 5.4 mg/dL 2.3-4.7 H 604) Quality Control Associate ID - VALDEZ MCALCIUM, [id number] 04:47:00 Test Item Value Reference Range Interpretation Comments CALCIUM IONIZED (BEAKER) (test 1.22 mmol/L 1.12-1.27 code = 698) PH, BLOOD (BEAKER) (test code = 7.42 1810) PROTHROMBIN [id number] 04:38:00 Test Item Value Reference Range Interpretation Comments PROTIME (BEAKER) 18.8 seconds 11.9-14.2 H (test code = 759) INR (BEAKER) (test 1.60 See_Comment [Automat ed message] code = 370) The system [employer] generated this result transmitted ref erence range: [...] = 2801) RAD, CHEST, 1 VIEW, NON [id number] 04:04:00Reason for exam:- >intubatedShould this be performed at the bedside?->Yes [facility] : 1975 Sex: MFINAL REPORT RAD, CHEST, 1 VIEW, NON DEPT INDICATION: intubated TESFAYE RISON: Prior day's exam FINDINGS: Portable frontal view of the chest. IMPRESSION: Support Lines: Stable. Lungs and pleura: Unchanged bilateral airspace and pleural opacities. No pneumothorax.Heart and mediastinum: Stable contours and postsurgical changes.Additional findings: None. Signed: Pedro Krishnan [facility] INSTITUTEeport Verified Date/Time: 02/09/2021 04:04:14 POCT-GLUCOSE [id number] 22:18:00 Test Item Value Reference Range Interpretation Comments POC-GLUCOSE METER 98 mg/dL 70-110 : TESTED A T [facility] 6720 (BEAKER) (test code = NORM [place] [facility], 1538) 71674: Quality Control Associate/Techni won ID = [id number] for MESERET DELVALLESeptember [id number] 19:37:00 Test Item Value Reference Range Interpretation Comments MAGNESIUM (BEAKER) 1.9 mg/dL 1.6-2.6 Specimen slightly (test code = 627) hemolyzed Quality Control Associate ID - BSHEMOGLOBIN AND [id number] 19:16:00 Test Item Value Reference Range Interpretation Comments HEMOGLOBIN (BEAKER) (test code = 8.3 GM/DL 13.7-17.5 L 410) HEMATOCRIT (BEAKER) (test code = 24.9 % 40.1-51.0 L 411) Quality Control Associate ID - 6000POCT-GLUCOSE [id number] 17:27:00 Test Item Value Reference Range Interpretation Comments POC-GLUCOSE METER 82 mg/dL 70-110 : TESTED A T [facility] 6720 (BEAKER) (test code = [facility], 1538) 06363: Quality Control Associate/Techni won ID = [id number] for RONAL BROCK [id number] 15:52:00 Test Item Value Reference Range Interpretation Comments FERRITIN (BEAKER) (test code = 2985.27 ng/mL 5.00-275.00 H 361) Quality Control Associate ID - BSOperator ID - BSIRON, TIBC, % SAT. (WITHOUT FERRITIN)2021-02-08 14:59:00 Test Item Value Reference Range Interpretation Comments IRON (BEAKER) (test code = 547) 68.0 ug/dL 40.0-160.0 TOTAL IRON BINDING CAPACITY 136 ug/dL 250-450 L (BEAKER) (test code = 769) IRON % SATURATION (2) (BEAKER) 50 % 20-55 (test code = 2590) Quality Control Associate ID - BSPROTHROMBIN TIME/[id number] 14:45:00 Test Item Value Reference Range Interpretation Comments PROTIME (BEAKER) 19.5 seconds 11.9-14.2 H (test code = 759) INR (BEAKER) (test 1.67 See_Comment [Automat ed message] code = 370) The system [employer] generated this result transmitted ref erence range: <=5.90. The reference range was not used to int erpret this result as normal/abnormal . RECOMMENDED COUMADIN/WARFARIN INR THERAPY RANGESSTANDARD DOSE: 2.0 - 3.0 Includes: PROPHYLAXIS forvenous thrombosis, systemic embolization; TREATMENT for venous thrombosis and/or pulmonary embolus.HIGH RISK: Target INR is 2.5-3.5 for patients with mechanical heart valves.POCT-GLUCOSE [id number] 11:26:00 Test Item Value Reference Range Interpretation Comments POC-GLUCOSE METER 112 mg/dL 70-110 H : TESTED A T [facility] 6720 (BEAKER) (test code = [place] [facility], 1538) 72188: Quality Control Associate/Techni won ID = [id number] for BETH PEREZAN POCT-GLUCOSE [id number] 07:47:00 Test Item Value Reference Range Interpretation Comments POC-GLUCOSE METER 75 mg/dL 70-110 : TESTED A T [facility] 6720 (BEAKER) (test code = [facility]ide[employer]ACQUELINE [place] [facility], 1538) 89589: Quality Control Associate/Techni won ID = [id number] for RONAL BROCK RAD, CHEST, 1 VIEW, NON [id number] 07:43:00Reason for exam:- >intubatedShould this be performed at the bedside?->Yes [facility] : 1975 Sex: MFINAL REPORT RAD, CHEST, 1 VIEW, NON DEPT INDICATION: intubated TESFAYE RISON: Prior day's exam FINDINGS: Portable frontal view of the chest. IMPRESSION: Support Lines: Stable. Lungs and pleura: Worsening interstitial edema and effusions. No pneumothorax.Heart and mediastinum: Stable contours. Stable surgical changes.Additional findings: None. Signed: JR Tate Robert MDReport Verified Date/Time: 02/08/2021 07:43:26 Reading Location: [facility] Radiology Reading Room BASIC METABOLIC [id number] 04:08:00 Test Item Value Reference Range Interpretation [...] S NOT APPLICABLE FOR DIALYSIS PATIEN TS. Quality Control Associate ID - PIRAFY [id number] 04:07:00 Test Item Value Reference Range Interpretation Comments MAGNESIUM (BEAKER) (test code = 1.7 mg/dL 1.6-2.6 627) Quality Control Associate ID - LINA [id number] 04:07:00 Test Item Value Reference Range Interpretation Comments PHOSPHORUS (BEAKER) (test code = 6.1 mg/dL 2.3-4.7 H 604) Quality Control Associate ID - PIRAFY LCALCIUM, [id number] 04:02:00 Test Item Value Reference Range Interpretation Comments CALCIUM IONIZED (BEAKER) (test 1.19 mmol/L 1.12-1.27 code = 698) PH, BLOOD (BEAKER) (test code = 7.40 1810) CBC W/PLT COUNT & AUTO [id number] 03:56:00 Test Item Value Reference Range Interpretation [...] PERCENT (BEAKER) (test code = 2801) PROTHROMBIN TIME/[id number] 03:52:00 Test Item Value Reference Range Interpretation Comments PROTIME (BEAKER) 19.3 seconds 11.9-14.2 H (test code = 759) INR (BEAKER) (test 1.65 See_Comment [Automat ed message] code = 370) The system [employer] generated this result transmitted ref erence range: <=5.90. The reference range was not used to int erpret this result as normal/abnormal . RECOMMENDED COUMADIN/WARFARIN INR THERAPY RANGESSTANDARD DOSE: 2.0 - 3.0 Includes: PROPHYLAXIS forvenous thrombosis, systemic embolization; TREATMENT for venous thrombosis and/or pulmonary embolus.HIGH RISK: Target INR is 2.5-3.5 for patients with mechanical heart valves.POCT-GLUCOSE [id number] 22:32:00 Test Item Value Reference Range Interpretation Comments POC-GLUCOSE METER 93 mg/dL 70-110 : TESTED A T [facility] 6720 (BEAKER) (test code = [employer] [facility], 1538) 39176: Quality Control Associate/Techni won ID = [id number] for MESERET DELVALLESeptember POCT-GLUCOSE [id number] 17:21:00 Test Item Value Reference Range Interpretation Comments POC-GLUCOSE METER 81 mg/dL 70-110 : TESTED A T [facility] 6720 (BEAKER) (test code = [employer] [facility], 1538) 83096: Quality Control Associate/Techni won ID = [id number] for RONAL BROCK HEMOGLOBIN AND [id number] 13:35:00 Test Item Value Reference Range Interpretation Comments HEMOGLOBIN (BEAKER) (test code = 7.1 GM/DL 13.7-17.5 L 410) HEMATOCRIT (BEAKER) (test code = 21.6 % 40.1-51.0 L 411) Quality Control Associate ID - [id number]-GLUCOSE [id number] 12:35:00 Test Item Value Reference Range Interpretation Comments POC-GLUCOSE METER 90 mg/dL 70-110 : TESTED Elias Dominguez [facility] 6720 (TAMARA) (test code = [facility] [place], 1538) 40320: Quality Control Associate/Techni won ID = [id number] for RONAL BROCK CT, BRAIN, WITHOUT [id number] 11:47:00Reason for exam:->lt hemiparesis What is the patient's sedation requirement?->No Sedation [facility] 1975 Sex: MAddendum BeginsREPORT STATUS:A Addendum: Questionable subcentimeter region of infarction within the right inferior frontal lobe (axial image 19), not seen on prior exam.Findings discussed with ordering provider by Dr. Cantu at time of this addendum. Signed: Re Cantu MDReport Verified Date/Time: 02/07/2021 11:47:29 Reading Location: [facility] C013V Neuro Reading RoomAddendum EndsFINAL [...] Cantu MDReport Verified Date/Time:02/07/2021 10:56:22 Reading Location: [address] Neuro Reading Room POCT-GLUCOSE METER 2021-02-07 07:42:00 Test Item Value Reference Range Interpretation Comments POC-GLUCOSE METER 104 mg/dL 70-110 : TESTED A T [facility] 6720 (BEAKER) (test code = [place] [facility], 1538) 60303: Quality Control Associate/Techni won ID = [id number] for LACY Karis RONAL RAD, CHEST, 1 VIEW, NON [id number] 07:24:00Reason for exam:- >intubatedShould this be performed at the bedside?->Yes [facility] 1975 Sex: MFINAL REPORT RAD, CHEST, 1 VIEW, NON DEPT INDICATION: intubated TESFAYE RISON: Prior day's exam FINDINGS: Portable frontal view of the chest. IMPRESSION: Support Lines: Stable. Lungs and pleura: Improved but persistent interstitial edema. No pneumothorax.Heart and mediastinum: Stable contours. Stable surgical changes.Additional findings: None. Signed: JR Bebeto, Taye Taylor Verified Date/Time: 02/07/2021 07:24:30 Reading Location: [facility] Radiology Reading Room CALCIUM, [id number] 05:07:00 Test Item Value Reference Range Interpretation Comments CALCIUM IONIZED (BEAKER) (test 1.17 mmol/L 1.12-1.27 code = 698) PH, BLOOD (BEAKER) (test code = 7.45 1810) BASIC METABOLIC [id number] 03:45:00 Test Item Value Reference Range Interpretation [...] S NOT APPLICABLE FOR DIALYSIS PATIEN TS. Quality Control Associate ID - VALDEZ [id number] 03:40:00 Test Item Value Reference Range Interpretation Comments MAGNESIUM (BEAKER) (test code = 1.7 mg/dL 1.6-2.6 627) Quality Control Associate ID - VALDEZ [id number] 03:40:00 Test Item Value Reference Range Interpretation Comments PHOSPHORUS (BEAKER) (test code = 4.9 mg/dL 2.3-4.7 H 604) Quality Control Associate ID - VALDEZ MPROTHROMBIN TIME/[id number] 03:29:00 Test Item Value Reference Range Interpretation Comments PROTIME (BEAKER) 18.4 seconds 11.9-14.2 H (test code = 759) INR (BEAKER) (test 1.55 See_Comment [Automat ed message] code = 370) The system [employer] generated this result transmitted ref erence range: [...] (test code = 2801) FUNGUS CULTURE + [id number] 22:52:00 Test Item Value Reference Range Interpretation Comments CULTURE (BEAKER) (test No fungus isolated in code = 1095) 28 days FUNGUS SMEAR (BEAKER) No fungi seen (test code = 1406) POCT-GLUCOSE [id number] 16:41:00 Test Item Value Reference Range Interpretation Comments POC-GLUCOSE METER 97 mg/dL 70-110 : TESTED A T [facility] 6720 (BEAKER) (test code = [facility] [place], 1538) 13840: Quality Control Associate/Techni won ID = [id number] for IVONE ZHAO POCT-GLUCOSE [id number] 11:40:00 Test Item Value Reference Range Interpretation Comments POC-GLUCOSE METER 102 mg/dL 70-110 : TESTED A T [facility] 6720 (BEAKER) (test code = N[place] [facility], 1538) 44011: Quality Control Associate/Techni won ID = [id number] for IVONE RIBEIRO HEPATIC FUNCTION [id number] 08:31:00 Test Item Value Reference Range Interpretation [...] (test code = 37 U/L 6-55 347) Quality Control Associate ID - VALDEZ CAROLD, CHEST, 1 VIEW, NON [id number] 07:58:00Reason for exam:->intubatedShould this be performed at the bedside?->Yes [facility] 1975 Sex: [...] MDReport Verified Date/Time: 02/06/2021 07:58:22 Reading Location: [facility] Radiology Reading Room POCT-GLUCOSE [id number] 06:40:00 Test Item Value Reference Range Interpretation Comments POC-GLUCOSE METER 102 mg/dL 70-110 : TESTED A T [facility] 6720 (BEAKER) (test code = [place], 1538) 78194: Quality Control Associate/Techni won ID = [id number] for Cynthia Laird BASIC METABOLIC [id number] 04:44:00 Test Item Value Reference Range Interpretation [...] S NOT APPLICABLE FOR DIALYSIS PATIEN TS. Quality Control Associate ID - [id number] 04:20:00 Test Item Value Reference Range Interpretation Comments MAGNESIUM (BEAKER) (test code = 1.8 mg/dL 1.6-2.6 627) Quality Control Associate ID - [id number] 04:20:00 Test Item Value Reference Range Interpretation Comments PHOSPHORUS (BEAKER) (test code = 6.3 mg/dL 2.3-4.7 H 604) Quality Control Associate ID - DBPROTHROMBIN TIME/[id number] 04:19:00 Test Item Value Reference Range Interpretation Comments PROTIME (BEAKER) 22.0 seconds 11.9-14.2 H (test code = 759) INR (BEAKER) (test 1.95 See_Comment [Automat ed message] code = 370) The system [employer] generated this result transmitted ref erence range: <=5.90. The reference range was not used to int erpret this result as normal/abnormal . RECOMMENDED COUMADIN/WARFARIN INR THERAPY RANGESSTANDARD DOSE: 2.0 - 3.0 Includes: PROPHYLAXIS forvenous thrombosis, systemic embolization; TREATMENT for venous thrombosis and/or pulmonary embolus.HIGH RISK: Target INR is 2.5-3.5 for patients with mechanical heart valves.CALCIUM, [id number] 03:29:00 Test Item Value Reference Range Interpretation Comments CALCIUM IONIZED (BEAKER) (test 1.18 mmol/L 1.12-1.27 code = 698) PH, BLOOD (BEAKER) (test code = 7.43 1810) CBC W/PLT COUNT & AUTO [id number] 03:28:00 Test Item Value Reference Range Interpretation [...] PERCENT (BEAKER) (test code = 2801) POCT-GLUCOSE [id number] 21:26:00 Test Item Value Reference Range Interpretation Comments POC-GLUCOSE METER 115 mg/dL 70-110 H : TESTED A T [facility] 6720 (BEAKER) (test code = [facility], 1538) 55552: Quality Control Associate/Techni won ID = [id number] for Go Cynthia slaughter [id number] 18:57:00 Test Item Value Reference Range Interpretation Comments MAGNESIUM (BEAKER) (test code = 1.8 mg/dL 1.6-2.6 627) Quality Control Associate ID - LINA LPOCT-GLUCOSE [id number] 18:44:00 Test Item Value Reference Range Interpretation Comments POC-GLUCOSE METER 102 mg/dL 70-110 : TESTED A T [facility] 6720 (BEAKER) (test code = [facility], 153) 49587: Quality Control Associate/Techni won ID = [id number] for Am inu, Aleksandarfayat POCT-GLUCOSE [id number] 12:50:00 Test Item Value Reference Range Interpretation Comments POC-GLUCOSE METER 84 mg/dL 70-110 : TESTED A T [facility] 6720 (TAMARA) (test code = [place] [facility], 1538) 74452: Quality Control Associate/Techni won ID = [id number] for RONAL BROCK POCT-GLUCOSE [id number] 07:48:00 Test Item Value Reference Range Interpretation Comments POC-GLUCOSE METER 88 mg/dL 70-110 : TESTED A T [facility] 6720 (TAMARA) (test code = NORM [place], 1538) [address]: Quality Control Associate/Techni won ID = [id number] for RONAL BROCK RAD, CHEST, 1 VIEW, NON [id number] 06:09:00Reason for exam:- >intubatedShould this be performed at the bedside?->Yes [facility] : 1975 Sex: [...] Cantu Verified Date/Time: 02/05/2021 06:09:25 BASIC METABOLIC [id number] 04:35:00 Test Item Value Reference Range Interpretation [...] S NOT APPLICABLE FOR DIALYSIS PATIEN TS. Quality Control Associate ID - LINA [id number] 04:16:00 Test Item Value Reference Range Interpretation Comments MAGNESIUM (BEAKER) (test code = 1.6 mg/dL 1.6-2.6 627) Quality Control Associate ID - LINA [id number] 04:16:00 Test Item Value Reference Range Interpretation Comments PHOSPHORUS (BEAKER) (test code = 5.1 mg/dL 2.3-4.7 H 604) Quality Control Associate ID - LINA LCBC W/PLT COUNT & AUTO [id number] 04:13:00 Test Item Value Reference Range Interpretation [...] PERCENT (BEAKER) (test code = 2801) PROTHROMBIN TIME/[id number] 03:39:00 Test Item Value Reference Range Interpretation Comments PROTIME (BEAKER) 27.9 seconds 11.9-14.2 H (test code = 759) INR (BEAKER) (test 2.64 See_Comment [Automat ed message] code = 370) The system [employer] generated this result transmitted ref erence range: <=5.90. The reference range was not used to int erpret this result as normal/abnormal . RECOMMENDED COUMADIN/WARFARIN INR THERAPY RANGESSTANDARD DOSE: 2.0 - 3.0 Includes: PROPHYLAXIS forvenous thrombosis, systemic embolization; TREATMENT for venous thrombosis and/or pulmonary embolus.HIGH RISK: Target INR is 2.5-3.5 for patients with mechanical heart valves.CALCIUM, [id number] 03:35:00 Test Item Value Reference Range Interpretation Comments CALCIUM IONIZED (BEAKER) (test 1.11 mmol/L 1.12-1.27 L code = 698) PH, BLOOD (BEAKER) (test code = 7.48 1810) POCT-GLUCOSE [id number] 21:54:00 Test Item Value Reference Range Interpretation Comments POC-GLUCOSE METER 105 mg/dL 70-110 : TESTED A T [facility] 6720 ([employer]) (test code = NORM [place] [facility], 1538) [address]: Quality Control Associate/Techni won ID = [id number] for September PROTHROMBIN TIME/[id number] 20:05:00 Test Item Value Reference Range Interpretation Comments PROTIME (BEAKER) 30.9 seconds 11.9-14.2 H (test code = 759) INR (BEAKER) (test 3.01 See_Comment [Automat ed message] code = 370) The system [employer] generated this result transmitted ref erence range: <=5.90. The reference range was not used to int erpret this result as normal/abnormal . RECOMMENDED COUMADIN/WARFARIN INR THERAPY RANGESSTANDARD DOSE: 2.0 - 3.0 Includes: PROPHYLAXIS forvenous thrombosis, systemic embolization; TREATMENT for venous thrombosis and/or pulmonary embolus.HIGH RISK: Target INR is 2.5-3.5 for patients with mechanical heart valves.POCT-GLUCOSE [id number] 19:04:00 Test Item Value Reference Range Interpretation Comments POC-GLUCOSE METER 128 mg/dL 70-110 H : TESTED A T [facility] 6720 ([employer]) (test code = NORM [facility], 1538) [address]: Quality Control Associate/Techni won ID = [id number] for Fo ntenotSengLevy CBC W/PLT COUNT & AUTO [id number] 15:37:00 Test Item Value Reference Range Interpretation [...] PERCENT (BEAKER) (test code = 2801) POCT-GLUCOSE [id number] 11:48:00 Test Item Value Reference Range Interpretation Comments POC-GLUCOSE METER 113 mg/dL 70-110 H : TESTED A T [facility] 6720 (BEAKER) (test code = NORM [facility], 1538) [address]: Quality Control Associate/Techni won ID = [id number] for THOMAS BRYANT POCT-GLUCOSE [id number] 07:41:00 Test Item Value Reference Range Interpretation Comments POC-GLUCOSE METER 119 mg/dL 70-110 H : TESTED A T [facility] 6720 (BEAKER) (test code = NORM [place] [facility], 1538) [address]: Quality Control Associate/Techni won ID = [id number] for THOMAS BRYANT PROTHROMBIN TIME/[id number] 06:34:00 Test Item Value Reference Range Interpretation Comments PROTIME (BEAKER) 35.3 seconds 11.9-14.2 H (test code = 759) INR (BEAKER) (test 3.56 See_Comment [Automat ed message] code = 370) The system [employer] generated this result transmitted ref erence range: <=5.90. The reference range was not used to int erpret this result as normal/abnormal . RECOMMENDED COUMADIN/WARFARIN INR THERAPY RANGESSTANDARD DOSE: 2.0 - 3.0 Includes: PROPHYLAXIS forvenous thrombosis, systemic embolization; TREATMENT for venous thrombosis and/or pulmonary embolus.HIGH RISK: Target INR is 2.5-3.5 for patients with mechanical heart valves.RAD, CHEST, 1 VIEW, NON [id number] 06:02:00Reason for exam:->intubatedShould this be performed at the bedside?->[facility] : 1975 Sex: [...] MDReport Verified Date/Time: 02/04/2021 06:02:13 BASIC METABOLIC [id number] 05:16:00 Test Item Value Reference Range Interpretation [...] S NOT APPLICABLE FOR DIALYSIS PATIEN TS. Quality Control Associate ID - VALDEZ [id number] 05:09:00 Test Item Value Reference Range Interpretation Comments PHOSPHORUS (BEAKER) (test code = 6.8 mg/dL 2.3-4.7 H 604) Quality Control Associate ID - VALDEZ [id number] 05:08:00 Test Item Value Reference Range Interpretation Comments MAGNESIUM (BEAKER) (test code = 1.9 mg/dL 1.6-2.6 627) Quality Control Associate ID - VALDEZ MCALCIUM, [id number] 05:01:00 Test Item Value Reference Range Interpretation Comments CALCIUM IONIZED (BEAKER) (test 1.12 mmol/L 1.12-1.27 code = 698) PH, BLOOD (BEAKER) (test code = 7.43 1810) CBC W/PLT COUNT & AUTO [id number] 04:49:00 Test Item Value Reference Range Interpretation [...] ABSOLUTE COUNT 7.15 K/ L 1.78-5.38 H ([facility]) (test code = 670) LYMPHOCYTES ABSOLUTE COUNT 0.85 K/ L 1.32-3.57 L (BEAKER) (test code = 414) MONOCYTES ABSOLUTE COUNT (BEAKER) 0.67 K/ L 0.30-0.82 (test code = 415) EOSINOPHILS ABSOLUTE COUNT 0.37 K/ L 0.04-0.54 (BEAKER) (test code = 416) BASOPHILS ABSOLUTE COUNT (BEAKER) 0.06 K/ L 0.01-0.08 (test code = 417) IMMATURE GRANULOCYTES-RELATIVE 0 % 0-1 PERCENT ([facility]) (test code = 2801) POCT-GLUCOSE [id number] 00:50:00 Test Item Value Reference Range Interpretation Comments POC-GLUCOSE METER 115 mg/dL 70-110 H : Notified RN/MD: ([facility]) (test code = TESTED AT [place] [address]) [facility], [address]: Quality Control Associate/Techni won ID = [id number] for Vinod Canas POCT-GLUCOSE [id number] 17:39:00 Test Item Value Reference Range Interpretation Comments POC-GLUCOSE METER 101 mg/dL 70-110 : TESTED A T [place] [address] ([facility]) (test code = [facility], 153) [address]: Quality Control Associate/Techni won ID = [id number] for RONAL PEREZ POCT-GLUCOSE [id number] 11:33:00 Test Item Value Reference Range Interpretation Comments POC-GLUCOSE METER 90 mg/dL 70-110 : TESTED A T [place] [address] ([facility]) (test code = [facility], [facility]) [address]: Quality Control Associate/Techni won ID = [id number] for VINOD, RONAL RAD, CHEST, 1 VIEW, NON [id number] 09:24:00Reason for exam:- >intubatedShould this be performed at the bedside?->Yes [facility] 1975 Sex: MFINAL REPORT [...] Cantu Verified Date/Time: 02/03/2021 09:24:45 Reading Location: [facility] Radiology Reading Room POCT-GLUCOSE METER 2021-02-03 07:45:00 Test Item Value Reference Range Interpretation Comments POC-GLUCOSE METER 87 mg/dL 70-110 : TESTED A T [facility] 6720 (BEAKER) (test code [facility], = 1538) [address]: Quality Control Associate/Techni won ID = [id number] for Timmy hernandez [id number]), [facility] BASIC METABOLIC [id number] 05:08:00 Test Item Value Reference Range Interpretation [...] S NOT APPLICABLE FOR DIALYSIS PATIEN TS. Quality Control Associate ID - PIRAFY [id number] 05:07:00 Test Item Value Reference Range Interpretation Comments MAGNESIUM (BEAKER) (test code = 1.9 mg/dL 1.6-2.6 627) Quality Control Associate ID - PIRAFY [id number] 05:07:00 Test Item Value Reference Range Interpretation Comments PHOSPHORUS (BEAKER) (test code = 5.9 mg/dL 2.3-4.7 H 604) Quality Control Associate ID - PIRAFY LCALCIUM, [id number] 03:59:00 Test Item Value Reference Range Interpretation Comments CALCIUM IONIZED (BEAKER) (test 1.13 mmol/L 1.12-1.27 code = 698) PH, BLOOD (BEAKER) (test code = 7.43 1810) CBC W/PLT COUNT & AUTO [id number] 03:45:00 Test Item Value Reference Range Interpretation [...] PERCENT (BEAKER) (test code = 2801) PROTHROMBIN [id number] 03:38:00 Test Item Value Reference Range Interpretation Comments PROTIME (BEAKER) 28.4 seconds 11.9-14.2 H (test code = 759) INR (BEAKER) (test 2.70 See_Comment [Automat ed message] code = 370) The system [employer] generated this result transmitted ref erence range: <=5.90. The reference range was not used to int erpret this result as normal/abnormal . RECOMMENDED COUMADIN/WARFARIN INR THERAPY RANGESSTANDARD DOSE: 2.0 - 3.0 Includes: PROPHYLAXIS forvenous thrombosis, systemic embolization; TREATMENT for venous thrombosis and/or pulmonary embolus.HIGH RISK: Target INR is 2.5-3.5 for patients with mechanical heart valves.POCT-GLUCOSE [id number] 22:10:00 Test Item Value Reference Range Interpretation Comments POC-GLUCOSE METER 85 mg/dL 70-110 : [facility] T [facility] 67[facility] (test code = [facility], 1538) [address]: Quality Control Associate/Techni won ID = [id number] for MESERET DE SOUZA AUBREY POCT-GLUCOSE [id number] 16:43:00 Test Item Value Reference Range Interpretation Comments POC-GLUCOSE METER 88 mg/dL 70-110 : [facility] T [facility] 6720 [facility] (test code = [facility], 1538) [address]: Quality Control Associate/Techni won ID = [id number] for IVONE ZHAO POCT-GLUCOSE [id number] 12:16:00 Test Item Value Reference Range Interpretation Comments POC-GLUCOSE METER 94 mg/dL 70-110 : TESTED A T [facility] 6720 ([facility]) (test code = [facility], 1538) [address]: Quality Control Associate/Techni won ID = [id number] for IVONE ZHAO RAD, CHEST, 1 VIEW, NON [id number] 08:20:00Reason for exam:- >intubatedShould this be performed at the bedside?->Yes [facility] : 1975 Sex: [...] Cantu Verified Date/Time: 02/02/2021 08:20:25 Reading Location: [facility] Radiology Reading Room XR chest 1 view portable / [id number] 08:20:00Interface, External Ris In - 02/02/2021 8:22 [...] Cantu Verified Date/Time: 02/02/2021 08:20:25 Reading Location: [facility] Radiology [facility] / [id number] 08:20:00Interface, External Ris In - 02/02/2021 8:22 [...] Cantu Verified Date/Time: 02/02/2021 08:20:25 Reading Location: [facility] Radiology Reading [facility] / [id number] 08:20:00Interface, External Ris In - 02/02/2021 8:22 [...] Cantu Verified Date/Time: 02/02/2021 08:20:25 Reading Location: [facility] Radiology Reading Room [facility]-Glucose [id number] 07:38:00 Test Item Value Reference Range Interpretation Comments POC-Glucose Meter (test 83 mg/dL 70-110 : TE STED AT [facility] code = 1538) [address] [place] [address], [address]: Quality Control Associate/Techni won ID = [id number] for VINOD, RONAL Lab Interpretation (test Normal code = 07984-0) [facility]-Glucose [id number] 07:38:00 Test Item Value Reference Range Interpretation Comments POC-Glucose Meter (test 83 mg/dL 70-110 : TE STED AT [facility] code = 1538) [address] [place] [address], [address]: Quality Control Associate/Techni won ID = [id number] for VINOD, RONAL Lab Interpretation (test Normal code = 34968-4) [facility]-Glucose [id number] 07:38:00 Test Item Value Reference Range Interpretation Comments POC-Glucose Meter (test 83 mg/dL 70-110 : TE STED AT [facility] code = 1538) [address] [place] [address], [address]: Quality Control Associate/Techni won ID = [id number] for VINOD, RONAL Lab Interpretation (test Normal code = 68004-7) [facility]-GLUCOSE [id number] 07:38:00 Test Item Value Reference Range Interpretation Comments POC-GLUCOSE METER 83 mg/dL 70-110 : TESTED A T [facility] 6720 (BEAKER) (test code = NORM [place] [facility], 1538) [address]: Quality Control Associate/Techni won ID = [id number] for RONAL BROCK Calcium, [id number] 06:32:00 Test Item Value Reference Range Interpretation Comments Calcium, Ion (test code = 1993-08) 1.09 mmol/L 1.12-1.27 L pH, Blood (test code = 16237-5) 7.42 Lab Interpretation (test code = Abnormal 03169-4) [facility] [id number] 06:32:00 Test Item Value Reference Range Interpretation Comments Calcium, Ion (test code = 1993-08) 1.09 mmol/L 1.12-1.27 L pH, Blood (test code = 13173-0) 7.42 Lab Interpretation (test code = Abnormal 54662-5) [facility], [id number] 06:32:00 Test Item Value Reference Range Interpretation Comments Calcium, Ion (test code = 1993-08) 1.09 mmol/L 1.12-1.27 L pH, Blood (test code = 66677-8) 7.42 Lab Interpretation (test code = Abnormal 87516-9) [facility], [id number] 06:32:00 Test Item Value Reference Range Interpretation Comments CALCIUM IONIZED (BEAKER) (test 1.09 mmol/L 1.12-1.27 L code = 698) PH, BLOOD (BEAKER) (test code = 7.42 1810) CBC with platelet count + automated [id number] 04:38:00 Test Item Value Reference Range Interpretation Comments WBC (test code = 6690-2) 8.8 See_Comment [A utomated message] The system [employer] generated this result transmitted ref erence range: 3.5 - 10 .5 K/L. The refe rence range was not u sed to interpret this result as normal/abnor mal. RBC (test code = 789-8) 2.72 See_Comment L [Au tomated message] The system [employer] generated this result transmitted ref erence range: 4.63 - 6 .08 M/L. The refe rence range was not u sed to interpret this result as normal/abnor mal. MCHC (test code = 786-4) 32.2 See_Comment L [A utomated message] The system [employer] generated this result transmitted ref erence range: [...] See_Comment [Aut omated message] 777-3) The system [employer] generated this result transmitted ref erence range: 150 - 45 0 K/CU MM. The referen ce range was not u sed to interpret this result as normal/abnor mal. MPV (test code = 9.9 fL 9.4-12.4 50914-6) nRBC (test code = 413) 0 See_Comment [Aut omated message] The system [employer] generated this result transmitted ref erence range: [...] H [Aut omated message] 670) The system [employer] generated this result transmitted ref erence range: 1.78 - 5 .38 K/L. The refe rence range was not u sed to interpret this result as normal/abnor mal. # Lymphs (test code = 0.63 See_Comment L [Auto mated message] 414) The system [employer] generated this result transmitted ref erence range: 1.32 - 3 .57 K/L. The refe rence range was not u sed to interpret this result as normal/abnor mal. # Monos (test code = 0.76 See_Comment [Autom ated message] 415) The system [employer] generated this result transmitted ref erence range: 0.30 - 0 .82 K/L. The refe rence range was not u sed to interpret this result as normal/abnor mal. # Eos (test code = 416) 0.44 See_Comment [Au tomated message] The system [employer] generated this result transmitted ref erence range: 0.04 - 0 .54 K/L. The refe rence range was not u sed to interpret this result as normal/abnor mal. # Baso (test code = 417) 0.07 See_Comment [A utomated message] The system [employer] generated this result transmitted ref erence range: 0.01 - 0 .08 K/L. The refe rence range was not u sed to interpret this result as normal/abnor mal. Immature 1 % 0-1 Granulocytes-Relative (test code = 2801) Lab Interpretation (test Abnormal code = 21210-6) [facility] with platelet count + automated [id number] 04:38:00 Test Item Value Reference Range Interpretation Comments WBC (test code = 6690-2) 8.8 See_Comment [A utomated message] The system [employer] generated this result transmitted ref erence range: 3.5 - 10 .5 K/L. The refe rence range was not u sed to interpret this result as normal/abnor mal. RBC (test code = 789-8) 2.72 See_Comment L [Au tomated message] The system [employer] generated this result transmitted ref erence range: 4.63 - 6 .08 M/L. The refe rence range was not u sed to interpret this result as normal/abnor mal. MCHC (test code = 786-4) 32.2 See_Comment L [A utomated message] The system [employer] generated this result transmitted ref erence range: [...] See_Comment [Aut omated message] 777-3) The system [employer] generated this result transmitted ref erence range: 150 - 45 0 K/CU MM. The referen ce range was not u sed to interpret this result as normal/abnor mal. MPV (test code = 9.9 fL 9.4-12.4 56702-9) nRBC (test code = 413) 0 See_Comment [Aut omated message] The system [employer] generated this result transmitted ref erence range: [...] H [Aut omated message] 670) The system [employer] generated this result transmitted ref erence range: 1.78 - 5 .38 K/L. The refe rence range was not u sed to interpret this result as normal/abnor mal. # Lymphs (test code = 0.63 See_Comment L [Auto mated message] 414) The system [employer] generated this result transmitted ref erence range: 1.32 - 3 .57 K/L. The refe rence range was not u sed to interpret this result as normal/abnor mal. # Monos (test code = 0.76 See_Comment [Autom ated message] 415) The system [employer] generated this result transmitted ref erence range: 0.30 - 0 .82 K/L. The refe rence range was not u sed to interpret this result as normal/abnor mal. # Eos (test code = 416) 0.44 See_Comment [Au tomated message] The system [employer] generated this result transmitted ref erence range: 0.04 - 0 .54 K/L. The refe rence range was not u sed to interpret this result as normal/abnor mal. # Baso (test code = 417) 0.07 See_Comment [A utomated message] The system [employer] generated this result transmitted ref erence range: 0.01 - 0 .08 K/L. The refe rence range was not u sed to interpret this result as normal/abnor mal. Immature 1 % 0-1 Granulocytes-Relative (test code = 2801) Lab Interpretation (test Abnormal code = 97324-3) [facility] with platelet count + automated [id number] 04:38:00 Test Item Value Reference Range Interpretation Comments WBC (test code = 6690-2) 8.8 See_Comment [A utomated message] The system [employer] generated this result transmitted ref erence range: 3.5 - 10 .5 K/L. The refe rence range was not u sed to interpret this result as normal/abnor mal. RBC (test code = 789-8) 2.72 See_Comment L [Au tomated message] The system [employer] generated this result transmitted ref erence range: 4.63 - 6 .08 M/L. The refe rence range was not u sed to interpret this result as normal/abnor mal. MCHC (test code = 786-4) 32.2 See_Comment L [A utomated message] The system [employer] generated this result transmitted ref erence range: [...] code = 233 See_Comment [Aut omated message] 297-3) The system [employer] generated this result transmitted ref erence range: 150 - 45 0 K/CU MM. The referen ce range was not u sed to interpret this result as normal/abnor mal. MPV (test code = 9.9 fL 9.4-12.4 82676-5) nRBC (test code = 413) 0 See_Comment [Aut omated message] The system [employer] generated this result transmitted ref erence range: [...] H [Aut omated message] 670) The system [employer] generated this result transmitted ref erence range: 1.78 - 5 .38 K/L. The refe rence range was not u sed to interpret this result as normal/abnor mal. # Lymphs (test code = 0.63 See_Comment L [Auto mated message] 414) The system [employer] generated this result transmitted ref erence range: 1.32 - 3 .57 K/L. The refe rence range was not u sed to interpret this result as normal/abnor mal. # Monos (test code = 0.76 See_Comment [Autom ated message] 415) The system [employer] generated this result transmitted ref erence range: 0.30 - 0 .82 K/L. The refe rence range was not u sed to interpret this result as normal/abnor mal. # Eos (test code = 416) 0.44 See_Comment [Au tomated message] The system [employer] generated this result transmitted ref erence range: 0.04 - 0 .54 K/L. The refe rence range was not u sed to interpret this result as normal/abnor mal. # Baso (test code = 417) 0.07 See_Comment [A utomated message] The system [employer] generated this result transmitted ref erence range: 0.01 - 0 .08 K/L. The refe rence range was not u sed to interpret this result as normal/abnor mal. Immature 1 % 0-1 Granulocytes-Relative (test code = 2801) Lab Interpretation (test Abnormal code = 49770-3) [facility] W/PLT COUNT & AUTO [id number] 04:38:00 Test Item Value Reference Range Interpretation [...] (BEAKER) (test code = 2801) Basic Metabolic [id number] 04:28:00 Test Item Value Reference Range Interpretation Comments Sodium (test code = 138 meq/L 148-907 6601-2) Potassium (test code = 4.4 meq/L 3.5-5.1 2823-3) Chloride (test code = 104 meq/L 98-107 2075-0) CO2 (test code = 24 meq/L -2027-) BUN (test code = 40 mg/dL 7-21 H 3094-0) Creatinine (test code 4.27 mg/dL 0.57-1.25 H = 2160-0) Glucose (test code = 94 mg/dL 70-105 2345-7) Calcium (test code = 8.3 mg/dL 8.4-10.2 L 39366-0) EGFR (test code = 19 mL/min/1[place] [address]-0) NOT ACCURATE CREATININE CLEARANCE IN PREDICTING GLOMERULAR FILTRATION RATE . ESTIMATED GFR I S NOT APPLICABLE FOR DIALYSIS PATIENTS. CARLEY (test code = CARLEY) Quality Control Associate ID - VALDEZ M Lab Interpretation Abnormal (test code = 16569-9) [facility] [id number] 04:28:00 Test Item Value Reference Range Interpretation Comments Sodium (test code = 138 meq/L 912-697 7721-2) Potassium (test code = 4.4 meq/L 3.5-5.1 2823-3) Chloride (test code = 104 meq/L 98-107 2075-0) CO2 (test code = 24 meq/L -9) BUN (test code = 40 mg/dL 7-21 H 3094-0) Creatinine (test code 4.27 mg/dL 0.57-1.25 H = 2160-0) Glucose (test code = 94 mg/dL 70-105 2345-7) Calcium (test code = 8.3 mg/dL 8.4-10.2 L 07420-3) EGFR (test code = 19 mL/min/1.[place] [address]-5) NOT ACCURATE CREATININE CLEARANCE IN PREDICTING GLOMERULAR FILTRATION RATE . ESTIMATED GFR I S NOT APPLICABLE FOR DIALYSIS PATIENTS. CARLEY (test code = CARLEY) Quality Control Associate ID - VALDEZ M Lab Interpretation Abnormal (test code = 28603-0) [facility] Metabolic [id number] 04:28:00 Test Item Value Reference Range Interpretation Comments Sodium (test code = 138 meq/L 814-372 0706-2) Potassium (test code = 4.4 meq/L 3.5-5.1 2823-3) Chloride (test code = 104 meq/L 98-107 5-0) CO2 (test code = 24 meq/L 22-29 8-9) BUN (test code = 40 mg/dL 7-21 H 3094-0) Creatinine (test code 4.27 mg/dL 0.57-1.25 H = 2160-0) Glucose (test code = 94 mg/dL 70-105 2345-7) Calcium (test code = 8.3 mg/dL 8.4-10.2 L 92905-5) EGFR (test code = 19 mL/min/1[place] [address]-9) NOT ACCURATE CREATININE CLEARANCE IN PREDICTING GLOMERULAR FILTRATION RATE . ESTIMATED GFR I S NOT APPLICABLE FOR DIALYSIS PATIENTS. CARLEY (test code = CARLEY) Quality Control Associate ID - VALDEZ M Lab Interpretation Abnormal (test code = 76261-1) [facility] METABOLIC [id number] 04:28:00 Test Item Value Reference Range Interpretation [...] S NOT APPLICABLE FOR DIALYSIS PATIEN TS. Quality Control Associate [facility] 04:14:00 Test Item Value Reference Range Interpretation Comments Magnesium (test code = 2.0 mg/dL 1.6-2.6 68956-1) CARLEY (test code = CARLEY) Quality Control Associate ID - [facility] Lab Interpretation (test Normal code = 64290-3) [facility]2021-08-26 04:14:00 Test Item Value Reference Range Interpretation Comments Phosphorus (test code = 4.6 mg/dL 2.3-4.7 2777-1) CARLEY (test code = CARLEY) Quality Control Associate ID - [facility] Lab Interpretation (test Normal code = 04817-4) [facility] Test Item Value Reference Range Interpretation Comments Magnesium (test code = 2.0 mg/dL 1.6-2.6 05715-7) CARLEY (test code = CARLEY) Quality Control Associate ID - [facility] Lab Interpretation (test Normal code = 87289-9) [facility]2021-08-26 04:14:00 Test Item Value Reference Range Interpretation Comments Phosphorus (test code = 4.6 mg/dL 2.3-4.7 2777-1) CARLEY (test code = CARLEY) Quality Control Associate ID - [facility] Lab Interpretation (test Normal code = 25910-1) [facility] 04[facility]14:00 Test Item Value Reference Range Interpretation Comments Magnesium (test code = 2.0 mg/dL 1.6-2.6 79578-0) CARLEY (test code = CARLEY) Quality Control Associate ID - [facility] Lab Interpretation (test Normal code = 91080-5) [facility]2021-08-26 04:14:00 Test Item Value Reference Range Interpretation Comments Phosphorus (test code = 4.6 mg/dL 2.3-4.7 2777-1) CARLEY (test code = CARLEY) Quality Control Associate ID Doretha KELLOGG M Lab Interpretation (test Normal code = 36702-6) [facility] 04:14:00 Test Item Value Reference Range Interpretation Comments MAGNESIUM (BEAKER) (test code = 2.0 mg/dL 1.6-2.6 627) Quality Control Associate ID - VALDEZ [id number] 04:14:00 Test Item Value Reference Range Interpretation Comments PHOSPHORUS (BEAKER) (test code = 4.6 mg/dL 2.3-4.7 604) Quality Control Associate ID - [facility]Z [facility] [place], [id number] 04:12:00 Test Item Value Reference Range Interpretation Comments PTH (test code = 2731-8) 237.8 pg/mL 8.5-72.5 H CARLEY (test code = CARLEY) Quality Control Associate SHELBI KELLOGG Lab Interpretation (test Abnormal code = 59568-1) [facility], [id number] 04:12:00 Test Item Value Reference Range Interpretation Comments PTH (test code = 2731-8) 237.8 pg/mL 8.5-72.5 H CARLEY (test code = CARLEY) Quality Control Associate SHELBI KELLOGG Lab Interpretation (test Abnormal code = 08307-7) [facility], [id number] 04:12:00 Test Item Value Reference Range Interpretation Comments PTH (test code = 2731-8) 237.8 pg/mL 8.5-72.5 H CARLEY (test code = CARLEY) Quality Control Associate SHELBI KELLOGG Lab Interpretation (test Abnormal code = 94906-8) [facility], [id number] 04:12:00 Test Item Value Reference Range Interpretation Comments PARATHYROID HORMONE INTACT 237.8 pg/mL 8.5-72.5 H (BEAKER) (test code = 577) Quality Control Associate SHELBI Chen Prothrombin time/INR while on [id number] 03:58:00 Test Item Value Reference Interpretation Comments Range Protime (test code = 19.8 See_Comment H [Autom ated 5902-2) message] The system which generated this result transmitted reference range : 11.9 - 14.2 seconds. The reference range was not used to interpret this result as normal/abnormal . INR (test code = 1.71 See_Comment [Automated PeopleMatter1-6) message] The system which generated this result [...] valves. Lab Interpretation Abnormal (test code = 66082-9) [facility] Prothrombin time/INR while on warfarin 2021-02-02 03:58:00 Test Item Value Reference Interpretation Comments Range Protime (test code = 19.8 See_Comment H [Autom ated 5902-2) message] The system which generated this result transmitted reference range : 11.9 - 14.2 seconds. The reference range was not used to interpret this result as normal/abnormal . INR (test code = 1.71 See_Comment [Automated PeopleMatter1-6) message] The system which generated this result [...] valves. Lab Interpretation Abnormal (test code = 81924-0) [facility] Prothrombin time/INR while on warfarin [...] valves. Lab Interpretation Abnormal (test code = 25031-4) [facility] CenterPROTHROMBIN TIME/[id number] 03:58:00 Test Item Value Reference Range Interpretation Comments PROTIME (BEAKER) 19.8 seconds 11.9-14.2 H (test code = 759) INR (BEAKER) (test 1.71 See_Comment [Automat ed message] code = 370) The system [employer] generated this result transmitted ref erence range: <=5.90. The reference range was not used to int erpret this result as normal/abnormal . RECOMMENDED COUMADIN/WARFARIN INR THERAPY RANGESSTANDARD DOSE: 2.0 - 3.0 Includes: PROPHYLAXIS forvenous thrombosis, systemic embolization; TREATMENT for venous thrombosis and/or pulmonary embolus.HIGH RISK: Target INR is 2.5-3.5 for patients with mechanical heart valves.POCT-GLUCOSE [id number] 03:56:00 Test Item Value Reference Range Interpretation Comments POC-GLUCOSE METER 94 mg/dL 70-110 : TESTED A T [facility] 6720 ([employer]) (test code = [employer] [facility], 153) 10042: Quality Control Associate/Techni won ID = [id number] for Comp uesto, Ana Mariazacaseyo POCT-GLUCOSE [id number] 00:10:00 Test Item Value Reference Range Interpretation Comments POC-GLUCOSE METER 83 mg/dL 70-110 : TESTED A T [facility] 6720 ([employer]) (test code = [employer] [facility], 153) 93950: Quality Control Associate/Techni won ID = [id number] for Brody Ovalle POCT-GLUCOSE [id number] 15:37:00 Test Item Value Reference Range Interpretation Comments POC-GLUCOSE METER 73 mg/dL 70-110 : TESTED A T [facility] 6720 ([employer]) (test code = [employer] [facility], 1538) 01312: Quality Control Associate/Techni won ID = [id number] for Atwo od (V), Anurag POCT-GLUCOSE [id number] 14:59:00 Test Item Value Reference Range Interpretation Comments POC-GLUCOSE METER 68 mg/dL 70-110 L : TESTED A T [facility] 6720 (BEAKER) (test code = NORM Tenorio [facility], 1538) 77089: Quality Control Associate/Techni won ID = [id number] for Atwo od (V), Anurag CT, CHEST, WITHOUT [id number] 14:15:00ICU attending Dr. SteveUnlisted Reason for Exam - Click Yes and Enter Reason Below->YesUnlisted Reason for Exam->Evaluate [facility] eff[facility] 1975 Sex: [...] MDReport Verified Date/Time: 02/01/2021 14:15:18 Reading Location: [facility] C013Y CT Body Reading Room CT chest without IV [id number] 14:15:00Interface, External Ris In - 02/01/2021 2:17 [...] MDReport Verified Date/Time: 02/01/2021 14:15:18 Reading Location: [facility] C013Y CT [facility] 2021-02-01 14:15:00Interface, External [...] MDReport Verified Date/Time: 02/01/2021 14:15:18 Reading Location: [facility] C013Y CT [facility] 2021-02-01 14:15:00Interface, External [...] Reading Location: [facility] B1 C013Y CT Body [facility] [id number] 11:48:00 Test Item Value Reference Range Interpretation Comments POC-GLUCOSE METER 64 mg/dL 70-110 L : TESTED A T [facility] 6720 (BEAKER) (test code = NORM SHULTZ [place], 1538) 53726: Quality Control Associate/Techni won ID = [id number] for Edwin gardner (contract)Terence RAD, CHEST, 1 VIEW, NON [id number] 07:53:00Reason for exam:- >intubatedShould this be performed at the bedside?->Yes [facility] : 1975 Sex: [...] Re Cantu Verified Date/Time: 02/01/2021 07:53:28 Reading Location:[facility] Radiology Reading Room CALCIUM, [id number] 05:25:00 Test Item Value Reference Range Interpretation Comments CALCIUM IONIZED (BEAKER) (test 1.09 mmol/L 1.12-1.27 L code = 698) PH, BLOOD (BEAKER) (test code = 7.44 1810) BASIC METABOLIC [id number] 05:19:00 Test Item Value Reference Range Interpretation [...] S NOT APPLICABLE FOR DIALYSIS PATIEN TS. Quality Control Associate ID - PIRAFY JJMBCLVIVK2594-74-62 05:13:00 Test Item Value Reference Range Interpretation Comments MAGNESIUM (BEAKER) (test code = 2.0 mg/dL 1.6-2.6 627) Quality Control Associate ID - LINA GHCGVWMFLAM6309-77-43 05:13:00 Test Item Value Reference Range Interpretation Comments PHOSPHORUS (BEAKER) (test code = 4.9 mg/dL 2.3-4.7 H 604) Quality Control Associate ID - LINA LPROTHROMBIN TIME/[id number] 04:50:00 Test Item Value Reference Range Interpretation Comments PROTIME (BEAKER) 17.7 seconds 11.9-14.2 H (test code = 759) INR (BEAKER) (test 1.48 See_Comment [Automat ed message] code = 370) The system [employer] generated this result transmitted ref erence range: [...] PERCENT (BEAKER) (test code = 2801) POCT-GLUCOSE [id number] 01:16:00 Test Item Value Reference Range Interpretation Comments POC-GLUCOSE METER 79 mg/dL 70-110 : TESTED A T [facility] 6720 (BEAKER) (test code = [facility], 1538) 51300: Quality Control Associate/Techni won ID = [id number] for MUSE BE, CRESCENCIO POCT-GLUCOSE [id number] 22:03:00 Test Item Value Reference Range Interpretation Comments POC-GLUCOSE METER 83 mg/dL 70-110 : TESTED A T [facility] 6720 (BEAKER) (test code = [facility] [employer] [facility], 1538) 00235: Quality Control Associate/Techni won ID = [id number] for MUSE BE, CRESCENCIO Hemoglobin and [id number] 17:25:00 Test Item Value Reference Range Interpretation [...] = 4544-3) CARLEY (test code = CARLEY) Quality Control Associate ID - [id number] Lab Interpretation Abnormal (test code = 55171-5) [facility] CenterHemoglobin and flvxqvzomt9833-21-72 17:25:00 Test Item Value Reference Range Interpretation [...] = 4544-3) CARLEY (test code = CARLEY) Quality Control Associate ID - [id number] Lab Interpretation Abnormal (test code = 58011-1) [facility] CenterHemoglobin and fdytjevwlf9566-03-95 17:25:00 Test Item Value Reference Range Interpretation [...] = 4544-3) CARLEY (test code = CARLEY) Quality Control Associate ID - [id number] Lab Interpretation Abnormal (test code = 22453-1) [facility] CenterHEMOGLOBIN AND [id number] 17:25:00 Test Item Value Reference Range Interpretation Comments HEMOGLOBIN (BEAKER) (test code = 7.5 GM/DL 13.7-17.5 L 410) HEMATOCRIT (BEAKER) (test code = 23.1 % 40.1-51.0 L 411) Quality Control Associate ID - [id number]-GLUCOSE [id number] 11:36:00 Test Item Value Reference Range Interpretation Comments POC-GLUCOSE METER 105 mg/dL 70-110 : TESTED A T [facility] 6720 (BEAKER) (test code = [facility] [employer] [facility], 1538) 06070: Quality Control Associate/Techni won ID = [id number] for RONAL PEREZ POCT-GLUCOSE [id number] 07:26:00 Test Item Value Reference Range Interpretation Comments POC-GLUCOSE METER 69 mg/dL 70-110 L : TESTED A T [facility] 6720 (BEAKER) (test code = [employer] [facility], 1538) 30158: Quality Control Associate/Techni won ID = [id number] for RONAL BROCK BASIC METABOLIC [id number] 05:40:00 Test Item Value Reference Range Interpretation [...] S NOT APPLICABLE FOR DIALYSIS PATIEN TS. Quality Control Associate ID - LINA [id number] 05:24:00 Test Item Value Reference Range Interpretation Comments MAGNESIUM (BEAKER) (test code = 2.0 mg/dL 1.6-2.6 627) Quality Control Associate ID - LINA [id number] 05:24:00 Test Item Value Reference Range Interpretation Comments PHOSPHORUS (BEAKER) (test code = 4.1 mg/dL 2.3-4.7 604) Quality Control Associate ID - LINA LCBC W/PLT COUNT & AUTO [id number] 05:04:00 Test Item Value Reference Range Interpretation [...] (BEAKER) (test code = 2801) Lactic Acid, [id number] 04:53:00 Test Item Value Reference Range Interpretation Comments Lactate, Art (test code = 0.4 mmol/L 0.5-2.2 L 2874) CARLEY (test code = CARLEY) Quality Control Associate ID - PIAYA L Lab Interpretation (test Abnormal code = 87374-4) [facility] CenterL[facility] Acid, [id number] 04:53:00 Test Item Value Reference Range Interpretation Comments Lactate, Art (test code = 0.4 mmol/L 0.5-2.2 L 2874) CARLEY (test code = CARLEY) Quality Control Associate ID - PIAYA L Lab Interpretation (test Abnormal code = 90401-2) [facility] CenterLactic Acid, [id number] 04:53:00 Test Item Value Reference Range Interpretation Comments Lactate, Art (test code = 0.4 mmol/L 0.5-2.2 L 2874) CARLEY (test code = CARLEY) Quality Control Associate ID - PIAYA L Lab Interpretation (test Abnormal code = 19212-4) [facility] CenterLACTIC ACID, [id number] 04:53:00 Test Item Value Reference Range Interpretation Comments LACTATE BLOOD ARTERIAL (2) 0.4 mmol/L 0.5-2.2 L (BEAKER) (test code = 2874) Quality Control Associate ID - LINA MartinezAaQIT5641-97-55 04:49:00 Test Item Value Reference Range Interpretation Comments PTT (test code = 40.1 See_Comment H [Automated message] 52357-6) The system [employer] generated this result transmitted ref erence range: 22.5 - 3 6.0 seconds. The reference range was not used to int erpret this result as normal/abnormal . Lab Interpretation (test Abnormal code = 07683-1) [facility] CenterPT/[id number] 04:49:00 Test Item Value Reference Interpretation Comments Range Protime (test code = 17.9 See_Comment H [Autom ated 5902-2) message] The system which generated this result transmitted reference range : 11.9 - 14.2 seconds. The reference range was not used to interpret this result as normal/abnormal . INR (test code = 1.50 See_Comment [Automated 9223-6) message] The system which generated this result transmitted reference range : <=5.90. The reference range was not used to interpret this result as normal/abnormal . PTT (test code = 40.1 See_Comment H [Automated 56330-8) message] The system which generated this result [...] valves. Lab Interpretation Abnormal (test code = 89212-0) [facility] CenteraPTT2021-08-[facility] 04:49:00 Test Item Value Reference Range Interpretation Comments PTT (test code = 40.1 See_Comment H [Automated message] 99413-6) The system [employer] generated this result transmitted ref erence range: 22.5 - 3 6.0 seconds. The reference range was not used to int erpret this result as normal/abnormal . Lab Interpretation (test Abnormal code = 45239-4) [facility] CenterPT/[id number] 04:49:00 Test Item Value Reference Interpretation Comments Range Protime (test code = 17.9 See_Comment H [Autom ated 5902-2) message] The system which generated this result transmitted reference range : 11.9 - 14.2 seconds. The reference range was not used to interpret this result as normal/abnormal . INR (test code = 1.50 See_Comment [Automated 8291-6) message] The system which generated this result transmitted reference range : <=5.90. The reference range was not used to interpret this result as normal/abnormal . PTT (test code = 40.1 See_Comment H [Automated 70082-1) message] The system which generated this result [...] valves. Lab Interpretation Abnormal (test code = 40546-0) [facility] CenteraPTT2021-[facility] 04:49:00 Test Item Value Reference Range Interpretation Comments PTT (test code = 40.1 See_Comment H [Automated message] 76629-4) The system [employer] generated this result transmitted ref erence range: 22.5 - 3 6.0 seconds. The reference range was not used to int erpret this result as normal/abnormal . Lab Interpretation (test Abnormal code = 90579-1) [facility] CenterPT/[id number] 04:49:00 Test Item Value Reference Interpretation Comments Range Protime (test code = 17.9 See_Comment H [Autom ated 5902-2) message] The system which generated this result transmitted reference range : 11.9 - 14.2 seconds. The reference range was not used to interpret this result as normal/abnormal . INR (test code = 1.50 See_Comment [Automated 8671-6) message] The system which generated this result transmitted reference range : <=5.90. The reference range was not used to interpret this result as normal/abnormal . PTT (test code = 40.1 See_Comment H [Automated 28614-5) message] The system which generated this result [...] valves. Lab Interpretation Abnormal (test code = 80420-5) [facility] CenterAPTT2021-08-[facility] 04:49:00 Test Item Value Reference Range Interpretation Comments PARTIAL THROMBOPLASTIN TIME 40.1 seconds 22.5-36.0 H (BEAKER) (test code = 760) [id number] 04:49:00 Test Item Value Reference Range Interpretation [...] 2.5-3.5 for patients with mechanical heart valves.PROTHROMBIN TIME/[id number] 04:48:00 Test Item Value Reference Range Interpretation [...] for patients with mechanical heart valves.Blood gas, [id number] 04:44:00 Test Item Value Reference Range Interpretation Comments pH, Arterial (test code 7.49 7.35-7.45 H = 2744-1) pCO2, Arterial (test 37 See_Comment [Autom ated message] code = 2019-01) The system [facility] generated this result transmit ari reference range : 35 - 45 mm Hg. The reference range was not used to interpret this result as normal/abnormal . pO2, Arterial (test 130 See_Comment H [Automa ari message] code = 2703-7) The system [facility] generated this result transmit ari reference range [...] 35 Lab Interpretation Abnormal (test code = 68685-6) [facility] CenterBlood gas, [id number] 04:44:00 Test Item Value Reference Range Interpretation Comments pH, Arterial (test code 7.49 7.35-7.45 H = 2744-1) pCO2, Arterial (test 37 See_Comment [Autom ated message] code = 2019-01) The system [facility] generated this result transmit ari reference range : 35 - 45 mm Hg. The reference range was not used to interpret this result as normal/abnormal . pO2, Arterial (test 130 See_Comment H [Automa ari message] code = 2703-7) The system [facility] generated this result transmit ari reference range [...] 35 Lab Interpretation Abnormal (test code = 26415-9) [facility] CenterBlood gas, ehatfwrg2775-09-43 04:44:00 Test Item Value Reference Range Interpretation Comments pH, Arterial (test code 7.49 7.35-7.45 H = 2744-1) pCO2, Arterial (test 37 See_Comment [Autom ated message] code = 2019-8) The system [employer] generated this result transmit ari reference range : 35 - 45 mm Hg. The reference range was not used to interpret this result as normal/abnormal . pO2, Arterial (test 130 See_Comment H [Automa ari message] code = 2703-7) The system [employer] generated this result transmit ari reference range [...] 35 Lab Interpretation Abnormal (test code = 59890-5) [facility] GAS, [id number] 04:44:00 Test Item Value Reference Range Interpretation [...] (BEAKER) (test code = 1819) 35.0 CALCIUM, [id number] 04:44:00 Test Item Value Reference Range Interpretation Comments CALCIUM IONIZED (BEAKER) (test 1.11 mmol/L 1.12-1.27 L code = 698) PH, BLOOD (BEAKER) (test code = 7.49 1810) RAD, CHEST, 1 VIEW, NON [id number] 04:44:00Reason for exam:- >intubatedShould this be performed at the bedside?->Yes [facility] 1975 Sex: [...] perfusions. There is no pneumothorax. Signed: Buck Warrne MDReport Verified Date/Time: 01/31/2021 04:44:53 Prepare Leuko-Red [id number] 23:54:00 Test Item Value Reference Range Interpretation Comments CROSSMATCH (test code = 2264) COMPATIBLE Unit ABO (test code = O Neg [id number]) UNIT NUMBER (test code = [id number] 934-0) Status (test code = 5264361) TX_TIMEINCHART Blood Bank Product (test code RED BLOOD CELLS = 2263) PRODUCT CODE (test code = M1862T03 933-2) [facility] CenterPrepare Leuko-Red [id number] 23:54:00 Test Item Value Reference Range Interpretation Comments CROSSMATCH (test code = 2264) COMPATIBLE Unit ABO (test code = O Neg 2461044) UNIT NUMBER (test code = [id number] 934-0) Status (test code = 9629545) TX_TIMEINCHART Blood Bank Product (test code RED BLOOD CELLS = 2263) PRODUCT CODE (test code = W0567I77 933-2) [facility] CenterPrepare Leuko-Red [id number] 23:54:00 Test Item Value Reference Range Interpretation Comments CROSSMATCH (test code = 2264) COMPATIBLE Unit ABO (test code = O Neg 7970019) UNIT NUMBER (test code = [id number] 934-0) Status (test code = 0155473) TX_TIMEINCHART Blood Bank Product (test code RED BLOOD CELLS = 2263) PRODUCT CODE (test code = S3608F68 933-2) [facility] CenterHGB/HCT (H&H)-Stat [id number] 21:11:00 Test Item Value Reference Range Interpretation Comments Hemoglobin (test code = 7.8 See_Comment L [Au tomated message] 786-4) The system [employer] generated this result transmitted ref erence range: 13.0 - 1 6.8 GM/DL. The refe rence range was not u sed to interpret this result as normal/abnor mal. Hematocrit (test code = 23.0 % 40-50 L 4544-3) Lab Interpretation (test Abnormal code = 69518-5) [facility] CenterHGB/HCT (H&H)-Stat [id number] 21:11:00 Test Item Value Reference Range Interpretation Comments Hemoglobin (test code = 7.8 See_Comment L [Au tomated message] 786-4) The system [employer] generated this result transmitted ref erence range: 13.0 - 1 6.8 GM/DL. The refe rence range was not u sed to interpret this result as normal/abnor mal. Hematocrit (test code = 23.0 % 40-50 L 4544-3) Lab Interpretation (test Abnormal code = 05680-8) [facility] CenterHGB/HCT (H&H)-Stat [id number] 21:11:00 Test Item Value Reference Range Interpretation Comments Hemoglobin (test code = 7.8 See_Comment L [Au tomated message] 786-4) The system [employer] generated this result transmitted ref erence range: 13.0 - 1 6.8 GM/DL. The refe rence range was not u sed to interpret this result as normal/abnor mal. Hematocrit (test code = 23.0 % 40-50 L 4544-3) Lab Interpretation (test Abnormal code = 18228-7) [facility] CenterBLOOD GAS, [id number] 21:11:00 Test Item Value Reference Range Interpretation [...] = 1819) 35.0 HGB/HCT (H&H) - STAT [id number] 21:11:00 Test Item Value Reference Range Interpretation Comments HEMOGLOBIN (BEAKER) (test code = 7.8 GM/DL 13.0-16.8 L 410) HEMATOCRIT (BEAKER) (test code = 23.0 % 40.0-50.0 L 411) Glucose-Stat [id number] 21:10:00 Test Item Value Reference Range Interpretation Comments Glucose (test code = 2345-7) 106 mg/dL 70-110 Lab Interpretation (test code = Normal 51781-0) [facility] [id number] 21:10:00 Test Item Value Reference Range Interpretation Comments Sodium (test code = 2951-2) 135 meq/L 136-145 L Lab Interpretation (test code = Abnormal 10939-5) [facility] CenterPotassium-Stat [id number] 21:10:00 Test Item Value Reference Range Interpretation Comments Potassium (test code = 2823-3) 3.8 meq/L 3.6-5.5 Lab Interpretation (test code = Normal 05553-9) [facility] CenterGlucose-Stat [id number] 21:10:00 Test Item Value Reference Range Interpretation Comments Glucose (test code = 2345-7) 106 mg/dL 70-110 Lab Interpretation (test code = Normal 89364-5) [facility] Na-Stat [id number] 21:10:00 Test Item Value Reference Range Interpretation Comments Sodium (test code = 2951-2) 135 meq/L 136-145 L Lab Interpretation (test code = Abnormal 33518-5) [facility] Center[facility]assium[facility]Stat [id number] 21:10:00 Test Item Value Reference Range Interpretation Comments Potassium (test code = 2823-3) 3.8 meq/L 3.6-5.5 Lab Interpretation (test code = Normal 16343-8) [facility] CenterGlucose[facility]Stat [id number] 21:10:00 Test Item Value Reference Range Interpretation Comments Glucose (test code = 2345-7) 106 mg/dL 70-110 Lab Interpretation (test code = Normal 08375-8) [facility] Na-Stat [id number] 21:10:00 Test Item Value Reference Range Interpretation Comments Sodium (test code = 2951-2) 135 meq/L 136-145 L Lab Interpretation (test code = Abnormal 60696-3) [facility] CenterPotassium[facility]Stat [id number] 21:10:00 Test Item Value Reference Range Interpretation Comments Potassium (test code = 2823-3) 3.8 meq/L 3.6-5.5 Lab Interpretation (test code = Normal 24755-5) [facility] CenterGLUCOSE-STAT [id number] 21:10:00 Test Item Value Reference Range Interpretation Comments GLUCOSE RANDOM (BEAKER) (test code 106 mg/dL 70-110 = 652) SODIUM NA-STAT [id number] 21:10:00 Test Item Value Reference Range Interpretation Comments SODIUM (BEAKER) (test code = 381) 135 meq/L 136-145 L POTASSIUM-STAT [id number] 21:10:00 Test Item Value Reference Range Interpretation Comments POTASSIUM (BEAKER) (test code = 3.8 meq/L 3.6-5.5 379) BASIC METABOLIC [id number] 19:47:00 Test Item Value Reference Range Interpretation [...] S NOT APPLICABLE FOR DIALYSIS PATIEN TS. Quality Control Associate ID - [id number] 19:47:00 Test Item Value Reference Range Interpretation Comments MAGNESIUM (BEAKER) (test code = 1.8 mg/dL 1.6-2.6 627) Quality Control Associate ID - DBPROTHROMBIN TIME/[id number] 19:36:00 Test Item Value Reference Range Interpretation Comments PROTIME (BEAKER) 19.1 seconds 11.9-14.2 H (test code = 759) INR (BEAKER) (test 1.63 See_Comment [Automat ed message] code = 370) The system [employer] generated this result transmitted ref erence range: <=5.90. The reference range was not used to int erpret this result as normal/abnormal . RECOMMENDED COUMADIN/WARFARIN INR THERAPY RANGESSTANDARD DOSE: 2.0 - 3.0 Includes: PROPHYLAXIS forvenous thrombosis, systemic embolization; TREATMENT for venous thrombosis and/or pulmonary embolus.HIGH RISK: Target INR is 2.5-3.5 for patients with mechanical heart valves.CALCIUM, [id number] 19:26:00 Test Item Value Reference Range Interpretation Comments CALCIUM IONIZED (BEAKER) (test 1.15 mmol/L 1.12-1.27 code = 698) PH, BLOOD (BEAKER) (test code = 7.50 1810) POCT-GLUCOSE [id number] 18:48:00 Test Item Value Reference Range Interpretation Comments POC-GLUCOSE METER 94 mg/dL 70-110 : TESTED A T [facility] 6720 (BEAKER) (test code = [employer] [facility], 1538) 38824: Quality Control Associate/Techni won ID = [id number] for Gianfranco s, Paige POCT-GLUCOSE [id number] 12:38:00 Test Item Value Reference Range Interpretation Comments POC-GLUCOSE METER 111 mg/dL 70-110 H : TESTED A T [facility] 6720 (BEAKER) (test code = [employer] [facility], 1538) 07895: Quality Control Associate/Techni won ID = [id number] for Da vis, Paige PROTHROMBIN TIME/[id number] 12:37:00 Test Item Value Reference Range Interpretation Comments PROTIME (BEAKER) 19.6 seconds 11.9-14.2 H (test code = 759) INR (BEAKER) (test 1.68 See_Comment [Automat ed message] code = 370) The system [employer] generated this result transmitted ref erence range: <=5.90. The reference range was not used to int erpret this result as normal/abnormal . RECOMMENDED COUMADIN/WARFARIN INR THERAPY RANGESSTANDARD DOSE: 2.0 - 3.0 Includes: PROPHYLAXIS forvenous thrombosis, systemic embolization; TREATMENT for venous thrombosis and/or pulmonary embolus.HIGH RISK: Target INR is 2.5-3.5 for patients with mechanical heart valves.POCT-GLUCOSE [id number] 06:19:00 Test Item Value Reference Range Interpretation Comments POC-GLUCOSE METER 100 mg/dL 70-110 : TESTED A T [facility] 6720 (BEAKER) (test code = NORM [employer] [facility], 1538) 44379: Quality Control Associate/Techni won ID = [id number] for VINOD CHAUDHARY BLOOD GAS, [id number] 05:07:00 Test Item Value Reference Range Interpretation [...] 1819) 60.0 RAD, CHEST, 1 VIEW, NON [id number] 04:36:00Reason for exam:- >intubatedShould this be performed at the bedside?->Yes [facility] : 1975 Sex: [...] Warren Verified Date/Time: 01/30/2021 04:36:28 BASIC METABOLIC [id number] 02:59:00 Test Item Value Reference Range Interpretation [...] S NOT APPLICABLE FOR DIALYSIS PATIEN TS. Quality Control Associate ID - [id number] 02:45:00 Test Item Value Reference Range Interpretation Comments MAGNESIUM (BEAKER) (test code = 2.1 mg/dL 1.6-2.6 627) Quality Control Associate ID - [id number] 02:45:00 Test Item Value Reference Range Interpretation Comments PHOSPHORUS (BEAKER) (test code = 4.6 mg/dL 2.3-4.7 604) Quality Control Associate ID - [id number] 02:42:00 Test Item Value Reference Range Interpretation Comments PARTIAL THROMBOPLASTIN TIME 44.4 seconds 22.5-36.0 H (BEAKER) (test code = 760) PT/[id number] 02:42:00 Test Item Value Reference Range Interpretation Comments PROTIME (BEAKER) (test 20.9 seconds 11.9-14.2 H code = 759) INR (BEAKER) (test 1.83 See_Comment [Automat ed code = 370) message] The Telera stem which generated this result transmitted reference [...] 2.5-3.5 for patients with mechanical heart valves.PROTHROMBIN TIME/[id number] 02:41:00 Test Item Value Reference Range Interpretation Comments PROTIME (BEAKER) 20.9 seconds 11.9-14.2 H (test code = 759) INR (BEAKER) (test 1.83 See_Comment [Automat ed message] code = 370) The system [employer] generated this result transmitted ref erence range: <=5.90. The reference range was not used to int erpret this result as normal/abnormal . RECOMMENDED COUMADIN/WARFARIN INR THERAPY RANGESSTANDARD DOSE: 2.0 - 3.0 Includes: PROPHYLAXIS forvenous thrombosis, systemic embolization; TREATMENT for venous thrombosis and/or pulmonary embolus.HIGH RISK: Target INR is 2.5-3.5 for patients with mechanical heart valves.LACTIC ACID, [id number] 02:40:00 Test Item Value Reference Range Interpretation Comments LACTATE BLOOD ARTERIAL (2) 0.6 mmol/L 0.5-2.2 (BEAKER) (test code = 2874) Quality Control Associate ID - DBCALCIUM, [id number] 02:34:00 Test Item Value Reference Range Interpretation Comments CALCIUM IONIZED (BEAKER) (test 1.15 mmol/L 1.12-1.27 code = 698) PH, BLOOD (BEAKER) (test code = 7.47 1810) BLOOD GAS, [id number] 02:34:00 Test Item Value Reference Range Interpretation [...] 1819) 50.0 CBC W/PLT COUNT & AUTO [id number] 02:33:00 Test Item Value Reference Range Interpretation [...] (BEAKER) (test code = 2801) Oxygen saturation, [id number] 02:32:00 Test Item Value Reference Range Interpretation Comments O2 Saturation (Measured) (test code = 66.8 % 06901-4) [facility] CenterOxygen saturation, [id number] 02:32:00 Test Item Value Reference Range Interpretation Comments O2 Saturation (Measured) (test code = 66.8 % 36091-5) [facility] CenterOxygen saturation, [id number] 02:32:00 Test Item Value Reference Range Interpretation Comments O2 Saturation (Measured) (test code = 66.8 % 48350-9) [facility] CenterOXYGEN SATURATION, [id number] 02:32:00 Test Item Value Reference Range Interpretation Comments O2 SATURATION (MEASURED) (BEAKER) 66.8 % (test code = 1455) CT, BRAIN, WITHOUT [id number] 02:20:00Unlisted Reason for Exam - Click Yes and Enter Reason Below->No [facility] 1975 Sex: MFINAL [...] Buck Warren MDReport Verified Date/Time: 01/30/2021 02:20:02 [facility] [place], [place] [id number] 02:20:00Unlisted Reason for Exam - Click Yes and Enter Reason Below->YesUnlisted Reason for Exam->r/o m ycotic anuerysmRAN[facility]Name: [facility] : 1975 Sex: [...] Buck Warren MDReport Verified Date/Time: 01/30/2021 02:20:02 [facility] [place] [id number] 02:20:00Interface, External Ris In - 01/30/2021 2:23 [...] CTA head:No intracranial aneurysm. Signed: Buck Warren [facility] Verified Date/Time: 01/30/2021 02:20:02 [facility] [id number] 02:20:00Interface, External Ris In - 01/30/2021 2:23 [...] CTA head:No intracranial aneurysm. Signed: [facility] Verified Date/Time: 01/30/2021 02:20:02 [facility] [id number] 02:20:00 Interface, External Ris In - 01/30/2021 [...] CTA head:No intracranial aneurysm. Signed: Buck Warren [facility] Verified Date/Time: 01/30/2021 02:20:02 [facility] IV [id number] 02:20:00Interface, External Ris In - 01/30/2021 2:23 [...] CTA head:No intracranial aneurysm. Signed: Buck [facility] Verified Date/Time: 01/30/2021 02:20:02 [facility] [id number] 02:20:00Interface, External Ris In - 01/30/2021 2:23 [...] CTA head:No intracranial aneurysm. Signed: Buck [facility] Verified Date/Time: 01/30/2021 02:20:02 [facility] without IV [id number] 02:20:00Interface, External Ris In - 01/30/2021 2:23 [...] described. CTA head:No intracranial aneurysm. Signed: [facility] Verified Date/Time: 01/30/2021 02:20:02 [facility]PO[facility]SE [id number] 23:30:00 Test Item Value Reference Range Interpretation Comments POC-GLUCOSE METER 107 mg/dL 70-110 : TESTED A T [facility] 6720 (BEAKER) (test code = NORM [employer] [facility], 1538) 58184: Quality Control Associate/Techni won ID = [id number] for VINOD CHAUDHARY CBC W/PLT COUNT & AUTO [id number] 19:35:00 Test Item Value Reference Range Interpretation [...] PERCENT (BEAKER) (test code = 2801) POCT-GLUCOSE [id number] 18:16:00 Test Item Value Reference Range Interpretation Comments POC-GLUCOSE METER 99 mg/dL 70-110 : TESTED A T [facility] 6720 (BEAKER) (test code = NORM [place], 1538) 455[address]: Quality Control Associate/Techni won ID = [id number] for RONAL BROCK PROTHROMBIN TIME/[id number] 18:16:00 Test Item Value Reference Range Interpretation Comments PROTIME (BEAKER) 21.4 seconds 11.9-14.2 H (test code = 759) INR (BEAKER) (test 1.89 See_Comment [Automat ed message] code = 370) The system [employer] generated this result transmitted ref erence range: <=5.90. The reference range was not used to int erpret this result as normal/abnormal . RECOMMENDED COUMADIN/WARFARIN INR THERAPY RANGESSTANDARD DOSE: 2.0 - 3.0 Includes: PROPHYLAXIS forvenous thrombosis, systemic embolization; TREATMENT for venous thrombosis and/or pulmonary embolus.HIGH RISK: Target INR is 2.5-3.5 for patients with mechanical heart valves.PROTHROMBIN TIME/[id number] 15:23:00 Test Item Value Reference Range Interpretation Comments PROTIME (BEAKER) 21.5 seconds 11.9-14.2 H (test code = 759) INR (BEAKER) (test 1.90 See_Comment [Automat ed message] code = 370) The system [employer] generated this result transmitted ref erence range: <=5.90. The reference range was not used to int erpret this result as normal/abnormal . RECOMMENDED COUMADIN/WARFARIN INR THERAPY RANGESSTANDARD DOSE: 2.0 - 3.0 Includes: PROPHYLAXIS forvenous thrombosis, systemic embolization; TREATMENT for venous thrombosis and/or pulmonary embolus.HIGH RISK: Target INR is 2.5-3.5 for patients with mechanical heart valves.[id number] 15:23:00 Test Item Value Reference Range Interpretation Comments PARTIAL THROMBOPLASTIN TIME 52.7 seconds 22.5-36.0 H (BEAKER) (test code = 760) [facility], [id number] 14:38:00 Test Item Value Reference Range Interpretation Comments ABO Grouping (test O Anti-A 0, Anti-B 0, A1 4+, code = 2588) B 4+, Anti D 4+ . Typing as O positive due to multiple transfusions of O positive RBC due to O ne g RBC shortage. Rh Factor (test code = NEG 2589) [facility], [id number] 14:38:00 Test Item Value Reference Range Interpretation Comments ABO Grouping (test O Anti-A 0, Anti-B 0, A1 4+, code = 2588) B 4+, Anti D 4+ . Typing as O positive due to multiple transfusions of O positive RBC due to O ne g RBC shortage. Rh Factor (test code = NEG 2589) [facility] CenterABORH, [id number] 14:38:00 Test Item Value Reference Range Interpretation Comments ABO Grouping (test O Anti-A 0, Anti-B 0, A1 4+, code = 2588) B 4+, Anti D 4+ . Typing as O positive due to multiple transfusions of O positive RBC due to O ne g RBC shortage. Rh Factor (test code = NEG 2589) [facility] CenterType and screen, [id number] 14:32:00 Test Item Value Reference Range Interpretation Comments Ab Scrn (test code = 890-4) NEGATIVE [facility] CenterType and screen, [id number] 14:32:00 Test Item Value Reference Range Interpretation Comments Ab Scrn (test code = 890-4) NEGATIVE [facility] CenterType and screen, [id number] 14:32:00 Test Item Value Reference Range Interpretation Comments Ab Scrn (test code = 890-4) NEGATIVE [facility] CenterPOCT-GLUCOSE [id number] 14:30:00 Test Item Value Reference Range Interpretation Comments POC-GLUCOSE METER 105 mg/dL 70-110 : TESTED A T [facility] 6720 (BEAKER) (test code = [place] [place], 1538) [address]: Quality Control Associate/Techni won ID = [id number] for RONAL PEREZ CT, BRAIN, WITHOUT [id number] 10:14:00Unlisted Reason for Exam - Click Yes and Enter Reason Below->No [facility] : 1975 Sex: [...] Signed: Celso Fernandes Verified Date/Time: 01/29/2021 10:07:24 /[id number] 09:36:00 Test Item Value Reference Range Interpretation [...] patients with mechanical heart valves.Red blood cell [id number] 09:29:00 Test Item Value Reference Range Interpretation Comments RBC (test code = 2.37 See_Comment L [Automated 789-8) message] The system which generated this result transmit ari reference range : 4.63 - 6.08 M/ L. The reference range was not u sed to interpret th is result as normal/abnormal . CARLEY (test code = CARLEY) Quality Control Associate ID - [id number] ID - [id number] Lab Interpretation Abnormal (test code = 42929-9) [facility] CenterRed blood cell [id number] 09:29:00 Test Item Value Reference Range Interpretation Comments RBC (test code = 2.37 See_Comment L [Automated 789-8) message] The system which generated this result transmit ari reference range : 4.63 - 6.08 M/ L. The reference range was not u sed to interpret th is result as normal/abnormal . CARLEY (test code = CARLEY) Quality Control Associate ID - [id number] ID - [id number] Lab Interpretation Abnormal (test code = 86198-5) [facility] CenterRed blood cell [id number] 09:29:00 Test Item Value Reference Range Interpretation Comments RBC (test code = 2.37 See_Comment L [Automated 789-8) message] The system which generated this result transmit ari reference range : 4.63 - 6.08 M/ L. The reference range was not u sed to interpret th is result as normal/abnormal . CARLEY (test code = CARLEY) Quality Control Associate ID - [id number] ID - [id number] Lab Interpretation Abnormal (test code = 74318-0) [facility] CenterRED BLOOD CELL [id number] 09:29:00 Test Item Value Reference Range Interpretation Comments RED BLOOD CELL COUNT (BEAKER) (test 2.37 M/ L 4.63-6.08 L code = 761) Quality Control Associate ID - [id number] ID - [id number] [id number] 08:25:00 Test Item Value Reference Range Interpretation Comments Digoxin Lvl (test code = 1.06 ng/mL 0.8-2 14449-5) CARLEY (test code = CARLEY) Quality Control Associate ID - SIMA W Lab Interpretation (test Normal code = 88808-6) [facility] CenterDigoxin [id number] 08:25:00 Test Item Value Reference Range Interpretation Comments Digoxin Lvl (test code = 1.06 ng/mL 0.8-2 88498-2) CARLEY (test code = CARLEY) Quality Control Associate ID - SIMA W Lab Interpretation (test Normal code = 86965-8) [facility] CenterDigoxin [id number] 08:25:00 Test Item Value Reference Range Interpretation Comments Digoxin Lvl (test code = 1.06 ng/mL 0.8-2 03038-8) CARLEY (test code = CARLEY) Quality Control Associate ID - SIMA W Lab Interpretation (test Normal code = 07897-7) [facility] CenterDIGOXIN [id number] 08:25:00 Test Item Value Reference Range Interpretation Comments DIGOXIN LEVEL (BEAKER) (test code 1.06 ng/mL 0.80-2.00 = 669) Quality Control Associate ID - SIMA MIDDLETONOCT-GLUCOSE [id number] 07:31:00 Test Item Value Reference Range Interpretation Comments POC-GLUCOSE METER 97 mg/dL 70-110 : TESTED A T [facility] 6720 ([facility]) (test code = NORM [place], 1538) [address]: Quality Control Associate/Techni won ID = [id number] for RONAL BROCK [id number] 07:26:00 Test Item Value Reference Range Interpretation Comments PARTIAL THROMBOPLASTIN TIME 35.6 seconds 22.5-36.0 ([facility]) (test code = 760) CBC W/PLT COUNT & AUTO [id number] 07:23:00 Test Item Value Reference Range Interpretation [...] (BEAKER) (test code = 2801) Hepatic function [id number] 07:21:00 Test Item Value Reference Range Interpretation Comments Protein, Total (test 5.6 See_Comment L [Autom ated code = 2885-2) message] The system which generated this result transmit ari reference range : 6.0 - 8.3 gm/dL . The reference range was not u sed to interpret th is result as normal/abnormal . Albumin (test code = 2.3 g/dL 3.5-5 L 99688-4) Total Bilirubin (test 0.6 mg/dL 0.2-1.2 code = 1974-2) Bilirubin, Direct 0.5 mg/dL 0.1-0.5 (test code = 1967-7) Alkaline Phosphatase 134 U/L 40-150 (test code = 6768-6) AST (test code = 39 U/L 5-34 H 1920-8) ALT (test code = 125 U/L 6-55 H 1742-6) CARLEY (test code = CARLEY) Quality Control Associate ID - KENNETH Leon Lab Interpretation Abnormal (test code = 58590-0) [facility] CenterHepatic function [id number] 07:21:00 Test Item Value Reference Range Interpretation Comments Protein, Total (test 5.6 See_Comment L [Autom ated code = 2885-2) message] The system which generated this result transmit ari reference range : 6.0 - 8.3 gm/dL . The reference range was not u sed to interpret th is result as normal/abnormal . Albumin (test code = 2.3 g/dL 3.5-5 L 26800-5) Total Bilirubin (test 0.6 mg/dL 0.2-1.2 code = 1974-2) Bilirubin, Direct 0.5 mg/dL 0.1-0.5 (test code = 1967-7) Alkaline Phosphatase 134 U/L 40-150 (test code = 6768-6) AST (test code = 39 U/L 5-34 H 1920-8) ALT (test code = 125 U/L 6-55 H 1742-6) CARLEY (test code = CARLEY) Quality Control Associate ID - KENNETH W Lab Interpretation Abnormal (test code = 74756-2) [facility] CenterHepatic function [id number] 07:21:00 Test Item Value Reference Range Interpretation Comments Protein, Total (test 5.6 See_Comment L [Autom ated code = 2885-2) message] The system which generated this result transmit ari reference range : 6.0 - 8.3 gm/dL . The reference range was not u sed to interpret th is result as normal/abnormal . Albumin (test code = 2.3 g/dL 3.5-5 L 27213-9) Total Bilirubin (test 0.6 mg/dL 0.2-1.2 code = 1975-2) Bilirubin, Direct 0.5 mg/dL 0.1-0.5 (test code = 1968-7) Alkaline Phosphatase 134 U/L 40-150 (test code = 6768-6) AST (test code = 39 U/L 5-34 H 1920-8) ALT (test code = 125 U/L 6-55 H 1742-6) CARLEY (test code = CARLEY) Quality Control Associate ID Doretha COOPER W Lab Interpretation Abnormal (test code = 32102-4) [facility] METABOLIC [id number] 07:21:00 Test Item Value Reference Range Interpretation [...] S NOT APPLICABLE FOR DIALYSIS PATIEN TS. Quality Control Associate ID - KENNETH [id number] 07:21:00 Test Item Value Reference Range Interpretation Comments MAGNESIUM (BEAKER) (test code = 2.0 mg/dL 1.6-2.6 627) Quality Control Associate ID Doretha COOPER [id number] 07:21:00 Test Item Value Reference Range Interpretation Comments PHOSPHORUS (BEAKER) (test code = 3.7 mg/dL 2.3-4.7 604) Quality Control Associate ID - KENNETH WHEPATIC FUNCTION [id number] 07:21:00 Test Item Value Reference Range Interpretation [...] code = 125 U/L 6-55 H 347) Quality Control Associate ID Doretha COOPER WLACTIC ACID, [id number] 07:18:00 Test Item Value Reference Range Interpretation Comments LACTATE BLOOD 0.7 mmol/L 0.5-2.2 Specimen sligh tly ARTERIAL (2) (BEAKER) hemoly zed (test code = 2874) Quality Control Associate ID Doretha COOPER WBLOOD GAS, [id number] 06:44:00 Test Item Value Reference Range Interpretation [...] (BEAKER) (test code = 1819) 70.0 CALCIUM, [id number] 06:42:00 Test Item Value Reference Range Interpretation Comments CALCIUM IONIZED (BEAKER) (test 1.13 mmol/L 1.12-1.27 code = 698) PH, BLOOD (BEAKER) (test code = 7.50 1810) OXYGEN SATURATION, [id number] 06:41:00 Test Item Value Reference Range Interpretation Comments O2 SATURATION (MEASURED) (BEAKER) 74.5 % (test code = 1455) RAD, CHEST, 1 VIEW, NON [id number] 04:31:00Reason for exam:- >intubatedShould this be performed at the bedside?->Yes [facility] 1975 Sex: [...] Warren MDReport Verified Date/Time: 01/29/2021 04:31:34 POCT-GLUCOSE [id number] 00:55:00 Test Item Value Reference Range Interpretation Comments POC-GLUCOSE METER 116 mg/dL 70-110 H : TESTED A T [facility] 6720 (BEAKER) (test code = NORM R [facility], 1538) 47268: Quality Control Associate/Techni won ID = [id number] for VINOD CHAUDHARY [id number] 18:45:00 Test Item Value Reference Range Interpretation Comments Potassium (test code = 3.9 meq/L 3.5-5.1 2823-3) CARLEY (test code = CARLEY) Quality Control Associate ID - DB Lab Interpretation (test Normal code = 44606-1) [facility] 18:45:00 Test Item Value Reference Range Interpretation Comments Sodium (test code = 2951-2) 137 meq/L 136-145 CARLEY (test code = CARLEY) Quality Control Associate ID - DB Lab Interpretation (test Normal code = 72304-7) [facility] CenterPotassium2021-08-21 18:45:00 Test Item Value Reference Range Interpretation Comments Potassium (test code = 3.9 meq/L 3.5-5.1 2823-3) CARLEY (test code = CARLEY) Quality Control Associate ID - DB Lab Interpretation (test Normal code = 91779-9) [facility]odium[facility] 18:45:00 Test Item Value Reference Range Interpretation Comments Sodium (test code = 2951-2) 137 meq/L 136-145 CARLEY (test code = CARLEY) Quality Control Associate ID - DB Lab Interpretation (test Normal code = 71598-7) [facility] CenterPotassium2021-08-21 18:45:00 Test Item Value Reference Range Interpretation Comments Potassium (test code = 3.9 meq/L 3.5-5.1 2823-3) CARLEY (test code = CARLEY) Quality Control Associate ID - DB Lab Interpretation (test Normal code = 51244-6) [facility]odium[facility] 18:45:00 Test Item Value Reference Range Interpretation Comments Sodium (test code = 2951-2) 137 meq/L 136-145 CARLEY (test code = CARLEY) Quality Control Associate ID - DB Lab Interpretation (test Normal code = 97420-9) [facility] CenterMAGNESIUM2021-08-21 18:45:00 Test Item Value Reference Range Interpretation Comments MAGNESIUM (BEAKER) (test code = 1.9 mg/dL 1.6-2.6 627) Quality Control Associate ID - [id number] 18:45:00 Test Item Value Reference Range Interpretation Comments PHOSPHORUS (BEAKER) (test code = 2.7 mg/dL 2.3-4.7 604) Quality Control Associate ID - [id number] 18:45:00 Test Item Value Reference Range Interpretation Comments POTASSIUM (BEAKER) (test code = 3.9 meq/L 3.5-5.1 379) Quality Control Associate ID - [id number] 18:45:00 Test Item Value Reference Range Interpretation Comments SODIUM (BEAKER) (test code = 381) 137 meq/L 136-145 Quality Control Associate ID - DBRAD, CHEST, 1 VIEW, NON [id number] 18:36:00Reason for exam:- >Hypoxia, eval chest tubeShould this be performed at the bedside?->Yes [facility] 1975 Sex: [...] MDReport Verified Date/Time: 01/28/2021 18:36:09 Reading Location: [facility] C013Y [facility] Reading Room POCT-GLUCOSE [id number] 18:29:00 Test Item Value Reference Range Interpretation Comments POC-GLUCOSE METER 91 mg/dL 70-110 : TESTED A T [facility] 6720 (BEAKER) (test code = NORM [place], 1538) [address]: Quality Control Associate/Techni won ID = [id number] for RONAL BROCK BLOOD GAS, [id number] 18:20:00 Test Item Value Reference Range Interpretation [...] (BEAKER) (test code = 1819) 100.0 HEMODIALYSIS [id number] 12:55:00Kimmy Mitchell RN 01/28/2021 12:55 PMLab Results [...] Report given to primary RN. JOSE Talbot [facility] [id number] 12:55:00Kimmy Mitchell RN 01/28/2021 12:55 PMLab Results [...] Report given to primary RN. JOSE [facility]bot [facility] [id number] 12:55:00Kimmy Mitchell RN 01/28/2021 12:55 PMLab Results [...] effect. Report given to primary RN. Kimmy Mitcehll RNCHI [facility]stPOCT-GLUCOSE [id number] 11:56:00 Test Item Value Reference Range Interpretation Comments POC-GLUCOSE METER 97 mg/dL 70-110 : TESTED A T [facility] 6720 (BEAKER) (test code = NORM [place], 1538) 487[address]: Quality Control Associate/Techni won ID = [id number] for RONAL BROCK PROTHROMBIN TIME/[id number] 09:33:00 Test Item Value Reference Range Interpretation Comments PROTIME (BEAKER) 19.1 seconds 11.9-14.2 H (test code = 759) INR (BEAKER) (test 1.63 See_Comment [Automat ed message] code = 370) The system [employer] generated this result transmitted ref erence range: <=5.90. The reference range was not used to int erpret this result as normal/abnormal . RECOMMENDED COUMADIN/WARFARIN INR THERAPY RANGESSTANDARD DOSE: 2.0 - 3.0 Includes: PROPHYLAXIS forvenous thrombosis, systemic embolization; TREATMENT for venous thrombosis and/or pulmonary embolus.HIGH RISK: Target INR is 2.5-3.5 for patients with mechanical heart valves.BASIC METABOLIC [id number] 09:07:00 Test Item Value Reference Range Interpretation [...] S NOT APPLICABLE FOR DIALYSIS PATIEN TS. Quality Control Associate ID - VALDEZ [id number] 09:07:00 Test Item Value Reference Range Interpretation Comments MAGNESIUM (BEAKER) (test code = 2.2 mg/dL 1.6-2.6 627) Quality Control Associate ID - VALDEZ [id number] 09:07:00 Test Item Value Reference Range Interpretation Comments PHOSPHORUS (BEAKER) (test code = 3.3 mg/dL 2.3-4.7 604) Quality Control Associate ID - VALDEZ MPROTHROMBIN TIME/[id number] 07:41:00 Test Item Value Reference Range Interpretation Comments PROTIME (BEAKER) 18.6 seconds 11.9-14.2 H (test code = 759) INR (BEAKER) (test 1.58 See_Comment [Automat ed message] code = 370) The system [employer] generated this result transmitted ref erence range: <=5.90. The reference range was not used to int erpret this result as normal/abnormal . RECOMMENDED COUMADIN/WARFARIN INR THERAPY RANGESSTANDARD DOSE: 2.0 - 3.0 Includes: PROPHYLAXIS forvenous thrombosis, systemic embolization; TREATMENT for venous thrombosis and/or pulmonary embolus.HIGH RISK: Target INR is 2.5-3.5 for patients with mechanical heart valves.HEPATIC FUNCTION [id number] 06:56:00 Test Item Value Reference Range Interpretation [...] code = 184 U/L 6-55 H 347) Quality Control Associate ID - VALDEZ [id number] 06:56:00 Test Item Value Reference Range Interpretation Comments MAGNESIUM (BEAKER) (test code = 2.2 mg/dL 1.6-2.6 627) Quality Control Associate ID - VALDEZ [id number] 06:56:00 Test Item Value Reference Range Interpretation Comments PHOSPHORUS (BEAKER) (test code = 3.1 mg/dL 2.3-4.7 604) Quality Control Associate ID - VALDEZ [id number] 06:56:00 Test Item Value Reference Range Interpretation Comments POTASSIUM (BEAKER) (test code = 4.5 meq/L 3.5-5.1 379) Quality Control Associate ID - VALDEZ MRAD, CHEST, 1 VIEW, NON [id number] 06:36:00Reason for exam:->intubatedShould this be performed at the bedside?->Yes [facility] : 1975 Sex: [...] (BEAKER) (test code = 2801) LACTIC ACID, [id number] 06:30:00 Test Item Value Reference Range Interpretation Comments LACTATE BLOOD ARTERIAL (2) 0.9 mmol/L 0.5-2.2 (BEAKER) (test code = 2874) Quality Control Associate ID - VALDEZ [id number] 06:29:00 Test Item Value Reference Range Interpretation Comments PARTIAL THROMBOPLASTIN TIME 37.9 seconds 22.5-36.0 H (BEAKER) (test code = 760) POCT-GLUCOSE [id number] 06:25:00 Test Item Value Reference Range Interpretation Comments POC-GLUCOSE METER 94 mg/dL 70-110 : TESTED A T [facility] 6720 (BEAKER) (test code = NORM [place], 1538) 1964[address]: Quality Control Associate/Techni won ID = [id number] for Asa longManuelito OXYGEN SATURATION, [id number] 05:45:00 Test Item Value Reference Range Interpretation Comments O2 SATURATION (MEASURED) (BEAKER) 84.7 % (test code = 1455) BLOOD GAS, [id number] 05:43:00 Test Item Value Reference Range Interpretation [...] (BEAKER) (test code = 1819) 44.0 CALCIUM, [id number] 05:42:00 Test Item Value Reference Range Interpretation Comments CALCIUM IONIZED (BEAKER) (test 1.19 mmol/L 1.12-1.27 code = 698) PH, BLOOD (BEAKER) (test code = 7.47 1810) POCT-GLUCOSE [id number] 00:02:00 Test Item Value Reference Range Interpretation Comments POC-GLUCOSE METER 97 mg/dL 70-110 : TESTED A T [facility] 6720 (BEAKER) (test code = NORM [place], 1538) 56155: Quality Control Associate/Techni won ID = [id number] for AsaManuelito curiel RAD, CHEST, 1 VIEW, NON [id number] 21:24:00Reason for exam:- >tachypnea/assess left side hemothoraxShould this be performed at the bedside?->[facility] : 1975 Sex: [...] Castro Verified Date/Time: 01/27/2021 21:24:57 Reading [facility] LACTIC ACID, [id number] 21:23:00 Test Item Value Reference Range Interpretation Comments LACTATE BLOOD ARTERIAL (2) 1.1 mmol/L 0.5-2.2 (BEAKER) (test code = 2874) Quality Control Associate ID - [place] [id number] 21:12:00 Test Item Value Reference Range Interpretation Comments POTASSIUM (BEAKER) (test code = 4.5 meq/L 3.5-5.1 379) Quality Control Associate ID - CDPCBC (Hemogram only)2021-01-27 21:05:00 Test Item Value Reference Range Interpretation Comments WBC (test code = 6690-2) 12.5 See_Comment H [A utomated message] The system [employer] generated this result transmitted ref erence range: 3.5 - 10 .5 K/L. The refe rence range was not u sed to interpret this result as normal/abnor mal. RBC (test code = 789-8) 2.71 See_Comment L [Au tomated message] The system [employer] generated this result transmitted ref erence range: 4.63 - 6 .08 M/L. The refe rence range was not u sed to interpret this result as normal/abnor mal. MCHC (test code = 786-4) 32.4 See_Comment L [A utomated message] The system [employer] generated this result transmitted ref erence range: [...] L [Aut omated message] 777-3) The system [employer] generated this result transmitted ref erence range: 150 - 45 0 K/CU MM. The referen ce range was not u sed to interpret this result as normal/abnor mal. MPV (test code = 11.2 fL 9.4-12.4 75163-0) nRBC (test code = 413) 0 See_Comment [Aut omated message] The system [employer] generated this result transmitted ref erence range: 0 - 0 /1 00 WBC. The refere nce range was not u sed to interpret this result as normal/abnor mal. Lab Interpretation (test Abnormal code = 89269-9) [facility] (Hemogram only)2021-01-27 21:05:00 Test Item Value Reference Range Interpretation Comments WBC (test code = 6690-2) 12.5 See_Comment H [A utomated message] The system [employer] generated this result transmitted ref erence range: 3.5 - 10 .5 K/L. The refe rence range was not u sed to interpret this result as normal/abnor mal. RBC (test code = 789-8) 2.71 See_Comment L [Au tomated message] The system [employer] generated this result transmitted ref erence range: 4.63 - 6 .08 M/L. The refe rence range was not u sed to interpret this result as normal/abnor mal. MCHC (test code = 786-4) 32.4 See_Comment L [A utomated message] The system [employer] generated this result transmitted ref erence range: [...] L [Aut omated message] 777-3) The system [employer] generated this result transmitted ref erence range: 150 - 45 0 K/CU MM. The referen ce range was not u sed to interpret this result as normal/abnor mal. MPV (test code = 11.2 fL 9.4-12.4 66888-5) nRBC (test code = 413) 0 See_Comment [Aut omated message] The system [employer] generated this result transmitted ref erence range: 0 - 0 /1 00 WBC. The refere nce range was not u sed to interpret this result as normal/abnor mal. Lab Interpretation (test Abnormal code = 76046-3) [facility] (Hemogram only)2021-01-27 21:05:00 Test Item Value Reference Range Interpretation Comments WBC (test code = 6690-2) 12.5 See_Comment H [A utomated message] The system [employer] generated this result transmitted ref erence range: 3.5 - 10 .5 K/L. The refe rence range was not u sed to interpret this result as normal/abnor mal. RBC (test code = 789-8) 2.71 See_Comment L [Au tomated message] The system [employer] generated this result transmitted ref erence range: 4.63 - 6 .08 M/L. The refe rence range was not u sed to interpret this result as normal/abnor mal. MCHC (test code = 786-4) 32.4 See_Comment L [A utomated message] The system [employer] generated this result transmitted ref erence range: [...] L [Aut omated message] 777-3) The system [employer] generated this result transmitted ref erence range: 150 - 45 0 K/CU MM. The referen ce range was not u sed to interpret this result as normal/abnor mal. MPV (test code = 11.2 fL 9.4-12.4 24556-5) nRBC (test code = 413) 0 See_Comment [Aut omated message] The system [employer] generated this result transmitted ref erence range: 0 - 0 /1 00 WBC. The refere nce range was not u sed to interpret this result as normal/abnor mal. Lab Interpretation (test Abnormal code = 57869-8) [facility] (HEMOGRAM ONLY)2021-01-27 21:05:00 Test Item Value [...] (BEAKER) (test code = 413) BLOOD GAS, [id number] 20:50:00 Test Item Value Reference Range Interpretation [...] FIO2 (BEAKER) (test code = 1819) 36.0 [id number] 18:51:00 Test Item Value Reference Range Interpretation Comments MAGNESIUM (BEAKER) (test code = 2.2 mg/dL 1.6-2.6 627) Quality Control Associate ID - [id number] 18:51:00 Test Item Value Reference Range Interpretation Comments PHOSPHORUS (BEAKER) (test code = 3.2 mg/dL 2.3-4.7 604) Quality Control Associate ID - [id number] 18:51:00 Test Item Value Reference Range Interpretation Comments POTASSIUM (BEAKER) (test code = 4.3 meq/L 3.5-5.1 379) Quality Control Associate ID - [id number] 18:51:00 Test Item Value Reference Range Interpretation Comments SODIUM (BEAKER) (test code = 381) 135 meq/L 136-145 L Quality Control Associate ID - [id number] 12:12:00 Test Item Value Reference Range Interpretation Comments MAGNESIUM (BEAKER) (test code = 2.1 mg/dL 1.6-2.6 627) Quality Control Associate ID - GEMINI [id number] 12:12:00 Test Item Value Reference Range Interpretation Comments PHOSPHORUS (BEAKER) (test code = 2.9 mg/dL 2.3-4.7 604) Quality Control Associate ID - GEMINI [id number] 12:12:00 Test Item Value Reference Range Interpretation Comments POTASSIUM (BEAKER) (test code = 4.4 meq/L 3.5-5.1 379) Quality Control Associate ID - GEMINI FPOCT-GLUCOSE [id number] 11:53:00 Test Item Value Reference Range Interpretation Comments POC-GLUCOSE METER 91 mg/dL 70-110 : TESTED Elias Dominguez [facility] 6720 (TAMARA) (test code = NORM [place], 1538) [address]: Quality Control Associate/Techni won ID = [id number] for RONAL BROCK, CHEST, 1 VIEW, NON [id number] 07:51:00Reason for exam:- >intubatedShould this be performed at the bedside?->Yes [facility] 1975 Sex: [...] Browningepting Verified Date/Time: 01/27/2021 07:51:17 Reading Location: [facility] Diagnostic Imaging Reading Room - SLSWV F1 1129 BASIC METABOLIC [id number] 07:12:00 Test Item Value Reference Range Interpretation [...] S NOT APPLICABLE FOR DIALYSIS PATIEN TS. Quality Control Associate ID - GEMINI FPROTHROMBIN TIME/[id number] 07:09:00 Test Item Value Reference Range Interpretation Comments PROTIME (BEAKER) 17.1 seconds 11.9-14.2 H (test code = 759) INR (BEAKER) (test 1.42 See_Comment [Automat ed message] code = 370) The system [employer] generated this result transmitted ref erence range: <=5.90. The reference range was not used to int erpret this result as normal/abnormal . RECOMMENDED COUMADIN/WARFARIN INR THERAPY RANGESSTANDARD DOSE: 2.0 - 3.0 Includes: PROPHYLAXIS forvenous thrombosis, systemic embolization; TREATMENT for venous thrombosis and/or pulmonary embolus.HIGH RISK: Target INR is 2.5-3.5 for patients with mechanical heart valves.HEPATIC FUNCTION [id number] 04:21:00 Test Item Value Reference Range Interpretation [...] code = 248 U/L 6-55 H 347) Quality Control Associate ID - LINA [id number] 04:21:00 Test Item Value Reference Range Interpretation Comments MAGNESIUM (BEAKER) (test code = 2.1 mg/dL 1.6-2.6 627) Quality Control Associate ID - LINA [id number] 04:21:00 Test Item Value Reference Range Interpretation Comments PHOSPHORUS (BEAKER) (test code = 2.5 mg/dL 2.3-4.7 604) Quality Control Associate ID - LINA [id number] 04:21:00 Test Item Value Reference Range Interpretation Comments POTASSIUM (BEAKER) (test code = 4.0 meq/L 3.5-5.1 379) Quality Control Associate ID - LINA [id number] 04:14:00 Test Item Value Reference Range Interpretation Comments PARTIAL THROMBOPLASTIN TIME 35.4 seconds 22.5-36.0 (BEAKER) (test code = 760) LACTIC ACID, [id number] 04:05:00 Test Item Value Reference Range Interpretation Comments LACTATE BLOOD ARTERIAL (2) 0.9 mmol/L 0.5-2.2 (BEAKER) (test code = 2874) Quality Control Associate ID - LINA LCBC W/PLT COUNT & AUTO [id number] 03:58:00 Test Item Value Reference Range Interpretation [...] (BEAKER) (test code = 2801) BLOOD GAS, [id number] 03:52:00 Test Item Value Reference Range Interpretation [...] (test code = 1819) 100.0 OXYGEN SATURATION, [id number] 03:50:00 Test Item Value Reference Range Interpretation Comments O2 SATURATION (MEASURED) (BEAKER) 64.2 % (test code = 1455) CALCIUM, [id number] 03:50:00 Test Item Value Reference Range Interpretation Comments CALCIUM IONIZED (BEAKER) (test 1.15 mmol/L 1.12-1.27 code = 698) PH, BLOOD (BEAKER) (test code = 7.43 1810) Insert Arterial [id number] 23:51:37Jes Ramos NP 01/26/2021 11:56 PMInsert Arterial [...] to verify the correct patient, procedure, equipment, network and threat support specialist and site/side marked as required.Preparation:Patient was prepped and draped in the usual sterile fashion.Indications: multiple ABGs and hemodynamic monitoringLocation: left radialAnesthesia: local infiltration Anesthesia:Local Anesthetic: lidocaine 2% without epinephrine Sedation:Patient sedated: no Parish's test normal: yesNeedle gauge: 20Seldinger technique: Seldinger technique usedPost-procedure: line sutured and dressing appliedPost-procedure CMS: [facility] Arterial [id number] 23:51:37Jes Ramos NP 01/26/2021 11:56 PMInsert Arterial [...] to verify the correct patient, procedure, equipment, network and threat support specialist and site/side marked as required.Preparation:Patient was prepped and draped in the usual sterile fashion.Indications: multiple ABGs and hemodynamic monitoringLocation: left radialAnesthesia: local infiltration Anesthesia:Local Anesthetic: lidocaine 2% without epinephrine Sedation:Patient sedated: no Parish's test normal: yesNeedle gauge: 20Seldinger technique: Seldinger technique usedPost-procedure: line sutured and dressing appliedPost-procedure CMS: [facility] Arterial [id number] 23:51:37Jes Ramos NP 01/26/2021 11:56 PMInsert Arterial Line Date/Time: 01/26/2021 11:51 PMPerformed by: eJs Ramos NPAuthorized by: Jes Ramos NP Consent: [...] to verify the correct patient, procedure, equipment, network and threat support specialist and site/side marked as required.Preparation:Patient was prepped and draped in the usual sterile fashion.Indications: multiple ABGs and hemodynamic monitoringLocation: left radialAnesthesia: local infiltration Anesthesia:Local Anesthetic: lidocaine 2% without epinephrine Sedation:Patient sedated: no Parish's test normal: yesNeedle gauge: 20Seldinger technique: Seldinger technique usedPost-procedure: line sutured and dressing appliedPost-procedure [facility] [id number] 22:14:00 Test Item Value Reference Range Interpretation Comments POC-GLUCOSE METER 107 mg/dL 70-110 : TESTED A T [facility] 6720 (BEAKER) (test code = NORM [place], 1538) [address]: Quality Control Associate/Techni won ID = [id number] for DO September BASIC METABOLIC [id number] 21:01:00 Test Item Value Reference Range Interpretation [...] S NOT APPLICABLE FOR DIALYSIS PATIEN TS. Quality Control Associate ID - [id number] 21:01:00 Test Item Value Reference Range Interpretation Comments MAGNESIUM (BEAKER) (test code = 2.2 mg/dL 1.6-2.6 627) Quality Control Associate ID - [id number] 21:01:00 Test Item Value Reference Range Interpretation Comments PHOSPHORUS (BEAKER) (test code = 2.0 mg/dL 2.3-4.7 L 604) Quality Control Associate ID - BSCALCIUM, [id number] 20:38:00 Test Item Value Reference Range Interpretation Comments CALCIUM IONIZED (BEAKER) (test 1.24 mmol/L 1.12-1.27 code = 698) PH, BLOOD (BEAKER) (test code = 7.43 1810) [id number] 17:42:00 Test Item Value Reference Range Interpretation Comments POTASSIUM (BEAKER) (test code = 4.2 meq/L 3.5-5.1 379) Quality Control Associate ID - BSPOCT-GLUCOSE [id number] 17:02:00 Test Item Value Reference Range Interpretation Comments POC-GLUCOSE METER 105 mg/dL 70-110 : TESTED A T [facility] 6720 (BEAKER) (test code = [facility], 1538) [address]: Quality Control Associate/Techni won ID = [id number] for ABRAN PALOMINO [id number] 12:47:00 Test Item Value Reference Range Interpretation Comments POTASSIUM (BEAKER) (test code = 4.3 meq/L 3.5-5.1 379) Quality Control Associate ID - AMARISONPOCT-GLUCOSE [id number] 12:25:00 Test Item Value Reference Range Interpretation Comments POC-GLUCOSE METER 100 mg/dL 70-110 : TESTED A T [facility] 6720 (BEAKER) (test code = [facility], 1538) 48[address]: Quality Control Associate/Techni won ID = [id number] for ABRAN PALOMINO [id number] 08:42:00 Test Item Value Reference Range Interpretation Comments MAGNESIUM (BEAKER) (test code = 2.1 mg/dL 1.6-2.6 627) Quality Control Associate ID - [id number] 08:42:00 Test Item Value Reference Range Interpretation Comments PHOSPHORUS (BEAKER) (test code = 2.7 mg/dL 2.3-4.7 604) Quality Control Associate ID - [id number] 08:42:00 Test Item Value Reference Range Interpretation Comments POTASSIUM (BEAKER) (test code = 4.4 meq/L 3.5-5.1 379) Quality Control Associate ID - JOJOPrepare [id number] 08:26:00 Test Item Value Reference Range Interpretation Comments Unit ABO (test code = O Pos 7067250) UNIT NUMBER (test code = [id number] 934-0) Status (test code = RETURNED FROM ISSUE 15100819) Blood Bank Product (test RED BLOOD CELLS code = 2263) PRODUCT CODE (test code = U6837D06 933-2) CROSSMATCH (test code = COMPATIBLE 4) [facility] [id number] 08:26:00 Test Item Value Reference Range Interpretation Comments Unit ABO (test code = O Pos 5185758) UNIT NUMBER (test code = [id number] 934-0) Status (test code = RETURNED FROM ISSUE 15100819) Blood Bank Product (test RED BLOOD CELLS code = 2263) PRODUCT CODE (test code = H7638K95 933-2) CROSSMATCH (test code = COMPATIBLE 2264) [facility] [id number] 08:26:00 Test Item Value Reference Range Interpretation Comments Unit ABO (test code = O Pos 2109944) UNIT NUMBER (test code = [id number] 934-0) Status (test code = RETURNED FROM ISSUE 15100819) Blood Bank Product (test RED BLOOD CELLS code = 2263) PRODUCT CODE (test code = E9582A37 933-2) CROSSMATCH (test code = COMPATIBLE 2264) [facility] [id number] 08:26:00 Test Item Value Reference Range Interpretation Comments POC-GLUCOSE METER 103 mg/dL 70-110 : TESTED A T [facility] 6720 (BEAKER) (test code = N[place], 1538) [address]: Quality Control Associate/Techni won ID = [id number] for SYLWIA TIAN NCREZA CALCIUM, [id number] 07:15:00 Test Item Value Reference Range Interpretation Comments CALCIUM IONIZED (BEAKER) (test 1.19 mmol/L 1.12-1.27 code = 698) PH, BLOOD (BEAKER) (test code = 7.41 1810) BLOOD GAS, [id number] 06:40:00 Test Item Value Reference Range Interpretation [...] (BEAKER) (test code = 1819) 40.0 DIGOXIN [id number] 05:24:00 Test Item Value Reference Range Interpretation Comments DIGOXIN LEVEL (BEAKER) (test code 0.76 ng/mL 0.80-2.00 L = 669) Quality Control Associate ID - VALDEZ MOXYGEN SATURATION, [id number] 05:13:00 Test Item Value Reference Range Interpretation Comments O2 SATURATION (MEASURED) (BEAKER) 62.6 % (test code = 1455) BLOOD GAS, [id number] 05:11:00 Test Item Value Reference Range Interpretation [...] FIO2 (BEAKER) (test code = 1819) 40.0 [id number] 05:04:00 Test Item Value Reference Range Interpretation Comments PHOSPHORUS (BEAKER) (test code = 1.0 mg/dL 2.3-4.7 LL 604) Quality Control Associate ID - VALDEZ MBASIC METABOLIC [id number] 04:53:00 Test Item Value Reference Range Interpretation [...] S NOT APPLICABLE FOR DIALYSIS PATIEN TS. Quality Control Associate ID - VALDEZ [id number] 04:53:00 Test Item Value Reference Range Interpretation Comments MAGNESIUM (BEAKER) (test code = 2.3 mg/dL 1.6-2.6 627) Quality Control Associate ID - VALDEZ [id number] 04:44:00 Test Item Value Reference Range Interpretation Comments PARTIAL THROMBOPLASTIN TIME 35.3 seconds 22.5-36.0 (BEAKER) (test code = 760) PROTHROMBIN [id number] 04:43:00 Test Item Value Reference Range Interpretation Comments PROTIME (BEAKER) 16.6 seconds 11.9-14.2 H (test code = 759) INR (BEAKER) (test 1.36 See_Comment [Automat ed message] code = 370) The system [employer] generated this result transmitted ref erence range: [...] (BEAKER) (test code = 2801) LACTIC ACID, [id number] 04:38:00 Test Item Value Reference Range Interpretation Comments LACTATE BLOOD ARTERIAL (2) 1.5 mmol/L 0.5-2.2 (BEAKER) (test code = 2874) Quality Control Associate ID - VALDEZ MBLOOD GAS, [id number] 04:34:00 Test Item Value Reference Range Interpretation [...] 1819) 40.0 RAD, CHEST, 1 VIEW, NON [id number] 02:40:00Reason for exam:- >intubatedShould this be performed at the bedside?->Yes [facility] 1975 Sex: MFINAL REPORT RAD, CHEST, 1 VIEW, NON DEPT INDICATION: intubated TESFAYE RISON: Prior day's exam FINDINGS: Portable frontal view of the chest. IMPRESSION: Support Lines: No significant change. Lungs and pleura: Unchanged airspace and pleural opacities. No pneumothorax.Heart and mediastinum: Stable cardiomegaly. Additional findings: None. Signed: Abhay Melo Verified Date/Time: 01/26/2021 02:40:28 RAD, ABDOMEN/KUB, 1 VIEW [id number] 00:28:00Reason for exam:->Corpak [facility] : 1975 Sex: [...] 01/26/2021 00:28:31 XR abdomen / KUB 1 [id number] 00:28:00Interface, External Ris In - 01/26/2021 12:30 [...] Signed: Buck Warren Verified Date/Time: 01/26/2021 00:28:31 [facility] 1 [id number] 00:28:00Interface, External Ris In - 01/26/2021 12:30 [...] Signed: Buck Warren Verified Date/Time: 01/26/2021 00:28:31 [facility] / KUB 1 [id number] 00:28:00Interface, External Ris In - 01/26/2021 12:30 [...] Signed: Buck Warreneport Verified Date/Time: 01/26/2021 00:28:31 [facility] [id number] 22:11:00 Test Item Value Reference Range Interpretation Comments POC-GLUCOSE METER 97 mg/dL 70-110 : TESTED A T [facility] 6720 (BEAKER) (test code = [place], 1538) [address]: Quality Control Associate/Techni won ID = [id number] for MESERET ETTSeptember BASIC METABOLIC [id number] 20:58:00 Test Item Value Reference Range Interpretation [...] S NOT APPLICABLE FOR DIALYSIS PATIEN TS. Quality Control Associate ID - [id number] 20:58:00 Test Item Value Reference Range Interpretation Comments MAGNESIUM (BEAKER) (test code = 1.9 mg/dL 1.6-2.6 627) Quality Control Associate ID - CDPPOCT-GLUCOSE [id number] 18:18:00 Test Item Value Reference Range Interpretation Comments POC-GLUCOSE METER 103 mg/dL 70-110 : TESTED A T [facility] 6720 (BEAKER) (test code = N[place], 1538) 594[address]: Quality Control Associate/Techni won ID = [id number] for LEVY BARBOZA [id number] 17:35:00 Test Item Value Reference Range Interpretation Comments MAGNESIUM (BEAKER) (test code = 2.1 mg/dL 1.6-2.6 627) Quality Control Associate ID - [id number] 17:35:00 Test Item Value Reference Range Interpretation Comments PHOSPHORUS (BEAKER) (test code = 2.0 mg/dL 2.3-4.7 L 604) Quality Control Associate ID - [id number] 17:35:00 Test Item Value Reference Range Interpretation Comments POTASSIUM (BEAKER) (test code = 3.8 meq/L 3.5-5.1 379) Quality Control Associate ID - [id number] 17:35:00 Test Item Value Reference Range Interpretation Comments SODIUM (BEAKER) (test code = 381) 136 meq/L 136-145 Quality Control Associate ID - CDPBLOOD GAS, [id number] 16:13:00 Test Item Value Reference Range Interpretation [...] 1819) 40.0 CBC W/PLT COUNT & AUTO [id number] 14:29:00 Test Item Value Reference Range Interpretation [...] PERCENT (BEAKER) (test code = 2801) POCT-GLUCOSE [id number] 13:31:00 Test Item Value Reference Range Interpretation Comments POC-GLUCOSE METER 92 mg/dL 70-110 : TESTED A T [facility] 6720 (BEAKER) (test code = N[place], 1538) 09[address]: Quality Control Associate/Techni won ID = [id number] for LEVY MINER BASIC METABOLIC [id number] 12:31:00 Test Item Value Reference Range Interpretation [...] S NOT APPLICABLE FOR DIALYSIS PATIEN TS. Quality Control Associate ID - [id number] 12:31:00 Test Item Value Reference Range Interpretation Comments MAGNESIUM (BEAKER) (test code = 2.0 mg/dL 1.6-2.6 627) Quality Control Associate ID - [id number] 12:31:00 Test Item Value Reference Range Interpretation Comments PHOSPHORUS (BEAKER) (test code = 2.0 mg/dL 2.3-4.7 L 604) Quality Control Associate ID - EMERSONCALCIUM, [id number] 12:07:00 Test Item Value Reference Range Interpretation Comments CALCIUM IONIZED (BEAKER) (test 1.22 mmol/L 1.12-1.27 code = 698) PH, BLOOD (BEAKER) (test code = 7.50 1810) RAD, CHEST, 1 VIEW, NON [id number] 09:54:00Reason for exam:- >intubatedShould this be performed at the bedside?->Yes [facility] 1975 Sex: MFINAL REPORT CLINICAL HISTORY: intubated TECHNIQUE: [address] COMPARISON: 01/24/2021 IMPRESSION: The supporting lines and tubes are similar appearing. Bilateral airspace opacities and a left pleural effusion are grossly unchanged. The cardiomediastinal silhouette is magnified by technique with sternotomy wires. Signed: Melodie Zarateort Verified Date/Time: 01/25/2021 09:54:23 Reading Location: [facility] Radiology Reading Room POCT- GLUCOSE [id number] 08:19:00 Test Item Value Reference Range Interpretation Comments POC-GLUCOSE METER 106 mg/dL 70-110 : TESTED A T [facility] 6720 (BEAKER) (test code = ON[place], 1538) 38986: Quality Control Associate/Techni won ID = [id number] for LISA SWENSONYohan LEVY CALCIUM, [id number] 04:51:00 Test Item Value Reference Range Interpretation Comments CALCIUM IONIZED (BEAKER) (test 1.20 mmol/L 1.12-1.27 code = 698) PH, BLOOD (BEAKER) (test code = 7.44 1810) BLOOD GAS, [id number] 04:50:00 Test Item Value Reference Range Interpretation [...] (test code = 1819) 40.0 OXYGEN SATURATION, [id number] 04:48:00 Test Item Value Reference Range Interpretation Comments O2 SATURATION (MEASURED) (BEAKER) 96.3 % (test code = 1455) BASIC METABOLIC [id number] 04:39:00 Test Item Value Reference Range Interpretation [...] S NOT APPLICABLE FOR DIALYSIS PATIEN TS. Quality Control Associate ID - KENNETH [id number] 04:39:00 Test Item Value Reference Range Interpretation Comments MAGNESIUM (BEAKER) (test code = 2.0 mg/dL 1.6-2.6 627) Quality Control Associate ID - KENNETH [id number] 04:39:00 Test Item Value Reference Range Interpretation Comments PHOSPHORUS (BEAKER) (test code = 2.1 mg/dL 2.3-4.7 L 604) Quality Control Associate ID - KENNETH WLACTIC ACID, [id number] 04:30:00 Test Item Value Reference Range Interpretation Comments LACTATE BLOOD ARTERIAL (2) 0.7 mmol/L 0.5-2.2 (BEAKER) (test code = 2874) Quality Control Associate ID - LINA [id number] 04:26:00 Test Item Value Reference Range Interpretation Comments PARTIAL THROMBOPLASTIN TIME 35.4 seconds 22.5-36.0 (BEAKER) (test code = 760) PROTHROMBIN TIME/[id number] 04:25:00 Test Item Value Reference Range Interpretation Comments PROTIME (BEAKER) 16.3 seconds 11.9-14.2 H (test code = 759) INR (BEAKER) (test 1.34 See_Comment [Automat ed message] code = 370) The system [employer] generated this result transmitted ref erence range: [...] PERCENT (BEAKER) (test code = 2801) POCT-GLUCOSE [id number] 00:25:00 Test Item Value Reference Range Interpretation Comments POC-GLUCOSE METER 87 mg/dL 70-110 : TESTED A T [facility] 6720 (BEAKER) (test code = [place], 1538) 889[address]: Quality Control Associate/Techni won ID = [id number] for JAYLA DOWNEY Prepare [id number] 23:55:00 Test Item Value Reference Range Interpretation Comments Unit ABO (test code = 7509445) A Pos UNIT NUMBER (test code = [id number] 934-0) Status (test code = 7294416) TX_TIMEINCHART Blood Bank Product (test code FFP = 2263) PRODUCT CODE (test code = U0958N79 933-2) [facility] [id number] 23:55:00 Test Item Value Reference Range Interpretation Comments Unit ABO (test code = 7838385) O Neg UNIT NUMBER (test code = [id number] 934-0) Status (test code = 5534035) TX_TIMEINCHART Blood Bank Product (test code PLATELETS = 2263) PRODUCT CODE (test code = H6746W88 933-2) [facility] Leuko-Red [id number] 23:55:00 Test Item Value Reference Range Interpretation Comments Unit ABO (test code = 7570449) O Neg UNIT NUMBER (test code = [id number] 934-0) Status (test code = 5397546) TX_TIMEINCHART Blood Bank Product (test code PLATELETS = 2263) PRODUCT CODE (test code = V7213N61 933-2) [facility] [id number] 23:55:00 Test Item Value Reference Range Interpretation Comments Unit ABO (test code = 2371467) A Pos UNIT NUMBER (test code = [id number] 934-0) Status (test code = 5128576) TX_TIMEINCHART Blood Bank Product (test code FFP = 2263) PRODUCT CODE (test code = S5942B81 933-2) [facility] [id number] 23:55:00 Test Item Value Reference Range Interpretation Comments Unit ABO (test code = 0214316) O Neg UNIT NUMBER (test code = [id number] 934-0) Status (test code = 8871762) TX_TIMEINCHART Blood Bank Product (test code PLATELETS = 2263) PRODUCT CODE (test code = K6302P92 933-2) [facility] Leuko-Red [id number] 23:55:00 Test Item Value Reference Range Interpretation Comments Unit ABO (test code = 1758090) O Neg UNIT NUMBER (test code = [id number] 934-0) Status (test code = 3307334) TX_TIMEINCHART Blood Bank Product (test code PLATELETS = 2263) PRODUCT CODE (test code = F8394U83 933-2) [facility] [id number] 23:55:00 Test Item Value Reference Range Interpretation Comments Unit ABO (test code = 7062422) A Pos UNIT NUMBER (test code = [id number] 934-0) Status (test code = 3628722) TX_TIMEINCHART Blood Bank Product (test code FFP = 2263) PRODUCT CODE (test code = B2835F63 933-2) [facility] [id number] 23:55:00 Test Item Value Reference Range Interpretation Comments Unit ABO (test code = 2720013) O Neg UNIT NUMBER (test code = [id number] 934-0) Status (test code = 1454089) TX_TIMEINCHART Blood Bank Product (test code PLATELETS = 2263) PRODUCT CODE (test code = Q3444M31 933-2) [facility] Leuko-Red [id number] 23:55:00 Test Item Value Reference Range Interpretation Comments Unit ABO (test code = 5783507) O Neg UNIT NUMBER (test code = [id number] 934-0) Status (test code = 0006548) TX_TIMEINCHART Blood Bank Product (test code PLATELETS = 2263) PRODUCT CODE (test code = Z2971A03 933-2) [facility] [id number] 22:10:00 Test Item Value Reference Range Interpretation Comments SODIUM (BEAKER) (test code = 381) 134 meq/L 136-145 L GLUCOSE-STAT [id number] 22:10:00 Test Item Value Reference Range Interpretation Comments GLUCOSE RANDOM (BEAKER) (test code 115 mg/dL 70-110 H = 652) HGB/HCT (H&H) - STAT [id number] 22:10:00 Test Item Value Reference Range Interpretation Comments HEMOGLOBIN (BEAKER) (test code = 7.6 GM/DL 13.0-16.8 L 410) HEMATOCRIT (BEAKER) (test code = 22.0 % 40.0-50.0 L 411) BLOOD GAS, [id number] 22:10:00 Test Item Value Reference Range Interpretation [...] (BEAKER) (test code = 1819) 40.0 POTASSIUM-STAT [id number] 22:07:00 Test Item Value Reference Range Interpretation Comments POTASSIUM (BEAKER) (test code = 3.8 meq/L 3.6-5.5 379) BASIC METABOLIC [id number] 18:50:00 Test Item Value Reference Range Interpretation [...] S NOT APPLICABLE FOR DIALYSIS PATIEN TS. Quality Control Associate ID - [id number] 18:50:00 Test Item Value Reference Range Interpretation Comments MAGNESIUM (BEAKER) (test code = 2.2 mg/dL 1.6-2.6 627) Quality Control Associate ID - [id number] 18:50:00 Test Item Value Reference Range Interpretation Comments PHOSPHORUS (BEAKER) (test code = 3.1 mg/dL 2.3-4.7 604) Quality Control Associate ID - CDPPOCT-GLUCOSE [id number] 13:09:00 Test Item Value Reference Range Interpretation Comments POC-GLUCOSE METER 101 mg/dL 70-110 : TESTED A T [facility] 6720 (BEAKER) (test code = [place], 1538) 15317: Quality Control Associate/Techni won ID = [id number] for KISHORE VELASQUEZ CBC W/PLT COUNT & AUTO [id number] 12:45:00 Test Item Value Reference Range Interpretation [...] H PERCENT (BEAKER) (test code = 2801) [id number] 12:38:00 Test Item Value Reference Range Interpretation Comments MAGNESIUM (BEAKER) (test code = 2.0 mg/dL 1.6-2.6 627) Quality Control Associate ID - LINA [id number] 12:38:00 Test Item Value Reference Range Interpretation Comments PHOSPHORUS (BEAKER) (test code = 3.5 mg/dL 2.3-4.7 604) Quality Control Associate ID - LINA [id number] 12:38:00 Test Item Value Reference Range Interpretation Comments POTASSIUM (BEAKER) (test code = 4.4 meq/L 3.5-5.1 379) Quality Control Associate ID - LINA LHEPATIC FUNCTION [id number] 10:44:00 Test Item Value Reference Range Interpretation [...] code = 427 U/L 6-55 H 347) Quality Control Associate ID - LINA LBLOOD GAS, [id number] 10:40:00 Test Item Value Reference Range Interpretation [...] 1819) 40.0 RAD, CHEST, 1 VIEW, NON [id number] 08:49:00Reason for exam:- >intubatedShould this be performed at the bedside?->Yes [facility] 1975 Sex: MFINAL REPORT CLINICAL HISTORY: intubated TECHNIQUE: 1 view of the [address] COMPARISON: 01/23/2021 IMPRESSION: The supporting lines and tubes are similar appearing. Bilateral airspace opacities are similar. A small pleural effusions unchanged. The cardiomediastinal silhouette is magnified by technique with sternotomy wires. Signed: Melodie Zarate MDReport Verified Date/Time: 01/24/2021 08:49:07 Reading Location: [facility] Radiology Reading Room BASIC METABOLIC [id number] 03:54:00 Test Item Value Reference Range Interpretation [...] S NOT APPLICABLE FOR DIALYSIS PATIEN TS. Quality Control Associate ID - VALDEZ [id number] 03:54:00 Test Item Value Reference Range Interpretation Comments MAGNESIUM (BEAKER) (test code = 2.2 mg/dL 1.6-2.6 627) Quality Control Associate ID - VALDEZ [id number] 03:54:00 Test Item Value Reference Range Interpretation Comments PHOSPHORUS (BEAKER) (test code = 2.8 mg/dL 2.3-4.7 604) Quality Control Associate ID - VALDEZ [id number] 03:49:00 Test Item Value Reference Range Interpretation Comments PARTIAL THROMBOPLASTIN TIME 36.8 seconds 22.5-36.0 H (BEAKER) (test code = 760) PROTHROMBIN TIME/[id number] 03:48:00 Test Item Value Reference Range Interpretation Comments PROTIME (BEAKER) 18.6 seconds 11.9-14.2 H (test code = 759) INR (BEAKER) (test 1.57 See_Comment [Automat ed message] code = 370) The system [employer] generated this result transmitted ref erence range: [...] (BEAKER) (test code = 2801) LACTIC ACID, [id number] 03:37:00 Test Item Value Reference Range Interpretation Comments LACTATE BLOOD ARTERIAL (2) 1.4 mmol/L 0.5-2.2 (BEAKER) (test code = 2874) Quality Control Associate ID - VALDEZ MBLOOD GAS, [id number] 03:26:00 Test Item Value Reference Range Interpretation [...] (BEAKER) (test code = 1819) 40.0 CALCIUM, [id number] 03:24:00 Test Item Value Reference Range Interpretation Comments CALCIUM IONIZED (BEAKER) (test 1.20 mmol/L 1.12-1.27 code = 698) PH, BLOOD (BEAKER) (test code = 7.48 1810) OXYGEN SATURATION, [id number] 03:23:00 Test Item Value Reference Range Interpretation Comments O2 SATURATION (MEASURED) (BEAKER) 64.1 % (test code = 1455) CBC W/PLT COUNT & AUTO [id number] 01:33:00 Test Item Value Reference Range Interpretation [...] (BEAKER) (test code = 2801) LACTIC ACID, [id number] 00:48:00 Test Item Value Reference Range Interpretation Comments LACTATE BLOOD ARTERIAL (2) 1.4 mmol/L 0.5-2.2 (BEAKER) (test code = 2874) Quality Control Associate ID - LINA LBLOOD GAS, [id number] 00:37:00 Test Item Value Reference Range Interpretation [...] (BEAKER) (test code = 1819) 40.0 POCT-GLUCOSE [id number] 23:22:00 Test Item Value Reference Range Interpretation Comments POC-GLUCOSE METER 102 mg/dL 70-110 : TESTED A T [facility] 6720 (BEAKER) (test code = [place], 1538) 49910: Quality Control Associate/Techni won ID = [id number] for ARI AMYER [id number] 22:00:00 Test Item Value Reference Range Interpretation Comments MAGNESIUM (BEAKER) 2.1 mg/dL 1.6-2.6 Specimen slightly (test code = 627) hemolyzed Quality Control Associate ID - [id number] 22:00:00 Test Item Value Reference Range Interpretation Comments PHOSPHORUS (BEAKER) 3.0 mg/dL 2.3-4.7 Specimen slightly (test code = 604) hemolyzed Quality Control Associate ID - DBBASIC METABOLIC [id number] 22:00:00 Test Item Value Reference Range Interpretation [...] S NOT APPLICABLE FOR DIALYSIS PATIEN TS. Quality Control Associate ID - DBCBC W/PLT COUNT & AUTO [id number] 21:49:00 Test Item Value Reference Range Interpretation [...] H PERCENT (BEAKER) (test code = 2801) [id number] 21:45:00 Test Item Value Reference Range Interpretation Comments Fibrinogen (test code = 3255-7) 253 mg/dl 225-434 Lab Interpretation (test code = Normal 16864-5) [facility] 21:45:00 Test Item Value Reference Range Interpretation Comments Fibrinogen (test code = 3255-7) 253 mg/dl 225-434 Lab Interpretation (test code = Normal 78958-3) [facility]2021-[facility] 21:45:00 Test Item Value Reference Range Interpretation Comments Fibrinogen (test code = 3255-7) 253 mg/dl 225-434 Lab Interpretation (test code = Normal 34838-5) [facility]EN2021-08-16 21:45:00 Test Item Value Reference Range Interpretation Comments FIBRINOGEN LEVEL (BEAKER) (test 253 mg/dl 225-434 code = 658) [id number] 21:45:00 Test Item Value Reference Range Interpretation Comments PARTIAL THROMBOPLASTIN TIME 37.3 seconds 22.5-36.0 H (BEAKER) (test code = 760) PROTHROMBIN TIME/[id number] 21:44:00 Test Item Value Reference Range Interpretation Comments PROTIME (BEAKER) 19.4 seconds 11.9-14.2 H (test code = 759) INR (BEAKER) (test 1.66 See_Comment [Automat ed message] code = 370) The system [employer] generated this result transmitted ref erence range: <=5.90. The reference range was not used to int erpret this result as normal/abnormal . RECOMMENDED COUMADIN/WARFARIN INR THERAPY RANGESSTANDARD DOSE: 2.0 - 3.0 Includes: PROPHYLAXIS forvenous thrombosis, systemic embolization; TREATMENT for venous thrombosis and/or pulmonary embolus.HIGH RISK: Target INR is 2.5-3.5 for patients with mechanical heart valves.CALCIUM, [id number] 21:36:00 Test Item Value Reference Range Interpretation Comments CALCIUM IONIZED (BEAKER) (test 1.10 mmol/L 1.12-1.27 L code = 698) PH, BLOOD (BEAKER) (test code = 7.54 1810) BLOOD GAS, [id number] 21:36:00 Test Item Value Reference Range Interpretation [...] (BEAKER) (test code = 1819) 40.0 POCT-GLUCOSE [id number] 18:58:00 Test Item Value Reference Range Interpretation Comments POC-GLUCOSE METER 84 mg/dL 70-110 : TESTED A T [facility] 6720 (BEAKER) (test code = [place], 1538) 27221: Quality Control Associate/Techni won ID = [id number] for Mirna Tanner (contract), Tania lowery CBC W/PLT COUNT & AUTO [id number] 18:08:00 Test Item Value Reference Range Interpretation [...] (BEAKER) (test code = 2801) OXYGEN SATURATION, [id number] 17:48:00 Test Item Value Reference Range Interpretation Comments O2 SATURATION (MEASURED) (BEAKER) 82.4 % (test code = 1455) CBC W/PLT COUNT & AUTO [id number] 17:46:00 Test Item Value Reference Range Interpretation [...] (BEAKER) (test code = 2801) Comprehensive metabolic [id number] 16:31:00 Test Item Value Reference Range Interpretation Comments Protein, Total (test 5.2 See_Comment L [Autom ated code = 2885-2) message] The system which generated this result transmit ari reference range : 6.0 - 8.3 gm/dL . The reference range was not u sed to interpret th is result as normal/abnormal . Albumin (test code = 2.6 g/dL 3.5-5 L 12333-1) Alkaline Phosphatase 89 U/L 40-150 (test code = 6768-6) Total Bilirubin (test 0.8 mg/dL 0.2-1.2 code = 1974-2) Sodium (test code = 139 meq/L 158-667 4413-2) Potassium (test code 4.1 meq/L 3.5-5.1 = 2823-3) Chloride (test code = 105 meq/L 98-107 2074-0) CO2 (test code = 26 meq/L 22-29 2027-9) BUN (test code = 20 mg/dL 12-28 3094-0) Creatinine (test code 1.88 mg/dL 0.57-1.25 H = 2160-0) Glucose (test code = 113 mg/dL 70-105 H 2345-7) Calcium (test code = 8.2 mg/dL 8.4-10.2 L 02527-1) AST (test code = 772 U/L 5-34 H 1920-8) ALT (test code = 533 U/L 6-55 H 1742-6) EGFR (test code = 48 mL/min/1.[place] [address]-0) NOT ACCURATE CREATININE CLEARANCE IN PREDICTING GLOMERULAR FILTRATION RATE . ESTIMATED GFR I S NOT APPLICABLE FOR DIALYSIS PATIEN CARLEY (test code = CARLEY) Quality Control Associate ID - JESUS Lab Interpretation Abnormal (test code = 75229-6) [facility] [id number] 16:31:00 Test Item Value Reference Range Interpretation Comments Protein, Total (test 5.2 See_Comment L [Autom ated code = 2885-2) message] The system which generated this result transmit ari reference range : 6.0 - 8.3 gm/dL . The reference range was not u sed to interpret th is result as normal/abnormal . Albumin (test code = 2.6 g/dL 3.5-5 L 44481-6) Alkaline Phosphatase 89 U/L 40-150 (test code = 6768-6) Total Bilirubin (test 0.8 mg/dL 0.2-1.2 code = 1974-2) Sodium (test code = 139 meq/L 934-016 8848-2) Potassium (test code 4.1 meq/L 3.5-5.1 = 2823-3) Chloride (test code = 105 meq/L 98-107 2075-0) CO2 (test code = 26 meq/L 2028-02) BUN (test code = 20 mg/dL 12-28 3094-0) Creatinine (test code 1.88 mg/dL 0.57-1.25 H = 2160-0) Glucose (test code = 113 mg/dL 70-105 H 2345-7) Calcium (test code = 8.2 mg/dL 8.4-10.2 L 83978-2) AST (test code = 772 U/L 5-34 H 1920-8) ALT (test code = 533 U/L 6-55 H 1742-6) EGFR (test code = 48 mL/min/1.[place] [address]-1) NOT ACCURATE CREATININE CLEARANCE IN PREDICTING GLOMERULAR FILTRATION RATE . ESTIMATED GFR I S NOT APPLICABLE FOR DIALYSIS PATIEN TS. HOWE (test code = CARLEY) Quality Control Associate ID - JUN Lab Interpretation Abnormal (test code = 75243-2) [facility] [id number] 16:31:00 Test Item Value Reference Range Interpretation Comments Protein, Total (test 5.2 See_Comment L [Autom ated code = 2885-2) message] The system which generated this result transmit ari reference range : 6.0 - 8.3 gm/dL . The reference range was not u sed to interpret th is result as normal/abnormal . Albumin (test code = 2.6 g/dL 3.5-5 L 64539-4) Alkaline Phosphatase 89 U/L 40-150 (test code = 6768-6) Total Bilirubin (test 0.8 mg/dL 0.2-1.2 code = 1974-2) Sodium (test code = 139 meq/L 432-149 0288-2) Potassium (test code 4.1 meq/L 3.5-5.1 = 2823-3) Chloride (test code = 105 meq/L 98-107 2075-0) CO2 (test code = 26 meq/L 22-29 2027-9) BUN (test code = 20 mg/dL 7- 3094-0) Creatinine (test code 1.88 mg/dL 0.57-1.25 H = 2160-0) Glucose (test code = 113 mg/dL 70-105 H 2345-7) Calcium (test code = 8.2 mg/dL 8.4-10.2 L 42405-6) AST (test code = 772 U/L 5-34 H 1920-8) ALT (test code = 533 U/L 6-55 H 1742-6) EGFR (test code = 48 mL/min/1.[place] [address]-2) NOT ACCURATE CREATININE CLEARANCE IN PREDICTING GLOMERULAR FILTRATION RATE . ESTIMATED GFR I S NOT APPLICABLE FOR DIALYSIS PATIEN TS. CARLEY (test code = CARLEY) Quality Control Associate ID - JESUS Lab Interpretation Abnormal (test code = 17814-7) [facility] CenterCOMPREHENSIVE METABOLIC [id number] 16:31:00 Test Item Value Reference Range Interpretation [...] S NOT APPLICABLE FOR DIALYSIS PATIEN TS. Quality Control Associate ID - [id number] 16:31:00 Test Item Value Reference Range Interpretation Comments MAGNESIUM (BEAKER) (test code = 2.3 mg/dL 1.6-2.6 627) Quality Control Associate ID - [id number] 16:31:00 Test Item Value Reference Range Interpretation Comments PHOSPHORUS (BEAKER) (test code = 4.2 mg/dL 2.3-4.7 604) Quality Control Associate ID - JESUSLACTIC ACID, [id number] 16:27:00 Test Item Value Reference Range Interpretation Comments LACTATE BLOOD ARTERIAL (2) 2.0 mmol/L 0.5-2.2 (BEAKER) (test code = 2874) Quality Control Associate ID - JENAE, CHEST, 1 VIEW, NON [id number] 16:17:00Reason for exam:->post opShould this be performed at the bedside?->Yes [facility] : 1975 Sex: MFINAL REPORT [...] Ferrell Verified Date/Time: 01/23/2021 16:17:46 Reading Location: [address] Reading Room [id number] 16:15:00 Test Item Value Reference Range Interpretation Comments FIBRINOGEN LEVEL (BEAKER) (test 274 mg/dl 225-434 code = 658) [id number] 16:15:00 Test Item Value Reference Range Interpretation Comments PARTIAL THROMBOPLASTIN TIME 39.6 seconds 22.5-36.0 H (BEAKER) (test code = 760) PROTHROMBIN TIME/[id number] 16:14:00 Test Item Value Reference Range Interpretation Comments PROTIME (BEAKER) 19.0 seconds 11.9-14.2 H (test code = 759) INR (BEAKER) (test 1.62 See_Comment [Automat ed message] code = 370) The system [employer] generated this result transmitted ref erence range: <=5.90. The reference range was not used to int erpret this result as normal/abnormal . RECOMMENDED COUMADIN/WARFARIN INR THERAPY RANGESSTANDARD DOSE: 2.0 - 3.0 Includes: PROPHYLAXIS forvenous thrombosis, systemic embolization; TREATMENT for venous thrombosis and/or pulmonary embolus.HIGH RISK: Target INR is 2.5-3.5 for patients with mechanical heart valves.BLOOD GAS, [id number] 16:01:00 Test Item Value Reference Range Interpretation [...] (BEAKER) (test code = 1819) 60.0 POTASSIUM-STAT [id number] 16:01:00 Test Item Value Reference Range Interpretation Comments POTASSIUM (BEAKER) (test code = 3.9 meq/L 3.6-5.5 379) GLUCOSE-STAT [id number] 16:01:00 Test Item Value Reference Range Interpretation Comments GLUCOSE RANDOM (BEAKER) (test code 117 mg/dL 70-110 H = 652) HGB/HCT (H&H) - STAT [id number] 16:01:00 Test Item Value Reference Range Interpretation Comments HEMOGLOBIN (BEAKER) (test code = 7.6 GM/DL 13.0-16.8 L 410) HEMATOCRIT (BEAKER) (test code = 22.0 % 40.0-50.0 L 411) SODIUM NA-STAT [id number] 16:00:00 Test Item Value Reference Range Interpretation Comments SODIUM (BEAKER) (test code = 381) 136 meq/L 136-145 [id number] 14:05:00 Test Item Value Reference Range Interpretation Comments FIBRINOGEN LEVEL (BEAKER) (test 265 mg/dl 225-434 code = 658) [id number] 14:05:00 Test Item Value Reference Range Interpretation Comments PARTIAL THROMBOPLASTIN TIME 51.7 seconds 22.5-36.0 H (BEAKER) (test code = 760) PROTHROMBIN [id number] 14:04:00 Test Item Value Reference Range Interpretation Comments PROTIME (BEAKER) 19.9 seconds 11.9-14.2 H (test code = 759) INR (BEAKER) (test 1.72 See_Comment [Automat ed message] code = 370) The system [employer] generated this result transmitted ref erence range: <=5.90. The reference range was not used to int erpret this result as normal/abnormal . RECOMMENDED COUMADIN/WARFARIN INR THERAPY RANGESSTANDARD DOSE: 2.0 - 3.0 Includes: PROPHYLAXIS forvenous thrombosis, systemic embolization; TREATMENT for venous thrombosis and/or pulmonary embolus.HIGH RISK: Target INR is 2.5-3.5 for patients with mechanical heart valves.Platelet [id number] 14:01:00 Test Item Value Reference Range Interpretation Comments Platelets (test code 113 See_Comment L [Autom ated = 777-3) message] The system which generated this result transmit ari reference range : 150 - 450 K/CU MM. The reference range was not u sed to interpret th is result as normal/abnormal . CARLEY (test code = CARLEY) Quality Control Associate ID - [id number] ID - [id number] Lab Interpretation Abnormal (test code = 13540-4) [facility] [id number] 14:01:00 Test Item Value Reference Range Interpretation Comments Platelets (test code 113 See_Comment L [Autom ated = 777-3) message] The system which generated this result transmit ari reference range : 150 - 450 K/CU MM. The reference range was not u sed to interpret th is result as normal/abnormal . CARLEY (test code = CARLEY) Quality Control Associate ID - [id number] ID - [id number] Lab Interpretation Abnormal (test code = 90848-5) [facility] [id number] 14:01:00 Test Item Value Reference Range Interpretation Comments Platelets (test code 113 See_Comment L [Autom ated = 777-3) message] The system which generated this result transmit ari reference range : 150 - 450 K/CU MM. The reference range was not u sed to interpret th is result as normal/abnormal . CARLEY (test code = CARLEY) Quality Control Associate ID - [id number] ID - [id number] Lab Interpretation Abnormal (test code = 71476-2) [facility] [id number] 14:01:00 Test Item Value Reference Range Interpretation Comments PLATELET COUNT (BEAKER) (test 113 K/CU MM 150-450 L code = 756) Quality Control Associate ID - [id number] ID - [id number] NA-STAT [id number] 13:50:00 Test Item Value Reference Range Interpretation Comments SODIUM (BEAKER) (test code = 381) 136 meq/L 136-145 POTASSIUM-STAT [id number] 13:50:00 Test Item Value Reference Range Interpretation Comments POTASSIUM (BEAKER) (test code = 4.4 meq/L 3.6-5.5 379) CALCIUM, [id number] 13:50:00 Test Item Value Reference Range Interpretation Comments CALCIUM IONIZED (BEAKER) (test 1.13 mmol/L 1.12-1.27 code = 698) PH, BLOOD (BEAKER) (test code = 7.43 1810) BLOOD GAS, [id number] 13:50:00 Test Item Value Reference Range Interpretation [...] (BEAKER) (test code = 1819) 50.0 GLUCOSE-STAT [id number] 13:50:00 Test Item Value Reference Range Interpretation Comments GLUCOSE RANDOM (BEAKER) (test code 111 mg/dL 70-110 H = 652) HGB/HCT (H&H) - STAT [id number] 13:50:00 Test Item Value Reference Range Interpretation Comments HEMOGLOBIN (BEAKER) (test code = 8.8 GM/DL 13.0-16.8 L 410) HEMATOCRIT (BEAKER) (test code = 26.0 % 40.0-50.0 L 411) ANG, TUNNELED CATHETER [id number] 11:20:00Reason for Central Line/PICC?->Need for hemodialysis accessReason for exam:->TDC [facility] 1975 Sex: MFINAL REPORT Tunneled dialysis catheter insertion. History: Renal failure. Modality: Sonography and fluoroscopy. Sedation: none English As A Second Language Teacher: Williams Garrett M.D. Welding Machine Operator Electroslag: Vannesa Owen MD. Approach: Right internal jugular [...] needle into the right atrium. A 4 [place] micropuncture sheath was placed and a 0.035 wire was advanced into the IVC. A subcutaneous tunnel was created in the right anterior chest wall by blunt dissection. A 19 cm tip to cuff 15.5 [place] Duraflow 2 catheter was brought through the [...] Verified Date/Time: 01/23/2021 11:20:38 IR Tunneled Catheter [id number] 11:20:00Interface, External Ris In - 01/23/2021 11:22 AM CDTFINAL REPORT Tunneled dialysis catheter insertion. History: Renal failure. Modality: Sonography and fluoroscopy. Sedation: none English As A Second Language Teacher: Williams Garrett M.D. Welding Machine Operator Electroslag: Vannesa Owen MD. Approach: Right internal jugular [...] needle into the right atrium. A 4 [place] micropuncture sheath was placed and a 0.035 wire was advanced into the IVC. A subcutaneous tunnel was created in the right anterior chest wall by blunt dissection. A 19 cm tip to cuff 15.5 [place] Duraflow 2 catheter was brought through the [...] Williams Garrett MDReport Verified Date/Time: 01/23/2021 11:20:38 [facility] [id number] 11:20:00Interface, External Ris In - 01/23/2021 11:22 AM CDTFINAL REPORT Tunneled dialysis catheter insertion. History: Renal failure. Modality: Sonography and fluoroscopy. Sedation: none English As A Second Language Teacher: Williams Garrett M.D. Welding Machine Operator Electroslag: Vannesa Owen MD. Approach: Right internal jugular [...] needle into the right atrium. A 4 [place] micropuncture sheath was placed and a 0.035 wire was advanced into the IVC. A subcutaneous tunnel was created in the right anterior chest wall by blunt dissection. A 19 cm tip to cuff 15.5 [place] Duraflow 2 cat heter was brought through [...] Williams Garrett MDReport Verified Date/Time: 01/23/2021 11:20:38 [facility] [id number] 11:20:00Interface, External Ris In - 01/23/2021 11:22 AM CDTFINAL REPORT Tunneled dialysis catheter insertion. History: Renal failure. Modality: Sonography and fluoroscopy. Sedation: none English As A Second Language Teacher: Williams Garrett M.D. Welding Machine Operator Electroslag: Vannesa Owen MD. Approach: Right internal jugular [...] needle into the right atrium. A 4 [place] micropuncture sheath was placed and a 0.035 wire was advanced into the IVC. A subcutaneous tunnel was created in the right anterior chest wall by blunt dissection. A 19 cm tip to cuff 15.5 [place] Duraflow 2 cat heter was brought through [...] Williams Garrett MDReport Verified Date/Time: 01/23/2021 11:20:38 [facility] HospitalManual [id number] 10:57:00 Test Item Value Reference Range Interpretation [...] = 3438) CARLEY (test code = CARLEY) Quality Control Associate ID - [id number] ID - Sun Menendez comments: Slide comments: Lab Interpretation (test Abnormal code = 51842-2) [facility] [id number] 10:57:00 Test Item Value Reference Range Interpretation [...] = 3438) CARLEY (test code = CARLEY) Quality Control Associate ID - [id number] ID - Sun Menendez comments: Slide comments: Lab Interpretation (test Abnormal code = 69682-8) [facility] [id number] 10:57:00 Test Item Value Reference Range Interpretation [...] = 3438) CARLEY (test code = CARLEY) Quality Control Associate ID - [id number] ID - Sun Shon comments: Slide comments: Lab Interpretation (test Abnormal code = 86323-1) [facility](CELLAVISION MANUAL DIFF)2021-01-23 10:57:00 Test Item [...] CONCENTRATION Decreased (CELLAVISION)(BEAKER) (test code = 3438) Quality Control Associate ID - [id number] ID - Sun Shon comments: Slide comments:MAGNESIUM 2021-01-23 10:10:00 Test Item Value Reference Range Interpretation Comments MAGNESIUM (BEAKER) 2.2 mg/dL 1.6-2.6 Specimen slightly (test code = 627) hemolyzed Quality Control Associate ID - [id number] 10:10:00 Test Item Value Reference Range Interpretation Comments PHOSPHORUS (BEAKER) 3.5 mg/dL 2.3-4.7 Specimen slightly (test code = 604) hemolyzed Quality Control Associate ID - JANPOCT-GLUCOSE [id number] 10:01:00 Test Item Value Reference Range Interpretation Comments POC-GLUCOSE METER 108 mg/dL 70-110 : TESTED A T [facility] 6720 (BEAKER) (test code = [place], 1538) [id number]: Quality Control Associate/Techni won ID = [id number] for Fo ntroquet, Levy CBC (HEMOGRAM ONLY)2021-01-23 [...] H (test code = 413) BASIC METABOLIC [id number] 04:53:00 Test Item Value Reference Range Interpretation [...] S NOT APPLICABLE FOR DIALYSIS PATIEN TS. Quality Control Associate ID - [id number] 04:53:00 Test Item Value Reference Range Interpretation Comments MAGNESIUM (BEAKER) (test code = 2.2 mg/dL 1.6-2.6 627) Quality Control Associate ID - [id number] 04:53:00 Test Item Value Reference Range Interpretation Comments PHOSPHORUS (BEAKER) (test code = 2.9 mg/dL 2.3-4.7 604) Quality Control Associate ID - DBPROTHROMBIN TIME/[id number] 04:43:00 Test Item Value Reference Range Interpretation Comments PROTIME (BEAKER) 24.0 seconds 11.9-14.2 H (test code = 759) INR (BEAKER) (test 2.17 See_Comment [Automat ed message] code = 370) The system [employer] generated this result transmitted ref erence range: <=5.90. The reference range was not used to int erpret this result as normal/abnormal . RECOMMENDED COUMADIN/WARFARIN INR THERAPY RANGESSTANDARD DOSE: 2.0 - 3.0 Includes: PROPHYLAXIS forvenous thrombosis, systemic embolization; TREATMENT for venous thrombosis and/or pulmonary embolus.HIGH RISK: Target INR is 2.5-3.5 for patients with mechanical heart valves.[id number] 04:43:00 Test Item Value Reference Range Interpretation Comments PARTIAL THROMBOPLASTIN TIME 46.2 seconds 22.5-36.0 H (BEAKER) (test code = 760) CBC W/PLT COUNT & AUTO [id number] 04:38:00 Test Item Value Reference Range Interpretation [...] 0-0 (test code = 413) LACTIC ACID, [id number] 04:27:00 Test Item Value Reference Range Interpretation Comments LACTATE BLOOD 2.2 mmol/L 0.5-2.2 Specimen sligh tly ARTERIAL (2) (BEAKER) hemoly zed (test code = 2874) Quality Control Associate ID - DBBLOOD GAS, [id number] 04:14:00 Test Item Value Reference Range Interpretation [...] (test code = 1819) 60.0 OXYGEN SATURATION, [id number] 04:14:00 Test Item Value Reference Range Interpretation Comments O2 SATURATION (MEASURED) (BEAKER) 67.7 % (test code = 1455) CALCIUM, [id number] 04:14:00 Test Item Value Reference Range Interpretation Comments CALCIUM IONIZED (BEAKER) (test 1.18 mmol/L 1.12-1.27 code = 698) PH, BLOOD (BEAKER) (test code = 7.50 1810) RAD, CHEST, 1 VIEW, NON [id number] 03:56:00Reason for exam:->chest tubes, s/p cardiac surgeryShould this be performed at the bedside?->Yes [facility] 1975 Sex: MFINAL REPORT RAD, CHEST, 1 VIEW, NON DEPT INDICATION: chest tubes, s/p cardiac surgery COMPARISON: Prior day's exam FINDINGS: Portable frontal view of the chest. IMPRESSION: Support Lines: Stable. Lungs and pleura: Unchanged airspace and pleural opacities. No pneumothorax.Heart and mediastinum: Stable contours. Stable surgical changes.Additional findings: None. Signed: Sae Pinon Verified Date/Time: 01/23/2021 03:56:28 [id number] 01:12:00 Test Item Value Reference Range Interpretation Comments MAGNESIUM (BEAKER) 1.6 mg/dL 1.6-2.6 Specimen slightly (test code = 627) hemolyzed Quality Control Associate ID - DBBASIC METABOLIC [id number] 01:12:00 Test Item Value Reference Range Interpretation [...] S NOT APPLICABLE FOR DIALYSIS PATIEN TS. Quality Control Associate ID - DBLACTIC ACID, [id number] 01:08:00 Test Item Value Reference Range Interpretation Comments LACTATE BLOOD 2.9 mmol/L 0.5-2.2 H Specimen sligh tly ARTERIAL (2) (BEAKER) hemoly zed (test code = 2874) Quality Control Associate ID - DBCALCIUM, [id number] 00:35:00 Test Item Value Reference Range Interpretation Comments CALCIUM IONIZED (BEAKER) (test 1.17 mmol/L 1.12-1.27 code = 698) PH, BLOOD (BEAKER) (test code = 7.50 1810) BLOOD GAS, [id number] 00:35:00 Test Item Value Reference Range Interpretation [...] FIO2 (BEAKER) (test code = 1819) 60.0 [id number] 21:21:00 Test Item Value Reference Range Interpretation Comments PARTIAL THROMBOPLASTIN TIME 54.6 seconds 22.5-36.0 H (BEAKER) (test code = 760) PROTHROMBIN TIME/[id number] 21:20:00 Test Item Value Reference Range Interpretation Comments PROTIME (BEAKER) 28.7 seconds 11.9-14.2 H (test code = 759) INR (BEAKER) (test 2.73 See_Comment [Automat ed message] code = 370) The system [employer] generated this result transmitted ref erence range: <=5.90. The reference range was not used to int erpret this result as normal/abnormal . RECOMMENDED COUMADIN/WARFARIN INR THERAPY RANGESSTANDARD DOSE: 2.0 - 3.0 Includes: PROPHYLAXIS forvenous thrombosis, systemic embolization; TREATMENT for venous thrombosis and/or pulmonary embolus.HIGH RISK: Target INR is 2.5-3.5 for patients with mechanical heart valves.[id number] 21:20:00 Test Item Value Reference Range Interpretation Comments FIBRINOGEN LEVEL (BEAKER) (test 228 mg/dl 225-434 code = 658) [id number] 21:02:00 Test Item Value Reference Range Interpretation Comments PHOSPHORUS (BEAKER) (test code = 4.2 mg/dL 2.3-4.7 604) Quality Control Associate ID - DBLACTIC ACID, [id number] 21:00:00 Test Item Value Reference Range Interpretation Comments LACTATE BLOOD ARTERIAL (2) 3.6 mmol/L 0.5-2.2 H (BEAKER) (test code = 2874) Quality Control Associate ID - DBCBC (HEMOGRAM ONLY)2021-01-22 20:50:00 Test [...] H (test code = 413) BLOOD GAS, [id number] 20:37:00 Test Item Value Reference Range Interpretation [...] (test code = 1819) 60.0 OXYGEN SATURATION, [id number] 20:37:00 Test Item Value Reference Range Interpretation Comments O2 SATURATION (MEASURED) (BEAKER) 45.7 % (test code = 1455) HGB/HCT (H&H) - STAT [id number] 20:37:00 Test Item Value Reference Range Interpretation Comments HEMOGLOBIN (BEAKER) (test code = 8.7 GM/DL 13.0-16.8 L 410) HEMATOCRIT (BEAKER) (test code = 26.0 % 40.0-50.0 L 411) GLUCOSE-STAT [id number] 20:36:00 Test Item Value Reference Range Interpretation Comments GLUCOSE RANDOM (BEAKER) (test code 110 mg/dL 70-110 = 652) SODIUM NA-STAT [id number] 20:36:00 Test Item Value Reference Range Interpretation Comments SODIUM (BEAKER) (test code = 381) 136 meq/L 136-145 POTASSIUM-STAT [id number] 20:36:00 Test Item Value Reference Range Interpretation Comments POTASSIUM (BEAKER) (test code = 4.2 meq/L 3.6-5.5 379) CT, CHEST, WITH [id number] 20:16:00Unlisted Reason for Exam - Click Yes and Enter Reason Below->No [facility] 1975 Sex: MFINAL REPORT [...] Sae Pinon Verified Date/Time: 01/22/2021 20:16:28 CT, [id number] 20:16:00Unlisted Reason for Exam - Click Yes and Enter Reason Below->YesUnlisted Reason for Exam->ruleout bleedWill this procedure require oral contrast?->No [facility] 1975 Sex: [...] Date/Time: 01/22/2021 20:16:28 CT chest with IV [id number] 20:16:00Interface, External Ris In - 01/22/2021 8:19 [...] Signed: Sae Pinon Verified Date/Time: 01/22/2021 20:16:28 [facility] [id number] 20:16:00Interface, External Ris In - 01/22/2021 8:19 [...] Signed: Sae Pinon Verified Date/Time: 01/22/2021 20:16:28 [facility] [id number] 20:16:00Interface, External Ris In - 01/22/2021 8:19 [...] Signed: Sae Pinon Verified Date/Time: 01/22/2021 20:16:28 [facility] IV [id number] 20:16:00Interface, External Ris In - 01/22/2021 8:19 [...] Signed: Sae Pinon Verified Date/Time: 01/22/2021 20:16:28 [facility] [id number] 20:16:00Interface, External Ris In - 01/22/2021 8:19 [...] Signed: Sae Pinon Verified Date/Time: 01/22/2021 20:16:28 [facility] with IV [id number] 20:16:00Interface, External Ris In - 01/22/2021 8:19 [...] Signed: Sae Pinon Verified Date/Time: 01/22/2021 20:16:28 [facility], [id number] 18:28:00 Test Item Value Reference Range Interpretation [...] 1819) 60.0 RAD, CHEST, 1 VIEW, NON [id number] 18:14:00Reason for exam:->chest tubeShould this be performed at the bedside?->Yes [facility] 1975 Sex: MFINAL REPORT Chest one view. Clinical history: chest tube Comparison: 01/22/2021 Discussion: A frontal chest is provided. Cardiomediastinal contours are unchanged. Lines and tubes are in stable position. Left pleural- parenchymal opacities are unchanged. No pneumothorax. Signed: Sharla Lopez Verified Date/Time: 01/22/2021 18:14:34 Reading Location: [address] Ortho Consult Reading Room POCT-GLUCOSE [id number] 16:43:00 Test Item Value Reference Range Interpretation Comments POC-GLUCOSE METER 88 mg/dL 70-110 : TESTED A T [facility] 6720 (BEAKER) (test code = NORM [place]ULT[place], 1538) [id number]: Quality Control Associate/Techni won ID = [id number] for Font Levy allen 2D Echo W/Doppler(CW/PW/Color)2021-01-22 15:11:52Ejection FractionSST. [facility] E[facility]ART[facility] MKCKESSON CPACSInterface, External Ris In - 01/22/2021 3:12 PM C DTTransthoracic Echocardiography Report (TTE) Demographics Patient Name CROW KAUR Date ofStudy 01/22/2021 RYAN SR. 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 Gender Male Visit Number [id number] Race Unknown Room Number C823 Number Date of 1975 Referring Jes Ramos NP Physician Age 45 year(s) [employer] Jeffrey Montes [facility] Corporate Executive Olvin Butler Interpreting Physician YUNIER Marks Procedure [...] TR Velocity: 2.68 m/s TR Gradient: 28.64 mmHgSaddleback Memorial Medical Center2D Echo W/Doppler(CW/PW/Color)2021-01-22 15:11:52Ejection FractionSLEH ECHO HEARTLAB MKCKESSON CPACSInterface, External Ris In - 01/22/2021 3:12 PM CDTTransthoracic Echocardiography Report (TTE) Demographics Patient Name CROW KAUR Date ofStudy 01/22/2021 RYAN SR. 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 [facility] Corporate Executive Olvin Butler Interpreting Physician YUNIER Marks Procedure [...] TR Velocity: 2.68 m/s TR Gradient: 28.64 mmHgSaddleback Memorial Medical CenterBLOOD GAS, [id number] 15:01:00 Test Item Value Reference Range Interpretation [...] 1819) 60.0 CBC W/PLT COUNT & AUTO [id number] 14:49:00 Test Item Value Reference Range Interpretation [...] CONCENTRATION Decreased (CELLAVISION)(BEAKER) (test code = 3438) Quality Control Associate ID - [id number] ID - Dariela OverholtUser comments: Slide comments: LACTIC ACID, [id number] 14:46:00 Test Item Value Reference Range Interpretation Comments LACTATE BLOOD ARTERIAL (2) (BEAKER) > mmol/L 0.5-2.2 HH (test code = 0754) Quality Control Associate ID - VALDEZ MBLOOD GAS, [id number] 14:45:00 Test Item Value Reference Range Interpretation [...] (BEAKER) (test code = 1819) 100.0 POCT-GLUCOSE [id number] 14:33:00 Test Item Value Reference Range Interpretation Comments POC-GLUCOSE METER 139 mg/dL 70-110 H : TESTED A T [facility] 6720 (BEAKER) (test code = NORM SHULT[place], 1538) [id number]: Quality Control Associate/Techni won ID = [id number] for Ob iJoyce BASIC METABOLIC [id number] 14:30:00 Test Item Value Reference Range Interpretation [...] S NOT APPLICABLE FOR DIALYSIS PATIEN TS. Quality Control Associate ID - VALDEZ [id number] 14:30:00 Test Item Value Reference Range Interpretation Comments MAGNESIUM (BEAKER) (test code = 2.0 mg/dL 1.6-2.6 627) Quality Control Associate ID - VALDEZ [id number] 14:30:00 Test Item Value Reference Range Interpretation Comments PHOSPHORUS (BEAKER) (test code = 5.0 mg/dL 2.3-4.7 H 604) Quality Control Associate ID - VALDEZ MCALCIUM, [id number] 14:23:00 Test Item Value Reference Range Interpretation Comments CALCIUM IONIZED (BEAKER) (test 1.18 mmol/L 1.12-1.27 code = 698) PH, BLOOD (BEAKER) (test code = 7.36 1810) GLUCOSE-STAT [id number] 14:23:00 Test Item Value Reference Range Interpretation Comments GLUCOSE RANDOM (BEAKER) (test code = 58 mg/dL 70-110 L 652) HGB/HCT (H&H) - STAT [id number] 14:23:00 Test Item Value Reference Range Interpretation Comments HEMOGLOBIN (BEAKER) (test code = 7.0 GM/DL 13.0-16.8 L 410) HEMATOCRIT (BEAKER) (test code = 21.0 % 40.0-50.0 L 411) SODIUM NA-STAT [id number] 14:23:00 Test Item Value Reference Range Interpretation Comments SODIUM (BEAKER) (test code = 381) 138 meq/L 136-145 POTASSIUM-STAT [id number] 14:23:00 Test Item Value Reference Range Interpretation Comments POTASSIUM (BEAKER) (test code = 3.8 meq/L 3.6-5.5 379) OXYGEN SATURATION, [id number] 14:22:00 Test Item Value Reference Range Interpretation Comments O2 SATURATION (MEASURED) (BEAKER) 24.2 % (test code = 1455) [id number] 14:19:00 Test Item Value Reference Range Interpretation Comments PARTIAL THROMBOPLASTIN TIME 59.4 seconds 22.5-36.0 H (BEAKER) (test code = 760) PROTHROMBIN [id number] 14:18:00 Test Item Value Reference Range Interpretation Comments PROTIME (BEAKER) 28.1 seconds 11.9-14.2 H (test code = 759) INR (BEAKER) (test 2.66 See_Comment [Automat ed message] code = 370) The system [employer] generated this result transmitted ref erence range: <=5.90. The reference range was not used to int erpret this result as normal/abnormal . RECOMMENDED COUMADIN/WARFARIN INR THERAPY RANGESSTANDARD DOSE: 2.0 - 3.0 Includes: PROPHYLAXIS forvenous thrombosis, systemic embolization; TREATMENT for venous thrombosis and/or pulmonary embolus.HIGH RISK: Target INR is 2.5-3.5 for patients with mechanical heart valves.[id number] 14:18:00 Test Item Value Reference Range Interpretation Comments FIBRINOGEN LEVEL (BEAKER) (test 237 mg/dl 225-434 code = 658) POCT-GLUCOSE [id number] 14:08:00 Test Item Value Reference Range Interpretation Comments POC-GLUCOSE METER 57 mg/dL 70-110 L : TESTED A T [facility] 6720 (BEAKER) (test code = [facility], 1538) [id number]: Quality Control Associate/Techni won ID = [id number] for Atwo od (V), Anurag POCT-GLUCOSE [id number] 13:35:00 Test Item Value Reference Range Interpretation Comments POC-GLUCOSE METER 66 mg/dL 70-110 L : TESTED A T [facility] 6720 (BEAKER) (test code = [facility], 1538) 99063: Quality Control Associate/Techni won ID = [id number] for Atwo od (V), Anurag BLOOD GAS, [id number] 12:16:00 Test Item Value Reference Range Interpretation [...] (test code = 1819) 60.0 LACTIC ACID, [id number] 11:59:00 Test Item Value Reference Range Interpretation Comments LACTATE BLOOD ARTERIAL (2) (BEAKER) > mmol/L 0.5-2.2 HH (test code = 2874) Quality Control Associate ID - VALDEZ MPOCT-GLUCOSE [id number] 11:57:00 Test Item Value Reference Range Interpretation Comments POC-GLUCOSE METER 84 mg/dL 70-110 : TESTED A T [facility] 6720 (BEAKER) (test code = [facility], 1538) 41443: Quality Control Associate/Techni won ID = [id number] for VINOD, RONAL POCT-GLUCOSE [id number] 11:31:00 Test Item Value Reference Range Interpretation Comments POC-GLUCOSE METER 222 mg/dL 70-110 H : TESTED A T [facility] 6720 (BEAKER) (test code = [facility], 1538) 05701: Quality Control Associate/Techni won ID = [id number] for Curtis white (Anurag Arevalo POCT-GLUCOSE [id number] 11:29:00 Test Item Value Reference Range Interpretation Comments POC-GLUCOSE METER < mg/dL 70-110 LL : TESTED A T [facility] 6720 (BEAKER) (test code = [facility], 1538) 90627: Quality Control Associate/Techni won ID = [id number] for RONAL BROCK POCT-GLUCOSE [id number] 11:17:00 Test Item Value Reference Range Interpretation Comments POC-GLUCOSE METER 290 mg/dL 70-110 H : TESTED A T [facility] 6720 (BEAKER) (test code = [facility], 1538) 54960: Quality Control Associate/Techni won ID = [id number] for Mica Wynn POCT-GLUCOSE [id number] 11:14:00 Test Item Value Reference Range Interpretation Comments POC-GLUCOSE METER 45 mg/dL 70-110 L : TESTED A T [facility] 6720 (BEAKER) (test code = [facility], 1538) 33289: Quality Control Associate/Techni won ID = [id number] for Margareth noemíMica ECG 12 [id number] 10:49:43Interface, External Ris In 01/22/2021 10:49 AM CDTVentricular Rate 117 BPMAtrial Rate 141 BPMQRS Duration 104 msQ-T Interval 368 msQTC Calculation(Bazett) 513 msR Seibert -10 degreesT Seibert 130 degreesAtrial fibrillation with rapid ventricular responseST elevation consider inferior injury or acute infarctAbnormal ECGWhen compared with ECG of 16-JAN-2021 09:23,ST less depressed in Lateral leadsConfirmedby MD MOUNIKA, DELMAR ([id number]) on 01/22/2021 10:49:36 [facility] [id number] 10:49:43 Interface, External Ris In 01/22/2021 10:49 AM CDTVentricular Rate 117 BPMAtrial Rate 141 BPMQRS Duration 104 msQ-T Interval 368 msQTC Calculation(Bazett) 513 msR Seibert -10 degreesT Seibert 130 degreesAtrial fibrillation with rapid ventricular responseST elevation consider inferior injury or acute infarctAbnormal ECGWhen compared with ECG of 16-JAN-2021 09:23,ST less depressed in Lateral leadsConfirmedevelyn RIBERA MD, RUPA ([id number]) on 01/22/2021 10:49:36 [facility] [id number] 10:49:43 Interface, External Ris In - 01/22/2021 10:49 AM CDTVentricular Rate 117 BPMAtrial Rate 141 BPMQRS Duration 104 msQ-T Interval 368 msQTC Calculation(Bazett) 513 msR Seibert -10 degreesT Seibert 130 degreesAtrial fibrillation with rapid ventricular responseST elevation consider inferior injury or acute infarctAbnormal ECGWhen compared with ECG of 16-JAN-2021 09:23,ST less depressed in Lateral leadsConfirbrendon RIBERA MD, RUPA ([id number]) on 01/22/2021 10:49:36 [facility] [id number] 10:46:00 Test Item Value Reference Range Interpretation Comments GLUCOSE RANDOM (BEAKER) (test code = 14 mg/dL 70-110 LL 652) SODIUM NA-STAT [id number] 10:43:00 Test Item Value Reference Range Interpretation Comments SODIUM (BEAKER) (test code = 381) 139 meq/L 136-145 POTASSIUM-STAT [id number] 10:43:00 Test Item Value Reference Range Interpretation Comments POTASSIUM (BEAKER) (test code = 4.4 meq/L 3.6-5.5 379) OXYGEN SATURATION, [id number] 10:43:00 Test Item Value Reference Range Interpretation Comments O2 SATURATION (MEASURED) (BEAKER) 39.1 % (test code = 1455) HGB/HCT (H&H) - STAT [id number] 10:43:00 Test Item Value Reference Range Interpretation Comments HEMOGLOBIN (BEAKER) (test code = 7.4 GM/DL 13.0-16.8 L 410) HEMATOCRIT (BEAKER) (test code = 22.0 % 40.0-50.0 L 411) [id number] 09:58:00 Test Item Value Reference Range Interpretation Comments PARTIAL THROMBOPLASTIN TIME 100.2 seconds 22.5-36.0 H (BEAKER) (test code = 760) RAD, CHEST, 1 VIEW, NON [id number] 09:56:00Reason for exam:->left chest tube placementShould this be performed at the bedside?->Yes [facility] 1975 Sex: [...] MDReport Verified Date/Time: 01/22/2021 09:56:49 Reading Location: [address] Body Reading Room LACTIC ACID, [id number] 09:38:00 Test Item Value Reference Range Interpretation Comments LACTATE BLOOD ARTERIAL (2) 11.8 mmol/L 0.5-2.2 HH (BEAKER) (test code = 2874) Quality Control Associate ID - VALDEZ [id number] 08:42:00 Test Item Value Reference Range Interpretation Comments PARTIAL THROMBOPLASTIN TIME > seconds 22.5-36.0 HH (BEAKER) (test code = 760) BLOOD GAS, [id number] 08:41:00 Test Item Value Reference Range Interpretation [...] = 1819) 100.0 HGB/HCT (H&H) - STAT [id number] 08:31:00 Test Item Value Reference Range Interpretation Comments HEMOGLOBIN (BEAKER) (test code = 6.0 GM/DL 13.0-16.8 LL 410) HEMATOCRIT (BEAKER) (test code = 18.0 % 40.0-50.0 L 411) GLUCOSE-STAT [id number] 08:21:00 Test Item Value Reference Range Interpretation Comments GLUCOSE RANDOM (BEAKER) (test code = 75 mg/dL 70-110 652) SODIUM NA-STAT [id number] 08:21:00 Test Item Value Reference Range Interpretation Comments SODIUM (BEAKER) (test code = 381) 136 meq/L 136-145 POTASSIUM-STAT [id number] 08:21:00 Test Item Value Reference Range Interpretation Comments POTASSIUM (BEAKER) (test code = 4.0 meq/L 3.6-5.5 379) OXYGEN SATURATION, [id number] 08:21:00 Test Item Value Reference Range Interpretation Comments O2 SATURATION (MEASURED) (BEAKER) 38.7 % (test code = 1455) RAD, CHEST, 1 VIEW, NON [id number] 07:21:00Reason for exam:->s/p code, intubationShould this be performed at the bedside?->Yes [facility] 1975 Sex: MFINAL REPORT [...] Cantueport Verified Date/Time: 01/22/2021 07:21:40 Reading Location: [address] Neuro Reading Room HEMOGLOBIN AND [id number] 07:19:00 Test Item Value Reference Range Interpretation Comments HEMOGLOBIN (BEAKER) (test code = 5.4 GM/DL 13.7-17.5 LL 410) HEMATOCRIT (BEAKER) (test code = 18.5 % 40.1-51.0 L 411) Quality Control Associate ID - [id number] ID - [id number] ID - [id number]-type Natriuretic Factor (BNP)2021-01-22 07:17:00 Test Item Value Reference Range Interpretation Comments BNP (test code = 60647-0) 2620 pg/mL 0-100 H CARLEY (test code = CARLEY) Quality Control Associate ID - VALDEZ M Lab Interpretation (test Abnormal code = 61509-6) [facility]2021-01-22 07:17:00 Test Item Value Reference Range Interpretation Comments BNP (test code = 68005-7) 2620 pg/mL 0-100 H CARLEY (test code = CARLEY) Quality Control Associate ID - VALDEZ M Lab Interpretation (test Abnormal code = 81879-9) [facility] (BNP)2021-01-22 07:17:00 Test Item Value Reference Range Interpretation Comments BNP (test code = 91017-1) 2620 pg/mL 0-100 H CARLEY (test code = CARLEY) Quality Control Associate ID - VALDEZ M Lab Interpretation (test Abnormal code = 61521-0) [facility] NATRIURETIC FACTOR (BNP)2021-01-22 07:17:00 Test Item Value Reference Range Interpretation Comments B-TYPE NATRIURETIC PEPTIDE 2620 pg/mL 0-100 H (BEAKER) (test code = 700) Quality Control Associate ID - VALDEZ [id number] 07:16:00 Test Item Value Reference Range Interpretation Comments PARTIAL THROMBOPLASTIN TIME > seconds 22.5-36.0 HH (BEAKER) (test code = 760) BASIC METABOLIC [id number] 07:11:00 Test Item Value Reference Range Interpretation [...] S NOT APPLICABLE FOR DIALYSIS PATIEN TS. Quality Control Associate ID - VALDEZ [id number] 07:10:00 Test Item Value Reference Range Interpretation Comments MAGNESIUM (BEAKER) (test code = 2.1 mg/dL 1.6-2.6 627) Quality Control Associate ID - VALDEZ [id number] 07:10:00 Test Item Value Reference Range Interpretation Comments PHOSPHORUS (BEAKER) (test code = 7.0 mg/dL 2.3-4.7 H 604) Quality Control Associate ID - VALDEZ MHEPATIC FUNCTION [id number] 07:10:00 Test Item Value Reference Range Interpretation [...] code = 261 U/L 6-55 H 347) Quality Control Associate ID - VALDEZ MLACTIC ACID, [id number] 07:09:00 Test Item Value Reference Range Interpretation Comments LACTATE BLOOD ARTERIAL (2) 12.6 mmol/L 0.5-2.2 HH (BEAKER) (test code = 2874) Quality Control Associate ID - VALDEZ MPROTHROMBIN TIME/[id number] 07:02:00 Test Item Value Reference Range Interpretation Comments PROTIME (BEAKER) 22.6 seconds 11.9-14.2 H (test code = 759) INR (BEAKER) (test 2.01 See_Comment [Automat ed message] code = 370) The system [employer] generated this result transmitted ref erence range: <=5.90. The reference range was not used to int erpret this result as normal/abnormal . RECOMMENDED COUMADIN/WARFARIN INR THERAPY RANGESSTANDARD DOSE: 2.0 - 3.0 Includes: PROPHYLAXIS forvenous thrombosis, systemic embolization; TREATMENT for venous thrombosis and/or pulmonary embolus.HIGH RISK: Target INR is 2.5-3.5 for patients with mechanical heart valves.[id number] 07:02:00 Test Item Value Reference Range Interpretation Comments FIBRINOGEN LEVEL (BEAKER) (test 306 mg/dl 225-434 code = 658) CALCIUM, [id number] 06:48:00 Test Item Value Reference Range Interpretation Comments CALCIUM IONIZED (BEAKER) (test 1.34 mmol/L 1.12-1.27 H code = 698) PH, BLOOD (BEAKER) (test code = 7.30 1810) BLOOD GAS, [id number] 06:47:00 Test Item Value Reference Range Interpretation [...] (test code = 1819) 100.0 OXYGEN SATURATION, [id number] 06:47:00 Test Item Value Reference Range Interpretation Comments O2 SATURATION (MEASURED) (BEAKER) 48.0 % (test code = 1455) CBC W/PLT COUNT & AUTO [id number] 03:53:00 Test Item Value Reference Range Interpretation [...] PERCENT (BEAKER) (test code = 2801) PROTHROMBIN [id number] 03:47:00 Test Item Value Reference Range Interpretation Comments PROTIME (BEAKER) 16.4 seconds 11.9-14.2 H (test code = 759) INR (BEAKER) (test 1.34 See_Comment [Automat ed message] code = 370) The system [employer] generated this result transmitted ref erence range: <=5.90. The reference range was not used to int erpret this result as normal/abnormal . RECOMMENDED COUMADIN/WARFARIN INR THERAPY RANGESSTANDARD DOSE: 2.0 - 3.0 Includes: PROPHYLAXIS forvenous thrombosis, systemic embolization; TREATMENT for venous thrombosis and/or pulmonary embolus.HIGH RISK: Target INR is 2.5-3.5 for patients with mechanical heart valves.LACTIC ACID, [id number] 03:35:00 Test Item Value Reference Range Interpretation Comments LACTATE BLOOD ARTERIAL (2) 8.3 mmol/L 0.5-2.2 HH (BEAKER) (test code = 2874) Quality Control Associate ID - VALDEZ [id number] 03:06:00 Test Item Value Reference Range Interpretation Comments MAGNESIUM (BEAKER) 2.2 mg/dL 1.6-2.6 Specimen slightly (test code = 627) hemolyzed Quality Control Associate ID - VALDEZ [id number] 03:06:00 Test Item Value Reference Range Interpretation Comments PHOSPHORUS (BEAKER) 4.7 mg/dL 2.3-4.7 Specimen slightly (test code = 604) hemolyzed Quality Control Associate ID - VALDEZ MBASIC METABOLIC [id number] 03:06:00 Test Item Value Reference Range Interpretation [...] S NOT APPLICABLE FOR DIALYSIS PATIEN TS. Quality Control Associate ID - VALDEZ MCALCIUM, [id number] 02:59:00 Test Item Value Reference Range Interpretation Comments CALCIUM IONIZED (BEAKER) (test 1.21 mmol/L 1.12-1.27 code = 698) PH, BLOOD (BEAKER) (test code = 7.37 1810) BLOOD GAS, [id number] 02:59:00 Test Item Value Reference Range Interpretation [...] (test code = 1819) 36.0 OXYGEN SATURATION, [id number] 02:58:00 Test Item Value Reference Range Interpretation Comments O2 SATURATION (MEASURED) (BEAKER) 30.2 % (test code = 1455) [id number] 02:09:00 Test Item Value Reference Range Interpretation Comments PARTIAL THROMBOPLASTIN TIME 64.2 seconds 22.5-36.0 H (BEAKER) (test code = 760) RAD, CHEST, 1 VIEW, NON [id number] 01:42:00Reason for exam:->chest tubes, s/p cardiac surgeryShould this be performed at the bedside?->Yes [facility] 1975 Sex: MFINAL REPORT EXAM/TECHNIQUE: Single view frontal radiograph of the est. INDICATION: Chest tubes, status post cardiac surgery. COMPARISON: Chest radiography from 01/21/2021. FINDINGS: Devices/Objects: Right internal jugular central venous catheter terminates in the upper right atrium. Status post aortic valve placement. Feeding tube course below the diaphragm terminates below wrfkf-vj-uhur. Right chest tube is present. Lungs: Substantial increase in left pulmonary opacity and pleural effusion. Similar right basilar predominant pulmonary opacities. Heart/Mediastinum:Unchanged cardiomegaly. No interstitial thickening. Osseous: No acute osseous process. No suspiciousosseous lesion. Upper abdomen: Unremarkable. Impression: Substantial increase in left pleural effusion and pulmonary opacity. Signed: Philipp Booker MDReport Verified Date/Time: 01/22/2021 01:42:05 [id number] 23:19:00 Test Item Value Reference Range Interpretation Comments PARTIAL THROMBOPLASTIN TIME 113.7 seconds 22.5-36.0 H (BEAKER) (test code = 760) HEMOGLOBIN AND [id number] 22:54:00 Test Item Value Reference Range Interpretation Comments HEMOGLOBIN (BEAKER) (test code = 8.1 GM/DL 13.7-17.5 L 410) HEMATOCRIT (BEAKER) (test code = 26.2 % 40.1-51.0 L 411) Quality Control Associate ID - [id number] METABOLIC [id number] 22:17:00 Test Item Value Reference Range Interpretation [...] S NOT APPLICABLE FOR DIALYSIS PATIEN TS. Quality Control Associate ID - [id number] 22:17:00 Test Item Value Reference Range Interpretation Comments MAGNESIUM (BEAKER) (test code = 2.0 mg/dL 1.6-2.6 627) Quality Control Associate ID - [id number] 22:17:00 Test Item Value Reference Range Interpretation Comments PHOSPHORUS (BEAKER) (test code = 2.8 mg/dL 2.3-4.7 604) Quality Control Associate ID - DBPOCT-GLUCOSE [id number] 21:52:00 Test Item Value Reference Range Interpretation Comments POC-GLUCOSE METER 133 mg/dL 70-110 H : [facility] (BEAKER) (test code = [place], 1538) 02597: Quality Control Associate/Techni won ID = [id number] for VINOD CHAUDHARY Blood Culture - Routine (Left Venipuncture)2021-01-21 20:00:00 Test Item Value Reference Range Interpretation Comments Result (test code = No growth in 5 days 6463-4) [facility]) 2021-01-21 20:00:00 Test Item Value Reference Range Interpretation Comments Result (test code = No growth in 5 days 6463-4) [facility] 2021-01-21 20:00:00 Test Item Value Reference Range Interpretation Comments Result (test code = No growth in 5 days 6463-4) [facility] [id number] 20:00:00 Test Item Value Reference Range Interpretation Comments CULTURE (BEAKER) (test No growth in 5 days code = 1095) BLOOD [id number] 20:00:00 Test Item Value Reference Range Interpretation Comments CULTURE (BEAKER) (test No growth in 5 days code = 1095) BLOOD GAS, [id number] 19:08:00 Test Item Value Reference Range Interpretation [...] (BEAKER) (test code = 1819) 36.0 POCT-GLUCOSE [id number] 18:34:00 Test Item Value Reference Range Interpretation Comments POC-GLUCOSE METER 110 mg/dL 70-110 : TESTED A T [facility] 6720 (BEAKER) (test code = [place] [facility], 1538) 22848: Quality Control Associate/Techni won ID = [id number] for RONAL PEREZ [id number] 17:37:00 Test Item Value Reference Range Interpretation [...] is 2.5-3.5 for patients with mechanical heart valves.PT/[id number] 12:20:00 Test Item Value Reference Range Interpretation [...] 2.5-3.5 for patients with mechanical heart valves.POCT-GLUCOSE [id number] 12:19:00 Test Item Value Reference Range Interpretation Comments POC-GLUCOSE METER 79 mg/dL 70-110 : TESTED A T [facility] 6720 (BEAKER) (test code = NORM [place] [facility], 1538) 21098: Quality Control Associate/Techni won ID = [id number] for RONAL BROCK BLOOD GAS, [id number] 12:04:00 Test Item Value Reference Range Interpretation [...] FIO2 (BEAKER) (test code = 1819) 40.0 [id number] 10:02:00 Test Item Value Reference Range Interpretation Comments MAGNESIUM (BEAKER) 2.3 mg/dL 1.6-2.6 Specimen moderately (test code = 627) hemolyzed Quality Control Associate ID - [id number] 10:02:00 Test Item Value Reference Range Interpretation Comments PHOSPHORUS (BEAKER) 3.0 mg/dL 2.3-4.7 Specimen moderately (test code = 604) hemolyzed Quality Control Associate ID - [id number] 10:02:00 Test Item Value Reference Range Interpretation Comments POTASSIUM (BEAKER) 4.3 meq/L 3.5-5.1 Specimen moderately (test code = 379) hemolyzed Quality Control Associate ID - BSPOCT-GLUCOSE [id number] 08:50:00 Test Item Value Reference Range Interpretation Comments POC-GLUCOSE METER 123 mg/dL 70-110 H : [facility] (BEAKER) (test code = [place], 1538) [address]: Quality Control Associate/Techni won ID = [id number] for RONAL PEREZ pH, [id number] 08:34:00 Test Item Value Reference Range Interpretation Comments pH, Arterial (test code = 2744-1) 7.44 7.35-7.45 Lab Interpretation (test code = Normal 07429-1) [facility], [id number] 08:34:00 Test Item Value Reference Range Interpretation Comments pH, Arterial (test code = 2744-1) 7.44 7.35-7.45 Lab Interpretation (test code = Normal 31594-2) [facility], [id number] 08:34:00 Test Item Value Reference Range Interpretation Comments pH, Arterial (test code = 2744-1) 7.44 7.35-7.45 Lab Interpretation (test code = Normal 13422-8) [facility], [id number] 08:34:00 Test Item Value Reference Range Interpretation Comments PH ARTERIAL (BEAKER) (test code = 383) 7.44 7.35-7.45 RAD, CHEST, 1 VIEW, NON [id number] 07:58:00Reason for exam:->chest tubes, s/p cardiac surgeryShould this be performed at the bedside?->Yes [facility] 1975 Sex: MFINAL [...] MDReport Verified Date/Time: 01/21/2021 07:58:34 Reading Location: [address] Body Reading Room BASIC METABOLIC [...] S NOT APPLICABLE FOR DIALYSIS PATIEN TS. Quality Control Associate ID - VALDEZ [id number] 05:44:00 Test Item Value Reference Range Interpretation Comments MAGNESIUM (BEAKER) (test code = 2.2 mg/dL 1.6-2.6 627) Quality Control Associate ID - VALDEZ MHEPATIC FUNCTION [id number] 05:44:00 Test Item Value Reference Range Interpretation [...] code = 476 U/L 6-55 H 347) Quality Control Associate ID - VALDEZ [id number] 03:57:00 Test Item Value Reference Range Interpretation Comments PARTIAL THROMBOPLASTIN TIME 86.2 seconds 22.5-36.0 H (BEAKER) (test code = 760) PROTHROMBIN [id number] 03:56:00 Test Item Value Reference Range Interpretation Comments PROTIME (BEAKER) 14.6 seconds 11.9-14.2 H (test code = 759) INR (BEAKER) (test 1.16 See_Comment [Automat ed message] code = 370) The system [employer] generated this result transmitted ref erence range: [...] (BEAKER) (test code = 2801) BLOOD GAS, [id number] 03:43:00 Test Item Value Reference Range Interpretation [...] (BEAKER) (test code = 1819) 40.0 CALCIUM, [id number] 03:42:00 Test Item Value Reference Range Interpretation Comments CALCIUM IONIZED (BEAKER) (test 1.22 mmol/L 1.12-1.27 code = 698) PH, BLOOD (BEAKER) (test code = 7.43 1810) POCT-GLUCOSE [id number] 00:09:00 Test Item Value Reference Range Interpretation Comments POC-GLUCOSE METER 103 mg/dL 70-110 : [facility] (BEAKER) (test code = [place], 1538) 12948: Quality Control Associate/Techni won ID = [id number] for MARITZA LAURAVINOD LONDONO [id number] 22:06:00 Test Item Value Reference Range Interpretation Comments MAGNESIUM (BEAKER) 2.0 mg/dL 1.6-2.6 Specimen slightly (test code = 627) hemolyzed Quality Control Associate ID - [id number] 22:06:00 Test Item Value Reference Range Interpretation Comments PHOSPHORUS (BEAKER) 3.4 mg/dL 2.3-4.7 Specimen slightly (test code = 604) hemolyzed Quality Control Associate ID - [id number] 22:06:00 Test Item Value Reference Range Interpretation Comments POTASSIUM (BEAKER) 3.9 meq/L 3.5-5.1 Specimen slightly (test code = 379) hemolyzed Quality Control Associate ID - BSPH, [id number] 21:48:00 Test Item Value Reference Range Interpretation Comments PH ARTERIAL (BEAKER) (test code = 383) 7.44 7.35-7.45 [id number] 18:35:00 Test Item Value Reference Range Interpretation Comments POTASSIUM (BEAKER) 3.8 meq/L 3.5-5.1 Specimen slightly (test code = 379) hemolyzed Quality Control Associate ID - ADMINPOCT-GLUCOSE [id number] 18:20:00 Test Item Value Reference Range Interpretation Comments POC-GLUCOSE METER 92 mg/dL 70-110 : TESTED A T [facility] 6720 (BEAKER) (test code = [facility], 1538) 75453: Quality Control Associate/Techni won ID = [id number] for RONAL BROCK [id number] 13:41:00 Test Item Value Reference Range Interpretation Comments POTASSIUM (BEAKER) 4.1 meq/L 3.5-5.1 Specimen slightly (test code = 379) hemolyzed Quality Control Associate ID - ADMINPOCT-GLUCOSE [id number] 11:57:00 Test Item Value Reference Range Interpretation Comments POC-GLUCOSE METER 91 mg/dL 70-110 : TESTED A T [facility] 6720 (BEAKER) (test code = [facility], 1538) [id number]: Quality Control Associate/Techni won ID = [id number] for RONAL BROCK [id number] 10:33:00 Test Item Value Reference Range Interpretation Comments MAGNESIUM (BEAKER) (test code = 2.3 mg/dL 1.6-2.6 627) Quality Control Associate ID - [id number] 10:33:00 Test Item Value Reference Range Interpretation Comments PHOSPHORUS (BEAKER) (test code = 3.2 mg/dL 2.3-4.7 604) Quality Control Associate ID - [id number] 09:38:00 Test Item Value Reference Range Interpretation Comments PARTIAL THROMBOPLASTIN TIME 54.0 seconds 22.5-36.0 H (BEAKER) (test code = 760) PH, [id number] 09:17:00 Test Item Value Reference Range Interpretation Comments PH ARTERIAL (BEAKER) (test code = 383) 7.43 7.35-7.45 HEPATIC FUNCTION [id number] 07:42:00 Test Item Value Reference Range Interpretation [...] code = 659 U/L 6-55 H 347) Quality Control Associate ID - ADMINBASIC METABOLIC [id number] 04:51:00 Test Item Value Reference Range Interpretation [...] S NOT APPLICABLE FOR DIALYSIS PATIEN TS. Quality Control Associate ID - [id number] 04:49:00 Test Item Value Reference Range Interpretation Comments MAGNESIUM (BEAKER) (test code = 2.2 mg/dL 1.6-2.6 627) Quality Control Associate ID - ADMINPROTHROMBIN TIME/[id number] 04:19:00 Test Item Value Reference Range Interpretation Comments PROTIME (BEAKER) 16.2 seconds 11.9-14.2 H (test code = 759) INR (BEAKER) (test 1.33 See_Comment [Automat ed message] code = 370) The system [employer] generated this result transmitted ref erence range: [...] (BEAKER) (test code = 2801) BLOOD GAS, [id number] 03:56:00 Test Item Value Reference Range Interpretation [...] (BEAKER) (test code = 1819) 40.0 CALCIUM, [id number] 03:56:00 Test Item Value Reference Range Interpretation Comments CALCIUM IONIZED (BEAKER) (test 1.17 mmol/L 1.12-1.27 code = 698) PH, BLOOD (BEAKER) (test code = 7.44 1810) RAD, CHEST, 1 VIEW, NON [id number] 03:04:00Reason for exam:->chest tubes, s/p cardiac surgeryShould this be performed at the bedside?->Yes [facility] 1975 Sex: MFINAL REPORT EXAM/TECHNIQUE: Single view frontal radiograph of the est. INDICATION: Chest tubes, status post cardiac surgery. COMPARISON: Chest radiography from 01/19/2021. FINDINGS: Devices/Objects: Feeding tube course below the diaphragm and terminates below rljoz-hw-mlem. Endotracheal tube is unchanged. Left internal jugular central venous catheter is unchanged. Es ophageal temperature probe is present. Bilateral chest tubes are present. Lungs: Increased bilateralbasilar pulmonary opacities. No visible pneumothorax. Heart/Mediastinum: Unchanged cardiomegaly. Osseous: No acute osseous process. No suspicious osseous lesion. Upper abdomen: Unremarkable. Impression: Increasing bilateral basilar pulmonary opacities. Signed: Philipp Booker MDReport Verified Date/Time: 01/20/2021 03:04:06 [id number] 02:28:00 Test Item Value Reference Range Interpretation Comments PARTIAL THROMBOPLASTIN TIME 44.7 seconds 22.5-36.0 H (BEAKER) (test code = 760) [id number] 01:31:00 Test Item Value Reference Range Interpretation Comments POTASSIUM (BEAKER) 4.2 meq/L 3.5-5.1 Specimen slightly (test code = 379) hemolyzed Quality Control Associate ID - DBPOCT-GLUCOSE [id number] 00:31:00 Test Item Value Reference Range Interpretation Comments POC-GLUCOSE METER 107 mg/dL 70-110 : TESTED A T [facility] 6720 (BEAKER) (test code = [place], 1538) [address]: Quality Control Associate/Techni won ID = [id number] for Sadia Black HEMOGLOBIN AND [id number] 00:28:00 Test Item Value Reference Range Interpretation Comments HEMOGLOBIN (BEAKER) (test code = 7.5 GM/DL 13.7-17.5 L 410) HEMATOCRIT (BEAKER) (test code = 24.1 % 40.1-51.0 L 411) Quality Control Associate ID - [id number] 21:20:00 Test Item Value Reference Range Interpretation Comments MAGNESIUM (BEAKER) (test code = 2.0 mg/dL 1.6-2.6 627) Quality Control Associate ID - [id number] 21:20:00 Test Item Value Reference Range Interpretation Comments PHOSPHORUS (BEAKER) (test code = 3.6 mg/dL 2.3-4.7 604) Quality Control Associate ID - [id number] 21:20:00 Test Item Value Reference Range Interpretation Comments POTASSIUM (BEAKER) (test code = 3.7 meq/L 3.5-5.1 379) Quality Control Associate ID - [id number] 20:52:00 Test Item Value Reference Range Interpretation Comments PARTIAL THROMBOPLASTIN TIME 41.1 seconds 22.5-36.0 H (BEAKER) (test code = 760) PH, [id number] 20:36:00 Test Item Value Reference Range Interpretation Comments PH ARTERIAL (BEAKER) (test code = 383) 7.41 7.35-7.45 Vancomycin level, [id number] 17:55:00 Test Item Value Reference Range Interpretation Comments Vancomycin Tr (test code = 13.4 ug/mL 03-29 4092-3) CARLEY (test code = CARLEY) Quality Control Associate ID - ADMIN Lab Interpretation (test Normal code = 94885-2) [facility], [id number] 17:55:00 Test Item Value Reference Range Interpretation Comments Vancomycin Tr (test code = 13.4 ug/mL 10-20 4092-3) CARLEY (test code = CARLEY) Quality Control Associate ID - ADMIN Lab Interpretation (test Normal code = 12647-3) [facility], [id number] 17:55:00 Test Item Value Reference Range Interpretation Comments Vancomycin Tr (test code = 13.4 ug/mL 10-20 4092-3) CARLEY (test code = CARLEY) Quality Control Associate ID - ADMIN Lab Interpretation (test Normal code = 72448-1) [facility] CenterVANCOMYCIN LEVEL, [id number] 17:55:00 Test Item Value Reference Range Interpretation Comments VANCOMYCIN TROUGH (BEAKER) (test 13.4 ug/mL 10.0-20.0 code = 522) Quality Control Associate ID - [id number] 17:39:00 Test Item Value Reference Range Interpretation Comments POTASSIUM (BEAKER) (test code = 3.7 meq/L 3.5-5.1 379) Quality Control Associate ID - DBCBC W/PLT COUNT & AUTO [id number] 17:29:00 Test Item Value Reference Range Interpretation [...] H PERCENT (BEAKER) (test code = 2801) [id number] 11:58:00 Test Item Value Reference Range Interpretation Comments POTASSIUM (BEAKER) (test code = 4.0 meq/L 3.5-5.1 379) Quality Control Associate ID - ADMINPOCT-GLUCOSE [id number] 11:51:00 Test Item Value Reference Range Interpretation Comments POC-GLUCOSE METER 72 mg/dL 70-110 : TESTED A T [facility] 6720 (BEAKER) (test code = N[place], 1538) [address]: Quality Control Associate/Techni won ID = [id number] for FIDELIA MENJIVAR PT/[id number] 11:47:00 Test Item Value Reference Range Interpretation [...] 0-0 H (BEAKER) (test code = 413) [id number] 10:06:00 Test Item Value Reference Range Interpretation Comments PHOSPHORUS (BEAKER) (test code = 3.8 mg/dL 2.3-4.7 604) Quality Control Associate ID - ADMINBLOOD GAS, [id number] 09:13:00 Test Item Value Reference Range Interpretation [...] 1819) 40.0 CBC W/PLT COUNT & AUTO [id number] 07:00:00 Test Item Value Reference Range Interpretation [...] CONCENTRATION Adequate (CELLAVISION)(BEAKER) (test code = 3438) Quality Control Associate ID - Dariela OverholtUser comments: Slide comments:HEMOGLOBIN AND [id number] 06:48:00 Test Item Value Reference Range Interpretation Comments HEMOGLOBIN (BEAKER) (test code = 7.2 GM/DL 13.7-17.5 L 410) HEMATOCRIT (BEAKER) (test code = 23.6 % 40.1-51.0 L 411) Quality Control Associate ID - [id number]-GLUCOSE [id number] 06:35:00 Test Item Value Reference Range Interpretation Comments POC-GLUCOSE METER 92 mg/dL 70-110 : TESTED A T [facility] 6720 (BEAKER) (test code = N[place], 1538) [address]: Quality Control Associate/Techni own ID = [id number] for MESERET ETT, SEPTEMBER CALCIUM, [id number] 05:04:00 Test Item Value Reference Range Interpretation Comments CALCIUM IONIZED (BEAKER) (test 1.13 mmol/L 1.12-1.27 code = 698) PH, BLOOD (BEAKER) (test code = 7.41 1810) BLOOD GAS, [id number] 05:01:00 Test Item Value Reference Range Interpretation [...] (test code = 1819) 40.0 COMPREHENSIVE METABOLIC [id number] 04:56:00 Test Item Value Reference Range Interpretation [...] S NOT APPLICABLE FOR DIALYSIS PATIEN TS. Quality Control Associate ID - [id number] 04:56:00 Test Item Value Reference Range Interpretation Comments MAGNESIUM (BEAKER) (test code = 2.1 mg/dL 1.6-2.6 627) Quality Control Associate ID - ADMINHEPATIC FUNCTION [id number] 04:56:00 Test Item Value Reference Range Interpretation [...] code = 995 U/L 6-55 H 347) Quality Control Associate ID - [id number] 04:28:00 Test Item Value Reference Range Interpretation Comments PARTIAL THROMBOPLASTIN TIME 39.7 seconds 22.5-36.0 H (BEAKER) (test code = 760) PROTHROMBIN TIME/[id number] 04:27:00 Test Item Value Reference Range Interpretation Comments PROTIME (TAMARA) 18.5 seconds 11.9-14.2 H (test code = 759) INR (TAMARA) (test 1.57 See_Comment [Automat ed message] code = 370) The system [employer] generated this result transmitted ref erence range: <=5.90. The reference range was not used to int erpret this result as normal/abnormal . RECOMMENDED COUMADIN/WARFARIN INR THERAPY RANGESSTANDARD DOSE: 2.0 - 3.0 Includes: PROPHYLAXIS forvenous thrombosis, systemic embolization; TREATMENT for venous thrombosis and/or pulmonary embolus.HIGH RISK: Target INR is 2.5-3.5 for patients with mechanical heart valves.RAD, CHEST, 1 VIEW, NON [id number] 01:51:00Reason for exam:->chest tubes, s/p cardiac surgeryShould this be performed at the bedside?->Yes [facility] 1975 Sex: [...] Date/Time: 01/19/2021 01:51:42 RAD, ABDOMEN/KUB, 1 VIEW [id number] 01:51:00Reason for exam:->Verify corpak placementShould this be performed at the bedside?->Yes [facility] 1975 Sex: [...] Booker MDRjonathanort Verified Date/Time: 01/19/2021 01:51:42 POCT-GLUCOSE [id number] 01:49:00 Test Item Value Reference Range Interpretation Comments POC-GLUCOSE METER 121 mg/dL 70-110 H : TESTED A T [facility] 6720 (BEAKER) (test code = NORM [place] [facility], 1538) [address]: Quality Control Associate/Techni won ID = [id number] for DO KUSeptember POCT-GLUCOSE [id number] 00:34:00 Test Item Value Reference Range Interpretation Comments POC-GLUCOSE METER 68 mg/dL 70-110 L : Will Rep eat Test: (BEAKER) (test code = Notifi ed RN/MD: TESTED 1538) AT [facility] [address] [facility], 770 30: Quality Control Associate/Techni won ID = [id number] for MESERET DE SOUZASeptember [id number] 20:31:00 Test Item Value Reference Range Interpretation Comments MAGNESIUM (BEAKER) 1.8 mg/dL 1.6-2.6 Specimen moderately (test code = 627) hemolyzed Quality Control Associate ID - [id number] 20:31:00 Test Item Value Reference Range Interpretation Comments PHOSPHORUS (BEAKER) 3.9 mg/dL 2.3-4.7 Specimen moderately (test code = 604) hemolyzed Quality Control Associate ID - [id number] 20:31:00 Test Item Value Reference Range Interpretation Comments POTASSIUM (BEAKER) 4.4 meq/L 3.5-5.1 Specimen moderately (test code = 379) hemolyzed Quality Control Associate ID - ADMINHEMOGLOBIN AND [id number] 20:15:00 Test Item Value Reference Range Interpretation Comments HEMOGLOBIN (BEAKER) (test code = 8.0 GM/DL 13.7-17.5 L 410) HEMATOCRIT (BEAKER) (test code = 25.6 % 40.1-51.0 L 411) Quality Control Associate ID - [id number], [id number] 20:13:00 Test Item Value Reference Range Interpretation Comments PH ARTERIAL (BEAKER) (test code = 383) 7.45 7.35-7.45 POCT-GLUCOSE [id number] 18:00:00 Test Item Value Reference Range Interpretation Comments POC-GLUCOSE METER 74 mg/dL 70-110 : TESTED A T [facility] 6720 (BEAKER) (test code = N[place], 1538) [address]: Quality Control Associate/Techni won ID = [id number] for Ezra Gregorio [id number] 17:36:00 Test Item Value Reference Range Interpretation Comments POTASSIUM (TAMARA) 4.2 meq/L 3.5-5.1 Specimen slightly (test code = 379) hemolyzed SARS-CoV2/RT-PCR (Asymptomatic ONLY)2021-01-18 14:08:00 Test Item Value Reference Range Interpretation Comments SARS-COV2/RT-PCR Negative Not Detected, (test code = Negative, See 69982-2) external report for linked test SARS-COV-2 [facility] SADI PERFORMING LAB (test code = 01492-9) CARLEY (test code = Negative result for [...] of the Act. Fact Sheet for Healthcare Providers:https://www.[employer]/sites/default/f carlita/product/documents/F act_Sheet_HC_Providers_L ivg_PBNT-RvZ-4.pdf Fact Sheet for Healthcare Patients:https://www.[employer]/sites/default/fi les/product/documents/Fa ct_Sheet_Patients_Lyra_S ARS-CoV-2.pdf Performing Laboratory:[facility] [place] [address] [facility] (Asymptomatic ONLY)2021-01-18 14:08:00 Test Item Value Reference Range Interpretation Comments SARS-COV2/RT-PCR Negative Not Detected, (test code = Negative, See 88513-5) external report for linked test SARS-COV-2 [facility] PERFORMING LAB (test code = 51303-1) CARLEY (test code = Negative result for [...] of the Act. Fact Sheet for Healthcare Providers:https://www.[employer]/sites/default/f carlita/product/documents/F act_Sheet_HC_Providers_L esw_OCRO-CcQ-1.pdf Fact Sheet for Healthcare Patients:https://www.[employer]/sites/default/fi les/product/documents/Fa ct_Sheet_Patients_Lyra_S ARS-CoV-2.pdf Performing Laboratory:[facility]CoV2/RT-PCR (Asymptomatic ONLY)2021-01-18 14:08:00 Test Item Value Reference Range Interpretation Comments SARS-COV2/RT-PCR Negative Not Detected, (test code = Negative, See 64171-9) external report for linked test SARS-COV-2 [facility] PERFORMING LAB (test code = 35122-1) CARLEY (test code = Negative result for [...] of the Act. Fact Sheet for Healthcare Providers:https://www.[employer]/sites/default/f carlita/product/documents/F act_Sheet_HC_Providers_L sui_YQRB-XiL-9.pdf Fact Sheet for Healthcare Patients:https://www.[employer]/sites/default/fi les/product/documents/Fa ct_Sheet_Patients_Lyra_S ARS-CoV-2.pdf Performing Laboratory:[facility] [facility] [place] [address] [facility]ARS-[facility]OV2/RT[facility]PCR ([facility])2021-01-18 14:08:00 Test Item Value Reference Range Interpretation Comments SARS-COV2/RT-PCR (test Negative Not Detected, Negative, code = 6012255) See external report for linked test SARS-COV-2 PERFORMING LAB [facility] SADI (test code = 1664519) Negative result for this test determines that [...] 564(g) of the Act.Fact Sheet for Healthcare Providers:https://www.[employer]/sites/default/files/product/documents/Fact_Shee f_PK_Fbjsnfkii_Dldv_WBKE-MhP-5.pdfFact Sheet for Healthcare Patients:https://www.[employer]/sites/default/files/product/ documents/Ozad_Aysdf_Iuvegzal_Ysms_DZTE-IdS-0.pdfPerforming Laboratory:[facility], [place] [id number] 12:57:00 Test Item Value Reference Range Interpretation Comments POTASSIUM (BEAKER) (test code = 4.0 meq/L 3.6-5.5 379) POCT-GLUCOSE [id number] 12:40:00 Test Item Value Reference Range Interpretation Comments POC-GLUCOSE METER 81 mg/dL 70-110 : TESTED A T [facility] 6720 (BEAKER) (test code = NORM [place] [facility], 1538) [address]: Quality Control Associate/Techni won ID = [id number] for Bent on, Gladys Sputum Culture + Gram [id number] 11:19:00 Test Item Value Reference Range Interpretation Comments Gram Stain Result 1+ gram positive cocci in (test code = 1123) pairs and clusters CARLEY (test code = 4+ Normal respiratory CARLEY) mendy present [facility] Centerputum [facility] + Gram [id number] 11:19:00 Test Item Value Reference Range Interpretation Comments Gram Stain Result 1+ gram positive cocci in (test code = 1123) pairs and clusters CARLEY (test code = 4+ Normal respiratory CARLEY) mendy present [facility] Center[facility] + Gram [id number] 11:19:00 Test Item Value Reference Range Interpretation Comments Gram Stain Result 1+ gram positive cocci in (test code = 1123) pairs and clusters CARLEY (test code = 4+ Normal respiratory CARLEY) mendy present [facility] CenterPUTUM CULTURE + GRAM [id number] 11:19:00 Test Item Value Reference Range Interpretation Comments GRAM STAIN RESULT <1+ WBCs (BEAKER) (test code = 1123) GRAM STAIN RESULT 0-5 epithelial cells (BEAKER) (test code = 412909) GRAM STAIN RESULT <1+ gram negative rods (BEAKER) (test code = 088354) GRAM STAIN RESULT 1+ gram positive cocci (BEAKER) (test code = in pairs and clusters 899074) 4+ Normal respiratory mendy [id number] 10:15:00 Test Item Value Reference Range Interpretation Comments PHOSPHORUS (BEAKER) (test code = 4.7 mg/dL 2.3-4.7 604) [id number] 10:09:00 Test Item Value Reference Range Interpretation Comments POTASSIUM (BEAKER) (test code = 3.8 meq/L 3.5-5.1 379) [id number] 10:09:00 Test Item Value Reference Range Interpretation Comments MAGNESIUM (BEAKER) (test code = 1.9 mg/dL 1.6-2.6 627) RAD, CHEST, 1 VIEW, NON [id number] 08:45:00Reason for exam:->pigtail chest tube placementShould this be performed at the bedside?->Yes [facility] 1975 Sex: [...] MDReport Verified Date/Time: 01/18/2021 08:45:59 Reading Location: [facility] Radiology Reading Room [id number] 07:01:00 Test Item Value Reference Range Interpretation Comments MAGNESIUM (BEAKER) 2.1 mg/dL 1.6-2.6 Specimen slightly (test code = 627) hemolyzed COMPREHENSIVE METABOLIC [id number] 06:55:00 Test Item Value Reference Range Interpretation [...] APPLICABLE FOR DIALYSIS PATIEN TS. LACTIC ACID, [id number] 05:22:00 Test Item Value Reference Range Interpretation Comments LACTATE BLOOD ARTERIAL (2) 1.0 mmol/L 0.5-2.2 (BEAKER) (test code = 2874) HEMOGLOBIN AND [id number] 04:50:00 Test Item Value Reference Range Interpretation Comments HEMOGLOBIN (BEAKER) (test code = 8.4 GM/DL 13.7-17.5 L 410) HEMATOCRIT (BEAKER) (test code = 26.9 % 40.1-51.0 L 411) Quality Control Associate ID - [id number], CHEST, 1 VIEW, NON [id number] 04:47:00Reason for exam:->chest tubes, s/p cardiac surgeryShould this be performed at the bedside?->[facility] : 1975 Sex: [...] Krishnanepting Verified Date/Time: 01/18/2021 04:47:41 BLOOD GAS, [id number] 03:37:00 Test Item Value Reference Range Interpretation [...] (BEAKER) (test code = 1819) 40.0 PROTHROMBIN [id number] 03:29:00 Test Item Value Reference Range Interpretation Comments PROTIME (BEAKER) 22.0 seconds 11.9-14.2 H (test code = 759) INR (BEAKER) (test 1.95 See_Comment [Automat ed message] code = 370) The system [employer] generated this result transmitted ref erence range: <=5.90. The reference range was not used to int erpret this result as normal/abnormal . RECOMMENDED COUMADIN/WARFARIN INR THERAPY RANGESSTANDARD DOSE: 2.0 - 3.0 Includes: PROPHYLAXIS forvenous thrombosis, systemic embolization; TREATMENT for venous thrombosis and/or pulmonary embolus.HIGH RISK: Target INR is 2.5-3.5 for patients with mechanical heart valves.[id number] 03:29:00 Test Item Value Reference Range Interpretation Comments PARTIAL THROMBOPLASTIN TIME 36.3 seconds 22.5-36.0 H (BEAKER) (test code = 760) CBC W/PLT COUNT & AUTO [id number] 03:23:00 Test Item Value Reference Range Interpretation [...] PERCENT (BEAKER) (test code = 2801) POCT-GLUCOSE [id number] 01:17:00 Test Item Value Reference Range Interpretation Comments POC-GLUCOSE METER 80 mg/dL 70-110 : TESTED A T [facility] 6720 (BEAKER) (test code = N[place], 1538) [address]: Quality Control Associate/Techni won ID = [id number] for MESERET ETSeptember [id number] 22:01:00 Test Item Value Reference Range Interpretation Comments PHOSPHORUS (BEAKER) 5.1 mg/dL 2.3-4.7 H Specimen slightly (test code = 604) hemolyzed [id number] 22:01:00 Test Item Value Reference Range Interpretation Comments MAGNESIUM (BEAKER) 1.9 mg/dL 1.6-2.6 Specimen slightly (test code = 627) hemolyzed [id number] 22:00:00 Test Item Value Reference Range Interpretation Comments POTASSIUM (BEAKER) 4.0 meq/L 3.5-5.1 Specimen slightly (test code = 379) hemolyzed PH, [id number] 20:14:00 Test Item Value Reference Range Interpretation Comments PH ARTERIAL (BEAKER) (test code = 383) 7.49 7.35-7.45 H HEMOGLOBIN AND [id number] 20:04:00 Test Item Value Reference Range Interpretation Comments HEMOGLOBIN (BEAKER) (test code = 8.1 GM/DL 13.7-17.5 L 410) HEMATOCRIT (BEAKER) (test code = 26.0 % 40.1-51.0 L 411) Quality Control Associate ID - [id number]-GLUCOSE [id number] 18:31:00 Test Item Value Reference Range Interpretation Comments POC-GLUCOSE METER 81 mg/dL 70-110 : TESTED A T [facility] 6720 (TAMARA) (test code = NORM [place], 1538) [address]: Quality Control Associate/Techni won ID = [id number] for RONAL BROCK Tissue [id number] 16:48:00 Test Item Value Reference Range Interpretation Comments Case Report (test code Surgical Pathology = 104) Report Case: [id number] Authorizing Provider: Trey Galvez, Collected: 01/11/2021 03:53 PM Ordering Location: [address] Received: 01/12/2021 08:17 AM Pathologist: Fredi Hermosillo MD Specimen: Mitral Valve, Mitral Valve (send for C/S first) DIAGNOSIS (test code = n4kmvTAgOYOxk3nsKKQbcH 3220) FuZzEwMzNcZnRuYmpcdWMx IHtccnRmMVxlcGljOTIwMl wensEvMHEmxPOvG0Preqvh LEvgBR6cIM5dxHqvkUApuK UcJRXwOuLbn4ujc536cNVv z8xiOMYEgszymEt5hJxqF8 6ho3D7YfcyC46bnDNaIEgc bGFpblxmczIwIEhFQVJULC BNSVRSQUwgVkFMVkUsIFZB VLTBECQQXJ2GLDsiuAWbVZ LLEmXLUk9ETOUCKIQPLFVT ELiTVAJQOR8CYSUYKaPDBW 2BVfnoPOBBXY0DZfKGTNNo FiRAYFOGFDKUMLIDU9NDYX BhciBMRUFGTEVUUyBXSVRI FFRKP4ALNE2UIAIPPBZKZN AJGKMLDzpFXKXIORWNC8NE KIGPM9CWMsVwoGDhrJhuhy JxHFixs7OoXBskOEWeKU1f sUgeIHUxQB1eELOwJ1kguB 8iydx8LiVxQYSiUgD2BYBe iqN8Pbg6HLWhXWetp0qne5 DdETRdCWx7wTflUpPkXLWr a2ygtrUmRdZyYGSgDXBvMY LboWZeL450t4hfl3gfrtCx uAZ4NZPfUCJ9VBotebGpii M4GWodwASvVnA5LUwrskBl ESmqisFsbnUlBgx2VGOcL1 27ZSN4lRdvj0gkZAW1TFSx REXjYyNuWs4zuAClS836MA SlNGZMLQCxgYf6QYLtxdHb bwWwxBJOz139Y394e4odKC ZpimZpgSqWdhfzz2ptL595 XHBhcGVydzEyMjQwXHBhcG NrjCO0LIXtQJ5sddkqNPft HLrxPYSembM4GZWkzLXzL6 DwOXMnBS6zlkfgCFK6QSmz IZPsPZT8BnDkHTGgq2Wmqe i7VtUfja2ngl49FKL0e1Bf mUuaDEA0IZC1PjUwYm8tpD SlDYPwNC3dFqFkbJCoDCCh yg69dYcbQNieCWL6SGDezf Mqi3Qfg2kwSnLontBoO4bv B3RvHDEpLGKwYJRjVxSfzp Ibt9Eqh1AwsGAphYz4d1yj OEBtZUKxeImcv2pmPHV4KB GpsIUqE2mqmT7nHLTjBS8h csxop8imYRypBKrdAECduJ J7huT3OKOjzVTyU3RfgW5n SDXlMWvjBJKlvqd4GzFtWn 9vdGVyeTcyMFxzYmtwYWdl XHBnbmNvbnRccGduZGVjXH BsYWluXHBsYWluXGYwXGZz MjRccWxcbGFuZzEwMzNcaG ljaFxmMVxkYmNoXGYxXGxv I9udDtOcYpDfIzz5HUHooP WyNHSqKks4VRIbhLAcYZZW wBiuzB3rMNYdnNrhvD5yoX C8IUXbouKbmEDHpR6cYYTH pK3dLtE0FjNnDcG4OBx9QP FccGFyfX0= COMMENT (test code = i2ovxVBvVOMauEZ1LjCxUR 3359) Npo3par3HpkADniPSnAHwp bJPgphDsrk19pAG5dP45ZB 8lXEZjSzJ7VNDuavP8Cvy4 DZJvLMNutULvK055u6sau1 xvzcDfcXE5tOkiYDXqVKKd YWluXGZzMjAgVGhlIGJhY3 EwgwovDSDlotIzsM7mSRDf lhN8gQKnvmNrCXAydOurfi RnyhExWRJuNM4vdvX9BMOi QJ3jTIPtzpuwEda4QED0WD cqeG5sKZvttAnxxQwtk1Ed SIpdTO7uCZC0WHvvpbTdqq AoQ56FRBB5HGaeciqcApM6 UXSeMTJaiqWlk70tpvBnpY Qpu8FtmC0mu0q1FMekJOWr HKEoc7ZlD00rQ1qbLSvhOX J9 CPT Code(s) (test code w7rmtJMrRVUqdCE0RbYkCY = 3357) Swr7dio7WrqRMixOZmKTgd uIMoukQfsd51wJN7iB51ZN 2yHRZgJyX3FGJwejE4Xwz2 RMDmXTEnkHByI628f7jhx1 dmedEweYF1wBceLPPiPIOq NZnyHLTqBfFyWVizEMF2JT u7TfLfWUusZ8tfWNO3 CLINICAL HISTORY (test m7vnlRJeZJNfnCB4NeZlML code = 3356) Max9tci5OuqHKomUNfFDgs oDFlfrLmki05zLX0kF48OO 6iHJKhTcR2CKXtafT1Klc3 MDZqUTDohSRwD790w1jpx0 gzbxNwuWK9oJllWXLuYKKm WYhwIZUpZqGhFT9uo3Tpez AhnFlnRU4tYU4wmUNqtJN8 MIm3VTXxmNLhnM== SPECIMEN SOURCE (test n7yfaRBvNJPwcOZ5RnZySO code = 3377) Rof0bhc0YpcRLmqNFsSVgf hPGhmqSlqw30gOY1xV35EO 5fYLSgUhE2UEPmraO0Xuy0 QXKjQFVbsZGuN793f3wvb8 kaybChmNZ1nUncVNYwVNPz TUiaHNFwMpWbZVy8cjZyEX ZhbHZlIFxwYXJ9 GROSS DESCRIPTION (test d5nqwGWrIPPduXTzXdPgLP code = 3366) WoHTPne6dhWKDllYXtDmGy MzNcZnRuYmpcdWMxXGRlZm Slu7dup157vITcs2uxQHGT yssvqGb3w4unAHOsIfI4pM MoQJzxA7dpfjTrlBMxFHCy ENw4gJ90WNZuxJ6cwTLtAD wkafRgOlJ8DXdkMRVoGcC4 WLTolURbFPPyC4imBQPiCK reTENpPNdxxVKbSLK1nDpt z9U3hFVewYAdmKnjAzTaDq YySZYNg0QeQWq8pNzqP3Ml LYJfHiP3xVEcEIOcNVpdSD JcQELytsX6gS53MKsroyF6 sCQan0Yqz55ax418pW8ajY VaQBM6KOCgZXFdvHRaETBc YAD8BXVrtSVsT3u7LtFtfQ EpZ1Y8RoAaaGXeX8F8TzAn gKJyG5Q1PpUymXTvVNMdwY JaYg1ssSHvhIHgeg5ffr60 TBO2r3WiyBygHBK6HCZ4Hu RzNs0ptSVkMSJtPQLqoCNc IDYnCL6eoEDjZLGzbZ3eyd xjXHBnYnJkcmhlYWRccGdi xuJkKb7dfFscPVO6VArtK1 rxrY2mYlF3JOotK3smnY8w GUi4EVcqzDR2LTMucM0mBF 6itlwyt8mmEkQrTP1uqrcf q5hnVgWkOC8jboh5u6gjQi BtVC3husxbp8ghLsSjLHtm LPPxsrrpSUEwk7JdayfvJA Wmj5QdF6PvdPswO22vtZrd T42gBSZssOajlR1mvPomiX 5cZjBcZnMyNFxwYXJkXHBs YWluXGYxXGZzMjBcbGFuZz EwMzNcaGljaFxmMVxkYmNo DFEbDAieF1jrPgSqBsWgQH BSZWNlaXZlZCBmcmVzaCBs YWJlbGVkIHdpdGggdGhlIH FyrHqcmkFjgqAzYO5cICAe DDBvG7NiMZGoK87fKQIkkR 1iZXIgbnVtYmVyIGFuZCAi jWp4zrWuQPFenQDzVpJqub HfDKBySPP8VOEzFAZ0ZCFs HQNcgDVzT4wsLIooxPUir9 YgdGFuLXBpbmsgdmFsdnVs BYCohBaln6WqRRcwxJvdHP W2YMEqGALqX0Oqf5MpxCE6 cdVpxASic6XqsLEyB7fqys KxEHS7ZM1ewM5vWL9kCRfc IHNwZWNpbWVuIGlzIHNlcm mclWo2GOGbX5Lbl59gQOR9 opFyFUAkYDddYsSpF5j2JE traWknayW5dkE1RO1wPICg vf0jXBD1eBOqaWUlRODitl Q7oACfBNKkfLPzQuxcTJYb i38eOJ2iZEB4alouGgF4mB D8vcNuGqTkM27dPFRciSZx d9EsvYR2fWZeRQWmH5Gvd4 2fKDNxKESnuBMdiQK5HTIp tX2rZ4Lhp0H2oOIzJTZmLv 8bzF16lH8wXLSauRLaPZHv H1VoN7kobMShkXiglz2oDG aNT2E8XTCzyl7= MICROSCOPIC DESCRIPTION q3vtmDPwCLGmlQK6LyVgSS (test code = 3371) Iim8oja5UjyPRuoWCnATmd nZCiesJsxy54zYR7vH68HA 4kYKLgOwP9KKGotfT9Sif5 PCEtEMSaoXOfO778l2pkm6 yvqaPmmZZ4wAutHBJcCEDc RCxmEBZzJaEcRRGqNk3ykL VkXHBhcn0= SPECIAL STUDIES (test w4rzgRFxGMCmy2lvQYEexI code = 3376) FuZzEwMzNcZnRuYmpcdWMx DRptvyDfAKuwm4PqY7PjZn AwMFxhbnNpXGRlZmxhbmcx ZHMrRBI8ygQuDVBnOIazER JfCXwwPl8alXRhmDdkQuTs RVKta2wwflYWwqfboTd8n0 zqXEDlHgX9yYGkKJpvS1qm epZprXTqG9JxfBFnmHk2t6 itAiYiTmW2sCEnCKenO9ox jiSovNQmYEZnSYj5cW35FK LnkV9joSJyUYnrdkKyHsF9 RMjbIYRaDdT7MBUdwHXkLF NhV6evFXAqLArsQISrRDkp hATwCDB3ySezh2U4wQRglI ImyIwrQgFsQmQbJzMYv2Ft VBd7hEkzF2KvUFMlTnL5zZ QgUGFyYWdyYXBoIEZvbnQ7 jJzqikAha45goXUrIOIlCP NbGdUhhDubWIRsBHSGl0Ae aSvsUWH4cPl7hNzsTkhpJC E7Rxy2XT8wbx08xjc1vCyr PBUajolzFgO5VOlpIALpdh yxZLo0CYvqJVUsuRE6XBNr tVWkU3UbJCDmKD1fnmh0LJ A5KSrmUVSlJnI1SRSdjEDj FMQpmVkhCYzlz871MKI6Af CaDD0yD6Byo0Y3lF2xdGIo GWAlwZWwOtNbXUMwvu8cbI XdKYrtm8JzRIL4khP6nUSn ySUgFIOcJY01Htzer1JgQf kuz5OvE31inLG3IDzev6xh ZV6nEeJ4pmTmGRmmf6mssJ 2oNpR9OXljDI5uLR0xVFVv kP4xduyjKKXpOoJryclqRD VrdLybcgYlAs2ppAvrYQI5 LYaxM9erlD8gGuX5XTreG7 catW6zSAy1XTdofIG5HCBc pN9wLN7rwbfsq9xmEWkfMQ fyIGNsemR8bbH9CALbmUBh Y0ImtQ8kUJNtIM9qitjij9 twSED8XXfyMGCyFBQ6QqRu SMStl1Ybtdt8AsCkw6TyfL KpJEvrR50ke382CGVthcXp H7lqgIPmnkjbhYTiuhnyCR lobnN4MUIoUIJlVAosMVTh XGZzMjJcbGFuZzEwMzNcaG ljaFxmMVxkYmNoXGYxXGxv M2oqYcCpB5JnNNHfKpEvNG ppARqevYXdcBRuiBX2hR1u CS3iHHShfNKbR1QmYBYkew DamZXkQGH6oITlqMRyBO5u PRxpkKEjo7ehu9HmN1gehX sysCA2JE7hYOAhGIZtXVdg c4TxeL6sFrlkiNYcgulsIU xmczIyXGxhbmcxMDMzXGhp C3fcXwOkQBFygLjfOUnon9 NoXGYxXGNmMlxmczIyXGx0 cmNoXHBhclxwYXJccGxhaW 6uDkVnDwCoJdawIV9cXKIg Z9kaaIKyLFSuPYQdT4wwZh QdeX3bxUlwBLbrDdPzYaOs EuEWf521qx8kSKSgbRYgcx XAgVLgaZ1xNPgzGQuoWZgq hIYvAPelm4zgFQElc0w2uY TrKFWvlhHrp2rjIRawrmWe UYMwgJDfyGKhKPHvc15tGZ nltHmrvRhsCDVtm8SfhKfg b2KnYgDzAFmlo6OdT93wcK JvbCBzbGlkZXMgcnVuIGFs y07wt6yaJPNaWhF3vDRbzA R3iBMgoYEey0DhoLufWSQh c0nnTUIadv8ukkeqlPLuw0 DetE2vzikfBVyevAUzonIv YUSjo0r4gTUtCEMxWLZcYM gprEy0SBJeo986rr8qaxJ9 nCRtVON9MWgsRVSaLDNdyc UgZXZhbHVhdGVkXHBsYWlu XGYxXGZzMjJcbGFuZzEwMz NcaGljaFxmMVxkYmNoXGYx AWotZ8wsTnPhM4NxYFMmTn ZkhECaO6onsEFuFJZdAJxe XGYxXGZzMjJcbGFuZzEwMz NcaGljaFxmMVxkYmNoXGYx RUxrN9luCmXtZ4CvSKCyVd IgIFxwbGFpblxmMVxmczIy UDmopoqoTFIxIEsvN1jjUv DbYBXqkGojHBxyi6FnRPXe XBSdYmlklpUkREp7bpHtHY BhclxwbGFpblxmMVxmczIy GYmvvhhmYFSaYLkdO1exOc MjLLLheTbaFYcpe8ZxFJMx XGNmMlxmczIyIEltbXVub2 dhr7UiJ9ykcXmrcPD8CMNl Q7izbHIdhZP6ZSU1kM5rVN goneAoLFRvq9FwBVBmQWSh XwE9bR3hDNC4GkZLbZoeGX BsYWluXGYxXGZzMjJcbGFu ZzEwMzNcaGljaFxmMVxkYm NhRSSlCEdoV9tsKuBwW0My YLBkYaVzaWxnPWneNAf7Ec xwbGFpblxmMVxmczIyXGxh ljkuVAVfWNaeT7shQoHfGI QexPllLFhjq4SjHDZeTZZv MlxmczIyIHMgTWVkaWNhbC WYQQ58DBWfLXCicEnrkS0s oYLJMDVytjY7r8G9DDijLX VzHNk2BFxjqtIfRNDjtR6n YLOoGY6eIAv4yxHhKYDll2 LzLT1kYMNfsBHfOTH6OCBw w5ZgH0Xgl6JuRHYrNJMfvj 2hlqGhSlOSqSJuPKQhql98 ZZXdWI0oC2axCYEtRPHfqp KhyITos4IbDXNrnNB1zXNj NN5JPnBRm18jTYLuYFNElb UeAFZvnHwpnXV5goR9sQ4z LiBUaGUgRkRBIGhhcyBkZX Fxty4tieQmWTByHLKld1Ba bYAdfOQerxGmK0Tkh1WeWC Qawk04FUknaGSezq12YX9r Z0Ajb7RchI7cQPnzPSXzs2 KhjFFnhTFwERHgx4SwP9du ytxkDGksiGXymV0oMSFdJP q2DWTzn7GdJJVbd0TyCuCk srZrPVLeHLDiTYHqcJ02HU S7uYgfvTmpfiStVD6oCKNu doPrWTVhWEIeiA3xQCmyep LkDYSixsK6a2D1DDoeOTWm mdVwZeqlZGO7njGoepC2oW VtL6cjwhbmELviWNVon6Ti zN2omDAYtVQep7NdfZAdiL VTuFVcOQ8mebVvPF8pBTV4 ODggKENMSUEtODgpIGFzIH W0WLcoUctgNQK8yaYmWKCi d2DxCVxrQ6hzM44inDyxnE v8tEUqxIesnDHnkJDvZLGn kzI2z6W7LOWqy4TfqyqwWZ BsYWluXGYyXGZzMjJcbGFu ZzEwMzNcaGljaFxmMlxkYm YoEOVtTEbbW7avPoVuQhTp QlttFXF5mC== [facility] [id number] 16:48:00 Test Item Value Reference Range Interpretation Comments Case Report (test code Surgical Pathology = 104) Report Case: [id number] Authorizing Provider: Trey Galvez, Collected: 01/11/2021 03:53 PM Ordering Location: [address] Received: 01/12/2021 08:17 AM Pathologist: Fredi Hermosillo MD Specimen: Mitral Valve, Mitral Valve (send for C/S first) DIAGNOSIS (test code = [id number] 3220) FuZzEwMzNcZnRuYmpcdWMx IHtccnRmMVxlcGljOTIwMl sruxZfSFSmxLZjK4Iooall LJyxMH9fGI4zoRudeRRbjO VjLTWnNgKfl8uom672xOQr t1axCSATbknlbCo0vGgiZ9 2jm6O1BdfhC92qmNVbHIuc bGFpblxmczIwIEhFQVJULC BNSVRSQUwgVkFMVkUsIFZB RNOWGDOKCI7YXIzdfIQhPC KFZsDDQk9YACIJZPFCPRZQ PYrEOLASES6ATATZXfCKWL 7WOswxGJAFXI4EPjXLFHLk BfSBGMNLRGAYPFHFR7EWLP BhciBMRUFGTEVUUyBXSVRI ERDUQ8BZHV2ZFCKHRXHBMC SGEPOXIarUHWQYOULON6AJ EWQOT9AQIoPusTMnoDzqhh EsHJtvd7EuMQaaEIRmGF3b kUmwNFGxZL0xMIYcR7rjiG 4ajvw2VtPxMVMzCkM2XYRw cpA9Rmk6QAQtKFqev8pil5 XvTRNmTOm4fVklFyDyFBWm l4mpzaEkCuOcKECdYRNiOU HohWQhD770c9tak7rvjrRa bYI0KNSlYQH5DAugdmHzuz Y3COknmGYuOpN1PWtabtCp BUbtqhIcxdQfUgu9MXVlL9 45GFY4qZwgf1kiDSD5JUVr PJZvOqNdQv9ldHHrN416SE WdSFVPSTPmsVw8BZXesrQb crZsvMERi177O807o3nkBU IjujGwsCsPlztbt9abR906 XHBhcGVydzEyMjQwXHBhcG NflSH6GLRtBR2tctqwINxi QIewXWZqkgS7BAVxaEYcY5 BrUUSbTA2rfwjnCXF2PPav ZFZoWMI2FmAmZHVsw9Vhdq p8PsIrjr8rfh07FYP1h1Dz vEhmUZE3IHY9GhDrNz7lfG JeXQAlOM5iCiXevBIpSVEu rr29hGiqZDopSIS4ZGJzxw Zgz5Umx6yaKiCjfeObI7ww L2ExQAByUSXiQMBxMoHlkj Tak0Mey5ZgtXBliWj4a3rf YKMcIKTgeXqto1vaEWF7VU HmpIMgS5pbzM7nOQOnHP1c beava2vaSWhvUDohQPKbtU B7wwG9SPGghFBeZ0DhrU4a JVOqKDlnKPHnhfs5XbZmLt 9vdGVyeTcyMFxzYmtwYWdl XHBnbmNvbnRccGduZGVjXH BsYWluXHBsYWluXGYwXGZz MjRccWxcbGFuZzEwMzNcaG ljaFxmMVxkYmNoXGYxXGxv P0iwCgYkSuVxHnw9UWXueA IrMZHwIms9AZTgfBAkGXNS lLtvuY9bIBHypBwzlD4zkM V7BHLqehYvwSYXxI3eHNKB oV4zEmN6SzMbWpH4JMz4GG FccGFyfX0= COMMENT (test code = o6cbxZSvQEUuiOU4YyYbHR 0321) Vwn5tsj1MyvTSqvHVuXLqq lKEajqHvjq62zMA0kO16PQ 5vFYQaVrH5XVRwutH2Cvy3 YBVeVGOzaMQmL426g7ner7 hvwfJflMF9lRusHQUgIFLh YWluXGZzMjAgVGhlIGJhY3 PwthfiWCSfspToiL1qVGVy zpW8cKFllsGlFSAfnEjdyh VpafJtFDTxCB8dluE9QBSa AN6kDKSkzbaoKnn5ROH2BA uroY3iHHexrNejvOiar8Nk KAjuYQ9nUXR0VKtvbuGodi IaF55ZZCV1GMhhgelrJsU7 VJPjQGXpppMct40ygpFpdA Ise8CefX9lq3f1GMlnPCNf SXCfo0GuH47tU3csZTfvOW J9 CPT Code(s) (test code a1iyqVFzOFSybCJ5TrWuSO = 3357) Fnx2rba3FmyUVueXTfCCxa aXDnimBqwt65uNC6oR40NZ 3xBUFdKdB2QDYamwD5Nhn9 HFVhEYTdiASmQ010b1dlf0 pvucLjvZT9ySllCWRzMKCg WOryOQArZdCfGCeuISE2FM j9GuQvIMxgH2qrAHE3 CLINICAL HISTORY (test x8moeDAjPDHoxJL7WwXkXJ code = 3356) Haw8ssn9LpdKPppLQrBEow kXEzzuInsk62wWR1mZ69HI 0fVWQrNcO9HCDtgwF0Wbf9 BZVxJJQeqGUdM112r8kjs9 bgvnVtyWP6tXjsMPNnTHNx UOwaHKIcOrRmRG8ij3Huxi PgzMaeJN4xGU2zaUNniSA8 MUo3OTBcyAGqeU== SPECIMEN SOURCE (test h5efoNBzDOTouFA1JqCoGX code = 3377) Knq8tdm4RejVXtoWZtQRam sSVribRaxi34cES0tK53ER 8sSDQwNuC7CHHgvfE9Xuf2 QAQgESGawGAgR339e2mji4 wyuhBtwCL1rHiaQWUzWPWt YIjvEQJyYgNbKUb7nzYhCY ZhbHZlIFxwYXJ9 GROSS DESCRIPTION (test b6mfrMAwOFUhtIFkOiSmIV code = 3366) QbIDMpv6jxCZXvoCOlKlKv MzNcZnRuYmpcdWMxXGRlZm Urr3mtr332jZZlg7llOKUZ zpfftGw2z4ugQKCtTkV3aZ BhOGmyT5amfwBvnHArMLIe QWw7aJ57SNGkfL3rxUAdEW tzihCdFuS3QOtmRPZdAoA9 PZWjtSIsEHOkT8xwGZTuAN cwIKUmARtejMRpTJU3tVwn u0V6uNHmsZOwjGfaIxJrMf FrWAIFa6ZiFBn7pYpiN6Wr VELzVfG8kKTkZIJcJRkiRX AuZPFafpK7sS48EVgbqvQ0 zXXrn3Wli04wm295yV5awZ EkMLW3ELOxZNDgaDOmKVGb TFG7NCDedFJhY2n1XiDeaA LwM0F3KdVzgXCoI2A6ZbWa mKJgH5Y7ZmJwaXYeDWHzyN YuOo1stACcvCZeqf2bvs39 LXY5v6XcrFhkQHK0PHO8Ct ZlKk4lnWPbIOOoWUAtnDRr BZTzUW9ziQGxYIUbtM6eqe xjXHBnYnJkcmhlYWRccGdi zfOeZy2paVnyDXA3JXmyD2 znsY5qWwT2OLztC1nxrZ8p HHs8HXhrqUH1VSCeuA1bTY 2qlxvpe7iyZvHvYE7fyekn p1xjHqXnYY8osnx5d6knIe DaRM5tpvppf3fhKcEbQKho SOZaqjwkBISbg3MdhhpmOV Ywm2LhY5IxxGntK76dzGzj P10oWEHqxMxhzQ4taUiqrK 5cZjBcZnMyNFxwYXJkXHBs YWluXGYxXGZzMjBcbGFuZz EwMzNcaGljaFxmMVxkYmNo OVVoFVqwV8rtVySoSqZjTN BSZWNlaXZlZCBmcmVzaCBs YWJlbGVkIHdpdGggdGhlIH ByvGavnlAzteKtTR8hGIXa SSKbR1QaDCXyW32hZXXjjY 1iZXIgbnVtYmVyIGFuZCAi iMr1rtRuNKJzoRGhCmXbza OsTJLtJAZ6BMGpRBK7KAJb MOEosIOaG7fdHFafeYUpc4 YgdGFuLXBpbmsgdmFsdnVs AVMayGtkd8PlPHzlySkfPQ E0AWMeWEFwF3Uyn5DqyCB1 rgSqyQOqs2VjaAEfD6tdym TpYYZ3ND5yqS4dHS4rSTnn IHNwZWNpbWVuIGlzIHNlcm kjjMk1ATJiU7Drl25kRTP6 rwFoCWKlTDlzWwOpE9e8WL wcqGizhxL6zpC5ZN1oZIOq sn5bYTO8tSEztZCfSYRrdw U9oNTnXFXrmLAoPolfMVHk o72mXO6nTDL9jajkAcB7uM L8zcJbBqKcM30tZVNzzTNu e3LfcHJ1vEKtPQZaE6Xnf7 5fVTCtHLRapBVkeKJ6NBSb nO5tP5Vyf3R4aNHsMZAaYk 5gkL07yD1sCHYeeLVdYVDx T2PgK8cvvHDmsVxzkn8vAT eBC4N2YKGczf7= MICROSCOPIC DESCRIPTION j2iloZRtCYIirIT0OrQgUQ (test code = 3371) Zmh5pyb7IwbYOwtMXlYDom iNVeuoRauo32jNM3tZ77EW 5xHKCkOzU9FRKazgD8Biy5 BLRjIWXotXMpY871l5iko8 hkmwReoDU0mTtuLXXgAGLm WJxcBMTtUkZkBPIaWi7eoG VkXHBhcn0= SPECIAL STUDIES (test l8lmyRAkOZAhh5vfKAWsiF code = 3376) FuZzEwMzNcZnRuYmpcdWMx THaxlbLvLUvyu4EeC6NwHa AwMFxhbnNpXGRlZmxhbmcx WWXrVTX9dyKhFKEqDUvaVX PuPVctEe4wfCKbdPlpKhGj YASdu0faffIBnifzgId0h0 ljUWUpDgN7rZZkKHpsL0ee arWwyWTwR5AcnVSwtFj0g5 mmPlJoRcG8fOKfROcuJ0kg wxVjkFTdUIGaRSl7yC46NL VroM1hbCWxBOlmflSpYrZ6 JZzlHWHsJiC3TWTyrQDaMG PrS1zpPWDsJNlbHVXzRQqz aCUeXWE2nUtmf6Z3rNJynT YrgAojWdHeQhGyPqVJk1Nl RSf6cNcyF5TyVLSwWwS8fG QgUGFyYWdyYXBoIEZvbnQ7 eTqyxoGzo27atBNzCQXiPQ MxBlIkzMquCMWiPCEJb6Qg aIszJGT1uBi2nIlrRjprLE P7Phl2DI8ciz46ifq8sOyx OKJzxtyiJwW9BPzrEBQulm gjHVt7NMrlQXDjyVF9QLPv aVBjJ5VtDPShGW8ytzh9TF J3YBrqKRIrKcK2XLNqeSNj QPGmiSveMNdqg746QVE2Sm SxJE7yY6Cgf3R2qM0pyDDl JEZixWAaHbTuENCryd8yrV YqXAfss8KfMQG4ncM3kDWe oOSjVCZlSC02Hlilc3ZhBt ihg3YoF51wlMY5SYdrf4jx UR5tMaT5jrQeQYlcm9ncjN 8vVyW6KXdgCD5mHL9eNADf eE2mpjngOKSdLzRyhwqnQU ApnMhzsxTtHd9yqVbmPWH5 ZGvsE3wqzP2iQpD7QQmvZ0 pibI6sMOw7YUqvtZU2OZYe wF0xTS8pvlssn9azFHwqPH lnOJVsfcR5ksO3XXPhpBRb N3TshN9tAXJkDV8ttqzhf7 gkQYD0EUkpDPTbOKU4MpMx WODsa3Niksd3RbWuw4LpdN OfYIgpP35fj016BOPrwoFy M1qrpRLkqskobUAelejnFD flmuM3JAOwXWLwLMzwFJCy XGZzMjJcbGFuZzEwMzNcaG ljaFxmMVxkYmNoXGYxXGxv T3zvMhPmS2IuXTSwZwIlVJ orBCmlhCTzwUOecFV0oO5b IR7pNWWwoVAcQ6LpGWQjoe PjaNSiWMK3oQZmpFFwCT8n KTfjeWOxq3iyr8PoH9yudA zpgUW8AW4pVHQfOIHuMFed u1CwzB1lUqlueQNckuuzUV xmczIyXGxhbmcxMDMzXGhp E7vmTeOsQZMkjLinYWuxx4 NoXGYxXGNmMlxmczIyXGx0 cmNoXHBhclxwYXJccGxhaW 6hVoDgExBoQvusHA4qPEPr G7qhuLBpKVVxKHEvE2kxEx FabP1hrXpeFZogEvZfQkBu SvPZy505yh8dGFFcwWDdif SQbBZbdP2aJKobJDopVVly tKEfEIpnk3jaSWNcb0m2mC MnAJXwmjOmg0qxENzncrRg HTGouUPlzHTxMSJdc18bOR yqlRdoyDauWHAex3NzhBbg p4CdMfGnTDyma9MkX40qvH JvbCBzbGlkZXMgcnVuIGFs m82kq4veTWOdYoS7cSTaxI O8xDVfxXUxx5EhdJfbVHZu r7mvKVWpkk5zzdfihFUfj8 IewK0brapaLPbiiDBrbuIf YAJot8d7aQFdJRJnERPcJW zetEt0OHJvu074tn1rgcZ5 kWRmATC8TEirHBAjNNXpli UgZXZhbHVhdGVkXHBsYWlu XGYxXGZzMjJcbGFuZzEwMz NcaGljaFxmMVxkYmNoXGYx NYtuE4nlHqPlE3QjQCZcLr CnaIGdF9fhaFUwVNXhHMbu XGYxXGZzMjJcbGFuZzEwMz NcaGljaFxmMVxkYmNoXGYx NJiyQ8pqZuLkP9YfAMOlDi IgIFxwbGFpblxmMVxmczIy EYulskytSQZeMIeaB4qvAy NqVCXqeQvqEBlnq0WxESJj QYJoWwaqtgJvFGg8eiYgNC BhclxwbGFpblxmMVxmczIy SLcszxksTEPzZSwgD6loXp NiKLPulYjwYPafr8UnBFVs XGNmMlxmczIyIEltbXVub2 ypw7WuJ3bodSeirPX1SKZe X2fqzYQuwIA3EWL6vT7fSE trxwDyLQYhr5YvFSAsROMi ZcO4dN3dQAZ7AzUYyBhzLK BsYWluXGYxXGZzMjJcbGFu ZzEwMzNcaGljaFxmMVxkYm NcGNYuGWmlN1hyJhQmB4Uj QKAoLbOyuIhvESnlQJp2Na xwbGFpblxmMVxmczIyXGxh wwbeSWZvOXerO2mdLmGyWW AzcFnaNBgww1MkQVYyIKEa MlxmczIyIHMgTWVkaWNhbC KJCA67ZYIcCGYmkZgzuR7t fGBZXHZkrqX7t0M6JRqpJX UkRZx4AReuomQmUJOkvM5k JNZsRZ2jJDd6fdMnDZIqh6 OzAL4eKTNwqXOkGVJ5WQCj m2ErT3Hga5ItJFMlNOKpvt 5pkaFiKeJQeTGdQUJuxt18 ROKkRA6oX9pgHCOsFQEdvu RuwUAca2CsKZZhrZM1uWVl MA3WNiSZc14rIWAxVJCHve QsFIKztWwddYY3zfN0mI2x LiBUaGUgRkRBIGhhcyBkZX Xvth0vykSkEOGaZDTus4Ho fPVbwJEzxsAnM0Pgl2LdWH Nhdi91HZhktRBfjl19PW7i Y3Nsl9OhnB6gIVkeWDAiv8 OwpMBlbPRlQKIed0VjV2ge nlphSFtfsLUyhR3hBFBaBE l8OJDpv1GvRVSzl1BvFeNh fiZgQRXsCVVbAHGrhL73IO U4pUixvOvvgbFjCS0dRSTp znAnECApPRYpaJ8nLKewng QoQEVoksU0n7N8GLwiZXCt cuXbVrwzXUN2ytYvheC8cJ BsH6vpkcmeLTksEINfq1Mq fY3akWHSjQKro0DpnTXkqJ FQbAEiTM8utuUpNR5lAUZ0 ODggKENMSUEtODgpIGFzIH C3RZtpEtjwTRH2fuVoDRPy u9QnGSrkR1rrG87dlEiqvJ r8pXDgcWvtyPRtpYVsTOUx usN6u7Y7EKNwg1KxakxqFA BsYWluXGYyXGZzMjJcbGFu ZzEwMzNcaGljaFxmMlxkYm FsVJMiIZrzP4gtTmGrAiLo WpbpIWU1mP== [facility] [id number] 16:48:00 Test Item Value Reference Range Interpretation Comments Case Report (test code Surgical Pathology = 104) Report Case: [id number] Authorizing Provider: Trey Galvez, Collected: 01/11/2021 03:53 PM MD Ordering Location: [address] Received: 01/12/2021 08:17 AM Pathologist: Fredi Hermosillo MD Specimen: Mitral Valve, Mitral Valve (send for C/S first) DIAGNOSIS (test code = h5nleHToZNLpx2qzKDXirR 3220) FuZzEwMzNcZnRuYmpcdWMx IHtccnRmMVxlcGljOTIwMl nqarFqVTSilXIlN4Taigky ZHafNH0kPT1ymGsytVDofR QwMGVyUzVxl5djd916uUWk j7ouFRTBqbuvsWj7gAdfE9 6xh7K1JrynU30jqZKhAZtv bGFpblxmczIwIEhFQVJULC BNSVRSQUwgVkFMVkUsIFZB HQSBPXVCPH2RTGlzwBZnXK XTJfTZBj1CAMVYQYJFPHAD QGxHPQDKWO9QVSVKCuQWJO 3RYcbbGBXRFU3RNsIZVLVs YtMKJAZNHCTLOEIZJ9IGVQ BhciBMRUFGTEVUUyBXSVRI EJWOO5DWGZ1KIONZKQPSFE IDBAZKTjxCHRGXYWIDA7FQ DMPGK8UZMyPirDBzgZegxi ImZArkx5SlKIabZUExNS5i sTpqATQgIB7jHFRnX9aaiB 6fsuz1CbIbADCuEiY9YRRk vuN3Qjq9VOVrBVccs9icx8 FvOQReFAb9sCpbZgCuDLXb q8clgjAmHgEiDCAwPRJfMY VobQOsA101t9jtm6tegnXs xKW5UYHoLCZ3VVjqpjSdim I4SEdxaVQwCsF0QFojeqDz MSjixvYlwfQkLta1CUAuW1 83ZWO3cSnmc7xsQFT1HWNe BVTdEoUbIz1qiMThI732CJ ZqHUVXBTOpxHb4NTGresWw eeAxxFUSq115R212y4ptUU LgafWhbMlZshcks1qeX238 XHBhcGVydzEyMjQwXHBhcG MpjXU2IQKcRR2kgehgMKhj MLotARHrjkR0EAIjvQQmN6 ErSQGxHO7whcayXXT9NHgf JPKtLOR7XdIhMJQmd7Wdun n1YnCqen6lrv88JYS4z2Bk qEdwPZS3ZKF1QbQdKk0uwB RjAFLfJE9rEiWnlEXjRMOi cb36jCvdZHhjAPO5VEOqkx Ymw4Amu1drIaRqyqVhZ9ps O4IwFKRfVXSnPNOlCtOman Hjs2Qdq9XmdVDogQq1m8am QGGoBGZbmDreh4qbDHW0GR XqrGIxD1tkiS1xIJBbCC5y hjfkz9rlQZedSHqhNPJcdC P3krQ3UJBdhJHkM3HyiH1k CHDhSTiyJXNrxkg8VlFfLl 9vdGVyeTcyMFxzYmtwYWdl XHBnbmNvbnRccGduZGVjXH BsYWluXHBsYWluXGYwXGZz MjRccWxcbGFuZzEwMzNcaG ljaFxmMVxkYmNoXGYxXGxv S4isVpOkOuOyJey8SHXhcU KhPCWhPqc0UUCjeDXgMBJU iTeffM8oTDUscHaqtZ2lrF Z8FQFdysBpcTFXjC3uDIDK uZ1jEbZ5FqZcIlR7ZYt1UC FccGFyfX0= COMMENT (test code = y4ivjTPwCAEzrBA5VrFjVT 9086) Dle2uyv6XrqEDsaUBtFDea zNTvwnJpcw11xHX8tW51FB 1dEVIqHbS4LPGzahS3Wnw9 YROsEBLmjEUgP431s9ljh0 ocrgMluMW5vZizEHOnXDSy YWluXGZzMjAgVGhlIGJhY3 WdmsvxPUVibmSacA1pBKRa jcG9aWEmxjQfRJPzmGupsj PzzrVqYBDeNV8lcfT1KSFu GM1dCLYlinhcJhb3KXY0OJ xzbI8wNGplcZxubKksb0Zu WJbbSJ6hVOC7IDjzzyByid YtQ20OOEB2QKudnoesJfW2 FRFuIWYdreToj76ucySrwP Dcr2BoqO0fy9e9GVhwXINg YYPys9YiL14kH5rzCFioLR J9 CPT Code(s) (test code i9upgDAiVXFnsSJ0ZiLyOA = 3357) Fdo1rhs1AqdPFveSIpTDaw eLHqqzOeun01yOB2lS79MG 5hFUAcJpE8DDTvydS1Xnh6 AALoBNCpyDBeJ215c6cag1 cywwErrWT5pUojPRTpPEAi KLfiHHLtXqAsMGkdIDF2QT a2MxVfLHlwH0uuGYU1 CLINICAL HISTORY (test x0rzhMXvGAItgQD7EqJzEN code = 3356) Qdo8chf6OytQRbcQHxEPqa oFGcwcCvxu51vVM5bB53VA 3pDYGlLhU4OPNnucV2Dmh3 BPIfCNKyyWSzM977g7xcg8 mexcYblCH0uXsrCPNtLJKd BAnuGKPxZnNjGI0oe2Kfsv DbtNxxDX1oVO7ykWDtnNF3 MDg0LHNheWUqoP== SPECIMEN SOURCE (test d8vpfYBtWNIjaNH8NjOySG code = 3377) Uzp7vmh8LajUWswUMkLRjv aHMixsVpmu64zOX6kT52TO 5kRDDhCaK7GCBgiaW7Qcw1 YSBgWJKtjGBkK484o6cpm9 sfxrIjcQJ2iAdyAQWjZNMs UWheOPHwHzIqURk7qxBcRI ZhbHZlIFxwYXJ9 GROSS DESCRIPTION (test a3jxeQPaWQEeuRGuWrPvJI code = 3366) VpAQAnf1beJSExoWVlDiRw MzNcZnRuYmpcdWMxXGRlZm Vmp9fxi196sNPhu2yjZKSE kxfxaFu6o5rdDSSkMjH4kU FbXYixD6etogLkrNLhGGBk HRl4uA70TYFpyX5dbVEnCO ysljDxZtU5QUkvZDLyPjV2 VVKydSDvDYMzD4jaTRDcYY bgEDZeYEapmXZnQEN3gTci w5M1bCVtcSPboDsdPrUuMn PuLDIBz0JxIEk8vJgvU5Dt BZJxRmW1vBEyJDVkTYtdII GbWPGifiE3mH66CJtyywR6 cWPgv0Dhb94us151cV0gfC LiIJV6AZYzSTRmiQGeQRPb KYJ7LSNkyNRrD5m2LePmoF KcD4V7EsJktPQjJ3D9PcUo dUDcI3O9QgPmnJTwPMGgdH SzHv6tcQXmqKChpd1gvw73 ZGA1r1IhxIfqPEM5SGQ1Yg JrOr2ruDPsKQBrCYCmwVRh FEOvNU4nsJHeTLSolO9iwm xjXHBnYnJkcmhlYWRccGdi xySzJl6xeOivIDS1ALrfD3 tktD1fRtC6YFalZ5zpfI2b CYr8OKvhuMB0RQZdrA3yKK 6eoukai0xzSfNfCZ3fcvpo m7uhVpCjMP7bpbz0n5dgFj KkHS8yqvnvg2tyWaDfCTpb UIUbogbwLAHcn4WbvnveJG Gok1GjQ0AhyUrnN43hvKxn J65tJNPwnPqykW7xjSfxjL 5cZjBcZnMyNFxwYXJkXHBs YWluXGYxXGZzMjBcbGFuZz EwMzNcaGljaFxmMVxkYmNo LFZfEKbwR7vlDoIhRuTsBI BSZWNlaXZlZCBmcmVzaCBs YWJlbGVkIHdpdGggdGhlIH XopIrcgqNhvtDxGL8rPKBu NDLpL1QwXHOkV69kLCQlzW 1iZXIgbnVtYmVyIGFuZCAi bUx7ndBiSMOivCGiZxAofq KbQADoKMW2JTTwBTI5ANBb TOXoiDVjS8jmRZbueQPxm9 YgdGFuLXBpbmsgdmFsdnVs CKBdrRfjt7LyUIijhVngPW Q6XSKfLWGqM4Wjt8CxzVR7 lwWlhQOwj4VqqNEqI8aapr JyIOY2II3kmR7rRW5oBRmr IHNwZWNpbWVuIGlzIHNlcm gxaGi8REFtS3Gra69rVEN7 myNwWTTrHVbbBlEgC1r9HA zgcArmjcZ7sgF4GM3hZOLq cq9rRIF6tYLmnJHaQNLduy I2mNEsFWAknISiNndmICDp i77zHF8sCDC8vnsfRcW3xL D2ysYlFxGkK44qMAHmrGMo j8MtpAJ8vVJxNXUaS6Rzw6 0yDBFuCSPzzRYgfBS8KHPx pB1eX8Nvy1L3jHNtLOJfXi 3qdO73yG8zFGPliANhQZUd K3BgE2yiaJUtqYpyrn1iLA mZJ6T6FAZhkv7= MICROSCOPIC DESCRIPTION c1eepVYgELKpjAE7LqTxCU (test code = 3371) Etw5ebi2NfdXWfzUYvIIkz jFJpjtDzez10vWQ6vQ37UE 7tTXKnPvD8YGJymxG3Rlq0 QOLdSFYqpTTfQ595v4iyf3 qmoyEpaOW7eDqrQWNiTSLb YDggSFLvZoByUSLrBf0uwU VkXHBhcn0= SPECIAL STUDIES (test a6ewcABgXKXhu4tfKNGzvS code = 3376) FuZzEwMzNcZnRuYmpcdWMx OYsuygLdNNqcw7JcJ8UiZx AwMFxhbnNpXGRlZmxhbmcx WFIbBSM4hhJcUKMvEDpwXW QoCMkzHt3fnTZzlVlnZuJi PJHnp8vuwsSPkgmndIm0q3 zdMWOfPdN0eDXeNCebV2nn lqNspOKaQ2EwxGFnuJb3s6 imTeIdUqQ0xZZrLUpaV0xn haIilTYsFPTgLGo9lN74MZ ZsgJ0jsSOuUChsixNlZuT9 WMpqRDUqClW0HFRlrSRkUZ TrA0jlZWJiSAetLXZbYTqd iSPrWOZ0uRbje8L0sVTlfK KlrMbvZbYjPiChTnOEe5Ti NAb2tCqlE0IiIHKeZyZ7nT QgUGFyYWdyYXBoIEZvbnQ7 cFgptlZeh34ndIYdOCOhFA QqDaRwyYljEKLwOFXDo7Nu kWncFTS8tIj1zMgnZoxvCH H4Vxx5EI5qaq16bee6kQpb KEVxiwehGwS7JWbzVPOrjv iiNJt7ZFepASNvgRV5VNIi eIPcS1YbVKKzQS2exgm1SZ Y9LBfbKXIaRwF3SRQegLKj XRLgaWhdTKyii172FGC4Jm RwXP0nI4Ycc7S3uO7qgSLd FXTsyVTaPkOnUQLbjp8oxD OrQYsnf8DjXEI5yjE2uFZw gSJpSZWvFM81Cqlvf5TlVb szz3RbK59hjHN8NZqmy1ww FO6uPeE3ghWdJQwdh4lvqN 1lSxQ5VSivWX0uVY9yGHXi qL6taygrRHXsNmMqtpykGW VifVszxjUiNb0cbIvkNYP2 GFhvJ3dtaZ0nWkW2KRnjV0 zywU6uMGk9JTiirAV7EEVs vZ8hQA0qbrhjl1yaLFimAY wkUFYravG9ohZ8GWZwqVYh V1BybT1wSKLlKZ5fykilz9 oqNQF4VSwmDDNbYFX7XvLw NAJfx8Exltk6HfEjb9RjpX LgDFjpH66lj581NTJclhDg F0xdyIZassblpMPpmmvwAB ouyeR6BSViCXRdYLfoJDNh XGZzMjJcbGFuZzEwMzNcaG ljaFxmMVxkYmNoXGYxXGxv J8ifEnDoX4SvNKEqZwLtUR lgNHmvwKFprOGkhEO2fJ1e TK2qOICmqQXrK5UbGIPqcs KqzQGoMXX7yCRwpQPrRZ2w DHrsaCScs4kvl6IwY6uvzS yauQU5RW9gLIQfGYBnKFmu o8SocF3qYthpqHGqhihoSC xmczIyXGxhbmcxMDMzXGhp M3ewAeLlWBNshCtbBPqvj8 NoXGYxXGNmMlxmczIyXGx0 cmNoXHBhclxwYXJccGxhaW 0zApPcNoXdZrwoNP7xHVFr H6dyaMDxFTFnZIWtT2paPc OotF7lbKrxMBhmDjJoIkSh QtJBi926nk9oMNVewWGjlq AGtCNmwX4oPJowCDxqXRkg aKIeYIygh4tpPHQdo0r2nC ZxNGGuepEgg8itBZyokpTu UWQgcGKorVGeAMZtn53qLC fuaCazaKncHULao3VquFts e0RsGlGvTYunk4WuT12zcV JvbCBzbGlkZXMgcnVuIGFs c29rk0vrMZIuVeI1iLOiuV P2xCLonIPmc6TofWfvQOJt x3krVUTyyv3chvzkxQZiv5 IpgS4lrvgpDGearYAeykKk OKQjo2a0sCDqRLQuLPHrTY sghCw1PRWep950in3yhrG0 tQRbAZL2UGkpQMZpEBWfen UgZXZhbHVhdGVkXHBsYWlu XGYxXGZzMjJcbGFuZzEwMz NcaGljaFxmMVxkYmNoXGYx VTfkT4vdTiWlH1DzOOHkIe FuoZQqH1qjbSGzREZhNMuj XGYxXGZzMjJcbGFuZzEwMz NcaGljaFxmMVxkYmNoXGYx QBvzN7loLgQzI6TmQZZxSo IgIFxwbGFpblxmMVxmczIy SDhmlhklORWsSCvlT0whUp XnCLDzeEyoSUnyv4RvMEZp MOAhQoseziPzYCk0xdQaBF BhclxwbGFpblxmMVxmczIy ZOskmojeGPRfCEcoF1qqWn DiJGDeiYecHSgpx4CzJYUw XGNmMlxmczIyIEltbXVub2 tin9EnL4hlrCaocQH0VSKb J9kwqBKqzCR4LQQ3nG9iQU otacReZUJco8LvLSZcDBXj GjI0hQ9xAXA6TbEBuMoxPS BsYWluXGYxXGZzMjJcbGFu ZzEwMzNcaGljaFxmMVxkYm BjYWArLMcmE2yqEiTqS2Mp MDKrXoWlwPozCSnkAIm1Eo xwbGFpblxmMVxmczIyXGxh zxxsFFZzXKmqU9maGjRuHZ OomTbvDEgft9BkLOCeVVAw MlxmczIyIHMgTWVkaWNhbC UQKZ23FGLzUHMaiJipuV2l dNPJDRNnjnC6y7J3GPonRT XkRIp6OBbtkyMyIFWmyB8d YIIpBA7dRKh5vrZvMEOcg8 EpRO9hMXCyqEQlRNF2BFGb q6LyH9Zur9HrXJEtEDFirl 0yikAeZaFQpCBdWGOlkr30 HIEzBW9nF2xrSKVtGDIinu MubUHcp4YrWQKeeJL6jHXd ZU4RNgBDy16oRYLcODTAhj AaVRFpsPwigCW2noW2gR1n LiBUaGUgRkRBIGhhcyBkZX Gmrm8ozcYySIFgEUVkl5Bc tIGfqZIrrvMwA6Irv5SkNQ Nuvm70XUknhFLsue31LM9x Z5Peu8JwpO0hMFapTKRfv1 KfhIPsmVEzTVRjg9LkV1np zqsaLIgbeSTqtO0uFNBcWM y5DELle8KcWVCis8KqFiVz hvNvJAYqKPXaJYTnsG33FY G3pLfbjCdhnfUgWD0kLPQd laXwQWXsYPRfkP4kLLwpkh SsFSEhpgN8d4K9OKnbZFSx orJfTszqWJT5rzDahpU2mE VhK9lcpaolANdjJJLxh0Or eV7rxGGJyCDqc5PlgUDdfT IEpINsDQ4csvHrLT3wJGB3 ODggKENMSUEtODgpIGFzIH I4ZLdkCyfgKHZ8ukFjJRKn z1UuNPaqG6kkS89bcHsccL c0sEMvaImeaHOlnIPhIRBv rbJ3m8G0RINlj6YafwidLS BsYWluXGYyXGZzMjJcbGFu ZzEwMzNcaGljaFxmMlxkYm GfTSYjEVaoV2kqEsIrIcXz BourCGL1pG== [facility] [id number] 16:48:00Surgical Pathology Report Case: [id number] Authorizing Provider: Trey Galvez, Collected: 01/11/2021 03:53 PM OrderingLocation: [facility] [address] [address] Received: 01/12/2021 08:17 AM Pathologist: Fredi Hermosillo MD Specimen: Mitral Valve, Mitral Valve (send for C/S first) HEART, MITRAL VALVE, VALVULECTOMY:FIBRINOPURULENT VEGETATION CONTAINING 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 36570; 43525 x 3Endocarditis of mitral valve Mitral valve Received fresh labeled with the patient's name, medical record number number and "mitral valve" is a 4.4 x 1.9 x 0.8 cm aggregate of everett-pink valvular tissue with attached grossly unremarkable chordae tendinea. The specimen is serially sectioned to reveal bright-yellow to everett, firm, cut surfaces with calcifications measuring up to 0.4 cm. [employer] sections are submitted in cassette A1 following brief decalcifica tion. MJP/ewPerformedThe interpretation of this case included the use of immunohistochemistry or special stains.Control Slides Examined: In-house known positive controls were evaluated along with the test tissue. These control slides run alongside of the patients sample show appropriate staining. Internal positive and negative controls when available are evaluated Immunohistochemistry technical testing was performed at [facility], Pathology Laboratory where it was developed [...] qualified to perform high complexity clinical laboratory testing.[id number] 15:29:00 Test Item Value Reference Range Interpretation Comments FIBRINOGEN LEVEL (BEAKER) (test 273 mg/dl 225-434 code = 658) [id number] 15:29:00 Test Item Value Reference Range Interpretation Comments PARTIAL THROMBOPLASTIN TIME 41.3 seconds 22.5-36.0 H (BEAKER) (test code = 760) PROTHROMBIN [id number] 15:28:00 Test Item Value Reference Range Interpretation Comments PROTIME (BEAKER) 25.4 seconds 11.9-14.2 H (test code = 759) INR (BEAKER) (test 2.34 See_Comment [Automat ed message] code = 370) The system [employer] generated this result transmitted ref erence range: <=5.90. The reference range was not used to int erpret this result as normal/abnormal . RECOMMENDED COUMADIN/WARFARIN INR THERAPY RANGESSTANDARD DOSE: 2.0 - 3.0 Includes: PROPHYLAXIS forvenous thrombosis, systemic embolization; TREATMENT for venous thrombosis and/or pulmonary embolus.HIGH RISK: Target INR is 2.5-3.5 for patients with mechanical heart valves.PLATELET [id number] 15:21:00 Test Item Value Reference Range Interpretation Comments PLATELET COUNT (BEAKER) (test 224 K/CU MM 150-450 code = 756) Quality Control Associate ID - [id number] AND [id number] 14:15:00 Test Item Value Reference Range Interpretation Comments HEMOGLOBIN (BEAKER) (test code = 7.2 GM/DL 13.7-17.5 L 410) HEMATOCRIT (BEAKER) (test code = 22.4 % 40.1-51.0 L 411) Quality Control Associate ID - [id number] 13:21:00 Test Item Value Reference Range Interpretation Comments POTASSIUM (BEAKER) 4.0 meq/L 3.5-5.1 Specimen slightly (test code = 379) hemolyzed POCT-GLUCOSE [id number] 12:43:00 Test Item Value Reference Range Interpretation Comments POC-GLUCOSE METER 84 mg/dL 70-110 : TESTED Elias Dominguez [facility] 6720 (BEAKER) (test code = [place], 1538) 40669: Quality Control Associate/Techni won ID = [id number] for RONAL BROCK RAD, ABDOMEN/KUB, 1 VIEW [id number] 12:27:00Reason for exam:->DHT placementShould this be performed at the bedside?->Yes [facility] : 1975 Sex: MFINAL REPORT [...] Robert MDReportVerified Date/Time: 01/17/2021 12:27:08 Reading Location: [facility] Radiology Reading Room [id number] 11:30:00 Test Item Value Reference Range Interpretation Comments MAGNESIUM (BEAKER) 2.0 mg/dL 1.6-2.6 Specimen slightly (test code = 627) hemolyzed [id number] 11:25:00 Test Item Value Reference Range Interpretation Comments POTASSIUM (BEAKER) 4.1 meq/L 3.5-5.1 Specimen slightly (test code = 379) hemolyzed [id number] 11:25:00 Test Item Value Reference Range Interpretation Comments PHOSPHORUS (BEAKER) 6.1 mg/dL 2.3-4.7 H Specimen slightly (test code = 604) hemolyzed LACTIC ACID, [id number] 09:47:00 Test Item Value Reference Range Interpretation Comments LACTATE BLOOD ARTERIAL (2) 1.6 mmol/L 0.5-2.2 (BEAKER) (test code = 2874) RAD, CHEST, 1 VIEW, NON [id number] 09:17:00Reason for exam:->chest tubes, s/p cardiac surgeryShould this be performed at the bedside?->Yes [facility] 1975 Sex: [...] MDReport Verified Date/Time: 01/17/2021 09:17:24 Reading Location: [facility] Radiology Reading Room HEPATIC FUNCTION PANEL 2021-01-17 [...] (test code = 347) hemolyzed COMPREHENSIVE METABOLIC [id number] 08:52:00 Test Item Value Reference Range Interpretation [...] S NOT APPLICABLE FOR DIALYSIS PATIEN TS. [id number] 08:45:00 Test Item Value Reference Range Interpretation Comments MAGNESIUM (BEAKER) 2.1 mg/dL 1.6-2.6 Specimen slightly (test code = 627) hemolyzed HEMOGLOBIN AND [id number] 08:12:00 Test Item Value Reference Range Interpretation Comments HEMOGLOBIN (BEAKER) (test code = 7.6 GM/DL 13.7-17.5 L 410) HEMATOCRIT (BEAKER) (test code = 23.3 % 40.1-51.0 L 411) Quality Control Associate ID - [id number], [id number] 08:04:00 Test Item Value Reference Range Interpretation Comments PH ARTERIAL (BEAKER) (test code = 383) 7.49 7.35-7.45 H CBC W/PLT COUNT & AUTO [id number] 06:06:00 Test Item Value Reference Range Interpretation [...] CONCENTRATION Adequate (CELLAVISION)(BEAKER) (test code = 3438) Quality Control Associate ID - Imelda comments: Slide comments:[id number] 05:18:00 Test Item Value Reference Range Interpretation Comments PARTIAL THROMBOPLASTIN TIME 44.6 seconds 22.5-36.0 H (BEAKER) (test code = 760) PROTHROMBIN [id number] 05:17:00 Test Item Value Reference Range Interpretation Comments PROTIME (BEAKER) 30.0 seconds 11.9-14.2 H (test code = 759) INR (BEAKER) (test 2.89 See_Comment [Automat ed message] code = 370) The system [employer] generated this result transmitted ref erence range: <=5.90. The reference range was not used to int erpret this result as normal/abnormal . RECOMMENDED COUMADIN/WARFARIN INR THERAPY RANGESSTANDARD DOSE: 2.0 - 3.0 Includes: PROPHYLAXIS forvenous thrombosis, systemic embolization; TREATMENT for venous thrombosis and/or pulmonary embolus.HIGH RISK: Target INR is 2.5-3.5 for patients with mechanical heart valves.BLOOD GAS, [id number] 04:54:00 Test Item Value Reference Range Interpretation [...] (BEAKER) (test code = 1819) 80.0 POCT-GLUCOSE [id number] 03:44:00 Test Item Value Reference Range Interpretation Comments POC-GLUCOSE METER 81 mg/dL 70-110 : TESTED A T [facility] 6720 (BEAKER) (test code = NORM [place], 1538) [address]: Quality Control Associate/Techni won ID = [id number] for MESERET ETTSeptember [id number] 02:05:00 Test Item Value Reference Range Interpretation Comments PHOSPHORUS (BEAKER) 10.0 mg/dL 2.3-4.7 HH Specimen slightly (test code = 604) hemolyzed [id number] 01:53:00 Test Item Value Reference Range Interpretation Comments MAGNESIUM (BEAKER) 2.4 mg/dL 1.6-2.6 Specimen slightly (test code = 627) hemolyzed [id number] 01:53:00 Test Item Value Reference Range Interpretation Comments POTASSIUM (BEAKER) 4.3 meq/L 3.5-5.1 Specimen slightly (test code = 379) hemolyzed [id number] 01:40:00 Test Item Value Reference Range Interpretation Comments POTASSIUM (BEAKER) 4.3 meq/L 3.5-5.1 Specimen slightly (test code = 379) hemolyzed LACTIC ACID, [id number] 01:14:00 Test Item Value Reference Range Interpretation Comments LACTATE BLOOD 6.4 mmol/L 0.5-2.2 HH Specimen sligh tly ARTERIAL (2) (BEAKER) hemoly zed (test code = 2874) Quality Control Associate ID - DBLACTIC ACID, [id number] 00:55:00 Test Item Value Reference Range Interpretation Comments LACTATE BLOOD 2.6 mmol/L 0.5-2.2 H Specimen sligh tly ARTERIAL (2) (BEAKER) hemoly zed (test code = 2874) [id number] 23:45:00 Test Item Value Reference Range Interpretation Comments FIBRINOGEN LEVEL (BEAKER) (test 261 mg/dl 225-434 code = 658) [id number] 23:45:00 Test Item Value Reference Range Interpretation Comments PARTIAL THROMBOPLASTIN TIME 49.5 seconds 22.5-36.0 H (BEAKER) (test code = 760) PROTHROMBIN TIME/[id number] 23:44:00 Test Item Value Reference Range Interpretation Comments PROTIME (BEAKER) 31.2 seconds 11.9-14.2 H (test code = 759) INR (BEAKER) (test 3.04 See_Comment [Automat ed message] code = 370) The system [employer] generated this result transmitted ref erence range: <=5.90. The reference range was not used to int erpret this result as normal/abnormal . RECOMMENDED COUMADIN/WARFARIN INR THERAPY RANGESSTANDARD DOSE: 2.0 - 3.0 Includes: PROPHYLAXIS forvenous thrombosis, systemic embolization; TREATMENT for venous thrombosis and/or pulmonary embolus.HIGH RISK: Target INR is 2.5-3.5 for patients with mechanical heart valves.POCT-GLUCOSE [id number] 22:21:00 Test Item Value Reference Range Interpretation Comments POC-GLUCOSE METER 96 mg/dL 70-110 : TESTED A T [facility] 6720 (BEAKER) (test code = [place], 1538) [address]: Quality Control Associate/Techni won ID = [id number] for MESERET ETT, SEPTEMBER PT/[id number] 21:19:00 Test Item Value Reference Range Interpretation [...] for patients with mechanical heart valves.HEMOGLOBIN AND [id number] 20:53:00 Test Item Value Reference Range Interpretation Comments HEMOGLOBIN (BEAKER) (test code = 7.1 GM/DL 13.7-17.5 L 410) HEMATOCRIT (BEAKER) (test code = 22.1 % 40.1-51.0 L 411) Quality Control Associate ID - [id number], [id number] 20:47:00 Test Item Value Reference Range Interpretation Comments PH ARTERIAL (BEAKER) (test code = 383) 7.45 7.35-7.45 BLOOD GAS, [id number] 17:08:00 Test Item Value Reference Range Interpretation [...] Study 01/16/2021 SR. Gender Male Visit Number [id number] Race Unknown Room Number C823 Number Date of 1975 Referring Physician Zakia Sarah Age 45 year(s) Marine Rigger Estela Mann [facility] Corporate Executive Olvin Butler Interpreting Stan Murrell Physician Procedure [...] TR Velocity: 2.61 m/s TR Gradient: 27.15 mmHgSaddleback Memorial Medical Center2D Echo W/Doppler(CW/PW/Color)2021-01-16 16:58:48Ejection FractionSLEH ECHO HEARTLAB MKCKESSON CPACSInterface, External Ris In - 01/16/2021 4:59 PM CDTTransthoracic Echocardiography Report (TTE) Demographics Patient Name CROW KAUR Date of Study 01/16/2021 SR. Gender Male Visit Number [id number] Race Unknown Room Number C823 Number Date of 1975 Referring Physician Zakia Sarah Age 45 year(s) Marine Rigger Estela Mann [facility] Corporate Executive Olvin Butler Interpreting Physician YUNIER Carter Procedure [...] TR Velocity: 2.61 m/s TR Gradient: 27.15 mmHgSaddleback Memorial Medical Center2D Echo W/Doppler(CW/PW/Color)2021-01-16 16:58:48Ejection FractionSLEH ECHO HEARTLAB MKCKESSON CPACSInterface, External Ris In - 01/16/2021 4:59 PM CDTTransthoracic Echocardiography Report (TTE) Demographics Patient Name CROW KAUR Date of Study 01/16/2021 SR. Gender Male Visit Number [id number] Race Unknown Room Number C823 Number Date of 1975 Referring Physician Zakia Sarah Age 45 year(s) Marine Rigger Estela Mann [facility] Corporate Executive Olvin Butler Interpreting Stan Murrell, Physician Procedure [...] TR Velocity: 2.61 m/s TR Gradient: 27.15 mmHgSaddleback Memorial Medical CenterRAD, CHEST, 1 VIEW, NON [id number] 16:44:00Reason for exam:->s/p left pleural CTShould this be performed at the bedside?->Yes [facility] 1975 Sex: [...] Delano Castro VerifiedDate/Time: 01/16/2021 16:44:51 Reading Location: [address] Transitional Reading Room [facility] signed by: DELANO CASTRO MD on 01/16/2021 04:44 PMRAD, CHEST, 1 VIEW, NON [id number] 16:24:00Reason for exam:->confirm ET placement, and post ROSC evaluationShould this be performed at the bedside?->Yes [facility] : 1975 Sex: [...] Castro Verified Date/Time: 01/16/2021 16:24:00 Reading Location: [facility] Transitional Reading Room BLOOD GAS, [id number] 15:46:00 Test Item Value Reference Range Interpretation [...] CONCENTRATION Adequate (CELLAVISION)(BEAKER) (test code = 3438) Quality Control Associate ID - Maryan Phillips comments: Slide comments:PT/[id number] 15:43:00 Test Item Value Reference Range Interpretation [...] is 2.5-3.5 for patients with mechanical heart valves.[id number] 15:39:00 Test Item Value Reference Range Interpretation Comments PHOSPHORUS (BEAKER) (test code = 12.0 mg/dL 2.3-4.7 HH 604) Quality Control Associate ID - [id number] 15:38:00 Test Item Value Reference Range Interpretation Comments MAGNESIUM (BEAKER) (test code = 3.0 mg/dL 1.6-2.6 H 627) Quality Control Associate ID - DBCOMPREHENSIVE METABOLIC [id number] 15:38:00 Test Item Value Reference Range Interpretation [...] S NOT APPLICABLE FOR DIALYSIS PATIEN TS. Quality Control Associate ID - DBLACTIC ACID, [id number] 15:33:00 Test Item Value Reference Range Interpretation Comments LACTATE BLOOD ARTERIAL (2) 10.2 mmol/L 0.5-2.2 HH (BEAKER) (test code = 2874) Quality Control Associate ID - DBCBC W/PLT COUNT & AUTO [id number] 15:20:00 Test Item Value Reference Range Interpretation [...] (BEAKER) (test code = 413) BLOOD GAS, [id number] 15:19:00 Test Item Value Reference Range Interpretation [...] (BEAKER) 37.0 (test code = 1818) CALCIUM, [id number] 15:19:00 Test Item Value Reference Range Interpretation Comments CALCIUM IONIZED (BEAKER) (test 1.35 mmol/L 1.12-1.27 H code = 698) PH, BLOOD (BEAKER) (test code = 7.26 1810) POC-Blood gases, [id number] 14:45:00 Test Item Value Reference Range Interpretation [...] tomated message] code = 1838) The system [employer] generated this result transmit ari reference range : 80.0 - 90.0 mm Hg. The reference r kevin was not used to interpret this result as normal/abnormal . SO2, Arterial-POC (test 96.0 % 96-97 code = 1839) HCO3, Arterilal-POC 18.6 meq/L 21-29 L (test code = 1840) BE, Arterial-POC (test -9.0 meq/L -2-3 L : HALIMA ARI AT [facility] code = 1841) [address] [place], [address]: Quality Control Associate/Techni won ID = [id number] for MIGUEL GANDARA Lab Interpretation Abnormal (test code = 06237-7) [facility]-[id number] 14:45:00 Test Item Value Reference Range Interpretation Comments POC-Potassium (test code 5.7 meq/L 3.6-5.5 H : T ESTED AT [facility] = 1540) [address] [place] [address], [address]: Quality Control Associate/Techni won ID = [id number] for IBAY, MIGUEL Lab Interpretation (test Abnormal code = 36486-1) [facility]-[id number] 14:45:00 Test Item Value Reference Range Interpretation Comments POC-Sodium (test code = 134 meq/L 135-148 L : TE STED AT [facility] 1542) [address] [place] [address], [address]: Quality Control Associate/Techni won ID = [id number] for IBAY, MIGUEL Lab Interpretation (test Abnormal code = 07172-4) [facility]-[id number] 14:45:00 Test Item Value Reference Range Interpretation Comments POC-Glucose (test code = 264 mg/dL 70-110 H : T ESTED AT [facility] 1855) [address] [place] [address], [address]: Quality Control Associate/Techni won ID = [id number] for IBAY, MIGUEL Lab Interpretation (test Abnormal code = 69485-1) [facility]-[id number] 14:45:00 Test Item Value Reference Range Interpretation Comments POC-Hemoglobin (test code 6.5 g/dL 13-16.8 L : TESTED AT [facility] = 1856) [address] [place] [address], [address]: Quality Control Associate/Techni won ID = [id number] for IBAY, MIGUEL Lab Interpretation (test Abnormal code = 74379-8) [facility]-[id number] 14:45:00 Test Item Value Reference Range Interpretation Comments POC-Hematocrit (test code 19 % 40-50 L : = 1857) Quality Control Associate/Techni won ID = [id number] for IBAY, MIGUEL Lab Interpretation (test Abnormal code = 85598-0) [facility]-Blood gases, [id number] 14:45:00 Test Item Value Reference Range Interpretation [...] tomated message] code = 1838) The system [employer] h generated this result transmit ari reference range : 80.0 - 90.0 mm Hg. The reference r kevin was not used to interpret this result as normal/abnormal . SO2, Arterial-POC (test 96.0 % 96-97 code = 1839) HCO3, Arterilal-POC 18.6 meq/L 21-29 L (test code = 1840) BE, Arterial-POC (test -9.0 meq/L -2-3 L : HALIMA ARI AT [facility] code = 1841) [address] [place] [address], [address]: Quality Control Associate/Techni won ID = [id number] for IBAY, MIGUEL Lab Interpretation Abnormal (test code = 68579-1) [facility]-[id number] 14:45:00 Test Item Value Reference Range Interpretation Comments POC-Potassium (test code 5.7 meq/L 3.6-5.5 H : T ESTED AT [facility] = 1540) [address] [place] [address], [address]: Quality Control Associate/Techni won ID = [id number] for IBAY, MIGUEL Lab Interpretation (test Abnormal code = 01933-0) [facility]-[id number] 14:45:00 Test Item Value Reference Range Interpretation Comments POC-Sodium (test code = 134 meq/L 135-148 L : TE STED AT [facility] 1542) [address] [place] [address], [address]: Quality Control Associate/Techni won ID = [id number] for IBAY, MIGUEL Lab Interpretation (test Abnormal code = 97054-8) [facility]-[id number] 14:45:00 Test Item Value Reference Range Interpretation Comments POC-Glucose (test code = 264 mg/dL 70-110 H : T ESTED AT [facility] 1855) [address] [facility], [address]: Quality Control Associate/Techni won ID = [id number] for MIGUEL GANDARA Lab Interpretation (test Abnormal code = 04429-0) [facility]-[id number] 14:45:00 Test Item Value Reference Range Interpretation Comments POC-Hemoglobin (test code 6.5 g/dL 13-16.8 L : TESTED AT [facility] = 1856) [address] [facility], [address]: Quality Control Associate/Techni won ID = [id number] for BIRGITY MIGUEL Lab Interpretation (test Abnormal code = 59122-6) [facility]-[id number] 14:45:00 Test Item Value Reference Range Interpretation Comments POC-Hematocrit (test code 19 % 40-50 L : = 1857) Quality Control Associate/Techni won ID = [id number] for IBAY MIGUEL Lab Interpretation (test Abnormal code = 74733-2) [facility]-Blood gases, [id number] 14:45:00 Test Item Value Reference Range Interpretation [...] meq/L -2-3 L : HALIMA ARI AT [facility] code = 1841) [address] [facility] [place], [address]: Quality Control Associate/Techni won ID = [id number] for IBAY, MIGUEL Lab Interpretation Abnormal (test code = 42494-0) [facility]-[id number] 14:45:00 Test Item Value Reference Range Interpretation Comments POC-Potassium (test code 5.7 meq/L 3.6-5.5 H : T ESTED AT [facility] = 1540) [address] [place] [address], [address]: Quality Control Associate/Techni won ID = [id number] for IBAY, MIGUEL Lab Interpretation (test Abnormal code = 38728-7) [facility]-Ngnjss4889-12-44 14:45:00 Test Item Value Reference Range Interpretation Comments POC-Sodium (test code = 134 meq/L 135-148 L : TE STED AT [facility] 1542) [address] [place] [address], [address]: Quality Control Associate/Techni won ID = [id number] for IBAY, MIGUEL Lab Interpretation (test Abnormal code = 64806-2) [facility]-[id number] 14:45:00 Test Item Value Reference Range Interpretation Comments POC-Glucose (test code = 264 mg/dL 70-110 H : T ESTED AT [facility] 1855) [address] [place] [address], [address]: Quality Control Associate/Techni won ID = [id number] for IBAY, MIGUEL Lab Interpretation (test Abnormal code = 47875-8) [facility]-[id number] 14:45:00 Test Item Value Reference Range Interpretation Comments POC-Hemoglobin (test code 6.5 g/dL 13-16.8 L : TESTED AT [facility] = 1856) [address] [place] [address], [address]: Quality Control Associate/Techni won ID = [id number] for IBAY, MIGUEL Lab Interpretation (test Abnormal code = 80693-7) [facility]-[id number] 14:45:00 Test Item Value Reference Range Interpretation Comments POC-Hematocrit (test code 19 % 40-50 L : = 1857) Quality Control Associate/Techni won ID = [id number] for IBAY, MIGUEL Lab Interpretation (test Abnormal code = 56245-9) [facility], [id number] 14:45:00 Test Item Value Reference Range Interpretation [...] -9.0 meq/L -2.0-3.0 L : TESTED AT [facility] 67 ARTERIAL-POC [facility], (BEAKER) (test code [address]: = 1841) Quality Control Associate/Techni won ID = [id number] for MIGUEL GANDARA [id number] 14:45:00 Test Item Value Reference Range Interpretation Comments POC-SODIUM (BEAKER) 134 meq/L 135-148 L : TESTED AT [place] [address] (test code = 1542) [facility], [address]: Quality Control Associate/Techni won ID = [id number] for MIGUEL GANDARA UMAW-[id number] 14:45:00 Test Item Value Reference Range Interpretation Comments POC-POTASSIUM 5.7 meq/L 3.6-5.5 H : TESTED AT [place] [address] (BEAKER) (test code [facility], = 1540) [address]: Quality Control Associate/Techni won ID = [id number] for MIGUEL GANDARA UYDI-[id number] 14:45:00 Test Item Value Reference Range Interpretation Comments POC-HEMOGLOBIN 6.5 g/dL 13.0-16.8 L : TESTED AT [facility] 6720 ([facility]) (test code = [place], 1856) [address]: Quality Control Associate/Techni won ID = [id number] for MIGUEL GANDARA EEAC-[id number] 14:45:00 Test Item Value Reference Range Interpretation Comments POC-HEMATOCRIT 19 % 40-50 L : Quality Control Associate/Te chnician ID = ([facility]) (test code = 939900 for MIGUEL GANDARA 185) [id number]-[id number] 14:45:00 Test Item Value Reference Range Interpretation Comments POC-GLUCOSE ([facility]) 264 mg/dL 70-110 H : TESTE D AT [facility] 6720 (test code = 1855) SHANNA Lott [facility] [place], [address]: Quality Control Associate/Techni won ID = [id number] for MIGUEL GANDARA POCT-GLUCOSE [id number] 14:32:00 Test Item Value Reference Range Interpretation Comments POC-GLUCOSE METER 70 mg/dL 70-110 : TESTED A T [facility] 6720 ([facility]) (test code = NORM [place] [facility], 1538) [address]: Quality Control Associate/Techni won ID = [id number] for ON LICENSE OF [facility] POC-Blood gases, [id number] 14:27:00 Test Item Value Reference Range Interpretation Comments Temp. Celsius-POC (test code = 1834) FIO2-POC (test code = 1835) pH, Venous-POC (test 7.225 7.320-7.420 L : TESTE D AT [facility] code = 1842) [address] [facility] [place], [address] PCO2, Venous-POC (test 57.9 See_Comment H If [...] meq/L -2-3 L : code = 1847) Quality Control Associate/Techni won ID = [id number] for MIGUEL GANDARA Lab Interpretation Abnormal (test code = 38057-6) [facility]-Blood gases, [id number] 14:27:00 Test Item Value Reference Range Interpretation Comments Temp. Celsius-POC (test code = 1834) FIO2-POC (test code = 1835) pH, Venous-POC (test 7.225 7.320-7.420 L : TESTE D AT [facility] code = 1842) [address], [address] PCO2, Venous-POC (test 57.9 See_Comment H If [...] mated message] code = 1844) The system Bellyic Carena generated this result transmit ari reference range : 25.0 - 40.0 mm Hg. The reference r kevin was not used to interpret this result as normal/abnormal . SO2, Venous-POC (test 35.0 % 40-70 L code = 1845) HCO3, Venous-POC (test 24.0 meq/L 21-29 code = 1846) BE, Venous-POC (test -4.0 meq/L -2-3 L : code = 1847) Quality Control Associate/Techni won ID = [id number] for MIGUEL GANDARA Lab Interpretation Abnormal (test code = 92244-2) [facility]-Blood gases, [id number] 14:27:00 Test Item Value Reference Range Interpretation Comments Temp. Celsius-POC (test code = 1834) FIO2-POC (test code = 1835) pH, Venous-POC (test 7.225 7.320-7.420 L : TESTE D AT [facility] code = 1842) [address] [place], [address] PCO2, Venous-POC (test 57.9 See_Comment H If [...] mated message] code = 1844) The system [employer] h generated this result transmit ari reference range : 25.0 - 40.0 mm Hg. The reference r kevin was not used to interpret this result as normal/abnormal . SO2, Venous-POC (test 35.0 % 40-70 L code = 1845) HCO3, Venous-POC (test 24.0 meq/L 21-29 code = 1846) BE, Venous-POC (test -4.0 meq/L -2-3 L : code = 1847) Quality Control Associate/Techni won ID = [id number] for MIGUEL GANDARA Lab Interpretation Abnormal (test code = 21005-5) [facility] [id number] 14:27:00 Test Item Value Reference Range Interpretation Comments TEMP, CELSIUS-POC (BEAKER) (test code = 1834) FIO2-POC (BEAKER) (test code = 1835) PH, VENOUS-POC 7.225 7.320-7.420 L : TESTED AT [facility] 6720 (BEAKER) (test code [place] [facility], = 1842) [address] PCO2, VENOUS-POC 57.9 mm Hg 41.0-51.0 H If pO2 is > 180, pCO2 may (BEAKER) (test code be posit ively biased = 1843) PO2, VENOUS-POC 26.0 mm Hg 25.0-40.0 (BEAKER) (test code = 1844) SO2, VENOUS-POC 35.0 % 40.0-70.0 L (BEAKER) (test code = 1845) HCO3, VENOUS-POC 24.0 meq/L 21.0-29.0 (BEAKER) (test code = 1846) BASE EXCESS, -4.0 meq/L -2.0-3.0 L : Quality Control Associate/Tech nician ID VENOUS-POC ([facility]) = [id number] for MIGUEL GANDARA (test code = 1847) [id number] 14:27:00 Test Item Value Reference Range Interpretation Comments [facility] 138 meq/L 135-148 : TESTED AT [place] [address] (test code = 1542) [facility] [address]: Quality Control Associate/Techni won ID = [id number] for MIGUEL GANDARA [id number]-[id number] 14:27:00 Test Item Value Reference Range Interpretation Comments POC-POTASSIUM 6.2 meq/L 3.6-5.5 HH : TESTED AT [place] [address] [facility] (test code [facility], = 1540) [address]: Quality Control Associate/Techni won ID = [id number] for MIGUEL GANDARA [id number]-[id number] 14:27:00 Test Item Value Reference Range Interpretation Comments POC-HEMOGLOBIN 6.5 g/dL 13.0-16.8 L : TESTED AT [place] [address] (BEAKER) (test code = NORM [place] [facility], 1856) [address]: Quality Control Associate/Techni won ID = [id number] for MIGUEL GANDARA [id number] 14:27:00 Test Item Value Reference Range Interpretation Comments POC-HEMATOCRIT 19 % 40-50 L : Quality Control Associate/Te chnician ID = ([facility]) (test code = 038488 for MIGUEL GANDARA 1857) [id number] 14:27:00 Test Item Value Reference Range Interpretation Comments POC-GLUCOSE ([facility]) 43 mg/dL 70-110 L : TESTE [place] [address] (test code = 1855) [facility], [address]: Quality Control Associate/Techni won ID = [id number] for MIGUEL GANDARA CBC W/PLT COUNT & AUTO [id number] 11:27:00 Test Item Value Reference Range Interpretation Comments WHITE BLOOD CELL COUNT ([facility]) 17.2 K/ L 3.5-10.5 H (test code = 775) RED BLOOD CELL COUNT ([facility]) 2.89 M/ L 4.63-6.08 L (test [...] CONCENTRATION Adequate (CELLAVISION)(BEAKER) (test code = 3438) Quality Control Associate ID - Loren Sethi comments: Slide comments:SPUTUM CULTURE + GRAM [id number] 08:40:00 Test Item Value Reference Range Interpretation [...] epithelial RESULT cells (BEAKER) (test code = 169121) GRAM STAIN No organisms seen RESULT (BEAKER) (test code = 071460) <1+ Normal respiratory mendy presentBRONCHIAL CULTURE + GRAM [id number] 08:39:00 Test Item Value Reference Interpretation Comments [...] No organisms seen (BEAKER) (test code = 650332) 1+ Normal respiratory mendy [id number] 07:27:00 Test Item Value Reference Range Interpretation Comments PARTIAL THROMBOPLASTIN TIME 77.8 seconds 22.5-36.0 H (BEAKER) (test code = 760) [id number] 06:36:00 Test Item Value Reference Range Interpretation Comments PARTIAL THROMBOPLASTIN TIME 65.8 seconds 22.5-36.0 H (BEAKER) (test code = 760) PROTHROMBIN TIME/[id number] 06:35:00 Test Item Value Reference Range Interpretation Comments PROTIME (BEAKER) 16.1 seconds 11.9-14.2 H (test code = 759) INR (BEAKER) (test 1.31 See_Comment [Automat ed message] code = 370) The system [employer] generated this result transmitted ref erence range: <=5.90. The reference range was not used to int erpret this result as normal/abnormal . RECOMMENDED COUMADIN/WARFARIN INR THERAPY RANGESSTANDARD DOSE: 2.0 - 3.0 Includes: PROPHYLAXIS forvenous thrombosis, systemic embolization; TREATMENT for venous thrombosis and/or pulmonary embolus.HIGH RISK: Target INR is 2.5-3.5 for patients with mechanical heart valves.BASIC METABOLIC [id number] 05:07:00 Test Item Value Reference Range Interpretation [...] S NOT APPLICABLE FOR DIALYSIS PATIEN TS. Quality Control Associate ID - [id number] 04:57:00 Test Item Value Reference Range Interpretation Comments MAGNESIUM (BEAKER) (test code = 2.2 mg/dL 1.6-2.6 627) Quality Control Associate ID - [id number] 04:57:00 Test Item Value Reference Range Interpretation Comments PHOSPHORUS (BEAKER) (test code = 6.4 mg/dL 2.3-4.7 H 604) Quality Control Associate ID - ADMINRAD, CHEST, 1 VIEW, NON [id number] 01:08:00Reason for exam:->chest tubes, s/p cardiac surgeryShould this be performed at the bedside?->[facility] 1975 Sex: MFINAL REPORT CLINICAL INDICATION: Postop Comparison: 01/15/2021 The ca rdiomediastinal contours are stable. Central pulmonary vascular congestion and bilateral parenchymalopacities are similar to previous. There is no pneumothorax. A left chest tube has been removed. A left IJ CVC remains in place. Signed: Domingo Duron MDReport Verified Date/Time: 01/16/2021 01:08:13 POCT- GLUCOSE [id number] 00:14:00 Test Item Value Reference Range Interpretation Comments POC-GLUCOSE METER 96 mg/dL 70-110 : TESTED A T [facility] 6720 (TAMARA) (test code = [place], 1538) [address]: Quality Control Associate/Techni won ID = [id number] for CRESCENCIO PRIETO [id number] 23:26:00 Test Item Value Reference Range Interpretation Comments PARTIAL THROMBOPLASTIN TIME 54.3 seconds 22.5-36.0 H (TAMARA) (test code = 760) Lipid [id number] 22:53:00 Test Item Value Reference Range Interpretation Comments Triglycerides (test 84 mg/dL code = 2571-8) Cholesterol (test code 111 mg/dL = 2093-3) HDL (test code = 25 mg/dL 5-9) LDL Calculated (test 69 mg/dL code = 05045-3) CARLEY (test code = CARLEY) Triglyceride Reference Range: Low Risk <150 Borderline 150-199 High Risk 200-499 Very High Risk >=500 Cholesterol Reference Range: Low Risk <200 Borderline 200-239 High Risk >240 HDL Cholesterol Reference Range: Low Risk >=60 High Risk <40 LDL Cholesterol Reference Range: Optimal <100 Near Optimal 100-129 Borderline 130-159 High 160-189 Very High >=190 Quality Control Associate ID - DB [facility] Center[facility] [id number] 22:53:00 Test Item Value Reference Range Interpretation Comments Triglycerides (test 84 mg/dL code = 2571-8) Cholesterol (test code 111 mg/dL = 2093-3) HDL (test code = 25 mg/dL 2084-9) LDL Calculated (test 69 mg/dL code = 72462-4) CARLEY (test code = CARLEY) Triglyceride Reference Range: Low Risk <150 Borderline 150-199 High Risk 200-499 Very High Risk >=500 Cholesterol Reference Range: Low Risk <200 Borderline 200-239 High Risk >240 HDL Cholesterol Reference Range: Low Risk >=60 High Risk <40 LDL Cholesterol Reference Range: Optimal <100 Near Optimal 100-129 Borderline 130-159 High 160-189 Very High >=190 Quality Control Associate ID - DB [facility] CenterLipid [id number] 22:53:00 Test Item Value Reference Range Interpretation Comments Triglycerides (test 84 mg/dL code = 2571-8) Cholesterol (test code 111 mg/dL = 2093-3) HDL (test code = 25 mg/dL 2085-02) LDL Calculated (test 69 mg/dL code = 93872-2) CARLEY (test code = CARLEY) Triglyceride Reference Range: Low Risk <150 Borderline 150-199 High Risk 200-499 Very High Risk >=500 Cholesterol Reference Range: Low Risk <200 Borderline 200-239 High Risk >240 HDL Cholesterol Reference Range: Low Risk >=60 High Risk <40 LDL Cholesterol Reference Range: Optimal <100 Near Optimal 100-129 Borderline 130-159 High 160-189 Very High >=190 Quality Control Associate ID - DB [facility] CenterLIPID [id number] 22:53:00 Test Item Value Reference Range Interpretation [...] Borderline 130-159 High 160-189 Very High >=190 Quality Control Associate ID - DBBLOOD [id number] 19:01:00 Test Item Value Reference Range Interpretation Comments CULTURE (BEAKER) (test No growth in 5 days code = 1095) BLOOD [id number] 18:01:00 Test Item Value Reference Range Interpretation Comments CULTURE (BEAKER) (test No growth in 5 days code = 1095) POCT-GLUCOSE [id number] 12:26:00 Test Item Value Reference Range Interpretation Comments POC-GLUCOSE METER 101 mg/dL 70-110 : TESTED A T [facility] 6720 (BEAKER) (test code = [place], 1538) [address]: Quality Control Associate/Techni won ID = [id number] for Paige Russell [id number] 09:21:00 Test Item Value Reference Range Interpretation Comments PARTIAL THROMBOPLASTIN TIME 35.0 seconds 22.5-36.0 (BEAKER) (test code = 760) RAD, CHEST, 1 VIEW, NON [id number] 09:14:00Reason for exam:->chest tubes, s/p cardiac surgeryShould this be performed at the bedside?->Yes [facility] 1975 Sex: [...] Robert MDReport Verified Date/Time: 01/15/2021 09:14:18 Reading Location:[address] Neuro Reading Room POCT-GLUCOSE [id number] 08:23:00 Test Item Value Reference Range Interpretation Comments POC-GLUCOSE METER 104 mg/dL 70-110 : TESTED A T [facility] 6720 (BEAKER) (test code = [place], 1538) [address]: Quality Control Associate/Techni won ID = [id number] for Da vis, Paige CBC W/PLT COUNT & AUTO [id number] 06:50:00 Test Item Value Reference Range Interpretation [...] CONCENTRATION Adequate (CELLAVISION)(BEAKER) (test code = 3438) Quality Control Associate ID - Dariela OverholtUser comments: Slide comments:[id number] 04:17:00 Test Item Value Reference Range Interpretation Comments MAGNESIUM (BEAKER) (test code = 2.1 mg/dL 1.6-2.6 627) Quality Control Associate ID Doretha COOPER WCOMPREHENSIVE METABOLIC [id number] 04:17:00 Test Item Value Reference Range Interpretation [...] S NOT APPLICABLE FOR DIALYSIS PATIEN TS. Quality Control Associate ID Doretha COOPER WPROTHROMBIN TIME/[id number] 03:53:00 Test Item Value Reference Range Interpretation Comments PROTIME (BEAKER) 15.1 seconds 11.9-14.2 H (test code = 759) INR (BEAKER) (test 1.21 See_Comment [Automat ed message] code = 370) The system [employer] generated this result transmitted ref erence range: <=5.90. The reference range was not used to int erpret this result as normal/abnormal . RECOMMENDED COUMADIN/WARFARIN INR THERAPY RANGESSTANDARD DOSE: 2.0 - 3.0 Includes: PROPHYLAXIS forvenous thrombosis, systemic embolization; TREATMENT for venous thrombosis and/or pulmonary embolus.HIGH RISK: Target INR is 2.5-3.5 for patients with mechanical heart valves.POCT-GLUCOSE [id number] 21:26:00 Test Item Value Reference Range Interpretation Comments POC-GLUCOSE METER 77 mg/dL 70-110 : Notified RN/MD: TESTED (BEAKER) (test code = AT [facility] [address] [facility] 1538) [facility], [address]: Quality Control Associate/Techni won ID = [id number] for Tiago calvo (contract), [place] PROTHROMBIN TIME/[id number] 13:30:00 Test Item Value Reference Range Interpretation Comments PROTIME (BEAKER) 15.3 seconds 11.9-14.2 H (test code = 759) INR (BEAKER) (test 1.23 See_Comment [Automat ed message] code = 370) The system [employer] generated this result transmitted ref erence range: <=5.90. The reference range was not used to int erpret this result as normal/abnormal . RECOMMENDED COUMADIN/WARFARIN INR THERAPY RANGESSTANDARD DOSE: 2.0 - 3.0 Includes: PROPHYLAXIS forvenous thrombosis, systemic embolization; TREATMENT for venous thrombosis and/or pulmonary embolus.HIGH RISK: Target INR is 2.5-3.5 for patients with mechanical heart valves.Hepatitis B surface [id number] 11:35:00 Test Item Value Reference Range Interpretation Comments HBsAg Screen (test code Nonreactive Nonreactive = 5195-3) CARLEY (test code = CARLEY) Specimen is considered negative for HBsAg. Lab Interpretation (test Normal code = 29867-4) [facility] CenterHepatitis B surface [id number] 11:35:00 Test Item Value Reference Range Interpretation Comments HBsAg Screen (test code Nonreactive Nonreactive = 5195-3) CARLEY (test code = CARLEY) Specimen is considered negative for HBsAg. Lab Interpretation (test Normal code = 22910-5) [facility] CenterHepatis[facility] B surface [id number] 11:35:00 Test Item Value Reference Range Interpretation Comments HBsAg Screen (test code Nonreactive Nonreactive = 5195-3) CARLEY (test code = CARLEY) Specimen is considered negative for HBsAg. Lab Interpretation (test Normal code = 31789-7) [facility] B SURFACE [id number] 11:35:00 Test Item Value Reference Range Interpretation Comments HEPATITIS B SURFACE ANTIGEN (2) Nonreactive Nonreactive (BEAKER) (test code = 2585) Specimen is considered negative for HBsAg.SURGICALLY OBTAINED CULTURE + GRAM [id number] 08:16:00 Test Item Value Reference Interpretation Comments [...] No organisms seen (BEAKER) (test code = 241761) CBC W/PLT COUNT & AUTO [id number] 08:08:00 Test Item Value Reference Range Interpretation [...] CONCENTRATION Decreased (CELLAVISION)(BEAKER) (test code = 3438) Quality Control Associate ID - Dariela OverholtUser comments: Slide comments:POCT-GLUCOSE METER 2021-01-14 07:33:00 Test Item Value Reference Range Interpretation Comments POC-GLUCOSE METER 103 mg/dL 70-110 : TESTED A T [facility] 6720 (BEAKER) (test code = [place], 1538) [address]: Quality Control Associate/Techni won ID = [id number] for Manuelito Chavez RAD, CHEST, 1 VIEW, NON [id number] 05:56:00Reason for exam:->ettShould this be performed at the bedside?->Yes [facility] 1975 Sex: [...] Re Cantu MDReport Verified Date/Time: 01/14/2021 05:56:32 [id number] 04:21:00 Test Item Value Reference Range Interpretation Comments MAGNESIUM (BEAKER) (test code = 2.3 mg/dL 1.6-2.6 627) Quality Control Associate ID - VALDEZ OMPREHENSIVE METABOLIC [id number] 04:05:00 Test Item Value Reference Range Interpretation [...] S NOT APPLICABLE FOR DIALYSIS PATIEN TS. Quality Control Associate ID - DBPOCT-GLUCOSE [id number] 03:46:00 Test Item Value Reference Range Interpretation Comments POC-GLUCOSE METER 83 mg/dL 70-110 : TESTED A T [facility] 6720 [facility] (test code = [place], 1538) [address]: Quality Control Associate/Techni won ID = [id number] for Manuelito Busby RAD, CHEST, 1 VIEW, NON [id number] 19:37:00Reason for exam:->LIJ HD catheter placementShould this be performed at the bedside?->Yes [facility] : 1975 Sex: [...] Reading Location: [facility] B1 C013W Consult Reading Room Central Line [...] to verify the correct patient, procedure, equipment, network and threat support specialist and site/side marked as required.Indications: vascular access(dialysis [...] NoneType of anesthesia: NoneGrafts or Implants: NoneCH[facility], Hill[facility]stCentral Line (HD catheter J-Wire) 2021-01-13 18:52:29Chapo Kennedy [...] to verify the correct patient, procedure, equipment, network and threat support specialist and site/side marked as required.Indications: vascular access(dialysis [...] NoneType of anesthesia: NoneGrafts or Implants: NoneCH[facility], Hill[facility]stCentral Line (HD catheter J-Wire) 2021-01-13 18:52:29Chapo Kennedy [...] to verify the correct patient, procedure, equipment, network and threat support specialist and site/side marked as required.Indications: vascular access(dialysis [...] NoneType of anesthesia: NoneGrafts or Implants: NoneCH[facility], HillcrestPOCT-GLUCOSE [id number] 17:36:00 Test Item Value Reference Range Interpretation Comments POC-GLUCOSE METER 100 mg/dL 70-110 : TESTED A T [facility] 6720 (BEAKER) (test code = NORM [place] [facility], 1538) [address]: Quality Control Associate/Techni won ID = [id number] for NICK FONSECAABRAN STERLING BASIC METABOLIC [id number] 15:58:00 Test Item Value Reference Range Interpretation [...] S NOT APPLICABLE FOR DIALYSIS PATIEN TS. Quality Control Associate ID - [id number] 15:56:00 Test Item Value Reference Range Interpretation Comments MAGNESIUM (BEAKER) (test code = 2.2 mg/dL 1.6-2.6 627) Quality Control Associate ID - DBBLOOD GAS, [id number] 15:43:00 Test Item Value Reference Range Interpretation [...] FIO2 (BEAKER) (test code = 1819) 40.0 [id number] 12:57:00 Test Item Value Reference Range Interpretation Comments POTASSIUM (BEAKER) (test code = 3.9 meq/L 3.5-5.1 379) Quality Control Associate ID - VIRGILIO MBLOOD GAS, [id number] 12:14:00 Test Item Value Reference Range Interpretation [...] (BEAKER) (test code = 1819) 40.0 POCT-GLUCOSE [id number] 12:04:00 Test Item Value Reference Range Interpretation Comments POC-GLUCOSE METER 105 mg/dL 70-110 : TESTED A T [facility] 6720 (BEAKER) (test code = [place], 1538) [address]: Quality Control Associate/Techni won ID = [id number] for DU ABRAN ESPANA [id number] 09:59:00 Test Item Value Reference Range Interpretation Comments MAGNESIUM (BEAKER) (test code = 2.2 mg/dL 1.6-2.6 627) Quality Control Associate ID - [id number] 09:59:00 Test Item Value Reference Range Interpretation Comments PHOSPHORUS (BEAKER) (test code = 4.6 mg/dL 2.3-4.7 604) Quality Control Associate ID - [id number] 09:59:00 Test Item Value Reference Range Interpretation Comments POTASSIUM (BEAKER) (test code = 3.7 meq/L 3.5-5.1 379) Quality Control Associate ID - BSGLUCOSE-STAT [id number] 09:38:00 Test Item Value Reference Range Interpretation Comments GLUCOSE RANDOM (BEAKER) (test code 119 mg/dL 70-110 H = 652) HGB/HCT (H&H) - STAT [id number] 09:38:00 Test Item Value Reference Range Interpretation Comments HEMOGLOBIN (BEAKER) (test code = 8.3 GM/DL 13.0-16.8 L 410) HEMATOCRIT (BEAKER) (test code = 24.0 % 40.0-50.0 L 411) POTASSIUM-STAT [id number] 09:38:00 Test Item Value Reference Range Interpretation Comments POTASSIUM (BEAKER) (test code = 3.4 meq/L 3.6-5.5 L 379) BLOOD GAS, [id number] 09:37:00 Test Item Value Reference Range Interpretation [...] (test code = 1819) 40.0 SODIUM NA-STAT [id number] 09:34:00 Test Item Value Reference Range Interpretation Comments SODIUM (BEAKER) (test code = 381) 135 meq/L 136-145 L SPUTUM CULTURE + GRAM [id number] 08:30:00 Test Item Value Reference Interpretation Comments [...] 5-10 epithelial (BEAKER) (test code = cells 002729) GRAM STAIN RESULT No organisms seen (BEAKER) (test code = 314594) <1+ Normal respiratory mendy presentCBC W/PLT COUNT [...] CONCENTRATION Decreased (CELLAVISION)(BEAKER) (test code = 3438) Quality Control Associate ID - Sun Menendez comments: Slide comments:RAD, CHEST, 1 VIEW, NON [id number] 07:21:00Reason for exam:->ettShould this be performed at the bedside?->[facility] : 1975 Sex: MFINAL REPORT RAD, CHEST, 1 VIEW, NON DEPT INDICATION: ett COMPARISON: Prior day's exam FINDINGS: Portable frontal view of the chest. IMPRESSION: Support Lines: Stable. Lungs and pleura: No new consolidation. No pneumothorax.Heart and mediastinum: Stable contours. Stable surgical changes.Additional findings: None. Signed: JR Bebeto, Taye FRAGAepting Verified Date/Time: 01/13/2021 07:21:00 Reading Location: [facility] Radiology Reading Room COMPREHENSIVE METABOLIC [id number] 04:58:00 Test Item Value Reference Range Interpretation [...] S NOT APPLICABLE FOR DIALYSIS PATIEN TS. Quality Control Associate ID - LINA [id number] 04:46:00 Test Item Value Reference Range Interpretation Comments MAGNESIUM (BEAKER) (test code = 2.2 mg/dL 1.6-2.6 627) Quality Control Associate ID - LINA [id number] 04:46:00 Test Item Value Reference Range Interpretation Comments PHOSPHORUS (BEAKER) (test code = 4.3 mg/dL 2.3-4.7 604) Quality Control Associate ID - LINA LBLOOD GAS, [id number] 04:11:00 Test Item Value Reference Range Interpretation [...] FIO2 (BEAKER) (test code = 1819) 40.0 [id number] 21:46:00 Test Item Value Reference Range Interpretation Comments MAGNESIUM (BEAKER) (test code = 2.3 mg/dL 1.6-2.6 627) Quality Control Associate ID - [id number] 21:46:00 Test Item Value Reference Range Interpretation Comments PHOSPHORUS (BEAKER) (test code = 4.3 mg/dL 2.3-4.7 604) Quality Control Associate ID - [id number] 21:46:00 Test Item Value Reference Range Interpretation Comments POTASSIUM (BEAKER) (test code = 4.2 meq/L 3.5-5.1 379) Quality Control Associate ID - BSPH, [id number] 21:28:00 Test Item Value Reference Range Interpretation Comments PH ARTERIAL (BEAKER) (test code = 383) 7.46 7.35-7.45 H BASIC METABOLIC [id number] 15:47:00 Test Item Value Reference Range Interpretation [...] S NOT APPLICABLE FOR DIALYSIS PATIEN TS. Quality Control Associate ID - VALDEZ [id number] 15:39:00 Test Item Value Reference Range Interpretation Comments MAGNESIUM (BEAKER) (test code = 2.4 mg/dL 1.6-2.6 627) Quality Control Associate ID - VALDEZ [id number] 15:39:00 Test Item Value Reference Range Interpretation Comments PHOSPHORUS (BEAKER) (test code = 5.1 mg/dL 2.3-4.7 H 604) Quality Control Associate ID - VALDEZ MBASIC METABOLIC [id number] 10:19:00 Test Item Value Reference Range Interpretation [...] S NOT APPLICABLE FOR DIALYSIS PATIEN TS. Quality Control Associate ID - VALDEZ [id number] 10:18:00 Test Item Value Reference Range Interpretation Comments MAGNESIUM (BEAKER) (test code = 2.5 mg/dL 1.6-2.6 627) Quality Control Associate ID - VALDEZ [id number] 10:18:00 Test Item Value Reference Range Interpretation Comments PHOSPHORUS (BEAKER) (test code = 5.9 mg/dL 2.3-4.7 H 604) Quality Control Associate ID - VALDEZ MCBC W/PLT COUNT & AUTO [id number] 08:15:00 Test Item Value Reference Range Interpretation [...] CONCENTRATION Decreased (CELLAVISION)(BEAKER) (test code = 3438) Quality Control Associate ID - Zaira Simons comments: Slide comments:POCT-GLUCOSE METER 2021-01-12 07:17:00 Test Item Value Reference Range Interpretation Comments POC-GLUCOSE METER 129 mg/dL 70-110 H : [facility] (BEAKER) (test code = R[place]JACQUELINE [place], 1538) [address]: Quality Control Associate/Techni won ID = [id number] for Be rki, Meti COMPREHENSIVE METABOLIC [id number] 04:04:00 Test Item Value Reference Range Interpretation [...] S NOT APPLICABLE FOR DIALYSIS PATIEN TS. Quality Control Associate ID - VALDEZ [id number] 03:58:00 Test Item Value Reference Range Interpretation Comments MAGNESIUM (BEAKER) (test code = 2.7 mg/dL 1.6-2.6 H 627) Quality Control Associate ID - VALDEZ [id number] 03:58:00 Test Item Value Reference Range Interpretation Comments PHOSPHORUS (BEAKER) (test code = 5.8 mg/dL 2.3-4.7 H 604) Quality Control Associate ID - VALDEZ MLACTIC ACID, [id number] 03:50:00 Test Item Value Reference Range Interpretation Comments LACTATE BLOOD ARTERIAL (2) 1.0 mmol/L 0.5-2.2 (BEAKER) (test code = 2874) Quality Control Associate ID - VALDEZ MOXYGEN SATURATION, [id number] 03:42:00 Test Item Value Reference Range Interpretation Comments O2 SATURATION (MEASURED) (BEAKER) 70.7 % (test code = 1455) BLOOD GAS, [id number] 03:42:00 Test Item Value Reference Range Interpretation [...] (BEAKER) (test code = 1819) 40.0 CALCIUM, [id number] 03:41:00 Test Item Value Reference Range Interpretation Comments CALCIUM IONIZED (BEAKER) (test 1.15 mmol/L 1.12-1.27 code = 698) PH, BLOOD (BEAKER) (test code = 7.44 1810) POCT-GLUCOSE [id number] 03:37:00 Test Item Value Reference Range Interpretation Comments POC-GLUCOSE METER 132 mg/dL 70-110 H : TESTED A T [facility] 6720 (BEAKER) (test code = NORM [place] [facility], 1538) [address]: Quality Control Associate/Techni won ID = [id number] for Be rki, Meti RAD, CHEST, 1 VIEW, NON [id number] 03:17:00Reason for exam:->ettShould this be performed at the bedside?->Yes [facility] : 1975 Sex: MFINAL REPORT CLINICAL INDICATION: Support lines. Comparison: 01/11/2021 at 1946 hours The patient is rotated to the left. The cardiomediastinal contours are stable. Central pulmonary vascular congestion and bilateral parenchymal opacities are unchanged. There is no pneumothorax. Support lines are stable. Signed: Domingo Duron Verified Date/Time: 01/12/2021 03:17:44 BASIC METABOLIC [id number] 22:54:00 Test Item Value Reference Range Interpretation [...] S NOT APPLICABLE FOR DIALYSIS PATIEN TS. Quality Control Associate ID - BSLACTIC ACID, [id number] 22:45:00 Test Item Value Reference Range Interpretation Comments LACTATE BLOOD ARTERIAL (2) 1.9 mmol/L 0.5-2.2 (BEAKER) (test code = 2874) Quality Control Associate ID - BSBLOOD GAS, [id number] 22:37:00 Test Item Value Reference Range Interpretation [...] Time (test code = The system which 64636-9) generated this result transmitted ref erence range: 4.0 - 7. 0 minutes. The re ference range was not u sed to interpret this result as normal/abnor mal. TEG Fibrinogen Activity 71.6 See_Comment [Au tomated message] (test code = 26085-5) The sy stem which generated this result transmitted ref erence range: 61.0 - 7 3.0 degrees. The re ference range was not u sed to interpret this result as normal/abnor mal. TEG Platelet Aggregation 64.6 See_Comment [A utomated message] (test code = 15812-8) The sy stem which generated this result transmitted ref erence range: 55.0 - 6 5.0 MM. The reference r kevin was not used to interpret this result as normal/abnor mal. TEG Fibrinolysis (test 0.0 % 0-5 code = 76979-9) TEG-H Activated Clotting 5.8 See_Comment [A utomated [...] 1414) Lab Interpretation (test Normal code = 81157-0) [facility] CenterThromboelastograph (TEG)2021-01-11 21:36:00 Test Item Value Reference Range Interpretation Comments TEG Activated Clotting 5.6 See_Comment [Aut omated message] Time (test code = The system which 65676-1) generated this result transmitted ref erence range: 4.0 - 7. 0 minutes. The re ference range was not u sed to interpret this result as normal/abnor mal. TEG Fibrinogen Activity 71.6 See_Comment [Au tomated message] (test code = 70364-2) The sy stem which generated this result transmitted ref erence range: 61.0 - 7 3.0 degrees. The re ference range was not u sed to interpret this result as normal/abnor mal. TEG Platelet Aggregation 64.6 See_Comment [A utomated message] (test code = 40136-3) The sy stem which generated this result transmitted ref erence range: 55.0 - 6 5.0 MM. The reference r kevin was not used to interpret this result as normal/abnor mal. TEG Fibrinolysis (test 0.0 % 0-5 code = 32302-9) TEG-H Activated Clotting 5.8 See_Comment [A utomated [...] 1414) Lab Interpretation (test Normal code = 30356-6) [facility] 21:36:00 Test Item Value Reference Range Interpretation Comments TEG Activated Clotting 5.6 See_Comment [Aut omated message] Time (test code = The system which 88724-4) generated this result transmitted ref erence range: 4.0 - 7. 0 minutes. The re ference range was not u sed to interpret this result as normal/abnor mal. TEG Fibrinogen Activity 71.6 See_Comment [Au tomated message] (test code = 43251-8) The sy stem which generated this result transmitted ref erence range: 61.0 - 7 3.0 degrees. The re ference range was not u sed to interpret this result as normal/abnor mal. TEG Platelet Aggregation 64.6 See_Comment [A utomated message] (test code = 06515-4) The sy stem which generated this result transmitted ref erence range: 55.0 - 6 5.0 MM. The reference r kevin was not used to interpret this result as normal/abnor mal. TEG Fibrinolysis (test 0.0 % 0-5 code = 45807-3) TEG-H Activated Clotting 5.8 See_Comment [A utomated [...] 1414) Lab Interpretation (test Normal code = 72730-4) [facility]ROM[facility]ASTO[facility] (TEG)2021-01-11 21:36:00 Test Item Value [...] CONCENTRATION Decreased (CELLAVISION)(BEAKER) (test code = 3438) Quality Control Associate ID - ToritoSimran comments: Slide comments:BLOOD GAS, [...] (test code = 1819) 60.0 OXYGEN SATURATION, [id number] 20:58:00 Test Item Value Reference Range Interpretation Comments O2 SATURATION (MEASURED) (BEAKER) 76.5 % (test code = 1455) BASIC METABOLIC [id number] 20:23:00 Test Item Value Reference Range Interpretation [...] S NOT APPLICABLE FOR DIALYSIS PATIEN TS. Quality Control Associate ID - BSBLOOD GAS, [id number] 20:19:00 Test Item Value Reference Range Interpretation [...] (BEAKER) (test code = 1819) 60.0 GLUCOSE-STAT [id number] 20:19:00 Test Item Value Reference Range Interpretation Comments GLUCOSE RANDOM (BEAKER) (test code 172 mg/dL 70-110 H = 652) HGB/HCT (H&H) - STAT [id number] 20:19:00 Test Item Value Reference Range Interpretation Comments HEMOGLOBIN (BEAKER) (test code = 9.4 GM/DL 13.0-16.8 L 410) HEMATOCRIT (BEAKER) (test code = 28.0 % 40.0-50.0 L 411) SODIUM NA-STAT [id number] 20:17:00 Test Item Value Reference Range Interpretation Comments SODIUM (BEAKER) (test code = 381) 137 meq/L 136-145 POTASSIUM-STAT [id number] 20:17:00 Test Item Value Reference Range Interpretation Comments POTASSIUM (BEAKER) (test code = 4.4 meq/L 3.6-5.5 379) CALCIUM, [id number] 20:17:00 Test Item Value Reference Range Interpretation Comments CALCIUM IONIZED (BEAKER) (test 1.21 mmol/L 1.12-1.27 code = 698) PH, BLOOD (BEAKER) (test code = 7.28 1810) [id number] 20:13:00 Test Item Value Reference Range Interpretation Comments MAGNESIUM (BEAKER) (test code = 2.7 mg/dL 1.6-2.6 H 627) Quality Control Associate ID - [id number] 20:13:00 Test Item Value Reference Range Interpretation Comments PHOSPHORUS (BEAKER) (test code = 8.8 mg/dL 2.3-4.7 H 604) Quality Control Associate ID - BSLACTIC ACID, [id number] 20:08:00 Test Item Value Reference Range Interpretation Comments LACTATE BLOOD ARTERIAL (2) 2.4 mmol/L 0.5-2.2 H (BEAKER) (test code = 2874) Quality Control Associate ID - BSRAD, CHEST, 1 VIEW, NON [id number] 20:04:00Reason for exam:- >s/p cv surgeryShould this be performed at the bedside?->Yes [facility] 1975 Sex: MFINAL [...] tube are in place. Signed: Domingo Duron [facility] Center[facility] Verified Date/Time: 01/11/2021 20:04:03 [id number] 20:02:00 Test Item Value Reference Range Interpretation Comments FIBRINOGEN LEVEL (BEAKER) (test 318 mg/dl 225-434 code = 658) [id number] 20:02:00 Test Item Value Reference Range Interpretation Comments PARTIAL THROMBOPLASTIN TIME 30.3 seconds 22.5-36.0 (BEAKER) (test code = 760) PROTHROMBIN [id number] 20:01:00 Test Item Value Reference Range Interpretation Comments PROTIME (BEAKER) 18.8 seconds 11.9-14.2 H (test code = 759) INR (BEAKER) (test 1.60 See_Comment [Automat ed message] code = 370) The system [employer] generated this result transmitted ref erence range: [...] = 413) CBC W/PLT COUNT & AUTO [id number] 19:48:00 Test Item Value Reference Range Interpretation [...] (test code = 413) POC ACTIVATED CLOTTING [id number] 18:26:00 Test Item Value Reference Range Interpretation Comments Activated Clotting Time 125 sec : 74 -137 seconds, (test code = 441) Baseline: TESTED AT [address], [facility] 30: Quality Control Associate/Techni won ID = [id number] for CAST RO[facility]IV[facility] [id number] 18:26:00 Test Item Value Reference Range Interpretation Comments Activated Clotting Time 125 sec : 74 -137 seconds, (test code = 441) Baseline: TESTED AT [address], 770 30: Quality Control Associate/Techni won ID = [id number] for CAST RO, JESSICA [facility] ACTIVATED CLOTTING [id number] 18:26:00 Test Item Value Reference Range Interpretation Comments Activated Clotting Time 125 sec : 74 -137 seconds, (test code = 441) Baseline: TESTED AT [address], [facility] 30: Quality Control Associate/Techni won ID = [id number] for CAST RO, JESSICA [facility]POCT-[id number] 18:26:00 Test Item Value Reference Range Interpretation Comments ACTIVATED CLOTTING TIME 125 sec : 74 -137 seconds, (BEAKER) (test code = Baseli ne: TESTED AT 441) [address], [facility] 30: Quality Control Associate/Techni won ID = [id number] for CA STRO, JESSICA [id number] 18:25:00 Test Item Value Reference Range Interpretation Comments ACTIVATED CLOTTING TIME 120 sec : 74 -137 seconds, (BEAKER) (test code = Baseli ne: TESTED AT 441) [address], [facility] 30: Quality Control Associate/Techni won ID = [id number] for CA STRO, JESSICA [id number] 18:25:00 Test Item Value Reference Range Interpretation Comments ACTIVATED CLOTTING TIME 571 sec : 74 -137 seconds, (BEAKER) (test code = Baseli ne: TESTED AT 441) [address], [facility] 30: Quality Control Associate/Techni won ID = [id number] for CA STRO, JESSICA [id number] 18:25:00 Test Item Value Reference Range Interpretation Comments ACTIVATED CLOTTING TIME 687 sec : 74 -137 seconds, (BEAKER) (test code = Baseli ne: TESTED AT 441) [address], [facility] 30: Quality Control Associate/Techni won ID = [id number] for CA STRO, JESSICA [id number] 18:25:00 Test Item Value Reference Range Interpretation Comments ACTIVATED CLOTTING TIME 543 sec : 74 -137 seconds, (BEAKER) (test code = Baseli ne: TESTED AT 441) [address], [facility] 30: Quality Control Associate/Techni won ID = [id number] for CA STRO, JESSICA [id number] 18:25:00 Test Item Value Reference Range Interpretation Comments ACTIVATED CLOTTING TIME 368 sec : 74 -137 seconds, (BEAKER) (test code = Baseli ne: TESTED AT 441) [address], [facility] 30: Quality Control Associate/Techni won ID = [id number] for CA STRO, JESSICA PLATELET [id number] 18:11:00 Test Item Value Reference Range Interpretation Comments PLATELET COUNT (BEAKER) (test code 70 K/CU MM 150-450 L = 756) Quality Control Associate ID - [id number] ID - [id number] ID - [id number] 17:51:00 Test Item Value Reference Range Interpretation Comments FIBRINOGEN LEVEL (BEAKER) (test 334 mg/dl 225-434 code = 658) [id number] 17:51:00 Test Item Value Reference Range Interpretation Comments PARTIAL THROMBOPLASTIN TIME 29.2 seconds 22.5-36.0 (BEAKER) (test code = 760) BLOOD GAS, [id number] 17:50:00 Test Item Value Reference Range Interpretation [...] (BEAKER) (test code = 1819) 60.0 GLUCOSE-STAT [id number] 17:50:00 Test Item Value Reference Range Interpretation Comments GLUCOSE RANDOM (BEAKER) (test code 165 mg/dL 70-110 H = 652) HGB/HCT (H&H) - STAT [id number] 17:50:00 Test Item Value Reference Range Interpretation Comments HEMOGLOBIN (BEAKER) (test code = 8.9 GM/DL 13.0-16.8 L 410) HEMATOCRIT (BEAKER) (test code = 26.0 % 40.0-50.0 L 411) CALCIUM, [id number] 17:50:00 Test Item Value Reference Range Interpretation Comments CALCIUM IONIZED (BEAKER) (test 1.16 mmol/L 1.12-1.27 code = 698) PH, BLOOD (BEAKER) (test code = 7.34 1810) PROTHROMBIN [id number] 17:50:00 Test Item Value Reference Range Interpretation Comments PROTIME (BEAKER) 21.8 seconds 11.9-14.2 H (test code = 759) INR (BEAKER) (test 1.93 See_Comment [Automat ed message] code = 370) The system [employer] generated this result transmitted ref erence range: <=5.90. The reference range was not used to int erpret this result as normal/abnormal . RECOMMENDED COUMADIN/WARFARIN INR THERAPY RANGESSTANDARD DOSE: 2.0 - 3.0 Includes: PROPHYLAXIS forvenous thrombosis, systemic embolization; TREATMENT for venous thrombosis and/or pulmonary embolus.HIGH RISK: Target INR is 2.5-3.5 for patients with mechanical heart valves.SODIUM NA-STAT [id number] 17:45:00 Test Item Value Reference Range Interpretation Comments SODIUM (BEAKER) (test code = 381) 137 meq/L 136-145 POTASSIUM-STAT [id number] 17:45:00 Test Item Value Reference Range Interpretation Comments POTASSIUM (BEAKER) (test code = 4.5 meq/L 3.6-5.5 379) SODIUM NA-STAT [id number] 17:24:00 Test Item Value Reference Range Interpretation Comments SODIUM (BEAKER) (test code = 381) 136 meq/L 136-145 POTASSIUM-STAT [id number] 17:24:00 Test Item Value Reference Range Interpretation Comments POTASSIUM (BEAKER) (test code = 4.3 meq/L 3.6-5.5 379) GLUCOSE-STAT [id number] 17:24:00 Test Item Value Reference Range Interpretation Comments GLUCOSE RANDOM (BEAKER) (test code 161 mg/dL 70-110 H = 652) HGB/HCT (H&H) - STAT [id number] 17:24:00 Test Item Value Reference Range Interpretation Comments HEMOGLOBIN (BEAKER) (test code = 8.7 GM/DL 13.0-16.8 L 410) HEMATOCRIT (BEAKER) (test code = 26.0 % 40.0-50.0 L 411) BLOOD GAS, [id number] 17:24:00 Test Item Value Reference Range Interpretation [...] (BEAKER) (test code = 1819) 21.0 CALCIUM, [id number] 17:22:00 Test Item Value Reference Range Interpretation Comments CALCIUM IONIZED (BEAKER) (test 1.34 mmol/L 1.12-1.27 H code = 698) PH, BLOOD (BEAKER) (test code = 7.33 1810) CALCIUM, [id number] 16:49:00 Test Item Value Reference Range Interpretation Comments CALCIUM IONIZED (BEAKER) (test 1.12 mmol/L 1.12-1.27 code = 698) PH, BLOOD (BEAKER) (test code = 7.46 1810) BLOOD GAS, [id number] 16:49:00 Test Item Value Reference Range Interpretation [...] (BEAKER) (test code = 1819) 97.0 GLUCOSE-STAT [id number] 16:49:00 Test Item Value Reference Range Interpretation Comments GLUCOSE RANDOM (BEAKER) (test code 152 mg/dL 70-110 H = 652) HGB/HCT (H&H) - STAT [id number] 16:49:00 Test Item Value Reference Range Interpretation Comments HEMOGLOBIN (BEAKER) (test code = 9.0 GM/DL 13.0-16.8 L 410) HEMATOCRIT (BEAKER) (test code = 26.0 % 40.0-50.0 L 411) SODIUM NA-STAT [id number] 16:48:00 Test Item Value Reference Range Interpretation Comments SODIUM (BEAKER) (test code = 381) 139 meq/L 136-145 POTASSIUM-STAT [id number] 16:48:00 Test Item Value Reference Range Interpretation Comments POTASSIUM (BEAKER) (test code = 5.0 meq/L 3.6-5.5 379) BLOOD GAS, [id number] 16:08:00 Test Item Value Reference Range Interpretation [...] (BEAKER) (test code = 1819) 70.0 POTASSIUM-STAT [id number] 16:08:00 Test Item Value Reference Range Interpretation Comments POTASSIUM (BEAKER) (test code = 5.8 meq/L 3.6-5.5 H 379) GLUCOSE-STAT [id number] 16:08:00 Test Item Value Reference Range Interpretation Comments GLUCOSE RANDOM (BEAKER) (test code 170 mg/dL 70-110 H = 652) HGB/HCT (H&H) - STAT [id number] 16:08:00 Test Item Value Reference Range Interpretation Comments HEMOGLOBIN (BEAKER) (test code = 9.0 GM/DL 13.0-16.8 L 410) HEMATOCRIT (BEAKER) (test code = 26.0 % 40.0-50.0 L 411) SODIUM NA-STAT [id number] 16:07:00 Test Item Value Reference Range Interpretation Comments SODIUM (BEAKER) (test code = 381) 135 meq/L 136-145 L BLOOD GAS, [id number] 15:42:00 Test Item Value Reference Range Interpretation [...] (BEAKER) (test code = 1819) 70.0 GLUCOSE-STAT [id number] 15:42:00 Test Item Value Reference Range Interpretation Comments GLUCOSE RANDOM (BEAKER) (test code 153 mg/dL 70-110 H = 652) HGB/HCT (H&H) - STAT [id number] 15:42:00 Test Item Value Reference Range Interpretation Comments HEMOGLOBIN (BEAKER) (test code = 9.6 GM/DL 13.0-16.8 L 410) HEMATOCRIT (BEAKER) (test code = 28.0 % 40.0-50.0 L 411) SODIUM NA-STAT [id number] 15:40:00 Test Item Value Reference Range Interpretation Comments SODIUM (BEAKER) (test code = 381) 136 meq/L 136-145 POTASSIUM-STAT [id number] 15:40:00 Test Item Value Reference Range Interpretation Comments POTASSIUM (BEAKER) (test code = 5.1 meq/L 3.6-5.5 379) BLOOD GAS, [id number] 15:13:00 Test Item Value Reference Range Interpretation [...] (BEAKER) (test code = 1819) 70.0 GLUCOSE-STAT [id number] 15:13:00 Test Item Value Reference Range Interpretation Comments GLUCOSE RANDOM (BEAKER) (test code 139 mg/dL 70-110 H = 652) HGB/HCT (H&H) - STAT [id number] 15:13:00 Test Item Value Reference Range Interpretation Comments HEMOGLOBIN (BEAKER) (test code = 8.9 GM/DL 13.0-16.8 L 410) HEMATOCRIT (BEAKER) (test code = 26.0 % 40.0-50.0 L 411) SODIUM NA-STAT [id number] 15:11:00 Test Item Value Reference Range Interpretation Comments SODIUM (BEAKER) (test code = 381) 139 meq/L 136-145 POTASSIUM-STAT [id number] 15:11:00 Test Item Value Reference Range Interpretation Comments POTASSIUM (BEAKER) (test code = 4.9 meq/L 3.6-5.5 379) [id number] 14:31:03Glenn Peraza Jr., MD 01/11/2021 8:54 PMTEE [...] aortic dissection All findings communicated to surgical team.[facility] 2021-01-11 14:31:03Glenn Peraza Jr., MD 01/11/2021 [...] aortic dissection All findings communicated to surgical team.[facility] 2021-01-11 14:31:03Glenn Peraza Jr., MD 01/11/2021 8:54 PMTEE Date: 01/11/2021 2:31 PM Sex: Male Location: WELLSequesting Physician: Trey Galvez MD Examiner: Glenn Peraza [...] aortic dissection All findings communicated to surgical team.[facility] [id number] 14:22:00 Test Item Value Reference Range Interpretation Comments GLUCOSE RANDOM (BEAKER) (test code 109 mg/dL 70-110 = 652) SODIUM NA-STAT [id number] 14:22:00 Test Item Value Reference Range Interpretation Comments SODIUM (BEAKER) (test code = 381) 138 meq/L 136-145 POTASSIUM-STAT [id number] 14:22:00 Test Item Value Reference Range Interpretation Comments POTASSIUM (BEAKER) (test code = 4.4 meq/L 3.6-5.5 379) BLOOD GAS, [id number] 14:22:00 Test Item Value Reference Range Interpretation [...] = 1819) 100.0 HGB/HCT (H&H) - STAT [id number] 14:22:00 Test Item Value Reference Range Interpretation Comments HEMOGLOBIN (BEAKER) (test code = 10.1 GM/DL 13.0-16.8 L 410) HEMATOCRIT (BEAKER) (test code = 30.0 % 40.0-50.0 L 411) POCT-GLUCOSE [id number] 12:53:00 Test Item Value Reference Range Interpretation Comments POC-GLUCOSE METER 121 mg/dL 70-110 H : TESTED A T [facility] 6720 (BEAKER) (test code [facility], = 1538) [id number]: Quality Control Associate/Techni won ID = [id number] for Maikel robledo (contract), Syt damien RAD, CHEST, 1 VIEW, NON [id number] 10:43:00Reason for exam:->ettShould this be performed at the bedside?->Yes [facility] : 1975 Sex: MFINAL REPORT RAD, CHEST, 1 VIEW, NON DEPT INDICATION: ett COMPARISON: Prior day's exam FINDINGS: Portable frontal view of the chest. IMPRESSION: Support Lines: Stable. Lungs and pleura: Stable patchy bilateral airspace disease. No pneumothorax.Heart and mediastinum: Stable contours. Additional findings: None. Signed: JR Bebeto, Taye Taylor Verified Date/Time: 01/11/2021 10:43:44 Reading Location: [facility] Radiology Reading Room BASIC METABOLIC [id number] 10:11:00 Test Item Value Reference Range Interpretation [...] S NOT APPLICABLE FOR DIALYSIS PATIEN TS. Quality Control Associate ID - VIRGILIO [id number] 10:10:00 Test Item Value Reference Range Interpretation Comments MAGNESIUM (BEAKER) (test code = 2.3 mg/dL 1.6-2.6 627) Quality Control Associate ID - VIRGILIO [id number] 10:10:00 Test Item Value Reference Range Interpretation Comments PHOSPHORUS (BEAKER) (test code = 6.2 mg/dL 2.3-4.7 H 604) Quality Control Associate ID - VIRGILIO BAILEYOOD GAS, [id number] 09:38:00 Test Item Value Reference Range Interpretation [...] (BEAKER) (test code = 1819) 40.0 CALCIUM, [id number] 09:34:00 Test Item Value Reference Range Interpretation Comments CALCIUM IONIZED (BEAKER) (test 1.19 mmol/L 1.12-1.27 code = 698) PH, BLOOD (BEAKER) (test code = 7.44 1810) POCT-GLUCOSE [id number] 06:58:00 Test Item Value Reference Range Interpretation Comments POC-GLUCOSE METER 108 mg/dL 70-110 : TESTED A T [facility] 6720 (BEAKER) (test code = RAYMONJACQUELINE Tenorio [facility], 1538) [address]: Quality Control Associate/Techni won ID = [id number] for September COMPREHENSIVE METABOLIC [id number] 06:13:00 Test Item Value Reference Range Interpretation [...] S NOT APPLICABLE FOR DIALYSIS PATIEN TS. Quality Control Associate ID - LINA LOperator ID - PIRAFY LCBC W/PLT COUNT & AUTO [id number] 06:08:00 Test Item Value Reference Range Interpretation [...] CONCENTRATION Decreased (CELLAVISION)(BEAKER) (test code = 3438) Quality Control Associate ID - Zaira Simons comments: Slide comments:MAGNESIUM 2021-01-11 04:57:00 Test Item Value Reference Range Interpretation Comments MAGNESIUM (BEAKER) (test code = 2.3 mg/dL 1.6-2.6 627) Quality Control Associate ID - LINA [id number] 04:57:00 Test Item Value Reference Range Interpretation Comments PHOSPHORUS (BEAKER) (test code = 6.4 mg/dL 2.3-4.7 H 604) Quality Control Associate ID - LINA LCALCIUM, [id number] 04:43:00 Test Item Value Reference Range Interpretation Comments CALCIUM IONIZED (BEAKER) (test 1.13 mmol/L 1.12-1.27 code = 698) PH, BLOOD (BEAKER) (test code = 7.51 1810) BLOOD GAS, [id number] 04:42:00 Test Item Value Reference Range Interpretation [...] (BEAKER) (test code = 1819) 40.0 SARS-COV2/RT-PCR ([facility])2021-01-11 02:44:00 Test Item Value Reference Range Interpretation Comments SARS-COV2/RT-PCR Negative Negative The SARS-Co V-2 target (test code = 0062295) nuclei c acids are not detected in [...] SARS-CoV-2/Flu/RSV by their healthcare provider. Results from [facility] Xpert Xpress SARS-CoV-2/Flu/RSV test should be [...] of the Act.Fact Sheet for Healthcare Providers :https://www.GMG[employer]/Documents/Xpert%20Xpress%20SARS%20CoV-2/Fact%20Sheets/3 02-3902%68UBGY-VUM-5%20HEALTHCARE%20PROVIDERS%20FACT%20SHEET.pdfFact Sheet for Healthcare Patients:https://www.GMG[employer] /Documents/Xpert%20Xpress%20SARS%20Cov-2/Fact%20Sheets/302-3801%19SZZE-FEG-6%20P ATIENT%20FACT%20SHEET.pdfPOCT-GLUCOSE [id number] 00:19:00 Test Item Value Reference Range Interpretation Comments POC-GLUCOSE METER 88 mg/dL 70-110 : TESTED A T [facility] 6720 (BEAKER) (test code = NORM Ten[place], 1538) [address]: Quality Control Associate/Techni won ID = [id number] for Manuelito Busby [id number] 00:01:00 Test Item Value Reference Range Interpretation Comments PHOSPHORUS (BEAKER) (test code = 9.7 mg/dL 2.3-4.7 HH 604) Quality Control Associate ID - BSBASIC METABOLIC [id number] 00:00:00 Test Item Value Reference Range Interpretation [...] S NOT APPLICABLE FOR DIALYSIS PATIEN TS. Quality Control Associate ID - [id number] 23:57:00 Test Item Value Reference Range Interpretation Comments MAGNESIUM (BEAKER) (test code = 2.8 mg/dL 1.6-2.6 H 627) Quality Control Associate ID - BSCALCIUM, [id number] 23:42:00 Test Item Value Reference Range Interpretation Comments CALCIUM IONIZED (BEAKER) (test 1.10 mmol/L 1.12-1.27 L code = 698) PH, BLOOD (BEAKER) (test code = 7.43 1810) 2D Echo W/Doppler(CW/PW/Color)2021-01-10 18:38:44Ejection FractionSLEH ECHO HEARTLAB MKCKESSON CPACSInterface, External Ris In - 01/10/2021 6:39 PM C DTTransthoracic Echocardiography Report (TTE) Demographics Patient Name CROW KAUR Date of Study 01/10/2021 SR. Gender Male Visit Number [id number] Race Unknown Room Number C826 Number Date of 1975 Referring Physician Taye Villatoro NP Age 45 year(s) [employer] Estela Mann [facility] Corporate Executive Radha Spence [facility] Interpreting Shama Duran MD Physician Procedure Type [...] 72.37 mmHg Pulmonic Valve Estimated PASP: 92.37 [facility] W/Doppler(CW/PW/Color)2021-01-10 18:38:44Ejection FractionSLEH ECHO HEARTLAB MKCKESSON CPACSInterface, External Ris In - 01/10/2021 6:39 PM C DTTransthoracic Echocardiography Report (TTE) Demographics Patient Name CROW KAUR Date of Study 01/10/2021 SR. 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 Radha Spence [facility] Interpreting Shama Duran MD Physician Procedure Type [...] mmHg Pulmonic Valve Estimated PASP: 92.37 mmHgCHI [facility], [id number] 17:13:00 Test Item Value Reference Range Interpretation Comments FIBRINOGEN LEVEL (DEISIAKER) (test 417 mg/dl 225-434 code = 658) [id number] 17:13:00 Test Item Value Reference Range Interpretation [...] CONCENTRATION Decreased (CELLAVISION)(BEAKER) (test code = 3438) Quality Control Associate ID - Samantha comments: Slide comments:PROTHROMBIN TIME/INR 2021-01-10 17:12:00 Test Item Value Reference Range Interpretation Comments PROTIME (BEAKER) 16.0 seconds 11.9-14.2 H (test code = 759) INR (BEAKER) (test 1.30 See_Comment [Automat ed message] code = 370) The system [employer] generated this result transmitted ref erence range: <=5.90. The reference range was not used to int erpret this result as normal/abnormal . RECOMMENDED COUMADIN/WARFARIN INR THERAPY RANGESSTANDARD DOSE: 2.0 - 3.0 Includes: PROPHYLAXIS forvenous thrombosis, systemic embolization; TREATMENT for venous thrombosis and/or pulmonary embolus.HIGH RISK: Target INR is 2.5-3.5 for patients with mechanical heart valves.Blood gas, [id number] 16:44:00 Test Item Value Reference Range Interpretation Comments pH, Roque (test code = 7.28 7.32-7.42 L 2746-6) pCO2, Roque (test code = 56 See_Comment H [Aut omated 125) message] The sy stem which generated this result transmitted reference range : 41 - 51 mm Hg. The reference range was not used to interpret this result as normal/abnormal . pO2, Roque (test code = 43 See_Comment H [Auto mated 5415-2) message] The sy stem which generated this result transmitted reference range : 25 - 40 mm Hg. The reference range was not used to interpret this result as normal/abnormal . O2 Sat, Roque (test code 71.2 % 40-70 H = 2711-0) HCO3, Roque (test code = 26 mmol/L 21-29 09013-8) Base Excess, Roque (test -1.3 mmol/L -2-3 code = 1927-3) Patient Temperature 37.3 (test code = 8310-5) FIO2 (test code = 1819) 50 Lab Interpretation Abnormal (test code = 30225-1) [facility], [id number] 16:44:00 Test Item Value Reference Range Interpretation [...] Roque (test code = 26 mmol/L 21-29 51679-7) Base Excess, Roque (test -1.3 mmol/L -2-3 code = 1927-3) Patient Temperature 37.3 (test code = 8310-5) FIO2 (test code = 1819) 50 Lab Interpretation Abnormal (test code = 76852-7) [facility], [id number] 16:44:00 Test Item Value Reference Range Interpretation [...] Roque (test code = 26 mmol/L 21-29 96529-4) Base Excess, Roque (test -1.3 mmol/L -2-3 code = 1927-3) Patient Temperature 37.3 (test code = 8310-5) FIO2 (test code = 1819) 50 Lab Interpretation Abnormal (test code = 89444-9) [facility] [id number] 16:44:00 Test Item Value Reference Range Interpretation [...] FIO2 (BEAKER) (test code = 1819) 50.0 [id number] 16:42:00 Test Item Value Reference Range Interpretation Comments PHOSPHORUS (BEAKER) (test code = 10.1 mg/dL 2.3-4.7 HH 604) Quality Control Associate ID - ADMINCOMPREHENSIVE METABOLIC [id number] 16:41:00 Test Item Value Reference Range Interpretation [...] S NOT APPLICABLE FOR DIALYSIS PATIEN TS. Quality Control Associate ID - [id number] 16:30:00 Test Item Value Reference Range Interpretation Comments MAGNESIUM (BEAKER) (test code = 2.8 mg/dL 1.6-2.6 H 627) Quality Control Associate ID - ADMINLactic acid, [id number] 16:25:00 Test Item Value Reference Range Interpretation Comments Lactate, Venous (test code 1.21 mmol/L 0.5-2.2 = 2872) CARLEY (test code = CARLEY) Quality Control Associate ID - ADMIN Lab Interpretation (test Normal code = 04763-2) [facility], [id number] 16:25:00 Test Item Value Reference Range Interpretation Comments Lactate, Venous (test code 1.21 mmol/L 0.5-2.2 = 2872) CARLEY (test code = CARLEY) Quality Control Associate ID - ADMIN Lab Interpretation (test Normal code = 72440-5) [facility], [id number] 16:25:00 Test Item Value Reference Range Interpretation Comments Lactate, Venous (test code 1.21 mmol/L 0.5-2.2 = 2872) CARLEY (test code = CARLEY) Quality Control Associate ID - ADMIN Lab Interpretation (test Normal code = 15989-2) [facility], [id number] 16:25:00 Test Item Value Reference Range Interpretation Comments LACTATE BLOOD VENOUS (2) (BEAKER) 1.21 mmol/L 0.50-2.20 (test code = 2872) Quality Control Associate ID - ADMINCBC W/PLT COUNT & AUTO [id number] 16:13:00 Test Item Value Reference Range Interpretation [...] = 2801) RAD, CHEST, 1 VIEW, NON [id number] 16:00:00Reason for exam:->ETTShould this be performed at the bedside?->Yes [facility] 1975 Sex: [...] MDReport Verified Date/Time: 01/10/2021 16:00:56 Reading Location: [facility] POCT-GLUCOSE [id number] 15:13:00 Test Item Value Reference Range Interpretation Comments POC-GLUCOSE METER 114 mg/dL 70-110 H : TESTED A T [facility] 6720 (TAMARA) (test code = NORM [place] [facility], 1538) [address]: Quality Control Associate/Techni won ID = [id number] for ABRAN PALOMINO, TUNNELED CATHETER [id number] 10:49:00FINAL REPORT TUNNELED DIALYSIS CATHETER PLACEMENT, UNDER [...] MDReport Verified Date/Time: 02/03/2019 10:49:11 Reading Location: [place] [address] Angio Body Reading Room COMPREHENSIVE METABOLIC [id number] 07:04:00 Test Item Value Reference Range Interpretation [...] (test code = 413) HEPATITIS B SURFACE [id number] 01:25:00 Test Item Value Reference Range Interpretation Comments HEPATITIS B SURFACE ANTIGEN (2) Nonreactive Nonreactive (BEAKER) (test code = 2585) BASIC METABOLIC [id number] 01:10:00 Test Item Value Reference Range Interpretation [...] S NOT APPLICABLE FOR DIALYSIS PATIEN TS. [id number] 01:03:00 Test Item Value Reference Range Interpretation Comments POTASSIUM (BEAKER) (test code = 5.4 meq/L 3.5-5.1 H 379) PROTHROMBIN TIME/[id number] 01:01:00 Test Item Value Reference Range Interpretation [...] for patients wiht mechanical heart valves.BASIC METABOLIC [id number] 19:02:00 Test Item Value Reference Range Interpretation [...]
[2021-08-22] MEDS ORDERED: LIDOCAINE 1% MPF 5 ML VIAL ONE (17:13)
[2021-08-22] MEDS ORDERED: TETANUS & DIPHTHERIA TOX,ADULT 0.5 ML VIAL ONE (17:13)
--- NOTE | 2021-08-22 17:44 | RAD REPORT ---
EXAM DESCRIPTION: RAD - Hand Right 3 View - 08/22/2021 5:24 pm CLINICAL HISTORY: laceration Pain and swelling COMPARISON: No comparisons FINDINGS: No fracture or radiopaque foreign body seen.
--- NOTE | 2021-08-22 17:58 | ER ---
Nurse's Notes [facility] Name: Jermaine Rivera Age: 46 yrs Sex: Male : 1975 Arrival Date: 08/22/2021 Time: 16:25 Bed 24 Private MD: Swati Corrigan Diagnosis: Laceration without foreign body of finger without damage to nail Presentation: 08/22 16:28 Chief complaint: Patient states: "I got a bad leg and I was falling and the only thing ab2 to grab was a window and my hand went through it." Pt states he takes Coumadin. Coronavirus screen: Client denies travel out of the [place] in the last 14 days. At this time, the client does not indicate any symptoms associated with coronavirus-19. Coronavirus screen: Vaccine status: Patient reports receiving the 2nd dose of the covid vaccine. Ebola Screen: Patient negative for fever greater than or equal to 101.5 degrees Fahrenheit, and additional compatible Ebola Virus Disease symptoms Patient denies exposure to infectious person. Patient denies travel to an Ebola-affected area in the 21 days before illness onset. No symptoms or risks identified at this time. Initial Sepsis Screen: Does the patient meet any 2 criteria? No. Patient's initial sepsis screen is negative. Does the patient have a suspected source of infection? No. Patient's initial sepsis screen is negative. Risk Assessment: Do you want to hurt yourself or someone else? Patient reports no desire to harm self or others. Onset of symptoms is unknown. 16:28 Method Of Arrival: Ambulatory ab2 16:28 Acuity: FERNANDA 4 ab2 Triage Assessment: 16:31 General: Appears in no apparent distress. uncomfortable, Behavior is calm, cooperative, ab2 appropriate for age. Pain: Complains of pain in right hand Pain currently is 2 out of 10 on a pain scale. Historical: - Allergies: 16:28 No Known Allergies; ab2 - PMHx: 16:28 Brain bleed; CVA; Dialysis; Hypertension; Renal Disease; ab2 - PSHx: 16:28 heart surgery valve replaced; ab2 - Immunization history:: Adult Immunizations up to date. - Social history:: Smoking status: Patient denies any tobacco usage or history of. Screenin:01 Abuse screen: Denies threats or abuse. Nutritional screening: No deficits noted. lr4 Tuberculosis screening: No symptoms or risk factors identified. Fall Risk None identified. Fall in past 12 months (25 points). Secondary diagnosis (15 points) No IV (0 pts). Ambulatory Aid- None/Bed Rest/Nurse Assist (0 pts). Gait- Normal/Bed Rest/Wheelchair (0 pts) Mental Status- Oriented to own ability (0 pts). Total Ceja Fall Scale indicates Low Risk Score (25-44 pts). Placed close to Nursing Station Frequent Obs/Assesments occuring Family Present and informed to notify staff if they need to leave bedside As available Patient and Family Educated on Fall Prevention Program and strategies. Assessment: 17:00 General: Appears in no apparent distress. comfortable, Behavior is calm, cooperative. lr4 Pain: Denies pain. Neuro: No deficits noted. Cardiovascular: No deficits noted. Respiratory: No deficits noted. Injury Description: Laceration sustained to right hand/3rd digit, proximal end is clean, superficial, 0.5 to 2.5 cm long, bleeding moderately, was sustained 30-60 minutes ago. a small amount of bleeding noted at this time. A dressing was applied. Vital Signs: 16:28 BP 91 / 69; Pulse 82; Resp 18; Temp 98.6(TE); Pulse Ox 98% on R/A; Weight 82.1 kg; ab2 Height 6 ft. 0 in. (182.88 cm); Pain 2/10; 18:09 BP 99 / 74; Pulse 85; Resp 20; Pulse Ox 98% on R/A; lr4 16:28 Body Mass Index 24.55 (82.10 kg, 182.88 cm) ab2 ED Course: 16:25 Patient arrived in ED. mr 16:25 Swati Corrigan is Private Physician. mr 16:29 Brian Blackman NP is PHCP. pm1 16:29 Pierce Mcdonald DO is Attending Physician. pm1 16:31 Triage completed. ab2 16:31 Arm band placed on left wrist. ab2 17:00 Mariely Medrano, CHRISTOPHE is Primary Nurse. lr4 17:17 Assist provider with laceration repair Set up tray. lr4 17:18 Patient has correct armband on for positive identification. Bed in low position. Call lr4 light in reach. Side rails up X 1. Adult w/ patient. 17:24 Hand Right 3 View XRAY In Process Unspecified. EDMS 18:09 Patient did not have IV access during this emergency room visit. lr4 Administered Medications: 17:12 Drug: Tetanus-Diphtheria Toxoid Adult 0.5 ml {Family Development Extension Specialist: [employer]. Exp: lr4 10/28/2022. Lot #: [id number]. } Route: IM; Site: left deltoid; 17:17 Follow up: Response: No adverse reaction lr4 17:13 Drug: Lidocaine (1 %) 5 ml {Note: given by provider.} Volume: 5 ml; Route: Infiltration;lr4 Outcome: 17:17 Condition: stable lr4 17:57 Discharge ordered by . pm1 18:08 Discharged to home ambulatory. lr4 18:08 Discharge instructions given to patient. 18:10 Patient left the ED. lr4 Signatures: Dispatcher [employer] [facility] Nazanin Stroud YehudaBrian NP CAUSTIC CRESYLATE SHIFT SUPERINTENDENT pm1 Soy Baum ab2 Mariely Medrano, RN RN lr4
--- NOTE | 2021-08-22 17:58 | EDPHYS ---
Physician Documentation [facility] Name: Jermaine Rivera Age: 46 yrs Sex: Male : 1975 Arrival Date: 08/22/2021 Time: 16:25 Bed 24 Private MD: Swati Corrigan ED Physician Pierce Mcdonald HPI: 08/22 17:52 This 46 yrs old Black Male presents to ER via Ambulatory with complaints of Finger pm1 laceration. 17:52 The patient or guardian reports a laceration. The complaints affect the dorsal aspect pm1 of proximal phalanx of right middle finger. Context: The problem was sustained at home, resulted from accidentally putting his right hand through glass and he tripped and had to support a fall. Onset: The symptoms/episode began/occurred just prior to arrival. Modifying factors: The symptoms are alleviated by pressure to area, the symptoms are aggravated by nothing. Associated signs and symptoms: Pertinent negatives: cyanosis distally, decreased sensation distally, numbness distally, tingling distally, Decreased range of motion to injured finger. Severity of symptoms: in the emergency department the symptoms are unchanged. The patient has not experienced similar symptoms in the past. The patient has not recently seen a physician. Historical: - Allergies: 16:28 No Known Allergies; ab2 - PMHx: 16:28 Brain bleed; CVA; Dialysis; Hypertension; Renal Disease; ab2 - PSHx: 16:28 heart surgery valve replaced; ab2 - Immunization history:: Adult Immunizations up to date. - Social history:: Smoking status: Patient denies any tobacco usage or history of. ROS: 17:52 Constitutional: Negative for fever, chills, and weight loss, Cardiovascular: Negative pm1 for chest pain, palpitations, and edema, Respiratory: Negative for shortness of breath, cough, wheezing, and pleuritic chest pain. 17:52 Neuro: Negative for headache, weakness, numbness, tingling, and seizure. 17:52 MS/extremity: Positive for laceration, of the dorsal aspect of proximal phalanx of right middle finger. 17:52 Skin: Positive for laceration(s), of the dorsal aspect of proximal phalanx of right middle finger. 17:52 All other systems are negative. Exam: 17:52 Constitutional: This is a well developed, well nourished patient who is awake, alert, pm1 and in no acute distress. Head/Face: Normocephalic, atraumatic. 17:52 Cardiovascular: Exam negative for acute changes, Rate: normal, Rhythm: regular, Pulses: no pulse deficits are appreciated. 17:52 Respiratory: Exam negative for acute changes, respiratory distress, shortness of breath. 17:52 Musculoskeletal/extremity: Extremities: grossly normal except: noted in the dorsal aspect of proximal phalanx of right middle finger: laceration. 17:52 Skin: injury, laceration(s), the wound is approximately 2 cm(s), of the dorsal aspect of proximal phalanx of right middle finger, that can be described as clean, no foreign body, linear. 17:52 Neuro: Exam negative for acute changes, Orientation: is normal, Mentation: is normal, Motor: is normal, moves all fours. Vital Signs: 16:28 BP 91 / 69; Pulse 82; Resp 18; Temp 98.6(TE); Pulse Ox 98% on R/A; Weight 82.1 kg; ab2 Height 6 ft. 0 in. (182.88 cm); Pain 2/10; 18:09 BP 99 / 74; Pulse 85; Resp 20; Pulse Ox 98% on R/A; lr4 16:28 Body Mass Index 24.55 (82.10 kg, 182.88 cm) ab2 Laceration: 17:52 Wound Repair of 2cm ( 0.8in ) subcutaneous laceration to dorsal aspect of proximal pm1 phalanx of right middle finger. Linear shaped.. Distal neuro/vascular/tendon intact. Anesthesia: Digital block administered with 2 mls of 1% lidocaine. Wound prep: Extensive cleansing with betadine with hibiclenz by sc, Wound irrigation with saline by sc, Wound explored extensively, Copious irrigation. Skin closed with 7 4-0 Prolene using simple sutures and sterile technique. Dressed with Neosporin, 4x4's. Patient tolerated well. MDM: 16:41 Patient medically screened. pm1 17:52 Data reviewed: vital signs. Data interpreted: Pulse oximetry: on room air is 98 %. pm1 Interpretation: normal. Counseling: I had a detailed discussion with the patient and/or guardian regarding: the historical points, exam findings, and any diagnostic results supporting the discharge/admit diagnosis, radiology results, the need for outpatient follow up, a family practitioner, a hand specialist, to return to the emergency department if symptoms worsen or persist or if there are any questions or concerns that arise at home. 08/22 16:55 Order name: Hand Right 3 View XRAY; Complete Time: 17:52 pm1 08/22 16:52 Order name: Dressing - Wound; Complete Time: 17:08 pm1 08/22 16:52 Order name: Gloves, Sterile; Complete Time: 17:08 pm1 08/22 16:52 Order name: Prolene, Sutures; Complete Time: 17:08 pm1 08/22 16:52 Order name: Setup Suture Tray; Complete Time: 17:08 pm1 08/22 17:58 Order name: Finger Splint; Complete Time: 18:07 pm1 Administered Medications: 17:12 Drug: Tetanus-Diphtheria Toxoid Adult 0.5 ml {Stage Hand: [employer]. Exp: lr4 10/28/2022. Lot #: [id number]. } Route: IM; Site: left deltoid; 17:17 Follow up: Response: No adverse reaction lr4 17:13 Drug: Lidocaine (1 %) 5 ml {Note: given by provider.} Volume: 5 ml; Route: Infiltration;lr4 Disposition: 21:48 Co-signature as Attending Physician, Pierce Mcdonald DO I agree with the assessment and ms3 plan of care. Disposition Summary: 08/22/21 17:57 Discharge Ordered Location: Home pm1 Problem: new pm1 Symptoms: have improved pm1 Condition: Stable pm1 Diagnosis - Laceration without foreign body of finger without damage to nail pm1 Followup: pm1 - With: Emergency Department - When: As needed - Reason: Worsening of condition Followup: pm1 - With: Private Physician - When: 10 - 14 days - Reason: Recheck today's complaints, Continuance of care, Re-evaluation by your physician Discharge Instructions: - Discharge Summary Sheet pm1 - Cast or Splint Care, Adult pm1 - Laceration Care, Adult, [id number] pm1 Forms: - Medication Reconciliation Form pm1 - Thank You Letter pm1 - Antibiotic Education pm1 - Prescription Opioid Use pm1 Prescriptions: - Cephalexin 500 mg Oral Capsule - take 1 capsule by ORAL route every 12 hours for 10 days; 20 capsule; Refills: pm1 0, Product Selection Permitted Signatures: Dispatcher [employer] EDBrian Adrian, BRICKLAYER BRICKLAYER pm1 Pierce Mcdonald, DO HAIR ms3 Soy Baum ab2 Mariely Medrano, RN RN lr4
[2021-08-22 19:10] VITALS: TEMP 98.6; O2SAT 98
[2021-08-22 19:12] VITALS: BP 99/74
== END 2021-08-22 18:10 | disposition home or self-care (01) ==
LOC: ER 16:24
PROC: 0JQJ0ZZ Repair Right Hand Subcutaneous Tissue and Fascia, Open Approach (ICD-10-PCS; principal; 2021-08-22)
DX: S61.212A Laceration without foreign body of right middle finger without damage to nail, initial encounter (principal); W01.110A Fall on same level from slipping, tripping and stumbling with subsequent striking against sharp glass, initial encounter; I12.0 Hypertensive chronic kidney disease with stage 5 chronic kidney disease or end stage renal disease; N18.6 End stage renal disease; Z23 Encounter for immunization; Z99.2 Dependence on renal dialysis; Z95.4 Presence of other heart-valve replacement
CPT/HCPCS: 90471; 90714; 99284

== ENCOUNTER 2021-09-25 17:43 | Emergency (ER) | payer OTHER ==
--- OUTSIDE RECORDS SUMMARY | 2021-09-25 18:12 | XMS REPORT | Continuity of Care Document ---
:1975 Author Organization [facility] t Address [address] [place] [address] Care Team Providers Name Role Phone Pcp [...] Number Effective Date Expiration Date S harish [facility] STAR [id number] 2017 PLUS 00:00:00 [place] [id number] 2019 00:00:00 [facility] STAR [id number] 2018 PLAN 00:00:00 Problems Condition Condition Condition Status Onset Resolution Last Treating Co mments Source Name Details Category Date Date Treatment Clinician Date s/p s/p Disease Active [facility] MVReplace MVReplace 01-11 [facility] - ([facility] - ([facility]) - 00:00: Medica l Omar - Omar - 00 Cent er 01/11/21 01/11/21 Endocardit Endocardit Disease Active [facility] is is 01-11 [facility] - 00:00: Medical 00 Center Mitral Mitral Disease Active [facility]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 01-[address] [facility] - regurgitat regurgitat 00:00: Me dical ion ion 00 Center ESRD (end ESRD (end Disease Active Overview: Univers stage stage 3-11 Added ity of renal renal 00:00: automatic [place] disease) disease) 00 ally from [facility] request Branch for surgery [id number] HYPERTENSI Diagnosis Active 2018-062019-04-02 Memoria VE THALAMI 0-06 22:34:00 l 00:00: [place] HYPERTENSI 00 VE THALAMI Active 03/15/2019 [facility] Hyperkalem Hyperkalem Disease Active [facility] ia ia 02-02 - 00:00: Medical 00 Center HYPERTENSI Diagnosis Active 2019-04-02 Memoria VE 22:34:00 l EMERGENCY [place] HYPERTENSI VE EMERGENCY Active [facility] Shock Shock Disease Active [facility] Right Right Disease Active [facility] ventricula ventricula [facility] - r r Medical dysfunctio dysfunctio Ce nter n n Acute Acute Disease Active [facility] blood loss blood loss [facility] anemia anemia [facility] Thrombocyt Thrombocyt Disease Active [facility] openia openia [facility] Hyperglyce Hyperglyce Disease Active [facility] sylwia sylwia [facility] ESRD (end ESRD (end Disease Active [facility] stage stage [facility] - renal renal Medical disease) disease) Center on on dialysis dialysis Delirium Delirium Disease Active [facility] t due to due to [facility] medical medical Medical condition condition Cent er with with behavioral behavioral disturbanc disturbanc e e Essential Essential Disease Active [facility] hypertensi hypertensi [facility] - on on Medical Center Cardiac Cardiac Disease Active [facility] arrest arrest [facility] Cardiogeni Cardiogeni Disease Active [facility] c shock c shock [facility] PEA PEA Disease Active [facility] (Pulseless (Pulseless [facility] - electrical electrical Me dical activity) activity) Cent er Hypovolemi Hypovolemi Disease Active [facility] c shock c shock [facility] Hemorrhagi Hemorrhagi Disease Active [facility] c shock c shock [facility] Metabolic Metabolic Disease Active [facility] acidosis acidosis [facility] Lactic Lactic Disease Active [facility] acidosis acidosis [facility] Hypoglycem Hypoglycem Disease Active [facility] ia ia [facility] Hemothorax Hemothorax Disease Active C [facility] on left on left [facility] Coagulopat Coagulopat Disease Active C [facility] hy hy [facility] Vasogenic Vasogenic Disease Active [facility] shock shock [facility] Anemia, Anemia, Disease Active [facility] unspecifie unspecifie [facility] - d type d type Medical Center Acute Acute Disease Active [facility] respirator respirator [facility] - y failure y failure Medi diallo with with Center hypoxia hypoxia Allergies, Adverse Reactions, Alerts Allergy Allergy Status Severity Reaction(s) Onset Inactive Treating Comm ents Source Name Type Date Date Clinician NO KNOWN Drug Active Univers ALLERGIE Class ity of [facility] NO KNOWN Allergy Active [facility] ALLERGIE [facility] Social History Social Habit Start Date Stop Date Quantity Comments Source History SDOH [facility] - Alcohol Std Medical Cente r Drinks History SDPA [facility] - Alcohol Binge Medical Eleuterio ter Exposure to Not sure [facility] - SARS-CoV-2 [facility] Center (event) Sex Assigned At [facility] Alcohol intake 2021-01-23 2021-01-[address] [facility] - 00:00:00 00:00:00 non-drinker of Medical Ce nter alcohol (finding) Tobacco use and 2019-08-19 2019-08-19 Never used Universit y of exposure 00:00:00 00:00:00 [facility] History SDOH 2019-02-18 2019-02-[address] [facility] - Alcohol Frequency 00:00:00 00:00:00 Medical Center Smoking Status Start Date Stop Date Source Never smoker [facility] Unknown if ever smoked [facility] Medications Ordered Filled Start Stop Current [...] MCG 16:49: mouth Medical capsule 21 daily. [facility] cholecalcif Yes 5000U QD Take 5,[address] dori, 8-03 Units by [facility] - vitamin D3, 16:49: mouth Medic al 5,000 unit 21 daily. [facility] Tab hydrALAZINE Yes 100mg [id number] Take [address] (APRESOLINE 8-03 [id number] mg by L ukes - ) 100 MG 16:49: 3D mouth 3 Medica l tablet 21 (three) Center times daily. ramipril Yes 10mg QD Take [address] (ALTACE) 10 8-03 by mouth Luke s - MG capsule 16:49: daily. Medic al 21 [facility] sevelamer 0 Yes 800mg Take [address] (RENVELA) 8-03 mg by [facility] - 800 mg 16:49: mouth 3 Medical tablet 21 (three) Center times daily with meals. calcitriol Yes .5ug QD Take 0.[address] (ROCALTROL) 8-03 mcg by [facility]ukes - 0.5 MCG 16:49: mouth Medical capsule 21 daily. [facility] cholecalcif Yes 5000U QD Take 5,[address] dori, 8-03 Units by [facility] - vitamin D3, 16:49: mouth Medic al 5,000 unit 21 daily. Center Tab hydrALAZINE 0 Yes 100mg Q.[id number] Take [address] (APRESOLINE 8-03 [id number] mg by L ukes - ) 100 [...] 21 daily. Center Tab hydrALAZINE Yes 100mg Q.[id number] Take [address] (APRESOLINE 8-03 [id number] mg by L ukes - ) 100 [...] MG 00:00: mouth Medical tablet 00 daily. [facility] terazosin 0 Yes 1{capsu Take [address] (HYTRIN) 10 5-24 le} capsule by [facility] - MG capsule 00:00: mouth 2 Medi diallo 00 (two) Center times daily as needed. minoxidiL Yes 1{tbl} QD Take [address] (LONITEN) 5-24 tablet by [facility] - 2.5 MG 00:00: mouth Medical tablet 00 daily. [facility] terazosin 0 Yes 1{capsu Take [address] (HYTRIN) 10 5-24 le} capsule by [facility] - MG capsule 00:00: mouth 2 Medi diallo 00 (two) Center times daily as needed. metoprolol 0 Yes 1{tbl} QD Take [address] tartrate 5-17 tablet by Lukes - (LOPRESSOR) 00:00: mouth Medic al 100 MG 00 daily. [facility] tablet metoprolol 0 Yes 1{tbl} QD Take [address] tartrate 5-17 tablet by Lukes - (LOPRESSOR) 00:00: mouth Medic al 100 MG 00 daily. [facility] tablet metoprolol 0 Yes 1{tbl} QD Take [address] tartrate 5-17 tablet by Lukes - (LOPRESSOR) 00:00: mouth Medic al 100 MG 00 daily. [facility] tablet RAMIPRIL 2019-0 Yes Take by [facility] OR[facility] 6-08 mouth. ity of 14:19: [address] SEVELAMER 2019-0 Yes Take by Univ ers HCL ORAL 6-08 mouth. ity of 14:19: [address] METOPROLOL 2019-0 Yes Take by Uni vers TARTRATE 6-08 mouth. ity of ORAL 14:19: [address] terazosin 2019-0 Yes Take by Univ ers HCl (HYTRIN 6-08 mouth. ity of ORAL) 14:19: [address] RAMIPRIL 2020-0 Yes Take by Unive rs ORAL 6-08 mouth. ity of 14:19: [address] SEVELAMER 2019-0 Yes Take by Univ ers HCL ORAL 6-08 mouth. ity of 14:19: [address] METOPROLOL 2019-0 Yes Take by Uni vers TARTRATE 6-08 mouth. ity of ORAL 14:19: [address] terazosin 0 Yes Take by Univ ers HCl (HYTRIN 6-08 mouth. ity of ORAL) 14:19: [address] RAMIPRIL 2019-0 Yes Take by Unive rs ORAL 6-08 mouth. ity of 14:19: [address] SEVELAMER 2019-0 Yes Take by Univ ers HCL ORAL 6-08 mouth. ity of 14:19: [address] METOPROLOL 2019-0 Yes Take by Uni vers TARTRATE 6-08 mouth. ity of ORAL 14:19: [address] terazosin Yes Take by Univ ers HCl (HYTRIN 6-08 mouth. ity of ORAL) 14:19: [address] No known No Univers medications ity [facility] No known No Univers medications ity [facility] No known No Univers medications ity [facility] No known No Univers medications ity [facility] No known No Univers medications ity [facility] No known No Univers medications ity [facility] No known No [facility] Vital Name Observation Time Observation [...] 2019-08-19 16:08:00 121 mm[Hg] Univer sity of [facility] Diastolic blood 2019-08-19 16:08:00 57 mm[Hg] Unive rsity [facility] Heart rate 2019-08-19 16:08:00 76 /min [facility] Body temperature 2019-08-19 16:08:00 36.5 Floridalma [facility] Respiratory rate 2019-08-19 16:08:00 18 /min [facility] Body height 2019-08-19 16:08:00 180.3 cm [facility] Body weight 2019-08-19 16:08:00 86.773 kg [facility] BMI 2019-08-19 16:08:00 26.68 kg/m2 [facility] Heart rate 2021-02-02 12:00:00 63 /min [facility] Body temperature 2021-02-02 12:00:00 37.44 Floridalma [facility] Respiratory rate 2021-02-02 12:00:00 21 /min [facility] Oxygen saturation in 2021-02-02 12:00:00 100 /min [facility] - Arterial blood by Medical Ce nter Pulse oximetry Heart rate 2021-02-02 10:45:00 63 /min [facility] Respiratory rate 2021-02-02 10:45:00 20 /min [facility] Oxygen saturation in 2021-02-02 10:45:00 100 /min [facility] - Arterial blood by Medical Ce nter Pulse oximetry Body temperature 2021-02-02 08:00:00 37.33 Floridalma [facility] Systolic blood 2021-02-02 03:46:00 172 mm[Hg] [facility] Diastolic blood 2021-02-02 03:46:00 89 mm[Hg] [facility] Body weight 2021-01-31 06:00:00 70.217 kg [facility] BMI 2021-01-31 06:00:00 19.88 kg/m2 [facility] Body height 2021-01-10 15:00:00 188 cm [facility] Procedures Procedure Date / Time Performing Clinician Source Performed POCT-GLUCOSE METER 2021-02-[address] [facility] - 07:25:00 [facility] POCT-GLUCOSE METER 2021-02-[address] [facility] - 03:45:00 [facility] PROTHROMBIN TIME/INR 2021-02-[address] [facility] - 03:36:00 [facility] CALCIUM, IONIZED 2021-02-[address] [facility] - 03:36:00 [facility] CBC W/PLT COUNT & AUTO 2021-02-02 [facility] - DIFFERENTIAL 03:36:00 [facility] MAGNESIUM 2021-02-02 [facility] Kasia Mcgrath [facility] - 03:36:00 [facility] PHOSPHORUS 2021-02-02 [facility] - 03:36:00 [facility] BASIC METABOLIC PANEL (7) 2021-02-[address] [place] [address] [facility] - 03:36:00 [facility] PTH, INTACT 2021-02-[address] [facility] - 03:36:00 [facility] XR CHEST 1 VIEW PORTABLE / 2021-02-[address] [facility] - BEDSIDE 00:16:00 [facility] POCT-GLUCOSE METER 2021-02-[address] [facility] - 23:57:00 [facility] POCT-GLUCOSE METER 2021-02-[address] [facility] - 15:26:00 [facility] HEMODIALYSIS INPATIENT 2021-02-[address] [facility] - 14:59:53 [facility] POCT-GLUCOSE METER 2021-02-[address] [facility] - 14:47:[address] [facility] [address] CHEST WITHOUT IV CONTRAST 2021-02-[address] [facility] - 12:29:00 [facility] POCT-GLUCOSE METER 2021-02-[address] [facility] - 11:36:00 [facility] CALCIUM, IONIZED 2021-02-[address] [facility] - 04:21:00 [facility] CBC W/PLT COUNT & AUTO 2021-02-[address] [facility] - DIFFERENTIAL 04:21:00 [facility] MAGNESIUM 2021-02-[address] [facility] - 04:21:00 [facility] PHOSPHORUS 2021-02-[address] [facility] - 04:21:00 [facility] BASIC METABOLIC PANEL (7) 2021-02-[address] [place] [address] [facility] - 04:21:00 [facility] PROTHROMBIN TIME/INR 2021-02-[address] [facility] - 04:21:00 [facility] POCT-GLUCOSE METER 2021-02-[address] [facility] - 01:05:00 [facility] XR CHEST 1 VIEW PORTABLE / 2021-02-[address] [facility] - BEDSIDE 00:21:00 [facility] POCT-GLUCOSE METER 2021-01-[address] [facility] - 21:51:00 [facility] HEMOGLOBIN AND HEMATOCRIT 2021-01-[address] [facility] - 17:12:00 [facility] POCT-GLUCOSE METER 2021-01-[address] [facility] - 11:25:00 [facility] POCT-GLUCOSE METER 2021-01-[address] [facility] - 07:13:00 [facility] PT/APTT 2021-01-[address] [facility] - 04:25:00 [facility] APTT 2021-01-31 Beram, Luz [facility] - 04:25:00 [facility] BLOOD GAS, ARTERIAL 2021-01-31 Beram, Jihad [facility] - 04:25:00 [facility] CALCIUM, IONIZED 2021-01-31 Beram, Jihad [facility] - 04:25:00 [facility] LACTIC ACID, ARTERIAL 2021-01-31 Richeybulmaro Mcgrath, Kasia [facility] - 04:25:00 [facility] CBC W/PLT COUNT & AUTO 2021-01-[address] [facility] - DIFFERENTIAL 04:25:00 [facility] MAGNESIUM 2021-01-31 Richey Mcgrath, Kasia [facility] - 04:25:00 [facility] PHOSPHORUS 2021-01-31 Richey Mcgrath, Kasia [facility] - 04:25:00 [facility] BASIC METABOLIC PANEL (7) 2021-01-[address] [facility] - 04:25:00 [facility] XR CHEST 1 VIEW PORTABLE / 2021-01-[address] [facility] - B[facility] 00:45:00 [facility] PREPARE LEUKO-REDUCED RBC 2021-01-[address] [facility] - 23:54:00 [facility] Center BLOOD GAS, ARTERIAL 2021-01-[address] [facility] - 21:04:00 [facility] BLOOD GAS, ARTERIAL 2021-01-[address] [facility] - 21:03:00 [facility] SODIUM NA-STAT LAB 2021-01-[address] [facility] - 21:03:00 [facility] POTASSIUM-STAT LAB 2021-01-[address] [facility] - 21:03:00 [facility] GLUCOSE-STAT LAB 2021-01-[address] [facility] - 21:03:00 [facility] HGB/HCT (H&H) - STAT LAB 2021-01-[address] [facility] - 21:03:00 [facility] PROTHROMBIN TIME/INR 2021-01-[address] [facility] - 19:20:00 Medical Center MAGNESIUM 2021-01-30 Beram, Luz [facility] - 19:20:00 [facility] CALCIUM, IONIZED 2021-01-30 Beram, Jihad [facility] - 19:20:00 [facility] BASIC METABOLIC PANEL (7) 2021-01-[address] [facility] - 19:20:00 [facility] POCT-GLUCOSE METER 2021-01-[address] [facility] - 18:36:00 [facility] HEMODIALYSIS INPATIENT 2021-01-[address] [facility] - 14:24:20 [facility] Center POCT-GLUCOSE METER 2021-01-[address] [facility] - 12:27:00 [facility] PROTHROMBIN TIME/INR 2021-01-[address] [facility] - 12:18:00 [facility] Center POCT-GLUCOSE METER 2021-01-[address] [facility] - 06:08:00 [facility] Center BLOOD GAS, ARTERIAL 2021-01-30 Beram, Jijoe [facility] - 04:30:00 [facility] BLOOD GAS, ARTERIAL 2021-01-30 Beram, Luz [facility] - 02:05:00 [facility] CALCIUM, IONIZED 2021-01-30 Beram, Luz [facility] - 02:05:00 [facility] LACTIC ACID, ARTERIAL 2021-01-30 Kaiden Mcgrath, Kasia [facility] - 02:05:00 [facility] OXYGEN SATURATION, MEASURED 2021-01-[address] [facility] - 02:05:00 [facility] PT/APTT 2021-01-[address] [facility] - 02:04:00 [facility] APTT 2021-01-[address] [facility] - 02:04:00 [facility] CBC W/PLT COUNT & AUTO 2021-01-30 [facility] Mcgrath, Kasia [facility] - DIFFERENTIAL 02:04:00 [facility] MAGNESIUM 2021-01-30 [facility] Mcgrath, Kasia [facility] - 02:04:00 [facility] PHOSPHORUS 2021-01-30 [facility] Mcgrath, Kasia [facility] - 02:04:00 [facility] BASIC METABOLIC PANEL (7) 2021-01-30 [facility] Alcides, Kasia Moon [facility] - 02:04:00 [facility] XR CHEST 1 VIEW PORTABLE / 2021-01-[facility] 00:36:00 [facility] POCT-GLUCOSE METER 2021-01-29 Valluri Yuk[address] Hailetik [facility] - 23:18:00 [facility] TRANSFUSE LEUKO-REDUCED RED 2021-01-[address] [facility] - BLOOD CELLS 23:08:22 [facility] CBC W/PLT COUNT & AUTO 2021-01-29 [facility] Alcides, Kasia [facility] - DIFFERENTIAL 19:08:00 [facility] TRANSFUSE LEUKO-REDUCED RED 2021-01-29 Dilshad Vera Back [facility] - BLOOD CELLS 18:10:59 [facility] POCT-GLUCOSE METER 2021-01-29 Valluri Yuko Nixon [facility] - 18:04:00 [facility] PROTHROMBIN TIME/INR 2021-01-29 Martin Yungbud Back [facility] - 17:57:[address] [facility] CT BRAIN WITHOUT IV CONTRAST 2021-01-[address] [facility] - 17:28:00 [facility] CTA BRAIN 2021-01-29 [address]in [facility] - 17:28:00 [facility] APTT 2021-01-[address] [facility] - 15:06:00 [facility] PROTHROMBIN TIME/INR 2021-01-[address] [facility] - 15:06:00 [facility] ABORH, MANUAL 2021-01-[address] [facility] - 13:49:00 [facility] POCT-GLUCOSE METER 2021-01-[address] [facility] - 12:15:[address] [facility] CT BRAIN WITHOUT IV CONTRAST 2021-01-[address] [facility] - 09:32:00 [facility] RED BLOOD CELL COUNT 2021-01-[address] [facility] - 09:12:00 [facility] PT/APTT 2021-01-[address] [facility] - 09:12:00 [facility] POCT-GLUCOSE METER 2021-01-[address] [facility] - 07:18:00 [facility] PHOSPHORUS 2021-01-[address] [facility] - 06:11:00 [facility] MAGNESIUM 2021-01-[address] [facility] - 06:11:00 [facility] APTT 2021-01-[address] [facility] - 06:11:00 [facility] BLOOD GAS, ARTERIAL 2021-01-[address] [facility] - 06:11:00 [facility] CALCIUM, IONIZED 2021-01-29 [facility], Luz [facility] - 06:11:00 [facility] LACTIC ACID, ARTERIAL 2021-01-29 Kasia Rubio [facility] - 06:11:00 [facility] OXYGEN SATURATION, MEASURED 2021-01-[address] [facility] - 06:11:00 [facility] CBC W/PLT COUNT & AUTO 2021-01-[address] [facility] - DIFFERENTIAL 06:11:00 [facility] HEPATIC FUNCTION PANEL 2021-01-[address] [facility] - 06:11:00 [facility] DIGOXIN LEVEL 2021-01-[address] [facility] - 06:11:00 [facility] BASIC METABOLIC PANEL (7) 2021-01-[address] [facility] - 06:11:00 [facility] XR CHEST 1 VIEW PORTABLE / 2021-01-[address] [facility] - BEDSIDE 00:52:00 [facility] POCT-GLUCOSE METER 2021-01-[address] [facility] - 00:43:00 [facility] POCT-GLUCOSE METER 2021-01-28 Valluri, Yuko Alicea [facility] - 18:17:00 [facility] BLOOD GAS, ARTERIAL 2021-01-[address] [facility] - 18:13:00 [facility] POTASSIUM 2021-01-[address] [facility] - 18:11:00 [facility] MAGNESIUM 2021-01-[address] [facility] - 18:11:00 [facility] PHOSPHORUS 2021-01-[address] [facility] - 18:11:00 [facility] SODIUM 2021-01-[address] [facility] - 18:11:00 [facility] XR CHEST 1 VIEW PORTABLE / 2021-01-28 [facility]on [facility] 17:33:00 [facility] HEMODIALYSIS INPATIENT 2021-01-28 Vasile Moran [facility] - 12:55:00 [facility] POCT-GLUCOSE METER 2021-01-[address] [facility] - 11:44:00 [facility] BASIC METABOLIC PANEL (7) 2021-01-[address] [facility] - 08:38:00 [facility] MAGNESIUM 2021-01-[address] [facility] - 08:38:00 [facility] PHOSPHORUS 2021-01-[address] [facility] - 08:38:00 [facility] PROTHROMBIN TIME/INR 2021-01-[address] [facility] - 08:36:00 [facility] POCT-GLUCOSE METER 2021-01-[address] [facility] - 06:13:00 [facility] POTASSIUM 2021-01-28 Valluana maria, Yuko Nixon [facility] - 04:58:00 [facility] APTT 2021-01-28 Beram, Luz [facility] - 04:58:00 [facility] BLOOD GAS, ARTERIAL 2021-01-28 Beram, Joyceremy [facility] - 04:58:00 [facility] LACTIC ACID, ARTERIAL 2021-01-28 [facility] Kasia [facility] - 04:58:00 [facility] OXYGEN SATURATION, MEASURED 2021-01-28 [facility], Kasia [facility] - 04:58:00 [facility] CBC W/PLT COUNT & AUTO 2021-01-28 [facility], Kasia [facility] - DIFFERENTIAL 04:58:00 [facility] MAGNESIUM 2021-01-28 [facility], Kasia [facility] - 04:58:00 [facility] PHOSPHORUS 2021-01-28 [facility], Kasia [facility] - 04:58:00 [facility] HEPATIC FUNCTION PANEL 2021-01-[address] [facility] - 04:58:00 [facility] PROTHROMBIN TIME/INR 2021-01-[address] [facility] - 04:58:00 [facility] CALCIUM, IONIZED 2021-01-28 Ber, Jessejoe [facility] - 04:57:00 [facility] XR CHEST 1 VIEW PORTABLE / 2021-01-28 [facility] 03:13:00 [facility] POCT-GLUCOSE METER 2021-01-[address] [facility] - 23:51:00 [facility] POTASSIUM 2021-01-[address] [facility] - 20:43:00 [facility] BLOOD GAS, ARTERIAL 2021-01-27 Uk, Nddorian Bowen [facility] - 20:43:00 [facility] LACTIC ACID, ARTERIAL 2021-01-27 [place], Nduka Bowen [facility] - 20:43:00 [facility] CBC (HEMOGRAM ONLY) 2021-01-27 [...] Rubio [facility] 03:31:00 [facility] OXYGEN SATURATION, MEASURED 2021-01-[address] [facility] - 03:31:00 [facility] CBC W/PLT COUNT & AUTO 2021-01-27 Richey Mcgrath, Kasia [facility] - DIFFERENTIAL 03:31:00 [facility] MAGNESIUM 2021-01-27 Richeybulmaro Pickarda, Kasia [facility] 03:31:00 [facility] PHOSPHORUS 2021-01-27 Kaiden Pickarda, Kasia [facility] - 03:31:00 [facility] HEPATIC FUNCTION PANEL 2021-01-[address] [facility] - 03:31:00 [facility] BLOOD GAS, ARTERIAL 2021-01-27 Beram, Luz [facility] - 03:30:00 [facility] XR CHEST 1 VIEW PORTABLE / 2021-01-27 [facility] Alcides, Kasia [facility] - BEDSIDE 00:45:00 [facility] VA INSERT 2021-01-[address] [facility] - CATH,ART,PERCUT,SHORTTERM 23:51:37 [facility] POCT-GLUCOSE METER 2021-01-26 Valluri, Yuko Lillyk [facility] - 22:02:00 [facility] PHOSPHORUS 2021-01-26 Neagra, Chuckyopher [facility] - 20:28:00 [facility] CALCIUM, IONIZED 2021-01-26 Beram, Jihad [facility] - 20:28:00 [facility] MAGNESIUM 2021-01-26 Beram, Jihad [facility] - 20:28:00 [facility] BASIC METABOLIC PANEL (7) 2021-01-26 Riche[address] McgrathKasia hermosillo [facility] - 20:28:00 [facility] POTASSIUM 2021-01-26 Valluri, Yuko Nixon [facility] - 16:49:00 [facility] POCT-GLUCOSE METER 2021-01-26 Valluri, Sri Nixon [facility] - 16:41:00 [facility] POTASSIUM 2021-01-26 Valluri, Sri Nixon [facility] - 12:13:00 [facility] POCT-GLUCOSE METER 2021-01-26 Valluri, Sri Nixon [facility] - 12:06:00 [facility] PREPARE RBC 2021-01-[address] [facility] - 08:26:00 [facility] PREPARE RBC 2021-01-[address] [facility] - 08:24:00 [facility] MAGNESIUM 2021-01-[address] [facility] [...] Beram, Jihad [facility] - 04:48:00 [facility] BLOOD GAS, ARTERIAL 2021-01-26 Beram, Jihad [facility] - 04:04:00 [facility] APTT 2021-01-26 Beram, Jessehad [facility] - 04:02:00 [facility] CALCIUM, IONIZED 2021-01-26 Beram, Jihad [facility] - 04:02:00 [facility] LACTIC ACID, ARTERIAL 2021-01-26 RicheyKasia Aguirre [facility] - 04:02:00 [facility] OXYGEN SATURATION, MEASURED 2021-01-[address] [facility] - 04:02:00 [facility] CBC W/PLT COUNT & AUTO 2021-01-26 Richey Kasia Mcgrath [facility] - DIFFERENTIAL 04:02:00 [facility] MAGNESIUM 2021-01-26 Richey Mcgrath, Kasia [facility] - 04:02:00 [facility] PHOSPHORUS 2021-01-26 Richey Mcgrath, Kasia [facility] - 04:02:00 [facility] PROTHROMBIN TIME/INR 2021-01-26 Richey Mcgrath, Kasia [facility] - 04:02:00 [facility] DIGOXIN LEVEL 2021-01-[address] [facility] - 04:02:00 [facility] BASIC METABOLIC PANEL (7) 2021-01-[address] [facility] - 04:02:00 [facility] XR CHEST 1 VIEW PORTABLE / 2021-01-[address] [facility] - BEDSIDE 00:20:00 [facility] POCT-GLUCOSE METER 2021-01-25 Valluri, Yuko Alicea [facility] - 21:59:00 [facility] BASIC METABOLIC PANEL (7) 2021-01-[address] [facility] - 20:28:00 [facility] MAGNESIUM 2021-01-25 Beram, Joyceremy [facility] - 20:28:00 [facility] POCT-GLUCOSE METER 2021-01-25 Valluri, Yuko Alicea [facility] - 18:07:00 [facility] XR ABDOMEN / KUB 1 VIEW 2021-01-[address] [facility] - 18:01:00 [facility] POTASSIUM 2021-01-25 Neagra, Rafater [facility] - 16:07:00 [facility] PHOSPHORUS 2021-01-25 Beram, Luz [facility] - 16:07:00 [facility] MAGNESIUM 2021-01-25 Neagra, Christopher [facility] - 16:07:00 [facility] SODIUM 2021-01-25 Neagra, Christopher [facility] - 16:07:00 [facility] BLOOD GAS, ARTERIAL 2021-01-25 Beram, Jihad [facility] - 16:07:00 [facility] CBC W/PLT COUNT & AUTO 2021-01-[address] [facility] - DIFFERENTIAL 13:55:00 [facility] POCT-GLUCOSE METER 2021-01-25 Valluri, Yuko Alicea [facility] - 13:20:00 [facility] PHOSPHORUS 2021-01-25 Beram, Jihad [facility] - 11:42:00 [facility] BASIC METABOLIC PANEL (7) 2021-01-[address] [facility] - 11:42:00 [facility] MAGNESIUM 2021-01-25 Neagra, Christopher [facility] - 11:42:00 [facility] CALCIUM, IONIZED 2021-01-25 Neagra, Christopher [facility] - 11:42:00 [facility] POCT-GLUCOSE METER 2021-01-[address] [facility] [facility] - 08:07:00 [facility] BLOOD GAS, ARTERIAL 2021-01-25 Beram, Jihad [facility] - 03:29:00 [facility] APTT 2021-01-25 Beram, Jihad [facility] - 03:28:00 [facility] CALCIUM, IONIZED 2021-01-25 Beram, Jihad [facility] - 03:28:00 [facility] LACTIC ACID, ARTERIAL 2021-01-25 [facility], Kasia [facility] - 03:28:00 [facility] OXYGEN SATURATION, MEASURED 2021-01-[address] [facility] - 03:28:00 [facility] CBC W/PLT COUNT & AUTO 2021-01-[facility] - DIFFERENTIAL 03:28:00 [facility] BASIC METABOLIC PANEL (7) 2021-01-25 Richey McgrathKasia hermosillo [facility] - 03:28:00 [facility] MAGNESIUM 2021-01-25 Richey Mcgrath, Kasia [facility] - 03:28:00 [facility] PHOSPHORUS 2021-01-25 Richey Mcgrath, Kasia [facility] - 03:28:00 [facility] PROTHROMBIN TIME/INR 2021-01-[facility] - 03:28:00 [facility] XR CHEST 1 VIEW PORTABLE / 2021-01-[address] [facility] - BEDSIDE 02:31:00 [facility] POCT-GLUCOSE METER 2021-01-[address] [facility] - 00:13:00 [facility] PREPARE LEUKO-REDUCED 2021-01-[address] [facility] - PLATELETS 23:55:00 [facility] PREPARE PLASMA 2021-01-[address] [facility] - 23:55:00 [facility] PREPARE PLATELETS 2021-01-[address] [facility] - 23:55:00 [facility] PREPARE PLASMA 2021-01-[address] [facility] - 23:54:00 [facility] PREPARE RBC 2021-01-[address] [facility] - 23:54:00 [facility] PREPARE LEUKO-REDUCED 2021-01-[address] [facility] - PLATELETS 23:54:00 [facility] SODIUM NA-STAT LAB 2021-01-[address] [facility] - 21:42:00 [facility] POTASSIUM-STAT LAB 2021-01-[address] [facility] - 21:42:00 [facility] GLUCOSE-STAT LAB 2021-01-[address] [facility] - 21:42:00 [facility] HGB/HCT (H&H) - STAT LAB 2021-01-[address] [facility] - 21:42:00 [facility] BLOOD GAS, ARTERIAL 2021-01-[address] [facility] - 21:41:00 [facility] PHOSPHORUS 2021-01-24 Beram, Luz [facility] - 18:16:00 [facility] BASIC METABOLIC PANEL (7) 2021-01-[address] [facility] - 18:16:00 [facility] MAGNESIUM 2021-01-24 Beram, Luz [facility] - 18:16:00 [facility] CBC W/PLT COUNT & AUTO 2021-01-[address] [facility] - DIFFERENTIAL 12:21:00 [facility] PHOSPHORUS 2021-01-24 Beram, Jihad [facility] - 10:25:00 [facility] POTASSIUM 2021-01-24 Beram, Jihad [facility] - 10:25:00 [facility] MAGNESIUM 2021-01-24 Beram, Jihad [facility] - 10:25:00 [facility] BLOOD GAS, ARTERIAL 2021-01-24 Beram, Jihad [facility] - 10:25:00 [facility] POCT-GLUCOSE METER 2021-01-[address] [facility] [facility] - 08:56:00 [facility] APTT 2021-01-24 Beram, Jessesabinoremy [facility] - 03:18:00 [facility] BLOOD GAS, ARTERIAL 2021-01-24 Beram, Jihad [facility] - 03:18:00 [facility] CALCIUM, IONIZED 2021-01-24 Beram, Jihad [facility] - 03:18:00 [facility] LACTIC ACID, ARTERIAL 2021-01-24 [facility] - 03:18:00 [facility] OXYGEN SATURATION, MEASURED 2021-01-24 [facility], Kasia [facility] - 03:18:00 [facility] BASIC METABOLIC PANEL (7) 2021-01-[address] [facility] [facility] - 03:18:00 [facility] MAGNESIUM 2021-01-24 [facility], Kasia [facility] - 03:18:00 [facility] PHOSPHORUS 2021-01-24 [facility], Kasia [facility] - 03:18:00 [facility] PROTHROMBIN TIME/INR 2021-01-24 [facility], Kasia [facility] - 03:18:00 [facility] CBC W/PLT COUNT & AUTO 2021-01-[address] [facility] - DIFFERENTIAL 03:18:00 [facility] HEPATIC FUNCTION PANEL 2021-01-[address] [facility] - 03:18:00 [facility] XR CHEST 1 VIEW PORTABLE / 2021-01-24 [facility] - BEDSIDE 01:39:00 [facility] CBC W/PLT COUNT & AUTO 2021-01-[address] [facility] - DIFFERENTIAL 00:31:00 [facility] BLOOD GAS, ARTERIAL 2021-01-24 Meigs, Uselyn [facility] - 00:31:00 [facility] LACTIC ACID, ARTERIAL 2021-01-24 Meigs, Usejosiah [facility] - 00:31:00 [facility] PREPARE LEUKO-REDUCED RBC 2021-01-23 Elin Vasquez [facility] - 23:54:00 [facility] PREPARE RBC 2021-01-[address] [facility] - 23:54:00 [facility] TRANSFUSE LEUKO-REDUCED RED 2021-01-23 Meigs, Uselyn [facility] - BLOOD CELLS 23:42:34 [facility] POCT-GLUCOSE METER 2021-01-[address] [facility] - 23:10:00 [facility] TRANSFUSE PLASMA 2021-01-23 Jeanette, Zaira [facility] - 21:55:06 [facility] BASIC METABOLIC PANEL (7) 2021-01-[address] [facility] - 21:26:00 [facility] PROTHROMBIN TIME/INR 2021-01-[address] [facility] - 21:26:00 [facility] APTT 2021-01-23 Meigs, Uselyn [facility] - 21:26:00 [facility] FIBRINOGEN 2021-01-23 Meigs, Uselyn [facility] - 21:26:00 [facility] MAGNESIUM 2021-01-23 Meigs, Uselyn [facility] - 21:26:00 [facility] PHOSPHORUS 2021-01-23 Meigs, Uselyn [facility] - 21:26:00 [facility] CALCIUM, IONIZED 2021-01-23 Meigs, Uselyn [facility] - 21:26:00 [facility] CBC W/PLT COUNT & AUTO 2021-01-23 Meigs, Uselyn [facility] - DIFFERENTIAL 21:26:00 [facility] BLOOD GAS, ARTERIAL 2021-01-23 Meigs, Uselyn [facility] - 21:26:00 [facility] TRANSFUSE LEUKO-REDUCED 2021-01-23 Jeanette, Zaira [facility] - PLATELETS 20:46:34 [facility] TRANSFUSE LEUKO-REDUCED RED 2021-01-23 Richey Kasia Mcgrath [facility] - BLOOD CELLS 19:36:37 [facility] POCT-GLUCOSE METER 2021-01-[address] [facility] - 18:47:00 [facility] CBC W/PLT COUNT & AUTO 2021-01-[address]Kasia cain [facility] - DIFFERENTIAL 17:47:00 [facility] OXYGEN SATURATION, MEASURED 2021-01-[address] [facility] - 17:43:00 [facility] XR CHEST 1 VIEW PORTABLE / 2021-01-23 Richeybulmaro PickardKasia cain [facility] - BEDSIDE 15:54:00 [facility] BLOOD GAS, ARTERIAL 2021-01-23 Richeybulmaro Mcgrath, Kasia [facility] - 15:50:00 [facility] CBC W/PLT COUNT & AUTO 2021-01-23 [facility] McgrathKasia [facility] - DIFFERENTIAL 15:48:00 [facility] COMPREHENSIVE METABOLIC 2021-01-[address] [facility] - PANEL 15:48:00 [facility] MAGNESIUM 2021-01-[address] [facility] - 15:48:00 [facility] PHOSPHORUS 2021-01-[address] [facility] - 15:48:00 [facility] LACTIC ACID, ARTERIAL 2021-01-23 [facility] McgrathKasia [facility] - 15:48:00 [facility] BLOOD GAS, ARTERIAL 2021-01-[address] [facility] - 15:48:00 [facility] PROTHROMBIN TIME/INR 2021-01-[address] [facility] - 15:48:00 [facility] APTT 2021-01-[address] [facility] - 15:48:00 [facility] FIBRINOGEN 2021-01-[address] [facility] - 15:48:00 [facility] SODIUM NA-STAT LAB 2021-01-[address] [facility] - 15:48:00 [facility] POTASSIUM-STAT LAB 2021-01-23 [facility] McgrathKasia [facility] - 15:48:00 [facility] GLUCOSE-STAT LAB 2021-01-[address] [facility] - 15:48:00 [facility] HGB/HCT (H&H) - STAT LAB 2021-01-[address] [facility] - 15:48:00 [facility] TRANSFUSE PLASMA 2021-01-23 Royalnanci, Alyce [facility] - 14:22:50 [facility] TRANSFUSE LEUKO-REDUCED 2021-01-[address] [facility] - PLATELETS 14:17:35 [facility] TRANSFUSE PLASMA 2021-01-23 Royalnanci, Alyce [facility] - 14:16:35 [facility] BLOOD GAS, ARTERIAL 2021-01-23 Prasanna, Alyce [facility] - 13:33:39 [facility] CALCIUM, IONIZED 2021-01-23 Royalnanci, Alyce [facility] - 13:33:39 [facility] APTT 2021-01-23 Prasanna, Alyce [facility] - 13:33:39 [facility] PROTHROMBIN TIME/INR 2021-01-[address] [facility] - 13:33:39 [facility] FIBRINOGEN 2021-01-23 Royalnanci, Alyce [facility] - 13:33:39 [facility] PLATELET COUNT 2021-01-23 Prasanna, Alyce [facility] - 13:33:39 [facility] SODIUM NA-STAT LAB 2021-01-[address] [facility] - 13:33:39 [facility] POTASSIUM-STAT LAB 2021-01-23 Royalnanci, Alyce [facility] - 13:33:39 [facility] GLUCOSE-STAT LAB 2021-01-23 Royalnanci, Alyce [facility] - 13:33:39 [facility] HGB/HCT (H&H) - STAT LAB 2021-01-23 [facility]ims [facility] - 13:33:39 [facility] TRANSFUSE PLASMA 2021-01-23 [facility] - 13:18:07 [facility] TRANSFUSE LEUKO-REDUCED 2021-01-[address] [facility] - PLATELETS 13:14:42 [facility] EXPLORATION,MEDIASTINAL 2021-01-[address] [facility] - 12:39:00 [facility] TRANSFUSE LEUKO-REDUCED 2021-01-[address] [facility] - PLATELETS 11:04:16 [facility] POCT-GLUCOSE METER 2021-01-[address] [facility] - 09:50:00 [facility] TRANSFUSE PLASMA 2021-01-[address] [facility] - 09:36:12 [facility] PHOSPHORUS 2021-01-23 Beram, Jessesabinoremy [facility] - 09:32:00 [facility] CBC (HEMOGRAM ONLY) 2021-01-23 Beram, Luz [facility] - 09:32:00 [facility] MAGNESIUM 2021-01-23 Beram, Luz [facility] - 09:32:00 [facility] LACTIC ACID, ARTERIAL 2021-01-[address] [facility] - 04:04:00 [facility] XR CHEST 1 VIEW PORTABLE / 2021-01-[address] Leon[address] [facility] - BEDSIDE 03:53:00 [facility] BLOOD GAS, ARTERIAL 2021-01-23 Zhaoam, Luz [facility] - 03:49:00 [facility] OXYGEN SATURATION, MEASURED 2021-01-[address] [facility] - 03:49:00 [facility] APTT 2021-01-23 Bob, Luz [facility] - 03:48:00 [facility] CBC W/PLT COUNT & AUTO 2021-01-[address] [facility] - DIFFERENTIAL 03:48:00 [facility] PROTHROMBIN TIME/INR 2021-01-[address] [facility] - 03:48:00 [facility] MAGNESIUM 2021-01-[address] [facility] - 03:48:00 [facility] PHOSPHORUS 2021-01-[address] [facility] - 03:48:00 [facility] CALCIUM, IONIZED 2021-01-23 Zhaoam, Luz [facility] - 03:48:00 [facility] BASIC METABOLIC PANEL (7) 2021-01-23 Jes [facility] 03:48:00 [facility] (CELLAVISION MANUAL DIFF) 2021-01-23 Jes Ramos [facility] - 03:48:00 [facility] TRANSFUSE LEUKO-REDUCED RED 2021-01-[address] [facility] - BLOOD CELLS 01:18:21 [facility] LACTIC ACID, ARTERIAL 2021-01-[address] [facility] [facility] - 00:14:00 [facility] MAGNESIUM 2021-01-23 Beram, Jessesabinoremy [facility] - 00:14:00 [facility] CALCIUM, IONIZED 2021-01-23 Beram, Jihad [facility] - 00:14:00 [facility] BLOOD GAS, ARTERIAL 2021-01-23 Beram, Jisabinod [facility] - 00:14:00 [facility] BASIC METABOLIC PANEL (7) 2021-01-23 Jes Ramos [facility] 00:14:00 [facility] TRANSFUSE LEUKO-REDUCED RED 2021-01-[address] [facility] - BLOOD CELLS 21:28:48 [facility] BLOOD GAS, ARTERIAL 2021-01-22 Zhao, Luz [facility] - 20:16:00 [facility] CBC (HEMOGRAM ONLY) 2021-01-[address] [facility] - 20:15:00 [facility] LACTIC ACID, ARTERIAL 2021-01-22 El[facility] Vasquez [facility] - 20:14:00 [facility] OXYGEN SATURATION, MEASURED 2021-01-22 Elin Vasquez [facility] - 20:14:00 [facility] SODIUM NA-STAT LAB 2021-01-[address] [facility] - 20:14:00 [facility] POTASSIUM-STAT LAB 2021-01-[address] [facility] - 20:14:00 [facility] GLUCOSE-STAT LAB 2021-01-[address] [facility] - 20:14:00 [facility] HGB/HCT (H&H) - STAT LAB 2021-01-22 [facility] - 20:14:00 [facility] PHOSPHORUS 2021-01-[address] [facility] - 20:14:00 [facility] PROTHROMBIN TIME/INR 2021-01-22 Ramos, Jes [facility] - 20:14:00 [facility] APTT 2021-01-[address] [facility] - 20:14:00 [facility] FIBRINOGEN 2021-01-22 Ramos, Jes [facility] - 20:14:00 [facility] TRANSFUSE LEUKO-REDUCED RED 2021-01-22 [facility] - BLOOD CELLS 19:33:22 [facility] [address] CHEST WITH IV CONTRAST 2021-01-22 [facility] - 19:16:[address] [facility] [address] ABDOMEN/PELVIS WITH IV 2021-01-22 Elin Vasquez [facility] - CONTRAST 19:16:00 [facility] BLOOD GAS, ARTERIAL 2021-01-22 Elin Vasquez [facility] - 18:20:00 [facility] XR CHEST 1 VIEW PORTABLE / 2021-01-22 Elin Vasquez [facility] - BEDSIDE 17:57:00 [facility] POCT-GLUCOSE METER 2021-01-[address] [facility] - 16:31:00 [facility] PREPARE PLASMA 2021-01-22 Elin Vasquez [facility] - 14:56:00 [facility] BLOOD GAS, ARTERIAL 2021-01-22 Elin Vasquez [facility] - 14:41:00 [facility] POCT-GLUCOSE METER 2021-01-22 Ca [facility] - 14:21:00 [facility] OXYGEN SATURATION, MEASURED 2021-01-22 Elin Vasquez [facility] - 13:58:00 [facility] POCT-GLUCOSE METER 2021-01-[address] [facility] - 13:57:00 [facility] SODIUM NA-STAT LAB 2021-01-22 [facility] - 13:56:00 [facility] POTASSIUM-STAT LAB 2021-01-22 Eiln Vasquez [facility] - 13:56:00 [facility] GLUCOSE-STAT LAB 2021-01-22 Elin Vasquez [facility] - 13:56:00 [facility] HGB/HCT (H&H) - STAT LAB 2021-01-[address] [facility] - 13:56:00 [facility] CALCIUM, IONIZED 2021-01-22 Pedro, Elin [facility] - 13:56:00 [facility] CBC W/PLT COUNT & AUTO 2021-01-22 Elin Vasquez [facility] - DIFFERENTIAL 13:56:00 [facility] BLOOD GAS, ARTERIAL 2021-01-22 Pedro, [facility] - 13:56:00 [facility] (CELLAVISION MANUAL DIFF) 2021-01-22 [facility] - 13:56:00 [facility] LACTIC ACID, ARTERIAL 2021-01-[address] [facility] - 13:55:00 [facility] BASIC METABOLIC PANEL (7) 2021-01-22 [facility] - 13:55:00 [facility] MAGNESIUM 2021-01-[address] [facility] - 13:55:00 [facility] PHOSPHORUS 2021-01-[address] [facility] - 13:55:00 [facility] PROTHROMBIN TIME/INR 2021-01-[address] [facility] - 13:54:00 [facility] APTT 2021-01-22 Jaswinder Vasquezloni [facility] - 13:54:00 [facility] FIBRINOGEN 2021-01-22 Jaswinder Vasquezloni [facility] - 13:54:00 [facility] POCT-GLUCOSE METER 2021-01-22 Ca Nolan [facility] - 13:23:00 [facility] BLOOD GAS, ARTERIAL 2021-01-[address] [facility] - 12:04:00 [facility] POCT-GLUCOSE METER 2021-01-22 Ca Nolan [facility] - 11:45:00 [facility] TRANSFUSE LEUKO-REDUCED RED 2021-01-22 Elin Vasquez [facility] - BLOOD CELLS 11:30:51 [facility] POCT-GLUCOSE METER 2021-01-22 Ca Nolan [facility] - 11:19:00 [facility] POCT-GLUCOSE METER 2021-01-22 [facility], Ca DominguezJennifer [facility] - 11:06:00 [facility] POCT-GLUCOSE METER 2021-01-22 [facility], Ca Irizarry [facility] - 10:55:00 [facility] POCT-GLUCOSE METER 2021-01-22 [facility], Ca AngelicaJennifer [facility] - 10:48:00 [facility] 2D ECHO W/ DOPPLER 2021-01-22 Jes Ramos [facility] - (CW/PW/COLOR) 10:39:48 [facility] LACTIC ACID, ARTERIAL 2021-01-22 Elin Vasquez [facility] - 10:36:00 [facility] OXYGEN SATURATION, MEASURED 2021-01-22 Elin Vasquez [facility] - 10:36:00 [facility] SODIUM NA-STAT LAB 2021-01-22 Elin Vasquez [facility] - 10:36:00 [facility] POTASSIUM-STAT LAB 2021-01-22 Elin Vasquez [facility] - 10:36:00 [facility] GLUCOSE-STAT LAB 2021-01-[address] [facility] - 10:36:00 [facility] HGB/HCT (H&H) - STAT LAB 2021-01-22 Elin Vasquez [facility] - 10:36:00 [facility] TRANSFUSE LEUKO-REDUCED RED 2021-01-22 Jes Ramos [facility] - BLOOD CELLS 09:58:57 [facility] CONTINUOUS VENOVENOUS 2021-01-22 [facility], Luz HOMA [place] es - HEMODIALYSIS 09:18:10 [facility] APTT 2021-01-22 [facility], Luz [facility] - 09:13:00 [facility] XR CHEST 1 VIEW PORTABLE / 2021-01-22 Elin Vasquez [facility] - BEDSIDE 08:57:00 [facility] LACTIC ACID, ARTERIAL 2021-01-22 Elin Vasquez [facility] - 08:09:00 [facility] OXYGEN SATURATION, MEASURED 2021-01-22 Elin Vasquez [facility] - 08:09:00 [facility] SODIUM NA-STAT LAB 2021-01-[address] [facility] - 08:09:00 [facility] POTASSIUM-STAT LAB 2021-01-22 Pedro, Elin [facility] - 08:09:00 [facility] GLUCOSE-STAT LAB 2021-01-22 Pedro, Elin [facility] - 08:09:00 [facility] HGB/HCT (H&H) - STAT LAB 2021-01-[address] [facility] - 08:09:00 [facility] BLOOD GAS, ARTERIAL 2021-01-22 Pedro, [facility] - 08:09:00 [facility] APTT 2021-01-[address] [facility] - 07:42:00 [facility] XR CHEST 1 VIEW PORTABLE / 2021-01-[address] [facility] - BEDSIDE 07:08:00 [facility] HEMOGLOBIN AND HEMATOCRIT 2021-01-22 Jes Ramos [facility] - 06:37:00 [facility] BASIC METABOLIC PANEL (7) 2021-01-22 Jes Ramos [facility] - 06:35:00 [facility] CALCIUM, IONIZED 2021-01-[address] [facility] - 06:35:00 [facility] PROTHROMBIN TIME/INR 2021-01-[address] [facility] - 06:35:00 [facility] APTT 2021-01-[address] [facility] - 06:35:00 [facility] FIBRINOGEN 2021-01-[address] [facility] - 06:35:00 [facility] B-TYPE NATRIURETIC FACTOR 2021-01-22 Jes Ramos [facility] - (BNP) 06:35:00 [facility] HEPATIC FUNCTION PANEL 2021-01-[address] [facility] - 06:35:00 [facility] MAGNESIUM 2021-01-[address] [facility] - 06:35:00 [facility] PHOSPHORUS 2021-01-[address] [facility] - 06:35:00 [facility] LACTIC ACID, ARTERIAL 2021-01-22 Jes Ramos [...] [facility] - DIFFERENTIAL 02:28:00 [facility] PROTHROMBIN TIME/INR 2021-01-[address] [facility] - 02:28:00 [facility] MAGNESIUM 2021-01-[address] [facility] - 02:28:00 [facility] PHOSPHORUS 2021-01-[address] [facility] - 02:28:00 [facility] CALCIUM, IONIZED 2021-01-22 Bob, Luz [facility] - 02:28:00 [facility] LACTIC ACID, ARTERIAL 2021-01-[address] [facility] - 02:28:00 [facility] BASIC METABOLIC PANEL (7) 2021-01-22 Nanette Ramosazael [facility] 02:28[facility]00 [facility] OXYGEN SATURATION, MEASURED 2021-01-[address] [facility] - 02:28:00 [facility] XR CHEST 1 VIEW PORTABLE / 2021-01-22 Leonidas Ocampo [facility] 01:25:00 [facility] APTT 2021-01-[address] [facility] - 01:11:00 [facility] PREPARE LEUKO-REDUCED RBC 2021-01-21 [facility] 23:54:00 [facility] HEMOGLOBIN AND HEMATOCRIT 2021-01-21 Jes Ramos [facility] - 22:41:00 [facility] APTT 2021-01-[address] [facility] - 22:41:00 [facility] ECG 12-LEAD 2021-01-21 Unknown, Hl7 Doctor [facility] - 22:11:18 [facility] POCT-GLUCOSE METER 2021-01-21 An Ca T[address] [facility] - 21:40:00 [facility] BASIC METABOLIC PANEL (7) 2021-01-21 Omi, Omar [facility] - 21:32:00 [facility] PHOSPHORUS 2021-01-21 Omi, Omar [facility] - 21:32:00 [facility] MAGNESIUM 2021-01-21 Omi, Omar [facility] - 21:32:00 [facility] BLOOD GAS, ARTERIAL 2021-01-[address] [facility] - 18:59:00 [facility] POCT-GLUCOSE METER 2021-01-[address] [facility] - 18:23:00 [facility] PT/APTT 2021-01-[address] [facility] - 17:17:00 [facility] POCT-GLUCOSE METER 2021-01-[address] [facility] - 12:07:00 [facility] BLOOD GAS, ARTERIAL 2021-01-[address] [facility] - 11:50:00 [facility] PT/APTT 2021-01-[address] [facility] - 11:49:00 [facility] MAGNESIUM 2021-01-[address] [facility] - 09:06:00 [facility] PHOSPHORUS 2021-01-[address] [facility] - 09:06:00 [facility] POTASSIUM 2021-01-[address] [facility] - 09:06:00 [facility] POCT-GLUCOSE METER 2021-01-21 Ca Nolan [address] [facility] - 08:39:00 [facility] PH, ARTERIAL 2021-01-[address] [facility] - 08:18:00 [facility] XR CHEST 1 VIEW PORTABLE / 2021-01-21 Leonidas Ocampo [facility] 03:14:00 [facility] BLOOD GAS, ARTERIAL 2021-01-[address] [facility] - 03:10:00 [facility] CALCIUM, IONIZED 2021-01-[address] [facility] - 03:10:00 [facility] CBC W/PLT COUNT & AUTO 2021-01-[address] [facility] - DIFFERENTIAL 03:09:00 [facility] MAGNESIUM 2021-01-[address] [facility] - 03:09:00 [facility] APTT 2021-01-[address] [facility] - 03:09:00 [facility] HEPATIC FUNCTION PANEL 2021-01-[address] [facility] - 03:09:00 [facility] PROTHROMBIN TIME/INR 2021-01-[address] [facility] - 03:09:00 [facility] BASIC METABOLIC PANEL (7) 2021-01-[address] [facility] - 03:09:00 [facility] PREPARE LEUKO-REDUCED RBC 2021-01-[address] [facility] - 23:54:00 [facility] POCT-GLUCOSE METER 2021-01-[address] [facility] - 23:46:00 [facility] POTASSIUM 2021-01-[address] [facility] - 21:38:00 [facility] MAGNESIUM 2021-01-[address] [facility] - 21:38:00 [facility] PH, ARTERIAL 2021-01-20 Jarod, Jingyin [facility] - 21:38:00 [facility] PHOSPHORUS 2021-01-[address] [facility] - 21:38:00 [facility] POTASSIUM 2021-01-[address] [facility] - 18:19:00 [facility] POCT-GLUCOSE METER 2021-01-20 Ca Nolan [address] [facility] - 18:08:00 [facility] IR TUNNELED CATHETER 2021-01-[address] [facility] - INSERTION 17:08:00 [facility] TRANSFUSE LEUKO-REDUCED RED 2021-01-[address] [facility] - BLOOD CELLS 13:47:22 [facility] POTASSIUM 2021-01-[address] [...] Jarod, Sadi [facility] - 09:07:00 [facility] BLOOD GAS, ARTERIAL 2021-01-20 Bob, Luz [facility] - 03:49:00 [facility] CBC W/PLT COUNT & AUTO 2021-01-[address] [facility] - DIFFERENTIAL 03:48:00 [facility] MAGNESIUM 2021-01-[address] [facility] - 03:48:00 [facility] CALCIUM, IONIZED 2021-01-[address] [facility] - 03:48:00 [facility] PROTHROMBIN TIME/INR 2021-01-[address] [facility] - 03:48:00 [facility] BASIC METABOLIC PANEL (7) 2021-01-20 Jarod, Sadi [facility] - 03:48:00 [facility] HEPATIC FUNCTION PANEL 2021-01-[address] [facility] - 03:48:00 [facility] APTT 2021-01-20 Zhaotoro, Luz [facility] - 02:04:00 [facility] XR CHEST 1 VIEW PORTABLE / 2021-01-20 Leonidas Ocampo [facility] - [facility] 01:18:00 [facility] POTASSIUM 2021-01-[address] [facility] - 00:38:00 [facility] POCT-GLUCOSE METER 2021-01-[address] [facility] - 00:20:00 [facility] HEMOGLOBIN AND HEMATOCRIT 2021-01-20 Jes Ramos [facility] - 00:19:00 [facility] TRANSFUSE LEUKO-REDUCED RED 2021-01-[address] [facility] - BLOOD CELLS 22:29:21 [facility] PH, ARTERIAL 2021-01-[address] [...] Candice Edwards [facility] - 17:12:00 [facility] CBC W/PLT COUNT & AUTO 2021-01-[address] [facility] [facility] - DIFFERENTIAL 17:12:00 [facility] POCT-GLUCOSE METER 2021-01-[address] [facility] - 11:39:00 [facility] POTASSIUM 2021-01-[address] [facility] - 11:24:00 [facility] PT/APTT 2021-01-[address] [facility] - 11:24:00 [facility] PHOSPHORUS 2021-01-[address] [facility] - 08:49:00 [facility] BLOOD GAS, ARTERIAL 2021-01-[address] [facility] - 08:49:00 [facility] POCT-GLUCOSE METER 2021-01-[address] [facility] - 06:23:00 [facility] HEMOGLOBIN AND HEMATOCRIT 2021-01-[address] [facility] - 05:41:00 [facility] CBC W/PLT COUNT & AUTO 2021-01-[address] [facility] - DIFFERENTIAL 05:41:00 [facility] BLOOD GAS, ARTERIAL 2021-01-19 Beram, Jihad [facility] - 03:47:00 [facility] CBC W/PLT COUNT & AUTO 2021-01-[address] [facility] - DIFFERENTIAL 03:46:00 [facility] MAGNESIUM 2021-01-[address] [facility] - 03:46:00 [facility] APTT 2021-01-[address] [facility] - 03:46:00 [facility] COMPREHENSIVE METABOLIC 2021-01-[address] [facility] - PANEL 03:46:00 [facility] CALCIUM, IONIZED 2021-01-[address] [facility] - 03:46:00 [facility] HEPATIC FUNCTION PANEL 2021-01-[address] [facility] - 03:46:00 [facility] PROTHROMBIN TIME/INR 2021-01-[address] [facility] - 03:46:00 [facility] (CELLAVISION MANUAL DIFF) 2021-01-[address] [facility] - 03:46:00 [facility] XR CHEST 1 VIEW PORTABLE / 2021-01-19 Leon[facility]o [facility] 01:50:00 [facility] XR ABDOMEN / KUB 1 VIEW 2021-01-[address] [facility] - 01:50:00 [facility] POCT-GLUCOSE METER 2021-01-[address] [facility] - 01:38:00 [facility] POCT-GLUCOSE METER 2021-01-19 Ca [facility] - 00:22:00 [facility] PREPARE PLASMA 2021-01-[address] [facility] - 23:55:00 [facility] PREPARE LEUKO-REDUCED RBC 2021-01-18 Elin [facility]quez [facility] - 23:55:00 [facility] POTASSIUM 2021-01-[address] [facility] - 20:05:00 [facility] MAGNESIUM 2021-01-[address] [facility] - 20:05:00 [facility] PH, ARTERIAL 2021-01-[address] [facility] - 20:05:00 [facility] PHOSPHORUS 2021-01-[address] [facility] - 20:05:00 [facility] HEMOGLOBIN AND HEMATOCRIT 2021-01-18 Jes [facility] - 20:05:00 [facility] POCT-GLUCOSE METER 2021-01-18 Kendrickkluis Ca T. [facility] - 17:48:00 [facility] POTASSIUM 2021-01-[address] [facility] - 15:40:00 [facility] POTASSIUM 2021-01-[address] [facility] - 12:28:00 [facility] POCT-GLUCOSE METER 2021-01-18 [place], Ca T. [facility] - 12:28:00 [facility] XR CHEST 1 VIEW PORTABLE / 2021-01-18 Estef[address]willi[address] [facility] - [facility] 08:24:00 [facility] POTASSIUM 2021-01-[address] [facility] - 08:09:00 [facility] MAGNESIUM 2021-01-[address] [facility] - 08:09:00 [facility] PHOSPHORUS 2021-01-[address] [facility] - 08:09:00 [facility] HEMOGLOBIN AND HEMATOCRIT 2021-01-18 Jes Ramos [facility] - 04:31:00 [facility] BLOOD GAS, ARTERIAL 2021-01-[address] [facility] - 03:20:00 [facility] SARS-COV2/RT-PCR (HS & REF 2021-01-[address] [facility] - LABS) 03:16:00 [facility] CBC W/PLT COUNT & AUTO 2021-01-[address] [facility] - DIFFERENTIAL 03:13:00 [facility] MAGNESIUM 2021-01-[address] [facility] - 03:13:00 [facility] APTT 2021-01-[address] [facility] - 03:13:00 [facility] COMPREHENSIVE METABOLIC 2021-01-[address] [facility] - PANEL 03:13:00 [facility] PROTHROMBIN TIME/INR 2021-01-[address] [facility] - 03:13:00 [facility] LACTIC ACID, ARTERIAL 2021-01-[address] [facility] - 03:13:00 [facility] POCT-GLUCOSE METER 2021-01-[address] [facility] - 01:05:00 [facility] XR CHEST 1 VIEW PORTABLE / 2021-01-18 Leonidas Ocamop [facility] - [facility] 00:21:00 [facility] PREPARE LEUKO-REDUCED RBC 2021-01-17 Jes Ramos [facility] - 23:55:00 [facility] HEMOGLOBIN AND HEMATOCRIT 2021-01-17 Jes Ramos [facility] - 19:55:00 [facility] POTASSIUM 2021-01-[address] [facility] - 19:49:00 [facility] MAGNESIUM 2021-01-[address] [facility] - 19:49:00 [facility] PH, ARTERIAL 2021-01-17 Jarod, Sadi [facility] - 19:49:00 [facility] PHOSPHORUS 2021-01-[address] [facility] - 19:49:00 [facility] TRANSFUSE LEUKO-REDUCED RED 2021-01-[address] [facility] - BLOOD CELLS 19:14:33 [facility] POCT-GLUCOSE METER 2021-01-[address] [facility] - 18:19:00 [facility] PROTHROMBIN TIME/INR 2021-01-[address] [facility] - 14:41:00 [facility] APTT 2021-01-[address] [facility] - 14:41:00 [facility] FIBRINOGEN 2021-01-[address] [facility] - 14:41:00 [facility] PLATELET COUNT 2021-01-[address] [facility] - 14:41:00 [facility] HEMOGLOBIN AND HEMATOCRIT 2021-01-[address] [facility] - 14:06:00 [facility] POCT-GLUCOSE METER 2021-01-[address] [facility] - 12:31:00 [facility] XR ABDOMEN / KUB 1 VIEW 2021-01-[address] [facility] - 12:11:00 [facility] POTASSIUM 2021-01-17 Jarod, Sadi [facility] - 11:43:00 [facility] TRANSFUSE PLASMA 2021-01-[address] [facility] - 11:34:18 [facility] POTASSIUM 2021-01-17 Jarod, Sadi [facility] - 07:59:00 [facility] MAGNESIUM 2021-01-17 Jarod, Sadi [facility] - 07:59:00 [facility] PH, ARTERIAL 2021-01-17 Jarod, Edelin [facility] - 07:59:00 [facility] PHOSPHORUS 2021-01-17 [facility] - 07:59:00 [facility] HEMOGLOBIN AND HEMATOCRIT 2021-01-[address] [facility] - 07:59:00 [facility] LACTIC ACID, ARTERIAL 2021-01-[address] [facility] - 04:08:00 [facility] CBC W/PLT COUNT & AUTO 2021-01-[address] [facility] - DIFFERENTIAL 04:08:00 [facility] MAGNESIUM 2021-01-[address] [facility] - 04:08:00 [facility] APTT 2021-01-[address] [facility] - 04:08:00 [facility] COMPREHENSIVE METABOLIC 2021-01-[address] [facility] - PANEL 04:08:00 [facility] HEPATIC FUNCTION PANEL 2021-01-[address] [facility] - 04:08:00 [facility] BLOOD GAS, ARTERIAL 2021-01-[address] [facility] - 04:08:00 [facility] PROTHROMBIN TIME/INR 2021-01-[address] [facility] - 04:08:00 [facility] TYPE AND SCREEN, AUTOMATED 2021-01-[address] [facility] - 04:08:00 [facility] (CELLAVISION MANUAL DIFF) 2021-01-[address] [facility] - 04:08:00 [facility] TRANSFUSE LEUKO-REDUCED RED 2021-01-[address] [facility] - BLOOD CELLS 03:55:34 [facility] POCT-GLUCOSE METER 2021-01-[address] [facility] - 03:32:00 [facility] XR CHEST 1 VIEW PORTABLE / 2021-01-17 Leonidas Ocampo [facility] 00:37:00 [facility] POTASSIUM 2021-01-16 Jarod, Jinarias [facility] - 23:11:00 [facility] PROTHROMBIN TIME/INR 2021-01-16 Ramos, Jes [facility] - 23:11:00 [facility] APTT 2021-01-16 Ramos, Jes [facility] - 23:11:00 [facility] FIBRINOGEN 2021-01-16 Ramos, Jes [facility] - 23:11:00 [facility] POCT-GLUCOSE METER 2021-01-16 Mtkway, Ca Irizarry [facility] - 22:09:00 [facility] TRANSFUSE LEUKO-REDUCED RED 2021-01-[address] [facility] - BLOOD CELLS 20:31:58 [facility] LACTIC ACID, ARTERIAL 2021-01-16 [...] Ara Cox [facility] - 18:23:00 [facility] BLOOD CULTURE 2021-01-[address] [facility] - 18:11:00 [facility] TRANSFUSE LEUKO-REDUCED RED 2021-01-[address] [facility] - BLOOD CELLS 18:01:26 [facility] BLOOD GAS, ARTERIAL 2021-01-16 Kenny, Ara Magdaleno [facility] - 17:03:00 [facility] LACTIC ACID, ARTERIAL 2021-01-16 Kenny, Ara Sharla [facility] - 17:02:00 [facility] SPUTUM CULTURE + GRAM STAIN 2021-01-16 Kenny, [facility] - 17:02:00 [facility] VA INSERT 2021-01-[address] [facility] - CATH,ART,PERCUT,SHORTTERM 16:45:00 [facility] XR CHEST 1 VIEW PORTABLE / 2021-01-[address] [facility] - BEDSIDE 16:18:00 [facility] PREPARE PLASMA 2021-01-16 Kenny, [facility] Magdaleno [facility] - 16:15:00 [facility] XR CHEST 1 VIEW PORTABLE / 2021-01-[address] [facility] - BEDSIDE 15:43:00 [facility] BLOOD GAS, ARTERIAL 2021-01-16 Kenny, Ara Magdaleno [facility] - 15:41:00 [facility] BLOOD GAS, ARTERIAL 2021-01-16 Kenny, Ara Magdaleno [facility] - 15:17:00 [facility] 2D ECHO W/ DOPPLER 2021-01-[address] [facility] - (CW/PW/COLOR) 15:12:45 [facility] CBC W/PLT COUNT & AUTO 2021-01-[address] [facility] - DIFFERENTIAL 15:08:00 [facility] COMPREHENSIVE METABOLIC 2021-01-16 Kenny, Ara Magdaleno [facility] - PANEL 15:08:00 [facility] MAGNESIUM 2021-01-16 Kenny, Ara Magdaleno [facility] - 15:08:00 [facility] PHOSPHORUS 2021-01-16 Kenny, Ara Magdaleno [facility] - 15:08:00 [facility] CALCIUM, IONIZED 2021-01-16 Kenny, [facility]daleno [facility] - 15:08:00 [facility] LACTIC ACID, ARTERIAL 2021-01-16 Kenny, [facility] Magdaleno [facility] - 15:08:00 [facility] PT/APTT 2021-01-16 Gillet, Ara Magdaleno [facility] - 15:08:00 [facility] TYPE AND SCREEN, AUTOMATED 2021-01-16 Gillet, Ara Magdaleno [facility] - 15:08:00 [facility] (CELLAVISION MANUAL DIFF) 2021-01-16 [...] Tyrel, Zakia [facility] - 14:21:00 [facility] POCT-BLOOD GASES, VENOUS 2021-01-16 [...] Leonidas Ocampo [facility] - 07:04:00 [facility] APTT 2021-01-[address] [facility] - 04:47:00 [facility] PROTHROMBIN TIME/INR 2021-01-[address] [facility] - 04:47:00 [facility] CBC W/PLT COUNT & AUTO 2021-01-[address] [facility] - DIFFERENTIAL 03:24:00 [facility] MAGNESIUM 2021-01-[address] [facility] - 03:24:00 [facility] BASIC METABOLIC PANEL (7) 2021-01-[address] [facility] - 03:24:00 [facility] PHOSPHORUS 2021-01-[address] [facility] - 03:24:00 [facility] (CELLAVISION MANUAL DIFF) 2021-01-[address] [facility] - 03:24:00 [facility] XR CHEST 1 VIEW PORTABLE / 2021-01-16 Leon[facility] 00:28:00 [facility] POCT-GLUCOSE METER 2021-01-[address] [facility] - 00:04:00 [facility] LIPID PANEL 2021-01-[address] [facility] - 22:24:00 [facility] APTT 2021-01-[address] [facility] - 22:24:00 [facility] POCT-GLUCOSE METER 2021-01-[address] [facility] - 12:14:00 [facility] XR CHEST 1 VIEW PORTABLE / 2021-01-15 Leonidas [facility]campo [facility] 09:00:00 [facility] APTT 2021-01-[address] [facility] - 08:48:00 [facility] POCT-GLUCOSE METER 2021-01-[address] [facility] - 08:12:00 [facility] CBC W/PLT COUNT & AUTO 2021-01-[address] [facility] - DIFFERENTIAL 03:16:00 [facility] COMPREHENSIVE METABOLIC 2021-01-15 [facility] PANEL 03:16:00 [facility] MAGNESIUM 2021-01-[address] [facility] - 03:16:00 [facility] PROTHROMBIN TIME/INR 2021-01-[address] [facility] - 03:16:00 [facility] (CELLAVISION MANUAL DIFF) 2021-01-[address] [facility] - 03:16:00 [facility] POCT-GLUCOSE METER 2021-01-[address] [facility] - 21:14:00 [facility] PROTHROMBIN TIME/INR 2021-01-[address] [facility] - 13:01:00 [facility] HEMODIALYSIS INPATIENT 2021-01-14 [facility] - 12:00:15 [facility] ECG 12-LEAD 2021-01-14 Unknown, Hl7 Doctor [facility] - 11:17:11 [facility] HEPATITIS B SURFACE ANTIGEN 2021-01-[address] [facility] - 10:41:00 [facility] POCT-GLUCOSE METER 2021-01-[address] [facility] - 07:20:00 [facility] POCT-GLUCOSE METER 2021-01-[address] [facility] 03:35:00 [facility] CBC W/PLT COUNT & AUTO 2021-01-14 Taye Villatoro [facility] - DIFFERENTIAL 03:29:00 [facility] COMPREHENSIVE METABOLIC 2021-01-14 [facility] PANEL 03:29:00 [facility] MAGNESIUM 2021-01-[address] [facility] - 03:29:00 [facility] (CELLAVISION MANUAL DIFF) 2021-01-[address] [facility] - 03:29:00 [facility] XR CHEST 1 VIEW PORTABLE / 2021-01-14 [facility] 01:35:00 [facility] XR CHEST 1 VIEW PORTABLE / 2021-01-13 Chapo Kennedy [facility] BEDSIDE 19:12:00 [facility] INSERT NON-TUNNEL CV CATH 2021-01-13 Chapo Kennedy [facility] - 18:52:29 [facility] POCT-GLUCOSE METER 2021-01-[address] [facility] - 17:25:00 [facility] BASIC METABOLIC PANEL (7) 2021-01-[address] [facility] - 15:28:00 [facility] MAGNESIUM 2021-01-[address] [facility] - 15:28:00 [facility] BLOOD GAS, ARTERIAL 2021-01-[address] [facility] - 15[facility]28:00 [facility] [place] POTASSIUM 2021-01-[address] [facility] - 12:29:00 [facility] BLOOD GAS, ARTERIAL 2021-01-[address] [facility] - 11:59:00 [facility] POCT-GLUCOSE METER 2021-01-[address] [facility] - 11:47:00 [facility] BLOOD GAS, ARTERIAL 2021-01-[address] [facility] - 09:15:00 [facility] SODIUM NA-STAT LAB 2021-01-[address] [facility] - 09:15:00 [facility] POTASSIUM-STAT LAB 2021-01-[address] [facility] - 09:15:00 [facility] GLUCOSE-STAT LAB 2021-01-[address] [facility] - 09:15:00 [facility] HGB/HCT (H&H) - STAT LAB 2021-01-[address] [facility] - 09:15:00 [facility] POTASSIUM 2021-01-[address] [facility] - 09:14:00 [facility] MAGNESIUM 2021-01-13 [facility] [place]en [facility] - 09:14:00 [facility] PHOSPHORUS 2021-01-[address] [facility] - 09:14:00 [facility] (CELLAVISION MANUAL DIFF) 2021-01-[address] [facility] - 03:51:00 [facility] CBC W/PLT COUNT & AUTO 2021-01-13 Taye Villatoro [facility] - DIFFERENTIAL 03:51:00 [facility] COMPREHENSIVE METABOLIC 2021-01-13 [facility] PANEL 03:51[facility]00 [facility] MAGNESIUM 2021-01-[address] [facility] - 03:51:00 [facility] PHOSPHORUS 2021-01-[address] [facility] - 03:51:00 [facility] XR CHEST 1 VIEW PORTABLE / 2021-01-13 [facility] 00:14:00 [facility] PREPARE PLASMA 2021-01-[address] [facility] - 23:56:00 [facility] PREPARE RBC 2021-01-[address] [facility] - 23:55:00 [facility] PREPARE PLATELETS 2021-01-[address] [facility] - 23:55:00 [facility] PH, ARTERIAL 2021-01-12 Wor[place], [place] [facility] [...] Elin Vasquez [facility] - 12:19:00 [facility] BRONCHIAL CULTURE + GRAM 2021-01-[address] [facility] - STAIN 12:19:00 [facility] MAGNESIUM 2021-01-12 Worah, Galen [facility] - 09:17:00 [facility] PHOSPHORUS 2021-01-12 Worah, Galen [facility] - 09:17:00 [facility] BASIC METABOLIC PANEL (7) 2021-01-12 Worah, Galen [facility] - 09:17:00 [facility] POCT-GLUCOSE METER 2021-01-[address] [facility] - 06:29:00 [facility] POCT-GLUCOSE METER 2021-01-[address] [facility] - 03:26:00 [facility] CALCIUM, IONIZED 2021-01-12 , Nacho Wiseman [facility] - 03:15:00 [facility] LACTIC ACID, ARTERIAL 2021-01-12 Uk, Nacho Wiseman [facility] - 03:15:00 [facility] OXYGEN SATURATION, MEASURED 2021-01-12 Uk, Nacho Wiseman [facility] - 03:15:00 [facility] (CELLAVISION MANUAL DIFF) 2021-01-[address] [facility] - 03:07:00 [facility] PHOSPHORUS 2021-01-12 Wor, [facility] - 03:07:00 [facility] MAGNESIUM 2021-01-12 Wor, Galen [facility] - 03:07:00 [facility] CBC W/PLT COUNT & AUTO 2021-01-[address] [facility] - DIFFERENTIAL 03:07:00 [facility] COMPREHENSIVE METABOLIC 2021-01-12 T[facility]o [facility] - PANEL 03:07:00 [facility] BLOOD GAS, ARTERIAL 2021-01-[address] [facility] - 03:07:00 [facility] XR CHEST 1 VIEW PORTABLE / 2021-01-12 Scotty Benedicto [facility] 00:18:00 [facility] BLOOD GAS, ARTERIAL 2021-01-11 Uk, Nach[facility] Wiseman [facility] - 22:20:00 [facility] BASIC METABOLIC PANEL (7) 2021-01-11 Uk, [facility]neth [facility] - 22:20:00 [facility] LACTIC ACID, ARTERIAL 2021-01-11 Uk, Nacho Wiseman [facility] - 22:20:00 [facility] BLOOD GAS, ARTERIAL 2021-01-[address] [facility] - 20:48:00 [facility] OXYGEN SATURATION, MEASURED 2021-01-[address] [facility] - 20:46:00 [facility] XR CHEST 1 VIEW PORTABLE / 2021-01-11 , Ndu[facility] Bowen [facility] - [facility] 19:44:00 [facility] BLOOD GAS, ARTERIAL 2021-01-11 [facility], Nach[facility] Wiseman [facility] 19:36:00 [facility] Center PROTHROMBIN TIME/INR 2021-01-11 [facility], Nacho Wiseman [facility] - 19:36:00 [facility] Center APTT 2021-01-11 [facility], Nacho Wiseman [facility] - 19:36:00 [facility] Center FIBRINOGEN 2021-01-11 [facility], Nacho Wiseman [facility] - 19:36:00 [facility] THROMBOELASTOGRAPH (TEG) 2021-01-11 [facility], Nacho Wiseman [facility] - 19:36:00 [facility] CALCIUM, IONIZED 2021-01-11 Wor, [place] [facility] - 19:35:00 [facility] BASIC METABOLIC PANEL (7) 2021-01-11 Mcwilliams, Ramires-Vu Mcwilliams [facility] - 19:35:00 [facility] MAGNESIUM 2021-01-11 Mcwilliams, Ramires-Vu Mcwilliams [facility] - 19:35:00 [facility] PHOSPHORUS 2021-01-11 Mcwilliams, Ramires-Vu Mcwilliams [facility] - 19:35:00 [facility] BLOOD GAS, ARTERIAL 2021-01-11 [facility], Nach[facility] Wiseman [facility] 19:35:00 [facility] LACTIC ACID, ARTERIAL 2021-01-11 [facility], Nacho Wiseman [facility] - 19:35:00 Medical Center CBC (HEMOGRAM ONLY) 2021-01-11 [facility], Nach[facility] Wiseman [facility] 19:35:00 [facility] Center SODIUM NA-STAT LAB 2021-01-11 [facility], [facility] Wiseman [facility] - 19:35:00 [facility] Center POTASSIUM-STAT LAB 2021-01-11 [facility], Nach[facility] Wiseman [facility] - 19:35:00 [facility] GLUCOSE-STAT LAB 2021-01-11 [facility], Nach[facility] Wiseman [facility] - 19:35:00 [facility] HGB/HCT (H&H) - STAT LAB 2021-01-11 [facility], Nacho Wiseman [facility] - 19:35:00 [facility] TRANSFUSE PLASMA 2021-01-[address] [facility] - 18:01:22 [facility] BLOOD GAS, ARTERIAL 2021-01-[address] [facility] - 17:36:44 [facility] CALCIUM, IONIZED 2021-01-[address] [facility] - 17:36:44 [facility] SODIUM NA-STAT LAB 2021-01-[address] [facility] [facility] - 17:36:44 [facility] POTASSIUM-STAT LAB 2021-01-[address] [facility] [facility] - 17:36:44 [facility] GLUCOSE-STAT LAB 2021-01-[address] [facility] - 17:36:44 [facility] HGB/HCT (H&H) - STAT LAB 2021-01-[address] [facility] - 17:36:44 [facility] TRANSFUSE LEUKO-REDUCED RED 2021-01-11 Andrea Sharon Weller [facility] - BLOOD CELLS 17:35:09 [facility] TRANSFUSE LEUKO-REDUCED 2021-01-[address] [facility] - PLATELETS 17:34:22 [facility] TRANSFUSE LEUKO-REDUCED 2021-01-[address] [facility] - PLATELETS 17:33:58 [facility] POCT-ACT 2021-01-[address] [facility] - 17:28:00 [facility] BLOOD GAS, ARTERIAL 2021-01-[address] [facility] - 17:09:25 [facility] CALCIUM, IONIZED 2021-01-[address] [facility] - 17:09:25 [facility] PROTHROMBIN TIME/INR 2021-01-[address] [facility] - 17:09:25 [facility] APTT 2021-01-[address] [facility] - 17:09:25 [facility] FIBRINOGEN 2021-01-[address] - 17:09:25 [facility] PLATELET COUNT 2021-01-[address] [facility] - 17:09:25 [facility] SODIUM NA-STAT LAB 2021-01-[address] [facility] - 17:09:25 [facility] POTASSIUM-STAT LAB 2021-01-[address] [facility] - 17:09:25 [facility] GLUCOSE-STAT LAB 2021-01-[address] [facility] - 17:09:25 [facility] HGB/HCT (H&H) - STAT LAB 2021-01-[address] [facility] - 17:09:25 [facility] (CELLAVISION MANUAL DIFF) 2021-01-11 Estef[address] Mcwilliams [facility] - 17:09:00 [facility] CBC W/PLT COUNT & AUTO 2021-01-11 Estefany [facility]illiams [facility] - DIFFERENTIAL 17:09:00 [facility] POCT-ACT 2021-01-[address] [facility] - 17:08:00 [facility] BLOOD GAS, ARTERIAL 2021-01-[address] [facility] - 16:42:49 [facility] CALCIUM, IONIZED 2021-01-[address] [facility] - 16:42:49 [facility] SODIUM NA-STAT LAB 2021-01-[address] [facility] - 16:42:49 [facility] POTASSIUM-STAT LAB 2021-01-[address] [facility] - 16:42:49 [facility] GLUCOSE-STAT LAB 2021-01-[address] [facility] - 16:42:49 [facility] HGB/HCT (H&H) - STAT LAB 2021-01-[address] [facility] - 16:42:49 [facility] FUNGUS CULTURE + SMEAR 2021-01-[address] [facility] - 16:15:01 [facility] SURGICALLY OBTAINED CULTURE 2021-01-[address] [facility] - + GRAM STAIN 16:15:01 [facility] POCT-ACT 2021-01-[address] [facility] - 16:01:00 [facility] BLOOD GAS, ARTERIAL 2021-01-[address] [facility] - 15:58:32 [facility] SODIUM NA-STAT LAB 2021-01-[address] [facility] - 15:58:32 [facility] POTASSIUM-STAT LAB 2021-01-[address] [facility] - 15:58:32 [facility] GLUCOSE-STAT LAB 2021-01-[address] [facility] - 15:58:32 [facility] HGB/HCT (H&H) - STAT LAB 2021-01-[address] [facility] - 15:58:32 [facility] TISSUE EXAM 2021-01-[address] [facility] - 15:53:00 [facility] POCT-ACT 2021-01-11 Benedicto Witt [facility] - 15:33:00 [facility] BLOOD GAS, ARTERIAL 2021-01-[address] [facility] - 15:30:10 [facility] SODIUM NA-STAT LAB 2021-01-[address] [facility] - 15:30:10 [facility] POTASSIUM-STAT LAB 2021-01-[address] [facility] - 15:30:10 [facility] GLUCOSE-STAT LAB 2021-01-[address] [facility] - 15:30:10 [facility] HGB/HCT (H&H) - STAT LAB 2021-01-[address] [facility] - 15:30:10 [facility] BLOOD GAS, ARTERIAL 2021-01-[address] [facility] - 14:57:31 [facility] SODIUM NA-STAT LAB 2021-01-[address] [facility] - 14:57:31 [facility] POTASSIUM-STAT LAB 2021-01-[address] [facility] - 14:57:31 [facility] GLUCOSE-STAT LAB 2021-01-[address] [facility] - 14:57:31 [facility] HGB/HCT (H&H) - STAT LAB 2021-01-[address] [facility] - 14:57:31 [facility] POCT-ACT 2021-01-[address] [facility] - 14:48:00 [facility] ANESTHESIA VANCE 2021-01-[address] [facility] - 14:31:03 [facility] POCT-ACT 2021-01-[address] [facility] - 14:28:00 [facility] BLOOD GAS, ARTERIAL 2021-01-[address] [facility] - 14:06:20 [facility] SODIUM NA-STAT LAB 2021-01-[address] [facility] - 14:06:20 [facility] POTASSIUM-STAT LAB 2021-01-[address] [facility] - 14:06:20 [facility] GLUCOSE-STAT LAB 2021-01-[address] [facility] - 14:06:20 [facility] HGB/HCT (H&H) - STAT LAB 2021-01-[address] [facility] - 14:06:20 [facility] REPLACEMENT,VALVE MITRAL 2021-01-[address] [facility] - 13:12:00 [facility] VANCE,3D 2021-01-[address] [facility] - 13:12:00 [facility] POCT-GLUCOSE METER 2021-01-[address] [facility] - 12:41:00 [facility] BLOOD GAS, ARTERIAL 2021-01-[address] [facility] - 09:38:00 [facility] BASIC METABOLIC PANEL (7) 2021-01-11 [facility] [place] [facility] - 09:22:00 [facility] CALCIUM, IONIZED 2021-01-11 [facility] [place] [facility] - 09:22:00 [facility] PHOSPHORUS 2021-01-11 [facility] - 09:22:00 [facility] MAGNESIUM 2021-01-11 [facility] [place] [facility] - 09:22:00 [facility] XR CHEST 1 VIEW PORTABLE / 2021-01-11 Benedicto Witt [facility] 09:19:00 [facility] POCT-GLUCOSE METER 2021-01-[address] [facility] - 06:47:00 [facility] COMPREHENSIVE METABOLIC 2021-01-11 T[facility]o [facility] - PANEL 04:05:00 [facility] MAGNESIUM 2021-01-[address] [facility] - 04:05:00 [facility] PHOSPHORUS 2021-01-[address] [facility] - 04:05:00 [facility] BLOOD GAS, ARTERIAL 2021-01-[address] [facility] - 04:05:00 [facility] (CELLAVISION MANUAL DIFF) 2021-01-[address] [facility] - 04:04:00 [facility] CBC W/PLT COUNT & AUTO 2021-01-[address] [facility] - DIFFERENTIAL 04:04:00 [facility] CALCIUM, IONIZED 2021-01-[address] [facility] - 04:04:00 [facility] POCT-GLUCOSE METER 2021-01-[address] [facility] - 00:08:00 [facility] SARS-COV2/RT-PCR (HS & REF 2021-01-[address] [facility] - LABS) 23:17:00 [facility] BASIC METABOLIC PANEL (7) 2021-01-10 [facility] 23:14:00 [facility] CALCIUM, IONIZED 2021-01-10 [facility] [place] [facility] - 23:14:00 [facility] PHOSPHORUS 2021-01-10 [facility] [facility] - 23:14:00 [facility] MAGNESIUM 2021-01-10 [facility] [place] [facility] - 23:14:00 [facility] VA INSERT 2021-01-[address] [facility] - CATH,ART,PERCUT,SHORTTERM 19:00:12 [facility] SPUTUM CULTURE + GRAM STAIN 2021-01-[address] [facility] - 17:15:00 [facility] BLOOD CULTURE 2021-01-[address] [facility] - 17:15:00 [facility] 2D ECHO W/ DOPPLER 2021-01-10 Taye Villatoro [facility] - (CW/PW/COLOR) 16:47:17 [facility] PROTHROMBIN TIME/INR 2021-01-[address] [facility] [facility] - 16:25:00 [facility] APTT 2021-01-10 Irving, Taye Kapadia [facility] - 16:25:00 [facility] FIBRINOGEN 2021-01-10 Irving, Taye Kapadia [facility] - 16:25:00 [facility] BLOOD GAS, VENOUS 2021-01-10 Irving, T[facility]adia [facility] - 16:25:00 [facility] XR CHEST 1 VIEW PORTABLE / 2021-01-10 Irving, [facility] 15:41:00 [facility] TYPE AND SCREEN, AUTOMATED 2021-01-10 Irving, [facility] - 15:38:00 [facility] (CELLAVISION MANUAL DIFF) 2021-01-10 Irving, Ames [facility] - 15:38:00 [facility] CBC W/PLT COUNT & AUTO 2021-01-10 Irving, AmesKang Soloriokes - DIFFERENTIAL 15:38:00 [facility] COMPREHENSIVE METABOLIC 2021-01-10 Irving, Ames [facility] - PANEL 15:38:00 [facility] MAGNESIUM 2021-01-10 Irving, Taye Kapadia [facility] - 15:38:00 [facility] PHOSPHORUS 2021-01-10 Irving, Taye Kapadia [facility] - 15:38:00 [facility] LACTIC ACID, VENOUS 2021-01-10 Irving, Taye Kapadia [facility] - 15:38:00 [facility] POCT-GLUCOSE METER 2021-01-10 Trey Galvez [facility] - 15:01:00 [facility] ECG 12-LEAD 2021-01-10 Unknown, Hl[facility] Doctor [facility] - 14:08:05 [facility] EXTERNAL PROVIDER RECORDS 2019-08-03 Doctor Unassigned, [facility] 06:01:00 [facility] Plan of Care Planned Activity Planned Date Details Comments Source Future Scheduled 2024-01-[address] [facility] - Test 00:00:00 (procedure) [code = [facility] 15453117] Future Scheduled 2024-01-[address] [facility] - Test 00:00:00 (procedure) [code = [facility] [id number]] Future Scheduled 2024-01-[address] [facility] - Test 00:00:00 (procedure) [code = [facility] [id number]] Future Scheduled 2021-02-[address] [...] Type Clinicians Facility Department ID 2021-04-06 Outpatient [facility] [id number] Univers 23:36:40 [facility] 2021-04-06 Outpatient [facility] [id number] Univers 13:49:25 [facility] 2021-03-14 Outpatient [id number] Memoria 16:36:28 [id number] Bolivar [id number] 2021-01-09 [facility] Cardiology [id number] 00:00:00 Encounter [facility] 2019-03-15 Inpatient [facility] [id number] [facility] W 17:40:00 2021-04-12 2021-04-12 Outpatient DEDE [facility] [id number] [facility] 13:05:26 13:05:26 [facility] 2021-04-04 2021-04-04 [facility] [id number] [facility] 00:00:00 00:00:00 [facility] 2021-03-27 2021-03-27 Outpatient [facility] [id number] [facility] 00:00:00 00:00:00 [facility] 2021-03-27 2021-03-27 Outpatient [facility] [id number] [facility] 00:00:00 00:00:00 [facility] 2021-01-10 2021-03-25 Inpatient DEDE ORTIZ [facility] Emergency [id number] [facility] 14:49:00 17:10:00 AHMED 2021-03-20 2021-03-20 Outpatient STAN [facility] [id number] [facility] 00:00:00 00:00:00 [facility] 2021-03-20 2021-03-20 Outpatient STAN, SLEH [facility] [id number] [facility] 00:00:00 00:00:00 [facility] 2021-03-10 2021-03-10 Outpatient STAN [facility] [id number] [facility] 00:00:00 00:00:00 [facility] 2021-03-01 2021-03-01 Outpatient STAN [facility] [id number] [facility] 00:00:00 00:00:00 [facility] 2021-02-15 2021-02-15 Outpatient STAN [facility] [id number] [facility] 00:00:00 00:00:00 [facility] 2021-02-15 2021-02-15 Outpatient STAN SLE [facility] [id number] [facility] 00:00:00 00:00:00 [facility] 2021-01-31 2021-01-31 Outpatient STAN [facility] [id number] [facility] 00:00:00 00:00:00 [facility] 2021-01-23 2021-01-23 Outpatient [facility] [id number] [facility] 11:45:00 23:59:00 Ellie 2021-01-23 2021-01-23 Surgery Omar, [facility] [id number] 14:18:00 16:57:00 Trey [email or web address] 2021-01-23 2021-01-23 Anesthesia Jaison Ariza [facility] [id number] 12:46:00 15:41:00 Event Alden Arias [facility] 2021-01-22 2021-01-22 Anesthesia Ekta, [facility] [id number] 06:27:40 06:27:40 Event Francheska [facility] 2021-01-21 2021-01-21 Travel [facility] [id number] [facility] 00:[facility]:00 00:00:00 [facility] 2021-01-16 2021-01-16 Outpatient BCM BC [id number] [facility] 00:00:00 23:59:00 [facility] 2021-01-16 2021-01-16 Anesthesia Debra, [facility] [id number] 14:00:00 14:00:00 Event Arcadio Hodge [facility] 2021-01-11 2021-01-11 Anesthesia Sharon Mendez [facility] [id number] 13:02:00 19:30:00 Event Suzie Beth [facility] 2021-01-11 2021-01-11 Surgery Omar [facility] [id number] 13:43:00 16:58:00 [facility] 2021-01-10 2021-01-10 Outpatient BCM BCM [id number] [facility] 14:49:00 23:59:00 [facility] 2021-01-10 2021-01-10 Outpatient BCM BC [id number] [facility] 14:49:00 14:49:00 [facility] 2021-01-10 2021-01-10 Orders [facility] [id number] 00:00:00 00:00:00 Only [facility] 2020-12-15 2020-12-15 [facility]patient [facility] [id number] Univers 13:30:00 13:30:00 WONDIFUL [id number] ity o f [facility] 2020-12-15 2020-12-[address] [facility] [id number] Univers 13:30:00 13:30:00 WONDIFUL ity o f [facility] 2020-02-01 2020-02-01 [facility] [id number] 00:00:00 00:00:00 Agus Tenorio SPECIALTY [id number] [facility] [id number] CENTER AT [id number] [address] 2020-02-01 2020-02-01 Telephone [facility] [id number] Univers 00:00:00 00:00:00 Agus R SPECIALTY [id number] it[id number] [id number] Or beth PEREZ [address] [place] [address] 2019-12-22 2019-12-22 Telephone Faculty, [facility] [id number] 00:00:00 00:00:00 Vascular Y HEALTH [id number] Surg CLINICS [id number] [facility] 2019-12-22 2019-12-22 Telephone Faculty, [facility] [id number] Univers 00:00:00 00:00:00 Vascular Y HEALTH [id number] ity of Surg CLINICS [id number] [id number] [facility] [address] 2019-11-19 2019-11-19 Telephone [facility], [facility] [id number] 00:00:00 00:00:00 Ted Y HEALTH [id number] CLINICS [id number] [facility] 2019-11-19 2019-11-19 Telephone [facility], [facility] [id number] Univers 00:00:00 00:00:00 Ted Y HEALTH [id number] i ty of CL[place]ICS [id number] [id number] [place] [address] [address] 2019-11-04 2019-11-04 Telephone [facility], [facility] [id number] 00:00:00 00:00:00 Ted Y HEALTH [id number] CLINICS [id number] [facility] 2019-11-04 2019-11-04 Telephone Bowen, [facility] 1.2.840.114 [id number] Univers 00:00:00 00:00:00 Ted Y HEALTH 350.1.13.10 i ty of [place] [id number] [address] 2019-08-19 2019-09-01 Office NICOLE Bowen [id number] [id number] Univers 11:01:36 12:14:59 Visit Ted Dyson [facility] 350.1.13.10 i ty of CLINICS 4.2.7.2.686 [place] maurer [id number] [address] 2019-08-19 2019-08-[address] [facility] [id number] Univers 10:15:00 10:15:00 TED ity of [facility] 2019-08-03 2019-08-03 Orders Doctor BRENT 1.2.840.114 [id number] Univers 00:00:00 00:00:00 Only Unassigned, ROXIE 350.1.13.10 ity of [place] [facility] 4.2.7.2.686 Mark as [phone] [address] Results Test Description Test Time Test Comments Results Result Comments Source PROTHROMBIN TIME/INR 2021-03-25 06:33:53 Test Item Value Reference Range Interpretation Comme nts PROTIME (BEAKER) (test code 28.1 seconds 11.9-14.2 H = 759) INR (BEAKER) (test code = 2.67 See_Comment [ Automated message] The [employer]) system which ge nerated this result transmit [...] Comments SARS-COV2/RT-PCR (test code = Negative Negative 4667548) Negative result for this test determines that [...] Healthcare Providers:https://www.molecular.mcdonald/jermaine/RT SARS-CoV-2 HCP Fact Sheet 51- 875947.pdfFact Sheet for Healthcare Patients:https://www.molecular.mcdonald/jermaine/RT SARS-CoV-2 Patient Fact Sheet EN 51-397981Q0.pdfBASI METABOLIC [id number] 16:24:38 Test Item Value Reference Range Interpretation [...] S NOT APPLICABLE FOR DIALYSIS PATIEN TS. B[employer] [place] Worker ID - DBCBC (HEMOGRAM ONLY)2021-03-24 16:04:46 Test [...] = 413) RAD, CHEST, 1 VIEW, NON [id number] 15:20:00Reason for exam:->chfShould this be performed at the bedside?->Yes [facility] 1975 Sex: MAddendum BeginsREPORT STATUS:A Addendum: No evidence of active tuberculosis. Signed: Re Cantueport Verified Date/Time: 03/24/2021 15:20:26 Reading Location: [address] Neuro Reading RoomAddendum EndsFINAL REPORT RAD, [...] Cantuort Verified Date/Time: 03/14/2021 07:27:07 Reading Location: [facility] Radiology Reading Room PROTHROMBIN TIME/[id number] 04:54:57 Test Item Value Reference Range Interpretation Comments PROTIME (BEAKER) 27.8 seconds 11.9-14.2 H (test code = 759) INR (BEAKER) (test 2.63 See_Comment [Automat ed message] code = 370) The system [employer] generated this result transmitted ref erence range: <=5.90. The reference range was not used to int erpret this result as normal/abnormal . RECOMMENDED COUMADIN/WARFARIN INR THERAPY RANGESSTANDARD DOSE: 2.0 - 3.0 Includes: PROPHYLAXIS forvenous thrombosis, systemic embolization; TREATMENT for venous thrombosis and/or pulmonary embolus.HIGH RISK: Target INR is 2.5-3.5 for patients with mechanical heart valves.PROTHROMBIN TIME/[id number] 05:42:02 Test Item Value Reference Range Interpretation Comments PROTIME (BEAKER) 25.9 seconds 11.9-14.2 H (test code = 759) INR (BEAKER) (test 2.40 See_Comment [Automat ed message] code = 370) The system [employer] generated this result transmitted ref erence range: <=5.90. The reference range was not used to int erpret this result as normal/abnormal . RECOMMENDED COUMADIN/WARFARIN INR THERAPY RANGESSTANDARD DOSE: 2.0 - 3.0 Includes: PROPHYLAXIS forvenous thrombosis, systemic embolization; TREATMENT for venous thrombosis and/or pulmonary embolus.HIGH RISK: Target INR is 2.5-3.5 for patients with mechanical heart valves.BASIC METABOLIC [id number] 07:39:53 Test Item Value Reference Range Interpretation [...] S NOT APPLICABLE FOR DIALYSIS PATIEN TS. [employer] [place] Worker ID - PIAYA LPROTHROMBIN TIME/[id number] 06:23:41 Test Item Value Reference Range Interpretation Comments PROTIME (BEAKER) 26.2 seconds 11.9-14.2 H (test code = 759) INR (BEAKER) (test 2.43 See_Comment [Automat ed message] code = 370) The system [employer] generated this result transmitted ref erence range: [...] (BEAKER) (test code = 2801) BASIC METABOLIC [id number] 07:28:56 Test Item Value Reference Range Interpretation [...] S NOT APPLICABLE FOR DIALYSIS PATIEN TS. [employer] [place] Worker ID - KT GPROTHROMBIN TIME/[id number] 05:52:11 Test Item Value Reference Range Interpretation Comments PROTIME (BEAKER) 25.3 seconds 11.9-14.2 H (test code = 759) INR (BEAKER) (test 2.33 See_Comment [Automat ed message] code = 370) The system [employer] generated this result transmitted ref erence range: [...] (BEAKER) (test code = 2801) BASIC METABOLIC [id number] 06:54:24 Test Item Value Reference Range Interpretation [...] S NOT APPLICABLE FOR DIALYSIS PATIEN TS. [employer] [place] Worker ID - PIAYA [id number] 06:42:10 Test Item Value Reference Range Interpretation Comments MAGNESIUM (BEAKER) (test code = 2.4 mg/dL 1.6-2.6 627) [employer] [place] Worker ID - PIAYA LPROTHROMBIN TIME/[id number] 04:45:47 Test Item Value Reference Range Interpretation Comments PROTIME (BEAKER) 27.8 seconds 11.9-14.2 H (test code = 759) INR (BEAKER) (test 2.62 See_Comment [Automat ed message] code = 370) The system [employer] generated this result transmitted ref erence range: [...] (BEAKER) (test code = 2801) BASIC METABOLIC [id number] 06:18:33 Test Item Value Reference Range Interpretation [...] S NOT APPLICABLE FOR DIALYSIS PATIEN TS. [employer] [place] Worker ID - LINA [id number] 06:17:36 Test Item Value Reference Range Interpretation Comments MAGNESIUM (BEAKER) (test code = 2.3 mg/dL 1.6-2.6 627) B[employer] [place] Worker ID - LINA LPROTHROMBIN TIME/[id number] 05:08:54 Test Item Value Reference Range Interpretation Comments PROTIME (BEAKER) 25.0 seconds 11.9-14.2 H (test code = 759) INR (BEAKER) (test 2.30 See_Comment [Automat ed message] code = 370) The system [employer] generated this result transmitted ref erence range: [...] PERCENT (BEAKER) (test code = 2801) PROTHROMBIN TIME/[id number] 08:29:25 Test Item Value Reference Range Interpretation Comments PROTIME (BEAKER) 21.5 seconds 11.9-14.2 H (test code = 759) INR (BEAKER) (test 1.90 See_Comment [Automat ed message] code = 370) The system [employer] generated this result transmitted ref erence range: <=5.90. The reference range was not used to int erpret this result as normal/abnormal . RECOMMENDED COUMADIN/WARFARIN INR THERAPY RANGESSTANDARD DOSE: 2.0 - 3.0 Includes: PROPHYLAXIS forvenous thrombosis, systemic embolization; TREATMENT for venous thrombosis and/or pulmonary embolus.HIGH RISK: Target INR is 2.5-3.5 for patients with mechanical heart valves.BASIC METABOLIC [id number] 08:04:03 Test Item Value Reference Range Interpretation [...] S NOT APPLICABLE FOR DIALYSIS PATIEN TS. [employer] [place] Worker ID - [id number] 07:56:20 Test Item Value Reference Range Interpretation Comments MAGNESIUM (BEAKER) (test code = 2.2 mg/dL 1.6-2.6 627) B[employer] [place] Worker ID - DBCBC W/PLT COUNT & AUTO [id number] 06:24:39 Test Item Value Reference Range Interpretation [...] (BEAKER) (test code = 2801) BASIC METABOLIC [id number] 05:13:11 Test Item Value Reference Range Interpretation [...] S NOT APPLICABLE FOR DIALYSIS PATIEN TS. [employer] [place] Worker ID - [id number] 05:12:41 Test Item Value Reference Range Interpretation Comments MAGNESIUM (BEAKER) (test code = 2.0 mg/dL 1.6-2.6 627) B[employer] [place] Worker ID - jrlPROTHROMBIN TIME/[id number] 04:43:24 Test Item Value Reference Range Interpretation Comments PROTIME (BEAKER) 19.8 seconds 11.9-14.2 H (test code = 759) INR (BEAKER) (test 1.70 See_Comment [Automat ed message] code = 370) The system [employer] generated this result transmitted ref erence range: [...] (BEAKER) (test code = 2801) BASIC METABOLIC [id number] 06:02:17 Test Item Value Reference Range Interpretation [...] S NOT APPLICABLE FOR DIALYSIS PATIEN TS. [place] [place] Worker ID - LINA [id number] 05:58:16 Test Item Value Reference Range Interpretation Comments PHOSPHORUS (BEAKER) (test code = 3.5 mg/dL 2.3-4.7 604) B[employer] [place] Worker ID - LINA [id number] 05:58:15 Test Item Value Reference Range Interpretation Comments MAGNESIUM (BEAKER) (test code = 2.0 mg/dL 1.6-2.6 627) B[employer] [place] Worker ID - LINA LCBC W/PLT COUNT & AUTO [id number] 05:27:17 Test Item Value Reference Range Interpretation [...] PERCENT (BEAKER) (test code = 2801) PROTHROMBIN TIME/[id number] 05:24:58 Test Item Value Reference Range Interpretation Comments PROTIME (BEAKER) 19.3 seconds 11.9-14.2 H (test code = 759) INR (BEAKER) (test 1.65 See_Comment [Automat ed message] code = 370) The system [employer] generated this result transmitted ref erence range: <=5.90. The reference range was not used to int erpret this result as normal/abnormal . RECOMMENDED COUMADIN/WARFARIN INR THERAPY RANGESSTANDARD DOSE: 2.0 - 3.0 Includes: PROPHYLAXIS forvenous thrombosis, systemic embolization; TREATMENT for venous thrombosis and/or pulmonary embolus.HIGH RISK: Target INR is 2.5-3.5 for patients with mechanical heart valves.CALCIUM, [id number] 05:17:50 Test Item Value Reference Range Interpretation Comments CALCIUM IONIZED (BEAKER) (test 1.18 mmol/L 1.12-1.27 code = 698) PH, BLOOD (BEAKER) (test code = 7.44 1810) BASIC METABOLIC [id number] 04:50:11 Test Item Value Reference Range Interpretation [...] S NOT APPLICABLE FOR DIALYSIS PATIEN TS. [employer] [place] Worker ID - [id number] 04:37:45 Test Item Value Reference Range Interpretation Comments MAGNESIUM (BEAKER) (test code = 2.1 mg/dL 1.6-2.6 627) B[employer] [place] Worker ID - jrlPROTHROMBIN TIME/[id number] 04:31:43 Test Item Value Reference Range Interpretation Comments PROTIME (BEAKER) 17.3 seconds 11.9-14.2 H (test code = 759) INR (BEAKER) (test 1.44 See_Comment [Automat ed message] code = 370) The system [employer] generated this result transmitted ref erence range: [...] PERCENT (BEAKER) (test code = 2801) PROTHROMBIN TIME/[id number] 07:23:37 Test Item Value Reference Range Interpretation Comments PROTIME (BEAKER) 18.6 seconds 11.9-14.2 H (test code = 759) INR (BEAKER) (test 1.58 See_Comment [Automat ed message] code = 370) The system [employer] generated this result transmitted ref erence range: [...] Comments SARS-COV2/RT-PCR (test code = Negative Negative 1400780) Negative result for this test determines that [...] Healthcare Providers:https://www.molecular.mcdonald/jermaine/RT SARS-CoV-2 HCP Fact Sheet 51- 760401.pdfFact Sheet for Healthcare Patients:https://www.molecular.mcdonald/jermaine/RT SARS-CoV-2 Patient Fact Sheet EN [id number].[id number] 02:21:39 Test Item Value Reference Range Interpretation Comments MAGNESIUM (BEAKER) (test code = 1.9 mg/dL 1.6-2.6 627) [employer] [place] Worker ID - VALDEZ MBASIC METABOLIC [id number] 02:14:15 Test Item Value Reference Range Interpretation [...] S NOT APPLICABLE FOR DIALYSIS PATIEN TS. B[employer] [place] Worker ID - VALDEZ MHEMOGLOBIN AND [id number] 01:40:58 Test Item Value Reference Range Interpretation Comments HEMOGLOBIN (BEAKER) (test code = 8.2 GM/DL 13.7-17.5 L 410) HEMATOCRIT (BEAKER) (test code = 25.5 % 40.1-51.0 L 411) B[employer] [place] Worker ID - [id number], [id number] 23:45:00Unlisted Reason for Exam - Click Yes and Enter Reason Below->NoWill this procedure require oral co ntrast?->NoCOLOR[facility] : 1975 Sex: [...] (test code = 25 mg/dL 14-258 366) B[employer] [place] Worker ID - [id number] 15:44:30 Test Item Value Reference Range Interpretation Comments FERRITIN (BEAKER) (test code = 1918.52 ng/mL 5.00-275.00 H 361) B[employer] [place] Worker ID - DBOperator ID - DBVITAMIN B12 AND [id number] 15:41:58 Test Item Value Reference Range Interpretation Comments VITAMIN B12 (BEAKER) 524 pg/mL 213-816 (test code = 774) FOLATE (BEAKER) 6.10 ng/mL See_Comment L [Automated message] (test code = 362) The system which generated this result transmitted ref erence range: >=7.00. The reference range was not used to interpr et this result as normal/abnormal . B[employer] [place] Worker ID - DBOperator ID - DBLACTATE DEHYDROGENASE (LDH)2021-03-13 14:43:19 Test Item Value Reference Range Interpretation Comments LACTATE DEHYDROGENASE 580 U/L 125-220 H Specim en moderately (BEAKER) (test code = hemoly zed 635) B[employer] [place] Worker ID - GEMINI GILBERTYRN, TIBC, % SAT. (WITHOUT FERRITIN)2021-03-13 14:39:07 Test Item Value Reference Range Interpretation Comments IRON (BEAKER) (test code = 547) 63.0 ug/dL 40.0-160.0 TOTAL IRON BINDING CAPACITY 155 ug/dL 250-450 L (BEAKER) (test code = 769) IRON % SATURATION (2) (BEAKER) 41 % 20-55 (test code = 2590) B[employer] [place] Worker ID - GEMINI FPLASMA FREE [id number] 14:30:24 Test Item Value Reference Range Interpretation Comments HEMOGLOBIN PLASMA (BEAKER) (test 90.0 mg/dl 0.0-30.0 H code = 1054) HEMOGLOBIN AND [id number] 14:23:29 Test Item Value Reference Range Interpretation Comments HEMOGLOBIN (BEAKER) (test code = 8.2 GM/DL 13.7-17.5 L 410) HEMATOCRIT (BEAKER) (test code = 24.8 % 40.1-51.0 L 411) B[employer] [place] Worker ID - GretaRETICULOCYTE [id number] 14:23:27 Test Item Value Reference Range Interpretation Comments RETICULOCYTE COUNT PCT (BEAKER) (test 2.3 % 0.5-1.8 H code = 575) B[employer] [place] Worker ID - [id number], CHEST, 1 VIEW, NON [id number] 09:09:00Reason for exam:->chfShould this be performed at the bedside?->Yesafter HD today qt 11 [facility] : 1975 Sex: MFINAL [...] Cantu Verified Date/Time: 03/13/2021 09:09:22 Reading Location: [facility] Radiology Reading Room BASIC METABOLIC [id number] 04:12:57 Test Item Value Reference Range Interpretation [...] S NOT APPLICABLE FOR DIALYSIS PATIEN TS. [employer] [place] Worker ID - KENNETH [id number] 04:09:45 Test Item Value Reference Range Interpretation Comments MAGNESIUM (BEAKER) (test code = 2.3 mg/dL 1.6-2.6 627) [employer] [place] Worker ID Doretha COOPER WPROTHROMBIN TIME/[id number] 03:56:35 Test Item Value Reference Range Interpretation Comments PROTIME (BEAKER) 19.0 seconds 11.9-14.2 H (test code = 759) INR (BEAKER) (test 1.62 See_Comment [Automat ed message] code = 370) The system [employer] generated this result transmitted ref erence range: [...] (test Negative Not Detected, Negative, code = 3392046) See external report for linked test SARS-COV-2 PERFORMING LAB [facility] (test code = 0865674) Negative result for this test determines that [...] 564(g) of the Act.Fact Sheet for Healthcare Providers:https://www.PoshVine.Pili Pop/sites/default/files/product/documents/Fact_Shee a_IP_Zwomaruls_Xcfc_KTHW-BxV-0.pdfFact Sheet for Healthcare Patients:https://www.[employer]ine.Pili Pop/sites/default/files/product/ documents/Rifw_Dsatg_Yzrnjxvq_Xyaq_WTGY-HrP-3.pdfPerforming Laboratory:[facility], [place] [address]TNN, CHEST, 1 VIEW, NON [id number] 08:32:00Reason for exam:->Assess cardiopulmonary statusShould this be performed at the bedside?->Yes [facility] : 1975 Sex: [...] living Verified Date/Time: 03/12/2021 08:32:05 Reading Location: [facility] B1 C013Y CT Body Reading Room BASIC METABOLIC [id number] 07:41:58 Test Item Value Reference Range Interpretation [...] S NOT APPLICABLE FOR DIALYSIS PATIEN TS. [employer] [place] Worker ID Doretha COOPER [facility] (HEMOGRAM ONLY)2021-03-12 05:39:27 Test Item Value Reference [...] (BEAKER) (test code = 413) BASIC METABOLIC [id number] 04:49:56 Test Item Value Reference Range Interpretation [...] S NOT APPLICABLE FOR DIALYSIS PATIEN TS. [place] [place] Worker ID - KENNETH RUBIYOHANA SENSITIVITY TROPONIN [id number] 04:31:11 Test Item Value Reference Range Interpretation Comments HIGH SENSITIVITY 113 pg/ml See_Comment H [Automated message] TROPONIN I (test code The sy stem which = 5710694) generated this result transmitted ref erence range: <=35. Th e reference range was not used to int erpret this result as normal/abnormal . [employer] [place] Worker ID - KENNETH WThe CHIEF SAFETY OFFICER STAT High Sensitivity Troponin-I results should be used in conjunction with other diagnostic information such as ECG, clinical observations and information, and patient symptoms to aid in the diagnosis of DC.PROTHROMBIN TIME/[id number] 04:20:43 Test Item Value Reference Range Interpretation Comments PROTIME (BEAKER) 19.7 seconds 11.9-14.2 H (test code = 759) INR (BEAKER) (test 1.69 See_Comment [Automat ed message] code = 370) The system [employer] generated this result transmitted ref erence range: <=5.90. The reference range was not used to int erpret this result as normal/abnormal . RECOMMENDED COUMADIN/WARFARIN INR THERAPY RANGESSTANDARD DOSE: 2.0 - 3.0 Includes: PROPHYLAXIS forvenous thrombosis, systemic embolization; TREATMENT for venous thrombosis and/or pulmonary embolus.HIGH RISK: Target INR is 2.5-3.5 for patients with mechanical heart valves.BASIC METABOLIC [id number] 21:53:20 Test Item Value Reference Range Interpretation [...] S NOT APPLICABLE FOR DIALYSIS PATIEN TS. [employer] [place] Worker ID - [id number] 21:52:49 Test Item Value Reference Range Interpretation Comments PHOSPHORUS (BEAKER) (test code = 3.7 mg/dL 2.3-4.7 604) B[employer] [place] Worker ID - DBCBC W/PLT COUNT & AUTO [id number] 21:37:55 Test Item Value Reference Range Interpretation [...] 0-100 H (BEAKER) (test code = 700) B[employer] [place] Worker ID - KT GRAD, CHEST, 1 VIEW, NON [id number] 19:27:00Reason for exam:->SOBCOLORADO RIVER MED[facility]ENTERName: [facility] : 1975 Sex: [...] Domingo Duron MDReport Verified Date/Time: 03/11/2021 19:27:48 [id number] 19:26:03 Test Item Value Reference Range Interpretation Comments POC-GLUCOSE ([facility]) 101 mg/dL 70-110 : TESTE D AT [place] [address] (test code = 1855) [facility], [address]: B[employer] [place] Worker/Techni won ID = [id number] for MARF [place], LUCA WUDH-[id number] 19:26:01 Test Item Value Reference Range Interpretation Comments POC-HEMATOCRIT 27 % 40-50 L : [place] Worker/Te chnician ID = ([facility]) (test code = 586756 for MARFIL, LUCA 185) [id number] 19:25:59 Test Item Value Reference Range Interpretation Comments POC-HEMOGLOBIN 9.2 g/dL 13.0-16.8 L : TESTED AT [place] [address] ([facility]) (test code = NORM [place], 1856) [address]: B[employer] [place] Worker/Techni won ID = [id number] for MARF [place], LUCA [id number]-[id number] 19:25:57 Test Item Value Reference Range Interpretation Comments POC-POTASSIUM 4.1 meq/L 3.6-5.5 : TESTED AT [place] [address] ([facility]) (test code [facility], = 1540) [address]: B[employer] [place] Worker/Techni won ID = [id number] for MARF [place], LU[place] [id number]-[id number] 19:25:55 Test Item Value Reference Range Interpretation Comments POC-SODIUM ([facility]) 140 meq/L 135-148 : TESTED AT [facility] [address] (test code = 1542) [place], [address]: B[employer] [place] Worker/Techni won ID = [id number] for LUCA ARAMBULA POCT-BLOOD GASES, [id number] 19:25:53 Test Item Value Reference Range Interpretation [...] 5.0 meq/L -2.0-3.0 H : TESTED AT [facility] [address] [facility]-P[facility], (BEAKER) (test code [address]: = 1841) B[employer] [place] Worker/Techni won ID = [id number] for LUCA ARAMBULA PROTHROMBIN TIME/[id number] 05:38:58 Test Item Value Reference Range Interpretation Comments PROTIME (BEAKER) 22.0 seconds 11.9-14.2 H (test code = 759) INR (BEAKER) (test 1.95 See_Comment [Automat ed message] code = 370) The system [employer] generated this result transmitted ref erence range: <=5.90. The reference range was not used to int erpret this result as normal/abnormal . RECOMMENDED COUMADIN/WARFARIN INR THERAPY RANGESSTANDARD DOSE: 2.0 - 3.0 Includes: PROPHYLAXIS forvenous thrombosis, systemic embolization; TREATMENT for venous thrombosis and/or pulmonary embolus.HIGH RISK: Target INR is 2.5-3.5 for patients with mechanical heart valves.BASIC METABOLIC [id number] 07:13:10 Test Item Value Reference Range Interpretation [...] S NOT APPLICABLE FOR DIALYSIS PATIEN TS. [employer] [place] Worker ID - [id number] 07:11:21 Test Item Value Reference Range Interpretation Comments PHOSPHORUS (BEAKER) (test code = 5.0 mg/dL 2.3-4.7 H 604) [place] Worker ID - ADMINPROTHROMBIN TIME/[id number] 06:33:50 Test Item Value Reference Range Interpretation Comments PROTIME (BEAKER) 33.3 seconds 11.9-14.2 H (test code = 759) INR (BEAKER) (test 3.30 See_Comment [Automat ed message] code = 370) The system [employer] generated this result transmitted ref erence range: <=5.90. The reference range was not used to int erpret this result as normal/abnormal . RECOMMENDED COUMADIN/WARFARIN INR THERAPY RANGESSTANDARD DOSE: 2.0 - 3.0 Includes: PROPHYLAXIS forvenous thrombosis, systemic embolization; TREATMENT for venous thrombosis and/or pulmonary embolus.HIGH RISK: Target INR is 2.5-3.5 for patients with mechanical heart valves.BASIC METABOLIC [id number] 08:17:53 Test Item Value Reference Range Interpretation [...] S NOT APPLICABLE FOR DIALYSIS PATIEN TS. [place] Worker ID - ADMINPROTHROMBIN TIME/[id number] 06:12:32 Test Item Value Reference Range Interpretation Comments PROTIME (BEAKER) 35.0 seconds 11.9-14.2 H (test code = 759) INR (BEAKER) (test 3.52 See_Comment [Automat ed message] code = 370) The system [employer] generated this result transmitted ref erence range: [...] (BEAKER) (test code = 2801) HEMOGLOBIN AND [id number] 08:45:35 Test Item Value Reference Range Interpretation Comments HEMOGLOBIN (BEAKER) (test code = 6.7 GM/DL 13.7-17.5 L 410) HEMATOCRIT (BEAKER) (test code = 21.5 % 40.1-51.0 L 411) B[employer] [place] Worker ID - [id number] METABOLIC [id number] 07:38:51 Test Item Value Reference Range Interpretation [...] S NOT APPLICABLE FOR DIALYSIS PATIEN TS. [employer] [place] Worker ID - GEMINI FPROTHROMBIN TIME/[id number] 07:17:17 Test Item Value Reference Range Interpretation Comments PROTIME (BEAKER) 38.7 seconds 11.9-14.2 H (test code = 759) INR (BEAKER) (test 4.00 See_Comment [Automat ed message] code = 370) The system [employer] generated this result transmitted ref erence range: [...] PERCENT (BEAKER) (test code = 2801) PROTHROMBIN TIME/[id number] 06:57:22 Test Item Value Reference Range Interpretation Comments PROTIME (BEAKER) 39.4 seconds 11.9-14.2 H (test code = 759) INR (BEAKER) (test 4.08 See_Comment [Automat ed message] code = 370) The system [employer] generated this result transmitted ref erence range: <=5.90. The reference range was not used to int erpret this result as normal/abnormal . RECOMMENDED COUMADIN/WARFARIN INR THERAPY RANGESSTANDARD DOSE: 2.0 - 3.0 Includes: PROPHYLAXIS forvenous thrombosis, systemic embolization; TREATMENT for venous thrombosis and/or pulmonary embolus.HIGH RISK: Target INR is 2.5-3.5 for patients with mechanical heart valves.PROTHROMBIN TIME/[id number] 05:52:25 Test Item Value Reference Range Interpretation Comments PROTIME (BEAKER) 36.7 seconds 11.9-14.2 H (test code = 759) INR (BEAKER) (test 3.74 See_Comment [Automat ed message] code = 370) The system [employer] generated this result transmitted ref erence range: <=5.90. The reference range was not used to int erpret this result as normal/abnormal . RECOMMENDED COUMADIN/WARFARIN INR THERAPY RANGESSTANDARD DOSE: 2.0 - 3.0 Includes: PROPHYLAXIS forvenous thrombosis, systemic embolization; TREATMENT for venous thrombosis and/or pulmonary embolus.HIGH RISK: Target INR is 2.5-3.5 for patients with mechanical heart valves.BASIC METABOLIC [id number] 05:13:18 Test Item Value Reference Range Interpretation [...] S NOT APPLICABLE FOR DIALYSIS PATIEN TS. [place] Worker ID - VALDEZ MCBC W/PLT COUNT & AUTO [id number] 05:00:45 Test Item Value Reference Range Interpretation [...] PERCENT (BEAKER) (test code = 2801) PROTHROMBIN TIME/[id number] 04:50:41 Test Item Value Reference Range Interpretation Comments PROTIME (BEAKER) 32.7 seconds 11.9-14.2 H (test code = 759) INR (BEAKER) (test 3.23 See_Comment [Automat ed message] code = 370) The system [employer] generated this result transmitted ref erence range: <=5.90. The reference range was not used to int erpret this result as normal/abnormal . RECOMMENDED COUMADIN/WARFARIN INR THERAPY RANGESSTANDARD DOSE: 2.0 - 3.0 Includes: PROPHYLAXIS forvenous thrombosis, systemic embolization; TREATMENT for venous thrombosis and/or pulmonary embolus.HIGH RISK: Target INR is 2.5-3.5 for patients with mechanical heart valves.HEPATITIS B [id number] 07:32:34 Test Item Value Reference Range Interpretation Comments HEPATITIS B CORE TOTAL ANTIBODY Nonreactive Nonreactive (BEAKER) (test code = 497) HEPATITIS B SURFACE ANTIBODY 2822.9 mIU/mL <8.0 H (BEAKER) (test code = 647) HEPATITIS B SURFACE ANTIGEN (2) Nonreactive Nonreactive (BEAKER) (test code = 2585) [place] [place] Worker ID - EMERSONOperator ID - EMERSONBASIC METABOLIC [id number] 06:32:52 Test Item Value Reference Range Interpretation [...] S NOT APPLICABLE FOR DIALYSIS PATIEN TS. [place] Worker ID - JRLPROTHROMBIN TIME/[id number] 05:58:24 Test Item Value Reference Range Interpretation Comments PROTIME (BEAKER) 32.5 seconds 11.9-14.2 H (test code = 759) INR (BEAKER) (test 3.20 See_Comment [Automat ed message] code = 370) The system [employer] generated this result transmitted ref erence range: [...] (BEAKER) (test code = 2801) BASIC METABOLIC [id number] 08:24:48 Test Item Value Reference Range Interpretation [...] S NOT APPLICABLE FOR DIALYSIS PATIEN TS. [place] Worker ID - PIAYA LPROTHROMBIN TIME/[id number] 07:16:29 Test Item Value Reference Range Interpretation Comments PROTIME (BEAKER) 28.4 seconds 11.9-14.2 H (test code = 759) INR (BEAKER) (test 2.70 See_Comment [Automat ed message] code = 370) The system [employer] generated this result transmitted ref erence range: [...] code = 2801) SARS-COV2/RT-PCR ([facility])2021-03-01 11:26:13 Test Item Value Reference Range Interpretation Comments SARS-COV2/RT-PCR (test Negative Not Detected, Negative, code = 7251846) See external report for linked test SARS-COV-2 PERFORMING LAB [facility] (test code = 8841261) Negative result for this test determines that [...] 564(g) of the Act.Fact Sheet for Healthcare Providers:https://www.[employer]/sites/default/files/product/documents/Fact_Shee l_ZF_Eklgbbpza_Jbal_DOBV-PjM-9.pdfFact Sheet for Healthcare Patients:https://www.[employer]/sites/default/files/product/ documents/Xldj_Ueqyy_Cshnhmkb_Flzz_VOCR-DwG-9.pdfPerforming Laboratory:[facility].[place], [place] [address]HFPEWIKVUBJ TIME/INR 2021-03-01 04:16:38 Test Item Value Reference Range Interpretation Comments PROTIME (BEAKER) 25.5 seconds 11.9-14.2 H (test code = 759) INR (BEAKER) (test 2.35 See_Comment [Automat ed message] code = 370) The system [employer] generated this result transmitted ref erence range: [...] PERCENT (BEAKER) (test code = 2801) PROTHROMBIN TIME/[id number] 04:21:23 Test Item Value Reference Range Interpretation Comments PROTIME (BEAKER) 23.9 seconds 11.9-14.2 H (test code = 759) INR (BEAKER) (test 2.17 See_Comment [Automat ed message] code = 370) The system [employer] generated this result transmitted ref erence range: [...] (BEAKER) (test code = 2801) BASIC METABOLIC [id number] 05:21:01 Test Item Value Reference Range Interpretation [...] S NOT APPLICABLE FOR DIALYSIS PATIEN TS. B[place] Worker ID - KT [facility] (HEMOGRAM ONLY)2021-02-27 05:14:08 Test Item Value Reference [...] 0-100 H (BEAKER) (test code = 700) [place] Worker ID - ADMINPROTHROMBIN TIME/[id number] 04:56:59 Test Item Value Reference Range Interpretation Comments PROTIME (BEAKER) 22.7 seconds 11.9-14.2 H (test code = 759) INR (BEAKER) (test 2.03 See_Comment [Automat ed message] code = 370) The system [employer] generated this result transmitted ref erence range: <=5.90. The reference range was not used to int erpret this result as normal/abnormal . RECOMMENDED COUMADIN/WARFARIN INR THERAPY RANGESSTANDARD DOSE: 2.0 - 3.0 Includes: PROPHYLAXIS forvenous thrombosis, systemic embolization; TREATMENT for venous thrombosis and/or pulmonary embolus.HIGH RISK: Target INR is 2.5-3.5 for patients with mechanical heart valves.PROTHROMBIN TIME/[id number] 15:31:42 Test Item Value Reference Range Interpretation Comments PROTIME (BEAKER) 23.5 seconds 11.9-14.2 H (test code = 759) INR (BEAKER) (test 2.12 See_Comment [Automat ed message] code = 370) The system [employer] generated this result transmitted ref erence range: <=5.90. The reference range was not used to int erpret this result as normal/abnormal . RECOMMENDED COUMADIN/WARFARIN INR THERAPY RANGESSTANDARD DOSE: 2.0 - 3.0 Includes: PROPHYLAXIS forvenous thrombosis, systemic embolization; TREATMENT for venous thrombosis and/or pulmonary embolus.HIGH RISK: Target INR is 2.5-3.5 for patients with mechanical heart valves.BLOOD GAS, [id number] 05:16:22 Test Item Value Reference Range Interpretation [...] (test code = 1819) 50.0 COMPREHENSIVE METABOLIC [id number] 23:42:13 Test Item Value Reference Range Interpretation [...] S NOT APPLICABLE FOR DIALYSIS PATIEN TS. B[place] Worker ID - DBHIGH SENSITIVITY TROPONIN [id number] 23:38:42 Test Item Value Reference Range Interpretation Comments HIGH SENSITIVITY 128 pg/ml See_Comment H [Automated message] TROPONIN I (test code The stem which = [id number]) generated this result transmitted ref erence range: <=35. Th e reference range was not used to int erpret this result as normal/abnormal . B[place] Worker ID - DBThe CHIEF SAFETY OFFICER STAT High Sensitivity Troponin-I results should be used in conjunctionwith other diagnostic information such as ECG, clinical observations and information, and patient symptoms to aid in the diagnosis of DC.LACTIC ACID, [id number] 23:28:44 Test Item Value Reference Range Interpretation Comments LACTATE BLOOD VENOUS 0.82 mmol/L 0.50-2.20 Specime n slightly (2) (BEAKER) (test hemolyzed code = 2872) B[place] Worker ID - DBCBC W/PLT COUNT & AUTO [id number] 23:13:06 Test Item Value Reference Range Interpretation [...] = 2801) RAD, CHEST, 1 VIEW, NON [id number] 23:11:00Reason for exam:- >hypoxiaShould this be performed at the bedside?->Yes [facility] 1975 Sex: MFINAL [...] [facility] Verified Date/Time: 02/25/2021 23:11:55 [id number] 22:36:53 Test Item Value Reference Range Interpretation Comments POC-GLUCOSE (BEAKER) 96 mg/dL 70-110 : TESTE D AT [facility] [address] (test code = 1855) [place], [address]: B[place] Worker/Techni won ID = [id number] for JESUS MANUEL SAENZ [id number] 22:36:52 Test Item Value Reference Range Interpretation Comments POC-HEMATOCRIT 25 % 40-50 L : [place] Worker/Te chnician ID = (BEAKER) (test code = 056207 for JESUS MANUEL ZAYAS 1857) [id number] 22:36:51 Test Item Value Reference Range Interpretation Comments POC-HEMOGLOBIN 8.5 g/dL 13.0-16.8 L : TESTED AT [facility] 67[address] (BEAKER) (test code = NORM [place] [facility], 185) [address]: B[place] Worker/Techni won ID = [id number] for RUMB AOA, JESUS MANUEL [id number] 22:36:50 Test Item Value Reference Range Interpretation Comments POC-SODIUM (BEAKER) 135 meq/L 135-148 : TESTED AT [facility] [address] (test code = 1542) [place] [facility], [address]: Brick [place]n Worker/Techni won ID = [id number] for RUMB AOA, JESUS MANUEL [id number] 22:36:50 Test Item Value Reference Range Interpretation Comments POC-POTASSIUM 4.2 meq/L 3.6-5.5 : TESTED AT [facility] 67 (BEAKER) (test code [facility], = 1540) [address]: B[place] Worker/Techni won ID = [id number] for RUMB AOA, JESUS MANUEL POCT-BLOOD GASES, [id number] 22:36:49 Test Item Value Reference Range Interpretation [...] EXCESS, 1.0 meq/L -2.0-3.0 : TESTED AT [facility] [address] ARTERIAL-POC [facility], (BEAKER) (test code [address]: = 1841) B[place] Worker/Techni won ID = [id number] for JESUS MANUEL SAENZ CBC W/PLT COUNT & AUTO [id number] 07:09:54 Test Item Value Reference Range Interpretation [...] (BEAKER) (test code = 2801) BASIC METABOLIC [id number] 06:39:44 Test Item Value Reference Range Interpretation [...] S NOT APPLICABLE FOR DIALYSIS PATIEN TS. B[place] Worker ID - KT GCALCIUM, [id number] 06:23:23 Test Item Value Reference Range Interpretation Comments CALCIUM IONIZED (BEAKER) (test 1.14 mmol/L 1.12-1.27 code = 698) PH, BLOOD (BEAKER) (test code = 7.40 1810) [id number] 06:05:48 Test Item Value Reference Range Interpretation Comments PHOSPHORUS (BEAKER) (test code = 4.7 mg/dL 2.3-4.7 604) B[place] Worker ID - KT [id number] 06:05:46 Test Item Value Reference Range Interpretation Comments MAGNESIUM (BEAKER) (test code = 2.1 mg/dL 1.6-2.6 627) B[place] Worker ID - KT GPROTHROMBIN TIME/[id number] 05:51:22 Test Item Value Reference Range Interpretation Comments PROTIME (BEAKER) 21.2 seconds 11.9-14.2 H (test code = 759) INR (BEAKER) (test 1.86 See_Comment [Automat ed message] code = 370) The system [employer] generated this result transmitted ref erence range: <=5.90. The reference range was not used to int erpret this result as normal/abnormal . RECOMMENDED COUMADIN/WARFARIN INR THERAPY RANGESSTANDARD DOSE: 2.0 - 3.0 Includes: PROPHYLAXIS forvenous thrombosis, systemic embolization; TREATMENT for venous thrombosis and/or pulmonary embolus.HIGH RISK: Target INR is 2.5-3.5 for patients with mechanical heart valves.BASIC METABOLIC [id number] 04:44:34 Test Item Value Reference Range Interpretation [...] S NOT APPLICABLE FOR DIALYSIS PATIEN TS. B[place] Worker ID - KT [id number] 04:43:05 Test Item Value Reference Range Interpretation Comments PHOSPHORUS (BEAKER) (test code = 6.2 mg/dL 2.3-4.7 H 604) [place] Worker ID - KT [id number] 04:43:03 Test Item Value Reference Range Interpretation Comments MAGNESIUM (BEAKER) (test code = 2.2 mg/dL 1.6-2.6 627) B[place] Worker ID - KT GPROTHROMBIN TIME/[id number] 04:31:37 Test Item Value Reference Range Interpretation Comments PROTIME (BEAKER) 24.3 seconds 11.9-14.2 H (test code = 759) INR (BEAKER) (test 2.21 See_Comment [Automat ed message] code = 370) The system [employer] generated this result transmitted ref erence range: [...] PERCENT (BEAKER) (test code = 2801) CALCIUM, [id number] 04:16:25 Test Item Value Reference Range Interpretation Comments CALCIUM IONIZED (BEAKER) (test 1.14 mmol/L 1.12-1.27 code = 698) PH, BLOOD (BEAKER) (test code = 7.43 1810) BASIC METABOLIC [id number] 06:34:09 Test Item Value Reference Range Interpretation [...] S NOT APPLICABLE FOR DIALYSIS PATIEN TS. [place] Worker ID - KT GCBC W/PLT COUNT & AUTO [id number] 06:34:05 Test Item Value Reference Range Interpretation [...] 0-1 PERCENT (BEAKER) (test code = 2801) [id number] 06:25:36 Test Item Value Reference Range Interpretation Comments MAGNESIUM (BEAKER) (test code = 2.0 mg/dL 1.6-2.6 627) B[place] Worker ID - KT [id number] 06:25:36 Test Item Value Reference Range Interpretation Comments PHOSPHORUS (BEAKER) (test code = 5.7 mg/dL 2.3-4.7 H 604) B[place] Worker ID - KT GCALCIUM, [id number] 06:03:49 Test Item Value Reference Range Interpretation Comments CALCIUM IONIZED (BEAKER) (test 1.16 mmol/L 1.12-1.27 code = 698) PH, BLOOD (BEAKER) (test code = 7.37 1810) PROTHROMBIN [id number] 06:02:59 Test Item Value Reference Range Interpretation Comments PROTIME (BEAKER) 29.9 seconds 11.9-14.2 H (test code = 759) INR (BEAKER) (test 2.89 See_Comment [Automat ed message] code = 370) The system [employer] generated this result transmitted ref erence range: <=5.90. The reference range was not used to int erpret this result as normal/abnormal . RECOMMENDED COUMADIN/WARFARIN INR THERAPY RANGESSTANDARD DOSE: 2.0 - 3.0 Includes: PROPHYLAXIS forvenous thrombosis, systemic embolization; TREATMENT for venous thrombosis and/or pulmonary embolus.HIGH RISK: Target INR is 2.5-3.5 for patients with mechanical heart valves.HEPATITIS PANEL, [id number] 13:18:27 Test Item Value Reference Range Interpretation Comments HEPATITIS A IGM ANTIBODY (BEAKER) Nonreactive Nonreactive (test code = 498) HEPATITIS B CORE IGM ANTIBODY Nonreactive Nonreactive (BEAKER) (test code = 645) HEPATITIS C ANTIBODY (BEAKER) Nonreactive Nonreactive (test code = 367) HEPATITIS B SURFACE ANTIGEN (2) Nonreactive Nonreactive (BEAKER) (test code = 2585) [place] Worker ID - VALDEZ MBASIC METABOLIC [id number] 06:25:00 Test Item Value Reference Range Interpretation [...] S NOT APPLICABLE FOR DIALYSIS PATIEN TS. B[place] Worker ID - VALDEZ [id number] 06:02:13 Test Item Value Reference Range Interpretation Comments PHOSPHORUS (BEAKER) 7.5 mg/dL 2.3-4.7 H Specimen slightly (test code = 604) hemolyzed [place] Worker ID - VALDEZ [id number] 06:02:12 Test Item Value Reference Range Interpretation Comments MAGNESIUM (BEAKER) 2.2 mg/dL 1.6-2.6 Specimen slightly (test code = 627) hemolyzed [place] Worker ID - VALDEZ MCALCIUM, [id number] 05:35:58 Test Item Value Reference Range Interpretation Comments CALCIUM IONIZED (BEAKER) (test 1.12 mmol/L 1.12-1.27 code = 698) PH, BLOOD (BEAKER) (test code = 7.35 1810) CBC W/PLT COUNT & AUTO [id number] 05:09:10 Test Item Value Reference Range Interpretation [...] PERCENT (BEAKER) (test code = 2801) PROTHROMBIN [id number] 05:08:20 Test Item Value Reference Range Interpretation Comments PROTIME (BEAKER) 32.7 seconds 11.9-14.2 H (test code = 759) INR (BEAKER) (test 3.22 See_Comment [Automat ed message] code = 370) The system [employer] generated this result transmitted ref erence range: <=5.90. The reference range was not used to int erpret this result as normal/abnormal . RECOMMENDED COUMADIN/WARFARIN INR THERAPY RANGESSTANDARD DOSE: 2.0 - 3.0 Includes: PROPHYLAXIS forvenous thrombosis, systemic embolization; TREATMENT for venous thrombosis and/or pulmonary embolus.HIGH RISK: Target INR is 2.5-3.5 for patients with mechanical heart valves.PROTHROMBIN TIME/[id number] 05:04:40 Test Item Value Reference Range Interpretation Comments PROTIME (BEAKER) 32.1 seconds 11.9-14.2 H (test code = 759) INR (BEAKER) (test 3.15 See_Comment [Automat ed message] code = 370) The system [employer] generated this result transmitted ref erence range: [...] Comments SARS-COV2/RT-PCR (test code = Negative Negative [id number]) Negative result for this test determines that [...] Healthcare Providers:https://www.molecular.mcdonald/jermaine/RT SARS-CoV-2 HCP Fact Sheet 51- 415731.pdfFact Sheet for Healthcare Patients:https://www.molecular.mcdonald/jermaine/RT SARS-CoV-2 Patient Fact Sheet EN 51-706699Z6.pdfBASI METABOLIC [id number] 06:13:04 Test Item Value Reference Range Interpretation [...] S NOT APPLICABLE FOR DIALYSIS PATIEN TS. B[place] Worker ID - [id number] 05:59:30 Test Item Value Reference Range Interpretation Comments PHOSPHORUS (BEAKER) (test code = 5.6 mg/dL 2.3-4.7 H 604) B[place] Worker ID - [id number] 05:59:28 Test Item Value Reference Range Interpretation Comments MAGNESIUM (BEAKER) (test code = 2.0 mg/dL 1.6-2.6 627) B[place] Worker ID - BSCBC W/PLT COUNT & AUTO [id number] 05:39:00 Test Item Value Reference Range Interpretation [...] PERCENT (BEAKER) (test code = 2801) PROTHROMBIN TIME/[id number] 05:38:20 Test Item Value Reference Range Interpretation Comments PROTIME (BEAKER) 37.7 seconds 11.9-14.2 H (test code = 759) INR (BEAKER) (test 3.86 See_Comment [Automat ed message] code = 370) The system [employer] generated this result transmitted ref erence range: <=5.90. The reference range was not used to int erpret this result as normal/abnormal . RECOMMENDED COUMADIN/WARFARIN INR THERAPY RANGESSTANDARD DOSE: 2.0 - 3.0 Includes: PROPHYLAXIS forvenous thrombosis, systemic embolization; TREATMENT for venous thrombosis and/or pulmonary embolus.HIGH RISK: Target INR is 2.5-3.5 for patients with mechanical heart valves.PROTHROMBIN TIME/[id number] 05:38:15 Test Item Value Reference Range Interpretation Comments PROTIME (BEAKER) 38.1 seconds 11.9-14.2 H (test code = 759) INR (BEAKER) (test 3.92 See_Comment [Automat ed message] code = 370) The system [employer] generated this result transmitted ref erence range: <=5.90. The reference range was not used to int erpret this result as normal/abnormal . RECOMMENDED COUMADIN/WARFARIN INR THERAPY RANGESSTANDARD DOSE: 2.0 - 3.0 Includes: PROPHYLAXIS forvenous thrombosis, systemic embolization; TREATMENT for venous thrombosis and/or pulmonary embolus.HIGH RISK: Target INR is 2.5-3.5 for patients with mechanical heart valves.CALCIUM, [id number] 05:28:08 Test Item Value Reference Range Interpretation Comments CALCIUM IONIZED (BEAKER) (test 1.12 mmol/L 1.12-1.27 code = 698) PH, BLOOD (BEAKER) (test code = 7.41 1810) PERIPHERAL BLOOD SMEAR - PATHOLOGIST [id number] 14:07:25 Test Item Value Reference Range Interpretation Comments PERIPHERAL SMR Normocytic normochromic REVIEW (BEAKER) anemia with mild (test code = 3879) anisopoikilocytosis and polychromasia. Rare schistocytes (0.6 per HPF). WBCs include predominantly mature granulocytes. Platelets are decreased, no clumping/satellitism seen. [id number] Anita Zamora, 112 (BEAKER) (test M.D code = 2849) RETICULOCYTE [id number] 11:37:09 Test Item Value Reference Range Interpretation Comments RETICULOCYTE COUNT PCT (BEAKER) (test 3.6 % 0.5-1.8 H code = 575) Brick [place] Worker ID - 6000CALCIUM, [id number] 08:12:42 Test Item Value Reference Range Interpretation Comments CALCIUM IONIZED (BEAKER) (test 1.12 mmol/L 1.12-1.27 code = 698) PH, BLOOD (BEAKER) (test code = 7.41 1810) CBC W/PLT COUNT & AUTO [id number] 07:49:07 Test Item Value Reference Range Interpretation [...] (BEAKER) (test code = 2801) BASIC METABOLIC [id number] 07:19:01 Test Item Value Reference Range Interpretation [...] S NOT APPLICABLE FOR DIALYSIS PATIEN TS. [place] Worker ID - VALDEZ [id number] 07:18:50 Test Item Value Reference Range Interpretation Comments PHOSPHORUS (BEAKER) 5.4 mg/dL 2.3-4.7 H Specimen slightly (test code = 604) hemolyzed [place] Worker ID - VALDEZ [id number] 07:18:49 Test Item Value Reference Range Interpretation Comments MAGNESIUM (BEAKER) 2.0 mg/dL 1.6-2.6 Specimen slightly (test code = 627) hemolyzed [place] Worker ID - VALDEZ MPROTHROMBIN TIME/[id number] 06:39:12 Test Item Value Reference Range Interpretation Comments PROTIME (BEAKER) 33.7 seconds 11.9-14.2 H (test code = 759) INR (BEAKER) (test 3.35 See_Comment [Automat ed message] code = 370) The system [employer] generated this result transmitted ref erence range: <=5.90. The reference range was not used to int erpret this result as normal/abnormal . RECOMMENDED COUMADIN/WARFARIN INR THERAPY RANGESSTANDARD DOSE: 2.0 - 3.0 Includes: PROPHYLAXIS forvenous thrombosis, systemic embolization; TREATMENT for venous thrombosis and/or pulmonary embolus.HIGH RISK: Target INR is 2.5-3.5 for patients with mechanical heart valves.RAD, CHEST, 1 VIEW, NON [id number] 06:01:00Reason for exam:->intubatedShould this be performed at the bedside?->[facility] : 1975 Sex: [...] 02/19/2021 06:01:44 , CHEST, 1 VIEW, NON [id number] 07:41:00Reason for exam:- >intubatedShould this be performed at the bedside?->Yes [facility] 1975 Sex: [...] 0-100 H (BEAKER) (test code = 700) [place] Worker ID - DBOperator ID - DBBASIC METABOLIC [id number] 06:26:54 Test Item Value Reference Range Interpretation [...] S NOT APPLICABLE FOR DIALYSIS PATIEN TS. [place] [place] Worker ID - VALDEZ MPROTHROMBIN TIME/[id number] 06:17:35 Test Item Value Reference Range Interpretation Comments PROTIME (BEAKER) 29.3 seconds 11.9-14.2 H (test code = 759) INR (BEAKER) (test 2.80 See_Comment [Automat ed message] code = 370) The system [employer] generated this result transmitted ref erence range: [...] 0-1 PERCENT (BEAKER) (test code = 2801) [id number] 06:10:34 Test Item Value Reference Range Interpretation Comments PHOSPHORUS (BEAKER) (test code = 4.2 mg/dL 2.3-4.7 604) B[employer] [place] Worker ID - VALDEZ [id number] 06:10:33 Test Item Value Reference Range Interpretation Comments MAGNESIUM (BEAKER) (test code = 1.9 mg/dL 1.6-2.6 627) B[employer] [place] Worker ID - VALDEZ MBLOOD GAS, [id number] 05:54:10 Test Item Value Reference Range Interpretation [...] (BEAKER) (test code = 1819) 21.0 CALCIUM, [id number] 05:53:59 Test Item Value Reference Range Interpretation Comments CALCIUM IONIZED (BEAKER) (test 1.14 mmol/L 1.12-1.27 code = 698) PH, BLOOD (BEAKER) (test code = 7.40 1810) VITAMIN B12 AND [id number] 10:29:00 Test Item Value Reference Range Interpretation Comments VITAMIN B12 (BEAKER) 816 pg/mL 213-816 (test code = 774) FOLATE (BEAKER) 8.40 ng/mL See_Comment [Automated message] (test code = 362) The system which generated this result transmitted ref erence range: >=7.00. The reference range was not used to interpr et this result as normal/abnormal . B[place] Worker ID - JESUS CBASIC METABOLIC [id number] 08:43:00 Test Item Value Reference Range Interpretation [...] S NOT APPLICABLE FOR DIALYSIS PATIEN TS. B[employer] [place] Worker ID - SAROJAYA LRAD, CHEST, 1 VIEW, NON [id number] 08:32:00Reason for exam:->intubatedShould this be performed at [...] 08:32:52 Reading Location: [facility] [address] Radiology Reading Room MAGNESIUM 2021-02-17 07:55:00 Test Item Value Reference Range Interpretation Comments MAGNESIUM (BEAKER) 2.0 mg/dL 1.6-2.6 Specimen slightly (test code = 627) hemolyzed B[place] Worker ID - PIAYA [id number] 07:55:00 Test Item Value Reference Range Interpretation Comments PHOSPHORUS (BEAKER) 4.7 mg/dL 2.3-4.7 Specimen slightly (test code = 604) hemolyzed [place] Worker ID - PIAYA LPROTHROMBIN TIME/[id number] 06:54:00 Test Item Value Reference Range Interpretation Comments PROTIME (BEAKER) 29.4 seconds 11.9-14.2 H (test code = 759) INR (BEAKER) (test 2.82 See_Comment [Automat ed message] code = 370) The system [employer] generated this result transmitted ref erence range: <=5.90. The reference range was not used to int erpret this result as normal/abnormal . RECOMMENDED COUMADIN/WARFARIN INR THERAPY RANGESSTANDARD DOSE: 2.0 - 3.0 Includes: PROPHYLAXIS forvenous thrombosis, systemic embolization; TREATMENT for venous thrombosis and/or pulmonary embolus.HIGH RISK: Target INR is 2.5-3.5 for patients with mechanical heart valves.CALCIUM, [id number] 06:54:00 Test Item Value Reference Range Interpretation Comments CALCIUM IONIZED (BEAKER) (test 1.16 mmol/L 1.12-1.27 code = 698) PH, BLOOD (BEAKER) (test code = 7.39 1810) CBC W/PLT COUNT & AUTO [id number] 06:53:00 Test Item Value Reference Range Interpretation [...] PERCENT (BEAKER) (test code = 2801) POCT-GLUCOSE [id number] 21:32:00 Test Item Value Reference Range Interpretation Comments POC-GLUCOSE METER 103 mg/dL 70-110 : TESTED A T [facility] 6720 (BEAKER) (test code = [employer] [facility], 1538) [id number]: [place] Worker/Techni won ID = [id number] for MARÍA AMAYA POCT-GLUCOSE [id number] 16:27:00 Test Item Value Reference Range Interpretation Comments POC-GLUCOSE METER 101 mg/dL 70-110 : TESTED A T [facility] 6720 (BEAKER) (test code = [employer] [facility], 1538) [id number]: [place] Worker/Techni won ID = [id number] for Delmer Janelle Daly RAD, ANKLE, MIN 3 VIEWS, [id number] 13:26:00Reason for exam:->Ankle pain [facility] : 1975 Sex: MFINAL REPORT CLINICAL HISTORY: Ankle pain TECHNIQUE: Three views of t he left ankle COMPARISON: None IMPRESSION: There is diffuse soft tissue swelling throughout the ankle with an ankle joint effusion. There is no evidence for fracture or dislocation. There is a dorsal calcaneal spur. Signed: Melodie Zarate MDReport Verified Date/Time: 02/16/2021 13:26:52 Reading Location: [facility] Radiology Reading Room POCT-GLUCOSE [id number] 12:24:00 Test Item Value Reference Range Interpretation Comments POC-GLUCOSE METER 97 mg/dL 70-110 : TESTED A T [facility] 6720 (BEAKER) (test code = NORM [facility] [place], 1538) [id number]: [place] Worker/Techni won ID = [id number] for Janelle Powers BASIC METABOLIC [id number] 12:00:00 Test Item Value Reference Range Interpretation [...] S NOT APPLICABLE FOR DIALYSIS PATIEN TS. [place] Worker ID - GEMINI [id number] 11:52:00 Test Item Value Reference Range Interpretation Comments MAGNESIUM (BEAKER) (test code = 1.8 mg/dL 1.6-2.6 627) [place] Worker ID - GEMINI [id number] 11:52:00 Test Item Value Reference Range Interpretation Comments PHOSPHORUS (BEAKER) (test code = 4.0 mg/dL 2.3-4.7 604) [place] [place] Worker ID - GEMINI BRUNO, CHEST, 1 VIEW, NON [id number] 10:51:00Reason for exam:->Pulmonary vascular congestion; ESRD on HDShould this be performed at the bedside?->Yes [facility] : 1975 [...] Zarate Verified Date/Time: 02/16/2021 10:51:39 Reading Location: [facility] Radiology Reading Room POCT-GLUCOSE [id number] 07:52:00 Test Item Value Reference Range Interpretation Comments POC-GLUCOSE METER 100 mg/dL 70-110 : TESTED A T [facility] 6720 (BEAKER) (test code = RAYMONJACQUELINE Tenorio [facility], 1538) [address]: B[employer] [place] Worker/Techni won ID = [id number] for Delmer Janelle Daly CALCIUM, [id number] 06:46:00 Test Item Value Reference Range Interpretation Comments CALCIUM IONIZED (BEAKER) (test 1.14 mmol/L 1.12-1.27 code = 698) PH, BLOOD (BEAKER) (test code = 7.43 1810) PROTHROMBIN [id number] 06:38:00 Test Item Value Reference Range Interpretation Comments PROTIME (BEAKER) 29.2 seconds 11.9-14.2 H (test code = 759) INR (BEAKER) (test 2.80 See_Comment [Automat ed message] code = 370) The system [employer] generated this result transmitted ref erence range: [...] PERCENT (BEAKER) (test code = 2801) PROTHROMBIN TIME/[id number] 23:36:00 Test Item Value Reference Range Interpretation Comments PROTIME (BEAKER) 28.8 seconds 11.9-14.2 H (test code = 759) INR (BEAKER) (test 2.74 See_Comment [Automat ed message] code = 370) The system [employer] generated this result transmitted ref erence range: <=5.90. The reference range was not used to int erpret this result as normal/abnormal . RECOMMENDED COUMADIN/WARFARIN INR THERAPY RANGESSTANDARD DOSE: 2.0 - 3.0 Includes: PROPHYLAXIS forvenous thrombosis, systemic embolization; TREATMENT for venous thrombosis and/or pulmonary embolus.HIGH RISK: Target INR is 2.5-3.5 for patients with mechanical heart valves.HEMOGLOBIN AND [id number] 23:26:00 Test Item Value Reference Range Interpretation Comments HEMOGLOBIN (BEAKER) (test code = 6.9 GM/DL 13.7-17.5 L 410) HEMATOCRIT (BEAKER) (test code = 21.4 % 40.1-51.0 L 411) B[employer] [place] Worker ID - 6000POCT-GLUCOSE [id number] 12:19:00 Test Item Value Reference Range Interpretation Comments POC-GLUCOSE METER 123 mg/dL 70-110 H : TESTED A T [facility] 6720 (BEAKER) (test code [facility], = 1538) [address]: B[employer] [place] Worker/Techni won ID = [id number] for Maikel robledo (contract), Syt damien RAD, CHEST, 1 VIEW, NON [id number] 07:27:00Reason for exam:->Pulmonary vascular congestion; ESRD on HDShould this be performed at the bedside?->Yes [facility] 1975 Sex: MFINAL REPORT CLINICAL HISTORY: Pulmonary vascular congestion; ESRD on HD TECHNIQUE: 1 view of the chest. COMPARISON: 02/14/2021 IMPRESSION: The right central line is unchanged. Diffuse bilateral airspace opacities appear slightly increased. Small pleural effusions cannot be excluded. Cardiomegaly is again seen poststernotomy with valvular repair. Signed: Melodie Zarate MDReport Verified Date/Time: 02/15/2021 07:27:43 Reading Location: [facility] Radiology Reading Room BASIC METABOLIC [id number] 06:32:00 Test Item Value Reference Range Interpretation [...] S NOT APPLICABLE FOR DIALYSIS PATIEN TS. [employer] [place] Worker ID - LINA [id number] 06:31:00 Test Item Value Reference Range Interpretation Comments MAGNESIUM (BEAKER) (test code = 1.7 mg/dL 1.6-2.6 627) [employer] [place] Worker ID - LINA [id number] 06:31:00 Test Item Value Reference Range Interpretation Comments PHOSPHORUS (BEAKER) (test code = 3.6 mg/dL 2.3-4.7 604) [employer] [place] Worker ID - LINA LCBC W/PLT COUNT & AUTO [id number] 06:22:00 Test Item Value Reference Range Interpretation [...] PERCENT (BEAKER) (test code = 2801) CALCIUM, [id number] 06:13:00 Test Item Value Reference Range Interpretation Comments CALCIUM IONIZED (BEAKER) (test 1.18 mmol/L 1.12-1.27 code = 698) PH, BLOOD (BEAKER) (test code = 7.41 1810) SARS-COV2/RT-PCR ([facility])2021-02-15 02:44:00 Test Item Value Reference Range Interpretation Comments SARS-COV2/RT-PCR (test code = Negative Negative 2002485) Negative result for this test determines that [...] the Mcdonald SARS-CoV-2 assay.Fact Sheet for Healthcare Providers:https://www.[employer].mcdonald/jermaine/RT SARS-CoV-2 HCP Fact Sheet 51- 304365.pdfFact Sheet for Healthcare Patients:https://www.[employer].mcdonald/jermaine/RT SARS-CoV-2 Patient Fact Sheet EN 51-445417T6.pdfBASIC METABOLIC [id number] 23:48:00 Test Item Value Reference Range Interpretation [...] S NOT APPLICABLE FOR DIALYSIS PATIEN TS. [employer] [place] Worker ID - LINA [id number] 23:39:00 Test Item Value Reference Range Interpretation Comments MAGNESIUM (BEAKER) 2.0 mg/dL 1.6-2.6 Specimen slightly (test code = 627) hemolyzed [place] [place] Worker ID - LINA [id number] 23:39:00 Test Item Value Reference Range Interpretation Comments PHOSPHORUS (BEAKER) 6.0 mg/dL 2.3-4.7 H Specimen slightly (test code = 604) hemolyzed [place] [place] Worker ID - LINA LPOCT-GLUCOSE [id number] 18:16:00 Test Item Value Reference Range Interpretation Comments POC-GLUCOSE METER 130 mg/dL 70-110 H : TESTED A T [facility] 6720 (BEAKER) (test code = NORM Tenorio [facility], 1538) [address]: Brick [place] Worker/Techni won ID = [id number] for Da vis, Paige RAD, CHEST, 1 VIEW, NON [id number] 08:33:00Reason for exam:->Pulmonary vascular congestion; ESRD on HDShould this be performed at the bedside?->Yes [facility] 1975 Sex: [...] Castro Verified Date/Time: 02/14/2021 08:33:43 Reading Location: [facility] Diagnostic Imaging Reading Room - [place] [address] HEPATITIS B SURFACE [id number] 07:31:00 Test Item Value Reference Range Interpretation Comments HEPATITIS B SURFACE ANTIGEN (2) Nonreactive Nonreactive (BEAKER) (test code = 2585) Specimen is considered negative for HBsAg.BASIC METABOLIC [id number] 06:29:00 Test Item Value Reference Range Interpretation [...] S NOT APPLICABLE FOR DIALYSIS PATIEN TS. [employer] [place] Worker ID - VALDEZ [id number] 06:12:00 Test Item Value Reference Range Interpretation Comments MAGNESIUM (BEAKER) (test code = 1.9 mg/dL 1.6-2.6 627) B[employer] [place] Worker ID - VALDEZ [id number] 06:12:00 Test Item Value Reference Range Interpretation Comments PHOSPHORUS (BEAKER) (test code = 4.1 mg/dL 2.3-4.7 604) B[employer] [place] Worker ID - VALDEZ MPROTHROMBIN TIME/[id number] 06:07:00 Test Item Value Reference Range Interpretation Comments PROTIME (BEAKER) 24.0 seconds 11.9-14.2 H (test code = 759) INR (BEAKER) (test 2.17 See_Comment [Automat ed message] code = 370) The system [employer] generated this result transmitted ref erence range: [...] (BEAKER) (test code = 2801) BLOOD GAS, [id number] 05:49:00 Test Item Value Reference Range Interpretation [...] (BEAKER) (test code = 1819) 40.0 CALCIUM, [id number] 05:48:00 Test Item Value Reference Range Interpretation Comments CALCIUM IONIZED (BEAKER) (test 1.12 mmol/L 1.12-1.27 code = 698) PH, BLOOD (BEAKER) (test code = 7.41 1810) BASIC METABOLIC [id number] 04:12:00 Test Item Value Reference Range Interpretation [...] S NOT APPLICABLE FOR DIALYSIS PATIEN TS. [employer] [place] Worker ID - VALDEZ MOperator SHELBI - LINA LPROTHROMBIN TIME/[id number] 03:42:00 Test Item Value Reference Range Interpretation Comments PROTIME (BEAKER) 25.4 seconds 11.9-14.2 H (test code = 759) INR (BEAKER) (test 2.34 See_Comment [Automat ed message] code = 370) The system [employer] generated this result transmitted ref erence range: <=5.90. The reference range was not used to int erpret this result as normal/abnormal . RECOMMENDED COUMADIN/WARFARIN INR THERAPY RANGESSTANDARD DOSE: 2.0 - 3.0 Includes: PROPHYLAXIS forvenous thrombosis, systemic embolization; TREATMENT for venous thrombosis and/or pulmonary embolus.HIGH RISK: Target INR is 2.5-3.5 for patients with mechanical heart valves.[id number] 03:40:00 Test Item Value Reference Range Interpretation Comments MAGNESIUM (BEAKER) (test code = 2.0 mg/dL 1.6-2.6 627) B[employer] [place] Worker ID - LINA [id number] 03:19:00 Test Item Value Reference Range Interpretation Comments PHOSPHORUS (BEAKER) (test code = 7.9 mg/dL 2.3-4.7 H 604) B[employer] [place] Worker ID - VALDEZ MCBC W/PLT COUNT & AUTO [id number] 03:06:00 Test Item Value Reference Range Interpretation [...] (BEAKER) (test code = 2801) BLOOD GAS, [id number] 03:01:00 Test Item Value Reference Range Interpretation [...] (BEAKER) (test code = 1819) 100.0 CALCIUM, [id number] 03:01:00 Test Item Value Reference Range Interpretation Comments CALCIUM IONIZED (BEAKER) (test 1.12 mmol/L 1.12-1.27 code = 698) PH, BLOOD (BEAKER) (test code = 7.35 1810) RAD, CHEST, 1 VIEW, NON [id number] 23:28:00Reason for exam:->assess volume statusShould this be performed at the bedside?->Yes [facility] 1975 Sex: MFINAL [...] 02/13/2021 23:28:46 RAD, CHEST, 1 VIEW, NON [id number] 23:20:00Reason for exam:->difficulty of breathingShould this be performed at the bedside?->[facility] : 1975 Sex: [...] Krishnan Verified Date/Time: 02/13/2021 23:20:13 POCT-BLOOD GASES, [id number] 23:09:00 Test Item Value Reference Range Interpretation [...] EXCESS, -1.0 meq/L -2.0-3.0 : TESTED AT [facility] 6720 ARTERIAL-POC [facility], (BEAKER) (test code [address]: = 1841) B[employer] [place] Worker/Techni won ID = [id number] for SUBI A, ARGELIA [id number] 23:09:00 Test Item Value Reference Range Interpretation Comments POC-SODIUM (BEAKER) 135 meq/L 135-148 : TESTED AT [place] [address] (test code = 1542) [facility], [address]: B[place] Worker/Techni won ID = [id number] for SUBI A, ARGELIA [id number] 23:09:00 Test Item Value Reference Range Interpretation Comments POC-POTASSIUM 5.7 meq/L 3.6-5.5 H : TESTED AT [place] [address] (BEAKER) (test code [facility], = 1540) [address]: B[employer] [place] Worker/Techni won ID = [id number] for SUBI A, ARGELIA [id number] 23:09:00 Test Item Value Reference Range Interpretation Comments POC-HEMOGLOBIN 9.5 g/dL 13.0-16.8 L : TESTED AT [place] [address] (BEAKER) (test code = [facility], 1856) [address]: B[employer] [place] Worker/Techni won ID = [id number] for SUBI A, ARGELIA [id number] 23:09:00 Test Item Value Reference Range Interpretation Comments POC-HEMATOCRIT 28 % 40-50 L : [place] Worker/Te chnician ID = (BEAKER) (test code = 471917 for ARGELIA ORTEGA 1857) [id number] 23:09:00 Test Item Value Reference Range Interpretation Comments POC-GLUCOSE (BEAKER) 97 mg/dL 70-110 : [facility] (test code = 1855[facility], [address]: Brick [place]n Worker/Techni won ID = [id number] for SUBI A, ARGELIA POCT-GLUCOSE [id number] 22:30:00 Test Item Value Reference Range Interpretation Comments POC-GLUCOSE METER 102 mg/dL 70-110 : [facility] ([facility]ER[facility] (test code = [facility], 1538) [address]: B[place] Worker/Techni won ID = [id number] for DE NNJERAMIE, FRED POCT-GLUCOSE [id number] 17:26:00 Test Item Value Reference Range Interpretation Comments POC-GLUCOSE METER 85 mg/dL 70-110 : [facility] (test code [facility], = 1538) [address]: B[place] Worker/Techni won ID = [id number] for DORIAN SHAHID BASIC METABOLIC [id number] 07:01:00 Test Item Value Reference Range Interpretation [...] S NOT APPLICABLE FOR DIALYSIS PATIEN TS. B[employer] [place] Worker ID - KENNETH [id number] 06:57:00 Test Item Value Reference Range Interpretation Comments MAGNESIUM (BEAKER) (test code = 2.0 mg/dL 1.6-2.6 627) B[employer] [place] Worker ID - KENNETH [id number] 06:57:00 Test Item Value Reference Range Interpretation Comments PHOSPHORUS (BEAKER) (test code = 6.2 mg/dL 2.3-4.7 H 604) Brick [place]n Worker ID Doretha COOPER WPROTHROMBIN TIME/[id number] 06:18:00 Test Item Value Reference Range Interpretation Comments PROTIME (BEAKER) 25.8 seconds 11.9-14.2 H (test code = 759) INR (BEAKER) (test 2.39 See_Comment [Automat ed message] code = 370) The system [employer] generated this result transmitted ref erence range: <=5.90. The reference range was not used to int erpret this result as normal/abnormal . RECOMMENDED COUMADIN/WARFARIN INR THERAPY RANGESSTANDARD DOSE: 2.0 - 3.0 Includes: PROPHYLAXIS forvenous thrombosis, systemic embolization; TREATMENT for venous thrombosis and/or pulmonary embolus.HIGH RISK: Target INR is 2.5-3.5 for patients with mechanical heart valves.CALCIUM, [id number] 06:05:00 Test Item Value Reference Range Interpretation Comments CALCIUM IONIZED (BEAKER) (test 1.17 mmol/L 1.12-1.27 code = 698) PH, BLOOD (BEAKER) (test code = 7.39 0640) CBC W/PLT COUNT & AUTO [id number] 05:52:00 Test Item Value Reference Range Interpretation [...] PERCENT (BEAKER) (test code = 2801) POCT-GLUCOSE [id number] 20:40:00 Test Item Value Reference Range Interpretation Comments POC-GLUCOSE METER 94 mg/dL 70-110 : Notified RN/MD: TESTED (BEAKER) (test code = AT [facility] 6720 [facility] [place] 1538) [facility], [address]: B[employer] [place] Worker/Techni won ID = [id number] for MICHELLE DAMIAN POCT-GLUCOSE [id number] 18:06:00 Test Item Value Reference Range Interpretation Comments POC-GLUCOSE METER 114 mg/dL 70-110 H : TESTED A T [facility] 6720 (BEAKER) (test code = [facility], 1538) [address]: B[employer] [place] Worker/Techni won ID = [id number] for Kendy Sparrow HEMOGLOBIN AND [id number] 13:01:00 Test Item Value Reference Range Interpretation Comments HEMOGLOBIN (BEAKER) (test code = 8.7 GM/DL 13.7-17.5 L 410) HEMATOCRIT (BEAKER) (test code = 27.0 % 40.1-51.0 L 411) Brick [place]n Worker ID - 6000POCT-GLUCOSE [id number] 11:48:00 Test Item Value Reference Range Interpretation Comments POC-GLUCOSE METER 96 mg/dL 70-110 : TESTED A T [facility] 6720 (BEAKER) (test code = [facility], 1538) [address]: B[employer] [place] Worker/Techni won ID = [id number] for Bent on, Gladys [id number] 10:57:00 Test Item Value Reference Range Interpretation Comments HAPTOGLOBIN (BEAKER) (test code = < mg/dL 14-258 L 366) B[employer] [place] Worker ID - AAHAMIDPLASMA FREE [id number] 10:29:00 Test Item Value Reference Range Interpretation Comments HEMOGLOBIN PLASMA (BEAKER) (test 20.0 mg/dl 0.0-30.0 code = 1054) HEPATIC FUNCTION [id number] 10:21:00 Test Item Value Reference Range Interpretation [...] (test code = 42 U/L 6-55 347) B[employer] [place] Worker ID - KENNETH MADERAAD, CHEST, 1 VIEW, NON [id number] 07:07:00Reason for exam:->intubatedShould this be performed at the bedside?->Yes [facility] 1975 Sex: MFINAL [...] 444 U/L 125-220 H code = 635) [place] Worker ID - KENNETH WBASIC METABOLIC [id number] 05:03:00 Test Item Value Reference Range Interpretation [...] S NOT APPLICABLE FOR DIALYSIS PATIEN TS. B[employer] [place] Worker ID - KENNETH [id number] 04:57:00 Test Item Value Reference Range Interpretation Comments MAGNESIUM (BEAKER) (test code = 2.1 mg/dL 1.6-2.6 627) B[employer] [place]n Worker ID - KENNETH [id number] 04:57:00 Test Item Value Reference Range Interpretation Comments PHOSPHORUS (BEAKER) (test code = 7.1 mg/dL 2.3-4.7 H 604) B[employer] [place] Worker ID - KENNETH WCALCIUM, [id number] 04:35:00 Test Item Value Reference Range Interpretation Comments CALCIUM IONIZED (BEAKER) (test 1.09 mmol/L 1.12-1.27 L code = 698) PH, BLOOD (BEAKER) (test code = 7.37 1810) PROTHROMBIN [id number] 04:31:00 Test Item Value Reference Range Interpretation Comments PROTIME (BEAKER) 22.9 seconds 11.9-14.2 H (test code = 759) INR (BEAKER) (test 2.05 See_Comment [Automat ed message] code = 370) The system [employer] generated this result transmitted ref erence range: [...] PERCENT (BEAKER) (test code = 2801) POCT-GLUCOSE [id number] 21:06:00 Test Item Value Reference Range Interpretation Comments POC-GLUCOSE METER 108 mg/dL 70-110 : TESTED A T [facility] 6720 (BEAKER) (test code [facility], = 1538) [address]: B[employer] [place] Worker/Techni won ID = [id number] for Moni szymanski (contract)Rola faustino LACTATE DEHYDROGENASE (LDH)2021-02-11 10:34:00 Test Item Value Reference Range Interpretation Comments LACTATE DEHYDROGENASE (BEAKER) (test 559 U/L 125-220 H code = 635) B[place] Worker ID - AAHAMIDPOCT-GLUCOSE [id number] 07:41:00 Test Item Value Reference Range Interpretation Comments POC-GLUCOSE METER 86 mg/dL 70-110 : TESTED A T [facility] 6720 (BEAKER) (test [facility] = [facility], 1538) [address]: B[place] Worker/Techni won ID = [id number] for COSME NORMAN BASIC METABOLIC [id number] 06:26:00 Test Item Value Reference Range Interpretation [...] S NOT APPLICABLE FOR DIALYSIS PATIEN TS. [place] Worker ID - [id number] 06:07:00 Test Item Value Reference Range Interpretation Comments MAGNESIUM (BEAKER) (test code = 2.0 mg/dL 1.6-2.6 627) B[employer] [place] Worker ID - [id number] 06:07:00 Test Item Value Reference Range Interpretation Comments PHOSPHORUS (BEAKER) (test code = 6.1 mg/dL 2.3-4.7 H 604) B[employer] [place] Worker ID - DBRAD, CHEST, 1 VIEW, NON [id number] 05:49:00Reason for exam:- >intubatedShould this be performed at the bedside?->Yes [facility] 1975 Sex: [...] 02/11/2021 05:49:15 CBC W/PLT COUNT & AUTO [id number] 05:29:00 Test Item Value Reference Range Interpretation [...] PERCENT (BEAKER) (test code = 2801) POCT-GLUCOSE [id number] 21:00:00 Test Item Value Reference Range Interpretation Comments POC-GLUCOSE METER 137 mg/dL 70-110 H : TESTED A T [facility] 6720 (BEAKER) (test code = NORM Tenorio [facility], 1538) [address]: B[place] Worker/Techni won ID = [id number] for Manuelito Chavez BASIC METABOLIC [id number] 17:01:00 Test Item Value Reference Range Interpretation [...] S NOT APPLICABLE FOR DIALYSIS PATIEN TS. [place] [place] Worker ID - [id number] 17:00:00 Test Item Value Reference Range Interpretation Comments POTASSIUM (BEAKER) (test code = 4.2 meq/L 3.5-5.1 379) [id number] 17:00:00 Test Item Value Reference Range Interpretation Comments MAGNESIUM (BEAKER) (test code = 2.0 mg/dL 1.6-2.6 627) [place] Worker ID - DBLACTATE DEHYDROGENASE (LDH)2021-02-10 17:00:00 Test Item Value Reference Range Interpretation Comments LACTATE DEHYDROGENASE (BEAKER) (test 506 U/L 125-220 H code = 635) [place] Worker ID - DBCBC W/PLT COUNT & AUTO [id number] 16:38:00 Test Item Value Reference Range Interpretation [...] PERCENT (BEAKER) (test code = 2801) POCT-GLUCOSE [id number] 14:15:00 Test Item Value Reference Range Interpretation Comments POC-GLUCOSE METER 135 mg/dL 70-110 H : TESTED A T [facility] 6720 (BEAKER) (test code = [facility] [facility] [place], 1538) [address]: B[employer] [place] Worker/Techni won ID = [id number] for Paige Russell [id number] 11:35:00 Test Item Value Reference Range Interpretation Comments PREALBUMIN (BEAKER) (test code = 20 mg/dL 14-45 586) [place] Worker ID - DBC-REACTIVE [id number] 10:53:00 Test Item Value Reference Range Interpretation Comments C-REACTIVE PROTEIN (BEAKER) (test 2.09 mg/dL 0.00-0.50 H code = 676) [place] [place] Worker ID - DBRAD, CHEST, 1 VIEW, NON [id number] 07:13:00Reason for exam:- >intubatedShould this be performed at the bedside?->Yes [facility] 1975 Sex: [...] Taylor Verified Date/Time: 02/10/2021 07:13:47 Reading Location: [facility] Radiology Reading Room CALCIUM, [id number] 03:42:00 Test Item Value Reference Range Interpretation Comments CALCIUM IONIZED (BEAKER) (test 1.24 mmol/L 1.12-1.27 code = 698) PH, BLOOD (BEAKER) (test code = 7.40 1810) BASIC METABOLIC [id number] 03:33:00 Test Item Value Reference Range Interpretation [...] S NOT APPLICABLE FOR DIALYSIS PATIEN TS. [place] [place] Worker ID - KENNETH [id number] 03:32:00 Test Item Value Reference Range Interpretation Comments MAGNESIUM (BEAKER) (test code = 2.3 mg/dL 1.6-2.6 627) B[employer] [place] Worker ID - KENNETH [id number] 03:32:00 Test Item Value Reference Range Interpretation Comments PHOSPHORUS (BEAKER) (test code = 7.1 mg/dL 2.3-4.7 H 604) [place] Worker SHELBI COOPER WPROTHROMBIN [id number] 03:31:00 Test Item Value Reference Range Interpretation Comments PROTIME (BEAKER) 18.9 seconds 11.9-14.2 H (test code = 759) INR (BEAKER) (test 1.61 See_Comment [Automat ed message] code = 370) The system [employer] generated this result transmitted ref erence range: [...] PERCENT (BEAKER) (test code = 2801) POCT-GLUCOSE [id number] 22:04:00 Test Item Value Reference Range Interpretation Comments POC-GLUCOSE METER 125 mg/dL 70-110 H : TESTED A T [facility] 6720 (BEAKER) (test code = [facility], 153) [address]: B[employer] [place] Worker/Techni won ID = [id number] for September POCT-GLUCOSE [id number] 16:29:00 Test Item Value Reference Range Interpretation Comments POC-GLUCOSE METER 112 mg/dL 70-110 H : TESTED A T [facility] 6720 (BEAKER) (test code = [facility], 153) [address]: B[place] Worker/Techni won ID = [id number] for DELMER SHANTHIMARSHALLTHOMAS POCT-GLUCOSE [id number] 11:26:00 Test Item Value Reference Range Interpretation Comments POC-GLUCOSE METER 97 mg/dL 70-110 : TESTED A T [facility] 6720 (BEAKER) (test code = [facility], 1538) [address]: B[place] Worker/Techni won ID = [id number] for DIPESH Rubi, THOMAS POCT-GLUCOSE [id number] 07:49:00 Test Item Value Reference Range Interpretation Comments POC-GLUCOSE METER 82 mg/dL 70-110 : TESTED A T [facility] 6720 (BEAKER) (test code = [facility] [place], 1538) [address]: B[employer] [place] Worker/Techni won ID = [id number] for THOMAS STEVENS BASIC METABOLIC [id number] 05:07:00 Test Item Value Reference Range Interpretation [...] S NOT APPLICABLE FOR DIALYSIS PATIEN TS. [place] [place] Worker ID - VALDEZ [id number] 05:01:00 Test Item Value Reference Range Interpretation Comments MAGNESIUM (BEAKER) (test code = 2.2 mg/dL 1.6-2.6 627) [employer] [place] Worker ID - VALDEZ [id number] 05:01:00 Test Item Value Reference Range Interpretation Comments PHOSPHORUS (BEAKER) (test code = 5.4 mg/dL 2.3-4.7 H 604) [place] Worker ID - VALDEZ MCALCIUM, [id number] 04:47:00 Test Item Value Reference Range Interpretation Comments CALCIUM IONIZED (BEAKER) (test 1.22 mmol/L 1.12-1.27 code = 698) PH, BLOOD (BEAKER) (test code = 7.42 1810) PROTHROMBIN [id number] 04:38:00 Test Item Value Reference Range Interpretation Comments PROTIME (BEAKER) 18.8 seconds 11.9-14.2 H (test code = 759) INR (BEAKER) (test 1.60 See_Comment [Automat ed message] code = 370) The system [employer] generated this result transmitted ref erence range: [...] = 2801) RAD, CHEST, 1 VIEW, NON [id number] 04:04:00Reason for exam:- >intubatedShould this be performed at the bedside?->Yes [facility] : 1975 Sex: MFINAL REPORT RAD, CHEST, 1 VIEW, NON DEPT INDICATION: intubated TESFAYE RISON: Prior day's exam FINDINGS: Portable frontal view of the chest. IMPRESSION: Support Lines: Stable. Lungs and pleura: Unchanged bilateral airspace and pleural opacities. No pneumothorax.Heart and mediastinum: Stable contours and postsurgical changes.Additional findings: None. Signed: Pedro Krishnan [facility]STITUTEeport Verified Date/Time: 02/09/2021 04:04:14 POCT-GLUCOSE [id number] 22:18:00 Test Item Value Reference Range Interpretation Comments POC-GLUCOSE METER 98 mg/dL 70-110 : TESTED A T [facility] 6720 (BEAKER) (test code = NORM [place] [facility], 1538) [id number]: [place] Worker/Techni won ID = [id number] for MESERET DELVALLESeptember [id number] 19:37:00 Test Item Value Reference Range Interpretation Comments MAGNESIUM (BEAKER) 1.9 mg/dL 1.6-2.6 Specimen slightly (test code = 627) hemolyzed [place] Worker ID - BSHEMOGLOBIN AND [id number] 19:16:00 Test Item Value Reference Range Interpretation Comments HEMOGLOBIN (BEAKER) (test code = 8.3 GM/DL 13.7-17.5 L 410) HEMATOCRIT (BEAKER) (test code = 24.9 % 40.1-51.0 L 411) [place] Worker ID - [id number]-GLUCOSE [id number] 17:27:00 Test Item Value Reference Range Interpretation Comments POC-GLUCOSE METER 82 mg/dL 70-110 : TESTED A T [facility] 6720 (BEAKER) (test code = [facility], 1538) [address]: [place] Worker/Techni won ID = [id number] for RONAL BROCK [id number] 15:52:00 Test Item Value Reference Range Interpretation Comments FERRITIN (BEAKER) (test code = 2985.27 ng/mL 5.00-275.00 H 361) [place] Worker ID - BSOperator ID - BSIRON, TIBC, % SAT. (WITHOUT FERRITIN)2021-02-08 14:59:00 Test Item Value Reference Range Interpretation Comments IRON (BEAKER) (test code = 547) 68.0 ug/dL 40.0-160.0 TOTAL IRON BINDING CAPACITY 136 ug/dL 250-450 L (BEAKER) (test code = 769) IRON % SATURATION (2) (BEAKER) 50 % 20-55 (test code = 2590) [place] Worker ID - BSPROTHROMBIN TIME/[id number] 14:45:00 Test Item Value Reference Range Interpretation Comments PROTIME (BEAKER) 19.5 seconds 11.9-14.2 H (test code = 759) INR (BEAKER) (test 1.67 See_Comment [Automat ed message] code = 370) The system [employer] generated this result transmitted ref erence range: <=5.90. The reference range was not used to int erpret this result as normal/abnormal . RECOMMENDED COUMADIN/WARFARIN INR THERAPY RANGESSTANDARD DOSE: 2.0 - 3.0 Includes: PROPHYLAXIS forvenous thrombosis, systemic embolization; TREATMENT for venous thrombosis and/or pulmonary embolus.HIGH RISK: Target INR is 2.5-3.5 for patients with mechanical heart valves.POCT-GLUCOSE [id number] 11:26:00 Test Item Value Reference Range Interpretation Comments POC-GLUCOSE METER 112 mg/dL 70-110 H : TESTED A T [facility] 6720 (BEAKER) (test code = NORM Tenorio [facility], 1538) 50597: [place] Worker/Techni won ID = [id number] for BETH PEREZAN POCT-GLUCOSE [id number] 07:47:00 Test Item Value Reference Range Interpretation Comments POC-GLUCOSE METER 75 mg/dL 70-110 : TESTED A T [facility] 6720 (BEAKER) (test code = [employer]ACQUEL[employer] [facility], 1538) 49786: B[place] Worker/Techni won ID = [id number] for RONAL BROCK RAD, CHEST, 1 VIEW, NON [id number] 07:43:00Reason for exam:- >intubatedShould this be performed at the bedside?->Yes [facility] 1975 Sex: MFINAL REPORT RAD, CHEST, 1 VIEW, NON DEPT INDICATION: intubated TESFAYE RISON: Prior day's exam FINDINGS: Portable frontal view of the chest. IMPRESSION: Support Lines: Stable. Lungs and pleura: Worsening interstitial edema and effusions. No pneumothorax.Heart and mediastinum: Stable contours. Stable surgical changes.Additional findings: None. Signed: JR Tate Robert MDReport Verified Date/Time: 02/08/2021 07:43:26 Reading Location: [facility] Radiology Reading Room BASIC METABOLIC [id number] 04:08:00 Test Item Value Reference Range Interpretation [...] S NOT APPLICABLE FOR DIALYSIS PATIEN TS. [place] Worker ID - PIRAFY [id number] 04:07:00 Test Item Value Reference Range Interpretation Comments MAGNESIUM (BEAKER) (test code = 1.7 mg/dL 1.6-2.6 627) B[employer] [place] Worker ID - LINA [id number] 04:07:00 Test Item Value Reference Range Interpretation Comments PHOSPHORUS (BEAKER) (test code = 6.1 mg/dL 2.3-4.7 H 604) B[place] Worker ID - PIRAFY LCALCIUM, [id number] 04:02:00 Test Item Value Reference Range Interpretation Comments CALCIUM IONIZED (BEAKER) (test 1.19 mmol/L 1.12-1.27 code = 698) PH, BLOOD (BEAKER) (test code = 7.40 1810) CBC W/PLT COUNT & AUTO [id number] 03:56:00 Test Item Value Reference Range Interpretation [...] PERCENT (BEAKER) (test code = 2801) PROTHROMBIN [id number] 03:52:00 Test Item Value Reference Range Interpretation Comments PROTIME (BEAKER) 19.3 seconds 11.9-14.2 H (test code = 759) INR (BEAKER) (test 1.65 See_Comment [Automat ed message] code = 370) The system [employer] generated this result transmitted ref erence range: <=5.90. The reference range was not used to int erpret this result as normal/abnormal . RECOMMENDED COUMADIN/WARFARIN INR THERAPY RANGESSTANDARD DOSE: 2.0 - 3.0 Includes: PROPHYLAXIS forvenous thrombosis, systemic embolization; TREATMENT for venous thrombosis and/or pulmonary embolus.HIGH RISK: Target INR is 2.5-3.5 for patients with mechanical heart valves.POCT-GLUCOSE [id number] 22:32:00 Test Item Value Reference Range Interpretation Comments POC-GLUCOSE METER 93 mg/dL 70-110 : TESTED A T [facility] 6720 (BEAKER) (test code = [employer] [facility], 1538) 56269: B[place] Worker/Techni won ID = [id number] for MESERET DELVALLESeptember POCT-GLUCOSE [id number] 17:21:00 Test Item Value Reference Range Interpretation Comments POC-GLUCOSE METER 81 mg/dL 70-110 : TESTED A T [facility] 6720 (BEAKER) (test code = Language Learning Class [facility], 1538) 88223: [place] Worker/Techni won ID = [id number] for RONAL BROCK HEMOGLOBIN AND [id number] 13:35:00 Test Item Value Reference Range Interpretation Comments HEMOGLOBIN (BEAKER) (test code = 7.1 GM/DL 13.7-17.5 L 410) HEMATOCRIT (BEAKER) (test code = 21.6 % 40.1-51.0 L 411) [place] [place] Worker ID - [id number]-GLUCOSE [id number] 12:35:00 Test Item Value Reference Range Interpretation Comments POC-GLUCOSE METER 90 mg/dL 70-110 : TESTED Elias Dominguez [facility] 6720 (TAMARA) (test code = NORM [facility] [place], 1538) 26493: Brick [place] Worker/Techni won ID = [id number] for RONAL BROCK CT, BRAIN, WITHOUT [id number] 11:47:00Reason for exam:->lt hemiparesis What is the patient's sedation requirement?->No Sedation [facility] : 1975 Sex: MAddendum BeginsREPORT STATUS:A Addendum: Questionable subcentimeter region of infarction within the right inferior frontal lobe (axial image 19), not seen on prior exam.Findings discussed with ordering provider by Dr. Cantu at time of this addendum. Signed: Re Cantu MDReport Verified Date/Time: 02/07/2021 11:47:29 Reading Location: [facility] C013V Neuro Reading RoomAddendum EndsFINAL REPORT CT, [...] Cantu MDReport Verified Date/Time:02/07/2021 10:56:22 Reading Location: [address] Neuro Reading Room POCT-GLUCOSE METER 2021-02-07 07:42:00 Test Item Value Reference Range Interpretation Comments POC-GLUCOSE METER 104 mg/dL 70-110 : TESTED A T [facility] 6720 (BEAKER) (test code = NORM [place] [facility], 1538) 41006: B[place] Worker/Techni won ID = [id number] for LACY Karis RONAL RAD, CHEST, 1 VIEW, NON [id number] 07:24:00Reason for exam:- >intubatedShould this be performed at the bedside?->Yes [facility] 1975 Sex: MFINAL REPORT RAD, CHEST, 1 VIEW, NON DEPT INDICATION: intubated TESFAYE RISON: Prior day's exam FINDINGS: Portable frontal view of the chest. IMPRESSION: Support Lines: Stable. Lungs and pleura: Improved but persistent interstitial edema. No pneumothorax.Heart and mediastinum: Stable contours. Stable surgical changes.Additional findings: None. Signed: JR Bebeto, Taye Taylor Verified Date/Time: 02/07/2021 07:24:30 Reading Location: [facility] Radiology Reading Room CALCIUM, [id number] 05:07:00 Test Item Value Reference Range Interpretation Comments CALCIUM IONIZED (BEAKER) (test 1.17 mmol/L 1.12-1.27 code = 698) PH, BLOOD (BEAKER) (test code = 7.45 1810) BASIC METABOLIC [id number] 03:45:00 Test Item Value Reference Range Interpretation [...] S NOT APPLICABLE FOR DIALYSIS PATIEN TS. [place] Worker ID - VALDEZ [id number] 03:40:00 Test Item Value Reference Range Interpretation Comments MAGNESIUM (BEAKER) (test code = 1.7 mg/dL 1.6-2.6 627) [place] [place] Worker ID - VALDEZ [id number] 03:40:00 Test Item Value Reference Range Interpretation Comments PHOSPHORUS (BEAKER) (test code = 4.9 mg/dL 2.3-4.7 H 604) B[employer] [place] Worker ID - VALDEZ MPROTHROMBIN TIME/[id number] 03:29:00 Test Item Value Reference Range Interpretation Comments PROTIME (BEAKER) 18.4 seconds 11.9-14.2 H (test code = 759) INR (BEAKER) (test 1.55 See_Comment [Automat ed message] code = 370) The system [employer] generated this result transmitted ref erence range: [...] (test code = 2801) FUNGUS CULTURE + [id number] 22:52:00 Test Item Value Reference Range Interpretation Comments CULTURE (BEAKER) (test No fungus isolated in code = 1095) 28 days FUNGUS SMEAR (BEAKER) No fungi seen (test code = 1406) POCT-GLUCOSE [id number] 16:41:00 Test Item Value Reference Range Interpretation Comments POC-GLUCOSE METER 97 mg/dL 70-110 : TESTED A T [facility] 6720 (BEAKER) (test code = NORM [place], 1538) 55028: B[place] Worker/Techni won ID = [id number] for IVONE ZHAO POCT-GLUCOSE [id number] 11:40:00 Test Item Value Reference Range Interpretation Comments POC-GLUCOSE METER 102 mg/dL 70-110 : TESTED A T [facility] 6720 (BEAKER) (test code = NORM [place] [facility], 1538) 01810: B[place] Worker/Techni won ID = [id number] for IVONE RIBEIRO HEPATIC FUNCTION [id number] 08:31:00 Test Item Value Reference Range Interpretation [...] (test code = 37 U/L 6-55 347) B[employer] [place] Worker ID - VALDEZ CAROLD, CHEST, 1 VIEW, NON [id number] 07:58:00Reason for exam:->intubatedShould this be performed at the bedside?->Yes [facility] 1975 Sex: [...] MDReport Verified Date/Time: 02/06/2021 07:58:22 Reading Location: [facility] Radiology Reading Room POCT-GLUCOSE [id number] 06:40:00 Test Item Value Reference Range Interpretation Comments POC-GLUCOSE METER 102 mg/dL 70-110 : TESTED A T [facility] 6720 (BEAKER) (test code = NORM [place] [place], 1538) 80211: B[place] Worker/Techni won ID = [id number] for Cynthia Laird BASIC METABOLIC [id number] 04:44:00 Test Item Value Reference Range Interpretation [...] S NOT APPLICABLE FOR DIALYSIS PATIEN TS. B[employer] [place] Worker ID - [id number] 04:20:00 Test Item Value Reference Range Interpretation Comments MAGNESIUM (BEAKER) (test code = 1.8 mg/dL 1.6-2.6 627) B[place] Worker ID - [id number] 04:20:00 Test Item Value Reference Range Interpretation Comments PHOSPHORUS (BEAKER) (test code = 6.3 mg/dL 2.3-4.7 H 604) B[place] Worker ID - DBPROTHROMBIN TIME/[id number] 04:19:00 Test Item Value Reference Range Interpretation Comments PROTIME (BEAKER) 22.0 seconds 11.9-14.2 H (test code = 759) INR (BEAKER) (test 1.95 See_Comment [Automat ed message] code = 370) The system [employer] generated this result transmitted ref erence range: <=5.90. The reference range was not used to int erpret this result as normal/abnormal . RECOMMENDED COUMADIN/WARFARIN INR THERAPY RANGESSTANDARD DOSE: 2.0 - 3.0 Includes: PROPHYLAXIS forvenous thrombosis, systemic embolization; TREATMENT for venous thrombosis and/or pulmonary embolus.HIGH RISK: Target INR is 2.5-3.5 for patients with mechanical heart valves.CALCIUM, [id number] 03:29:00 Test Item Value Reference Range Interpretation Comments CALCIUM IONIZED (BEAKER) (test 1.18 mmol/L 1.12-1.27 code = 698) PH, BLOOD (BEAKER) (test code = 7.43 1810) CBC W/PLT COUNT & AUTO [id number] 03:28:00 Test Item Value Reference Range Interpretation [...] PERCENT (BEAKER) (test code = 2801) POCT-GLUCOSE [id number] 21:26:00 Test Item Value Reference Range Interpretation Comments POC-GLUCOSE METER 115 mg/dL 70-110 H : TESTED A T [facility] 6720 (BEAKER) (test code = [facility], 1538) 12322: B[place] Worker/Techni won ID = [id number] for Go Cynthia slaughter [id number] 18:57:00 Test Item Value Reference Range Interpretation Comments MAGNESIUM (BEAKER) (test code = 1.8 mg/dL 1.6-2.6 627) B[employer] [place] Worker ID - LINA LPOCT-GLUCOSE [id number] 18:44:00 Test Item Value Reference Range Interpretation Comments POC-GLUCOSE METER 102 mg/dL 70-110 : TESTED A T [facility] 6720 (BEAKER) (test code = [facility], 153) 94144: B[place] Worker/Techni won ID = [id number] for Am inu, Aleksandarfayat POCT-GLUCOSE [id number] 12:50:00 Test Item Value Reference Range Interpretation Comments POC-GLUCOSE METER 84 mg/dL 70-110 : TESTED A T [facility] 6720 (TAMARA) (test code = NORM [place] [facility], 1538) 15533: B[place] Worker/Techni won ID = [id number] for RONAL BROCK POCT-GLUCOSE [id number] 07:48:00 Test Item Value Reference Range Interpretation Comments POC-GLUCOSE METER 88 mg/dL 70-110 : TESTED A T [facility] 6720 (TAMARA) (test code = NORM [place] [facility], 1538) 61888: B[place] Worker/Techni won ID = [id number] for RONAL BROCK RAD, CHEST, 1 VIEW, NON [id number] 06:09:00Reason for exam:- >intubatedShould this be performed at the bedside?->Yes [facility] 1975 Sex: [...] Cantu Verified Date/Time: 02/05/2021 06:09:25 BASIC METABOLIC [id number] 04:35:00 Test Item Value Reference Range Interpretation [...] S NOT APPLICABLE FOR DIALYSIS PATIEN TS. B[employer] [place] Worker ID - LINA [id number] 04:16:00 Test Item Value Reference Range Interpretation Comments MAGNESIUM (BEAKER) (test code = 1.6 mg/dL 1.6-2.6 627) Brick [place]n Worker ID - LINA [id number] 04:16:00 Test Item Value Reference Range Interpretation Comments PHOSPHORUS (BEAKER) (test code = 5.1 mg/dL 2.3-4.7 H 604) Brick [place] Worker ID - LINA LCBC W/PLT COUNT & AUTO [id number] 04:13:00 Test Item Value Reference Range Interpretation [...] PERCENT (BEAKER) (test code = 2801) PROTHROMBIN [id number] 03:39:00 Test Item Value Reference Range Interpretation Comments PROTIME (BEAKER) 27.9 seconds 11.9-14.2 H (test code = 759) INR (BEAKER) (test 2.64 See_Comment [Automat ed message] code = 370) The system [employer] generated this result transmitted ref erence range: <=5.90. The reference range was not used to int erpret this result as normal/abnormal . RECOMMENDED COUMADIN/WARFARIN INR THERAPY RANGESSTANDARD DOSE: 2.0 - 3.0 Includes: PROPHYLAXIS forvenous thrombosis, systemic embolization; TREATMENT for venous thrombosis and/or pulmonary embolus.HIGH RISK: Target INR is 2.5-3.5 for patients with mechanical heart valves.CALCIUM, [id number] 03:35:00 Test Item Value Reference Range Interpretation Comments CALCIUM IONIZED (BEAKER) (test 1.11 mmol/L 1.12-1.27 L code = 698) PH, BLOOD (BEAKER) (test code = 7.48 1810) POCT-GLUCOSE [id number] 21:54:00 Test Item Value Reference Range Interpretation Comments POC-GLUCOSE METER 105 mg/dL 70-110 : TESTED A T [facility] 6720 ([employer]) (test code = NORM [place] [facility], 1538) 53396: B[place] Worker/Techni won ID = [id number] for September PROTHROMBIN [id number] 20:05:00 Test Item Value Reference Range Interpretation Comments PROTIME (BEAKER) 30.9 seconds 11.9-14.2 H (test code = 759) INR (BEAKER) (test 3.01 See_Comment [Automat ed message] code = 370) The system [employer] generated this result transmitted ref erence range: <=5.90. The reference range was not used to int erpret this result as normal/abnormal . RECOMMENDED COUMADIN/WARFARIN INR THERAPY RANGESSTANDARD DOSE: 2.0 - 3.0 Includes: PROPHYLAXIS forvenous thrombosis, systemic embolization; TREATMENT for venous thrombosis and/or pulmonary embolus.HIGH RISK: Target INR is 2.5-3.5 for patients with mechanical heart valves.POCT-GLUCOSE [id number] 19:04:00 Test Item Value Reference Range Interpretation Comments POC-GLUCOSE METER 128 mg/dL 70-110 H : TESTED A T [facility] 6720 ([employer]) (test code = NORM [place] [facility], 1538) 79521: B[place] Worker/Techni won ID = [id number] for Fo ntenotSengLevy CBC W/PLT COUNT & AUTO [id number] 15:37:00 Test Item Value Reference Range Interpretation [...] PERCENT (BEAKER) (test code = 2801) POCT-GLUCOSE [id number] 11:48:00 Test Item Value Reference Range Interpretation Comments POC-GLUCOSE METER 113 mg/dL 70-110 H : TESTED A T [facility] 6720 (BEAKER) (test code = NORM [place], 1538) 25056: B[place] Worker/Techni won ID = [id number] for THOMAS BRYANT POCT-GLUCOSE [id number] 07:41:00 Test Item Value Reference Range Interpretation Comments POC-GLUCOSE METER 119 mg/dL 70-110 H : TESTED A T [facility] 6720 (BEAKER) (test code = NORM [place] [facility], 1538) 97219: B[place] Worker/Techni won ID = [id number] for THOMAS BRYANT PROTHROMBIN [id number] 06:34:00 Test Item Value Reference Range Interpretation Comments PROTIME (BEAKER) 35.3 seconds 11.9-14.2 H (test code = 759) INR (BEAKER) (test 3.56 See_Comment [Automat ed message] code = 370) The system [employer] generated this result transmitted ref erence range: <=5.90. The reference range was not used to int erpret this result as normal/abnormal . RECOMMENDED COUMADIN/WARFARIN INR THERAPY RANGESSTANDARD DOSE: 2.0 - 3.0 Includes: PROPHYLAXIS forvenous thrombosis, systemic embolization; TREATMENT for venous thrombosis and/or pulmonary embolus.HIGH RISK: Target INR is 2.5-3.5 for patients with mechanical heart valves.RAD, CHEST, 1 VIEW, NON [id number] 06:02:00Reason for exam:->intubatedShould this be performed at the bedside?->[facility] : 1975 Sex: [...] MDReport Verified Date/Time: 02/04/2021 06:02:13 BASIC METABOLIC [id number] 05:16:00 Test Item Value Reference Range Interpretation [...] S NOT APPLICABLE FOR DIALYSIS PATIEN TS. B[place] Worker ID - VALDEZ [id number] 05:09:00 Test Item Value Reference Range Interpretation Comments PHOSPHORUS (BEAKER) (test code = 6.8 mg/dL 2.3-4.7 H 604) B[place] Worker ID - VALDEZ [id number] 05:08:00 Test Item Value Reference Range Interpretation Comments MAGNESIUM (BEAKER) (test code = 1.9 mg/dL 1.6-2.6 627) Brick [place]n Worker ID - VALDEZ MCALCIUM, [id number] 05:01:00 Test Item Value Reference Range Interpretation Comments CALCIUM IONIZED (BEAKER) (test 1.12 mmol/L 1.12-1.27 code = 698) PH, BLOOD (BEAKER) (test code = 7.43 1810) CBC W/PLT COUNT & AUTO [id number] 04:49:00 Test Item Value Reference Range Interpretation [...] ABSOLUTE COUNT 7.15 K/ L 1.78-5.38 H ([facility]) (test code = 670) LYMPHOCYTES ABSOLUTE COUNT 0.85 K/ L 1.32-3.57 L (BEAKER) (test code = 414) MONOCYTES ABSOLUTE COUNT (BEAKER) 0.67 K/ L 0.30-0.82 (test code = 415) EOSINOPHILS ABSOLUTE COUNT 0.37 K/ L 0.04-0.54 (BEAKER) (test code = 416) BASOPHILS ABSOLUTE COUNT (BEAKER) 0.06 K/ L 0.01-0.08 (test code = 417) IMMATURE GRANULOCYTES-RELATIVE 0 % 0-1 PERCENT ([facility]) (test code = 2801) POCT-GLUCOSE [id number] 00:50:00 Test Item Value Reference Range Interpretation Comments POC-GLUCOSE METER 115 mg/dL 70-110 H : Notified RN/MD: ([facility]) (test code = TESTED AT [place] [address]) [facility], [address]: Brick [place]n Worker/Techni won ID = [id number] for Vinod Canas POCT-GLUCOSE [id number] 17:39:00 Test Item Value Reference Range Interpretation Comments POC-GLUCOSE METER 101 mg/dL 70-110 : TESTED A T [place] [address] ([facility]) (test code = [facility], 153) [address]: Brick [place]n Worker/Techni won ID = [id number] for RONAL PEREZ POCT-GLUCOSE [id number] 11:33:00 Test Item Value Reference Range Interpretation Comments POC-GLUCOSE METER 90 mg/dL 70-110 : TESTED A T [place] [address] ([facility]) (test code = [facility], [facility]) [address]: Brick Kiln Worker/Techni won ID = [id number] for VINOD, RONAL RAD, CHEST, 1 VIEW, NON [id number] 09:24:00Reason for exam:- >intubatedShould this be performed at the bedside?->Yes [facility] 1975 Sex: MFINAL [...] Cantu Verified Date/Time: 02/03/2021 09:24:45 Reading Location: [facility] Radiology Reading Room POCT-GLUCOSE METER 2021-02-03 07:45:00 Test Item Value Reference Range Interpretation Comments POC-GLUCOSE METER 87 mg/dL 70-110 : TESTED A T [facility] 6720 (BEAKER) (test code [facility], = 1538) [address]: Brick [place]n Worker/Techni won ID = [id number] for Timmy hernandez [id number]), [facility] BASIC METABOLIC [id number] 05:08:00 Test Item Value Reference Range Interpretation [...] S NOT APPLICABLE FOR DIALYSIS PATIEN TS. Brick [place]n Worker ID - PIRAFY [id number] 05:07:00 Test Item Value Reference Range Interpretation Comments MAGNESIUM (BEAKER) (test code = 1.9 mg/dL 1.6-2.6 627) Brick [place]n Worker ID - PIRAFY [id number] 05:07:00 Test Item Value Reference Range Interpretation Comments PHOSPHORUS (BEAKER) (test code = 5.9 mg/dL 2.3-4.7 H 604) Brick [place]n Worker ID - PIRAFY LCALCIUM, [id number] 03:59:00 Test Item Value Reference Range Interpretation Comments CALCIUM IONIZED (BEAKER) (test 1.13 mmol/L 1.12-1.27 code = 698) PH, BLOOD (BEAKER) (test code = 7.43 1810) CBC W/PLT COUNT & AUTO [id number] 03:45:00 Test Item Value Reference Range Interpretation [...] PERCENT (BEAKER) (test code = 2801) PROTHROMBIN [id number] 03:38:00 Test Item Value Reference Range Interpretation Comments PROTIME (BEAKER) 28.4 seconds 11.9-14.2 H (test code = 759) INR (BEAKER) (test 2.70 See_Comment [Automat ed message] code = 370) The system [employer] generated this result transmitted ref erence range: <=5.90. The reference range was not used to int erpret this result as normal/abnormal . RECOMMENDED COUMADIN/WARFARIN INR THERAPY RANGESSTANDARD DOSE: 2.0 - 3.0 Includes: PROPHYLAXIS forvenous thrombosis, systemic embolization; TREATMENT for venous thrombosis and/or pulmonary embolus.HIGH RISK: Target INR is 2.5-3.5 for patients with mechanical heart valves.POCT-GLUCOSE [id number] 22:10:00 Test Item Value Reference Range Interpretation Comments POC-GLUCOSE METER 85 mg/dL 70-110 : [facility]20 [facility] (test code = [facility], 1538) 70982: Brick [place]n Worker/Techni won ID = [id number] for MESERET DE SOUZA AUBREY POCT-GLUCOSE [id number] 16:43:00 Test Item Value Reference Range Interpretation Comments POC-GLUCOSE METER 88 mg/dL 70-110 : [facility] T [facility] 6720 [facility] (test code = [facility], 1538) 56572: Brick [place]n Worker/Techni won ID = [id number] for IVONE ZHAO POCT-GLUCOSE [id number] 12:16:00 Test Item Value Reference Range Interpretation Comments POC-GLUCOSE METER 94 mg/dL 70-110 : TESTED A T [facility] 6720 ([facility]) (test code = [facility], 1538) 97643: Brick [place]n Worker/Techni won ID = [id number] for IVONE ZHAO RAD, CHEST, 1 VIEW, NON [id number] 08:20:00Reason for exam:- >intubatedShould this be performed at the bedside?->Yes [facility] : 1975 Sex: [...] Cantu Verified Date/Time: 02/02/2021 08:20:25 Reading Location: [facility] Radiology Reading Room XR chest 1 view portable / [id number] 08:20:00Interface, External Ris In - 02/02/2021 8:22 [...] Cantu Verified Date/Time: 02/02/2021 08:20:25 Reading Location: [facility] / [id number] 08:20:00Interface, External Ris In - 02/02/2021 8:22 [...] Cantu Verified Date/Time: 02/02/2021 08:20:25 Reading Location: [facility] / [id number] 08:20:00Interface, External Ris In - 02/02/2021 8:22 [...] Cantu Verified Date/Time: 02/02/2021 08:20:25 Reading Location: [facility] Radiology Reading Room [facility]-Glucose [id number] 07:38:00 Test Item Value Reference Range Interpretation Comments POC-Glucose Meter (test 83 mg/dL 70-110 : TE STED AT [facility] code = 1538) [address] [place] [address], 770 30: Brick Kiln Worker/Techni won ID = [id number] for VINOD, RONAL Lab Interpretation (test Normal code = 66457-7) [facility]-Glucose [id number] 07:38:00 Test Item Value Reference Range Interpretation Comments POC-Glucose Meter (test 83 mg/dL 70-110 : TE STED [facility] code = 1538) [address] [place] [address], 770 30: Brick Kiln Worker/Techni won ID = [id number] for VINOD, RONAL Lab Interpretation (test Normal code = 47151-9) [facility]-Glucose [id number] 07:38:00 Test Item Value Reference Range Interpretation Comments POC-Glucose Meter (test 83 mg/dL 70-110 : TE STED AT [facility] code = 1538) [address] [place] [address], 770 30: Brick Kiln Worker/Techni won ID = [id number] for VINOD, RONAL Lab Interpretation (test Normal code = 39388-0) [facility]-GLUCOSE [id number] 07:38:00 Test Item Value Reference Range Interpretation Comments POC-GLUCOSE METER 83 mg/dL 70-110 : TESTED A T [facility] 6720 (BEAKER) (test code = NORM Tenorio [facility], 1538) [address]: Brick Kiln Worker/Techni won ID = [id number] for RONAL BROCK Calcium, [id number] 06:32:00 Test Item Value Reference Range Interpretation Comments Calcium, Ion (test code = 1993-08) 1.09 mmol/L 1.12-1.27 L pH, Blood (test code = 32760-8) 7.42 Lab Interpretation (test code = Abnormal 58348-4) [facility], [id number] 06:32:00 Test Item Value Reference Range Interpretation Comments Calcium, Ion (test code = 1993-08) 1.09 mmol/L 1.12-1.27 L pH, Blood (test code = 09707-5) 7.42 Lab Interpretation (test code = Abnormal 61747-8) [facility], [id number] 06:32:00 Test Item Value Reference Range Interpretation Comments Calcium, Ion (test code = 1993-08) 1.09 mmol/L 1.12-1.27 L pH, Blood (test code = 08280-9) 7.42 Lab Interpretation (test code = Abnormal 31762-5) [facility], [id number] 06:32:00 Test Item Value Reference Range Interpretation Comments CALCIUM IONIZED (BEAKER) (test 1.09 mmol/L 1.12-1.27 L code = 698) PH, BLOOD (BEAKER) (test code = 7.42 1810) CBC with platelet count + automated [id number] 04:38:00 Test Item Value Reference Range Interpretation Comments WBC (test code = 6690-2) 8.8 See_Comment [A utomated message] The system [employer] generated this result transmitted ref erence range: 3.5 - 10 .5 K/L. The refe rence range was not u sed to interpret this result as normal/abnor mal. RBC (test code = 789-8) 2.72 See_Comment L [Au tomated message] The system [employer] generated this result transmitted ref erence range: 4.63 - 6 .08 M/L. The refe rence range was not u sed to interpret this result as normal/abnor mal. MCHC (test code = 786-4) 32.2 See_Comment L [A utomated message] The system [employer] generated this result transmitted ref erence range: [...] See_Comment [Aut omated message] 777-3) The system [employer] generated this result transmitted ref erence range: 150 - 45 0 K/CU MM. The referen ce range was not u sed to interpret this result as normal/abnor mal. MPV (test code = 9.9 fL 9.4-12.4 76875-9) nRBC (test code = 413) 0 See_Comment [Aut omated message] The system [employer] generated this result transmitted ref erence range: [...] H [Aut omated message] 670) The system [employer] generated this result transmitted ref erence range: 1.78 - 5 .38 K/L. The refe rence range was not u sed to interpret this result as normal/abnor mal. # Lymphs (test code = 0.63 See_Comment L [Auto mated message] 414) The system [employer] generated this result transmitted ref erence range: 1.32 - 3 .57 K/L. The refe rence range was not u sed to interpret this result as normal/abnor mal. # Monos (test code = 0.76 See_Comment [Autom ated message] 415) The system [employer] generated this result transmitted ref erence range: 0.30 - 0 .82 K/L. The refe rence range was not u sed to interpret this result as normal/abnor mal. # Eos (test code = 416) 0.44 See_Comment [Au tomated message] The system [employer] generated this result transmitted ref erence range: 0.04 - 0 .54 K/L. The refe rence range was not u sed to interpret this result as normal/abnor mal. # Baso (test code = 417) 0.07 See_Comment [A utomated message] The system [employer] generated this result transmitted ref erence range: 0.01 - 0 .08 K/L. The refe rence range was not u sed to interpret this result as normal/abnor mal. Immature 1 % 0-1 Granulocytes-Relative (test code = 2801) Lab Interpretation (test Abnormal code = 40561-9) [facility] with platelet count + automated [id number] 04:38:00 Test Item Value Reference Range Interpretation Comments WBC (test code = 6690-2) 8.8 See_Comment [A utomated message] The system [employer] generated this result transmitted ref erence range: 3.5 - 10 .5 K/L. The refe rence range was not u sed to interpret this result as normal/abnor mal. RBC (test code = 789-8) 2.72 See_Comment L [Au tomated message] The system [employer] generated this result transmitted ref erence range: 4.63 - 6 .08 M/L. The refe rence range was not u sed to interpret this result as normal/abnor mal. MCHC (test code = 786-4) 32.2 See_Comment L [A utomated message] The system [employer] generated this result transmitted ref erence range: [...] See_Comment [Aut omated message] 777-3) The system [employer] generated this result transmitted ref erence range: 150 - 45 0 K/CU MM. The referen ce range was not u sed to interpret this result as normal/abnor mal. MPV (test code = 9.9 fL 9.4-12.4 53189-3) nRBC (test code = 413) 0 See_Comment [Aut omated message] The system [employer] generated this result transmitted ref erence range: [...] H [Aut omated message] 670) The system [employer] generated this result transmitted ref erence range: 1.78 - 5 .38 K/L. The refe rence range was not u sed to interpret this result as normal/abnor mal. # Lymphs (test code = 0.63 See_Comment L [Auto mated message] 414) The system [employer] generated this result transmitted ref erence range: 1.32 - 3 .57 K/L. The refe rence range was not u sed to interpret this result as normal/abnor mal. # Monos (test code = 0.76 See_Comment [Autom ated message] 415) The system [employer] generated this result transmitted ref erence range: 0.30 - 0 .82 K/L. The refe rence range was not u sed to interpret this result as normal/abnor mal. # Eos (test code = 416) 0.44 See_Comment [Au tomated message] The system [employer] generated this result transmitted ref erence range: 0.04 - 0 .54 K/L. The refe rence range was not u sed to interpret this result as normal/abnor mal. # Baso (test code = 417) 0.07 See_Comment [A utomated message] The system [employer] generated this result transmitted ref erence range: 0.01 - 0 .08 K/L. The refe rence range was not u sed to interpret this result as normal/abnor mal. Immature 1 % 0-1 Granulocytes-Relative (test code = 2801) Lab Interpretation (test Abnormal code = 14506-7) [facility] with platelet count + automated [id number] 04:38:00 Test Item Value Reference Range Interpretation Comments WBC (test code = 6690-2) 8.8 See_Comment [A utomated message] The system [employer] generated this result transmitted ref erence range: 3.5 - 10 .5 K/L. The refe rence range was not u sed to interpret this result as normal/abnor mal. RBC (test code = 789-8) 2.72 See_Comment L [Au tomated message] The system [employer] generated this result transmitted ref erence range: 4.63 - 6 .08 M/L. The refe rence range was not u sed to interpret this result as normal/abnor mal. MCHC (test code = 786-4) 32.2 See_Comment L [A utomated message] The system [employer] generated this result transmitted ref erence range: [...] code = 233 See_Comment [Aut omated message] 257-3) The system [employer] generated this result transmitted ref erence range: 150 - 45 0 K/CU MM. The referen ce range was not u sed to interpret this result as normal/abnor mal. MPV (test code = 9.9 fL 9.4-12.4 82965-5) nRBC (test code = 413) 0 See_Comment [Aut omated message] The system [employer] generated this result transmitted ref erence range: [...] H [Aut omated message] 670) The system [employer] generated this result transmitted ref erence range: 1.78 - 5 .38 K/L. The refe rence range was not u sed to interpret this result as normal/abnor mal. # Lymphs (test code = 0.63 See_Comment L [Auto mated message] 414) The system [employer] generated this result transmitted ref erence range: 1.32 - 3 .57 K/L. The refe rence range was not u sed to interpret this result as normal/abnor mal. # Monos (test code = 0.76 See_Comment [Autom ated message] 415) The system [employer] generated this result transmitted ref erence range: 0.30 - 0 .82 K/L. The refe rence range was not u sed to interpret this result as normal/abnor mal. # Eos (test code = 416) 0.44 See_Comment [Au tomated message] The system [employer] generated this result transmitted ref erence range: 0.04 - 0 .54 K/L. The refe rence range was not u sed to interpret this result as normal/abnor mal. # Baso (test code = 417) 0.07 See_Comment [A utomated message] The system [employer] generated this result transmitted ref erence range: 0.01 - 0 .08 K/L. The refe rence range was not u sed to interpret this result as normal/abnor mal. Immature 1 % 0-1 Granulocytes-Relative (test code = 2801) Lab Interpretation (test Abnormal code = 54313-3) [facility] W/PLT COUNT & AUTO [id number] 04:38:00 Test Item Value Reference Range Interpretation [...] (BEAKER) (test code = 2801) Basic Metabolic [id number] 04:28:00 Test Item Value Reference Range Interpretation Comments Sodium (test code = 138 meq/L 782-051 5715-2) Potassium (test code = 4.4 meq/L 3.5-5.1 2823-3) Chloride (test code = 104 meq/L 98-107 2075-0) CO2 (test code = 24 meq/L -2027-) BUN (test code = 40 mg/dL 7-21 H 3094-0) Creatinine (test code 4.27 mg/dL 0.57-1.25 H = 2160-0) Glucose (test code = 94 mg/dL 70-105 2345-7) Calcium (test code = 8.3 mg/dL 8.4-10.2 L 19226-5) EGFR (test code = 19 mL/min/1.73 [place] [address]-3) NOT ACCURATE CREATININE CLEARANCE IN PREDICTING GLOMERULAR FILTRATION RATE . ESTIMATED GFR I S NOT APPLICABLE FOR DIALYSIS PATIENTS. CARLEY (test code = CARLEY) Brick Kil[employer] Worker ID - VALDEZ M Lab Interpretation Abnormal (test code = 17403-3) [facility] Metabolic [id number] 04:28:00 Test Item Value Reference Range Interpretation Comments Sodium (test code = 138 meq/L 483-521 1904-2) Potassium (test code = 4.4 meq/L 3.5-5.1 2823-3) Chloride (test code = 104 meq/L 98-107 2075-0) CO2 (test code = 24 meq/L -9) BUN (test code = 40 mg/dL 7-21 H 3094-0) Creatinine (test code 4.27 mg/dL 0.57-1.25 H = 2160-0) Glucose (test code = 94 mg/dL 70-105 2345-7) Calcium (test code = 8.3 mg/dL 8.4-10.2 L 10966-8) EGFR (test code = 19 mL/min/1.[place] [address]-5) NOT ACCURATE CREATININE CLEARANCE IN PREDICTING GLOMERULAR FILTRATION RATE . ESTIMATED GFR I S NOT APPLICABLE FOR DIALYSIS PATIENTS. CARLEY (test code = CARLEY) Brick Kiln Worker ID - VALDEZ M Lab Interpretation Abnormal (test code = 30856-8) [facility] Metabolic [id number] 04:28:00 Test Item Value Reference Range Interpretation Comments Sodium (test code = 138 meq/L 427-949 5049-2) Potassium (test code = 4.4 meq/L 3.5-5.1 2823-3) Chloride (test code = 104 meq/L 98-107 5-0) CO2 (test code = 24 meq/L 22-29 8-9) BUN (test code = 40 mg/dL 7-21 H 3094-0) Creatinine (test code 4.27 mg/dL 0.57-1.25 H = 2160-0) Glucose (test code = 94 mg/dL 70-105 2345-7) Calcium (test code = 8.3 mg/dL 8.4-10.2 L 00580-8) EGFR (test code = 19 mL/min/1.[place] [address]-5) NOT ACCURATE CREATININE CLEARANCE IN PREDICTING GLOMERULAR FILTRATION RATE . ESTIMATED GFR I S NOT APPLICABLE FOR DIALYSIS PATIENTS. CARLEY (test code = CARLEY) Brick Kiln Worker ID - VALDEZ M Lab Interpretation Abnormal (test code = 36925-1) [facility] METABOLIC [id number] 04:28:00 Test Item Value Reference Range Interpretation [...] S NOT APPLICABLE FOR DIALYSIS PATIEN TS. Brick Kiln [facility]28 04:14:00 Test Item Value Reference Range Interpretation Comments Magnesium (test code = 2.0 mg/dL 1.6-2.6 25894-3) CARLEY (test code = CARLEY) Brick Kiln Worker ID - [facility] Lab Interpretation (test Normal code = 85097-1) [facility]2021-08-26 04:14:00 Test Item Value Reference Range Interpretation Comments Phosphorus (test code = 4.6 mg/dL 2.3-4.7 2777-1) CARLEY (test code = CARLEY) Brick Kiln Worker ID - [facility] Lab Interpretation (test Normal code = 43997-1) [facility] 04:14[facility]00 Test Item Value Reference Range Interpretation Comments Magnesium (test code = 2.0 mg/dL 1.6-2.6 00155-5) CARLEY (test code = CARLEY) Brick Kiln Worker ID - [facility] Lab Interpretation (test Normal code = 21135-5) [facility]2021-08-26 04:14:00 Test Item Value Reference Range Interpretation Comments Phosphorus (test code = 4.6 mg/dL 2.3-4.7 2777-1) CARLEY (test code = CARLEY) Brick Kiln Worker ID - [facility] Lab Interpretation (test Normal code = 83926-2) [facility] 04:14:00 Test Item Value Reference Range Interpretation Comments Magnesium (test code = 2.0 mg/dL 1.6-2.6 07924-3) CARLEY (test code = CARLEY) Brick Kiln Worker ID - [facility] Lab Interpretation (test Normal code = 31995-6) [facility]2021-08-26 04:14:00 Test Item Value Reference Range Interpretation Comments Phosphorus (test code = 4.6 mg/dL 2.3-4.7 2777-1) CARLEY (test code = CARLEY) Brick Kiln Worker ID Doretha KELLOGG M Lab Interpretation (test Normal code = 23027-2) [facility] 04:14:00 Test Item Value Reference Range Interpretation Comments MAGNESIUM (BEAKER) (test code = 2.0 mg/dL 1.6-2.6 627) Brick Kiln Worker ID - VALDEZ [id number] 04:14:00 Test Item Value Reference Range Interpretation Comments PHOSPHORUS (BEAKER) (test code = 4.6 mg/dL 2.3-4.7 604) Brick Kiln Worker ID - VALDEZ [facility], [id number] 04:12:00 Test Item Value Reference Range Interpretation Comments PTH (test code = 2731-8) 237.8 pg/mL 8.5-72.5 H CARLEY (test code = CARLEY) Brick Kiln Worker SHELBI KELLOGG Lab Interpretation (test Abnormal code = 08848-7) [facility], [id number] 04:12:00 Test Item Value Reference Range Interpretation Comments PTH (test code = 2731-8) 237.8 pg/mL 8.5-72.5 H CARLEY (test code = CARLEY) Brick Kiln Worker SHELBI KELLOGG Lab Interpretation (test Abnormal code = 56242-5) [facility], [id number] 04:12:00 Test Item Value Reference Range Interpretation Comments PTH (test code = 2731-8) 237.8 pg/mL 8.5-72.5 H CARLEY (test code = CARLEY) Brick Kiln Worker SHELBI KELLOGG Lab Interpretation (test Abnormal code = 04789-0) [facility], [id number] 04:12:00 Test Item Value Reference Range Interpretation Comments PARATHYROID HORMONE INTACT 237.8 pg/mL 8.5-72.5 H (BEAKER) (test code = 577) Brick Kiln Worker SHELBI Chen Prothrombin time/INR while on [id number] 03:58:00 Test Item Value Reference Interpretation Comments Range Protime (test code = 19.8 See_Comment H [Autom ated 5902-2) message] The system which generated this result transmitted reference range : 11.9 - 14.2 seconds. The reference range was not used to interpret this result as normal/abnormal . INR (test code = 1.71 See_Comment [Automated [employer]-6) message] The system which generated this result [...] valves. Lab Interpretation Abnormal (test code = 17150-3) [facility] Prothrombin time/INR while on warfarin 2021-02-02 03:58:00 Test Item Value Reference Interpretation Comments Range Protime (test code = 19.8 See_Comment H [Autom ated 5902-2) message] The system which generated this result transmitted reference range : 11.9 - 14.2 seconds. The reference range was not used to interpret this result as normal/abnormal . INR (test code = 1.71 See_Comment [Automated [employer]-6) message] The system which generated this result [...] valves. Lab Interpretation Abnormal (test code = 83706-6) [facility] Prothrombin time/INR while on warfarin 2021-02-02 03:58:00 [...] valves. Lab Interpretation Abnormal (test code = 53667-2) [facility] HospitalPROTHROMBIN TIME/[id number] 03:58:00 Test Item Value Reference Range Interpretation Comments PROTIME (BEAKER) 19.8 seconds 11.9-14.2 H (test code = 759) INR (BEAKER) (test 1.71 See_Comment [Automat ed message] code = 370) The system [employer] generated this result transmitted ref erence range: <=5.90. The reference range was not used to int erpret this result as normal/abnormal . RECOMMENDED COUMADIN/WARFARIN INR THERAPY RANGESSTANDARD DOSE: 2.0 - 3.0 Includes: PROPHYLAXIS forvenous thrombosis, systemic embolization; TREATMENT for venous thrombosis and/or pulmonary embolus.HIGH RISK: Target INR is 2.5-3.5 for patients with mechanical heart valves.POCT-GLUCOSE [id number] 03:56:00 Test Item Value Reference Range Interpretation Comments POC-GLUCOSE METER 94 mg/dL 70-110 : TESTED A T [facility] 6720 ([employer]) (test code = Language Learning Class [facility], 153) 36573: Brick Kiln Worker/Techni won ID = [id number] for Comp uesto, Ana Mariazacaseyo POCT-GLUCOSE [id number] 00:10:00 Test Item Value Reference Range Interpretation Comments POC-GLUCOSE METER 83 mg/dL 70-110 : TESTED A T [facility] 6720 ([employer]) (test code = Language Learning Class [facility], 153) 68364: Brick Kiln Worker/Techni won ID = [id number] for Brody Ovalle POCT-GLUCOSE [id number] 15:37:00 Test Item Value Reference Range Interpretation Comments POC-GLUCOSE METER 73 mg/dL 70-110 : TESTED A T [facility] 6720 ([employer]) (test code = Language Learning Class [facility], 1538) 65956: Brick Kiln Worker/Techni won ID = [id number] for Atwo od (V), Anurag POCT-GLUCOSE [id number] 14:59:00 Test Item Value Reference Range Interpretation Comments POC-GLUCOSE METER 68 mg/dL 70-110 L : TESTED A T [facility] 6720 (BEAKER) (test code = NORM Tenorio [facility], 1538) 78120: Brick Kiln Worker/Techni won ID = [id number] for Atwo od (V), Anurag CT, CHEST, WITHOUT [id number] 14:15:00ICU attending Dr. SteveUnlisted Reason for Exam - Click Yes and Enter Reason Below->YesUnlisted Reason for Exam->Evaluate pleural effusion [facility] 1975 Sex: [...] MDReport Verified Date/Time: 02/01/2021 14:15:18 Reading Location: [facility] C013Y CT Body Reading Room CT chest without IV jegetjpk9566-34-03 14:15:00Interface, External Ris In - 02/01/2021 2:17 [...] MDReport Verified Date/Time: 02/01/2021 14:15:18 Reading Location: [facility] C013Y CT [facility] 2021-02-01 14:15:00Interface, [...] MDReport Verified Date/Time: 02/01/2021 14:15:18 Reading Location: [facility] C013Y CT [facility] 2021-02-01 14:15:00Interface, [...] MDReport Verified Date/Time: 02/01/2021 14:15:18 Reading Location: [facility] B1 C013Y CT Body [facility] [id number] 11:48:00 Test Item Value Reference Range Interpretation Comments POC-GLUCOSE METER 64 mg/dL 70-110 L : TESTED A T [facility] 6720 (BEAKER) (test code = NORM [facility], 1538) 06165: Brick Kiln Worker/Techni won ID = [id number] for Edwin gardner (contract)Terence RAD, CHEST, 1 VIEW, NON [id number] 07:53:00Reason for exam:- >intubatedShould this be performed at the bedside?->Yes [facility] : 1975 Sex: [...] Re Cantu Verified Date/Time: 02/01/2021 07:53:28 Reading Location:[facility] Radiology Reading Room CALCIUM, [id number] 05:25:00 Test Item Value Reference Range Interpretation Comments CALCIUM IONIZED (BEAKER) (test 1.09 mmol/L 1.12-1.27 L code = 698) PH, BLOOD (BEAKER) (test code = 7.44 1810) BASIC METABOLIC [id number] 05:19:00 Test Item Value Reference Range Interpretation [...] S NOT APPLICABLE FOR DIALYSIS PATIEN TS. Brick Kiln Worker ID - PIRAFY [id number] 05:13:00 Test Item Value Reference Range Interpretation Comments MAGNESIUM (BEAKER) (test code = 2.0 mg/dL 1.6-2.6 627) Brick Kiln Worker ID - LINA [id number] 05:13:00 Test Item Value Reference Range Interpretation Comments PHOSPHORUS (BEAKER) (test code = 4.9 mg/dL 2.3-4.7 H 604) Brick Kiln Worker ID - LINA LPROTHROMBIN TIME/[id number] 04:50:00 Test Item Value Reference Range Interpretation Comments PROTIME (BEAKER) 17.7 seconds 11.9-14.2 H (test code = 759) INR (BEAKER) (test 1.48 See_Comment [Automat ed message] code = 370) The system [employer] generated this result transmitted ref erence range: [...] PERCENT (BEAKER) (test code = 2801) POCT-GLUCOSE [id number] 01:16:00 Test Item Value Reference Range Interpretation Comments POC-GLUCOSE METER 79 mg/dL 70-110 : TESTED A T [facility] 6720 (BEAKER) (test code = [facility], 1538) 89634: Brick Kiln Worker/Techni won ID = [id number] for MUSE BE, CRESCENCIO POCT-GLUCOSE [id number] 22:03:00 Test Item Value Reference Range Interpretation Comments POC-GLUCOSE METER 83 mg/dL 70-110 : TESTED A T [facility] 6720 (BEAKER) (test code = [facility] [employer] [facility], 1538) 15080: Brick Kiln Worker/Techni won ID = [id number] for MUSE BE, CRESCENCIO Hemoglobin and [id number] 17:25:00 Test Item Value Reference Range Interpretation [...] = 4544-3) CARLEY (test code = CARLEY) Brick Kiln Worker ID - [id number] Lab Interpretation Abnormal (test code = 04237-8) [facility] HospitalHem[facility] and [id number] 17:25:00 Test Item Value Reference Range Interpretation [...] = 4544-3) CARLEY (test code = CARLEY) Brick Kiln Worker ID - [id number] Lab Interpretation Abnormal (test code = 33368-2) [facility] HospitalHem[facility] and [id number] 17:25:00 Test Item Value Reference Range Interpretation [...] = 4544-3) CARLEY (test code = CARLEY) Brick Kiln Worker ID - [id number] Lab Interpretation Abnormal (test code = 44499-8) [facility] HospitalHEMOGLOBIN AND [id number] 17:25:00 Test Item Value Reference Range Interpretation Comments HEMOGLOBIN (BEAKER) (test code = 7.5 GM/DL 13.7-17.5 L 410) HEMATOCRIT (BEAKER) (test code = 23.1 % 40.1-51.0 L 411) Brick Kiln Worker ID - [id number]-GLUCOSE [id number] 11:36:00 Test Item Value Reference Range Interpretation Comments POC-GLUCOSE METER 105 mg/dL 70-110 : TESTED A T [facility] 6720 (BEAKER) (test code = [facility] [employer] [facility], 1538) 25365: Brick Kiln Worker/Techni won ID = [id number] for RONAL PEREZ POCT-GLUCOSE [id number] 07:26:00 Test Item Value Reference Range Interpretation Comments POC-GLUCOSE METER 69 mg/dL 70-110 L : TESTED A T [facility] 6720 (BEAKER) (test code = Language Learning Class [facility], 1538) 19198: Brick Kiln Worker/Techni won ID = [id number] for RONAL BROCK BASIC METABOLIC [id number] 05:40:00 Test Item Value Reference Range Interpretation [...] S NOT APPLICABLE FOR DIALYSIS PATIEN TS. Brick Kiln Worker ID - LINA [id number] 05:24:00 Test Item Value Reference Range Interpretation Comments MAGNESIUM (BEAKER) (test code = 2.0 mg/dL 1.6-2.6 627) Brick Kiln Worker ID - LINA [id number] 05:24:00 Test Item Value Reference Range Interpretation Comments PHOSPHORUS (BEAKER) (test code = 4.1 mg/dL 2.3-4.7 604) [employer] Worker ID - LINA LCBC W/PLT COUNT & AUTO [id number] 05:04:00 Test Item Value Reference Range Interpretation [...] (BEAKER) (test code = 2801) Lactic Acid, [id number] 04:53:00 Test Item Value Reference Range Interpretation Comments Lactate, Art (test code = 0.4 mmol/L 0.5-2.2 L 2874) CARLEY (test code = CARLEY) [employer] Worker ID - PIAYA L Lab Interpretation (test Abnormal code = 84264-8) [facility] HospitalL[facility] Acid, [id number] 04:53:00 Test Item Value Reference Range Interpretation Comments Lactate, Art (test code = 0.4 mmol/L 0.5-2.2 L 2874) CARLEY (test code = CARLEY) [employer] Worker ID - PIAYA L Lab Interpretation (test Abnormal code = 03832-5) [facility] HospitalLactic Acid, [id number] 04:53:00 Test Item Value Reference Range Interpretation Comments Lactate, Art (test code = 0.4 mmol/L 0.5-2.2 L 2874) CARLEY (test code = CARLEY) [employer] Worker ID - PIAYA L Lab Interpretation (test Abnormal code = 65025-8) [facility] HospitalLACTIC ACID, [id number] 04:53:00 Test Item Value Reference Range Interpretation Comments LACTATE BLOOD ARTERIAL (2) 0.4 mmol/L 0.5-2.2 L (BEAKER) (test code = 2874) [employer] Worker ID - LINA MartinezYcHRB7015-93-88 04:49:00 Test Item Value Reference Range Interpretation Comments PTT (test code = 40.1 See_Comment H [Automated message] 17219-0) The system [employer] generated this result transmitted ref erence range: 22.5 - 3 6.0 seconds. The reference range was not used to int erpret this result as normal/abnormal . Lab Interpretation (test Abnormal code = 24224-2) [facility] HospitalPT/[id number] 04:49:00 Test Item Value Reference Interpretation Comments Range Protime (test code = 17.9 See_Comment H [Autom ated 5902-2) message] The system which generated this result transmitted reference range : 11.9 - 14.2 seconds. The reference range was not used to interpret this result as normal/abnormal . INR (test code = 1.50 See_Comment [Automated 7511-6) message] The system which generated this result transmitted reference range : <=5.90. The reference range was not used to interpret this result as normal/abnormal . PTT (test code = 40.1 See_Comment H [Automated 96089-5) message] The system which generated this result [...] valves. Lab Interpretation Abnormal (test code = 67794-3) [facility] HospitalaPTT2021-08-[facility] 04:49:00 Test Item Value Reference Range Interpretation Comments PTT (test code = 40.1 See_Comment H [Automated message] 52297-2) The system [employer] generated this result transmitted ref erence range: 22.5 - 3 6.0 seconds. The reference range was not used to int erpret this result as normal/abnormal . Lab Interpretation (test Abnormal code = 24554-8) [facility] HospitalPT/[id number] 04:49:00 Test Item Value Reference Interpretation Comments Range Protime (test code = 17.9 See_Comment H [Autom ated 5902-2) message] The system which generated this result transmitted reference range : 11.9 - 14.2 seconds. The reference range was not used to interpret this result as normal/abnormal . INR (test code = 1.50 See_Comment [Automated 2501-6) message] The system which generated this result transmitted reference range : <=5.90. The reference range was not used to interpret this result as normal/abnormal . PTT (test code = 40.1 See_Comment H [Automated 50826-1) message] The system which generated this result [...] valves. Lab Interpretation Abnormal (test code = 29861-1) [facility] 04:49:00 Test Item Value Reference Range Interpretation Comments PTT (test code = 40.1 See_Comment H [Automated message] 60235-6) The system [employer] generated this result transmitted ref erence range: 22.5 - 3 6.0 seconds. The reference range was not used to int erpret this result as normal/abnormal . Lab Interpretation (test Abnormal code = 59381-1) [facility] HospitalPT/[id number] 04:49:00 Test Item Value Reference Interpretation Comments Range Protime (test code = 17.9 See_Comment H [Autom ated 5902-2) message] The system which generated this result transmitted reference range : 11.9 - 14.2 seconds. The reference range was not used to interpret this result as normal/abnormal . INR (test code = 1.50 See_Comment [Automated 3091-6) message] The system which generated this result transmitted reference range : <=5.90. The reference range was not used to interpret this result as normal/abnormal . PTT (test code = 40.1 See_Comment H [Automated 80218-3) message] The system which generated this result [...] valves. Lab Interpretation Abnormal (test code = 96760-9) [facility] HospitalAPTT2021-08-[facility] 04:49:00 Test Item Value Reference Range Interpretation Comments PARTIAL THROMBOPLASTIN TIME 40.1 seconds 22.5-36.0 H (BEAKER) (test code = 760) PT/[id number] 04:49:00 Test Item Value Reference Range Interpretation [...] 2.5-3.5 for patients with mechanical heart valves.PROTHROMBIN TIME/[id number] 04:48:00 Test Item Value Reference Range Interpretation [...] for patients with mechanical heart valves.Blood gas, [id number] 04:44:00 Test Item Value Reference Range Interpretation Comments pH, Arterial (test code 7.49 7.35-7.45 H = 2744-1) pCO2, Arterial (test 37 See_Comment [Autom ated message] code = 2019-01) The system [facility] generated this result transmit ari reference range : 35 - 45 mm Hg. The reference range was not used to interpret this result as normal/abnormal . pO2, Arterial (test 130 See_Comment H [Automa ari message] code = 2703-7) The system [facility] generated this result transmit ari reference [...] 35 Lab Interpretation Abnormal (test code = 19715-5) [facility] HospitalBlood gas, [id number] 04:44:00 Test Item Value Reference Range Interpretation Comments pH, Arterial (test code 7.49 7.35-7.45 H = 2744-1) pCO2, Arterial (test 37 See_Comment [Autom ated message] code = 2019-01) The system [facility] generated this result transmit ari reference range : 35 - 45 mm Hg. The reference range was not used to interpret this result as normal/abnormal . pO2, Arterial (test 130 See_Comment H [Automa ari message] code = 2703-7) The system [facility] generated this result transmit ari reference [...] 35 Lab Interpretation Abnormal (test code = 16577-3) [facility] HospitalBlood gas, [id number] 04:44:00 Test Item Value Reference Range Interpretation Comments pH, Arterial (test code 7.49 7.35-7.45 H = 2744-1) pCO2, Arterial (test 37 See_Comment [Autom ated message] code = 2019-8) The system [employer] generated this result transmit ari reference range : 35 - 45 mm Hg. The reference range was not used to interpret this result as normal/abnormal . pO2, Arterial (test 130 See_Comment H [Automa ari message] code = 2703-7) The system [employer] generated this result transmit ari reference range [...] 35 Lab Interpretation Abnormal (test code = 65226-8) [facility] GAS, [id number] 04:44:00 Test Item Value Reference Range Interpretation [...] (BEAKER) (test code = 1819) 35.0 CALCIUM, [id number] 04:44:00 Test Item Value Reference Range Interpretation Comments CALCIUM IONIZED (BEAKER) (test 1.11 mmol/L 1.12-1.27 L code = 698) PH, BLOOD (BEAKER) (test code = 7.49 1810) RAD, CHEST, 1 VIEW, NON [id number] 04:44:00Reason for exam:- >intubatedShould this be performed at the bedside?->Yes [facility] 1975 Sex: [...] MDReport Verified Date/Time: 01/31/2021 04:44:53 Prepare Leuko-Red [id number] 23:54:00 Test Item Value Reference Range Interpretation Comments CROSSMATCH (test code = 2264) COMPATIBLE Unit ABO (test code = O Neg 2529246) UNIT NUMBER (test code = [id number] 934-0) Status (test code = 5679270) TX_TIMEINCHART Blood Bank Product (test code RED BLOOD CELLS = 2263) PRODUCT CODE (test code = C1630S64 933-2) [facility] HospitalPrepare Leuko-Red [id number] 23:54:00 Test Item Value Reference Range Interpretation Comments CROSSMATCH (test code = 2264) COMPATIBLE Unit ABO (test code = O Neg 0090439) UNIT NUMBER (test code = [id number] 934-0) Status (test code = 3366289) TX_TIMEINCHART Blood Bank Product (test code RED BLOOD CELLS = 2263) PRODUCT CODE (test code = H1845O50 933-2) [facility] HospitalPrepare Leuko-Red [id number] 23:54:00 Test Item Value Reference Range Interpretation Comments CROSSMATCH (test code = 2264) COMPATIBLE Unit ABO (test code = O Neg 6790332) UNIT NUMBER (test code = [id number] 934-0) Status (test code = 1452387) TX_TIMEINCHART Blood Bank Product (test code RED BLOOD CELLS = 2263) PRODUCT CODE (test code = K0314N79 933-2) [facility] HospitalHGB/HCT (H&H)-Stat [id number] 21:11:00 Test Item Value Reference Range Interpretation Comments Hemoglobin (test code = 7.8 See_Comment L [Au tomated message] 786-4) The system [employer] generated this result transmitted ref erence range: 13.0 - 1 6.8 GM/DL. The refe rence range was not u sed to interpret this result as normal/abnor mal. Hematocrit (test code = 23.0 % 40-50 L 4544-3) Lab Interpretation (test Abnormal code = 94887-0) [facility] HospitalHGB/HCT (H&H)-Stat [id number] 21:11:00 Test Item Value Reference Range Interpretation Comments Hemoglobin (test code = 7.8 See_Comment L [Au tomated message] 786-4) The system [employer] generated this result transmitted ref erence range: 13.0 - 1 6.8 GM/DL. The refe rence range was not u sed to interpret this result as normal/abnor mal. Hematocrit (test code = 23.0 % 40-50 L 4544-3) Lab Interpretation (test Abnormal code = 11026-1) [facility] HospitalHGB/HCT (H&H)-Stat [id number] 21:11:00 Test Item Value Reference Range Interpretation Comments Hemoglobin (test code = 7.8 See_Comment L [Au tomated message] 786-4) The system [employer] generated this result transmitted ref erence range: 13.0 - 1 6.8 GM/DL. The refe rence range was not u sed to interpret this result as normal/abnor mal. Hematocrit (test code = 23.0 % 40-50 L 4544-3) Lab Interpretation (test Abnormal code = 87258-4) [facility] HospitalBLOOD GAS, [id number] 21:11:00 Test Item Value Reference Range Interpretation [...] = 1819) 35.0 HGB/HCT (H&H) - STAT [id number] 21:11:00 Test Item Value Reference Range Interpretation Comments HEMOGLOBIN (BEAKER) (test code = 7.8 GM/DL 13.0-16.8 L 410) HEMATOCRIT (BEAKER) (test code = 23.0 % 40.0-50.0 L 411) Glucose-Stat [id number] 21:10:00 Test Item Value Reference Range Interpretation Comments Glucose (test code = 2345-7) 106 mg/dL 70-110 Lab Interpretation (test code = Normal 65325-8) [facility]Stat [id number] 21:10:00 Test Item Value Reference Range Interpretation Comments Sodium (test code = 2951-2) 135 meq/L 136-145 L Lab Interpretation (test code = Abnormal 80231-0) [facility] HospitalPotassium-Stat [id number] 21:10:00 Test Item Value Reference Range Interpretation Comments Potassium (test code = 2823-3) 3.8 meq/L 3.6-5.5 Lab Interpretation (test code = Normal 90137-7) [facility] HospitalGlucose-Stat [id number] 21:10:00 Test Item Value Reference Range Interpretation Comments Glucose (test code = 2345-7) 106 mg/dL 70-110 Lab Interpretation (test code = Normal 78369-0) [facility] Na-Stat [id number] 21:10:00 Test Item Value Reference Range Interpretation Comments Sodium (test code = 2951-2) 135 meq/L 136-145 L Lab Interpretation (test code = Abnormal 54059-9) [facility] HospitalPotassium-Stat [id number] 21:10:00 Test Item Value Reference Range Interpretation Comments Potassium (test code = 2823-3) 3.8 meq/L 3.6-5.5 Lab Interpretation (test code = Normal 90329-2) [facility] HospitalGlucose-Stat [id number] 21:10:00 Test Item Value Reference Range Interpretation Comments Glucose (test code = 2345-7) 106 mg/dL 70-110 Lab Interpretation (test code = Normal 55382-7) [facility] Na-Stat [id number] 21:10:00 Test Item Value Reference Range Interpretation Comments Sodium (test code = 2951-2) 135 meq/L 136-145 L Lab Interpretation (test code = Abnormal 40064-0) [facility] HospitalPotassium-Stat [id number] 21:10:00 Test Item Value Reference Range Interpretation Comments Potassium (test code = 2823-3) 3.8 meq/L 3.6-5.5 Lab Interpretation (test code = Normal 38428-5) [facility] HospitalGLUCOSE-STAT [id number] 21:10:00 Test Item Value Reference Range Interpretation Comments GLUCOSE RANDOM (BEAKER) (test code 106 mg/dL 70-110 = 652) SODIUM NA-STAT [id number] 21:10:00 Test Item Value Reference Range Interpretation Comments SODIUM (BEAKER) (test code = 381) 135 meq/L 136-145 L POTASSIUM-STAT [id number] 21:10:00 Test Item Value Reference Range Interpretation Comments POTASSIUM (BEAKER) (test code = 3.8 meq/L 3.6-5.5 379) BASIC METABOLIC [id number] 19:47:00 Test Item Value Reference Range Interpretation [...] S NOT APPLICABLE FOR DIALYSIS PATIEN TS. [employer] Worker ID - [id number] 19:47:00 Test Item Value Reference Range Interpretation Comments MAGNESIUM (BEAKER) (test code = 1.8 mg/dL 1.6-2.6 627) [employer] Worker ID - DBPROTHROMBIN TIME/[id number] 19:36:00 Test Item Value Reference Range Interpretation Comments PROTIME (BEAKER) 19.1 seconds 11.9-14.2 H (test code = 759) INR (BEAKER) (test 1.63 See_Comment [Automat ed message] code = 370) The system [employer] generated this result transmitted ref erence range: <=5.90. The reference range was not used to int erpret this result as normal/abnormal . RECOMMENDED COUMADIN/WARFARIN INR THERAPY RANGESSTANDARD DOSE: 2.0 - 3.0 Includes: PROPHYLAXIS forvenous thrombosis, systemic embolization; TREATMENT for venous thrombosis and/or pulmonary embolus.HIGH RISK: Target INR is 2.5-3.5 for patients with mechanical heart valves.CALCIUM, [id number] 19:26:00 Test Item Value Reference Range Interpretation Comments CALCIUM IONIZED (BEAKER) (test 1.15 mmol/L 1.12-1.27 code = 698) PH, BLOOD (BEAKER) (test code = 7.50 1810) POCT-GLUCOSE [id number] 18:48:00 Test Item Value Reference Range Interpretation Comments POC-GLUCOSE METER 94 mg/dL 70-110 : TESTED A T [facility] 6720 (BEAKER) (test code = [employer] [facility], 1538) [address]: [employer] Worker/Techni won ID = [id number] for Gianfranco s, Paige POCT-GLUCOSE [id number] 12:38:00 Test Item Value Reference Range Interpretation Comments POC-GLUCOSE METER 111 mg/dL 70-110 H : TESTED A T [facility] 6720 (BEAKER) (test code = [employer] [facility], 1538) [address]: [employer] Worker/Techni won ID = [id number] for Da vis, Paige PROTHROMBIN TIME/[id number] 12:37:00 Test Item Value Reference Range Interpretation Comments PROTIME (BEAKER) 19.6 seconds 11.9-14.2 H (test code = 759) INR (BEAKER) (test 1.68 See_Comment [Automat ed message] code = 370) The system [employer] generated this result transmitted ref erence range: <=5.90. The reference range was not used to int erpret this result as normal/abnormal . RECOMMENDED COUMADIN/WARFARIN INR THERAPY RANGESSTANDARD DOSE: 2.0 - 3.0 Includes: PROPHYLAXIS forvenous thrombosis, systemic embolization; TREATMENT for venous thrombosis and/or pulmonary embolus.HIGH RISK: Target INR is 2.5-3.5 for patients with mechanical heart valves.POCT-GLUCOSE [id number] 06:19:00 Test Item Value Reference Range Interpretation Comments POC-GLUCOSE METER 100 mg/dL 70-110 : TESTED A T [facility] 6720 (BEAKER) (test code = NORM [employer] [facility], 1538) 407[address]: [employer] Worker/Techni won ID = [id number] for VINOD CHAUDHARY BLOOD GAS, [id number] 05:07:00 Test Item Value Reference Range Interpretation [...] 1819) 60.0 RAD, CHEST, 1 VIEW, NON [id number] 04:36:00Reason for exam:- >intubatedShould this be performed at the bedside?->Yes [facility] 1975 Sex: [...] Warren Verified Date/Time: 01/30/2021 04:36:28 BASIC METABOLIC [id number] 02:59:00 Test Item Value Reference Range Interpretation [...] S NOT APPLICABLE FOR DIALYSIS PATIEN TS. [employer] Worker ID - [id number] 02:45:00 Test Item Value Reference Range Interpretation Comments MAGNESIUM (BEAKER) (test code = 2.1 mg/dL 1.6-2.6 627) [employer] Worker ID - [id number] 02:45:00 Test Item Value Reference Range Interpretation Comments PHOSPHORUS (BEAKER) (test code = 4.6 mg/dL 2.3-4.7 604) [employer] Worker ID - [id number] 02:42:00 Test Item Value Reference Range Interpretation Comments PARTIAL THROMBOPLASTIN TIME 44.4 seconds 22.5-36.0 H (BEAKER) (test code = 760) [id number] 02:42:00 Test Item Value Reference Range Interpretation Comments PROTIME (BEAKER) (test 20.9 seconds 11.9-14.2 H code = 759) INR (BEAKER) (test 1.83 See_Comment [Automat ed code = 370) message] The [employer] which generated this result transmitted reference [...] 2.5-3.5 for patients with mechanical heart valves.PROTHROMBIN TIME/[id number] 02:41:00 Test Item Value Reference Range Interpretation Comments PROTIME (BEAKER) 20.9 seconds 11.9-14.2 H (test code = 759) INR (BEAKER) (test 1.83 See_Comment [Automat ed message] code = 370) The system [employer] generated this result transmitted ref erence range: <=5.90. The reference range was not used to int erpret this result as normal/abnormal . RECOMMENDED COUMADIN/WARFARIN INR THERAPY RANGESSTANDARD DOSE: 2.0 - 3.0 Includes: PROPHYLAXIS forvenous thrombosis, systemic embolization; TREATMENT for venous thrombosis and/or pulmonary embolus.HIGH RISK: Target INR is 2.5-3.5 for patients with mechanical heart valves.LACTIC ACID, [id number] 02:40:00 Test Item Value Reference Range Interpretation Comments LACTATE BLOOD ARTERIAL (2) 0.6 mmol/L 0.5-2.2 (BEAKER) (test code = 2874) [employer] Worker ID - DBCALCIUM, [id number] 02:34:00 Test Item Value Reference Range Interpretation Comments CALCIUM IONIZED (BEAKER) (test 1.15 mmol/L 1.12-1.27 code = 698) PH, BLOOD (BEAKER) (test code = 7.47 1810) BLOOD GAS, [id number] 02:34:00 Test Item Value Reference Range Interpretation [...] 1819) 50.0 CBC W/PLT COUNT & AUTO [id number] 02:33:00 Test Item Value Reference Range Interpretation [...] (BEAKER) (test code = 2801) Oxygen saturation, [id number] 02:32:00 Test Item Value Reference Range Interpretation Comments O2 Saturation (Measured) (test code = 66.8 % 71465-2) [facility] HospitalOxygen saturation, [id number] 02:32:00 Test Item Value Reference Range Interpretation Comments O2 Saturation (Measured) (test code = 66.8 % 95307-0) [facility] HospitalOxygen saturation, [id number] 02:32:00 Test Item Value Reference Range Interpretation Comments O2 Saturation (Measured) (test code = 66.8 % 78917-3) [facility] HospitalOXYGEN SATURATION, [id number] 02:32:00 Test Item Value Reference Range Interpretation Comments O2 SATURATION (MEASURED) (BEAKER) 66.8 % (test code = 1455) CT, BRAIN, WITHOUT [id number] 02:20:00Unlisted Reason for Exam - Click Yes and Enter Reason Below->No [facility] : 1975 [...] Buck Warren MDReport Verified Date/Time: 01/30/2021 02:20:02 [facility] [place] [id number] 02:20:00Unlisted Reason for Exam - Click Yes and Enter Reason Below->YesUnlisted Reason for Exam->r/o m ycotic anuerysmCOLORADO [facility]IVER [facility]ENTERName: [facility] : 1975 Sex: [...] Buck Warren MDReport Verified Date/Time: 01/30/2021 02:20:02 [facility] [place] [id number] 02:20:00Interface, External Ris In - 01/30/2021 2:23 [...] CTA head:No intracranial aneurysm. Signed: Buck Warren [facility] Verified Date/Time: 01/30/2021 02:20:02 [facility] [id number] 02:20:00Interface, External Ris In - 01/30/2021 2:23 [...] CTA head:No intracranial aneurysm. Signed: Buck [facility] Verified Date/Time: 01/30/2021 02:20:02 [facility] CenterCT[facility] [id number] 02:20:00 Interface, External Ris In - 01/30/2021 [...] CTA head:No intracranial aneurysm. Signed: Buck Warren [facility] Verified Date/Time: 01/30/2021 02:20:02 [facility]CT [facility] IV [id number] 02:20:00Interface, External Ris In - 01/30/2021 2:23 [...] CTA head:No intracranial aneurysm. Signed: Buck Warren [facility] Verified Date/Time: 01/30/2021 02:20:02 [facility]CT[facility] [id number] 02:20:00Interface, External Ris In - 01/30/2021 2:23 [...] CTA head:No intracranial aneurysm. Signed: Buck Warren [facility] Verified Date/Time: 01/30/2021 02:20:02 [facility]CT [facility] without IV [id number] 02:20:00Interface, External Ris In - 01/30/2021 2:23 [...] [facility] Verified Date/Time: 01/30/2021 02:20:02 [facility]PO[facility] [id number] 23:30:00 Test Item Value Reference Range Interpretation Comments POC-GLUCOSE METER 107 mg/dL 70-110 : TESTED A T [facility] 6720 (BEAKER) (test code = NORM [employer] [facility], 1538) 97[address]: [employer] Worker/Techni won ID = [id number] for VINOD CHAUDHARY CBC W/PLT COUNT & AUTO [id number] 19:35:00 Test Item Value Reference Range Interpretation [...] PERCENT (BEAKER) (test code = 2801) POCT-GLUCOSE [id number] 18:16:00 Test Item Value Reference Range Interpretation Comments POC-GLUCOSE METER 99 mg/dL 70-110 : TESTED A T [facility] 6720 (BEAKER) (test code = NORM [facility], 1538) 186[address]: [employer] Worker/Techni won ID = [id number] for RONAL BROCK PROTHROMBIN TIME/[id number] 18:16:00 Test Item Value Reference Range Interpretation Comments PROTIME (BEAKER) 21.4 seconds 11.9-14.2 H (test code = 759) INR (BEAKER) (test 1.89 See_Comment [Automat ed message] code = 370) The system [employer] generated this result transmitted ref erence range: <=5.90. The reference range was not used to int erpret this result as normal/abnormal . RECOMMENDED COUMADIN/WARFARIN INR THERAPY RANGESSTANDARD DOSE: 2.0 - 3.0 Includes: PROPHYLAXIS forvenous thrombosis, systemic embolization; TREATMENT for venous thrombosis and/or pulmonary embolus.HIGH RISK: Target INR is 2.5-3.5 for patients with mechanical heart valves.PROTHROMBIN TIME/[id number] 15:23:00 Test Item Value Reference Range Interpretation Comments PROTIME (BEAKER) 21.5 seconds 11.9-14.2 H (test code = 759) INR (BEAKER) (test 1.90 See_Comment [Automat ed message] code = 370) The system [employer] generated this result transmitted ref erence range: <=5.90. The reference range was not used to int erpret this result as normal/abnormal . RECOMMENDED COUMADIN/WARFARIN INR THERAPY RANGESSTANDARD DOSE: 2.0 - 3.0 Includes: PROPHYLAXIS forvenous thrombosis, systemic embolization; TREATMENT for venous thrombosis and/or pulmonary embolus.HIGH RISK: Target INR is 2.5-3.5 for patients with mechanical heart valves.[id number] 15:23:00 Test Item Value Reference Range Interpretation Comments PARTIAL THROMBOPLASTIN TIME 52.7 seconds 22.5-36.0 H (BEAKER) (test code = 760) [facility], [id number] 14:38:00 Test Item Value Reference Range Interpretation Comments ABO Grouping (test O Anti-A 0, Anti-B 0, A1 4+, code = 2588) B 4+, Anti D 4+ . Typing as O positive due to multiple transfusions of O positive RBC due to O ne g RBC shortage. Rh Factor (test code = NEG 2589) [facility]AB[facility], [id number] 14:38:00 Test Item Value Reference Range Interpretation Comments ABO Grouping (test O Anti-A 0, Anti-B 0, A1 4+, code = 2588) B 4+, Anti D 4+ . Typing as O positive due to multiple transfusions of O positive RBC due to O ne g RBC shortage. Rh Factor (test code = NEG 2589) [facility] HospitalABORH, [id number] 14:38:00 Test Item Value Reference Range Interpretation Comments ABO Grouping (test O Anti-A 0, Anti-B 0, A1 4+, code = 2588) B 4+, Anti D 4+ . Typing as O positive due to multiple transfusions of O positive RBC due to O ne g RBC shortage. Rh Factor (test code = NEG 2589) [facility] HospitalType and screen, [id number] 14:32:00 Test Item Value Reference Range Interpretation Comments Ab Scrn (test code = 890-4) NEGATIVE [facility] HospitalType and screen, [id number] 14:32:00 Test Item Value Reference Range Interpretation Comments Ab Scrn (test code = 890-4) NEGATIVE [facility] HospitalType [facility] screen, [id number] 14:32:00 Test Item Value Reference Range Interpretation Comments Ab Scrn (test code = 890-4) NEGATIVE [facility] HospitalPOCT-GLUCOSE [id number] 14:30:00 Test Item Value Reference Range Interpretation Comments POC-GLUCOSE METER 105 mg/dL 70-110 : TESTED A T [facility] (BEAKER) (test code = RAYMONJACQUELINE SHULTZ MS, 1538) 50281: Brick Kiln Worker/Techni won ID = [id number] for RONAL PEREZ CT, BRAIN, WITHOUT [id number] 10:14:00Unlisted Reason for Exam - Click Yes and Enter Reason Below->No [facility] 1975 Sex: [...] Signed: Celso Fernandes Verified Date/Time: 01/29/2021 10:07:24 /[id number] 09:36:00 Test Item Value Reference Range Interpretation [...] patients with mechanical heart valves.Red blood cell [id number] 09:29:00 Test Item Value Reference Range Interpretation Comments RBC (test code = 2.37 See_Comment L [Automated 789-8) message] The system which generated this result transmit ari reference range : 4.63 - 6.08 M/ L. The reference range was not u sed to interpret th is result as normal/abnormal . CARLEY (test code = CARLEY) Brick [employer] Worker ID - [id number] ID - [id number] Lab Interpretation Abnormal (test code = 89795-8) [facility] HospitalRed blood cell [id number] 09:29:00 Test Item Value Reference Range Interpretation Comments RBC (test code = 2.37 See_Comment L [Automated 789-8) message] The system which generated this result transmit ari reference range : 4.63 - 6.08 M/ L. The reference range was not u sed to interpret th is result as normal/abnormal . CARLEY (test code = CARLEY) Brick [employer] Worker ID - [id number] ID - [id number] Lab Interpretation Abnormal (test code = 98904-5) [facility] HospitalRed blood cell [id number] 09:29:00 Test Item Value Reference Range Interpretation Comments RBC (test code = 2.37 See_Comment L [Automated 789-8) message] The system which generated this result transmit ari reference range : 4.63 - 6.08 M/ L. The reference range was not u sed to interpret th is result as normal/abnormal . CARLEY (test code = CARLEY) Brick [employer] Worker ID - [id number] ID - [id number] Lab Interpretation Abnormal (test code = 28763-7) [facility] HospitalRED BLOOD CELL [id number] 09:29:00 Test Item Value Reference Range Interpretation Comments RED BLOOD CELL COUNT (BEAKER) (test 2.37 M/ L 4.63-6.08 L code = 761) B[employer] Worker ID - [id number] ID - [id number] [id number] 08:25:00 Test Item Value Reference Range Interpretation Comments Digoxin Lvl (test code = 1.06 ng/mL 0.8-2 90682-9) CARLEY (test code = CARLEY) [employer] Worker ID - SIMA W Lab Interpretation (test Normal code = 59000-5) [facility] HospitalDigoxin [id number] 08:25:00 Test Item Value Reference Range Interpretation Comments Digoxin Lvl (test code = 1.06 ng/mL 0.8-2 38643-4) CARLEY (test code = CARLEY) Brick [employer] Worker ID - SIMA W Lab Interpretation (test Normal code = 03950-5) [facility] HospitalDigoxin [id number] 08:25:00 Test Item Value Reference Range Interpretation Comments Digoxin Lvl (test code = 1.06 ng/mL 0.8-2 66998-5) CARLEY (test code = CARLEY) B[employer] Worker ID - SIMA W Lab Interpretation (test Normal code = 02074-2) [facility] HospitalDIGOXIN [id number] 08:25:00 Test Item Value Reference Range Interpretation Comments DIGOXIN LEVEL (BEAKER) (test code 1.06 ng/mL 0.80-2.00 = 669) B[employer] Worker ID - SIMA MIDDLETONOCT-GLUCOSE [id number] 07:31:00 Test Item Value Reference Range Interpretation Comments POC-GLUCOSE METER 97 mg/dL 70-110 : TESTED A T [facility] ([facility]) (test code = NORM SHULTZ MS, 1538) 28527: Brick Kiln Worker/Techni won ID = [id number] for RONAL BROCK [id number] 07:26:00 Test Item Value Reference Range Interpretation Comments PARTIAL THROMBOPLASTIN TIME 35.6 seconds 22.5-36.0 ([facility]) (test code = 760) CBC W/PLT COUNT & AUTO [id number] 07:23:00 Test Item Value Reference Range Interpretation [...] (BEAKER) (test code = 2801) Hepatic function [id number] 07:21:00 Test Item Value Reference Range Interpretation Comments Protein, Total (test 5.6 See_Comment L [Autom ated code = 2885-2) message] The system which generated this result transmit ari reference range : 6.0 - 8.3 gm/dL . The reference range was not u sed to interpret th is result as normal/abnormal . Albumin (test code = 2.3 g/dL 3.5-5 L 43506-4) Total Bilirubin (test 0.6 mg/dL 0.2-1.2 code = 1974-2) Bilirubin, Direct 0.5 mg/dL 0.1-0.5 (test code = 1967-7) Alkaline Phosphatase 134 U/L 40-150 (test code = 6768-6) AST (test code = 39 U/L 5-34 H 1920-8) ALT (test code = 125 U/L 6-55 H 1742-6) CARLEY (test code = CARLEY) B[employer] Worker ID - KENNETH Leon Lab Interpretation Abnormal (test code = 13860-7) [facility] HospitalHepatic function [id number] 07:21:00 Test Item Value Reference Range Interpretation Comments Protein, Total (test 5.6 See_Comment L [Autom ated code = 2885-2) message] The system which generated this result transmit ari reference range : 6.0 - 8.3 gm/dL . The reference range was not u sed to interpret th is result as normal/abnormal . Albumin (test code = 2.3 g/dL 3.5-5 L 34402-4) Total Bilirubin (test 0.6 mg/dL 0.2-1.2 code = 1974-2) Bilirubin, Direct 0.5 mg/dL 0.1-0.5 (test code = 1967-7) Alkaline Phosphatase 134 U/L 40-150 (test code = 6768-6) AST (test code = 39 U/L 5-34 H 1920-8) ALT (test code = 125 U/L 6-55 H 1742-6) CARLEY (test code = CARLEY) B[employer] Worker ID - KENNETH W Lab Interpretation Abnormal (test code = 33209-1) [facility] HospitalHepatic function [id number] 07:21:00 Test Item Value Reference Range Interpretation Comments Protein, Total (test 5.6 See_Comment L [Autom ated code = 2885-2) message] The system which generated this result transmit ari reference range : 6.0 - 8.3 gm/dL . The reference range was not u sed to interpret th is result as normal/abnormal . Albumin (test code = 2.3 g/dL 3.5-5 L 05505-8) Total Bilirubin (test 0.6 mg/dL 0.2-1.2 code = 1975-2) Bilirubin, Direct 0.5 mg/dL 0.1-0.5 (test code = 1968-7) Alkaline Phosphatase 134 U/L 40-150 (test code = 6768-6) AST (test code = 39 U/L 5-34 H 1920-8) ALT (test code = 125 U/L 6-55 H 1742-6) CARLEY (test code = CARLEY) B[employer] Worker ID Doretha COOPER W Lab Interpretation Abnormal (test code = 65004-0) [facility] METABOLIC [id number] 07:21:00 Test Item Value Reference Range Interpretation [...] S NOT APPLICABLE FOR DIALYSIS PATIEN TS. Brick [employer] Worker ID - KENNETH [id number] 07:21:00 Test Item Value Reference Range Interpretation Comments MAGNESIUM (BEAKER) (test code = 2.0 mg/dL 1.6-2.6 627) B[employer] Worker ID Doretha COOPER [id number] 07:21:00 Test Item Value Reference Range Interpretation Comments PHOSPHORUS (BEAKER) (test code = 3.7 mg/dL 2.3-4.7 604) Brick [employer] Worker ID - KENNETH WHEPATIC FUNCTION [id number] 07:21:00 Test Item Value Reference Range Interpretation [...] code = 125 U/L 6-55 H 347) B[employer] Worker ID Doretha COOPER WLACTIC ACID, [id number] 07:18:00 Test Item Value Reference Range Interpretation Comments LACTATE BLOOD 0.7 mmol/L 0.5-2.2 Specimen sligh tly ARTERIAL (2) (BEAKER) hemoly zed (test code = 2874) B[employer] Worker ID Doretha COOPER WBLOOD GAS, [id number] 06:44:00 Test Item Value Reference Range Interpretation [...] (BEAKER) (test code = 1819) 70.0 CALCIUM, [id number] 06:42:00 Test Item Value Reference Range Interpretation Comments CALCIUM IONIZED (BEAKER) (test 1.13 mmol/L 1.12-1.27 code = 698) PH, BLOOD (BEAKER) (test code = 7.50 1810) OXYGEN SATURATION, [id number] 06:41:00 Test Item Value Reference Range Interpretation Comments O2 SATURATION (MEASURED) (BEAKER) 74.5 % (test code = 1455) RAD, CHEST, 1 VIEW, NON [id number] 04:31:00Reason for exam:- >intubatedShould this be performed at the bedside?->Yes [facility] 1975 Sex: [...] Warren MDReport Verified Date/Time: 01/29/2021 04:31:34 POCT-GLUCOSE [id number] 00:55:00 Test Item Value Reference Range Interpretation Comments POC-GLUCOSE METER 116 mg/dL 70-110 H : TESTED A T [facility] (BEAKER) (test code = NORM R [facility], 1538) 97117: Brick [employer] Worker/Techni won ID = [id number] for VINOD CHAUDHARY [id number] 18:45:00 Test Item Value Reference Range Interpretation Comments Potassium (test code = 3.9 meq/L 3.5-5.1 2823-3) CARLEY (test code = CARLEY) Brick [employer] Worker ID - DB Lab Interpretation (test Normal code = 73777-1) [facility] 18:45[facility]00 Test Item Value Reference Range Interpretation Comments Sodium (test code = 2951-2) 137 meq/L 136-145 CARLEY (test code = CARLEY) Brick Kiln Worker ID - DB Lab Interpretation (test Normal code = 34834-9) [facility] HospitalPotassium2021-08-21 18:45:00 Test Item Value Reference Range Interpretation Comments Potassium (test code = 3.9 meq/L 3.5-5.1 2823-3) CARLEY (test code = CARLEY) Brick [employer]n Worker ID - DB Lab Interpretation (test Normal code = 13422-0) [facility] 18:45:00 Test Item Value Reference Range Interpretation Comments Sodium (test code = 2951-2) 137 meq/L 136-145 CARLEY (test code = CARLEY) Brick Kiln Worker ID - DB Lab Interpretation (test Normal code = 80455-6) [facility] HospitalPotassium2021-08-21 18:45:00 Test Item Value Reference Range Interpretation Comments Potassium (test code = 3.9 meq/L 3.5-5.1 2823-3) CARLEY (test code = CARLEY) Brick Kiln Worker ID - DB Lab Interpretation (test Normal code = 08067-1) [facility] 18:45:00 Test Item Value Reference Range Interpretation Comments Sodium (test code = 2951-2) 137 meq/L 136-145 CARLEY (test code = CARLEY) Brick [employer]n Worker ID - DB Lab Interpretation (test Normal code = 30917-7) [facility] HospitalMAGNESIUM2021-08-21 18:45:00 Test Item Value Reference Range Interpretation Comments MAGNESIUM (BEAKER) (test code = 1.9 mg/dL 1.6-2.6 627) Brick [employer]n Worker ID - [id number] 18:45:00 Test Item Value Reference Range Interpretation Comments PHOSPHORUS (BEAKER) (test code = 2.7 mg/dL 2.3-4.7 604) Brick [employer] Worker ID - [id number] 18:45:00 Test Item Value Reference Range Interpretation Comments POTASSIUM (BEAKER) (test code = 3.9 meq/L 3.5-5.1 379) Brick [employer]n Worker ID - [id number] 18:45:00 Test Item Value Reference Range Interpretation Comments SODIUM (BEAKER) (test code = 381) 137 meq/L 136-145 Brick [employer] Worker ID - DBRAD, CHEST, 1 VIEW, NON [id number] 18:36:00Reason for exam:- >Hypoxia, eval chest tubeShould this be performed at the bedside?->Yes [facility] 1975 Sex: [...] MDReport Verified Date/Time: 01/28/2021 18:36:09 Reading Location: [facility] C013Y [facility] Reading Room POCT-GLUCOSE [id number] 18:29:00 Test Item Value Reference Range Interpretation Comments POC-GLUCOSE METER 91 mg/dL 70-110 : TESTED A T [facility] (BEAKER) (test code = NORM Tenorio SHULTZ MS, 1538) 47198: Brick Kiln Worker/Techni won ID = [id number] for RONAL BROCK BLOOD GAS, [id number] 18:20:00 Test Item Value Reference Range Interpretation [...] (BEAKER) (test code = 1819) 100.0 HEMODIALYSIS [id number] 12:55:00Kimmy Mitchell RN 01/28/2021 12:55 PMLab Results [...] Report given to primary RN. JOSE Talbot [facility] CenterHEMODIALYS[facility] [id number] 12:55:00Kimmy Mitchell RN 01/28/2021 12:55 PMLab Results [...] Report given to primary RN. JOSE Talbot [facility] CenterHEMODIALYSIS [id number] 12:55:00Kimmy Mitchell RN 01/28/2021 12:55 PMLab Results [...] given to primary RN. Kimmy Mitchell RNCHI [facility] CenterPOCT-GLUCOSE [id number] 11:56:00 Test Item Value Reference Range Interpretation Comments POC-GLUCOSE METER 97 mg/dL 70-110 : TESTED A T [facility] (BEAKER) (test code = NORM SHULTZ MS, 1538) 69425: Brick Kiln Worker/Techni won ID = [id number] for RONAL BROCK PROTHROMBIN [id number] 09:33:00 Test Item Value Reference Range Interpretation Comments PROTIME (BEAKER) 19.1 seconds 11.9-14.2 H (test code = 759) INR (BEAKER) (test 1.63 See_Comment [Automat ed message] code = 370) The system [employer] generated this result transmitted ref erence range: <=5.90. The reference range was not used to int erpret this result as normal/abnormal . RECOMMENDED COUMADIN/WARFARIN INR THERAPY RANGESSTANDARD DOSE: 2.0 - 3.0 Includes: PROPHYLAXIS forvenous thrombosis, systemic embolization; TREATMENT for venous thrombosis and/or pulmonary embolus.HIGH RISK: Target INR is 2.5-3.5 for patients with mechanical heart valves.BASIC METABOLIC [id number] 09:07:00 Test Item Value Reference Range Interpretation [...] S NOT APPLICABLE FOR DIALYSIS PATIEN TS. Brick Kiln Worker ID - VALDEZ [id number] 09:07:00 Test Item Value Reference Range Interpretation Comments MAGNESIUM (BEAKER) (test code = 2.2 mg/dL 1.6-2.6 627) Brick Kiln Worker ID - VALDEZ [id number] 09:07:00 Test Item Value Reference Range Interpretation Comments PHOSPHORUS (BEAKER) (test code = 3.3 mg/dL 2.3-4.7 604) Brick [employer]n Worker ID - VALDEZ MPROTHROMBIN TIME/[id number] 07:41:00 Test Item Value Reference Range Interpretation Comments PROTIME (BEAKER) 18.6 seconds 11.9-14.2 H (test code = 759) INR (BEAKER) (test 1.58 See_Comment [Automat ed message] code = 370) The system [employer] generated this result transmitted ref erence range: <=5.90. The reference range was not used to int erpret this result as normal/abnormal . RECOMMENDED COUMADIN/WARFARIN INR THERAPY RANGESSTANDARD DOSE: 2.0 - 3.0 Includes: PROPHYLAXIS forvenous thrombosis, systemic embolization; TREATMENT for venous thrombosis and/or pulmonary embolus.HIGH RISK: Target INR is 2.5-3.5 for patients with mechanical heart valves.HEPATIC FUNCTION [id number] 06:56:00 Test Item Value Reference Range Interpretation [...] code = 184 U/L 6-55 H 347) Brick [employer]n Worker ID - VALDEZ [id number] 06:56:00 Test Item Value Reference Range Interpretation Comments MAGNESIUM (BEAKER) (test code = 2.2 mg/dL 1.6-2.6 627) Brick [employer] Worker ID - VALDEZ [id number] 06:56:00 Test Item Value Reference Range Interpretation Comments PHOSPHORUS (BEAKER) (test code = 3.1 mg/dL 2.3-4.7 604) Brick [employer]n Worker ID - VALDEZ [id number] 06:56:00 Test Item Value Reference Range Interpretation Comments POTASSIUM (BEAKER) (test code = 4.5 meq/L 3.5-5.1 379) B[employer] Worker ID - VALDEZ MRAD, CHEST, 1 VIEW, NON [id number] 06:36:00Reason for exam:->intubatedShould this be performed at the bedside?->Yes [facility] 1975 Sex: [...] (BEAKER) (test code = 2801) LACTIC ACID, [id number] 06:30:00 Test Item Value Reference Range Interpretation Comments LACTATE BLOOD ARTERIAL (2) 0.9 mmol/L 0.5-2.2 (BEAKER) (test code = 2874) Brick [employer] Worker ID - VALDEZ [id number] 06:29:00 Test Item Value Reference Range Interpretation Comments PARTIAL THROMBOPLASTIN TIME 37.9 seconds 22.5-36.0 H (BEAKER) (test code = 760) POCT-GLUCOSE [id number] 06:25:00 Test Item Value Reference Range Interpretation Comments POC-GLUCOSE METER 94 mg/dL 70-110 : TESTED A T [facility] (BEAKER) (test code = NORM SHULTZ MS, 1538) 65820: Brick Kiln Worker/Techni won ID = [id number] for Asa longManuelito OXYGEN SATURATION, [id number] 05:45:00 Test Item Value Reference Range Interpretation Comments O2 SATURATION (MEASURED) (BEAKER) 84.7 % (test code = 1455) BLOOD GAS, [id number] 05:43:00 Test Item Value Reference Range Interpretation [...] (BEAKER) (test code = 1819) 44.0 CALCIUM, [id number] 05:42:00 Test Item Value Reference Range Interpretation Comments CALCIUM IONIZED (BEAKER) (test 1.19 mmol/L 1.12-1.27 code = 698) PH, BLOOD (BEAKER) (test code = 7.47 1810) POCT-GLUCOSE [id number] 00:02:00 Test Item Value Reference Range Interpretation Comments POC-GLUCOSE METER 97 mg/dL 70-110 : TESTED A T [facility] (BEAKER) (test code = NORM SHULTZ MS, 1538) 22467: Brick Kiln Worker/Techni won ID = [id number] for AsaManuelito curiel RAD, CHEST, 1 VIEW, NON [id number] 21:24:00Reason for exam:- >tachypnea/assess left side hemothoraxShould this be performed at the bedside?->Yes[facility] : 1975 Sex: [...] Castro Verified Date/Time: 01/27/2021 21:24:57 Reading Location: [facility] C0Rust TransitionalReading Room LACTIC ACID, [id number] 21:23:00 Test Item Value Reference Range Interpretation Comments LACTATE BLOOD ARTERIAL (2) 1.1 mmol/L 0.5-2.2 (BEAKER) (test code = 2874) Brick Kiln Worker ID - CAROLINA [id number] 21:12:00 Test Item Value Reference Range Interpretation Comments POTASSIUM (BEAKER) (test code = 4.5 meq/L 3.5-5.1 379) Brick Kiln Worker ID - CDPCBC (Hemogram only)2021-01-27 21:05:00 Test Item Value Reference Range Interpretation Comments WBC (test code = 6690-2) 12.5 See_Comment H [A utomated message] The system [employer] generated this result transmitted ref erence range: 3.5 - 10 .5 K/L. The refe rence range was not u sed to interpret this result as normal/abnor mal. RBC (test code = 789-8) 2.71 See_Comment L [Au tomated message] The system [employer] generated this result transmitted ref erence range: 4.63 - 6 .08 M/L. The refe rence range was not u sed to interpret this result as normal/abnor mal. MCHC (test code = 786-4) 32.4 See_Comment L [A utomated message] The system [employer] generated this result transmitted ref erence range: [...] L [Aut omated message] 777-3) The system [employer] generated this result transmitted ref erence range: 150 - 45 0 K/CU MM. The referen ce range was not u sed to interpret this result as normal/abnor mal. MPV (test code = 11.2 fL 9.4-12.4 49864-5) nRBC (test code = 413) 0 See_Comment [Aut omated message] The system [employer] generated this result transmitted ref erence range: 0 - 0 /1 00 WBC. The refere nce range was not u sed to interpret this result as normal/abnor mal. Lab Interpretation (test Abnormal code = 61270-3) [facility] (Hemogram only)2021-01-27 21:05:00 Test Item Value Reference Range Interpretation Comments WBC (test code = 6690-2) 12.5 See_Comment H [A utomated message] The system [employer] generated this result transmitted ref erence range: 3.5 - 10 .5 K/L. The refe rence range was not u sed to interpret this result as normal/abnor mal. RBC (test code = 789-8) 2.71 See_Comment L [Au tomated message] The system [employer] generated this result transmitted ref erence range: 4.63 - 6 .08 M/L. The refe rence range was not u sed to interpret this result as normal/abnor mal. MCHC (test code = 786-4) 32.4 See_Comment L [A utomated message] The system [employer] generated this result transmitted ref erence range: [...] L [Aut omated message] 777-3) The system [employer] generated this result transmitted ref erence range: 150 - 45 0 K/CU MM. The referen ce range was not u sed to interpret this result as normal/abnor mal. MPV (test code = 11.2 fL 9.4-12.4 32810-7) nRBC (test code = 413) 0 See_Comment [Aut omated message] The system [employer] generated this result transmitted ref erence range: 0 - 0 /1 00 WBC. The refere nce range was not u sed to interpret this result as normal/abnor mal. Lab Interpretation (test Abnormal code = 63216-6) [facility] (Hemogram only)2021-01-27 21:05:00 Test Item Value Reference Range Interpretation Comments WBC (test code = 6690-2) 12.5 See_Comment H [A utomated message] The system [employer] generated this result transmitted ref erence range: 3.5 - 10 .5 K/L. The refe rence range was not u sed to interpret this result as normal/abnor mal. RBC (test code = 789-8) 2.71 See_Comment L [Au tomated message] The system [employer] generated this result transmitted ref erence range: 4.63 - 6 .08 M/L. The refe rence range was not u sed to interpret this result as normal/abnor mal. MCHC (test code = 786-4) 32.4 See_Comment L [A utomated message] The system [employer] generated this result transmitted ref erence range: [...] L [Aut omated message] 777-3) The system [employer] generated this result transmitted ref erence range: 150 - 45 0 K/CU MM. The referen ce range was not u sed to interpret this result as normal/abnor mal. MPV (test code = 11.2 fL 9.4-12.4 57404-7) nRBC (test code = 413) 0 See_Comment [Aut omated message] The system [employer] generated this result transmitted ref erence range: 0 - 0 /1 00 WBC. The refere nce range was not u sed to interpret this result as normal/abnor mal. Lab Interpretation (test Abnormal code = 54076-9) [facility] (HEMOGRAM ONLY)2021-01-27 21:05:00 Test Item Value [...] (BEAKER) (test code = 413) BLOOD GAS, [id number] 20:50:00 Test Item Value Reference Range Interpretation [...] FIO2 (BEAKER) (test code = 1819) 36.0 [id number] 18:51:00 Test Item Value Reference Range Interpretation Comments MAGNESIUM (BEAKER) (test code = 2.2 mg/dL 1.6-2.6 627) Brick [employer] Worker ID - [id number] 18:51:00 Test Item Value Reference Range Interpretation Comments PHOSPHORUS (BEAKER) (test code = 3.2 mg/dL 2.3-4.7 604) Brick [employer] Worker ID - [id number] 18:51:00 Test Item Value Reference Range Interpretation Comments POTASSIUM (BEAKER) (test code = 4.3 meq/L 3.5-5.1 379) Brick [employer] Worker ID - [id number] 18:51:00 Test Item Value Reference Range Interpretation Comments SODIUM (BEAKER) (test code = 381) 135 meq/L 136-145 L Brick [employer] Worker ID - [id number] 12:12:00 Test Item Value Reference Range Interpretation Comments MAGNESIUM (BEAKER) (test code = 2.1 mg/dL 1.6-2.6 627) Brick [employer]n Worker ID - GEMINI [id number] 12:12:00 Test Item Value Reference Range Interpretation Comments PHOSPHORUS (BEAKER) (test code = 2.9 mg/dL 2.3-4.7 604) Brick [employer] Worker ID - GEMINI [id number] 12:12:00 Test Item Value Reference Range Interpretation Comments POTASSIUM (BEAKER) (test code = 4.4 meq/L 3.5-5.1 379) Brick [employer]n Worker ID - GEMINI FPOCT-GLUCOSE [id number] 11:53:00 Test Item Value Reference Range Interpretation Comments POC-GLUCOSE METER 91 mg/dL 70-110 : TESTED Elias Dominguez [facility] ([place]) (test code = NORM SHULTZ MS, 1538) 76973: Brick Kiln Worker/Techni won ID = [id number] for RONAL BROCK, CHEST, 1 VIEW, NON [id number] 07:51:00Reason for exam:- >intubatedShould this be performed at the bedside?->Yes [facility] 1975 Sex: [...] Browningepting Verified Date/Time: 01/27/2021 07:51:17 Reading Location: [facility] Diagnostic Imaging Reading Room - SLSWV F1 1129 BASIC METABOLIC [id number] 07:12:00 Test Item Value Reference Range Interpretation [...] S NOT APPLICABLE FOR DIALYSIS PATIEN TS. Brick [employer]n Worker ID - GEMINI FPROTHROMBIN TIME/[id number] 07:09:00 Test Item Value Reference Range Interpretation Comments PROTIME (BEAKER) 17.1 seconds 11.9-14.2 H (test code = 759) INR (BEAKER) (test 1.42 See_Comment [Automat ed message] code = 370) The system [employer] generated this result transmitted ref erence range: <=5.90. The reference range was not used to int erpret this result as normal/abnormal . RECOMMENDED COUMADIN/WARFARIN INR THERAPY RANGESSTANDARD DOSE: 2.0 - 3.0 Includes: PROPHYLAXIS forvenous thrombosis, systemic embolization; TREATMENT for venous thrombosis and/or pulmonary embolus.HIGH RISK: Target INR is 2.5-3.5 for patients with mechanical heart valves.HEPATIC FUNCTION [id number] 04:21:00 Test Item Value Reference Range Interpretation [...] code = 248 U/L 6-55 H 347) [place] [place] Worker ID - LINA [id number] 04:21:00 Test Item Value Reference Range Interpretation Comments MAGNESIUM (BEAKER) (test code = 2.1 mg/dL 1.6-2.6 627) [employer] [place] Worker ID - LINA [id number] 04:21:00 Test Item Value Reference Range Interpretation Comments PHOSPHORUS (BEAKER) (test code = 2.5 mg/dL 2.3-4.7 604) [employer] [place] Worker ID - LINA [id number] 04:21:00 Test Item Value Reference Range Interpretation Comments POTASSIUM (BEAKER) (test code = 4.0 meq/L 3.5-5.1 379) [employer] [place] Worker ID - LINA [id number] 04:14:00 Test Item Value Reference Range Interpretation Comments PARTIAL THROMBOPLASTIN TIME 35.4 seconds 22.5-36.0 (BEAKER) (test code = 760) LACTIC ACID, [id number] 04:05:00 Test Item Value Reference Range Interpretation Comments LACTATE BLOOD ARTERIAL (2) 0.9 mmol/L 0.5-2.2 (BEAKER) (test code = 2874) [place] Worker ID - LINA LCBC W/PLT COUNT & AUTO [id number] 03:58:00 Test Item Value Reference Range Interpretation [...] (BEAKER) (test code = 2801) BLOOD GAS, [id number] 03:52:00 Test Item Value Reference Range Interpretation [...] (test code = 1819) 100.0 OXYGEN SATURATION, [id number] 03:50:00 Test Item Value Reference Range Interpretation Comments O2 SATURATION (MEASURED) (BEAKER) 64.2 % (test code = 1455) CALCIUM, [id number] 03:50:00 Test Item Value Reference Range Interpretation Comments CALCIUM IONIZED (BEAKER) (test 1.15 mmol/L 1.12-1.27 code = 698) PH, BLOOD (BEAKER) (test code = 7.43 1810) Insert Arterial [id number] 23:51:37Jes Ramos NP 01/26/2021 11:56 PMInsert Arterial [...] to verify the correct patient, procedure, equipment, client support manager and site/side marked as required.Preparation:Patient was prepped and draped in the usual sterile fashion.Indications: multiple ABGs and hemodynamic monitoringLocation: left radialAnesthesia: local infiltration Anesthesia:Local Anesthetic: lidocaine 2% without epinephrine Sedation:Patient sedated: no Parish's test normal: yesNeedle gauge: 20Seldinger technique: Seldinger technique usedPost-procedure: line sutured and dressing appliedPost-procedure CMS: [facility] Arterial [id number] 23:51:37Jes Ramos NP 01/26/2021 11:56 PMInsert Arterial [...] to verify the correct patient, procedure, equipment, client support manager and site/side marked as required.Preparation:Patient was prepped and draped in the usual sterile fashion.Indications: multiple ABGs and hemodynamic monitoringLocation: left radialAnesthesia: local infiltration Anesthesia:Local Anesthetic: lidocaine 2% without epinephrine Sedation:Patient sedated: no Parish's test normal: yesNeedle gauge: 20Seldinger technique: Seldinger technique usedPost-procedure: line sutured and dressing appliedPost-procedure CMS: [facility] Arterial [id number] 23:51:37Jes Ramos NP 01/26/2021 11:56 PMInsert Arterial [...] to verify the correct patient, procedure, equipment, client support manager and site/side marked as required.Preparation:Patient was prepped and draped in the usual sterile fashion.Indications: multiple ABGs and hemodynamic monitoringLocation: left radialAnesthesia: local infiltration Anesthesia:Local Anesthetic: lidocaine 2% without epinephrine Sedation:Patient sedated: no Parish's test normal: yesNeedle gauge: 20Seldinger technique: Seldinger technique usedPost-procedure: line sutured and dressing appliedPost-procedure [facility] [id number] 22:14:00 Test Item Value Reference Range Interpretation Comments POC-GLUCOSE METER 107 mg/dL 70-110 : TESTED A T [facility] 6720 (BEAKER) (test code = [place]ULT[place], 1538) [address]: [place] Worker/Techni won ID = [id number] for DO September BASIC METABOLIC [id number] 21:01:00 Test Item Value Reference Range Interpretation [...] S NOT APPLICABLE FOR DIALYSIS PATIEN TS. [employer] [place] Worker ID - [id number] 21:01:00 Test Item Value Reference Range Interpretation Comments MAGNESIUM (BEAKER) (test code = 2.2 mg/dL 1.6-2.6 627) [place] Worker ID - [id number] 21:01:00 Test Item Value Reference Range Interpretation Comments PHOSPHORUS (BEAKER) (test code = 2.0 mg/dL 2.3-4.7 L 604) [place] Worker ID - BSCALCIUM, [id number] 20:38:00 Test Item Value Reference Range Interpretation Comments CALCIUM IONIZED (BEAKER) (test 1.24 mmol/L 1.12-1.27 code = 698) PH, BLOOD (BEAKER) (test code = 7.43 1810) [id number] 17:42:00 Test Item Value Reference Range Interpretation Comments POTASSIUM (BEAKER) (test code = 4.2 meq/L 3.5-5.1 379) [place] Worker ID - BSPOCT-GLUCOSE [id number] 17:02:00 Test Item Value Reference Range Interpretation Comments POC-GLUCOSE METER 105 mg/dL 70-110 : TESTED A T [facility] 6720 (BEAKER) (test code = [facility], 1538) [address]: [place] Worker/Techni won ID = [id number] for ABRAN PALOMINO [id number] 12:47:00 Test Item Value Reference Range Interpretation Comments POTASSIUM (BEAKER) (test code = 4.3 meq/L 3.5-5.1 379) [place] Worker ID - AMARISONPOCT-GLUCOSE [id number] 12:25:00 Test Item Value Reference Range Interpretation Comments POC-GLUCOSE METER 100 mg/dL 70-110 : TESTED A T [facility] 6720 (BEAKER) (test code = [facility], 1538) 260[address]: [place] Worker/Techni won ID = [id number] for ABRAN PALOMINO [id number] 08:42:00 Test Item Value Reference Range Interpretation Comments MAGNESIUM (BEAKER) (test code = 2.1 mg/dL 1.6-2.6 627) [place] Worker ID - [id number] 08:42:00 Test Item Value Reference Range Interpretation Comments PHOSPHORUS (BEAKER) (test code = 2.7 mg/dL 2.3-4.7 604) [place] Worker ID - [id number] 08:42:00 Test Item Value Reference Range Interpretation Comments POTASSIUM (BEAKER) (test code = 4.4 meq/L 3.5-5.1 379) [place] Worker ID - JOJOPrepare [id number] 08:26:00 Test Item Value Reference Range Interpretation Comments Unit ABO (test code = O Pos 7568011) UNIT NUMBER (test code = [id number] 934-0) Status (test code = RETURNED FROM ISSUE 15100819) Blood Bank Product (test RED BLOOD CELLS code = 2263) PRODUCT CODE (test code = W0952Y85 933-2) CROSSMATCH (test code = COMPATIBLE 4) [facility] [id number] 08:26:00 Test Item Value Reference Range Interpretation Comments Unit ABO (test code = O Pos 8451466) UNIT NUMBER (test code = [id number] 934-0) Status (test code = RETURNED FROM ISSUE 15100819) Blood Bank Product (test RED BLOOD CELLS code = 2263) PRODUCT CODE (test code = G7603T45 933-2) CROSSMATCH (test code = COMPATIBLE 2264) [facility] HospitalPrepar [id number] 08:26:00 Test Item Value Reference Range Interpretation Comments Unit ABO (test code = O Pos 1846639) UNIT NUMBER (test code = [id number] 934-0) Status (test code = RETURNED FROM ISSUE 15100819) Blood Bank Product (test RED BLOOD CELLS code = 2263) PRODUCT CODE (test code = C4994F23 933-2) CROSSMATCH (test code = COMPATIBLE 2264) [facility] HospitalPO[facility] [id number] 08:26:00 Test Item Value Reference Range Interpretation Comments POC-GLUCOSE METER 103 mg/dL 70-110 : TESTED A T [facility] 6720 (BEAKER) (test code = N[place] SHULT[place], 1538) [address]: [place] Worker/Techni won ID = [id number] for SYLWIA TIAN NCREZA CALCIUM, [id number] 07:15:00 Test Item Value Reference Range Interpretation Comments CALCIUM IONIZED (BEAKER) (test 1.19 mmol/L 1.12-1.27 code = 698) PH, BLOOD (BEAKER) (test code = 7.41 1810) BLOOD GAS, [id number] 06:40:00 Test Item Value Reference Range Interpretation [...] (BEAKER) (test code = 1819) 40.0 DIGOXIN [id number] 05:24:00 Test Item Value Reference Range Interpretation Comments DIGOXIN LEVEL (BEAKER) (test code 0.76 ng/mL 0.80-2.00 L = 669) [employer] [place] Worker ID - VALDEZ MOXYGEN SATURATION, [id number] 05:13:00 Test Item Value Reference Range Interpretation Comments O2 SATURATION (MEASURED) (BEAKER) 62.6 % (test code = 1455) BLOOD GAS, [id number] 05:11:00 Test Item Value Reference Range Interpretation [...] FIO2 (BEAKER) (test code = 1819) 40.0 [id number] 05:04:00 Test Item Value Reference Range Interpretation Comments PHOSPHORUS (BEAKER) (test code = 1.0 mg/dL 2.3-4.7 LL 604) B[place] Worker ID - VALDEZ MBASIC METABOLIC [id number] 04:53:00 Test Item Value Reference Range Interpretation [...] S NOT APPLICABLE FOR DIALYSIS PATIEN TS. [employer] [place] Worker ID - VALDEZ [id number] 04:53:00 Test Item Value Reference Range Interpretation Comments MAGNESIUM (BEAKER) (test code = 2.3 mg/dL 1.6-2.6 627) [place] Worker ID - VALDEZ [id number] 04:44:00 Test Item Value Reference Range Interpretation Comments PARTIAL THROMBOPLASTIN TIME 35.3 seconds 22.5-36.0 (BEAKER) (test code = 760) PROTHROMBIN [id number] 04:43:00 Test Item Value Reference Range Interpretation Comments PROTIME (BEAKER) 16.6 seconds 11.9-14.2 H (test code = 759) INR (BEAKER) (test 1.36 See_Comment [Automat ed message] code = 370) The system [employer] generated this result transmitted ref erence range: [...] (BEAKER) (test code = 2801) LACTIC ACID, [id number] 04:38:00 Test Item Value Reference Range Interpretation Comments LACTATE BLOOD ARTERIAL (2) 1.5 mmol/L 0.5-2.2 (BEAKER) (test code = 2874) [place] [place] Worker ID - VALDEZ MBLOOD GAS, [id number] 04:34:00 Test Item Value Reference Range Interpretation [...] 1819) 40.0 RAD, CHEST, 1 VIEW, NON [id number] 02:40:00Reason for exam:- >intubatedShould this be performed at the bedside?->Yes [facility] 1975 Sex: MFINAL REPORT RAD, CHEST, 1 VIEW, NON DEPT INDICATION: intubated TESFAYE RISON: Prior day's exam FINDINGS: Portable frontal view of the chest. IMPRESSION: Support Lines: No significant change. Lungs and pleura: Unchanged airspace and pleural opacities. No pneumothorax.Heart and mediastinum: Stable cardiomegaly. Additional findings: None. Signed: Abhay Melo Verified Date/Time: 01/26/2021 02:40:28 RAD, ABDOMEN/KUB, 1 VIEW [id number] 00:28:00Reason for exam:->Corpak position [facility] : 1975 Sex: [...] 01/26/2021 00:28:31 XR abdomen / KUB 1 [id number] 00:28:00Interface, External Ris In - 01/26/2021 12:30 [...] Signed: Buck Warren Verified Date/Time: 01/26/2021 00:28:31 [facility] [id number] 00:28:00Interface, External Ris In - 01/26/2021 12:30 [...] Signed: Buck Warren Verified Date/Time: 01/26/2021 00:28:31 [facility]UB 1 [id number] 00:28:00Interface, External Ris In - 01/26/2021 12:30 [...] Signed: Buck Warreneport Verified Date/Time: 01/26/2021 00:28:31 [facility] [id number] 22:11:00 Test Item Value Reference Range Interpretation Comments POC-GLUCOSE METER 97 mg/dL 70-110 : TESTED A T [facility] 6720 (BEAKER) (test code = [place], 1538) [address]: [place] Worker/Techni won ID = [id number] for MESERET ETTSeptember BASIC METABOLIC [id number] 20:58:00 Test Item Value Reference Range Interpretation [...] S NOT APPLICABLE FOR DIALYSIS PATIEN TS. [place] Worker ID - [id number] 20:58:00 Test Item Value Reference Range Interpretation Comments MAGNESIUM (BEAKER) (test code = 1.9 mg/dL 1.6-2.6 627) B[place] Worker ID - CDPPOCT-GLUCOSE [id number] 18:18:00 Test Item Value Reference Range Interpretation Comments POC-GLUCOSE METER 103 mg/dL 70-110 : TESTED A T [facility] 6720 (BEAKER) (test code = NORM SHULT[place], 1538) [address]17: [place] Worker/Techni won ID = [id number] for LEVY BARBOZA [id number] 17:35:00 Test Item Value Reference Range Interpretation Comments MAGNESIUM (BEAKER) (test code = 2.1 mg/dL 1.6-2.6 627) [place] Worker ID - [id number] 17:35:00 Test Item Value Reference Range Interpretation Comments PHOSPHORUS (BEAKER) (test code = 2.0 mg/dL 2.3-4.7 L 604) B[employer] [place] Worker ID - [id number] 17:35:00 Test Item Value Reference Range Interpretation Comments POTASSIUM (BEAKER) (test code = 3.8 meq/L 3.5-5.1 379) [employer] [place] Worker ID - [id number] 17:35:00 Test Item Value Reference Range Interpretation Comments SODIUM (BEAKER) (test code = 381) 136 meq/L 136-145 [place] Worker ID - CDPBLOOD GAS, [id number] 16:13:00 Test Item Value Reference Range Interpretation [...] 1819) 40.0 CBC W/PLT COUNT & AUTO [id number] 14:29:00 Test Item Value Reference Range Interpretation [...] PERCENT (BEAKER) (test code = 2801) POCT-GLUCOSE [id number] 13:31:00 Test Item Value Reference Range Interpretation Comments POC-GLUCOSE METER 92 mg/dL 70-110 : TESTED A T [facility] 6720 (BEAKER) (test code = N[place], 1538) [address]71: [place] [place] Worker/Techni won ID = [id number] for LEVY MINER BASIC METABOLIC [id number] 12:31:00 Test Item Value Reference Range Interpretation [...] S NOT APPLICABLE FOR DIALYSIS PATIEN TS. [employer] [place] Worker ID - [id number] 12:31:00 Test Item Value Reference Range Interpretation Comments MAGNESIUM (BEAKER) (test code = 2.0 mg/dL 1.6-2.6 627) B[employer] [place] Worker ID - [id number] 12:31:00 Test Item Value Reference Range Interpretation Comments PHOSPHORUS (BEAKER) (test code = 2.0 mg/dL 2.3-4.7 L 604) [place] Worker ID - EMERSONCALCIUM, [id number] 12:07:00 Test Item Value Reference Range Interpretation Comments CALCIUM IONIZED (BEAKER) (test 1.22 mmol/L 1.12-1.27 code = 698) PH, BLOOD (BEAKER) (test code = 7.50 1810) RAD, CHEST, 1 VIEW, NON [id number] 09:54:00Reason for exam:- >intubatedShould this be performed at the bedside?->Yes [facility] 1975 Sex: MFINAL REPORT CLINICAL HISTORY: intubated TECHNIQUE: [address] COMPARISON: 01/24/2021 IMPRESSION: The supporting lines and tubes are similar appearing. Bilateral airspace opacities and a left pleural effusion are grossly unchanged. The cardiomediastinal silhouette is magnified by technique with sternotomy wires. Signed: Melodie Zarateort Verified Date/Time: 01/25/2021 09:54:23 Reading Location: [facility] Radiology Reading Room POCT- GLUCOSE [id number] 08:19:00 Test Item Value Reference Range Interpretation Comments POC-GLUCOSE METER 106 mg/dL 70-110 : TESTED A T [facility] 6720 (BEAKER) (test code = [place], 1538) 99842: [place] Worker/Techni won ID = [id number] for LISA SWENSONYohan LEVY CALCIUM, [id number] 04:51:00 Test Item Value Reference Range Interpretation Comments CALCIUM IONIZED (BEAKER) (test 1.20 mmol/L 1.12-1.27 code = 698) PH, BLOOD (BEAKER) (test code = 7.44 1810) BLOOD GAS, [id number] 04:50:00 Test Item Value Reference Range Interpretation [...] (test code = 1819) 40.0 OXYGEN SATURATION, [id number] 04:48:00 Test Item Value Reference Range Interpretation Comments O2 SATURATION (MEASURED) (BEAKER) 96.3 % (test code = 1455) BASIC METABOLIC [id number] 04:39:00 Test Item Value Reference Range Interpretation [...] S NOT APPLICABLE FOR DIALYSIS PATIEN TS. [employer] [place] Worker ID - KENNETH [id number] 04:39:00 Test Item Value Reference Range Interpretation Comments MAGNESIUM (BEAKER) (test code = 2.0 mg/dL 1.6-2.6 627) [employer] [place] Worker ID - KENNETH [id number] 04:39:00 Test Item Value Reference Range Interpretation Comments PHOSPHORUS (BEAKER) (test code = 2.1 mg/dL 2.3-4.7 L 604) [place] Worker ID - KENNETH WLACTIC ACID, [id number] 04:30:00 Test Item Value Reference Range Interpretation Comments LACTATE BLOOD ARTERIAL (2) 0.7 mmol/L 0.5-2.2 (BEAKER) (test code = 2874) [place] Worker ID - LINA [id number] 04:26:00 Test Item Value Reference Range Interpretation Comments PARTIAL THROMBOPLASTIN TIME 35.4 seconds 22.5-36.0 (BEAKER) (test code = 760) PROTHROMBIN [id number] 04:25:00 Test Item Value Reference Range Interpretation Comments PROTIME (BEAKER) 16.3 seconds 11.9-14.2 H (test code = 759) INR (BEAKER) (test 1.34 See_Comment [Automat ed message] code = 370) The system [employer] generated this result transmitted ref erence range: [...] PERCENT (BEAKER) (test code = 2801) POCT-GLUCOSE [id number] 00:25:00 Test Item Value Reference Range Interpretation Comments POC-GLUCOSE METER 87 mg/dL 70-110 : TESTED A T [facility] 6720 (BEAKER) (test code = [place], 1538) 86[address]: [place] Worker/Techni won ID = [id number] for JAYLA DOWNEY Prepare [id number] 23:55:00 Test Item Value Reference Range Interpretation Comments Unit ABO (test code = 4421672) A Pos UNIT NUMBER (test code = [id number] 934-0) Status (test code = 8749653) TX_TIMEINCHART Blood Bank Product (test code FFP = 2263) PRODUCT CODE (test code = F2301D80 933-2) [facility] [id number] 23:55:00 Test Item Value Reference Range Interpretation Comments Unit ABO (test code = 3318779) O Neg UNIT NUMBER (test code = [id number] 934-0) Status (test code = 1250609) TX_TIMEINCHART Blood Bank Product (test code PLATELETS = 2263) PRODUCT CODE (test code = P8524T12 933-2) [facility] Leuko-Red [id number] 23:55:00 Test Item Value Reference Range Interpretation Comments Unit ABO (test code = 1521240) O Neg UNIT NUMBER (test code = [id number] 934-0) Status (test code = 7471929) TX_TIMEINCHART Blood Bank Product (test code PLATELETS = 2263) PRODUCT CODE (test code = D8061G85 933-2) [facility] [id number] 23:55:00 Test Item Value Reference Range Interpretation Comments Unit ABO (test code = 9100478) A Pos UNIT NUMBER (test code = [id number] 934-0) Status (test code = 3571779) TX_TIMEINCHART Blood Bank Product (test code FFP = 2263) PRODUCT CODE (test code = P7089N38 933-2) [facility] [id number] 23:55:00 Test Item Value Reference Range Interpretation Comments Unit ABO (test code = 8940073) O Neg UNIT NUMBER (test code = [id number] 934-0) Status (test code = 5795197) TX_TIMEINCHART Blood Bank Product (test code PLATELETS = 2263) PRODUCT CODE (test code = O2992Q28 933-2) [facility] Leuko-Red [id number] 23:55:00 Test Item Value Reference Range Interpretation Comments Unit ABO (test code = 5444447) O Neg UNIT NUMBER (test code = [id number] 934-0) Status (test code = 0574564) TX_TIMEINCHART Blood Bank Product (test code PLATELETS = 2263) PRODUCT CODE (test code = X6854U34 933-2) [facility] [id number] 23:55:00 Test Item Value Reference Range Interpretation Comments Unit ABO (test code = 1257144) A Pos UNIT NUMBER (test code = X232853833987 934-0) Status (test code = 6457694) TX_TIMEINCHART Blood Bank Product (test code FFP = 2263) PRODUCT CODE (test code = T2685A86 933-2) [facility] [id number] 23:55:00 Test Item Value Reference Range Interpretation Comments Unit ABO (test code = 3040242) O Neg UNIT NUMBER (test code = [id number] 934-0) Status (test code = 5155499) TX_TIMEINCHART Blood Bank Product (test code PLATELETS = 2263) PRODUCT CODE (test code = P4007S82 933-2) [facility] Leuko-Red [id number] 23:55:00 Test Item Value Reference Range Interpretation Comments Unit ABO (test code = 1425599) O Neg UNIT NUMBER (test code = [id number] 934-0) Status (test code = 1991153) TX_TIMEINCHART Blood Bank Product (test code PLATELETS = 2263) PRODUCT CODE (test code = F8261W01 933-2) [facility] [id number] 22:10:00 Test Item Value Reference Range Interpretation Comments SODIUM (BEAKER) (test code = 381) 134 meq/L 136-145 L GLUCOSE-STAT [id number] 22:10:00 Test Item Value Reference Range Interpretation Comments GLUCOSE RANDOM (BEAKER) (test code 115 mg/dL 70-110 H = 652) HGB/HCT (H&H) - STAT [id number] 22:10:00 Test Item Value Reference Range Interpretation Comments HEMOGLOBIN (BEAKER) (test code = 7.6 GM/DL 13.0-16.8 L 410) HEMATOCRIT (BEAKER) (test code = 22.0 % 40.0-50.0 L 411) BLOOD GAS, [id number] 22:10:00 Test Item Value Reference Range Interpretation [...] (BEAKER) (test code = 1819) 40.0 POTASSIUM-STAT [id number] 22:07:00 Test Item Value Reference Range Interpretation Comments POTASSIUM (BEAKER) (test code = 3.8 meq/L 3.6-5.5 379) BASIC METABOLIC [id number] 18:50:00 Test Item Value Reference Range Interpretation [...] S NOT APPLICABLE FOR DIALYSIS PATIEN TS. [employer] [place] Worker ID - [id number] 18:50:00 Test Item Value Reference Range Interpretation Comments MAGNESIUM (BEAKER) (test code = 2.2 mg/dL 1.6-2.6 627) [place] Worker ID - [id number] 18:50:00 Test Item Value Reference Range Interpretation Comments PHOSPHORUS (BEAKER) (test code = 3.1 mg/dL 2.3-4.7 604) [place] Worker ID - CDPPOCT-GLUCOSE [id number] 13:09:00 Test Item Value Reference Range Interpretation Comments POC-GLUCOSE METER 101 mg/dL 70-110 : TESTED A T [facility] 6720 (BEAKER) (test code = [place], 1538) 82603: [place] Worker/Techni won ID = [id number] for KISHORE VELASQUEZ CBC W/PLT COUNT & AUTO [id number] 12:45:00 Test Item Value Reference Range Interpretation [...] H PERCENT (BEAKER) (test code = 2801) [id number] 12:38:00 Test Item Value Reference Range Interpretation Comments MAGNESIUM (BEAKER) (test code = 2.0 mg/dL 1.6-2.6 627) [employer] [place] Worker ID - LINA [id number] 12:38:00 Test Item Value Reference Range Interpretation Comments PHOSPHORUS (BEAKER) (test code = 3.5 mg/dL 2.3-4.7 604) [employer] [place] Worker ID - LINA [id number] 12:38:00 Test Item Value Reference Range Interpretation Comments POTASSIUM (BEAKER) (test code = 4.4 meq/L 3.5-5.1 379) [employer] [place] Worker ID - LINA LHEPATIC FUNCTION [id number] 10:44:00 Test Item Value Reference Range Interpretation [...] code = 427 U/L 6-55 H 347) [employer] [place] Worker ID - LINA LBLOOD GAS, [id number] 10:40:00 Test Item Value Reference Range Interpretation [...] 1819) 40.0 RAD, CHEST, 1 VIEW, NON [id number] 08:49:00Reason for exam:- >intubatedShould this be performed at the bedside?->Yes [facility] 1975 Sex: MFINAL REPORT CLINICAL HISTORY: intubated TECHNIQUE: 1 view of the [address] COMPARISON: 01/23/2021 IMPRESSION: The supporting lines and tubes are similar appearing. Bilateral airspace opacities are similar. A small pleural effusions unchanged. The cardiomediastinal silhouette is magnified by technique with sternotomy wires. Signed: Melodie Zarate MDReport Verified Date/Time: 01/24/2021 08:49:07 Reading Location: [facility] Radiology Reading Room BASIC METABOLIC [id number] 03:54:00 Test Item Value Reference Range Interpretation [...] S NOT APPLICABLE FOR DIALYSIS PATIEN TS. [employer] [place] Worker ID - VALDEZ [id number] 03:54:00 Test Item Value Reference Range Interpretation Comments MAGNESIUM (BEAKER) (test code = 2.2 mg/dL 1.6-2.6 627) [place] Worker ID - VALDEZ [id number] 03:54:00 Test Item Value Reference Range Interpretation Comments PHOSPHORUS (BEAKER) (test code = 2.8 mg/dL 2.3-4.7 604) [place] Worker ID - VALDEZ [id number] 03:49:00 Test Item Value Reference Range Interpretation Comments PARTIAL THROMBOPLASTIN TIME 36.8 seconds 22.5-36.0 H (BEAKER) (test code = 760) PROTHROMBIN [id number] 03:48:00 Test Item Value Reference Range Interpretation Comments PROTIME (BEAKER) 18.6 seconds 11.9-14.2 H (test code = 759) INR (BEAKER) (test 1.57 See_Comment [Automat ed message] code = 370) The system [employer] generated this result transmitted ref erence range: [...] (BEAKER) (test code = 2801) LACTIC ACID, [id number] 03:37:00 Test Item Value Reference Range Interpretation Comments LACTATE BLOOD ARTERIAL (2) 1.4 mmol/L 0.5-2.2 (BEAKER) (test code = 2874) [place] [place] Worker ID - VALDEZ MBLOOD GAS, [id number] 03:26:00 Test Item Value Reference Range Interpretation [...] (BEAKER) (test code = 1819) 40.0 CALCIUM, [id number] 03:24:00 Test Item Value Reference Range Interpretation Comments CALCIUM IONIZED (BEAKER) (test 1.20 mmol/L 1.12-1.27 code = 698) PH, BLOOD (BEAKER) (test code = 7.48 1810) OXYGEN SATURATION, [id number] 03:23:00 Test Item Value Reference Range Interpretation Comments O2 SATURATION (MEASURED) (BEAKER) 64.1 % (test code = 1455) CBC W/PLT COUNT & AUTO [id number] 01:33:00 Test Item Value Reference Range Interpretation [...] (BEAKER) (test code = 2801) LACTIC ACID, [id number] 00:48:00 Test Item Value Reference Range Interpretation Comments LACTATE BLOOD ARTERIAL (2) 1.4 mmol/L 0.5-2.2 (BEAKER) (test code = 2874) [place] [place] Worker ID - LINA LBLOOD GAS, [id number] 00:37:00 Test Item Value Reference Range Interpretation [...] (BEAKER) (test code = 1819) 40.0 POCT-GLUCOSE [id number] 23:22:00 Test Item Value Reference Range Interpretation Comments POC-GLUCOSE METER 102 mg/dL 70-110 : TESTED A T [facility] 6720 (BEAKER) (test code = NORM SHULTZ MS, 1538) 79106: [place] Worker/Techni won ID = [id number] for ARI MAYER [id number] 22:00:00 Test Item Value Reference Range Interpretation Comments MAGNESIUM (BEAKER) 2.1 mg/dL 1.6-2.6 Specimen slightly (test code = 627) hemolyzed [place] Worker ID - [id number] 22:00:00 Test Item Value Reference Range Interpretation Comments PHOSPHORUS (BEAKER) 3.0 mg/dL 2.3-4.7 Specimen slightly (test code = 604) hemolyzed [place] Worker ID - DBBASIC METABOLIC [id number] 22:00:00 Test Item Value Reference Range Interpretation [...] S NOT APPLICABLE FOR DIALYSIS PATIEN TS. [place] [place] Worker ID - DBCBC W/PLT COUNT & AUTO [id number] 21:49:00 Test Item Value Reference Range Interpretation [...] H PERCENT (BEAKER) (test code = 2801) [id number] 21:45:00 Test Item Value Reference Range Interpretation Comments Fibrinogen (test code = 3255-7) 253 mg/dl 225-434 Lab Interpretation (test code = Normal 27476-9) [facility] 21:45:00 Test Item Value Reference Range Interpretation Comments Fibrinogen (test code = 3255-7) 253 mg/dl 225-434 Lab Interpretation (test code = Normal 96987-2) [facility] 21:45:00 Test Item Value Reference Range Interpretation Comments Fibrinogen (test code = 3255-7) 253 mg/dl 225-434 Lab Interpretation (test code = Normal 11065-4) [facility] 21:45:00 Test Item Value Reference Range Interpretation Comments FIBRINOGEN LEVEL (BEAKER) (test 253 mg/dl 225-434 code = 658) [id number] 21:45:00 Test Item Value Reference Range Interpretation Comments PARTIAL THROMBOPLASTIN TIME 37.3 seconds 22.5-36.0 H (BEAKER) (test code = 760) PROTHROMBIN TIME/[id number] 21:44:00 Test Item Value Reference Range Interpretation Comments PROTIME (BEAKER) 19.4 seconds 11.9-14.2 H (test code = 759) INR (BEAKER) (test 1.66 See_Comment [Automat ed message] code = 370) The system [employer] generated this result transmitted ref erence range: <=5.90. The reference range was not used to int erpret this result as normal/abnormal . RECOMMENDED COUMADIN/WARFARIN INR THERAPY RANGESSTANDARD DOSE: 2.0 - 3.0 Includes: PROPHYLAXIS forvenous thrombosis, systemic embolization; TREATMENT for venous thrombosis and/or pulmonary embolus.HIGH RISK: Target INR is 2.5-3.5 for patients with mechanical heart valves.CALCIUM, [id number] 21:36:00 Test Item Value Reference Range Interpretation Comments CALCIUM IONIZED (BEAKER) (test 1.10 mmol/L 1.12-1.27 L code = 698) PH, BLOOD (BEAKER) (test code = 7.54 1810) BLOOD GAS, [id number] 21:36:00 Test Item Value Reference Range Interpretation [...] (BEAKER) (test code = 1819) 40.0 POCT-GLUCOSE [id number] 18:58:00 Test Item Value Reference Range Interpretation Comments POC-GLUCOSE METER 84 mg/dL 70-110 : TESTED A T [facility] 6720 (BEAKER) (test code = NORM SHULTZ MS, 1538) 06355: [place] [place] Worker/Techni won ID = [id number] for Mirna Tanner (contract), Tania lowery CBC W/PLT COUNT & AUTO [id number] 18:08:00 Test Item Value Reference Range Interpretation [...] (BEAKER) (test code = 2801) OXYGEN SATURATION, [id number] 17:48:00 Test Item Value Reference Range Interpretation Comments O2 SATURATION (MEASURED) (BEAKER) 82.4 % (test code = 1455) CBC W/PLT COUNT & AUTO [id number] 17:46:00 Test Item Value Reference Range Interpretation [...] (BEAKER) (test code = 2801) Comprehensive metabolic [id number] 16:31:00 Test Item Value Reference Range Interpretation Comments Protein, Total (test 5.2 See_Comment L [Autom ated code = 2885-2) message] The system which generated this result transmit ari reference range : 6.0 - 8.3 gm/dL . The reference range was not u sed to interpret th is result as normal/abnormal . Albumin (test code = 2.6 g/dL 3.5-5 L 08751-3) Alkaline Phosphatase 89 U/L 40-150 (test code = 6768-6) Total Bilirubin (test 0.8 mg/dL 0.2-1.2 code = 1974-2) Sodium (test code = 139 meq/L 093-174 9572-2) Potassium (test code 4.1 meq/L 3.5-5.1 = 2823-3) Chloride (test code = 105 meq/L 98-107 2074-0) CO2 (test code = 26 meq/L 22-29 2027-9) BUN (test code = 20 mg/dL 12-28 3094-0) Creatinine (test code 1.88 mg/dL 0.57-1.25 H = 2160-0) Glucose (test code = 113 mg/dL 70-105 H 2345-7) Calcium (test code = 8.2 mg/dL 8.4-10.2 L 20904-7) AST (test code = 772 U/L 5-34 H 1920-8) ALT (test code = 533 U/L 6-55 H 1742-6) EGFR (test code = 48 mL/min/1.[place] [address]-3) NOT ACCURATE CREATININE CLEARANCE IN PREDICTING GLOMERULAR FILTRATION RATE . ESTIMATED GFR I S NOT APPLICABLE FOR DIALYSIS PATIEN CARLEY (test code = CARLEY) [place] [place] Worker ID - JESUS Lab Interpretation Abnormal (test code = 39974-2) [facility] HospitalCom[facility] [id number] 16:31:00 Test Item Value Reference Range Interpretation Comments Protein, Total (test 5.2 See_Comment L [Autom ated code = 2885-2) message] The system which generated this result transmit ari reference range : 6.0 - 8.3 gm/dL . The reference range was not u sed to interpret th is result as normal/abnormal . Albumin (test code = 2.6 g/dL 3.5-5 L 77798-8) Alkaline Phosphatase 89 U/L 40-150 (test code = 6768-6) Total Bilirubin (test 0.8 mg/dL 0.2-1.2 code = 1974-2) Sodium (test code = 139 meq/L 445-790 3203-2) Potassium (test code 4.1 meq/L 3.5-5.1 = 2823-3) Chloride (test code = 105 meq/L 98-107 2075-0) CO2 (test code = 26 meq/L 2028-02) BUN (test code = 20 mg/dL 12-28 3094-0) Creatinine (test code 1.88 mg/dL 0.57-1.25 H = 2160-0) Glucose (test code = 113 mg/dL 70-105 H 2345-7) Calcium (test code = 8.2 mg/dL 8.4-10.2 L 10275-1) AST (test code = 772 U/L 5-34 H 1920-8) ALT (test code = 533 U/L 6-55 H 1742-6) EGFR (test code = 48 mL/min/1.[place] [address]-4) NOT ACCURATE CREATININE CLEARANCE IN PREDICTING GLOMERULAR FILTRATION RATE . ESTIMATED GFR I S NOT APPLICABLE FOR DIALYSIS PATIEN TS. HOWE (test code = CARLEY) [employer] [place] Worker ID - JUN Lab Interpretation Abnormal (test code = 39671-7) [facility] [id number] 16:31:00 Test Item Value Reference Range Interpretation Comments Protein, Total (test 5.2 See_Comment L [Autom ated code = 2885-2) message] The system which generated this result transmit ari reference range : 6.0 - 8.3 gm/dL . The reference range was not u sed to interpret th is result as normal/abnormal . Albumin (test code = 2.6 g/dL 3.5-5 L 92199-1) Alkaline Phosphatase 89 U/L 40-150 (test code = 6768-6) Total Bilirubin (test 0.8 mg/dL 0.2-1.2 code = 1974-2) Sodium (test code = 139 meq/L 725-161 0880-2) Potassium (test code 4.1 meq/L 3.5-5.1 = 2823-3) Chloride (test code = 105 meq/L 98-107 2075-0) CO2 (test code = 26 meq/L 22-29 2027-9) BUN (test code = 20 mg/dL 7- 3094-0) Creatinine (test code 1.88 mg/dL 0.57-1.25 H = 2160-0) Glucose (test code = 113 mg/dL 70-105 H 2345-7) Calcium (test code = 8.2 mg/dL 8.4-10.2 L 64921-6) AST (test code = 772 U/L 5-34 H 1920-8) ALT (test code = 533 U/L 6-55 H 1742-6) EGFR (test code = 48 mL/min/1.[place] [address]-9) NOT ACCURATE CREATININE CLEARANCE IN PREDICTING GLOMERULAR FILTRATION RATE . ESTIMATED GFR I S NOT APPLICABLE FOR DIALYSIS PATIEN TS. CARLEY (test code = CARLEY) [employer] [place] Worker ID - JESUS Lab Interpretation Abnormal (test code = 02295-0) [facility] HospitalCOMPREHENSIVE METABOLIC [id number] 16:31:00 Test Item Value Reference Range Interpretation [...] S NOT APPLICABLE FOR DIALYSIS PATIEN TS. [place] [place] Worker ID - [id number] 16:31:00 Test Item Value Reference Range Interpretation Comments MAGNESIUM (BEAKER) (test code = 2.3 mg/dL 1.6-2.6 627) [place] Worker ID - [id number] 16:31:00 Test Item Value Reference Range Interpretation Comments PHOSPHORUS (BEAKER) (test code = 4.2 mg/dL 2.3-4.7 604) [place] [place] Worker ID - JESUSLACTIC ACID, [id number] 16:27:00 Test Item Value Reference Range Interpretation Comments LACTATE BLOOD ARTERIAL (2) 2.0 mmol/L 0.5-2.2 (BEAKER) (test code = 2874) [place] [place] Worker ID - JENAE, CHEST, 1 VIEW, NON [id number] 16:17:00Reason for exam:->post opShould this be performed at the bedside?->Yes [facility] 1975 Sex: MFINAL [...] Ferrell Verified Date/Time: 01/23/2021 16:17:46 Reading Location: [address] Reading Room [id number] 16:15:00 Test Item Value Reference Range Interpretation Comments FIBRINOGEN LEVEL (BEAKER) (test 274 mg/dl 225-434 code = 658) [id number] 16:15:00 Test Item Value Reference Range Interpretation Comments PARTIAL THROMBOPLASTIN TIME 39.6 seconds 22.5-36.0 H (BEAKER) (test code = 760) PROTHROMBIN TIME/[id number] 16:14:00 Test Item Value Reference Range Interpretation Comments PROTIME (BEAKER) 19.0 seconds 11.9-14.2 H (test code = 759) INR (BEAKER) (test 1.62 See_Comment [Automat ed message] code = 370) The system [employer] generated this result transmitted ref erence range: <=5.90. The reference range was not used to int erpret this result as normal/abnormal . RECOMMENDED COUMADIN/WARFARIN INR THERAPY RANGESSTANDARD DOSE: 2.0 - 3.0 Includes: PROPHYLAXIS forvenous thrombosis, systemic embolization; TREATMENT for venous thrombosis and/or pulmonary embolus.HIGH RISK: Target INR is 2.5-3.5 for patients with mechanical heart valves.BLOOD GAS, [id number] 16:01:00 Test Item Value Reference Range Interpretation [...] (BEAKER) (test code = 1819) 60.0 POTASSIUM-STAT [id number] 16:01:00 Test Item Value Reference Range Interpretation Comments POTASSIUM (BEAKER) (test code = 3.9 meq/L 3.6-5.5 379) GLUCOSE-STAT [id number] 16:01:00 Test Item Value Reference Range Interpretation Comments GLUCOSE RANDOM (BEAKER) (test code 117 mg/dL 70-110 H = 652) HGB/HCT (H&H) - STAT [id number] 16:01:00 Test Item Value Reference Range Interpretation Comments HEMOGLOBIN (BEAKER) (test code = 7.6 GM/DL 13.0-16.8 L 410) HEMATOCRIT (BEAKER) (test code = 22.0 % 40.0-50.0 L 411) SODIUM NA-STAT [id number] 16:00:00 Test Item Value Reference Range Interpretation Comments SODIUM (BEAKER) (test code = 381) 136 meq/L 136-145 [id number] 14:05:00 Test Item Value Reference Range Interpretation Comments FIBRINOGEN LEVEL (BEAKER) (test 265 mg/dl 225-434 code = 658) [id number] 14:05:00 Test Item Value Reference Range Interpretation Comments PARTIAL THROMBOPLASTIN TIME 51.7 seconds 22.5-36.0 H (BEAKER) (test code = 760) PROTHROMBIN TIME/[id number] 14:04:00 Test Item Value Reference Range Interpretation Comments PROTIME (BEAKER) 19.9 seconds 11.9-14.2 H (test code = 759) INR (BEAKER) (test 1.72 See_Comment [Automat ed message] code = 370) The system [employer] generated this result transmitted ref erence range: <=5.90. The reference range was not used to int erpret this result as normal/abnormal . RECOMMENDED COUMADIN/WARFARIN INR THERAPY RANGESSTANDARD DOSE: 2.0 - 3.0 Includes: PROPHYLAXIS forvenous thrombosis, systemic embolization; TREATMENT for venous thrombosis and/or pulmonary embolus.HIGH RISK: Target INR is 2.5-3.5 for patients with mechanical heart valves.Platelet [id number] 14:01:00 Test Item Value Reference Range Interpretation Comments Platelets (test code 113 See_Comment L [Autom ated = 777-3) message] The system which generated this result transmit ari reference range : 150 - 450 K/CU MM. The reference range was not u sed to interpret th is result as normal/abnormal . CARLEY (test code = CARLEY) [employer] [place] Worker ID - [id number] ID - [id number] Lab Interpretation Abnormal (test code = 46451-5) [facility] HospitalPlatelet [id number] 14:01:00 Test Item Value Reference Range Interpretation Comments Platelets (test code 113 See_Comment L [Autom ated = 777-3) message] The system which generated this result transmit ari reference range : 150 - 450 K/CU MM. The reference range was not u sed to interpret th is result as normal/abnormal . CARLEY (test code = CARLEY) [employer] [place] Worker ID - [id number] ID - [id number] Lab Interpretation Abnormal (test code = 24423-8) [facility] HospitalPlatelet [id number] 14:01:00 Test Item Value Reference Range Interpretation Comments Platelets (test code 113 See_Comment L [Autom ated = 777-3) message] The system which generated this result transmit ari reference range : 150 - 450 K/CU MM. The reference range was not u sed to interpret th is result as normal/abnormal . CARLEY (test code = CARLEY) [employer] [place] Worker ID - [id number] ID - [id number] Lab Interpretation Abnormal (test code = 79849-7) [facility] HospitalPLATELET [id number] 14:01:00 Test Item Value Reference Range Interpretation Comments PLATELET COUNT (BEAKER) (test 113 K/CU MM 150-450 L code = 756) [employer] [place] Worker ID - [id number] ID - [id number] NA-STAT [id number] 13:50:00 Test Item Value Reference Range Interpretation Comments SODIUM (BEAKER) (test code = 381) 136 meq/L 136-145 POTASSIUM-STAT [id number] 13:50:00 Test Item Value Reference Range Interpretation Comments POTASSIUM (BEAKER) (test code = 4.4 meq/L 3.6-5.5 379) CALCIUM, [id number] 13:50:00 Test Item Value Reference Range Interpretation Comments CALCIUM IONIZED (BEAKER) (test 1.13 mmol/L 1.12-1.27 code = 698) PH, BLOOD (BEAKER) (test code = 7.43 1810) BLOOD GAS, [id number] 13:50:00 Test Item Value Reference Range Interpretation [...] (BEAKER) (test code = 1819) 50.0 GLUCOSE-STAT [id number] 13:50:00 Test Item Value Reference Range Interpretation Comments GLUCOSE RANDOM (BEAKER) (test code 111 mg/dL 70-110 H = 652) HGB/HCT (H&H) - STAT [id number] 13:50:00 Test Item Value Reference Range Interpretation Comments HEMOGLOBIN (BEAKER) (test code = 8.8 GM/DL 13.0-16.8 L 410) HEMATOCRIT (BEAKER) (test code = 26.0 % 40.0-50.0 L 411) ANG, TUNNELED CATHETER [id number] 11:20:00Reason for Central Line/PICC?->Need for hemodialysis accessReason for exam:->[facility] : 1975 Sex: MFINAL REPORT Tunneled dialysis catheter insertion. History: Renal failure. Modality: Sonography and fluoroscopy. Sedation: none Cloud Physicist: Williams Garrett M.D. Drinking Water Technician: Vannesa Owen MD. Approach: Right internal jugular [...] needle into the right atrium. A 4 Bermudian micropuncture sheath was placed and a 0.035 wire was advanced into the IVC. A subcutaneous tunnel was created in the right anterior chest wall by blunt dissection. A 19 cm tip to cuff 15.5 B[place]udian Duraflow 2 catheter was brought through the [...] Verified Date/Time: 01/23/2021 11:20:38 IR Tunneled Catheter [id number] 11:20:00Interface, External Ris In - 01/23/2021 11:22 AM CDTFINAL REPORT Tunneled dialysis catheter insertion. History: Renal failure. Modality: Sonography and fluoroscopy. Sedation: none Cloud Physicist: Williams Garrett M.D. Drinking Water Technician: Vannesa Owen MD. Approach: Right internal jugular [...] needle into the right atrium. A 4 Bermudian micropuncture sheath was placed and a 0.035 wire was advanced into the IVC. A subcutaneous tunnel was created in the right anterior chest wall by blunt dissection. A 19 cm tip to cuff 15.5 B[place] Duraflow 2 catheter was brought through the [...] Williams Garrett MDReport Verified Date/Time: 01/23/2021 11:20:38 [facility] [id number] 11:20:00Interface, External Ris In - 01/23/2021 11:22 AM CDTFINAL REPORT Tunneled dialysis catheter insertion. History: Renal failure. Modality: Sonography and fluoroscopy. Sedation: none Cloud Physicist: Williams Garrett M.D. Drinking Water Technician: Vannesa Owen MD. Approach: Right internal jugular [...] needle into the right atrium. A 4 Bermudian micropuncture sheath was placed and a 0.035 wire was advanced into the IVC. A subcutaneous tunnel was created in the right anterior chest wall by blunt dissection. A 19 cm tip to cuff 15.5 B[place]ian Duraflow 2 cat heter was brought through [...] Williams Garrett MDReport Verified Date/Time: 01/23/2021 11:20:38 [facility] [id number] 11:20:00Interface, External Ris In - 01/23/2021 11:22 AM CDTFINAL REPORT Tunneled dialysis catheter insertion. History: Renal failure. Modality: Sonography and fluoroscopy. Sedation: none Cloud Physicist: Williams Garrett M.D. Drinking Water Technician: Vannesa Owen MD. Approach: Right internal jugular [...] needle into the right atrium. A 4 Bermudian micropuncture sheath was placed and a 0.035 wire was advanced into the IVC. A subcutaneous tunnel was created in the right anterior chest wall by blunt dissection. A 19 cm tip to cuff 15.5 B[place] Duraflow 2 cat heter was brought through [...] Williams Garrett MDReport Verified Date/Time: 01/23/2021 11:20:38 [facility] CenterManual [id number] 10:57:00 Test Item Value Reference Range Interpretation [...] = 3438) CARLEY (test code = CARLEY) [employer] Worker ID - [id number] ID - Sun Menendez comments: Slide comments: Lab Interpretation (test Abnormal code = 28021-5) [facility] [id number] 10:57:00 Test Item Value Reference Range Interpretation [...] = 3438) CARLEY (test code = CARLEY) [employer] Worker ID - [id number] ID - Sun Menednez comments: Slide comments: Lab Interpretation (test Abnormal code = 73321-2) [facility] [id number] 10:57:00 Test Item Value Reference Range Interpretation [...] = 3438) CARLEY (test code = CARLEY) [employer] [place] Worker ID - [id number] ID - uSn Shon comments: Slide comments: Lab Interpretation (test Abnormal code = 13614-4) [facility](CELLAVISION MANUAL DIFF)2021-01-23 10:57:00 Test Item Value Reference [...] CONCENTRATION Decreased (CELLAVISION)(BEAKER) (test code = 3438) [employer] [place] Worker ID - [id number] ID - Sun Shon comments: Slide comments:MAGNESIUM 2021-01-23 10:10:00 Test Item Value Reference Range Interpretation Comments MAGNESIUM (BEAKER) 2.2 mg/dL 1.6-2.6 Specimen slightly (test code = 627) hemolyzed [employer] [place] Worker ID - [id number] 10:10:00 Test Item Value Reference Range Interpretation Comments PHOSPHORUS (BEAKER) 3.5 mg/dL 2.3-4.7 Specimen slightly (test code = 604) hemolyzed [employer] [place] Worker ID - JANPOCT-GLUCOSE [id number] 10:01:00 Test Item Value Reference Range Interpretation Comments POC-GLUCOSE METER 108 mg/dL 70-110 : TESTED A T [facility] 6720 (BEAKER) (test code = NORM SHULTZ MS, 1538) 27004: [place] Worker/Techni won ID = [id number] for Fo ntroquet, Levy CBC (HEMOGRAM ONLY)2021-01-23 [...] H (test code = 413) BASIC METABOLIC [id number] 04:53:00 Test Item Value Reference Range Interpretation [...] S NOT APPLICABLE FOR DIALYSIS PATIEN TS. [place] [place] Worker ID - [id number] 04:53:00 Test Item Value Reference Range Interpretation Comments MAGNESIUM (BEAKER) (test code = 2.2 mg/dL 1.6-2.6 627) [employer] [place] Worker ID - [id number] 04:53:00 Test Item Value Reference Range Interpretation Comments PHOSPHORUS (BEAKER) (test code = 2.9 mg/dL 2.3-4.7 604) [place] [place] Worker ID - DBPROTHROMBIN TIME/[id number] 04:43:00 Test Item Value Reference Range Interpretation Comments PROTIME (BEAKER) 24.0 seconds 11.9-14.2 H (test code = 759) INR (BEAKER) (test 2.17 See_Comment [Automat ed message] code = 370) The system [employer] generated this result transmitted ref erence range: <=5.90. The reference range was not used to int erpret this result as normal/abnormal . RECOMMENDED COUMADIN/WARFARIN INR THERAPY RANGESSTANDARD DOSE: 2.0 - 3.0 Includes: PROPHYLAXIS forvenous thrombosis, systemic embolization; TREATMENT for venous thrombosis and/or pulmonary embolus.HIGH RISK: Target INR is 2.5-3.5 for patients with mechanical heart valves.[id number] 04:43:00 Test Item Value Reference Range Interpretation Comments PARTIAL THROMBOPLASTIN TIME 46.2 seconds 22.5-36.0 H (BEAKER) (test code = 760) CBC W/PLT COUNT & AUTO [id number] 04:38:00 Test Item Value Reference Range Interpretation [...] 0-0 (test code = 413) LACTIC ACID, [id number] 04:27:00 Test Item Value Reference Range Interpretation Comments LACTATE BLOOD 2.2 mmol/L 0.5-2.2 Specimen sligh tly ARTERIAL (2) (BEAKER) hemoly zed (test code = 2874) [employer] [place] Worker ID - DBBLOOD GAS, [id number] 04:14:00 Test Item Value Reference Range Interpretation [...] (test code = 1819) 60.0 OXYGEN SATURATION, [id number] 04:14:00 Test Item Value Reference Range Interpretation Comments O2 SATURATION (MEASURED) (BEAKER) 67.7 % (test code = 1455) CALCIUM, [id number] 04:14:00 Test Item Value Reference Range Interpretation Comments CALCIUM IONIZED (BEAKER) (test 1.18 mmol/L 1.12-1.27 code = 698) PH, BLOOD (BEAKER) (test code = 7.50 1810) RAD, CHEST, 1 VIEW, NON [id number] 03:56:00Reason for exam:->chest tubes, s/p cardiac surgeryShould this be performed at the bedside?->[facility] 1975 Sex: MFINAL REPORT RAD, CHEST, 1 VIEW, NON DEPT INDICATION: chest tubes, s/p cardiac surgery COMPARISON: Prior day's exam FINDINGS: Portable frontal view of the chest. IMPRESSION: Support Lines: Stable. Lungs and pleura: Unchanged airspace and pleural opacities. No pneumothorax.Heart and mediastinum: Stable contours. Stable surgical changes.Additional findings: None. Signed: Sae Pinon Verified Date/Time: 01/23/2021 03:56:28 [id number] 01:12:00 Test Item Value Reference Range Interpretation Comments MAGNESIUM (BEAKER) 1.6 mg/dL 1.6-2.6 Specimen slightly (test code = 627) hemolyzed [place] [place] Worker ID - DBBASIC METABOLIC [id number] 01:12:00 Test Item Value Reference Range Interpretation [...] S NOT APPLICABLE FOR DIALYSIS PATIEN TS. [place] [place] Worker ID - DBLACTIC ACID, [id number] 01:08:00 Test Item Value Reference Range Interpretation Comments LACTATE BLOOD 2.9 mmol/L 0.5-2.2 H Specimen sligh tly ARTERIAL (2) (BEAKER) hemoly zed (test code = 2874) [employer] [place] Worker ID - DBCALCIUM, [id number] 00:35:00 Test Item Value Reference Range Interpretation Comments CALCIUM IONIZED (BEAKER) (test 1.17 mmol/L 1.12-1.27 code = 698) PH, BLOOD (BEAKER) (test code = 7.50 1810) BLOOD GAS, [id number] 00:35:00 Test Item Value Reference Range Interpretation [...] FIO2 (BEAKER) (test code = 1819) 60.0 [id number] 21:21:00 Test Item Value Reference Range Interpretation Comments PARTIAL THROMBOPLASTIN TIME 54.6 seconds 22.5-36.0 H (BEAKER) (test code = 760) PROTHROMBIN TIME/[id number] 21:20:00 Test Item Value Reference Range Interpretation Comments PROTIME (BEAKER) 28.7 seconds 11.9-14.2 H (test code = 759) INR (BEAKER) (test 2.73 See_Comment [Automat ed message] code = 370) The system [employer] generated this result transmitted ref erence range: <=5.90. The reference range was not used to int erpret this result as normal/abnormal . RECOMMENDED COUMADIN/WARFARIN INR THERAPY RANGESSTANDARD DOSE: 2.0 - 3.0 Includes: PROPHYLAXIS forvenous thrombosis, systemic embolization; TREATMENT for venous thrombosis and/or pulmonary embolus.HIGH RISK: Target INR is 2.5-3.5 for patients with mechanical heart valves.[id number] 21:20:00 Test Item Value Reference Range Interpretation Comments FIBRINOGEN LEVEL (BEAKER) (test 228 mg/dl 225-434 code = 658) [id number] 21:02:00 Test Item Value Reference Range Interpretation Comments PHOSPHORUS (BEAKER) (test code = 4.2 mg/dL 2.3-4.7 604) [place] Worker ID - DBLACTIC ACID, [id number] 21:00:00 Test Item Value Reference Range Interpretation Comments LACTATE BLOOD ARTERIAL (2) 3.6 mmol/L 0.5-2.2 H (BEAKER) (test code = 2874) [place] Worker ID - [id number] (HEMOGRAM ONLY)2021-01-22 20:50:00 Test [...] H (test code = 413) BLOOD GAS, [id number] 20:37:00 Test Item Value Reference Range Interpretation [...] (test code = 1819) 60.0 OXYGEN SATURATION, [id number] 20:37:00 Test Item Value Reference Range Interpretation Comments O2 SATURATION (MEASURED) (BEAKER) 45.7 % (test code = 1455) HGB/HCT (H&H) - STAT [id number] 20:37:00 Test Item Value Reference Range Interpretation Comments HEMOGLOBIN (BEAKER) (test code = 8.7 GM/DL 13.0-16.8 L 410) HEMATOCRIT (BEAKER) (test code = 26.0 % 40.0-50.0 L 411) GLUCOSE-STAT [id number] 20:36:00 Test Item Value Reference Range Interpretation Comments GLUCOSE RANDOM (BEAKER) (test code 110 mg/dL 70-110 = 652) SODIUM NA-STAT [id number] 20:36:00 Test Item Value Reference Range Interpretation Comments SODIUM (BEAKER) (test code = 381) 136 meq/L 136-145 POTASSIUM-STAT [id number] 20:36:00 Test Item Value Reference Range Interpretation Comments POTASSIUM (BEAKER) (test code = 4.2 meq/L 3.6-5.5 379) CT, CHEST, WITH [id number] 20:16:00Unlisted Reason for Exam - Click Yes and Enter Reason Below->No [facility] 1975 Sex: MFINAL [...] Sae Pinon Verified Date/Time: 01/22/2021 20:16:28 CT, [id number] 20:16:00Unlisted Reason for Exam - Click Yes and Enter Reason Below->YesUnlisted Reason for Exam->ruleout bleedWill this procedure require oral contrast?->No [facility] 1975 Sex: [...] Date/Time: 01/22/2021 20:16:28 CT chest with IV [id number] 20:16:00Interface, External Ris In - 01/22/2021 8:19 [...] Signed: Sae Pinon Verified Date/Time: 01/22/2021 20:16:28 [facility] [id number] 20:16:00Interface, External Ris In - 01/22/2021 8:19 [...] Signed: Sae Pinon Verified Date/Time: 01/22/2021 20:16:28 [facility] [id number] 20:16:00Interface, External Ris In - 01/22/2021 8:19 [...] Signed: Sae Pinon Verified Date/Time: 01/22/2021 20:16:28 [facility] [id number] 20:16:00Interface, External Ris In - 01/22/2021 8:19 [...] Signed: Sae Pinon Verified Date/Time: 01/22/2021 20:16:28 [facility] [id number] 20:16:00Interface, External Ris In - 01/22/2021 8:19 [...] Signed: Sae Pinon Verified Date/Time: 01/22/2021 20:16:28 [facility] [id number] 20:16:00Interface, External Ris In - 01/22/2021 8:19 [...] Signed: Sae Pinon Verified Date/Time: 01/22/2021 20:16:28 [facility], [id number] 18:28:00 Test Item Value Reference Range Interpretation [...] 1819) 60.0 RAD, CHEST, 1 VIEW, NON [id number] 18:14:00Reason for exam:->chest tubeShould this be performed at the bedside?->Yes [facility] 1975 Sex: MFINAL REPORT Chest one view. Clinical history: chest tube Comparison: 01/22/2021 Discussion: A frontal chest is provided. Cardiomediastinal contours are unchanged. Lines and tubes are in stable position. Left pleural- parenchymal opacities are unchanged. No pneumothorax. Signed: Sharla Lopez Verified Date/Time: 01/22/2021 18:14:34 Reading Location: [address] Ortho Consult Reading Room POCT-GLUCOSE [id number] 16:43:00 Test Item Value Reference Range Interpretation Comments POC-GLUCOSE METER 88 mg/dL 70-110 : TESTED A T [facility] 6720 (BEAKER) (test code = NORM SHULTZ MS, 1538) [id number]: [place] Worker/Techni won ID = [id number] for Font Levy allen 2D Echo W/Doppler(CW/PW/Color)2021-01-22 15:11:52Ejection [facility]ractionSEAST[facility] HEART[facility] MKCKESSON CPACSInterface, External Ris In - 01/22/2021 3:12 PM C DTTransthoracic Echocardiography Report (TTE) Demographics Patient Name CROW KAUR Date ofStudy 01/22/2021 RYAN SR. Gender Male Visit Number [id number] Race Unknown Room Number C823 Number Date of 1975 Referring Jes Ramos NP Physician Age 45 year(s) Programmer Business Jeffrey Montes [facility] Smoking Pipe Repairer Olvin Butler Interpreting Physician YUNIER Marks Procedure [...] TR Velocity: 2.68 m/s TR Gradient: 28.64 mmHgFrank R. Howard [facility] Hospital2D Echo W/Doppler(CW/PW/Color)2021-01-22 15:11:52Ejection FractionSLEH ECHO HEARTLAB ANGEL CPACSInterface, External Ris In - 01/22/2021 3:12 PM CDTTransthoracic Echocardiography Report (TTE) Demographics Patient Name CROW KAUR Date ofStudy 01/22/2021 RYAN SR. Gender Male Visit Number [id number] Race Unknown Room Number C823 Number Date of 1975 Referring Jes Ramos NP Physician Age 45 year(s) Programmer Business Jeffrey Montes [facility] Smoking Pipe Repairer Olvin Butler Interpreting Physician YUNIER Marks Procedure [...] TR Velocity: 2.68 m/s TR Gradient: 28.64 mmHgFrank R. Howard Memorial Hospital2D Echo W/Doppler(CW/PW/Color)2021-01-22 15:11:52Ejection FractionSLEH ECHO HEARTLAB MKCKESSON CPACSInterface, External Ris In - 01/22/2021 3:12 PM CDTTransthoracic Echocardiography Report (TTE) Demographics Patient Name CROW KAUR Date ofStudy 01/22/2021 RYAN SR. Gender Male Visit Number [id number] Race Unknown Room Number C823 Number Date of 1975 Referring Jes Ramos NP Physician Age 45 year(s) Programmer Business Jeffrey Montes [facility] Smoking Pipe Repairer Olvin Butler Interpreting Physician YUNIER Marks Procedure [...] TR Velocity: 2.68 m/s TR Gradient: 28.64 mmHgFrank R. Howard Memorial HospitalBLOOD GAS, [id number] 15:01:00 Test Item Value Reference Range Interpretation [...] 1819) 60.0 CBC W/PLT COUNT & AUTO [id number] 14:49:00 Test Item Value Reference Range Interpretation [...] CONCENTRATION Decreased (CELLAVISION)(BEAKER) (test code = 3438) [place] Worker ID - [id number] ID - Dariela OverholtUser comments: Slide comments: LACTIC ACID, [id number] 14:46:00 Test Item Value Reference Range Interpretation Comments LACTATE BLOOD ARTERIAL (2) (BEAKER) > mmol/L 0.5-2.2 HH (test code = 1874) [place] Worker ID - VALDEZ MBLOOD GAS, [id number] 14:45:00 Test Item Value Reference Range Interpretation [...] (BEAKER) (test code = 1819) 100.0 POCT-GLUCOSE [id number] 14:33:00 Test Item Value Reference Range Interpretation Comments POC-GLUCOSE METER 139 mg/dL 70-110 H : TESTED A T [facility] 6720 (BEAKER) (test code = NORM SHULTZ MS, 1538) 25818: [place] Worker/Techni won ID = [id number] for Ob iJoyce BASIC METABOLIC [id number] 14:30:00 Test Item Value Reference Range Interpretation [...] S NOT APPLICABLE FOR DIALYSIS PATIEN TS. [place] [place] Worker ID - VALDEZ [id number] 14:30:00 Test Item Value Reference Range Interpretation Comments MAGNESIUM (BEAKER) (test code = 2.0 mg/dL 1.6-2.6 627) [place] [place] Worker ID - VALDEZ [id number] 14:30:00 Test Item Value Reference Range Interpretation Comments PHOSPHORUS (BEAKER) (test code = 5.0 mg/dL 2.3-4.7 H 604) [employer] [place] Worker ID - VALDEZ MCALCIUM, [id number] 14:23:00 Test Item Value Reference Range Interpretation Comments CALCIUM IONIZED (BEAKER) (test 1.18 mmol/L 1.12-1.27 code = 698) PH, BLOOD (BEAKER) (test code = 7.36 1810) GLUCOSE-STAT [id number] 14:23:00 Test Item Value Reference Range Interpretation Comments GLUCOSE RANDOM (BEAKER) (test code = 58 mg/dL 70-110 L 652) HGB/HCT (H&H) - STAT [id number] 14:23:00 Test Item Value Reference Range Interpretation Comments HEMOGLOBIN (BEAKER) (test code = 7.0 GM/DL 13.0-16.8 L 410) HEMATOCRIT (BEAKER) (test code = 21.0 % 40.0-50.0 L 411) SODIUM NA-STAT [id number] 14:23:00 Test Item Value Reference Range Interpretation Comments SODIUM (BEAKER) (test code = 381) 138 meq/L 136-145 POTASSIUM-STAT [id number] 14:23:00 Test Item Value Reference Range Interpretation Comments POTASSIUM (BEAKER) (test code = 3.8 meq/L 3.6-5.5 379) OXYGEN SATURATION, [id number] 14:22:00 Test Item Value Reference Range Interpretation Comments O2 SATURATION (MEASURED) (BEAKER) 24.2 % (test code = 1455) [id number] 14:19:00 Test Item Value Reference Range Interpretation Comments PARTIAL THROMBOPLASTIN TIME 59.4 seconds 22.5-36.0 H (BEAKER) (test code = 760) PROTHROMBIN [id number] 14:18:00 Test Item Value Reference Range Interpretation Comments PROTIME (BEAKER) 28.1 seconds 11.9-14.2 H (test code = 759) INR (BEAKER) (test 2.66 See_Comment [Automat ed message] code = 370) The system [employer] generated this result transmitted ref erence range: <=5.90. The reference range was not used to int erpret this result as normal/abnormal . RECOMMENDED COUMADIN/WARFARIN INR THERAPY RANGESSTANDARD DOSE: 2.0 - 3.0 Includes: PROPHYLAXIS forvenous thrombosis, systemic embolization; TREATMENT for venous thrombosis and/or pulmonary embolus.HIGH RISK: Target INR is 2.5-3.5 for patients with mechanical heart valves.[id number] 14:18:00 Test Item Value Reference Range Interpretation Comments FIBRINOGEN LEVEL (BEAKER) (test 237 mg/dl 225-434 code = 658) POCT-GLUCOSE [id number] 14:08:00 Test Item Value Reference Range Interpretation Comments POC-GLUCOSE METER 57 mg/dL 70-110 L : TESTED A T [facility] 6720 (BEAKER) (test code = [facility], 1538) 68646: [place] Worker/Techni won ID = [id number] for Atwo od (V), Anurag POCT-GLUCOSE [id number] 13:35:00 Test Item Value Reference Range Interpretation Comments POC-GLUCOSE METER 66 mg/dL 70-110 L : TESTED A T [facility] 6720 (BEAKER) (test code = [facility], 1538) 04160: [place] Worker/Techni won ID = [id number] for Atwo od (V), Anurag BLOOD GAS, [id number] 12:16:00 Test Item Value Reference Range Interpretation [...] (test code = 1819) 60.0 LACTIC ACID, [id number] 11:59:00 Test Item Value Reference Range Interpretation Comments LACTATE BLOOD ARTERIAL (2) (BEAKER) > mmol/L 0.5-2.2 HH (test code = 2874) [place] [place] Worker ID - VALDEZ MPOCT-GLUCOSE [id number] 11:57:00 Test Item Value Reference Range Interpretation Comments POC-GLUCOSE METER 84 mg/dL 70-110 : TESTED A T [facility] 6720 (BEAKER) (test code = [facility], 1538) 21239: [place] Worker/Techni won ID = [id number] for VINOD, RONAL POCT-GLUCOSE [id number] 11:31:00 Test Item Value Reference Range Interpretation Comments POC-GLUCOSE METER 222 mg/dL 70-110 H : TESTED A T [facility] 6720 (BEAKER) (test code = [facility], 1538) 75386: [place] Worker/Techni won ID = [id number] for Curtis white (Anurag Arevalo POCT-GLUCOSE [id number] 11:29:00 Test Item Value Reference Range Interpretation Comments POC-GLUCOSE METER < mg/dL 70-110 LL : TESTED A T [facility] 6720 (BEAKER) (test code = [facility], 1538) 02608: [place] Worker/Techni won ID = [id number] for RONAL BROCK POCT-GLUCOSE [id number] 11:17:00 Test Item Value Reference Range Interpretation Comments POC-GLUCOSE METER 290 mg/dL 70-110 H : TESTED A T [facility] 6720 (BEAKER) (test code = [facility], 1538) 63678: [place] Worker/Techni won ID = [id number] for Mica Wynn POCT-GLUCOSE [id number] 11:14:00 Test Item Value Reference Range Interpretation Comments POC-GLUCOSE METER 45 mg/dL 70-110 L : TESTED A T [facility] 6720 (BEAKER) (test code = [facility], 1538) 66900: [place] Worker/Techni won ID = [id number] for Margareth noemíMica ECG 12 [id number] 10:49:43Interface, External Ris In 01/22/2021 10:49 AM CDTVentricular Rate 117 BPMAtrial Rate 141 BPMQRS Duration 104 msQ-T Interval 368 msQTC Calculation(Bazett) 513 msR Sharon -10 degreesT Sharon 130 degreesAtrial fibrillation with rapid ventricular responseST elevation consider inferior injury or acute infarctAbnormal ECGWhen compared with ECG of 16-JAN-2021 09:23,ST less depressed in Lateral leadsConfirmedby MD MOUNIKA, DELMAR ([id number]) on 01/22/2021 10:49:36 [facility] [id number] 10:49:43 Interface, External Ris In 01/22/2021 10:49 AM CDTVentricular Rate 117 BPMAtrial Rate 141 BPMQRS Duration 104 msQ-T Interval 368 msQTC Calculation(Bazett) 513 msR Sharon -10 degreesT Sharon 130 degreesAtrial fibrillation with rapid ventricular responseST elevation consider inferior injury or acute infarctAbnormal ECGWhen compared with ECG of 16-JAN-2021 09:23,ST less depressed in Lateral leadsConfirmedevelyn RIBERA MD, RUPA ([id number]) on 01/22/2021 10:49:36 [facility] [id number] 10:49:43 Interface, External Ris In - 01/22/2021 10:49 AM CDTVentricular Rate 117 BPMAtrial Rate 141 BPMQRS Duration 104 msQ-T Interval 368 msQTC Calculation(Bazett) 513 msR Sharon -10 degreesT Sharon 130 degreesAtrial fibrillation with rapid ventricular responseST elevation consider inferior injury or acute infarctAbnormal ECGWhen compared with ECG of 16-JAN-2021 09:23,ST less depressed in Lateral leadsConfirbrendon RIBERA MD, RUPA ([id number]) on 01/22/2021 10:49:36 [facility] CenterGLU[facility]STAT [id number] 10:46:00 Test Item Value Reference Range Interpretation Comments GLUCOSE RANDOM (BEAKER) (test code = 14 mg/dL 70-110 LL 652) SODIUM NA-STAT [id number] 10:43:00 Test Item Value Reference Range Interpretation Comments SODIUM (BEAKER) (test code = 381) 139 meq/L 136-145 POTASSIUM-STAT [id number] 10:43:00 Test Item Value Reference Range Interpretation Comments POTASSIUM (BEAKER) (test code = 4.4 meq/L 3.6-5.5 379) OXYGEN SATURATION, [id number] 10:43:00 Test Item Value Reference Range Interpretation Comments O2 SATURATION (MEASURED) (BEAKER) 39.1 % (test code = 1455) HGB/HCT (H&H) - STAT [id number] 10:43:00 Test Item Value Reference Range Interpretation Comments HEMOGLOBIN (BEAKER) (test code = 7.4 GM/DL 13.0-16.8 L 410) HEMATOCRIT (BEAKER) (test code = 22.0 % 40.0-50.0 L 411) [id number] 09:58:00 Test Item Value Reference Range Interpretation Comments PARTIAL THROMBOPLASTIN TIME 100.2 seconds 22.5-36.0 H (BEAKER) (test code = 760) RAD, CHEST, 1 VIEW, NON [id number] 09:56:00Reason for exam:->left chest tube placementShould this be performed at the bedside?->Yes [facility] 1975 Sex: [...] MDReport Verified Date/Time: 01/22/2021 09:56:49 Reading Location: [address] Body Reading Room LACTIC ACID, [id number] 09:38:00 Test Item Value Reference Range Interpretation Comments LACTATE BLOOD ARTERIAL (2) 11.8 mmol/L 0.5-2.2 HH (BEAKER) (test code = 2874) [place] Worker ID - VALDEZ [id number] 08:42:00 Test Item Value Reference Range Interpretation Comments PARTIAL THROMBOPLASTIN TIME > seconds 22.5-36.0 HH (BEAKER) (test code = 760) BLOOD GAS, [id number] 08:41:00 Test Item Value Reference Range Interpretation [...] = 1819) 100.0 HGB/HCT (H&H) - STAT [id number] 08:31:00 Test Item Value Reference Range Interpretation Comments HEMOGLOBIN (BEAKER) (test code = 6.0 GM/DL 13.0-16.8 LL 410) HEMATOCRIT (BEAKER) (test code = 18.0 % 40.0-50.0 L 411) GLUCOSE-STAT [id number] 08:21:00 Test Item Value Reference Range Interpretation Comments GLUCOSE RANDOM (BEAKER) (test code = 75 mg/dL 70-110 652) SODIUM NA-STAT [id number] 08:21:00 Test Item Value Reference Range Interpretation Comments SODIUM (BEAKER) (test code = 381) 136 meq/L 136-145 POTASSIUM-STAT [id number] 08:21:00 Test Item Value Reference Range Interpretation Comments POTASSIUM (BEAKER) (test code = 4.0 meq/L 3.6-5.5 379) OXYGEN SATURATION, [id number] 08:21:00 Test Item Value Reference Range Interpretation Comments O2 SATURATION (MEASURED) (BEAKER) 38.7 % (test code = 1455) RAD, CHEST, 1 VIEW, NON [id number] 07:21:00Reason for exam:->s/p code, intubationShould this be performed at the bedside?->Yes [facility] 1975 Sex: MFINAL [...] Cantueport Verified Date/Time: 01/22/2021 07:21:40 Reading Location: [address] Neuro Reading Room HEMOGLOBIN AND [id number] 07:19:00 Test Item Value Reference Range Interpretation Comments HEMOGLOBIN (BEAKER) (test code = 5.4 GM/DL 13.7-17.5 LL 410) HEMATOCRIT (BEAKER) (test code = 18.5 % 40.1-51.0 L 411) B[place]n Worker ID - [id number] ID - [id number] ID - [id number]-type Natriuretic Factor (BNP)2021-01-22 07:17:00 Test Item Value Reference Range Interpretation Comments BNP (test code = 62242-2) 2620 pg/mL 0-100 H CARLEY (test code = CARLEY) [place] [place] Worker ID - VALDEZ M Lab Interpretation (test Abnormal code = 23725-9) [facility] (BNP)2021-01-22 07:17:00 Test Item Value Reference Range Interpretation Comments BNP (test code = 85462-9) 2620 pg/mL 0-100 H CARLEY (test code = CARLEY) [place] [place] Worker ID - VALDEZ M Lab Interpretation (test Abnormal code = 98156-0) [facility] (BNP)2021-01-22 07:17:00 Test Item Value Reference Range Interpretation Comments BNP (test code = 86635-4) 2620 pg/mL 0-100 H CARLEY (test code = CARLEY) [place] [place] Worker ID - VALDEZ M Lab Interpretation (test Abnormal code = 68760-9) [facility] NATRIURETIC FACTOR (BNP)2021-01-22 07:17:00 Test Item Value Reference Range Interpretation Comments B-TYPE NATRIURETIC PEPTIDE 2620 pg/mL 0-100 H (BEAKER) (test code = 700) [place] Worker ID - VALDEZ [id number] 07:16:00 Test Item Value Reference Range Interpretation Comments PARTIAL THROMBOPLASTIN TIME > seconds 22.5-36.0 HH (BEAKER) (test code = 760) BASIC METABOLIC [id number] 07:11:00 Test Item Value Reference Range Interpretation [...] S NOT APPLICABLE FOR DIALYSIS PATIEN TS. [place] Worker ID - VALDEZ [id number] 07:10:00 Test Item Value Reference Range Interpretation Comments MAGNESIUM (BEAKER) (test code = 2.1 mg/dL 1.6-2.6 627) [place] Worker ID - VALDEZ [id number] 07:10:00 Test Item Value Reference Range Interpretation Comments PHOSPHORUS (BEAKER) (test code = 7.0 mg/dL 2.3-4.7 H 604) B[employer] [place] Worker ID - VALDEZ MHEPATIC FUNCTION [id number] 07:10:00 Test Item Value Reference Range Interpretation [...] code = 261 U/L 6-55 H 347) B[employer] [place] Worker ID - VALDEZ MLACTIC ACID, [id number] 07:09:00 Test Item Value Reference Range Interpretation Comments LACTATE BLOOD ARTERIAL (2) 12.6 mmol/L 0.5-2.2 HH (BEAKER) (test code = 2874) [place] Worker ID - VALDEZ MPROTHROMBIN TIME/[id number] 07:02:00 Test Item Value Reference Range Interpretation Comments PROTIME (BEAKER) 22.6 seconds 11.9-14.2 H (test code = 759) INR (BEAKER) (test 2.01 See_Comment [Automat ed message] code = 370) The system [employer] generated this result transmitted ref erence range: <=5.90. The reference range was not used to int erpret this result as normal/abnormal . RECOMMENDED COUMADIN/WARFARIN INR THERAPY RANGESSTANDARD DOSE: 2.0 - 3.0 Includes: PROPHYLAXIS forvenous thrombosis, systemic embolization; TREATMENT for venous thrombosis and/or pulmonary embolus.HIGH RISK: Target INR is 2.5-3.5 for patients with mechanical heart valves.[id number] 07:02:00 Test Item Value Reference Range Interpretation Comments FIBRINOGEN LEVEL (BEAKER) (test 306 mg/dl 225-434 code = 658) CALCIUM, [id number] 06:48:00 Test Item Value Reference Range Interpretation Comments CALCIUM IONIZED (BEAKER) (test 1.34 mmol/L 1.12-1.27 H code = 698) PH, BLOOD (BEAKER) (test code = 7.30 1810) BLOOD GAS, [id number] 06:47:00 Test Item Value Reference Range Interpretation [...] (test code = 1819) 100.0 OXYGEN SATURATION, [id number] 06:47:00 Test Item Value Reference Range Interpretation Comments O2 SATURATION (MEASURED) (BEAKER) 48.0 % (test code = 1455) CBC W/PLT COUNT & AUTO [id number] 03:53:00 Test Item Value Reference Range Interpretation [...] PERCENT (BEAKER) (test code = 2801) PROTHROMBIN [id number] 03:47:00 Test Item Value Reference Range Interpretation Comments PROTIME (BEAKER) 16.4 seconds 11.9-14.2 H (test code = 759) INR (BEAKER) (test 1.34 See_Comment [Automat ed message] code = 370) The system [employer] generated this result transmitted ref erence range: <=5.90. The reference range was not used to int erpret this result as normal/abnormal . RECOMMENDED COUMADIN/WARFARIN INR THERAPY RANGESSTANDARD DOSE: 2.0 - 3.0 Includes: PROPHYLAXIS forvenous thrombosis, systemic embolization; TREATMENT for venous thrombosis and/or pulmonary embolus.HIGH RISK: Target INR is 2.5-3.5 for patients with mechanical heart valves.LACTIC ACID, [id number] 03:35:00 Test Item Value Reference Range Interpretation Comments LACTATE BLOOD ARTERIAL (2) 8.3 mmol/L 0.5-2.2 HH (BEAKER) (test code = 2874) [place] Worker ID - VALDEZ [id number] 03:06:00 Test Item Value Reference Range Interpretation Comments MAGNESIUM (BEAKER) 2.2 mg/dL 1.6-2.6 Specimen slightly (test code = 627) hemolyzed [place] [place] Worker ID - VALDEZ [id number] 03:06:00 Test Item Value Reference Range Interpretation Comments PHOSPHORUS (BEAKER) 4.7 mg/dL 2.3-4.7 Specimen slightly (test code = 604) hemolyzed [place] [place] Worker ID - VALDEZ MBASIC METABOLIC [id number] 03:06:00 Test Item Value Reference Range Interpretation [...] S NOT APPLICABLE FOR DIALYSIS PATIEN TS. [place] [place] Worker ID - VALDEZ MCALCIUM, [id number] 02:59:00 Test Item Value Reference Range Interpretation Comments CALCIUM IONIZED (BEAKER) (test 1.21 mmol/L 1.12-1.27 code = 698) PH, BLOOD (BEAKER) (test code = 7.37 1810) BLOOD GAS, [id number] 02:59:00 Test Item Value Reference Range Interpretation [...] (test code = 1819) 36.0 OXYGEN SATURATION, [id number] 02:58:00 Test Item Value Reference Range Interpretation Comments O2 SATURATION (MEASURED) (BEAKER) 30.2 % (test code = 1455) [id number] 02:09:00 Test Item Value Reference Range Interpretation Comments PARTIAL THROMBOPLASTIN TIME 64.2 seconds 22.5-36.0 H (BEAKER) (test code = 760) RAD, CHEST, 1 VIEW, NON [id number] 01:42:00Reason for exam:->chest tubes, s/p cardiac surgeryShould this be performed at the bedside?->Yes [facility] 1975 Sex: MFINAL REPORT EXAM/TECHNIQUE: Single view frontal radiograph of the est. INDICATION: Chest tubes, status post cardiac surgery. COMPARISON: Chest radiography from 01/21/2021. FINDINGS: Devices/Objects: Right internal jugular central venous catheter terminates in the upper right atrium. Status post aortic valve placement. Feeding tube course below the diaphragm terminates below fqude-ro-cfke. Right chest tube is present. Lungs: Substantial increase in left pulmonary opacity and pleural effusion. Similar right basilar predominant pulmonary opacities. Heart/Mediastinum:Unchanged cardiomegaly. No interstitial thickening. Osseous: No acute osseous process. No suspiciousosseous lesion. Upper abdomen: Unremarkable. Impression: Substantial increase in left pleural effusion and pulmonary opacity. Signed: Philipp Booker MDReport Verified Date/Time: 01/22/2021 01:42:05 [id number] 23:19:00 Test Item Value Reference Range Interpretation Comments PARTIAL THROMBOPLASTIN TIME 113.7 seconds 22.5-36.0 H (BEAKER) (test code = 760) HEMOGLOBIN AND [id number] 22:54:00 Test Item Value Reference Range Interpretation Comments HEMOGLOBIN (BEAKER) (test code = 8.1 GM/DL 13.7-17.5 L 410) HEMATOCRIT (BEAKER) (test code = 26.2 % 40.1-51.0 L 411) [place] [place] Worker ID - [id number] METABOLIC [id number] 22:17:00 Test Item Value Reference Range Interpretation [...] S NOT APPLICABLE FOR DIALYSIS PATIEN TS. [place] Worker ID - [id number] 22:17:00 Test Item Value Reference Range Interpretation Comments MAGNESIUM (BEAKER) (test code = 2.0 mg/dL 1.6-2.6 627) [place] Worker ID - [id number] 22:17:00 Test Item Value Reference Range Interpretation Comments PHOSPHORUS (BEAKER) (test code = 2.8 mg/dL 2.3-4.7 604) [place] [place] Worker ID - DBPOCT-GLUCOSE [id number] 21:52:00 Test Item Value Reference Range Interpretation Comments POC-GLUCOSE METER 133 mg/dL 70-110 H : [facility] (BE[facility]ER[facility] (test code = NORM SHULTZ [place], 1538) 10118: [place] Worker/Techni won ID = [id number] for VINOD CHAUDHARY Blood Culture - Routine (Left Venipuncture)2021-01-21 20:00:00 Test Item Value Reference Range Interpretation Comments Result (test code = No growth in 5 days 6463-4) [facility] 2021-01-21 20:00:00 Test Item Value Reference Range Interpretation Comments Result (test code = No growth in 5 days 6463-4) [facility] 2021-01-21 20:00:00 Test Item Value Reference Range Interpretation Comments Result (test code = No growth in 5 days 6463-4) [facility] [id number] 20:00:00 Test Item Value Reference Range Interpretation Comments CULTURE (BEAKER) (test No growth in 5 days code = 1095) BLOOD [id number] 20:00:00 Test Item Value Reference Range Interpretation Comments CULTURE (BEAKER) (test No growth in 5 days code = 1095) BLOOD GAS, [id number] 19:08:00 Test Item Value Reference Range Interpretation [...] (BEAKER) (test code = 1819) 36.0 POCT-GLUCOSE [id number] 18:34:00 Test Item Value Reference Range Interpretation Comments POC-GLUCOSE METER 110 mg/dL 70-110 : TESTED A T [facility] 6720 (BEAKER) (test code = NORM Tenorio [facility], 1538) 64243: [place] Worker/Techni won ID = [id number] for RONAL PEREZ [id number] 17:37:00 Test Item Value Reference Range Interpretation [...] is 2.5-3.5 for patients with mechanical heart valves.PT/[id number] 12:20:00 Test Item Value Reference Range Interpretation [...] 2.5-3.5 for patients with mechanical heart valves.POCT-GLUCOSE [id number] 12:19:00 Test Item Value Reference Range Interpretation Comments POC-GLUCOSE METER 79 mg/dL 70-110 : TESTED A T [facility] 6720 (BEAKER) (test code = NORM Tam [facility], 1538) 41003: [place] Worker/Techni won ID = [id number] for RONAL BROCK BLOOD GAS, [id number] 12:04:00 Test Item Value Reference Range Interpretation [...] FIO2 (BEAKER) (test code = 1819) 40.0 [id number] 10:02:00 Test Item Value Reference Range Interpretation Comments MAGNESIUM (BEAKER) 2.3 mg/dL 1.6-2.6 Specimen moderately (test code = 627) hemolyzed [place] Worker ID - [id number] 10:02:00 Test Item Value Reference Range Interpretation Comments PHOSPHORUS (BEAKER) 3.0 mg/dL 2.3-4.7 Specimen moderately (test code = 604) hemolyzed [place] Worker ID - [id number] 10:02:00 Test Item Value Reference Range Interpretation Comments POTASSIUM (BEAKER) 4.3 meq/L 3.5-5.1 Specimen moderately (test code = 379) hemolyzed [place] Worker ID - BSPOCT-GLUCOSE [id number] 08:50:00 Test Item Value Reference Range Interpretation Comments POC-GLUCOSE METER 123 mg/dL 70-110 H : [facility] (BEAKER) (test code = RAYMONJACQUELINE SHULTZ [place], 1538) 20874: [place] Worker/Techni won ID = [id number] for RONAL PEREZ pH, [id number] 08:34:00 Test Item Value Reference Range Interpretation Comments pH, Arterial (test code = 2744-1) 7.44 7.35-7.45 Lab Interpretation (test code = Normal 60706-2) [facility], [id number] 08:34:00 Test Item Value Reference Range Interpretation Comments pH, Arterial (test code = 2744-1) 7.44 7.35-7.45 Lab Interpretation (test code = Normal 41305-5) [facility], [id number] 08:34:00 Test Item Value Reference Range Interpretation Comments pH, Arterial (test code = 2744-1) 7.44 7.35-7.45 Lab Interpretation (test code = Normal 00993-6) [facility], [id number] 08:34:00 Test Item Value Reference Range Interpretation Comments PH ARTERIAL (BEAKER) (test code = 383) 7.44 7.35-7.45 RAD, CHEST, 1 VIEW, NON [id number] 07:58:00Reason for exam:->chest tubes, s/p cardiac surgeryShould this be performed at the bedside?->Yes [facility] 1975 Sex: [...] MDReport Verified Date/Time: 01/21/2021 07:58:34 Reading Location: [address] Body Reading Room BASIC METABOLIC [...] S NOT APPLICABLE FOR DIALYSIS PATIEN TS. B[place] Worker ID - VALDEZ [id number] 05:44:00 Test Item Value Reference Range Interpretation Comments MAGNESIUM (BEAKER) (test code = 2.2 mg/dL 1.6-2.6 627) [place] Worker ID - VALDEZ MHEPATIC FUNCTION [id number] 05:44:00 Test Item Value Reference Range Interpretation [...] code = 476 U/L 6-55 H 347) [place] Worker ID - VALDEZ [id number] 03:57:00 Test Item Value Reference Range Interpretation Comments PARTIAL THROMBOPLASTIN TIME 86.2 seconds 22.5-36.0 H (BEAKER) (test code = 760) PROTHROMBIN [id number] 03:56:00 Test Item Value Reference Range Interpretation Comments PROTIME (BEAKER) 14.6 seconds 11.9-14.2 H (test code = 759) INR (BEAKER) (test 1.16 See_Comment [Automat ed message] code = 370) The system [employer] generated this result transmitted ref erence range: [...] (BEAKER) (test code = 2801) BLOOD GAS, [id number] 03:43:00 Test Item Value Reference Range Interpretation [...] (BEAKER) (test code = 1819) 40.0 CALCIUM, [id number] 03:42:00 Test Item Value Reference Range Interpretation Comments CALCIUM IONIZED (BEAKER) (test 1.22 mmol/L 1.12-1.27 code = 698) PH, BLOOD (BEAKER) (test code = 7.43 1810) POCT-GLUCOSE [id number] 00:09:00 Test Item Value Reference Range Interpretation Comments POC-GLUCOSE METER 103 mg/dL 70-110 : [facility] (BEAKER) (test code = NORM SHULTZ [place], 1538) 40981: [place] Worker/Techni won ID = [id number] for MARITZA LAURAVINOD LONDONO [id number] 22:06:00 Test Item Value Reference Range Interpretation Comments MAGNESIUM (BEAKER) 2.0 mg/dL 1.6-2.6 Specimen slightly (test code = 627) hemolyzed [place] Worker ID - [id number] 22:06:00 Test Item Value Reference Range Interpretation Comments PHOSPHORUS (BEAKER) 3.4 mg/dL 2.3-4.7 Specimen slightly (test code = 604) hemolyzed [place] Worker ID - [id number] 22:06:00 Test Item Value Reference Range Interpretation Comments POTASSIUM (BEAKER) 3.9 meq/L 3.5-5.1 Specimen slightly (test code = 379) hemolyzed [place] Worker ID - BSPH, [id number] 21:48:00 Test Item Value Reference Range Interpretation Comments PH ARTERIAL (BEAKER) (test code = 383) 7.44 7.35-7.45 [id number] 18:35:00 Test Item Value Reference Range Interpretation Comments POTASSIUM (BEAKER) 3.8 meq/L 3.5-5.1 Specimen slightly (test code = 379) hemolyzed [place] Worker ID - ADMINPOCT-GLUCOSE [id number] 18:20:00 Test Item Value Reference Range Interpretation Comments POC-GLUCOSE METER 92 mg/dL 70-110 : TESTED A T [facility] 6720 (BEAKER) (test code = [facility], 1538) 89272: B[place] Worker/Techni won ID = [id number] for RONAL BROCK [id number] 13:41:00 Test Item Value Reference Range Interpretation Comments POTASSIUM (BEAKER) 4.1 meq/L 3.5-5.1 Specimen slightly (test code = 379) hemolyzed [place] Worker ID - ADMINPOCT-GLUCOSE [id number] 11:57:00 Test Item Value Reference Range Interpretation Comments POC-GLUCOSE METER 91 mg/dL 70-110 : TESTED A T [facility] 6720 (BEAKER) (test code = [facility], 1538) 52224: [place] Worker/Techni won ID = [id number] for RONAL BROCK [id number] 10:33:00 Test Item Value Reference Range Interpretation Comments MAGNESIUM (BEAKER) (test code = 2.3 mg/dL 1.6-2.6 627) B[place] Worker ID - [id number] 10:33:00 Test Item Value Reference Range Interpretation Comments PHOSPHORUS (BEAKER) (test code = 3.2 mg/dL 2.3-4.7 604) B[place] Worker ID - [id number] 09:38:00 Test Item Value Reference Range Interpretation Comments PARTIAL THROMBOPLASTIN TIME 54.0 seconds 22.5-36.0 H (BEAKER) (test code = 760) PH, [id number] 09:17:00 Test Item Value Reference Range Interpretation Comments PH ARTERIAL (BEAKER) (test code = 383) 7.43 7.35-7.45 HEPATIC FUNCTION [id number] 07:42:00 Test Item Value Reference Range Interpretation [...] code = 659 U/L 6-55 H 347) B[place] Worker ID - ADMINBASIC METABOLIC [id number] 04:51:00 Test Item Value Reference Range Interpretation [...] S NOT APPLICABLE FOR DIALYSIS PATIEN TS. B[place] Worker ID - [id number] 04:49:00 Test Item Value Reference Range Interpretation Comments MAGNESIUM (BEAKER) (test code = 2.2 mg/dL 1.6-2.6 627) B[place] Worker ID - ADMINPROTHROMBIN TIME/[id number] 04:19:00 Test Item Value Reference Range Interpretation Comments PROTIME (BEAKER) 16.2 seconds 11.9-14.2 H (test code = 759) INR (BEAKER) (test 1.33 See_Comment [Automat ed message] code = 370) The system [employer] generated this result transmitted ref erence range: [...] (BEAKER) (test code = 2801) BLOOD GAS, [id number] 03:56:00 Test Item Value Reference Range Interpretation [...] (BEAKER) (test code = 1819) 40.0 CALCIUM, [id number] 03:56:00 Test Item Value Reference Range Interpretation Comments CALCIUM IONIZED (BEAKER) (test 1.17 mmol/L 1.12-1.27 code = 698) PH, BLOOD (BEAKER) (test code = 7.44 1810) RAD, CHEST, 1 VIEW, NON [id number] 03:04:00Reason for exam:->chest tubes, s/p cardiac surgeryShould this be performed at the bedside?->Yes [facility] 1975 Sex: MFINAL REPORT EXAM/TECHNIQUE: Single view frontal radiograph of the est. INDICATION: Chest tubes, status post cardiac surgery. COMPARISON: Chest radiography from 01/19/2021. FINDINGS: Devices/Objects: Feeding tube course below the diaphragm and terminates below kiaau-zw-xwpt. Endotracheal tube is unchanged. Left internal jugular central venous catheter is unchanged. Es ophageal temperature probe is present. Bilateral chest tubes are present. Lungs: Increased bilateralbasilar pulmonary opacities. No visible pneumothorax. Heart/Mediastinum: Unchanged cardiomegaly. Osseous: No acute osseous process. No suspicious osseous lesion. Upper abdomen: Unremarkable. Impression: Increasing bilateral basilar pulmonary opacities. Signed: Philipp Booker MDReport Verified Date/Time: 01/20/2021 03:04:06 [id number] 02:28:00 Test Item Value Reference Range Interpretation Comments PARTIAL THROMBOPLASTIN TIME 44.7 seconds 22.5-36.0 H (BEAKER) (test code = 760) [id number] 01:31:00 Test Item Value Reference Range Interpretation Comments POTASSIUM (BEAKER) 4.2 meq/L 3.5-5.1 Specimen slightly (test code = 379) hemolyzed [place] Worker ID - DBPOCT-GLUCOSE [id number] 00:31:00 Test Item Value Reference Range Interpretation Comments POC-GLUCOSE METER 107 mg/dL 70-110 : TESTED A T [facility] 6720 (BEAKER) (test code = NORM SHULTZ [place], 1538) 23759: B[place] Worker/Techni won ID = [id number] for Sadia Black HEMOGLOBIN AND [id number] 00:28:00 Test Item Value Reference Range Interpretation Comments HEMOGLOBIN (BEAKER) (test code = 7.5 GM/DL 13.7-17.5 L 410) HEMATOCRIT (BEAKER) (test code = 24.1 % 40.1-51.0 L 411) B[place] Worker ID - [id number] 21:20:00 Test Item Value Reference Range Interpretation Comments MAGNESIUM (BEAKER) (test code = 2.0 mg/dL 1.6-2.6 627) B[place] Worker ID - [id number] 21:20:00 Test Item Value Reference Range Interpretation Comments PHOSPHORUS (BEAKER) (test code = 3.6 mg/dL 2.3-4.7 604) B[place] Worker ID - [id number] 21:20:00 Test Item Value Reference Range Interpretation Comments POTASSIUM (BEAKER) (test code = 3.7 meq/L 3.5-5.1 379) B[place] Worker ID - [id number] 20:52:00 Test Item Value Reference Range Interpretation Comments PARTIAL THROMBOPLASTIN TIME 41.1 seconds 22.5-36.0 H (BEAKER) (test code = 760) PH, [id number] 20:36:00 Test Item Value Reference Range Interpretation Comments PH ARTERIAL (BEAKER) (test code = 383) 7.41 7.35-7.45 Vancomycin level, [id number] 17:55:00 Test Item Value Reference Range Interpretation Comments Vancomycin Tr (test code = 13.4 ug/mL 03-29 4092-3) CARLEY (test code = CARLEY) B[place] Worker ID - ADMIN Lab Interpretation (test Normal code = 00788-6) [facility] Hospital[facility] level, [id number] 17:55:00 Test Item Value Reference Range Interpretation Comments Vancomycin Tr (test code = 13.4 ug/mL 10-20 4092-3) CARLEY (test code = CARLEY) B[place] Worker ID - ADMIN Lab Interpretation (test Normal code = 68037-0) [facility] HospitalVancom[facility] level, [id number] 17:55:00 Test Item Value Reference Range Interpretation Comments Vancomycin Tr (test code = 13.4 ug/mL 10-20 4092-3) CARLEY (test code = CARLEY) B[place] Worker ID - ADMIN Lab Interpretation (test Normal code = 34445-1) [facility] HospitalVANCOMYCIN LEVEL, [id number] 17:55:00 Test Item Value Reference Range Interpretation Comments VANCOMYCIN TROUGH (BEAKER) (test 13.4 ug/mL 10.0-20.0 code = 522) B[place] Worker ID - [id number] 17:39:00 Test Item Value Reference Range Interpretation Comments POTASSIUM (BEAKER) (test code = 3.7 meq/L 3.5-5.1 379) B[place] Worker ID - DBCBC W/PLT COUNT & AUTO [id number] 17:29:00 Test Item Value Reference Range Interpretation [...] H PERCENT (BEAKER) (test code = 2801) [id number] 11:58:00 Test Item Value Reference Range Interpretation Comments POTASSIUM (BEAKER) (test code = 4.0 meq/L 3.5-5.1 379) B[place] Worker ID - ADMINPOCT-GLUCOSE [id number] 11:51:00 Test Item Value Reference Range Interpretation Comments POC-GLUCOSE METER 72 mg/dL 70-110 : TESTED A T [facility] 6720 (BEAKER) (test code = NORM SHULTZ [place], 1538) 75546: [place] Worker/Techni won ID = [id number] for FIDELIA MENJIVAR [id number] 11:47:00 Test Item Value Reference Range Interpretation [...] 0-0 H (BEAKER) (test code = 413) [id number] 10:06:00 Test Item Value Reference Range Interpretation Comments PHOSPHORUS (BEAKER) (test code = 3.8 mg/dL 2.3-4.7 604) [place] Worker ID - ADMINBLOOD GAS, [id number] 09:13:00 Test Item Value Reference Range Interpretation [...] 1819) 40.0 CBC W/PLT COUNT & AUTO [id number] 07:00:00 Test Item Value Reference Range Interpretation [...] CONCENTRATION Adequate (CELLAVISION)(BEAKER) (test code = 3438) [place] Worker ID - Dariela OverholtUser comments: Slide comments:HEMOGLOBIN AND [id number] 06:48:00 Test Item Value Reference Range Interpretation Comments HEMOGLOBIN (BEAKER) (test code = 7.2 GM/DL 13.7-17.5 L 410) HEMATOCRIT (BEAKER) (test code = 23.6 % 40.1-51.0 L 411) B[place] Worker ID - 6000POCT-GLUCOSE [id number] 06:35:00 Test Item Value Reference Range Interpretation Comments POC-GLUCOSE METER 92 mg/dL 70-110 : TESTED A T [facility] 6720 (BEAKER) (test code = NORM SHULTZ [place], 1538) 43604: [place] Worker/Techni won ID = [id number] for MESERET ETT, SEPTEMBER CALCIUM, [id number] 05:04:00 Test Item Value Reference Range Interpretation Comments CALCIUM IONIZED (BEAKER) (test 1.13 mmol/L 1.12-1.27 code = 698) PH, BLOOD (BEAKER) (test code = 7.41 1810) BLOOD GAS, [id number] 05:01:00 Test Item Value Reference Range Interpretation [...] (test code = 1819) 40.0 COMPREHENSIVE METABOLIC [id number] 04:56:00 Test Item Value Reference Range Interpretation [...] S NOT APPLICABLE FOR DIALYSIS PATIEN TS. B[place] Worker ID - [id number] 04:56:00 Test Item Value Reference Range Interpretation Comments MAGNESIUM (BEAKER) (test code = 2.1 mg/dL 1.6-2.6 627) B[place] Worker ID - ADMINHEPATIC FUNCTION [id number] 04:56:00 Test Item Value Reference Range Interpretation [...] code = 995 U/L 6-55 H 347) [place] Worker ID - [id number] 04:28:00 Test Item Value Reference Range Interpretation Comments PARTIAL THROMBOPLASTIN TIME 39.7 seconds 22.5-36.0 H (BEAKER) (test code = 760) PROTHROMBIN [id number] 04:27:00 Test Item Value Reference Range Interpretation Comments PROTIME (TAMARA) 18.5 seconds 11.9-14.2 H (test code = 759) INR (TAMARA) (test 1.57 See_Comment [Automat ed message] code = 370) The system [employer] generated this result transmitted ref erence range: <=5.90. The reference range was not used to int erpret this result as normal/abnormal . RECOMMENDED COUMADIN/WARFARIN INR THERAPY RANGESSTANDARD DOSE: 2.0 - 3.0 Includes: PROPHYLAXIS forvenous thrombosis, systemic embolization; TREATMENT for venous thrombosis and/or pulmonary embolus.HIGH RISK: Target INR is 2.5-3.5 for patients with mechanical heart valves.RAD, CHEST, 1 VIEW, NON [id number] 01:51:00Reason for exam:->chest tubes, s/p cardiac surgeryShould this be performed at the bedside?->Yes [facility] 1975 Sex: [...] Date/Time: 01/19/2021 01:51:42 RAD, ABDOMEN/KUB, 1 VIEW [id number] 01:51:00Reason for exam:->Verify corpak placementShould this be performed at the bedside?->Yes [facility] 1975 Sex: [...] Booker MDRjonathanort Verified Date/Time: 01/19/2021 01:51:42 POCT-GLUCOSE [id number] 01:49:00 Test Item Value Reference Range Interpretation Comments POC-GLUCOSE METER 121 mg/dL 70-110 H : TESTED A T [facility] 6720 (BEAKER) (test code = NORM Tenorio [facility], 1538) 28743: B[place] Worker/Techni won ID = [id number] for DO KUSeptember POCT-GLUCOSE [id number] 00:34:00 Test Item Value Reference Range Interpretation Comments POC-GLUCOSE METER 68 mg/dL 70-110 L : Will Rep eat Test: (BEAKER) (test code = Notifi ed RN/MD: TESTED 1538) AT [facility] [address] [facility], 770 30: B[place] Worker/Techni won ID = [id number] for MESERET DE SOUZASeptember [id number] 20:31:00 Test Item Value Reference Range Interpretation Comments MAGNESIUM (BEAKER) 1.8 mg/dL 1.6-2.6 Specimen moderately (test code = 627) hemolyzed [place] Worker ID - [id number] 20:31:00 Test Item Value Reference Range Interpretation Comments PHOSPHORUS (BEAKER) 3.9 mg/dL 2.3-4.7 Specimen moderately (test code = 604) hemolyzed [place] Worker ID - [id number] 20:31:00 Test Item Value Reference Range Interpretation Comments POTASSIUM (BEAKER) 4.4 meq/L 3.5-5.1 Specimen moderately (test code = 379) hemolyzed [place] Worker ID - ADMINHEMOGLOBIN AND [id number] 20:15:00 Test Item Value Reference Range Interpretation Comments HEMOGLOBIN (BEAKER) (test code = 8.0 GM/DL 13.7-17.5 L 410) HEMATOCRIT (BEAKER) (test code = 25.6 % 40.1-51.0 L 411) Brick [place] Worker ID - 6000PH, [id number] 20:13:00 Test Item Value Reference Range Interpretation Comments PH ARTERIAL (BEAKER) (test code = 383) 7.45 7.35-7.45 POCT-GLUCOSE [id number] 18:00:00 Test Item Value Reference Range Interpretation Comments POC-GLUCOSE METER 74 mg/dL 70-110 : TESTED A T [facility] 6720 (BEAKER) (test code = NORM SHULTZ [place], 1538) 59478: B[place] Worker/Techni won ID = [id number] for Ezra Gregorio [id number] 17:36:00 Test Item Value Reference Range Interpretation Comments POTASSIUM (TAMARA) 4.2 meq/L 3.5-5.1 Specimen slightly (test code = 379) hemolyzed SARS-CoV2/RT-PCR (Asymptomatic ONLY)2021-01-18 14:08:00 Test Item Value Reference Range Interpretation Comments SARS-COV2/RT-PCR Negative Not Detected, (test code = Negative, See 47424-2) external report for linked test SARS-COV-2 [facility] PERFORMING [facility] (test code = 02722-9) CARLEY (test code = Negative result for [...] of the Act. Fact Sheet for Healthcare Providers:https://www.[employer]Pili Pop/sites/default/f carlita/product/documents/F act_Sheet_HC_Providers_L pwi_SANQ-SsN-3.pdf Fact Sheet for Healthcare Patients:https://www.[employer]/sites/default/fi les/product/documents/Fa ct_Sheet_Patients_Lyra_S ARS-CoV-2.pdf Performing Laboratory:[facility] [place] [address] [facility] (Asymptomatic ONLY)2021-01-18 14:08:00 Test Item Value Reference Range Interpretation Comments SARS-COV2/RT-PCR Negative Not Detected, (test code = Negative, See 43989-1) external report for linked test SARS-COV-2 [facility] PERFORM[facility] (test code = 34127-6) CARLEY (test code = Negative result for [...] of the Act. Fact Sheet for Healthcare Providers:https://www.[employer]/sites/default/f carlita/product/documents/F act_Sheet_HC_Providers_L laj_KMAO-DaJ-6.pdf Fact Sheet for Healthcare Patients:https://www.[employer]/sites/default/fi les/product/documents/Fa ct_Sheet_Patients_Lyra_S ARS-CoV-2.pdf Performing Laboratory:[facility]2/RT-PCR (Asymptomatic ONLY)2021-01-18 14:08:00 Test Item Value Reference Range Interpretation Comments SARS-COV2/RT-PCR Negative Not Detected, (test code = Negative, See 58150-4) external report for linked test SARS-COV-2 [facility] PERFORM[facility] (test code = 46288-8) CARLEY (test code = Negative result for [...] of the Act. Fact Sheet for Healthcare Providers:https://www.[employer]/sites/default/f carlita/product/documents/F act_Sheet_HC_Providers_L esx_LMTX-BeZ-9.pdf Fact Sheet for Healthcare Patients:https://www.[employer]/sites/default/fi les/product/documents/Fa ct_Sheet_Patients_Lyra_S ARS-CoV-2.pdf Performing Laboratory:[facility] [facility] [place] [address] [facility] ([facility])2021-01-18 14:08:00 Test Item Value Reference Range Interpretation Comments SARS-COV2/RT-PCR (test Negative Not Detected, Negative, code = 3984788) See external report for linked test SARS-COV-[address] [facility] (test code = 9221558) Negative result for this test determines that [...] 564(g) of the Act.Fact Sheet for Healthcare Providers:https://www.[employer]/sites/default/files/product/documents/Fact_Shee v_LQ_Luxvgeqkk_Rhpa_RHYR-HmO-4.pdfFact Sheet for Healthcare Patients:https://www.[employer]/sites/default/files/product/ documents/Suaj_Lvqbr_Baakgphv_Rzim_BGED-JrV-3.pdfPerforming Laboratory:[facility], [place] [id number] 12:57:00 Test Item Value Reference Range Interpretation Comments POTASSIUM (BEAKER) (test code = 4.0 meq/L 3.6-5.5 379) POCT-GLUCOSE [id number] 12:40:00 Test Item Value Reference Range Interpretation Comments POC-GLUCOSE METER 81 mg/dL 70-110 : TESTED A T [facility] 6720 (BEAKER) (test code = NORM Tenorio [facility], 1538) 55060: Brick [place] Worker/Techni won ID = [id number] for Bent on, Gladys Sputum Culture + Gram [id number] 11:19:00 Test Item Value Reference Range Interpretation Comments Gram Stain Result 1+ gram positive cocci in (test code = 1123) pairs and clusters CARLEY (test code = 4+ Normal respiratory CARLEY) [facility] [id number] 11:19:00 Test Item Value Reference Range Interpretation Comments Gram Stain Result 1+ gram positive cocci in (test code = 1123) pairs and clusters CARLEY (test code = 4+ Normal respiratory CARLEY) [facility] Gram [id number] 11:19:00 Test Item Value Reference Range Interpretation Comments Gram Stain Result 1+ gram positive cocci in (test code = 1123) pairs and clusters CARLEY (test code = 4+ Normal respiratory CARLEY) [facility]AM [id number] 11:19:00 Test Item Value Reference Range Interpretation Comments GRAM STAIN RESULT <1+ WBCs (BEAKER) (test code = 1123) GRAM STAIN RESULT 0-5 epithelial cells (BEAKER) (test code = 963120) GRAM STAIN RESULT <1+ gram negative rods (BEAKER) (test code = 690248) GRAM STAIN RESULT 1+ gram positive cocci (BEAKER) (test code = in pairs and clusters 098358) 4+ Normal respiratory mendy [id number] 10:15:00 Test Item Value Reference Range Interpretation Comments PHOSPHORUS (BEAKER) (test code = 4.7 mg/dL 2.3-4.7 604) [id number] 10:09:00 Test Item Value Reference Range Interpretation Comments POTASSIUM (BEAKER) (test code = 3.8 meq/L 3.5-5.1 379) [id number] 10:09:00 Test Item Value Reference Range Interpretation Comments MAGNESIUM (BEAKER) (test code = 1.9 mg/dL 1.6-2.6 627) RAD, CHEST, 1 VIEW, NON [id number] 08:45:00Reason for exam:->pigtail chest tube placementShould this be performed at the bedside?->Yes [facility] 1975 Sex: [...] MDReport Verified Date/Time: 01/18/2021 08:45:59 Reading Location: [facility] Radiology Reading Room [id number] 07:01:00 Test Item Value Reference Range Interpretation Comments MAGNESIUM (BEAKER) 2.1 mg/dL 1.6-2.6 Specimen slightly (test code = 627) hemolyzed COMPREHENSIVE METABOLIC [id number] 06:55:00 Test Item Value Reference Range Interpretation [...] APPLICABLE FOR DIALYSIS PATIEN TS. LACTIC ACID, [id number] 05:22:00 Test Item Value Reference Range Interpretation Comments LACTATE BLOOD ARTERIAL (2) 1.0 mmol/L 0.5-2.2 (BEAKER) (test code = 2874) HEMOGLOBIN AND [id number] 04:50:00 Test Item Value Reference Range Interpretation Comments HEMOGLOBIN (BEAKER) (test code = 8.4 GM/DL 13.7-17.5 L 410) HEMATOCRIT (BEAKER) (test code = 26.9 % 40.1-51.0 L 411) B[employer] Worker ID - [id number], CHEST, 1 VIEW, NON [id number] 04:47:00Reason for exam:->chest tubes, s/p cardiac surgeryShould this be performed at the bedside?->Yes[facility] : 1975 Sex: [...] Krishnanepting Verified Date/Time: 01/18/2021 04:47:41 BLOOD GAS, [id number] 03:37:00 Test Item Value Reference Range Interpretation [...] (BEAKER) (test code = 1819) 40.0 PROTHROMBIN TIME/[id number] 03:29:00 Test Item Value Reference Range Interpretation Comments PROTIME (BEAKER) 22.0 seconds 11.9-14.2 H (test code = 759) INR (BEAKER) (test 1.95 See_Comment [Automat ed message] code = 370) The system [employer] generated this result transmitted ref erence range: <=5.90. The reference range was not used to int erpret this result as normal/abnormal . RECOMMENDED COUMADIN/WARFARIN INR THERAPY RANGESSTANDARD DOSE: 2.0 - 3.0 Includes: PROPHYLAXIS forvenous thrombosis, systemic embolization; TREATMENT for venous thrombosis and/or pulmonary embolus.HIGH RISK: Target INR is 2.5-3.5 for patients with mechanical heart valves.[id number] 03:29:00 Test Item Value Reference Range Interpretation Comments PARTIAL THROMBOPLASTIN TIME 36.3 seconds 22.5-36.0 H (BEAKER) (test code = 760) CBC W/PLT COUNT & AUTO [id number] 03:23:00 Test Item Value Reference Range Interpretation [...] PERCENT (BEAKER) (test code = 2801) POCT-GLUCOSE [id number] 01:17:00 Test Item Value Reference Range Interpretation Comments POC-GLUCOSE METER 80 mg/dL 70-110 : TESTED A T [facility] 67[address] (BEAKER) (test code = NORM SHULTZ [place], 1538) [id number]: Brick Kiln Worker/Techni won ID = [id number] for MESERET ETSeptember [id number] 22:01:00 Test Item Value Reference Range Interpretation Comments PHOSPHORUS (BEAKER) 5.1 mg/dL 2.3-4.7 H Specimen slightly (test code = 604) hemolyzed [id number] 22:01:00 Test Item Value Reference Range Interpretation Comments MAGNESIUM (BEAKER) 1.9 mg/dL 1.6-2.6 Specimen slightly (test code = 627) hemolyzed [id number] 22:00:00 Test Item Value Reference Range Interpretation Comments POTASSIUM (BEAKER) 4.0 meq/L 3.5-5.1 Specimen slightly (test code = 379) hemolyzed PH, [id number] 20:14:00 Test Item Value Reference Range Interpretation Comments PH ARTERIAL (BEAKER) (test code = 383) 7.49 7.35-7.45 H HEMOGLOBIN AND [id number] 20:04:00 Test Item Value Reference Range Interpretation Comments HEMOGLOBIN (BEAKER) (test code = 8.1 GM/DL 13.7-17.5 L 410) HEMATOCRIT (BEAKER) (test code = 26.0 % 40.1-51.0 L 411) Brick Kiln Worker ID - [id number]-GLUCOSE [id number] 18:31:00 Test Item Value Reference Range Interpretation Comments POC-GLUCOSE METER 81 mg/dL 70-110 : TESTED A T [facility] (TAMARA) (test code = NORM Tenorio [place], 1538) [id number]: Brick Kiln Worker/Techni won ID = [id number] for RONAL BROCK Tissue [id number] 16:48:00 Test Item Value Reference Range Interpretation Comments Case Report (test code Surgical Pathology = 104) Report Case: [id number] Authorizing Provider: Trey Galvez, Collected: 01/11/2021 03:53 PM Ordering Location: [address] Received: 01/12/2021 08:17 AM Pathologist: Fredi Hermosillo MD Specimen: Mitral Valve, Mitral Valve (send for C/S first) DIAGNOSIS (test code = [id number] 3220) FuZzEwMzNcZnRuYmpcdWMx IHtccnRmMVxlcGljOTIwMl kbbcQwYMTmgCXfZ4Emcykx XNqjOQ2bMH9vsZhqqHJbkM CaPREyNhIep2xrg788pZOp a7jgIDPQuxdpqBl5uZrrK6 7hw3J6FlyfK18qkXMtSVxo bGFpblxmczIwIEhFQVJULC BNSVRSQUwgVkFMVkUsIFZB HIZELCDAHD3NIRfveFAgJI DYIwVLEs3JDSWHTKJBQYTJ CQvLIPMXGM5SREADVwAGIK 2HZoxmRJQXJG6NRaHBXSVc LrSUUAFTMYFVLRNVK2YZSE BhciBMRUFGTEVUUyBXSVRI RPZMY8XBLI4WMJQDAAJSGN APVAVEEwlKOLTIGJCPF4LH EMVCG6IAQqZkcTBaaNtgnp EdDCfbd9FxYBwoHDFiEE3k xCymTXDpPL0aRMThI0qilH 9pxup5NiEsRLXsGiP8DZSc suK0Zka1ZTIqIPibg4rfo0 HzGAZiQZm3gInmKvYgPZDz k9ejxgFfJgJpZWTjKIFrUF QciHQmO408b1rqo1guvkVf rGG9XJKiAVE4WLocwyTrdu B5FIfnzDJeTsC9HFbfahJa QPddnaOjocSiWpt5AGEhW6 67UOO4kBagt0bgSDA5CMLz XDEuOgEyMy7sxZPqX808UZ ZpYEUKSSFifEk7ZWVzpuLu ciYdoRHBq562W319v6brLK BjzqBwvUzRsennn5uuH588 XHBhcGVydzEyMjQwXHBhcG IaeHH1OTEkHH9nmwwpASpu LYdmPCGfimT2BTJyzSAzI8 ScXVCyZQ6cyoqmIAR9KAyk UEVgFJH6McJjIESwa9Bmqg l8ZlZsql1hjj61JED2d9Ts fXabXMB4YTA3MsHpDz9vfM IwZXSlRE7pCbTdsVYmKQFp el16lVfhHAjmWTP7ENKrza Die9Hdm4fnOjTpbuHdC0pt K2BiOJTmRTXuDMFwOtNtzm Uzv7Uhl3IstKDysLb9y3sy BXHcSBRnlGvma1zvKFJ0DU JqaNKcK7cchO2xQJVcTC9p bmknd6huWZurJFxiPDGuoL C8hgT7CJZqsKHrE8BkzE4p SVBcFQuiBKAtzxs5NgJqOd 9vdGVyeTcyMFxzYmtwYWdl XHBnbmNvbnRccGduZGVjXH BsYWluXHBsYWluXGYwXGZz MjRccWxcbGFuZzEwMzNcaG ljaFxmMVxkYmNoXGYxXGxv H7rvDiMmEvIhAwb6PQTovP QzDFRjNey6HRBexBTzLRQG tBjjhC9jAATmkYdmuE9qcC A7AIWlekZhjNJPuC0iAWID bV9pBwN1XkWmPwX0VOs1FG FccGFyfX0= COMMENT (test code = g9ckuMFnDYMmvLN4QvSbGF 3359) Pfz7ueo4HgcKTpcQWkLMhs aAAzssZdxy43wGY4nR87UY 2rAXSiEmE1WZNxwfW5Cnq0 EJFwCMWkpWJxB968r5van2 ndseHgzIQ8pUrdYOCgVIXv YWluXGZzMjAgVGhlIGJhY3 YmzcqxMIUzpyZzjY3hFGBu wlX1qJFxaqAsBERpnYdwni ZhsiWrFUDhAD5msrB7VCMl HE3pRSCqzggcThp0HUH7HQ jjyT7eENlloJrgxNvhw1Oh MKhlWM4mMMH7UBmotmWvzn FpE47DKLR5YWtwkosdXcX8 YGSuGERjovIuj51adgUdlF Umd0QfcV1ra1s9GWzsOBLc RNZvf3VaG64xG9lvBHocPQ J9 CPT Code(s) (test code a7jwuNNdXIOwfLZ0KiTzWX = 3357) Phr5zyz2NowLOynGAiGIda dATbtkLbvd27gTC9tN16GW 9yQQCeZaH1TRMetfY6Wcr4 MHAtPLXziBBdE916t9ykb6 gaseAcdWR2gDbbMDLxLCAa QSryCMHhCuAyHHuaTWV9UB p3TcGqGJdeN3khESD6 CLINICAL HISTORY (test u9rznBPiJXQxmJB6LaCuZV code = 3356) Xpx9hdj1CjuNQzdTDsMXwc eONmmwRkxl05yCA8kE11TQ 0fGUKvEhQ7OIKienK7Npa1 SEFqVKHpmECeT514f7wjv8 radxIgjSZ8wLboKZNrVRDr IMrmIUYwEwEtKC3je7Fmvv YlfOzaFJ5jKJ2jdUEfrLN2 NCq3VYWkiBYjiN== SPECIMEN SOURCE (test k6hdyTTcKOQzwGJ8JbGwEY code = 3377) Dvs2sjq5WrwIKszLWzCRpj pFUezmCmoa04jNH7pL30GF 8mTPEiAfB3RLVvgcL2Qyc2 FFFpRVFzpSNsC843t7xiu6 mhryLdvXO2rAhgCNHdGSOk AQncGTWzBqGtVVa9qyMiIX ZhbHZlIFxwYXJ9 GROSS DESCRIPTION (test y2dbvVIhVBAssWLxKrDvDZ code = 3366) YyXYUle5clWVRvePHjHpCo MzNcZnRuYmpcdWMxXGRlZm Eun3jqq467kXPlu1rzIUIW vefshCf3x2lmYYVfNsR1tZ HcCEobQ0pcgwYcjONaZAVc MFi8pL43FARpqB0tlQQvBQ dpokVjRwC0TUoaOFDoSaE0 FTIebPJnFLGxO6uuHJIrIJ eeNZIfLMhkoGDlLOA2mVki f9Z4gHJnnSXxlTtlAtMpZr FdNKQYa8ByECq8qXmtW0Hz DYAlIfI0lDPpWSNcMJgyFF ZtCXPdcuF2uN96RSmwjnK4 zHUpw6Vag52mc968gM1ewC MbOBU1LZNvRYXzoNJnESSo RVN4XBEjrXClU7h0XyVavZ VbI4J9LlFwsZJiG6G5PkAm eDQoJ9M4CcXqsIEeDOKrgY ZaNz1bjZSjgIGbog3qno90 PPP4n4WtvWhbONY2XOB9Kn EhLo2nrQZqYNIvJCCmePYx HEKpCD9yyKSpLGUuzT8vyw xjXHBnYnJkcmhlYWRccGdi uvLdSe2whDfyAKA7ERjcT8 gfgM3zFyO3QJncI4wcuG8b PCa5CMnxdGH4ZEShdV3dDS 7kbvgdn5mpQgNyBZ8imzlx v2faWgDqOZ8zvvl6m6zvGy BdRC0wvigwe4yrDmMmMJmj RLVuhuxnONBrb4IdgaozNR Cts5HhW6TofJqpK82koHxb P22zVYFqeWsmrX8coNdbqB 5cZjBcZnMyNFxwYXJkXHBs YWluXGYxXGZzMjBcbGFuZz EwMzNcaGljaFxmMVxkYmNo RWIgTIlaX2biZaXaBvNdQJ BSZWNlaXZlZCBmcmVzaCBs YWJlbGVkIHdpdGggdGhlIH MojXnhseGjztIkLI1nUVQe ZEYxO0ZfYCFuR02qITFflR 1iZXIgbnVtYmVyIGFuZCAi jFu7rkEpGKUymMOeDtUvud FsFUSjEIZ6WUEhGRP7CSFk VWWtaBLmQ7jiYArbtMDdy5 YgdGFuLXBpbmsgdmFsdnVs NBPrkCbyl2WvBQehvWgoBP A5LQFyMERiC1Txn4WbuFQ8 ilPslWSgm4LauDNoA3siie VlPJA7JV1aoR1jBP4eLQve IHNwZWNpbWVuIGlzIHNlcm aoqIz9KOVjS2Lng86uERT3 sbGxIHKjSLgfNkFhQ7b1BT hkhJxpfdO8aiN0NF8iJXHf ib6gPUV6sGRyeDXnHQSpco B1hYJzLRWszZFgHdkfESNm s05uCR5lAGE4chehToU2uF E7hlLoDrKvN38hLKSqaTPc x3GyeGN0zAHwPODeU9Mpn8 6xQTYnHGXntDYxwUG1GVSs dF3cG8Wwr9F2vJWrLIYoHu 0ogN91tL7kTSCssUDdYKEf X8AtC3efnJKntDzwxl4uNJ uQH6J1CMIkuv6= MICROSCOPIC DESCRIPTION i0tcfTVuEPZteKR1EwWeOJ (test code = 3371) Bsk4feo9JwiFSmxBLeXDec nVQgfgWayr96qOL4tS27UB 7nPVLxExX6HEGxlbC6Whk0 QJLaDFMgyTQmH001a5ied6 esuwRdeSZ3aHrqLLLsMGIu XHieBDJsFkMaTIFjFr2yhR VkXHBhcn0= SPECIAL STUDIES (test o0afsZVkTEMin3onDDNhsV code = 3376) FuZzEwMzNcZnRuYmpcdWMx HZfdqpUuDQzje8KxP4ZtAr AwMFxhbnNpXGRlZmxhbmcx NRJhBQU4krDcQUVxDSdaOW QzQGihTb2loCUflHhlNlTl OOSzw4awgsLAyrnjkRz5n6 ynRTHpWdY3oGYmMFkjF5of eoSjbYZfZ7CtbGQxfJa0o5 bvXhFyOdZ1wHFsVPymV5cf irZygJWmQSMjVEq1jP29IN LgzX1rfCCyPFkqwcKdDgD6 GEvcGSHtCcI7DIYfkHOkMB TzB8ggVVAyYCkhRAGxZRub iCDfODQ1fGxcq5H8zLPzwG VukBnoXoKtBsHkVxCKw2Ep JUu8dQbbW2SeEIVkEiT4uV QgUGFyYWdyYXBoIEZvbnQ7 mTwsjnEpt64uqVEdLPEfLS HvFnUbcGvdKHPwMDRUr3Fe pBbiPLR5aIc7hJmoWzidTO H9Xrb5AO3pwt24jku1tZlh LEBldifhQuB7NLwrCCPimz jpKTc3HFswARNrqUA7LTWc lXVwY0JvYGUnNW7duct3EK R2UWxfGODpYvV2EBAzpQRw GUYbyRajXXfmv631CSC2Bw TcMH4dO0Alm1A3mU2dpDTe MRCokESrClMsWGJsie9fxN GtPQdkn2IwCGB1eiN5iGGl jCZqRMHgSY53Ogbjv5LeGj qeb9UpP56pvTO7HDrea2uy SP9jKnX5qgMhSXnhl1dheB 0sPjM1GLdmWX4aVK9bTTNc qP7bcutlHFJnZgLtbnzgFR CdqYnlgdJkHh1lwZoxVFP7 HZnbK1wycJ7qJiU6TKmyE0 afnR3dLKf4DFkjaND7RMTz qF1oTC0poctjq3hvFUcoFF jfHDGnopC5fmK9JOLdoWAs F5OtsL2iKRMvLN3pkvaue7 euITB9UZngWLGhLTV4KnMx AYFsg9Rkjcu2GpDpt2CtkY TgKKysJ00rx793ZTQuyyMj G2htkZRbvighgRItevvkJI rqnuF4ACWlNUWhHTxbZFGg XGZzMjJcbGFuZzEwMzNcaG ljaFxmMVxkYmNoXGYxXGxv K7zyQpGzI3RuMOPpOfMcDS naFNvhmSVjkBFxwPO8dQ1j LG6nDFCryUPlR4ZpRQUfky DtzTKbYLC5rCVgbDQtMS7o GMfiiOQbr8lrq1QnT0htbE agfGR2CW4dCENvIAAfTEvs f3JceC4fXecpdNDvhvrdIS xmczIyXGxhbmcxMDMzXGhp B6hoEqXnOTVjtYpjRRpnb3 NoXGYxXGNmMlxmczIyXGx0 cmNoXHBhclxwYXJccGxhaW 2cGqBhXuQmZxhbVE4xEGMg L1btoOLyHJKzZORkR5wuNe NgeJ5pqMqwZUdoRmHhMyNg VwDSi181cl9mYQBhyKPqam ODuMMqyD2rKWhmZYjbYExa dCUbLBnst1riEGJbq5z5vZ PwUWAvzuDzr9asDRrtkiAa VXQwfFZsdLCfOTMft72rOZ rokJcunHrnLDPhw2TneYad b7ZfOrScGIjnv6LsI21jxP JvbCBzbGlkZXMgcnVuIGFs a59ju7pzZVEmDvR5qHMrvB I8rDXtvLSst2ZugGrfQRBi m8mhSLYcsd3duphkgLVir2 WvbL0oosstRMahdDXctfMv POAtc8v4yGBlOBJtDFKlNR tppMx6IGZbt787ua7alwD3 nRSvWGD9LBcaYSDdFUQudn UgZXZhbHVhdGVkXHBsYWlu XGYxXGZzMjJcbGFuZzEwMz NcaGljaFxmMVxkYmNoXGYx RPcgR5lwInWqN2GqGTNtEt KrsZUfU8yawJCzTKWrJFji XGYxXGZzMjJcbGFuZzEwMz NcaGljaFxmMVxkYmNoXGYx XNqcB7wwIdWaD1RyDCXnMy IgIFxwbGFpblxmMVxmczIy PPokjvmpPNLnRUgnV8cyXc YyFFUliTprZZckd2HxZQNg ULSlDzrvbvSgUOz9jeRlFU BhclxwbGFpblxmMVxmczIy ZJvbrmziLKFzXDteP5qzCp JqRPPceSraNVzvl8HuRYJz XGNmMlxmczIyIEltbXVub2 ymm4XtP3wbiSoxdZD3YVKo C1nbiYLweAJ5HUY3yI3iWW sawpKeHUVvl4AaOAFaJDQy ZsN4mQ4kTWY5CgHAkBmbNH BsYWluXGYxXGZzMjJcbGFu ZzEwMzNcaGljaFxmMVxkYm AoMKKqPXzjF7tpFwDtY4Mk CIQmAfEqcBuvTNhtGHz3Kv xwbGFpblxmMVxmczIyXGxh zezqDLCdKCymS3fiIvCmVE YaqWuoNKpyj3CzGPFpQPDs MlxmczIyIHMgTWVkaWNhbC FYAP91QROfOAXagUaqnT8w uHENQLZudnM3v1G5JIsqFT NxBFm9OAhygoVlFJTruO6s ETGwKT6gFEy7ajEdVRPcy2 CxTM6qJWBzoJPtFRQ9YGJu i6CyV1Wrj1LbOSFlLPZfew 1xiiDtXoFMgJInYXClce34 OGOiPQ4kT7myHCOsPKCnqg KzfZFlk2MlXXZvmJP7rZBq IE2HNrWNe04oQSLhARMWtg MrAPCdrRwvrUY4hvD4pI1s LiBUaGUgRkRBIGhhcyBkZX Dbky4oqyRuBNZwPJLmh4Ci zDKbfNBgljHfA3Nsh6AoBK Ttmx68IEnujXDnuo07SJ9m R3Fyc3FvoP0hDAylEOVoh5 QwvLVsgDWpMSAvm4HyB2pu rkazSUwljJAuuL1sRBNkSR d9QSOhf0QlFBNys3VjMtVh foJhDJFiARAbAFKozR77GI L1rCddvAybyaLkBY1hFLZb oyWdPYHzKUOgqK7hSQhjbe DfHRNwwlW7b8U0RSvkRACy xtCwIbvyOXP4viKyxqX3sY AaY1gjltsrQWyzQYFii4Ok pQ8apFKZaAJfj0IwuPRkbT REkIUzPD5gkdXzME2vQOC9 ODggKENMSUEtODgpIGFzIH L3SDgzKiqlLNC5zvSjEBRh s4HrJGbsH9roU68osVypzS p3pVBgtYvvbHNpsMQzSWFw ntX5l7G4WSHqn9DozvzjYV BsYWluXGYyXGZzMjJcbGFu ZzEwMzNcaGljaFxmMlxkYm OsGWZjJIjuB6rnNsXfHdKz JhjsMTY6pR== [facility] [id number] 16:48:00 Test Item Value Reference Range Interpretation Comments Case Report (test code Surgical Pathology = 104) Report Case: [id number] Authorizing Provider: Trey Galvez, Collected: 01/11/2021 03:53 PM Ordering Location: [address] Received: 01/12/2021 08:17 AM Pathologist: Fredi Hermosillo MD Specimen: Mitral Valve, Mitral Valve (send for C/S first) DIAGNOSIS (test code = [id number] 3220) FuZzEwMzNcZnRuYmpcdWMx IHtccnRmMVxlcGljOTIwMl zrruDdDHVwtFQgF1Xhlyjt HYdwKS1hTM0daAbwtCPstN EgSDXsZrDts0jlo751xRSo u6foUTNSslpfxWw5oQnvH8 6tu8M6ZpptW94erPLlLFps bGFpblxmczIwIEhFQVJULC BNSVRSQUwgVkFMVkUsIFZB RKHHNNDTDS3YFAhncXAzGZ SDWvXIYr5ZUGCDJZGSTFYC LDyGDVKOWM6KUJSTKdDGOC 7RLzlwQVTZZE3IEcQFNHBl DaCKVCYPYJCBTUNBY0YWBO BhciBMRUFGTEVUUyBXSVRI QNOAJ1QLET6MDMYFOQFFNI TRXLYUYhcWIKDSRBMTV4MQ INLVC2KVAqDblMSdtVlymq OtZQhvr7FdSKhyBRBtWO8d lZqnDAGeNL8tPNFcJ4qwdR 3prpe3WuDyVSXvNvS9ZMPx lfM9Zni5RJHsRSvqe1bwo0 ZwMSXsJBr5zDhbNbHfYFUp p2eaxkOsUmYgHCPzKTRxNJ SflKVfY287c1ran8uqlfSn hEA0TDKuWWE0WEldvpNwil B5UGaniNTbAxL4MFugsdVq UTeuwgZyihWrCuq6XAKiD6 61TXB9wKnuu2vtXPI1XPYl XSIrNtPaWd1sjBVwC944PP LbJXPLIEGiwYx4EFKnetPa kqVzfJWCm095O217q1hxPG LqvbFuwYtNkssog3ieZ011 XHBhcGVydzEyMjQwXHBhcG QqeQC3VJKeFS7aytapLMqw ITchOFXipkP2IUQjcIOpX8 QrCLUvKC6frnqeKOT6ZJfp MEKbUOA2IjHpFISex8Pskb d7PiSyxv8lyk69UUA4p2Jn fCajZHU3FUU5RjGlUe1esA QvYJRzWY5eHoEhaJEzMPQf sh43wLnzOZogHFI7NTWupp Obv0Mcx7ftWoLyxtYxC3vt T7MuWTUdERMoPFUtYzIpoi Vjv9Mpv3GanBXfzQt1r5iw TNIwDTAxbWnkd6vfKAV3CS ZnnTXlZ8omgF6hSNHbHM0y rmnvk3xbYTxlUUshOJOyyD H4vcJ6QCCkbAZvH6ZgtA6d MMQjKQxnBDCqplx6HjVdSt 9vdGVyeTcyMFxzYmtwYWdl XHBnbmNvbnRccGduZGVjXH BsYWluXHBsYWluXGYwXGZz MjRccWxcbGFuZzEwMzNcaG ljaFxmMVxkYmNoXGYxXGxv W5suBtDhGmPcYtv4EPSurM LmPUJhOzr1DCQrpDTsZFRT eRyotS4hPFQisYeceL0vjT P6XRPlicVzvCXWyQ4rRTOQ kV7iAoR2EvMrBaZ1EZg8JJ FccGFyfX0= COMMENT (test code = v6qdqFFpBHNmaOE5HrOeFD 8622) Noa9eco2AheBFatSQgBFnr fHTjjiOtmy93zJA9mQ34NH 2uZDMiJfU6PPNmyrE3Yjo0 YNNvYNIjlURnD384a5woz9 oxflYnfPP2sVowBVXbMTUy YWluXGZzMjAgVGhlIGJhY3 GpurrqNOCmtjZimX1hETCz cxD2kOKovsJoPRRxnHqtsn KjtySiQFGbLM5gnhY8WEGr GV4aHLZfbvtoRfh1FQR5WY zyuF3qHIsccVefqEcpt0Sk WAdcAL8hKMX7ZMufxdGozq EdP34UABP3VYywibejBuK8 UEOtORXudlRnq31yxhNylN Git0EbcU7fb5y9QBewSESz QNCwy4EhL47uK2loCXwzHH J9 CPT Code(s) (test code o3xlsQFkKWTimRZ7EvVvYN = 3357) Dwp6xhd8JasFBnaWRoXZyw lDIovdLkxc64sBS5cX77PZ 3mYOHdKvR2RAQyxhE5Dbg5 JURsUGZkgWNrX960h2cvk4 ealdPesXS5tBhsJJCsPCCp PKzcDVLpPhVmXUjhHOR7HW f7JyPbRMezV3zqKVO8 CLINICAL HISTORY (test r9ibuCXrXIZzdVQ1HuOpPQ code = 3356) Mkz5jhz4BneWBxdYPaNBsi hYJwtvWorl54wWU9yF70EK 5nSXKhTtM5RWKswvH7Tnz9 CDYkAZMpbTJcE062j0ihx0 osjbUrdYB6vQwgPNEnMEDa LUamTRVaOvEiHT9vq7Qtsg PrlQltJA4uIZ4fxEIxnYR9 EKt2FSRngOLslL== SPECIMEN SOURCE (test h8xcaKEjVKAqtYY7CeCcRS code = 3377) Ejm3igp9GnuMWfrRYyXVoc hFOeaeEwzb33fEY0uL68TX 3eJIErEsS8TFGwepD2Rsd3 DWLeROYbaAOdC914d0ljg4 mvnmFofNP8fHqjPFSiTYNi SXtbREGiUwVoIYf9klEuON ZhbHZlIFxwYXJ9 GROSS DESCRIPTION (test o7bkgDSwTHErfCLqGxBuZE code = 3366) XpQZFdt2ucTTPcsXCcZnFg MzNcZnRuYmpcdWMxXGRlZm Ikc2dpp662bJBtp2epWWHM pelpjYp2k7zcNKIcSiH6cR WcNLpfS5vwcrQlsCJyTDYd QXz1hZ64JSAjxL1xeYZaAA ltotBrXpY8AZriJWVgXaJ2 UTXgfFZhJHFyY0zzMOYiJZ zoKYCiGWtdrPVsHTK8fAll d4H1bKQwlKBjmCyeSkMjQz OrMRMPj0OgKYo3yNcgS4Sn YGOgErY4zWVwSZTvOVpiRS VvDALoahS9xU72OEemnsK0 sIByh0Shz47ig561vE2eiX MePUB2UBAdLUYrtJXqMAVe WKS2TMFxsVNcQ3a3TcMrxT AxI9V1AxTlpJNeP7A6EaKk lQKtU6Q5GmQygLCyYCHdeC YqBn8noEDqpKAozt4blj68 EEA3z7EtsEsvRSW6ZBP5Rx YxEp7saUYmICOqAGClzQAs FTZuNI1axXMcGPMjzP3fss xjXHBnYnJkcmhlYWRccGdi txGpCo2ipFzoBCT7JHxhX8 sjkO7xRlZ6HApgU6jdhM7y ICm7LAumgOF5XVLisC7yGI 3trrign6sjDvXfJC4ockny s0xgKeUvPE3yziu3e2imWn MjBL8yrtxeb1brMnJrKIol KOVbguygULLth1NphmnfLR Zkr7PpL0VxdRyzQ15isDhr O77aCNQxiZqtgT6pcZdlhX 5cZjBcZnMyNFxwYXJkXHBs YWluXGYxXGZzMjBcbGFuZz EwMzNcaGljaFxmMVxkYmNo NJWjOAohP2oaNxErNlOoPM BSZWNlaXZlZCBmcmVzaCBs YWJlbGVkIHdpdGggdGhlIH EvjOgxviYufzDqKL1jFBXl MTOrT2FzSMWcQ23hLJKmtH 1iZXIgbnVtYmVyIGFuZCAi fBo5bjQkQRLkhLPfEvBkje ZmZWKuPGD3JGMtSVN4TDCn YKNvgGXtM1pqSWxlpNQrq9 YgdGFuLXBpbmsgdmFsdnVs OVLraJrkw7NrMUaxcGlcMO C4SOGoOMRfA5Lhp8XlpCC4 jaWfwVOov9NjgOFuL0vgmi QsQNK5DH4cyB1nDS9xMJsb IHNwZWNpbWVuIGlzIHNlcm sgqEy4TQLdS2Imq11wBXP5 awRpGFRvYMbuRdDpO1d3JD acsSzogqS2zaF6ZH6uQCTv so3fMWJ0uCJjmJAvIGOciq A7cPKnIXMlrLIcGojkBGPw t79uGE2eQLY0ohceRxA4uZ S2nfDuPqYeI70eFJNbfHIy m0AeyZP9aYLbVHCjX4Fry4 2tMFRmVDHmcKNjhYA9DYZo eM0cS8Ehx8J4bPXfDICuUp 2prR85lD4mJHMkyZPxDIEc R1PtH6yczLEejNfsvb2lLM mHJ8M8ZGOrdf3= MICROSCOPIC DESCRIPTION t8rygVPbNLYmoAD3HpAyTG (test code = 3371) Kjv7ixe1HudMBkoACcIRgf yPSzyePymb96fXC0oQ11GB 1cJIZdXvK3ZNZuhfY8Vrb4 KMTrTSHsyLYfQ063i5gwp6 dghnYcwLA1xZpvQIAzTKTf ZQlpUXCcGuXlKTVdBk6znJ VkXHBhcn0= SPECIAL STUDIES (test q4oolLViPTGjb0gsBIZmuQ code = 3376) FuZzEwMzNcZnRuYmpcdWMx XVadehFyFCqlo0IzS7HpJu AwMFxhbnNpXGRlZmxhbmcx AOZgOYP7vaZgBHFvCTlaHZ JqUDwjKp9brIOvoPwrUsQe ZAFca3kmpcVDnkjfsHy2s6 vsSTAiKkV9dODzXCpeB6rm paXzkWWhU7LtpRWtyEu9n0 etCfYwUtZ3lNNpVKkkA2uk nxOvoOLkOCMhRYu0yP47AY BorZ8ryZJkEMihcqPwKgD3 EEcpTWVsLkI0UZFhaTQhOA YiG3acIPClIBluLDGcLOur jDHmANQ4eOfar0F9zSXziH NzuWoeBoMkDaAyOmTJa8Oa BRw0yNqvP7ErFMAnQnZ7pU QgUGFyYWdyYXBoIEZvbnQ7 cPahjaAna58qdEHhSWFsDN ZrZoRrmDfoEVHnEXOVi4Fd hMvlLKM4hHk8gXudVjteVF L6Agn0PW8viw85gqf6kWum DOBhemngOnD2LCfcBVSdhp ccXKw7FXvvOXKbfTC5BTNi nHAnI0IeILOzYK5hguc7PW F0NEtbNIAoOvX3QCUoaIJd OQPodIgzCRrui135GVB2Jf SiBY9mB6Aup7C4fO8uxCFt CQEopCYbDgSkIBMyfd7orB UuQFcke7JfVHQ2qwJ5gWQc vDBiPJIiQK59Oqmxg2NrFd aqv5KoZ16rbYD7SZmxb2fe EN0yZpD7vnHfFDgep7metE 0pVbW3JNffFO8zSZ6pUQOg dH7lxowrQMAgYlCxqyeoWG NxmJxbzoQoWf6wgOdeCQL0 JMqmZ6lcmC6xQxO7UZcnO4 szsW1nGQl4JDgfiLE5QPIe kE4iFS7ocyajv5fmBGrzXV lnPFShhnD5uhW7TDAnyLNm X3CxrO1eMZFwIV5cvzdcr5 cxIXX0KEgpAHAtICI8UkLk VROao5Gpjyu7WvVmm1PeyW UuZIfcA22ai319ERXfgwRk X3rkhXAidtjzuUPylkkmRR qnibW4OIBcBFQtEJkzDRVj XGZzMjJcbGFuZzEwMzNcaG ljaFxmMVxkYmNoXGYxXGxv U3soKeLfB1HqPITcUpJhNX znVGtzpSYqbLYnaQL9dF8z UL4qFLNfoJMsV1UrWTMbke NhpOTwJGV5xYGbvMDcKD1v ZTugxLRpn3aly1EkN2ajoN tnxMP4TR8yUQFtKBLuUYba h8OapI3gTgxmiMNomshmMQ xmczIyXGxhbmcxMDMzXGhp M8llTpSmKABuaFgpSMllw2 NoXGYxXGNmMlxmczIyXGx0 cmNoXHBhclxwYXJccGxhaW 4kNwSmSwKuAcdvUE6aUVNi K1zuqWNjTAJaKTHkG7goUd YlmO3qcJutLIzeKbDmXmYh CsHIy801xz2xNMMoeRVuex CDnNBsuP7qOUumSItuZEbz jLUsDXvxt3eyATFpo8m0sU JpVHNilpCbs7egAZksdjXz IGGrlPPzfJGhXHRym22xUA ryqXlraXycDLMco1EicUhq d6FzTnCiXSkbv1PqA74pzQ JvbCBzbGlkZXMgcnVuIGFs n28zn6vqWQUcCjS2mMSeeH A3gGPhlKKhu6RjaDhzZVJi t1ofTTLwql7qwmhfvUAtm6 ManN4qbtjxEWxjlKCruoHd BYGro6n0hVZsJSTzGAWjEG ahhBa5HJDsr481qg9fpjM8 nKTkLLH5XIzgTKUsJECior UgZXZhbHVhdGVkXHBsYWlu XGYxXGZzMjJcbGFuZzEwMz NcaGljaFxmMVxkYmNoXGYx KXpuP5fdPlGoN0RfYGOhTb OkfFBlX6pguYHbBTSaKNbs XGYxXGZzMjJcbGFuZzEwMz NcaGljaFxmMVxkYmNoXGYx BJxyN2otFzUaV5QuJGHaWx IgIFxwbGFpblxmMVxmczIy TDdttqzaNXOmQThkK5tzQu JxKLUafBokOZmgl5IzQZXg CEStSlexnjXkJBt1yfEfPO BhclxwbGFpblxmMVxmczIy IIrwjrbxSUBrUFioH1avCx TsGBIkdLvhPNotm0FaIGZz XGNmMlxmczIyIEltbXVub2 yie3EzB4cnxLkbjCN2EWQh F5krdOImkHB6DEZ7kR4vBC nufaSbKMFco5UwKEFfFYWb HfI9oH3qNTF9FhIVjBxyWD BsYWluXGYxXGZzMjJcbGFu ZzEwMzNcaGljaFxmMVxkYm NkHMHcOElkP3vfMbSbY6Aw NAIiKvHoyQauEAxtJQt5Kd xwbGFpblxmMVxmczIyXGxh rsxmWCZfDIfeP3ywPxNoCJ WnjAdiMAdvh5TnTDUnVROq MlxmczIyIHMgTWVkaWNhbC BYPV69WQPlBAOsrLnprO9q nIZBYQIlokT5y8M8TYuhSO FvJBk1RDvqqtTjYDUmdY4f OBAvIB5fAHl0eoSkUBFju2 VaZW7nENKnwBOrGJB7ZOGw t2PzI0Mmd8JgHQAnVTIwtn 1slpSpPbEZwZAxSMFdmq85 DOOkBZ6xT7kfFKGrVFFuqt WbxZPxt5UdVYKsrDU4rIYf GU6PXwMUg64rURNzTZJSuv YpDFHejGftwZY0fqB5pJ1o LiBUaGUgRkRBIGhhcyBkZX Feaj1anwFiTVZsLMQye4Kp aMZrhTLouiUyA5Ddm6MoJR Okaf53EPypfXAbrx86XO1c L7Tet6JwqG2pXWfdEMJde5 WgcLOsnTJiTIEtu6UtZ1lp sxfbMNlveMTbyE3rNTWiAZ j3NXMvn2KbUFBle4JhXoGc eoXdEVTmWXSlNOOxrL33WB Q4aItheAlddeAwGZ9mCNQf pyKuZERrUXJsiE2cFXhdsg IjOWWjsjN2l4Y3KUahORUh ocRfIlnvCHQ1lmAhuiH1dR BxB4lsivedPDdcREJbx4Qg qX9alMRJxMBaz3YnoCLsrH MUbQPoBD5hivQnOZ5oETL8 ODggKENMSUEtODgpIGFzIH L1HTsbHyoqBBO0qtItRDDl l3BnPTgtL0byC62qsBsisG x4hTAvmJnqqNJxxBUwADFw vfN7d6S7YITiu4ZyooloUU BsYWluXGYyXGZzMjJcbGFu ZzEwMzNcaGljaFxmMlxkYm HpGAXlJOfkD3pcThVeYhAa MaumRWM9wX== [facility] [id number] 16:48:00 Test Item Value Reference Range Interpretation Comments Case Report (test code Surgical Pathology = 104) Report Case: [id number] Authorizing Provider: Trey Galvez, Collected: 01/11/2021 03:53 PM MD Ordering Location: [address] Received: 01/12/2021 08:17 AM Pathologist: Fredi Hermosillo MD Specimen: Mitral Valve, Mitral Valve (send for C/S first) DIAGNOSIS (test code = e7njlARbWJLnm8cqCPIohR 3220) FuZzEwMzNcZnRuYmpcdWMx IHtccnRmMVxlcGljOTIwMl noyvYuEHOhdBNwG8Zuqzxc XYruWZ2nPO4aoNigfLQnmM PqOHVwPkGsy2fyo347bVMl z8mmYDJDqesjsRu0dOsdU0 5zk1R0NbfnS55nuYGcNWwj bGFpblxmczIwIEhFQVJULC BNSVRSQUwgVkFMVkUsIFZB LNOFKFAEKX3CPBvvgNPzOE KFGwSNBk2NAUDJVIOUMJJU HSvUGKMCLZ3YVBNOTfISEK 7EVdcmUBBBBT6PMvPQXAXq YlUZGRQQDTIJBXYRC7MNOK BhciBMRUFGTEVUUyBXSVRI CQIUS3SYYA9AWJXIITUFZS OYPJTVBcnPISDQEONFQ4ON CHVRX8XJUhXbxZSoiKnwgu CdNGrmn2ZgHVajCAWwZR2m vIviHXEmPP5rUUOyX8ojcV 9ijqn4VpZpEZTuZpH7UUGh dlG6Wvj4AELpSWllg5ezl8 SwFQFjUUl7eEjpPfYkBYZg i6nldtHzMmPkUBTsZWKpDZ KpjFYyX301a5bym5rpgvPq pEO9RZTgLBR6BFjaljKppy Y2OQbzuJDrOkN0RAkssjYp WUtfchAvcoWfOln7MUSiW1 03GPZ6wGiet2gtLCA6FMRi QQRxBrCrFw9lmOXsN969DT XkVIOISABhjMc5WIJtoeWm ubOrvQGIx384Y060l8juAR FtsyJwhQfRfxevs8vgL615 XHBhcGVydzEyMjQwXHBhcG RlsDZ5DJPkKF6zsabrORfv FTvpGHWoemF2QEVlnXMkR6 OjPWMwLD7aprdpPVY1DMoa WUDmRBF4WbYsDARqr2Pfri r4KgAdtp5kai90GMO9f2Pv uMozSOG5MPN7ArBnKa5saA OtHNQxZE1kYbXzyEJgYCCv ug16vVupGSenCYE7VAHgpw Ytb9Yfv5ujQaMjflUvG4jb S9XpEMRfHTHdMUWmWyLtzu Sgq1Pct0ClsSYisGl4y1vz ZRDaYCGwhFrta6pqXLU7EQ FhzWUmM0mloT4tGZHlVE8b tgxjx5gtKDjaABpcLUJezQ M9mgB7QIIkpJYtQ2TzwI3c YEBrUZkdRPUdnji7IhZmYa 9vdGVyeTcyMFxzYmtwYWdl XHBnbmNvbnRccGduZGVjXH BsYWluXHBsYWluXGYwXGZz MjRccWxcbGFuZzEwMzNcaG ljaFxmMVxkYmNoXGYxXGxv Z6csDyGfLhEkRxo6UATxaL DdLWClEmb1VSZbeULiXEXD cBylpH0mOGGrlKuzxH6kjW H1IJDuteXfaAXLyZ6iXKEI aQ3wNvL4KdYgWvB9NDp6QS FccGFyfX0= COMMENT (test code = k2emvHMqHOKsiFQ0VwJsZB 2479) Zsh3qmz9EkmFEmgQEiLIiy qIYtmnMcfc17wUJ2qN52HG 6tCOYgVoZ7OEYgaaH4Eaf3 UHHmJRXgiNHaR321j0vvv7 bbnuOwwAZ1zWrfNSOeJMAg YWluXGZzMjAgVGhlIGJhY3 FbyntnOIRjaaVylK4vUXSz fmH6uDOkjoPaFEAvaSdisw ZgkiFcEKEqRP5ffeM7PATu US8gRARehymzQrv2AQA8VZ eabI1zBZhqrSqsaCgow9Dr IRnsJC3bMQL4QEavfrDgrd BmJ93RYOL7REerfnhvOxV1 VUJbUXBmzkCwn62ysfMeqI Nof4EuiA9yy1l3VBvrYBLn FBCeh4SpU60tD0elVKuiPF J9 CPT Code(s) (test code h2xatVQgKINacPF6HfBlDP = 3357) Ytw2bid2CozSHzhYUeQScx fLJplvDrvb01zIQ6lU23ZT 9uKGDsXbD3INGtzyW6Oac3 LTRgEJHybFTqK281n5jjf9 yycqVhiYH4bCnlOQKuWPSi KFysHPOeRtSzAQasUBY2QP p2YnMlJVnoX4yqJIM9 CLINICAL HISTORY (test b3vivSElMWKymSF3IgYeIA code = 3356) Xax5hqt0JrxKSsqIYyCPyd pGTntvIaui37vHD7lO82TF 1wBPIsTvJ9SWRulnO0Ujs2 MQKiVXFjfUNpZ135y9ahv2 azemGreLC9mFmrBBBmMMCh YPioMTNwEsMyAH4hp9Kjvx XpcSnnQR7lDV0xwJGolVF4 RUc4UWGilUDubL== SPECIMEN SOURCE (test u8jpfYLqNMBlfMQ5LnVnNL code = 3377) Orn6jgq9QetAZmnTChJOsx bFQdhyZpeh62pEU4aN38HX 8zBWPvKpM9IGExtfH5Epn0 LSNyROHlpWEvE954v5mzj0 mvvuZzqYX4dGymEWWuXYCu HFedMZJpOgKgHJt6ahGiKE ZhbHZlIFxwYXJ9 GROSS DESCRIPTION (test y5xxgJBtWWNmsZJjAlImLQ code = 3366) EoDYQuk5veUHEouOVoOgLg MzNcZnRuYmpcdWMxXGRlZm Hul8suz886fMPqx9xhNQGH cgbxnMf2w1rhQJNeCsZ7kO YgJCgeT3fjiuRkeTPjFXRr ODe9eY77CKFnnR1dxKJsPG kdowAfPhG4TZxpRVIcEcB3 AIBtcWNwXRHkP9ajRYOrJZ zlPVWaVGaqkLUxCSZ9dWvr p2Q4nPOwiXAofMsyClOpMx DzFIMRj8JiNTb0nLalG2Yn AIMdFsC2cXEyCXUxGBiaJR IbGFJaqbE4kY26VBxaqtK4 oEMmr7Fht38xp233cU2hwX QpYDJ1IHElERLjhBMuPGMj WFQ9KYPbjGOpH8h7XqGdkA DqB5M3CuMbxBLyB8D2GgQg bTYoW2U2IgGorHGwOMDewZ FiJr2eyAAdhLHnfp8bse90 KYQ6g4CmyLprBWP3IXI4Vz FoAk7eoFZpLQSyEHSykXZy MSZnHG7uxTCiLWSegC3xym xjXHBnYnJkcmhlYWRccGdi bfViCb5wvXsaHOK9MXrsO9 oseU2yTvU7LJjlI3glkO1m VRy0BDnqfXW9IZPupV2qEF 8jaedcv1haViFuVU5aawie g0grDiBnYP1jhim6l4sfLh YkDI2bdjpaf0xsFzJeZFqb YJThuhybMMRxm2ToribcZP Cfd8WaN4TmwYjfL91yiXhc P51dHLXjeZrzoC5ofAtkeU 5cZjBcZnMyNFxwYXJkXHBs YWluXGYxXGZzMjBcbGFuZz EwMzNcaGljaFxmMVxkYmNo GOLqYLkaH3qoBdKkRmPfAH BSZWNlaXZlZCBmcmVzaCBs YWJlbGVkIHdpdGggdGhlIH RgrOqlhsMwnsQlMA3kQBLk WLOqP9YjGSHqP79qLRNarL 1iZXIgbnVtYmVyIGFuZCAi sCt6pjAwTWQejWBeQyQgpx AwGHIiCQN2UFJpFNF8FZFd GYNymRYqG7ekMDkneDYrs0 YgdGFuLXBpbmsgdmFsdnVs CLNruPzqs6XwGBxzmUhoHG Q1UNKxGHXiR4Bdp4ReiHP5 laYlsLBaw4WjtTBnC8voap EvFLU9RR2qoG9lOX2dTHtt IHNwZWNpbWVuIGlzIHNlcm hguWz1GCWaX4Lgp03wEVH8 hfMlMVVvVCxqIyRwX5s5JU zdhNroutX6uxG9RI2dOCFk lp3rTZX8vENlzJYwFWCfem F0iAWzMMLolHKlJvhzGSRm b97rSU7kLBO3pphyLsT8tC Q8tkAlNbOcK56rLOOmvJTz a1CgkTP7qFYdMPJnP3Myv8 0kFUNjCBZmuUUhjCT4TUXi aH5xQ8Xua2A9pXUuOXQzOz 0raB07nD8mOOFhjDArIJPw F3KnB8ucsNKvfRhgci4pTH lVV1H3YSYlhx6= MICROSCOPIC DESCRIPTION w3gtjEYiXEIqyEH5IiUeZP (test code = 3371) Byu3zic5SmuIHmwZYnYBjt gYHyxhRzfc35gZD5hA93YL 1kQWHfQqI9PLVtmpV6Wqb7 JNJqLXBklPFtG566k1sap1 vffnGkaCY9cPjoQFDrFGNl QJxfDNKzUnHcIVAtPr5zcZ VkXHBhcn0= SPECIAL STUDIES (test u5uzsDCsOLGkx2pbRSCuoP code = 3376) FuZzEwMzNcZnRuYmpcdWMx JOsdnnSeRMzpz3ZpZ3PiNb AwMFxhbnNpXGRlZmxhbmcx VFIvUHB0pjTlFIDdTIubXM KwREglJi5yxCRpsCclVeSc XRBvg5jrnvSExhsroBp9q5 qgNAAmRdW0bGEgROyvE6ox pjMrgQOqJ4UlzBXuyRb3s5 csWuNmDiG7xYJpZLxiS4yv wnLcwCUuRMTvKFn4zZ82MY OgkO6huKVcQEkthaYqGqW2 SVgaGBPkQpN7NUYfaAQwZL WnB8cvUGLjCNecNJSaFBnv zLItZQN3pDczc5Z7bMOrdF ByuEmpIhWmSsXxCoUZw6Mh WOq1lCipO5RdLDFaAzI8zM QgUGFyYWdyYXBoIEZvbnQ7 cKowdbGus05ajFEhYWNbVQ ZxHgKmnVuoTGXcANMNg7Xc oCjdPRZ3fZk6tZhpVunwZN U9Iww3CO6ybl43tiq9dIcc XTOkcnfwHwE2FUjvJCPcmz egTFj3BHubPFQjaVE7FRMc hIHoB2JhVXZsBA3vqta4OB M4TOnzPZRpVsH3DGJsdDOb YHRbuFqpTNcpu329WOR1Wu GeQB3rW5Yxp7V9yV1ikHMr QPIejEPoBrNmEBQnxf4qgN WsZAxyw8RcONM0npI9kVXn kAFmFXXrSL89Ivegt2DjSe rok4FmM80sbSJ9FWsnm7oh MD3iVsQ9aqNfBKfcx0vxcE 1nFwV2MTsaIH6pEM0cUNIr sS5beuvvYKXcTfLomdwrNG SawRclxoVyWa4afUwrUZH4 PNtxE5hkhA7nAkC0LOjdW7 sjrD6uVLa4WYogrEM8GDQr hZ9rBO5msnvnm9akYIljWG ydZJWaxtG0roI4RJKbwOUr C3AraT6hRXZmVA1mdjwzm8 avMKW8QSbcPBLjDAK8JvPi TDXfo7Ucbvq2VfDjx8CmuD LaBAiaW91yi003ADDprcAs U5dkvGRzkqsmbGImguygEB bsykP5LQIkTWXrYRjjUILh XGZzMjJcbGFuZzEwMzNcaG ljaFxmMVxkYmNoXGYxXGxv B9spHeHtJ4OgZENpGiNhBD cfRPhaoQWjnMAmbVC8wB7q TN2bHYFezZLkV7CaCMBctq WnkXQdNMP2wVKlbZQnCO3j GDenxRDuv7eqb3IpA9zdvU bomYJ8LW5bDZLvCETaHFyw r8BkpU4dJvmieZYkudssNK xmczIyXGxhbmcxMDMzXGhp M6pbGhDkDPRkgOhxUZwhw6 NoXGYxXGNmMlxmczIyXGx0 cmNoXHBhclxwYXJccGxhaW 6rLiFbCjOuEbsfBC5aYVGc O7dflUIqSQOiPCCiB5lkWa GojR7sxQykJCckMxHgEwCz HiDYd263xn7wINPadPAccs LKsGSapE3fLNmmERzhOMpg kNOsWLzjk8vsOGImn3j6yC ZpVZBtjrXfl9xfJHisxmZx NHAvvMMlaLApIYIfm39jWE lcoBxdbQxmLTFit6PgqOhs f9SvEoSgCDyui0GjI27hiA JvbCBzbGlkZXMgcnVuIGFs g41cq0wcBVZeMwZ4wOIyjY P6gZUfzMNoc1VzsBrxXTTk q9qaXNVxig9gmhywdRGsr4 JxnX2ohpyfDUtooMDeleRd EVKan9v6sSQlOMJgFQYgPO imeBf7CMLfr604wg1sigZ9 bVKvJWU0YIlgDBLhDUVafb UgZXZhbHVhdGVkXHBsYWlu XGYxXGZzMjJcbGFuZzEwMz NcaGljaFxmMVxkYmNoXGYx JKbwM1kaHeYqR6EbRRDcAw YkhDVvQ4cjiBWyVTBjIGny XGYxXGZzMjJcbGFuZzEwMz NcaGljaFxmMVxkYmNoXGYx ZClzH5goWzIxM2JeWECbEd IgIFxwbGFpblxmMVxmczIy NIuazeqgIFRhQEszT1yuXy XdSPXhbHvaSVanu8UfACQn YEReLjxcgxIfJDg3tlRjOA BhclxwbGFpblxmMVxmczIy QGhqzmcyJTQpDSxdX1qaAb HiRRJbqBsmVGkth8VnVRAo XGNmMlxmczIyIEltbXVub2 iyy0SvW5ywdAsguND7DHOs D1aiaVQkjPD7FUC4nM1yZW idllJlVGNjm2ZsACCiMGYl YwR4kJ7lZIY3MkNIaPpbDQ BsYWluXGYxXGZzMjJcbGFu ZzEwMzNcaGljaFxmMVxkYm OoSCInQTjzD1fvHvZoX6Oz IBTeLwRgqKczPMytVOr9Nb xwbGFpblxmMVxmczIyXGxh gnbhECRjMDfnA4lsYfIgKA CmtSsmSOekw6PcHDTjMERx MlxmczIyIHMgTWVkaWNhbC KZKN00ZXZxTCVofDcgwF5b gBBYCJDznrJ8z2G9HWicVC GjMFp5SEtievVmKIWtjP5p IPKeWW1aASa4clIhIOTur6 PkLV6rQOKatQThRCX6QBUy t8HuF0Jeh6BhLJZbKPTdim 2yerMgPjFZrKBaKARqae56 QHWiYS7lS5zwPWYpMFFheb DdeOKgg3JeQOLxiMQ7uPNo HS6DOgGNz45yLTMsUBODjm GlGWTxnXghlNO5olQ5sB5r LiBUaGUgRkRBIGhhcyBkZX Klah4eirVnSYEdZPSxs1Ys vEOqgZCbotDiH9Hih5BbNP Huew35FHtcrXBrxn31OP9s O0Puf0HjkB9xOSajNQJxu3 FzaEGgsKZeINOyg3TzZ3ry cgkbXBgasVIqaH4uFYOuWV w2OHEic4QwWUXoz3OmJpQg tfNbGEIsVBLxFWUblK80LF H8wBjtfSufnrVlFE5zMFAe qkGdVEJfYFMjsA0pPXdoyj KhCILaauW0b9N3CGfzTRVp lsEqPecsIDM4nkFrssQ3mJ WhK7ixsfyuYIguWDHmp2Fn jK6dcFMJySVqz6QdfOIdsJ JFvMBtLW7nneUoOC1vXAW8 ODggKENMSUEtODgpIGFzIH T2DMbaBvmeWMZ6iqCfVSAx b8TqTHfjX7reN99nrMwguH t0rEDbwPzhyZVzwMRaGBQw idQ0h8A7QOVvn8WhgqlkJL BsYWluXGYyXGZzMjJcbGFu ZzEwMzNcaGljaFxmMlxkYm PbPSTbAXrbC0nlKrCiPgKi SqftGEV5bB== [facility] CenterT[facility] [id number] 16:48:00Surgical Pathology Report Case: [id number] Authorizing Provider: Trey Galvez, Collected: 01/11/2021 03:53 PM [facility]ing[facility] [place] [facility] Received: 01/12/2021 08:17 AM Pathologist: Fredi Hermosillo MD Specimen: Mitral Valve, Mitral Valve (send for C/S first) HEART, MITRAL VALVE, VALVULECTOMY:FIBRINOPURULENT VEGETATION CONTAINING DEGENERATED BACTERIAL COCCILEAFLETS WITH FOCALMODERATE CALCIFIC ATHEROSCLEROSIS Signing Pathologist Direct Phone Line: [phone] signed by Fredi Hermosillo MD on 01/17/2021 at 4:48 PMThe bacteria contained in the vegetation are degenerated and variably staining with tissue grams stains and GMS stains, but the predominant morphology is that of cocci. 91418; 10717 x 3Endocarditis of mitral valve Mitral valve Received fresh labeled with the patient's name, medical record number number and "mitral valve" is a 4.4 x 1.9 x 0.8 cm aggregate of everett-pink valvular tissue with attached grossly unremarkable chordae tendinea. The specimen is serially sectioned to reveal bright-yellow to everett, firm, cut surfaces with calcifications measuring up to 0.4 cm. [employer] sections are submitted in cassette A1 following brief decalcifica tion. MJP/ewPerformedThe interpretation of this case included the use of immunohistochemistry or special stains.Control Slides Examined: In-house known positive controls were evaluated along with the test tissue. These control slides run alongside of the patients sample show appropriate staining. Internal positive and negative controls when available are evaluated Immunohistochemistry technical testing was performed at [facility], Pathology Laboratory where it was developed [...] qualified to perform high complexity clinical laboratory testing.[id number] 15:29:00 Test Item Value Reference Range Interpretation Comments FIBRINOGEN LEVEL (BEAKER) (test 273 mg/dl 225-434 code = 658) [id number] 15:29:00 Test Item Value Reference Range Interpretation Comments PARTIAL THROMBOPLASTIN TIME 41.3 seconds 22.5-36.0 H (BEAKER) (test code = 760) PROTHROMBIN [id number] 15:28:00 Test Item Value Reference Range Interpretation Comments PROTIME (BEAKER) 25.4 seconds 11.9-14.2 H (test code = 759) INR (BEAKER) (test 2.34 See_Comment [Automat ed message] code = 370) The system [employer] generated this result transmitted ref erence range: <=5.90. The reference range was not used to int erpret this result as normal/abnormal . RECOMMENDED COUMADIN/WARFARIN INR THERAPY RANGESSTANDARD DOSE: 2.0 - 3.0 Includes: PROPHYLAXIS forvenous thrombosis, systemic embolization; TREATMENT for venous thrombosis and/or pulmonary embolus.HIGH RISK: Target INR is 2.5-3.5 for patients with mechanical heart valves.PLATELET [id number] 15:21:00 Test Item Value Reference Range Interpretation Comments PLATELET COUNT (BEAKER) (test 224 K/CU MM 150-450 code = 756) Brick [employer] Worker ID - [id number] AND [id number] 14:15:00 Test Item Value Reference Range Interpretation Comments HEMOGLOBIN (BEAKER) (test code = 7.2 GM/DL 13.7-17.5 L 410) HEMATOCRIT (BEAKER) (test code = 22.4 % 40.1-51.0 L 411) B[employer] Worker ID - [id number] 13:21:00 Test Item Value Reference Range Interpretation Comments POTASSIUM (BEAKER) 4.0 meq/L 3.5-5.1 Specimen slightly (test code = 379) hemolyzed POCT-GLUCOSE [id number] 12:43:00 Test Item Value Reference Range Interpretation Comments POC-GLUCOSE METER 84 mg/dL 70-110 : TESTED Elias Dominguez [facility] 6720 (BEAKER) (test code = NORM SHULTZ [place], 1538) [address]: B[employer] Worker/Techni won ID = [id number] for RONAL BROCK RAD, ABDOMEN/KUB, 1 VIEW [id number] 12:27:00Reason for exam:->DHT placementShould this be performed at the bedside?->Yes [facility] 1975 Sex: MFINAL [...] Robert MDReportVerified Date/Time: 01/17/2021 12:27:08 Reading Location: [facility] Radiology Reading Room [id number] 11:30:00 Test Item Value Reference Range Interpretation Comments MAGNESIUM (BEAKER) 2.0 mg/dL 1.6-2.6 Specimen slightly (test code = 627) hemolyzed [id number] 11:25:00 Test Item Value Reference Range Interpretation Comments POTASSIUM (BEAKER) 4.1 meq/L 3.5-5.1 Specimen slightly (test code = 379) hemolyzed [id number] 11:25:00 Test Item Value Reference Range Interpretation Comments PHOSPHORUS (BEAKER) 6.1 mg/dL 2.3-4.7 H Specimen slightly (test code = 604) hemolyzed LACTIC ACID, [id number] 09:47:00 Test Item Value Reference Range Interpretation Comments LACTATE BLOOD ARTERIAL (2) 1.6 mmol/L 0.5-2.2 (BEAKER) (test code = 2874) RAD, CHEST, 1 VIEW, NON [id number] 09:17:00Reason for exam:->chest tubes, s/p cardiac surgeryShould this be performed at the bedside?->Yes [facility] 1975 Sex: [...] MDReport Verified Date/Time: 01/17/2021 09:17:24 Reading Location: [facility] Radiology Reading Room HEPATIC FUNCTION PANEL 2021-01-17 [...] (test code = 347) hemolyzed COMPREHENSIVE METABOLIC [id number] 08:52:00 Test Item Value Reference Range Interpretation [...] S NOT APPLICABLE FOR DIALYSIS PATIEN TS. [id number] 08:45:00 Test Item Value Reference Range Interpretation Comments MAGNESIUM (BEAKER) 2.1 mg/dL 1.6-2.6 Specimen slightly (test code = 627) hemolyzed HEMOGLOBIN AND [id number] 08:12:00 Test Item Value Reference Range Interpretation Comments HEMOGLOBIN (BEAKER) (test code = 7.6 GM/DL 13.7-17.5 L 410) HEMATOCRIT (BEAKER) (test code = 23.3 % 40.1-51.0 L 411) B[employer] Worker ID - [id number], [id number] 08:04:00 Test Item Value Reference Range Interpretation Comments PH ARTERIAL (BEAKER) (test code = 383) 7.49 7.35-7.45 H CBC W/PLT COUNT & AUTO [id number] 06:06:00 Test Item Value Reference Range Interpretation [...] CONCENTRATION Adequate (CELLAVISION)(BEAKER) (test code = 3438) [employer] Worker ID - Imelda comments: Slide comments:[id number] 05:18:00 Test Item Value Reference Range Interpretation Comments PARTIAL THROMBOPLASTIN TIME 44.6 seconds 22.5-36.0 H (BEAKER) (test code = 760) PROTHROMBIN TIME/[id number] 05:17:00 Test Item Value Reference Range Interpretation Comments PROTIME (BEAKER) 30.0 seconds 11.9-14.2 H (test code = 759) INR (BEAKER) (test 2.89 See_Comment [Automat ed message] code = 370) The system [employer] generated this result transmitted ref erence range: <=5.90. The reference range was not used to int erpret this result as normal/abnormal . RECOMMENDED COUMADIN/WARFARIN INR THERAPY RANGESSTANDARD DOSE: 2.0 - 3.0 Includes: PROPHYLAXIS forvenous thrombosis, systemic embolization; TREATMENT for venous thrombosis and/or pulmonary embolus.HIGH RISK: Target INR is 2.5-3.5 for patients with mechanical heart valves.BLOOD GAS, [id number] 04:54:00 Test Item Value Reference Range Interpretation [...] (BEAKER) (test code = 1819) 80.0 POCT-GLUCOSE [id number] 03:44:00 Test Item Value Reference Range Interpretation Comments POC-GLUCOSE METER 81 mg/dL 70-110 : TESTED A T [facility] 6720 (BEAKER) (test code = NORM Tenorio SHULTZ [place], 1538) [address]: B[employer] Worker/Techni won ID = [id number] for MESERET ETTSeptember [id number] 02:05:00 Test Item Value Reference Range Interpretation Comments PHOSPHORUS (BEAKER) 10.0 mg/dL 2.3-4.7 HH Specimen slightly (test code = 604) hemolyzed [id number] 01:53:00 Test Item Value Reference Range Interpretation Comments MAGNESIUM (BEAKER) 2.4 mg/dL 1.6-2.6 Specimen slightly (test code = 627) hemolyzed [id number] 01:53:00 Test Item Value Reference Range Interpretation Comments POTASSIUM (BEAKER) 4.3 meq/L 3.5-5.1 Specimen slightly (test code = 379) hemolyzed [id number] 01:40:00 Test Item Value Reference Range Interpretation Comments POTASSIUM (BEAKER) 4.3 meq/L 3.5-5.1 Specimen slightly (test code = 379) hemolyzed LACTIC ACID, [id number] 01:14:00 Test Item Value Reference Range Interpretation Comments LACTATE BLOOD 6.4 mmol/L 0.5-2.2 HH Specimen sligh tly ARTERIAL (2) (BEAKER) hemoly zed (test code = 2874) B[employer] Worker ID - DBLACTIC ACID, [id number] 00:55:00 Test Item Value Reference Range Interpretation Comments LACTATE BLOOD 2.6 mmol/L 0.5-2.2 H Specimen sligh tly ARTERIAL (2) (BEAKER) hemoly zed (test code = 2874) [id number] 23:45:00 Test Item Value Reference Range Interpretation Comments FIBRINOGEN LEVEL (BEAKER) (test 261 mg/dl 225-434 code = 658) [id number] 23:45:00 Test Item Value Reference Range Interpretation Comments PARTIAL THROMBOPLASTIN TIME 49.5 seconds 22.5-36.0 H (BEAKER) (test code = 760) PROTHROMBIN [id number] 23:44:00 Test Item Value Reference Range Interpretation Comments PROTIME (BEAKER) 31.2 seconds 11.9-14.2 H (test code = 759) INR (BEAKER) (test 3.04 See_Comment [Automat ed message] code = 370) The system [employer] generated this result transmitted ref erence range: <=5.90. The reference range was not used to int erpret this result as normal/abnormal . RECOMMENDED COUMADIN/WARFARIN INR THERAPY RANGESSTANDARD DOSE: 2.0 - 3.0 Includes: PROPHYLAXIS forvenous thrombosis, systemic embolization; TREATMENT for venous thrombosis and/or pulmonary embolus.HIGH RISK: Target INR is 2.5-3.5 for patients with mechanical heart valves.POCT-GLUCOSE [id number] 22:21:00 Test Item Value Reference Range Interpretation Comments POC-GLUCOSE METER 96 mg/dL 70-110 : TESTED A T [facility] 6720 (BEAKER) (test code = NORM SHULTZ MS, 1538) [address]: B[employer] Worker/Techni won ID = [id number] for MESERET ETT, SEPTEMBER [id number] 21:19:00 Test Item Value Reference Range Interpretation [...] for patients with mechanical heart valves.HEMOGLOBIN AND [id number] 20:53:00 Test Item Value Reference Range Interpretation Comments HEMOGLOBIN (BEAKER) (test code = 7.1 GM/DL 13.7-17.5 L 410) HEMATOCRIT (BEAKER) (test code = 22.1 % 40.1-51.0 L 411) Brick [employer]n Worker ID - [id number], [id number] 20:47:00 Test Item Value Reference Range Interpretation Comments PH ARTERIAL (BEAKER) (test code = 383) 7.45 7.35-7.45 BLOOD GAS, [id number] 17:08:00 Test Item Value Reference Range Interpretation [...] Study 01/16/2021 SR. Gender Male Visit Number [id number] Race Unknown Room Number C823 Number Date of 1975 Referring Physician Zakia Sarah Age 45 year(s) Programmer Business Estela Mann [facility] Smoking Pipe Repairer Olvin Butler Interpreting Stan Murrell Physician Procedure [...] TR Velocity: 2.61 m/s TR Gradient: 27.15 mmHgFrank R. Howard [facility] Hospital2D Echo W/Doppler(CW/PW/Color)2021-01-16 16:58:48Ejection FractionSLEH ECHO HEARTLAB MKCKESSON CPACSInterface, External Ris In - 01/16/2021 4:59 PM CDTTransthoracic Echocardiography Report (TTE) Demographics Patient Name CROW KAUR Date of Study 01/16/2021 SR. Gender Male Visit Number [id number] Race Unknown Room Number C823 Number Date of 1975 Referring Physician Zakia Sarah Age 45 year(s) Programmer Business Estela Mann [facility] Smoking Pipe Repairer Olvin Butler Interpreting Physician YUNIER Carter Procedure [...] TR Velocity: 2.61 m/s TR Gradient: 27.15 mmHgFrank R. Howard Memorial Hospital2D Echo W/Doppler(CW/PW/Color)2021-01-16 16:58:48Ejection FractionSLEH ECHO HEARTLAB MKCKESSON CPACSInterface, External Ris In - 01/16/2021 4:59 PM CDTTransthoracic Echocardiography Report (TTE) Demographics Patient Name CROW KAUR Date of Study 01/16/2021 SR. Gender Male Visit Number [id number] Race Unknown Room Number C823 Number Date of 1975 Referring Physician Zakia Sarah Age 45 year(s) Programmer Business Estela Mann [facility] Smoking Pipe Repairer Olvin Butler Interpreting Stan Murrell, Physician Procedure [...] TR Velocity: 2.61 m/s TR Gradient: 27.15 mmHgFrank R. Howard Memorial HospitalRAD, CHEST, 1 VIEW, NON [id number] 16:44:00Reason for exam:->s/p left pleural CTShould this be performed at the bedside?->Yes [facility] 1975 Sex: [...] Delano Castro VerifiedDate/Time: 01/16/2021 16:44:51 Reading Location: [address] Transitional Reading Room [facility] signed by: DELANO CASTRO MD on 01/16/2021 04:44 PMRAD, CHEST, 1 VIEW, NON [id number] 16:24:00Reason for exam:->confirm ET placement, and post ROSC evaluationShould this be performed at the bedside?->Yes [facility] 1975 Sex: [...] Castro Verified Date/Time: 01/16/2021 16:24:00 Reading Location: [facility] C0Rust Transitional Reading Room BLOOD GAS, [id number] 15:46:00 Test Item Value Reference Range Interpretation [...] CONCENTRATION Adequate (CELLAVISION)(BEAKER) (test code = 3438) Brick [employer] Worker ID - Maryan Phillips comments: Slide comments:[id number] 15:43:00 Test Item Value Reference Range Interpretation [...] is 2.5-3.5 for patients with mechanical heart valves.[id number] 15:39:00 Test Item Value Reference Range Interpretation Comments PHOSPHORUS (BEAKER) (test code = 12.0 mg/dL 2.3-4.7 HH 604) Brick Kiln Worker ID - [id number] 15:38:00 Test Item Value Reference Range Interpretation Comments MAGNESIUM (BEAKER) (test code = 3.0 mg/dL 1.6-2.6 H 627) Brick Kiln Worker ID - DBCOMPREHENSIVE METABOLIC [id number] 15:38:00 Test Item Value Reference Range Interpretation [...] S NOT APPLICABLE FOR DIALYSIS PATIEN TS. Brick Kiln Worker ID - DBLACTIC ACID, [id number] 15:33:00 Test Item Value Reference Range Interpretation Comments LACTATE BLOOD ARTERIAL (2) 10.2 mmol/L 0.5-2.2 HH (BEAKER) (test code = 2874) Brick Kiln Worker ID - DBCBC W/PLT COUNT & AUTO [id number] 15:20:00 Test Item Value Reference Range Interpretation [...] (BEAKER) (test code = 413) BLOOD GAS, [id number] 15:19:00 Test Item Value Reference Range Interpretation [...] (BEAKER) 37.0 (test code = 1818) CALCIUM, [id number] 15:19:00 Test Item Value Reference Range Interpretation Comments CALCIUM IONIZED (BEAKER) (test 1.35 mmol/L 1.12-1.27 H code = 698) PH, BLOOD (BEAKER) (test code = 7.26 1810) POC-Blood gases, [id number] 14:45:00 Test Item Value Reference Range Interpretation [...] tomated message] code = 1838) The system [employer] generated this result transmit ari reference range : 80.0 - 90.0 mm Hg. The reference r kevin was not used to interpret this result as normal/abnormal . SO2, Arterial-POC (test 96.0 % 96-97 code = 1839) HCO3, Arterilal-POC 18.6 meq/L 21-29 L (test code = 1840) BE, Arterial-POC (test -9.0 meq/L -2-3 L : HALIMA ARI AT [facility] code = 1841) [address] [place], [address]: B[employer] Worker/Techni won ID = [id number] for MIGUEL GANDARA Lab Interpretation Abnormal (test code = 76964-2) [facility]-[id number] 14:45:00 Test Item Value Reference Range Interpretation Comments POC-Potassium (test code 5.7 meq/L 3.6-5.5 H : T ESTED AT [facility] = 1540) [address] [place] [address], [address]: Brick Kiln Worker/Techni won ID = [id number] for IBAY, MIGUEL Lab Interpretation (test Abnormal code = 89263-1) [facility]-[id number] 14:45:00 Test Item Value Reference Range Interpretation Comments POC-Sodium (test code = 134 meq/L 135-148 L : TE STED AT [facility] 1542) [address] [place] [address], [address]70 30: [employer] Worker/Techni won ID = [id number] for IBAY, MIGULE Lab Interpretation (test Abnormal code = 76079-1) [facility]-[id number] 14:45:00 Test Item Value Reference Range Interpretation Comments POC-Glucose (test code = 264 mg/dL 70-110 H : T ESTED AT [facility] 1855) [address] [place] [address], [address]70 30: [employer] Worker/Techni won ID = [id number] for IBAY, MIGUEL Lab Interpretation (test Abnormal code = 86985-3) [facility]-[id number] 14:45:00 Test Item Value Reference Range Interpretation Comments POC-Hemoglobin (test code 6.5 g/dL 13-16.8 L : TESTED AT [facility] = 1856) [address] [place] [address], 770 30: [employer] Worker/Techni won ID = [id number] for IBAY, MIGUEL Lab Interpretation (test Abnormal code = 67379-5) [facility]-[id number] 14:45:00 Test Item Value Reference Range Interpretation Comments POC-Hematocrit (test code 19 % 40-50 L : = 1857) [employer] Worker/Techni won ID = [id number] for IBAY, MIGUEL Lab Interpretation (test Abnormal code = 32171-2) [facility]-Blood gases, [id number] 14:45:00 Test Item Value Reference Range Interpretation [...] tomated message] code = 1838) The system [employer] h generated this result transmit ari reference range : 80.0 - 90.0 mm Hg. The reference r kevin was not used to interpret this result as normal/abnormal . SO2, Arterial-POC (test 96.0 % 96-97 code = 1839) HCO3, Arterilal-POC 18.6 meq/L 21-29 L (test code = 1840) BE, Arterial-POC (test -9.0 meq/L -2-3 L : HALIMA ARI AT [facility] code = 1841) [address] [place] [address], [address]: [employer] Worker/Techni won ID = [id number] for IBAY, MIGUEL Lab Interpretation Abnormal (test code = 12373-3) [facility]-[id number] 14:45:00 Test Item Value Reference Range Interpretation Comments POC-Potassium (test code 5.7 meq/L 3.6-5.5 H : T ESTED AT [facility] = 1540) [address] [place] [address], [address]: [employer] Worker/Techni won ID = [id number] for IBAY, MIGUEL Lab Interpretation (test Abnormal code = 48124-8) [facility]-[id number] 14:45:00 Test Item Value Reference Range Interpretation Comments POC-Sodium (test code = 134 meq/L 135-148 L : TE STED AT [facility] 1542) [address] [place] [address], [address]: [employer] Worker/Techni won ID = [id number] for IBAY, MIGUEL Lab Interpretation (test Abnormal code = 01239-0) [facility]-[id number] 14:45:00 Test Item Value Reference Range Interpretation Comments POC-Glucose (test code = 264 mg/dL 70-110 H : T ESTED AT [facility] 1855) [address] [facility], [address]: [employer] Worker/Techni won ID = [id number] for MIGUEL GANDARA Lab Interpretation (test Abnormal code = 58585-9) [facility]-[id number] 14:45:00 Test Item Value Reference Range Interpretation Comments POC-Hemoglobin (test code 6.5 g/dL 13-16.8 L : TESTED AT [facility] = 1856) [address] [facility], [address]: [employer] Worker/Techni won ID = [id number] for BIRGITY MIGUEL Lab Interpretation (test Abnormal code = 52886-8) [facility]-[id number] 14:45:00 Test Item Value Reference Range Interpretation Comments POC-Hematocrit (test code 19 % 40-50 L : = 1857) [employer] Worker/Techni won ID = [id number] for IBA[employer] MIGUEL Lab Interpretation (test Abnormal code = 40071-4) [facility]-Blood gases, [id number] 14:45:00 Test Item Value Reference Range Interpretation [...] meq/L -2-3 L : HALIMA ARI AT [facility] code = 1841) [address] [place], [address]: [employer] Worker/Techni won ID = [id number] for IBAY, MIGUEL Lab Interpretation Abnormal (test code = 89598-4) [facility]-[id number] 14:45:00 Test Item Value Reference Range Interpretation Comments POC-Potassium (test code 5.7 meq/L 3.6-5.5 H : T ESTED AT [facility] = 1540) [address] [place] [address], [address]: [employer] Worker/Techni won ID = [id number] for IBAY, MIGUEL Lab Interpretation (test Abnormal code = 02269-7) [facility]-[id number] 14:45:00 Test Item Value Reference Range Interpretation Comments POC-Sodium (test code = 134 meq/L 135-148 L : TE STED AT [facility] 1542) [address] [place] [address], 770 30: Brick Kiln Worker/Techni won ID = [id number] for IBAY, MIGUEL Lab Interpretation (test Abnormal code = 55785-4) [facility]-[id number] 14:45:00 Test Item Value Reference Range Interpretation Comments POC-Glucose (test code = 264 mg/dL 70-110 H : T ESTED AT [facility] 1855) [address] [place] [address], 770 30: Brick Kiln Worker/Techni won ID = [id number] for IBAY, MIGUEL Lab Interpretation (test Abnormal code = 89422-1) [facility]-[id number] 14:45:00 Test Item Value Reference Range Interpretation Comments POC-Hemoglobin (test code 6.5 g/dL 13-16.8 L : TESTED AT [facility] = 1856) [address] [place] [address], 770 30: Brick Kiln Worker/Techni won ID = [id number] for IBAY, MIGUEL Lab Interpretation (test Abnormal code = 24873-2) [facility]-[id number] 14:45:00 Test Item Value Reference Range Interpretation Comments POC-Hematocrit (test code 19 % 40-50 L : = 1857) Brick Kiln Worker/Techni won ID = [id number] for IBAY, MIGUEL Lab Interpretation (test Abnormal code = 92967-4) [facility] HospitalPO[facility] G[facility], [id number] 14:45:00 Test Item Value Reference Range Interpretation [...] -9.0 meq/L -2.0-3.0 L : TESTED AT [facility] 67 ARTERIAL-POC [facility], (BEAKER) (test code 21659: = 1841) Brick Kiln Worker/Techni won ID = [id number] for MIGUEL GANDARA [id number] 14:45:00 Test Item Value Reference Range Interpretation Comments POC-SODIUM (BEAKER) 134 meq/L 135-148 L : TESTED AT [place] [address] (test code = 1542) [facility], [address]: Brick Kiln Worker/Techni won ID = [id number] for MIGUEL GANDARA [id number] 14:45:00 Test Item Value Reference Range Interpretation Comments POC-POTASSIUM 5.7 meq/L 3.6-5.5 H : TESTED AT [place] [address] (BEAKER) (test code [facility], = 1540) [address]: Brick Kiln Worker/Techni won ID = [id number] for MIGUEL GANDARA [id number]-[id number] 14:45:00 Test Item Value Reference Range Interpretation Comments POC-HEMOGLOBIN 6.5 g/dL 13.0-16.8 L : TESTED AT B [facility] 6720 ([facility]) (test code = [place], 1856) [address]: Brick Kiln Worker/Techni won ID = [id number] for MIGUEL GANDARA [id number] 14:45:00 Test Item Value Reference Range Interpretation Comments POC-HEMATOCRIT 19 % 40-50 L : Brick Kiln Worker/Te chnician ID = ([facility]) (test code = 010966 for MIGUEL GANDARA 185) [id number] 14:45:00 Test Item Value Reference Range Interpretation Comments POC-GLUCOSE ([facility]) 264 mg/dL 70-110 H : TESTE D AT [facility] 6720 (test code = 1855) [place], [address]: Brick Kiln Worker/Techni won ID = [id number] for MIGUEL GANDARA POCT-GLUCOSE [id number] 14:32:00 Test Item Value Reference Range Interpretation Comments POC-GLUCOSE METER 70 mg/dL 70-110 : TESTED A T [facility] 6720 ([facility]) (test code = NORM [place] [facility], 1538) [address]: Brick Kiln Worker/Techni won ID = [id number] for [facility] JACOBY POC-Blood gases, [id number] 14:27:00 Test Item Value Reference Range Interpretation Comments Temp. Celsius-POC (test code = 1834) FIO2-POC (test code = 1835) pH, Venous-POC (test 7.225 7.320-7.420 L : TESTE D AT [facility] code = 1842) [address] [facility] [place] [address] PCO2, Venous-POC (test 57.9 See_Comment H If [...] meq/L -2-3 L : code = 1847) Brick Kiln Worker/Techni won ID = [id number] for MIGUEL GANDARA Lab Interpretation Abnormal (test code = 20290-6) [facility]-Blood gases, [id number] 14:27:00 Test Item Value Reference Range Interpretation Comments Temp. Celsius-POC (test code = 1834) FIO2-POC (test code = 1835) pH, Venous-POC (test 7.225 7.320-7.420 L : TESTE D AT [facility] code = 1842) 67[address] [place], [address] PCO2, Venous-POC (test 57.9 See_Comment H If [...] mated message] code = 1844) The system [employer] generated this result transmit ari reference range : 25.0 - 40.0 mm Hg. The reference r kevin was not used to interpret this result as normal/abnormal . SO2, Venous-POC (test 35.0 % 40-70 L code = 1845) HCO3, Venous-POC (test 24.0 meq/L 21-29 code = 1846) BE, Venous-POC (test -4.0 meq/L -2-3 L : code = 1847) Brick Kiln Worker/Techni won ID = [id number] for MIGUEL GANDARA Lab Interpretation Abnormal (test code = 45678-5) [facility]-Blood gases, [id number] 14:27:00 Test Item Value Reference Range Interpretation Comments Temp. Celsius-POC (test code = 1834) FIO2-POC (test code = 1835) pH, Venous-POC (test 7.225 7.320-7.420 L : TESTE D AT [facility] code = 1842) [address] [place], [address] PCO2, Venous-POC (test 57.9 See_Comment H If [...] mated message] code = 1844) The system [employer] generated this result transmit ari reference range : 25.0 - 40.0 mm Hg. The reference r kevin was not used to interpret this result as normal/abnormal . SO2, Venous-POC (test 35.0 % 40-70 L code = 1845) HCO3, Venous-POC (test 24.0 meq/L 21-29 code = 1846) BE, Venous-POC (test -4.0 meq/L -2-3 L : code = 1847) Brick Kiln Worker/Techni won ID = [id number] for MIGUEL GANDARA Lab Interpretation Abnormal (test code = 66878-0) [facility]CT[facility], [id number] 14:27:00 Test Item Value Reference Range Interpretation Comments TEMP, CELSIUS-POC (BEAKER) (test code = 1834) FIO2-POC (BEAKER) (test code = 1835) PH, VENOUS-POC 7.225 7.320-7.420 L : TESTED AT [facility] 6720 (BEAKER) (test code [place] [facility], = 1842) [address] PCO2, VENOUS-POC 57.9 mm Hg 41.0-51.0 H If pO2 is > 180, pCO2 may (BEAKER) (test code be posit ively biased = 1843) PO2, VENOUS-POC 26.0 mm Hg 25.0-40.0 (BEAKER) (test code = 1844) SO2, VENOUS-POC 35.0 % 40.0-70.0 L (BEAKER) (test code = 1845) HCO3, VENOUS-POC 24.0 meq/L 21.0-29.0 (BEAKER) (test code = 1846) BASE EXCESS, -4.0 meq/L -2.0-3.0 L : Brick Kiln Worker/Tech nician ID VENOUS-POC ([facility]) = [id number] for MIGUEL GANDARA (test code = 1847) [id number] 14:27:00 Test Item Value Reference Range Interpretation Comments [facility]-SOD[facility]UM [facility] 138 meq/L 135-148 : TESTED AT [place] [address] (test code = 1542) [facility] [address]: Brick Kiln Worker/Techni won ID = [id number] for MIGUEL GANDARA [id number] 14:27:00 Test Item Value Reference Range Interpretation Comments POC-POTASSIUM 6.2 meq/L 3.6-5.5 HH : TESTED AT [place] [address] ([facility] (test code [facility], = 1540) [address]: Brick Kiln Worker/Techni won ID = [id number] for MIGUEL GANDARA [id number]-[id number] 14:27:00 Test Item Value Reference Range Interpretation Comments POC-HEMOGLOBIN 6.5 g/dL 13.0-16.8 L : TESTED AT [place] [address] (BEAKER) (test code = NORM Tenorio [facility], 1856) [address]: Brick Kiln Worker/Techni won ID = [id number] for MIGUEL GANDARA [id number] 14:27:00 Test Item Value Reference Range Interpretation Comments POC-HEMATOCRIT 19 % 40-50 L : Brick Kiln Worker/Te chnician ID = ([facility]) (test code = 710594 for MIGUEL GANDARA 1857) [id number] 14:27:00 Test Item Value Reference Range Interpretation Comments POC-GLUCOSE ([facility]) 43 mg/dL 70-110 L : TESTE D AT [place] [address] (test code = 1855) [facility], [address]: Brick Kiln Worker/Techni won ID = [id number] for MIGUEL GANDARA CBC W/PLT COUNT & AUTO [id number] 11:27:00 Test Item Value Reference Range Interpretation Comments WHITE BLOOD CELL COUNT ([facility]) 17.2 K/ L 3.5-10.5 H (test code = 775) RED BLOOD CELL COUNT ([facility]) 2.89 M/ L 4.63-6.08 L (test [...] CONCENTRATION Adequate (CELLAVISION)(BEAKER) (test code = 3438) Brick Kiln Worker ID - Loren Sethi comments: Slide comments:SPUTUM CULTURE + GRAM [id number] 08:40:00 Test Item Value Reference Range Interpretation [...] epithelial RESULT cells (BEAKER) (test code = 175438) GRAM STAIN No organisms seen RESULT (BEAKER) (test code = 477210) <1+ Normal respiratory mendy presentBRONCHIAL CULTURE + GRAM [id number] 08:39:00 Test Item Value Reference Interpretation Comments [...] No organisms seen (BEAKER) (test code = 194958) 1+ Normal respiratory mendy [id number] 07:27:00 Test Item Value Reference Range Interpretation Comments PARTIAL THROMBOPLASTIN TIME 77.8 seconds 22.5-36.0 H (BEAKER) (test code = 760) [id number] 06:36:00 Test Item Value Reference Range Interpretation Comments PARTIAL THROMBOPLASTIN TIME 65.8 seconds 22.5-36.0 H (BEAKER) (test code = 760) PROTHROMBIN [id number] 06:35:00 Test Item Value Reference Range Interpretation Comments PROTIME (BEAKER) 16.1 seconds 11.9-14.2 H (test code = 759) INR (BEAKER) (test 1.31 See_Comment [Automat ed message] code = 370) The system [employer] generated this result transmitted ref erence range: <=5.90. The reference range was not used to int erpret this result as normal/abnormal . RECOMMENDED COUMADIN/WARFARIN INR THERAPY RANGESSTANDARD DOSE: 2.0 - 3.0 Includes: PROPHYLAXIS forvenous thrombosis, systemic embolization; TREATMENT for venous thrombosis and/or pulmonary embolus.HIGH RISK: Target INR is 2.5-3.5 for patients with mechanical heart valves.BASIC METABOLIC [id number] 05:07:00 Test Item Value Reference Range Interpretation [...] S NOT APPLICABLE FOR DIALYSIS PATIEN TS. Brick Kiln Worker ID - [id number] 04:57:00 Test Item Value Reference Range Interpretation Comments MAGNESIUM (BEAKER) (test code = 2.2 mg/dL 1.6-2.6 627) Brick Kiln Worker ID - [id number] 04:57:00 Test Item Value Reference Range Interpretation Comments PHOSPHORUS (BEAKER) (test code = 6.4 mg/dL 2.3-4.7 H 604) Brick Kiln Worker ID - ADMINRAD, CHEST, 1 VIEW, NON [id number] 01:08:00Reason for exam:->chest tubes, s/p cardiac surgeryShould this be performed at the bedside?->Yes[facility] : 1975 Sex: MFINAL REPORT CLINICAL INDICATION: Postop Comparison: 01/15/2021 The ca rdiomediastinal contours are stable. Central pulmonary vascular congestion and bilateral parenchymalopacities are similar to previous. There is no pneumothorax. A left chest tube has been removed. A left IJ CVC remains in place. Signed: Domingo Duron MDReport Verified Date/Time: 01/16/2021 01:08:13 POCT- GLUCOSE [id number] 00:14:00 Test Item Value Reference Range Interpretation Comments POC-GLUCOSE METER 96 mg/dL 70-110 : TESTED A T 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 ID = [id number] for CRESCENCIO PRIETO [id number] 23:26:00 Test Item Value Reference Range Interpretation Comments PARTIAL THROMBOPLASTIN TIME 54.3 seconds 22.5-36.0 H (TAMARA) (test code = 760) Lipid [id number] 22:53:00 Test Item Value Reference Range Interpretation Comments Triglycerides (test 84 mg/dL code = 2571-8) Cholesterol (test code 111 mg/dL = 2093-3) HDL (test code = 25 mg/dL 5-9) LDL Calculated (test 69 mg/dL code = 12404-2) CARLEY (test code = CARLEY) Triglyceride Reference Range: Low Risk <150 Borderline 150-199 High Risk 200-499 Very High Risk >=500 Cholesterol Reference Range: Low Risk <200 Borderline 200-239 High Risk >240 HDL Cholesterol Reference Range: Low Risk >=60 High Risk <40 LDL Cholesterol Reference Range: Optimal <100 Near Optimal 100-129 Borderline 130-159 High 160-189 Very High >=190 Brick Kiln Worker ID - DB [facility] HospitalLipid [id number] 22:53:00 Test Item Value Reference Range Interpretation Comments Triglycerides (test 84 mg/dL code = 2571-8) Cholesterol (test code 111 mg/dL = 2093-3) HDL (test code = 25 mg/dL 2084-9) LDL Calculated (test 69 mg/dL code = 96834-8) CARLEY (test code = CARLEY) Triglyceride Reference Range: Low Risk <150 Borderline 150-199 High Risk 200-499 Very High Risk >=500 Cholesterol Reference Range: Low Risk <200 Borderline 200-239 High Risk >240 HDL Cholesterol Reference Range: Low Risk >=60 High Risk <40 LDL Cholesterol Reference Range: Optimal <100 Near Optimal 100-129 Borderline 130-159 High 160-189 Very High >=190 Brick Kiln Worker ID - DB [facility] HospitalLipid [id number] 22:53:00 Test Item Value Reference Range Interpretation Comments Triglycerides (test 84 mg/dL code = 2571-8) Cholesterol (test code 111 mg/dL = 2093-3) HDL (test code = 25 mg/dL 2085-02) LDL Calculated (test 69 mg/dL code = 23590-1) CARLEY (test code = CARLEY) Triglyceride Reference Range: Low Risk <150 Borderline 150-199 High Risk 200-499 Very High Risk >=500 Cholesterol Reference Range: Low Risk <200 Borderline 200-239 High Risk >240 HDL Cholesterol Reference Range: Low Risk >=60 High Risk <40 LDL Cholesterol Reference Range: Optimal <100 Near Optimal 100-129 Borderline 130-159 High 160-189 Very High >=190 Brick Kiln Worker ID - DB [facility] HospitalLIPID [id number] 22:53:00 Test Item Value Reference Range Interpretation [...] Borderline 130-159 High 160-189 Very High >=190 Brick Kiln Worker ID - DBBLOOD [id number] 19:01:00 Test Item Value Reference Range Interpretation Comments CULTURE (BEAKER) (test No growth in 5 days code = 1095) BLOOD [id number] 18:01:00 Test Item Value Reference Range Interpretation Comments CULTURE (BEAKER) (test No growth in 5 days code = 1095) POCT-GLUCOSE [id number] 12:26:00 Test Item Value Reference Range Interpretation Comments POC-GLUCOSE METER 101 mg/dL 70-110 : TESTED A T [facility] 6720 (BEAKER) (test code = [place], 1538) [address]: Brick Kiln Worker/Techni won ID = [id number] for Paige Russell [id number] 09:21:00 Test Item Value Reference Range Interpretation Comments PARTIAL THROMBOPLASTIN TIME 35.0 seconds 22.5-36.0 (BEAKER) (test code = 760) RAD, CHEST, 1 VIEW, NON [id number] 09:14:00Reason for exam:->chest tubes, s/p cardiac surgeryShould this be performed at the bedside?->Yes [facility] : 1975 Sex: [...] Robert MDReport Verified Date/Time: 01/15/2021 09:14:18 Reading Location:[address] Neuro Reading Room POCT-GLUCOSE [id number] 08:23:00 Test Item Value Reference Range Interpretation Comments POC-GLUCOSE METER 104 mg/dL 70-110 : TESTED A T [facility] 6720 (BEAKER) (test code = [place], 1538) [address]: Brick Kiln Worker/Techni won ID = [id number] for Da vis, Paige CBC W/PLT COUNT & AUTO [id number] 06:50:00 Test Item Value Reference Range Interpretation [...] CONCENTRATION Adequate (CELLAVISION)(BEAKER) (test code = 3438) Brick Kiln Worker ID - Dariela OverholtUser comments: Slide comments:[id number] 04:17:00 Test Item Value Reference Range Interpretation Comments MAGNESIUM (BEAKER) (test code = 2.1 mg/dL 1.6-2.6 627) Brick Kiln Worker ID Doretha COOPER WCOMPREHENSIVE METABOLIC [id number] 04:17:00 Test Item Value Reference Range Interpretation [...] S NOT APPLICABLE FOR DIALYSIS PATIEN TS. Brick Kiln Worker ID Doretha COOPER WPROTHROMBIN TIME/[id number] 03:53:00 Test Item Value Reference Range Interpretation Comments PROTIME (BEAKER) 15.1 seconds 11.9-14.2 H (test code = 759) INR (BEAKER) (test 1.21 See_Comment [Automat ed message] code = 370) The system [employer] generated this result transmitted ref erence range: <=5.90. The reference range was not used to int erpret this result as normal/abnormal . RECOMMENDED COUMADIN/WARFARIN INR THERAPY RANGESSTANDARD DOSE: 2.0 - 3.0 Includes: PROPHYLAXIS forvenous thrombosis, systemic embolization; TREATMENT for venous thrombosis and/or pulmonary embolus.HIGH RISK: Target INR is 2.5-3.5 for patients with mechanical heart valves.POCT-GLUCOSE [id number] 21:26:00 Test Item Value Reference Range Interpretation Comments POC-GLUCOSE METER 77 mg/dL 70-110 : Notified RN/MD: TESTED (BEAKER) (test code = AT [facility] 6720 [facility] [place] 1538) [facility], [address]: Brick Kiln Worker/Techni won ID = [id number] for Tiago calvo (contract), [place] PROTHROMBIN TIME/[id number] 13:30:00 Test Item Value Reference Range Interpretation Comments PROTIME (BEAKER) 15.3 seconds 11.9-14.2 H (test code = 759) INR (BEAKER) (test 1.23 See_Comment [Automat ed message] code = 370) The system [employer] generated this result transmitted ref erence range: <=5.90. The reference range was not used to int erpret this result as normal/abnormal . RECOMMENDED COUMADIN/WARFARIN INR THERAPY RANGESSTANDARD DOSE: 2.0 - 3.0 Includes: PROPHYLAXIS forvenous thrombosis, systemic embolization; TREATMENT for venous thrombosis and/or pulmonary embolus.HIGH RISK: Target INR is 2.5-3.5 for patients with mechanical heart valves.Hepatitis B surface [id number] 11:35:00 Test Item Value Reference Range Interpretation Comments HBsAg Screen (test code Nonreactive Nonreactive = 5195-3) CARLEY (test code = CARLEY) Specimen is considered negative for HBsAg. Lab Interpretation (test Normal code = 71132-1) [facility] HospitalHepatitis B surface [id number] 11:35:00 Test Item Value Reference Range Interpretation Comments HBsAg Screen (test code Nonreactive Nonreactive = 5195-3) CARLEY (test code = CARLEY) Specimen is considered negative for HBsAg. Lab Interpretation (test Normal code = 94923-4) [facility] HospitalHepatiriverview [facility] B surface [id number] 11:35:00 Test Item Value Reference Range Interpretation Comments HBsAg Screen (test code Nonreactive Nonreactive = 5195-3) CARLEY (test code = CARLEY) Specimen is considered negative for HBsAg. Lab Interpretation (test Normal code = 37024-7) [facility] B SURFACE [id number] 11:35:00 Test Item Value Reference Range Interpretation Comments HEPATITIS B SURFACE ANTIGEN (2) Nonreactive Nonreactive (BEAKER) (test code = 2585) Specimen is considered negative for HBsAg.SURGICALLY OBTAINED CULTURE + GRAM [id number] 08:16:00 Test Item Value Reference Interpretation Comments [...] No organisms seen (BEAKER) (test code = 039642) CBC W/PLT COUNT & AUTO [id number] 08:08:00 Test Item Value Reference Range Interpretation [...] CONCENTRATION Decreased (CELLAVISION)(BEAKER) (test code = 3438) Brick Kiln Worker ID - Dariela OverholtUser comments: Slide comments:POCT-GLUCOSE METER 2021-01-14 07:33:00 Test Item Value Reference Range Interpretation Comments POC-GLUCOSE METER 103 mg/dL 70-110 : TESTED A T [facility] 6720 (BEAKER) (test code = [place]ACQUELINE [place], 1538) [address]: Brick Kiln Worker/Techni won ID = [id number] for Manuelito Chavez RAD, CHEST, 1 VIEW, NON [id number] 05:56:00Reason for exam:->ettShould this be performed at the bedside?->Yes [facility] 1975 Sex: [...] Re Cantu MDReport Verified Date/Time: 01/14/2021 05:56:32 [id number] 04:21:00 Test Item Value Reference Range Interpretation Comments MAGNESIUM (BEAKER) (test code = 2.3 mg/dL 1.6-2.6 627) Brick Kiln Worker ID - VALDEZ OMPREHENSIVE METABOLIC [id number] 04:05:00 Test Item Value Reference Range Interpretation [...] S NOT APPLICABLE FOR DIALYSIS PATIEN TS. Brick Kiln Worker ID - DBPOCT-GLUCOSE [id number] 03:46:00 Test Item Value Reference Range Interpretation Comments POC-GLUCOSE METER 83 mg/dL 70-110 : TESTED A T [facility] 6720 [facility] (test code = [place], 1538) [address]: Brick Kiln Worker/Techni won ID = [id number] for Manuelito Busby RAD, CHEST, 1 VIEW, NON [id number] 19:37:00Reason for exam:->LIJ HD catheter placementShould this be performed at the bedside?->Yes [facility] : 1975 Sex: [...] Verified Date/Time: 01/13/2021 19:37: 01 Reading Location: [facility] B1 C013W Consult Reading Room Central Line [...] to verify the correct patient, procedure, equipment, client support manager and site/side marked as required.Indications: [...] NoneType of anesthesia: NoneGrafts or Implants: NoneCHI [facility] CenterCentral Line (HD catheter J-Wire) 2021-01-13 18:52:29Chapo Knenedy NP 01/13/2021 6:58 PMCentral Line (HD catheter [...] to verify the correct patient, procedure, equipment, client support manager and site/side marked as required.Indications: [...] NoneType of anesthesia: NoneGrafts or Implants: NoneCH[facility] CenterCentral Line (HD catheter J-Wire) 2021-01-13 [...] to verify the correct patient, procedure, equipment, client support manager and site/side marked as required.Indications: [...] NoneType of anesthesia: NoneGrafts or Implants: NoneCHI Corona Regional Medical CenterPOCT-GLUCOSE [id number] 17:36:00 Test Item Value Reference Range Interpretation Comments POC-GLUCOSE METER 100 mg/dL 70-110 : TESTED A T [facility] 6720 (BEAKER) (test code = NORM Tenorio [facility], 1538) [address]: Brick Kiln Worker/Techni won ID = [id number] for NICK FONSECAABRAN STERLING BASIC METABOLIC [id number] 15:58:00 Test Item Value Reference Range Interpretation [...] S NOT APPLICABLE FOR DIALYSIS PATIEN TS. Brick Kiln Worker ID - [id number] 15:56:00 Test Item Value Reference Range Interpretation Comments MAGNESIUM (BEAKER) (test code = 2.2 mg/dL 1.6-2.6 627) Brick Kiln Worker ID - DBBLOOD GAS, [id number] 15:43:00 Test Item Value Reference Range Interpretation [...] FIO2 (BEAKER) (test code = 1819) 40.0 [id number] 12:57:00 Test Item Value Reference Range Interpretation Comments POTASSIUM (BEAKER) (test code = 3.9 meq/L 3.5-5.1 379) Brick Kiln Worker ID - VIRGILIO MBLOOD GAS, [id number] 12:14:00 Test Item Value Reference Range Interpretation [...] (BEAKER) (test code = 1819) 40.0 POCT-GLUCOSE [id number] 12:04:00 Test Item Value Reference Range Interpretation Comments POC-GLUCOSE METER 105 mg/dL 70-110 : TESTED A T [facility] 6720 (BEAKER) (test code = NORM [place]Z [place], 1538) [address]: Brick Kiln Worker/Techni won ID = [id number] for DU ABRAN ESPANA [id number] 09:59:00 Test Item Value Reference Range Interpretation Comments MAGNESIUM (BEAKER) (test code = 2.2 mg/dL 1.6-2.6 627) Brick Kiln Worker ID - [id number] 09:59:00 Test Item Value Reference Range Interpretation Comments PHOSPHORUS (BEAKER) (test code = 4.6 mg/dL 2.3-4.7 604) Brick Kiln Worker ID - [id number] 09:59:00 Test Item Value Reference Range Interpretation Comments POTASSIUM (BEAKER) (test code = 3.7 meq/L 3.5-5.1 379) Brick Kiln Worker ID - BSGLUCOSE-STAT [id number] 09:38:00 Test Item Value Reference Range Interpretation Comments GLUCOSE RANDOM (BEAKER) (test code 119 mg/dL 70-110 H = 652) HGB/HCT (H&H) - STAT [id number] 09:38:00 Test Item Value Reference Range Interpretation Comments HEMOGLOBIN (BEAKER) (test code = 8.3 GM/DL 13.0-16.8 L 410) HEMATOCRIT (BEAKER) (test code = 24.0 % 40.0-50.0 L 411) POTASSIUM-STAT [id number] 09:38:00 Test Item Value Reference Range Interpretation Comments POTASSIUM (BEAKER) (test code = 3.4 meq/L 3.6-5.5 L 379) BLOOD GAS, [id number] 09:37:00 Test Item Value Reference Range Interpretation [...] (test code = 1819) 40.0 SODIUM NA-STAT [id number] 09:34:00 Test Item Value Reference Range Interpretation Comments SODIUM (BEAKER) (test code = 381) 135 meq/L 136-145 L SPUTUM CULTURE + GRAM [id number] 08:30:00 Test Item Value Reference Interpretation Comments [...] 5-10 epithelial (BEAKER) (test code = cells [id number]) GRAM STAIN RESULT No organisms seen (BEAKER) (test code = 322461) <1+ Normal respiratory mendy presentCBC W/PLT COUNT [...] CONCENTRATION Decreased (CELLAVISION)(BEAKER) (test code = 3438) [employer] [place] Worker ID - Sun Menendez comments: Slide comments:RAD, CHEST, 1 VIEW, NON [id number] 07:21:00Reason for exam:->ettShould this be performed at the bedside?->YesCOLOR[facility]Name[facility] : 1975 Sex: MFINAL REPORT RAD, CHEST, 1 VIEW, NON DEPT INDICATION: ett COMPARISON: Prior day's exam FINDINGS: Portable frontal view of the chest. IMPRESSION: Support Lines: Stable. Lungs and pleura: No new consolidation. No pneumothorax.Heart and mediastinum: Stable contours. Stable surgical changes.Additional findings: None. Signed: JR Bebeto, Taye FRAGAepting Verified Date/Time: 01/13/2021 07:21:00 Reading Location: [facility] Radiology Reading Room COMPREHENSIVE METABOLIC [id number] 04:58:00 Test Item Value Reference Range Interpretation [...] S NOT APPLICABLE FOR DIALYSIS PATIEN TS. [employer] [place] Worker ID - LINA [id number] 04:46:00 Test Item Value Reference Range Interpretation Comments MAGNESIUM (BEAKER) (test code = 2.2 mg/dL 1.6-2.6 627) Brick [place] Worker ID - ILNA [id number] 04:46:00 Test Item Value Reference Range Interpretation Comments PHOSPHORUS (BEAKER) (test code = 4.3 mg/dL 2.3-4.7 604) Brick [employer] Worker ID - LINA LBLOOD GAS, [id number] 04:11:00 Test Item Value Reference Range Interpretation [...] FIO2 (BEAKER) (test code = 1819) 40.0 [id number] 21:46:00 Test Item Value Reference Range Interpretation Comments MAGNESIUM (BEAKER) (test code = 2.3 mg/dL 1.6-2.6 627) Brick [employer] Worker ID - [id number] 21:46:00 Test Item Value Reference Range Interpretation Comments PHOSPHORUS (BEAKER) (test code = 4.3 mg/dL 2.3-4.7 604) Brick [employer] Worker ID - [id number] 21:46:00 Test Item Value Reference Range Interpretation Comments POTASSIUM (BEAKER) (test code = 4.2 meq/L 3.5-5.1 379) Brick [place]n Worker ID - BSPH, [id number] 21:28:00 Test Item Value Reference Range Interpretation Comments PH ARTERIAL (BEAKER) (test code = 383) 7.46 7.35-7.45 H BASIC METABOLIC [id number] 15:47:00 Test Item Value Reference Range Interpretation [...] S NOT APPLICABLE FOR DIALYSIS PATIEN TS. Brick [place]n Worker ID - VALDEZ [id number] 15:39:00 Test Item Value Reference Range Interpretation Comments MAGNESIUM (BEAKER) (test code = 2.4 mg/dL 1.6-2.6 627) B[employer] Worker ID - VALDEZ [id number] 15:39:00 Test Item Value Reference Range Interpretation Comments PHOSPHORUS (BEAKER) (test code = 5.1 mg/dL 2.3-4.7 H 604) Brick [employer] Worker ID - VALDEZ MBASIC METABOLIC [id number] 10:19:00 Test Item Value Reference Range Interpretation [...] S NOT APPLICABLE FOR DIALYSIS PATIEN TS. Brick [employer]n Worker ID - VALDEZ [id number] 10:18:00 Test Item Value Reference Range Interpretation Comments MAGNESIUM (BEAKER) (test code = 2.5 mg/dL 1.6-2.6 627) B[employer] Worker ID - VALDEZ [id number] 10:18:00 Test Item Value Reference Range Interpretation Comments PHOSPHORUS (BEAKER) (test code = 5.9 mg/dL 2.3-4.7 H 604) Brick [place] Worker ID - VALDEZ MCBC W/PLT COUNT & AUTO [id number] 08:15:00 Test Item Value Reference Range Interpretation [...] CONCENTRATION Decreased (CELLAVISION)(BEAKER) (test code = 3438) B[employer] [place] Worker ID - Zaira Simons comments: Slide comments:POCT-GLUCOSE METER 2021-01-12 07:17:00 Test Item Value Reference Range Interpretation Comments POC-GLUCOSE METER 129 mg/dL 70-110 H : [facility] (BEAKER) (test code = [place], 1538) [address]: Brick Kiln Worker/Techni won ID = [id number] for Be rki, Meti COMPREHENSIVE METABOLIC [id number] 04:04:00 Test Item Value Reference Range Interpretation [...] S NOT APPLICABLE FOR DIALYSIS PATIEN TS. Brick [employer] Worker ID - VALDEZ [id number] 03:58:00 Test Item Value Reference Range Interpretation Comments MAGNESIUM (BEAKER) (test code = 2.7 mg/dL 1.6-2.6 H 627) Brick [employer]n Worker ID - VALDEZ [id number] 03:58:00 Test Item Value Reference Range Interpretation Comments PHOSPHORUS (BEAKER) (test code = 5.8 mg/dL 2.3-4.7 H 604) Brick Kiln Worker ID - VALDEZ MLACTIC ACID, [id number] 03:50:00 Test Item Value Reference Range Interpretation Comments LACTATE BLOOD ARTERIAL (2) 1.0 mmol/L 0.5-2.2 (BEAKER) (test code = 2874) Brick [employer]n Worker ID - VALDEZ MOXYGEN SATURATION, [id number] 03:42:00 Test Item Value Reference Range Interpretation Comments O2 SATURATION (MEASURED) (BEAKER) 70.7 % (test code = 1455) BLOOD GAS, [id number] 03:42:00 Test Item Value Reference Range Interpretation [...] (BEAKER) (test code = 1819) 40.0 CALCIUM, [id number] 03:41:00 Test Item Value Reference Range Interpretation Comments CALCIUM IONIZED (BEAKER) (test 1.15 mmol/L 1.12-1.27 code = 698) PH, BLOOD (BEAKER) (test code = 7.44 1810) POCT-GLUCOSE [id number] 03:37:00 Test Item Value Reference Range Interpretation Comments POC-GLUCOSE METER 132 mg/dL 70-110 H : TESTED A T [facility] 6720 (BEAKER) (test code = NORM [place] [facility], 1538) [address]: Brick Kiln Worker/Techni won ID = [id number] for Be rki, Meti RAD, CHEST, 1 VIEW, NON [id number] 03:17:00Reason for exam:->ettShould this be performed at the bedside?->Yes [facility] 1975 Sex: MFINAL REPORT CLINICAL INDICATION: Support lines. Comparison: 01/11/2021 at 1946 hours The patient is rotated to the left. The cardiomediastinal contours are stable. Central pulmonary vascular congestion and bilateral parenchymal opacities are unchanged. There is no pneumothorax. Support lines are stable. Signed: Domingo Duron Verified Date/Time: 01/12/2021 03:17:44 BASIC METABOLIC [id number] 22:54:00 Test Item Value Reference Range Interpretation [...] S NOT APPLICABLE FOR DIALYSIS PATIEN TS. Brick Kiln Worker ID - BSLACTIC ACID, [id number] 22:45:00 Test Item Value Reference Range Interpretation Comments LACTATE BLOOD ARTERIAL (2) 1.9 mmol/L 0.5-2.2 (BEAKER) (test code = 2874) Brick [employer]n Worker ID - BSBLOOD GAS, [id number] 22:37:00 Test Item Value Reference Range Interpretation [...] Time (test code = The system which 84489-1) generated this result transmitted ref erence range: 4.0 - 7. 0 minutes. The re ference range was not u sed to interpret this result as normal/abnor mal. TEG Fibrinogen Activity 71.6 See_Comment [Au tomated message] (test code = 31178-7) The sy stem which generated this result transmitted ref erence range: 61.0 - 7 3.0 degrees. The re ference range was not u sed to interpret this result as normal/abnor mal. TEG Platelet Aggregation 64.6 See_Comment [A utomated message] (test code = 92241-2) The sy stem which generated this result transmitted ref erence range: 55.0 - 6 5.0 MM. The reference r kevin was not used to interpret this result as normal/abnor mal. TEG Fibrinolysis (test 0.0 % 0-5 code = 93204-9) TEG-H Activated Clotting 5.8 See_Comment [A utomated [...] 1414) Lab Interpretation (test Normal code = 47311-5) [facility]21-[facility]-11 21:36:00 Test Item Value Reference Range Interpretation Comments TEG Activated Clotting 5.6 See_Comment [Aut omated message] Time (test code = The system which 81404-6) generated this result transmitted ref erence range: 4.0 - 7. 0 minutes. The re ference range was not u sed to interpret this result as normal/abnor mal. TEG Fibrinogen Activity 71.6 See_Comment [Au tomated message] (test code = 43682-4) The sy stem which generated this result transmitted ref erence range: 61.0 - 7 3.0 degrees. The re ference range was not u sed to interpret this result as normal/abnor mal. TEG Platelet Aggregation 64.6 See_Comment [A utomated message] (test code = 14095-6) The sy stem which generated this result transmitted ref erence range: 55.0 - 6 5.0 MM. The reference r kevin was not used to interpret this result as normal/abnor mal. TEG Fibrinolysis (test 0.0 % 0-5 code = 77778-1) TEG-H Activated Clotting 5.8 See_Comment [A utomated [...] 1414) Lab Interpretation (test Normal code = 97493-2) [facility]2021-01-11 21:36:00 Test Item Value Reference Range Interpretation Comments TEG Activated Clotting 5.6 See_Comment [Aut omated message] Time (test code = The system which 90496-5) generated this result transmitted ref erence range: 4.0 - 7. 0 minutes. The re ference range was not u sed to interpret this result as normal/abnor mal. TEG Fibrinogen Activity 71.6 See_Comment [Au tomated message] (test code = 24561-8) The sy stem which generated this result transmitted ref erence range: 61.0 - 7 3.0 degrees. The re ference range was not u sed to interpret this result as normal/abnor mal. TEG Platelet Aggregation 64.6 See_Comment [A utomated message] (test code = 22592-5) The sy stem which generated this result transmitted ref erence range: 55.0 - 6 5.0 MM. The reference r kevin was not used to interpret this result as normal/abnor mal. TEG Fibrinolysis (test 0.0 % 0-5 code = 58194-2) TEG-H Activated Clotting 5.8 See_Comment [A utomated [...] 1414) Lab Interpretation (test Normal code = 52945-5) [facility]ROMBOELASTO[facility]APH (TEG)2021-01-11 21:36:00 Test Item Value Reference Range [...] CONCENTRATION Decreased (CELLAVISION)(BEAKER) (test code = 3438) Brick [employer] Worker ID - ToritoSimran comments: Slide comments:BLOOD GAS, [...] (test code = 1819) 60.0 OXYGEN SATURATION, [id number] 20:58:00 Test Item Value Reference Range Interpretation Comments O2 SATURATION (MEASURED) (BEAKER) 76.5 % (test code = 1455) BASIC METABOLIC [id number] 20:23:00 Test Item Value Reference Range Interpretation [...] S NOT APPLICABLE FOR DIALYSIS PATIEN TS. Brick Kiln Worker ID - BSBLOOD GAS, [id number] 20:19:00 Test Item Value Reference Range Interpretation [...] (BEAKER) (test code = 1819) 60.0 GLUCOSE-STAT [id number] 20:19:00 Test Item Value Reference Range Interpretation Comments GLUCOSE RANDOM (BEAKER) (test code 172 mg/dL 70-110 H = 652) HGB/HCT (H&H) - STAT [id number] 20:19:00 Test Item Value Reference Range Interpretation Comments HEMOGLOBIN (BEAKER) (test code = 9.4 GM/DL 13.0-16.8 L 410) HEMATOCRIT (BEAKER) (test code = 28.0 % 40.0-50.0 L 411) SODIUM NA-STAT [id number] 20:17:00 Test Item Value Reference Range Interpretation Comments SODIUM (BEAKER) (test code = 381) 137 meq/L 136-145 POTASSIUM-STAT [id number] 20:17:00 Test Item Value Reference Range Interpretation Comments POTASSIUM (BEAKER) (test code = 4.4 meq/L 3.6-5.5 379) CALCIUM, [id number] 20:17:00 Test Item Value Reference Range Interpretation Comments CALCIUM IONIZED (BEAKER) (test 1.21 mmol/L 1.12-1.27 code = 698) PH, BLOOD (BEAKER) (test code = 7.28 1810) [id number] 20:13:00 Test Item Value Reference Range Interpretation Comments MAGNESIUM (BEAKER) (test code = 2.7 mg/dL 1.6-2.6 H 627) Brick Kiln Worker ID - [id number] 20:13:00 Test Item Value Reference Range Interpretation Comments PHOSPHORUS (BEAKER) (test code = 8.8 mg/dL 2.3-4.7 H 604) Brick [place]n Worker ID - BSLACTIC ACID, [id number] 20:08:00 Test Item Value Reference Range Interpretation Comments LACTATE BLOOD ARTERIAL (2) 2.4 mmol/L 0.5-2.2 H (BEAKER) (test code = 2874) Brick Kiln Worker ID - BSRAD, CHEST, 1 VIEW, NON [id number] 20:04:00Reason for exam:- >s/p cv surgeryShould this be performed at the bedside?->Yes [facility] : 1975 [...] tube are in place. Signed: Domingo Duron [facility] Verified Date/Time: 01/11/2021 20:04:03 [id number] 20:02:00 Test Item Value Reference Range Interpretation Comments FIBRINOGEN LEVEL (BEAKER) (test 318 mg/dl 225-434 code = 658) [id number] 20:02:00 Test Item Value Reference Range Interpretation Comments PARTIAL THROMBOPLASTIN TIME 30.3 seconds 22.5-36.0 (BEAKER) (test code = 760) PROTHROMBIN [id number] 20:01:00 Test Item Value Reference Range Interpretation Comments PROTIME (BEAKER) 18.8 seconds 11.9-14.2 H (test code = 759) INR (BEAKER) (test 1.60 See_Comment [Automat ed message] code = 370) The system [employer] generated this result transmitted ref erence range: [...] = 413) CBC W/PLT COUNT & AUTO [id number] 19:48:00 Test Item Value Reference Range Interpretation [...] (test code = 413) POC ACTIVATED CLOTTING [id number] 18:26:00 Test Item Value Reference Range Interpretation Comments Activated Clotting Time 125 sec : 74 -137 seconds, (test code = 441) Baseline: TESTED AT [address], [facility] 30: Brick Kiln Worker/Techni won ID = [id number] for CAST RO, [facility] ACTIV[facility] [id number] 18:26:00 Test Item Value Reference Range Interpretation Comments Activated Clotting Time 125 sec : 74 -137 seconds, (test code = 441) Baseline: TESTED AT [address], 770 30: Brick Kiln Worker/Techni won ID = [id number] for CAST RO, JESSICA [facility] ACTIVATED CLOTTING [id number] 18:26:00 Test Item Value Reference Range Interpretation Comments Activated Clotting Time 125 sec : 74 -137 seconds, (test code = 441) Baseline: TESTED AT [address], [facility] 30: Brick Kiln Worker/Techni won ID = [id number] for CAST RO, JESSICA [id number] 18:26:00 Test Item Value Reference Range Interpretation Comments ACTIVATED CLOTTING TIME 125 sec : 74 -137 seconds, (BEAKER) (test code = Baseli ne: TESTED AT 441) [address], [facility] 30: Brick Kiln Worker/Techni won ID = [id number] for CA STRO, JESSICA [id number] 18:25:00 Test Item Value Reference Range Interpretation Comments ACTIVATED CLOTTING TIME 120 sec : 74 -137 seconds, (BEAKER) (test code = Baseli ne: TESTED AT 441) [address], [facility] 30: Brick [place]n Worker/Techni won ID = [id number] for CA STRO, JESSICA [id number] 18:25:00 Test Item Value Reference Range Interpretation Comments ACTIVATED CLOTTING TIME 571 sec : 74 -137 seconds, (BEAKER) (test code = Baseli ne: TESTED AT 441) [address], [facility] 30: Brick [place]n Worker/Techni won ID = [id number] for CA STRO, JESSICA [id number] 18:25:00 Test Item Value Reference Range Interpretation Comments ACTIVATED CLOTTING TIME 687 sec : 74 -137 seconds, (BEAKER) (test code = Baseli ne: TESTED AT 441) [address], [facility] 30: Brick [place]n Worker/Techni won ID = [id number] for CA STRO, JESSICA [id number] 18:25:00 Test Item Value Reference Range Interpretation Comments ACTIVATED CLOTTING TIME 543 sec : 74 -137 seconds, (BEAKER) (test code = Baseli ne: TESTED AT 441) [address], [facility] 30: Brick Kiln Worker/Techni won ID = [id number] for CA STRO, JESSICA [id number] 18:25:00 Test Item Value Reference Range Interpretation Comments ACTIVATED CLOTTING TIME 368 sec : 74 -137 seconds, (BEAKER) (test code = Baseli ne: TESTED AT 441) [address], [facility] 30: Brick [place]n Worker/Techni won ID = [id number] for CA STRO, JESSICA PLATELET [id number] 18:11:00 Test Item Value Reference Range Interpretation Comments PLATELET COUNT (BEAKER) (test code 70 K/CU MM 150-450 L = 756) Brick [employer]n Worker ID - [id number] ID - [id number] ID - [id number] 17:51:00 Test Item Value Reference Range Interpretation Comments FIBRINOGEN LEVEL (BEAKER) (test 334 mg/dl 225-434 code = 658) [id number] 17:51:00 Test Item Value Reference Range Interpretation Comments PARTIAL THROMBOPLASTIN TIME 29.2 seconds 22.5-36.0 (BEAKER) (test code = 760) BLOOD GAS, [id number] 17:50:00 Test Item Value Reference Range Interpretation [...] (BEAKER) (test code = 1819) 60.0 GLUCOSE-STAT [id number] 17:50:00 Test Item Value Reference Range Interpretation Comments GLUCOSE RANDOM (BEAKER) (test code 165 mg/dL 70-110 H = 652) HGB/HCT (H&H) - STAT [id number] 17:50:00 Test Item Value Reference Range Interpretation Comments HEMOGLOBIN (BEAKER) (test code = 8.9 GM/DL 13.0-16.8 L 410) HEMATOCRIT (BEAKER) (test code = 26.0 % 40.0-50.0 L 411) CALCIUM, [id number] 17:50:00 Test Item Value Reference Range Interpretation Comments CALCIUM IONIZED (BEAKER) (test 1.16 mmol/L 1.12-1.27 code = 698) PH, BLOOD (BEAKER) (test code = 7.34 1810) PROTHROMBIN [id number] 17:50:00 Test Item Value Reference Range Interpretation Comments PROTIME (BEAKER) 21.8 seconds 11.9-14.2 H (test code = 759) INR (BEAKER) (test 1.93 See_Comment [Automat ed message] code = 370) The system [employer] generated this result transmitted ref erence range: <=5.90. The reference range was not used to int erpret this result as normal/abnormal . RECOMMENDED COUMADIN/WARFARIN INR THERAPY RANGESSTANDARD DOSE: 2.0 - 3.0 Includes: PROPHYLAXIS forvenous thrombosis, systemic embolization; TREATMENT for venous thrombosis and/or pulmonary embolus.HIGH RISK: Target INR is 2.5-3.5 for patients with mechanical heart valves.SODIUM NA-STAT [id number] 17:45:00 Test Item Value Reference Range Interpretation Comments SODIUM (BEAKER) (test code = 381) 137 meq/L 136-145 POTASSIUM-STAT [id number] 17:45:00 Test Item Value Reference Range Interpretation Comments POTASSIUM (BEAKER) (test code = 4.5 meq/L 3.6-5.5 379) SODIUM NA-STAT [id number] 17:24:00 Test Item Value Reference Range Interpretation Comments SODIUM (BEAKER) (test code = 381) 136 meq/L 136-145 POTASSIUM-STAT [id number] 17:24:00 Test Item Value Reference Range Interpretation Comments POTASSIUM (BEAKER) (test code = 4.3 meq/L 3.6-5.5 379) GLUCOSE-STAT [id number] 17:24:00 Test Item Value Reference Range Interpretation Comments GLUCOSE RANDOM (BEAKER) (test code 161 mg/dL 70-110 H = 652) HGB/HCT (H&H) - STAT [id number] 17:24:00 Test Item Value Reference Range Interpretation Comments HEMOGLOBIN (BEAKER) (test code = 8.7 GM/DL 13.0-16.8 L 410) HEMATOCRIT (BEAKER) (test code = 26.0 % 40.0-50.0 L 411) BLOOD GAS, [id number] 17:24:00 Test Item Value Reference Range Interpretation [...] (BEAKER) (test code = 1819) 21.0 CALCIUM, [id number] 17:22:00 Test Item Value Reference Range Interpretation Comments CALCIUM IONIZED (BEAKER) (test 1.34 mmol/L 1.12-1.27 H code = 698) PH, BLOOD (BEAKER) (test code = 7.33 1810) CALCIUM, [id number] 16:49:00 Test Item Value Reference Range Interpretation Comments CALCIUM IONIZED (BEAKER) (test 1.12 mmol/L 1.12-1.27 code = 698) PH, BLOOD (BEAKER) (test code = 7.46 1810) BLOOD GAS, [id number] 16:49:00 Test Item Value Reference Range Interpretation [...] (BEAKER) (test code = 1819) 97.0 GLUCOSE-STAT [id number] 16:49:00 Test Item Value Reference Range Interpretation Comments GLUCOSE RANDOM (BEAKER) (test code 152 mg/dL 70-110 H = 652) HGB/HCT (H&H) - STAT [id number] 16:49:00 Test Item Value Reference Range Interpretation Comments HEMOGLOBIN (BEAKER) (test code = 9.0 GM/DL 13.0-16.8 L 410) HEMATOCRIT (BEAKER) (test code = 26.0 % 40.0-50.0 L 411) SODIUM NA-STAT [id number] 16:48:00 Test Item Value Reference Range Interpretation Comments SODIUM (BEAKER) (test code = 381) 139 meq/L 136-145 POTASSIUM-STAT [id number] 16:48:00 Test Item Value Reference Range Interpretation Comments POTASSIUM (BEAKER) (test code = 5.0 meq/L 3.6-5.5 379) BLOOD GAS, [id number] 16:08:00 Test Item Value Reference Range Interpretation [...] (BEAKER) (test code = 1819) 70.0 POTASSIUM-STAT [id number] 16:08:00 Test Item Value Reference Range Interpretation Comments POTASSIUM (BEAKER) (test code = 5.8 meq/L 3.6-5.5 H 379) GLUCOSE-STAT [id number] 16:08:00 Test Item Value Reference Range Interpretation Comments GLUCOSE RANDOM (BEAKER) (test code 170 mg/dL 70-110 H = 652) HGB/HCT (H&H) - STAT [id number] 16:08:00 Test Item Value Reference Range Interpretation Comments HEMOGLOBIN (BEAKER) (test code = 9.0 GM/DL 13.0-16.8 L 410) HEMATOCRIT (BEAKER) (test code = 26.0 % 40.0-50.0 L 411) SODIUM NA-STAT [id number] 16:07:00 Test Item Value Reference Range Interpretation Comments SODIUM (BEAKER) (test code = 381) 135 meq/L 136-145 L BLOOD GAS, [id number] 15:42:00 Test Item Value Reference Range Interpretation [...] (BEAKER) (test code = 1819) 70.0 GLUCOSE-STAT [id number] 15:42:00 Test Item Value Reference Range Interpretation Comments GLUCOSE RANDOM (BEAKER) (test code 153 mg/dL 70-110 H = 652) HGB/HCT (H&H) - STAT [id number] 15:42:00 Test Item Value Reference Range Interpretation Comments HEMOGLOBIN (BEAKER) (test code = 9.6 GM/DL 13.0-16.8 L 410) HEMATOCRIT (BEAKER) (test code = 28.0 % 40.0-50.0 L 411) SODIUM NA-STAT [id number] 15:40:00 Test Item Value Reference Range Interpretation Comments SODIUM (BEAKER) (test code = 381) 136 meq/L 136-145 POTASSIUM-STAT [id number] 15:40:00 Test Item Value Reference Range Interpretation Comments POTASSIUM (BEAKER) (test code = 5.1 meq/L 3.6-5.5 379) BLOOD GAS, [id number] 15:13:00 Test Item Value Reference Range Interpretation [...] (BEAKER) (test code = 1819) 70.0 GLUCOSE-STAT [id number] 15:13:00 Test Item Value Reference Range Interpretation Comments GLUCOSE RANDOM (BEAKER) (test code 139 mg/dL 70-110 H = 652) HGB/HCT (H&H) - STAT [id number] 15:13:00 Test Item Value Reference Range Interpretation Comments HEMOGLOBIN (BEAKER) (test code = 8.9 GM/DL 13.0-16.8 L 410) HEMATOCRIT (BEAKER) (test code = 26.0 % 40.0-50.0 L 411) SODIUM NA-STAT [id number] 15:11:00 Test Item Value Reference Range Interpretation Comments SODIUM (BEAKER) (test code = 381) 139 meq/L 136-145 POTASSIUM-STAT [id number] 15:11:00 Test Item Value Reference Range Interpretation Comments POTASSIUM (BEAKER) (test code = 4.9 meq/L 3.6-5.5 379) [id number] 14:31:03Glenn Peraza Jr., MD 01/11/2021 8:54 PMTEE [...] aortic dissection All findings communicated to surgical team.[facility] 2021-01-11 14:31:03Glenn Peraza Jr., MD 01/11/2021 [...] aortic dissection All findings communicated to surgical team.[facility] 2021-01-11 14:31:03Glenn Peraza Jr., MD 01/11/2021 8:54 PMTEE Date: 01/11/2021 2:31 PM Sex: [place] Trey Galvez MD Examiner: Glenn Peraza [...] aortic dissection All findings communicated to surgical team.[facility] [id number] 14:22:00 Test Item Value Reference Range Interpretation Comments GLUCOSE RANDOM (BEAKER) (test code 109 mg/dL 70-110 = 652) SODIUM NA-STAT [id number] 14:22:00 Test Item Value Reference Range Interpretation Comments SODIUM (BEAKER) (test code = 381) 138 meq/L 136-145 POTASSIUM-STAT [id number] 14:22:00 Test Item Value Reference Range Interpretation Comments POTASSIUM (BEAKER) (test code = 4.4 meq/L 3.6-5.5 379) BLOOD GAS, [id number] 14:22:00 Test Item Value Reference Range Interpretation [...] = 1819) 100.0 HGB/HCT (H&H) - STAT [id number] 14:22:00 Test Item Value Reference Range Interpretation Comments HEMOGLOBIN (BEAKER) (test code = 10.1 GM/DL 13.0-16.8 L 410) HEMATOCRIT (BEAKER) (test code = 30.0 % 40.0-50.0 L 411) POCT-GLUCOSE [id number] 12:53:00 Test Item Value Reference Range Interpretation Comments POC-GLUCOSE METER 121 mg/dL 70-110 H : TESTED A T [facility] 6720 (BEAKER) (test code [facility], = 1538) [id number]: Brick [employer] Worker/Techni won ID = [id number] for Maikel robledo (contract), Syt damien RAD, CHEST, 1 VIEW, NON [id number] 10:43:00Reason for exam:->ettShould this be performed at the bedside?->Yes [facility] 1975 Sex: MFINAL REPORT RAD, CHEST, 1 VIEW, NON DEPT INDICATION: ett COMPARISON: Prior day's exam FINDINGS: Portable frontal view of the chest. IMPRESSION: Support Lines: Stable. Lungs and pleura: Stable patchy bilateral airspace disease. No pneumothorax.Heart and mediastinum: Stable contours. Additional findings: None. Signed: JR Bebeto, Taey Taylor Verified Date/Time: 01/11/2021 10:43:44 Reading Location: [facility] Radiology Reading Room BASIC METABOLIC [id number] 10:11:00 Test Item Value Reference Range Interpretation [...] S NOT APPLICABLE FOR DIALYSIS PATIEN TS. [place] Worker ID - VIRGILIO [id number] 10:10:00 Test Item Value Reference Range Interpretation Comments MAGNESIUM (BEAKER) (test code = 2.3 mg/dL 1.6-2.6 627) [place] Worker ID - VIRGILIO [id number] 10:10:00 Test Item Value Reference Range Interpretation Comments PHOSPHORUS (BEAKER) (test code = 6.2 mg/dL 2.3-4.7 H 604) [place] Worker ID - VIRGILIO BAILEYOOD GAS, [id number] 09:38:00 Test Item Value Reference Range Interpretation [...] (BEAKER) (test code = 1819) 40.0 CALCIUM, [id number] 09:34:00 Test Item Value Reference Range Interpretation Comments CALCIUM IONIZED (BEAKER) (test 1.19 mmol/L 1.12-1.27 code = 698) PH, BLOOD (BEAKER) (test code = 7.44 1810) POCT-GLUCOSE [id number] 06:58:00 Test Item Value Reference Range Interpretation Comments POC-GLUCOSE METER 108 mg/dL 70-110 : TESTED A T [facility] 6720 (BEAKER) (test code = RAYMONJACQUELINE Tenorio [facility], 1538) [id number]: Brick Kiln Worker/Techni won ID = [id number] for September COMPREHENSIVE METABOLIC [id number] 06:13:00 Test Item Value Reference Range Interpretation [...] S NOT APPLICABLE FOR DIALYSIS PATIEN TS. [place] [place] Worker ID - LINA LOperator ID - PIRAFY LCBC W/PLT COUNT & AUTO [id number] 06:08:00 Test Item Value Reference Range Interpretation [...] CONCENTRATION Decreased (CELLAVISION)(BEAKER) (test code = 3438) B[employer] [place] Worker ID - Zaira Simons comments: Slide comments:MAGNESIUM 2021-01-11 04:57:00 Test Item Value Reference Range Interpretation Comments MAGNESIUM (BEAKER) (test code = 2.3 mg/dL 1.6-2.6 627) Brick [place] Worker ID - LINA [id number] 04:57:00 Test Item Value Reference Range Interpretation Comments PHOSPHORUS (BEAKER) (test code = 6.4 mg/dL 2.3-4.7 H 604) Brick [place] Worker ID - LINA LCALCIUM, [id number] 04:43:00 Test Item Value Reference Range Interpretation Comments CALCIUM IONIZED (BEAKER) (test 1.13 mmol/L 1.12-1.27 code = 698) PH, BLOOD (BEAKER) (test code = 7.51 1810) BLOOD GAS, [id number] 04:42:00 Test Item Value Reference Range Interpretation [...] The SARS-Co V-2 target (test code = 9126215) nuclei c acids are not detected in [...] SARS-CoV-2/Flu/RSV by their healthcare provider. Results from [facility] Xpert Xpress SARS-CoV-2/Flu/RSV test should be correlated [...] of the Act.Fact Sheet for Healthcare Providers :https://www.[employer]/Documents/Xpert%20Xpress%20SARS%20CoV-2/Fact%20Sheets/3 02-3902%71DZTN-DLA-7%20HEALTHCARE%20PROVIDERS%20FACT%20SHEET.pdfFact Sheet for Healthcare Patients:https://www.[employer] /Documents/Xpert%20Xpress%20SARS%20Cov-2/Fact%20Sheets/302-3801%54TJWP-GTX-3%20P ATIENT%20FACT%20SHEET.pdfPOCT-GLUCOSE [id number] 00:19:00 Test Item Value Reference Range Interpretation Comments POC-GLUCOSE METER 88 mg/dL 70-110 : TESTED A T [facility] 6720 (BEAKER) (test code = NORM Tenorio [facility] [place], 1538) 115[address]: Brick [place]n Worker/Techni won ID = [id number] for Manuelito Busby [id number] 00:01:00 Test Item Value Reference Range Interpretation Comments PHOSPHORUS (BEAKER) (test code = 9.7 mg/dL 2.3-4.7 HH 604) B[employer] [place] Worker ID - BSBASIC METABOLIC [id number] 00:00:00 Test Item Value Reference Range Interpretation [...] S NOT APPLICABLE FOR DIALYSIS PATIEN TS. B[employer] [place] Worker ID - [id number] 23:57:00 Test Item Value Reference Range Interpretation Comments MAGNESIUM (BEAKER) (test code = 2.8 mg/dL 1.6-2.6 H 627) Brick [place] Worker ID - BSCALCIUM, [id number] 23:42:00 Test Item Value Reference Range Interpretation Comments CALCIUM IONIZED (BEAKER) (test 1.10 mmol/L 1.12-1.27 L code = 698) PH, BLOOD (BEAKER) (test code = 7.43 1810) 2D Echo W/Doppler(CW/PW/Color)2021-01-10 18:38:44Ejection FractionSLEH ECHO HEARTLAB MKCKESSON CPACSInterface, External Ris In - 01/10/2021 6:39 PM C DTTransthoracic Echocardiography Report (TTE) Demographics Patient Name CROW KAUR Date of Study 01/10/2021 SR. Gender Male Visit Number [id number] Race Unknown Room Number C826 Number Date of 1975 Referring Physician Taye Villatoro NP Age 45 year(s) Programmer Business Estela Mann [facility] Smoking Pipe Repairer Radha Spence [facility] Interpreting Shama Duran MD Physician [...] 72.37 mmHg Pulmonic Valve Estimated PASP: 92.37 [facility]Frank [facility]2D [facility] W/Doppler(CW/PW/Color)2021-01-10 18:38:44Ejection FractionSLEH ECHO HEARTLAB MKCKESSON CPACSInterface, External Ris In - 01/10/2021 6:39 PM C DTTransthoracic Echocardiography Report (TTE) Demographics Patient Name CROW KAUR Date of Study 01/10/2021 SR. Gender Male Visit Number [id number] Race Unknown Room Number C826 Number Date of 1975 Referring Physician Taye Villatoro NP Age 45 year(s) Programmer Business Estela Mann [facility] Smoking Pipe Repairer Radha Spence [facility] Interpreting Shama Duran MD Physician [...] 72.37 mmHg Pulmonic Valve Estimated PASP: 92.37 mmHgFrank R. Howard [facility] Hospital2D Echo W/Doppler(CW/PW/Color)2021-01-10 18:38:44Ejection FractionSLEH ECHO HEARTLAB ANGEL CPACSInterface, External Ris In - 01/10/2021 6:39 PM C DTTransthoracic Echocardiography Report (TTE) Demographics Patient Name CROW KAUR Date of Study 01/10/2021 SR. Gender Male Visit Number [id number] Race Unknown Room Number C826 Number Date of 1975 Referring Physician Taye Villatoro NP Age 45 year(s) Programmer Business Estela Mann [facility] Smoking Pipe Repairer Radha Spence [facility] Interpreting Shama Duran MD Physician [...] mmHg Pulmonic Valve Estimated PASP: 92.37 mmHgCHI [facility]ona [facility] Medical [id number] 17:13:00 Test Item Value Reference Range Interpretation Comments FIBRINOGEN LEVEL (DEISIAKER) (test 417 mg/dl 225-434 code = 658) [id number] 17:13:00 Test Item Value Reference Range Interpretation [...] CONCENTRATION Decreased (CELLAVISION)(BEAKER) (test code = 3438) Brick [place]n Worker ID - Samantha comments: Slide comments:PROTHROMBIN TIME/INR 2021-01-10 17:12:00 Test Item Value Reference Range Interpretation Comments PROTIME (BEAKER) 16.0 seconds 11.9-14.2 H (test code = 759) INR (BEAKER) (test 1.30 See_Comment [Automat ed message] code = 370) The system [employer] generated this result transmitted ref erence range: <=5.90. The reference range was not used to int erpret this result as normal/abnormal . RECOMMENDED COUMADIN/WARFARIN INR THERAPY RANGESSTANDARD DOSE: 2.0 - 3.0 Includes: PROPHYLAXIS forvenous thrombosis, systemic embolization; TREATMENT for venous thrombosis and/or pulmonary embolus.HIGH RISK: Target INR is 2.5-3.5 for patients with mechanical heart valves.Blood gas, [id number] 16:44:00 Test Item Value Reference Range Interpretation Comments pH, Roque (test code = 7.28 7.32-7.42 L 2746-6) pCO2, Roque (test code = 56 See_Comment H [Aut omated 715) message] The sy stem which generated this result transmitted reference range : 41 - 51 mm Hg. The reference range was not used to interpret this result as normal/abnormal . pO2, Roque (test code = 43 See_Comment H [Auto mated 7475-2) message] The sy stem which generated this result transmitted reference range : 25 - 40 mm Hg. The reference range was not used to interpret this result as normal/abnormal . O2 Sat, Roque (test code 71.2 % 40-70 H = 2711-0) HCO3, Roque (test code = 26 mmol/L 21-29 98114-2) Base Excess, Roque (test -1.3 mmol/L -2-3 code = 1927-3) Patient Temperature 37.3 (test code = 8310-5) FIO2 (test code = 1819) 50 Lab Interpretation Abnormal (test code = 10670-3) [facility], [id number] 16:44:00 Test Item Value Reference Range Interpretation [...] Roque (test code = 26 mmol/L 21-29 22058-4) Base Excess, Roque (test -1.3 mmol/L -2-3 code = 1927-3) Patient Temperature 37.3 (test code = 8310-5) FIO2 (test code = 1819) 50 Lab Interpretation Abnormal (test code = 05076-8) [facility], [id number] 16:44:00 Test Item Value Reference Range Interpretation [...] Roque (test code = 26 mmol/L 21-29 50897-8) Base Excess, Roque (test -1.3 mmol/L -2-3 code = 1927-3) Patient Temperature 37.3 (test code = 8310-5) FIO2 (test code = 1819) 50 Lab Interpretation Abnormal (test code = 28191-2) [facility] HospitalBL[facility]OD [facility], [id number] 16:44:00 Test Item Value Reference Range Interpretation [...] FIO2 (BEAKER) (test code = 1819) 50.0 [id number] 16:42:00 Test Item Value Reference Range Interpretation Comments PHOSPHORUS (BEAKER) (test code = 10.1 mg/dL 2.3-4.7 HH 604) Brick [place] Worker ID - ADMINCOMPREHENSIVE METABOLIC [id number] 16:41:00 Test Item Value Reference Range Interpretation [...] S NOT APPLICABLE FOR DIALYSIS PATIEN TS. Brick [place]n Worker ID - [id number] 16:30:00 Test Item Value Reference Range Interpretation Comments MAGNESIUM (BEAKER) (test code = 2.8 mg/dL 1.6-2.6 H 627) Brick [place]n Worker ID - ADMINLactic acid, [id number] 16:25:00 Test Item Value Reference Range Interpretation Comments Lactate, Venous (test code 1.21 mmol/L 0.5-2.2 = 2872) CARLEY (test code = CARLEY) Brick Kiln Worker ID - ADMIN Lab Interpretation (test Normal code = 05605-5) [facility] HospitalLactic acid, [id number] 16:25:00 Test Item Value Reference Range Interpretation Comments Lactate, Venous (test code 1.21 mmol/L 0.5-2.2 = 2872) CARLEY (test code = CARLEY) Brick [place]n Worker ID - ADMIN Lab Interpretation (test Normal code = 41283-1) [facility] HospitalLactic acid, [id number] 16:25:00 Test Item Value Reference Range Interpretation Comments Lactate, Venous (test code 1.21 mmol/L 0.5-2.2 = 2872) CARLEY (test code = CARLEY) Brick Kiln Worker ID - ADMIN Lab Interpretation (test Normal code = 99004-2) [facility] CenterLACTIC ACID, [id number] 16:25:00 Test Item Value Reference Range Interpretation Comments LACTATE BLOOD VENOUS (2) (BEAKER) 1.21 mmol/L 0.50-2.20 (test code = 2872) Brick [place]n Worker ID - ADMINCBC W/PLT COUNT & AUTO [id number] 16:13:00 Test Item Value Reference Range Interpretation [...] = 2801) RAD, CHEST, 1 VIEW, NON [id number] 16:00:00Reason for exam:->ETTShould this be performed at the bedside?->Yes [facility] 1975 Sex: [...] MDReport Verified Date/Time: 01/10/2021 16:00:56 Reading Location: [facility] POCT-GLUCOSE [id number] 15:13:00 Test Item Value Reference Range Interpretation Comments POC-GLUCOSE METER 114 mg/dL 70-110 H : TESTED A T [facility] 6720 (TAMARA) (test code = NORM Tenorio [facility], 1538) [address]: Brick Kiln Worker/Techni won ID = [id number] for ABRAN PALOMINO, TUNNELED CATHETER [id number] 10:49:00FINAL REPORT TUNNELED DIALYSIS CATHETER PLACEMENT, UNDER [...] MDReport Verified Date/Time: 02/03/2019 10:49:11 Reading Location: [place] [address] Angio Body Reading Room COMPREHENSIVE METABOLIC [id number] 07:04:00 Test Item Value Reference Range Interpretation [...] (test code = 413) HEPATITIS B SURFACE [id number] 01:25:00 Test Item Value Reference Range Interpretation Comments HEPATITIS B SURFACE ANTIGEN (2) Nonreactive Nonreactive (BEAKER) (test code = 2585) BASIC METABOLIC [id number] 01:10:00 Test Item Value Reference Range Interpretation [...] S NOT APPLICABLE FOR DIALYSIS PATIEN TS. [id number] 01:03:00 Test Item Value Reference Range Interpretation Comments POTASSIUM (BEAKER) (test code = 5.4 meq/L 3.5-5.1 H 379) PROTHROMBIN TIME/[id number] 01:01:00 Test Item Value Reference Range Interpretation [...] for patients wiht mechanical heart valves.BASIC METABOLIC [id number] 19:02:00 Test Item Value Reference Range Interpretation [...]
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
[2021-09-26 00:55] VITALS: BP 142/101; TEMP 98.6; O2SAT 99
== END 2021-09-25 18:44 | disposition home or self-care (01) ==
LOC: ER 17:43
DX: M62.838 Other muscle spasm (principal); V59.50XA Passenger in pick-up truck or van injured in collision with unspecified motor vehicles in traffic accident, initial encounter; I12.0 Hypertensive chronic kidney disease with stage 5 chronic kidney disease or end stage renal disease; N18.6 End stage renal disease; Z99.2 Dependence on renal dialysis; Z86.73 Personal history of transient ischemic attack (TIA), and cerebral infarction without residual deficits; Z95.4 Presence of other heart-valve replacement
CPT/HCPCS: 99284

== ENCOUNTER 2021-11-03 07:41 | Day surgery (SDC) | payer OTHER ==
[2021-11-03] MEDS ORDERED: NA CHLORIDE 0.9% 250 ML ONE (08:05)
[2021-11-03 08:29] VITALS: BMI 25.2
[2021-11-03 11:51] VITALS: O2SAT 100
[2021-11-03 11:52] VITALS: BP 122/77; TEMP 97.9
[2021-11-03 13:06] LABS: Hematocrit 26.7 % (39.6-49.0)
== END 2021-11-03 13:20 | disposition home or self-care (01) ==
LOC: DS 07:41
PROVIDERS: ATTEND Internal Medicine Nephrology
DX: D64.9 Anemia, unspecified (principal)
CPT/HCPCS: 36415; 86900; 86850; 86901; 85018; 85014; 36430; P9016; J7050

== ENCOUNTER 2022-03-27 13:20 | Inpatient (IN) | payer OTHER ==
[2022-03-27] MEDS ORDERED: ASPIRIN 81 MG CHEWABLE TABLET ONE ×2 (13:36→15:23)
[2022-03-27] MEDS ORDERED: NA CHLORIDE 0.9% 500 ML ONE (13:37)
[2022-03-27] MEDS ORDERED: NA CHLORIDE 0.9% 1,000 ML ONE ×2 (13:37→15:24)
[2022-03-27] MEDS ORDERED: CALCIUM GLUCONATE 1 GM IVPB 1 GM/50 ML BAG IV ONE (13:37)
[2022-03-27] MEDS ORDERED: ALBUTEROL 2.5 MG/3 ML NEB SOL ONE ×2 (13:41→13:43)
[2022-03-27] MEDS ORDERED: INSULIN -REGULAR HUMAN 50 UNIT/0.5 ML ML ONE (13:43)
[2022-03-27] MEDS ORDERED: DOPAMINE/D5W 400 MG/250 ML BAG IV ONE (13:47)
--- OUTSIDE RECORDS SUMMARY | 2022-03-27 13:51 | XMS REPORT | Continuity of Care Document ---
:1975 Author Organization [facility] t Address [address] [place] [address] [address] [place] [address] Care Team Providers Name Role Phone Pcp MD, No Primary Care Physician Unavailable TED RUBI Attending Clinician Unavailable BENEDICTO WITT Attending Clinician Unavailable SUDEEP PIERCE Attending Clinician Unavailable JU ORTIZ Attending Clinician Unavailable Tereza Galvez MD Attending Clinician [phone] Annita FAYE, Jaison Attending Clinician Hugo FAYE, Alden Suh Attending Clinician Francheska Dash Attending Clinician Unavailable Debra FAYE, Arcadio Hodge Attending Clinician Sharon Mendez MD Attending Clinician Suzie Beth MD Attending Clinician TEREZA GALVEZ Attending Clinician Unavailable WILL STRAUSS Attending Clinician Unavailable Agus King Attending Clinician Faculty, Vascular Surg Attending Clinician Unavailable Ted Rubi MD Attending Clinician Doctor Unassigned, Friendly Attending Clinician Unavailable RIVKA PATIÑO Attending Clinician Unavailable TED RUBI Admitting Clinician Unavailable BENEDICTO WITT Admitting Clinician Unavailable MAURA GRIGGS Admitting Clinician Unavailable RIVKA PATIÑO Admitting Clinician Unavailable Payers Payer Name Policy Type Policy Number Effective Date Expiration Date S ource [facility] [id number] 2017 PLUS 00:00:00 [place]ID [place] [id number] 2019 00:00:00 [facility] STAR [id number] 2018 PLAN 00:00:00 Problems Condition Condition Condition Status Onset Resolution Last Treating Co mments Source Name Details Category Date Date Treatment Clinician Date s/p s/p Disease Active [facility]Replace [facility] - 00:00: Medica l Omar - Omar - 00 Cent er 01/11/21 01/11/21 Endocardit Endocardit Disease Active [facility] Mitral Mitral Disease Active [facility]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 01-11 [facility] regurgitat regurgitat 00:00: Me dical ion ion 00 Center ESRD (end ESRD (end Disease Active Overview: Univers stage stage 3-11 Added ity of renal renal 00:00: automatic [place] disease) disease) 00 ally from [facility] request Branch for surgery [id number] HYPERTENSI HYPERTENS Diagnosis Active 2018-062019-04-02 Memoria VE THALAMI VERÓNICA 0-06 22:34:00 l THALAMI 00:00: [place] Active 00 03/15/2019 [facility] Hyperkalem Hyperkalem Disease Active [facility] ia ia 02-02 [facility] 00:[facility]: Medical 00 Center Shock Shock Disease Active [facility] Right Right Disease Active [facility] ventricula ventricula [facility] r Medical dysfunctio dysfunctio Ce nter n n Acute Acute Disease Active [facility] blood loss blood loss [facility] anemia anemia [facility] Thrombocyt Thrombocyt Disease Active [facility] openia openia [facility] Hyperglyce Hyperglyce Disease Active [facility] sylwia sylwia [facility] ESRD (end ESRD (end Disease Active [facility] stage stage [facility] renal renal Medical disease) disease) Center on on dialysis dialysis Delirium Delirium Disease Active [facility] due to due to [facility] medical medical Medical condition condition Cent er with with behavioral behavioral disturbanc disturbanc e e Essential Essential Disease Active [facility] hypertensi hypertensi [facility] kes on on Medical Center Cardiac Cardiac Disease Active [facility] arrest arrest [facility] Cardiogeni Cardiogeni Disease Active [facility] c shock c shock [facility] PEA PEA Disease Active [facility] (Pulseless (Pulseless [facility] electrical electrical Me dical activity) activity) Cent er Hypovolemi Hypovolemi Disease Active [facility] c shock c shock [facility] Hemorrhagi Hemorrhagi Disease Active [facility] c shock c shock [facility] Metabolic Metabolic Disease Active [facility] acidosis acidosis [facility] Lactic Lactic Disease Active [facility] acidosis acidosis [facility] Hypoglycem Hypoglycem Disease Active [facility] ia ia [facility] Hemothorax Hemothorax Disease Active [facility] on left on left [facility] Coagulopat Coagulopat Disease Active C [facility] hy hy [facility] Vasogenic Vasogenic Disease Active [facility] shock shock [facility] Anemia, Anemia, Disease Active [facility] unspecifie unspecifie [facility] d type d type Medical Center Acute Acute Disease Active [facility] respirator respirator [facility] y failure y failure Medi diallo with with Center hypoxia hypoxia HYPERTENSI HYPERTENS Diagnosis Active 2019-04-02 Memoria VE VERÓNICA 22:34:00 l EMERGENCY EMERGENCY Herm sonya Active [facility] Allergies, Adverse Reactions, Alerts Allergy Allergy Status Severity Reaction(s) Onset Inactive Treating Comm ents Source Name Type Date Date Clinician NO KNOWN Drug Active Univers ALLERGIE Class ity of S [facility] NO KNOWN Allergy Active [facility] Social History Social Habit Start Date Stop Date Quantity Comments Source History SDSD [facility] Alcohol Std Medical Cente r Drinks History SDSD [facility] Alcohol Binge Medical Eleuterio ter Exposure to Not sure [facility] (event) Sex Assigned At [facility] Alcohol intake 2021-01-23 2021-01-[address] [place] [facility] 00:00:00 00:00:00 non-drinker of Medical Ce nter alcohol (finding) Tobacco use and 2019-08-19 2019-08-19 Never used Universit y of exposure 00:00:00 00:00:00 [facility] History SDOH 2019-02-18 2019-02-[address] [facility] Alcohol Frequency 00:00:00 00:00:00 Medical Center Smoking Status Start Date Stop Date Source Never smoker [facility] Unknown if ever smoked [facility] Medications Ordered Filled Start Stop Current Ordering Indication Dosage Frequency Signature Comments Components Source Medication Medication Date Date Medication? Clinician (SIG) Name Name NIFEdipine 2020- No 90mg Q.5D Take [address] [address] (ADALAT CC) 01-11-04 by mouth 2 L ukes 90 MG 24 hr 22:58: 00:00 (two) Medi diallo tablet 20 :00 times Center daily. NIFEdipine 2020- No 90mg Q.5D Take [address] (ADALAT CC) 01-11- by mouth 2 L ukes 90 MG 24 hr 22:58: 00:00 (two) Medi diallo tablet 20 :00 times Center daily. NIFEdipine 2020- No 90mg Q.5D Take [address] (ADALAT CC) 01-11- by mouth 2 L ukes 90 MG 24 hr 22:58: 00:00 (two) Medi diallo tablet 20 :00 times Center daily. calcitriol Yes .5ug QD Take 0.[address] (ROCALTROL) 8-03 mcg by [facility]ukes 0.5 MCG 16:49: mouth Medical capsule 21 daily. Center cholecalcif Yes 5000U QD Take 5,[address] dori, 8-03 Units by [facility] vitamin D3, 16:49: mouth Medic al 5,000 unit 21 daily. Center Tab hydrALAZINE Yes 100mg [id number] Take [address] (APRESOLINE 8-03 [id number] mg by L ukes ) 100 MG 16:49: 3D mouth 3 Medica l tablet 21 (three) Center times daily. ramipril Yes 10mg QD Take [address] (ALTACE) 10 8-03 by mouth Luke s MG capsule 16:49: daily. Medic al 21 Center sevelamer Yes 800mg Take [address] (RENVELA) 8-03 mg by [facility]ukes 800 mg 16:49: mouth 3 Medical tablet 21 (three) Center times daily with meals. calcitriol Yes .5ug QD Take 0.[address] (ROCALTROL) 8-03 mcg by [facility]ukes 0.5 MCG 16:49: mouth Medical capsule 21 daily. Center cholecalcif 0 Yes 5000U QD Take 5,[address] dori, 8-03 Units by [facility]ukes vitamin D3, 16:49: mouth Medic al 5,000 unit 21 daily. Center Tab hydrALAZINE 0 Yes 100mg [id number] Take [address] (APRESOLINE 8-03 [id number] mg by L ukes ) 100 MG 16:49: 3D mouth 3 Medica l tablet 21 (three) Center times daily. ramipril 2020-0 Yes 10mg QD Take [address] (ALTACE) 10 8-03 by mouth Luke s MG capsule 16:49: daily. Medic al 21 Center sevelamer 2020-0 Yes 800mg Take [address] (RENVELA) 8-03 mg by [facility]ukes 800 mg 16:49: mouth 3 Medical tablet 21 (three) Center times daily with meals. calcitriol 0 Yes .5ug QD Take 0.[address] (ROCALTROL) 8-03 mcg by Lukes 0.5 MCG 16:49: mouth Medical capsule 21 daily. Center cholecalcif 0 Yes 5000U QD Take 5,[address] dori, 8-03 Units by [facility]ukes vitamin D3, 16:49: mouth Medic al 5,000 unit 21 daily. Center Tab hydrALAZINE 0 Yes 100mg [id number] Take [address] (APRESOLINE 8-03 [id number] mg by L ukes ) 100 MG 16:49: 3D mouth 3 Medica l tablet 21 (three) Center times daily. ramipril 2020-0 Yes 10mg QD Take [address] (ALTACE) 10 8-03 by mouth Luke s MG capsule 16:49: daily. Medic al 21 Center sevelamer 2020-0 Yes 800mg Take [address] (RENVELA) 8-03 mg by [facility]ukes 800 mg 16:49: mouth 3 Medical tablet 21 (three) Center times daily with meals. minoxidiL 2020-0 Yes 1{tbl} QD Take [address] (LONITEN) 5-24 tablet by [facility]ukes 2.5 MG 00:00: mouth Medical tablet 00 daily. Center terazosin 0 Yes 1{capsu Take [address] (HYTRIN) 10 5-24 le} capsule by [facility] MG capsule 00:00: mouth 2 Medi diallo 00 (two) Center times daily as needed. minoxidiL 0 Yes 1{tbl} QD Take [address] (LONITEN) 5-24 tablet by [facility]ukes 2.5 MG 00:00: mouth Medical tablet 00 daily. [place] terazosin 0 Yes 1{capsu Take [address] (HYTRIN) 10 5-24 le} capsule by [facility] k[facility] MG capsule 00:00: mouth 2 Medi diallo 00 (two) Center times daily as needed. minoxidiL 0 Yes 1{tbl} QD Take [address] (LONITEN) 5-24 tablet by [facility]ukes 2.5 MG 00:00: mouth Medical tablet 00 daily. [place] terazosin Yes 1{capsu Take [address] (HYTRIN) 10 5-24 le} capsule by [facility]idi kes MG capsule 00:00: mouth 2 Medi diallo 00 (two) Center times daily as needed. metoprolol Yes 1{tbl} QD Take [address] tartrate 5-17 tablet by Lukes (LOPRESSOR) 00:00: mouth Medic al 100 MG 00 daily. [place] tablet metoprolol 0 Yes 1{tbl} QD Take [address] tartrate 5-17 tablet by Lukes (LOPRESSOR) 00:00: mouth Medic al 100 MG 00 daily. [place] tablet metoprolol 0 Yes 1{tbl} QD Take [address] tartrate 5-17 tablet by Lukes (LOPRESSOR) 00:00: mouth Medic al 100 MG 00 daily. [place] tablet RAMIPRIL 2019-0 [facility] mouth. ity of 14:19: [address] SEVELAMER 2019-0 Yes Take by Unive rs HCL ORAL 6-08 mouth. ity of 14:19: [address] METOPROLOL 2019-0 Yes Take by Univ ers TARTRATE 6-08 mouth. ity of ORAL 14:19: [address] terazosin 2019-0 Yes Take by Unive rs HCl (HYTRIN 6-08 mouth. ity of ORAL) 14:19: [address] RAMIPRIL 2019-0 Yes Take by Univer s ORAL 6-08 mouth. ity of 14:19: [address] SEVELAMER 2019-0 Yes Take by Unive rs HCL ORAL 6-08 mouth. ity of 14:19: [address] METOPROLOL 0 Yes Take by Univ ers TARTRATE 6-08 mouth. ity of ORAL 14:19: [address] terazosin 0 Yes Take by Unive rs HCl (HYTRIN 6-08 mouth. ity of ORAL) 14:19: [address] RAMIPRIL 2019-0 Yes Take by Univer s ORAL 6-08 mouth. ity of 14:19: [address] SEVELAMER 2019-0 Yes Take by Unive rs HCL ORAL 6-08 mouth. ity of 14:19: [address] METOPROLOL 0 Yes Take by Univ ers TARTRATE 6-08 mouth. ity of ORAL 14:19: [address] terazosin Yes Take by Unive rs HCl (HYTRIN 6-08 mouth. ity of ORAL) 14:19: [address] No known No Univers medications ity [facility] No known No Univers medications ity [facility] No known No Univers medications ity [facility] No known No Univers medications ity [facility] No known No Univers medications ity [facility] No known No Univers medications ity [facility] No known No [facility] Vital Name Observation Time [...] blood 2019-08-19 16:08:00 121 mm[Hg] Univer sity [facility] Diastolic blood 2019-08-19 16:08:00 57 mm[facility]Hg[facility] 2019-08-19 16:08:00 76 /min [facility] Body temperature 2019-08-19 16:08:00 36.5 [place] [facility] Respiratory rate 2019-08-19 16:08:00 18 /min [facility] Body height 2019-08-19 16:08:00 180.3 cm [facility] Body weight 2019-08-19 16:08:00 86.773 kg [facility] BMI 2019-08-19 16:08:00 26.68 kg/m2 [facility] Heart rate 2021-02-02 12:00:00 63 /min [facility] Body temperature 2021-02-02 12:00:00 37.44 [place] [facility] Respiratory rate 2021-02-02 12:00:00 21 /min [facility] Oxygen saturation in 2021-02-02 12:00:00 100 /min [facility] Arterial blood by Medical Ce nter Pulse oximetry Heart rate 2021-02-02 10:45:00 63 /min [facility] Respiratory rate 2021-02-02 10:45:00 20 /min [facility] Oxygen saturation in 2021-02-02 10:45:00 100 /min [facility] Arterial blood by Medical Ce nter Pulse oximetry Body temperature 2021-02-02 08:00:00 37.33 [place] [facility] Systolic blood 2021-02-02 03:46:00 172 mm[Hg] [facility] Diastolic blood 2021-02-02 03:46:00 89 mm[Hg] [facility] Body weight 2021-01-31 06:00:00 70.217 kg [facility] BMI 2021-01-31 06:00:00 19.88 kg/m2 [facility] Body height 2021-01-10 15:00:00 188 cm [facility] Procedures Procedure Date / Time Performing Clinician Source Performed POCT-GLUCOSE METER 2021-02-02 Michael Steve [facility] 07:25:00 [facility] POCT-GLUCOSE METER 2021-02-02 Michael Steve [facility] 03:45:00 [facility] PROTHROMBIN TIME/INR 2021-02-[address] [facility] 03:36:00 [facility] CALCIUM, IONIZED 2021-02-[address] [facility] 03:36:00 [facility] CBC W/PLT COUNT & AUTO 2021-02-02 [facility] Lisbet Mcgratha [facility] DIFFERENTIAL 03:36:00 [facility] MAGNESIUM 2021-02-02 [facility] Mcgrath, Kasia [facility] 03:36:00 [facility] PHOSPHORUS 2021-02-02 [facility] Mcgrath, Kasia [facility] 03:36:00 [facility] BASIC METABOLIC PANEL (7) 2021-02-[address] [facility] 03:36:00 [facility] PTH, INTACT 2021-02-[address] [facility] 03:36:00 [facility] XR CHEST 1 VIEW PORTABLE / 2021-02-[address] [facility] 00:16:00 [facility] POCT-GLUCOSE METER 2021-02-[address] [facility] 23:57:00 [facility] POCT-GLUCOSE METER 2021-02-[address] [facility] 15:26:00 [facility] HEMODIALYSIS INPATIENT 2021-02-[address] [facility] 14:59:53 [facility] POCT-GLUCOSE METER 2021-02-[address] [facility] 14:47:00 [facility] CT CHEST WITHOUT IV CONTRAST 2021-02-[address] [facility] 12:29:00 [facility] POCT-GLUCOSE METER 2021-02-[address] [facility] 11:36:00 [facility] CALCIUM, IONIZED 2021-02-01 Beram, Jihad [facility] 04:21:00 [facility] CBC W/PLT COUNT & AUTO 2021-02-[address] [facility] DIFFERENTIAL 04:21:00 [facility] MAGNESIUM 2021-02-01 Richey Mcgrath, Kasia [facility] 04:21:00 [facility] PHOSPHORUS 2021-02-01 [facility] Mcgrath, Kasia [facility] 04:21:00 [facility] BASIC METABOLIC PANEL (7) 2021-02-[address] [facility] 04:21:00 [facility] PROTHROMBIN TIME/INR 2021-02-[address] [facility] 04:21:00 [facility] POCT-GLUCOSE METER 2021-02-[address] [facility] 01:05:00 [facility] XR CHEST 1 VIEW PORTABLE / 2021-02-[address] [facility] 00:21:00 [facility] POCT-GLUCOSE METER 2021-01-[address] [facility] 21:51:00 [facility] HEMOGLOBIN AND HEMATOCRIT 2021-01-[address] [facility] 17:12:00 [facility] POCT-GLUCOSE METER 2021-01-[address] [facility] 11:25:00 [facility] POCT-GLUCOSE METER 2021-01-[address] [facility] 07:13:00 [facility] PT/APTT 2021-01-[address] [facility] 04:25:00 [facility] APTT 2021-01-31 Beram, Joyceremy [facility] 04:25:00 [facility] BLOOD GAS, ARTERIAL 2021-01-31 Beram, Jihad [facility] 04:25:00 [facility] CALCIUM, IONIZED 2021-01-31 Beram, Jihad [facility] 04:25:00 [facility] LACTIC ACID, ARTERIAL 2021-01-31 [facility] 04:25:00 [facility] CBC W/PLT COUNT & AUTO 2021-01-31 [facility], Kasia [facility] DIFFERENTIAL 04:25:00 [facility] MAGNESIUM 2021-01-31 [facility] Kasia [facility] 04:25:00 [facility] PHOSPHORUS 2021-01-31 [facility] Kasia [facility] 04:25:00 [facility] BASIC METABOLIC PANEL (7) 2021-01-[address] [facility] 04:25:00 [facility] XR CHEST 1 VIEW PORTABLE / 2021-01-31 [facility] McgrathButch hermosilloieta [facility] 00:45:00 [facility] PREPARE LEUKO-REDUCED RBC 2021-01-[address] [facility] 23:54:00 [facility] BLOOD GAS, ARTERIAL 2021-01-[address] [facility] 21:04:00 [facility] BLOOD GAS, ARTERIAL 2021-01-[address] [facility] 21:03:00 [facility] SODIUM NA-STAT LAB 2021-01-[address] [facility] 21:03:00 [facility] POTASSIUM-STAT LAB 2021-01-[address] [facility] 21:03:00 [facility] GLUCOSE-STAT LAB 2021-01-[address] [facility] 21:03:00 [facility] HGB/HCT (H&H) - STAT LAB 2021-01-[address] [facility] 21:03:00 [facility] PROTHROMBIN TIME/INR 2021-01-[address] [facility] 19:20:00 [facility] MAGNESIUM 2021-01-30 Beram, Jihad [facility] 19:20:00 [facility] CALCIUM, IONIZED 2021-01-30 Beram, Jihad [facility] 19:20:00 [facility] BASIC METABOLIC PANEL (7) 2021-01-[address] [facility] 19:20:00 [facility] POCT-GLUCOSE METER 2021-01-30 Valluri, Sri Nixon [facility] 18:36:00 [facility] HEMODIALYSIS INPATIENT 2021-01-[address] [facility] 14:24:20 [facility] POCT-GLUCOSE METER 2021-01-30 Valluri, Maura Nixon [facility] 12:27:00 [facility] PROTHROMBIN TIME/INR 2021-01-[address] [facility] 12:18:00 [facility] POCT-GLUCOSE METER 2021-01-30 Valluri, Sri Nixon [facility] 06:08:00 [facility] BLOOD GAS, ARTERIAL 2021-01-30 Beram, Jihad [facility] 04:30:00 [facility] BLOOD GAS, ARTERIAL 2021-01-30 Ber, Jihad [facility] 02:05:00 [facility] CALCIUM, IONIZED 2021-01-30 Beram, Jihad [facility] 02:05:00 [facility] LACTIC ACID, ARTERIAL 2021-01-30 RicheyKasia Aguirre [facility] 02:05:00 [facility] OXYGEN SATURATION, MEASURED 2021-01-30 Kaiden Pickarda, Kasia [facility] 02:05:00 [facility] PT/APTT 2021-01-[address] [facility] 02:04:00 [facility] APTT 2021-01-30 Beram, Jihad [facility] 02:04:00 [facility] CBC W/PLT COUNT & AUTO 2021-01-30 [facility] Mcgrath, Kasia [facility] DIFFERENTIAL 02:04:00 [facility] MAGNESIUM 2021-01-30 Richeybulmaro Pickarda, Kasia [facility] 02:04:00 [facility] PHOSPHORUS 2021-01-30 Richeybulmaro Pickarda, Kasia [facility] 02:04:00 [facility] BASIC METABOLIC PANEL (7) 2021-01-30 Richeybulmaro Mcgrath, Kasia [facility] 02:04:00 [facility] XR CHEST 1 VIEW PORTABLE / 2021-01-[address] [facility] 00:36:00 [facility] POCT-GLUCOSE METER 2021-01-[address] [facility] 23:18:00 [facility] TRANSFUSE LEUKO-REDUCED RED 2021-01-[address] [facility] BLOOD CELLS 23:08:22 [facility] CBC W/PLT COUNT & AUTO 2021-01-29 Richeybulmaro Mcgrath, Kasia [facility] DIFFERENTIAL 19:08:00 [facility] TRANSFUSE LEUKO-REDUCED RED 2021-01-29 Dilshad Vera Back [facility] BLOOD CELLS 18:10:59 [facility] POCT-GLUCOSE METER 2021-01-[address] [facility] 18:04:00 [facility] PROTHROMBIN TIME/INR 2021-01-29 Dilshad [address]anin [facility] 17:57:[address] [facility] [address] BRAIN WITHOUT IV CONTRAST 2021-01-29 Dilshad, Vera Nazanni [facility] 17:28:00 [facility] CTA BRAIN 2021-01-29 Dilshad, Vera Nazanin [facility] 17:28:00 [facility] APTT 2021-01-[address] [facility] 15:06:00 [facility] PROTHROMBIN TIME/INR 2021-01-29 Dilshad, Vera Nazanin [facility] 15:06:00 [facility] ABORH, MANUAL 2021-01-29 Dilshad, Vera Nazanin [facility] 13:49:00 [facility] POCT-GLUCOSE METER 2021-01-[address] [facility] 12:15:[address] [facility] [address] BRAIN WITHOUT IV CONTRAST 2021-01-[address] [facility] 09:32:00 [facility] RED BLOOD CELL COUNT 2021-01-[address] [facility] 09:12:00 [facility] PT/APTT 2021-01-[address] [facility] 09:12:00 [facility] POCT-GLUCOSE METER 2021-01-29 Arlenchidiana maria Maura Hailetik [facility] 07:18:00 [facility] PHOSPHORUS 2021-01-[address] [facility] 06:11:00 [facility] MAGNESIUM 2021-01-[address] [facility] 06:11:00 [facility] APTT 2021-01-29 Bertoro, Luz [facility] 06:11:00 [facility] BLOOD GAS, ARTERIAL 2021-01-29 Beram, Jessehad [facility] 06:11:00 [facility] CALCIUM, IONIZED 2021-01-29 [facility], Jessehad [facility] 06:11:00 [facility] LACTIC ACID, ARTERIAL 2021-01-29 Kasia [facility] 06:11:00 [facility] OXYGEN SATURATION, MEASURED 2021-01-[address] [facility] 06:11:00 [facility] CBC W/PLT COUNT & AUTO 2021-01-[address] [facility] DIFFERENTIAL 06:11:00 [facility] HEPATIC FUNCTION PANEL 2021-01-[address] [facility] 06:11:00 [facility] DIGOXIN LEVEL 2021-01-[address] [facility] 06:11:00 [facility] BASIC METABOLIC PANEL (7) 2021-01-[address] [facility] 06:11:00 [facility] XR CHEST 1 VIEW PORTABLE / 2021-01-[address] [facility] 00:52:00 [facility] POCT-GLUCOSE METER 2021-01-29 Valluri, Sri Nixon [facility] 00:43:00 [facility] Center POCT-GLUCOSE METER 2021-01-28 Valluri, Sri Nixon [facility] 18:17:00 [facility] Center BLOOD GAS, ARTERIAL 2021-01-28 Beram, Jihad [facility] 18:13:00 Medical Center POTASSIUM 2021-01-28 Valluri, Sri Nixon [facility] 18:11:00 Medical Center MAGNESIUM 2021-01-28 Neagra, Christopher [facility] 18:11:00 Medical Center PHOSPHORUS 2021-01-28 Neagra, Christopher [facility] 18:11:00 Medical Center SODIUM 2021-01-28 Neagra, Christopher [facility] 18:11:00 Medical Center XR CHEST 1 VIEW PORTABLE / 2021-01-28 [facility]kson [facility] 17:33:00 [facility] HEMODIALYSIS INPATIENT 2021-01-28 Neagra, Vasile [facility] 12:55:00 [facility] POCT-GLUCOSE METER 2021-01-28 Valluri, Maura Alicea [facility] BASIC METABOLIC PANEL (7) 2021-01-28 Neagra, Vasile [facility] 08[facility] MAGNESIUM 2021-01-28 Neagra, Christopher [facility] 08:38:00 [facility] PHOSPHORUS 2021-01-28 Neagra, Christopher [facility] 08:38:00 [facility] PROTHROMBIN TIME/INR 2021-01-[address] [facility] 08:36:00 [facility] POCT-GLUCOSE METER 2021-01-28 Valluri, Maura Hailetik [facility] 06:13:00 [facility] POTASSIUM 2021-01-28 Valluri, Sri Nixon [facility] 04:58:00 [facility] APTT 2021-01-28 Beram, Jihad [facility] 04:58:00 [facility] BLOOD GAS, ARTERIAL 2021-01-28 Beram, Jihad [facility] 04:58:00 [facility] LACTIC ACID, ARTERIAL 2021-01-28 Kasia Rubio [facility] 04:58:00 [facility] OXYGEN SATURATION, MEASURED 2021-01-28 [facility] Kasia Mcgrath [facility] 04:58:00 [facility] CBC W/PLT COUNT & AUTO 2021-01-[address] [facility] DIFFERENTIAL 04:58:00 [facility] MAGNESIUM 2021-01-28 [facility] Alcides, Kasia [facility] 04:58:00 [facility] PHOSPHORUS 2021-01-28 [facility] Kasia [facility] 04:58:00 [facility] HEPATIC FUNCTION PANEL 2021-01-[address] [facility] 04:58:00 [facility] PROTHROMBIN TIME/INR 2021-01-[address] [facility] 04:58:00 [facility] CALCIUM, IONIZED 2021-01-[address] [facility] 04:57:00 [facility] XR CHEST 1 VIEW PORTABLE / 2021-01-28 [facility] 03:13:00 [facility] POCT-GLUCOSE METER 2021-01-27 Valluri, Sri Nixon [facility] 23:51:00 [facility] POTASSIUM 2021-01-27 Valluri, Sri Nixon [facility] 20:43:00 [facility] BLOOD GAS, ARTERIAL 2021-01-27 Uk, Nduka Bowen [facility] 20:43:00 [facility] LACTIC ACID, ARTERIAL 2021-01-27 Uk, Nduka Bowen [facility] 20:43:00 [facility] CBC (HEMOGRAM ONLY) 2021-01-27 Ukah, Nduka Bowen [facility] 20:43[facility]00 [facility] X[facility] CHEST 1 VIEW PORTABLE / 2021-01-27 Ukah, Nduka Bowen [facility] 20:25:00 [facility] POTASSIUM 2021-01-27 Valluri, Sri Nixon [facility] 18:02:00 [facility] MAGNESIUM 2021-01-27 Neagra, Christopher [facility] 18:02:00 [facility] PHOSPHORUS 2021-01-27 Neagra, Christopher [facility] 18:02:00 [facility] SODIUM 2021-01-27 Neagra, Chuckyopher [facility] 18:02:00 [facility] POCT-GLUCOSE METER 2021-01-27 Valluri, Maura Nixon [facility] 11:42:00 [facility] MAGNESIUM 2021-01-27 Bertoro, Jessehad [facility] 11:18:00 [facility] PHOSPHORUS 2021-01-27 Neagra, Vasile [facility] 11:18:00 [facility] POTASSIUM 2021-01-27 Valluri, Maura Nixon [facility] 11:18:00 [facility] PROTHROMBIN TIME/INR 2021-01-[address] [facility] 06:40:00 [facility] BASIC METABOLIC PANEL (7) 2021-01-27 Artisa, Vasile [facility] 06:40:00 [facility] POTASSIUM 2021-01-27 Valluri, Maura Lillyk [facility] 03:31:00 [facility] APTT 2021-01-27 Beram, Luz [facility] 03:31:00 [facility] CALCIUM, IONIZED 2021-01-27 [facility] Joyced [facility] 03:31:00 [facility] LACTIC ACID, ARTERIAL 2021-01-27 RicheyKasia Aguirre [facility] 03:31:00 [facility] OXYGEN SATURATION, MEASURED 2021-01-[address] [facility] 03:31:00 [facility] CBC W/PLT COUNT & AUTO 2021-01-[address] [facility] DIFFERENTIAL 03:31:00 [facility] MAGNESIUM 2021-01-[address] [facility] 03:31:00 [facility] PHOSPHORUS 2021-01-27 Richey Mcgrath, Kasia [facility] 03:31:00 [facility] HEPATIC FUNCTION PANEL 2021-01-[address] [facility] 03:31:00 [facility] BLOOD GAS, ARTERIAL 2021-01-27 Beram, Joyced [facility] 03:30:00 [facility] XR CHEST 1 VIEW PORTABLE / 2021-01-[address] [facility] 00:45:00 [facility] DC INSERT 2021-01-[address] [facility] CATH,ART,PERCUT,SHORTTERM 23:51:37 [facility] PO[facility]UCOSE METER 2021-01-26 Valluri, Sri Nixon [facility] 22:02:00 [facility] PHOSPHORUS 2021-01-26 Neagra, Christopher [facility] 20:28:00 [facility] CALCIUM, IONIZED 2021-01-26 Beram, Jihad [facility] 20:28:00 [facility] MAGNESIUM 2021-01-26 Beram, Jihad [facility] 20:28:00 [facility] BASIC METABOLIC PANEL (7) 2021-01-[address] [facility] 20:28:00 [facility] POTASSIUM 2021-01-26 Valluri, Sri Nixon [facility] 16:49:00 [facility] POCT-GLUCOSE METER 2021-01-26 Valluri, Sri Nixon [facility] 16:41:00 [facility] POTASSIUM 2021-01-26 Valluri, Sri Nixon [facility] 12:13:00 [facility] POCT-GLUCOSE METER 2021-01-26 Valluri, Sri Nixon [facility] 12:06:00 [facility] PREPARE RBC 2021-01-[address] [facility] 08:26:00 [facility] PREPARE RBC 2021-01-[address] [facility] 08:24:00 [facility] MAGNESIUM 2021-01-26 Neagra, Christopher [facility] 08:13:00 [facility] PHOSPHORUS 2021-01-26 Neagra, Christopher [facility] 08:13:00 [facility] POTASSIUM 2021-01-26 Valluri, Sri Nixon [facility] 08:13:00 [facility] POCT-GLUCOSE METER 2021-01-26 Valluri, Sri Nixon [facility] 08:13:00 [facility] BLOOD GAS, ARTERIAL 2021-01-26 Beram, Jihad [facility] 06:16:00 [facility] BLOOD GAS, ARTERIAL 2021-01-26 Beram, Jihad [facility] 04:48:00 [facility] BLOOD GAS, ARTERIAL 2021-01-26 Beram, Jihad [facility] 04:04:00 [facility] APTT 2021-01-26 Beram, Jihad [facility] 04:02:00 [facility] CALCIUM, IONIZED 2021-01-26 Beram, Jihad [facility] 04:02:00 [facility] LACTIC ACID, ARTERIAL 2021-01-26 Richey Mcgrath, [facility] 04:02:00 [facility] OXYGEN SATURATION, MEASURED 2021-01-26 Richey Mcgrath, Kasia [facility] 04:02:00 [facility] CBC W/PLT COUNT & AUTO 2021-01-26 Richey Mcgrath, Kasia [facility] 04:02:00 [facility] MAGNESIUM 2021-01-26 Richey McgrathLisbet hermosilloa [facility] 04:02:00 [facility] PHOSPHORUS 2021-01-26 [facility] Mcgrath, Kasia [facility] 04:02:00 [facility] PROTHROMBIN TIME/INR 2021-01-26 Richey Mcgrath, Kasia [facility] 04:02:00 [facility] DIGOXIN LEVEL 2021-01-[address] [facility] 04:02:00 [facility] BASIC METABOLIC PANEL (7) 2021-01-[address] [facility] 04:02:00 [facility] XR CHEST 1 VIEW PORTABLE / 2021-01-[address] [facility] 00:20:00 [facility] POCT-GLUCOSE METER 2021-01-25 Valluri, Maura Lillyk [facility] 21:59:00 [facility] BASIC METABOLIC PANEL (7) 2021-01-[address] [facility] 20:28:00 [facility] MAGNESIUM 2021-01-25 Beram, Luz [facility] 20:28:00 [facility] POCT-GLUCOSE METER 2021-01-25 Valluri, Sri Nixon [facility] 18:07:00 [facility] XR ABDOMEN / KUB 1 VIEW 2021-01-[address] [facility] 18:01:00 [facility] POTASSIUM 2021-01-25 Neagra, Christopher [facility] 16:07:00 [facility] PHOSPHORUS 2021-01-25 Beram, Jihad [facility] 16:07:00 [facility] MAGNESIUM 2021-01-25 Neagra, Christopher [facility] 16:07:00 [facility] SODIUM 2021-01-25 Neagra, Christopher [facility] 16:07:00 [facility] BLOOD GAS, ARTERIAL 2021-01-25 Beram, Jihad [facility] 16:07:00 [facility] CBC W/PLT COUNT & AUTO 2021-01-[address] [facility] DIFFERENTIAL 13:55:00 [facility] POCT-GLUCOSE METER 2021-01-[address] [facility] 13:20:00 [facility] PHOSPHORUS 2021-01-25 Beram, Jihad [facility] 11:42:00 [facility] BASIC METABOLIC PANEL (7) 2021-01-25 Neagra, Vasile [facility] 11:42:00 [facility] MAGNESIUM 2021-01-25 Neagra, Christopher [facility] 11:42:00 [facility] CALCIUM, IONIZED 2021-01-25 Neagra, Christopher [facility] 11:42:00 [facility] POCT-GLUCOSE METER 2021-01-25 Valluri, Maura Lillyk [facility] 08:07:00 [facility] BLOOD GAS, ARTERIAL 2021-01-25 Beram, Jihad [facility] 03:29:00 [facility] APTT 2021-01-25 Beram, Jihad [facility] 03:28:00 [facility] CALCIUM, IONIZED 2021-01-25 Beram, Jihad [facility] 03:28:00 [facility] LACTIC ACID, ARTERIAL 2021-01-25 Kaiden Mcgrath Kasia [facility] 03:28:00 [facility] OXYGEN SATURATION, MEASURED 2021-01-25 Kaiden Mcgrath Kasia [facility] 03:28:00 [facility] CBC W/PLT COUNT & AUTO 2021-01-[address] [facility] DIFFERENTIAL 03:28:00 [facility] BASIC METABOLIC PANEL (7) 2021-01-[address] [facility] 03:28:00 [facility] MAGNESIUM 2021-01-[address] [facility] 03:28:00 [facility] PHOSPHORUS 2021-01-25 Richeybulmaro Mcgrath, Kasia [facility] 03:28:00 [facility] PROTHROMBIN TIME/INR [facility]-01-[facility] 03:28:00 [facility] XR CHEST 1 VIEW PORTABLE / 2021-01-[address] [facility] 02:31:00 [facility] POCT-GLUCOSE METER 2021-01-[address] [facility] 00:13:00 [facility] PREPARE LEUKO-REDUCED 2021-01-[address] [facility] 23:55:00 [facility] PREPARE PLASMA 2021-01-24 Jeanette, Zaira [facility] 23:55:00 [facility] PREPARE PLATELETS 2021-01-[address] [facility] 23:55:00 [facility] PREPARE PLASMA 2021-01-[address] [facility] 23:54:00 [facility] PREPARE RBC 2021-01-[address] [facility] 23:54:00 [facility] PREPARE LEUKO-REDUCED 2021-01-[address] [facility] 23:54:00 [facility] SODIUM NA-STAT LAB 2021-01-[address] [facility] 21:42:00 [facility] POTASSIUM-STAT LAB 2021-01-[address] [facility] 21:42:00 [facility] GLUCOSE-STAT LAB 2021-01-[address] [facility] 21:42:00 [facility] HGB/HCT (H&H) - STAT LAB 2021-01-[address] [facility] 21:42:00 [facility] BLOOD GAS, ARTERIAL 2021-01-[address] [facility] 21:41:00 [facility] PHOSPHORUS 2021-01-24 Beram, Jihad [facility] 18:16:00 [facility] BASIC METABOLIC PANEL (7) 2021-01-[address] [facility] 18:16:00 [facility] MAGNESIUM 2021-01-24 Beram, Jihad [facility] 18:16:00 [facility] CBC W/PLT COUNT & AUTO 2021-01-[address] [facility] DIFFERENTIAL 12:21:00 [facility] PHOSPHORUS 2021-01-24 Beram, Jihad [facility] 10:25:00 [facility] POTASSIUM 2021-01-24 Beram, Jihad [facility] 10:25:00 [facility] MAGNESIUM 2021-01-24 Beram, Jihad [facility] 10:25:00 [facility] BLOOD GAS, ARTERIAL 2021-01-24 Beram, Jihad [facility] 10:25:00 [facility] POCT-GLUCOSE METER 2021-01-[address] [facility] 08:56:00 [facility] APTT 2021-01-24 Beram, Jihad [facility] 03:18:00 [facility] BLOOD GAS, ARTERIAL 2021-01-24 Beram, Jihad [facility] 03:18:00 [facility] CALCIUM, IONIZED 2021-01-24 Beram, Jihad [facility] 03:18:00 [facility] LACTIC ACID, ARTERIAL 2021-01-24 Richey Mcgrath, Kasia [facility] 03:18:00 [facility] OXYGEN SATURATION, MEASURED 2021-01-24 Richey Mcgrath, Kasia [facility] 03:18:00 [facility] BASIC METABOLIC PANEL (7) 2021-01-[address] [facility] 03:18:00 [facility] MAGNESIUM 2021-01-24 Richey Mcgrath, Kasia [facility] 03:18:00 [facility] PHOSPHORUS 2021-01-24 Richey Mcgrath, Kasia [facility] 03:18:00 [facility] PROTHROMBIN TIME/INR 2021-01-[address] [facility] 03:18:00 [facility] CBC W/PLT COUNT & AUTO 2021-01-24 Mikaela, Useibrahiman [facility] DIFFER[facility] 03:18:00 [facility] HEPATIC FUNCTION PANEL 2021-01-[address] [facility] 03:18:00 [facility] XR CHEST 1 VIEW PORTABLE / 2021-01-[address] [facility] 01:39:00 [facility] CBC W/PLT COUNT & AUTO 2021-01-24 Mikaela, Cami [facility] DIFFERENTIAL 00:31:00 [facility] BLOOD GAS, ARTERIAL 2021-01-24 Sheridan, Uselyn [facility] 00:31:00 [facility] LACTIC ACID, ARTERIAL 2021-01-24 Mikaela, Cami [facility] 00:31:00 [facility] PREPARE LEUKO-REDUCED RBC 2021-01-23 Elin Vasquez [facility] 23:54:00 [facility] PREPARE RBC 2021-01-[address] [facility] 23:54:00 [facility] TRANSFUSE LEUKO-REDUCED RED 2021-01-[address] [facility] BLOOD CELLS 23:42:34 [facility] POCT-GLUCOSE METER 2021-01-[address] [facility] 23:10:00 [facility] TRANSFUSE PLASMA 2021-01-[address] [facility] 21:55:06 [facility] BASIC METABOLIC PANEL (7) 2021-01-[address] [facility] 21:26:00 [facility] PROTHROMBIN TIME/INR 2021-01-[address] [facility] 21:26:00 [facility] APTT 2021-01-[address] [facility] 21:26:00 [facility] FIBRINOGEN 2021-01-[address] [facility] 21:26:00 [facility] MAGNESIUM 2021-01-23 Sheridan, Uselyn [facility] 21:26:00 [facility] PHOSPHORUS 2021-01-23 Sheridan, Uselyn [facility] 21:26:00 [facility] CALCIUM, IONIZED 2021-01-23 Sheridan, Uselyn [facility] 21:26:00 [facility] CBC W/PLT COUNT & AUTO 2021-01-23 Sheridan, Uselyn [facility] 21:26:00 [facility] BLOOD GAS, ARTERIAL 2021-01-23 Sheridan, Useibrahiman [facility] 21:26:00 [facility] TRANSFUSE LEUKO-REDUCED 2021-01-[address] [facility] 20:46:34 [facility] TRANSFUSE LEUKO-REDUCED RED 2021-01-[address] [facility] BLOOD CELLS 19:36:37 [facility] POCT-GLUCOSE METER 2021-01-[address] [facility] 18:47:00 [facility] CBC W/PLT COUNT & AUTO 2021-01-[address] [facility] DIFFERENTIAL 17:47:00 [facility] OXYGEN SATURATION, MEASURED 2021-01-[address] [facility] 17:43:00 [facility] XR CHEST 1 VIEW PORTABLE / 2021-01-[address] [facility] 15:54:00 [facility] BLOOD GAS, ARTERIAL 2021-01-[address] [facility] 15:50:00 [facility] CBC W/PLT COUNT & AUTO 2021-01-[address] [facility] DIFFERENTIAL 15:48:00 [facility] COMPREHENSIVE METABOLIC 2021-01-[address] [facility] PANEL 15:48:00 [facility] MAGNESIUM 2021-01-[address] [facility] 15:48:00 [facility] PHOSPHORUS 2021-01-23 Kaiden Pickarda, Kasia [facility] 15:48:00 [facility] LACTIC ACID, ARTERIAL 2021-01-23 Kasia Rubio [facility] 15:48:00 [facility] BLOOD GAS, ARTERIAL 2021-01-23 [facility] Alcides, Kasia [facility] 15:48:00 [facility] PROTHROMBIN TIME/INR 2021-01-23 [facility] Alcides, Kasia [facility] 15:48:00 [facility] APTT 2021-01-23 [facility] Alcides, Kasia [facility] 15:48:00 [facility] FIBRINOGEN 2021-01-23 [facility] Mcgrath, Kasia [facility] 15:48:00 [facility] SODIUM NA-STAT LAB 2021-01-23 [facility], Kasia [facility] 15:48:00 [facility] POTASSIUM-STAT LAB 2021-01-23 [facility], Kasia [facility] 15:48:00 [facility] GLUCOSE-STAT LAB 2021-01-23 [facility], Kasia [facility] 15:48:00 [facility] HGB/HCT (H&H) - STAT LAB 2021-01-23 [facility] Mcgrath, Kasia [facility] 15:48:00 [facility] TRANSFUSE PLASMA 2021-01-23 Royalty, Alyce [facility] 14:22:50 [facility] TRANSFUSE LEUKO-REDUCED 2021-01-23 ty, Alyce [facility] 14:17:35 [facility] TRANSFUSE PLASMA 2021-01-23 ty, Alyce [facility] 14:16:35 [facility] BLOOD GAS, ARTERIAL 2021-01-23 Royalty, Alyce [facility] 13:33:39 [facility] CALCIUM, IONIZED 2021-01-23 Royalty, Alyce [facility] 13:33:39 [facility] APTT 2021-01-23 Royalty, Alyce [facility] 13:33:39 [facility] PROTHROMBIN TIME/INR 2021-01-23 Royalty, Alyce [facility] 13:33:39 [facility] FIBRINOGEN 2021-01-23 Royalty, Alyce [facility] 13:33:39 [facility] PLATELET COUNT 2021-01-[address] [facility] 13:33:39 [facility] SODIUM NA-STAT LAB 2021-01-[address] [facility] 13:33:39 [facility] POTASSIUM-STAT LAB 2021-01-[address] [facility] 13:33:39 [facility] GLUCOSE-STAT LAB 2021-01-[address] [facility] 13:33:39 [facility] HGB/HCT (H&H) - STAT LAB 2021-01-23 Alyce Mims [facility] 13:33:39 [facility] TRANSFUSE PLASMA 2021-01-[address] [facility] 13:18:07 [facility] TRANSFUSE LEUKO-REDUCED 2021-01-[address] [facility] 13:14:42 [facility] EXPLORATION,MEDIASTINAL 2021-01-[address] [facility] 12:39:00 [facility] TRANSFUSE LEUKO-REDUCED 2021-01-[address] [facility] 11:04:16 [facility] POCT-GLUCOSE METER 2021-01-[address] [facility] 09:50:00 [facility] TRANSFUSE PLASMA 2021-01-[address] [facility] 09:36:12 [facility] PHOSPHORUS 2021-01-[address] [facility] 09:32:00 [facility] CBC (HEMOGRAM ONLY) 2021-01-[address] [facility] 09:32:00 [facility] MAGNESIUM 2021-01-[address] [facility] 09:32:00 [facility] LACTIC ACID, ARTERIAL 2021-01-[address] [facility] 04:04:00 [facility] XR CHEST 1 VIEW PORTABLE / 2021-01-23 Leonidas Ocampo [facility] 03:53:00 [facility] BLOOD GAS, ARTERIAL 2021-01-[address] [facility] 03:49:00 [facility] OXYGEN SATURATION, MEASURED 2021-01-[address] [facility] 03:49:00 [facility] APTT 2021-01-23 Beram, Jihad [facility] 03:48:00 [facility] CBC W/PLT COUNT & AUTO 2021-01-[address] [facility] DIFFERENTIAL 03:48:00 [facility] PROTHROMBIN TIME/INR 2021-01-[address] [facility] 03:48:00 [facility] MAGNESIUM 2021-01-23 Ramos, Jes [facility] 03:48:00 [facility] PHOSPHORUS 2021-01-23 Ramos, Jes [facility] 03:48:00 [facility] CALCIUM, IONIZED 2021-01-23 Beram, Jihad [facility] 03:48:00 [facility] BASIC METABOLIC PANEL (7) 2021-01-23 Richard Jes [facility] 03:48:00 [facility] (CELLAVISION MANUAL DIFF) 2021-01-23 Richard Jes [facility] 03:48:00 [facility] TRANSFUSE LEUKO-REDUCED RED 2021-01-[address] [facility] BLOOD CELLS 01:18:21 [facility] LACTIC ACID, ARTERIAL 2021-01-[address] [facility] 00:14:00 [facility] MAGNESIUM 2021-01-23 Beram, Jihad [facility] 00:14:00 [facility] CALCIUM, IONIZED 2021-01-23 Beram, Jihad [facility] 00:14:00 [facility] BLOOD GAS, ARTERIAL 2021-01-23 Beram, Jihad [facility] 00:14:00 [facility] BASIC METABOLIC PANEL (7) 2021-01-23 Nanette Ramosbeth [facility] 00:14:00 [facility] TRANSFUSE LEUKO-REDUCED RED 2021-01-[address] [facility] BLOOD CELLS 21:28:48 [facility] BLOOD GAS, ARTERIAL 2021-01-22 Beram, Jihad [facility] 20:16:00 [facility] CBC (HEMOGRAM ONLY) 2021-01-[address] [facility] 20:15:00 [facility] LACTIC ACID, ARTERIAL 2021-01-[address] [facility] 20:14:00 [facility] OXYGEN SATURATION, MEASURED 2021-01-[address] [facility] 20:14:00 [facility] SODIUM NA-STAT LAB 2021-01-[address] [facility] 20:14:00 [facility] POTASSIUM-STAT LAB 2021-01-[address] [facility] 20:14:00 [facility] GLUCOSE-STAT LAB 2021-01-[address] [facility] 20:14:00 [facility] HGB/HCT (H&H) - STAT LAB 2021-01-[address] [facility] 20:14:00 [facility] PHOSPHORUS 2021-01-[address] [facility] 20:14:00 [facility] PROTHROMBIN TIME/INR 2021-01-[address] [facility] 20:14:00 [facility] APTT 2021-01-[address] [facility] 20:14:00 [facility] FIBRINOGEN 2021-01-[address] [facility] 20:14:00 [facility] TRANSFUSE LEUKO-REDUCED RED 2021-01-[address] [facility] BLOOD CELLS 19:33:[address] [facility] [address] CHEST WITH IV CONTRAST 2021-01-22 [facility] 19:16:[facility] CT ABDOMEN/PELVIS WITH IV 2021-01-22 Elin Vasquez [facility] CONTR[facility] 19:16:00 [facility] BLOOD GAS, ARTERIAL 2021-01-[address] [facility] 18:20:00 [facility] XR CHEST 1 VIEW PORTABLE / 2021-01-22 Elin Vasquez [facility] 17:57:00 [facility] POCT-GLUCOSE METER 2021-01-[address] [facility] 16:31:00 [facility] PREPARE PLASMA 2021-01-[address] [facility] 14:56:00 [facility] BLOOD GAS, ARTERIAL 2021-01-[address] [facility] 14:41:00 [facility] POCT-GLUCOSE METER 2021-01-[address] [facility] 14:21:00 [facility] OXYGEN SATURATION, MEASURED 2021-01-[address] [facility] 13:58:00 [facility] POCT-GLUCOSE METER 2021-01-[address] [facility] 13:57:00 [facility] SODIUM NA-STAT LAB 2021-01-[address] [facility] 13:56:00 [facility] POTASSIUM-STAT LAB 2021-01-[address] [facility] 13:56:00 [facility] GLUCOSE-STAT LAB 2021-01-[address] [facility] 13:56:00 [facility] HGB/HCT (H&H) - STAT LAB 2021-01-[address] [facility] 13:56:00 [facility] CALCIUM, IONIZED 2021-01-[address] [facility] 13:56:00 [facility] CBC W/PLT COUNT & AUTO 2021-01-22 [facility]quez [facility] 13:56:00 [facility] BLOOD GAS, ARTERIAL 2021-01-[address] [facility] 13:56:00 [facility] (CELLAVISION MANUAL DIFF) 2021-01-22 [facility]quez [facility] 13:56:00 [facility] LACTIC ACID, ARTERIAL 2021-01-22 Elin Vasquez [facility] 13:55:00 [facility] BASIC METABOLIC PANEL (7) 2021-01-22 [facility]quez [facility] 13:55:00 [facility] MAGNESIUM 2021-01-[address] [facility] 13:55:00 [facility] PHOSPHORUS 2021-01-[address] [facility] 13:55:00 [facility] PROTHROMBIN TIME/INR 2021-01-[address] [facility] 13:54:00 [facility] APTT 2021-01-[address] [facility] 13:54:00 [facility] FIBRINOGEN 2021-01-[address] [facility] 13:54:00 [facility] POCT-GLUCOSE METER 2021-01-22 [facility] 13:23:00 [facility] BLOOD GAS, ARTERIAL 2021-01-[address] [facility] 12:04:00 [facility] POCT-GLUCOSE METER 2021-01-22 [facility], Ca Irizarry [facility] 11:45:00 [facility] TRANSFUSE LEUKO-REDUCED RED 2021-01-[address] [facility] BLOOD CELLS 11:30:51 [facility] POCT-GLUCOSE METER 2021-01-22 [facility], [place] [facility] 11:19:00 [facility] POCT-GLUCOSE METER 2021-01-22 [facility], [place] [facility] 11:06:00 [facility] POCT-GLUCOSE METER 2021-01-22 [facility], [place] [facility] 10:55:00 [facility] POCT-GLUCOSE METER 2021-01-22 [facility], [place] [facility] 10:48:00 [facility] 2D ECHO W/ DOPPLER 2021-01-[address] [facility] (CW/PW/COLOR) 10:39:48 [facility] LACTIC ACID, ARTERIAL 2021-01-22 [facility]quez [facility] 10:36[facility]00 [facility] OXYGEN SATURATION, MEASURED 2021-01-[address] [facility] 10:36:00 [facility] SODIUM NA-STAT LAB 2021-01-[address] [facility] 10:36:00 [facility] POTASSIUM-STAT LAB 2021-01-[address] [facility] 10:36:00 [facility] GLUCOSE-STAT LAB 2021-01-[address] [facility] 10:36:00 [facility] HGB/HCT (H&H) - STAT LAB 2021-01-[address] [facility] 10:36:00 [facility] TRANSFUSE LEUKO-REDUCED RED 2021-01-[address] [facility] BLOOD CELLS 09:58:57 [facility] CONTINUOUS VENOVENOUS 2021-01-[address] [facility] HEMODIALYSIS 09:18:10 [facility] APTT 2021-01-[address] [facility] 09:13:00 [facility] XR CHEST 1 VIEW PORTABLE / 2021-01-[address] [facility] B[facility] 08:57:00 [facility] LACTIC ACID, ARTERIAL 2021-01-22 [facility]quez [facility] 08:09:00 [facility] OXYGEN SATURATION, MEASURED 2021-01-[address] [facility] 08:09:00 [facility] SODIUM NA-STAT LAB 2021-01-22 Vasquez, Elin [facility] 08:09:00 [facility] POTASSIUM-STAT LAB 2021-01-22 Vasquez, Elin [facility] 08:09:00 [facility] GLUCOSE-STAT LAB 2021-01-22 Pedro, Elin [facility] 08:09:00 [facility] HGB/HCT (H&H) - STAT LAB 2021-01-[address] [facility] 08:09:00 [facility] BLOOD GAS, ARTERIAL 2021-01-22 [facility]Elin [facility] 08:09:00 [facility] APTT 2021-01-[address] [facility] 07:42:00 [facility] XR CHEST 1 VIEW PORTABLE / 2021-01-[address] [facility] BEDSIDE 07:08:00 [facility] HEMOGLOBIN AND HEMATOCRIT 2021-01-22 Jes [facility] 06:37:00 [facility] BASIC METABOLIC PANEL (7) 2021-01-22 Jes Ramos [facility] 06:35:00 [facility] CALCIUM, IONIZED 2021-01-[address] [facility] 06:35:00 [facility] PROTHROMBIN TIME/INR 2021-01-[address] [facility] 06:35:00 [facility] APTT 2021-01-[address] [facility] 06:35:00 [facility] FIBRINOGEN 2021-01-[address] [facility] 06:35:00 [facility] B-TYPE NATRIURETIC FACTOR 2021-01-22 Jes [facility] (BNP[facility] 06:35:00 [facility] HEPATIC FUNCTION PANEL 2021-01-22 Ramos, Jes [facility] 06:35:00 [facility] MAGNESIUM 2021-01-22 Ramos, Jes [facility] 06:35:00 [facility] PHOSPHORUS 2021-01-22 Ramos, Jes [facility] 06:35:00 [facility] LACTIC ACID, ARTERIAL 2021-01-22 Ramos, Jes [facility] 06:31:00 [facility] BLOOD GAS, ARTERIAL 2021-01-22 Ramos, Jes [facility] 06:31:00 [facility] OXYGEN SATURATION, MEASURED 2021-01-22 Ramos, Jes [facility] 06:30:00 [facility] TYPE AND SCREEN, AUTOMATED 2021-01-22 Ramos, Jes [facility] 04:55:00 [facility] BLOOD GAS, ARTERIAL 2021-01-22 Beram, Jihad [facility] 02:28:00 [facility] CBC W/PLT COUNT & AUTO 2021-01-22 Ramos, Jes [facility] DIFFERENTIAL 02:28:00 [facility] PROTHROMBIN TIME/INR 2021-01-22 Richard, Jes [facility] 02:28:00 [facility] MAGNESIUM 2021-01-22 Ramos, Jes [facility] 02:28:00 [facility] PHOSPHORUS 2021-01-22 Ramos, Jes [facility] 02:28:00 [facility] CALCIUM, IONIZED 2021-01-22 Bob, Jihad [facility] 02:28:00 [facility] LACTIC ACID, ARTERIAL 2021-01-22 Ramos, Jes [facility] 02:28:00 [facility] BASIC METABOLIC PANEL (7) 2021-01-22 Ramos, Jes [facility] 02:28:00 [facility] OXYGEN SATURATION, MEASURED 2021-01-22 Ramos, Jes [facility] 02:28:00 [facility] XR CHEST 1 VIEW PORTABLE / 2021-01-22 Leonidas Ocampo [facility] 01:25:00 [facility] APTT 2021-01-[address] [facility] 01:11:00 [facility] PREPARE LEUKO-REDUCED RBC 2021-01-21 Jes Ramos [facility] 23:54:00 [facility] HEMOGLOBIN AND HEMATOCRIT 2021-01-21 Jes Ramos [facility] 22:41:00 [facility] APTT 2021-01-[address] [facility] 22:41:00 [facility] ECG 12-LEAD 2021-01-21 Unknown, Hl7 Doctor [facility] 22:11:18 [facility] POCT-GLUCOSE METER 2021-01-21 Waklu[place], Ca T. [facility] 21:40:00 [facility] BASIC METABOLIC PANEL (7) 2021-01-21 Omi, Omar [facility] 21:32:00 [facility] PHOSPHORUS 2021-01-21 Omi, Omar [facility] 21:32:00 [facility] MAGNESIUM 2021-01-21 Omi, Omar [facility] 21:32:00 [facility] BLOOD GAS, ARTERIAL 2021-01-[address] [facility] 18:59:00 [facility] POCT-GLUCOSE METER 2021-01-21 Kendrickkluis, Ca T. [facility] 18:23:00 [facility] PT/APTT 2021-01-21 Alexa, Alex [facility] 17:17:00 [facility] POCT-GLUCOSE METER 2021-01-21 Kendrickkandrya, Ca T. [facility] 12:07:00 [facility] BLOOD GAS, ARTERIAL 2021-01-[address] [facility] 11:50:00 [facility] PT/APTT 2021-01-21 Alexa, Alex [facility] 11:49:[address] [facility] MAGNESIUM 2021-01-[address] [facility] 09:06:00 [facility] PHOSPHORUS 2021-01-21 Jarod, Jingyin [facility] 09:06:00 [facility] POTASSIUM 2021-01-21 Jarod, Jingyin [facility] 09:06:00 [facility] POCT-GLUCOSE METER 2021-01-21 [place], Ca T. [facility] 08:39:00 [facility] PH, ARTERIAL 2021-01-21 Jarod, Jingyin [facility] 08:18:00 [facility] XR CHEST 1 VIEW PORTABLE / 2021-01-21 Leonidas [facility]campo [facility] 03:14:00 [facility] BLOOD GAS, ARTERIAL 2021-01-21 Beram, Jihad [facility] 03:10:00 [facility] CALCIUM, IONIZED 2021-01-[address] [facility] 03:10:00 [facility] CBC W/PLT COUNT & AUTO 2021-01-[address] [facility] DIFFERENTIAL 03:09:00 [facility] MAGNESIUM 2021-01-[address] [facility] 03:09:00 [facility] APTT 2021-01-[address] [facility] 03:09:00 [facility] HEPATIC FUNCTION PANEL 2021-01-[address] [facility] 03:09:00 [facility] PROTHROMBIN TIME/INR 2021-01-[address] [facility] 03:09:00 [facility] BASIC METABOLIC PANEL (7) 2021-01-[address] [facility] 03:09:00 [facility] PREPARE LEUKO-REDUCED RBC 2021-01-[address] [facility] 23:54:00 [facility] POCT-GLUCOSE METER 2021-01-[address] [facility] 23:46:00 [facility] POTASSIUM 2021-01-20 Jarod, Jingyin [facility] 21:38:00 [facility] MAGNESIUM 2021-01-20 Jarod, Jingyin [facility] 21:38:00 [facility] PH, ARTERIAL 2021-01-20 Jarod, Jingyin [facility] 21:38:00 [facility] PHOSPHORUS 2021-01-20 Jarod, Jingyin [facility] 21:38:00 [facility] POTASSIUM 2021-01-20 Jarod, Jingyin [facility] 18:19:00 [facility] POCT-GLUCOSE METER 2021-01-[address] [facility] 18:08:00 [facility] IR TUNNELED CATHETER 2021-01-[address] [facility] INSERTION 17:08:00 [facility] TRANSFUSE LEUKO-REDUCED RED 2021-01-[address] [facility] BLOOD CELLS 13:47:22 [facility] POTASSIUM 2021-01-20 Jarod, Jingyin [facility] 13:16:00 [facility] POCT-GLUCOSE METER 2021-01-[address] [facility] 11:45:00 [facility] APTT 2021-01-20 Beram, Jihad [facility] 09:08:00 [facility] MAGNESIUM 2021-01-20 Jarod, Jingyin [facility] 09:07:00 [facility] PH, ARTERIAL 2021-01-20 Jarod, Jingyin [facility] 09:07:00 [facility] PHOSPHORUS 2021-01-20 Jarod, Jingyin [facility] 09:07:00 [facility] BLOOD GAS, ARTERIAL 2021-01-20 Beram, Jihad [facility] 03:49:00 [facility] CBC W/PLT COUNT & AUTO 2021-01-[address] [facility] DIFFERENTIAL 03:48:00 [facility] MAGNESIUM 2021-01-[address] [facility] 03:48:00 [facility] CALCIUM, IONIZED 2021-01-[address] [facility] 03:48:00 [facility] PROTHROMBIN TIME/INR 2021-01-[address] [facility] 03:48:00 [facility] BASIC METABOLIC PANEL (7) 2021-01-20 Jarod, Jingyin [facility] 03:48:00 [facility] HEPATIC FUNCTION PANEL 2021-01-[address] [facility] 03:48:00 [facility] APTT 2021-01-20 Bob, Jihad [facility] 02:04:00 [facility] XR CHEST 1 VIEW PORTABLE / 2021-01-20 Leonidas Ocampo [facility] 01:18:00 [facility] POTASSIUM 2021-01-20 Jaord, Jingyin [facility] 00:38:00 [facility] POCT-GLUCOSE METER 2021-01-20 [place], Ca T[facility] 00:20:00 [facility] HEMOGLOBIN AND HEMATOCRIT 2021-01-20 Jes Ramos [facility] 00:19:00 [facility] TRANSFUSE LEUKO-REDUCED RED 2021-01-[address] [facility] BLOOD CELLS 22:29:21 [facility] PH, ARTERIAL 2021-01-19 Jarod, Jingyin [facility] 20:23:00 [facility] POTASSIUM 2021-01-19 Jarod, Jingyin [facility] 20:19:00 [facility] MAGNESIUM 2021-01-19 Jarod, Jingyin [facility] 20:19:00 [facility] PHOSPHORUS 2021-01-19 Jarod, Jingyin [facility] 20:19:00 [facility] APTT 2021-01-[address] [facility] 20:19:00 [facility] POTASSIUM 2021-01-19 Jarod, Jingyin [facility] 17:12:00 [facility] VANCOMYCIN LEVEL, TROUGH 2021-01-[address] [facility] 17:12:00 [facility] CBC W/PLT COUNT & AUTO 2021-01-[address] [facility] DIFFERENTIAL 17:12:[address] [facility] POCT-GLUCOSE METER 2021-01-[address] [facility] 11:39:00 [facility] POTASSIUM 2021-01-19 Jarod, Jingyin [facility] 11:24:00 [facility] PT/APTT 2021-01-[address] [facility] 11:24:[address] [facility] PHOSPHORUS 2021-01-19 Jarod, Jingyin [facility] 08:49:00 [facility] BLOOD GAS, ARTERIAL 2021-01-[address] [facility] 08:49:00 [facility] POCT-GLUCOSE METER 2021-01-[address] [facility] 06:23:00 [facility] HEMOGLOBIN AND HEMATOCRIT 2021-01-[address] [facility] 05:41:00 [facility] CBC W/PLT COUNT & AUTO 2021-01-[address] [facility] DIFFERENTIAL 05:41:00 [facility] BLOOD GAS, ARTERIAL 2021-01-[address] [facility] 03:47:00 [facility] CBC W/PLT COUNT & AUTO 2021-01-[address] [facility] DIFFERENTIAL 03:46:00 [facility] MAGNESIUM 2021-01-[address] [facility] 03:46:00 [facility] APTT 2021-01-[address] [facility] 03:46:00 [facility] COMPREHENSIVE METABOLIC 2021-01-[address] [facility] PANEL 03:46:00 [facility] CALCIUM, IONIZED 2021-01-[address] [facility] 03:46:00 [facility] HEPATIC FUNCTION PANEL 2021-01-[address] [facility] 03:46:00 [facility] PROTHROMBIN TIME/INR 2021-01-[address] [facility] 03:46:00 [facility] (CELLAVISION MANUAL DIFF) 2021-01-[address] [facility] 03:46:00 [facility] XR CHEST 1 VIEW PORTABLE / 2021-01-19 Leonidas Ocampo [facility] 01:50:00 [facility] XR ABDOMEN / KUB 1 VIEW 2021-01-[address] [facility] 01:50:00 [facility] POCT-GLUCOSE METER 2021-01-[address] [facility] 01:38:00 [facility] POCT-GLUCOSE METER 2021-01-[address] [facility] 00:22:00 [facility] PREPARE PLASMA 2021-01-[address] [facility] 23:55:00 [facility] PREPARE LEUKO-REDUCED RBC 2021-01-18 Elin Vasquez [facility] 23:55:00 [facility] POTASSIUM 2021-01-[address] [facility] 20:05:00 [facility] MAGNESIUM 2021-01-[address] [facility] 20:05:00 [facility] PH, ARTERIAL 2021-01-[address] [facility] 20:05:00 [facility] PHOSPHORUS 2021-01-[address] [facility] 20:05:00 [facility] HEMOGLOBIN AND HEMATOCRIT 2021-01-18 Jes [facility] 20:05[facility]00 [facility] POCT-GLUCOSE METER 2021-01-18 [place], Ca T[facility] 17:48:00 [facility] POTASSIUM 2021-01-18 Jarod, Jingyin [facility] 15:40:00 [facility] POTASSIUM 2021-01-18 Jarod, Jingyin [facility] 12:28:00 [facility] POCT-GLUCOSE METER 2021-01-18 [place], Ca T[facility] 12:28:00 [facility] XR CHEST 1 VIEW PORTABLE / 2021-01-18 Estefany [address]williams [facility] 08:24:00 [facility] POTASSIUM 2021-01-18 Jarod, Jingyin [facility] 08:09:00 [facility] MAGNESIUM 2021-01-[address] [facility] 08:09:00 [facility] PHOSPHORUS 2021-01-18 Jarod, Jingyin [facility] 08:09:00 [facility] HEMOGLOBIN AND HEMATOCRIT 2021-01-18 Jes Ramos [facility] 04:31:00 [facility] BLOOD GAS, ARTERIAL 2021-01-[address] [facility] 03:20:00 [facility] SARS-COV2/RT-PCR (HS & REF 2021-01-[address] [facility] LABS) 03:16:00 [facility] CBC W/PLT COUNT & AUTO 2021-01-[address] [facility] DIFFERENTIAL 03:13:00 [facility] MAGNESIUM 2021-01-[address] [facility] 03:13:00 [facility] APTT 2021-01-[address] [facility] 03:13:00 [facility] COMPREHENSIVE METABOLIC 2021-01-[address] [facility] PANEL 03:13:00 [facility] PROTHROMBIN TIME/INR 2021-01-[address] [facility] 03:13:00 [facility] LACTIC ACID, ARTERIAL 2021-01-[address] [facility] 03:13:00 [facility] POCT-GLUCOSE METER 2021-01-[address] [facility] 01:05:00 [facility] XR CHEST 1 VIEW PORTABLE / 2021-01-18 Leonidas Ocampo [facility] 00:21:00 [facility] PREPARE LEUKO-REDUCED RBC 2021-01-17 Jes Ramos [facility] 23:55:00 [facility] HEMOGLOBIN AND HEMATOCRIT 2021-01-17 Jes Ramos [facility] 19:55:00 [facility] POTASSIUM 2021-01-[address] [facility] 19:49:00 [facility] MAGNESIUM 2021-01-[address] [facility] 19:49:00 [facility] PH, ARTERIAL 2021-01-[address] [facility] 19:49:00 [facility] PHOSPHORUS 2021-01-[address] [facility] 19:49:00 [facility] TRANSFUSE LEUKO-REDUCED RED 2021-01-[address] [facility] BLOOD CELLS 19:14:33 [facility] POCT-GLUCOSE METER 2021-01-[address] [facility] 18:19:00 [facility] PROTHROMBIN TIME/INR 2021-01-[address] [facility] 14:41:00 [facility] APTT 2021-01-[address] [facility] 14:41:00 [facility] FIBRINOGEN 2021-01-[address] [facility] 14:41:00 [facility] PLATELET COUNT 2021-01-[address] [facility] 14:41:00 [facility] HEMOGLOBIN AND HEMATOCRIT 2021-01-[address] [facility] 14:06:00 [facility] POCT-GLUCOSE METER 2021-01-17 An Ca TJennifer [facility] 12:31:00 [facility] XR ABDOMEN / KUB 1 VIEW 2021-01-[address] [facility] 12:11:00 [facility] POTASSIUM 2021-01-[address] [facility] 11:43:00 [facility] TRANSFUSE PLASMA 2021-01-[address] [facility] 11:34:18 [facility] POTASSIUM 2021-01-17 Jarod, Mehdigytad [facility] 07:59:00 [facility] MAGNESIUM 2021-01-17 Jarod, Jingyin [facility] 07:59:00 [facility] PH, ARTERIAL 2021-01-17 Jarod, Jingyin [facility] 07:59:00 [facility] PHOSPHORUS 2021-01-17 Jarod, Jingyin [facility] 07:59:00 [facility] HEMOGLOBIN AND HEMATOCRIT 2021-01-[address] [facility] 07:59:00 [facility] LACTIC ACID, ARTERIAL 2021-01-[address] [facility] 04:08:00 [facility] CBC W/PLT COUNT & AUTO 2021-01-[address] [facility] DIFFERENTIAL 04:08:00 [facility] MAGNESIUM 2021-01-[address] [facility] 04:08:00 [facility] APTT 2021-01-[address] [facility] 04:08:00 [facility] COMPREHENSIVE METABOLIC 2021-01-[address] [facility] PANEL 04:08:00 [facility] HEPATIC FUNCTION PANEL 2021-01-[address] [facility] 04:08:00 [facility] BLOOD GAS, ARTERIAL 2021-01-17 Bob, Luz [facility] 04:08:00 [facility] PROTHROMBIN TIME/INR 2021-01-[address] [facility] 04:08:00 [facility] TYPE AND SCREEN, AUTOMATED 2021-01-[address] [facility] 04:08:00 [facility] (CELLAVISION MANUAL DIFF) 2021-01-[address] [facility] 04:08:00 [facility] TRANSFUSE LEUKO-REDUCED RED 2021-01-17 Jes Ramos [facility] BLOOD CELLS 03:55:34 [facility] POCT-GLUCOSE METER 2021-01-[address] [facility] 03:32:00 [facility] XR CHEST 1 VIEW PORTABLE / 2021-01-17 Leonidas Ocampo [facility] 00:37:00 [facility] POTASSIUM 2021-01-16 Jarod, Jingyin [facility] 23:11:00 [facility] PROTHROMBIN TIME/INR 2021-01-16 Ramos, Jes [facility] 23:11:00 [facility] APTT 2021-01-16 Ramos, Jes [facility] 23:11:00 [facility] FIBRINOGEN 2021-01-16 Ramos, Jes [facility] 23:11:00 [facility] POCT-GLUCOSE METER 2021-01-[address] [facility] 22:09:00 [facility] TRANSFUSE LEUKO-REDUCED RED 2021-01-[address] [facility] BLOOD CELLS 20:31:58 [facility] LACTIC ACID, ARTERIAL 2021-01-16 Kenny, Ara Magdaleno [facility] 20:29:00 [facility] POTASSIUM 2021-01-16 Jarod, Jingyin [facility] 20:29:00 [facility] MAGNESIUM 2021-01-16 Jarod, Jingyin [facility] 20:29:00 [facility] PH, ARTERIAL 2021-01-16 Jarod, Jingyin [facility] 20:29:00 [facility] PHOSPHORUS 2021-01-16 Jarod, Jingyin [facility] 20:29:00 [facility] PT/APTT 2021-01-16 Kenny, Ara Magdaleno [facility] 20:29:00 [facility] HEMOGLOBIN AND HEMATOCRIT 2021-01-16 Kenny, Ara Magdaleno [facility] 20:29:00 [facility] BLOOD CULTURE 2021-01-[address] [facility] 18:23:00 [facility] BLOOD CULTURE 2021-01-[address] [facility] 18:11:00 [facility] TRANSFUSE LEUKO-REDUCED RED 2021-01-[address] [facility] BLOOD CELLS 18:01:26 [facility] BLOOD GAS, ARTERIAL 2021-01-[address] [facility] 17:03:00 [facility] LACTIC ACID, ARTERIAL 2021-01-[address] [facility] 17:02:00 [facility] SPUTUM CULTURE + GRAM STAIN 2021-01-[address] [facility] 17:02:00 [facility] DC INSERT 2021-01-[address] [facility] CATH,ART,PERCUT,SHORTTERM 16:45:00 [facility] XR CHEST 1 VIEW PORTABLE / 2021-01-[address] [facility] BEDSIDE 16:18:00 [facility] PREPARE PLASMA 2021-01-16 Kenny, Ara Magdaleno [facility] 16:15:00 [facility] XR CHEST 1 VIEW PORTABLE / 2021-01-16 Demetrius Burgess [facility] 15:43:00 [facility] BLOOD GAS, ARTERIAL 2021-01-[address] [facility] 15:41:00 [facility] BLOOD GAS, ARTERIAL 2021-01-[address] [facility] 15:17:00 [facility] 2D ECHO W/ DOPPLER 2021-01-16 Jama Sheth [facility] (CW/PW/COLOR) 15:12:45 [facility] CBC W/PLT COUNT & AUTO 2021-01-16 Ara Cox [facility] DIFFERENTIAL 15:08:00 [facility] COMPREHENSIVE METABOLIC 2021-01-[address] [facility] PANEL 15:08:00 [facility] MAGNESIUM 2021-01-[address] [facility] 15:08:00 [facility] PHOSPHORUS 2021-01-[address] [facility] 15:08:00 [facility] CALCIUM, IONIZED 2021-01-16 Kenny, Ara Magdaleno [facility] 15:08:00 [facility] LACTIC ACID, ARTERIAL 2021-01-[address] [facility] 15:08:00 [facility] PT/APTT 2021-01-16 Kenny, Ara Magdaleno [facility] 15:08:00 [facility] TYPE AND SCREEN, AUTOMATED 2021-01-16 Kenny, Ara Magdaleno [facility] 15:08:00 [facility] (CELLAVISION MANUAL DIFF) 2021-01-[address] [facility] 15:08:00 [facility] POCT-BLOOD GASES, ARTERIAL 2021-01-16 Tyrel, Zakia [facility] 14:32:00 [facility] POCT-SODIUM 2021-01-16 Tyrel, Zakia [facility] 14:32:00 [facility] POCT-POTASSIUM 2021-01-16 Tyrel, Zakia [facility] 14:32:00 [facility] POCT-HEMOGLOBIN 2021-01-16 Tyrel, Zakia [facility] 14:32:00 [facility] POCT-HEMATOCRIT 2021-01-16 Tyrel, Zakia [facility] 14:32:00 [facility] POCT-GLUCOSE 2021-01-16 Tyrel, Zakia [facility] 14:32:00 [facility] POCT-GLUCOSE METER 2021-01-16 Tyrel, Zakia [facility] 14:21:00 [facility] POCT-BLOOD GASES, VENOUS 2021-01-16 Tyrel, Zakia [facility] 14:14:00 [facility] POCT-SODIUM 2021-01-16 Tyrel, Zakia [facility] 14:14:00 [facility] POCT-POTASSIUM 2021-01-16 Tyrel, Zakia [facility] 14:14:00 [facility] POCT-HEMOGLOBIN 2021-01-16 Tyrel, Zakia [facility] 14:14:00 [facility] POCT-HEMATOCRIT 2021-01-16 Tyrel, Zakia [facility] 14:14:00 [facility] POCT-GLUCOSE 2021-01-16 Tyrel, Zakia [facility] 14:14:00 [facility] ECG 12-LEAD 2021-01-16 Unknown, Hl7 Doctor [facility] 09:23:17 [facility] Center ECG 12-LEAD 2021-01-16 Unknown, Hl7 Doctor [facility] 09:22:46 [facility] APTT 2021-01-[address] [facility] 07:04:00 [facility] APTT 2021-01-[address] [facility] 04:47:00 [facility] PROTHROMBIN TIME/INR 2021-01-[address] [facility] 04:47:00 [facility] CBC W/PLT COUNT & AUTO 2021-01-[address] [facility] DIFFERENTIAL 03:24:00 [facility] MAGNESIUM 2021-01-[address] [facility] 03:24:00 [facility] BASIC METABOLIC PANEL (7) 2021-01-[address] [facility] 03:24:00 [facility] PHOSPHORUS 2021-01-16 Titi Ju [address]hy [facility] 03:24:00 [facility] (CELLAVISION MANUAL DIFF) 2021-01-[address] [facility] 03:24:00 [facility] XR CHEST 1 VIEW PORTABLE / 2021-01-16 Leonidas [facility]campo [facility] 00:28:00 [facility] POCT-GLUCOSE METER 2021-01-[address] [facility] 00:04:00 [facility] LIPID PANEL 2021-01-15 Titi, Ju Murphy [facility] 22:24:00 [facility] APTT 2021-01-[address] [facility] 22:24:00 [facility] POCT-GLUCOSE METER 2021-01-[address] [facility] 12:14:00 [facility] XR CHEST 1 VIEW PORTABLE / 2021-01-15 Leonidas [facility]campo [facility] B[facility] 09:00:00 [facility] APTT 2021-01-[address] [facility] 08:48:00 [facility] POCT-GLUCOSE METER 2021-01-[address] [facility] 08:12:00 [facility] CBC W/PLT COUNT & AUTO 2021-01-[address] [facility] DIFFERENTIAL 03:16:00 [facility] COMPREHENSIVE METABOLIC 2021-01-15 Taye Villatoro [facility] PANEL 03:16:00 [facility] MAGNESIUM 2021-01-[address] [facility] 03:16:00 [facility] PROTHROMBIN TIME/INR 2021-01-[address] [facility] 03:16:00 [facility] (CELLAVISION MANUAL DIFF) 2021-01-[address] [facility] 03:16:00 [facility] POCT-GLUCOSE METER 2021-01-[address] [facility] 21:14:00 [facility] PROTHROMBIN TIME/INR 2021-01-[address] [facility] 13:01:00 [facility] HEMODIALYSIS INPATIENT 2021-01-14 [facility] 12:00:15 [facility] ECG 12-LEAD 2021-01-14 Unknown, Hl[facility] Doctor [facility] 11:17:11 [facility] HEPATITIS B SURFACE ANTIGEN 2021-01-[address] [facility] 10:41:00 [facility] POCT-GLUCOSE METER 2021-01-[facility] 07:20[facility]00 [facility] POCT-GLUCOSE METER 2021-01-[address] [facility] 03:35:00 [facility] CBC W/PLT COUNT & AUTO 2021-01-14 Taye Villatoro [facility] DIFFERENTIAL 03:29:00 [facility] COMPREHENSIVE METABOLIC 2021-01-14 [facility]o [facility] PANEL 03:29:00 [facility] MAGNESIUM 2021-01-[address] [facility] 03:29:00 [facility] (CELLAVISION MANUAL DIFF) 2021-01-[address] [facility] 03:29:00 [facility] XR CHEST 1 VIEW PORTABLE / 2021-01-14 Benedicto Witt [facility] 01:35:00 [facility] XR CHEST 1 VIEW PORTABLE / 2021-01-13 Chapo Kennedy [facility]:12[facility]00 [facility] INSERT NON-TUNNEL CV CATH 2021-01-[address] [facility] 18:52:29 [facility] POCT-GLUCOSE METER 2021-01-[address] [facility] 17:25:00 [facility] BASIC METABOLIC PANEL (7) 2021-01-[address] [facility] 15:28:00 [facility] MAGNESIUM 2021-01-[address] [facility] 15:28:00 [facility] BLOOD GAS, ARTERIAL 2021-01-[address] [facility] 15:28:00 [facility] POTASSIUM 2021-01-[address] [facility] 12:29:00 [facility] BLOOD GAS, ARTERIAL 2021-01-[address] [facility] 11:59:00 [facility] POCT-GLUCOSE METER 2021-01-[address] [facility] 11:47:00 [facility] BLOOD GAS, ARTERIAL 2021-01-[address] [facility] 09:15:00 [facility] SODIUM NA-STAT LAB 2021-01-13 [facility] 09:15:00 [facility] POTASSIUM-STAT LAB 2021-01-13 [facility] 09:15:00 [facility] GLUCOSE-STAT LAB 2021-01-13 [facility] 09:15:00 [facility] HGB/HCT (H&H) - STAT LAB 2021-01-[address] [facility] 09:15:00 [facility] POTASSIUM 2021-01-13 [facility] [place] [facility] 09:14:00 [facility] MAGNESIUM 2021-01-13 [place], Galen [facility] 09:14:00 [facility] PHOSPHORUS 2021-01-13 [facility] [place] [facility] 09:14:00 [facility] (CELLAVISION MANUAL DIFF) 2021-01-13 Taye Villatoro [facility] 03:51:00 [facility] CBC W/PLT COUNT & AUTO 2021-01-13 Taye Villatoro [facility] DI[facility]ENTIAL 03:51:00 [facility] COMPREHENSIVE METABOLIC 2021-01-13 Taye Villatoro [facility] PANEL 03:51:00 [facility] MAGNESIUM 2021-01-13 [facility] 03:51:00 [facility] PHOSPHORUS 2021-01-[address] [facility] 03:51:00 [facility] XR CHEST 1 VIEW PORTABLE / 2021-01-13 Benedicto Witt [facility] 00:14:00 [facility] PREPARE PLASMA 2021-01-[address] [facility] 23:56:00 [facility] PREPARE RBC 2021-01-[address] [facility] [facility] 23:55:00 [facility] PREPARE PLATELETS 2021-01-[address] [facility] [facility] 23:55:00 [facility] PH, ARTERIAL 2021-01-12 [place], [place] [facility] 21:20:00 [facility] POTASSIUM 2021-01-12 [place], [place] [facility] 21:20:00 [facility] MAGNESIUM 2021-01-12 [place], [place] [facility] 21:20:00 [facility] PHOSPHORUS 2021-01-12 [place], [place] [facility] 21:20:00 [facility] BASIC METABOLIC PANEL (7) 2021-01-12 [place], [place] [facility] 14:27:00 [facility] PHOSPHORUS 2021-01-12 [place], [place] [facility] 14:27:00 [facility] MAGNESIUM 2021-01-12 [place], [place] [facility] 14:27:00 [facility] SPUTUM CULTURE + GRAM STAIN 2021-01-[address] [facility] 12:19:00 [facility] BRONCHIAL CULTURE + GRAM 2021-01-12 Elin Vasquez [facility] STAIN 12:19:00 [facility] MAGNESIUM 2021-01-12 [place], [place] [facility] 09:17:00 [facility] PHOSPHORUS 2021-01-12 [place], [place] [facility] 09:17:00 [facility] BASIC METABOLIC PANEL (7) 2021-01-12 [place], [place] [facility] 09:17:00 [facility] POCT-GLUCOSE METER 2021-01-[address] [facility] 06:29:00 [facility] POCT-GLUCOSE METER 2021-01-[address] [facility] 03:26:00 [facility] CALCIUM, IONIZED 2021-01-12 Uk, Nduka Bowen [facility] 03:15:00 [facility] LACTIC ACID, ARTERIAL 2021-01-12 [place], Nduka Bowen [facility] 03:15:00 [facility] OXYGEN SATURATION, MEASURED 2021-01-12 [place], Nduka Bowen [facility] 03:15:00 [facility] (CELLAVISION MANUAL DIFF) 2021-01-[address] [facility] 03:07:00 [facility] PHOSPHORUS 2021-01-12 [place], [place] [facility] 03:07:00 [facility] MAGNESIUM 2021-01-12 [place], [place] [facility] 03:07:00 [facility] CBC W/PLT COUNT & AUTO 2021-01-[address] [facility] DIFFERENTIAL 03:07:00 [facility] COMPREHENSIVE METABOLIC 2021-01-12 T[facility]atoro [facility] PANEL 03:07:00 [facility] BLOOD GAS, ARTERIAL 2021-01-[address] [facility] 03:07:00 [facility] XR CHEST 1 VIEW PORTABLE / 2021-01-12 Benedicto Witt [facility] 00:18:00 [facility] BLOOD GAS, ARTERIAL 2021-01-11 [place], Nduka Bowen [facility] 22:20:00 [facility] BASIC METABOLIC PANEL (7) 2021-01-11 [place], Nduka Bowen [facility] 22:20:00 [facility] LACTIC ACID, ARTERIAL 2021-01-11 [place], Nduka Bowen [facility] 22:20:00 [facility] BLOOD GAS, ARTERIAL 2021-01-[address] [facility] 20:48:00 [facility] OXYGEN SATURATION, MEASURED 2021-01-11 Steve, Michael [facility] 20:46:00 [facility] XR CHEST 1 VIEW PORTABLE / 2021-01-11 [place], Nduka Bowen [facility] 19:44:00 [facility] BLOOD GAS, ARTERIAL 2021-01-11 [place], Nduka Bowen [facility] 19:36:00 [facility] PROTHROMBIN TIME/INR 2021-01-11 [place], Nduka Bowen [facility] 19:36:00 [facility] APTT 2021-01-11 [place], Nduka Bowen [facility] 19:36:00 [facility] FIBRINOGEN 2021-01-11 [place], Nduka Bowen [facility] 19:36:00 [facility] THROMBOELASTOGRAPH (TEG) 2021-01-11 [place], Nduka Bowen [facility] 19:36:00 [facility] CALCIUM, IONIZED 2021-01-11 [place], [place] [facility] 19:35:00 [facility] BASIC METABOLIC PANEL (7) 2021-01-11 Sandoval McwilliamsVu Mcwilliams [facility] 19:35:00 [facility] MAGNESIUM 2021-01-11 Mcwilliams, Ike-Matthew Mcwilliams [facility] 19:35:00 [facility] PHOSPHORUS 2021-01-11 Mcwilliams, Ramires-Matthew Mcwilliams [facility] 19:35:00 [facility] BLOOD GAS, ARTERIAL 2021-01-11 [facility], Nacho Wiseman [facility] 19:35:00 [facility] LACTIC ACID, ARTERIAL 2021-01-11 [facility], Nacho Wiseman [facility] 19:35:00 [facility] CBC (HEMOGRAM ONLY) 2021-01-11 [facility], Nach[facility] Wiseman [facility] 19:35:00 [facility] SODIUM NA-STAT LAB 2021-01-11 [facility], Nach[facility] Wiseman [facility] 19:35:00 [facility] POTASSIUM-STAT LAB 2021-01-11 [facility] 19:35[facility]00 [facility] GLUCOSE-STAT LAB 2021-01-11 [facility] 19:[facility] HGB/HCT (H&H) - STAT LAB 2021-01-11 [facility], Nacho Wiseman [facility] 19:35:00 [facility] TRANSFUSE PLASMA 2021-01-11 Sharon Mendez [facility] 18:01:22 [facility] BLOOD GAS, ARTERIAL 2021-01-[address] [facility] 17:36:44 [facility] CALCIUM, IONIZED 2021-01-11 Sharon Mendez [facility] 17:36:44 [facility] SODIUM NA-STAT LAB 2021-01-[address] [facility] [facility] 17:36:44 [facility] POTASSIUM-STAT LAB 2021-01-11 Sharon [facility]endez [facility] 17:36:44 [facility] GLUCOSE-STAT LAB 2021-01-11 Sharon Mendez [facility] 17:36:44 [facility] HGB/HCT (H&H) - STAT LAB 2021-01-[address] [facility] 17:36:44 [facility] TRANSFUSE LEUKO-REDUCED RED 2021-01-11 Sharon Mendez [facility] BLOOD CELLS 17:35:09 [facility] TRANSFUSE LEUKO-REDUCED 2021-01-11 Andrea [facility] 17:34:22 [facility] TRANSFUSE LEUKO-REDUCED 2021-01-[address] [facility] 17:33:58 [facility] POCT-ACT 2021-01-[address] [facility] 17:28:00 [facility] BLOOD GAS, ARTERIAL 2021-01-[address] [facility] 17:09:25 [facility] CALCIUM, IONIZED 2021-01-[address] [facility] 17:09:25 [facility] PROTHROMBIN TIME/INR 2021-01-[address] [facility] 17:09:25 [facility] APTT 2021-01-[address] [facility] 17:09:25 [facility] FIBRINOGEN 2021-01-[address] [facility] 17:09:25 [facility] PLATELET COUNT 2021-01-[address] [facility] 17:09:25 [facility] SODIUM NA-STAT LAB 2021-01-[address] [facility] 17:09:25 [facility] POTASSIUM-STAT LAB 2021-01-[address] [facility] 17:09:25 [facility] GLUCOSE-STAT LAB 2021-01-[address] [facility] 17:09:25 [facility] HGB/HCT (H&H) - STAT LAB 2021-01-[address] [facility] 17:09:25 [facility] (CELLAVISION MANUAL DIFF) 2021-01-11 [address]efany [address]willi[address] [facility] 17:09:00 [facility] CBC W/PLT COUNT & AUTO 2021-01-11 Estefany Mcwilliams [facility] 17:09:00 [facility] POCT-ACT 2021-01-[address] 17:08:00 [facility] BLOOD GAS, ARTERIAL 2021-01-[address] [facility] 16:42:49 [facility] CALCIUM, IONIZED 2021-01-[address] [facility] 16:42:49 [facility] SODIUM NA-STAT LAB 2021-01-[address] [facility] 16:42:49 [facility] POTASSIUM-STAT LAB 2021-01-[address] [facility] 16:42:49 [facility] GLUCOSE-STAT LAB 2021-01-[address] [facility] 16:42:49 [facility] HGB/HCT (H&H) - STAT LAB 2021-01-[address] [facility] 16:42:49 [facility] FUNGUS CULTURE + SMEAR 2021-01-[address] [facility] [facility] 16:15:01 [facility] SURGICALLY OBTAINED CULTURE 2021-01-11 Tereza Galvez [facility] + GRAM STAIN 16:15:01 [facility] POCT-ACT 2021-01-[address] [facility] 16:01:00 [facility] BLOOD GAS, ARTERIAL 2021-01-[address] [facility] 15:58:32 [facility] SODIUM NA-STAT LAB 2021-01-[address] [facility] 15:58:32 [facility] POTASSIUM-STAT LAB 2021-01-[address] [facility] 15:58:32 [facility] GLUCOSE-STAT LAB 2021-01-[address] [facility] 15:58:32 [facility] HGB/HCT (H&H) - STAT LAB 2021-01-[address] [facility] 15:58:32 [facility] TISSUE EXAM 2021-01-[address] [facility] 15:53:00 [facility] POCT-ACT 2021-01-[address] 15:33:00 [facility] BLOOD GAS, ARTERIAL 2021-01-[address] [facility] 15:30:10 [facility] SODIUM NA-STAT LAB 2021-01-[address] [facility] 15:30:10 [facility] POTASSIUM-STAT LAB 2021-01-[address] [facility] 15:30:10 [facility] GLUCOSE-STAT LAB 2021-01-[address] [facility] 15:30:10 [facility] HGB/HCT (H&H) - STAT LAB 2021-01-[address] [facility] 15:30:10 [facility] BLOOD GAS, ARTERIAL 2021-01-[address] [facility] 14:57:31 [facility] SODIUM NA-STAT LAB 2021-01-[address] [facility] 14:57:31 [facility] POTASSIUM-STAT LAB 2021-01-[address] [facility] 14:57:31 [facility] GLUCOSE-STAT LAB 2021-01-[address] [facility] 14:57:31 [facility] HGB/HCT (H&H) - STAT LAB 2021-01-[address] [facility] 14:57:31 [facility] POCT-ACT 2021-01-[address] [facility] 14:48:00 [facility] ANESTHESIA VANCE 2021-01-[address] [facility] 14:31:03 [facility] POCT-ACT 2021-01-[address] [facility] 14:28:00 [facility] BLOOD GAS, ARTERIAL 2021-01-[address] [facility] 14:06:20 [facility] SODIUM NA-STAT LAB 2021-01-[address] [facility] 14:06:20 [facility] POTASSIUM-STAT LAB 2021-01-[address] [facility] 14:06:20 [facility] GLUCOSE-STAT LAB 2021-01-[address] [facility] 14:06:20 [facility] HGB/HCT (H&H) - STAT LAB 2021-01-[address] [facility] 14:06:20 [facility] REPLACEMENT,VALVE MITRAL 2021-01-[address] [facility] 13:12:00 [facility] VANCE,3D 2021-01-[address] [facility] 13:12:00 [facility] POCT-GLUCOSE METER 2021-01-[address] [facility] 12:41:00 [facility] BLOOD GAS, ARTERIAL 2021-01-[address] [facility] 09:38:00 [facility] BASIC METABOLIC PANEL (7) 2021-01-11 [facility] [place] [facility] 09:22:00 Medical Lucan CALCIUM, IONIZED 2021-01-11 [facility] [place] [facility] 09:22:00 [facility] PHOSPHORUS 2021-01-11 [facility] [place] [facility] 09:22:00 [facility] MAGNESIUM 2021-01-11 [facility] [place] [facility] 09:22:00 [facility] XR CHEST 1 VIEW PORTABLE / 2021-01-11 Benedicto [facility] 09:19:00 [facility] POCT-GLUCOSE METER 2021-01-[address] [facility] 06:47:00 [facility] COMPREHENSIVE METABOLIC 2021-01-11 Taye [facility]atoro [facility] PANEL 04:05:00 [facility] MAGNESIUM 2021-01-[address] [facility] 04:05:00 [facility] PHOSPHORUS 2021-01-[address] [facility] 04:05:00 [facility] BLOOD GAS, ARTERIAL 2021-01-[address] [facility] 04:05:00 [facility] (CELLAVISION MANUAL DIFF) 2021-01-[address] [facility] 04:04:00 [facility] CBC W/PLT COUNT & AUTO 2021-01-11 Taye Vill[facility]o [facility] DIFFERENTIAL 04:04:00 [facility] CALCIUM, IONIZED 2021-01-11 [facility] [place] [facility] 04:04:00 [facility] POCT-GLUCOSE METER 2021-01-[address] [facility] 00:08:00 [facility] SARS-COV2/RT-PCR ([facility] & REF 2021-01-[address] [facility] LABS) 23:17:00 [facility] BASIC METABOLIC PANEL (7) 2021-01-10 [facility] [place] [facility] 23:14:00 Medical [facility] CALCIUM, IONIZED 2021-01-10 [place], [place] [facility] 23:14:00 [facility] PHOSPHORUS 2021-01-[address] [facility] 23:14:00 [facility] MAGNESIUM 2021-01-[address] [facility] 23:14:00 [facility] DC INSERT 2021-01-[address] [facility] CATH,ART,PERCUT,SHORTTERM 19:00:12 [facility] SPUTUM CULTURE + GRAM STAIN 2021-01-[address] [facility] 17:15:00 [facility] BLOOD CULTURE 2021-01-10 Irving, Taye Kapadia [facility] 17:15:00 [facility] 2D ECHO W/ DOPPLER 2021-01-10 Irving, Taye Kapadia [facility] (CW/PW/COLOR) 16:47:17 [facility] PROTHROMBIN TIME/INR 2021-01-[address] [facility] 16:25:00 [facility] APTT 2021-01-[address] [facility] 16:25:00 [facility] FIBRINOGEN 2021-01-[address] [facility] 16:25:00 [facility] BLOOD GAS, VENOUS 2021-01-10 Irving, Taye Kapadia [facility] 16:25:00 [facility] XR CHEST 1 VIEW PORTABLE / 2021-01-[address] [facility] 15:41:00 [facility] TYPE AND SCREEN, AUTOMATED 2021-01-[address] [facility] 15:38:00 [facility] (CELLAVISION MANUAL DIFF) 2021-01-[address] [facility] 15:38:00 [facility] CBC W/PLT COUNT & AUTO 2021-01-10 Taye Villatoro [facility] DIFFERENTIAL 15:38:00 [facility] COMPREHENSIVE METABOLIC 2021-01-10 Taye Vill[facility] PANEL 15:38:00 [facility] MAGNESIUM 2021-01-[address] [facility] 15:38:00 [facility] PHOSPHORUS 2021-01-[address] [facility] 15:38:00 [facility] LACTIC ACID, VENOUS 2021-01-10 Taye Villatoro [facility] 15:38:00 [facility] POCT-GLUCOSE METER 2021-01-[address] [facility] 15:01:00 [facility] ECG 12-LEAD 2021-01-10 Unknown, Hl7 Doctor [facility] 14:08:05 [facility] EXTERNAL PROVIDER RECORDS 2019-08-03 Doctor Unassigned, [facility] 06:01:00 [facility] Plan of Care Planned Activity Planned Date Details Comments Source Future Scheduled 2024-01-[address] [facility] 00:00:00 (procedure) [code = [facility] 90139001] Future Scheduled 2024-01-[address] [facility] 00:00:00 (procedure) [code = [facility] [id number]] Future Scheduled 2024-01-[address] [facility] 00:00:00 (procedure) [code = [facility] [id number]] Future Scheduled 2021-02-[address] [facility] 00:00:00 (#1) [code = [facility] INFLUENZA VACCINE (#1)] Future Scheduled 2021-02-[address] [facility] 00:00:00 (#1) [[facility] INFLUENZA VACCINE (#1)] Future Scheduled 2021-02-[address] [facility] 00:00:00 (#1) [code = [facility] INFLUENZA VACCINE (#1)] Future Scheduled 2020-06-[address] [facility] 00:00:00 (12+) [code = [facility] DEPRESSION SCREENING (12+)] Future Scheduled 2020-06-[address] [facility] 00:00:00 (12+) [code = [facility] DEPRESSION SCREENING (12+)] Future Scheduled 2020-06-[address] [facility] 00:00:00 (12+) [code = [facility] DEPRESSION SCREENING (12+)] Future Scheduled 1996 DTAP/TDAP/TD VACCINES [facility] 00:00:00 (1 - Tdap) [code = Medical C enter DTAP/TDAP/TD VACCINES (1 - Tdap)] Future Scheduled 1996 DTAP/TDAP/TD VACCINES [facility] 00:00:00 (1 - Tdap) [code = Medical C enter DTAP/TDAP/TD VACCINES (1 - Tdap)] Future Scheduled 1996 DTAP/TDAP/TD VACCINES [facility] 00:00:00 (1 - Tdap) [code = Medical C enter DTAP/TDAP/TD VACCINES (1 - Tdap)] Future Scheduled 1995 HEPATITIS C SCREENING [facility] 00:00:00 [code = HEPATITIS C [facility] Center SCREENING] Future Scheduled 1995 HEPATITIS C [facility]CRE[facility]ING [facility] 00:00:00 [code = HEPATITIS C [facility] Center SCREENING] Future Scheduled 1995 HEPATITIS C [facility]CRE[facility] 00:00:00 [code = HEPATITIS C Medical Center SCREENING] Future Scheduled 1989 COVID-19 VACCINE (1) [facility] 00:00:00 [code = COVID-[address] VACCINE (1)] Future Scheduled 1989 COVID-19 VACCINE (1) [facility] 00:00:00 [code = COVID-[address] VACCINE (1)] Future Scheduled 1989 COVID-19 VACCINE (1) [facility] 00:00:00 [code = COVID-[address] VACCINE (1)] Encounters Start End Encounter Admission Attending Care Care Encounter Source Date/Time Date/Time Type Type Clinicians Facility Department ID 2022-03-27 Outpatient [id number] Memoria 13:22:33 [id number] [id number] [place] [id number] 2021-04-06 Outpatient [facility] [id number] Univers 23:36:40 [facility] 2021-04-06 Outpatient [facility] [id number] Univers 13:49:25 [facility] 2021-03-14 Outpatient [id number] [facility]oria 16:36:28 [id number] [place] [id number] 2021-01-09 [facility] Cardiology [id number] [facility] 00:00:00 Encounter [facility] 2019-03-15 Inpatient [facility] [id number] [facility] W 17:40:00 2021-04-12 2021-04-12 Outpatient QUITA CASTELLANO [facility] [id number] [facility] 13:05:26 13:05:26 BAKARI 2021-04-04 2021-04-04 Outpatient [facility]AN [facility] [id number] [facility] 00:00:00 00:00:00 BAKARI 2021-03-27 2021-03-27 Outpatient [facility] [id number] [facility] 00:00:00 00:00:00 BAKARI 2021-03-27 2021-03-27 Outpatient [facility] [id number] [facility] 00:00:00 00:00:00 BAKARI 2021-01-10 2021-03-25 Inpatient DEDE ORTIZ, [facility] [id number] [facility] 14:49:00 17:10:00 [facility] 2021-03-20 2021-03-20 Outpatient [facility]AN [facility] [id number] [facility] 00:00:00 00:00:00 BAKARI 2021-03-20 2021-03-20 Outpatient [facility] [id number] [facility] 00:00:00 00:00:00 SUDEEP 2021-03-10 2021-03-10 Outpatient [facility] [id number] [facility] 00:00:00 00:00:00 BAKARI 2021-03-01 2021-03-01 Outpatient [facility] [id number] [facility] 00:00:00 00:00:00 BAKARI 2021-02-15 2021-02-15 Outpatient [facility]AN [facility] [id number] [facility] 00:00:00 00:00:00 BAKARI 2021-02-15 2021-02-15 Outpatient [facility] [id number] [facility] 00:00:00 00:00:00 BAKARI 2021-01-31 2021-01-31 Outpatient QUITA PIERCE SLE [id number] [facility] 00:00:00 00:00:00 SUDEEP 2021-01-23 2021-01-23 Outpatient BCM BC [id number] [facility] 11:45:00 23:59:00 [facility] 2021-01-23 2021-01-23 Surgery Omra [facility] [id number] [address] 14:18:00 16:57:00 [facility] 2021-01-23 2021-01-23 Anesthesia Terencejaime Jaison [facility] [id number] [facility] 12:46:00 15:41:00 Event Alden Arias [facility] 2021-01-22 2021-01-22 Anesthesia Ekta [facility] [id number] [facility] 06:27:40 06:27:40 Event [facility] 2021-01-21 2021-01-21 Travel [facility] [id number] [facility] 00[facility] 00:00:00 [facility] 2021-01-16 2021-01-16 Outpatient BCM [facility] [id number] [facility] 00:00:00 23:59:00 [facility] 2021-01-16 2021-01-16 Anesthesia Debra [facility] [id number] [facility] 14:00:00 14:00:00 Event Arcadio Hodge [facility] 2021-01-11 2021-01-11 Anesthesia Sharon Mendez [facility] [id number] [facility] 13:02:00 19:30:00 Event Suzie Beth [facility] 2021-01-11 2021-01-11 Surgery Omar [facility] [id number] 13:43:00 16:58:00 [facility] 2021-01-10 2021-01-10 Outpatient BCM BC [id number] [facility] 14:49:00 23:59:00 [facility] 2021-01-10 2021-01-10 Outpatient BCM BC [id number] [facility] 14:49:00 14:49:00 [facility] 2021-01-10 2021-01-10 Orders [facility] [id number] 00:00:00 00:00:00 Only [facility] 2020-12-15 2020-12-15 Outpatient R [facility] [id number] [facility] [place] [place] 13:30:00 13:30:00 WONDIFUL ity o f [facility] 2020-02-01 2020-02-01 [facility] 1.2.840.114 [id number] 00:00:00 00:00:00 Agus R SPECIALTY 350.1.13.10 CARE 4.2.7.2.686 CENTER AT [id number] [address] 2020-02-01 2020-02-01 [facility]phone [facility] 1.2.840.[id number] [facility] [place] [place] 00:00:00 00:00:00 Agus R SPECIALTY 350.1.13.10 [place] [id number] [address] 2019-12-22 2019-12-22 Telephone Faculty, UNIVERSIT 1.2.840.114 [id number] 00:00:00 00:00:00 Vascular Y HEALTH 350.1.13.10 Surg CLINICS 4.2.7.2.686 [id number] [facility] 2019-12-22 2019-12-22 Telephone Jacquie, UNIVERSIT 1.2.840.114 [id number] Univers 00:00:00 00:00:00 Vascular Y HEALTH 350.1.13.10 it[place] S[id number] [address] 2019-11-19 2019-11-19 Telephone SOHAM RubiIT 1.2.840.114 [id number] 00:00:00 00:00:00 Ted Y HEALTH 350.1.13.10 CLINICS 4.2.7.2.686 [id number] [facility] 2019-11-19 2019-11-19 Telephone SOHAM RubiIT 1.2.840.114 [id number] Univers 00:00:00 00:00:00 [facility] Karis [facility] 350.1.13.10 i ty of CL[place] [id number] [address] 2019-11-04 2019-11-04 Telephone NICOLE Rubi 1.2.840.114 [id number] 00:00:00 00:00:00 [facility] Karis HEALTH 350.1.13.10 CLINICS 4.2.7.2.686 [id number] [facility] 2019-11-04 2019-11-04 Telephone NICOLE Rubi 1.2.840.114 [id number] Univers 00:00:00 00:00:00 Ted Karis [facility] 350.1.13.10 i ty [place] [id number] [address] 2019-08-19 2019-09-01 Office SOHAM Rubi [id number] Univers 11:01:36 12:14:59 Visit Ted Karis [facility] 350.1.13.10 i ty of CL[place] [id number] [address] 2019-08-19 2019-08-19 Outpatient R ELICIA [facility] [id number] Univers 10:15:00 10:15:00 [facility] ity [facility] 2019-08-03 2019-08-03 Orders Doctor DENA 1.2.840.114 [id number] Univers 00:00:00 00:00:00 Only Unassigned, ROXIE 350.1.13.10 ity of Friendly [facility] 4.2.7.2.686 Mark as [id number] [address] Results Test Description Test Time Test Comments Results Result Comments Source PROTHROMBIN TIME/INR 2021-03-25 06:33:53 Test Item Value Reference Range Interpretation Comme nts PROTIME (BEAKER) (test code 28.1 seconds 11.9-14.2 H = 759) INR (BEAKER) (test code = 2.67 See_Comment [ Automated message] The 370) system which ge nerated this result transmit ari reference range: <=5.90. The reference range was not u sed to interpret this result as normal/abnormal . RECOMMENDED COUMADIN/WARFARIN INR THERAPY RANGESSTANDARD DOSE: 2.0 - 3.0 Includes: PROPHYLAXIS for venous thrombosis, systemic embolization; TREATMENT for venous thrombosis and/or pulmonary embolus.HIGH RISK: Target INR is 2.5-3.5 for patients with mechanical heart valves.SARS-COV2/RT-PCR ([facility]) 2021-03-25 03:01:02 Test Item Value Reference Range Interpretation Comments SARS-COV2/RT-PCR (test code = Negative Negative [id number]) Negative result for this test determines that [...] under Section 564(g) of the Act.Testing was performed using Muse SARS-CoV-2 assay.Fact Sheet for Healthcare Providers:https://www.Ampere.QBotix/jermaine/RT SARS-CoV-2 HCP Fact Sheet 51- 790277.pdfFact Sheet for Healthcare Patients:https://www.eLearning Connections/jermaine/RT SARS-CoV-2 Patient Fact Sheet EN 51-352866R8.pdfBASIC METABOLIC [id number] 16:24:38 Test Item Value Reference Range Interpretation [...] S NOT APPLICABLE FOR DIALYSIS PATIEN TS. Sales Enablement Consultant ID - DBCBC (HEMOGRAM ONLY)2021-03-24 16:04:46 Test [...] = 413) RAD, CHEST, 1 VIEW, NON [id number] 15:20:00Reason for exam:->chfShould this be performed at the bedside?->Yes [facility] 1975 Sex: MAddendum BeginsREPORT STATUS:A Addendum: No evidence of active tuberculosis. Signed:Re Cantu Verified Date/Time: 03/24/2021 15:20:26 Reading Location: [address] Neuro Reading RoomAddendum EndsFINAL REPORT RAD, CHEST, 1 VIEW, NON DEPT INDICATION:chf COMPARISON: Prior day's exam FINDINGS: Portable frontal view of the chest. IMPRESSION: Support Lines: Dialysis catheter tip overlies the atriocaval junction Lungs and pleura: Bilateral airspace opacities concerning for multifocal pneumonia versus multifocal edema. No significant pneumothorax. Heart and mediastinum: Stable contours. Additional findings: None. Signed: Re Cantu Verified Date/Time: 03/14/2021 07:27:07 Reading Location: [facility] Radiology Reading Room PROTHROMBIN TIME/[id number] 04:54:57 Test Item Value Reference Range Interpretation Comments PROTIME (BEAKER) 27.8 seconds 11.9-14.2 H (test code = 759) INR (BEAKER) (test 2.63 See_Comment [Automat ed message] code = 370) The system Zoondy generated this result transmitted ref erence range: <=5.90. The reference range was not used to int erpret this result as normal/abnormal . RECOMMENDED COUMADIN/WARFARIN INR THERAPY RANGESSTANDARD DOSE: 2.0 - 3.0 Includes: PROPHYLAXIS for venous thrombosis, systemic embolization; TREATMENT for venous thrombosis and/or pulmonary embolus.HIGH RISK: Target INR is 2.5-3.5 for patients with mechanical heart valves.PROTHROMBIN TIME/[id number] 05:42:02 Test Item Value Reference Range Interpretation Comments PROTIME (BEAKER) 25.9 seconds 11.9-14.2 H (test code = 759) INR (BEAKER) (test 2.40 See_Comment [Automat ed message] code = 370) The system Zoondy generated this result transmitted ref erence range: <=5.90. The reference range was not used to int erpret this result as normal/abnormal . RECOMMENDED COUMADIN/WARFARIN INR THERAPY RANGESSTANDARD DOSE: 2.0 - 3.0 Includes: PROPHYLAXIS for venous thrombosis, systemic embolization; TREATMENT for venous thrombosis and/or pulmonary embolus.HIGH RISK: Target INR is 2.5-3.5 for patients with mechanical heart valves.BASIC METABOLIC [id number] 07:39:53 Test Item Value Reference Range Interpretation [...] S NOT APPLICABLE FOR DIALYSIS PATIEN TS. Sales Enablement Consultant ID - PIAYA LPROTHROMBIN TIME/[id number] 06:23:41 Test Item Value Reference Range Interpretation Comments PROTIME (BEAKER) 26.2 seconds 11.9-14.2 H (test code = 759) INR (BEAKER) (test 2.43 See_Comment [Automat ed message] code = 370) The system Zoondy generated this result transmitted ref erence range: <=5.90. The reference range was not used to int erpret this result as normal/abnormal . RECOMMENDED COUMADIN/WARFARIN INR THERAPY RANGESSTANDARD DOSE: 2.0 - 3.0 Includes: PROPHYLAXIS for venous thrombosis, systemic embolization; TREATMENT for venous thrombosis and/or pulmonary embolus.HIGH RISK: Target INR is 2.5-3.5 for patients with mechanical heart valves.CBC W/PLT COUNT & AUTO [id number] 06:03:13 Test Item Value Reference Range Interpretation [...] (BEAKER) (test code = 2801) BASIC METABOLIC [id number] 07:28:56 Test Item Value Reference Range Interpretation [...] S NOT APPLICABLE FOR DIALYSIS PATIEN TS. Sales Enablement Consultant ID - KT GPROTHROMBIN TIME/[id number] 05:52:11 Test Item Value Reference Range Interpretation Comments PROTIME (BEAKER) 25.3 seconds 11.9-14.2 H (test code = 759) INR (BEAKER) (test 2.33 See_Comment [Automat ed message] code = 370) The system Zoondy generated this result transmitted ref erence range: <=5.90. The reference range was not used to int erpret this result as normal/abnormal . RECOMMENDED COUMADIN/WARFARIN INR THERAPY RANGESSTANDARD DOSE: 2.0 - 3.0 Includes: PROPHYLAXIS for venous thrombosis, systemic embolization; TREATMENT for venous thrombosis and/or pulmonary embolus.HIGH RISK: Target INR is 2.5-3.5 for patients with mechanical heart valves.CBC W/PLT COUNT & AUTO [id number] 05:43:50 Test Item Value Reference Range Interpretation [...] (BEAKER) (test code = 2801) BASIC METABOLIC [id number] 06:54:24 Test Item Value Reference Range Interpretation [...] S NOT APPLICABLE FOR DIALYSIS PATIEN TS. Sales Enablement Consultant ID - PIRAFY [id number] 06:42:10 Test Item Value Reference Range Interpretation Comments MAGNESIUM (BEAKER) (test code = 2.4 mg/dL 1.6-2.6 627) Sales Enablement Consultant ID - LINA LPROTHROMBIN TIME/[id number] 04:45:47 Test Item Value Reference Range Interpretation Comments PROTIME (BEAKER) 27.8 seconds 11.9-14.2 H (test code = 759) INR (BEAKER) (test 2.62 See_Comment [Automat ed message] code = 370) The system Zoondy generated this result transmitted ref erence range: <=5.90. The reference range was not used to int erpret this result as normal/abnormal . RECOMMENDED COUMADIN/WARFARIN INR THERAPY RANGESSTANDARD DOSE: 2.0 - 3.0 Includes: PROPHYLAXIS for venous thrombosis, systemic embolization; TREATMENT for venous thrombosis and/or pulmonary embolus.HIGH RISK: Target INR is 2.5-3.5 for patients with mechanical heart valves.CBC W/PLT COUNT & AUTO [id number] 04:40:30 Test Item Value Reference Range Interpretation [...] (BEAKER) (test code = 2801) BASIC METABOLIC [id number] 06:18:33 Test Item Value Reference Range Interpretation [...] S NOT APPLICABLE FOR DIALYSIS PATIEN TS. Sales Enablement Consultant ID - LINA [id number] 06:17:36 Test Item Value Reference Range Interpretation Comments MAGNESIUM (BEAKER) (test code = 2.3 mg/dL 1.6-2.6 627) Sales Enablement Consultant ID - LINA LPROTHROMBIN TIME/[id number] 05:08:54 Test Item Value Reference Range Interpretation Comments PROTIME (BEAKER) 25.0 seconds 11.9-14.2 H (test code = 759) INR (BEAKER) (test 2.30 See_Comment [Automat ed message] code = 370) The system Zoondy generated this result transmitted ref erence range: <=5.90. The reference range was not used to int erpret this result as normal/abnormal . RECOMMENDED COUMADIN/WARFARIN INR THERAPY RANGESSTANDARD DOSE: 2.0 - 3.0 Includes: PROPHYLAXIS for venous thrombosis, systemic embolization; TREATMENT for venous thrombosis and/or pulmonary embolus.HIGH RISK: Target INR is 2.5-3.5 for patients with mechanical heart valves.CBC W/PLT COUNT & AUTO [id number] 04:44:43 Test Item Value Reference Range Interpretation [...] PERCENT (BEAKER) (test code = 2801) PROTHROMBIN TIME/[id number] 08:29:25 Test Item Value Reference Range Interpretation Comments PROTIME (BEAKER) 21.5 seconds 11.9-14.2 H (test code = 759) INR (BEAKER) (test 1.90 See_Comment [Automat ed message] code = 370) The system Zoondy generated this result transmitted ref erence range: <=5.90. The reference range was not used to int erpret this result as normal/abnormal . RECOMMENDED COUMADIN/WARFARIN INR THERAPY RANGESSTANDARD DOSE: 2.0 - 3.0 Includes: PROPHYLAXIS for venous thrombosis, systemic embolization; TREATMENT for venous thrombosis and/or pulmonary embolus.HIGH RISK: Target INR is 2.5-3.5 for patients with mechanical heart valves.BASIC METABOLIC [id number] 08:04:03 Test Item Value Reference Range Interpretation [...] S NOT APPLICABLE FOR DIALYSIS PATIEN TS. Sales Enablement Consultant ID - [id number] 07:56:20 Test Item Value Reference Range Interpretation Comments MAGNESIUM (BEAKER) (test code = 2.2 mg/dL 1.6-2.6 627) Sales Enablement Consultant ID - DBCBC W/PLT COUNT & AUTO [id number] 06:24:39 Test Item Value Reference Range Interpretation [...] (BEAKER) (test code = 2801) BASIC METABOLIC [id number] 05:13:11 Test Item Value Reference Range Interpretation [...] S NOT APPLICABLE FOR DIALYSIS PATIEN TS. Sales Enablement Consultant ID - [id number] 05:12:41 Test Item Value Reference Range Interpretation Comments MAGNESIUM (BEAKER) (test code = 2.0 mg/dL 1.6-2.6 627) Sales Enablement Consultant ID - jrlPROTHROMBIN TIME/[id number] 04:43:24 Test Item Value Reference Range Interpretation Comments PROTIME (BEAKER) 19.8 seconds 11.9-14.2 H (test code = 759) INR (BEAKER) (test 1.70 See_Comment [Automat ed message] code = 370) The system Zoondy generated this result transmitted ref erence range: <=5.90. The reference range was not used to int erpret this result as normal/abnormal . RECOMMENDED COUMADIN/WARFARIN INR THERAPY RANGESSTANDARD DOSE: 2.0 - 3.0 Includes: PROPHYLAXIS for venous thrombosis, systemic embolization; TREATMENT for venous thrombosis and/or pulmonary embolus.HIGH RISK: Target INR is 2.5-3.5 for patients with mechanical heart valves.CBC W/PLT COUNT & AUTO [id number] 04:35:16 Test Item Value Reference Range Interpretation [...] (BEAKER) (test code = 2801) BASIC METABOLIC [id number] 06:02:17 Test Item Value Reference Range Interpretation [...] S NOT APPLICABLE FOR DIALYSIS PATIEN TS. Sales Enablement Consultant ID - LINA [id number] 05:58:16 Test Item Value Reference Range Interpretation Comments PHOSPHORUS (BEAKER) (test code = 3.5 mg/dL 2.3-4.7 604) Sales Enablement Consultant ID - LINA [id number] 05:58:15 Test Item Value Reference Range Interpretation Comments MAGNESIUM (BEAKER) (test code = 2.0 mg/dL 1.6-2.6 627) Sales Enablement Consultant ID - LINA LCBC W/PLT COUNT & AUTO [id number] 05:27:17 Test Item Value Reference Range Interpretation [...] PERCENT (BEAKER) (test code = 2801) PROTHROMBIN TIME/[id number] 05:24:58 Test Item Value Reference Range Interpretation Comments PROTIME (BEAKER) 19.3 seconds 11.9-14.2 H (test code = 759) INR (BEAKER) (test 1.65 See_Comment [Automat ed message] code = 370) The system Zoondy generated this result transmitted ref erence range: <=5.90. The reference range was not used to int erpret this result as normal/abnormal . RECOMMENDED COUMADIN/WARFARIN INR THERAPY RANGESSTANDARD DOSE: 2.0 - 3.0 Includes: PROPHYLAXIS for venous thrombosis, systemic embolization; TREATMENT for venous thrombosis and/or pulmonary embolus.HIGH RISK: Target INR is 2.5-3.5 for patients with mechanical heart valves.CALCIUM, [id number] 05:17:50 Test Item Value Reference Range Interpretation Comments CALCIUM IONIZED (BEAKER) (test 1.18 mmol/L 1.12-1.27 code = 698) PH, BLOOD (BEAKER) (test code = 7.44 1810) BASIC METABOLIC [id number] 04:50:11 Test Item Value Reference Range Interpretation [...] S NOT APPLICABLE FOR DIALYSIS PATIEN TS. Sales Enablement Consultant ID - [id number] 04:37:45 Test Item Value Reference Range Interpretation Comments MAGNESIUM (BEAKER) (test code = 2.1 mg/dL 1.6-2.6 627) Sales Enablement Consultant ID - jrlPROTHROMBIN TIME/[id number] 04:31:43 Test Item Value Reference Range Interpretation Comments PROTIME (BEAKER) 17.3 seconds 11.9-14.2 H (test code = 759) INR (BEAKER) (test 1.44 See_Comment [Automat ed message] code = 370) The system Zoondy generated this result transmitted ref erence range: <=5.90. The reference range was not used to int erpret this result as normal/abnormal . RECOMMENDED COUMADIN/WARFARIN INR THERAPY RANGESSTANDARD DOSE: 2.0 - 3.0 Includes: PROPHYLAXIS for venous thrombosis, systemic embolization; TREATMENT for venous thrombosis and/or pulmonary embolus.HIGH RISK: Target INR is 2.5-3.5 for patients with mechanical heart valves.CBC W/PLT COUNT & AUTO [id number] 04:16:33 Test Item Value Reference Range Interpretation [...] PERCENT (BEAKER) (test code = 2801) PROTHROMBIN TIME/[id number] 07:23:37 Test Item Value Reference Range Interpretation Comments PROTIME (BEAKER) 18.6 seconds 11.9-14.2 H (test code = 759) INR (BEAKER) (test 1.58 See_Comment [Automat ed message] code = 370) The system Zoondy generated this result transmitted ref erence range: <=5.90. The reference range was not used to int erpret this result as normal/abnormal . RECOMMENDED COUMADIN/WARFARIN INR THERAPY RANGESSTANDARD DOSE: 2.0 - 3.0 Includes: PROPHYLAXIS for venous thrombosis, systemic embolization; TREATMENT for venous thrombosis and/or pulmonary embolus.HIGH RISK: Target INR is 2.5-3.5 for patients with mechanical heart valves.SARS-COV2/RT-PCR ([facility]) 2021-03-14 05:57:12 Test Item Value Reference Range Interpretation Comments SARS-COV2/RT-PCR (test code = Negative Negative [id number]) Negative result for this test determines that [...] under Section 564(g) of the Act.Testing was performed using Muse SARS-CoV-2 assay.Fact Sheet for Healthcare Providers:https://www.Ampere.avila/jermaine/RT SARS-CoV-2 HCP Fact Sheet 51- 277659.pdfFact Sheet for Healthcare Patients:https://www.Ampere.avila/jermaine/RT SARS-CoV-2 Patient Fact Sheet EN 51-447195B0.[id number] 02:21:39 Test Item Value Reference Range Interpretation Comments MAGNESIUM (BEAKER) (test code = 1.9 mg/dL 1.6-2.6 627) Sales Enablement Consultant ID - VALDEZ MBASIC METABOLIC [id number] 02:14:15 Test Item Value Reference Range Interpretation [...] S NOT APPLICABLE FOR DIALYSIS PATIEN TS. Sales Enablement Consultant ID - VALDEZ MHEMOGLOBIN AND [id number] 01:40:58 Test Item Value Reference Range Interpretation Comments HEMOGLOBIN (BEAKER) (test code = 8.2 GM/DL 13.7-17.5 L 410) HEMATOCRIT (BEAKER) (test code = 25.5 % 40.1-51.0 L 411) Sales Enablement Consultant ID - [id number], [id number] 23:45:00Unlisted Reason for Exam - Click Yes and Enter Reason Below->NoWill this procedure require oral co ntrast?->No[facility] : 1975 Sex: MFINAL REPORT CLINICAL HISTORY: GI bleed FINDINGS: Multiple axial images of the abdomen and pelvis were performed without intravenous contrast. Oral contrast was not given. This exam wasperformed according to our departmental dose-optimization program, which includes automated exposurecontrol, adjustment of the mA and/or kV according to patient size and/or use of the iterative reconstruction technique. The examination is limited by lack of IV contrast. Comparison:01/22/2021 Lower chest: Calcified granulomas in the right lower lung. Small bilateral pleural effusions and right greaterthan left basilar opacities. Elevated left hemidiaphragm. Cardiomegaly. Previous mitral valve replacement. Liver: Hepatomegaly, measuring 18.4 cm in craniocaudal dimension of the right midclavicular line. Gallbladder and biliary tree: No significant findings. Spleen: No significant findings. Adrenal Glands: No significant findings. Kidneys and ureters: Poor visualization of the involuted, multicystickidneys. Stomach and Duodenum: No significant findings. Pancreas: No significant findings. Bowel: Moderate fecal burden, including a large ball of formed stool in the rectum. Right colonic diverticulosis. No bowel obstruction or pneumatosis intestinalis. Appendix: Normal. Bladder: Decompressed Major vascular structures: Atherosclerotic calcifications. Engorgement of the IVC and hepatic veins suggesting right heart dysfunction. Reproductive organs: No significant findings. Other: Diffuse mesenteric edema and diffuse subcutaneous edema. No free intraperitoneal air. Skeleton: No acute bony abnormality. IMPRESSION: The examination is limited by [...] blood cell scan can be considered, if indicated. Right colonic diverticulosis. Small bilateral pleural effusions. Left greater than right pulmonary opacities which may reflect some combination of atelectasis and edema. Pneumonitis should be excluded clinically.Cardiomegaly. Hepatomegaly. Poor visualization of the involuted, multicystic kidneys. Signed: Domingo Duron MDReport Verified Date/Time: 03/13/2021 23:45:08 [id number] 16:59:02 Test Item Value Reference Range Interpretation Comments HAPTOGLOBIN (BEAKER) (test code = 25 mg/dL 14-258 366) Sales Enablement Consultant ID - [id number] 15:44:30 Test Item Value Reference Range Interpretation Comments FERRITIN (BEAKER) (test code = 1918.52 ng/mL 5.00-275.00 H 361) Sales Enablement Consultant ID - DBOperator ID - DBVITAMIN B12 AND [id number] 15:41:58 Test Item Value Reference Range Interpretation Comments VITAMIN B12 (BEAKER) 524 pg/mL 213-816 (test code = 774) FOLATE (BEAKER) 6.10 ng/mL See_Comment L [Automated message] (test code = 362) The system which generated this result transmitted ref erence range: >=7.00. The reference range was not used to interpr et this result as normal/abnormal . Sales Enablement Consultant ID - DBOperator ID - DBLACTATE DEHYDROGENASE (LDH)2021-03-13 14:43:19 Test Item Value Reference Range Interpretation Comments LACTATE DEHYDROGENASE 580 U/L 125-220 H Specim en moderately (BEAKER) (test code = hemoly zed 635) Sales Enablement Consultant ID - GEMINI VELÁSQUEZ, TIBC, % SAT. (WITHOUT FERRITIN)2021-03-13 14:39:07 Test Item Value Reference Range Interpretation Comments IRON (BEAKER) (test code = 547) 63.0 ug/dL 40.0-160.0 TOTAL IRON BINDING CAPACITY 155 ug/dL 250-450 L (BEAKER) (test code = 769) IRON % SATURATION (2) (BEAKER) 41 % 20-55 (test code = 2590) Sales Enablement Consultant ID - CAROLINA FPLASMA FREE [id number] 14:30:24 Test Item Value Reference Range Interpretation Comments HEMOGLOBIN PLASMA (BEAKER) (test 90.0 mg/dl 0.0-30.0 H code = 1054) HEMOGLOBIN AND [id number] 14:23:29 Test Item Value Reference Range Interpretation Comments HEMOGLOBIN (BEAKER) (test code = 8.2 GM/DL 13.7-17.5 L 410) HEMATOCRIT (BEAKER) (test code = 24.8 % 40.1-51.0 L 411) Sales Enablement Consultant ID - [id number] [id number] 14:23:27 Test Item Value Reference Range Interpretation Comments RETICULOCYTE COUNT PCT (BEAKER) (test 2.3 % 0.5-1.8 H code = 575) Sales Enablement Consultant ID - [id number], CHEST, 1 VIEW, NON [id number] 09:09:00Reason for exam:->chfShould this be performed at the bedside?->Yesafter HD today qt 11 [facility] : 1975 Sex: [...] Normal contours. Additional findings: None. Signed: Re [facility]ell[facility] Verified Date/Time: 03/13/2021 09:09:22 Reading Location: [facility] Radiology Reading Room BASIC METABOLIC [id number] 04:12:57 Test Item Value Reference Range Interpretation [...] S NOT APPLICABLE FOR DIALYSIS PATIEN TS. Sales Enablement Consultant ID - KENNETH [id number] 04:09:45 Test Item Value Reference Range Interpretation Comments MAGNESIUM (BEAKER) (test code = 2.3 mg/dL 1.6-2.6 627) Sales Enablement Consultant ID - KENNETH WPROTHROMBIN TIME/[id number] 03:56:35 Test Item Value Reference Range Interpretation Comments PROTIME (BEAKER) 19.0 seconds 11.9-14.2 H (test code = 759) INR (BEAKER) (test 1.62 See_Comment [Automat ed message] code = 370) The system Zo[employer] generated this result transmitted ref erence range: <=5.90. The reference range was not used to int erpret this result as normal/abnormal . RECOMMENDED COUMADIN/WARFARIN INR THERAPY RANGESSTANDARD DOSE: 2.0 - 3.0 Includes: PROPHYLAXIS for venous thrombosis, systemic embolization; TREATMENT for venous thrombosis and/or pulmonary embolus.HIGH RISK: Target INR is 2.5-3.5 for patients with mechanical heart valves.CBC W/PLT COUNT & AUTO [id number] 03:46:11 Test Item Value Reference Range Interpretation [...] PERCENT (BEAKER) (test code = 2801) SARS-COV2/RT-PCR ([facility])2021-03-12 10:44:31 Test Item Value Reference Range Interpretation Comments SARS-COV2/RT-PCR (test Negative Not Detected, Negative, code = 2892116) See external report for linked test SARS-COV-2 PERFORMING LAB [facility] (test code = 6044437) Negative result for this test determines that [...] justifying the authorization of the emergency use ofin vitro diagnostic tests for detection and/or diagnosis of COVID-19 is terminated under Section 564(b)(2) of the Act or the EUA is revoked under Section 564(g) of the Act.Fact Sheet for Healthcare Prov iders:https://www.[employer]/sites/default/files/product/documents/Fact_Sheet_HC _Ubrnlbqrw_Boav_OEGO-ScK-5.pdfFact Sheet for Healthcare Patients:https://www.[employer]/sites/default/files/product/docume nts/Ffdj_Uggvo_Zucifzon_Wbnp_QROC-QlB-1.pdfPerforming Laboratory:[facility], [place] [address]MLS, CHEST, 1 VIEW, NON [id number] 08:32:00Reason for exam:->Assess cardiopulmonary statusShould this be performed at the bedside?->Yes [facility] 1975 Sex: MFINAL REPORT TECHNIQUE: Frontal view of the chest. INDICATION: Assess cardiopulmonary status COMPARISON: 03/11/2021. FINDINGS: LINES/TUBES: Right IJ dialysis catheter tip terminates overthe right atrium. LUNGS: Diffuse bilateral pleural and parenchymal opacities are not significantly changed since previous exam. No new consolidation. No pneumothorax. HEART AND MEDIASTINUM: The cardiome diastinal silhouette is stable status post median sternotomy. SOFT TISSUES AND BONES: Unremarkable. IMPRESSION:No significant interval change.. Signed: Jarrell Allen Verified Date/Time: 03/12/2021 08:32:05 Reading Location: [facility] C013Y CT Body Reading Room BASIC METABOLIC [id number] 07:41:58 Test Item Value Reference Range Interpretation [...] S NOT APPLICABLE FOR DIALYSIS PATIEN TS. Sales Enablement Consultant ID - KENNETH [facility] (HEMOGRAM ONLY)2021-03-12 05:39:27 Test Item Value Reference [...] (BEAKER) (test code = 413) BASIC METABOLIC [id number] 04:49:56 Test Item Value Reference Range Interpretation [...] S NOT APPLICABLE FOR DIALYSIS PATIEN TS. Sales Enablement Consultant ID - KENNETH EDINSON SENSITIVITY TROPONIN [id number] 04:31:11 Test Item Value Reference Range Interpretation Comments HIGH SENSITIVITY 113 pg/ml See_Comment H [Automated message] TROPONIN I (test code The stem which = 8075882) generated this result transmitted ref erence range: <=35. Th e reference range was not used to int erpret this result as normal/abnormal . Sales Enablement Consultant ID - KENNETH WThe ANIMAL CYTOLOGIST STAT High Sensitivity Troponin-I results should be used in conjunction with other diagnostic information such as ECG, clinical observations and information, and patient symptoms to aid in the diagnosis of MN.PROTHROMBIN TIME/[id number] 04:20:43 Test Item Value Reference Range Interpretation Comments PROTIME (BEAKER) 19.7 seconds 11.9-14.2 H (test code = 759) INR (BEAKER) (test 1.69 See_Comment [Automat ed message] code = 370) The system [facility] generated this result transmitted ref erence range: <=5.90. The reference range was not used to int erpret this result as normal/abnormal . RECOMMENDED COUMADIN/WARFARIN INR THERAPY RANGESSTANDARD DOSE: 2.0 - 3.0 Includes: PROPHYLAXIS for venous thrombosis, systemic embolization; TREATMENT for venous thrombosis and/or pulmonary embolus.HIGH RISK: Target INR is 2.5-3.5 for patients with mechanical heart valves.BASIC METABOLIC [id number] 21:53:20 Test Item Value Reference Range Interpretation [...] S NOT APPLICABLE FOR DIALYSIS PATIEN TS. Sales Enablement Consultant ID - [id number] 21:52:49 Test Item Value Reference Range Interpretation Comments PHOSPHORUS (BEAKER) (test code = 3.7 mg/dL 2.3-4.7 604) Sales Enablement Consultant ID - DBCBC W/PLT COUNT & AUTO [id number] 21:37:55 Test Item Value Reference Range Interpretation [...] 0-100 H (BEAKER) (test code = 700) Sales Enablement Consultant ID - KT GRAD, CHEST, 1 VIEW, NON [id number] 19:27:00Reason for exam:->[facility] : 1975 Sex: MFINAL REPORT History: Shortness of breath. Comparison: 02/25/2021 Findings: A single view of the chest is [...] catheter is in stable position. Signed: Domingo Duronell[facility] Verified Date/Time: 03/11/2021 19:27:48 -[id number] 19:26:03 Test Item Value Reference Range Interpretation Comments POC-GLUCOSE (TAMARA) 101 mg/dL 70-110 : TESTE D AT [facility] [address] (test code = 1855) [place], [address]: Sales Enablement Consultant/Techni won ID = [id number] for MARF IL LUCA [id number]-[id number] 19:26:01 Test Item Value Reference Range Interpretation Comments POC-HEMATOCRIT 27 % 40-50 L : Sales Enablement Consultant/Te chnician ID = (TAMARA) (test code = 640964 for MARFIL, LUCA 1857) [id number] 19:25:59 Test Item Value Reference Range Interpretation Comments POC-HEMOGLOBIN 9.2 g/dL 13.0-16.8 L : TESTED AT [facility] [address] (BEAKER) (test code = [facility] Tam [facility] [place], 1856) [address]: Sales Enablement Consultant/Techni won ID = [id number] for MARF IL, LUCA [id number] 19:25:57 Test Item Value Reference Range Interpretation Comments POC-POTASSIUM 4.1 meq/L 3.6-5.5 : TESTED AT [facility] [address] (BEAKER) (test code [facility], = 1540) [address]: Sales Enablement Consultant/Techni won ID = [id number] for MARF IL, LUCA [id number] 19:25:55 Test Item Value Reference Range Interpretation Comments POC-SODIUM (BEAKER) 140 meq/L 135-148 : TESTED AT [facility] [address] (test code = 1542) [facility], [address]: Sales Enablement Consultant/Techni won ID = [id number] for MARF IL, LUCA POCT-BLOOD GASES, [id number] 19:25:53 Test Item Value Reference Range Interpretation [...] 5.0 meq/L -2.0-3.0 H : TESTED AT [facility] [address] ARTERIAL-POC [facility], (BEAKER) (test code [address]: = 1841) Sales Enablement Consultant/Techni won ID = [id number] for MARF IL, LUCA PROTHROMBIN TIME/[id number] 05:38:58 Test Item Value Reference Range Interpretation Comments PROTIME (BEAKER) 22.0 seconds 11.9-14.2 H (test code = 759) INR (BEAKER) (test 1.95 See_Comment [Automat ed message] code = 370) The system Zo[employer] generated this result transmitted ref erence range: <=5.90. The reference range was not used to int erpret this result as normal/abnormal . RECOMMENDED COUMADIN/WARFARIN INR THERAPY RANGESSTANDARD DOSE: 2.0 - 3.0 Includes: PROPHYLAXIS for venous thrombosis, systemic embolization; TREATMENT for venous thrombosis and/or pulmonary embolus.HIGH RISK: Target INR is 2.5-3.5 for patients with mechanical heart valves.BASIC METABOLIC [id number] 07:13:10 Test Item Value Reference Range Interpretation [...] S NOT APPLICABLE FOR DIALYSIS PATIEN TS. Sales Enablement Consultant ID - [id number] 07:11:21 Test Item Value Reference Range Interpretation Comments PHOSPHORUS (BEAKER) (test code = 5.0 mg/dL 2.3-4.7 H 604) Sales Enablement Consultant ID - ADMINPROTHROMBIN TIME/[id number] 06:33:50 Test Item Value Reference Range Interpretation Comments PROTIME (BEAKER) 33.3 seconds 11.9-14.2 H (test code = 759) INR (BEAKER) (test 3.30 See_Comment [Automat ed message] code = 370) The system Zo[employer] generated this result transmitted ref erence range: <=5.90. The reference range was not used to int erpret this result as normal/abnormal . RECOMMENDED COUMADIN/WARFARIN INR THERAPY RANGESSTANDARD DOSE: 2.0 - 3.0 Includes: PROPHYLAXIS for venous thrombosis, systemic embolization; TREATMENT for venous thrombosis and/or pulmonary embolus.HIGH RISK: Target INR is 2.5-3.5 for patients with mechanical heart valves.BASIC METABOLIC [id number] 08:17:53 Test Item Value Reference Range Interpretation [...] S NOT APPLICABLE FOR DIALYSIS PATIEN TS. Sales Enablement Consultant ID - ADMINPROTHROMBIN TIME/[id number] 06:12:32 Test Item Value Reference Range Interpretation Comments PROTIME (BEAKER) 35.0 seconds 11.9-14.2 H (test code = 759) INR (BEAKER) (test 3.52 See_Comment [Automat ed message] code = 370) The system Zoond[employer] generated this result transmitted ref erence range: <=5.90. The reference range was not used to int erpret this result as normal/abnormal . RECOMMENDED COUMADIN/WARFARIN INR THERAPY RANGESSTANDARD DOSE: 2.0 - 3.0 Includes: PROPHYLAXIS for venous thrombosis, systemic embolization; TREATMENT for venous thrombosis and/or pulmonary embolus.HIGH RISK: Target INR is 2.5-3.5 for patients with mechanical heart valves.CBC W/PLT COUNT & AUTO [id number] 06:09:25 Test Item Value Reference Range Interpretation [...] (BEAKER) (test code = 2801) HEMOGLOBIN AND [id number] 08:45:35 Test Item Value Reference Range Interpretation Comments HEMOGLOBIN (BEAKER) (test code = 6.7 GM/DL 13.7-17.5 L 410) HEMATOCRIT (BEAKER) (test code = 21.5 % 40.1-51.0 L 411) Sales Enablement Consultant ID - [id number] METABOLIC [id number] 07:38:51 Test Item Value Reference Range Interpretation [...] S NOT APPLICABLE FOR DIALYSIS PATIEN TS. Sales Enablement Consultant ID - GEMINI FPROTHROMBIN TIME/[id number] 07:17:17 Test Item Value Reference Range Interpretation [...] mechanical heart valves.CBC W/PLT COUNT & AUTO [id number] 07:01:38 Test Item Value Reference Range Interpretation [...] PERCENT (BEAKER) (test code = 2801) PROTHROMBIN TIME/[id number] 06:57:22 Test Item Value Reference Range Interpretation Comments PROTIME (BEAKER) 39.4 seconds 11.9-14.2 H (test code = 759) INR (BEAKER) (test 4.08 See_Comment [Automat ed message] code = 370) The system Zo[employer] generated this result transmitted ref erence range: <=5.90. The reference range was not used to int erpret this result as normal/abnormal . RECOMMENDED COUMADIN/WARFARIN INR THERAPY RANGESSTANDARD DOSE: 2.0 - 3.0 Includes: PROPHYLAXIS for venous thrombosis, systemic embolization; TREATMENT for venous thrombosis and/or pulmonary embolus.HIGH RISK: Target INR is 2.5-3.5 for patients with mechanical heart valves.PROTHROMBIN TIME/[id number] 05:52:25 Test Item Value Reference Range Interpretation Comments PROTIME (BEAKER) 36.7 seconds 11.9-14.2 H (test code = 759) INR (BEAKER) (test 3.74 See_Comment [Automat ed message] code = 370) The system Zoond[employer] generated this result transmitted ref erence range: <=5.90. The reference range was not used to int erpret this result as normal/abnormal . RECOMMENDED COUMADIN/WARFARIN INR THERAPY RANGESSTANDARD DOSE: 2.0 - 3.0 Includes: PROPHYLAXIS for venous thrombosis, systemic embolization; TREATMENT for venous thrombosis and/or pulmonary embolus.HIGH RISK: Target INR is 2.5-3.5 for patients with mechanical heart valves.BASIC METABOLIC [id number] 05:13:18 Test Item Value Reference Range Interpretation [...] S NOT APPLICABLE FOR DIALYSIS PATIEN TS. Sales Enablement Consultant ID - VALDEZ MCBC W/PLT COUNT & AUTO [id number] 05:00:45 Test Item Value Reference Range Interpretation [...] PERCENT (BEAKER) (test code = 2801) PROTHROMBIN [id number] 04:50:41 Test Item Value Reference Range Interpretation Comments PROTIME (BEAKER) 32.7 seconds 11.9-14.2 H (test code = 759) INR (BEAKER) (test 3.23 See_Comment [Automat ed message] code = 370) The system Zoond[employer] generated this result transmitted ref erence range: <=5.90. The reference range was not used to int erpret this result as normal/abnormal . RECOMMENDED COUMADIN/WARFARIN INR THERAPY RANGESSTANDARD DOSE: 2.0 - 3.0 Includes: PROPHYLAXIS for venous thrombosis, systemic embolization; TREATMENT for venous thrombosis and/or pulmonary embolus.HIGH RISK: Target INR is 2.5-3.5 for patients with mechanical heart valves.HEPATITIS B [id number] 07:32:34 Test Item Value Reference Range Interpretation Comments HEPATITIS B CORE TOTAL ANTIBODY Nonreactive Nonreactive (BEAKER) (test code = 497) HEPATITIS B SURFACE ANTIBODY 2822.9 mIU/mL <8.0 H (BEAKER) (test code = 647) HEPATITIS B SURFACE ANTIGEN (2) Nonreactive Nonreactive (BEAKER) (test code = 2585) Sales Enablement Consultant ID - EMERSONOperator ID - EMERSONBASIC METABOLIC [id number] 06:32:52 Test Item Value Reference Range Interpretation [...] S NOT APPLICABLE FOR DIALYSIS PATIEN TS. Sales Enablement Consultant ID - JRLPROTHROMBIN TIME/[id number] 05:58:24 Test Item Value Reference Range Interpretation Comments PROTIME (BEAKER) 32.5 seconds 11.9-14.2 H (test code = 759) INR (BEAKER) (test 3.20 See_Comment [Automat ed message] code = 370) The system Zoond[employer] generated this result transmitted ref erence range: <=5.90. The reference range was not used to int erpret this result as normal/abnormal . RECOMMENDED COUMADIN/WARFARIN INR THERAPY RANGESSTANDARD DOSE: 2.0 - 3.0 Includes: PROPHYLAXIS for venous thrombosis, systemic embolization; TREATMENT for venous thrombosis and/or pulmonary embolus.HIGH RISK: Target INR is 2.5-3.5 for patients with mechanical heart valves.CBC W/PLT COUNT & AUTO [id number] 05:52:02 Test Item Value Reference Range Interpretation [...] (BEAKER) (test code = 2801) BASIC METABOLIC [id number] 08:24:48 Test Item Value Reference Range Interpretation [...] S NOT APPLICABLE FOR DIALYSIS PATIEN TS. Sales Enablement Consultant ID - PIAYA LPROTHROMBIN TIME/[id number] 07:16:29 Test Item Value Reference Range Interpretation Comments PROTIME (BEAKER) 28.4 seconds 11.9-14.2 H (test code = 759) INR (BEAKER) (test 2.70 See_Comment [Automat ed message] code = 370) The system Zo[employer] generated this result transmitted ref erence range: <=5.90. The reference range was not used to int erpret this result as normal/abnormal . RECOMMENDED COUMADIN/WARFARIN INR THERAPY RANGESSTANDARD DOSE: 2.0 - 3.0 Includes: PROPHYLAXIS for venous thrombosis, systemic embolization; TREATMENT for venous thrombosis and/or pulmonary embolus.HIGH RISK: Target INR is 2.5-3.5 for patients with mechanical heart valves.CBC W/PLT COUNT & AUTO [id number] 07:11:58 Test Item Value Reference Range Interpretation [...] PERCENT (BEAKER) (test code = 2801) SARS-COV2/RT-PCR ([facility])2021-03-01 11:26:13 Test Item Value Reference Range Interpretation Comments SARS-COV2/RT-PCR (test Negative Not Detected, Negative, code = 6318068) See external report for linked test SARS-COV-2 PERFORMING LAB [facility] (test code = 9120234) Negative result for this test determines that [...] justifying the authorization of the emergency use ofin vitro diagnostic tests for detection and/or diagnosis of COVID-19 is terminated under Section 564(b)(2) of the Act or the EUA is revoked under Section 564(g) of the Act.Fact Sheet for Healthcare Prov iders:https://www.[employer]/sites/default/files/product/documents/Fact_Sheet_HC _Dagsmedaj_Tyvd_CMFG-UoU-5.pdfFact Sheet for Healthcare Patients:https://www.[employer]/sites/default/files/product/docume nts/Lwjs_Kaufn_Ubijtnsr_Khrb_FLKC-YcA-5.pdfPerforming Laboratory:[facility], [place] [address]UJUITHGLBOT TIME/INR 2021-03-01 04:16:38 Test Item Value Reference Range Interpretation Comments PROTIME (BEAKER) 25.5 seconds 11.9-14.2 H (test code = 759) INR (BEAKER) (test 2.35 See_Comment [Automat ed message] code = 370) The system [employer] generated this result transmitted ref erence range: <=5.90. The reference range was not used to int erpret this result as normal/abnormal . RECOMMENDED COUMADIN/WARFARIN INR THERAPY RANGESSTANDARD DOSE: 2.0 - 3.0 Includes: PROPHYLAXIS for venous thrombosis, systemic embolization; TREATMENT for venous thrombosis and/or pulmonary embolus.HIGH RISK: Target INR is 2.5-3.5 for patients with mechanical heart valves.CBC W/PLT COUNT & AUTO [id number] 04:10:26 Test Item Value Reference Range Interpretation [...] PERCENT (BEAKER) (test code = 2801) PROTHROMBIN TIME/[id number] 04:21:23 Test Item Value Reference Range Interpretation Comments PROTIME (BEAKER) 23.9 seconds 11.9-14.2 H (test code = 759) INR (BEAKER) (test 2.17 See_Comment [Automat ed message] code = 370) The system Zo[employer] generated this result transmitted ref erence range: <=5.90. The reference range was not used to int erpret this result as normal/abnormal . RECOMMENDED COUMADIN/WARFARIN INR THERAPY RANGESSTANDARD DOSE: 2.0 - 3.0 Includes: PROPHYLAXIS for venous thrombosis, systemic embolization; TREATMENT for venous thrombosis and/or pulmonary embolus.HIGH RISK: Target INR is 2.5-3.5 for patients with mechanical heart valves.CBC W/PLT COUNT & AUTO [id number] 04:09:33 Test Item Value Reference Range Interpretation [...] (BEAKER) (test code = 2801) BASIC METABOLIC [id number] 05:21:01 Test Item Value Reference Range Interpretation [...] S NOT APPLICABLE FOR DIALYSIS PATIEN TS. Sales Enablement Consultant ID - KT GCBC (HEMOGRAM ONLY)2021-02-27 05:14:08 Test Item Value Reference [...] 0-100 H (BEAKER) (test code = 700) Sales Enablement Consultant ID - ADMINPROTHROMBIN TIME/[id number] 04:56:59 Test Item Value Reference Range Interpretation Comments PROTIME (BEAKER) 22.7 seconds 11.9-14.2 H (test code = 759) INR (BEAKER) (test 2.03 See_Comment [Automat ed message] code = 370) The system Zo[employer] generated this result transmitted ref erence range: <=5.90. The reference range was not used to int erpret this result as normal/abnormal . RECOMMENDED COUMADIN/WARFARIN INR THERAPY RANGESSTANDARD DOSE: 2.0 - 3.0 Includes: PROPHYLAXIS for venous thrombosis, systemic embolization; TREATMENT for venous thrombosis and/or pulmonary embolus.HIGH RISK: Target INR is 2.5-3.5 for patients with mechanical heart valves.PROTHROMBIN TIME/[id number] 15:31:42 Test Item Value Reference Range Interpretation Comments PROTIME (BEAKER) 23.5 seconds 11.9-14.2 H (test code = 759) INR (BEAKER) (test 2.12 See_Comment [Automat ed message] code = 370) The system Zo[employer] generated this result transmitted ref erence range: <=5.90. The reference range was not used to int erpret this result as normal/abnormal . RECOMMENDED COUMADIN/WARFARIN INR THERAPY RANGESSTANDARD DOSE: 2.0 - 3.0 Includes: PROPHYLAXIS for venous thrombosis, systemic embolization; TREATMENT for venous thrombosis and/or pulmonary embolus.HIGH RISK: Target INR is 2.5-3.5 for patients with mechanical heart valves.BLOOD GAS, [id number] 05:16:22 Test Item Value Reference Range Interpretation [...] (test code = 1819) 50.0 COMPREHENSIVE METABOLIC [id number] 23:42:13 Test Item Value Reference Range Interpretation [...] S NOT APPLICABLE FOR DIALYSIS PATIEN TS. Sales Enablement Consultant ID - DBHIGH SENSITIVITY TROPONIN [id number] 23:38:42 Test Item Value Reference Range Interpretation Comments HIGH SENSITIVITY 128 pg/ml See_Comment H [Automated message] TROPONIN I (test code The sy stem which = 2017842) generated this result transmitted ref erence range: <=35. Th e reference range was not used to int erpret this result as normal/abnormal . Sales Enablement Consultant ID - DBThe ANIMAL CYTOLOGIST STAT High Sensitivity Troponin-I results should be used in conjunctionwith other diagnostic information such as ECG, clinical observations and information, and patient symptoms to aid in the diagnosis of MN.LACTIC ACID, [id number] 23:28:44 Test Item Value Reference Range Interpretation Comments LACTATE BLOOD VENOUS 0.82 mmol/L 0.50-2.20 Specime n slightly (2) (BEAKER) (test hemolyzed code = 2872) Sales Enablement Consultant ID - DBCBC W/PLT COUNT & AUTO [id number] 23:13:06 Test Item Value Reference Range Interpretation [...] = 2801) RAD, CHEST, 1 VIEW, NON [id number] 23:11:00Reason for exam:- >hypoxiaShould this be performed at the bedside?->Yes [facility] 1975 Sex: MFINAL REPORT EXAM: Chest one view COMPARISON: February 19, 2021 CLINICAL HISTORY: Hypoxia FINDINGS: Interval Development of bilateral airway opacities are noted which may represent edema versus pneumonitis. The right internal jugular tunneled dialysis catheter appears unchanged in position. There is persistent severe cardiomegaly. There is no evidence of pneumothorax. Bilateral hemidiaphragms are not well seen which may represent effusion. The regional osseous structures are unremarkable. Signed: Kelsie Briones MDReport Verified Date/Time: 02/25/2021 23:11:55 Electronically signedby: KELSIE BRIONES M.D. on 02/25/2021 11:11 [id number] 22:36:53 Test Item Value Reference Range Interpretation Comments POC-GLUCOSE ([facility]) 96 mg/dL 70-110 : TESTE D AT [place] [address] (test code = 1855) [facility], [address]: Sales Enablement Consultant/Techni won ID = [id number] for RUMB AOA, JESUS MANUEL [id number] 22:36:52 Test Item Value Reference Range Interpretation Comments POC-HEMATOCRIT 25 % 40-50 L : Sales Enablement Consultant/Te chnician ID = ([facility]) (test code = 861700 for RUMBAOA, JESUS MANUEL 1857) [id number] 22:36:51 Test Item Value Reference Range Interpretation Comments POC-HEMOGLOBIN 8.5 g/dL 13.0-16.8 L : TESTED AT [place] [address] ([facility]) (test [facility] = [facility]56[facility] [address]: Sales Enablement Consultant/Techni won ID = [id number] for RUMB AOA, JESUS MANUEL [id number] 22:36:50 Test Item Value Reference Range Interpretation Comments POC-SODIUM ([facility]) 135 meq/L 135-148 : TESTED AT [place] [address] (test code = 1542) [facility], [address]: Sales Enablement Consultant/Techni won ID = [id number] for RUMB AOA, JESUS MANUEL [id number] 22:36:50 Test Item Value Reference Range Interpretation Comments POC-POTASSIUM 4.2 meq/L 3.6-5.5 : TESTED AT [place] [address] ([facility]) (test code [facility], = 1540) [address]: Sales Enablement Consultant/Techni won ID = [id number] for RUMB AOA, JESUS MANUEL POCT-BLOOD GASES, [id number] 22:36:49 Test Item Value Reference Range Interpretation Comments TEMP, CELSIUS-POC 97.3 ([facility]) (test code = 1834) FIO2-POC (BEAKER) 50 [...] EXCESS, 1.0 meq/L -2.0-3.0 : TESTED AT [facility] [address] ARTERIAL-POC [facility], (BEAKER) (test code [address]: = 1841) Sales Enablement Consultant/Techni won ID = [id number] for JESUS MANUEL SAENZ CBC W/PLT COUNT & AUTO [id number] 07:09:54 Test Item Value Reference Range Interpretation [...] (BEAKER) (test code = 2801) BASIC METABOLIC [id number] 06:39:44 Test Item Value Reference Range Interpretation [...] S NOT APPLICABLE FOR DIALYSIS PATIEN TS. Sales Enablement Consultant ID - KT GCALCIUM, [id number] 06:23:23 Test Item Value Reference Range Interpretation Comments CALCIUM IONIZED (BEAKER) (test 1.14 mmol/L 1.12-1.27 code = 698) PH, BLOOD (BEAKER) (test code = 7.40 1810) [id number] 06:05:48 Test Item Value Reference Range Interpretation Comments PHOSPHORUS (BEAKER) (test code = 4.7 mg/dL 2.3-4.7 604) Sales Enablement Consultant ID - KT [id number] 06:05:46 Test Item Value Reference Range Interpretation Comments MAGNESIUM (BEAKER) (test code = 2.1 mg/dL 1.6-2.6 627) Sales Enablement Consultant ID - KT GPROTHROMBIN TIME/[id number] 05:51:22 Test Item Value Reference Range Interpretation Comments PROTIME (BEAKER) 21.2 seconds 11.9-14.2 H (test code = 759) INR (BEAKER) (test 1.86 See_Comment [Automat ed message] code = 370) The system Zoondy generated this result transmitted ref erence range: <=5.90. The reference range was not used to int erpret this result as normal/abnormal . RECOMMENDED COUMADIN/WARFARIN INR THERAPY RANGESSTANDARD DOSE: 2.0 - 3.0 Includes: PROPHYLAXIS for venous thrombosis, systemic embolization; TREATMENT for venous thrombosis and/or pulmonary embolus.HIGH RISK: Target INR is 2.5-3.5 for patients with mechanical heart valves.BASIC METABOLIC [id number] 04:44:34 Test Item Value Reference Range Interpretation [...] S NOT APPLICABLE FOR DIALYSIS PATIEN TS. Sales Enablement Consultant ID - KT [id number] 04:43:05 Test Item Value Reference Range Interpretation Comments PHOSPHORUS (BEAKER) (test code = 6.2 mg/dL 2.3-4.7 H 604) Sales Enablement Consultant ID - KT [id number] 04:43:03 Test Item Value Reference Range Interpretation Comments MAGNESIUM (BEAKER) (test code = 2.2 mg/dL 1.6-2.6 627) Sales Enablement Consultant ID - KT GPROTHROMBIN [id number] 04:31:37 Test Item Value Reference Range Interpretation Comments PROTIME (BEAKER) 24.3 seconds 11.9-14.2 H (test code = 759) INR (BEAKER) (test 2.21 See_Comment [Automat ed message] code = 370) The system Zoondy generated this result transmitted ref erence range: <=5.90. The reference range was not used to int erpret this result as normal/abnormal . RECOMMENDED COUMADIN/WARFARIN INR THERAPY RANGESSTANDARD DOSE: 2.0 - 3.0 Includes: PROPHYLAXIS for venous thrombosis, systemic embolization; TREATMENT for venous thrombosis and/or pulmonary embolus.HIGH RISK: Target INR is 2.5-3.5 for patients with mechanical heart valves.CBC W/PLT COUNT & AUTO [id number] 04:30:06 Test Item Value Reference Range Interpretation [...] PERCENT (BEAKER) (test code = 2801) CALCIUM, [id number] 04:16:25 Test Item Value Reference Range Interpretation Comments CALCIUM IONIZED (BEAKER) (test 1.14 mmol/L 1.12-1.27 code = 698) PH, BLOOD (BEAKER) (test code = 7.43 1810) BASIC METABOLIC [id number] 06:34:09 Test Item Value Reference Range Interpretation [...] S NOT APPLICABLE FOR DIALYSIS PATIEN TS. Sales Enablement Consultant ID - KT GCBC W/PLT COUNT & AUTO [id number] 06:34:05 Test Item Value Reference Range Interpretation [...] 0-1 PERCENT (BEAKER) (test code = 2801) [id number] 06:25:36 Test Item Value Reference Range Interpretation Comments MAGNESIUM (BEAKER) (test code = 2.0 mg/dL 1.6-2.6 627) Sales Enablement Consultant ID - KT [id number] 06:25:36 Test Item Value Reference Range Interpretation Comments PHOSPHORUS (BEAKER) (test code = 5.7 mg/dL 2.3-4.7 H 604) Sales Enablement Consultant ID - KT GCALCIUM, [id number] 06:03:49 Test Item Value Reference Range Interpretation Comments CALCIUM IONIZED (BEAKER) (test 1.16 mmol/L 1.12-1.27 code = 698) PH, BLOOD (BEAKER) (test code = 7.37 1810) PROTHROMBIN [id number] 06:02:59 Test Item Value Reference Range Interpretation Comments PROTIME (BEAKER) 29.9 seconds 11.9-14.2 H (test code = 759) INR (BEAKER) (test 2.89 See_Comment [Automat ed message] code = 370) The system Zoondy generated this result transmitted ref erence range: <=5.90. The reference range was not used to int erpret this result as normal/abnormal . RECOMMENDED COUMADIN/WARFARIN INR THERAPY RANGESSTANDARD DOSE: 2.0 - 3.0 Includes: PROPHYLAXIS for venous thrombosis, systemic embolization; TREATMENT for venous thrombosis and/or pulmonary embolus.HIGH RISK: Target INR is 2.5-3.5 for patients with mechanical heart valves.HEPATITIS PANEL, [id number] 13:18:27 Test Item Value Reference Range Interpretation Comments HEPATITIS A IGM ANTIBODY (BEAKER) Nonreactive Nonreactive (test code = 498) HEPATITIS B CORE IGM ANTIBODY Nonreactive Nonreactive (BEAKER) (test code = 645) HEPATITIS C ANTIBODY (BEAKER) Nonreactive Nonreactive (test code = 367) HEPATITIS B SURFACE ANTIGEN (2) Nonreactive Nonreactive (BEAKER) (test code = 2585) Sales Enablement Consultant ID - VALDEZ MBASIC METABOLIC [id number] 06:25:00 Test Item Value Reference Range Interpretation [...] S NOT APPLICABLE FOR DIALYSIS PATIEN TS. Sales Enablement Consultant ID - VALDEZ [id number] 06:02:13 Test Item Value Reference Range Interpretation Comments PHOSPHORUS (BEAKER) 7.5 mg/dL 2.3-4.7 H Specimen slightly (test code = 604) hemolyzed Sales Enablement Consultant ID - VALDEZ [id number] 06:02:12 Test Item Value Reference Range Interpretation Comments MAGNESIUM (BEAKER) 2.2 mg/dL 1.6-2.6 Specimen slightly (test code = 627) hemolyzed Sales Enablement Consultant ID - VALDEZ MCALCIUM, [id number] 05:35:58 Test Item Value Reference Range Interpretation Comments CALCIUM IONIZED (BEAKER) (test 1.12 mmol/L 1.12-1.27 code = 698) PH, BLOOD (BEAKER) (test code = 7.35 1810) CBC W/PLT COUNT & AUTO [id number] 05:09:10 Test Item Value Reference Range Interpretation [...] PERCENT (BEAKER) (test code = 2801) PROTHROMBIN [id number] 05:08:20 Test Item Value Reference Range Interpretation Comments PROTIME (BEAKER) 32.7 seconds 11.9-14.2 H (test code = 759) INR (BEAKER) (test 3.22 See_Comment [Automat ed message] code = 370) The system Zoondy generated this result transmitted ref erence range: <=5.90. The reference range was not used to int erpret this result as normal/abnormal . RECOMMENDED COUMADIN/WARFARIN INR THERAPY RANGESSTANDARD DOSE: 2.0 - 3.0 Includes: PROPHYLAXIS for venous thrombosis, systemic embolization; TREATMENT for venous thrombosis and/or pulmonary embolus.HIGH RISK: Target INR is 2.5-3.5 for patients with mechanical heart valves.PROTHROMBIN [id number] 05:04:40 Test Item Value Reference Range Interpretation Comments PROTIME (BEAKER) 32.1 seconds 11.9-14.2 H (test code = 759) INR (BEAKER) (test 3.15 See_Comment [Automat ed message] code = 370) The system Zoondy generated this result transmitted ref erence range: <=5.90. The reference range was not used to int erpret this result as normal/abnormal . RECOMMENDED COUMADIN/WARFARIN INR THERAPY RANGESSTANDARD DOSE: 2.0 - 3.0 Includes: PROPHYLAXIS for venous thrombosis, systemic embolization; TREATMENT for venous thrombosis and/or pulmonary embolus.HIGH RISK: Target INR is 2.5-3.5 for patients with mechanical heart valves.SARS-COV2/RT-PCR ([facility]) 2021-02-21 20:29:02 Test Item Value Reference Range Interpretation Comments SARS-COV2/RT-PCR (test code = Negative Negative [id number]) Negative result for this test determines that [...] under Section 564(g) of the Act.Testing was performed using Muse SARS-CoV-2 assay.Fact Sheet for Healthcare Providers:https://www.Ampere.avila/jermaine/RT SARS-CoV-2 HCP Fact Sheet 51- 478567.pdfFact Sheet for Healthcare Patients:https://www.molecular.avila/jermaine/RT SARS-CoV-2 Patient Fact Sheet EN 51-330518H1.pdfBASIC METABOLIC [id number] 06:13:04 Test Item Value Reference Range Interpretation [...] S NOT APPLICABLE FOR DIALYSIS PATIEN TS. Sales Enablement Consultant ID - [id number] 05:59:30 Test Item Value Reference Range Interpretation Comments PHOSPHORUS (BEAKER) (test code = 5.6 mg/dL 2.3-4.7 H 604) Sales Enablement Consultant ID - [id number] 05:59:28 Test Item Value Reference Range Interpretation Comments MAGNESIUM (BEAKER) (test code = 2.0 mg/dL 1.6-2.6 627) Sales Enablement Consultant ID - BSCBC W/PLT COUNT & AUTO [id number] 05:39:00 Test Item Value Reference Range Interpretation [...] PERCENT (BEAKER) (test code = 2801) PROTHROMBIN TIME/[id number] 05:38:20 Test Item Value Reference Range Interpretation Comments PROTIME (BEAKER) 37.7 seconds 11.9-14.2 H (test code = 759) INR (BEAKER) (test 3.86 See_Comment [Automat ed message] code = 370) The system Zoondy generated this result transmitted ref erence range: <=5.90. The reference range was not used to int erpret this result as normal/abnormal . RECOMMENDED COUMADIN/WARFARIN INR THERAPY RANGESSTANDARD DOSE: 2.0 - 3.0 Includes: PROPHYLAXIS for venous thrombosis, systemic embolization; TREATMENT for venous thrombosis and/or pulmonary embolus.HIGH RISK: Target INR is 2.5-3.5 for patients with mechanical heart valves.PROTHROMBIN [id number] 05:38:15 Test Item Value Reference Range Interpretation Comments PROTIME (BEAKER) 38.1 seconds 11.9-14.2 H (test code = 759) INR (BEAKER) (test 3.92 See_Comment [Automat ed message] code = 370) The system Zoondy generated this result transmitted ref erence range: <=5.90. The reference range was not used to int erpret this result as normal/abnormal . RECOMMENDED COUMADIN/WARFARIN INR THERAPY RANGESSTANDARD DOSE: 2.0 - 3.0 Includes: PROPHYLAXIS for venous thrombosis, systemic embolization; TREATMENT for venous thrombosis and/or pulmonary embolus.HIGH RISK: Target INR is 2.5-3.5 for patients with mechanical heart valves.CALCIUM, [id number] 05:28:08 Test Item Value Reference Range Interpretation Comments CALCIUM IONIZED (BEAKER) (test 1.12 mmol/L 1.12-1.27 code = 698) PH, BLOOD (BEAKER) (test code = 7.41 1810) PERIPHERAL BLOOD SMEAR - PATHOLOGIST [id number] 14:07:25 Test Item Value Reference Range Interpretation Comments PERIPHERAL SMR Normocytic normochromic REVIEW (BEAKER) anemia with mild (test code = 8860) anisopoikilocytosis and polychromasia. Rare schistocytes (0.6 per HPF). WBCs include predominantly mature granulocytes. Platelets are decreased, no clumping/satellitism seen. [id number] Anita Zamora, 112 (BEAKER) (test M.D code = 6608) RETICULOCYTE [id number] 11:37:09 Test Item Value Reference Range Interpretation Comments RETICULOCYTE COUNT PCT (BEAKER) (test 3.6 % 0.5-1.8 H code = 575) Sales Enablement Consultant ID - [id number], [id number] 08:12:42 Test Item Value Reference Range Interpretation Comments CALCIUM IONIZED (BEAKER) (test 1.12 mmol/L 1.12-1.27 code = 698) PH, BLOOD (BEAKER) (test code = 7.41 1810) CBC W/PLT COUNT & AUTO [id number] 07:49:07 Test Item Value Reference Range Interpretation [...] (BEAKER) (test code = 2801) BASIC METABOLIC [id number] 07:19:01 Test Item Value Reference Range Interpretation [...] S NOT APPLICABLE FOR DIALYSIS PATIEN TS. Sales Enablement Consultant ID - VALDEZ [id number] 07:18:50 Test Item Value Reference Range Interpretation Comments PHOSPHORUS (BEAKER) 5.4 mg/dL 2.3-4.7 H Specimen slightly (test code = 604) hemolyzed Sales Enablement Consultant ID - VALDEZ [id number] 07:18:49 Test Item Value Reference Range Interpretation Comments MAGNESIUM (BEAKER) 2.0 mg/dL 1.6-2.6 Specimen slightly (test code = 627) hemolyzed Sales Enablement Consultant ID - VALDEZ MPROTHROMBIN TIME/[id number] 06:39:12 Test Item Value Reference Range Interpretation Comments PROTIME (BEAKER) 33.7 seconds 11.9-14.2 H (test code = 759) INR (BEAKER) (test 3.35 See_Comment [Automat ed message] code = 370) The system Zoondy generated this result transmitted ref erence range: <=5.90. The reference range was not used to int erpret this result as normal/abnormal . RECOMMENDED COUMADIN/WARFARIN INR THERAPY RANGESSTANDARD DOSE: 2.0 - 3.0 Includes: PROPHYLAXIS for venous thrombosis, systemic embolization; TREATMENT for venous thrombosis and/or pulmonary embolus.HIGH RISK: Target INR is 2.5-3.5 for patients with mechanical heart valves.RAD, CHEST, 1 VIEW, NON [id number] 06:01:00Reason for exam:->intubatedShould this be performed at the bedside?->[facility] 1975 Sex: MFINAL REPORT RAD, CHEST, 1 VIEW, NON DEPT INDICATION: intubated COMPARISON: Prior day's exam FINDINGS: Portable frontal view of the chest. IMPRESSION: Support Lines: Dialysis catheter tip overlies right atrium. Sternotomy wires. Lungs and pleura: Unchanged bilateral airspace opacities c oncerning for multifocal pneumonia versus multifocal edema. No significant pneumothorax. Heart and mediastinum: Stable contours. Additional findings: None. Signed: Re Cantu Verified Date/Time: 02/19/2021 06:01:44 , CHEST, 1 VIEW, NON [id number] 07:41:00Reason for exam:- >intubatedShould this be performed at the bedside?->Yes [facility] 1975 Sex: MFINAL REPORT RAD, CHEST, 1 VIEW, NON DEPT INDICATION: intubated COMPARISON: Prior day's exam FINDINGS: Portable frontal view of the chest. IMPRESSION: Support Lines: Dialysis catheter tip overlies right atrium. Sternotomy wires. Lungs and pleura: Unchanged bilateral airspace opacities c oncerning for multifocal pneumonia versus multifocal edema. No significant pneumothorax. Heart and mediastinum: Stable contours. Additional findings: None. Signed: Re Cantu Verified Date/Time: 02/18/2021 07:41:38 B- TYPE NATRIURETIC FACTOR (BNP)2021-02-18 06:52:03 Test Item Value Reference Range Interpretation Comments B-TYPE NATRIURETIC PEPTIDE 8228 pg/mL 0-100 H (BEAKER) (test code = 700) Sales Enablement Consultant ID - DBOperator ID - DBBASIC METABOLIC [id number] 06:26:54 Test Item Value Reference Range Interpretation [...] S NOT APPLICABLE FOR DIALYSIS PATIEN TS. Sales Enablement Consultant ID - VALDEZ MPROTHROMBIN TIME/[id number] 06:17:35 Test Item Value Reference Range Interpretation Comments PROTIME (BEAKER) 29.3 seconds 11.9-14.2 H (test code = 759) INR (BEAKER) (test 2.80 See_Comment [Automat ed message] code = 370) The system Zoondy generated this result transmitted ref erence range: <=5.90. The reference range was not used to int erpret this result as normal/abnormal . RECOMMENDED COUMADIN/WARFARIN INR THERAPY RANGESSTANDARD DOSE: 2.0 - 3.0 Includes: PROPHYLAXIS for venous thrombosis, systemic embolization; TREATMENT for venous thrombosis and/or pulmonary embolus.HIGH RISK: Target INR is 2.5-3.5 for patients with mechanical heart valves.CBC W/PLT COUNT & AUTO [id number] 06:15:58 Test Item Value Reference Range Interpretation [...] 0-1 PERCENT (BEAKER) (test code = 2801) [id number] 06:10:34 Test Item Value Reference Range Interpretation Comments PHOSPHORUS (BEAKER) (test code = 4.2 mg/dL 2.3-4.7 604) Sales Enablement Consultant ID - VALDEZ [id number] 06:10:33 Test Item Value Reference Range Interpretation Comments MAGNESIUM (BEAKER) (test code = 1.9 mg/dL 1.6-2.6 627) Sales Enablement Consultant ID - VALDEZ MBLOOD GAS, [id number] 05:54:10 Test Item Value Reference Range Interpretation [...] (BEAKER) (test code = 1819) 21.0 CALCIUM, [id number] 05:53:59 Test Item Value Reference Range Interpretation Comments CALCIUM IONIZED (BEAKER) (test 1.14 mmol/L 1.12-1.27 code = 698) PH, BLOOD (BEAKER) (test code = 7.40 1810) VITAMIN B12 AND [id number] 10:29:00 Test Item Value Reference Range Interpretation Comments VITAMIN B12 (BEAKER) 816 pg/mL 213-816 (test code = 774) FOLATE (BEAKER) 8.40 ng/mL See_Comment [Automated message] (test code = 362) The system which generated this result transmitted ref erence range: >=7.00. The reference range was not used to interpr et this result as normal/abnormal . Sales Enablement Consultant ID - TIGRE [facility] METABOLIC [id number] 08:43:00 Test Item Value Reference Range Interpretation [...] S NOT APPLICABLE FOR DIALYSIS PATIEN TS. Sales Enablement Consultant ID - LINA LRAD, CHEST, 1 VIEW, NON [id number] 08:32:00Reason for exam:->intubatedShould this be performed at the bedside?->Yes [facility] 1975 Sex: MFINAL REPORT Chest AP portable Comparison exam: 02/16/2021 History provided: IntubatedDespite history provided, no ET tube is visualized. Heart size magnified by projection. Dialysis catheter in place. Widespread bilateral airspace disease unchanged. Signed: Riky Boone MDReport Verified Date/Time: 02/17/2021 08:32:52 Reading Location: [facility] Radiology Reading Room MAGNESIUM 2021-02-17 07:55:00 Test Item Value Reference Range Interpretation Comments MAGNESIUM (BEAKER) 2.0 mg/dL 1.6-2.6 Specimen slightly (test code = 627) hemolyzed Sales Enablement Consultant ID - LINA [id number] 07:55:00 Test Item Value Reference Range Interpretation Comments PHOSPHORUS (BEAKER) 4.7 mg/dL 2.3-4.7 Specimen slightly (test code = 604) hemolyzed Sales Enablement Consultant ID - LINA LPROTHROMBIN [id number] 06:54:00 Test Item Value Reference Range Interpretation Comments PROTIME (BEAKER) 29.4 seconds 11.9-14.2 H (test code = 759) INR (BEAKER) (test 2.82 See_Comment [Automat ed message] code = 370) The system Zoondy generated this result transmitted ref erence range: <=5.90. The reference range was not used to int erpret this result as normal/abnormal . RECOMMENDED COUMADIN/WARFARIN INR THERAPY RANGESSTANDARD DOSE: 2.0 - 3.0 Includes: PROPHYLAXIS for venous thrombosis, systemic embolization; TREATMENT for venous thrombosis and/or pulmonary embolus.HIGH RISK: Target INR is 2.5-3.5 for patients with mechanical heart valves.CALCIUM, [id number] 06:54:00 Test Item Value Reference Range Interpretation Comments CALCIUM IONIZED (BEAKER) (test 1.16 mmol/L 1.12-1.27 code = 698) PH, BLOOD (BEAKER) (test code = 7.39 1810) CBC W/PLT COUNT & AUTO [id number] 06:53:00 Test Item Value Reference Range Interpretation [...] PERCENT (BEAKER) (test code = 2801) POCT-GLUCOSE [id number] 21:32:00 Test Item Value Reference Range Interpretation Comments POC-GLUCOSE METER 103 mg/dL 70-110 : TESTED A T [facility] 6720 (BEAKER) (test code = [facility], 1538) [id number]: Sales Enablement Consultant/Techni won ID = [id number] for MARÍA AMAYA POCT-GLUCOSE [id number] 16:27:00 Test Item Value Reference Range Interpretation Comments POC-GLUCOSE METER 101 mg/dL 70-110 : TESTED A T [facility] 6720 (BEAKER) (test code = [facility], 1538) 23934: Sales Enablement Consultant/Techni won ID = [id number] for Janelle Katz RAD, ANKLE, MIN 3 VIEWS, [id number] 13:26:00Reason for exam:->Ankle pain [facility] 1975 Sex: MFINAL REPORT CLINICAL HISTORY: Ankle pain TECHNIQUE: Three views of the left ankle COMPARISON: None IMPRESSION: There is diffuse soft tissue swelling throughout the ankle with an ankle joint effusion. There is no evidence for fracture or dislocation. There is a dorsal calcaneal spur. Signed: Melodie Zarateeport Verified Date/Time: 02/16/2021 13:26:52 Reading Location: [facility] Radiology Reading Room POCT-GLUCOSE [id number] 12:24:00 Test Item Value Reference Range Interpretation Comments POC-GLUCOSE METER 97 mg/dL 70-110 : TESTED A T [facility] 6720 (BEAKER) (test code = [facility], 1538) 81639: Sales Enablement Consultant/Techni won ID = [id number] for Janelle Powers BASIC METABOLIC [id number] 12:00:00 Test Item Value Reference Range Interpretation [...] S NOT APPLICABLE FOR DIALYSIS PATIEN TS. Sales Enablement Consultant ID - GEMINI [id number] 11:52:00 Test Item Value Reference Range Interpretation Comments MAGNESIUM (BEAKER) (test code = 1.8 mg/dL 1.6-2.6 627) Sales Enablement Consultant ID - GEMINI [id number] 11:52:00 Test Item Value Reference Range Interpretation Comments PHOSPHORUS (BEAKER) (test code = 4.0 mg/dL 2.3-4.7 604) Sales Enablement Consultant ID - GEMINI FRAD, CHEST, 1 VIEW, NON [id number] 10:51:00Reason for exam:->Pulmonary vascular congestion; ESRD on HDShould this be performed at the bedside?->Yes [facility] 1975 Sex: MFINAL REPORT CLINICAL HISTORY: Pulmonary vascular congestion; ESRD on HD TECHNIQUE:1 view of the chest. COMPARISON: 02/15/2021 IMPRESSION: The right central line is unchanged. Diffuse bilateral airspace opacities appear slightly decreased. A small left pleural effusion is again noted. The cardiomediastinal silhouette is magnified by technique with sternotomy wires. Signed: Jose Zarate MDReport Verified Date/Time: 02/16/2021 10:51:39 Reading Location: [facility] Radiology ReadingRoom POCT-GLUCOSE [id number] 07:52:00 Test Item Value Reference Range Interpretation Comments POC-GLUCOSE METER 100 mg/dL 70-110 : TESTED A T [facility] 6720 (BEAKER) (test code = [facility], 1538) 16371: Sales Enablement Consultant/Techni won ID = [id number] for Janelle Katz CALCIUM, [id number] 06:46:00 Test Item Value Reference Range Interpretation Comments CALCIUM IONIZED (BEAKER) (test 1.14 mmol/L 1.12-1.27 code = 698) PH, BLOOD (BEAKER) (test code = 7.43 1810) PROTHROMBIN [id number] 06:38:00 Test Item Value Reference Range Interpretation Comments PROTIME (BEAKER) 29.2 seconds 11.9-14.2 H (test code = 759) INR (BEAKER) (test 2.80 See_Comment [Automat ed message] code = 370) The system Zoondy generated this result transmitted ref erence range: <=5.90. The reference range was not used to int erpret this result as normal/abnormal . RECOMMENDED COUMADIN/WARFARIN INR THERAPY RANGESSTANDARD DOSE: 2.0 - 3.0 Includes: PROPHYLAXIS for venous thrombosis, systemic embolization; TREATMENT for venous thrombosis and/or pulmonary embolus.HIGH RISK: Target INR is 2.5-3.5 for patients with mechanical heart valves.CBC W/PLT COUNT & AUTO [id number] 06:36:00 Test Item Value Reference Range Interpretation [...] PERCENT (BEAKER) (test code = 2801) PROTHROMBIN [id number] 23:36:00 Test Item Value Reference Range Interpretation Comments PROTIME (BEAKER) 28.8 seconds 11.9-14.2 H (test code = 759) INR (BEAKER) (test 2.74 See_Comment [Automat ed message] code = 370) The system Zoondy generated this result transmitted ref erence range: <=5.90. The reference range was not used to int erpret this result as normal/abnormal . RECOMMENDED COUMADIN/WARFARIN INR THERAPY RANGESSTANDARD DOSE: 2.0 - 3.0 Includes: PROPHYLAXIS for venous thrombosis, systemic embolization; TREATMENT for venous thrombosis and/or pulmonary embolus.HIGH RISK: Target INR is 2.5-3.5 for patients with mechanical heart valves.HEMOGLOBIN AND [id number] 23:26:00 Test Item Value Reference Range Interpretation Comments HEMOGLOBIN (BEAKER) (test code = 6.9 GM/DL 13.7-17.5 L 410) HEMATOCRIT (BEAKER) (test code = 21.4 % 40.1-51.0 L 411) Sales Enablement Consultant ID - [id number]-GLUCOSE [id number] 12:19:00 Test Item Value Reference Range Interpretation Comments POC-GLUCOSE METER 123 mg/dL 70-110 H : TESTED A T [facility] 6720 (BEAKER) (test code [facility] [place], = 1538) 21522: Sales Enablement Consultant/Techni won ID = [id number] for Maikel robledo (contract), Syt damien RAD, CHEST, 1 VIEW, NON [id number] 07:27:00Reason for exam:->Pulmonary vascular congestion; ESRD on HDShould this be performed at the bedside?->Yes [facility] 1975 Sex: MFINAL REPORT CLINICAL HISTORY: Pulmonary vascular congestion; ESRD on HD TECHNIQUE: 1 view of the chest. COMPARISON: 02/14/2021 IMPRESSION: The right central line is unchanged. Diffuse bilateral airspace opacities appear slightly increased. Small pleural effusions cannot be excluded. Cardiomegaly is again seen poststernotomy with valvular repair. Signed: Melodie Zarate Verified Date/Time: 02/15/2021 07:27:43 Reading Location: [facility] Radiology Reading Room BASIC METABOLIC [id number] 06:32:00 Test Item Value Reference Range Interpretation [...] S NOT APPLICABLE FOR DIALYSIS PATIEN TS. Sales Enablement Consultant ID - PIAYA [id number] 06:31:00 Test Item Value Reference Range Interpretation Comments MAGNESIUM (BEAKER) (test code = 1.7 mg/dL 1.6-2.6 627) Sales Enablement Consultant ID - PIAYA [id number] 06:31:00 Test Item Value Reference Range Interpretation Comments PHOSPHORUS (BEAKER) (test code = 3.6 mg/dL 2.3-4.7 604) Sales Enablement Consultant ID - PIAYA LCBC W/PLT COUNT & AUTO [id number] 06:22:00 Test Item Value Reference Range Interpretation [...] PERCENT (BEAKER) (test code = 2801) CALCIUM, [id number] 06:13:00 Test Item Value Reference Range Interpretation Comments CALCIUM IONIZED (BEAKER) (test 1.18 mmol/L 1.12-1.27 code = 698) PH, BLOOD (BEAKER) (test code = 7.41 1810) SARS-COV2/RT-PCR ([facility])2021-02-15 02:44:00 Test Item Value Reference Range Interpretation Comments SARS-COV2/RT-PCR (test code = Negative Negative [id number]) Negative result for this test determines that [...] under Section 564(g) of the Act.Testing was performed using Muse SARS-CoV-2 assay.Fact Sheet for Healthcare Providers:https://www.Ampere.avila/jermaine/RT SARS-CoV-2 HCP Fact Sheet 51- 538934.pdfFact Sheet for Healthcare Patients:https://www.molecular.avila/jermaine/RT SARS-CoV-2 Patient Fact Sheet EN 51-980302L8.pdfBASIC METABOLIC [id number] 23:48:00 Test Item Value Reference Range Interpretation [...] S NOT APPLICABLE FOR DIALYSIS PATIEN TS. Sales Enablement Consultant ID - PIAYA [id number] 23:39:00 Test Item Value Reference Range Interpretation Comments MAGNESIUM (BEAKER) 2.0 mg/dL 1.6-2.6 Specimen slightly (test code = 627) hemolyzed Sales Enablement Consultant ID - PIAYA [id number] 23:39:00 Test Item Value Reference Range Interpretation Comments PHOSPHORUS (BEAKER) 6.0 mg/dL 2.3-4.7 H Specimen slightly (test code = 604) hemolyzed Sales Enablement Consultant ID - PIRAFY LPOCT-GLUCOSE [id number] 18:16:00 Test Item Value Reference Range Interpretation Comments POC-GLUCOSE METER 130 mg/dL 70-110 H : TESTED A T [facility] 6720 (BEAKER) (test code = RAYMONJOBY SHULTZ [place], 1538) [address]: Sales Enablement Consultant/Techni won ID = [id number] for Da vis, Paige RAD, CHEST, 1 VIEW, NON [id number] 08:33:00Reason for exam:->Pulmonary vascular congestion; ESRD on HDShould this be performed at the bedside?->Yes [facility] 1975 Sex: MFINAL REPORT RAD, CHEST, 1 VIEW, NON DEPT TECHNIQUE: Frontal view(s) of the chest. INDICATION: Pulmonary vascular congestion; ESRD on HD. COMPARISON: Chest radiograph one day prior FINDINGS/IMPRESSION: Lines/Tubes: Unchanged Lungs/pleura: Mid to lower lung predominant airspace opacities bilaterally have partially improved since 02/13/2021. No definite pleural effusion. No pneumothorax. Heart and Mediastinum: Unchanged. Soft Tissues and Bones: Unchanged. Signed: Delano Castro Verified Date/Time: 02/14/2021 08:33:43 Reading Location: [facility] Diagnostic Imaging Reading [place] [address] HEPATITIS B SURFACE [id number] 07:31:00 Test Item Value Reference Range Interpretation Comments HEPATITIS B SURFACE ANTIGEN (2) Nonreactive Nonreactive (BEAKER) (test code = 2585) Specimen is considered negative for HBsAg.BASIC METABOLIC [id number] 06:29:00 Test Item Value Reference Range Interpretation [...] S NOT APPLICABLE FOR DIALYSIS PATIEN TS. Sales Enablement Consultant ID - VALDEZ [id number] 06:12:00 Test Item Value Reference Range Interpretation Comments MAGNESIUM (BEAKER) (test code = 1.9 mg/dL 1.6-2.6 627) Sales Enablement Consultant ID - VALDEZ [id number] 06:12:00 Test Item Value Reference Range Interpretation Comments PHOSPHORUS (BEAKER) (test code = 4.1 mg/dL 2.3-4.7 604) Sales Enablement Consultant ID - VALDEZ MPROTHROMBIN TIME/[id number] 06:07:00 Test Item Value Reference Range Interpretation Comments PROTIME (BEAKER) 24.0 seconds 11.9-14.2 H (test code = 759) INR (BEAKER) (test 2.17 See_Comment [Automat ed message] code = 370) The system Zoondy generated this result transmitted ref erence range: <=5.90. The reference range was not used to int erpret this result as normal/abnormal . RECOMMENDED COUMADIN/WARFARIN INR THERAPY RANGESSTANDARD DOSE: 2.0 - 3.0 Includes: PROPHYLAXIS for venous thrombosis, systemic embolization; TREATMENT for venous thrombosis and/or pulmonary embolus.HIGH RISK: Target INR is 2.5-3.5 for patients with mechanical heart valves.CBC W/PLT COUNT & AUTO [id number] 05:56:00 Test Item Value Reference Range Interpretation [...] (BEAKER) (test code = 2801) BLOOD GAS, [id number] 05:49:00 Test Item Value Reference Range Interpretation [...] (BEAKER) (test code = 1819) 40.0 CALCIUM, [id number] 05:48:00 Test Item Value Reference Range Interpretation Comments CALCIUM IONIZED (BEAKER) (test 1.12 mmol/L 1.12-1.27 code = 698) PH, BLOOD (BEAKER) (test code = 7.41 1810) BASIC METABOLIC [id number] 04:12:00 Test Item Value Reference Range Interpretation [...] S NOT APPLICABLE FOR DIALYSIS PATIEN TS. Sales Enablement Consultant ID - VALDEZ MOperator ID - PIAYA LPROTHROMBIN TIME/[id number] 03:42:00 Test Item Value Reference Range Interpretation Comments PROTIME (BEAKER) 25.4 seconds 11.9-14.2 H (test code = 759) INR (BEAKER) (test 2.34 See_Comment [Automat ed message] code = 370) The system Zoondy generated this result transmitted ref erence range: <=5.90. The reference range was not used to int erpret this result as normal/abnormal . RECOMMENDED COUMADIN/WARFARIN INR THERAPY RANGESSTANDARD DOSE: 2.0 - 3.0 Includes: PROPHYLAXIS for venous thrombosis, systemic embolization; TREATMENT for venous thrombosis and/or pulmonary embolus.HIGH RISK: Target INR is 2.5-3.5 for patients with mechanical heart valves.[id number] 03:40:00 Test Item Value Reference Range Interpretation Comments MAGNESIUM (BEAKER) (test code = 2.0 mg/dL 1.6-2.6 627) Sales Enablement Consultant ID - LINA [id number] 03:19:00 Test Item Value Reference Range Interpretation Comments PHOSPHORUS (BEAKER) (test code = 7.9 mg/dL 2.3-4.7 H 604) Sales Enablement Consultant ID - VALDEZ MCBC W/PLT COUNT & AUTO [id number] 03:06:00 Test Item Value Reference Range Interpretation [...] (BEAKER) (test code = 2801) BLOOD GAS, [id number] 03:01:00 Test Item Value Reference Range Interpretation [...] (BEAKER) (test code = 1819) 100.0 CALCIUM, [id number] 03:01:00 Test Item Value Reference Range Interpretation Comments CALCIUM IONIZED (BEAKER) (test 1.12 mmol/L 1.12-1.27 code = 698) PH, BLOOD (BEAKER) (test code = 7.35 1810) RAD, CHEST, 1 VIEW, NON [id number] 23:28:00Reason for exam:->assess volume statusShould this be performed at the bedside?->Yes [facility] 1975 Sex: MFINAL REPORT RAD, CHEST, 1 VIEW, NON DEPT INDICATION: assess volume status COMPARISON: Prior day's exam FINDINGS: Portable frontal view of the chest. IMPRESSION: Support Lines: Stable.Lungs and pleura: Unchanged moderately extensive bilateral hazy airspace opacities compatible with edema and left pleural effusion. No pneumothorax.Heart and mediastinum: Stable contours.Additional findings: None. Signed: Sharon Krishnanell[facility] Verified Date/Time: 02/13/2021 23:28:46 RAD, CHEST, 1 VIEW, NON [id number] 23:20:00Reason for exam:->difficulty of breathingShould this be performed at the bedside?->[facility] : 1975 Sex: MFINAL REPORT RAD, CHEST, 1 VIEW, NON DEPT INDICATION: difficulty of breathing COMPARISON: Exam from two hours prior FINDINGS: Portable frontal view of the chest. IMPRESSION: Support Lines: Stable. Lungs and pleura: There are increasing bilateral airspace opacities compatible with worsening edema or pneumonia. Small to moderate bilateral pleural effusions are likely present. No pneumothorax.Heart and mediastinum: Stable contours and postsurgical changes.Additional findings: None. Signed: Sharon Krishnan MDReport Verified Date/Time: 02/13/2021 23:20:13 POCT-BLOOD GASES, [id number] 23:09:00 Test Item Value Reference Range Interpretation [...] EXCESS, -1.0 meq/L -2.0-3.0 : TESTED AT [facility] 6720 ARTERIAL-POC [facility], (BEAKER) (test code [address]: = 1841) Sales Enablement Consultant/Techni won ID = [id number] for SUBI A, ARGELIA [id number] 23:09:00 Test Item Value Reference Range Interpretation Comments POC-SODIUM (BEAKER) 135 meq/L 135-148 : TESTED AT [facility] 6720 (test code = 1542) [facility], [address]: Sales Enablement Consultant/Techni won ID = [id number] for SUBI A, ARGELIA [id number] 23:09:00 Test Item Value Reference Range Interpretation Comments POC-POTASSIUM 5.7 meq/L 3.6-5.5 H : TESTED AT [place] [address] ([facility]) (test code [facility], = 1540) [address]: Sales Enablement Consultant/Techni won ID = [id number] for SUBI A, ARGELIA [id number] 23:09:00 Test Item Value Reference Range Interpretation Comments POC-HEMOGLOBIN 9.5 g/dL 13.0-16.8 L : TESTED AT [place] [address] ([facility]) (test code = [facility], 1856) [address]: Sales Enablement Consultant/Techni won ID = [id number] for SUBI A, ARGELIA [id number] 23:09:00 Test Item Value Reference Range Interpretation Comments POC-HEMATOCRIT 28 % 40-50 L : Sales Enablement Consultant/Te chnician ID = ([facility]) (test code = 073331 for JORDANARGELIA 1857) [id number] 23:09:00 Test Item Value Reference Range Interpretation Comments POC-GLUCOSE ([facility]) 97 mg/dL 70-110 : TESTE D AT [place] [address] (test code = 1855) [facility], [address]: Sales Enablement Consultant/Techni won ID = [id number] for SUBI A, ARGELIA POCT-GLUCOSE [id number] 22:30:00 Test Item Value Reference Range Interpretation Comments POC-GLUCOSE METER 102 mg/dL 70-110 : TESTED A T [place] [address] ([facility]) (test code = [facility], 1538) [address]: Sales Enablement Consultant/Techni won ID = [id number] for DE NNIS, FRED POCT-GLUCOSE [id number] 17:26:00 Test Item Value Reference Range Interpretation Comments POC-GLUCOSE METER 85 mg/dL 70-110 : TESTED A T [place] [address] ([facility]) (test code [facility], = 1538) [address]: Sales Enablement Consultant/Techni wno ID = [id number] for EVANGELIST SHAHIDA BASIC METABOLIC [id number] 07:01:00 Test Item Value Reference Range Interpretation Comments SODIUM ([facility]) 135 meq/L 136-145 L (test code = [...] S NOT APPLICABLE FOR DIALYSIS PATIEN TS. Sales Enablement Consultant ID - KENNETH [id number] 06:57:00 Test Item Value Reference Range Interpretation Comments MAGNESIUM (BEAKER) (test code = 2.0 mg/dL 1.6-2.6 627) Sales Enablement Consultant ID - KENNETH [id number] 06:57:00 Test Item Value Reference Range Interpretation Comments PHOSPHORUS (BEAKER) (test code = 6.2 mg/dL 2.3-4.7 H 604) Sales Enablement Consultant ID Doretha COOPER WPROTHROMBIN TIME/[id number] 06:18:00 Test Item Value Reference Range Interpretation Comments PROTIME (BEAKER) 25.8 seconds 11.9-14.2 H (test code = 759) INR (BEAKER) (test 2.39 See_Comment [Automat ed message] code = 370) The system Zoondy generated this result transmitted ref erence range: <=5.90. The reference range was not used to int erpret this result as normal/abnormal . RECOMMENDED COUMADIN/WARFARIN INR THERAPY RANGESSTANDARD DOSE: 2.0 - 3.0 Includes: PROPHYLAXIS for venous thrombosis, systemic embolization; TREATMENT for venous thrombosis and/or pulmonary embolus.HIGH RISK: Target INR is 2.5-3.5 for patients with mechanical heart valves.CALCIUM, [id number] 06:05:00 Test Item Value Reference Range Interpretation Comments CALCIUM IONIZED (BEAKER) (test 1.17 mmol/L 1.12-1.27 code = 698) PH, BLOOD (BEAKER) (test code = 7.39 1810) CBC W/PLT COUNT & AUTO [id number] 05:52:00 Test Item Value Reference Range Interpretation [...] PERCENT (BEAKER) (test code = 2801) POCT-GLUCOSE [id number] 20:40:00 Test Item Value Reference Range Interpretation Comments POC-GLUCOSE METER 94 mg/dL 70-110 : Notified RN/MD: TESTED (BEAKER) (test code = AT [facility] 67[address] [facility] 1538) [facility] [place], [address]: Sales Enablement Consultant/Techni won ID = [id number] for MICHELLE DAMIAN POCT-GLUCOSE [id number] 18:06:00 Test Item Value Reference Range Interpretation Comments POC-GLUCOSE METER 114 mg/dL 70-110 H : TESTED A T [facility] 6720 (BEAKER) (test code = [facility], 1538) [address]: Sales Enablement Consultant/Techni won ID = [id number] for Kendy Sparrow HEMOGLOBIN AND [id number] 13:01:00 Test Item Value Reference Range Interpretation Comments HEMOGLOBIN (BEAKER) (test code = 8.7 GM/DL 13.7-17.5 L 410) HEMATOCRIT (BEAKER) (test code = 27.0 % 40.1-51.0 L 411) Sales Enablement Consultant ID - 6000POCT-GLUCOSE [id number] 11:48:00 Test Item Value Reference Range Interpretation Comments POC-GLUCOSE METER 96 mg/dL 70-110 : TESTED A T [facility] 6720 (BEAKER) (test code = [facility], 1538) [address]: Sales Enablement Consultant/Techni won ID = [id number] for Bent on, Gladys [id number] 10:57:00 Test Item Value Reference Range Interpretation Comments HAPTOGLOBIN (BEAKER) (test code = < mg/dL 14-258 L 366) Sales Enablement Consultant ID - AAHAMIDPLASMA FREE [id number] 10:29:00 Test Item Value Reference Range Interpretation Comments HEMOGLOBIN PLASMA (BEAKER) (test 20.0 mg/dl 0.0-30.0 code = 1054) HEPATIC FUNCTION [id number] 10:21:00 Test Item Value Reference Range Interpretation [...] (test code = 42 U/L 6-55 347) Sales Enablement Consultant ID - KENNETH WOOD, CHEST, 1 VIEW, NON [id number] 07:07:00Reason for exam:->intubatedShould this be performed at the bedside?->Yes [facility] 1975 Sex: MFINAL REPORT RAD, CHEST, 1 VIEW, NON DEPT INDICATION: intubated COMPARISON: Prior day's exam FINDINGS: Portable frontal view of the chest. IMPRESSION: Support Lines: Dialysis catheter tip overlies right atrium. Lungs and pleura: Bilateral lower lobe airspace disease is increased compared to prior exam concerning for worsening volume overload, or, possibly, worsening infection. Lungs are again hypoinflated. No significant pneumothorax. Heart and mediastinum: Stable contours. Additional findings: None. Signed: Re Cantu MDReport Verified Date/Time: 02/12/2021 07:07:38 LACTATE DEHYDROGENASE (LDH) 2021-02-12 06:46:00 Test Item Value Reference Range Interpretation Comments LACTATE DEHYDROGENASE (BEAKER) (test 444 U/L 125-220 H code = 635) Sales Enablement Consultant ID - KENNETH WBASIC METABOLIC [id number] 05:03:00 Test Item Value Reference Range Interpretation [...] S NOT APPLICABLE FOR DIALYSIS PATIEN TS. Sales Enablement Consultant ID - KENNETH [id number] 04:57:00 Test Item Value Reference Range Interpretation Comments MAGNESIUM (BEAKER) (test code = 2.1 mg/dL 1.6-2.6 627) Sales Enablement Consultant ID - KENNETH [id number] 04:57:00 Test Item Value Reference Range Interpretation Comments PHOSPHORUS (BEAKER) (test code = 7.1 mg/dL 2.3-4.7 H 604) Sales Enablement Consultant ID - KENNETH WCALCIUM, [id number] 04:35:00 Test Item Value Reference Range Interpretation Comments CALCIUM IONIZED (BEAKER) (test 1.09 mmol/L 1.12-1.27 L code = 698) PH, BLOOD (BEAKER) (test code = 7.37 1810) PROTHROMBIN [id number] 04:31:00 Test Item Value Reference Range Interpretation Comments PROTIME (BEAKER) 22.9 seconds 11.9-14.2 H (test code = 759) INR (BEAKER) (test 2.05 See_Comment [Automat ed message] code = 370) The system Zoondy generated this result transmitted ref erence range: <=5.90. The reference range was not used to int erpret this result as normal/abnormal . RECOMMENDED COUMADIN/WARFARIN INR THERAPY RANGESSTANDARD DOSE: 2.0 - 3.0 Includes: PROPHYLAXIS for venous thrombosis, systemic embolization; TREATMENT for venous thrombosis and/or pulmonary embolus.HIGH RISK: Target INR is 2.5-3.5 for patients with mechanical heart valves.CBC W/PLT COUNT & AUTO [id number] 04:20:00 Test Item Value Reference Range Interpretation [...] PERCENT (BEAKER) (test code = 2801) POCT-GLUCOSE [id number] 21:06:00 Test Item Value Reference Range Interpretation Comments POC-GLUCOSE METER 108 mg/dL 70-110 : TESTED A T [facility] 6720 (BEAKER) (test code [facility], = 1538) [address]: Sales Enablement Consultant/Techni won ID = [id number] for Moni szymanski (contract)Rola faustino LACTATE DEHYDROGENASE (LDH)2021-02-11 10:34:00 Test Item Value Reference Range Interpretation Comments LACTATE DEHYDROGENASE (BEAKER) (test 559 U/L 125-220 H code = 635) Sales Enablement Consultant ID - AAHAMIDPOCT-GLUCOSE [id number] 07:41:00 Test Item Value Reference Range Interpretation Comments POC-GLUCOSE METER 86 mg/dL 70-110 : TESTED A T [facility] 6720 (BEAKER) (test code = [facility], 1538) [address]: Sales Enablement Consultant/Techni won ID = [id number] for COSME NORMAN BASIC METABOLIC [id number] 06:26:00 Test Item Value Reference Range Interpretation [...] S NOT APPLICABLE FOR DIALYSIS PATIEN TS. Sales Enablement Consultant ID - [id number] 06:07:00 Test Item Value Reference Range Interpretation Comments MAGNESIUM (BEAKER) (test code = 2.0 mg/dL 1.6-2.6 627) Sales Enablement Consultant ID - [id number] 06:07:00 Test Item Value Reference Range Interpretation Comments PHOSPHORUS (BEAKER) (test code = 6.1 mg/dL 2.3-4.7 H 604) Sales Enablement Consultant ID - DBRAD, CHEST, 1 VIEW, NON [id number] 05:49:00Reason for exam:- >intubatedShould this be performed at the bedside?->Yes [facility] 1975 Sex: MFINAL REPORT RAD, CHEST, 1 VIEW, NON DEPT INDICATION: intubated COMPARISON: Prior day's exam FINDINGS: Portable frontal view of the chest. IMPRESSION: Support Lines: Dialysis catheter tip overlies right atrium. Sternotomy wires. Lungs and pleura: Obscuration of left hemidiaphragm concerning for small effusion. Unchanged bilateral airspace disease. No significant pneumothorax. Heart and mediastinum: Stable contours. Additional findings: None. Signed: Re Cantu Verified Date/Time: 02/11/2021 05:49:15 CBC W/PLT COUNT & AUTO [id number] 05:29:00 Test Item Value Reference Range Interpretation [...] PERCENT (BEAKER) (test code = 2801) POCT-GLUCOSE [id number] 21:00:00 Test Item Value Reference Range Interpretation Comments POC-GLUCOSE METER 137 mg/dL 70-110 H : TESTED A T [facility] 6720 (BEAKER) (test code = [facility], 1538) [address]: Sales Enablement Consultant/Techni won ID = [id number] for Manuelito Chavez BASIC METABOLIC [id number] 17:01:00 Test Item Value Reference Range Interpretation [...] S NOT APPLICABLE FOR DIALYSIS PATIEN TS. Sales Enablement Consultant ID - [id number] 17:00:00 Test Item Value Reference Range Interpretation Comments POTASSIUM (BEAKER) (test code = 4.2 meq/L 3.5-5.1 379) [id number] 17:00:00 Test Item Value Reference Range Interpretation Comments MAGNESIUM (BEAKER) (test code = 2.0 mg/dL 1.6-2.6 627) Sales Enablement Consultant ID - DBLACTATE DEHYDROGENASE (LDH)2021-02-10 17:00:00 Test Item Value Reference Range Interpretation Comments LACTATE DEHYDROGENASE (BEAKER) (test 506 U/L 125-220 H code = 635) Sales Enablement Consultant ID - DBCBC W/PLT COUNT & AUTO [id number] 16:38:00 Test Item Value Reference Range Interpretation [...] PERCENT (BEAKER) (test code = 2801) POCT-GLUCOSE [id number] 14:15:00 Test Item Value Reference Range Interpretation Comments POC-GLUCOSE METER 135 mg/dL 70-110 H : TESTED A T [facility] 6720 (BEAKER) (test code = NORM Tenorio [facility] [place], 1538) [address]: Sales Enablement Consultant/Techni won ID = [id number] for Paige Russell [id number] 11:35:00 Test Item Value Reference Range Interpretation Comments PREALBUMIN (BEAKER) (test code = 20 mg/dL 14-45 586) Sales Enablement Consultant ID - DBC-REACTIVE [id number] 10:53:00 Test Item Value Reference Range Interpretation Comments C-REACTIVE PROTEIN (BEAKER) (test 2.09 mg/dL 0.00-0.50 H code = 676) Sales Enablement Consultant ID - DBRAD, CHEST, 1 VIEW, NON [id number] 07:13:00Reason for exam:- >intubatedShould this be performed at the bedside?->Yes [facility] 1975 Sex: MFINAL REPORT RAD, CHEST, 1 VIEW, NON DEPT INDICATION: intubated COMPARISON: Prior day's exam FINDINGS: Portable frontal view of the chest. IMPRESSION: Support Lines: Stable. Lungs and pleura: Unchanged interstitial, airspace, and pleural opacities. No pneumothorax.Heart and mediastinum: Stable contours. Stable surgical changes.Additional findings: None. Signed: JR Tate Robert MDReport Verified Date/Time: 02/10/2021 07:13:47 Reading Location: [facility] Radiology Reading Room CALCIUM, [id number] 03:42:00 Test Item Value Reference Range Interpretation Comments CALCIUM IONIZED (BEAKER) (test 1.24 mmol/L 1.12-1.27 code = 698) PH, BLOOD (BEAKER) (test code = 7.40 1810) BASIC METABOLIC [id number] 03:33:00 Test Item Value Reference Range Interpretation [...] S NOT APPLICABLE FOR DIALYSIS PATIEN TS. Sales Enablement Consultant ID - KENNETH [id number] 03:32:00 Test Item Value Reference Range Interpretation Comments MAGNESIUM (BEAKER) (test code = 2.3 mg/dL 1.6-2.6 627) Sales Enablement Consultant ID - KENNETH [id number] 03:32:00 Test Item Value Reference Range Interpretation Comments PHOSPHORUS (BEAKER) (test code = 7.1 mg/dL 2.3-4.7 H 604) Sales Enablement Consultant ID - KENNETH WPROTHROMBIN [id number] 03:31:00 Test Item Value Reference Range Interpretation Comments PROTIME (BEAKER) 18.9 seconds 11.9-14.2 H (test code = 759) INR (BEAKER) (test 1.61 See_Comment [Automat ed message] code = 370) The system Zoondy generated this result transmitted ref erence range: <=5.90. The reference range was not used to int erpret this result as normal/abnormal . RECOMMENDED COUMADIN/WARFARIN INR THERAPY RANGESSTANDARD DOSE: 2.0 - 3.0 Includes: PROPHYLAXIS for venous thrombosis, systemic embolization; TREATMENT for venous thrombosis and/or pulmonary embolus.HIGH RISK: Target INR is 2.5-3.5 for patients with mechanical heart valves.CBC W/PLT COUNT & AUTO [id number] 03:17:00 Test Item Value Reference Range Interpretation [...] PERCENT (BEAKER) (test code = 2801) POCT-GLUCOSE [id number] 22:04:00 Test Item Value Reference Range Interpretation Comments POC-GLUCOSE METER 125 mg/dL 70-110 H : TESTED A T [facility] 6720 (BEAKER) (test code = [place], 1538) [address]: Sales Enablement Consultant/Techni won ID = [id number] for September POCT-GLUCOSE [id number] 16:29:00 Test Item Value Reference Range Interpretation Comments POC-GLUCOSE METER 112 mg/dL 70-110 H : TESTED A T [facility] 6720 (BEAKER) (test code = [facility], 1538) [address]: Sales Enablement Consultant/Techni won ID = [id number] for THOMAS BRYANT POCT-GLUCOSE [id number] 11:26:00 Test Item Value Reference Range Interpretation Comments POC-GLUCOSE METER 97 mg/dL 70-110 : TESTED A T [facility] 6720 (BEAKER) (test code = [facility], 1538) [address]: Sales Enablement Consultant/Techni won ID = [id number] for MARSHALL STEVENSELLA POCT-GLUCOSE [id number] 07:49:00 Test Item Value Reference Range Interpretation Comments POC-GLUCOSE METER 82 mg/dL 70-110 : TESTED A T [facility] 6720 (BEAKER) (test code = [facility], 1538) [address]: Sales Enablement Consultant/Techni won ID = [id number] for DIPESH Montoya, THOMAS BASIC METABOLIC [id number] 05:07:00 Test Item Value Reference Range Interpretation [...] S NOT APPLICABLE FOR DIALYSIS PATIEN TS. Sales Enablement Consultant ID - VALDEZ [id number] 05:01:00 Test Item Value Reference Range Interpretation Comments MAGNESIUM (BEAKER) (test code = 2.2 mg/dL 1.6-2.6 627) Sales Enablement Consultant ID - VALDEZ [id number] 05:01:00 Test Item Value Reference Range Interpretation Comments PHOSPHORUS (BEAKER) (test code = 5.4 mg/dL 2.3-4.7 H 604) Sales Enablement Consultant SHELBI COFFMANLCIUM, [id number] 04:47:00 Test Item Value Reference Range Interpretation Comments CALCIUM IONIZED (BEAKER) (test 1.22 mmol/L 1.12-1.27 code = 698) PH, BLOOD (BEAKER) (test code = 7.42 1810) PROTHROMBIN TIME/[id number] 04:38:00 Test Item Value Reference Range Interpretation Comments PROTIME (BEAKER) 18.8 seconds 11.9-14.2 H (test code = 759) INR (BEAKER) (test 1.60 See_Comment [Automat ed message] code = 370) The system Zoondy generated this result transmitted ref erence range: <=5.90. The reference range was not used to int erpret this result as normal/abnormal . RECOMMENDED COUMADIN/WARFARIN INR THERAPY RANGESSTANDARD DOSE: 2.0 - 3.0 Includes: PROPHYLAXIS for venous thrombosis, systemic embolization; TREATMENT for venous thrombosis and/or pulmonary embolus.HIGH RISK: Target INR is 2.5-3.5 for patients with mechanical heart valves.CBC W/PLT COUNT & AUTO [id number] 04:30:00 Test Item Value Reference Range Interpretation [...] = 2801) RAD, CHEST, 1 VIEW, NON [id number] 04:04:00Reason for exam:- >intubatedShould this be performed at the bedside?->Yes [facility] 1975 Sex: MFINAL REPORT RAD, CHEST, 1 VIEW, NON DEPT INDICATION: intubated COMPARISON: Prior day's exam FINDINGS: Portable frontal view of the chest. IMPRESSION: Support Lines: Stable. Lungs and pleura: Unchanged bilateral airspace and pleural opacities. No pneumothorax.Heart and mediastinum: Stable contours and postsurgical changes.Additional findings: None. Signed: Sharon Krishnanepting Verified Date/Time: 02/09/2021 04:04:14 POCT-GLUCOSE [id number] 22:18:00 Test Item Value Reference Range Interpretation Comments POC-GLUCOSE METER 98 mg/dL 70-110 : TESTED A T [facility] 6720 (BEAKER) (test code = [facility], 1538) [id number]: Sales Enablement Consultant/Techni won ID = [id number] for MESERET September [id number] 19:37:00 Test Item Value Reference Range Interpretation Comments MAGNESIUM (BEAKER) 1.9 mg/dL 1.6-2.6 Specimen slightly (test code = 627) hemolyzed Sales Enablement Consultant ID - BSHEMOGLOBIN AND [id number] 19:16:00 Test Item Value Reference Range Interpretation Comments HEMOGLOBIN (BEAKER) (test code = 8.3 GM/DL 13.7-17.5 L 410) HEMATOCRIT (BEAKER) (test code = 24.9 % 40.1-51.0 L 411) Sales Enablement Consultant ID - [id number]-GLUCOSE [id number] 17:27:00 Test Item Value Reference Range Interpretation Comments POC-GLUCOSE METER 82 mg/dL 70-110 : TESTED A T [facility] 6720 (BEAKER) (test code = [facility], 1538) 984[address]: Sales Enablement Consultant/Techni won ID = [id number] for RONAL BROCK [id number] 15:52:00 Test Item Value Reference Range Interpretation Comments FERRITIN (BEAKER) (test code = 2985.27 ng/mL 5.00-275.00 H 361) Sales Enablement Consultant ID - BSOperator ID - BSIRON, TIBC, % SAT. (WITHOUT FERRITIN)2021-02-08 14:59:00 Test Item Value Reference Range Interpretation Comments IRON (BEAKER) (test code = 547) 68.0 ug/dL 40.0-160.0 TOTAL IRON BINDING CAPACITY 136 ug/dL 250-450 L (BEAKER) (test code = 769) IRON % SATURATION (2) (BEAKER) 50 % 20-55 (test code = 2590) Sales Enablement Consultant ID - BSPROTHROMBIN TIME/[id number] 14:45:00 Test Item Value Reference Range Interpretation Comments PROTIME (BEAKER) 19.5 seconds 11.9-14.2 H (test code = 759) INR (BEAKER) (test 1.67 See_Comment [Automat ed message] code = 370) The system Zoondy generated this result transmitted ref erence range: <=5.90. The reference range was not used to int erpret this result as normal/abnormal . RECOMMENDED COUMADIN/WARFARIN INR THERAPY RANGESSTANDARD DOSE: 2.0 - 3.0 Includes: PROPHYLAXIS for venous thrombosis, systemic embolization; TREATMENT for venous thrombosis and/or pulmonary embolus.HIGH RISK: Target INR is 2.5-3.5 for patients with mechanical heart valves.POCT-GLUCOSE [id number] 11:26:00 Test Item Value Reference Range Interpretation Comments POC-GLUCOSE METER 112 mg/dL 70-110 H : TESTED A T [facility] 6720 ([employer]) (test code = XYverify [facility] [place], 1538) 884[address]: Sales Enablement Consultant/Techni won ID = [id number] for RONAL PEREZ POCT-GLUCOSE [id number] 07:47:00 Test Item Value Reference Range Interpretation Comments POC-GLUCOSE METER 75 mg/dL 70-110 : TESTED A T [facility] 6720 ([employer]) (test code = [facility] [employer] [facility] [place], 1538) 37740: Sales Enablement Consultant/Techni won ID = [id number] for RONAL BROCK RAD, CHEST, 1 VIEW, NON [id number] 07:43:00Reason for exam:- >intubatedShould this be performed at the bedside?->Yes [facility] : 1975 Sex: MFINAL REPORT RAD, CHEST, 1 VIEW, NON DEPT INDICATION: intubated COMPARISON: Prior day's exam FINDINGS: Portable frontal view of the chest. IMPRESSION: Support Lines: Stable. Lungs and pleura: Worsening interstitial edema and effusions. No pneumothorax.Heart and mediastinum: Stable contours. Stable surgical changes.Additional findings: None. Signed: JR Tate Robert MDReport Verified Date/Time: 02/08/2021 07:43:26 Reading Location: [facility] Radiology Reading Room BASIC METABOLIC [id number] 04:08:00 Test Item Value Reference Range Interpretation [...] S NOT APPLICABLE FOR DIALYSIS PATIEN TS. Sales Enablement Consultant ID - LINA [id number] 04:07:00 Test Item Value Reference Range Interpretation Comments MAGNESIUM (BEAKER) (test code = 1.7 mg/dL 1.6-2.6 627) Sales Enablement Consultant ID - LINA [id number] 04:07:00 Test Item Value Reference Range Interpretation Comments PHOSPHORUS (BEAKER) (test code = 6.1 mg/dL 2.3-4.7 H 604) Sales Enablement Consultant ID - LINA LCALCIUM, [id number] 04:02:00 Test Item Value Reference Range Interpretation Comments CALCIUM IONIZED (BEAKER) (test 1.19 mmol/L 1.12-1.27 code = 698) PH, BLOOD (BEAKER) (test code = 7.40 1810) CBC W/PLT COUNT & AUTO [id number] 03:56:00 Test Item Value Reference Range Interpretation [...] PERCENT (BEAKER) (test code = 2801) PROTHROMBIN TIME/[id number] 03:52:00 Test Item Value Reference Range Interpretation Comments PROTIME (BEAKER) 19.3 seconds 11.9-14.2 H (test code = 759) INR (BEAKER) (test 1.65 See_Comment [Automat ed message] code = 370) The system Zoondy generated this result transmitted ref erence range: <=5.90. The reference range was not used to int erpret this result as normal/abnormal . RECOMMENDED COUMADIN/WARFARIN INR THERAPY RANGESSTANDARD DOSE: 2.0 - 3.0 Includes: PROPHYLAXIS for venous thrombosis, systemic embolization; TREATMENT for venous thrombosis and/or pulmonary embolus.HIGH RISK: Target INR is 2.5-3.5 for patients with mechanical heart valves.POCT-GLUCOSE [id number] 22:32:00 Test Item Value Reference Range Interpretation Comments POC-GLUCOSE METER 93 mg/dL 70-110 : TESTED A T [facility] 6720 (BEAKER) (test code = [facility], 1538) 467[address]: Sales Enablement Consultant/Techni won ID = [id number] for MESERET DELVALLESeptember POCT-GLUCOSE [id number] 17:21:00 Test Item Value Reference Range Interpretation Comments POC-GLUCOSE METER 81 mg/dL 70-110 : TESTED A T [facility] 6720 (TAMARA) (test code = [facility] [place], 1538) 61097: Sales Enablement Consultant/Techni won ID = [id number] for RONAL BROCK HEMOGLOBIN AND [id number] 13:35:00 Test Item Value Reference Range Interpretation Comments HEMOGLOBIN (BEAKER) (test code = 7.1 GM/DL 13.7-17.5 L 410) HEMATOCRIT (BEAKER) (test code = 21.6 % 40.1-51.0 L 411) Sales Enablement Consultant ID - [id number]-GLUCOSE [id number] 12:35:00 Test Item Value Reference Range Interpretation Comments POC-GLUCOSE METER 90 mg/dL 70-110 : TESTED A T [facility] 6720 (TAMARA) (test code = [facility], 1538) 937[address]: Sales Enablement Consultant/Techni won ID = [id number] for RONAL BROCK CT, BRAIN, WITHOUT [id number] 11:47:00Reason for exam:->lt hemiparesis What is the patient's sedation requirement?->No Sedation [facility] 1975 Sex: MAddendum BeginsREPORT STATUS:A Addendum: Questionable subcentimeter region of infarction within the right inferior frontal lobe (axial image 19), not seen on prior exam. Findings discussed with ordering provider by Dr. Cantu at time of this addendum. Signed: Re Cantu MDReportVerified Date/Time: 02/07/2021 11:47:29 Reading Location: [address] Neuro Reading RoomAddendum EndsFINAL REPORT CT, BRAIN, [...] subarachnoid hemorrhage within the left parietal sulci, notsignificantly increased from prior exam. Although hemorrhage appears linear on sagittal and coronal series, axial images demonstrate questionable underlying hemorrhagic lesion, which may represent residual contusion, small hemorrhagic infarct and/or hemorrhagic metastasis. No new intracranial hemorrhage. 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 Scattered foci of hypoattenuation are present throughout the periventricular and subcortical white matter, and, although nonspecific by imaging, statistically represent mild chronic microvascular ischemic changes in this age group. No hydrocephalus. Orbits are within normal limits. No obstructive paranasal sinus disease. IMPRESSION: There is some residual [...] for further assessment. No new intracranial hemorrhage. Ifthere is persistent clinical concern for intracranial pathology, MR examination is recommended for further characterization. Signed: Re Cantu Verified Date/Time: 02/07/2021 10:56:22 Reading Location: [address] Neuro Reading Room Electronically signed by: Riaz BORGES 02/07/2021 11:47 AM POCT-GLUCOSE [id number] 07:42:00 Test Item Value Reference Range Interpretation Comments POC-GLUCOSE METER 104 mg/dL 70-110 : TESTED A T [facility] 6720 (BEAKER) (test code = [place], 1538) [id number]: Sales Enablement Consultant/Techni won ID = [id number] for RONAL PEREZ RAD, CHEST, 1 VIEW, NON [id number] 07:24:00Reason for exam:- >intubatedShould this be performed at the bedside?->Yes [facility] 1975 Sex: MFINAL REPORT RAD, CHEST, 1 VIEW, NON DEPT INDICATION: intubated COMPARISON: Prior day's exam FINDINGS: Portable frontal view of the chest. IMPRESSION: Support Lines: Stable. Lungs and pleura: Improved but persistent interstitial edema. No pneumothorax.Heart and mediastinum: Stable contours. Stable surgical changes.Additional findings: None. Signed: JR Tate Robert MDReport Verified Date/Time: 02/07/2021 07:24:30 Reading Location: [facility] Radiology Reading Room CALCIUM, [id number] 05:07:00 Test Item Value Reference Range Interpretation Comments CALCIUM IONIZED (BEAKER) (test 1.17 mmol/L 1.12-1.27 code = 698) PH, BLOOD (BEAKER) (test code = 7.45 1810) BASIC METABOLIC [id number] 03:45:00 Test Item Value Reference Range Interpretation [...] S NOT APPLICABLE FOR DIALYSIS PATIEN TS. Sales Enablement Consultant ID - VALDEZ [id number] 03:40:00 Test Item Value Reference Range Interpretation Comments MAGNESIUM (BEAKER) (test code = 1.7 mg/dL 1.6-2.6 627) Sales Enablement Consultant ID - VALDEZ [id number] 03:40:00 Test Item Value Reference Range Interpretation Comments PHOSPHORUS (BEAKER) (test code = 4.9 mg/dL 2.3-4.7 H 604) Sales Enablement Consultant ID - VALDEZ MPROTHROMBIN TIME/[id number] 03:29:00 Test Item Value Reference Range Interpretation Comments PROTIME (BEAKER) 18.4 seconds 11.9-14.2 H (test code = 759) INR (BEAKER) (test 1.55 See_Comment [Automat ed message] code = 370) The system Zoondy generated this result transmitted ref erence range: <=5.90. The reference range was not used to int erpret this result as normal/abnormal . RECOMMENDED COUMADIN/WARFARIN INR THERAPY RANGESSTANDARD DOSE: 2.0 - 3.0 Includes: PROPHYLAXIS for venous thrombosis, systemic embolization; TREATMENT for venous thrombosis and/or pulmonary embolus.HIGH RISK: Target INR is 2.5-3.5 for patients with mechanical heart valves.CBC W/PLT COUNT & AUTO [id number] 03:13:00 Test Item Value Reference Range Interpretation [...] (test code = 2801) FUNGUS CULTURE + [id number] 22:52:00 Test Item Value Reference Range Interpretation Comments CULTURE (BEAKER) (test No fungus isolated in code = 1095) 28 days FUNGUS SMEAR (BEAKER) No fungi seen (test code = 1406) POCT-GLUCOSE [id number] 16:41:00 Test Item Value Reference Range Interpretation Comments POC-GLUCOSE METER 97 mg/dL 70-110 : TESTED A T [facility] 6720 (BEAKER) (test code = [facility] [place], 1538) [address]: Sales Enablement Consultant/Techni won ID = [id number] for IVONE ZHAO POCT-GLUCOSE [id number] 11:40:00 Test Item Value Reference Range Interpretation Comments POC-GLUCOSE METER 102 mg/dL 70-110 : TESTED A T [facility] 6720 (BEAKER) (test code = [facility] [place], 1538) 90866: Sales Enablement Consultant/Techni won ID = [id number] for IVONE RIBEIRO HEPATIC FUNCTION [id number] 08:31:00 Test Item Value Reference Range Interpretation [...] (test code = 37 U/L 6-55 347) Sales Enablement Consultant ID - VALDEZ MEDINAD, CHEST, 1 VIEW, NON [id number] 07:58:00Reason for exam:->intubatedShould this be performed at the bedside?->Yes [facility] 1975 Sex: MFINAL REPORT RAD, CHEST, 1 VIEW, NON DEPT INDICATION: intubated COMPARISON: Prior day's exam FINDINGS: Portable frontal view of the chest. IMPRESSION: Support Lines: Stable. Lungs and pleura: Unchanged airspace and pleural opacities. No pneumothorax.Heart and mediastinum: Stable contours. Stable surgical changes.Additional findings: None. Signed: JR Tate Robert MDReport Verified Date/Time: 02/06/2021 07:58:22 Reading Location: [facility] Radiology Reading Room POCT-GLUCOSE [id number] 06:40:00 Test Item Value Reference Range Interpretation Comments POC-GLUCOSE METER 102 mg/dL 70-110 : TESTED A T [facility] 6720 (BEAKER) (test code = [facility] [place], 1538) 6[address]: Sales Enablement Consultant/Techni won ID = [id number] for [facility] Cynthia BASIC METABOLIC [id number] 04:44:00 Test Item Value Reference Range Interpretation [...] S NOT APPLICABLE FOR DIALYSIS PATIEN TS. Sales Enablement Consultant ID - [id number] 04:20:00 Test Item Value Reference Range Interpretation Comments MAGNESIUM (BEAKER) (test code = 1.8 mg/dL 1.6-2.6 627) Sales Enablement Consultant ID - [id number] 04:20:00 Test Item Value Reference Range Interpretation Comments PHOSPHORUS (BEAKER) (test code = 6.3 mg/dL 2.3-4.7 H 604) Sales Enablement Consultant ID - DBPROTHROMBIN TIME/[id number] 04:19:00 Test Item Value Reference Range Interpretation Comments PROTIME (BEAKER) 22.0 seconds 11.9-14.2 H (test code = 759) INR (BEAKER) (test 1.95 See_Comment [Automat ed message] code = 370) The system Zoondy generated this result transmitted ref erence range: <=5.90. The reference range was not used to int erpret this result as normal/abnormal . RECOMMENDED COUMADIN/WARFARIN INR THERAPY RANGESSTANDARD DOSE: 2.0 - 3.0 Includes: PROPHYLAXIS for venous thrombosis, systemic embolization; TREATMENT for venous thrombosis and/or pulmonary embolus.HIGH RISK: Target INR is 2.5-3.5 for patients with mechanical heart valves.CALCIUM, [id number] 03:29:00 Test Item Value Reference Range Interpretation Comments CALCIUM IONIZED (BEAKER) (test 1.18 mmol/L 1.12-1.27 code = 698) PH, BLOOD (BEAKER) (test code = 7.43 1810) CBC W/PLT COUNT & AUTO [id number] 03:28:00 Test Item Value Reference Range Interpretation [...] PERCENT (BEAKER) (test code = 2801) POCT-GLUCOSE [id number] 21:26:00 Test Item Value Reference Range Interpretation Comments POC-GLUCOSE METER 115 mg/dL 70-110 H : TESTED A T [facility] 6720 (BEAKER) (test code = [place], 1538) 57473: Sales Enablement Consultant/Techni won ID = [id number] for Cynthia Laird [id number] 18:57:00 Test Item Value Reference Range Interpretation Comments MAGNESIUM (BEAKER) (test code = 1.8 mg/dL 1.6-2.6 627) Sales Enablement Consultant ID - PIAYA LPOCT-GLUCOSE [id number] 18:44:00 Test Item Value Reference Range Interpretation Comments POC-GLUCOSE METER 102 mg/dL 70-110 : TESTED A T [facility] 6720 ([facility]) (test code = [facility], 1538) 76609: Sales Enablement Consultant/Techni won ID = [id number] for Am Moisés cabrera POCT-GLUCOSE [id number] 12:50:00 Test Item Value Reference Range Interpretation Comments POC-GLUCOSE METER 84 mg/dL 70-110 : TESTED A T [facility] 6720 ([facility]) (test code = [facility], 1538) 45232: Sales Enablement Consultant/Techni won ID = [id number] for RONAL BROCK POCT-GLUCOSE [id number] 07:48:00 Test Item Value Reference Range Interpretation Comments POC-GLUCOSE METER 88 mg/dL 70-110 : TESTED A T [facility] 6720 ([facility]) (test code = [facility], 1538) 51449: Sales Enablement Consultant/Techni won ID = [id number] for RONAL BROCK RAD, CHEST, 1 VIEW, NON [id number] 06:09:00Reason for exam:- >intubatedShould this be performed at the bedside?->Yes [facility] 1975 Sex: MFINAL REPORT RAD, CHEST, 1 VIEW, NON DEPT INDICATION: intubated COMPARISON: Prior day's exam FINDINGS: Portable frontal view of the chest. IMPRESSION: Support Lines: Central catheter tip overlies right atrium. Cardiac valvular prosthesis. Prior sternotomy. Lungs and pleura: Increased basilar airspace disease. Superimposed small bilateral effusions are suspected. No pneumothorax. Heartand mediastinum: Stable contours. Stable surgical changes.Additional findings: None. Signed: Re Cantu MDReport Verified Date/Time: 02/05/2021 06:09:25 BASIC METABOLIC [id number] 04:35:00 Test Item Value Reference Range Interpretation [...] S NOT APPLICABLE FOR DIALYSIS PATIEN TS. Sales Enablement Consultant ID - PIRAFY [id number] 04:16:00 Test Item Value Reference Range Interpretation Comments MAGNESIUM (BEAKER) (test code = 1.6 mg/dL 1.6-2.6 627) Sales Enablement Consultant ID - PIRAFY [id number] 04:16:00 Test Item Value Reference Range Interpretation Comments PHOSPHORUS (BEAKER) (test code = 5.1 mg/dL 2.3-4.7 H 604) Sales Enablement Consultant ID - LINA LCBC W/PLT COUNT & AUTO [id number] 04:13:00 Test Item Value Reference Range Interpretation [...] PERCENT (BEAKER) (test code = 2801) PROTHROMBIN TIME/[id number] 03:39:00 Test Item Value Reference Range Interpretation Comments PROTIME (BEAKER) 27.9 seconds 11.9-14.2 H (test code = 759) INR (BEAKER) (test 2.64 See_Comment [Automat ed message] code = 370) The system Zoondy generated this result transmitted ref erence range: <=5.90. The reference range was not used to int erpret this result as normal/abnormal . RECOMMENDED COUMADIN/WARFARIN INR THERAPY RANGESSTANDARD DOSE: 2.0 - 3.0 Includes: PROPHYLAXIS for venous thrombosis, systemic embolization; TREATMENT for venous thrombosis and/or pulmonary embolus.HIGH RISK: Target INR is 2.5-3.5 for patients with mechanical heart valves.CALCIUM, [id number] 03:35:00 Test Item Value Reference Range Interpretation Comments CALCIUM IONIZED (BEAKER) (test 1.11 mmol/L 1.12-1.27 L code = 698) PH, BLOOD (BEAKER) (test code = 7.48 1810) POCT-GLUCOSE [id number] 21:54:00 Test Item Value Reference Range Interpretation Comments POC-GLUCOSE METER 105 mg/dL 70-110 : TESTED A T [facility] 6720 (BEAKER) (test code = [place], 1538) 52[address]: Sales Enablement Consultant/Techni won ID = [id number] for DO September PROTHROMBIN TIME/[id number] 20:05:00 Test Item Value Reference Range Interpretation Comments PROTIME (BEAKER) 30.9 seconds 11.9-14.2 H (test code = 759) INR (BEAKER) (test 3.01 See_Comment [Automat ed message] code = 370) The system Zoondy generated this result transmitted ref erence range: <=5.90. The reference range was not used to int erpret this result as normal/abnormal . RECOMMENDED COUMADIN/WARFARIN INR THERAPY RANGESSTANDARD DOSE: 2.0 - 3.0 Includes: PROPHYLAXIS for venous thrombosis, systemic embolization; TREATMENT for venous thrombosis and/or pulmonary embolus.HIGH RISK: Target INR is 2.5-3.5 for patients with mechanical heart valves.POCT-GLUCOSE [id number] 19:04:00 Test Item Value Reference Range Interpretation Comments POC-GLUCOSE METER 128 mg/dL 70-110 H : TESTED A T [facility] 6720 (BEAKER) (test code = [place], 1538) [address]: Sales Enablement Consultant/Techni won ID = [id number] for Levy Vera CBC W/PLT COUNT & AUTO [id number] 15:37:00 Test Item Value Reference Range Interpretation [...] PERCENT (BEAKER) (test code = 2801) POCT-GLUCOSE [id number] 11:48:00 Test Item Value Reference Range Interpretation Comments POC-GLUCOSE METER 113 mg/dL 70-110 H : TESTED A T [facility] 6720 (BEAKER) (test code = [facility] [employer] [facility] [place], 1538) 18736: Sales Enablement Consultant/Techni won ID = [id number] for THOMAS BRYANT POCT-GLUCOSE [id number] 07:41:00 Test Item Value Reference Range Interpretation Comments POC-GLUCOSE METER 119 mg/dL 70-110 H : TESTED A T [facility] 6720 (BEAKER) (test code = [place], 1538) 71479: Sales Enablement Consultant/Techni won ID = [id number] for DELMER MAKI, THOMAS PROTHROMBIN TIME/[id number] 06:34:00 Test Item Value Reference Range Interpretation Comments PROTIME (BEAKER) 35.3 seconds 11.9-14.2 H (test code = 759) INR (BEAKER) (test 3.56 See_Comment [Automat ed message] code = 370) The system Zoondy generated this result transmitted ref erence range: <=5.90. The reference range was not used to int erpret this result as normal/abnormal . RECOMMENDED COUMADIN/WARFARIN INR THERAPY RANGESSTANDARD DOSE: 2.0 - 3.0 Includes: PROPHYLAXIS for venous thrombosis, systemic embolization; TREATMENT for venous thrombosis and/or pulmonary embolus.HIGH RISK: Target INR is 2.5-3.5 for patients with mechanical heart valves.RAD, CHEST, 1 VIEW, NON [id number] 06:02:00Reason for exam:->intubatedShould this be performed at the bedside?->[facility] 1975 Sex: [...] Stable contours. Stable surgical changes.Additional findings: None.Signed: Re Cantu MDReport Verified Date/Time: 02/04/2021 06:02:13 BASIC METABOLIC [id number] 05:16:00 Test Item Value Reference Range Interpretation [...] S NOT APPLICABLE FOR DIALYSIS PATIEN TS. Sales Enablement Consultant ID - VALDEZ [id number] 05:09:00 Test Item Value Reference Range Interpretation Comments PHOSPHORUS (BEAKER) (test code = 6.8 mg/dL 2.3-4.7 H 604) Sales Enablement Consultant ID - VALDEZ [id number] 05:08:00 Test Item Value Reference Range Interpretation Comments MAGNESIUM (BEAKER) (test code = 1.9 mg/dL 1.6-2.6 627) Sales Enablement Consultant ID - VALDEZ MCALCIUM, [id number] 05:01:00 Test Item Value Reference Range Interpretation Comments CALCIUM IONIZED (BEAKER) (test 1.12 mmol/L 1.12-1.27 code = 698) PH, BLOOD (BEAKER) (test code = 7.43 1810) CBC W/PLT COUNT & AUTO [id number] 04:49:00 Test Item Value Reference Range Interpretation [...] ABSOLUTE COUNT 7.15 K/ L 1.78-5.38 H (BEAKER) (test code [...] PERCENT (BEAKER) (test code = 2801) POCT-GLUCOSE [id number] 00:50:00 Test Item Value Reference Range Interpretation Comments POC-GLUCOSE METER 115 mg/dL 70-110 H : Notified RN/MD: (TAMARA) (test code = TESTED AT [place] [address] 153) [facility], [address]: Sales Enablement Consultant/Techni won ID = [id number] for Vinod Canas POCT-GLUCOSE [id number] 17:39:00 Test Item Value Reference Range Interpretation Comments POC-GLUCOSE METER 101 mg/dL 70-110 : TESTED A T [facility] 6720 ([facility]) (test code = [facility], 153) 15989: Sales Enablement Consultant/Techni won ID = [id number] for RONAL PEERZ POCT-GLUCOSE [id number] 11:33:00 Test Item Value Reference Range Interpretation Comments POC-GLUCOSE METER 90 mg/dL 70-110 : TESTED A T [facility] 6720 ([facility]) (test code = [facility], 153) [address]79: Sales Enablement Consultant/Techni won ID = [id number] for RONAL BROCK RAD, CHEST, 1 VIEW, NON [id number] 09:24:00Reason for exam:- >intubatedShould this be performed at the bedside?->Yes [facility]ENTERName: CROW KAUR : 1975 Sex: MFINAL REPORT RAD, CHEST, 1 VIEW, NON DEPT INDICATION: intubated COMPARISON: Prior day's exam FINDINGS: Portable frontal view of the chest. IMPRESSION: Support Lines: DOS is catheter tipoverlies right atrium Lungs and pleura: The lateral airspace opacities, predominantly within the lower lobes, unchanged, representing multifocal edema and/or multifocal pneumonia. No pneumothorax.Heartand mediastinum: Stable contours.Additional findings: None. Signed: Re Cantu Verified Date/Time: 02/03/2021 09:24:45 Reading Location: [facility] Radiology Reading Room POCT-GLUCOSE [id number] 07:45:00 Test Item Value Reference Range Interpretation Comments POC-GLUCOSE METER 87 mg/dL 70-110 : TESTED A T [facility] 6720 (BEAKER) (test code [facility], = 1538) [address]: Sales Enablement Consultant/Techni won ID = [id number] for Timmy hernandez [id number]), [facility] BASIC METABOLIC [id number] 05:08:00 Test Item Value Reference Range Interpretation [...] S NOT APPLICABLE FOR DIALYSIS PATIEN TS. Sales Enablement Consultant ID - SAROJRAFY [id number] 05:07:00 Test Item Value Reference Range Interpretation Comments MAGNESIUM (BEAKER) (test code = 1.9 mg/dL 1.6-2.6 627) Sales Enablement Consultant ID - SAROJRAFY [id number] 05:07:00 Test Item Value Reference Range Interpretation Comments PHOSPHORUS (BEAKER) (test code = 5.9 mg/dL 2.3-4.7 H 604) Sales Enablement Consultant ID - SAROJRAFY LCALCIUM, [id number] 03:59:00 Test Item Value Reference Range Interpretation Comments CALCIUM IONIZED (BEAKER) (test 1.13 mmol/L 1.12-1.27 code = 698) PH, BLOOD (BEAKER) (test code = 7.43 1810) CBC W/PLT COUNT & AUTO [id number] 03:45:00 Test Item Value Reference Range Interpretation [...] PERCENT (BEAKER) (test code = 2801) PROTHROMBIN TIME/[id number] 03:38:00 Test Item Value Reference Range Interpretation Comments PROTIME (BEAKER) 28.4 seconds 11.9-14.2 H (test code = 759) INR (BEAKER) (test 2.70 See_Comment [Automat ed message] code = 370) The system Zoondy generated this result transmitted ref erence range: <=5.90. The reference range was not used to int erpret this result as normal/abnormal . RECOMMENDED COUMADIN/WARFARIN INR THERAPY RANGESSTANDARD DOSE: 2.0 - 3.0 Includes: PROPHYLAXIS for venous thrombosis, systemic embolization; TREATMENT for venous thrombosis and/or pulmonary embolus.HIGH RISK: Target INR is 2.5-3.5 for patients with mechanical heart valves.POCT-GLUCOSE [id number] 22:10:00 Test Item Value Reference Range Interpretation Comments POC-GLUCOSE METER 85 mg/dL 70-110 : TESTED A T [facility] 6720 ([employer]) (test code = [facility], 1538) [address]46: Sales Enablement Consultant/Techni won ID = [id number] for MESERET ETSeptember POCT-GLUCOSE [id number] 16:43:00 Test Item Value Reference Range Interpretation Comments POC-GLUCOSE METER 88 mg/dL 70-110 : TESTED A T [facility] 6720 ([employer]) (test code = [facility], 1538) 48676: Sales Enablement Consultant/Techni won ID = [id number] for IVONE ZHAO POCT-GLUCOSE [id number] 12:16:00 Test Item Value Reference Range Interpretation Comments POC-GLUCOSE METER 94 mg/dL 70-110 : TESTED A T [facility] 6720 ([employer]) (test code = [facility], 1538) 11444: Sales Enablement Consultant/Techni won ID = [id number] for IVONE ZHAO RAD, CHEST, 1 VIEW, NON [id number] 08:20:00Reason for exam:- >intubatedShould this be performed at the bedside?->Yes [facility] 1975 Sex: MFINAL REPORT RAD, CHEST, 1 VIEW, NON DEPT INDICATION: intubated COMPARISON: Prior day's exam FINDINGS: Portable frontal view of the chest. IMPRESSION: Support Lines: Dialysis catheter tip overlies right atrium. Sternotomy wires. Lungs and pleura: Bilateral effusions with adjacent compre ssive atelectasis. No pneumothorax.Heart and mediastinum: Stable contours. Stable surgical changes.Additional findings: None. Signed: Re Cantu Verified Date/Time: 02/02/2021 08:20:25 Reading Location: [facility] Radiology Reading Room XR chest 1 view portable / [id number] 08:20:00 Interface, External Ris In - 02/02/2021 8:22 AM CDTFINAL REPORT RAD, CHEST, 1 VIEW, NON DEPT INDICATION: intubated COMPARISON: Prior day's exam FINDINGS: Portable frontal view of the chest. IMPRESSION: Support Lines: Dialysis catheter tip overlies right atrium. Sternotomy wires. Lungs and pleura: Bilateral effusions with adjacent compressive atelectasis. No pneumothorax.Heart andmediastinum: Stable contours. Stable surgical changes.Additional findings: None. Signed: Re Cantu Verified Date/Time: 02/02/2021 08:20:25 Reading Location: [facility] Radiology [facility] / [id number] 08:20:00Interface, External Ris In - 02/02/2021 8:22 AM CDTFINAL REPORT RAD, CHEST, 1 VIEW, NON DEPT INDICATION: intubated COMPARISON: Prior day's exam FINDINGS: Portable frontal view of the chest. IMPRESSION: Support Lines: Dialysis catheter tip overlies right atrium. Sternotomy wires. Chidi ngs and pleura: Bilateral effusions with adjacent compressive atelectasis. No pneumothorax.Heart andmediastinum: Stable contours. Stable surgical changes.Additional findings: None. Signed: Re Cantu Verified Date/Time: 02/02/2021 08:20:25 Reading Location: [facility] Radiology Reading [facility] / [id number] 08:20:00Interface, External Ris In - 02/02/2021 8:22 AM CDTFINAL REPORT RAD, CHEST, 1 VIEW, NON DEPT INDICATION: intubated COMPARISON: Prior day's exam FINDINGS: Portable frontal view of the chest. IMPRESSION: Support Lines: Dialysis catheter tip overlies right atrium. Sternotomy wires. Chidi ngs and pleura: Bilateral effusions with adjacent compressive atelectasis. No pneumothorax.Heart andmediastinum: Stable contours. Stable surgical changes.Additional findings: None. Signed: Re Cantu MDReport Verified Date/Time: 02/02/2021 08:20:25 Reading Location: [facility] Radiology Reading Room [facility]-Glucose [id number] 07:38:00 Test Item Value Reference Range Interpretation Comments POC-Glucose Meter (test 83 mg/dL 70-110 : TE STED AT [facility] code = 1538) [address] [place] [address], [facility] 30: Sales Enablement Consultant/Techni won ID = [id number] for VINOD, RONAL Lab Interpretation (test Normal code = 15750-5) [facility]-Glucose [id number] 07:38:00 Test Item Value Reference Range Interpretation Comments POC-Glucose Meter (test 83 mg/dL 70-110 : [facility] code = 1538) [address] [place] [address], 770 30: Sales Enablement Consultant/Techni won ID = [id number] for VINOD, RONAL Lab Interpretation (test Normal code = 59992-2) [facility]-Glucose [id number] 07:38:00 Test Item Value Reference Range Interpretation Comments POC-Glucose Meter (test 83 mg/dL 70-110 : TE STED AT [facility] code = 1538) [address] [place], 7[address] 30: Sales Enablement Consultant/Techni won ID = [id number] for RONAL BROCK Lab Interpretation (test Normal code = 50133-7) [facility] [id number] 07:38:00 Test Item Value Reference Range Interpretation Comments POC-GLUCOSE METER 83 mg/dL 70-110 : TESTED A T [facility] 6720 (BEAKER) (test code = [place], 1538) [address]: Sales Enablement Consultant/Techni won ID = [id number] for RONAL BROCK Calcium, [id number] 06:32:00 Test Item Value Reference Range Interpretation Comments Calcium, Ion (test code = 1993-) 1.09 mmol/L 1.12-1.27 L pH, Blood (test code = 96814-1) 7.42 Lab Interpretation (test code = Abnormal 37491-8) [facility]Cal[facility], [id number] 06:32:00 Test Item Value Reference Range Interpretation Comments Calcium, Ion (test code = 1993-) 1.09 mmol/L 1.12-1.27 L pH, Blood (test code = 51119-7) 7.42 Lab Interpretation (test code = Abnormal 27953-2) [facility], [id number] 06:32:00 Test Item Value Reference Range Interpretation Comments Calcium, Ion (test code = 1993-) 1.09 mmol/L 1.12-1.27 L pH, Blood (test code = 28759-0) 7.42 Lab Interpretation (test code = Abnormal 47121-9) [facility], [id number] 06:32:00 Test Item Value Reference Range Interpretation Comments CALCIUM IONIZED (BEAKER) (test 1.09 mmol/L 1.12-1.27 L code = 698) PH, BLOOD (BEAKER) (test code = 7.42 1810) CBC with platelet count + automated [id number] 04:38:00 Test Item Value Reference Range Interpretation Comments WBC (test code = 6690-2) 8.8 See_Comment [A utomated message] The system Zoondy generated this result transmitted ref erence range: 3.5 - 10 .5 K/L. The refe rence range was not u sed to interpret this result as normal/abnor mal. RBC (test code = 789-8) 2.72 See_Comment L [Au tomated message] The system Zoondy generated this result transmitted ref erence range: 4.63 - 6 .08 M/L. The refe rence range was not u sed to interpret this result as normal/abnor mal. MCHC (test code = 786-4) 32.2 See_Comment L [A utomated message] The system Zoondy generated this result transmitted ref erence range: [...] See_Comment [Aut omated message] 777-3) The system Zoondy generated this result transmitted ref erence range: 150 - 45 0 K/CU MM. The referen ce range was not u sed to interpret this result as normal/abnor mal. MPV (test code = 9.9 fL 9.4-12.4 57333-7) nRBC (test code = 413) 0 See_Comment [Aut omated message] The system Zoondy generated this result transmitted ref erence range: [...] H [Aut omated message] 670) The system Zoondy generated this result transmitted ref erence range: 1.78 - 5 .38 K/L. The refe rence range was not u sed to interpret this result as normal/abnor mal. # Lymphs (test code = 0.63 See_Comment L [Auto mated message] 414) The system Zoondy generated this result transmitted ref erence range: 1.32 - 3 .57 K/L. The refe rence range was not u sed to interpret this result as normal/abnor mal. # Monos (test code = 0.76 See_Comment [Autom ated message] 415) The system Zoondy generated this result transmitted ref erence range: 0.30 - 0 .82 K/L. The refe rence range was not u sed to interpret this result as normal/abnor mal. # Eos (test code = 416) 0.44 See_Comment [Au tomated message] The system Zoondy generated this result transmitted ref erence range: 0.04 - 0 .54 K/L. The refe rence range was not u sed to interpret this result as normal/abnor mal. # Baso (test code = 417) 0.07 See_Comment [A utomated message] The system Zoondy generated this result transmitted ref erence range: 0.01 - 0 .08 K/L. The refe rence range was not u sed to interpret this result as normal/abnor mal. Immature 1 % 0-1 Granulocytes-Relative (test code = 2801) Lab Interpretation (test Abnormal code = 28466-3) [facility] with platelet count + automated [id number] 04:38:00 Test Item Value Reference Range Interpretation Comments WBC (test code = 6690-2) 8.8 See_Comment [A utomated message] The system Zoondy generated this result transmitted ref erence range: 3.5 - 10 .5 K/L. The refe rence range was not u sed to interpret this result as normal/abnor mal. RBC (test code = 789-8) 2.72 See_Comment L [Au tomated message] The system Zoondy generated this result transmitted ref erence range: 4.63 - 6 .08 M/L. The refe rence range was not u sed to interpret this result as normal/abnor mal. MCHC (test code = 786-4) 32.2 See_Comment L [A utomated message] The system Zoondy generated this result transmitted ref erence range: [...] See_Comment [Aut omated message] 777-3) The system Zoondy generated this result transmitted ref erence range: 150 - 45 0 K/CU MM. The referen ce range was not u sed to interpret this result as normal/abnor mal. MPV (test code = 9.9 fL 9.4-12.4 74171-8) nRBC (test code = 413) 0 See_Comment [Aut omated message] The system Zoondy generated this result transmitted ref erence range: [...] H [Aut omated message] 670) The system Zoondy generated this result transmitted ref erence range: 1.78 - 5 .38 K/L. The refe rence range was not u sed to interpret this result as normal/abnor mal. # Lymphs (test code = 0.63 See_Comment L [Auto mated message] 414) The system Zoondy generated this result transmitted ref erence range: 1.32 - 3 .57 K/L. The refe rence range was not u sed to interpret this result as normal/abnor mal. # Monos (test code = 0.76 See_Comment [Autom ated message] 415) The system Zoondy generated this result transmitted ref erence range: 0.30 - 0 .82 K/L. The refe rence range was not u sed to interpret this result as normal/abnor mal. # Eos (test code = 416) 0.44 See_Comment [Au tomated message] The system Zoondy generated this result transmitted ref erence range: 0.04 - 0 .54 K/L. The refe rence range was not u sed to interpret this result as normal/abnor mal. # Baso (test code = 417) 0.07 See_Comment [A utomated message] The system Zoondy generated this result transmitted ref erence range: 0.01 - 0 .08 K/L. The refe rence range was not u sed to interpret this result as normal/abnor mal. Immature 1 % 0-1 Granulocytes-Relative (test code = 2801) Lab Interpretation (test Abnormal code = 41069-4) [facility] with platelet count + automated [id number] 04:38:00 Test Item Value Reference Range Interpretation Comments WBC (test code = 6690-2) 8.8 See_Comment [A utomated message] The system Zoondy generated this result transmitted ref erence range: 3.5 - 10 .5 K/L. The refe rence range was not u sed to interpret this result as normal/abnor mal. RBC (test code = 789-8) 2.72 See_Comment L [Au tomated message] The system Zoondy generated this result transmitted ref erence range: 4.63 - 6 .08 M/L. The refe rence range was not u sed to interpret this result as normal/abnor mal. MCHC (test code = 786-4) 32.2 See_Comment L [A utomated message] The system Zoondy generated this result transmitted ref erence range: [...] See_Comment [Aut omated message] 777-3) The system Zoondy generated this result transmitted ref erence range: 150 - 45 0 K/CU MM. The referen ce range was not u sed to interpret this result as normal/abnor mal. MPV (test code = 9.9 fL 9.4-12.4 52231-6) nRBC (test code = 413) 0 See_Comment [Aut omated message] The system Zoondy generated this result transmitted ref erence range: [...] H [Aut omated message] 670) The system Zoondy generated this result transmitted ref erence range: 1.78 - 5 .38 K/L. The refe rence range was not u sed to interpret this result as normal/abnor mal. # Lymphs (test code = 0.63 See_Comment L [Auto mated message] 414) The system Zoondy generated this result transmitted ref erence range: 1.32 - 3 .57 K/L. The refe rence range was not u sed to interpret this result as normal/abnor mal. # Monos (test code = 0.76 See_Comment [Autom ated message] 415) The system Zoondy generated this result transmitted ref erence range: 0.30 - 0 .82 K/L. The refe rence range was not u sed to interpret this result as normal/abnor mal. # Eos (test code = 416) 0.44 See_Comment [Au tomated message] The system Zoondy generated this result transmitted ref erence range: 0.04 - 0 .54 K/L. The refe rence range was not u sed to interpret this result as normal/abnor mal. # Baso (test code = 417) 0.07 See_Comment [A utomated message] The system Zoondy generated this result transmitted ref erence range: 0.01 - 0 .08 K/L. The refe rence range was not u sed to interpret this result as normal/abnor mal. Immature 1 % 0-1 Granulocytes-Relative (test code = 2801) Lab Interpretation (test Abnormal code = 04761-7) [facility] W/PLT COUNT & AUTO [id number] 04:38:00 Test Item Value Reference Range Interpretation [...] (BEAKER) (test code = 2801) Basic Metabolic [id number] 04:28:00 Test Item Value Reference Range Interpretation Comments Sodium (test code = 138 meq/L 613-950 1519-2) Potassium (test code = 4.4 meq/L 3.5-5.1 2823-3) Chloride (test code = 104 meq/L 98-107 2075-0) CO2 (test code = 24 meq/L -2027-) BUN (test code = 40 mg/dL 7-21 H 3094-0) Creatinine (test code 4.27 mg/dL 0.57-1.25 H = 2160-0) Glucose (test code = 94 mg/dL 70-105 2345-7) Calcium (test code = 8.3 mg/dL 8.4-10.2 L 38244-4) EGFR (test code = 19 mL/min/1[place] [address]-2) NOT ACCURATE CREATININE CLEARANCE IN PREDICTING GLOMERULAR FILTRATION RATE . ESTIMATED GFR I S NOT APPLICABLE FOR DIALYSIS PATIENTS. CARLEY (test code = CARLEY) Sales Enablement Consultant ID - VALDEZ M Lab Interpretation Abnormal (test code = 76471-5) [facility] [id number] 04:28:00 Test Item Value Reference Range Interpretation Comments Sodium (test code = 138 meq/L 168-329 1725-2) Potassium (test code = 4.4 meq/L 3.5-5.1 2823-3) Chloride (test code = 104 meq/L 98-107 2075-0) CO2 (test code = 24 meq/L -29 2028-9) BUN (test code = 40 mg/dL 7-21 H 3094-0) Creatinine (test code 4.27 mg/dL 0.57-1.25 H = 2160-0) Glucose (test code = 94 mg/dL 70-105 2345-7) Calcium (test code = 8.3 mg/dL 8.4-10.2 L 98465-3) EGFR (test code = 19 mL/min/1.[place] [address]-0) NOT ACCURATE CREATININE CLEARANCE IN PREDICTING GLOMERULAR FILTRATION RATE . ESTIMATED GFR I S NOT APPLICABLE FOR DIALYSIS PATIENTS. CARLEY (test code = CARLEY) Sales Enablement Consultant ID - VALDEZ M Lab Interpretation Abnormal (test code = 10057-4) [facility] Metabolic [id number] 04:28:00 Test Item Value Reference Range Interpretation Comments Sodium (test code = 138 meq/L 085-942 7535-2) Potassium (test code = 4.4 meq/L 3.5-5.1 2823-3) Chloride (test code = 104 meq/L 98-107 2075-0) CO2 (test code = 24 meq/L -9) BUN (test code = 40 mg/dL 7-21 H 3094-0) Creatinine (test code 4.27 mg/dL 0.57-1.25 H = 2160-0) Glucose (test code = 94 mg/dL 70-105 2345-7) Calcium (test code = 8.3 mg/dL 8.4-10.2 L 44613-2) EGFR (test code = 19 mL/min/1.[place] [address]-5) NOT ACCURATE CREATININE CLEARANCE IN PREDICTING GLOMERULAR FILTRATION RATE . ESTIMATED GFR I S NOT APPLICABLE FOR DIALYSIS PATIENTS. CARLEY (test code = CARLEY) Sales Enablement Consultant ID - VALDEZ M Lab Interpretation Abnormal (test code = 65080-1) [facility] METABOLIC [id number] 04:28:00 Test Item Value Reference Range Interpretation [...] S NOT APPLICABLE FOR DIALYSIS PATIEN TS. Sales Enablement Consultant [facility] 04:14:00 Test Item Value Reference Range Interpretation Comments Magnesium (test code = 2.0 mg/dL 1.6-2.6 28334-9) CARLEY (test code = CARLEY) Sales Enablement Consultant ID - [facility] Lab Interpretation (test Normal code = 86127-9) [place] [facility]2021-08-26 04:14:00 Test Item Value Reference Range Interpretation Comments Phosphorus (test code = 4.6 mg/dL 2.3-4.7 2777-1) CARLEY (test code = CARLEY) Sales Enablement Consultant ID - [facility] Lab Interpretation (test Normal code = 25246-9) [facility]2021-08-26 04:14:00 Test Item Value Reference Range Interpretation Comments Magnesium (test code = 2.0 mg/dL 1.6-2.6 01024-4) CARLEY (test code = CARLEY) Sales Enablement Consultant ID - [facility] Lab Interpretation (test Normal code = 49469-1) [place] [facility]2021-08-26 04:14:00 Test Item Value Reference Range Interpretation Comments Phosphorus (test code = 4.6 mg/dL 2.3-4.7 2777-1) CARLEY (test code = CARLEY) Sales Enablement Consultant ID - [facility] Lab Interpretation (test Normal code = 13342-5) [facility]2021-08-26 04:14:00 Test Item Value Reference Range Interpretation Comments Magnesium (test code = 2.0 mg/dL 1.6-2.6 40404-3) CARLEY (test code = CARLEY) Sales Enablement Consultant ID - VALDEZ Lab Interpretation (test Normal code = 81582-6) [facility] 04:14:00 Test Item Value Reference Range Interpretation Comments Phosphorus (test code = 4.6 mg/dL 2.3-4.7 2777-1) CARLEY (test code = CARLEY) Sales Enablement Consultant ID - VALDEZ Lab Interpretation (test Normal code = 47138-1) [facility]21-[facility] 04:14:00 Test Item Value Reference Range Interpretation Comments MAGNESIUM (BEAKER) (test code = 2.0 mg/dL 1.6-2.6 627) Sales Enablement Consultant ID - [facility] [id number] 04:14:00 Test Item Value Reference Range Interpretation Comments PHOSPHORUS (BEAKER) (test code = 4.6 mg/dL 2.3-4.7 604) Sales Enablement Consultant ID - [facility], [id number] 04:12:00 Test Item Value Reference Range Interpretation Comments PTH (test code = 2731-8) 237.8 pg/mL 8.5-72.5 H CARLEY (test code = CARLEY) Sales Enablement Consultant ID - VALDEZ Lab Interpretation (test Abnormal code = 28796-0) [facility], [id number] 04:12:00 Test Item Value Reference Range Interpretation Comments PTH (test code = 2731-8) 237.8 pg/mL 8.5-72.5 H CARLEY (test code = CARLEY) Sales Enablement Consultant ID Doretha KELLOGG Lab Interpretation (test Abnormal code = 85934-8) [facility], [id number] 04:12:00 Test Item Value Reference Range Interpretation Comments PTH (test code = 2731-8) 237.8 pg/mL 8.5-72.5 H CARLEY (test code = CARLEY) Sales Enablement Consultant ID - [facility] Lab Interpretation (test Abnormal code = 62976-9) [facility], [id number] 04:12:00 Test Item Value Reference Range Interpretation Comments PARATHYROID HORMONE INTACT 237.8 pg/mL 8.5-72.5 H (BEAKER) (test code = 577) Sales Enablement Consultant ID - VALDEZ Chen Prothrombin time/INR while on [id number] 03:58:00 Test Item Value Reference Interpretation Comments [...] valves. Lab Interpretation Abnormal (test code = 37785-4) [facility] Pro[facility]R while on [...] valves. Lab Interpretation Abnormal (test code = 15651-5) [facility] Pro[facility]rombin time/INR while on warfarin 2021-02-02 03:58:00 Test Item Value Reference Interpretation Comments Range Protime (test code = 19.8 See_Comment H [Autom ated 5902-2) message] The system which generated this result transmitted reference range : 11.9 - 14.2 seconds. The reference range was not used to interpret this result as normal/abnormal . INR (test code = 1.71 See_Comment [Automated 2501-6) message] The system which [...] valves. Lab Interpretation Abnormal (test code = 22261-1) [facility]PROTHROMBIN [facility]/[id number] 03:58:00 Test Item Value Reference Range Interpretation Comments PROTIME (BEAKER) 19.8 seconds 11.9-14.2 H (test code = 759) INR (BEAKER) (test 1.71 See_Comment [Automat ed message] code = 370) The system [employer] h generated this result transmitted ref erence range: <=5.90. The reference range was not used to int erpret this result as normal/abnormal . RECOMMENDED COUMADIN/WARFARIN INR THERAPY RANGESSTANDARD DOSE: 2.0 - 3.0 Includes: PROPHYLAXIS for venous thrombosis, systemic embolization; TREATMENT for venous thrombosis and/or pulmonary embolus.HIGH RISK: Target INR is 2.5-3.5 for patients with mechanical heart valves.POCT-GLUCOSE [id number] 03:56:00 Test Item Value Reference Range Interpretation Comments POC-GLUCOSE METER 94 mg/dL 70-110 : TESTED A T [facility] 6720 ([employer]) (test code = [place], 1538) [address]: Sales Enablement Consultant/Techni won ID = [id number] for Comp Emanuel tomlinson POCT-GLUCOSE [id number] 00:10:00 Test Item Value Reference Range Interpretation Comments POC-GLUCOSE METER 83 mg/dL 70-110 : TESTED A T [facility] 67[address] ([employer]) (test code = [facility] [place], 1538) 19[address]: Sales Enablement Consultant/Techni won ID = [id number] for Brody Ovalle POCT-GLUCOSE [id number] 15:37:00 Test Item Value Reference Range Interpretation Comments POC-GLUCOSE METER 73 mg/dL 70-110 : TESTED A T [facility] [address] (BEAKER) (test code = NORM Tenorio [facility] [place], 1538) [address]: Sales Enablement Consultant/Techni won ID = [id number] for Atwo od (V), Anurag POCT-GLUCOSE [id number] 14:59:00 Test Item Value Reference Range Interpretation Comments POC-GLUCOSE METER 68 mg/dL 70-110 L : TESTED A T [facility] 6720 (BEAKER) (test code = NORM Tenorio [facility], [place], 1538) [address]: Sales Enablement Consultant/Techni won ID = [id number] for Atwo od (V), Anurag CT, CHEST, WITHOUT [id number] 14:15:00ICU attending Dr. SteveUnlisted Reason for Exam - Click Yes and Enter Reason Below->YesUnlisted Reason for Exam->Evaluate pleural effusion [facility] : 1975 Sex: MFINAL REPORT TECHNIQUE: CT of the chest WITHOUT intravenous contrast. Dose [...] right. Groundglass attenuation throughout both lungs. PLEURA: Pr eviously described left hemothorax has essentially resolved with [...] MDReport Verified Date/Time: 02/01/2021 14:15:18 Reading Location: [facility] C013Y CT Body Reading Room CT chest without IV [id number] 14:15:00Interface, External Ris In - 02/01/2021 2:17 PM CDTFINAL REPORT TECHNIQUE: CT of the chest WITHOUT intravenous contrast. Dose [...] Anasarca. UPPER ABDOMEN: Persistent 1.5 x 1 cmhypodensity in the spleen, likely benign. IMPRESSION:Markedly decreased size of the hemopericardium,now trace. Essentially resolved left hemothorax. Small simple bilateral pleural effusions. Consolidative opacities in the dependent portions of both lungs likely represent atelectasis. Superimposed aspiration/pneumonia cannot be excluded. Groundglass attenuation in both lungs may represent pulmonary edema. Signed: Araseli Browning MDReport Verified Date/Time: 02/01/2021 14:15:18 Reading Location: [place] [id number] CT [facility] 2021-02-01 14:15:00Interface, External Ris In - 02/01/2021 2:17 PM CDTFINAL REPORT TECHNIQUE: CT of the chest WITHOUT intravenous contrast. Dose [...] Anasarca. UPPER ABDOMEN: Persistent 1.5 x 1 cmhypodensity in the spleen, likely benign. IMPRESSION:Markedly decreased size of the hemopericardium,now trace. Essentially resolved left hemothorax. Small simple bilateral pleural effusions. Consolidative opacities in the dependent portions of both lungs likely represent atelectasis. Superimposed aspiration/pneumonia cannot be excluded. Groundglass attenuation in both lungs may represent pulmonary edema. Signed: Araseli Browningort Verified Date/Time: 02/01/2021 14:15:18 Reading Location: [facility] B1 C013Y CT [facility] 2021-02-01 14:15:00Interface, External Ris In - 02/01/2021 2:17 PM CDTFINAL REPORT TECHNIQUE: CT of the chest WITHOUT intravenous contrast. Dose [...] Anasarca. UPPER ABDOMEN: Persistent 1.5 x 1 cmhypodensity in the spleen, likely benign. IMPRESSION:Markedly decreased size of the hemopericardium,now trace. Essentially resolved left hemothorax. Small simple bilateral pleural effusions. Consolidative opacities in the dependent portions of both lungs likely represent atelectasis. Superimposed aspiration/pneumonia cannot be excluded. Groundglass attenuation in both lungs may represent pulmonary edema. Signed: Araseli Browning Verified Date/Time: 02/01/2021 14:15:18 Reading Location: [facility] B1 C013Y CT Body [facility] [id number] 11:48:00 Test Item Value Reference Range Interpretation Comments POC-GLUCOSE METER 64 mg/dL 70-110 L : TESTED A T [facility] 6720 (BEAKER) (test code = NORM [place], 1538) [address]: Sales Enablement Consultant/Techni won ID = [id number] for Edwin gardner (contract)Terence RAD, CHEST, 1 VIEW, NON [id number] 07:53:00Reason for exam:- >intubatedShould this be performed at the bedside?->Yes [facility] : 1975 Sex: MFINAL REPORT RAD, CHEST, 1 VIEW, NON DEPT INDICATION: intubated COMPARISON: Prior day's exam FINDINGS: Portable frontal view of the chest. IMPRESSION: Support Lines: Dialysis catheter tip overlies right atrium. Sternotomy wires. Lungs and pleura: Bilateral airspace opacities concerningfor multifocal pneumonia versus multifocal edema. Bilateral effusions are increased. No pneumothorax.Heart and mediastinum: Stable contours. Stable surgical changes.Additional findings: None. Signed: Re Cantu Verified Date/Time: 02/01/2021 07:53:28 Reading Location: [facility] Radiology Reading Room CALCIUM, [id number] 05:25:00 Test Item Value Reference Range Interpretation Comments CALCIUM IONIZED (BEAKER) (test 1.09 mmol/L 1.12-1.27 L code = 698) PH, BLOOD (BEAKER) (test code = 7.44 1810) BASIC METABOLIC [id number] 05:19:00 Test Item Value Reference Range Interpretation [...] S NOT APPLICABLE FOR DIALYSIS PATIEN TS. Sales Enablement Consultant ID - PIRAFY [id number] 05:13:00 Test Item Value Reference Range Interpretation Comments MAGNESIUM (BEAKER) (test code = 2.0 mg/dL 1.6-2.6 627) Sales Enablement Consultant ID - PIRAYF [id number] 05:13:00 Test Item Value Reference Range Interpretation Comments PHOSPHORUS (BEAKER) (test code = 4.9 mg/dL 2.3-4.7 H 604) Sales Enablement Consultant ID - LINA LPROTHROMBIN TIME/[id number] 04:50:00 Test Item Value Reference Range Interpretation Comments PROTIME (BEAKER) 17.7 seconds 11.9-14.2 H (test code = 759) INR (BEAKER) (test 1.48 See_Comment [Automat ed message] code = 370) The system [employer] generated this result transmitted ref erence range: <=5.90. The reference range was not used to int erpret this result as normal/abnormal . RECOMMENDED COUMADIN/WARFARIN INR THERAPY RANGESSTANDARD DOSE: 2.0 - 3.0 Includes: PROPHYLAXIS for venous thrombosis, systemic embolization; TREATMENT for venous thrombosis and/or pulmonary embolus.HIGH RISK: Target INR is 2.5-3.5 for patients with mechanical heart valves.CBC W/PLT COUNT & AUTO [id number] 04:41:00 Test Item Value Reference Range Interpretation [...] PERCENT (BEAKER) (test code = 2801) POCT-GLUCOSE [id number] 01:16:00 Test Item Value Reference Range Interpretation Comments POC-GLUCOSE METER 79 mg/dL 70-110 : TESTED A T [facility] 6720 (BEAKER) (test code = NORM Tenorio [facility] [place], 1538) [address]83: Sales Enablement Consultant/Techni won ID = [id number] for MUSE BE, CRESCENCIO POCT-GLUCOSE [id number] 22:03:00 Test Item Value Reference Range Interpretation Comments POC-GLUCOSE METER 83 mg/dL 70-110 : TESTED A T [facility] 6720 (BEAKER) (test code = [facility] [employer] [facility], [place], 1538) [address]80: Sales Enablement Consultant/Techni won ID = [id number] for MUSE BE, CRESCENCIO Hemoglobin and [id number] 17:25:00 Test Item Value Reference Range Interpretation [...] = 4544-3) CARLEY (test code = CARLEY) Sales Enablement Consultant ID - [id number] Lab Interpretation Abnormal (test code = 97407-9) [facility] and [id number] 17:25:00 Test Item Value Reference Range Interpretation [...] = 4544-3) CARLEY (test code = CARLEY) Sales Enablement Consultant ID - [id number] Lab Interpretation Abnormal (test code = 26431-1) [facility]Hem[facility] and [id number] 17:25:00 Test Item Value Reference Range Interpretation [...] = 4544-3) CARLEY (test code = CARLEY) Sales Enablement Consultant ID - [id number] Lab Interpretation Abnormal (test code = 61005-4) [facility]HEMOGLOBIN AND [id number] 17:25:00 Test Item Value Reference Range Interpretation Comments HEMOGLOBIN (BEAKER) (test code = 7.5 GM/DL 13.7-17.5 L 410) HEMATOCRIT (BEAKER) (test code = 23.1 % 40.1-51.0 L 411) Sales Enablement Consultant ID - [id number]-GLUCOSE [id number] 11:36:00 Test Item Value Reference Range Interpretation Comments POC-GLUCOSE METER 105 mg/dL 70-110 : TESTED A T [facility] 6720 (BEAKER) (test code = [employer] [facility] [place], 1538) 61898: Sales Enablement Consultant/Techni won ID = [id number] for RONAL PEREZ POCT-GLUCOSE [id number] 07:26:00 Test Item Value Reference Range Interpretation Comments POC-GLUCOSE METER 69 mg/dL 70-110 L : TESTED A T [facility] 6720 (BEAKER) (test code = [employer] [facility] [place], 1538) 10282: Sales Enablement Consultant/Techni won ID = [id number] for RONAL BROCK BASIC METABOLIC [id number] 05:40:00 Test Item Value Reference Range Interpretation [...] S NOT APPLICABLE FOR DIALYSIS PATIEN TS. Sales Enablement Consultant ID - LINA [id number] 05:24:00 Test Item Value Reference Range Interpretation Comments MAGNESIUM (BEAKER) (test code = 2.0 mg/dL 1.6-2.6 627) Sales Enablement Consultant ID - SAROJRAFY [id number] 05:24:00 Test Item Value Reference Range Interpretation Comments PHOSPHORUS (BEAKER) (test code = 4.1 mg/dL 2.3-4.7 604) Sales Enablement Consultant ID - LINA LCBC W/PLT COUNT & AUTO [id number] 05:04:00 Test Item Value Reference Range Interpretation [...] (BEAKER) (test code = 2801) Lactic Acid, [id number] 04:53:00 Test Item Value Reference Range Interpretation Comments Lactate, Art (test code = 0.4 mmol/L 0.5-2.2 L 2874) CARLEY (test code = CARLEY) Sales Enablement Consultant ID - PIAYA L Lab Interpretation (test Abnormal code = 49548-0) [facility], [id number] 04:53:00 Test Item Value Reference Range Interpretation Comments Lactate, Art (test code = 0.4 mmol/L 0.5-2.2 L 2874) CARLEY (test code = CARLEY) Sales Enablement Consultant ID - PIAYA L Lab Interpretation (test Abnormal code = 28238-1) [facility] Acid, [id number] 04:53:00 Test Item Value Reference Range Interpretation Comments Lactate, Art (test code = 0.4 mmol/L 0.5-2.2 L 2874) CARLEY (test code = CARLEY) Sales Enablement Consultant ID - LINA Martinez Lab Interpretation (test Abnormal code = 76224-8) [facility] campusLACTIC ACID, [id number] 04:53:00 Test Item Value Reference Range Interpretation Comments LACTATE BLOOD ARTERIAL (2) 0.4 mmol/L 0.5-2.2 L (BEAKER) (test code = 2874) Sales Enablement Consultant ID Doretha [id number] 04:49:00 Test Item Value Reference Range Interpretation Comments PTT (test code = 40.1 See_Comment H [Automated message] 63073-2) The system Zo[employer] generated this result transmitted ref erence range: 22.5 - 3 6.0 seconds. The reference range was not used to int erpret this result as normal/abnormal . Lab Interpretation (test Abnormal code = 87212-9) [facility] campusPT/[id number] 04:49:00 Test Item Value Reference Interpretation Comments Range Protime (test code = 17.9 See_Comment H [Autom ated 5902-2) message] The system which generated this result transmitted reference range : 11.9 - 14.2 seconds. The reference range was not used to interpret this result as normal/abnormal . INR (test code = 1.50 See_Comment [Automated 5221-6) message] The system which generated this result transmitted reference range : <=5.90. The reference range was not used to interpret this result as normal/abnormal . PTT (test code = 40.1 See_Comment H [Automated 66997-4) message] The system which generated this result [...] valves. Lab Interpretation Abnormal (test code = 35042-7) [facility]aPTT2021-08-24 04:49:00 Test Item Value Reference Range Interpretation Comments PTT (test code = 40.1 See_Comment H [Automated message] 19762-9) The system [employer] generated this result transmitted ref erence range: 22.5 - 3 6.0 seconds. The reference range was not used to int erpret this result as normal/abnormal . Lab Interpretation (test Abnormal code = 16319-1) [facility] campusPT/[id number] 04:49:00 Test Item Value Reference Interpretation Comments Range Protime (test code = 17.9 See_Comment H [Autom ated 5902-2) message] The system which generated this result transmitted reference range : 11.9 - 14.2 seconds. The reference range was not used to interpret this result as normal/abnormal . INR (test code = 1.50 See_Comment [Automated 5241-6) message] The system which generated this result transmitted reference range : <=5.90. The reference range was not used to interpret this result as normal/abnormal . PTT (test code = 40.1 See_Comment H [Automated 55756-1) message] The system which generated this result [...] valves. Lab Interpretation Abnormal (test code = 98973-1) [facility]aPTT2021-[facility] 04:49:00 Test Item Value Reference Range Interpretation Comments PTT (test code = 40.1 See_Comment H [Automated message] 85073-5) The system [employer] generated this result transmitted ref erence range: 22.5 - 3 6.0 seconds. The reference range was not used to int erpret this result as normal/abnormal . Lab Interpretation (test Abnormal code = 61123-0) [facility] campusPT/[id number] 04:49:00 Test Item Value Reference Interpretation Comments Range Protime (test code = 17.9 See_Comment H [Autom ated 5902-2) message] The system which generated this result transmitted reference range : 11.9 - 14.2 seconds. The reference range was not used to interpret this result as normal/abnormal . INR (test code = 1.50 See_Comment [Automated 6301-6) message] The system which generated this result transmitted reference range : <=5.90. The reference range was not used to interpret this result as normal/abnormal . PTT (test code = 40.1 See_Comment H [Automated 83979-0) message] The system which generated this result [...] valves. Lab Interpretation Abnormal (test code = 79994-8) [facility]APTT2021-08-24 04:49:00 Test Item Value Reference Range Interpretation Comments PARTIAL THROMBOPLASTIN TIME 40.1 seconds 22.5-36.0 H (BEAKER) (test code = 760) PT/[id number] 04:49:00 Test Item Value Reference Range Interpretation [...] 2.5-3.5 for patients with mechanical heart valves.PROTHROMBIN TIME/[id number] 04:48:00 Test Item Value Reference Range Interpretation Comments PROTIME (BEAKER) 17.9 seconds 11.9-14.2 H (test code = 759) INR (BEAKER) (test 1.50 See_Comment [Automat ed message] code = 370) The system [facility] SOLO generated this result transmitted ref erence range: <=5.90. The reference range was not used to int erpret this result as normal/abnormal . RECOMMENDED COUMADIN/WARFARIN INR THERAPY RANGESSTANDARD DOSE: 2.0 - 3.0 Includes: PROPHYLAXIS for venous thrombosis, systemic embolization; TREATMENT for venous thrombosis and/or pulmonary embolus.HIGH RISK: Target INR is 2.5-3.5 for patients with mechanical heart valves.Blood gas, [id number] 04:44:00 Test Item Value Reference Range Interpretation Comments pH, Arterial (test code 7.49 7.35-7.45 H = 2744-1) pCO2, Arterial (test 37 See_Comment [Autom ated message] code = 2019-) The system [facility] generated this result transmit ari reference range : 35 - 45 mm Hg. The reference range was not used to interpret this result as normal/abnormal . pO2, Arterial (test 130 See_Comment H [Automa ari message] code = 2703-7) The system [facility] generated this result transmit ari reference [...] 35 Lab Interpretation Abnormal (test code = 26012-8) [facility] campusBlood gas, [id number] 04:44:00 Test Item Value Reference Range Interpretation Comments pH, Arterial (test code 7.49 7.35-7.45 H = 2744-1) pCO2, Arterial (test 37 See_Comment [Autom ated message] code = 2019-8) The system [facility] generated this result transmit ari reference range : 35 - 45 mm Hg. The reference range was not used to interpret this result as normal/abnormal . pO2, Arterial (test 130 See_Comment H [Automa ari message] code = 2703-7) The system [employer] generated this result transmit ari reference range [...] 35 Lab Interpretation Abnormal (test code = 20465-4) [facility] campusBlood gas, [id number] 04:44:00 Test Item Value Reference Range Interpretation Comments pH, Arterial (test code 7.49 7.35-7.45 H = 2744-1) pCO2, Arterial (test 37 See_Comment [Autom ated message] code = 2019-8) The system [employer] generated this result transmit ari reference range : 35 - 45 mm Hg. The reference range was not used to interpret this result as normal/abnormal . pO2, Arterial (test 130 See_Comment H [Automa ari message] code = 2703-7) The system [employer] generated this result transmit ari reference range [...] 35 Lab Interpretation Abnormal (test code = 40096-4) [facility] campusBLOOD GAS, [id number] 04:44:00 Test Item Value Reference Range Interpretation [...] (BEAKER) (test code = 1819) 35.0 CALCIUM, [id number] 04:44:00 Test Item Value Reference Range Interpretation Comments CALCIUM IONIZED (BEAKER) (test 1.11 mmol/L 1.12-1.27 L code = 698) PH, BLOOD (BEAKER) (test code = 7.49 1810) RAD, CHEST, 1 VIEW, NON [id number] 04:44:00Reason for exam:- >intubatedShould this be performed at the bedside?->Yes [facility] : 1975 Sex: MFINAL REPORT Chest one view. Clinical history: intubated Comparison: Chest radiograph 01/30/2021. Technique: A single frontal view of the chest was obtained. Findings:There is a right IJ central venous catheter with tip in the right atrium. There is a left axillary line. There has beeninterval removal of enteric tube. An endotracheal tube is not identified. There is a cardiac valve prosthesis. There are median sternotomy wires.The cardiomediastinal contours are stable. There are persistent diffuse bilateral airspace opacities. There are small bilateral perfusions. There is no pneumothorax. Signed: Amuta, Buck MDReport Verified Date/Time: 01/31/2021 04:44:53 Electronically signedby: BUCK WARREN MD on 01/31/2021 04:44 AMPrepare Leuko-Red [id number] 23:54:00 Test Item Value Reference Range Interpretation Comments CROSSMATCH (test code = 2264) COMPATIBLE Unit ABO (test code = O Neg 2766441) UNIT NUMBER (test code = [id number] 934-0) Status (test code = 2843856) TX_TIMEINCHART Blood Bank Product (test code RED BLOOD CELLS = 2263) PRODUCT CODE (test code = [id number] 933-2) [facility] campusPrepare Leuko-Red [id number] 23:54:00 Test Item Value Reference Range Interpretation Comments CROSSMATCH (test code = 2264) COMPATIBLE Unit ABO (test code = O Neg 0060727) UNIT NUMBER (test code = [id number] 934-0) Status (test code = 6064091) TX_TIMEINCHART Blood Bank Product (test code RED BLOOD CELLS = 2263) PRODUCT CODE (test code = V4909K82 933-2) [facility]Prep[facility] Leuko-Red [id number] 23:54:00 Test Item Value Reference Range Interpretation Comments CROSSMATCH (test code = 2264) COMPATIBLE Unit ABO (test code = O Neg 4080539) UNIT NUMBER (test code = [id number] 934-0) Status (test code = 8058892) TX_TIMEINCHART Blood Bank Product (test code RED BLOOD CELLS = 2263) PRODUCT CODE (test code = [id number] 933-2) [facility]HGB/HCT (H&H)-Stat [id number] 21:11:00 Test Item Value Reference Range Interpretation Comments Hemoglobin (test code = 7.8 See_Comment L [Au tomated message] 786-4) The system [employer] generated this result transmitted ref erence range: 13.0 - 1 6.8 GM/DL. The refe rence range was not u sed to interpret this result as normal/abnor mal. Hematocrit (test code = 23.0 % 40-50 L 4544-3) Lab Interpretation (test Abnormal code = 97644-0) [facility] ([facility]H)-Stat [id number] 21:11:00 Test Item Value Reference Range Interpretation Comments Hemoglobin (test code = 7.8 See_Comment L [Au tomated message] 786-4) The system [employer] generated this result transmitted ref erence range: 13.0 - 1 6.8 GM/DL. The refe rence range was not u sed to interpret this result as normal/abnor mal. Hematocrit (test code = 23.0 % 40-50 L 4544-3) Lab Interpretation (test Abnormal code = 81365-3) [facility] ([facility]H)-Stat [id number] 21:11:00 Test Item Value Reference Range Interpretation Comments Hemoglobin (test code = 7.8 See_Comment L [Au tomated message] 786-4) The system [employer] generated this result transmitted ref erence range: 13.0 - 1 6.8 GM/DL. The refe rence range was not u sed to interpret this result as normal/abnor mal. Hematocrit (test code = 23.0 % 40-50 L 4544-3) Lab Interpretation (test Abnormal code = 09059-6) [facility] campusBLOOD GAS, [id number] 21:11:00 Test Item Value Reference Range Interpretation [...] = 1819) 35.0 HGB/HCT (H&H) - STAT [id number] 21:11:00 Test Item Value Reference Range Interpretation Comments HEMOGLOBIN (BEAKER) (test code = 7.8 GM/DL 13.0-16.8 L 410) HEMATOCRIT (BEAKER) (test code = 23.0 % 40.0-50.0 L 411) Glucose-Stat [id number] 21:10:00 Test Item Value Reference Range Interpretation Comments Glucose (test code = 2345-7) 106 mg/dL 70-110 Lab Interpretation (test code = Normal 99913-0) [facility] [id number] 21:10:00 Test Item Value Reference Range Interpretation Comments Sodium (test code = 2951-2) 135 meq/L 136-145 L Lab Interpretation (test code = Abnormal 65331-7) [facility]Potassium-Stat [id number] 21:10:00 Test Item Value Reference Range Interpretation Comments Potassium (test code = 2823-3) 3.8 meq/L 3.6-5.5 Lab Interpretation (test code = Normal 92758-0) [facility]Glucose-Stat [id number] 21:10:00 Test Item Value Reference Range Interpretation Comments Glucose (test code = 2345-7) 106 mg/dL 70-110 Lab Interpretation (test code = Normal 32804-1) [facility]Stat [id number] 21:10:00 Test Item Value Reference Range Interpretation Comments Sodium (test code = 2951-2) 135 meq/L 136-145 L Lab Interpretation (test code = Abnormal 21737-9) [facility]Potassium-Stat [id number] 21:10:00 Test Item Value Reference Range Interpretation Comments Potassium (test code = 2823-3) 3.8 meq/L 3.6-5.5 Lab Interpretation (test code = Normal 31623-5) [facility]Glucose-Stat [id number] 21:10:00 Test Item Value Reference Range Interpretation Comments Glucose (test code = 2345-7) 106 mg/dL 70-110 Lab Interpretation (test code = Normal 74480-1) [facility]Stat [id number] 21:10:00 Test Item Value Reference Range Interpretation Comments Sodium (test code = 2951-2) 135 meq/L 136-145 L Lab Interpretation (test code = Abnormal 05762-0) [facility] campusPotassium-Stat [id number] 21:10:00 Test Item Value Reference Range Interpretation Comments Potassium (test code = 2823-3) 3.8 meq/L 3.6-5.5 Lab Interpretation (test code = Normal 24146-2) [facility]GLUCOSE-STAT [id number] 21:10:00 Test Item Value Reference Range Interpretation Comments GLUCOSE RANDOM (BEAKER) (test code 106 mg/dL 70-110 = 652) SODIUM NA-STAT [id number] 21:10:00 Test Item Value Reference Range Interpretation Comments SODIUM (BEAKER) (test code = 381) 135 meq/L 136-145 L POTASSIUM-STAT [id number] 21:10:00 Test Item Value Reference Range Interpretation Comments POTASSIUM (BEAKER) (test code = 3.8 meq/L 3.6-5.5 379) BASIC METABOLIC [id number] 19:47:00 Test Item Value Reference Range Interpretation [...] S NOT APPLICABLE FOR DIALYSIS PATIEN TS. Sales Enablement Consultant ID - [id number] 19:47:00 Test Item Value Reference Range Interpretation Comments MAGNESIUM (BEAKER) (test code = 1.8 mg/dL 1.6-2.6 627) Sales Enablement Consultant ID - DBPROTHROMBIN TIME/[id number] 19:36:00 Test Item Value Reference Range Interpretation Comments PROTIME (BEAKER) 19.1 seconds 11.9-14.2 H (test code = 759) INR (BEAKER) (test 1.63 See_Comment [Automat ed message] code = 370) The system [employer] generated this result transmitted ref erence range: <=5.90. The reference range was not used to int erpret this result as normal/abnormal . RECOMMENDED COUMADIN/WARFARIN INR THERAPY RANGESSTANDARD DOSE: 2.0 - 3.0 Includes: PROPHYLAXIS for venous thrombosis, systemic embolization; TREATMENT for venous thrombosis and/or pulmonary embolus.HIGH RISK: Target INR is 2.5-3.5 for patients with mechanical heart valves.CALCIUM, [id number] 19:26:00 Test Item Value Reference Range Interpretation Comments CALCIUM IONIZED (BEAKER) (test 1.15 mmol/L 1.12-1.27 code = 698) PH, BLOOD (BEAKER) (test code = 7.50 5410) POCT-GLUCOSE [id number] 18:48:00 Test Item Value Reference Range Interpretation Comments POC-GLUCOSE METER 94 mg/dL 70-110 : TESTED A T [facility] 6720 (BEAKER) (test code = RAYMONJOBY Tenorio [facility] [place], 1538) [address]: Sales Enablement Consultant/Techni won ID = [id number] for Gianfranco s, Paige POCT-GLUCOSE [id number] 12:38:00 Test Item Value Reference Range Interpretation Comments POC-GLUCOSE METER 111 mg/dL 70-110 H : TESTED A T [facility] 6720 (BEAKER) (test code = NORM Tenorio [facility], [place], 1538) 67592: Sales Enablement Consultant/Techni won ID = [id number] for Da vis, Paige PROTHROMBIN [id number] 12:37:00 Test Item Value Reference Range Interpretation Comments PROTIME (BEAKER) 19.6 seconds 11.9-14.2 H (test code = 759) INR (BEAKER) (test 1.68 See_Comment [Automat ed message] code = 370) The system Zoondy generated this result transmitted ref erence range: <=5.90. The reference range was not used to int erpret this result as normal/abnormal . RECOMMENDED COUMADIN/WARFARIN INR THERAPY RANGESSTANDARD DOSE: 2.0 - 3.0 Includes: PROPHYLAXIS for venous thrombosis, systemic embolization; TREATMENT for venous thrombosis and/or pulmonary embolus.HIGH RISK: Target INR is 2.5-3.5 for patients with mechanical heart valves.POCT-GLUCOSE [id number] 06:19:00 Test Item Value Reference Range Interpretation Comments POC-GLUCOSE METER 100 mg/dL 70-110 : TESTED Elias T [facility] 6720 (BEAKER) (test code = NORM [place], 1538) 48979: Sales Enablement Consultant/Techni won ID = [id number] for VINOD CHAUDHARY BLOOD GAS, [id number] 05:07:00 Test Item Value Reference Range Interpretation [...] 1819) 60.0 RAD, CHEST, 1 VIEW, NON [id number] 04:36:00Reason for exam:- >intubatedShould this be performed at the bedside?->Yes [facility] : 1975 Sex: [...] bilateral pleural effusions. There is no pneumothorax. Signed:Buck Warren Verified Date/Time: 01/30/2021 04:36:28 BASIC METABOLIC [id number] 02:59:00 Test Item Value Reference Range Interpretation [...] S NOT APPLICABLE FOR DIALYSIS PATIEN TS. Sales Enablement Consultant ID - [id number] 02:45:00 Test Item Value Reference Range Interpretation Comments MAGNESIUM (BEAKER) (test code = 2.1 mg/dL 1.6-2.6 627) Sales Enablement Consultant ID - [id number] 02:45:00 Test Item Value Reference Range Interpretation Comments PHOSPHORUS (BEAKER) (test code = 4.6 mg/dL 2.3-4.7 604) Sales Enablement Consultant ID - [id number] 02:42:00 Test Item Value Reference Range Interpretation Comments PARTIAL THROMBOPLASTIN TIME 44.4 seconds 22.5-36.0 H (BEAKER) (test code = 760) PT/[id number] 02:42:00 Test Item Value Reference Range Interpretation [...] 2.5-3.5 for patients with mechanical heart valves.PROTHROMBIN TIME/[id number] 02:41:00 Test Item Value Reference Range Interpretation Comments PROTIME (BEAKER) 20.9 seconds 11.9-14.2 H (test code = 759) INR (BEAKER) (test 1.83 See_Comment [Automat ed message] code = 370) The system Zoondy generated this result transmitted ref erence range: <=5.90. The reference range was not used to int erpret this result as normal/abnormal . RECOMMENDED COUMADIN/WARFARIN INR THERAPY RANGESSTANDARD DOSE: 2.0 - 3.0 Includes: PROPHYLAXIS for venous thrombosis, systemic embolization; TREATMENT for venous thrombosis and/or pulmonary embolus.HIGH RISK: Target INR is 2.5-3.5 for patients with mechanical heart valves.LACTIC ACID, [id number] 02:40:00 Test Item Value Reference Range Interpretation Comments LACTATE BLOOD ARTERIAL (2) 0.6 mmol/L 0.5-2.2 (BEAKER) (test code = 2874) Sales Enablement Consultant ID - DBCALCIUM, [id number] 02:34:00 Test Item Value Reference Range Interpretation Comments CALCIUM IONIZED (BEAKER) (test 1.15 mmol/L 1.12-1.27 code = 698) PH, BLOOD (BEAKER) (test code = 7.47 1810) BLOOD GAS, [id number] 02:34:00 Test Item Value Reference Range Interpretation [...] 1819) 50.0 CBC W/PLT COUNT & AUTO [id number] 02:33:00 Test Item Value Reference Range Interpretation [...] (BEAKER) (test code = 2801) Oxygen saturation, [id number] 02:32:00 Test Item Value Reference Range Interpretation Comments O2 Saturation (Measured) (test code = 66.8 % 04645-3) [facility] [id number] 02:32:00 Test Item Value Reference Range Interpretation Comments O2 Saturation (Measured) (test code = 66.8 % 02388-8) [facility], [id number] 02:32:00 Test Item Value Reference Range Interpretation Comments O2 Saturation (Measured) (test code = 66.8 % 51972-3) [facility]OXYGEN SATURATION, [id number] 02:32:00 Test Item Value Reference Range Interpretation Comments O2 SATURATION (MEASURED) (BEAKER) 66.8 % (test code = 1455) CT, BRAIN, WITHOUT [id number] 02:20:00Unlisted Reason for Exam - Click Yes and Enter Reason Below->No [facility] : 1975 Sex: MFINAL REPORT EXAM: CT, CT Angio, Brain. CT Carotid Angio CLINICAL HISTORY: Subarachnoid hemorrhage, follow-up. Unlisted Reason for Examr/o mycotic aneurysm. COMPARISON: Noncontrast HeadCT 01/29/2021, 9:24 AM. TECHNIQUE: Noncontrast head CT [...] The basal cisterns are patent. There is nolarge demarcated acute territorial infarct. The visualized orbits are normal. The visualized paranasal sinuses and tympanomastoid cavities are clear. The skull base and calvarium are intact. There is an indwelling nasogastric tube. CTA head: There is mild intracranial calcific atherosclerosis. There is good flow related enhancement of the bilateral anterior, middle and posterior cerebral arteries andwithin the basilar artery. The intracranial and skull base internal carotid arteries as well as the vertebral arteries demonstrate normal flow-related enhancement.The dural venous sinuses are patent.There is no vessel occlusion or flow-limiting stenosis.There is no aneurysm. IMPRESSION: Noncontrast CThead:Small volume left parietal subarachnoid hemorrhage, not significantly changed.Mild white mattermicrovascular ischemic changes.Chronic infarcts as described. CTA head:No intracranial aneurysm. Sign ed: Buck Warreneport Verified Date/Time: 01/30/2021 02:20:02 CT, CTANGIO [id number] 02:20:00Unlisted Reason for Exam - Click Yes and Enter Reason Below->YesUnlisted Reason for Exam->r/o mycotic anuerysm [facility] : 1975 Sex: MFINAL REPORT EXAM: CT, CT Angio, Brain. CT Carotid Angio CLINICAL HISTORY: Subarachnoid hemorrhage, follow-up. Unlisted Reason for Examr/o mycotic aneurysm. COMPARISON: Noncontrast HeadCT 01/29/2021, 9:24 AM. TECHNIQUE: Noncontrast head CT [...] The basal cisterns are patent. There is nolarge demarcated acute territorial infarct. The visualized orbits are normal. The visualized paranasal sinuses and tympanomastoid cavities are clear. The skull base and calvarium are intact. There is an indwelling nasogastric tube. CTA head: There is mild intracranial calcific atherosclerosis. There is good flow related enhancement of the bilateral anterior, middle and posterior cerebral arteries andwithin the basilar artery. The intracranial and skull base internal carotid arteries as well as the vertebral arteries demonstrate normal flow-related enhancement.The dural venous sinuses are patent.There is no vessel occlusion or flow-limiting stenosis.There is no aneurysm. IMPRESSION: Noncontrast CThead:Small volume left parietal subarachnoid hemorrhage, not significantly changed.Mild white mattermicrovascular ischemic changes.Chronic infarcts as described. CTA head:No intracranial aneurysm. Sign ed: Buck Warren MDReport Verified Date/Time: 01/30/2021 02:20:02 . [facility] [id number] 02:20:00Interface, External Ris In - 01/30/2021 2:23 AM CDTFINAL REPORT EXAM: CT, CT Angio, Brain. CT Carotid Angio CLINICAL HISTORY: Subarachnoid [...] IMPRESSION: Noncontrast CT head:Small volume left parietal subarachnoidhemorrhage, not significantly changed.Mild white matter microvascular ischemic changes.Chronic infarcts as described. CTA head:No intracranial aneurysm. Signed: Buck Warren MDReport Verified Date/Time: 01/30/2021 02:20:02 [facility] 2021-01-30 02:20:00Interface, External Ris In - 01/30/2021 2:23 AM CDTFINAL REPORT EXAM: CT, CT Angio, Brain. CT Carotid Angio CLINICAL HISTORY: Subarachnoid [...] There is no large demarcated acute territorial infarct.The visualized orbits are normal. The visualized paranasal sinuses and tympanomastoid cavities are clear. The skull base and calvarium are intact. There is an indwelling nasogastric tube. CTA head: There is mild intracranial calcific atherosclerosis. There is good flow related enhancement of the bilateral anterior, middle and posterior cerebral arteries and within the basilar artery. The intracranialand skull base internal carotid arteries as well as the vertebral arteries demonstrate normal flow-related enhancement.The dural venous sinuses are patent.There is no vessel occlusion or flow-limiting stenosis.There is no aneurysm. IMPRESSION: Noncontrast CT head:Small volume left parietal subarachnoid hemorrhage, not significantly changed.Mild white matter microvascular ischemic changes.Chronic infarcts as described. CTA head:No intracranial aneurysm. Signed: Buck Warren MDReport Verified Date/Time: 01/30/2021 02:20:02 [facility] [id number] 02:20:00 Interface, External Ris In - 01/30/2021 2:23 AM CDTFINAL REPORT EXAM: CT, CT Angio, Brain. CT Carotid Angio CLINICAL HISTORY: Subarachnoid [...] IMPRESSION: Noncontrast CT head:Small volume left parietal subarachnoidhemorrhage, not significantly changed.Mild white matter microvascular ischemic changes.Chronic infarcts as described. CTA head:No intracranial aneurysm. Signed: Buck Warren [facility] [place] Verified Date/Time: 01/30/2021 02:20:02 [facility] 2021-01-30 02:20:00Interface, External Ris In - 01/30/2021 2:23 AM CDTFINAL REPORT EXAM: CT, CT Angio, Brain. CT Carotid Angio CLINICAL HISTORY: Subarachnoid [...] IMPRESSION: Noncontrast CT head:Small volume left parietal subarachnoidhemorrhage, not significantly changed.Mild white matter microvascular ischemic changes.Chronic infarcts as described. CTA head:No intracranial aneurysm. Signed: Buck Warren [facility] Verified Date/Time: 01/30/2021 02:20:02 [facility] [id number] 02:20:00 Interface, External Ris In - 01/30/2021 2:23 AM CDTFINAL REPORT EXAM: CT, CT Angio, Brain. CT Carotid Angio CLINICAL HISTORY: Subarachnoid [...] IMPRESSION: Noncontrast CT head:Small volume left parietal subarachnoidhemorrhage, not significantly changed.Mild white matter microvascular ischemic changes.Chronic infarcts as described. CTA head:No intracranial aneurysm. Signed: Buck Warren [facility] Verified Date/Time: 01/30/2021 02:20:02 [facility] without IV contrast 2021-01-30 02:20:00Interface, External Ris In - 01/30/2021 2:23 AM CDTFINAL REPORT EXAM: CT, CT Angio, Brain. CT Carotid Angio CLINICAL HISTORY: Subarachnoid [...] IMPRESSION: Noncontrast CT head:Small volume left parietal subarachnoidhemorrhage, not significantly changed.Mild white matter microvascular ischemic changes.Chronic infarcts as described. CTA head:No intracranial aneurysm. Signed: Buck Warrenday [facility] Verified Date/Time: 01/30/2021 02:20:02 [facility] CampusPO[facility] [id number] 23:30:00 Test Item Value Reference Range Interpretation Comments POC-GLUCOSE METER 107 mg/dL 70-110 : TESTED A T [facility] 6720 (BEAKER) (test code = NORM Tenorio [facility] [place], 1538) 40105: Sales Enablement Consultant/Techni won ID = [id number] for VINOD CHAUDHARY CBC W/PLT COUNT & AUTO [id number] 19:35:00 Test Item Value Reference Range Interpretation [...] PERCENT (BEAKER) (test code = 2801) POCT-GLUCOSE [id number] 18:16:00 Test Item Value Reference Range Interpretation Comments POC-GLUCOSE METER 99 mg/dL 70-110 : TESTED A T [facility] 6720 (BEAKER) (test code = NORM [place], 1538) 76092: Sales Enablement Consultant/Techni won ID = [id number] for RONAL BROCK PROTHROMBIN TIME/[id number] 18:16:00 Test Item Value Reference Range Interpretation Comments PROTIME (BEAKER) 21.4 seconds 11.9-14.2 H (test code = 759) INR (BEAKER) (test 1.89 See_Comment [Automat ed message] code = 370) The system Zoondy generated this result transmitted ref erence range: <=5.90. The reference range was not used to int erpret this result as normal/abnormal . RECOMMENDED COUMADIN/WARFARIN INR THERAPY RANGESSTANDARD DOSE: 2.0 - 3.0 Includes: PROPHYLAXIS for venous thrombosis, systemic embolization; TREATMENT for venous thrombosis and/or pulmonary embolus.HIGH RISK: Target INR is 2.5-3.5 for patients with mechanical heart valves.PROTHROMBIN TIME/[id number] 15:23:00 Test Item Value Reference Range Interpretation Comments PROTIME (BEAKER) 21.5 seconds 11.9-14.2 H (test code = 759) INR (BEAKER) (test 1.90 See_Comment [Automat ed message] code = 370) The system Zoondy generated this result transmitted ref erence range: <=5.90. The reference range was not used to int erpret this result as normal/abnormal . RECOMMENDED COUMADIN/WARFARIN INR THERAPY RANGESSTANDARD DOSE: 2.0 - 3.0 Includes: PROPHYLAXIS for venous thrombosis, systemic embolization; TREATMENT for venous thrombosis and/or pulmonary embolus.HIGH RISK: Target INR is 2.5-3.5 for patients with mechanical heart valves.[id number] 15:23:00 Test Item Value Reference Range Interpretation Comments PARTIAL THROMBOPLASTIN TIME 52.7 seconds 22.5-36.0 H (BEAKER) (test code = 760) [facility], [id number] 14:38:00 Test Item Value Reference Range Interpretation Comments ABO Grouping (test O Anti-A 0, Anti-B 0, A1 4+, code = 2588) B 4+, Anti D 4+ . Typing as O positive due to multiple transfusions of O positive RBC due to O ne g RBC shortage. Rh Factor (test code = NEG 2589) [facility], [id number] 14:38:00 Test Item Value Reference Range Interpretation Comments ABO Grouping (test O Anti-A 0, Anti-B 0, A1 4+, code = 2588) B 4+, Anti D 4+ . Typing as O positive due to multiple transfusions of O positive RBC due to O ne g RBC shortage. Rh Factor (test code = NEG 2589) [facility]ABORH, [id number] 14:38:00 Test Item Value Reference Range Interpretation Comments ABO Grouping (test O Anti-A 0, Anti-B 0, A1 4+, code = 2588) B 4+, Anti D 4+ . Typing as O positive due to multiple transfusions of O positive RBC due to O ne g RBC shortage. Rh Factor (test code = NEG 2589) [facility] campusType and screen, [id number] 14:32:00 Test Item Value Reference Range Interpretation Comments Ab Scrn (test code = 890-4) NEGATIVE [facility] campusType and screen, [id number] 14:32:00 Test Item Value Reference Range Interpretation Comments Ab Scrn (test code = 890-4) NEGATIVE [facility]Type and screen, [id number] 14:32:00 Test Item Value Reference Range Interpretation Comments Ab Scrn (test code = 890-4) NEGATIVE [facility]POCT-GLUCOSE [id number] 14:30:00 Test Item Value Reference Range Interpretation Comments POC-GLUCOSE METER 105 mg/dL 70-110 : TESTED A T [facility] 6720 (BEAKER) (test code = NORM [place], 1538) 45565: Sales Enablement Consultant/Techni won ID = [id number] for LACY Dyson RONAL CT, BRAIN, WITHOUT [id number] 10:14:00Unlisted Reason for Exam - Click Yes and Enter Reason Below->No [facility] : 1975 Sex: MAddendum BeginsREPORT STATUS:A The findings were discussed with SOURAV Bryan on 01/29/2021 10:13 AM. Signed: Celso Fernandes Verified Date/Time: 01/29/2021 10:14:06 Addendum EndsFINAL REPORT [...] Signed: Celso Fernandes Verified Date/Time: 01/29/2021 10:07:24 PT/[id number] 09:36:00 Test Item Value Reference Range Interpretation [...] patients with mechanical heart valves.Red blood cell [id number] 09:29:00 Test Item Value Reference Range Interpretation Comments RBC (test code = 2.37 See_Comment L [Automated 239-5) message] The system which generated this result transmit ari reference range : 4.63 - 6.08 M/ L. The reference range was not u sed to interpret th is result as normal/abnormal . CARLEY (test code = CARLEY) Sales Enablement Consultant ID - [id number] ID - [id number] Lab Interpretation Abnormal (test code = 45749-7) [facility] campusRed blood cell [id number] 09:29:00 Test Item Value Reference Range Interpretation Comments RBC (test code = 2.37 See_Comment L [Automated 691-7) message] The system which generated this result transmit ari reference range : 4.63 - 6.08 M/ L. The reference range was not u sed to interpret th is result as normal/abnormal . CARLEY (test code = CARLEY) Sales Enablement Consultant ID - [id number] ID - [id number] Lab Interpretation Abnormal (test code = 00393-5) [facility] campusRed blood cell [id number] 09:29:00 Test Item Value Reference Range Interpretation Comments RBC (test code = 2.37 See_Comment L [Automated HESIODO98) message] The system which generated this result transmit ari reference range : 4.63 - 6.08 M/ L. The reference range was not u sed to interpret th is result as normal/abnormal . CARLEY (test code = CARLEY) Sales Enablement Consultant ID - [id number] ID - [id number] Lab Interpretation Abnormal (test code = 63681-6) [facility] campusRED BLOOD CELL [id number] 09:29:00 Test Item Value Reference Range Interpretation Comments RED BLOOD CELL COUNT (BEAKER) (test 2.37 M/ L 4.63-6.08 L code = 761) Sales Enablement Consultant ID - 6000Operator ID - [id number] [id number] 08:25:00 Test Item Value Reference Range Interpretation Comments Digoxin Lvl (test code = 1.06 ng/mL 0.8-2 51130-8) CARLEY (test code = CARLEY) Sales Enablement Consultant ID - SIMA W Lab Interpretation (test Normal code = 73776-3) [facility] campusDigoxin [id number] 08:25:00 Test Item Value Reference Range Interpretation Comments Digoxin Lvl (test code = 1.06 ng/mL 0.8-2 82734-0) CARLEY (test code = CARLEY) Sales Enablement Consultant ID - SIMA W Lab Interpretation (test Normal code = 33086-6) [facility] campusDigoxin [id number] 08:25:00 Test Item Value Reference Range Interpretation Comments Digoxin Lvl (test code = 1.06 ng/mL 0.8-2 19504-8) CARLEY (test code = CARLEY) Sales Enablement Consultant ID - SIMA W Lab Interpretation (test Normal code = 89716-3) [facility] campusDIGOXIN [id number] 08:25:00 Test Item Value Reference Range Interpretation Comments DIGOXIN LEVEL (BEAKER) (test code 1.06 ng/mL 0.80-2.00 = 669) Sales Enablement Consultant ID - SIMA WPOCT-GLUCOSE [id number] 07:31:00 Test Item Value Reference Range Interpretation Comments POC-GLUCOSE METER 97 mg/dL 70-110 : TESTED A T [facility] 6720 (AKER) (test code = NORM [place], 1538) 41181: Sales Enablement Consultant/Techni won ID = [id number] for VINOD RONAL [id number] 07:26:00 Test Item Value Reference Range Interpretation Comments PARTIAL THROMBOPLASTIN TIME 35.6 seconds 22.5-36.0 (BEAKER) (test code = 760) CBC W/PLT COUNT & AUTO [id number] 07:23:00 Test Item Value Reference Range Interpretation Comments WHITE BLOOD CELL COUNT (BEAKER) 10.0 K/ L 3.5-10.5 (test code = 775) RED BLOOD CELL COUNT (BEAKER) 2.35 M/ L 4.63-6.08 L (test code [...] (BEAKER) (test code = 2801) Hepatic function [id number] 07:21:00 Test Item Value Reference Range Interpretation Comments Protein, Total (test 5.6 See_Comment L [Autom ated code = 2885-2) message] The system which generated this result transmit ari reference range : 6.0 - 8.3 gm/dL . The reference range was not u sed to interpret th is result as normal/abnormal . Albumin (test code = 2.3 g/dL 3.5-5 L 29538-9) Total Bilirubin (test 0.6 mg/dL 0.2-1.2 code = 1974-2) Bilirubin, Direct 0.5 mg/dL 0.1-0.5 (test code = 1967-7) Alkaline Phosphatase 134 U/L 40-150 (test code = 6768-6) AST (test code = 39 U/L 5-34 H 1920-8) ALT (test code = 125 U/L 6-55 H 1742-6) CARLEY (test code = CARLEY) Sales Enablement Consultant ID - KENNETH W Lab Interpretation Abnormal (test code = 81746-9) [facility] campusHepatic function [id number] 07:21:00 Test Item Value Reference Range Interpretation Comments Protein, Total (test 5.6 See_Comment L [Autom ated code = 2885-2) message] The system which generated this result transmit ari reference range : 6.0 - 8.3 gm/dL . The reference range was not u sed to interpret th is result as normal/abnormal . Albumin (test code = 2.3 g/dL 3.5-5 L 36751-5) Total Bilirubin (test 0.6 mg/dL 0.2-1.2 code = 1974-2) Bilirubin, Direct 0.5 mg/dL 0.1-0.5 (test code = 1967-) Alkaline Phosphatase 134 U/L 40-150 (test code = 6768-6) AST (test code = 39 U/L 5-34 H 1920-8) ALT (test code = 125 U/L 6-55 H 1742-6) CARLEY (test code = CARLEY) Sales Enablement Consultant ID - KENNETH W Lab Interpretation Abnormal (test code = 04391-2) [facility] campusHepatic function [id number] 07:21:00 Test Item Value Reference Range Interpretation Comments Protein, Total (test 5.6 See_Comment L [Autom ated code = 2885-2) message] The system which generated this result transmit ari reference range : 6.0 - 8.3 gm/dL . The reference range was not u sed to interpret th is result as normal/abnormal . Albumin (test code = 2.3 g/dL 3.5-5 L 47901-1) Total Bilirubin (test 0.6 mg/dL 0.2-1.2 code = 1974-2) Bilirubin, Direct 0.5 mg/dL 0.1-0.5 (test code = 1967-7) Alkaline Phosphatase 134 U/L 40-150 (test code = 6768-6) AST (test code = 39 U/L 5-34 H 1920-8) ALT (test code = 125 U/L 6-55 H 1742-6) CARLEY (test code = CARLEY) Sales Enablement Consultant ID - KENNETH W Lab Interpretation Abnormal (test code = 41211-3) [facility]BABAP[facility] METABOLIC [id number] 07:21:00 Test Item Value Reference Range Interpretation [...] S NOT APPLICABLE FOR DIALYSIS PATIEN TS. Sales Enablement Consultant ID - KENNETH [id number] 07:21:00 Test Item Value Reference Range Interpretation Comments MAGNESIUM (BEAKER) (test code = 2.0 mg/dL 1.6-2.6 627) Sales Enablement Consultant ID - KENNETH [id number] 07:21:00 Test Item Value Reference Range Interpretation Comments PHOSPHORUS (BEAKER) (test code = 3.7 mg/dL 2.3-4.7 604) Sales Enablement Consultant ID - KENNETH WHEPATIC FUNCTION [id number] 07:21:00 Test Item Value Reference Range Interpretation [...] code = 125 U/L 6-55 H 347) Sales Enablement Consultant ID - KENNETH WLACTIC ACID, [id number] 07:18:00 Test Item Value Reference Range Interpretation Comments LACTATE BLOOD 0.7 mmol/L 0.5-2.2 Specimen sligh tly ARTERIAL (2) (BEAKER) hemoly zed (test code = 2874) Sales Enablement Consultant ID - KENNETH WBLOOD GAS, [id number] 06:44:00 Test Item Value Reference Range Interpretation [...] (BEAKER) (test code = 1819) 70.0 CALCIUM, [id number] 06:42:00 Test Item Value Reference Range Interpretation Comments CALCIUM IONIZED (BEAKER) (test 1.13 mmol/L 1.12-1.27 code = 698) PH, BLOOD (BEAKER) (test code = 7.50 1810) OXYGEN SATURATION, [id number] 06:41:00 Test Item Value Reference Range Interpretation Comments O2 SATURATION (MEASURED) (BEAKER) 74.5 % (test code = 1455) RAD, CHEST, 1 VIEW, NON [id number] 04:31:00Reason for exam:- >intubatedShould this be performed at the bedside?->Yes [facility] 1975 Sex: MFINAL REPORT Chest one view. Clinical history: intubated Comparison: Chest radiograph 01/28/2021, 5:33 PM. Technique: A single frontal view of the chest was obtained. Findings:Support lines and tubes are in satisfactory positions. The patient is status post median sternotomy. 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 There are diffuse bilateral airspace opacities, mildly decreased. There are small bilateral pleural effusions. There is no pneumothorax. Signed: Buck Warren MDReport Verified Date/Time: 01/29/2021 04:31:34 POCT-GLUCOSE [id number] 00:55:00 Test Item Value Reference Range Interpretation Comments POC-GLUCOSE METER 116 mg/dL 70-110 H : TESTED A T [facility] 6720 (BEAKER) (test code = NORM [place], 1538) 03336: Sales Enablement Consultant/Techni won ID = [id number] for VINOD CHAUDHARY [id number] 18:45:00 Test Item Value Reference Range Interpretation Comments Potassium (test code = 3.9 meq/L 3.5-5.1 2823-3) CARLEY (test code = CARLEY) Sales Enablement Consultant ID - DB Lab Interpretation (test Normal code = 47899-1) [facility] 18:[facility]00 Test Item Value Reference Range Interpretation Comments Sodium (test code = 2951-2) 137 meq/L 136-145 CARLEY (test code = CARLEY) Sales Enablement Consultant ID - DB Lab Interpretation (test Normal code = 83520-4) [facility] 18:[facility]00 Test Item Value Reference Range Interpretation Comments Potassium (test code = 3.9 meq/L 3.5-5.1 2823-3) CARLEY (test code = CARLEY) Sales Enablement Consultant ID - DB Lab Interpretation (test Normal code = 49700-3) [facility] 18:45:00 Test Item Value Reference Range Interpretation Comments Sodium (test code = 2951-2) 137 meq/L 136-145 CARLEY (test code = CARLEY) Sales Enablement Consultant ID - DB Lab Interpretation (test Normal code = 85875-6) [facility] 18:45:00 Test Item Value Reference Range Interpretation Comments Potassium (test code = 3.9 meq/L 3.5-5.1 2823-3) CARLEY (test code = CARLEY) Sales Enablement Consultant ID - DB Lab Interpretation (test Normal code = 16167-8) [facility] 18:45:00 Test Item Value Reference Range Interpretation Comments Sodium (test code = 2951-2) 137 meq/L 136-145 CARLEY (test code = CARLEY) Sales Enablement Consultant ID - DB Lab Interpretation (test Normal code = 98059-0) [facility] 18:45:00 Test Item Value Reference Range Interpretation Comments MAGNESIUM (BEAKER) (test code = 1.9 mg/dL 1.6-2.6 627) Sales Enablement Consultant ID - [id number] 18:45:00 Test Item Value Reference Range Interpretation Comments PHOSPHORUS (BEAKER) (test code = 2.7 mg/dL 2.3-4.7 604) Sales Enablement Consultant ID - [id number] 18:45:00 Test Item Value Reference Range Interpretation Comments POTASSIUM (BEAKER) (test code = 3.9 meq/L 3.5-5.1 379) Sales Enablement Consultant ID - [id number] 18:45:00 Test Item Value Reference Range Interpretation Comments SODIUM (BEAKER) (test code = 381) 137 meq/L 136-145 Sales Enablement Consultant ID - DBRAD, CHEST, 1 VIEW, NON [id number] 18:36:00Reason for exam:- >Hypoxia, eval chest tubeShould this be performed at the bedside?->Yes [facility] 1975 Sex: [...] the diaphragm. IMPRESSION:No significant interval change. Signed: Luz Pierre Verified Date/Time: 01/28/2021 18:36:09 Reading Location: [address] Body Reading Room POCT-GLUCOSE [id number] 18:29:00 Test Item Value Reference Range Interpretation Comments POC-GLUCOSE METER 91 mg/dL 70-110 : TESTED A T [facility] 6720 (BEAKER) (test code = [place], 1538) [address]: Sales Enablement Consultant/Techni won ID = [id number] for RONAL BROCK BLOOD GAS, [id number] 18:20:00 Test Item Value Reference Range Interpretation [...] (BEAKER) (test code = 1819) 100.0 HEMODIALYSIS [id number] 12:55:00Kimmy Mitchell RN 01/28/2021 12:55 PMLab Results Component Value Date WBC 12.6 (H) 01/28/2021 HGB 7.5 (L) 01/28/2021 HCT 23.9 (L) 01/28/2021 MCV 93.4 (H) 01/28/2021 PLT 121 (L) 01/28/2021 Lab Results Component Value Date GLUCOSE 114 (H) 01/28/2021 CALCIUM 8.9 01/28/2021 NA 135 (L) 01/28/2021 K 4.508 CO2 27 01/28/2021 CL 103 01/28/2021 BUN 35 (H) 01/28/2021 CREATININE 2.83 (H) 01/28/2021 Lab Results Component Value Date HEPBSAG Nonreactive 01/14/2021 HD X 4 hours completed via right IJ tunneled catheter. Net UF -3.5L. Hypertensive during treatment. Scheduled metoprolol and prn labetalolgiven during treatment with minimal effect. Report given to primary RN. JOSE Talbot [facility]ilionHEMODIALYS[facility] [id number] 12:55:00Kimmy Mitchell RN 01/28/2021 12:55 PMLab Results Component Value Date WBC 12.6 (H) 01/28/2021 HGB 7.5 (L) 01/28/2021 HCT 23.9 (L) 01/28/2021 MCV 93.4 (H) 01/28/2021 PLT 121 (L) 01/28/2021 Lab Results Component Value Date GLUCOSE 114 (H) 01/28/2021 CALCIUM 8.9 01/28/2021 NA 135 (L) 01/28/2021 K 4.508 CO2 27 01/28/2021 CL 103 01/28/2021 BUN 35 (H) 01/28/2021 CREATININE 2.83 (H) 01/28/2021 Lab Results Component Value Date HEPBSAG Nonreactive 01/14/2021 HD X 4 hours completed via right IJ tunneled catheter. Net UF -3.5L. Hypertensive during treatment. Scheduled metoprolol and prn labetalolgiven during treatment with minimal effect. Report given to primary RN. JOSE Talbot [facility]ilionHEMOD[facility] [id number] 12:55:00Kimmy Mitchell RN 01/28/2021 12:55 PMLab Results Component Value Date WBC 12.6 (H) 01/28/2021 HGB 7.5 (L) 01/28/2021 HCT 23.9 (L) 01/28/2021 MCV 93.4 (H) 01/28/2021 PLT 121 (L) 01/28/2021 Lab Results Component Value Date GLUCOSE 114 (H) 01/28/2021 CALCIUM 8.9 01/28/2021 NA 135 (L) 01/28/2021 K 4.508 CO2 27 01/28/2021 CL 103 01/28/2021 BUN 35 (H) 01/28/2021 CREATININE 2.83 (H) 01/28/2021 Lab Results Component Value Date HEPBSAG Nonreactive 01/14/2021 HD X 4 hours completed via right IJ tunneled catheter. Net UF -3.5L. Hypertensive during treatment. Scheduled metoprolol and prn labetalolgiven during treatment with minimal effect. Report given to primary RN. Kimmy Mitchell RNCHI [facility]ilionPOCT-GLUCOSE [id number] 11:56:00 Test Item Value Reference Range Interpretation Comments POC-GLUCOSE METER 97 mg/dL 70-110 : TESTED A T [facility] 6720 (BEAKER) (test code = NORM Tenorio [facility] [place], 1538) [address]: Sales Enablement Consultant/Techni won ID = [id number] for RONAL BROCK PROTHROMBIN [id number] 09:33:00 Test Item Value Reference Range Interpretation Comments PROTIME (BEAKER) 19.1 seconds 11.9-14.2 H (test code = 759) INR (BEAKER) (test 1.63 See_Comment [Automat ed message] code = 370) The system Zoondy generated this result transmitted ref erence range: <=5.90. The reference range was not used to int erpret this result as normal/abnormal . RECOMMENDED COUMADIN/WARFARIN INR THERAPY RANGESSTANDARD DOSE: 2.0 - 3.0 Includes: PROPHYLAXIS for venous thrombosis, systemic embolization; TREATMENT for venous thrombosis and/or pulmonary embolus.HIGH RISK: Target INR is 2.5-3.5 for patients with mechanical heart valves.BASIC METABOLIC [id number] 09:07:00 Test Item Value Reference Range Interpretation [...] S NOT APPLICABLE FOR DIALYSIS PATIEN TS. Sales Enablement Consultant ID - VALDEZ [id number] 09:07:00 Test Item Value Reference Range Interpretation Comments MAGNESIUM (BEAKER) (test code = 2.2 mg/dL 1.6-2.6 627) Sales Enablement Consultant ID - VALDEZ [id number] 09:07:00 Test Item Value Reference Range Interpretation Comments PHOSPHORUS (BEAKER) (test code = 3.3 mg/dL 2.3-4.7 604) Sales Enablement Consultant ID - VALDEZ MPROTHROMBIN TIME/[id number] 07:41:00 Test Item Value Reference Range Interpretation Comments PROTIME (BEAKER) 18.6 seconds 11.9-14.2 H (test code = 759) INR (BEAKER) (test 1.58 See_Comment [Automat ed message] code = 370) The system Zoondy generated this result transmitted ref erence range: <=5.90. The reference range was not used to int erpret this result as normal/abnormal . RECOMMENDED COUMADIN/WARFARIN INR THERAPY RANGESSTANDARD DOSE: 2.0 - 3.0 Includes: PROPHYLAXIS for venous thrombosis, systemic embolization; TREATMENT for venous thrombosis and/or pulmonary embolus.HIGH RISK: Target INR is 2.5-3.5 for patients with mechanical heart valves.HEPATIC FUNCTION [id number] 06:56:00 Test Item Value Reference Range Interpretation [...] code = 184 U/L 6-55 H 347) Sales Enablement Consultant ID - VALDEZ [id number] 06:56:00 Test Item Value Reference Range Interpretation Comments MAGNESIUM (BEAKER) (test code = 2.2 mg/dL 1.6-2.6 627) Sales Enablement Consultant ID - VALDEZ [id number] 06:56:00 Test Item Value Reference Range Interpretation Comments PHOSPHORUS (BEAKER) (test code = 3.1 mg/dL 2.3-4.7 604) Sales Enablement Consultant ID - VALDEZ [id number] 06:56:00 Test Item Value Reference Range Interpretation Comments POTASSIUM (BEAKER) (test code = 4.5 meq/L 3.5-5.1 379) Sales Enablement Consultant ID - VALDEZ MRAD, CHEST, 1 VIEW, NON [id number] 06:36:00Reason for exam:->intubatedShould this be performed at the bedside?->Yes [facility] : 1975 Sex: MFINAL REPORT RAD, CHEST, 1 VIEW, NON DEPT INDICATION: intubated COMPARISON: Prior day's exam FINDINGS: Portable frontal view of the chest. IMPRESSION: Support Lines: Dialysis catheter tip overlies right atrium. Feeding tube descends below the diaphragm. Drainage tube overlies the left pleura and upper abdomen. Lungs [...] (BEAKER) (test code = 2801) LACTIC ACID, [id number] 06:30:00 Test Item Value Reference Range Interpretation Comments LACTATE BLOOD ARTERIAL (2) 0.9 mmol/L 0.5-2.2 (BEAKER) (test code = 2874) Sales Enablement Consultant ID - VALDEZ [id number] 06:29:00 Test Item Value Reference Range Interpretation Comments PARTIAL THROMBOPLASTIN TIME 37.9 seconds 22.5-36.0 H (BEAKER) (test code = 760) POCT-GLUCOSE [id number] 06:25:00 Test Item Value Reference Range Interpretation Comments POC-GLUCOSE METER 94 mg/dL 70-110 : TESTED A T [facility] 6720 (BEAKER) (test code = [facility], 1538) [address]: Sales Enablement Consultant/Techni won ID = [id number] for Manuelito Busby OXYGEN SATURATION, [id number] 05:45:00 Test Item Value Reference Range Interpretation Comments O2 SATURATION (MEASURED) (BEAKER) 84.7 % (test code = 1455) BLOOD GAS, [id number] 05:43:00 Test Item Value Reference Range Interpretation [...] (BEAKER) (test code = 1819) 44.0 CALCIUM, [id number] 05:42:00 Test Item Value Reference Range Interpretation Comments CALCIUM IONIZED (BEAKER) (test 1.19 mmol/L 1.12-1.27 code = 698) PH, BLOOD (BEAKER) (test code = 7.47 1810) POCT-GLUCOSE [id number] 00:02:00 Test Item Value Reference Range Interpretation Comments POC-GLUCOSE METER 97 mg/dL 70-110 : TESTED A T [facility] 6720 (BEAKER) (test code = NORM Tenorio [facility] [place], 1538) [address]: Sales Enablement Consultant/Techni won ID = [id number] for Asa virgenManuelito willis RAD, CHEST, 1 VIEW, NON [id number] 21:24:00Reason for exam:- >tachypnea/assess left side hemothoraxShould this be performed at the bedside?->[facility] : 1975 Sex: MFINAL REPORT RAD, CHEST, 1 VIEW, NON DEPT TECHNIQUE: Frontal view(s) of the chest. INDICATION: tachypnea/assess left side hemothorax. COMPARISON: 01/27/2021 at 0038 hours FINDINGS/IMPRESSION: Lines/Tubes: Left-sided chest tube, Corpak tube, and right sided tunneled dialysis catheter with tip in the right atrium. Lungs/pleura: No convincing change in bilateral parenchymal opacities. No convincing change in a left-sided pleural effusion. No pneumothorax. Heart and Mediastinum: Unchangedcardiomegaly and vascular congestion. Soft Tissues and Bones: Unchanged. Signed: Sangeetha, Delano MDReportVerified Date/Time: 01/27/2021 21:24:57 Reading Location: [address] Transitional Reading Room LACTIC ACID, ARTERIAL 2021-01-27 21:23:00 Test Item Value Reference Range Interpretation Comments LACTATE BLOOD ARTERIAL (2) 1.1 mmol/L 0.5-2.2 (BEAKER) (test code = 2874) Sales Enablement Consultant ID - [place] [id number] 21:12:00 Test Item Value Reference Range Interpretation Comments POTASSIUM (BEAKER) (test code = 4.5 meq/L 3.5-5.1 379) Sales Enablement Consultant ID - CDPCBC (Hemogram only)2021-01-27 21:05:00 Test Item Value Reference Range Interpretation Comments WBC (test code = 6690-2) 12.5 See_Comment H [A utomated message] The system Zoondy generated this result transmitted ref erence range: 3.5 - 10 .5 K/L. The refe rence range was not u sed to interpret this result as normal/abnor mal. RBC (test code = 789-8) 2.71 See_Comment L [Au tomated message] The system Zoondy generated this result transmitted ref erence range: 4.63 - 6 .08 M/L. The refe rence range was not u sed to interpret this result as normal/abnor mal. MCHC (test code = 786-4) 32.4 See_Comment L [A utomated message] The system Zoondy generated this result transmitted ref erence range: [...] = 116 See_Comment L [Aut omated message] 827-3) The system Zoondy generated this result transmitted ref erence range: 150 - 45 0 K/CU MM. The referen ce range was not u sed to interpret this result as normal/abnor mal. MPV (test code = 11.2 fL 9.4-12.4 37281-2) nRBC (test code = 413) 0 See_Comment [Aut omated message] The system Zoondy generated this result transmitted ref erence range: 0 - 0 /1 00 WBC. The refere nce range was not u sed to interpret this result as normal/abnor mal. Lab Interpretation (test Abnormal code = 76310-5) [facility] (Hemogram only)2021-01-27 21:05:00 Test Item Value Reference Range Interpretation Comments WBC (test code = 6690-2) 12.5 See_Comment H [A utomated message] The system Zoondy generated this result transmitted ref erence range: 3.5 - 10 .5 K/L. The refe rence range was not u sed to interpret this result as normal/abnor mal. RBC (test code = 789-8) 2.71 See_Comment L [Au tomated message] The system Zoondy generated this result transmitted ref erence range: 4.63 - 6 .08 M/L. The refe rence range was not u sed to interpret this result as normal/abnor mal. MCHC (test code = 786-4) 32.4 See_Comment L [A utomated message] The system Zoondy generated this result transmitted ref erence range: [...] L [Aut omated message] 777-3) The system Zoondy generated this result transmitted ref erence range: 150 - 45 0 K/CU MM. The referen ce range was not u sed to interpret this result as normal/abnor mal. MPV (test code = 11.2 fL 9.4-12.4 68811-6) nRBC (test code = 413) 0 See_Comment [Aut omated message] The system Zoondy generated this result transmitted ref erence range: 0 - 0 /1 00 WBC. The refere nce range was not u sed to interpret this result as normal/abnor mal. Lab Interpretation (test Abnormal code = 30347-6) [facility] (Hemogram only)2021-01-27 21:05:00 Test Item Value Reference Range Interpretation Comments WBC (test code = 6690-2) 12.5 See_Comment H [A utomated message] The system Zoondy generated this result transmitted ref erence range: 3.5 - 10 .5 K/L. The refe rence range was not u sed to interpret this result as normal/abnor mal. RBC (test code = 789-8) 2.71 See_Comment L [Au tomated message] The system Zoondy generated this result transmitted ref erence range: 4.63 - 6 .08 M/L. The refe rence range was not u sed to interpret this result as normal/abnor mal. MCHC (test code = 786-4) 32.4 See_Comment L [A utomated message] The system Zoondy generated this result transmitted ref erence range: [...] L [Aut omated message] 777-3) The system Zoondy generated this result transmitted ref erence range: 150 - 45 0 K/CU MM. The referen ce range was not u sed to interpret this result as normal/abnor mal. MPV (test code = 11.2 fL 9.4-12.4 17216-7) nRBC (test code = 413) 0 See_Comment [Aut omated message] The system Zoondy generated this result transmitted ref erence range: 0 - 0 /1 00 WBC. The refere nce range was not u sed to interpret this result as normal/abnor mal. Lab Interpretation (test Abnormal code = 96110-0) [facility] (HEMOGRAM ONLY)2021-01-27 21:05:00 Test Item [...] (BEAKER) (test code = 413) BLOOD GAS, [id number] 20:50:00 Test Item Value Reference Range Interpretation [...] FIO2 (BEAKER) (test code = 1819) 36.0 [id number] 18:51:00 Test Item Value Reference Range Interpretation Comments MAGNESIUM (BEAKER) (test code = 2.2 mg/dL 1.6-2.6 627) Sales Enablement Consultant ID - [id number] 18:51:00 Test Item Value Reference Range Interpretation Comments PHOSPHORUS (BEAKER) (test code = 3.2 mg/dL 2.3-4.7 604) Sales Enablement Consultant ID - [id number] 18:51:00 Test Item Value Reference Range Interpretation Comments POTASSIUM (BEAKER) (test code = 4.3 meq/L 3.5-5.1 379) Sales Enablement Consultant ID - [id number] 18:51:00 Test Item Value Reference Range Interpretation Comments SODIUM (BEAKER) (test code = 381) 135 meq/L 136-145 L Sales Enablement Consultant ID - [id number] 12:12:00 Test Item Value Reference Range Interpretation Comments MAGNESIUM (BEAKER) (test code = 2.1 mg/dL 1.6-2.6 627) Sales Enablement Consultant ID - GEMINI [id number] 12:12:00 Test Item Value Reference Range Interpretation Comments PHOSPHORUS (BEAKER) (test code = 2.9 mg/dL 2.3-4.7 604) Sales Enablement Consultant ID - GEMINI [id number] 12:12:00 Test Item Value Reference Range Interpretation Comments POTASSIUM (BEAKER) (test code = 4.4 meq/L 3.5-5.1 379) Sales Enablement Consultant ID Doretha GUTIERREZOCT-GLUCOSE [id number] 11:53:00 Test Item Value Reference Range Interpretation Comments POC-GLUCOSE METER 91 mg/dL 70-110 : TESTED A T [facility] 6720 (TAMARA) (test code = N[place], 1538) [address]: Sales Enablement Consultant/Techni won ID = [id number] for RONAL BROCK, CHEST, 1 VIEW, NON [id number] 07:51:00Reason for exam:- >intubatedShould this be performed at the bedside?->Yes [facility] : 1975 Sex: MFINAL REPORT TECHNIQUE: One view of the chest. INDICATION: Intubated. COMPARISON: Chest radiograph 01/26/2021. FINDINGS: LINES/TUBES: Interval extubation. Other lines/tubes are not significantly changed in position. LUNGS: Central pulmonary vascular congestion with bilateral airspace opacities. PLEURA: Suspected small bilateral pleural effusions. No pneumothorax. HEART AND MEDIASTINUM:Persistent prominence of the cardiac silhouette, likely due to known underlying hemopericardium. Unchanged cardiac valve prosthesis. BONES AND SOFT TISSUES: Unchanged median sternotomy wires. Soft tissues are unremarkable. IMPRESSION:Lines/tubes as above. Central pulmonary vascular congestion with bila teral airspace opacities, suspicious for pulmonary edema. Superimposed aspiration/pneumonia cannot be excluded. Otherwise, no significant change since 01/26/2021. Signed: Araseli Browning Verified Date/Time: 01/27/2021 07:51:17 Reading Location: [facility] Diagnostic Imaging Reading Room - [place] [address] 112 BASIC METABOLIC [id number] 07:12:00 Test Item Value Reference Range Interpretation [...] S NOT APPLICABLE FOR DIALYSIS PATIEN TS. Sales Enablement Consultant ID - GEMINI FPROTHROMBIN [id number] 07:09:00 Test Item Value Reference Range Interpretation Comments PROTIME (BEAKER) 17.1 seconds 11.9-14.2 H (test code = 759) INR (BEAKER) (test 1.42 See_Comment [Automat ed message] code = 370) The system Zoondy generated this result transmitted ref erence range: <=5.90. The reference range was not used to int erpret this result as normal/abnormal . RECOMMENDED COUMADIN/WARFARIN INR THERAPY RANGESSTANDARD DOSE: 2.0 - 3.0 Includes: PROPHYLAXIS for venous thrombosis, systemic embolization; TREATMENT for venous thrombosis and/or pulmonary embolus.HIGH RISK: Target INR is 2.5-3.5 for patients with mechanical heart valves.HEPATIC FUNCTION [id number] 04:21:00 Test Item Value Reference Range Interpretation [...] code = 248 U/L 6-55 H 347) Sales Enablement Consultant ID Doretha MILLS [id number] 04:21:00 Test Item Value Reference Range Interpretation Comments MAGNESIUM (BEAKER) (test code = 2.1 mg/dL 1.6-2.6 627) Sales Enablement Consultant ID - LINA [id number] 04:21:00 Test Item Value Reference Range Interpretation Comments PHOSPHORUS (BEAKER) (test code = 2.5 mg/dL 2.3-4.7 604) Sales Enablement Consultant ID Doretha MILLS [id number] 04:21:00 Test Item Value Reference Range Interpretation Comments POTASSIUM (BEAKER) (test code = 4.0 meq/L 3.5-5.1 379) Sales Enablement Consultant ID - LINA [id number] 04:14:00 Test Item Value Reference Range Interpretation Comments PARTIAL THROMBOPLASTIN TIME 35.4 seconds 22.5-36.0 (BEAKER) (test code = 760) LACTIC ACID, [id number] 04:05:00 Test Item Value Reference Range Interpretation Comments LACTATE BLOOD ARTERIAL (2) 0.9 mmol/L 0.5-2.2 (BEAKER) (test code = 2874) Sales Enablement Consultant ID Doretha MILLS LCBC W/PLT COUNT & AUTO [id number] 03:58:00 Test Item Value Reference Range Interpretation [...] (BEAKER) (test code = 2801) BLOOD GAS, [id number] 03:52:00 Test Item Value Reference Range Interpretation [...] (test code = 1819) 100.0 OXYGEN SATURATION, [id number] 03:50:00 Test Item Value Reference Range Interpretation Comments O2 SATURATION (MEASURED) (BEAKER) 64.2 % (test code = 1455) CALCIUM, [id number] 03:50:00 Test Item Value Reference Range Interpretation Comments CALCIUM IONIZED (BEAKER) (test 1.15 mmol/L 1.12-1.27 code = 698) PH, BLOOD (BEAKER) (test code = 7.43 1810) Insert Arterial [id number] 23:51:37Jes Ramos NP 01/26/2021 11:56 PMInsert Arterial Line Date/Time: 01/26/2021 11:51 PMPerformed by: Jes Ramos NPAuthorized by: Jes Ramos NP Consent: The procedure was performed in anemergent situation. Verbal consent obtained. Written consent not obtained.Risks and benefits discussed: Patient had previous A-line.Consent given by: patientPatient understanding: patient states understanding of the procedure being performedImaging studies: imaging studies available (Ultra sound guided )Required items: required blood products, implants, devices, and special equipment availablePatient identity confirmed: verbally with patient, arm band, provided demographic data and hospital-assigned identification numberTime out: Immediately prior to procedure a "time out" was called to verify the correct patient, procedure, equipment, business support specialist and site/side marked as required.Preparation: Patient was prepped and draped in the usual sterile fashion.Indications: multiple ABGs and hemodynamic monitoringLocation: left radialAnesthesia: local infiltration Anesthesia:Local Anesthetic: lidocaine 2% without epinephrine Sedation:Patient sedated: no Parish's test normal: yesNeedle gauge: 20Seldinger technique: Seldinger technique usedPost-procedure: line sutured and dressing appliedPost-procedure [facility]Insert [facility]ial [id number] 23:51:37Jes Ramos NP 01/26/2021 11:56 PMInsert Arterial Line Date/Time: 01/26/2021 11:51 PMPerformed by: Jes Ramos NPAuthorized by: Jes Ramos NP Consent: The procedure was performed in anemergent situation. Verbal consent obtained. Written consent not obtained.Risks and benefits discussed: Patient had previous A-line.Consent given by: patientPatient understanding: patient states understanding of the procedure being performedImaging studies: imaging studies available (Ultra sound guided )Required items: required blood products, implants, devices, and special equipment availablePatient identity confirmed: verbally with patient, arm band, provided demographic data and hospital-assigned identification numberTime out: Immediately prior to procedure a "time out" was called to verify the correct patient, procedure, equipment, business support specialist and site/side marked as required.Preparation: Patient was prepped and draped in the usual sterile fashion.Indications: multiple ABGs and hemodynamic monitoringLocation: left radialAnesthesia: local infiltration Anesthesia:Local Anesthetic: lidocaine 2% without epinephrine Sedation:Patient sedated: no Parish's test normal: yesNeedle gauge: 20Seldinger technique: Seldinger technique usedPost-procedure: line sutured and dressing appliedPost-procedure CMS: unchangedCHI [facility] PavilionInsert Arterial [id number] 23:51:37Jes Ramos NP 01/26/2021 11:56 PMInsert Arterial Line Date/Time: 01/26/2021 11:51 PMPerformed by: Jes Ramos NPAuthorized by: Jes Ramos NP Consent: The procedure was performed in anemergent situation. Verbal consent obtained. Written consent not obtained.Risks and benefits discussed: Patient had previous A-line.Consent given by: patientPatient understanding: patient states understanding of the procedure being performedImaging studies: imaging studies available (Ultra sound guided )Required items: required blood products, implants, devices, and special equipment availablePatient identity confirmed: verbally with patient, arm band, provided demographic data and hospital-assigned identification numberTime out: Immediately prior to procedure a "time out" was called to verify the correct patient, procedure, equipment, business support specialist and site/side marked as required.Preparation: Patient was prepped and draped in the usual sterile fashion.Indications: multiple ABGs and hemodynamic monitoringLocation: left radialAnesthesia: local infiltration Anesthesia:Local Anesthetic: lidocaine 2% without epinephrine Sedation:Patient sedated: no Parish's test normal: yesNeedle gauge: 20Seldinger technique: Seldinger technique usedPost-procedure: line sutured and dressing appliedPost-procedure [facility] [id number] 22:14:00 Test Item Value Reference Range Interpretation Comments POC-GLUCOSE METER 107 mg/dL 70-110 : TESTED A T [facility] 6720 (BEAKER) (test code = NORM [place], 1538) [address]: Sales Enablement Consultant/Techni won ID = [id number] for September BASIC METABOLIC [id number] 21:01:00 Test Item Value Reference Range Interpretation [...] S NOT APPLICABLE FOR DIALYSIS PATIEN TS. Sales Enablement Consultant ID - [id number] 21:01:00 Test Item Value Reference Range Interpretation Comments MAGNESIUM (BEAKER) (test code = 2.2 mg/dL 1.6-2.6 627) Sales Enablement Consultant ID - [id number] 21:01:00 Test Item Value Reference Range Interpretation Comments PHOSPHORUS (BEAKER) (test code = 2.0 mg/dL 2.3-4.7 L 604) Sales Enablement Consultant ID - BSCALCIUM, [id number] 20:38:00 Test Item Value Reference Range Interpretation Comments CALCIUM IONIZED (BEAKER) (test 1.24 mmol/L 1.12-1.27 code = 698) PH, BLOOD (BEAKER) (test code = 7.43 1810) [id number] 17:42:00 Test Item Value Reference Range Interpretation Comments POTASSIUM (BEAKER) (test code = 4.2 meq/L 3.5-5.1 379) Sales Enablement Consultant ID - BSPOCT-GLUCOSE [id number] 17:02:00 Test Item Value Reference Range Interpretation Comments POC-GLUCOSE METER 105 mg/dL 70-110 : TESTED A T [facility] 6720 (BEAKER) (test code = [facility], 1538) [address]: Sales Enablement Consultant/Techni won ID = [id number] for ABRAN PALOMINO [id number] 12:47:00 Test Item Value Reference Range Interpretation Comments POTASSIUM (BEAKER) (test code = 4.3 meq/L 3.5-5.1 379) Sales Enablement Consultant ID - EMERSONPOCT-GLUCOSE [id number] 12:25:00 Test Item Value Reference Range Interpretation Comments POC-GLUCOSE METER 100 mg/dL 70-110 : TESTED A T [facility] 6720 (BEAKER) (test code = [facility], 1538) 60623: Sales Enablement Consultant/Techni won ID = [id number] for ABRAN PALOMINO [id number] 08:42:00 Test Item Value Reference Range Interpretation Comments MAGNESIUM (BEAKER) (test code = 2.1 mg/dL 1.6-2.6 627) Sales Enablement Consultant ID - [id number] 08:42:00 Test Item Value Reference Range Interpretation Comments PHOSPHORUS (BEAKER) (test code = 2.7 mg/dL 2.3-4.7 604) Sales Enablement Consultant ID - [id number] 08:42:00 Test Item Value Reference Range Interpretation Comments POTASSIUM (BEAKER) (test code = 4.4 meq/L 3.5-5.1 379) Sales Enablement Consultant ID - Lucero [id number] 08:26:00 Test Item Value Reference Range Interpretation Comments Unit ABO (test code = O Pos 6584093) UNIT NUMBER (test code = [id number] 934-0) Status (test code = RETURNED FROM ISSUE 15100819) Blood Bank Product (test RED BLOOD CELLS code = 2263) PRODUCT CODE (test code = O6206G59 933-2) CROSSMATCH (test code = COMPATIBLE 2264) [facility] [id number] 08:26:00 Test Item Value Reference Range Interpretation Comments Unit ABO (test code = O Pos 5456779) UNIT NUMBER (test code = [id number] 934-0) Status (test code = RETURNED FROM ISSUE 15100819) Blood Bank Product (test RED BLOOD CELLS code = 2263) PRODUCT CODE (test code = Y3272V92 933-2) CROSSMATCH (test code = COMPATIBLE 2264) [facility] [id number] 08:26:00 Test Item Value Reference Range Interpretation Comments Unit ABO (test code = O Pos 6123503) UNIT NUMBER (test code = [id number] 934-0) Status (test code = RETURNED FROM ISSUE 15100819) Blood Bank Product (test RED BLOOD CELLS code = 2263) PRODUCT CODE (test code = D5754Z39 933-2) CROSSMATCH (test code = COMPATIBLE 2264) [facility] [id number] 08:26:00 Test Item Value Reference Range Interpretation Comments POC-GLUCOSE METER 103 mg/dL 70-110 : TESTED A T [facility] (BEAKER) (test code = [place], 1538) [address]: Sales Enablement Consultant/Techni won ID = [id number] for SYLWIA TIAN KENAREZA CALCIUM, [id number] 07:15:00 Test Item Value Reference Range Interpretation Comments CALCIUM IONIZED (BEAKER) (test 1.19 mmol/L 1.12-1.27 code = 698) PH, BLOOD (BEAKER) (test code = 7.41 1810) BLOOD GAS, [id number] 06:40:00 Test Item Value Reference Range Interpretation [...] (BEAKER) (test code = 1819) 40.0 DIGOXIN [id number] 05:24:00 Test Item Value Reference Range Interpretation Comments DIGOXIN LEVEL (BEAKER) (test code 0.76 ng/mL 0.80-2.00 L = 669) Sales Enablement Consultant ID - VALDEZ MOXYGEN SATURATION, [id number] 05:13:00 Test Item Value Reference Range Interpretation Comments O2 SATURATION (MEASURED) (BEAKER) 62.6 % (test code = 1455) BLOOD GAS, [id number] 05:11:00 Test Item Value Reference Range Interpretation [...] FIO2 (BEAKER) (test code = 1819) 40.0 [id number] 05:04:00 Test Item Value Reference Range Interpretation Comments PHOSPHORUS (BEAKER) (test code = 1.0 mg/dL 2.3-4.7 LL 604) Sales Enablement Consultant ID - VALDEZ MBASIC METABOLIC [id number] 04:53:00 Test Item Value Reference Range Interpretation [...] S NOT APPLICABLE FOR DIALYSIS PATIEN TS. Sales Enablement Consultant ID - VALDEZ [id number] 04:53:00 Test Item Value Reference Range Interpretation Comments MAGNESIUM (BEAKER) (test code = 2.3 mg/dL 1.6-2.6 627) Sales Enablement Consultant ID - VALDEZ [id number] 04:44:00 Test Item Value Reference Range Interpretation Comments PARTIAL THROMBOPLASTIN TIME 35.3 seconds 22.5-36.0 (BEAKER) (test code = 760) PROTHROMBIN [id number] 04:43:00 Test Item Value Reference Range Interpretation Comments PROTIME (BEAKER) 16.6 seconds 11.9-14.2 H (test code = 759) INR (BEAKER) (test 1.36 See_Comment [Automat ed message] code = 370) The system Zoondy generated this result transmitted ref erence range: <=5.90. The reference range was not used to int erpret this result as normal/abnormal . RECOMMENDED COUMADIN/WARFARIN INR THERAPY RANGESSTANDARD DOSE: 2.0 - 3.0 Includes: PROPHYLAXIS for venous thrombosis, systemic embolization; TREATMENT for venous thrombosis and/or pulmonary embolus.HIGH RISK: Target INR is 2.5-3.5 for patients with mechanical heart valves.CBC W/PLT COUNT & AUTO [id number] 04:40:00 Test Item Value Reference Range Interpretation [...] (BEAKER) (test code = 2801) LACTIC ACID, [id number] 04:38:00 Test Item Value Reference Range Interpretation Comments LACTATE BLOOD ARTERIAL (2) 1.5 mmol/L 0.5-2.2 (BEAKER) (test code = 2874) Sales Enablement Consultant ID - VALDEZ MBLOOD GAS, [id number] 04:34:00 Test Item Value Reference Range Interpretation [...] 1819) 40.0 RAD, CHEST, 1 VIEW, NON [id number] 02:40:00Reason for exam:- >intubatedShould this be performed at the bedside?->Yes [facility] 1975 Sex: MFINAL REPORT RAD, CHEST, 1 VIEW, NON DEPT INDICATION: intubated COMPARISON: Prior day's exam FINDINGS: Portable frontal view of the chest. IMPRESSION: Support Lines: No significant change. Lungs and pleura: Unchanged airspace and pleural opacities. No pneumothorax.Heart and mediastinum: Stable cardiomegaly. Additional findings: None. Signed: Abhay Melo Verified Date/Time: 01/26/2021 02:40:28 RAD, ABDOMEN/KUB, 1 VIEW [id number] 00:28:00Reason for exam:->Corpak position [facility] : 1975 Sex: MFINAL REPORT Abdomen one view Comparison: Abdominal radiograph 01/19/2021. Reason forexam: Corpak position Findings: Supine view of the abdomen was obtained.There is an enteric tube with tip in the gastric body. There is mild gaseous distention of small and large bowel loops, which mayrepresent an ileus.There are mediastinal and bilateral chest tubes. There are bibasilar opacities, which may represent atelectasis and/or pneumonia. There is a probable left pleural effusion. Signed: Buck Warren MDReport Verified Date/Time: 01/26/2021 00:28:31 XR abdomen / KUB 1 [id number] 00:28:00Interface, External Ris In - 01/26/2021 12:30 AM CDTFINAL REPORT Abdomen one view Comparison: Abdominal radiograph 01/19/2021. Reason for exam: Corpak position Findings: Supine viewof the abdomen was obtained.There is an enteric tube with tip in the gastric body. There is mild gaseous distention of small and large bowel loops, which may represent an ileus.There are mediastinal and bilateral chest tubes. There are bibasilar opacities, which may represent atelectasis and/or pneumonia. There is a probable left pleural effusion. Signed: Buck Warren Verified Date/Time: 01/26/2021 00:28:31 [facility] [id number] 00:28:00Interface, External Ris In - 01/26/2021 12:30 AM CDTFINAL REPORT Abdomen one view Comparison: Abdominal radiograph 01/19/2021. Reason for exam: Corpak position Findings: Supine viewof the abdomen was obtained.There is an enteric tube with tip in the gastric body. There is mild gaseous distention of small and large bowel loops, which may represent an ileus.There are mediastinal and bilateral chest tubes. There are bibasilar opacities, which may represent atelectasis and/or pneumonia. There is a probable left pleural effusion. Signed: Buck Warren Verified Date/Time: 01/26/2021 00:28:31 [facility] / KUB 1 [id number] 00:28:00Interface, External Ris In - 01/26/2021 12:30 AM CDTFINAL REPORT Abdomen one view Comparison: Abdominal radiograph 01/19/2021. Reason for exam: Corpak position Findings: Supine viewof the abdomen was obtained.There is an enteric tube with tip in the gastric body. There is mild gaseous distention of small and large bowel loops, which may represent an ileus.There are mediastinal and bilateral chest tubes. There are bibasilar opacities, which may represent atelectasis and/or pneumonia. There is a probable left pleural effusion. Signed: Buck Warren Verified Date/Time: 01/26/2021 00:28:31 [facility] 2021-01-25 22:11:00 Test Item Value Reference Range Interpretation Comments POC-GLUCOSE METER 97 mg/dL 70-110 : TESTED A T [facility] 6720 (BEAKER) (test code = [place], 1538) 56211: Sales Enablement Consultant/Techni won ID = [id number] for MESERET ETT, SEPTEMBER BASIC METABOLIC [id number] 20:58:00 Test Item Value Reference Range Interpretation [...] S NOT APPLICABLE FOR DIALYSIS PATIEN TS. Sales Enablement Consultant ID - [id number] 20:58:00 Test Item Value Reference Range Interpretation Comments MAGNESIUM (BEAKER) (test code = 1.9 mg/dL 1.6-2.6 627) Sales Enablement Consultant ID - CDPPOCT-GLUCOSE [id number] 18:18:00 Test Item Value Reference Range Interpretation Comments POC-GLUCOSE METER 103 mg/dL 70-110 : TESTED A T [facility] 6720 (BEAKER) (test code = NORM [place]ULT[place], 1538) 66678: Sales Enablement Consultant/Techni won ID = [id number] for LEVY BARBOZA [id number] 17:35:00 Test Item Value Reference Range Interpretation Comments MAGNESIUM (BEAKER) (test code = 2.1 mg/dL 1.6-2.6 627) Sales Enablement Consultant ID - [id number] 17:35:00 Test Item Value Reference Range Interpretation Comments PHOSPHORUS (BEAKER) (test code = 2.0 mg/dL 2.3-4.7 L 604) Sales Enablement Consultant ID - [id number] 17:35:00 Test Item Value Reference Range Interpretation Comments POTASSIUM (BEAKER) (test code = 3.8 meq/L 3.5-5.1 379) Sales Enablement Consultant ID - [id number] 17:35:00 Test Item Value Reference Range Interpretation Comments SODIUM (BEAKER) (test code = 381) 136 meq/L 136-145 Sales Enablement Consultant ID - CDPBLOOD GAS, [id number] 16:13:00 Test Item Value Reference Range Interpretation [...] 1819) 40.0 CBC W/PLT COUNT & AUTO [id number] 14:29:00 Test Item Value Reference Range Interpretation [...] PERCENT (BEAKER) (test code = 2801) POCT-GLUCOSE [id number] 13:31:00 Test Item Value Reference Range Interpretation Comments POC-GLUCOSE METER 92 mg/dL 70-110 : TESTED A T [facility] 6720 (BEAKER) (test code = NORM [place], 1538) [address]39[address]: Sales Enablement Consultant/Techni won ID = [id number] for LEVY MINER BASIC METABOLIC [id number] 12:31:00 Test Item Value Reference Range Interpretation [...] S NOT APPLICABLE FOR DIALYSIS PATIEN TS. Sales Enablement Consultant ID - [id number] 12:31:00 Test Item Value Reference Range Interpretation Comments MAGNESIUM (BEAKER) (test code = 2.0 mg/dL 1.6-2.6 627) Sales Enablement Consultant ID - [id number] 12:31:00 Test Item Value Reference Range Interpretation Comments PHOSPHORUS (BEAKER) (test code = 2.0 mg/dL 2.3-4.7 L 604) Sales Enablement Consultant ID - EMERSONCALCIUM, [id number] 12:07:00 Test Item Value Reference Range Interpretation Comments CALCIUM IONIZED (BEAKER) (test 1.22 mmol/L 1.12-1.27 code = 698) PH, BLOOD (BEAKER) (test code = 7.50 1810) RAD, CHEST, 1 VIEW, NON [id number] 09:54:00Reason for exam:- >intubatedShould this be performed at the bedside?->Yes [facility] 1975 Sex: MFINAL REPORT CLINICAL HISTORY: intubated TECHNIQUE: 1 view of the chest. COMPARISON:01/24/2021 IMPRESSION: The supporting lines and tubes are similar appearing. Bilateral airspace opacities and a left pleural effusion are grossly unchanged. The cardiomediastinal silhouette is magnifiedby technique with sternotomy wires. Signed: Melodie Zarate MDReport Verified Date/Time: 01/25/2021 09:54:23 Reading Location: [facility] Radiology Reading Room POCT-GLUCOSE METER 2021-01-25 08:19:00 Test Item Value Reference Range Interpretation Comments POC-GLUCOSE METER 106 mg/dL 70-110 : TESTED A T [facility] 6720 (BEAKER) (test code = [place], 1538) 64746: Sales Enablement Consultant/Techni won ID = [id number] for LEVY BARBOZA CALCIUM, [id number] 04:51:00 Test Item Value Reference Range Interpretation Comments CALCIUM IONIZED (BEAKER) (test 1.20 mmol/L 1.12-1.27 code = 698) PH, BLOOD (BEAKER) (test code = 7.44 1810) BLOOD GAS, [id number] 04:50:00 Test Item Value Reference Range Interpretation [...] (test code = 1819) 40.0 OXYGEN SATURATION, [id number] 04:48:00 Test Item Value Reference Range Interpretation Comments O2 SATURATION (MEASURED) (BEAKER) 96.3 % (test code = 1455) BASIC METABOLIC [id number] 04:39:00 Test Item Value Reference Range Interpretation [...] S NOT APPLICABLE FOR DIALYSIS PATIEN TS. Sales Enablement Consultant ID - KENNETH [id number] 04:39:00 Test Item Value Reference Range Interpretation Comments MAGNESIUM (BEAKER) (test code = 2.0 mg/dL 1.6-2.6 627) Sales Enablement Consultant ID - KENNETH [id number] 04:39:00 Test Item Value Reference Range Interpretation Comments PHOSPHORUS (BEAKER) (test code = 2.1 mg/dL 2.3-4.7 L 604) Sales Enablement Consultant ID - KENNETH WLACTIC ACID, [id number] 04:30:00 Test Item Value Reference Range Interpretation Comments LACTATE BLOOD ARTERIAL (2) 0.7 mmol/L 0.5-2.2 (BEAKER) (test code = 2874) Sales Enablement Consultant ID - LINA [id number] 04:26:00 Test Item Value Reference Range Interpretation Comments PARTIAL THROMBOPLASTIN TIME 35.4 seconds 22.5-36.0 (BEAKER) (test code = 760) PROTHROMBIN [id number] 04:25:00 Test Item Value Reference Range Interpretation Comments PROTIME (BEAKER) 16.3 seconds 11.9-14.2 H (test code = 759) INR (BEAKER) (test 1.34 See_Comment [Automat ed message] code = 370) The system Zoondy generated this result transmitted ref erence range: <=5.90. The reference range was not used to int erpret this result as normal/abnormal . RECOMMENDED COUMADIN/WARFARIN INR THERAPY RANGESSTANDARD DOSE: 2.0 - 3.0 Includes: PROPHYLAXIS for venous thrombosis, systemic embolization; TREATMENT for venous thrombosis and/or pulmonary embolus.HIGH RISK: Target INR is 2.5-3.5 for patients with mechanical heart valves.CBC W/PLT COUNT & AUTO [id number] 04:24:00 Test Item Value Reference Range Interpretation [...] PERCENT (BEAKER) (test code = 2801) POCT-GLUCOSE [id number] 00:25:00 Test Item Value Reference Range Interpretation Comments POC-GLUCOSE METER 87 mg/dL 70-110 : TESTED A T [facility] (BEAKER) (test code = [place], 1538) [address]: Sales Enablement Consultant/Techni won ID = [id number] for JAYLA DOWNEY Prepare [id number] 23:55:00 Test Item Value Reference Range Interpretation Comments Unit ABO (test code = 0166616) A Pos UNIT NUMBER (test code = [id number] 934-0) Status (test code = 0352528) TX_TIMEINCHART Blood Bank Product (test code FFP = 2263) PRODUCT CODE (test code = B6614J71 933-2) [facility] [id number] 23:55:00 Test Item Value Reference Range Interpretation Comments Unit ABO (test code = 2096515) O Neg UNIT NUMBER (test code = [id number] 934-0) Status (test code = 1241141) TX_TIMEINCHART Blood Bank Product (test code PLATELETS = 2263) PRODUCT CODE (test code = Q3406K30 933-2) [facility] Leuko-Red [id number] 23:55:00 Test Item Value Reference Range Interpretation Comments Unit ABO (test code = 9630839) O Neg UNIT NUMBER (test code = [id number] 934-0) Status (test code = 0803588) TX_TIMEINCHART Blood Bank Product (test code PLATELETS = 2263) PRODUCT CODE (test code = V8615R47 933-2) [facility] [id number] 23:55:00 Test Item Value Reference Range Interpretation Comments Unit ABO (test code = 2499716) A Pos UNIT NUMBER (test code = [id number] 934-0) Status (test code = 5681606) TX_TIMEINCHART Blood Bank Product (test code FFP = 2263) PRODUCT CODE (test code = H0845R96 933-2) [facility] [id number] 23:55:00 Test Item Value Reference Range Interpretation Comments Unit ABO (test code = 7932029) O Neg UNIT NUMBER (test code = [id number] 934-0) Status (test code = 4428859) TX_TIMEINCHART Blood Bank Product (test code PLATELETS = 2263) PRODUCT CODE (test code = N3885B68 933-2) [facility] Leuko-Red [id number] 23:55:00 Test Item Value Reference Range Interpretation Comments Unit ABO (test code = 0553834) O Neg UNIT NUMBER (test code = [id number] 934-0) Status (test code = 2429008) TX_TIMEINCHART Blood Bank Product (test code PLATELETS = 2263) PRODUCT CODE (test code = Y1278I68 933-2) [facility] [id number] 23:55:00 Test Item Value Reference Range Interpretation Comments Unit ABO (test code = 4484407) A Pos UNIT NUMBER (test code = A628373480677 934-0) Status (test code = 5837685) TX_TIMEINCHART Blood Bank Product (test code FFP = 2263) PRODUCT CODE (test code = X4162K60 933-2) [facility] [id number] 23:55:00 Test Item Value Reference Range Interpretation Comments Unit ABO (test code = 8420415) O Neg UNIT NUMBER (test code = [id number] 934-0) Status (test code = 1336673) TX_TIMEINCHART Blood Bank Product (test code PLATELETS = 2263) PRODUCT CODE (test code = A7940R70 933-2) [facility] Leuko-Red [id number] 23:55:00 Test Item Value Reference Range Interpretation Comments Unit ABO (test code = 6555529) O Neg UNIT NUMBER (test code = [id number] 934-0) Status (test code = 0185654) TX_TIMEINCHART Blood Bank Product (test code PLATELETS = 2263) PRODUCT CODE (test code = L4074D45 933-2) [facility] [id number] 22:10:00 Test Item Value Reference Range Interpretation Comments SODIUM (BEAKER) (test code = 381) 134 meq/L 136-145 L GLUCOSE-STAT [id number] 22:10:00 Test Item Value Reference Range Interpretation Comments GLUCOSE RANDOM (BEAKER) (test code 115 mg/dL 70-110 H = 652) HGB/HCT (H&H) - STAT [id number] 22:10:00 Test Item Value Reference Range Interpretation Comments HEMOGLOBIN (BEAKER) (test code = 7.6 GM/DL 13.0-16.8 L 410) HEMATOCRIT (BEAKER) (test code = 22.0 % 40.0-50.0 L 411) BLOOD GAS, [id number] 22:10:00 Test Item Value Reference Range Interpretation [...] (BEAKER) (test code = 1819) 40.0 POTASSIUM-STAT [id number] 22:07:00 Test Item Value Reference Range Interpretation Comments POTASSIUM (BEAKER) (test code = 3.8 meq/L 3.6-5.5 379) BASIC METABOLIC [id number] 18:50:00 Test Item Value Reference Range Interpretation [...] S NOT APPLICABLE FOR DIALYSIS PATIEN TS. Sales Enablement Consultant ID - [id number] 18:50:00 Test Item Value Reference Range Interpretation Comments MAGNESIUM (BEAKER) (test code = 2.2 mg/dL 1.6-2.6 627) Sales Enablement Consultant ID - [id number] 18:50:00 Test Item Value Reference Range Interpretation Comments PHOSPHORUS (BEAKER) (test code = 3.1 mg/dL 2.3-4.7 604) Sales Enablement Consultant ID - CDPPOCT-GLUCOSE [id number] 13:09:00 Test Item Value Reference Range Interpretation Comments POC-GLUCOSE METER 101 mg/dL 70-110 : TESTED A T [facility] 6720 (BEAKER) (test code = NORM Tenorio [place], 1538) 28597: Sales Enablement Consultant/Techni won ID = [id number] for KISHORE VELASQUEZ CBC W/PLT COUNT & AUTO [id number] 12:45:00 Test Item Value Reference Range Interpretation [...] H PERCENT (BEAKER) (test code = 2801) [id number] 12:38:00 Test Item Value Reference Range Interpretation Comments MAGNESIUM (BEAKER) (test code = 2.0 mg/dL 1.6-2.6 627) Sales Enablement Consultant ID - PIAYA [id number] 12:38:00 Test Item Value Reference Range Interpretation Comments PHOSPHORUS (BEAKER) (test code = 3.5 mg/dL 2.3-4.7 604) Sales Enablement Consultant ID - PIAYA [id number] 12:38:00 Test Item Value Reference Range Interpretation Comments POTASSIUM (BEAKER) (test code = 4.4 meq/L 3.5-5.1 379) Sales Enablement Consultant ID - PIAYA LHEPATIC FUNCTION [id number] 10:44:00 Test Item Value Reference Range Interpretation [...] code = 427 U/L 6-55 H 347) Sales Enablement Consultant ID - LINA GALLARDOLODIANA GAS, [id number] 10:40:00 Test Item Value Reference Range Interpretation [...] 1819) 40.0 RAD, CHEST, 1 VIEW, NON [id number] 08:49:00Reason for exam:- >intubatedShould this be performed at the bedside?->Yes [facility] 1975 Sex: MFINAL REPORT CLINICAL HISTORY: intubated TECHNIQUE: 1 view of the chest. COMPARISON:01/23/2021 IMPRESSION: The supporting lines and tubes are similar appearing. Bilateral airspace opacities are similar. A small pleural effusions unchanged. The cardiomediastinal silhouette is magnified by technique with sternotomy wires. Signed: Melodie Zarate MDReport Verified Date/Time: 01/24/2021 08:49:07 Reading Location: [facility] Radiology Reading Room BASIC METABOLIC PANEL 2021-01-24 03:54:00 Test Item Value Reference Range Interpretation [...] S NOT APPLICABLE FOR DIALYSIS PATIEN TS. Sales Enablement Consultant ID - VALDEZ [id number] 03:54:00 Test Item Value Reference Range Interpretation Comments MAGNESIUM (BEAKER) (test code = 2.2 mg/dL 1.6-2.6 627) Sales Enablement Consultant ID - VALDEZ [id number] 03:54:00 Test Item Value Reference Range Interpretation Comments PHOSPHORUS (BEAKER) (test code = 2.8 mg/dL 2.3-4.7 604) Sales Enablement Consultant ID - VALDEZ [id number] 03:49:00 Test Item Value Reference Range Interpretation Comments PARTIAL THROMBOPLASTIN TIME 36.8 seconds 22.5-36.0 H (BEAKER) (test code = 760) PROTHROMBIN [id number] 03:48:00 Test Item Value Reference Range Interpretation Comments PROTIME (BEAKER) 18.6 seconds 11.9-14.2 H (test code = 759) INR (BEAKER) (test 1.57 See_Comment [Automat ed message] code = 370) The system Zoondy generated this result transmitted ref erence range: <=5.90. The reference range was not used to int erpret this result as normal/abnormal . RECOMMENDED COUMADIN/WARFARIN INR THERAPY RANGESSTANDARD DOSE: 2.0 - 3.0 Includes: PROPHYLAXIS for venous thrombosis, systemic embolization; TREATMENT for venous thrombosis and/or pulmonary embolus.HIGH RISK: Target INR is 2.5-3.5 for patients with mechanical heart valves.CBC W/PLT COUNT & AUTO [id number] 03:40:00 Test Item Value Reference Range Interpretation [...] (BEAKER) (test code = 2801) LACTIC ACID, [id number] 03:37:00 Test Item Value Reference Range Interpretation Comments LACTATE BLOOD ARTERIAL (2) 1.4 mmol/L 0.5-2.2 (BEAKER) (test code = 2874) Sales Enablement Consultant ID - VALDEZ MBLOOD GAS, [id number] 03:26:00 Test Item Value Reference Range Interpretation [...] (BEAKER) (test code = 1819) 40.0 CALCIUM, [id number] 03:24:00 Test Item Value Reference Range Interpretation Comments CALCIUM IONIZED (BEAKER) (test 1.20 mmol/L 1.12-1.27 code = 698) PH, BLOOD (BEAKER) (test code = 7.48 1810) OXYGEN SATURATION, [id number] 03:23:00 Test Item Value Reference Range Interpretation Comments O2 SATURATION (MEASURED) (BEAKER) 64.1 % (test code = 1455) CBC W/PLT COUNT & AUTO [id number] 01:33:00 Test Item Value Reference Range Interpretation [...] (BEAKER) (test code = 2801) LACTIC ACID, [id number] 00:48:00 Test Item Value Reference Range Interpretation Comments LACTATE BLOOD ARTERIAL (2) 1.4 mmol/L 0.5-2.2 (BEAKER) (test code = 2874) Sales Enablement Consultant ID - LINA LBLOOD GAS, [id number] 00:37:00 Test Item Value Reference Range Interpretation [...] (BEAKER) (test code = 1819) 40.0 POCT-GLUCOSE [id number] 23:22:00 Test Item Value Reference Range Interpretation Comments POC-GLUCOSE METER 102 mg/dL 70-110 : TESTED A T [facility] 6720 (BEAKER) (test code = N[place], 1538) [address]: Sales Enablement Consultant/Techni won ID = [id number] for ARI MAYER [id number] 22:00:00 Test Item Value Reference Range Interpretation Comments MAGNESIUM (BEAKER) 2.1 mg/dL 1.6-2.6 Specimen slightly (test code = 627) hemolyzed Sales Enablement Consultant ID - [id number] 22:00:00 Test Item Value Reference Range Interpretation Comments PHOSPHORUS (BEAKER) 3.0 mg/dL 2.3-4.7 Specimen slightly (test code = 604) hemolyzed Sales Enablement Consultant ID - DBBASIC METABOLIC [id number] 22:00:00 Test Item Value Reference Range Interpretation [...] S NOT APPLICABLE FOR DIALYSIS PATIEN TS. Sales Enablement Consultant ID - DBCBC W/PLT COUNT & AUTO [id number] 21:49:00 Test Item Value Reference Range Interpretation [...] H PERCENT (BEAKER) (test code = 2801) [id number] 21:45:00 Test Item Value Reference Range Interpretation Comments Fibrinogen (test code = 3255-7) 253 mg/dl 225-434 Lab Interpretation (test code = Normal 98440-4) [facility] 21:45:00 Test Item Value Reference Range Interpretation Comments Fibrinogen (test code = 3255-7) 253 mg/dl 225-434 Lab Interpretation (test code = Normal 05289-5) [facility] 21:45:00 Test Item Value Reference Range Interpretation Comments Fibrinogen (test code = 3255-7) 253 mg/dl 225-434 Lab Interpretation (test code = Normal 49979-6) [facility] 21:45:00 Test Item Value Reference Range Interpretation Comments FIBRINOGEN LEVEL (BEAKER) (test 253 mg/dl 225-434 code = 658) [id number] 21:45:00 Test Item Value Reference Range Interpretation Comments PARTIAL THROMBOPLASTIN TIME 37.3 seconds 22.5-36.0 H (BEAKER) (test code = 760) PROTHROMBIN [id number] 21:44:00 Test Item Value Reference Range Interpretation Comments PROTIME (BEAKER) 19.4 seconds 11.9-14.2 H (test code = 759) INR (BEAKER) (test 1.66 See_Comment [Automat ed message] code = 370) The system Zoondy generated this result transmitted ref erence range: <=5.90. The reference range was not used to int erpret this result as normal/abnormal . RECOMMENDED COUMADIN/WARFARIN INR THERAPY RANGESSTANDARD DOSE: 2.0 - 3.0 Includes: PROPHYLAXIS for venous thrombosis, systemic embolization; TREATMENT for venous thrombosis and/or pulmonary embolus.HIGH RISK: Target INR is 2.5-3.5 for patients with mechanical heart valves.CALCIUM, [id number] 21:36:00 Test Item Value Reference Range Interpretation Comments CALCIUM IONIZED (BEAKER) (test 1.10 mmol/L 1.12-1.27 L code = 698) PH, BLOOD (BEAKER) (test code = 7.54 1810) BLOOD GAS, [id number] 21:36:00 Test Item Value Reference Range Interpretation [...] (BEAKER) (test code = 1819) 40.0 POCT-GLUCOSE [id number] 18:58:00 Test Item Value Reference Range Interpretation Comments POC-GLUCOSE METER 84 mg/dL 70-110 : TESTED A T [facility] 6720 (BEAKER) (test code = NORM [place], 1538) [address]: Sales Enablement Consultant/Techni won ID = [id number] for Mirna Tanner (contract)Tania CBC W/PLT COUNT & AUTO [id number] 18:08:00 Test Item Value Reference Range Interpretation [...] (BEAKER) (test code = 2801) OXYGEN SATURATION, [id number] 17:48:00 Test Item Value Reference Range Interpretation Comments O2 SATURATION (MEASURED) (BEAKER) 82.4 % (test code = 1455) CBC W/PLT COUNT & AUTO [id number] 17:46:00 Test Item Value Reference Range Interpretation [...] (BEAKER) (test code = 2801) Comprehensive metabolic [id number] 16:31:00 Test Item Value Reference Range Interpretation Comments Protein, Total (test 5.2 See_Comment L [Autom ated code = 2885-2) message] The system which generated this result transmit ari reference range : 6.0 - 8.3 gm/dL . The reference range was not u sed to interpret th is result as normal/abnormal . Albumin (test code = 2.6 g/dL 3.5-5 L 65040-2) Alkaline Phosphatase 89 U/L 40-150 (test code = 6768-6) Total Bilirubin (test 0.8 mg/dL 0.2-1.2 code = 1975-2) Sodium (test code = 139 meq/L 663-105 9931-2) Potassium (test code 4.1 meq/L 3.5-5.1 = 2823-3) Chloride (test code = 105 meq/L 98-107 2074-0) CO2 (test code = 26 meq/L 22-29 2027-9) BUN (test code = 20 mg/dL 7-21 3094-0) Creatinine (test code 1.88 mg/dL 0.57-1.25 H = 2160-0) Glucose (test code = 113 mg/dL 70-105 H 2345-7) Calcium (test code = 8.2 mg/dL 8.4-10.2 L 40363-0) AST (test code = 772 U/L 5-34 H 1920-8) ALT (test code = 533 U/L 6-55 H 1742-6) EGFR (test code = 48 mL/min/1.[place] [address]-3) NOT ACCURATE CREATININE CLEARANCE IN PREDICTING GLOMERULAR FILTRATION RATE . ESTIMATED GFR I S NOT APPLICABLE FOR DIALYSIS PATIEN TS. HOWE (test code = CARLEY) Sales Enablement Consultant ID - JUN Lab Interpretation Abnormal (test code = 03496-6) [facility] [id number] 16:31:00 Test Item Value Reference Range Interpretation Comments Protein, Total (test 5.2 See_Comment L [Autom ated code = 2885-2) message] The system which generated this result transmit ari reference range : 6.0 - 8.3 gm/dL . The reference range was not u sed to interpret th is result as normal/abnormal . Albumin (test code = 2.6 g/dL 3.5-5 L 03905-3) Alkaline Phosphatase 89 U/L 40-150 (test code = 6768-6) Total Bilirubin (test 0.8 mg/dL 0.2-1.2 code = 1975-2) Sodium (test code = 139 meq/L 336-581 7331-2) Potassium (test code 4.1 meq/L 3.5-5.1 = 2823-3) Chloride (test code = 105 meq/L 98-107 2075-0) CO2 (test code = 26 meq/L 22-29 8-9) BUN (test code = 20 mg/dL 7- 3094-0) Creatinine (test code 1.88 mg/dL 0.57-1.25 H = 2160-0) Glucose (test code = 113 mg/dL 70-105 H 2345-7) Calcium (test code = 8.2 mg/dL 8.4-10.2 L 17010-8) AST (test code = 772 U/L 5-34 H 1920-8) ALT (test code = 533 U/L 6-55 H 1742-6) EGFR (test code = 48 mL/min/1.[place] [address]-7) NOT ACCURATE CREATININE CLEARANCE IN PREDICTING GLOMERULAR FILTRATION RATE . ESTIMATED GFR I S NOT APPLICABLE FOR DIALYSIS PATIEN TS. CARLEY (test code = CARLEY) Sales Enablement Consultant ID - JUN Lab Interpretation Abnormal (test code = 52591-7) [facility]Com[facility] metabolic [id number] 16:31:00 Test Item Value Reference Range Interpretation Comments Protein, Total (test 5.2 See_Comment L [Autom ated code = 2885-2) message] The system which generated this result transmit ari reference range : 6.0 - 8.3 gm/dL . The reference range was not u sed to interpret th is result as normal/abnormal . Albumin (test code = 2.6 g/dL 3.5-5 L 48163-4) Alkaline Phosphatase 89 U/L 40-150 (test code = 6768-6) Total Bilirubin (test 0.8 mg/dL 0.2-1.2 code = 1975-2) Sodium (test code = 139 meq/L 691-999 0997-2) Potassium (test code 4.1 meq/L 3.5-5.1 = 2823-3) Chloride (test code = 105 meq/L 98-107 2075-0) CO2 (test code = 26 meq/L 22-29 2028-9) BUN (test code = 20 mg/dL 7-21 3094-0) Creatinine (test code 1.88 mg/dL 0.57-1.25 H = 2160-0) Glucose (test code = 113 mg/dL 70-105 H 2345-7) Calcium (test code = 8.2 mg/dL 8.4-10.2 L 66725-9) AST (test code = 772 U/L 5-34 H 1920-8) ALT (test code = 533 U/L 6-55 H 1742-6) EGFR (test code = 48 mL/min/1.[place] [address]-1) NOT ACCURATE CREATININE CLEARANCE IN PREDICTING GLOMERULAR FILTRATION RATE . ESTIMATED GFR I S NOT APPLICABLE FOR DIALYSIS PATIEN TS. CARLEY (test code = CARLEY) Sales Enablement Consultant ID - JUN Lab Interpretation Abnormal (test code = 23263-4) [facility]COMPREHENVE METABOLIC [id number] 16:31:00 Test Item Value Reference Range Interpretation [...] S NOT APPLICABLE FOR DIALYSIS PATIEN TS. Sales Enablement Consultant ID - [id number] 16:31:00 Test Item Value Reference Range Interpretation Comments MAGNESIUM (BEAKER) (test code = 2.3 mg/dL 1.6-2.6 627) Sales Enablement Consultant ID - [id number] 16:31:00 Test Item Value Reference Range Interpretation Comments PHOSPHORUS (BEAKER) (test code = 4.2 mg/dL 2.3-4.7 604) Sales Enablement Consultant ID - JANLACTIC ACID, [id number] 16:27:00 Test Item Value Reference Range Interpretation Comments LACTATE BLOOD ARTERIAL (2) 2.0 mmol/L 0.5-2.2 (BEAKER) (test code = 2874) Sales Enablement Consultant ID - JENAE CHEST, 1 VIEW, NON [id number] 16:17:00Reason for exam:->post opShould this be performed at the bedside?->Yes [facility] 1975 Sex: [...] No acute bone abnormality. Signed: [facility], [place] Verified Date/Time: 01/23/2021 16:17:46 Reading Location: [facility] C0W Consult Reading Room [id number] 16:15:00 Test Item Value Reference Range Interpretation Comments FIBRINOGEN LEVEL (TAMARA) (test 274 mg/dl 225-434 code = 658) [id number] 16:15:00 Test Item Value Reference Range Interpretation Comments PARTIAL THROMBOPLASTIN TIME 39.6 seconds 22.5-36.0 H (TAMARA) (test code = 760) PROTHROMBIN [id number] 16:14:00 Test Item Value Reference Range Interpretation Comments PROTIME (BEAKER) 19.0 seconds 11.9-14.2 H (test code = 759) INR (BEAKER) (test 1.62 See_Comment [Automat ed message] code = 370) The system Zoondy generated this result transmitted ref erence range: <=5.90. The reference range was not used to int erpret this result as normal/abnormal . RECOMMENDED COUMADIN/WARFARIN INR THERAPY RANGESSTANDARD DOSE: 2.0 - 3.0 Includes: PROPHYLAXIS for venous thrombosis, systemic embolization; TREATMENT for venous thrombosis and/or pulmonary embolus.HIGH RISK: Target INR is 2.5-3.5 for patients with mechanical heart valves.BLOOD GAS, [id number] 16:01:00 Test Item Value Reference Range Interpretation [...] (BEAKER) (test code = 1819) 60.0 POTASSIUM-STAT [id number] 16:01:00 Test Item Value Reference Range Interpretation Comments POTASSIUM (BEAKER) (test code = 3.9 meq/L 3.6-5.5 379) GLUCOSE-STAT [id number] 16:01:00 Test Item Value Reference Range Interpretation Comments GLUCOSE RANDOM (BEAKER) (test code 117 mg/dL 70-110 H = 652) HGB/HCT (H&H) - STAT [id number] 16:01:00 Test Item Value Reference Range Interpretation Comments HEMOGLOBIN (BEAKER) (test code = 7.6 GM/DL 13.0-16.8 L 410) HEMATOCRIT (BEAKER) (test code = 22.0 % 40.0-50.0 L 411) SODIUM NA-STAT [id number] 16:00:00 Test Item Value Reference Range Interpretation Comments SODIUM (BEAKER) (test code = 381) 136 meq/L 136-145 [id number] 14:05:00 Test Item Value Reference Range Interpretation Comments FIBRINOGEN LEVEL (BEAKER) (test 265 mg/dl 225-434 code = 658) [id number] 14:05:00 Test Item Value Reference Range Interpretation Comments PARTIAL THROMBOPLASTIN TIME 51.7 seconds 22.5-36.0 H (BEAKER) (test code = 760) PROTHROMBIN [id number] 14:04:00 Test Item Value Reference Range Interpretation Comments PROTIME (BEAKER) 19.9 seconds 11.9-14.2 H (test code = 759) INR (BEAKER) (test 1.72 See_Comment [Automat ed message] code = 370) The system Zoondy generated this result transmitted ref erence range: <=5.90. The reference range was not used to int erpret this result as normal/abnormal . RECOMMENDED COUMADIN/WARFARIN INR THERAPY RANGESSTANDARD DOSE: 2.0 - 3.0 Includes: PROPHYLAXIS for venous thrombosis, systemic embolization; TREATMENT for venous thrombosis and/or pulmonary embolus.HIGH RISK: Target INR is 2.5-3.5 for patients with mechanical heart valves.Platelet [id number] 14:01:00 Test Item Value Reference Range Interpretation Comments Platelets (test code 113 See_Comment L [Autom ated = 777-3) message] The system which generated this result transmit ari reference range : 150 - 450 K/CU MM. The reference range was not u sed to interpret th is result as normal/abnormal . CARLEY (test code = CARLEY) Sales Enablement Consultant ID - [id number] ID - [id number] Lab Interpretation Abnormal (test code = 74458-9) [facility]Platelet [id number] 14:01:00 Test Item Value Reference Range Interpretation Comments Platelets (test code 113 See_Comment L [Autom ated = 777-3) message] The system which generated this result transmit ari reference range : 150 - 450 K/CU MM. The reference range was not u sed to interpret th is result as normal/abnormal . CARLEY (test code = CARLEY) Sales Enablement Consultant ID - 6000Operator ID - [id number] Lab Interpretation Abnormal (test code = 05051-0) [facility]Pl[facility] [id number] 14:01:00 Test Item Value Reference Range Interpretation Comments Platelets (test code 113 See_Comment L [Autom ated = 777-3) message] The system which generated this result transmit ari reference range : 150 - 450 K/CU MM. The reference range was not u sed to interpret th is result as normal/abnormal . CARLEY (test code = CARLEY) Sales Enablement Consultant ID - 6000Operator ID - [id number] Lab Interpretation Abnormal (test code = 28105-6) [facility]PLATELET [id number] 14:01:00 Test Item Value Reference Range Interpretation Comments PLATELET COUNT (BEAKER) (test 113 K/CU MM 150-450 L code = 756) Sales Enablement Consultant ID - 6000Operator ID - [id number] NA-STAT [id number] 13:50:00 Test Item Value Reference Range Interpretation Comments SODIUM (BEAKER) (test code = 381) 136 meq/L 136-145 POTASSIUM-STAT [id number] 13:50:00 Test Item Value Reference Range Interpretation Comments POTASSIUM (BEAKER) (test code = 4.4 meq/L 3.6-5.5 379) CALCIUM, [id number] 13:50:00 Test Item Value Reference Range Interpretation Comments CALCIUM IONIZED (BEAKER) (test 1.13 mmol/L 1.12-1.27 code = 698) PH, BLOOD (BEAKER) (test code = 7.43 1810) BLOOD GAS, [id number] 13:50:00 Test Item Value Reference Range Interpretation [...] (BEAKER) (test code = 1819) 50.0 GLUCOSE-STAT [id number] 13:50:00 Test Item Value Reference Range Interpretation Comments GLUCOSE RANDOM (BEAKER) (test code 111 mg/dL 70-110 H = 652) HGB/HCT (H&H) - STAT [id number] 13:50:00 Test Item Value Reference Range Interpretation Comments HEMOGLOBIN (BEAKER) (test code = 8.8 GM/DL 13.0-16.8 L 410) HEMATOCRIT (BEAKER) (test code = 26.0 % 40.0-50.0 L 411) ANG, TUNNELED CATHETER [id number] 11:20:00Reason for Central Line/PICC?->Need for hemodialysis accessReason for exam:->[facility] : 1975 Sex: MFINAL REPORT Tunneled dialysis catheter insertion. History: Renal failure. Modality: Sonography and fluoroscopy. Sedation: none Barker Operator: Williams Garrett M.D. Channel Lip Stiffener Insoles: Vannesa Owen MD. Approach: Right internal jugular [...] prep, a large sterile sheet to cover theareas of the patient that were not prepped, and hand hygiene, mask, head covering, and sterile gown for performing radiologist and scrub technologist. The skin was anesthetized with 2% lidocaine.Ultrasound evaluation showed a patent and compressible right internal jugular vein, which was punctured under direct real- time ultrasound guidance with a micropuncture needle. An ultrasound image was saved toPACS. A 0.018 inch wire was placed through [...] terminating in the superior right atrium. The peel- away sheath was removed. The ports were flushed and aspirated easily following placement. The catheter was sutured to the skin to secure its placement. The small jugular incision site was closed using Dermabond. A resorbable purse- string suture was placed at the catheter exit site. Vital signs were monitored throughout the procedure by a nurse, and remained stable. The patient tolerated the procedure well and left the department in the same condition. Results: Spot radiograph of the chest demonstrates the new dialysis catheter to lie in the expected position with its tip overlying the superior right atrium. Impression: Successful, uncomplicated placementof a right internal jugular tunneled dialysis catheter using sonographic and fluoroscopic guidance and conscious sedation. Signed: Williams Garrett MDReport Verified Date/Time: 01/23/2021 11:20:38 Irenai gigi signed by: WILLIAMS GARRETT MD on 01/23/2021 11:20 AMIR Tunneled Catheter [id number] 11:20:00Interface, External Ris In - 01/23/2021 11:22 AM CDTFINAL REPORT Tunneled dialysis catheter insertion. History: Renal failure. Modality: Sonography and fluoroscopy. Sedation: none Barker Operator: Williams Garrett M.D. Channel Lip Stiffener Insoles: Vannesa Owen MD. Approach: Right internal jugular veinEstimated blood loss: < 5 cc. Specimen: None. [...] were flushed and aspirated easily following placement. The catheter was sutured to the skin to secure its placement. The small jugular incision site was closed using Derm abond. A resorbable purse-string suture was placed at the catheter exit site. Vital signs were monitored throughout the procedure by a nurse, and remained stable. The patient tolerated the procedure well and left the department in the same condition. Results: Spot radiograph of the chest demonstratesthe new dialysis catheter to lie in the expected position with its tip overlying the superior right atrium. Impression: Successful, uncomplicated placement of a right internal jugular tunneled dialysis catheter using sonographic and fluoroscopic guidance and conscious sedation. Signed: Williams Garrett MDReport Verified Date/Time: 01/23/2021 11:20:38 [facility] [id number] 11:20:00Interface, External Ris In - 01/23/2021 11:22 AM CDTFINAL REPORT Tunneled dialysis catheter insertion. History: Renal failure. Modality: Sonography and fluoroscopy. Sedation: none Barker Operator: Williams Garrett M.D. Channel Lip Stiffener Insoles: Vannesa Owen MD. Approach: Right internal jugular veinEstimated blood loss: < 5 cc. Specimen: None. [...] were flushed and aspirated easily following placement. The catheter was sutured to the skin to secure its placement. The small jugular incision site was closed using [place] gonzalez. A resorbable purse-string suture was placed at [...] and fluoroscopic guidance and conscious sedation. Signed: Garrett, Williams MDReport Verified Date/Time: 01/23/2021 11:20:38 [facility] [id number] 11:20:00Interface, External Ris In - 01/23/2021 11:22 AM CDTFINAL REPORT Tunneled dialysis catheter insertion. History: Renal failure. Modality: Sonography and fluoroscopy. Sedation: none Barker Operator: Williams Garrett M.D. Channel Lip Stiffener Insoles: Vannesa Owen MD. Approach: Right internal jugular veinEstimated blood loss: < 5 cc. Specimen: None. Fluoroscopy Time: 1.0 min. Dose (Ka,r): 5 mGy. Technique: Informed written consent was obtained. Discussion of risks, benefits, and alternatives were made with the patient. The patient expressed understanding and agreed to proceed. All elements maximalsterile barrier technique was utilized for this procedure, [...] were flushed and aspirated easily following placement. The catheter was sutured [...] placement of a right internal jugular tunneled dialysiscatheter using sonographic and fluoroscopic guidance and conscious sedation. Signed: Williams Garrett MDReport Verified Date/Time: 01/23/2021 11:20:38 [facility] CampusManual [id number] 10:57:00 Test Item Value Reference Range Interpretation [...] Poikilocytes (test code = 2+ moderate 966) Alta Cells (test code = 3+ many 474) Platelet Conc (test code Decreased = 3438) CARLEY (test code = CARLEY) Sales Enablement Consultant ID - [id number] ID - Sun Michaelstam comments: Slide comments: Lab Interpretation (test Abnormal code = 98431-0) [facility] [id number] 10:57:00 Test Item Value Reference Range Interpretation [...] = 3438) CARLEY (test code = CARLEY) Sales Enablement Consultant ID - 6000Operator ID - Sun BreenKavon comments: Slide comments: Lab Interpretation (test Abnormal code = 72120-7) [facility] [id number] 10:57:00 Test Item Value Reference Range Interpretation [...] = 3438) CARLEY (test code = CARLEY) Sales Enablement Consultant ID - 6000Operator ID - Sun Michaelstam comments: Slide comments: Lab Interpretation (test Abnormal code = 05884-4) [facility](CELLAVISION MANUAL DIFF)2021-01-23 10:57:00 Test [...] CONCENTRATION Decreased (CELLAVISION)(BEAKER) (test code = 3438) Sales Enablement Consultant ID - 6000Operator ID - Sun Menendez comments: Slide comments:MAGNESIUM 2021-01-23 10:10:00 Test Item Value Reference Range Interpretation Comments MAGNESIUM (BEAKER) 2.2 mg/dL 1.6-2.6 Specimen slightly (test code = 627) hemolyzed Sales Enablement Consultant ID - [id number] 10:10:00 Test Item Value Reference Range Interpretation Comments PHOSPHORUS (BEAKER) 3.5 mg/dL 2.3-4.7 Specimen slightly (test code = 604) hemolyzed Sales Enablement Consultant ID - JANPOCT-GLUCOSE [id number] 10:01:00 Test Item Value Reference Range Interpretation Comments POC-GLUCOSE METER 108 mg/dL 70-110 : TESTED A T [facility] 6720 (BEAKER) (test code = [place], 1538) [address]: Sales Enablement Consultant/Techni won ID = [id number] for Levy Vera CBC (HEMOGRAM ONLY)2021-01-23 09:50:00 Test Item Value [...] H (test code = 413) BASIC METABOLIC [id number] 04:53:00 Test Item Value Reference Range Interpretation [...] S NOT APPLICABLE FOR DIALYSIS PATIEN TS. Sales Enablement Consultant ID - [id number] 04:53:00 Test Item Value Reference Range Interpretation Comments MAGNESIUM (BEAKER) (test code = 2.2 mg/dL 1.6-2.6 627) Sales Enablement Consultant ID - [id number] 04:53:00 Test Item Value Reference Range Interpretation Comments PHOSPHORUS (BEAKER) (test code = 2.9 mg/dL 2.3-4.7 604) Sales Enablement Consultant ID - DBPROTHROMBIN TIME/[id number] 04:43:00 Test Item Value Reference Range Interpretation Comments PROTIME (BEAKER) 24.0 seconds 11.9-14.2 H (test code = 759) INR (BEAKER) (test 2.17 See_Comment [Automat ed message] code = 370) The system Zoondy generated this result transmitted ref erence range: <=5.90. The reference range was not used to int erpret this result as normal/abnormal . RECOMMENDED COUMADIN/WARFARIN INR THERAPY RANGESSTANDARD DOSE: 2.0 - 3.0 Includes: PROPHYLAXIS for venous thrombosis, systemic embolization; TREATMENT for venous thrombosis and/or pulmonary embolus.HIGH RISK: Target INR is 2.5-3.5 for patients with mechanical heart valves.[id number] 04:43:00 Test Item Value Reference Range Interpretation Comments PARTIAL THROMBOPLASTIN TIME 46.2 seconds 22.5-36.0 H (BEAKER) (test code = 760) CBC W/PLT COUNT & AUTO [id number] 04:38:00 Test Item Value Reference Range Interpretation [...] 0-0 (test code = 413) LACTIC ACID, [id number] 04:27:00 Test Item Value Reference Range Interpretation Comments LACTATE BLOOD 2.2 mmol/L 0.5-2.2 Specimen sligh tly ARTERIAL (2) (BEAKER) hemoly zed (test code = 2874) Sales Enablement Consultant ID - DBBLOOD GAS, [id number] 04:14:00 Test Item Value Reference Range Interpretation [...] (test code = 1819) 60.0 OXYGEN SATURATION, [id number] 04:14:00 Test Item Value Reference Range Interpretation Comments O2 SATURATION (MEASURED) (BEAKER) 67.7 % (test code = 1455) CALCIUM, [id number] 04:14:00 Test Item Value Reference Range Interpretation Comments CALCIUM IONIZED (BEAKER) (test 1.18 mmol/L 1.12-1.27 code = 698) PH, BLOOD (BEAKER) (test code = 7.50 1810) RAD, CHEST, 1 VIEW, NON [id number] 03:56:00Reason for exam:->chest tubes, s/p cardiac surgeryShould this be performed at the bedside?->Yes [facility] 1975 Sex: MFINAL REPORT RAD, CHEST, 1 VIEW, NON DEPT INDICATION: chest tubes, s/p cardiac surgery COMPARISON: Prior day's exam FINDINGS: Portable frontal view of the chest. IMPRESSION: Support Lines: Stable. Lungs and pleura: Unchanged airspace and pleural opacities. No pneumothorax.Heart and mediastinum: Stable contours. Stable surgical changes.Additional findings: None. Signed: Sae [place] Verified Date/Time: 01/23/2021 03:56:28 [id number] 01:12:00 Test Item Value Reference Range Interpretation Comments MAGNESIUM (BEAKER) 1.6 mg/dL 1.6-2.6 Specimen slightly (test code = 627) hemolyzed Sales Enablement Consultant ID - DBBASIC METABOLIC [id number] 01:12:00 Test Item Value Reference Range Interpretation [...] S NOT APPLICABLE FOR DIALYSIS PATIEN TS. Sales Enablement Consultant ID - DBLACTIC ACID, [id number] 01:08:00 Test Item Value Reference Range Interpretation Comments LACTATE BLOOD 2.9 mmol/L 0.5-2.2 H Specimen sligh tly ARTERIAL (2) (BEAKER) hemoly zed (test code = 2874) Sales Enablement Consultant ID - DBCALCIUM, [id number] 00:35:00 Test Item Value Reference Range Interpretation Comments CALCIUM IONIZED (BEAKER) (test 1.17 mmol/L 1.12-1.27 code = 698) PH, BLOOD (BEAKER) (test code = 7.50 1810) BLOOD GAS, [id number] 00:35:00 Test Item Value Reference Range Interpretation [...] FIO2 (BEAKER) (test code = 1819) 60.0 [id number] 21:21:00 Test Item Value Reference Range Interpretation Comments PARTIAL THROMBOPLASTIN TIME 54.6 seconds 22.5-36.0 H (BEAKER) (test code = 760) PROTHROMBIN [id number] 21:20:00 Test Item Value Reference Range Interpretation Comments PROTIME (BEAKER) 28.7 seconds 11.9-14.2 H (test code = 759) INR (BEAKER) (test 2.73 See_Comment [Automat ed message] code = 370) The system [employer] generated this result transmitted ref erence range: <=5.90. The reference range was not used to int erpret this result as normal/abnormal . RECOMMENDED COUMADIN/WARFARIN INR THERAPY RANGESSTANDARD DOSE: 2.0 - 3.0 Includes: PROPHYLAXIS for venous thrombosis, systemic embolization; TREATMENT for venous thrombosis and/or pulmonary embolus.HIGH RISK: Target INR is 2.5-3.5 for patients with mechanical heart valves.[id number] 21:20:00 Test Item Value Reference Range Interpretation Comments FIBRINOGEN LEVEL (BEAKER) (test 228 mg/dl 225-434 code = 658) [id number] 21:02:00 Test Item Value Reference Range Interpretation Comments PHOSPHORUS (BEAKER) (test code = 4.2 mg/dL 2.3-4.7 604) Sales Enablement Consultant ID - DBLACTIC ACID, [id number] 21:00:00 Test Item Value Reference Range Interpretation Comments LACTATE BLOOD ARTERIAL (2) 3.6 mmol/L 0.5-2.2 H (BEAKER) (test code = 2874) Sales Enablement Consultant ID - DBCBC (HEMOGRAM ONLY)2021-01-22 20:50:00 Test [...] H (test code = 413) BLOOD GAS, [id number] 20:37:00 Test Item Value Reference Range Interpretation [...] (test code = 1819) 60.0 OXYGEN SATURATION, [id number] 20:37:00 Test Item Value Reference Range Interpretation Comments O2 SATURATION (MEASURED) (BEAKER) 45.7 % (test code = 1455) HGB/HCT (H&H) - STAT [id number] 20:37:00 Test Item Value Reference Range Interpretation Comments HEMOGLOBIN (BEAKER) (test code = 8.7 GM/DL 13.0-16.8 L 410) HEMATOCRIT (BEAKER) (test code = 26.0 % 40.0-50.0 L 411) GLUCOSE-STAT [id number] 20:36:00 Test Item Value Reference Range Interpretation Comments GLUCOSE RANDOM (BEAKER) (test code 110 mg/dL 70-110 = 652) SODIUM NA-STAT [id number] 20:36:00 Test Item Value Reference Range Interpretation Comments SODIUM (BEAKER) (test code = 381) 136 meq/L 136-145 POTASSIUM-STAT [id number] 20:36:00 Test Item Value Reference Range Interpretation Comments POTASSIUM (BEAKER) (test code = 4.2 meq/L 3.6-5.5 379) CT, CHEST, WITH [id number] 20:16:00Unlisted Reason for Exam - Click Yes and Enter Reason Below->No [facility] 1975 Sex: [...] catheter with tip terminating in the right atriu m. An enteric tube is seen coursing inferiorly with tip terminating in the gastric antrum. Endotracheal tube terminates at the level of T3-4. There is a left common femoral vein central venous catheterwith tip terminating in the external iliac vein however difficult to evaluate on this examination. Right- sided pleural pigtail catheter. Left-sided chest tube is seen with tip terminating in the posterior superior pleural space.Lungs and Pleura: Loculated heterogeneously predominantly hyperdense largeleft pleural effusion consistent with large hemopneumothorax with near complete collapse of the leftlung. Consolidative airspace opacity in the dependent right lower lobe with associated groundglass airspace opacities. Few right-sided pulmonary nodules, the largest of which measures 9 mm associated with the major fissure. No right sided pleural effusion or pneumothorax. Central airways: Patent.Mediastinum: No adenopathy. The esophagus is not well seen. Limited evaluation for mediastinal adenopathy d ue to timing of contrast. Thyroid gland is grossly unremarkable.Heart and pericardium: The heart is globally enlarged. There is a large heterogeneous hemopericardium/hemomediastinum .Great vessels: Normal calibers. Post surgical changes of a mitral valve repair. Severe coronary artery calcifications. 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 Acute obliquely oriented fracture deformity of the sternum Acute fracture deformity of the second left lateral rib. Soft tissues: Total body anasarca. No axillary adenopathy. Likely intramuscularhematoma within the left lateral chest wall. Abdomen and Pelvis:Liver: No acute abnormality with limited evaluation due to timing of contrast.. Hepatomegaly.Gallbladder and biliary tree: Gallbladder isnormal in size. Common bile duct not well-seen on this examination..Pancreas: No acute findings.Spleen: Heterogeneity of the spleen may be related to timing of contrast however difficult to exclude splenic lesion versus multifocal areas of infarction.. Inferior deviation of the spleen due to the largeleft hemothorax.Adrenal Glands: No acute findings.Kidneys and ureters: Atrophic multicystic kidneys bilaterally, not well evaluated on this examination.. No hydronephrosis or hydroureter.Bladder and reproductive organs: Bladder is decompressed which limits evaluation. The prostate gland is unremarkable..Stomach and Duodenum: No significant findings.Small and large intestine: Normal calibers.Appendix:Not identified.Major vascular structures: Normal aortic caliber. Gas within the left iliac veins likely related to left common femoral central venous catheter. Peritoneum and retroperitoneum: Small volume intra-abdominal ascites. No definite pneumoperitoneum is identified on this examination however difficult due to anasarca and poor visualization bowel wall. No pathologically enlarged intra-abdominal lymph nodes. Skeleton: No acute bony abnormality. Additional Findings: Total body anasarca. IMPRESSI ON:Examination extremely limited due to poor timing of [...] of which measures 9 mm associated with themajor fissure possibly inflammatory or infectious in etiology however recommend follow-up CT chest in three months to ensure resolution. Global cardiomegaly. Acute obliquely oriented fracture deformityof the sternum as well as an acute fracture of the second left lateral rib. Likely intramuscular /subcutaneous hematoma within the left lateral chest wall. Hepatomegaly. Heterogeneity of the spleen maybe related to timing of contrast however difficult to exclude splenic lesion versus multifocal areasof infarction.. Atrophic multicystic kidneys bilaterally, not well evaluated on this examination.. Small volume intra-abdominal ascites. NOTIFICATION: The significant results of this study were discussed with and acknowledged by critical care team, by telephone on 01/22/2021 8:01 PM. Signed: Red [place] Verified Date/Time: 01/22/2021 20:16:28 CT, [id number] 20:16:00Unlisted Reason for Exam - Click Yes and Enter Reason Below- >YesUnlisted Reason for Exam->ruleout bleedWill this procedure require oral contrast?->No [facility] 1975 Sex: [...] catheter with tip terminating in the right atriu m. An enteric tube is seen coursing inferiorly with tip terminating in the gastric antrum. Endotracheal tube terminates at the level of T3-4. There is a left common femoral vein central venous catheterwith tip terminating in the external iliac vein however difficult to evaluate on this examination. Right- sided pleural pigtail catheter. Left-sided chest tube is seen with tip terminating in the posterior superior pleural space.Lungs and Pleura: Loculated heterogeneously predominantly hyperdense largeleft pleural effusion consistent with large hemopneumothorax with near complete collapse of the leftlung. Consolidative airspace opacity in the dependent right lower lobe with associated groundglass airspace opacities. Few right-sided pulmonary nodules, the largest of which measures 9 mm associated with the major fissure. No right sided pleural effusion or pneumothorax. Central airways: Patent.Mediastinum: No adenopathy. The esophagus is not well seen. Limited evaluation for mediastinal adenopathy d ue to timing of contrast. Thyroid gland is grossly unremarkable.Heart and pericardium: The heart is globally enlarged. There is a large heterogeneous hemopericardium/hemomediastinum .Great vessels: Normal calibers. Post surgical changes of a mitral valve repair. Severe coronary artery calcifications. 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 Acute obliquely oriented fracture deformity of the sternum Acute fracture deformity of the second left lateral rib. Soft tissues: Total body anasarca. No axillary adenopathy. Likely intramuscularhematoma within the left lateral chest wall. Abdomen and Pelvis:Liver: No acute abnormality with limited evaluation due to timing of contrast.. Hepatomegaly.Gallbladder and biliary tree: Gallbladder isnormal in size. Common bile duct not well-seen on this examination..Pancreas: No acute findings.Spleen: Heterogeneity of the spleen may be related to timing of contrast however difficult to exclude splenic lesion versus multifocal areas of infarction.. Inferior deviation of the spleen due to the largeleft hemothorax.Adrenal Glands: No acute findings.Kidneys and ureters: Atrophic multicystic kidneys bilaterally, not well evaluated on this examination.. No hydronephrosis or hydroureter.Bladder and reproductive organs: Bladder is decompressed which limits evaluation. The prostate gland is unremarkable..Stomach and Duodenum: No significant findings.Small and large intestine: Normal calibers.Appendix:Not identified.Major vascular structures: Normal aortic caliber. Gas within the left iliac veins likely related to left common femoral central venous catheter. Peritoneum and retroperitoneum: Small volume intra-abdominal ascites. No definite pneumoperitoneum is identified on this examination however difficult due to anasarca and poor visualization bowel wall. No pathologically enlarged intra-abdominal lymph nodes. Skeleton: No acute bony abnormality. Additional Findings: Total body anasarca. IMPRESSI ON:Examination extremely limited due to poor timing of [...] of which measures 9 mm associated with themajor fissure possibly inflammatory or infectious in etiology however recommend follow-up CT chest in three months to ensure resolution. Global cardiomegaly. Acute obliquely oriented fracture deformityof the sternum as well as an acute fracture of the second left lateral rib. Likely intramuscular /subcutaneous hematoma within the left lateral chest wall. Hepatomegaly. Heterogeneity of the spleen maybe related to timing of contrast however difficult to exclude splenic lesion versus multifocal areasof infarction.. Atrophic multicystic kidneys bilaterally, not well evaluated on this examination.. Small volume intra-abdominal ascites. NOTIFICATION: The significant results of this study were discussed with and acknowledged by critical care team, by telephone on 01/22/2021 8:01 PM. Signed: Red [place] [facility] Verified Date/Time: 01/22/2021 20:16:28 CT chest with IV contrast 2021-01-22 20:16:00Interface, External Ris In - 01/22/2021 8:[address], ABDOMEN \\T\\PELVIS, WITH IV CONTRAST, CT, CHEST, WITH CONTRAST [...] achievable. FINDINGS: Examination extremely limited due to poortiming of contrast bolus possibly due to poor [...] large left pleural effusion consistent with large h emopneumothorax with near complete collapse of the left lung. Consolidative airspace opacity in the dependent right lower lobe with associated groundglass airspace opacities. Few right-sided pulmonary nodules, the largest of which measures 9 mm associated with the major fissure. No right sided pleuraleffusion or pneumothorax. Central airways: Patent.Mediastinum: No adenopathy. [...] intramuscular hematoma within the left lateral chest wall.Abdomen and Pelvis:Liver: No acute abnormality with limited evaluation due to timing of contrast.. He patomegaly.Gallbladder and biliary tree: Gallbladder is normal in [...] Duodenum: No significant findings.Small and large intestine: Normal calibers.Appendix: Not identified.Major [...] body anasarca. IMPRESSION:Examination extremely limited due to poortiming of contrast bolus possibly due to poor cardiac output. Large left hemothorax, hemopericardiumand hemomediastinum.There is near complete collapse of the left lung. Consolidative airspace opacityin the dependent right lower lobe with associated [...] well evaluated on this examination.. Small volume intra- abdominal ascites. NOTIFICATION: The significant results of this study were discussed with and acknowledged by critical care team, by telephone on 01/22/2021 8:01 PM. Signed: Sae Pinon Verified Date/Time: 01/22/2021 20:16:28 [facility] [id number] 20:16:00Interface, External Ris In - 01/22/2021 8:[address], ABDOMEN \\T\\PELVIS, WITH IV CONTRAST, CT, CHEST, WITH CONTRAST [...] achievable. FINDINGS: Examination extremely limited due to poortiming of contrast bolus possibly due to poor [...] large left pleural effusion consistent with large h emopneumothorax with near complete collapse of the left lung. Consolidative airspace opacity in the dependent right lower lobe with associated groundglass airspace opacities. Few right-sided pulmonary nodules, the largest of which measures 9 mm associated with the major fissure. No right sided pleuraleffusion or pneumothorax. Central airways: Patent.Mediastinum: No adenopathy. [...] intramuscular hematoma within the left lateral chest wall.Abdomen and Pelvis:Liver: No acute abnormality with limited evaluation due to timing of contrast.. He patomegaly.Gallbladder and biliary tree: Gallbladder is normal in [...] Duodenum: No significant findings.Small and large intestine: Normal calibers.Appendix: Not identified.Major [...] body anasarca. IMPRESSION:Examination extremely limited due to poortiming of contrast bolus possibly due to poor cardiac output. Large left hemothorax, hemopericardiumand hemomediastinum.There is near complete collapse of the left lung. Consolidative airspace opacityin the dependent right lower lobe with associated [...] well evaluated on this examination.. Small volume intra- abdominal ascites. NOTIFICATION: The significant results of this study were discussed with and acknowledged by critical care team, by telephone on 01/22/2021 8:01 PM. Signed: Sae Pinon Verified Date/Time: 01/22/2021 20:16:28 [facility] [id number] 20:16:00 Interface, External Ris In - 01/22/2021 8:[address], ABDOMEN \\T\\PELVIS, WITH IV CONTRAST, CT, CHEST, WITH CONTRAST [...] achievable. FINDINGS: Examination extremely limited due to poortiming of contrast bolus possibly due to poor [...] large left pleural effusion consistent with large h emopneumothorax with near complete collapse of the left lung. Consolidative airspace opacity in the dependent right lower lobe with associated groundglass airspace opacities. Few right-sided pulmonary nodules, the largest of which measures 9 mm associated with the major fissure. No right sided pleuraleffusion or pneumothorax. Central airways: Patent.Mediastinum: No adenopathy. [...] intramuscular hematoma within the left lateral chest wall.Abdomen and Pelvis:Liver: No acute abnormality with limited evaluation due to timing of contrast.. He patomegaly.Gallbladder and biliary tree: Gallbladder is normal in [...] Duodenum: No significant findings.Small and large intestine: Normal calibers.Appendix: Not identified.Major [...] body anasarca. IMPRESSION:Examination extremely limited due to poortiming of contrast bolus possibly due to poor cardiac output. Large left hemothorax, hemopericardiumand hemomediastinum.There is near complete collapse of the left lung. Consolidative airspace opacityin the dependent right lower lobe with associated [...] well evaluated on this examination.. Small volume intra- abdominal ascites. NOTIFICATION: The significant results of this study were discussed with and acknowledged by critical care team, by telephone on 01/22/2021 8:01 PM. Signed: Sae Pinon Verified Date/Time: 01/22/2021 20:16:28 [facility] [id number] 20:16:00Interface, External Ris In - 01/22/2021 8:[address], ABDOMEN \\T\\PELVIS, WITH IV CONTRAST, CT, CHEST, WITH CONTRAST [...] achievable. FINDINGS: Examination extremely limited due to poortiming of contrast bolus possibly due to poor [...] large left pleural effusion consistent with large h emopneumothorax with near complete collapse of the left lung. Consolidative airspace opacity in the dependent right lower lobe with associated groundglass airspace opacities. Few right-sided pulmonary nodules, the largest of which measures 9 mm associated with the major fissure. No right sided pleuraleffusion or pneumothorax. Central airways: Patent.Mediastinum: No adenopathy. [...] intramuscular hematoma within the left lateral chest wall.Abdomen and Pelvis:Liver: No acute abnormality with limited evaluation due to timing of contrast.. He patomegaly.Gallbladder and biliary tree: Gallbladder is normal in [...] Duodenum: No significant findings.Small and large intestine: Normal calibers.Appendix: Not identified.Major [...] body anasarca. IMPRESSION:Examination extremely limited due to poortiming of contrast bolus possibly due to poor cardiac output. Large left hemothorax, hemopericardiumand hemomediastinum.There is near complete collapse of the left lung. Consolidative airspace opacityin the dependent right lower lobe with associated [...] well evaluated on this examination.. Small volume intra- abdominal ascites. NOTIFICATION: The significant results of this study were discussed with and acknowledged by critical care team, by telephone on 01/22/2021 8:01 PM. Signed: Sae Pinon Verified Date/Time: 01/22/2021 20:16:28 [facility] [id number] 20:16:00 Interface, External Ris In - 01/22/2021 8:[address], ABDOMEN \\T\\PELVIS, WITH IV CONTRAST, CT, CHEST, WITH CONTRAST [...] achievable. FINDINGS: Examination extremely limited due to poortiming of contrast bolus possibly due to poor [...] large left pleural effusion consistent with large h emopneumothorax with near complete collapse of the left lung. Consolidative airspace opacity in the dependent right lower lobe with associated groundglass airspace opacities. Few right-sided pulmonary nodules, the largest of which measures 9 mm associated with the major fissure. No right sided pleuraleffusion or pneumothorax. Central airways: Patent.Mediastinum: No adenopathy. [...] intramuscular hematoma within the left lateral chest wall.Abdomen and Pelvis:Liver: No acute abnormality with limited evaluation due to timing of contrast.. He patomegaly.Gallbladder and biliary tree: Gallbladder is normal in [...] Duodenum: No significant findings.Small and large intestine: Normal calibers.Appendix: Not identified.Major [...] body anasarca. IMPRESSION:Examination extremely limited due to poortiming of contrast bolus possibly due to poor cardiac output. Large left hemothorax, hemopericardiumand hemomediastinum.There is near complete collapse of the left lung. Consolidative airspace opacityin the dependent right lower lobe with associated [...] well evaluated on this examination.. Small volume intra- abdominal ascites. NOTIFICATION: The significant results of this study were discussed with and acknowledged by critical care team, by telephone on 01/22/2021 8:01 PM. Signed: Sae Pinon Verified Date/Time: 01/22/2021 20:16:28 [facility] [id number] 20:16:00Interface, External Ris In - 01/22/2021 8:[address], ABDOMEN \\T\\PELVIS, WITH IV CONTRAST, CT, CHEST, WITH CONTRAST [...] achievable. FINDINGS: Examination extremely limited due to poortiming of contrast bolus possibly due to poor [...] large left pleural effusion consistent with large h emopneumothorax with near complete collapse of the left lung. Consolidative airspace opacity in the dependent right lower lobe with associated groundglass airspace opacities. Few right-sided pulmonary nodules, the largest of which measures 9 mm associated with the major fissure. No right sided pleuraleffusion or pneumothorax. Central airways: Patent.Mediastinum: No adenopathy. [...] intramuscular hematoma within the left lateral chest wall.Abdomen and Pelvis:Liver: No acute abnormality with limited evaluation due to timing of contrast.. He patomegaly.Gallbladder and biliary tree: Gallbladder is normal in [...] Duodenum: No significant findings.Small and large intestine: Normal calibers.Appendix: Not identified.Major [...] body anasarca. IMPRESSION:Examination extremely limited due to poortiming of contrast bolus possibly due to poor cardiac output. Large left hemothorax, hemopericardiumand hemomediastinum.There is near complete collapse of the left lung. Consolidative airspace opacityin the dependent right lower lobe with associated [...] well evaluated on this examination.. Small volume intra- abdominal ascites. NOTIFICATION: The significant results of this study were discussed with and acknowledged by critical care team, by telephone on 01/22/2021 8:01 PM. Signed: Sae [facility] Verified Date/Time: 01/22/2021 20:16:28 [facility], [id number] 18:28:00 Test Item Value Reference Range Interpretation [...] 1819) 60.0 RAD, CHEST, 1 VIEW, NON [id number] 18:14:00Reason for exam:->chest tubeShould this be performed at the bedside?->Yes [facility] 1975 Sex: MFINAL REPORT Chest one view. Clinical history: chest tube Comparison: 01/22/2021 Discussion: A frontal chest is provided. Cardiomediastinal contours are unchanged. Lines and tubes are instable position. Left pleural-parenchymal opacities are unchanged. No pneumothorax. Signed: Chino Lopez Verified Date/Time: 01/22/2021 18:14:34 Reading Location: [address] Ortho Consult Reading Room -GLUCOSE [id number] 16:43:00 Test Item Value Reference Range Interpretation Comments POC-GLUCOSE METER 88 mg/dL 70-110 : TESTED A T [facility] 6720 [facility] (test code = RAYMONJOBY Tenorio [facility] [place], 1538) [address]: Sales Enablement Consultant/Techni won ID = [id number] for Font Levy allen 2D Echo W/Doppler(CW/PW/Color)2021-01-22 15:11:52Ejection FractionSLEH ECHO HEARTLAB MKCKESSON CPACSInterface, External Ris In - 01/22/2021 3:12 PM CD TTransthoracic Echocardiography Report (TTE) Demographics Patient Name CROW KAUR Date of Study 01/22/2021 [facility] SR. 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 LV chamber is small. Severe LVH. All of the LV segments are hyperkinetic . LVEF is increased (>70%) . [...] Right atrium dilated. RA catheter is visualized . Aortic Valve Mild AoV cusp thickening. Mild aortic [...] ml LA Area: 40.76 cm^2 LA Vol. Index: 85 ml/m^2 Left Ventricle LVIDd: 3.38 cm LVEDV:34.81 [...] Tricuspid Valve TR Velocity: 2.68 m/s TR Gradient:28.64 mmHgMission Bay campus2D Echo W/Doppler(CW/PW/Color)2021-01-22 15:11:52 Ejection FractionSLEH ECHO HEARTLAB MKCKESSON CPACSInterface, External Ris In - 01/22/2021 3:12 PM CDTTransthoracic Echocardiography Report (TTE) Demographics Patient Name CROW KAUR Date of Study 01/22/2021 [facility] SR. 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 LV chamber is small. Severe LVH. All of the LV segments are hyperkinetic . LVEF is increased (>70%). 2. A small posterior pericardial effusion is present . Pericardial hematoma anterior is suspected.3. A mechanical MV prosthesis is visualized with [...] mildly increased . Right Atrium Right atrium dilated.RA catheter is visualized . Aortic Valve Mild AoV cusp thickening. Mild aortic regurgitation. MitralValve A mechanical MV prosthesis is visualized with normal function by Doppler .Mean Gradient: 1.87mmHg Tricuspid Valve Mild tricuspid regurgitation. Pulmonic Valve PV is not well visualized. Aorta Aortic root size (SInus of Valsalva diameter) is normal . Pericardium A small posterior pericardial effusion is present . Pericardial hematoma anterior is suspected. IVC/SVC/PA/PV/Pleural The estimated RA pressure by IVC dynamics >20mmHg . Chambers/Structures Left Atrium LA Volume: 170.77 ml LA Area:40.76 cm^2 LA Vol. Index: 85 ml/m^2 Left Ventricle LVIDd: 3.38 cm LVEDV:34.81 [...] mmHg AV Area (continuity): 2.14 cm^2 AV VTI:12.45 cm AV DVI: 0.88 LVOT Peak Velocity: 0.94 m/s Peak Gradient: 3.63 mmHg Mean Velocity: 0.65 m/s Mean Gradient: 1.97 mmHg LVOT Diameter: 1.76 cm LVOT VTI: 10.95 cm LVOT Area: 2.43 cm^2 LVOT SV:26.63ml LVOT CO: 3.01 l/min LVOT CI: 1.49 l/min/m^2 Tricuspid Valve TR Velocity: 2.68 m/s TR Gradient: 28.64 mmHgMission Bay campus2D Echo W/Doppler(CW/PW/Color)2021-01-22 15:11:52 Ejection FractionSLEH ECHO HEARTLAB MKCKESSON CPACSInterface, External Ris In - 01/22/2021 3:12 PM CDTTransthoracic Echocardiography Report (TTE) Demographics Patient Name CROW KAUR Date of Study 01/22/2021 RYAN SR. 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 LVchamber is small. Severe LVH. All of the LV segments are hyperkinetic . LVEF is increased (>70%) . 2. A small posterior pericardial effusion is present . Pericardial hematoma anterior is suspected. 3. 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 RV chamber size is small . Global [...] SVI is reduced. Left Atrium LA size isseverely enlarged (>48 ml/m2) . Right Ventricle RV chamber size is small . Global RV systolic function is depressed . The RV wall thickness is mildly increased . Right Atrium Right atrium dilated. R A catheter is visualized . Aortic Valve Mild AoV cusp thickening. Mild aortic [...] ml LA Area: 40.76 cm^2 LA Vol. Index: 85 ml/m^2 Left Ventricle LVIDd: 3.38 cm LVEDV:34.81 [...] Peak Gradient: 3.63 mmHg Mean Velocity: 0.65 m/sMean Gradient: 1.97 mmHg LVOT Diameter: 1.76 cm LVOT VTI: 10.95 cm LVOT Area: 2.43 cm^2 LVOT SV:26.63 ml LVOT CO: 3.01 l/min LVOT CI: 1.49 l/min/m^2 Tricuspid Valve TR Velocity: 2.68 m/s TR Gradient: 28.64 mmHgCHI John George Psychiatric PavilionBLOOD GAS, [id number] 15:01:00 Test Item Value Reference Range Interpretation [...] 1819) 60.0 CBC W/PLT COUNT & AUTO [id number] 14:49:00 Test Item Value Reference Range Interpretation [...] CONCENTRATION Decreased (CELLAVISION)(BEAKER) (test code = 3438) Sales Enablement Consultant ID - [id number] ID - Dariela OverholtUser comments: Slide comments: LACTIC ACID, [id number] 14:46:00 Test Item Value Reference Range Interpretation Comments LACTATE BLOOD ARTERIAL (2) (BEAKER) > mmol/L 0.5-2.2 HH (test code = 2874) Sales Enablement Consultant ID - VALDEZ MBLOOD GAS, [id number] 14:45:00 Test Item Value Reference Range Interpretation [...] (BEAKER) (test code = 1819) 100.0 POCT-GLUCOSE [id number] 14:33:00 Test Item Value Reference Range Interpretation Comments POC-GLUCOSE METER 139 mg/dL 70-110 H : TESTED A T [facility] 6720 (BEAKER) (test code = [place], 1538) [address]: Sales Enablement Consultant/Techni won ID = [id number] for Ob i, Joyce BASIC METABOLIC [id number] 14:30:00 Test Item Value Reference Range Interpretation [...] S NOT APPLICABLE FOR DIALYSIS PATIEN TS. Sales Enablement Consultant ID - VALDEZ [id number] 14:30:00 Test Item Value Reference Range Interpretation Comments MAGNESIUM (BEAKER) (test code = 2.0 mg/dL 1.6-2.6 627) Sales Enablement Consultant ID - VALDEZ [id number] 14:30:00 Test Item Value Reference Range Interpretation Comments PHOSPHORUS (BEAKER) (test code = 5.0 mg/dL 2.3-4.7 H 604) Sales Enablement Consultant ID - VALDEZ MSODIUM NA-STAT [id number] 14:23:00 Test Item Value Reference Range Interpretation Comments SODIUM (BEAKER) (test code = 381) 138 meq/L 136-145 POTASSIUM-STAT [id number] 14:23:00 Test Item Value Reference Range Interpretation Comments POTASSIUM (BEAKER) (test code = 3.8 meq/L 3.6-5.5 379) CALCIUM, [id number] 14:23:00 Test Item Value Reference Range Interpretation Comments CALCIUM IONIZED (BEAKER) (test 1.18 mmol/L 1.12-1.27 code = 698) PH, BLOOD (BEAKER) (test code = 7.36 1810) GLUCOSE-STAT [id number] 14:23:00 Test Item Value Reference Range Interpretation Comments GLUCOSE RANDOM (BEAKER) (test code = 58 mg/dL 70-110 L 652) HGB/HCT (H&H) - STAT [id number] 14:23:00 Test Item Value Reference Range Interpretation Comments HEMOGLOBIN (BEAKER) (test code = 7.0 GM/DL 13.0-16.8 L 410) HEMATOCRIT (BEAKER) (test code = 21.0 % 40.0-50.0 L 411) OXYGEN SATURATION, [id number] 14:22:00 Test Item Value Reference Range Interpretation Comments O2 SATURATION (MEASURED) (BEAKER) 24.2 % (test code = 1455) [id number] 14:19:00 Test Item Value Reference Range Interpretation Comments PARTIAL THROMBOPLASTIN TIME 59.4 seconds 22.5-36.0 H (BEAKER) (test code = 760) PROTHROMBIN [id number] 14:18:00 Test Item Value Reference Range Interpretation Comments PROTIME (BEAKER) 28.1 seconds 11.9-14.2 H (test code = 759) INR (BEAKER) (test 2.66 See_Comment [Automat ed message] code = 370) The system Zoondy generated this result transmitted ref erence range: <=5.90. The reference range was not used to int erpret this result as normal/abnormal . RECOMMENDED COUMADIN/WARFARIN INR THERAPY RANGESSTANDARD DOSE: 2.0 - 3.0 Includes: PROPHYLAXIS for venous thrombosis, systemic embolization; TREATMENT for venous thrombosis and/or pulmonary embolus.HIGH RISK: Target INR is 2.5-3.5 for patients with mechanical heart valves.[id number] 14:18:00 Test Item Value Reference Range Interpretation Comments FIBRINOGEN LEVEL (BEAKER) (test 237 mg/dl 225-434 code = 658) POCT-GLUCOSE [id number] 14:08:00 Test Item Value Reference Range Interpretation Comments POC-GLUCOSE METER 57 mg/dL 70-110 L : TESTED A T [facility] 6720 (BEAKER) (test code = RAYMONJOBY [place], 1538) [address]: Sales Enablement Consultant/Techni won ID = [id number] for Atgeovannyo od (V)KoltonAnurag POCT-GLUCOSE [id number] 13:35:00 Test Item Value Reference Range Interpretation Comments POC-GLUCOSE METER 66 mg/dL 70-110 L : TESTED A T [facility] 6720 (BEAKER) (test code = [facility], 153) [address]: Sales Enablement Consultant/Techni won ID = [id number] for Atwo od (V), Anurag BLOOD GAS, [id number] 12:16:00 Test Item Value Reference Range Interpretation [...] (test code = 1819) 60.0 LACTIC ACID, [id number] 11:59:00 Test Item Value Reference Range Interpretation Comments LACTATE BLOOD ARTERIAL (2) (BEAKER) > mmol/L 0.5-2.2 HH (test code = 2874) Sales Enablement Consultant ID - VALDEZ MPOCT-GLUCOSE [id number] 11:57:00 Test Item Value Reference Range Interpretation Comments POC-GLUCOSE METER 84 mg/dL 70-110 : TESTED A T [facility] 6720 (BEAKER) (test code = [facility], 1538) [address]: Sales Enablement Consultant/Techni won ID = [id number] for VINOD RONAL POCT-GLUCOSE [id number] 11:31:00 Test Item Value Reference Range Interpretation Comments POC-GLUCOSE METER 222 mg/dL 70-110 H : TESTED A T [facility] 6720 (BEAKER) (test code = [facility], 1538) [address]: Sales Enablement Consultant/Techni won ID = [id number] for At wood (V), Anurag POCT-GLUCOSE [id number] 11:29:00 Test Item Value Reference Range Interpretation Comments POC-GLUCOSE METER < mg/dL 70-110 LL : TESTED A T [facility] 6720 (BEAKER) (test code = [facility] [place], 1538) [address]: Sales Enablement Consultant/Techni won ID = [id number] for RONAL BROCK POCT-GLUCOSE [id number] 11:17:00 Test Item Value Reference Range Interpretation Comments POC-GLUCOSE METER 290 mg/dL 70-110 H : TESTED A T [facility] 6720 (DEISIAKER) (test code = [facility] Tam [facility] [place], 1538) [address]: Sales Enablement Consultant/Techni won ID = [id number] for Mica Wynn POCT-GLUCOSE [id number] 11:14:00 Test Item Value Reference Range Interpretation Comments POC-GLUCOSE METER 45 mg/dL 70-110 L : TESTED A T [facility] 6720 (DEISIAKER) (test code = [facility] Tam [facility] [place], 1538) [address]: Sales Enablement Consultant/Techni won ID = [id number] for Mica Souza ECG 12 [id number] 10:49:43Interface, External Ris In - 01/22/2021 10:49 AM CDTVentricular Rate 117 BPMAtrial Rate 141 BPMQRS Duration 104 msQ-T Interval 368 msQTC Calculation(Bazett) 513 msR [place] -10 degreesT [place] 130 degreesAtrial fibrillation with rapid ventricular responseST elevation consider inferior injury or acute infarctAbnormal ECGWhen compared with ECG of 16-JAN-2021 09:23,ST less depressed in Lateral leadsConfirmedevelyn RIBERA MD, DELMAR ([id number]) on 01/22/2021 10:49:36 [facility] [id number] 10:49:43 Interface, External Ris In - 01/22/2021 10:49 AM CDTVentricular Rate 117 BPMAtrial Rate 141 BPMQRS Duration 104 msQ-T Interval 368 msQTC Calculation(Bazett) 513 msR [place] -10 degreesT [place] 130 degreesAtrial fibrillation with rapid ventricular responseST elevation consider inferior injury or acute infarctAbnormal ECGWhen compared with ECG of 16-JAN-2021 09:23,ST less depressed in Lateral leadsConfirmedevelyn RIBERA MD, DELMAR ([id number]) on 01/22/2021 10:49:36 [facility] [id number] 10:49:43 Interface, External Ris In - 01/22/2021 10:49 AM CDTVentricular Rate 117 BPMAtrial Rate 141 BPMQRS Duration 104 msQ-T Interval 368 msQTC Calculation(Bazett) 513 msR [place] -10 degreesT [place] 130 degreesAtrial fibrillation with rapid ventricular responseST elevation consider inferior injury or acute infarctAbnormal ECGWhen compared with ECG of 16-JAN-2021 09:23,ST less depressed in Lateral leadsConfirmedevelyn RIBERA MD, RUPA ([id number]) on 01/22/2021 10:49:36 [facility] CampusGLUCOSE-STAT [id number] 10:46:00 Test Item Value Reference Range Interpretation Comments GLUCOSE RANDOM (BEAKER) (test code = 14 mg/dL 70-110 LL 652) SODIUM NA-STAT [id number] 10:43:00 Test Item Value Reference Range Interpretation Comments SODIUM (BEAKER) (test code = 381) 139 meq/L 136-145 POTASSIUM-STAT [id number] 10:43:00 Test Item Value Reference Range Interpretation Comments POTASSIUM (BEAKER) (test code = 4.4 meq/L 3.6-5.5 379) OXYGEN SATURATION, [id number] 10:43:00 Test Item Value Reference Range Interpretation Comments O2 SATURATION (MEASURED) (BEAKER) 39.1 % (test code = 1455) HGB/HCT (H&H) - STAT [id number] 10:43:00 Test Item Value Reference Range Interpretation Comments HEMOGLOBIN (BEAKER) (test code = 7.4 GM/DL 13.0-16.8 L 410) HEMATOCRIT (BEAKER) (test code = 22.0 % 40.0-50.0 L 411) [id number] 09:58:00 Test Item Value Reference Range Interpretation Comments PARTIAL THROMBOPLASTIN TIME 100.2 seconds 22.5-36.0 H (BEAKER) (test code = 760) RAD, CHEST, 1 VIEW, NON [id number] 09:56:00Reason for exam:->left chest tube placementShould this be performed at the bedside?->Yes [facility] : 1975 Sex: MFINAL REPORT Chest, one view. HISTORY: left chest tube placement COMPARISON: Radiograph from yesterday IMPRESSION: Unchanged positioning of the right chest pigtail pleural catheter, endotracheal tube, partially visualized feeding tube, and the right IJ tunneled hemodialysis catheter. Interval placement of a left chest tube. Left lung aeration has slightly improved. However, there is still a large residual pleural effusion. The cardiac silhouette is obscured but similar to the prior examinations. No acute bone abnormality. Signed: Jerzy Ferrell Verified Date/Time: 01/22/2021 09:56:49 Reading Location: [facility] C013Y CT Body Reading Room LACTIC ACID, [id number] 09:38:00 Test Item Value Reference Range Interpretation Comments LACTATE BLOOD ARTERIAL (2) 11.8 mmol/L 0.5-2.2 HH (BEAKER) (test code = 2874) Sales Enablement Consultant ID - VALDEZ [id number] 08:42:00 Test Item Value Reference Range Interpretation Comments PARTIAL THROMBOPLASTIN TIME > seconds 22.5-36.0 HH (BEAKER) (test code = 760) BLOOD GAS, [id number] 08:41:00 Test Item Value Reference Range Interpretation [...] = 1819) 100.0 HGB/HCT (H&H) - STAT [id number] 08:31:00 Test Item Value Reference Range Interpretation Comments HEMOGLOBIN (BEAKER) (test code = 6.0 GM/DL 13.0-16.8 LL 410) HEMATOCRIT (BEAKER) (test code = 18.0 % 40.0-50.0 L 411) GLUCOSE-STAT [id number] 08:21:00 Test Item Value Reference Range Interpretation Comments GLUCOSE RANDOM (BEAKER) (test code = 75 mg/dL 70-110 652) SODIUM NA-STAT [id number] 08:21:00 Test Item Value Reference Range Interpretation Comments SODIUM (BEAKER) (test code = 381) 136 meq/L 136-145 POTASSIUM-STAT [id number] 08:21:00 Test Item Value Reference Range Interpretation Comments POTASSIUM (BEAKER) (test code = 4.0 meq/L 3.6-5.5 379) OXYGEN SATURATION, [id number] 08:21:00 Test Item Value Reference Range Interpretation Comments O2 SATURATION (MEASURED) (BEAKER) 38.7 % (test code = 1455) RAD, CHEST, 1 VIEW, NON [id number] 07:21:00Reason for exam:->s/p code, intubationShould this be performed at the bedside?->Yes [facility] : 1975 Sex: MFINAL REPORT RAD, CHEST, 1 VIEW, NON DEPT INDICATION: s/p code, intubation COMPARISON: Prior day's exam FINDINGS: Portable frontal view of the chest. IMPRESSION: Support Lines: Right pleural catheter. This catheter tip overlies the atriocaval junction. Feeding tube descends below the diaphragm. ET tube tip is 2 cm superior to the nitin Lungs and pleura: Unchanged opacification of theleft hemithorax. No pneumothorax.Heart and mediastinum: Stable contours.Additional findings: None. Signed: Re Cantu MDReport Verified Date/Time: 01/22/2021 07:21:40 Reading Location: [address] Neuro Reading Room HEMOGLOBIN AND [id number] 07:19:00 Test Item Value Reference Range Interpretation Comments HEMOGLOBIN (BEAKER) (test code = 5.4 GM/DL 13.7-17.5 LL 410) HEMATOCRIT (BEAKER) (test code = 18.5 % 40.1-51.0 L 411) Sales Enablement Consultant ID - [id number] ID - [id number] ID - [id number]-type Natriuretic Factor (BNP)2021-01-22 07:17:00 Test Item Value Reference Range Interpretation Comments BNP (test code = 64991-8) 2620 pg/mL 0-100 H CARLEY (test code = CARLEY) Sales Enablement Consultant ID - VALDEZ M Lab Interpretation (test Abnormal code = 64327-8) [facility]2021-01-22 07:17:00 Test Item Value Reference Range Interpretation Comments BNP (test code = 16470-2) 2620 pg/mL 0-100 H CARLEY (test code = CARLEY) Sales Enablement Consultant ID - VALDEZ M Lab Interpretation (test Abnormal code = 40200-1) [facility] (BNP)2021-01-22 07:17:00 Test Item Value Reference Range Interpretation Comments BNP (test code = 01998-5) 2620 pg/mL 0-100 H CARLEY (test code = CARLEY) Sales Enablement Consultant ID Doretha Rae Lab Interpretation (test Abnormal code = 40191-8) [facility] NATRIURETIC FACTOR (BNP)2021-01-22 07:17:00 Test Item Value Reference Range Interpretation Comments B-TYPE NATRIURETIC PEPTIDE 2620 pg/mL 0-100 H (BEAKER) (test code = 700) Sales Enablement Consultant ID - VALDEZ [id number] 07:16:00 Test Item Value Reference Range Interpretation Comments PARTIAL THROMBOPLASTIN TIME > seconds 22.5-36.0 HH (BEAKER) (test code = 760) BASIC METABOLIC [id number] 07:11:00 Test Item Value Reference Range Interpretation [...] S NOT APPLICABLE FOR DIALYSIS PATIEN TS. Sales Enablement Consultant ID - VALDEZ [id number] 07:10:00 Test Item Value Reference Range Interpretation Comments MAGNESIUM (BEAKER) (test code = 2.1 mg/dL 1.6-2.6 627) Sales Enablement Consultant ID - VALDEZ [id number] 07:10:00 Test Item Value Reference Range Interpretation Comments PHOSPHORUS (BEAKER) (test code = 7.0 mg/dL 2.3-4.7 H 604) Sales Enablement Consultant ID - VALDEZ MHEPATIC FUNCTION [id number] 07:10:00 Test Item Value Reference Range Interpretation [...] code = 261 U/L 6-55 H 347) Sales Enablement Consultant ID - VALDEZ MLACTIC ACID, [id number] 07:09:00 Test Item Value Reference Range Interpretation Comments LACTATE BLOOD ARTERIAL (2) 12.6 mmol/L 0.5-2.2 HH (BEAKER) (test code = 2874) Sales Enablement Consultant ID - VALDEZ MPROTHROMBIN [id number] 07:02:00 Test Item Value Reference Range Interpretation Comments PROTIME (BEAKER) 22.6 seconds 11.9-14.2 H (test code = 759) INR (BEAKER) (test 2.01 See_Comment [Automat ed message] code = 370) The system Zoondy generated this result transmitted ref erence range: <=5.90. The reference range was not used to int erpret this result as normal/abnormal . RECOMMENDED COUMADIN/WARFARIN INR THERAPY RANGESSTANDARD DOSE: 2.0 - 3.0 Includes: PROPHYLAXIS for venous thrombosis, systemic embolization; TREATMENT for venous thrombosis and/or pulmonary embolus.HIGH RISK: Target INR is 2.5-3.5 for patients with mechanical heart valves.[id number] 07:02:00 Test Item Value Reference Range Interpretation Comments FIBRINOGEN LEVEL (BEAKER) (test 306 mg/dl 225-434 code = 658) CALCIUM, [id number] 06:48:00 Test Item Value Reference Range Interpretation Comments CALCIUM IONIZED (BEAKER) (test 1.34 mmol/L 1.12-1.27 H code = 698) PH, BLOOD (BEAKER) (test code = 7.30 1810) BLOOD GAS, [id number] 06:47:00 Test Item Value Reference Range Interpretation [...] (test code = 1819) 100.0 OXYGEN SATURATION, [id number] 06:47:00 Test Item Value Reference Range Interpretation Comments O2 SATURATION (MEASURED) (BEAKER) 48.0 % (test code = 1455) CBC W/PLT COUNT & AUTO [id number] 03:53:00 Test Item Value Reference Range Interpretation [...] PERCENT (BEAKER) (test code = 2801) PROTHROMBIN [id number] 03:47:00 Test Item Value Reference Range Interpretation Comments PROTIME (BEAKER) 16.4 seconds 11.9-14.2 H (test code = 759) INR (BEAKER) (test 1.34 See_Comment [Automat ed message] code = 370) The system Zoondy generated this result transmitted ref erence range: <=5.90. The reference range was not used to int erpret this result as normal/abnormal . RECOMMENDED COUMADIN/WARFARIN INR THERAPY RANGESSTANDARD DOSE: 2.0 - 3.0 Includes: PROPHYLAXIS for venous thrombosis, systemic embolization; TREATMENT for venous thrombosis and/or pulmonary embolus.HIGH RISK: Target INR is 2.5-3.5 for patients with mechanical heart valves.LACTIC ACID, [id number] 03:35:00 Test Item Value Reference Range Interpretation Comments LACTATE BLOOD ARTERIAL (2) 8.3 mmol/L 0.5-2.2 HH (BEAKER) (test code = 2874) Sales Enablement Consultant ID - VALDEZ [id number] 03:06:00 Test Item Value Reference Range Interpretation Comments MAGNESIUM (BEAKER) 2.2 mg/dL 1.6-2.6 Specimen slightly (test code = 627) hemolyzed Sales Enablement Consultant ID - VALDEZ [id number] 03:06:00 Test Item Value Reference Range Interpretation Comments PHOSPHORUS (BEAKER) 4.7 mg/dL 2.3-4.7 Specimen slightly (test code = 604) hemolyzed Sales Enablement Consultant ID - VALDEZ MBASIC METABOLIC [id number] 03:06:00 Test Item Value Reference Range Interpretation [...] S NOT APPLICABLE FOR DIALYSIS PATIEN TS. Sales Enablement Consultant ID - VALDEZ MCALCIUM, [id number] 02:59:00 Test Item Value Reference Range Interpretation Comments CALCIUM IONIZED (BEAKER) (test 1.21 mmol/L 1.12-1.27 code = 698) PH, BLOOD (BEAKER) (test code = 7.37 1810) BLOOD GAS, [id number] 02:59:00 Test Item Value Reference Range Interpretation [...] (test code = 1819) 36.0 OXYGEN SATURATION, [id number] 02:58:00 Test Item Value Reference Range Interpretation Comments O2 SATURATION (MEASURED) (BEAKER) 30.2 % (test code = 1455) [id number] 02:09:00 Test Item Value Reference Range Interpretation Comments PARTIAL THROMBOPLASTIN TIME 64.2 seconds 22.5-36.0 H (BEAKER) (test code = 760) RAD, CHEST, 1 VIEW, NON [id number] 01:42:00Reason for exam:->chest tubes, s/p cardiac surgeryShould this be performed at the bedside?->Yes [facility] 1975 Sex: MFINAL REPORT EXAM/TECHNIQUE: Single view frontal radiograph of the chest. INDICATION: Chest tubes, status post cardiac surgery. COMPARISON: Chest radiography from 01/21/2021. FINDINGS: Devices/Objects: Right internal jugular central venous catheter terminates in the upper right atrium. Status post aortic valve placement. Feeding tube course below the diaphragm terminates below zfihh-vg-rbfn. Right chest tube is present. Lungs: Substantial increase in left pulmonary opacity and pleuraleffusion. Similar right basilar predominant pulmonary opacities. Heart/Mediastinum: Unchanged cardiomegaly. No interstitial thickening. Osseous: No acute osseous process. No suspicious osseous lesion. U pper abdomen: Unremarkable. Impression: Substantial increase in left pleural effusion and pulmonary opacity. Signed: Philipp Booker MDReport Verified Date/Time: 01/22/2021 01:42:05 [id number] 23:19:00 Test Item Value Reference Range Interpretation Comments PARTIAL THROMBOPLASTIN TIME 113.7 seconds 22.5-36.0 H (BEAKER) (test code = 760) HEMOGLOBIN AND [id number] 22:54:00 Test Item Value Reference Range Interpretation Comments HEMOGLOBIN (BEAKER) (test code = 8.1 GM/DL 13.7-17.5 L 410) HEMATOCRIT (BEAKER) (test code = 26.2 % 40.1-51.0 L 411) Sales Enablement Consultant ID - [id number] METABOLIC [id number] 22:17:00 Test Item Value Reference Range Interpretation [...] S NOT APPLICABLE FOR DIALYSIS PATIEN TS. Sales Enablement Consultant ID - [id number] 22:17:00 Test Item Value Reference Range Interpretation Comments MAGNESIUM (BEAKER) (test code = 2.0 mg/dL 1.6-2.6 627) Sales Enablement Consultant ID - [id number] 22:17:00 Test Item Value Reference Range Interpretation Comments PHOSPHORUS (BEAKER) (test code = 2.8 mg/dL 2.3-4.7 604) Sales Enablement Consultant ID - DBPOCT-GLUCOSE [id number] 21:52:00 Test Item Value Reference Range Interpretation Comments POC-GLUCOSE METER 133 mg/dL 70-110 H : TESTED A T [facility] 6720 (BEAKER) (test code = NORM Tam [place], 1538) 95631: Sales Enablement Consultant/Techni won ID = [id number] for MARITZA VINOD GOMES Blood Culture - Routine (Left Venipuncture)2021-01-21 20:00:00 Test Item Value Reference Range Interpretation Comments Result (test code = No growth in 5 days 6463-4) [facility]21 20:00:00 Test Item Value Reference Range Interpretation Comments Result (test code = No growth in 5 days 6463-4) [facility]2021-01-21 20:00:00 Test Item Value Reference Range Interpretation Comments Result (test code = No growth in 5 days 6463-4) [facility] [id number] 20:00:00 Test Item Value Reference Range Interpretation Comments CULTURE (BEAKER) (test No growth in 5 days code = 1095) BLOOD [id number] 20:00:00 Test Item Value Reference Range Interpretation Comments CULTURE (BEAKER) (test No growth in 5 days code = 1095) BLOOD GAS, [id number] 19:08:00 Test Item Value Reference Range Interpretation [...] (BEAKER) (test code = 1819) 36.0 POCT-GLUCOSE [id number] 18:34:00 Test Item Value Reference Range Interpretation Comments POC-GLUCOSE METER 110 mg/dL 70-110 : TESTED A T [facility] 6720 (BEAKER) (test code = N[place], 1538) 59290: Sales Enablement Consultant/Techni won ID = [id number] for RONAL PEREZ [id number] 17:37:00 Test Item Value Reference Range Interpretation [...] is 2.5-3.5 for patients with mechanical heart valves.PT/[id number] 12:20:00 Test Item Value Reference Range Interpretation [...] 2.5-3.5 for patients with mechanical heart valves.POCT-GLUCOSE [id number] 12:19:00 Test Item Value Reference Range Interpretation Comments POC-GLUCOSE METER 79 mg/dL 70-110 : TESTED A T [facility] 6720 (BEAKER) (test code = NORM [place], 1538) 35345: Sales Enablement Consultant/Techni won ID = [id number] for RONAL BROCK BLOOD GAS, [id number] 12:04:00 Test Item Value Reference Range Interpretation [...] FIO2 (BEAKER) (test code = 1819) 40.0 [id number] 10:02:00 Test Item Value Reference Range Interpretation Comments MAGNESIUM (BEAKER) 2.3 mg/dL 1.6-2.6 Specimen moderately (test code = 627) hemolyzed Sales Enablement Consultant ID - [id number] 10:02:00 Test Item Value Reference Range Interpretation Comments PHOSPHORUS (BEAKER) 3.0 mg/dL 2.3-4.7 Specimen moderately (test code = 604) hemolyzed Sales Enablement Consultant ID - [id number] 10:02:00 Test Item Value Reference Range Interpretation Comments POTASSIUM (BEAKER) 4.3 meq/L 3.5-5.1 Specimen moderately (test code = 379) hemolyzed Sales Enablement Consultant ID - BSPOCT-GLUCOSE [id number] 08:50:00 Test Item Value Reference Range Interpretation Comments POC-GLUCOSE METER 123 mg/dL 70-110 H : TESTED A T [facility] 6720 (BEAKER) (test code = NORM [place], 1538) 34093: Sales Enablement Consultant/Techni won ID = [id number] for RONAL PEREZ pH, [id number] 08:34:00 Test Item Value Reference Range Interpretation Comments pH, Arterial (test code = 2744-1) 7.44 7.35-7.45 Lab Interpretation (test code = Normal 48120-3) [facility] [id number] 08:34:00 Test Item Value Reference Range Interpretation Comments pH, Arterial (test code = 2744-1) 7.44 7.35-7.45 Lab Interpretation (test code = Normal 40384-2) [facility], [id number] 08:34:00 Test Item Value Reference Range Interpretation Comments pH, Arterial (test code = 2744-1) 7.44 7.35-7.45 Lab Interpretation (test code = Normal 25134-1) [facility] [id number] 08:34:00 Test Item Value Reference Range Interpretation Comments PH ARTERIAL (BEAKER) (test code = 383) 7.44 7.35-7.45 RAD, CHEST, 1 VIEW, NON [id number] 07:58:00Reason for exam:->chest tubes, s/p cardiac surgeryShould this be performed at the bedside?->Yes [facility] 1975 Sex: MFINAL REPORT Chest, one view. HISTORY: chest tubes, s/p cardiac surgery COMPARISON: Radiograph from yesterday IMPRESSION: Interval insertion of a right IJ tunneled hemodialysis catheterwith the tip over the high right atrium. Interval removal of the left IJ central venous catheter. Orremoval of the left chest tube. Otherwise, the support lines and tubes are unchanged in position. The interstitial opacities of lungs have slightly decreased, but there is residual interstitial pulmonary edema. The small left pleural effusion is unchanged. No pneumothorax. There is likely a trace amount of effusion in the left apex. The cardiac silhouette is unchanged in size. No acute bone abnormalit y. Signed: Jerzy Ferrell MDReport Verified Date/Time: 01/21/2021 07:58:34 Reading Location: [address] Body Reading Room BASIC METABOLIC [id number] 05:44:00 Test Item Value Reference Range Interpretation [...] S NOT APPLICABLE FOR DIALYSIS PATIEN TS. Sales Enablement Consultant ID - VALDEZ [id number] 05:44:00 Test Item Value Reference Range Interpretation Comments MAGNESIUM (BEAKER) (test code = 2.2 mg/dL 1.6-2.6 627) Sales Enablement Consultant ID - VALDEZ EPATIC FUNCTION [id number] 05:44:00 Test Item Value Reference Range Interpretation [...] code = 476 U/L 6-55 H 347) Sales Enablement Consultant ID - VALDEZ [id number] 03:57:00 Test Item Value Reference Range Interpretation Comments PARTIAL THROMBOPLASTIN TIME 86.2 seconds 22.5-36.0 H (BEAKER) (test code = 760) PROTHROMBIN [id number] 03:56:00 Test Item Value Reference Range Interpretation Comments PROTIME (BEAKER) 14.6 seconds 11.9-14.2 H (test code = 759) INR (BEAKER) (test 1.16 See_Comment [Automat ed message] code = 370) The system Zoondy generated this result transmitted ref erence range: <=5.90. The reference range was not used to int erpret this result as normal/abnormal . RECOMMENDED COUMADIN/WARFARIN INR THERAPY RANGESSTANDARD DOSE: 2.0 - 3.0 Includes: PROPHYLAXIS for venous thrombosis, systemic embolization; TREATMENT for venous thrombosis and/or pulmonary embolus.HIGH RISK: Target INR is 2.5-3.5 for patients with mechanical heart valves.CBC W/PLT COUNT & AUTO [id number] 03:54:00 Test Item Value Reference Range Interpretation [...] 0-1 H PERCENT (BEAKER) (test code = 2808) BLOOD GAS, [id number] 03:43:00 Test Item Value Reference Range Interpretation [...] (BEAKER) (test code = 1819) 40.0 CALCIUM, [id number] 03:42:00 Test Item Value Reference Range Interpretation Comments CALCIUM IONIZED (BEAKER) (test 1.22 mmol/L 1.12-1.27 code = 698) PH, BLOOD (BEAKER) (test code = 7.43 1810) POCT-GLUCOSE [id number] 00:09:00 Test Item Value Reference Range Interpretation Comments POC-GLUCOSE METER 103 mg/dL 70-110 : TESTED A T [facility] 6720 (BEAKER) (test code = [place], 1538) 46456: Sales Enablement Consultant/Techni won ID = [id number] for VINOD CHAUDHARY [id number] 22:06:00 Test Item Value Reference Range Interpretation Comments MAGNESIUM (BEAKER) 2.0 mg/dL 1.6-2.6 Specimen slightly (test code = 627) hemolyzed Sales Enablement Consultant ID - [id number] 22:06:00 Test Item Value Reference Range Interpretation Comments PHOSPHORUS (BEAKER) 3.4 mg/dL 2.3-4.7 Specimen slightly (test code = 604) hemolyzed Sales Enablement Consultant ID - [id number] 22:06:00 Test Item Value Reference Range Interpretation Comments POTASSIUM (BEAKER) 3.9 meq/L 3.5-5.1 Specimen slightly (test code = 379) hemolyzed Sales Enablement Consultant ID - BSPH, [id number] 21:48:00 Test Item Value Reference Range Interpretation Comments PH ARTERIAL (BEAKER) (test code = 383) 7.44 7.35-7.45 [id number] 18:35:00 Test Item Value Reference Range Interpretation Comments POTASSIUM (BEAKER) 3.8 meq/L 3.5-5.1 Specimen slightly (test code = 379) hemolyzed Sales Enablement Consultant ID - ADMINPOCT-GLUCOSE [id number] 18:20:00 Test Item Value Reference Range Interpretation Comments POC-GLUCOSE METER 92 mg/dL 70-110 : TESTED A T [facility] 6720 (BEAKER) (test code = [facility], 1538) 11937: Sales Enablement Consultant/Techni won ID = [id number] for RONAL BROCK [id number] 13:41:00 Test Item Value Reference Range Interpretation Comments POTASSIUM (BEAKER) 4.1 meq/L 3.5-5.1 Specimen slightly (test code = 379) hemolyzed Sales Enablement Consultant ID - ADMINPOCT-GLUCOSE [id number] 11:57:00 Test Item Value Reference Range Interpretation Comments POC-GLUCOSE METER 91 mg/dL 70-110 : TESTED A T [facility] 6720 (BEAKER) (test code = [facility], 1538) 67960: Sales Enablement Consultant/Techni won ID = [id number] for RONAL BROCK [id number] 10:33:00 Test Item Value Reference Range Interpretation Comments MAGNESIUM (BEAKER) (test code = 2.3 mg/dL 1.6-2.6 627) Sales Enablement Consultant ID - [id number] 10:33:00 Test Item Value Reference Range Interpretation Comments PHOSPHORUS (BEAKER) (test code = 3.2 mg/dL 2.3-4.7 604) Sales Enablement Consultant ID - [id number] 09:38:00 Test Item Value Reference Range Interpretation Comments PARTIAL THROMBOPLASTIN TIME 54.0 seconds 22.5-36.0 H (BEAKER) (test code = 760) PH, [id number] 09:17:00 Test Item Value Reference Range Interpretation Comments PH ARTERIAL (BEAKER) (test code = 383) 7.43 7.35-7.45 HEPATIC FUNCTION [id number] 07:42:00 Test Item Value Reference Range Interpretation [...] code = 659 U/L 6-55 H 347) Sales Enablement Consultant ID - ADMINBASIC METABOLIC [id number] 04:51:00 Test Item Value Reference Range Interpretation [...] S NOT APPLICABLE FOR DIALYSIS PATIEN TS. Sales Enablement Consultant ID - [id number] 04:49:00 Test Item Value Reference Range Interpretation Comments MAGNESIUM (BEAKER) (test code = 2.2 mg/dL 1.6-2.6 627) Sales Enablement Consultant ID - ADMINPROTHROMBIN TIME/[id number] 04:19:00 Test Item Value Reference Range Interpretation Comments PROTIME (BEAKER) 16.2 seconds 11.9-14.2 H (test code = 759) INR (BEAKER) (test 1.33 See_Comment [Automat ed message] code = 370) The system Zoondy generated this result transmitted ref erence range: <=5.90. The reference range was not used to int erpret this result as normal/abnormal . RECOMMENDED COUMADIN/WARFARIN INR THERAPY RANGESSTANDARD DOSE: 2.0 - 3.0 Includes: PROPHYLAXIS for venous thrombosis, systemic embolization; TREATMENT for venous thrombosis and/or pulmonary embolus.HIGH RISK: Target INR is 2.5-3.5 for patients with mechanical heart valves.CBC W/PLT COUNT & AUTO [id number] 04:13:00 Test Item Value Reference Range Interpretation [...] (BEAKER) (test code = 2801) BLOOD GAS, [id number] 03:56:00 Test Item Value Reference Range Interpretation [...] (BEAKER) (test code = 1819) 40.0 CALCIUM, [id number] 03:56:00 Test Item Value Reference Range Interpretation Comments CALCIUM IONIZED (BEAKER) (test 1.17 mmol/L 1.12-1.27 code = 698) PH, BLOOD (BEAKER) (test code = 7.44 1810) RAD, CHEST, 1 VIEW, NON [id number] 03:04:00Reason for exam:->chest tubes, s/p cardiac surgeryShould this be performed at the bedside?->Yes [facility] 1975 Sex: MFINAL REPORT EXAM/TECHNIQUE: Single view frontal radiograph of the chest. INDICATION: Chest tubes, status post cardiac surgery. COMPARISON: Chest radiography from 01/19/2021. FINDINGS: Devices/Objects: Feeding tube course below the diaphragm and terminates below stvjc-hv-xzkc. Endotracheal tube is unchanged. Left internal jugular central venous catheter is unchanged. Esophageal temperature probe is present. Bilateral chest tubes are present. Lungs: Increased bilateral basilar pulmonary opacities. No visible pneumothorax. Heart/Mediastinum: Unchanged cardiomegaly. Osseous: No acute osseous process. No suspicious osseous lesion. Upper abdomen: Unremarkable. Impression: Increasing bilateral basilar pulmonary opacities. Signed: Philipp Booker [facility] [place] Verified Date/Time: 01/20/2021 03:04:06 [id number] 02:28:00 Test Item Value Reference Range Interpretation Comments PARTIAL THROMBOPLASTIN TIME 44.7 seconds 22.5-36.0 H (BEAKER) (test code = 760) [id number] 01:31:00 Test Item Value Reference Range Interpretation Comments POTASSIUM (BEAKER) 4.2 meq/L 3.5-5.1 Specimen slightly (test code = 379) hemolyzed Sales Enablement Consultant ID - DBPOCT-GLUCOSE [id number] 00:31:00 Test Item Value Reference Range Interpretation Comments POC-GLUCOSE METER 107 mg/dL 70-110 : TESTED A T [facility] 6720 (BEAKER) (test code = [place], 1538) 60514: Sales Enablement Consultant/Techni won ID = [id number] for Ki m, So Young HEMOGLOBIN AND [id number] 00:28:00 Test Item Value Reference Range Interpretation Comments HEMOGLOBIN (BEAKER) (test code = 7.5 GM/DL 13.7-17.5 L 410) HEMATOCRIT (BEAKER) (test code = 24.1 % 40.1-51.0 L 411) Sales Enablement Consultant ID - [id number] 21:20:00 Test Item Value Reference Range Interpretation Comments MAGNESIUM (BEAKER) (test code = 2.0 mg/dL 1.6-2.6 627) Sales Enablement Consultant ID - [id number] 21:20:00 Test Item Value Reference Range Interpretation Comments PHOSPHORUS (BEAKER) (test code = 3.6 mg/dL 2.3-4.7 604) Sales Enablement Consultant ID - [id number] 21:20:00 Test Item Value Reference Range Interpretation Comments POTASSIUM (BEAKER) (test code = 3.7 meq/L 3.5-5.1 379) Sales Enablement Consultant ID - [id number] 20:52:00 Test Item Value Reference Range Interpretation Comments PARTIAL THROMBOPLASTIN TIME 41.1 seconds 22.5-36.0 H (BEAKER) (test code = 760) PH, [id number] 20:36:00 Test Item Value Reference Range Interpretation Comments PH ARTERIAL (BEAKER) (test code = 383) 7.41 7.35-7.45 Vancomycin level, [id number] 17:55:00 Test Item Value Reference Range Interpretation Comments Vancomycin Tr (test code = 13.4 ug/mL 03-29 4092-3) CARELY (test code = CARLEY) Sales Enablement Consultant ID - ADMIN Lab Interpretation (test Normal code = 77344-1) [facility] [id number] 17:55:00 Test Item Value Reference Range Interpretation Comments Vancomycin Tr (test code = 13.4 ug/mL 10 4092-3) CARLEY (test code = CARLEY) Sales Enablement Consultant ID - ADMIN Lab Interpretation (test Normal code = 31543-6) [facility], [id number] 17:55:00 Test Item Value Reference Range Interpretation Comments Vancomycin Tr (test code = 13.4 ug/mL 03-29 4092-3) CARLEY (test code = CARLEY) Sales Enablement Consultant ID - ADMIN Lab Interpretation (test Normal code = 97722-1) [facility]VANCOMYCIN LEVEL, [id number] 17:55:00 Test Item Value Reference Range Interpretation Comments VANCOMYCIN TROUGH (BEAKER) (test 13.4 ug/mL 10.0-20.0 code = 522) Sales Enablement Consultant ID - [id number] 17:39:00 Test Item Value Reference Range Interpretation Comments POTASSIUM (BEAKER) (test code = 3.7 meq/L 3.5-5.1 379) Sales Enablement Consultant ID - DBCBC W/PLT COUNT & AUTO [id number] 17:29:00 Test Item Value Reference Range Interpretation [...] H PERCENT (BEAKER) (test code = 2801) [id number] 11:58:00 Test Item Value Reference Range Interpretation Comments POTASSIUM (BEAKER) (test code = 4.0 meq/L 3.5-5.1 379) Sales Enablement Consultant ID - ADMINPOCT-GLUCOSE [id number] 11:51:00 Test Item Value Reference Range Interpretation Comments POC-GLUCOSE METER 72 mg/dL 70-110 : TESTED A T [facility] 6720 (BEAKER) (test code = [place], 1538) 88627: Sales Enablement Consultant/Techni won ID = [id number] for FIDELIA MENJIVAR [id number] 11:47:00 Test Item Value Reference Range Interpretation [...] mechanical heart valves.CBC W/PLT COUNT & AUTO [id number] 10:41:00 Test Item Value Reference Range Interpretation [...] 0-0 H (BEAKER) (test code = 413) [id number] 10:06:00 Test Item Value Reference Range Interpretation Comments PHOSPHORUS (BEAKER) (test code = 3.8 mg/dL 2.3-4.7 604) Sales Enablement Consultant ID - ADMINBLOOD GAS, [id number] 09:13:00 Test Item Value Reference Range Interpretation [...] 1819) 40.0 CBC W/PLT COUNT & AUTO [id number] 07:00:00 Test Item Value Reference Range Interpretation [...] CONCENTRATION Adequate (CELLAVISION)(BEAKER) (test code = 3438) Sales Enablement Consultant ID - Dariela OverholtUser comments: Slide comments:HEMOGLOBIN AND [id number] 06:48:00 Test Item Value Reference Range Interpretation Comments HEMOGLOBIN (BEAKER) (test code = 7.2 GM/DL 13.7-17.5 L 410) HEMATOCRIT (BEAKER) (test code = 23.6 % 40.1-51.0 L 411) Sales Enablement Consultant ID - 6000POCT-GLUCOSE [id number] 06:35:00 Test Item Value Reference Range Interpretation Comments POC-GLUCOSE METER 92 mg/dL 70-110 : [facility] (BE[facility]ER) (test code = [place], 1538) 31763: Sales Enablement Consultant/Techni won ID = [id number] for MESERET ETTSeptember CALCIUM, [id number] 05:04:00 Test Item Value Reference Range Interpretation Comments CALCIUM IONIZED (BEAKER) (test 1.13 mmol/L 1.12-1.27 code = 698) PH, BLOOD (BEAKER) (test code = 7.41 1810) BLOOD GAS, [id number] 05:01:00 Test Item Value Reference Range Interpretation [...] (test code = 1819) 40.0 COMPREHENSIVE METABOLIC [id number] 04:56:00 Test Item Value Reference Range Interpretation [...] S NOT APPLICABLE FOR DIALYSIS PATIEN TS. Sales Enablement Consultant ID - [id number] 04:56:00 Test Item Value Reference Range Interpretation Comments MAGNESIUM (BEAKER) (test code = 2.1 mg/dL 1.6-2.6 627) Sales Enablement Consultant ID - ADMINHEPATIC FUNCTION [id number] 04:56:00 Test Item Value Reference Range Interpretation [...] code = 995 U/L 6-55 H 347) Sales Enablement Consultant ID - [id number] 04:28:00 Test Item Value Reference Range Interpretation Comments PARTIAL THROMBOPLASTIN TIME 39.7 seconds 22.5-36.0 H (BEAKER) (test code = 760) PROTHROMBIN [id number] 04:27:00 Test Item Value Reference Range Interpretation Comments PROTIME (BEAKER) 18.5 seconds 11.9-14.2 H (test code = 759) INR (BEAKER) (test 1.57 See_Comment [Automat ed message] code = 370) The system Zoondy generated this result transmitted ref erence range: <=5.90. The reference range was not used to int erpret this result as normal/abnormal . RECOMMENDED COUMADIN/WARFARIN INR THERAPY RANGESSTANDARD DOSE: 2.0 - 3.0 Includes: PROPHYLAXIS for venous thrombosis, systemic embolization; TREATMENT for venous thrombosis and/or pulmonary embolus.HIGH RISK: Target INR is 2.5-3.5 for patients with mechanical heart valves.RAD, CHEST, 1 VIEW, NON [id number] 01:51:00Reason for exam:->chest tubes, s/p cardiac surgeryShould this be performed at the bedside?->Yes [facility] 1975 Sex: MFINAL REPORT EXAM/TECHNIQUE: Single view frontal radiograph of the chest. Supine radiograph of the abdomen. INDICATION: Feeding tube, chest tubes. COMPARISON: Chest radiography from 01/18/2021. FINDINGS: Devices/Objects: Endotracheal tube terminates about 5 cm above the nitin. Feeding tube course below the diaphragm and terminates in the gastric antrum versus proximal duodenum. Left internal jugular central venous catheter terminates near the confluence of the SVC. Aortic valve prosthesis is present. Esophageal temperature probe projects over the upper chest. Lungs: Grossly similar r etrocardiac opacity. Heart/Mediastinum: Unchanged cardiomegaly. Osseous: No acute osseous process. No suspicious osseous lesion. Abdomen: Unremarkable. Impression: Grossly similar retrocardiac opacity.Feeding tube terminates in the gastric antrum versus proximal duodenum. Signed: Philipp Booker MDReport Verified Date/Time: 01/19/2021 01:51:42 RAD, ABDOMEN/KUB, 1 VIEW [id number] 01:51:00Reason for exam:->Verify corpak placementShould this be performed at the bedside?->Yes [facility] 1975 Sex: MFINAL REPORT EXAM/TECHNIQUE: Single view frontal radiograph of the chest. Supine radiograph of the abdomen. INDICATION: Feeding tube, chest tubes. COMPARISON: Chest radiography from 01/18/2021. FINDINGS: Devices/Objects: Endotracheal tube terminates about 5 cm above the nitin. Feeding tube course below the diaphragm and terminates in the gastric antrum versus proximal duodenum. Left internal jugular central venous catheter terminates near the confluence of the SVC. Aortic valve prosthesis is present. Esophageal temperature probe projects over the upper chest. Lungs: Grossly similar r etrocardiac opacity. Heart/Mediastinum: Unchanged cardiomegaly. Osseous: No acute osseous process. No suspicious osseous lesion. Abdomen: Unremarkable. Impression: Grossly similar retrocardiac opacity.Feeding tube terminates in the gastric antrum versus proximal duodenum. Signed: [facility] Verified Date/Time: 01/19/2021 01:51:42 POCT-GLUCOSE [id number] 01:49:00 Test Item Value Reference Range Interpretation Comments POC-GLUCOSE METER 121 mg/dL 70-110 H : TESTED A T [facility] 6720 (BEAKER) (test code = RAY[place]JOBY [place], 1538) [address]: Sales Enablement Consultant/Techni won ID = [id number] for September POCT-GLUCOSE [id number] 00:34:00 Test Item Value Reference Range Interpretation Comments POC-GLUCOSE METER 68 mg/dL 70-110 L : Will Rep eat Test: (BEAKER) (test code = Notifi omar RN/MD: TESTED 1538) AT [facility] [address] [facility], [place], [address]: Sales Enablement Consultant/Techni won ID = [id number] for MESERET DELVALLETSeptember [id number] 20:31:00 Test Item Value Reference Range Interpretation Comments MAGNESIUM (BEAKER) 1.8 mg/dL 1.6-2.6 Specimen moderately (test code = 627) hemolyzed Sales Enablement Consultant ID - [id number] 20:31:00 Test Item Value Reference Range Interpretation Comments PHOSPHORUS (BEAKER) 3.9 mg/dL 2.3-4.7 Specimen moderately (test code = 604) hemolyzed Sales Enablement Consultant ID - [id number] 20:31:00 Test Item Value Reference Range Interpretation Comments POTASSIUM (BEAKER) 4.4 meq/L 3.5-5.1 Specimen moderately (test code = 379) hemolyzed Sales Enablement Consultant ID - ADMINHEMOGLOBIN AND [id number] 20:15:00 Test Item Value Reference Range Interpretation Comments HEMOGLOBIN (BEAKER) (test code = 8.0 GM/DL 13.7-17.5 L 410) HEMATOCRIT (BEAKER) (test code = 25.6 % 40.1-51.0 L 411) Sales Enablement Consultant ID - [id number], [id number] 20:13:00 Test Item Value Reference Range Interpretation Comments PH ARTERIAL (BEAKER) (test code = 383) 7.45 7.35-7.45 POCT-GLUCOSE [id number] 18:00:00 Test Item Value Reference Range Interpretation Comments POC-GLUCOSE METER 74 mg/dL 70-110 : TESTED A T [facility] 6720 (BEAKER) (test code = NORM Tenorio [facility] [place], 1538) [address]: Sales Enablement Consultant/Techni won ID = [id number] for Stacy ew, Binchil [id number] 17:36:00 Test Item Value Reference Range Interpretation Comments POTASSIUM (BEAKER) 4.2 meq/L 3.5-5.1 Specimen slightly (test code = 379) hemolyzed SARS-CoV2/RT-PCR (Asymptomatic ONLY)2021-01-18 14:08:00 Test Item Value Reference Range Interpretation Comments SARS-COV2/RT-PCR Negative Not Detected, (test code = Negative, See 00157-7) external report for linked test SARS-COV-2 [facility] PERFORMING LAB (test code = 24147-8) CARLEY (test code = Negative result for [...] of the Act. Fact Sheet for Healthcare Providers:https://www.[employer]/sites/default/f carlita/product/documents/F act_Sheet_HC_Providers_L zjk_DRRN-AgX-3.pdf Fact Sheet for Healthcare Patients:https://www.Orderlord del.[employer]/sites/default/fi les/product/documents/Fa ct_Sheet_Patients_Lyra_S ARS-CoV-2.pdf Performing Laboratory:[facility] [place] [address] [facility] (Asymptomatic ONLY)2021-01-18 14:08:00 Test Item Value Reference Range Interpretation Comments SARS-COV2/RT-PCR Negative Not Detected, (test code = Negative, See 35995-8) external report for linked test SARS-COV-2 [facility] PERFORM[facility] (test code = 39575-9) CARLEY (test code = Negative result for [...] of the Act. Fact Sheet for Healthcare Providers:https://www.TwentyPeople.[employer]/sites/default/f carlita/product/documents/F act_Sheet_HC_Providers_L lbn_HLDY-CuN-3.pdf Fact Sheet for Healthcare Patients:https://www.Orderlord del.[employer]/sites/default/fi les/product/documents/Fa ct_Sheet_Patients_Ly_S ARS-CoV-2.pdf Performing Laboratory:[facility] [place] [address] [facility] (Asymptomatic ONLY)2021-01-18 14:08:00 Test Item Value Reference Range Interpretation Comments SARS-COV2/RT-PCR Negative Not Detected, (test code = Negative, See 63865-3) external report for linked test SARS-COV-2 [facility] PER[facility] (test code = 15535-4) CARLEY (test code = Negative result for [...] of the Act. Fact Sheet for Healthcare Providers:https://www.TwentyPeople.com/sites/default/f carlita/product/documents/F act_Sheet_HC_Providers_L tvo_MUNA-LoW-7.pdf Fact Sheet for Healthcare Patients:https://www.[address].com/sites/default/fi les/product/documents/Fa ct_Sheet_Patients_Ly_S ARS-CoV-2.pdf Performing Laboratory:[facility] [place] [address] [facility] Center[facility]OV[facility] ([facility])2021-01-18 14:08:00 Test Item Value Reference Range Interpretation Comments SARS-COV2/RT-PCR (test Negative Not Detected, Negative, code = 1840972) See external report for linked test SARS-COV-2 PERFORMING LAB [facility] (test code = 0175099) Negative result for this test determines that [...] justifying the authorization of the emergency use ofin vitro diagnostic tests for detection and/or diagnosis of COVID-19 is terminated under Section 564(b)(2) of the Act or the EUA is revoked under Section 564(g) of the Act.Fact Sheet for Healthcare Prov iders:https://www.Flix[employer]/sites/default/files/product/documents/Fact_Sheet_HC _Wjldhldvn_Dbwb_HHCL-RuE-1.pdfFact Sheet for Healthcare Patients:https://www.Fl[employer]Chip/sites/default/files/product/docume nts/Fabd_Qlxrl_Etiieihe_Siii_DWQZ-GbL-6.pdfPerforming Laboratory:[facility], [place] [id number] 12:57:00 Test Item Value Reference Range Interpretation Comments POTASSIUM (BEAKER) (test code = 4.0 meq/L 3.6-5.5 379) POCT-GLUCOSE [id number] 12:40:00 Test Item Value Reference Range Interpretation Comments POC-GLUCOSE METER 81 mg/dL 70-110 : TESTED A T [facility] 6720 (BEAKER) (test code = NORM Tenorio [facility] [place], 1538) [address]: Sales Enablement Consultant/Techni won ID = [id number] for Bent on, Gladys Sputum Culture + Gram [id number] 11:19:00 Test Item Value Reference Range Interpretation Comments Gram Stain Result 1+ gram positive cocci in (test code = 1123) pairs and clusters CARLEY (test code = 4+ Normal respiratory CARLEY) mendy present [facility] Centerputum [facility] + Gram [id number] 11:19:00 Test Item Value Reference Range Interpretation Comments Gram Stain Result 1+ gram positive cocci in (test code = 1123) pairs and clusters CARLEY (test code = 4+ Normal respiratory CARLEY) mendy present [facility] Center[facility] + Gram [id number] 11:19:00 Test Item Value Reference Range Interpretation Comments Gram Stain Result 1+ gram positive cocci in (test code = 1123) pairs and clusters CARLEY (test code = 4+ Normal respiratory CARLEY) mendy present [facility] CenterPUTUM CULTURE + GRAM [id number] 11:19:00 Test Item Value Reference Range Interpretation Comments GRAM STAIN RESULT <1+ WBCs (BEAKER) (test code = 1123) GRAM STAIN RESULT 0-5 epithelial cells (BEAKER) (test code = 261046) GRAM STAIN RESULT <1+ gram negative rods (BEAKER) (test code = 401071) GRAM STAIN RESULT 1+ gram positive cocci (BEAKER) (test code = in pairs and clusters 954518) 4+ Normal respiratory mendy [id number] 10:15:00 Test Item Value Reference Range Interpretation Comments PHOSPHORUS (BEAKER) (test code = 4.7 mg/dL 2.3-4.7 604) [id number] 10:09:00 Test Item Value Reference Range Interpretation Comments POTASSIUM (BEAKER) (test code = 3.8 meq/L 3.5-5.1 379) [id number] 10:09:00 Test Item Value Reference Range Interpretation Comments MAGNESIUM (BEAKER) (test code = 1.9 mg/dL 1.6-2.6 627) RAD, CHEST, 1 VIEW, NON [id number] 08:45:00Reason for exam:->pigtail chest tube placementShould this be performed at the bedside?->Yes [facility] 1975 Sex: MFINAL REPORT RAD, CHEST, 1 VIEW, NON DEPT INDICATION: pigtail chest tube placement COMPARISON: Numerous seven hours prior FINDINGS: Portable frontal view of the chest. IMPRESSION: Support Lines: Pigtail catheter has been placed over the right hemithorax. The left IJ central venous catheter has been retracted now terminating at the junction of the brachiocephalic vein and superior venacava. Remaining support hardware is stable. Lungs and pleura: Unchanged airspace and pleural opacities. Near-complete resolution of the right pneumothorax.Heart and mediastinum: Stable contours. Stablesurgical changes.Additional findings: None. Signed: JR Bebeto, Taye Vegasting Verified Date/Time: 01/18/2021 08:45:59 Reading Location: [facility] Radiology Reading Room [id number] 07:01:00 Test Item Value Reference Range Interpretation Comments MAGNESIUM (BEAKER) 2.1 mg/dL 1.6-2.6 Specimen slightly (test code = 627) hemolyzed COMPREHENSIVE METABOLIC [id number] 06:55:00 Test Item Value Reference Range Interpretation [...] APPLICABLE FOR DIALYSIS PATIEN TS. LACTIC ACID, [id number] 05:22:00 Test Item Value Reference Range Interpretation Comments LACTATE BLOOD ARTERIAL (2) 1.0 mmol/L 0.5-2.2 (BEAKER) (test code = 2874) HEMOGLOBIN AND [id number] 04:50:00 Test Item Value Reference Range Interpretation Comments HEMOGLOBIN (BEAKER) (test code = 8.4 GM/DL 13.7-17.5 L 410) HEMATOCRIT (BEAKER) (test code = 26.9 % 40.1-51.0 L 411) Sales Enablement Consultant ID - [id number], CHEST, 1 VIEW, NON [id number] 04:47:00Reason for exam:->chest tubes, s/p cardiac surgeryShould this be performed at the bedside?->[facility] : 1975 Sex: [...] relay them to the physician. Signed: Sharon Krishnan MDReport Verified Date/Time: 01/18/2021 04:47:41 BLOOD GAS, [id number] 03:37:00 Test Item Value Reference Range Interpretation [...] (BEAKER) (test code = 1819) 40.0 PROTHROMBIN TIME/[id number] 03:29:00 Test Item Value Reference Range Interpretation Comments PROTIME (BEAKER) 22.0 seconds 11.9-14.2 H (test code = 759) INR (BEAKER) (test 1.95 See_Comment [Automat ed message] code = 370) The system Zoondy generated this result transmitted ref erence range: <=5.90. The reference range was not used to int erpret this result as normal/abnormal . RECOMMENDED COUMADIN/WARFARIN INR THERAPY RANGESSTANDARD DOSE: 2.0 - 3.0 Includes: PROPHYLAXIS for venous thrombosis, systemic embolization; TREATMENT for venous thrombosis and/or pulmonary embolus.HIGH RISK: Target INR is 2.5-3.5 for patients with mechanical heart valves.[id number] 03:29:00 Test Item Value Reference Range Interpretation Comments PARTIAL THROMBOPLASTIN TIME 36.3 seconds 22.5-36.0 H (BEAKER) (test code = 760) CBC W/PLT COUNT & AUTO [id number] 03:23:00 Test Item Value Reference Range Interpretation [...] PERCENT (BEAKER) (test code = 2801) POCT-GLUCOSE [id number] 01:17:00 Test Item Value Reference Range Interpretation Comments POC-GLUCOSE METER 80 mg/dL 70-110 : TESTED A T [facility] 6720 (BEAKER) (test code = [facility] Tam [facility] [place], 1538) [address]: Sales Enablement Consultant/Techni won ID = [id number] for MESERET September [id number] 22:01:00 Test Item Value Reference Range Interpretation Comments PHOSPHORUS (BEAKER) 5.1 mg/dL 2.3-4.7 H Specimen slightly (test code = 604) hemolyzed [id number] 22:01:00 Test Item Value Reference Range Interpretation Comments MAGNESIUM (BEAKER) 1.9 mg/dL 1.6-2.6 Specimen slightly (test code = 627) hemolyzed [id number] 22:00:00 Test Item Value Reference Range Interpretation Comments POTASSIUM (BEAKER) 4.0 meq/L 3.5-5.1 Specimen slightly (test code = 379) hemolyzed PH, [id number] 20:14:00 Test Item Value Reference Range Interpretation Comments PH ARTERIAL (BEAKER) (test code = 383) 7.49 7.35-7.45 H HEMOGLOBIN AND [id number] 20:04:00 Test Item Value Reference Range Interpretation Comments HEMOGLOBIN (BEAKER) (test code = 8.1 GM/DL 13.7-17.5 L 410) HEMATOCRIT (BEAKER) (test code = 26.0 % 40.1-51.0 L 411) Sales Enablement Consultant ID - [id number]-GLUCOSE [id number] 18:31:00 Test Item Value Reference Range Interpretation Comments POC-GLUCOSE METER 81 mg/dL 70-110 : TESTED A T [facility] 6720 (BEAKER) (test code = NORM Tenorio [facility] [place], 1538) [address]: Sales Enablement Consultant/Techni won ID = [id number] for RONAL BROCK Tissue [id number] 16:48:00 Test Item Value Reference Range Interpretation Comments Case Report (test code Surgical Pathology = 104) Report Case: [id number] Authorizing Provider: Tereza Galvez, Collected: 01/11/2021 03:53 PM Ordering Location: [address] Received: 01/12/2021 08:17 AM Pathologist: Fredi Hermosillo MD Specimen: Mitral Valve, Mitral Valve (send for C/S first) DIAGNOSIS (test code = p8ebcSXbSVXwz5noWEJltA 3220) FuZzEwMzNcZnRuYmpcdWMx IHtccnRmMVxlcGljOTIwMl ydfpKwLPKinHStP8Gankxr YLerFW7fZX3gqVtoyRRbsN MlUAIvZvVsi0qtq599uBLp t4qrJOMTxtcmmWh5wDurA7 4xa9T1PllaW28czCJvOAxv bGFpblxmczIwIEhFQVJULC BNSVRSQUwgVkFMVkUsIFZB LBLQWCDWWQ4VIBdddATjJE IILtQJWe0YHLDIJPUJENRB XDpYXHMHYX4ZWZYQPzSAEK 4KIparOTLGOB4QLjWJWGFm DpFWCHSXJFSOCFQWQ7DLLH BhciBMRUFGTEVUUyBXSVRI IPRCI1UPHL5GSJLCEEBREV VCRVDEPglQTLDEMBFNH9NL LOCXK7MCTcQckPYacKjpxl GmDTxau5VrKLesHWPeCI8r vOrqAIBcAL2jPJMhF4zojQ 6zmos6ZfGwHRCdWtJ0YYIo tsK9Qsc8WWQsMLixn9wmp4 MwBPKyWDe1dYpiCrKuXXSt m5efrrMhOpSmHGLtCSIoIQ IkmQPkH647q2don6idtbWu gBW9TKLjTKV1SIuzqtHjkd W0BGxqpDQrAqH3UZzkxjYd IMtydjGotbWsKur1QKDfB1 52PIU6pWgqe5ueDHH7XIPk DVAxMzSyRn2qeALcO550YH FqHMSXPHWmwBy0ESRuonCi owBpnNFWw499J047s9jkHI DuvlSwzWzLyayll1lzB616 XHBhcGVydzEyMjQwXHBhcG WloWB0HNFpQX3rnbczBTux ERbnQLMunzP2VDUjlGYoZ3 WwRMRrKN3cqalrFVC0RJcg IZPgGZD7NpDwZLKyo6Qdgy m5IqUxzc8dhb53NGZ6l5Aq cBbmUBY9FAV1SgDqXz6hkZ OsNJSxVF0xPzGxtDMmDNXg if14jAazXBnkDUU8NOEsxa Gzv0Jsl2zlGvAuxlJmF0ft R2BzPNRxVYYsMCVgAiQrpl Axw0Rng8FenPKacUe4w9mh WCYsMXYszEjau8eaPOO3YS WuhVAjB6kenC1gGJAjPR9g pzoar6vwMXfuTDzdCZLiyX L7znW8GASgcMZkP9ZdzD4j RCNuPXscNJLwoqy2KuEnUu 9vdGVyeTcyMFxzYmtwYWdl XHBnbmNvbnRccGduZGVjXH BsYWluXHBsYWluXGYwXGZz MjRccWxcbGFuZzEwMzNcaG ljaFxmMVxkYmNoXGYxXGxv P6lmJiWhIhQtMzo6BYAceC TiDQOkAwv5XMGspWBnJUTD gYkiwV9rSUHheLricF7xaQ L6DOKgsaDevOXKzY8zWAUO yB3cHfE9YvEbTyR8QAf5DF FccGFyfX0= COMMENT (test code = u6pmeEPjMDJksNL2CeXfYO 3857) Qbt1sjh1VccLCekQWwEFxq uGKknjJetw95tOQ1bC48XT 6nRIAkPpO8VMKwucT4Eow1 HIUyITRjxWUeY811x5wki8 lwudZssRE2dDbyDBZvTYAy YWluXGZzMjAgVGhlIGJhY3 EuneyiXCUjkvAomE4sDDYp mzX0rSLvogIeJFKevFnipa AfgwJmEAOfRF3oauY7DRTr DJ2dDSQzxzubGec5CSG8IR xeyX6aIWuvyOuglMvsx3Ot KXoxBC3nDHC5BSqfwsKzfa PkT94NBVU9JXvksqajYcT6 SMLeTKEhyvFbe91varKkbC Xtk8RbjK5zb1e6PKgkOZTo WTAbh6VyO08wS2snGFxrUZ J9 CPT Code(s) (test code p1uxrYNfMBRvfJU2ZoYwNK = 3357) Dfu7zkg8ThmYJyeQGmIZss tNGndsLies38qWQ2oF38AC 0eNHZmGfD3KVPufwO2Ipz5 OOCkGCBbmFDkS593b0kqw8 gtxuJnaJS9mWfkWZGzMYXq WNvcQKZxRzPzTOhsZPV8PK b6KkPnLOefB2ktWLZ3 CLINICAL HISTORY (test b7txhUJdHHWijGK6PkTlRK code = 3356) Yur8lsq0JhmZYuwPPcNKiq eLXevtBdeo72cKG5vR31LB 6yVNVtMoV4XRYiyxX0Rgs7 ZMKbKQMwgWHfE545g0jro3 ptcrOxnHJ7mJtnHTNsIRNv AJcoHVCyQrPxCU8gj4Jads XmiZesML5qLA4fnRZjqLG8 MZe5UXLcoQYltM== SPECIMEN SOURCE (test v5enaXUgPCZynPP7VaZxVH code = 3377) Duf8smq4VghZMhcHVtADvb nYJjnwDbdq46bLP9eE33PK 5aGSNbMtR9UKYfwbF4Ulu6 JOUlXABawEEjV120x2jwt5 ckqiVmtAV4cJsePOVvLLZi BYszEHLtXaNrXIg1kxXdRW ZhbHZlIFxwYXJ9 GROSS DESCRIPTION (test w6rdjLCuVUWhgKAwZyXyMP code = 3366) IgMDHjq2jmKAKvxSDsOlFe MzNcZnRuYmpcdWMxXGRlZm Vtq9nxm270zFVcr3bbDVEL xlclqGt0a0ezIWZmFeT3uC WjENvlX8zadyYktJLgROTm PCv5uD92BNEcgH4zsOSmVR ntrrHpUbF9TSbaCIQjDbN5 TQNdbQXrRAKzR4ijYIQcYF zcLLXzKBokvQFuTJB0fHli y9Z9eRAwpULrkJmnJgHnEr YiALGAn1NyDBm2oVzfL0Vv LWAoGpR1zHQnIRYiRGusQS OvJDHasbW7tU36EGglvoK0 bESjq0Vcj35ts633rX5rfB EsUJL8TAFyYVEulZKhISJx SDP3BBUbsLVxA8x5VtJclZ BvY3E7PwDzqGKoS0Q4AxAy jMYeE2M1QcOkdCLsELBbwS MkBc5lxOTnxIXvew9uzu17 NPA7t4NrrSdoVVR6ABK4Yy RwSd1juBZqYRXfJCUoqNDr BGChCT1rnJQkGXQzbQ7xzh xjXHBnYnJkcmhlYWRccGdi qhSpHf8luHljWKT5PJlgL7 kicF0rAaQ2AHycB9kbwN3b CXy1NImptLR7XIXbpG8yKW 7vkzful1bkNxZyOH9ojnkv f8qlRfBcOE5doyb7w3zqJe XyIY8aopbac3tjChKlYTgk KIEkfdtcTLIbs3VrcxnqXS Ywy6DzJ6UocNkmQ93zdAtd T25eZNBeiCyzpQ3alGsrdW 5cZjBcZnMyNFxwYXJkXHBs YWluXGYxXGZzMjBcbGFuZz EwMzNcaGljaFxmMVxkYmNo NXQjFQfjO9gaSvPuNmQbFH BSZWNlaXZlZCBmcmVzaCBs YWJlbGVkIHdpdGggdGhlIH OwaWtoniSnxnPkUW5pNNMu COGfA6DnUOTaN50hJIXypL 1iZXIgbnVtYmVyIGFuZCAi hPx2vtMdKPJdwAOgVhWlvc JrCVRyUSJ9GMZtYOQ8ZUHg ZNSngQVtO6vxGOjhrUZzh5 YgdGFuLXBpbmsgdmFsdnVs AZNiqQfxa3OnXJiizJikDQ K3SABtVGMuM3Ocd4UvnSE9 hkUcfAZlq7RctNRjJ6hffa QfAOT5EU2mxU8gIC7tDLwe IHNwZWNpbWVuIGlzIHNlcm rfdUe5YPNsD8Hcg83qUYN3 fxSlYBJmQSglUfClQ1c3FI siuUljpgY1gaH6LN5eFBPs sr3iVEY0rFYyhIHmYRAhgl C9fEMrQTJksHPnFmdwEFPh i98gKM7lCVG5pnulFaD0hT W1xqFgGnYiG69jNWXtySLn y2GriVH2gDDrYYQeS6Nnp0 3eFEEsWXLlxCZedLZ8BWUn yM0iP4Guy4M1gIEzONFpSa 5syC98xQ9qPYZbmQEhIGEd O5QhY2drjCUvqHlpis9oOY qUG3Z6SUErmm8= MICROSCOPIC DESCRIPTION z4ljyHOeNTTutTJ2LuYuFH (test code = 3371) Aup5lqz1EmmZGycOTxPMzf oGAnjnDnxn97yHP3eQ64EO 1lGZSmBxI5MRItirO8Mhk1 EZZtEAFozOYvZ483s5nnr9 rjmcKxpAI0hVqwDEYxSZHk XRluRAPeRnEtQWSsVi6heL VkXHBhcn0= SPECIAL STUDIES (test q6zxoNNvFGArp2anHPLkyI code = 3376) FuZzEwMzNcZnRuYmpcdWMx VKkqurKyZLikj1RxX6KoRp AwMFxhbnNpXGRlZmxhbmcx CSHgRMA0deOnYGXfCRonNQ KjYOpmVz6ouMHoiLomOmOz NEZep4hzmlWSxkxruRs4n2 wuOPFuIsU3wNBsFDtaQ6ro poEouMFwN4ClgFXwrIi4y6 noBuNnWjC8fRLpQVcqE6qw eyHyoSYvHTLnGGn0xQ08QA QeqN7ymTPuGWtgjyFjKmI8 OMwfXNMoDxG1JHNguQBgSR VnI2wlJRGdXFfmZXAxUIxh hMZiDPQ5qPxfa4H9qCHyxG GwnRdjUnXlOwMzStGZe4Iz GMx3gWrlU8UcIQXaBbJ3eO QgUGFyYWdyYXBoIEZvbnQ7 kZgzolOee36eaJOvAEKmXR ItVqJxqZjvTPGbQGZLv1Tu yYisGIG3cYc6nZblTccqRH P2Lps3DJ5qpr10gqq8iTmg YCMwzdklImZ2CMuyDOHrea uvNNq3EHfjWMHhiAG0SZIn mMKdZ7WoLFWoWL7lrbp4QN N2VIdzIFFoXkP7EMIegDJr SVCedTncOIhlf209GYG4Md XpED0pM1Xjm7V8uL5bbZKt EWVonXYmAqXhPMVnxm3xqX JjGBpxx6InVYQ4cbJ5zJQg cZHkFCUbDY14Bhlvi5QtAp iav2NbN69nhVY8UMzad6jt RB1xGbA3htSpIEaju8ygiS 7eFeK3RYnwER2mXZ6vMFCx pO5revdwHUFwFdYyrqdzWS OhcSdczjOpUb1kvGpzKDG2 BCbqM4opgF1gTlW0DRllE6 rcfG4hKPb9JGuztGB5NXDj gC3gQA3ctldjv8rrYAizMP leASHkjlV3veK4SSGxrNXo K4XjwL7xIWZfMR2oweotn5 fgQJV0XXqvHHMdPFT0KkHn DBSoy5Jltva6FqIlf7IgdH TfGDucI35sy756TINfxkEk R9vxwLCmfhvtiVZrhapjJL ksleK8AOImPLLsRPxcIIFn XGZzMjJcbGFuZzEwMzNcaG ljaFxmMVxkYmNoXGYxXGxv C2caQlGpS6ZeFEArMiLgVG tqEAwvlHOcoTAhwAT0aV1a UO0uODUscXTfK4JhWCEhkt BrdBIyONP9wZTozFToHM3v YTueuKGac7irr2XfG9yejI fgxRQ3UV8uHGIxJMEkYZvx s0SzbI9tCufxwJXotjrbMH xmczIyXGxhbmcxMDMzXGhp S4svUsPiUDMjlQsqWAkfr0 NoXGYxXGNmMlxmczIyXGx0 cmNoXHBhclxwYXJccGxhaW 5bMpHlDaZaUdnnWK2eHWCx A9xuuKSuNUUsWZOtP4xrTn IvrI4wjHtrIRcsKuGbQxTk SbUAl850us8nXXUheWSgjn GIxSLstM3xXTrcANfpEZzu uWEuLXndt9dcIWSzi3b6eU OxIMJuaeHlo7jkYNczxjGr YFEpbIJxqZCzDARle09jRM zozJmmnVttCIRtm6XseJkd o4TvLwGfUMycp3LeI87uiO JvbCBzbGlkZXMgcnVuIGFs c03yj7sxTNYaIcQ4pECtmB I7lRZyqFIzn8WxcCakUFLp q2irLKHcah3rvaqgcENxm4 VgwG5xninbBHkxjRIffbWl UDZpg7h5qNNhGDXlXTLbGJ qhbWl0XWWgr606oo9qeiR7 pUEeXNE9RQtjAIFeQOAyjn UgZXZhbHVhdGVkXHBsYWlu XGYxXGZzMjJcbGFuZzEwMz NcaGljaFxmMVxkYmNoXGYx NYvpI0wpSyZgH9NzWQWuQx ZmsZKfP3gsbIRnXOByFAey XGYxXGZzMjJcbGFuZzEwMz NcaGljaFxmMVxkYmNoXGYx GSbkG8yhThSrO0QpVSBqYy IgIFxwbGFpblxmMVxmczIy WRdrnnnmUPXzAMjgP9ehRc GpAPIxrCvaQKvnw7GvLZBi ADPvSsdllfLkEFh4unXxSE BhclxwbGFpblxmMVxmczIy NThhxpbkMAJxEPafG8ryJv YhYAWlbOvfHZpwy0IaFDYi XGNmMlxmczIyIEltbXVub2 uex5TjT3tjrCvawXL1NFTh C0jmqWDykIS5XVB5yY9yNR httyTqJYSdp8LiPKMjWJXl VdG5rY8bZJF9DnQHqGkjBW BsYWluXGYxXGZzMjJcbGFu ZzEwMzNcaGljaFxmMVxkYm UjSVHcODrjG9ywQzOdK3Cf VWMqBvScsEgsVAijAJg8Gb xwbGFpblxmMVxmczIyXGxh cdrcUCUxREgfY8eyPhSiBE CliFbxXUumc1JyWOTaLGGk MlxmczIyIHMgTWVkaWNhbC YBER01ZVXkYLEyoKorbF1d iHJXYMYzbvC0a0Q0SRcyMM MuBOy9GNxkpwWbKDZozP6o YMVhXM9zKNs3pwZoXSIxp4 IvLR8lHQVohTDvCVS0KLAp p9DzU1Fjs4SlHCFwYUYbmo 8sipCvHbWUgWJbAMJrkn92 CRNpAB4zD9zqRERdTCMbaz FrsDGls2LbLLRkuML7iHYx LX2JTxVXm44zGMMgLTFJll OsGXPyvRodgEE3mpT7nN7j LiBUaGUgRkRBIGhhcyBkZX Ovyj3bkaCwDSGcJAHbq9Uf rZVmxKMfwfAvC9Bns7OcYH Gynm16VZpuxHNcwo50QV0o D3Ymw8AgfR9vEJmwVAPlq8 XphGDzxPSnIRQvy7ZwU3qz fovtRBffoXCieC8oSMYaGJ z3JVDwj2UjDPQem8SmOyQw aiSsBVItNNPeBKXnsH74PL H6lYkxnArwxzKgIH2sNSAw heYdZTXpEMZtxM0hUVihme MySTUctlO6r5N7SFhkRFAc agMgMberXQX8waNwkxK6jQ PnN8ftlxpaPOxuTGGra3Bl cI7ntYNAzKVtf4TbdDEelC HDwEWjNI4rcfMjTL7dEBC5 ODggKENMSUEtODgpIGFzIH V4LZyiYniuYXE8ziAwVMJh n1XtRPftE2eoZ22nwGtslR p5jFQfcBlmiIZltKAcIXIk jgK8s2Y3LOZvj2XtojioPP BsYWluXGYyXGZzMjJcbGFu ZzEwMzNcaGljaFxmMlxkYm MiMTLjONlrX0tmJwGmWhMk DqweRGS2xJ== [facility] [id number] 16:48:00 Test Item Value Reference Range Interpretation Comments Case Report (test code Surgical Pathology = 104) Report Case: [id number] Authorizing Provider: Tereza Galvez, Collected: 01/11/2021 03:53 PM Ordering Location: [address] Received: 01/12/2021 08:17 AM Pathologist: Fredi Hermosillo MD Specimen: Mitral Valve, Mitral Valve (send for C/S first) DIAGNOSIS (test code = [id number] 3220) FuZzEwMzNcZnRuYmpcdWMx IHtccnRmMVxlcGljOTIwMl xwlkYkTKJixANgZ5Ujwael JMitWB9mGY2elSxnxGNnnQ QiCDJtVlBab9xor443iGJv t7kgMNQHhbtodGd5zYngI2 4un5T3ZnseQ72kxFKxXUoq bGFpblxmczIwIEhFQVJULC BNSVRSQUwgVkFMVkUsIFZB JNWNAKETXV8XEUvfmPRvZD HHZxQHXv5MQDQHALIOHNEL ZWzMGIYPIT8UISIYEcIKOU 5DAzirUQVTNT8CIcTZZTZy SmREZVDCFTFEDMYJC9WTND BhciBMRUFGTEVUUyBXSVRI ZYHEH4DAHD7PQDBGHWBLAO DCRAQCDbjDJPRRXCLLA3KC XJUSN2QHVrNpiWNvdWlhjo YfXQniu7UsQCzhNBTmLP4z iGqdGKGmIW7iVCAwQ6ptbR 2hpff0KzLeSXRaGeC2GSSc utN9Efc9MVGeBEzvs1ptk8 CbHVGoALb2rFmkUzDqHRRq o7fkycQeAlAdQBDdYBKjQM VmbVJiI943i5fcw4hcldHl qWR8WBUzMFY9EZuefoAqgn D3CXqcaFGpGrS9YRxddoRs DKqhbgNzneUnBzn8PYBiW9 54IFC8aRozk6gzQKZ3SOXa JQWoSnSrPd5svVVuS683PW YnBUSLHGNtlLt6IYDuegFs esGqcDWOn014Q294d0haLG CcnkPcoPjPdfrlr7pdS988 XHBhcGVydzEyMjQwXHBhcG CpoXB9CGHnJK1npkzbLEam LNflDXVmhoB3OSUtpWMgD8 NdKSAgHS8sfbdlGXJ3TLdm CIIkPDU1VnBeWRLas0Pvol t1AtExim3kdc05DVU0h0Mj xXlrIPV0GUY8CcJfTz4hdU SeHJDxTE7zPnMjdPLnEIVp ua88aFfjDJvuUBP4IEJggd Wzu3Swm0vnWbWhssYaL5ix R2BnNJNtSEQnHMNmYxJvsa Fsu7Arx8QtjKVdoTd7h6ji YQYhNFLnjTkbp9tyQMV3HJ BimGRiT6lqjY9iPYLrVS8s mnobm7kaWXthGAzbTNUtdQ W9vpK6RJVmzTCvZ4IcqU4r EKYlWMcjVVUxzkl2YkUpVq 9vdGVyeTcyMFxzYmtwYWdl XHBnbmNvbnRccGduZGVjXH BsYWluXHBsYWluXGYwXGZz MjRccWxcbGFuZzEwMzNcaG ljaFxmMVxkYmNoXGYxXGxv D3pgXdObLkRwYpg9QIRkjQ ScPYXlSsq8WIXesSTcTNJY eArrlV5gJZSupNrdqV8inM O4USWhigOpgOWLgZ1jDUKE gO7eUoV9JeAoHyA4XIg2LG FccGFyfX0= COMMENT (test code = f9rboMXnQXZdcIU4BjSxLC 3359) Hsr8mli2KquGUvxJAxUCku tEZsqjBrhx60fDC3cJ57ZC 6kQBFvSnC0PHDgdqI6Biy2 HOUlAIOhmDCgX897s4ido2 aayqDvqJQ2hCimCCEhQLQo YWluXGZzMjAgVGhlIGJhY3 JkbxtfTEYwxrPyaJ5hJQAj vwE3tRNbsiItIPUhvQfcoq FogaGuMLLvPF2xizP3NWTu CZ6jDEWeparbQte8EYR8ZA owgJ2uDTpliTsryYvfx6Jn MMeeHJ8rJVA6IHashuUaet HvM47NPNF7BMndtuhcEsT1 WEDgUOTginErm40zzbGgfP Dem8SriU7wt8i7DKmjJMDf CARln4UlF47aE6peJLioCN J9 CPT Code(s) (test code o3jvmKFbPCOafFJ9PsVqRR = 3357) Nsc5tst0OhtCFtbYGnEBmq tOPscqVwru03mZY6nV00UE 6iNVKwShD7PAUolvG2Oqw0 DADkDNTxiQRlN980o8vsh5 rbbiMkbBI2mPbhXWZpJFUt PVhpPLLkAfBwZUysJVW8CL a1AzEiLWprK7cnACO6 CLINICAL HISTORY (test s8njoAJeYPGqeVM5ZhMxKO code = 3356) Als0arf5QllITfsSLaNMff aZCdpiNdhl04fVJ1uO33JD 9eEHQhVtO1NDNllrQ3Vmy1 POAePOHczUWtA054a5bib3 kxiiCzpBK0mBmyPKUkHCYo OBebIIWmDyFiGA0nr5Mzzi LrpPxvIX6tOY4czYYppZD3 JJc7GLGaeSHziX== SPECIMEN SOURCE (test k8kcfRXvGPRokGD1HpGqLS code = 3377) Hca9ixv2ZevVYdoLFjVCmr bQZvtyBtfu97rNS6uA45BX 9bSGAyOqP0BFSdylA4Syi3 KZYkKKZzfMIoV171n8etl5 wulkXffRQ5cZogZOZpTXUw XBemWNQuWzKuVOy0sqRwDF ZhbHZlIFxwYXJ9 GROSS DESCRIPTION (test t8hkaZWwXBXzdRLzScIgCQ code = 3366) MjUWVoy8grBJTiiZLaJuHv MzNcZnRuYmpcdWMxXGRlZm Agp4xze871uGEvd8fsWJCW nnxytZd8f0vbSIDpGoV5qE BxRKixR8hpntYotIAeSOCu JRy1qT77XOFmuH6baWXdQL qyamOoAhK5VJxiNIYvFhH0 SLIfgMAxDDEqT0eqAGLkKR acNIKzOMjziDRjSHB4gIpm q0P7qOVcaDNhpOliIfVtTk MaNZJOp8OhEFi1bKnuQ1Ih XWRlZkH7kZPdGQCgKZuqEI IqUGNbppO8qJ32JBglzpD2 dEOwg6Cyj51cu904iB2ncI DkCCP8BXHoHNWxcJNjABJx OSB9FVInzPTiW4s2YqQweC NsV9B3DyCthPVaL7U1SaKp uZQzE4E0YiUtcNEgUUUsoT XsMl7mjPNetBSmaj5wgm73 PPB0n0YkkMdzIGM9EPM2Vh TmZs0kuBHbKEOhLWOihSMy XEEqBZ5zmZUzCBUjoH9ejz xjXHBnYnJkcmhlYWRccGdi djYhUd8koQfeBSL1WVflG7 ukkU2uIzG2AHbqB9lbmC2z IMs8UYebmCJ8CNBftN2oWL 2ioszxx1ucWtToHC5oqfxp s1vfZfPbPH3qsid7g2zxWj EnKP6zqtzni6gaHpSyXDxw AKBitjhtWWGzd6AoogudBN Loz6NaU4LenYksY01wzGaj M70hDDBvsYgvzJ9piNdufB 5cZjBcZnMyNFxwYXJkXHBs YWluXGYxXGZzMjBcbGFuZz EwMzNcaGljaFxmMVxkYmNo GDUvGEqoS1jpDuBsEbBpSS BSZWNlaXZlZCBmcmVzaCBs YWJlbGVkIHdpdGggdGhlIH OlkSxlhyEealGiEC0pVIIo LRIgD6EfVAPlW49aEIKedS 1iZXIgbnVtYmVyIGFuZCAi bRl6thQsIAEctYAqLrXsrg CbFMSkZIX7CAEnLUS1YVFl MKJahAEuD4dsLZrciBIqn9 YgdGFuLXBpbmsgdmFsdnVs PUCstZych3FdCSjibQhnGI F9MRHpHDZoX8Luz5JeeAA2 quBsfKMqw9GnhHIdT9vbzo XxYUQ0EI4wzK7vTH6nESvr IHNwZWNpbWVuIGlzIHNlcm hpvXk6CKUnI0Gqd91xPYU0 fhFrXBHpMHjkSjKnH5l7MG setOueobL8coP9JL6jEXLz ym8qTYH2pZIotHWhCANygv F7xKZkDNZxjHHgRqaqOMZe h57mKQ3mDIT5mdutLeY3yQ H1ntBbQeFfQ08xXWLodEKo s3DusKS2pJPkQRUbB9Msp7 9hJUBoUZBbvBNwoBZ0DBRo aI5nC8Pdj3N9xNDzCAJoNg 5qvX31xE3vPLPpoEVkFPQf Y1VjR6qheQTwcMrmbl1tJO bOH2O4VWJyol2= MICROSCOPIC DESCRIPTION i2trgFYwUQHyuRQ7XxHmBI (test code = 3371) Tfg0hur9RbjFYkzJGrQUso dOTyxwGhhh20ePL5cG76DN 5mVUJvYsA3LBYeogI4Ujl6 YREtKSFsfDIiZ234g0het3 cxbuNxgWP9gUqiEJBcZQNv CAhgCCQnSrMdZZHoXa6rnU VkXHBhcn0= SPECIAL STUDIES (test y4onnTMsMSWnx5afSSAukV code = 3376) FuZzEwMzNcZnRuYmpcdWMx LAiwrdUaCYene1CkZ8FaRw AwMFxhbnNpXGRlZmxhbmcx QWFlEAW7jwTwRRKqUFoeGC EzYDexYl0ufFRlxYvyIwAh UQQqk3svlmAZealveIj1r6 wqYSDeAmK0bGCmNWwrN6ya vqPrkUQyL8MuxOCygNm6j0 bwMsTsMoM9rISkVOgcY9mm doFumHGbFGNjEJz0aO88RD JltL6gzLUbYUawfgSvArK6 VXrkFEErBhM0WYBieSQdFU OzY3sxXWCqHXuhZCPdIWbo uQLwAKU4rRhxj3B3jGPndD HkvQwfPfGsAkNwClBAc7Tw QTn7dQqqV2QtQJXaYbT8wP QgUGFyYWdyYXBoIEZvbnQ7 aJuybwCha86udTYlJNEkBT ZcInGerBuoPCApZNDGd0Bj tHvjEYV9uJt4fXatUjakAQ G4Lam3HQ2rya22vfm1mEfe TSWklssbDnL3QItuKBGeaq xkEKs1KNbkBLUgaUW5VROv dXIzI5HoLMJwGI8fily8OT C9ZFrqWKXlSiV2TKRqpUUg RMNltGamHXful903RBP1As UlCG3kM4Mur7X5lQ8gxXTx GLCtfRUcFqHtBABdqv9mqJ XzQVoaz7TbDMR1xmI3eOFz fLAiXHPbCK74Vfeqn3EiUy wrc4EuD86nmWJ4CRibd4fa BL0fXxA1vhRaHXvgk2rjgX 4wCzA0VNkdHR4nCI4gNFCi xK8vuhdpYPTdSmSqsimtTY YmrFeabbJhQc0ewLxuRHW0 AJojB4tdxZ9wQhL7NCmzE9 nidD1wEPw3IQdyoZC5VDDd qI0xKN4isyfxg1goIAvqFK qyMTJepgC5exZ5GDBmjWMk J1SogR8yOGDsRZ1jwsnqy0 tkMGP3IHsjIAMlGBH2JqBu UZJwt0Zjtpq0GnHvh0KtiN YeLTknP01sd500OJHjghZd Z2ywpGCzordevKTtsbhrVK rqjeF0BPMnOUKpTPdiUKAs XGZzMjJcbGFuZzEwMzNcaG ljaFxmMVxkYmNoXGYxXGxv I6qeRoHaD6TwEUIwIxRyYK rdOIgpjYFzcLOzfZD0nO2e NH1zJTMtkHPrX0BkYOKyrg DtgPHnYQE8hGVauNIsDB8e IHixsQBpm9yrq2MjB2mdsG iepPG4MV2aGQTgKXZgQQaf z5RwjB0uMkcjqNLfvwjrJU xmczIyXGxhbmcxMDMzXGhp V2wjDjFsUAIwtGfrZXpah9 NoXGYxXGNmMlxmczIyXGx0 cmNoXHBhclxwYXJccGxhaW 5jDpMkAeEyYyzyWV4hHPGi K3nqmHXgTAHjQDLlF1tyYp XhhO9thXxvKDrtEkYwUdSl RgWOq428sd9mHVMkjSWdhd DEiLHmoO7rBIntGGwqKJeu xWKeVGuwq1rsTNShc0s8bF NxDFOethFnk6cxXYhycyKj SKRfeMWovXKtJXPpk47cZQ atgMzqgEtrLVPyj6QmdHqd o8BcQnGzVQnng5HoX36pjV JvbCBzbGlkZXMgcnVuIGFs w31oi0kiPCGnEiL2oTKecN R3eSJgkYMva8RbdGcaATTy s0gfQSCjyr0gtcihpJOrf2 CjjG7zslajANdeqMTtccIj VYQfb6q7mVWaRIBmDPOtKX bwsMe2UKHei005wn1hkdU0 rJRyUZM1FUbaJSQnOSRots UgZXZhbHVhdGVkXHBsYWlu XGYxXGZzMjJcbGFuZzEwMz NcaGljaFxmMVxkYmNoXGYx APmrY0fpBjAjE6VgPSCwWr TnmCMzM6txbOUxHJVzIEiq XGYxXGZzMjJcbGFuZzEwMz NcaGljaFxmMVxkYmNoXGYx PLcmT1xiHwAvE4FaDAWaAh IgIFxwbGFpblxmMVxmczIy WEuazulsAJNuOFsmX3gcGr BfLQVpaDcfSIgux9LtESMc MQGuXehfkqXfMCp0hoGlQK BhclxwbGFpblxmMVxmczIy QWffkirxPKCqJEeeB6pdHn UdMWAppOvaGVqzk9CrSFHe XGNmMlxmczIyIEltbXVub2 dgp9ZxJ1apjWkbsCE4HDZv D6ersXMrjAP2OTY9vV3xFF cvhfUrCNJtl0XlNDGcWXHu CsQ4oF6jHOI8LdCUeLkbKW BsYWluXGYxXGZzMjJcbGFu ZzEwMzNcaGljaFxmMVxkYm NvHVYcGJqsF7oyYySgF9Dd YSYlVjKkfIrmZGgbFPh3Yl xwbGFpblxmMVxmczIyXGxh suykEAUdSZadV4goFrUiUK RwrBzcSZnxp7AjWLKeUHSr MlxmczIyIHMgTWVkaWNhbC VPZB37LZPkXSJboApfnP6i uEZFGEAjmnU0t2L9MQdxET LuEVt1XKsjazOyBJZoxI4l JENsNA5iEHi6ehFwBQDnw4 TfJB6uTIOmjUEnSVA1XBAz f6ByY8Fgl8XxRLBoPSEhdc 9uldZrAtQYcXTgKCZrrb62 EFYqYH8mM1rjELHkUQXzlo PaxBAzd2HqOBGxdYD2bFOi XM4GTaXUr91uNDOsECKSpg HkUCKjrErvcFM9xlV4tZ7i LiBUaGUgRkRBIGhhcyBkZX Kona3fynBbJXXdQVUvz8Jf uSZigOCxooRaP0Rpl8KbTW Ppnd09CIeytBGhjt87OA8l L9Tch0VgzH7xTKrnKZKvd8 ZfsKAupSQjDPSpk3FiE5dw kzvoVSabxQVgaZ2iYCWdLU v1PRKam3BgXOJjk9WsJpXt cdGaLECuIBDjDJAukC05HC K4fJzhkSaekfYcLO5tGSJq xrOpXYRpDOHknW3vVTttld QvTTEateH9z6U1EZyuYRXg pwFoGftnYBF2qjKkawX6pP ToN8xeyblhTDtlGEIxe1Fe iA3uyDPLoWYer9QfvBHzaZ MRiBSuOV3lioJhGT7iOBZ6 ODggKENMSUEtODgpIGFzIH J6QFetPleiYGL2coKjFNNh c4YuFTimU9etS28nmYxtaJ h7qVHvoHaajFDcqBZwPLJb hwM2s3K9MRYbx1ZcdnhyCM BsYWluXGYyXGZzMjJcbGFu ZzEwMzNcaGljaFxmMlxkYm YeYOOhCVdlB4slWxCbMpRd ExibEWT5kH== [facility] [id number] 16:48:00 Test Item Value Reference Range Interpretation Comments Case Report (test code Surgical Pathology = 104) Report Case: [id number] Authorizing Provider: Tereza Galvez, Collected: 01/11/2021 03:53 PM Ordering Location: [address] Received: 01/12/2021 08:17 AM Pathologist: Fredi Hermosillo MD Specimen: Mitral Valve, Mitral Valve (send for C/S first) DIAGNOSIS (test code = a4lfcWZaBUGet8hiRGGfvM 3220) FuZzEwMzNcZnRuYmpcdWMx IHtccnRmMVxlcGljOTIwMl cabwXpRURonIAhM1Rugwsk ELreWD9rZT7syVnxoERvuN OpBLLjQpDgj0gji424wZPf p8cuHPKZanoyhCh1xLxmB3 5ne8Y3NpeiM89xnJExWCbt bGFpblxmczIwIEhFQVJULC BNSVRSQUwgVkFMVkUsIFZB PEKATSLGIM3CIUwlpLGvXE XSWoGCIh5HMNQKWCAASPJY HBtKPOIPCL5EXUYZLrXOYI 0BRpkvXXXPJS1PItTZKVGj EqZPFZLLPVMJVOJSM3DOYH BhciBMRUFGTEVUUyBXSVRI VFBVL0XTXA7AXXJWHWOXSO ARBGSPMzjBEVWPYEUAL7YI SUXMI3PVIaZoeTBhiLqxfd VtJQphw3KaOJirJGAxHI4u iJtyZDKgHN3kIJBrX0akoZ 7bmuo6WnZfULFpPbM6EJPt mrP1Cyr6DNBhNTjdv6crz0 NsCVVgUMu7nImcMrObALSw f1gjebTmTfHvOMDkVJGaMU InbAFxF811p2hyf6gaeeQx iGB0LRUhKMO1IDeyylBnbu L3WCdtjKBfDoZ0BVewgdSs VYsnfcFqrpNjYlu2UYDfJ2 48DFW3tXwwt2guCPE4URAv MAElQwLuMg4jgINeO034EY WnIKREGNTsdDe0CYDdxkVy gqPsrIHIw077I370k6npWJ VvvhNymOhUjouwb0wkZ135 XHBhcGVydzEyMjQwXHBhcG PduVD0DDRvQC7fkmvpKNni BRpuENOpduZ0OYGpmCRjZ2 HqRPYpZP3kucvxRBN9DNdi UGYmJUP6SzKtRQIso5Aase t0RkFdpj6guc06ZCP6c7Ti yGulICZ1WDY4KpWlNg1swO OjRFWaIJ8mDaGafXXjUXMq kb79rHpxYTueZRD0TMClfu Vue8Qws1loJsWfyuYtL2fq N3KfEHKjHTUtEQCmUaMhrd Tvt5Rrd3AvaHEmhAm3c1pp KHLrGDJflXfzo8wxBOC1OI HxfJOqK1gtlD8aHKCsAO7u cjafn4viNHpzVHsyUTXmiV F8qbV0OJXleFYaO5MlbV3m ELFlDJxfWJJlmmn2UxKtDy 9vdGVyeTcyMFxzYmtwYWdl XHBnbmNvbnRccGduZGVjXH BsYWluXHBsYWluXGYwXGZz MjRccWxcbGFuZzEwMzNcaG ljaFxmMVxkYmNoXGYxXGxv V2myLfTuLlXjNjp9BQGhxQ OpARVxBgn1YCJhvEJgFVIS zTuflM8uNPPdqKodtJ6wnX R3UJUnzfPokGZVkX8mRLCE qU3eHwO0KqJrLjM8TQu3MV FccGFyfX0= COMMENT (test code = v0ppsGAcOTRjySK2VkJlAW 0718) Tkx8kjx8CasHXcgKRgGKxj gPCarqRwkf70aIL8vU53WG 6lHQRsHpS4SMBcmhB2Fdd1 ILEeSTTxoDQvC684z6nhe7 ddwvUbpKN4dZpoUKIbNNEt YWluXGZzMjAgVGhlIGJhY3 ZqwhtvWRZxquRaoR9aJTBl lyJ3eCNetqEdTJIbpRvfhi LyjlPcSMSpFO5eaiS5OVKa FB7xRTXrtmjtXwx3KET5PZ qrfA1fXHfmuCwbiSojp1Qn NDusPY5mEQQ9MGiihvGwpi XdV02BOKR2DLknvzrnLpZ5 XIIiRIXfajIzz57kusYnxB Lxm8LzjH9uk1f1SEluNVEl MSCte8AhZ44qB8stDSctUO J9 CPT Code(s) (test code g4pbgZXqROQabAI1CqBtHJ = 3357) Lgc3geg0AdvDGroUPjAXou hFNeexHzsc64uMC9gV08TE 6eYUQxUhW7YBIleeW0Guk5 IVWiWJSygWYkJ806f6gbb5 cmqxCyiDN5dCubQNBhJRDv RQtgJVJcDuXjGDnnSZT3BW f2SzWgXLszQ5zeYLG7 CLINICAL HISTORY (test i3prdWXiVJIxtLK6CtCwEF code = 3356) Haq5rfo3UulJGsqSXzASqk cHMhrbPgwu82pDQ8fJ97KF 6aKCAkDaR1VVFgteQ9Pkp6 ESXnBZAkuVObQ739x3jmp6 btsbPsnRB3fFhaNXDfUEAr SIpsEFKlLgFyPZ7au1Ihty GqcEbhNT8mWV4lbEMfyDY1 MPa8WJAgvAIscK== SPECIMEN SOURCE (test y2yemTRbQGIoqWA6OuInTA code = 3377) Rhp3xpn3PpfSKgkQOnVZdf kYGtclRhzm68eBD4uY39OY 0yJLRgVmV9CBBejtE2Pvq3 MNOwNWRrlHUeU099f5efl8 viubOogJY4fJgtEWBvJOWy LRjqVZGqGaNbBDh2njOaGT ZhbHZlIFxwYXJ9 GROSS DESCRIPTION (test b5covFPuJRSrsZAoZjRtZB code = 3366) NlJEQcl5seDMJbpLKcWlTy MzNcZnRuYmpcdWMxXGRlZm Hua8jrz242lXDiz5esJCWV dzdatSk5i7wyPOCdUdZ8mS IzZUybG0ecsoRtyJDcAZEt ZJg7pZ72WJRenM9mfCXlDM niigYfFyT9GFlcBHSqIgG8 RRBhoWDcHRXiT9lbXPOiXU sqTMOdMGcotPXsMHK8yRaf q1O4hIApvGWbcHcsGjGkDi CuUYZZu9ChADe0hHbnF0Kv LEGkDvC2wCRbUNJtEGwnEV GcCUPrwtZ6cX46BUhbmgM0 lILcv2Evu55de088bB5bbG BtYHM5VNZnOVVqoQEfZJTn VXJ4TPPhkUYgF0g6QiBlfS RaO7U4RrGdgJJtC7V3ImXq mXSwF0U5DcYcjEGhTANjdR ZdEc6giVJwsUQiaz4nqu51 MKU0n0DlmJnxPCV3ITT2Un SdUj5dbFRiEMNsTGUmpTDs CWMvWC8biBYdDQPhmN5tka xjXHBnYnJkcmhlYWRccGdi gbZfQk6emBkbXMD6RRkdE2 mjdI1vJyG2BWvuB6kpjU4w ETh1EKlyhKO3MMRlvE9bTH 6pmkptt7glOfJbTT4ckrje c0epOyGcPS8kfkb4l5ctIp JjBL1enyeqy8ayUmRiCXcm GLMlfcjeILPmu4VvpibpYU Yxe6WvA7LmxZqcW97nfKko S11bNAJpfQnukB0zwWacjQ 5cZjBcZnMyNFxwYXJkXHBs YWluXGYxXGZzMjBcbGFuZz EwMzNcaGljaFxmMVxkYmNo HAIkPCifS7soXiRjReLvXO BSZWNlaXZlZCBmcmVzaCBs YWJlbGVkIHdpdGggdGhlIH GymAikxzLrweRtPT3cLNDn CISaA1McEDQnP83fVPDxnI 1iZXIgbnVtYmVyIGFuZCAi dNi9ttLuNVHmxUChElCwum FvAMEsYOO5UFXbGXE9IDGz UBEprQVwN6gkYPpofXRru9 YgdGFuLXBpbmsgdmFsdnVs VIZehTrgd7AmRMjvjLycTU A5HNRmTHJhB5Bkr0JcjLH2 ipNqyWMeq7HfdNQpN5xidl SxXVF9OA8ryK6hNF1sAJqf IHNwZWNpbWVuIGlzIHNlcm qevRj6ANOmQ7Dhw33kMNP1 wcBfRGRoYFddXeZhR3b5KY vnzGnidlC0obV5OF3aLGWm jx1cBRP9sLQmgEOtZYOmuq Z7zQUqQCEqmJQvDbomSWYq a95mSG2iZLV6wauhQwD9pQ T7dyBeUyLaX01rUKDzpVHp u7AxbZI3vSWnSIMxJ7Alu3 6wUIOsJGGpdLWfdNS9MHOo tC8oA3Ugt9P3nYIqALBjFy 7bbK89gF0dHGEdlQCeYIGm P6NdI6wbaEGcsSqrkv5xXR iJD3C7QSFgcf2= MICROSCOPIC DESCRIPTION e3yupVVaLNDdoIQ3AhLmGU (test code = 3371) Xxm3jmh4XjyHUqvTWjGQjn vOCtnqKbij99xTF4iT29HX 8vUWUxVaR9CYHyckQ9Kwi6 XWMfTBDfyNPkW772q2qpz5 qskzEiuWC6cNjoWUUrFKQl XGeoGBCdIfUrXZAhIa9dtV VkXHBhcn0= SPECIAL STUDIES (test y6oqtHTgHRXgh4kkSRKtiE code = 3376) FuZzEwMzNcZnRuYmpcdWMx NZrgfzKlRLzpf3JwP0GpOz AwMFxhbnNpXGRlZmxhbmcx WKVoEAI5vkMvTWHyAFepBD BxOVmrZs3odOOblKdbUcZm NBIgu9hephMWbumrxHr8k6 bjDQWlWuR9aMYiNFxpX6gt slKbmOXeG0HevZNnoOv8c6 ihAxGlAhO6gGIzZXwpP2ht slFlkCZmHPLoKEz7eP31RQ MsrM6zjWLmFVuqmwOrFvL6 PRziVNReYxE0VRAnlORsXP UyE1ulSOAmSTdjWAWhNWdj zNNzBXT1mCipq8A4xKVlbK MfeRlxZwPeTfOlTzCBf6Qa IJi2gLrbY4DkBXOjNqU6vA QgUGFyYWdyYXBoIEZvbnQ7 mInitgOif33qlIZkCOTeBR WnXxJseOamHSHaAFZKp7On yVmeVOT8jGa8sSptQhinAN K0Olh1WT4eqy09ewh5sYac SIZhfklzXwW0ERvnYBZnad lbBJw5ZCjfIZBcfLN2SDVn vCLpE3AtAOJrFA8lkqh8UE G3RVlkDZQaPmF5VSGsbBJh BDCxxTsrYKvwz110JBZ7Ya QpCS6eQ4Tqi8N1aN3nsNKa OQOtvYRtTrIgCCIhtx0psL WwSZbob7SoETQ2btS2dOPg eWLiOEEgHO41Zxrnp9BlZk xng8BvJ40zfVM0BZeri4wa TU9iLxB6xnFjPCqwh3zosA 1hMoD1TQpbDX0fGI8mCSSy vK5hghskQVZuQsGvviuxAL TgcCgujaPvVh2owPytLIA7 YHkmV3ikwC6rKkN7CPpwE2 zweP3rOYd4DWaauUC6SNYu wV2jMD4kynxod6jcAHuiOD gjXLBtfjG3dmZ0YRUhmQYs O8XebL6lVIXmBH9oxpcht8 rbIZW8NSwcNFIpZPO4UjIn ATEuc6Xwqpr6BrTgc4WygR JoEBkyL86fq290IYByhkAk C8vceNTbwavaoZJvnlurWL pcpcL3ZTRqCHWgPHmpGDZb XGZzMjJcbGFuZzEwMzNcaG ljaFxmMVxkYmNoXGYxXGxv H9stLiWnD3EeWBYbZrGzOE zkFLhzdRByyCIdeXI5wX9x KQ3oUOKwqZKkL3AeOJKvvn RcxLSzSFC3sQCrjBNhMJ9m UBnfiSWib5hpb7FzD4kywI nwxOH6TS8rEPQkHZKuMWmn b9NncE3fIfoxmDDjwaoyAU xmczIyXGxhbmcxMDMzXGhp D0vfHbLuCNBloUqdQBaej4 NoXGYxXGNmMlxmczIyXGx0 cmNoXHBhclxwYXJccGxhaW 8lLtLeMmRdYytsFK8dJUBg M1kecEKlJXBlIUHcX9dyEl RvhS9wgPayCElpDcRyBmQk GjTVd765yt3nQQQaqIFrud XZyQDnyA9wAQhzKElpHYpa cSQmZInnf0vtLTOtr6c7oX MqURYskuXaf5qqRUesrsCu JRCsxKSdwHZsOLMaq17jJS nzcCdcsGudQPYdm8LtvJax i5KfQoZdZDcce6LzG58wsV JvbCBzbGlkZXMgcnVuIGFs r20ow7scBSLdJqL4aUCecH D3bEAifLMqn4NugQxdPPTh l4yfCZDmbh5zskcwkBTrd8 FczJ9ikympBUevzSAqhoUr WVUpn4v8hRInJUSqTOEeQK ysbZw4LESoh553hr2eiqL5 xGTgSAH0NJdmDNXhKNLtrv UgZXZhbHVhdGVkXHBsYWlu XGYxXGZzMjJc[facility] at [facility] VegasZzEwMz NcaGljaFxmMVxkYmNoXGYx AVygA1qoCuVfX1PyIKIjNe JugHKwB1gvaJEkATEiZIzo XGYxXGZzMjJcbGFuZzEwMz NcaGljaFxmMVxkYmNoXGYx SQurN5kdRjKqM9GjRCEnIc IgIFxwbGFpblxmMVxmczIy VGnoppenZXPzEVuzV4vmYd JeESOzbFbqINmgv8HeTRJd WCUmNhhhvkPpQQd8otThHZ BhclxwbGFpblxmMVxmczIy KSrfcnkpORCaISkoL4wkEv GlEHFwvYopAOmxc3BqHYZb XGNmMlxmczIyIEltbXVub2 ygj6HwG0wouRyryIT0RZZs H3pdgOVtzDN1DYZ7gW7hZM vtozRcQYEnm9UwYXDnJSQf SrZ7gY8fKVS3UlNRuOqiSG BsYWluXGYxXGZzMjJcbGFu ZzEwMzNcaGljaFxmMVxkYm IgXQGqVXjcD0ajUqRtP2Ny HCAcFqPvyDglBXwtKVl9Ml xwbGFpblxmMVxmczIyXGxh feouZFXrBWowO1jwFpVpUR AugZofXIkxb1ZyUICsNGMb MlxmczIyIHMgTWVkaWNhbC DFLB11LOScCAPrwZsdyQ9m aILIEVHndvC9h0G9TYomUW FtKTo5KKmbwnHwRTSvrT3x UCNfKI0sYPm3hdUyGJMkj3 KiJJ8lDWNwlMNfDME9NMRj m6LcX0Uru4WqJEJzGZKksq 8zwoVhDwKUvYJrLETgin20 AOVqNY9yO2ghQFTjNKMmlp XwnNLcu1UwWFAzzOW9vUSa FZ0CQbRPg86ySQRnNMYDee SvIAFpgDdozEV2eyT4oU4i LiBUaGUgRkRBIGhhcyBkZX Jllj9vqsBkXYTyFCDxn7Jv oQFduLBfcrXxT1Ahq0OzXI Bouv99QQnzjFCaqm48QY6z K5Dwy8YhtV3zEJmgDSOuz1 AonVTutIGhHZPth0VtT2bx hdlkKNxcqRYhgB1vTUAsAR j7KPWpm5HhRCBir6UeRgVz irCqLEJkQBAkMUCrvR37KX T8gZecrHwqivVkTZ5wKERr ayFpMBVlNCJcaF5uCLcxhh TgAWWqvjE0s0V2OTtcETIs nwLiUgbjQSY6zcTkfzG1iN IvK2zrfkvbRDwbYIGqh4Tt lG3hhAONgSIwg8YjaKBktN WRpAVhUS6apvKoFZ1rJMK5 ODggKENMSUEtODgpIGFzIH B8LWsoSstzCTD6tdHqMYNv w3LnOUebW5hfK55iqBfrcZ u2qIFvpZojxJMrlQLxPSYa ahW7t3M5SHKwq9FyobngTX BsYWluXGYyXGZzMjJcbGFu ZzEwMzNcaGljaFxmMlxkYm YtPGGqWQexE9lfJnRoOcTd WsruJYP8sM== [facility] [id number] 16:48:00Surgical Pathology Report Case: [id number] Authorizing Provider: eTreza Galvez, Collected:01/11/2021 03:53 PM Ordering Location: [facility] 8B Received: 01/12/2021 08:17 AM Pathologist: Fredi Hermosillo MD Specimen: Mitral Valve, Mitral Valve (send for C/S first) HEART, MITRAL VALVE, VALVULECTOMY:FIBRINOPURULENT VEGETATION CONTAINING 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 [id number]; [id number] x 3Endocarditis of mitral valve Mitral valve Received fresh labeled with the patient's name, medical record number number and "mitral valve" is a 4.4 x 1.9 x 0.8 cm aggregate of everett-pink valvular tissue with attached grossly unremarkable chordae tendinea. The specimen is se rially sectioned to reveal bright-yellow to everett, firm, cut surfaces with calcifications measuring upto 0.4 cm. Business Leader sections are submitted in cassette A1 following brief decalcification. MJP/ewPerformedThe interpretation of this case included the use of immunohistochemistry or special stains.Control Slides Examined: In-house known positive controls were evaluated along with the test tissue. These control slides run alongside of the patients sample show appropriate staining. Internal positive and negative controls when available are evaluated Immunohistochemistry technical testing was performed at [facility], Pathology Laboratory where it was developed and its performance characteristics were determined. It has not been cleared or approved by the U.S. Food and DrugAdministration. The FDA has determined that such clearance or approval is not necessary. The test isused for clinical purposes. It should not be regarded as investigational or for research. This laboratory is certified under the Clinical Laboratory Improvement Amendments of 1988 (CLIA-88) as qualified to perform high complexity clinical laboratory testing.FIBRINOGEN 2021-01-17 15:29:00 Test Item Value Reference Range Interpretation Comments FIBRINOGEN LEVEL (TAMARA) (test 273 mg/dl 225-434 code = 658) [id number] 15:29:00 Test Item Value Reference Range Interpretation Comments PARTIAL THROMBOPLASTIN TIME 41.3 seconds 22.5-36.0 H (BEAKER) (test code = 760) PROTHROMBIN TIME/[id number] 15:28:00 Test Item Value Reference Range Interpretation Comments PROTIME (BEAKER) 25.4 seconds 11.9-14.2 H (test code = 759) INR (BEAKER) (test 2.34 See_Comment [Automat ed message] code = 370) The system [employer] generated this result transmitted ref erence range: <=5.90. The reference range was not used to int erpret this result as normal/abnormal . RECOMMENDED COUMADIN/WARFARIN INR THERAPY RANGESSTANDARD DOSE: 2.0 - 3.0 Includes: PROPHYLAXIS for venous thrombosis, systemic embolization; TREATMENT for venous thrombosis and/or pulmonary embolus.HIGH RISK: Target INR is 2.5-3.5 for patients with mechanical heart valves.PLATELET [id number] 15:21:00 Test Item Value Reference Range Interpretation Comments PLATELET COUNT (BEAKER) (test 224 K/CU MM 150-450 code = 756) Sales Enablement Consultant ID - [id number] AND [id number] 14:15:00 Test Item Value Reference Range Interpretation Comments HEMOGLOBIN (BEAKER) (test code = 7.2 GM/DL 13.7-17.5 L 410) HEMATOCRIT (BEAKER) (test code = 22.4 % 40.1-51.0 L 411) Sales Enablement Consultant ID - [id number] 13:21:00 Test Item Value Reference Range Interpretation Comments POTASSIUM (BEAKER) 4.0 meq/L 3.5-5.1 Specimen slightly (test code = 379) hemolyzed POCT-GLUCOSE [id number] 12:43:00 Test Item Value Reference Range Interpretation Comments POC-GLUCOSE METER 84 mg/dL 70-110 : TESTED A T [facility] 6720 (BEAKER) (test code = [place], 1538) [id number]: Sales Enablement Consultant/Techni won ID = [id number] for RONAL BROCK RAD, ABDOMEN/KUB, 1 VIEW [id number] 12:27:00Reason for exam:->DHT placementShould this be performed at the bedside?->Yes [facility] 1975 Sex: MFINAL REPORT RAD, ABDOMEN/KUB, 1 VIEW AP CLINICAL INDICATION: DHT placement COMPARISON: None TECHNIQUE: Two frontal of the abdomen. IMPRESSION: The bowel gas pattern is nonspecific, butnonobstructive. A feeding tube is not visible in the provided images and may be coiled in the hypopharynx. The regional skeleton is intact. Signed: JR Tate Robert MDReport Verified Date/Time:01/17/2021 12:27:08 Reading Location: [facility] Radiology Reading Room [id number] 11:30:00 Test Item Value Reference Range Interpretation Comments MAGNESIUM (BEAKER) 2.0 mg/dL 1.6-2.6 Specimen slightly (test code = 627) hemolyzed [id number] 11:25:00 Test Item Value Reference Range Interpretation Comments POTASSIUM (BEAKER) 4.1 meq/L 3.5-5.1 Specimen slightly (test code = 379) hemolyzed [id number] 11:25:00 Test Item Value Reference Range Interpretation Comments PHOSPHORUS (BEAKER) 6.1 mg/dL 2.3-4.7 H Specimen slightly (test code = 604) hemolyzed LACTIC ACID, [id number] 09:47:00 Test Item Value Reference Range Interpretation Comments LACTATE BLOOD ARTERIAL (2) 1.6 mmol/L 0.5-2.2 (BEAKER) (test code = 2874) RAD, CHEST, 1 VIEW, NON [id number] 09:17:00Reason for exam:->chest tubes, s/p cardiac surgeryShould this be performed at the bedside?->Yes [facility] : 1975 [...] MDReport Verified Date/Time: 01/17/2021 09:17:24 Reading Location: [facility] Radiology Reading Room HEPATIC FUNCTION [id number] 09:03:00 Test Item Value Reference Range Interpretation [...] (test code = 347) hemolyzed COMPREHENSIVE METABOLIC [id number] 08:52:00 Test Item Value Reference Range Interpretation [...] S NOT APPLICABLE FOR DIALYSIS PATIEN TS. [id number] 08:45:00 Test Item Value Reference Range Interpretation Comments MAGNESIUM (BEAKER) 2.1 mg/dL 1.6-2.6 Specimen slightly (test code = 627) hemolyzed HEMOGLOBIN AND [id number] 08:12:00 Test Item Value Reference Range Interpretation Comments HEMOGLOBIN (BEAKER) (test code = 7.6 GM/DL 13.7-17.5 L 410) HEMATOCRIT (BEAKER) (test code = 23.3 % 40.1-51.0 L 411) Sales Enablement Consultant ID - [id number], [id number] 08:04:00 Test Item Value Reference Range Interpretation Comments PH ARTERIAL (BEAKER) (test code = 383) 7.49 7.35-7.45 H CBC W/PLT COUNT & AUTO [id number] 06:06:00 Test Item Value Reference Range Interpretation [...] CONCENTRATION Adequate (CELLAVISION)(BEAKER) (test code = 3438) Sales Enablement Consultant ID - [id number] comments: Slide comments:[id number] 05:18:00 Test Item Value Reference Range Interpretation Comments PARTIAL THROMBOPLASTIN TIME 44.6 seconds 22.5-36.0 H (BEAKER) (test code = 760) PROTHROMBIN [id number] 05:17:00 Test Item Value Reference Range Interpretation Comments PROTIME (BEAKER) 30.0 seconds 11.9-14.2 H (test code = 759) INR (BEAKER) (test 2.89 See_Comment [Automat ed message] code = 370) The system Zoondy generated this result transmitted ref erence range: <=5.90. The reference range was not used to int erpret this result as normal/abnormal . RECOMMENDED COUMADIN/WARFARIN INR THERAPY RANGESSTANDARD DOSE: 2.0 - 3.0 Includes: PROPHYLAXIS for venous thrombosis, systemic embolization; TREATMENT for venous thrombosis and/or pulmonary embolus.HIGH RISK: Target INR is 2.5-3.5 for patients with mechanical heart valves.BLOOD GAS, [id number] 04:54:00 Test Item Value Reference Range Interpretation [...] (BEAKER) (test code = 1819) 80.0 POCT-GLUCOSE [id number] 03:44:00 Test Item Value Reference Range Interpretation Comments POC-GLUCOSE METER 81 mg/dL 70-110 : TESTED A T [facility] 6720 (BEAKER) (test code = [place], 1538) [id number]: Sales Enablement Consultant/Techni won ID = [id number] for MESERET ETT, SEPTEMBER [id number] 02:05:00 Test Item Value Reference Range Interpretation Comments PHOSPHORUS (BEAKER) 10.0 mg/dL 2.3-4.7 HH Specimen slightly (test code = 604) hemolyzed [id number] 01:53:00 Test Item Value Reference Range Interpretation Comments MAGNESIUM (BEAKER) 2.4 mg/dL 1.6-2.6 Specimen slightly (test code = 627) hemolyzed [id number] 01:53:00 Test Item Value Reference Range Interpretation Comments POTASSIUM (BEAKER) 4.3 meq/L 3.5-5.1 Specimen slightly (test code = 379) hemolyzed [id number] 01:40:00 Test Item Value Reference Range Interpretation Comments POTASSIUM (BEAKER) 4.3 meq/L 3.5-5.1 Specimen slightly (test code = 379) hemolyzed LACTIC ACID, [id number] 01:14:00 Test Item Value Reference Range Interpretation Comments LACTATE BLOOD 6.4 mmol/L 0.5-2.2 HH Specimen sligh tly ARTERIAL (2) (BEAKER) hemoly zed (test code = 2874) Sales Enablement Consultant ID - [id number] ACID, [id number] 00:55:00 Test Item Value Reference Range Interpretation Comments LACTATE BLOOD 2.6 mmol/L 0.5-2.2 H Specimen sligh tly ARTERIAL (2) (BEAKER) hemoly zed (test code = 2874) [id number] 23:45:00 Test Item Value Reference Range Interpretation Comments FIBRINOGEN LEVEL (BEAKER) (test 261 mg/dl 225-434 code = 658) [id number] 23:45:00 Test Item Value Reference Range Interpretation Comments PARTIAL THROMBOPLASTIN TIME 49.5 seconds 22.5-36.0 H (BEAKER) (test code = 760) PROTHROMBIN [id number] 23:44:00 Test Item Value Reference Range Interpretation Comments PROTIME (BEAKER) 31.2 seconds 11.9-14.2 H (test code = 759) INR (BEAKER) (test 3.04 See_Comment [Automat ed message] code = 370) The system Zoondy generated this result transmitted ref erence range: <=5.90. The reference range was not used to int erpret this result as normal/abnormal . RECOMMENDED COUMADIN/WARFARIN INR THERAPY RANGESSTANDARD DOSE: 2.0 - 3.0 Includes: PROPHYLAXIS for venous thrombosis, systemic embolization; TREATMENT for venous thrombosis and/or pulmonary embolus.HIGH RISK: Target INR is 2.5-3.5 for patients with mechanical heart valves.POCT-GLUCOSE [id number] 22:21:00 Test Item Value Reference Range Interpretation Comments POC-GLUCOSE METER 96 mg/dL 70-110 : TESTED A T [facility] 6720 (BEAKER) (test code = [place], 1538) [id number]: Sales Enablement Consultant/Techni won ID = [id number] for MESERET ETT, SEPTEMBER [id number] 21:19:00 Test Item Value Reference Range Interpretation [...] for patients with mechanical heart valves.HEMOGLOBIN AND [id number] 20:53:00 Test Item Value Reference Range Interpretation Comments HEMOGLOBIN (BEAKER) (test code = 7.1 GM/DL 13.7-17.5 L 410) HEMATOCRIT (BEAKER) (test code = 22.1 % 40.1-51.0 L 411) Sales Enablement Consultant ID - [id number], [id number] 20:47:00 Test Item Value Reference Range Interpretation Comments PH ARTERIAL (BEAKER) (test code = 383) 7.45 7.35-7.45 BLOOD GAS, [id number] 17:08:00 Test Item Value Reference Range Interpretation [...] 2D Echo W/Doppler(CW/PW/Color)2021-01-16 16:58:48Ejection FractionSLEH ECHO HEARTLAB MKCKSOHAON CPACSInterface, External Ris In - 01/16/2021 4:59 PM CD TTransthoracic Echocardiography Report (TTE) Demographics Patient Name CROW KAUR Date of Study 01/16/2021 SR. 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 Severeconcentric LV hypertrophy. All of the LV segments contract normally . Estimated LVEF by qualitative assessment is increased (>60%) . Degree of diastolic dysfunction (LAP assessment) is inconclusive due to prosthetic MV . A mechanical MV prosthesis is visualized with [...] hypertrophy. All of the LV segments contract normally. Global LV systolic function hyperdynamic . Estimated LVEF by qualitative assessment is increased (>60%) . Degree of diastolic dysfunction (LAP assessment) is inconclusive due to prosthetic MV . Left Atrium LA size is severely enlarged (>48 ml/m2) . Right Ventricle Normal right ventricle struct ure and function. Right Atrium Right atrium dilated. Aortic Valve Normal AoV structure. Mitral ValveA mechanical MV prosthesis is visualized with normal function by Doppler .Mean grad 4.02 mmHg. Tricuspid Valve Mild tricuspid regurgitation. Estimated peak systolic PA pressure is 45-50 mmHg (mild pulmonary hypertension) . Pulmonic Valve Normal PV structure and function by limited views and Doppler. Aorta Aortic root size (SInus of Valsalva diameter) is normal . Pericardium No evidence of pericardial effusion. IVC/SVC/PA/PV/Pleural The estimated RA pressure by IVC dynamics 16-20mmHg . [...] cm AV DVI: 0.75 LVOT Peak Velocity: 1.43m/s Peak Gradient: 8.17 mmHg Mean Velocity: 1.16 m/s Mean Gradient: 5.77 mmHg LVOT Diameter: 1.95 cmLVOT VTI: 27.22 cm LVOT Area: 2.99 cm^2 [...] Study 01/16/2021 SR. 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 Severeconcentric LV hypertrophy. All of the LV segments contract normally . Estimated LVEF by qualitative assessment is increased (>60%) . Degree of diastolic dysfunction (LAP assessment) is inconclusive due to prosthetic MV . A mechanical MV prosthesis is visualized with [...] severely enlarged (>48 ml/m2) . Right Ventricle Normal right ventricle structure and function. Right Atrium Right atrium dilated. Aortic Valve Normal AoV structure. 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 Tricuspid Valve Mild tricuspid regurgitation. Estimated peak systolic PA pressure is 45-50 mmHg (mild pulmonary hypertension) . Pulmonic Valve Normal PV structure and function by limited views and Doppler. Aorta Aortic root size (SInus of Valsalva diameter) is normal . Pericardium No evidence of pericardial effusion. IVC/SVC/PA/PV/Pleural The estimated RA pressure by IVC dynamics 16-20mmHg . A left and right pleural effusion is noted. Chambers/Structures Left Atrium LA Volume: 121.99 ml LA Area: 33.63 cm^2 LA Vol. Index: 58 ml/m^2 Left Ventricle LVIDd: 4.65 cm LVEDV:99.85 ml LV Septum Diastolic: 1.9 cmLV PW Diastolic: 1.95 cm LVEDV Suresh's:100.61 ml LVESV Suresh's:29.6 ml LVEF Suresh's: 70.6 % LVE DVI: 48 ml/m^2 LVESVI: 14 ml/m^2 LVOT Diameter: 1.95 cm Right Ventricle RVOT VTI: 18.03 cm Aorta Ascending Aorta: 2.91 cm Doppler/Quantitative Measurements Mitral Valve MV Peak E-Wave: 1.4 m/s MV PeakA-Wave: 0.52 m/s E/A Ratio: 2.69 Mean Velocity: [...] Mean Gradient: 5.77 mmHg LVOT Diameter: 1.95 c m LVOT VTI: 27.22 cm LVOT Area: 2.99 cm^2 LVOT SV:81.25 ml LVOT CO: 5.85 l/min LVOT CI: 2.8 l/min/m^2 Tricuspid Valve TR Velocity: 2.61 m/s TR Gradient: 27.15 mmHgMission Bay campus2D Echo W/Doppler(CW/PW/Color)2021-01-16 16:58:48 Ejection FractionSLEH ECHO HEARTLAB [facility] CPACSInterface, External Ris In - 01/16/2021 4:59 PM CDTTransthoracic Echocardiography Report (TTE) Demographics Patient Name CROW KAUR Date of Study 01/16/2021 SR. 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 Severeconcentric LV hypertrophy. All of the LV segments contract normally . Estimated LVEF by qualitative assessment is increased (>60%) . Degree of diastolic dysfunction (LAP assessment) is inconclusive due to prosthetic MV . A mechanical MV prosthesis is visualized with [...] hypertrophy. All of the LV segments contract normally. Global LV systolic function hyperdynamic . Estimated LVEF by qualitative assessment is increased (>60%) . Degree of diastolic dysfunction (LAP assessment) is inconclusive due to prosthetic MV . Left Atrium LA size is severely enlarged (>48 ml/m2) . Right Ventricle Normal right ventricle structure and function. Right Atrium Right atrium dilated. Aortic Valve Normal AoV structure. Mitral ValveA mechanical MV prosthesis is visualized with normal function by Doppler .Mean grad 4.02 mmHg. Tricuspid Valve Mild tricuspid regurgitation. Estimated peak systolic PA pressure is 45-50 mmHg (mild pulmonary hypertension) . Pulmonic Valve Normal PV structure and function by limited views and Doppler. Aorta Aortic root size (SInus of Valsalva diameter) is normal . Pericardium No evidence of pericardial effusion. IVC/SVC/PA/PV/Pleural The estimated RA pressure by IVC dynamics 16-20mmHg . A left and right pleural effusion is noted. Chambers/Structures Left Atrium LA Volume: 121.99 ml LA Area: 33.63 cm^2 LA Vol. Index: 58 ml/m^2 Left Ventricle LVIDd: 4.65 cm LVEDV:99.85 ml LV Septum Diastolic: 1.9 cm LV PW Diastolic: 1.95 cm LVEDV Suresh's:100.61 ml LVESV Suresh's:29.6 ml LVEF Suresh's: 70.6 % LV EDVI: 48 ml/m^2 LVESVI: 14 ml/m^2 LVOT Diameter: [...] m/s Mean Gradient: 5.77 mmHg LVOT Diameter: 1.95cm LVOT VTI: 27.22 cm LVOT Area: 2.99 cm^2 LVOT SV:81.25 ml LVOT CO: 5.85 l/min LVOT CI: 2.8 l/min/m^2 Tricuspid Valve TR Velocity: 2.61 m/s TR Gradient: 27.15 mmHgMission Bay campusRAD, CHEST, 1 VIEW, NON DEPT 2021-01-16 16:44:00Reason for exam:->s/p left pleural CTShould this be performed at the bedside?->Yes [facility] 1975 Sex: MFINAL REPORT RAD, CHEST, 1 VIEW, NON DEPT TECHNIQUE: Frontal view(s) of the chest. INDICATION: s/p left pleural CT. COMPARISON: Chest radiograph same day at 1543 hours FINDINGS/IMPRESSION: Lines/Tubes: New left-sided chest tube. Otherwise unchanged, including left transjugular catheterwith tip likely in the azygos vein. Lungs/pleura: Improved aeration of the left upper lung. Persistent hazy opacification throughout the aerated portions of the bilateral lungs and a dense retrocardiacopacity with air bronchograms. Improved left pleural effusion. No pneumothorax. Heart and Mediastinum: Unchanged. Soft Tissues and Bones: Unchanged. Signed: Delano Castro MDReport Verified Date/Time: 01/16/2021 16:44:51 Reading Location: [address] Transitional Reading Room RAD, CHEST, 1 VIEW, NON DEPT 2021-01-16 16:24:00Reason for exam:->confirm ET placement, and post ROSC evaluationShould this be performed at the bedside?->Yes [facility] 1975 Sex: MFINAL REPORT RAD, CHEST, 1 VIEW, NON DEPT TECHNIQUE: Frontal view(s) of the chest. INDICATION: confirm ET placement, and post ROSC evaluation. COMPARISON: Chest radiograph same day at 0018 hours FINDINGS/IMPRESSION: Lines/Tubes: Endotracheal tube tip 4.5 cm above the nitin. Otherwise no change Lungs/pleura: Increasing left lung opacification. Increasing left pleural effusion. No pneumothorax. Heart and Mediastinum: Unchanged. Soft Tissues and Bones: Unchanged. Signed: Delano Castro MDReport Verified Date/Time: 01/16/2021 16:24:00 Reading Location: [address] Transitional Reading Room BLOOD GAS, ARTERIAL 2021-01-16 15:46:00 Test Item Value Reference Range Interpretation [...] CONCENTRATION Adequate (CELLAVISION)(BEAKER) (test code = 3438) Sales Enablement Consultant ID - Maryan Phillips comments: Slide comments:[id number] 15:43:00 Test Item Value Reference Range Interpretation [...] is 2.5-3.5 for patients with mechanical heart valves.[id number] 15:39:00 Test Item Value Reference Range Interpretation Comments PHOSPHORUS (BEAKER) (test code = 12.0 mg/dL 2.3-4.7 HH 604) Sales Enablement Consultant ID - [id number] 15:38:00 Test Item Value Reference Range Interpretation Comments MAGNESIUM (BEAKER) (test code = 3.0 mg/dL 1.6-2.6 H 627) Sales Enablement Consultant ID - DBCOMPREHENSIVE METABOLIC [id number] 15:38:00 Test Item Value Reference Range Interpretation [...] S NOT APPLICABLE FOR DIALYSIS PATIEN TS. Sales Enablement Consultant ID - DBLACTIC ACID, [id number] 15:33:00 Test Item Value Reference Range Interpretation Comments LACTATE BLOOD ARTERIAL (2) 10.2 mmol/L 0.5-2.2 HH (BEAKER) (test code = 2874) Sales Enablement Consultant ID - DBCBC W/PLT COUNT & AUTO [id number] 15:20:00 Test Item Value Reference Range Interpretation [...] (BEAKER) (test code = 413) BLOOD GAS, [id number] 15:19:00 Test Item Value Reference Range Interpretation [...] (BEAKER) 37.0 (test code = 1818) CALCIUM, [id number] 15:19:00 Test Item Value Reference Range Interpretation Comments CALCIUM IONIZED (BEAKER) (test 1.35 mmol/L 1.12-1.27 H code = 698) PH, BLOOD (BEAKER) (test code = 7.26 1810) POC-Blood gases, [id number] 14:45:00 Test Item Value Reference Range Interpretation [...] tomated message] code = 1838) The system [employer] h generated this result transmit ari reference range : 80.0 - 90.0 mm Hg. The reference r kevin was not used to interpret this result as normal/abnormal . SO2, Arterial-POC (test 96.0 % 96-97 code = 1839) HCO3, Arterilal-POC 18.6 meq/L 21-29 L (test code = 1840) BE, Arterial-POC (test -9.0 meq/L -2-3 L : HALIMA ARI AT [facility] code = 1841) [address] [place] [address], [address]: Sales Enablement Consultant/Techni won ID = [id number] for IBAY, MIGUEL Lab Interpretation Abnormal (test code = 55659-2) [facility]-[id number] 14:45:00 Test Item Value Reference Range Interpretation Comments POC-Potassium (test code 5.7 meq/L 3.6-5.5 H : T ESTED AT [facility] = 1540) [address] [place] [address], [address]: Sales Enablement Consultant/Techni won ID = [id number] for IBAY, MIGUEL Lab Interpretation (test Abnormal code = 67107-4) [facility]-[id number] 14:45:00 Test Item Value Reference Range Interpretation Comments POC-Sodium (test code = 134 meq/L 135-148 L : TE STED AT [facility] 1542) [address] [place] [address], [address]: Sales Enablement Consultant/Techni won ID = [id number] for IBAY, MIGUEL Lab Interpretation (test Abnormal code = 71484-4) [facility]-[id number] 14:45:00 Test Item Value Reference Range Interpretation Comments POC-Glucose (test code = 264 mg/dL 70-110 H : T ESTED AT [facility] 1855) [address] [facility] [place], [address]: Sales Enablement Consultant/Techni won ID = [id number] for IBAY, MIGUEL Lab Interpretation (test Abnormal code = 74709-6) [facility]-[id number] 14:45:00 Test Item Value Reference Range Interpretation Comments POC-Hemoglobin (test code 6.5 g/dL 13-16.8 L : TESTED AT [facility] = 1856) [address] [facility], [address]: Sales Enablement Consultant/Techni won ID = [id number] for IBAY, MIGUEL Lab Interpretation (test Abnormal code = 10607-5) [facility]-[id number] 14:45:00 Test Item Value Reference Range Interpretation Comments POC-Hematocrit (test code 19 % 40-50 L : = 1857) Sales Enablement Consultant/Techni won ID = [id number] for IBAY, MIGUEL Lab Interpretation (test Abnormal code = 30742-9) [facility]-Blood gases, [id number] 14:45:00 Test Item Value Reference Range Interpretation [...] tomated message] code = 1838) The system [employer] SOLO generated this result transmit ari reference range : 80.0 - 90.0 mm Hg. The reference r kevin was not used to interpret this result as normal/abnormal . SO2, Arterial-POC (test 96.0 % 96-97 code = 1839) HCO3, Arterilal-POC 18.6 meq/L 21-29 L (test code = 1840) BE, Arterial-POC (test -9.0 meq/L -2-3 L : HALIMA ARI AT [facility] code = 1841) [address] [place] [address] [place], [address]: Sales Enablement Consultant/Techni won ID = [id number] for IBAY, MIGUEL Lab Interpretation Abnormal (test code = 31110-2) [facility]-[id number] 14:45:00 Test Item Value Reference Range Interpretation Comments POC-Potassium (test code 5.7 meq/L 3.6-5.5 H : T ESTED AT [facility] = 1540) [address] [place] [address], [address]: Sales Enablement Consultant/Techni won ID = [id number] for IBAY, MIGUEL Lab Interpretation (test Abnormal code = 70467-9) [facility]-[id number] 14:45:00 Test Item Value Reference Range Interpretation Comments POC-Sodium (test code = 134 meq/L 135-148 L : TE STED AT [facility] 1542) [address] [place] [address], [address]: Sales Enablement Consultant/Techni won ID = [id number] for IBAY, MIGUEL Lab Interpretation (test Abnormal code = 64404-3) [facility]-[id number] 14:45:00 Test Item Value Reference Range Interpretation Comments POC-Glucose (test code = 264 mg/dL 70-110 H : T ESTED AT [facility] 1855) [address] [place] [address], [address]: Sales Enablement Consultant/Techni won ID = [id number] for IBAY, MIGUEL Lab Interpretation (test Abnormal code = 20793-2) [facility]-[id number] 14:45:00 Test Item Value Reference Range Interpretation Comments POC-Hemoglobin (test code 6.5 g/dL 13-16.8 L : TESTED AT [facility] = 1856) [address] [place] [address], [address]: Sales Enablement Consultant/Techni won ID = [id number] for IBAY, MIGUEL Lab Interpretation (test Abnormal code = 71361-8) [facility]-[id number] 14:45:00 Test Item Value Reference Range Interpretation Comments POC-Hematocrit (test code 19 % 40-50 L : = 1857) Sales Enablement Consultant/Techni won ID = [id number] for IBAY, MIGUEL Lab Interpretation (test Abnormal code = 30521-0) [facility]-Blood gases, [id number] 14:45:00 Test Item Value Reference Range Interpretation [...] tomated message] code = 1838) The system [employer] generated this result transmit ari reference range : 80.0 - 90.0 mm Hg. The reference r kevin was not used to interpret this result as normal/abnormal . SO2, Arterial-POC (test 96.0 % 96-97 code = 1839) HCO3, Arterilal-POC 18.6 meq/L 21-29 L (test code = 1840) BE, Arterial-POC (test -9.0 meq/L -2-3 L : HALIMA ARI AT [facility] code = 1841) [address] [place], [address]: Sales Enablement Consultant/Techni won ID = [id number] for IBAY, MIGUEL Lab Interpretation Abnormal (test code = 14515-0) [facility]-[id number] 14:45:00 Test Item Value Reference Range Interpretation Comments POC-Potassium (test code 5.7 meq/L 3.6-5.5 H : T ESTERemy AT [facility] = 1540) [address] [facility] [place], [address]: Sales Enablement Consultant/Techni won ID = [id number] for IBAY, MIGUEL Lab Interpretation (test Abnormal code = 08937-3) [facility]-[id number] 14:45:00 Test Item Value Reference Range Interpretation Comments POC-Sodium (test code = 134 meq/L 135-148 L : TE STED AT [facility] 1542) [address] [facility], [address]: Sales Enablement Consultant/Techni won ID = [id number] for IBAY, MIGUEL Lab Interpretation (test Abnormal code = 74031-7) [facility]-[id number] 14:45:00 Test Item Value Reference Range Interpretation Comments POC-Glucose (test code = 264 mg/dL 70-110 H : T ESTED AT [facility] 1855) [address] [place] [address], [address]: Sales Enablement Consultant/Techni won ID = [id number] for IBAY, MIGUEL Lab Interpretation (test Abnormal code = 13311-6) [facility]-[id number] 14:45:00 Test Item Value Reference Range Interpretation Comments POC-Hemoglobin (test code 6.5 g/dL 13-16.8 L : TESTED AT [facility] = 1856) [address] [place] [address], [address]: Sales Enablement Consultant/Techni won ID = [id number] for IBAY, MIGUEL Lab Interpretation (test Abnormal code = 01958-3) [facility]-[id number] 14:45:00 Test Item Value Reference Range Interpretation Comments POC-Hematocrit (test code 19 % 40-50 L : = 1857) Sales Enablement Consultant/Techni won ID = [id number] for IBAY, MIGUEL Lab Interpretation (test Abnormal code = 20145-3) [facility]-BLOOD GASES, [id number] 14:45:00 Test Item Value Reference Range Interpretation [...] = 1838) SO2, ARTERIAL-POC 96.0 % 96.0-97.0 (AKER) (test code = 1839) HCO3, ARTERIAL-POC 18.6 meq/L 21.0-29.0 L ([facility]) (test code = 1840) BASE EXCESS, -9.0 meq/L -2.0-3.0 L : TESTED AT [place] [address] ARTERIAL-POC [facility], ([facility]) (test code [address]: = 1841) Sales Enablement Consultant/Techni won ID = [id number] for MIGUEL GANDARA [id number] 14:45:00 Test Item Value Reference Range Interpretation Comments POC-SODIUM ([facility]) 134 meq/L 135-148 L : TESTED AT [place] [address] (test code = 1542) [facility], [address]: Sales Enablement Consultant/Techni won ID = [id number] for MIGUEL GANDARA [id number] 14:45:00 Test Item Value Reference Range Interpretation Comments POC-POTASSIUM 5.7 meq/L 3.6-5.5 H : TESTED AT [place] [address] ([facility]) (test code [facility], = 1540) [address]: Sales Enablement Consultant/Techni won ID = [id number] for MIGUEL GANDARA [id number] 14:45:00 Test Item Value Reference Range Interpretation Comments POC-HEMOGLOBIN 6.5 g/dL 13.0-16.8 L : TESTED AT [place] [address] ([facility]) (test code = NORM [place] [facility] [place], 185) [address]: Sales Enablement Consultant/Techni won ID = [id number] for MIGUEL GANDRAA WEIF-[id number] 14:45:00 Test Item Value Reference Range Interpretation Comments POC-HEMATOCRIT 19 % 40-50 L : Sales Enablement Consultant/Te chnician ID = ([facility]) (test code = 231008 for MIGUEL GANDARA 185) [id number] 14:45:00 Test Item Value Reference Range Interpretation Comments POC-GLUCOSE ([facility]) 264 mg/dL 70-110 H : TESTE D AT [place] [address] (test code = 1855) [facility], [address]: Sales Enablement Consultant/Techni wno ID = [id number] for MIGUEL GANDARA POCT-GLUCOSE [id number] 14:32:00 Test Item Value Reference Range Interpretation Comments POC-GLUCOSE METER 70 mg/dL 70-110 : TESTED A T [facility] 6720 (BEAKER) (test code = [place], 1538) [address]: Sales Enablement Consultant/Techni won ID = [id number] for AJCOBY LEW POC-Blood gases, [id number] 14:27:00 Test Item Value Reference Range Interpretation Comments Temp. Celsius-POC (test code = 1834) FIO2-POC (test code = 1835) pH, Venous-POC (test 7.225 7.320-7.420 L : TESTE D AT [facility] code = 1842) [address] [facility], [address] PCO2, Venous-POC (test 57.9 See_Comment H If [...] mated message] code = 1844) The system [employer] generated this result transmit ari reference range : 25.0 - 40.0 mm Hg. The reference r kevin was not used to interpret this result as normal/abnormal . SO2, Venous-POC (test 35.0 % 40-70 L code = 1845) HCO3, Venous-POC (test 24.0 meq/L 21-29 code = 1846) BE, Venous-POC (test -4.0 meq/L -2-3 L : code = 1847) Sales Enablement Consultant/Techni won ID = [id number] for MIGUEL GANDARA Lab Interpretation Abnormal (test code = 68554-1) [facility], [id number] 14:27:00 Test Item Value Reference Range Interpretation Comments Temp. Celsius-POC (test code = 1834) FIO2-POC (test code = 1835) pH, Venous-POC (test 7.225 7.320-7.420 L : TESTE D AT [facility] code = 1842) [address] [place], [address] PCO2, Venous-POC (test 57.9 See_Comment H If [...] mated message] code = 1844) The system [employer] generated this result transmit ari reference range : 25.0 - 40.0 mm Hg. The reference r kevin was not used to interpret this result as normal/abnormal . SO2, Venous-POC (test 35.0 % 40-70 L code = 1845) HCO3, Venous-POC (test 24.0 meq/L 21-29 code = 1846) BE, Venous-POC (test -4.0 meq/L -2-3 L : code = 1847) Sales Enablement Consultant/Techni won ID = [id number] for MIGUEL GANDARA Lab Interpretation Abnormal (test code = 88655-7) [facility]-Blood gases, [id number] 14:27:00 Test Item Value Reference Range Interpretation Comments Temp. Celsius-POC (test code = 1834) FIO2-POC (test code = 1835) pH, Venous-POC (test 7.225 7.320-7.420 L : TESTE D AT [facility] code = 1842) [address] [place], [address] PCO2, Venous-POC (test 57.9 See_Comment H If [...] mated message] code = 1844) The system [employer] generated this result transmit ari reference range : 25.0 - 40.0 mm Hg. The reference r kevin was not used to interpret this result as normal/abnormal . SO2, Venous-POC (test 35.0 % 40-70 L code = 1845) HCO3, Venous-POC (test 24.0 meq/L 21-29 code = 1846) BE, Venous-POC (test -4.0 meq/L -2-3 L : code = 1847) Sales Enablement Consultant/Techni won ID = [id number] for MIGUEL GANDARA Lab Interpretation Abnormal (test code = 15518-5) [facility]-BLOOD GASES, [id number] 14:27:00 Test Item Value Reference Range Interpretation Comments TEMP, CELSIUS-POC (BEAKER) (test code = 1834) FIO2-POC (BEAKER) (test code = 1835) PH, VENOUS-POC 7.225 7.320-7.420 L : TESTED AT [place] [address] (BEAKER) (test code [facility], = 1842) [address] PCO2, VENOUS-POC 57.9 mm Hg 41.0-51.0 H If pO2 is > 180, pCO2 may (BEAKER) (test code be posit ively biased = 1843) PO2, VENOUS-POC 26.0 mm Hg 25.0-40.0 (BEAKER) (test code = 1844) SO2, VENOUS-POC 35.0 % 40.0-70.0 L (BEAKER) (test code = 1845) HCO3, VENOUS-POC 24.0 meq/L 21.0-29.0 (BEAKER) (test code = 1846) BASE EXCESS, -4.0 meq/L -2.0-3.0 L : Sales Enablement Consultant/Tech [place] ID VENOUS-POC (BEAKER) = [id number] for MIGUEL GANDARA (test code = 1847) [id number] 14:27:00 Test Item Value Reference Range Interpretation Comments POC-SODIUM (BEAKER) 138 meq/L 135-148 : TESTED AT [facility] 67[address] (test code = 1542) [facility] [address]: Sales Enablement Consultant/Techni won ID = [id number] for MIGUEL GANDARA [id number] 14:27:00 Test Item Value Reference Range Interpretation Comments POC-POTASSIUM 6.2 meq/L 3.6-5.5 HH : TESTED AT [place] [address] (BEAKER) (test code [facility], = 1540) [address]: Sales Enablement Consultant/Techni won ID = [id number] for MIGUEL GANDARA [id number] 14:27:00 Test Item Value Reference Range Interpretation Comments POC-HEMOGLOBIN 6.5 g/dL 13.0-16.8 L : TESTED AT [facility] 6720 (BEAKER) (test code = NORM [place], [address]) [address]: Sales Enablement Consultant/Techni won ID = [id number] for MIGUEL GANDARA [id number] 14:27:00 Test Item Value Reference Range Interpretation Comments POC-HEMATOCRIT 19 % 40-50 L : Sales Enablement Consultant/Te chnician ID = (BEAKER) (test code = 178239 for MIGUEL GANDARA 1857) [id number] 14:27:00 Test Item Value Reference Range Interpretation Comments POC-GLUCOSE (BEAKER) 43 mg/dL 70-110 L : TESTE D AT [facility] 6720 (test code = 1855) SHANNA [place] [facility] [place], [address]: Sales Enablement Consultant/Techni won ID = [id number] for MIGUEL GANDARA CBC W/PLT COUNT & AUTO [id number] 11:27:00 Test Item Value Reference Range Interpretation Comments WHITE BLOOD CELL COUNT (BEAKER) 17.2 K/ L 3.5-10.5 H (test code [...] CONCENTRATION Adequate (CELLAVISION)(BEAKER) (test code = 3438) Sales Enablement Consultant ID - Loren Sethi comments: Slide comments:SPUTUM CULTURE + GRAM [id number] 08:40:00 Test Item Value Reference Range Interpretation [...] epithelial RESULT cells (BEAKER) (test code = 360567) GRAM STAIN No organisms seen RESULT (BEAKER) (test code = 091809) <1+ Normal respiratory mendy presentBRONCHIAL CULTURE + GRAM [id number] 08:39:00 Test Item Value Reference Interpretation Comments [...] No organisms seen (BEAKER) (test code = 834067) 1+ Normal respiratory mendy [id number] 07:27:00 Test Item Value Reference Range Interpretation Comments PARTIAL THROMBOPLASTIN TIME 77.8 seconds 22.5-36.0 H (BEAKER) (test code = 760) [id number] 06:36:00 Test Item Value Reference Range Interpretation Comments PARTIAL THROMBOPLASTIN TIME 65.8 seconds 22.5-36.0 H (BEAKER) (test code = 760) PROTHROMBIN [id number] 06:35:00 Test Item Value Reference Range Interpretation Comments PROTIME (BEAKER) 16.1 seconds 11.9-14.2 H (test code = 759) INR (BEAKER) (test 1.31 See_Comment [Automat ed message] code = 370) The system Zoondy generated this result transmitted ref erence range: <=5.90. The reference range was not used to int erpret this result as normal/abnormal . RECOMMENDED COUMADIN/WARFARIN INR THERAPY RANGESSTANDARD DOSE: 2.0 - 3.0 Includes: PROPHYLAXIS for venous thrombosis, systemic embolization; TREATMENT for venous thrombosis and/or pulmonary embolus.HIGH RISK: Target INR is 2.5-3.5 for patients with mechanical heart valves.BASIC METABOLIC [id number] 05:07:00 Test Item Value Reference Range Interpretation [...] S NOT APPLICABLE FOR DIALYSIS PATIEN TS. Sales Enablement Consultant ID - [id number] 04:57:00 Test Item Value Reference Range Interpretation Comments MAGNESIUM (BEAKER) (test code = 2.2 mg/dL 1.6-2.6 627) Sales Enablement Consultant ID - [id number] 04:57:00 Test Item Value Reference Range Interpretation Comments PHOSPHORUS (BEAKER) (test code = 6.4 mg/dL 2.3-4.7 H 604) Sales Enablement Consultant ID - ADMINRAD, CHEST, 1 VIEW, NON [id number] 01:08:00Reason for exam:->chest tubes, s/p cardiac surgeryShould this be performed at the bedside?->Yes[facility] : 1975 Sex: MFINAL REPORT CLINICAL INDICATION: Postop Comparison: 01/15/2021 The cardiomediastinal contours are stable. Central pulmonary vascular congestion and bilateral parenchymal opacities are similar to previous. There is no pneumothorax. A left chest tube has been removed. A left IJ CVC remains in place. Signed: Domingo Duron MDReport Verified Date/Time: 01/16/2021 01:08:13 POCT- GLUCOSE [id number] 00:14:00 Test Item Value Reference Range Interpretation Comments POC-GLUCOSE METER 96 mg/dL 70-110 : TESTED A T [facility] 6720 (TAMARA) (test code = [place], 1538) [id number]: Sales Enablement Consultant/Techni won ID = [id number] for CRESCENCIO PRIETO [id number] 23:26:00 Test Item Value Reference Range Interpretation Comments PARTIAL THROMBOPLASTIN TIME 54.3 seconds 22.5-36.0 H (DEISIAKER) (test code = 760) Lipid [id number] 22:53:00 Test Item Value Reference Range Interpretation Comments Triglycerides (test 84 mg/dL code = 2571-8) Cholesterol (test code 111 mg/dL = 3-3) HDL (test code = 25 mg/dL 2085-02) LDL Calculated (test 69 mg/dL code = 70752-3) CARLEY (test code = CARLEY) Triglyceride Reference Range: Low Risk <150 Borderline 150-199 High Risk 200-499 Very High Risk >=500 Cholesterol Reference Range: Low Risk <200 Borderline 200-239 High Risk >240 HDL Cholesterol Reference Range: Low Risk >=60 High Risk <40 LDL Cholesterol Reference Range: Optimal <100 Near Optimal 100-129 Borderline 130-159 High 160-189 Very High >=190 Sales Enablement Consultant ID - DB [facility] [id number] 22:53:00 Test Item Value Reference Range Interpretation Comments Triglycerides (test 84 mg/dL code = 2571-8) Cholesterol (test code 111 mg/dL = 3-3) HDL (test code = 25 mg/dL 2084-9) LDL Calculated (test 69 mg/dL code = 36250-6) CARLEY (test code = CARLEY) Triglyceride Reference Range: Low Risk <150 Borderline 150-199 High Risk 200-499 Very High Risk >=500 Cholesterol Reference Range: Low Risk <200 Borderline 200-239 High Risk >240 HDL Cholesterol Reference Range: Low Risk >=60 High Risk <40 LDL Cholesterol Reference Range: Optimal <100 Near Optimal 100-129 Borderline 130-159 High 160-189 Very High >=190 Sales Enablement Consultant ID - [facility] [id number] 22:53:00 Test Item Value Reference Range Interpretation Comments Triglycerides (test 84 mg/dL code = 2571-8) Cholesterol (test code 111 mg/dL = 2093-3) HDL (test code = 25 mg/dL 2085-9) LDL Calculated (test 69 mg/dL code = 61529-4) CARLEY (test code = CARLEY) Triglyceride Reference Range: Low Risk <150 Borderline 150-199 High Risk 200-499 Very High Risk >=500 Cholesterol Reference Range: Low Risk <200 Borderline 200-239 High Risk >240 HDL Cholesterol Reference Range: Low Risk >=60 High Risk <40 LDL Cholesterol Reference Range: Optimal <100 Near Optimal 100-129 Borderline 130-159 High 160-189 Very High >=190 Sales Enablement Consultant ID - DB [facility] campusLIPID [id number] 22:53:00 Test Item Value Reference Range Interpretation Comments TRIGLYCERIDES (BEAKER) (test code = 84 mg/dL 540) CHOLESTEROL (BEAKER) (test code = 111 mg/dL 631) HDL CHOLESTEROL (BEAKER) (test code 25 mg/dL = 976) LDL CHOLESTEROL CALCULATED (BEAKER) 69 mg/dL (test code = 633) Triglyceride Reference Range: Low Risk <150 Borderline 150-199 High Risk 200- 499 Very High Risk >=500Cholesterol Reference Range: Low Risk <200 Borderline 200-239 High Risk >240HDL Cholesterol Reference Range: Low Risk >=60 High Risk <40LDL Cholesterol Reference Range: Optimal <100 Near Optimal 100-129 Borderline 130-159 High 160-189 Very High >=190 Sales Enablement Consultant ID - DBBLOOD [id number] 19:01:00 Test Item Value Reference Range Interpretation Comments CULTURE (BEAKER) (test No growth in 5 days code = 1095) BLOOD [id number] 18:01:00 Test Item Value Reference Range Interpretation Comments CULTURE (BEAKER) (test No growth in 5 days code = 1095) POCT-GLUCOSE [id number] 12:26:00 Test Item Value Reference Range Interpretation Comments POC-GLUCOSE METER 101 mg/dL 70-110 : TESTED A T [facility] 6720 (TAMARA) (test code = [place], 1538) [address]: Sales Enablement Consultant/Techni won ID = [id number] for Paige Russell [id number] 09:21:00 Test Item Value Reference Range Interpretation Comments PARTIAL THROMBOPLASTIN TIME 35.0 seconds 22.5-36.0 (BEAKER) (test code = 760) RAD, CHEST, 1 VIEW, NON [id number] 09:14:00Reason for exam:->chest tubes, s/p cardiac surgeryShould this be performed at the bedside?->Yes [facility] : 1975 Sex: MFINAL REPORT RAD, CHEST, 1 VIEW, NON DEPT INDICATION: chest tubes, s/p cardiac surgery COMPARISON: Prior day's exam FINDINGS: Portable frontal view of the chest. IMPRESSION: Support Lines: Stable. Lungs and pleura: Unchanged airspace and interstitial opacities. No pneumothorax.Heart and mediastinum: Stable contours. Stable surgical changes.Additional findings: None. Signed: JR Tate Robert MDReport Verified Date/Time: 01/15/2021 09:14:18 Reading Location: [address] Neuro Reading Room POCT-GLUCOSE [id number] 08:23:00 Test Item Value Reference Range Interpretation Comments POC-GLUCOSE METER 104 mg/dL 70-110 : TESTED A T [facility] 6720 (TAMARA) (test code = NORM Tenorio [facility] [place], 1538) [address]: Sales Enablement Consultant/Techni won ID = [id number] for Paige Russell CBC W/PLT COUNT & AUTO [id number] 06:50:00 Test Item Value Reference Range Interpretation [...] CONCENTRATION Adequate (CELLAVISION)(BEAKER) (test code = 3438) Sales Enablement Consultant ID - Dariela OverholtUser comments: Slide comments:[id number] 04:17:00 Test Item Value Reference Range Interpretation Comments MAGNESIUM (BEAKER) (test code = 2.1 mg/dL 1.6-2.6 627) Sales Enablement Consultant ID - KENNETH WCOMPREHENSIVE METABOLIC [id number] 04:17:00 Test Item Value Reference Range Interpretation [...] S NOT APPLICABLE FOR DIALYSIS PATIEN TS. Sales Enablement Consultant ID - KENNETH WPROTHROMBIN TIME/[id number] 03:53:00 Test Item Value Reference Range Interpretation Comments PROTIME (BEAKER) 15.1 seconds 11.9-14.2 H (test code = 759) INR (BEAKER) (test 1.21 See_Comment [Automat ed message] code = 370) The system Zoondy generated this result transmitted ref erence range: <=5.90. The reference range was not used to int erpret this result as normal/abnormal . RECOMMENDED COUMADIN/WARFARIN INR THERAPY RANGESSTANDARD DOSE: 2.0 - 3.0 Includes: PROPHYLAXIS for venous thrombosis, systemic embolization; TREATMENT for venous thrombosis and/or pulmonary embolus.HIGH RISK: Target INR is 2.5-3.5 for patients with mechanical heart valves.POCT-GLUCOSE [id number] 21:26:00 Test Item Value Reference Range Interpretation Comments POC-GLUCOSE METER 77 mg/dL 70-110 : Notified RN/MD: TESTED (BEAKER) (test code = AT [facility] [address] [facility] 7555) [place], [address]: Sales Enablement Consultant/Techni won ID = [id number] for Tiago calvo (contract), Payal de leon PROTHROMBIN TIME/[id number] 13:30:00 Test Item Value Reference Range Interpretation Comments PROTIME (BEAKER) 15.3 seconds 11.9-14.2 H (test code = 759) INR (BEAKER) (test 1.23 See_Comment [Automat ed message] code = 370) The system Zoondy generated this result transmitted ref erence range: <=5.90. The reference range was not used to int erpret this result as normal/abnormal . RECOMMENDED COUMADIN/WARFARIN INR THERAPY RANGESSTANDARD DOSE: 2.0 - 3.0 Includes: PROPHYLAXIS for venous thrombosis, systemic embolization; TREATMENT for venous thrombosis and/or pulmonary embolus.HIGH RISK: Target INR is 2.5-3.5 for patients with mechanical heart valves.Hepatitis B surface [id number] 11:35:00 Test Item Value Reference Range Interpretation Comments HBsAg Screen (test code Nonreactive Nonreactive = 5195-3) CARLEY (test code = CARLEY) Specimen is considered negative for HBsAg. Lab Interpretation (test Normal code = 48883-7) [facility] B surface [id number] 11:35:00 Test Item Value Reference Range Interpretation Comments HBsAg Screen (test code Nonreactive Nonreactive = 5195-3) CARLEY (test code = CARLEY) Specimen is considered negative for HBsAg. Lab Interpretation (test Normal code = 61350-8) [facility] B surface [id number] 11:35:00 Test Item Value Reference Range Interpretation Comments HBsAg Screen (test code Nonreactive Nonreactive = 5195-3) CARLEY (test code = CARLEY) Specimen is considered negative for HBsAg. Lab Interpretation (test Normal code = 66078-2) [facility] B SURFACE [id number] 11:35:00 Test Item Value Reference Range Interpretation Comments HEPATITIS B SURFACE ANTIGEN (2) Nonreactive Nonreactive (BEAKER) (test code = 2585) Specimen is considered negative for HBsAg.SURGICALLY OBTAINED CULTURE + GRAM [id number] 08:16:00 Test Item Value Reference Interpretation Comments [...] No organisms seen (BEAKER) (test code = 349148) CBC W/PLT COUNT & AUTO [id number] 08:08:00 Test Item Value Reference Range Interpretation [...] CONCENTRATION Decreased (CELLAVISION)(BEAKER) (test code = 3438) Sales Enablement Consultant ID - Dariela OverholtUser comments: Slide comments:POCT-GLUCOSE METER 2021-01-14 07:33:00 Test Item Value Reference Range Interpretation Comments POC-GLUCOSE METER 103 mg/dL 70-110 : [facility] (BEAKER[facility] (test code = [place], 1538) [address]: Sales Enablement Consultant/Techni won ID = [id number] for Lokesh shernehaalyssaManuelito RAD, CHEST, 1 VIEW, NON [id number] 05:56:00Reason for exam:->ettShould this be performed at the bedside?->Yes [facility] : 1975 Sex: MFINAL REPORT RAD, CHEST, 1 VIEW, NON DEPT INDICATION: ett COMPARISON: Prior day's exam FINDINGS: Portable frontal view of the chest. IMPRESSION: Support Lines: Left-sided dialysis catheter with tip overlying the junction of the brachiocephalic vein and SVC, unchanged from prior exam. Left chest tube. A second tube now projects to the right of the spine (formerly projected over the left hemidiaphragm).Lungs and pleura: Bilateral lower lobe airspace disease is slightly increased from prior exam. No pneumothorax.Heart and mediastinum: Stable contours. Stable surgical changes.Additional findings: None. Signed: Alondra, Re MDReport Verified Date/Time: 01/14/2021 05:56:32 MAGNESIUM 2021-01-14 04:21:00 Test Item Value Reference Range Interpretation Comments MAGNESIUM (BEAKER) (test code = 2.3 mg/dL 1.6-2.6 627) Sales Enablement Consultant ID - VALDEZ MCOMPREHENSIVE METABOLIC [id number] 04:05:00 Test Item Value Reference Range Interpretation [...] S NOT APPLICABLE FOR DIALYSIS PATIEN TS. Sales Enablement Consultant ID - DBPOCT-GLUCOSE [id number] 03:46:00 Test Item Value Reference Range Interpretation Comments POC-GLUCOSE METER 83 mg/dL 70-110 : TESTED Elias Domignuez [facility] 67[address] (TAMARA) (test code = [place], 1538) [address]: Sales Enablement Consultant/Techni won ID = [id number] for Manuelito Busby RAD, CHEST, 1 VIEW, NON [id number] 19:37:00Reason for exam:->LIJ HD catheter placementShould this be performed at the bedside?->Yes [facility] : 1975 Sex: MFINAL REPORT Chest, one view. HISTORY: LIJ HD catheter placement COMPARISON: Radiograph from earlier today IMPRESSION: Interval extubation and removal of the left IJ pulmonary arterial catheter. Interval insertion of a left IJ hemodialysis catheter with the tip at the junction of the left brachiocephalic vein and superior vena cava. To left-sided chest tubes are unchanged in position There has been increased hazy opacity of the lungs which is most likely due to pulmonary edema. A left retrocardiac opacity is increasing and most likely due to atelectasis. Aspiration is considered less likely. No pleural effusion or pneumothorax. The cardiac silhouette is unchanged in size. No acute bone abnormality. Signed: Jerzy Ferrelleport Verified Date/Time: 01/13/2021 19:37:01 Reading Location: [facility] C013W Consult Reading Room Central Line (HD catheter J-Wire)2021-01-13 18:52:29Chapo Kennedy NP 01/13/2021 6:58 PMCentral Line (HD catheter J-Wire) Date/Time: 01/13/2021 5:30PMPerformed by: Chapo Kennedy NPAuthorized by: Benedicto Witt MD Consent: Verbal consent obtained. Written consent obtained.Risks and benefits: risks, benefits and alternatives were discussedConsent given by: power of attorneyPatient understanding: patient states understanding of the procedure being performedPatient consent: the patient's understanding of the procedure matches consent givenProcedure consent: procedure consent matches procedure scheduledRelevant documents: relevant documents present and verifiedTest results: test results available and properly labeledSite marked: the operative site was markedImaging studies: imaging studies availablePatient identity confirmed: arm bandTime out: Immediately prior to procedure a "time out" was called to verify the correct patient, procedure, equipment, business support specialist and site/side marked as required.Indications: vascular access (dialysis catheter) Anesthesia:Local Anesthetic: lidocaine 1% without epinephrineAnesthetic total: 1 mL Sedation:Patient sedated: no Preparation: skin prepped with 2% chlorhexidine and skin prepped with BetadineSkin prep agent dried: skin prep agent completely dried prior to procedureSterile barriers: all five maximum sterile barriers used - cap, mask, sterile gown, sterile gloves, and large sterile sheetHand hygiene: hand hygiene performed prior to central venous catheter insertionLocation details: leftinternal jugularPatient position: flatCatheter type: double lumenCatheter size: 12 FrPre-procedure: landmarks identifiedUltrasound guidance: noNumber of attempts: 1Successful placement: yesPost-procedure: line sutured and dressing appliedAssessment: placement verified by x-rayPatient tolerance: patient tolerated the procedure well with no immediate complicationsImmediate Post-Procedure Note Date/Time: 01/13/2021 6:58 PMAssistants to the procedure: NonePre-procedure diagnosis: s/p MVRPost-procedure diagnosis: s/p MVRProcedures Performed: Central Line (HD catheter J-Wire)Specimens removed: NoneEstimated blood loss (mL): NoneComplications: NoneType of anesthesia: NoneGrafts or Implants: NoneM[facility] campusCentral Line (HD catheter J-Wire) 2021-01-13 18:52:29Chapo Kennedy NP 01/13/2021 6:58 PMCentral Line (HD catheter J-Wire) Date/Time: 01/13/2021 5:30PMPerformed by: Chapo Kennedy NPAuthorized by: Benedicto Witt MD Consent: Verbal consent obtained. Written consent obtained.Risks and benefits: risks, benefits and alternatives were discussedConsent given by: power of attorneyPatient understanding: patient states understanding of the procedure being performedPatient consent: the patient's understanding of the procedure matches consent givenProcedure consent: procedure consent matches procedure scheduledRelevant documents: relevant do cuments present and verifiedTest results: test results available and properly labeledSite marked: the operative site was markedImaging studies: imaging studies availablePatient identity confirmed: arm bandTime out: Immediately prior to procedure a "time out" was called to verify the correct patient, procedure, equipment, business support specialist and site/side marked as required.Indications: vascular access (dialysis catheter) Anesthesia:Local Anesthetic: lidocaine 1% without epinephrineAnesthetic total: 1 mL Sedation:Patient sedated: no Preparation: skin prepped with 2% chlorhexidine and skin prepped with BetadineSkin prep agent dried: skin prep agent completely dried prior to procedureSterile barriers: all five maximum sterile barriers used - cap, mask, sterile gown, sterile gloves, and large sterile sheetHand hygiene: hand hygiene performed prior to central venous catheter insertionLocation details: leftinternal jugularPatient position: flatCatheter type: double lumenCatheter size: 12 FrPre-procedure: landmarks identifiedUltrasound guidance: noNumber of attempts: 1Successful placement: yesPost-procedure: line sutured and dressing appliedAssessment: placement verified by x-rayPatient tolerance: patient tolerated the procedure well with no immediate complicationsImmediate Post-Procedure Note Date/Time: 01/13/2021 6:58 PMAssistants to the procedure: NonePre-procedure diagnosis: s/p MVRPost- procedure diagnosis: s/p MVRProcedures Performed: Central Line (HD catheter J- Wire)Specimens removed: NoneEstimated blood loss (mL): NoneComplications: NoneType of anesthesia: NoneGrafts or Implants: NoneCH[facility] Central Line (HD catheter J-Wire)2021-01-13 18:52:29Chapo Kennedy NP 01/13/2021 6:58 PMCentral Line (HD catheter J-Wire) Date/Time: 01/13/2021 5:30 PMPerformed by: Chapo Kennedy NPAuthorized by: Benedicto Witt MD Consent: Verbal consent obtained. Written consent obtained.Risks and benefits: risks, benefits and alternatives were discussedConsent given by: power of attorneyPatient understanding: patient states understanding of the procedure being performedPatient consent: the patient's understanding of the procedure matches consent givenProcedure consent: procedure consent matches procedure scheduledRelevant documents: relevant documents present and verifiedTest results: test results available and properly labeledSite marked: the operative site was markedImaging studies: imaging studies availablePatient identity confirmed: arm bandTime out: Immediately prior to procedure a "time out" was called to verify the correct patient, procedure, equipment, business support specialist and site/side marked as required.Indications: vascular access (dialysis catheter) Anesthesia:Local Anesthetic: lidocaine 1% without epinephrineAnesthetic total: 1 mL Sedation:Patient sedated: no Preparation: skin prepped with 2% chlorhexidine and skin prepped with BetadineSkin prep agent dried: skin prep agent completely dried prior to procedureSterile barriers: all five maximum sterile barriers used - cap, mask, sterile gown, sterile gloves, and large sterile sheetHand hygiene: hand hygiene performed prior to central venous catheter insertionLocation details: leftinternal jugularPatient position: flatCatheter type: double lumenCatheter size: 12 FrPre-procedure: landmarks identifiedUltrasound guidance: noNumber of attempts: 1Successful placement: yesPost-procedure: line sutured and dressing appliedAssessment: placement verified by x-rayPatient tolerance: patient tolerated the procedure well with no immediate complicationsImmediate Post-Procedure Note Date/Time: 01/13/2021 6:58 PMAssistants to the procedure: NonePre-procedure diagnosis: s/p MVRPost-procedure diagnosis: s/p MVRProcedures Performed: Central Line (HD catheter J-Wire)Specimens removed: NoneEstimated blood loss (mL): NoneComplications: NoneType of anesthesia: NoneGrafts or Implants: NoneCHI [facility] Psychiatric PavilionPOCT-GLUCOSE [id number] 17:36:00 Test Item Value Reference Range Interpretation Comments POC-GLUCOSE METER 100 mg/dL 70-110 : TESTED A T [facility] 67[address] (BEAKER) (test code = [place], 1538) [address]: Sales Enablement Consultant/Techni won ID = [id number] for DU NLAP ABRAN BASIC METABOLIC [id number] 15:58:00 Test Item Value Reference Range Interpretation [...] S NOT APPLICABLE FOR DIALYSIS PATIEN TS. Sales Enablement Consultant ID - [id number] 15:56:00 Test Item Value Reference Range Interpretation Comments MAGNESIUM (BEAKER) (test code = 2.2 mg/dL 1.6-2.6 627) Sales Enablement Consultant ID - DBBLOOD GAS, [id number] 15:43:00 Test Item Value Reference Range Interpretation [...] FIO2 (BEAKER) (test code = 1819) 40.0 [id number] 12:57:00 Test Item Value Reference Range Interpretation Comments POTASSIUM (BEAKER) (test code = 3.9 meq/L 3.5-5.1 379) Sales Enablement Consultant ID - VIRGILIO BAILEYOOD GAS, [id number] 12:14:00 Test Item Value Reference Range Interpretation [...] (BEAKER) (test code = 1819) 40.0 POCT-GLUCOSE [id number] 12:04:00 Test Item Value Reference Range Interpretation Comments POC-GLUCOSE METER 105 mg/dL 70-110 : TESTED A T [facility] 6720 (BEAKER) (test code = [place], 1538) [address]: Sales Enablement Consultant/Techni won ID = [id number] for ABRAN PALOMINO [id number] 09:59:00 Test Item Value Reference Range Interpretation Comments MAGNESIUM (BEAKER) (test code = 2.2 mg/dL 1.6-2.6 627) Sales Enablement Consultant ID - [id number] 09:59:00 Test Item Value Reference Range Interpretation Comments PHOSPHORUS (BEAKER) (test code = 4.6 mg/dL 2.3-4.7 604) Sales Enablement Consultant ID - [id number] 09:59:00 Test Item Value Reference Range Interpretation Comments POTASSIUM (BEAKER) (test code = 3.7 meq/L 3.5-5.1 379) Sales Enablement Consultant ID - BSGLUCOSE-STAT [id number] 09:38:00 Test Item Value Reference Range Interpretation Comments GLUCOSE RANDOM (BEAKER) (test code 119 mg/dL 70-110 H = 652) HGB/HCT (H&H) - STAT [id number] 09:38:00 Test Item Value Reference Range Interpretation Comments HEMOGLOBIN (BEAKER) (test code = 8.3 GM/DL 13.0-16.8 L 410) HEMATOCRIT (BEAKER) (test code = 24.0 % 40.0-50.0 L 411) POTASSIUM-STAT [id number] 09:38:00 Test Item Value Reference Range Interpretation Comments POTASSIUM (BEAKER) (test code = 3.4 meq/L 3.6-5.5 L 379) BLOOD GAS, [id number] 09:37:00 Test Item Value Reference Range Interpretation [...] (test code = 1819) 40.0 SODIUM NA-STAT [id number] 09:34:00 Test Item Value Reference Range Interpretation Comments SODIUM (BEAKER) (test code = 381) 135 meq/L 136-145 L SPUTUM CULTURE + GRAM [id number] 08:30:00 Test Item Value Reference Interpretation Comments [...] 5-10 epithelial (BEAKER) (test code = cells 159830) GRAM STAIN RESULT No organisms seen (BEAKER) (test code = 710245) <1+ Normal respiratory mendy presentCBC W/PLT COUNT [...] CONCENTRATION Decreased (CELLAVISION)(BEAKER) (test code = 3438) Sales Enablement Consultant ID - Sun Menendez comments: Slide comments:RAD, CHEST, 1 VIEW, NON [id number] 07:21:00Reason for exam:->ettShould this be performed at the bedside?->Yes[facility] : 1975 Sex: MFINAL REPORT RAD, CHEST, 1 VIEW, NON DEPT INDICATION: ett COMPARISON: Prior day's exam FINDINGS: Portable frontal view of the chest. IMPRESSION: Support Lines: Stable. Lungs and pleura:No new consolidation. No pneumothorax.Heart and mediastinum: Stable contours. Stable surgical changes .Additional findings: None. Signed: JR Tate Robert MDReport Verified Date/Time: 107:21:00 Reading Location: [facility] Radiology Reading Room REHENSIVE METABOLIC [id number] 04:58:00 Test Item Value Reference Range Interpretation [...] S NOT APPLICABLE FOR DIALYSIS PATIEN TS. Sales Enablement Consultant ID - LINA [id number] 04:46:00 Test Item Value Reference Range Interpretation Comments MAGNESIUM (BEAKER) (test code = 2.2 mg/dL 1.6-2.6 627) Sales Enablement Consultant ID - LINA [id number] 04:46:00 Test Item Value Reference Range Interpretation Comments PHOSPHORUS (BEAKER) (test code = 4.3 mg/dL 2.3-4.7 604) Sales Enablement Consultant ID - LINA LBLOOD GAS, [id number] 04:11:00 Test Item Value Reference Range Interpretation [...] FIO2 (BEAKER) (test code = 1819) 40.0 [id number] 21:46:00 Test Item Value Reference Range Interpretation Comments MAGNESIUM (BEAKER) (test code = 2.3 mg/dL 1.6-2.6 627) Sales Enablement Consultant ID - [id number] 21:46:00 Test Item Value Reference Range Interpretation Comments PHOSPHORUS (BEAKER) (test code = 4.3 mg/dL 2.3-4.7 604) Sales Enablement Consultant ID - [id number] 21:46:00 Test Item Value Reference Range Interpretation Comments POTASSIUM (BEAKER) (test code = 4.2 meq/L 3.5-5.1 379) Sales Enablement Consultant ID - BSPH, [id number] 21:28:00 Test Item Value Reference Range Interpretation Comments PH ARTERIAL (BEAKER) (test code = 383) 7.46 7.35-7.45 H BASIC METABOLIC [id number] 15:47:00 Test Item Value Reference Range Interpretation [...] S NOT APPLICABLE FOR DIALYSIS PATIEN TS. Sales Enablement Consultant SHELBI KELLOGG [id number] 15:39:00 Test Item Value Reference Range Interpretation Comments MAGNESIUM (BEAKER) (test code = 2.4 mg/dL 1.6-2.6 627) Sales Enablement Consultant ID - VALDEZ [id number] 15:39:00 Test Item Value Reference Range Interpretation Comments PHOSPHORUS (BEAKER) (test code = 5.1 mg/dL 2.3-4.7 H 604) Sales Enablement Consultant SHELBI KELLOGG MBASIC METABOLIC [id number] 10:19:00 Test Item Value Reference Range Interpretation [...] S NOT APPLICABLE FOR DIALYSIS PATIEN TS. Sales Enablement Consultant ID - VALDEZ [id number] 10:18:00 Test Item Value Reference Range Interpretation Comments MAGNESIUM (BEAKER) (test code = 2.5 mg/dL 1.6-2.6 627) Sales Enablement Consultant ID - VALDEZ [id number] 10:18:00 Test Item Value Reference Range Interpretation Comments PHOSPHORUS (BEAKER) (test code = 5.9 mg/dL 2.3-4.7 H 604) Sales Enablement Consultant ID - VALDEZ MCBC W/PLT COUNT & AUTO [id number] 08:15:00 Test Item Value Reference Range Interpretation [...] CONCENTRATION Decreased (CELLAVISION)(BEAKER) (test code = 3438) Sales Enablement Consultant ID - Zaira Simons comments: Slide comments:POCT-GLUCOSE METER 2021-01-12 07:17:00 Test Item Value Reference Range Interpretation Comments POC-GLUCOSE METER 129 mg/dL 70-110 H : TESTED A T [facility] 6720 (BEAKER) (test code = [place], 1538) [id number]: Sales Enablement Consultant/Techni won ID = [id number] for Be rki, Meti COMPREHENSIVE METABOLIC [id number] 04:04:00 Test Item Value Reference Range Interpretation [...] S NOT APPLICABLE FOR DIALYSIS PATIEN TS. Sales Enablement Consultant ID - VALDEZ [id number] 03:58:00 Test Item Value Reference Range Interpretation Comments MAGNESIUM (BEAKER) (test code = 2.7 mg/dL 1.6-2.6 H 627) Sales Enablement Consultant ID - VALDEZ [id number] 03:58:00 Test Item Value Reference Range Interpretation Comments PHOSPHORUS (BEAKER) (test code = 5.8 mg/dL 2.3-4.7 H 604) Sales Enablement Consultant ID - VALDEZ MLACTIC ACID, [id number] 03:50:00 Test Item Value Reference Range Interpretation Comments LACTATE BLOOD ARTERIAL (2) 1.0 mmol/L 0.5-2.2 (BEAKER) (test code = 2874) Sales Enablement Consultant ID - VALDEZ MOXYGEN SATURATION, [id number] 03:42:00 Test Item Value Reference Range Interpretation Comments O2 SATURATION (MEASURED) (BEAKER) 70.7 % (test code = 1455) BLOOD GAS, [id number] 03:42:00 Test Item Value Reference Range Interpretation [...] (BEAKER) (test code = 1819) 40.0 CALCIUM, [id number] 03:41:00 Test Item Value Reference Range Interpretation Comments CALCIUM IONIZED (BEAKER) (test 1.15 mmol/L 1.12-1.27 code = 698) PH, BLOOD (BEAKER) (test code = 7.44 1810) POCT-GLUCOSE [id number] 03:37:00 Test Item Value Reference Range Interpretation Comments POC-GLUCOSE METER 132 mg/dL 70-110 H : TESTED A T [facility] 6720 (BEAKER) (test code = [place], 1538) [address]: Sales Enablement Consultant/Techni won ID = [id number] for Be rki, Meti RAD, CHEST, 1 VIEW, NON [id number] 03:17:00Reason for exam:->ettShould this be performed at the bedside?->Yes [facility] : 1975 Sex: MFINAL REPORT CLINICAL INDICATION: Support lines. Comparison: 01/11/2021 at 1946 hours The patient is rotated to the left. The cardiomediastinal contours are stable. Central pulmonary vascular congestion and bilateral parenchymal opacities are unchanged. There is no pneumothorax. Support lines are stable. Signed: Domingo Duron MDReport Verified Date/Time: 01/12/2021 03:17:44 BASIC METABOLIC [id number] 22:54:00 Test Item Value Reference Range Interpretation [...] S NOT APPLICABLE FOR DIALYSIS PATIEN TS. Sales Enablement Consultant ID - BSLACTIC ACID, [id number] 22:45:00 Test Item Value Reference Range Interpretation Comments LACTATE BLOOD ARTERIAL (2) 1.9 mmol/L 0.5-2.2 (BEAKER) (test code = 2874) Sales Enablement Consultant ID - BSBLOOD GAS, [id number] 22:37:00 Test Item Value Reference Range Interpretation [...] Time (test code = The system which 03347-6) generated this result transmitted ref erence range: 4.0 - 7. 0 minutes. The re ference range was not u sed to interpret this result as normal/abnor mal. TEG Fibrinogen Activity 71.6 See_Comment [Au tomated message] (test code = 34788-6) The sy stem which generated this result transmitted ref erence range: 61.0 - 7 3.0 degrees. The re ference range was not u sed to interpret this result as normal/abnor mal. TEG Platelet Aggregation 64.6 See_Comment [A utomated message] (test code = 99518-9) The sy stem which generated this result transmitted ref erence range: 55.0 - 6 5.0 MM. The reference r kevin was not used to interpret this result as normal/abnor mal. TEG Fibrinolysis (test 0.0 % 0-5 code = 89816-9) TEG-H Activated Clotting 5.8 See_Comment [A utomated [...] 1414) Lab Interpretation (test Normal code = 82826-8) [facility] 21:36:00 Test Item Value Reference Range Interpretation Comments TEG Activated Clotting 5.6 See_Comment [Aut omated message] Time (test code = The system which 71286-8) generated this result transmitted ref erence range: 4.0 - 7. 0 minutes. The re ference range was not u sed to interpret this result as normal/abnor mal. TEG Fibrinogen Activity 71.6 See_Comment [Au tomated message] (test code = 57565-8) The sy stem which generated this result transmitted ref erence range: 61.0 - 7 3.0 degrees. The re ference range was not u sed to interpret this result as normal/abnor mal. TEG Platelet Aggregation 64.6 See_Comment [A utomated message] (test code = 04958-1) The sy stem which generated this result transmitted ref erence range: 55.0 - 6 5.0 MM. The reference r kevin was not used to interpret this result as normal/abnor mal. TEG Fibrinolysis (test 0.0 % 0-5 code = 69952-4) TEG-H Activated Clotting 5.8 See_Comment [A utomated [...] 1414) Lab Interpretation (test Normal code = 69489-1) [facility] 21:36:00 Test Item Value Reference Range Interpretation Comments TEG Activated Clotting 5.6 See_Comment [Aut omated message] Time (test code = The system which 38354-3) generated this result transmitted ref erence range: 4.0 - 7. 0 minutes. The re ference range was not u sed to interpret this result as normal/abnor mal. TEG Fibrinogen Activity 71.6 See_Comment [Au tomated message] (test code = 33040-9) The sy stem which generated this result transmitted ref erence range: 61.0 - 7 3.0 degrees. The re ference range was not u sed to interpret this result as normal/abnor mal. TEG Platelet Aggregation 64.6 See_Comment [A utomated message] (test code = 64751-9) The sy stem which generated this result transmitted ref erence range: 55.0 - 6 5.0 MM. The reference r kevin was not used to interpret this result as normal/abnor mal. TEG Fibrinolysis (test 0.0 % 0-5 code = 63194-4) TEG-H Activated Clotting 5.8 See_Comment [A utomated [...] 1414) Lab Interpretation (test Normal code = 43212-5) [facility]ROM[facility]2021-01-11 21:36:00 Test Item [...] CONCENTRATION Decreased (CELLAVISION)(BEAKER) (test code = 3438) Sales Enablement Consultant ID - Samantha comments: Slide comments:BLOOD GAS, ARTERIAL 2021-01-11 21:00:00 [...] (test code = 1819) 60.0 OXYGEN SATURATION, [id number] 20:58:00 Test Item Value Reference Range Interpretation Comments O2 SATURATION (MEASURED) (BEAKER) 76.5 % (test code = 1455) BASIC METABOLIC [id number] 20:23:00 Test Item Value Reference Range Interpretation [...] S NOT APPLICABLE FOR DIALYSIS PATIEN TS. Sales Enablement Consultant ID - BSBLOOD GAS, [id number] 20:19:00 Test Item Value Reference Range Interpretation [...] (BEAKER) (test code = 1819) 60.0 GLUCOSE-STAT [id number] 20:19:00 Test Item Value Reference Range Interpretation Comments GLUCOSE RANDOM (BEAKER) (test code 172 mg/dL 70-110 H = 652) HGB/HCT (H&H) - STAT [id number] 20:19:00 Test Item Value Reference Range Interpretation Comments HEMOGLOBIN (BEAKER) (test code = 9.4 GM/DL 13.0-16.8 L 410) HEMATOCRIT (BEAKER) (test code = 28.0 % 40.0-50.0 L 411) SODIUM NA-STAT [id number] 20:17:00 Test Item Value Reference Range Interpretation Comments SODIUM (BEAKER) (test code = 381) 137 meq/L 136-145 POTASSIUM-STAT [id number] 20:17:00 Test Item Value Reference Range Interpretation Comments POTASSIUM (BEAKER) (test code = 4.4 meq/L 3.6-5.5 379) CALCIUM, [id number] 20:17:00 Test Item Value Reference Range Interpretation Comments CALCIUM IONIZED (BEAKER) (test 1.21 mmol/L 1.12-1.27 code = 698) PH, BLOOD (BEAKER) (test code = 7.28 1810) [id number] 20:13:00 Test Item Value Reference Range Interpretation Comments MAGNESIUM (BEAKER) (test code = 2.7 mg/dL 1.6-2.6 H 627) Sales Enablement Consultant ID - [id number] 20:13:00 Test Item Value Reference Range Interpretation Comments PHOSPHORUS (BEAKER) (test code = 8.8 mg/dL 2.3-4.7 H 604) Sales Enablement Consultant ID - BSLACTIC ACID, [id number] 20:08:00 Test Item Value Reference Range Interpretation Comments LACTATE BLOOD ARTERIAL (2) 2.4 mmol/L 0.5-2.2 H (BEAKER) (test code = 2874) Sales Enablement Consultant ID - BSRAD, CHEST, 1 VIEW, NON [id number] 20:04:00Reason for exam:- >s/p cv surgeryShould this be performed at the bedside?->Yes [facility] 1975 Sex: MFINAL REPORT History: Postop. Comparison: None. Findings: A single view of the chestis submitted. There is been interval sternotomy and cardiac valve surgery. The cardiac silhouette iswithin normal limits for size. There is mild central vascular engorgement and diffuse interstitial opacification, which is likely exaggerated by supine positioning but may reflect mild pulmonary edema. Patchy mid and lower lung airspace opacities may reflect a combination of atelectasis and edema butpneumonitis should be excluded clinically. There is no pneumothorax or large pleural collection. Thetip of an endotracheal tube is 3.7 cm above the nitin. A left IJ PA catheter tip overlies the rightpulmonary artery. An enteric tube tip overlies left upper quadrant. A mediastinal drain and left chest tube are in place. Signed: Domingo Duron MDReport Verified Date/Time: 01/11/2021 20:04:03 [id number] 20:02:00 Test Item Value Reference Range Interpretation Comments FIBRINOGEN LEVEL (BEAKER) (test 318 mg/dl 225-434 code = 658) [id number] 20:02:00 Test Item Value Reference Range Interpretation Comments PARTIAL THROMBOPLASTIN TIME 30.3 seconds 22.5-36.0 (BEAKER) (test code = 760) PROTHROMBIN [id number] 20:01:00 Test Item Value Reference Range Interpretation Comments PROTIME (BEAKER) 18.8 seconds 11.9-14.2 H (test code = 759) INR (BEAKER) (test 1.60 See_Comment [Automat ed message] code = 370) The system Zoondy generated this result transmitted ref erence range: [...] = 413) CBC W/PLT COUNT & AUTO [id number] 19:48:00 Test Item Value Reference Range Interpretation [...] (test code = 413) POC ACTIVATED CLOTTING [id number] 18:26:00 Test Item Value Reference Range Interpretation Comments Activated Clotting Time 125 sec : 74 -137 seconds, (test code = 441) Baseline: TESTED AT [address], [facility] 30: Sales Enablement Consultant/Techni won ID = [id number] for CAST RO, JESSICA [facility] ACTIVATED CLOTTING [id number] 18:26:00 Test Item Value Reference Range Interpretation Comments Activated Clotting Time 125 sec : 74 -137 seconds, (test code = 441) Baseline: TESTED AT [address], [facility] 30: Sales Enablement Consultant/Techni won ID = [id number] for CAST RO, JESSICA [facility] ACTIVATED CLOTTING [id number] 18:26:00 Test Item Value Reference Range Interpretation Comments Activated Clotting Time 125 sec : 74 -137 seconds, (test code = 441) Baseline: TESTED AT [address], [facility] 30: Sales Enablement Consultant/Techni won ID = [id number] for CAST RO, JESSICA [facility]PO[facility]-[id number] 18:26:00 Test Item Value Reference Range Interpretation Comments ACTIVATED CLOTTING TIME 125 sec : 74 -137 seconds, (BEAKER) (test code = Baseli ne: TESTED AT 441) [address], [facility] 30: Sales Enablement Consultant/Techni won ID = [id number] for CA STRO, JESSICA [id number] 18:25:00 Test Item Value Reference Range Interpretation Comments ACTIVATED CLOTTING TIME 120 sec : 74 -137 seconds, (BEAKER) (test code = Baseli ne: TESTED AT 441) [address], [facility] 30: Sales Enablement Consultant/Techni won ID = [id number] for CA STRO, JESSICA [id number] 18:25:00 Test Item Value Reference Range Interpretation Comments ACTIVATED CLOTTING TIME 571 sec : 74 -137 seconds, (BEAKER) (test code = Baseli ne: TESTED AT 441) [address], [facility] 30: Sales Enablement Consultant/Techni won ID = [id number] for CA STRO, JESSICA [id number] 18:25:00 Test Item Value Reference Range Interpretation Comments ACTIVATED CLOTTING TIME 687 sec : 74 -137 seconds, (BEAKER) (test code = Baseli ne: TESTED AT 441) [address], [address]70 30: Sales Enablement Consultant/Techni won ID = [id number] for CA STRO, JESSICA [id number] 18:25:00 Test Item Value Reference Range Interpretation Comments ACTIVATED CLOTTING TIME 543 sec : 74 -137 seconds, (BEAKER) (test code = Baseli ne: TESTED AT 441) [address], [address]70 30: Sales Enablement Consultant/Techni won ID = [id number] for CA STRO, JESSICA [id number] 18:25:00 Test Item Value Reference Range Interpretation Comments ACTIVATED CLOTTING TIME 368 sec : 74 -137 seconds, (BEAKER) (test code = Baseli ne: TESTED AT 441) [address], [facility] 30: Sales Enablement Consultant/Techni won ID = [id number] for CA STRO, JESSICA PLATELET [id number] 18:11:00 Test Item Value Reference Range Interpretation Comments PLATELET COUNT (BEAKER) (test code 70 K/CU MM 150-450 L = 756) Sales Enablement Consultant ID - [id number] ID - [id number] ID - [id number] 17:51:00 Test Item Value Reference Range Interpretation Comments FIBRINOGEN LEVEL (BEAKER) (test 334 mg/dl 225-434 code = 658) [id number] 17:51:00 Test Item Value Reference Range Interpretation Comments PARTIAL THROMBOPLASTIN TIME 29.2 seconds 22.5-36.0 (BEAKER) (test code = 760) BLOOD GAS, [id number] 17:50:00 Test Item Value Reference Range Interpretation [...] (BEAKER) (test code = 1819) 60.0 GLUCOSE-STAT [id number] 17:50:00 Test Item Value Reference Range Interpretation Comments GLUCOSE RANDOM (BEAKER) (test code 165 mg/dL 70-110 H = 652) HGB/HCT (H&H) - STAT [id number] 17:50:00 Test Item Value Reference Range Interpretation Comments HEMOGLOBIN (BEAKER) (test code = 8.9 GM/DL 13.0-16.8 L 410) HEMATOCRIT (BEAKER) (test code = 26.0 % 40.0-50.0 L 411) CALCIUM, [id number] 17:50:00 Test Item Value Reference Range Interpretation Comments CALCIUM IONIZED (BEAKER) (test 1.16 mmol/L 1.12-1.27 code = 698) PH, BLOOD (BEAKER) (test code = 7.34 1810) PROTHROMBIN [id number] 17:50:00 Test Item Value Reference Range Interpretation Comments PROTIME (BEAKER) 21.8 seconds 11.9-14.2 H (test code = 759) INR (BEAKER) (test 1.93 See_Comment [Automat ed message] code = 370) The system Zoondy generated this result transmitted ref erence range: <=5.90. The reference range was not used to int erpret this result as normal/abnormal . RECOMMENDED COUMADIN/WARFARIN INR THERAPY RANGESSTANDARD DOSE: 2.0 - 3.0 Includes: PROPHYLAXIS for venous thrombosis, systemic embolization; TREATMENT for venous thrombosis and/or pulmonary embolus.HIGH RISK: Target INR is 2.5-3.5 for patients with mechanical heart valves.SODIUM NA-STAT [id number] 17:45:00 Test Item Value Reference Range Interpretation Comments SODIUM (BEAKER) (test code = 381) 137 meq/L 136-145 POTASSIUM-STAT [id number] 17:45:00 Test Item Value Reference Range Interpretation Comments POTASSIUM (BEAKER) (test code = 4.5 meq/L 3.6-5.5 379) SODIUM NA-STAT [id number] 17:24:00 Test Item Value Reference Range Interpretation Comments SODIUM (BEAKER) (test code = 381) 136 meq/L 136-145 POTASSIUM-STAT [id number] 17:24:00 Test Item Value Reference Range Interpretation Comments POTASSIUM (BEAKER) (test code = 4.3 meq/L 3.6-5.5 379) GLUCOSE-STAT [id number] 17:24:00 Test Item Value Reference Range Interpretation Comments GLUCOSE RANDOM (BEAKER) (test code 161 mg/dL 70-110 H = 652) HGB/HCT (H&H) - STAT [id number] 17:24:00 Test Item Value Reference Range Interpretation Comments HEMOGLOBIN (BEAKER) (test code = 8.7 GM/DL 13.0-16.8 L 410) HEMATOCRIT (BEAKER) (test code = 26.0 % 40.0-50.0 L 411) BLOOD GAS, [id number] 17:24:00 Test Item Value Reference Range Interpretation [...] (BEAKER) (test code = 1819) 21.0 CALCIUM, [id number] 17:22:00 Test Item Value Reference Range Interpretation Comments CALCIUM IONIZED (BEAKER) (test 1.34 mmol/L 1.12-1.27 H code = 698) PH, BLOOD (BEAKER) (test code = 7.33 1810) CALCIUM, [id number] 16:49:00 Test Item Value Reference Range Interpretation Comments CALCIUM IONIZED (BEAKER) (test 1.12 mmol/L 1.12-1.27 code = 698) PH, BLOOD (BEAKER) (test code = 7.46 1810) BLOOD GAS, [id number] 16:49:00 Test Item Value Reference Range Interpretation [...] (BEAKER) (test code = 1819) 97.0 GLUCOSE-STAT [id number] 16:49:00 Test Item Value Reference Range Interpretation Comments GLUCOSE RANDOM (BEAKER) (test code 152 mg/dL 70-110 H = 652) HGB/HCT (H&H) - STAT [id number] 16:49:00 Test Item Value Reference Range Interpretation Comments HEMOGLOBIN (BEAKER) (test code = 9.0 GM/DL 13.0-16.8 L 410) HEMATOCRIT (BEAKER) (test code = 26.0 % 40.0-50.0 L 411) SODIUM NA-STAT [id number] 16:48:00 Test Item Value Reference Range Interpretation Comments SODIUM (BEAKER) (test code = 381) 139 meq/L 136-145 POTASSIUM-STAT [id number] 16:48:00 Test Item Value Reference Range Interpretation Comments POTASSIUM (BEAKER) (test code = 5.0 meq/L 3.6-5.5 379) BLOOD GAS, [id number] 16:08:00 Test Item Value Reference Range Interpretation [...] (BEAKER) (test code = 1819) 70.0 POTASSIUM-STAT [id number] 16:08:00 Test Item Value Reference Range Interpretation Comments POTASSIUM (BEAKER) (test code = 5.8 meq/L 3.6-5.5 H 379) GLUCOSE-STAT [id number] 16:08:00 Test Item Value Reference Range Interpretation Comments GLUCOSE RANDOM (BEAKER) (test code 170 mg/dL 70-110 H = 652) HGB/HCT (H&H) - STAT [id number] 16:08:00 Test Item Value Reference Range Interpretation Comments HEMOGLOBIN (BEAKER) (test code = 9.0 GM/DL 13.0-16.8 L 410) HEMATOCRIT (BEAKER) (test code = 26.0 % 40.0-50.0 L 411) SODIUM NA-STAT [id number] 16:07:00 Test Item Value Reference Range Interpretation Comments SODIUM (BEAKER) (test code = 381) 135 meq/L 136-145 L BLOOD GAS, [id number] 15:42:00 Test Item Value Reference Range Interpretation [...] (BEAKER) (test code = 1819) 70.0 GLUCOSE-STAT [id number] 15:42:00 Test Item Value Reference Range Interpretation Comments GLUCOSE RANDOM (BEAKER) (test code 153 mg/dL 70-110 H = 652) HGB/HCT (H&H) - STAT [id number] 15:42:00 Test Item Value Reference Range Interpretation Comments HEMOGLOBIN (BEAKER) (test code = 9.6 GM/DL 13.0-16.8 L 410) HEMATOCRIT (BEAKER) (test code = 28.0 % 40.0-50.0 L 411) SODIUM NA-STAT [id number] 15:40:00 Test Item Value Reference Range Interpretation Comments SODIUM (BEAKER) (test code = 381) 136 meq/L 136-145 POTASSIUM-STAT [id number] 15:40:00 Test Item Value Reference Range Interpretation Comments POTASSIUM (BEAKER) (test code = 5.1 meq/L 3.6-5.5 379) GLUCOSE-STAT [id number] 15:13:00 Test Item Value Reference Range Interpretation Comments GLUCOSE RANDOM (BEAKER) (test code 139 mg/dL 70-110 H = 652) HGB/HCT (H&H) - STAT [id number] 15:13:00 Test Item Value Reference Range Interpretation Comments HEMOGLOBIN (BEAKER) (test code = 8.9 GM/DL 13.0-16.8 L 410) HEMATOCRIT (BEAKER) (test code = 26.0 % 40.0-50.0 L 411) BLOOD GAS, [id number] 15:13:00 Test Item Value Reference Range Interpretation [...] FIO2 (BEAKER) (test code = 1819) 70.0 SODIUM NA-STAT [id number] 15:11:00 Test Item Value Reference Range Interpretation Comments SODIUM (BEAKER) (test code = 381) 139 meq/L 136-145 POTASSIUM-STAT [id number] 15:11:00 Test Item Value Reference Range Interpretation Comments POTASSIUM (BEAKER) (test code = 4.9 meq/L 3.6-5.5 379) [id number] 14:31:03Glenn Peraza Jr., MD 01/11/2021 8:54 PMTEE Date: 01/11/2021 2:31 PM Sex: Male Location: OR Requesting Physician: Tereza Galvez MD Examiner: Glenn Peraza Jr., MD Intubated Sedated Patient screened for esoph disease: Yes Insertion: easy Probe Type: multiplane Modalities: 2D, CFM, CWD and PWD Inotrope: epinephrine/norepinephrine Aorta Size Dissection Plaque Thick Plaque Mobile Ascending Ao normal No < 3mm No Ao Arch normal No < 3mm No Descending Ao normal No < 3mm No Valves Annulus Stenosis Area (cm3) Gradient Regurgitation Leaflet Morphology Leaflet Motion Not Visualized Aortic valve normal none none normal normal Mitral valve dilated none severe (4+) vegetation restricted Tricuspid normal none moderate (3+) normal normal Atria Size SEC Thrombus Tumor Device Right Atrium normal No No No No Left Atrium No No No device Interatrial Septum: Morphology: normalASD: Shunt: Interventricular Septum: Morphology: Defect: Shunt: Ventricles Cavity size Dimension Hypertrophy Thrombus Global FXN EF Right ventricle normal Yes No normal Left ventricle normal Yes normal 50-55% Pre Intervention Summary: Aorta: No aneurysm, no dissection, no mobile plaquesAV: trileaflet morphology, no aortic stenosis, trace aortic regurgitationLV: normal chamber size , mild- moderate LVH, normal systolic function (EF 50-55%), no RWMA, no thrombusMV: severe mitral regurgitation with 2cm posteriorleaflet vegetation, no MS, No SAMRV: normal sized chamber, moderately reduced function (especially at apex), hypertrophic RV, D shaped intraventricular septum likely due to increased afterloadTV: normal morphology, moderate-servere tricuspid regurgitationRA: no thrombus No PFO by color dopper flow Allfindings communicated to surgical team. Post Intervention Summary: S/p mechanical mitral valve replacement and ERIC closure [...] All findings communicated to [facility] team.[facility] 14:31:03Glenn Peraza Jr., MD 01/11/2021 8:54 PMTEE Date: 01/11/2021 2:31 PM Sex: Male Location: OR Requesting Physician: Tereza Galvez MD Examiner: Glenn Peraza Jr., MD Intubated Sedated Patient screened for esoph disease: Yes Insertion: easy Probe Type: multiplane Modalities: 2D, CFM, CWD and PWD Inotrope: epinephrine/norepinephrine Aorta Size Dissection Plaque Thick Plaque Mobile Ascending Ao normal No < 3mm No Ao Arch normal No < 3mm No Descending Ao normal No < 3mm No Valves Annulus Stenosis Area (cm3) Gradient Regurgitation Leaflet Morphology Leaflet Motion Not Visualized Aortic valve normal none none normal normal Mitral valve dilated none severe (4+) vegetation restricted Tricuspid normal none moderate (3+) normal normal Atria Size SEC Thrombus Tumor Device Right Atrium normal No No No No Left Atrium No No No device Interatrial Septum: Morphology: normalASD: Shunt: Interventricular Septum: Morphology: Defect: Shunt: Ventricles Cavity size Dimension Hypertrophy Thrombus Global FXN EF Right ventricle normal Yes No normal Left ventricle normal Yes normal 50-55% Pre Intervention Summary: Aorta: No aneurysm, no dissection, no mobile plaquesAV: trileaflet morphology, no aortic stenosis, trace aortic regurgitationLV: normal chamber size , mild-moderate LVH, normal sy stolic function (EF 50-55%), no RWMA, no thrombusMV: severe mitral regurgitation with 2cm posterior leaflet vegetation, no MS, No SAMRV: normal sized chamber, moderately reduced function (especially atapex), hypertrophic RV, D shaped intraventricular septum likely due to increased afterloadTV: normalmorphology, moderate-servere tricuspid regurgitationRA: no thrombus No PFO by color dopper flow All findings communicated to surgical team. Post Intervention Summary: S/p mechanical mitral valve replacement and ERIC closure LV size and function unchanged, No RWMARV function improved, mildly reduced systolic functionMechanical MV well seated, no significant paravalvular leaks, mean gradient 3mmHgLAA appears closed with no flow, left upper pulmonary vein patent with good laminar flowAV structure and function unchangedTR improved, now mild- moderate TRNo pericardial effusion or aortic dissection All findings communicated to surgical team.[facility]TEE[facility]21-[facility]-04 14:31:03 Glenn Peraza Jr., MD 01/11/2021 8:54 PMTEE Date: 01/11/2021 2:31 PM Sex: Male Location: OR Requesting Physician: Tereza Galvez MD Examiner: Glenn Peraza Jr., MD Intubated Sedated Patient screened for esoph disease: Yes Insertion: easy Probe Type: multiplane Modalities: 2D, CFM, CWD and PWD Inotrope: epinephrine/norepinephrine Aorta Size Dissection Plaque Thick Plaque Mobile Ascending Ao normal No < 3mm No Ao Arch normal No < 3mm No Descending Ao normal No < 3mm No Valves Annulus Stenosis Area (cm3) Gradient Regurgitation Leaflet Morphology Leaflet Motion Not Visualized Aortic valve normal none none normal normal Mitral valve dilated none severe (4+) vegetation restricted Tricuspid normal none moderate (3+) normal normal Atria Size SEC Thrombus Tumor Device Right Atrium normal No No No No Left Atrium No No No device Interatrial Septum: Morphology: normalASD: Shunt: Interventricular Septum: Morphology: Defect: Shunt: Ventricles Cavity size Dimension Hypertrophy Thrombus Global FXN EF Right ventricle normal Yes No normal Left ventricle normal Yes normal 50-55% Pre Intervention Summary: Aorta: No aneurysm, no dissection, no mobile plaquesAV: trileaflet morphology, no aortic stenosis, trace aortic regurgitationLV: normal chamber size , mild-moderate LVH, normal sy stolic function (EF 50-55%), no RWMA, no thrombusMV: severe mitral regurgitation with 2cm posterior leaflet vegetation, no MS, No SAMRV: normal sized chamber, moderately reduced function (especially atapex), hypertrophic RV, D shaped intraventricular septum likely due to increased afterloadTV: normalmorphology, moderate-servere tricuspid regurgitationRA: no thrombus No PFO by color dopper flow All findings communicated to surgical team. Post Intervention Summary: S/p mechanical mitral valve replacement and ERIC closure LV size and function unchanged, No RWMARV function improved, mildly reduced systolic functionMechanical MV well seated, no significant paravalvular leaks, mean gradient 3mmHgLAA appears closed with no flow, left upper pulmonary vein patent with good laminar flowAV structure and function unchangedTR improved, now mild- moderate TRNo pericardial effusion or aortic dissection All findings communicated to surgical team.[facility] 2021-01-11 14:22:00 Test Item Value Reference Range Interpretation Comments GLUCOSE RANDOM (BEAKER) (test code 109 mg/dL 70-110 = 652) SODIUM NA-STAT [id number] 14:22:00 Test Item Value Reference Range Interpretation Comments SODIUM (BEAKER) (test code = 381) 138 meq/L 136-145 POTASSIUM-STAT [id number] 14:22:00 Test Item Value Reference Range Interpretation Comments POTASSIUM (BEAKER) (test code = 4.4 meq/L 3.6-5.5 379) BLOOD GAS, [id number] 14:22:00 Test Item Value Reference Range Interpretation [...] = 1819) 100.0 HGB/HCT (H&H) - STAT [id number] 14:22:00 Test Item Value Reference Range Interpretation Comments HEMOGLOBIN (BEAKER) (test code = 10.1 GM/DL 13.0-16.8 L 410) HEMATOCRIT (BEAKER) (test code = 30.0 % 40.0-50.0 L 411) POCT-GLUCOSE [id number] 12:53:00 Test Item Value Reference Range Interpretation Comments POC-GLUCOSE METER 121 mg/dL 70-110 H : TESTED A T [facility] 6720 (BEAKER) (test code [facility] [place], = 1538) [address]: Sales Enablement Consultant/Techni won ID = [id number] for Stri meena (contract), Syt damien RAD, CHEST, 1 VIEW, NON [id number] 10:43:00Reason for exam:->ettShould this be performed at the bedside?->Yes [facility] 1975 Sex: MFINAL REPORT RAD, CHEST, 1 VIEW, NON DEPT INDICATION: ett COMPARISON: Prior day's exam FINDINGS: Portable frontal view of the chest. IMPRESSION: Support Lines: Stable. Lungs and pleura:Stable patchy bilateral airspace disease. No pneumothorax.Heart and mediastinum: Stable contours. Additional findings: None. Signed: JR Tate Robert MDReport Verified Date/Time: 01/11/2021 10:43:44 Reading Location: [facility] Radiology Reading Room BASIC METABOLIC [id number] 10:11:00 Test Item Value Reference Range Interpretation [...] S NOT APPLICABLE FOR DIALYSIS PATIEN TS. Sales Enablement Consultant ID - VIRGILIO [id number] 10:10:00 Test Item Value Reference Range Interpretation Comments MAGNESIUM (BEAKER) (test code = 2.3 mg/dL 1.6-2.6 627) Sales Enablement Consultant ID - VIRGILIO [id number] 10:10:00 Test Item Value Reference Range Interpretation Comments PHOSPHORUS (BEAKER) (test code = 6.2 mg/dL 2.3-4.7 H 604) Sales Enablement Consultant ID - VIRGILIO MBLOOD GAS, [id number] 09:38:00 Test Item Value Reference Range Interpretation [...] (BEAKER) (test code = 1819) 40.0 CALCIUM, [id number] 09:34:00 Test Item Value Reference Range Interpretation Comments CALCIUM IONIZED (BEAKER) (test 1.19 mmol/L 1.12-1.27 code = 698) PH, BLOOD (BEAKER) (test code = 7.44 1810) POCT-GLUCOSE [id number] 06:58:00 Test Item Value Reference Range Interpretation Comments POC-GLUCOSE METER 108 mg/dL 70-110 : TESTED A T [facility] 6720 (BEAKER) (test code = [place], 1538) 24533: Sales Enablement Consultant/Techni won ID = [id number] for September COMPREHENSIVE METABOLIC [id number] 06:13:00 Test Item Value Reference Range Interpretation [...] S NOT APPLICABLE FOR DIALYSIS PATIEN TS. Sales Enablement Consultant ID - LINA LOperator ID - LINA LCBC W/PLT COUNT & AUTO [id number] 06:08:00 Test Item Value Reference Range Interpretation [...] CONCENTRATION Decreased (CELLAVISION)(BEAKER) (test code = 3438) Sales Enablement Consultant ID - Zaira BurkhalterUser comments: Slide comments:MAGNESIUM 2021-01-11 04:57:00 Test Item Value Reference Range Interpretation Comments MAGNESIUM (BEAKER) (test code = 2.3 mg/dL 1.6-2.6 627) Sales Enablement Consultant ID - LINA [id number] 04:57:00 Test Item Value Reference Range Interpretation Comments PHOSPHORUS (BEAKER) (test code = 6.4 mg/dL 2.3-4.7 H 604) Sales Enablement Consultant ID - LINA LCALCIUM, [id number] 04:43:00 Test Item Value Reference Range Interpretation Comments CALCIUM IONIZED (BEAKER) (test 1.13 mmol/L 1.12-1.27 code = 698) PH, BLOOD (BEAKER) (test code = 7.51 1810) BLOOD GAS, [id number] 04:42:00 Test Item Value Reference Range Interpretation [...] (BEAKER) (test code = 1819) 40.0 SARS-COV2/RT-PCR ([facility])2021-01-11 02:44:00 Test Item Value Reference Range Interpretation Comments SARS-COV2/RT-PCR Negative Negative The SARS-Co V-2 target (test code = 5852568) nuclei c acids are not detected in [...] below the analytical limit of detection in thisspecimen.This Xpert Xpress SARS-CoV-2/Flu/RSV test is a rapid, real-time RT-PCR test intended for the qualitative detection of nucleic acid from Xpert Xpress SARS-CoV-2/Flu/RSV in a nasopharyngeal swabspecimen collected from individuals suspected of Xpert Xpress SARS-CoV-2/Flu/RSV by their healthcareprovider. Results from [facility] Xpert Xpress SARS-CoV-2/Flu/RSV test should be correlated with the clinical history, epidemiological data, and other data available to the clinician evaluating the patient. Viral nucleic acid may persist in vivo, independent of virus viability. Detection of analyte target(s)does not imply that the corresponding virus(es) are infectious or are the causative agents for clinical symptoms.This test has not been Food and Drug Administration (FDA) cleared or approved and has been authorized by FDA under an Emergency Use Authorization (EUA). This EUA will be effective until thedeclaration that circumstances exist justifying the authorization of the emergency use of in vitro diagnostic tests for detection and/or diagnosis of COVID-19 is terminated under Section 564(b)(2) of the Act or the EUA is revoked under Section 564(g) of the Act.Fact Sheet for Healthcare Providers:https ://www.[employer]/Documents/Xpert%20Xpress%20SARS%20CoV-2/Fact%20Sheets/302-390 2%33WBUK-SDA-5%20HEALTHCARE%20PROVIDERS%20FACT%20SHEET.pdfFact Sheet for Healthcare Patients:https://www.[employer]/Docum ents/Xpert%20Xpress%20SARS%20Cov-2/Fact%20Sheets/3023801%53YOTE-UHR-9%20PATIENT %20FACT%20SHEET.pdfPOCT-GLUCOSE [id number] 00:19:00 Test Item Value Reference Range Interpretation Comments POC-GLUCOSE METER 88 mg/dL 70-110 : TESTED A T [facility] 6720 (BEAKER) (test code = [place]ORM [place] [facility] [place], 1538) 75000: Sales Enablement Consultant/Techni won ID = [id number] for Manuelito Busby [id number] 00:01:00 Test Item Value Reference Range Interpretation Comments PHOSPHORUS (BEAKER) (test code = 9.7 mg/dL 2.3-4.7 HH 604) Sales Enablement Consultant ID - BSBASIC METABOLIC [id number] 00:00:00 Test Item Value Reference Range Interpretation [...] S NOT APPLICABLE FOR DIALYSIS PATIEN TS. Sales Enablement Consultant ID - [id number] 23:57:00 Test Item Value Reference Range Interpretation Comments MAGNESIUM (BEAKER) (test code = 2.8 mg/dL 1.6-2.6 H 627) Sales Enablement Consultant ID - BSCALCIUM, [id number] 23:42:00 Test Item Value Reference Range Interpretation Comments CALCIUM IONIZED (BEAKER) (test 1.10 mmol/L 1.12-1.27 L code = 698) PH, BLOOD (BEAKER) (test code = 7.43 1810) 2D Echo W/Doppler(CW/PW/Color)2021-01-10 18:38:44Ejection FractionSLEH ECHO HEARTLAB MKCKESSON CPACSInterface, External Ris In - 01/10/2021 6:39 PM CD TTransthoracic Echocardiography Report (TTE) Demographics Patient Name CROW KAUR Date of Study 01/10/2021 SR. 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 The left ventricle is chamber size (by vol index) is normal (male - LVED vol - 34- 74ml/m2). LV septalthickness is normal (0.6-1.1cm). LV posterior wall thickness is mildly increased (1.2-1.4cm) . All of the LV segments contract normally . Global LV systolic function normal . LVEF by Suresh's method of disk assessment is normal (60%) . 2. RV chamber size is moderately enlarged . Global RV systolic function is depressed. 3. LA size is severely enlarged (>48 ml/m2) . RA cavity size is mildly enlarged . IV saline contrast injection was negative for a PFO (patent foramen ovale) at rest and post Valsalva . 4. Endocardidits of the mitral valve. There is a large ehogenic mass attached to the posteriormitral valve leaflet. The mass measures 2.0 cm [...] LV segments contract normally . Global LV systolicfunction normal . LVEF by Suresh's method of disk assessment is normal (60%) . Degree of diastolicdysfunction (LAP assessment) is inconclusive due to significant [...] regurgitation. Mitral Valve Endocardidits of the mitral valve.There is a large ehogenic mass attached to the posterior mitral valve leaflet. The mass measures 2.0cm x 2.1 cm. Severe mitral regurgitation noted with systolic flow reversal in the pulmonary veins. Tricuspid Valve Dilation of the tricuspid annulus noted. Tricuspid valve leaflets appear normal. There is moderate to severe tricuspid regurgitation. Estimated peak systolic PA pressure is > 90 mmHg assuming RAP > 20 mm Hg. Pulmonic [...] by IVC dynamics is > 20mmHg . Chambers/Structures Left Atrium LA Volume: 208.23 ml LA Area: 32.9 cm^2 LA Vol. Index: 100 ml/m^2 Left Ventricle LVIDd: 6.09 cm LVEDV:186.01 ml LV Septum Diastolic: 1.16 cm LV PW Diastolic: 1.26 cm LVEDV Suresh's:101.33 ml LVESV Suresh's:40.15 ml LVEF Suresh's: 60.4 % LVEDVI: 48 ml/m^2 LVESVI:19 ml/m^2 LVOT Diameter: 1.86 cm Right Atrium RA Area: 29.39 cm^2 Right Ventricle RV Diast Dim.: 4.8cm RV Systolic Pressure: 92.37 mmHg RVOT VTI: [...] LVOT SV:44.19 ml LVOT CO: 5.74 l/min LVOT CI: 2.75 l/min/m^2 Tricuspid Valve Estimated RAP: 20 mmHg TR Velocity: 4.25 m/s TR Gradient: 72.37 mmHg Pulmonic Valve Estimated PASP: 92.37 mmHgMission Bay campus2D Echo W/Doppler(CW/PW/Color) 2021-01-10 18:38:44Ejection FractionSLEH ECHO HEARTLAB MKCKESSON CPACSInterface, External Ris In - 01/10/2021 6:39 PM CDTTransthoracic Echocardiography Report (TTE) Demographics Patient Name CROW KAUR Date of Study 01/10/2021 SR. 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 The left ventricle is chamber size (by [...] . Global RV systolic function is depressed. 3. LA size [...] 2.1 cm. Severe mitral regurgitation noted with s ystolic flow reversal in the pulmonary veins. 5. [...] ventricle is chamber size (by vol index) isnormal (male - LVED vol - 34-74ml/m2). LV septal thickness is normal (0.6-1.1cm). LV posterior wallthickness is mildly increased (1.2-1.4cm) . All of [...] is mildly enlarged . Atrial Septum IV salinecontrast injection was negative for a PFO (patent foramen ovale) at rest and post Valsalva . Aortic Valve Normal AoV structure. Mild aortic regurgitation. Mitral Valve Endocardidits of the mitral valve. There is a large ehogenic mass attached to the posterior mitral valve leaflet. The mass measures 2.0 cm x 2.1 cm. Severe mitral regurgitation noted with systolic flow reversal in the pulmonary veins.Tricuspid Valve Dilation of the tricuspid annulus noted. Tricuspid valve leaflets appear normal. There is moderate to severe tricuspid regurgitation. Estimated peak systolic PA pressure is > 90 mmHgassuming RAP > 20 mm Hg. Pulmonic Valve [...] by IVC dynamics is > 20mmHg . Chambers/Structures Left Atrium LA Volume: 208.23 ml LA Area: 32.9 cm^2 LA Vol. Index: 100 ml/m^2 Left Ventricle LVIDd: 6.09 cm LVEDV:186.01 ml LV Septum Diastolic: 1.16 cm LV PW Diastolic: 1.26 cm LVEDV Suresh's:101.33 ml LVESV Suresh's:40.15 ml LVEF Suresh's: 60.4 % LVEDVI: 48 ml/m^2 LVESVI: 19 ml/m^2 LVOT Diameter: 1.86 cm Right Atrium RA Area: 29.39 cm^2 Right Ventricle RV Diast Dim.: 4.8 cm RV Systolic [...] LVOT SV:44.19 ml LVOT CO: 5.74 l/min LVOT CI: 2.75 l/min/m^2 Tricuspid Valve Estimated RAP: 20 mmHg TR Velocity: 4.25 m/s TR Gradient: 72.37 mmHg Pulmonic Valve Estimated PASP: 92.37 mmHgMission Bay campus2D Echo W/Doppler(CW/PW/Color) 2021-01-10 18:38:44Ejection FractionSLEH ECHO HEARTLAB MKCKESSON CPACSInterface, External Ris In - 01/10/2021 6:39 PM CDTTransthoracic Echocardiography Report (TTE) Demographics Patient Name CROW KAUR Date of Study 01/10/2021 SR. Gender Male Visit Number [id number] Race Unknown Room Number C826 Number Date of 1975 Referring Physician Taye Villatoro NP Age 45 year(s) Finisher Wallboard [employer] Plasterboard Estela Mann [facility] Training Engineer Radha Spence [facility] Interpreting Shama Duran MD Physician Procedure Type of Study TTE procedure:2DECHO W DOPPLER(CW/PW/COLOR) (Routine) Indications:Respir atory failure or hypoxemia .Clinical HistoryESRD, HTN, Mitral endocarditis, diastolic CHFHeight: 74 inches Weight: 83.01 kg (183 lbs) BSA: 2.09 m^2 BMI: 23.5 kg/m^2HR: 130 bpm BP: 103/77 mmHg Summary 1. The left ventricle is chamber size (by vol index) is normal (male - LVED vol - 34-74ml/m2). LV septal thickness is normal (0.6-1.1cm). LV posterior wall thickness is mildly increased (1.2-1.4cm) . Allof the LV segments contract normally . Global LV systolic function normal . LVEF by Suresh's methodof disk assessment is normal (60%) . 2. RV chamber size is moderately enlarged . Global RV systolic function is depressed. 3. LA size [...] 2.1 cm. Severe mitral regurgitation noted with sys tolic flow reversal in the pulmonary veins. 5. [...] regurgitation. Mitral Valve Endocardidits of the mitral valve.There is a large ehogenic mass attached to the posterior mitral valve leaflet. The mass measures 2.0 cm x 2.1 cm. Severe mitral regurgitation noted with systolic flow reversal in the pulmonary veins.Tricuspid Valve Dilation of the tricuspid annulus noted. Tricuspid valve leaflets appear normal. There is moderate to severe tricuspid regurgitation. Estimated peak systolic PA pressure is > 90 mmHgassuming RAP > 20 mm Hg. Pulmonic Valve [...] by IVC dynamics is > 20mmHg . Chambers/Structures Left Atrium LA Volume: 208.23 ml LA Area: 32.9 cm^2 LA Vol. Index: 100 ml/m^2 Left Ventricle LVIDd: 6.09 cm LVEDV:186.01 ml LV Septum Diastolic: 1.16 cm LV PW Diastolic: 1.26 cm LVEDV Suresh's:101.33 ml LVESV Suresh's:40.15 ml LVEF Suresh's: 60.4 % LVEDVI: 48 ml/m^2 LVESVI: 19 ml/m^2 LVOT Diameter: 1.86 cm Right Atrium RA Area: 29.39 cm^2 Right Ventricle RV Diast Dim.: 4.8 cm RV Systolic [...] Gradient: 5.46 mmHg Mean Velocity: 0.87 m/s MeanGradient: 3.39 mmHg LVOT Diameter: 1.86 cm LVOT VTI: 16.27 cm LVOT Area: 2.72 cm^2 LVOT SV:44.19 ml LVOT CO: 5.74 l/min LVOT CI: 2.75 l/min/m^2 Tricuspid Valve Estimated RAP: 20 mmHg TR Velocity: 4.25m/s TR Gradient: 72.37 mmHg Pulmonic Valve Estimated PASP: 92.37 mmHgCHI John George Psychiatric [id number] 17:13:00 Test Item Value Reference Range Interpretation Comments FIBRINOGEN LEVEL (BEAKER) (test 417 mg/dl 225-434 code = 658) [id number] 17:13:00 Test Item Value Reference Range Interpretation [...] CONCENTRATION Decreased (CELLAVISION)(BEAKER) (test code = 3438) Sales Enablement Consultant ID - JackAlley comments: Slide comments:PROTHROMBIN TIME/INR 2021-01-10 17:12:00 Test Item Value Reference Range Interpretation Comments PROTIME (BEAKER) 16.0 seconds 11.9-14.2 H (test code = 759) INR (BEAKER) (test 1.30 See_Comment [Automat ed message] code = 370) The system Zoondy generated this result transmitted ref erence range: <=5.90. The reference range was not used to int erpret this result as normal/abnormal . RECOMMENDED COUMADIN/WARFARIN INR THERAPY RANGESSTANDARD DOSE: 2.0 - 3.0 Includes: PROPHYLAXIS for venous thrombosis, systemic embolization; TREATMENT for venous thrombosis and/or pulmonary embolus.HIGH RISK: Target INR is 2.5-3.5 for patients with mechanical heart valves.Blood gas, [id number] 16:44:00 Test Item Value Reference Range Interpretation [...] code = 43 See_Comment H [Auto mated 9595-2) message] The sy stem which generated this result transmitted reference range : 25 - 40 mm Hg. The reference range was not used to interpret this result as normal/abnormal . O2 Sat, Roque (test code 71.2 % 40-70 H = 2711-0) HCO3, Roque (test code = 26 mmol/L 21-29 07320-5) Base Excess, Roque (test -1.3 mmol/L -2-3 code = 1927-3) Patient Temperature 37.3 (test code = 8310-5) FIO2 (test code = 1819) 50 Lab Interpretation Abnormal (test code = 45420-4) [facility] campusBlood gas, [id number] 16:44:00 Test Item Value Reference Range Interpretation [...] Roque (test code = 26 mmol/L 21-29 86734-7) Base Excess, Roque (test -1.3 mmol/L -2-3 code = 1927-3) Patient Temperature 37.3 (test code = 8310-5) FIO2 (test code = 1819) 50 Lab Interpretation Abnormal (test code = 43038-7) [facility] campusBlood gas, [id number] 16:44:00 Test Item Value Reference Range Interpretation [...] Roque (test code = 26 mmol/L 21-29 02339-2) Base Excess, Roque (test -1.3 mmol/L -2-3 code = 1927-3) Patient Temperature 37.3 (test code = 8310-5) FIO2 (test code = 1819) 50 Lab Interpretation Abnormal (test code = 33118-9) [facility] campusBLOOD GAS, [id number] 16:44:00 Test Item Value Reference Range Interpretation [...] FIO2 (BEAKER) (test code = 1819) 50.0 [id number] 16:42:00 Test Item Value Reference Range Interpretation Comments PHOSPHORUS (BEAKER) (test code = 10.1 mg/dL 2.3-4.7 HH 604) Sales Enablement Consultant ID - ADMINCOMPREHENSIVE METABOLIC [id number] 16:41:00 Test Item Value Reference Range Interpretation [...] S NOT APPLICABLE FOR DIALYSIS PATIEN TS. Sales Enablement Consultant ID - [id number] 16:30:00 Test Item Value Reference Range Interpretation Comments MAGNESIUM (BEAKER) (test code = 2.8 mg/dL 1.6-2.6 H 627) Sales Enablement Consultant ID - ADMINLactic acid, [id number] 16:25:00 Test Item Value Reference Range Interpretation Comments Lactate, Venous (test code 1.21 mmol/L 0.5-2.2 = 2872) CARLEY (test code = CARLEY) Sales Enablement Consultant ID - ADMIN Lab Interpretation (test Normal code = 82655-3) [facility] campusLactic acid, [id number] 16:25:00 Test Item Value Reference Range Interpretation Comments Lactate, Venous (test code 1.21 mmol/L 0.5-2.2 = 2872) CARLEY (test code = CARLEY) Sales Enablement Consultant ID - ADMIN Lab Interpretation (test Normal code = 70014-0) [facility] campusLactic acid, [id number] 16:25:00 Test Item Value Reference Range Interpretation Comments Lactate, Venous (test code 1.21 mmol/L 0.5-2.2 = 2872) CARLEY (test code = CARLEY) Sales Enablement Consultant ID - ADMIN Lab Interpretation (test Normal code = 16117-5) [facility] campusLACTIC ACID, [id number] 16:25:00 Test Item Value Reference Range Interpretation Comments LACTATE BLOOD VENOUS (2) (BEAKER) 1.21 mmol/L 0.50-2.20 (test code = 2872) Sales Enablement Consultant ID - ADMINCBC W/PLT COUNT & AUTO [id number] 16:13:00 Test Item Value Reference Range Interpretation [...] = 2801) RAD, CHEST, 1 VIEW, NON [id number] 16:00:00Reason for exam:->ETTShould this be performed at the bedside?->Yes [facility] 1975 Sex: MFINAL REPORT TECHNIQUE: Frontal view of the chest. INDICATION: ETT COMPARISON:None DISCUSSION:Limited evaluation due to portable technique. Lines and hardware: Endotracheal tube is identified with tip projecting 4.6 cm above the nitin. Subdiaphragmatic enteric tube is noted. OverlyingEKG leads are noted.Heart and mediastinum: Within normal limits for technique.Lungs and pleura: Multifocal bilateral airspace opacities are noted with a perihilar predominance. Negative for large effusion or pneumothorax.Soft tissues and bones: No acute abnormality. IMPRESSION:Multifocal bilateral perihilar predominant airspace opacities concerning for fluid overload/pulmonary edema versus multifocalpneumonia. Signed: Williams Garrett MDReport Verified Date/Time: 01/10/2021 16:00:56 [facility] POCT-GLUCOSE [id number] 15:13:00 Test Item Value Reference Range Interpretation Comments POC-GLUCOSE METER 114 mg/dL 70-110 H : TESTED A T [facility] 6720 (BERADHA) (test code = NORM [place] [facility], [place], 1538) [address]: Sales Enablement Consultant/Techni won ID = [id number] for NICK ABRAN ESPANA BREANNA, TUNNELED CATHETER [id number] 10:49:00FINAL REPORT TUNNELED DIALYSIS CATHETER PLACEMENT, UNDER FLUOROSCOPY History pro vided: Renal failure PROCEDURE: Informed consent was obtained. [...] complete thrombosis of the right internal jugular vein.After successfully identifying a patent left internal jugular vein , real- time ultrasound guidance was used to puncture the vessel. A permanent recording was created for the patient's record. Over a guidewire, a large peel-away sheath was placed. A 23 cm tip to cuff Duraflow catheter was tunneled froma left anterior chest wall approach and brought [...] MDReport Verified Date/Time: 02/03/2019 10:49:11 Reading Location: [place] [address] Angio Body ReadingRoom COMPREHENSIVE METABOLIC PANEL 2019-02-03 07:04:00 Test Item Value [...] (test code = 413) HEPATITIS B SURFACE [id number] 01:25:00 Test Item Value Reference Range Interpretation Comments HEPATITIS B SURFACE ANTIGEN (2) Nonreactive Nonreactive (BEAKER) (test code = 2585) BASIC METABOLIC [id number] 01:10:00 Test Item Value Reference Range Interpretation [...] S NOT APPLICABLE FOR DIALYSIS PATIEN TS. [id number] 01:03:00 Test Item Value Reference Range Interpretation Comments POTASSIUM (BEAKER) (test code = 5.4 meq/L 3.5-5.1 H 379) PROTHROMBIN [id number] 01:01:00 Test Item Value Reference Range Interpretation Comments PROTIME (BEAKER) (test code = 14.1 seconds 11.9-14.2 759) INR (BEAKER) (test code = 370) 1.1 <=5.9 Effective 11/05/2018: PT Reference Range ChangeNew: 11.9-14.2 Previous: 11.7- 14.7RECOMMENDED COUMADIN/WARFARIN INR THERAPY RANGESSTANDARD DOSE: 2.0-3.0 Includes: PROPHYLAXIS for venous thrombosis, systemic embolization; TREATMENT for venous thrombosis and/or pulmonary embolus.HIGH RISK: Target INR is 2.5-3.5 for patients wiht mechanical heart valves.BASIC METABOLIC [id number] 19:02:00 Test Item Value Reference Range Interpretation [...]
[2022-03-27 14:15] LABS: Absolute Lymphocytes (CBC) 1.1 K/uL (0.7-4.9); Hematocrit 27.3 % (39.6-49.0); Lymphocytes % 21.9 % (15.3-44.8); MCV 88.1 fL (80-100); MPV 8.3 fL (7.6-11.3)
[2022-03-27 14:17] LABS: Protime INR 1.61
[2022-03-27 14:38] LABS: Albumin 2.7 g/dL (3.4-5.0); Bilirubin Direct 0.3 mg/dL (0-0.2); Bilirubin Total 0.8 mg/dL (0.2-1.0); Magnesium 2.2 mg/dL (1.8-2.4); Protein, Total 6.1 g/dL (6.4-8.2)
[2022-03-27 14:40] LABS: Troponin High Sensitivity 128.3 pg/mL (<58.9)
[2022-03-27] MEDS ORDERED: NOREPINEPHRINE BITARTRATE/D5W 4 MG/250 ML BAG IV ONE (14:43)
--- NOTE | 2022-03-27 14:52 | RAD REPORT ---
EXAM DESCRIPTION: [facility] Single View03/27/2022 2:02 pm CLINICAL HISTORY: Chest pain COMPARISON: 2020 FINDINGS: Postsurgical changes involve the chest. Artifact overlies the chest. The lungs appear grossly clear of acute infiltrate. The heart is moderately enlarged
[2022-03-27 15:04] LABS: SARS-CoV-2 Antigen Rapid Res Negative (Negative)
[2022-03-27] MEDS ORDERED: VANCOMYCIN 1 GM/VIAL ONE (15:23)
[2022-03-27] MEDS ORDERED: GLUCAGON 1 MG/VIAL ONE (15:23)
[2022-03-27 15:24] LABS: Arterial Blood Carboxyhemoglob 1.7 % (0-1.5); Blood Gas Oxyhemoglobin 95.5 % (94-97); Blood O2 Saturation 98.6 % (92-98.5)
[2022-03-27] MEDS ORDERED: CEFEPIME 1 GM/VIAL ONE (15:24)
[2022-03-27] MEDS ORDERED: NA CHLORIDE 0.9% 250 ML ONE (15:24)
[2022-03-27] MEDS ORDERED: NA CHLORIDE 0.9% 100 ML IV ONE (15:24)
[2022-03-27] MEDS ORDERED: SOD POLYSTYREN SUL 15 GM/60 ML UCUP ONE (15:24)
[2022-03-27 16:14] LABS: Potassium 4.7 mmol/L (3.5-5.1)
[2022-03-27] MEDS ORDERED: MANNITOL 25% 12.5 GM/50 ML VIAL IV PRN (16:15)
[2022-03-27] MEDS ORDERED: NA CHLORIDE 0.9% 1,000 ML IV PRN (16:15)
--- NOTE | 2022-03-27 16:34 | EDPHYS ---
Physician Documentation [facility] Name: Jermaine Rivera Age: 46 yrs Sex: Male : 1975 Arrival Date: 03/27/2022 Time: 13:33 Bed 3 Private MD: ED Physician Riley Stovall HPI: 03/27 16:05 This 46 yrs old Black Male presents to ER via EMS with complaints of Blood Pressure iris Problem - and Low Heart Rate. 16:05 The patient has shortness of breath at rest. The patient has shortness of breath with iris light activity. Onset: The symptoms/episode began/occurred just prior to arrival. Duration: The symptoms are continuous, and are steadily getting worse. The patient's shortness of breath is aggravated by nothing, is alleviated by nothing, application of supplemental oxygen. AT DIALYSIS, GOT HYPOTENSIVE AND RUEL, AMS. The patient presents with confusion, decreased mental status. Possible causes: drug use, low blood sugar, seizure, sepsis, unknown. The patient presents with dizziness, feeling faint, generalized weakness, lightheadedness, a sense of confusion. Context: occurred DIALYSIS. Historical: - Allergies: 14:41 No Known Allergies; ph - PMHx: 14:41 Brain bleed; CVA; Dialysis; Hypertension; Renal Disease; ph - PSHx: 14:41 heart surgery valve replaced; ph - Immunization history:: Adult Immunizations unknown. - Social history:: Smoking status: unknown. - Family history:: not pertinent. ROS: 16:05 Eyes: Negative for injury, pain, redness, and discharge, Abdomen/GI: Negative for iris abdominal pain, nausea, vomiting, diarrhea, and constipation. 16:05 Constitutional: Positive for fatigue, malaise. 16:05 Cardiovascular: Positive for palpitations. 16:05 Respiratory: Positive for shortness of breath. Exam: 16:05 Constitutional: The patient appears in obvious distress, moderately distressed. iris 16:05 Cardiovascular: Rate: bradycardic, actual rate is 40 bpm, Rhythm: irregularly irregular, Pulses: Pulses are 2+ in bilateral radial, brachial, femoral, popliteal, posterior tibial and and dorsalis pedis arteries.. Heart sounds: normal, Edema: is not appreciated, JVD: is noted bilaterally, to the angle of the jaw. 16:05 ECG was reviewed by the Attending Physician. Vital Signs: 13:35 BP 74 / 56; Pulse 31; Resp 14; Pulse Ox 94% on R/A; ph 13:55 BP 69 / 50; Pulse 86; Resp 20; Pulse Ox 99% on 2 lpm NC; ph 14:15 BP 76 / 49; Pulse 78; Resp 22; Pulse Ox 100% on 2 lpm NC; ph 14:18 Weight 77.11 kg; Height 6 ft. 0 in. (182.88 cm); tp1 14:30 BP 75 / 51; Pulse 78; Resp 22; Pulse Ox 98% on 2 lpm NC; ph 14:57 BP 81 / 54; Pulse 79; Resp 18; Temp 92.2(C); Pulse Ox 100% on 2 lpm NC; ph 15:30 BP 85 / 53; Pulse 78; Resp 18; Pulse Ox 99% on 2 lpm NC; ph 16:00 BP 93 / 57; Pulse 77; Resp 24; Pulse Ox 100% on 2 lpm NC; ph 16:20 BP 93 / 59; Pulse 78; Resp 18; Temp 92.1(C); Pulse Ox 100% on 2 lpm NC; ph 16:54 BP 100 / 62; Pulse 77; Resp 22; Temp 92.1(C); Pulse Ox 100% on 2 lpm NC; ph 17:29 BP 92 / 60; Pulse 75; Resp 24; Temp 92.4; Pulse Ox 100% on 2 lpm NC; ph 18:00 BP 97 / 71; Pulse 74; Resp 22; Pulse Ox 98% on 2 lpm NC; ph 18:30 BP 92 / 64; Pulse 70; Resp 22; Pulse Ox 97% on 2 lpm NC; ph 18:35 BP 92 / 64; ph 18:35 BP 92 / 64; ph 19:00 BP 101 / 69; Pulse 69; Resp 20; Temp 93.4(C); Pulse Ox 100% on 2 lpm NC; ph 19:27 BP 100 / 72; Pulse 67; Resp 22 S; Temp 94.0(C); Pulse Ox 100% on R/A; as6 14:18 Body Mass Index 23.06 (77.11 kg, 182.88 cm) tp1 MDM: 13:33 Patient medically screened. iris 16:22 Differential diagnosis: Anemia asthma, CHF exacerbation, pneumonia, Pneumothorax iris pulmonary edema, reactive airway disease, Sepsis Unstable Angina. Antibiotic administration: CEFEPIME, VANCO. Differential Diagnosis altered mental status, sepsis. Differential Diagnosis: electrolyte abnormality, hypoglycemia, overdose, seizure, sepsis, cardiac arrhythmia, generalized weakness, GI bleed, hypovolemia, idiopathic dizziness, near-syncope, sepsis, TIA. The patient's Wells Deep Vein Thrombosis Score was calculated as follows: Total Score: 0-2 Pts- Low Risk. The patient's pulmonary embolism risk score was calculated as follows: Total Score: 0-2 points. This patient was found to be at low risk for a pulmonary embolism by using the Well's assessment criteria. Immunization status:. Data reviewed: vital signs, nurses notes, EMS record, lab test result(s), EKG, radiologic studies, plain films. Data interpreted: shelter monitor: rate is 78 beats/min, rhythm is atrial fibrillation, Pulse oximetry: on room air is 100 %. Test interpretation: by ED physician or midlevel provider: ECG, plain radiologic studies. Counseling: I had a detailed discussion with the patient and/or guardian regarding: the historical points, exam findings, and any diagnostic results supporting the discharge/admit diagnosis, lab results, radiology results, the need for further work-up and treatment in the hospital. 03/27 13:34 Order name: Basic Metabolic Panel; Complete Time: 15:31 iris 03/27 13:34 Order name: CBC with Diff; Complete Time: 14:20 iris 03/27 13:34 Order name: LFT's; Complete Time: 15:31 iris 03/27 13:34 Order name: Magnesium; Complete Time: 15:31 iris 03/27 13:34 Order name: NT PRO-BNP; Complete Time: 15:31 iris 03/27 13:34 Order name: PT-INR; Complete Time: 14:20 iris 03/27 13:34 Order name: Troponin HS; Complete Time: 15:31 iris 03/27 13:35 Order name: SARS RAPID; Complete Time: 15:31 iris 03/27 14:11 Order name: Lactate; Complete Time: 15:31 tp1 03/27 14:11 Order name: Blood Culture Adult (2) tp1 03/27 14:20 Order name: Glucose, Ancillary Testing; Complete Time: 14:27 EDMS 03/27 15:05 Order name: ABG Arterial Blood Gas; Complete Time: 15:31 EDMS 03/27 15:10 Order name: BMP: 315 PM; Complete Time: 16:35 iris 03/27 17:36 Order name: TSH ph 03/27 13:34 Order name: XRAY Chest (1 view); Complete Time: 15:31 iris 03/27 14:17 Order name: Echo w/ Doppler tp1 03/27 17:33 Order name: CT Head Brain wo Cont iris 03/27 17:36 Order name: T4 Free ph 03/27 17:47 Order name: Lactate Sepsis 2 HR Follow-up EDMS 03/27 17:54 Order name: Glucose, Ancillary Testing EDMS 03/27 18:16 Order name: CT EDMS 03/27 18:19 Order name: T4 Free EDMS 03/27 18:19 Order name: Thyroid Stimulating Hormone EDMS 03/27 18:31 Order name: Lipid Profile EDMS 03/27 18:37 Order name: Hemoglobin A1c EDMS 03/27 13:34 Order name: EKG; Complete Time: 13:35 iris 03/27 13:34 Order name: Cardiac monitoring; Complete Time: 14:13 iris 03/27 13:34 Order name: EKG - Nurse/Tech; Complete Time: 14:13 iris 03/27 13:34 Order name: IV Saline Lock; Complete Time: 14:13 iris 03/27 13:34 Order name: Labs collected and sent; Complete Time: 14:25 iris 03/27 13:34 Order name: O2 Per Protocol; Complete Time: 14:13 iris 03/27 13:34 Order name: O2 Sat Monitoring; Complete Time: 14:13 iris 03/27 13:34 Order name: IV Saline Lock - Large Bore; Complete Time: 14:10 iris 03/27 14:15 Order name: Ac; Complete Time: 14:57 [facility] EC:05 Rate is 40 beats/min. Rhythm is irregularly irregular. QRS [place] is Normal. WA interval iris is normal. QRS interval is normal. QT interval is normal. No Q waves. T waves are Normal. No ST changes noted. Clinical impression: Atrial Fibrillation. Interpreted by me. Reviewed by me. Administered Medications: 13:38 Drug: Atropine 1 mg Route: IVP; Site: right hand; ph 19:41 Follow up: Response: No adverse reaction ph 13:42 Drug: D50W 50 ml Route: IVP; Site: right femoral; ph 19:41 Follow up: Response: No adverse reaction ph 13:44 Drug: Calcium Gluconate 1 grams Route: IVPB; Infused Over: 10 mins; Site: left jugular; ph 14:00 Follow up: Response: No adverse reaction; IV Status: Completed infusion ph 13:44 Drug: Sodium Bicarbonate 25 mEq Route: IVP; Site: left jugular; ph 19:41 Follow up: Response: No adverse reaction ph 13:45 Drug: Albuterol - atroVENT (ipratropium) (3:1) (2.5 mg - 0.5 mg) 3 ml Route: Nebulizer; ph 17:30 Follow up: Response: No adverse reaction ph 13:45 Drug: Insulin Regular Human 10 units {Co-Signature: vg1 (Maisha Wagner RN).} Route: ph IVP; Site: left jugular; 19:39 Follow up: Response: No adverse reaction ph 13:50 Drug: DOPamine 5 mcg/kg/min {Note: started at 10 mcg/kg/min.} Route: IV; Rate: 10 ph mcg/kg/min; Site: right femoral; 13:55 Follow up: Rate change 20 mcg/kg/min ph 16:53 Follow up: Rate change 15 mcg/kg/min ph 17:27 Follow up: Rate change 10 mcg/kg/min ph 18:35 Follow up: BP 92 / 64; Rate change 5 mcg/kg/min ph 13:56 Drug: Sodium Bicarbonate 25 mEq Route: IVP; Site: left jugular; ph 19:39 Follow up: Response: No adverse reaction ph 14:00 Drug: Cefepime 1 grams Route: IVPB; Rate: 200 ml/hr; Infused Over: 30 mins; Site: right ph hand; 14:30 Follow up: Response: No adverse reaction; IV Status: Completed infusion ph 14:00 Drug: NS 0.9% 1000 ml Route: IV; Rate: 1 bolus; Site: left jugular; ph 19:40 Follow up: Response: No adverse reaction; IV Status: Completed infusion; IV Intake: ph 1000ml 14:30 Not Given (Duplicate Order): Lobo-Synephrine (phenylephrine) 0.5 mcg/kg/min IV at iris calculated rate See Administration Instructions; (Standard concentration 50 mg / 250 mL D5W); Recommended max rate 5 mcg/kg/min; Titrate 0.1 mcg/kg/min as often as every 5 minutes to achieve goal (see titration policy); Goal parameter MAP greater than 65 mmHg. 14:50 Drug: Levophed (norepinephrine) 0.1 mcg/kg/min {Note: started at 5mcg/min.} Route: IV; ph Rate: calculated rate; Site: right femoral; 17:00 Follow up: Rate change 4 mcg/kg/min ph 18:35 Follow up: BP 92 / 64; Rate change 3 mcg/kg/min ph 15:10 Not Given (Duplicate Order): NS 0.9% 1000 ml IV at 125 ml/hr continuous iris 15:45 Drug: GlucaGen (glucagon) 1 mg Route: IVP; Site: right hand; ph 19:37 Follow up: Response: No adverse reaction ph 16:00 Drug: Aspirin 81 mg Route: PO; ph 19:42 Follow up: Response: No adverse reaction ph 16:19 Drug: Kayexalate (polystyrene) 45 grams Route: PO; ph 19:37 Follow up: Response: No adverse reaction ph 16:40 Drug: vancoMYCIN 1 grams Route: IVPB; Infused Over: 2 hrs; Site: right hand; ss 18:40 Follow up: Response: No adverse reaction; IV Status: Completed infusion; IV Intake: ph 250ml 16:53 Drug: D10 in Water [2 mL/kg] 125 ml Route: IVP; Site: right hand; ph 19:36 Follow up: Response: No adverse reaction ph 17:30 Drug: D5W with Sodium Bicarbonate 100 mEq/L 1000 ml Route: IV; Rate: 100 ml/hr; Site: ph right hand; 19:36 Follow up: IV Status: Infusion continued upon admission ph 19:40 CANCELLED (pt received 1 liter total, documented as 1 liter boluss): NS 0.9% 500 ml IV ph at bolus once 19:41 Not Given (Other Intervention Used): Viscous Lidocaine Liquid (4 %) 5 ml Mucous ph Membrane once Disposition Summary: 03/27/22 16:34 Hospitalization Ordered Hospitalization Status: Inpatient Admission iris Provider: Alta Pace cha Location: Intensive Care Unit iris Condition: Serious iris Problem: new iris Symptoms: have improved iris Bed/Room Type: Standard iris Room Assignment: 7-(03/27/22 19:40) cg Diagnosis - Hypotension, unspecified iris - End stage renal disease - ON HD T,TH,SAT iris - Bradycardia, unspecified iris - Hyperkalemia iris - Anemia in other chronic diseases classified elsewhere iris - Anemia in chronic kidney disease iris - Severe sepsis with septic shock iris - Hypothermia, initial encounter iris Forms: - Medication Reconciliation Form iris - SBAR form iris Signatures: Dispatcher [employer] EDRiley Mueller MD MD cha Smirch, Shelby, RN RN ss Riri Patricia RN RN Rossy Wagner RN RN Maisha Wagner RN [email or web address] Corrections: (The following items were deleted from the chart) 14:40 14:15 EC Echo Doppler W/Color Flow+ECHO.RAD.BRZ ordered. EDMS EDMS 14:40 14:16 EC Echo Doppler W/Color Flow+ECHO.RAD.BRZ ordered. EDMS EDMS 19:40 13:34 NS 0.9% 500 ml IV at bolus once ordered. iris ph 19:40 14:21 NS 0.9% 500 ml IV at bolus once given. ph ph 19:40 19:40 NS 0.9% 500 ml IV at bolus once ordered. ph ph 19:40 16:34 iris cg
--- NOTE | 2022-03-27 16:34 | ER ---
Nurse's Notes [facility] Name: Jermaine Rivera Age: 46 yrs Sex: Male : 1975 Arrival Date: 03/27/2022 Time: 13:33 Bed 3 Private MD: Diagnosis: Hypotension, unspecified;End stage renal disease-ON HD T,,SAT;Bradycardia, unspecified;Hyperkalemia;Anemia in other chronic diseases classified elsewhere;Anemia in chronic kidney disease;Severe sepsis with septic shock;Hypothermia, initial encounter Presentation: 03/27 13:35 Onset of symptoms was March 27, 2022. ph 14:05 Chief complaint: EMS states: Arrived at dialysis and reported to staff there that he ph had been feeling bad for approx 40 minutes, BP was found to be low w/ systolic in 80s so staff called EMS, initial BP low and HR in 50, dropping in en route to ED as low as 30 bpm, 1 mg atropine given, 20 G IV to R hand. Pt awake but lethagic upon arrival to ED. Coronavirus screen: Vaccine status: Patient reports receiving the 2nd dose of the covid vaccine. Ebola Screen: No symptoms or risks identified at this time. Initial Sepsis Screen: Does the patient meet any 2 criteria? Systolic BP < 90 mmHg. No. Patient's initial sepsis screen is negative. Does the patient have a suspected source of infection? No. Patient's initial sepsis screen is negative. Risk Assessment: Do you want to hurt yourself or someone else? Patient reports no desire to harm self or others. 14:05 Acuity: FERNANDA 1 ph 14:05 Method Of Arrival: EMS: [facility] ph Triage Assessment: 13:33 General: Appears uncomfortable, slender, well groomed, Behavior is drowsy, restless, pt ph states, " Y'all please don't let me ." Reports that he was last dialyzed on Sat and they took off 3 liters of fluid. Normal dialysis days are //Sat. After placing pt on defibrillator pads HR noted to be low at 30 bpm and dropping, brief runs of asystole lasting approx 3-5 seconds then rate increases to 20's, staff assist button pushed and Dr Stovall at bedside, ACLS protocol medications given through R femoral dialysis access per Dr Stovall, see MAR. Pain: Denies pain. Neuro: Level of Consciousness is awake, lethargic, listless, Oriented to person, place, situation. Cardiovascular: Reports fatigue, lightheadedness, Denies chest pain. Cardiovascular: Dialysis shunt: in the right femoral area. Respiratory: Airway is patent. Derm: Skin is normal. Musculoskeletal: Circulation, motion, and sensation intact. Historical: - Allergies: 14:41 No Known Allergies; ph - PMHx: 14:41 Brain bleed; CVA; Dialysis; Hypertension; Renal Disease; ph - PSHx: 14:41 heart surgery valve replaced; ph - Immunization history:: Adult Immunizations unknown. - Social history:: Smoking status: unknown. - Family history:: not pertinent. Screenin:35 Abuse screen: Denies threats or abuse. Denies injuries from another. Nutritional ph screening: On. Tuberculosis screening: No symptoms or risk factors identified. Fall Risk None identified. Assessment: 15:07 Reassessment: Patient appears in no apparent distress at this time. Patient and/or ph family updated on plan of care and expected duration. Pain level reassessed. Neuro: Level of Consciousness is awake, obeys commands, lethargic, Oriented to person, place, situation. Cardiovascular: Capillary refill < 3 seconds in bilateral fingers Rhythm is sinus rhythm. Respiratory: Airway is patent Respiratory effort is even, unlabored. 16:19 Reassessment: Patient appears in no apparent distress at this time. Patient and/or ph family updated on plan of care and expected duration. Pain level reassessed. Pt remains drowsy, c/o feeing the urge to urinate, rodriguez catheter in place. 17:00 Reassessment: Patient appears in no apparent distress at this time. No changes from ph previously documented assessment. Family at bedside. 17:50 Reassessment: Accompanied pt to CT. ph Vital Signs: 13:35 BP 74 / 56; Pulse 31; Resp 14; Pulse Ox 94% on R/A; ph 13:55 BP 69 / 50; Pulse 86; Resp 20; Pulse Ox 99% on 2 lpm NC; ph 14:15 BP 76 / 49; Pulse 78; Resp 22; Pulse Ox 100% on 2 lpm NC; ph 14:18 Weight 77.11 kg; Height 6 ft. 0 in. (182.88 cm); tp1 14:30 BP 75 / 51; Pulse 78; Resp 22; Pulse Ox 98% on 2 lpm NC; ph 14:57 BP 81 / 54; Pulse 79; Resp 18; Temp 92.2(C); Pulse Ox 100% on 2 lpm NC; ph 15:30 BP 85 / 53; Pulse 78; Resp 18; Pulse Ox 99% on 2 lpm NC; ph 16:00 BP 93 / 57; Pulse 77; Resp 24; Pulse Ox 100% on 2 lpm NC; ph 16:20 BP 93 / 59; Pulse 78; Resp 18; Temp 92.1(C); Pulse Ox 100% on 2 lpm NC; ph 16:54 BP 100 / 62; Pulse 77; Resp 22; Temp 92.1(C); Pulse Ox 100% on 2 lpm NC; ph 17:29 BP 92 / 60; Pulse 75; Resp 24; Temp 92.4; Pulse Ox 100% on 2 lpm NC; ph 18:00 BP 97 / 71; Pulse 74; Resp 22; Pulse Ox 98% on 2 lpm NC; ph 18:30 BP 92 / 64; Pulse 70; Resp 22; Pulse Ox 97% on 2 lpm NC; ph 18:35 BP 92 / 64; ph 18:35 BP 92 / 64; ph 19:00 BP 101 / 69; Pulse 69; Resp 20; Temp 93.4(C); Pulse Ox 100% on 2 lpm NC; ph 19:27 BP 100 / 72; Pulse 67; Resp 22 S; Temp 94.0(C); Pulse Ox 100% on R/A; as6 14:18 Body Mass Index 23.06 (77.11 kg, 182.88 cm) tp1 Vitals: 14:57 Cardiac Rhythm Assessment Sinus rhythm. ph ED Course: 13:33 Patient arrived in ED. iris 13:33 Riley Stovall MD is Attending Physician. iris 13:44 Inserted saline lock: 18 gauge in left EJ, using aseptic technique. ,using aseptic ph technique. per Dr Stovall. Accessed Jame cath. to R femoral. 14:02 Inserted saline lock: 22 gauge in right hand, using aseptic technique. ph 14:03 XRAY Chest (1 view) In Process Unspecified. EDMS 14:05 Riri Patricia, CHRISTOPHE is Primary Nurse. ph 14:10 Triage completed. ph 14:15 Oxygen administration via nasal cannula \\T\\ 2L/min. ph 14:35 Rodriguez cath inserted, using sterile technique, 16 Fr., by ED staff, balloon inflated, to ph gravity drainage, other no urine output at this time, criticore catheter placed. 14:40 Patient has correct armband on for positive identification. Placed in gown. Bed in low ph position. Call light in reach. Side rails up X2. Client placed on continuous cardiac and pulse oximetry monitoring. NIBP monitoring applied. Warm blanket given. Verbal reassurance given. 14:41 Arm band placed on Patient placed in an exam room, on a stretcher, on oxygen, on ph school lunch monitor, on pulse oximetry. 14:50 Thermoregulation: Janet blanket applied. ph 16:26 Alta Pace MD is Hospitalizing Provider. [facility] 19:17 Primary Nurse role handed off by Riri Patricia RN mw2 19:27 Omar Benson RN is Primary Nurse. as6 19:44 No provider procedures requiring assistance completed. Patient admitted, IV remains in ph place. Administered Medications: 13:38 Drug: Atropine 1 mg Route: IVP; Site: right hand; ph 19:41 Follow up: Response: No adverse reaction ph 13:42 Drug: D50W 50 ml Route: IVP; Site: right femoral; ph 19:41 Follow up: Response: No adverse reaction ph 13:44 Drug: Calcium Gluconate 1 grams Route: IVPB; Infused Over: 10 mins; Site: left jugular; ph 14:00 Follow up: Response: No adverse reaction; IV Status: Completed infusion ph 13:44 Drug: Sodium Bicarbonate 25 mEq Route: IVP; Site: left jugular; ph 19:41 Follow up: Response: No adverse reaction ph 13:45 Drug: Albuterol - atroVENT (ipratropium) (3:1) (2.5 mg - 0.5 mg) 3 ml Route: Nebulizer; ph 17:30 Follow up: Response: No adverse reaction ph 13:45 Drug: Insulin Regular Human 10 units {Co-Signature: vg1 (Maisha Wagner RN).} Route: ph IVP; Site: left jugular; 19:39 Follow up: Response: No adverse reaction ph 13:50 Drug: DOPamine 5 mcg/kg/min {Note: started at 10 mcg/kg/min.} Route: IV; Rate: 10 ph mcg/kg/min; Site: right femoral; 13:55 Follow up: Rate change 20 mcg/kg/min ph 16:53 Follow up: Rate change 15 mcg/kg/min ph 17:27 Follow up: Rate change 10 mcg/kg/min ph 18:35 Follow up: BP 92 / 64; Rate change 5 mcg/kg/min ph 13:56 Drug: Sodium Bicarbonate 25 mEq Route: IVP; Site: left jugular; ph 19:39 Follow up: Response: No adverse reaction ph 14:00 Drug: Cefepime 1 grams Route: IVPB; Rate: 200 ml/hr; Infused Over: 30 mins; Site: right ph hand; 14:30 Follow up: Response: No adverse reaction; IV Status: Completed infusion ph 14:00 Drug: NS 0.9% 1000 ml Route: IV; Rate: 1 bolus; Site: left jugular; ph 19:40 Follow up: Response: No adverse reaction; IV Status: Completed infusion; IV Intake: ph 1000ml 14:30 Not Given (Duplicate Order): Lobo-Synephrine (phenylephrine) 0.5 mcg/kg/min IV at iris calculated rate See Administration Instructions; (Standard concentration 50 mg / 250 mL D5W); Recommended max rate 5 mcg/kg/min; Titrate 0.1 mcg/kg/min as often as every 5 minutes to achieve goal (see titration policy); Goal parameter MAP greater than 65 mmHg. 14:50 Drug: Levophed (norepinephrine) 0.1 mcg/kg/min {Note: started at 5mcg/min.} Route: IV; ph Rate: calculated rate; Site: right femoral; 17:00 Follow up: Rate change 4 mcg/kg/min ph 18:35 Follow up: BP 92 / 64; Rate change 3 mcg/kg/min ph 15:10 Not Given (Duplicate Order): NS 0.9% 1000 ml IV at 125 ml/hr continuous iris 15:45 Drug: GlucaGen (glucagon) 1 mg Route: IVP; Site: right hand; ph 19:37 Follow up: Response: No adverse reaction ph 16:00 Drug: Aspirin 81 mg Route: PO; ph 19:42 Follow up: Response: No adverse reaction ph 16:19 Drug: Kayexalate (polystyrene) 45 grams Route: PO; ph 19:37 Follow up: Response: No adverse reaction ph 16:40 Drug: vancoMYCIN 1 grams Route: IVPB; Infused Over: 2 hrs; Site: right hand; ss 18:40 Follow up: Response: No adverse reaction; IV Status: Completed infusion; IV Intake: ph 250ml 16:53 Drug: D10 in Water [2 mL/kg] 125 ml Route: IVP; Site: right hand; ph 19:36 Follow up: Response: No adverse reaction ph 17:30 Drug: D5W with Sodium Bicarbonate 100 mEq/L 1000 ml Route: IV; Rate: 100 ml/hr; Site: ph right hand; 19:36 Follow up: IV Status: Infusion continued upon admission ph 19:40 CANCELLED (pt received 1 liter total, documented as 1 liter boluss): NS 0.9% 500 ml IV ph at bolus once 19:41 Not Given (Other Intervention Used): Viscous Lidocaine Liquid (4 %) 5 ml Mucous ph Membrane once Medication: 14:41 VIS not applicable for this client. ph Intake: 18:40 IV: 250ml; Total: 250ml. ph 19:40 IV: 1000ml; Total: 1250ml. ph Outcome: 16:34 Decision to Hospitalize by Provider. iris 20:41 Patient left the ED. mw2 Signatures: Dispatcher [employer] EDMS Riley Stovall MD MD cha Smirch, Shelby RN RN Riri Ghosh RN RN Mauri Baron mw2 Omar Benson RN RN as6 Ana Coates RN RN tp1 Maisha Wagner RN vg1 Corrections: (The following items were deleted from the chart) 14:56 14:50 Levophed (norepinephrine) 0.1 mcg/kg/min IV at calculated rate in right femoral phph 19:40 13:37 NS 0.9% 500 ml IV at bolus in right hand ph ph 19:41 14:30 Response: No adverse reaction; IV Status: Completed infusion; IV Intake: 500ml ph ph
[2022-03-27] MEDS ORDERED: D10W 250 ML IV ONE (16:38)
[2022-03-27] MEDS ORDERED: ALBUMIN HUMAN 25% 50 ML IV SCH (17:00)
[2022-03-27] MEDS ORDERED: EPOETIN ALFA-EPBX 10,000 UNIT/ML VIAL SQ ONE (17:00)
[2022-03-27] MEDS ORDERED: D5W 1,000 ML with NA BICARB 8.4% 100 MEQ IV ONE ×2 (17:00)
[2022-03-27] MEDS ORDERED: ONDANSETRON 4 MG/2 ML VIAL IV PRN (17:51)
[2022-03-27] MEDS: ASPIRIN EC 81 MG TAB PO SCH (18:00)
[2022-03-27] MEDS ORDERED: NOREPINEPHRINE BITARTRATE/D5W 4 MG/250 ML BAG IV SCH (18:00)
--- NOTE | 2022-03-27 18:06 | P.HP ---
Certification for Inpatient Patient admitted to: Inpatient With expected LOS: >2 Midnights Patient will require the following post-hospital care: None Practitioner: I am a practitioner with admitting privileges, knowledge of patient current condition, hospital course, and medical plan of care. Services: Services provided to patient in accordance with Admission requirements found in Title 42 Section 412.3 of the Code of Federal Regulations Patient History Date of Service: 03/27/22 Reason for admission: Hypotension and bradycardia History of Present Illness: Patient is a 46-year-old male with a past medical history significant for CVA, hypertension, ESRD, Afib, CHF who presents with complaint of hypotension and bradycardia. Patient currently obtunded and unable to provide any meaningful history. Per family reports, patient was noted to be weak and unable to ambulate this morning. Patient's son indicated that patient was able to go to dialysis today and when his vital signs were checked, patients heart rate was low--in the 40s and SBP was in the 50s. No other signs and symptoms reported. Symptoms are aggravated or relieved by nothing. Patient was brought to the hospital for medical evaluation. Of note, per family reported that patient's last dialysis was on last week . Allergies No Known Allergies Allergy (Verified 11/03/21 09:32) Home Medications: Hydralazine HCl [Apresoline] 25 mg PO TID 11/04/17 Nifedipine [Nifedipine ER] 60 mg PO DAILY 11/04/17 Sevelamer HCl [Renagel] 800 mg PO TID 02/04/18 Amiodarone HCl [Pacerone] 100 mg PO DAILY 07/31/21 Bupropion *Xl* [Wellbutrin XL*] 150 mg PO DAILY 07/31/21 Carvedilol [Coreg] 25 mg PO BID 07/31/21 Gabapentin 100 mg PO BID 07/31/21 Losartan Potassium 50 mg PO DAILY 07/31/21 Pantoprazole [Protonix Tab*] 40 mg PO DAILY 07/31/21 Warfarin Sodium [Coumadin*] 5 mg PO DAILY 07/31/21 cloNIDine HCL [Catapres] 0.3 mg PO TID 07/31/21 - Past Medical/Surgical History Diabetic: No -: Hypertension -: End-stage renal disease -: Diastolic CHF -: Anemia of chronic disease -: Thrombocytopenia -: pulmonary edema -: hx-afib- resolved -: Dialysis access placement-rt chest wall -: dialysis access-right chest wall Psychosocial/ Personal History: The patient is single. He has 9 children. He does not work. He recently got out of half-way in May of 2016. - Family History Mother -: Heart disease - Social History Smoking Status: Unknown if ever smoked Alcohol use: No CD- Drugs: No Caffeine use: Yes Place of Residence: Home Review of Systems is unable to be obtained (Patient obtunded. Unable to assess.) Physical Examination - Physical Exam General: Oriented x1, Other (Obtunded) HEENT: Atraumatic, Normocephalic, PERRLA Neck: Supple, 2+ carotid pulse no bruit, JVD not distended Respiratory: Clear to auscultation bilaterally, Diminished Cardiovascular: No edema Capillary refill: <2 Seconds Gastrointestinal: Normal bowel sounds, Soft and benign Musculoskeletal: No clubbing, No swelling Integumentary: No rashes, No breakdown, No significant lesion Neurological: Normal tone, Normal affect Lymphatics: No axilla or inguinal lymphadenopathy - Studies Laboratory Data (last 24 hrs) 03/27/22 15:51: Sodium 139, Potassium 4.7 D, BUN 112 H, Creatinine 16.80 H*, Glucose 66 L 03/27/22 14:00: PT 17.7 H, INR 1.61 03/27/22 14:00: WBC 5.00, Hgb 8.9 L, Hct 27.3 L, Plt Count 137 L 03/27/22 14:00: Sodium 136, Potassium 7.0 H*, BUN 110 H, Creatinine 16.40 H*, Glucose 170 H, Magnesium 2.2, Total Bilirubin 0.8, AST 43 H, ALT 42, Alkaline Phosphatase 68 Assessment and Plan - Plan --Hypotension. Patient given IV hydration and was placed on norepinephrine drip in the ER. Nephrology consulted. We will await further recommendations. --Bradycardia. Patient given dopamine drip in the ER. Heart rate responded appropriately. Cardiology consulted. Telemetry to monitor for any significant arrhythmia. Will await further recommendations. -- ESRD. Nephrology on board. Further management per hardware designer. --History of CVA. Continue aspirin and warfarin when appropriate. --Paroxysmal A. fib. Continue warfarin when appropriate. -- Acute on chronic diastolic CHF exacerbation. Daily weight. Patient on hemodialysis. Further management per hardware designer. --Hyperkalemia. Patient given calcium gluconate\Kayexalate in the ER. Repeat levels indicates resolution. --GERD. Continue Protonix. --Anemia of chronic disease. H&H stable. We will continue to monitor hemoglobin and transfuse if less than 7.0. --Thrombocytopenia. Continue supportive care. --Hypocalcemia. Further management per hardware designer. --DVT prophylaxis with heparin subQ. Discharge Plan: Home - Advance Directives Does patient have a Living Will: No Does patient have a Durable POA for Healthcare: No - Code Status/Comfort Care Code Status Assessed: Yes Code Status: Full Code Physician Review: Patient Assessed, Agree with Above Assessment and Plan Critical Care: No
--- NOTE | 2022-03-27 18:14 | RAD REPORT ---
EXAM DESCRIPTION: CT - Head Brain Wo Cont - 03/27/2022 6:07 pm CLINICAL HISTORY: Alteration of awareness/confusion COMPARISON: July 2021 TECHNIQUE: Computed axial tomography of the head was obtained. IV contrast was not requested. All CT scans are performed using dose optimization technique as appropriate and may include automated exposure control or mA/KV adjustment according to patient size. FINDINGS: An acute intracranial bleed is not seen . The ventricles are normal in caliber. No extra-axial fluid collection is noted. 2.7 centimeter low-density area left parietal lobe probably cystic encephalomalacia secondary to an o ld infarct. Old lacunar infarct left thalamus Fluid within the sinuses/ mastoids is not seen. IMPRESSION: No acute intracranial abnormality is seen. If patient's symptoms persist MRI of the bra in would be recommended.
[2022-03-27] MEDS ORDERED: DOPAMINE/D5W 400 MG/250 ML BAG IV SCH (18:15)
[2022-03-27 18:19] LABS: Thyroid Stimulating Hormone 3.05 uIU/mL (0.360-3.740)
[2022-03-27] MEDS ORDERED: SODIUM CHLORIDE 0.9% 10ML INJ IV PRN (20:40)
[2022-03-27 20:56] LABS: Absolute Lymphocytes (CBC) 0.5 K/uL (0.7-4.9); Hematocrit 24.9 % (39.6-49.0); Lymphocytes % 11.7 % (15.3-44.8); MCV 88.1 fL (80-100); MPV 8.1 fL (7.6-11.3); RBC Red Blood Cell Count 2.82 M/uL (4.33-5.43)
[2022-03-27] MEDS: PANTOPRAZOLE 40 MG INJ IVP SCH (21:07)
[2022-03-27 21:12] LABS: Protime INR 1.71
[2022-03-27 21:28] LABS: Phosphorus 8.7 mg/dL (2.5-4.9); Thyroid Stimulating Hormone 3.42 uIU/mL (0.360-3.740)
[2022-03-27 21:29] LABS: Potassium 6.3 mmol/L (3.5-5.1)
[2022-03-27] MEDS ORDERED: EPOETIN ALFA-EPBX 10,000 UNIT/ML VIAL ONE (21:42)
[2022-03-27 22:15] VITALS: BMI 22.4
--- NOTE | 2022-03-28 06:56 | ECHO ---
HEIGHT: 6 ft 1 in WEIGHT: 169 lb 15.975 oz DATE OF STUDY: 03/22/[address]: Riley Stovall MD 2-DIMENSIONAL: YES M.MODE: YES DOPPLER: YES COLOR FLOW: YES TDS: PORTABLE: YES DEFINITY: BUBBLE STUDY: DIAGNOSIS: CHEST PAIN CARDIAC HISTORY: CATHERIZATION: YES SURGERY: YES PROSTHETIC VALVE: NO PACEMAKER: NO MEASUREMENTS (cm) DIASTOLIC (NORMALS) SYSTOLIC (NORMALS) IVSd 1.9 (0.6-1.2) LA Diam 5.6 (1.9-4.0) LVEF 55% LVIDd 4.4 (3.5-5.7) LVIDs 3.7 (2.0-3.5) %FS % LVPWd 1.6 (0.6-1.2) Ao Diam 3.0 (2.0-3.7) 2 DIMENSIONAL ASSESSMENT: RIGHT ATRIUM: NORMAL LEFT ATRIUM: ENLARGED RIGHT VENTRICLE: NORMAL LEFT VENTRICLE: SEVERE LEFT VENTRICULAR HYPERTROPHY TRICUSPID VALVE: SEVERE TRICUSPID REGURGITATION MITRAL VALVE: MECHANICAL PROSTHESIS PULMONIC VALVE: MILD PULMONIC INSUFFICIENCY AORTIC VALVE: MILD AORTIC INSUFFICIENCY PERICARDIAL EFFUSION: NONE AORTIC ROOT: NORMAL LEFT VENTRICULAR WALL MOTION: NORMAL DOPPLER/COLOR FLOW: SEE BELOW COMMENTS: NORMAL LEFT VENTRICULAR EJECTION FRACTION 55-60% WITH NORMAL WALL MOTION. SEVERE CONCENTRIC LEFT VENTRICULAR HYPERTROPHY. LEFT ATRIAL ENLARGEMENT. MODERATE TO SEVERE TRICUSPID REGURGITATION. MILD AORTIC INSUFFICIENCY/ MILD PULMONIC INSUFFICIENCY. MITRAL VALVE MECHANICAL PROSTHESIS IS PRESENT AND FUNCTIONING WELL. TECHNOLOGIST: SHAILESH IZQUIERDO
[2022-03-28] MEDS: ASPIRIN EC 81 MG TAB PO SCH (08:19)
[2022-03-28] MEDS: CLONIDINE HCL 0.3 MG TAB PO SCH ×2 (08:19→15:08)
[2022-03-28] MEDS: PANTOPRAZOLE 40 MG INJ IVP SCH (08:21)
[2022-03-28 08:25] LABS: Hematocrit 25.8 % (39.6-49.0); MCV 88.1 fL (80-100); MPV 8.1 fL (7.6-11.3); RBC Red Blood Cell Count 2.93 M/uL (4.33-5.43)
[2022-03-28 08:37] LABS: Phosphorus 6.2 mg/dL (2.5-4.9); Potassium 4.5 mmol/L (3.5-5.1)
[2022-03-28] MEDS ORDERED: AMIODARONE HCL 200 MG TAB PO SCH (09:00)
[2022-03-28 09:33] VITALS: TEMP 98.6
[2022-03-28] MEDS ORDERED: HYDRALAZINE HCL 20 MG/ML VIAL IV ONE (10:39)
[2022-03-28] MEDS ORDERED: carvediloL 25 MG TAB PO SCH (10:40)
--- NOTE | 2022-03-28 14:27 | P.CNS ---
Date of Consult: 03/28/22 Reason for Consult: ESRD, hyperkalemia, missed dialysis Requesting Physician: Abilio Washington Chief Complaint: Hypotension and bradycardia History of Present Illness: Patient is a 46-year-old AA male with a past medical history significant for malignant hypertension, ESRD on HD, parox Afib, hypertensive cardiomyopathy, valvular heart disease who presented to the ER yesterday with hypotension and bradycardia per reports. Pt claims he dialyzed last on Sat but need to clarify records with his OP [facility] dialysis unit. Pt does have a hx of missed or shortened treatments. Pt was found to be severely hyperkalemia and received emergent HD in the unit however pressors that were initiated briefly were quickly stopped and hemodynamics improved post HD and pt was hypertensive this morning. He denies CP or dyspnea when seen. Allergies No Known Allergies Allergy (Verified 11/03/21 09:32) Home Medications: Hydralazine HCl [Apresoline] 25 mg PO PRN 11/04/17 Nifedipine [Nifedipine ER] 60 mg PO DAILY 11/04/17 Sevelamer HCl [Renagel] 800 mg PO TID 02/04/18 Amiodarone HCl [Pacerone] 100 mg PO DAILY 07/31/21 Bupropion *Xl* [Wellbutrin XL*] 150 mg PO DAILY 07/31/21 Carvedilol [Coreg] 25 mg PO BID 07/31/21 Gabapentin 100 mg PO BID 07/31/21 Losartan Potassium 50 mg PO DAILY 07/31/21 Pantoprazole [Protonix Tab*] 40 mg PO DAILY 07/31/21 Warfarin Sodium [Coumadin*] 5 mg PO DAILY 07/31/21 cloNIDine HCL [Catapres] 0.3 mg PO TID 07/31/21 - Past Medical/Surgical History Diabetic: No -: Hypertension -: End-stage renal disease -: Diastolic CHF -: Anemia of chronic disease -: Thrombocytopenia -: pulmonary edema -: hx-afib- resolved -: Dialysis access placement-rt chest wall -: dialysis access-right chest wall -: left upper arm fistula placed december 2021 Psychosocial/ Personal History: The patient is single. He has 9 children. He does not work. He recently got out of half-way in May of 2016. - Family History Mother Medical History: Heart disease, Hypertension Brother Medical History: Hypertension - Social History Smoking Status: Unknown if ever smoked Alcohol use: Yes CD- Drugs: Yes Caffeine use: No Place of Residence: Home Review of Systems General: Weakness Eyes: Unremarkable ENT: Unremarkable Respiratory: Shortness of Breath Cardiovascular: Unremarkable Gastrointestinal: Unremarkable Genitourinary: Unremarkable Musculoskeletal: Unremarkable Integumentary: Unremarkable Neurological: Unremarkable Lymphatics: Unremarkable Physical Examination Temp Pulse Resp BP Pulse Ox 98.6 F 65 24 H 163/116 H 93 03/28/22 08:00 03/28/22 10:54 03/28/22 09:00 03/28/22 10:54 03/28/22 09:00 General: Alert, In no apparent distress, Oriented x3 HEENT: Atraumatic, Normocephalic, PERRLA, EOMI Neck: Supple Respiratory: Clear to auscultation bilaterally, Normal air movement Cardiovascular: Regular rate/rhythm, Normal S1 S2, Other (Valve click sound, cardiac murmur present, Lt UE AVF difficult to appreciate thrill or bruit, Rt fem TDC) Gastrointestinal: Soft and benign, Non-distended, No tenderness Musculoskeletal: No swelling, No contractures, No erythema Integumentary: No rashes Neurological: Normal speech, Normal tone, Normal affect Laboratory Data (last 24 hrs) 03/27/22 15:51: Sodium 139, Potassium 4.7 D, BUN 112 H, Creatinine 16.80 H*, Glucose 66 L 03/27/22 14:00: Sodium 136, Potassium 7.0 H*, BUN 110 H, Creatinine 16.40 H*, Glucose 170 H, Magnesium 2.2, Total Bilirubin 0.8, AST 43 H, ALT 42, Alkaline Phosphatase 68 Conclusions/Impression: 1. ESRD 2. Hyperkalemia 3. Azotemia 4. Metab acidosis 5. Hypotension followed by accelerated HTN 6. Hypertensive cardiomyopathy -Repeating HD today for metab clearance and UF. -Dialyzing again with low K bath -No UF performed on HD last night due to hemodynamic instability, but targeting 3L on HD this afternoon as BP accelerated. -Resume home meds, bradycardia likely due to hyperkalemia but monitor closely on Clonidine. F/u post HD BP -Obtain vascular u/s of the Lt UE AVF to assess patency of Lt UE AVF placed a few month ago, used only one on 1:1 stick recently, pt had delayed f/u with surgeon to okay proceed with cannulation but exam today is concerning as there is no appreciable thrill or bruit. Thank you for the referral, Fausto Morley MD, CLEVE
--- NOTE | 2022-03-28 15:07 | CON ---
Date of Consultation: 03/28/2022 Reason For Consultation: Bradycardia. History Of Present Illness: This is a 46-year-old male with history of end-stage renal disease on he modialysis. Currently, he was sent into the emergency room due to significant bradycardia in the [facility] room, was sinus chevy as per the ER, and he was started on dopamine drip, and his heart rate r esponds to that, but his potassium was significantly elevated after dialysis and correction of potass ium. His heart rate is up now. He is off the dopamine. His blood pressure is normal and his heart rate is in the mid 80s. Patient has no complaints. Past Medical History: CVA, hypertension, end-stage renal disease, atrial fibrillation, congestive he art failure. Past Surgical History: As outlined above in the HPI. Medications: Refer reconciliation sheet for detailed list. Allergies: NO KNOWN DRUG ALLERGIES. Family History: No premature coronary artery disease or cancer. Social History: Does not drink or use any drugs. Does not smoke. Review of Systems: All systems reviewed and they were negative except as mentioned in the HPI. Physical Examination: Vital Signs: Temperature is 98.6, pulse 65, breathing at 24, and blood pressure is 163/116, saturati ng 97% room air. General: Pleasant young male, in no distress. Head and Neck: Pupils are equal, reactive to light. Intact eye movements. No JVD. No cervical lym phadenopathy. Neck: Supple. Thyroid is not enlarged. Lungs: Clear to auscultation bilaterally. No rhonchi, rales, or crackles. No accessory muscle use. Heart: Regular rate and rhythm. No extra sounds. Abdomen: Soft, nontender. Bowel sounds positive. No organomegaly. No masses or hernia. No rigidi ty or rebound. Extremities: No clubbing, cyanosis. Intact pulses. Skin: No rash. Neurologic: Alert, awake, and oriented x3. No acute focal deficits appreciated. Investigations: Troponin was 128. Assessment And Recommendation: 1.Bradycardia, probably due to the hypokalemia, as potassium was 7. After dialysis and potassium no rmalization, patient's heart rate is better, and also, he has taken multiple medications that are con trolling his rate, so recommended to decrease the Coreg to 12.5 mg twice a day while he is being samuel tored in the hospital and decrease further if needed. 2.End-stage renal disease on hemodialysis, status post dialysis in-house. 3.Elevated troponin. No chest pain. No in-house workup is recommended. However, we will plan to f ollow up with the patient as outpatient and do a stress test. /MODL Voice ID: [id number] Report ID: [id number]
[2022-03-28 15:09] VITALS: BP 123/111
[2022-03-28] MEDS ORDERED: D50W 25 GM/50 ML SYRINGE IV ONE (15:32)
[2022-03-28] MEDS ORDERED: ATROPINE SULF 1 MG/10 ML SYR IV ONE (15:32)
[2022-03-28] MEDS ORDERED: DOPAMINE 400 MG/250ML D5W PREMIX IV ONE (15:32)
[2022-03-28 16:22] VITALS: O2SAT 100
--- NOTE | 2022-03-28 16:35 | EKG ---
Test Date: 2022-03-27 Test Time: 13:35:25 Bell Cleaner: VINNY MEASUREMENT RESULTS: Intervals: Rate: 40 IL: QRSD: 140 QT: 560 QTc: 456 Upper Tract: P: IL: QRS: -52 T: 82 INTERPRETIVE STATEMENTS: Sinus bradycardia Left axis deviation Nonspecific intraventricular block Inferior infarct, age undetermined Abnormal ECG Compared to ECG 07/31/2021 06:36:43 First degree AV block no longer present Myocardial infarct finding still present Electronically Signed On 03-28-22 16:34:24 CDT by Yaw Curran
== END 2022-03-28 15:33 | disposition left against medical advice (07) | DRG 640 ==
LOC: ER 13:20 → ERHOLD 16:52 → 3RD-ICU 20:31
PROVIDERS: ADMIT Hospitalist; ATTEND Hospitalist
PROC: 5A1D70Z Performance of Urinary Filtration, Intermittent, Less than 6 Hours Per Day (ICD-10-PCS; principal; 2022-03-27)
DX: E87.5 Hyperkalemia (principal); D66 Hereditary factor VIII deficiency; I50.33 Acute on chronic diastolic (congestive) heart failure; N18.6 End stage renal disease; I13.2 Hypertensive heart and chronic kidney disease with heart failure and with stage 5 chronic kidney disease, or end stage renal disease; I43 Cardiomyopathy in diseases classified elsewhere; D63.1 Anemia in chronic kidney disease; I95.9 Hypotension, unspecified; I48.0 Paroxysmal atrial fibrillation; K21.9 Gastro-esophageal reflux disease without esophagitis; E87.20 Acidosis, unspecified; E83.51 Hypocalcemia; D63.8 Anemia in other chronic diseases classified elsewhere; R00.1 Bradycardia, unspecified; R77.8 Other specified abnormalities of plasma proteins; R68.0 Hypothermia, not associated with low environmental temperature; R79.89 Other specified abnormal findings of blood chemistry; Z99.2 Dependence on renal dialysis; Z95.2 Presence of prosthetic heart valve; Z79.01 Long term (current) use of anticoagulants; Z79.82 Long term (current) use of aspirin; Z53.29 Procedure and treatment not carried out because of patient's decision for other reasons; Z86.73 Personal history of transient ischemic attack (TIA), and cerebral infarction without residual deficits; Z79.899 Other long term (current) drug therapy; Z20.822 Contact with and (suspected) exposure to COVID-19
CPT/HCPCS: 36415; 51702; 70450; 71045; 80048; 80061; 80076; 82805; 82947; 83036; 83605; 83735; 83880; 84100; 84439; 84443; 84484; 85025; 85027; 85610; 87040; 87811; 90935; 93005; 93306; 94640; 99291; 99292; C9113; J0360; J0610; J0692; J1265; J1610; J1644; J1815; J3370; J7030; J7040; J7050; Q5106

== ENCOUNTER 2022-10-17 07:27 | Emergency (ER) | payer OTHER ==
[2022-10-17] MEDS ORDERED: D50W 25 GM/50 ML SYRINGE IV ONE (07:28)
[2022-10-17] MEDS ORDERED: EPINEPHrine 1 MG/10 ML SYR IV ONE (07:28)
[2022-10-17] MEDS ORDERED: Calcium Chloride 10% INJ SYR IV ONE ×2 (07:28→08:48)
[2022-10-17 07:52] LABS: Absolute Lymphocytes (CBC) 1.2 K/uL (0.7-4.9); Hematocrit 31.3 % (39.6-49.0); Lymphocytes % 17.4 % (15.3-44.8); MCV 92.3 fL (80-100); MPV 7.3 fL (7.6-11.3); RBC Red Blood Cell Count 3.39 M/uL (4.33-5.43)
[2022-10-17 07:58] LABS: Protime INR 1.95
[2022-10-17 08:06] LABS: Arterial Blood Carboxyhemoglob 0.5 % (0-1.5); Blood Gas Oxyhemoglobin 96.8 % (94-97); Blood O2 Saturation 98.8 % (92-98.5)
--- NOTE | 2022-10-17 08:13 | RAD REPORT ---
EXAM DESCRIPTION: RAD - Chest Single View - 10/17/2022 8:00 am CLINICAL HISTORY: cardiac arrest COMPARISON: Chest Single View dated 03/27/2022; Abdomen 1 View (KUB) dated 01/09/2021; Chest Single Vi ew dated 01/09/2021; Chest Single View dated 01/08/2021; Chest Abd Pelvis Wo Con dated 01/05/2021 FINDINGS: Lines: Endotracheal tube in satisfactory position at the clavicular heads. NG tube in the stomach. Defibrillator pads overlie the chest. Lungs: Diffuse prominence of the pulmonary interstitium. Pleural: No significant pleural effusions or pneumothorax. Cardiac: Cardiomegaly. Mitral annuloplasty. Mediastinum: Within normal limits. Bones: No acute fractures. Other: Sternotomy IMPRESSION: 1. Endotracheal tube and NG tube in satisfactory position. 2. Cardiomegaly with mild bladder hazy airspace disease that may reflect edema.
[2022-10-17 08:35] LABS: Albumin 2.8 g/dL (3.4-5.0); Bilirubin Direct 0.3 mg/dL (0-0.2); Bilirubin Total 0.5 mg/dL (0.2-1.0); Magnesium 2.7 mg/dL (1.6-2.4); Protein, Total 6.8 g/dL (6.4-8.2)
[2022-10-17 08:37] LABS: Troponin High Sensitivity 128.2 pg/mL (<58.9)
--- NOTE | 2022-10-17 08:40 | RAD REPORT ---
EXAM DESCRIPTION: CT - [id number] - 10/17/2022 8:28 am CLINICAL HISTORY: Trauma, head and neck injury. Cardiac arrest, fall COMPARISON: No comparisons TECHNIQUE: Axial 5 mm thick images of the head were obtained. Axial 2 mm thick images of the cervical spine were obtained with sagittal and coronal reconstruction images generated and reviewed. All CT scans are performed using dose optimization technique as appropriate and may include automated exposure control or mA/KV adjustment according to patient size. FINDINGS: CT HEAD WITHOUT CONTRAST: No acute hemorrhage, hydrocephalus or extra-axial collection is identified.No areas of brain edema or midline shift. Remote small left parietal cortical infarct. Possible small remote right parietal inf arct. Small volume of gas in the right edger tailer space. No underlying fractures seen. The paranasal sinuses and mastoids are clear.The calvarium is intact. CT CERVICAL SPINE WITHOUT CONTRAST: No fracture or subluxation.No prevertebral soft tissues swelling is identified. Apical scarring. Endo tracheal tube and NG tube. Multilevel degenerative changes are present in the spine. Schmorl's node i n C6. IMPRESSION: No acute intracranial or cervical spine findings. Small volume of right edger tailer space gas. This could be from trauma, endotracheal tube insertion, o r introduced during the venipuncture. No fractures identified, however.
--- OUTSIDE RECORDS SUMMARY | 2022-10-17 08:50 | XMS REPORT | Continuity of Care Document ---
:1975 Author Organization [facility] t Address [address] [place] [address] [address] [place] [address] Care Team Providers Name Role Phone SWATI ETIENNE Primary Care Physician Unavailable JOSE PAZ Attending Clinician Unavailable TED RUBI Attending Clinician Unavailable BENEDICTO WITT Attending Clinician Unavailable Jeffrey Haile CRNA Attending Clinician Leonidas Figueroa MD Attending Clinician Pob, Ad[facility] Lab Main Attending Clinician Unavailable Doctor Unassigned, Bylas Attending Clinician Unavailable Teo Rees Attending Clinician Robbi Jeter MD Attending Clinician Dylan Haro MD Attending Clinician ROBBI JETER Attending Clinician Unavailable Faculty, Vascular Surg Attending Clinician Unavailable SUDEEP CLEMENT Attending Clinician Unavailable JU ORTIZ Attending Clinician Unavailable Omar FAYE, Tereza Mccallum Attending Clinician [phone] Annita FAYE, Jaison Attending Clinician Hugo FAYE, Alden Suh Attending Clinician Francheska Dash Attending Clinician Unavailable Debra FAYE, Arcadio Hodge Attending Clinician Sharon Mendez MD Attending Clinician Suzie Beth MD Attending Clinician TEREZA GALVEZ Attending Clinician Unavailable WILL STRAUSS Attending Clinician Unavailable Agus King Attending Clinician Ted Rubi MD Attending Clinician RIVKA PATIÑO Attending Clinician Unavailable JOSE PAZ Admitting Clinician Unavailable TED RUBI Admitting Clinician Unavailable BENEDICTO WITT Admitting Clinician Unavailable Dylan Haro MD Admitting Clinician DYLAN HARO Admitting Clinician Unavailable MAURA GRIGGS Admitting Clinician Unavailable RIVKA PATIÑO Admitting Clinician Unavailable Payers Payer Name Policy Type Policy Number Effective Date Expiration Date S ource [facility] [id number] 2017 PLUS 00:00:00 [place]ICAID OF [place] [id number] 2019 00:00:00 [facility] [id number] 2018 PLAN 00:00:00 Problems Condition Condition Condition Status Onset Resolution Last Treating Co mments Source Name Details Category Date Date Treatment Clinician Date Hyperkalem Hyperkalem Disease Active 2021-06 U nivers ia ia 2-31 ity of 00:00: [place] [id number] Medical Branch s/p s/p Disease Active [facility] MVReplace MVReplace 01-11 Romero s ([facility]) - ([facility]) - 00:00: Medica laura Galvez - 00 [facility] er 01/11/21 01/11/21 Endocardit Endocardit Disease Active [facility] Mitral Mitral Disease Active [facility]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 2018-[address] [facility] chronic chronic 0-11 [facility] kidney kidney 00:00: Medical disease disease 00 Center HYPERTENSI HYPERTENS Diagnosis Active 2018-062019-04-02 Memoria VE THALAMI VERÓNICA 0-06 22:34:00 l THALAMI 00:00: Demond Active 00 03/15/2019 [facility] Hyperkalem Hyperkalem Disease Active [facility] ia ia 02-02 [facility] 00:[facility]: Medical 00 Center CHF CHF Disease Recurre [facility] (congestiv (congestiv nce 4 Jojo kes e heart e heart 00:00: Medical failure) failure) 00 Center Pulmonary Pulmonary Disease Recurre [facility] hypertensi hypertensi [facility] 4 Jojo kes on on 00:00: Medical 00 Center Thrombocyt Thrombocyt Disease Active C [facility] openia openia [facility] Acute Acute Disease Active [facility] respirator respirator Jojo kes y failure y failure [facility] with with Center hypoxia hypoxia HYPERTENSI Diagnosis Active 2019-04-02 Memoria VE HYPERTENSI 22:34:00 l EMERGENCY VE [place] EMERGENCY Active [facility] Thrombocyt Thrombocyt Disease Recurre [facility] ESRD (end ESRD (end Disease Recurre [facility] stage stage [facility] renal renal Medical disease) disease) Center on on dialysis dialysis Cardiac Cardiac Disease Recurre [facility] arrest arrest [facility] Cardiogeni Cardiogeni Disease Recurre [facility] c shock c shock [facility] PEA PEA Disease Recurre [facility] (Pulseless (Pulseless nme Jojo kes electrical electrical Me dical activity) activity) Cent er Hypovolemi Hypovolemi Disease Recurre [facility] c shock c shock [facility] Hemorrhagi Hemorrhagi Disease Recurre [facility] c shock c shock [facility] Coagulopat Coagulopat Disease Recurre [facility] hy hy [facility] Vasogenic Vasogenic Disease Recurre [facility] shock shock nce [facility] Acute Acute Disease Recurre [facility] hypoxemic hypoxemic nce Luke s respirator respirator Me dical y failure y failure Cent er Acute Acute Disease Recurre [facility] pulmonary pulmonary nce [facility] s edema edema [facility] Right Right Disease Active [facility] ventricula ventricula Jojo kes r r Medical dysfunctio dysfunctio Ce nter n n Acute Acute Disease Active [facility] blood loss blood loss Jojo kes anemia anemia [facility] Hyperglyce Hyperglyce Disease Active [facility] sylwia sylwia [facility] Delirium Delirium Disease Active [facility] t due to due to [facility] medical Medical condition condition Cent er with with behavioral behavioral disturbanc disturbanc e e Essential Essential Disease Active [facility]ensi [facility]i [facility] Metabolic Metabolic Disease Active [facility] acidosis acidosis [facility] Lactic Lactic Disease Active [facility] acidosis acidosis [facility] Hypoglycem Hypoglycem Disease Active [facility] ia ia [facility] Hemothorax Hemothorax Disease Active [facility] on left on left [facility] Acute Acute Disease Active [facility] respirator respirator Jojo kes y y Medical insufficie insufficie Ce nter ncy ncy S/P MVR S/P MVR Disease Active [facility] (mitral (mitral [facility]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 Medical replacemen replacemen Ce nter t) t) Physical Physical Disease Active [facility] t deconditio deconditio [facility] Hypertensi Hypertensi Disease Active [facility] ve urgency ve urgency [facility] Shock Shock Disease Recurre [facility] Allergies, Adverse Reactions, Alerts Allergy Allergy Status Severity Reaction(s) Onset Inactive Treating Comm ents Source Name Type Date Date Clinician NO KNOWN Drug Active Univers ALLERGIE Class ity of [facility] NO KNOWN Allergy Active [facility] St ALLERGIE [facility] Social History Social Habit Start Date Stop Date Quantity Comments Source History SDOH [facility] Alcohol Std Medical Cent[facility] r Drinks History SDOH [facility] Alcohol Binge Medical Eleuterio ter Exposure to 2022-08-10 2022-08-20 Not sure University of SARS-CoV-2 00:00:00 10:15:00 [facility] (event) Branch Alcohol intake 2021-04-05 2021-04-[address] [facility] 00:00:00 00:00:00 non-drinker of Medical Ce nter alcohol (finding) Tobacco use and 2019-02-18 2019-02-18 Smokeless [address] [facility] exposure 00:00:00 00:00:00 non-user Medical Center History SDOH 2019-02-18 2019-02-[address] S[facility] Alcohol Frequency 00:00:00 00:00:00 [facility] Sex Assigned At [birth year] HOMA Jacomes 00:00:00 00:00:00 Medical Center Smoking Status Start Date Stop Date Source Never smoked tobacco [facility] Medical [place] Tobacco smoking consumption [facility] Branch Medications Ordered Filled Start Stop Current Ordering Indication Dosage Frequency Signature Comments Components Source Medication Medication Date Date Medication? Clinician (SIG) Name Name FENTanyl PF Yes 25ug 25 mcg, Uni vers (SUBLIMAZE 3-16 Slow IV ity of (PF)) 14:52: Push, [place] injection 11 Q5MIN PRN, Medi diallo 25 mcg 4 doses, Branch Starting on [place] 08/23/22 at 0952, Until Discontinu ed, Routine, Pain (scale 4-6), PACU ondansetron Yes 4mg 4 mg, Slow Univers (ZOFRAN 3-16 IV Push, ity of (PF)) 14:52: PRN, 1 [place] injection 4 11 dose, Medical mg Starting Branch on [place] 08/23/22 at 0952, Until Discontinu ed, Routine, Nausea and Vomiting (N/V), PACU FENTanyl PF 2022-2022- No 25ug 25 mcg, Un [place] (SUBLIMAZE 3-16 03-16 Slow IV ity o f (PF)) 14:52: 18:47 Push, [place] injection 11 :27 Q5MIN PRN, Medi diallo 25 mcg 4 doses, Branch Starting on [place] 08/23/22 at 0952, Until [place] 08/23/22 at 1347, Routine, Pain (scale 4-6), PACU ondansetron 0 2022- No 4mg 4 mg, Slow Univers (ZOFRAN 3-16 03-16 IV Push, ity of (PF)) 14:52: 18:47 PRN, 1 [place] injection 4 11 :27 dose, Medical mg Starting Branch on [place] 08/23/22 at 0952, Until [place] 08/23/22 at 1347, Routine, Nausea and Vomiting (N/V), PACU bupivacaine 2022- No PRN, Unive rs (preserv 08-23 Starting ity of free) 14:33: 16:10 on [place] (SENSORCAIN 00 :56 08/23/22 at Va dical E MPF) 0.25 0933, Branch % (2.5 Until [place]uma mg/mL) 08/23/22 at injection 1110, Routine, Intra-op ondansetron 2022- No Slow IV Un catalino (ZOFRAN 08-23 Push, ONCE ity o f (PF)) 14:22: 15:07 INTRA [place] injection 00 :23 PROCEDURE, Medi diallo Starting Branch on [place] 08/23/22 at 0922, Until [place] 08/23/22 at 1007, Routine, Intra-op acetaminoph 2022- No IV Unive rs en ADULT 08-23 Infusion, ity o f (OFIRMEV) 14:06: 15:07 Administer [place] injection 00 :23 over 15 Medical Minutes, Branch ONCE INTRA PROCEDURE, Starting on [place] 08/23/22 at 0906, Until [place] 08/23/22 at 1007, Routine, Intra-op heparin 2022- No CONTINUOUS Uni vers 25,000 08-23 PRN, ity of Units/250 14:05: 16:10 Starting [place] as mL 00 :56 on [place] Medical (Premixed 08/23/22 at Bran ch Bag) in 0905, 0.45 % NS Until [place] 08/23/22 at 1110, Routine, Intra-op heparin 2022- No Slow IV Univer s 1,000 08-23 Push, ONCE ity of unit/mL 13:54: 15:07 INTRA [place] injection 00 :23 PROCEDURE, Medi diallo Starting Branch on [place] 08/23/22 at 0854, Until [place] 08/23/22 at 1007, Routine, Intra-op vasopressin 2022- No Topical, U nivers (VASOSTRICT 08-23 CONTINUOUS i ty of ) 20 Units 13:47: 15:07 PRN, [place] in NaCl 00 :23 Starting Medical 0.9% (NS) on [place] Branch 50 mL 08/23/22 at infusion 0847, Until [place] 08/23/22 at 1007, Intra-op vasopressin 2022- No Intravenou Univers (VASOSTRICT 08-23 s, ONCE ity of ) injection 13:46: 15:07 INTRA [place] 00 :23 PROCEDURE, Medical Starting Branch on [place] 08/23/22 at 0846, Until [place] 08/23/22 at 1007, Routine, Intra-op sodium 2022- No PRN, Univers chloride 08-23 Starting ity of 0.9 % 13:37: 16:10 on Luma [place] irrigation 00 :56 08/23/22 at Med ical solution 0837, Branch Until [place] 08/23/22 at 1110, Intra-op ePHEDrine 2022- No Slow IV Univ ers 25 mg/5 mL 08-23 Push, ONCE it y of (5 mg/mL) 13:19: 15:07 INTRA [place] syringe 00 :23 PROCEDURE, Medica l Starting Branch on [place] 08/23/22 at 0819, Until [place] 08/23/22 at 1007, Routine, Intra-op rocuronium 2022- No IV Push, Un [place] (ZEMURON) 08-23 ONCE INTRA ity of injection 13:15: 15:07 PROCEDURE, [place] 00 :23 Starting Medical on [place] Branch 08/23/22 at 0815, Until [place] 08/23/22 at 1007, Routine, Intra-op PHENYLephri 2022- No Slow IV Un catalino ne 1000 08-23 Push, ONCE ity o f mcg/10 mL 13:13: 15:07 INTRA [place] in 0.9% 00 :23 PROCEDURE, Medica l NaCl Starting Branch syringe on [place] 08/23/22 at 0813, Until [place] 08/23/22 at 1007, Routine, Intra-op ceFAZolin 2022- No IV Univers (ANCEF) 08-23 Piggyback, ity o f injection 13:12: 15:07 ONCE INTRA [place] 00 :23 PROCEDURE, Medical Starting Branch on [place] 08/23/22 at 0812, Until [place] 08/23/22 at 1007, JARRED, Intra-op dexamethaso 2022- No Intravenou Univers ne 08-23 s, ONCE ity of (DECADRON 13:11: 15:07 INTRA [place] PHOSPHATE) 00 :23 PROCEDURE, Med ical injection Starting Branch on [place] 08/23/22 at 0811, Until [place] 08/23/22 at 1007, Routine, Intra-op PHENYLephri 2022- No Slow IV Un catalino ne 1000 08-23 Push, ity of mcg/10 mL 13:07: 15:07 CONTINUOUS [place] in 0.9% 00 :23 PRN, Medical NaCl Starting Branch syringe on [place] 08/23/22 at 0807, Until [place] 08/23/22 at 1007, Routine, Intra-op FENTanyl PF 2022- No Intravenou Univers (SUBLIMAZE 08-23 s, ONCE ity o f (PF)) 13:05: 15:07 INTRA [place] injection 00 :23 PROCEDURE, Medi diallo Starting Branch on [place] 08/23/22 at 0805, Until [place] 08/23/22 at 1007, Routine, Intra-op propofoL IV 2022- No Intravenou Univers infusion 08-23 s, ONCE ity of 12:59: 15:07 INTRA [place] 00 :23 PROCEDURE, Medical Starting Branch on [place] 08/23/22 at 0759, Until [place] 08/23/22 at 1007, Routine, Intra-op lidocaine 2022- No Intravenou U nivers 1% 08-23 s, ONCE ity of (XYLOCAINE) 12:59: 15:07 INTRA [place] 100 mg/10 00 :23 PROCEDURE, Medi diallo mL (1 %) Starting Branch injection on [place] 08/23/22 at 0759, Until [place] 08/23/22 at 1007, Routine, Intra-op lactated 2022- No IV Univers ringers IV 08-23 Infusion, ity of infusion 12:50: 15:07 CONTINUOUS [place] 00 :23 PRN, Medical Starting Branch on [place] 08/23/22 at 0750, Until [place] 08/23/22 at 1007, Routine, Intra-op midazolam 2022-2022- No IV Push, Uni vers (VERSED) 08-2316 ONCE INTRA ity of injection 12:50: 15:07 PROCEDURE, [place] 00 :23 Starting Medical on [place] Branch 08/23/22 at 0750, Until [place] 08/23/22 at 1007, Routine, Intra-op sildenafiL 2022-0 Yes 50mg Take 1 Unive rs 50 mg 3-16 tablet by ity of tablet 11:47: mouth as [place] 26 needed. Medical Branch sildenafiL 2022-0 Yes 50mg Take 1 Unive rs 50 mg 3-16 tablet by ity of tablet 11:47: mouth as [place] 26 needed. Medical Branch lactated 2022-0 2022- No 1000mL at 42 Unive rs ringers IV - 03-16 mL/hr, ity of infusion 11:15: 11:38 1,000 mL, Mark as 1,000 mL 00 :00 IV Medical Infusion, Branch ONCE, 1 dose, On [place] 08/23/22 at 0615, Routine, DSU Pre-op lactated 2022-0 2022- No 1000mL at 42 Unive rs ringers IV -23 08-16 mL/hr, ity of infusion 11:15: 11:38 1,000 mL, [place] as 1,000 mL 00 :00 IV Medical Infusion, Branch ONCE, 1 dose, On [facility] 08/23/22 at 0615, Routine, DSU Pre-op sildenafiL 2022-0 Yes 50mg Take 1 Unive rs 50 mg 3-16 tablet by ity of tablet 09:54: mouth as [place] 44 needed. Medical Branch ibuprofen 2022-0 2022- Yes [id number] 800mg Take 1 Univers 800 mg -23 08-31 tablet by ity of tablet 00:00: 04:59 mouth [place] 00 :00 every 6 Medical (six) Branch hours as needed for Pain (scale 1-3) for up to 14 days. ibuprofen 2022-0 2022- Yes [id number] 800mg Take 1 Univers 800 mg -23 08-31 tablet by ity of tablet 00:00: 04:59 mouth [place] 00 :00 every 6 Medical (six) Branch hours as needed for Pain (scale 1-3) for up to 14 days. HYDROcodone 2023-0 3- Yes [id number] 1{tbl} Take 1 U nivers -acetaminop 3-16 03-24 tablet by it y of hen (NORCO) 00:00: 04:59 mouth [place] 5-325 mg 00 :00 every 6 Medical tablet (six) Branch hours as needed for Pain (scale 7-10) for up to 7 days. Indication s: acute pain HYDROcodone 2023-0 3- Yes [id number] 1{tbl} Take 1 U nivers -acetaminop 3-16 03-24 tablet by it y of hen (NORCO) 00:00: 04:59 mouth [place] 5-325 mg 00 :00 every 6 Medical tablet (six) Branch hours as needed for Pain (scale 7-10) for up to 7 days. Indication s: acute pain sildenafiL 3-0 Yes 50mg Take 50 mg U nivers 50 mg 2-20 by mouth ity of tablet 10:03: as needed. [address] Branch sildenafiL 2023-0 Yes 50mg Take 50 mg U nivers 50 mg 2-16 by mouth ity of tablet 06:49: as needed. [place] 13 [facility] Branch sildenafiL 2023-0 Yes 50mg Take 50 mg U nivers 50 mg 2-16 by mouth ity of tablet 06:49: as needed. [place] 13 [facility] Branch sildenafiL 2023-0 Yes 50mg Take 50 mg U nivers 50 mg 1-30 by mouth ity of tablet 12:02: as needed. [address] sildenafiL 2023-0 Yes 50mg Take 50 mg U nivers 50 mg 1-30 by mouth ity of tablet 12:02: as needed. [address] Branch pantoprazol 3-0 Yes 1{tbl} Take 1 Un catalino e 40 mg EC 1-21 tablet by ity of tablet 00:00: mouth in [place] 00 the Medical morning. Branch pantoprazol 2023-0 Yes 1{tbl} Take 1 Un catalino e 40 mg EC 1-21 tablet by ity of tablet 00:00: mouth in [place] the Medical morning. Branch pantoprazol 2023-0 Yes 1{tbl} Take 1 Un catalino e 40 mg EC 1-21 tablet by ity of tablet 00:00: mouth in [place] 00 the Medical morning. Branch pantoprazol 2022-0 Yes 40mg Take 1 Univ ers e 40 mg EC 1-21 tablet by ity of tablet 00:00: mouth in [place] 00 the Medical morning. Branch pantoprazol 2022-0 Yes 40mg Take 1 Univ ers e 40 mg EC 1-21 tablet by ity of tablet 00:00: mouth in [place] 00 the Medical morning. Branch pantoprazol 202-0 Yes 40mg Take 1 Univ ers e 40 mg EC 1-21 tablet by ity of tablet 00:00: mouth in [place] 00 the Medical morning. Branch warfarin 2022-0 Yes 5mg 5 mg, Univers (COUMADIN) 06-10 Oral, ity of tablet 5 mg 23:00: DAILY AT [place] 00 1700, Medical First dose Branch on 06/10/22 at 1700, Until Discontinu ed, Routine
INR Goal Range: 2.5-3.5
INDICATIO N (More than one indication for warfarin can be selected): Other (please enter in the Comments section) NIFEdipine 2022-0 Yes 60mg 60 mg, Unive rs ER tablet 06-10 Oral, ity of 60 mg 15:00: DAILY, [place] 00 First dose Medical (after Branch last modificati on) on 06/10/22 at 0900, Until Discontinu ed, Routine amiodarone 2022-0 Yes 100mg 100 mg, Uni vers (PACERONE) 06-10 Oral, ity of tablet 100 15:00: DAILY, [place] mg 00 First dose Medical on [place] Branch 06/10/22 at 0900, Until Discontinu ed, Routine buPROPion 2022-0 Yes 150mg 150 mg, Univ ers XL 06-10 Oral, ity of (WELLBUTRIN 15:00: DAILY, [place] XL) tablet 00 First dose Med ical 150 mg on [place] Branch 06/10/22 at 0900, Until Discontinu ed, Routine cloNIDine 2022-0 Yes .1mg 0.1 mg, Unive rs (CATAPRES) 06-10 Oral, TID, ity of tablet 0.1 14:00: First dose [place] mg 00 on [place] Medical 06/10/22 at Branch 0800, Until Discontinu ed, Routine carvediloL 2022-0 Yes 25mg 25 mg, Unive rs (COREG) 06-10 Oral, BID ity of tablet 25 14:00: MEALS, [place] mg 00 First dose Medical (after [place] last modificati on) on [place] 06/10/22 at 0800, Until Discontinu ed, Routine gabapentin 0 Yes 100mg 100 mg, Uni vers (NEURONTIN) 06-10 Oral, TID, it y of capsule 100 14:00: First dose [place] mg 00 on [place] Medical 06/10/22 at Branch 0800, Until Discontinu ed, Routine losartan 0 Yes 50mg 50 mg, Univers (COZAAR) 06-10 Oral, ity of tablet 50 12:30: DAILY, [place] mg 00 First dose Medical (after [place] last modificati on) on [place] 06/10/22 at 0630, Until Discontinu ed, Routine cloNIDine 2022-0 202- No .1mg 0.1 mg, Univ ers (CATAPRES) 06-10 Oral, ity of tablet 0.1 10:45: 11:33 ONCE, 1 [place] mg 00 :00 dose, On Medical [place] 06/10/22 Branch at 0445, Routine NaCl 0.9% 2022- No 5mL 5 mL, Slow U nivers (NS) 06-10 IV Push, ity of injection 5 06:15: 10:19 ONCE, 1 [place] mL 00 :00 dose, On Medical [place] 06/10/22 Branch at 0015, Routine mupirocin 2022-0 Yes Nasal, Univer s (BACTROBAN 06-10 Q12H, For ity of NASAL OINT) 06:09: 5 days, [place] as 2 % nasal 32 First dose Medi diallo ointment conditiona Branc h l, Routine heparin 2022-0 Yes 2000U PRN - SEE Univ ers 1,000 06-10 INSTRUCTIO ity of unit/mL (10 06:09: NS, [place] mL) - 30 Starting Medical dialysis on [facility] catheter 06/10/22 at care 0009, Until Discontinu ed, Routine
For Priming of Ports:&nbs p; &n bsp; After initial saline flush, prime each port with heparin according to the priming volume listed on each catheter port for catheter lock.
calcium No 2g 2 g, IV Univer s gluconate 2 06-10 Infusion, it y of g in NaCl 04:00: 05:29 at 200 [place] 100 mL 00 :00 mL/hr Medical (ISO-OSM) Administer Bran ch RTU IV over 30 infusion 2 Minutes, g ONCE, 1 dose, On 06/09/22 at 2200, Routine acetaminoph Yes 650mg 650 mg, Un catalino en 06-10 Oral, ity of (TYLENOL) 02:56: Q6HPRN, [place] tablet 650 56 Starting Medic al mg on Sat Branch 06/09/22 at 2056, Until Discontinu ed, Routine, Pain (scale 1-3) hydralAZINE 2022- No 10mg 10 mg, Uni vers (APRESOLINE 06-10 Slow IV ity of ) injection 00:04: 00:10 Push, [place] 10 mg 00 :00 ONCE, 1 Medical dose, On Branch 06/09/22 at 1815, JARRED furosemide 2021-06- No 60mg 60 mg, IV U nivers (LASIX) 06-10 Push, ity of injection 23:47: 00:06 ONCE, 1 [place] 60 mg 00 :00 dose, On Medical Sat Branch 06/09/22 at 1800, JARRED dextrose 50 2021-06 No 50mL 50 mL, Uni vers % in water 06-09 Intravenou it y of (D50W) 23:22: 23:24 s, ONCE, 1 [place] injection 00 :00 dose, On Medica l 50 mL Sat Branch 06/09/22 at 1730, STAT insulin 2021-06- No 7U 7 Units, Unive rs regular 06-09 Slow IV ity of human 23:05: 23:24 Push, [place] (HUMULIN R) 00 :00 ONCE, 1 Medic al injection 7 dose, On Bran ch Units 06/09/22 at 1715, STAT
In dication for insulin: Hyperkalem ia- Please use the Insulin Protocol for Hyperkalem ia order set RAMIPRIL 2021-06- No Take by Unive rs ORAL 06-09 mouth. ity of 22:44: 00:00 [place] 41 :00 Medical Branch SEVELAMER 2021-06- No Take by [facility] ers HCL ORAL 06-09 mouth. ity of 22:44: 00:00 [place] 41 :00 Medical Branch METOPROLOL 2021-06- No Take by Uni vers TARTRATE 06-09 mouth. ity of ORAL 22:44: 00:00 [place] 41 :00 Medical Branch terazosin 2021-06- No Take by [facility] ers HCl (HYTRIN 06-09 mouth. ity o f ORAL) 22:44: 00:00 [place] 41 :00 Medical Branch sevelamer 2021-06- No 800mg Take 800 Un [place] 800 mg 06-09 mg by ity of tablet 22:44: 00:00 mouth. [place] 41 :00 Medical Branch hydralAZINE 2021-06- No 10mg 10 mg, Uni vers (APRESOLINE 06-09 Slow IV ity of ) injection 20:39: 20:58 Push, [place] 10 mg 00 :00 ONCE, 1 Medical dose, On Branch 06/09/22 at 1445, JARRED dextrose 50 2021-06- No 50mL 50 mL, Uni vers % in water 06-09 Slow IV ity o f (D50W) 19:29: 19:32 Push, [place] injection 00 :00 ONCE, 1 Medical 50 mL dose, On Branch 06/09/22 at 1330, STAT insulin 2021-06- No .1U/kg 7.3 Units Un [place] regular 06-09 (0.1 ity of human 18:40: 18:42 Units/kg [place] (HUMULIN R) 00 :00 ?73 kg), Medi diallo injection Slow IV Branch 7.3 Units Push, ONCE, 1 dose, On 06/09/22 at 1245, Routine
Indica tion for insulin: Hyperkalem ia- Please use the Insulin Protocol for Hyperkalem ia order set calcium 2021-06- No 1000mg 1,000 mg, Un [place] gluconate 06-09 IV Push, ity o f 100 mg/mL 18:30: 18:28 ONCE, 1 [place] (10%) 00 :00 dose, On Medical injection Sat Branch 1,000 mg 06/09/22 at 1230, STAT cloNIDine 2021-06- No .1mg 0.1 mg, Univ ers (CATAPRES) 06-09 Oral, ity of tablet 0.1 18:27: 18:32 ONCE, 1 [place] mg 00 :00 dose, On Medical Sat Branch 06/09/22 at 1230, STAT furosemide 2021-06- No 40mg 40 mg, Univ ers (LASIX) 06-09 Slow IV ity of injection 18:26: 18:32 Push, [place] 40 mg 00 :00 ONCE, 1 Medical dose, On Branch 06/09/22 at 1230, JARRED dextrose 50 2021-06 No 50mL 50 mL, Uni vers % in water 06-09 Intravenou it y of (D50W) 18:22: 18:28 s, ONCE, 1 [place] injection 00 :00 dose, On Medica l 50 mL Sat Branch 06/09/22 at 1230, STAT warfarin 1 2021-06 Yes 1{tbl} Take 1 Uni vers mg tablet 2-29 tablet by ity o f 00:00: mouth [place] 00 every Medical evening. Branch warfarin 2021-06 Yes 1{tbl} Take 1 Uni vers mg tablet 2-29 tablet by ity o f 00:00: mouth [place] 00 every Medical evening. Branch warfarin 2021-06 Yes 1{tbl} Take 1 Uni vers mg tablet 2-29 tablet by ity o f 00:00: mouth [place] 00 every Medical evening. Branch warfarin 2021-06 Yes 1{tbl} Take 1 Uni vers mg tablet 2-29 tablet by ity o f 00:00: mouth [place] 00 every Medical evening. Branch warfarin 1 2021-06 Yes 1{tbl} Take 1 Uni vers mg tablet 2-29 tablet by ity o f 00:00: mouth [place] 00 every Medical evening. Branch warfarin 2021-06 Yes 1mg Take 1 Unive rs mg tablet 2-29 tablet by ity o f 00:00: mouth [place] 00 every Medical evening. Branch warfarin 2021-06 Yes 1mg Take 1 Unive rs mg tablet 2-29 tablet by ity o f 00:00: mouth [place] 00 every Medical evening. Branch warfarin 1 2021-06 Yes 1mg Take 1 Unive rs mg tablet 2-29 tablet by ity o f 00:00: mouth [place] 00 every Medical evening. Branch NIFEdipine 2021-06 Yes Univers ER 60 mg 1-29 ity of tablet 00:00: [place] 00 [facility] NIFEdipine 2021- Yes Univers ER 60 mg 1-29 ity of tablet 00:00: [place] 00 [facility] NIFEdipine 2021-1 Yes 60mg Take 60 mg U nivers ER 60 mg 1-29 by mouth ity of tablet 00:00: in the [place] 00 morning. Medical Branch NIFEdipine 2021- Yes 60mg Take 60 mg U nivers ER 60 mg 1-29 by mouth ity of tablet 00:00: in the [place] morning. Medical Branch NIFEdipine 2021- Yes 60mg Take 60 mg U nivers ER 60 mg 1-29 by mouth ity of tablet 00:00: in the [place] morning. Medical Branch NIFEdipine 2021- Yes 60mg Take 60 mg U nivers ER 60 mg 1-29 by mouth ity of tablet 00:00: in the [place] morning. Medical Branch NIFEdipine 2021- Yes 60mg Take 60 mg U nivers ER 60 mg 1-29 by mouth ity of tablet 00:00: in the [place] morning. Medical Branch NIFEdipine 2021- Yes 60mg Take 1 Unive rs ER 60 mg 1-29 tablet by ity of tablet 00:00: mouth in [place] the Medical morning. Branch NIFEdipine 2021-1 Yes 60mg Take 1 Unive rs ER 60 mg 1-29 tablet by ity of tablet 00:00: mouth in [place] 00 the Medical morning. Branch NIFEdipine 2021- Yes 60mg Take 1 Unive rs ER 60 mg 1-29 tablet by ity of tablet 00:00: mouth in [place] 00 the Medical morning. Branch buPROPion 2021-06 Yes Univers XL 150 mg 1-17 ity of 24 hr 00:00: [place] tablet 00 Medical Branch buPROPion 2021- Yes Univers XL 150 mg 1-17 ity of 24 hr 00:00: [place] tablet 00 Medical Branch buPROPion 2021- Yes 150mg Take 150 Uni vers XL 150 mg 1-17 mg by ity of 24 hr 00:00: mouth in [place] tablet 00 the Medical morning. Branch buPROPion 2021-06 Yes 150mg Take 150 Uni vers XL 150 mg 1-17 mg by ity of 24 hr 00:00: mouth in [place] tablet 00 the morning. Branch buPROPion 2021-06 Yes 150mg Take 150 Uni vers XL 150 mg 1-17 mg by ity of 24 hr 00:00: mouth in [place] tablet the morning. Branch buPROPion 2021-06 Yes 150mg Take 150 Uni vers XL 150 mg 1-17 mg by ity of 24 hr 00:00: mouth in [place] tablet the morning. Branch buPROPion 2021-06 Yes 150mg Take 150 Uni vers XL 150 mg 1-17 mg by ity of 24 hr 00:00: mouth in [place] tablet the morning. Branch buPROPion 2021-06 Yes 150mg Take 1 Unive rs XL 150 mg 1-17 tablet by ity o f 24 hr 00:00: mouth in [place] tablet the morning. Branch buPROPion 2021-06 Yes 150mg Take 1 Unive rs XL 150 mg 1-17 tablet by ity o f 24 hr 00:00: mouth in [place] tablet the morning. Branch buPROPion 2021-06 Yes 150mg Take 1 Unive rs XL 150 mg 1-17 tablet by ity o f 24 hr 00:00: mouth in [place] tablet the morning. [place] cloNIDine 2021-06 Yes 3 (three) Uni vers 0.1 mg 0-21 times ity of tablet 00:00: daily. [facility] cloNIDine 2021-06 Yes 3 (three) Uni vers 0.1 mg 0-21 times ity of tablet 00:00: daily. [facility] cloNIDine 2021-06 Yes 3 (three) Uni vers 0.1 mg 0-21 times ity of tablet 00:00: daily. [place] [facility] cloNIDine 2021-06 Yes 3 (three) Uni vers 0.1 mg 0-21 times ity of tablet 00:00: daily. [place] [facility] cloNIDine 2021-06 Yes 3 (three) Uni vers 0.1 mg 0-21 times ity of tablet 00:00: daily. [place] [facility] cloNIDine 2021-06 Yes 3 (three) Uni vers 0.1 mg 0-21 times ity of tablet 00:00: daily. Medical Branch cloNIDine 2021- Yes 3 (three) Uni vers 0.1 mg 0-21 times ity of tablet 00:00: daily. Medical Branch cloNIDine 2021- Yes 3 (three) Uni vers 0.1 mg 0-21 times ity of tablet 00:00: daily. [facility] cloNIDine 2021- Yes 3 (three) Uni vers 0.1 mg 0-21 times ity of tablet 00:00: daily. [facility] Branch cloNIDine 2021- Yes 3 (three) Uni vers 0.1 mg 0-21 times ity of tablet 00:00: daily. Medical Branch warfarin 5 2021-0 Yes DAILY Univer s mg tablet 2-21 ity of 00:00: Medical Branch losartan 50 2021-0 Yes DAILY Unive rs mg tablet 2-21 ity of 00:00: Medical Branch amiodarone 2021-0 Yes 1{tbl} Take 1 Uni vers (PACERONE) 2-21 tablet by ity of 100 mg 00:00: mouth in [place] tablet 00 the Medical morning. Branch gabapentin 2021-0 Yes at Univers 100 mg 2-21 bedtime. ity of capsule 00:00: Medical Branch carvediloL 2021-0 Yes 2 (two) Univ ers (COREG) 25 2-21 times ity of mg tablet 00:00: daily. [place] [facility] Branch warfarin 5 2021-0 Yes DAILY Univer s mg tablet 2-21 ity of 00:00: Medical Branch losartan 50 2021-0 Yes DAILY Unive rs mg tablet 2-21 ity of 00:00: Medical Branch amiodarone 2021-0 Yes 1{tbl} Take 1 Uni vers (PACERONE) 2-21 tablet by ity of 100 mg 00:00: mouth in [place] tablet 00 the Medical morning. Branch gabapentin 2021-0 Yes at Univers 100 mg 2-21 bedtime. ity of capsule 00:00: Medical Branch carvediloL 2021-0 Yes 2 (two) Univ ers (COREG) 25 2-21 times ity of mg tablet 00:00: daily. [facility] Branch losartan 50 2021-0 Yes DAILY Unive rs mg tablet 2-21 ity of 00:00: Medical Branch amiodarone 2-0 Yes 1{tbl} Take 1 Uni vers 100 mg 2-21 tablet by ity of tablet 00:00: mouth in [place] the Medical morning. Branch gabapentin 2-0 Yes at Univers 100 mg 2-21 bedtime. ity of capsule 00:00: Medical Branch carvediloL 2-0 Yes 2 (two) Univ ers 25 mg 2-21 times ity of tablet 00:00: daily. Medical Branch losartan 50 2-0 Yes DAILY Unive rs mg tablet 2-21 ity of 00:00: [place] [facility] amiodarone 2021-0 Yes 1{tbl} Take 1 Uni vers 100 mg 2-21 tablet by ity of tablet 00:00: mouth in [place] the Medical morning. Branch gabapentin 2021-0 Yes at Univers 100 mg 2-21 bedtime. ity of capsule 00:00: [place] [facility] carvediloL 2021-0 Yes 2 (two) Univ ers 25 mg 2-21 times ity of tablet 00:00: daily. [place] [facility] losartan 50 2-0 Yes 50mg Take 50 mg Univers mg tablet 2-21 by mouth ity of 00:00: in the [place] morning. Medical Branch amiodarone 2021-0 Yes 1{tbl} Take 1 Uni vers 100 mg 2-21 tablet by ity of tablet 00:00: mouth in [place] the Medical morning. Branch gabapentin 2-0 Yes at Univers 100 mg 2-21 bedtime. ity of capsule 00:00: [place] [facility] carvediloL 2-0 Yes 2 (two) Univ ers 25 mg 2-21 times ity of tablet 00:00: daily. [place] [facility] losartan 50 2-0 Yes 50mg Take 50 mg Univers mg tablet 2-21 by mouth ity of 00:00: in the [place] morning. Medical Branch amiodarone 2021-0 Yes 1{tbl} Take 1 Uni vers 100 mg 2-21 tablet by ity of tablet 00:00: mouth in [place] the Medical morning. Branch gabapentin 2-0 Yes at Univers 100 mg 2-21 bedtime. ity of capsule 00:00: [place] [facility] carvediloL 2-0 Yes 2 (two) Univ ers 25 mg 2-21 times ity of tablet 00:00: daily. Medical Branch losartan 50 2-0 Yes 50mg Take 50 mg Univers mg tablet 2-21 by mouth ity of 00:00: in the [place] 00 morning. Medical Branch amiodarone 2022-0 Yes 1{tbl} Take 1 Uni vers 100 mg 2-21 tablet by ity of tablet 00:00: mouth in [place] the Medical morning. Branch gabapentin 2022-0 Yes at Univers 100 mg 2-21 bedtime. ity of capsule 00:00: [place] [facility] carvediloL 2022-0 Yes 2 (two) Univ ers 25 mg 2-21 times ity of tablet 00:00: daily. [place] [facility] losartan 50 2-0 Yes 50mg Take 1 Univ ers mg tablet 2-21 tablet by ity o f 00:00: mouth in [place] the Medical morning. Branch amiodarone 2022-0 Yes 100mg Take 1 Univ ers 100 mg 2-21 tablet by ity of tablet 00:00: mouth in [place] the Medical morning. Branch gabapentin 2022-0 Yes at Univers 100 mg 2-21 bedtime. ity of capsule 00:00: [place] [facility] carvediloL 2022-0 Yes 2 (two) Univ ers 25 mg 2-21 times ity of tablet 00:00: daily. [place] [facility] losartan 50 2-0 Yes 50mg Take 1 Univ ers mg tablet 2-21 tablet by ity o f 00:00: mouth in [place] the Medical morning. Branch amiodarone 2022-0 Yes 100mg Take 1 Univ ers 100 mg 2-21 tablet by ity of tablet 00:00: mouth in [place] the Medical morning. Branch gabapentin 2022-0 Yes at Univers 100 mg 2-21 bedtime. ity of capsule 00:00: [place] [facility] carvediloL 2022-0 Yes 2 (two) Univ ers 25 mg 2-21 times ity of tablet 00:00: daily. [place] [facility] losartan 50 2022-0 Yes 50mg Take 1 Univ ers mg tablet 2-21 tablet by ity o f 00:00: mouth in [place] the Medical morning. Branch amiodarone 2022-0 Yes 100mg Take 1 Univ ers 100 mg 2-21 tablet by ity of tablet 00:00: mouth in [place] 00 the Medical morning. Branch gabapentin Yes at Univers 100 mg 2-21 bedtime. ity of capsule 00:00: [place] 00 [facility] Branch carvediloL Yes 2 (two) Univ ers 25 mg 2-21 times ity of tablet 00:00: daily. [place] 00 Medical Branch warfarin 5 2022- No 5mg Take 5 mg U nivers mg tablet 2-21 30 by mouth ity o f 00:00: 00:00 every [place] 00 :00 evening. Medical Branch calcitriol 2020-06 Yes .5ug QD Take 0.[address] [facility] (ROCALTROL) 0-27 mcg [facility] 0.5 MCG 16:16: mouth Medical capsule 15 daily. Center sevelamer 2020-06 Yes 800mg Take [address] [facility] (RENVELA) 0-27 mg by [facility] 800 mg 15:50: mouth 3 Medical tablet 13 (three) Center times daily with meals. warfarin 2020-06 Yes 5mg QD Take [address] [facility] (COUMADIN, 0-27 by mouth [facility] JANTOVEN) 5 15:40: daily. Medi diallo MG tablet 58 Center carvediloL 2020-06- No 25mg Q.5D Take [address] [facility] (COREG) 25 0-27 10-27 tablet (25 Jojo kes MG tablet 00:00: 23:59 mg total) Me dical 00 :00 by mouth 2 Center (two) times daily. pantoprazol 2020-06 Yes 40mg QD Take [address] [facility] e 0-17 tablet (40 [facility] (PROTONIX) 00:00: mg total) Me dical 40 MG 00 by mouth Center tablet daily. losartan 2020-06- No 50mg QD Take [address] [facility] (COZAAR) 50 0-17 10-17 tablet (50 L ukes MG tablet 00:00: 23:59 mg total) Me dical 00 :00 by mouth Center daily. gabapentin 2020-06- No 100mg Q.5D Take [address] [facility] (NEURONTIN) 0-16 10-16 capsule Luke s 100 MG 00:00: 23:59 (100 mg Medical capsule 00 :00 total) by Center mouth 2 (two) times daily. cloNIDine 2020-06- No .3mg Q.[id number] Take [address] [facility] HCL 0-16 10-16 [id number] tablet [facility] (CATAPRES) 00:00: 23:59 3D (0.3 mg Med ical 0.3 MG 00 :00 total) by Center tablet mouth 3 (three) times daily. amiodarone 2020-06- No 100mg Q.5D Take [address] [facility] (PACERONE) 0-16 10-16 tablet [facility] 100 MG 00:00: 23:59 (100 mg Medical tablet 00 :00 total) by Center mouth 2 (two) times daily. NIFEdipine 2020- No 90mg Q.5D Take [address] [facility] (ADALAT CC) 8 08-04 by mouth 2 L ukes 90 MG 24 hr 22:58: 00:00 (two) Medi diallo tablet 20 :00 times Center daily. NIFEdipine 2020- No 90mg Q.5D Take [address] [facility] (ADALAT CC) 8 08-04 by mouth 2 L ukes 90 MG 24 hr 22:58: 00:00 (two) Medi diallo tablet 20 :00 times Center daily. NIFEdipine 2020- No 90mg Q.5D Take [address] [facility] (ADALAT CC) 8 08-04 by mouth 2 L ukes 90 MG [...] 21 daily. Center Tab hydrALAZINE Yes 100mg Q.[id number] Take [address] [facility] (APRESOLINE 8-03 [id number] mg by L ukes ) 100 MG [...] (three) Center times daily with meals. calcitriol 2020-0 Yes .5ug QD Take 0.[address] [facility] (ROCALTROL) 8-03 mcg by [facility] 0.5 MCG 16:49: mouth Medical capsule 21 daily. Center cholecalcif 0 Yes 5000U QD Take 5,[address] [facility] dori, 8-03 Units by [facility] vitamin D3, 16:49: mouth Medic al 5,000 unit 21 daily. Center Tab hydrALAZINE 2020-0 Yes 100mg Q.[id number] Take [address] [facility] (APRESOLINE 8-03 [id number] mg by L ukes ) 100 MG 16:49: 3D mouth 3 Medica l tablet 21 (three) Center times daily. ramipril 0 Yes 10mg QD Take [address] [facility] (ALTACE) 10 8-03 by mouth Luke s MG capsule 16:49: daily. Medic al 21 [place] sevelamer 0 Yes 800mg Take 800 [facility] [...] 5,000 unit 21 daily. Center Tab hydrALAZINE 2020-0 Yes 100mg Q.[id number] Take [address] [facility] (APRESOLINE 8-03 [id number] mg by L ukes ) 100 MG 16:49: 3D mouth 3 Medica l tablet 21 (three) Center times daily. ramipril 2020-0 Yes 10mg QD Take [address] [facility] (ALTACE) 10 8-03 by mouth Luke s MG capsule 16:49: daily. Medic al 21 [place] sevelamer 2020-0 Yes 800mg Take [address] (RENVELA) 8-03 mg by [facility] 800 mg 16:49: mouth 3 Medical tablet 21 (three) Center times daily with meals. minoxidiL Yes 1{tbl} QD Take [address] [facility] (LONITEN) 5-24 tablet by [facility] 2.5 MG 00:00: mouth Medical tablet 00 daily. Center terazosin Yes 1{capsu Take [address] [facility] (HYTRIN) 10 5-24 le} capsule by Jojo kes MG capsule 00:00: mouth 2 Medi diallo 00 (two) Center times daily as needed. minoxidiL Yes 1{tbl} QD Take [address] [facility] (LONITEN) 5-24 tablet by [facility] 2.5 MG 00:00: mouth Medical tablet 00 daily. Center terazosin Yes 1{capsu Take [address] [facility] (HYTRIN) 10 5-24 le} capsule by Jojo kes MG capsule 00:00: mouth 2 Medi diallo 00 (two) Center times daily as needed. minoxidiL Yes 1{tbl} QD Take [address] [facility] (LONITEN) 5-24 tablet by [facility] 2.5 MG 00:00: mouth Medical tablet 00 daily. Center terazosin Yes 1{capsu Take [address] [facility] (HYTRIN) 10 5-24 le} capsule by Jojo kes MG capsule 00:00: mouth 2 Medi diallo 00 (two) Center times daily as needed. metoprolol Yes 1{tbl} QD Take [address] [facility] tartrate 5-17 tablet by [facility] (LOPRESSOR) 00:00: mouth Medic al 100 MG 00 daily. Center tablet metoprolol Yes 1{tbl} QD Take [address] [facility] tartrate 5-17 tablet by [facility] (LOPRESSOR) 00:00: mouth Medic al 100 MG 00 daily. Center tablet metoprolol Yes 1{tbl} QD Take [address] [facility] [address] tartrate 5-17 tablet by [facility] (LOPRESSOR) 00:00: mouth Medic al 100 MG 00 daily. Center tablet RAMIPRIL Yes Take by [facility] s ORAL 6-08 mouth. ity of 14:19: [address] SEVELAMER 2019-0 Yes Take by [facility] rs HCL ORAL 6-08 mouth. ity of 14:19: [address] METOPROLOL 2020-0 Yes Take by Univ ers TARTRATE 6-08 mouth. ity of ORAL 14:19: [address] terazosin 2020-0 Yes Take by Unive rs HCl (HYTRIN 6-08 mouth. ity of ORAL) 14:19: [address] RAMIPRIL 2020-0 Yes Take by Univer s ORAL 6-08 mouth. ity of 14:19: [address] SEVELAMER 2020-0 Yes Take by Unive rs HCL ORAL 6-08 mouth. ity of 14:19: [address] METOPROLOL 2020-0 Yes Take by Univ ers TARTRATE 6-08 mouth. ity of ORAL 14:19: [address] terazosin 2020-0 Yes Take by Unive rs HCl (HYTRIN 6-08 mouth. ity of ORAL) 14:19: [address] RAMIPRIL 2020-0 Yes Take by Univer s ORAL 6-08 mouth. ity of 14:19: [address] SEVELAMER 2019-0 Yes Take by Unive rs HCL ORAL 6-08 mouth. ity of 14:19: [address] METOPROLOL 2020-0 Yes Take by Univ ers TARTRATE 6-08 mouth. ity of ORAL 14:19: [address] terazosin 2020-0 Yes Take by Unive rs HCl (HYTRIN 6-08 mouth. ity of ORAL) 14:19: [address] RAMIPRIL 2020-0 Yes Take by Univer s ORAL 6-08 mouth. ity of 09:19: [address] SEVELAMER 2020-0 Yes Take by Unive rs HCL ORAL 6-08 mouth. ity of 09:19: [address] METOPROLOL 2020-0 Yes Take by Univ ers TARTRATE 6-08 mouth. ity of ORAL 09:19: [address] terazosin 2020-0 Yes Take by Unive rs HCl (HYTRIN 6-08 mouth. ity of ORAL) 09:19: [address] RAMIPRIL 2020-0 Yes Take by Univer s ORAL 6-08 mouth. ity of 09:19: [address] SEVELAMER 2020-0 Yes Take by Unive rs HCL ORAL 6-08 mouth. ity of 09:19: [address] METOPROLOL 2020-0 Yes Take by Univ ers TARTRATE 6-08 mouth. ity of ORAL 09:19: [address] terazosin 2019-0 Yes Take by Unive rs HCl (HYTRIN 6-08 mouth. ity of ORAL) 09:19: [address] RAMIPRIL 2019-0 Yes Take by Univer s ORAL 6-08 mouth. ity of 09:19: [address] SEVELAMER 2019-0 Yes Take by Unive rs HCL ORAL 6-08 mouth. ity of 09:19: [address] METOPROLOL 2019-0 Yes Take by Univ ers TARTRATE 6-08 mouth. ity of ORAL 09:19: [address] terazosin 2019-0 Yes Take by Unive rs HCl (HYTRIN 6-08 mouth. ity of ORAL) 09:19: [address] No known No Univers medications [facility] No known No Univers medications [facility] No known No [facility] known No [facility] No known No [facility] medications [facility] No known No Univers medications [facility] Vital Signs Vital Name Observation Time Observation Value Comments Source Heart rate 2022-08-23 16:02:00 76 /min [facility] Oxygen saturation in 2022-08-23 16:02:00 98 /min [facility] Arterial blood by [facility] Pulse oximetry [place] Systolic blood 2022-08-23 15:59:00 107 mm[Hg] Univer sity of pressure [facility] Diastolic blood 2022-08-23 15:59:00 71 mm[facility]Hg[facility] Respiratory rate 2022-08-23 15:57:00 18 /min [facility] Body temperature 2022-08-23 11:32:00 36.22 [place] [facility] Body height 2022-08-20 15:00:00 182.9 cm [facility] Body weight 2022-08-20 15:00:00 73.029 kg [facility] BMI 2022-08-20 15:00:00 21.84 kg/m2 [facility] Heart rate 2022-08-23 15:15:00 66 /min [facility] [place] [facility] Respiratory rate 2022-08-23 15:15:00 21 /min [facility] ersity [facility] [place] [facility] Oxygen saturation in 2022-08-23 15:15:00 100 /min University of Arterial blood by [facility] Pulse oximetry Branch Systolic blood 2022-08-23 15:14:00 129 mm[Hg] Univer sity of pressure [place] [facility] Diastolic blood 2022-08-23 15:14:00 87 mm[Hg] Unive rsity of pressure [place] [facility] Body temperature 2022-08-23 11:32:00 36.22 [place] [facility] ersity [facility] [place] [facility] Body height 2022-08-20 15:00:00 182.9 cm [facility] [place] [facility] Body weight 2022-08-20 15:00:00 73.029 kg [facility] [place] [facility] BMI 2022-08-20 15:00:00 21.84 kg/m2 [facility] [place] [facility] Respiratory rate 2022-08-23 14:53:00 33 /min Univ ersity [facility] [place] [facility] Systolic blood 2022-07-26 13:22:00 188 mm[Hg] Univer sity of pressure [place] [facility] Diastolic blood 2022-07-26 13:22:00 144 mm[Hg] Unive rsity of pressure [place] [facility] Heart rate 2022-07-26 13:00:00 80 /min [facility] [place] [facility] Body temperature 2022-07-26 13:00:00 37.39 [place] [facility] [place] [facility] Respiratory rate 2022-07-26 13:00:00 21 /min Univ ersity [facility] [place] [facility] Oxygen saturation in 2022-07-26 13:00:00 99 /min University of Arterial blood by [facility] Pulse oximetry Branch Body height 2022-07-24 17:00:00 182.9 cm [facility] [place] [facility] Body weight 2022-07-24 17:00:00 73.029 kg [facility] [place] [facility] BMI 2022-07-24 17:00:00 21.84 kg/m2 [facility] [place] [facility] Systolic blood 2022-06-10 13:17:00 137 mm[Hg] Univer sity of pressure [place] [facility] Diastolic blood 2022-06-10 13:17:00 86 mm[Hg] Unive rsity of pressure [facility] Heart rate 2022-06-10 13:17:00 89 /min Universi ty [facility] Body temperature 2022-06-10 13:17:00 37.17 [place] Univ ersity of [facility] Respiratory rate 2022-06-10 13:17:00 18 /min [facility] Oxygen saturation in 2022-06-10 13:17:00 96 /min [facility] blood by [facility] Pulse oximetry Branch Body weight 2022-06-10 10:30:00 72 kg Universi ty [facility] BMI 2022-06-10 10:30:00 21.53 kg/m2 Universi [facility] Body height 2022-06-09 16:31:00 [facility] 2021-04-05 15:33:00 188 cm WEIGHT 2021-04-05 [...] 2019-08-19 16:08:00 121 mm[Hg] Univer sity of pressure [place] [facility] [place] Diastolic blood 2019-08-19 16:08:00 57 mm[Hg] Unive rsity of pressure [facility] Heart rate 2019-08-19 16:08:00 76 /min [facility] [place] [facility] [place] Body temperature 2019-08-19 16:08:00 36.5 [place] [facility] [place] [facility] Respiratory rate 2019-08-19 16:08:00 18 /min Univ ersity of [facility] Body height 2019-08-19 16:08:00 180.3 cm [facility]i [facility] [place] [facility] [place] Body weight 2019-08-19 16:08:00 86.773 kg [facility] [place] [facility] [place] BMI 2019-08-19 16:08:00 26.68 kg/m2 [facility] [place] [facility] [place] Systolic blood 2022-07-26 13:22:00 188 mm[Hg] Univer sity of pressure [facility] Diastolic blood 2022-07-26 13:22:00 144 mm[Hg] Unive rsity of pressure [facility] Heart rate 2022-07-26 13:00:00 80 /min [facility]i [facility] [place] [facility] [place] Body temperature 2022-07-26 13:00:00 37.39 [place] Univ ersity of [facility] Respiratory rate 2022-07-26 13:00:00 21 /min Univ ersity of [facility] Oxygen saturation in 2022-07-26 13:00:00 99 /min University Arterial blood by [facility] Pulse oximetry Branch Body height 2022-07-24 17:00:00 182.9 cm [facility] [place] [facility] [place] Body weight 2022-07-24 17:00:00 73.029 kg [facility] [place] [facility] [place] BMI 2022-07-24 17:00:00 21.84 kg/m2 Universi ty of [facility] Heart rate 2021-02-02 12:00:00 63 /min [facility] Body temperature 2021-02-02 12:00:[address] [facility] Respiratory rate 2021-02-02 12:00:00 21 /min [facility] Oxygen saturation in 2021-02-02 12:00:00 100 /min [facility] Arterial blood by Medical Ce nter Pulse oximetry Heart rate 2021-02-02 10:45:00 63 /min [facility] Respiratory rate 2021-02-02 10:45:00 20 /min [facility] Oxygen saturation in 2021-02-02 10:45:00 100 /min [facility] Arterial blood by Medical Ce nter Pulse oximetry Body temperature 2021-02-02 08:00:[address] [facility] Systolic blood 2021-02-02 03:46:00 172 mm[Hg] [facility] Diastolic blood 2021-02-02 03:46:00 89 mm[Hg] [facility] Body weight 2021-01-31 06:00:[address] [facility] BMI 2021-01-31 06:00:00 19.88 kg/m2 [facility] Body height 2021-01-10 15:00:[address] [facility] Procedures Procedure Date / Time Performing Clinician Source Performed POCT GLUCOSE (AUTOMATED) 2022-08-23 [facility] 15:01:00 Medical [place] POCT GLUCOSE (AUTOMATED) 2022-08-23 [facility] 15:01:00 Medical Branch INTUBATION 2022-08-23 [facility] 13:02:[address] [facility] ARTERIOVENOUS FISTULA 2022-08-23 [place] Jose [facility] CREATION 12:31:00 Medical Branch POTASSIUM SERUM 2022-08-23 Leonidas Figueroa [facility] 12:08:[address] [facility] POTASSIUM SERUM 2022-08-23 Leonidas Figueroa [facility] 12:08:[address] [facility] POTASSIUM SERUM 2022-08-23 [place] [facility] [place] 11:39:00 Medical [place] [facility]SIUM SERUM [facility] Branch DAY SURGERY - ADC 2022-08-23 Doctor Unassigned, [facility] 05:01:00 [place] [facility] POTASSIUM SERUM 2022-07-26 [facility] 13:20:00 [facility] Branch POTASSIUM SERUM 2022-07-[facility] 13:20:00 Medical Branch COMP. METABOLIC PANEL 2022-07-11 [place] [facility] ([id number]) 21:48:00 Medical Branch PROTHROMBIN TIME / INR 2022-07-11 [place] [facility] 21:48:00 Medical Branch CBC WITH DIFF 2022-07-11 [place] [facility] 21:48:00 Medical Branch HB ABO GROUPING 2022-07-11 [place] [facility] 21:43:00 Medical Branch NOTICE OF PRIVACY PRACTICES 2022-07-11 Doctor Unassigned, [facility] 21:21:35 [place] [facility] CONSENT/REFUSAL FOR 2022-07-11 Doctor Unassigned, [facility] DIAGNOSIS AND TREATMENT 21:21:21 [place] [facility] ASSIGNMENT OF BENEFITS 2022-07-11 Doctor Unassigned, [facility] 21:21:04 [place] [facility] ASSIGNMENT OF BENEFITS 2022-07-11 Doctor Unassigned, [facility] 21:21:04 [place] [facility] PATIENT FINANCIAL 2022-06-28 Doctor Unassigned, [facility] POLICY 20:02:56 [place] [facility] NO SHOW OR MISSED 2022-06-28 Doctor Unassigned, [facility] APPOINTMENT POLICY 20:02:40 [place] [facility]anc h ACKNOWLEDGEMENT CONSENT/REFUSAL FOR 2022-06-28 Doctor Unassigned, [facility] DIAGNOSIS AND TREATMENT 20:02:21 [place] [facility] ASSIGNMENT OF BENEFITS 2022-06-28 Doctor Unassigned, [facility] 20:01:53 [facility] ASSIGNMENT OF BENEFITS 2022-06-28 Doctor Unassigned, [facility] 20:01:53 [facility] BASIC METABOLIC PANEL (NA, 2022-06-10 Anatoliy Kapadia [facility] K, CL, CO2, GLUCOSE, BUN, 11:42:00 Medica l Branch CREATININE, CA) BASIC METABOLIC PANEL (NA, 2022-06-10 Anatoliy Kapadia [facility] K, CL, CO2, GLUCOSE, BUN, 11:42:00 Medica l Branch CREATININE, CA) HEPATITIS B SURFACE ANTIBODY 2022-06-10 [facility] 10:17:00 Medical Branch HEPATITIS B SURFACE ANTIGEN 2022-06-10 Kemal, [facility] 10:17:00 Medical Branch HEPATITIS B SURFACE ANTIGEN 2022-06-10 [facility], [facility] 10:17:00 Medical Branch HEPATITIS B SURFACE ANTIBODY 2022-06-10 [facility], [facility] 10:17:00 Medical Branch PHOSPHORUS 2022-06-10 [facility]y [facility]ia [facility] [place] 04:34:00 [facility] MAGNESIUM 2022-06-10 [facility]y [facility] [place] [facility] 04:34:00 [facility] TROPONIN I 2022-06-10 Anatoliy [facility]adia [facility] 04:34:00 [facility] HEPATIC FUNCTION PANEL 2022-06-10 Anatoliy Kapadia [facility] y [facility] ([id number]) (ALB,T.PRO,BILI 04:34:00 Medical Branch T,BU/BC,ALT,AST,ALK PHOS) BASIC METABOLIC PANEL (NA, 2022-06-10 Anatoliy Kapadia [facility] [place] K, CL, CO2, GLUCOSE, BUN, 04:34:00 Medica l Branch CREATININE, CA) CBC WITH DIFF 2022-06-10 Anatoliy Kapadia [facility] 04:34:00 [facility] GLYCOSYLATED HEMOGLOBIN 2022-06-10 Anatoliy Kapadia [facility] (A1C) 04:34:00 Medical Branch PROTHROMBIN TIME / INR 2022-06-10 Anatoliy Kapadia [facility] 04:34:00 Medical Branch ACTIVATED PARTIAL THRMPLAS 2022-06-10 Anatoliy Kapadia [facility] [place] KATHERINE 04:34:00 Medical Branch CBC WITH DIFF 2022-06-10 Anatoliy Kapadia [facility] 04:34:00 [facility] BASIC METABOLIC PANEL (NA, 2022-06-10 Anatoliy Kapadia [facility] [place] K, CL, CO2, GLUCOSE, BUN, 04:34:00 Medica l Branch CREATININE, CA) HEPATIC FUNCTION PANEL 2022-06-10 Anatoliy Kapadia [facility] ([id number]) (ALB,T.PRO,BILI 04:34:00 Medical Branch T,BU/BC,ALT,AST,ALK PHOS) MAGNESIUM 2022-06-10 Anat[place]y Kapadia [facility] [place] 04:34:00 [facility] PROTHROMBIN TIME / INR 2022-06-10 [facility] 04:34:00 Medical Branch ACTIVATED PARTIAL THRMPLAS 2022-06-10 Anatoliy Kapadia [facility] KATHERINE 04:34:00 Medical Branch PHOSPHORUS 2022-06-10 [facility] [place] 04:34:00 [facility] GLYCOSYLATED HEMOGLOBIN 2022-06-10 Kang [facility] (A1C) 04:34:00 Medical Branch TROPONIN I 2022-06-10 Kang [facility] [place] 04:34:00 Medical Branch EKG-12 LEAD 2022-06-10 Allan [facility] [place] 03:07:48 Medical Branch POTASSIUM SERUM 2022-06-10 [facility] [place] 00:12:00 [facility] FERRITIN SERUM 2022-06-10 [facility] [place] 00:12:00 [facility] IRON PANEL 2022-06-10 Kang [facility] [place] 00:12:00 Medical Branch POTASSIUM SERUM 2022-06-10 Allan [facility] [place] 00:12:00 [facility] IRON PANEL 2022-06-10 Kang [facility] [place] 00:12:00 [facility] FERRITIN SERUM 2022-06-10 [facility] [place] 00:12:00 [facility] POCT GLUCOSE (AUTOMATED) 2022-06-09 [facility] 23[facility] POCT GLUCOSE (AUTOMATED) 2022-06-09 [facility] 23:42:00 Medical Branch POCT GLUCOSE (AUTOMATED) 2022-06-09 [facility] 22:56:00 Medical Branch POCT GLUCOSE (AUTOMATED) 2022-06-09 [facility] 22:56:00 Medical Branch TROPONIN I 2022-06-09 Allan [facility] 21:59:00 Medical Branch BASIC METABOLIC PANEL (NA, 2022-06-09 [facility] K, CL, CO2, GLUCOSE, BUN, 21:59:00 [facility] CREATININE, CA) TROPONIN I 2022-06-09 Allan [facility] 21:59:00 [facility] BASIC METABOLIC PANEL (NA, 2022-06-09 [facility] K, CL, CO2, GLUCOSE, BUN, 21:59:00 Medica l [place] CREATININE, CA) POCT GLUCOSE(AGE 0-30DAYS) 2022-06-09 [facility] 21:08:00 Medical Branch POCT GLUCOSE(AGE 0-30DAYS) 2022-06-09 [facility] 21:08:00 Medical Branch POCT GLUCOSE (AUTOMATED) 2022-06-09 [facility] 20:59[facility]00 [facility] POCT GLUCOSE (AUTOMATED) 2022-06-09 [facility] 20:59:00 Medical Branch POCT GLUCOSE(AGE >30DAYS) 2022-06-09 Allan [facility] 20:34:00 Medical Branch POCT GLUCOSE(AGE >30DAYS) 2022-06-09 [facility] 20:34:00 Medical Branch POCT GLUCOSE (AUTOMATED) 2022-06-09 [facility] 20:30:00 Medical Branch POCT GLUCOSE (AUTOMATED) 2022-06-09 [facility] 20:30:00 Medical Branch POCT GLUCOSE(AGE >30DAYS) 2022-06-09 [facility] 20:16:00 Medical Branch POCT GLUCOSE(AGE >30DAYS) 2022-06-09 [facility] 20:16:00 Medical Branch POCT GLUCOSE (AUTOMATED) 2022-06-09 [facility] 20:11:00 [facility] POCT GLUCOSE (AUTOMATED) 2022-06-09 [facility] 20:11:00 Medical Branch POCT GLUCOSE(AGE >30DAYS) 2022-06-09 [facility] 19:29:00 Medical Branch POCT GLUCOSE(AGE >30DAYS) 2022-06-09 [facility] 19:29:00 Medical Branch POCT GLUCOSE (AUTOMATED) 2022-06-09 [facility] 19:27:00 Medical Branch POCT GLUCOSE (AUTOMATED) 2022-06-09 [facility] 19:27:00 Medical Branch POCT GLUCOSE (AUTOMATED) 2022-06-09 [facility] 18:20:00 Medical Branch POCT GLUCOSE (AUTOMATED) 2022-06-09 [facility] 18:20:00 [facility] XR CHEST 1 VW 2022-06-09 [facility] 17[facility]10[facility]31 [facility] XR CHEST 1 VW 2022-06-09 [facility] [place] 17:10:31 [facility] Branch TROPONIN I 2022-06-09 [facility] [place] 17:04:00 [facility] Branch COMP. METABOLIC PANEL 2022-06-09 [id number] 17:04:00 [facility] CBC WITH DIFF 2022-06-09 [facility] 17:04[facility]00 [facility] N-TERMINAL PRO-BNP 2022-06-09 [facility] 17:04:00 [facility] CBC WITH DIFF 2022-06-09 [facility] [place] 17:04:00 [facility] COMP. METABOLIC PANEL 2022-06-09 [facility] ([id number] 17:04:00 [facility] TROPONIN I 2022-06-09 [facility] [place] 17:04:00 [facility] N-TERMINAL PRO-BNP 2022-06-09 [facility] 17:04:00 [facility] HB ECG ROUTINE & RHYTHM 2022-06-09 [facility] 16:56:42 [facility] Branch HB ECG ROUTINE & RHYTHM 2022-06-09 [facility] [place] [facility] 16:56:42 [facility] Branch CONSENT/REFUSAL FOR 2022-06-09 Doctor Unassigned, [facility] DIAGNOSIS AND TREATMENT 16:27:11 [facility] CONSENT/REFUSAL FOR 2022-06-09 Doctor Unassigned, [facility] DIAGNOSIS AND TREATMENT 16:27:11 [facility] HOSPITAL ADMISSION 2022-06-09 Doctor Unassigned, [facility] 06:01:00 [facility] REFERRAL- REQUEST/RESPONSE 2022-05-01 Doctor Unassigned, [facility] 06:01:00 [facility] REFERRAL- REQUEST/RESPONSE 2022-05-01 Doctor Unassigned, [facility] 06:01:00 [facility] POCT-GLUCOSE METER 2021-02-[address] [facility] 07:25:00 [facility] POCT-GLUCOSE METER 2021-02-[address] [facility] 03:45:00 [facility] PROTHROMBIN TIME/INR 2021-02-[address] [facility] 03:36:[address] [facility] CALCIUM, IONIZED 2021-02-02 Beram, Jessehad [facility] 03:36:[address] [facility] CBC W/PLT COUNT & AUTO 2021-02-[address] [facility] DIFFERENTIAL 03:36:00 [facility] MAGNESIUM 2021-02-[address] [facility] 03:36:00 [facility] PHOSPHORUS 2021-02-[address] [facility] 03:36:00 [facility] BASIC METABOLIC PANEL (7) 2021-02-[address] [facility] 03:36:00 [facility] PTH, INTACT 2021-02-[address] [facility] 03:36:[address] [facility] XR CHEST 1 VIEW PORTABLE / 2021-02-[address] [facility] BEDSIDE 00:16:00 [facility] POCT-GLUCOSE METER 2021-02-[address] [facility] 23:57:00 [facility] POCT-GLUCOSE METER 2021-02-[address] [facility] 15:26:00 [facility] HEMODIALYSIS INPATIENT 2021-02-[address] [facility] 14:59:[address] [facility] POCT-GLUCOSE METER 2021-02-[address] [facility] 14:47:00 [facility] CT CHEST WITHOUT IV CONTRAST 2021-02-[address] [facility] 12:29:00 [facility] POCT-GLUCOSE METER 2021-02-[address] [facility] 11:36:00 [facility] CALCIUM, IONIZED 2021-02-01 Beram, Jihad [facility] 04:21:[address] [facility] CBC W/PLT COUNT & AUTO 2021-02-01 [facility] DIFFERENTIAL 04:21:00 [facility] MAGNESIUM 2021-02-01 [facility] Kasia Mcgrath [facility] 04:21:00 [facility] PHOSPHORUS 2021-02-01 [facility] 04:21:00 [facility] BASIC METABOLIC PANEL (7) 2021-02-[address] [facility] 04:21:00 [facility] PROTHROMBIN TIME/INR 2021-02-[address] [facility] 04:21:[address] [facility] POCT-GLUCOSE METER 2021-02-[address] [facility] 01:05:00 [facility] XR CHEST 1 VIEW PORTABLE / 2021-02-[address] [facility] BEDSIDE 00:21:00 [facility] POCT-GLUCOSE METER 2021-01-[address] [facility] 21:51:00 [facility] HEMOGLOBIN AND HEMATOCRIT 2021-01-[address] [facility] 17:12:00 [facility] POCT-GLUCOSE METER 2021-01-[address] [facility] 11:25:00 [facility] POCT-GLUCOSE METER 2021-01-[address] [facility] 07:13:00 [facility] PT/APTT 2021-01-[address] [facility] 04:25:00 [facility] APTT 2021-01-31 Beram, Joyceremy [facility] 04:25:[address] [facility] BLOOD GAS, ARTERIAL 2021-01-31 Beram, Jihad [facility] 04:25:[address] [facility] CALCIUM, IONIZED 2021-01-31 Beram, Jihad [facility] 04:25:00 [facility] LACTIC ACID, ARTERIAL 2021-01-31 [facility] Mcgrath, Kasia [facility] 04:25:00 [facility] CBC W/PLT COUNT & AUTO 2021-01-31 [facility], Kasia [facility] DIFFERENTIAL 04:25:00 [facility] MAGNESIUM 2021-01-31 [facility] Kasia [facility] 04:25:00 [facility] PHOSPHORUS 2021-01-31 [facility] 04:25:00 [facility] BASIC METABOLIC PANEL (7) 2021-01-[address] [facility] 04:25:00 [facility] XR CHEST 1 VIEW PORTABLE / 2021-01-31 Richey Mcgrath, Kasia [facility] 00:45:00 [facility] PREPARE LEUKO-REDUCED RBC 2021-01-[address] [facility] 23:54:[address] [facility] BLOOD GAS, ARTERIAL 2021-01-[address] [facility] 21:04:00 [facility] BLOOD GAS, ARTERIAL 2021-01-[address] [facility] 21:03:00 [facility] SODIUM NA-STAT LAB 2021-01-[address] [facility] 21:03:00 [facility] POTASSIUM-STAT LAB 2021-01-[address] [facility] 21:03:00 [facility] GLUCOSE-STAT LAB 2021-01-[address] [facility] 21:03:00 [facility] HGB/HCT (H&H) - STAT LAB 2021-01-[address] [facility] 21:03:00 [facility] PROTHROMBIN TIME/INR 2021-01-[address] [facility] 19:20:00 [facility] MAGNESIUM 2021-01-30 Beram, Jihad [facility] 19:20:[address] [facility] CALCIUM, IONIZED 2021-01-30 Beram, Jihad [facility] 19:20:[address] [facility] BASIC METABOLIC PANEL (7) 2021-01-[address] [facility] 19:20:00 [facility] POCT-GLUCOSE METER 2021-01-30 Valluri, Maura Nixon [facility] 18:[facility]:[address] [facility] HEMODIALYSIS INPATIENT 2021-01-[address] [facility] 14:24:[address] [facility] POCT-GLUCOSE METER 2021-01-30 Valluri, Maura Nixon [facility] 12:27:[address] [facility] PROTHROMBIN TIME/INR 2021-01-[address] [facility] 12:18:00 [facility] POCT-GLUCOSE METER 2021-01-30 Valluri, Maura [facility]iletik [facility] 06:08:[address] [facility] BLOOD GAS, ARTERIAL 2021-01-30 Beram, Jihad [facility] 04:30:00 [facility] BLOOD GAS, ARTERIAL 2021-01-30 Beram, Jihad [facility] 02:05:[address] [facility] CALCIUM, IONIZED 2021-01-30 Beram, Jihad [facility] 02:05:[address] [facility] LACTIC ACID, ARTERIAL 2021-01-30 Richeybulmaro Mcgrath, Kasia [facility] 02:05:00 [facility] OXYGEN SATURATION, MEASURED 2021-01-[address] [facility] 02:05:00 [facility] PT/APTT 2021-01-[address] [facility] 02:04:00 [facility] APTT 2021-01-30 Beram, Jessehad [facility] 02:04:[address] [facility] CBC W/PLT COUNT & AUTO 2021-01-[address] [facility] DIFFERENTIAL 02:04:00 [facility] MAGNESIUM 2021-01-30 [facility] Mcgrath, Kasia [facility] 02:04:00 [facility] PHOSPHORUS 2021-01-30 Richeybulmaro Pickarda, Kasia [facility] 02:04:00 [facility] BASIC METABOLIC PANEL (7) 2021-01-30 [facility] AlcidesKasia [facility] 02:04:00 [facility] XR CHEST 1 VIEW PORTABLE / 2021-01-30 [facility] Alcides Kasia [facility] 00:36:00 [facility] POCT-GLUCOSE METER 2021-01-[address] [facility] 23:18:[address] [facility] TRANSFUSE LEUKO-REDUCED RED 2021-01-[address] [facility] BLOOD CELLS 23:08:[address] [facility] CBC W/PLT COUNT & AUTO 2021-01-29 [facility] DIFFERENTIAL 19:08:00 [facility] TRANSFUSE LEUKO-REDUCED RED 2021-01-29 Dilshad Vera Back [facility] BLOOD CELLS 18:10:59 [facility] POCT-GLUCOSE METER 2021-01-29 Valluri, Maura Nixon [facility] 18:04:00 [facility] PROTHROMBIN TIME/INR 2021-01-29 Dilshad Vera Back [facility] 17:57:00 [facility] CT BRAIN WITHOUT IV CONTRAST 2021-01-29 Dilshad Vera Back [facility] 17:28:00 [facility] CTA BRAIN 2021-01-29 Dilshad Vera Back [facility] 17:28:00 [facility] APTT 2021-01-29 Beram, Jessehad [facility] 15:06:00 [facility] PROTHROMBIN TIME/INR 2021-01-29 Dilshad Vera Nazanin [facility] 15:06:00 [facility] ABORH, MANUAL 2021-01-29 Dilshad Vera Back [facility] 13:49:[address] [facility] POCT-GLUCOSE METER 2021-01-29 Valluri, Maura Nixon [facility] 12:15:00 [facility] CT BRAIN WITHOUT IV CONTRAST 2021-01-[address] [facility] 09:32:[address] [facility] RED BLOOD CELL COUNT 2021-01-[address] [facility] 09:12:[address] [facility] PT/APTT 2021-01-[address] [facility] 09:12:00 [facility] POCT-GLUCOSE METER 2021-01-[address] [facility] 07:18:00 [facility] PHOSPHORUS 2021-01-[address] [facility] 06:11:00 [facility] MAGNESIUM 2021-01-[address] [facility] 06:11:00 [facility] APTT 2021-01-[address] [facility] 06:11:[address] [facility] BLOOD GAS, ARTERIAL 2021-01-29 Bob, Luz [facility] 06:11:[address] [facility] CALCIUM, IONIZED 2021-01-29 [facility], Luz [facility] 06:11:[address] [facility] LACTIC ACID, ARTERIAL 2021-01-29 RicheyKasia Aguirre [facility] 06:11:00 [facility] OXYGEN SATURATION, MEASURED 2021-01-[address] [facility] 06:11:00 [facility] CBC W/PLT COUNT & AUTO 2021-01-[address] [facility] DIFFERENTIAL 06:11:00 [facility] HEPATIC FUNCTION PANEL 2021-01-[address] [facility] 06:11:00 [facility] DIGOXIN LEVEL 2021-01-[address] [facility] 06:11:00 [facility] BASIC METABOLIC PANEL (7) 2021-01-[address] [facility] 06:11:00 [facility] XR CHEST 1 VIEW PORTABLE / 2021-01-[address] [facility] [facility] 00:52:00 [facility] POCT-GLUCOSE METER 2021-01-[address] [facility] 00:43:[address] [facility] POCT-GLUCOSE METER 2021-01-[address] [facility] [facility] 18:17:00 [facility] BLOOD GAS, ARTERIAL 2021-01-28 Beram, Jessehad [facility] 18:13:00 [facility] POTASSIUM 2021-01-28 Valluri, Maura Lillyk [facility] 18:11:00 [facility] MAGNESIUM 2021-01-28 Nesarah, Rafater [facility] 18:11:00 [facility] PHOSPHORUS 2021-01-28 Neagra, Christopher [facility] 18:11:00 [facility] SODIUM 2021-01-28 Neagra, Christopher [facility] 18:11:00 [facility] XR CHEST 1 VIEW PORTABLE / 2021-01-28 [facility]kson [facility] 17:33:00 [facility] HEMODIALYSIS INPATIENT 2021-01-28 Luisa, Vasile [facility] 12:55:00 [facility] POCT-GLUCOSE METER 2021-01-28 Arlensai, Maura Lillyk [facility] 11:44:00 [facility] BASIC METABOLIC PANEL (7) 2021-01-28 Luisa, Vasile [facility] 08:38:00 [facility] MAGNESIUM 2021-01-28 Neagra, Rafater [facility] 08:38:00 [facility] PHOSPHORUS 2021-01-28 Neagra, Christopher [facility] 08:38:00 [facility] PROTHROMBIN TIME/INR 2021-01-[address] [facility] 08:36:00 [facility] POCT-GLUCOSE METER 2021-01-[address] [facility] 06:13:00 [facility] POTASSIUM 2021-01-28 Valluri, Maura Lillyk [facility] 04:58:00 [facility] APTT 2021-01-28 Beram, Jijoe [facility] 04:58:00 [facility] BLOOD GAS, ARTERIAL 2021-01-28 Beram, Jihad [facility] 04:58:00 [facility] LACTIC ACID, ARTERIAL 2021-01-28 Kasia Rubio [facility] 04:58:00 [facility] OXYGEN SATURATION, MEASURED 2021-01-28 Richey Mcgrath, Kasia [facility] 04:58:00 [facility] CBC W/PLT COUNT & AUTO 2021-01-28 [facility] DIFFERENTIAL 04:58:00 [facility] MAGNESIUM 2021-01-28 [facility] Mcgrath, Kasia [facility] 04:58:00 [facility] PHOSPHORUS 2021-01-28 [facility] Mcgrath, Kasia [facility] 04:58:00 [facility] HEPATIC FUNCTION PANEL 2021-01-[address] [facility] 04:58:00 [facility] PROTHROMBIN TIME/INR 2021-01-[address] [facility] 04:58:00 [facility] CALCIUM, IONIZED 2021-01-[address] [facility] 04:57:[address] [facility] XR CHEST 1 VIEW PORTABLE / 2021-01-28 [facility] Kasia [facility] 03:13:00 [facility] POCT-GLUCOSE METER 2021-01-27 Valluri, Sri Nixon [facility] 23:51:[address] [facility] POTASSIUM 2021-01-27 Valluri, Sri Nixon [facility] 20:43:00 [facility] BLOOD GAS, ARTERIAL 2021-01-27 Uk, Nduka Bowen [facility] 20:43:00 [facility] LACTIC ACID, ARTERIAL 2021-01-27 Uk, Nduka Bowen [facility] 20:43:00 [facility] CBC (HEMOGRAM ONLY) 2021-01-27 Ukzo, Nduka Bowen [facility] 20:43:00 [facility] XR CHEST 1 VIEW PORTABLE / 2021-01-27 Ukah, Nduka [facility]en [facility] 20:25:00 [facility] POTASSIUM 2021-01-27 Valluri, Sri Nixon [facility] 18:02:00 [facility] MAGNESIUM 2021-01-27 Neagra, Christopher [facility] 18:02:00 [facility] PHOSPHORUS 2021-01-27 Neagra, Christopher [facility] 18:02:00 [facility] [place] SODIUM 2021-01-27 Neagra, Christopher [facility] 18:02:00 [facility] POCT-GLUCOSE METER 2021-01-[address] [facility] 11:42:00 [facility] MAGNESIUM 2021-01-27 Bob, Luz [facility] 11:18:[address] [facility] PHOSPHORUS 2021-01-[address] [facility] 11:18:00 [facility] Center POTASSIUM 2021-01-27 Arlenluana maria, Maura Hailetik [facility] 11:18:00 [facility] PROTHROMBIN TIME/INR 2021-01-[address] [facility] 06:40:00 [facility] BASIC METABOLIC PANEL (7) 2021-01-[address] [facility] 06:40:00 [facility] POTASSIUM 2021-01-27 Beatriz, Maura Hailetik [facility] 03:31:00 [facility] APTT 2021-01-27 [facility], Luz [facility] 03:31:[address] [facility] CALCIUM, IONIZED 2021-01-27 [facility], Luz [facility] 03:31:[address] [facility] LACTIC ACID, ARTERIAL 2021-01-27 [facility] Kasia Mcgrath [facility] 03:31:00 [facility] OXYGEN SATURATION, MEASURED 2021-01-[address] [facility] 03:31:00 [facility] CBC W/PLT COUNT & AUTO 2021-01-27 [facility] Lisbet Mcgratha [facility]FFER[facility] 03:31:00 [facility] MAGNESIUM 2021-01-27 Richey Mcgrath, Kasia [facility] 03:31:00 [facility] PHOSPHORUS 2021-01-27 [facility] Mcgrath, Kasia [facility] 03:31:00 [facility] HEPATIC FUNCTION PANEL 2021-01-[address] [facility] 03:31:00 [facility] BLOOD GAS, ARTERIAL 2021-01-27 [facility], Luz [facility] 03:30:[address] [facility] XR CHEST 1 VIEW PORTABLE / 2021-01-[address] [facility] 00:45:00 [facility] [place] INSERT 2021-01-[address] [facility] CATH,ART,PERCUT,SHORTTERM 23:51:37 [facility] POCT-GLUCOSE METER 2021-01-26 Valluri, Sri Nixon [facility] 22:02:00 [facility] PHOSPHORUS 2021-01-26 Neagra, Christopher [facility] 20:28:00 [facility] CALCIUM, IONIZED 2021-01-26 Beram, Jihad [facility] 20:28:00 [facility] MAGNESIUM 2021-01-26 Beram, Jihad [facility] 20:28:00 [facility] BASIC METABOLIC PANEL (7) 2021-01-[address] [facility] 20:28:00 [facility] POTASSIUM 2021-01-26 Valluri, Sri Nixon [facility] 16:49:00 [facility] POCT-GLUCOSE METER 2021-01-26 Valluri, Sri Nixon [facility] 16:41:00 [facility] POTASSIUM 2021-01-26 Valluri, Sri Nixon [facility] 12:13:00 [facility] POCT-GLUCOSE METER 2021-01-26 Valluri, Sri Nixon [facility] 12:06:00 [facility] PREPARE RBC 2021-01-26 Omar, Tereza [facility] 08:26:00 [facility] PREPARE RBC 2021-01-[address] [facility] 08:24:00 [facility] MAGNESIUM 2021-01-26 Neagra, Christopher [facility] 08:13:00 [facility] PHOSPHORUS 2021-01-26 Neagra, Christopher [facility] 08:13:00 [facility] POTASSIUM 2021-01-26 Valluri, Sri Nixon [facility] 08:13:00 [facility] POCT-GLUCOSE METER 2021-01-26 Valluri, Sri Nixon [facility] 08:[facility]00 [facility] BLOOD GAS, ARTERIAL 2021-01-26 Beram, Jihad [facility] 06:16:00 [facility] BLOOD GAS, ARTERIAL 2021-01-26 Beram, Jihad [facility] 04:48:00 [facility] BLOOD GAS, ARTERIAL 2021-01-26 Beram, Jihad [facility] 04:04:00 [facility] APTT 2021-01-26 Beram, Jihad [facility] 04:02:[address] [facility] CALCIUM, IONIZED 2021-01-26 Beram, Jihad [facility] 04:02:[address] [facility] LACTIC ACID, ARTERIAL 2021-01-26 Richey Mcgrath, Kasia [facility] 04:02:00 [facility] OXYGEN SATURATION, MEASURED 2021-01-26 Richey Mcgrath, Kasia [facility] 04:02:00 [facility] CBC W/PLT COUNT & AUTO 2021-01-26 Richey Mcgrath, Kasia [facility] DIFFERENTIAL 04:02:00 [facility] MAGNESIUM 2021-01-26 Richey Mcgrath, Kasia [facility] 04:02:00 [facility] PHOSPHORUS 2021-01-26 Richey Mcgrath, Kasia [facility] 04:02:00 [facility] PROTHROMBIN TIME/INR 2021-01-26 Richey Mcgrath, Kasia [facility] 04:02:00 [facility] DIGOXIN LEVEL 2021-01-26 Jeanette, Zaira [facility] 04:02:[address] [facility] BASIC METABOLIC PANEL (7) 2021-01-[address] [facility] 04:02:[address] [facility] XR CHEST 1 VIEW PORTABLE / 2021-01-26 Richey Lisbet Mcgratha [facility] BEDSIDE 00:20:00 [facility] POCT-GLUCOSE METER 2021-01-25 Valluri, Maura Nixon [facility] 21:59:[address] [facility] BASIC METABOLIC PANEL (7) 2021-01-25 Richey Mcgrath, Kasia [facility] 20:28:00 [facility] MAGNESIUM 2021-01-25 Beram, Jihad [facility] 20:28:[address] [facility] POCT-GLUCOSE METER 2021-01-25 Valluri, Sri Nixon [facility] 18:07:[address] [facility] XR ABDOMEN / KUB 1 VIEW 2021-01-[address] [facility] 18:01:[address] [facility] POTASSIUM 2021-01-25 Neagra, Christopher [facility] 16:07:00 [facility] PHOSPHORUS 2021-01-25 Beram, Jihad [facility] 16:07:00 [facility] MAGNESIUM 2021-01-25 Neagra, Christopher [facility] 16:07:00 [facility] SODIUM 2021-01-25 Neagra, Christopher [facility] 16:07:00 [facility] BLOOD GAS, ARTERIAL 2021-01-25 Beram, Jihad [facility] 16:07:00 [facility] CBC W/PLT COUNT & AUTO 2021-01-[address] [facility] DIFFERENTIAL 13:55:00 [facility] POCT-GLUCOSE METER 2021-01-25 Valluri, Sri Nixon [facility] 13:20:00 [facility] PHOSPHORUS 2021-01-25 Beram, Jihad [facility] 11:42:00 [facility] BASIC METABOLIC PANEL (7) 2021-01-25 Neagra, Rafater [facility] 11:42:00 [facility] MAGNESIUM 2021-01-25 Neagra, Christopher [facility] 11:42:00 [facility] CALCIUM, IONIZED 2021-01-25 Neagra, Christopher [facility] 11:42:00 [facility] POCT-GLUCOSE METER 2021-01-25 Valluri, Sri Nixon [facility] 08:07:00 [facility] BLOOD GAS, ARTERIAL 2021-01-25 Beram, Jihad [facility] 03:29:00 [facility] APTT 2021-01-25 Beram, Jihad [facility] 03:28:00 [facility] CALCIUM, IONIZED 2021-01-25 Beram, Jihad [facility] 03:28:00 [facility] LACTIC ACID, ARTERIAL 2021-01-25 Richey Mcgrath, Kasia [facility] 03:28:00 [facility] OXYGEN SATURATION, MEASURED 2021-01-25 Richey Mcgrath, Kasia [facility] 03:28:00 [facility] CBC W/PLT COUNT & AUTO 2021-01-[address] [facility] DIFFERENTIAL 03:28:00 [facility] BASIC METABOLIC PANEL (7) 2021-01-25 [facility] AlcidesKasia [facility] 03:28:00 [facility] MAGNESIUM 2021-01-[address] [facility] 03:28:00 [facility] PHOSPHORUS 2021-01-25 [facility] Alcides, Kasia [facility] 03:28:00 [facility] PROTHROMBIN TIME/INR 2021-01-25 [facility] McgrathKasia [facility] 03:28:00 [facility] XR CHEST 1 VIEW PORTABLE / 2021-01-25 [facility] Mcgrath Kasia [facility] BEDSIDE 02:31:00 [facility] POCT-GLUCOSE METER 2021-01-[address] [facility] 00:13:[address] [facility] PREPARE LEUKO-REDUCED 2021-01-[address] [facility] PLATELETS 23:55:00 [facility] PREPARE PLASMA 2021-01-[address] [facility] 23:55:[address] [facility] PREPARE PLATELETS 2021-01-[address] [facility] 23:55:00 [facility] PREPARE PLASMA 2021-01-[address] [facility] 23:54:00 [facility] PREPARE RBC 2021-01-[address] [facility] 23:54:00 [facility] PREPARE LEUKO-REDUCED 2021-01-[address] [facility] 23:54:[address] [facility] SODIUM NA-STAT LAB 2021-01-[address] [facility] 21:42:00 [facility] POTASSIUM-STAT LAB 2021-01-[address] [facility] 21:42:00 [facility] GLUCOSE-STAT LAB 2021-01-[address] [facility] 21:42:00 [facility] HGB/HCT (H&H) - STAT LAB 2021-01-[address] [facility] 21:42:00 [facility] BLOOD GAS, ARTERIAL 2021-01-[address] [facility] 21:41:00 [facility] PHOSPHORUS 2021-01-24 Beram, Jihad [facility] 18:16:00 [facility] BASIC METABOLIC PANEL (7) 2021-01-[address] [facility] 18:16:00 [facility] MAGNESIUM 2021-01-24 Beram, Jihad [facility] 18:16:00 [facility] CBC W/PLT COUNT & AUTO 2021-01-[address] [facility] DIFFERENTIAL 12:21:00 [facility] PHOSPHORUS 2021-01-24 Beram, Jihad [facility] 10:25:00 [facility] POTASSIUM 2021-01-24 Beram, Jihad [facility] 10:25:00 [facility] MAGNESIUM 2021-01-24 Beram, Jihad [facility] 10:25:[address] [facility] BLOOD GAS, ARTERIAL 2021-01-24 Beram, Jihad [facility] 10:25:00 [facility] POCT-GLUCOSE METER 2021-01-[address] [facility] 08:56:[address] [facility] APTT 2021-01-24 Ber, Jihad [facility] 03:18:00 [facility] BLOOD GAS, ARTERIAL 2021-01-24 Beram, Jihad [facility] 03:18:[address] [facility] CALCIUM, IONIZED 2021-01-24 [facility], Jihad [facility] 03:18:[address] [facility] LACTIC ACID, ARTERIAL 2021-01-24 Kasia Rubio [facility] 03:18:00 [facility] OXYGEN SATURATION, MEASURED 2021-01-[address] [facility] 03:18:00 [facility] BASIC METABOLIC PANEL (7) 2021-01-24 Richey Kasia Mcgrath [facility] 03:18:00 [facility] MAGNESIUM 2021-01-24 [facility] Mcgrath, Kasia [facility] 03:18:00 [facility] PHOSPHORUS 2021-01-24 Richey Mcgrath, Kasia [facility] 03:18:00 [facility] PROTHROMBIN TIME/INR 2021-01-24 Richeybulmaro Mcgrath Kasia [facility] 03:18:00 [facility] CBC W/PLT COUNT & AUTO 2021-01-[address] [facility] DIFFERENTIAL 03:18:00 [facility] HEPATIC FUNCTION PANEL 2021-01-[address] [facility] 03:18:[address] [facility] XR CHEST 1 VIEW PORTABLE / 2021-01-[address] [facility] BEDSIDE 01:39:00 [facility] CBC W/PLT COUNT & AUTO 2021-01-24 Mikaela, Cami [facility] DIFFERENTIAL 00:31:00 [facility] BLOOD GAS, ARTERIAL 2021-01-24 Edson, Uselyn [facility] 00:31:00 [facility] LACTIC ACID, ARTERIAL 2021-01-24 Edson, Cami [facility] 00:31:00 [facility] PREPARE LEUKO-REDUCED RBC 2021-01-23 Elin Vasquez [facility] 23:54:00 [facility] PREPARE RBC 2021-01-[address] [facility] 23:54:[address] [facility] TRANSFUSE LEUKO-REDUCED RED 2021-01-[address] [facility] BLOOD CELLS 23:42:34 [facility] POCT-GLUCOSE METER 2021-01-[address] [facility] 23:10:[address] [facility] TRANSFUSE PLASMA 2021-01-[address] [facility] 21:55:[address] [facility] BASIC METABOLIC PANEL (7) 2021-01-[address] [facility] 21:26:00 [facility] PROTHROMBIN TIME/INR 2021-01-[address] [facility] 21:26:00 [facility] APTT 2021-01-23 Mikaela, Uselyn [facility] 21:26:00 [facility] FIBRINOGEN 2021-01-23 Edson, Uselyn [facility] 21:26:00 [facility] MAGNESIUM 2021-01-23 Edson, Uselyn [facility] 21:26:00 [facility] PHOSPHORUS 2021-01-23 Edson, Uselyn [facility] 21:26:00 [facility] CALCIUM, IONIZED 2021-01-23 Edson, Uselyn [facility] 21:26:00 [facility] CBC W/PLT COUNT & AUTO 2021-01-23 Edson, Uselyn [facility] DIFFERENTIAL 21:26:00 [facility] BLOOD GAS, ARTERIAL 2021-01-23 Edson, Uselyn [facility] 21:26:00 [facility] TRANSFUSE LEUKO-REDUCED 2021-01-23 Jeanette, Zaira [facility] 20:46:[address] [facility] TRANSFUSE LEUKO-REDUCED RED 2021-01-23 Richey Mcgrath, Kasia [facility] BLOOD CELLS 19:36:37 [facility] POCT-GLUCOSE METER 2021-01-[address] [facility] 18:47:[address] [facility] CBC W/PLT COUNT & AUTO 2021-01-23 Kaiden Mcgrath, Kasia [facility] DIFFERENTIAL 17:47:00 [facility] OXYGEN SATURATION, MEASURED 2021-01-[address] [facility] 17:43:00 [facility] XR CHEST 1 VIEW PORTABLE / 2021-01-[address] [facility] 15:54:00 [facility] BLOOD GAS, ARTERIAL 2021-01-23 Richey Mcgrath, Kasia [facility] 15:50:00 [facility] CBC W/PLT COUNT & AUTO 2021-01-[address] [facility] DIFFERENTIAL 15:48:00 [facility] COMPREHENSIVE METABOLIC 2021-01-23 Richey Lisbet Mcgratha [facility] PANEL 15:48:00 [facility] MAGNESIUM 2021-01-23 Richey Mcgrath, Kasia [facility] 15:48:00 [facility] PHOSPHORUS 2021-01-[address] [facility] 15:48:00 [facility] LACTIC ACID, ARTERIAL 2021-01-23 Richey Mcgrath, Kasia [facility] 15:48:00 [facility] BLOOD GAS, ARTERIAL 2021-01-23 Richey Mcgrath, Kasia [facility] 15:48:00 [facility] PROTHROMBIN TIME/INR 2021-01-23 Richeybulmaro Pickarda, Kasia [facility] 15:48:00 [facility] APTT 2021-01-23 Richeybulmaro Pickarda, Kasia [facility] 15:48:00 [facility] FIBRINOGEN 2021-01-23 Richeybulmaro Pickarda, Kasia [facility] 15:48:00 [facility] SODIUM NA-STAT LAB 2021-01-23 [facility] Mcgrath, Kasia [facility] 15:48:00 [facility] POTASSIUM-STAT LAB 2021-01-23 [facility] Mcgrath, Kasia [facility] 15:48:00 [facility] GLUCOSE-STAT LAB 2021-01-23 [facility] Mcgrath, Kasia [facility] 15:48:00 [facility] HGB/HCT (H&H) - STAT LAB 2021-01-23 [facility] Alcides, Kasia [facility] 15:48:00 [facility] TRANSFUSE PLASMA 2021-01-23 Royalty, Alyce [facility] 14:22:50 [facility] TRANSFUSE LEUKO-REDUCED 2021-01-23 ty, Alyce [facility] PL[facility]LETS 14:17:35 [facility] TRANSFUSE PLASMA 2021-01-23 Royalty, Alyce [facility] 14:16:35 [facility] BLOOD GAS, ARTERIAL 2021-01-23 ty, Alyce [facility] 13:33:39 [facility] CALCIUM, IONIZED 2021-01-23 Royalty, Alyce [facility] 13:33:39 [facility] APTT 2021-01-23 Royalty, Alyce [facility] 13:33:39 [facility] PROTHROMBIN TIME/INR 2021-01-23 Royalty, [facility]ce [facility] 13:33:39 [facility] FIBRINOGEN 2021-01-23 Royalty, Alyce [facility] 13:33:39 [facility] PLATELET COUNT 2021-01-23 Royalty, Alyce [facility] 13:33:39 [facility] SODIUM NA-STAT LAB 2021-01-[address] [facility] 13:33:39 [facility] POTASSIUM-STAT LAB 2021-01-[address] [facility] 13:33:39 [facility] GLUCOSE-STAT LAB 2021-01-[address] [facility] 13:33:39 [facility] HGB/HCT (H&H) - STAT LAB 2021-01-23 [facility] 13:33:39 [facility] TRANSFUSE PLASMA 2021-01-[address] [facility] 13:18:07 [facility] TRANSFUSE LEUKO-REDUCED 2021-01-[address] [facility] 13:14:42 [facility] EXPLORATION,MEDIASTINAL 2021-01-[address] [facility] 12:39:00 [facility] TRANSFUSE LEUKO-REDUCED 2021-01-[address] [facility] 11:04:16 [facility] POCT-GLUCOSE METER 2021-01-[address] [facility] 09:50:[address] [facility] TRANSFUSE PLASMA 2021-01-[address] [facility] 09:36:12 [facility] PHOSPHORUS 2021-01-23 Bertoro, Luz [facility] 09:32:[address] [facility] CBC (HEMOGRAM ONLY) 2021-01-23 Bob, Luz [facility] 09:32:00 [facility] MAGNESIUM 2021-01-23 Beram, Luz [facility] 09:32:[address] [facility] LACTIC ACID, ARTERIAL 2021-01-[address] [facility] 04:04:[address] [facility] XR CHEST 1 VIEW PORTABLE / 2021-01-23 Leonidas Ocampo [facility] 03:53:[address] [facility] BLOOD GAS, ARTERIAL 2021-01-23 Bob, Luz [facility] 03:49:[address] [facility] OXYGEN SATURATION, MEASURED 2021-01-[address] [facility] 03:49:[address] [facility] APTT 2021-01-23 Beram, Jihad [facility] 03:48:00 [facility] CBC W/PLT COUNT & AUTO 2021-01-[address] DIFFERENTIAL 03:48:00 [facility] PROTHROMBIN TIME/INR 2021-01-[address] [facility] 03:48:00 [facility] MAGNESIUM 2021-01-23 Richard, Jes [facility] 03:48:00 [facility] PHOSPHORUS 2021-01-[address] [facility] 03:48:00 [facility] CALCIUM, IONIZED 2021-01-23 Beram, Jihad [facility] 03:48:00 [facility] BASIC METABOLIC PANEL (7) 2021-01-23 Jes Ramos [facility] 03:48:00 [facility] (CELLAVISION MANUAL DIFF) 2021-01-23 Jes Ramos [facility] 03:48:00 [facility] TRANSFUSE LEUKO-REDUCED RED 2021-01-[address] [facility] BLOOD CELLS 01:18:21 [facility] LACTIC ACID, ARTERIAL 2021-01-[address] [facility] 00:14:00 [facility] MAGNESIUM 2021-01-23 Beram, Jihad [facility] 00:14:00 [facility] CALCIUM, IONIZED 2021-01-23 Beram, Jihad [facility] 00:14:00 [facility] BLOOD GAS, ARTERIAL 2021-01-23 Beram, Jihad [facility] 00:14:00 [facility] BASIC METABOLIC PANEL (7) 2021-01-23 Jes Ramos [facility] 00:14:00 [facility] TRANSFUSE LEUKO-REDUCED RED 2021-01-[address] [facility] BLOOD CELLS 21:28:48 [facility] BLOOD GAS, ARTERIAL 2021-01-22 Beram, Jihad [facility] 20:16:00 [facility] CBC (HEMOGRAM ONLY) 2021-01-[address] [facility] 20:15:00 [facility] LACTIC ACID, ARTERIAL 2021-01-[address] [facility] 20:14:00 [facility] OXYGEN SATURATION, MEASURED 2021-01-[address] [facility] 20:14:00 [facility] SODIUM NA-STAT LAB 2021-01-[address] [facility] 20:14:00 [facility] POTASSIUM-STAT LAB 2021-01-[address] [facility] 20:14:00 [facility] GLUCOSE-STAT LAB 2021-01-[address] [facility] 20:14:00 [facility] HGB/HCT (H&H) - STAT LAB 2021-01-[address] [facility] 20:14:00 [facility] PHOSPHORUS 2021-01-[address] [facility] 20:14:[address] [facility] PROTHROMBIN TIME/INR 2021-01-[address] [facility] 20:14:[address] [facility] APTT 2021-01-[address] [facility] 20:14:[address] [facility] FIBRINOGEN 2021-01-[address] [facility] 20:14:[address] [facility] TRANSFUSE LEUKO-REDUCED RED 2021-01-22 Elin Vasquez [facility] BLOOD CELLS 19:33:[address] [facility] [address] CHEST WITH IV CONTRAST 2021-01-22 Elin Vasquez [facility] 19:16:[address] [facility] [address] ABDOMEN/PELVIS WITH IV 2021-01-22 Elin Vasquez [facility] CONTRAST 19:16:00 [facility] BLOOD GAS, ARTERIAL 2021-01-22 Elin Vasquez [facility] 18:20:00 [facility] XR CHEST 1 VIEW PORTABLE / 2021-01-22 Elin Vasquez [facility] 17:57:00 [facility] POCT-GLUCOSE METER 2021-01-[address] [facility] 16:31:[address] [facility] PREPARE PLASMA 2021-01-22 Elin Vasquez [facility] 14:56:00 [facility] BLOOD GAS, ARTERIAL 2021-01-22 Elin Vasquez [facility] 14:41:00 [facility] POCT-GLUCOSE METER 2021-01-[address] [facility] 14:21:[address] [facility] OXYGEN SATURATION, MEASURED 2021-01-[address] [facility] 13:58:00 [facility] POCT-GLUCOSE METER 2021-01-[address] [facility] 13:57:[address] [facility] SODIUM NA-STAT LAB 2021-01-[address] [facility] 13:56:00 [facility] POTASSIUM-STAT LAB 2021-01-[address] [facility] 13:56:00 [facility] GLUCOSE-STAT LAB 2021-01-[address] [facility] 13:56:00 [facility] HGB/HCT (H&H) - STAT LAB 2021-01-[address] [facility] 13:56:00 [facility] CALCIUM, IONIZED 2021-01-[address] [facility] 13:56:00 [facility] CBC W/PLT COUNT & AUTO 2021-01-22 [facility]quez [facility] 13:56:00 [facility] BLOOD GAS, ARTERIAL 2021-01-[address] [facility] 13:56:00 [facility] (CELLAVISION MANUAL DIFF) 2021-01-22 [facility]quez [facility] 13:56:00 [facility] LACTIC ACID, ARTERIAL 2021-01-22 Elin Vasquez [facility] 13:55:00 [facility] BASIC METABOLIC PANEL (7) 2021-01-22 El[facility]quez [facility] 13:55:00 [facility] MAGNESIUM 2021-01-[address] [facility] 13:55:00 [facility] PHOSPHORUS 2021-01-[address] [facility] 13:55:00 [facility] PROTHROMBIN TIME/INR 2021-01-[address] [facility] 13:54:00 [facility] APTT 2021-01-[address] [facility] 13:54:00 [facility] FIBRINOGEN 2021-01-[address] [facility] 13:54:00 [facility] POCT-GLUCOSE METER 2021-01-[address] [facility] 13:23:[address] [facility] BLOOD GAS, ARTERIAL 2021-01-[address] [facility] 12:04:00 [facility] POCT-GLUCOSE METER 2021-01-22 [facility], Ca Irizarry [facility] 11:45:[address] [facility] TRANSFUSE LEUKO-REDUCED RED 2021-01-[address] [facility] BLOOD CELLS 11:30:51 [facility] POCT-GLUCOSE METER 2021-01-22 [facility], Ca Irizarry [facility] 11:19:[address] [facility] POCT-GLUCOSE METER 2021-01-22 [facility], Ca Irizarry [facility] 11:06:[address] [facility] POCT-GLUCOSE METER 2021-01-22 [facility], Ca Irizarry [facility] 10:55:[address] [facility] POCT-GLUCOSE METER 2021-01-22 [facility], Ca Irizarry [facility] 10:48:[address] [facility] 2D ECHO W/ DOPPLER 2021-01-22 Jes Ramos [facility] (CW/PW/COLOR) 10:39:[address] [facility] LACTIC ACID, ARTERIAL 2021-01-22 Jaswinder Vasquezelle [facility] 10:36:00 [facility] OXYGEN SATURATION, MEASURED 2021-01-22 Elin Vasquez [facility] 10:36:00 [facility] SODIUM NA-STAT LAB 2021-01-[address] [facility] 10:36:00 [facility] POTASSIUM-STAT LAB 2021-01-22 Elin Vasquez [facility] 10:36:00 [facility] GLUCOSE-STAT LAB 2021-01-[address] [facility] 10:36:00 [facility] HGB/HCT (H&H) - STAT LAB 2021-01-[address] [facility] 10:36:00 [facility] TRANSFUSE LEUKO-REDUCED RED 2021-01-22 Jes Ramos [facility] BLO[facility] CELLS 09:58:[address] [facility] CONTINUOUS VENOVENOUS 2021-01-22 Bob, Luz [facility] HEMODIALYSIS 09:18:[address] [facility] APTT 2021-01-[address] [facility] 09:13:[address] [facility] XR CHEST 1 VIEW PORTABLE / 2021-01-[address] [facility] 08:57:00 [facility] LACTIC ACID, ARTERIAL 2021-01-[address] [facility] 08:09:00 [facility] OXYGEN SATURATION, MEASURED 2021-01-[address] [facility] 08:09:00 [facility] SODIUM NA-STAT LAB 2021-01-22 Vasquez, Elin [facility] 08:09:00 [facility] POTASSIUM-STAT LAB 2021-01-22 Pedro, Elin [facility] 08:09:00 [facility] GLUCOSE-STAT LAB 2021-01-22 Vasquez, Elin [facility] 08:09:00 [facility] HGB/HCT (H&H) - STAT LAB 2021-01-[address] [facility] 08:09:00 [facility] BLOOD GAS, ARTERIAL 2021-01-[address] [facility] 08:09:00 [facility] APTT 2021-01-[address] [facility] 07:42:[address] [facility] XR CHEST 1 VIEW PORTABLE / 2021-01-[address] [facility] BED[facility]IDE 07:08:[address] [facility] HEMOGLOBIN AND HEMATOCRIT 2021-01-22 Jes Ramos [facility] 06:37:[address] [facility] BASIC METABOLIC PANEL (7) 2021-01-22 Jes Ramos [facility] 06:35:[address] [facility] CALCIUM, IONIZED 2021-01-[address] [facility] 06:35:[address] [facility] PROTHROMBIN TIME/INR 2021-01-[address] [facility] 06:35:00 [facility] APTT 2021-01-[address] [facility] 06:35:[address] [facility] FIBRINOGEN 2021-01-[address] [facility] 06:35:[address] [facility] B-TYPE NATRIURETIC FACTOR 2021-01-22 Jes Ramos [facility] (BNP) 06:35:[address] [facility] HEPATIC FUNCTION PANEL 2021-01-[address] [facility] 06:35:00 [facility] MAGNESIUM 2021-01-22 Ramos, Jes [facility] 06:35:00 [facility] PHOSPHORUS 2021-01-22 Ramos, Jes [facility] 06:35:00 [facility] LACTIC ACID, ARTERIAL 2021-01-22 Ramos, Jes [facility] 06[facility]31:00 [facility] BLOOD GAS, ARTERIAL [...] DIFFERENTIAL 02:28:00 [facility] PROTHROMBIN TIME/INR 2021-01-22 Ramos, Jes [facility] 02:28:00 [facility] MAGNESIUM 2021-01-22 Ramos, Jes [facility] 02:28:00 [facility] PHOSPHORUS 2021-01-22 Ramos, Jes [facility] 02:28:00 [facility] CALCIUM, IONIZED 2021-01-22 Beram, Jihad [facility] 02:28:00 [facility] LACTIC ACID, ARTERIAL 2021-01-22 Ramos, Jes [facility] 02:28:00 [facility] BASIC METABOLIC PANEL (7) 2021-01-22 Ramos, Jes [facility] 02:28:00 [facility] OXYGEN SATURATION, MEASURED 2021-01-22 Ramos, Jes [facility] 02:28:00 [facility] XR CHEST 1 VIEW PORTABLE / 2021-01-22 Leonidas Ocampo [facility] 01:25:00 [facility] APTT 2021-01-22 Beram, Jihad [facility] 01:11:00 [facility] PREPARE LEUKO-REDUCED RBC 2021-01-21 Ramos, Jes [facility] 23:54:00 [facility] HEMOGLOBIN AND HEMATOCRIT 2021-01-21 Richard, Jes [facility] 22:41:00 [facility] APTT 2021-01-[address] [facility] 22:41:00 [facility] ECG 12-LEAD 2021-01-21 Unknown, Hl7 Doctor [facility] 22:11:18 [facility] POCT-GLUCOSE METER 2021-01-21 An Ca T[address] [facility] 21:40:00 [facility] BASIC METABOLIC PANEL (7) 2021-01-21 Omi, Omar [facility] 21:32:00 [facility] PHOSPHORUS 2021-01-21 Omi, Omar [facility] 21:32:00 [facility] MAGNESIUM 2021-01-21 Omi, Omar [facility] 21:32:[address] [facility] BLOOD GAS, ARTERIAL 2021-01-[address] [facility] 18:59:00 [facility] POCT-GLUCOSE METER 2021-01-21 An, Ca T. [facility] 18:23:00 [facility] PT/APTT 2021-01-[address] [facility] 17:17:00 [facility] POCT-GLUCOSE METER 2021-01-21 An, Ca T. [facility] 12:07:[address] [facility] BLOOD GAS, ARTERIAL 2021-01-[address] [facility] 11:50:00 [facility] PT/APTT 2021-01-21 Alexa, Alex [facility] 11:49:00 [facility] MAGNESIUM 2021-01-[address] [facility] 09:06:00 [facility] PHOSPHORUS 2021-01-[address] [facility] 09:06:00 [facility] POTASSIUM 2021-01-[address] [facility] 09:06:00 [facility] POCT-GLUCOSE METER 2021-01-21 [place], Ca [facility]. [facility] 08:39:00 [facility] PH, ARTERIAL 2021-01-[address] [facility] 08:18:00 [facility] XR CHEST 1 VIEW PORTABLE / 2021-01-21 Leonidas Ocampo [facility] 03:14:00 [facility] [place] BLOOD GAS, ARTERIAL 2021-01-21 Zhaotoro, Jiharemy [facility] 03:10:[address] [facility] CALCIUM, IONIZED 2021-01-[address] [facility] 03:10:00 [facility] CBC W/PLT COUNT & AUTO 2021-01-[address] [facility] DIFFERENTIAL 03:09:[address] [facility] MAGNESIUM 2021-01-[address] [facility] 03:09:[address] [facility] APTT 2021-01-21 Bob, Jiharemy [facility] 03:09:[address] [facility] HEPATIC FUNCTION PANEL 2021-01-[address] [facility] 03:09:[address] [facility] PROTHROMBIN TIME/INR 2021-01-[address] [facility] 03:09:[address] [facility] BASIC METABOLIC PANEL (7) 2021-01-[address] [facility] 03:09:[address] [facility] PREPARE LEUKO-REDUCED RBC 2021-01-[address] [facility] 23:54:00 [facility] POCT-GLUCOSE METER 2021-01-20 An Ca T. [facility] 23:46:[address] [facility] POTASSIUM 2021-01-[address] [facility] 21:38:[address] [facility] MAGNESIUM 2021-01-[address] [facility] 21:38:[address] [facility] PH, ARTERIAL 2021-01-20 Jarod, Jingyin [facility] 21:38:00 [facility] PHOSPHORUS 2021-01-20 Jarod, Jingyin [facility] 21:38:[address] [facility] POTASSIUM 2021-01-20 Jarod, Jingyin [facility] 18:19:00 [facility] POCT-GLUCOSE METER 2021-01-20 Kendrickkwayelias Ca T. [facility] 18:08:[address] [facility] IR TUNNELED CATHETER 2021-01-20 Neptali Vargas [facility] INSERTION 17:08:00 [facility] TRANSFUSE LEUKO-REDUCED RED 2021-01-[address] [facility] BLOOD CELLS 13:47:22 [facility] POTASSIUM 2021-01-20 Jarod, Jingyin [facility] 13:16:00 [facility] POCT-GLUCOSE METER 2021-01-20 KendrickkCa smith T[address] [facility] 11:45:00 [facility] APTT 2021-01-20 Beram, Jihad [facility] 09:08:00 [facility] MAGNESIUM 2021-01-20 Jarod, Jingyin [facility] 09:07:00 [facility] PH, ARTERIAL 2021-01-20 Jarod, Jingyin [facility] 09:07:00 [facility] PHOSPHORUS 2021-01-20 Jarod, Jingyin [facility] 09:07:00 [facility] BLOOD GAS, ARTERIAL 2021-01-20 Bertoro, Jihad [facility] 03:49:00 [facility] CBC W/PLT COUNT & AUTO 2021-01-[address] [facility] DIFFERENTIAL 03:48:00 [facility] MAGNESIUM 2021-01-[address] [facility] 03:48:00 [facility] CALCIUM, IONIZED 2021-01-[address] [facility] 03:48:00 [facility] PROTHROMBIN TIME/INR 2021-01-[address] [facility] 03:48:00 [facility] BASIC METABOLIC PANEL (7) 2021-01-20 Jarod, Jinbernyin [facility] 03:48:00 [facility] HEPATIC FUNCTION PANEL 2021-01-[address] [facility] 03:48:00 [facility] APTT 2021-01-20 Bertoro, Jihad [facility] 02:04:00 [facility] XR CHEST 1 VIEW PORTABLE / 2021-01-20 Leonidas Ocampo [facility] 01:18:00 [facility] POTASSIUM 2021-01-[address] [facility] 00:38:00 [facility] POCT-GLUCOSE METER 2021-01-[address] [facility] 00:20:00 [facility] HEMOGLOBIN AND HEMATOCRIT 2021-01-20 Ramos, Jes [facility] 00:19:00 [facility] TRANSFUSE LEUKO-REDUCED RED 2021-01-[address] [facility] BLOOD CELLS 22:29:21 [facility] PH, ARTERIAL 2021-01-19 Jarod, Sadi [facility] 20:23:00 [facility] POTASSIUM 2021-01-19 Jarod, Jingyin [facility] 20:19:00 [facility] MAGNESIUM 2021-01-[address] [facility] 20:19:00 [facility] PHOSPHORUS 2021-01-19 Jarod, Jingyin [facility] 20:19:00 [facility] APTT 2021-01-[address] [facility] 20:19:00 [facility] POTASSIUM 2021-01-19 Jarod, Jingyin [facility] 17:12:00 [facility] Center VANCOMYCIN LEVEL, TROUGH 2021-01-[address] [facility] 17:12:00 [facility] CBC W/PLT COUNT & AUTO 2021-01-[address] [facility] DIFFERENTIAL 17:12:00 [facility] POCT-GLUCOSE METER 2021-01-[address] [facility] 11:39:00 [facility] POTASSIUM 2021-01-[address] [facility] 11:24:00 [facility] PT/APTT 2021-01-[address] [facility] 11:24:00 [facility] PHOSPHORUS 2021-01-19 Jarod, Jingyin [facility] 08:49:00 [facility] BLOOD GAS, ARTERIAL 2021-01-[address] [facility] 08:49:00 [facility] POCT-GLUCOSE METER 2021-01-[address] [facility] 06:23:00 [facility] HEMOGLOBIN AND HEMATOCRIT 2021-01-[address] [facility] 05:41:00 [facility] CBC W/PLT COUNT & AUTO 2021-01-[address] [facility] DIFFERENTIAL 05:41:00 [facility] Center BLOOD GAS, ARTERIAL 2021-01-19 Beram, Jihad [facility] 03:47:00 [facility] CBC W/PLT COUNT & AUTO 2021-01-[address] [facility] DIFFERENTIAL 03:46:[address] [facility] MAGNESIUM 2021-01-[address] [facility] 03:46:00 [facility] APTT 2021-01-[address] [facility] 03:46:[address] [facility] COMPREHENSIVE METABOLIC 2021-01-[address] [facility] PANEL 03:46:[address] [facility] CALCIUM, IONIZED 2021-01-[address] [facility] 03:46:00 [facility] HEPATIC FUNCTION PANEL 2021-01-[address] [facility] [facility] 03:46:00 [facility] PROTHROMBIN TIME/INR 2021-01-[address] [facility] 03:46:[address] [facility] (CELLAVISION MANUAL DIFF) 2021-01-[address] [facility] 03:46:[address] [facility] XR CHEST 1 VIEW PORTABLE / 2021-01-19 Leonidas Ocampo [facility] 01:50:[address] [facility] XR ABDOMEN / KUB 1 VIEW 2021-01-[address] [facility] 01:50:00 [facility] POCT-GLUCOSE METER 2021-01-[address] [facility] 01:38:[address] [facility] POCT-GLUCOSE METER 2021-01-[address] [facility] 00:22:[address] [facility] PREPARE PLASMA 2021-01-[address] [facility] 23:55:[address] [facility] PREPARE LEUKO-REDUCED RBC 2021-01-18 Elin Vasquez [facility] 23:55:00 [facility] POTASSIUM 2021-01-[address] [facility] 20:05:[address] [facility] MAGNESIUM 2021-01-[address] [facility] 20:05:[address] [facility] PH, ARTERIAL 2021-01-[address] [facility] 20:05:[address] [facility] PHOSPHORUS 2021-01-[address] [facility] 20:05:00 [facility] HEMOGLOBIN AND HEMATOCRIT 2021-01-18 Jes Ramos [facility] 20:05:00 [facility] POCT-GLUCOSE METER 2021-01-[address] [facility] 17:48:00 [facility] POTASSIUM 2021-01-18 Jarod, Mehdigytad [facility] 15:40:00 [facility] POTASSIUM 2021-01-[address] [facility] 12:28:00 [facility] Center POCT-GLUCOSE METER 2021-01-[address] [facility] 12:28:00 [facility] XR CHEST 1 VIEW PORTABLE / 2021-01-18 Estefany Mcwilliams [facility]ams [facility] 08:24:00 [facility] POTASSIUM 2021-01-[address] [facility] 08:09:00 [facility] MAGNESIUM 2021-01-[address] [facility] 08:09:00 [facility] PHOSPHORUS 2021-01-[address] [facility] 08:09:00 [facility] Center HEMOGLOBIN AND HEMATOCRIT 2021-01-18 Jes Ramos [facility] 04:31:00 [facility] BLOOD GAS, ARTERIAL 2021-01-[address] [facility] 03:20:00 [facility] Center SARS-COV2/RT-PCR ([facility] & REF 2021-01-[address] [facility] LABS) 03:16:00 [facility] CBC W/PLT COUNT & AUTO 2021-01-[address] [facility] DIFFERENTIAL 03:13:00 [facility] MAGNESIUM 2021-01-[address] [facility] 03:13:00 [facility] Center APTT 2021-01-[address] [facility] 03:13:00 [facility] COMPREHENSIVE METABOLIC 2021-01-[address] [facility] PANEL 03:13:00 [facility] Center PROTHROMBIN TIME/INR 2021-01-[address] [facility] 03:13:00 [facility] LACTIC ACID, ARTERIAL 2021-01-[address] [facility] 03:13:00 [facility] POCT-GLUCOSE METER 2021-01-18 Ca Nolan [facility] 01:05:[address] [facility] XR CHEST 1 VIEW PORTABLE / 2021-01-18 Leonidas Ocampo [facility] 00:21:[address] [facility] PREPARE LEUKO-REDUCED RBC 2021-01-17 Jes Ramos [facility] 23:55:[address] [facility] HEMOGLOBIN AND HEMATOCRIT 2021-01-17 Jes Ramos [facility] 19:55:[address] [facility] POTASSIUM 2021-01-17 Jarod, Jingyin [facility] 19:49:00 [facility] MAGNESIUM 2021-01-17 Jarod, Jingyin [facility] 19:49:[address] [facility] PH, ARTERIAL 2021-01-17 Jarod, Jingyin [facility] 19:49:[address] [facility] PHOSPHORUS 2021-01-17 Jarod, Jingyin [facility] 19:49:[address] [facility] TRANSFUSE LEUKO-REDUCED RED 2021-01-[address] [facility] BLOOD CELLS 19:14:33 [facility] POCT-GLUCOSE METER 2021-01-17 [facility]:[address] [facility] PROTHROMBIN TIME/INR 2021-01-[address] [facility] 14:41:00 [facility] APTT 2021-01-[address] [facility] 14:41:00 [facility] FIBRINOGEN 2021-01-[address] [facility] 14:41:00 [facility] PLATELET COUNT 2021-01-[address] [facility] 14:41:00 [facility] HEMOGLOBIN AND HEMATOCRIT 2021-01-[address] [facility] 14:06:[address] [facility] POCT-GLUCOSE METER 2021-01-[address] [facility] 12:31:[address] [facility] XR ABDOMEN / KUB 1 VIEW 2021-01-[address] [facility] 12:11:00 [facility] POTASSIUM 2021-01-17 Jarod, Jingyin [facility] 11:43:[address] [facility] TRANSFUSE PLASMA 2021-01-[address] [facility] 11:34:18 [facility] Center POTASSIUM 2021-01-17 Jarod, Mehdibernyin [facility] 07:59:00 [facility] MAGNESIUM 2021-01-17 Jarod, Jingyin [facility] 07:59:00 [facility] PH, ARTERIAL 2021-01-17 Jarod, Jingyin [facility] 07:59:00 [facility] PHOSPHORUS 2021-01-17 Jarod, Jingyin [facility] 07:59:00 [facility] HEMOGLOBIN AND HEMATOCRIT 2021-01-[address] [facility] 07:59:00 [facility] LACTIC ACID, ARTERIAL 2021-01-[address] [facility] 04:08:00 [facility] CBC W/PLT COUNT & AUTO 2021-01-[address] [facility] DIFFERENTIAL 04:08:[address] [facility] MAGNESIUM 2021-01-[address] [facility] 04:08:[address] [facility] APTT 2021-01-[address] [facility] 04:08:00 [facility] COMPREHENSIVE METABOLIC 2021-01-[address] [facility] PANEL 04:08:[address] [facility] HEPATIC FUNCTION PANEL 2021-01-[address] [facility] 04:08:[address] [facility] BLOOD GAS, ARTERIAL 2021-01-[address] [facility] 04:08:00 [facility] PROTHROMBIN TIME/INR 2021-01-[address] [facility] 04:08:00 [facility] TYPE AND SCREEN, AUTOMATED 2021-01-[address] [facility] 04:08:[address] [facility] (CELLAVISION MANUAL DIFF) 2021-01-[address] [facility] 04:08:[address] [facility] TRANSFUSE LEUKO-REDUCED RED 2021-01-[address] [facility] BLOOD CELLS 03:55:[address] [facility] POCT-GLUCOSE METER 2021-01-[address] [facility] 03:32:[address] [facility] XR CHEST 1 VIEW PORTABLE / 2021-01-17 Leon[facility]campo [facility]:[address] [facility] POTASSIUM 2021-01-16 Jarod, Jingyin [facility] 23:11:00 [facility] PROTHROMBIN TIME/INR 2021-01-16 Ramos, Jes [facility] 23:11:00 [facility] APTT 2021-01-16 Ramos, Jes [facility] 23:11:00 [facility] FIBRINOGEN 2021-01-16 Ramos, Jes [facility] 23:11:00 [facility] POCT-GLUCOSE METER 2021-01-16 An Ca DominguezJennifer [facility] 22:09:00 [facility] TRANSFUSE LEUKO-REDUCED RED 2021-01-[address] [facility] BLOOD CELLS 20:31:58 [facility] LACTIC ACID, ARTERIAL 2021-01-[address] [facility] 20:29:00 [facility] POTASSIUM 2021-01-16 Jarod, Jingyin [facility] 20:29:00 [facility] MAGNESIUM 2021-01-16 Jarod, Jingyin [facility] 20:29:00 [facility] PH, ARTERIAL 2021-01-16 Jarod, Jingyin [facility] 20:29:00 [facility] PHOSPHORUS 2021-01-16 Jarod, Jingyin [facility] 20:29:00 [facility] Center PT/APTT 2021-01-[address] [facility] 20:29:00 [facility] HEMOGLOBIN AND HEMATOCRIT 2021-01-[address] [facility] 20:29:00 [facility] Center BLOOD CULTURE 2021-01-[address] [facility] 18:23:00 [facility] Center BLOOD CULTURE 2021-01-[address] [facility] 18:11:00 [facility] Center TRANSFUSE LEUKO-REDUCED RED 2021-01-[address] [facility] BLOOD CELLS 18:01:26 [facility] BLOOD GAS, ARTERIAL 2021-01-[address] [facility] 17:03:00 [facility] LACTIC ACID, ARTERIAL 2021-01-[address] [facility] 17:02:00 [facility] SPUTUM CULTURE + GRAM STAIN 2021-01-[address] [facility] 17:02:00 [facility] [place] INSERT 2021-01-[address] [facility] CATH,ART,PERCUT,SHORTTERM 16:45:00 [facility] XR CHEST 1 VIEW PORTABLE / 2021-01-[address] [facility] BED[facility] 16:18:[address] [facility] PREPARE PLASMA 2021-01-16 Kenny, Ara Magdaleno [facility] 16:15:[address] [facility] XR CHEST 1 VIEW PORTABLE / 2021-01-16 Demetrius Burgess [facility] 15:43:00 [facility] BLOOD GAS, ARTERIAL 2021-01-16 Kenny, Ara Magdaleno [facility] 15:41:[address] [facility] BLOOD GAS, ARTERIAL 2021-01-16 Kenny, Ara Magdaleno [facility] 15:17:[address] [facility] 2D ECHO W/ DOPPLER 2021-01-16 Jama Sheth [facility] (CW/PW/COLOR) 15:12:[address] [facility] CBC W/PLT COUNT & AUTO 2021-01-[address] [facility] DIFFERENTIAL 15:08:[address] [facility] COMPREHENSIVE METABOLIC 2021-01-[address] [facility] PANEL 15:08:[address] [facility] MAGNESIUM 2021-01-[address] [facility] 15:08:[address] [facility] PHOSPHORUS 2021-01-[address] [facility] 15:08:[address] [facility] CALCIUM, IONIZED 2021-01-16 Kenny, Ara Magdaleno [facility] 15:08:00 [facility] LACTIC ACID, ARTERIAL 2021-01-[address] [facility] 15:08:00 [facility] PT/APTT 2021-01-16 Kenny, Ara Magdaleno [facility] 15:08:00 [facility] TYPE AND SCREEN, AUTOMATED 2021-01-16 Kenny, Ara Magdaleno [facility] 15:08:[address] [facility] (CELLAVISION MANUAL DIFF) 2021-01-16 Kenny, Ara Magdaleno [facility] 15:08:00 [facility] POCT-BLOOD GASES, ARTERIAL 2021-01-16 Tyrel, [facility] 14:32:00 [facility] POCT-SODIUM 2021-01-16 Tyrel, Zakia [facility] 14:32:00 [facility] POCT-POTASSIUM 2021-01-16 Tyrel, Zakia [facility] 14:32:00 [facility] POCT-HEMOGLOBIN 2021-01-16 Tyrel, Zakia [facility] 14:32:00 [facility] POCT-HEMATOCRIT 2021-01-16 Tyrel, Zakia [facility] 14:32:00 [facility] POCT-GLUCOSE 2021-01-16 Tyrel, Zakia [facility] 14:32:00 [facility] POCT-GLUCOSE METER 2021-01-16 Tyrel, Zakia [facility] 14:21:00 [facility] POCT-BLOOD GASES, VENOUS 2021-01-16 Tyrel, Zakia [facility] 14:14:00 [facility] POCT-SODIUM 2021-01-16 Tyrel, Zakia [facility] 14:14:00 [facility] POCT-POTASSIUM 2021-01-16 Tyrel, Zakia [facility] 14:14:00 [facility] POCT-HEMOGLOBIN 2021-01-16 Tyrel, Zakia [facility] 14:14:00 [facility] Center POCT-HEMATOCRIT 2021-01-16 Tyrel, Zakia [facility] 14:14:00 [facility] POCT-GLUCOSE 2021-01-16 Tyrel, Zakia [facility] 14:14:00 [facility] ECG 12-LEAD 2021-01-16 Unknown, Hl7 Doctor [facility] 09:23:17 Medical Center ECG 12-LEAD 2021-01-16 Unknown, Hl7 Doctor [facility] 09:22:46 [facility] APTT 2021-01-[address] [facility] 07:04:00 [facility] APTT 2021-01-[address] [facility] 04:47:00 [facility] PROTHROMBIN TIME/INR 2021-01-[address] [facility] 04:47:00 [facility] CBC W/PLT COUNT & AUTO 2021-01-16 Taye Villatoro [facility] DIFFERENTIAL 03:24:00 [facility] MAGNESIUM 2021-01-[address] [facility] 03:24:00 [facility] BASIC METABOLIC PANEL (7) 2021-01-[address] [facility] 03:24:00 [facility] PHOSPHORUS 2021-01-[address] [facility] 03:24:00 [facility] (CELLAVISION MANUAL DIFF) 2021-01-[address] [facility] 03:24:00 [facility] XR CHEST 1 VIEW PORTABLE / 2021-01-16 Leonidas [facility]campo [facility] 00:28:00 [facility] POCT-GLUCOSE METER 2021-01-[address] [facility] 00:04:00 [facility] LIPID PANEL 2021-01-15 Titi, Zotois Jeffrey [facility] 22:24:00 [facility] APTT 2021-01-[address] [facility] 22:24:[address] [facility] POCT-GLUCOSE METER 2021-01-[address] [facility] 12:14:00 [facility] XR CHEST 1 VIEW PORTABLE / 2021-01-15 Leonidas [facility]campo [facility] 09:00:00 [facility] APTT 2021-01-[address] [facility] 08:48:00 [facility] POCT-GLUCOSE METER 2021-01-[address] [facility] 08:12:00 [facility] CBC W/PLT COUNT & AUTO 2021-01-[address] [facility] DIFFERENTIAL 03:16:[address] [facility] COMPREHENSIVE METABOLIC 2021-01-15 T[facility]o [facility] PANEL 03:16:00 [facility] MAGNESIUM 2021-01-[address] [facility] 03:16:00 [facility] PROTHROMBIN TIME/INR 2021-01-[address] [facility] 03:16:00 [facility] (CELLAVISION MANUAL DIFF) 2021-01-[address] [facility] 03:16:00 [facility] POCT-GLUCOSE METER 2021-01-[address] [facility] 21:14:00 [facility] PROTHROMBIN TIME/INR 2021-01-[address] [facility] 13:01:[address] [facility] HEMODIALYSIS INPATIENT 2021-01-14 [facility]OMA Mullers 12:00:15 [facility] ECG 12-LEAD 2021-01-14 Unknown, Hl7 Doctor [facility] 11:17:[address] [facility] HEPATITIS B SURFACE ANTIGEN 2021-01-14 Néstor Hesterleticia [facility] 10:41:00 [facility] POCT-GLUCOSE METER 2021-01-[address] [facility] 07:20:00 [facility] POCT-GLUCOSE METER 2021-01-[address] [facility] 03:35:00 [facility] CBC W/PLT COUNT & AUTO 2021-01-14 T[facility]o [facility] 03:29:[address] [facility] COMPREHENSIVE METABOLIC 2021-01-14 T[facility]o [facility] PANEL 03:29:[address] [facility] MAGNESIUM 2021-01-14 [facility] 03:29:[address] [facility] (CELLAVISION MANUAL DIFF) 2021-01-[address] [facility] 03:29:[address] [facility] XR CHEST 1 VIEW PORTABLE / 2021-01-14 Benedicto Witt [facility] 01:35:00 [facility] XR CHEST 1 VIEW PORTABLE / 2021-01-13 Chapo Kennedy [facility] 19:12:00 [facility] INSERT NON-TUNNEL CV CATH 2021-01-[address] [facility] 18:52:29 [facility] POCT-GLUCOSE METER 2021-01-[address] [facility] 17:25:00 [facility] BASIC METABOLIC PANEL (7) 2021-01-[address] [facility] 15:28:00 [facility] MAGNESIUM 2021-01-[address] [facility] 15:28:00 [facility] BLOOD GAS, ARTERIAL 2021-01-[address] [facility] 15:28:00 [facility] POTASSIUM 2021-01-[address] [facility] 12:29:[address] [facility] BLOOD GAS, ARTERIAL 2021-01-[address] [facility] 11:59:[address] [facility] POCT-GLUCOSE METER 2021-01-[address] [facility] 11:47:00 [facility] BLOOD GAS, ARTERIAL 2021-01-[address] [facility] 09:15:00 [facility] SODIUM NA-STAT LAB 2021-01-[address] [facility] 09:15:00 [facility] POTASSIUM-STAT LAB 2021-01-[address] [facility] 09:15:00 [facility] GLUCOSE-STAT LAB 2021-01-[address] [facility] 09:15:00 [facility] HGB/HCT (H&H) - STAT LAB 2021-01-[address] [facility] 09:15:00 [facility]ASSIUM 2021-01-13 [facility] 09:14:[address] [facility] MAGNESIUM 2021-01-13 [facility], [place] [facility] 09:14:[address] [facility] PHOSPHORUS 2021-01-13 [facility], [place] [facility] 09:14:[address] [facility] (CELLAVISION MANUAL DIFF) 2021-01-13 [facility] [facility] CBC W/PLT COUNT & AUTO 2021-01-[address] [facility] DIFFERENTIAL 03:51:[address] [facility] COMPREHENSIVE METABOLIC 2021-01-13 Taye Villatoro [facility] PANEL 03:51:[address] [facility] MAGNESIUM 2021-01-[address] [facility] 03:51:00 [facility] [facility] PHOSPHORUS 2021-01-13 McwilliamsIke-Matthew Mcwilliams [facility] 03:51:00 [facility] XR CHEST 1 VIEW PORTABLE / 2021-01-13 [facility] 00:14:00 [facility] PREPARE PLASMA 2021-01-[address] [facility] 23:56:00 [facility] PREPARE RBC 2021-01-[address] [facility] 23:55:00 [facility] PREPARE PLATELETS 2021-01-[address] [facility] 23:55:00 [facility] PH, ARTERIAL 2021-01-12 Worah, Galen [facility] 21:20:[address] [facility] POTASSIUM 2021-01-12 Vilma, Galen [facility] 21:20:00 [facility] MAGNESIUM 2021-01-12 Worah, Galen [facility] 21:20:00 [facility] PHOSPHORUS 2021-01-12 Worah, Galen [facility] 21:20:00 [facility] BASIC METABOLIC PANEL (7) 2021-01-12 Vilma, Galen [facility] 14:27:00 [facility] Center PHOSPHORUS 2021-01-12 Vilma, Galen [facility] 14:27:00 [facility] Center MAGNESIUM 2021-01-12 Worzo, Galen [facility] 14:27:00 [facility] SPUTUM CULTURE + GRAM STAIN 2021-01-[address] [facility] 12:19:00 [facility] BRONCHIAL CULTURE + GRAM 2021-01-12 Jaswinder Vasquezelle [facility] STAIN 12:19:00 [facility] MAGNESIUM 2021-01-12 Vilma, Galen [facility] 09:17:00 Medical Center PHOSPHORUS 2021-01-12 [facility], Galen [facility] 09:17:00 Medical Center BASIC METABOLIC PANEL (7) 2021-01-12 Vilma, Galen [facility] 09:17:00 [facility] POCT-GLUCOSE METER 2021-01-[address] [facility] 06:29:00 [facility] POCT-GLUCOSE METER 2021-01-[address] [facility] 03:26:00 [facility] CALCIUM, IONIZED 2021-01-12 Jamie, Nach[facility] Wiseman [facility] 03:[facility]00 [facility] LACTIC ACID, ARTERIAL 2021-01-12 Jamie, Nduka Bowen [facility] 03:15:00 [facility] OXYGEN SATURATION, MEASURED 2021-01-12 Jamie Nddorian Wiseman [facility] 03:15:[address] [facility] (CELLAVISION MANUAL DIFF) 2021-01-[address] [facility] 03:07:00 [facility] Center PHOSPHORUS 2021-01-12 Vilma, Galen [facility] 03:07:00 [facility] MAGNESIUM 2021-01-12 Worzo, Galen [facility] 03:07:00 Medical Center CBC W/PLT COUNT & AUTO 2021-01-[address] [facility] DIFFERENTIAL 03:07:[address] [facility] COMPREHENSIVE METABOLIC 2021-01-12 a[facility]ye [facility]o [facility] PANEL 03:07:00 [facility] BLOOD GAS, ARTERIAL 2021-01-[address] [facility] 03:07:00 [facility] XR CHEST 1 VIEW PORTABLE / 2021-01-12 [facility] 00:18:00 [facility] BLOOD GAS, ARTERIAL 2021-01-11 Uk[place], Nduka Bowen [facility]:20[facility] [facility] BASIC METABOLIC PANEL (7) 2021-01-11 Ukah, Nduka Bowen [facility]:20:[address] [facility] LACTIC ACID, ARTERIAL 2021-01-11 Ukah, Nduka Bowen [facility] 22:20:[address] [facility] BLOOD GAS, ARTERIAL 2021-01-11 Steve, Michael [facility] 20:48:00 [facility] OXYGEN SATURATION, MEASURED 2021-01-11 Steve, Michael [facility] 20:46:00 [facility] XR CHEST 1 VIEW PORTABLE / 2021-01-11 [place], Nduka Bowen [facility] BED[facility] 19:44:[address] [facility] BLOOD GAS, ARTERIAL 2021-01-11 [place], Nduka Bowen [facility] 19:[facility]:[address] [facility] PROTHROMBIN TIME/INR 2021-01-11 Uk[place], Nduka Bowen [facility] 19:36:00 [facility] APTT 2021-01-11 Ukah, Nduka Bowen [facility] 19:36:00 [facility] FIBRINOGEN 2021-01-11 Ukah, Nduka Bowen [facility] 19:36:00 [facility] THROMBOELASTOGRAPH (TEG) 2021-01-11 [place], Nduka Bowen [facility] 19:36:[address] [facility] CALCIUM, IONIZED 2021-01-11 Worah, Galen [facility] 19:35:[address] [facility] BASIC METABOLIC PANEL (7) 2021-01-11 McwilliamsEstefany Mcwilliams [facility] 19:35:00 [facility] MAGNESIUM 2021-01-11 Estefany Mcwilliams Mcwilliams [facility] 19:35:00 [facility] PHOSPHORUS 2021-01-11 Mcwilliams, Ramires-Vu Mcwilliams [facility] 19:35:00 [facility] BLOOD GAS, ARTERIAL 2021-01-11 [facility], Nacho Wiseman [facility] [facility] LACTIC ACID, ARTERIAL 2021-01-11 [facility], Nacho Wiseman [facility] 19:35:00 [facility] CBC (HEMOGRAM ONLY) 2021-01-11 [facility], Nach[facility] Wiseman [facility] 19:35:00 [facility] SODIUM NA-STAT LAB 2021-01-11 [facility], [facility] Wis[facility] 19:35:00 [facility] POTASSIUM-STAT LAB 2021-01-11 [facility], Nach[facility] Wiseman [facility] 19:35:00 [facility] GLUCOSE-STAT LAB 2021-01-11 [facility], Nach[facility] Wiseman [facility] 19:35:00 [facility] HGB/HCT (H&H) - STAT LAB 2021-01-11 [facility], Nacho Wiseman [facility] 19:35:00 [facility] TRANSFUSE PLASMA 2021-01-[address] [facility] 18:01:[address] [facility] BLOOD GAS, ARTERIAL 2021-01-[address] [facility] 17:36:[address] [facility] CALCIUM, IONIZED 2021-01-[address] [facility] 17:36:44 Medical Center SODIUM NA-STAT LAB 2021-01-[address] [facility] 17:36:44 [facility] POTASSIUM-STAT LAB 2021-01-[address] [facility] 17:36:44 [facility] GLUCOSE-STAT LAB 2021-01-[address] [facility] 17:36:44 [facility] HGB/HCT (H&H) - STAT LAB 2021-01-[address] [facility] [facility] TRANSFUSE LEUKO-REDUCED RED 2021-01-[address] [facility] BLOOD CELLS 17:35:09 [facility] TRANSFUSE LEUKO-REDUCED 2021-01-[address] [facility] PLATELETS 17:34:[address] [facility] TRANSFUSE LEUKO-REDUCED 2021-01-[address] [facility] PL[facility]LE[place] 17:33:[address] [facility] POCT-ACT 2021-01-[address] [facility] 17:28:00 [facility] BLOOD GAS, ARTERIAL 2021-01-11 Stu, Glenn [facility] 17:09:25 [facility] CALCIUM, IONIZED 2021-01-11 Stu, Glenn [facility] 17:09:25 [facility] PROTHROMBIN TIME/INR 2021-01-[address] [facility] 17:09:25 [facility] APTT 2021-01-11 Stu, Glenn [facility] 17:09:25 [facility] FIBRINOGEN 2021-01-11 Stu, Glenn [facility] 17:09:25 [facility] PLATELET COUNT 2021-01-11 Stu, Glenn [facility] 17:09:25 [facility] SODIUM NA-STAT LAB 2021-01-[address] [facility] 17:09:25 [facility] POTASSIUM-STAT LAB 2021-01-[address] [facility] 17:09:25 [facility] GLUCOSE-STAT LAB 2021-01-[address] [facility] 17:09:25 [facility] HGB/HCT (H&H) - STAT LAB 2021-01-[address] [facility] 17:09:25 [facility] (CELLAVISION MANUAL DIFF) 2021-01-11 Estefany Mcwilliams [facility] 17:09:00 [facility] CBC W/PLT COUNT & AUTO 2021-01-11 Estefany [facility]illiams [facility] DIFFERENTIAL 17:09:00 [facility] POCT-ACT 2021-01-[address] [facility] 17:08:00 [facility] BLOOD GAS, ARTERIAL 2021-01-[address] [facility] 16:42:49 [facility] CALCIUM, IONIZED 2021-01-[address] [facility] 16:42:49 [facility] SODIUM NA-STAT LAB 2021-01-11 [facility] 16:42:49 [facility] POTASSIUM-STAT LAB 2021-01-[address] [facility] 16:42:49 [facility] GLUCOSE-STAT LAB 2021-01-[address] [facility] 16:42:49 [facility] HGB/HCT (H&H) - STAT LAB 2021-01-[address] [facility] 16:42:49 [facility] FUNGUS CULTURE + SMEAR 2021-01-[address] [facility] 16:15:01 [facility] SURGICALLY OBTAINED CULTURE 2021-01-11 [facility] + GRAM STAIN 16:15:01 [facility] POCT-ACT 2021-01-[address] [facility] 16:01:00 [facility] BLOOD GAS, ARTERIAL 2021-01-[address] [facility] 15:58:32 [facility] SODIUM NA-STAT LAB 2021-01-[address] [facility] 15:58:32 [facility] POTASSIUM-STAT LAB 2021-01-[address] [facility] 15:58:32 [facility] GLUCOSE-STAT LAB 2021-01-[address] [facility] 15:58:32 [facility] HGB/HCT (H&H) - STAT LAB 2021-01-[address] [facility] 15:58:32 [facility] TISSUE EXAM 2021-01-[address] [facility] 15:53:00 [facility] POCT-ACT 2021-01-[address] [facility] 15:33:00 [facility] BLOOD GAS, ARTERIAL 2021-01-[address] [facility] 15:30:10 [facility] SODIUM NA-STAT LAB 2021-01-[address] [facility] 15:30:10 [facility] POTASSIUM-STAT LAB 2021-01-[address] [facility] 15:30:10 [facility] GLUCOSE-STAT LAB 2021-01-[address] [facility] 15:30:10 [facility] HGB/HCT (H&H) - STAT LAB 2021-01-[address] [facility] 15:30:10 [facility] BLOOD GAS, ARTERIAL 2021-01-[address] [facility] 14:57:31 [facility] SODIUM NA-STAT LAB 2021-01-[address] [facility] 14:57:31 [facility] POTASSIUM-STAT LAB 2021-01-[address] [facility] 14:57:31 [facility] GLUCOSE-STAT LAB 2021-01-[address] [facility] 14:57:31 [facility] HGB/HCT (H&H) - STAT LAB 2021-01-[address] [facility] 14:57:31 [facility] POCT-ACT 2021-01-[address] [facility] 14:48:00 [facility] ANESTHESIA VANCE 2021-01-[address] [facility] 14:31:03 [facility] POCT-ACT 2021-01-[address] [facility] 14:28:00 [facility] BLOOD GAS, ARTERIAL 2021-01-[address] [facility] 14:06:20 [facility] SODIUM NA-STAT LAB 2021-01-[address] [facility] 14:06:20 [facility] POTASSIUM-STAT LAB 2021-01-[address] [facility] 14:06:20 [facility] GLUCOSE-STAT LAB 2021-01-[address] [facility] 14:06:20 [facility] HGB/HCT (H&H) - STAT LAB 2021-01-[address] [facility] 14:06:20 [facility] REPLACEMENT,VALVE MITRAL 2021-01-[address] [facility] 13:12:00 [facility] VANCE,3D 2021-01-[address] [facility] 13:12:00 [facility] POCT-GLUCOSE METER 2021-01-[address] [facility] 12:41:00 [facility] BLOOD GAS, ARTERIAL 2021-01-[address] [facility] 09:38:00 [facility] BASIC METABOLIC PANEL (7) 2021-01-11 Wor, Galen [facility] 09:22:00 Medical Center CALCIUM, IONIZED 2021-01-11 Worah, Galen [facility] 09:22:00 [facility] Center PHOSPHORUS 2021-01-11 [facility], [place] [facility] 09:22:00 [facility] Center MAGNESIUM 2021-01-11 [facility], [place] [facility] 09:22:00 [facility] Center XR CHEST 1 VIEW PORTABLE / 2021-01-11 Benedict[facility] 09:19:00 [facility] POCT-GLUCOSE METER 2021-01-[address] [facility] 06:47:00 [facility] COMPREHENSIVE METABOLIC 2021-01-11 Taye [facility]atoro [facility] PANEL 04:05:[address] [facility] MAGNESIUM 2021-01-[address] [facility] 04:05:[address] [facility] PHOSPHORUS 2021-01-[address] [facility] 04:05:[address] [facility] BLOOD GAS, ARTERIAL 2021-01-[address] [facility] 04:05:00 [facility] (CELLAVISION MANUAL DIFF) 2021-01-[address] [facility] 04:04:[address] [facility] CBC W/PLT COUNT & AUTO 2021-01-[address] [facility] DIFFERENTIAL 04:04:[address] [facility] CALCIUM, IONIZED 2021-01-11 [facility], [place] [facility] 04:04:[address] [facility] POCT-GLUCOSE METER 2021-01-[address] [facility] 00:08:00 [facility] SARS-COV2/RT-PCR (HS & REF 2021-01-[address] [facility] LABS) 23:17:[address] [facility] BASIC METABOLIC PANEL (7) 2021-01-10 Worah, Galen [facility] 23:14:[address] [facility] CALCIUM, IONIZED 2021-01-10 [facility], [place] [facility] 23:14:00 [facility] Center PHOSPHORUS 2021-01-10 [facility], [place] [facility] 23:14:[address] [facility] MAGNESIUM 2021-01-[address] [facility] 23:14:00 [facility] [place] INSERT 2021-01-[address] [facility] CATH,ART,PERCUT,SHORTTERM 19:00:12 [facility] SPUTUM CULTURE + GRAM STAIN 2021-01-10 Irving, Taye [facility]:[address] [facility] BLOOD CULTURE 2021-01-10 Irving, Taye Kapadia [facility] 17:15:[address] [facility] 2D ECHO W/ DOPPLER 2021-01-10 Irving, Taye [facility]ad[facility] (CW/PW/COLOR) 16:47:[address] [facility] PROTHROMBIN TIME/INR 2021-01-10 Irving, Taye Kapadia [facility]:25:[address] [facility] APTT 2021-01-10 Irving, Taye Kapadia [facility] 16:25:[address] [facility] FIBRINOGEN 2021-01-10 Irving, Taye Kapadia [facility] 16:25:[address] [facility] BLOOD GAS, VENOUS 2021-01-10 Irving, Taye [facility]adia [facility]:25:[address] [facility] XR CHEST 1 VIEW PORTABLE / 2021-01-10 Irving, [facility] 15:41:00 [facility] TYPE AND SCREEN, AUTOMATED 2021-01-10 Irving, T[facility]adia [facility] 15:38:[address] [facility] (CELLAVISION MANUAL DIFF) 2021-01-10 Irving, Taye Kapadia [facility] 15:38:[address] [facility] CBC W/PLT COUNT & AUTO 2021-01-10 Irving, Taye Kapadia [facility] DIFFERENTIAL 15:38:[address] [facility] COMPREHENSIVE METABOLIC 2021-01-10 Irving, Taye Kapadia [facility] PANEL 15:38:[address] [facility] MAGNESIUM 2021-01-10 Irving, Taye Kapadia [facility] 15:38:[address] [facility] PHOSPHORUS 2021-01-10 Irving, Taye Kapadia [facility] 15:38:[address] [facility] LACTIC ACID, VENOUS 2021-01-10 Irving, Taye [facility]ad[facility]:[address] [facility] POCT-GLUCOSE METER 2021-01-[address] [facility] 15:01:00 [facility] ECG 12-LEAD 2021-01-10 Unknown, Hl7 Doctor [facility] 14:08:05 Medical Center EXTERNAL PROVIDER RECORDS 2019-08-03 Doctor Unassigned, Uni [facility] [place] 06:01:00 [facility] Plan of Care Planned Activity Planned Date Details Comments Source Future Scheduled 2024-01-16 Lipid panel (procedure) [facility] 00:00:00 [code = 70584473] Medical Ce nter Future Scheduled 2024-01-16 Lipid panel (procedure) [facility] 00:00:00 [code = 28861262] Medical Ce nter Future Scheduled 2024-01-16 Lipid panel (procedure) [facility] 00:00:00 [code = 40052392] Medical Ce nter Future Scheduled 2024-01-16 Lipid panel (procedure) [facility] 00:00:00 [code = 87684275] Medical Ce nter Future Scheduled 2023-02-[address] [facility] 00:00:00 (Season Ended) [code = [facility] Center INFLUENZA VACCINE (Season Ended)] Future Scheduled 2022-06-[address] [facility] 00:00:00 (12+) [code = Medical Center DEPRESSION SCREENING (12+)] Future Scheduled 2022-04-[address] [facility] 00:00:00 Counseling and Medical Cente r Screening (12+) [code = Tobacco Cessation Counseling and Screening (12+)] Future Scheduled 2021-02-08 INFLUENZA VACCINE (#1) [facility] 00:00:00 [code = INFLUENZA Medical Ce nter VACCINE (#1)] Future Scheduled 2021-02-08 INFLUENZA VACCINE (#1) [facility] 00:00:00 [code = INFLUENZA Medical Ce nter VACCINE (#1)] Future Scheduled 2021-02-08 INFLUENZA VACCINE (#1) [facility] 00:00:00 [code = INFLUENZA Medical Ce nter VACCINE (#1)] Future Scheduled 2020-06-[address] [facility] 00:00:00 (12+) [code = Medical Center DEPRESSION SCREENING (12+)] Future Scheduled 2020-06-[address] [facility] 00:00:00 (12+) [code = Medical Center DEPRESSION SCREENING (12+)] Future Scheduled 2020-06-[address] [facility] 00:00:00 (12+) [code = Medical Center [...] Medical Eleuterio ter VACCINE (1)] Future Scheduled [address] [facility] 00:00:00 0-64 YRS (1 - PCV) Medical C enter [code = PNEUMOCOCCAL VACCINE 0-64 YRS (1 - PCV)] Future Scheduled 1977 COVID-19 VACCINE (#1) [facility] 00:00:00 [code = COVID-[address] VACCINE (#1)] Future Scheduled 1977 CT Colonography (combo) [facility] 00:00:00 [code = CT Colonography [facility] (combo)] Future Scheduled 1977 Screening for malignant [facility] 00:00:00 neoplasm of colon Medical Ce nter (procedure) [code = 478304736] Future Scheduled 1977 Screening for malignant [facility] 00:00:00 neoplasm of colon Medical Ce nter (procedure) [code = 439565892] Future Scheduled 1977 Screening for malignant [facility] 00:00:00 neoplasm of colon Medical Ce nter (procedure) [code = 613166599] Future Scheduled 1977 Screening for malignant [facility] 00:00:00 neoplasm of colon Medical Ce nter (procedure) [code = 506657385] Future Scheduled 1977 Sigmoidoscopy [code = [facility] Sigmoidoscopy] Medical Cente r Encounters Start End Encounter Admission Attending Care Care Encounter Source Date/Time Date/Time Type Type Clinicians Facility Department ID 2022-10-17 Outpatient [id number] Memoria 08:24:56 [id number] Demond [id number] 2022-07-04 Outpatient Jona [facility] [id number] Univers 14:35:03 JOSE kaufman [facility] 2022-03-27 Outpatient [id number] Memoria 13:22:33 [id number] Demond [id number] 2021-04-06 [facility] [id number] Univers 23:36:40 TED kaufman [facility] 2021-04-06 Outpatient ELICIA [facility] [id number] Univers 13:49:25 TED kaufman [facility] 2021-03-14 Outpatient [id number] Memoria 16:36:28 [id number] Orlinda [id number] 2021-01-09 [facility] Cardiology [id number] 00[facility]00 Encounter [facility] 2019-03-15 Inpatient MHSW PUL [id number] [facility] 17:40:00 2022-10-11 2022-10-11 [facility] [id number] Univers 13:45:00 13:45:00 JOSE marleny [facility] 2022-09-27 2022-09-27 [facility] [id number] Univers 13:45:00 13:45:00 JOSE [facility] 2022-08-23 2022-08-23 [id number] Univers 06:11:00 11:29:00 JOSE [facility] 2022-08-23 2022-08-23 [facility] [id number] Univers 06:11:00 11:29:00 Encounter Jose FLEMING [id number] [place] [id number] [facility] 071 Branch 2022-08-23 2022-08-23 Surgery [facility] 1.2.840.114 [id number] Univers 07:10:00 10:15:00 Jose [place] 350.1.13.10 i [place] [id number] [facility] 020 Branch 2022-08-23 2022-08-23 Anesthesia Jeffrey Haile [facility] 1.2.840.11 [id number] Univers 07:51:00 10:07:00 Event HenryLeonidas 350.1.13.10 ity of [facility] [place] [id number] Med ical CENTER 020 Branch 2022-07-26 2022-07-26 Anesthesia Lazara, 1.2.840.8 [id number] Univers 07:58:29 07:58:29 Event Jeffrey 82716.1.1 ity of 3.104.2.7 [place] .3.233857 Medica l .8 Branch 2022-07-26 2022-07-26 Outpatient R [facility] [id number] Univers 06:49:00 07:52:00 JOSE ity of [facility] 2022-07-26 2022-07-26 [facility] [id number] Univers 06:49:00 07:52:00 Encounter Jose FLEMING [id number] ity of [facility] [place] [id number] [facility] ica CENTER 071 Branch 2022-07-24 2022-07-24 Travel 1.2.840.1 [id number] [id number] Univers 00:00:00 00:00:00 [id number] 350.1.13.10 ity of [place]104.2.[place]698 [place] .3.736944 084.8 Medica l .8 Branch 2022-07-17 2022-07-17 Telephone [facility], 1.2.840.6 [id number] Univers 00:00:00 00:00:00 Jose 03903.1.1 ity of 3.104.2.7 [place] .3.596106 Medica l .8 Branch 2022-07-13 2022-07-13 Telephone [facility], 1.2.840.7 [id number] Univers 00:00:00 00:00:00 Jose 02862.1.1 ity of 3.104.2.7 [place] .3.435419 Medica l .8 Branch 2022-07-13 2022-07-13 Telephone [place], 1.2.840.4 [id number] Univers 00:00:00 00:00:00 Jose 03660.1.1 ity of 3.104.2.7 [place] .3.287380 Medica l .8 Branch 2022-07-12 2022-07-12 [facility], 1.2.840.2 [id number] Univers 00:00:00 00:00:00 Encounter Jose 01466.1.1 it y of 3.104.2.7 [place] .3.129818 Medica l .8 Branch 2022-07-11 2022-07-11 Houseperson Jose Paz 1.2.840.1 [id number] Univers 15:15:00 15:30:00 Visit Pob, Adc Lab Main 17188.1.1 ity of 3.104.2.7 [place] .3.071005 Medica l .8 Branch 2022-07-11 2022-07-11 Outpatient R JACKSON, [facility] [id number] Univers 15:15:00 15:15:00 JOSE ity of [facility] 2022-07-11 2022-07-11 Orders Doctor 1.2.840.5 [id number] Univers 00:00:00 00:00:00 Only Unassigned, 59547.1.1 ity of [place] 3.104.2.7 [place] .3.179449 Medica l .8 Branch 2022-07-11 2022-07-11 Travel 1.2.840.1 [id number] [id number] Univers 00:00:00 00:00:00 [id number] 350.1.13.10 ity of 3.104.2.[place] 4[place]3.698 [place] .3.049436 084.8 Medica l .8 Branch 2022-07-09 2022-07-09 Travel 1.2.840.1 1.2.053.176 [id number] Univers 00:00:00 00:00:00 [id number] 350.1.13.10 ity of 3.104.2.[place]3.698 [place] .3.119739 084.8 Medica l .8 [place] 2022-07-04 2022-07-04 Anesthesia Lazara, 1.2.840.5 [id number] Univers 23:59:59 23:59:59 Event Jeffrey 15471.1.1 ity of 3.104.2.7 [place] .3.467834 Medica l .8 [place] 2022-06-28 2022-06-28 Outpatient R [facility] [id number] Univers 14:00:00 14:54:52 JOSE ity of [facility] 2022-06-28 2022-06-28 Office Jackson, 1.2.840.7 [id number] Univers 14:00:00 14:54:52 Visit Joes 58974.1.1 ity of 3.104.2.7 [place] .3.389535 Medica l .8 [place] 2022-06-28 2022-06-28 Orders Doctor 1.2.840.6 [id number] Univers 00:00:00 00:00:00 Only Unassigned, 80656.1.1 ity of [place] 3.104.2.7 [place] .3.788460 Medica l .8 [place] 2022-06-09 2022-06-10 Emergency Teo Lemus 1.2.840.4 [id number] Univers 10:34:00 11:21:00 Robbi Jeter 48238.1.1 ity of Dylan Haro 3.104.2.7 [place] .3.962036 Medica l .8 [place] 2022-06-09 2022-06-10 Outpatient X ROBBI JETER [facility] ALEX 10 [id number] Univers 10:34:00 11:21:00 ROBBI JETER i ty of [facility] 2022-06-09 2022-06-09 Travel 1.2.840.1 1.2.071.046 [id number] Univers 00:00:00 00:00:00 46931.1.1 350.1.13.10 ity of 3.104.2.7 [place].3.698 [place] .3.2625[place] 084.8 Medica l .8 [place] 2022-05-24 2022-05-24 Outpatient Jona PAZ, [facility] [id number] Univers 14:45:00 14:45:00 JOSE ity of [facility] 2022-05-15 2022-05-15 Telephone Faculty, 1.2.840.7 [id number] Univers 00:00:00 00:00:00 Vascular 38852.1.1 ity of Surg 3.104.2.7 [place] .3.505586 Medica l .8 [place] 2022-05-01 2022-05-01 Orders Doctor 1.2.840.1 [id number] Univers 00:00:00 00:00:00 Only Unassigned, 54909.1.1 ity of [place] 3.104.2.7 [place] .3.601925 Medica l .8 [place] 2021-04-12 2021-04-12 Outpatient QUITA CASTELLANO [facility] [id number] [facility] 13:05:26 13:05:26 [facility] 2021-04-04 2021-04-04 Outpatient [facility] [id number] [facility] 00:00:00 00:00:00 BAKARI 2021-03-27 2021-03-27 Outpatient [facility] [id number] [facility] 00:00:00 00:00:00 [facility] 2021-03-27 2021-03-27 [facility]patient [facility] [id number] [facility] 00:00:00 00:00:00 SUDEEP 2021-01-10 2021-03-25 Inpatient DEDE ORTIZ, [facility] Emergency [id number] [facility] 14:49:00 17:10:00 JU 2021-03-20 2021-03-20 Outpatient [facility] [id number] [facility] 00:00:00 00:00:00 SUDEEP 2021-03-20 2021-03-20 Outpatient [facility] [id number] [facility] 00:00:00 00:00:00 [facility] 2021-03-10 2021-03-10 Outpatient STAN [facility] SLE [id number] [facility] 00:00:00 00:00:00 [facility] 2021-03-01 2021-03-01 Outpatient STAN SLEOren SLE [id number] [facility] 00:00:00 00:00:00 [facility] 2021-02-15 2021-02-15 Outpatient STAN SLE SLE [id number] [facility] 00:00:00 00:00:00 [facility] 2021-02-15 2021-02-15 Outpatient STAN SLE SLE [id number] [facility] 00:00:00 00:00:00 [facility] 2021-01-31 2021-01-31 Outpatient [facility] [id number] [facility] 00:00:00 00:00:00 [facility] 2021-01-23 2021-01-23 Outpatient [facility] [id number] [facility] 11:45:00 23:59:00 [facility] 2021-01-23 2021-01-23 Surgery Omar, [facility] [id number] 14:18:00 16:57:00 [facility] 2021-01-23 2021-01-[address] [facility] [id number] [facility] 12:46:00 15:41:00 Event Alden Arias [facility] 2021-01-22 2021-01-22 Anesthesia Ekta, [facility] [id number] 06:27:40 06:27:[address] [facility] 2021-01-21 2021-01-21 Travel [facility] [id number] [facility] 00:[facility]00 00:00:00 [facility] 2021-01-16 2021-01-16 Outpatient [facility] [id number] [facility] 00:00:00 23:59:00 [facility] 2021-01-16 2021-01-[address] [facility] [id number] 14:00:00 14:00:00 Event Arcadio Hodge [facility] 2021-01-11 2021-01-[address] [facility] [id number] [facility] 13:02:00 19:30:00 Event Suzie Beth [facility] 2021-01-11 2021-01-[address] [facility] [id number] 13:43:00 16:58:00 [facility] 2021-01-10 2021-01-10 Outpatient BCM BCM [id number] [facility] 14:49:00 23:59:00 [facility] 2021-01-10 2021-01-10 Outpatient BCM BCM [id number] [facility] 14:49:00 14:49:00 [facility] 2021-01-10 2021-01-[address] [facility] [id number] 00:00:00 00:00:00 Only [facility] 2020-12-15 2020-12-15 Outpatient R RICA [facility] [id number] Univers 13:30:00 13:30:00 WONDIFUL itmarleny benavidez f [facility] 2020-02-01 2020-02-01 Telephone [facility] 1.2.840.114 [id number] 00:00:00 00:00:00 Agus R SPECIALTY 350.1.13.10 CARE 4.2.7.2.686 CENTER AT [id number] [address] 2020-02-01 2020-02-01 Telephone [facility] 1.2.840.114 [id number] [facility] 00:00:00 00:00:00 Agus R SPECIALTY 350.1.13.10 ity of CARE 4.2.7.2.686 [facility] CENTER AT [id number] [place] [address] 2019-12-22 2019-12-22 Telephone Faculty, UNIVERSIT 1.2.840.114 [id number] 00:00:00 00:00:00 Vascular Y HEALTH 350.1.13.10 Surg CLINICS 4.2.7.2.686 [id number] 2019-12-22 2019-12-22 Telephone Jacquie [facility] 1.2.840.114 [id number] Univers 00:00:00 00:00:00 Vascular Y HEALTH 350.1.13.10 ity of Surg CLIN[place] [id number] [address] 2019-11-19 2019-11-19 Telephone Rubi [facility] 1.2.840.114 [id number] 00:00:00 00:00:00 Ted Y HEALTH 350.1.13.10 CLINICS 4.2.7.2.686 [id number] [facility] 2019-11-19 2019-11-19 Telephone Rubi [facility] 1.2.840.114 [id number] Univers 00:00:00 00:00:00 Ted Y HEALTH 350.1.13.10 i ty [place] [id number] [address] 2019-11-04 2019-11-04 Telephone Rubi [facility] 1.2.840.114 [id number] 00:00:00 00:00:00 Tde Y HEALTH 350.1.13.10 CLINICS 4.2.7.2.686 [id number] [facility] 2019-11-04 2019-11-04 Telephone Rubi [facility] 1.2.840.114 [id number] Univers 00:00:00 00:00:00 Ted Y HEALTH 350.1.13.10 i ty [place] [id number] [address] 2019-08-19 2019-09-01 Office Rubi [facility] 1.2.081.414 [id number] Univers 11:01:36 12:14:59 Visit Ted Y HEALTH 350.1.13.10 i ty [place] [id number] [address] 2019-08-19 2019-08-19 Outpatient R ELICIA [facility] [id number] Univers 10:15:00 10:15:00 TED kaufman of [facility] 2019-08-03 2019-08-03 Orders Doctor BRENT 1.2.840.114 [id number] Univers 00:00:00 00:00:00 Only Unassigned, ROXIE 350.1.13.10 ity of [place] [facility] 4.2.7.2.686 [place] as [id number] [address] Results Test Description Test Time Test Comments Results Result Comments Source POCT GLUCOSE (AUTOMATED) 2022-08-23 15:02:02 Test Item Value Reference Range Interpretation Comme nts POCT GLU (test code = 4970925536) 132 mg/dL 70-110 H Lab Interpretation (test code = 32176-4) [facility]2022-[facility]23 15:02:02 Test Item Value Reference Range Interpretation Comments POCT GLU (test code = 7237482037) 132 mg/dL 70-110 H Lab Interpretation (test code = Abnormal 82362-4) [facility] [id number] 12:43:21 Test Item Value Reference Range Interpretation Comments K (test code = 7411359963) 5.8 mmol/L 3.5-5.0 H Lab Interpretation (test code = Abnormal 84492-8) [facility] [id number] 12:43:21 Test Item Value Reference Range Interpretation Comments K (test code = 3882685317) 5.8 mmol/L 3.5-5.0 H Lab Interpretation (test code = Abnormal 51367-9) [facility] [id number] 11:56:54 Test Item Value Reference Range Interpretation Comments K (test code = 6562325038) 6.8 mmol/L 3.5-5.0 HH S light hemolysis Lab Interpretation (test Abnormal code = 66697-0) [facility] [place] [facility] [id number] 11:56:54 Test Item Value Reference Range Interpretation Comments K (test code = 0274243754) 6.8 mmol/L 3.5-5.0 HH S light hemolysis Lab Interpretation (test Abnormal code = 86753-3) [facility] [place] [facility] [id number] 13:40:35 Test Item Value Reference Range Interpretation Comments K (test code = 0876979067) 5.0 mmol/L 3.5-5.0 Lab Interpretation (test code = Normal 09279-5) [facility] [id number] 13:40:35 Test Item Value Reference Range Interpretation Comments K (test code = 6602632728) 5.0 mmol/L 3.5-5.0 Lab Interpretation (test code = Normal 36381-3) [facility] -2022-07-11 23:13:27 Test Item Value Reference Range Interpretation Comments ABO & RH (test code O Negative Performe d at [facility] = 20) Laboratory Serv [facility] [address] [place], [place] [id number] Free: [phone] A No. [id number] IAT (test code = Negative Performed a t [facility] 1185) Laboratory [facility] [place], [place] [address]Toll Free: [phone] A No. [id number] [facility]Proth[facility] Time / [id number] 22:11:13 Test Item Value Reference Range Interpretation Comments PROTIME PATIENT (test 14.4 See_Comment [Auto mated message] code = 5964-2) The system wh ich generated this result transmitted ref erence range: 12.0 - 1 4.7 Seconds. The re ference range was not u sed to interpret this result as normal/abnor mal. INR (test code = 6301-6) 1.2 Nor mal INR <1.1; Warfarin Therap eutic range 2.0 to 3. 0 or 2.5 to 3.5, dep ending upon the indica tions. Lab Interpretation (test Normal code = 91824-7) [facility] WITH [id number] 22:09:37 Test Item Value Reference Range Interpretation Comments WBC (test code = 6.41 See_Comment [Automated 8389-2) message] The sy stem which generated this result transmitted reference range : 4.20 - 10.70 10*3/?L. The reference range was not used to interpret this result as normal/abnormal . RBC (test code = 3.15 See_Comment L [Automated 553-8) message] The sy stem which generated this result transmitted reference range : 4.26 - 5.52 10*6/?L. The reference range was not used to interpret this result as normal/abnormal . HGB (test code = 9.2 g/dL 12.2-16.4 L 718-7) HCT (test code = 29.3 % 38.4-49.3 L 4544-3) MCV (test code = 93.0 fL 81.7-95.6 787-2) MCH (test code = 29.2 pg 26.1-32.7 785-6) MCHC (test code = 31.4 g/dL 31.2-35.0 786-4) RDW-SD (test code = 50.8 fL 38.5-51.6 85333-4) RDW-CV (test code = 15.0 % 12.1-15.4 788-0) PLT (test code = 174 See_Comment [Automated 777-3) message] The sy stem which generated this result transmitted reference range : 150 - 328 10*3/ ?L. The reference r kevin was not used to interpret this result as normal/abnormal . MPV (test code = 9.7 fL 9.8-13.0 L 07908-6) NRBC/100 WBC (test 0.0 See_Comment [Automat ed code = 6773121346) message] The system which generated this result transmitted reference range : 0.0 - 10.0 /100 WBCs. The refer ence range was not u sed to interpret th is result as normal/abnormal . NRBC x10^3 (test code See_Comment [Auto mated = 8751334881) message] The s ystem which generated this result transmitted reference range : 10*3/?L. The reference range was not used to interpret this result as normal/abnormal . GRAN MAT (NEUT) % 73.4 % (test code = 770-8) IMM GRAN % (test code 0.50 % = 1866980472) LYMPH % (test code = 13.4 % 736-9) MONO % (test code = 10.1 % 5905-5) EOS % (test code = 2.0 % 713-8) BASO % (test code = 0.6 % 706-2) GRAN MAT x10^3(ANC) 4.70 10*3/uL 1.99-6.95 (test code = 7134538144) IMM GRAN x10^3 (test 0.03 10*3/uL 0.00-0.06 code = 3095103110) LYMPH x10^3 (test code 0.86 10*3/uL 1.09-3.23 L = 731-0) MONO x10^3 (test code 0.65 10*3/uL 0.36-1.02 = 742-7) EOS x10^3 (test code = 0.13 10*3/uL 0.06-0.53 711-2) BASO x10^3 (test code 0.04 10*3/uL 0.01-0.09 = 704-7) Lab Interpretation Abnormal (test code = 01490-6) [facility]. METABOLIC PANEL (29634)2022-07-11 22:07:19 Test Item Value Reference Range Interpretation Comments NA (test code = 142 mmol/L 135-145 3071985864) K (test code = 4.9 mmol/L 3.5-5.0 8829504236) CL (test code = 102 mmol/L 98-108 4240891095) CO2 TOTAL (test code = 26 mmol/L 23-31 0031117112) AGAP (test code = 14 2-16 4821283176) BUN (test code = 74 mg/dL 7-23 H 4048372151) GLUCOSE (test code = 125 mg/dL 70-110 H 1013852786) CREATININE (test code = 11.56 mg/dL 0.60-1.25 H 9874503349) TOTAL BILI (test code = 0.7 mg/dL 0.1-1.2 5157770163) CALCIUM (test code = 8.5 mg/dL 8.6-10.6 L 2246280634) T PROTEIN (test code = 7.7 g/dL 6.3-8.2 9139251026) ALBUMIN (test code = 4.1 g/dL 3.5-5.0 0949958328) ALK PHOS (test code = 94 U/L 34-122 7755026587) ALTv (test code = 18 U/L 5-50 1742-6) AST(SGOT) (test code = 22 U/L 13-40 0958019117) eGFR (test code = 4.8 mL/min/1.73m2 4933203903) CARLEY (test code = CARLEY) Association of Glomerular Filtration Rate (GFR) and Staging of Kidney Disease* + --+ --+ ------+| GFR (mL/min/1.73 m2) ?| With Kidney Damage ?| ?Without Kidney Damage+ --------+ --------+ +| ?>90 ?| ?Stage one ?| ? Normal ?+ ---+ ---+ -------+| ?60-89 ?| ?Stage two ?| ? Decreased GFR ? + --+ --+ ------+| ?30-59 ?| ?Stage three ?| ? Stage three ? + --+ --+ ------+| ?15-29 ?| ?Stage four ? | ? Stage four ?+ ---+ ---+ -------+| ?<15 (or dialysis) ? ?| ?Stage five ? | ? Stage five ?+ ---+ ---+ -------+ *Each stage assumes the associated GFR level has been in effect for at least three months. ?Stages 1 to 5, with or without kidney disease, indicate chronic kidney disease. Notes: Determination of stages one and two (with eGFR >59mL/min/1.73 m2) requires estimation of kidney damage for at least three months as defined by structural or functional abnormalities of the kidney, manifested by either:Pathological abnormalities or Markers of kidney damage (including abnormalities in the composition of the blood or urine or abnormalities in imaging tests). Lab Interpretation Abnormal (test code = 92010-8) [facility] Metabolic Panel (NA, K, CL, CO2, GLUCOSE, BUN, CREATININE, CA)2022-06-10 12:25:45 Test Item Value Reference Range Interpretation Comments NA (test code = 136 mmol/L 135-145 3934440204) K (test code = 4.2 mmol/L 3.5-5.0 5283946761) CL (test code = 102 mmol/L 98-108 3495941483) CO2 TOTAL (test code = 23 mmol/L 23-31 1851018988) AGAP (test code = 2-16 8395357571) BUN (test code = 47 mg/dL 7-23 H 6026567555) GLUCOSE (test code = 89 mg/dL 70-110 4504322290) CREATININE (test code = 7.99 mg/dL 0.60-1.25 H 0496005971) CALCIUM (test code = 9.4 mg/dL 8.6-10.6 5408313491) eGFR (test code = mL/min/1.73m2 5012717064) CARLEY (test code = CARLEY) Association of Glomerular Filtration Rate (GFR) and Staging of Kidney Disease* + --+ --+ ------+| GFR (mL/min/1.73 m2) ?| With Kidney Damage ?| ?Without Kidney Damage+ --------+ --------+ +| ?>90 ?| ?Stage one ?| ? Normal ?+ ---+ ---+ -------+| ?60-89 ?| ?Stage two ?| ? Decreased GFR ? + --+ --+ ------+| ?30-59 ?| ?Stage three ?| ? Stage three ? + --+ --+ ------+| ?15-29 ?| ?Stage four ? | ? Stage four ?+ ---+ ---+ -------+| ?<15 (or dialysis) ? ?| ?Stage five ? | ? Stage five ?+ ---+ ---+ -------+ *Each stage assumes the associated GFR level has been in effect for at least three months. ?Stages 1 to 5, with or without kidney disease, indicate chronic kidney disease. Notes: Determination of stages one and two (with eGFR >59mL/min/1.73 m2) requires estimation of kidney damage for at least three months as defined by structural or functional abnormalities of the kidney, manifested by either:Pathological abnormalities or Markers of kidney damage (including abnormalities in the composition of the blood or urine or abnormalities in imaging tests). Lab Interpretation Abnormal (test code = 40416-3) [facility] Metabolic Panel (NA, K, CL, CO2, GLUCOSE, BUN, CREATININE, CA)2022-06-10 12:25:45 Test Item Value Reference Range Interpretation Comments NA (test code = 136 mmol/L 135-145 0578794911) K (test code = 4.2 mmol/L 3.5-5.0 4173771935) CL (test code = 102 mmol/L 98-108 2250908115) CO2 TOTAL (test code = 23 mmol/L 23-31 7685241124) AGAP (test code = 11 2-16 6721415363) BUN (test code = 47 mg/dL 7-23 H 5795030169) GLUCOSE (test code = 89 mg/dL 70-110 9476106405) CREATININE (test code = 7.99 mg/dL 0.60-1.25 H 8482074613) CALCIUM (test code = 9.4 mg/dL 8.6-10.6 5906884861) eGFR (test code = 7.3 mL/min/1.73m2 0501904382) CARLEY (test code = CARLEY) Association of Glomerular Filtration Rate (GFR) and Staging of Kidney Disease* + --+ --+ ------+| GFR (mL/min/1.73 m2) ?| With Kidney Damage ?| ?Without Kidney Damage+ --------+ --------+ +| ?>90 ?| ?Stage one ?| ? Normal ?+ ---+ ---+ -------+| ?60-89 ?| ?Stage two ?| ? Decreased GFR ? + --+ --+ ------+| ?30-59 ?| ?Stage three ?| ? Stage three ? + --+ --+ ------+| ?15-29 ?| ?Stage four ? | ? Stage four ?+ ---+ ---+ -------+| ?<15 (or dialysis) ? ?| ?Stage five ? | ? Stage five ?+ ---+ ---+ -------+ *Each stage assumes the associated GFR level has been in effect for at least three months. ?Stages 1 to 5, with or without kidney disease, indicate chronic kidney disease. Notes: Determination of stages one and two (with eGFR >59mL/min/1.73 m2) requires estimation of kidney damage for at least three months as defined by structural or functional abnormalities of the kidney, manifested by either:Pathological abnormalities or Markers of kidney damage (including abnormalities in the composition of the blood or urine or abnormalities in imaging tests). Lab Interpretation Abnormal (test code = 12944-2) [facility] (NA, K, CL, CO2, GLUCOSE, BUN, CREATININE, CA)2022-06-10 05:32:20 Test Item Value Reference Range Interpretation Comments NA (test code = 137 mmol/L 135-145 9572274698) K (test code = 6.8 mmol/L 3.5-5.0 HH 7984757520) CL (test code = 101 mmol/L 98-108 7419916912) CO2 TOTAL (test code = 20 mmol/L 23-31 L 4390957247) AGAP (test code = 2-16 5640691996) BUN (test code = 104 mg/dL 7-23 H 7772540148) GLUCOSE (test code = 98 mg/dL 70-110 9330639784) CREATININE (test code = 15.10 mg/dL 0.60-1.25 H 5865897497) CALCIUM (test code = 8.6 mg/dL 8.6-10.6 3649301914) eGFR (test code = mL/min/1.73m2 4330208795) CARLEY (test code = CARLEY) Association of Glomerular Filtration Rate (GFR) and Staging of Kidney Disease* + --+ --+ ------+| GFR (mL/min/1.73 m2) ?| With Kidney Damage ?| ?Without Kidney Damage+ --------+ --------+ +| ?>90 ?| ?Stage one ?| ? Normal ?+ ---+ ---+ -------+| ?60-89 ?| ?Stage two ?| ? Decreased GFR ? + --+ --+ ------+| ?30-59 ?| ?Stage three ?| ? Stage three ? + --+ --+ ------+| ?15-29 ?| ?Stage four ? | ? Stage four ?+ ---+ ---+ -------+| ?<15 (or dialysis) ? ?| ?Stage five ? | ? Stage five ?+ ---+ ---+ -------+ *Each stage assumes the associated GFR level has been in effect for at least three months. ?Stages 1 to 5, with or without kidney disease, indicate chronic kidney disease. Notes: Determination of stages one and two (with eGFR >59mL/min/1.73 m2) requires estimation of kidney damage for at least three months as defined by structural or functional abnormalities of the kidney, manifested by either:Pathological abnormalities or Markers of kidney damage (including abnormalities in the composition of the blood or urine or abnormalities in imaging tests). Lab Interpretation Abnormal (test code = 43394-5) [facility] [id number] 05:31:09 Test Item Value Reference Range Interpretation Comments FERRITIN (test code = 1260.0 ng/mL 18.0-464.0 H 0971287819) CARLEY (test code = CARLEY) Biotin has been reported to cause a negative bias, interpret results relative to patient's use of biotin. Lab Interpretation (test Abnormal code = 82824-0) [facility] [id number] 05:31:09 Test Item Value Reference Range Interpretation Comments FERRITIN (test code = 1260.0 ng/mL 18.0-464.0 H 7813401931) CARLEY (test code = CARLEY) Biotin has been reported to cause a negative bias, interpret results relative to patient's use of biotin. Lab Interpretation (test Abnormal code = 89375-1) [facility] [id number] 05:25:17 Test Item Value Reference Interpretation Comments Range TROPONIN I (test 0.136 ng/mL See_Comment H [Automated code = 7498191518) message] The system which generated this result transmitted reference range : <=0.034. The reference range was not used to interpret this result as normal/abnormal . CARLEY (test code = Reference (Normal) CARLEY) Range (defined by the 99th percentile reference limit): <= 0.034 ng/mL Note: Cardiac troponin begins to rise 3-4 hours after the onset of ischemia. Repeat in 4-6 hours if the sample was drawn within 3-4 hours of the onset of the symptom and found normal. Diagnosis of myocardial injury is made with acute changes in cTn concentrations with at least one serial sample above the 99th percentile upper reference limit (URL), taken together with the patient's clinical presentation. Biotin has been reported to cause a negative bias, interpret results relative to patient's use of biotin. Lab Interpretation Abnormal (test code = 27246-5) [facility] [id number] 05:25:17 Test Item Value Reference Range Interpretation Comments TROPONIN I (test code = 0.136 ng/mL <=0.034 H 3993496468) CARLEY (test code = CARLEY) Reference (Normal) Range (defined by the 99th percentile reference limit): <= 0.034 ng/mL Note: Cardiac troponin begins to rise 3-4 hours after the onset of ischemia. Repeat in 4-6 hours if the sample was drawn within 3-4 hours of the onset of the symptom and found normal. Diagnosis of myocardial injury is made with acute changes in cTn concentrations with at least one serial sample above the 99th percentile upper reference limit (URL), taken together with the patient's clinical presentation. Biotin has been reported to cause a negative bias, interpret results relative to patient's use of biotin. Lab Interpretation Abnormal (test code = 95199-5) [facility] (99183) (ALB,T.PRO,BILI T,BU/BC,ALT,AST,ALK PHOS)2022-06-10 05:11:59 Test Item Value Reference Range Interpretation Comments TOTAL BILI (test code = 7589597601) 0.7 mg/dL 0.1-1.1 BILI UNCON (test code = 5747320785) 0.0 mg/dL 0.1-1.1 L BILI CONJ (test code = 7741535467) 0.0 mg/dL 0.0-0.3 T PROTEIN (test code = 0535300580) 7.4 g/dL 6.3-8.2 ALBUMIN (test code = 9919304662) 3.9 g/dL 3.5-5.0 ALK PHOS (test code = 8195954688) 101 U/L 34-122 ALTv (test code = 1742-6) 27 U/L 5-50 AST(SGOT) (test code = 7679908325) 33 U/L 13-40 Lab Interpretation (test code = Abnormal 31699-0) [facility] [id number] 05:11:59 Test Item Value Reference Range Interpretation Comments MAGNESIUM (test code = 3442557853) 2.1 mg/dL 1.7-2.4 Lab Interpretation (test code = Normal 57499-4) [facility] [id number] 05:11:59 Test Item Value Reference Range Interpretation Comments PHOSPHORUS (test code = 2067925059) 7.7 mg/dL 2.5-5.0 H Lab Interpretation (test code = Abnormal 66699-6) [facility] [id number] 05:11:59 Test Item Value Reference Range Interpretation Comments PHOSPHORUS (test code = 9681827155) 7.7 mg/dL 2.5-5.0 H Lab Interpretation (test code = Abnormal 46263-3) [facility] [id number] 05:11:59 Test Item Value Reference Range Interpretation Comments MAGNESIUM (test code = 2175811625) 2.1 mg/dL 1.7-2.4 Lab Interpretation (test code = Normal 37171-5) [facility] (70248) (ALB,T.PRO,BILI T,BU/BC,ALT,AST,ALK PHOS)2022-06-10 05:11:59 Test Item Value Reference Range Interpretation Comments TOTAL BILI (test code = 4837148262) 0.7 mg/dL 0.1-1.1 BILI UNCON (test code = 4826632443) 0.0 mg/dL 0.1-1.1 L BILI CONJ (test code = 0385022539) 0.0 mg/dL 0.0-0.3 T PROTEIN (test code = 3392861285) 7.4 g/dL 6.3-8.2 ALBUMIN (test code = 0158500375) 3.9 g/dL 3.5-5.0 ALK PHOS (test code = 2210122415) 101 U/L 34-122 ALTv (test code = 1742-6) 27 U/L 5-50 AST(SGOT) (test code = 7440504719) 33 U/L 13-40 Lab Interpretation (test code = Abnormal 10065-2) [facility] [id number] 05:00:17 Test Item Value Reference Range Interpretation Comments PROTIME PATIENT (test See_Comment H [Auto mated message] code = 5964-2) The system [employer] generated this result transmitted ref erence range: 10.1 - 1 2.6 Seconds. The reference range was not used to int erpret this result as normal/abnormal . INR (test code = 6301-6) Nor mal INR <1.1; Warfarin Therap eutic range 2.0 to 3. 0 or 2.5 to 3.5, dep ending upon the indica tions. Lab Interpretation (test Abnormal code = 87925-4) [facility] Test Item Value Reference Range Interpretation Comments APTT Patient (test code = See_Comment [ Automated message] 3483-2) The system [employer] generated this result transmitted ref erence range: 26 - 36 Seconds. The re ference range was not u sed to interpret this result as normal/abnor mal. Lab Interpretation (test Normal code = 17022-7) [facility] Test Item Value Reference Range Interpretation Comments APTT Patient (test code = 34 See_Comment [ Automated message] 5943-2) The system [employer] generated this result transmitted ref erence range: 26 - 36 Seconds. The re ference range was not u sed to interpret this result as normal/abnor mal. Lab Interpretation (test Normal code = 56320-4) [facility]C)2022-06-10 05:00:07 Test Item Value Reference Range Interpretation Comments HGB A1C (test code = 4.9 % 4.0-5.7 4548-4) CARLEY (test code = CARLEY) Reference RangesNormal: <5.7%Prediabetes: 5.7 - 6.4%Diabetes: > 6.5% Lab Interpretation (test Normal code = 68990-6) [facility]2022-06-10 05:00:07 Test Item Value Reference Range Interpretation Comments HGB A1C (test code = 4.9 % 4.0-5.7 4548-4) CARLEY (test code = CARLEY) Reference RangesNormal: <5.7%Prediabetes: 5.7 - 6.4%Diabetes: > 6.5% Lab Interpretation (test Normal code = 04853-4) [facility] [id number] 04:48:39 Test Item Value Reference Range Interpretation Comments WBC (test code = See_Comment [Automated 5690-2) message] The sy stem which generated this result transmitted reference range : 4.20 - 10.70 10*3/?L. The reference range was not used to interpret this result as normal/abnormal . RBC (test code = See_Comment L [Automated 789-8) message] The sy stem which generated this result transmitted reference range : 4.26 - 5.52 10*6/?L. The reference range was not used to interpret this result as normal/abnormal . HGB (test code = 8.2 g/dL 12.2-16.4 L 718-7) HCT (test code = 26.1 % 38.4-49.3 L 4544-3) MCV (test code = 90.9 fL 81.7-95.6 787-2) MCH (test code = 28.6 pg 26.1-32.7 785-6) MCHC (test code = 31.4 g/dL 31.2-35.0 786-4) RDW-SD (test code = 47.0 fL 38.5-51.6 14322-9) RDW-CV (test code = 14.4 % 12.1-15.4 788-0) PLT (test code = See_Comment [Automated 777-3) message] The sy stem which generated this result transmitted reference range : 150 - 328 10*3/ ?L. The reference r kevin was not used to interpret this result as normal/abnormal . MPV (test code = 10.4 fL 9.8-13.0 59526-5) NRBC/100 WBC (test See_Comment [Automat ed code = 5529319263) message] The system which generated this result transmitted reference range : 0.0 - 10.0 /100 WBCs. The refer ence range was not u sed to interpret th is result as normal/abnormal . NRBC x10^3 (test code See_Comment [Auto mated = 2203734280) message] The s ystem which generated this result transmitted reference range : 10*3/?L. The reference range was not used to interpret this result as normal/abnormal . GRAN MAT (NEUT) % 76.4 % (test code = 770-8) IMM GRAN % (test code 0.50 % = 3351370396) LYMPH % (test code = 12.3 % 736-9) MONO % (test code = 8.3 % 5905-5) EOS % (test code = 1.9 % 713-8) BASO % (test code = 0.6 % 706-2) GRAN MAT x10^3(ANC) 6.10 10*3/uL 1.99-6.95 (test code = 9168020628) IMM GRAN x10^3 (test 0.04 10*3/uL 0.00-0.06 code = 7719657890) LYMPH x10^3 (test code 0.98 10*3/uL 1.09-3.23 L = 731-0) MONO x10^3 (test code 0.66 10*3/uL 0.36-1.02 = 742-7) EOS x10^3 (test code = 0.15 10*3/uL 0.06-0.53 711-2) BASO x10^3 (test code 0.05 10*3/uL 0.01-0.09 = 704-7) Lab Interpretation Abnormal (test code = 16395-1) [facility] [id number] 04:11:54 Test Item Value Reference Range Interpretation Comments IRON (test code = 4241951442) 45 ug/dL 50-160 L TIBC (test code = 3943977791) 176 ug/dL 250-410 L % FE SAT (test code = 7313128611) 26 % 20-50 Lab Interpretation (test code = Abnormal 64233-8) [facility] [id number] 04:11:54 Test Item Value Reference Range Interpretation Comments IRON (test code = 9501207482) 45 ug/dL 50-160 L TIBC (test code = 4115044302) 176 ug/dL 250-410 L % FE SAT (test code = 2135504582) 26 % 20-50 Lab Interpretation (test code = Abnormal 68811-6) [facility] [id number] 01:07:13 Test Item Value Reference Range Interpretation Comments K (test code = 2619657683) 5.7 mmol/L 3.5-5.0 H Lab Interpretation (test code = Abnormal 06751-9) [facility] Lead ROUTINE [id number] 00:46:42 Test Item Value Reference Range Interpretation Comments Lab Interpretation (test code = Abnormal 68834-3) [facility] GLUCOSE (AUTOMATED)2022-06-09 23:50:03 Test Item Value Reference Range Interpretation Comments POCT GLU (test code = 8560319434) 194 mg/dL 70-110 H Lab Interpretation (test code = Abnormal 11282-0) [facility] GLUCOSE (AUTOMATED)2022-06-09 23:50:03 Test Item Value Reference Range Interpretation Comments POCT GLU (test code = 5652143524) 194 mg/dL 70-110 H Lab Interpretation (test code = Abnormal 96255-1) [facility] METABOLIC PANEL (NA, K, CL, CO2, GLUCOSE, BUN, CREATININE, CA)2022-06-09 23:08:44 Test Item Value Reference Range Interpretation Comments NA (test code = 135 mmol/L 135-145 1251500611) K (test code = 6.9 mmol/L 3.5-5.0 HH 6787553356) CL (test code = 99 mmol/L 98-108 4097933585) CO2 TOTAL (test code = 20 mmol/L 23-31 L 8901897675) AGAP (test code = 2-16 3721156384) BUN (test code = 99 mg/dL 7-23 H 0204598634) GLUCOSE (test code = 129 mg/dL 70-110 H 9606403092) CREATININE (test code = 13.89 mg/dL 0.60-1.25 H 9067746490) CALCIUM (test code = 8.1 mg/dL 8.6-10.6 L 9879492024) eGFR (test code = mL/min/1.73m2 0168653246) CARLEY (test code = CARLEY) Association of Glomerular Filtration Rate (GFR) and Staging of Kidney Disease* + --+ --+ ------+| GFR (mL/min/1.73 m2) ?| With Kidney Damage ?| ?Without Kidney Damage+ --------+ --------+ +| ?>90 ?| ?Stage one ?| ? Normal ?+ ---+ ---+ -------+| ?60-89 ?| ?Stage two ?| ? Decreased GFR ? + --+ --+ ------+| ?30-59 ?| ?Stage three ?| ? Stage three ? + --+ --+ ------+| ?15-29 ?| ?Stage four ? | ? Stage four ?+ ---+ ---+ -------+| ?<15 (or dialysis) ? ?| ?Stage five ? | ? Stage five ?+ ---+ ---+ -------+ *Each stage assumes the associated GFR level has been in effect for at least three months. ?Stages 1 to 5, with or without kidney disease, indicate chronic kidney disease. Notes: Determination of stages one and two (with eGFR >59mL/min/1.73 m2) requires estimation of kidney damage for at least three months as defined by structural or functional abnormalities of the kidney, manifested by either:Pathological abnormalities or Markers of kidney damage (including abnormalities in the composition of the blood or urine or abnormalities in imaging tests). Lab Interpretation Abnormal (test code = 90113-3) [facility] [id number] 23:02:07 Test Item Value Reference Interpretation Comments Range TROPONIN I (test 0.145 ng/mL See_Comment H [Automated code = 8117177350) message] The system which generated this result transmitted reference range : <=0.034. The reference range was not used to interpret this result as normal/abnormal . CARLEY (test code = Reference (Normal) CARLEY) Range (defined by the 99th percentile reference limit): <= 0.034 ng/mL Note: Cardiac troponin begins to rise 3-4 hours after the onset of ischemia. Repeat in 4-6 hours if the sample was drawn within 3-4 hours of the onset of the symptom and found normal. Diagnosis of myocardial injury is made with acute changes in cTn concentrations with at least one serial sample above the 99th percentile upper reference limit (URL), taken together with the patient's clinical presentation. Biotin has been reported to cause a negative bias, interpret results relative to patient's use of biotin. Lab Interpretation Abnormal (test code = 80182-5) [facility]-09 22:58:44 Test Item Value Reference Range Interpretation Comments POCT GLU (test code = 7698823581) 130 mg/dL 70-110 H Lab Interpretation (test code = Abnormal 05817-2) [facility] GLUCOSE (AUTOMATED)2022-06-09 21:08:23 Test Item Value Reference Range Interpretation Comments POCT GLU (test code = 3658860705) 99 mg/dL 70-110 Lab Interpretation (test code = Normal 78044-1) [facility] GLUCOSE(AGE 0-30DAYS)2022-06-09 21:08:00 Test Item Value Reference Range Interpretation Comments POCT Glu (age 0-30days) (test code = 99 mg/dl 40-110 3343) Lab Interpretation (test code = Normal 27079-8) [facility] 0-30DAYS[facility]2022-06-09 21:08:00 Test Item Value Reference Range Interpretation Comments POCT Glu (age 0-30days) (test code = 99 mg/dl 40-110 3343) Lab Interpretation (test code = Normal 68422-5) [facility] GLUCOSE (AUTOMATED)2022-06-09 20:34:40 Test Item Value Reference Range Interpretation Comments POCT GLU (test code = 7241403043) 66 mg/dL 70-110 L Lab Interpretation (test code = Abnormal 60928-4) [facility] GLUCOSE(AGE >30DAYS)2022-06-09 20:34:00 Test Item Value Reference Range Interpretation Comments POCT Glu (age>30days) (test code = 66 mg/dL 70-110 A 3342) Lab Interpretation (test code = Abnormal 11647-2) [facility] GLUCOSE(AGE >30DAYS)2022-06-09 20:34:00 Test Item Value Reference Range Interpretation Comments POCT Glu (age>30days) (test code = 66 mg/dL 70-110 A 3342) Lab Interpretation (test code = Abnormal 67070-4) [facility] GLUCOSE (AUTOMATED)2022-06-09 20:16:11 Test Item Value Reference Range Interpretation Comments POCT GLU (test code = 0699825380) 46 mg/dL 70-110 LL Lab Interpretation (test code = Abnormal 06928-8) [facility] GLUCOSE(AGE >30DAYS)2022-06-09 20:16:00 Test Item Value Reference Range Interpretation Comments POCT Glu (age>30days) (test code = 46 mg/dL 70-110 A 3342) Lab Interpretation (test code = Abnormal 61754-7) [facility] GLUCOSE (AUTOMATED)2022-06-09 19:29:44 Test Item Value Reference Range Interpretation Comments POCT GLU (test code = 65 mg/dL 70-110 L Notifi ed Provider [id number]) Lab Interpretation (test Abnormal code = 51887-5) [facility] GLUCOSE(AGE >30DAYS)2022-06-09 19:29:00 Test Item Value Reference Range Interpretation Comments POCT Glu (age>30days) (test code = 65 mg/dL 70-110 A 3342) Lab Interpretation (test code = Abnormal 21788-9) [facility] GLUCOSE (AUTOMATED)2022-06-09 18:24:28 Test Item Value Reference Range Interpretation Comments POCT GLU (test code = 4803751997) 100 mg/dL 70-110 Lab Interpretation (test code = Normal 33183-8) [facility] [id number] 17:52:10 Test Item Value Reference Range Interpretation Comments NT-proBNP (test code 116884 pg/mL See_Comment H [Autom ated = 4626815266) message] The system which generated this result transmitted reference range : <=125. The reference range was not used to interpret this result as normal/abnormal . CARLEY (test code = CARLEY) Biotin has been reported to cause a negative bias, interpret results relative to patient's use of biotin. Lab Interpretation Abnormal (test code = 64315-4) [facility] [id number] 17:52:10 Test Item Value Reference Range Interpretation Comments NT-proBNP (test code = 140869 pg/mL <=125 H 6448210627) CARLEY (test code = CARLEY) Biotin has been reported to cause a negative bias, interpret results relative to patient's use of biotin. Lab Interpretation (test Abnormal code = 98594-9) [facility]. METABOLIC PANEL (75096)2022-06-09 17:47:36 Test Item Value Reference Range Interpretation Comments NA (test code = 136 mmol/L 135-145 9773166538) K (test code = 6.3 mmol/L 3.5-5.0 HH 9275884564) CL (test code = 99 mmol/L 98-108 4481353811) CO2 TOTAL (test code = 22 mmol/L 23-31 L 3549151908) AGAP (test code = 2-16 4726804952) BUN (test code = 92 mg/dL 7-23 H 5311244506) GLUCOSE (test code = 89 mg/dL 70-110 9690412606) CREATININE (test code = 13.96 mg/dL 0.60-1.25 H 8537111336) TOTAL BILI (test code = 0.4 mg/dL 0.1-1.7 4137496302) CALCIUM (test code = 8.7 mg/dL 8.6-10.6 8568248410) T PROTEIN (test code = 6.9 g/dL 6.3-8.2 0038940583) ALBUMIN (test code = 3.9 g/dL 3.5-5.0 3839309415) ALK PHOS (test code = 107 U/L 34-122 0910576963) ALTv (test code = 28 U/L 5-50 1742-6) AST(SGOT) (test code = 41 U/L 13-40 H 8190841886) eGFR (test code = mL/min/1.73m2 1658006414) CARLEY (test code = CARLEY) Association of Glomerular Filtration Rate (GFR) and Staging of Kidney Disease* + --+ --+ ------+| GFR (mL/min/1.73 m2) ?| With Kidney Damage ?| ?Without Kidney Damage+ --------+ --------+ +| ?>90 ?| ?Stage one ?| ? Normal ?+ ---+ ---+ -------+| ?60-89 ?| ?Stage two ?| ? Decreased GFR ? + --+ --+ ------+| ?30-59 ?| ?Stage three ?| ? Stage three ? + --+ --+ ------+| ?15-29 ?| ?Stage four ? | ? Stage four ?+ ---+ ---+ -------+| ?<15 (or dialysis) ? ?| ?Stage five ? | ? Stage five ?+ ---+ ---+ -------+ *Each stage assumes the associated GFR level has been in effect for at least three months. ?Stages 1 to 5, with or without kidney disease, indicate chronic kidney disease. Notes: Determination of stages one and two (with eGFR >59mL/min/1.73 m2) requires estimation of kidney damage for at least three months as defined by structural or functional abnormalities of the kidney, manifested by either:Pathological abnormalities or Markers of kidney damage (including abnormalities in the composition of the blood or urine or abnormalities in imaging tests). Lab Interpretation Abnormal (test code = 57179-7) [facility] [id number] 17:38:34 Test Item Value Reference Interpretation Comments Range TROPONIN I (test 0.145 ng/mL See_Comment H [Automated code = 1736312449) message] The system which generated this result transmitted reference range : <=0.034. The reference range was not used to interpret this result as normal/abnormal . CARLEY (test code = Reference (Normal) CARLYE) Range (defined by the 99th percentile reference limit): <= 0.034 ng/mL Note: Cardiac troponin begins to rise 3-4 hours after the onset of ischemia. Repeat in 4-6 hours if the sample was drawn within 3-4 hours of the onset of the symptom and found normal. Diagnosis of myocardial injury is made with acute changes in cTn concentrations with at least one serial sample above the 99th percentile upper reference limit (URL), taken together with the patient's clinical presentation. Biotin has been reported to cause a negative bias, interpret results relative to patient's use of biotin. Lab Interpretation Abnormal (test code = 83659-5) [facility] [id number] 17:13:07 Test Item Value Reference Range Interpretation Comments WBC (test code = See_Comment [Automated 0990-2) message] The sy stem which generated this result transmitted reference range : 4.20 - 10.70 10*3/?L. The reference range was not used to interpret this result as normal/abnormal . RBC (test code = See_Comment L [Automated 069-8) message] The sy stem which generated this result transmitted reference range : 4.26 - 5.52 10*6/?L. The reference range was not used to interpret this result as normal/abnormal . HGB (test code = 7.9 g/dL 12.2-16.4 L 718-7) HCT (test code = 25.1 % 38.4-49.3 L 4544-3) MCV (test code = 91.3 fL 81.7-95.6 787-2) MCH (test code = 28.7 pg 26.1-32.7 785-6) MCHC (test code = 31.5 g/dL 31.2-35.0 786-4) RDW-SD (test code = 47.2 fL 38.5-51.6 66779-7) RDW-CV (test code = 14.4 % 12.1-15.4 788-0) PLT (test code = See_Comment [Automated 777-3) message] The sy stem which generated this result transmitted reference range : 150 - 328 10*3/ ?L. The reference r kevin was not used to interpret this result as normal/abnormal . MPV (test code = 10.1 fL 9.8-13.0 42830-1) NRBC/100 WBC (test See_Comment [Automat ed code = 4067648532) message] The system which generated this result transmitted reference range : 0.0 - 10.0 /100 WBCs. The refer ence range was not u sed to interpret th is result as normal/abnormal . NRBC x10^3 (test code See_Comment [Auto mated = 2457242357) message] The s ystem which generated this result transmitted reference range : 10*3/?L. The reference range was not used to interpret this result as normal/abnormal . GRAN MAT (NEUT) % 79.6 % (test code = 770-8) IMM GRAN % (test code 0.50 % = 0177399522) LYMPH % (test code = 10.6 % 736-9) MONO % (test code = 7.9 % 5905-5) EOS % (test code = 0.8 % 713-8) BASO % (test code = 0.6 % 706-2) GRAN MAT x10^3(ANC) 4.93 10*3/uL 1.99-6.95 (test code = 6519430002) IMM GRAN x10^3 (test 0.03 10*3/uL 0.00-0.06 code = 1864573336) LYMPH x10^3 (test code 0.66 10*3/uL 1.09-3.23 L = 731-0) MONO x10^3 (test code 0.49 10*3/uL 0.36-1.02 = 742-7) EOS x10^3 (test code = 0.05 10*3/uL 0.06-0.53 L 711-2) BASO x10^3 (test code 0.04 10*3/uL 0.01-0.09 = 704-7) Lab Interpretation Abnormal (test code = 87697-0) [facility]ano[facility]/[id number] 06:33:53 Test Item Value Reference Range Interpretation Comments PROTIME (BEAKER) 28.1 seconds 11.9-14.2 H (test code = 759) INR (BEAKER) (test 2.67 See_Comment [Automat ed message] code = 370) The system [employer] generated this result transmitted ref erence range: <=5.90. The reference range was not used to int erpret this result as normal/abnormal . RECOMMENDED COUMADIN/WARFARIN INR THERAPY RANGESSTANDARD DOSE: 2.0 - 3.0 Includes: PROPHYLAXIS for venous thrombosis, systemic embolization; TREATMENT for venous thrombosis and/or pulmonary embolus.HIGH RISK: Target INR is 2.5-3.5 for patients with mechanical heart valves.SARS-COV2/RT-PCR ([facility]) 2021-03-25 03:01:02 Test Item Value Reference Range Interpretation Comments SARS-COV2/RT-PCR (test code = Negative Negative 6777692) Negative result for this test determines that [...] 564(g) of the Act.Testing was performed using [employer] SARS-CoV-2 assay.Fact Sheet for Healthcare Providers:https://www.Med[employer]k.avila/jermaine/RT SARS-CoV-2 HCP Fact Sheet 51- 590467.pdfFact Sheet for Healthcare Patients:https://www.[employer].avila/jermaine/RT SARS-CoV-2 Patient Fact Sheet EN 51-742726C3.pdf[facility] MET[facility]OLIC [id number] 16:24:38 Test Item Value Reference Range Interpretation [...] S NOT APPLICABLE FOR DIALYSIS PATIEN TS. [employer] Mechan[employer] ID - DBCBC (HEMOGRAM ONLY)2021-03-24 16:04:46 Test [...] = 413) RAD, CHEST, 1 VIEW, NON [id number] 15:20:00Reason for exam:->chfShould this be performed at the bedside?->Yes [facility] 1975 Sex: MAddendum BeginsREPORT STATUS:A Addendum: No evidence of active tuberculosis. Signed:Alondra Rezo Taylor Verified Date/Time: 03/24/2021 15:20:26 Reading Location: [facility] C013 Neuro Reading RoomAddendum EndsFINAL REPORT RAD, CHEST, 1 VIEW, NON DEPT INDICATION:chf COMPARISON: Prior day's exam FINDINGS: Portable frontal view of the chest. IMPRESSION: Support Lines: Dialysis catheter tip overlies the atriocaval junction Lungs and pleura: Bilateral airspace opacities concerning for multifocal pneumonia versus multifocal edema. No significant pneumothorax. Heart and mediastinum: Stable contours. Additional findings: None. Signed: AlondraRe vasquez Verified Date/Time: 03/14/2021 07:27:07 Reading Location: [facility] Radiology Reading Room PROTHROMBIN TIME/[id number] 04:54:57 Test Item Value Reference Range Interpretation Comments PROTIME (BEAKER) 27.8 seconds 11.9-14.2 H (test code = 759) INR (BEAKER) (test 2.63 See_Comment [Automat ed message] code = 370) The system [employer] generated this result transmitted ref erence range: <=5.90. The reference range was not used to int erpret this result as normal/abnormal . RECOMMENDED COUMADIN/WARFARIN INR THERAPY RANGESSTANDARD DOSE: 2.0 - 3.0 Includes: PROPHYLAXIS for venous thrombosis, systemic embolization; TREATMENT for venous thrombosis and/or pulmonary embolus.HIGH RISK: Target INR is 2.5-3.5 for patients with mechanical heart valves.PROTHROMBIN TIME/[id number] 05:42:02 Test Item Value Reference Range Interpretation Comments PROTIME (BEAKER) 25.9 seconds 11.9-14.2 H (test code = 759) INR (BEAKER) (test 2.40 See_Comment [Automat ed message] code = 370) The system [employer] generated this result transmitted ref erence range: <=5.90. The reference range was not used to int erpret this result as normal/abnormal . RECOMMENDED COUMADIN/WARFARIN INR THERAPY RANGESSTANDARD DOSE: 2.0 - 3.0 Includes: PROPHYLAXIS for venous thrombosis, systemic embolization; TREATMENT for venous thrombosis and/or pulmonary embolus.HIGH RISK: Target INR is 2.5-3.5 for patients with mechanical heart valves.BASIC METABOLIC [id number] 07:39:53 Test Item Value Reference Range Interpretation [...] S NOT APPLICABLE FOR DIALYSIS PATIEN TS. [employer] Upkeep Mechanic ID - PIAYA LPROTHROMBIN TIME/[id number] 06:23:41 Test Item Value Reference Range Interpretation Comments PROTIME (BEAKER) 26.2 seconds 11.9-14.2 H (test code = 759) INR (BEAKER) (test 2.43 See_Comment [Automat ed message] code = 370) The system [employer] generated this result transmitted ref erence range: <=5.90. The reference range was not used to int erpret this result as normal/abnormal . RECOMMENDED COUMADIN/WARFARIN INR THERAPY RANGESSTANDARD DOSE: 2.0 - 3.0 Includes: PROPHYLAXIS for venous thrombosis, systemic embolization; TREATMENT for venous thrombosis and/or pulmonary embolus.HIGH RISK: Target INR is 2.5-3.5 for patients with mechanical heart valves.CBC W/PLT COUNT & AUTO [id number] 06:03:13 Test Item Value Reference Range Interpretation [...] (BEAKER) (test code = 2801) BASIC METABOLIC [id number] 07:28:56 Test Item Value Reference Range Interpretation [...] S NOT APPLICABLE FOR DIALYSIS PATIEN TS. [employer] Machine Upkeep Mechanic ID - KT GPROTHROMBIN TIME/[id number] 05:52:11 Test Item Value Reference Range Interpretation Comments PROTIME (BEAKER) 25.3 seconds 11.9-14.2 H (test code = 759) INR (BEAKER) (test 2.33 See_Comment [Automat ed message] code = 370) The system [employer] generated this result transmitted ref erence range: <=5.90. The reference range was not used to int erpret this result as normal/abnormal . RECOMMENDED COUMADIN/WARFARIN INR THERAPY RANGESSTANDARD DOSE: 2.0 - 3.0 Includes: PROPHYLAXIS for venous thrombosis, systemic embolization; TREATMENT for venous thrombosis and/or pulmonary embolus.HIGH RISK: Target INR is 2.5-3.5 for patients with mechanical heart valves.CBC W/PLT COUNT & AUTO [id number] 05:43:50 Test Item Value Reference Range Interpretation [...] (BEAKER) (test code = 2801) BASIC METABOLIC [id number] 06:54:24 Test Item Value Reference Range Interpretation [...] S NOT APPLICABLE FOR DIALYSIS PATIEN TS. [employer] Upkeep Mechanic ID - PIRAFY [id number] 06:42:10 Test Item Value Reference Range Interpretation Comments MAGNESIUM (BEAKER) (test code = 2.4 mg/dL 1.6-2.6 627) [employer] Upkeep Mechanic ID - LINA LPROTHROMBIN TIME/[id number] 04:45:47 Test Item Value Reference Range Interpretation Comments PROTIME (BEAKER) 27.8 seconds 11.9-14.2 H (test code = 759) INR (BEAKER) (test 2.62 See_Comment [Automat ed message] code = 370) The system [employer] generated this result transmitted ref erence range: <=5.90. The reference range was not used to int erpret this result as normal/abnormal . RECOMMENDED COUMADIN/WARFARIN INR THERAPY RANGESSTANDARD DOSE: 2.0 - 3.0 Includes: PROPHYLAXIS for venous thrombosis, systemic embolization; TREATMENT for venous thrombosis and/or pulmonary embolus.HIGH RISK: Target INR is 2.5-3.5 for patients with mechanical heart valves.CBC W/PLT COUNT & AUTO [id number] 04:40:30 Test Item Value Reference Range Interpretation [...] (BEAKER) (test code = 2801) BASIC METABOLIC [id number] 06:18:33 Test Item Value Reference Range Interpretation [...] S NOT APPLICABLE FOR DIALYSIS PATIEN TS. Forming Machine Upkeep Mechanic ID - PIRAFY [id number] 06:17:36 Test Item Value Reference Range Interpretation Comments MAGNESIUM (BEAKER) (test code = 2.3 mg/dL 1.6-2.6 627) Forming Machine Upkeep Mechanic ID - LINA LPROTHROMBIN TIME/[id number] 05:08:54 Test Item Value Reference Range Interpretation Comments PROTIME (BEAKER) 25.0 seconds 11.9-14.2 H (test code = 759) INR (BEAKER) (test 2.30 See_Comment [Automat ed message] code = 370) The system [employer] generated this result transmitted ref erence range: <=5.90. The reference range was not used to int erpret this result as normal/abnormal . RECOMMENDED COUMADIN/WARFARIN INR THERAPY RANGESSTANDARD DOSE: 2.0 - 3.0 Includes: PROPHYLAXIS for venous thrombosis, systemic embolization; TREATMENT for venous thrombosis and/or pulmonary embolus.HIGH RISK: Target INR is 2.5-3.5 for patients with mechanical heart valves.CBC W/PLT COUNT & AUTO [id number] 04:44:43 Test Item Value Reference Range Interpretation [...] PERCENT (BEAKER) (test code = 2801) PROTHROMBIN TIME/[id number] 08:29:25 Test Item Value Reference Range Interpretation Comments PROTIME (BEAKER) 21.5 seconds 11.9-14.2 H (test code = 759) INR (BEAKER) (test 1.90 See_Comment [Automat ed message] code = 370) The system [employer] generated this result transmitted ref erence range: <=5.90. The reference range was not used to int erpret this result as normal/abnormal . RECOMMENDED COUMADIN/WARFARIN INR THERAPY RANGESSTANDARD DOSE: 2.0 - 3.0 Includes: PROPHYLAXIS for venous thrombosis, systemic embolization; TREATMENT for venous thrombosis and/or pulmonary embolus.HIGH RISK: Target INR is 2.5-3.5 for patients with mechanical heart valves.BASIC METABOLIC [id number] 08:04:03 Test Item Value Reference Range Interpretation [...] S NOT APPLICABLE FOR DIALYSIS PATIEN TS. Forming Machine Upkeep Mechanic ID - [id number] 07:56:20 Test Item Value Reference Range Interpretation Comments MAGNESIUM (BEAKER) (test code = 2.2 mg/dL 1.6-2.6 627) Forming Machine Upkeep Mechanic ID - DBCBC W/PLT COUNT & AUTO [id number] 06:24:39 Test Item Value Reference Range Interpretation [...] (BEAKER) (test code = 2801) BASIC METABOLIC [id number] 05:13:11 Test Item Value Reference Range Interpretation [...] S NOT APPLICABLE FOR DIALYSIS PATIEN TS. Forming Machine Upkeep Mechanic ID - [id number] 05:12:41 Test Item Value Reference Range Interpretation Comments MAGNESIUM (BEAKER) (test code = 2.0 mg/dL 1.6-2.6 627) Forming Machine Upkeep Mechanic ID - jrlPROTHROMBIN TIME/[id number] 04:43:24 Test Item Value Reference Range Interpretation Comments PROTIME (BEAKER) 19.8 seconds 11.9-14.2 H (test code = 759) INR (BEAKER) (test 1.70 See_Comment [Automat ed message] code = 370) The system [employer] generated this result transmitted ref erence range: <=5.90. The reference range was not used to int erpret this result as normal/abnormal . RECOMMENDED COUMADIN/WARFARIN INR THERAPY RANGESSTANDARD DOSE: 2.0 - 3.0 Includes: PROPHYLAXIS for venous thrombosis, systemic embolization; TREATMENT for venous thrombosis and/or pulmonary embolus.HIGH RISK: Target INR is 2.5-3.5 for patients with mechanical heart valves.CBC W/PLT COUNT & AUTO [id number] 04:35:16 Test Item Value Reference Range Interpretation [...] (BEAKER) (test code = 2801) BASIC METABOLIC [id number] 06:02:17 Test Item Value Reference Range Interpretation [...] S NOT APPLICABLE FOR DIALYSIS PATIEN TS. Forming Machine Upkeep Mechanic ID - LINA [id number] 05:58:16 Test Item Value Reference Range Interpretation Comments PHOSPHORUS (BEAKER) (test code = 3.5 mg/dL 2.3-4.7 604) Forming Machine Upkeep Mechanic ID - LINA [id number] 05:58:15 Test Item Value Reference Range Interpretation Comments MAGNESIUM (BEAKER) (test code = 2.0 mg/dL 1.6-2.6 627) Forming Machine Upkeep Mechanic ID - LINA LCBC W/PLT COUNT & AUTO [id number] 05:27:17 Test Item Value Reference Range Interpretation [...] PERCENT (BEAKER) (test code = 2801) PROTHROMBIN TIME/[id number] 05:24:58 Test Item Value Reference Range Interpretation Comments PROTIME (BEAKER) 19.3 seconds 11.9-14.2 H (test code = 759) INR (BEAKER) (test 1.65 See_Comment [Automat ed message] code = 370) The system [employer] generated this result transmitted ref erence range: <=5.90. The reference range was not used to int erpret this result as normal/abnormal . RECOMMENDED COUMADIN/WARFARIN INR THERAPY RANGESSTANDARD DOSE: 2.0 - 3.0 Includes: PROPHYLAXIS for venous thrombosis, systemic embolization; TREATMENT for venous thrombosis and/or pulmonary embolus.HIGH RISK: Target INR is 2.5-3.5 for patients with mechanical heart valves.CALCIUM, [id number] 05:17:50 Test Item Value Reference Range Interpretation Comments CALCIUM IONIZED (BEAKER) (test 1.18 mmol/L 1.12-1.27 code = 698) PH, BLOOD (BEAKER) (test code = 7.44 1810) BASIC METABOLIC [id number] 04:50:11 Test Item Value Reference Range Interpretation [...] S NOT APPLICABLE FOR DIALYSIS PATIEN TS. Forming Machine Upkeep Mechanic ID - [id number] 04:37:45 Test Item Value Reference Range Interpretation Comments MAGNESIUM (BEAKER) (test code = 2.1 mg/dL 1.6-2.6 627) Forming Machine Upkeep Mechanic ID - jrlPROTHROMBIN TIME/[id number] 04:31:43 Test Item Value Reference Range Interpretation Comments PROTIME (BEAKER) 17.3 seconds 11.9-14.2 H (test code = 759) INR (BEAKER) (test 1.44 See_Comment [Automat ed message] code = 370) The system [employer] generated this result transmitted ref erence range: <=5.90. The reference range was not used to int erpret this result as normal/abnormal . RECOMMENDED COUMADIN/WARFARIN INR THERAPY RANGESSTANDARD DOSE: 2.0 - 3.0 Includes: PROPHYLAXIS for venous thrombosis, systemic embolization; TREATMENT for venous thrombosis and/or pulmonary embolus.HIGH RISK: Target INR is 2.5-3.5 for patients with mechanical heart valves.CBC W/PLT COUNT & AUTO [id number] 04:16:33 Test Item Value Reference Range Interpretation [...] PERCENT (BEAKER) (test code = 2801) PROTHROMBIN TIME/[id number] 07:23:37 Test Item Value Reference Range Interpretation Comments PROTIME (BEAKER) 18.6 seconds 11.9-14.2 H (test code = 759) INR (BEAKER) (test 1.58 See_Comment [Automat ed message] code = 370) The system [employer] generated this result transmitted ref erence range: <=5.90. The reference range was not used to int erpret this result as normal/abnormal . RECOMMENDED COUMADIN/WARFARIN INR THERAPY RANGESSTANDARD DOSE: 2.0 - 3.0 Includes: PROPHYLAXIS for venous thrombosis, systemic embolization; TREATMENT for venous thrombosis and/or pulmonary embolus.HIGH RISK: Target INR is 2.5-3.5 for patients with mechanical heart valves.SARS-COV2/RT-PCR ([facility]) 2021-03-14 05:57:12 Test Item Value Reference Range Interpretation Comments SARS-COV2/RT-PCR (test code = Negative Negative 2228804) Negative result for this test determines that [...] 564(g) of the Act.Testing was performed using [employer] SARS-CoV-2 assay.Fact Sheet for Healthcare Providers:https://www.[employer]/jermaine/RT SARS-CoV-2 HCP Fact Sheet 51- 808747.pdfFact Sheet for Healthcare Patients:https://www.[employer]/jermaine/RT SARS-CoV-2 Patient Fact Sheet EN 51-486504H7.[id number] 02:21:39 Test Item Value Reference Range Interpretation Comments MAGNESIUM (BEAKER) (test code = 1.9 mg/dL 1.6-2.6 627) Forming Machine Upkeep Mechanic ID - VALDEZ MBASIC METABOLIC [id number] 02:14:15 Test Item Value Reference Range Interpretation [...] S NOT APPLICABLE FOR DIALYSIS PATIEN TS. Forming Machine Upkeep Mechanic ID - VALDEZ MHEMOGLOBIN AND [id number] 01:40:58 Test Item Value Reference Range Interpretation Comments HEMOGLOBIN (BEAKER) (test code = 8.2 GM/DL 13.7-17.5 L 410) HEMATOCRIT (BEAKER) (test code = 25.5 % 40.1-51.0 L 411) Forming Machine Upkeep Mechanic ID - [id number], [id number] 23:45:00Unlisted Reason for Exam - Click Yes and Enter Reason Below->NoWill this procedure require oral co ntrast?->[facility] : 1975 Sex: [...] the involuted, multicystic kidneys. Signed: Domingo Duron [facility] Verified Date/Time: 03/13/2021 23:45:08 [id number] 16:59:02 Test Item Value Reference Range Interpretation Comments HAPTOGLOBIN (BEAKER) (test code = 25 mg/dL 14258 366) Forming Machine Upkeep Mechanic ID - [id number] 15:44:30 Test Item Value Reference Range Interpretation Comments FERRITIN (BEAKER) (test code = 1918.52 ng/mL 5.00-275.00 H 361) Forming Machine Upkeep Mechanic ID - DBOperator ID - DBVITAMIN B12 AND [id number] 15:41:58 Test Item Value Reference Range Interpretation Comments VITAMIN B12 (BEAKER) 524 pg/mL 213-816 (test code = 774) FOLATE (BEAKER) 6.10 ng/mL See_Comment L [Automated message] (test code = 362) The system which generated this result transmitted ref erence range: >=7.00. The reference range was not used to interpr et this result as normal/abnormal . Forming Machine Upkeep Mechanic ID - DBOperator ID - DBLACTATE DEHYDROGENASE (LDH)2021-03-13 14:43:19 Test Item Value Reference Range Interpretation Comments LACTATE DEHYDROGENASE 580 U/L 125-220 H Specim en moderately (BEAKER) (test code = hemoly zed 635) Forming Machine Upkeep Mechanic ID - GEMINI VLADIMIRON, TIBC, % SAT. (WITHOUT FERRITIN)2021-03-13 14:39:07 Test Item Value Reference Range Interpretation Comments IRON (BEAKER) (test code = 547) 63.0 ug/dL 40.0-160.0 TOTAL IRON BINDING CAPACITY 155 ug/dL 250-450 L (BEAKER) (test code = 769) IRON % SATURATION (2) (BEAKER) 41 % 20-55 (test code = 2590) Forming Machine Upkeep Mechanic ID - GEMINI FPLASMA FREE [id number] 14:30:24 Test Item Value Reference Range Interpretation Comments HEMOGLOBIN PLASMA (BEAKER) (test 90.0 mg/dl 0.0-30.0 H code = 1054) HEMOGLOBIN AND [id number] 14:23:29 Test Item Value Reference Range Interpretation Comments HEMOGLOBIN (BEAKER) (test code = 8.2 GM/DL 13.7-17.5 L 410) HEMATOCRIT (BEAKER) (test code = 24.8 % 40.1-51.0 L 411) Forming Machine Upkeep Mechanic ID - [id number] [id number] 14:23:27 Test Item Value Reference Range Interpretation Comments RETICULOCYTE COUNT PCT (BEAKER) (test 2.3 % 0.5-1.8 H code = 575) Forming Machine Upkeep Mechanic ID - [id number], CHEST, 1 VIEW, NON [id number] 09:09:00Reason for exam:->chfShould this be performed at the bedside?->Yesafter HD today qt 11 [facility] : 1975 [...] Cantu Verified Date/Time: 03/13/2021 09:09:22 Reading Location: [facility] Radiology Reading Room BASIC METABOLIC [id number] 04:12:57 Test Item Value Reference Range Interpretation [...] S NOT APPLICABLE FOR DIALYSIS PATIEN TS. Forming Machine Upkeep Mechanic ID - KENNETH [id number] 04:09:45 Test Item Value Reference Range Interpretation Comments MAGNESIUM (BEAKER) (test code = 2.3 mg/dL 1.6-2.6 627) Forming Machine Upkeep Mechanic ID - KENNETH WPROTHROMBIN TIME/[id number] 03:56:35 Test Item Value Reference Range Interpretation Comments PROTIME (BEAKER) 19.0 seconds 11.9-14.2 H (test code = 759) INR (BEAKER) (test 1.62 See_Comment [Automat ed message] code = 370) The system [employer] generated this result transmitted ref erence range: <=5.90. The reference range was not used to int erpret this result as normal/abnormal . RECOMMENDED COUMADIN/WARFARIN INR THERAPY RANGESSTANDARD DOSE: 2.0 - 3.0 Includes: PROPHYLAXIS for venous thrombosis, systemic embolization; TREATMENT for venous thrombosis and/or pulmonary embolus.HIGH RISK: Target INR is 2.5-3.5 for patients with mechanical heart valves.CBC W/PLT COUNT & AUTO [id number] 03:46:11 Test Item Value Reference Range Interpretation [...] PERCENT (BEAKER) (test code = 2801) SARS-COV2/RT-PCR ([facility])2021-03-12 10:44:31 Test Item Value Reference Range Interpretation Comments SARS-COV2/RT-PCR (test Negative Not Detected, Negative, code = 1103936) See external report for linked test SARS-COV-2 PERFORMING LAB [facility] (test code = 1041619) Negative result for this test determines that [...] 564(g) of the Act.Fact Sheet for Healthcare Pro viders:https://www.[employer]/sites/default/files/product/documents/Fact_Sheet_H T_Mtxielsyu_Ywcf_LRJW-XlD-2.pdfFact Sheet for Healthcare Patients:https://www.[employer]/sites/default/files/product/docum ents/Mrgx_Fgadf_Hzqegzfe_Bkws_ZTQR-FjV-4.pdfPerforming Laboratory:[facility].[place], [place] [address]NSS, CHEST, 1 VIEW, NON [id number] 08:32:00Reason for exam:->Assess cardiopulmonary statusShould this be performed at the bedside?->Yes [facility] 1975 Sex: MFINAL [...] Allen Verified Date/Time: 03/12/2021 08:32:05 Reading Location: [facility] C013Y CT Body Reading Room BASIC METABOLIC [id number] 07:41:58 Test Item Value Reference Range Interpretation [...] S NOT APPLICABLE FOR DIALYSIS PATIEN TS. Forming Machine Upkeep Mechanic ID - KENNETH WCBC (HEMOGRAM ONLY)2021-03-12 05:39:27 Test Item Value Reference [...] (BEAKER) (test code = 413) BASIC METABOLIC [id number] 04:49:56 Test Item Value Reference Range Interpretation [...] S NOT APPLICABLE FOR DIALYSIS PATIEN TS. Forming Machine Upkeep Mechanic ID - KENNETH NEVES SENSITIVITY TROPONIN [id number] 04:31:11 Test Item Value Reference Range Interpretation Comments HIGH SENSITIVITY 113 pg/ml See_Comment H [Automated message] TROPONIN I (test code The sy stem which = 0758929) generated this result transmitted ref erence range: <=35. Th e reference range was not used to int erpret this result as normal/abnormal . Forming Machine Upkeep Mechanic ID - KENNETH WThe NETWORK ANALYST STAT High Sensitivity Troponin-I results should be used in conjunction with other diagnostic information such as ECG, clinical observations and information, and patient symptoms to aid in the diagnosis of [place].PROTHROMBIN TIME/[id number] 04:20:43 Test Item Value Reference Range Interpretation [...] for patients with mechanical heart valves.BASIC METABOLIC [id number] 21:53:20 Test Item Value Reference Range Interpretation [...] S NOT APPLICABLE FOR DIALYSIS PATIEN TS. Forming Machine Upkeep Mechanic ID - [id number] 21:52:49 Test Item Value Reference Range Interpretation Comments PHOSPHORUS (BEAKER) (test code = 3.7 mg/dL 2.3-4.7 604) Forming Machine Upkeep Mechanic ID - DBCBC W/PLT COUNT & AUTO [id number] 21:37:55 Test Item Value Reference Range Interpretation [...] 0-100 H (BEAKER) (test code = 700) Forming Machine Upkeep Mechanic ID - KT GRAD, CHEST, 1 VIEW, NON [id number] 19:27:00Reason for exam:->[facility] : 1975 Sex: MFINAL [...] Domingo Duron [facility] Verified Date/Time: 03/11/2021 19:27:48 -[id number] 19:26:03 Test Item Value Reference Range Interpretation Comments POC-GLUCOSE ([facility]) 101 mg/dL 70-110 : TESTE D AT [place] [address] (test code = 1855) [facility], [address]: Forming Machine Upkeep Mechanic/Techni won ID = [id number] for MARF [place], LU[place] ELIN-[id number] 19:26:01 Test Item Value Reference Range Interpretation Comments POC-HEMATOCRIT 27 % 40-50 L : Forming Machine Upkeep Mechanic/Te chnician ID = ([facility]) (test code = 117898 for MARFIL, LUCA 1857) NOEN-[id number] 19:25:59 Test Item Value Reference Range Interpretation Comments POC-HEMOGLOBIN 9.2 g/dL 13.0-16.8 L : TESTED AT [place] [address] ([facility]) (test code = [facility], 1856) [address]: Forming Machine Upkeep Mechanic/Techni won ID = [id number] for MARF [place], [place] LLFI-[id number] 19:25:57 Test Item Value Reference Range Interpretation Comments POC-POTASSIUM 4.1 meq/L 3.6-5.5 : TESTED AT [place] [address] ([facility]) (test code [facility], = 1540) [address]: Forming Machine Upkeep Mechanic/Techni won ID = [id number] for MARF [place], [place] MRUN-[id number] 19:25:55 Test Item Value Reference Range Interpretation Comments POC-SODIUM ([facility]) 140 meq/L 135-148 : TESTED AT [place] [address] (test code = 1542) [facility], [address]: Forming Machine Upkeep Mechanic/Techni won ID = [id number] for MARF [place], [place] POCT-BLOOD GASES, [id number] 19:25:53 Test Item Value Reference Range Interpretation [...] 5.0 meq/L -2.0-3.0 H : TESTED AT [facility] [address] [facility], (BEAKER) (test code [address]: = 1841) Forming Machine Upkeep Mechanic/Techni won ID = [id number] for KENN HERNANDEZ EDDIE PROTHROMBIN TIME/[id number] 05:38:58 Test Item Value Reference Range Interpretation Comments PROTIME (BEAKER) 22.0 seconds 11.9-14.2 H (test code = 759) INR (BEAKER) (test 1.95 See_Comment [Automat ed message] code = 370) The system [employer] generated this result transmitted ref erence range: <=5.90. The reference range was not used to int erpret this result as normal/abnormal . RECOMMENDED COUMADIN/WARFARIN INR THERAPY RANGESSTANDARD DOSE: 2.0 - 3.0 Includes: PROPHYLAXIS for venous thrombosis, systemic embolization; TREATMENT for venous thrombosis and/or pulmonary embolus.HIGH RISK: Target INR is 2.5-3.5 for patients with mechanical heart valves.BASIC METABOLIC [id number] 07:13:10 Test Item Value Reference Range Interpretation Comments SODIUM (BEAKER) 137 meq/L 136-145 (test code = 381) POTASSIUM (BEAKER) 4.5 meq/L 3.5-5.1 (test code = 379) CHLORIDE (BEAKER) 102 meq/L 98-107 (test code = 382) CO2 (BEAKER) (test 26 meq/L - code = 355) BLOOD UREA NITROGEN 50 [...] S NOT APPLICABLE FOR DIALYSIS PATIEN TS. Forming Machine Upkeep Mechanic ID - [id number] 07:11:21 Test Item Value Reference Range Interpretation Comments PHOSPHORUS (BEAKER) (test code = 5.0 mg/dL 2.3-4.7 H 604) Forming Machine Upkeep Mechanic ID - ADMINPROTHROMBIN TIME/[id number] 06:33:50 Test Item Value Reference Range Interpretation Comments PROTIME (BEAKER) 33.3 seconds 11.9-14.2 H (test code = 759) INR (BEAKER) (test 3.30 See_Comment [Automat ed message] code = 370) The system [employer] generated this result transmitted ref erence range: <=5.90. The reference range was not used to int erpret this result as normal/abnormal . RECOMMENDED COUMADIN/WARFARIN INR THERAPY RANGESSTANDARD DOSE: 2.0 - 3.0 Includes: PROPHYLAXIS for venous thrombosis, systemic embolization; TREATMENT for venous thrombosis and/or pulmonary embolus.HIGH RISK: Target INR is 2.5-3.5 for patients with mechanical heart valves.BASIC METABOLIC [id number] 08:17:53 Test Item Value Reference Range Interpretation Comments SODIUM (BEAKER) 137 meq/L 136-145 (test code = 381) POTASSIUM (BEAKER) 4.0 meq/L 3.5-5.1 (test code = 379) CHLORIDE (BEAKER) 103 meq/L 98-107 (test code = 382) CO2 (BEAKER) (test 25 meq/L -29 code = 355) BLOOD UREA NITROGEN 38 [...] S NOT APPLICABLE FOR DIALYSIS PATIEN TS. Forming Machine Upkeep Mechanic ID - ADMINPROTHROMBIN TIME/[id number] 06:12:32 Test Item Value Reference Range Interpretation Comments PROTIME (BEAKER) 35.0 seconds 11.9-14.2 H (test code = 759) INR (BEAKER) (test 3.52 See_Comment [Automat ed message] code = 370) The system [employer] generated this result transmitted ref erence range: <=5.90. The reference range was not used to int erpret this result as normal/abnormal . RECOMMENDED COUMADIN/WARFARIN INR THERAPY RANGESSTANDARD DOSE: 2.0 - 3.0 Includes: PROPHYLAXIS for venous thrombosis, systemic embolization; TREATMENT for venous thrombosis and/or pulmonary embolus.HIGH RISK: Target INR is 2.5-3.5 for patients with mechanical heart valves.CBC W/PLT COUNT & AUTO [id number] 06:09:25 Test Item Value Reference Range Interpretation [...] (BEAKER) (test code = 2801) HEMOGLOBIN AND [id number] 08:45:35 Test Item Value Reference Range Interpretation Comments HEMOGLOBIN (BEAKER) (test code = 6.7 GM/DL 13.7-17.5 L 410) HEMATOCRIT (BEAKER) (test code = 21.5 % 40.1-51.0 L 411) Forming Machine Upkeep Mechanic ID - [id number] METABOLIC [id number] 07:38:51 Test Item Value Reference Range Interpretation [...] S NOT APPLICABLE FOR DIALYSIS PATIEN TS. Forming Machine Upkeep Mechanic ID - GEMINI FPROTHROMBIN TIME/[id number] 07:17:17 Test Item Value Reference Range Interpretation Comments PROTIME (BEAKER) 38.7 seconds 11.9-14.2 H (test code = 759) INR (BEAKER) (test 4.00 See_Comment [Automat ed message] code = 370) The system [employer] generated this result transmitted ref erence range: <=5.90. The reference range was not used to int erpret this result as normal/abnormal . RECOMMENDED COUMADIN/WARFARIN INR THERAPY RANGESSTANDARD DOSE: 2.0 - 3.0 Includes: PROPHYLAXIS for venous thrombosis, systemic embolization; TREATMENT for venous thrombosis and/or pulmonary embolus.HIGH RISK: Target INR is 2.5-3.5 for patients with mechanical heart valves.CBC W/PLT COUNT & AUTO [id number] 07:01:38 Test Item Value Reference Range Interpretation [...] PERCENT (BEAKER) (test code = 2801) PROTHROMBIN TIME/[id number] 06:57:22 Test Item Value Reference Range Interpretation Comments PROTIME (BEAKER) 39.4 seconds 11.9-14.2 H (test code = 759) INR (BEAKER) (test 4.08 See_Comment [Automat ed message] code = 370) The system [employer] generated this result transmitted ref erence range: <=5.90. The reference range was not used to int erpret this result as normal/abnormal . RECOMMENDED COUMADIN/WARFARIN INR THERAPY RANGESSTANDARD DOSE: 2.0 - 3.0 Includes: PROPHYLAXIS for venous thrombosis, systemic embolization; TREATMENT for venous thrombosis and/or pulmonary embolus.HIGH RISK: Target INR is 2.5-3.5 for patients with mechanical heart valves.PROTHROMBIN TIME/[id number] 05:52:25 Test Item Value Reference Range Interpretation Comments PROTIME (BEAKER) 36.7 seconds 11.9-14.2 H (test code = 759) INR (BEAKER) (test 3.74 See_Comment [Automat ed message] code = 370) The system [employer] generated this result transmitted ref erence range: <=5.90. The reference range was not used to int erpret this result as normal/abnormal . RECOMMENDED COUMADIN/WARFARIN INR THERAPY RANGESSTANDARD DOSE: 2.0 - 3.0 Includes: PROPHYLAXIS for venous thrombosis, systemic embolization; TREATMENT for venous thrombosis and/or pulmonary embolus.HIGH RISK: Target INR is 2.5-3.5 for patients with mechanical heart valves.BASIC METABOLIC [id number] 05:13:18 Test Item Value Reference Range Interpretation [...] S NOT APPLICABLE FOR DIALYSIS PATIEN TS. Forming Machine Upkeep Mechanic ID - VALDEZ MCBC W/PLT COUNT & AUTO [id number] 05:00:45 Test Item Value Reference Range Interpretation [...] PERCENT (BEAKER) (test code = 2801) PROTHROMBIN TIME/[id number] 04:50:41 Test Item Value Reference Range Interpretation Comments PROTIME (BEAKER) 32.7 seconds 11.9-14.2 H (test code = 759) INR (BEAKER) (test 3.23 See_Comment [Automat ed message] code = 370) The system [employer] generated this result transmitted ref erence range: <=5.90. The reference range was not used to int erpret this result as normal/abnormal . RECOMMENDED COUMADIN/WARFARIN INR THERAPY RANGESSTANDARD DOSE: 2.0 - 3.0 Includes: PROPHYLAXIS for venous thrombosis, systemic embolization; TREATMENT for venous thrombosis and/or pulmonary embolus.HIGH RISK: Target INR is 2.5-3.5 for patients with mechanical heart valves.HEPATITIS B [id number] 07:32:34 Test Item Value Reference Range Interpretation Comments HEPATITIS B CORE TOTAL ANTIBODY Nonreactive Nonreactive (BEAKER) (test code = 497) HEPATITIS B SURFACE ANTIBODY 2822.9 mIU/mL <8.0 H (BEAKER) (test code = 647) HEPATITIS B SURFACE ANTIGEN (2) Nonreactive Nonreactive (BEAKER) (test code = 2585) Forming Machine Upkeep Mechanic ID - EMERSONOperator ID - EMERSONBASIC METABOLIC [id number] 06:32:52 Test Item Value Reference Range Interpretation [...] S NOT APPLICABLE FOR DIALYSIS PATIEN TS. Forming Machine Upkeep Mechanic ID - JRLPROTHROMBIN TIME/[id number] 05:58:24 Test Item Value Reference Range Interpretation Comments PROTIME (BEAKER) 32.5 seconds 11.9-14.2 H (test code = 759) INR (BEAKER) (test 3.20 See_Comment [Automat ed message] code = 370) The system [employer] generated this result transmitted ref erence range: <=5.90. The reference range was not used to int erpret this result as normal/abnormal . RECOMMENDED COUMADIN/WARFARIN INR THERAPY RANGESSTANDARD DOSE: 2.0 - 3.0 Includes: PROPHYLAXIS for venous thrombosis, systemic embolization; TREATMENT for venous thrombosis and/or pulmonary embolus.HIGH RISK: Target INR is 2.5-3.5 for patients with mechanical heart valves.CBC W/PLT COUNT & AUTO [id number] 05:52:02 Test Item Value Reference Range Interpretation [...] (BEAKER) (test code = 2801) BASIC METABOLIC [id number] 08:24:48 Test Item Value Reference Range Interpretation [...] S NOT APPLICABLE FOR DIALYSIS PATIEN TS. Forming Machine Upkeep Mechanic ID - PIAYA LPROTHROMBIN TIME/[id number] 07:16:29 Test Item Value Reference Range Interpretation Comments PROTIME (BEAKER) 28.4 seconds 11.9-14.2 H (test code = 759) INR (BEAKER) (test 2.70 See_Comment [Automat ed message] code = 370) The system [employer] generated this result transmitted ref erence range: <=5.90. The reference range was not used to int erpret this result as normal/abnormal . RECOMMENDED COUMADIN/WARFARIN INR THERAPY RANGESSTANDARD DOSE: 2.0 - 3.0 Includes: PROPHYLAXIS for venous thrombosis, systemic embolization; TREATMENT for venous thrombosis and/or pulmonary embolus.HIGH RISK: Target INR is 2.5-3.5 for patients with mechanical heart valves.CBC W/PLT COUNT & AUTO [id number] 07:11:58 Test Item Value Reference Range Interpretation [...] PERCENT (BEAKER) (test code = 2801) SARS-COV2/RT-PCR ([facility])2021-03-01 11:26:13 Test Item Value Reference Range Interpretation Comments SARS-COV2/RT-PCR (test Negative Not Detected, Negative, code = 4845259) See external report for linked test SARS-COV-2 PERFORMING LAB [facility] (test code = 0127467) Negative result for this test determines that [...] of the Act.Fact Sheet for Healthcare Prov iders:https://www.SnowBall/sites/default/files/product/documents/Fact_Sheet_HC _Fcgwiskph_Pjbc_OBIB-JcN-4.pdfFact Sheet for Healthcare Patients:https://www.[employer]/sites/default/files/product/docume nts/Ldqc_Nbixr_Armolnah_Gtby_FRQG-QzC-4.pdfPerforming Laboratory:[address] [address]KRFLAVAAGDJ TIME/INR 2021-03-01 04:16:38 Test Item Value Reference Range Interpretation Comments PROTIME (BEAKER) 25.5 seconds 11.9-14.2 H (test code = 759) INR (BEAKER) (test 2.35 See_Comment [Automat ed message] code = 370) The system [employer] generated this result transmitted ref erence range: <=5.90. The reference range was not used to int erpret this result as normal/abnormal . RECOMMENDED COUMADIN/WARFARIN INR THERAPY RANGESSTANDARD DOSE: 2.0 - 3.0 Includes: PROPHYLAXIS for venous thrombosis, systemic embolization; TREATMENT for venous thrombosis and/or pulmonary embolus.HIGH RISK: Target INR is 2.5-3.5 for patients with mechanical heart valves.CBC W/PLT COUNT & AUTO [id number] 04:10:26 Test Item Value Reference Range Interpretation [...] PERCENT (BEAKER) (test code = 2801) PROTHROMBIN TIME/[id number] 04:21:23 Test Item Value Reference Range Interpretation [...] mechanical heart valves.CBC W/PLT COUNT & AUTO [id number] 04:09:33 Test Item Value Reference Range Interpretation [...] (BEAKER) (test code = 2801) BASIC METABOLIC [id number] 05:21:01 Test Item Value Reference Range Interpretation [...] S NOT APPLICABLE FOR DIALYSIS PATIEN TS. Forming Machine Upkeep Mechanic ID - KT GCBC (HEMOGRAM ONLY)2021-02-27 05:14:08 [...] 0-100 H (BEAKER) (test code = 700) Forming Machine Upkeep Mechanic ID - ADMINPROTHROMBIN TIME/[id number] 04:56:59 Test Item Value Reference Range Interpretation Comments PROTIME (BEAKER) 22.7 seconds 11.9-14.2 H (test code = 759) INR (BEAKER) (test 2.03 See_Comment [Automat ed message] code = 370) The system [employer] generated this result transmitted ref erence range: <=5.90. The reference range was not used to int erpret this result as normal/abnormal . RECOMMENDED COUMADIN/WARFARIN INR THERAPY RANGESSTANDARD DOSE: 2.0 - 3.0 Includes: PROPHYLAXIS for venous thrombosis, systemic embolization; TREATMENT for venous thrombosis and/or pulmonary embolus.HIGH RISK: Target INR is 2.5-3.5 for patients with mechanical heart valves.PROTHROMBIN TIME/[id number] 15:31:42 Test Item Value Reference Range Interpretation Comments PROTIME (BEAKER) 23.5 seconds 11.9-14.2 H (test code = 759) INR (BEAKER) (test 2.12 See_Comment [Automat ed message] code = 370) The system [employer] generated this result transmitted ref erence range: <=5.90. The reference range was not used to int erpret this result as normal/abnormal . RECOMMENDED COUMADIN/WARFARIN INR THERAPY RANGESSTANDARD DOSE: 2.0 - 3.0 Includes: PROPHYLAXIS for venous thrombosis, systemic embolization; TREATMENT for venous thrombosis and/or pulmonary embolus.HIGH RISK: Target INR is 2.5-3.5 for patients with mechanical heart valves.BLOOD GAS, [id number] 05:16:22 Test Item Value Reference Range Interpretation [...] (test code = 1819) 50.0 COMPREHENSIVE METABOLIC [id number] 23:42:13 Test Item Value Reference Range Interpretation [...] S NOT APPLICABLE FOR DIALYSIS PATIEN TS. Forming Machine Upkeep Mechanic ID - DBHIGH SENSITIVITY TROPONIN [id number] 23:38:42 Test Item Value Reference Range Interpretation Comments HIGH SENSITIVITY 128 pg/ml See_Comment H [Automated message] TROPONIN I (test code The sy stem which = [id number]) generated this result transmitted ref erence range: <=35. Th e reference range was not used to int erpret this result as normal/abnormal . Forming Machine Upkeep Mechanic ID - DBThe NETWORK ANALYST STAT High Sensitivity Troponin-I results should be used in conjunctionwith other diagnostic information such as ECG, clinical observations and information, and patient symptoms to aid in the diagnosis of LA.LACTIC ACID, [id number] 23:28:44 Test Item Value Reference Range Interpretation Comments LACTATE BLOOD VENOUS 0.82 mmol/L 0.50-2.20 Specime n slightly (2) (BEAKER) (test hemolyzed code = 2872) Forming Machine Upkeep Mechanic ID - DBCBC W/PLT COUNT & AUTO [id number] 23:13:06 Test Item Value Reference Range Interpretation [...] = 2801) RAD, CHEST, 1 VIEW, NON [id number] 23:11:00Reason for exam:- >hypoxiaShould this be performed at the bedside?->Yes [facility] 1975 Sex: MFINAL [...] signedby: KELSIE BRIONES M.D. on 02/25/2021 11:11 [id number] 22:36:53 Test Item Value Reference Range Interpretation Comments POC-GLUCOSE ([facility]) 96 mg/dL 70-110 : TESTE D AT [place] [address] (test code = 1855) [place], [address]: Forming Machine Upkeep Mechanic/Technreena upton ID = [id number] for JESUS MANUEL SAENZ [id number] 22:36:52 Test Item Value Reference Range Interpretation Comments POC-HEMATOCRIT 25 % 40-50 L : Forming Machine Upkeep Mechanic/Te chzabrinaian ID = ([facility]) (test code = 759582 for JESUS MANUEL ZAYAS 185) [id number] 22:36:51 Test Item Value Reference Range Interpretation Comments POC-HEMOGLOBIN 8.5 g/dL 13.0-16.8 L : TESTED AT [place] [address] ([facility]) (test code = [place], [address]) [address]: Forming Machine Upkeep Mechanic/Techni won ID = [id number] for RUMB AOA, JESUS MANUEL [id number] 22:36:50 Test Item Value Reference Range Interpretation Comments POC-SODIUM (BEAKER) 135 meq/L 135-148 : TESTED AT [facility] 67[address] (test code = 1542) SHANNA Lott [facility] [place], [address]: Forming Machine Upkeep Mechanic/Techni won ID = [id number] for RUMB AOA, JESUS MANUEL [id number] 22:36:50 Test Item Value Reference Range Interpretation Comments POC-POTASSIUM 4.2 meq/L 3.6-5.5 : TESTED AT [facility] 67 (BEAKER) (test code [facility], = 1540) [address]: Forming Machine Upkeep Mechanic/Techni won ID = [id number] for RUMB AOA, JESUS MANUEL POCT-BLOOD GASES, [id number] 22:36:49 Test Item Value Reference Range Interpretation [...] EXCESS, 1.0 meq/L -2.0-3.0 : TESTED AT [facility] [address] ARTERIAL-POC [facility], (BEAKER) (test code [address]: = 1841) Forming Machine Upkeep Mechanic/Techni won ID = [id number] for RUMB AOA, JESUS MANUEL CBC W/PLT COUNT & AUTO [id number] 07:09:54 Test Item Value Reference Range Interpretation [...] (BEAKER) (test code = 2801) BASIC METABOLIC [id number] 06:39:44 Test Item Value Reference Range Interpretation [...] S NOT APPLICABLE FOR DIALYSIS PATIEN TS. Forming Machine Upkeep Mechanic ID - KT GCALCIUM, [id number] 06:23:23 Test Item Value Reference Range Interpretation Comments CALCIUM IONIZED (BEAKER) (test 1.14 mmol/L 1.12-1.27 code = 698) PH, BLOOD (BEAKER) (test code = 7.40 1810) [id number] 06:05:48 Test Item Value Reference Range Interpretation Comments PHOSPHORUS (BEAKER) (test code = 4.7 mg/dL 2.3-4.7 604) Forming Machine Upkeep Mechanic ID - KT [id number] 06:05:46 Test Item Value Reference Range Interpretation Comments MAGNESIUM (BEAKER) (test code = 2.1 mg/dL 1.6-2.6 627) Forming Machine Upkeep Mechanic ID - KT GPROTHROMBIN TIME/[id number] 05:51:22 Test Item Value Reference Range Interpretation Comments PROTIME (BEAKER) 21.2 seconds 11.9-14.2 H (test code = 759) INR (BEAKER) (test 1.86 See_Comment [Automat ed message] code = 370) The system [employer] generated this result transmitted ref erence range: <=5.90. The reference range was not used to int erpret this result as normal/abnormal . RECOMMENDED COUMADIN/WARFARIN INR THERAPY RANGESSTANDARD DOSE: 2.0 - 3.0 Includes: PROPHYLAXIS for venous thrombosis, systemic embolization; TREATMENT for venous thrombosis and/or pulmonary embolus.HIGH RISK: Target INR is 2.5-3.5 for patients with mechanical heart valves.BASIC METABOLIC [id number] 04:44:34 Test Item Value Reference Range Interpretation [...] S NOT APPLICABLE FOR DIALYSIS PATIEN TS. Forming Machine Upkeep Mechanic ID - KT [id number] 04:43:05 Test Item Value Reference Range Interpretation Comments PHOSPHORUS (BEAKER) (test code = 6.2 mg/dL 2.3-4.7 H 604) Forming Machine Upkeep Mechanic ID - TK [id number] 04:43:03 Test Item Value Reference Range Interpretation Comments MAGNESIUM (BEAKER) (test code = 2.2 mg/dL 1.6-2.6 627) Forming Machine Upkeep Mechanic ID - KT GPROTHROMBIN TIME/[id number] 04:31:37 Test Item Value Reference Range Interpretation Comments PROTIME (BEAKER) 24.3 seconds 11.9-14.2 H (test code = 759) INR (BEAKER) (test 2.21 See_Comment [Automat ed message] code = 370) The system [employer] generated this result transmitted ref erence range: <=5.90. The reference range was not used to int erpret this result as normal/abnormal . RECOMMENDED COUMADIN/WARFARIN INR THERAPY RANGESSTANDARD DOSE: 2.0 - 3.0 Includes: PROPHYLAXIS for venous thrombosis, systemic embolization; TREATMENT for venous thrombosis and/or pulmonary embolus.HIGH RISK: Target INR is 2.5-3.5 for patients with mechanical heart valves.CBC W/PLT COUNT & AUTO [id number] 04:30:06 Test Item Value Reference Range Interpretation [...] PERCENT (BEAKER) (test code = 2801) CALCIUM, [id number] 04:16:25 Test Item Value Reference Range Interpretation Comments CALCIUM IONIZED (BEAKER) (test 1.14 mmol/L 1.12-1.27 code = 698) PH, BLOOD (BEAKER) (test code = 7.43 1810) BASIC METABOLIC [id number] 06:34:09 Test Item Value Reference Range Interpretation [...] S NOT APPLICABLE FOR DIALYSIS PATIEN TS. Forming Machine Upkeep Mechanic ID - KT GCBC W/PLT COUNT & AUTO [id number] 06:34:05 Test Item Value Reference Range Interpretation [...] 0-1 PERCENT (BEAKER) (test code = 2801) [id number] 06:25:36 Test Item Value Reference Range Interpretation Comments MAGNESIUM (BEAKER) (test code = 2.0 mg/dL 1.6-2.6 627) Forming Machine Upkeep Mechanic ID - KT [id number] 06:25:36 Test Item Value Reference Range Interpretation Comments PHOSPHORUS (BEAKER) (test code = 5.7 mg/dL 2.3-4.7 H 604) Forming Machine Upkeep Mechanic ID - KT GCALCIUM, [id number] 06:03:49 Test Item Value Reference Range Interpretation Comments CALCIUM IONIZED (BEAKER) (test 1.16 mmol/L 1.12-1.27 code = 698) PH, BLOOD (BEAKER) (test code = 7.37 1810) PROTHROMBIN [id number] 06:02:59 Test Item Value Reference Range Interpretation Comments PROTIME (BEAKER) 29.9 seconds 11.9-14.2 H (test code = 759) INR (BEAKER) (test 2.89 See_Comment [Automat ed message] code = 370) The system [employer] generated this result transmitted ref erence range: <=5.90. The reference range was not used to int erpret this result as normal/abnormal . RECOMMENDED COUMADIN/WARFARIN INR THERAPY RANGESSTANDARD DOSE: 2.0 - 3.0 Includes: PROPHYLAXIS for venous thrombosis, systemic embolization; TREATMENT for venous thrombosis and/or pulmonary embolus.HIGH RISK: Target INR is 2.5-3.5 for patients with mechanical heart valves.HEPATITIS PANEL, [id number] 13:18:27 Test Item Value Reference Range Interpretation Comments HEPATITIS A IGM ANTIBODY (BEAKER) Nonreactive Nonreactive (test code = 498) HEPATITIS B CORE IGM ANTIBODY Nonreactive Nonreactive (BEAKER) (test code = 645) HEPATITIS C ANTIBODY (BEAKER) Nonreactive Nonreactive (test code = 367) HEPATITIS B SURFACE ANTIGEN (2) Nonreactive Nonreactive (BEAKER) (test code = 2585) Forming Machine Upkeep Mechanic ID - VALDEZ MBASIC METABOLIC [id number] 06:25:00 Test Item Value Reference Range Interpretation [...] S NOT APPLICABLE FOR DIALYSIS PATIEN TS. Forming Machine Upkeep Mechanic ID - VALDEZ [id number] 06:02:13 Test Item Value Reference Range Interpretation Comments PHOSPHORUS (BEAKER) 7.5 mg/dL 2.3-4.7 H Specimen slightly (test code = 604) hemolyzed Forming Machine Upkeep Mechanic ID - VALDEZ [id number] 06:02:12 Test Item Value Reference Range Interpretation Comments MAGNESIUM (BEAKER) 2.2 mg/dL 1.6-2.6 Specimen slightly (test code = 627) hemolyzed Forming Machine Upkeep Mechanic ID - VALDEZ MCALCIUM, [id number] 05:35:58 Test Item Value Reference Range Interpretation Comments CALCIUM IONIZED (BEAKER) (test 1.12 mmol/L 1.12-1.27 code = 698) PH, BLOOD (BEAKER) (test code = 7.35 1810) CBC W/PLT COUNT & AUTO [id number] 05:09:10 Test Item Value Reference Range Interpretation [...] PERCENT (BEAKER) (test code = 2801) PROTHROMBIN [id number] 05:08:20 Test Item Value Reference Range Interpretation Comments PROTIME (BEAKER) 32.7 seconds 11.9-14.2 H (test code = 759) INR (BEAKER) (test 3.22 See_Comment [Automat ed message] code = 370) The system [employer] generated this result transmitted ref erence range: <=5.90. The reference range was not used to int erpret this result as normal/abnormal . RECOMMENDED COUMADIN/WARFARIN INR THERAPY RANGESSTANDARD DOSE: 2.0 - 3.0 Includes: PROPHYLAXIS for venous thrombosis, systemic embolization; TREATMENT for venous thrombosis and/or pulmonary embolus.HIGH RISK: Target INR is 2.5-3.5 for patients with mechanical heart valves.PROTHROMBIN TIME/[id number] 05:04:40 Test Item Value Reference Range Interpretation Comments PROTIME (BEAKER) 32.1 seconds 11.9-14.2 H (test code = 759) INR (BEAKER) (test 3.15 See_Comment [Automat ed message] code = 370) The system [employer] generated this result transmitted ref erence range: <=5.90. The reference range was not used to int erpret this result as normal/abnormal . RECOMMENDED COUMADIN/WARFARIN INR THERAPY RANGESSTANDARD DOSE: 2.0 - 3.0 Includes: PROPHYLAXIS for venous thrombosis, systemic embolization; TREATMENT for venous thrombosis and/or pulmonary embolus.HIGH RISK: Target INR is 2.5-3.5 for patients with mechanical heart valves.SARS-COV2/RT-PCR ([facility]) 2021-02-21 20:29:02 Test Item Value Reference Range Interpretation Comments SARS-COV2/RT-PCR (test code = Negative Negative [id number]) Negative result for this test determines that [...] 564(g) of the Act.Testing was performed using [employer] SARS-CoV-2 assay.Fact Sheet for Healthcare Providers:https://www.INDOM/jermaine/RT SARS-CoV-2 HCP Fact Sheet 51- 131079.pdfFact Sheet for Healthcare Patients:https://www.INDOM/jermaine/RT SARS-CoV-2 Patient Fact Sheet EN 51-601546M7.pdfBASIC METABOLIC [id number] 06:13:04 Test Item Value Reference Range Interpretation [...] GFR I S NOT APPLICABLE FOR DIALYSIS EVETTE TS. Forming Machine Upkeep Mechanic ID - [id number] 05:59:30 Test Item Value Reference Range Interpretation Comments PHOSPHORUS (BEAKER) (test code = 5.6 mg/dL 2.3-4.7 H 604) Forming Machine Upkeep Mechanic ID - [id number] 05:59:28 Test Item Value Reference Range Interpretation Comments MAGNESIUM (BEAKER) (test code = 2.0 mg/dL 1.6-2.6 627) Forming Machine Upkeep Mechanic ID - BSCBC W/PLT COUNT & AUTO [id number] 05:39:00 Test Item Value Reference Range Interpretation [...] PERCENT (BEAKER) (test code = 2801) PROTHROMBIN TIME/[id number] 05:38:20 Test Item Value Reference Range Interpretation Comments PROTIME (BEAKER) 37.7 seconds 11.9-14.2 H (test code = 759) INR (BEAKER) (test 3.86 See_Comment [Automat ed message] code = 370) The system [employer] generated this result transmitted ref erence range: <=5.90. The reference range was not used to int erpret this result as normal/abnormal . RECOMMENDED COUMADIN/WARFARIN INR THERAPY RANGESSTANDARD DOSE: 2.0 - 3.0 Includes: PROPHYLAXIS for venous thrombosis, systemic embolization; TREATMENT for venous thrombosis and/or pulmonary embolus.HIGH RISK: Target INR is 2.5-3.5 for patients with mechanical heart valves.PROTHROMBIN TIME/[id number] 05:38:15 Test Item Value Reference Range Interpretation Comments PROTIME (BEAKER) 38.1 seconds 11.9-14.2 H (test code = 759) INR (BEAKER) (test 3.92 See_Comment [Automat ed message] code = 370) The system [employer] generated this result transmitted ref erence range: <=5.90. The reference range was not used to int erpret this result as normal/abnormal . RECOMMENDED COUMADIN/WARFARIN INR THERAPY RANGESSTANDARD DOSE: 2.0 - 3.0 Includes: PROPHYLAXIS for venous thrombosis, systemic embolization; TREATMENT for venous thrombosis and/or pulmonary embolus.HIGH RISK: Target INR is 2.5-3.5 for patients with mechanical heart valves.CALCIUM, [id number] 05:28:08 Test Item Value Reference Range Interpretation Comments CALCIUM IONIZED (BEAKER) (test 1.12 mmol/L 1.12-1.27 code = 698) PH, BLOOD (BEAKER) (test code = 7.41 1810) PERIPHERAL BLOOD SMEAR - PATHOLOGIST [id number] 14:07:25 Test Item Value Reference Range Interpretation Comments PERIPHERAL SMR Normocytic normochromic REVIEW (BEAKER) anemia with mild (test code = 2640) anisopoikilocytosis and polychromasia. Rare schistocytes (0.6 per HPF). WBCs include predominantly mature granulocytes. Platelets are decreased, no clumping/satellitism seen. [id number] Anitabud Zamora, 112 (BEAKER) (test M.D code = 7909) RETICULOCYTE [id number] 11:37:09 Test Item Value Reference Range Interpretation Comments RETICULOCYTE COUNT PCT (BEAKER) (test 3.6 % 0.5-1.8 H code = 575) Forming Machine Upkeep Mechanic ID - 6000CALCIUM, [id number] 08:12:42 Test Item Value Reference Range Interpretation Comments CALCIUM IONIZED (BEAKER) (test 1.12 mmol/L 1.12-1.27 code = 698) PH, BLOOD (BEAKER) (test code = 7.41 1810) CBC W/PLT COUNT & AUTO [id number] 07:49:07 Test Item Value Reference Range Interpretation [...] (BEAKER) (test code = 2801) BASIC METABOLIC [id number] 07:19:01 Test Item Value Reference Range Interpretation [...] S NOT APPLICABLE FOR DIALYSIS PATIEN TS. Forming Machine Upkeep Mechanic ID - VALDEZ [id number] 07:18:50 Test Item Value Reference Range Interpretation Comments PHOSPHORUS (BEAKER) 5.4 mg/dL 2.3-4.7 H Specimen slightly (test code = 604) hemolyzed Forming Machine Upkeep Mechanic ID - VALDEZ [id number] 07:18:49 Test Item Value Reference Range Interpretation Comments MAGNESIUM (BEAKER) 2.0 mg/dL 1.6-2.6 Specimen slightly (test code = 627) hemolyzed Forming Machine Upkeep Mechanic ID - VALDEZ MPROTHROMBIN TIME/[id number] 06:39:12 Test Item Value Reference Range Interpretation Comments PROTIME (BEAKER) 33.7 seconds 11.9-14.2 H (test code = 759) INR (BEAKER) (test 3.35 See_Comment [Automat ed message] code = 370) The system [employer] generated this result transmitted ref erence range: <=5.90. The reference range was not used to int erpret this result as normal/abnormal . RECOMMENDED COUMADIN/WARFARIN INR THERAPY RANGESSTANDARD DOSE: 2.0 - 3.0 Includes: PROPHYLAXIS for venous thrombosis, systemic embolization; TREATMENT for venous thrombosis and/or pulmonary embolus.HIGH RISK: Target INR is 2.5-3.5 for patients with mechanical heart valves.RAD, CHEST, 1 VIEW, NON [id number] 06:01:00Reason for exam:->intubatedShould this be performed at the bedside?->[facility] : 1975 Sex: MFINAL REPORT RAD, CHEST, 1 VIEW, NON DEPT INDICATION: intubated COMPARISON: Prior day's exam FINDINGS: Portable frontal view of the chest. IMPRESSION: Support Lines: Dialysis catheter tip overlies right atrium. Sternotomy wires. Lungs and pleura: Unchanged bilateral airspace opacities concerning for multifocal pneumonia versus multifocal edema. No significant pneumothorax. Heart and mediastinum: Stable contours. Additional findings: None. Signed: Re Cantu Verified Date/Time: 02/19/2021 06:01:44 , CHEST, 1 VIEW, NON [id number] 07:41:00Reason for exam:- >intubatedShould this be performed at the bedside?->Yes [facility] 1975 Sex: [...] 0-100 H (BEAKER) (test code = 700) Forming Machine Upkeep Mechanic ID - DBOperator ID - DBBASIC METABOLIC [id number] 06:26:54 Test Item Value Reference Range Interpretation [...] S NOT APPLICABLE FOR DIALYSIS PATIEN TS. Forming Machine Upkeep Mechanic ID - VALDEZ MPROTHROMBIN TIME/[id number] 06:17:35 Test Item Value Reference Range Interpretation Comments PROTIME (BEAKER) 29.3 seconds 11.9-14.2 H (test code = 759) INR (BEAKER) (test 2.80 See_Comment [Automat ed message] code = 370) The system [employer] generated this result transmitted ref erence range: <=5.90. The reference range was not used to int erpret this result as normal/abnormal . RECOMMENDED COUMADIN/WARFARIN INR THERAPY RANGESSTANDARD DOSE: 2.0 - 3.0 Includes: PROPHYLAXIS for venous thrombosis, systemic embolization; TREATMENT for venous thrombosis and/or pulmonary embolus.HIGH RISK: Target INR is 2.5-3.5 for patients with mechanical heart valves.CBC W/PLT COUNT & AUTO [id number] 06:15:58 Test Item Value Reference Range Interpretation [...] 0-1 PERCENT (BEAKER) (test code = 2801) [id number] 06:10:34 Test Item Value Reference Range Interpretation Comments PHOSPHORUS (BEAKER) (test code = 4.2 mg/dL 2.3-4.7 604) Forming Machine Upkeep Mechanic ID - VALDEZ [id number] 06:10:33 Test Item Value Reference Range Interpretation Comments MAGNESIUM (BEAKER) (test code = 1.9 mg/dL 1.6-2.6 627) Forming Machine Upkeep Mechanic ID - VALDEZ MBLOOD GAS, [id number] 05:54:10 Test Item Value Reference Range Interpretation [...] (BEAKER) (test code = 1819) 21.0 CALCIUM, [id number] 05:53:59 Test Item Value Reference Range Interpretation Comments CALCIUM IONIZED (BEAKER) (test 1.14 mmol/L 1.12-1.27 code = 698) PH, BLOOD (BEAKER) (test code = 7.40 1810) VITAMIN B12 AND [id number] 10:29:00 Test Item Value Reference Range Interpretation Comments VITAMIN B12 (BEAKER) 816 pg/mL 213-816 (test code = 774) FOLATE (BEAKER) 8.40 ng/mL See_Comment [Automated message] (test code = 362) The system which generated this result transmitted ref erence range: >=7.00. The reference range was not used to interpr et this result as normal/abnormal . Forming Machine Upkeep Mechanic ID - [facility] METABOLIC [id number] 08:43:00 Test Item Value Reference Range Interpretation [...] S NOT APPLICABLE FOR DIALYSIS PATIEN TS. Forming Machine Upkeep Mechanic ID - LINA LRAD, CHEST, 1 VIEW, NON [id number] 08:32:00Reason for exam:->intubatedShould this be performed at the bedside?->Yes [facility] : 1975 Sex: MFINAL REPORT Chest AP portable Comparison exam: 02/16/2021 History provided: IntubatedDespite history provided, no ET tube is visualized. Heart size magnified by projection. Dialysis catheter in place. Widespread bilateral airspace disease unchanged. Signed: iRky Boone MDReport Verified Date/Time: 02/17/2021 08:32:52 Reading Location: [facility] Radiology Reading Room MAGNESIUM 2021-02-17 07:55:00 Test Item Value Reference Range Interpretation Comments MAGNESIUM (BEAKER) 2.0 mg/dL 1.6-2.6 Specimen slightly (test code = 627) hemolyzed Forming Machine Upkeep Mechanic ID - PIAYA [id number] 07:55:00 Test Item Value Reference Range Interpretation Comments PHOSPHORUS (BEAKER) 4.7 mg/dL 2.3-4.7 Specimen slightly (test code = 604) hemolyzed Forming Machine Upkeep Mechanic ID - PIAYA LPROTHROMBIN TIME/[id number] 06:54:00 Test Item Value Reference Range Interpretation Comments PROTIME (BEAKER) 29.4 seconds 11.9-14.2 H (test code = 759) INR (BEAKER) (test 2.82 See_Comment [Automat ed message] code = 370) The system [employer] generated this result transmitted ref erence range: <=5.90. The reference range was not used to int erpret this result as normal/abnormal . RECOMMENDED COUMADIN/WARFARIN INR THERAPY RANGESSTANDARD DOSE: 2.0 - 3.0 Includes: PROPHYLAXIS for venous thrombosis, systemic embolization; TREATMENT for venous thrombosis and/or pulmonary embolus.HIGH RISK: Target INR is 2.5-3.5 for patients with mechanical heart valves.CALCIUM, [id number] 06:54:00 Test Item Value Reference Range Interpretation Comments CALCIUM IONIZED (BEAKER) (test 1.16 mmol/L 1.12-1.27 code = 698) PH, BLOOD (BEAKER) (test code = 7.39 1810) CBC W/PLT COUNT & AUTO [id number] 06:53:00 Test Item Value Reference Range Interpretation [...] PERCENT (BEAKER) (test code = 2801) POCT-GLUCOSE [id number] 21:32:00 Test Item Value Reference Range Interpretation Comments POC-GLUCOSE METER 103 mg/dL 70-110 : TESTED A T [facility] 6720 ([place]) (test code = NORM Tenorio [facility], 1538) [address]: Forming Machine Upkeep Mechanic/Techni won ID = [id number] for MARÍA AMAYA POCT-GLUCOSE [id number] 16:27:00 Test Item Value Reference Range Interpretation Comments POC-GLUCOSE METER 101 mg/dL 70-110 : TESTED A T [facility] 6720 ([place]) (test code = NORM Tenorio [facility], 1538) [address]: Forming Machine Upkeep Mechanic/Techni won ID = [id number] for Shaji sneedkristinaalyssa PrestonJanelle RAD, ANKLE, MIN 3 VIEWS, [id number] 13:26:00Reason for exam:->[facility]kle [facility] 1975 Sex: MFINAL REPORT CLINICAL HISTORY: Ankle pain TECHNIQUE: Three views of the left ankle COMPARISON: None IMPRESSION: There is diffuse soft tissue swelling throughout the ankle with an anklejoint effusion. There is no evidence for fracture or dislocation. There is a dorsal calcaneal spur. Signed: Melodie Zarate MDReport Verified Date/Time: 02/16/2021 13:26:52 Reading Location: [facility] Radiology Reading Room POCT-GLUCOSE [id number] 12:24:00 Test Item Value Reference Range Interpretation Comments POC-GLUCOSE METER 97 mg/dL 70-110 : TESTED A T [facility] 6720 ([place]) (test code = NORM Tenorio [facility], 1538) [address]: Forming Machine Upkeep Mechanic/Techni won ID = [id number] for Janelle Powers BASIC METABOLIC [id number] 12:00:00 Test Item Value Reference Range Interpretation [...] S NOT APPLICABLE FOR DIALYSIS PATIEN TS. Forming Machine Upkeep Mechanic ID - GEMINI [id number] 11:52:00 Test Item Value Reference Range Interpretation Comments MAGNESIUM (BEAKER) (test code = 1.8 mg/dL 1.6-2.6 627) Forming Machine Upkeep Mechanic ID - GEMINI [id number] 11:52:00 Test Item Value Reference Range Interpretation Comments PHOSPHORUS (BEAKER) (test code = 4.0 mg/dL 2.3-4.7 604) Forming Machine Upkeep Mechanic ID - GEMINI FRAD, CHEST, 1 VIEW, NON [id number] 10:51:00Reason for exam:->Pulmonary vascular congestion; ESRD on HDShould this be performed at the bedside?->Yes [facility] : 1975 Sex: MFINAL REPORT CLINICAL HISTORY: Pulmonary vascular congestion; ESRD on HD TECHNIQUE: 1 view of the chest. COMPARISON: 02/15/2021 IMPRESSION: The right central line is unchanged. Diffuse bilateral airspace opacities appear slightly decreased. A small left pleural effusion is again noted. The cardiomediastinal silhouette is magnified by technique with sternotomy wires. Signed: Melodie Zarate MDReport Verified Date/Time: 02/16/2021 10:51:39 Reading Location: [facility] Radiology Reading Room POCT-GLUCOSE [id number] 07:52:00 Test Item Value Reference Range Interpretation Comments POC-GLUCOSE METER 100 mg/dL 70-110 : TESTED A T [facility] 6720 (BEAKER) (test code = NORM [place], 1538) [address]: Forming Machine Upkeep Mechanic/Techni won ID = [id number] for Janelle Katz CALCIUM, [id number] 06:46:00 Test Item Value Reference Range Interpretation Comments CALCIUM IONIZED (BEAKER) (test 1.14 mmol/L 1.12-1.27 code = 698) PH, BLOOD (BEAKER) (test code = 7.43 1810) PROTHROMBIN [id number] 06:38:00 Test Item Value Reference Range Interpretation Comments PROTIME (BEAKER) 29.2 seconds 11.9-14.2 H (test code = 759) INR (BEAKER) (test 2.80 See_Comment [Automat ed message] code = 370) The system [employer] generated this result transmitted ref erence range: <=5.90. The reference range was not used to int erpret this result as normal/abnormal . RECOMMENDED COUMADIN/WARFARIN INR THERAPY RANGESSTANDARD DOSE: 2.0 - 3.0 Includes: PROPHYLAXIS for venous thrombosis, systemic embolization; TREATMENT for venous thrombosis and/or pulmonary embolus.HIGH RISK: Target INR is 2.5-3.5 for patients with mechanical heart valves.CBC W/PLT COUNT & AUTO [id number] 06:36:00 Test Item Value Reference Range Interpretation [...] PERCENT (BEAKER) (test code = 2801) PROTHROMBIN [id number] 23:36:00 Test Item Value Reference Range Interpretation Comments PROTIME (BEAKER) 28.8 seconds 11.9-14.2 H (test code = 759) INR (BEAKER) (test 2.74 See_Comment [Automat ed message] code = 370) The system [employer] generated this result transmitted ref erence range: <=5.90. The reference range was not used to int erpret this result as normal/abnormal . RECOMMENDED COUMADIN/WARFARIN INR THERAPY RANGESSTANDARD DOSE: 2.0 - 3.0 Includes: PROPHYLAXIS for venous thrombosis, systemic embolization; TREATMENT for venous thrombosis and/or pulmonary embolus.HIGH RISK: Target INR is 2.5-3.5 for patients with mechanical heart valves.HEMOGLOBIN AND [id number] 23:26:00 Test Item Value Reference Range Interpretation Comments HEMOGLOBIN (BEAKER) (test code = 6.9 GM/DL 13.7-17.5 L 410) HEMATOCRIT (BEAKER) (test code = 21.4 % 40.1-51.0 L 411) Forming Machine Upkeep Mechanic ID - [id number]-GLUCOSE [id number] 12:19:00 Test Item Value Reference Range Interpretation Comments POC-GLUCOSE METER 123 mg/dL 70-110 H : TESTED A T [facility] 6720 (BEAKER) (test code [facility], = 1538) 06[address]: Forming Machine Upkeep Mechanic/Techni won ID = [id number] for Brooksi meena (contract), Syt damien RAD, CHEST, 1 VIEW, NON [id number] 07:27:00Reason for exam:->Pulmonary vascular congestion; ESRD on HDShould this be performed at the bedside?->Yes [facility] : 1975 Sex: MFINAL REPORT CLINICAL HISTORY: Pulmonary vascular congestion; ESRD on HD TECHNIQUE:1 view of the chest. COMPARISON: 02/14/2021 IMPRESSION: The right central line is unchanged. Diffuse bilateral airspace opacities appear slightly increased. Small pleural effusions cannot be excluded. Cardiomegaly is again seen poststernotomy with valvular repair. Signed: Melodie Zarate MDReport VerifiedDate/Time: 02/15/2021 07:27:43 Reading Location: [facility] Radiology Reading Room Electronicallysigned by: MELODIE ZARATE M.D. on 02/15/2021 07:27 AMBASIC METABOLIC [id number] 06:32:00 Test Item Value Reference Range Interpretation [...] S NOT APPLICABLE FOR DIALYSIS PATIEN TS. Forming Machine Upkeep Mechanic ID - LINA [id number] 06:31:00 Test Item Value Reference Range Interpretation Comments MAGNESIUM (BEAKER) (test code = 1.7 mg/dL 1.6-2.6 627) Forming Machine Upkeep Mechanic ID - LINA [id number] 06:31:00 Test Item Value Reference Range Interpretation Comments PHOSPHORUS (BEAKER) (test code = 3.6 mg/dL 2.3-4.7 604) Forming Machine Upkeep Mechanic ID Doretha MILLS LCBC W/PLT COUNT & AUTO [id number] 06:22:00 Test Item Value Reference Range Interpretation [...] PERCENT (BEAKER) (test code = 2801) CALCIUM, [id number] 06:13:00 Test Item Value Reference Range Interpretation Comments CALCIUM IONIZED (BEAKER) (test 1.18 mmol/L 1.12-1.27 code = 698) PH, BLOOD (BEAKER) (test code = 7.41 1810) SARS-COV2/RT-PCR ([facility])2021-02-15 02:44:00 Test Item Value Reference Range Interpretation Comments SARS-COV2/RT-PCR (test code = Negative Negative 4351276) Negative result for this test determines that [...] 564(g) of the Act.Testing was performed using [employer] SARS-CoV-2 assay.Fact Sheet for Healthcare Providers:https://www.[employer]/jermaine/RT SARS-CoV-2 HCP Fact Sheet 51- 702761.pdfFact Sheet for Healthcare Patients:https://www.[employer]/jermaine/RT SARS-CoV-2 Patient Fact Sheet EN 51-873649M4.pdfBASIC METABOLIC [id number] 23:48:00 Test Item Value Reference Range Interpretation [...] S NOT APPLICABLE FOR DIALYSIS PATIEN TS. Forming Machine Upkeep Mechanic ID - PIAYA [id number] 23:39:00 Test Item Value Reference Range Interpretation Comments MAGNESIUM (BEAKER) 2.0 mg/dL 1.6-2.6 Specimen slightly (test code = 627) hemolyzed Forming Machine Upkeep Mechanic ID - LINA [id number] 23:39:00 Test Item Value Reference Range Interpretation Comments PHOSPHORUS (TAMARA) 6.0 mg/dL 2.3-4.7 H Specimen slightly (test code = 604) hemolyzed Forming Machine Upkeep Mechanic ID - LINA LPOCT-GLUCOSE [id number] 18:16:00 Test Item Value Reference Range Interpretation Comments POC-GLUCOSE METER 130 mg/dL 70-110 H : TESTED A T [facility] 6720 ([place]) (test code = NORM [place], 1538) [address]: Forming Machine Upkeep Mechanic/Techni won ID = [id number] for Justus visPaige RAD, CHEST, 1 VIEW, NON [id number] 08:33:00Reason for exam:->Pulmonary vascular congestion; ESRD on HDShould this be performed at the bedside?->Yes [facility] 1975 Sex: MFINAL [...] Castro Verified Date/Time: 02/14/2021 08:33:43 Reading Location: [facility] Diagnostic Imaging Reading Room - [place] [address] HEPATITIS B SURFACE [id number] 07:31:00 Test Item Value Reference Range Interpretation Comments HEPATITIS B SURFACE ANTIGEN (2) Nonreactive Nonreactive (BEAKER) (test code = 2585) Specimen is considered negative for HBsAg.BASIC METABOLIC [id number] 06:29:00 Test Item Value Reference Range Interpretation [...] S NOT APPLICABLE FOR DIALYSIS PATIEN TS. Forming Machine Upkeep Mechanic ID - VALDEZ [id number] 06:12:00 Test Item Value Reference Range Interpretation Comments MAGNESIUM (BEAKER) (test code = 1.9 mg/dL 1.6-2.6 627) Forming Machine Upkeep Mechanic ID - VALDEZ [id number] 06:12:00 Test Item Value Reference Range Interpretation Comments PHOSPHORUS (BEAKER) (test code = 4.1 mg/dL 2.3-4.7 604) Forming Machine Upkeep Mechanic ID - VALDEZ MPROTHROMBIN TIME/[id number] 06:07:00 Test Item Value Reference Range Interpretation Comments PROTIME (BEAKER) 24.0 seconds 11.9-14.2 H (test code = 759) INR (BEAKER) (test 2.17 See_Comment [Automat ed message] code = 370) The system [employer] generated this result transmitted ref erence range: <=5.90. The reference range was not used to int erpret this result as normal/abnormal . RECOMMENDED COUMADIN/WARFARIN INR THERAPY RANGESSTANDARD DOSE: 2.0 - 3.0 Includes: PROPHYLAXIS for venous thrombosis, systemic embolization; TREATMENT for venous thrombosis and/or pulmonary embolus.HIGH RISK: Target INR is 2.5-3.5 for patients with mechanical heart valves.CBC W/PLT COUNT & AUTO [id number] 05:56:00 Test Item Value Reference Range Interpretation [...] (BEAKER) (test code = 2801) BLOOD GAS, [id number] 05:49:00 Test Item Value Reference Range Interpretation [...] (BEAKER) (test code = 1819) 40.0 CALCIUM, [id number] 05:48:00 Test Item Value Reference Range Interpretation Comments CALCIUM IONIZED (BEAKER) (test 1.12 mmol/L 1.12-1.27 code = 698) PH, BLOOD (BEAKER) (test code = 7.41 1810) BASIC METABOLIC [id number] 04:12:00 Test Item Value Reference Range Interpretation [...] S NOT APPLICABLE FOR DIALYSIS PATIEN TS. Forming Machine Upkeep Mechanic ID - VALDEZ MOperator ID - LINA LPROTHROMBIN TIME/[id number] 03:42:00 Test Item Value Reference Range Interpretation Comments PROTIME (BEAKER) 25.4 seconds 11.9-14.2 H (test code = 759) INR (BEAKER) (test 2.34 See_Comment [Automat ed message] code = 370) The system [employer] generated this result transmitted ref erence range: <=5.90. The reference range was not used to int erpret this result as normal/abnormal . RECOMMENDED COUMADIN/WARFARIN INR THERAPY RANGESSTANDARD DOSE: 2.0 - 3.0 Includes: PROPHYLAXIS for venous thrombosis, systemic embolization; TREATMENT for venous thrombosis and/or pulmonary embolus.HIGH RISK: Target INR is 2.5-3.5 for patients with mechanical heart valves.[id number] 03:40:00 Test Item Value Reference Range Interpretation Comments MAGNESIUM (BEAKER) (test code = 2.0 mg/dL 1.6-2.6 627) Forming Machine Upkeep Mechanic ID - LINA [id number] 03:19:00 Test Item Value Reference Range Interpretation Comments PHOSPHORUS (BEAKER) (test code = 7.9 mg/dL 2.3-4.7 H 604) Forming Machine Upkeep Mechanic ID - VALDEZ MCBC W/PLT COUNT & AUTO [id number] 03:06:00 Test Item Value Reference Range Interpretation [...] (BEAKER) (test code = 2801) BLOOD GAS, [id number] 03:01:00 Test Item Value Reference Range Interpretation [...] (BEAKER) (test code = 1819) 100.0 CALCIUM, [id number] 03:01:00 Test Item Value Reference Range Interpretation Comments CALCIUM IONIZED (BEAKER) (test 1.12 mmol/L 1.12-1.27 code = 698) PH, BLOOD (BEAKER) (test code = 7.35 1810) RAD, CHEST, 1 VIEW, NON [id number] 23:28:00Reason for exam:->assess volume statusShould this be performed at the bedside?->Yes [facility] 1975 Sex: MFINAL REPORT RAD, CHEST, 1 VIEW, NON DEPT INDICATION: assess volume status COMPARISON: Prior day's exam FINDINGS: Portable frontal view of the chest. IMPRESSION: Support Lines: Stable. Lungs and pleura: Unchanged moderately extensive bilateral hazy airspace opacities compatible with edema and left pleural effusion. No pneumothorax.Heart and mediastinum: Stable contours.Additional findings: None. Signed: Sharon Krishnan Verified Date/Time: 02/13/2021 23:28:46 RAD, CHEST, 1 VIEW, NON [id number] 23:20:00Reason for exam:->difficulty of breathingShould this be performed at the bedside?->[facility] : 1975 Sex: MFINAL [...] Krishnan Verified Date/Time: 02/13/2021 23:20:13 POCT-BLOOD GASES, [id number] 23:09:00 Test Item Value Reference Range Interpretation Comments TEMP, CELSIUS-POC (BEAKER) (test code = 1834) FIO2-POC (BEAKER) (test code = 1835) PH, ARTERIAL-POC 7.405 7.350-7.450 (BEAKER) (test code = 1836) PCO2, ARTERIAL-POC 37.7 mm Hg 35.0-45.0 If pO2 is >180, pCO2 may (BEAKER) (test code be posit ively biased = 1837) PO2, ARTERIAL-POC 57.0 mm Hg 80.0-90.0 L ([facility]) (test code = 1838) SO2, ARTERIAL-POC 90.0 % 96.0-97.0 L ([facility]) (test code = 1839) HCO3, ARTERIAL-POC 23.6 meq/L 21.0-29.0 ([facility]) (test code = 1840) BASE EXCESS, -1.0 meq/L -2.0-3.0 : TESTED AT [place] [address] ARTERIAL-POC [facility] (test code [address]: = 1841) Forming Machine Upkeep Mechanic/Techni won ID = [id number] for SUBI A, ARGELIA [id number] 23:09:00 Test Item Value Reference Range Interpretation Comments POC-SODIUM ([facility]) 135 meq/L 135-148 : TESTED AT [place] [address] (test code = 1542) [facility], [address]: Forming Machine Upkeep Mechanic/Techni won ID = [id number] for SUBI A, ARGELIA [id number]-[id number] 23:09:00 Test Item Value Reference Range Interpretation Comments POC-POTASSIUM 5.7 meq/L 3.6-5.5 H : TESTED AT [place] [address] ([facility]) (test code [facility], = 1540) [address]: Forming Machine Upkeep Mechanic/Techni won ID = [id number] for SUBI A, ARGELIA [id number] 23:09:00 Test Item Value Reference Range Interpretation Comments POC-HEMOGLOBIN 9.5 g/dL 13.0-16.8 L : TESTED AT [place] [address] ([facility]) (test code = [facility], 185) [address]: Forming Machine Upkeep Mechanic/Techni won ID = [id number] for SUBI A, ARGELIA [id number] 23:09:00 Test Item Value Reference Range Interpretation Comments POC-HEMATOCRIT 28 % 40-50 L : Forming Machine Upkeep Mechanic/Te chzabrinaian ID = ([facility]) (test code = 752474 for JORDAN ARGELIA 185) [id number] 23:09:00 Test Item Value Reference Range Interpretation Comments POC-GLUCOSE ([facility]) 97 mg/dL 70-110 : [facility] D [facility] (test code = 1855) SHANNA Lott [facility] [place], [address]: Forming Machine Upkeep Mechanic/Techni won ID = [id number] for ARGELIA CAMACHO POCT-GLUCOSE [id number] 22:30:00 Test Item Value Reference Range Interpretation Comments POC-GLUCOSE METER 102 mg/dL 70-110 : TESTED A T [facility] 6720 (BEAKER) (test code = NORM Tenorio [facility], 1538) [address]: Forming Machine Upkeep Mechanic/Techni won ID = [id number] for ROSIBEL NNJERAMIE FRED POCT-GLUCOSE [id number] 17:26:00 Test Item Value Reference Range Interpretation Comments POC-GLUCOSE METER 85 mg/dL 70-110 : [facility] (BEAKER) (test code [facility], = 1538) [address]: Forming Machine Upkeep Mechanic/Techni won ID = [id number] for DORIAN SHAHID BASIC METABOLIC [id number] 07:01:00 Test Item Value Reference Range Interpretation [...] S NOT APPLICABLE FOR DIALYSIS PATIEN TS. Forming Machine Upkeep Mechanic ID - KENNETH [id number] 06:57:00 Test Item Value Reference Range Interpretation Comments MAGNESIUM (BEAKER) (test code = 2.0 mg/dL 1.6-2.6 627) Forming Machine Upkeep Mechanic ID - KENNETH [id number] 06:57:00 Test Item Value Reference Range Interpretation Comments PHOSPHORUS (BEAKER) (test code = 6.2 mg/dL 2.3-4.7 H 604) Forming Machine Upkeep Mechanic ID Doretha COOPER WPROTHROMBIN [id number] 06:18:00 Test Item Value Reference Range Interpretation Comments PROTIME (BEAKER) 25.8 seconds 11.9-14.2 H (test code = 759) INR (BEAKER) (test 2.39 See_Comment [Automat ed message] code = 370) The system [employer] generated this result transmitted ref erence range: <=5.90. The reference range was not used to int erpret this result as normal/abnormal . RECOMMENDED COUMADIN/WARFARIN INR THERAPY RANGESSTANDARD DOSE: 2.0 - 3.0 Includes: PROPHYLAXIS for venous thrombosis, systemic embolization; TREATMENT for venous thrombosis and/or pulmonary embolus.HIGH RISK: Target INR is 2.5-3.5 for patients with mechanical heart valves.CALCIUM, [id number] 06:05:00 Test Item Value Reference Range Interpretation Comments CALCIUM IONIZED (BEAKER) (test 1.17 mmol/L 1.12-1.27 code = 698) PH, BLOOD (BEAKER) (test code = 7.39 1810) CBC W/PLT COUNT & AUTO [id number] 05:52:00 Test Item Value Reference Range Interpretation [...] PERCENT (BEAKER) (test code = 2801) POCT-GLUCOSE [id number] 20:40:00 Test Item Value Reference Range Interpretation Comments POC-GLUCOSE METER 94 mg/dL 70-110 : Notified RN/MD: TESTED (BEAKER) (test code = AT [facility] 6720 [facility] 1538) [facility], [address]: Forming Machine Upkeep Mechanic/Techni won ID = [id number] for LORRAINE DAMIANA POCT-GLUCOSE [id number] 18:06:00 Test Item Value Reference Range Interpretation Comments POC-GLUCOSE METER 114 mg/dL 70-110 H : TESTED A Angelica [facility] 67[address] [facility] (test code = NORM Tenorio [facility], 1538) [address]: Forming Machine Upkeep Mechanic/Techni won ID = [id number] for An derson, Kendy HEMOGLOBIN AND [id number] 13:01:00 Test Item Value Reference Range Interpretation Comments HEMOGLOBIN (BEAKER) (test code = 8.7 GM/DL 13.7-17.5 L 410) HEMATOCRIT (BEAKER) (test code = 27.0 % 40.1-51.0 L 411) Forming Machine Upkeep Mechanic ID - [id number]-GLUCOSE [id number] 11:48:00 Test Item Value Reference Range Interpretation Comments POC-GLUCOSE METER 96 mg/dL 70-110 : TESTED A T [facility] 6720 (BEAKER) (test code = [place] [place], 1538) [address]: Forming Machine Upkeep Mechanic/Techni won ID = [id number] for Bent on, Gladys [id number] 10:57:00 Test Item Value Reference Range Interpretation Comments HAPTOGLOBIN (BEAKER) (test code = < mg/dL 14-258 L 366) Forming Machine Upkeep Mechanic ID - AAHAMIDPLASMA FREE [id number] 10:29:00 Test Item Value Reference Range Interpretation Comments HEMOGLOBIN PLASMA (BEAKER) (test 20.0 mg/dl 0.0-30.0 code = 1054) HEPATIC FUNCTION [id number] 10:21:00 Test Item Value Reference Range Interpretation [...] (test code = 42 U/L 6-55 347) Forming Machine Upkeep Mechanic ID - KENNETH WRAD, CHEST, 1 VIEW, NON [id number] 07:07:00Reason for exam:->intubatedShould this be performed at the bedside?->Yes [facility] CROW [facility]UR : 1975 [...] findings: None. Signed: Re Cantueport Verified Date/Time: 02/12/2021 07:07:38 LACTATE DEHYDROGENASE ([facility]) 2021-02-12 06:46:00 Test Item Value Reference Range Interpretation Comments LACTATE DEHYDROGENASE (BEAKER) (test 444 U/L 125-220 H code = 635) Forming Machine Upkeep Mechanic ID - KENNETH ASIC METABOLIC [id number] 05:03:00 Test Item Value Reference Range Interpretation [...] S NOT APPLICABLE FOR DIALYSIS PATIEN TS. Forming Machine Upkeep Mechanic ID - KENNETH [id number] 04:57:00 Test Item Value Reference Range Interpretation Comments MAGNESIUM (BEAKER) (test code = 2.1 mg/dL 1.6-2.6 627) Forming Machine Upkeep Mechanic ID - KENNETH [id number] 04:57:00 Test Item Value Reference Range Interpretation Comments PHOSPHORUS (BEAKER) (test code = 7.1 mg/dL 2.3-4.7 H 604) Forming Machine Upkeep Mechanic ID - KENNETH WCALCIUM, [id number] 04:35:00 Test Item Value Reference Range Interpretation Comments CALCIUM IONIZED (BEAKER) (test 1.09 mmol/L 1.12-1.27 L code = 698) PH, BLOOD (BEAKER) (test code = 7.37 1810) PROTHROMBIN [id number] 04:31:00 Test Item Value Reference Range Interpretation Comments PROTIME (BEAKER) 22.9 seconds 11.9-14.2 H (test code = 759) INR (BEAKER) (test 2.05 See_Comment [Automat ed message] code = 370) The system [employer] generated this result transmitted ref erence range: <=5.90. The reference range was not used to int erpret this result as normal/abnormal . RECOMMENDED COUMADIN/WARFARIN INR THERAPY RANGESSTANDARD DOSE: 2.0 - 3.0 Includes: PROPHYLAXIS for venous thrombosis, systemic embolization; TREATMENT for venous thrombosis and/or pulmonary embolus.HIGH RISK: Target INR is 2.5-3.5 for patients with mechanical heart valves.CBC W/PLT COUNT & AUTO [id number] 04:20:00 Test Item Value Reference Range Interpretation [...] PERCENT (BEAKER) (test code = 2801) POCT-GLUCOSE [id number] 21:06:00 Test Item Value Reference Range Interpretation Comments POC-GLUCOSE METER 108 mg/dL 70-110 : TESTED A T [facility] 6720 (BEAKER) (test code [facility], = 1538) 29218: Forming Machine Upkeep Mechanic/Techni won ID = [id number] for Moni szymanski (contract)Rola LACTATE DEHYDROGENASE (LDH)2021-02-11 10:34:00 Test Item Value Reference Range Interpretation Comments LACTATE DEHYDROGENASE (BEAKER) (test 559 U/L 125-220 H code = 635) Forming Machine Upkeep Mechanic ID - AAHAMIDPOCT-GLUCOSE [id number] 07:41:00 Test Item Value Reference Range Interpretation Comments POC-GLUCOSE METER 86 mg/dL 70-110 : TESTED A T [facility] 6720 (BEAKER) (test code = NORM Tenorio [facility], 1538) 50580: Forming Machine Upkeep Mechanic/Techni won ID = [id number] for COSME NORMAN BASIC METABOLIC [id number] 06:26:00 Test Item Value Reference Range Interpretation [...] S NOT APPLICABLE FOR DIALYSIS PATIEN TS. Forming Machine Upkeep Mechanic ID - [id number] 06:07:00 Test Item Value Reference Range Interpretation Comments MAGNESIUM (BEAKER) (test code = 2.0 mg/dL 1.6-2.6 627) Forming Machine Upkeep Mechanic ID - [id number] 06:07:00 Test Item Value Reference Range Interpretation Comments PHOSPHORUS (BEAKER) (test code = 6.1 mg/dL 2.3-4.7 H 604) Forming Machine Upkeep Mechanic ID - DBRAD, CHEST, 1 VIEW, NON [id number] 05:49:00Reason for exam:- >intubatedShould this be performed at the bedside?->Yes [facility] : 1975 Sex: MFINAL REPORT [...] None. Signed: Re Cantu MDReport Verified Date/Time: 02/11/2021 05:49:15 CBC W/PLT COUNT & AUTO [id number] 05:29:00 Test Item Value Reference Range Interpretation [...] PERCENT (BEAKER) (test code = 2801) POCT-GLUCOSE [id number] 21:00:00 Test Item Value Reference Range Interpretation Comments POC-GLUCOSE METER 137 mg/dL 70-110 H : TESTED A T [facility] 6720 (BEAKER) (test code = N[place], 1538) 82886: Forming Machine Upkeep Mechanic/Techni won ID = [id number] for Manuelito Chavez BASIC METABOLIC [id number] 17:01:00 Test Item Value Reference Range Interpretation [...] S NOT APPLICABLE FOR DIALYSIS PATIEN TS. Forming Machine Upkeep Mechanic ID - [id number] 17:00:00 Test Item Value Reference Range Interpretation Comments POTASSIUM (BEAKER) (test code = 4.2 meq/L 3.5-5.1 379) [id number] 17:00:00 Test Item Value Reference Range Interpretation Comments MAGNESIUM (BEAKER) (test code = 2.0 mg/dL 1.6-2.6 627) Forming Machine Upkeep Mechanic ID - DBLACTATE DEHYDROGENASE (LDH)2021-02-10 17:00:00 Test Item Value Reference Range Interpretation Comments LACTATE DEHYDROGENASE (BEAKER) (test 506 U/L 125-220 H code = 635) Forming Machine Upkeep Mechanic ID - DBCBC W/PLT COUNT & AUTO [id number] 16:38:00 Test Item Value Reference Range Interpretation [...] PERCENT (BEAKER) (test code = 2801) POCT-GLUCOSE [id number] 14:15:00 Test Item Value Reference Range Interpretation Comments POC-GLUCOSE METER 135 mg/dL 70-110 H : TESTED A T [facility] 6720 (BEAKER) (test code = NORM [place] [facility], 1538) 70383: Forming Machine Upkeep Mechanic/Techni won ID = [id number] for Paige Russell [id number] 11:35:00 Test Item Value Reference Range Interpretation Comments PREALBUMIN (BEAKER) (test code = 20 mg/dL 14-69 586) Forming Machine Upkeep Mechanic ID - DBC-REACTIVE [id number] 10:53:00 Test Item Value Reference Range Interpretation Comments C-REACTIVE PROTEIN (BEAKER) (test 2.09 mg/dL 0.00-0.50 H code = 676) Forming Machine Upkeep Mechanic ID - DBRAD, CHEST, 1 VIEW, NON [id number] 07:13:00Reason for exam:- >intubatedShould this be performed at the bedside?->Yes [facility] 1975 Sex: MFINAL REPORT RAD, CHEST, 1 VIEW, NON DEPT INDICATION: intubated COMPARISON: Prior day's exam FINDINGS: Portable frontal view of the chest. IMPRESSION: Support Lines: Stable. Lungs and pleura: Unchanged interstitial, airspace, and pleural opacities. No pneumothorax.Heart and mediastinum: Stable contours. Stable surgical changes.Additional findings: None. Signed: JR Tate Robert MDReport Verified Date/Time: 02/10/2021 07:13:47 Reading Location: [facility] Radiology Reading Room CALCIUM, [id number] 03:42:00 Test Item Value Reference Range Interpretation Comments CALCIUM IONIZED (BEAKER) (test 1.24 mmol/L 1.12-1.27 code = 698) PH, BLOOD (BEAKER) (test code = 7.40 1810) BASIC METABOLIC [id number] 03:33:00 Test Item Value Reference Range Interpretation [...] S NOT APPLICABLE FOR DIALYSIS PATIEN TS. Forming Machine Upkeep Mechanic ID - KENNETH [id number] 03:32:00 Test Item Value Reference Range Interpretation Comments MAGNESIUM (BEAKER) (test code = 2.3 mg/dL 1.6-2.6 627) Forming Machine Upkeep Mechanic ID - KENNETH [id number] 03:32:00 Test Item Value Reference Range Interpretation Comments PHOSPHORUS (BEAKER) (test code = 7.1 mg/dL 2.3-4.7 H 604) Forming Machine Upkeep Mechanic ID - KENNETH MIDDLETONROTHROMBIN TIME/[id number] 03:31:00 Test Item Value Reference Range Interpretation Comments PROTIME (BEAKER) 18.9 seconds 11.9-14.2 H (test code = 759) INR (BEAKER) (test 1.61 See_Comment [Automat ed message] code = 370) The system [employer] generated this result transmitted ref erence range: <=5.90. The reference range was not used to int erpret this result as normal/abnormal . RECOMMENDED COUMADIN/WARFARIN INR THERAPY RANGESSTANDARD DOSE: 2.0 - 3.0 Includes: PROPHYLAXIS for venous thrombosis, systemic embolization; TREATMENT for venous thrombosis and/or pulmonary embolus.HIGH RISK: Target INR is 2.5-3.5 for patients with mechanical heart valves.CBC W/PLT COUNT & AUTO [id number] 03:17:00 Test Item Value Reference Range Interpretation [...] PERCENT (BEAKER) (test code = 2801) POCT-GLUCOSE [id number] 22:04:00 Test Item Value Reference Range Interpretation Comments POC-GLUCOSE METER 125 mg/dL 70-110 H : TESTED A T [facility] 6720 (BEAKER) (test code = [facility], 1538) 69193: Forming Machine Upkeep Mechanic/Techni won ID = [id number] for DO KUSeptember POCT-GLUCOSE [id number] 16:29:00 Test Item Value Reference Range Interpretation Comments POC-GLUCOSE METER 112 mg/dL 70-110 H : TESTED A T [facility] 6720 (BEAKER) (test code = [facility], 1538) 03797: Forming Machine Upkeep Mechanic/Techni won ID = [id number] for MARSHALL BRYANTELLA POCT-GLUCOSE [id number] 11:26:00 Test Item Value Reference Range Interpretation Comments POC-GLUCOSE METER 97 mg/dL 70-110 : TESTED A T [facility] 6720 (BEAKER) (test code = [facility], 1538) 72104: Forming Machine Upkeep Mechanic/Techni won ID = [id number] for DIPESH N, THOMAS POCT-GLUCOSE [id number] 07:49:00 Test Item Value Reference Range Interpretation Comments POC-GLUCOSE METER 82 mg/dL 70-110 : TESTED A T [facility] 6720 (BEAKER) (test code = [facility], 1538) 38444: Forming Machine Upkeep Mechanic/Techni won ID = [id number] for DIPESH N, THOMAS BASIC METABOLIC [id number] 05:07:00 Test Item Value Reference Range Interpretation [...] S NOT APPLICABLE FOR DIALYSIS PATIEN TS. Forming Machine Upkeep Mechanic ID - VALDEZ [id number] 05:01:00 Test Item Value Reference Range Interpretation Comments MAGNESIUM (BEAKER) (test code = 2.2 mg/dL 1.6-2.6 627) Forming Machine Upkeep Mechanic ID - VALDEZ [id number] 05:01:00 Test Item Value Reference Range Interpretation Comments PHOSPHORUS (BEAKER) (test code = 5.4 mg/dL 2.3-4.7 H 604) Forming Machine Upkeep Mechanic ID - VALDEZ MCALCIUM, [id number] 04:47:00 Test Item Value Reference Range Interpretation Comments CALCIUM IONIZED (BEAKER) (test 1.22 mmol/L 1.12-1.27 code = 698) PH, BLOOD (BEAKER) (test code = 7.42 1810) PROTHROMBIN [id number] 04:38:00 Test Item Value Reference Range Interpretation Comments PROTIME (BEAKER) 18.8 seconds 11.9-14.2 H (test code = 759) INR (BEAKER) (test 1.60 See_Comment [Automat ed message] code = 370) The system [employer] generated this result transmitted ref erence range: <=5.90. The reference range was not used to int erpret this result as normal/abnormal . RECOMMENDED COUMADIN/WARFARIN INR THERAPY RANGESSTANDARD DOSE: 2.0 - 3.0 Includes: PROPHYLAXIS for venous thrombosis, systemic embolization; TREATMENT for venous thrombosis and/or pulmonary embolus.HIGH RISK: Target INR is 2.5-3.5 for patients with mechanical heart valves.CBC W/PLT COUNT & AUTO [id number] 04:30:00 Test Item Value Reference Range Interpretation [...] = 2801) RAD, CHEST, 1 VIEW, NON [id number] 04:04:00Reason for exam:- >intubatedShould this be performed at the bedside?->Yes [facility] 1975 Sex: MFINAL REPORT RAD, CHEST, 1 VIEW, NON DEPT INDICATION: intubated COMPARISON: Prior day's exam FINDINGS: Portable frontal view of the chest. IMPRESSION: Support Lines: Stable. Lungs and pleura: Unchanged bilateral airspace and pleural opacities. No pneumothorax.Heart and mediastinum: Stable contours and postsurgical changes.Additional findings: None. Signed: [facility] Verified Date/Time: 02/09/2021 04:04:14 POCT-GLUCOSE [id number] 22:18:00 Test Item Value Reference Range Interpretation Comments POC-GLUCOSE METER 98 mg/dL 70-110 : TESTED A T [facility] 6720 (TAMARA) (test code = [place], 1538) 16346: Forming Machine Upkeep Mechanic/Techni won ID = [id number] for MESERET ETT, SEPTEMBER [id number] 19:37:00 Test Item Value Reference Range Interpretation Comments MAGNESIUM (TAMARA) 1.9 mg/dL 1.6-2.6 Specimen slightly (test code = 627) hemolyzed Forming Machine Upkeep Mechanic ID - BSHEMOGLOBIN AND [id number] 19:16:00 Test Item Value Reference Range Interpretation Comments HEMOGLOBIN (BEAKER) (test code = 8.3 GM/DL 13.7-17.5 L 410) HEMATOCRIT (BEAKER) (test code = 24.9 % 40.1-51.0 L 411) Forming Machine Upkeep Mechanic ID - [id number]-GLUCOSE [id number] 17:27:00 Test Item Value Reference Range Interpretation Comments POC-GLUCOSE METER 82 mg/dL 70-110 : TESTED A T [facility] 6720 (BEAKER) (test code = NORM [place], 1538) 15392: Forming Machine Upkeep Mechanic/Techni won ID = [id number] for RONAL BROCK [id number] 15:52:00 Test Item Value Reference Range Interpretation Comments FERRITIN (BEAKER) (test code = 2985.27 ng/mL 5.00-275.00 H 361) Forming Machine Upkeep Mechanic ID - BSOperator ID - BSIRON, TIBC, % SAT. (WITHOUT FERRITIN)2021-02-08 14:59:00 Test Item Value Reference Range Interpretation Comments IRON (BEAKER) (test code = 547) 68.0 ug/dL 40.0-160.0 TOTAL IRON BINDING CAPACITY 136 ug/dL 250-450 L (BEAKER) (test code = 769) IRON % SATURATION (2) (BEAKER) 50 % 20-55 (test code = 2590) Forming Machine Upkeep Mechanic ID - BSPROTHROMBIN TIME/[id number] 14:45:00 Test Item Value Reference Range Interpretation Comments PROTIME (BEAKER) 19.5 seconds 11.9-14.2 H (test code = 759) INR (BEAKER) (test 1.67 See_Comment [Automat ed message] code = 370) The system [employer] generated this result transmitted ref erence range: <=5.90. The reference range was not used to int erpret this result as normal/abnormal . RECOMMENDED COUMADIN/WARFARIN INR THERAPY RANGESSTANDARD DOSE: 2.0 - 3.0 Includes: PROPHYLAXIS for venous thrombosis, systemic embolization; TREATMENT for venous thrombosis and/or pulmonary embolus.HIGH RISK: Target INR is 2.5-3.5 for patients with mechanical heart valves.POCT-GLUCOSE [id number] 11:26:00 Test Item Value Reference Range Interpretation Comments POC-GLUCOSE METER 112 mg/dL 70-110 H : TESTED A T [facility] 6720 (BEAKER) (test code = NORM [place] [facility], 1538) 91822: Forming Machine Upkeep Mechanic/Techni won ID = [id number] for RONAL PEREZ POCT-GLUCOSE [id number] 07:47:00 Test Item Value Reference Range Interpretation Comments POC-GLUCOSE METER 75 mg/dL 70-110 : TESTED A T [facility] 6720 (TAMARA) (test code = NORM [place] [facility], 1538) 80224: Forming Machine Upkeep Mechanic/Techni won ID = [id number] for RONAL BROCK RAD, CHEST, 1 VIEW, NON [id number] 07:43:00Reason for exam:- >intubatedShould this be performed at the bedside?->Yes [facility] : 1975 Sex: MFINAL REPORT RAD, CHEST, 1 VIEW, NON DEPT INDICATION: intubated COMPARISON: Prior day's exam FINDINGS: Portable frontal view of the chest. IMPRESSION: Support Lines: Stable. Lungs and pleura: Worsening interstitial edema and effusions. No pneumothorax.Heart and mediastinum: Stable contours. Stable surgical changes.Additional findings: None. Signed: JR Tate Robert MDReport Verified Date/Time: 02/08/2021 07:43:26 Reading Location: [facility] Radiology Reading Room BASIC METABOLIC [id number] 04:08:00 Test Item Value Reference Range Interpretation [...] S NOT APPLICABLE FOR DIALYSIS PATIEN TS. Forming Machine Upkeep Mechanic ID - SAROJRAFY [id number] 04:07:00 Test Item Value Reference Range Interpretation Comments MAGNESIUM (BEAKER) (test code = 1.7 mg/dL 1.6-2.6 627) Forming Machine Upkeep Mechanic ID - SAROJRAFY [id number] 04:07:00 Test Item Value Reference Range Interpretation Comments PHOSPHORUS (BEAKER) (test code = 6.1 mg/dL 2.3-4.7 H 604) Forming Machine Upkeep Mechanic ID - LINA LCALCIUM, [id number] 04:02:00 Test Item Value Reference Range Interpretation Comments CALCIUM IONIZED (BEAKER) (test 1.19 mmol/L 1.12-1.27 code = 698) PH, BLOOD (BEAKER) (test code = 7.40 1810) CBC W/PLT COUNT & AUTO [id number] 03:56:00 Test Item Value Reference Range Interpretation [...] PERCENT (BEAKER) (test code = 2801) PROTHROMBIN [id number] 03:52:00 Test Item Value Reference Range Interpretation Comments PROTIME (BEAKER) 19.3 seconds 11.9-14.2 H (test code = 759) INR (BEAKER) (test 1.65 See_Comment [Automat ed message] code = 370) The system [employer] generated this result transmitted ref erence range: <=5.90. The reference range was not used to int erpret this result as normal/abnormal . RECOMMENDED COUMADIN/WARFARIN INR THERAPY RANGESSTANDARD DOSE: 2.0 - 3.0 Includes: PROPHYLAXIS for venous thrombosis, systemic embolization; TREATMENT for venous thrombosis and/or pulmonary embolus.HIGH RISK: Target INR is 2.5-3.5 for patients with mechanical heart valves.POCT-GLUCOSE [id number] 22:32:00 Test Item Value Reference Range Interpretation Comments POC-GLUCOSE METER 93 mg/dL 70-110 : TESTED A T [facility] 6720 (BEAKER) (test code = [facility], 1538) 02696: Forming Machine Upkeep Mechanic/Techni won ID = [id number] for MESERET September POCT-GLUCOSE [id number] 17:21:00 Test Item Value Reference Range Interpretation Comments POC-GLUCOSE METER 81 mg/dL 70-110 : TESTED A T [facility] 6720 (BEAKER) (test code = [facility], 1538) 62032: Forming Machine Upkeep Mechanic/Techni won ID = [id number] for VINOD RONAL HEMOGLOBIN AND [id number] 13:35:00 Test Item Value Reference Range Interpretation Comments HEMOGLOBIN (BEAKER) (test code = 7.1 GM/DL 13.7-17.5 L 410) HEMATOCRIT (BEAKER) (test code = 21.6 % 40.1-51.0 L 411) Forming Machine Upkeep Mechanic ID - 6000POCT-GLUCOSE [id number] 12:35:00 Test Item Value Reference Range Interpretation Comments POC-GLUCOSE METER 90 mg/dL 70-110 : TESTED A T [facility] 6720 (BEAKER) (test code = [facility], 1538) 09085: Forming Machine Upkeep Mechanic/Techni won ID = [id number] for RONAL BROCK CT, BRAIN, WITHOUT [id number] 11:47:00Reason for exam:->lt hemiparesis What is the patient's sedation requirement?->No Sedation [facility] 1975 Sex: MAddendum BeginsREPORT STATUS:A Addendum: Questionable subcentimeter region of infarction within the right inferior frontal lobe (axial image 19), not seen on prior exam. Findings discussed with ordering provider by Dr. Cantu at time of this addendum. Signed: Re Cantu MDReportVerified Date/Time: 02/07/2021 11:47:29 Reading Location: [address] Neuro Reading RoomAddendum EndsFINAL REPORT CT, [...] Cantu Verified Date/Time: 02/07/2021 10:56:22 Reading Location: [address] Neuro Reading Room Electronically signed by: Riaz BORGES 02/07/2021 11:47 AM POCT-GLUCOSE [id number] 07:42:00 Test Item Value Reference Range Interpretation Comments POC-GLUCOSE METER 104 mg/dL 70-110 : TESTED A T [facility] 6720 (DEISIAKER) (test code = [place], 1538) 36135: Forming Machine Upkeep Mechanic/Techni won ID = [id number] for RONAL PEREZ RAD, CHEST, 1 VIEW, NON [id number] 07:24:00Reason for exam:- >intubatedShould this be performed at the bedside?->Yes [facility] 1975 Sex: MFINAL REPORT RAD, CHEST, 1 VIEW, NON DEPT INDICATION: intubated COMPARISON: Prior day's exam FINDINGS: Portable frontal view of the chest. IMPRESSION: Support Lines: Stable. Lungs and pleura: Improved but persistent interstitial edema. No pneumothorax.Heart and mediastinum: Stable contours. Stable surgical changes.Additional findings: None. Signed: JR Tate Robert MDReport Verified Date/Time: 02/07/2021 07:24:30 [facility] CALCIUM, [id number] 05:07:00 Test Item Value Reference Range Interpretation Comments CALCIUM IONIZED (BEAKER) (test 1.17 mmol/L 1.12-1.27 code = 698) PH, BLOOD (BEAKER) (test code = 7.45 1810) BASIC METABOLIC [id number] 03:45:00 Test Item Value Reference Range Interpretation [...] S NOT APPLICABLE FOR DIALYSIS PATIEN TS. Forming Machine Upkeep Mechanic ID - VALDEZ [id number] 03:40:00 Test Item Value Reference Range Interpretation Comments MAGNESIUM (BEAKER) (test code = 1.7 mg/dL 1.6-2.6 627) Forming Machine Upkeep Mechanic ID - VALDEZ [id number] 03:40:00 Test Item Value Reference Range Interpretation Comments PHOSPHORUS (BEAKER) (test code = 4.9 mg/dL 2.3-4.7 H 604) Forming Machine Upkeep Mechanic ID - VALDEZ MPROTHROMBIN TIME/[id number] 03:29:00 Test Item Value Reference Range Interpretation Comments PROTIME (BEAKER) 18.4 seconds 11.9-14.2 H (test code = 759) INR (BEAKER) (test 1.55 See_Comment [Automat ed message] code = 370) The system [employer] generated this result transmitted ref erence range: <=5.90. The reference range was not used to int erpret this result as normal/abnormal . RECOMMENDED COUMADIN/WARFARIN INR THERAPY RANGESSTANDARD DOSE: 2.0 - 3.0 Includes: PROPHYLAXIS for venous thrombosis, systemic embolization; TREATMENT for venous thrombosis and/or pulmonary embolus.HIGH RISK: Target INR is 2.5-3.5 for patients with mechanical heart valves.CBC W/PLT COUNT & AUTO [id number] 03:13:00 Test Item Value Reference Range Interpretation [...] (test code = 2801) FUNGUS CULTURE + [id number] 22:52:00 Test Item Value Reference Range Interpretation Comments CULTURE (BEAKER) (test No fungus isolated in code = 1095) 28 days FUNGUS SMEAR (BEAKER) No fungi seen (test code = 1406) POCT-GLUCOSE [id number] 16:41:00 Test Item Value Reference Range Interpretation Comments POC-GLUCOSE METER 97 mg/dL 70-110 : TESTED A T [facility] 6720 (BEAKER) (test code = [facility], 1538) 94617: Forming Machine Upkeep Mechanic/Techni won ID = [id number] for IVONE ZHAO POCT-GLUCOSE [id number] 11:40:00 Test Item Value Reference Range Interpretation Comments POC-GLUCOSE METER 102 mg/dL 70-110 : TESTED A T [facility] 6720 (BEAKER) (test code = [facility] [employer] [facility], 1538) 01235: Forming Machine Upkeep Mechanic/Techni won ID = [id number] for IVONE RIBEIRO HEPATIC FUNCTION [id number] 08:31:00 Test Item Value Reference Range Interpretation [...] (test code = 37 U/L 6-55 347) Forming Machine Upkeep Mechanic ID - VALDEZ MRAD, CHEST, 1 VIEW, NON [id number] 07:58:00Reason for exam:->intubatedShould this be performed at the bedside?->Yes [facility] : 1975 Sex: MFINAL REPORT RAD, CHEST, 1 VIEW, NON DEPT INDICATION: intubated COMPARISON: Prior day's exam FINDINGS: Portable frontal view of the chest. IMPRESSION: Support Lines: Stable. Lungs and pleura: Unchanged airspace and pleural opacities. No pneumothorax.Heart and mediastinum: Stable contours. Stable surgical changes.Additional findings: None. Signed: JR Tate Robert MDReport Verified Date/Time: 02/06/2021 07:58:22 Reading Location: [facility] Radiology Reading Room POCT-GLUCOSE [id number] 06:40:00 Test Item Value Reference Range Interpretation Comments POC-GLUCOSE METER 102 mg/dL 70-110 : TESTED A T [facility] 6720 (BEAKER) (test code = [place], 1538) 49964: Forming Machine Upkeep Mechanic/Techni won ID = [id number] for Cynthia Laird BASIC METABOLIC [id number] 04:44:00 Test Item Value Reference Range Interpretation [...] S NOT APPLICABLE FOR DIALYSIS PATIEN TS. Forming Machine Upkeep Mechanic ID - [id number] 04:20:00 Test Item Value Reference Range Interpretation Comments MAGNESIUM (BEAKER) (test code = 1.8 mg/dL 1.6-2.6 627) Forming Machine Upkeep Mechanic ID - [id number] 04:20:00 Test Item Value Reference Range Interpretation Comments PHOSPHORUS (BEAKER) (test code = 6.3 mg/dL 2.3-4.7 H 604) Forming Machine Upkeep Mechanic ID - DBPROTHROMBIN TIME/[id number] 04:19:00 Test Item Value Reference Range Interpretation Comments PROTIME (BEAKER) 22.0 seconds 11.9-14.2 H (test code = 759) INR (BEAKER) (test 1.95 See_Comment [Automat ed message] code = 370) The system [employer] generated this result transmitted ref erence range: <=5.90. The reference range was not used to int erpret this result as normal/abnormal . RECOMMENDED COUMADIN/WARFARIN INR THERAPY RANGESSTANDARD DOSE: 2.0 - 3.0 Includes: PROPHYLAXIS for venous thrombosis, systemic embolization; TREATMENT for venous thrombosis and/or pulmonary embolus.HIGH RISK: Target INR is 2.5-3.5 for patients with mechanical heart valves.CALCIUM, [id number] 03:29:00 Test Item Value Reference Range Interpretation Comments CALCIUM IONIZED (BEAKER) (test 1.18 mmol/L 1.12-1.27 code = 698) PH, BLOOD (BEAKER) (test code = 7.43 1810) CBC W/PLT COUNT & AUTO [id number] 03:28:00 Test Item Value Reference Range Interpretation [...] PERCENT (BEAKER) (test code = 2801) POCT-GLUCOSE [id number] 21:26:00 Test Item Value Reference Range Interpretation Comments POC-GLUCOSE METER 115 mg/dL 70-110 H : TESTED A T [facility] 6720 (BEAKER) (test code = [facility], 153) 64674: Forming Machine Upkeep Mechanic/Techni won ID = [id number] for Go nzCynthia motta [id number] 18:57:00 Test Item Value Reference Range Interpretation Comments MAGNESIUM (BEAKER) (test code = 1.8 mg/dL 1.6-2.6 627) Forming Machine Upkeep Mechanic ID - PIAYA LPOCT-GLUCOSE [id number] 18:44:00 Test Item Value Reference Range Interpretation Comments POC-GLUCOSE METER 102 mg/dL 70-110 : TESTED A T [facility] 6720 (BEAKER) (test code = [facility]) 15527: Forming Machine Upkeep Mechanic/Techni won ID = [id number] for Am inu, Kafayat POCT-GLUCOSE [id number] 12:50:00 Test Item Value Reference Range Interpretation Comments POC-GLUCOSE METER 84 mg/dL 70-110 : TESTED A T [facility] 6720 (BEAKER) (test code = [facility], 153) 00517: Forming Machine Upkeep Mechanic/Techni won ID = [id number] for RONAL BROCK POCT-GLUCOSE [id number] 07:48:00 Test Item Value Reference Range Interpretation Comments POC-GLUCOSE METER 88 mg/dL 70-110 : TESTED A T [facility] 6720 (BEAKER) (test code = [facility], 153) 94111: Forming Machine Upkeep Mechanic/Techni won ID = [id number] for RONAL BROCK RAD, CHEST, 1 VIEW, NON [id number] 06:09:00Reason for exam:- >intubatedShould this be performed at the bedside?->Yes [facility] : 1975 Sex: MFINAL REPORT [...] surgical changes.Additional findings: None. Signed: Re Cantu [facility] Verified Date/Time: 02/05/2021 06:09:25 BASIC METABOLIC [id number] 04:35:00 Test Item Value Reference Range Interpretation Comments SODIUM (BEAKER) 133 meq/L 136-145 L (test code = 381) POTASSIUM (BEAKER) 4.2 meq/L 3.5-5.1 (test code = 379) CHLORIDE (BEAKER) 101 meq/L 98-107 (test code = 382) CO2 (BEAKER) (test 23 meq/L code = 355) BLOOD UREA NITROGEN 32 [...] S NOT APPLICABLE FOR DIALYSIS PATIEN TS. Forming Machine Upkeep Mechanic ID - PIRAFY [id number] 04:16:00 Test Item Value Reference Range Interpretation Comments MAGNESIUM (BEAKER) (test code = 1.6 mg/dL 1.6-2.6 627) Forming Machine Upkeep Mechanic ID - PIRAFY [id number] 04:16:00 Test Item Value Reference Range Interpretation Comments PHOSPHORUS (BEAKER) (test code = 5.1 mg/dL 2.3-4.7 H 604) Forming Machine Upkeep Mechanic ID - LINA LCBC W/PLT COUNT & AUTO [id number] 04:13:00 Test Item Value Reference Range Interpretation [...] PERCENT (BEAKER) (test code = 2801) PROTHROMBIN TIME/[id number] 03:39:00 Test Item Value Reference Range Interpretation Comments PROTIME (BEAKER) 27.9 seconds 11.9-14.2 H (test code = 759) INR (BEAKER) (test 2.64 See_Comment [Automat ed message] code = 370) The system [employer] generated this result transmitted ref erence range: <=5.90. The reference range was not used to int erpret this result as normal/abnormal . RECOMMENDED COUMADIN/WARFARIN INR THERAPY RANGESSTANDARD DOSE: 2.0 - 3.0 Includes: PROPHYLAXIS for venous thrombosis, systemic embolization; TREATMENT for venous thrombosis and/or pulmonary embolus.HIGH RISK: Target INR is 2.5-3.5 for patients with mechanical heart valves.CALCIUM, [id number] 03:35:00 Test Item Value Reference Range Interpretation Comments CALCIUM IONIZED (BEAKER) (test 1.11 mmol/L 1.12-1.27 L code = 698) PH, BLOOD (BEAKER) (test code = 7.48 1810) POCT-GLUCOSE [id number] 21:54:00 Test Item Value Reference Range Interpretation Comments POC-GLUCOSE METER 105 mg/dL 70-110 : TESTED A T [facility] 6720 (BEAKER) (test code = [facility], 1538) 04918: Forming Machine Upkeep Mechanic/Techni won ID = [id number] for September PROTHROMBIN TIME/[id number] 20:05:00 Test Item Value Reference Range Interpretation Comments PROTIME (BEAKER) 30.9 seconds 11.9-14.2 H (test code = 759) INR (BEAKER) (test 3.01 See_Comment [Automat ed message] code = 370) The system [employer] generated this result transmitted ref erence range: <=5.90. The reference range was not used to int erpret this result as normal/abnormal . RECOMMENDED COUMADIN/WARFARIN INR THERAPY RANGESSTANDARD DOSE: 2.0 - 3.0 Includes: PROPHYLAXIS for venous thrombosis, systemic embolization; TREATMENT for venous thrombosis and/or pulmonary embolus.HIGH RISK: Target INR is 2.5-3.5 for patients with mechanical heart valves.POCT-GLUCOSE [id number] 19:04:00 Test Item Value Reference Range Interpretation Comments POC-GLUCOSE METER 128 mg/dL 70-110 H : TESTED A T [facility] 6720 (BEAKER) (test code = [facility], 1538) 09501: Forming Machine Upkeep Mechanic/Techni won ID = [id number] for Levy Vera CBC W/PLT COUNT & AUTO [id number] 15:37:00 Test Item Value Reference Range Interpretation [...] PERCENT (BEAKER) (test code = 2801) POCT-GLUCOSE [id number] 11:48:00 Test Item Value Reference Range Interpretation Comments POC-GLUCOSE METER 113 mg/dL 70-110 H : TESTED A T [facility] 6720 (BEAKER) (test code = [facility] [employer] [facility], 1538) 13025: Forming Machine Upkeep Mechanic/Techni won ID = [id number] for THOMAS BRYANT POCT-GLUCOSE [id number] 07:41:00 Test Item Value Reference Range Interpretation Comments POC-GLUCOSE METER 119 mg/dL 70-110 H : TESTED A T [facility] 6720 (BEAKER) (test code = [facility] [employer] [facility], 1538) 43864: Forming Machine Upkeep Mechanic/Techni won ID = [id number] for THOMAS BRYANT PROTHROMBIN TIME/[id number] 06:34:00 Test Item Value Reference Range Interpretation Comments PROTIME (BEAKER) 35.3 seconds 11.9-14.2 H (test code = 759) INR (BEAKER) (test 3.56 See_Comment [Automat ed message] code = 370) The system [employer] generated this result transmitted ref erence range: <=5.90. The reference range was not used to int erpret this result as normal/abnormal . RECOMMENDED COUMADIN/WARFARIN INR THERAPY RANGESSTANDARD DOSE: 2.0 - 3.0 Includes: PROPHYLAXIS for venous thrombosis, systemic embolization; TREATMENT for venous thrombosis and/or pulmonary embolus.HIGH RISK: Target INR is 2.5-3.5 for patients with mechanical heart valves.RAD, CHEST, 1 VIEW, NON [id number] 06:02:00Reason for exam:->intubatedShould this be performed at the bedside?->[facility] : 1975 Sex: MFINAL [...] contours. Stable surgical changes.Additional findings: None.Signed: Re Cantueport Verified Date/Time: 02/04/2021 06:02:13 BASIC METABOLIC [id number] 05:16:00 Test Item Value Reference Range Interpretation [...] S NOT APPLICABLE FOR DIALYSIS PATIEN TS. Forming Machine Upkeep Mechanic ID - VALDEZ [id number] 05:09:00 Test Item Value Reference Range Interpretation Comments PHOSPHORUS (BEAKER) (test code = 6.8 mg/dL 2.3-4.7 H 604) Forming Machine Upkeep Mechanic ID - VALDEZ [id number] 05:08:00 Test Item Value Reference Range Interpretation Comments MAGNESIUM (BEAKER) (test code = 1.9 mg/dL 1.6-2.6 627) Forming Machine Upkeep Mechanic ID - VALDEZ MCALCIUM, [id number] 05:01:00 Test Item Value Reference Range Interpretation Comments CALCIUM IONIZED (BEAKER) (test 1.12 mmol/L 1.12-1.27 code = 698) PH, BLOOD (BEAKER) (test code = 7.43 1810) CBC W/PLT COUNT & AUTO [id number] 04:49:00 Test Item Value Reference Range Interpretation [...] PERCENT (BEAKER) (test code = 2801) POCT-GLUCOSE [id number] 00:50:00 Test Item Value Reference Range Interpretation Comments POC-GLUCOSE METER 115 mg/dL 70-110 H : Notified RN/MD: (TAMARA) (test code = TESTED AT [facility] 67 1538) [facility], [address]: Forming Machine Upkeep Mechanic/Techni won ID = [id number] for Vinod Canas POCT-GLUCOSE [id number] 17:39:00 Test Item Value Reference Range Interpretation Comments POC-GLUCOSE METER 101 mg/dL 70-110 : TESTED A T [facility] 6720 ([facility]) (test code = [facility], 1538) 19941: Forming Machine Upkeep Mechanic/Techni won ID = [id number] for RONAL PEREZ POCT-GLUCOSE [id number] 11:33:00 Test Item Value Reference Range Interpretation Comments POC-GLUCOSE METER 90 mg/dL 70-110 : TESTED A T [facility] 6720 ([facility]) (test code = [facility], 1538) 24091: Forming Machine Upkeep Mechanic/Techni won ID = [id number] for RONAL BROCK RAD, CHEST, 1 VIEW, NON [id number] 09:24:00Reason for exam:- >intubatedShould this be performed at the bedside?->Yes [facility] : 1975 Sex: MFINAL [...] Cantu Verified Date/Time: 02/03/2021 09:24:45 Reading Location: [facility] Reading Room POCT-GLUCOSE [id number] 07:45:00 Test Item Value Reference Range Interpretation Comments POC-GLUCOSE METER 87 mg/dL 70-110 : TESTED A T [facility] 6720 (BEAKER) (test code [facility], = 1538) 28823: Forming Machine Upkeep Mechanic/Techni won ID = [id number] for Timmy hernandez [id number]), [facility] BASIC METABOLIC [id number] 05:08:00 Test Item Value Reference Range Interpretation [...] S NOT APPLICABLE FOR DIALYSIS PATIEN TS. Forming Machine Upkeep Mechanic ID - LINA [id number] 05:07:00 Test Item Value Reference Range Interpretation Comments MAGNESIUM (BEAKER) (test code = 1.9 mg/dL 1.6-2.6 627) Forming Machine Upkeep Mechanic ID - LINA [id number] 05:07:00 Test Item Value Reference Range Interpretation Comments PHOSPHORUS (BEAKER) (test code = 5.9 mg/dL 2.3-4.7 H 604) Forming Machine Upkeep Mechanic ID - LINA LCALCIUM, [id number] 03:59:00 Test Item Value Reference Range Interpretation Comments CALCIUM IONIZED (BEAKER) (test 1.13 mmol/L 1.12-1.27 code = 698) PH, BLOOD (BEAKER) (test code = 7.43 1810) CBC W/PLT COUNT & AUTO [id number] 03:45:00 Test Item Value Reference Range Interpretation [...] PERCENT (BEAKER) (test code = 2801) PROTHROMBIN [id number] 03:38:00 Test Item Value Reference Range Interpretation Comments PROTIME (BEAKER) 28.4 seconds 11.9-14.2 H (test code = 759) INR (BEAKER) (test 2.70 See_Comment [Automat ed message] code = 370) The system [employer] generated this result transmitted ref erence range: <=5.90. The reference range was not used to int erpret this result as normal/abnormal . RECOMMENDED COUMADIN/WARFARIN INR THERAPY RANGESSTANDARD DOSE: 2.0 - 3.0 Includes: PROPHYLAXIS for venous thrombosis, systemic embolization; TREATMENT for venous thrombosis and/or pulmonary embolus.HIGH RISK: Target INR is 2.5-3.5 for patients with mechanical heart valves.POCT-GLUCOSE [id number] 22:10:00 Test Item Value Reference Range Interpretation Comments POC-GLUCOSE METER 85 mg/dL 70-110 : TESTED A T [facility] 6720 ([place]) (test code = [facility] [employer] [facility], 153) 62783: Forming Machine Upkeep Mechanic/Techni won ID = [id number] for MESERET DELVALLESeptember POCT-GLUCOSE [id number] 16:43:00 Test Item Value Reference Range Interpretation Comments POC-GLUCOSE METER 88 mg/dL 70-110 : TESTED A T [facility] 6720 ([place]) (test code = [facility] [employer] [facility], 153) 46805: Forming Machine Upkeep Mechanic/Techni won ID = [id number] for IVONE ZHAO POCT-GLUCOSE [id number] 12:16:00 Test Item Value Reference Range Interpretation Comments POC-GLUCOSE METER 94 mg/dL 70-110 : TESTED A T [facility] 6720 (TAMARA) (test code = [facility], 1538) 49[address]: Forming Machine Upkeep Mechanic/Techni won ID = [id number] for IVONE ZHAO RAD, CHEST, 1 VIEW, NON [id number] 08:20:00Reason for exam:- >intubatedShould this be performed at the bedside?->Yes [facility] : 1975 Sex: MFINAL REPORT RAD, CHEST, 1 VIEW, NON DEPT INDICATION: intubated COMPARISON: Prior day's exam FINDINGS: Portable frontal view of the chest. IMPRESSION: Support Lines: Dialysis catheter tip overlies right atrium. Sternotomy wires. Lungs and pleura: Bilateral effusions with adjacent compre ssive atelectasis. No pneumothorax.Heart and mediastinum: Stable contours. Stable surgical changes.Additional findings: None. Signed: Re Cantu MDRflo Verified Date/Time: 02/02/2021 08:20:25 Reading Location: [facility] Radiology Reading Room XR chest 1 view portable / [id number] 08:20:00 Interface, External Ris In - 02/02/2021 [...] Cantu Verified Date/Time: 02/02/2021 08:20:25 Reading Location: [facility]iology [facility] / [id number] 08:20:00Interface, External Ris In - 02/02/2021 8:22 AM CDTFINAL REPORT RAD, CHEST, 1 VIEW, NON DEPT INDICATION: intubated COMPARISON: Prior day's exam FINDINGS: Portable frontal view of the chest. IMPRESSION: Support Lines: Dialysis catheter tip overlies right atrium. Sternotomy wires. Jojo ngs and pleura: Bilateral effusions with adjacent compressive atelectasis. No pneumothorax.Heart andmediastinum: Stable contours. Stable surgical changes.Additional findings: None. Signed: Re Cantu Verified Date/Time: 02/02/2021 08:20:25 Reading Location: [facility] Radiology Reading [facility] 1 view portable / [id number] 08:20:00Interface, External Ris In - 02/02/2021 8:22 AM CDTFINAL REPORT RAD, CHEST, 1 VIEW, NON DEPT INDICATION: intubated COMPARISON: Prior day's exam FINDINGS: Portable frontal view of the chest. IMPRESSION: Support Lines: Dialysis catheter tip overlies right atrium. Sternotomy wires. Jojo ngs and pleura: Bilateral effusions with adjacent compressive atelectasis. No pneumothorax.Heart andmediastinum: Stable contours. Stable surgical changes.Additional findings: None. Signed: Re Cantu Verified Date/Time: 02/02/2021 08:20:25 Reading Location: [facility] Radiology Reading Room [facility] CenterPOC-Glucose [id number] 07:38:00 Test Item Value Reference Range Interpretation Comments POC-Glucose Meter (test 83 mg/dL 70-110 : TE STED AT [facility] code = 1538) 20 [facility], 770 30: Forming Machine Upkeep Mechanic/Techni won ID = [id number] for VINOD, RONAL Lab Interpretation (test Normal code = 94890-9) [facility] [id number] 07:38:00 Test Item Value Reference Range Interpretation Comments POC-Glucose Meter (test 83 mg/dL 70-110 : TE STED AT [facility] code = 1538) [address] [place] [address], 770 30: Forming Machine Upkeep Mechanic/Techni won ID = [id number] for VINOD, RONAL Lab Interpretation (test Normal code = 63482-6) [facility] [id number] 07:38:00 Test Item Value Reference Range Interpretation Comments POC-Glucose Meter (test 83 mg/dL 70-110 : TE STED AT [facility] code = 1538) [address] [place] [address], 770 30: Forming Machine Upkeep Mechanic/Techni won ID = [id number] for VINOD, RONAL Lab Interpretation (test Normal code = 14586-2) [facility]-GLUCOSE [id number] 07:38:00 Test Item Value Reference Range Interpretation Comments POC-GLUCOSE METER 83 mg/dL 70-110 : TESTED A T [facility] 6720 (BEAKER) (test code = NORM [facility], 1538) [address]: Forming Machine Upkeep Mechanic/Techni won ID = [id number] for VINOD, RONAL Calcium, [id number] 06:32:00 Test Item Value Reference Range Interpretation Comments Calcium, Ion (test code = 1993-08) 1.09 mmol/L 1.12-1.27 L pH, Blood (test code = 52483-3) 7.42 Lab Interpretation (test code = Abnormal 12756-1) [facility], [id number] 06:32:00 Test Item Value Reference Range Interpretation Comments Calcium, Ion (test code = 1993-08) 1.09 mmol/L 1.12-1.27 L pH, Blood (test code = 02656-9) 7.42 Lab Interpretation (test code = Abnormal 47393-0) [facility], [id number] 06:32:00 Test Item Value Reference Range Interpretation Comments Calcium, Ion (test code = 1994-3) 1.09 mmol/L 1.12-1.27 L pH, Blood (test code = 57961-1) 7.42 Lab Interpretation (test code = Abnormal 49497-8) [facility] CenterCAL[facility], [id number] 06:32:00 Test Item Value Reference Range Interpretation Comments CALCIUM IONIZED (BEAKER) (test 1.09 mmol/L 1.12-1.27 L code = 698) PH, BLOOD (BEAKER) (test code = 7.42 1810) CBC with platelet count + automated [id number] 04:38:00 Test Item Value Reference Range Interpretation Comments WBC (test code = 6690-2) 8.8 See_Comment [A utomated message] The system [employer] generated this result transmitted ref erence range: 3.5 - 10 .5 K/L. The refe rence range was not u sed to interpret this result as normal/abnor mal. RBC (test code = 789-8) 2.72 See_Comment L [Au tomated message] The system [employer] generated this result transmitted ref erence range: 4.63 - 6 .08 M/L. The refe rence range was not u sed to interpret this result as normal/abnor mal. MCHC (test code = 786-4) 32.2 See_Comment L [A utomated message] The system [employer] generated this result transmitted ref erence range: [...] code = 233 See_Comment [Aut omated message] 627-3) The system [employer] generated this result transmitted ref erence range: 150 - 45 0 K/CU MM. The referen ce range was not u sed to interpret this result as normal/abnor mal. MPV (test code = 9.9 fL 9.4-12.4 99782-6) nRBC (test code = 413) 0 See_Comment [Aut omated message] The system [employer] generated this result transmitted ref erence range: [...] H [Aut omated message] 670) The system [employer] generated this result transmitted ref erence range: 1.78 - 5 .38 K/L. The refe rence range was not u sed to interpret this result as normal/abnor mal. # Lymphs (test code = 0.63 See_Comment L [Auto mated message] 414) The system [employer] generated this result transmitted ref erence range: 1.32 - 3 .57 K/L. The refe rence range was not u sed to interpret this result as normal/abnor mal. # Monos (test code = 0.76 See_Comment [Autom ated message] 415) The system [employer] generated this result transmitted ref erence range: 0.30 - 0 .82 K/L. The refe rence range was not u sed to interpret this result as normal/abnor mal. # Eos (test code = 416) 0.44 See_Comment [Au tomated message] The system [employer] generated this result transmitted ref erence range: 0.04 - 0 .54 K/L. The refe rence range was not u sed to interpret this result as normal/abnor mal. # Baso (test code = 417) 0.07 See_Comment [A utomated message] The system [employer] generated this result transmitted ref erence range: 0.01 - 0 .08 K/L. The refe rence range was not u sed to interpret this result as normal/abnor mal. Immature 1 % 0-1 Granulocytes-Relative (test code = 2801) Lab Interpretation (test Abnormal code = 68199-7) [facility] with platelet count + automated [id number] 04:38:00 Test Item Value Reference Range Interpretation Comments WBC (test code = 6690-2) 8.8 See_Comment [A utomated message] The system [employer] generated this result transmitted ref erence range: 3.5 - 10 .5 K/L. The refe rence range was not u sed to interpret this result as normal/abnor mal. RBC (test code = 789-8) 2.72 See_Comment L [Au tomated message] The system [employer] generated this result transmitted ref erence range: 4.63 - 6 .08 M/L. The refe rence range was not u sed to interpret this result as normal/abnor mal. MCHC (test code = 786-4) 32.2 See_Comment L [A utomated message] The system [employer] generated this result transmitted ref erence range: [...] See_Comment [Aut omated message] 777-3) The system [employer] generated this result transmitted ref erence range: 150 - 45 0 K/CU MM. The referen ce range was not u sed to interpret this result as normal/abnor mal. MPV (test code = 9.9 fL 9.4-12.4 46964-8) nRBC (test code = 413) 0 See_Comment [Aut omated message] The system [employer] generated this result transmitted ref erence range: [...] H [Aut omated message] 670) The system [employer] generated this result transmitted ref erence range: 1.78 - 5 .38 K/L. The refe rence range was not u sed to interpret this result as normal/abnor mal. # Lymphs (test code = 0.63 See_Comment L [Auto mated message] 414) The system [employer] generated this result transmitted ref erence range: 1.32 - 3 .57 K/L. The refe rence range was not u sed to interpret this result as normal/abnor mal. # Monos (test code = 0.76 See_Comment [Autom ated message] 415) The system [employer] generated this result transmitted ref erence range: 0.30 - 0 .82 K/L. The refe rence range was not u sed to interpret this result as normal/abnor mal. # Eos (test code = 416) 0.44 See_Comment [Au tomated message] The system [employer] generated this result transmitted ref erence range: 0.04 - 0 .54 K/L. The refe rence range was not u sed to interpret this result as normal/abnor mal. # Baso (test code = 417) 0.07 See_Comment [A utomated message] The system [employer] generated this result transmitted ref erence range: 0.01 - 0 .08 K/L. The refe rence range was not u sed to interpret this result as normal/abnor mal. Immature 1 % 0-1 Granulocytes-Relative (test code = 2801) Lab Interpretation (test Abnormal code = 91006-4) [facility] with platelet count + automated [id number] 04:38:00 Test Item Value Reference Range Interpretation Comments WBC (test code = 6690-2) 8.8 See_Comment [A utomated message] The system [employer] generated this result transmitted ref erence range: 3.5 - 10 .5 K/L. The refe rence range was not u sed to interpret this result as normal/abnor mal. RBC (test code = 789-8) 2.72 See_Comment L [Au tomated message] The system [employer] generated this result transmitted ref erence range: 4.63 - 6 .08 M/L. The refe rence range was not u sed to interpret this result as normal/abnor mal. MCHC (test code = 786-4) 32.2 See_Comment L [A utomated message] The system [employer] generated this result transmitted ref erence range: [...] See_Comment [Aut omated message] 777-3) The system [employer] generated this result transmitted ref erence range: 150 - 45 0 K/CU MM. The referen ce range was not u sed to interpret this result as normal/abnor mal. MPV (test code = 9.9 fL 9.4-12.4 61509-3) nRBC (test code = 413) 0 See_Comment [Aut omated message] The system [employer] generated this result transmitted ref erence range: [...] H [Aut omated message] 670) The system [employer] generated this result transmitted ref erence range: 1.78 - 5 .38 K/L. The refe rence range was not u sed to interpret this result as normal/abnor mal. # Lymphs (test code = 0.63 See_Comment L [Auto mated message] 414) The system [employer] generated this result transmitted ref erence range: 1.32 - 3 .57 K/L. The refe rence range was not u sed to interpret this result as normal/abnor mal. # Monos (test code = 0.76 See_Comment [Autom ated message] 415) The system [employer] generated this result transmitted ref erence range: 0.30 - 0 .82 K/L. The refe rence range was not u sed to interpret this result as normal/abnor mal. # Eos (test code = 416) 0.44 See_Comment [Au tomated message] The system [employer] generated this result transmitted ref erence range: 0.04 - 0 .54 K/L. The refe rence range was not u sed to interpret this result as normal/abnor mal. # Baso (test code = 417) 0.07 See_Comment [A utomated message] The system [employer] generated this result transmitted ref erence range: 0.01 - 0 .08 K/L. The refe rence range was not u sed to interpret this result as normal/abnor mal. Immature 1 % 0-1 Granulocytes-Relative (test code = 2801) Lab Interpretation (test Abnormal code = 33857-0) [facility] W/PLT COUNT & AUTO [id number] 04:38:00 Test Item Value Reference Range Interpretation [...] (BEAKER) (test code = 2801) Basic Metabolic [id number] 04:28:00 Test Item Value Reference Range Interpretation Comments Sodium (test code = 138 meq/L 028-435 0297-2) Potassium (test code = 4.4 meq/L 3.5-5.1 2823-3) Chloride (test code = 104 meq/L 98-107 5-0) CO2 (test code = 24 meq/L 22-29 8-9) BUN (test code = 40 mg/dL 7-21 H 3094-0) Creatinine (test code 4.27 mg/dL 0.57-1.25 H = 2160-0) Glucose (test code = 94 mg/dL 70-105 2345-7) Calcium (test code = 8.3 mg/dL 8.4-10.2 L 95771-4) EGFR (test code = 19 mL/min/1[place] [address]-2) NOT ACCURATE CREATININE CLEARANCE IN PREDICTING GLOMERULAR FILTRATION RATE . ESTIMATED GFR I S NOT APPLICABLE FOR DIALYSIS PATIENTS. CARLEY (test code = CARLEY) Forming Machine Upkeep Mechanic ID - VALDEZ M Lab Interpretation Abnormal (test code = 97869-6) [facility] Metabolic [id number] 04:28:00 Test Item Value Reference Range Interpretation Comments Sodium (test code = 138 meq/L 470-368 4170-2) Potassium (test code = 4.4 meq/L 3.5-5.1 2823-3) Chloride (test code = 104 meq/L 98-107 2075-0) CO2 (test code = 24 meq/L -2027-) BUN (test code = 40 mg/dL 7-21 H 3094-0) Creatinine (test code 4.27 mg/dL 0.57-1.25 H = 2160-0) Glucose (test code = 94 mg/dL 70-105 2345-7) Calcium (test code = 8.3 mg/dL 8.4-10.2 L 73172-7) EGFR (test code = 19 mL/min/1.73 [place] [address]-7) NOT ACCURATE CREATININE CLEARANCE IN PREDICTING GLOMERULAR FILTRATION RATE . ESTIMATED GFR I S NOT APPLICABLE FOR DIALYSIS PATIENTS. CARLEY (test code = CARLEY) Form[employer] Machine Upkeep Mechanic ID - VALDEZ M Lab Interpretation Abnormal (test code = 98009-8) [facility] Metabolic [id number] 04:28:00 Test Item Value Reference Range Interpretation Comments Sodium (test code = 138 meq/L 061-821 8492-2) Potassium (test code = 4.4 meq/L 3.5-5.1 2823-3) Chloride (test code = 104 meq/L 98-107 2075-0) CO2 (test code = 24 meq/L -29 2028-9) BUN (test code = 40 mg/dL 7-21 H 3094-0) Creatinine (test code 4.27 mg/dL 0.57-1.25 H = 2160-0) Glucose (test code = 94 mg/dL 70-105 2345-7) Calcium (test code = 8.3 mg/dL 8.4-10.2 L 18452-2) EGFR (test code = 19 mL/min/1.[place] [address]-7) NOT ACCURATE CREATININE CLEARANCE IN PREDICTING GLOMERULAR FILTRATION RATE . ESTIMATED GFR I S NOT APPLICABLE FOR DIALYSIS PATIENTS. CARLEY (test code = CARLEY) Forming Machine Upkeep Mechanic ID - VALDEZ M Lab Interpretation Abnormal (test code = 40385-5) [facility] [id number] 04:28:00 Test Item Value Reference Range Interpretation [...] S NOT APPLICABLE FOR DIALYSIS PATIEN TS. Forming Machine Upkeep Mechanic ID - VALDEZ [id number] 04:14:00 Test Item Value Reference Range Interpretation Comments Magnesium (test code = 2.0 mg/dL 1.6-2.6 56446-8) CARLEY (test code = CARLEY) Forming Machine Upkeep Mechanic ID - VALDEZ M Lab Interpretation (test Normal code = 66382-4) [facility] 04:14:00 Test Item Value Reference Range Interpretation Comments Phosphorus (test code = 4.6 mg/dL 2.3-4.7 2777-1) CARLEY (test code = CARLEY) Forming Machine Upkeep Mechanic ID - VALDEZ M Lab Interpretation (test Normal code = 79892-0) [facility]esium2021-08-26 04:14:00 Test Item Value Reference Range Interpretation Comments Magnesium (test code = 2.0 mg/dL 1.6-2.6 10184-1) CARLEY (test code = CARLEY) Forming Machine Upkeep Mechanic ID - VALDEZ Lab Interpretation (test Normal code = 03793-3) [facility]21-[facility] 04:14:00 Test Item Value Reference Range Interpretation Comments Phosphorus (test code = 4.6 mg/dL 2.3-4.7 2777-1) CARLEY (test code = CARLEY) Forming Machine Upkeep Mechanic ID - VALDEZ Lab Interpretation (test Normal code = 81348-4) [facility]esium2021-08-26 04:14:00 Test Item Value Reference Range Interpretation Comments Magnesium (test code = 2.0 mg/dL 1.6-2.6 47316-6) CARLEY (test code = CARLEY) Forming Machine Upkeep Mechanic ID - VALDEZ Lab Interpretation (test Normal code = 55453-0) [facility]21-[facility]-26 04:14:00 Test Item Value Reference Range Interpretation Comments Phosphorus (test code = 4.6 mg/dL 2.3-4.7 2777-1) CARLEY (test code = CARLEY) Forming Machine Upkeep Mechanic ID - VALDEZ Lab Interpretation (test Normal code = 62964-3) [facility]UM2021-08-26 04:14:00 Test Item Value Reference Range Interpretation Comments MAGNESIUM (BEAKER) (test code = 2.0 mg/dL 1.6-2.6 627) Forming Machine Upkeep Mechanic ID - VALDEZ [id number] 04:14:00 Test Item Value Reference Range Interpretation Comments PHOSPHORUS (BEAKER) (test code = 4.6 mg/dL 2.3-4.7 604) Forming Machine Upkeep Mechanic ID - VALDEZ MPTH, [id number] 04:12:00 Test Item Value Reference Range Interpretation Comments PTH (test code = 2731-8) 237.8 pg/mL 8.5-72.5 H CARLEY (test code = CARLEY) Forming Machine Upkeep Mechanic ID Doretha Rae Lab Interpretation (test Abnormal code = 40099-3) [facility], [id number] 04:12:00 Test Item Value Reference Range Interpretation Comments PTH (test code = 2731-8) 237.8 pg/mL 8.5-72.5 H CARLEY (test code = CARLEY) Forming Machine Upkeep Mechanic ID Doretha Rae Lab Interpretation (test Abnormal code = 58850-6) [facility], [id number] 04:12:00 Test Item Value Reference Range Interpretation Comments PTH (test code = 2731-8) 237.8 pg/mL 8.5-72.5 H CARLEY (test code = CARLEY) Forming Machine Upkeep Mechanic ID Doretha Rae Lab Interpretation (test Abnormal code = 07009-0) [facility], [id number] 04:12:00 Test Item Value Reference Range Interpretation Comments PARATHYROID HORMONE INTACT 237.8 pg/mL 8.5-72.5 H (BEAKER) (test code = 577) [employer]ing Machine Upkeep Mechanic ID Doretha [facility] Prothrombin time/INR while on kwgxjkhg1523-27-35 03:58:00 Test Item Value Reference Interpretation Comments [...] valves. Lab Interpretation Abnormal (test code = 63683-3) [facility] Prothrombin time/INR while on warfarin 2021-02-02 03:58:00 [...] valves. Lab Interpretation Abnormal (test code = 94960-4) [facility]Daily Prothrombin time/INR while on warfarin [...] valves. Lab Interpretation Abnormal (test code = 79425-3) [facility] CenterPROTHROMBIN TIME/[id number] 03:58:00 Test Item Value Reference Range Interpretation Comments PROTIME (BEAKER) 19.8 seconds 11.9-14.2 H (test code = 759) INR (BEAKER) (test 1.71 See_Comment [Automat ed message] code = 370) The system [employer] generated this result transmitted ref erence range: <=5.90. The reference range was not used to int erpret this result as normal/abnormal . RECOMMENDED COUMADIN/WARFARIN INR THERAPY RANGESSTANDARD DOSE: 2.0 - 3.0 Includes: PROPHYLAXIS for venous thrombosis, systemic embolization; TREATMENT for venous thrombosis and/or pulmonary embolus.HIGH RISK: Target INR is 2.5-3.5 for patients with mechanical heart valves.POCT-GLUCOSE [id number] 03:56:00 Test Item Value Reference Range Interpretation Comments POC-GLUCOSE METER 94 mg/dL 70-110 : TESTED A T [facility] [address] ([place]) (test code = [facility], 153) 11661: Forming Machine Upkeep Mechanic/Techni won ID = [id number] for Comp uesto, Rizalino POCT-GLUCOSE [id number] 00:10:00 Test Item Value Reference Range Interpretation Comments POC-GLUCOSE METER 83 mg/dL 70-110 : TESTED A T [facility] [address] ([place]) (test code = [facility], 153) 55715: Forming Machine Upkeep Mechanic/Techni won ID = [id number] for Dom Brody shah POCT-GLUCOSE [id number] 15:37:00 Test Item Value Reference Range Interpretation Comments POC-GLUCOSE METER 73 mg/dL 70-110 : TESTED A T [facility] [address] ([place]) (test code = [facility], 153) 32343: Forming Machine Upkeep Mechanic/Techni won ID = [id number] for Atwo od (V), Anurag POCT-GLUCOSE [id number] 14:59:00 Test Item Value Reference Range Interpretation Comments POC-GLUCOSE METER 68 mg/dL 70-110 L : TESTED A T [facility] [address] ([place]) (test code = [facility], 153) 56736: Forming Machine Upkeep Mechanic/Techni won ID = [id number] for Atwo od (V), Anurag CT, CHEST, WITHOUT [id number] 14:15:00ICU attending Dr. Novaklisted Reason for Exam - Click Yes and Enter Reason Below->YesUnlisted Reason for Exam->Evaluate [facility] 1975 Sex: MFINAL [...] Browning Verified Date/Time: 02/01/2021 14:15:18 Reading Location: [address] Body Reading Room CT chest without IV [id number] 14:15:00Interface, External Ris In - 02/01/2021 2:17 [...] MDReport Verified Date/Time: 02/01/2021 14:15:18 Reading Location: [facility] C013Y CT [facility] 2021-02-01 14:15:00Interface, External [...] MDReport Verified Date/Time: 02/01/2021 14:15:18 Reading Location: [address] [facility] 2021-02-01 14:15:00Interface, External [...] MDReport Verified Date/Time: 02/01/2021 14:15:18 Reading Location: [address] Body [facility] [id number] 11:48:00 Test Item Value Reference Range Interpretation Comments POC-GLUCOSE METER 64 mg/dL 70-110 L : TESTED A T [facility] 67[address] (BEAKER) (test code = [place], 1538) 91600: Forming Machine Upkeep Mechanic/Techni won ID = [id number] for Edwin gardner (contract), [facility] helle RAD, CHEST, 1 VIEW, NON [id number] 07:53:00Reason for exam:- >intubatedShould this be performed at the bedside?->Yes [facility] : 1975 Sex: MFINAL REPORT [...] Cantu Verified Date/Time: 02/01/2021 07:53:28 Reading Location: [facility] Radiology Reading Room CALCIUM, [id number] 05:25:00 Test Item Value Reference Range Interpretation Comments CALCIUM IONIZED (BEAKER) (test 1.09 mmol/L 1.12-1.27 L code = 698) PH, BLOOD (BEAKER) (test code = 7.44 1810) BASIC METABOLIC [id number] 05:19:00 Test Item Value Reference Range Interpretation [...] S NOT APPLICABLE FOR DIALYSIS PATIEN TS. Forming Machine Upkeep Mechanic ID - LINA [id number] 05:13:00 Test Item Value Reference Range Interpretation Comments MAGNESIUM (BEAKER) (test code = 2.0 mg/dL 1.6-2.6 627) Forming Machine Upkeep Mechanic ID - LINA [id number] 05:13:00 Test Item Value Reference Range Interpretation Comments PHOSPHORUS (BEAKER) (test code = 4.9 mg/dL 2.3-4.7 H 604) Forming Machine Upkeep Mechanic ID - LINA LPROTHROMBIN TIME/[id number] 04:50:00 Test Item Value Reference Range Interpretation Comments PROTIME (BEAKER) 17.7 seconds 11.9-14.2 H (test code = 759) INR (BEAKER) (test 1.48 See_Comment [Automat ed message] code = 370) The system [employer] generated this result transmitted ref erence range: <=5.90. The reference range was not used to int erpret this result as normal/abnormal . RECOMMENDED COUMADIN/WARFARIN INR THERAPY RANGESSTANDARD DOSE: 2.0 - 3.0 Includes: PROPHYLAXIS for venous thrombosis, systemic embolization; TREATMENT for venous thrombosis and/or pulmonary embolus.HIGH RISK: Target INR is 2.5-3.5 for patients with mechanical heart valves.CBC W/PLT COUNT & AUTO [id number] 04:41:00 Test Item Value Reference Range Interpretation [...] PERCENT (BEAKER) (test code = 2801) POCT-GLUCOSE [id number] 01:16:00 Test Item Value Reference Range Interpretation Comments POC-GLUCOSE METER 79 mg/dL 70-110 : TESTED A T [facility] [address] (BEAKER) (test code = [place], 1538) 19312: Forming Machine Upkeep Mechanic/Techni won ID = [id number] for VI PRIETO POCT-GLUCOSE [id number] 22:03:00 Test Item Value Reference Range Interpretation Comments POC-GLUCOSE METER 83 mg/dL 70-110 : TESTED A T [facility] 67[address] (BEAKER) (test code = [place], 1538) 36059: Forming Machine Upkeep Mechanic/Techni won ID = [id number] for MUSE BEVI Hemoglobin and [id number] 17:25:00 Test Item Value Reference Range Interpretation [...] = 4544-3) CARLEY (test code = CARLEY) Forming Machine Upkeep Mechanic ID - [id number] Lab Interpretation Abnormal (test code = 23189-0) [facility] CenterHem[facility] and [id number] 17:25:00 Test Item Value Reference Range Interpretation [...] = 4544-3) CARLEY (test code = CARLEY) Forming Machine Upkeep Mechanic ID - [id number] Lab Interpretation Abnormal (test code = 93635-7) [facility] CenterHem[facility] and [id number] 17:25:00 Test Item Value Reference Range Interpretation [...] = 4544-3) CARLEY (test code = CARLEY) Forming Machine Upkeep Mechanic ID - [id number] Lab Interpretation Abnormal (test code = 14105-8) [facility] CenterHEMOGLOBIN AND [id number] 17:25:00 Test Item Value Reference Range Interpretation Comments HEMOGLOBIN (BEAKER) (test code = 7.5 GM/DL 13.7-17.5 L 410) HEMATOCRIT (BEAKER) (test code = 23.1 % 40.1-51.0 L 411) Forming Machine Upkeep Mechanic ID - [id number]-GLUCOSE [id number] 11:36:00 Test Item Value Reference Range Interpretation Comments POC-GLUCOSE METER 105 mg/dL 70-110 : TESTED A T [facility] [address] (BEAKER) (test code = [facility], 1538) 76278: Forming Machine Upkeep Mechanic/Techni won ID = [id number] for RONAL PEREZ POCT-GLUCOSE [id number] 07:26:00 Test Item Value Reference Range Interpretation Comments POC-GLUCOSE METER 69 mg/dL 70-110 L : TESTED A T [facility] [address] (BEAKER) (test code = [facility], 1538) 77285: Forming Machine Upkeep Mechanic/Techni won ID = [id number] for RONAL BROCK BASIC METABOLIC [id number] 05:40:00 Test Item Value Reference Range Interpretation [...] S NOT APPLICABLE FOR DIALYSIS PATIEN TS. Forming Machine Upkeep Mechanic ID - PIAYA [id number] 05:24:00 Test Item Value Reference Range Interpretation Comments MAGNESIUM (BEAKER) (test code = 2.0 mg/dL 1.6-2.6 627) Forming Machine Upkeep Mechanic ID - PIAYA [id number] 05:24:00 Test Item Value Reference Range Interpretation Comments PHOSPHORUS (BEAKER) (test code = 4.1 mg/dL 2.3-4.7 604) Forming Machine Upkeep Mechanic ID - PIAYA LCBC W/PLT COUNT & AUTO [id number] 05:04:00 Test Item Value Reference Range Interpretation [...] (BEAKER) (test code = 2801) Lactic Acid, [id number] 04:53:00 Test Item Value Reference Range Interpretation Comments Lactate, Art (test code = 0.4 mmol/L 0.5-2.2 L 2874) CARLEY (test code = CARLEY) Forming Machine Upkeep Mechanic ID - LINA L Lab Interpretation (test Abnormal code = 21617-8) [facility] CenterL[facility] Acid, [id number] 04:53:00 Test Item Value Reference Range Interpretation Comments Lactate, Art (test code = 0.4 mmol/L 0.5-2.2 L 2874) CARLEY (test code = CARLEY) Forming Machine Upkeep Mechanic ID - LINA L Lab Interpretation (test Abnormal code = 68202-9) [facility] CenterLactic Acid, [id number] 04:53:00 Test Item Value Reference Range Interpretation Comments Lactate, Art (test code = 0.4 mmol/L 0.5-2.2 L 2874) CARLEY (test code = CARLEY) Forming Machine Upkeep Mechanic ID - LINA L Lab Interpretation (test Abnormal code = 60408-9) [facility] CenterLACTIC ACID, [id number] 04:53:00 Test Item Value Reference Range Interpretation Comments LACTATE BLOOD ARTERIAL (2) 0.4 mmol/L 0.5-2.2 L (BEAKER) (test code = 2874) Forming Machine Upkeep Mechanic ID - LINA [id number] 04:49:00 Test Item Value Reference Range Interpretation Comments PTT (test code = 40.1 See_Comment H [Automated message] 94737-3) The system [employer] generated this result transmitted ref erence range: 22.5 - 3 6.0 seconds. The reference range was not used to int erpret this result as normal/abnormal . Lab Interpretation (test Abnormal code = 60984-0) [facility] CenterPT/[id number] 04:49:00 Test Item Value Reference Interpretation Comments [...] (test code = 40.1 See_Comment H [Automated 71178-5) message] The system which generated this result [...] valves. Lab Interpretation Abnormal (test code = 15849-3) [facility] CenteraPTT2021-08-24 04:49:00 Test Item Value Reference Range Interpretation Comments PTT (test code = 40.1 See_Comment H [Automated message] 56231-7) The system [employer] generated this result transmitted ref erence range: 22.5 - 3 6.0 seconds. The reference range was not used to int erpret this result as normal/abnormal . Lab Interpretation (test Abnormal code = 81645-6) [facility]PT/[id number] 04:49:00 Test Item Value Reference Interpretation Comments [...] (test code = 40.1 See_Comment H [Automated 12015-2) message] The system which generated this result [...] valves. Lab Interpretation Abnormal (test code = 85836-1) [facility]eraPTT2021-08-24 04:49:00 Test Item Value Reference Range Interpretation Comments PTT (test code = 40.1 See_Comment H [Automated message] 47650-7) The system [employer] generated this result transmitted ref erence range: 22.5 - 3 6.0 seconds. The reference range was not used to int erpret this result as normal/abnormal . Lab Interpretation (test Abnormal code = 05817-4) [facility]PT/[id number] 04:49:00 Test Item Value Reference Interpretation Comments [...] (test code = 40.1 See_Comment H [Automated 06843-9) message] The system which generated this result [...] valves. Lab Interpretation Abnormal (test code = 70616-7) [facility] CenterAPTT2021-08-24 04:49:00 Test Item Value Reference Range Interpretation Comments PARTIAL THROMBOPLASTIN TIME 40.1 seconds 22.5-36.0 H (BEAKER) (test code = 760) [id number] 04:49:00 Test Item Value Reference Range Interpretation [...] 2.5-3.5 for patients with mechanical heart valves.PROTHROMBIN TIME/[id number] 04:48:00 Test Item Value Reference Range Interpretation Comments PROTIME (BEAKER) 17.9 seconds 11.9-14.2 H (test code = 759) INR (BEAKER) (test 1.50 See_Comment [Automat ed message] code = 370) The system [employer] generated this result transmitted ref erence range: <=5.90. The reference range was not used to int erpret this result as normal/abnormal . RECOMMENDED COUMADIN/WARFARIN INR THERAPY RANGESSTANDARD DOSE: 2.0 - 3.0 Includes: PROPHYLAXIS for venous thrombosis, systemic embolization; TREATMENT for venous thrombosis and/or pulmonary embolus.HIGH RISK: Target INR is 2.5-3.5 for patients with mechanical heart valves.Blood gas, [id number] 04:44:00 Test Item Value Reference Range Interpretation Comments pH, Arterial (test code 7.49 7.35-7.45 H = 2744-1) pCO2, Arterial (test 37 See_Comment [Autom ated message] code = 2019-8) The system [facility] generated this result transmit ari reference range : 35 - 45 mm Hg. The reference range was not used to interpret this result as normal/abnormal . pO2, Arterial (test 130 See_Comment H [Automa ari message] code = 2703-7) The system [employer] generated this result transmit ari reference range [...] 35 Lab Interpretation Abnormal (test code = 63168-3) [facility] CenterBlood gas, [id number] 04:44:00 Test Item Value Reference Range Interpretation Comments pH, Arterial (test code 7.49 7.35-7.45 H = 2744-1) pCO2, Arterial (test 37 See_Comment [Autom ated message] code = 2019-8) The system [employer] generated this result transmit ari reference range : 35 - 45 mm Hg. The reference range was not used to interpret this result as normal/abnormal . pO2, Arterial (test 130 See_Comment H [Automa ari message] code = 2703-7) The system [employer] generated this result transmit ari reference range [...] 35 Lab Interpretation Abnormal (test code = 05171-9) [facility] CenterBlood gas, [id number] 04:44:00 Test Item Value Reference Range Interpretation Comments pH, Arterial (test code 7.49 7.35-7.45 H = 2744-1) pCO2, Arterial (test 37 See_Comment [Autom ated message] code = 2019-8) The system [employer] generated this result transmit ari reference range : 35 - 45 mm Hg. The reference range was not used to interpret this result as normal/abnormal . pO2, Arterial (test 130 See_Comment H [Automa ari message] code = 2703-7) The system [facility] generated this result transmit ari reference [...] 35 Lab Interpretation Abnormal (test code = 76727-8) [facility] CenterBLOOD GAS, [id number] 04:44:00 Test Item Value Reference Range Interpretation [...] (BEAKER) (test code = 1819) 35.0 CALCIUM, [id number] 04:44:00 Test Item Value Reference Range Interpretation Comments CALCIUM IONIZED (BEAKER) (test 1.11 mmol/L 1.12-1.27 L code = 698) PH, BLOOD (BEAKER) (test code = 7.49 1810) RAD, CHEST, 1 VIEW, NON [id number] 04:44:00Reason for exam:- >intubatedShould this be performed at the bedside?->Yes [facility] 1975 Sex: MFINAL REPORT Chest one view. Clinical history: intubated Comparison: Chest radiograph 01/30/2021. Technique: A single frontal view of the chest was obtained. Findings:There is a right IJcentral venous catheter with tip in the right atrium. There is a left axillary line. There has been interval removal of enteric tube. An endotracheal tube is not identified. There is a cardiac valve prosthesis. There are median sternotomy wires.The cardiomediastinal contours are stable. There are persistent diffuse bilateral airspace opacities. There are small bilateral perfusions. There is no pneumothorax. Signed: Buck Warrenort Verified Date/Time: 01/31/2021 04:44:53 Prepare Leuko-Red [id number] 23:54:00 Test Item Value Reference Range Interpretation Comments CROSSMATCH (test code = 2264) COMPATIBLE Unit ABO (test code = O Neg [id number]) UNIT NUMBER (test code = [id number] 934-0) Status (test code = 3592965) TX_TIMEINCHART Blood Bank Product (test code RED BLOOD CELLS = 2263) PRODUCT CODE (test code = I8578W06 933-2) [facility] CenterPrep[facility] [id number] 23:54:00 Test Item Value Reference Range Interpretation Comments CROSSMATCH (test code = 2264) COMPATIBLE Unit ABO (test code = O Neg 8886524) UNIT NUMBER (test code = [id number] 934-0) Status (test code = 3360386) TX_TIMEINCHART Blood Bank Product (test code RED BLOOD CELLS = 2263) PRODUCT CODE (test code = [id number] 933-2) [facility] CenterPrep[facility] Leuko-Red [id number] 23:54:00 Test Item Value Reference Range Interpretation Comments CROSSMATCH (test code = 2264) COMPATIBLE Unit ABO (test code = O Neg 8999320) UNIT NUMBER (test code = [id number] 934-0) Status (test code = 3915197) TX_TIMEINCHART Blood Bank Product (test code RED BLOOD CELLS = 2263) PRODUCT CODE (test code = [id number] 933-2) [facility] CenterHGB/HCT (H&H)-Stat [id number] 21:11:00 Test Item Value Reference Range Interpretation Comments Hemoglobin (test code = 7.8 See_Comment L [Au tomated message] 786-4) The system [employer] generated this result transmitted ref erence range: 13.0 - 1 6.8 GM/DL. The refe rence range was not u sed to interpret this result as normal/abnor mal. Hematocrit (test code = 23.0 % 40-50 L 4544-3) Lab Interpretation (test Abnormal code = 23973-7) [facility] (H&H)-Stat [id number] 21:11:00 Test Item Value Reference Range Interpretation Comments Hemoglobin (test code = 7.8 See_Comment L [Au tomated message] 786-4) The system [employer] generated this result transmitted ref erence range: 13.0 - 1 6.8 GM/DL. The refe rence range was not u sed to interpret this result as normal/abnor mal. Hematocrit (test code = 23.0 % 40-50 L 4544-3) Lab Interpretation (test Abnormal code = 57620-8) [facility] ([facility]&H)-Stat [id number] 21:11:00 Test Item Value Reference Range Interpretation Comments Hemoglobin (test code = 7.8 See_Comment L [Au tomated message] 786-4) The system [employer] generated this result transmitted ref erence range: 13.0 - 1 6.8 GM/DL. The refe rence range was not u sed to interpret this result as normal/abnor mal. Hematocrit (test code = 23.0 % 40-50 L 4544-3) Lab Interpretation (test Abnormal code = 62801-9) [facility] CenterBL[facility]OD GAS, [id number] 21:11:00 Test Item Value Reference Range Interpretation [...] = 1819) 35.0 HGB/HCT (H&H) - STAT [id number] 21:11:00 Test Item Value Reference Range Interpretation Comments HEMOGLOBIN (BEAKER) (test code = 7.8 GM/DL 13.0-16.8 L 410) HEMATOCRIT (BEAKER) (test code = 23.0 % 40.0-50.0 L 411) Glucose-Stat [id number] 21:10:00 Test Item Value Reference Range Interpretation Comments Glucose (test code = 2345-7) 106 mg/dL 70-110 Lab Interpretation (test code = Normal 85247-8) [facility] [id number] 21:10:00 Test Item Value Reference Range Interpretation Comments Sodium (test code = 2951-2) 135 meq/L 136-145 L Lab Interpretation (test code = Abnormal 37741-2) [facility] CenterPotassium-Stat [id number] 21:10:00 Test Item Value Reference Range Interpretation Comments Potassium (test code = 2823-3) 3.8 meq/L 3.6-5.5 Lab Interpretation (test code = Normal 10711-8) [facility] [id number] 21:10:00 Test Item Value Reference Range Interpretation Comments Glucose (test code = 2345-7) 106 mg/dL 70-110 Lab Interpretation (test code = Normal 82032-9) [facility] [id number] 21:10:00 Test Item Value Reference Range Interpretation Comments Sodium (test code = 2951-2) 135 meq/L 136-145 L Lab Interpretation (test code = Abnormal 80362-0) [facility] [id number] 21:10:00 Test Item Value Reference Range Interpretation Comments Potassium (test code = 2823-3) 3.8 meq/L 3.6-5.5 Lab Interpretation (test code = Normal 22407-7) [facility] [id number] 21:10:00 Test Item Value Reference Range Interpretation Comments Glucose (test code = 2345-7) 106 mg/dL 70-110 Lab Interpretation (test code = Normal 68603-6) [facility] [id number] 21:10:00 Test Item Value Reference Range Interpretation Comments Sodium (test code = 2951-2) 135 meq/L 136-145 L Lab Interpretation (test code = Abnormal 12083-3) [facility] [id number] 21:10:00 Test Item Value Reference Range Interpretation Comments Potassium (test code = 2823-3) 3.8 meq/L 3.6-5.5 Lab Interpretation (test code = Normal 13453-2) [facility] [id number] 21:10:00 Test Item Value Reference Range Interpretation Comments GLUCOSE RANDOM (BEAKER) (test code 106 mg/dL 70-110 = 652) SODIUM NA-STAT [id number] 21:10:00 Test Item Value Reference Range Interpretation Comments SODIUM (BEAKER) (test code = 381) 135 meq/L 136-145 L POTASSIUM-STAT [id number] 21:10:00 Test Item Value Reference Range Interpretation Comments POTASSIUM (BEAKER) (test code = 3.8 meq/L 3.6-5.5 379) BASIC METABOLIC [id number] 19:47:00 Test Item Value Reference Range Interpretation [...] S NOT APPLICABLE FOR DIALYSIS PATIEN TS. Forming Machine Upkeep Mechanic ID - [id number] 19:47:00 Test Item Value Reference Range Interpretation Comments MAGNESIUM (BEAKER) (test code = 1.8 mg/dL 1.6-2.6 627) Forming Machine Upkeep Mechanic ID - DBPROTHROMBIN TIME/[id number] 19:36:00 Test Item Value Reference Range Interpretation Comments PROTIME (BEAKER) 19.1 seconds 11.9-14.2 H (test code = 759) INR (BEAKER) (test 1.63 See_Comment [Automat ed message] code = 370) The system [employer] generated this result transmitted ref erence range: <=5.90. The reference range was not used to int erpret this result as normal/abnormal . RECOMMENDED COUMADIN/WARFARIN INR THERAPY RANGESSTANDARD DOSE: 2.0 - 3.0 Includes: PROPHYLAXIS for venous thrombosis, systemic embolization; TREATMENT for venous thrombosis and/or pulmonary embolus.HIGH RISK: Target INR is 2.5-3.5 for patients with mechanical heart valves.CALCIUM, [id number] 19:26:00 Test Item Value Reference Range Interpretation Comments CALCIUM IONIZED (BEAKER) (test 1.15 mmol/L 1.12-1.27 code = 698) PH, BLOOD (BEAKER) (test code = 7.50 1810) POCT-GLUCOSE [id number] 18:48:00 Test Item Value Reference Range Interpretation Comments POC-GLUCOSE METER 94 mg/dL 70-110 : TESTED A T [facility] 6720 (BEAKER) (test code = NORM Tenorio [facility], 1538) 83294: Forming Machine Upkeep Mechanic/Techni won ID = [id number] for Paige Almaraz POCT-GLUCOSE [id number] 12:38:00 Test Item Value Reference Range Interpretation Comments POC-GLUCOSE METER 111 mg/dL 70-110 H : TESTED A T [facility] 6720 (BEAKER) (test code = [facility] Jona [facility], 153) 93624: Forming Machine Upkeep Mechanic/Techni won ID = [id number] for Paige Russell PROTHROMBIN TIME/[id number] 12:37:00 Test Item Value Reference Range Interpretation Comments PROTIME (BEAKER) 19.6 seconds 11.9-14.2 H (test code = 759) INR (BEAKER) (test 1.68 See_Comment [Automat ed message] code = 370) The system [employer] generated this result transmitted ref erence range: <=5.90. The reference range was not used to int erpret this result as normal/abnormal . RECOMMENDED COUMADIN/WARFARIN INR THERAPY RANGESSTANDARD DOSE: 2.0 - 3.0 Includes: PROPHYLAXIS for venous thrombosis, systemic embolization; TREATMENT for venous thrombosis and/or pulmonary embolus.HIGH RISK: Target INR is 2.5-3.5 for patients with mechanical heart valves.POCT-GLUCOSE [id number] 06:19:00 Test Item Value Reference Range Interpretation Comments POC-GLUCOSE METER 100 mg/dL 70-110 : TESTED A T [facility] 6720 (BEAKER) (test code = [facility] Jona [facility], 153) 43939: Forming Machine Upkeep Mechanic/Techni won ID = [id number] for VINOD CHAUDHARY BLOOD GAS, [id number] 05:07:00 Test Item Value Reference Range Interpretation [...] 1819) 60.0 RAD, CHEST, 1 VIEW, NON [id number] 04:36:00Reason for exam:- >intubatedShould this be performed at the bedside?->Yes [facility] 1975 Sex: MFINAL [...] effusions. There is no pneumothorax. Signed:Buck Warren MDReport Verified Date/Time: 01/30/2021 04:36:28 BASIC METABOLIC [id number] 02:59:00 Test Item Value Reference Range Interpretation [...] S NOT APPLICABLE FOR DIALYSIS PATIEN TS. Forming Machine Upkeep Mechanic ID - [id number] 02:45:00 Test Item Value Reference Range Interpretation Comments MAGNESIUM (BEAKER) (test code = 2.1 mg/dL 1.6-2.6 627) Forming Machine Upkeep Mechanic ID - [id number] 02:45:00 Test Item Value Reference Range Interpretation Comments PHOSPHORUS (BEAKER) (test code = 4.6 mg/dL 2.3-4.7 604) Forming Machine Upkeep Mechanic ID - [id number] 02:42:00 Test Item Value Reference Range Interpretation Comments PARTIAL THROMBOPLASTIN TIME 44.4 seconds 22.5-36.0 H (BEAKER) (test code = 760) [id number] 02:42:00 Test Item Value Reference Range Interpretation [...] 2.5-3.5 for patients with mechanical heart valves.PROTHROMBIN TIME/[id number] 02:41:00 Test Item Value Reference Range Interpretation Comments PROTIME (BEAKER) 20.9 seconds 11.9-14.2 H (test code = 759) INR (BEAKER) (test 1.83 See_Comment [Automat ed message] code = 370) The system [employer] generated this result transmitted ref erence range: <=5.90. The reference range was not used to int erpret this result as normal/abnormal . RECOMMENDED COUMADIN/WARFARIN INR THERAPY RANGESSTANDARD DOSE: 2.0 - 3.0 Includes: PROPHYLAXIS for venous thrombosis, systemic embolization; TREATMENT for venous thrombosis and/or pulmonary embolus.HIGH RISK: Target INR is 2.5-3.5 for patients with mechanical heart valves.LACTIC ACID, [id number] 02:40:00 Test Item Value Reference Range Interpretation Comments LACTATE BLOOD ARTERIAL (2) 0.6 mmol/L 0.5-2.2 (BEAKER) (test code = 2874) Forming Machine Upkeep Mechanic ID - DBCALCIUM, [id number] 02:34:00 Test Item Value Reference Range Interpretation Comments CALCIUM IONIZED (BEAKER) (test 1.15 mmol/L 1.12-1.27 code = 698) PH, BLOOD (BEAKER) (test code = 7.47 1810) BLOOD GAS, [id number] 02:34:00 Test Item Value Reference Range Interpretation [...] 1819) 50.0 CBC W/PLT COUNT & AUTO [id number] 02:33:00 Test Item Value Reference Range Interpretation [...] (BEAKER) (test code = 2801) Oxygen saturation, [id number] 02:32:00 Test Item Value Reference Range Interpretation Comments O2 Saturation (Measured) (test code = 66.8 % 45645-1) [facility], [id number] 02:32:00 Test Item Value Reference Range Interpretation Comments O2 Saturation (Measured) (test code = 66.8 % 44288-9) [facility] CenterO[facility] saturation, [id number] 02:32:00 Test Item Value Reference Range Interpretation Comments O2 Saturation (Measured) (test code = 66.8 % 30508-4) [facility] CenterOXYGEN SATURATION, [id number] 02:32:00 Test Item Value Reference Range Interpretation Comments O2 SATURATION (MEASURED) (BEAKER) 66.8 % (test code = 1455) CT, BRAIN, WITHOUT [id number] 02:20:00Unlisted Reason for Exam - Click Yes and Enter Reason Below->No [facility] 1975 Sex: MFINAL [...] base internal carotid arteries as well as thevertebral arteries demonstrate normal flow-related enhancement.The dural venous sinuses are patent.There is no vessel occlusion or flow-limiting stenosis.There is no aneurysm. IMPRESSION: Noncontrast CT head:Small volume left parietal subarachnoid hemorrhage, not significantly changed.Mild white matter microvascular ischemic changes.Chronic infarcts as described. CTA head:No intracranial aneurysm. Signed: Buck Warren [facility] Verified Date/Time: 01/30/2021 02:20:02 [facility] [id number] 02:20:00Unlisted Reason for Exam - Click Yes and Enter Reason Below->YesUnlisted Reason for Exam->r/o m ycotic anuerysmKAISER [facility]OUND[facility]ITALName: [facility]UR : 1975 Sex: MFINAL [...] head:No intracranial aneurysm. Sign ed: Buck Warren [facility] Verified Date/Time: 01/30/2021 02:20:02 [facility] [place] [place] [id number] 02:20:00Interface, External Ris In - 01/30/2021 2:23 [...] Buck Warren MDReport Verified Date/Time: 01/30/2021 02:20:02 [facility] 2021-01-30 02:20:00Interface, External [...] Buck Warren MDReport Verified Date/Time: 01/30/2021 02:20:02 [facility] [id number] 02:20:00 Interface, External Ris In - 01/30/2021 [...] Buck Warren MDReport Verified Date/Time: 01/30/2021 02:20:02 [facility] 2021-01-30 02:20:00Interface, External [...] CTA head:No intracranial aneurysm. Signed: Buck Warren MDRort Verified Date/Time: 01/30/2021 02:20:02 [facility]CT[facility] [id number] 02:20:00 Interface, External Ris In - 01/30/2021 [...] Buck Warren MDReport Verified Date/Time: 01/30/2021 02:20:02 [facility] contrast 2021-01-30 02:20:00Interface, External [...] CTA head:No intracranial aneurysm. Signed: Buck Warren MDRthe [facility] [place] Verified Date/Time: 01/30/2021 02:20:02 [facility] CenterPO[facility]GLUCOSE [id number] 23:30:00 Test Item Value Reference Range Interpretation Comments POC-GLUCOSE METER 107 mg/dL 70-110 : TESTED A T [facility] 6720 (BEAKER) (test code = NORM [place], 1538) 18896: Forming Machine Upkeep Mechanic/Techni won ID = [id number] for MARITZA ELISEO VINOD CBC W/PLT COUNT & AUTO [id number] 19:35:00 Test Item Value Reference Range Interpretation [...] PERCENT (BEAKER) (test code = 2801) POCT-GLUCOSE [id number] 18:16:00 Test Item Value Reference Range Interpretation Comments POC-GLUCOSE METER 99 mg/dL 70-110 : TESTED A T [facility] 6720 (BEAKER) (test code = RAYMONJOBY [place], 1538) 88983: Forming Machine Upkeep Mechanic/Techni won ID = [id number] for RONAL BROCK PROTHROMBIN TIME/[id number] 18:16:00 Test Item Value Reference Range Interpretation Comments PROTIME (BEAKER) 21.4 seconds 11.9-14.2 H (test code = 759) INR (BEAKER) (test 1.89 See_Comment [Automat ed message] code = 370) The system [employer] generated this result transmitted ref erence range: <=5.90. The reference range was not used to int erpret this result as normal/abnormal . RECOMMENDED COUMADIN/WARFARIN INR THERAPY RANGESSTANDARD DOSE: 2.0 - 3.0 Includes: PROPHYLAXIS for venous thrombosis, systemic embolization; TREATMENT for venous thrombosis and/or pulmonary embolus.HIGH RISK: Target INR is 2.5-3.5 for patients with mechanical heart valves.PROTHROMBIN TIME/[id number] 15:23:00 Test Item Value Reference Range Interpretation Comments PROTIME (BEAKER) 21.5 seconds 11.9-14.2 H (test code = 759) INR (BEAKER) (test 1.90 See_Comment [Automat ed message] code = 370) The system [employer] generated this result transmitted ref erence range: <=5.90. The reference range was not used to int erpret this result as normal/abnormal . RECOMMENDED COUMADIN/WARFARIN INR THERAPY RANGESSTANDARD DOSE: 2.0 - 3.0 Includes: PROPHYLAXIS for venous thrombosis, systemic embolization; TREATMENT for venous thrombosis and/or pulmonary embolus.HIGH RISK: Target INR is 2.5-3.5 for patients with mechanical heart valves.[id number] 15:23:00 Test Item Value Reference Range Interpretation Comments PARTIAL THROMBOPLASTIN TIME 52.7 seconds 22.5-36.0 H (BEAKER) (test code = 760) [facility], [id number] 14:38:00 Test Item Value Reference Range Interpretation Comments ABO Grouping (test O Anti-A 0, Anti-B 0, A1 4+, code = 2588) B 4+, Anti D 4+ . Typing as O positive due to multiple transfusions of O positive RBC due to O ne g RBC shortage. Rh Factor (test code = NEG 2589) [facility], [id number] 14:38:00 Test Item Value Reference Range Interpretation Comments ABO Grouping (test O Anti-A 0, Anti-B 0, A1 4+, code = 2588) B 4+, Anti D 4+ . Typing as O positive due to multiple transfusions of O positive RBC due to O ne g RBC shortage. Rh Factor (test code = NEG 2589) [facility], [id number] 14:38:00 Test Item Value Reference Range Interpretation Comments ABO Grouping (test O Anti-A 0, Anti-B 0, A1 4+, code = 2588) B 4+, Anti D 4+ . Typing as O positive due to multiple transfusions of O positive RBC due to O ne g RBC shortage. Rh Factor (test code = NEG 2589) [facility] CenterType and screen, [id number] 14:32:00 Test Item Value Reference Range Interpretation Comments Ab Scrn (test code = 890-4) NEGATIVE [facility] CenterType and screen, [id number] 14:32:00 Test Item Value Reference Range Interpretation Comments Ab Scrn (test code = 890-4) NEGATIVE [facility] CenterType [facility] screen, [id number] 14:32:00 Test Item Value Reference Range Interpretation Comments Ab Scrn (test code = 890-4) NEGATIVE [facility] CenterPOCT-GLUCOSE [id number] 14:30:00 Test Item Value Reference Range Interpretation Comments POC-GLUCOSE METER 105 mg/dL 70-110 : TESTED Elias Dominguez [facility] 6720 (TAMARA) (test code = NORM [place], 1538) 76090: Forming Machine Upkeep Mechanic/Techni won ID = [id number] for RONAL PEREZ CT, BRAIN, WITHOUT [id number] 10:14:00Unlisted Reason for Exam - Click Yes and Enter Reason Below->No [facility] : 1975 Sex: MAddendum BeginsREPORT STATUS:A The findings were discussed with SOURAV Bryan on 01/29/2021 10:13 AM. Signed: Ankitarmidamarleny Celso MDRepting Verified Date/Time: 01/29/2021 10:14:[address], BRAIN, WITHOUT CONTRAST INDICATION: Ataxia, stroke suspectedTECHNIQUE: Noncontrast axial imaging was obtained from the vertex to the skull base. Axial images were reconstructed using a bone algorithm. DOSE REDUCTION: Dose modulation, iterative reconstruction, and/or weight-based adjustment of the mA/kV was utilized to reduce the radiation dose to as low as reasonably achievable. COMPARISON: None. FINDINGS: Intracranial: Small volume subarachnoid hemorrhage inthe left parietal sulci. No significant mass effect. No evidence of acute territorial infarct. No hydrocephalus. Age-indeterminate lacunar infarct within the left thalamus. Generalized cerebral atrophywith ex vacuo dilatation of the ventricular system proportionate to sulci. Scattered foci of hypoatte nuation within the periventricular and subcortical white matter are a nonspecific finding commonly attributed to chronic small vessel ischemic disease. Prominent pineal region calcification. Osseous structures: No fracture. No suspicious lesion. Paranasal sinuses and mastoid air cells: No evidence of s inusitis. Mastoids are clear. Orbital contents: Globes are intact. IMPRESSION: Small volume left parietal subarachnoid hemorrhage. Addendum will be made to this report upon successful communication with the ordering physician. Signed: Celso Fernandes Verified Date/Time: 01/29/2021 10:07:24 [id number] 09:36:00 Test Item Value Reference Range Interpretation [...] patients with mechanical heart valves.Red blood cell [id number] 09:29:00 Test Item Value Reference Range Interpretation Comments RBC (test code = 2.37 See_Comment L [Automated 187-1) message] The system which generated this result transmit ari reference range : 4.63 - 6.08 M/ L. The reference range was not u sed to interpret th is result as normal/abnormal . CARLEY (test code = CARLEY) Forming Machine Upkeep Mechanic ID - [id number] ID - [id number] Lab Interpretation Abnormal (test code = 09498-7) [facility] CenterRed blood cell [id number] 09:29:00 Test Item Value Reference Range Interpretation Comments RBC (test code = 2.37 See_Comment L [Automated 294-5) message] The system which generated this result transmit ari reference range : 4.63 - 6.08 M/ L. The reference range was not u sed to interpret th is result as normal/abnormal . CARLEY (test code = CARLEY) Forming Machine Upkeep Mechanic ID - [id number] ID - [id number] Lab Interpretation Abnormal (test code = 56739-2) [facility] CenterRed blood cell [id number] 09:29:00 Test Item Value Reference Range Interpretation Comments RBC (test code = 2.37 See_Comment L [Automated 789-8) message] The system which generated this result transmit ari reference range : 4.63 - 6.08 M/ L. The reference range was not u sed to interpret th is result as normal/abnormal . CARLEY (test code = CARLEY) Forming Machine Upkeep Mechanic ID - [id number] ID - [id number] Lab Interpretation Abnormal (test code = 56120-2) [facility] CenterRED BLOOD CELL [id number] 09:29:00 Test Item Value Reference Range Interpretation Comments RED BLOOD CELL COUNT (BEAKER) (test 2.37 M/ L 4.63-6.08 L code = 761) Forming Machine Upkeep Mechanic ID - [id number] ID - [id number] [id number] 08:25:00 Test Item Value Reference Range Interpretation Comments Digoxin Lvl (test code = 1.06 ng/mL 0.8-2 91816-9) CARLEY (test code = CARLEY) Forming Machine Upkeep Mechanic ID - SIMA W Lab Interpretation (test Normal code = 01355-3) [facility] CenterDigoxin [id number] 08:25:00 Test Item Value Reference Range Interpretation Comments Digoxin Lvl (test code = 1.06 ng/mL 0.8-2 67791-1) CARLEY (test code = CARLEY) Forming Machine Upkeep Mechanic ID - SIMA W Lab Interpretation (test Normal code = 12403-8) [facility] CenterDigoxin [id number] 08:25:00 Test Item Value Reference Range Interpretation Comments Digoxin Lvl (test code = 1.06 ng/mL 0.8-2 64986-6) CARLEY (test code = CARLEY) Forming Machine Upkeep Mechanic ID - SIMA W Lab Interpretation (test Normal code = 96140-7) [facility] CenterDIGOXIN [id number] 08:25:00 Test Item Value Reference Range Interpretation Comments DIGOXIN LEVEL (BEAKER) (test code 1.06 ng/mL 0.80-2.00 = 669) Forming Machine Upkeep Mechanic ID - SIMA WPOCT-GLUCOSE [id number] 07:31:00 Test Item Value Reference Range Interpretation Comments POC-GLUCOSE METER 97 mg/dL 70-110 : TESTED A T [facility] 6720 (BEAKER) (test code = NORM Tenorio [facility], 1538) 04125: Forming Machine Upkeep Mechanic/Techni won ID = [id number] for RONAL BROCK [id number] 07:26:00 Test Item Value Reference Range Interpretation Comments PARTIAL THROMBOPLASTIN TIME 35.6 seconds 22.5-36.0 (BEAKER) (test code = 760) CBC W/PLT COUNT & AUTO [id number] 07:23:00 Test Item Value Reference Range Interpretation [...] (BEAKER) (test code = 2801) Hepatic function [id number] 07:21:00 Test Item Value Reference Range Interpretation Comments Protein, Total (test 5.6 See_Comment L [Autom ated code = 2885-2) message] The system which generated this result transmit ari reference range : 6.0 - 8.3 gm/dL . The reference range was not u sed to interpret th is result as normal/abnormal . Albumin (test code = 2.3 g/dL 3.5-5 L 48269-4) Total Bilirubin (test 0.6 mg/dL 0.2-1.2 code = 1975-2) Bilirubin, Direct 0.5 mg/dL 0.1-0.5 (test code = 1968-7) Alkaline Phosphatase 134 U/L 40-150 (test code = 6768-6) AST (test code = 39 U/L 5-34 H 1920-8) ALT (test code = 125 U/L 6-55 H 1742-6) CARLEY (test code = CARLEY) Forming Machine Upkeep Mechanic ID - KENNETH Leon Lab Interpretation Abnormal (test code = 72089-7) [facility] CenterHepatic function [id number] 07:21:00 Test Item Value Reference Range Interpretation Comments Protein, Total (test 5.6 See_Comment L [Autom ated code = 2885-2) message] The system which generated this result transmit ari reference range : 6.0 - 8.3 gm/dL . The reference range was not u sed to interpret th is result as normal/abnormal . Albumin (test code = 2.3 g/dL 3.5-5 L 55871-8) Total Bilirubin (test 0.6 mg/dL 0.2-1.2 code = 1974-2) Bilirubin, Direct 0.5 mg/dL 0.1-0.5 (test code = 1967-) Alkaline Phosphatase 134 U/L 40-150 (test code = 6768-6) AST (test code = 39 U/L 5-34 H 1920-8) ALT (test code = 125 U/L 6-55 H 174-6) CARLEY (test code = CARLEY) Forming Machine Upkeep Mechanic ID - KENNETH W Lab Interpretation Abnormal (test code = 17242-6) [facility] CenterHepatic function [id number] 07:21:00 Test Item Value Reference Range Interpretation Comments Protein, Total (test 5.6 See_Comment L [Autom ated code = 2885-2) message] The system which generated this result transmit rai reference range : 6.0 - 8.3 gm/dL . The reference range was not u sed to interpret th is result as normal/abnormal . Albumin (test code = 2.3 g/dL 3.5-5 L 21221-2) Total Bilirubin (test 0.6 mg/dL 0.2-1.2 code = 1974-2) Bilirubin, Direct 0.5 mg/dL 0.1-0.5 (test code = 1967-) Alkaline Phosphatase 134 U/L 40-150 (test code = 6768-6) AST (test code = 39 U/L 5-34 H 1920-8) ALT (test code = 125 U/L 6-55 H 174-6) CARLEY (test code = CARLEY) Forming Machine Upkeep Mechanic ID - KENNETH W Lab Interpretation Abnormal (test code = 27672-7) [facility] CenterBASIC METABOLIC [id number] 07:21:00 Test Item Value Reference Range Interpretation [...] S NOT APPLICABLE FOR DIALYSIS PATIEN TS. Forming Machine Upkeep Mechanic ID - KENNETH [id number] 07:21:00 Test Item Value Reference Range Interpretation Comments MAGNESIUM (BEAKER) (test code = 2.0 mg/dL 1.6-2.6 627) Forming Machine Upkeep Mechanic ID - KENNETH [id number] 07:21:00 Test Item Value Reference Range Interpretation Comments PHOSPHORUS (BEAKER) (test code = 3.7 mg/dL 2.3-4.7 604) Forming Machine Upkeep Mechanic ID - KENNETH WHEPATIC FUNCTION [id number] 07:21:00 Test Item Value Reference Range Interpretation [...] code = 125 U/L 6-55 H 347) Forming Machine Upkeep Mechanic ID - KENNETH WLACTIC ACID, [id number] 07:18:00 Test Item Value Reference Range Interpretation Comments LACTATE BLOOD 0.7 mmol/L 0.5-2.2 Specimen sligh tly ARTERIAL (2) (BEAKER) hemoly zed (test code = 2874) Forming Machine Upkeep Mechanic ID - KENNETH WBLOOD GAS, [id number] 06:44:00 Test Item Value Reference Range Interpretation [...] (BEAKER) (test code = 1819) 70.0 CALCIUM, [id number] 06:42:00 Test Item Value Reference Range Interpretation Comments CALCIUM IONIZED (BEAKER) (test 1.13 mmol/L 1.12-1.27 code = 698) PH, BLOOD (BEAKER) (test code = 7.50 1810) OXYGEN SATURATION, [id number] 06:41:00 Test Item Value Reference Range Interpretation Comments O2 SATURATION (MEASURED) (BEAKER) 74.5 % (test code = 1455) RAD, CHEST, 1 VIEW, NON [id number] 04:31:00Reason for exam:- >intubatedShould this be performed at the bedside?->Yes [facility] 1975 Sex: MFINAL [...] no pneumothorax. Signed: Buck Warren Verified Date/Time: 01/29/2021 04:31:34 POCT-GLUCOSE [id number] 00:55:00 Test Item Value Reference Range Interpretation Comments POC-GLUCOSE METER 116 mg/dL 70-110 H : TESTED A T [facility] 6720 ([facility]) (test code = NORM Tenorio [facility], 1538) 46361: Forming Machine Upkeep Mechanic/Techni won ID = [id number] for VINOD CHAUDHARY [id number] 18:45:00 Test Item Value Reference Range Interpretation Comments Potassium (test code = 3.9 meq/L 3.5-5.1 2823-3) CARLEY (test code = CARLEY) Forming Machine Upkeep Mechanic ID - DB Lab Interpretation (test Normal code = 30375-7) [facility] Test Item Value Reference Range Interpretation Comments Sodium (test code = 2951-2) 137 meq/L 136-145 CARLEY (test code = CARLEY) Forming Machine Upkeep Mechanic ID - DB Lab Interpretation (test Normal code = 32309-7) [facility] Test Item Value Reference Range Interpretation Comments Potassium (test code = 3.9 meq/L 3.5-5.1 2823-3) CARLEY (test code = CARLEY) Forming Machine Upkeep Mechanic ID - DB Lab Interpretation (test Normal code = 12171-4) [facility]00 Test Item Value Reference Range Interpretation Comments Sodium (test code = 2951-2) 137 meq/L 136-145 CARLEY (test code = CARLEY) Forming Machine Upkeep Mechanic ID - DB Lab Interpretation (test Normal code = 35617-3) [facility] 18:[facility]00 Test Item Value Reference Range Interpretation Comments Potassium (test code = 3.9 meq/L 3.5-5.1 2823-3) CARLEY (test code = CARLEY) Forming Machine Upkeep Mechanic ID - DB Lab Interpretation (test Normal code = 14843-2) [facility] [id number] 18:45:00 Test Item Value Reference Range Interpretation Comments Sodium (test code = 2951-2) 137 meq/L 136-145 CARLEY (test code = CARLEY) Forming Machine Upkeep Mechanic ID - DB Lab Interpretation (test Normal code = 70504-8) [facility] 18:45:00 Test Item Value Reference Range Interpretation Comments MAGNESIUM (BEAKER) (test code = 1.9 mg/dL 1.6-2.6 627) Forming Machine Upkeep Mechanic ID - [id number] 18:45:00 Test Item Value Reference Range Interpretation Comments PHOSPHORUS (BEAKER) (test code = 2.7 mg/dL 2.3-4.7 604) Forming Machine Upkeep Mechanic ID - [id number] 18:45:00 Test Item Value Reference Range Interpretation Comments POTASSIUM (BEAKER) (test code = 3.9 meq/L 3.5-5.1 379) Forming Machine Upkeep Mechanic ID - [id number] 18:45:00 Test Item Value Reference Range Interpretation Comments SODIUM (BEAKER) (test code = 381) 137 meq/L 136-145 Forming Machine Upkeep Mechanic ID - DBRAD, CHEST, 1 VIEW, NON [id number] 18:36:00Reason for exam:- >Hypoxia, eval chest tubeShould this be performed at the bedside?->Yes [facility] 1975 Sex: MFINAL [...] IMPRESSION:No significant interval change. Signed: Luz Pierre MDReport Verified Date/Time: 01/28/2021 18:36:09 Reading Location: [facility] C013Y CT Body Reading Room POCT-GLUCOSE [id number] 18:29:00 Test Item Value Reference Range Interpretation Comments POC-GLUCOSE METER 91 mg/dL 70-110 : TESTED A T [facility] 6720 (BEAKER) (test code = NORM Tenorio [facility], 1538) [address]: Forming Machine Upkeep Mechanic/Techni won ID = [id number] for RONAL BROCK BLOOD GAS, [id number] 18:20:00 Test Item Value Reference Range Interpretation [...] (BEAKER) (test code = 1819) 100.0 HEMODIALYSIS [id number] 12:55:00Kimmy Mitchell RN 01/28/2021 12:55 PMLab Results Component Value Date WBC 12.6 (H) 01/28/2021 HGB 7.5 (L) 01/28/2021 HCT 23.9 (L) 01/28/2021 MCV 93.4 (H) 01/28/2021 PLT 121 (L) 01/28/2021 Lab Results Component Value Date GLUCOSE 114 (H) 01/28/2021 CALCIUM 8.9 01/28/2021 NA 135 (L) 01/28/2021 K 4.5001/28/2021 CO2 27 01/28/2021 CL 103 01/28/2021 BUN 35 (H) 01/28/2021 CREATININE 2.83 (H) 01/28/2021 Lab Results Component Value Date HEPBSAG Nonreactive 01/14/2021 HD X 4 hours completed via right IJ tunneled catheter. Net UF -3.5L. Hypertensive during treatment. Scheduled metoprolol and prn labetalolgiven during treatment with minimal effect. Report given to primary RN. Kimmy Mitchell RNSt. Mary Medical CenterHEMODIALYSIS [id number] 12:55:00Kimmy Mitchell RN 01/28/2021 12:55 PMLab Results Component Value Date WBC 12.6 (H) 01/28/2021 HGB 7.5 (L) 01/28/2021 HCT 23.9 (L) 01/28/2021 MCV 93.4 (H) 01/28/2021 PLT 121 (L) 01/28/2021 Lab Results Component Value Date GLUCOSE 114 (H) 01/28/2021 CALCIUM 8.9 01/28/2021 NA 135 (L) 01/28/2021 K 4.5001/28/2021 CO2 27 01/28/2021 CL 103 01/28/2021 BUN 35 (H) 01/28/2021 CREATININE 2.83 (H) 01/28/2021 Lab Results Component Value Date HEPBSAG Nonreactive 01/14/2021 HD X 4 hours completed via right IJ tunneled catheter. Net UF -3.5L. Hypertensive during treatment. Scheduled metoprolol and prn labetalolgiven during treatment with minimal effect. Report given to primary RN. JOSE Talbot [facility] [id number] 12:55:00Kimmy Mitchell RN 01/28/2021 12:55 PMLab Results [...] Report given to primary RN. JOSE Talbot [facility] HospitalPO[facility]-GLU[facility]SE [id number] 11:56:00 Test Item Value Reference Range Interpretation Comments POC-GLUCOSE METER 97 mg/dL 70-110 : TESTED A T [facility] 6720 (BEAKER) (test code = NORM Tenorio [facility], 1538) 88751: Forming Machine Upkeep Mechanic/Techni won ID = [id number] for RONAL BROCK PROTHROMBIN [id number] 09:33:00 Test Item Value Reference Range Interpretation Comments PROTIME (BEAKER) 19.1 seconds 11.9-14.2 H (test code = 759) INR (BEAKER) (test 1.63 See_Comment [Automat ed message] code = 370) The system [employer] generated this result transmitted ref erence range: <=5.90. The reference range was not used to int erpret this result as normal/abnormal . RECOMMENDED COUMADIN/WARFARIN INR THERAPY RANGESSTANDARD DOSE: 2.0 - 3.0 Includes: PROPHYLAXIS for venous thrombosis, systemic embolization; TREATMENT for venous thrombosis and/or pulmonary embolus.HIGH RISK: Target INR is 2.5-3.5 for patients with mechanical heart valves.BASIC METABOLIC [id number] 09:07:00 Test Item Value Reference Range Interpretation [...] S NOT APPLICABLE FOR DIALYSIS PATIEN TS. Forming Machine Upkeep Mechanic ID - VALDEZ [id number] 09:07:00 Test Item Value Reference Range Interpretation Comments MAGNESIUM (BEAKER) (test code = 2.2 mg/dL 1.6-2.6 627) Forming Machine Upkeep Mechanic ID - VALDEZ [id number] 09:07:00 Test Item Value Reference Range Interpretation Comments PHOSPHORUS (BEAKER) (test code = 3.3 mg/dL 2.3-4.7 604) Forming Machine Upkeep Mechanic ID - VALDEZ MPROTHROMBIN TIME/[id number] 07:41:00 Test Item Value Reference Range Interpretation [...] for patients with mechanical heart valves.HEPATIC FUNCTION [id number] 06:56:00 Test Item Value Reference Range Interpretation [...] code = 184 U/L 6-55 H 347) Forming Machine Upkeep Mechanic ID - VALDEZ [id number] 06:56:00 Test Item Value Reference Range Interpretation Comments MAGNESIUM (BEAKER) (test code = 2.2 mg/dL 1.6-2.6 627) Forming Machine Upkeep Mechanic ID - VALDEZ [id number] 06:56:00 Test Item Value Reference Range Interpretation Comments PHOSPHORUS (BEAKER) (test code = 3.1 mg/dL 2.3-4.7 604) Forming Machine Upkeep Mechanic ID - VALDEZ [id number] 06:56:00 Test Item Value Reference Range Interpretation Comments POTASSIUM (BEAKER) (test code = 4.5 meq/L 3.5-5.1 379) Forming Machine Upkeep Mechanic ID - VALDEZ MRAD, CHEST, 1 VIEW, NON [id number] 06:36:00Reason for exam:->intubatedShould this be performed at the bedside?->Yes [facility] : 1975 Sex: MFINAL REPORT RAD, CHEST, 1 VIEW, NON DEPT INDICATION: intubated COMPARISON: Prior day's exam FINDINGS: Portable frontal view of the chest. IMPRESSION: Support Lines: Dialysis catheter tip overlies right atrium. Feeding tube descends below the diaphragm. Drainage tube overlies the leftpleura and upper abdomen. Lungs and pleura: Bilateral [...] (BEAKER) (test code = 2801) LACTIC ACID, [id number] 06:30:00 Test Item Value Reference Range Interpretation Comments LACTATE BLOOD ARTERIAL (2) 0.9 mmol/L 0.5-2.2 (BEAKER) (test code = 2874) Forming Machine Upkeep Mechanic ID - VALDEZ [id number] 06:29:00 Test Item Value Reference Range Interpretation Comments PARTIAL THROMBOPLASTIN TIME 37.9 seconds 22.5-36.0 H (BEAKER) (test code = 760) POCT-GLUCOSE [id number] 06:25:00 Test Item Value Reference Range Interpretation Comments POC-GLUCOSE METER 94 mg/dL 70-110 : TESTED A T [facility] 6720 (BEAKER) (test code = NORM [place], 1538) 725[address]: Forming Machine Upkeep Mechanic/Techni won ID = [id number] for Manuelito Busby OXYGEN SATURATION, [id number] 05:45:00 Test Item Value Reference Range Interpretation Comments O2 SATURATION (MEASURED) (BEAKER) 84.7 % (test code = 1455) BLOOD GAS, [id number] 05:43:00 Test Item Value Reference Range Interpretation [...] (BEAKER) (test code = 1819) 44.0 CALCIUM, [id number] 05:42:00 Test Item Value Reference Range Interpretation Comments CALCIUM IONIZED (BEAKER) (test 1.19 mmol/L 1.12-1.27 code = 698) PH, BLOOD (BEAKER) (test code = 7.47 1810) POCT-GLUCOSE [id number] 00:02:00 Test Item Value Reference Range Interpretation Comments POC-GLUCOSE METER 97 mg/dL 70-110 : TESTED A T [facility] 6720 (BEAKER) (test code = RAYMONJOBY Tenorio [facility], 1538) 07525: Forming Machine Upkeep Mechanic/Techni won ID = [id number] for Leonardo Busbylie RAD, CHEST, 1 VIEW, NON [id number] 21:24:00Reason for exam:- >tachypnea/assess left side hemothoraxShould this be performed at the bedside?->YesHOMA [facility] : 1975 Sex: MFINAL REPORT [...] Tissues and Bones: Unchanged. Signed: Delano Castro MDReportVerified Date/Time: 01/27/2021 21:24:57 Reading Location: [address] Transitional Reading Room LACTIC ACID, ARTERIAL 2021-01-27 21:23:00 Test Item Value Reference Range Interpretation Comments LACTATE BLOOD ARTERIAL (2) 1.1 mmol/L 0.5-2.2 (BEAKER) (test code = 2874) Forming Machine Upkeep Mechanic ID - GEMINI [id number] 21:12:00 Test Item Value Reference Range Interpretation Comments POTASSIUM (BEAKER) (test code = 4.5 meq/L 3.5-5.1 379) Forming Machine Upkeep Mechanic ID - CDPCBC (Hemogram only)2021-01-27 21:05:00 Test Item Value Reference Range Interpretation Comments WBC (test code = 6690-2) 12.5 See_Comment H [A utomated message] The system [employer] generated this result transmitted ref erence range: 3.5 - 10 .5 K/L. The refe rence range was not u sed to interpret this result as normal/abnor mal. RBC (test code = 789-8) 2.71 See_Comment L [Au tomated message] The system [employer] generated this result transmitted ref erence range: 4.63 - 6 .08 M/L. The refe rence range was not u sed to interpret this result as normal/abnor mal. MCHC (test code = 786-4) 32.4 See_Comment L [A utomated message] The system [employer] generated this result transmitted ref erence range: [...] L [Aut omated message] 777-3) The system [employer] generated this result transmitted ref erence range: 150 - 45 0 K/CU MM. The referen ce range was not u sed to interpret this result as normal/abnor mal. MPV (test code = 11.2 fL 9.4-12.4 13535-5) nRBC (test code = 413) 0 See_Comment [Aut omated message] The system [employer] generated this result transmitted ref erence range: 0 - 0 /1 00 WBC. The refere nce range was not u sed to interpret this result as normal/abnor mal. Lab Interpretation (test Abnormal code = 63508-3) [facility] (Hemogram only)2021-01-27 21:05:00 Test Item Value Reference Range Interpretation Comments WBC (test code = 6690-2) 12.5 See_Comment H [A utomated message] The system [employer] generated this result transmitted ref erence range: 3.5 - 10 .5 K/L. The refe rence range was not u sed to interpret this result as normal/abnor mal. RBC (test code = 789-8) 2.71 See_Comment L [Au tomated message] The system [employer] generated this result transmitted ref erence range: 4.63 - 6 .08 M/L. The refe rence range was not u sed to interpret this result as normal/abnor mal. MCHC (test code = 786-4) 32.4 See_Comment L [A utomated message] The system [employer] generated this result transmitted ref erence range: [...] L [Aut omated message] 777-3) The system [employer] generated this result transmitted ref erence range: 150 - 45 0 K/CU MM. The referen ce range was not u sed to interpret this result as normal/abnor mal. MPV (test code = 11.2 fL 9.4-12.4 36771-1) nRBC (test code = 413) 0 See_Comment [Aut omated message] The system [employer] generated this result transmitted ref erence range: 0 - 0 /1 00 WBC. The refere nce range was not u sed to interpret this result as normal/abnor mal. Lab Interpretation (test Abnormal code = 26423-5) [facility] (Hemogram only)2021-01-27 21:05:00 Test Item Value Reference Range Interpretation Comments WBC (test code = 6690-2) 12.5 See_Comment H [A utomated message] The system [employer] generated this result transmitted ref erence range: 3.5 - 10 .5 K/L. The refe rence range was not u sed to interpret this result as normal/abnor mal. RBC (test code = 789-8) 2.71 See_Comment L [Au tomated message] The system [employer] generated this result transmitted ref erence range: 4.63 - 6 .08 M/L. The refe rence range was not u sed to interpret this result as normal/abnor mal. MCHC (test code = 786-4) 32.4 See_Comment L [A utomated message] The system [employer] generated this result transmitted ref erence range: [...] L [Aut omated message] 777-3) The system [employer] generated this result transmitted ref erence range: 150 - 45 0 K/CU MM. The referen ce range was not u sed to interpret this result as normal/abnor mal. MPV (test code = 11.2 fL 9.4-12.4 48181-8) nRBC (test code = 413) 0 See_Comment [Aut omated message] The system [employer] generated this result transmitted ref erence range: 0 - 0 /1 00 WBC. The refere nce range was not u sed to interpret this result as normal/abnor mal. Lab Interpretation (test Abnormal code = 28432-9) [facility] (HEMOGRAM ONLY)2021-01-27 21:05:00 Test Item Value Reference [...] (BEAKER) (test code = 413) BLOOD GAS, [id number] 20:50:00 Test Item Value Reference Range Interpretation [...] FIO2 (BEAKER) (test code = 1819) 36.0 [id number] 18:51:00 Test Item Value Reference Range Interpretation Comments MAGNESIUM (BEAKER) (test code = 2.2 mg/dL 1.6-2.6 627) Forming Machine Upkeep Mechanic ID - [id number] 18:51:00 Test Item Value Reference Range Interpretation Comments PHOSPHORUS (BEAKER) (test code = 3.2 mg/dL 2.3-4.7 604) Forming Machine Upkeep Mechanic ID - [id number] 18:51:00 Test Item Value Reference Range Interpretation Comments POTASSIUM (BEAKER) (test code = 4.3 meq/L 3.5-5.1 379) Forming Machine Upkeep Mechanic ID - [id number] 18:51:00 Test Item Value Reference Range Interpretation Comments SODIUM (BEAKER) (test code = 381) 135 meq/L 136-145 L Forming Machine Upkeep Mechanic ID - [id number] 12:12:00 Test Item Value Reference Range Interpretation Comments MAGNESIUM (BEAKER) (test code = 2.1 mg/dL 1.6-2.6 627) Forming Machine Upkeep Mechanic ID - GEMINI [id number] 12:12:00 Test Item Value Reference Range Interpretation Comments PHOSPHORUS (BEAKER) (test code = 2.9 mg/dL 2.3-4.7 604) Forming Machine Upkeep Mechanic ID - GEMINI [id number] 12:12:00 Test Item Value Reference Range Interpretation Comments POTASSIUM (BEAKER) (test code = 4.4 meq/L 3.5-5.1 379) Forming Machine Upkeep Mechanic ID - GEMINI GUTIERREZOCT-GLUCOSE [id number] 11:53:00 Test Item Value Reference Range Interpretation Comments POC-GLUCOSE METER 91 mg/dL 70-110 : TESTED A T [facility] 6720 (BEAKER) (test code = NORM Jona [place], 1538) 732[address]: Forming Machine Upkeep Mechanic/Techni won ID = [id number] for RONAL BROCK DALIA, CHEST, 1 VIEW, NON [id number] 07:51:00Reason for exam:- >intubatedShould this be performed at the bedside?->Yes [facility] 1975 Sex: MFINAL [...] [place] Verified Date/Time: 01/27/2021 07:51:17 Reading Location: [facility] Diagnostic Imaging Reading Room - [place] [address] BASIC METABOLIC [id number] 07:12:00 Test Item Value Reference Range Interpretation [...] S NOT APPLICABLE FOR DIALYSIS PATIEN TS. Forming Machine Upkeep Mechanic ID - GEMINI FPROTHROMBIN [id number] 07:09:00 Test Item Value Reference Range Interpretation Comments PROTIME (BEAKER) 17.1 seconds 11.9-14.2 H (test code = 759) INR (BEAKER) (test 1.42 See_Comment [Automat ed message] code = 370) The system [employer] generated this result transmitted ref erence range: <=5.90. The reference range was not used to int erpret this result as normal/abnormal . RECOMMENDED COUMADIN/WARFARIN INR THERAPY RANGESSTANDARD DOSE: 2.0 - 3.0 Includes: PROPHYLAXIS for venous thrombosis, systemic embolization; TREATMENT for venous thrombosis and/or pulmonary embolus.HIGH RISK: Target INR is 2.5-3.5 for patients with mechanical heart valves.HEPATIC FUNCTION [id number] 04:21:00 Test Item Value Reference Range Interpretation [...] code = 248 U/L 6-55 H 347) Forming Machine Upkeep Mechanic ID - LINA [id number] 04:21:00 Test Item Value Reference Range Interpretation Comments MAGNESIUM (BEAKER) (test code = 2.1 mg/dL 1.6-2.6 627) Forming Machine Upkeep Mechanic ID - LINA [id number] 04:21:00 Test Item Value Reference Range Interpretation Comments PHOSPHORUS (BEAKER) (test code = 2.5 mg/dL 2.3-4.7 604) Forming Machine Upkeep Mechanic ID - LINA [id number] 04:21:00 Test Item Value Reference Range Interpretation Comments POTASSIUM (BEAKER) (test code = 4.0 meq/L 3.5-5.1 379) Forming Machine Upkeep Mechanic ID - LINA [id number] 04:14:00 Test Item Value Reference Range Interpretation Comments PARTIAL THROMBOPLASTIN TIME 35.4 seconds 22.5-36.0 (BEAKER) (test code = 760) LACTIC ACID, [id number] 04:05:00 Test Item Value Reference Range Interpretation Comments LACTATE BLOOD ARTERIAL (2) 0.9 mmol/L 0.5-2.2 (BEAKER) (test code = 2874) Forming Machine Upkeep Mechanic ID - PIAYA LCBC W/PLT COUNT & AUTO [id number] 03:58:00 Test Item Value Reference Range Interpretation [...] (BEAKER) (test code = 2801) BLOOD GAS, [id number] 03:52:00 Test Item Value Reference Range Interpretation [...] (test code = 1819) 100.0 OXYGEN SATURATION, [id number] 03:50:00 Test Item Value Reference Range Interpretation Comments O2 SATURATION (MEASURED) (BEAKER) 64.2 % (test code = 1455) CALCIUM, [id number] 03:50:00 Test Item Value Reference Range Interpretation Comments CALCIUM IONIZED (BEAKER) (test 1.15 mmol/L 1.12-1.27 code = 698) PH, BLOOD (BEAKER) (test code = 7.43 1810) Insert Arterial [id number] 23:51:37Jes Ramos NP 01/26/2021 11:56 PMInsert Arterial [...] to verify the correct patient, procedure, equipment, application support manager and site/side marked as required.Preparation: Patient was prepped and draped in the usual sterile fashion.Indications: multiple ABGs and hemodynamic monitoringLocation: left radialAnesthesia: local infiltration Anesthesia:Local Anesthetic: lidocaine 2% without epinephrine Sedation:Patient sedated: no Parish's test normal: yesNeedle gauge: 20Seldinger technique: Seldinger technique usedPost-procedure: line sutured and dressing appliedPost-procedure [facility] [id number] 23:51:37Jes Ramos NP 01/26/2021 11:56 PMInsert Arterial [...] to verify the correct patient, procedure, equipment, application support manager and site/side marked as required.Preparation: Patient was prepped and draped in the usual sterile fashion.Indications: multiple ABGs and hemodynamic monitoringLocation: left radialAnesthesia: local infiltration Anesthesia:Local Anesthetic: lidocaine 2% without epinephrine Sedation:Patient sedated: no Parish's test normal: yesNeedle gauge: 20Seldinger technique: Seldinger technique usedPost-procedure: line sutured and dressing appliedPost-procedure CMS: unchangedCH[facility] HospitalInsert Arterial [id number] 23:51:37Jes Ramos NP 01/26/2021 11:56 PMInsert Arterial [...] to verify the correct patient, procedure, equipment, application support manager and site/side marked as required.Preparation: Patient was prepped and draped in the usual sterile fashion.Indications: multiple ABGs and hemodynamic monitoringLocation: left radialAnesthesia: local infiltration Anesthesia:Local Anesthetic: lidocaine 2% without epinephrine Sedation:Patient sedated: no Parish's test normal: yesNeedle gauge: 20Seldinger technique: Seldinger technique usedPost-procedure: line sutured and dressing appliedPost-procedure CMS: unchangedCHI [facility] HospitalPOCT-GLUCOSE [id number] 22:14:00 Test Item Value Reference Range Interpretation Comments POC-GLUCOSE METER 107 mg/dL 70-110 : TESTED A T [facility] 6720 (BEAKER) (test code = NORM [place], 1538) [address]: Forming Machine Upkeep Mechanic/Techni won ID = [id number] for DO September BASIC METABOLIC [id number] 21:01:00 Test Item Value Reference Range Interpretation [...] S NOT APPLICABLE FOR DIALYSIS PATIEN TS. Forming Machine Upkeep Mechanic ID - [id number] 21:01:00 Test Item Value Reference Range Interpretation Comments MAGNESIUM (BEAKER) (test code = 2.2 mg/dL 1.6-2.6 627) Forming Machine Upkeep Mechanic ID - [id number] 21:01:00 Test Item Value Reference Range Interpretation Comments PHOSPHORUS (BEAKER) (test code = 2.0 mg/dL 2.3-4.7 L 604) Forming Machine Upkeep Mechanic ID - BSCALCIUM, [id number] 20:38:00 Test Item Value Reference Range Interpretation Comments CALCIUM IONIZED (BEAKER) (test 1.24 mmol/L 1.12-1.27 code = 698) PH, BLOOD (BEAKER) (test code = 7.43 1810) [id number] 17:42:00 Test Item Value Reference Range Interpretation Comments POTASSIUM (BEAKER) (test code = 4.2 meq/L 3.5-5.1 379) Forming Machine Upkeep Mechanic ID - BSPOCT-GLUCOSE [id number] 17:02:00 Test Item Value Reference Range Interpretation Comments POC-GLUCOSE METER 105 mg/dL 70-110 : TESTED A T [facility] 6720 (BEAKER) (test code = NORM [place], 1538) [address]: Forming Machine Upkeep Mechanic/Techni won ID = [id number] for DU MALORIEABRAN [id number] 12:47:00 Test Item Value Reference Range Interpretation Comments POTASSIUM (BEAKER) (test code = 4.3 meq/L 3.5-5.1 379) Forming Machine Upkeep Mechanic ID - JOJOPOCT-GLUCOSE [id number] 12:25:00 Test Item Value Reference Range Interpretation Comments POC-GLUCOSE METER 100 mg/dL 70-110 : TESTED A T [facility] 6720 (BEAKER) (test code = NORM Jona [place], 1538) [address]: Forming Machine Upkeep Mechanic/Techni won ID = [id number] for DU NLABRAN STERLING [id number] 08:42:00 Test Item Value Reference Range Interpretation Comments MAGNESIUM (BEAKER) (test code = 2.1 mg/dL 1.6-2.6 627) Forming Machine Upkeep Mechanic ID - [id number] 08:42:00 Test Item Value Reference Range Interpretation Comments PHOSPHORUS (BEAKER) (test code = 2.7 mg/dL 2.3-4.7 604) Forming Machine Upkeep Mechanic ID - [id number] 08:42:00 Test Item Value Reference Range Interpretation Comments POTASSIUM (BEAKER) (test code = 4.4 meq/L 3.5-5.1 379) Forming Machine Upkeep Mechanic ID - JOJOPrepare [id number] 08:26:00 Test Item Value Reference Range Interpretation Comments Unit ABO (test code = O Pos 6070860) UNIT NUMBER (test code = [id number] 934-0) Status (test code = RETURNED FROM ISSUE [id number]) Blood Bank Product (test RED BLOOD CELLS code = 2263) PRODUCT CODE (test code = G7065B30 933-2) CROSSMATCH (test code = COMPATIBLE 4) [facility] [id number] 08:26:00 Test Item Value Reference Range Interpretation Comments Unit ABO (test code = O Pos 4765308) UNIT NUMBER (test code = [id number] 934-0) Status (test code = RETURNED FROM ISSUE 2253479) Blood Bank Product (test RED BLOOD CELLS code = 2263) PRODUCT CODE (test code = C4960E78 933-2) CROSSMATCH (test code = COMPATIBLE 4) [facility] [id number] 08:26:00 Test Item Value Reference Range Interpretation Comments Unit ABO (test code = O Pos 5894538) UNIT NUMBER (test code = [id number] 934-0) Status (test code = RETURNED FROM ISSUE [id number]) Blood Bank Product (test RED BLOOD CELLS code = 2263) PRODUCT CODE (test code = A0648O74 933-2) CROSSMATCH (test code = COMPATIBLE 2264) [facility] [id number] 08:26:00 Test Item Value Reference Range Interpretation Comments POC-GLUCOSE METER 103 mg/dL 70-110 : TESTED A T [facility] 6720 (BEAKER) (test code = RAYMONJOBY SHULTZ [place], 1538) [address]: Forming Machine Upkeep Mechanic/Techni won ID = [id number] for SYLWIA TIAN CALCIUM, [id number] 07:15:00 Test Item Value Reference Range Interpretation Comments CALCIUM IONIZED (BEAKER) (test 1.19 mmol/L 1.12-1.27 code = 698) PH, BLOOD (BEAKER) (test code = 7.41 1810) BLOOD GAS, [id number] 06:40:00 Test Item Value Reference Range Interpretation [...] (BEAKER) (test code = 1819) 40.0 DIGOXIN [id number] 05:24:00 Test Item Value Reference Range Interpretation Comments DIGOXIN LEVEL (BEAKER) (test code 0.76 ng/mL 0.80-2.00 L = 669) Forming Machine Upkeep Mechanic ID - VALDEZ MOXYGEN SATURATION, [id number] 05:13:00 Test Item Value Reference Range Interpretation Comments O2 SATURATION (MEASURED) (BEAKER) 62.6 % (test code = 1455) BLOOD GAS, [id number] 05:11:00 Test Item Value Reference Range Interpretation [...] FIO2 (BEAKER) (test code = 1819) 40.0 [id number] 05:04:00 Test Item Value Reference Range Interpretation Comments PHOSPHORUS (BEAKER) (test code = 1.0 mg/dL 2.3-4.7 LL 604) Forming Machine Upkeep Mechanic ID - VALDEZ MBASIC METABOLIC [id number] 04:53:00 Test Item Value Reference Range Interpretation [...] S NOT APPLICABLE FOR DIALYSIS PATIEN TS. Forming Machine Upkeep Mechanic ID - VALDEZ [id number] 04:53:00 Test Item Value Reference Range Interpretation Comments MAGNESIUM (BEAKER) (test code = 2.3 mg/dL 1.6-2.6 627) Forming Machine Upkeep Mechanic ID - VALDEZ [id number] 04:44:00 Test Item Value Reference Range Interpretation Comments PARTIAL THROMBOPLASTIN TIME 35.3 seconds 22.5-36.0 (BEAKER) (test code = 760) PROTHROMBIN TIME/[id number] 04:43:00 Test Item Value Reference Range Interpretation Comments PROTIME (BEAKER) 16.6 seconds 11.9-14.2 H (test code = 759) INR (BEAKER) (test 1.36 See_Comment [Automat ed message] code = 370) The system [employer] generated this result transmitted ref erence range: <=5.90. The reference range was not used to int erpret this result as normal/abnormal . RECOMMENDED COUMADIN/WARFARIN INR THERAPY RANGESSTANDARD DOSE: 2.0 - 3.0 Includes: PROPHYLAXIS for venous thrombosis, systemic embolization; TREATMENT for venous thrombosis and/or pulmonary embolus.HIGH RISK: Target INR is 2.5-3.5 for patients with mechanical heart valves.CBC W/PLT COUNT & AUTO [id number] 04:40:00 Test Item Value Reference Range Interpretation [...] (BEAKER) (test code = 2801) LACTIC ACID, [id number] 04:38:00 Test Item Value Reference Range Interpretation Comments LACTATE BLOOD ARTERIAL (2) 1.5 mmol/L 0.5-2.2 (BEAKER) (test code = 2874) Forming Machine Upkeep Mechanic ID - VALDEZ MBLOOD GAS, [id number] 04:34:00 Test Item Value Reference Range Interpretation [...] 1819) 40.0 RAD, CHEST, 1 VIEW, NON [id number] 02:40:00Reason for exam:- >intubatedShould this be performed at the bedside?->Yes [facility] 1975 Sex: MFINAL REPORT RAD, CHEST, 1 VIEW, NON DEPT INDICATION: intubated COMPARISON: Prior day's exam FINDINGS: Portable frontal view of the chest. IMPRESSION: Support Lines: No significant change. Lungs and pleura: Unchanged airspace and pleural opacities. No pneumothorax.Heart and mediastinum: Stable cardiomegaly. Additional findings: None. Signed: Abhay Meloeport Verified Date/Time: 01/26/2021 02:40:28 RAD, ABDOMEN/KUB, 1 VIEW [id number] 00:28:00Reason for exam:->Corpak position [facility] RYAN : 1975 Sex: MFINAL REPORT Abdomen one [...] Signed: Buck Warren Verified Date/Time: 01/26/2021 00:28:31 XR abdomen / KUB 1 [id number] 00:28:00Interface, External Ris In - 01/26/2021 12:30 [...] Signed: Buck Warren Verified Date/Time: 01/26/2021 00:28:31 [facility] [id number] 00:28:00Interface, External Ris In - 01/26/2021 12:30 [...] Signed: Buck Warren Verified Date/Time: 01/26/2021 00:28:31 [facility] 1 [id number] 00:28:00Interface, External Ris In - 01/26/2021 12:30 [...] Signed: Buck Warren Verified Date/Time: 01/26/2021 00:28:31 [facility] 2021-01-25 22:11:00 Test Item Value Reference Range Interpretation Comments POC-GLUCOSE METER 97 mg/dL 70-110 : TESTED A T [facility] 6720 (BEAKER) (test code = NORM [place]ULT[place], 1538) 132[address]: Forming Machine Upkeep Mechanic/Techni won ID = [id number] for MESERET DE SOUZASeptember BASIC METABOLIC [id number] 20:58:00 Test Item Value Reference Range Interpretation [...] S NOT APPLICABLE FOR DIALYSIS PATIEN TS. Forming Machine Upkeep Mechanic ID - [id number] 20:58:00 Test Item Value Reference Range Interpretation Comments MAGNESIUM (BEAKER) (test code = 1.9 mg/dL 1.6-2.6 627) Forming Machine Upkeep Mechanic ID - CDPPOCT-GLUCOSE [id number] 18:18:00 Test Item Value Reference Range Interpretation Comments POC-GLUCOSE METER 103 mg/dL 70-110 : TESTED A T [facility] 6720 (BEAKER) (test code = NORM [place], 1538) [address]27[address]: Forming Machine Upkeep Mechanic/Techni won ID = [id number] for LEVY BARBOZA [id number] 17:35:00 Test Item Value Reference Range Interpretation Comments MAGNESIUM (BEAKER) (test code = 2.1 mg/dL 1.6-2.6 627) Forming Machine Upkeep Mechanic ID - [id number] 17:35:00 Test Item Value Reference Range Interpretation Comments PHOSPHORUS (BEAKER) (test code = 2.0 mg/dL 2.3-4.7 L 604) Forming Machine Upkeep Mechanic ID - [id number] 17:35:00 Test Item Value Reference Range Interpretation Comments POTASSIUM (BEAKER) (test code = 3.8 meq/L 3.5-5.1 379) Forming Machine Upkeep Mechanic ID - [id number] 17:35:00 Test Item Value Reference Range Interpretation Comments SODIUM (BEAKER) (test code = 381) 136 meq/L 136-145 Forming Machine Upkeep Mechanic ID - CDPBLOOD GAS, [id number] 16:13:00 Test Item Value Reference Range Interpretation [...] 1819) 40.0 CBC W/PLT COUNT & AUTO [id number] 14:29:00 Test Item Value Reference Range Interpretation [...] PERCENT (BEAKER) (test code = 2801) POCT-GLUCOSE [id number] 13:31:00 Test Item Value Reference Range Interpretation Comments POC-GLUCOSE METER 92 mg/dL 70-110 : TESTED A T [facility] 6720 (BEAKER) (test code = NORM [place], 1538) [address]: Forming Machine Upkeep Mechanic/Techni won ID = [id number] for LEVY MINER BASIC METABOLIC [id number] 12:31:00 Test Item Value Reference Range Interpretation [...] S NOT APPLICABLE FOR DIALYSIS PATIEN TS. Forming Machine Upkeep Mechanic ID - [id number] 12:31:00 Test Item Value Reference Range Interpretation Comments MAGNESIUM (BEAKER) (test code = 2.0 mg/dL 1.6-2.6 627) Forming Machine Upkeep Mechanic ID - [id number] 12:31:00 Test Item Value Reference Range Interpretation Comments PHOSPHORUS (BEAKER) (test code = 2.0 mg/dL 2.3-4.7 L 604) Forming Machine Upkeep Mechanic ID - EMERSONCALCIUM, [id number] 12:07:00 Test Item Value Reference Range Interpretation Comments CALCIUM IONIZED (BEAKER) (test 1.22 mmol/L 1.12-1.27 code = 698) PH, BLOOD (BEAKER) (test code = 7.50 1810) RAD, CHEST, 1 VIEW, NON [id number] 09:54:00Reason for exam:- >intubatedShould this be performed at the bedside?->Yes [facility] : 1975 Sex: MFINAL REPORT CLINICAL HISTORY: intubated TECHNIQUE: 1 view of the chest. COMPARISON:01/24/2021 IMPRESSION: The supporting lines and tubes are similar appearing. Bilateral airspace opacities and a left pleural effusion are grossly unchanged. The cardiomediastinal silhouette is magnifiedby technique with sternotomy wires. Signed: Melodie Zarateeport Verified Date/Time: 01/25/2021 09:54:23 Reading Location: [facility] Radiology Reading Room POCT-GLUCOSE METER 2021-01-25 08:19:00 Test Item Value Reference Range Interpretation Comments POC-GLUCOSE METER 106 mg/dL 70-110 : TESTED A T [facility] 6720 (BEAKER) (test code = RAYMONJOBY Jona SHULTZ [place], 1538) 27[address]: Forming Machine Upkeep Mechanic/Techni won ID = [id number] for LEVY BARBOZA CALCIUM, [id number] 04:51:00 Test Item Value Reference Range Interpretation Comments CALCIUM IONIZED (BEAKER) (test 1.20 mmol/L 1.12-1.27 code = 698) PH, BLOOD (BEAKER) (test code = 7.44 1810) BLOOD GAS, [id number] 04:50:00 Test Item Value Reference Range Interpretation [...] (test code = 1819) 40.0 OXYGEN SATURATION, [id number] 04:48:00 Test Item Value Reference Range Interpretation Comments O2 SATURATION (MEASURED) (BEAKER) 96.3 % (test code = 1455) BASIC METABOLIC [id number] 04:39:00 Test Item Value Reference Range Interpretation [...] S NOT APPLICABLE FOR DIALYSIS PATIEN TS. Forming Machine Upkeep Mechanic ID - KENNETH [id number] 04:39:00 Test Item Value Reference Range Interpretation Comments MAGNESIUM (BEAKER) (test code = 2.0 mg/dL 1.6-2.6 627) Forming Machine Upkeep Mechanic ID - KENNETH [id number] 04:39:00 Test Item Value Reference Range Interpretation Comments PHOSPHORUS (BEAKER) (test code = 2.1 mg/dL 2.3-4.7 L 604) Forming Machine Upkeep Mechanic ID - KENNETH WLACTIC ACID, [id number] 04:30:00 Test Item Value Reference Range Interpretation Comments LACTATE BLOOD ARTERIAL (2) 0.7 mmol/L 0.5-2.2 (BEAKER) (test code = 2874) Forming Machine Upkeep Mechanic ID - LINA [id number] 04:26:00 Test Item Value Reference Range Interpretation Comments PARTIAL THROMBOPLASTIN TIME 35.4 seconds 22.5-36.0 (BEAKER) (test code = 760) PROTHROMBIN TIME/[id number] 04:25:00 Test Item Value Reference Range Interpretation Comments PROTIME (BEAKER) 16.3 seconds 11.9-14.2 H (test code = 759) INR (BEAKER) (test 1.34 See_Comment [Automat ed message] code = 370) The system [employer] generated this result transmitted ref erence range: <=5.90. The reference range was not used to int erpret this result as normal/abnormal . RECOMMENDED COUMADIN/WARFARIN INR THERAPY RANGESSTANDARD DOSE: 2.0 - 3.0 Includes: PROPHYLAXIS for venous thrombosis, systemic embolization; TREATMENT for venous thrombosis and/or pulmonary embolus.HIGH RISK: Target INR is 2.5-3.5 for patients with mechanical heart valves.CBC W/PLT COUNT & AUTO [id number] 04:24:00 Test Item Value Reference Range Interpretation [...] PERCENT (BEAKER) (test code = 2801) POCT-GLUCOSE [id number] 00:25:00 Test Item Value Reference Range Interpretation Comments POC-GLUCOSE METER 87 mg/dL 70-110 : TESTED A T [facility] 6720 (BEAKER) (test code = RAYMONJOBY SHULTZ [place], 1538) [address]: Forming Machine Upkeep Mechanic/Techni won ID = [id number] for JAYLA DOWNEY Prepare [id number] 23:55:00 Test Item Value Reference Range Interpretation Comments Unit ABO (test code = 8296743) A Pos UNIT NUMBER (test code = [id number] 934-0) Status (test code = 8176644) TX_TIMEINCHART Blood Bank Product (test code FFP = 2263) PRODUCT CODE (test code = P4353J76 933-2) [facility] [id number] 23:55:00 Test Item Value Reference Range Interpretation Comments Unit ABO (test code = 2472203) O Neg UNIT NUMBER (test code = [id number] 934-0) Status (test code = 8422773) TX_TIMEINCHART Blood Bank Product (test code PLATELETS = 2263) PRODUCT CODE (test code = M8682J93 933-2) [facility] Leuko-Red [id number] 23:55:00 Test Item Value Reference Range Interpretation Comments Unit ABO (test code = 2844736) O Neg UNIT NUMBER (test code = [id number] 934-0) Status (test code = 0948294) TX_TIMEINCHART Blood Bank Product (test code PLATELETS = 2263) PRODUCT CODE (test code = G4196N75 933-2) [facility] [id number] 23:55:00 Test Item Value Reference Range Interpretation Comments Unit ABO (test code = 9568607) A Pos UNIT NUMBER (test code = [id number] 934-0) Status (test code = 8670990) TX_TIMEINCHART Blood Bank Product (test code FFP = 2263) PRODUCT CODE (test code = G0165Q72 933-2) [facility] [id number] 23:55:00 Test Item Value Reference Range Interpretation Comments Unit ABO (test code = 9628789) O Neg UNIT NUMBER (test code = [id number] 934-0) Status (test code = 0960430) TX_TIMEINCHART Blood Bank Product (test code PLATELETS = 2263) PRODUCT CODE (test code = P6919P89 933-2) [facility] Leuko-Red [id number] 23:55:00 Test Item Value Reference Range Interpretation Comments Unit ABO (test code = 9495396) O Neg UNIT NUMBER (test code = [id number] 934-0) Status (test code = 3363125) TX_TIMEINCHART Blood Bank Product (test code PLATELETS = 2263) PRODUCT CODE (test code = R7133O42 933-2) [facility] [id number] 23:55:00 Test Item Value Reference Range Interpretation Comments Unit ABO (test code = 3506595) A Pos UNIT NUMBER (test code = [id number] 934-0) Status (test code = 3130111) TX_TIMEINCHART Blood Bank Product (test code FFP = 2263) PRODUCT CODE (test code = U2368D07 933-2) [facility] [id number] 23:55:00 Test Item Value Reference Range Interpretation Comments Unit ABO (test code = 4842642) O Neg UNIT NUMBER (test code = [id number] 934-0) Status (test code = 0324597) TX_TIMEINCHART Blood Bank Product (test code PLATELETS = 2263) PRODUCT CODE (test code = H9734S74 933-2) [facility] Leuko-Red [id number] 23:55:00 Test Item Value Reference Range Interpretation Comments Unit ABO (test code = 0584023) O Neg UNIT NUMBER (test code = X352569516189 934-0) Status (test code = 8770177) TX_TIMEINCHART Blood Bank Product (test code PLATELETS = 2263) PRODUCT CODE (test code = I9143O91 933-2) [facility] [id number] 22:10:00 Test Item Value Reference Range Interpretation Comments SODIUM (BEAKER) (test code = 381) 134 meq/L 136-145 L GLUCOSE-STAT [id number] 22:10:00 Test Item Value Reference Range Interpretation Comments GLUCOSE RANDOM (BEAKER) (test code 115 mg/dL 70-110 H = 652) HGB/HCT (H&H) - STAT [id number] 22:10:00 Test Item Value Reference Range Interpretation Comments HEMOGLOBIN (BEAKER) (test code = 7.6 GM/DL 13.0-16.8 L 410) HEMATOCRIT (BEAKER) (test code = 22.0 % 40.0-50.0 L 411) BLOOD GAS, [id number] 22:10:00 Test Item Value Reference Range Interpretation [...] (BEAKER) (test code = 1819) 40.0 POTASSIUM-STAT [id number] 22:07:00 Test Item Value Reference Range Interpretation Comments POTASSIUM (BEAKER) (test code = 3.8 meq/L 3.6-5.5 379) BASIC METABOLIC [id number] 18:50:00 Test Item Value Reference Range Interpretation [...] S NOT APPLICABLE FOR DIALYSIS PATIEN TS. Forming Machine Upkeep Mechanic ID - [id number] 18:50:00 Test Item Value Reference Range Interpretation Comments MAGNESIUM (BEAKER) (test code = 2.2 mg/dL 1.6-2.6 627) Forming Machine Upkeep Mechanic ID - [id number] 18:50:00 Test Item Value Reference Range Interpretation Comments PHOSPHORUS (BEAKER) (test code = 3.1 mg/dL 2.3-4.7 604) Forming Machine Upkeep Mechanic ID - CDPPOCT-GLUCOSE [id number] 13:09:00 Test Item Value Reference Range Interpretation Comments POC-GLUCOSE METER 101 mg/dL 70-110 : TESTED A T [facility] 6720 (BEAKER) (test code = NORM [place], 1538) 65457: Forming Machine Upkeep Mechanic/Techni won ID = [id number] for KISHORE VELASQUEZ CBC W/PLT COUNT & AUTO [id number] 12:45:00 Test Item Value Reference Range Interpretation [...] H PERCENT (BEAKER) (test code = 2801) [id number] 12:38:00 Test Item Value Reference Range Interpretation Comments MAGNESIUM (BEAKER) (test code = 2.0 mg/dL 1.6-2.6 627) Forming Machine Upkeep Mechanic ID - PIAYA [id number] 12:38:00 Test Item Value Reference Range Interpretation Comments PHOSPHORUS (BEAKER) (test code = 3.5 mg/dL 2.3-4.7 604) Forming Machine Upkeep Mechanic ID Doretha MILLS [id number] 12:38:00 Test Item Value Reference Range Interpretation Comments POTASSIUM (BEAKER) (test code = 4.4 meq/L 3.5-5.1 379) Forming Machine Upkeep Mechanic ID Doretha MILLS LHEPATIC FUNCTION [id number] 10:44:00 Test Item Value Reference Range Interpretation [...] code = 427 U/L 6-55 H 347) Forming Machine Upkeep Mechanic ID Doretha MILLS LBLOOD GAS, [id number] 10:40:00 Test Item Value Reference Range Interpretation [...] 1819) 40.0 RAD, CHEST, 1 VIEW, NON [id number] 08:49:00Reason for exam:- >intubatedShould this be performed at the bedside?->Yes [facility] : 1975 Sex: MFINAL REPORT CLINICAL HISTORY: intubated TECHNIQUE: 1 view of the chest. COMPARISON:01/23/2021 IMPRESSION: The supporting lines and tubes are similar appearing. Bilateral airspace opacities are similar. A small pleural effusions unchanged. The cardiomediastinal silhouette is magnified by technique with sternotomy wires. Signed: Melodie Zarate MDRort Verified Date/Time: 01/24/2021 08:49:07 Reading Location: [facility] Radiology Reading Room BASIC METABOLIC PANEL 2021-01-24 [...] S NOT APPLICABLE FOR DIALYSIS PATIEN TS. Forming Machine Upkeep Mechanic ID - VALDEZ [id number] 03:54:00 Test Item Value Reference Range Interpretation Comments MAGNESIUM (BEAKER) (test code = 2.2 mg/dL 1.6-2.6 627) Forming Machine Upkeep Mechanic ID - VALDEZ [id number] 03:54:00 Test Item Value Reference Range Interpretation Comments PHOSPHORUS (BEAKER) (test code = 2.8 mg/dL 2.3-4.7 604) Forming Machine Upkeep Mechanic ID - VALDEZ [id number] 03:49:00 Test Item Value Reference Range Interpretation Comments PARTIAL THROMBOPLASTIN TIME 36.8 seconds 22.5-36.0 H (BEAKER) (test code = 760) PROTHROMBIN TIME/[id number] 03:48:00 Test Item Value Reference Range Interpretation Comments PROTIME (BEAKER) 18.6 seconds 11.9-14.2 H (test code = 759) INR (BEAKER) (test 1.57 See_Comment [Automat ed message] code = 370) The system [employer] generated this result transmitted ref erence range: <=5.90. The reference range was not used to int erpret this result as normal/abnormal . RECOMMENDED COUMADIN/WARFARIN INR THERAPY RANGESSTANDARD DOSE: 2.0 - 3.0 Includes: PROPHYLAXIS for venous thrombosis, systemic embolization; TREATMENT for venous thrombosis and/or pulmonary embolus.HIGH RISK: Target INR is 2.5-3.5 for patients with mechanical heart valves.CBC W/PLT COUNT & AUTO [id number] 03:40:00 Test Item Value Reference Range Interpretation [...] 0-1 H PERCENT (BEAKER) (test code = 8711) LACTIC ACID, [id number] 03:37:00 Test Item Value Reference Range Interpretation Comments LACTATE BLOOD ARTERIAL (2) 1.4 mmol/L 0.5-2.2 (BEAKER) (test code = 9244) Forming Machine Upkeep Mechanic ID - VALDEZ MBLOOD GAS, [id number] 03:26:00 Test Item Value Reference Range Interpretation [...] (BEAKER) (test code = 1819) 40.0 CALCIUM, [id number] 03:24:00 Test Item Value Reference Range Interpretation Comments CALCIUM IONIZED (BEAKER) (test 1.20 mmol/L 1.12-1.27 code = 698) PH, BLOOD (BEAKER) (test code = 7.48 1810) OXYGEN SATURATION, [id number] 03:23:00 Test Item Value Reference Range Interpretation Comments O2 SATURATION (MEASURED) (BEAKER) 64.1 % (test code = 1455) CBC W/PLT COUNT & AUTO [id number] 01:33:00 Test Item Value Reference Range Interpretation [...] (BEAKER) (test code = 2801) LACTIC ACID, [id number] 00:48:00 Test Item Value Reference Range Interpretation Comments LACTATE BLOOD ARTERIAL (2) 1.4 mmol/L 0.5-2.2 (BEAKER) (test code = 2874) Forming Machine Upkeep Mechanic ID - LINA LBLOOD GAS, [id number] 00:37:00 Test Item Value Reference Range Interpretation [...] (BEAKER) (test code = 1819) 40.0 POCT-GLUCOSE [id number] 23:22:00 Test Item Value Reference Range Interpretation Comments POC-GLUCOSE METER 102 mg/dL 70-110 : TESTED A T [facility] 6720 (BEAKER) (test code = NORM Ten[place], 1538) 65284: Forming Machine Upkeep Mechanic/Techni won ID = [id number] for ARI MAYER [id number] 22:00:00 Test Item Value Reference Range Interpretation Comments MAGNESIUM (BEAKER) 2.1 mg/dL 1.6-2.6 Specimen slightly (test code = 627) hemolyzed Forming Machine Upkeep Mechanic ID - [id number] 22:00:00 Test Item Value Reference Range Interpretation Comments PHOSPHORUS (BEAKER) 3.0 mg/dL 2.3-4.7 Specimen slightly (test code = 604) hemolyzed Forming Machine Upkeep Mechanic ID - DBBASIC METABOLIC [id number] 22:00:00 Test Item Value Reference Range Interpretation [...] S NOT APPLICABLE FOR DIALYSIS PATIEN TS. Forming Machine Upkeep Mechanic ID - DBCBC W/PLT COUNT & AUTO [id number] 21:49:00 Test Item Value Reference Range Interpretation [...] H PERCENT (BEAKER) (test code = 2801) [id number] 21:45:00 Test Item Value Reference Range Interpretation Comments Fibrinogen (test code = 3255-7) 253 mg/dl 225-434 Lab Interpretation (test code = Normal 99831-0) [facility] 21:45:00 Test Item Value Reference Range Interpretation Comments Fibrinogen (test code = 3255-7) 253 mg/dl 225-434 Lab Interpretation (test code = Normal 43651-6) [facility] 21:45:00 Test Item Value Reference Range Interpretation Comments Fibrinogen (test code = 3255-7) 253 mg/dl 225-434 Lab Interpretation (test code = Normal 78930-3) [facility]2021-08-16 21:45:00 Test Item Value Reference Range Interpretation Comments FIBRINOGEN LEVEL (BEAKER) (test 253 mg/dl 225-434 code = 658) [id number] 21:45:00 Test Item Value Reference Range Interpretation Comments PARTIAL THROMBOPLASTIN TIME 37.3 seconds 22.5-36.0 H (BEAKER) (test code = 760) PROTHROMBIN TIME/[id number] 21:44:00 Test Item Value Reference Range Interpretation Comments PROTIME (BEAKER) 19.4 seconds 11.9-14.2 H (test code = 759) INR (BEAKER) (test 1.66 See_Comment [Automat ed message] code = 370) The system [employer] generated this result transmitted ref erence range: <=5.90. The reference range was not used to int erpret this result as normal/abnormal . RECOMMENDED COUMADIN/WARFARIN INR THERAPY RANGESSTANDARD DOSE: 2.0 - 3.0 Includes: PROPHYLAXIS for venous thrombosis, systemic embolization; TREATMENT for venous thrombosis and/or pulmonary embolus.HIGH RISK: Target INR is 2.5-3.5 for patients with mechanical heart valves.CALCIUM, [id number] 21:36:00 Test Item Value Reference Range Interpretation Comments CALCIUM IONIZED (BEAKER) (test 1.10 mmol/L 1.12-1.27 L code = 698) PH, BLOOD (BEAKER) (test code = 7.54 1810) BLOOD GAS, [id number] 21:36:00 Test Item Value Reference Range Interpretation [...] (BEAKER) (test code = 1819) 40.0 POCT-GLUCOSE [id number] 18:58:00 Test Item Value Reference Range Interpretation Comments POC-GLUCOSE METER 84 mg/dL 70-110 : TESTED A T [facility] 6720 (BEAKER) (test code = NORM [place]ULT[place], 1538) 76677: Forming Machine Upkeep Mechanic/Techni won ID = [id number] for Mirna Tanner (contract)Tania CBC W/PLT COUNT & AUTO [id number] 18:08:00 Test Item Value Reference Range Interpretation [...] (BEAKER) (test code = 2801) OXYGEN SATURATION, [id number] 17:48:00 Test Item Value Reference Range Interpretation Comments O2 SATURATION (MEASURED) (BEAKER) 82.4 % (test code = 1455) CBC W/PLT COUNT & AUTO [id number] 17:46:00 Test Item Value Reference Range Interpretation [...] (BEAKER) (test code = 2801) Comprehensive metabolic [id number] 16:31:00 Test Item Value Reference Range Interpretation Comments Protein, Total (test 5.2 See_Comment L [Autom ated code = 2885-2) message] The system which generated this result transmit ari reference range : 6.0 - 8.3 gm/dL . The reference range was not u sed to interpret th is result as normal/abnormal . Albumin (test code = 2.6 g/dL 3.5-5 L 91763-4) Alkaline Phosphatase 89 U/L 40-150 (test code = 6768-6) Total Bilirubin (test 0.8 mg/dL 0.2-1.2 code = 1975-2) Sodium (test code = 139 meq/L 276-917 3502-2) Potassium (test code 4.1 meq/L 3.5-5.1 = 2823-3) Chloride (test code = 105 meq/L 98-107 2075-0) CO2 (test code = 26 meq/L 22-29 2028-9) BUN (test code = 20 mg/dL 7-21 3094-0) Creatinine (test code 1.88 mg/dL 0.57-1.25 H = 2160-0) Glucose (test code = 113 mg/dL 70-105 H 2345-7) Calcium (test code = 8.2 mg/dL 8.4-10.2 L 84678-0) AST (test code = 772 U/L 5-34 H 1920-8) ALT (test code = 533 U/L 6-55 H 1742-6) EGFR (test code = 48 mL/min/1.73 sq m [facility] [place] [address]-6) NOT ACCURATE CREATININE CLEARANCE IN PREDICTING GLOMERULAR FILTRATION RATE . ESTIMATED GFR I S NOT APPLICABLE FOR DIALYSIS PATIEN TS. CARLEY (test code = CARLEY) Forming Machine Upkeep Mechanic ID - JUN Lab Interpretation Abnormal (test code = 68695-0) [facility] [id number] 16:31:00 Test Item Value Reference Range Interpretation Comments Protein, Total (test 5.2 See_Comment L [Autom ated code = 2885-2) message] The system which generated this result transmit ari reference range : 6.0 - 8.3 gm/dL . The reference range was not u sed to interpret th is result as normal/abnormal . Albumin (test code = 2.6 g/dL 3.5-5 L 47079-2) Alkaline Phosphatase 89 U/L 40-150 (test code = 6768-6) Total Bilirubin (test 0.8 mg/dL 0.2-1.2 code = 1974-) Sodium (test code = 139 meq/L 069-425 9478-2) Potassium (test code 4.1 meq/L 3.5-5.1 = 2823-3) Chloride (test code = 105 meq/L 98-107 2075-0) CO2 (test code = 26 meq/L 22-29 2027-9) BUN (test code = 20 mg/dL 7-21 3094-0) Creatinine (test code 1.88 mg/dL 0.57-1.25 H = 2160-0) Glucose (test code = 113 mg/dL 70-105 H 2345-7) Calcium (test code = 8.2 mg/dL 8.4-10.2 L 76718-3) AST (test code = 772 U/L 5-34 H 1920-8) ALT (test code = 533 U/L 6-55 H 1742-6) EGFR (test code = 48 mL/min/1.73 sq m [facility] [place] [address]-9) NOT ACCURATE CREATININE CLEARANCE IN PREDICTING GLOMERULAR FILTRATION RATE . ESTIMATED GFR I S NOT APPLICABLE FOR DIALYSIS PATIEN TSJennifer CARLEY (test code = CARLEY) Forming Machine Upkeep Mechanic ID - JUN Lab Interpretation Abnormal (test code = 67766-0) [facility] [id number] 16:31:00 Test Item Value Reference Range Interpretation Comments Protein, Total (test 5.2 See_Comment L [Autom ated code = 2885-2) message] The system which generated this result transmit ari reference range : 6.0 - 8.3 gm/dL . The reference range was not u sed to interpret th is result as normal/abnormal . Albumin (test code = 2.6 g/dL 3.5-5 L 09671-2) Alkaline Phosphatase 89 U/L 40-150 (test code = 6768-6) Total Bilirubin (test 0.8 mg/dL 0.2-1.2 code = 1974-07) Sodium (test code = 139 meq/L 841-702 9222-2) Potassium (test code 4.1 meq/L 3.5-5.1 = 2823-3) Chloride (test code = 105 meq/L 98-107 2075-0) CO2 (test code = 26 meq/L 22-29 2027-9) BUN (test code = 20 mg/dL 7-21 3094-0) Creatinine (test code 1.88 mg/dL 0.57-1.25 H = 2160-0) Glucose (test code = 113 mg/dL 70-105 H 2345-7) Calcium (test code = 8.2 mg/dL 8.4-10.2 L 61729-7) AST (test code = 772 U/L 5-34 H 1920-8) ALT (test code = 533 U/L 6-55 H 1742-6) EGFR (test code = 48 mL/min/1.[place] [address]-5) NOT ACCURATE CREATININE CLEARANCE IN PREDICTING GLOMERULAR FILTRATION RATE . ESTIMATED GFR I S NOT APPLICABLE FOR DIALYSIS PATIEN CARLEY (test code = CARLEY) Forming Machine Upkeep Mechanic ID - TIGRE Lab Interpretation Abnormal (test code = 98659-7) [facility]PRE[facility] METAB[facility] [id number] 16:31:00 Test Item Value Reference Range Interpretation [...] = 382) CO2 (BEAKER) (test 26 meq/L -29 code = 355) BLOOD UREA NITROGEN 20 [...] S NOT APPLICABLE FOR DIALYSIS PATIEN TS. Forming Machine Upkeep Mechanic ID - [id number] 16:31:00 Test Item Value Reference Range Interpretation Comments MAGNESIUM (BEAKER) (test code = 2.3 mg/dL 1.6-2.6 627) Forming Machine Upkeep Mechanic ID - [id number] 16:31:00 Test Item Value Reference Range Interpretation Comments PHOSPHORUS (BEAKER) (test code = 4.2 mg/dL 2.3-4.7 604) Forming Machine Upkeep Mechanic ID - TIGRELACTIC ACID, [id number] 16:27:00 Test Item Value Reference Range Interpretation Comments LACTATE BLOOD ARTERIAL (2) 2.0 mmol/L 0.5-2.2 (BEAKER) (test code = 2874) Forming Machine Upkeep Mechanic ID - JENAE, CHEST, 1 VIEW, NON [id number] 16:17:00Reason for exam:->post opShould this be performed at the bedside?->Yes [facility] 1975 Sex: MFINAL [...] abnormality. Signed: Jerzy Ferrell MDReport Verified Date/Time: 01/23/2021 16:17:46 Reading Location: [facility] C013W Consult Reading Room [id number] 16:15:00 Test Item Value Reference Range Interpretation Comments FIBRINOGEN LEVEL (BEAKER) (test 274 mg/dl 225-434 code = 658) [id number] 16:15:00 Test Item Value Reference Range Interpretation Comments PARTIAL THROMBOPLASTIN TIME 39.6 seconds 22.5-36.0 H (BEAKER) (test code = 760) PROTHROMBIN [id number] 16:14:00 Test Item Value Reference Range Interpretation Comments PROTIME (BEAKER) 19.0 seconds 11.9-14.2 H (test code = 759) INR (BEAKER) (test 1.62 See_Comment [Automat ed message] code = 370) The system [employer] generated this result transmitted ref erence range: <=5.90. The reference range was not used to int erpret this result as normal/abnormal . RECOMMENDED COUMADIN/WARFARIN INR THERAPY RANGESSTANDARD DOSE: 2.0 - 3.0 Includes: PROPHYLAXIS for venous thrombosis, systemic embolization; TREATMENT for venous thrombosis and/or pulmonary embolus.HIGH RISK: Target INR is 2.5-3.5 for patients with mechanical heart valves.BLOOD GAS, [id number] 16:01:00 Test Item Value Reference Range Interpretation [...] (BEAKER) (test code = 1819) 60.0 POTASSIUM-STAT [id number] 16:01:00 Test Item Value Reference Range Interpretation Comments POTASSIUM (BEAKER) (test code = 3.9 meq/L 3.6-5.5 379) GLUCOSE-STAT [id number] 16:01:00 Test Item Value Reference Range Interpretation Comments GLUCOSE RANDOM (BEAKER) (test code 117 mg/dL 70-110 H = 652) HGB/HCT (H&H) - STAT [id number] 16:01:00 Test Item Value Reference Range Interpretation Comments HEMOGLOBIN (BEAKER) (test code = 7.6 GM/DL 13.0-16.8 L 410) HEMATOCRIT (BEAKER) (test code = 22.0 % 40.0-50.0 L 411) SODIUM NA-STAT [id number] 16:00:00 Test Item Value Reference Range Interpretation Comments SODIUM (BEAKER) (test code = 381) 136 meq/L 136-145 [id number] 14:05:00 Test Item Value Reference Range Interpretation Comments FIBRINOGEN LEVEL (BEAKER) (test 265 mg/dl 225-434 code = 658) [id number] 14:05:00 Test Item Value Reference Range Interpretation Comments PARTIAL THROMBOPLASTIN TIME 51.7 seconds 22.5-36.0 H (BEAKER) (test code = 760) PROTHROMBIN [id number] 14:04:00 Test Item Value Reference Range Interpretation Comments PROTIME (BEAKER) 19.9 seconds 11.9-14.2 H (test code = 759) INR (BEAKER) (test 1.72 See_Comment [Automat ed message] code = 370) The system [employer] generated this result transmitted ref erence range: <=5.90. The reference range was not used to int erpret this result as normal/abnormal . RECOMMENDED COUMADIN/WARFARIN INR THERAPY RANGESSTANDARD DOSE: 2.0 - 3.0 Includes: PROPHYLAXIS for venous thrombosis, systemic embolization; TREATMENT for venous thrombosis and/or pulmonary embolus.HIGH RISK: Target INR is 2.5-3.5 for patients with mechanical heart valves.Platelet [id number] 14:01:00 Test Item Value Reference Range Interpretation Comments Platelets (test code 113 See_Comment L [Autom ated = 777-3) message] The system which generated this result transmit ari reference range : 150 - 450 K/CU MM. The reference range was not u sed to interpret th is result as normal/abnormal . CARLEY (test code = CARLEY) Forming Machine Upkeep Mechanic ID - [id number] ID - [id number] Lab Interpretation Abnormal (test code = 16810-3) [facility] [id number] 14:01:00 Test Item Value Reference Range Interpretation Comments Platelets (test code 113 See_Comment L [Autom ated = 777-3) message] The system which generated this result transmit ari reference range : 150 - 450 K/CU MM. The reference range was not u sed to interpret th is result as normal/abnormal . CARLEY (test code = CARLEY) Forming Machine Upkeep Mechanic ID - [id number] ID - [id number] Lab Interpretation Abnormal (test code = 39505-9) [facility] [id number] 14:01:00 Test Item Value Reference Range Interpretation Comments Platelets (test code 113 See_Comment L [Autom ated = 777-3) message] The system which generated this result transmit ari reference range : 150 - 450 K/CU MM. The reference range was not u sed to interpret th is result as normal/abnormal . CARLEY (test code = CARLEY) Forming Machine Upkeep Mechanic ID - [id number] ID - [id number] Lab Interpretation Abnormal (test code = 88630-7) [facility] [id number] 14:01:00 Test Item Value Reference Range Interpretation Comments PLATELET COUNT (BEAKER) (test 113 K/CU MM 150-450 L code = 756) Forming Machine Upkeep Mechanic ID - 6000Operator ID - [id number] NA-STAT [id number] 13:50:00 Test Item Value Reference Range Interpretation Comments SODIUM (BEAKER) (test code = 381) 136 meq/L 136-145 POTASSIUM-STAT [id number] 13:50:00 Test Item Value Reference Range Interpretation Comments POTASSIUM (BEAKER) (test code = 4.4 meq/L 3.6-5.5 379) CALCIUM, [id number] 13:50:00 Test Item Value Reference Range Interpretation Comments CALCIUM IONIZED (BEAKER) (test 1.13 mmol/L 1.12-1.27 code = 698) PH, BLOOD (BEAKER) (test code = 7.43 1810) BLOOD GAS, [id number] 13:50:00 Test Item Value Reference Range Interpretation [...] (BEAKER) (test code = 1819) 50.0 GLUCOSE-STAT [id number] 13:50:00 Test Item Value Reference Range Interpretation Comments GLUCOSE RANDOM (BEAKER) (test code 111 mg/dL 70-110 H = 652) HGB/HCT (H&H) - STAT [id number] 13:50:00 Test Item Value Reference Range Interpretation Comments HEMOGLOBIN (BEAKER) (test code = 8.8 GM/DL 13.0-16.8 L 410) HEMATOCRIT (BEAKER) (test code = 26.0 % 40.0-50.0 L 411) ANG, TUNNELED CATHETER [id number] 11:20:00Reason for Central Line/PICC?->Need for hemodialysis accessReason for exam:->TDC [facility] : 1975 Sex: MFINAL REPORT Tunneled dialysis catheter insertion. History: Renal failure. Modality:Sonography and fluoroscopy. Sedation: none Medical Sonographer: Williams Garrett M.D. Rotary Shear Worker Helper: Vannesa Owen MD. Approach: Right internal jugular [...] right internal jugular vein, which was punctured underdirect real- time ultrasound guidance with a micropuncture needle. An ultrasound image was saved to PACS. A 0.018 inch wire was placed through the needle into the right atrium. A 4 Guamanian micropuncture sheath was placed and a 0.035 wire was advanced into the IVC. A subcutaneous tunnel was created in the right anterior chest wall by blunt dissection. A 19 cm tip to cuff 15.5 Guamanian Duraflow 2 catheter was brought through the [...] the skin to secure its placement. The smalljugular incision site was closed using Dermabond. A resorbable purse-string suture was placed at thecatheter exit site. Vital signs were monitored throughout the procedure by a nurse, and remained stable. The patient tolerated the procedure well and left the department in the same condition. Results:Spot radiograph of the chest demonstrates the new dialysis catheter to lie in the expected position with its tip overlying the superior right atrium. Impression: Successful, uncomplicated placement ofa right internal jugular tunneled dialysis catheter using sonographic and fluoroscopic guidance and conscious sedation. Signed: Williams Garrett MDReport Verified Date/Time: 01/23/2021 11:20:38 IR Tunneled Catheter [id number] 11:20:00Interface, External Ris In - 01/23/2021 11:22 AM CDTFINAL REPORT Tunneled dialysis catheter insertion. History: Renal failure. Modality: Sonography and fluoroscopy. Sedation: nonePrimary Forming Machine Upkeep Mechanic: Williams Garrett M.D. Rotary Shear Worker Helper: Vannesa Owen MD. Approach: Right internal jugular [...] A 0.018 inch wire was placed through theneedle into the right atrium. A 4 Guamanian micropuncture sheath was placed and a 0.035 wire was advanced into the IVC. A subcutaneous tunnel was created in the right anterior chest wall by blunt dissection. A 19 cm tip to cuff 15.5 Guamanian Duraflow 2 catheter was brought through the tunnel. The vessel tract was serially dilated. A peel-away sheath was placed in the right IJ vein and the catheter was advanced through the sheath, with its distal tip terminating in the superior right atrium. The peel-awaysheath was removed. The ports were flushed and aspirated easily following placement. The catheter was sutured to the skin to secure its placement. The small jugular incision site was closed using Dermabond. A resorbable purse-string suture was placed at the catheter exit site. Vital signs were monitored throughout the procedure by a nurse, and remained stable. The patient tolerated the procedure welland left the department in the same condition. Results: Spot radiograph of the chest demonstrates the new dialysis catheter to lie in the expected position with its tip overlying the superior right atrium. Impression: Successful, uncomplicated placement of a right internal jugular tunneled dialysis catheter using sonographic and fluoroscopic guidance and conscious sedation. Signed: Williams Garrett MDReport Verified Date/Time: 01/23/2021 11:20:38 [facility] 2021-01-23 11:20:00Interface, External Ris In - 01/23/2021 11:22 AM CDTFINAL REPORT Tunneled dialysis catheter insertion. History: Renal failure. Modality: Sonography and fluoroscopy. Sedation: none Medical Sonographer: Williams Garrett M.D. Rotary Shear Worker Helper: Vannesa Owen MD. Approach: Right internal jugular [...] needle into the right atrium. A 4 Guamanian micropuncture sheath was placed and a 0.035 wire was advanced into the IVC. A subcutaneous tunnel was created in the right anterior chest wall by blunt dissection. A 19 cm tip to cuff 15.5 Guamanian Duraflow 2 catheter was brought through the [...] Williams Garrett MDReport Verified Date/Time: 01/23/2021 11:20:38 [facility] CenterIR [facility] [id number] 11:20:00Interface, External Ris In - 01/23/2021 11:22 AM CDTFINAL REPORT Tunneled dialysis catheter insertion. History: Renal failure. Modality: Sonography and fluoroscopy. Sedation: none Medical Sonographer: Williams Garrett M.D. Rotary Shear Worker Helper: Vannesa Owen MD. Approach: Right internal jugular [...] needle into the right atrium. A 4 Guamanian micropuncture sheath was placed and a 0.035 wire was advanced into the IVC. A subcutaneous tunnel was created in the right anterior chest wall by blunt dissection. A 19 cm tip to cuff 15.5 Guamanian Duraflow 2 catheter was brought through the [...] small jugular incision site was closed using Pink gonzalez. A resorbable purse-string suture was placed [...] Williams Garrett MDReport Verified Date/Time: 01/23/2021 11:20:38 [facility] Differential 2021-01-23 10:57:00 Test Item Value Reference Range Interpretation [...] = 3438) CARLEY (test code = CARLEY) Forming Machine Upkeep Mechanic ID - [id number] ID - Sun Menendez comments: Slide comments: Lab Interpretation (test Abnormal code = 43162-8) [facility] [id number] 10:57:00 Test Item Value Reference Range Interpretation [...] Poikilocytes (test code = 2+ moderate 966) [place] Cells (test code = 3+ many 474) Platelet Conc (test code Decreased = 3438) CARLEY (test code = CARLEY) Forming Machine Upkeep Mechanic ID - [id number] ID - Sun Menendez comments: Slide comments: Lab Interpretation (test Abnormal code = 49071-3) [facility] [id number] 10:57:00 Test Item Value Reference Range Interpretation [...] = 3438) CARLEY (test code = CARLEY) Forming Machine Upkeep Mechanic ID - [id number] ID - Sun Menendez comments: Slide comments: Lab Interpretation (test Abnormal code = 22647-7) [facility](CELLAVISION MANUAL DIFF)2021-01-23 10:57:00 Test Item [...] CONCENTRATION Decreased (CELLAVISION)(BEAKER) (test code = 3438) Forming Machine Upkeep Mechanic ID - [id number] ID - Sun Menendez comments: Slide comments:MAGNESIUM 2021-01-23 10:10:00 Test Item Value Reference Range Interpretation Comments MAGNESIUM (BEAKER) 2.2 mg/dL 1.6-2.6 Specimen slightly (test code = 627) hemolyzed Forming Machine Upkeep Mechanic ID - [id number] 10:10:00 Test Item Value Reference Range Interpretation Comments PHOSPHORUS (BEAKER) 3.5 mg/dL 2.3-4.7 Specimen slightly (test code = 604) hemolyzed Forming Machine Upkeep Mechanic ID - TIGREPOCT-GLUCOSE [id number] 10:01:00 Test Item Value Reference Range Interpretation Comments POC-GLUCOSE METER 108 mg/dL 70-110 : TESTED A T [facility] 6720 (BEAKER) (test code = NORM Tenorio [facility], 1538) [address]: Forming Machine Upkeep Mechanic/Techni won ID = [id number] for Levy Vera CBC (HEMOGRAM ONLY)2021-01-23 09:50:00 [...] H (test code = 413) BASIC METABOLIC [id number] 04:53:00 Test Item Value Reference Range Interpretation [...] S NOT APPLICABLE FOR DIALYSIS PATIEN TS. Forming Machine Upkeep Mechanic ID - [id number] 04:53:00 Test Item Value Reference Range Interpretation Comments MAGNESIUM (BEAKER) (test code = 2.2 mg/dL 1.6-2.6 627) Forming Machine Upkeep Mechanic ID - [id number] 04:53:00 Test Item Value Reference Range Interpretation Comments PHOSPHORUS (BEAKER) (test code = 2.9 mg/dL 2.3-4.7 604) Forming Machine Upkeep Mechanic ID - DBPROTHROMBIN TIME/[id number] 04:43:00 Test Item Value Reference Range Interpretation Comments PROTIME (BEAKER) 24.0 seconds 11.9-14.2 H (test code = 759) INR (BEAKER) (test 2.17 See_Comment [Automat ed message] code = 370) The system [employer] generated this result transmitted ref erence range: <=5.90. The reference range was not used to int erpret this result as normal/abnormal . RECOMMENDED COUMADIN/WARFARIN INR THERAPY RANGESSTANDARD DOSE: 2.0 - 3.0 Includes: PROPHYLAXIS for venous thrombosis, systemic embolization; TREATMENT for venous thrombosis and/or pulmonary embolus.HIGH RISK: Target INR is 2.5-3.5 for patients with mechanical heart valves.[id number] 04:43:00 Test Item Value Reference Range Interpretation Comments PARTIAL THROMBOPLASTIN TIME 46.2 seconds 22.5-36.0 H (BEAKER) (test code = 760) CBC W/PLT COUNT & AUTO [id number] 04:38:00 Test Item Value Reference Range Interpretation [...] 0-0 (test code = 413) LACTIC ACID, [id number] 04:27:00 Test Item Value Reference Range Interpretation Comments LACTATE BLOOD 2.2 mmol/L 0.5-2.2 Specimen sligh tly ARTERIAL (2) (BEAKER) hemoly zed (test code = 2874) Forming Machine Upkeep Mechanic ID - DBBLOOD GAS, [id number] 04:14:00 Test Item Value Reference Range Interpretation [...] (test code = 1819) 60.0 OXYGEN SATURATION, [id number] 04:14:00 Test Item Value Reference Range Interpretation Comments O2 SATURATION (MEASURED) (BEAKER) 67.7 % (test code = 1455) CALCIUM, [id number] 04:14:00 Test Item Value Reference Range Interpretation Comments CALCIUM IONIZED (BEAKER) (test 1.18 mmol/L 1.12-1.27 code = 698) PH, BLOOD (BEAKER) (test code = 7.50 1810) RAD, CHEST, 1 VIEW, NON [id number] 03:56:00Reason for exam:->chest tubes, s/p cardiac surgeryShould this be performed at the bedside?->Yes [facility] 1975 Sex: MFINAL REPORT RAD, CHEST, 1 VIEW, NON DEPT INDICATION: chest tubes, s/p cardiac surgery COMPARISON: Prior day's exam FINDINGS: Portable frontal view of the chest. IMPRESSION: Support Lines: Stable. Lungs and pleura: Unchanged airspace and pleural opacities. No pneumothorax.Heart and mediastinum: Stable contours. Stable surgical changes.Additional findings: None. Signed: Sae Pinon Verified Date/Time: 01/23/2021 03:56:28 [id number] 01:12:00 Test Item Value Reference Range Interpretation Comments MAGNESIUM (BEAKER) 1.6 mg/dL 1.6-2.6 Specimen slightly (test code = 627) hemolyzed Forming Machine Upkeep Mechanic ID - DBBASIC METABOLIC [id number] 01:12:00 Test Item Value Reference Range Interpretation [...] S NOT APPLICABLE FOR DIALYSIS PATIEN TS. Forming Machine Upkeep Mechanic ID - DBLACTIC ACID, [id number] 01:08:00 Test Item Value Reference Range Interpretation Comments LACTATE BLOOD 2.9 mmol/L 0.5-2.2 H Specimen sligh tly ARTERIAL (2) (BEAKER) hemoly zed (test code = 2874) Forming Machine Upkeep Mechanic ID - DBCALCIUM, [id number] 00:35:00 Test Item Value Reference Range Interpretation Comments CALCIUM IONIZED (BEAKER) (test 1.17 mmol/L 1.12-1.27 code = 698) PH, BLOOD (BEAKER) (test code = 7.50 1810) BLOOD GAS, [id number] 00:35:00 Test Item Value Reference Range Interpretation [...] FIO2 (BEAKER) (test code = 1819) 60.0 [id number] 21:21:00 Test Item Value Reference Range Interpretation Comments PARTIAL THROMBOPLASTIN TIME 54.6 seconds 22.5-36.0 H (BEAKER) (test code = 760) PROTHROMBIN TIME/[id number] 21:20:00 Test Item Value Reference Range Interpretation Comments PROTIME (BEAKER) 28.7 seconds 11.9-14.2 H (test code = 759) INR (BEAKER) (test 2.73 See_Comment [Automat ed message] code = 370) The system [employer] generated this result transmitted ref erence range: <=5.90. The reference range was not used to int erpret this result as normal/abnormal . RECOMMENDED COUMADIN/WARFARIN INR THERAPY RANGESSTANDARD DOSE: 2.0 - 3.0 Includes: PROPHYLAXIS for venous thrombosis, systemic embolization; TREATMENT for venous thrombosis and/or pulmonary embolus.HIGH RISK: Target INR is 2.5-3.5 for patients with mechanical heart valves.[id number] 21:20:00 Test Item Value Reference Range Interpretation Comments FIBRINOGEN LEVEL (BEAKER) (test 228 mg/dl 225-434 code = 658) [id number] 21:02:00 Test Item Value Reference Range Interpretation Comments PHOSPHORUS (BEAKER) (test code = 4.2 mg/dL 2.3-4.7 604) Forming Machine Upkeep Mechanic ID - DBLACTIC ACID, [id number] 21:00:00 Test Item Value Reference Range Interpretation Comments LACTATE BLOOD ARTERIAL (2) 3.6 mmol/L 0.5-2.2 H (BEAKER) (test code = 2874) Forming Machine Upkeep Mechanic ID - DBCBC (HEMOGRAM ONLY)2021-01-22 20:50:00 Test [...] H (test code = 413) BLOOD GAS, [id number] 20:37:00 Test Item Value Reference Range Interpretation [...] (test code = 1819) 60.0 OXYGEN SATURATION, [id number] 20:37:00 Test Item Value Reference Range Interpretation Comments O2 SATURATION (MEASURED) (BEAKER) 45.7 % (test code = 1455) HGB/HCT (H&H) - STAT [id number] 20:37:00 Test Item Value Reference Range Interpretation Comments HEMOGLOBIN (BEAKER) (test code = 8.7 GM/DL 13.0-16.8 L 410) HEMATOCRIT (BEAKER) (test code = 26.0 % 40.0-50.0 L 411) GLUCOSE-STAT [id number] 20:36:00 Test Item Value Reference Range Interpretation Comments GLUCOSE RANDOM (BEAKER) (test code 110 mg/dL 70-110 = 652) SODIUM NA-STAT [id number] 20:36:00 Test Item Value Reference Range Interpretation Comments SODIUM (BEAKER) (test code = 381) 136 meq/L 136-145 POTASSIUM-STAT [id number] 20:36:00 Test Item Value Reference Range Interpretation Comments POTASSIUM (BEAKER) (test code = 4.2 meq/L 3.6-5.5 379) CT, CHEST, WITH [id number] 20:16:00Unlisted Reason for Exam - Click Yes and Enter Reason Below->No [facility] 1975 Sex: MFINAL [...] on 01/22/2021 8:01 PM. Signed: Red Pinon [facility] Verified Date/Time: 01/22/2021 20:16:28 CT, [id number] 20:16:00Unlisted Reason for Exam - Click Yes and Enter Reason Below- >YesUnlisted Reason for Exam->ruleout bleedWill this procedure require oral contrast?->No [facility] 1975 Sex: MFINAL [...] on 01/22/2021 8:01 PM. Signed: Red Pinon MDReport Verified Date/Time: 01/22/2021 20:16:28 CT chest with [...] Signed: Sae Pinon Verified Date/Time: 01/22/2021 20:16:28 [facility] [id number] 20:16:00Interface, External Ris In - 01/22/2021 8:19 [...] Signed: Sae Pinon Verified Date/Time: 01/22/2021 20:16:28 [facility] [id number] 20:16:00 Interface, External Ris In - 01/22/2021 [...] on 01/22/2021 8:01 PM. Signed: Sae Pinon MDReport Verified Date/Time: 01/22/2021 20:16:28 [facility] [id number] 20:16:00Interface, External Ris In - 01/22/2021 8:19 [...] telephone on 01/22/2021 8:01 PM. Signed: S[facility]onthe [facility] [place] Verified Date/Time: 01/22/2021 20:16:28 [facility] [id number] 20:16:00 Interface, External Ris In - 01/22/2021 [...] Signed: Sae Pinon Verified Date/Time: 01/22/2021 20:16:28 [facility] IV [id number] 20:16:00Interface, External Ris In - 01/22/2021 8:19 [...] Signed: Sae Pinon Verified Date/Time: 01/22/2021 20:16:28 [facility] CenterBLOOD GAS, [id number] 18:28:00 Test Item Value Reference Range Interpretation [...] 1819) 60.0 RAD, CHEST, 1 VIEW, NON [id number] 18:14:00Reason for exam:->chest tubeShould this be performed at the bedside?->Yes [facility] : 1975 Sex: MFINAL REPORT Chest one view. Clinical history: chest tube Comparison: 01/22/2021 Discussion: A frontal chest is provided. Cardiomediastinal contours are unchanged. Lines and tubes are instable position. Left pleural-parenchymal opacities are unchanged. No pneumothorax. Signed: Chino Lopez Verified Date/Time: 01/22/2021 18:14:34 Reading Location: [facility] B1 C013X Ortho Consult Reading Room -GLUCOSE [id number] 16:43:00 Test Item Value Reference Range Interpretation Comments POC-GLUCOSE METER 88 mg/dL 70-110 : TESTED A T [facility] 6720 (TAMARA) (test code = NORM [place], 1538) 369[address]: Forming Machine Upkeep Mechanic/Techni won ID = [id number] for Levy Cruz 2D Echo W/Doppler(CW/PW/Color)2021-01-22 15:11:52Ejection FractionSLEH ECHO HEARTLAB MKCKESSON CPACSInterface, External Ris In - 01/22/2021 3:12 PM CD TTransthoracic Echocardiography Report (TTE) Demographics Patient Name CROW KAUR Date of Study 01/22/2021 RYAN SR. Gender Male Visit Number [id number] Race Unknown Number [id number] Number Date of 1975 Referring Jes Ramos NP Physician Age 45 year(s) Medical Unit Secretary Jeffrey Montes CS Hostel Parent Olvin Butler Interpreting Swati Magallanes Physician Procedure Type of Study TTE procedure:2DECHO [...] Valve TR Velocity: 2.68 m/s TR Gradient: 2 8.64 mmHgSt. [facility] Center2D Echo W/Doppler(CW/PW/Color)2021-01-22 15:11:52Ejection FractionSLEH ECHO HEARTLAB MKCKESSON CPACSInterface, External Ris In - 01/22/2021 3:12 PM CDTTransthoracic Echocardiography Report (TTE) Demographics Patient Name CROW KAUR Date of Study 01/22/2021 RYAN SR. Gender Male Visit Number [id number] Race Unknown Room Number C823 Number Date of 1975 Referring Jes Ramos NP Physician Age 45 year(s) Medical Unit Secretary Jeffrey Montes [facility] Hostel Parent Olvin Butler Interpreting Swati Magallanes Physician MDProcedure Type of Study TTE procedure:2DECHO W DOPPLER(CW/PW/COLOR) (STAT) Indications:Eval EF Functi on.Clinical HistoryESRDHypertension01/11/21 MVR - 31mm SJM Master SeriesHGB [...] chamber size is small . Global RV systolicfunction is depressed . The RV wall thickness [...] is normal . Pericardium A small posterior pericardialeffusion is present . Pericardial hematoma anterior is [...] TR Velocity: 2.68 m/s TR Gradient: 28.64 mmHgSt. Mary Medical Center2D Echo W/Doppler(CW/PW/Color)2021-01-22 15:11:52Ejection FractionSLEH ECHO HEARTLAB MKCKESSON CPACSInterface, External Ris In - 01/22/2021 3:12 PM CD TTransthoracic Echocardiography Report (TTE) Demographics Patient Name CROW KAUR Date of Study 01/22/2021 RYAN SR. Gender Male Visit Number [id number] Race Unknown Number [id number] Number Date of 1975 Referring Jes Ramos NP Physician Age 45 year(s) Medical Unit Secretary Jeffrey Montes [facility] Hostel Parent Olvin Butler Interpreting Swati Magallanes Physician Procedure Type of Study TTE procedure:2DECHO [...] LV SVI is reduced. Left Atrium LA sizeis severely enlarged (>48 ml/m2) . Right Ventricle [...] TR Velocity: 2.68 m/s TR Gradient: 28.64 mmHgSt. Mary Medical CenterBLOOD GAS, [id number] 15:01:00 Test Item Value Reference Range Interpretation [...] 1819) 60.0 CBC W/PLT COUNT & AUTO [id number] 14:49:00 Test Item Value Reference Range Interpretation [...] CONCENTRATION Decreased (CELLAVISION)(BEAKER) (test code = 3438) Forming Machine Upkeep Mechanic ID - [id number] ID - Dariela OverholtUser comments: Slide comments: LACTIC ACID, [id number] 14:46:00 Test Item Value Reference Range Interpretation Comments LACTATE BLOOD ARTERIAL (2) (BEAKER) > mmol/L 0.5-2.2 HH (test code = 2874) Forming Machine Upkeep Mechanic ID - VALDEZ MBLOOD GAS, [id number] 14:45:00 Test Item Value Reference Range Interpretation [...] (BEAKER) (test code = 1819) 100.0 POCT-GLUCOSE [id number] 14:33:00 Test Item Value Reference Range Interpretation Comments POC-GLUCOSE METER 139 mg/dL 70-110 H : TESTED A T [facility] 6720 (BEAKER) (test code = NORM Tenorio [place], 1538) [address]: Forming Machine Upkeep Mechanic/Techni won ID = [id number] for Ob i, Joyce BASIC METABOLIC [id number] 14:30:00 Test Item Value Reference Range Interpretation [...] S NOT APPLICABLE FOR DIALYSIS PATIEN TS. Forming Machine Upkeep Mechanic ID - VALDEZ [id number] 14:30:00 Test Item Value Reference Range Interpretation Comments MAGNESIUM (BEAKER) (test code = 2.0 mg/dL 1.6-2.6 627) Forming Machine Upkeep Mechanic ID - VALDEZ [id number] 14:30:00 Test Item Value Reference Range Interpretation Comments PHOSPHORUS (BEAKER) (test code = 5.0 mg/dL 2.3-4.7 H 604) Forming Machine Upkeep Mechanic ID - VALDEZ MSODIUM NA-STAT [id number] 14:23:00 Test Item Value Reference Range Interpretation Comments SODIUM (BEAKER) (test code = 381) 138 meq/L 136-145 POTASSIUM-STAT [id number] 14:23:00 Test Item Value Reference Range Interpretation Comments POTASSIUM (BEAKER) (test code = 3.8 meq/L 3.6-5.5 379) CALCIUM, [id number] 14:23:00 Test Item Value Reference Range Interpretation Comments CALCIUM IONIZED (BEAKER) (test 1.18 mmol/L 1.12-1.27 code = 698) PH, BLOOD (BEAKER) (test code = 7.36 1810) GLUCOSE-STAT [id number] 14:23:00 Test Item Value Reference Range Interpretation Comments GLUCOSE RANDOM (BEAKER) (test code = 58 mg/dL 70-110 L 652) HGB/HCT (H&H) - STAT [id number] 14:23:00 Test Item Value Reference Range Interpretation Comments HEMOGLOBIN (BEAKER) (test code = 7.0 GM/DL 13.0-16.8 L 410) HEMATOCRIT (BEAKER) (test code = 21.0 % 40.0-50.0 L 411) OXYGEN SATURATION, [id number] 14:22:00 Test Item Value Reference Range Interpretation Comments O2 SATURATION (MEASURED) (BEAKER) 24.2 % (test code = 1455) [id number] 14:19:00 Test Item Value Reference Range Interpretation Comments PARTIAL THROMBOPLASTIN TIME 59.4 seconds 22.5-36.0 H (BEAKER) (test code = 760) PROTHROMBIN [id number] 14:18:00 Test Item Value Reference Range Interpretation Comments PROTIME (BEAKER) 28.1 seconds 11.9-14.2 H (test code = 759) INR (BEAKER) (test 2.66 See_Comment [Automat ed message] code = 370) The system [employer] generated this result transmitted ref erence range: <=5.90. The reference range was not used to int erpret this result as normal/abnormal . RECOMMENDED COUMADIN/WARFARIN INR THERAPY RANGESSTANDARD DOSE: 2.0 - 3.0 Includes: PROPHYLAXIS for venous thrombosis, systemic embolization; TREATMENT for venous thrombosis and/or pulmonary embolus.HIGH RISK: Target INR is 2.5-3.5 for patients with mechanical heart valves.[id number] 14:18:00 Test Item Value Reference Range Interpretation Comments FIBRINOGEN LEVEL (BEAKER) (test 237 mg/dl 225-434 code = 658) POCT-GLUCOSE [id number] 14:08:00 Test Item Value Reference Range Interpretation Comments POC-GLUCOSE METER 57 mg/dL 70-110 L : TESTED A T [facility] 6720 (BEAKER) (test code = [facility], 1538) 27156: Forming Machine Upkeep Mechanic/Techni won ID = [id number] for Atwo od (V), Anurag POCT-GLUCOSE [id number] 13:35:00 Test Item Value Reference Range Interpretation Comments POC-GLUCOSE METER 66 mg/dL 70-110 L : TESTED A T [facility] 6720 (BEAKER) (test code = [facility] [employer] [facility], 1538) 75709: Forming Machine Upkeep Mechanic/Techni won ID = [id number] for Atwo od (V), Anurag BLOOD GAS, [id number] 12:16:00 Test Item Value Reference Range Interpretation [...] (test code = 1819) 60.0 LACTIC ACID, [id number] 11:59:00 Test Item Value Reference Range Interpretation Comments LACTATE BLOOD ARTERIAL (2) (BEAKER) > mmol/L 0.5-2.2 HH (test code = 2874) Forming Machine Upkeep Mechanic ID - VALDEZ MPOCT-GLUCOSE [id number] 11:57:00 Test Item Value Reference Range Interpretation Comments POC-GLUCOSE METER 84 mg/dL 70-110 : TESTED A T [facility] 6720 (BEAKER) (test code = [facility], 1538) 16980: Forming Machine Upkeep Mechanic/Techni won ID = [id number] for RONAL BROCK POCT-GLUCOSE [id number] 11:31:00 Test Item Value Reference Range Interpretation Comments POC-GLUCOSE METER 222 mg/dL 70-110 H : TESTED A T [facility] 6720 (BEAKER) (test code = [facility], [facility]8) 05891: Forming Machine Upkeep Mechanic/Techni won ID = [id number] for At cindy (V) Anurag POCT-GLUCOSE [id number] 11:29:00 Test Item Value Reference Range Interpretation Comments POC-GLUCOSE METER < mg/dL 70-110 LL : TESTED A T [facility] 6720 (BEAKER) (test code = [facility], 1538) 21806: Forming Machine Upkeep Mechanic/Techni won ID = [id number] for RONAL BROCK POCT-GLUCOSE [id number] 11:17:00 Test Item Value Reference Range Interpretation Comments POC-GLUCOSE METER 290 mg/dL 70-110 H : TESTED A T [facility] 6720 (BEAKER) (test code = [facility], 1538) 22982: Forming Machine Upkeep Mechanic/Techni won ID = [id number] for Howard barrett Mica POCT-GLUCOSE [id number] 11:14:00 Test Item Value Reference Range Interpretation Comments POC-GLUCOSE METER 45 mg/dL 70-110 L : TESTED A T [facility] 6720 (BEAKER) (test code = [facility], 1538) 68005: Forming Machine Upkeep Mechanic/Techni won ID = [id number] for Margareth ett, Mica ECG 12 [id number] 10:49:43Interface, External Ris In - 01/22/2021 10:49 AM CDTVentricular Rate 117 BPMAtrial Rate 141 BPMQRS Duration 104 msQ-T Interval 368 msQTC Calculation(Bazett) 513 msR [place] -10 degreesT [place] 130 degreesAtrial fibrillation with rapid ventricular responseST elevation consider inferior injury or acute infarctAbnormal ECGWhen compared with ECG of 16-JAN-2021 09:23,ST less depressed in Lateral leadsConjairo RIBERA MD, RUPA ([id number]) on 01/22/2021 10:49:36 [facility] [id number] 10:49:43 Interface, External Ris In - 01/22/2021 10:49 AM CDTVentricular Rate 117 BPMAtrial Rate 141 BPMQRS Duration 104 msQ-T Interval 368 msQTC Calculation(Bazett) 513 msR [place] -10 degreesT [place] 130 degreesAtrial fibrillation with rapid ventricular responseST elevation consider inferior injury or acute infarctAbnormal ECGWhen compared with ECG of 16-JAN-2021 09:23,ST less depressed in Lateral leadsConfirbrendon RIBERA MD, RUPA ([id number]) on 01/22/2021 10:49:36 [facility] 12 [id number] 10:49:43 Interface, External Ris In - 01/22/2021 10:49 AM CDTVentricular Rate 117 BPMAtrial Rate 141 BPMQRS Duration 104 msQ-T Interval 368 msQTC Calculation(Bazett) 513 msR [place] -10 degreesT [place] 130 degreesAtrial fibrillation with rapid ventricular responseST elevation consider inferior injury or acute infarctAbnormal ECGWhen compared with ECG of 16-JAN-2021 09:23,ST less depressed in Lateral leadsConjairo RIBERA MD, RUPA (653) on 01/22/2021 10:49:36 [facility] CenterGLUCOSE-STAT [id number] 10:46:00 Test Item Value Reference Range Interpretation Comments GLUCOSE RANDOM (BEAKER) (test code = 14 mg/dL 70-110 LL 652) SODIUM NA-STAT [id number] 10:43:00 Test Item Value Reference Range Interpretation Comments SODIUM (BEAKER) (test code = 381) 139 meq/L 136-145 POTASSIUM-STAT [id number] 10:43:00 Test Item Value Reference Range Interpretation Comments POTASSIUM (BEAKER) (test code = 4.4 meq/L 3.6-5.5 379) OXYGEN SATURATION, [id number] 10:43:00 Test Item Value Reference Range Interpretation Comments O2 SATURATION (MEASURED) (BEAKER) 39.1 % (test code = 1455) HGB/HCT (H&H) - STAT [id number] 10:43:00 Test Item Value Reference Range Interpretation Comments HEMOGLOBIN (BEAKER) (test code = 7.4 GM/DL 13.0-16.8 L 410) HEMATOCRIT (BEAKER) (test code = 22.0 % 40.0-50.0 L 411) [id number] 09:58:00 Test Item Value Reference Range Interpretation Comments PARTIAL THROMBOPLASTIN TIME 100.2 seconds 22.5-36.0 H (BEAKER) (test code = 760) RAD, CHEST, 1 VIEW, NON [id number] 09:56:00Reason for exam:->left chest tube placementShould this be performed at the bedside?->Yes [facility] 1975 Sex: MFINAL [...] Ferrell Verified Date/Time: 01/22/2021 09:56:49 Reading Location: [facility] B1 C013Y CT Body Reading Room LACTIC ACID, [id number] 09:38:00 Test Item Value Reference Range Interpretation Comments LACTATE BLOOD ARTERIAL (2) 11.8 mmol/L 0.5-2.2 HH (BEAKER) (test code = 2874) Forming Machine Upkeep Mechanic ID - VALDEZ [id number] 08:42:00 Test Item Value Reference Range Interpretation Comments PARTIAL THROMBOPLASTIN TIME > seconds 22.5-36.0 HH (BEAKER) (test code = 760) BLOOD GAS, [id number] 08:41:00 Test Item Value Reference Range Interpretation [...] = 1819) 100.0 HGB/HCT (H&H) - STAT [id number] 08:31:00 Test Item Value Reference Range Interpretation Comments HEMOGLOBIN (BEAKER) (test code = 6.0 GM/DL 13.0-16.8 LL 410) HEMATOCRIT (BEAKER) (test code = 18.0 % 40.0-50.0 L 411) GLUCOSE-STAT [id number] 08:21:00 Test Item Value Reference Range Interpretation Comments GLUCOSE RANDOM (BEAKER) (test code = 75 mg/dL 70-110 652) SODIUM NA-STAT [id number] 08:21:00 Test Item Value Reference Range Interpretation Comments SODIUM (BEAKER) (test code = 381) 136 meq/L 136-145 POTASSIUM-STAT [id number] 08:21:00 Test Item Value Reference Range Interpretation Comments POTASSIUM (BEAKER) (test code = 4.0 meq/L 3.6-5.5 379) OXYGEN SATURATION, [id number] 08:21:00 Test Item Value Reference Range Interpretation Comments O2 SATURATION (MEASURED) (BEAKER) 38.7 % (test code = 1455) RAD, CHEST, 1 VIEW, NON [id number] 07:21:00Reason for exam:->s/p code, intubationShould this be performed at the bedside?->Yes [facility] : 1975 Sex: MFINAL [...] mediastinum: Stable contours.Additional findings: None. Signed: Re aCntu MDReport Verified Date/Time: 01/22/2021 07:21:40 Reading Location: [address] Neuro Reading Room HEMOGLOBIN AND [id number] 07:19:00 Test Item Value Reference Range Interpretation Comments HEMOGLOBIN (BEAKER) (test code = 5.4 GM/DL 13.7-17.5 LL 410) HEMATOCRIT (BEAKER) (test code = 18.5 % 40.1-51.0 L 411) Forming Machine Upkeep Mechanic ID - [id number] ID - [id number] ID - [id number]-type Natriuretic Factor (BNP)2021-01-22 07:17:00 Test Item Value Reference Range Interpretation Comments BNP (test code = 62445-5) 2620 pg/mL 0-100 H CARLEY (test code = CARLEY) Forming Machine Upkeep Mechanic ID - VALDEZ M Lab Interpretation (test Abnormal code = 13761-1) [facility] (BNP)2021-01-22 07:17:00 Test Item Value Reference Range Interpretation Comments BNP (test code = 11495-4) 2620 pg/mL 0-100 H CARLEY (test code = CARLEY) Forming Machine Upkeep Mechanic ID - VALDEZ M Lab Interpretation (test Abnormal code = 32083-4) [facility] (BNP)2021-01-22 07:17:00 Test Item Value Reference Range Interpretation Comments BNP (test code = 49051-4) 2620 pg/mL 0-100 H CARLEY (test code = CARLEY) Forming Machine Upkeep Mechanic ID - VALDEZ M Lab Interpretation (test Abnormal code = 25879-6) [facility] NATRIURETIC FACTOR (BNP)2021-01-22 07:17:00 Test Item Value Reference Range Interpretation Comments B-TYPE NATRIURETIC PEPTIDE 2620 pg/mL 0-100 H (BEAKER) (test code = 700) Forming Machine Upkeep Mechanic ID - VALDEZ [id number] 07:16:00 Test Item Value Reference Range Interpretation Comments PARTIAL THROMBOPLASTIN TIME > seconds 22.5-36.0 HH (BEAKER) (test code = 760) BASIC METABOLIC [id number] 07:11:00 Test Item Value Reference Range Interpretation [...] S NOT APPLICABLE FOR DIALYSIS PATIEN TS. Forming Machine Upkeep Mechanic ID - VALDEZ [id number] 07:10:00 Test Item Value Reference Range Interpretation Comments MAGNESIUM (BEAKER) (test code = 2.1 mg/dL 1.6-2.6 627) Forming Machine Upkeep Mechanic ID - VALDEZ [id number] 07:10:00 Test Item Value Reference Range Interpretation Comments PHOSPHORUS (BEAKER) (test code = 7.0 mg/dL 2.3-4.7 H 604) Forming Machine Upkeep Mechanic ID - VALDEZ MHEPATIC FUNCTION [id number] 07:10:00 Test Item Value Reference Range Interpretation [...] code = 261 U/L 6-55 H 347) Forming Machine Upkeep Mechanic ID - VALDEZ MLACTIC ACID, [id number] 07:09:00 Test Item Value Reference Range Interpretation Comments LACTATE BLOOD ARTERIAL (2) 12.6 mmol/L 0.5-2.2 HH (BEAKER) (test code = 2874) Forming Machine Upkeep Mechanic ID - VALDEZ MPROTHROMBIN TIME/[id number] 07:02:00 Test Item Value Reference Range Interpretation Comments PROTIME (BEAKER) 22.6 seconds 11.9-14.2 H (test code = 759) INR (BEAKER) (test 2.01 See_Comment [Automat ed message] code = 370) The system [employer] generated this result transmitted ref erence range: <=5.90. The reference range was not used to int erpret this result as normal/abnormal . RECOMMENDED COUMADIN/WARFARIN INR THERAPY RANGESSTANDARD DOSE: 2.0 - 3.0 Includes: PROPHYLAXIS for venous thrombosis, systemic embolization; TREATMENT for venous thrombosis and/or pulmonary embolus.HIGH RISK: Target INR is 2.5-3.5 for patients with mechanical heart valves.[id number] 07:02:00 Test Item Value Reference Range Interpretation Comments FIBRINOGEN LEVEL (BEAKER) (test 306 mg/dl 225-434 code = 658) CALCIUM, [id number] 06:48:00 Test Item Value Reference Range Interpretation Comments CALCIUM IONIZED (BEAKER) (test 1.34 mmol/L 1.12-1.27 H code = 698) PH, BLOOD (BEAKER) (test code = 7.30 1810) BLOOD GAS, [id number] 06:47:00 Test Item Value Reference Range Interpretation [...] (test code = 1819) 100.0 OXYGEN SATURATION, [id number] 06:47:00 Test Item Value Reference Range Interpretation Comments O2 SATURATION (MEASURED) (BEAKER) 48.0 % (test code = 1455) CBC W/PLT COUNT & AUTO [id number] 03:53:00 Test Item Value Reference Range Interpretation [...] PERCENT (BEAKER) (test code = 2801) PROTHROMBIN [id number] 03:47:00 Test Item Value Reference Range Interpretation Comments PROTIME (BEAKER) 16.4 seconds 11.9-14.2 H (test code = 759) INR (BEAKER) (test 1.34 See_Comment [Automat ed message] code = 370) The system [employer] generated this result transmitted ref erence range: <=5.90. The reference range was not used to int erpret this result as normal/abnormal . RECOMMENDED COUMADIN/WARFARIN INR THERAPY RANGESSTANDARD DOSE: 2.0 - 3.0 Includes: PROPHYLAXIS for venous thrombosis, systemic embolization; TREATMENT for venous thrombosis and/or pulmonary embolus.HIGH RISK: Target INR is 2.5-3.5 for patients with mechanical heart valves.LACTIC ACID, [id number] 03:35:00 Test Item Value Reference Range Interpretation Comments LACTATE BLOOD ARTERIAL (2) 8.3 mmol/L 0.5-2.2 HH (BEAKER) (test code = 2874) Forming Machine Upkeep Mechanic ID - VALDEZ [id number] 03:06:00 Test Item Value Reference Range Interpretation Comments MAGNESIUM (BEAKER) 2.2 mg/dL 1.6-2.6 Specimen slightly (test code = 627) hemolyzed Forming Machine Upkeep Mechanic ID - VALDEZ [id number] 03:06:00 Test Item Value Reference Range Interpretation Comments PHOSPHORUS (BEAKER) 4.7 mg/dL 2.3-4.7 Specimen slightly (test code = 604) hemolyzed Forming Machine Upkeep Mechanic ID - VALDEZ MBASIC METABOLIC [id number] 03:06:00 Test Item Value Reference Range Interpretation [...] S NOT APPLICABLE FOR DIALYSIS PATIEN TS. Forming Machine Upkeep Mechanic ID - VALDEZ MCALCIUM, [id number] 02:59:00 Test Item Value Reference Range Interpretation Comments CALCIUM IONIZED (BEAKER) (test 1.21 mmol/L 1.12-1.27 code = 698) PH, BLOOD (BEAKER) (test code = 7.37 1810) BLOOD GAS, [id number] 02:59:00 Test Item Value Reference Range Interpretation [...] (test code = 1819) 36.0 OXYGEN SATURATION, [id number] 02:58:00 Test Item Value Reference Range Interpretation Comments O2 SATURATION (MEASURED) (BEAKER) 30.2 % (test code = 1455) [id number] 02:09:00 Test Item Value Reference Range Interpretation Comments PARTIAL THROMBOPLASTIN TIME 64.2 seconds 22.5-36.0 H (BEAKER) (test code = 760) RAD, CHEST, 1 VIEW, NON [id number] 01:42:00Reason for exam:->chest tubes, s/p cardiac surgeryShould this be performed at the bedside?->Yes [facility] : 1975 Sex: MFINAL REPORT EXAM/TECHNIQUE: Single view frontal radiograph of the chest. INDICATION: Chest tubes, status post cardiac surgery. COMPARISON: Chest radiography from 01/21/2021. FINDINGS: Devices/Objects: Right internal jugular central venous catheter terminates in the upper right atrium. Status post aortic valve placement. Feeding tube course below the diaphragm terminates below apltp-xb-wnla. Right chest tube is present. Lungs: Substantial increase in left pulmonary opacity and pleuraleffusion. Similar right basilar predominant pulmonary opacities. Heart/Mediastinum: Unchanged cardiomegaly. No interstitial thickening. Osseous: No acute osseous process. No suspicious osseous lesion. U pper abdomen: Unremarkable. Impression: Substantial increase in left pleural effusion and pulmonary opacity. Signed: Philipp Booker MDReport Verified Date/Time: 01/22/2021 01:42:05 [id number] 23:19:00 Test Item Value Reference Range Interpretation Comments PARTIAL THROMBOPLASTIN TIME 113.7 seconds 22.5-36.0 H (BEAKER) (test code = 760) HEMOGLOBIN AND [id number] 22:54:00 Test Item Value Reference Range Interpretation Comments HEMOGLOBIN (BEAKER) (test code = 8.1 GM/DL 13.7-17.5 L 410) HEMATOCRIT (BEAKER) (test code = 26.2 % 40.1-51.0 L 411) Forming Machine Upkeep Mechanic ID - [id number] METABOLIC [id number] 22:17:00 Test Item Value Reference Range Interpretation [...] S NOT APPLICABLE FOR DIALYSIS PATIEN TS. Forming Machine Upkeep Mechanic ID - [id number] 22:17:00 Test Item Value Reference Range Interpretation Comments MAGNESIUM (BEAKER) (test code = 2.0 mg/dL 1.6-2.6 627) Forming Machine Upkeep Mechanic ID - [id number] 22:17:00 Test Item Value Reference Range Interpretation Comments PHOSPHORUS (BEAKER) (test code = 2.8 mg/dL 2.3-4.7 604) Forming Machine Upkeep Mechanic ID - DBPOCT-GLUCOSE [id number] 21:52:00 Test Item Value Reference Range Interpretation Comments POC-GLUCOSE METER 133 mg/dL 70-110 H : TESTED A T [facility] (BEAKER) (test code = [place], 1538) 39291: Forming Machine Upkeep Mechanic/Techni won ID = [id number] for VINOD CHAUDHARY Blood Culture - Routine (Left Venipuncture)2021-01-21 20:00:00 Test Item Value Reference Range Interpretation Comments Result (test code = No growth in 5 days 6463-4) [facility]2021-01-21 20:00:00 Test Item Value Reference Range Interpretation Comments Result (test code = No growth in 5 days 6463-4) [facility] Culture - Routine (Left Venipuncture)2021-01-21 20:00:00 Test Item Value Reference Range Interpretation Comments Result (test code = No growth in 5 days 6463-4) [facility] [id number] 20:00:00 Test Item Value Reference Range Interpretation Comments CULTURE (BEAKER) (test No growth in 5 days code = 1095) BLOOD [id number] 20:00:00 Test Item Value Reference Range Interpretation Comments CULTURE (BEAKER) (test No growth in 5 days code = 1095) BLOOD GAS, [id number] 19:08:00 Test Item Value Reference Range Interpretation [...] (BEAKER) (test code = 1819) 36.0 POCT-GLUCOSE [id number] 18:34:00 Test Item Value Reference Range Interpretation Comments POC-GLUCOSE METER 110 mg/dL 70-110 : TESTED A T [facility] 6720 (BEAKER) (test code = NORM [place], 1538) [address]: Forming Machine Upkeep Mechanic/Techni won ID = [id number] for RONAL PEREZ [id number] 17:37:00 Test Item Value Reference Range Interpretation [...] is 2.5-3.5 for patients with mechanical heart valves.PT/[id number] 12:20:00 Test Item Value Reference Range Interpretation [...] 2.5-3.5 for patients with mechanical heart valves.POCT-GLUCOSE [id number] 12:19:00 Test Item Value Reference Range Interpretation Comments POC-GLUCOSE METER 79 mg/dL 70-110 : TESTED A T [facility] 6720 (BEAKER) (test code = [place], 1538) 75148: Forming Machine Upkeep Mechanic/Techni won ID = [id number] for RONAL BROCK BLOOD GAS, [id number] 12:04:00 Test Item Value Reference Range Interpretation [...] FIO2 (BEAKER) (test code = 1819) 40.0 [id number] 10:02:00 Test Item Value Reference Range Interpretation Comments MAGNESIUM (BEAKER) 2.3 mg/dL 1.6-2.6 Specimen moderately (test code = 627) hemolyzed Forming Machine Upkeep Mechanic ID - [id number] 10:02:00 Test Item Value Reference Range Interpretation Comments PHOSPHORUS (BEAKER) 3.0 mg/dL 2.3-4.7 Specimen moderately (test code = 604) hemolyzed Forming Machine Upkeep Mechanic ID - [id number] 10:02:00 Test Item Value Reference Range Interpretation Comments POTASSIUM (BEAKER) 4.3 meq/L 3.5-5.1 Specimen moderately (test code = 379) hemolyzed Forming Machine Upkeep Mechanic ID - BSPOCT-GLUCOSE [id number] 08:50:00 Test Item Value Reference Range Interpretation Comments POC-GLUCOSE METER 123 mg/dL 70-110 H : TESTED A T [facility] 6720 (BEAKER) (test code = [place], 1538) 858[address]: Forming Machine Upkeep Mechanic/Techni won ID = [id number] for RONAL PEREZ pH, [id number] 08:34:00 Test Item Value Reference Range Interpretation Comments pH, Arterial (test code = 2744-1) 7.44 7.35-7.45 Lab Interpretation (test code = Normal 65030-2) [facility] [id number] 08:34:00 Test Item Value Reference Range Interpretation Comments pH, Arterial (test code = 2744-1) 7.44 7.35-7.45 Lab Interpretation (test code = Normal 94035-8) [facility], [id number] 08:34:00 Test Item Value Reference Range Interpretation Comments pH, Arterial (test code = 2744-1) 7.44 7.35-7.45 Lab Interpretation (test code = Normal 58056-4) [facility] [id number] 08:34:00 Test Item Value Reference Range Interpretation Comments PH ARTERIAL (BEAKER) (test code = 383) 7.44 7.35-7.45 RAD, CHEST, 1 VIEW, NON [id number] 07:58:00Reason for exam:->chest tubes, s/p cardiac surgeryShould this be performed at the bedside?->Yes [facility] 1975 Sex: MFINAL [...] MDReport Verified Date/Time: 01/21/2021 07:58:34 Reading Location: [facility] C013Y CT Body Reading Room BASIC METABOLIC [id number] 05:44:00 Test Item Value Reference Range Interpretation [...] S NOT APPLICABLE FOR DIALYSIS PATIEN TS. Forming Machine Upkeep Mechanic ID - VALDEZ [id number] 05:44:00 Test Item Value Reference Range Interpretation Comments MAGNESIUM (BEAKER) (test code = 2.2 mg/dL 1.6-2.6 627) Forming Machine Upkeep Mechanic ID - VALDEZ MHEPATIC FUNCTION [id number] 05:44:00 Test Item Value Reference Range Interpretation [...] code = 476 U/L 6-55 H 347) Forming Machine Upkeep Mechanic ID - VALDEZ [id number] 03:57:00 Test Item Value Reference Range Interpretation Comments PARTIAL THROMBOPLASTIN TIME 86.2 seconds 22.5-36.0 H (BEAKER) (test code = 760) PROTHROMBIN [id number] 03:56:00 Test Item Value Reference Range Interpretation Comments PROTIME (BEAKER) 14.6 seconds 11.9-14.2 H (test code = 759) INR (BEAKER) (test 1.16 See_Comment [Automat ed message] code = 370) The system [employer] generated this result transmitted ref erence range: <=5.90. The reference range was not used to int erpret this result as normal/abnormal . RECOMMENDED COUMADIN/WARFARIN INR THERAPY RANGESSTANDARD DOSE: 2.0 - 3.0 Includes: PROPHYLAXIS for venous thrombosis, systemic embolization; TREATMENT for venous thrombosis and/or pulmonary embolus.HIGH RISK: Target INR is 2.5-3.5 for patients with mechanical heart valves.CBC W/PLT COUNT & AUTO [id number] 03:54:00 Test Item Value Reference Range Interpretation [...] (BEAKER) (test code = 2801) BLOOD GAS, [id number] 03:43:00 Test Item Value Reference Range Interpretation [...] (BEAKER) (test code = 1819) 40.0 CALCIUM, [id number] 03:42:00 Test Item Value Reference Range Interpretation Comments CALCIUM IONIZED (BEAKER) (test 1.22 mmol/L 1.12-1.27 code = 698) PH, BLOOD (BEAKER) (test code = 7.43 1810) POCT-GLUCOSE [id number] 00:09:00 Test Item Value Reference Range Interpretation Comments POC-GLUCOSE METER 103 mg/dL 70-110 : TESTED A T [facility] 6720 (BEAKER) (test code = [facility], 1538) 84539: Forming Machine Upkeep Mechanic/Techni won ID = [id number] for VINOD CHAUDHARY [id number] 22:06:00 Test Item Value Reference Range Interpretation Comments MAGNESIUM (BEAKER) 2.0 mg/dL 1.6-2.6 Specimen slightly (test code = 627) hemolyzed Forming Machine Upkeep Mechanic ID - [id number] 22:06:00 Test Item Value Reference Range Interpretation Comments PHOSPHORUS (BEAKER) 3.4 mg/dL 2.3-4.7 Specimen slightly (test code = 604) hemolyzed Forming Machine Upkeep Mechanic ID - [id number] 22:06:00 Test Item Value Reference Range Interpretation Comments POTASSIUM (BEAKER) 3.9 meq/L 3.5-5.1 Specimen slightly (test code = 379) hemolyzed Forming Machine Upkeep Mechanic ID - BSPH, [id number] 21:48:00 Test Item Value Reference Range Interpretation Comments PH ARTERIAL (BEAKER) (test code = 383) 7.44 7.35-7.45 [id number] 18:35:00 Test Item Value Reference Range Interpretation Comments POTASSIUM (BEAKER) 3.8 meq/L 3.5-5.1 Specimen slightly (test code = 379) hemolyzed Forming Machine Upkeep Mechanic ID - ADMINPOCT-GLUCOSE [id number] 18:20:00 Test Item Value Reference Range Interpretation Comments POC-GLUCOSE METER 92 mg/dL 70-110 : TESTED A T [facility] 6720 (BEAKER) (test code = [facility], 1538) 06928: Forming Machine Upkeep Mechanic/Techni won ID = [id number] for RONAL BROCK [id number] 13:41:00 Test Item Value Reference Range Interpretation Comments POTASSIUM (BEAKER) 4.1 meq/L 3.5-5.1 Specimen slightly (test code = 379) hemolyzed Forming Machine Upkeep Mechanic ID - ADMINPOCT-GLUCOSE [id number] 11:57:00 Test Item Value Reference Range Interpretation Comments POC-GLUCOSE METER 91 mg/dL 70-110 : TESTED A T [facility] 6720 (BEAKER) (test code = [place], 1538) 69296: Forming Machine Upkeep Mechanic/Techni won ID = [id number] for RONAL BROCK [id number] 10:33:00 Test Item Value Reference Range Interpretation Comments MAGNESIUM (BEAKER) (test code = 2.3 mg/dL 1.6-2.6 627) Forming Machine Upkeep Mechanic ID - [id number] 10:33:00 Test Item Value Reference Range Interpretation Comments PHOSPHORUS (BEAKER) (test code = 3.2 mg/dL 2.3-4.7 604) Forming Machine Upkeep Mechanic ID - [id number] 09:38:00 Test Item Value Reference Range Interpretation Comments PARTIAL THROMBOPLASTIN TIME 54.0 seconds 22.5-36.0 H (BEAKER) (test code = 760) PH, [id number] 09:17:00 Test Item Value Reference Range Interpretation Comments PH ARTERIAL (BEAKER) (test code = 383) 7.43 7.35-7.45 HEPATIC FUNCTION [id number] 07:42:00 Test Item Value Reference Range Interpretation [...] code = 659 U/L 6-55 H 347) Forming Machine Upkeep Mechanic ID - ADMINBASIC METABOLIC [id number] 04:51:00 Test Item Value Reference Range Interpretation [...] S NOT APPLICABLE FOR DIALYSIS PATIEN TS. Forming Machine Upkeep Mechanic ID - [id number] 04:49:00 Test Item Value Reference Range Interpretation Comments MAGNESIUM (BEAKER) (test code = 2.2 mg/dL 1.6-2.6 627) Forming Machine Upkeep Mechanic ID - ADMINPROTHROMBIN TIME/[id number] 04:19:00 Test Item Value Reference Range Interpretation Comments PROTIME (BEAKER) 16.2 seconds 11.9-14.2 H (test code = 759) INR (BEAKER) (test 1.33 See_Comment [Automat ed message] code = 370) The system [employer] generated this result transmitted ref erence range: <=5.90. The reference range was not used to int erpret this result as normal/abnormal . RECOMMENDED COUMADIN/WARFARIN INR THERAPY RANGESSTANDARD DOSE: 2.0 - 3.0 Includes: PROPHYLAXIS for venous thrombosis, systemic embolization; TREATMENT for venous thrombosis and/or pulmonary embolus.HIGH RISK: Target INR is 2.5-3.5 for patients with mechanical heart valves.CBC W/PLT COUNT & AUTO [id number] 04:13:00 Test Item Value Reference Range Interpretation [...] (BEAKER) (test code = 2801) BLOOD GAS, [id number] 03:56:00 Test Item Value Reference Range Interpretation [...] (BEAKER) (test code = 1819) 40.0 CALCIUM, [id number] 03:56:00 Test Item Value Reference Range Interpretation Comments CALCIUM IONIZED (BEAKER) (test 1.17 mmol/L 1.12-1.27 code = 698) PH, BLOOD (BEAKER) (test code = 7.44 1810) RAD, CHEST, 1 VIEW, NON [id number] 03:04:00Reason for exam:->chest tubes, s/p cardiac surgeryShould this be performed at the bedside?->Yes [facility] 1975 Sex: MFINAL REPORT EXAM/TECHNIQUE: Single view frontal radiograph of the chest. INDICATION: Chest tubes, status post cardiac surgery. COMPARISON: Chest radiography from 01/19/2021. FINDINGS: Devices/Objects: Feeding tube course below the diaphragm and terminates below iygmp-yo-prfx. Endotracheal tube is unchanged. Left internal jugular central venous catheter is unchanged. Esophageal temperature probe is present. Bilateral chest tubes are present. Lungs: Increased bilateral basilar pulmonary opacities. No visible pneumothorax. Heart/Mediastinum: Unchanged cardiomegaly. Osseous: No acute osseous process. No suspicious osseous lesion. Upper abdomen: Unremarkable. Impression: Increasing bilateral basilar pulmonary opacities. Signed: Philipp Booker MDReport Verified Date/Time: 01/20/2021 03:04:06 [id number] 02:28:00 Test Item Value Reference Range Interpretation Comments PARTIAL THROMBOPLASTIN TIME 44.7 seconds 22.5-36.0 H (BEAKER) (test code = 760) [id number] 01:31:00 Test Item Value Reference Range Interpretation Comments POTASSIUM (BEAKER) 4.2 meq/L 3.5-5.1 Specimen slightly (test code = 379) hemolyzed Forming Machine Upkeep Mechanic ID - DBPOCT-GLUCOSE [id number] 00:31:00 Test Item Value Reference Range Interpretation Comments POC-GLUCOSE METER 107 mg/dL 70-110 : TESTED A T [facility] 6720 (BEAKER) (test code = NORM Tenorio [facility], 1538) 74546: Forming Machine Upkeep Mechanic/Techni won ID = [id number] for Sadia lBack HEMOGLOBIN AND [id number] 00:28:00 Test Item Value Reference Range Interpretation Comments HEMOGLOBIN (BEAKER) (test code = 7.5 GM/DL 13.7-17.5 L 410) HEMATOCRIT (BEAKER) (test code = 24.1 % 40.1-51.0 L 411) Forming Machine Upkeep Mechanic ID - [id number] 21:20:00 Test Item Value Reference Range Interpretation Comments MAGNESIUM (BEAKER) (test code = 2.0 mg/dL 1.6-2.6 627) Forming Machine Upkeep Mechanic ID - [id number] 21:20:00 Test Item Value Reference Range Interpretation Comments PHOSPHORUS (BEAKER) (test code = 3.6 mg/dL 2.3-4.7 604) Forming Machine Upkeep Mechanic ID - [id number] 21:20:00 Test Item Value Reference Range Interpretation Comments POTASSIUM (BEAKER) (test code = 3.7 meq/L 3.5-5.1 379) Forming Machine Upkeep Mechanic ID - [id number] 20:52:00 Test Item Value Reference Range Interpretation Comments PARTIAL THROMBOPLASTIN TIME 41.1 seconds 22.5-36.0 H (BEAKER) (test code = 760) PH, [id number] 20:36:00 Test Item Value Reference Range Interpretation Comments PH ARTERIAL (BEAKER) (test code = 383) 7.41 7.35-7.45 Vancomycin level, [id number] 17:55:00 Test Item Value Reference Range Interpretation Comments Vancomycin Tr (test code = 13.4 ug/mL 10-20 4092-3) CARLEY (test code = CARLEY) Forming Machine Upkeep Mechanic ID - ADMIN Lab Interpretation (test Normal code = 90170-1) [facility], [id number] 17:55:00 Test Item Value Reference Range Interpretation Comments Vancomycin Tr (test code = 13.4 ug/mL 10-20 4092-3) CARLEY (test code = CARLEY) Forming Machine Upkeep Mechanic ID - ADMIN Lab Interpretation (test Normal code = 14959-6) [facility], [id number] 17:55:00 Test Item Value Reference Range Interpretation Comments Vancomycin Tr (test code = 13.4 ug/mL 10-20 4092-3) CARLEY (test code = CARLEY) Forming Machine Upkeep Mechanic ID - ADMIN Lab Interpretation (test Normal code = 35681-1) [facility] CenterVANCOMYCIN LEVEL, [id number] 17:55:00 Test Item Value Reference Range Interpretation Comments VANCOMYCIN TROUGH (BEAKER) (test 13.4 ug/mL 10.0-20.0 code = 522) Forming Machine Upkeep Mechanic ID - [id number] 17:39:00 Test Item Value Reference Range Interpretation Comments POTASSIUM (BEAKER) (test code = 3.7 meq/L 3.5-5.1 379) Forming Machine Upkeep Mechanic ID - DBCBC W/PLT COUNT & AUTO [id number] 17:29:00 Test Item Value Reference Range Interpretation [...] H PERCENT (BEAKER) (test code = 2801) [id number] 11:58:00 Test Item Value Reference Range Interpretation Comments POTASSIUM (BEAKER) (test code = 4.0 meq/L 3.5-5.1 379) Forming Machine Upkeep Mechanic ID - ADMINPOCT-GLUCOSE [id number] 11:51:00 Test Item Value Reference Range Interpretation Comments POC-GLUCOSE METER 72 mg/dL 70-110 : TESTED A T [facility] 6720 (BEAKER) (test code = [place], 1538) 039[address]: Forming Machine Upkeep Mechanic/Techni won ID = [id number] for FIDELIA MENJIVAR [id number] 11:47:00 Test Item Value Reference Range Interpretation [...] mechanical heart valves.CBC W/PLT COUNT & AUTO [id number] 10:41:00 Test Item Value Reference Range Interpretation [...] 0-0 H (BEAKER) (test code = 413) [id number] 10:06:00 Test Item Value Reference Range Interpretation Comments PHOSPHORUS (BEAKER) (test code = 3.8 mg/dL 2.3-4.7 604) Forming Machine Upkeep Mechanic ID - ADMINBLOOD GAS, [id number] 09:13:00 Test Item Value Reference Range Interpretation [...] 1819) 40.0 CBC W/PLT COUNT & AUTO [id number] 07:00:00 Test Item Value Reference Range Interpretation [...] CONCENTRATION Adequate (CELLAVISION)(BEAKER) (test code = 3438) Forming Machine Upkeep Mechanic ID - Dariela OverholtUser comments: Slide comments:HEMOGLOBIN AND [id number] 06:48:00 Test Item Value Reference Range Interpretation Comments HEMOGLOBIN (BEAKER) (test code = 7.2 GM/DL 13.7-17.5 L 410) HEMATOCRIT (BEAKER) (test code = 23.6 % 40.1-51.0 L 411) Forming Machine Upkeep Mechanic ID - 6000POCT-GLUCOSE [id number] 06:35:00 Test Item Value Reference Range Interpretation Comments POC-GLUCOSE METER 92 mg/dL 70-110 : TESTED A T [facility] 6720 (BEAKER) (test code = [place], 1538) 11483: Forming Machine Upkeep Mechanic/Techni won ID = [id number] for MESERET ETT, SEPTEMBER CALCIUM, [id number] 05:04:00 Test Item Value Reference Range Interpretation Comments CALCIUM IONIZED (BEAKER) (test 1.13 mmol/L 1.12-1.27 code = 698) PH, BLOOD (BEAKER) (test code = 7.41 1810) BLOOD GAS, [id number] 05:01:00 Test Item Value Reference Range Interpretation [...] (test code = 1819) 40.0 COMPREHENSIVE METABOLIC [id number] 04:56:00 Test Item Value Reference Range Interpretation [...] S NOT APPLICABLE FOR DIALYSIS PATIEN TS. Forming Machine Upkeep Mechanic ID - [id number] 04:56:00 Test Item Value Reference Range Interpretation Comments MAGNESIUM (BEAKER) (test code = 2.1 mg/dL 1.6-2.6 627) Forming Machine Upkeep Mechanic ID - ADMINHEPATIC FUNCTION [id number] 04:56:00 Test Item Value Reference Range Interpretation [...] code = 995 U/L 6-55 H 347) Forming Machine Upkeep Mechanic ID - [id number] 04:28:00 Test Item Value Reference Range Interpretation Comments PARTIAL THROMBOPLASTIN TIME 39.7 seconds 22.5-36.0 H (BEAKER) (test code = 760) PROTHROMBIN [id number] 04:27:00 Test Item Value Reference Range Interpretation Comments PROTIME (BEAKER) 18.5 seconds 11.9-14.2 H (test code = 759) INR (BEAKER) (test 1.57 See_Comment [Automat ed message] code = 370) The system [employer] generated this result transmitted ref erence range: <=5.90. The reference range was not used to int erpret this result as normal/abnormal . RECOMMENDED COUMADIN/WARFARIN INR THERAPY RANGESSTANDARD DOSE: 2.0 - 3.0 Includes: PROPHYLAXIS for venous thrombosis, systemic embolization; TREATMENT for venous thrombosis and/or pulmonary embolus.HIGH RISK: Target INR is 2.5-3.5 for patients with mechanical heart valves.RAD, CHEST, 1 VIEW, NON [id number] 01:51:00Reason for exam:->chest tubes, s/p cardiac surgeryShould this be performed at the bedside?->Yes [facility] 1975 Sex: MFINAL [...] antrum versus proximal duodenum. Signed: Philipp Booker MDRthe hospital of [facility] [place] Verified Date/Time: 01/19/2021 01:51:42 RAD, ABDOMEN/KUB, 1 VIEW [id number] 01:51:00Reason for exam:->Verify corpak placementShould this be performed at the bedside?->Yes [facility] 1975 Sex: MFINAL REPORT EXAM/TECHNIQUE: Single view frontal radiograph of the chest. Supine radiograph of the abdomen. INDICATION: Feeding tube, chest tubes. COMPARISON: Chest radiography from 01/18/2021. FINDINGS: Devices/Objects: Endotracheal tube terminates about 5 cm above the nitin. Feedingtube course below the diaphragm and terminates in the gastric antrum versus proximal duodenum. Left internal jugular central venous catheter terminates near the confluence of the SVC. Aortic valve prosthesis is present. Esophageal temperature probe projects over the upper chest. Lungs: Grossly similar retrocardiac opacity. Heart/Mediastinum: Unchanged cardiomegaly. Osseous: No acute osseous process. No suspicious osseous lesion. Abdomen: Unremarkable. Impression: Grossly similar retrocardiac opacity.Feeding tube terminates in the gastric antrum versus proximal duodenum. Signed: Philipp Booker MDReport Verified Date/Time: 01/19/2021 01:51:42 POCT-GLUCOSE [id number] 01:49:00 Test Item Value Reference Range Interpretation Comments POC-GLUCOSE METER 121 mg/dL 70-110 H : TESTED A T [facility] 6720 (BEAKER) (test code = NORM Tenorio [facility], 1538) 89031: Forming Machine Upkeep Mechanic/Techni won ID = [id number] for DO PINKSeptember POCT-GLUCOSE [id number] 00:34:00 Test Item Value Reference Range Interpretation Comments POC-GLUCOSE METER 68 mg/dL 70-110 L : Will Rep eat Test: (BEAKER) (test code = Notifi dianna RN/MD: TESTED 1538) AT [facility] [address] [facility], 770 30: Forming Machine Upkeep Mechanic/Techni won ID = [id number] for MESERET DELVALLESeptember [id number] 20:31:00 Test Item Value Reference Range Interpretation Comments MAGNESIUM (BEAKER) 1.8 mg/dL 1.6-2.6 Specimen moderately (test code = 627) hemolyzed Forming Machine Upkeep Mechanic ID - [id number] 20:31:00 Test Item Value Reference Range Interpretation Comments PHOSPHORUS (BEAKER) 3.9 mg/dL 2.3-4.7 Specimen moderately (test code = 604) hemolyzed Forming Machine Upkeep Mechanic ID - [id number] 20:31:00 Test Item Value Reference Range Interpretation Comments POTASSIUM (BEAKER) 4.4 meq/L 3.5-5.1 Specimen moderately (test code = 379) hemolyzed Forming Machine Upkeep Mechanic ID - ADMINHEMOGLOBIN AND [id number] 20:15:00 Test Item Value Reference Range Interpretation Comments HEMOGLOBIN (BEAKER) (test code = 8.0 GM/DL 13.7-17.5 L 410) HEMATOCRIT (BEAKER) (test code = 25.6 % 40.1-51.0 L 411) Forming Machine Upkeep Mechanic ID - 6000PH, [id number] 20:13:00 Test Item Value Reference Range Interpretation Comments PH ARTERIAL (BEAKER) (test code = 383) 7.45 7.35-7.45 POCT-GLUCOSE [id number] 18:00:00 Test Item Value Reference Range Interpretation Comments POC-GLUCOSE METER 74 mg/dL 70-110 : TESTED A T [facility] 6720 (BEAKER) (test code = NORM [place]orio [place], 1538) 74105: Forming Machine Upkeep Mechanic/Techni won ID = [id number] for Ezra Gregorio [id number] 17:36:00 Test Item Value Reference Range Interpretation Comments POTASSIUM (BEAKER) 4.2 meq/L 3.5-5.1 Specimen slightly (test code = 379) hemolyzed SARS-CoV2/RT-PCR (Asymptomatic ONLY)2021-01-18 14:08:00 Test Item Value Reference Range Interpretation Comments SARS-COV2/RT-PCR Negative Not Detected, (test code = Negative, See 88392-6) external report for linked test SARS-COV-2 [facility] SADI PERFORMING LAB (test code = 25741-7) CARLEY (test code = Negative result for [...] of the Act. Fact Sheet for Healthcare Providers:https://www.VivoText/sites/default/f carlita/product/documents/F act_Sheet_HC_Providers_L iqj_UAHT-GeJ-7.pdf Fact Sheet for Healthcare Patients:https://www.Conductiv/sites/default/fi les/product/documents/Fa ct_Sheet_Patients_Lyra_S ARS-CoV-2.pdf Performing Laboratory:[facility], [place] [id number] [place], [place] [address]ARS-CoV2/RT-PCR (Asymptomatic ONLY)2021-01-18 14:08:00 Test Item Value Reference Range Interpretation Comments SARS-COV2/RT-PCR Negative Not Detected, (test code = Negative, See 92999-1) external report for linked test SARS-COV-2 [facility] PERFORMING LAB (test code = 52318-7) CARLEY (test code = Negative result for [...] of the Act. Fact Sheet for Healthcare Providers:https://www.VivoText/sites/default/f carlita/product/documents/F act_Sheet_HC_Providers_L sfa_VGCG-VhE-6.pdf Fact Sheet for Healthcare Patients:https://www.Conductiv/sites/default/fi les/product/documents/Fa ct_Sheet_Patients_Lyra_S ARS-CoV-2.pdf Performing Laboratory:[facility] [place] [address] [facility] ONLY[facility]2021-01-18 14:08:00 Test Item Value Reference Range Interpretation Comments SARS-COV2/RT-PCR Negative Not Detected, (test code = Negative, See 47436-4) external report for linked test SARS-COV-2 [facility] PERFORMING LAB (test code = 79066-6) CARLEY (test code = Negative result for [...] of the Act. Fact Sheet for Healthcare Providers:https://www.VivoText/sites/default/f carlita/product/documents/F act_Sheet_HC_Providers_L xks_KDVQ-UtA-3.pdf Fact Sheet for Healthcare Patients:https://www.Conductiv/sites/default/fi les/product/documents/Fa ct_Sheet_Patients_Lyra_S ARS-CoV-2.pdf Performing Laboratory:[facility] [place] [address] [facility] ([facility])2021-01-18 14:08:00 Test Item Value Reference Range Interpretation Comments SARS-COV2/RT-PCR (test Negative Not Detected, Negative, code = 4505159) See external report for linked test SARS-COV-2 PERFORMING LAB [facility] SADI (test code = 3751950) Negative result for this test determines that [...] of the Act.Fact Sheet for Healthcare Prov iders:https://www.[employer]/sites/default/files/product/documents/Fact_Sheet_HC _Nangbpnpx_Ziyw_DZRP-NmP-3.pdfFact Sheet for Healthcare Patients:https://www.[employer]/sites/default/files/product/docume nts/Gaxo_Zmnvs_Kcrpiyhj_Bvhh_BOCT-EnU-5.pdfPerforming Laboratory:[facility].[place], [place] [id number] 12:57:00 Test Item Value Reference Range Interpretation Comments POTASSIUM (BEAKER) (test code = 4.0 meq/L 3.6-5.5 379) POCT-GLUCOSE [id number] 12:40:00 Test Item Value Reference Range Interpretation Comments POC-GLUCOSE METER 81 mg/dL 70-110 : TESTED A T [facility] 6720 (BEAKER) (test code = RAYMONJOBY Tenorio [facility], 1538) [id number]: Forming Machine Upkeep Mechanic/Techni won ID = [id number] for Bent on, Gladys Sputum Culture + Gram [id number] 11:19:00 Test Item Value Reference Range Interpretation Comments Gram Stain Result 1+ gram positive cocci in (test code = 1123) pairs and clusters CARLEY (test code = 4+ Normal respiratory CARLEY) [facility] [id number] 11:19:00 Test Item Value Reference Range Interpretation Comments Gram Stain Result 1+ gram positive cocci in (test code = 1123) pairs and clusters CARLEY (test code = 4+ Normal respiratory CARLEY) [facility] Gram [id number] 11:19:00 Test Item Value Reference Range Interpretation Comments Gram Stain Result 1+ gram positive cocci in (test code = 1123) pairs and clusters CARLEY (test code = 4+ Normal respiratory CARLEY) [facility] GRAM [id number] 11:19:00 Test Item Value Reference Range Interpretation Comments GRAM STAIN RESULT <1+ WBCs (BEAKER) (test code = 1123) GRAM STAIN RESULT 0-5 epithelial cells (BEAKER) (test code = 356554) GRAM STAIN RESULT <1+ gram negative rods (BEAKER) (test code = 524825) GRAM STAIN RESULT 1+ gram positive cocci (BEAKER) (test code = in pairs and clusters 075572) 4+ Normal respiratory mendy [id number] 10:15:00 Test Item Value Reference Range Interpretation Comments PHOSPHORUS (BEAKER) (test code = 4.7 mg/dL 2.3-4.7 604) [id number] 10:09:00 Test Item Value Reference Range Interpretation Comments POTASSIUM (BEAKER) (test code = 3.8 meq/L 3.5-5.1 379) [id number] 10:09:00 Test Item Value Reference Range Interpretation Comments MAGNESIUM (BEAKER) (test code = 1.9 mg/dL 1.6-2.6 627) RAD, CHEST, 1 VIEW, NON [id number] 08:45:00Reason for exam:->pigtail chest tube placementShould this be performed at the bedside?->Yes [facility] 1975 Sex: MFINAL [...] contours. Stablesurgical changes.Additional findings: None. Signed: JR Tate Robert MDReport Verified Date/Time: 01/18/2021 08:45:59 Reading Location: [facility] Radiology Reading Room [id number] 07:01:00 Test Item Value Reference Range Interpretation Comments MAGNESIUM (BEAKER) 2.1 mg/dL 1.6-2.6 Specimen slightly (test code = 627) hemolyzed COMPREHENSIVE METABOLIC [id number] 06:55:00 Test Item Value Reference Range Interpretation [...] APPLICABLE FOR DIALYSIS PATIEN TS. LACTIC ACID, [id number] 05:22:00 Test Item Value Reference Range Interpretation Comments LACTATE BLOOD ARTERIAL (2) 1.0 mmol/L 0.5-2.2 (BEAKER) (test code = 2874) HEMOGLOBIN AND [id number] 04:50:00 Test Item Value Reference Range Interpretation Comments HEMOGLOBIN (BEAKER) (test code = 8.4 GM/DL 13.7-17.5 L 410) HEMATOCRIT (BEAKER) (test code = 26.9 % 40.1-51.0 L 411) Forming Machine Upkeep Mechanic ID - [id number], CHEST, 1 VIEW, NON [id number] 04:47:00Reason for exam:->chest tubes, s/p cardiac surgeryShould this be performed at the bedside?->Yes[facility] : 1975 Sex: MFINAL [...] them to the physician. Signed: Sharon Krishnan Verified Date/Time: 01/18/2021 04:47:41 BLOOD GAS, [id number] 03:37:00 Test Item Value Reference Range Interpretation [...] (BEAKER) (test code = 1819) 40.0 PROTHROMBIN TIME/[id number] 03:29:00 Test Item Value Reference Range Interpretation Comments PROTIME (BEAKER) 22.0 seconds 11.9-14.2 H (test code = 759) INR (BEAKER) (test 1.95 See_Comment [Automat ed message] code = 370) The system [employer] generated this result transmitted ref erence range: <=5.90. The reference range was not used to int erpret this result as normal/abnormal . RECOMMENDED COUMADIN/WARFARIN INR THERAPY RANGESSTANDARD DOSE: 2.0 - 3.0 Includes: PROPHYLAXIS for venous thrombosis, systemic embolization; TREATMENT for venous thrombosis and/or pulmonary embolus.HIGH RISK: Target INR is 2.5-3.5 for patients with mechanical heart valves.[id number] 03:29:00 Test Item Value Reference Range Interpretation Comments PARTIAL THROMBOPLASTIN TIME 36.3 seconds 22.5-36.0 H (BEAKER) (test code = 760) CBC W/PLT COUNT & AUTO [id number] 03:23:00 Test Item Value Reference Range Interpretation [...] PERCENT (BEAKER) (test code = 2801) POCT-GLUCOSE [id number] 01:17:00 Test Item Value Reference Range Interpretation Comments POC-GLUCOSE METER 80 mg/dL 70-110 : TESTED A T [facility] 6720 (BEAKER) (test code = RAYMONJOBY [place]ULTZ [place], 1538) [id number]: Forming Machine Upkeep Mechanic/Techni won ID = [id number] for MESERET ETSeptember [id number] 22:01:00 Test Item Value Reference Range Interpretation Comments PHOSPHORUS (BEAKER) 5.1 mg/dL 2.3-4.7 H Specimen slightly (test code = 604) hemolyzed [id number] 22:01:00 Test Item Value Reference Range Interpretation Comments MAGNESIUM (BEAKER) 1.9 mg/dL 1.6-2.6 Specimen slightly (test code = 627) hemolyzed [id number] 22:00:00 Test Item Value Reference Range Interpretation Comments POTASSIUM (BEAKER) 4.0 meq/L 3.5-5.1 Specimen slightly (test code = 379) hemolyzed PH, [id number] 20:14:00 Test Item Value Reference Range Interpretation Comments PH ARTERIAL (BEAKER) (test code = 383) 7.49 7.35-7.45 H HEMOGLOBIN AND [id number] 20:04:00 Test Item Value Reference Range Interpretation Comments HEMOGLOBIN (BEAKER) (test code = 8.1 GM/DL 13.7-17.5 L 410) HEMATOCRIT (BEAKER) (test code = 26.0 % 40.1-51.0 L 411) Forming Machine Upkeep Mechanic ID - [id number]-GLUCOSE [id number] 18:31:00 Test Item Value Reference Range Interpretation Comments POC-GLUCOSE METER 81 mg/dL 70-110 : TESTED A T [facility] 6720 (BEAKER) (test code = NORM Jona SHULTZ [place], 1538) [id number]: Forming Machine Upkeep Mechanic/Techni won ID = [id number] for RONAL BROCK Tissue [id number] 16:48:00 Test Item Value Reference Range Interpretation Comments Case Report (test code Surgical Pathology = 104) Report Case: [id number] Authorizing Provider: Tereza Galvez, Collected: 01/11/2021 03:53 PM Ordering Location: [address] Received: 01/12/2021 08:17 AM Pathologist: Fredi Hermosillo MD Specimen: Mitral Valve, Mitral Valve (send for C/S first) DIAGNOSIS (test code = [id number] 3220) FuZzEwMzNcZnRuYmpcdWMx IHtccnRmMVxlcGljOTIwMl szgvViLFPygNHpZ5Jfynqm HUexPD0xEH8xbOzfkTNsnY YbWEUuKvKkq0ziv047pXRi t9dkKZQZkgsipKo2yIsiC9 8af4D0MhgwU66bvAPxWTdb bGFpblxmczIwIEhFQVJULC BNSVRSQUwgVkFMVkUsIFZB LYBOPRXUZE1GXYjiuNXlOB UOLpKIOv7BCVKOHPTENDHT DIsELJCMEE7ZAWYHLvYAGR 1LKnioFSYUPJ6LTvXJHXCp QhBGLNDZVAVLBLHGM2YGNB BhciBMRUFGTEVUUyBXSVRI NTYDV5UEYQ2SEGFAPWEKKG JSNBSIQcdGPYNKYUDMW0AE YHUUP8CFHiHeoTYunSqpyw WpEBifd0SvOFxaLVMfTG1f eHjhPZVkEK2zKKSgG5xudX 0izkc0GuMgSSWuWxY5ADDr jmK4Whf9HFWfZDytv7yok5 PpWOOpLXg1fWwcRjXdFGNo k8cmiyIyKrVtPNCqJYGdID TdzNPhB830p1bgb6xsbhAw rZV5RUQdTFS0WWygmlYpwu V9XUlzxIAnZhO3XMvokmRq JOoiskKpyiSeCxd4IQYsG3 48GWY7mLyxp4fnPBL4ABNf GOYmCiAqAl0tnNYjV642VP XbYSZKAZPznIq1LAFniuGs atSmeJFIw686E497r2csOH NxsdLndNyIwwjrh2jjR572 XHBhcGVydzEyMjQwXHBhcG SziPL7LCPvYZ7pgzdlWPjl ITyaMKHstlM5XRFmyLDdY3 SgBFZwRH6hunvzLHT5UBxi FRHfFOE0BvJvASBiw9Myvr q7DhHqfv6nmo98JPA0i9Zy wKmrEPP7AIP6BuFhIt6qyB NhIROcWC5mMqMskBRuUJRj wn16kLwnHJwkFRA0HJLqau Yjd5Fih6slDrCnhcZyQ9xv O2CzJFEjYXHxUVQlKcAcfu Kct4Kja6DhlMYalZx7c8eo YGEoMAOvkXaro9niHYC5NG ZihFNeP4mqoD3aBXAeOT3h yptpc8jgHVueKFbgAYKcmV S9ncS6JJJfmIBrS0LnpG2p RWPeERteRTBjdea6KcZbWw 9vdGVyeTcyMFxzYmtwYWdl XHBnbmNvbnRccGduZGVjXH BsYWluXHBsYWluXGYwXGZz MjRccWxcbGFuZzEwMzNcaG ljaFxmMVxkYmNoXGYxXGxv K5eiKfUmKrBwBfh8HIXvvE KnFOAiTdj5TUIztGPkUTJX iGqidL7vEVFqvHboyO9oiR G1LMZnzfWflJCLtV6hNBYS xS8hWaQ4GaBuXoE7QQm0VN FccGFyfX0= COMMENT (test code = p2xabXWvEJQvxUR5NoDcLB 3355) Ymm4jpg9NaxYZskUEtVAhn gNRtsxUhsp57iVN5qR50LN 9mUSWgEbQ3GENclaQ8Wfj2 EXYgTGYspSIjS332l6xce5 trndOfcIF3fHapDJQuXEAo YWluXGZzMjAgVGhlIGJhY3 YetcqdPILeupEusC6tAFHp ftM9oLJypnUpGGPrwInfch UjveOvWFSiUP9yvbT5GDVr HU5xLZQtywnhXaw1FBQ1EH dwlX3dXProjAkltGwkq1Wd ZYezFG5wOKI2ZGwberLjha CvG70DAYC4CXrsjukfYxD4 KUBnPECclvXst41plaJyiS Bdi1CgxB8za7r5PFqwVGHx FYVfj9QnU99yC9dmJDmkHO J9 CPT Code(s) (test code n1otfGYwPFOgpHE6TmInBY = 3357) Twt3vyd2XuuZFokCWqEWqk oNVenrCgkx43cVZ0oM41JD 9rQNFbSrI6NAZvsnN8Ilp6 AENhZWXksSAoF496v3was0 mladMfeXU7iPmuBXSaNYYt NBhqHVTyYyYbJPeaRHX0XD z8IvJbKMfkM8heSER2 CLINICAL HISTORY (test n0nnvMUgDEEbnZY7TtAwBU code = 3356) Azy8qwy2BqzPWwjTJmTXqu qPRtyuYser98vDA1oS54VO 9qVFRmNkL5JQNyuiO4Bfz1 NLSkUYLvzCVeG711e1lee3 nkgqQwiAZ6iDylCRUcFMSk KYxjUFJrGuMmNN2wf8Ngiv PhnPxqYC0oST6taPWauAJ0 VPx4JQPhsZToyP== SPECIMEN SOURCE (test c6eisPFoSHJcvVV9IoYmZO code = 3377) Fsw0tng9WleKLwzOGzUTky tOWyjeLawh73mMK4yL87CJ 3oXLOuIvW7RNObzhK2Fsx4 RAOjWTUfuKEjQ086j8kuy9 joklNjeTW5fSqlMMKcGDWt GNmwDGAbPvRfZZo0bsGgMK ZhbHZlIFxwYXJ9 GROSS DESCRIPTION (test u7uciJCtVLVhdAUwYpDaTZ code = 3366) EiZJAgd4fkIIAetXEhTmZx MzNcZnRuYmpcdWMxXGRlZm Zjj6oqu870rHKqu5hxLSPY hvhxxRo2m6gpPDLtJjX0bZ UbXVucT5kxjeEokWWqKXBz LLi4yI96ZYDvdC9cdJOgIN kitiBcZoP8RMgvRJDyIbF8 KZPfsIPzJMCmD6sjZGFiGG yfSMScOAdyuRUmDXH7oOqy k2K8yORkrCUfvMnwErTgVu XpCVIWl8XlNOp4wUrcZ2Pq WFZhHsX5oHNqQLBfKWjhJP MfASQjqcV1yW18WAvvzmM2 gPZdn4Xld78py720mB6axB WjWFK0PWCpSWKbjUCgNJUb QPN8EFWudZPgM0d6VwBquW PlK0W2OiMjcDYeQ7H8XxPu oVRcY0N5VrLcyNWdKASchP ElTv2wdYEosQGhuy9fje04 MEV4q6PtmKthRET9ZNJ9Ry PnVr2rlTMeECAiUHLjlORe PFVzQV8deGBpQPCbjP0zcd xjXHBnYnJkcmhlYWRccGdi gyZiTm4yoCwrNTE6KStfN3 yorG8gGyD9NNsfU4mmoG5k VJc9VWgnyBE5BAKsbZ8aCQ 8jskgfx3onOgCxUW3qjelw p1nxSvEoQO9bybb6d9ydTs VeTT5ckyqnu0taFoKbQHhr NHNckejvQBPny0HekmswDL Ggd1ChQ3SvoDznY70pvVki T81vPTVaxZwyfP3tkIdvqX 5cZjBcZnMyNFxwYXJkXHBs YWluXGYxXGZzMjBcbGFuZz EwMzNcaGljaFxmMVxkYmNo CBGfAKuwN7sqDxMwAeSdXG BSZWNlaXZlZCBmcmVzaCBs YWJlbGVkIHdpdGggdGhlIH ErcMpzykHszbFdDQ0vZHXh ZNIbK0AzTOTrU04gAIRusO 1iZXIgbnVtYmVyIGFuZCAi dIk0ztZjAJIurFOzXwQsak XxYBAhKVM8WZDsARB0BJIn COUnaDCpU4wgUSfifVElm8 YgdGFuLXBpbmsgdmFsdnVs PJNqeRadl6KhPRqaeMinNE U4FTQkUOUeB6Qzc1RvqWC0 swWvvLTaq5UrqTFoM4xbzo JiXSX3SI5elP5bQG8jLDlf IHNwZWNpbWVuIGlzIHNlcm qzpJh4QUItZ0Ppi80fHEJ3 gtGwBWPzEPkqLqPaR5q6VH zrzKwfxtZ1mkK0HJ7uSYFt dh2kHJC6oTKmoGKrJXSudc X0nJWzYCVgtSPyBeidWOOt k61qNU2sYXT5wwhzQyG9uI X9qsZhFlJlE52iCCEtjJTz g3KygWT2tXUvLBBkX0Ejc1 6kIRQfUNQglGPwbAJ9YAHo qG8jM8Idh1I0sJItHWUvZf 5apU98yE3lLRPswWXtASCb K1IeO2ysiLOgaObhoo6cON yEQ4Q8JOJvlf0= MICROSCOPIC DESCRIPTION f1exnKDkEZMksAE0VqFuNJ (test code = 3371) Wsv2vgn8XvuADafGZqJOxm eQRgxqTfjh05dRT3gT65HZ 2kXOLuBdV2WDHbdiE9Cof5 DUBcMGYfjAGyD074j9via5 yicuUhsBC6mClwBDOyWTXf DMtwFFLjHkIoOCVhFy5qpL VkXHBhcn0= SPECIAL STUDIES (test b7isoBMhRZAvf7ezCDLziH code = 3376) FuZzEwMzNcZnRuYmpcdWMx RKlcwxUwAAecc8IzB5NzPp AwMFxhbnNpXGRlZmxhbmcx HSPwFSB3mzDpPXWfYVimII CrWBwcBs4gpYWqdHayLmHg NDNsm6mqvfUAhanwpSy0j1 mgUBUnDnK5qKJaQBhbS9ac hiKeaSObW1FcnOVjhYi3a0 xrYlDlFoD0uVGxSDskK2ro juXtiQRdOOUhAUw6xK83CI CfpY4kcEBnUXzcrmGaTeC3 TYnhVQStBjB5UAHmyRLaRB EnR7liIWWuKYqjVBZkXEji gEHqPHY5wOujk1V2aZJwvA QnxArpXeFaBdDmVeHAc5My WOg2xVodR0MjCYXuIiO9tL QgUGFyYWdyYXBoIEZvbnQ7 jDkakrKqn11gcKLySWIcNT LmGwHreOssOSQsKTZTh7Zn fCahNUV1pSp8dUrzOhtuUI V9Ius0WC2ybf59ipu6sOjs JCIgnavdVkG6UHqtQZOclx kuLJw6ZLydLMBhiBO2WUOm jNPjU4IiUMEsFU7rfzt5BM Q3UEktICTbAvO9HTYejMCr YHZioDuzMFsvq672BKP3Zz OpWA4xX8Rnh1B3uD5kcMUh WVFbqWEbKqQuEJFzce9kdN MyDTnij9GtVIK4dtH5fMAm vBQeIXTlYA02Atqrx1DhWi ktt8OzQ76okKX3XTxsr4jl GY3jFdA6ddTqRPyeg6nqrP 4sGrB6VSfvPU3sCB1eTRYi lD1clkaxMVZvErFtaruqEK NxqHhmxpUeSo7pjKidXZA0 ZVykF1nbuQ1aVrQ0SDblW3 sosT6dLGc6KMtnaUH8UPHo zN7uZC6yoawon5slTIvfFY xeEJCglpP5awQ3MIZetIPv C7WozI5zYEXnIP0kiqoxc5 gqNLT4FBdfSJNcVVM5ZiRf IFBwj4Zvoxe4YtOqx3RnzJ MkACpbJ78lw007BLGnnvTr V4fasFLfergsqOJpasufXR lcbkE8FEObQIYyWRrfPBIl XGZzMjJcbGFuZzEwMzNcaG ljaFxmMVxkYmNoXGYxXGxv P8uwCvJoK0TiEQByVfHhKK csRZbnhXGoaKZviEG2aI8j XM6zAVXapWDwE3RnFAEuur VhkTCtVXJ5oEQgmHHhBQ6v KIgvoCOjc2exw8LyX2hnpX cznRW9RC4tVNEoKZFdOAlo i9ZhhT8gKieamAJwcoraEO xmczIyXGxhbmcxMDMzXGhp U6pdSrGkXKVqsUkjKCpso2 NoXGYxXGNmMlxmczIyXGx0 cmNoXHBhclxwYXJccGxhaW 2eJxQjCgWlBqmyPU8kPBLt O2uowXClPJExZSFpQ8fvLm YahX4jcYhqKRejQzFfIcNy JuWGl653gg8tZTDqbOTixp HUbBJjeS1mBUsiVBuuAGoo uQCoKZfgj3poWEGio6m2lN OoKKSmobMik7taMOhgclHb UKIytWWgqENcMREre67cYU xtrDcpsKtuADYji4FeuZmd o5TpOlXsDSppx1NuF40bcD JvbCBzbGlkZXMgcnVuIGFs s68zk9ngXQFbCyD1lBXdqL B9kVRanAPfg4OjqLncIHJp r9rgFYXmnx0svozezPOuc4 RgpS7xuxlgGEtgwAPaqfTo BBNlm0s6uTFvFQHkSSVtFA ftfKl4UOHey242ka3fwkK3 mZXvCZA6RSowGSMaTXHvgj UgZXZhbHVhdGVkXHBsYWlu XGYxXGZzMjJcbGFuZzEwMz NcaGljaFxmMVxkYmNoXGYx BYsjL1hiLnGqF9ZyIXWeCe AboQOiS6clvNCgPTOfYSyy XGYxXGZzMjJcbGFuZzEwMz NcaGljaFxmMVxkYmNoXGYx PAtfD4grSxBnK4ZqJLNmCq IgIFxwbGFpblxmMVxmczIy YCxtbproGLKrKEdgR4hcKi YcWKIntPzjWRafl0IcJLFn DEEjEywuwfOkAPo8slQjEM BhclxwbGFpblxmMVxmczIy CWxygblfSEMdRKajG4kgRo ApTTNuiYivVSwgl4KjKMEp XGNmMlxmczIyIEltbXVub2 zky3DfI2ohqZomzOX6KPHg D1zxdDZzdIU6IMF4aT9nPX keetXoZSFwz0VfNLWrIZYm RdS4qF0zWEH2VqGXrRghEH BsYWluXGYxXGZzMjJcbGFu ZzEwMzNcaGljaFxmMVxkYm KyUOGsVDmiZ6xdZeWvY8Ge MVHtBpRfwTptZYqyWFj9Qe xwbGFpblxmMVxmczIyXGxh pxuiSXJyRPmiD9ntZoUrRT NwrZczEPhxh4GhMHJtLHRy MlxmczIyIHMgTWVkaWNhbC OTCO83ILZiHGPuvFulmT7s sUDPTAZfhvN5f3O9IRgdWE RsSCh2TXrqzpLwSZRlcS0e OIGvMG1cQBo6jgJkSMElt5 JwUQ1iTNNcbWKuKIM7HQLo j5PpZ2Qzt6TzFNIkXIEzdt 7ledEhXjIBmQIqOHPuvb50 JECrIP8vD5roIXJeSKVajo AzrLBib7ZaEBPewCI1yLDo KK0TNlOAl43uFJMyTHSUzm AjJSPprSbsmEY9gfZ7lU5k LiBUaGUgRkRBIGhhcyBkZX Ukij1qulQrGGKgLLFml0Qf pPQcjOMkbrOiM5Tpd7XxRM Gvwr80BXtlrCYmoh47JL3e H9Wbr1ShcL1tJFjrFLKfa6 HiqSXvcDTjXBFal9DkS0mi zsghALaigDMwgN7mUXEjMN t3QFVma6XvRBOjm6GmEzMq orVgMILnZHWpBSAufO98HW Q9fTkybFdsmaKrHY0wVYLx erPaGKIgRCYtiP7eSBkmwl YmWCEvplH6a8A0GDmkEZTa eaMpUaoqZHV2onLrkxB2mP ZjM6arhszoMRqlGMTll3Xt dK1nmVXVzFJmf0XivKYaiB CWiAGyEH3klsFkHM5wMYN4 ODggKENMSUEtODgpIGFzIH E7IMizDnwlAYP5ydLeTXLy i5ClNCsuH9aeM20ujPmvvS o8wSVisQpctUKrxKHaJUFk rxP0p5J9HFPej8EustfeCR BsYWluXGYyXGZzMjJcbGFu ZzEwMzNcaGljaFxmMlxkYm MrHWZoEBjvK5vrNsDrZeGq YtztMNC9jI== [facility] [id number] 16:48:00 Test Item Value Reference Range Interpretation Comments Case Report (test code Surgical Pathology = 104) Report Case: [id number] Authorizing Provider: Tereza Galvez, Collected: 01/11/2021 03:53 PM Ordering Location: [address] Received: 01/12/2021 08:17 AM Pathologist: Fredi Hermosillo MD Specimen: Mitral Valve, Mitral Valve (send for C/S first) DIAGNOSIS (test code = [id number] 3220) FuZzEwMzNcZnRuYmpcdWMx IHtccnRmMVxlcGljOTIwMl rzcaUdBFZotFJbV2Ntfitc VKyxRH6cCF4zbJkbbGWsqE FrXZLpAoTgg5oxk028eOTi h0kyIESHuiywpLt8oCuyL9 5rf3L6VuayQ99fsWYgYVwc bGFpblxmczIwIEhFQVJULC BNSVRSQUwgVkFMVkUsIFZB ZYWRRFZKMB7LDDpcbKHyWV SDQcYJEr5BCREZDQXHVCOG GKwRQTUIRQ9ELZIRGzQLRT 0KHrxzDDXUZX4RRiRYAFRf NnLPTYLGACSFTCYQU2GLTU BhciBMRUFGTEVUUyBXSVRI PTDRP5MCFY1ZTXRMPJHNZI GISWANNhvDGKXJNDBQM1WK EAXQE9MWWkPcaOFjzBkpvx ApQBcny1JuEVmfNPOkDJ8f lLtyCILgHC5cYRIxZ0fmcT 3dejo4IqEwSLPdGxN4GAGa xdQ3Dad7TSCrIEjih6fcz0 FsUSRaFMp4eSurKpPbSRLl j8ssdpGdYgOoCYPcOXNgKQ AptLAmG622i0yuk0ftxhBc kFK9TZLlAEQ1NEfgxhCkoh R4IXaxzFXgJqQ0YNhstpLt WIsfbiOtmyXcExk5DBNhX4 16UAY5aJlhf9ynCJM1CNCe WPLaNnAeVv4wmGVhF391MH FtSVSBKPPbgQh9BGQzdgPp vkOspFVHk310R330m5heZN LawlMjdWuTrmrtq7ndI626 XHBhcGVydzEyMjQwXHBhcG LknRY1MHNpOI9daiesPRtu VAksBSCsgqL1FQUfhOCpL6 IcTPHgJG5ahlhaKDW5RAxp VUTdZFO7FpWeDLAwl0Axbz p8CcOasf6gzq65RBU8b2Ik eUqaRAD7UUY4DdKcQj2keF EpYHLdHR4xPoQjsKEgSVEl ml63tHnqWHbiYYA4TPFvon Vxn0Rht0wqQvSnhaEsH3kt J1DsFZNoYUXbXLAuYkCjcj Laa4Frq0TscKNtjCp9b4sf UWEnNXUbyQwcw8raRSA8DY UqmQRpM1fvrT5jSQDtVG4b amweb1dqFPzgTTjiXBUrbX V6uzD0NFLhrJIpY9EzxY2a ZUTwHGadWFUkurl0OhScXr 9vdGVyeTcyMFxzYmtwYWdl XHBnbmNvbnRccGduZGVjXH BsYWluXHBsYWluXGYwXGZz MjRccWxcbGFuZzEwMzNcaG ljaFxmMVxkYmNoXGYxXGxv M5zkIrCiIxWmGeo1LQZyaL HvVQRmVqk0QXBzlPTqBZDY yPodfZ3vTALdhHvoiJ4jhN Y0AEAofmIyoOXToQ7lOZOW iM5nBeK5NsFjNsE4HZd3SM FccGFyfX0= COMMENT (test code = c6otjVRmLOGcxTE0FeFcQX 4849) Srf2mpr3RasMLtjNLcVHsj dUDhwrAlnr76iIU3sZ26GG 3xIQTeQqU8SBLykeI7Rex9 XULzFTPojUBjA220f4tyn6 zkesEghSW8dNwzXSLvAMDg YWluXGZzMjAgVGhlIGJhY3 UxiubsUTAblpSwvO1iUHTp drS2uCQtgoQaHIOkwYfnaq QozcLyIBTlDB6qcnT1JACp LM5uLPVoqqlfWpt7UXO3AM ajqM5kNKcosQhuoWflo6Qy TFceSA1xHMB7LDtubgChrq ZwI79BSJB8GMaeqjcdPoD8 ITYkSBDhndZxn98topHguI Nsd2YppR3jn8l7EMtjNHBn XXSsr5LdQ50gV0hsTItmZQ J9 CPT Code(s) (test code q7zsyUVsQHDyyAF8GbGkLE = 3357) Xsj5hve0GghYIuiFPuXPiu oIIohkNcqu33mLX4uB24YC 5jSMHcEaG4ERBmmdW9Pkb5 WQYvMAXqvSHfQ448p0sua4 cyzgAxsJO1cGyhYWPySUSt OIjbJHIwDxIdSMomFTI4DR z7WgCxDMypS3jgQCY6 CLINICAL HISTORY (test y7ouiGQjLQUqiDZ8BgFdAG code = 3356) Gbz2nfc3IqaEItoEDzPDye lJNuhoBjxn26yGD1bO60KE 3lEQObQwU1OWVkkyD3Vxy2 MTYaVDBggWReF431t1ncu3 kzlnPivZW4fJssNXPrNOUt LSrhIUJdKqGcKF4bl3Dltc JjoHdfMB0lML1enIFrgRS8 MLt5WCHyxUUmvN== SPECIMEN SOURCE (test i4xveZRtRBNxmQH5KbKrAA code = 3377) Mhh1fto7XmiVWapOLkLQtb tXHsbbZvrx43jBZ8yR94JJ 5aBWAaDmW3IVRjkhR2Mxx6 QNArYRHocLHxY215s6yfa8 abvgUxaWH1aGtaHNHzFKZm KEhgARFrBnVvXOb0lyPbLJ ZhbHZlIFxwYXJ9 GROSS DESCRIPTION (test r7oaaADeTEWwcBBhIzMvWV code = 3366) SjBRXzd8mrIFAjmSSeZuRo MzNcZnRuYmpcdWMxXGRlZm Ixb8tzn470yISac5pkOYXF xjfeqSg1s7noHFVgVkX8iT PiKUmzH2vyxqCnyQAbINIp JYi1iU10EGSphO3ktQMiKK pnmlAzVdK5GAyxIJQvVzJ2 FCGbgGTzEANcP1vbYZYwTE koLSHaKOabtASbBFD0aRaq g9M5yLFltXCoyDlgRwUxVw TpWUIBg5NlPSi4rArjA9Xh QYYyQnN1uFCrFHPoVExqZN PoHVBfzcG0sA43WCjqkmD7 pCRib6Ehs71lg166uK9drA BnULH3RTTcEIPlbPRuLVRe SLH7MRGowIUdD5v3SdIqyQ MyQ4E2OvAjyMXuB3N9VtIt yPRwG0V6PvWsjLFpHUIyxT UxZn5fsLOfnFTefi3xrr86 CWQ6n7IhjMoqPRM5RCA2Vg LjBb3whZUlOTLvHWTziNMd JQOpJG6jbMPnMJOtzX8tiv xjXHBnYnJkcmhlYWRccGdi ghCbHs2jmMyqCJP2IYizW9 acpB8eEvI3JUazP7pfyJ0g ACh8LPvgtCL9BWWniW1zXV 1tguewc1ebRyYfVK2vfdjf v7tlChVfWV9kyqc8h9uxUx DfGY1nfecic2leEyLaTRtq JWComwjpUNXib9PasfcnHE Hye4AcD7MczUbeU26urUim Y07wAIVuvYeoeB4gjTspeE 5cZjBcZnMyNFxwYXJkXHBs YWluXGYxXGZzMjBcbGFuZz EwMzNcaGljaFxmMVxkYmNo LVVbLCrxV1stBfJzOeTyZM BSZWNlaXZlZCBmcmVzaCBs YWJlbGVkIHdpdGggdGhlIH MksUzuqhRmcsKwGW0eJKAe VAEjU9BvCTNpS30oLICktD 1iZXIgbnVtYmVyIGFuZCAi oUy1fbMvHBJcxHUrXqWptf NcCIIpETL6XPRxGGY5UWQt BPTxcQCtL4wnSMcdnCZfu4 YgdGFuLXBpbmsgdmFsdnVs JUZepAdiy9TtKZrplGztQQ V6ZNQvFTEiX8Oel1SkeUU8 scSbjUSud3TwbEUcB8akbp EnXOB5OF0nnX0yFU9mXWww IHNwZWNpbWVuIGlzIHNlcm ujiVx6LCSaK0Nnp01sFNS2 wmMtHRRkAVvyBaGlG3u8IA tyuIxphpM4jnC2WC9kVOFc gv9jCCN6xJTjeSHpSKAbaq P3bDDvNUTouFOnVtcdFMOs g78kUM4rLHC4rpziEyM4uE P8uvKrSoRsN82wXMYkkAJp b7YltOT9uVOsQKVxS4Hvn3 1bRXYfSBXgfBSvjKI2ARVj fB1sY4Nvs3M6jWFvQZLePv 7ruM01kY3wMLYyqLKjLJEu I2TdX2dvrTNuePrupw8iTG eIQ1F8ZNQmad0= MICROSCOPIC DESCRIPTION t4qjtWQaGRAjlGD9VgDjIO (test code = 3371) Svs2dee5CiuLQslLGsSKgq qCLhwwPjlw27yXK1xO75GD 3wZZJlDhZ9MYAamtP9Keu3 YNXyGVSwhBVdJ571f4dbg9 agadTdpNU0wDysXUTnMQCn UBunJPVlGlQkKGAcAx4afW VkXHBhcn0= SPECIAL STUDIES (test a8mxxTAcABOsj6snQPVnqZ code = 3376) FuZzEwMzNcZnRuYmpcdWMx JTgexdDfKDhoi8WuF7MvGx AwMFxhbnNpXGRlZmxhbmcx MWLqPOA9maUwAMWcUAlqJX EwHCraEl4qtVCrfQydHwYo NPHfl7njonTYpslwjFp8z8 egPTIiDkH9hPBwYZuhF9jn mjEwcTNdD4EfwQOrtMd4z5 buZuTxBtG9dFSzUDdhK1qo ixVmxVVmUSQkLYu6iS49MB YebT6ktMFsKXmyfnLcRsJ1 SKuhXSStGjL1PYTofUCcCJ EiL0pmUYMaJXovSSJhNTdm nYPgNOF5qDwfu0W5eUCqoE QwiGxnEdIdKjThJaCKu0Gd YCu3kUcpF8DcVQMwZfI3bZ QgUGFyYWdyYXBoIEZvbnQ7 jMdxrsHaa59jtMFuYCOqXX LwSsWgkRlgFKQrATDYl0Qd uUuiFTA8lTs2mWorXbuuOJ B4Ykk1ON3nwm73pip0iTlb XDIybbdyCoH5KPzvTGLkis gwURe2NJhnQTQqkEI5IRQj yMVdJ1GcBVUwIV2wles9LO I2ZEbwOJMiDhZ6KYCxcWZq CMJanRkcDFrfu516LBP2Bp SsWT9wV2Ydb7Y5uA1msRXv FQCdtCFhRqXlTBMsmk7kyV AqPHolk9YpGNX2swA0fLVj vYCnADXhWA51Jllhg5RlUs euf1KpJ36toYE3BUdjt3oe UJ4xRsS3fxFvEMgwn5rgsC 0gZbN9FIglGS5qID9pSMDk uV7kumdiHOWzUaUucnpzZU IdjCpcdtDuGs7ixQqsGCP0 MOlkU8juaM9kFxE6ZFfuY7 wphV5cJTs3DGhegHK4RWGe eD6qMY5pwbivg4mpHDgnMI adDEIseoR4utN5EAAqsWYu O0TuxM7lULClMT1evfoqi2 iwWKQ5RHrhEGObROX1AhUh MCCmd8Ttzwk7HsSqa5GeuE ZrEXtsP73cy987SOKqnkSg X1uczJBouuzozKQjbavtVQ qmufC9RKMgAMScYOanFPFf XGZzMjJcbGFuZzEwMzNcaG ljaFxmMVxkYmNoXGYxXGxv G4uqGgObO0BgARVmApQlJU czLIzmdIGwaCTnvNR5mC1w PD2uMRPfuKZsJ8JiESAwzn GzfBQnTXF2eVYhcDLpTZ9w QCeqjWTzl8oxc8ZfS9ytbV kzrMY3MF7tGJZuMKSxOGvm b5ZypD6eMgrmvZIpscnnYK xmczIyXGxhbmcxMDMzXGhp T5jxUxZdYFZklPwrMOvfy4 NoXGYxXGNmMlxmczIyXGx0 cmNoXHBhclxwYXJccGxhaW 0xYyNrPsDlClitOA0xSGMo J3iotMXbBJTaUGCoH8oiLt CetK9ioLlxJArqXeXvDvRx GwQWn647dr0nTIFmmFHiyy FSfCBufR7xNVmbBJrwKYdw lQOqUBrgi5wuCARwd9x7gH PzXGGiryWyg8qqBZvcgoFv NZBhyUQtbDRqKSUqw62hGD dzmXhvyBzxFNZbr5ExaDib t3JdYnIiUVrxs0UdH09zeV JvbCBzbGlkZXMgcnVuIGFs h78mr5esWYRjAfN3sJZmqA B5pDOfyQNgl0IxxHvpJOOm r0qfHVAusk8phbnilBYnl4 RedS4cjyhhBSjszEVsmnKh JKUgx7d3zACwTZLfJOZuZM tnsGq6KXJjm290kl4gawK6 cDJtIVB2IVtpXFRuKXTaax UgZXZhbHVhdGVkXHBsYWlu XGYxXGZzMjJcbGFuZzEwMz NcaGljaFxmMVxkYmNoXGYx NLlfQ2pwRuFsB2ToYZDpMk ShhPTqX2hnsJShZUBwOHqm XGYxXGZzMjJcbGFuZzEwMz NcaGljaFxmMVxkYmNoXGYx UWrsS3qoTrOgG9UgPUNcBf IgIFxwbGFpblxmMVxmczIy KCklacemQSWyEDrtX1fjWq HyCKYciQtqQXkzg8TjGORt QIKxOedwncKgKZu1fwRpJV BhclxwbGFpblxmMVxmczIy BJmqhsigMEFtJRyiV3pyCl ZxVNCauUooXImin6UyMNTp XGNmMlxmczIyIEltbXVub2 fkn9RoX1gskOtcuWQ0AGWv E8rhgIFgxVJ9RGN2vG5oSE gryqFhEJOxp0VqIRKcIKQz VdI9oW1fSPM9BtICjGsfSS BsYWluXGYxXGZzMjJcbGFu ZzEwMzNcaGljaFxmMVxkYm FlXVBoBOtzS9caFvCdB5Ib BVAuTeZfwTsxESmoMTj8Qo xwbGFpblxmMVxmczIyXGxh nbnyRWHdGKelU7ayGeKsAH JctBoaXHpvk3YaDFWgYYMf MlxmczIyIHMgTWVkaWNhbC IPPS62QPKqHTAahExzhJ4p pHWNSJKhevX3z9L6NBsqYB GqEHi0GMcdfaUmQQNlnR3h ILHmNF2mPAq5ggVhSZYzq4 CzVQ9lQICbiORmMCH4SYEl j1XxE8Dcp7CnNVUvEOHyam 9ecxSiXmQSiCYiKMOrve70 ZRIgGF8dO7feDHGmXIZhrk ApdMTel3MoNQDndEV8sYFd TH8JGxISu19bZMOnDBXHor KqZBGuhIodoXU8wiO6xZ5s LiBUaGUgRkRBIGhhcyBkZX Tlxe6hacJyWQJoNCPki2Di nKYudYJeddQkV1Nmt5MmKT Rygd38GPseoXDhpb26EE3w T2Uta7TkoW8wKIaeWPSgr0 FihPWuqATrYRQzw8WgM8yi pdmlGDyngLGuqH1zONHmVU l9GREtv0AbMGRge9TxPwGo azXyTXIpYTQrVOCclP01CM Q7pQcrhGnzhzQwJZ2yQMUg ejEaLWNnNJXjuB1zBDpxha DnFONfdlA0t5R3KKanSPSm slDtWezwFIG4kmZnffP3zQ GuY7oriqncQQdjYLOud1Op eD8voTWNoMNtq0XluVRmiG ZWwULrHW4ovnBiVJ5fOAW5 ODggKENMSUEtODgpIGFzIH A2AIubLzqgEDF8gqTrDKCs y7MqBImnO5qzV46boMvtfO p6vRGcgDnvcJHxoHQlYZKr wsV5h7Z9EZJbc0HdttqyWH BsYWluXGYyXGZzMjJcbGFu ZzEwMzNcaGljaFxmMlxkYm YoQUXgOUxbE3uaVfFpUsZc FnmxUQM3dV== [facility] [id number] 16:48:00 Test Item Value Reference Range Interpretation Comments Case Report (test code Surgical Pathology = 104) Report Case: [id number] Authorizing Provider: Tereza Galvez, Collected: 01/11/2021 03:53 PM Ordering Location: [address] Received: 01/12/2021 08:17 AM Pathologist: Fredi Hermosillo MD Specimen: Mitral Valve, Mitral Valve (send for C/S first) DIAGNOSIS (test code = [id number] 3220) FuZzEwMzNcZnRuYmpcdWMx IHtccnRmMVxlcGljOTIwMl xksjHrRFFqaKBwA9Dwnhkm PXonPC4sKW1vpWmwlDTmvE EmMIYrEzYvf9bot301fCMh a4jySIGDeiixrVh8lCooW1 7nx9W0KittB51qtIFzRCvz bGFpblxmczIwIEhFQVJULC BNSVRSQUwgVkFMVkUsIFZB GPNKKKFVUR5JCCjvwXLxSG WLWdLGEv1IRFMULYRVSZYM CZeAMJVRMB7CZIBMDwOJHQ 9TWxmtIDGFCG5OWgKVSPQb SeCYTPSJEFWWPEVYZ7KNIJ BhciBMRUFGTEVUUyBXSVRI XKQQU1FSBW8JUGFYTDOFXS JYDATIFdaFUCHTBOORH6XT TLOWK2OOLoVvnBLzsFrrez IvZOryv1ByBNjoYWSiJH3k cWdnMQMyOM1gJUAeT4xyzY 8bhxk1EjTfPYYeJqX8IMNs mdZ5Yao8YXElLHipy5tln6 HrFCFjTOi3tOyaPkCnVVGu d5byjcYjKnPdVADiFSDjXG OvxORyV574y1hdo0ezcsGs rXK0CMRcFOX9LFcjkyBayd C2SQilxOOlStM3HWsshrHa HUelhuFdbqKvTmt3BZFjN1 33GML4aLvtj5cnGED9JZMi BHVmVuHpKd1ypJGmZ688FK KqVDAKGDEmjKb9QTYywpUk pwFvxRTCj419V547r6kgAI McewHajSjIldzhc7fkX491 XHBhcGVydzEyMjQwXHBhcG QvjXT6IXDuDC1oidtaDFwz ROztJAVddpD2PJAraRJfR2 MvHDBsDY8sfxqaSFX5KNop WRJgYJO7GnMgBHWnz2Gugl r0TpCenq6qry82PKI7k3Iw gOzjHIS4NXT9JuAbWe1emI HwVXJmBE1xJmOffNKzYDKj jm45uPpdGHobINN3RUQohd Gub9Ddb9xdCiDylnWkL3yo N0MkGJJeUSOnIWYrObWwif Kjz4Rzz2TylEXgvWi4o4cr NZDaNBVqqElhm5tcICA9QS QvbKYkU0ritO2oCHLuUO4v nyewm7ydBKddYYqqEOGmiE D9abD9YXFsrPBzV8AkgF9s EHLbSLpsMFUyjtv5TeYsOx 9vdGVyeTcyMFxzYmtwYWdl XHBnbmNvbnRccGduZGVjXH BsYWluXHBsYWluXGYwXGZz MjRccWxcbGFuZzEwMzNcaG ljaFxmMVxkYmNoXGYxXGxv W5dbWjOzQyCpSdo3UADbhH UiBVDsTsr8SKGhoHCfXJWI xYtozB0fSZDepKumaI7ydB O8KKTarrMuhFXZtR6jELRN iJ8hCpT6HfNaCqC9RHd1FO FccGFyfX0= COMMENT (test code = b5vuzZKaDPPveRX2TjNnVU 3359) Djq1nsa0VbuMMvkDLeJLrz xJArobTxca17rAS3gK53HZ 8vMBHiJpN7AVIrqdK3Fjd1 FHOfYRHwcIXbW826s7oxn3 pzrlEzoAT5dIuiEWYxCLSj YWluXGZzMjAgVGhlIGJhY3 OuzpghRKUajeFxeD0oCEZx fnP2tUCsojRjTLKgeChsia IetoAwDVJuJN7uzzF6OFLd QZ0dVUZckifkJoh3RAR6RC bdhR8kHLeyjIbzmDafr1Op CDzpBA4pKZP9CMsyatAebk HjC79SAYG9MCtsgnpfThQ7 IUYlGKWgphHlv06qdcZoiA Jgz3YmbZ1jd1c8JXdgQMKy QYCwc8EyH28eW5liTBvtDW J9 CPT Code(s) (test code p7yxkARzMOFlvSG2TdUpYA = 3357) Dge9tet2LnnCEveZFwKAgq nRUouoEnqw85uUU4vY58ZZ 3xPTPnMaE9YECgvcY2Njv7 FMDwNGEctPLcH139u0kmb7 cuyiZxfQI3uRmiXAVzATHv WFxlWYJvZyTsONerMIT2DJ s7HxCjXWgbI0vvKSO1 CLINICAL HISTORY (test p9yfyQHoHKAxmLS2ZeMpJT code = 3356) Msv8wpn7SwoZMzrZKgPRmm uVHvnyZyzy23dMA3pN68AT 8jKCQoDyC3RBLdleI1Oze0 DPJbQMYnsRVsV907p3crk1 rsvmVkcXG7eVkzESTuDYKm XGgaYDAcFuLvCJ3jb4Glsy QiuZrgZN9yTG5jaJKlnDD3 OJl7JOBiwEZugK== SPECIMEN SOURCE (test y1qqeHPbOLHxjBS4TiXlVY code = 3377) Gnq0nwr7TywHZeoQNpYQea gGCwdnStxd99rNX2oW84ZO 3yTVNeRfI3SIOtlkM9Pba9 TWAjMOWdjVCsS779x3obk0 povmWhnWW9aCmeGVRqDOHo GNusIJHeZvXzIVm1rzDbYI ZhbHZlIFxwYXJ9 GROSS DESCRIPTION (test d2fmrLJcEXArgXYyLmCsUG code = 3366) PvCTSwf3drGJDjvISuSoRf MzNcZnRuYmpcdWMxXGRlZm Lom9uif822bUIjs6xfWJSL qlpjqYm2x7esQOZzOjA9pC JeZMdkL8boybPykABcKZBb SPc5aB35GULljG5cbFWiCX tgzrBvBtL0ZDxhSHYjEnU5 RKXjiGFvPGFuG5kfRFFzNF yuYZOqTAlksNYmQHO5uHuf z8T8qAGvzSPoeVkfMtQsBi WfJRZTa2MyHFn5sUvbR6Wm QQNxJjL8uELvYXDbVKloQW UzSCReceW7jF67OTzflnK4 eNGym5Itj62rz351jE7wbL MxEJV5XYIbHHIdgMDtWGJy BJZ8SBRpzNHbH8z1WdIgrC AyX7T5CwPxvAVqC3T3JcOy kOBqR6W6OpUqrXOhVARoyJ HzZx6szIUhiTAjfk9ywc39 XTK5e9VrtDffQEC2NQB5Vr EhFh4zsMZyROLpSNEsaOOd VFXvOD8keKFlKYQfmP5kqy xjXHBnYnJkcmhlYWRccGdi vgFxFz9xvAitSNU3AZpnC0 sjrG8tYoW9ZDsfQ9qzeR0b LZb9DDuevRT0AZZawP5vQM 3iylmgv0mpNrBtKU4vbsoi z1nrNzRjJD1srlj4d2ljQh JoMF2icqavy2tuCoCjXLuu MOCntzphGCOwl2XfgnwbIE Ukv6NjM0RdxQshG00wjEzs F38xJVWrdIztdL5guAvxkD 5cZjBcZnMyNFxwYXJkXHBs YWluXGYxXGZzMjBcbGFuZz EwMzNcaGljaFxmMVxkYmNo PJPnUFpuP1oaOhKcKzZiAU BSZWNlaXZlZCBmcmVzaCBs YWJlbGVkIHdpdGggdGhlIH IwhUbqqkVmhtDrBT6qIFHx FYTrC0CcGDEqM46pOSLhzE 1iZXIgbnVtYmVyIGFuZCAi cPe1wpDvTOThrGDnWwYnst IiOFGlMUJ3MPJtXKF1JNBu AOZqgEPwN0cyNPycqJPyb2 YgdGFuLXBpbmsgdmFsdnVs JNJgpEsnl7BvXDpwvSgsWY Q0VFIhKHEhH4Rrb0MajMI2 bgAwvISat1NbvXJuM7qqhz UhYHX7ZX6vcR4iCG3oEDqu IHNwZWNpbWVuIGlzIHNlcm aciPu0YEXtN6Apm92dHUL1 mhHdRRYsZRkqLhHxS0j4TI rnvDljyiF3mtE9JW5rBPKd su8zDJK2jKHhvASsQXErro Z6xHKeMSJwaWFtNcemSXZg x68aJD4vFDM7zzkwZmN0yM E9ehMwWtCnT91mNGQtnQMu o3AmcPL9dBEfQXLdZ6Csf3 5lHBKyRLRanOTfhOR0YDPb cZ3jJ6Mfq3H1hCBtXRBrSd 4uvR95lT1qUIMozOYoYODy L0ZmW1xccAPgaSqloo7mIL wPN5C1IKQjge6= MICROSCOPIC DESCRIPTION h3mugDHzXFRjoDC2OnFnBK (test code = 3371) Ibv4yio1UtiFPglCSyOPnt pFPctlZszd26xFL2jS57VU 4zVKMcYeN6MUTionE0Pwz4 ANZaSGEveOHkW724d9cyr7 zqzyKaeLR7xWneVOOfKHIw KQddUHEgSvZwAIXuGy6qeG VkXHBhcn0= SPECIAL STUDIES (test r9rkeDOwACMkc7fpXRWxyL code = 3376) FuZzEwMzNcZnRuYmpcdWMx EXtxjnEvLRfno9KuE2ApMh AwMFxhbnNpXGRlZmxhbmcx NWLqYOD0jyCkSMKzPJtjKW EkGGsbTh3hvNWemGnnOqFn CACua1whrtUVxvppqPh2c6 euZIRsWgP0jPGnNWixW1fm qeLkeYSwL4AayFBttOa2d7 mtFbFiYyJ9qGMnEAwrJ7gb vpIlmQXvSWUzULm5fC78ZB PynN2rrRVeMEodigZyHrS6 VOatUKXnNaK2MIJhqJPtKZ XbO4xzMNSrRXwwLHEqSHdj iZBeGYW4hJiso6E2hREphA HgkHzpFrKrHjIrSdBAc4Po QOt5sVdwJ3DgHRDxYwN5pY QgUGFyYWdyYXBoIEZvbnQ7 nOyozuKwu44muMVkKFGyNF RdNbJtkGcbOBBjNYWYt8Jh rQxpIMU3dFs3sJnhCgepJQ J8Ouf5LW3bgj33jwb1tVcm BMLusfyjNrB3DMrtWVYndw uqXJs2BXucFWTchHT4IPIc cCEaS5NqBZAlKS5uwih8QR X1NZccNBBbWpY9EHGaxWBf WZAtpOhtRSwzp392RRH6Id FwHY3jE5Fwe8D5qP7gfDAu GCUjhHTiEaCxAXPony8faY YzQTtar7DvDLA9mqM1vRYz kXGsPLDyIN59Uahes6MwPs txm8KiZ67jeUO5LHcpq1mh JF6oXiQ3hyXvQSzyv3mikX 2iDbM3AIvwIX3hNN9lNUMc cN8alktlNYQeXkUkktkoTN NzmVlyenBrAa9qjYprSGE4 OSmaX7abiU8bOaL3AOftT1 oekS3zRYr3YAaquYI4BDLw oZ0iXR1qukckh9ddTKqrHN ymMBRmzcO7chN2DLAuqAMy Y3KiwS5tAVGyFW5hiqakh6 qsPZP3OJroHJCsHPP1OtBq RFEhn7Fduiz9HjZtt4GggT EhJOptS82be266BLCigaHx H3ptsSJglyeveAFlqwxlAE ukbeI2DCFySWYoGNhmUEDi XGZzMjJcbGFuZzEwMzNcaG ljaFxmMVxkYmNoXGYxXGxv G3nfPyVmG3TsUJMsKxPvDF nrSUtefGRjuJOmiJV2fL3l UM3rPQEskGXvE5YdHGUcgz PdsUPzHJA5bBIaxYHjYN6d HZcpuSBen7fgj6DvQ9wfxQ rqlAP3VK6bMAAnPMIvDVdl m2WhwF0yEwuimLUbbvkbIU xmczIyXGxhbmcxMDMzXGhp X3krMaCiAMAtpXweAEhwn0 NoXGYxXGNmMlxmczIyXGx0 cmNoXHBhclxwYXJccGxhaW 0oLnXqToDlGcctJZ0pLZKu Q9iepRYaSPUpSQKtV0kbDb DjdN7yvSefPWzqOaHlMgBh StBKh011ux4lTFCqgYJftf QBsPXucO6bCHfcZZsgCYqd ePFeHNits0uqAIDfy1x0uS YiIIRfvrUnx1laJPhhukSf WYUjeUKuwZJlXGWsr46qBE axyTymkFodHVJou4ZynJmz m3DvHiHgIIluz8UzP73wlJ JvbCBzbGlkZXMgcnVuIGFs g27et8rzFIDhTmN3rFVpnR I4vIImlMMvq8CprKvbCJFn f3vkCJAfba2ehsxboDWfu8 JxfN2pwjtnSUxbeEIoamRv FIXli3g5qVRfXNJiZXNnQP gryKk2DIRco398wl9dxyL0 oQBtHRI7GHzhIPTzSMMuwb UgZXZhbHVhdGVkXHBsYWlu XGYxXGZzMjJcbGFuZzEwMz NcaGljaFxmMVxkYmNoXGYx BGphC1ojThSnF8XtISXlPb SckJOsA9xdvRHjQCOySBkp XGYxXGZzMjJcbGFuZzEwMz NcaGljaFxmMVxkYmNoXGYx TDhkG9vsSxJmM3MeUNGbXh IgIFxwbGFpblxmMVxmczIy AJgorrqfCUDtDTcwP8vfXr ZiZPRarOpeFPrpu0UwAKTm POUxNsjbjvDgYJd5mvVtWZ BhclxwbGFpblxmMVxmczIy XWfxcketNZSzVNosC9poRd NcCKOwlWhjHBstj7RsCVLy XGNmMlxmczIyIEltbXVub2 okq2KxE4znkKqxtSY6SHSy Z0xdaEZjpCG3FBQ3rD7oHQ vjgbUwDHOae7EyIOGfYMWh DpM9lG7wMRG9UaVCgJcnKD BsYWluXGYxXGZzMjJcbGFu ZzEwMzNcaGljaFxmMVxkYm AbHENqWErdJ1dtDlTtY6Mi CPCsEpZfbChlASjgGWt0Fg xwbGFpblxmMVxmczIyXGxh slqnOAVeNEjzH2tyGzJrRZ HupJdmMDcms0QzOHEoUDTv MlxmczIyIHMgTWVkaWNhbC LYHM78HJSkBBGicVkbbZ8e fYLZXYRxsqX0v7S7KPgwIA AqTSf3BZhhukSaYFQszT4t WQNlBS7aQEd7dpBzLEAhi2 SjER8wXLNtyGBcWZB4JXCp u0TvX0Qaj2TqIIWqKTWcfk 8zqgMzApWXtHOwKEUncb02 PVRhJR1qZ4pfIIQsFVSkhx TbiFTiu1JiNRPijJJ5vRNl XP3RRpSRz56kRPZtCGPDjk WoTLTflZxpgVN7nrV8xT4k LiBUaGUgRkRBIGhhcyBkZX Bhrz3edeXkOJIiDVLoz9Ys tTRvyATpujPdD3Fey1FaIS Tivr32RWvtgEOunc93VA7b Z2Vsk3NdoT6yQAwnDYBlv9 TwdHMguOZpVJGfh0EnF6by ohzpYKypgTAnzQ8jEBAjPJ q1NKEia6ItWAAmw2TbIwZx eqCjQAMeYGHbGGGkaK45SX U5zOblkUrozeCsCN9wXTDw sbTpTZRzPVJttH4eBJzzen ShIEZepgK6u7H1YLmoVTVq tuFeCqjeVNO3dcYetrH8uM EwG8avwyrdGWjiYEBgm9Pn jI1qgETDyPSgr6PczKMvzF YOzNHkSW3vfcJpQW3oLAM3 ODggKENMSUEtODgpIGFzIH C1GPvvQfwqYHF8ioNzNUUg j0FoPYasW4btJ44xjIcmtY v9mGUcaGbdzPNfhBLhWHVu ppR2n0K9ZPDta9TxospmCQ BsYWluXGYyXGZzMjJcbGFu ZzEwMzNcaGljaFxmMlxkYm XiIKAoXWetM4ibEiXaOkZx OnwtVYK1pN== [id number] 16:48:00Surgical Pathology Report Case: [id number] Authorizing Provider: Tereza Galvez, Collected:01/11/2021 03:53 PM Ordering Location: [address] Received: 01/12/2021 08:17 AM Pathologist: Fredi Hermosillo MD Specimen: Mitral Valve, Mitral Valve (send for C/S first) HEART, MITRAL VALVE, VALVULECTOMY:FIBRINOPURULENT VEGETATION CONTAINING DEGENERATED BACTERIAL COCCILEAFLETS WITH FOCAL MODERATE CALCIFIC ATHEROSCLEROSIS Signing Pathologist Direct Phone Line: [phone] signed by Fredi Hermosillo MD on 01/17/2021 at 4:48 PMThe bacteria contained in the vegetation are degenerated and variably staining with tissue grams stains and GMS stains, but the predominant morphology is that of cocci. 14703; 91262 x 3Endocarditis of mitral valve Mitral valve Received fresh labeled with the patient's name, medical record number number and "mitral valve" is a 4.4 x 1.9 x 0.8 cm aggregate of everett-pink valvular tissue with attached grossly unremarkable chordae tendinea. The specimen is se rially sectioned to reveal bright-yellow to everett, firm, cut surfaces with calcifications measuring upto 0.4 cm. [employer]amic [employer] Sales Engineer sections are submitted in cassette A1 following brief decalcification. MJP/ewPerformedThe interpretation of this case included the use of immunohistochemistry or special stains.Control Slides Examined: In-house known positive controls were evaluated along with the test tissue. These control slides run alongside of the patients sample show appropriate staining. Internal positive and negative controls when available are evaluated Immunohistochemistry technical testing was performed at [facility], Pathology Laboratory where it was developed [...] (test 273 mg/dl 225-434 code = 658) [id number] 15:29:00 Test Item Value Reference Range Interpretation Comments PARTIAL THROMBOPLASTIN TIME 41.3 seconds 22.5-36.0 H (BEAKER) (test code = 760) PROTHROMBIN [id number] 15:28:00 Test Item Value Reference Range Interpretation Comments PROTIME (BEAKER) 25.4 seconds 11.9-14.2 H (test code = 759) INR (BEAKER) (test 2.34 See_Comment [Automat ed message] code = 370) The system [employer] generated this result transmitted ref erence range: <=5.90. The reference range was not used to int erpret this result as normal/abnormal . RECOMMENDED COUMADIN/WARFARIN INR THERAPY RANGESSTANDARD DOSE: 2.0 - 3.0 Includes: PROPHYLAXIS for venous thrombosis, systemic embolization; TREATMENT for venous thrombosis and/or pulmonary embolus.HIGH RISK: Target INR is 2.5-3.5 for patients with mechanical heart valves.PLATELET [id number] 15:21:00 Test Item Value Reference Range Interpretation Comments PLATELET COUNT (BEAKER) (test 224 K/CU MM 150-450 code = 756) Forming Machine Upkeep Mechanic ID - [id number] AND [id number] 14:15:00 Test Item Value Reference Range Interpretation Comments HEMOGLOBIN (BEAKER) (test code = 7.2 GM/DL 13.7-17.5 L 410) HEMATOCRIT (BEAKER) (test code = 22.4 % 40.1-51.0 L 411) Forming Machine Upkeep Mechanic ID - [id number] 13:21:00 Test Item Value Reference Range Interpretation Comments POTASSIUM (BEAKER) 4.0 meq/L 3.5-5.1 Specimen slightly (test code = 379) hemolyzed POCT-GLUCOSE [id number] 12:43:00 Test Item Value Reference Range Interpretation Comments POC-GLUCOSE METER 84 mg/dL 70-110 : TESTED A T [facility] 6720 (BEAKER) (test code = NORM [place], 1538) [id number]: Forming Machine Upkeep Mechanic/Techni won ID = [id number] for RONAL BROCK RAD, ABDOMEN/KUB, 1 VIEW [id number] 12:27:00Reason for exam:->DHT placementShould this be performed at the bedside?->Yes [facility] 1975 Sex: MFINAL [...] Robert MDReport Verified Date/Time:01/17/2021 12:27:08 Reading Location: [facility] Radiology Reading Room [id number] 11:30:00 Test Item Value Reference Range Interpretation Comments MAGNESIUM (BEAKER) 2.0 mg/dL 1.6-2.6 Specimen slightly (test code = 627) hemolyzed [id number] 11:25:00 Test Item Value Reference Range Interpretation Comments POTASSIUM (BEAKER) 4.1 meq/L 3.5-5.1 Specimen slightly (test code = 379) hemolyzed [id number] 11:25:00 Test Item Value Reference Range Interpretation Comments PHOSPHORUS (BEAKER) 6.1 mg/dL 2.3-4.7 H Specimen slightly (test code = 604) hemolyzed LACTIC ACID, [id number] 09:47:00 Test Item Value Reference Range Interpretation Comments LACTATE BLOOD ARTERIAL (2) 1.6 mmol/L 0.5-2.2 (BEAKER) (test code = 2874) RAD, CHEST, 1 VIEW, NON [id number] 09:17:00Reason for exam:->chest tubes, s/p cardiac surgeryShould this be performed at the bedside?->Yes [facility] 1975 Sex: MFINAL REPORT RAD, CHEST, 1 VIEW, NON DEPT INDICATION: chest tubes, s/p cardiac surgery COMPARISON: Prior day's exam FINDINGS: Portable frontal view of the chest. IMPRESSION: Support Lines: Stable. Lungs and pleura: Unchanged airspace and pleural opacities. No pneumothorax.Heart and mediastinum: Stable contours. Stable surgical changes.Additional findings: None. Signed: JR Bebeto, Taye Vegasting Verified Date/Time: 01/17/2021 09:17:24 Reading Location: [facility] Radiology Reading Room HEPATIC FUNCTION [id number] 09:03:00 Test Item Value Reference Range Interpretation [...] (test code = 347) hemolyzed COMPREHENSIVE METABOLIC [id number] 08:52:00 Test Item Value Reference Range Interpretation [...] S NOT APPLICABLE FOR DIALYSIS PATIEN TS. [id number] 08:45:00 Test Item Value Reference Range Interpretation Comments MAGNESIUM (BEAKER) 2.1 mg/dL 1.6-2.6 Specimen slightly (test code = 627) hemolyzed HEMOGLOBIN AND [id number] 08:12:00 Test Item Value Reference Range Interpretation Comments HEMOGLOBIN (BEAKER) (test code = 7.6 GM/DL 13.7-17.5 L 410) HEMATOCRIT (BEAKER) (test code = 23.3 % 40.1-51.0 L 411) Forming Machine Upkeep Mechanic ID - [id number], [id number] 08:04:00 Test Item Value Reference Range Interpretation Comments PH ARTERIAL (BEAKER) (test code = 383) 7.49 7.35-7.45 H CBC W/PLT COUNT & AUTO [id number] 06:06:00 Test Item Value Reference Range Interpretation [...] CONCENTRATION Adequate (CELLAVISION)(BEAKER) (test code = 3438) Forming Machine Upkeep Mechanic ID - Imelda comments: Slide comments:[id number] 05:18:00 Test Item Value Reference Range Interpretation Comments PARTIAL THROMBOPLASTIN TIME 44.6 seconds 22.5-36.0 H (BEAKER) (test code = 760) PROTHROMBIN [id number] 05:17:00 Test Item Value Reference Range Interpretation Comments PROTIME (BEAKER) 30.0 seconds 11.9-14.2 H (test code = 759) INR (BEAKER) (test 2.89 See_Comment [Automat ed message] code = 370) The system [employer] generated this result transmitted ref erence range: <=5.90. The reference range was not used to int erpret this result as normal/abnormal . RECOMMENDED COUMADIN/WARFARIN INR THERAPY RANGESSTANDARD DOSE: 2.0 - 3.0 Includes: PROPHYLAXIS for venous thrombosis, systemic embolization; TREATMENT for venous thrombosis and/or pulmonary embolus.HIGH RISK: Target INR is 2.5-3.5 for patients with mechanical heart valves.BLOOD GAS, [id number] 04:54:00 Test Item Value Reference Range Interpretation [...] (BEAKER) (test code = 1819) 80.0 POCT-GLUCOSE [id number] 03:44:00 Test Item Value Reference Range Interpretation Comments POC-GLUCOSE METER 81 mg/dL 70-110 : TESTED A T [facility] 6720 (BEAKER) (test code = NORM [place], 1538) [id number]: Forming Machine Upkeep Mechanic/Techni won ID = [id number] for MESERET ETT, SEPTEMBER [id number] 02:05:00 Test Item Value Reference Range Interpretation Comments PHOSPHORUS (BEAKER) 10.0 mg/dL 2.3-4.7 HH Specimen slightly (test code = 604) hemolyzed [id number] 01:53:00 Test Item Value Reference Range Interpretation Comments MAGNESIUM (BEAKER) 2.4 mg/dL 1.6-2.6 Specimen slightly (test code = 627) hemolyzed [id number] 01:53:00 Test Item Value Reference Range Interpretation Comments POTASSIUM (BEAKER) 4.3 meq/L 3.5-5.1 Specimen slightly (test code = 379) hemolyzed [id number] 01:40:00 Test Item Value Reference Range Interpretation Comments POTASSIUM (BEAKER) 4.3 meq/L 3.5-5.1 Specimen slightly (test code = 379) hemolyzed LACTIC ACID, [id number] 01:14:00 Test Item Value Reference Range Interpretation Comments LACTATE BLOOD 6.4 mmol/L 0.5-2.2 HH Specimen sligh tly ARTERIAL (2) (BEAKER) hemoly zed (test code = 2874) Forming Machine Upkeep Mechanic ID - DBLACTIC ACID, [id number] 00:55:00 Test Item Value Reference Range Interpretation Comments LACTATE BLOOD 2.6 mmol/L 0.5-2.2 H Specimen sligh tly ARTERIAL (2) (BEAKER) hemoly zed (test code = 2874) [id number] 23:45:00 Test Item Value Reference Range Interpretation Comments FIBRINOGEN LEVEL (BEAKER) (test 261 mg/dl 225-434 code = 658) [id number] 23:45:00 Test Item Value Reference Range Interpretation Comments PARTIAL THROMBOPLASTIN TIME 49.5 seconds 22.5-36.0 H (BEAKER) (test code = 760) PROTHROMBIN [id number] 23:44:00 Test Item Value Reference Range Interpretation Comments PROTIME (BEAKER) 31.2 seconds 11.9-14.2 H (test code = 759) INR (BEAKER) (test 3.04 See_Comment [Automat ed message] code = 370) The system [employer] generated this result transmitted ref erence range: <=5.90. The reference range was not used to int erpret this result as normal/abnormal . RECOMMENDED COUMADIN/WARFARIN INR THERAPY RANGESSTANDARD DOSE: 2.0 - 3.0 Includes: PROPHYLAXIS for venous thrombosis, systemic embolization; TREATMENT for venous thrombosis and/or pulmonary embolus.HIGH RISK: Target INR is 2.5-3.5 for patients with mechanical heart valves.POCT-GLUCOSE [id number] 22:21:00 Test Item Value Reference Range Interpretation Comments POC-GLUCOSE METER 96 mg/dL 70-110 : TESTED A T [facility] 6720 (BEAKER) (test code = NORM Tenorio [facility], 1538) [id number]: Forming Machine Upkeep Mechanic/Techni won ID = [id number] for MESERET ETT, SEPTEMBER [id number] 21:19:00 Test Item Value Reference Range Interpretation [...] for patients with mechanical heart valves.HEMOGLOBIN AND [id number] 20:53:00 Test Item Value Reference Range Interpretation Comments HEMOGLOBIN (BEAKER) (test code = 7.1 GM/DL 13.7-17.5 L 410) HEMATOCRIT (BEAKER) (test code = 22.1 % 40.1-51.0 L 411) Forming Machine Upkeep Mechanic ID - [id number], [id number] 20:47:00 Test Item Value Reference Range Interpretation Comments PH ARTERIAL (BEAKER) (test code = 383) 7.45 7.35-7.45 BLOOD GAS, [id number] 17:08:00 Test Item Value Reference Range Interpretation [...] Study 01/16/2021 SR. Gender Male Visit Number [id number] Race Unknown Number [id number] Number Date of 1975 Referring Physician Zakia Sarah Age 45 year(s) Medical Unit Secretary Estela Mann [facility] Hostel Parent Olvin Butler Interpreting Stan Murrell Physician Procedure Type of Study TTE procedure:2DECHO W DOPPLER(CW/PW/COLOR) (STAT) Indications:Sustained or non sustained Afib, SVT or VT.Clinical HistoryESRD, HTN, MVR 01/11/21, S/P CARDIAC ARRESTHGB 7.9HCT 26.1 %Height: 74 inches Weight: 83.01 kg (183 lbs) BSA: 2.09 m^2 BMI: 23.5 kg/m^2HR: 72 bpm BP: 106/68 mmHg SummaryThe left ventricle is chamber size (by vol [...] (by vol index) is normal (male - L CYRIL vol - 34-74ml/m2). Severe concentric LV hypertrophy. All of the LV segments contract normally . Global LV systolic function hyperdynamic . Estimated LVEF by qualitative assessment is increased (>60%) . Degree of diastolic dysfunction (LAP assessment) is inconclusive due to prosthetic MV . Left Atrium LA size is severely enlarged (>48 ml/m2) . Right Ventricle Normal right ventricle structureand function. Right Atrium Right atrium dilated. Aortic Valve Normal AoV structure. 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 TricuspidValve Mild tricuspid regurgitation. Estimated peak systolic PA pressure is 45-50 mmHg (mild pulmonar y hypertension) . Pulmonic Valve Normal PV structure [...] LVESV Suresh's:29.6 ml LVEF Suresh's: 70.6 % LVEDVI:48 ml/m^2 LVESVI: 14 ml/m^2 LVOT Diameter: 1.95 [...] 1.36 m/s Peak Gradient: 20.54 mmHg Mean Gradient:8.88 mmHg AV Area (continuity): 2.25 cm^2 AV VTI: 36.13 cm AV DVI: 0.75 LVOT Peak Velocity: 1.43 m/sPeak Gradient: 8.17 mmHg Mean Velocity: 1.16 m/s Mean Gradient: 5.77 mmHg LVOT Diameter: 1.95 cm LVOT VTI: 27.22 cm LVOT Area: 2.99 cm^2 LVOT SV:81.25 ml LVOT CO: 5.85 l/min LVOT CI: 2.8 l/min/m^2 Tricuspid Valve TR Velocity: 2.61 m/s TR Gradient: 27.15 mmHgCH[facility]/Do[facility](CW/PW/Color)2021-01-16 16:58:48Ejection FractionSLEH ECHO HEARTLAB MKCKESSON CPACSInterface, External Ris In - 01/16/2021 4:59 PM CD TTransthoracic Echocardiography Report (TTE) Demographics Patient Name CROW KAUR Date of Study 01/16/2021 SR. Gender Male Visit Number [id number] Race Unknown Room Number C823 Number Date of 1975 Referring Physician Zakia Sarah Age 45 year(s) Medical Unit Secretary Estela Mann [facility] Hostel Parent Olvin Butler Interpreting Physician YUNIER Carter Procedure [...] Aortic Valve Normal AoV structure. Mitral Valve Amechanical MV prosthesis is visualized with normal function [...] LA Volume: 121.99 ml LA Area: 33.63 cm^2LA Vol. Index: 58 ml/m^2 Left Ventricle LVIDd: 4.65 cm LVEDV:99.85 ml LV Septum Diastolic: 1.9 cm LVPW Diastolic: 1.95 cm LVEDV Suresh's:100.61 ml LVESV [...] CO: 5.85 l/min LVOT CI: 2.8 l/min/m^2 Tri cuspid Valve TR Velocity: 2.61 m/s TR Gradient: 27.15 mmHgSt[facility]/Doppler(CW/PW/Color)2021-01-16 16:58:48Ejection FractionSLEH ECHO HEARTLAB MKCKESSON CPACSInterface, External Ris In - 01/16/2021 4:59 PM CD TTransthoracic Echocardiography Report (TTE) Demographics Patient Name CROW KAUR Date of Study 01/16/2021 SR. Gender Male Visit Number [id number] Race Unknown Number [id number] Number Date of 1975 Referring Physician Zakia Sarah Age 45 year(s) Medical Unit Secretary Estela Mann [facility] Hostel Parent Olvin Butler Interpreting Stan Murrell Physician Procedure Type of Study TTE procedure:2DECHO W DOPPLER(CW/PW/COLOR) (STAT) Indications:Sustained or non sustained Afib, SVT or VT.Clinical HistoryESRD, HTN, MVR 01/11/21, S/P CARDIAC ARRESTHGB 7.9HCT 26.1 %Height: 74 inches Weight: 83.01 kg (183 lbs) BSA: 2.09 m^2 BMI: 23.5 kg/m^2HR: 72 bpm BP: 106/68 mmHg SummaryThe left ventricle is chamber size (by vol [...] (by vol index) is normal (male - L CYRIL vol - 34-74ml/m2). Severe concentric LV hypertrophy. All of the LV segments contract normally . Global LV systolic function hyperdynamic . Estimated LVEF by qualitative assessment is increased (>60%) . Degree of diastolic dysfunction (LAP assessment) is inconclusive due to prosthetic MV . Left Atrium LA size is severely enlarged (>48 ml/m2) . Right Ventricle Normal right ventricle structureand function. Right Atrium Right atrium dilated. Aortic [...] LA Volume: 121.99 ml LA Area: 33.63 cm^2LA Vol. Index: 58 ml/m^2 Left Ventricle LVIDd: 4.65 cm LVEDV:99.85 ml LV Septum Diastolic: 1.9 cm LVPW Diastolic: 1.95 cm LVEDV Suresh's:100.61 ml LVESV [...] CO: 5.85 l/min LVOT CI: 2.8 l/min/m^2 Tr icuspid Valve TR Velocity: 2.61 m/s TR Gradient: 27.15 mmHgCHI [facility] HospitalRAD, CHEST, 1 VIEW, NON [id number] 16:44:00Reason for exam:->s/p left pleural CTShould this be performed at the bedside?->Yes [facility] 1975 Sex: MFINAL [...] MDReport Verified Date/Time: 01/16/2021 16:44:51 Reading Location: [address] Transitional Reading Room RAD, CHEST, 1 VIEW, NON DEPT 2021-01-16 16:24:00Reason for exam:->confirm ET placement, and post ROSC evaluationShould this be performed at the bedside?->Yes [facility] 1975 Sex: MFINAL [...] Castro Verified Date/Time: 01/16/2021 16:24:00 Reading Location: [address] Transitional Reading Room BLOOD GAS, ARTERIAL [...] CONCENTRATION Adequate (CELLAVISION)(BEAKER) (test code = 3438) Forming Machine Upkeep Mechanic ID - Maryan Phillips comments: Slide comments:[id number] 15:43:00 Test Item Value Reference Range Interpretation [...] is 2.5-3.5 for patients with mechanical heart valves.[id number] 15:39:00 Test Item Value Reference Range Interpretation Comments PHOSPHORUS (BEAKER) (test code = 12.0 mg/dL 2.3-4.7 HH 604) Forming Machine Upkeep Mechanic ID - [id number] 15:38:00 Test Item Value Reference Range Interpretation Comments MAGNESIUM (BEAKER) (test code = 3.0 mg/dL 1.6-2.6 H 627) Forming Machine Upkeep Mechanic ID - DBCOMPREHENSIVE METABOLIC [id number] 15:38:00 Test Item Value Reference Range Interpretation [...] S NOT APPLICABLE FOR DIALYSIS PATIEN TS. Forming Machine Upkeep Mechanic ID - DBLACTIC ACID, [id number] 15:33:00 Test Item Value Reference Range Interpretation Comments LACTATE BLOOD ARTERIAL (2) 10.2 mmol/L 0.5-2.2 HH (BEAKER) (test code = 2874) Forming Machine Upkeep Mechanic ID - DBCBC W/PLT COUNT & AUTO [id number] 15:20:00 Test Item Value Reference Range Interpretation [...] (BEAKER) (test code = 413) BLOOD GAS, [id number] 15:19:00 Test Item Value Reference Range Interpretation [...] (BEAKER) 37.0 (test code = 1818) CALCIUM, [id number] 15:19:00 Test Item Value Reference Range Interpretation Comments CALCIUM IONIZED (BEAKER) (test 1.35 mmol/L 1.12-1.27 H code = 698) PH, BLOOD (BEAKER) (test code = 7.26 1810) POC-Blood gases, [id number] 14:45:00 Test Item Value Reference Range Interpretation [...] tomated message] code = 1838) The system ic h generated this result transmit ari reference range : 80.0 - 90.0 mm Hg. The reference r kevin was not used to interpret this result as normal/abnormal . SO2, Arterial-POC (test 96.0 % 96-97 code = 1839) HCO3, Arterilal-POC 18.6 meq/L 21-29 L (test code = 1840) BE, Arterial-POC (test -9.0 meq/L -2-3 L : HALIMA ARI AT [facility] code = 1841) [address] [place] [address], [address]: Forming Machine Upkeep Mechanic/Techni won ID = [id number] for IBAY, MIGUEL Lab Interpretation Abnormal (test code = 64334-1) [facility]-[id number] 14:45:00 Test Item Value Reference Range Interpretation Comments POC-Potassium (test code 5.7 meq/L 3.6-5.5 H : T ESTED AT [facility] = 1540) [address] [place] [address], 7[address]: Forming Machine Upkeep Mechanic/Techni won ID = [id number] for IBAY, MIGUEL Lab Interpretation (test Abnormal code = 39654-6) [facility]-[id number] 14:45:00 Test Item Value Reference Range Interpretation Comments POC-Sodium (test code = 134 meq/L 135-148 L : TE STED AT [facility] 1542) [address] [place] [address], 770 [address]: Forming Machine Upkeep Mechanic/Techni won ID = [id number] for IBAY, MIGUEL Lab Interpretation (test Abnormal code = 33524-9) [facility]-[id number] 14:45:00 Test Item Value Reference Range Interpretation Comments POC-Glucose (test code = 264 mg/dL 70-110 H : T ESTED AT [facility] 1855) [address] [place] [address], 770 30: Forming Machine Upkeep Mechanic/Techni won ID = [id number] for IBAY, MIGUEL Lab Interpretation (test Abnormal code = 04833-7) [facility]-[id number] 14:45:00 Test Item Value Reference Range Interpretation Comments POC-Hemoglobin (test code 6.5 g/dL 13-16.8 L : TESTED AT [facility] = 1856) [address] [place] [address], 7[address]: Forming Machine Upkeep Mechanic/Techni won ID = [id number] for IBAY, MIGUEL Lab Interpretation (test Abnormal code = 43542-9) [facility]-[id number] 14:45:00 Test Item Value Reference Range Interpretation Comments POC-Hematocrit (test code 19 % 40-50 L : = 1857) Forming Machine Upkeep Mechanic/Techni won ID = [id number] for IBAY, MIGUEL Lab Interpretation (test Abnormal code = 27114-5) [facility]-Blood gases, [id number] 14:45:00 Test Item Value Reference Range Interpretation [...] tomated message] code = 1838) The system [employer] generated this result transmit ari reference range : 80.0 - 90.0 mm Hg. The reference r kevin was not used to interpret this result as normal/abnormal . SO2, Arterial-POC (test 96.0 % 96-97 code = 1839) HCO3, Arterilal-POC 18.6 meq/L 21-29 L (test code = 1840) BE, Arterial-POC (test -9.0 meq/L -2-3 L : HALIMA ARI AT [facility] code = 1841) [address] [facility] [place], [address]: Forming Machine Upkeep Mechanic/Techni won ID = [id number] for IBAY, MIGUEL Lab Interpretation Abnormal (test code = 59261-1) [facility]-[id number] 14:45:00 Test Item Value Reference Range Interpretation Comments POC-Potassium (test code 5.7 meq/L 3.6-5.5 H : T ENRIQUE AT [facility] = 1540) 6720 [facility] [place], 7[address] 30: Forming Machine Upkeep Mechanic/Techni won ID = [id number] for IBAY, MIGUEL Lab Interpretation (test Abnormal code = 51433-6) [facility]-[id number] 14:45:00 Test Item Value Reference Range Interpretation Comments POC-Sodium (test code = 134 meq/L 135-148 L : TE STED AT [facility] 1542) 6720 [facility], 770 30: Forming Machine Upkeep Mechanic/Techni won ID = [id number] for IBAY, MIGUEL Lab Interpretation (test Abnormal code = 80997-4) [facility]-[id number] 14:45:00 Test Item Value Reference Range Interpretation Comments POC-Glucose (test code = 264 mg/dL 70-110 H : T ESTED AT [facility] 1855) 20 [facility], 770 30: Forming Machine Upkeep Mechanic/Techni won ID = [id number] for IBAY, MIGUEL Lab Interpretation (test Abnormal code = 95950-6) [facility]-[id number] 14:45:00 Test Item Value Reference Range Interpretation Comments POC-Hemoglobin (test code 6.5 g/dL 13-16.8 L : TESTED AT [facility] = 1856) [address] [place] [address], 7[address]: Forming Machine Upkeep Mechanic/Techni won ID = [id number] for IBAY, MIGUEL Lab Interpretation (test Abnormal code = 01050-4) [facility]-[id number] 14:45:00 Test Item Value Reference Range Interpretation Comments POC-Hematocrit (test code 19 % 40-50 L : = 1857) Forming Machine Upkeep Mechanic/Techni won ID = [id number] for IBAY, MIGUEL Lab Interpretation (test Abnormal code = 73167-3) [facility]-Blood gases, [id number] 14:45:00 Test Item Value Reference Range Interpretation [...] tomated message] code = 1838) The system [employer] generated this result transmit ari reference range : 80.0 - 90.0 mm Hg. The reference r kevin was not used to interpret this result as normal/abnormal . SO2, Arterial-POC (test 96.0 % 96-97 code = 1839) HCO3, Arterilal-POC 18.6 meq/L 21-29 L (test code = 1840) BE, Arterial-POC (test -9.0 meq/L -2-3 L : HALIMA ARI AT [facility] code = 1841) [address] [place] [address], [address]: Forming Machine Upkeep Mechanic/Techni won ID = [id number] for IBAY, MIGUEL Lab Interpretation Abnormal (test code = 15855-2) [facility]-[id number] 14:45:00 Test Item Value Reference Range Interpretation Comments POC-Potassium (test code 5.7 meq/L 3.6-5.5 H : T ESTED AT [facility] = 1540) [address] [place] [address], 7[address]: Forming Machine Upkeep Mechanic/Techni won ID = [id number] for IBAY, MIGUEL Lab Interpretation (test Abnormal code = 82412-8) [facility]-[id number] 14:45:00 Test Item Value Reference Range Interpretation Comments POC-Sodium (test code = 134 meq/L 135-148 L : TE STED AT [facility] 1542) [address] [place] [address], 770 30: Forming Machine Upkeep Mechanic/Techni won ID = [id number] for IBAY, MIGUEL Lab Interpretation (test Abnormal code = 03495-4) [facility]-[id number] 14:45:00 Test Item Value Reference Range Interpretation Comments POC-Glucose (test code = 264 mg/dL 70-110 H : T ESTED AT [facility] 1855) [address] [place] [address], 770 30: Forming Machine Upkeep Mechanic/Techni won ID = [id number] for IBAY, MIGUEL Lab Interpretation (test Abnormal code = 06540-8) [facility]-[id number] 14:45:00 Test Item Value Reference Range Interpretation Comments POC-Hemoglobin (test code 6.5 g/dL 13-16.8 L : TESTED AT [facility] = 1856) [address] [place] [address], 770 30: Forming Machine Upkeep Mechanic/Techni won ID = [id number] for MIGUEL GANDARA Lab Interpretation (test Abnormal code = 23128-5) [facility]pti[facility]ROWA-[id number] 14:45:00 Test Item Value Reference Range Interpretation Comments POC-Hematocrit (test code 19 % 40-50 L : = 1857) Forming Machine Upkeep Mechanic/Techni won ID = [id number] for NICHOL, MIGUEL Lab Interpretation (test Abnormal code = 04422-7) [facility], [id number] 14:45:00 Test Item Value Reference Range Interpretation [...] -9.0 meq/L -2.0-3.0 L : TESTED AT [facility] 6720 ARTERIAL-POC [facility], (BEAKER) (test code [address]: = 1841) Forming Machine Upkeep Mechanic/Techni won ID = [id number] for MIGUEL GANDARA [id number] 14:45:00 Test Item Value Reference Range Interpretation Comments POC-SODIUM (BEAKER) 134 meq/L 135-148 L : TESTED AT [facility] 6720 (test code = 1542) [place], [address]: Forming Machine Upkeep Mechanic/Techni won ID = [id number] for NICHOL MIGUEL [id number] 14:45:00 Test Item Value Reference Range Interpretation Comments POC-POTASSIUM 5.7 meq/L 3.6-5.5 H : TESTED AT [facility] 67 ([facility]) (test code SHANNA [facility], = 1540) [address]: Forming Machine Upkeep Mechanic/Techni won ID = [id number] for MIGUEL GANDARA OJUT-[id number] 14:45:00 Test Item Value Reference Range Interpretation Comments POC-HEMOGLOBIN 6.5 g/dL 13.0-16.8 L : TESTED AT [facility] 67 ([facility]) (test code = [place], 1856) [address]: Forming Machine Upkeep Mechanic/Techni won ID = [id number] for MIGUEL GANDARA [id number] 14:45:00 Test Item Value Reference Range Interpretation Comments POC-HEMATOCRIT 19 % 40-50 L : Forming Machine Upkeep Mechanic/Te chnician ID = ([facility]) (test code = 891677 for MIGUEL GANDARA 185) [id number] 14:45:00 Test Item Value Reference Range Interpretation Comments POC-GLUCOSE ([facility]) 264 mg/dL 70-110 H : TESTE D AT [place] [address] (test code = 1855) SHANNA [place] [facility] [place], [address]: Forming Machine Upkeep Mechanic/Techni won ID = [id number] for MIGUEL GANDARA POCT-GLUCOSE [id number] 14:32:00 Test Item Value Reference Range Interpretation Comments POC-GLUCOSE METER 70 mg/dL 70-110 : TESTED A T [facility] 67 ([facility]) (test code = [place], 1538) [address]: Forming Machine Upkeep Mechanic/Techni won ID = [id number] for [facility] CENTERJACOBY THOMPSON POC-Blood gases, [id number] 14:27:00 Test Item Value Reference Range Interpretation Comments Temp. Celsius-POC (test code = 1834) FIO2-POC (test code = 1835) pH, Venous-POC (test 7.225 7.320-7.420 L : TESTE D AT [facility] code = 1842) [address] [place], [address] PCO2, Venous-POC (test 57.9 See_Comment H If [...] mated message] code = 1844) The system [employer] generated this result transmit ari reference range : 25.0 - 40.0 mm Hg. The reference r kevin was not used to interpret this result as normal/abnormal . SO2, Venous-POC (test 35.0 % 40-70 L code = 1845) HCO3, Venous-POC (test 24.0 meq/L 21-29 code = 1846) BE, Venous-POC (test -4.0 meq/L -2-3 L : code = 1847) Forming Machine Upkeep Mechanic/Techni won ID = [id number] for IBAY, MIGUEL Lab Interpretation Abnormal (test code = 88514-4) [facility]-Blood gases, [id number] 14:27:00 Test Item Value Reference Range Interpretation Comments Temp. Celsius-POC (test code = 1834) FIO2-POC (test code = 1835) pH, Venous-POC (test 7.225 7.320-7.420 L : TESTE D AT [facility] code = 1842) [address] [place], [address] PCO2, Venous-POC (test 57.9 See_Comment H If [...] mated message] code = 1844) The system [employer] generated this result transmit ari reference range : 25.0 - 40.0 mm Hg. The reference r kevin was not used to interpret this result as normal/abnormal . SO2, Venous-POC (test 35.0 % 40-70 L code = 1845) HCO3, Venous-POC (test 24.0 meq/L 21-29 code = 1846) BE, Venous-POC (test -4.0 meq/L -2-3 L : code = 1847) Forming Machine Upkeep Mechanic/Techni won ID = [id number] for IBAY, MIGUEL Lab Interpretation Abnormal (test code = 42745-4) [facility]-Blood gases, [id number] 14:27:00 Test Item Value Reference Range Interpretation Comments Temp. Celsius-POC (test code = 1834) FIO2-POC (test code = 1835) pH, Venous-POC (test 7.225 7.320-7.420 L : TESTE D AT [facility] code = 1842) [address] [facility] [place], [address] PCO2, Venous-POC (test 57.9 See_Comment H If [...] mated message] code = 1844) The system [employer] generated this result transmit ari reference range : 25.0 - 40.0 mm Hg. The reference r kevin was not used to interpret this result as normal/abnormal . SO2, Venous-POC (test 35.0 % 40-70 L code = 1845) HCO3, Venous-POC (test 24.0 meq/L 21-29 code = 1846) BE, Venous-POC (test -4.0 meq/L -2-3 L : code = 1847) Forming Machine Upkeep Mechanic/Techni won ID = [id number] for DIANNA GANDARAEN Lab Interpretation Abnormal (test code = 88558-7) [facility]-BLOOD GASES, [id number] 14:27:00 Test Item Value Reference Range Interpretation Comments TEMP, CELSIUS-POC (BEAKER) (test code = 1834) FIO2-POC (BEAKER) (test code = 1835) PH, VENOUS-POC 7.225 7.320-7.420 L : TESTED AT [facility] 6720 (BEAKER) (test code [place], = 1842) [address] PCO2, VENOUS-POC 57.9 mm Hg 41.0-51.0 H If pO2 is > 180, pCO2 may (BEAKER) (test code be posit ively biased = 1843) PO2, VENOUS-POC 26.0 mm Hg 25.0-40.0 (BEAKER) (test code = 1844) SO2, VENOUS-POC 35.0 % 40.0-70.0 L ([facility]) (test code = 1845) HCO3, VENOUS-POC 24.0 meq/L 21.0-29.0 ([facility]) (test code = 1846) BASE EXCESS, -4.0 meq/L -2.0-3.0 L : Forming Machine Upkeep Mechanic/Tech nician ID VENOUS-POC ([facility]) = [id number] for MIGUEL GANDARA (test code = 1847) [id number] 14:27:00 Test Item Value Reference Range Interpretation Comments POC-SODIUM ([facility]) 138 meq/L 135-148 : TESTED AT [place] [address] (test code = 1542) SHANNA [facility], [address]: Forming Machine Upkeep Mechanic/Techni won ID = [id number] for MIGUEL GANDARA [id number] 14:27:00 Test Item Value Reference Range Interpretation Comments POC-POTASSIUM 6.2 meq/L 3.6-5.5 HH : TESTED AT [place] [address] ([facility]) (test code [facility], = 1540) [address]: Forming Machine Upkeep Mechanic/Techni won ID = [id number] for MIGUEL GANDARA [id number]-[id number] 14:27:00 Test Item Value Reference Range Interpretation Comments POC-HEMOGLOBIN 6.5 g/dL 13.0-16.8 L : TESTED AT [place] [address] ([facility]) (test code = NORM Tenorio [facility], 1856) [address]: Forming Machine Upkeep Mechanic/Techni won ID = [id number] for MIGUEL GANDARA [id number] 14:27:00 Test Item Value Reference Range Interpretation Comments POC-HEMATOCRIT 19 % 40-50 L : Forming Machine Upkeep Mechanic/Te chnician ID = ([facility]) (test code = 855094 for MIGUEL GANDARA 185) [id number] 14:27:00 Test Item Value Reference Range Interpretation Comments POC-GLUCOSE ([facility]) 43 mg/dL 70-110 L : TESTE D AT [place] [address] (test code = 1855) SHANNA [facility] [place], [address]: Forming Machine Upkeep Mechanic/Techni won ID = [id number] for MIGUEL GANDARA CBC W/PLT COUNT & AUTO [id number] 11:27:00 Test Item Value Reference Range Interpretation [...] CONCENTRATION Adequate (CELLAVISION)(BEAKER) (test code = 3438) Forming Machine Upkeep Mechanic ID - Loren Sethi comments: Slide comments:SPUTUM CULTURE + GRAM [id number] 08:40:00 Test Item Value Reference Range Interpretation [...] epithelial RESULT cells (BEAKER) (test code = 886850) GRAM STAIN No organisms seen RESULT (BEAKER) (test code = 154343) <1+ Normal respiratory mendy presentBRONCHIAL CULTURE + GRAM [id number] 08:39:00 Test Item Value Reference Interpretation Comments [...] No organisms seen (BEAKER) (test code = 701767) 1+ Normal respiratory mendy [id number] 07:27:00 Test Item Value Reference Range Interpretation Comments PARTIAL THROMBOPLASTIN TIME 77.8 seconds 22.5-36.0 H (BEAKER) (test code = 760) [id number] 06:36:00 Test Item Value Reference Range Interpretation Comments PARTIAL THROMBOPLASTIN TIME 65.8 seconds 22.5-36.0 H (BEAKER) (test code = 760) PROTHROMBIN [id number] 06:35:00 Test Item Value Reference Range Interpretation Comments PROTIME (BEAKER) 16.1 seconds 11.9-14.2 H (test code = 759) INR (BEAKER) (test 1.31 See_Comment [Automat ed message] code = 370) The system [employer] generated this result transmitted ref erence range: <=5.90. The reference range was not used to int erpret this result as normal/abnormal . RECOMMENDED COUMADIN/WARFARIN INR THERAPY RANGESSTANDARD DOSE: 2.0 - 3.0 Includes: PROPHYLAXIS for venous thrombosis, systemic embolization; TREATMENT for venous thrombosis and/or pulmonary embolus.HIGH RISK: Target INR is 2.5-3.5 for patients with mechanical heart valves.BASIC METABOLIC [id number] 05:07:00 Test Item Value Reference Range Interpretation [...] S NOT APPLICABLE FOR DIALYSIS PATIEN TS. Forming Machine Upkeep Mechanic ID - [id number] 04:57:00 Test Item Value Reference Range Interpretation Comments MAGNESIUM (BEAKER) (test code = 2.2 mg/dL 1.6-2.6 627) Forming Machine Upkeep Mechanic ID - [id number] 04:57:00 Test Item Value Reference Range Interpretation Comments PHOSPHORUS (BEAKER) (test code = 6.4 mg/dL 2.3-4.7 H 604) Forming Machine Upkeep Mechanic ID - ADMINRAD, CHEST, 1 VIEW, NON [id number] 01:08:00Reason for exam:->chest tubes, s/p cardiac surgeryShould this be performed at the bedside?->[facility] : 1975 Sex: MFINAL REPORT CLINICAL INDICATION: Postop Comparison: 01/15/2021 The cardiomediastinal contours are stable. Central pulmonary vascular congestion and bilateral parenchymal opacities are similar to previous. There is no pneumothorax. A left chest tube has been removed. A left IJ CVC remains in place. Signed: Domingo Duron Verified Date/Time: 01/16/2021 01:08:13 POCT- GLUCOSE [id number] 00:14:00 Test Item Value Reference Range Interpretation Comments POC-GLUCOSE METER 96 mg/dL 70-110 : TESTED A T [facility] 6720 (TAMARA) (test code = NORM Tenorio [facility], 1538) [address]: Forming Machine Upkeep Mechanic/Techni won ID = [id number] for VI PRIETO [id number] 23:26:00 Test Item Value Reference Range Interpretation Comments PARTIAL THROMBOPLASTIN TIME 54.3 seconds 22.5-36.0 H (TAMARA) (test code = 760) Lipid [id number] 22:53:00 Test Item Value Reference Range Interpretation Comments Triglycerides (test 84 mg/dL code = 2571-8) Cholesterol (test code 111 mg/dL = 2093-3) HDL (test code = 25 mg/dL 2085-9) LDL Calculated (test 69 mg/dL code = 08430-8) CARLEY (test code = CARLEY) Triglyceride Reference Range: Low Risk <150 Borderline 150-199 High Risk 200-499 Very High Risk >=500 Cholesterol Reference Range: Low Risk <200 Borderline 200-239 High Risk >240 HDL Cholesterol Reference Range: Low Risk >=60 High Risk <40 LDL Cholesterol Reference Range: Optimal <100 Near Optimal 100-129 Borderline 130-159 High 160-189 Very High >=190 Forming Machine Upkeep Mechanic ID - DB [facility] [id number] 22:53:00 Test Item Value Reference Range Interpretation Comments Triglycerides (test 84 mg/dL code = 2571-8) Cholesterol (test code 111 mg/dL = 3-3) HDL (test code = 25 mg/dL 2085-02) LDL Calculated (test 69 mg/dL code = 52407-4) CARLEY (test code = CARLEY) Triglyceride Reference Range: Low Risk <150 Borderline 150-199 High Risk 200-499 Very High Risk >=500 Cholesterol Reference Range: Low Risk <200 Borderline 200-239 High Risk >240 HDL Cholesterol Reference Range: Low Risk >=60 High Risk <40 LDL Cholesterol Reference Range: Optimal <100 Near Optimal 100-129 Borderline 130-159 High 160-189 Very High >=190 Forming Machine Upkeep Mechanic ID - DB [facility] [id number] 22:53:00 Test Item Value Reference Range Interpretation Comments Triglycerides (test 84 mg/dL code = 2571-8) Cholesterol (test code 111 mg/dL = 3-3) HDL (test code = 25 mg/dL 2085-02) LDL Calculated (test 69 mg/dL code = 95299-9) CARLEY (test code = CARLEY) Triglyceride Reference Range: Low Risk <150 Borderline 150-199 High Risk 200-499 Very High Risk >=500 Cholesterol Reference Range: Low Risk <200 Borderline 200-239 High Risk >240 HDL Cholesterol Reference Range: Low Risk >=60 High Risk <40 LDL Cholesterol Reference Range: Optimal <100 Near Optimal 100-129 Borderline 130-159 High 160-189 Very High >=190 Forming Machine Upkeep Mechanic ID - DB [facility] CenterLIPID [id number] 22:53:00 Test Item Value Reference Range Interpretation [...] Borderline 130-159 High 160-189 Very High >=190 Forming Machine Upkeep Mechanic ID - DBBLOOD [id number] 19:01:00 Test Item Value Reference Range Interpretation Comments CULTURE (BEAKER) (test No growth in 5 days code = 1095) BLOOD [id number] 18:01:00 Test Item Value Reference Range Interpretation Comments CULTURE (BEAKER) (test No growth in 5 days code = 1095) POCT-GLUCOSE [id number] 12:26:00 Test Item Value Reference Range Interpretation Comments POC-GLUCOSE METER 101 mg/dL 70-110 : TESTED A T [facility] 6720 (BEAKER) (test code = NORM Tenorio [facility], 1538) [address]: Forming Machine Upkeep Mechanic/Techni won ID = [id number] for Paige Russell [id number] 09:21:00 Test Item Value Reference Range Interpretation Comments PARTIAL THROMBOPLASTIN TIME 35.0 seconds 22.5-36.0 (BEAKER) (test code = 760) RAD, CHEST, 1 VIEW, NON [id number] 09:14:00Reason for exam:->chest tubes, s/p cardiac surgeryShould this be performed at the bedside?->Yes [facility] : 1975 Sex: MFINAL REPORT RAD, CHEST, 1 VIEW, NON DEPT INDICATION: chest tubes, s/p cardiac surgery COMPARISON: Prior day's exam FINDINGS: Portable frontal view of the chest. IMPRESSION: Support Lines: Stable. Lungs and pleura: Unchanged airspace and interstitial opacities. No pneumothorax.Heart and mediastinum: Stable contours. Stable surgical changes.Additional findings: None. Signed: JR Tate Robert MDReport Verified Date/Time: 01/15/2021 09:14:18 Reading Location: [address] Neuro Reading Room POCT-GLUCOSE [id number] 08:23:00 Test Item Value Reference Range Interpretation Comments POC-GLUCOSE METER 104 mg/dL 70-110 : TESTED A T [facility] 6720 (BEAKER) (test code = NORM Tenorio [facility], 1538) [address]: Forming Machine Upkeep Mechanic/Techni won ID = [id number] for Da vis, Paige CBC W/PLT COUNT & AUTO [id number] 06:50:00 Test Item Value Reference Range Interpretation [...] CONCENTRATION Adequate (CELLAVISION)(BEAKER) (test code = 3438) Forming Machine Upkeep Mechanic ID - Dariela OverholtUser comments: Slide comments:[id number] 04:17:00 Test Item Value Reference Range Interpretation Comments MAGNESIUM (BEAKER) (test code = 2.1 mg/dL 1.6-2.6 627) Forming Machine Upkeep Mechanic ID - KENNETH WCOMPREHENSIVE METABOLIC [id number] 04:17:00 Test Item Value Reference Range Interpretation [...] S NOT APPLICABLE FOR DIALYSIS PATIEN TS. Forming Machine Upkeep Mechanic ID - KENNETH MIDDLETONROTHROMBIN TIME/[id number] 03:53:00 Test Item Value Reference Range Interpretation Comments PROTIME (BEAKER) 15.1 seconds 11.9-14.2 H (test code = 759) INR (BEAKER) (test 1.21 See_Comment [Automat ed message] code = 370) The system [employer] generated this result transmitted ref erence range: <=5.90. The reference range was not used to int erpret this result as normal/abnormal . RECOMMENDED COUMADIN/WARFARIN INR THERAPY RANGESSTANDARD DOSE: 2.0 - 3.0 Includes: PROPHYLAXIS for venous thrombosis, systemic embolization; TREATMENT for venous thrombosis and/or pulmonary embolus.HIGH RISK: Target INR is 2.5-3.5 for patients with mechanical heart valves.POCT-GLUCOSE [id number] 21:26:00 Test Item Value Reference Range Interpretation Comments POC-GLUCOSE METER 77 mg/dL 70-110 : Notified RN/MD: TESTED (BEAKER) (test code = AT [facility] 6720 [facility] 1538) [facility], [facility] 30: Forming Machine Upkeep Mechanic/Techni won ID = [id number] for Tiago calvo (contract), [place] PROTHROMBIN [id number] 13:30:00 Test Item Value Reference Range Interpretation Comments PROTIME (BEAKER) 15.3 seconds 11.9-14.2 H (test code = 759) INR (BEAKER) (test 1.23 See_Comment [Automat ed message] code = 370) The system [employer] generated this result transmitted ref erence range: <=5.90. The reference range was not used to int erpret this result as normal/abnormal . RECOMMENDED COUMADIN/WARFARIN INR THERAPY RANGESSTANDARD DOSE: 2.0 - 3.0 Includes: PROPHYLAXIS for venous thrombosis, systemic embolization; TREATMENT for venous thrombosis and/or pulmonary embolus.HIGH RISK: Target INR is 2.5-3.5 for patients with mechanical heart valves.Hepatitis B surface [id number] 11:35:00 Test Item Value Reference Range Interpretation Comments HBsAg Screen (test code Nonreactive Nonreactive = 5195-3) CARLEY (test code = CARLEY) Specimen is considered negative for HBsAg. Lab Interpretation (test Normal code = 99687-2) [facility] [id number] 11:35:00 Test Item Value Reference Range Interpretation Comments HBsAg Screen (test code Nonreactive Nonreactive = 5195-3) CARLEY (test code = CARLEY) Specimen is considered negative for HBsAg. Lab Interpretation (test Normal code = 91951-6) [facility] B surface [id number] 11:35:00 Test Item Value Reference Range Interpretation Comments HBsAg Screen (test code Nonreactive Nonreactive = 5195-3) CARLEY (test code = CARLEY) Specimen is considered negative for HBsAg. Lab Interpretation (test Normal code = 82376-4) [facility] B SURFACE [id number] 11:35:00 Test Item Value Reference Range Interpretation Comments HEPATITIS B SURFACE ANTIGEN (2) Nonreactive Nonreactive (BEAKER) (test code = 2585) Specimen is considered negative for HBsAg.SURGICALLY OBTAINED CULTURE + GRAM [id number] 08:16:00 Test Item Value Reference Interpretation Comments [...] No organisms seen (BEAKER) (test code = 457368) CBC W/PLT COUNT & AUTO [id number] 08:08:00 Test Item Value Reference Range Interpretation [...] CONCENTRATION Decreased (CELLAVISION)(BEAKER) (test code = 3438) Forming Machine Upkeep Mechanic ID - Dariela OverholtUser comments: Slide comments:POCT-GLUCOSE METER 2021-01-14 07:33:00 Test Item Value Reference Range Interpretation Comments POC-GLUCOSE METER 103 mg/dL 70-110 : TESTED A T [facility] 6720 (BEAKER) (test code = NORM [place], 1538) 930[address]: Forming Machine Upkeep Mechanic/Techni won ID = [id number] for Manuelito Chavez RAD, CHEST, 1 VIEW, NON [id number] 05:56:00Reason for exam:->ettShould this be performed at the bedside?->Yes [facility] 1975 Sex: [...] findings: None. Signed: Re Cantu Verified Date/Time: 01/14/2021 05:56:32 MAGNESIUM 2021-01-14 04:21:00 Test Item Value Reference Range Interpretation Comments MAGNESIUM (BEAKER) (test code = 2.3 mg/dL 1.6-2.6 627) Forming Machine Upkeep Mechanic ID - VALDEZ [facility] [id number] 04:05:00 Test Item Value Reference Range Interpretation [...] S NOT APPLICABLE FOR DIALYSIS PATIEN TS. Forming Machine Upkeep Mechanic ID - DBPOCT-GLUCOSE [id number] 03:46:00 Test Item Value Reference Range Interpretation Comments POC-GLUCOSE METER 83 mg/dL 70-110 : TESTED A T [facility] 6720 (BEAKER) (test code = N[place], 1538) 809[address]: Forming Machine Upkeep Mechanic/Techni won ID = [id number] for Asa longHarrietchinalinda RAD, CHEST, 1 VIEW, NON [id number] 19:37:00Reason for exam:->LIJ HD catheter placementShould this be performed at the bedside?->Yes [facility] 1975 Sex: MFINAL [...] bone abnormality. Signed: Jerzy Ferrell Verified Date/Time: 01/13/2021 19:37:01 Reading Location: [address] Consult Reading Room Central Line (HD catheter [...] to verify the correct patient, procedure, equipment, application support manager and site/side marked as required.Indications: vascular access [...] NoneType of anesthesia: NoneGrafts or Implants: NoneCH[facility] HospitalCentral [facility] (HD catheter J-Wire) 2021-01-13 18:52:29Chapo Kennedy [...] to verify the correct patient, procedure, equipment, application support manager and site/side marked as required.Indications: vascular access [...] NoneComplications: NoneType of anesthesia: NoneGrafts or Implants: [facility] Central Line (HD catheter J-Wire)2021-01-13 18:52:29Chapo Kennedy [...] to verify the correct patient, procedure, equipment, application support manager and site/side marked as required.Indications: vascular access [...] NoneType of anesthesia: NoneGrafts or Implants: NoneCHI [facility] HospitalPOCT-GLUCOSE [id number] 17:36:00 Test Item Value Reference Range Interpretation Comments POC-GLUCOSE METER 100 mg/dL 70-110 : [facility] (BEAKER) (test code = RAYMONJOBY [place]Z [place], 1538) 305[address]: Forming Machine Upkeep Mechanic/Techni won ID = [id number] for ABRAN PALOMINO BASIC METABOLIC [id number] 15:58:00 Test Item Value Reference Range Interpretation [...] S NOT APPLICABLE FOR DIALYSIS PATIEN TS. Forming Machine Upkeep Mechanic ID - [id number] 15:56:00 Test Item Value Reference Range Interpretation Comments MAGNESIUM (BEAKER) (test code = 2.2 mg/dL 1.6-2.6 627) Forming Machine Upkeep Mechanic ID - DBBLOOD GAS, [id number] 15:43:00 Test Item Value Reference Range Interpretation [...] FIO2 (BEAKER) (test code = 1819) 40.0 [id number] 12:57:00 Test Item Value Reference Range Interpretation Comments POTASSIUM (BEAKER) (test code = 3.9 meq/L 3.5-5.1 379) Forming Machine Upkeep Mechanic ID - VIRGILIO MBLOOD GAS, [id number] 12:14:00 Test Item Value Reference Range Interpretation [...] (BEAKER) (test code = 1819) 40.0 POCT-GLUCOSE [id number] 12:04:00 Test Item Value Reference Range Interpretation Comments POC-GLUCOSE METER 105 mg/dL 70-110 : TESTED A T [facility] 6720 (BEAKER) (test code = NORM Jona [place], 1538) 618[address]: Forming Machine Upkeep Mechanic/Techni won ID = [id number] for DU ABRAN ESPANA [id number] 09:59:00 Test Item Value Reference Range Interpretation Comments MAGNESIUM (BEAKER) (test code = 2.2 mg/dL 1.6-2.6 627) Forming Machine Upkeep Mechanic ID - [id number] 09:59:00 Test Item Value Reference Range Interpretation Comments PHOSPHORUS (BEAKER) (test code = 4.6 mg/dL 2.3-4.7 604) Forming Machine Upkeep Mechanic ID - [id number] 09:59:00 Test Item Value Reference Range Interpretation Comments POTASSIUM (BEAKER) (test code = 3.7 meq/L 3.5-5.1 379) Forming Machine Upkeep Mechanic ID - BSGLUCOSE-STAT [id number] 09:38:00 Test Item Value Reference Range Interpretation Comments GLUCOSE RANDOM (BEAKER) (test code 119 mg/dL 70-110 H = 652) HGB/HCT (H&H) - STAT [id number] 09:38:00 Test Item Value Reference Range Interpretation Comments HEMOGLOBIN (BEAKER) (test code = 8.3 GM/DL 13.0-16.8 L 410) HEMATOCRIT (BEAKER) (test code = 24.0 % 40.0-50.0 L 411) POTASSIUM-STAT [id number] 09:38:00 Test Item Value Reference Range Interpretation Comments POTASSIUM (BEAKER) (test code = 3.4 meq/L 3.6-5.5 L 379) BLOOD GAS, [id number] 09:37:00 Test Item Value Reference Range Interpretation [...] (test code = 1819) 40.0 SODIUM NA-STAT [id number] 09:34:00 Test Item Value Reference Range Interpretation Comments SODIUM (BEAKER) (test code = 381) 135 meq/L 136-145 L SPUTUM CULTURE + GRAM [id number] 08:30:00 Test Item Value Reference Interpretation Comments [...] 5-10 epithelial (BEAKER) (test code = cells 050842) GRAM STAIN RESULT No organisms seen (BEAKER) (test code = 417060) <1+ Normal respiratory mendy presentCBC W/PLT COUNT [...] CONCENTRATION Decreased (CELLAVISION)(BEAKER) (test code = 3438) Forming Machine Upkeep Mechanic ID - Sun Menendez comments: Slide comments:RAD, CHEST, 1 VIEW, NON [id number] 07:21:00Reason for exam:->ettShould this be performed at the bedside?->Yes[facility] : 1975 Sex: MFINAL REPORT RAD, CHEST, 1 VIEW, NON DEPT INDICATION: ett COMPARISON: Prior day's exam FINDINGS: Portable frontal view of the chest. IMPRESSION: Support Lines: Stable. Lungs and pleura:No new consolidation. No pneumothorax.Heart and mediastinum: Stable contours. Stable surgical changes .Additional findings: None. Signed: JR Tate Robert MDReport Verified Date/Time: 107:21:00 Reading Location: [facility] Radiology Reading Room REHENSIVE METABOLIC [id number] 04:58:00 Test Item Value Reference Range Interpretation [...] S NOT APPLICABLE FOR DIALYSIS PATIEN TS. Forming Machine Upkeep Mechanic ID - LINA [id number] 04:46:00 Test Item Value Reference Range Interpretation Comments MAGNESIUM (BEAKER) (test code = 2.2 mg/dL 1.6-2.6 627) Forming Machine Upkeep Mechanic ID - LINA [id number] 04:46:00 Test Item Value Reference Range Interpretation Comments PHOSPHORUS (BEAKER) (test code = 4.3 mg/dL 2.3-4.7 604) Forming Machine Upkeep Mechanic ID - LINA LBLOOD GAS, [id number] 04:11:00 Test Item Value Reference Range Interpretation [...] FIO2 (BEAKER) (test code = 1819) 40.0 [id number] 21:46:00 Test Item Value Reference Range Interpretation Comments MAGNESIUM (BEAKER) (test code = 2.3 mg/dL 1.6-2.6 627) Forming Machine Upkeep Mechanic ID - [id number] 21:46:00 Test Item Value Reference Range Interpretation Comments PHOSPHORUS (BEAKER) (test code = 4.3 mg/dL 2.3-4.7 604) Forming Machine Upkeep Mechanic ID - [id number] 21:46:00 Test Item Value Reference Range Interpretation Comments POTASSIUM (BEAKER) (test code = 4.2 meq/L 3.5-5.1 379) Forming Machine Upkeep Mechanic ID - DARBY, [id number] 21:28:00 Test Item Value Reference Range Interpretation Comments PH ARTERIAL (BEAKER) (test code = 383) 7.46 7.35-7.45 H BASIC METABOLIC [id number] 15:47:00 Test Item Value Reference Range Interpretation [...] S NOT APPLICABLE FOR DIALYSIS PATIEN TS. Forming Machine Upkeep Mechanic ID - VALDEZ [id number] 15:39:00 Test Item Value Reference Range Interpretation Comments MAGNESIUM (BEAKER) (test code = 2.4 mg/dL 1.6-2.6 627) Forming Machine Upkeep Mechanic ID - VALDEZ [id number] 15:39:00 Test Item Value Reference Range Interpretation Comments PHOSPHORUS (BEAKER) (test code = 5.1 mg/dL 2.3-4.7 H 604) Forming Machine Upkeep Mechanic ID - VALDEZ MBASIC METABOLIC [id number] 10:19:00 Test Item Value Reference Range Interpretation [...] S NOT APPLICABLE FOR DIALYSIS PATIEN TS. Forming Machine Upkeep Mechanic ID - VALDEZ [id number] 10:18:00 Test Item Value Reference Range Interpretation Comments MAGNESIUM (BEAKER) (test code = 2.5 mg/dL 1.6-2.6 627) Forming Machine Upkeep Mechanic ID - VALDEZ [id number] 10:18:00 Test Item Value Reference Range Interpretation Comments PHOSPHORUS (BEAKER) (test code = 5.9 mg/dL 2.3-4.7 H 604) Forming Machine Upkeep Mechanic ID - VALDEZ MCBC W/PLT COUNT & AUTO [id number] 08:15:00 Test Item Value Reference Range Interpretation [...] CONCENTRATION Decreased (CELLAVISION)(BEAKER) (test code = 3438) Forming Machine Upkeep Mechanic ID - Zaria Simons comments: Slide comments:POCT-GLUCOSE METER 2021-01-12 07:17:00 Test Item Value Reference Range Interpretation Comments POC-GLUCOSE METER 129 mg/dL 70-110 H : TESTED A T [facility] 6720 (BEAKER) (test code = NORM [place], 1538) 512[address]: Forming Machine Upkeep Mechanic/Techni won ID = [id number] for Be [facility], [employer] COMPREHENSIVE METABOLIC [id number] 04:04:00 Test Item Value Reference Range Interpretation [...] S NOT APPLICABLE FOR DIALYSIS PATIEN TS. Forming Machine Upkeep Mechanic ID - VALDEZ [id number] 03:58:00 Test Item Value Reference Range Interpretation Comments MAGNESIUM (BEAKER) (test code = 2.7 mg/dL 1.6-2.6 H 627) Forming Machine Upkeep Mechanic ID - VALDEZ [id number] 03:58:00 Test Item Value Reference Range Interpretation Comments PHOSPHORUS (BEAKER) (test code = 5.8 mg/dL 2.3-4.7 H 604) Forming Machine Upkeep Mechanic ID - VALDEZ MLACTIC ACID, [id number] 03:50:00 Test Item Value Reference Range Interpretation Comments LACTATE BLOOD ARTERIAL (2) 1.0 mmol/L 0.5-2.2 (BEAKER) (test code = 2874) Forming Machine Upkeep Mechanic ID - VALDEZ MOXYGEN SATURATION, [id number] 03:42:00 Test Item Value Reference Range Interpretation Comments O2 SATURATION (MEASURED) (BEAKER) 70.7 % (test code = 1455) BLOOD GAS, [id number] 03:42:00 Test Item Value Reference Range Interpretation [...] (BEAKER) (test code = 1819) 40.0 CALCIUM, [id number] 03:41:00 Test Item Value Reference Range Interpretation Comments CALCIUM IONIZED (BEAKER) (test 1.15 mmol/L 1.12-1.27 code = 698) PH, BLOOD (BEAKER) (test code = 7.44 1810) POCT-GLUCOSE [id number] 03:37:00 Test Item Value Reference Range Interpretation Comments POC-GLUCOSE METER 132 mg/dL 70-110 H : TESTED A T [facility] 6720 (BEAKER) (test code = N[place], 1538) 02685: Forming Machine Upkeep Mechanic/Techni won ID = [id number] for Be rki, Meti RAD, CHEST, 1 VIEW, NON [id number] 03:17:00Reason for exam:->ettShould this be performed at the bedside?->Yes [facility] 1975 Sex: MFINAL REPORT CLINICAL INDICATION: Support lines. Comparison: 01/11/2021 at 1946 hours The patient is rotated to the left. The cardiomediastinal contours are stable. Central pulmonary vascular congestion and bilateral parenchymal opacities are unchanged. There is no pneumothorax. Support lines are stable. Signed: Domingo Duron Verified Date/Time: 01/12/2021 03:17:44 BASIC METABOLIC [id number] 22:54:00 Test Item Value Reference Range Interpretation [...] S NOT APPLICABLE FOR DIALYSIS PATIEN TS. Forming Machine Upkeep Mechanic ID - BSLACTIC ACID, [id number] 22:45:00 Test Item Value Reference Range Interpretation Comments LACTATE BLOOD ARTERIAL (2) 1.9 mmol/L 0.5-2.2 (BEAKER) (test code = 2874) Forming Machine Upkeep Mechanic ID - BSBLOOD GAS, [id number] 22:37:00 Test Item Value Reference Range Interpretation [...] Time (test code = The system which 87732-4) generated this result transmitted ref erence range: 4.0 - 7. 0 minutes. The re ference range was not u sed to interpret this result as normal/abnor mal. TEG Fibrinogen Activity 71.6 See_Comment [Au tomated message] (test code = 21961-0) The sy stem which generated this result transmitted ref erence range: 61.0 - 7 3.0 degrees. The re ference range was not u sed to interpret this result as normal/abnor mal. TEG Platelet Aggregation 64.6 See_Comment [A utomated message] (test code = 05303-8) The sy stem which generated this result transmitted ref erence range: 55.0 - 6 5.0 MM. The reference r kvein was not used to interpret this result as normal/abnor mal. TEG Fibrinolysis (test 0.0 % 0-5 code = 17537-1) TEG-H Activated Clotting 5.8 See_Comment [A utomated [...] 1414) Lab Interpretation (test Normal code = 91635-0) [facility]2021-[facility]-11 21:36:00 Test Item Value Reference Range Interpretation Comments TEG Activated Clotting 5.6 See_Comment [Aut omated message] Time (test code = The system which 76701-5) generated this result transmitted ref erence range: 4.0 - 7. 0 minutes. The re ference range was not u sed to interpret this result as normal/abnor mal. TEG Fibrinogen Activity 71.6 See_Comment [Au tomated message] (test code = 38884-2) The sy stem which generated this result transmitted ref erence range: 61.0 - 7 3.0 degrees. The re ference range was not u sed to interpret this result as normal/abnor mal. TEG Platelet Aggregation 64.6 See_Comment [A utomated message] (test code = 52613-3) The sy stem which generated this result transmitted ref erence range: 55.0 - 6 5.0 MM. The reference r kevin was not used to interpret this result as normal/abnor mal. TEG Fibrinolysis (test 0.0 % 0-5 code = 74946-4) TEG-H Activated Clotting 5.8 See_Comment [A utomated [...] 1414) Lab Interpretation (test Normal code = 28962-7) [facility]2021-[facility]-11 21:36:00 Test Item Value Reference Range Interpretation Comments TEG Activated Clotting 5.6 See_Comment [Aut omated message] Time (test code = The system which 90520-3) generated this result transmitted ref erence range: 4.0 - 7. 0 minutes. The re ference range was not u sed to interpret this result as normal/abnor mal. TEG Fibrinogen Activity 71.6 See_Comment [Au tomated message] (test code = 35164-3) The sy stem which generated this result transmitted ref erence range: 61.0 - 7 3.0 degrees. The re ference range was not u sed to interpret this result as normal/abnor mal. TEG Platelet Aggregation 64.6 See_Comment [A utomated message] (test code = 66400-1) The sy stem which generated this result transmitted ref erence range: 55.0 - 6 5.0 MM. The reference r kevin was not used to interpret this result as normal/abnor mal. TEG Fibrinolysis (test 0.0 % 0-5 code = 29977-6) TEG-H Activated Clotting 5.8 See_Comment [A utomated [...] 1414) Lab Interpretation (test Normal code = 15875-7) [facility]ROM[facility] (TEG)2021-01-11 21:36:00 Test Item Value [...] CONCENTRATION Decreased (CELLAVISION)(BEAKER) (test code = 3438) Forming Machine Upkeep Mechanic ID - ToritoSimran comments: Slide comments:BLOOD GAS, [...] (test code = 1819) 60.0 OXYGEN SATURATION, [id number] 20:58:00 Test Item Value Reference Range Interpretation Comments O2 SATURATION (MEASURED) (BEAKER) 76.5 % (test code = 1455) BASIC METABOLIC [id number] 20:23:00 Test Item Value Reference Range Interpretation [...] S NOT APPLICABLE FOR DIALYSIS PATIEN TS. Forming Machine Upkeep Mechanic ID - BSBLOOD GAS, [id number] 20:19:00 Test Item Value Reference Range Interpretation [...] (BEAKER) (test code = 1819) 60.0 GLUCOSE-STAT [id number] 20:19:00 Test Item Value Reference Range Interpretation Comments GLUCOSE RANDOM (BEAKER) (test code 172 mg/dL 70-110 H = 652) HGB/HCT (H&H) - STAT [id number] 20:19:00 Test Item Value Reference Range Interpretation Comments HEMOGLOBIN (BEAKER) (test code = 9.4 GM/DL 13.0-16.8 L 410) HEMATOCRIT (BEAKER) (test code = 28.0 % 40.0-50.0 L 411) SODIUM NA-STAT [id number] 20:17:00 Test Item Value Reference Range Interpretation Comments SODIUM (BEAKER) (test code = 381) 137 meq/L 136-145 POTASSIUM-STAT [id number] 20:17:00 Test Item Value Reference Range Interpretation Comments POTASSIUM (BEAKER) (test code = 4.4 meq/L 3.6-5.5 379) CALCIUM, [id number] 20:17:00 Test Item Value Reference Range Interpretation Comments CALCIUM IONIZED (BEAKER) (test 1.21 mmol/L 1.12-1.27 code = 698) PH, BLOOD (BEAKER) (test code = 7.28 1810) [id number] 20:13:00 Test Item Value Reference Range Interpretation Comments MAGNESIUM (BEAKER) (test code = 2.7 mg/dL 1.6-2.6 H 627) Forming Machine Upkeep Mechanic ID - [id number] 20:13:00 Test Item Value Reference Range Interpretation Comments PHOSPHORUS (BEAKER) (test code = 8.8 mg/dL 2.3-4.7 H 604) Forming Machine Upkeep Mechanic ID - BSLACTIC ACID, [id number] 20:08:00 Test Item Value Reference Range Interpretation Comments LACTATE BLOOD ARTERIAL (2) 2.4 mmol/L 0.5-2.2 H (BEAKER) (test code = 2874) Forming Machine Upkeep Mechanic ID - BSRAD, CHEST, 1 VIEW, NON [id number] 20:04:00Reason for exam:- >s/p cv surgeryShould this be performed at the bedside?->Yes [facility] : 1975 Sex: MFINAL REPORT [...] left IJ PA catheter tip overlies the right pulmonary artery. An enteric tube tip overlies left upper quadrant. A mediastinal drain and left chest tube are in place. Signed: Domingo Duron [facility] Verified Date/Time: 01/11/2021 20:04:03 [id number] 20:02:00 Test Item Value Reference Range Interpretation Comments FIBRINOGEN LEVEL (TAMARA) (test 318 mg/dl 225-434 code = 658) [id number] 20:02:00 Test Item Value Reference Range Interpretation Comments PARTIAL THROMBOPLASTIN TIME 30.3 seconds 22.5-36.0 (TAMARA) (test code = 760) PROTHROMBIN TIME/[id number] 20:01:00 Test Item Value Reference Range Interpretation Comments PROTIME (BEAKER) 18.8 seconds 11.9-14.2 H (test code = 759) INR (BEAKER) (test 1.60 See_Comment [Automat ed message] code = 370) The system [employer] generated this result transmitted ref erence range: [...] = 413) CBC W/PLT COUNT & AUTO [id number] 19:48:00 Test Item Value Reference Range Interpretation [...] (test code = 413) POC ACTIVATED CLOTTING [id number] 18:26:00 Test Item Value Reference Range Interpretation Comments Activated Clotting Time 125 sec : 74 -137 seconds, (test code = 441) Baseline: TESTED AT [address], [facility] 30: Forming Machine Upkeep Mechanic/Techni won ID = [id number] for CAST RO, JESSICA [facility] ACTIVATED CLOTTING [id number] 18:26:00 Test Item Value Reference Range Interpretation Comments Activated Clotting Time 125 sec : 74 -137 seconds, (test code = 441) Baseline: TESTED AT [address], [facility] 30: Forming Machine Upkeep Mechanic/Techni won ID = [id number] for CAST RO, JESSICA [facility] ACTIVATED CLOTTING [id number] 18:26:00 Test Item Value Reference Range Interpretation Comments Activated Clotting Time 125 sec : 74 -137 seconds, (test code = 441) Baseline: TESTED AT [address], [facility] 30: Forming Machine Upkeep Mechanic/Techni won ID = [id number] for CAST RO, JESSICA [id number][id number] 18:26:00 Test Item Value Reference Range Interpretation Comments ACTIVATED CLOTTING TIME 125 sec : 74 -137 seconds, (BEAKER) (test code = Baseli ne: TESTED AT 441) [address], [address]70 30: Forming Machine Upkeep Mechanic/Techni won ID = [id number] for CA STRO, JESSICA [id number] 18:25:00 Test Item Value Reference Range Interpretation Comments ACTIVATED CLOTTING TIME 120 sec : 74 -137 seconds, (BEAKER) (test code = Baseli ne: TESTED AT 441) [address], [facility] 30: Forming Machine Upkeep Mechanic/Techni won ID = [id number] for CA STRO, JESSICA [id number] 18:25:00 Test Item Value Reference Range Interpretation Comments ACTIVATED CLOTTING TIME 571 sec : 74 -137 seconds, (BEAKER) (test code = Baseli ne: TESTED AT 441) [address], [facility] 30: Forming Machine Upkeep Mechanic/Techni won ID = [id number] for CA STRO, JESSICA [id number] 18:25:00 Test Item Value Reference Range Interpretation Comments ACTIVATED CLOTTING TIME 687 sec : 74 -137 seconds, (BEAKER) (test code = Baseli ne: TESTED AT 441) [address], 770 30: Forming Machine Upkeep Mechanic/Techni won ID = [id number] for CA STRO, JESSICA [id number] 18:25:00 Test Item Value Reference Range Interpretation Comments ACTIVATED CLOTTING TIME 543 sec : 74 -137 seconds, (BEAKER) (test code = Baseli ne: TESTED AT 441) [address], 770 30: Forming Machine Upkeep Mechanic/Techni won ID = [id number] for CA STRO, JESSICA [id number] 18:25:00 Test Item Value Reference Range Interpretation Comments ACTIVATED CLOTTING TIME 368 sec : 74 -137 seconds, (BEAKER) (test code = Baseli ne: TESTED AT 441) [address], [facility] 30: Forming Machine Upkeep Mechanic/Techni won ID = [id number] for CA STRO, JESSICA PLATELET [id number] 18:11:00 Test Item Value Reference Range Interpretation Comments PLATELET COUNT (BEAKER) (test code 70 K/CU MM 150-450 L = 756) Forming Machine Upkeep Mechanic ID - [id number] ID - [id number] ID - [id number] 17:51:00 Test Item Value Reference Range Interpretation Comments FIBRINOGEN LEVEL (BEAKER) (test 334 mg/dl 225-434 code = 658) [id number] 17:51:00 Test Item Value Reference Range Interpretation Comments PARTIAL THROMBOPLASTIN TIME 29.2 seconds 22.5-36.0 (BEAKER) (test code = 760) BLOOD GAS, [id number] 17:50:00 Test Item Value Reference Range Interpretation [...] (BEAKER) (test code = 1819) 60.0 GLUCOSE-STAT [id number] 17:50:00 Test Item Value Reference Range Interpretation Comments GLUCOSE RANDOM (BEAKER) (test code 165 mg/dL 70-110 H = 652) HGB/HCT (H&H) - STAT [id number] 17:50:00 Test Item Value Reference Range Interpretation Comments HEMOGLOBIN (BEAKER) (test code = 8.9 GM/DL 13.0-16.8 L 410) HEMATOCRIT (BEAKER) (test code = 26.0 % 40.0-50.0 L 411) CALCIUM, [id number] 17:50:00 Test Item Value Reference Range Interpretation Comments CALCIUM IONIZED (BEAKER) (test 1.16 mmol/L 1.12-1.27 code = 698) PH, BLOOD (BEAKER) (test code = 7.34 1810) PROTHROMBIN [id number] 17:50:00 Test Item Value Reference Range Interpretation Comments PROTIME (BEAKER) 21.8 seconds 11.9-14.2 H (test code = 759) INR (BEAKER) (test 1.93 See_Comment [Automat ed message] code = 370) The system [employer] generated this result transmitted ref erence range: <=5.90. The reference range was not used to int erpret this result as normal/abnormal . RECOMMENDED COUMADIN/WARFARIN INR THERAPY RANGESSTANDARD DOSE: 2.0 - 3.0 Includes: PROPHYLAXIS for venous thrombosis, systemic embolization; TREATMENT for venous thrombosis and/or pulmonary embolus.HIGH RISK: Target INR is 2.5-3.5 for patients with mechanical heart valves.SODIUM NA-STAT [id number] 17:45:00 Test Item Value Reference Range Interpretation Comments SODIUM (BEAKER) (test code = 381) 137 meq/L 136-145 POTASSIUM-STAT [id number] 17:45:00 Test Item Value Reference Range Interpretation Comments POTASSIUM (BEAKER) (test code = 4.5 meq/L 3.6-5.5 379) SODIUM NA-STAT [id number] 17:24:00 Test Item Value Reference Range Interpretation Comments SODIUM (BEAKER) (test code = 381) 136 meq/L 136-145 POTASSIUM-STAT [id number] 17:24:00 Test Item Value Reference Range Interpretation Comments POTASSIUM (BEAKER) (test code = 4.3 meq/L 3.6-5.5 379) GLUCOSE-STAT [id number] 17:24:00 Test Item Value Reference Range Interpretation Comments GLUCOSE RANDOM (BEAKER) (test code 161 mg/dL 70-110 H = 652) HGB/HCT (H&H) - STAT [id number] 17:24:00 Test Item Value Reference Range Interpretation Comments HEMOGLOBIN (BEAKER) (test code = 8.7 GM/DL 13.0-16.8 L 410) HEMATOCRIT (BEAKER) (test code = 26.0 % 40.0-50.0 L 411) BLOOD GAS, [id number] 17:24:00 Test Item Value Reference Range Interpretation [...] (BEAKER) (test code = 1819) 21.0 CALCIUM, [id number] 17:22:00 Test Item Value Reference Range Interpretation Comments CALCIUM IONIZED (BEAKER) (test 1.34 mmol/L 1.12-1.27 H code = 698) PH, BLOOD (BEAKER) (test code = 7.33 1810) CALCIUM, [id number] 16:49:00 Test Item Value Reference Range Interpretation Comments CALCIUM IONIZED (BEAKER) (test 1.12 mmol/L 1.12-1.27 code = 698) PH, BLOOD (BEAKER) (test code = 7.46 1810) BLOOD GAS, [id number] 16:49:00 Test Item Value Reference Range Interpretation [...] (BEAKER) (test code = 1819) 97.0 GLUCOSE-STAT [id number] 16:49:00 Test Item Value Reference Range Interpretation Comments GLUCOSE RANDOM (BEAKER) (test code 152 mg/dL 70-110 H = 652) HGB/HCT (H&H) - STAT [id number] 16:49:00 Test Item Value Reference Range Interpretation Comments HEMOGLOBIN (BEAKER) (test code = 9.0 GM/DL 13.0-16.8 L 410) HEMATOCRIT (BEAKER) (test code = 26.0 % 40.0-50.0 L 411) SODIUM NA-STAT [id number] 16:48:00 Test Item Value Reference Range Interpretation Comments SODIUM (BEAKER) (test code = 381) 139 meq/L 136-145 POTASSIUM-STAT [id number] 16:48:00 Test Item Value Reference Range Interpretation Comments POTASSIUM (BEAKER) (test code = 5.0 meq/L 3.6-5.5 379) BLOOD GAS, [id number] 16:08:00 Test Item Value Reference Range Interpretation [...] (BEAKER) (test code = 1819) 70.0 POTASSIUM-STAT [id number] 16:08:00 Test Item Value Reference Range Interpretation Comments POTASSIUM (BEAKER) (test code = 5.8 meq/L 3.6-5.5 H 379) GLUCOSE-STAT [id number] 16:08:00 Test Item Value Reference Range Interpretation Comments GLUCOSE RANDOM (BEAKER) (test code 170 mg/dL 70-110 H = 652) HGB/HCT (H&H) - STAT [id number] 16:08:00 Test Item Value Reference Range Interpretation Comments HEMOGLOBIN (BEAKER) (test code = 9.0 GM/DL 13.0-16.8 L 410) HEMATOCRIT (BEAKER) (test code = 26.0 % 40.0-50.0 L 411) SODIUM NA-STAT [id number] 16:07:00 Test Item Value Reference Range Interpretation Comments SODIUM (BEAKER) (test code = 381) 135 meq/L 136-145 L BLOOD GAS, [id number] 15:42:00 Test Item Value Reference Range Interpretation [...] (BEAKER) (test code = 1819) 70.0 GLUCOSE-STAT [id number] 15:42:00 Test Item Value Reference Range Interpretation Comments GLUCOSE RANDOM (BEAKER) (test code 153 mg/dL 70-110 H = 652) HGB/HCT (H&H) - STAT [id number] 15:42:00 Test Item Value Reference Range Interpretation Comments HEMOGLOBIN (BEAKER) (test code = 9.6 GM/DL 13.0-16.8 L 410) HEMATOCRIT (BEAKER) (test code = 28.0 % 40.0-50.0 L 411) SODIUM NA-STAT [id number] 15:40:00 Test Item Value Reference Range Interpretation Comments SODIUM (BEAKER) (test code = 381) 136 meq/L 136-145 POTASSIUM-STAT [id number] 15:40:00 Test Item Value Reference Range Interpretation Comments POTASSIUM (BEAKER) (test code = 5.1 meq/L 3.6-5.5 379) BLOOD GAS, [id number] 15:13:00 Test Item Value Reference Range Interpretation [...] (BEAKER) (test code = 1819) 70.0 GLUCOSE-STAT [id number] 15:13:00 Test Item Value Reference Range Interpretation Comments GLUCOSE RANDOM (BEAKER) (test code 139 mg/dL 70-110 H = 652) HGB/HCT (H&H) - STAT [id number] 15:13:00 Test Item Value Reference Range Interpretation Comments HEMOGLOBIN (BEAKER) (test code = 8.9 GM/DL 13.0-16.8 L 410) HEMATOCRIT (BEAKER) (test code = 26.0 % 40.0-50.0 L 411) SODIUM NA-STAT [id number] 15:11:00 Test Item Value Reference Range Interpretation Comments SODIUM (BEAKER) (test code = 381) 139 meq/L 136-145 POTASSIUM-STAT [id number] 15:11:00 Test Item Value Reference Range Interpretation Comments POTASSIUM (BEAKER) (test code = 4.9 meq/L 3.6-5.5 379) [id number] 14:31:03Glenn Peraza Jr., MD 01/11/2021 8:54 PMTEE [...] aortic dissection All [facility] 14:31:03Glenn Peraza Jr., MD 01/11/2021 8:54 PMTEE [...] aortic dissection All findings [facility] 14:31:03 Glenn Peraza Jr., MD 01/11/2021 8:54 [...] aortic dissection All findings communicated [facility] team[facility] 2021-01-11 14:22:00 Test Item Value Reference Range Interpretation Comments GLUCOSE RANDOM (BEAKER) (test code 109 mg/dL 70-110 = 652) SODIUM NA-STAT [id number] 14:22:00 Test Item Value Reference Range Interpretation Comments SODIUM (BEAKER) (test code = 381) 138 meq/L 136-145 POTASSIUM-STAT [id number] 14:22:00 Test Item Value Reference Range Interpretation Comments POTASSIUM (BEAKER) (test code = 4.4 meq/L 3.6-5.5 379) BLOOD GAS, [id number] 14:22:00 Test Item Value Reference Range Interpretation [...] = 1819) 100.0 HGB/HCT (H&H) - STAT [id number] 14:22:00 Test Item Value Reference Range Interpretation Comments HEMOGLOBIN (BEAKER) (test code = 10.1 GM/DL 13.0-16.8 L 410) HEMATOCRIT (BEAKER) (test code = 30.0 % 40.0-50.0 L 411) POCT-GLUCOSE [id number] 12:53:00 Test Item Value Reference Range Interpretation Comments POC-GLUCOSE METER 121 mg/dL 70-110 H : TESTED A T [facility] 6720 (BEAKER) (test code [facility], = 1538) [address]: Forming Machine Upkeep Mechanic/Techni won ID = [id number] for Maikel robledo (contract), Syt damien RAD, CHEST, 1 VIEW, NON [id number] 10:43:00Reason for exam:->ettShould this be performed at the bedside?->Yes [facility] 1975 Sex: MFINAL REPORT RAD, CHEST, 1 VIEW, NON DEPT INDICATION: ett COMPARISON: Prior day's exam FINDINGS: Portable frontal view of the chest. IMPRESSION: Support Lines: Stable. Lungs and pleura:Stable patchy bilateral airspace disease. No pneumothorax.Heart and mediastinum: Stable contours. Additional findings: None. Signed: JR Tate Robert MDReport Verified Date/Time: 01/11/2021 10:43:44 Reading Location: [facility] Radiology Reading Room BASIC METABOLIC [id number] 10:11:00 Test Item Value Reference Range Interpretation [...] S NOT APPLICABLE FOR DIALYSIS PATIEN TS. Forming Machine Upkeep Mechanic ID - VIRGILIO [id number] 10:10:00 Test Item Value Reference Range Interpretation Comments MAGNESIUM (BEAKER) (test code = 2.3 mg/dL 1.6-2.6 627) Forming Machine Upkeep Mechanic ID - VIRGILIO [id number] 10:10:00 Test Item Value Reference Range Interpretation Comments PHOSPHORUS (BEAKER) (test code = 6.2 mg/dL 2.3-4.7 H 604) Forming Machine Upkeep Mechanic ID - VIRGILIO MBLOOD GAS, [id number] 09:38:00 Test Item Value Reference Range Interpretation [...] (BEAKER) (test code = 1819) 40.0 CALCIUM, [id number] 09:34:00 Test Item Value Reference Range Interpretation Comments CALCIUM IONIZED (BEAKER) (test 1.19 mmol/L 1.12-1.27 code = 698) PH, BLOOD (BEAKER) (test code = 7.44 1810) POCT-GLUCOSE [id number] 06:58:00 Test Item Value Reference Range Interpretation Comments POC-GLUCOSE METER 108 mg/dL 70-110 : TESTED A T [facility] 6720 (BEAKER) (test code = [facility], 1538) [address]: Forming Machine Upkeep Mechanic/Techni won ID = [id number] for September COMPREHENSIVE METABOLIC [id number] 06:13:00 Test Item Value Reference Range Interpretation [...] S NOT APPLICABLE FOR DIALYSIS PATIEN TS. Forming Machine Upkeep Mechanic ID - LINA LOperator ID - LINA LCBC W/PLT COUNT & AUTO [id number] 06:08:00 Test Item Value Reference Range Interpretation [...] CONCENTRATION Decreased (CELLAVISION)(BEAKER) (test code = 3438) Forming Machine Upkeep Mechanic ID - Zaira Simons comments: Slide comments:MAGNESIUM 2021-01-11 04:57:00 Test Item Value Reference Range Interpretation Comments MAGNESIUM (BEAKER) (test code = 2.3 mg/dL 1.6-2.6 627) Forming Machine Upkeep Mechanic ID - LINA [id number] 04:57:00 Test Item Value Reference Range Interpretation Comments PHOSPHORUS (BEAKER) (test code = 6.4 mg/dL 2.3-4.7 H 604) Forming Machine Upkeep Mechanic ID - LINA LCALCIUM, [id number] 04:43:00 Test Item Value Reference Range Interpretation Comments CALCIUM IONIZED (BEAKER) (test 1.13 mmol/L 1.12-1.27 code = 698) PH, BLOOD (BEAKER) (test code = 7.51 1810) BLOOD GAS, [id number] 04:42:00 Test Item Value Reference Range Interpretation [...] (BEAKER) (test code = 1819) 40.0 SARS-COV2/RT-PCR ([facility])2021-01-11 02:44:00 Test Item Value Reference Range Interpretation Comments SARS-COV2/RT-PCR Negative Negative The SARS-Co V-2 target (test code = 9886929) nuclei c acids are not detected in [...] Xpress SARS-CoV-2/Flu/RSV by their healthcareprovider. Results from [facility] Xpert Xpress SARS-CoV-2/Flu/RSV test should be [...] of the Act.Fact Sheet for Healthcare Providers:https ://www.[employer]/Documents/Xpert%20Xpress%20SARS%20CoV-2/Fact%20Sheets/302-390 2%60JFME-XGP-5%20HEALTHCARE%20PROVIDERS%20FACT%20SHEET.pdfFact Sheet for Healthcare Patients:https://www.[employer]/Docum ents/Xpert%20Xpress%20SARS%20Cov-2/Fact%20Sheets/302-3801%56SEUG-RBS-1%20PATIENT %20FACT%20SHEET.pdfPOCT-GLUCOSE [id number] 00:19:00 Test Item Value Reference Range Interpretation Comments POC-GLUCOSE METER 88 mg/dL 70-110 : TESTED A T [facility] 6720 (BEAKER) (test code = NORM Tenorio [facility], 1538) [address]: Forming Machine Upkeep Mechanic/Techni won ID = [id number] for Asa virgenlazaro Leonardolinda [id number] 00:01:00 Test Item Value Reference Range Interpretation Comments PHOSPHORUS (BEAKER) (test code = 9.7 mg/dL 2.3-4.7 HH 604) Forming Machine Upkeep Mechanic ID - BSBASIC METABOLIC [id number] 00:00:00 Test Item Value Reference Range Interpretation [...] S NOT APPLICABLE FOR DIALYSIS PATIEN TS. Forming Machine Upkeep Mechanic ID - [id number] 23:57:00 Test Item Value Reference Range Interpretation Comments MAGNESIUM (BEAKER) (test code = 2.8 mg/dL 1.6-2.6 H 627) Forming Machine Upkeep Mechanic ID - BSCALCIUM, [id number] 23:42:00 Test Item Value Reference Range Interpretation Comments CALCIUM IONIZED (BEAKER) (test 1.10 mmol/L 1.12-1.27 L code = 698) PH, BLOOD (BEAKER) (test code = 7.43 1810) 2D Echo W/Doppler(CW/PW/Color)2021-01-10 18:38:44Ejection FractionSLEH ECHO HEARTLAB MKCKESSON CPACSInterface, External Ris In - 01/10/2021 6:39 PM CD TTransthoracic Echocardiography Report (TTE) Demographics Patient Name CROW KAUR Date of Study 01/10/2021 SR. Gender Male Visit Number [id number] Race Unknown Room Number C826 Number Date of 1975 Referring Physician Taye Villatoro NP Age 45 year(s) Medical Unit Secretary Estela Mann [facility] Hostel Parent Radha Spence [facility] Interpreting Shama Duran MD Physician [...] (patent foramen ovale) at rest and post Arlen krupa . 4. Endocardidits of the mitral valve. [...] A trace pericardial effusion is present with fluidaround the right atrium. IVC/SVC/PA/PV/Pleural The inferior vena cava size is severely dilated . Sys tolic flow reversal noted in the hepatic vein. [...] 72.37 mmHg Pulmonic Valve Estimated PASP: 92.37 mmHgSt. [facility] Center2D Echo W/Doppler(CW/PW/Color)2021-01-10 18:38:44Ejection FractionSLEH ECHO HEARTLAB MKCKESSON CPACSInterface, External Ris In - 01/10/2021 6:39 PM CDTTransthoracic Echocardiography Report (TTE) Demographics Patient Name CROW KAUR Date of Study 01/10/2021 SR. Gender Male Visit Number [id number] Race Unknown Room Number C826 Number Date of 1975 Referring Physician Taye Villatoro NP Age 45 year(s) Medical Unit Secretary Estela Mann [facility] Hostel Parent Radha Spence [facility] Interpreting Shama Duran MD Physician Procedure Type of Study TTE procedure:2DECHO W DOPPLER(CW/PW/COLOR) (Routine) Indications:Respiratory failure or hypoxemia .Clinical HistoryESRD, HTN, Mitral endocarditis, diastolic CHFHeight: 74inches Weight: 83.01 kg (183 lbs) BSA: 2.09 [...] size is moderately enlarged . Global RV systolicfunction is depressed. 3. LA size is severely [...] PV structure and function. Aorta Aortic root size(SInus of Valsalva diameter) is normal . Pericardium [...] Septum Diastolic: 1.16 cm LV PW Diastolic: 1.26cm LVEDV Suresh's:101.33 ml LVESV Suresh's:40.15 ml LVEF [...] 72.37 mmHg Pulmonic Valve Estimated PASP: 92.37 mmHgSt. [facility] Medical Center2D Echo W/Doppler(CW/PW/Color)2021-01-10 18:38:44Ejection FractionSLEH ECHO HEARTLAB MKCKESSON CPACSInterface, External Ris In - 01/10/2021 6:39 PM CDTTransthoracic Echocardiography Report (TTE) Demographics Patient Name CROW KAUR Date of Study 01/10/2021 SR. Gender Male Visit Number [id number] Race Unknown Room Number C826 Number Date of 1975 Referring Physician Taye Villatoro NP Age 45 year(s) Medical Unit Secretary Estela Mann [facility] Hostel Parent Radha Spence [facility] Interpreting Shama Duran MD Physician Procedure Type of Study TTE procedure:2DECHO W DOPPLER(CW/PW/COLOR) (Routine) Indications:Respiratory failure or hypoxemia .Clinical HistoryESRD, HTN, Mitral endocarditis, diastolic CHFHeight: 74 inches Weight: 83.01 kg (183 lbs) BSA: 2.09 m^2 BMI: 23.5 kg/m^2HR: 130 bpm BP: 103/77 mmHg Summary 1.The left ventricle is chamber size (by vol [...] MR . Left Atrium LA size is severelyenlarged (>48 ml/m2) . Right Ventricle RV chamber [...] mitral valve leaflet. The mass measures 2.0 cmx 2.1 cm. Severe mitral regurgitation noted with systolic flow reversal in the pulmonary veins. Tricuspid Valve Dilation of the tricuspid annulus noted. Tricuspid valve leaflets appear normal. There ismoderate to severe tricuspid regurgitation. Estimated peak systolic [...] Area: 32.9 cm^2 LA Vol. Index: 100 ml/m^2Left Ventricle LVIDd: 6.09 cm LVEDV:186.01 ml LV [...] 72.37 mmHg Pulmonic Valve Estimated PASP: [facility] 17:13:00 Test Item Value Reference Range Interpretation Comments FIBRINOGEN LEVEL (BEAKER) (test 417 mg/dl 225-434 code = 658) [id number] 17:13:00 Test Item Value Reference Range Interpretation [...] CONCENTRATION Decreased (CELLAVISION)(BEAKER) (test code = 3438) Forming Machine Upkeep Mechanic ID - Samantha comments: Slide comments:PROTHROMBIN TIME/INR 2021-01-10 17:12:00 Test Item Value Reference Range Interpretation Comments PROTIME (BEAKER) 16.0 seconds 11.9-14.2 H (test code = 759) INR (BEAKER) (test 1.30 See_Comment [Automat ed message] code = 370) The system [employer] generated this result transmitted ref erence range: <=5.90. The reference range was not used to int erpret this result as normal/abnormal . RECOMMENDED COUMADIN/WARFARIN INR THERAPY RANGESSTANDARD DOSE: 2.0 - 3.0 Includes: PROPHYLAXIS for venous thrombosis, systemic embolization; TREATMENT for venous thrombosis and/or pulmonary embolus.HIGH RISK: Target INR is 2.5-3.5 for patients with mechanical heart valves.Blood gas, [id number] 16:44:00 Test Item Value Reference Range Interpretation Comments pH, Roque (test code = 7.28 7.32-7.42 L 2746-6) pCO2, Roque (test code = 56 See_Comment H [Aut omated 236) message] The sy stem which generated this result transmitted reference range : 41 - 51 mm Hg. The reference range was not used to interpret this result as normal/abnormal . pO2, Roque (test code = 43 See_Comment H [Auto mated 8375-2) message] The sy stem which generated this result transmitted reference range : 25 - 40 mm Hg. The reference range was not used to interpret this result as normal/abnormal . O2 Sat, Roque (test code 71.2 % 40-70 H = 2711-0) HCO3, Roque (test code = 26 mmol/L 21-29 48426-5) Base Excess, Roque (test -1.3 mmol/L -2-3 code = 1927-3) Patient Temperature 37.3 (test code = 8310-5) FIO2 (test code = 1819) 50 Lab Interpretation Abnormal (test code = 34744-8) [facility] gas, [id number] 16:44:00 Test Item Value Reference Range Interpretation [...] Roque (test code = 26 mmol/L 21-29 73515-3) Base Excess, Roque (test -1.3 mmol/L -2-3 code = 1927-3) Patient Temperature 37.3 (test code = 8310-5) FIO2 (test code = 1819) 50 Lab Interpretation Abnormal (test code = 60592-3) [facility] gas, [id number] 16:44:00 Test Item Value Reference Range Interpretation [...] Roque (test code = 26 mmol/L 21-29 42940-0) Base Excess, Roque (test -1.3 mmol/L -2-3 code = 1927-3) Patient Temperature 37.3 (test code = 8310-5) FIO2 (test code = 1819) 50 Lab Interpretation Abnormal (test code = 82780-2) [facility] CenterBL[facility]OD [facility], [id number] 16:44:00 Test Item Value Reference Range Interpretation [...] FIO2 (BEAKER) (test code = 1819) 50.0 [id number] 16:42:00 Test Item Value Reference Range Interpretation Comments PHOSPHORUS (BEAKER) (test code = 10.1 mg/dL 2.3-4.7 HH 604) Forming Machine Upkeep Mechanic ID - ADMINCOMPREHENSIVE METABOLIC [id number] 16:41:00 Test Item Value Reference Range Interpretation [...] S NOT APPLICABLE FOR DIALYSIS PATIEN TS. Forming Machine Upkeep Mechanic ID - [id number] 16:30:00 Test Item Value Reference Range Interpretation Comments MAGNESIUM (BEAKER) (test code = 2.8 mg/dL 1.6-2.6 H 627) Forming Machine Upkeep Mechanic ID - ADMINLactic acid, [id number] 16:25:00 Test Item Value Reference Range Interpretation Comments Lactate, Venous (test code 1.21 mmol/L 0.5-2.2 = 2872) CARLEY (test code = CARLEY) Forming Machine Upkeep Mechanic ID - ADMIN Lab Interpretation (test Normal code = 39096-4) [facility] CenterL[facility], [id number] 16:25:00 Test Item Value Reference Range Interpretation Comments Lactate, Venous (test code 1.21 mmol/L 0.5-2.2 = 2872) CARLEY (test code = CARLEY) Forming Machine Upkeep Mechanic ID - ADMIN Lab Interpretation (test Normal code = 79814-5) [facility] CenterL[facility], [id number] 16:25:00 Test Item Value Reference Range Interpretation Comments Lactate, Venous (test code 1.21 mmol/L 0.5-2.2 = 2872) CARLEY (test code = CARLEY) Forming Machine Upkeep Mechanic ID - ADMIN Lab Interpretation (test Normal code = 53566-1) [facility] CenterLACTIC [facility]ID, [id number] 16:25:00 Test Item Value Reference Range Interpretation Comments LACTATE BLOOD VENOUS (2) (BEAKER) 1.21 mmol/L 0.50-2.20 (test code = 2872) Forming Machine Upkeep Mechanic ID - ADMINCBC W/PLT COUNT & AUTO [id number] 16:13:00 Test Item Value Reference Range Interpretation [...] = 2801) RAD, CHEST, 1 VIEW, NON [id number] 16:00:00Reason for exam:->ETTShould this be performed at the bedside?->Yes [facility] 1975 Sex: MFINAL [...] MDReport Verified Date/Time: 01/10/2021 16:00:56 Reading Location: [facility] POCT-GLUCOSE [id number] 15:13:00 Test Item Value Reference Range Interpretation Comments POC-GLUCOSE METER 114 mg/dL 70-110 H : TESTED A T [facility] 6720 (TAMARA) (test code = NORM Tenorio [facility], 1538) 287[address]: Forming Machine Upkeep Mechanic/Techni won ID = [id number] for DU ABRAN ESPANA, TUNNELED CATHETER [id number] 10:49:00FINAL REPORT TUNNELED DIALYSIS CATHETER PLACEMENT, UNDER [...] MDReport Verified Date/Time: 02/03/2019 10:49:11 Reading Location: [place] [address] Angio Body ReadingRoom COMPREHENSIVE METABOLIC PANEL 2019-02-03 [...] (test code = 413) HEPATITIS B SURFACE [id number] 01:25:00 Test Item Value Reference Range Interpretation Comments HEPATITIS B SURFACE ANTIGEN (2) Nonreactive Nonreactive (BEAKER) (test code = 2585) BASIC METABOLIC [id number] 01:10:00 Test Item Value Reference Range Interpretation [...] S NOT APPLICABLE FOR DIALYSIS PATIEN TS. [id number] 01:03:00 Test Item Value Reference Range Interpretation Comments POTASSIUM (BEAKER) (test code = 5.4 meq/L 3.5-5.1 H 379) PROTHROMBIN TIME/[id number] 01:01:00 Test Item Value Reference Range Interpretation [...] for patients wiht mechanical heart valves.BASIC METABOLIC [id number] 19:02:00 Test Item Value Reference Range Interpretation [...] GFR I S NOT APPLICABLE FOR DIALYSIS EVETTE PEREZ.
--- NOTE | 2022-10-17 09:00 | EDPHYS ---
Physician Documentation [facility] Name: Jermaine Rivera Age: 47 yrs Sex: Male : 1975 Arrival Date: 10/17/2022 Time: 07:27 Bed 3 Private MD: ED Physician Pierce Mcdonald HPI: 10/17 07:38 This 47 yrs old Black Male presents to ER via EMS with complaints of CPR. ms3 07:38 Preceding the arrest, the patient collapsed, had chest pain. The arrest occurred at [facility]. Pre-hospital course: The arrest was witnessed by family. ACLS details: Initial rhythm was asystole. The presenting rhythm is normal sinus rhythm. Airway: oral intubation, Medications given by EMS prior to arrival - Epinephrine IV x 3 doses, Defibrillated X 1, Response to therapy: return of pulse. 47-year-old male presents via [facility] status post cardiac arrest. EMS states they were called out for chest pain and the call notes stated patient collapsed approximately 4 minutes prior to EMS being paged which was at approximately 6:38 AM. EMS states patient has a history of a myocardial infarction 1 year ago. EMS notes patient's stated patient had diarrhea yesterday and was not feeling well. Patient was intubated by EMS with a 7.0 ET tube. 3 epis were given, 1 shock was given. Patient was noted to be in asystole on EMS arrival. . Historical: - PMHx: 07:31 Brain bleed; CVA; Dialysis; Hypertension; Renal Disease; ss 07:40 Myocardial infarction; ss - PSHx: 07:31 heart surgery valve replaced; ss - Immunization history:: Adult Immunizations unknown. - Social history:: Smoking status: unknown. ROS: 07:38 Unable to obtain ROS due to patient is on ventilator. ms3 Exam: 07:28 ECG was reviewed by the Attending Physician. ms3 07:38 Head/Face: Normocephalic, atraumatic. ms3 07:38 Neck: Trachea midline, no cervical lymphadenopathy. Supple, full range of motion without nuchal rigidity, or vertebral point tenderness. No Meningismus. 07:38 Chest/axilla: Normal chest wall appearance and motion. Nontender with no deformity. 07:38 Eyes: Periorbital structures: appear normal, Pupils: are fixed and dilated. 07:38 Neck: External neck: is normal, Trachea: is midline with no obvious abnormalities. Vital Signs: 07:28 BP 132 / 96; Pulse 94; Resp 18 A; Pulse Ox 98% on ETT ambu; ss 07:44 BP 163 / 130; Pulse 62; Resp 18 A; ss 07:50 BP 174 / 120; Pulse 51; Resp 15 A; kc6 07:55 BP 216 / 142; Pulse 93; Resp 15 A; kc6 07:58 BP 187 / 138; Pulse 90; Resp 17 A; kc6 08:00 BP 186 / 132; Pulse 87; Resp 18 A; kc6 08:05 BP 178 / 125; Pulse 78; Resp 21; kc6 08:09 Temp 95.0(Ca); iw 08:41 BP 84 / 10; Pulse 126; Resp 25 A; kc6 08:45 BP 127 / 34; Pulse 118; Resp 32 A; kc6 Procedures: 09:01 CPR: See CPR flow sheet. Initial patient assessment: unresponsive, pupils fixed \T\ ms3 dilated, no respiratory effort, intubated, mechanical ventilation, pulses present w/ compressions, The presenting cardiac rhythm is asystole. the patient was intubated prior to arrival, Compressions: began at 08:33. Meds given: See Meds list. Defibrillation: 200 joules X 1. despite ED evaluation and treatment, the patient . CPR was stopped at 08:52. MDM: 07:36 Patient medically screened. ms3 07:54 ED course: Discussed patient's prognosis with his and 3 children. Patient's ms3 states patient fell off the bed when he collapsed. Will add CT c-spine. Patient's states that patient missed his last dialysis. Will give patient an amp of Sodium bicarb and 1 gm Calcium Chloride.. 09:03 Differential diagnosis: arrythmia, cardiac arrest, renal failure, Hyperkalemia vs ME vs ms3 ICH. Data reviewed: vital signs, nurses notes, lab test result(s), EKG, radiologic studies. I considered the following discharge prescriptions or medication management in the emergency department Medications were administered in the Emergency Department. See MAR. Independent interpretation of the following test(s) in the Emergency Department monitor worker:. Historians other than the Patient: EMS: [facility]. ED course: Patient with widening QRS on arrival back to room from IN. Sodium Bicarb and Calcium ordered. Patient rhythm went to asystole. CPR and ACLS started. See procedure note. Bedside US showed cardiac standstill with PEA.. 11:12 ED course: HIV and Hepatitis panels ordered as correction officer reformatory was exposed in the field ms3 performing mouth to mouth during CPR prior to EMS arrival.. 10/17 07:37 Order name: Basic Metabolic Panel; Complete Time: 08:39 ms3 10/17 07:37 Order name: CBC with Diff; Complete Time: 12:54 ms3 10/17 07:37 Order name: LFT's; Complete Time: 08:39 ms3 10/17 07:37 Order name: Magnesium; Complete Time: 08:39 ms3 10/17 07:37 Order name: NT PRO-BNP; Complete Time: 08:39 ms3 10/17 07:37 Order name: PT-INR; Complete Time: 08:03 ms3 10/17 07:37 Order name: Troponin HS; Complete Time: 08:39 ms3 10/17 07:37 Order name: Blood Culture Adult (2) ms3 10/17 07:38 Order name: ABG; Complete Time: 08:12 ms3 10/17 08:01 Order name: CBC Smear Scan; Complete Time: 12:54 EDMS 10/17 08:19 Order name: Glucose, Ancillary Testing; Complete Time: 08:39 EDMS 10/17 09:01 Order name: Glucose, Ancillary Testing; Complete Time: 12:54 EDMS 10/17 11:13 Order name: Hepatitis Panel; Complete Time: 14:53 ms3 10/17 11:13 Order name: HIV Ag/Ab Combo; Complete Time: 14:53 ms3 10/17 07:37 Order name: XRAY Chest (1 view); Complete Time: 08:39 ms3 10/17 08:04 Order name: CT Head C Spine; Complete Time: 08:55 ms3 10/17 07:37 Order name: EKG; Complete Time: 07:38 ms3 10/17 07:37 Order name: Cardiac monitoring; Complete Time: 07:38 ms3 10/17 07:37 Order name: EKG - Nurse/Tech; Complete Time: 07:38 ms3 10/17 07:37 Order name: IV Saline Lock; Complete Time: 07:38 ms3 10/17 07:37 Order name: Labs collected and sent; Complete Time: 07:47 ms3 10/17 07:37 Order name: O2 Per Protocol; Complete Time: 07:38 ms3 10/17 07:37 Order name: O2 Sat Monitoring; Complete Time: 07:38 ms3 EC:28 Rate is 100 beats/min. Rhythm is regular. Left axis deviation noted. ME interval is ms3 normal. QRS interval is normal. Clinical impression: NSR w/ Non-specific ST/T Changes. Interpreted by me. Reviewed by me. Administered Medications: 07:30 Drug: D50W IVP 50 ml Route: IVP; Site: left wrist; ss 07:45 Follow up: Response: No adverse reaction; Blood sugar is elevated kc6 07:55 Drug: Sodium Bicarbonate IVP 1 amp Route: IVP; Site: right jugular; kc6 08:00 Follow up: Response: No adverse reaction kc6 07:57 Drug: Calcium Chloride IVP 1 grams Route: IVP; Site: right jugular; kc6 08:05 Follow up: Response: No adverse reaction kc6 08:31 Drug: Sodium Bicarbonate IVP 1 amp Route: IVP; Site: right jugular; kc6 08:32 Drug: Calcium Chloride IVP 1 grams Route: IVP; Site: right jugular; kc6 08:34 Drug: EPINEPHrine 1:10,000 IVP 1 mg Route: IVP; Site: right jugular; kc6 08:38 Drug: Sodium Bicarbonate IVP 1 amp Route: IVP; Site: right jugular; kc6 08:39 Drug: EPINEPHrine 1:10,000 IVP 1 mg Route: IVP; Site: right jugular; kc6 08:42 Drug: Calcium Chloride IVP 1 grams Route: IVP; Site: right jugular; kc6 08:43 Drug: EPINEPHrine 1:10,000 IVP 1 mg Route: IVP; Site: right jugular; kc6 Disposition: 09:06 Critical Care: Critical Care:. ms3 12:56 Chart complete. ms3 Disposition Summary: 10/17/22 08:59 Patient Location: Home ms3 Pronouncing Physician: Pierce Mcdonald ms3 Time of : 08:52 10/17/2022 ms3 Diagnosis - Hyperkalemia ms3 - End stage renal disease ms3 - Cardiac arrest, cause unspecified ms3 - Anemia, unspecified ms3 Critical care time excluding procedures: 09:07 Critical care time: Bedside Care: 50 minutes, Family Intervention: 10 minutes. Total ms3 time: 60 minutes Signatures: Dispatcher [employer] EDMS Abner Miller PA PA jmm Smirch, Shelby, RN RN ss Pierce Mcdonald DO DO ms3 Mildred Ha RN RN kc6 Corrections: (The following items were deleted from the chart) 08:20 07:38 Head Brain Wo Cont+CT.RAD.BRZ ordered. EDMO EDMO 09:07 09:06 Critical Care: ms3 ms3
--- NOTE | 2022-10-17 09:00 | ER ---
Nurse's Notes [facility] Name: Jermaine Rivera Age: 47 yrs Sex: Male : 1975 Arrival Date: 10/17/2022 Time: 07:27 Bed 3 Private MD: Diagnosis: Hyperkalemia;End stage renal disease;Cardiac arrest, cause unspecified;Anemia, unspecified Presentation: 10/17 07:24 Chief complaint: EMS states: 911 called for complaints of CP and witnessed collapse by ss . PD first on scene and initiated CPR. Upon EMS arrival, patient noted to be in asystole. Epi given IV x 3. rhythm Vfib, defibrillated x 1. + pulses upon arrival to ED. HX of [place]. Family reports patient was not feeling well yesterday, + diarrhea. Care prior to arrival: CPR manually IV initiated. 22 GA, in the left wrist. Compressions began at 06:45. 07:24 Care prior to arrival: IO inserted to L tibia by EMS personnel. [facility] 07:30 Coronavirus screen: At this time, the client does not indicate any symptoms associated kc with coronavirus-19. Ebola Screen: No symptoms or risks identified at this time. Initial Sepsis Screen: Does the patient meet any 2 criteria? Temp <36.0*C (96.8*F)) or > 38.3*C (100.9*F). Does the patient have a suspected source of infection? No. Patient's initial sepsis screen is negative. Risk Assessment: Do you want to hurt yourself or someone else? Patient reports no desire to harm self or others. Onset of symptoms was October 17, 2022. 07:31 Acuity: FERNANDA 1 07:31 Method Of Arrival: EMS: [facility] 07:37 Care prior to arrival: Pt intubated en route to ED with 7.0 ET tube. Historical: - PMHx: 07:31 Brain bleed; CVA; Dialysis; Hypertension; Renal Disease; 07:40 Myocardial infarction; - PSHx: 07:31 heart surgery valve replaced; ss - Immunization history:: Adult Immunizations unknown. - Social history:: Smoking status: unknown. Screenin:30 [facility] ED Fall Risk Assessment (Adult) History of falling in the last 3 months, kc6 including since admission Yes- physiologic fall (2 pts) Confusion or Disorientation Yes (5 pts) Intoxicated or Sedated Yes (3 pts) Impaired Gait No (0 pts) Mobility Assist Device Used No (0 pt) Altered Elimination Yes (1 pt) Score/Fall Risk Level 3 or more points = High Risk Oriented to surroundings, Maintained a safe environment, Educated pt \T\ family on fall prevention, incl call for assistance when getting out of bed, Assessed \T\ reinforced patient's understanding of fall precautions, Hourly rounding (assess needs \T\ fall precautionary measures) done. Abuse screen: Denies threats or abuse. Denies injuries from another. Nutritional screening: No deficits noted. Tuberculosis screening: No symptoms or risk factors identified. Assessment: 07:30 General: Appears distressed, Behavior is unresponsive. Pain: Unable to use pain scale. kc6 Patient is unresponsive. Neuro: [place] Agitation-Sedation Scale (RASS): -5 Unarousable Level of Consciousness is unresponsive, Oriented to none. Cardiovascular: Heart tones S1 S2 present Capillary refill is > 3 seconds Dialysis shunt: in the left arm and right leg, Parent/caregiver reports patient has had chest pain. Respiratory: Airway via oral intubation Trachea midline Respiratory effort is even, Respiratory pattern is symmetrical, Breath sounds are diminished bilaterally. GI: Parent/caregiver reports the patient having diarrhea. : No signs and/or symptoms were reported regarding the genitourinary system. Derm: No signs and/or symptoms reported regarding the dermatologic system. Skin is intact, Skin is clammy, Skin is pale, Skin temperature is cool. Musculoskeletal: No signs and/or symptoms reported regarding the musculoskeletal system. Circulation, motion, and sensation intact. Capillary refill is > 3 seconds. 07:30 EENT: No signs and/or symptoms were reported regarding the EENT system. kc6 08:10 Reassessment: pt to CT via stretcher. kc6 08:30 Reassessment: pt returned from CT via stretcher. kc6 08:33 Reassessment: pt in PEA, code blue called, CPR initiated. kc6 08:33 CPR assessment: unresponsive, pupils pinpoint, intubated, Ambu ventilation, cyanotic, kc6 pale, pulses absent w/ compressions. Cardiac rhythm is asystole. 08:36 Reassessment: Asystole, CPR resumed. ss 08:39 Reassessment: pulse check, CPR continued. kc6 08:41 Reassessment: pulse check, pt is in vfib. shock administered. kc6 08:44 Reassessment: pulse check. wide QRS complex, pt in vtach. kc6 08:45 Reassessment: no pulse, CPR continued. kc6 08:47 Reassessment: no pulse, pt in PEA. kc6 08:49 Reassessment: BGL checked, 108. kc6 08:50 Reassessment: Dr. Mcdonald with US at bedside. no cardiac activity, no pulse, CPR kc6 continued, pt is still in PEA. 08:52 Reassessment: pulse check, PEA. no activity with ultrasound. kc6 08:52 Reassessment: time of called by Dr. Mcdonald. kc6 Vital Signs: 07:28 BP 132 / 96; Pulse 94; Resp 18 A; Pulse Ox 98% on ETT ambu; ss 07:44 BP 163 / 130; Pulse 62; Resp 18 A; ss 07:50 BP 174 / 120; Pulse 51; Resp 15 A; kc6 07:55 BP 216 / 142; Pulse 93; Resp 15 A; kc6 07:58 BP 187 / 138; Pulse 90; Resp 17 A; kc6 08:00 BP 186 / 132; Pulse 87; Resp 18 A; kc6 08:05 BP 178 / 125; Pulse 78; Resp 21; kc6 08:09 Temp 95.0(Ca); iw 08:41 BP 84 / 10; Pulse 126; Resp 25 A; kc6 08:45 BP 127 / 34; Pulse 118; Resp 32 A; kc6 ED Course: 07:30 Patient arrived in ED. bd 07:30 Rodriguez cath inserted, using sterile technique, 16 Fr., by corporation pilot, balloon inflated, to kc6 gravity drainage, other insertion by CHRISTOPHE Levy. Criticore rodriguez. 07:30 Maintain EMS IV. Dressing intact. Good blood return noted. Site clean \T\ dry. Gauge \T\ aureliano 6 site: 20G L Hand. 07:30 Patient has correct armband on for positive identification. Placed in gown. Bed in low kc6 position. Call light in reach. Side rails up X2. Adult w/ patient. 07:30 Arm band placed on left wrist. kc6 07:35 Triage completed. ss 07:36 Pierce Mcdonald DO is Attending Physician. ms3 07:50 NGT: inserted 16 Fr. via right nare. verified placement of air over stomach, verified ss return of gastric contents, to intermittent suction. Returned gastric contents. 08:02 XRAY Chest (1 view) In Process Unspecified. EDMS 08:11 bear hugger placed on for temp 95.0. ss 08:30 CT Head C Spine In Process Unspecified. EDMS 08:57 Pierce Mcdonald DO is Pronouncing Provider. ms3 08:58 Mildred Ha, RN is Primary Nurse. kc6 08:[address] [place] [address] to have juvenile court judge come to er. bd 09:00 No provider procedures requiring assistance completed. pt to home. kc6 Administered Medications: 07:30 Drug: D50W IVP 50 ml Route: IVP; Site: left wrist; ss 07:45 Follow up: Response: No adverse reaction; Blood sugar is elevated kc6 07:55 Drug: Sodium Bicarbonate IVP 1 amp Route: IVP; Site: right jugular; kc6 08:00 Follow up: Response: No adverse reaction kc6 07:57 Drug: Calcium Chloride IVP 1 grams Route: IVP; Site: right jugular; kc6 08:05 Follow up: Response: No adverse reaction kc6 08:31 Drug: Sodium Bicarbonate IVP 1 amp Route: IVP; Site: right jugular; kc6 08:32 Drug: Calcium Chloride IVP 1 grams Route: IVP; Site: right jugular; kc6 08:34 Drug: EPINEPHrine 1:10,000 IVP 1 mg Route: IVP; Site: right jugular; kc6 08:38 Drug: Sodium Bicarbonate IVP 1 amp Route: IVP; Site: right jugular; kc6 08:39 Drug: EPINEPHrine 1:10,000 IVP 1 mg Route: IVP; Site: right jugular; kc6 08:42 Drug: Calcium Chloride IVP 1 grams Route: IVP; Site: right jugular; kc6 08:43 Drug: EPINEPHrine 1:10,000 IVP 1 mg Route: IVP; Site: right jugular; kc6 Medication: 08:52 VIS not applicable for this client. kc6 Outcome: 08:52 Outcome Patient kc6 09:00 Patient : Time of 08:52 Pronounced by Pierce Mcdonald DO Body to home.kc6 09:00 Condition: 11:19 Patient left the ED. kc6 Signatures: Dispatcher [employer] EDMS Pia Sloan Melissa Martins RN RN Iza Sousa RN RN ss Sims, Marcus, DO DO ms3 Mildred Ha RN RN kc6 Corrections: (The following items were deleted from the chart) 07:44 07:31 Chief complaint: EMS states: 911 called for complaints of CP and witnessed ss collapse by . PD first on scene and initiated CPR. Upon EMS arrival, patient noted to be in asystole. Epi given IV x 3. rhythm Vfib, defibrillated x 1. + pulses upon arrival to ED. HX of [place]. Family reports patient was not feeling well yesterday, + diarrhea. 07:44 07:31 Care prior to arrival: CPR manually IV initiated. 22 GA, in the left wrist, [facility] 07:44 07:31 Compressions began at 06:45. [facility] 10:17 08:36 Reassessment: pt appears to be in asystole 6 12:14 07:24 Care prior to arrival: IO inserted to L tibia by EMS personnel kc6 12:21 07:30 General: Appears distressed, Behavior is unresponsive. kc6 6 12: 07:30 Neuro: Level of Consciousness is unresponsive, Oriented to none 6 6 12:21 07:30 Cardiovascular: Capillary refill is > 3 seconds Dialysis shunt: in the left arm kc6 and right leg, kc6 12:21 07:30 Respiratory: Airway via oral intubation Trachea midline Respiratory effort is kc6 even, Respiratory pattern is symmetrical, Breath sounds are diminished bilaterally. kc6 12: 07:30 GI: No signs and/or symptoms were reported involving the gastrointestinal system. kc6 6 12: 07:30 EENT: No signs and/or symptoms were reported regarding the EENT system. kc6 6 12: 07:30 Derm: No signs and/or symptoms reported regarding the dermatologic system. Skin kc6 is intact, Skin is pink, warm \T\ dry. kc6 12:21 07:30 Musculoskeletal: No signs and/or symptoms reported regarding the musculoskeletal kc6 system. Circulation, motion, and sensation intact. Capillary refill is > 3 seconds, kc6 12:23 08:39 Reassessment: pulse check [place] [id number] 08:30 Reassessment: [facility] [place] [id number] 08:33 Reassessment: code blue called, CPR initiated [place] [id number] 08:41 Reassessment: pulse check, pt appears to be in vfib. shock administered. [place] [id number] 08:44 Reassessment: pulse check. wide QRS complex, pt appears to be in vtach [place] [id number] 08:47 Reassessment: no pulse, pt appears to be in PEA. [place] [id number] 08:50 Reassessment: Dr. Mcdonald with US at bedside. no cardiac activity, no pulse, CPR [facility] continued, pt appears to still be in PEA [facility]
[2022-10-17 09:03] LABS: Blood Morphology Comment NOT SEEN (NOT SEEN); Platelet Estimate ADEQ; White Blood Cell Scan OK (OK)
[2022-10-17 11:25] VITALS: O2SAT 98
[2022-10-17 11:36] VITALS: TEMP 95
[2022-10-17 11:39] VITALS: BP 127/34
[2022-10-17 14:23] LABS: Hepatitis B Core IgM Nonreactive (Nonreactive); Hepatitis B surface AG Interp. Nonreactive (Nonreactive); Hepatitis C Virus Ab Nonreactive (Nonreactive)
--- NOTE | 2022-10-17 15:57 | EKG ---
Test Date: 2022-10-17 Test Time: 07:28:42 Door Technician: MELISSA MEASUREMENT RESULTS: Intervals: Rate: 100 OR: 112 QRSD: 148 QT: 426 QTc: 549 [place]: P: 44 OR: 112 QRS: -69 T: 70 INTERPRETIVE STATEMENTS: Normal sinus rhythm Left axis deviation Nonspecific intraventricular block Lateral infarct, age undetermined Inferior infarct, age undetermined Abnormal ECG Compared to ECG 03/27/2022 14:07:59 Myocardial infarct finding now present Intraventricular conduction delay no longer present T-wave abnormality no longer present Electronically Signed On 10-17-22 15:56:52 CDT by Loki Mitchell
== END 2022-10-17 11:19 | disposition expired ==
LOC: ER 07:27
DX: I46.9 Cardiac arrest, cause unspecified (principal); E87.5 Hyperkalemia; D64.9 Anemia, unspecified; I12.0 Hypertensive chronic kidney disease with stage 5 chronic kidney disease or end stage renal disease; N18.6 End stage renal disease; Z99.2 Dependence on renal dialysis
CPT/HCPCS: 93005; 87040 ×2; 85025; 80048; 36415; 83735; 85610; 82947 ×2; 80076; 84484; 87389; 83880; 80074; 70450; 72125; 71045; 82805; J0171; 94002; 94003